=== PATIENT | male | born 1970 | race Caucasian/White ===

== ENCOUNTER 2016-02-20 07:39 | Day surgery (SDC) | payer MEDICAID ==
[2016-02-20] VITALS (12 sets, daily range): BP systolic 102–148; BP diastolic 61–98
[~2016-02-20] VITALS: Ht 170.2 cm; Wt 123.4 kg
[~2016-02-20 07:39] MED LIST: ALPR0.5T PO; ALPR0.5T7 PO; ALPR1TAB7 PO; ATOR20TA66 PO; DILT240C PO; DILT240C86 PO; DOXA8TAB73 PO; DOXY100C42 PO; EPIN0.3A3 IJ; FURO40TA4 PO; GABA600T2 PO; HYDR-3816 PO; HYDR-757 PO; HYDR25TA4 PO; MECL-124 PO; METO200T32 PO; OXYC-471 PO; SULF-222 PO; TIMO5DRO5 OS; TOPI100T11 PO; TOPI50TA13 PO; TRAM50TA2 PO; TRAV5DRO OU; ZOLP10TA5 PO
--- OUTSIDE RECORDS SUMMARY | 2016-02-20 07:43 | XMS REPORT | Continuity of Care Document ---
Author Author [facility] Organization [facility] Address Unknown Phone Unavailable Care Team Providers Care Certified Fraud Examiner Name Role Phone KIMBERLY KNIGHT DO PCP Insurance Providers Payer Name Policy Number [facility]scriber [facility] [id number] Gama Velásquez 18 Self / Same As Patient Advance Directives Directive Response Recorded Date/Time Advance Directives No 10/02/15 10:30am Health Care Power of Supervisor Wet Room No 10/02/15 10:30am Organ Donor Yes 10/02/15 10:30am Resuscitation Status Full Code 10/02/15 10:30am Problems Active Problems Medical Problem Onset Date Status Cellulitis of left thigh Unknown Acute Cellulitis of left thigh Unknown Acute Drug-seeking behavior Unknown Acute Drug-seeking behavior Unknown Acute Postoperative pain Unknown Acute Postoperative pain Unknown Acute Right wrist sprain Unknown Acute Medications Current Home Medications Medication Dose Units Route Directions Days/Qty Instructions Start Date Meclizine Hcl 25 Mg 25 Mg Oral Three Times A Day as needed for Dizziness 12/09/14 Gabapentin 600 Mg 600 Mg Oral Twice A Day 03/12/15 Diltiazem Hcl 240 Mg 240 Mg Oral Daily 03/12/15 Furosemide 40 Mg 40 Mg Oral Daily 03/12/15 Zolpidem Tartrate 10 Mg 5-10 Mg Oral Bedtime as needed for Insomnia TAKES ONE-HALF TO ONE OF A (10 MG) TABLET 03/12/15 Metoprolol Succinate 200 Mg 200 Mg Oral Daily 03/12/15 Atorvastatin Calcium 20 Mg 20 Mg Oral Daily 03/12/15 Doxazosin Mesylate 8 Mg 8 Mg Oral Daily 03/12/15 Timolol Maleate 5 Ml 1 Drop Left Eye Daily 03/12/15 Travoprost 5 Ml 1 Drop Each Eye Bedtime 03/12/15 Epinephrine 0.3 Mg/0.3 Ml 0.3 Mg Injection As Directed as needed for Anaphylactic Reactions 03/12/15 Oxycodone Hcl/Acetaminophen 1 Each 1-2 Each Oral 4-6 Hrs for Pain 40 MAY TAKE 1 OR 2 TABLETS BY MOUTH EVERY 4 TO 6 HRS NEEDED FOR PAIN. DO NOT EXCEED 3000 MG TYLENOL(ACETAMINOPHEN)IN A 24 HR PERIOD(NO MORE THAN 9 TABS IN 24 HRS). LAST PAIN MEDICATION, ONE TABLET, GIVEN AT 1:25 PM 05/22/15. 05/22/15 Alprazolam 1 Mg 1 Mg Oral Bedtime 09/26/15 Topiramate 100 Mg 100 Mg Oral Twice A Day 09/26/15 Alprazolam 1 Mg 0.5 Mg Oral Daily take 1/2 of 1 mg tab 09/26/15 Hydrocodone/Acetaminophen 1 Each 1 Each Oral Every 6 Hours for Pain 40 10/02/15 Past Home Medications Medication Directions Ordered Status Trimethoprim/Sulfamethoxazole 1 Ea Tablet, 1 Tab Oral Twice A Day 08/18/14 Discontinued Doxycycline Monohydrate 100 Mg Capsule, 100 Mg Oral Twice A Day 08/18/14 Discontinued Tramadol Hcl 50 Mg Tablet, 50 Mg Oral Every 4HRS as needed for Pain 08/18/14 Discontinued Hydrocodone Bit/Acetaminophen 1 Each Tablet, 1 Ea Oral Every 6 Hours as needed for Severe Pain 08/24/14 Discontinued Alprazolam 0.5 Mg Tablet, 0.5 Mg Oral Twice A Day 12/09/14 Discontinued Hydrocodone/Acetaminophen 1 Each Tablet, 1 Tab Oral Every 6 Hours as needed for Pain 12/09/14 Discontinued Diltiazem Hcl 240 Mg Cap.er.24h, 240 Mg Oral Daily 02/14/15 Discontinued Hydrochlorothiazide 25 Mg Tablet, 25 Mg Oral Daily 03/12/15 Discontinued Alprazolam 0.5 Mg Tablet, 0.5 Mg Oral Twice A Day as needed for Anxiety 03/12 Discontinued Topiramate 50 Mg Tablet, 50 Mg Oral Twice A Day 03/12/15 Discontinued Social History Social History Problem Response Recorded Date/Time Alcohol Use Denies Use 05/22/2015 8:37am Recreational Drug Use No 05/22/2015 8:37am Recent Foreign Travel No 10/02/2015 10:30am Recent Infectious Disease Exposure No 10/02/2015 10:30am HIV/AIDS No 10/02/2015 10:30am Smoking Status Former Smoker 10/02/2015 10:35am Query Response Start Date Stop Date Smoking Status Former Smoker 03/12/2002 Hospital Discharge Instructions No hospital discharge instructions. Plan of Care Discharge Date 10/02/15 2:55pm Instructions/Education Provided ANESTHESIA INSTRUCTIONS POSTOP DR. TRINIDAD-SHOULDER SURGERY Prescriptions See Medication Section Functional Status No functional status results. Allergies, Adverse Reactions, Alerts Allergen Type Severity Reaction Status Last Updated Penicillins ([id number]) Allergy Intermediate N/V Active 05/17/15 Aspirin Allergy Intermediate STOMACH ACHE Active 05/17/15 Immunizations No immunization records. Vital Signs Acute Vital Signs Vital Response Date/Time Temperature (Fahrenheit) 96.4 degrees F (97.6 - 99.5) 10/02/2015 2:30pm Temperature (Calculated Celsius) 35.05992 degrees C (36.4 - 37.5) 10/02/2015 2:30pm Temperature Source Temporal 10/02/2015 2:30pm Pulse Rate (adult) 55 bpm (60 - 90) 10/02/2015 2:30pm Respiratory Rate 18 bpm (12 - 24) 10/02/2015 2:30pm O2 Sat by Pulse Oximetry 97 % (88 - 100) 10/02/2015 2:30pm Blood Pressure 125/64 mm Hg 10/02/2015 2:30pm Blood Pressure Mean 93 mm Hg 10/02/2015 10:30am Pain Numeric Pain Scale 4 10/02/2015 1:46pm Pain Intensity 6 10/02/2015 2:30pm Height (Feet) 5 feet 10/02/2015 10:30am Height (Inches) 7.00 inches 10/02/2015 10:30am Height (Calculated Centimeters) 170.222652 cm 10/02/2015 10:30am Weight (Pounds) 277 pounds 10/02/2015 10:30am Weight (Ounces) 3.0 oz 10/02/2015 10:30am Weight (Calculated Grams) 995981.136 gm 10/02/2015 10:30am Weight (Calculated Kilograms) 125.394784 kilograms 10/02/2015 10:30am Calculated BMI 46.09 10/02/2015 10:30am Capillary Refill Capillary Refill Less Than 3 Seconds 10/02/2015 10:30am Results Pending Laboratory Results Test Name Collection Date/Time Pending Microbiology Results Procedure Source Collection Date/Time Procedures Procedure Status Date Provider(s) Arthroscopy of right shoulder Completed 10/02/15 FRANCISCO TRINIDAD MD Encounters Encounter Location Arrival/Admit Date Discharge/Depart Date Attending Provider Departed [facility] 10/02/15 10:15am 10/02/15 2:55pm FRANCISCO TRINIDAD MD Departed Clinic [facility] 09/26/15 10:59am 09/26/15 11: 26am FRANCISCO TRINIDAD MD
--- OUTSIDE RECORDS SUMMARY | 2016-02-20 07:43 | XMS REPORT | Continuity of Care Document ---
Author Author [facility] Organization [facility] Address Unknown Phone Unavailable Care Team Providers Care Ladle Repairer Name Role Phone KIMBERLY KNIGHT DO PCP Insurance Providers Payer Name Policy Number [facility] [id number] Gama Velásquez 18 Self / Same As Patient Advance Directives Directive Response Recorded Date/Time Advance Directives No 10/02/15 10:30am Health Care Power of Medical Instructor No 10/02/15 10:30am Organ Donor Yes 10/02/15 [...] Type Severity Reaction Status Last Updated Penicillins ([id number]) Allergy Intermediate N/V Active 05/17/15 Aspirin Allergy Intermediate STOMACH ACHE Active 05/17/15 Immunizations No immunization records. Vital Signs Acute Vital Signs Vital Response Date/Time Temperature (Fahrenheit) 96.4 degrees F (97.6 - 99.5) 10/02/2015 2:30pm Temperature (Calculated Celsius) 35.28215 degrees C (36.4 - 37.5) 10/02/2015 2:30pm [...] 7.00 inches 10/02/2015 10:30am Height (Calculated Centimeters) 170.589696 cm 10/02/2015 10:30am Weight (Pounds) 277 pounds 10/02/2015 10:30am Weight (Ounces) 3.0 oz 10/02/2015 10:30am Weight (Calculated Grams) 493626.136 gm 10/02/2015 10:30am Weight (Calculated Kilograms) 125.955306 kilograms 10/02/2015 10:30am Calculated BMI 46.09 10/02/2015 10:30am Capillary Refill Capillary Refill Less Than 3 Seconds 10/02/2015 10:30am Results Pending Laboratory Results Test Name Collection Date/Time Pending Microbiology Results Procedure Source Collection Date/Time Procedures Procedure Status Date Provider(s) Arthroscopy of right shoulder Completed 10/02/15 FRANCISCO TRINIDAD MD Encounters Encounter Location Arrival/Admit Date Discharge/Depart Date Attending Provider Departed [facility] Day [facility] 10/02/15 10:15am 10/02/15 2:55pm FRANCISCO TRINIDAD MD Departed Clinic [facility] 09/26/15 10:59am 09/26/15 11: 26am FRANCISCO TRINIDAD MD
[2016-02-20] MEDS ORDERED: ceFAZolin 1,000 MG (ANCEF) VIAL ONE (07:49)
[2016-02-20] MEDS ORDERED: LIDOCAINE 1% INJ 20 ML (XYLOCAINE) VIAL ONE (07:49)
[2016-02-20] MEDS ORDERED: NS IV 1000 ML 1,000 ML ONE (07:50)
[2016-02-20] MEDS ORDERED: VANCOMYCIN 1000 MG/VIAL ONE (07:50)
[2016-02-20] MEDS ORDERED: HEParin (CATH LAB) 1,000 ML IV ONE (07:50)
[2016-02-20] MEDS ORDERED: NS (IVPB) 250 ML ONE (07:51)
[2016-02-20] MEDS ORDERED: BACITRACIN INJECTION 50,000 UNIT, SODIUM CHLORIDE 0.9% IRRIGATIO 500 ML IR ONE ×2 (08:15)
[2016-02-20 08:30] LABS: MEAN PLATELET VOLUME 12.5 FL (7.4-10.4); RED BLOOD COUNT 4.89 10^6/uL (4.35-5.85); RED CELL DISTRIBUTION WIDTH 12.8 % (10.0-14.5); WHITE BLOOD COUNT 5.6 10^3/uL (4.3-11.0)
--- NOTE | 2016-02-20 08:34 | Diagnostic Imaging Report ---
Portable upright radiograph of the chest. INDICATION: Bradycardia. FINDINGS: The lungs are clear. The heart size is normal. No effusion or pneumothorax. The mediastinum and karan appear unremarkable. IMPRESSION: Unremarkable exam. Dictated by: Dictated on workstation # [id number]
[2016-02-20 08:39] LABS: INR 1.1 (0.8-1.4); PROTHROMBIN TIME PATIENT 13.5 SEC (12.2-14.7)
[2016-02-20] MEDS: NS IV 1000 ML 1,000 ML IV SCH ×2 (08:45→16:30)
[2016-02-20 08:48] LABS: ALANINE AMINOTRANSFERASE 16 U/L (0-55); ALBUMIN 4.1 G/DL (3.2-4.5); ANION GAP 11 MMOL/L (5-14); ASPARTATE AMINO TRANSFERASE 18 U/L (5-34); BILIRUBIN,TOTAL 0.9 MG/DL (0.1-1.0); BLOOD UREA NITROGEN 14 MG/DL (7-18); BUN/CREATININE RATIO 15; CALCIUM 9.1 MG/DL (8.5-10.1); CARBON DIOXIDE 20 MMOL/L (21-32); CHLORIDE 109 MMOL/L (98-107); CREATININE SERUM 0.95 MG/DL (0.60-1.30); GFR ESTIMATED > 60; GLUCOSE 97 MG/DL (70-105); POTASSIUM 3.3 MMOL/L (3.6-5.0); SODIUM 140 MMOL/L (135-145); TOTAL PROTEIN 7.2 G/DL (6.4-8.2)
[2016-02-20] MEDS ORDERED: MIDAZOLAM 5 MG/5 ML (VERSED) VIAL ONE ×2 (10:32→11:19)
[2016-02-20] MEDS ORDERED: fentaNYL INJECTION 100 MCG/2 ML AMP ONE ×2 (10:32→11:45)
[2016-02-20] MEDS ORDERED: diphenhydrAMINE 50 MG/ML INJ (BENADRYL) ONE (11:19)
[2016-02-20] MEDS ORDERED: POTASSIUM CL 10MEQ/50ML IVPB 200 ML IV ONE (11:34)
[2016-02-20] MEDS ORDERED: NEO/POLY/BAC (NEOSPORIN) OINT 15 GM TUBE ONE (13:23)
--- NOTE | 2016-02-20 13:34 | Cardiac Procedure Note-CS/ASA ---
Pre-Procedure Note Pre-Op Procedure Note H&P Reviewed The H&P was reviewed, patient examined and no changes noted. Date H&P Reviewed: Feb 20, 2016 Time H&P Reviewed: 10:00 Conscious Sedation Pre-Proced Time Reviewed: 10:00 ASA Class: 3 Airway Mallampati Classification: (chicken ranch appropriate class) I. II. III, IV Lungs Heart ASA score ASA 1: a normal healthy patient ASA 2: a patient with a mild systemic disease (mid diabetes, controlled hypertension, obesity ASA 3: a patient with a severe systemic disease that limits activity (angina , COPD, prior Myocardial infarction) ASA 4: a patient with an incapacitating disease that is a constant threat to life (CHF, renal failure) ASA 5: a moribund patient not expected to survive 24 hrs. (ruptured aneurysm) ASA 6: a declared brain patient whose organs are being harvested. For emergent operations, add the letter E after the classification Grade 1 Sedation Plan: Analgesia, Amnesia, Plan communicated to team members, Discussed options with patient/fam, Discussed risks with patient/fam Note The patient is an appropriate candidate to undergo the planned procedure, sedation, and anesthesia. The patient immediately re-assessed prior to indication. Laurence PANG MD Feb 20, 2016 1:34 pm
[2016-02-20] MEDS ORDERED: NS IV 1000 ML 1,000 ML IV SCH (13:36)
--- NOTE | 2016-02-20 13:36 | Progress Note-Post Operative ---
Post-Operative Progess Note Pre-Operative Diagnosis severe symptomatic sick sinus syndrome and bradycardia Post-Operative Diagnosis SSS, s/p dual chamber permanent pacemaker Post-Op Procedure Note Date of Procedure: Feb 20, 2016 Name of Procedure: Permanent pacemaker implantation, LINQ removal Procedure Note/Findings dual chamber permanent pacemaker implantation, LINQ removal. Anesthesia Type Local Anesthesia, Conscious sedation Estimated blood loss (mL): 20 ml Packing: none Specimen(s) collected none Laurence PANG MD Feb 20, 2016 1:36 pm
[2016-02-20] MEDS ORDERED: PATIENT MAY USE OWN MEDS, ALL PO SCH (13:45)
--- NOTE | 2016-02-20 17:14 | Diagnostic Imaging Report ---
INDICATION: Chest pain. Portable chest at 2:17 PM FINDINGS: There is left subclavian dual-chamber pacemaker. Heart size and pulmonary vascularity are normal. Lungs are clear. There are no effusions or pneumothoraces. IMPRESSION: No acute abnormalities in the chest. Dictated by: Dictated on workstation # [id number]
[2016-02-21] VITALS: BP 117/73
[2016-02-21 04:00] VITALS: BP 116/70
[2016-02-21 04:38] LABS: MEAN PLATELET VOLUME 13.4 FL (7.4-10.4); RED BLOOD COUNT 4.12 10^6/uL (4.35-5.85); RED CELL DISTRIBUTION WIDTH 12.8 % (10.0-14.5); WHITE BLOOD COUNT 5.7 10^3/uL (4.3-11.0)
[2016-02-21 05:05] LABS: ALANINE AMINOTRANSFERASE 14 U/L (0-55); ALBUMIN 3.1 G/DL (3.2-4.5); ANION GAP 7 MMOL/L (5-14); ASPARTATE AMINO TRANSFERASE 14 U/L (5-34); BILIRUBIN,TOTAL 0.4 MG/DL (0.1-1.0); BLOOD UREA NITROGEN 14 MG/DL (7-18); BUN/CREATININE RATIO 17; CALCIUM 7.9 MG/DL (8.5-10.1); CARBON DIOXIDE 19 MMOL/L (21-32); CHLORIDE 114 MMOL/L (98-107); CREATININE SERUM 0.84 MG/DL (0.60-1.30); GFR ESTIMATED > 60; GLUCOSE 113 MG/DL (70-105); POTASSIUM 3.7 MMOL/L (3.6-5.0); SODIUM 140 MMOL/L (135-145); TOTAL PROTEIN 5.5 G/DL (6.4-8.2)
[2016-02-21] MEDS: NS IV 1000 ML 1,000 ML IV SCH (08:28)
[2016-02-21] MEDS ORDERED: VANCOMYCIN IV ADD-VANTAGE 1,000 MG in SODIUM CHLORIDE (ADD-VANTAGE) 250 ML IV SCH (09:00)
[2016-02-21 09:02] VITALS: BP 122/79
--- NOTE | 2016-02-21 09:08 | PROCEDURE REPORT ---
PROCEDURE PHYSICIAN: JOSEPHINE VALDEZ DUAL CHAMBER PERMANENT PACEMAKER IMPLANTATION: DATE OF PROCEDURE: 02/20/2016 PRIMARY PIN GAME MACHINE INSPECTOR: Dr. Alton Bourgeois INDICATION: Symptomatic severe sick sinus syndrome and bradycardia. PREOPERATIVE DIAGNOSIS: Symptomatic severe sick sinus syndrome and bradycardia. POSTOPERATIVE DIAGNOSIS: 1. Severe symptomatic sick sinus syndrome and bradycardia. 2. Atrial fibrillation/SVT during the procedure. 3. Status post dual-chamber permanent pacemaker implantation. 4. Implantable loop recorder explantation. HISTORY: Mr. Velásquez is a 45-year-old gentleman who follows with Dr. Alton Bourgeois. He was referred for evaluation of symptomatic severe sick sinus syndrome. The patient had episodes of syncope and numerous episodes of near syncope. A previous implantable loop recorder was placed. Device interrogation showed significant bradycardia, with lowest heart rate of 38 bpm. Significant bradycardia was also noted during daytime as well which correlated with significant symptoms which included syncope, near syncope, dizziness, and fatigue. The patient was therefore recommended a dual-chamber permanent pacemaker. PERFORMING PHYSICIAN: Dr. Woody Valdez MD PROCEDURE PERFORMED: 1. Dual-chamber permanent pacemaker implantation. 2. Fluoroscopy. 3. Central venous access. 4. Implantable loop recorder explantation. ANESTHESIA: Local anesthesia, conscious sedation. PROCEDURE DETAILS: After all of the patient's questions were answered, the patient was brought to the [facility]. The patient's left upper chest was prepped and draped in the usual sterile fashion. A 2 inch horizontal incision was made 1 cm below the clavicle and dissection carried down to the pectoralis fascia. Using the modified Seldinger technique and under fluoroscopy guidance, the anterior aspect of the left axillary vein was accessed 2 times. The J-wire was secured to the drapes with a mosquito clamp. A 7-Swiss sheath was introduced over one of the J- wires. The RV lead was inserted. The RV lead was directed across tricuspid valve to an apical septal portion of the right ventricle. The position was checked on fluoroscopy. The screw was deployed and the lead connected to the flaker tender. Close sensing and the pacing thresholds were obtained. Diaphragmatic pacing was ruled out. The lead was secured with a 2-0 silk tie to the underlying muscle and fascia. Next, a 7-Swiss sheath was introduced through the remaining J-wire. An atrial lead was then introduced and guided to the level of the right appendage. The screw was deployed and the lead was connected to the interrogator. Good sensing and pacing thresholds were obtained. Diaphragmatic pacing was ruled out. The leads were secured with 2-0 silk ties to the underlying muscle and fascia. The leads were connected to the device in a hermetic fashion. The device and leads were placed in the pocket. Aggressive irrigation with saline solution was done. The device was secured to the underlying muscle and fascia with a 2-0 silk tie. Interrogation of the device revealed good integrity of the leads and good connections. The wound was closed using 3 layers. The first layer was interrupted 2-0 absorbable suture followed by an uninterrupted 2-0 suture. The last layer was a single subcuticular layer with a 4-0 suture. Half-inch Steri-Strips and a small dressing were then applied to the wound. We then prepped the sternal area in the 4th intercostal space. A small incision was made and the LINQ implantable loop recorder was explanted. The site was closed with Steri-Strips. The patient tolerated the procedure well and was returned to the recovery room in stable condition with stable vital signs. DEVICE INTERROGATION: The device is [employer] MRI safe DR; model number A2DR01, serial number [id number] [employer]. Right atrial lead: Model number 386395, length 52 cm, serial number: [id number], [employer]. Right ventricular lead: Model 5076-58, length 58 cm, serial number [id number], [employer] DEVICE INTERROGATION: Right atrium capture threshold 0.9 volts at 0.5 ms. Impedance 437 ohms. P-wave was 2.1 mV. Right ventricle capture threshold was 0.4 volts at 0.5 ms. Impedance 1013. R-wave was 9.7 mV COMPLICATIONS: None. ESTIMATED BLOOD LOSS: Less than 10 mL. FLUOROSCOPY TIME: 10.8 minutes. FLUOROSCOPY DOSE: Was 145 mGy. PLAN: The patient will be transferred to the ICU. We will continue IV antibiotics. Chest x-ray will be checked to rule out pneumothorax. Device interrogation in the morning. The patient will continue on oral antibiotics for 5 days. Job ID: [id number] Dictated Date: 02/20/2016 16:36:56 Finishing Frame Runner Date: 02/21/2016 08:42:07 / claudia SIMENTAL
[2016-02-21] MEDS ORDERED: CLIN300C11 PO (12:04)
--- NOTE | 2016-02-21 12:05 | Discharge Inst-Post Device ---
Discharge Inst-Post Device Follow up/Plan Follow-up with Dr. Bourgeois. Follow-up with Dr. Valdez for wound check in one week. Heart Healthy Diet Do not lift arm on side of device placement above head for 4 weeks. Do not push and pull heavy objects for 4 weeks. Activity as tolerated. Leave dressing on until follow up at the office. Laurence VALDEZ MD Feb 21, 2016 12:05 pm
--- NOTE | 2016-02-21 12:10 | Cardiology Discharge Summary ---
Diagnosis/Chief Complaint Date of Admission 02/20/2016 Date of Discharge 02/21/2016 Admission Diagnosis Symptomatic severe sinus node dysfunction and bradycardia Final/Discharge Diagnosis Symptomatic severe sinus node dysfunction and bradycardia, status post dual- chamber permanent pacemaker, status post linq removal Chief Complaint/HPI Chief Complaint/HPI Symptomatic severe sinus node dysfunction and bradycardia Discharge Summary Procedures Dual-chamber permanent pacemaker implantation, implantable loop recorder explantation Discharge Physical Examination Mild swelling of left upper extremity. Normal left upper chest site. Normal lung and heart examination. Hospital Course Chest x-ray: No pneumothorax, Normal device interrogation Normal telemetry Radiology Reviewed Chest x-ray: No pneumothorax Discussion & Recommendations Discussion Discharge took over 30 minutes to complete. Mild left upper extremity swelling: Most likely secondary to leads placement in the axillary vein. Should improve in 2-3 days. Will follow-up in a week. Normal device function with no complication noted. Stable for discharge. Follow up appt.: Dr. Bourgeois and Dr. Valdez (wound check) Dicharge Diet: Cardiac Diet Activity as Tolerated: Yes Home Medications Reviewed patient Home Medication Reconciliation Form Discharge Home Medications: Reviewed and agree with Discharge Medication list on patient's Discharge Instruction sheet Condition at discharge Stable Instructions to patient/family Follow-up with Dr. Bourgeois. Follow-up with Dr. Valdez for wound check in one week. Diagnosis/Problems Diagnosis/Problems (1) Sinus node dysfunction Status: Chronic Laurence VALDEZ MD Feb 21, 2016 12:10 pm
[2016-02-21 12:30] VITALS: BP 132/74
[2016-02-21 13:30] VITALS: BP 132/74
== END 2016-02-21 13:30 | disposition home or self-care (01) ==
LOC: CATH 07:39 → ICU 14:30 → CATH 02-21 13:30
PROVIDERS: ATTEND Internal Medicine Interventional Cardiology
DX: I49.5 Sick sinus syndrome (principal); I48.91 Unspecified atrial fibrillation; I10 Essential (primary) hypertension; E78.5 Hyperlipidemia, unspecified; F17.210 Nicotine dependence, cigarettes, uncomplicated; Z79.899 Other long term (current) drug therapy
CPT/HCPCS: 33208; 33284; 36415; 71010; 80053; 85027; 85610; 85730; 87081; 93005

== ENCOUNTER 2016-03-18 09:16 | Outpatient (CLI) | payer MEDICAID ==
[~2016-03-18] VITALS: Ht 170.2 cm; Wt 126.1 kg
[~2016-03-18 09:16] MED LIST changes: +CLIN300C11 PO
--- OUTSIDE RECORDS SUMMARY | 2016-03-18 09:20 | XMS REPORT | Continuity of Care Document ---
Author Author [facility] Organization [facility] Address Unknown Phone Unavailable Care Team Providers Care Graphic Design Assistant Name Role Phone KIMBERLY NKIGHT DO PCP Insurance Providers Payer Name Policy Number [facility]scriber [facility] [id number] Gama Velásquez 18 Self / Same As Patient Advance Directives Directive Response Recorded Date/Time Advance Directives No 10/02/15 10:30am Health Care Power of Knitting Machine Fixer Head No 10/02/15 10:30am Organ Donor Yes 10/02/15 [...] Type Severity Reaction Status Last Updated Penicillins ([id number]) Allergy Intermediate N/V Active 05/17/15 Aspirin Allergy Intermediate STOMACH ACHE Active 05/17/15 Immunizations No immunization records. Vital Signs Acute Vital Signs Vital Response Date/Time Temperature (Fahrenheit) 96.4 degrees F (97.6 - 99.5) 10/02/2015 2:30pm Temperature (Calculated Celsius) 35.99785 degrees C (36.4 - 37.5) 10/02/2015 2:30pm [...] 7.00 inches 10/02/2015 10:30am Height (Calculated Centimeters) 170.673915 cm 10/02/2015 10:30am Weight (Pounds) 277 pounds 10/02/2015 10:30am Weight (Ounces) 3.0 oz 10/02/2015 10:30am Weight (Calculated Grams) 874551.136 gm 10/02/2015 10:30am Weight (Calculated Kilograms) 125.176093 kilograms 10/02/2015 10:30am Calculated BMI 46.09 10/02/2015 10:30am Capillary Refill Capillary Refill Less Than 3 Seconds 10/02/2015 10:30am Results Pending Laboratory Results Test Name Collection Date/Time Pending Microbiology Results Procedure Source Collection Date/Time Procedures Procedure Status Date Provider(s) Arthroscopy of right shoulder Completed 10/02/15 FRANCISCO TRINIDAD MD Encounters Encounter Location Arrival/Admit Date Discharge/Depart Date Attending Provider Departed [facility] Day [facility] 10/02/15 10:15am 10/02/15 2:55pm FRANCISCO TRINIDAD MD Departed Clinic [facility] 09/26/15 10:59am 09/26/15 11: 26am FRANCISCO TRINIDAD MD
[2016-03-18 09:37] VITALS: BP 131/81
[2016-03-18 09:58] LABS: BASOPHILS % (AUTO) 0 % (0-10); EOSINOPHILS # (AUTO) 0.1 10^3/uL (0.0-0.3); EOSINOPHILS % (AUTO) 2 % (0-10); LYMPHOCYTES # (AUTO) 1.5 X 10^3 (1.0-4.0); LYMPHOCYTES % (AUTO) 26 % (12-44); MEAN CORPUSCULAR HEMOGLOBIN 30 PG (25-34); MEAN CORPUSCULAR HGB CONC 34 G/DL (32-36); MEAN CORPUSCULAR VOLUME 88 FL (80-99); MEAN PLATELET VOLUME 12.5 FL (7.4-10.4); MONOCYTES # (AUTO) 0.6 X 10^3 (0.0-1.0); MONOCYTES % (AUTO) 10 % (0-12); NEUTROPHILS # (AUTO) 3.4 X 10^3 (1.8-7.8); NEUTROPHILS % (AUTO) 61 % (42-75); PLATELET COUNT 143 10^3/uL (130-400); RED CELL DISTRIBUTION WIDTH 12.8 % (10.0-14.5); WHITE BLOOD COUNT 5.6 10^3/uL (4.3-11.0)
[2016-03-18 10:15] LABS: ANION GAP 8 MMOL/L (5-14); BLOOD UREA NITROGEN 17 MG/DL (7-18); BUN/CREATININE RATIO 17; CALCIUM 8.6 MG/DL (8.5-10.1); CARBON DIOXIDE 21 MMOL/L (21-32); CHLORIDE 112 MMOL/L (98-107); CREATININE SERUM 0.99 MG/DL (0.60-1.30); GFR ESTIMATED > 60; GLUCOSE 92 MG/DL (70-105); SODIUM 141 MMOL/L (135-145)
== END 2016-03-18 11:00 | disposition home or self-care (01) ==
LOC: PREOP 09:16
PROVIDERS: ATTEND Orthopaedic Surgery
DX: Z01.812 Encounter for preprocedural laboratory examination (principal); Z11.2 Encounter for screening for other bacterial diseases; M19.011 Primary osteoarthritis, right shoulder
CPT/HCPCS: 36415; 80048; 85025; 87081

== ENCOUNTER 2016-03-25 06:15 | Day surgery (SDC) | payer MEDICAID ==
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
[~2016-03-25] VITALS: Ht 170.2 cm; Wt 126.1 kg
--- OUTSIDE RECORDS SUMMARY | 2016-03-25 06:23 | XMS REPORT | Continuity of Care Document ---
Author Author [facility] Organization [facility] Address Unknown Phone Unavailable Care Team Providers Care Acute Care Nursing Assistant Name Role Phone KIMBERLY KNIGHT DO PCP Insurance Providers Payer Name Policy Number Subscriber Name Relationship [facility] [id number] Gama Velásquez 18 Self / Same As Patient Advance Directives Directive Response Recorded Date/Time Advance Directives No 10/02/15 10:30am Health Care Power of Security Lead No 10/02/15 10:30am Organ Donor Yes 10/02/15 [...] Type Severity Reaction Status Last Updated Penicillins ([id number]) Allergy Intermediate N/V Active 05/17/15 Aspirin Allergy Intermediate STOMACH ACHE Active 05/17/15 Immunizations No immunization records. Vital Signs Acute Vital Signs Vital Response Date/Time Temperature (Fahrenheit) 96.4 degrees F (97.6 - 99.5) 10/02/2015 2:30pm Temperature (Calculated Celsius) 35.23075 degrees C (36.4 - 37.5) 10/02/2015 2:30pm [...] 7.00 inches 10/02/2015 10:30am Height (Calculated Centimeters) 170.692227 cm 10/02/2015 10:30am Weight (Pounds) 277 pounds 10/02/2015 10:30am Weight (Ounces) 3.0 oz 10/02/2015 10:30am Weight (Calculated Grams) 405998.136 gm 10/02/2015 10:30am Weight (Calculated Kilograms) 125.511933 kilograms 10/02/2015 10:30am Calculated BMI 46.09 10/02/2015 10:30am Capillary Refill Capillary Refill Less Than 3 Seconds 10/02/2015 10:30am Results Pending Laboratory Results Test Name Collection Date/Time Pending Microbiology Results Procedure Source Collection Date/Time Procedures Procedure Status Date Provider(s) Arthroscopy of right shoulder Completed 10/02/15 FRANCISCO TRINIDAD MD Encounters Encounter Location Arrival/Admit Date Discharge/Depart Date Attending Provider Departed [facility] 10/02/15 10:15am 10/02/15 2:55pm FRANCISCO TRINIDAD MD Departed Clinic [facility] 09/26/15 10:59am 09/26/15 11: 26am FRANCISCO TRINIDAD MD
--- OUTSIDE RECORDS SUMMARY | 2016-03-25 06:24 | XMS REPORT | Continuity of Care Document ---
Author Author [facility] Organization [facility] Address Unknown Phone Unavailable Care Team Providers [facility] Assistant Director Name Role Phone KIMBERLY KNIGHT DO PCP Insurance Providers Payer Name Policy Number [facility]scriber [facility] [id number] Gama Velásquez 18 Self / Same As Patient Advance Directives Directive Response Recorded Date/Time Advance Directives No 10/02/15 10:30am Health Care Power of Transit Manager No 10/02/15 10:30am Organ Donor Yes 10/02/15 [...] Type Severity Reaction Status Last Updated Penicillins ([id number]) Allergy Intermediate N/V Active 05/17/15 Aspirin Allergy Intermediate STOMACH ACHE Active 05/17/15 Immunizations No immunization records. Vital Signs Acute Vital Signs Vital Response Date/Time Temperature (Fahrenheit) 96.4 degrees F (97.6 - 99.5) 10/02/2015 2:30pm Temperature (Calculated Celsius) 35.21054 degrees C (36.4 - 37.5) 10/02/2015 2:30pm [...] 7.00 inches 10/02/2015 10:30am Height (Calculated Centimeters) 170.476946 cm 10/02/2015 10:30am Weight (Pounds) 277 pounds 10/02/2015 10:30am Weight (Ounces) 3.0 oz 10/02/2015 10:30am Weight (Calculated Grams) 355744.136 gm 10/02/2015 10:30am Weight (Calculated Kilograms) 125.434577 kilograms 10/02/2015 10:30am Calculated BMI 46.09 10/02/2015 10:30am Capillary Refill Capillary Refill Less Than 3 Seconds 10/02/2015 10:30am Results Pending Laboratory Results Test Name Collection Date/Time Pending Microbiology Results Procedure Source Collection Date/Time Procedures Procedure Status Date Provider(s) Arthroscopy of right shoulder Completed 10/02/15 FRANCISCO TRINIDAD MD Encounters Encounter Location Arrival/Admit Date Discharge/Depart Date Attending Provider Departed Surgical Day Care [facility] 10/02/15 10:15am 10/02/15 2:55pm FRANCISCO TRINIDAD MD Departed Clinic [facility] 09/26/15 10:59am 09/26/15 11: 26am FRANCISCO TRINIDAD MD
[2016-03-25] MEDS: LACTATED RINGERS 1,000 ML IV PRN ×2 (06:30→08:40)
[2016-03-25 06:35] VITALS: BP 116/82
[2016-03-25] MEDS ORDERED: LACTATED RINGERS 1,000 ML IV ONE ×2 (06:56→08:49)
[2016-03-25] MEDS ORDERED: fentaNYL INJECTION 100 MCG/2 ML AMP ONE (06:56)
[2016-03-25] MEDS ORDERED: DEXAMETHASONE PF 10 MG/ML (DECADRON) VIAL ONE (06:56)
[2016-03-25] MEDS ORDERED: ONDANSETRON 4 MG/2 ML (SDV) Z0FRAN ONE (06:56)
[2016-03-25] MEDS ORDERED: proPOfol 200 MG/20 ML (DIPRIVAN) VIAL IV ONE (06:56)
[2016-03-25] MEDS ORDERED: ROCURONIUM 50 MG/5 ML (ZEMURON) VIAL IV ONE (06:56)
[2016-03-25] MEDS ORDERED: MIDAZOLAM 2 MG/2 ML (VERSED) VIAL ONE (06:57)
[2016-03-25] MEDS ORDERED: CLINDAMYCIN 600 MG/50 ML IVPB 50 ML IV ONE ×2 (07:00→07:15)
[2016-03-25] MEDS ORDERED: morphine PF (DURAMORPH) 10 MG/10 ML AMP ONE (07:22)
[2016-03-25] MEDS ORDERED: BUPIVACAINE 0.25% 30 ML (SENSORCAINE) VIAL ONE (07:22)
--- NOTE | 2016-03-25 07:28 | Progress Note-Pre Operative ---
Pre-Operative Progress Note H&P Reviewed The H&P was reviewed, patient examined and no changes noted. 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
[2016-03-25] MEDS ORDERED: oxyCODONE/APAP 5/325MG (PERCOCET 5) TABLET PO PRN (07:30)
--- NOTE | 2016-03-25 07:30 | Progress Note-Post Operative ---
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
--- NOTE | 2016-03-25 08:05 | Anesthesia-Peripheral Nerve Bl ---
Procedure Start/Stop Time Date of Procedure: Mar 25, 2016 Start Time: 07:20 Stop Time: 07:30 Peripheral Nerve Block Peripheral Nerve Blockade Risk/Benefits/Alternatives discussed, including IV injection leading to complications or seizures, nerve irritation or damage, pneumothorax, total spinal anesthesia, injection, and/or bleeding. Approach: right ISB Side Confirmed: RIGHT Indication: Req Pain Mgmt by Surgeon Specifically requested for management of pain by: Dr. Bourgeois Patient Condition Vital Signs Vital Signs Date Time Temp Pulse Resp B/P Pulse Ox O2 Delivery O2 Flow Rate FiO2 03/25/16 06:35 98.4 73 18 116/82 96 Room Air Patient Condition: Sedate/contact maintained Procedure Prepartation: Chlorhexidine Position: Supine Napier: Short-bevel Needle (s) Size: 22g 2" Technique: Nerve Stimulation Motor response or parethesia o: Bicepts twitch mA: 0.5 Sedation Given: Midazolam Injectate: ropivacaine Concentration %: 0.5 Volume (ml): 30 Epinephrine used: No Narrative Injection was made incrementally with constant monitoring. Blood Aspirated: No Pain on injection noted: No Normal Resistance on injection: Yes Events Events: None:easy well tolerated Sucess: Full evaluation-pending Patient Conditon Post Peripheral Nerve Block Post Peripheral Nerve Block Vital Signs: Blood Pressure: Systolic Diastolic Heart Rate Blood Pressure Systolic: 116 Blood Pressure Diastolic: 82 Pulse Rate (adult): 73 PARKER VALLES CRNA Mar 25, 2016 08:05
[2016-03-25] MEDS ORDERED: NEOSTIGMINE (BLOXIVERZ ) 1 MG/1ML 10 ML VIAL ONE (08:49)
[2016-03-25] MEDS ORDERED: GLYCOPYRROLATE 0.2 MG/ML (ROBINUL) 2 ML VIAL ONE (08:49)
[2016-03-25] MEDS ORDERED: SEVOFLURANE (ULTANE) 15 ML INHAL SOLN ONE (08:49)
[2016-03-25] MEDS ORDERED: ONDANSETRON 4 MG/2 ML (SDV) Z0FRAN IV PRN (09:00)
[2016-03-25] MEDS ORDERED: morphine INJ 10 MG/ML 1ML (SYR OR VIAL) IV PRN (09:00)
[2016-03-25] MEDS ORDERED: morphine INJ 10 MG/ML 1ML (SYR OR VIAL) ONE (09:34)
[2016-03-25 10:10] VITALS: BP 115/81
[2016-03-25] MEDS ORDERED: OXYC-471 PO (10:27)
[2016-03-25 10:40] VITALS: BP 118/77
[2016-03-25 11:10] VITALS: BP 107/77
--- NOTE | 2016-03-26 12:45 | OPERATIVE REPORT ---
PROCEDURE PHYSICIAN: FRANCISCO TRINIDAD DATE OF PROCEDURE: 03/25/2016 PREOPERATIVE DIAGNOSIS: 1. Right primary osteoarthritis of the acromioclavicular joint. 2. Right shoulder impingement. POSTOPERATIVE DIAGNOSIS: 1. Right primary osteoarthritis of the acromioclavicular joint. 2. Right shoulder impingement. PROCEDURE: 1. Right shoulder arthroscopic distal clavicle excision. 2. Right shoulder arthroscopic acromioplasty. SURGEON: Bk CHERRY DIPPER: Jeremy Andrade who assisted throughout the procedure and closed the incisions. ANESTHESIA: General endotracheal plus interscalene nerve block as per my request for postoperative pain management by Sidra Sotelo CRNA. ESTIMATED BLOOD LOSS: Minimal. DRAINS: None. COMPLICATIONS: None. POSTOPERATIVE PLAN: Progressive range of motion as symptoms allow and sling wear for comfort. STATEMENT OF MEDICAL NECESSITY: The patient is a 45-year-old, aebis-rucv-qyegeswc gentleman with complaints of right anterior/superior shoulder pain. There is positive Neer and positive Lin sign. He is tender over his acromioclavicular joint and has pain with crossed body adduction. He failed to respond to extensive conservative measures and due to functional impairment, the patient elected to proceed with surgical intervention. Examination under anesthesia revealed forward elevation 170 degrees, external rotation 85 degrees and internal rotation 70 degrees. Arthroscopic findings demonstrated no labral pathology. Biceps anchor was absent. There was no significant glenoid or humeral head articular wear. The rotator cuff was intact throughout. The subacromial space demonstrated dense bursitis with sloping of anterolateral acromion and hypermobile acromioclavicular joint. PROCEDURE: After risks and benefits of procedure were discussed and questions were answered an informed consent was signed and placed on the chart. The operative site was confirmed in the preoperative holding area and initialed by the surgeon. The patient was then transported to the operating room and after adequate levels of general endotracheal anesthetic were obtained, a timeout was called confirming the operative site. Examination under anesthesia was performed and the right shoulder and aperture were prepped and draped in the usual sterile fashion. The shoulder joint was injected with 20 mL of fluid as was the subacromial space. A standard posterior portal was placed and diagnostic arthroscopy was carried out with the above findings noted. The scope was redirected into the subacromial space and a lateral portal was created. A bursectomy was performed and acromion was planed a flat type I acromion. The scope was then redirected in the lateral portal and through the anterior portal a bur was inserted and the distal 8 mm of clavicle was resected from posterior to anterior and from medial to lateral. The scope was then placed anteriorly to assure adequate resection. The subacromial space was copiously irrigated. Port sites closed with 3-0 nylon in subcuticular fashion. The portal sites were infiltrated with plain Marcaine and the shoulder joint was injected with Duramorph. A soft dressing and sling were applied and the patient was transported to the recovery room, awake, in stable condition Job ID: [id number] Dictated Date: 03/25/2016 08:37:38 Core Checker Date: 03/26/2016 12:37:45 / claudia
== END 2016-03-25 11:23 | disposition home or self-care (01) ==
LOC: SDC 06:15
PROVIDERS: ATTEND Orthopaedic Surgery
DX: M19.011 Primary osteoarthritis, right shoulder (principal); M75.41 Impingement syndrome of right shoulder

== ENCOUNTER → 2016-05-01 | Outpatient (CLI) | payer MEDICAID ==
[~2016-05-01] MED LIST changes: +SULF1TAB35 PO
[2016-05-01 10:03] LABS: ALANINE AMINOTRANSFERASE 15 U/L (0-55); ALBUMIN 3.8 G/DL (3.2-4.5); ANION GAP 11 MMOL/L (5-14); ASPARTATE AMINO TRANSFERASE 18 U/L (5-34); BILIRUBIN,TOTAL 0.5 MG/DL (0.1-1.0); BLOOD UREA NITROGEN 13 MG/DL (7-18); BUN/CREATININE RATIO 13; CALCIUM 9.5 MG/DL (8.5-10.1); CARBON DIOXIDE 22 MMOL/L (21-32); CHLORIDE 110 MMOL/L (98-107); CREATININE SERUM 1.02 MG/DL (0.60-1.30); GFR ESTIMATED > 60; GLUCOSE 96 MG/DL (70-105); POTASSIUM 4.1 MMOL/L (3.6-5.0); SODIUM 143 MMOL/L (135-145); TOTAL PROTEIN 6.8 G/DL (6.4-8.2)
[2016-05-01 10:23] LABS: THYROID STIMULATING HORMONE 1.26 UIU/ML (0.35-4.94)
== END ==
LOC: LAB 09:19
PROVIDERS: ATTEND Internal Medicine Cardiovascular Disease
DX: I10 Essential (primary) hypertension (principal); R00.2 Palpitations; I49.5 Sick sinus syndrome; G47.33 Obstructive sleep apnea (adult) (pediatric); Z95.0 Presence of cardiac pacemaker; I47.1 Supraventricular tachycardia; Z72.0 Tobacco use
CPT/HCPCS: 36415; 80053; 83735; 84443; 85652

== ENCOUNTER 2016-06-05 17:16 | Emergency (ER) | payer MEDICAID ==
[~2016-06-05] VITALS: Ht 170.2 cm; Wt 124.3 kg
[~2016-06-05 17:16] MED LIST changes: -SULF1TAB35 PO
[2016-06-05] MEDS ORDERED: SULF1TAB35 PO (17:34)
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
[2016-06-05 18:14] VITALS: BP 136/82
== END 2016-06-05 18:14 | disposition home or self-care (01) ==
LOC: EDUNIT# 17:16 → ER 17:18
DX: T81.31XA Disruption of external operation (surgical) wound, not elsewhere classified, initial encounter (principal); L76.31 Postprocedural hematoma of skin and subcutaneous tissue following a dermatologic procedure; I10 Essential (primary) hypertension; F17.210 Nicotine dependence, cigarettes, uncomplicated; Z95.0 Presence of cardiac pacemaker
CPT/HCPCS: 87070; 87205; 99282

== ENCOUNTER 2016-06-19 20:17 | Emergency (ER) | payer MEDICAID ==
[~2016-06-19] VITALS: Ht 170.2 cm; Wt 124.3 kg
[~2016-06-19 20:17] MED LIST changes: +SULF1TAB35 PO
[2016-06-19] MEDS ORDERED: LIDOCAINE/EPI 1%-1:100,000 (XYLOCAINE) 20ML INJ STA (21:51)
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
[2016-06-19] MEDS ORDERED: SULF1TAB35 PO (22:11)
[2016-06-19] MEDS ORDERED: RX-TRIMETH/SULFA. 160-800 MG (BACTRIM DS) TAB PPK#2 PO STA (23:04)
[2016-06-19 23:17] VITALS: BP 125/76
== END 2016-06-19 23:17 | disposition home or self-care (01) ==
LOC: EDUNIT# 20:17 → ER 20:19
DX: L76.34 Postprocedural seroma of skin and subcutaneous tissue following other procedure (principal); I10 Essential (primary) hypertension; F17.210 Nicotine dependence, cigarettes, uncomplicated; Z79.899 Other long term (current) drug therapy; Z95.0 Presence of cardiac pacemaker
CPT/HCPCS: 87070; 87205; 99283

== ENCOUNTER → 2016-11-13 | Outpatient (CLI) | payer MEDICAID ==
[~2016-11-13] MED LIST changes: +CATHETER FLUSH 10 ML SYR IV PRN; +IOHEXOL 350 MG/ML 100 ML (OMNIPAQUE 350) VIAL IV ONE; +NS 100 ML (IVPB) BAG IV ONE
--- NOTE | 2016-11-13 14:17 | Diagnostic Imaging Report ---
PROCEDURE: CT left lower extremity with and without contrast. TECHNIQUE: Multiple axial images were obtained through the left lower extremity with and without intravenous contrast. 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 Comparison with 04/16/2015 exam. Images are obtained of the left thigh. Images are pre-and postcontrast. The previously described subcutaneous tissue just anterior to the deep fascial planes in the anterior thigh is unchanged in appearance. There has been development of some fluid along the incision site anterior to this in the subcutaneous location with mean Hounsfield unit of 17. There are no enhancing masses. The deep fascial plane is normal. The muscles bundles appear normal with good preservation of tissue planes. Bone windows again show well-circumscribed 6 mm sclerotic lesion in the lateral femoral condyle. IMPRESSION: 1. There has been development of subcutaneous fluid along the incision site in the anterior thigh. Deep tissue scarring again noted unchanged. No masses or enhancing lesions have developed. The small bone island measuring 6 mm is unchanged in the lateral femoral condyle. Dictated by: Dictated on workstation # [id number]
== END ==
LOC: RAD 10:56
PROVIDERS: ATTEND Orthopaedic Surgery
DX: D49.2 Neoplasm of unspecified behavior of bone, soft tissue, and skin (principal); Z98.890 Other specified postprocedural states
CPT/HCPCS: 73702

== ENCOUNTER → 2017-02-04 | Outpatient (CLI) | payer MEDICAID ==
[~2017-02-04] VITALS: Ht 170.2 cm; Wt 127.5 kg
[~2017-02-04] MED LIST changes: -IOHEXOL 350 MG/ML 100 ML (OMNIPAQUE 350) VIAL IV ONE; -METO200T32 PO; +METO200T4 PO; -NS 100 ML (IVPB) BAG IV ONE; +REGADENOSON 0.4 MG/5 ML SYR (LEXISCAN) IV ONE
[2017-02-04 09:10] VITALS: BP 168/104
--- NOTE | 2017-02-04 19:06 | STRESS TEST ---
DATE OF SERVICE: 02/04/2017 RESTING AND POST REGADENOSON TECHNETIUM-99M TETROFOSMIN SPECT CT IMAGING ORDERING PHYSICIAN: Dr. Alton Bourgeois. PRIMARY CARE PHYSICIAN: Dr. Kenyatta Swan. OTHER PHYSICIAN: DARYN Harmon. CLINICAL DIAGNOSIS: Nonsustained ventricular tachycardia. Baseline images were carried out after injection of 10.16 mCi of technetium-99m tetrofosmin. This was followed by 0.4 mg regadenoson and 32.1 mCi of technetium-99m tetrofosmin for stress imaging. The electrocardiogram showed sinus rhythm at baseline and did not change significantly with the regadenoson infusion. Overall, he tolerated the procedure well. Review of images at rest and following stress does not indicate any significant perfusion defects consistent with significant myocardial ischemia or infarction. Gated images show normal global left ventricular systolic function with normal regional wall motion. Left ventricular ejection fraction is calculated to be 60%. Left ventricular end diastolic volume is 76 mL. TID is absent (1). CONCLUSIONS: 1. No evidence of significant myocardial ischemia or infarction on this study. 2. Normal regional wall motion. 3. Normal global left ventricular systolic function with a calculated ejection fraction of 60%. Job ID: [id number] DocumentID: [id number] Dictated Date: 02/04/2017 14:24:08 Felt Hat Inspector And Packer Date: 02/04/2017 16:41:15 Dictated By: ALTON BOURGEOIS MD, MA, FACP, FACC,
== END ==
LOC: CARD 07:26
PROVIDERS: ATTEND Internal Medicine Cardiovascular Disease
DX: I47.2 Ventricular tachycardia (principal); I47.1 Supraventricular tachycardia; G47.33 Obstructive sleep apnea (adult) (pediatric); I10 Essential (primary) hypertension; E66.8 Other obesity; Z95.0 Presence of cardiac pacemaker; Z72.0 Tobacco use
CPT/HCPCS: 78452; 93017

== ENCOUNTER → 2017-02-19 | Outpatient (CLI) | payer MEDICAID ==
[~2017-02-19] MED LIST changes: -CATHETER FLUSH 10 ML SYR IV PRN; -METO200T4 PO; +METO200T48 PO; -REGADENOSON 0.4 MG/5 ML SYR (LEXISCAN) IV ONE
[2017-02-19 12:38] LABS: BUN/CREATININE RATIO 12; CALCIUM 9.2 MG/DL (8.5-10.1); CARBON DIOXIDE 25 MMOL/L (21-32); CHLORIDE 108 MMOL/L (98-107); CREATININE SERUM 1.21 MG/DL (0.60-1.30); GFR ESTIMATED > 60; GLUCOSE 107 MG/DL (70-105); SODIUM 143 MMOL/L (135-145)
== END ==
LOC: LAB 12:01
PROVIDERS: ATTEND Nurse Practitioner Family
DX: I10 Essential (primary) hypertension (principal); I49.5 Sick sinus syndrome; R00.2 Palpitations; I47.1 Supraventricular tachycardia; I47.2 Ventricular tachycardia; E66.01 Morbid (severe) obesity due to excess calories
CPT/HCPCS: 36415; 80048; 83735

== ENCOUNTER → 2017-02-19 | Outpatient (CLI) | payer MEDICAID | LOC: CARD 10:08 | PROVIDERS: ATTEND Internal Medicine Cardiovascular Disease | DX: I47.2 Ventricular tachycardia (principal); I47.1 Supraventricular tachycardia; Z95.0 Presence of cardiac pacemaker; Z72.0 Tobacco use; G47.33 Obstructive sleep apnea (adult) (pediatric); E66.8 Other obesity; I10 Essential (primary) hypertension | CPT/HCPCS: 93306 ==

== ENCOUNTER → 2017-03-09 | Outpatient (CLI) | payer MEDICAID ==
[2017-03-09 10:45] LABS: MEAN PLATELET VOLUME 12.3 FL (7.4-10.4); RED BLOOD COUNT 5.8 10^6/uL (4.35-5.85); RED CELL DISTRIBUTION WIDTH 12.9 % (10.0-14.5); WHITE BLOOD COUNT 7.1 10^3/uL (4.3-11.0)
[2017-03-09 10:53] LABS: BILIRUBIN,URINE NEGATIVE (NEGATIVE); CLARITY,URINE CLEAR; COLOR,URINE YELLOW; GLUCOSE, URINE (UA) NEGATIVE (NEGATIVE); KETONES,URINE NEGATIVE (NEGATIVE); LEUKOCYTE ESTERASE ,URINE 1+ (NEGATIVE); NITRITE,URINE NEGATIVE (NEGATIVE); PH,URINE 6.5 (5-9); PROTEIN,URINE 2+ (NEGATIVE); UROBILINOGEN,URINE 1 MG/DL (NORMAL)
[2017-03-09 11:02] LABS: BACTERIA,URINE TRACE /HPF; SQUAMOUS EPITHELIAL CELL,UR 0-2 /HPF; WBC,URINE 0-2 /HPF
[2017-03-09 11:09] LABS: ALANINE AMINOTRANSFERASE 24 U/L (0-55); ALBUMIN 4.3 GM/DL (3.2-4.5); ALKALINE PHOSPHATASE 96 U/L (40-136); BILIRUBIN,TOTAL 0.9 MG/DL (0.1-1.0); BUN/CREATININE RATIO 12; CALCIUM 9.9 MG/DL (8.5-10.1); CARBON DIOXIDE 26 MMOL/L (21-32); CHLORIDE 105 MMOL/L (98-107); CREATINE KINASE 100 U/L (30-200); CREATININE SERUM 1.01 MG/DL (0.60-1.30); GFR ESTIMATED > 60; GLUCOSE 96 MG/DL (70-105); POTASSIUM 4.1 MMOL/L (3.6-5.0); SODIUM 138 MMOL/L (135-145); TOTAL PROTEIN 8.1 GM/DL (6.4-8.2)
[2017-03-10 08:34] LABS: HEPATITIS C ANTIBODY C Non-Reactive (Non-Reactive)
== END ==
LOC: LAB 09:15
PROVIDERS: ATTEND Nurse Practitioner
DX: I51.4 Myocarditis, unspecified (principal); I47.2 Ventricular tachycardia
CPT/HCPCS: 36415; 80053; 81000; 82085; 82550; 82652; 82784; 83516; 83520; 84155; 84165; 84443; 85027; 85549; 85652; 86038; 86141; 86160; 86200; 86225; 86235; 86430; 86644; 86645; 86695; 86696; 86703; 86704; 86706; 86709; 86787; 86803; 87799; 87804

== ENCOUNTER → 2017-05-14 | Outpatient (CLI) | payer MEDICAID ==
[~2017-05-14] MED LIST changes: +CATHETER FLUSH 10 ML SYR IV PRN; +HYDR-34 PO; -HYDR-3816 PO; +IOHEXOL 350 MG/ML 100 ML (OMNIPAQUE 350) VIAL IV ONE; +NS 250 ML (IVPB) BAG IV ONE
--- NOTE | 2017-05-14 14:56 | Diagnostic Imaging Report ---
PROCEDURE: CT chest with contrast only. TECHNIQUE: Multiple contiguous axial images were obtained through the chest after administration of intravenous contrast. INDICATION: Cough and lymphadenopathy The lungs are clear and well expanded, bilaterally. There is no significant pleural or pericardial fluid. There is no evidence of pathologically enlarged adenopathy within the mediastinum or pulmonary karan. Axillary and supraclavicular regions are also unremarkable in appearance. There is no evidence of thyroid lesion. Left anterior chest wall dual-chamber cardiac pacemaker is in place. Note is made of low-density in the liver indicating steatosis. IMPRESSION: No acute abnormality in the chest is identified. There is no evidence of pathologically enlarged adenopathy. Dictated by: Dictated on workstation # [id number]
== END ==
LOC: RAD 13:48
PROVIDERS: ATTEND Internal Medicine
DX: R05 Cough (principal); R59.1 Generalized enlarged lymph nodes
CPT/HCPCS: 71260

== ENCOUNTER 2017-07-08 20:26 | Emergency (ER) | payer MEDICAID ==
[~2017-07-08] VITALS: Ht 170.2 cm; Wt 120.2 kg
[~2017-07-08 20:26] MED LIST changes: -CATHETER FLUSH 10 ML SYR IV PRN; -IOHEXOL 350 MG/ML 100 ML (OMNIPAQUE 350) VIAL IV ONE; -NS 250 ML (IVPB) BAG IV ONE
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
[2017-07-08] MEDS ORDERED: METH2.5T (20:51)
[2017-07-08 20:54] LABS: BASOPHILS % (AUTO) 0 % (0-10); EOSINOPHILS # (AUTO) 0.1 10^3/uL (0.0-0.3); EOSINOPHILS % (AUTO) 1 % (0-10); HEMATOCRIT 43 % (40-54); HEMOGLOBIN 14.9 G/DL (13.3-17.7); LYMPHOCYTES # (AUTO) 1.1 X 10^3 (1.0-4.0); LYMPHOCYTES % (AUTO) 11 % (12-44); MEAN CORPUSCULAR HEMOGLOBIN 30 PG (25-34); MEAN CORPUSCULAR HGB CONC 35 G/DL (32-36); MEAN CORPUSCULAR VOLUME 86 FL (80-99); MEAN PLATELET VOLUME 12.1 FL (7.4-10.4); MONOCYTES # (AUTO) 0.9 X 10^3 (0.0-1.0); MONOCYTES % (AUTO) 9 % (0-12); NEUTROPHILS # (AUTO) 7.3 X 10^3 (1.8-7.8); NEUTROPHILS % (AUTO) 78 % (42-75); PLATELET COUNT 167 10^3/uL (130-400); RED BLOOD COUNT 4.95 10^6/uL (4.35-5.85); RED CELL DISTRIBUTION WIDTH 14.3 % (10.0-14.5); WHITE BLOOD COUNT 9.3 10^3/uL (4.3-11.0)
[2017-07-08] MEDS ORDERED: CEFD300C3 PO (20:54)
--- NOTE | 2017-07-08 21:12 | Diagnostic Imaging Report ---
INDICATION: Short of air. Soft tissue carcinoma Two views of the chest show normal heart size and vascularity. The lungs are clear. There is no effusion or pneumothorax. A pacemaker is present. IMPRESSION: No acute abnormality is seen with no change from 12/17/2016. Dictated by: Dictated on workstation # [id number]
[2017-07-08] MEDS ORDERED: BENZ-13 PO (21:22)
[2017-07-08] MEDS ORDERED: LIDOCAINE 1% INJ 20 ML 20 ML VIAL ONE (21:24)
[2017-07-08] MEDS ORDERED: LIDOCAINE 1% INJ 50 ML (XYLOCAINE) VIAL IJ ONE (21:30)
[2017-07-08] MEDS ORDERED: cefTRIAXone 1 GM (ROCEPHIN) VIAL IM ONE (21:30)
[2017-07-08] MEDS ORDERED: diphenhydrAMINE 25 MG TAB (BENADRYL) PO ONE (21:30)
[2017-07-08 21:32] VITALS: BP 157/99
== END 2017-07-08 21:33 | disposition home or self-care (01) ==
LOC: EDUNIT# 20:26 → ER 20:28
DX: J06.9 Acute upper respiratory infection, unspecified (principal); G47.30 Sleep apnea, unspecified; E78.00 Pure hypercholesterolemia, unspecified; I10 Essential (primary) hypertension; F41.9 Anxiety disorder, unspecified; F43.10 Post-traumatic stress disorder, unspecified; F91.3 Oppositional defiant disorder; G43.909 Migraine, unspecified, not intractable, without status migrainosus; M19.011 Primary osteoarthritis, right shoulder; Z88.0 Allergy status to penicillin; Z88.6 Allergy status to analgesic agent; Z87.891 Personal history of nicotine dependence; Z95.0 Presence of cardiac pacemaker
CPT/HCPCS: 36415; 71046; 85025; 96372

== ENCOUNTER 2018-02-04 13:36 | Emergency (ER) | payer MEDICAID ==
[~2018-02-04] VITALS: Ht 170.2 cm; Wt 122.5 kg
[~2018-02-04 13:36] MED LIST changes: +BENZ100C18 PO; +CEFD300C3 PO; -EPIN0.3A3 IJ; +EPIN0.3P18 IJ; +MTX2.5T
--- OUTSIDE RECORDS SUMMARY | 2018-02-04 13:42 | XMS REPORT | Clinical Summary ---
Author Author [facility] Organization [facility] Address Unknown Phone Unavailable Care Team Providers Care Clay Modeler Name Role Phone Yana Chadwick MD 21 Shreyas Puentes MD 3 Eden Hennessy MD PCP Source Comments Some departments are not documenting in the electronic medical record. If you do not see the information that you expected, contact Release of Information in the Health Information Management department at [phone] for further assistance in locating additional records.[facility] Allergies Comments Active Allergy Reactions Severity Noted Date Adhesive Tape (Rosins) BLISTERS High 11/23/2017 Aspirin RASH Medium 09/30/2016 Penicillins RASH Medium 09/30/2016 Venom-Wasp ANAPHYLAXIS High 09/30/2016 Medications End Date Status Medication Sig Dispensed Refills Start Date Active ALPRAZolam (XANAX) 1 mg TAKE ONE 0 tablet TABLET BY 7 MOUTH TWICE DAILY FOR ANXIETY Active atorvastatin (LIPITOR) 20 TAKE ONE 0 05/17/201 mg tablet TABLET BY 7 MOUTH ONCE DAILY Active HYDROcodone/acetaminophen TAKE 1 TABLET 0 (NORCO) 7.5/325 mg tablet BY MOUTH FOUR 7 TIMES DAILY Active metoprolol XL (TOPROL XL) TAKE ONE 0 200 mg extended release TABLET BY 7 tablet MOUTH TWICE DAILY Active ondansetron (ZOFRAN ODT) DISSOLVE ONE 0 4 mg rapid dissolve TABLET BY 7 tablet MOUTH EVERY 8 HOURS NEEDED Active topiramate (TOPAMAX) 100 TAKE ONE 1 08/07/201 mg tablet TABLET BY 7 MOUTH TWICE DAILY Active EPINEPHrine(+) (EPIPEN) 1 Inject 0.3 mg 0 mg/mL injection pen into the (2-Pack) muscle once as needed. Inject 0.3 mg (1 Pen) into thigh if needed for anaphylactic reaction. May repeat in 5-15 minutes if needed. Active diltiazem CD (CARDIZEM Take 300 mg 0 CD) 300 mg capsule by mouth every morning. Active pregabalin (LYRICA) 150 Take 1 60 capsule 3 08/25/201 mg capsule capsule by 8 mouth twice daily. Active losartan(+) (COZAAR) 100 Take 1 tablet 90 tablet 3 09/03/201 mg tablet by mouth 8 daily. Active folic acid (FOLVITE) 1 mg Take 1 mg 130 tablet 3 tablet daily, except 8 for the day Methotrexate is taken, hold 12 hours and increase to 5 mg once per week Active nitroglycerin (NITROSTAT) Place 0.4 mg 0 0.4 mg tablet under tongue every 5 minutes as needed for Chest Pain. Max of 3 tablets, call 911. Active methotrexate sodium Take six 24 tablet 0 (RHEUMATREX) 2.5 mg tablets by 8 tablet mouth every 7 days. 02/04/2018 Discontinued methotrexate sodium Take six 24 tablet 0 (RHEUMATREX) 2.5 mg tablets by 8 tabletIndications: mouth every 7 Sarcoidosis days. Active Problems Problem Noted Date Class 3 obesity in adult 08/06/2017 Coxsackie viruses 04/28/2017 Sarcoma 04/28/2017 Tobacco abuse 04/28/2017 Myocarditis 02/26/2017 NSVT (nonsustained ventricular tachycardia) 02/26/2017 Cardiac device in situ 01/14/2017 Sinus node dysfunction 11/02/2016 Overview: Dr. Valdez S/p PPM implant- Advisa 02/20/16 PSVT (paroxysmal supraventricular tachycardia) 11/02/2016 Hypertension 11/02/2016 MELI (obstructive sleep apnea) 11/02/2016 History of lipoma 09/30/2016 Pain of left thigh 09/30/2016 Pain of left lower leg 09/30/2016 Encounters Care Team Description Date Type Specialty Leander Tovar MD 02/04/2018 Refill Pulmonology Cindy Swan RN 02/03/2018 Telephone Cardiology [facility] Labs Only (Historical labs reviewed by PCP) 01/26/2018 Documentation Cardiology Leander Tovar MD General Question 01/07/2018 Telephone Pulmonology Leander Tovar MD Other 01/07/2018 Telephone Pulmonology Leander Tovar MD 12/29/2017 Refill Pulmonology Chapin Soto MD 12/28/2017 Hospital Radiology Encounter Chapin Soto MD Complex regional pain syndrome type 1 of left lower extremity (Primary Dx) 12/28/2017 Procedure visit Anesthesia Pain Leander Tovar MD Medication Follow-up 12/01/2017 Telephone Pulmonology Chapin Soto MD 11/23/2017 Hospital Radiology Encounter Chapin Soto MD Complex regional pain syndrome type 1 of left lower extremity 11/23/2017 Procedure visit Anesthesia Pain Chapin Soto MD Complex regional pain syndrome type 1 of left lower extremity (Primary Dx) 11/23/2017 Orders Only Anesthesia Pain Leander Tovar MD Medication Refill 11/23/2017 Telephone Pulmonology Eden Hennessy MD Essential hypertension (Primary Dx) 11/22/2017 Orders Only Pulmonology [facility] Labs Only (CMP and CBC with Diff. reviewed by PCP) 11/19/2017 Documentation Cardiology from Last 3 Months Family History Medical History Relation Name Comments Diabetes Brother Hypertension Brother Blood Clots Father Coronary Artery Disease Father Diabetes Father Heart Attack Father Heart Disease Father High Cholesterol Father Hypertension Father Kidney Disease Father Heart Disease Maternal Aunt Heart Disease Maternal Aunt Heart Attack Maternal Grandfather Alzheimer's Maternal Grandmother Heart Attack Maternal Uncle Heart Disease Maternal Uncle Anxiety Mother Arthritis-rheumatoid Mother Blood Clots Mother Cancer Mother Coronary Artery Disease Mother Diabetes Mother Heart Attack Mother Heart Disease Mother High Cholesterol Mother Hypertension Mother Sleep disorder Mother sleep apnea Thyroid Disease Mother Diabetes Paternal Grandfather Dialysis Paternal Grandfather Kidney Failure Paternal Grandfather Unknown to Patient Paternal Grandmother Cancer Paternal bone Uncle Diabetes Paternal Uncle Kidney Failure Paternal Uncle Diabetes Paternal Uncle Heart problem Paternal Uncle Heart Disease Sister Relation Name Status Comments Brother Alive Father (Age 61) Maternal Aunt Alive Maternal Aunt (Age mid 70s) Maternal Grandfather Maternal Grandmother (Age late 60) Maternal Uncle (Age 40) Mother Alive Paternal Grandfather lost both kidneys Paternal Grandmother Paternal Uncle (Age 60) Paternal Uncle (Age 60s) Sister Alive Social History Date Tobacco Use Types Packs/Day Years Used Quit: 10/18/2016 Current Every Day Smoker Cigarettes 0.25 Smokeless Tobacco: Never Used Alcohol Use Drinks/Week oz/Week Comments No Sex Assigned at Date Recorded Not on file Industry Job Start Date Occupation Not on file Not on file Not on file Travel End Travel History Travel Start No recent travel history available. Last Filed Vital Signs Time Taken Vital Sign Reading 12/28/2017 10:30 AM PAPER PATTERN FOLDER Blood Pressure 118/62 12/28/2017 10:30 AM PAPER PATTERN FOLDER Pulse 75 12/28/2017 10:26 AM PAPER PATTERN FOLDER Temperature 36.8 C (98.2 F) 12/28/2017 9:51 AM PAPER PATTERN FOLDER Respiratory Rate 16 12/28/2017 10:30 AM PAPER PATTERN FOLDER Oxygen Saturation 100% - Inhaled Oxygen - Concentration 12/28/2017 9:51 AM PAPER PATTERN FOLDER Weight 123.8 kg (273 lb) 12/28/2017 9:51 AM PAPER PATTERN FOLDER Height 170.2 cm (5' 7") 12/28/2017 9:51 AM PAPER PATTERN FOLDER Body Mass Index 42.76 Plan of Treatment Health Maintenance Due Date Last Done Comments PHYSICAL (COMPREHENSIVE) 1977 EXAM HIV SCREENING 1985 DTAP/TDAP VACCINES ( - 1988 Tdap) INFLUENZA VACCINE 09/08/2017 Implants Device Identifier Shelf Expiration Date Model / Serial / Lot Implanted Type Area Manufactur er Pacemaker Pacemaker [id number] / [id number] / Medtronic-02/20/2016 Implanted: Qty: 1 on 02/20/2016 by Yumiko Pierre MD Procedures Comments Procedure Name Priority Date/Time Associated Diagnosis CBC Routine 01/21/2018 COMPREHENSIVE METABOLIC Routine 01/21/2018 PANEL [place] INJECTION ANES Routine 12/28/2017 Complex regional pain LMBR/THRC PARAVERTBRL 10:30 AM PAPER PATTERN FOLDER syndrome type 1 of left SYMPATHETIC lower extremity FLUORO GUIDANCE FOR SPINE Routine 12/28/2017 Pain INJ RAD 10:21 AM PAPER PATTERN FOLDER FLUORO GUIDANCE FOR SPINE Routine 11/23/2017 Pain INJ RAD 9:51 AM CDT [place] INJECTION ANES Routine 11/23/2017 Complex regional pain LMBR/THRC PARAVERTBRL 9:45 AM CDT syndrome type 1 of left SYMPATHETIC lower extremity CBC AND DIFF Routine 11/18/2017 COMPREHENSIVE METABOLIC Routine 11/18/2017 PANEL CBC AND DIFF Routine 11/17/2017 COMPREHENSIVE METABOLIC Routine 11/17/2017 PANEL from Last 3 Months Results * CBC (01/21/2018) White Blood Cells 7.5 OTHER OUTSIDE LAB RBC 5.34 OTHER OUTSIDE LAB Hemoglobin 16.6 OTHER OUTSIDE LAB Hematocrit 48.8 OTHER OUTSIDE LAB MCV OTHER OUTSIDE LAB MCH OTHER OUTSIDE LAB MCHC OTHER OUTSIDE LAB Platelet Count 167 OTHER OUTSIDE LAB MPV OTHER OUTSIDE LAB RDW OTHER OUTSIDE LAB Specimen Blood - Blood Narrative Performed At Performing Organization Address City/State/Zipcode Phone Number OTHER OUTSIDE LAB * COMPREHENSIVE METABOLIC PANEL (01/21/2018) Only the most recent of 3 results within the time period is included. Sodium 140 OTHER OUTSIDE LAB Potassium 4.2 OTHER OUTSIDE LAB Chloride 102 OTHER OUTSIDE LAB CO2 29 OTHER OUTSIDE LAB Blood Urea Nitrogen 14 OTHER OUTSIDE LAB Creatinine 1.10 OTHER OUTSIDE LAB Glucose 124 (H) 65 - 99 OTHER OUTSIDE LAB Calcium 10.0 OTHER OUTSIDE LAB Total Protein 7.3 OTHER OUTSIDE LAB Total Bilirubin 1.0 OTHER OUTSIDE LAB Albumin 4.3 OTHER OUTSIDE LAB Alk Phosphatase 95 OTHER OUTSIDE LAB AST (SGOT) 31 OTHER OUTSIDE LAB ALT (SGPT) 31 OTHER OUTSIDE LAB eGFR Non 80 OTHER OUTSIDE LAB eGFR 92 OTHER OUTSIDE LAB Anion Gap OTHER OUTSIDE LAB Specimen Blood - Blood Narrative Performed At Performing Organization Address City/State/Zipcode Phone Number OTHER OUTSIDE LAB * [facility] (12/28/2017 10:30 AM PAPER PATTERN FOLDER) Narrative Performed At Chapin Soto MD 01/06/20186:00 PM OTHER OUTSIDE LAB Nerve Block Nerve: lumbar sympathetic Laterality: left Consent: Consent obtained: verbal and written Consent given by: patient Alternatives discussed: alternative treatment [place] Protocol: Relevant documents: relevant documents present and verified Test results: test results available and properly labeled Imaging studies: imaging studies available Required items: required blood products, implants, devices, and special equipment available Site marked: the operative site was marked Time out: Immediately prior to procedure a "time out" was called to verify the correct patient, procedure, equipment, manager sales support and site/side marked as required Procedures Details: Indications: Pain Relief Prep: 2% chlorhexidine Patient position: prone Needle size: 25 G Guidance: fluoroscopy Medications administered: 8 mL bupivacaine PF 0.25 % Outcome: Pain improved Performing Organization Address City/[facility] Phone Number OTHER OUT[facility]IDE LAB * FLUORO GUIDANCE FOR SPINE INJ RAD (12/28/2017 10:21 AM PAPER PATTERN FOLDER) Only the most recent of 2 results within the time period is included. Narrative Performed At This order has been auto finalized and does not contain a result. [facility] Performing Organization Address [facility] Phone Number [facility] * [facility]ERVE [facility] (11/23/2017 9:45 AM CDT) Narrative Performed At Chapin Soto MD 11/24/20178:28 AM OTHER OUTSIDE LAB Nerve Block Nerve: lumbar sympathetic Laterality: left Consent: Consent obtained: verbal and written Consent given by: patient Alternatives discussed: alternative treatment [place] Protocol: Relevant documents: relevant documents present and verified Test results: test results available and properly labeled Imaging studies: imaging studies available Required items: required blood products, implants, devices, and special equipment available Site marked: the operative site was marked Patient identity confirmed: Patient identify confirmed verbally with patient. Time out: Immediately prior to procedure a "time out" was called to verify the correct patient, procedure, equipment, manager sales support and site/side marked as required Procedures Details: Prep: 2% chlorhexidine Patient position: prone Guidance: fluoroscopy Medications administered: 8 mL bupivacaine PF 0.25 % Outcome: Pain improved Performing Organization Address City/[facility] Phone Number OTHER OUTSIDE LAB * CBC AND DIFF (11/18/2017) Only the most recent of 2 results within the time period is included. White Blood Cells 9.1 OTHER OUTSIDE LAB RBC 4.91 OTHER OUTSIDE LAB Hemoglobin 14.9 OTHER OUTSIDE LAB Hematocrit 42.8 OTHER OUTSIDE LAB MCV 87.2 OTHER OUTSIDE LAB MCH 30.3 OTHER OUTSIDE LAB MCHC 34.8 OTHER OUTSIDE LAB Platelet Count 221 OTHER OUTSIDE LAB MPV 12.1 OTHER OUTSIDE LAB RDW 14.4 OTHER OUTSIDE LAB Neutrophils 74.5 OTHER OUTSIDE LAB Absolute Neutrophil Count 6,780 OTHER OUTSIDE LAB Lymphocytes 17.3 OTHER OUTSIDE LAB Absolute Lymph Count 1,574 OTHER OUTSIDE LAB Monocytes 5.5 OTHER OUTSIDE LAB Absolute Monocyte Count 501 OTHER OUTSIDE LAB Eosinophil 0.9 OTHER OUTSIDE LAB Absolute Eosinophil Count 82 OTHER OUTSIDE LAB Basophils 0.9 OTHER OUTSIDE LAB Absolute Basophil Count 82 OTHER OUTSIDE LAB Atypical Lym OTHER OUTSIDE LAB Metamyelocyte OTHER OUTSIDE LAB Myelocyte OTHER OUTSIDE LAB Promyelocyte OTHER OUTSIDE LAB Blast OTHER OUTSIDE LAB RBC Morph OTHER OUTSIDE LAB WBC Morphology OTHER OUTSIDE LAB Specimen Blood - Blood Narrative Performed At Performing Organization Address City/State/Zipcode Phone Number OTHER OUTSIDE LAB from Last 3 Months Insurance Payer Benefit Subscriber ID Type Phone Address Plan / Group [employer] [place] [employer] xxxxxxxxxxx Medicaid [place] (Home) [place] [address] Advance Directives Patient has advance care planning documents on file. For more information, please contact: [facility] [address] [place] [address]
--- OUTSIDE RECORDS SUMMARY | 2018-02-04 13:43 | XMS REPORT | Encounter Summary ---
Author Author [facility] Organization [facility] Address Unknown Phone Unavailable Care Team Providers Care Scada Technician Name Role Phone Yana Chadwick MD 21 Shreyas Puentes MD 3 Eden Hennessy MD PCP Encounter Details Care Team Description Date Type Department Chapin Soto MD [address] [place], [place] [id number] 11/23/2017 Hospital [facility] Encounter [place] [facility] [address] [place] [address] Social History Date Tobacco Use Types Packs/Day Years Used Quit: 10/18/2016 Current Every Day Smoker Cigarettes 0.25 Smokeless Tobacco: Never Used Alcohol Use Drinks/Week oz/Week Comments No Sex Assigned at Date Recorded Not on file Industry Job Start Date Occupation Not on file Not on file Not on file Travel End Travel History Travel Start No recent travel history available. as of this encounter Functional Status Date of Assessment Functional Status Response 11/03/2017 Does the patient have a hearing impairment: No 11/03/2017 Does the patient have a visual impairment: No 11/03/2017 Does the patient have impaired ambulation: No 11/03/2017 Does the patient have an activity of daily living No (ADL) impairment: 11/03/2017 Does the patient have an instrumental activity of No daily living (IADL) impairment: Date of Assessment Cognitive Status Response 11/03/2017 Does the patient have a cognitive impairment: No as of this encounter Medications at Time of Discharge Start Date End Date Medication Sig Dispensed Refills 09/11/2016 ALPRAZolam (XANAX) 1 mg TAKE ONE 0 tablet TABLET BY MOUTH TWICE DAILY FOR ANXIETY 06/24/2016 atorvastatin (LIPITOR) 20 TAKE ONE 0 mg tablet TABLET BY MOUTH ONCE DAILY diltiazem CD (CARDIZEM Take 300 mg 0 CD) 300 mg capsule by mouth every morning. EPINEPHrine(+) (EPIPEN) 1 Inject 0.3 mg 0 mg/mL injection pen into the (2-Pack) muscle once as needed. Inject 0.3 mg (1 Pen) into thigh if needed for anaphylactic reaction. May repeat in 5-15 minutes if needed. 10/01/2017 folic acid (FOLVITE) 1 mg Take 1 mg 130 tablet 3 tablet daily, except for the day Methotrexate is taken, hold 12 hours and increase to 5 mg once per week 09/11/2016 HYDROcodone/acetaminophen TAKE 1 TABLET 0 (NORCO) 7.5/325 mg tablet BY MOUTH FOUR TIMES DAILY 09/03/2017 losartan(+) (COZAAR) 100 Take 1 tablet 90 tablet 3 mg tablet by mouth daily. 09/10/2016 metoprolol XL (TOPROL XL) TAKE ONE 0 200 mg extended release TABLET BY tablet MOUTH TWICE DAILY nitroglycerin (NITROSTAT) Place 0.4 mg 0 0.4 mg tablet under tongue every 5 minutes as needed for Chest Pain. Max of 3 tablets, call 911. 09/21/2016 ondansetron (ZOFRAN ODT) DISSOLVE ONE 0 4 mg rapid dissolve TABLET BY tablet MOUTH EVERY 8 HOURS NEEDED 08/25/2017 pregabalin (LYRICA) 150 Take 1 60 capsule 3 mg capsule capsule by mouth twice daily. 08/07/2016 topiramate (TOPAMAX) 100 TAKE ONE 1 mg tablet TABLET BY MOUTH TWICE DAILY 11/23/2017 12/29/2017 methotrexate sodium Take six 24 tablet 0 (RHEUMATREX) 2.5 mg tablets by tabletIndications: mouth every 7 Sarcoidosis days. as of this encounter Plan of Treatment Not on fileas of this encounter Procedures Comments Procedure Name Priority Date/Time Associated Diagnosis FLUORO GUIDANCE FOR SPINE Routine 11/23/2017 Pain INJ RAD 9:51 AM CDT in this encounter Results * FLUORO GUIDANCE FOR SPINE INJ RAD (11/23/2017 9:51 AM CDT) Narrative Performed At This order has been auto finalized and does not contain a result. CYRUS MCWILLIAMS Performing Organization Address City/State/Zipcode Phone Number CYRUS MCWILLIAMS in this encounter Visit Diagnoses Diagnosis Pain Generalized pain in this encounter
--- OUTSIDE RECORDS SUMMARY | 2018-02-04 13:43 | XMS REPORT | Encounter Summary ---
Author Author [facility] Organization [facility] Address Unknown Phone Unavailable Care Team Providers Care Table Filler Name Role Phone Yana Chadwick MD 21 Shreyas Puentes MD 3 Eden Hennessy MD PCP Encounter Details Care Team Description Date Type Department Cindy Swan RN 02/03/2018 Telephone Cardiovascular Medicine [facility] [place] [address] Social History Date Tobacco Use Types Packs/Day [...] Status Date of Assessment Functional Status Response 12/28/2017 Does the patient have a hearing impairment: No 12/28/2017 Does the patient have a visual impairment: Yes 12/28/2017 Does the patient have impaired ambulation: No 11/03/2017 Does the patient have an activity of daily living No (ADL) impairment: 11/03/2017 Does the patient have an instrumental activity of No daily living (IADL) impairment: Date of Assessment Cognitive Status Response 12/28/2017 Does the patient have a cognitive impairment: No as of this encounter Miscellaneous Notes * Telephone Encounter - Cindy Swan RN - 02/03/2018 9:38 AM GEAR TECHNICIAN received call from MIKI yesterday, unsure who called. appears it was CVM, sent flag to our schedulers to c/b TECHNICIAN * Telephone Encounter - Cindy Swan RN - 02/03/2018 9:37 AM GEAR TECHNICIAN ----- Message from Cherry Fabian LPN sent at 02/03/2018 9:04 AM GEAR TECHNICIAN ----- Regarding: MPE- call VM from patient on triage line. He would like a call back. TECHNICIAN in this encounter Plan of Treatment Not on fileas of this encounter Visit Diagnoses Not on filein this encounter
--- OUTSIDE RECORDS SUMMARY | 2018-02-04 13:43 | XMS REPORT | Encounter Summary ---
Author Author [facility] Organization [facility] Address Unknown Phone Unavailable Care Team Providers Care Security Screener Name Role Phone Yana Chadwick MD 21 Shreyas Puentes MD 3 Eden Hennessy MD PCP Reason for Visit * Reason Comments Other Encounter Details Care Team Description Date Type Department Leander Tovar MD [address] [facility] [address] [place] [address] Other 01/07/2018 Telephone [facility] Physicians - Internal Medicine [facility] Level 5[address] [place] [address] Social History Date Tobacco Use Types Packs/Day [...] encounter Miscellaneous Notes * Telephone Encounter - Liane West RN - 01/07/2018 9:40 AM SHEEP OR CALF GRADER Received two voicemails from Mr. Velásquez who requested call back. [facility] for patient. Liane West RN P OR CALF GRADER in this encounter Plan of Treatment Not on fileas of this encounter Visit Diagnoses Not on filein this encounter
--- OUTSIDE RECORDS SUMMARY | 2018-02-04 13:43 | XMS REPORT | Encounter Summary ---
Author Author [facility] Organization [facility] Address Unknown Phone Unavailable Care Team Providers Care Document Analyst Name Role Phone Yana Chadwick MD 21 Shreyas Puentes MD 3 Eden Hennessy MD PCP Reason for Visit * Reason Comments General Question Encounter Details Care Team Description Date Type Department Leander Tovar MD [address] [facility] [address] [place] [address] General Question 01/07/2018 Telephone [facility] Physicians - Internal Medicine [facility] [address] [place] [address] Social History Date Tobacco Use [...] encounter Miscellaneous Notes * Telephone Encounter - Shama Gallardo LPN - 01/07/2018 9:40 AM LIGHT FIXTURE SERVICER RVM from patient asking about Methotrexate refill. Attempted to call patient back to get more information. No answer left message to call back. Shama Gallardo LPN T FIXTURE SERVICER in this encounter Plan of Treatment Not on fileas of this encounter Visit Diagnoses Not on filein this encounter
--- OUTSIDE RECORDS SUMMARY | 2018-02-04 13:43 | XMS REPORT | Encounter Summary ---
Author Author [facility] Organization [facility] Address Unknown Phone Unavailable Care Team Providers Care Computer Programmer Analyst Name Role Phone Yana Chadwick MD 21 Shreyas Puentes MD 3 Eden Hennessy MD PCP Reason for Visit * Reason Comments Medication Refill Encounter Details Care Team Description Date Type Department Leander Tovar MD [address] [facility] [address] [place] [address] Medication Refill 11/23/2017 Telephone [facility] Physicians - Internal Medicine [facility] Level [address] [place] [address] Social History Date Tobacco Use [...] encounter Miscellaneous Notes * Telephone Encounter - Beto Reynaga RN - 11/23/2017 2:32 PM CDT 11/22/17 Pt lvm stating he had labs drawn and wanting to make sure we received them. Also , needing MTX refilled and would like to discuss a couple things with the nurse 11/23/17 Pt left another message requesting MTX refill. Called and spoke to pt. Informed him that labs look fine and we will get refill sent in for him. Pt states that he is having issues with his mouth. States it is really sore and hurts on his tongue and roof of mouth. No visible open sores or white coating. He did mention he has been having sore throat. He is due to take his next dose of MTX this Wednesday. Instructed to hold that dose. RN will discuss with Dr. Tovar. Recommended seeing PCP or going to walk in clinic at [facility] to be evaluated or get a swab of his mouth. Pt verbalized understanding. RN will call him back once dicussed with Dr. Tovar. Discussed with Dr. Tovar. Orders to hold MTX and get mouth evaluated. And then notify our office with findings. Pt verbalized he will do that. 11/24/17 Pt lvm stating he did have mouth evaluated. Negative for strept. Reported the throat and tongue is red and he was prescribed nystatin - taking 4 x's a day. Returned pt call. Appreciative of the update. Plans are to still hold MTX and follow up next Wednesday on symptoms. Otherwise, if mouth is not improving or worsening by Wednesday encouraged to notify the office. Pt verbalized understanding. in this encounter Plan of Treatment Not on fileas of this encounter Visit Diagnoses Not on filein this encounter
--- OUTSIDE RECORDS SUMMARY | 2018-02-04 13:43 | XMS REPORT | Encounter Summary ---
Author Author [facility] Organization [facility] Address Unknown Phone Unavailable Care Team Providers Care Kapok And Cotton Machine Operator Name Role Phone Yana Chadwick MD 21 Shreyas Puentes MD 3 Eden Hennessy MD PCP Reason for Visit * Reason Comments Labs Only Historical labs reviewed by PCP Encounter Details Care Team Description Date Type Department [facility] Labs Only (Historical labs reviewed by PCP) 01/26/2018 Documentation Cardiovascular Medicine [facility] [place] [address] Social History Date Tobacco Use [...] cognitive impairment: No as of this encounter Plan of Treatment Not on fileas of this encounter Procedures Comments Procedure Name Priority Date/Time Associated Diagnosis CBC Routine 01/21/2018 COMPREHENSIVE METABOLIC Routine 01/21/2018 PANEL in this encounter Results * CBC (01/21/2018) White Blood Cells [...] OUTSIDE LAB * COMPREHENSIVE METABOLIC PANEL (01/21/2018) Sodium 140 OTHER OUTSIDE LAB Potassium 4.2 [...] Address City/State/Zipcode Phone Number OTHER OUTSIDE LAB in this encounter Visit Diagnoses Not on filein this encounter
--- OUTSIDE RECORDS SUMMARY | 2018-02-04 13:43 | XMS REPORT | Encounter Summary ---
Author Author [facility] Organization [facility] Address Unknown Phone Unavailable Care Team Providers Care Racing Mechanic Name Role Phone Yana Chadwick MD 21 Shreyas Puenets MD 3 Eden Hennessy MD PCP Reason for Visit * Reason Comments Medication Follow-up Encounter Details Care Team Description Date Type Department Leander Tovar MD [address] [facility] [address] [place] [address] Medication Follow-up 12/01/2017 Telephone [facility] Physicians - Internal Medicine [facility] [address] [place] [address] Social History Date Tobacco Use [...] Telephone Encounter - Beto Reynaga RN - 12/01/2017 3:38 PM CDT Pt lvm wanting to know if he should restart MTX. Called and spoke to pt. He states the nystatin really helped and his mouth has much improved. He did mention that he had to have a tooth pulled a couple weeks ago and had to be seen by an civil division deputy sheriff. Notified dr. Tovar. Informed pt that as long as he feels his mouth is back to baseline and has no signs of infection he can resume MTX this Wednesday. Pt did mention that he has been experiencing heart palpations the past few days as well as elevated blood pressure. Mentioned Dr. Altamirano had adjusted his blood pressure medication, but it is not under control now. Encouraged pt to reach out to Dr. Altamirano's office just to let them know. Also mentioned, that since he has been off MTX for over a week he could be having a little flare and will lessen with restarting MTX. However, encouraged pt to notify our office if persist. Pt verbalized understanding and appreciative of the return call. in this encounter Plan of Treatment Not on fileas of this encounter Visit Diagnoses Not on filein this encounter
--- OUTSIDE RECORDS SUMMARY | 2018-02-04 13:43 | XMS REPORT | Encounter Summary ---
Author Author [facility] Organization [facility] Address Unknown Phone Unavailable Care Team Providers Care Counselor Dormitory Name Role Phone Yana Chadwick MD 21 Shreyas Puentes MD 3 Eden Hennessy MD PCP Reason for Visit * Reason Comments Medication Refill Encounter Details Care Team Description Date Type Department Leander Tovar MD [address] [facility] [address] [place] [address] 02/04/2018 Refill [facility] Physicians - Internal Medicine [facility] [address] [place] [address] Social History Date Tobacco Use [...] Telephone Encounter - Liane West RN - 02/04/2018 10:24 AM METAL TRADES INSTRUCTOR Received refill request for methotrexate from pharmacy. Pt had recent office visit with Dr. Tovar on 10/26/17 and has noted f/u appt on 02/23/18. Per documentation pt to continue methotrexate 15 mg weekly, recent lab testing noted. Okay to refill per protocol. Liane West, RN L TRADES INSTRUCTOR in this encounter Plan of Treatment Not on fileas of this encounter Visit Diagnoses Not on filein this encounter
--- OUTSIDE RECORDS SUMMARY | 2018-02-04 13:43 | XMS REPORT | Encounter Summary ---
Author Author [facility] Organization [facility] Address Unknown Phone Unavailable Care Team Providers Care Tobacco Wrapping Machine Tender Name Role Phone Yana Chadwick MD 21 Shreyas Puentes MD 3 Eden Hennessy MD PCP Reason for Referral * Pain Authorization (Routine) Referred By Contact Referred To Contact Status Reason Specialty Diagnoses / Procedures Chapin Soto MD [address] [place] [address] Bhg Spn Anes Pain Cl Josep Wynne MD [facility] [address] [place] [address] Closed Anesthesia Pain Diagnoses Complex regional pain syndrome type 1 of left lower extremity P rocedures KU AMB NERVE BLOCK PROC Encounter Details Care Team Description Date Type Department Chapin Soto MD [address] [place] [address] [phone] Complex regional pain syndrome type 1 of left lower extremity (Primary Dx) 11/23/2017 Orders Only [facility] [address] [place] [address] Social History Date Tobacco Use Types Packs/Day [...] as of this encounter Plan of Treatment Order Schedule Name Priority Associated Diagnoses Ordered: 11/24/2017 KU AMB NERVE BLOCK PROC Routine Complex regional pain syndrome type 1 of left lower extremity as of this encounter Visit Diagnoses Diagnosis Complex regional pain syndrome type 1 of left lower extremity - Primary in this encounter
--- OUTSIDE RECORDS SUMMARY | 2018-02-04 13:43 | XMS REPORT | Encounter Summary ---
Author Author [facility] Organization [facility] Address Unknown Phone Unavailable Care Team Providers Care Cone Marker Name Role Phone Yana Chadwick MD 21 Shreyas Puentes MD 3 Eden Hennessy MD PCP Reason for Visit * Reason Comments Medication Refill Encounter Details Care Team Description Date Type Department Leander Tovar MD [address] [facility] [address] [place] [address] 12/29/2017 Refill [facility] Physicians - Internal Medicine [facility] [address] [place] [address] Social History Date Tobacco Use [...] Telephone Encounter - Liane West RN - 12/29/2017 4:18 PM WINDOW FRAMER Received refill request from Mr. Velásquez requesting refill of his methotrexate. Per Dr. Tovar, ok to refill for one month until lab work is reviewed. Refill sent as requested. Liane West RN OW FRAMER in this encounter Plan of Treatment Not on fileas of this encounter Visit Diagnoses Not on filein this encounter
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
--- OUTSIDE RECORDS SUMMARY | 2018-02-04 13:43 | XMS REPORT | Encounter Summary ---
Author Author [facility] Organization [facility] Address Unknown Phone Unavailable Care Team Providers Care Knot Picker Cloth Name Role Phone Yana Chadwick MD 21 Shreyas Puentes MD 3 Eden Hennessy MD PCP Encounter Details Care Team Description Date Type Department Chapin Soto MD [address] [place], [place] [id number] 12/28/2017 [facility] Encounter [facility] [address] [place] [address] Social History Date Tobacco Use Types Packs/Day [...] Associated Diagnosis FLUORO GUIDANCE FOR SPINE Routine 12/28/2017 Pain INJ RAD 10:21 AM FILLER SHREDDER MACHINE in this encounter Results * [facility]O GUIDANCE FOR SPINE INJ RAD (12/28/2017 10:21 AM FILLER SHREDDER MACHINE) Narrative Performed At This order has been auto finalized and does not contain a result. CYRUS MCWILLIAMS Performing Organization Address City/State/Zipcode Phone Number CYRUS MCWILLIAMS in this encounter Visit Diagnoses Diagnosis Pain Generalized pain in this encounter
--- OUTSIDE RECORDS SUMMARY | 2018-02-04 13:44 | XMS REPORT | Encounter Summary ---
Author Author [facility] Organization [facility] Address Unknown Phone Unavailable Care Team Providers Care Strategy Lead Name Role Phone Yana Chadwick MD 21 Shreyas Puentes MD 3 Eden Hennessy MD PCP Reason for Visit * Reason Comments Labs Only CMP and CBC with Diff. reviewed by PCP Encounter Details Care Team Description Date Type Department [facility] Labs Only (CMP and CBC with Diff. reviewed by PCP) 11/19/2017 Documentation Cardiovascular Medicine [facility] [place] [address] Social History Date Tobacco Use Types Packs/Day Years Used Quit: 10/18/2016 Former Smoker 0.25 Smokeless Tobacco: Never Used Alcohol Use [...] Procedure Name Priority Date/Time Associated Diagnosis CBC AND DIFF Routine 11/18/2017 COMPREHENSIVE METABOLIC Routine 11/18/2017 PANEL in this encounter Results * CBC AND DIFF (11/18/2017) White Blood Cells 9.1 OTHER OUTSIDE LAB [...] OTHER OUTSIDE LAB * COMPREHENSIVE METABOLIC PANEL (11/18/2017) Sodium 139 OTHER OUTSIDE LAB Potassium 4.0 OTHER OUTSIDE LAB Chloride 109 OTHER OUTSIDE LAB CO2 24 OTHER OUTSIDE LAB Blood Urea Nitrogen 16 OTHER OUTSIDE LAB Creatinine 1.11 OTHER OUTSIDE LAB Glucose 97 OTHER OUTSIDE LAB Calcium 9.1 OTHER OUTSIDE LAB Total Protein 6.8 OTHER OUTSIDE LAB Total Bilirubin 0.6 OTHER OUTSIDE LAB Albumin 3.8 OTHER OUTSIDE LAB Alk Phosphatase 84 OTHER OUTSIDE LAB AST (SGOT) 28 OTHER OUTSIDE LAB ALT (SGPT) 33 OTHER OUTSIDE LAB eGFR Non 79 OTHER OUTSIDE LAB eGFR 91 OTHER OUTSIDE LAB Anion Gap OTHER OUTSIDE LAB Specimen Blood - Blood Narrative Performed At Performing Organization Address City/State/Zipcode Phone Number OTHER OUTSIDE LAB in this encounter Visit Diagnoses Not on filein this encounter
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
--- OUTSIDE RECORDS SUMMARY | 2018-02-04 13:44 | XMS REPORT | Encounter Summary ---
Author Author [facility] Organization [facility] Address Unknown Phone Unavailable Care Team Providers Care Hydramatic Specialist Name Role Phone Yana Chadwick MD 21 Shreyas Puentes MD 3 Eden Hennessy MD PCP Encounter Details Care Team Description Date Type Department Eden Hennessy MD [address] [place] [address] Essential hypertension (Primary Dx) 11/22/2017 Orders Only [facility] Physicians - Internal Medicine [facility] Level [address]A [address] [place] [address] Social History Date Tobacco Use [...] Date/Time Associated Diagnosis CBC AND DIFF Routine 11/17/2017 COMPREHENSIVE METABOLIC Routine 11/17/2017 PANEL in this encounter Results * CBC AND DIFF (11/17/2017) White Blood Cells 9.1 OTHER OUTSIDE LAB RBC 4.91 OTHER OUTSIDE LAB Hemoglobin 14.9 OTHER OUTSIDE LAB Hematocrit 42.8 OTHER OUTSIDE LAB MCV 87.2 OTHER OUTSIDE LAB MCH 30.3 OTHER OUTSIDE LAB MCHC 34.8 OTHER OUTSIDE LAB Platelet Count 221 OTHER OUTSIDE LAB MPV 12.1 OTHER OUTSIDE LAB RDW OTHER OUTSIDE LAB Neutrophils OTHER OUTSIDE LAB Absolute Neutrophil Count 6,780 OTHER OUTSIDE LAB Lymphocytes OTHER OUTSIDE LAB Absolute Lymph Count 1,574 OTHER OUTSIDE LAB Monocytes OTHER OUTSIDE LAB Absolute Monocyte Count 501 OTHER OUTSIDE LAB Eosinophil OTHER OUTSIDE LAB Absolute Eosinophil Count 82 OTHER OUTSIDE LAB Basophils OTHER OUTSIDE LAB Absolute Basophil Count OTHER OUTSIDE LAB Atypical Lym OTHER OUTSIDE LAB Metamyelocyte OTHER OUTSIDE LAB Myelocyte OTHER OUTSIDE LAB Promyelocyte OTHER OUTSIDE LAB Blast OTHER OUTSIDE LAB RBC Morph OTHER OUTSIDE LAB WBC Morphology OTHER OUTSIDE LAB Specimen Blood - Blood Narrative Performed At Performing Organization Address City/State/Zipcode Phone Number OTHER OUTSIDE LAB * COMPREHENSIVE METABOLIC PANEL (11/17/2017) Sodium 139 OTHER OUTSIDE LAB Potassium 4.0 [...] LAB in this encounter Visit Diagnoses Diagnosis Essential hypertension - Primary Unspecified essential hypertension in this encounter
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
--- OUTSIDE RECORDS SUMMARY | 2018-02-04 13:45 | XMS REPORT ---
Author Author EDUIN Ramos Organization [facility] Address [address] [place] [address] Care Team Providers Care Technical Sales Representatives Name Role Phone EDUIN Ramos Unavailable PROBLEMS Type Condition ICD9-CM Code [id number] Code Onset Dates Condition Status SNOMED Code Problem Environmental allergies Z91.09 Active 469068876 Problem Primary insomnia F51.01 Active 7534415 Problem Arrhythmia as indication for cardiac pacemaker replacement I49.9 Active 85982752 Problem Chronic pain syndrome G89.4 Active 140812596 Problem Sleep apnea, obstructive G47.33 Active 62169768 Problem Migraine without aura and without status migrainosus, not intractable G43.009 Active 431012718 Problem Hyperlipidemia E78.5 Active 28365755 Problem Myocarditis, unspecified chronicity, 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 Active 91942813 Problem Other male erectile dysfunction N52.8 Active 996149250 Problem Morbid (severe) obesity due to excess calories E66.01 Active 909411167 Problem 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 Active 551168431 Problem Body mass index (BMI) of 40.0-44.9 in adult Z68.41 Active 053824612 Problem 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 Active 616032552 Problem Chronic tension headaches G44.229 Active 532351273 Problem Chronic pain G89.29 Active 06385469 Problem HTN (hypertension) I10 Active 18109619 Problem 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 Active 54749834 Problem Mitral valve prolapse I34.1 Active 850079021 Problem Anxiety F41.9 Active 30760501 Problem CAD (coronary artery disease) I25.10 Active 94221735 Problem Major depressive disorder, recurrent, moderate F33.1 Active 01883566 Problem Post-traumatic stress disorder, chronic F43.12 Active 731785128 ALLERGIES No Information ENCOUNTERS Encounter Location Date Diagnosis [facility] [address] [facility] [id number] [place] [address] 55428- 6009 May, [facility] [id number] [place] [address] 52827- 3607 May, [facility] [id number] [place] [address] 67813- 7594 Apr, [facility] [address] 08095- 5499 Apr, [facility] [address] 29279- 3993 Apr, [facility] [address] 81950- 6939 Apr, Left leg pain M79.605 [place] [address] 88272- 8263 13 Apr, 2017 Post-traumatic stress disorder, unspecified F43.10 ; Major depressive disorder, recurrent, moderate F33.1 and Problems related to release from residential Z65.2 [facility] [id number] [place] [address] 82056- 2876 12 Apr, 2017 [facility] [id number] [place] [address] 15173- 8226 12 Apr, 2017 Chronic pain G89.29 ; 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 ; Morbid (severe) obesity due to excess calories E66.01 ; Anxiety F41.9 and BMI 40.0-44.9, adult Z68.41 [facility] [id number] [place] [address] 29986 -4042 10 Apr, 2017 Sore throat J02.9 and BMI 40.0-44.9, adult Z68.41 [facility] [id number] [place] [address] 96245- 0170 02 Apr, 2017 Left leg pain M79.605 [facility] [id number] [place] [address] [id number] Mar, Dental examination Z01.20 [facility] [id number] [place] [address] 08956- 6783 Mar, [facility] [address] 26771 -7474 Mar, Cough R05 ; Viral gastroenteritis A08.4 and BMI 40.0-44.9, adult Z68.41 [place] [address] 45840- 7554 Mar, Left leg pain M79.605 [place] [address] 40418- 7986 Mar, Post-traumatic stress disorder, unspecified F43.10 ; Major depressive disorder, recurrent, moderate F33.1 and Problems related to release from residential Z65.2 [place] [address] 07996- 8399 Feb, Left leg pain M79.605 [place] [address] 00567- 0424 Feb, [place] [address] 97569- 0464 Feb, BMI 40.0-44.9, adult Z68.41 ; Chronic pain syndrome G89.4 ; Migraine without aura and without status migrainosus, not intractable G43.009 ; Mitral valve prolapse I34.1 and 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 [place] [address] 59619- 9973 Feb, Post-traumatic stress disorder, chronic F43.12 ; Anxiety F41.9 ; Problems related to release from residential Z65.2 and BMI 40.0-44.9, adult Z68.41 [place] [address] 24582- 0105 Feb, Post-traumatic stress disorder, unspecified F43.10 ; Major depressive disorder, recurrent, moderate F33.1 and Problems related to release from residential Z65.2 [place] [id number] [place] [address] 15341- 7481 Feb, Left leg pain M79.605 [facility] [id number] [place] [address] 93911- 5386 Jan, Post-traumatic stress disorder, unspecified F43.10 ; Major depressive disorder, recurrent, moderate F33.1 and Problems related to release from residential Z65.2 [facility] [id number] [place] [address] 51044- 4720 Jan, [facility] [id number] [place] [address] 78579- 0944 Jan, [facility] [id number] [place] [address] 41615- 7645 Jan, Anxiety F41.9 [facility] [id number] [place] [address] 89245- 6222 Jan, Left leg pain M79.605 [facility] [id number] [place] [address] 59473- 2658 Dec, Left leg pain M79.605 [facility] [id number] [place] [address] 98043- 0083 Dec, [facility] [id number] [place] [address] 69694- 1508 Dec, Post-traumatic stress disorder, unspecified F43.10 ; Major depressive disorder, recurrent, moderate F33.1 and Problems related to release from residential Z65.2 [facility] [id number] [place] [address] 14829- 6787 Nov, Chronic pain G89.29 and Anxiety F41.9 [facility] [id number] [place] [address] 25726- 0520 24 Nov, 2016 Chronic pain G89.29 and Anxiety F41.9 [facility] [id number] [place] [address] 33215- 4320 16 Nov, 2016 Post-traumatic stress disorder, unspecified F43.10 ; Major depressive disorder, recurrent, moderate F33.1 and Problems related to release from residential Z65.2 [facility] [id number] [place] [address] 07931- 5070 09 Nov, 2016 Other abnormal findings in specimens from other organs, systems and tissues R89.8 ; Other male erectile dysfunction N52.8 ; Body mass index (BMI) of 40.0-44.9 in adult Z68.41 and Morbid (severe) obesity due to excess calories E66.01 [place] [id number] [place] [address] 76917- 3843 02 Nov, 2016 Post-traumatic stress disorder, unspecified F43.10 ; Major depressive disorder, recurrent, moderate F33.1 and Problems related to release from residential Z65.2 [facility] [id number] [place] [address] [id number] 29 Oct, 2016 Dental examination Z01.20 [place] [id number] [place] [address] 46066- 8953 Oct, [place] [id number] [place] [address] 17648- 6027 Oct, Encounter for immunization Z23 [place] [id number] [place] [address] 92064- 7352 Oct, Chronic pain G89.29 ; Anxiety F41.9 ; Arrhythmia as indication for cardiac pacemaker replacement I49.9 and Glaucoma H40.9 [facility] [id number] [place] [address] 36883- 9713 Oct, Anxiety F41.9 ; Post-traumatic stress disorder, chronic F43.12 and Problems related to release from residential Z65.2 [facility] [id number] [place] [address] 50698- 2862 07 Oct, 2016 Post-traumatic stress disorder, unspecified F43.10 ; Major depressive disorder, recurrent, moderate F33.1 and Problems related to release from residential Z65.2 [place] [id number] [address]- 7930 Sep, Chronic pain G89.29 and Anxiety F41.9 [place] [id number] [place] [address] 19385- 4495 Sep, Post-traumatic stress disorder, unspecified F43.10 ; Major depressive disorder, recurrent, moderate F33.1 and Problems related to release from residential Z65.2 [place] [id number] [place] [address] 00147- 7676 Sep, Post-traumatic stress disorder, unspecified F43.10 ; Major depressive disorder, recurrent, moderate F33.1 and Problems related to release from residential Z65.2 [place] [id number] [place] [address] 19319- 9584 Sep, Chronic pain G89.29 [place] [id number] [place] [address] 17906- 7318 Aug, Dental caries, unspecified K02.[id number] [place] [address] 01656- 7449 Aug, Sleep apnea, obstructive G47.33 ; Obesity E66.9 ; Chronic pain G89.29 ; HTN (hypertension) I10 ; Major depressive disorder, recurrent, moderate F33.1 ; Anxiety F41.9 ; Chronic tension headaches G44.229 ; Mitral valve prolapse I34.1 ; Arrhythmia as indication for cardiac pacemaker replacement I49.9 ; Dental caries, unspecified K02.9 ; Primary insomnia F51.01 and Hyperlipidemia E78.[id number] [place] [address] 70895- 9833 Aug, Post-traumatic stress disorder, unspecified F43.10 ; Major depressive disorder, recurrent, moderate F33.1 and Problems related to release from residential Z65.2 [address] [address]- 6344 Aug, Dental examination Z01.20 [facility] [id number] [place] [address] [id number] Aug, Dental examination Z01.20 [place] [id number] [place] [address] 79878- 5629 06 Aug, 2016 Post-traumatic stress disorder, unspecified F43.10 ; Major depressive disorder, recurrent, moderate F33.1 and Problems related to release from residential Z65.2 [place] [id number] [place] [address] 28491- 0923 Aug, Chronic pain G89.29 and Primary insomnia F51.01 [place] [id number] [place] [address] 45004- 7856 Jul, [place] [id number] [place] [address] 52248- 0086 Jul, [place] [id number] [place] [address] 39461- 1984 Jul, Nausea R11.0 [place] [id number] [place] [address] 24650- 3801 Jul, Arrhythmia as indication for cardiac pacemaker replacement I49.9 [place] [id number] [place] [address] 41529- 4111 Jul, Post-traumatic stress disorder, unspecified F43.10 ; Major depressive disorder, recurrent, moderate F33.1 and Problems related to release from residential Z65.2 [place] [id number] [place] [address] 32519- 8888 09 Jul, 2016 Anxiety F41.9 [place] [id number] [place] [address] 45119- 0000 08 Jul, 2016 Chronic pain G89.29 [place] [id number] [place] [address] 88323- 1542 Jul, Sleep apnea, obstructive G47.33 ; Hyperlipidemia E78.5 ; Chronic pain G89.29 ; 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 ; Major depressive disorder, recurrent, moderate F33.1 ; Anxiety F41.9 ; Mitral valve prolapse I34.1 ; Arrhythmia as indication for cardiac pacemaker replacement I49.9 ; Primary insomnia F51.01 ; Bilateral headaches R51 and Environmental allergies Z91.09 [place] [address] 17541- 5651 Jul, Post-traumatic stress disorder, unspecified F43.10 ; Major depressive disorder, recurrent, moderate F33.1 and Problems related to release from residential Z65.2 [place] [address] 81284- 8035 June, Post-traumatic stress disorder, chronic F43.12 ; Anxiety F41.9 ; Problems related to release from residential Z65.2 ; Sleep apnea, obstructive G47.33 and Primary insomnia F51.01 [place] [id number] [place] [address] 02226- 6407 June, [place] [address] 48535- 0153 June, [place] [address] 31708- 4091 June, [place] [address] 56260- 3719 June, Chronic pain G89.29 [place] [id number] [place] [address] 19935- 3756 June, Chronic pain G89.29 [place] [id number] [place] [address] 71789- 8996 June, Lipoma of left lower extremity D17.24 ; Open wound T14.8 and Swelling of left lower extremity M79.[address] 45803- 6366 June, Post-traumatic stress disorder, unspecified F43.10 ; Major depressive disorder, recurrent, moderate F33.1 and Problems related to release from residential Z65.2 [place] [address] 19283- 1784 May, Lipoma of left lower extremity D17.24 ; Major depressive disorder, recurrent, moderate F33.1 ; Sleep apnea, obstructive G47.33 ; Hyperlipidemia E78.5 ; Obesity E66.9 ; HTN (hypertension) I10 ; Glaucoma H40.9 ; CAD (coronary artery disease) I25.10 ; Chronic tension headaches G44.229 ; Chronic pain G89.29 ; Anxiety F41.9 ; Nausea R11.0 and Primary insomnia F51.[address] 31485- 7314 May, [address] 58595- 0927 May, Chronic pain G89.[address] 60256- 9826 May, [address] 40662- 3334 31 Apr, 2016 Post-traumatic stress disorder, unspecified F43.10 ; Major depressive disorder, recurrent, moderate F33.1 and Problems related to release from residential Z65.[address] 97229- 2060 28 Apr, 2016 Primary insomnia F51.01 ; Post-traumatic stress disorder, chronic F43.12 and Problems related to release from residential Z65.2 [place] [id number] [place] [address] 01413- 0254 17 Apr, 2016 Post-traumatic stress disorder, unspecified F43.10 ; Major depressive disorder, recurrent, moderate F33.1 and Problems related to release from residential Z65.[address] 54107- 8730 Apr, [address] 66385- 1107 Apr, Sleep apnea, obstructive G47.33 ; Chronic pain G89.29 ; HTN (hypertension) I10 ; Mitral valve prolapse I34.1 ; Shoulder pain, left M25.512 ; Arrhythmia as indication for cardiac pacemaker replacement I49.9 ; Glaucoma H40.9 ; Bilateral headaches R51 ; Environmental allergies Z91.09 ; Primary insomnia F51.01 and Nausea R11.0 [place] [id number] [address]- 1396 Apr, [place] [id number] [place] [address] 22318- 0741 Apr, [place] [id number] [place] [address] 57544- 1451 Apr, Post-traumatic stress disorder, unspecified F43.10 ; Major depressive disorder, recurrent, moderate F33.1 and Problems related to release from residential Z65.2 [place] [id number] [place] [address] 00490- 9118 Apr, HTN (hypertension) I10 [place] [id number] [place] [address] 47244- 0214 Apr, HTN (hypertension) I10 [place] [id number] [place] [address] 43129- 0114 14 Mar, 2016 Chronic pain G89.29 ; Primary insomnia F51.01 and Problems related to release from residential Z65.2 [place] [id number] [place] [address] 99502- 6388 07 Mar, 2016 Post-traumatic stress disorder, unspecified F43.10 ; Major depressive disorder, recurrent, moderate F33.1 and Problems related to release from residential Z65.2 [place] [id number] [place] [address] 39047- 4566 Feb, Post-traumatic stress disorder, unspecified F43.10 ; Major depressive disorder, recurrent, moderate F33.1 and Problems related to release from residential Z65.2 [place] [id number] [place] [address] 93825- 2300 Feb, Chronic tension headaches G44.229 [place] [id number] [place] [address] 74280- 2286 17 Feb, 2016 Sleep apnea, obstructive G47.33 ; Obesity E66.9 ; Hyperlipidemia E78.5 ; Glaucoma H40.9 ; Chronic pain G89.29 ; HTN (hypertension ) I10 ; 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 ; 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 ; Chronic tension headaches G44.229 ; Cough R05 ; CAD (coronary artery disease) I25.10 ; Problems related to release from residential Z65.2 ; Arrhythmia as indication for cardiac pacemaker replacement I49.9 and Primary insomnia F51.01 [place] [address] 59310- 9614 17 Feb, 2016 Post-traumatic stress disorder, unspecified F43.10 and Chronic pain G89.[address] 30060- 1152 13 Feb, 2016 [facility] [address] [id number] Feb, Dental caries K02.[address] 12300- 6277 06 Feb, 2016 [place] [address] 32735- 5407 Feb, Post-traumatic stress disorder, unspecified F43.10 ; Major depressive disorder, recurrent, moderate F33.1 and Problems related to release from residential Z65.2 [place] [address] 71746- 7547 Jan, Sleep apnea, obstructive G47.33 and Chronic pain G89.[address] 01139- 8472 Jan, [address] 69639- 9797 14 Jan, 2016 Dental examination Z01.[address] 60256- 6578 Jan, [place] [address], [place] [address]- 9863 Jan, [place] [id number] [place] [address] 23350- 7036 Dec, Post-traumatic stress disorder, unspecified F43.10 ; Major depressive disorder, recurrent, moderate F33.1 and Problems related to release from residential Z65.2 [place] [id number] [place] [address] 49831- 3688 Dec, Encounter for immunization Z23 ; Problems related to release from residential Z65.2 ; Sleep apnea, obstructive G47.33 and Post-traumatic stress disorder, chronic F43.12 [place] [id number] [place] [address] 82357- 5056 Dec, Sleep apnea, obstructive G47.33 ; Hyperlipidemia E78.5 ; Chronic pain G89.29 ; Glaucoma H40.9 ; HTN (hypertension) I10 ; Post-traumatic stress disorder, unspecified F43.10 ; Anxiety F41.9 ; Chronic tension headaches G44.229 ; Mitral valve prolapse I34.1 and CAD (coronary artery disease) I25.[address] [place] [address] 23185- 4768 Dec, Post-traumatic stress disorder, unspecified F43.10 ; Major depressive disorder, recurrent, moderate F33.1 and Problems related to release from residential Z65.2 [place] [address] [place] [address] 28467- 7035 Nov, Chronic pain G89.29 [address] [place] [address] 79599- 7739 Nov, Post-traumatic stress disorder, unspecified F43.10 ; Major depressive disorder, recurrent, moderate F33.1 and Problems related to release from residential Z65.2 [place] [address], [place] [address]- 5728 Oct, [address] [place] [address]- 6975 23 Oct, 2015 [facility] [id number] [place] [address] 38238- 3469 16 Oct, 2015 Post-traumatic stress disorder, unspecified F43.10 ; Major depressive disorder, recurrent, moderate F33.1 and Problems related to release from residential Z65.2 [facility] [id number] [place] [address] 03959- 6410 08 Oct, 2015 [facility] [id number] [place] [address] 75243- 9155 07 Oct, 2015 Environmental allergies Z91.09 ; Cough R05 and 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 [facility] [id number] [place] [address] 70184- 0707 Sep, [facility] [id number] [place] [address] 97950- 4292 Sep, Post-traumatic stress disorder, unspecified F43.10 ; Major depressive disorder, recurrent, moderate F33.1 and Problems related to release from residential Z65.2 [facility] [id number] [place] [address] 96791- 1521 Sep, Chronic pain G89.29 [facility] [id number] [place] [address] 46798- 9307 Sep, Pain in left shoulder M25.512 ; Pain in right shoulder M25.511 and Other chronic pain G89.29 [facility] [id number] [place] [address] 80790- 3400 Sep, [facility] [id number] [place] [address] 48861- 1081 Sep, [facility] [id number] [place] [address] 81616- 1085 Sep, [facility] [id number] [place] [address] [id number] Aug, Dental examination Z01.20 [facility] [address], [place] [address]- 8307 Aug, Post-traumatic stress disorder, unspecified F43.10 ; Open- angle glaucoma of both 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 and Problems related to release from residential Z65.2 [facility] [address], [place] [address]- 0950 Aug, [facility] [id number] [place] [address] 45611- 9437 Aug, Sleep apnea, obstructive G47.33 ; Obesity E66.9 ; Hyperlipidemia E78.5 ; Bilateral headaches R51 ; HTN (hypertension) I10 ; Post- traumatic stress disorder, unspecified F43.10 ; Anxiety F41.9 ; Neuropathy G62.9 ; Glaucoma H40.9 and Chronic pain G89.29 [facility] [address] [place] [address] [id number] Aug, Encounter for dental examination Z01.20 [facility] [id number] [place] [address] 17204- 5965 Aug, Post-traumatic stress disorder, unspecified F43.10 ; Major depressive disorder, recurrent, moderate F33.1 and Problems related to release from residential Z65.2 [facility] [address], [place] [address]- 0909 Aug, [facility] [id number] [place] [address] 36118- 0945 Jul, [facility] [id number] [place] [address] 16355- 6582 Jul, Post-traumatic stress disorder, unspecified F43.10 and Major depressive disorder, recurrent, moderate F33.1 [facility] [id number] [place] [address] 87004- 6026 Jul, [facility] [address], [place] [address]- 4188 Jul, [facility] [id number] [place] [address] 18388- 3305 Jul, Chronic pain G89.29 [facility] [id number] [place] [address] 89951- 8302 June, Post-traumatic stress disorder, unspecified F43.10 and Major depressive disorder, recurrent, moderate F33.1 [facility] [id number] [place] [address] 17837- 5618 June, [facility] [id number] [place] [address] 79190- 5892 June, Chronic pain G89.29 [place] [id number] [place] [address] 51342- 3748 June, Post-traumatic stress disorder, unspecified F43.10 and Major depressive disorder, recurrent, moderate F33.1 [place] [id number] [place] [address] 92572- 4009 May, Post-traumatic stress disorder, unspecified F43.10 and Major depressive disorder, recurrent, moderate F33.1 [place] [id number] [place] [address] 28624- 6038 May, [facility] [id number] [place] [address] 82518- 0058 May, [place] [id number] [place] [address] 21481- 0492 May, [facility] [id number] [place] [address] 77769- 6057 Apr, [facility] [id number] [place] [address] 07274- 4337 Apr, Post-traumatic stress disorder, unspecified F43.10 and Sleep apnea, obstructive G47.33 [facility] [id number] [place] [address] 83235- 3142 Apr, [facility] [id number] [place] [address] 50831- 0041 Apr, Shoulder pain, left M25.512 [facility] [id number] [place] [address] 74427- 3347 Apr, Post-traumatic stress disorder, unspecified F43.10 and Major depressive disorder, recurrent, moderate F33.1 [facility] [id number] [place] [address] 30322- 5702 17 Apr, 2015 [facility] [id number] [place] [address] 84916- 1912 Apr, [facility] [id number] [place] [address] 84320- 2247 Apr, [facility] [id number] [place] [address] 95615- 3055 Apr, Left shoulder pain M25.512 [facility] [id number] [place] [address] 45460- 7302 Mar, [facility] [id number] [place] [address] 09278- 9916 Mar, [facility] [id number] [place] [address] 87619- 4516 Mar, [facility] [id number] [place] [address] 49300- 3163 12 Mar, 2015 Sleep apnea, obstructive G47.33 ; Obesity E66.9 ; Chronic pain G89.29 ; Hyperlipidemia E78.5 ; HTN (hypertension) I10 ; 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 ; Major depressive disorder, recurrent, moderate F33.1 and Anxiety F41.9 [facility] [id number] [place] [address] 84307- 1639 Mar, [facility] [id number] [place] [address] 08217- 4266 Mar, Post-traumatic stress disorder, unspecified F43.10 and Major depressive disorder, recurrent, moderate F33.1 [facility] [id number] [place] [address] 45240- 3355 Mar, [place] [address] 802954- 3247 Mar, HTN (hypertension) I10 ; 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 ; Obesity E66.9 ; Hyperlipidemia E78.5 ; Glaucoma H40.9 ; Chronic pain G89.29 and CAD (coronary artery disease) I25.10 [place] [address] 84299- 6939 Feb, [place] [address] 92752- 1848 Feb, Post-traumatic stress disorder, unspecified F43.10 ; Obesity E66.9 ; Sleep apnea, obstructive G47.33 and 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 [address] 46415- 5194 Feb, Post-traumatic stress disorder, unspecified F43.10 and Major depressive disorder, recurrent, moderate F33.[address] 06144- 4731 Feb, [place] [address] 68451- 3814 Feb, [address] 15127- 3168 Feb, HTN (hypertension) I10 ; Post-traumatic stress disorder, unspecified F43.10 ; 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 ; Obesity E66.9 ; Hyperlipidemia E78.5 ; Chronic pain G89.29 ; Glaucoma H40.9 ; Mitral valve prolapse I34.1 and Bilateral headaches R51 [place] [address] 27935- 0366 Feb, [address] 23573- 2477 Feb, Post-traumatic stress disorder, unspecified F43.10 and Major depressive disorder, recurrent, moderate F33.1 [place] [id number] [place] [address] 79200- 7292 Feb, [facility] [id number] [place] [address] 17538- 3219 Feb, [facility] [id number] [place] [address] 14854- 9780 Jan, [facility] [id number] [place] [address] 57736- 6386 Jan, [facility] [id number] [place] [address] 97244- 8382 Jan, Obesity E66.9 ; HTN (hypertension) I10 ; 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 ; Major depressive disorder, recurrent, moderate F33.1 ; Glaucoma H40.9 ; Hyperlipidemia E78.5 ; Sleep apnea, obstructive G47.33 ; Chronic pain G89.29 ; Anxiety F41.9 ; Chronic tension headaches G44.229 and Cough R05 [place] [facility] [id number] [place] [address] 73354- 1047 Jan, [facility] [id number] [place] [address] 67122- 8314 Jan, [facility] [id number] [place] [address] 14159- 7093 Jan, Post-traumatic stress disorder, unspecified F43.10 ; Obesity E66.9 ; Sleep apnea, obstructive G47.33 and 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 [place] [id number] [place] [address] 84270- 9663 Jan, [place] [facility] [id number] [place], [place] [address]- 15[address] Jan, Post-traumatic stress disorder, unspecified F43.10 and Major depressive disorder, recurrent, moderate F33.1 [facility] [id number] [place] [address] 95502- 0197 Dec, [facility] [id number] [place] [address] 73281- 2319 Dec, Sleep apnea, obstructive G47.33 ; Obesity E66.9 ; Hyperlipidemia E78.5 ; Glaucoma H40.9 ; Chronic pain G89.29 ; HTN (hypertension ) I10 ; 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 ; Anxiety F41.9 and CAD (coronary artery disease) I25.10 [facility] [address] 75340- 3499 Nov, [facility] [address] 12951- 4153 Nov, [facility] [id number] [place] [address] 05845- 1660 Nov, [facility] [address] [place] [address] 88154- 0373 Nov, [facility] [id number] [place] [address] 37554- 3599 Nov, [facility] [address] [place] [id number] [place] [address] 22908- 4400 Nov, Encounter for immunization Z23 ; Sleep apnea, obstructive G47.33 ; Obesity E66.9 ; Hyperlipidemia E78.5 ; Glaucoma H40.9 ; Chronic pain G89.29 ; Anxiety F41.9 ; Chronic tension headaches G44.229 and HTN (hypertension ) I10 [facility] [id number] [place] [address] 58830- 2284 Nov, [facility] [address] 49900- 5835 Nov, [facility] [address] 31147- 7198 Nov, Dizziness R42 [facility] [id number] [place] [address] 20540- 2481 Nov, [place] [address] [address]- 4966 Oct, [facility] [id number] [place] [address] 49875- 2000 Oct, [facility] [id number] [place] [address] 28105- 5119 Oct, [facility] [id number] [place] [address] 31364- 4266 Oct, [facility] [id number] [place] [address] 30429- 9979 Oct, Dizziness 780.4 ; Essential hypertension 401.9 ; Obesity 278.00 ; Hyperlipidemia 272.4 ; Chronic pain 338.29 ; Glaucoma 365.9 and Anxiety 300.00 [facility] [id number] [place] [address] 26091- 9132 Oct, Essential hypertension 401.9 ; Hyperlipidemia 272.4 ; Glaucoma 365.9 ; Obesity 278.00 ; Chronic pain 338.29 and Allergy to insects V15.06 [facility] [id number] [place] [address] 33852- 4975 Sep, [facility] [id number] [place] [address] 58376- 1471 Sep, [facility] [address] [address]- 9804 Sep, [facility] [id number] [place] [address] 45295- 1136 Sep, [facility] [id number] [place] [address] 29491- 7984 Aug, Essential hypertension 401.9 ; Obesity 278.00 ; Hyperlipidemia 272.4 ; Glaucoma 365.9 ; Lipoma 214.9 ; Mitral valve prolapse 424.0 ; Angina at rest 413.9 ; Lymphedema 457.1 and Chronic pain 338.29 IMMUNIZATIONS No Known Immunizations SOCIAL HISTORY Never Assessed REASON FOR VISIT Medication refill request PLAN OF CARE VITAL SIGNS MEDICATIONS Medication Instructions Dosage Frequency Start Date End Date Duration Status Metoprolol Succinate ER 200 mg Orally Once a day 1 tablet 24h 90 days Active Viagra 100 mg Orally Once a day prn 1 tablet as needed Jul, Aug, 10 days Active RESULTS No Results PROCEDURES No Known procedures INSTRUCTIONS MEDICATIONS ADMINISTERED No Known Medications MEDICAL (GENERAL) HISTORY Type Description Date Medical History hypertension Medical History hyperlipidemia Medical History mitral valve prolapse Medical History glaucoma Medical History loop recorder Medical History Post-traumatic [...]
--- OUTSIDE RECORDS SUMMARY | 2018-02-04 13:47 | XMS REPORT ---
Author Author TRENT Arreguin [facility] Address Unknown Care Team Providers [facility] Manager Name Role Phone TRENT Arreguin Unavailable PROBLEMS Type Condition ICD9-CM Code WIV11-FT Code Onset Dates Condition Status SNOMED Code Problem CAD (coronary artery disease) I25.10 Active 59371828 Problem Encounter for dental examination Z01.20 Active 957254899 Problem Shoulder pain, left M25.512 Active 37452316 Problem Post-traumatic stress disorder, unspecified F43.10 Active 38679747 Problem Hyperlipidemia E78.5 Active 29645300 Problem Primary insomnia F51.01 Active 4652205 Problem Obesity E66.9 Active 129726848 Problem Chronic pain G89.29 Active 57325277 Problem Post-traumatic stress disorder, chronic F43.12 Active 686667321 Problem Bilateral headaches R51 Active 115332532 Problem Arrhythmia as indication for cardiac pacemaker replacement I49.9 Active 78481078 Problem Environmental allergies Z91.09 Active 281277492 Problem 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 Active 592336824 Problem HTN (hypertension) I10 Active 44848192 Problem Glaucoma H40.9 Active 50982662 Problem Problems related to release from halfway Z65.2 Active 96141469 Problem Anxiety F41.9 Active 14721292 Problem Major depressive disorder, recurrent, moderate F33.1 Active 29703500 Problem Chronic tension headaches G44.229 Active 684333010 Problem 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 Active 33007785 Problem Sleep apnea, obstructive G47.33 Active 59478499 Problem Cough R05 Active 01082514 Problem Mitral valve prolapse I34.1 Active 941403012 ALLERGIES Substance Reaction Event Type Date Status Penicillin G Potassium rash Drug Allergy Feb, Active Aspirin nausea and vomiting Drug Allergy Feb, Active Wasp venom anaphylaxis Non Drug Allergy Feb, Active SOCIAL HISTORY No smoking Hx information available PLAN OF CARE Activity Details Follow Up prn Reason:fillings VITAL SIGNS Height 67 in 2016-02-19 Blood pressure systolic 137 mmHg 2016-02-19 Blood pressure diastolic 88 mmHg 2016-02-19 MEDICATIONS Medication Instructions Dosage Frequency Start Date End Date Duration Status EPINEPHrine HCl 0.3 mg as directed Oct, Active Ambien 10 mg Orally Once a day 1 tablet at bedtime as needed 24h Dec, Active Xanax 1 MG Orally for anxiety 1/2 tab in AM and 1 tab at bedtime Feb, 28 days Active Nitrostat 0.4 MG Sublingual PRN Instill Active Zolpidem Tartrate 10 MG TAKE ONE-HALF TO ONE TABLET BY MOUTH AT BEDTIME FOR SLEEP 30 Active Furosemide 40 MG TAKE ONE TABLET BY MOUTH ONCE DAILY 90 Active Meclizine HCl 25 MG Orally PRN 1 tablet as needed Oct, Active Timolol 0.5 % Ophthalmic Once a day 1 drop into affected eye 24h 20 Dec, 2014 Active Hydrocodone-Acetaminophen 7.5-325 MG Orally every 6 hrs 1 tablet as needed 6h 18 Dec, 2015 28 days Active Gabapentin 300 MG Orally 2 times a day 1 tablet 12h Active Ambien 10 mg Orally Once at bedtime for sleep 1/2 to 1 tablet Jan, 28 days Active Topamax 100 MG Orally Twice a day 1 tablet 12h Aug, Active Xalatan 0.005 % Ophthalmic Once a day 1 drop into each eye in the evening 24h 08 Oct, 2015 Active RESULTS No Results PROCEDURES Procedure Date Ordered Related Diagnosis Body Site EXTRAC ERUPTED TOOTH/EXPOSED ROOT Feb 19, 2016 IMMUNIZATIONS No Known Immunizations
--- OUTSIDE RECORDS SUMMARY | 2018-02-04 13:47 | XMS REPORT ---
Author Author CJ EDGE Organization [facility] Address [address] [place] [address] Care Team Providers Care Automatic Nailing Machine Feeder Name Role Phone CJ EDGE Unavailable PROBLEMS Type Condition ICD9-CM Code UMH16-WK Code Onset Dates Condition Status SNOMED Code Problem Environmental allergies Z91.09 Active 117103206 Problem Primary insomnia F51.01 Active 6656826 Problem Arrhythmia as indication for cardiac pacemaker replacement I49.9 Active 05977061 Problem Chronic pain syndrome G89.4 Active 355861583 Problem Sleep apnea, obstructive G47.33 Active 84930345 Problem Migraine without aura and without status migrainosus, not intractable G43.009 Active 964256961 Problem Hyperlipidemia E78.5 Active 33808426 Problem Myocarditis, unspecified chronicity, 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 Active 69963349 Problem Other male erectile dysfunction N52.8 Active 076348645 Problem Morbid (severe) obesity due to excess calories E66.01 Active 413421899 Problem 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 Active 543048556 Problem Body mass index (BMI) of 40.0-44.9 in adult Z68.41 Active 969229395 Problem 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 Active 621876167 Problem Chronic tension headaches G44.229 Active 032242794 Problem Chronic pain G89.29 Active 44779808 Problem HTN (hypertension) I10 Active 46900450 Problem 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 Active 40345410 Problem Mitral valve prolapse I34.1 Active 818837860 Problem Anxiety F41.9 Active 58287154 Problem CAD (coronary artery disease) I25.10 Active 31932855 Problem Major depressive disorder, recurrent, moderate F33.1 Active 62352112 Problem Post-traumatic stress disorder, chronic F43.12 Active 393747069 ALLERGIES No Information ENCOUNTERS Encounter Location Date Diagnosis [facility] [address] [facility] [id number] [place] [address] 35984- 4064 Jul, [facility] [address], [place] [address] 14[address] May, [facility] [id number] [place] [address] 68142- 6256 May, [facility] [address] [place] [address] 31007- 3002 Apr, [facility] [id number] [place] [address] 17120- 0705 29 Apr, 2017 Left leg pain M79.605 [facility] [id number] [place] [address] 52318- 9079 27 Apr, 2017 Post-traumatic stress disorder, unspecified F43.10 ; Problems related to release from custodial Z65.2 ; Anxiety F41.9 and BMI 40.0-44.9 , adult Z68.41 [facility] [id number] [place] [address] 74577- 9850 22 Apr, 2017 [facility] [id number] [place] [address] 20762- 5956 Apr, Left leg pain M79.605 [facility] [id number] [place] [address] 80922- 6482 13 Apr, 2017 Post-traumatic stress disorder, unspecified F43.10 ; Major depressive disorder, recurrent, moderate F33.1 and Problems related to release from custodial Z65.2 [facility] [address] [place] [address] 28761- 5012 12 Apr, 2017 [facility] [address] [place] [address] 67781- 7115 Apr, Chronic pain G89.29 ; 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 ; Morbid (severe) obesity due to excess calories E66.01 ; Anxiety F41.9 and BMI 40.0-44.9, adult Z68.41 [facility] [address] [place] [address] 27578 -2444 Apr, Sore throat J02.9 and BMI 40.0-44.9, adult Z68.41 [facility] [id number] [place] [address] 54372- 6528 02 Apr, 2017 Left leg pain M79.605 [facility] [address] [place] [address] [id number] Mar, Dental examination Z01.20 [place] [address] 23644- 7305 Mar, [facility] [address] 70261 -5025 Mar, Cough R05 ; Viral gastroenteritis A08.4 and BMI 40.0-44.9, adult Z68.41 [facility] [id number] [place] [address] 10133- 9283 Mar, Left leg pain M79.605 [facility] [id number] [place] [address] 54497- 2148 06 Mar, 2017 Post-traumatic stress disorder, unspecified F43.10 ; Major depressive disorder, recurrent, moderate F33.1 and Problems related to release from custodial Z65.2 [facility] [id number] [place] [address] 78488- 2441 Feb, Left leg pain M79.605 [facility] [id number] [place] [address] 49121- 0126 Feb, [facility] [id number] [place] [address] 15212- 5866 Feb, BMI 40.0-44.9, adult Z68.41 ; Chronic pain syndrome G89.4 ; Migraine without aura and without status migrainosus, not intractable G43.009 ; Mitral valve prolapse I34.1 and 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 [facility] [id number] [place] [address] 32377- 8337 25 Diego, 2018 Post-traumatic stress disorder, chronic F43.12 ; Anxiety F41.9 ; Problems related to release from custodial Z65.2 and BMI 40.0-44.9, adult Z68.41 [facility] [id number] [place] [id number] Feb, Post-traumatic stress disorder, unspecified F43.10 ; Major depressive disorder, recurrent, moderate F33.1 and Problems related to release from custodial Z65.2 [facility] [id number] [place] [address] 26463- 4515 Feb, Left leg pain M79.605 [facility] [id number] [place] [address] 70723- 5707 Jan, Post-traumatic stress disorder, unspecified F43.10 ; Major depressive disorder, recurrent, moderate F33.1 and Problems related to release from custodial Z65.2 [facility] [id number] [place] [address] 23807- 3431 Jan, [facility] [id number] [place] [address] 44851- 5065 Jan, [facility] [id number] [place] [address] 33418- 0583 Jan, Anxiety F41.9 [facility] [id number] [place] [address] 15343- 6228 Jan, Left leg pain M79.605 [facility] [id number] [place] [address] 90115- 3536 Dec, Left leg pain M79.605 [facility] [id number] [place] [address] 30763- 8536 Dec, [facility] [id number] [place] [address] 56334- 8616 Dec, Post-traumatic stress disorder, unspecified F43.10 ; Major depressive disorder, recurrent, moderate F33.1 and Problems related to release from custodial Z65.2 [facility] [id number] [place] [address] 24563- 5084 31 Nov, 2016 Chronic pain G89.29 and Anxiety F41.9 [place] [id number] [place] [address] 21279- 2036 24 Nov, 2016 Chronic pain G89.29 and Anxiety F41.[address] 05719- 7994 16 Nov, 2016 Post-traumatic stress disorder, unspecified F43.10 ; Major depressive disorder, recurrent, moderate F33.1 and Problems related to release from custodial Z65.[address] 08638- 9040 09 Nov, 2016 Other abnormal findings in specimens from other organs, systems and tissues R89.8 ; Other male erectile dysfunction N52.8 ; Body mass index (BMI) of 40.0-44.9 in adult Z68.41 and Morbid (severe) obesity due to excess calories E66.01 [place] [id number] [place] [address] 93935- 7032 02 Nov, 2016 Post-traumatic stress disorder, unspecified F43.10 ; Major depressive disorder, recurrent, moderate F33.1 and Problems related to release from custodial Z65.2 [facility] [address] [place] [address] [id number] Oct, Dental examination Z01.20 [place] [id number] [place] [address] 13268- 3331 Oct, [place] [id number] [place] [address] 59188- 9128 Oct, Encounter for immunization Z23 [address] 98063- 0878 Oct, Chronic pain G89.29 ; Anxiety F41.9 ; Arrhythmia as indication for cardiac pacemaker replacement I49.9 and Glaucoma H40.[address] 50705- 8902 Oct, Anxiety F41.9 ; Post-traumatic stress disorder, chronic F43.12 and Problems related to release from custodial Z65.2 [facility] [id number] [place] [address] 47859- 2765 07 Oct, 2016 Post-traumatic stress disorder, unspecified F43.10 ; Major depressive disorder, recurrent, moderate F33.1 and Problems related to release from custodial Z65.2 [facility] [id number] [place] [address] 83328- 0589 30 Sep, 2016 Chronic pain G89.29 and Anxiety F41.[address] 45912- 4748 Sep, Post-traumatic stress disorder, unspecified F43.10 ; Major depressive disorder, recurrent, moderate F33.1 and Problems related to release from custodial Z65.2 [facility] [address] 25367- 6835 Sep, Post-traumatic stress disorder, unspecified F43.10 ; Major depressive disorder, recurrent, moderate F33.1 and Problems related to release from custodial Z65.2 [place] [id number] [place] [address] 39123- 3944 Sep, Chronic pain G89.29 [place] [id number] [place] [address] 47751- 7730 Aug, Dental caries, unspecified K02.9 [facility] [id number] [place] [address] 04952- 3671 Aug, Sleep apnea, obstructive G47.33 ; Obesity E66.9 ; Chronic pain G89.29 ; HTN (hypertension) I10 ; Major depressive disorder, recurrent, moderate F33.1 ; Anxiety F41.9 ; Chronic tension headaches G44.229 ; Mitral valve prolapse I34.1 ; Arrhythmia as indication for cardiac pacemaker replacement I49.9 ; Dental caries, unspecified K02.9 ; Primary insomnia F51.01 and Hyperlipidemia E78.5 [place] [address] [address]- 6876 Aug, Post-traumatic stress disorder, unspecified F43.10 ; Major depressive disorder, recurrent, moderate F33.1 and Problems related to release from custodial Z65.2 [facility] [address], [place] [address]- 9819 Aug, Dental examination Z01.20 [facility] [address] [place] [address] [id number] Aug, Dental examination Z01.20 [facility] [id number] [place] [address] 55878- 2969 06 Aug, 2016 Post-traumatic stress disorder, unspecified F43.10 ; Major depressive disorder, recurrent, moderate F33.1 and Problems related to release from custodial Z65.2 [facility] [id number] [place] [address] 17140- 5124 Aug, Chronic pain G89.29 and Primary insomnia F51.01 [facility] [id number] [place] [address] 99379- 1707 Jul, [facility] [id number] [place] [address] 86435- 4393 Jul, [facility] [address] [place] [address] 55206- 1373 Jul, Nausea R11.0 [facility] [id number] [place] [address] 21694- 6369 Jul, Arrhythmia as indication for cardiac pacemaker replacement I49.9 [facility] [address] [place] [address] 97697- 7085 Jul, Post-traumatic stress disorder, unspecified F43.10 ; Major depressive disorder, recurrent, moderate F33.1 and Problems related to release from custodial Z65.2 [facility] [address], [place] [address]- 5899 Jul, Anxiety F41.9 [facility] [address] [place] [address]- 3163 08 Jul, 2016 Chronic pain G89.29 [place] [address] 52608- 1917 Jul, Sleep apnea, obstructive G47.33 ; Hyperlipidemia E78.5 ; Chronic pain G89.29 ; 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 ; Major depressive disorder, recurrent, moderate F33.1 ; Anxiety F41.9 ; Mitral valve prolapse I34.1 ; Arrhythmia as indication for cardiac pacemaker replacement I49.9 ; Primary insomnia F51.01 ; Bilateral headaches R51 and Environmental allergies Z91.09 [place] [address] 59386- 9549 Jul, Post-traumatic stress disorder, unspecified F43.10 ; Major depressive disorder, recurrent, moderate F33.1 and Problems related to release from custodial Z65.2 [facility] [address] 65561- 0586 June, Post-traumatic stress disorder, chronic F43.12 ; Anxiety F41.9 ; Problems related to release from custodial Z65.2 ; Sleep apnea, obstructive G47.33 and Primary insomnia F51.01 [facility] [id number] [place] [address] 28764- 7822 June, [facility] [id number] [place] [address] 40378- 5416 June, [facility] [address] 48900- 2639 June, [facility] [id number] [place] [address] 81037- 0211 June, Chronic pain G89.29 [facility] [address] 65654- 8904 June, Chronic pain G89.29 [facility] [id number] [place] [address] 12851- 7128 June, Lipoma of left lower extremity D17.24 ; Open wound T14.8 and Swelling of left lower extremity M79.89 [facility] [id number] [place] [address] 90802- 9371 June, Post-traumatic stress disorder, unspecified F43.10 ; Major depressive disorder, recurrent, moderate F33.1 and Problems related to release from custodial Z65.2 [facility] [address] 29128- 1868 May, Lipoma of left lower extremity D17.24 ; Major depressive disorder, recurrent, moderate F33.1 ; Sleep apnea, obstructive G47.33 ; Hyperlipidemia E78.5 ; Obesity E66.9 ; HTN (hypertension) I10 ; Glaucoma H40.9 ; CAD (coronary artery disease) I25.10 ; Chronic tension headaches G44.229 ; Chronic pain G89.29 ; Anxiety F41.9 ; Nausea R11.0 and Primary insomnia F51.01 [place] [address] 84659- 9359 May, [facility] [address] 27924- 5437 May, Chronic pain G89.29 [place] [address] 16260- 3196 May, [facility] [id number] [place] [address] 53420- 3869 Apr, Post-traumatic stress disorder, unspecified F43.10 ; Major depressive disorder, recurrent, moderate F33.1 and Problems related to release from custodial Z65.2 [facility] [id number] [place] [address] 48474- 4419 Apr, Primary insomnia F51.01 ; Post-traumatic stress disorder, chronic F43.12 and Problems related to release from custodial Z65.2 [facility] [id number] [place] [address] 78515- 3534 Apr, Post-traumatic stress disorder, unspecified F43.10 ; Major depressive disorder, recurrent, moderate F33.1 and Problems related to release from custodial Z65.2 [facility] [id number] [place] [address] 54021- 8552 16 Apr, 2016 [place] [address] 89941- 5289 16 Apr, 2016 Sleep apnea, obstructive G47.33 ; Chronic pain G89.29 ; HTN (hypertension) I10 ; Mitral valve prolapse I34.1 ; Shoulder pain, left M25.512 ; Arrhythmia as indication for cardiac pacemaker replacement I49.9 ; Glaucoma H40.9 ; Bilateral headaches R51 ; Environmental allergies Z91.09 ; Primary insomnia F51.01 and Nausea R11.0 [place] [address] 88934- 1333 15 Apr, 2016 [place] [address] 48228- 7111 Apr, [place] [address] 00390- 3123 Apr, Post-traumatic stress disorder, unspecified F43.10 ; Major depressive disorder, recurrent, moderate F33.1 and Problems related to release from custodial Z65.2 [facility] [id number] [place] [address] 14207- 4144 07 Apr, 2016 HTN (hypertension) I10 [place] [id number] [place] [address] 05909- 1855 Apr, HTN (hypertension) I10 [place] [id number] [place] [address] 88561- 0094 14 Mar, 2016 Chronic pain G89.29 ; Primary insomnia F51.01 and Problems related to release from custodial Z65.2 [facility] [id number] [place] [address] 72857- 7804 07 Mar, 2016 Post-traumatic stress disorder, unspecified F43.10 ; Major depressive disorder, recurrent, moderate F33.1 and Problems related to release from custodial Z65.2 [facility] [place] [id number] [place] [address] 57771- 6518 Feb, Post-traumatic stress disorder, unspecified F43.10 ; Major depressive disorder, recurrent, moderate F33.1 and Problems related to release from custodial Z65.2 [place] [address] [place] [address] 09615- 9811 Feb, Chronic tension headaches G44.[address] 52054- 1262 Feb, Sleep apnea, obstructive G47.33 ; Obesity E66.9 ; Hyperlipidemia E78.5 ; Glaucoma H40.9 ; Chronic pain G89.29 ; HTN (hypertension ) I10 ; 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 ; 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 ; Chronic tension headaches G44.229 ; Cough R05 ; CAD (coronary artery disease) I25.10 ; Problems related to release from custodial Z65.2 ; Arrhythmia as indication for cardiac pacemaker replacement I49.9 and Primary insomnia F51.01 [place] [address] [place] [address] 73680- 3306 Feb, Post-traumatic stress disorder, unspecified F43.10 and Chronic pain G89.29 [place] [address] [place] [address] 69816- 5769 Feb, [facility] [address] [place] [address] [id number] Feb, Dental caries K02.9 [place] [address] [place] [address] 51404- 7884 Feb, [address] 28857- 1632 Feb, Post-traumatic stress disorder, unspecified F43.10 ; Major depressive disorder, recurrent, moderate F33.1 and Problems related to release from custodial Z65.2 [place] [address] [place] [address] 41599- 8281 Jan, Sleep apnea, obstructive G47.33 and Chronic pain G89.29 [place] [address], [place] [address]- 0630 Jan, [place] [address] [place] [address] 92828- 9613 14 Jan, 2016 Dental examination Z01.20 [place] [address], [place] [address]- 3931 09 Jan, 2016 [place] [id number] [place] [address] 58882- 0958 Jan, [place] [id number] [place] [address] 70011- 5036 Dec, Post-traumatic stress disorder, unspecified F43.10 ; Major depressive disorder, recurrent, moderate F33.1 and Problems related to release from custodial Z65.2 [place] [id number] [place] [address] 62525- 5404 29 Dec, 2015 Encounter for immunization Z23 ; Problems related to release from custodial Z65.2 ; Sleep apnea, obstructive G47.33 and Post-traumatic stress disorder, chronic F43.[address] [place] [address] 96089- 1562 18 Dec, 2015 Sleep apnea, obstructive G47.33 ; Hyperlipidemia E78.5 ; Chronic pain G89.29 ; Glaucoma H40.9 ; HTN (hypertension) I10 ; Post-traumatic stress disorder, unspecified F43.10 ; Anxiety F41.9 ; Chronic tension headaches G44.229 ; Mitral valve prolapse I34.1 and CAD (coronary artery disease) I25.10 [place] [address] [address]- 1916 15 Dec, 2015 Post-traumatic stress disorder, unspecified F43.10 ; Major depressive disorder, recurrent, moderate F33.1 and Problems related to release from custodial Z65.2 [address] [address]- 1754 Nov, Chronic pain G89.29 [place] [address] [address]- 1138 Nov, Post-traumatic stress disorder, unspecified F43.10 ; Major depressive disorder, recurrent, moderate F33.1 and Problems related to release from custodial Z65.2 [place] [address], [place] [address]- 2834 Oct, [place] [id number] [place] [address] 22081- 2649 Oct, [place] [id number] [place] [address] 49587- 9164 16 Oct, 2015 Post-traumatic stress disorder, unspecified F43.10 ; Major depressive disorder, recurrent, moderate F33.1 and Problems related to release from custodial Z65.2 [place] [id number] [place] [address] 46375- 6782 08 Oct, 2015 [place] [id number] [place] [address] 21787- 8403 07 Oct, 2015 Environmental allergies Z91.09 ; Cough R05 and 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 [place] [id number] [place] [address] 52265- 6088 Sep, [place] [address] [place] [address] 95142- 5565 Sep, Post-traumatic stress disorder, unspecified F43.10 ; Major depressive disorder, recurrent, moderate F33.1 and Problems related to release from custodial Z65.2 [place] [address], [place] [address]- 6551 Sep, Chronic pain G89.29 [place] [id number] [place] [address] 16856- 3564 Sep, Other chronic pain G89.29 ; Pain in right shoulder M25.511 and Pain in left shoulder M25.512 [place] [id number] [place] [address] 50347- 0076 Sep, [facility] [id number] [place] [address] 84494- 2697 Sep, [facility] [id number] [place] [address] 841690- 9815 Sep, [facility] [address] [place] [address] [id number] Aug, Dental examination Z01.20 [facility] [address] 64549- 9706 Aug, Post-traumatic stress disorder, unspecified F43.10 ; Open- angle glaucoma of both 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 and Problems related to release from custodial Z65.2 [facility] [id number] [place] [address] 25850- 3825 Aug, [facility] [address] 35550- 1489 Aug, Sleep apnea, obstructive G47.33 ; Obesity E66.9 ; Hyperlipidemia E78.5 ; Bilateral headaches R51 ; HTN (hypertension) I10 ; Post- traumatic stress disorder, unspecified F43.10 ; Anxiety F41.9 ; Neuropathy G62.9 ; Glaucoma H40.9 and Chronic pain G89.29 [facility] [id number] [place] [address] [id number] Aug, Encounter for dental examination Z01.20 [facility] [address] [place] [address] 13272- 4508 Aug, Post-traumatic stress disorder, unspecified F43.10 ; Major depressive disorder, recurrent, moderate F33.1 and Problems related to release from custodial Z65.2 [facility] [id number] [place] [address] 64079- 5906 Aug, [facility] [id number] [place] [address] 21254- 9693 Jul, [facility] [id number] [place] [address] 63223- 8910 Jul, Post-traumatic stress disorder, unspecified F43.10 and Major depressive disorder, recurrent, moderate F33.1 [facility] [address], [place] [address]- 1243 Jul, [facility] [address], [place] [address]- 7608 Jul, [facility] [id number] [place] [address] 45900- 2229 Jul, Chronic pain G89.29 [facility] [id number] [place] [address]155- [address]01 June, Post-traumatic stress disorder, unspecified F43.10 and Major depressive disorder, recurrent, moderate F33.1 [facility] [id number] [address] June, [facility] [id number] [place] [address] 90338- 7971 June, Chronic pain G89.29 [facility] [id number] [address] June, Post-traumatic stress disorder, unspecified F43.10 and Major depressive disorder, recurrent, moderate F33.1 [facility] [address] [address] May, Post-traumatic stress disorder, unspecified F43.10 and Major depressive disorder, recurrent, moderate F33.1 [facility] [address], [place] [address] May, [facility] [address] [address] May, [facility] [id number] [address] May, [facility] [address] [address] Apr, [facility] [address], [place] [address] 31 Apr, 2015 Post-traumatic stress disorder, unspecified F43.10 and Sleep apnea, obstructive G47.33 [facility] [address], [place] [address] 31 Apr, 2015 [facility] [id number] [place] [address] 97371- 1550 Apr, Shoulder pain, left M25.512 [facility] [id number] [place] [address] 30550- 9351 18 Apr, 2015 Post-traumatic stress disorder, unspecified F43.10 and Major depressive disorder, recurrent, moderate F33.1 [facility] [id number] [place] [address] 34906- 2867 17 Apr, 2015 [facility] [id number] [place] [address] 25914- 6230 Apr, [facility] [id number] [place] [address] 02341- 9078 08 Apr, 2015 [facility] [id number] [place] [address] 67383- 8105 07 Apr, 2015 Left shoulder pain M25.512 [facility] [id number] [place] [address] 38980- 0296 Mar, [facility] [id number] [place] [address] 36804- 4063 Mar, [facility] [id number] [place] [address] 81241- 9019 Mar, [facility] [id number] [place] [address] 43347- 1943 12 Mar, 2015 Sleep apnea, obstructive G47.33 ; Obesity E66.9 ; Chronic pain G89.29 ; Hyperlipidemia E78.5 ; HTN (hypertension) I10 ; 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 ; Major depressive disorder, recurrent, moderate F33.1 and Anxiety F41.9 [facility] [id number] [place] [address] 89880- 1959 Mar, [facility] [id number] [place] [address] 892624- 4462 Mar, Post-traumatic stress disorder, unspecified F43.10 and Major depressive disorder, recurrent, moderate F33.1 [facility] [id number] [place] [address] 54808- 9174 08 Mar, 2015 [facility] [id number] [place] [address] 68720- 7255 04 Mar, 2015 HTN (hypertension) I10 ; 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 ; Obesity E66.9 ; Hyperlipidemia E78.5 ; Glaucoma H40.9 ; Chronic pain G89.29 and CAD (coronary artery disease) I25.10 [facility] [id number] [place] [address] 46547- 6198 Feb, [facility] [id number] [place] [address] 85618- 4961 Feb, Post-traumatic stress disorder, unspecified F43.10 ; Obesity E66.9 ; Sleep apnea, obstructive G47.33 and 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 [facility] [id number] [place] [address] 09063- 7325 Feb, Post-traumatic stress disorder, unspecified F43.10 and Major depressive disorder, recurrent, moderate F33.1 [facility] [id number] [place] [address] 51871- 0733 Feb, [facility] [id number] [place] [address] 94569- 9118 Feb, [facility] [id number] [place] [address] 13167- 1593 Feb, HTN (hypertension) I10 ; Post-traumatic stress disorder, unspecified F43.10 ; 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 ; Obesity E66.9 ; Hyperlipidemia E78.5 ; Chronic pain G89.29 ; Glaucoma H40.9 ; Mitral valve prolapse I34.1 and Bilateral headaches R51 [facility] [id number] [place] [address] 97549- 4049 Feb, [facility] [id number] [place] [address] 92454- 5268 Feb, Post-traumatic stress disorder, unspecified F43.10 and Major depressive disorder, recurrent, moderate F33.1 [facility] [id number] [place] [address] 07551- 3719 Feb, [facility] [address] [address]- 0632 Feb, [facility] [address] 89044- 8690 Jan, [facility] [id number] [place] [address] 19247- 7605 Jan, [facility] [id number] [place] [address] 89068- 6695 Jan, Obesity E66.9 ; HTN (hypertension) I10 ; 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 ; Major depressive disorder, recurrent, moderate F33.1 ; Glaucoma H40.9 ; Hyperlipidemia E78.5 ; Sleep apnea, obstructive G47.33 ; Chronic pain G89.29 ; Anxiety F41.9 ; Chronic tension headaches G44.229 and Cough R05 [facility] [id number] [place] [address] 21786- 5793 Jan, [place] [id number] [place] [address] 81574- 3288 Jan, [place] [id number] [place] [address] 36993- 3188 Jan, Post-traumatic stress disorder, unspecified F43.10 ; Obesity E66.9 ; Sleep apnea, obstructive G47.33 and 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 [facility] [id number] [place] [address] 10778- 6508 Jan, [place] [address]- 9114 Jan, Post-traumatic stress disorder, unspecified F43.10 and Major depressive disorder, recurrent, moderate F33.[address] [address]- 7906 Dec, [facility] [address] [address]13- 2547 Dec, Sleep apnea, obstructive G47.33 ; Obesity E66.9 ; Hyperlipidemia E78.5 ; Glaucoma H40.9 ; Chronic pain G89.29 ; HTN (hypertension ) I10 ; 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 ; Anxiety F41.9 and CAD (coronary artery disease) I25.[address] 6[address]85- 4046 Nov, [place] [place] [address] [address]32- 5879 Nov, [address] [address]- 0523 Nov, [address] [address]75- [address]31 Nov, [address] 53040- 1389 Nov, [place] [id number] [place] [address] 69636- 0108 Nov, Encounter for immunization Z23 ; Sleep apnea, obstructive G47.33 ; Obesity E66.9 ; Hyperlipidemia E78.5 ; Glaucoma H40.9 ; Chronic pain G89.29 ; Anxiety F41.9 ; Chronic tension headaches G44.229 and HTN (hypertension ) I10 [address] 7[address]33- 5600 Nov, [facility] [address], [place] [address]- 3091 14 Nov, 2014 [facility] [id number] [place] [address] 30308- 0320 06 Nov, 2014 Dizziness R42 [facility] [id number] [place] [address] 88885- 0267 Nov, [facility] [id number] [place] [address] 30219- 0196 29 Oct, 2014 [facility] [id number] [place] [address] 04230- 3386 28 Oct, 2014 [facility] [id number] [place] [address] 24519- 3924 Oct, [facility] [id number] [place] [address] 14762- 3377 Oct, [facility] [id number] [place] [address] 05861- 6471 17 Oct, 2014 Dizziness 780.4 ; Essential hypertension 401.9 ; Obesity 278.00 ; Hyperlipidemia 272.4 ; Chronic pain 338.29 ; Glaucoma 365.9 and Anxiety 300.00 [facility] [address], [place] [address]- 8118 02 Oct, 2014 Essential hypertension 401.9 ; Hyperlipidemia 272.4 ; Glaucoma 365.9 ; Obesity 278.00 ; Chronic pain 338.29 and Allergy to insects V15.06 [facility] [address], [place] [address]- 9788 Sep, [facility] [id number] [place] [address] 13964- 5095 Sep, [facility] [id number] [place] [address] 00330- 5889 Sep, [facility] [id number] [place] [address] 16045- 4173 Sep, [facility] [address] [facility] [id number] [address]- 9486 Aug, Essential hypertension 401.9 ; Obesity 278.00 ; Hyperlipidemia 272.4 ; Glaucoma 365.9 ; Lipoma 214.9 ; Mitral valve prolapse 424.0 ; Angina at rest 413.9 ; Lymphedema 457.1 and Chronic pain 338.29 IMMUNIZATIONS No Known Immunizations SOCIAL HISTORY Never Assessed REASON FOR VISIT f/u PLAN OF CARE Activity Details Follow Up 2 Weeks Reason: VITAL SIGNS MEDICATIONS Unknown Medications RESULTS No Results PROCEDURES Procedure Date Ordered Result Body Site Psychotherapy, patient &/family, 45 minutes, established patient August 27, 2016 INSTRUCTIONS MEDICATIONS ADMINISTERED No Known Medications MEDICAL [...]
--- OUTSIDE RECORDS SUMMARY | 2018-02-04 13:48 | XMS REPORT ---
Author Author CJ EDGE Organization [facility] Address [address] [place] [address] Care Team Providers Care Per Diem Registered Nurse Name Role Phone CJ EDGE Unavailable PROBLEMS Type Condition ICD9-CM Code [id number] Code Onset Dates Condition Status SNOMED Code Problem Environmental allergies Z91.09 Active 187643353 Problem Primary insomnia F51.01 Active 8573815 Problem Arrhythmia as indication for cardiac pacemaker replacement I49.9 Active 98888281 Problem Chronic pain syndrome G89.4 Active 286075625 Problem Sleep apnea, obstructive G47.33 Active 48216555 Problem Migraine without aura and without status migrainosus, not intractable G43.009 Active 119191445 Problem Hyperlipidemia E78.5 Active 10649607 Problem Myocarditis, unspecified chronicity, 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 Active 59551488 Problem Other male erectile dysfunction N52.8 Active 592881057 Problem Morbid (severe) obesity due to excess calories E66.01 Active 861092980 Problem 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 Active 116182900 Problem Body mass index (BMI) of 40.0-44.9 in adult Z68.41 Active 445276282 Problem 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 Active 989547968 Problem Chronic tension headaches G44.229 Active 794790746 Problem Chronic pain G89.29 Active 52355242 Problem HTN (hypertension) I10 Active 64146517 Problem 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 Active 22432607 Problem Mitral valve prolapse I34.1 Active 261928566 Problem Anxiety F41.9 Active 09227044 Problem CAD (coronary artery disease) I25.10 Active 99040524 Problem Major depressive disorder, recurrent, moderate F33.1 Active 67620937 Problem Post-traumatic stress disorder, chronic F43.12 Active 743834435 ALLERGIES No Information ENCOUNTERS Encounter Location Date Diagnosis [facility] [address] [facility] [id number] [place] [address] 93137- 7368 Jul, [facility] [id number] [place] [address] 40366- 0744 May, [facility] [id number] [place] [address] 57742- 5258 May, [facility] [id number] [place] [address] 18480- 2830 Apr, Post-traumatic stress disorder, unspecified F43.10 ; Problems related to release from care home Z65.2 ; Anxiety F41.9 and BMI 40.0-44.9 , adult Z68.41 [facility] [id number] [place] [address] 54989- 3942 Apr, [facility] [id number] [place] [address] 76774- 0612 Apr, Left leg pain M79.605 [facility] [address] 19852- 6402 13 Apr, 2017 Post-traumatic stress disorder, unspecified F43.10 ; Major depressive disorder, recurrent, moderate F33.1 and Problems related to release from care home Z65.2 [facility] [id number] [place] [address] 08501- 7014 Apr, [facility] [id number] [place] [address] 33868- 2019 Apr, Chronic pain G89.29 ; 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 ; Morbid (severe) obesity due to excess calories E66.01 ; Anxiety F41.9 and BMI 40.0-44.9, adult Z68.41 [facility] [id number] [place] [address] 16980 -7803 10 Apr, 2017 Sore throat J02.9 and BMI 40.0-44.9, adult Z68.41 [facility] [id number] [place] [address] 20121- 4687 02 Apr, 2017 Left leg pain M79.605 [facility] [address] [place] [address] [id number] 28 Mar, 2017 Dental examination Z01.20 [facility] [address] 83630- 9717 Mar, [facility] [id number] [place] [address] 19932 -6576 Mar, Cough R05 ; Viral gastroenteritis A08.4 and BMI 40.0-44.9, adult Z68.41 [facility] [id number] [place] [address] 09400- 5338 Mar, Left leg pain M79.605 [facility] [address] 75394- 4780 Mar, Post-traumatic stress disorder, unspecified F43.10 ; Major depressive disorder, recurrent, moderate F33.1 and Problems related to release from care home Z65.2 [facility] [id number] [place] [address] 08445- 1838 Feb, Left leg pain M79.605 [facility] [address] 86538- 4187 Feb, [facility] [id number] [place] [address] 07225- 8717 Feb, BMI 40.0-44.9, adult Z68.41 ; Chronic pain syndrome G89.4 ; Migraine without aura and without status migrainosus, not intractable G43.009 ; Mitral valve prolapse I34.1 and 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 [facility] [id number] [place] [address] 25033- 3854 Feb, Post-traumatic stress disorder, chronic F43.12 ; Anxiety F41.9 ; Problems related to release from care home Z65.2 and BMI 40.0-44.9, adult Z68.41 [facility] [id number] [place] [address] 03654- 3096 Feb, Post-traumatic stress disorder, unspecified F43.10 ; Major depressive disorder, recurrent, moderate F33.1 and Problems related to release from care home Z65.2 [facility] [id number] [place] [address] 35779- 3816 Feb, Left leg pain M79.605 [facility] [id number] [place] [address] 07913- 6036 Jan, Post-traumatic stress disorder, unspecified F43.10 ; Major depressive disorder, recurrent, moderate F33.1 and Problems related to release from care home Z65.2 [facility] [id number] [place] [address] 53280- 3716 Jan, [facility] [id number] [place] [address] 41862- 9162 Jan, [facility] [id number] [place] [address] 53542- 2198 Jan, Anxiety F41.9 [facility] [id number] [place] [address] 10910- 2493 Jan, Left leg pain M79.605 [facility] [id number] [place] [address] 864467- 7706 Dec, Left leg pain M79.605 [facility] [id number] [place] [address] 54325- 4306 Dec, [facility] [id number] [place] [address] 527557- 1813 Dec, Post-traumatic stress disorder, unspecified F43.10 ; Major depressive disorder, recurrent, moderate F33.1 and Problems related to release from care home Z65.2 [facility] [id number] [place] [address] 95216- 2611 Nov, Chronic pain G89.29 and Anxiety F41.9 [facility] [id number] [place] [address] 78106- 6011 Nov, Chronic pain G89.29 and Anxiety F41.9 [facility] [id number] [place] [address] 45806- 5516 16 Nov, 2016 Post-traumatic stress disorder, unspecified F43.10 ; Major depressive disorder, recurrent, moderate F33.1 and Problems related to release from care home Z65.2 [facility] [address] 55428- 9725 09 Nov, 2016 Other abnormal findings in specimens from other organs, systems and tissues R89.8 ; Other male erectile dysfunction N52.8 ; Body mass index (BMI) of 40.0-44.9 in adult Z68.41 and Morbid (severe) obesity due to excess calories E66.01 [facility] [id number] [place] [address] 72484- 7058 02 Nov, 2016 Post-traumatic stress disorder, unspecified F43.10 ; Major depressive disorder, recurrent, moderate F33.1 and Problems related to release from care home Z65.2 [facility] [address] [id number] Oct, Dental examination Z01.[address] 11214- 9993 Oct, [facility] [address] 39613- 1135 Oct, Encounter for immunization Z23 [facility] [id number] [place] [address] 12409- 7133 Oct, Chronic pain G89.29 ; Anxiety F41.9 ; Arrhythmia as indication for cardiac pacemaker replacement I49.9 and Glaucoma H40.9 [facility] [id number] [place] [address] 60641- 5869 Oct, Anxiety F41.9 ; Post-traumatic stress disorder, chronic F43.12 and Problems related to release from care home Z65.2 [facility] [id number] [place] [address] 77594- 7495 07 Oct, 2016 Post-traumatic stress disorder, unspecified F43.10 ; Major depressive disorder, recurrent, moderate F33.1 and Problems related to release from care home Z65.2 [facility] [id number] [place] [address] 40285- 3530 Sep, Chronic pain G89.29 and Anxiety F41.9 [facility] [id number] [place] [address] 64896- 1132 Sep, Post-traumatic stress disorder, unspecified F43.10 ; Major depressive disorder, recurrent, moderate F33.1 and Problems related to release from care home Z65.2 [facility] [id number] [place] [address] 98835- 6389 Sep, Post-traumatic stress disorder, unspecified F43.10 ; Major depressive disorder, recurrent, moderate F33.1 and Problems related to release from care home Z65.2 [facility] [id number] [place] [address] 50761- 9335 Sep, Chronic pain G89.29 [facility] [id number] [place] [address] 79377- 1795 Aug, Dental caries, unspecified K02.9 [facility] [id number] [place] [address] 53256- 5912 Aug, Sleep apnea, obstructive G47.33 ; Obesity E66.9 ; Chronic pain G89.29 ; HTN (hypertension) I10 ; Major depressive disorder, recurrent, moderate F33.1 ; Anxiety F41.9 ; Chronic tension headaches G44.229 ; Mitral valve prolapse I34.1 ; Arrhythmia as indication for cardiac pacemaker replacement I49.9 ; Dental caries, unspecified K02.9 ; Primary insomnia F51.01 and Hyperlipidemia E78.5 [place] [id number] [place] [address] 96333- 3440 Aug, Post-traumatic stress disorder, unspecified F43.10 ; Major depressive disorder, recurrent, moderate F33.1 and Problems related to release from care home Z65.2 [facility] [id number] [place] [address] 16990- 3311 Aug, Dental examination Z01.20 [facility] [id number] [id number] 13 Aug, 2016 Dental examination Z01.20 [facility] [id number] [place] [address] 02788- 7209 06 Aug, 2016 Post-traumatic stress disorder, unspecified F43.10 ; Major depressive disorder, recurrent, moderate F33.1 and Problems related to release from care home Z65.2 [facility] [id number] [place] [address] 22593- 6348 05 Aug, 2016 Chronic pain G89.29 and Primary insomnia F51.01 [facility] [id number] [place] [address] 13016- 1281 Jul, [facility] [id number] [place] [address] 80043- 9494 Jul, [facility] [id number] [place] [address] 59482- 1046 Jul, Nausea R11.0 [facility] [id number] [place] [address] 57189- 6083 Jul, Arrhythmia as indication for cardiac pacemaker replacement I49.9 [facility] [id number] [place] [address] 90797- 5473 Jul, Post-traumatic stress disorder, unspecified F43.10 ; Major depressive disorder, recurrent, moderate F33.1 and Problems related to release from care home Z65.2 [facility] [id number] [place] [address] 48226- 2236 09 Jul, 2016 Anxiety F41.9 [facility] [id number] [place] [address] 99279- 0848 08 Jul, 2016 Chronic pain G89.29 [facility] [id number] [place] [address] 30202- 1560 Jul, Sleep apnea, obstructive G47.33 ; Hyperlipidemia E78.5 ; Chronic pain G89.29 ; 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 ; Major depressive disorder, recurrent, moderate F33.1 ; Anxiety F41.9 ; Mitral valve prolapse I34.1 ; Arrhythmia as indication for cardiac pacemaker replacement I49.9 ; Primary insomnia F51.01 ; Bilateral headaches R51 and Environmental allergies Z91.09 [facility] [id number] [place] [address] 49091- 5550 Jul, Post-traumatic stress disorder, unspecified F43.10 ; Major depressive disorder, recurrent, moderate F33.1 and Problems related to release from care home Z65.2 [facility] [address] 87810- 2572 June, Post-traumatic stress disorder, chronic F43.12 ; Anxiety F41.9 ; Problems related to release from care home Z65.2 ; Sleep apnea, obstructive G47.33 and Primary insomnia F51.01 [facility] [id number] [place] [address] 02195- 7114 June, [facility] [id number] [place] [address] 91395- 3958 June, [facility] [address] 80842- 7532 June, [facility] [id number] [place] [address] 96845- 0105 June, Chronic pain G89.29 [facility] [id number] [place] [address] 89888- 7013 June, Chronic pain G89.29 [facility] [id number] [place] [address] 19503- 8157 June, Lipoma of left lower extremity D17.24 ; Open wound T14.8 and Swelling of left lower extremity M79.89 [facility] [id number] [place] [address] 33115- 2722 June, Post-traumatic stress disorder, unspecified F43.10 ; Major depressive disorder, recurrent, moderate F33.1 and Problems related to release from care home Z65.2 [facility] [id number] [place] [address] 93782- 2641 May, Lipoma of left lower extremity D17.24 ; Major depressive disorder, recurrent, moderate F33.1 ; Sleep apnea, obstructive G47.33 ; Hyperlipidemia E78.5 ; Obesity E66.9 ; HTN (hypertension) I10 ; Glaucoma H40.9 ; CAD (coronary artery disease) I25.10 ; Chronic tension headaches G44.229 ; Chronic pain G89.29 ; Anxiety F41.9 ; Nausea R11.0 and Primary insomnia F51.01 [facility] [id number] [place] [address] 45647- 5661 May, [facility] [id number] [place] [address] 26166- 2626 May, Chronic pain G89.29 [facility] [id number] [place] [address] 99265- 8089 May, [facility] [id number] [place] [address] 37792- 8936 Apr, Post-traumatic stress disorder, unspecified F43.10 ; Major depressive disorder, recurrent, moderate F33.1 and Problems related to release from care home Z65.2 [facility] [id number] [place] [address] 72958- 8885 Apr, Primary insomnia F51.01 ; Post-traumatic stress disorder, chronic F43.12 and Problems related to release from care home Z65.2 [facility] [id number] [place] [address] 50048- 7395 Apr, Post-traumatic stress disorder, unspecified F43.10 ; Major depressive disorder, recurrent, moderate F33.1 and Problems related to release from care home Z65.2 [facility] [facility] [id number] [place] [address] 59556- 5003 Apr, [facility] [id number] [place] [address] 88819- 1877 16 Apr, 2016 Sleep apnea, obstructive G47.33 ; Chronic pain G89.29 ; HTN (hypertension) I10 ; Mitral valve prolapse I34.1 ; Shoulder pain, left M25.512 ; Arrhythmia as indication for cardiac pacemaker replacement I49.9 ; Glaucoma H40.9 ; Bilateral headaches R51 ; Environmental allergies Z91.09 ; Primary insomnia F51.01 and Nausea R11.0 [facility] [id number] [place] [address] 34780- 2707 Apr, [facility] [id number] [place] [address] 50504- 7852 Apr, [facility] [id number] [place] [address] 73887- 4694 Apr, Post-traumatic stress disorder, unspecified F43.10 ; Major depressive disorder, recurrent, moderate F33.1 and Problems related to release from care home Z65.2 [facility] [id number] [place] [address] 45528- 9557 Apr, HTN (hypertension) I10 [facility] [id number] [place] [address] 44844- 5102 Apr, HTN (hypertension) I10 [facility] [id number] [place] [address] 54828- 4276 14 Mar, 2016 Chronic pain G89.29 ; Primary insomnia F51.01 and Problems related to release from care home Z65.2 [facility] [id number] [place] [address] 06057- 2741 07 Mar, 2016 Post-traumatic stress disorder, unspecified F43.10 ; Major depressive disorder, recurrent, moderate F33.1 and Problems related to release from care home Z65.2 [facility] [id number] [place] [address]- 4563 Feb, Post-traumatic stress disorder, unspecified F43.10 ; Major depressive disorder, recurrent, moderate F33.1 and Problems related to release from care home Z65.2 [facility] [id number] [place] [address] 29722- 3505 Feb, Chronic tension headaches G44.[address] 82485- 9372 Feb, Sleep apnea, obstructive G47.33 ; Obesity E66.9 ; Hyperlipidemia E78.5 ; Glaucoma H40.9 ; Chronic pain G89.29 ; HTN (hypertension ) I10 ; 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 ; 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 ; Chronic tension headaches G44.229 ; Cough R05 ; CAD (coronary artery disease) I25.10 ; Problems related to release from care home Z65.2 ; Arrhythmia as indication for cardiac pacemaker replacement I49.9 and Primary insomnia F51.[address] 19365- 5511 Feb, Post-traumatic stress disorder, unspecified F43.10 and Chronic pain G89.[address] 63795- 4658 Feb, [facility] [address] [id number] Feb, Dental caries K02.[address] 76626- 7648 Feb, [address] 73248- 7792 Feb, Post-traumatic stress disorder, unspecified F43.10 ; Major depressive disorder, recurrent, moderate F33.1 and Problems related to release from care home Z65.[address] 58746- 4471 Jan, Sleep apnea, obstructive G47.33 and Chronic pain G89.[address] 62746- 4706 Jan, [address] 27776- 0589 Jan, Dental examination Z01.20 [facility] [address] [address]- 2701 Jan, [facility] [id number] [place] [address] 063447- 9563 Jan, [facility] [id number] [place] [address] 87764- 9450 Dec, Post-traumatic stress disorder, unspecified F43.10 ; Major depressive disorder, recurrent, moderate F33.1 and Problems related to release from care home Z65.2 [place] [id number] [place] [address] 02429- 0920 Dec, Encounter for immunization Z23 ; Problems related to release from care home Z65.2 ; Sleep apnea, obstructive G47.33 and Post-traumatic stress disorder, chronic F43.12 [place] [id number] [place] [address] 68853- 5461 Dec, Sleep apnea, obstructive G47.33 ; Hyperlipidemia E78.5 ; Chronic pain G89.29 ; Glaucoma H40.9 ; HTN (hypertension) I10 ; Post-traumatic stress disorder, unspecified F43.10 ; Anxiety F41.9 ; Chronic tension headaches G44.229 ; Mitral valve prolapse I34.1 and CAD (coronary artery disease) I25.10 [address] [address]- 0175 Dec, Post-traumatic stress disorder, unspecified F43.10 ; Major depressive disorder, recurrent, moderate F33.1 and Problems related to release from care home Z65.2 [facility] [address] [address]- 2002 Nov, Chronic pain G89.29 [place] [id number] [place] [address] 21400- 2708 Nov, Post-traumatic stress disorder, unspecified F43.10 ; Major depressive disorder, recurrent, moderate F33.1 and Problems related to release from care home Z65.[address] [id number] [address]- 7168 Oct, [facility] [id number] [place] [address] 88146- 2664 Oct, [facility] [id number] [place] [address] 42963- 5106 Oct, Post-traumatic stress disorder, unspecified F43.10 ; Major depressive disorder, recurrent, moderate F33.1 and Problems related to release from care home Z65.2 [facility] [id number] [place] [address] 18667- 4797 08 Oct, 2015 [facility] [id number] [place] [address] 23005- 8830 07 Oct, 2015 Environmental allergies Z91.09 ; Cough R05 and 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 [place] [id number] [place] [address] 45359- 5272 Sep, [facility] [id number] [place] [address] 70163- 3135 Sep, Post-traumatic stress disorder, unspecified F43.10 ; Major depressive disorder, recurrent, moderate F33.1 and Problems related to release from care home Z65.2 [facility] [address] [place] [address] 42954- 8140 Sep, Chronic pain G89.29 [facility] [id number] [place] [address] 73528- 1798 Sep, Pain in left shoulder M25.512 ; Pain in right shoulder M25.511 and Other chronic pain G89.29 [facility] [id number] [place] [address] 59593- 7182 Sep, [facility] [id number] [place] [address] 89388- 7212 Sep, [facility] [id number] [place] [address] 08705- 1763 Sep, [facility] [id number] [address] Aug, Dental examination Z01.20 [facility] [id number] [place] [address] 52332- 6332 Aug, Post-traumatic stress disorder, unspecified F43.10 ; Open- angle glaucoma of both 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 and Problems related to release from care home Z65.2 [facility] [id number] [place] [address] 83192- 1782 Aug, [facility] [id number] [place] [address] 81950- 1467 Aug, Sleep apnea, obstructive G47.33 ; Obesity E66.9 ; Hyperlipidemia E78.5 ; Bilateral headaches R51 ; HTN (hypertension) I10 ; Post- traumatic stress disorder, unspecified F43.10 ; Anxiety F41.9 ; Neuropathy G62.9 ; Glaucoma H40.9 and Chronic pain G89.29 [facility] [address] [place] [address] [id number] Aug, Encounter for dental examination Z01.20 [place] [id number] [place] [address] 67758- 2555 Aug, Post-traumatic stress disorder, unspecified F43.10 ; Major depressive disorder, recurrent, moderate F33.1 and Problems related to release from care home Z65.2 [place] [address] [address]- 6067 Aug, [facility] [id number] [place] [address] 20897- 2694 Jul, [place] [id number] [place] [address] 00562- 4548 Jul, Post-traumatic stress disorder, unspecified F43.10 and Major depressive disorder, recurrent, moderate F33.1 [place] [id number] [place] [address] 36351- 8282 Jul, [place] [address] [address]- 3970 Jul, [facility] [id number] [place] [address] 77888- 9164 Jul, Chronic pain G89.29 [facility] [address], [place] [address]- 7296 June, Post-traumatic stress disorder, unspecified F43.10 and Major depressive disorder, recurrent, moderate F33.1 [facility] [address] [address]- 9458 June, [facility] [id number] [place] [address] 48328- 6531 June, Chronic pain G89.29 [facility] [id number] [address] June, Post-traumatic stress disorder, unspecified F43.10 and Major depressive disorder, recurrent, moderate F33.1 [facility] [address], [place] [address] May, Post-traumatic stress disorder, unspecified F43.10 and Major depressive disorder, recurrent, moderate F33.1 [facility] [id number], [place] [address] May, [facility] [id number], [place] [address] May, [facility] [address], [place] [address] May, [facility] [id number] [place] [address] 24439- 8569 Apr, [facility] [address], [place] [address] Apr, Post-traumatic stress disorder, unspecified F43.10 and Sleep apnea, obstructive G47.33 [facility] [id number], [place] [address] 31 Apr, 2015 [facility] [id number] [place] [address] 02187- 3278 21 Apr, 2015 Shoulder pain, left M25.512 [facility] [id number] [place] [address] 86733- 6880 18 Apr, 2015 Post-traumatic stress disorder, unspecified F43.10 and Major depressive disorder, recurrent, moderate F33.1 [facility] [id number] [place] [address] 27335- 2106 17 Apr, 2015 [facility] [id number] [place] [address] 48608- 0498 11 Apr, 2015 [facility] [id number] [place] [address] 85223- 4457 08 Apr, 2015 [facility] [id number] [place] [address] 10208- 3638 07 Apr, 2015 Left shoulder pain M25.512 [facility] [id number] [place] [address] 44511- 1282 Mar, [facility] [id number] [place] [address] 73467- 9492 Mar, [facility] [id number] [place] [address] 46120- 3881 18 Mar, 2015 [facility] [id number] [place] [address] 11025- 0004 12 Mar, 2015 Sleep apnea, obstructive G47.33 ; Obesity E66.9 ; Chronic pain G89.29 ; Hyperlipidemia E78.5 ; HTN (hypertension) I10 ; 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 ; Major depressive disorder, recurrent, moderate F33.1 and Anxiety F41.9 [facility] [id number] [place] [address] 31804- 9135 11 Mar, 2015 [facility] [id number] [place] [address] 97910- 7004 Mar, Post-traumatic stress disorder, unspecified F43.10 and Major depressive disorder, recurrent, moderate F33.1 [facility] [id number] [place] [address] 04978- 2594 08 Mar, 2015 [facility] [id number] [place] [address] 95236- 0980 04 Mar, 2015 HTN (hypertension) I10 ; 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 ; Obesity E66.9 ; Hyperlipidemia E78.5 ; Glaucoma H40.9 ; Chronic pain G89.29 and CAD (coronary artery disease) I25.10 [facility] [id number] [place] [address] 90776- 3312 Feb, [facility] [id number] [place] [address] 38109- 4026 Feb, Post-traumatic stress disorder, unspecified F43.10 ; Obesity E66.9 ; Sleep apnea, obstructive G47.33 and 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 [facility] [id number] [place] [address] 71709- 2877 Feb, Post-traumatic stress disorder, unspecified F43.10 and Major depressive disorder, recurrent, moderate F33.1 [facility] [id number] [place] [address] 03033- 4962 Feb, [facility] [id number] [place] [address] 82224- 4212 Feb, [facility] [id number] [place] [address] 70119- 7904 Feb, HTN (hypertension) I10 ; Post-traumatic stress disorder, unspecified F43.10 ; 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 ; Obesity E66.9 ; Hyperlipidemia E78.5 ; Chronic pain G89.29 ; Glaucoma H40.9 ; Mitral valve prolapse I34.1 and Bilateral headaches R51 [id number] [place] [address] 40444- 1555 Feb, [facility] [id number], [place] [address] Feb, Post-traumatic stress disorder, unspecified F43.10 and Major depressive disorder, recurrent, moderate F33.1 [facility] [id number], [place] [address] 9[address] Feb, [facility] [id number] [place] [address] 99813- 7015 Feb, [facility] [id number] [place] [address] 62772- 1748 Jan, [facility] [id number] [place] [address] 99747- 9005 Jan, [facility] [id number] [place] [address] 31966- 7786 Jan, Obesity E66.9 ; HTN (hypertension) I10 ; 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 ; Major depressive disorder, recurrent, moderate F33.1 ; Glaucoma H40.9 ; Hyperlipidemia E78.5 ; Sleep apnea, obstructive G47.33 ; Chronic pain G89.29 ; Anxiety F41.9 ; Chronic tension headaches G44.229 and Cough R05 [facility] [address], [place] [address] 4[address] Jan, [facility] [id number] [place] [address] 47929- 8138 Jan, [facility] [id number] [place] [address] 39472- 9979 Jan, Post-traumatic stress disorder, unspecified F43.10 ; Obesity E66.9 ; Sleep apnea, obstructive G47.33 and 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 [facility] [address], [place] [address]- 7670 Jan, [facility] [id number] [place] [address] 85003- 9544 Jan, Post-traumatic stress disorder, unspecified F43.10 and Major depressive disorder, recurrent, moderate F33.1 [facility] [address] [address]- [address] Dec, [facility] [address] [address]- [address]99 Dec, Sleep apnea, obstructive G47.33 ; Obesity E66.9 ; Hyperlipidemia E78.5 ; Glaucoma H40.9 ; Chronic pain G89.29 ; HTN (hypertension ) I10 ; 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 ; Anxiety F41.9 and CAD (coronary artery disease) I25.10 [facility] [address] [address]155- 2788 Nov, [facility] [address] 75240- 9151 Nov, [facility] [address] [place] [address] 25740- 6837 Nov, [facility] [address] 46476- 9848 Nov, [facility] [address] [place] [address] 95170- 2530 Nov, [facility] [address] [place] [address] 61883- 2016 Nov, Encounter for immunization Z23 ; Sleep apnea, obstructive G47.33 ; Obesity E66.9 ; Hyperlipidemia E78.5 ; Glaucoma H40.9 ; Chronic pain G89.29 ; Anxiety F41.9 ; Chronic tension headaches G44.229 and HTN (hypertension ) I10 [facility] [address] [place] [address] 34563- 1210 Nov, [facility] [address] [place] [address] 13290- 3236 Nov, [facility] [address] [place] [address] 78184- 1758 Nov, Dizziness R42 [facility] [address], [place] [address]- 2457 Nov, [facility] [id number] [place] [address] 12184- 2057 Oct, [facility] [id number] [place] [address] 25042- 7582 Oct, [facility] [id number] [place] [address] 66297- 2976 Oct, [facility] [id number] [place] [address] 69611- 6666 Oct, [facility] [id number] [place] [address] 18236- 8350 Oct, Dizziness 780.4 ; Essential hypertension 401.9 ; Obesity 278.00 ; Hyperlipidemia 272.4 ; Chronic pain 338.29 ; Glaucoma 365.9 and Anxiety 300.00 [facility] [id number] [place] [address] 16295- 0994 Oct, Essential hypertension 401.9 ; Hyperlipidemia 272.4 ; Glaucoma 365.9 ; Obesity 278.00 ; Chronic pain 338.29 and Allergy to insects V15.06 [facility] [address], [place] [address]- 7227 Sep, [facility] [id number] [place] [address] 07955- 3962 Sep, [facility] [id number] [place] [address] 37577- 8982 Sep, [facility] [id number] [place] [address] 10679- 4978 Sep, [facility] [id number] [place] [address] 84514- 8364 Aug, Essential hypertension 401.9 ; Obesity 278.00 ; Hyperlipidemia 272.4 ; Glaucoma 365.9 ; Lipoma 214.9 ; Mitral valve prolapse 424.0 ; Angina at rest 413.9 ; Lymphedema 457.1 and Chronic pain 338.29 IMMUNIZATIONS No Known Immunizations SOCIAL HISTORY Never Assessed REASON FOR VISIT f/u PLAN OF CARE Activity Details Follow Up Every 2 weeks, 1/2 to 1 hour, as available. Reason: VITAL SIGNS MEDICATIONS Unknown Medications RESULTS No Results PROCEDURES Procedure Date Ordered Result Body Site Psychotherapy, patient &/family, 45 minutes, established patient August 13, 2016 INSTRUCTIONS MEDICATIONS ADMINISTERED No Known Medications [...]
--- OUTSIDE RECORDS SUMMARY | 2018-02-04 13:48 | XMS REPORT ---
Author Author TRENT Arreguin [facility] Address Unknown Care Team Providers Care Aquatic Facility Manager Name Role Phone TRENT Arreguin Unavailable PROBLEMS Type Condition ICD9-CM Code SIV15-UU Code Onset Dates Condition Status SNOMED Code Problem CAD (coronary artery disease) I25.10 Active 02348400 Problem Encounter for dental examination Z01.20 Active 053804907 Problem Shoulder pain, left M25.512 Active 84046407 Problem Post-traumatic stress disorder, unspecified F43.10 Active 32972911 Problem Hyperlipidemia E78.5 Active 72088182 Problem Primary insomnia F51.01 Active 0770532 Problem Obesity E66.9 Active 057919514 Problem Chronic pain G89.29 Active 64957974 Problem Post-traumatic stress disorder, chronic F43.12 Active 930220366 Problem Bilateral headaches R51 Active 590770642 Problem Arrhythmia as indication for cardiac pacemaker replacement I49.9 Active 28691883 Problem Environmental allergies Z91.09 Active 426635832 Problem 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 Active 939298682 Problem HTN (hypertension) I10 Active 70688642 Problem Glaucoma H40.9 Active 09577562 Problem Problems related to release from nursing home Z65.2 Active 83741842 Problem Anxiety F41.9 Active 62135254 Problem Major depressive disorder, recurrent, moderate F33.1 Active 11909892 Problem Chronic tension headaches G44.229 Active 941941840 Problem 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 Active 83096341 Problem Sleep apnea, obstructive G47.33 Active 68522521 Problem Cough R05 Active 91607740 Problem Mitral valve prolapse I34.1 Active 279566496 ALLERGIES Substance Reaction Event Type Date Status Penicillin G Potassium rash Drug Allergy Jan, Active Aspirin nausea and vomiting Drug Allergy Jan, Active Wasp venom anaphylaxis Non Drug Allergy Jan, Active SOCIAL HISTORY No smoking Hx information available PLAN OF CARE Activity Details Follow Up prn Reason:te #4 VITAL SIGNS Height 67 in 2016-01-22 Blood pressure systolic 132 mmHg 2016-01-22 Blood pressure diastolic 83 mmHg 2016-01-22 MEDICATIONS Medication Instructions Dosage Frequency Start Date End Date Duration Status Topamax 100 MG Orally Twice a day 1 tablet 12h Aug, Active Xanax 1 MG Orally for anxiety 1/2 tab in AM and 1 tab at bedtime Feb, Active Gabapentin 300 MG Orally 2 times a day 1 tablet 12h Active Furosemide 40 MG TAKE ONE TABLET BY MOUTH ONCE DAILY 90 Active Ambien 10 mg Orally Once a day 1 tablet at bedtime as needed 24h Dec, Active Ambien 10 mg Orally Once at bedtime for sleep 1/2 to 1 tablet Jan, Active Hydrocodone-Acetaminophen 7.5-325 MG Orally every 6 hrs 1 tablet as needed 6h 18 Dec, 2015 Active Meclizine HCl 25 MG Orally PRN 1 tablet as needed Oct, Active EPINEPHrine HCl 0.3 mg as directed Oct, Active Nitrostat 0.4 MG Sublingual PRN Instill Active Xalatan 0.005 % Ophthalmic Once a day 1 drop into each eye in the evening 24h Oct, Active Zolpidem Tartrate 10 MG TAKE ONE-HALF TO ONE TABLET BY MOUTH AT BEDTIME FOR SLEEP 30 Active Clindamycin HCl 150 MG Orally 3 times a day 1 capsule 8h Jan, Jan, 7 days Active Timolol 0.5 % Ophthalmic Once a day 1 drop into affected eye 24h 20 Dec, 2014 Active RESULTS No Results PROCEDURES Procedure Date Ordered Related Diagnosis Body Site LTD ORAL EVALUATION - PROBLEM FOCUS Jan 22, 2016 INTRAORL-PERIAPICAL 1 FILM 54524 Jan 22, 2016 IMMUNIZATIONS No Known Immunizations
--- OUTSIDE RECORDS SUMMARY | 2018-02-04 13:49 | XMS REPORT ---
Author Author CJ EDGE Organization [facility] Address [address] [place] [address] Care Team Providers Care Cyber Operator Name Role Phone CJ EDGE Unavailable PROBLEMS Type Condition ICD9-CM Code [id number] Code Onset Dates Condition Status SNOMED Code Problem Environmental allergies Z91.09 Active 595771697 Problem Primary insomnia F51.01 Active 0219707 Problem Arrhythmia as indication for cardiac pacemaker replacement I49.9 Active 65622968 Problem Chronic pain syndrome G89.4 Active 316458268 Problem Sleep apnea, obstructive G47.33 Active 20280149 Problem Migraine without aura and without status migrainosus, not intractable G43.009 Active 067197855 Problem Hyperlipidemia E78.5 Active 36964814 Problem Myocarditis, unspecified chronicity, 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 Active 09202969 Problem Other male erectile dysfunction N52.8 Active 026741378 Problem Morbid (severe) obesity due to excess calories E66.01 Active 622542707 Problem 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 Active 741050014 Problem Body mass index (BMI) of 40.0-44.9 in adult Z68.41 Active 251173953 Problem 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 Active 516238536 Problem Chronic tension headaches G44.229 Active 888329636 Problem Chronic pain G89.29 Active 12000946 Problem HTN (hypertension) I10 Active 65543090 Problem 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 Active 92973065 Problem Mitral valve prolapse I34.1 Active 063346343 Problem Anxiety F41.9 Active 72451646 Problem CAD (coronary artery disease) I25.10 Active 06664472 Problem Major depressive disorder, recurrent, moderate F33.1 Active 20212640 Problem Post-traumatic stress disorder, chronic F43.12 Active 922750208 ALLERGIES No Information ENCOUNTERS Encounter Location Date Diagnosis [facility] [address] [facility] [id number] [place] [address] 95523- 8927 Jul, [facility] [address] [address] Jul, [facility] [id number] [place] [address] 33265- 2509 June, [facility] [id number] [place] [address] 00894- 0258 May, [facility] [address] [place] [id number] [place] [address] 58445- 2966 May, [facility] [id number] [place] [address] 93650- 1051 May, [facility] [address] [place] [id number] [place] [address] 26513- 0261 May, Left leg pain M79.605 [facility] [address] [place] [id number] [place] [address] 36345- 3478 May, Post-traumatic stress disorder, unspecified F43.10 ; Major depressive disorder, recurrent, moderate F33.1 and Problems related to release from correction Z65.2 [place] [address] [place] [id number] [place] [address] 46950- 8160 May, Chronic pain G89.29 ; Anxiety F41.9 and Chest pain, unspecified type R07.9 [facility] [id number] [place] [address] 31582- 1062 Apr, [facility] [address] [id number] [place] [address] 43433- 8891 Apr, Left leg pain M79.605 [facility] [address] [id number] [place] [address] 23191- 1531 Apr, Post-traumatic stress disorder, unspecified F43.10 ; Problems related to release from correction Z65.2 ; Anxiety F41.9 and BMI 40.0-44.9 , adult Z68.41 [facility] [address] [id number] [place] [address] 50447- 1153 Apr, [place] [address] 38307- 7972 Apr, Left leg pain M79.605 [place] [address] 79354- 7811 13 Apr, 2017 Post-traumatic stress disorder, unspecified F43.10 ; Major depressive disorder, recurrent, moderate F33.1 and Problems related to release from correction Z65.2 [place] [address] 55127- 6706 12 Apr, 2017 [place] [address] 01856- 5103 12 Apr, 2017 Chronic pain G89.29 ; 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 ; Morbid (severe) obesity due to excess calories E66.01 ; Anxiety F41.9 and BMI 40.0-44.9, adult Z68.41 [facility] [place] [address] [address] -4025 10 Apr, 2017 Sore throat J02.9 and BMI 40.0-44.9, adult Z68.41 [place] [address] 20369- 7217 02 Apr, 2017 Left leg pain M79.605 [facility] [address] [id number] Mar, Dental examination Z01.20 [place] [address] 80631- 5645 Mar, [facility] [address] 03549 -5329 20 Mar, 2017 Cough R05 ; Viral gastroenteritis A08.4 and BMI 40.0-44.9, adult Z68.41 [place] [address] 93801- 9853 19 Mar, 2017 Left leg pain M79.605 [place] [id number] [place] [address] 41998- 1372 Mar, Post-traumatic stress disorder, unspecified F43.10 ; Major depressive disorder, recurrent, moderate F33.1 and Problems related to release from correction Z65.2 [place] [address] [place] [id number] [place] [address] 41029- 4591 Feb, Left leg pain M79.605 [place] [address] [place] [id number] [place] [address] 77063- 2655 Feb, [place] [address] [place] [id number] [place] [address] 99751- 1849 Feb, BMI 40.0-44.9, adult Z68.41 ; Chronic pain syndrome G89.4 ; Migraine without aura and without status migrainosus, not intractable G43.009 ; Mitral valve prolapse I34.1 and 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 [place] [id number] [place] [address] 34926- 7472 Feb, Post-traumatic stress disorder, chronic F43.12 ; Anxiety F41.9 ; Problems related to release from correction Z65.2 and BMI 40.0-44.9, adult Z68.41 [place] [address] [place] [id number] [place] [address] 63580- 5616 Feb, Post-traumatic stress disorder, unspecified F43.10 ; Major depressive disorder, recurrent, moderate F33.1 and Problems related to release from correction Z65.2 [place] [address] [place] [address] 09629- 4385 Feb, Left leg pain M79.605 [place] [address] [place] [id number] [place] [address] 25180- 8669 Jan, Post-traumatic stress disorder, unspecified F43.10 ; Major depressive disorder, recurrent, moderate F33.1 and Problems related to release from correction Z65.2 [place] [address] [place] [id number] [place] [address] 17083- 6186 Jan, [facility] [address] [address] 0626 Jan, [facility] [id number] [place] [address] 06261- 0137 Jan, Anxiety F41.9 [facility] [id number] [place] [address] 70580- 4201 Jan, Left leg pain M79.605 [facility] [address] [id number] [place] [address] 39213- 4750 Dec, Left leg pain M79.605 [facility] [address] [place] [id number] [place] [address] 84704- 1663 Dec, [facility] [id number] [place] [address] 02933- 7528 15 Dec, 2016 Post-traumatic stress disorder, unspecified F43.10 ; Major depressive disorder, recurrent, moderate F33.1 and Problems related to release from correction Z65.2 [facility] [id number] [place] [address] 75360- 8127 31 Nov, 2016 Chronic pain G89.29 and Anxiety F41.9 [facility] [id number] [place] [address] 53079- 2878 24 Nov, 2016 Chronic pain G89.29 and Anxiety F41.9 [facility] [id number] [place] [address] 71116- 8377 16 Nov, 2016 Post-traumatic stress disorder, unspecified F43.10 ; Major depressive disorder, recurrent, moderate F33.1 and Problems related to release from correction Z65.2 [facility] [id number] [place] [address] 50224- 5768 09 Nov, 2016 Other abnormal findings in specimens from other organs, systems and tissues R89.8 ; Other male erectile dysfunction N52.8 ; Body mass index (BMI) of 40.0-44.9 in adult Z68.41 and Morbid (severe) obesity due to excess calories E66.01 [place] [address] [address]- 7071 02 Nov, 2016 Post-traumatic stress disorder, unspecified F43.10 ; Major depressive disorder, recurrent, moderate F33.1 and Problems related to release from correction Z65.2 [facility] [address] [place] [id number] [id number] 29 Oct, 2016 Dental examination Z01.20 [place] [address] [place] [id number] [place] [address] 04290- 7874 28 Oct, 2016 [place] [address] [place] [id number] [place] [address] 31497- 0303 Oct, Encounter for immunization Z23 [place] [address] [place] [id number] [place] [address] 56014- 6683 Oct, Chronic pain G89.29 ; Anxiety F41.9 ; Arrhythmia as indication for cardiac pacemaker replacement I49.9 and Glaucoma H40.9 [place] [id number] [place] [address] 66122- 4558 Oct, Anxiety F41.9 ; Post-traumatic stress disorder, chronic F43.12 and Problems related to release from correction Z65.2 [place] [address] [place] [address] 28862- 5621 07 Oct, 2016 Post-traumatic stress disorder, unspecified F43.10 ; Major depressive disorder, recurrent, moderate F33.1 and Problems related to release from correction Z65.2 [place] [id number] [place] [address] 41299- 4448 Sep, Chronic pain G89.29 and Anxiety F41.9 [place] [address] [place] [id number] [place] [address] 81099- 0988 Sep, Post-traumatic stress disorder, unspecified F43.10 ; Major depressive disorder, recurrent, moderate F33.1 and Problems related to release from correction Z65.2 [place] [address] [place] [id number] [place] [address] 61253- 4955 Sep, Post-traumatic stress disorder, unspecified F43.10 ; Major depressive disorder, recurrent, moderate F33.1 and Problems related to release from correction Z65.2 [place] [id number] [place] [address] 55991- 8284 Sep, Chronic pain G89.29 [place] [address] [address]- 6871 Aug, Dental caries, unspecified K02.9 [place] [address] [place] [id number] [place] [address] 47737- 6516 Aug, Sleep apnea, obstructive G47.33 ; Obesity E66.9 ; Chronic pain G89.29 ; HTN (hypertension) I10 ; Major depressive disorder, recurrent, moderate F33.1 ; Anxiety F41.9 ; Chronic tension headaches G44.229 ; Mitral valve prolapse I34.1 ; Arrhythmia as indication for cardiac pacemaker replacement I49.9 ; Dental caries, unspecified K02.9 ; Primary insomnia F51.01 and Hyperlipidemia E78.5 [place] [address] [place] [id number] [place] [address] 69877- 9546 Aug, Post-traumatic stress disorder, unspecified F43.10 ; Major depressive disorder, recurrent, moderate F33.1 and Problems related to release from correction Z65.2 [place] [address] [address]- 6968 Aug, Dental examination Z01.20 [facility] [id number] [place] [address] [id number] Aug, Dental examination Z01.20 [facility] [id number] [place] [address] 90293- 4632 Aug, Post-traumatic stress disorder, unspecified F43.10 ; Major depressive disorder, recurrent, moderate F33.1 and Problems related to release from correction Z65.2 [place] [address] [address]- 0535 Aug, Chronic pain G89.29 and Primary insomnia F51.01 [place] [id number] [place] [address] 14823- 6620 Jul, [place] [address] [place] [id number] [place] [address] 91890- 6669 Jul, [place] [address] [place] [id number] [place] [address] 49278- 0209 Jul, Nausea R11.0 [place] [address] [place] [id number] [place] [address] 59571- 4395 Jul, Arrhythmia as indication for cardiac pacemaker replacement I49.9 [place] [address] [place] [id number] [place] [address] 23816- 8430 Jul, Post-traumatic stress disorder, unspecified F43.10 ; Major depressive disorder, recurrent, moderate F33.1 and Problems related to release from correction Z65.2 [place] [address] [place] [id number] [place] [address] 00699- 2297 Jul, Anxiety F41.9 [place] [address] [place] [id number] [place] [address] 66139- 2799 08 Jul, 2016 Chronic pain G89.29 [place] [id number] [place] [address] 02724- 5163 Jul, Sleep apnea, obstructive G47.33 ; Hyperlipidemia E78.5 ; Chronic pain G89.29 ; 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 ; Major depressive disorder, recurrent, moderate F33.1 ; Anxiety F41.9 ; Mitral valve prolapse I34.1 ; Arrhythmia as indication for cardiac pacemaker replacement I49.9 ; Primary insomnia F51.01 ; Bilateral headaches R51 and Environmental allergies Z91.09 [place] [address] [place] [id number] [place] [address] 07314- 4066 Jul, Post-traumatic stress disorder, unspecified F43.10 ; Major depressive disorder, recurrent, moderate F33.1 and Problems related to release from correction Z65.2 [place] [address] [place] [id number] [place] [address] 04774- 6460 June, Post-traumatic stress disorder, chronic F43.12 ; Anxiety F41.9 ; Problems related to release from correction Z65.2 ; Sleep apnea, obstructive G47.33 and Primary insomnia F51.01 [place] [address] [place] [id number] [place] [address] 17675- 3265 June, [place] [address] [place] [id number] [place] [address] 04298- 9389 June, [place] [address] 51674- 5938 June, [place] [address] 27276- 7192 June, Chronic pain G89.29 [place] [address] [place] [id number] [place] [address] 05739- 8878 June, Chronic pain G89.29 [place] [address] 71822- 5296 June, Lipoma of left lower extremity D17.24 ; Open wound T14.8 and Swelling of left lower extremity M79.89 [place] [address] [place] [id number] [place] [address] 55771- 1944 June, Post-traumatic stress disorder, unspecified F43.10 ; Major depressive disorder, recurrent, moderate F33.1 and Problems related to release from correction Z65.2 [place] [address] [place] [id number] [place] [address] 86420- 0677 May, Lipoma of left lower extremity D17.24 ; Major depressive disorder, recurrent, moderate F33.1 ; Sleep apnea, obstructive G47.33 ; Hyperlipidemia E78.5 ; Obesity E66.9 ; HTN (hypertension) I10 ; Glaucoma H40.9 ; CAD (coronary artery disease) I25.10 ; Chronic tension headaches G44.229 ; Chronic pain G89.29 ; Anxiety F41.9 ; Nausea R11.0 and Primary insomnia F51.01 [place] [address] [place] [id number] [place] [address] 73042- 1981 May, [place] [id number] [place] [address] 61200- 3907 May, Chronic pain G89.29 [place] [address] [place] [id number] [place] [address] 07292- 2090 May, [place] [address] [place] [id number] [place] [address] 88751- 1485 31 Apr, 2016 Post-traumatic stress disorder, unspecified F43.10 ; Major depressive disorder, recurrent, moderate F33.1 and Problems related to release from correction Z65.2 [place] [id number] [place] [address] 59476- 8762 28 Apr, 2016 Primary insomnia F51.01 ; Post-traumatic stress disorder, chronic F43.12 and Problems related to release from correction Z65.2 [place] [id number] [place] [address] 41186- 5775 17 Apr, 2016 Post-traumatic stress disorder, unspecified F43.10 ; Major depressive disorder, recurrent, moderate F33.1 and Problems related to release from correction Z65.2 [place] [id number] [place] [address] 41950- 0430 16 Apr, 2016 [place] [id number] [place] [address] 59677- 9426 16 Apr, 2016 Sleep apnea, obstructive G47.33 ; Chronic pain G89.29 ; HTN (hypertension) I10 ; Mitral valve prolapse I34.1 ; Shoulder pain, left M25.512 ; Arrhythmia as indication for cardiac pacemaker replacement I49.9 ; Glaucoma H40.9 ; Bilateral headaches R51 ; Environmental allergies Z91.09 ; Primary insomnia F51.01 and Nausea R11.0 [place] [id number] [place] [address] 26767- 4201 Apr, [place] [id number] [place] [address] 44368- 1635 Apr, [place] [id number] [place] [address] 05142- 5276 Apr, Post-traumatic stress disorder, unspecified F43.10 ; Major depressive disorder, recurrent, moderate F33.1 and Problems related to release from correction Z65.2 [place] [address] [place] [id number] [place] [address] 78933- 1812 Apr, HTN (hypertension) I10 [place] [address] [place] [id number] [place] [address] 067413- 3557 Apr, HTN (hypertension) I10 [place] [address] [place] [id number] [place] [address] 48668- 4604 Mar, Chronic pain G89.29 ; Primary insomnia F51.01 and Problems related to release from correction Z65.2 [place] [address] [place] [id number] [place] [address] 49636- 1033 Mar, Post-traumatic stress disorder, unspecified F43.10 ; Major depressive disorder, recurrent, moderate F33.1 and Problems related to release from correction Z65.2 [place] [address] [place] [id number] [place] [address] 22704- 2073 Feb, Post-traumatic stress disorder, unspecified F43.10 ; Major depressive disorder, recurrent, moderate F33.1 and Problems related to release from correction Z65.2 [place] [address] [place] [id number] [place] [address] 53105- 0204 Feb, Chronic tension headaches G44.229 [place] [address] [place] [id number] [place] [address] 31864- 3296 Feb, Sleep apnea, obstructive G47.33 ; Obesity E66.9 ; Hyperlipidemia E78.5 ; Glaucoma H40.9 ; Chronic pain G89.29 ; HTN (hypertension ) I10 ; 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 ; 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 ; Chronic tension headaches G44.229 ; Cough R05 ; CAD (coronary artery disease) I25.10 ; Problems related to release from correction Z65.2 ; Arrhythmia as indication for cardiac pacemaker replacement I49.9 and Primary insomnia F51.01 [facility] [address] [place] [address] 82097- 0209 17 Feb, 2016 Post-traumatic stress disorder, unspecified F43.10 and Chronic pain G89.29 [facility] [address] [id number] [place] [address] 93272- 2525 Feb, [facility] [address] [id number] [place] [address] [id number] Feb, Dental caries K02.9 [place] [address] [place] [id number] [place] [address] 76476- 3875 Feb, [place] [address] [place] [id number] [place] [address] 86696- 2571 Feb, Post-traumatic stress disorder, unspecified F43.10 ; Major depressive disorder, recurrent, moderate F33.1 and Problems related to release from correction Z65.2 [place] [address] [place] [id number] [place] [address] 32973- 5671 Jan, Sleep apnea, obstructive G47.33 and Chronic pain G89.29 [place] [address] [place] [id number] [place] [address] 03111- 7767 Jan, [place] [address] [place] [id number] [place] [address] 81085- 0711 Jan, Dental examination Z01.20 [place] [address] [place] [id number] [place] [address] 51239- 4888 Jan, [place] [address] [place] [id number] [place] [address] 99483- 3163 Jan, [place] [address] [place] [id number] [place] [address] 03125- 6596 Dec, Post-traumatic stress disorder, unspecified F43.10 ; Major depressive disorder, recurrent, moderate F33.1 and Problems related to release from correction Z65.2 [place] [address] [place] [id number] [place] [address] 10822- 6522 Dec, Encounter for immunization Z23 ; Problems related to release from correction Z65.2 ; Sleep apnea, obstructive G47.33 and Post-traumatic stress disorder, chronic F43.12 [place] [address] [place] [id number] [place] [address] 81238- 0272 Dec, Sleep apnea, obstructive G47.33 ; Hyperlipidemia E78.5 ; Chronic pain G89.29 ; Glaucoma H40.9 ; HTN (hypertension) I10 ; Post-traumatic stress disorder, unspecified F43.10 ; Anxiety F41.9 ; Chronic tension headaches G44.229 ; Mitral valve prolapse I34.1 and CAD (coronary artery disease) I25.10 [place] [address] [place] [id number] [place] [address] 57337- 7998 Dec, Post-traumatic stress disorder, unspecified F43.10 ; Major depressive disorder, recurrent, moderate F33.1 and Problems related to release from correction Z65.2 [place] [address] [place] [id number] [place] [address] 43751- 9270 Nov, Chronic pain G89.29 [place] [address] [place] [id number] [place] [address] 20014- 1034 Nov, Post-traumatic stress disorder, unspecified F43.10 ; Major depressive disorder, recurrent, moderate F33.1 and Problems related to release from correction Z65.2 [place] [address] [place] [address] [address]- 9133 Oct, [place] [address] [place] [id number] [place] [address] 80248- 3887 Oct, [place] [address] [place] [id number] [place] [address] 91786- 2676 16 Oct, 2015 Post-traumatic stress disorder, unspecified F43.10 ; Major depressive disorder, recurrent, moderate F33.1 and Problems related to release from correction Z65.2 [place] [address] [place] [id number] [place] [address] 87993- 8860 Oct, [place] [address] [place] [address]- 5292 Oct, Environmental allergies Z91.09 ; Cough R05 and 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 [facility] [address] [id number] [place] [address] 76628- 5868 Sep, [facility] [address] [id number] [place] [address] 47980- 3642 Sep, Post-traumatic stress disorder, unspecified F43.10 ; Major depressive disorder, recurrent, moderate F33.1 and Problems related to release from correction Z65.2 [facility] [address] [id number] [place] [address] 05460- 2934 Sep, Chronic pain G89.29 [facility] [address] [place] [id number] [place] [address] 42269- 2009 Sep, Other chronic pain G89.29 ; Pain in right shoulder M25.511 and Pain in left shoulder M25.512 [facility] [address] [id number] [place] [address] 57360- 4434 Sep, [facility] [address] [place] [id number] [place] [address] 02302- 3253 Sep, [facility] [address] [id number] [place] [address] 11378- 9994 Sep, [facility] [address] [place] [address] [id number] Aug, Dental examination Z01.20 [facility] [address] [id number] [place] [address] 75382- 7273 Aug, Post-traumatic stress disorder, unspecified F43.10 ; Open- angle glaucoma of both 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 and Problems related to release from correction Z65.2 [facility] [address] [id number] [place] [address] 77002- 2446 Aug, [facility] [address] [id number] [place] [address] 63463- 6018 Aug, Sleep apnea, obstructive G47.33 ; Obesity E66.9 ; Hyperlipidemia E78.5 ; Bilateral headaches R51 ; HTN (hypertension) I10 ; Post- traumatic stress disorder, unspecified F43.10 ; Anxiety F41.9 ; Neuropathy G62.9 ; Glaucoma H40.9 and Chronic pain G89.29 [facility] [address] [id number] Aug, Encounter for dental examination Z01.20 [facility] [id number] [place] [address] 78245- 3444 Aug, Post-traumatic stress disorder, unspecified F43.10 ; Major depressive disorder, recurrent, moderate F33.1 and Problems related to release from correction Z65.2 [facility] [id number] [place] [address] 91276- 7767 Aug, [facility] [id number] [place] [address] 97255- 6879 Jul, [facility] [id number] [place] [address] 81799- 2646 Jul, Post-traumatic stress disorder, unspecified F43.10 and Major depressive disorder, recurrent, moderate F33.1 [facility] [id number] [place] [address] 33946- 9548 Jul, [facility] [id number] [place] [address] 53042- 0724 Jul, [facility] [id number] [place] [address] 42395- 6406 Jul, Chronic pain G89.29 [facility] [id number] [place] [address] 51951- 1344 June, Post-traumatic stress disorder, unspecified F43.10 and Major depressive disorder, recurrent, moderate F33.1 [facility] [id number] [place] [address] 70125- 3030 June, [facility] [address] [place] [address] 9[address] June, Chronic pain G89.29 [facility] [id number] [place] [address] 03699- 3641 June, Post-traumatic stress disorder, unspecified F43.10 and Major depressive disorder, recurrent, moderate F33.1 [facility] [id number] [place] [address] 30365- 7054 May, Post-traumatic stress disorder, unspecified F43.10 and Major depressive disorder, recurrent, moderate F33.1 [facility] [id number] [place] [address] 50598- 6817 May, [facility] [id number] [place] [address] 53714- 3448 May, [facility] [id number] [place] [address] 70458- 5919 May, [facility] [id number] [place] [address] 68046- 9717 Apr, [facility] [id number] [place] [address] 33018- 3317 Apr, Post-traumatic stress disorder, unspecified F43.10 and Sleep apnea, obstructive G47.33 [facility] [id number] [place] [address] 44533- 2659 Apr, [facility] [id number] [place] [address] 74774- 2995 Apr, Shoulder pain, left M25.512 [facility] [id number] [place] [address] 67825- 9743 18 Apr, 2015 Post-traumatic stress disorder, unspecified F43.10 and Major depressive disorder, recurrent, moderate F33.1 [facility] [id number] [place] [address] 32276- 5285 17 Apr, 2015 [facility] [id number] [place] [address] 08936- 3277 Apr, [facility] [id number] [place] [address] 98955- 0463 Apr, [facility] [id number] [place] [address] 11389- 0579 Apr, Left shoulder pain M25.512 [facility] [id number] [place] [address] 11763- 8224 Mar, [facility] [id number] [place] [address] 27750- 8838 Mar, [facility] [id number] [place] [address] 39096- 1591 Mar, [facility] [id number] [place] [address] 73445- 3582 Mar, Sleep apnea, obstructive G47.33 ; Obesity E66.9 ; Chronic pain G89.29 ; Hyperlipidemia E78.5 ; HTN (hypertension) I10 ; 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 ; Major depressive disorder, recurrent, moderate F33.1 and Anxiety F41.9 [facility] [id number] [place] [address] 52158- 6019 Mar, [facility] [id number] [place] [address] 16212- 8394 Mar, Post-traumatic stress disorder, unspecified F43.10 and Major depressive disorder, recurrent, moderate F33.1 [facility] [id number] [place] [address] 94514- 9357 Mar, [facility] [id number] [place] [address] 71380- 8969 04 Mar, 2015 HTN (hypertension) I10 ; 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 ; Obesity E66.9 ; Hyperlipidemia E78.5 ; Glaucoma H40.9 ; Chronic pain G89.29 and CAD (coronary artery disease) I25.10 [facility] [id number] [place] [address] 88502- 5621 Feb, [facility] [id number] [place] [address] 09510- 0476 Feb, Post-traumatic stress disorder, unspecified F43.10 ; Obesity E66.9 ; Sleep apnea, obstructive G47.33 and 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 [facility] [id number] [place] [address] 16269- 6903 Feb, Post-traumatic stress disorder, unspecified F43.10 and Major depressive disorder, recurrent, moderate F33.1 [facility] [id number] [place] [address] 28754- 1703 Feb, [facility] [id number] [place] [address] 19644- 1820 Feb, [facility] [id number] [place] [address] 87855- 2085 Feb, HTN (hypertension) I10 ; Post-traumatic stress disorder, unspecified F43.10 ; 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 ; Obesity E66.9 ; Hyperlipidemia E78.5 ; Chronic pain G89.29 ; Glaucoma H40.9 ; Mitral valve prolapse I34.1 and Bilateral headaches R51 [facility] [id number] [place] [address] 28289- 5434 Feb, [facility] [id number] [place] [address] 55687- 8180 Feb, Post-traumatic stress disorder, unspecified F43.10 and Major depressive disorder, recurrent, moderate F33.1 [facility] [id number] [place] [address] 40202- 5323 Feb, [facility] [address] 90072- 4618 Feb, [facility] [id number] [place] [address] 06528- 7630 Jan, [facility] [address] 68216- 7079 Jan, [facility] [address] 456272- 0284 Jan, Obesity E66.9 ; HTN (hypertension) I10 ; 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 ; Major depressive disorder, recurrent, moderate F33.1 ; Glaucoma H40.9 ; Hyperlipidemia E78.5 ; Sleep apnea, obstructive G47.33 ; Chronic pain G89.29 ; Anxiety F41.9 ; Chronic tension headaches G44.229 and Cough R05 [facility] [address] 55720- 6620 Jan, [facility] [address] 68464- 4539 Jan, [facility] [address] 66444- 0806 Jan, Post-traumatic stress disorder, unspecified F43.10 ; Obesity E66.9 ; Sleep apnea, obstructive G47.33 and 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 [address] 12262- 5161 Jan, [facility] [id number]- 3412 Jan, Post-traumatic stress disorder, unspecified F43.10 and Major depressive disorder, recurrent, moderate F33.1 [facility] [id number]- 5075 Dec, [facility] [address] 53663- 5581 Dec, Sleep apnea, obstructive G47.33 ; Obesity E66.9 ; Hyperlipidemia E78.5 ; Glaucoma H40.9 ; Chronic pain G89.29 ; HTN (hypertension ) I10 ; 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 ; Anxiety F41.9 and CAD (coronary artery disease) I25.10 [facility] [id number]- 2546 Nov, [facility] [id number] [place] [address] 94676- 6128 Nov, [facility] [id number] [place] [address] 51258- 4559 Nov, [facility] [id number] [place] [address] 66502- 4183 Nov, [facility] [id number] [place] [address] 75919- 8708 Nov, [facility] [id number] [place] [address] 85938- 9000 Nov, Encounter for immunization Z23 ; Sleep apnea, obstructive G47.33 ; Obesity E66.9 ; Hyperlipidemia E78.5 ; Glaucoma H40.9 ; Chronic pain G89.29 ; Anxiety F41.9 ; Chronic tension headaches G44.229 and HTN (hypertension ) I10 [facility] [id number] [place] [address] 50835- 6420 Nov, [facility] [id number] [place] [address] 80778- 8265 Nov, [facility] [id number] [place] [address] 23397- 5435 Nov, Dizziness R42 [facility] [id number] [place] [address] 42028- 7892 Nov, [facility] [id number] [place] [address] 42395- 4135 Oct, [facility] [id number] [place] [address] 04590- 0175 28 Oct, 2014 [facility] [id number] [place] [address] 84683- 8761 Oct, [facility] [id number] [place] [address] 48498- 3504 Oct, [facility] [address] [address]- 8147 17 Oct, 2014 Dizziness 780.4 ; Essential hypertension 401.9 ; Obesity 278.00 ; Hyperlipidemia 272.4 ; Chronic pain 338.29 ; Glaucoma 365.9 and Anxiety 300.00 [facility] [id number] [place] [address] 68088- 8122 Oct, Essential hypertension 401.9 ; Hyperlipidemia 272.4 ; Glaucoma 365.9 ; Obesity 278.00 ; Chronic pain 338.29 and Allergy to insects V15.06 [facility] [id number] [place] [address] 88883- 5574 Sep, [facility] [address] 28358- 0294 Sep, [facility] [id number] [place] [address] 62326- 9997 Sep, [facility] [id number] [place] [address] 45986- 2116 Sep, [facility] [id number] [place] [address] 16330- 4411 Aug, Essential hypertension 401.9 ; Obesity 278.00 [...] Psychotherapy, patient &/family, 45 minutes, established patient Oct 15, 2016 INSTRUCTIONS MEDICATIONS ADMINISTERED No Known Medications [...]
--- OUTSIDE RECORDS SUMMARY | 2018-02-04 13:49 | XMS REPORT ---
Author Author DEUIN CARDONA [facility] Address [address] [place] [address] Care Team Providers Care Fiber Analyst Name Role Phone EDUIN CARDONA Unavailable PROBLEMS Type Condition ICD9-CM Code IES41-YX Code Onset Dates Condition Status SNOMED Code Problem Glaucoma H40.9 Active 84379935 Problem Problems related to release from [facility] Z65.2 Active 67367704 Problem Sleep apnea, obstructive G47.33 Active 65912656 Problem Encounter for dental examination Z01.20 Active 080895052 Problem Chronic pain G89.29 Active 51599572 Problem Bilateral headaches R51 Active 740693493 Problem Obesity E66.9 Active 925336042 Problem Post-traumatic stress disorder, chronic F43.12 Active 958044600 Problem Arrhythmia as indication for cardiac pacemaker replacement I49.9 Active 12036108 Problem Environmental allergies Z91.09 Active 023033093 Problem Morbid (severe) obesity due to excess calories E66.01 Active 672868959 Problem Other male erectile dysfunction N52.8 Active 112881086 Problem 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 Active 268690506 Problem HTN (hypertension) I10 Active 19296990 Problem Hyperlipidemia E78.5 Active 15679156 Problem Post-traumatic stress disorder, unspecified F43.10 Active 19745244 Problem Primary insomnia F51.01 Active 0041694 Problem Other abnormal findings in specimens from other organs, systems and tissues R89.8 Active 165163465 Problem Body mass index (BMI) of 40.0-44.9 in adult Z68.41 Active 292549872 Problem Cough R05 Active 54295103 Problem Major depressive disorder, recurrent, moderate F33.1 Active 01655237 Problem Chronic tension headaches G44.229 Active 287429085 Problem Anxiety F41.9 Active 87635644 Problem CAD (coronary artery disease) I25.10 Active 05139118 Problem Shoulder pain, left M25.512 Active 28177749 Problem 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 Active 22042120 Problem Mitral valve prolapse I34.1 Active 468060187 ALLERGIES Substance Reaction Event Type Date Status Xalatan upper lid irritation Drug Allergy Jul, Active Penicillin G Potassium rash Drug Allergy Jul, Active Aspirin nausea and vomiting Drug Allergy Jul, Active bandaides blisters Non Drug Allergy Jul, Active Wasp venom anaphylaxis Non Drug Allergy Jul, Active SOCIAL HISTORY Never Assessed PLAN OF CARE Activity Details Follow Up 3 Months, prn Reason:htn, anxiety, mvp VITAL SIGNS Height 67 in 2016-07-10 Weight 269.5 lbs 2016-07-10 Temperature 98.8 degrees Fahrenheit 2016-07-10 Heart Rate 82 bpm 2016-07-10 Respiratory Rate 20 2016-07-10 BMI 42.21 kg/m2 2016-07-10 Blood pressure systolic 160 mmHg 2016-07-10 Blood pressure diastolic 100 mmHg 2016-07-10 MEDICATIONS Medication Instructions Dosage Frequency Start Date End Date Duration Status Hydrocodone-Acetaminophen 7.5-325 MG Orally 4 times a day 1 tablet as needed 6h June, Active Nitrostat 0.4 MG Sublingual every 5 minutes x 3 PRN 1 tablet Active Xanax 1 MG Orally Twice a day for anxiety 1 tablet Active Gabapentin 300 MG TAKE ONE CAPSULE BY MOUTH TWICE DAILY Active Furosemide 40 MG TAKE ONE TABLET BY MOUTH ONCE DAILY Active Metoprolol Succinate ER 200 mg Orally Once a day 1 tablet 24h Active Timolol 0.5 % Ophthalmic 2 times a day 1 drop into both eyes 12h Dec, Active Cartia XT 300 MG Orally Once a day 1 capsule 24h June, Active EPINEPHrine HCl 0.3 mg as directed Oct, Active Atorvastatin Calcium 40 mg Orally Once a day 1 tablet 24h Active Topamax 100 mg Orally Twice a day 1 tablet 12h Active Zolpidem Tartrate 10 mg Orally Once a day ONE-HALF TO ONE TABLET 24h Active Cardizem CD 300 MG Orally Once a day 1 capsule 24h Active Zofran ODT 4 MG Orally every 8 hrs 1 tablet on the tongue and allow to dissolve 8h Apr, Active RESULTS No Results PROCEDURES No Known [...]
--- OUTSIDE RECORDS SUMMARY | 2018-02-04 13:50 | XMS REPORT ---
Author Author EDUIN Ramos Organization [facility] Address [address] [place] [address] Care Team Providers Care Occup Ther Name Role Phone EDUIN Ramos Unavailable PROBLEMS Type Condition ICD9-CM Code [id number] Code Onset Dates Condition Status SNOMED Code Problem Environmental allergies Z91.09 Active 303996593 Problem Primary insomnia F51.01 Active 5963004 Problem Arrhythmia as indication for cardiac pacemaker replacement I49.9 Active 23615491 Problem Chronic pain syndrome G89.4 Active 999767426 Problem Sleep apnea, obstructive G47.33 Active 52699917 Problem Migraine without aura and without status migrainosus, not intractable G43.009 Active 098060080 Problem Hyperlipidemia E78.5 Active 46153407 Problem Myocarditis, unspecified chronicity, 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 Active 36055746 Problem Other male erectile dysfunction N52.8 Active 667068932 Problem Morbid (severe) obesity due to excess calories E66.01 Active 256561060 Problem 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 Active 090179222 Problem Body mass index (BMI) of 40.0-44.9 in adult Z68.41 Active 482525554 Problem 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 Active 337484521 Problem Chronic tension headaches G44.229 Active 597884480 Problem Chronic pain G89.29 Active 64026741 Problem HTN (hypertension) I10 Active 62385698 Problem 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 Active 67859001 Problem Mitral valve prolapse I34.1 Active 075708223 Problem Anxiety F41.9 Active 79474483 Problem CAD (coronary artery disease) I25.10 Active 04295789 Problem Major depressive disorder, recurrent, moderate F33.1 Active 09832230 Problem Post-traumatic stress disorder, chronic F43.12 Active [id number] ALLERGIES No Information ENCOUNTERS Encounter Location Date Diagnosis [facility] [address] [address] May, [facility] [address] [address] Apr, [place] [address] [address] Apr, [place] [address] [address]- [address] 13 Apr, 2017 Post-traumatic stress disorder, unspecified F43.10 ; Major depressive disorder, recurrent, moderate F33.1 and Problems related to release from long-term Z65.2 [place] [address] [address]- 6[address] 12 Apr, 2017 [place] [address] 00395- 8984 12 Apr, 2017 Chronic pain G89.29 ; 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 ; Morbid (severe) obesity due to excess calories E66.01 ; Anxiety F41.9 and BMI 40.0-44.9, adult Z68.41 [facility] [place] [address] [address] 10 Apr, 2017 Sore throat J02.9 and BMI 40.0-44.9, adult Z68.41 [place] [address] 02514- 1656 02 Apr, 2017 Left leg pain M79.605 [facility] [address] [id number] Mar, Dental examination Z01.20 [place] [address] [address]117- [address] Mar, [facility] [address] [address] Mar, Cough R05 ; Viral gastroenteritis A08.4 and BMI 40.0-44.9, adult Z68.41 [place] [address] 26[address]- 7794 Mar, Left leg pain M79.605 [place] [address] [place] [id number] [place] [address] 66004- 0919 Mar, Post-traumatic stress disorder, unspecified F43.10 ; Major depressive disorder, recurrent, moderate F33.1 and Problems related to release from long-term Z65.2 [facility] [address] [place] [id number] [place] [address] 22521- 8945 Feb, Left leg pain M79.605 [facility] [address] [place] [address] 81477- 8894 Feb, [place] [address] [place] [id number] [place] [address] 35750- 9749 Feb, BMI 40.0-44.9, adult Z68.41 ; Chronic pain syndrome G89.4 ; Migraine without aura and without status migrainosus, not intractable G43.009 ; Mitral valve prolapse I34.1 and 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 [place] [address] [place] [address] 24580- 1653 Feb, Post-traumatic stress disorder, chronic F43.12 ; Anxiety F41.9 ; Problems related to release from long-term Z65.2 and BMI 40.0-44.9, adult Z68.41 [place] [address] [place] [address] 96435- 5115 Feb, Post-traumatic stress disorder, unspecified F43.10 ; Major depressive disorder, recurrent, moderate F33.1 and Problems related to release from long-term Z65.2 [place] [address] [place] [address] 83006- 0176 Feb, Left leg pain M79.605 [facility] [address] [place] [id number] [place] [address] 52631- 9036 Jan, Post-traumatic stress disorder, unspecified F43.10 ; Major depressive disorder, recurrent, moderate F33.1 and Problems related to release from long-term Z65.2 [facility] [address] [address] 16[address] Jan, [facility] [address] [place] [address] 08221- 5853 Jan, [facility] [address] [address] Jan, Anxiety F41.9 [facility] [address] [place] [id number] [place] [address] 75354- 4289 Jan, Left leg pain M79.605 [place] [address] [place] [address] 09840- 4045 Dec, Left leg pain M79.605 [facility] [address] [place] [id number] [place] [address] 54865- 2622 Dec, [place] [address] [place] [id number] [place] [address] 16937- 1575 15 Dec, 2016 Post-traumatic stress disorder, unspecified F43.10 ; Major depressive disorder, recurrent, moderate F33.1 and Problems related to release from long-term Z65.2 [place] [address] [place] [address] 52994- 0508 31 Nov, 2016 Chronic pain G89.29 and Anxiety F41.9 [place] [address] [address] 0197 24 Nov, 2016 Chronic pain G89.29 and Anxiety F41.9 [place] [address] [address] 8[address] 16 Nov, 2016 Post-traumatic stress disorder, unspecified F43.10 ; Major depressive disorder, recurrent, moderate F33.1 and Problems related to release from long-term Z65.2 [place] [address] [address] 8889 09 Nov, 2016 Other abnormal findings in specimens from other organs, systems and tissues R89.8 ; Other male erectile dysfunction N52.8 ; Body mass index (BMI) of 40.0-44.9 in adult Z68.41 and Morbid (severe) obesity due to excess calories E66.01 [place] [address] [place] [id number] [place] [address] 78559- 2378 02 Nov, 2016 Post-traumatic stress disorder, unspecified F43.10 ; Major depressive disorder, recurrent, moderate F33.1 and Problems related to release from long-term Z65.2 [facility] [address] [place] [address] [id number] 29 Oct, 2016 Dental examination Z01.20 [facility] [address] [place] [id number] [place] [address] 73054- 8689 Oct, [place] [address] 56031- 2233 Oct, Encounter for immunization Z23 [place] [address] [place] [id number] [place] [address] 69709- 6425 Oct, Chronic pain G89.29 ; Anxiety F41.9 ; Arrhythmia as indication for cardiac pacemaker replacement I49.9 and Glaucoma H40.9 [facility] [address] [place] [id number] [place] [address] 34487- 4355 Oct, Anxiety F41.9 ; Post-traumatic stress disorder, chronic F43.12 and Problems related to release from long-term Z65.2 [place] [address] [place] [id number] [place] [address] 38225- 7218 Oct, Post-traumatic stress disorder, unspecified F43.10 ; Major depressive disorder, recurrent, moderate F33.1 and Problems related to release from long-term Z65.2 [facility] [address] [place] [address] 56877- 5966 Sep, Chronic pain G89.29 and Anxiety F41.9 [place] [address] [place] [id number] [place] [address] 29975- 7498 Sep, Post-traumatic stress disorder, unspecified F43.10 ; Major depressive disorder, recurrent, moderate F33.1 and Problems related to release from long-term Z65.2 [place] [address] [address] 0[address] 11 Sep, 2016 Post-traumatic stress disorder, unspecified F43.10 ; Major depressive disorder, recurrent, moderate F33.1 and Problems related to release from long-term Z65.2 [place] [address] [place] [id number] [place] [address] 10812- 4539 Sep, Chronic pain G89.29 [place] [address] [place] [id number] [place] [address] 98054- 5943 Aug, Dental caries, unspecified K02.9 [place] [address] [place] [id number] [place] [address] 64191- 8016 Aug, Sleep apnea, obstructive G47.33 ; Obesity E66.9 ; Chronic pain G89.29 ; HTN (hypertension) I10 ; Major depressive disorder, recurrent, moderate F33.1 ; Anxiety F41.9 ; Chronic tension headaches G44.229 ; Mitral valve prolapse I34.1 ; Arrhythmia as indication for cardiac pacemaker replacement I49.9 ; Dental caries, unspecified K02.9 ; Primary insomnia F51.01 and Hyperlipidemia E78.5 [place] [address] [place] [id number] [place] [address] 14898- 2967 Aug, Post-traumatic stress disorder, unspecified F43.10 ; Major depressive disorder, recurrent, moderate F33.1 and Problems related to release from long-term Z65.2 [place] [address] [address] 7[address] Aug, Dental examination Z01.20 [facility] [address] [place] [id number] [place] [address] [id number] Aug, Dental examination Z01.20 [place] [address] [place] [id number] [place] [address] 04779- 2452 Aug, Post-traumatic stress disorder, unspecified F43.10 ; Major depressive disorder, recurrent, moderate F33.1 and Problems related to release from long-term Z65.2 [place] [address] [place] [id number] [place] [address] 47309- 8249 Aug, Chronic pain G89.29 and Primary insomnia F51.01 [place] [address] [place] [address] 42869- 6712 Jul, [place] [address] [place] [id number] [place] [address] 52038- 0829 Jul, [place] [address] [place] [id number] [place] [address] 15587- 2693 Jul, Nausea R11.0 [place] [address] [place] [id number] [place] [address] 73707- 6247 Jul, Arrhythmia as indication for cardiac pacemaker replacement I49.9 [place] [address] [place] [id number] [place] [address] 07375- 2725 Jul, Post-traumatic stress disorder, unspecified F43.10 ; Major depressive disorder, recurrent, moderate F33.1 and Problems related to release from long-term Z65.2 [place] [address] [place] [id number] [place] [address] 73327- 0744 09 Jul, 2016 Anxiety F41.9 [place] [address] [place] [id number] [place] [address] 92240- 2957 08 Jul, 2016 Chronic pain G89.29 [place] [address] [place] [id number] [place] [address] 36624- 4911 02 Jul, 2016 Sleep apnea, obstructive G47.33 ; Hyperlipidemia E78.5 ; Chronic pain G89.29 ; 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 ; Major depressive disorder, recurrent, moderate F33.1 ; Anxiety F41.9 ; Mitral valve prolapse I34.1 ; Arrhythmia as indication for cardiac pacemaker replacement I49.9 ; Primary insomnia F51.01 ; Bilateral headaches R51 and Environmental allergies Z91.09 [place] [address] [place] [address] 24558- 9894 Jul, Post-traumatic stress disorder, unspecified F43.10 ; Major depressive disorder, recurrent, moderate F33.1 and Problems related to release from long-term Z65.2 [place] [address] [address]- 7094 June, Post-traumatic stress disorder, chronic F43.12 ; Anxiety F41.9 ; Problems related to release from long-term Z65.2 ; Sleep apnea, obstructive G47.33 and Primary insomnia F51.01 [place] [address] [address]- 6077 June, [place] [address] [place] [id number] [place] [address] 65678- 9886 June, [place] [address] [place] [id number] [place] [address] 53904- 8285 June, [place] [address] [place] [id number] [place] [address] 81848- 9385 June, Chronic pain G89.29 [place] [address] [place] [id number] [place] [address] 31960- 6400 June, Chronic pain G89.29 [place] [address] [place] [id number] [place] [address] 24497- 6231 June, Lipoma of left lower extremity D17.24 ; Open wound T14.8 and Swelling of left lower extremity M79.89 [place] [address] [address]- 3045 June, Post-traumatic stress disorder, unspecified F43.10 ; Major depressive disorder, recurrent, moderate F33.1 and Problems related to release from long-term Z65.2 [place] [address] [address]- 7154 May, Lipoma of left lower extremity D17.24 ; Major depressive disorder, recurrent, moderate F33.1 ; Sleep apnea, obstructive G47.33 ; Hyperlipidemia E78.5 ; Obesity E66.9 ; HTN (hypertension) I10 ; Glaucoma H40.9 ; CAD (coronary artery disease) I25.10 ; Chronic tension headaches G44.229 ; Chronic pain G89.29 ; Anxiety F41.9 ; Nausea R11.0 and Primary insomnia F51.01 [place] [id number] [place] [address] 49607- 9274 May, [place] [id number] [place] [address] 44294- 8920 11 May, 2016 Chronic pain G89.29 [place] [id number] [place] [address] 75681- 4734 May, [address] [address]- 9020 31 Apr, 2016 Post-traumatic stress disorder, unspecified F43.10 ; Major depressive disorder, recurrent, moderate F33.1 and Problems related to release from long-term Z65.2 [place] [id number] [place] [address] 71235- 8350 28 Apr, 2016 Primary insomnia F51.01 ; Post-traumatic stress disorder, chronic F43.12 and Problems related to release from long-term Z65.2 [place] [id number] [place] [address] 69749- 3764 17 Apr, 2016 Post-traumatic stress disorder, unspecified F43.10 ; Major depressive disorder, recurrent, moderate F33.1 and Problems related to release from long-term Z65.2 [place] [id number] [place] [address] 23256- 5341 16 Apr, 2016 [place] [id number] [place] [address] 94961- 0160 Apr, Sleep apnea, obstructive G47.33 ; Chronic pain G89.29 ; HTN (hypertension) I10 ; Mitral valve prolapse I34.1 ; Shoulder pain, left M25.512 ; Arrhythmia as indication for cardiac pacemaker replacement I49.9 ; Glaucoma H40.9 ; Bilateral headaches R51 ; Environmental allergies Z91.09 ; Primary insomnia F51.01 and Nausea R11.0 [place] [id number] [place] [address] 77830- 1218 15 Apr, 2016 [place] [id number] [place] [address] 39157- 2382 Apr, [place] [address] [place] [address]45 Apr, Post-traumatic stress disorder, unspecified F43.10 ; Major depressive disorder, recurrent, moderate F33.1 and Problems related to release from long-term Z65.2 [place] [address] [place] [id number] [place] [address] 26551- 1516 Apr, HTN (hypertension) I10 [place] [address] [place] [id number] [place] [address] 3622 Apr, HTN (hypertension) I10 [place] [address] [place] [id number] [place] [address]- 2882 14 Mar, 2016 Chronic pain G89.29 ; Primary insomnia F51.01 and Problems related to release from long-term Z65.2 [place] [address] [place] [id number] [place] [address] 97160- 3500 07 Mar, 2016 Post-traumatic stress disorder, unspecified F43.10 ; Major depressive disorder, recurrent, moderate F33.1 and Problems related to release from long-term Z65.2 [place] [address] [place] [id number] [place] [address] 38081- 8332 Feb, Post-traumatic stress disorder, unspecified F43.10 ; Major depressive disorder, recurrent, moderate F33.1 and Problems related to release from long-term Z65.2 [place] [address] [place] [address] 21612- 0071 Feb, Chronic tension headaches G44.229 [place] [address] [place] [address] 74643- 1357 Feb, Sleep apnea, obstructive G47.33 ; Obesity E66.9 ; Hyperlipidemia E78.5 ; Glaucoma H40.9 ; Chronic pain G89.29 ; HTN (hypertension ) I10 ; 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 ; 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 ; Chronic tension headaches G44.229 ; Cough R05 ; CAD (coronary artery disease) I25.10 ; Problems related to release from long-term Z65.2 ; Arrhythmia as indication for cardiac pacemaker replacement I49.9 and Primary insomnia F51.01 [facility] [address] [place] [id number] [place] [address] 65310- 5631 17 Feb, 2016 Post-traumatic stress disorder, unspecified F43.10 and Chronic pain G89.29 [facility] [address] [place] [id number] [place] [address] 87032- 0005 Feb, [facility] [address] [place] [id number] [place] [address] [id number] Feb, Dental caries K02.9 [facility] [address] 41714- 9726 Feb, [facility] [address] [place] [id number] [place] [address] 96288- 7098 Feb, Post-traumatic stress disorder, unspecified F43.10 ; Major depressive disorder, recurrent, moderate F33.1 and Problems related to release from long-term Z65.2 [facility] [address] [place] [id number] [place] [address] 81584- 0978 Jan, Sleep apnea, obstructive G47.33 and Chronic pain G89.29 [facility] [address] [place] [id number] [place] [address] 90389- 7121 Jan, [facility] [address] [place] [id number] [place] [address] 92344- 1586 Jan, Dental examination Z01.20 [facility] [address] [place] [address] 89105- 9645 Jan, [facility] [address] [place] [id number] [place] [address] 25780- 0722 Jan, [facility] [address] [place] [id number] [place] [address] 19529- 0214 Dec, Post-traumatic stress disorder, unspecified F43.10 ; Major depressive disorder, recurrent, moderate F33.1 and Problems related to release from long-term Z65.2 [place] [address] [address]- 7252 Dec, Encounter for immunization Z23 ; Problems related to release from long-term Z65.2 ; Sleep apnea, obstructive G47.33 and Post-traumatic stress disorder, chronic F43.12 [place] [address] [place] [id number] [place] [address] 98356- 7202 18 Dec, 2015 Sleep apnea, obstructive G47.33 ; Hyperlipidemia E78.5 ; Chronic pain G89.29 ; Glaucoma H40.9 ; HTN (hypertension) I10 ; Post-traumatic stress disorder, unspecified F43.10 ; Anxiety F41.9 ; Chronic tension headaches G44.229 ; Mitral valve prolapse I34.1 and CAD (coronary artery disease) I25.10 [place] [address] [place] [id number] [place] [address] 22701- 8438 15 Dec, 2015 Post-traumatic stress disorder, unspecified F43.10 ; Major depressive disorder, recurrent, moderate F33.1 and Problems related to release from long-term Z65.2 [place] [address] [place] [id number] [place] [address] 38244- 4098 Nov, Chronic pain G89.29 [place] [address] [place] [id number] [place] [address] 19035- 1559 Nov, Post-traumatic stress disorder, unspecified F43.10 ; Major depressive disorder, recurrent, moderate F33.1 and Problems related to release from long-term Z65.2 [place] [address] [place] [address] 43649- 4975 Oct, [place] [address] [place] [id number] [place] [address] 11166- 3811 Oct, [place] [address] [place] [id number] [place] [address] 71089- 4118 16 Oct, 2015 Post-traumatic stress disorder, unspecified F43.10 ; Major depressive disorder, recurrent, moderate F33.1 and Problems related to release from long-term Z65.2 [place] [address] [place] [id number] [place] [address] 88649- 8816 Oct, [facility] [address] [place] [id number] [place] [address] 99346- 2510 Oct, Environmental allergies Z91.09 ; Cough R05 and 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 [facility] [address] [place] [id number] [place] [address] 87035- 2997 Sep, [facility] [address] 42752- 7185 Sep, Post-traumatic stress disorder, unspecified F43.10 ; Major depressive disorder, recurrent, moderate F33.1 and Problems related to release from long-term Z65.2 [place] [address] [place] [id number] [place] [address] 85686- 0804 Sep, Chronic pain G89.29 [place] [address] [place] [id number] [place] [address] 31913- 0160 Sep, Pain in left shoulder M25.512 ; Pain in right shoulder M25.511 and Other chronic pain G89.29 [place] [address] [place] [id number] [place] [address] 00529- 2957 Sep, [place] [address] [place] [id number] [place] [address] 15759- 2513 Sep, [facility] [address] [place] [address] 56920- 3757 Sep, [facility] [address] [place] [id number] [place] [address] [id number] Aug, Dental examination Z01.20 [facility] [address] [place] [id number] [place] [address] 45441- 6985 Aug, Post-traumatic stress disorder, unspecified F43.10 ; Open- angle glaucoma of both 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 and Problems related to release from long-term Z65.2 [facility] [address] [place] [address] 42234- 4157 Aug, [place] [address] [place] [address] 82579- 5359 Aug, Sleep apnea, obstructive G47.33 ; Obesity E66.9 ; Hyperlipidemia E78.5 ; Bilateral headaches R51 ; HTN (hypertension) I10 ; Post- traumatic stress disorder, unspecified F43.10 ; Anxiety F41.9 ; Neuropathy G62.9 ; Glaucoma H40.9 and Chronic pain G89.29 [facility] [address] [place] [address] [id number] Aug, Encounter for dental examination Z01.20 [facility] [address] [place] [id number] [place] [address] 98821- 2921 Aug, Post-traumatic stress disorder, unspecified F43.10 ; Major depressive disorder, recurrent, moderate F33.1 and Problems related to release from long-term Z65.2 [place] [address] [place] [id number] [place] [address] 61616- 5318 Aug, [facility] [address] [place] [id number] [place] [address] 49863- 3969 Jul, [facility] [address] [place] [id number] [place] [address] 37935- 0016 Jul, Post-traumatic stress disorder, unspecified F43.10 and Major depressive disorder, recurrent, moderate F33.1 [facility] [address] [place] [id number] [place] [address] 18133- 4802 Jul, [facility] [address] [place] [id number] [place] [address] 25927- 3603 Jul, [facility] [address] [place] [address] 25927- 8672 Jul, Chronic pain G89.29 [facility] [address] [place] [id number] [place] [address] 57552- 2244 June, Post-traumatic stress disorder, unspecified F43.10 and Major depressive disorder, recurrent, moderate F33.1 [place] [address] [place] [id number] [place] [address] 61259- 3910 June, [facility] [address] [place] [address] 56137- 8623 June, Chronic pain G89.29 [facility] [address] [place] [id number] [place] [address] 807388- 9753 June, Post-traumatic stress disorder, unspecified F43.10 and Major depressive disorder, recurrent, moderate F33.1 [facility] [address] [place] [id number] [place] [address] 60303- 4135 May, Post-traumatic stress disorder, unspecified F43.10 and Major depressive disorder, recurrent, moderate F33.1 [facility] [id number] [place] [address] 23491- 3785 May, [place] [id number] [place] [address] 35248- 9091 May, [facility] [id number] [place] [address] 41838- 1693 May, [facility] [id number] [place] [address] 79887- 9493 Apr, [facility] [id number] [place] [address] 99425- 7934 Apr, Post-traumatic stress disorder, unspecified F43.10 and Sleep apnea, obstructive G47.33 [facility] [id number] [place] [address] 87985- 7448 Apr, [facility] [id number] [place] [address] 67201- 2170 Apr, Shoulder pain, left M25.512 [facility] [id number] [place] [address] 05023- 2160 Apr, Post-traumatic stress disorder, unspecified F43.10 and Major depressive disorder, recurrent, moderate F33.1 [facility] [id number] [place] [address] 82145- 6590 Apr, [facility] [address] [address] 3399 Apr, [facility] [id number] [place] [address] 01989- 5110 Apr, [facility] [address] [address] 7871 Apr, Left shoulder pain M25.512 [facility] [id number] [place] [address] 31449- 8182 Mar, [facility] [id number] [place] [address] 04298- 8832 Mar, [facility] [id number] [place] [address] 60729- 7409 Mar, [facility] [id number] [place] [address] 54372- 2803 Mar, Sleep apnea, obstructive G47.33 ; Obesity E66.9 ; Chronic pain G89.29 ; Hyperlipidemia E78.5 ; HTN (hypertension) I10 ; 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 ; Major depressive disorder, recurrent, moderate F33.1 and Anxiety F41.9 [facility] [address] [address] 5979 Mar, [facility] [id number] [place] [address] 63632- 7296 Mar, Post-traumatic stress disorder, unspecified F43.10 and Major depressive disorder, recurrent, moderate F33.1 [facility] [address] [address] 1603 Mar, [facility] [id number] [place] [address] 34136- 7259 04 Mar, 2015 HTN (hypertension) I10 ; 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 ; Obesity E66.9 ; Hyperlipidemia E78.5 ; Glaucoma H40.9 ; Chronic pain G89.29 and CAD (coronary artery disease) I25.10 [address] [id number] [place] [address] 45039- 0617 Feb, [id number]- 6208 Feb, Post-traumatic stress disorder, unspecified F43.10 ; Obesity E66.9 ; Sleep apnea, obstructive G47.33 and 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 [address] [address]108- 7344 Feb, Post-traumatic stress disorder, unspecified F43.10 and Major depressive disorder, recurrent, moderate F33.[address] 56258- 8657 Feb, [address] 09113- 3717 Feb, [address] 48209- 3682 Feb, HTN (hypertension) I10 ; Post-traumatic stress disorder, unspecified F43.10 ; 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 ; Obesity E66.9 ; Hyperlipidemia E78.5 ; Chronic pain G89.29 ; Glaucoma H40.9 ; Mitral valve prolapse I34.1 and Bilateral headaches R51 [address] 83312- 0097 Feb, [address] 21985- 4679 Feb, Post-traumatic stress disorder, unspecified F43.10 and Major depressive disorder, recurrent, moderate F33.[address] 72091- 7082 Feb, [address] 72905- 1884 Feb, [place] [address]- [address] Jan, [place] [id number] [place] [address] Jan, [place] [id number] [place] [address]- 1465 Jan, Obesity E66.9 ; HTN (hypertension) I10 ; 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 ; Major depressive disorder, recurrent, moderate F33.1 ; Glaucoma H40.9 ; Hyperlipidemia E78.5 ; Sleep apnea, obstructive G47.33 ; Chronic pain G89.29 ; Anxiety F41.9 ; Chronic tension headaches G44.229 and Cough R05 [place] [id number] [place] [address]- 2749 Jan, [place] [id number] [place] [address] 321660- 1063 Jan, [place] [id number] [place] [address] Jan, Post-traumatic stress disorder, unspecified F43.10 ; Obesity E66.9 ; Sleep apnea, obstructive G47.33 and 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 [place] [id number] [place] [address] 66800- 1871 Jan, [place] [id number] [place] [address]- 8321 Jan, Post-traumatic stress disorder, unspecified F43.10 and Major depressive disorder, recurrent, moderate F33.1 [place] [id number] [place] [address] 55135- 3168 Dec, [place] [id number] [place] [address]- [address]90 Dec, Sleep apnea, obstructive G47.33 ; Obesity E66.9 ; Hyperlipidemia E78.5 ; Glaucoma H40.9 ; Chronic pain G89.29 ; HTN (hypertension ) I10 ; 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 ; Anxiety F41.9 and CAD (coronary artery disease) I25.10 [facility] [address] [address]- 1142 Nov, [facility] [id number] [place] [address] 64835- 0953 Nov, [facility] [id number] [place] [address] 60041- 0073 Nov, [facility] [address] 62135- 5950 Nov, [facility] [id number] [place] [address] 01254- 9050 Nov, [facility] [id number] [place] [address] 44264- 7115 Nov, Encounter for immunization Z23 ; Sleep apnea, obstructive G47.33 ; Obesity E66.9 ; Hyperlipidemia E78.5 ; Glaucoma H40.9 ; Chronic pain G89.29 ; Anxiety F41.9 ; Chronic tension headaches G44.229 and HTN (hypertension ) I10 [facility] [id number] [place] [address] 38985- 9699 Nov, [facility] [id number] [place] [address] 51208- 1767 Nov, [facility] [id number] [place] [address] 82733- 4160 Nov, Dizziness R42 [facility] [id number] [place] [address] 38029- 1896 Nov, [facility] [id number] [place] [address] 80584- 6484 Oct, [facility] [id number] [place] [address] 39302- 8522 Oct, [facility] [id number] [place] [address] 64151- 0876 Oct, [facility] [address] [place] [address]- 9407 Oct, [facility] [id number] [place] [address] 44810- 7008 Oct, Dizziness 780.4 ; Essential hypertension 401.9 ; Obesity 278.00 ; Hyperlipidemia 272.4 ; Chronic pain 338.29 ; Glaucoma 365.9 and Anxiety 300.00 [place] [address] 27003- 2065 Oct, Essential hypertension 401.9 ; Hyperlipidemia 272.4 ; Glaucoma 365.9 ; Obesity 278.00 ; Chronic pain 338.29 and Allergy to insects V15.06 [place] [address] 67414- 1357 Sep, [facility] [address] 16769- 7914 Sep, [place] [address] 75195- 6888 Sep, [place] [address] 84495- 1413 Sep, [place] [address] 44529- 4134 Aug, Essential hypertension 401.9 ; Obesity 278.00 ; Hyperlipidemia 272.4 ; Glaucoma 365.9 ; Lipoma 214.9 ; Mitral valve prolapse 424.0 ; Angina at rest 413.9 ; Lymphedema 457.1 and Chronic pain 338.29 IMMUNIZATIONS No Known Immunizations SOCIAL HISTORY Never Assessed REASON FOR VISIT Hydrocodone 07/16 PLAN OF CARE VITAL SIGNS MEDICATIONS Medication Instructions Dosage Frequency Start Date End Date Duration Status Hydrocodone-Acetaminophen 7.5-325 MG Orally 4 times a day 1 tablet 6h Jul, 28 days Active RESULTS No Results PROCEDURES No [...]
--- OUTSIDE RECORDS SUMMARY | 2018-02-04 13:50 | XMS REPORT ---
Author Author CJ EDGE [facility] Address [address] [place] [address] Care Team Providers Care Telephone Assembler Name Role Phone CJ EDGE Unavailable PROBLEMS Type Condition ICD9-CM Code [id number] Code Onset Dates Condition Status SNOMED Code Problem CAD (coronary artery disease) I25.10 Active 35001318 Problem Encounter for dental examination Z01.20 Active 672285349 Problem Shoulder pain, left M25.512 Active 72976232 Problem Post-traumatic stress disorder, unspecified F43.10 Active 82397906 Problem Hyperlipidemia E78.5 Active 11742697 Problem Primary insomnia F51.01 Active 8945656 Problem Obesity E66.9 Active 555453445 Problem Chronic pain G89.29 Active 30399712 Problem Post-traumatic stress disorder, chronic F43.12 Active 409622901 Problem Bilateral headaches R51 Active 200282532 Problem Arrhythmia as indication for cardiac pacemaker replacement I49.9 Active 32980782 Problem Environmental allergies Z91.09 Active 597252872 Problem 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 Active 351359258 Problem HTN (hypertension) I10 Active 51926001 Problem Glaucoma H40.9 Active 29043975 Problem Problems related to release from fdc Z65.2 Active 06271850 Problem Anxiety F41.9 Active 86872345 Problem Major depressive disorder, recurrent, moderate F33.1 Active 53800535 Problem Chronic tension headaches G44.229 Active 708295912 Problem 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 Active 54773679 Problem Sleep apnea, obstructive G47.33 Active 73547053 Problem Cough R05 Active 85304143 Problem Mitral valve prolapse I34.1 Active 648838198 ALLERGIES No Information SOCIAL HISTORY Never Assessed PLAN OF CARE Activity Details Follow Up 2 Weeks Reason: VITAL SIGNS MEDICATIONS Unknown Medications RESULTS No Results PROCEDURES Procedure Date Ordered Result Body Site Psychotherapy, patient &/family, 30 minutes, established patient April 14, 2016 IMMUNIZATIONS No Known Immunizations MEDICAL (GENERAL) HISTORY [...]
--- OUTSIDE RECORDS SUMMARY | 2018-02-04 13:51 | XMS REPORT ---
Author Author EDUIN Ramos Organization [facility] Address [address] [place] [address] Care Team Providers Care Electronic Warfare Linguist Name Role Phone EDUIN Ramos Unavailable PROBLEMS Type Condition ICD9-CM Code AJY71-NH Code Onset Dates Condition Status SNOMED Code Problem Environmental allergies Z91.09 Active 334090849 Problem Primary insomnia F51.01 Active 8526820 Problem Arrhythmia as indication for cardiac pacemaker replacement I49.9 Active 17644830 Problem Chronic pain syndrome G89.4 Active 064485272 Problem Sleep apnea, obstructive G47.33 Active 68217435 Problem Migraine without aura and without status migrainosus, not intractable G43.009 Active 569611851 Problem Hyperlipidemia E78.5 Active 84037454 Problem Myocarditis, unspecified chronicity, 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 Active 48466326 Problem Other male erectile dysfunction N52.8 Active 129910620 Problem Morbid (severe) obesity due to excess calories E66.01 Active 475073716 Problem 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 Active 687844598 Problem Body mass index (BMI) of 40.0-44.9 in adult Z68.41 Active 494453111 Problem 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 Active 252694064 Problem Chronic tension headaches G44.229 Active 370176480 Problem Chronic pain G89.29 Active 86110515 Problem HTN (hypertension) I10 Active 32835626 Problem 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 Active 57432193 Problem Mitral valve prolapse I34.1 Active 347910469 Problem Anxiety F41.9 Active 13912410 Problem CAD (coronary artery disease) I25.10 Active 19869087 Problem Major depressive disorder, recurrent, moderate F33.1 Active 68935262 Problem Post-traumatic stress disorder, chronic F43.12 Active [id number] ALLERGIES No Information ENCOUNTERS Encounter Location Date Diagnosis [facility] [address] [facility] [id number] [place] [address] 52393- 9814 May, [facility] [id number] [place] [address] 43580- 3024 May, [facility] [id number] [place] [address] 78541- 0375 Apr, [facility] [address] 69144- 9223 Apr, [facility] [address] 11821- 7668 Apr, [facility] [address] 05034- 8329 Apr, Left leg pain M79.605 [place] [address] 85650- 2413 13 Apr, 2017 Post-traumatic stress disorder, unspecified F43.10 ; Major depressive disorder, recurrent, moderate F33.1 and Problems related to release from long-term Z65.2 [facility] [id number] [place] [address] 26877- 4882 12 Apr, 2017 [facility] [id number] [place] [address] 39689- 3608 12 Apr, 2017 Chronic pain G89.29 ; 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 ; Morbid (severe) obesity due to excess calories E66.01 ; Anxiety F41.9 and BMI 40.0-44.9, adult Z68.41 [facility] [id number] [place] [address] 48038 -2765 10 Apr, 2017 Sore throat J02.9 and BMI 40.0-44.9, adult Z68.41 [facility] [id number] [place] [address] 25000- 8891 02 Apr, 2017 Left leg pain M79.605 [facility] [id number] [place] [address] [id number] Mar, Dental examination Z01.20 [facility] [id number] [place] [address] 14664- 9265 Mar, [facility] [address] 70524 -7963 Mar, Cough R05 ; Viral gastroenteritis A08.4 and BMI 40.0-44.9, adult Z68.41 [place] [address] 82094- 4119 Mar, Left leg pain M79.605 [place] [address] 24742- 7898 Mar, Post-traumatic stress disorder, unspecified F43.10 ; Major depressive disorder, recurrent, moderate F33.1 and Problems related to release from long-term Z65.2 [place] [address] 41385- 5552 Feb, Left leg pain M79.605 [place] [address] 28395- 4958 Feb, [place] [address] 58267- 3493 Feb, BMI 40.0-44.9, adult Z68.41 ; Chronic pain syndrome G89.4 ; Migraine without aura and without status migrainosus, not intractable G43.009 ; Mitral valve prolapse I34.1 and 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 [place] [address] 38454- 4829 Feb, Post-traumatic stress disorder, chronic F43.12 ; Anxiety F41.9 ; Problems related to release from long-term Z65.2 and BMI 40.0-44.9, adult Z68.41 [place] [address] 38357- 7181 Feb, Post-traumatic stress disorder, unspecified F43.10 ; Major depressive disorder, recurrent, moderate F33.1 and Problems related to release from long-term Z65.2 [place] [id number] [place] [address] 16829- 2814 Feb, Left leg pain M79.605 [facility] [id number] [place] [address] 02826- 8926 Jan, Post-traumatic stress disorder, unspecified F43.10 ; Major depressive disorder, recurrent, moderate F33.1 and Problems related to release from long-term Z65.2 [facility] [id number] [place] [address] 16006- 5834 Jan, [facility] [id number] [place] [address] 36785- 2669 Jan, [facility] [id number] [place] [address] 00936- 5351 Jan, Anxiety F41.9 [facility] [id number] [place] [address] 60945- 5610 Jan, Left leg pain M79.605 [facility] [id number] [place] [address] 16619- 4430 Dec, Left leg pain M79.605 [facility] [id number] [place] [address] 80115- 2698 Dec, [facility] [id number] [place] [address] 20603- 0360 Dec, Post-traumatic stress disorder, unspecified F43.10 ; Major depressive disorder, recurrent, moderate F33.1 and Problems related to release from long-term Z65.2 [facility] [id number] [place] [address] 01276- 6551 Nov, Chronic pain G89.29 and Anxiety F41.9 [facility] [id number] [place] [address] 72908- 3821 24 Nov, 2016 Chronic pain G89.29 and Anxiety F41.9 [facility] [id number] [place] [address] 37498- 4414 16 Nov, 2016 Post-traumatic stress disorder, unspecified F43.10 ; Major depressive disorder, recurrent, moderate F33.1 and Problems related to release from long-term Z65.2 [facility] [id number] [place] [address] 88181- 7130 09 Nov, 2016 Other abnormal findings in specimens from other organs, systems and tissues R89.8 ; Other male erectile dysfunction N52.8 ; Body mass index (BMI) of 40.0-44.9 in adult Z68.41 and Morbid (severe) obesity due to excess calories E66.01 [place] [id number] [place] [address] 07847- 1108 02 Nov, 2016 Post-traumatic stress disorder, unspecified F43.10 ; Major depressive disorder, recurrent, moderate F33.1 and Problems related to release from long-term Z65.2 [facility] [id number] [place] [address] [id number] 29 Oct, 2016 Dental examination Z01.20 [place] [address] [id number] [place] [address] 53592- 1255 Oct, [place] [address] [id number] [place] [address] 30425- 8751 Oct, Encounter for immunization Z23 [place] [id number] [place] [address] 48587- 3111 Oct, Chronic pain G89.29 ; Anxiety F41.9 ; Arrhythmia as indication for cardiac pacemaker replacement I49.9 and Glaucoma H40.9 [facility] [id number] [place] [address] 26212- 9153 Oct, Anxiety F41.9 ; Post-traumatic stress disorder, chronic F43.12 and Problems related to release from long-term Z65.2 [facility] [id number] [place] [address] 86088- 6160 07 Oct, 2016 Post-traumatic stress disorder, unspecified F43.10 ; Major depressive disorder, recurrent, moderate F33.1 and Problems related to release from long-term Z65.2 [place] [id number] [address]- 3808 Sep, Chronic pain G89.29 and Anxiety F41.9 [place] [id number] [place] [address] 97760- 1193 Sep, Post-traumatic stress disorder, unspecified F43.10 ; Major depressive disorder, recurrent, moderate F33.1 and Problems related to release from long-term Z65.2 [place] [id number] [place] [address] 16150- 9865 Sep, Post-traumatic stress disorder, unspecified F43.10 ; Major depressive disorder, recurrent, moderate F33.1 and Problems related to release from long-term Z65.2 [place] [id number] [place] [address] 41650- 4826 Sep, Chronic pain G89.29 [place] [id number] [place] [address] 07811- 2372 Aug, Dental caries, unspecified K02.9 [id number] [place] [address] 87500- 8106 Aug, Sleep apnea, obstructive G47.33 ; Obesity E66.9 ; Chronic pain G89.29 ; HTN (hypertension) I10 ; Major depressive disorder, recurrent, moderate F33.1 ; Anxiety F41.9 ; Chronic tension headaches G44.229 ; Mitral valve prolapse I34.1 ; Arrhythmia as indication for cardiac pacemaker replacement I49.9 ; Dental caries, unspecified K02.9 ; Primary insomnia F51.01 and Hyperlipidemia E78.5 [id number] [place] [address] 40488- 9381 Aug, Post-traumatic stress disorder, unspecified F43.10 ; Major depressive disorder, recurrent, moderate F33.1 and Problems related to release from long-term Z65.2 [address] [address]- 5553 Aug, Dental examination Z01.20 [facility] [id number] [place] [address] [id number] Aug, Dental examination Z01.20 [place] [address] [id number] [place] [address] 98996- 0049 06 Aug, 2016 Post-traumatic stress disorder, unspecified F43.10 ; Major depressive disorder, recurrent, moderate F33.1 and Problems related to release from long-term Z65.2 [place] [address] [id number] [place] [address] 13527- 1253 Aug, Chronic pain G89.29 and Primary insomnia F51.01 [place] [id number] [place] [address] 85602- 3980 Jul, [place] [id number] [place] [address] 27800- 2355 Jul, [place] [id number] [place] [address] 25470- 6784 Jul, Nausea R11.0 [place] [address] [place] [id number] [place] [address] 17599- 3083 Jul, Arrhythmia as indication for cardiac pacemaker replacement I49.9 [place] [id number] [place] [address] 89178- 0074 Jul, Post-traumatic stress disorder, unspecified F43.10 ; Major depressive disorder, recurrent, moderate F33.1 and Problems related to release from long-term Z65.2 [place] [id number] [place] [address] 02762- 0821 09 Jul, 2016 Anxiety F41.9 [place] [id number] [place] [address] 03729- 4326 08 Jul, 2016 Chronic pain G89.29 [place] [id number] [place] [address] 31822- 0750 Jul, Sleep apnea, obstructive G47.33 ; Hyperlipidemia E78.5 ; Chronic pain G89.29 ; 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 ; Major depressive disorder, recurrent, moderate F33.1 ; Anxiety F41.9 ; Mitral valve prolapse I34.1 ; Arrhythmia as indication for cardiac pacemaker replacement I49.9 ; Primary insomnia F51.01 ; Bilateral headaches R51 and Environmental allergies Z91.09 [place] [address] 47897- 3418 Jul, Post-traumatic stress disorder, unspecified F43.10 ; Major depressive disorder, recurrent, moderate F33.1 and Problems related to release from long-term Z65.2 [place] [address] 74470- 0310 June, Post-traumatic stress disorder, chronic F43.12 ; Anxiety F41.9 ; Problems related to release from long-term Z65.2 ; Sleep apnea, obstructive G47.33 and Primary insomnia F51.01 [place] [id number] [place] [address] 13636- 3578 June, [place] [address] 54446- 6416 June, [place] [address] 79378- 0260 June, [place] [address] 10595- 1513 June, Chronic pain G89.29 [place] [id number] [place] [address] 74615- 2728 June, Chronic pain G89.29 [place] [id number] [place] [address] 30527- 8917 June, Lipoma of left lower extremity D17.24 ; Open wound T14.8 and Swelling of left lower extremity M79.[address] 71211- 4344 June, Post-traumatic stress disorder, unspecified F43.10 ; Major depressive disorder, recurrent, moderate F33.1 and Problems related to release from long-term Z65.2 [place] [address] 63393- 8048 May, Lipoma of left lower extremity D17.24 ; Major depressive disorder, recurrent, moderate F33.1 ; Sleep apnea, obstructive G47.33 ; Hyperlipidemia E78.5 ; Obesity E66.9 ; HTN (hypertension) I10 ; Glaucoma H40.9 ; CAD (coronary artery disease) I25.10 ; Chronic tension headaches G44.229 ; Chronic pain G89.29 ; Anxiety F41.9 ; Nausea R11.0 and Primary insomnia F51.[address] 83382- 9844 May, [address] 91257- 2757 May, Chronic pain G89.[address] 80494- 7282 May, [address] 34028- 0349 31 Apr, 2016 Post-traumatic stress disorder, unspecified F43.10 ; Major depressive disorder, recurrent, moderate F33.1 and Problems related to release from long-term Z65.[address] 14159- 8671 28 Apr, 2016 Primary insomnia F51.01 ; Post-traumatic stress disorder, chronic F43.12 and Problems related to release from long-term Z65.2 [place] [id number] [place] [address] 98835- 7726 17 Apr, 2016 Post-traumatic stress disorder, unspecified F43.10 ; Major depressive disorder, recurrent, moderate F33.1 and Problems related to release from long-term Z65.[address] 96411- 5489 Apr, [address] 47473- 6675 Apr, Sleep apnea, obstructive G47.33 ; Chronic pain G89.29 ; HTN (hypertension) I10 ; Mitral valve prolapse I34.1 ; Shoulder pain, left M25.512 ; Arrhythmia as indication for cardiac pacemaker replacement I49.9 ; Glaucoma H40.9 ; Bilateral headaches R51 ; Environmental allergies Z91.09 ; Primary insomnia F51.01 and Nausea R11.0 [place] [id number] [address]- 6042 Apr, [place] [id number] [place] [address] 36565- 5648 Apr, [place] [id number] [place] [address] 93155- 3444 Apr, Post-traumatic stress disorder, unspecified F43.10 ; Major depressive disorder, recurrent, moderate F33.1 and Problems related to release from long-term Z65.2 [place] [id number] [place] [address] 79213- 5360 Apr, HTN (hypertension) I10 [place] [id number] [place] [address] 52784- 4823 Apr, HTN (hypertension) I10 [place] [id number] [place] [address] 25433- 6461 14 Mar, 2016 Chronic pain G89.29 ; Primary insomnia F51.01 and Problems related to release from long-term Z65.2 [place] [id number] [place] [address] 40732- 5056 07 Mar, 2016 Post-traumatic stress disorder, unspecified F43.10 ; Major depressive disorder, recurrent, moderate F33.1 and Problems related to release from long-term Z65.2 [place] [id number] [place] [address] 60793- 7233 Feb, Post-traumatic stress disorder, unspecified F43.10 ; Major depressive disorder, recurrent, moderate F33.1 and Problems related to release from long-term Z65.2 [place] [id number] [place] [address] 89899- 3725 Feb, Chronic tension headaches G44.229 [place] [id number] [place] [address] 42558- 4256 17 Feb, 2016 Sleep apnea, obstructive G47.33 [...] pacemaker replacement I49.9 and Primary insomnia F51.01 [place] [address] 95474- 1969 17 Feb, 2016 Post-traumatic stress disorder, unspecified F43.10 and Chronic pain G89.[address] 04180- 7991 13 Feb, 2016 [facility] [address] [id number] Feb, Dental caries K02.[address] 70484- 6128 06 Feb, 2016 [place] [address] 79879- 5975 Feb, Post-traumatic stress disorder, unspecified F43.10 ; Major depressive disorder, recurrent, moderate F33.1 and Problems related to release from long-term Z65.2 [place] [address] 35277- 3178 Jan, Sleep apnea, obstructive G47.33 and Chronic pain G89.[address] 72418- 4313 Jan, [address] 94322- 3269 14 Jan, 2016 Dental examination Z01.[address] 92176- 2611 Jan, [place] [address] [address]- 1200 Jan, [place] [id number] [place] [address] 43864- 5932 Dec, Post-traumatic stress disorder, unspecified F43.10 ; Major depressive disorder, recurrent, moderate F33.1 and Problems related to release from long-term Z65.2 [place] [id number] [place] [address] 39933- 0622 Dec, Encounter for immunization Z23 ; Problems related to release from long-term Z65.2 ; Sleep apnea, obstructive G47.33 and Post-traumatic stress disorder, chronic F43.12 [place] [id number] [place] [address] 70979- 1163 Dec, Sleep apnea, obstructive G47.33 ; Hyperlipidemia E78.5 ; Chronic pain G89.29 ; Glaucoma H40.9 ; HTN (hypertension) I10 ; Post-traumatic stress disorder, unspecified F43.10 ; Anxiety F41.9 ; Chronic tension headaches G44.229 ; Mitral valve prolapse I34.1 and CAD (coronary artery disease) I25.10 [address] [place] [address] 79556- 5589 Dec, Post-traumatic stress disorder, unspecified F43.10 ; Major depressive disorder, recurrent, moderate F33.1 and Problems related to release from long-term Z65.2 [place] [address] [place] [address] 16345- 3373 Nov, Chronic pain G89.29 [address] [place] [address] 72558- 8073 Nov, Post-traumatic stress disorder, unspecified F43.10 ; Major depressive disorder, recurrent, moderate F33.1 and Problems related to release from long-term Z65.2 [place] [address] [address]- 5541 Oct, [address] [place] [address]- 2047 23 Oct, 2015 [facility] [id number] [place] [address] 77565- 5764 16 Oct, 2015 Post-traumatic stress disorder, unspecified F43.10 ; Major depressive disorder, recurrent, moderate F33.1 and Problems related to release from long-term Z65.2 [facility] [id number] [place] [address] 72181- 1583 08 Oct, 2015 [facility] [id number] [place] [address] 70205- 7617 07 Oct, 2015 Environmental allergies Z91.09 ; Cough R05 and 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 [facility] [id number] [place] [address] 55204- 5691 Sep, [facility] [id number] [place] [address] 84234- 8437 Sep, Post-traumatic stress disorder, unspecified F43.10 ; Major depressive disorder, recurrent, moderate F33.1 and Problems related to release from long-term Z65.2 [facility] [id number] [place] [address] 08884- 8016 Sep, Chronic pain G89.29 [facility] [id number] [place] [address] 79182- 1348 Sep, Pain in left shoulder M25.512 ; Pain in right shoulder M25.511 and Other chronic pain G89.29 [facility] [id number] [place] [address] 76342- 6507 Sep, [facility] [id number] [place] [address] 08417- 0341 Sep, [facility] [id number] [place] [address] 71929- 1748 Sep, [facility] [id number] [place] [address] [id number] Aug, Dental examination Z01.20 [facility] [address] [address]- 7735 Aug, Post-traumatic stress disorder, unspecified F43.10 ; Open- angle glaucoma of both 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 and Problems related to release from long-term Z65.2 [facility] [address] [place] [address]- 3047 Aug, [facility] [id number] [place] [address] 78650- 8532 Aug, Sleep apnea, obstructive G47.33 ; Obesity E66.9 ; Hyperlipidemia E78.5 ; Bilateral headaches R51 ; HTN (hypertension) I10 ; Post- traumatic stress disorder, unspecified F43.10 ; Anxiety F41.9 ; Neuropathy G62.9 ; Glaucoma H40.9 and Chronic pain G89.29 [facility] [address] [place] [address] [id number] Aug, Encounter for dental examination Z01.20 [facility] [id number] [place] [address] 32422- 4310 Aug, Post-traumatic stress disorder, unspecified F43.10 ; Major depressive disorder, recurrent, moderate F33.1 and Problems related to release from long-term Z65.2 [facility] [address] [address]- 0514 Aug, [facility] [id number] [place] [address] 81141- 0530 Jul, [facility] [id number] [place] [address] 95842- 2007 Jul, Post-traumatic stress disorder, unspecified F43.10 and Major depressive disorder, recurrent, moderate F33.1 [facility] [id number] [place] [address] 29627- 3761 Jul, [facility] [address], [place] [address]- 4257 Jul, [facility] [id number] [place] [address] 67490- 0832 Jul, Chronic pain G89.29 [facility] [id number] [place] [address] 44755- 1301 June, Post-traumatic stress disorder, unspecified F43.10 and Major depressive disorder, recurrent, moderate F33.1 [facility] [id number] [place] [address] 06003- 3038 June, [facility] [id number] [place] [address] 19396- 8490 June, Chronic pain G89.29 [place] [id number] [place] [address] 33714- 4781 June, Post-traumatic stress disorder, unspecified F43.10 and Major depressive disorder, recurrent, moderate F33.1 [place] [id number] [place] [address] 20484- 8960 May, Post-traumatic stress disorder, unspecified F43.10 and Major depressive disorder, recurrent, moderate F33.1 [place] [id number] [place] [address] 49860- 3284 May, [facility] [id number] [place] [address] 86106- 0911 May, [place] [id number] [place] [address] 86229- 1374 May, [facility] [id number] [place] [address] 29522- 3896 Apr, [facility] [id number] [place] [address] 72183- 2212 Apr, Post-traumatic stress disorder, unspecified F43.10 and Sleep apnea, obstructive G47.33 [facility] [id number] [place] [address] 65230- 3736 Apr, [facility] [id number] [place] [address] 58239- 2014 Apr, Shoulder pain, left M25.512 [facility] [id number] [place] [address] 56495- 9871 Apr, Post-traumatic stress disorder, unspecified F43.10 and Major depressive disorder, recurrent, moderate F33.1 [facility] [id number] [place] [address] 87276- 2286 17 Apr, 2015 [facility] [id number] [place] [address] 35504- 3261 Apr, [facility] [id number] [place] [address] 15774- 9229 Apr, [facility] [id number] [place] [address] 96207- 2196 Apr, Left shoulder pain M25.512 [facility] [id number] [place] [address] 20729- 2747 Mar, [facility] [id number] [place] [address] 68209- 5942 Mar, [facility] [id number] [place] [address] 97873- 9631 Mar, [facility] [id number] [place] [address] 28160- 1813 12 Mar, 2015 Sleep apnea, obstructive G47.33 ; Obesity E66.9 ; Chronic pain G89.29 ; Hyperlipidemia E78.5 ; HTN (hypertension) I10 ; 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 ; Major depressive disorder, recurrent, moderate F33.1 and Anxiety F41.9 [facility] [id number] [place] [address] 25595- 5104 Mar, [facility] [id number] [place] [address] 13829- 3039 Mar, Post-traumatic stress disorder, unspecified F43.10 and Major depressive disorder, recurrent, moderate F33.1 [facility] [id number] [place] [address] 72494- 2614 Mar, [place] [address] 391125- 3995 Mar, HTN (hypertension) I10 ; 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 ; Obesity E66.9 ; Hyperlipidemia E78.5 ; Glaucoma H40.9 ; Chronic pain G89.29 and CAD (coronary artery disease) I25.10 [place] [address] 42016- 2354 Feb, [place] [address] 09056- 7488 Feb, Post-traumatic stress disorder, unspecified F43.10 ; Obesity E66.9 ; Sleep apnea, obstructive G47.33 and 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 [address] 61340- 2720 Feb, Post-traumatic stress disorder, unspecified F43.10 and Major depressive disorder, recurrent, moderate F33.[address] 02768- 1189 Feb, [place] [address] 93532- 6670 Feb, [address] 91861- 8431 Feb, HTN (hypertension) I10 ; Post-traumatic stress disorder, unspecified F43.10 ; 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 ; Obesity E66.9 ; Hyperlipidemia E78.5 ; Chronic pain G89.29 ; Glaucoma H40.9 ; Mitral valve prolapse I34.1 and Bilateral headaches R51 [place] [address] 37948- 0264 Feb, [address] 82345- 5252 Feb, Post-traumatic stress disorder, unspecified F43.10 and Major depressive disorder, recurrent, moderate F33.1 [place] [id number] [place] [address] 84251- 7893 Feb, [place] [id number] [place] [address] 53326- 3440 Feb, [place] [id number] [place] [address] 28058- 7392 Jan, [place] [id number] [place] [address] 79595- 8249 Jan, [place] [id number] [place] [address] 45521- 8714 Jan, Obesity E66.9 ; HTN (hypertension) I10 ; 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 ; Major depressive disorder, recurrent, moderate F33.1 ; Glaucoma H40.9 ; Hyperlipidemia E78.5 ; Sleep apnea, obstructive G47.33 ; Chronic pain G89.29 ; Anxiety F41.9 ; Chronic tension headaches G44.229 and Cough R05 [place] [id number] [place] [address] 69537- 6663 Jan, [place] [id number] [place] [address] 05799- 1665 Jan, [place] [id number] [place] [address] 31113- 9334 Jan, Post-traumatic stress disorder, unspecified F43.10 ; Obesity E66.9 ; Sleep apnea, obstructive G47.33 and 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 [place] [id number] [place] [address] 99307- 9201 Jan, [place] [id number] [place] [address]- [address]69 Jan, Post-traumatic stress disorder, unspecified F43.10 and Major depressive disorder, recurrent, moderate F33.1 [place] [id number] [place] [address] 13586- 6859 Dec, [facility] [id number] [place] [address] 94149- 6600 Dec, Sleep apnea, obstructive G47.33 ; Obesity E66.9 ; Hyperlipidemia E78.5 ; Glaucoma H40.9 ; Chronic pain G89.29 ; HTN (hypertension ) I10 ; 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 ; Anxiety F41.9 and CAD (coronary artery disease) I25.10 [facility] [address] 03440- 4468 Nov, [facility] [address] 81250- 6713 Nov, [facility] [id number] [place] [address] 53952- 0543 Nov, [facility] [address] [address] 51033- 1482 Nov, [facility] [id number] [place] [address] 47988- 9375 Nov, [facility] [address] [place] [id number] [place] [address] 22399- 5728 Nov, Encounter for immunization Z23 ; Sleep apnea, obstructive G47.33 ; Obesity E66.9 ; Hyperlipidemia E78.5 ; Glaucoma H40.9 ; Chronic pain G89.29 ; Anxiety F41.9 ; Chronic tension headaches G44.229 and HTN (hypertension ) I10 [facility] [id number] [place] [address] 97304- 8166 Nov, [facility] [address] 80682- 1132 Nov, [facility] [address] 72556- 4813 Nov, Dizziness R42 [facility] [id number] [place] [address] 73653- 6259 Nov, [place] [address] [address]- 3230 Oct, [facility] [id number] [place] [address] 59575- 4884 Oct, [facility] [id number] [place] [address] 55097- 7323 Oct, [facility] [id number] [place] [address] 88205- 5531 Oct, [facility] [id number] [place] [address] 68422- 6166 Oct, Dizziness 780.4 ; Essential hypertension 401.9 ; Obesity 278.00 ; Hyperlipidemia 272.4 ; Chronic pain 338.29 ; Glaucoma 365.9 and Anxiety 300.00 [place] [id number] [place] [address] 98305- 5643 Oct, Essential hypertension 401.9 ; Hyperlipidemia 272.4 ; Glaucoma 365.9 ; Obesity 278.00 ; Chronic pain 338.29 and Allergy to insects V15.06 [facility] [id number] [place] [address] 95695- 1351 Sep, [facility] [id number] [place] [address] 51397- 1409 Sep, [facility] [address] [address]- 4096 Sep, [place] [id number] [place] [address] 67521- 1523 Sep, [facility] [id number] [place] [address] 48658- 7938 Aug, Essential hypertension 401.9 ; Obesity 278.00 ; Hyperlipidemia 272.4 ; Glaucoma 365.9 ; Lipoma 214.9 ; Mitral valve prolapse 424.0 ; Angina at rest 413.9 ; Lymphedema 457.1 and Chronic pain 338.29 IMMUNIZATIONS No Known Immunizations SOCIAL HISTORY Never Assessed REASON FOR VISIT PLAN OF CARE VITAL SIGNS MEDICATIONS Medication Instructions Dosage Frequency Start Date End Date Duration Status Topamax 100 mg Orally Twice a day 1 tablet 12h 90 Active RESULTS No Results PROCEDURES No Known [...]
--- OUTSIDE RECORDS SUMMARY | 2018-02-04 13:51 | XMS REPORT ---
Author Author [facility] Address [address] [place] [address] Care Team Providers Care Information Consultant Name Role Phone [facility] Unavailable PROBLEMS Type Condition ICD9-CM Code OKD54-FS Code Onset Dates Condition Status SNOMED Code Problem CAD (coronary artery disease) I25.10 Active 27794806 Problem Encounter for dental examination Z01.20 Active 806495398 Problem Shoulder pain, left M25.512 Active 09851266 Problem Post-traumatic stress disorder, unspecified F43.10 Active 38700776 Problem Hyperlipidemia E78.5 Active 61242830 Problem Primary insomnia F51.01 Active 5762674 Problem Obesity E66.9 Active 408452935 Problem Chronic pain G89.29 Active 84301916 Problem Post-traumatic stress disorder, chronic F43.12 Active 273519562 Problem Bilateral headaches R51 Active 504351574 Problem Arrhythmia as indication for cardiac pacemaker replacement I49.9 Active 07755266 Problem Environmental allergies Z91.09 Active 744620167 Problem 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 Active 609422505 Problem HTN (hypertension) I10 Active 29850902 Problem Glaucoma H40.9 Active 00847809 Problem Problems related to release from [facility] Z65.2 Active 12129577 Problem Anxiety F41.9 Active 13078889 Problem Major depressive disorder, recurrent, moderate F33.1 Active 78273552 Problem Chronic tension headaches G44.229 Active 075220404 Problem 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 Active 88911515 Problem Sleep apnea, obstructive G47.33 Active 11865591 Problem Cough R05 Active 57580852 Problem Mitral valve prolapse I34.1 Active 444867045 ALLERGIES Unknown Allergies SOCIAL HISTORY No smoking Hx information available PLAN OF CARE Activity Details Follow Up 2 Weeks Reason: VITAL SIGNS MEDICATIONS Unknown Medications RESULTS No Results PROCEDURES Procedure Date Ordered Related Diagnosis Body Site Psychotherapy, patient &/family, 45 minutes, established patient Feb 11, 2016 IMMUNIZATIONS No Known Immunizations
--- OUTSIDE RECORDS SUMMARY | 2018-02-04 13:51 | XMS REPORT ---
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 Name Role Phone EDUIN Ramos Unavailable PROBLEMS Type Condition ICD9-CM Code [id number] Code Onset Dates Condition Status SNOMED Code Problem Environmental allergies Z91.09 Active 923195074 Problem Primary insomnia F51.01 Active 3939307 Problem Arrhythmia as indication for cardiac pacemaker replacement I49.9 Active 54842736 Problem Chronic pain syndrome G89.4 Active 376608958 Problem Sleep apnea, obstructive G47.33 Active 13235105 Problem Migraine without aura and without status migrainosus, not intractable G43.009 Active 653870490 Problem Hyperlipidemia E78.5 Active 98288111 Problem Myocarditis, unspecified chronicity, 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 Active 89377526 Problem Other male erectile dysfunction N52.8 Active 388660784 Problem Morbid (severe) obesity due to excess calories E66.01 Active 624804050 Problem 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 Active 459678587 Problem Body mass index (BMI) of 40.0-44.9 in adult Z68.41 Active 804898260 Problem 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 Active 513489600 Problem Chronic tension headaches G44.229 Active 628122912 Problem Chronic pain G89.29 Active 06470560 Problem HTN (hypertension) I10 Active 64204768 Problem 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 Active 39098689 Problem Mitral valve prolapse I34.1 Active 533902067 Problem Anxiety F41.9 Active 68082381 Problem CAD (coronary artery disease) I25.10 Active 09120291 Problem Major depressive disorder, recurrent, moderate F33.1 Active 35942730 Problem Post-traumatic stress disorder, chronic F43.12 Active [id number] ALLERGIES No Information ENCOUNTERS Encounter Location Date Diagnosis [facility] [address] [facility] [id number] [place] [address] 35451- 6310 May, [facility] [id number] [place] [address] 30705- 5253 May, [facility] [id number] [place] [address] 76738- 1757 Apr, [facility] [address] 56045- 0850 Apr, [facility] [address] 82430- 0416 Apr, [facility] [address] 62096- 1792 Apr, Left leg pain M79.605 [place] [address] 00751- 3453 13 Apr, 2017 Post-traumatic stress disorder, unspecified F43.10 ; Major depressive disorder, recurrent, moderate F33.1 and Problems related to release from chcf Z65.2 [facility] [id number] [place] [address] 59177- 6866 12 Apr, 2017 [facility] [id number] [place] [address] 14188- 4473 12 Apr, 2017 Chronic pain G89.29 ; 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 ; Morbid (severe) obesity due to excess calories E66.01 ; Anxiety F41.9 and BMI 40.0-44.9, adult Z68.41 [facility] [id number] [place] [address] 32228 -0715 10 Apr, 2017 Sore throat J02.9 and BMI 40.0-44.9, adult Z68.41 [facility] [id number] [place] [address] 55736- 6727 02 Apr, 2017 Left leg pain M79.605 [facility] [id number] [place] [address] [id number] Mar, Dental examination Z01.20 [facility] [id number] [place] [address] 04224- 3562 Mar, [facility] [address] 27606 -0196 Mar, Cough R05 ; Viral gastroenteritis A08.4 and BMI 40.0-44.9, adult Z68.41 [place] [address] 60956- 3928 Mar, Left leg pain M79.605 [place] [address] 43497- 3908 Mar, Post-traumatic stress disorder, unspecified F43.10 ; Major depressive disorder, recurrent, moderate F33.1 and Problems related to release from chcf Z65.2 [place] [address] 83568- 5802 Feb, Left leg pain M79.605 [place] [address] 96673- 5053 Feb, [place] [address] 12864- 0667 Feb, BMI 40.0-44.9, adult Z68.41 ; Chronic pain syndrome G89.4 ; Migraine without aura and without status migrainosus, not intractable G43.009 ; Mitral valve prolapse I34.1 and 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 [place] [address] 48334- 6865 Feb, Post-traumatic stress disorder, chronic F43.12 ; Anxiety F41.9 ; Problems related to release from chcf Z65.2 and BMI 40.0-44.9, adult Z68.41 [place] [address] 10965- 7644 Feb, Post-traumatic stress disorder, unspecified F43.10 ; Major depressive disorder, recurrent, moderate F33.1 and Problems related to release from chcf Z65.2 [place] [address] [place] [address] 85687- 6670 Feb, Left leg pain M79.605 [facility] [id number] [place] [address] 15849- 4326 Jan, Post-traumatic stress disorder, unspecified F43.10 ; Major depressive disorder, recurrent, moderate F33.1 and Problems related to release from chcf Z65.2 [facility] [id number] [place] [address] 64422- 1577 Jan, [facility] [id number] [place] [address] 37141- 1495 Jan, [facility] [id number] [place] [address] 27358- 7288 Jan, Anxiety F41.9 [facility] [id number] [place] [address] 38226- 6189 Jan, Left leg pain M79.605 [facility] [id number] [place] [address] 24342- 7666 Dec, Left leg pain M79.605 [facility] [id number] [place] [address] 70219- 9193 Dec, [facility] [id number] [place] [address] 58798- 4288 Dec, Post-traumatic stress disorder, unspecified F43.10 ; Major depressive disorder, recurrent, moderate F33.1 and Problems related to release from chcf Z65.2 [facility] [id number] [place] [address] 28858- 9007 Nov, Chronic pain G89.29 and Anxiety F41.9 [facility] [id number] [place] [address] 06920- 5025 24 Nov, 2016 Chronic pain G89.29 and Anxiety F41.9 [facility] [id number] [place] [address] 88764- 6316 16 Nov, 2016 Post-traumatic stress disorder, unspecified F43.10 ; Major depressive disorder, recurrent, moderate F33.1 and Problems related to release from chcf Z65.2 [facility] [id number] [place] [address] 06762- 2641 09 Nov, 2016 Other abnormal findings in specimens from other organs, systems and tissues R89.8 ; Other male erectile dysfunction N52.8 ; Body mass index (BMI) of 40.0-44.9 in adult Z68.41 and Morbid (severe) obesity due to excess calories E66.01 [place] [id number] [place] [address] 42122- 6860 02 Nov, 2016 Post-traumatic stress disorder, unspecified F43.10 ; Major depressive disorder, recurrent, moderate F33.1 and Problems related to release from chcf Z65.2 [facility] [id number] [place] [address] [id number] 29 Oct, 2016 Dental examination Z01.20 [place] [id number] [place] [address] 71279- 5615 Oct, [place] [id number] [place] [address] 40989- 6836 Oct, Encounter for immunization Z23 [place] [id number] [place] [address] 45498- 2797 Oct, Chronic pain G89.29 ; Anxiety F41.9 ; Arrhythmia as indication for cardiac pacemaker replacement I49.9 and Glaucoma H40.9 [facility] [id number] [place] [address] 00788- 5761 Oct, Anxiety F41.9 ; Post-traumatic stress disorder, chronic F43.12 and Problems related to release from chcf Z65.2 [facility] [id number] [place] [address] 15635- 6146 07 Oct, 2016 Post-traumatic stress disorder, unspecified F43.10 ; Major depressive disorder, recurrent, moderate F33.1 and Problems related to release from chcf Z65.2 [place] [id number] [address]- 4297 Sep, Chronic pain G89.29 and Anxiety F41.9 [place] [id number] [place] [address] 50142- 2790 Sep, Post-traumatic stress disorder, unspecified F43.10 ; Major depressive disorder, recurrent, moderate F33.1 and Problems related to release from chcf Z65.2 [place] [id number] [place] [address] 34872- 3270 Sep, Post-traumatic stress disorder, unspecified F43.10 ; Major depressive disorder, recurrent, moderate F33.1 and Problems related to release from chcf Z65.2 [place] [id number] [place] [address] 22816- 6594 Sep, Chronic pain G89.29 [place] [id number] [place] [address] 04087- 6755 Aug, Dental caries, unspecified K02.[address] [place] [address] 21840- 9492 Aug, Sleep apnea, obstructive G47.33 ; Obesity E66.9 ; Chronic pain G89.29 ; HTN (hypertension) I10 ; Major depressive disorder, recurrent, moderate F33.1 ; Anxiety F41.9 ; Chronic tension headaches G44.229 ; Mitral valve prolapse I34.1 ; Arrhythmia as indication for cardiac pacemaker replacement I49.9 ; Dental caries, unspecified K02.9 ; Primary insomnia F51.01 and Hyperlipidemia E78.5 [address] [place] [address] 58664- 4853 Aug, Post-traumatic stress disorder, unspecified F43.10 ; Major depressive disorder, recurrent, moderate F33.1 and Problems related to release from chcf Z65.2 [address] [address]- 2779 Aug, Dental examination Z01.20 [facility] [id number] [place] [address] [id number] Aug, Dental examination Z01.20 [place] [id number] [place] [address] 08689- 2792 06 Aug, 2016 Post-traumatic stress disorder, unspecified F43.10 ; Major depressive disorder, recurrent, moderate F33.1 and Problems related to release from chcf Z65.2 [place] [id number] [place] [address] 12530- 0733 Aug, Chronic pain G89.29 and Primary insomnia F51.01 [place] [id number] [place] [address] 56991- 9244 Jul, [place] [id number] [place] [address] 06774- 7171 Jul, [place] [id number] [place] [address] 06654- 4145 Jul, Nausea R11.0 [place] [id number] [place] [address] 90321- 4254 Jul, Arrhythmia as indication for cardiac pacemaker replacement I49.9 [place] [id number] [place] [address] 56617- 8846 Jul, Post-traumatic stress disorder, unspecified F43.10 ; Major depressive disorder, recurrent, moderate F33.1 and Problems related to release from chcf Z65.2 [place] [id number] [place] [address] 33384- 9060 09 Jul, 2016 Anxiety F41.9 [place] [id number] [place] [address] 77857- 1640 08 Jul, 2016 Chronic pain G89.29 [place] [id number] [place] [address] 89152- 0348 Jul, Sleep apnea, obstructive G47.33 ; Hyperlipidemia E78.5 ; Chronic pain G89.29 ; 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 ; Major depressive disorder, recurrent, moderate F33.1 ; Anxiety F41.9 ; Mitral valve prolapse I34.1 ; Arrhythmia as indication for cardiac pacemaker replacement I49.9 ; Primary insomnia F51.01 ; Bilateral headaches R51 and Environmental allergies Z91.09 [place] [address] 76236- 5368 Jul, Post-traumatic stress disorder, unspecified F43.10 ; Major depressive disorder, recurrent, moderate F33.1 and Problems related to release from chcf Z65.2 [place] [address] 18563- 8722 June, Post-traumatic stress disorder, chronic F43.12 ; Anxiety F41.9 ; Problems related to release from chcf Z65.2 ; Sleep apnea, obstructive G47.33 and Primary insomnia F51.01 [place] [id number] [place] [address] 25389- 9451 June, [place] [address] 65775- 4702 June, [place] [address] 84848- 8665 June, [place] [address] 50591- 3622 June, Chronic pain G89.29 [place] [id number] [place] [address] 58225- 2935 June, Chronic pain G89.29 [place] [id number] [place] [address] 82309- 5362 June, Lipoma of left lower extremity D17.24 ; Open wound T14.8 and Swelling of left lower extremity M79.[address] 96926- 3824 June, Post-traumatic stress disorder, unspecified F43.10 ; Major depressive disorder, recurrent, moderate F33.1 and Problems related to release from chcf Z65.2 [place] [address] 18866- 2726 May, Lipoma of left lower extremity D17.24 ; Major depressive disorder, recurrent, moderate F33.1 ; Sleep apnea, obstructive G47.33 ; Hyperlipidemia E78.5 ; Obesity E66.9 ; HTN (hypertension) I10 ; Glaucoma H40.9 ; CAD (coronary artery disease) I25.10 ; Chronic tension headaches G44.229 ; Chronic pain G89.29 ; Anxiety F41.9 ; Nausea R11.0 and Primary insomnia F51.[address] 28252- 9625 May, [address] 48959- 9544 May, Chronic pain G89.[address] 67062- 7218 May, [address] 73493- 7589 31 Apr, 2016 Post-traumatic stress disorder, unspecified F43.10 ; Major depressive disorder, recurrent, moderate F33.1 and Problems related to release from chcf Z65.[address] 70290- 1350 28 Apr, 2016 Primary insomnia F51.01 ; Post-traumatic stress disorder, chronic F43.12 and Problems related to release from chcf Z65.2 [place] [id number] [place] [address] 86965- 5375 17 Apr, 2016 Post-traumatic stress disorder, unspecified F43.10 ; Major depressive disorder, recurrent, moderate F33.1 and Problems related to release from chcf Z65.[address] 22635- 3788 Apr, [address] 75918- 8642 Apr, Sleep apnea, obstructive G47.33 ; Chronic pain G89.29 ; HTN (hypertension) I10 ; Mitral valve prolapse I34.1 ; Shoulder pain, left M25.512 ; Arrhythmia as indication for cardiac pacemaker replacement I49.9 ; Glaucoma H40.9 ; Bilateral headaches R51 ; Environmental allergies Z91.09 ; Primary insomnia F51.01 and Nausea R11.0 [place] [id number] [address]- 2486 Apr, [place] [id number] [place] [address] 67598- 7510 Apr, [place] [id number] [place] [address] 02654- 3846 Apr, Post-traumatic stress disorder, unspecified F43.10 ; Major depressive disorder, recurrent, moderate F33.1 and Problems related to release from chcf Z65.2 [place] [id number] [place] [address] 25911- 9136 Apr, HTN (hypertension) I10 [place] [id number] [place] [address] 95201- 0649 Apr, HTN (hypertension) I10 [place] [id number] [place] [address] 20765- 4975 14 Mar, 2016 Chronic pain G89.29 ; Primary insomnia F51.01 and Problems related to release from chcf Z65.2 [place] [address] [place] [address] 73300- 8963 07 Mar, 2016 Post-traumatic stress disorder, unspecified F43.10 ; Major depressive disorder, recurrent, moderate F33.1 and Problems related to release from chcf Z65.2 [place] [address] [place] [address] 46137- 2000 Feb, Post-traumatic stress disorder, unspecified F43.10 ; Major depressive disorder, recurrent, moderate F33.1 and Problems related to release from chcf Z65.2 [place] [address] [place] [address] 17255- 5406 Feb, Chronic tension headaches G44.229 [place] [id number] [place] [address] 91807- 2182 17 Feb, 2016 Sleep apnea, obstructive G47.33 ; Obesity E66.9 ; Hyperlipidemia E78.5 ; Glaucoma H40.9 ; Chronic pain G89.29 ; HTN (hypertension ) I10 ; 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 ; 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 ; Chronic tension headaches G44.229 ; Cough R05 ; CAD (coronary artery disease) I25.10 ; Problems related to release from chcf Z65.2 ; Arrhythmia as indication for cardiac pacemaker replacement I49.9 and Primary insomnia F51.01 [place] [address] 24212- 6496 17 Feb, 2016 Post-traumatic stress disorder, unspecified F43.10 and Chronic pain G89.[address] 46887- 9993 13 Feb, 2016 [facility] [address] [id number] Feb, Dental caries K02.[address] 39896- 2706 06 Feb, 2016 [place] [address] 52829- 3851 Feb, Post-traumatic stress disorder, unspecified F43.10 ; Major depressive disorder, recurrent, moderate F33.1 and Problems related to release from chcf Z65.2 [place] [address] 60077- 7583 Jan, Sleep apnea, obstructive G47.33 and Chronic pain G89.[address] 10636- 4391 Jan, [address] 87938- 6516 14 Jan, 2016 Dental examination Z01.[address] 08061- 8180 Jan, [place] [address], [place] [address]- 9950 Jan, [place] [id number] [place] [address] 79511- 0060 Dec, Post-traumatic stress disorder, unspecified F43.10 ; Major depressive disorder, recurrent, moderate F33.1 and Problems related to release from chcf Z65.2 [place] [id number] [place] [address] 79408- 0650 Dec, Encounter for immunization Z23 ; Problems related to release from chcf Z65.2 ; Sleep apnea, obstructive G47.33 and Post-traumatic stress disorder, chronic F43.12 [place] [id number] [place] [address] 52689- 3612 Dec, Sleep apnea, obstructive G47.33 ; Hyperlipidemia E78.5 ; Chronic pain G89.29 ; Glaucoma H40.9 ; HTN (hypertension) I10 ; Post-traumatic stress disorder, unspecified F43.10 ; Anxiety F41.9 ; Chronic tension headaches G44.229 ; Mitral valve prolapse I34.1 and CAD (coronary artery disease) I25.[address] [place] [address] 46484- 4813 Dec, Post-traumatic stress disorder, unspecified F43.10 ; Major depressive disorder, recurrent, moderate F33.1 and Problems related to release from chcf Z65.2 [place] [address] [place] [address] 08856- 8444 Nov, Chronic pain G89.29 [address] [place] [address] 76501- 2233 Nov, Post-traumatic stress disorder, unspecified F43.10 ; Major depressive disorder, recurrent, moderate F33.1 and Problems related to release from chcf Z65.2 [place] [address], [place] [address]- 0051 Oct, [address] [place] [address]- 1917 23 Oct, 2015 [facility] [id number] [place] [address] 61596- 5620 16 Oct, 2015 Post-traumatic stress disorder, unspecified F43.10 ; Major depressive disorder, recurrent, moderate F33.1 and Problems related to release from chcf Z65.2 [facility] [id number] [place] [address] 31441- 4015 08 Oct, 2015 [facility] [id number] [place] [address] 30484- 9822 07 Oct, 2015 Environmental allergies Z91.09 ; Cough R05 and 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 [facility] [id number] [place] [address] 97214- 9779 Sep, [facility] [id number] [place] [address] 71002- 5335 Sep, Post-traumatic stress disorder, unspecified F43.10 ; Major depressive disorder, recurrent, moderate F33.1 and Problems related to release from chcf Z65.2 [facility] [id number] [place] [address] 08882- 4844 Sep, Chronic pain G89.29 [facility] [id number] [place] [address] 22162- 5482 Sep, Pain in left shoulder M25.512 ; Pain in right shoulder M25.511 and Other chronic pain G89.29 [facility] [address] [place] [address] 06185- 8709 Sep, [facility] [id number] [place] [address] 37133- 7964 Sep, [facility] [id number] [place] [address] 61495- 5725 Sep, [facility] [address] [place] [address] [id number] Aug, Dental examination Z01.20 [facility] [address], [place] [address]- 3584 Aug, Post-traumatic stress disorder, unspecified F43.10 ; Open- angle glaucoma of both 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 and Problems related to release from chcf Z65.2 [facility] [address], [place] [address]- 0142 Aug, [facility] [id number] [place] [address] 30737- 8760 Aug, Sleep apnea, obstructive G47.33 ; Obesity E66.9 ; Hyperlipidemia E78.5 ; Bilateral headaches R51 ; HTN (hypertension) I10 ; Post- traumatic stress disorder, unspecified F43.10 ; Anxiety F41.9 ; Neuropathy G62.9 ; Glaucoma H40.9 and Chronic pain G89.29 [facility] [address] [place] [address] [id number] Aug, Encounter for dental examination Z01.20 [facility] [id number] [place] [address] 17953- 2351 Aug, Post-traumatic stress disorder, unspecified F43.10 ; Major depressive disorder, recurrent, moderate F33.1 and Problems related to release from chcf Z65.2 [facility] [address], [place] [address]- 5478 Aug, [facility] [address] [place] [address] 32874- 5511 Jul, [facility] [id number] [place] [address] 82930- 5550 Jul, Post-traumatic stress disorder, unspecified F43.10 and Major depressive disorder, recurrent, moderate F33.1 [facility] [address] [place] [address] 43502- 3139 Jul, [facility] [address], [place] [address]- 8517 Jul, [facility] [id number] [place] [address] 61129- 9370 Jul, Chronic pain G89.29 [facility] [id number] [place] [address] 80630- 9729 June, Post-traumatic stress disorder, unspecified F43.10 and Major depressive disorder, recurrent, moderate F33.1 [facility] [id number] [place] [address] 63595- 5406 June, [facility] [id number] [place] [address] 82340- 0724 June, Chronic pain G89.29 [place] [id number] [place] [address] 58109- 7739 June, Post-traumatic stress disorder, unspecified F43.10 and Major depressive disorder, recurrent, moderate F33.1 [place] [id number] [place] [address] 52831- 4267 May, Post-traumatic stress disorder, unspecified F43.10 and Major depressive disorder, recurrent, moderate F33.1 [place] [id number] [place] [address] 62274- [id number] May, [facility] [id number] [place] [id number] [id number] May, [facility] [id number] [place] [address] [phone] May, [facility] [id number] [place] [address] [id number] [phone] Apr, [facility] [id number] [place] [address] 61654- 3204 Apr, Post-traumatic stress disorder, unspecified F43.10 and Sleep apnea, obstructive G47.33 [facility] [id number] [place] [address] 06855- 2502 Apr, [facility] [id number] [place] [address] 97264- 8341 Apr, Shoulder pain, left M25.512 [facility] [id number] [place] [address] 59848- 7236 Apr, Post-traumatic stress disorder, unspecified F43.10 and Major depressive disorder, recurrent, moderate F33.1 [facility] [id number] [place] [address] 65580- 8078 17 Apr, 2015 [facility] [id number] [place] [address] 60245- 5129 Apr, [facility] [id number] [place] [address] 92330- 2344 Apr, [facility] [id number] [place] [address] 32795- 8779 Apr, Left shoulder pain M25.512 [facility] [id number] [place] [address] 19140- 1279 Mar, [facility] [id number] [place] [address] 66849- 5860 Mar, [facility] [id number] [place] [address] 58109- 5666 Mar, [facility] [address] [place] [address] 42289- 5039 12 Mar, 2015 Sleep apnea, obstructive G47.33 ; Obesity E66.9 ; Chronic pain G89.29 ; Hyperlipidemia E78.5 ; HTN (hypertension) I10 ; 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 ; Major depressive disorder, recurrent, moderate F33.1 and Anxiety F41.9 [facility] [address] [place] [address] 15821- 4132 Mar, [facility] [id number] [place] [address] 49847- 8871 Mar, Post-traumatic stress disorder, unspecified F43.10 and Major depressive disorder, recurrent, moderate F33.1 [facility] [id number] [place] [address] 31538- 5312 Mar, [place] [address] 484673- 2010 Mar, HTN (hypertension) I10 ; 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 ; Obesity E66.9 ; Hyperlipidemia E78.5 ; Glaucoma H40.9 ; Chronic pain G89.29 and CAD (coronary artery disease) I25.10 [place] [address] 11052- 1729 Feb, [place] [address] 26388- 4930 Feb, Post-traumatic stress disorder, unspecified F43.10 ; Obesity E66.9 ; Sleep apnea, obstructive G47.33 and 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 [address] 9[address]36- 1933 Feb, Post-traumatic stress disorder, unspecified F43.10 and Major depressive disorder, recurrent, moderate F33.[address] 78644- 4363 Feb, [place] [address] 45199- 7422 Feb, [address] 91515- 4609 Feb, HTN (hypertension) I10 ; Post-traumatic stress disorder, unspecified F43.10 ; 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 ; Obesity E66.9 ; Hyperlipidemia E78.5 ; Chronic pain G89.29 ; Glaucoma H40.9 ; Mitral valve prolapse I34.1 and Bilateral headaches R51 [place] [address] 89639- 1767 Feb, [address] 39411- 0839 Feb, Post-traumatic stress disorder, unspecified F43.10 and Major depressive disorder, recurrent, moderate F33.1 [place] [address] [place] [address] 34629- 8685 Feb, [place] [id number] [place] [address] 34003- 8241 Feb, [place] [id number] [place] [address] 15514- 1494 Jan, [place] [id number] [place] [address] 54223- 0305 Jan, [place] [id number] [place] [address] 21940- 5723 Jan, Obesity E66.9 ; HTN (hypertension) I10 ; 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 ; Major depressive disorder, recurrent, moderate F33.1 ; Glaucoma H40.9 ; Hyperlipidemia E78.5 ; Sleep apnea, obstructive G47.33 ; Chronic pain G89.29 ; Anxiety F41.9 ; Chronic tension headaches G44.229 and Cough R05 [place] [id number] [place] [address] 81232- 4563 Jan, [place] [id number] [place] [address] 04033- 9702 Jan, [place] [id number] [place] [address] 74935- 1466 Jan, Post-traumatic stress disorder, unspecified F43.10 ; Obesity E66.9 ; Sleep apnea, obstructive G47.33 and 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 [place] [address] [place] [address] 96553- 7850 Jan, [place] [id number] [place], [place] [address] 286[address] Jan, Post-traumatic stress disorder, unspecified F43.10 and Major depressive disorder, recurrent, moderate F33.1 [place] [id number] [place] [address] 46961- 0378 Dec, [facility] [id number] [place] [address] 28763- 7805 Dec, Sleep apnea, obstructive G47.33 ; Obesity E66.9 ; Hyperlipidemia E78.5 ; Glaucoma H40.9 ; Chronic pain G89.29 ; HTN (hypertension ) I10 ; 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 ; Anxiety F41.9 and CAD (coronary artery disease) I25.10 [facility] [address] 85714- 6316 Nov, [facility] [address] 64157- 4936 Nov, [facility] [id number] [place] [address] 82353- 1579 Nov, [facility] [address] [place] [address] 59313- 8825 Nov, [facility] [id number] [place] [address] 01436- 0693 Nov, [facility] [address] [place] [id number] [place] [address] 35472- 6577 Nov, Encounter for immunization Z23 ; Sleep apnea, obstructive G47.33 ; Obesity E66.9 ; Hyperlipidemia E78.5 ; Glaucoma H40.9 ; Chronic pain G89.29 ; Anxiety F41.9 ; Chronic tension headaches G44.229 and HTN (hypertension ) I10 [facility] [id number] [place] [address] 88523- 5861 Nov, [facility] [address] 52788- 4119 Nov, [facility] [address] 26308- 2098 Nov, Dizziness R42 [facility] [id number] [place] [address] 06152- 3167 Nov, [place] [address] [address]- 1035 Oct, [facility] [id number] [place] [address] 45319- 9483 Oct, [facility] [id number] [place] [address] 72821- 7750 Oct, [facility] [id number] [place] [address] 98382- 5958 Oct, [facility] [id number] [place] [address] 39231- 4459 Oct, Dizziness 780.4 ; Essential hypertension 401.9 ; Obesity 278.00 ; Hyperlipidemia 272.4 ; Chronic pain 338.29 ; Glaucoma 365.9 and Anxiety 300.00 [facility] [id number] [place] [address] 90760- 4502 Oct, Essential hypertension 401.9 ; Hyperlipidemia 272.4 ; Glaucoma 365.9 ; Obesity 278.00 ; Chronic pain 338.29 and Allergy to insects V15.06 [facility] [address] [place] [address] 49958- 6440 Sep, [facility] [id number] [place] [address] 85961- 5105 Sep, [facility] [address] [address]- 8186 Sep, [facility] [id number] [place] [address] 07168- 2755 Sep, [facility] [address] [place] [address] 17148- 8835 Aug, Essential hypertension 401.9 ; Obesity 278.00 [...]
--- OUTSIDE RECORDS SUMMARY | 2018-02-04 13:52 | XMS REPORT ---
Author Author EDUIN CARDONA Organization [facility] Address [address] [place] [address] Care Team Providers Care Button Facing Machine Operator Name Role Phone EDUIN CARDONA Unavailable PROBLEMS Type Condition ICD9-CM Code [id number] Code Onset Dates Condition Status SNOMED Code Problem CAD (coronary artery disease) I25.10 Active 83021897 Problem Encounter for dental examination Z01.20 Active 077678839 Problem Shoulder pain, left M25.512 Active 48353521 Problem Post-traumatic stress disorder, unspecified F43.10 Active 46033903 Problem Hyperlipidemia E78.5 Active 75330379 Problem Primary insomnia F51.01 Active 8399093 Problem Obesity E66.9 Active 766932555 Problem Chronic pain G89.29 Active 94460617 Problem Post-traumatic stress disorder, chronic F43.12 Active 765720336 Problem Bilateral headaches R51 Active 805518413 Problem Arrhythmia as indication for cardiac pacemaker replacement I49.9 Active 01356902 Problem Environmental allergies Z91.09 Active 263911988 Problem 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 Active 971478094 Problem HTN (hypertension) I10 Active 67102318 Problem Glaucoma H40.9 Active 06886659 Problem Problems related to release from fpc Z65.2 Active 09596682 Problem Anxiety F41.9 Active 98284027 Problem Major depressive disorder, recurrent, moderate F33.1 Active 63262439 Problem Chronic tension headaches G44.229 Active 555530032 Problem 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 Active 46768878 Problem Sleep apnea, obstructive G47.33 Active 22081229 Problem Cough R05 Active 12145351 Problem Mitral valve prolapse I34.1 Active 971461625 ALLERGIES Unknown Allergies SOCIAL HISTORY No smoking Hx information available PLAN OF CARE VITAL SIGNS MEDICATIONS Unknown Medications RESULTS No Results PROCEDURES No Known procedures IMMUNIZATIONS No Known Immunizations
--- OUTSIDE RECORDS SUMMARY | 2018-02-04 13:52 | XMS REPORT ---
Author Author CJ EDGE [facility] Address [address] [place] [address] Care Team Providers Care Entry Level Buyer Name Role Phone CJ EDGE Unavailable PROBLEMS Type Condition ICD9-CM Code NCG75-HE Code Onset Dates Condition Status SNOMED Code Problem Glaucoma H40.9 Active 46312270 Problem Problems related to release from senior living Z65.2 Active 93503174 Problem Sleep apnea, obstructive G47.33 Active 29644586 Problem Encounter for dental examination Z01.20 Active 212539553 Problem Chronic pain G89.29 Active 15667287 Problem Bilateral headaches R51 Active 943886714 Problem Obesity E66.9 Active 011622226 Problem Post-traumatic stress disorder, chronic F43.12 Active 265016652 Problem Arrhythmia as indication for cardiac pacemaker replacement I49.9 Active 69031741 Problem Environmental allergies Z91.09 Active 337355495 Problem Morbid (severe) obesity due to excess calories E66.01 Active 705718410 Problem Other male erectile dysfunction N52.8 Active 383836640 Problem 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 Active 912213404 Problem HTN (hypertension) I10 Active 62861919 Problem Hyperlipidemia E78.5 Active 31962247 Problem Post-traumatic stress disorder, unspecified F43.10 Active 94725102 Problem Primary insomnia F51.01 Active 4481521 Problem Other abnormal findings in specimens from other organs, systems and tissues R89.8 Active 113828710 Problem Body mass index (BMI) of 40.0-44.9 in adult Z68.41 Active 613805404 Problem Cough R05 Active 56216346 Problem Major depressive disorder, recurrent, moderate F33.1 Active 78453743 Problem Chronic tension headaches G44.229 Active 172196433 Problem Anxiety F41.9 Active 50644022 Problem CAD (coronary artery disease) I25.10 Active 59397830 Problem Shoulder pain, left M25.512 Active 39450847 Problem 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 Active 94475022 Problem Mitral valve prolapse I34.1 Active 292712594 ALLERGIES No Information SOCIAL HISTORY Never Assessed PLAN OF CARE Activity Details Follow Up Every 2 weeks, 1/2 to 1 hour, as available. Reason: VITAL SIGNS MEDICATIONS Unknown Medications RESULTS No Results PROCEDURES Procedure Date Ordered Result Body Site Psychotherapy, patient &/family, 45 minutes, established patient July 09, 2016 IMMUNIZATIONS No Known Immunizations MEDICAL (GENERAL) [...]
--- OUTSIDE RECORDS SUMMARY | 2018-02-04 13:52 | XMS REPORT ---
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 Name Role Phone CJ EDGE Unavailable PROBLEMS Type Condition ICD9-CM Code TRO08-EK Code Onset Dates Condition Status SNOMED Code Problem Environmental allergies Z91.09 Active 133915784 Problem Primary insomnia F51.01 Active 5658048 Problem Arrhythmia as indication for cardiac pacemaker replacement I49.9 Active 76503155 Problem Chronic pain syndrome G89.4 Active 490529412 Problem Sleep apnea, obstructive G47.33 Active 67260644 Problem Migraine without aura and without status migrainosus, not intractable G43.009 Active 863446677 Problem Hyperlipidemia E78.5 Active 74915614 Problem Myocarditis, unspecified chronicity, 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 Active 25575094 Problem Other male erectile dysfunction N52.8 Active 479583943 Problem Morbid (severe) obesity due to excess calories E66.01 Active 638999211 Problem 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 Active 779551027 Problem Body mass index (BMI) of 40.0-44.9 in adult Z68.41 Active 919208598 Problem 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 Active 550632699 Problem Chronic tension headaches G44.229 Active 985507000 Problem Chronic pain G89.29 Active 27331315 Problem HTN (hypertension) I10 Active 44899464 Problem 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 Active 22265542 Problem Mitral valve prolapse I34.1 Active 545232593 Problem Anxiety F41.9 Active 82093446 Problem CAD (coronary artery disease) I25.10 Active 29896442 Problem Major depressive disorder, recurrent, moderate F33.1 Active 76493482 Problem Post-traumatic stress disorder, chronic F43.12 Active 535381401 ALLERGIES No Information ENCOUNTERS Encounter Location Date Diagnosis [facility] [address] [facility] [id number] [place] [address] 36158- 3581 Jul, [facility] [address] [address] 3038 Jul, [facility] [address] [place] [address] 25685- 7363 June, [facility] [address] [place] [address] 79614- 4316 June, [facility] [address] [id number] [place] [address] 621960- 5224 June, Left leg pain M79.605 [facility] [id number] [place] [address] 94272- 3062 May, [facility] [id number] [place] [address] 72454- 0021 May, [facility] [id number] [place] [address] 88782- 4532 May, [facility] [address] [place] [address] 38393- 9279 May, Left leg pain M79.605 [facility] [id number] [place] [address] 78918- 6500 May, Post-traumatic stress disorder, unspecified F43.10 ; Major depressive disorder, recurrent, moderate F33.1 and Problems related to release from residential Z65.2 [facility] [address] [place] [address] 35755- 5644 May, Chronic pain G89.29 ; Anxiety F41.9 and Chest pain, unspecified type R07.9 [facility] [address] [place] [address] 45795- 1429 Apr, [facility] [id number] [place] [address] 73046- 9612 Apr, Left leg pain M79.605 [facility] [address] [place] [address] 33820- 0418 27 Apr, 2017 Post-traumatic stress disorder, unspecified F43.10 ; Problems related to release from residential Z65.2 ; Anxiety F41.9 and BMI 40.0-44.9 , adult Z68.41 [place] [id number] [place] [address] 82464- 9671 22 Apr, 2017 [place] [address] 19632- 3659 Apr, Left leg pain M79.605 [place] [address] 02845- 0495 13 Apr, 2017 Post-traumatic stress disorder, unspecified F43.10 ; Major depressive disorder, recurrent, moderate F33.1 and Problems related to release from residential Z65.2 [place] [address] 57306- 6185 12 Apr, 2017 [place] [address] 82593- 6942 Apr, Chronic pain G89.29 ; 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 [id number] [place] [address] 04021 -9039 10 Apr, 2017 Sore throat J02.9 and BMI 40.0-44.9, adult Z68.41 [place] [address] [place] [address] 14916- 3284 02 Apr, 2017 Left leg pain M79.605 [facility] [address] [id number] Mar, Dental examination Z01.20 [place] [id number] [place] [address] 60209- 6371 Mar, [facility] [address] 24776 -4016 Mar, Cough R05 ; Viral gastroenteritis A08.4 and BMI 40.0-44.9, adult Z68.41 [place] [address] [place] [address] 13733- 5779 Mar, Left leg pain M79.605 [place] [address] [place] [address] 66058- 7453 Mar, Post-traumatic stress disorder, unspecified F43.10 ; Major depressive disorder, recurrent, moderate F33.1 and Problems related to release from residential Z65.2 [place] [address] 02425- 7812 Feb, Left leg pain M79.605 [place] [id number] [place] [address] 90241- 4099 Feb, [place] [address] 17796- 4743 Feb, BMI 40.0-44.9, adult Z68.41 ; Chronic pain syndrome G89.4 ; Migraine without aura and without status migrainosus, not intractable G43.009 ; Mitral valve prolapse I34.1 and 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 [place] [address] [place] [address] 60512- 6845 Feb, Post-traumatic stress disorder, chronic F43.12 ; Anxiety F41.9 ; Problems related to release from residential Z65.2 and BMI 40.0-44.9, adult Z68.41 [place] [address] [place] [address] 47979- 9133 Feb, Post-traumatic stress disorder, unspecified F43.10 ; Major depressive disorder, recurrent, moderate F33.1 and Problems related to release from residential Z65.2 [place] [address] [place] [address] 59141- 5969 Feb, Left leg pain M79.605 [place] [address] 54917- 7957 Jan, Post-traumatic stress disorder, unspecified F43.10 ; Major depressive disorder, recurrent, moderate F33.1 and Problems related to release from residential Z65.2 [facility] [address] [place] [address] 88230- 7361 Jan, [facility] [address] [address]- 9781 Jan, [facility] [id number] [place] [address] 40181- 7906 Jan, Anxiety F41.9 [place] [address] [place] [address] 35005- 6095 Jan, Left leg pain M79.605 [place] [address] [place] [address] 70000- 3029 Dec, Left leg pain M79.605 [facility] [id number] [place] [address] 80583- 8233 Dec, [facility] [address] [place] [address] 55360- 1616 15 Dec, 2016 Post-traumatic stress disorder, unspecified F43.10 ; Major depressive disorder, recurrent, moderate F33.1 and Problems related to release from residential Z65.2 [facility] [address] [address]- 2457 Nov, Chronic pain G89.29 and Anxiety F41.9 [facility] [address] [address]- 8610 24 Nov, 2016 Chronic pain G89.29 and Anxiety F41.9 [facility] [address] [place] [address] 65827- 9845 16 Nov, 2016 Post-traumatic stress disorder, unspecified F43.10 ; Major depressive disorder, recurrent, moderate F33.1 and Problems related to release from residential Z65.2 [facility] [address] [place] [address] 39116- 2840 09 Nov, 2016 Other abnormal findings in specimens from other organs, systems and tissues R89.8 ; Other male erectile dysfunction N52.8 ; Body mass index (BMI) of 40.0-44.9 in adult Z68.41 and Morbid (severe) obesity due to excess calories E66.01 [place] [address] [place] [address] 97376- 0218 02 Nov, 2016 Post-traumatic stress disorder, unspecified F43.10 ; Major depressive disorder, recurrent, moderate F33.1 and Problems related to release from residential Z65.2 [facility] [id number] [place] [address] [id number] 29 Oct, 2016 Dental examination Z01.20 [place] [address] 29556- 9150 Oct, [place] [address] 03771- 0477 Oct, Encounter for immunization Z23 [place] [address] [place] [address] 24969- 5721 Oct, Chronic pain G89.29 ; Anxiety F41.9 ; Arrhythmia as indication for cardiac pacemaker replacement I49.9 and Glaucoma H40.9 [place] [address] [place] [address] 48102- 0626 Oct, Anxiety F41.9 ; Post-traumatic stress disorder, chronic F43.12 and Problems related to release from residential Z65.2 [place] [address] [place] [address] 58775- 5078 Oct, Post-traumatic stress disorder, unspecified F43.10 ; Major depressive disorder, recurrent, moderate F33.1 and Problems related to release from residential Z65.2 [place] [address] [place] [address] 52867- 6449 Sep, Chronic pain G89.29 and Anxiety F41.9 [place] [address] 01855- 8867 Sep, Post-traumatic stress disorder, unspecified F43.10 ; Major depressive disorder, recurrent, moderate F33.1 and Problems related to release from residential Z65.2 [place] [address] [place] [address] 44181- 3038 Sep, Post-traumatic stress disorder, unspecified F43.10 ; Major depressive disorder, recurrent, moderate F33.1 and Problems related to release from residential Z65.2 [place] [address] [place] [address] 24461- 2068 Sep, Chronic pain G89.29 [place] [id number] [place] [address] 33267- 0126 Aug, Dental caries, unspecified K02.9 [place] [address] [place] [address] 24028- 1325 Aug, Sleep apnea, obstructive G47.33 ; Obesity E66.9 ; Chronic pain G89.29 ; HTN (hypertension) I10 ; Major depressive disorder, recurrent, moderate F33.1 ; Anxiety F41.9 ; Chronic tension headaches G44.229 ; Mitral valve prolapse I34.1 ; Arrhythmia as indication for cardiac pacemaker replacement I49.9 ; Dental caries, unspecified K02.9 ; Primary insomnia F51.01 and Hyperlipidemia E78.5 [place] [address] [address]- 3354 Aug, Post-traumatic stress disorder, unspecified F43.10 ; Major depressive disorder, recurrent, moderate F33.1 and Problems related to release from residential Z65.2 [place] [address] [address]- 7107 Aug, Dental examination Z01.20 [facility] [address] [place] [address] [id number] Aug, Dental examination Z01.20 [facility] [address] [address]- 5992 Aug, Post-traumatic stress disorder, unspecified F43.10 ; Major depressive disorder, recurrent, moderate F33.1 and Problems related to release from residential Z65.2 [place] [address] 62033- 4901 Aug, Chronic pain G89.29 and Primary insomnia F51.01 [place] [address] 93850- 6229 Jul, [place] [address] 50859- 6840 Jul, [place] [address] 86678- 7322 Jul, Nausea R11.0 [place] [address] 32627- 7027 Jul, Arrhythmia as indication for cardiac pacemaker replacement I49.9 [place] [address] 15677- 7085 Jul, Post-traumatic stress disorder, unspecified F43.10 ; Major depressive disorder, recurrent, moderate F33.1 and Problems related to release from residential Z65.2 [place] [address] [place] [address] 05481- 1321 Jul, Anxiety F41.9 [place] [address] [place] [address] 05254- 9956 Jul, Chronic pain G89.29 [place] [address] [place] [address] 86127- 9491 Jul, Sleep apnea, obstructive G47.33 ; Hyperlipidemia E78.5 ; Chronic pain G89.29 ; 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 ; Major depressive disorder, recurrent, moderate F33.1 ; Anxiety F41.9 ; Mitral valve prolapse I34.1 ; Arrhythmia as indication for cardiac pacemaker replacement I49.9 ; Primary insomnia F51.01 ; Bilateral headaches R51 and Environmental allergies Z91.09 [place] [address] 17517- 0294 Jul, Post-traumatic stress disorder, unspecified F43.10 ; Major depressive disorder, recurrent, moderate F33.1 and Problems related to release from residential Z65.2 [place] [address] [place] [address] 93568- 8547 June, Post-traumatic stress disorder, chronic F43.12 ; Anxiety F41.9 ; Problems related to release from residential Z65.2 ; Sleep apnea, obstructive G47.33 and Primary insomnia F51.01 [place] [address] [place] [address] 60534- 2498 June, [place] [address] [place] [address] 86929- 0082 June, [place] [address] [place] [address] 27783- 7448 June, [place] [address] [place] [address] 32358- 8109 June, Chronic pain G89.29 [place] [address] [place] [address] 41951- 4582 June, Chronic pain G89.29 [place] [address] [place] [address] 95554- 1251 June, Lipoma of left lower extremity D17.24 ; Open wound T14.8 and Swelling of left lower extremity M79.89 [place] [address] [place] [address] 14640- 6648 June, Post-traumatic stress disorder, unspecified F43.10 ; Major depressive disorder, recurrent, moderate F33.1 and Problems related to release from residential Z65.2 [place] [address] [place] [address] 38227- 7666 May, Lipoma of left lower extremity D17.24 ; Major depressive disorder, recurrent, moderate F33.1 ; Sleep apnea, obstructive G47.33 ; Hyperlipidemia E78.5 ; Obesity E66.9 ; HTN (hypertension) I10 ; Glaucoma H40.9 ; CAD (coronary artery disease) I25.10 ; Chronic tension headaches G44.229 ; Chronic pain G89.29 ; Anxiety F41.9 ; Nausea R11.0 and Primary insomnia F51.01 [place] [address] [place] [address] 38388- 7819 May, [address] 40622- 2152 11 May, 2016 Chronic pain G89.[address] 73706- 4512 May, [address] 559218- 0131 31 Apr, 2016 Post-traumatic stress disorder, unspecified F43.10 ; Major depressive disorder, recurrent, moderate F33.1 and Problems related to release from residential Z65.2 [place] [id number] [place] [address] 82822- 6065 28 Apr, 2016 Primary insomnia F51.01 ; Post-traumatic stress disorder, chronic F43.12 and Problems related to release from residential Z65.2 [place] [id number] [place] [address] 97368- 8157 17 Apr, 2016 Post-traumatic stress disorder, unspecified F43.10 ; Major depressive disorder, recurrent, moderate F33.1 and Problems related to release from residential Z65.2 [place] [id number] [place] [address] 54988- 6027 16 Apr, 2016 [place] [id number] [place] [address] 49034- 0328 Apr, Sleep apnea, obstructive G47.33 ; Chronic pain G89.29 ; HTN (hypertension) I10 ; Mitral valve prolapse I34.1 ; Shoulder pain, left M25.512 ; Arrhythmia as indication for cardiac pacemaker replacement I49.9 ; Glaucoma H40.9 ; Bilateral headaches R51 ; Environmental allergies Z91.09 ; Primary insomnia F51.01 and Nausea R11.0 [place] [id number] [address]- 8552 Apr, [place] [address] [place] [address] 24420- 7956 Apr, [place] [address] [place] [address] 32664- 3050 Apr, Post-traumatic stress disorder, unspecified F43.10 ; Major depressive disorder, recurrent, moderate F33.1 and Problems related to release from residential Z65.2 [place] [address] [place] [address] 62660- 6713 Apr, HTN (hypertension) I10 [place] [id number] [place] [address] 16831- 0920 Apr, HTN (hypertension) I10 [place] [address] [place] [address] 96784- 0745 Mar, Chronic pain G89.29 ; Primary insomnia F51.01 and Problems related to release from residential Z65.2 [place] [address] [place] [address] 46302- 7961 07 Mar, 2016 Post-traumatic stress disorder, unspecified F43.10 ; Major depressive disorder, recurrent, moderate F33.1 and Problems related to release from residential Z65.2 [place] [address] [place] [address] 17130- 8665 Feb, Post-traumatic stress disorder, unspecified F43.10 ; Major depressive disorder, recurrent, moderate F33.1 and Problems related to release from residential Z65.2 [place] [address] [address]- 3834 Feb, Chronic tension headaches G44.229 [place] [address] [place] [address] 90139- 2557 Feb, Sleep apnea, obstructive G47.33 ; Obesity [...] pacemaker replacement I49.9 and Primary insomnia F51.01 [facility] [address] 56257- 6793 17 Feb, 2016 Post-traumatic stress disorder, unspecified F43.10 and Chronic pain G89.29 [place] [address] 05513- 6026 Feb, [facility] [address] [id number] Feb, Dental caries K02.9 [place] [address] 26278- 7452 Feb, [place] [address] 86145- 3183 Feb, Post-traumatic stress disorder, unspecified F43.10 ; Major depressive disorder, recurrent, moderate F33.1 and Problems related to release from residential Z65.2 [place] [address] 59895- 2606 Jan, Sleep apnea, obstructive G47.33 and Chronic pain G89.29 [place] [address] 08788- 9588 Jan, [place] [address] [place] [address] 77082- 4598 14 Jan, 2016 Dental examination Z01.20 [place] [address] 70897- 9937 Jan, [place] [address] 01634- 3001 Jan, [place] [address] 02531- 7723 Dec, Post-traumatic stress disorder, unspecified F43.10 ; Major depressive disorder, recurrent, moderate F33.1 and Problems related to release from residential Z65.2 [place] [address] [place] [address]- 0317 Dec, Encounter for immunization Z23 ; Problems related to release from residential Z65.2 ; Sleep apnea, obstructive G47.33 and Post-traumatic stress disorder, chronic F43.12 [place] [address] [place] [address] 32602- 4669 Dec, Sleep apnea, obstructive G47.33 ; Hyperlipidemia E78.5 ; Chronic pain G89.29 ; Glaucoma H40.9 ; HTN (hypertension) I10 ; Post-traumatic stress disorder, unspecified F43.10 ; Anxiety F41.9 ; Chronic tension headaches G44.229 ; Mitral valve prolapse I34.1 and CAD (coronary artery disease) I25.10 [place] [address] [place] [address] 78474- 2111 Dec, Post-traumatic stress disorder, unspecified F43.10 ; Major depressive disorder, recurrent, moderate F33.1 and Problems related to release from residential Z65.2 [place] [address] [place] [address] 07023- 1555 Nov, Chronic pain G89.29 [place] [address] [place] [address] 32412- 3072 Nov, Post-traumatic stress disorder, unspecified F43.10 ; Major depressive disorder, recurrent, moderate F33.1 and Problems related to release from residential Z65.2 [place] [address] [place] [address] 91663- 8409 Oct, [place] [address] [place] [address] 85227- 8635 Oct, [place] [address] [place] [address] 50492- 7046 Oct, Post-traumatic stress disorder, unspecified F43.10 ; Major depressive disorder, recurrent, moderate F33.1 and Problems related to release from residential Z65.2 [facility] [address] [place] [address] 79201- 5091 08 Oct, 2015 [facility] [address] [place] [address] 44029- 7996 07 Oct, 2015 Environmental allergies Z91.09 ; Cough R05 and 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 [facility] [address] [place] [address] 11800- 8461 Sep, [facility] [address] [place] [address] 95924- 6885 Sep, Post-traumatic stress disorder, unspecified F43.10 ; Major depressive disorder, recurrent, moderate F33.1 and Problems related to release from residential Z65.2 [place] [address] [place] [address] 81214- 1906 16 Sep, 2015 Chronic pain G89.29 [facility] [address] [place] [address] 57803- 0857 Sep, Pain in left shoulder M25.512 ; Pain in right shoulder M25.511 and Other chronic pain G89.29 [facility] [address] [place] [address] 23795- 3813 Sep, [facility] [id number] [place] [address] 64138- 3145 Sep, [facility] [address] [place] [address] 00861- 7243 Sep, [facility] [id number] [place] [address] [id number] Aug, Dental examination Z01.20 [facility] [address] [place] [address] 30472- 9074 Aug, Post-traumatic stress disorder, unspecified F43.10 ; Open- angle glaucoma of both 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 and Problems related to release from residential Z65.2 [facility] [address] [place] [address] 88691- 0537 Aug, [facility] [id number] [place] [address] 17917- 6028 Aug, Sleep apnea, obstructive G47.33 ; Obesity E66.9 ; Hyperlipidemia E78.5 ; Bilateral headaches R51 ; HTN (hypertension) I10 ; Post- traumatic stress disorder, unspecified F43.10 ; Anxiety F41.9 ; Neuropathy G62.9 ; Glaucoma H40.9 and Chronic pain G89.29 [facility] [address] [place] [address] [id number] Aug, Encounter for dental examination Z01.20 [facility] [address] [place] [address] 49588- 8560 Aug, Post-traumatic stress disorder, unspecified F43.10 ; Major depressive disorder, recurrent, moderate F33.1 and Problems related to release from residential Z65.2 [facility] [address] [id number] [place] [address] 31611- 5557 Aug, [facility] [id number] [place] [address] 13505- 3786 Jul, [facility] [id number] [place] [address] 51756- 1164 Jul, Post-traumatic stress disorder, unspecified F43.10 and Major depressive disorder, recurrent, moderate F33.1 [facility] [id number] [place] [address] 75872- 7005 Jul, [facility] [id number] [place] [address] 64021- 9692 Jul, [facility] [id number] [place] [address] 72557- 8065 Jul, Chronic pain G89.29 [facility] [id number] [place] [address] 78108- 8778 June, Post-traumatic stress disorder, unspecified F43.10 and Major depressive disorder, recurrent, moderate F33.1 [facility] [id number] [place] [address] 33660- 6044 June, [facility] [id number] [place] [address] 88579- 0421 June, Chronic pain G89.29 [facility] [id number] [place] [address] 25942- 0650 June, Post-traumatic stress disorder, unspecified F43.10 and Major depressive disorder, recurrent, moderate F33.1 [facility] [id number] [place] [address] 15478- 9601 May, Post-traumatic stress disorder, unspecified F43.10 and Major depressive disorder, recurrent, moderate F33.1 [facility] [id number] [place] [address] 23230- 6370 May, [facility] [id number] [place] [address] 03617- 2518 May, [facility] [id number] [place] [address] 25289- 6323 May, [facility] [id number] [place] [address] 83539- 1123 Apr, [facility] [id number] [place] [address] 09210- 1710 Apr, Post-traumatic stress disorder, unspecified F43.10 and Sleep apnea, obstructive G47.33 [facility] [id number] [place] [address] 22248- 7557 Apr, [facility] [id number] [place] [address] 14854- 5693 Apr, Shoulder pain, left M25.512 [facility] [id number] [place] [address] 74249- 1431 Apr, Post-traumatic stress disorder, unspecified F43.10 and Major depressive disorder, recurrent, moderate F33.1 [facility] [id number] [place] [address] 77677- 7293 Apr, [facility] [id number] [place] [address] 50820- 6667 Apr, [facility] [id number] [place] [address] 64677- 2552 Apr, [facility] [id number] [place] [address] 44289- 7549 Apr, Left shoulder pain M25.512 [facility] [id number] [place] [address] 26022- 7089 Mar, [facility] [id number] [place] [address] 19255- 4190 Mar, [facility] [id number] [place] [address] 24163- 2797 Mar, [facility] [id number] [place] [address] 58792- 5571 Mar, Sleep apnea, obstructive G47.33 ; Obesity E66.9 ; Chronic pain G89.29 ; Hyperlipidemia E78.5 ; HTN (hypertension) I10 ; 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 ; Major depressive disorder, recurrent, moderate F33.1 and Anxiety F41.9 [facility] [id number] [place] [address] 69386- 7542 Mar, [facility] [id number] [place] [address] 91119- 0804 Mar, Post-traumatic stress disorder, unspecified F43.10 and Major depressive disorder, recurrent, moderate F33.1 [facility] [id number] [place] [address] 17638- 4835 Mar, [facility] [id number] [place] [address] 29515- 0501 04 Mar, 2015 HTN (hypertension) I10 ; 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 ; Obesity E66.9 ; Hyperlipidemia E78.5 ; Glaucoma H40.9 ; Chronic pain G89.29 and CAD (coronary artery disease) I25.10 [place] [id number] [place] [address] 60082- 8779 Feb, [address] 38001- 0657 Feb, Post-traumatic stress disorder, unspecified F43.10 ; Obesity E66.9 ; Sleep apnea, obstructive G47.33 and 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 [address] 63340- 0972 Feb, Post-traumatic stress disorder, unspecified F43.10 and Major depressive disorder, recurrent, moderate F33.[address] 81912- 4675 Feb, [address] 67429- 1046 Feb, [address] 11667- 5959 Feb, HTN (hypertension) I10 ; Post-traumatic stress disorder, unspecified F43.10 ; 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 ; Obesity E66.9 ; Hyperlipidemia E78.5 ; Chronic pain G89.29 ; Glaucoma H40.9 ; Mitral valve prolapse I34.1 and Bilateral headaches R51 [place] [id number] [place] [address] 09643- 5426 Feb, [address] 02292- 7872 Feb, Post-traumatic stress disorder, unspecified F43.10 and Major depressive disorder, recurrent, moderate F33.[address] 44230- 6368 Feb, [id number] [place] [address] 78953- 7072 Feb, [place] [id number] [place] [address] 44990- 0606 Jan, [place] [id number] [place] [address] 51773- 1608 Jan, [place] [id number] [place] [address] 43352- 0122 Jan, Obesity E66.9 ; HTN (hypertension) I10 ; 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 ; Major depressive disorder, recurrent, moderate F33.1 ; Glaucoma H40.9 ; Hyperlipidemia E78.5 ; Sleep apnea, obstructive G47.33 ; Chronic pain G89.29 ; Anxiety F41.9 ; Chronic tension headaches G44.229 and Cough R05 [place] [id number] [place] [address] 23335- 6486 Jan, [place] [id number] [place] [address] 62839- 4543 Jan, [place] [id number] [place] [address] 98566- 3209 Jan, Post-traumatic stress disorder, unspecified F43.10 ; Obesity E66.9 ; Sleep apnea, obstructive G47.33 and 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 [id number] [place] [address] 43961- 7906 Jan, [place] [id number] [place] [address] 80345- 2315 Jan, Post-traumatic stress disorder, unspecified F43.10 and Major depressive disorder, recurrent, moderate F33.1 [place] [id number] [place] [address] 93263- 8062 Dec, [place] [id number] [place] [address] 99920- 3468 Dec, Sleep apnea, obstructive G47.33 ; Obesity E66.9 ; Hyperlipidemia E78.5 ; Glaucoma H40.9 ; Chronic pain G89.29 ; HTN (hypertension ) I10 ; 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 ; Anxiety F41.9 and CAD (coronary artery disease) I25.10 [facility] [id number] [place] [address] 85660- 4683 Nov, [facility] [address] [place] [address] 13685- 8836 Nov, [facility] [address] [place] [address] 54020- 9064 Nov, [address] 11775- 3259 Nov, [address] 04127- 3597 Nov, [address] 61782- 5148 Nov, Encounter for immunization Z23 ; Sleep apnea, obstructive G47.33 ; Obesity E66.9 ; Hyperlipidemia E78.5 ; Glaucoma H40.9 ; Chronic pain G89.29 ; Anxiety F41.9 ; Chronic tension headaches G44.229 and HTN (hypertension ) I10 [address] [id number] [place] [address] 81715- 8155 Nov, [address] 94329- 3549 Nov, [address] 89798- 3137 Nov, Dizziness R42 [address] 22421- 7844 Nov, [facility] [address] [place] [address] 94815- 6160 Oct, [address] 90041- 6621 Oct, [facility] [id number] [place] [address] 11267- 2403 Oct, [facility] [address] 29173- 4752 Oct, [facility] [id number] [place] [address] 33013- 2526 Oct, Dizziness 780.4 ; Essential hypertension 401.9 ; Obesity 278.00 ; Hyperlipidemia 272.4 ; Chronic pain 338.29 ; Glaucoma 365.9 and Anxiety 300.00 [place] [address] 18435- 4226 Oct, Essential hypertension 401.9 ; Hyperlipidemia 272.4 ; Glaucoma 365.9 ; Obesity 278.00 ; Chronic pain 338.29 and Allergy to insects V15.06 [place] [id number] [place] [address] 94072- 9235 Sep, [place] [id number] [place] [address] 69831- 7680 Sep, [place] [id number] [place] [address] 79177- 8322 Sep, [place] [id number] [place] [address] 81115- 0397 Sep, [place] [id number] [place] [address] 08777- 8697 Aug, Essential hypertension 401.9 ; Obesity 278.00 [...] Psychotherapy, patient &/family, 45 minutes, established patient Nov 09, 2016 INSTRUCTIONS MEDICATIONS ADMINISTERED No Known Medications [...]
--- OUTSIDE RECORDS SUMMARY | 2018-02-04 13:53 | XMS REPORT ---
Author Author ALENA ÁLVAREZ [facility] Address [address] [place] [address] Care Team Providers Care Roll Table Operator Name Role Phone ALENA ÁLVAREZ Unavailable PROBLEMS Type Condition ICD9-CM Code CVB16-MC Code Onset Dates Condition Status SNOMED Code Problem Hyperlipidemia E78.5 Active 60666268 Problem Sleep apnea, obstructive G47.33 Active 72020201 Problem Primary insomnia F51.01 Active 8182779 Problem Chronic pain G89.29 Active 10436954 Problem Morbid (severe) obesity due to excess calories E66.01 Active 721442408 Problem Myocarditis, unspecified chronicity, 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 Active 95462662 Problem Other male erectile dysfunction N52.8 Active 176736248 Problem 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 Active 786830997 Problem Body mass index (BMI) of 40.0-44.9 in adult Z68.41 Active 495024136 Problem Supraventricular tachycardia I47.1 Active 1407218 Problem Insomnia disorder with non-sleep disorder mental comorbidity G47.00 Active 15945126 Problem Chronic tension headaches G44.229 Active 253805123 Problem HTN (hypertension) I10 Active 62621977 Problem 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 Active 500656562 Problem Chronic pain syndrome G89.4 Active 463436331 Problem Migraine without aura and without status migrainosus, not intractable G43.009 Active 711986412 Problem Sarcoidosis D86.9 Active 48554775 Problem Problems related to release from senior care Z65.2 Active 809168789247110 Problem 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 Active 09079173 Problem Mitral valve prolapse I34.1 Active 459140793 Problem Anxiety F41.9 Active 80198442 Problem Major depressive disorder, recurrent, moderate F33.1 Active 45504723 Problem Environmental allergies Z91.09 Active 551085891 Problem Arrhythmia as indication for cardiac pacemaker replacement I49.9 Active 02106356 Problem CAD (coronary artery disease) I25.10 Active 21593721 Problem Post-traumatic stress disorder, chronic F43.12 Active 877262761 ALLERGIES No Information ENCOUNTERS Encounter Location Date Diagnosis [facility] [address] [address] Jan, [facility] [address] 00[address]- [address]34 Jan, [facility] [address] 86[address]- 1054 Jan, Encounter for long-term (current) use of other medications Z79.899 [place] [address] [address] Jan, [facility] [address] 45[address]- 4908 Dec, Left leg pain M79.605 [place] [address] 47075- 3615 Dec, Encounter for long-term (current) use of other medications Z79.899 [facility] [address] 00209- 5849 Dec, [facility] [id number] [place] [address] 76436 -5142 Dec, Tooth pain K08.89 ; Active dental caries K02.9 and BMI 40.0 -44.9, adult Z68.41 [facility] [id number] [place] [address] 21676 -5713 15 Dec, 2017 Acute bronchitis J20.9 and BMI 40.0-44.9, adult Z68.41 [facility] [address] 8[address]71- 3812 Dec, [facility] [address] 76843- 3891 Dec, [facility] [address] 26540- 9596 Dec, [facility] [address] [place] [address] 03131- 0003 Dec, [facility] [id number] [place] [address] 31588- 1737 Nov, [facility] [id number] [place] [address] 87596- 9080 Nov, Left leg pain M79.605 [place] [address] [facility] [id number] [id number] Nov, [facility] [id number] [place] [address] 03511- 1839 Nov, Encounter for long-term (current) use of other medications Z79.899 [place] [address] [address] [id number] [place] [address] 73687- 1098 Nov, [facility] [id number] [place] [address] 62920- 3124 Nov, Left leg pain M79.605 [facility] [address] [place] [address] [id number] Oct, Dental examination Z01.20 [place] [address] [id number] [place] [address] 98557- 1534 Oct, Insomnia disorder with non-sleep disorder mental comorbidity G47.00 [facility] [id number] [place] [address] 14572- 2789 Oct, Post-traumatic stress disorder, chronic F43.12 ; Insomnia disorder with non-sleep disorder mental comorbidity G47.00 and BMI 40.0-44.9, adult Z68.41 [facility] [id number] [place] [address] 06642- 5371 Oct, [facility] [address] [place] [address] 28721 -9846 Oct, Insect bite (nonvenomous), left lower leg, initial encounter S80.862A ; Bitten or stung by nonvenomous insect and other nonvenomous arthropods, initial encounter W57.XXXA and BMI 40.0-44.9, adult Z68.41 [place] [address] 52914- 9998 06 Oct, 2017 Left leg pain M79.605 [place] [address] 38333- 4781 04 Oct, 2017 Post-traumatic stress disorder, unspecified F43.10 ; Major depressive disorder, recurrent, moderate F33.1 and Problems related to release from senior care Z65.2 [place] [address] 01681- 2210 2017 Arrhythmia as indication for cardiac pacemaker replacement I49.9 [place] [address] 07074- 5219 Sep, [place] [address] 14394- 2904 Sep, HTN (hypertension) I10 [place] [address] 20655- 5658 17 Sep, 2017 [place] [address] 99398- 0184 Sep, 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 ; Chronic pain G89.29 ; Supraventricular tachycardia I47.1 and Body mass index (BMI) of 40.0-44.9 in adult Z68.41 [place] [address] [place] [id number] [place] [address] 03747- 6984 Sep, [place] [address] 47934- 6287 Sep, Sarcoidosis D86.9 [place] [address] 04546- 1237 Sep, Sarcoidosis D86.9 [place] [address] 25337- 5558 Sep, [facility] [address] [address] 0[address] Sep, [facility] [address] [place] [address] 42256- 3299 Sep, [facility] [address] [place] [address] 21338- 1753 Sep, [facility] [id number] [place] [address] 72181- 7565 Sep, Left leg pain M79.605 [facility] [id number] [place] [address] 80605- 3898 Sep, HTN (hypertension) I10 [facility] [address] [place] [address] 58124- 7895 Sep, [facility] [id number] [place] [address] 77131- 5680 Sep, Post-traumatic stress disorder, unspecified F43.10 ; Major depressive disorder, recurrent, moderate F33.1 and Problems related to release from senior care Z65.2 [facility] [address] [place] [address] 64752- 5760 Sep, [facility] [id number] [address]- 8077 Aug, [facility] [address] [place] [address] 80776- 2425 Aug, Sarcoidosis D86.9 [facility] [address] [address]- 6468 Aug, Sarcoidosis D86.9 [facility] [address] [place] [address] 47028- 6024 Aug, HTN (hypertension) I10 [facility] [id number] [address]- 68[address] Aug, Post-traumatic stress disorder, unspecified F43.10 ; Major depressive disorder, recurrent, moderate F33.1 and Problems related to release from senior care Z65.2 [place] [id number] [place] [address] 85037- 3415 11 Aug, 2017 [place] [address] [id number] [place] [address] 12003- 4542 09 Aug, 2017 Left leg pain M79.605 [place] [address] 71069- 4020 26 Jul, 2017 Post-traumatic stress disorder, chronic F43.12 ; Anxiety F41.9 ; Problems related to release from senior care Z65.2 and BMI 40.0-44.9, adult Z68.41 [place] [address] [place] [id number] [place] [address] 39177- 5086 20 Jul, 2017 HTN (hypertension) I10 ; Body mass index (BMI) of 40.0-44.9 in adult Z68.41 ; Acute swimmer''s ear of both sides H60.333 and Chronic pain G89.29 [place] [address] [place] [id number] [place] [address] 87101- 9570 19 Jul, 2017 Glaucoma H40.9 [place] [address] [id number] [place] [address] 02671- 1142 14 Jul, 2017 [place] [address] [place] [id number] [place] [address] 57736- 3087 13 Jul, 2017 Sarcoidosis D86.9 [place] [address] [place] [id number] [place] [address] 93757- 2402 12 Jul, 2017 Left leg pain M79.605 [place] [address] [place] [id number] [place] [address] 16869- 1296 12 Jul, 2017 Sarcoidosis D86.9 [place] [address] [place] [id number] [place] [address] 80007- 6977 Jul, Post-traumatic stress disorder, unspecified F43.10 ; Major depressive disorder, recurrent, moderate F33.1 and Problems related to release from senior care Z65.2 [facility] [address] [address]- [address] June, [facility] [id number] [place] [address] 20723 -5980 June, Sore throat J02.9 and BMI 40.0-44.9, adult Z68.41 [facility] [id number] [place] [address] 80715- 5838 June, [facility] [id number] [place] [address] 81964- 1185 June, [facility] [id number] [place] [address] 04042- 5809 June, [facility] [id number] [place] [address] 52299- 9242 June, Left leg pain M79.605 [facility] [id number] [place] [address] 31735- 5737 June, Sarcoidosis D86.9 [facility] [id number] [place] [address] 76861- 4138 June, [facility] [id number] [address]- 3248 June, [facility] [address] [address]- 9599 June, Left leg pain M79.605 [facility] [address] [address]- 0794 May, [facility] [id number] [address]- 1170 May, [facility] [id number] [address]- 3774 May, [facility] [address] [address]- 0311 May, Left leg pain M79.605 [facility] [address] [place] [address] 38780- 6349 May, Post-traumatic stress disorder, unspecified F43.10 ; Major depressive disorder, recurrent, moderate F33.1 and Problems related to release from senior care Z65.2 [place] [address] [place] [id number] [place] [address] 82517- 7925 May, Chronic pain G89.29 ; Anxiety F41.9 ; Chest pain, unspecified type R07.9 and BMI 40.0-44.9, adult Z68.41 [place] [address] [place] [id number] [place] [address] 96323- 7210 30 Apr, 2017 [place] [address] [place] [id number] [place] [address] 52295- 0174 Apr, Left leg pain M79.605 [place] [address] 62485- 6894 27 Apr, 2017 Post-traumatic stress disorder, unspecified F43.10 ; Problems related to release from senior care Z65.2 ; Anxiety F41.9 and BMI 40.0-44.9 , adult Z68.41 [place] [address] [place] [id number] [place] [address] 42521- 8248 Apr, [place] [address] [place] [address] [id number] [place] [address] 62390- 7503 Apr, Left leg pain M79.605 [place] [address] [place] [id number] [place] [address] 09203- 2989 13 Apr, 2017 Post-traumatic stress disorder, unspecified F43.10 ; Major depressive disorder, recurrent, moderate F33.1 and Problems related to release from senior care Z65.2 [place] [id number] [place] [address] 59902- 7503 Apr, [place] [address] [address] [id number] [place] [address] 38133- 5489 Apr, Chronic pain G89.29 ; 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 ; Morbid (severe) obesity due to excess calories E66.01 ; Anxiety F41.9 and BMI 40.0-44.9, adult Z68.41 [facility] [id number] [place] [address] 43247 -2680 Apr, Sore throat J02.9 and BMI 40.0-44.9, adult Z68.41 [facility] [address] 99478- 1531 02 Apr, 2017 Left leg pain M79.605 [facility] [address] [id number] 28 Mar, 2017 Dental examination Z01.20 [place] [address] 89403- 4921 23 Mar, 2017 [facility] [address] 62216 -0062 Mar, Cough R05 ; Viral gastroenteritis A08.4 and BMI 40.0-44.9, adult Z68.41 [place] [address] 51267- 7625 Mar, Left leg pain M79.605 [facility] [id number] [place] [address] 68451- 5677 06 Mar, 2017 Post-traumatic stress disorder, unspecified F43.10 ; Major depressive disorder, recurrent, moderate F33.1 and Problems related to release from senior care Z65.2 [place] [address] [id number] [place] [address] 62298- 1437 Feb, Left leg pain M79.605 [place] [address] 60726- 3190 Feb, [place] [address] 49757- 0886 Feb, BMI 40.0-44.9, adult Z68.41 ; Chronic pain syndrome G89.4 ; Migraine without aura and without status migrainosus, not intractable G43.009 ; Mitral valve prolapse I34.1 and 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 [place] [address] 56698- 8907 Feb, Post-traumatic stress disorder, chronic F43.12 ; Anxiety F41.9 ; Problems related to release from senior care Z65.2 and BMI 40.0-44.9, adult Z68.41 [place] [address] 54684- 3207 Feb, Post-traumatic stress disorder, unspecified F43.10 ; Major depressive disorder, recurrent, moderate F33.1 and Problems related to release from senior care Z65.2 [place] [address] 91253- 3039 Feb, Left leg pain M79.605 [place] [address] 66680- 9883 Jan, Post-traumatic stress disorder, unspecified F43.10 ; Major depressive disorder, recurrent, moderate F33.1 and Problems related to release from senior care Z65.2 [place] [address] 58914- 3825 Jan, [place] [address] 27527- 9836 Jan, [place] [address] 63802- 2779 Jan, Anxiety F41.9 [place] [address] 75738- 5648 Jan, Left leg pain M79.605 [place] [address] 56429- 2927 Dec, Left leg pain M79.605 [place] [address] 91916- 1725 Dec, [place] [address] [address]- 9216 15 Dec, 2016 Post-traumatic stress disorder, unspecified F43.10 ; Major depressive disorder, recurrent, moderate F33.1 and Problems related to release from senior care Z65.2 [facility] [address] [place] [address] 84328- 8460 31 Nov, 2016 Chronic pain G89.29 and Anxiety F41.9 [place] [id number] [place] [address] 80252- 7562 24 Nov, 2016 Chronic pain G89.29 and Anxiety F41.9 [place] [address] [address] [id number] [place] [address] 45661- 1486 16 Nov, 2016 Post-traumatic stress disorder, unspecified F43.10 ; Major depressive disorder, recurrent, moderate F33.1 and Problems related to release from senior care Z65.2 [place] [address] [address] [id number] [place] [address] 26742- 9275 09 Nov, 2016 Other abnormal findings in specimens from other organs, systems and tissues R89.8 ; Other male erectile dysfunction N52.8 ; Body mass index (BMI) of 40.0-44.9 in adult Z68.41 and Morbid (severe) obesity due to excess calories E66.[address] [place] [address] 28112- 0411 02 Nov, 2016 Post-traumatic stress disorder, unspecified F43.10 ; Major depressive disorder, recurrent, moderate F33.1 and Problems related to release from senior care Z65.2 [facility] [address] [id number] [place] [address] [id number] Oct, Dental examination Z01.20 [place] [id number] [place] [address] 95796- 8474 Oct, [place] [address] [address] [id number] [place] [address] 29939- 2038 Oct, Encounter for immunization Z23 [place] [id number] [place] [address] 57691- 7913 Oct, Chronic pain G89.29 ; Anxiety F41.9 ; Arrhythmia as indication for cardiac pacemaker replacement I49.9 and Glaucoma H40.9 [place] [address] [place] [address] 16468- 0589 Oct, Anxiety F41.9 ; Post-traumatic stress disorder, chronic F43.12 and Problems related to release from senior care Z65.2 [place] [address] [id number] [place] [address] 61922- 8517 Oct, Post-traumatic stress disorder, unspecified F43.10 ; Major depressive disorder, recurrent, moderate F33.1 and Problems related to release from senior care Z65.2 [place] [address] [id number] [place] [address] 12952- 7698 Sep, Chronic pain G89.29 and Anxiety F41.9 [place] [address] [id number] [place] [address] 61087- 4157 Sep, Post-traumatic stress disorder, unspecified F43.10 ; Major depressive disorder, recurrent, moderate F33.1 and Problems related to release from senior care Z65.2 [place] [address] [id number] [place] [address] 94259- 9160 Sep, Post-traumatic stress disorder, unspecified F43.10 ; Major depressive disorder, recurrent, moderate F33.1 and Problems related to release from senior care Z65.2 [place] [address] [place] [address] 76025- 4045 Sep, Chronic pain G89.29 [place] [id number] [place] [address] 67516- 0001 Aug, Dental caries, unspecified K02.9 [place] [id number] [place] [address] 49530- 5241 Aug, Sleep apnea, obstructive G47.33 ; Obesity E66.9 ; Chronic pain G89.29 ; HTN (hypertension) I10 ; Major depressive disorder, recurrent, moderate F33.1 ; Anxiety F41.9 ; Chronic tension headaches G44.229 ; Mitral valve prolapse I34.1 ; Arrhythmia as indication for cardiac pacemaker replacement I49.9 ; Dental caries, unspecified K02.9 ; Primary insomnia F51.01 and Hyperlipidemia E78.5 [facility] [address] [address]- 6450 Aug, Post-traumatic stress disorder, unspecified F43.10 ; Major depressive disorder, recurrent, moderate F33.1 and Problems related to release from senior care Z65.2 [facility] [id number] [place] [address] 84254- 4721 Aug, Dental examination Z01.20 [facility] [id number] [place] [address] [id number] Aug, Dental examination Z01.20 [facility] [id number] [place] [address] 82627- 5735 Aug, Post-traumatic stress disorder, unspecified F43.10 ; Major depressive disorder, recurrent, moderate F33.1 and Problems related to release from senior care Z65.2 [facility] [id number] [place] [address] 20428- 0719 Aug, Chronic pain G89.29 and Primary insomnia F51.01 [facility] [id number] [place] [address] 05649- 3285 Jul, [facility] [id number] [place] [address] 07481- 6936 Jul, [facility] [id number] [place] [address] 75909- 8858 Jul, Nausea R11.0 [facility] [id number] [place] [address] 90241- 0382 Jul, Arrhythmia as indication for cardiac pacemaker replacement I49.9 [facility] [id number] [place] [address] 83124- 7496 Jul, Post-traumatic stress disorder, unspecified F43.10 ; Major depressive disorder, recurrent, moderate F33.1 and Problems related to release from senior care Z65.2 [place] [address], [place] [address]- 7469 09 Jul, 2016 Anxiety F41.9 [place] [address] [place] [address] 01108- 5683 08 Jul, 2016 Chronic pain G89.29 [place] [id number] [place] [address] 39507- 3687 Jul, Sleep apnea, obstructive G47.33 ; Hyperlipidemia E78.5 ; Chronic pain G89.29 ; 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 ; Major depressive disorder, recurrent, moderate F33.1 ; Anxiety F41.9 ; Mitral valve prolapse I34.1 ; Arrhythmia as indication for cardiac pacemaker replacement I49.9 ; Primary insomnia F51.01 ; Bilateral headaches R51 and Environmental allergies Z91.[address] [place] [address] 72233- 5040 Jul, Post-traumatic stress disorder, unspecified F43.10 ; Major depressive disorder, recurrent, moderate F33.1 and Problems related to release from senior care Z65.2 [address] [place] [address] 30752- 1933 June, Post-traumatic stress disorder, chronic F43.12 ; Anxiety F41.9 ; Problems related to release from senior care Z65.2 ; Sleep apnea, obstructive G47.33 and Primary insomnia F51.01 [place] [address] [address]- 7218 June, [place] [address], [place] [address]- 3850 June, [place] [id number] [place] [address] 31727- 1638 June, [place] [address] [place] [address] 19499- 7632 June, Chronic pain G89.29 [place] [id number] [place] [address] 29284- 1451 June, Chronic pain G89.29 [place] [address] 91667- 4887 June, Lipoma of left lower extremity D17.24 ; Open wound T14.8 and Swelling of left lower extremity M79.[address] 29085- 7969 June, Post-traumatic stress disorder, unspecified F43.10 ; Major depressive disorder, recurrent, moderate F33.1 and Problems related to release from senior care Z65.[address] [address] May, Lipoma of left lower extremity D17.24 ; Major depressive disorder, recurrent, moderate F33.1 ; Sleep apnea, obstructive G47.33 ; Hyperlipidemia E78.5 ; Obesity E66.9 ; HTN (hypertension) I10 ; Glaucoma H40.9 ; CAD (coronary artery disease) I25.10 ; Chronic tension headaches G44.229 ; Chronic pain G89.29 ; Anxiety F41.9 ; Nausea R11.0 and Primary insomnia F51.01 [place] [id number] [place] [phone] May, [place] [id number] [place] [address] May, Chronic pain G89.29 [place] [address] [address] [place] [id number] [place] [phone] May, [place] [address] [address] [place] [id number] [place] [address] Apr, Post-traumatic stress disorder, unspecified F43.10 ; Major depressive disorder, recurrent, moderate F33.1 and Problems related to release from senior care Z65.2 [place] [address] [address] [place] [id number] [place] [id number] Apr, Primary insomnia F51.01 ; Post-traumatic stress disorder, chronic F43.12 and Problems related to release from senior care Z65.2 [place] [address] [address] [place] [id number] [place] [address] 83218- 3808 17 Apr, 2016 Post-traumatic stress disorder, unspecified F43.10 ; Major depressive disorder, recurrent, moderate F33.1 and Problems related to release from senior care Z65.2 [facility] [facility] [id number] [place] [address] 61615- 9041 16 Apr, 2016 [place] [id number] [place] [address] 83878- 9358 16 Apr, 2016 Sleep apnea, obstructive G47.33 ; Chronic pain G89.29 ; HTN (hypertension) I10 ; Mitral valve prolapse I34.1 ; Shoulder pain, left M25.512 ; Arrhythmia as indication for cardiac pacemaker replacement I49.9 ; Glaucoma H40.9 ; Bilateral headaches R51 ; Environmental allergies Z91.09 ; Primary insomnia F51.01 and Nausea R11.0 [facility] [facility] [id number] [place] [address] 14885- 7523 15 Apr, 2016 [place] [id number] [place] [address] 72447- 5562 Apr, [facility] [facility] [id number] [place] [address] 18329- 6073 Apr, Post-traumatic stress disorder, unspecified F43.10 ; Major depressive disorder, recurrent, moderate F33.1 and Problems related to release from senior care Z65.2 [facility] [facility] [id number] [place] [address] 17588- 8207 Apr, HTN (hypertension) I10 [facility] [facility] [id number] [place] [address] 57167- 0151 Apr, HTN (hypertension) I10 [facility] [facility] [id number] [place] [address] 03211- 2176 14 Mar, 2016 Chronic pain G89.29 ; Primary insomnia F51.01 and Problems related to release from senior care Z65.2 [facility] [facility] [address] [address] 5[address] 07 Mar, 2016 Post-traumatic stress disorder, unspecified F43.10 ; Major depressive disorder, recurrent, moderate F33.1 and Problems related to release from senior care Z65.2 [facility] [facility] [address] [place] [address] 06633- 5486 Feb, Post-traumatic stress disorder, unspecified F43.10 ; Major depressive disorder, recurrent, moderate F33.1 and Problems related to release from senior care Z65.2 [facility] [facility] [id number] [place] [address] 04128- 3349 Feb, Chronic tension headaches G44.229 [place] [id number] [place] [address] 65614- 8771 Feb, Sleep apnea, obstructive G47.33 ; Obesity E66.9 ; Hyperlipidemia E78.5 ; Glaucoma H40.9 ; Chronic pain G89.29 ; HTN (hypertension ) I10 ; 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 ; 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 ; Chronic tension headaches G44.229 ; Cough R05 ; CAD (coronary artery disease) I25.10 ; Problems related to release from senior care Z65.2 ; Arrhythmia as indication for cardiac pacemaker replacement I49.9 and Primary insomnia F51.01 [facility] [id number] [address] 85[address] Feb, Post-traumatic stress disorder, unspecified F43.10 and Chronic pain G89.29 [facility] [id number] [address] 8[address] Feb, [facility] [id number] [place] [address] [id number] Feb, Dental caries K02.9 [place] [id number] [address] 2105 Feb, [facility] [address] [place] [address] 53478- 1321 Feb, Post-traumatic stress disorder, unspecified F43.10 ; Major depressive disorder, recurrent, moderate F33.1 and Problems related to release from senior care Z65.[address] [address]- 1996 Jan, Sleep apnea, obstructive G47.33 and Chronic pain G89.[address] 17217- 0449 Jan, [address] 17051- 5547 Jan, Dental examination Z01.[address] 94387- 9012 Jan, [address] 40312- 2349 Jan, [address] 55277- 0040 Dec, Post-traumatic stress disorder, unspecified F43.10 ; Major depressive disorder, recurrent, moderate F33.1 and Problems related to release from senior care Z65.[address] 34863- 5360 Dec, Encounter for immunization Z23 ; Problems related to release from senior care Z65.2 ; Sleep apnea, obstructive G47.33 and Post-traumatic stress disorder, chronic F43.12 [place] [id number] [place] [address] 68834- 9155 Dec, Sleep apnea, obstructive G47.33 ; Hyperlipidemia E78.5 ; Chronic pain G89.29 ; Glaucoma H40.9 ; HTN (hypertension) I10 ; Post-traumatic stress disorder, unspecified F43.10 ; Anxiety F41.9 ; Chronic tension headaches G44.229 ; Mitral valve prolapse I34.1 and CAD (coronary artery disease) I25.10 [place] [id number] [place] [address] 27378- 6488 15 Dec, 2015 Post-traumatic stress disorder, unspecified F43.10 ; Major depressive disorder, recurrent, moderate F33.1 and Problems related to release from senior care Z65.2 [facility] [id number] [place] [address] 47763- 9939 Nov, Chronic pain G89.29 [facility] [id number] [address]- 5975 Nov, Post-traumatic stress disorder, unspecified F43.10 ; Major depressive disorder, recurrent, moderate F33.1 and Problems related to release from senior care Z65.2 [facility] [id number] [address]- 9463 Oct, [facility] [id number] [place] [address] 362277- 9155 Oct, [facility] [id number] [place] [address] 94255- 4556 Oct, Post-traumatic stress disorder, unspecified F43.10 ; Major depressive disorder, recurrent, moderate F33.1 and Problems related to release from senior care Z65.2 [facility] [id number] [place] [address] 22286- 6839 08 Oct, 2015 [facility] [id number] [place] [address] 95040- 4939 07 Oct, 2015 Environmental allergies Z91.09 ; Cough R05 and 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 [facility] [address] [place] [address] 47861- 1710 Sep, [facility] [address] [place] [address] 24955- 7033 Sep, Post-traumatic stress disorder, unspecified F43.10 ; Major depressive disorder, recurrent, moderate F33.1 and Problems related to release from senior care Z65.2 [facility] [address], [place] [address]- 9950 Sep, Chronic pain G89.29 [facility] [id number] [place] [address] 83735- 8859 Sep, Pain in left shoulder M25.512 ; Pain in right shoulder M25.511 and Other chronic pain G89.29 [facility] [id number] [place] [address] 87773- 5404 Sep, [facility] [id number] [place] [address] 74036- 9769 Sep, [place] [id number] [place] [address] 67553- 1670 Sep, [facility] [id number] [place] [address] [id number] Aug, Dental examination Z01.20 [facility] [facility] [id number] [place] [address] 26294- 7449 Aug, Post-traumatic stress disorder, unspecified F43.10 ; Open- angle glaucoma of both 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 and Problems related to release from senior care Z65.2 [facility] [id number] [place] [address] 52196- 3054 Aug, [facility] [id number] [place] [address] 23584- 9414 Aug, Sleep apnea, obstructive G47.33 ; Obesity E66.9 ; Hyperlipidemia E78.5 ; Bilateral headaches R51 ; HTN (hypertension) I10 ; Post- traumatic stress disorder, unspecified F43.10 ; Anxiety F41.9 ; Neuropathy G62.9 ; Glaucoma H40.9 and Chronic pain G89.29 [facility] [id number] [place] [address] [id number] Aug, Encounter for dental examination Z01.20 [facility] [id number] [place] [address] 05965- 4134 Aug, Post-traumatic stress disorder, unspecified F43.10 ; Major depressive disorder, recurrent, moderate F33.1 and Problems related to release from senior care Z65.2 [place] [address] [place] [address]- 8122 Aug, [facility] [id number], [place] [address]- 2645 Jul, [facility] [id number] [place] [address] 16472- 5307 Jul, Post-traumatic stress disorder, unspecified F43.10 and Major depressive disorder, recurrent, moderate F33.1 [facility] [id number] [place] [address] 64025- 8509 Jul, [facility] [id number] [place] [address] 68336- 6873 Jul, [facility] [id number] [place] [address] 39529- 1082 Jul, Chronic pain G89.29 [facility] [id number] [place] [address] 12226- 3983 June, Post-traumatic stress disorder, unspecified F43.10 and Major depressive disorder, recurrent, moderate F33.1 [facility] [id number] [place] [address] 51399- 2710 June, [facility] [id number] [place] [address] 63527- 2461 June, Chronic pain G89.29 [facility] [id number] [place] [address] 11745- 8022 June, Post-traumatic stress disorder, unspecified F43.10 and Major depressive disorder, recurrent, moderate F33.1 [facility] [address], [place] [address]- 3328 May, Post-traumatic stress disorder, unspecified F43.10 and Major depressive disorder, recurrent, moderate F33.1 [facility] [id number], [place] [address]- 6503 May, [facility] [id number] [place] [address] 37204- 5560 May, [facility] [id number], [place] [address]- 5383 May, [facility] [id number] [place] [address] 919485- 8576 Apr, [facility] [id number] [place] [address] 09491- 4555 Apr, Post-traumatic stress disorder, unspecified F43.10 and Sleep apnea, obstructive G47.33 [facility] [id number] [place] [address] 18467- 8737 Apr, [facility] [id number] [place] [address] 31164- 5677 Apr, Shoulder pain, left M25.512 [facility] [id number] [place] [address] 97179- 4699 Apr, Post-traumatic stress disorder, unspecified F43.10 and Major depressive disorder, recurrent, moderate F33.1 [facility] [id number] [place] [address] 85282- 1195 Apr, [facility] [id number] [place] [address] 82650- 0229 Apr, [facility] [id number] [place] [address] 84316- 9849 Apr, [facility] [id number] [place] [address] 99007- 6925 Apr, Left shoulder pain M25.512 [facility] [id number] [address]- 0380 Mar, [facility] [id number] [place] [address] 169671- 0907 Mar, [facility] [address], [place] [address]- 5170 Mar, [facility] [address] [place] [address]- 9159 Mar, Sleep apnea, obstructive G47.33 ; Obesity E66.9 ; Chronic pain G89.29 ; Hyperlipidemia E78.5 ; HTN (hypertension) I10 ; 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 ; Major depressive disorder, recurrent, moderate F33.1 and Anxiety F41.9 [facility] [id number] [place] [address] 89461- 2600 Mar, [facility] [address] 77011- 5053 Mar, Post-traumatic stress disorder, unspecified F43.10 and Major depressive disorder, recurrent, moderate F33.1 [place] [address] 75001- 7333 Mar, [facility] [facility] [address] 74953- 5171 Mar, HTN (hypertension) I10 ; 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 ; Obesity E66.9 ; Hyperlipidemia E78.5 ; Glaucoma H40.9 ; Chronic pain G89.29 and CAD (coronary artery disease) I25.10 [facility] [id number] [place] [address] 54554- 5027 Feb, [facility] [facility] [id number] [place] [address] 95520- 9080 Feb, Post-traumatic stress disorder, unspecified F43.10 ; Obesity E66.9 ; Sleep apnea, obstructive G47.33 and 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 [facility] [id number] [place] [address] 40366- 0225 Feb, Post-traumatic stress disorder, unspecified F43.10 and Major depressive disorder, recurrent, moderate F33.1 [facility] [id number] [place] [address] 56558- 1334 Feb, [place] [id number] [place]- 2546 Feb, [facility] [id number] [place] [address] 92131- 2382 Feb, HTN (hypertension) I10 ; Post-traumatic stress disorder, unspecified F43.10 ; 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 ; Obesity E66.9 ; Hyperlipidemia E78.5 ; Chronic pain G89.29 ; Glaucoma H40.9 ; Mitral valve prolapse I34.1 and Bilateral headaches R51 [facility] [address] 38793- 5111 Feb, [place] [address] 09065- 6052 Feb, Post-traumatic stress disorder, unspecified F43.10 and Major depressive disorder, recurrent, moderate F33.1 [place] [id number] [place] [address] 76907- 7769 Feb, [place] [address] 46465- 1036 Feb, [place] [id number] [place] [address] 48516- 8965 Jan, [place] [address] 71000- 3406 Jan, [place] [id number] [place] [address] 92489- 4776 Jan, Obesity E66.9 ; HTN (hypertension) I10 ; 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 ; Major depressive disorder, recurrent, moderate F33.1 ; Glaucoma H40.9 ; Hyperlipidemia E78.5 ; Sleep apnea, obstructive G47.33 ; Chronic pain G89.29 ; Anxiety F41.9 ; Chronic tension headaches G44.229 and Cough R05 [place] [id number] [place] [address] 20617- 2554 16 Jan, 2015 [place] [address] 82139- 8709 Jan, [place] [id number] [place] [address] 36147- 2514 Jan, Post-traumatic stress disorder, unspecified F43.10 ; Obesity E66.9 ; Sleep apnea, obstructive G47.33 and 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 [place] [id number] [place] [address] 42254- 2659 Jan, [place] [address] [place] [address] 440171- 2249 Jan, Post-traumatic stress disorder, unspecified F43.10 and Major depressive disorder, recurrent, moderate F33.[address] 13476- 0271 Dec, [address] 11129- 0088 Dec, Sleep apnea, obstructive G47.33 ; Obesity E66.9 ; Hyperlipidemia E78.5 ; Glaucoma H40.9 ; Chronic pain G89.29 ; HTN (hypertension ) I10 ; 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 ; Anxiety F41.9 and CAD (coronary artery disease) I25.10 [place] [id number] [place] [address] 86510- 9617 Nov, [place] [id number] [place] [address] 30647- 2414 Nov, [place] [address] 02405- 3560 Nov, [place] [address] 77666- 3999 Nov, [place] [address] 52600- 5295 Nov, [place] [id number] [place] [address] 09117- 4853 Nov, Encounter for immunization Z23 ; Sleep apnea, obstructive G47.33 ; Obesity E66.9 ; Hyperlipidemia E78.5 ; Glaucoma H40.9 ; Chronic pain G89.29 ; Anxiety F41.9 ; Chronic tension headaches G44.229 and HTN (hypertension ) I10 [facility] [id number] [place] [address] 90165- 1892 Nov, [facility] [address] 97284- 1274 Nov, [facility] [address] 82006- 2816 Nov, Dizziness R42 [facility] [address] 54652- 7273 Nov, [facility] [address] 05072- 0433 Oct, [facility] [address] 18480- 5793 Oct, [facility] [address] 31062- 0814 Oct, [facility] [address] 14166- 1814 Oct, [facility] [id number] [place] [address] 88648- 2395 Oct, Dizziness 780.4 ; Essential hypertension 401.9 ; Obesity 278.00 ; Hyperlipidemia 272.4 ; Chronic pain 338.29 ; Glaucoma 365.9 and Anxiety 300.00 [facility] [address] 67724- 2167 Oct, Essential hypertension 401.9 ; Hyperlipidemia 272.4 ; Glaucoma 365.9 ; Obesity 278.00 ; Chronic pain 338.29 and Allergy to insects V15.06 [facility] [id number] [place] [address] 81080- 7133 Sep, [facility] [address] 25926- 4830 Sep, [facility] [address] [facility] [id number] [address]- 5010 Sep, [facility] [address] [facility] [id number] [address]- 0506 Sep, [facility] [address] [facility] [id number] [place] [address]- 7796 Aug, Essential hypertension 401.9 ; Obesity 278.00 ; Hyperlipidemia 272.4 ; Glaucoma 365.9 ; Lipoma 214.9 ; Mitral valve prolapse 424.0 ; Angina at rest 413.9 ; Lymphedema 457.1 and Chronic pain 338.29 IMMUNIZATIONS No Known Immunizations SOCIAL HISTORY Never Assessed REASON FOR VISIT Lab (walk-in) PLAN OF CARE Activity Details Pending Test DIFFERENTIAL, MANUAL Pending Test CMP Pending Test CBC w/MANUAL DIFF VITAL SIGNS MEDICATIONS Unknown Medications RESULTS No Results PROCEDURES Procedure Date Ordered Result Body Site LAB NOT BILLED BY [facility] Jan 21, 2018 VENIPUNCT, ROUTINE* Jan 21, 2018 INSTRUCTIONS MEDICATIONS ADMINISTERED No Known Medications MEDICAL [...]
--- OUTSIDE RECORDS SUMMARY | 2018-02-04 13:54 | XMS REPORT ---
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 Name Role Phone ALENA ÁLVAREZ Unavailable PROBLEMS Type Condition ICD9-CM Code CER42-IJ Code Onset Dates Condition Status SNOMED Code Problem Hyperlipidemia E78.5 Active 23335766 Problem Sleep apnea, obstructive G47.33 Active 17054869 Problem Primary insomnia F51.01 Active 2342312 Problem Chronic pain G89.29 Active 07493459 Problem Morbid (severe) obesity due to excess calories E66.01 Active 500828211 Problem Myocarditis, unspecified chronicity, 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 Active 12330095 Problem Other male erectile dysfunction N52.8 Active 863659250 Problem 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 Active 688266466 Problem Body mass index (BMI) of 40.0-44.9 in adult Z68.41 Active 653963271 Problem Supraventricular tachycardia I47.1 Active 9537696 Problem Insomnia disorder with non-sleep disorder mental comorbidity G47.00 Active 82286974 Problem Chronic tension headaches G44.229 Active 674608202 Problem HTN (hypertension) I10 Active 08190059 Problem 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 Active 983692749 Problem Chronic pain syndrome G89.4 Active 299345171 Problem Migraine without aura and without status migrainosus, not intractable G43.009 Active 195282163 Problem Sarcoidosis D86.9 Active 13239973 Problem Problems related to release from nursing home Z65.2 Active 553601798398096 Problem 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 Active 47733611 Problem Mitral valve prolapse I34.1 Active 602060231 Problem Anxiety F41.9 Active 91866559 Problem Major depressive disorder, recurrent, moderate F33.1 Active 70191350 Problem Environmental allergies Z91.09 Active 194616870 Problem Arrhythmia as indication for cardiac pacemaker replacement I49.9 Active 36774610 Problem CAD (coronary artery disease) I25.10 Active 76108406 Problem Post-traumatic stress disorder, chronic F43.12 Active 340046219 ALLERGIES No Information ENCOUNTERS Encounter Location Date Diagnosis [facility] [address] [address] Jan, [facility] [address] [address]- [address] Jan, [facility] [address] [address]- 3[address] Jan, [facility] [address] 36306- 8879 Dec, Left leg pain M79.605 [facility] [address] 31000- 9252 Dec, Encounter for long-term (current) use of other medications Z79.899 [facility] [address] 48241- 4463 Dec, [facility] [id number] [place] [address] 21382 -0751 Dec, Tooth pain K08.89 ; Active dental caries K02.9 and BMI 40.0 -44.9, adult Z68.41 [facility] [id number] [place] [address] 22353 -5865 Dec, Acute bronchitis J20.9 and BMI 40.0-44.9, adult Z68.41 [facility] [id number] [place] [address] 76247- 6773 Dec, [facility] [address] 79491- 3722 Dec, [facility] [id number] [place] [address] 80466- 0718 Dec, [facility] [id number] [place] [address] 51270- 2875 Dec, [facility] [address], [place] [address]- [address] Nov, [facility] [id number] [place] [address] 18496- 9858 Nov, Left leg pain M79.605 [place] [address] [facility] [id number] [id number] Nov, [facility] [id number] [place] [address] 06875- 6768 Nov, Encounter for long-term (current) use of other medications Z79.899 [facility] [id number] [place] [address] 95694- 0488 Nov, [facility] [id number] [place] [address] 29495- 6997 Nov, Left leg pain M79.605 [facility] [id number] [place] [address] [id number] Oct, Dental examination Z01.20 [facility] [id number] [place] [address] 81886- 3768 Oct, Insomnia disorder with non-sleep disorder mental comorbidity G47.00 [facility] [id number] [place] [address] 12833- 7861 Oct, Post-traumatic stress disorder, chronic F43.12 ; Insomnia disorder with non-sleep disorder mental comorbidity G47.00 and BMI 40.0-44.9, adult Z68.41 [facility] [id number] [place] [address] 56675- 2358 Oct, [facility] [id number] [place] [address] 35149 -4957 Oct, Insect bite (nonvenomous), left lower leg, initial encounter S80.862A ; Bitten or stung by nonvenomous insect and other nonvenomous arthropods, initial encounter W57.XXXA and BMI 40.0-44.9, adult Z68.41 [facility] [id number] [place] [address] 67717- 9472 06 Oct, 2017 Left leg pain M79.605 [facility] [facility] [address] 41648- 9240 04 Oct, 2017 Post-traumatic stress disorder, unspecified F43.10 ; Major depressive disorder, recurrent, moderate F33.1 and Problems related to release from nursing home Z65.2 [facility] [address] 57900- 6049 2017 Arrhythmia as indication for cardiac pacemaker replacement I49.9 [facility] [address] 19576- 0652 Sep, [facility] [facility] [address] 29775- 0203 Sep, HTN (hypertension) I10 [facility] [facility] [address] 23058- 2505 17 Sep, 2017 [place] [address] 32106- 7742 16 Sep, 2017 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 ; Chronic pain G89.29 ; Supraventricular tachycardia I47.1 and Body mass index (BMI) of 40.0-44.9 in adult Z68.41 [facility] [id number] [place] [address] 50736- 0976 15 Sep, 2017 [facility] [id number] [place] [address] 10758- 8141 Sep, Sarcoidosis D86.9 [facility] [id number] [place] [address] 44504- 4447 Sep, Sarcoidosis D86.9 [facility] [address] 29711- 4750 Sep, [facility] [address] 10550- 5832 Sep, [facility] [address], [place] [address]- 0712 Sep, [facility] [address], [place] [address]- 9734 Sep, [facility] [address], [place] [address]- 0166 Sep, Left leg pain M79.605 [facility] [id number] [place] [address] 83481- 1154 Sep, HTN (hypertension) I10 [facility] [address], [place] [address]- 2067 Sep, [facility] [address], [place] [address]- 1248 Sep, Post-traumatic stress disorder, unspecified F43.10 ; Major depressive disorder, recurrent, moderate F33.1 and Problems related to release from nursing home Z65.2 [facility] [address], [place] [address]- 7470 Sep, [facility] [address], [place] [address]- 0613 Aug, [facility] [address], [place] [address]- 4930 Aug, Sarcoidosis D86.9 [facility] [address], [place] [address]- 4958 Aug, Sarcoidosis D86.9 [facility] [id number] [address]- 6579 Aug, HTN (hypertension) I10 [facility] [address], [place] [address]- 8780 Aug, Post-traumatic stress disorder, unspecified F43.10 ; Major depressive disorder, recurrent, moderate F33.1 and Problems related to release from nursing home Z65.2 [facility] [id number] [place] [address] 79170- 8887 Aug, [facility] [id number] [place] [address] 75503- 1198 Aug, Left leg pain M79.605 [facility] [id number] [place] [address] 38435- 3913 Jul, Post-traumatic stress disorder, chronic F43.12 ; Anxiety F41.9 ; Problems related to release from nursing home Z65.2 and BMI 40.0-44.9, adult Z68.41 [facility] [id number] [place] [address] 42557- 3661 20 Jul, 2017 HTN (hypertension) I10 ; Body mass index (BMI) of 40.0-44.9 in adult Z68.41 ; Acute swimmer''s ear of both sides H60.333 and Chronic pain G89.29 [facility] [id number] [place] [address] 19694- 7969 19 Jul, 2017 Glaucoma H40.9 [facility] [id number] [place] [address] 01829- 7332 14 Jul, 2017 [facility] [id number] [place] [address] 12394- 1651 13 Jul, 2017 Sarcoidosis D86.9 [facility] [id number] [place] [address] 45611- 8668 Jul, Left leg pain M79.605 [facility] [id number] [place] [address] 79532- 2426 Jul, Sarcoidosis D86.9 [facility] [id number] [place] [address] 70860- 9475 Jul, Post-traumatic stress disorder, unspecified F43.10 ; Major depressive disorder, recurrent, moderate F33.1 and Problems related to release from nursing home Z65.2 [facility] [place] [id number] [place] [address] 51491- 0374 June, [facility] [id number] [address] June, Sore throat J02.9 and BMI 40.0-44.9, adult Z68.41 [facility] [address], [place] [address]- 2596 June, [facility] [id number] [place] [address]- 0066 June, [facility] [id number] [place] [address] 85958- 8168 June, [facility] [id number] [place] [address], [place] [address]- 8722 June, Left leg pain M79.605 [facility] [id number] [address]- 6622 June, Sarcoidosis D86.9 [facility] [id number] [place] [address] 98894- 0891 June, [facility] [id number] [address]- 3109 June, [facility] [id number] [address]- 1046 June, Left leg pain M79.605 [facility] [address], [place] [address]- 4596 May, [facility] [address], [place] [address]- 4565 May, [facility] [address], [place] [address]- 4114 May, [facility] [id number] [address]- 4569 May, Left leg pain M79.605 [facility] [address], [place] [address]- 3011 May, Post-traumatic stress disorder, unspecified F43.10 ; Major depressive disorder, recurrent, moderate F33.1 and Problems related to release from nursing home Z65.2 [facility] [id number] [place] [address] 21608- 4857 04 May, 2017 Chronic pain G89.29 ; Anxiety F41.9 ; Chest pain, unspecified type R07.9 and BMI 40.0-44.9, adult Z68.41 [place] [address] 63487- 2187 30 Apr, 2017 [place] [id number] [place] [address] 02315- 4639 29 Apr, 2017 Left leg pain M79.605 [place] [address] 30379- 4567 27 Apr, 2017 Post-traumatic stress disorder, unspecified F43.10 ; Problems related to release from nursing home Z65.2 ; Anxiety F41.9 and BMI 40.0-44.9 , adult Z68.41 [facility] [id number] [place] [address] 65601- 1535 Apr, [facility] [id number] [place] [address] 47688- 7549 Apr, Left leg pain M79.605 [facility] [id number] [place] [address] 14215- 2181 Apr, Post-traumatic stress disorder, unspecified F43.10 ; Major depressive disorder, recurrent, moderate F33.1 and Problems related to release from nursing home Z65.2 [facility] [id number] [place] [address] 70788- 5811 Apr, [place] [facility] [address] 73622- 8961 12 Apr, 2017 Chronic pain G89.29 ; 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 [address] 7[address] -8364 20 Mar, 2017 Cough R05 ; Viral gastroenteritis A08.4 and BMI 40.0-44.9, adult Z68.41 [place] [address] 07328- 0484 Mar, Left leg pain M79.605 [place] [address] 04515- 9220 06 Mar, 2017 Post-traumatic stress disorder, unspecified F43.10 ; Major depressive disorder, recurrent, moderate F33.1 and Problems related to release from nursing home Z65.2 [place] [address] 41751- 4708 Feb, Left leg pain M79.605 [place] [address] 40811- 8042 Feb, [place] [address] 87539- 1551 Feb, BMI 40.0-44.9, adult Z68.41 ; Chronic pain syndrome G89.4 ; Migraine without aura and without status migrainosus, not intractable G43.009 ; Mitral valve prolapse I34.1 and 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 [place] [address] 44701- 3215 Feb, Post-traumatic stress disorder, chronic F43.12 ; Anxiety F41.9 ; Problems related to release from nursing home Z65.2 and BMI 40.0-44.9, adult Z68.41 [facility] [id number] [place] [address] 90179- 9235 Feb, Post-traumatic stress disorder, unspecified F43.10 ; Major depressive disorder, recurrent, moderate F33.1 and Problems related to release from nursing home Z65.2 [facility] [id number] [place] [address] 47726- 4963 Feb, Left leg pain M79.605 [place] [id number] [place] [address] 47890- 1692 Jan, Post-traumatic stress disorder, unspecified F43.10 ; Major depressive disorder, recurrent, moderate F33.1 and Problems related to release from nursing home Z65.2 [facility] [id number] [place] [address] 59047- 8792 Jan, [facility] [id number] [place] [address] 41377- 8726 Jan, [facility] [id number] [place] [address] 69655- 2818 Jan, Anxiety F41.9 [facility] [id number] [place] [address] 06043- 8588 Jan, Left leg pain M79.605 [facility] [id number] [place] [address] 25626- 6494 Dec, Left leg pain M79.605 [facility] [id number] [place] [address] 05098- 0996 Dec, [facility] [id number] [place] [address] 51693- 8589 15 Dec, 2016 Post-traumatic stress disorder, unspecified F43.10 ; Major depressive disorder, recurrent, moderate F33.1 and Problems related to release from nursing home Z65.2 [place] [id number] [place] [address] 71398- 2802 31 Nov, 2016 Chronic pain G89.29 and Anxiety F41.9 [place] [id number] [place] [address] 44470- 9143 24 Nov, 2016 Chronic pain G89.29 and Anxiety F41.[address] 93600- 5125 16 Nov, 2016 Post-traumatic stress disorder, unspecified F43.10 ; Major depressive disorder, recurrent, moderate F33.1 and Problems related to release from nursing home Z65.[address] 39309- 3506 09 Nov, 2016 Other abnormal findings in specimens from other organs, systems and tissues R89.8 ; Other male erectile dysfunction N52.8 ; Body mass index (BMI) of 40.0-44.9 in adult Z68.41 and Morbid (severe) obesity due to excess calories E66.[address] 11471- 8885 02 Nov, 2016 Post-traumatic stress disorder, unspecified F43.10 ; Major depressive disorder, recurrent, moderate F33.1 and Problems related to release from nursing home Z65.2 [facility] [id number] [place] [address] [id number] Oct, Dental examination Z01.20 [facility] [id number] [place] [address] 49366- 1749 28 Oct, [address] 49177- 8405 Oct, Encounter for immunization Z23 [address] 83455- 3719 26 Oct, 2016 Chronic pain G89.29 ; Anxiety F41.9 ; Arrhythmia as indication for cardiac pacemaker replacement I49.9 and Glaucoma H40.[address] [id number] [address]- 6563 Oct, Anxiety F41.9 ; Post-traumatic stress disorder, chronic F43.12 and Problems related to release from nursing home Z65.2 [facility] [id number] [place] [address] 21778- 5946 07 Oct, 2016 Post-traumatic stress disorder, unspecified F43.10 ; Major depressive disorder, recurrent, moderate F33.1 and Problems related to release from nursing home Z65.2 [place] [id number] [place] [address] 17483- 3825 Sep, Chronic pain G89.29 and Anxiety F41.9 [place] [id number] [place] [address] 02003- 7711 Sep, Post-traumatic stress disorder, unspecified F43.10 ; Major depressive disorder, recurrent, moderate F33.1 and Problems related to release from nursing home Z65.2 [place] [id number] [place] [address] 94472- 9750 Sep, Post-traumatic stress disorder, unspecified F43.10 ; Major depressive disorder, recurrent, moderate F33.1 and Problems related to release from nursing home Z65.2 [place] [id number] [place] [address] 59931- 4313 Sep, Chronic pain G89.29 [facility] [place] [id number] [place] [address] 78735- 0379 Aug, Dental caries, unspecified K02.9 [facility] [place] [id number] [place] [address] 58856- 2283 Aug, Sleep apnea, obstructive G47.33 ; Obesity E66.9 ; Chronic pain G89.29 ; HTN (hypertension) I10 ; Major depressive disorder, recurrent, moderate F33.1 ; Anxiety F41.9 ; Chronic tension headaches G44.229 ; Mitral valve prolapse I34.1 ; Arrhythmia as indication for cardiac pacemaker replacement I49.9 ; Dental caries, unspecified K02.9 ; Primary insomnia F51.01 and Hyperlipidemia E78.5 [facility] [address] [place] [address] 89088- 9049 Aug, Post-traumatic stress disorder, unspecified F43.10 ; Major depressive disorder, recurrent, moderate F33.1 and Problems related to release from nursing home Z65.2 [facility] [id number] [place] [address] 79682- 3090 Aug, Dental examination Z01.20 [facility] [id number] [place] [address] [id number] Aug, Dental examination Z01.20 [facility] [address] 40784- 0312 06 Aug, 2016 Post-traumatic stress disorder, unspecified F43.10 ; Major depressive disorder, recurrent, moderate F33.1 and Problems related to release from nursing home Z65.2 [place] [address] 87712- 1871 Aug, Chronic pain G89.29 and Primary insomnia F51.01 [facility] [id number] [place] [address] 37342- 1662 Jul, [facility] [id number] [place] [address] 96567- 6963 Jul, [facility] [id number] [place] [address] 05713- 8495 Jul, Nausea R11.0 [facility] [facility] [id number] [place] [address] 68341- 2865 Jul, Arrhythmia as indication for cardiac pacemaker replacement I49.9 [facility] [address] 20298- 4559 Jul, Post-traumatic stress disorder, unspecified F43.10 ; Major depressive disorder, recurrent, moderate F33.1 and Problems related to release from nursing home Z65.2 [facility] [id number] [place] [address] 50921- 2671 Jul, Anxiety F41.9 [facility] [place] [id number] [place] [address] 79174- 7135 Jul, Chronic pain G89.29 [facility] [id number] [place] [address] 21663- 4938 Jul, Sleep apnea, obstructive G47.33 ; Hyperlipidemia E78.5 ; Chronic pain G89.29 ; 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 ; Major depressive disorder, recurrent, moderate F33.1 ; Anxiety F41.9 ; Mitral valve prolapse I34.1 ; Arrhythmia as indication for cardiac pacemaker replacement I49.9 ; Primary insomnia F51.01 ; Bilateral headaches R51 and Environmental allergies Z91.09 [place] [id number] [place] [address] 12576- 6566 Jul, Post-traumatic stress disorder, unspecified F43.10 ; Major depressive disorder, recurrent, moderate F33.1 and Problems related to release from nursing home Z65.2 [place] [id number] [place] [address] 03903- 9103 June, Post-traumatic stress disorder, chronic F43.12 ; Anxiety F41.9 ; Problems related to release from nursing home Z65.2 ; Sleep apnea, obstructive G47.33 and Primary insomnia F51.01 [facility] [id number] [place] [address] 30013- 5361 June, [place] [id number] [place] [address] 17926- 9761 June, [facility] [id number] [place] [address] 42824- 2148 June, [place] [id number] [place] [address] 39277- 4175 June, Chronic pain G89.29 [facility] [id number] [place] [address] 43276- 3340 June, Chronic pain G89.29 [facility] [address] 89949- 5549 June, Lipoma of left lower extremity D17.24 ; Open wound T14.8 and Swelling of left lower extremity M79.89 [facility] [id number] [place] [address] 05569- 5188 June, Post-traumatic stress disorder, unspecified F43.10 ; Major depressive disorder, recurrent, moderate F33.1 and Problems related to release from nursing home Z65.2 [facility] [id number] [place] [address] 42311- 3192 May, Lipoma of left lower extremity D17.24 ; Major depressive disorder, recurrent, moderate F33.1 ; Sleep apnea, obstructive G47.33 ; Hyperlipidemia E78.5 ; Obesity E66.9 ; HTN (hypertension) I10 ; Glaucoma H40.9 ; CAD (coronary artery disease) I25.10 ; Chronic tension headaches G44.229 ; Chronic pain G89.29 ; Anxiety F41.9 ; Nausea R11.0 and Primary insomnia F51.01 [facility] [id number] [place] [address] 82679- 3320 May, [facility] [address] 49090- 1244 May, Chronic pain G89.29 [place] [id number] [place] [address] 55277- 3149 May, [facility] [address] [place] [id number] [place] [phone] Apr, Post-traumatic stress disorder, unspecified F43.10 ; Major depressive disorder, recurrent, moderate F33.1 and Problems related to release from nursing home Z65.2 [place] [address] [place] [id number] [place] [address] [id number] 4053 Apr, Primary insomnia F51.01 ; Post-traumatic stress disorder, chronic F43.12 and Problems related to release from nursing home Z65.2 [place] [id number] [place] [address] 96948- 7221 Apr, Post-traumatic stress disorder, unspecified F43.10 ; Major depressive disorder, recurrent, moderate F33.1 and Problems related to release from nursing home Z65.2 [place] [address] [place] [id number] [place] [address] 56400- 2428 16 Apr, 2016 [place] [address] [place] [id number] [place] [address] 13829- 2936 16 Apr, 2016 Sleep apnea, obstructive G47.33 ; Chronic pain G89.29 ; HTN (hypertension) I10 ; Mitral valve prolapse I34.1 ; Shoulder pain, left M25.512 ; Arrhythmia as indication for cardiac pacemaker replacement I49.9 ; Glaucoma H40.9 ; Bilateral headaches R51 ; Environmental allergies Z91.09 ; Primary insomnia F51.01 and Nausea R11.0 [place] [address] [place] [id number] [place] [address] 02352- 6343 15 Apr, 2016 [place] [address] 16021- 2668 Apr, [place] [address] [place] [id number] [place] [address] 35503- 1503 Apr, Post-traumatic stress disorder, unspecified F43.10 ; Major depressive disorder, recurrent, moderate F33.1 and Problems related to release from nursing home Z65.2 [place] [address] [place] [id number] [place] [address] 92776- 8333 07 Apr, 2016 HTN (hypertension) I10 [place] [address] [place] [id number] [place] [address] 67106- 5504 Apr, HTN (hypertension) I10 [place] [address] [place] [id number] [place] [address] 26353- 0295 14 Mar, 2016 Chronic pain G89.29 ; Primary insomnia F51.01 and Problems related to release from nursing home Z65.2 [place] [id number] [place] [address] 42710- 8017 07 Mar, 2016 Post-traumatic stress disorder, unspecified F43.10 ; Major depressive disorder, recurrent, moderate F33.1 and Problems related to release from nursing home Z65.2 [place] [id number] [place] [address] 51838- 5558 Feb, Post-traumatic stress disorder, unspecified F43.10 ; Major depressive disorder, recurrent, moderate F33.1 and Problems related to release from nursing home Z65.2 [place] [address] [place] [id number] [place] [address] 53151- 3644 Feb, Chronic tension headaches G44.229 [place] [address] [place] [id number] [place] [address] 72653- 6808 17 Feb, 2016 Sleep apnea, obstructive G47.33 ; Obesity E66.9 ; Hyperlipidemia E78.5 ; Glaucoma H40.9 ; Chronic pain G89.29 ; HTN (hypertension ) I10 ; 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 ; 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 ; Chronic tension headaches G44.229 ; Cough R05 ; CAD (coronary artery disease) I25.10 ; Problems related to release from nursing home Z65.2 ; Arrhythmia as indication for cardiac pacemaker replacement I49.9 and Primary insomnia F51.01 [place] [address] [place] [id number] [place] [address] 52953- 1692 Feb, Post-traumatic stress disorder, unspecified F43.10 and Chronic pain G89.29 [place] [id number] [place] [address] 43053- 0079 Feb, [facility] [id number] [place] [address] [id number] Feb, Dental caries K02.9 [place] [id number] [place] [address] 91507- 3165 Feb, [place] [address] [place] [id number] [place] [address] 92117- 6940 Feb, Post-traumatic stress disorder, unspecified F43.10 ; Major depressive disorder, recurrent, moderate F33.1 and Problems related to release from nursing home Z65.2 [place] [address] [place] [id number] [place] [address] 41029- 3971 Jan, Sleep apnea, obstructive G47.33 and Chronic pain G89.29 [place] [address] [place] [id number] [place] [address] 62788- 0088 Jan, [place] [address] [place] [id number] [place] [address] 66994- 6911 14 Jan, 2016 Dental examination Z01.20 [place] [address] 85020- 4489 09 Jan, 2016 [place] [address] 73253- 0877 Jan, [place] [id number] [place] [address] 19150- 0749 29 Dec, 2015 Post-traumatic stress disorder, unspecified F43.10 ; Major depressive disorder, recurrent, moderate F33.1 and Problems related to release from nursing home Z65.2 [place] [id number] [place] [address] 04249- 3800 29 Dec, 2015 Encounter for immunization Z23 ; Problems related to release from nursing home Z65.2 ; Sleep apnea, obstructive G47.33 and Post-traumatic stress disorder, chronic F43.12 [place] [id number] [place] [address] 35054- 6687 18 Dec, 2015 Sleep apnea, obstructive G47.33 ; Hyperlipidemia E78.5 ; Chronic pain G89.29 ; Glaucoma H40.9 ; HTN (hypertension) I10 ; Post-traumatic stress disorder, unspecified F43.10 ; Anxiety F41.9 ; Chronic tension headaches G44.229 ; Mitral valve prolapse I34.1 and CAD (coronary artery disease) I25.10 [place] [id number] [place] [address] 03224- 7996 15 Dec, 2015 Post-traumatic stress disorder, unspecified F43.10 ; Major depressive disorder, recurrent, moderate F33.1 and Problems related to release from nursing home Z65.[address] [place] [id number] [place] [id number]- 2546 Nov, Chronic pain G89.29 [place] [id number] [place] [address] 28397- 3476 Nov, Post-traumatic stress disorder, unspecified F43.10 ; Major depressive disorder, recurrent, moderate F33.1 and Problems related to release from nursing home Z65.2 [place] [address] [place] [id number] [place] [address] 02656- 0147 Oct, [place] [address] [place] [id number] [place] [address] 48809- 5357 Oct, [place] [address] [place] [id number] [place] [address] 04721- 8245 Oct, Post-traumatic stress disorder, unspecified F43.10 ; Major depressive disorder, recurrent, moderate F33.1 and Problems related to release from nursing home Z65.2 [place] [address] [place] [id number] [place] [address] 30293- 2527 08 Oct, 2015 [place] [address] [place] [id number] [place] [address] 82526- 3267 07 Oct, 2015 Environmental allergies Z91.09 ; Cough R05 and 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 [place] [id number] [place] [address] 08367- 6597 Sep, [place] [address] [place] [id number] [place] [address] 55126- 7217 Sep, Post-traumatic stress disorder, unspecified F43.10 ; Major depressive disorder, recurrent, moderate F33.1 and Problems related to release from nursing home Z65.2 [place] [id number] [place] [address] 69993- 3011 Sep, Chronic pain G89.29 [place] [id number] [place] [address] 07945- 6648 Sep, Pain in left shoulder M25.512 ; Pain in right shoulder M25.511 and Other chronic pain G89.29 [place] [address] [address]26 Sep, [facility] [id number] [place] [address] 271740- 7132 Sep, [facility] [address] 5706 Sep, [facility] [address] [place] [id number] [place] [address] [id number] Aug, Dental examination Z01.20 [facility] [id number] [place] [address] 12915- 9305 Aug, Post-traumatic stress disorder, unspecified F43.10 ; Open- angle glaucoma of both 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 and Problems related to release from nursing home Z65.2 [place] [address] [place] [id number] [place] [address] 17215- 6313 Aug, [place] [address] [place] [id number] [place] [address] 16813- 4417 Aug, Sleep apnea, obstructive G47.33 ; Obesity E66.9 ; Hyperlipidemia E78.5 ; Bilateral headaches R51 ; HTN (hypertension) I10 ; Post- traumatic stress disorder, unspecified F43.10 ; Anxiety F41.9 ; Neuropathy G62.9 ; Glaucoma H40.9 and Chronic pain G89.29 [facility] [address] [place] [id number] [id number] Aug, Encounter for dental examination Z01.20 [facility] [address] [address]- 7597 Aug, Post-traumatic stress disorder, unspecified F43.10 ; Major depressive disorder, recurrent, moderate F33.1 and Problems related to release from nursing home Z65.2 [facility] [address] [address]- 5195 Aug, [place] [id number] [place] [address] 31230- 7032 Jul, [facility] [address], [place] [address]- 2067 Jul, Post-traumatic stress disorder, unspecified F43.10 and Major depressive disorder, recurrent, moderate F33.1 [facility] [address], [place] [address]- 3992 Jul, [facility] [address], [place] [address]- 9949 Jul, [facility] [address], [place] [address]- 0971 Jul, Chronic pain G89.29 [facility] [id number] [place] [address] 29059- 3826 June, Post-traumatic stress disorder, unspecified F43.10 and Major depressive disorder, recurrent, moderate F33.1 [facility] [address], [place] [address]- 6794 June, [facility] [address], [place] [address]- 5458 June, Chronic pain G89.29 [facility] [address], [place] [address]- 0171 June, Post-traumatic stress disorder, unspecified F43.10 and Major depressive disorder, recurrent, moderate F33.1 [facility] [address], [place] [address]- 1441 May, Post-traumatic stress disorder, unspecified F43.10 and Major depressive disorder, recurrent, moderate F33.1 [facility] [address], [place] [address]- 9449 May, [facility] [address], [place] [address]- 1551 May, [facility] [address], [place] [address]- 0364 May, [facility] [address] [place] [id number] [place] [address] 38429- 2485 Apr, [facility] [address] 36363- 9697 Apr, Post-traumatic stress disorder, unspecified F43.10 and Sleep apnea, obstructive G47.33 [facility] [address] [place] [id number] [place] [address] 36861- 0424 Apr, [facility] [address] 07728- 3508 Apr, Shoulder pain, left M25.512 [place] [address] 68419- 3500 Apr, Post-traumatic stress disorder, unspecified F43.10 and Major depressive disorder, recurrent, moderate F33.1 [place] [address] 17474- 9855 Apr, [facility] [address] [place] [id number] [place] [address] 75340- 6227 Apr, [place] [address] [place] [id number] [place] [address] 10686- 8075 Apr, [facility] [address] [place] [id number] [place] [address] 31483- 5699 Apr, Left shoulder pain M25.512 [facility] [address] [place] [id number] [place] [address] 69684- 5041 Mar, [facility] [address] [place] [id number] [place] [address] 99956- 7400 Mar, [facility] [address] [place] [id number] [place] [address] 54741- 1901 18 Mar, 2015 [facility] [address] [place] [id number] [place] [address] 56887- 9849 12 Mar, 2015 Sleep apnea, obstructive G47.33 ; Obesity E66.9 ; Chronic pain G89.29 ; Hyperlipidemia E78.5 ; HTN (hypertension) I10 ; 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 ; Major depressive disorder, recurrent, moderate F33.1 and Anxiety F41.9 [place] [address] [place] [id number] [place] [address] 16456- 1366 Mar, [place] [address] [place] [id number] [place] [address] 47269- 5162 Mar, Post-traumatic stress disorder, unspecified F43.10 and Major depressive disorder, recurrent, moderate F33.1 [place] [address] [place] [id number] [place] [address] 93818- 3475 08 Mar, 2015 [place] [address] 81627- 9794 04 Mar, 2015 HTN (hypertension) I10 ; 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 ; Obesity E66.9 ; Hyperlipidemia E78.5 ; Glaucoma H40.9 ; Chronic pain G89.29 and CAD (coronary artery disease) I25.10 [place] [address] [place] [id number] [place] [address] 48089- 2824 Feb, [place] [address] [place] [id number] [place] [address] 79338- 8522 Feb, Post-traumatic stress disorder, unspecified F43.10 ; Obesity E66.9 ; Sleep apnea, obstructive G47.33 and 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 [place] [address] [place] [id number] [place] [address] 11993- 8172 Feb, Post-traumatic stress disorder, unspecified F43.10 and Major depressive disorder, recurrent, moderate F33.1 [place] [address] [place] [id number] [place] [address] 95259- 5326 Feb, [place] [address] [place] [id number] [place] [address] 92285- 6958 Feb, [place] [address] [place] [id number] [place] [address] 17354- 9026 Feb, HTN (hypertension) I10 ; Post-traumatic stress disorder, unspecified F43.10 ; 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 ; Obesity E66.9 ; Hyperlipidemia E78.5 ; Chronic pain G89.29 ; Glaucoma H40.9 ; Mitral valve prolapse I34.1 and Bilateral headaches R51 [place] [address] [place] [id number] [place] [address] 95571- 2226 Feb, [place] [address] 431029- 5956 Feb, Post-traumatic stress disorder, unspecified F43.10 and Major depressive disorder, recurrent, moderate F33.[address] 744705- 7933 Feb, [place] [address] 95040- 1310 Feb, [address] 94927- 6519 Jan, [place] [address] [place] [id number] [place] [address] 69487- 5540 Jan, [address] 51669- 1413 Jan, Obesity E66.9 ; HTN (hypertension) I10 ; 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 ; Major depressive disorder, recurrent, moderate F33.1 ; Glaucoma H40.9 ; Hyperlipidemia E78.5 ; Sleep apnea, obstructive G47.33 ; Chronic pain G89.29 ; Anxiety F41.9 ; Chronic tension headaches G44.229 and Cough R05 [place] [address] [place] [id number] [place] [address] 17478- 6504 Jan, [address] 83846- 9796 Jan, [place] [id number] [place] [address] 50556- 6884 Jan, Post-traumatic stress disorder, unspecified F43.10 ; Obesity E66.9 ; Sleep apnea, obstructive G47.33 and 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 [place] [id number]- 8976 Jan, [place] [id number]- 2502 Jan, Post-traumatic stress disorder, unspecified F43.10 and Major depressive disorder, recurrent, moderate F33.[address] 30087- 8208 Dec, [place] 155107- 1058 Dec, Sleep apnea, obstructive G47.33 ; Obesity E66.9 ; Hyperlipidemia E78.5 ; Glaucoma H40.9 ; Chronic pain G89.29 ; HTN (hypertension ) I10 ; 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 ; Anxiety F41.9 and CAD (coronary artery disease) I25.[address] 82542- 6749 Nov, [address] 98641- 9268 Nov, [address] 27265- 1983 Nov, [address] 56440- 0670 Nov, [address] 72088- 2395 Nov, [place] [id number]- 9185 Nov, Encounter for immunization Z23 ; Sleep apnea, obstructive G47.33 ; Obesity E66.9 ; Hyperlipidemia E78.5 ; Glaucoma H40.9 ; Chronic pain G89.29 ; Anxiety F41.9 ; Chronic tension headaches G44.229 and HTN (hypertension ) I10 [place] [address], [place] [address]- 8996 19 Nov, 2014 [facility] [id number] [place] [address] 99015- 9541 14 Nov, 2014 [facility] [address], [place] [address]- 2532 06 Nov, 2014 Dizziness R42 [facility] [address] [id number] [place] [address] 55229- 0276 Nov, [facility] [address] [place] [address] [id number] [place] [address] 96955- 0034 29 Oct, 2014 [facility] [address] [place] [address] [id number] [place] [address] 52695- 1660 28 Oct, 2014 [facility] [address] [place] [address] [id number] [place] [address] 12821- 0730 Oct, [facility] [address] [place] [address] [id number] [place] [address] 04909- 7817 Oct, [facility] [address], [place] [address]- 9767 17 Oct, 2014 Dizziness 780.4 ; Essential hypertension 401.9 ; Obesity 278.00 ; Hyperlipidemia 272.4 ; Chronic pain 338.29 ; Glaucoma 365.9 and Anxiety 300.00 [facility] [address], [place] [address]- 3882 Oct, Essential hypertension 401.9 ; Hyperlipidemia 272.4 ; Glaucoma 365.9 ; Obesity 278.00 ; Chronic pain 338.29 and Allergy to insects V15.06 [facility] [address], [place] [address]- 6955 Sep, [facility] [address] [id number] [place] [address] 06685- 2298 Sep, [facility] [address], [place] [address]- 1959 Sep, [facility] [address] [id number] [place] [address] [place] [address]- 9916 Sep, [facility] [address] [facility] [id number] [address]- 5218 Aug, Essential hypertension 401.9 ; Obesity 278.00 ; Hyperlipidemia 272.4 ; Glaucoma 365.9 ; Lipoma 214.9 ; Mitral valve prolapse 424.0 ; Angina at rest 413.9 ; Lymphedema 457.1 and Chronic pain 338.29 IMMUNIZATIONS No Known Immunizations SOCIAL HISTORY Never Assessed REASON FOR VISIT Narcotic concern PLAN OF CARE VITAL SIGNS MEDICATIONS Unknown [...]
--- OUTSIDE RECORDS SUMMARY | 2018-02-04 13:55 | XMS REPORT ---
Author Author ALENA ÁLVAREZ [facility] Address [address] [place] [address] Care Team Providers Care General Practice Name Role Phone ALENA ÁLVAREZ Unavailable PROBLEMS Type Condition ICD9-CM Code [id number] Code Onset Dates Condition Status SNOMED Code Problem Hyperlipidemia E78.5 Active 56877257 Problem Sleep apnea, obstructive G47.33 Active 85373759 Problem Primary insomnia F51.01 Active 2260345 Problem Chronic pain G89.29 Active 23469288 Problem Morbid (severe) obesity due to excess calories E66.01 Active 819583517 Problem Myocarditis, unspecified chronicity, 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 Active 11468961 Problem Other male erectile dysfunction N52.8 Active 428005908 Problem 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 Active 183083320 Problem Body mass index (BMI) of 40.0-44.9 in adult Z68.41 Active 658438297 Problem Supraventricular tachycardia I47.1 Active 2604289 Problem Insomnia disorder with non-sleep disorder mental comorbidity G47.00 Active 69907757 Problem Chronic tension headaches G44.229 Active 221070784 Problem HTN (hypertension) I10 Active 44920340 Problem 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 Active 818904783 Problem Chronic pain syndrome G89.4 Active 272825640 Problem Migraine without aura and without status migrainosus, not intractable G43.009 Active 433709489 Problem Sarcoidosis D86.9 Active 94323686 Problem Problems related to release from jail Z65.2 Active 359548971438036 Problem 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 Active 23614345 Problem Mitral valve prolapse I34.1 Active 423285392 Problem Anxiety F41.9 Active 50700734 Problem Major depressive disorder, recurrent, moderate F33.1 Active 31953340 Problem Environmental allergies Z91.09 Active 746661697 Problem Arrhythmia as indication for cardiac pacemaker replacement I49.9 Active 57746315 Problem CAD (coronary artery disease) I25.10 Active 10470842 Problem Post-traumatic stress disorder, chronic F43.12 Active 242611596 ALLERGIES Substance Reaction Event Type Date Status Elavil Unknown Drug Allergy Sep, Active Xalatan upper lid irritation Drug Allergy Sep, Active Penicillin G Potassium rash Drug Allergy Sep, Active Lisinopril cough Drug Allergy Sep, Active Cymbalta effects like aspirin Drug Allergy Sep, Active Aspirin nausea and vomiting Drug Allergy Sep, Active bandaides blisters Non Drug Allergy Sep, Active Wasp venom anaphylaxis Non Drug Allergy Sep, Active ENCOUNTERS Encounter Location Date Diagnosis [place] [address] [address] Jan, [place] [address] 8[address]84- 6376 Jan, [place] [address] 79244- 3069 Dec, Left leg pain M79.605 [place] [address] 48979- 0375 Dec, Encounter for long-term (current) use of other medications Z79.899 [place] [address] 94780- 7211 Dec, [facility] [address] [address] Dec, Tooth pain K08.89 ; Active dental caries K02.9 and BMI 40.0 -44.9, adult Z68.41 [facility] [address] [address] 15 Dec, 2017 Acute bronchitis J20.9 and BMI 40.0-44.9, adult Z68.41 [facility] [address] 81842- 9336 15 Dec, 2017 [place] [address] 04[address]- [address] Dec, [place] [address], [place] [address] Dec, [facility] [address] [place] [id number] [place] [address] 85021- 7624 Dec, [facility] [address] [place] [id number] [place] [address] 47050- 2746 Nov, [facility] [address] [address]- 9783 Nov, Left leg pain M79.605 [place] [id number] [id number] Nov, [place] [address] [place] [id number] [place] [address] 34255- 8392 Nov, Encounter for long-term (current) use of other medications Z79.899 [place] [id number] [place] [address] 46627- 1945 Nov, [facility] [address] [place] [id number] [place] [address] 71139- 1233 Nov, Left leg pain M79.605 [facility] [address] [place] [id number] [place] [address] [id number] Oct, Dental examination Z01.20 [place] [address] [place] [id number] [place] [address] 91068- 4782 Oct, Insomnia disorder with non-sleep disorder mental comorbidity G47.00 [facility] [address] [place] [id number] [place] [address] 20302- 7115 Oct, Post-traumatic stress disorder, chronic F43.12 ; Insomnia disorder with non-sleep disorder mental comorbidity G47.00 and BMI 40.0-44.9, adult Z68.41 [facility] [address] [place] [address] 92052- 1720 Oct, [facility] [address] [place] [id number] [place] [address] 37984 -0048 Oct, Insect bite (nonvenomous), left lower leg, initial encounter S80.862A ; Bitten or stung by nonvenomous insect and other nonvenomous arthropods, initial encounter W57.XXXA and BMI 40.0-44.9, adult Z68.41 [place] [address] 45369- 3475 06 Oct, 2017 Left leg pain M79.605 [place] [address] 24890- 1630 04 Oct, 2017 Post-traumatic stress disorder, unspecified F43.10 ; Major depressive disorder, recurrent, moderate F33.1 and Problems related to release from jail Z65.2 [place] [address] 97063- 5772 2017 Arrhythmia as indication for cardiac pacemaker replacement I49.9 [place] [address] 38410- 4851 Sep, [place] [address] 62058- 9128 Sep, HTN (hypertension) I10 [place] [address] 62257- 9502 17 Sep, 2017 [place] [address] 25734- 7160 16 Sep, 2017 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 ; Chronic pain G89.29 ; Supraventricular tachycardia I47.1 and Body mass index (BMI) of 40.0-44.9 in adult Z68.41 [place] [address] 83674- 5271 Sep, [place] [address] 38588- 0704 Sep, Sarcoidosis D86.9 [place] [address] 92250- 5986 Sep, Sarcoidosis D86.9 [facility] [address], [place] [address] 1049 Sep, [facility] [address] [place] [id number] [place] [address] 40307- 0543 Sep, [facility] [address] [place] [id number] [place] [address] 06753- 5411 Sep, [facility] [address] [place] [id number] [place] [address] 94188- 8323 Sep, [facility] [address] [place] [id number] [place] [address] 62583- 9688 Sep, Left leg pain M79.605 [facility] [address] [place] [id number] [place] [address] 19766- 6674 Sep, HTN (hypertension) I10 [facility] [address] [place] [id number] [place] [address] 52016- 4044 Sep, [facility] [address] [place] [id number] [place] [address] 94967- 3512 Sep, Post-traumatic stress disorder, unspecified F43.10 ; Major depressive disorder, recurrent, moderate F33.1 and Problems related to release from jail Z65.2 [facility] [address] [place] [address] 98944- 9227 Sep, [facility] [address] [place] [id number] [place] [address] 05028- 3707 Aug, [facility] [address] [place] [id number] [place] [address] 09077- 4323 Aug, Sarcoidosis D86.9 [facility] [address] [place] [id number] [place] [address] 97191- 1159 Aug, Sarcoidosis D86.9 [facility] [address], [place] [address] 9551 Aug, HTN (hypertension) I10 [facility] [address] [place] [id number] [place] [address] 44375- 4317 18 Aug, 2017 Post-traumatic stress disorder, unspecified F43.10 ; Major depressive disorder, recurrent, moderate F33.1 and Problems related to release from jail Z65.2 [place] [address] [place] [id number] [place] [address] 04960- 9846 11 Aug, 2017 [place] [address] [place] [id number] [place] [address] 79243- 7352 Aug, Left leg pain M79.605 [place] [address] [place] [id number] [place] [address] 38047- 8922 Jul, Post-traumatic stress disorder, chronic F43.12 ; Anxiety F41.9 ; Problems related to release from jail Z65.2 and BMI 40.0-44.9, adult Z68.41 [place] [address] [place] [id number] [place] [address] 75260- 2873 20 Jul, 2017 HTN (hypertension) I10 ; Body mass index (BMI) of 40.0-44.9 in adult Z68.41 ; Acute swimmer''s ear of both sides H60.333 and Chronic pain G89.29 [place] [address] [place] [id number] [place] [address] 44558- 4600 19 Jul, 2017 Glaucoma H40.9 [place] [address] [place] [id number] [place] [address] 26486- 7695 14 Jul, 2017 [place] [address] [place] [id number] [place] [address] 22508- 0314 13 Jul, 2017 Sarcoidosis D86.9 [place] [address] [place] [id number] [place] [address] 10151- 7044 Jul, Left leg pain M79.605 [place] [address] [place] [id number] [place] [address] 00355- 5586 Jul, Sarcoidosis D86.9 [place] [address] [place] [id number] [place] [address] 66464- 1043 Jul, Post-traumatic stress disorder, unspecified F43.10 ; Major depressive disorder, recurrent, moderate F33.1 and Problems related to release from jail Z65.2 [facility] [address] [place] [id number] [place] [address] 20936- 6966 June, [facility] [address] [place] [id number] [address] June, Sore throat J02.9 and BMI 40.0-44.9, adult Z68.41 [facility] [address] [place] [id number] [place] [address] 98290- 6426 June, [facility] [address] [place] [id number] [place] [address] 32789- 8685 June, [facility] [address] [place] [id number] [place] [address] 79895- 3602 June, [facility] [address] [place] [id number] [place] [address] 65302- 4554 June, Left leg pain M79.605 [facility] [address] [place] [id number] [place] [address] 93471- 9745 June, Sarcoidosis D86.9 [facility] [address] [place] [id number] [place] [address] 66809- 5926 June, [facility] [address] [place] [id number] [place] [address] 99697- 7846 June, [facility] [address] [place] [id number] [place] [address] 76717- 6044 June, Left leg pain M79.605 [facility] [address] [place] [id number] [address]- 5989 May, [facility] [address] [place] [id number] [place] [address] 06024- 2456 May, [facility] [address] [place] [id number] [place] [address] 57376- 7951 May, [facility] [address] [place] [id number] [place] [address] 85249- 1155 16 May, 2017 Left leg pain M79.605 [facility] [address] [place] [id number] [place] [address] 68270- 2530 May, Post-traumatic stress disorder, unspecified F43.10 ; Major depressive disorder, recurrent, moderate F33.1 and Problems related to release from jail Z65.2 [place] [address] 46582- 7202 04 May, 2017 Chronic pain G89.29 ; Anxiety F41.9 ; Chest pain, unspecified type R07.9 and BMI 40.0-44.9, adult Z68.41 [place] [address] 80035- 4094 30 Apr, 2017 [place] [address] [place] [id number] [place] [address] 05516- 0965 29 Apr, 2017 Left leg pain M79.605 [place] [address] 40060- 6336 27 Apr, 2017 Post-traumatic stress disorder, unspecified F43.10 ; Problems related to release from jail Z65.2 ; Anxiety F41.9 and BMI 40.0-44.9 , adult Z68.41 [place] [address] [place] [id number] [place] [address] 26703- 1227 Apr, [place] [address] [place] [id number] [place] [address] 02449- 0651 Apr, Left leg pain M79.605 [place] [address] [place] [id number] [place] [address] 89071- 7097 13 Apr, 2017 Post-traumatic stress disorder, unspecified F43.10 ; Major depressive disorder, recurrent, moderate F33.1 and Problems related to release from jail Z65.2 [place] [address] [place] [id number] [place] [address] 30058- 4377 Apr, [place] [address] [place] [id number] [place] [address] 44112- 7039 Apr, Chronic pain G89.29 ; 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 [address] [address] -4138 Mar, Cough R05 ; Viral gastroenteritis A08.4 and BMI 40.0-44.9, adult Z68.41 [place] [address] 53502- 0694 Mar, Left leg pain M79.605 [place] [address] [place] [id number] [place] [address] 19101- 1869 Mar, Post-traumatic stress disorder, unspecified F43.10 ; Major depressive disorder, recurrent, moderate F33.1 and Problems related to release from jail Z65.2 [place] [address] [place] [id number] [place] [address] 30904- 0544 Feb, Left leg pain M79.605 [facility] [address] 43378- 0423 Feb, [place] [address] [place] [id number] [place] [address] 71552- 0909 25 Diego, 2018 BMI 40.0-44.9, adult Z68.41 ; Chronic pain syndrome G89.4 ; Migraine without aura and without status migrainosus, not intractable G43.009 ; Mitral valve prolapse I34.1 and 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 [facility] [address] [place] [id number] [place] [address] 29704- 8941 Feb, Post-traumatic stress disorder, chronic F43.12 ; Anxiety F41.9 ; Problems related to release from jail Z65.2 and BMI 40.0-44.9, adult Z68.41 [place] [address] 54149- 0127 Feb, Post-traumatic stress disorder, unspecified F43.10 ; Major depressive disorder, recurrent, moderate F33.1 and Problems related to release from jail Z65.2 [place] [address] [place] [id number] [place] [address] 32773- 5659 Feb, Left leg pain M79.605 [place] [address] 01537- 5900 Jan, Post-traumatic stress disorder, unspecified F43.10 ; Major depressive disorder, recurrent, moderate F33.1 and Problems related to release from jail Z65.2 [place] [address] [place] [id number] [place] [address] 18703- 1425 Jan, [place] [address] [place] [id number] [place] [address] 90580- 6115 Jan, [place] [address] [place] [id number] [place] [address] 66264- 0895 Jan, Anxiety F41.9 [place] [address] 98265- 1102 Jan, Left leg pain M79.605 [place] [address] [place] [id number] [place] [address] 48277- 9934 Dec, Left leg pain M79.605 [place] [address] 48296- 0279 Dec, [facility] [address] [place] [address] 68517- 5137 Dec, Post-traumatic stress disorder, unspecified F43.10 ; Major depressive disorder, recurrent, moderate F33.1 and Problems related to release from jail Z65.2 [facility] [address] [place] [id number] [place] [address] 53822- 6864 31 Nov, 2016 Chronic pain G89.29 and Anxiety F41.9 [place] [address] [place] [id number] [place] [address] 87930- 6859 24 Nov, 2016 Chronic pain G89.29 and Anxiety F41.9 [place] [address] [place] [id number] [place] [address] 12868- 1185 16 Nov, 2016 Post-traumatic stress disorder, unspecified F43.10 ; Major depressive disorder, recurrent, moderate F33.1 and Problems related to release from jail Z65.2 [facility] [address] [place] [id number] [place] [address] 77028- 3850 09 Nov, 2016 Other abnormal findings in specimens from other organs, systems and tissues R89.8 ; Other male erectile dysfunction N52.8 ; Body mass index (BMI) of 40.0-44.9 in adult Z68.41 and Morbid (severe) obesity due to excess calories E66.01 [facility] [address] [place] [address] 82463- 5393 02 Nov, 2016 Post-traumatic stress disorder, unspecified F43.10 ; Major depressive disorder, recurrent, moderate F33.1 and Problems related to release from jail Z65.2 [facility] [address] [place] [id number] [place] [address] [id number] Oct, Dental examination Z01.20 [facility] [address] [place] [address] 55337- 8416 Oct, [facility] [address] [place] [address] 36273- 8647 Oct, Encounter for immunization Z23 [place] [address] [place] [id number] [place] [address] 21920- 3299 Oct, Chronic pain G89.29 ; Anxiety F41.9 ; Arrhythmia as indication for cardiac pacemaker replacement I49.9 and Glaucoma H40.9 [place] [address], [place] [address]- 7882 Oct, Anxiety F41.9 ; Post-traumatic stress disorder, chronic F43.12 and Problems related to release from jail Z65.2 [place] [address] [place] [id number] [place] [address] 26570- 9324 Oct, Post-traumatic stress disorder, unspecified F43.10 ; Major depressive disorder, recurrent, moderate F33.1 and Problems related to release from jail Z65.2 [place] [address] [place] [id number] [place] [address] 92925- 5093 Sep, Chronic pain G89.29 and Anxiety F41.9 [place] [address] [place] [id number] [place] [address] 42083- 5863 Sep, Post-traumatic stress disorder, unspecified F43.10 ; Major depressive disorder, recurrent, moderate F33.1 and Problems related to release from jail Z65.2 [place] [address] [place] [address] 42726- 0946 Sep, Post-traumatic stress disorder, unspecified F43.10 ; Major depressive disorder, recurrent, moderate F33.1 and Problems related to release from jail Z65.2 [place] [address] [place] [address] 83529- 7319 Sep, Chronic pain G89.29 [place] [address] [place] [id number] [place] [address] 17074- 6810 Aug, Dental caries, unspecified K02.9 [place] [address] [place] [id number] [place] [address] 77963- 7186 Aug, Sleep apnea, obstructive G47.33 ; Obesity E66.9 ; Chronic pain G89.29 ; HTN (hypertension) I10 ; Major depressive disorder, recurrent, moderate F33.1 ; Anxiety F41.9 ; Chronic tension headaches G44.229 ; Mitral valve prolapse I34.1 ; Arrhythmia as indication for cardiac pacemaker replacement I49.9 ; Dental caries, unspecified K02.9 ; Primary insomnia F51.01 and Hyperlipidemia E78.5 [facility] [address] [place] [address] 40057- 1027 Aug, Post-traumatic stress disorder, unspecified F43.10 ; Major depressive disorder, recurrent, moderate F33.1 and Problems related to release from jail Z65.2 [facility] [address] [place] [id number] [place] [address] 45073- 9744 Aug, Dental examination Z01.20 [facility] [address] [place] [id number] [place] [address] [id number] Aug, Dental examination Z01.20 [facility] [address] [place] [id number] [place] [address] 16612- 3967 Aug, Post-traumatic stress disorder, unspecified F43.10 ; Major depressive disorder, recurrent, moderate F33.1 and Problems related to release from jail Z65.2 [place] [address] [place] [id number] [place] [address] 63018- 2253 Aug, Chronic pain G89.29 and Primary insomnia F51.01 [facility] [address] [place] [id number] [place] [address] 98262- 4071 Jul, [facility] [address] [place] [id number] [place] [address] 06776- 0492 Jul, [facility] [address] [place] [id number] [place] [address] 78314- 2167 Jul, Nausea R11.0 [facility] [address] [place] [id number] [place] [address] 85159- 0021 Jul, Arrhythmia as indication for cardiac pacemaker replacement I49.9 [facility] [address] [place] [id number] [place] [address] 82274- 9415 Jul, Post-traumatic stress disorder, unspecified F43.10 ; Major depressive disorder, recurrent, moderate F33.1 and Problems related to release from jail Z65.2 [place] [address] [place] [id number] [place] [address] 85293- 8879 09 Jul, 2016 Anxiety F41.9 [place] [address] [place] [id number] [place] [address] 95778- 9613 08 Jul, 2016 Chronic pain G89.29 [place] [address] [place] [id number] [place] [address] 35054- 9106 02 Jul, 2016 Sleep apnea, obstructive G47.33 ; Hyperlipidemia E78.5 ; Chronic pain G89.29 ; 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 ; Major depressive disorder, recurrent, moderate F33.1 ; Anxiety F41.9 ; Mitral valve prolapse I34.1 ; Arrhythmia as indication for cardiac pacemaker replacement I49.9 ; Primary insomnia F51.01 ; Bilateral headaches R51 and Environmental allergies Z91.09 [place] [address] [place] [id number] Jul, Post-traumatic stress disorder, unspecified F43.10 ; Major depressive disorder, recurrent, moderate F33.1 and Problems related to release from jail Z65.2 [id number] [place] [address] June, Post-traumatic stress disorder, chronic F43.12 ; Anxiety F41.9 ; Problems related to release from jail Z65.2 ; Sleep apnea, obstructive G47.33 and Primary insomnia F51.01 [place] [id number] [address] June, [place] [id number] [place] [address]- [address]2 June, [place] [id number] [place] [address]162- [address]80 June, [place] [id number] [place] [address] 12063- 0067 June, Chronic pain G89.29 [place] [address] [place] [id number] [place] [address]14- 4865 June, Chronic pain G89.29 [place] [address] [place] [id number] [place] [address] 37194- [address] June, Lipoma of left lower extremity D17.24 ; Open wound T14.8 and Swelling of left lower extremity M79.89 [place] [address] [place] [id number] [place] [address] 49614- [address]79 June, Post-traumatic stress disorder, unspecified F43.10 ; Major depressive disorder, recurrent, moderate F33.1 and Problems related to release from jail Z65.2 [place] [address] [place] [id number] [place] [address] 22856- 8436 May, Lipoma of left lower extremity D17.24 ; Major depressive disorder, recurrent, moderate F33.1 ; Sleep apnea, obstructive G47.33 ; Hyperlipidemia E78.5 ; Obesity E66.9 ; HTN (hypertension) I10 ; Glaucoma H40.9 ; CAD (coronary artery disease) I25.10 ; Chronic tension headaches G44.229 ; Chronic pain G89.29 ; Anxiety F41.9 ; Nausea R11.0 and Primary insomnia F51.01 [place] [id number] [place] [address] 38628- 9398 May, [place] [address] [place] [id number] [place] [address] 03316- 9959 May, Chronic pain G89.29 [place] [address] [place] [id number] [place] [address] 51607- 7773 May, [place] [id number] [place] [address] 43735- 1511 Apr, Post-traumatic stress disorder, unspecified F43.10 ; Major depressive disorder, recurrent, moderate F33.1 and Problems related to release from jail Z65.2 [facility] [address] [place] [id number] [place] [address] 21813- 6833 Apr, Primary insomnia F51.01 ; Post-traumatic stress disorder, chronic F43.12 and Problems related to release from jail Z65.2 [facility] [address] [place] [id number] [place] [address] 05768- 0408 17 Apr, 2016 Post-traumatic stress disorder, unspecified F43.10 ; Major depressive disorder, recurrent, moderate F33.1 and Problems related to release from jail Z65.2 [place] [address] [place] [id number] [place] [address] 17087- 6097 16 Apr, 2016 [place] [address] [place] [id number] [place] [address] 95208- 0178 Apr, Sleep apnea, obstructive G47.33 ; Chronic pain G89.29 ; HTN (hypertension) I10 ; Mitral valve prolapse I34.1 ; Shoulder pain, left M25.512 ; Arrhythmia as indication for cardiac pacemaker replacement I49.9 ; Glaucoma H40.9 ; Bilateral headaches R51 ; Environmental allergies Z91.09 ; Primary insomnia F51.01 and Nausea R11.0 [place] [address] [place] [id number] [place] [address] 23793- 8482 Apr, [place] [address] [place] [address] [id number] [place] [address] 06851- 3667 Apr, [place] [address] [place] [address] [id number] [place] [address] 62853- 8902 Apr, Post-traumatic stress disorder, unspecified F43.10 ; Major depressive disorder, recurrent, moderate F33.1 and Problems related to release from jail Z65.2 [place] [id number] [place] [address] 09429- 5603 Apr, HTN (hypertension) I10 [place] [address] [place] [id number] [place] [address] 39691- 7580 Apr, HTN (hypertension) I10 [place] [address] [place] [id number] [place] [address] 07493- 3190 14 Mar, 2016 Chronic pain G89.29 ; Primary insomnia F51.01 and Problems related to release from jail Z65.2 [facility] [address] [address] 1295 07 Mar, 2016 Post-traumatic stress disorder, unspecified F43.10 ; Major depressive disorder, recurrent, moderate F33.1 and Problems related to release from jail Z65.2 [facility] [id number] [place] [address] 74665- 1751 Feb, Post-traumatic stress disorder, unspecified F43.10 ; Major depressive disorder, recurrent, moderate F33.1 and Problems related to release from jail Z65.2 [place] [address] [place] [id number] [place] [address] 22410- 3093 Feb, Chronic tension headaches G44.229 [place] [address] [place] [id number] [place] [address] 73205- 0587 Feb, Sleep apnea, obstructive G47.33 ; Obesity E66.9 ; Hyperlipidemia E78.5 ; Glaucoma H40.9 ; Chronic pain G89.29 ; HTN (hypertension ) I10 ; 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 ; 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 ; Chronic tension headaches G44.229 ; Cough R05 ; CAD (coronary artery disease) I25.10 ; Problems related to release from jail Z65.2 ; Arrhythmia as indication for cardiac pacemaker replacement I49.9 and Primary insomnia F51.01 [facility] [id number] [place] [address] 30747- 9241 Feb, Post-traumatic stress disorder, unspecified F43.10 and Chronic pain G89.29 [facility] [address] [address]- 6488 Feb, [facility] [id number] [place] [address] [id number] Feb, Dental caries K02.9 [facility] [id number] [place] [address] 73672- 6675 Feb, [facility] [address] [place] [address]- 7335 Feb, Post-traumatic stress disorder, unspecified F43.10 ; Major depressive disorder, recurrent, moderate F33.1 and Problems related to release from jail Z65.2 [place] [address] [place] [id number] [place] [address] 71343- 1439 Jan, Sleep apnea, obstructive G47.33 and Chronic pain G89.29 [place] [id number] [place] [address] 68566- 3855 Jan, [place] [id number] [place] [address] 07843- 2829 Jan, Dental examination Z01.20 [place] [id number] [place] [address] 94494- 7647 Jan, [place] [id number] [place] [address] 71592- 3574 Jan, [place] [address] [place] [id number] [place] [address] 36657- 7503 Dec, Post-traumatic stress disorder, unspecified F43.10 ; Major depressive disorder, recurrent, moderate F33.1 and Problems related to release from jail Z65.2 [place] [id number] [place] [address] 01255- 3274 Dec, Encounter for immunization Z23 ; Problems related to release from jail Z65.2 ; Sleep apnea, obstructive G47.33 and Post-traumatic stress disorder, chronic F43.12 [place] [id number] [place] [address] 37703- 0404 Dec, Sleep apnea, obstructive G47.33 ; Hyperlipidemia E78.5 ; Chronic pain G89.29 ; Glaucoma H40.9 ; HTN (hypertension) I10 ; Post-traumatic stress disorder, unspecified F43.10 ; Anxiety F41.9 ; Chronic tension headaches G44.229 ; Mitral valve prolapse I34.1 and CAD (coronary artery disease) I25.10 [place] [id number] [place] [address] 40165- 4015 Dec, Post-traumatic stress disorder, unspecified F43.10 ; Major depressive disorder, recurrent, moderate F33.1 and Problems related to release from jail Z65.2 [place] [address] [place] [id number] [place] [address] 61569- 0127 Nov, Chronic pain G89.29 [place] [address] [place] [id number] [place] [address] 248865- 4188 Nov, Post-traumatic stress disorder, unspecified F43.10 ; Major depressive disorder, recurrent, moderate F33.1 and Problems related to release from jail Z65.2 [place] [address] [place] [id number] [place] [address] 401496- 5795 Oct, [place] [address] [place] [id number] [place] [address] 66198- 6671 Oct, [place] [address] [place] [id number] [place] [address] 40254- 2991 Oct, Post-traumatic stress disorder, unspecified F43.10 ; Major depressive disorder, recurrent, moderate F33.1 and Problems related to release from jail Z65.2 [place] [address] [place] [id number] [place] [address] 09119- 6818 08 Oct, 2015 [place] [address] [place] [id number] [place] [address] 90934- 8723 Oct, Environmental allergies Z91.09 ; Cough R05 and 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 [place] [address] [place] [id number] [place] [address] 06474- 0956 Sep, [place] [address] [place] [id number] [place] [address] 35740- 5408 Sep, Post-traumatic stress disorder, unspecified F43.10 ; Major depressive disorder, recurrent, moderate F33.1 and Problems related to release from jail Z65.2 [place] [address] [place] [id number] [place] [address] 86953- 9901 Sep, Chronic pain G89.29 [facility] [address], [place] [address]- 5056 Sep, Pain in left shoulder M25.512 ; Pain in right shoulder M25.511 and Other chronic pain G89.29 [facility] [address], [place] [address]- 1283 Sep, [facility] [address] [place] [id number] [place] [address] 31588- 9763 Sep, [facility] [id number] [place] [address] 23561- 7621 Sep, [facility] [address] [place] [id number] [place] [address] [id number] Aug, Dental examination Z01.20 [facility] [address] [place] [id number] [place] [address] 18850- 9851 Aug, Post-traumatic stress disorder, unspecified F43.10 ; Open- angle glaucoma of both 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 and Problems related to release from jail Z65.2 [facility] [id number] [place] [address] 09435- 8411 Aug, [facility] [id number] [place] [address] 57175- 5659 Aug, Sleep apnea, obstructive G47.33 ; Obesity E66.9 ; Hyperlipidemia E78.5 ; Bilateral headaches R51 ; HTN (hypertension) I10 ; Post- traumatic stress disorder, unspecified F43.10 ; Anxiety F41.9 ; Neuropathy G62.9 ; Glaucoma H40.9 and Chronic pain G89.29 [facility] [address] [id number] [id number] Aug, Encounter for dental examination Z01.20 [facility] [id number] [place] [address] 93042- 2357 Aug, Post-traumatic stress disorder, unspecified F43.10 ; Major depressive disorder, recurrent, moderate F33.1 and Problems related to release from jail Z65.2 [facility] [address], [place] [address]- 3388 Aug, [facility] [address], [place] [address]- 6387 Jul, [facility] [address], [place] [address]- 7634 Jul, Post-traumatic stress disorder, unspecified F43.10 and Major depressive disorder, recurrent, moderate F33.1 [facility] [address], [place] [address]- 0639 Jul, [facility] [address] [place] [id number] [place] [address] 93256- 5512 Jul, [facility] [address] [place] [id number] [place] [address] 39770- 4095 Jul, Chronic pain G89.29 [facility] [address] [place] [id number] [place] [address] 18778- 9034 June, Post-traumatic stress disorder, unspecified F43.10 and Major depressive disorder, recurrent, moderate F33.1 [facility] [address], [place] [address]- 0511 June, [facility] [address], [place] [address]- 1471 June, Chronic pain G89.29 [facility] [id number] [place] [address] 47798- 7895 June, Post-traumatic stress disorder, unspecified F43.10 and Major depressive disorder, recurrent, moderate F33.1 [facility] [id number] [place] [address] 53900- 5574 May, Post-traumatic stress disorder, unspecified F43.10 and Major depressive disorder, recurrent, moderate F33.1 [facility] [address], [place] [address]- 1324 May, [facility] [address], [place] [address]- 0476 May, [facility] [address] 9263 May, [facility] [address] [place] [id number] [place] [address] 983597- 5748 Apr, [facility] [address] [place] [id number] [place] [address] 268983- 2885 Apr, Post-traumatic stress disorder, unspecified F43.10 and Sleep apnea, obstructive G47.33 [facility] [address] [place] [id number] [place] [address] 10835- 3223 Apr, [facility] [address] [place] [id number] [place] [address] 46179- 9113 Apr, Shoulder pain, left M25.512 [facility] [address] [place] [id number] [place] [address] 60537- 2873 Apr, Post-traumatic stress disorder, unspecified F43.10 and Major depressive disorder, recurrent, moderate F33.1 [facility] [address], [place] [address]- 9829 Apr, [facility] [address], [place] [address]- 8200 Apr, [facility] [address] [place] [id number] [address]- 2703 Apr, [facility] [id number] [place] [address] 71619- 0617 Apr, Left shoulder pain M25.512 [facility] [address] [place] [id number] 0299 Mar, [facility] [address] 3640 Mar, [facility] [address] [place] [id number] [place] [address] 31711- 1224 Mar, [place] [id number] [place] [address] 79831- 4125 Mar, Sleep apnea, obstructive G47.33 ; Obesity E66.9 ; Chronic pain G89.29 ; Hyperlipidemia E78.5 ; HTN (hypertension) I10 ; 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 ; Major depressive disorder, recurrent, moderate F33.1 and Anxiety F41.[address] 90716- 2206 Mar, [address] 49044- 6261 Mar, Post-traumatic stress disorder, unspecified F43.10 and Major depressive disorder, recurrent, moderate F33.[address] 65125- 9333 Mar, [address] 43245- 4787 Mar, HTN (hypertension) I10 ; 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 ; Obesity E66.9 ; Hyperlipidemia E78.5 ; Glaucoma H40.9 ; Chronic pain G89.29 and CAD (coronary artery disease) I25.10 [place] [id number] [place] [address] 70162- 5583 Feb, [place] [id number] [place] [address] 36624- 5188 Feb, Post-traumatic stress disorder, unspecified F43.10 ; Obesity E66.9 ; Sleep apnea, obstructive G47.33 and 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 [address] 58162- 4651 Feb, Post-traumatic stress disorder, unspecified F43.10 and Major depressive disorder, recurrent, moderate F33.[address] 40306- 3507 Feb, [facility] [address] [place] [id number] [place] [address] 30248- 7947 Feb, [place] [address] 06410- 0606 Feb, HTN (hypertension) I10 ; Post-traumatic stress disorder, unspecified F43.10 ; 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 ; Obesity E66.9 ; Hyperlipidemia E78.5 ; Chronic pain G89.29 ; Glaucoma H40.9 ; Mitral valve prolapse I34.1 and Bilateral headaches R51 [place] [address] [place] [id number] [place] [address] 63111- 5726 Feb, [place] [address] 26828- 7011 Feb, Post-traumatic stress disorder, unspecified F43.10 and Major depressive disorder, recurrent, moderate F33.1 [place] [id number] [place] [address] 34052- 7470 Feb, [place] [address] [place] [id number] [place] [address] 86481- 6708 Feb, [place] [id number] [place] [address] 06051- 8812 Jan, [place] [address] [place] [id number] [place] [address] 61781- 9322 Jan, [place] [address] [place] [id number] [place] [address] 70587- 6556 Jan, Obesity E66.9 ; HTN (hypertension) I10 ; 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 ; Major depressive disorder, recurrent, moderate F33.1 ; Glaucoma H40.9 ; Hyperlipidemia E78.5 ; Sleep apnea, obstructive G47.33 ; Chronic pain G89.29 ; Anxiety F41.9 ; Chronic tension headaches G44.229 and Cough R05 [place] [id number] [place] [address] 15376- 4612 Jan, [place] [address] [place] [id number] [place] [address] 12848- 3391 Jan, [place] [address] [place] [id number] [place] [address] 43966- 6539 Jan, Post-traumatic stress disorder, unspecified F43.10 ; Obesity E66.9 ; Sleep apnea, obstructive G47.33 and 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 [address] 834116- 5838 Jan, [address] 69411- 6726 Jan, Post-traumatic stress disorder, unspecified F43.10 and Major depressive disorder, recurrent, moderate F33.[address] 32881- 3715 Dec, [address] 979339- 7538 Dec, Sleep apnea, obstructive G47.33 ; Obesity E66.9 ; Hyperlipidemia E78.5 ; Glaucoma H40.9 ; Chronic pain G89.29 ; HTN (hypertension ) I10 ; 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 ; Anxiety F41.9 and CAD (coronary artery disease) I25.10 [place] [address] [place] [id number] [place] [address] 39855- 0406 Nov, [place] [id number] [place] [address] 68266- 4697 Nov, [place] [id number] [place] [address] 76870- 4393 Nov, [address] 33993- 4759 Nov, [place] [id number] [place] [address] 57772- 7851 Nov, [address] 12402- 8304 Nov, Encounter for immunization Z23 ; Sleep apnea, obstructive G47.33 ; Obesity E66.9 ; Hyperlipidemia E78.5 ; Glaucoma H40.9 ; Chronic pain G89.29 ; Anxiety F41.9 ; Chronic tension headaches G44.229 and HTN (hypertension ) I10 [facility] [address] [place] [id number] [place] [address] 17210- 1199 Nov, [facility] [address] 88336- 2921 Nov, [facility] [address] 62783- 5719 Nov, Dizziness R42 [facility] [address] 25570- 2318 Nov, [facility] [address] 93332- 6883 Oct, [facility] [address] 60434- 1148 Oct, [facility] [address] 56889- 4653 Oct, [facility] [address] [place] [address] 52013- 2216 Oct, [facility] [address] 63210- 3456 Oct, Dizziness 780.4 ; Essential hypertension 401.9 ; Obesity 278.00 ; Hyperlipidemia 272.4 ; Chronic pain 338.29 ; Glaucoma 365.9 and Anxiety 300.00 [facility] [address] 98205- 6199 Oct, Essential hypertension 401.9 ; Hyperlipidemia 272.4 ; Glaucoma 365.9 ; Obesity 278.00 ; Chronic pain 338.29 and Allergy to insects V15.06 [facility] [address] 40256- 9008 Sep, [facility] [address] [place] [id number] [address]- 5110 Sep, [facility] [address] [facility] [id number] [address]- 2092 Sep, [facility] [address] [facility] [id number], [place] [address]- 5405 Sep, [facility] [address] [facility] [id number], [place] [address]- 7686 Aug, Essential hypertension 401.9 ; Obesity 278.00 ; Hyperlipidemia 272.4 ; Glaucoma 365.9 ; Lipoma 214.9 ; Mitral valve prolapse 424.0 ; Angina at rest 413.9 ; Lymphedema 457.1 and Chronic pain 338.29 IMMUNIZATIONS No Known Immunizations SOCIAL HISTORY Never Assessed REASON FOR VISIT Medication Eval -- duran zaidi PLAN OF CARE Activity Details Follow Up 2 Months with [facility] records Reason: VITAL SIGNS Height 67 in 2017 Weight 270 lbs 2017 Temperature 97.6 degrees Fahrenheit 2017 Heart Rate 78 bpm 2017 Respiratory Rate 22 2017 BMI 42.28 kg/m2 2017 Blood pressure systolic 130 mmHg 2017 Blood pressure diastolic 86 mmHg 2017 MEDICATIONS Medication Instructions Dosage Frequency Start Date End Date Duration Status Methotrexate 2.5 MG 3 tablets once for one week then 4 tablets once for 2 weeks then 6 tablets q7days there after Active Losartan Potassium 100 MG Orally Once a day 1 tablet 24h Active EPINEPHrine 0.3 MG/0.3ML as directed Jul, Active Folic Acid 1 MG Orally Once a day 1 tablet 24h Active Topamax 100 MG TAKE ONE TABLET BY MOUTH TWICE DAILY 90 Active Cartia XT 300 MG Orally Once a day 1 capsule 24h 90 days Active Oxycodone HCl 5 mg Orally Once a day 1 tablet 24h June, Not- Taking Zofran ODT 4 MG Orally every 8 hrs prn 1 tablet on the tongue and allow to dissolve 10 Not-Taking Hydrocodone-Acetaminophen 7.5-325 MG Orally 4 times a day 1 tablet 6h 07 Sep, 2017 Active Timolol Hemihydrate 0.5 % Ophthalmic 2 times a day 1 drop into both eyes 12h 20 Dec, 2014 Not-Taking Cymbalta 30 MG Orally Once a day 1 capsule 24h Not-Taking Metoprolol Succinate ER 200 mg Orally Once a day 1 tablet 24h 90 days Active Benzonatate 100 MG Orally Three times a day 1 capsule as needed 8h Not-Taking Atorvastatin Calcium 20 MG TAKE ONE TABLET BY MOUTH ONCE DAILY 90 Active Xanax 1 MG Orally Twice a day for anxiety 1 tablet 30 days Active Gabapentin 300 MG TAKE ONE CAPSULE BY MOUTH TWICE DAILY 90 Not- Taking Nitrostat 0.4 MG Sublingual every 5 minutes x 3 PRN 1 tablet 30 days Active Triamterene-HCTZ 37.5-25 MG Orally Once a day 1 tablet in the morning 24h Not-Taking RESULTS No Results PROCEDURES Procedure Date Ordered Result Body Site LAB [facility] 2017 SUZETTE, ROUTINE* 2017 INSTRUCTIONS MEDICATIONS ADMINISTERED No Known Medications MEDICAL [...]
--- OUTSIDE RECORDS SUMMARY | 2018-02-04 13:56 | XMS REPORT ---
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 Name Role Phone ALENA ÁLVAREZ Unavailable PROBLEMS Type Condition ICD9-CM Code KIA35-NZ Code Onset Dates Condition Status SNOMED Code Problem Hyperlipidemia E78.5 Active 49511450 Problem Sleep apnea, obstructive G47.33 Active 13257629 Problem Primary insomnia F51.01 Active 0406622 Problem Chronic pain G89.29 Active 90123668 Problem Morbid (severe) obesity due to excess calories E66.01 Active 065801200 Problem Myocarditis, unspecified chronicity, 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 Active 54636576 Problem Other male erectile dysfunction N52.8 Active 182098761 Problem 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 Active 856572948 Problem Body mass index (BMI) of 40.0-44.9 in adult Z68.41 Active 928334733 Problem Supraventricular tachycardia I47.1 Active 6751885 Problem Insomnia disorder with non-sleep disorder mental comorbidity G47.00 Active 20290965 Problem Chronic tension headaches G44.229 Active 047083096 Problem HTN (hypertension) I10 Active 69794877 Problem 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 Active 225785538 Problem Chronic pain syndrome G89.4 Active 648673098 Problem Migraine without aura and without status migrainosus, not intractable G43.009 Active 145742981 Problem Sarcoidosis D86.9 Active 42801375 Problem Problems related to release from group home Z65.2 Active [id number] Problem 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 Active 62574782 Problem Mitral valve prolapse I34.1 Active 841955704 Problem Anxiety F41.9 Active 04306923 Problem Major depressive disorder, recurrent, moderate F33.1 Active 45833318 Problem Environmental allergies Z91.09 Active 151809313 Problem Arrhythmia as indication for cardiac pacemaker replacement I49.9 Active 55259827 Problem CAD (coronary artery disease) I25.10 Active 65733765 Problem Post-traumatic stress disorder, chronic F43.12 Active 511141174 ALLERGIES No Information ENCOUNTERS Encounter Location Date Diagnosis [facility] [address] [address] Jan, [facility] [id number] [place] [address] 16861- 5628 Jan, [facility] [address] [address]- [address] Dec, Left leg pain M79.605 [facility] [address] [address]- 2910 Dec, Encounter for long-term (current) use of other medications Z79.899 [facility] [address] [address]- [address] Dec, [facility] [address] [address] Dec, Tooth pain K08.89 ; Active dental caries K02.9 and BMI 40.0 -44.9, adult Z68.41 [facility] [address] [address] Dec, Acute bronchitis J20.9 and BMI 40.0-44.9, adult Z68.41 [facility] [id number] [place] [address] 19447- 4233 Dec, [facility] [id number] [place] [address] 98228- 8063 Dec, [facility] [address] 30006- 8734 Dec, [facility] [id number] [place] [address] 40916- 6429 Dec, [facility] [id number] [place] [address] 90105- 8437 Nov, [facility] [address] [address] Nov, Left leg pain M79.[address] [facility] [id number] [id number] Nov, [facility] [address] [place] [address] 08240- 3034 Nov, Encounter for long-term (current) use of other medications Z79.899 [facility] [address] [place] [address] 72414- 1351 Nov, [facility] [id number] [place] [address] 57177- 5690 Nov, Left leg pain M79.605 [facility] [id number] [place] [address] [id number] Oct, Dental examination Z01.20 [facility] [id number] [place] [address] 80393- 4806 Oct, Insomnia disorder with non-sleep disorder mental comorbidity G47.00 [facility] [id number] [place] [address] 91256- 5151 Oct, Post-traumatic stress disorder, chronic F43.12 ; Insomnia disorder with non-sleep disorder mental comorbidity G47.00 and BMI 40.0-44.9, adult Z68.41 [facility] [id number] [place] [address] 57859- 8680 Oct, [facility] [address] [place] [address] 64480 -4541 18 Oct, 2017 Insect bite (nonvenomous), left lower leg, initial encounter S80.862A ; Bitten or stung by nonvenomous insect and other nonvenomous arthropods, initial encounter W57.XXXA and BMI 40.0-44.9, adult Z68.41 [facility] [address] [place] [address] 39164- 7131 06 Oct, 2017 Left leg pain M79.605 [facility] [id number] [place] [address] 42188- 5407 04 Oct, 2017 Post-traumatic stress disorder, unspecified F43.10 ; Major depressive disorder, recurrent, moderate F33.1 and Problems related to release from group home Z65.2 [facility] [address] 84409- 5788 2017 Arrhythmia as indication for cardiac pacemaker replacement I49.9 [facility] [address] 64731- 1690 Sep, [facility] [address] 85175- 2975 Sep, HTN (hypertension) I10 [facility] [address] 95044- 4780 17 Sep, 2017 [facility] [address] 14823- 4979 16 Sep, 2017 Body mass index (BMI) of 40.0-44.9 in adult Z68.41 ; Chronic pain G89.29 and Supraventricular tachycardia I47.1 [facility] [address] 84062- 8260 Sep, [facility] [id number] [place] [address] 45880- 6047 Sep, Sarcoidosis D86.9 [facility] [address] 26668- 8301 Sep, Sarcoidosis D86.9 [facility] [address] 82125- 6753 Sep, [facility] [address] 48360- 3646 Sep, [facility] [address] [address]- 2792 Sep, [facility] [address] [place] [address]- 7[address] Sep, [facility] [address] [address] 0256 Sep, Left leg pain M79.605 [facility] [address] [address] 2546 Sep, HTN (hypertension) I10 [facility] [id number] [place] [address] 39470 2546 Sep, [facility] [address] [address] 2007 Sep, Post-traumatic stress disorder, unspecified F43.10 ; Major depressive disorder, recurrent, moderate F33.1 and Problems related to release from group home Z65.2 [facility] [address] [address] 5[address] Sep, [facility] [id number] [place] [address] 31416- 8287 Aug, [facility] [address] [place] [address] 60475- 7106 Aug, Sarcoidosis D86.9 [facility] [address] [address] 2546 Aug, Sarcoidosis D86.9 [facility] [address] [address] 2546 Aug, HTN (hypertension) I10 [facility] [address] [address]- 2544 Aug, Post-traumatic stress disorder, unspecified F43.10 ; Major depressive disorder, recurrent, moderate F33.1 and Problems related to release from group home Z65.2 [facility] [address] [address] 29[address] Aug, [facility] [address] [address]- 0946 Aug, Left leg pain M79.605 [facility] [id number] [place] [address] 13567- 7701 Jul, Post-traumatic stress disorder, chronic F43.12 ; Anxiety F41.9 ; Problems related to release from group home Z65.2 and BMI 40.0-44.9, adult Z68.41 [facility] [address] 844[address]- 9622 20 Jul, 2017 HTN (hypertension) I10 ; Body mass index (BMI) of 40.0-44.9 in adult Z68.41 ; Acute swimmer''s ear of both sides H60.333 and Chronic pain G89.29 [place] [address] 118[address]- 3164 19 Jul, 2017 Glaucoma H40.9 [facility] [address] 23694- 7082 14 Jul, 2017 [facility] [address] 79176- 5797 13 Jul, 2017 Sarcoidosis D86.9 [facility] [address] 14523- 4251 12 Jul, 2017 Left leg pain M79.605 [facility] [address] 11034- 6831 12 Jul, 2017 Sarcoidosis D86.9 [facility] [address] 81218- 4956 Jul, Post-traumatic stress disorder, unspecified F43.10 ; Major depressive disorder, recurrent, moderate F33.1 and Problems related to release from group home Z65.2 [facility] [address] 98324- 0502 June, [facility] [id number] [place] [address] 92292 -6817 June, Sore throat J02.9 and BMI 40.0-44.9, adult Z68.41 [facility] [address] [address]- 5170 June, [facility] [address] [address]- 1276 June, [facility] [address] [address]- 8766 June, [facility] [id number] [place] [address] 07786- 4230 June, Left leg pain M79.605 [facility] [id number] [place] [address] 26415- 4046 June, Sarcoidosis D86.9 [facility] [id number] [place] [address] 53457- 6236 June, [facility] [address] [place] [address] 98234- 1417 June, [facility] [address] [address]- 1041 June, Left leg pain M79.605 [facility] [address] [address]- 6954 May, [facility] [address] [address]- 3088 May, [facility] [address] [address]- 5943 May, [facility] [address] [address]- 4400 May, Left leg pain M79.605 [facility] [address], [place] [address]- 9080 May, Post-traumatic stress disorder, unspecified F43.10 ; Major depressive disorder, recurrent, moderate F33.1 and Problems related to release from group home Z65.2 [facility] [address] [place] [address] 71540- 5952 04 May, 2017 Chronic pain G89.29 ; Anxiety F41.9 ; Chest pain, unspecified type R07.9 and BMI 40.0-44.9, adult Z68.41 [facility] [address] [place] [address] 94882- 8364 30 Apr, 2017 [place] [address] 39783- 9753 29 Apr, 2017 Left leg pain M79.605 [place] [address] 21454- 1888 27 Apr, 2017 Post-traumatic stress disorder, unspecified F43.10 ; Problems related to release from group home Z65.2 ; Anxiety F41.9 and BMI 40.0-44.9 , adult Z68.41 [facility] [address] [place] [address] 62825- 4639 22 Apr, 2017 [place] [address] 01900- 5842 19 Apr, 2017 Left leg pain M79.605 [place] [address] 82857- 6617 13 Apr, 2017 Post-traumatic stress disorder, unspecified F43.10 ; Major depressive disorder, recurrent, moderate F33.1 and Problems related to release from group home Z65.2 [facility] [address] [place] [address] 59931- 3935 12 Apr, 2017 [facility] [address] [place] [address] 00041- 9582 12 Apr, 2017 Chronic pain G89.29 ; 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 [id number] [place] [address] 47524 -8192 10 Apr, 2017 Sore throat J02.9 and BMI 40.0-44.9, adult Z68.41 [facility] [address] [place] [address] 12506- 8153 Apr, Left leg pain M79.605 [facility] [id number] [place] [address] [id number] Mar, Dental examination Z01.20 [place] [address] 14824- 2473 23 Mar, [address] [facility] [address] [address] -5833 Mar, Cough R05 ; Viral gastroenteritis A08.4 and BMI 40.0-44.9, adult Z68.41 [facility] [address] [place] [address] 77851- 5893 Mar, Left leg pain M79.605 [place] [facility] [address] 88636- 5227 Mar, Post-traumatic stress disorder, unspecified F43.10 ; Major depressive disorder, recurrent, moderate F33.1 and Problems related to release from group home Z65.2 [place] [address] 41630- 8257 Feb, Left leg pain M79.605 [facility] [id number] [place] [address] 50582- 3493 Feb, [place] [address] 07446- 7835 Feb, BMI 40.0-44.9, adult Z68.41 ; Chronic pain syndrome G89.4 ; Migraine without aura and without status migrainosus, not intractable G43.009 ; Mitral valve prolapse I34.1 and 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 [facility] [address] [place] [address] 15491- 0383 Feb, Post-traumatic stress disorder, chronic F43.12 ; Anxiety F41.9 ; Problems related to release from group home Z65.2 and BMI 40.0-44.9, adult Z68.41 [facility] [address] [place] [address] 22602- 9952 Feb, Post-traumatic stress disorder, unspecified F43.10 ; Major depressive disorder, recurrent, moderate F33.1 and Problems related to release from group home Z65.2 [facility] [address] [place] [address] 32183- 1048 Feb, Left leg pain M79.605 [facility] [address] [place] [address] 13145- 4253 Jan, Post-traumatic stress disorder, unspecified F43.10 ; Major depressive disorder, recurrent, moderate F33.1 and Problems related to release from group home Z65.2 [facility] [address] [place] [address] 30012- 1685 Jan, [facility] [address] [place] [address] 71750- 1073 Jan, [facility] [address] [place] [address] 31595- 1071 Jan, Anxiety F41.9 [facility] [address] [place] [address] 73190- 7123 Jan, Left leg pain M79.605 [facility] [address] [place] [address] 77350- 2046 Dec, Left leg pain M79.605 [facility] [address] [place] [address] 86581- 5056 Dec, [facility] [address] [place] [address] 45115- 9259 Dec, Post-traumatic stress disorder, unspecified F43.10 ; Major depressive disorder, recurrent, moderate F33.1 and Problems related to release from group home Z65.2 [facility] [address] [place] [address] 58013- 5286 Nov, Chronic pain G89.29 and Anxiety F41.9 [facility] [address] [place] [address] 79181- 0017 24 Nov, 2016 Chronic pain G89.29 and Anxiety F41.9 [facility] [facility] [address] [place] [address]- 6924 16 Nov, 2016 Post-traumatic stress disorder, unspecified F43.10 ; Major depressive disorder, recurrent, moderate F33.1 and Problems related to release from group home Z65.2 [facility] [address] 19034- 0782 09 Nov, 2016 Other abnormal findings in specimens from other organs, systems and tissues R89.8 ; Other male erectile dysfunction N52.8 ; Body mass index (BMI) of 40.0-44.9 in adult Z68.41 and Morbid (severe) obesity due to excess calories E66.[address] 03500- 3547 02 Nov, 2016 Post-traumatic stress disorder, unspecified F43.10 ; Major depressive disorder, recurrent, moderate F33.1 and Problems related to release from group home Z65.2 [facility] [address] [id number] Oct, Dental examination Z01.20 [facility] [place] [address] [place] [address] 43923- 7442 Oct, [facility] [address] 29116- 8045 Oct, Encounter for immunization Z23 [place] [id number] [place] [address] 79548- 8552 Oct, Chronic pain G89.29 ; Anxiety F41.9 ; Arrhythmia as indication for cardiac pacemaker replacement I49.9 and Glaucoma H40.9 [place] [address] [place] [address] 40136- 7318 Oct, Anxiety F41.9 ; Post-traumatic stress disorder, chronic F43.12 and Problems related to release from group home Z65.2 [facility] [address] [address]- 1138 07 Oct, 2016 Post-traumatic stress disorder, unspecified F43.10 ; Major depressive disorder, recurrent, moderate F33.1 and Problems related to release from group home Z65.2 [facility] [address] [place] [address] 00212- 2400 Sep, Chronic pain G89.29 and Anxiety F41.9 [facility] [address] [place] [address] 99453- 9186 Sep, Post-traumatic stress disorder, unspecified F43.10 ; Major depressive disorder, recurrent, moderate F33.1 and Problems related to release from group home Z65.2 [facility] [address] [place] [address] 61325- 3223 Sep, Post-traumatic stress disorder, unspecified F43.10 ; Major depressive disorder, recurrent, moderate F33.1 and Problems related to release from group home Z65.2 [facility] [place] [address] [place] [address] 75213- 0263 Sep, Chronic pain G89.29 [facility] [address] [place] [address] 67035- 9084 Aug, Dental caries, unspecified K02.9 [facility] [address] [place] [address] 47632- 2500 Aug, Sleep apnea, obstructive G47.33 ; Obesity E66.9 ; Chronic pain G89.29 ; HTN (hypertension) I10 ; Major depressive disorder, recurrent, moderate F33.1 ; Anxiety F41.9 ; Chronic tension headaches G44.229 ; Mitral valve prolapse I34.1 ; Arrhythmia as indication for cardiac pacemaker replacement I49.9 ; Dental caries, unspecified K02.9 ; Primary insomnia F51.01 and Hyperlipidemia E78.5 [place] [address] [place] [address] 35055- 9335 Aug, Post-traumatic stress disorder, unspecified F43.10 ; Major depressive disorder, recurrent, moderate F33.1 and Problems related to release from group home Z65.2 [facility] [address] [place] [address] 21917- 0693 20 Aug, 2016 Dental examination Z01.20 [facility] [address] [address] 13 Aug, 2016 Dental examination Z01.20 [facility] [address] [place] [address] 81916- 5505 06 Aug, 2016 Post-traumatic stress disorder, unspecified F43.10 ; Major depressive disorder, recurrent, moderate F33.1 and Problems related to release from group home Z65.2 [facility] [address] [place] [address] 95817- 8051 05 Aug, 2016 Chronic pain G89.29 and Primary insomnia F51.01 [facility] [place] [address] [place] [address] 29842- 4446 Jul, [facility] [address] [place] [address] 75957- 6267 Jul, [facility] [address] [place] [address] 11813- 1757 Jul, Nausea R11.0 [facility] [address] [place] [address] 65730- 4115 Jul, Arrhythmia as indication for cardiac pacemaker replacement I49.9 [facility] [address] [place] [address] 78886- 8813 13 Jul, 2016 Post-traumatic stress disorder, unspecified F43.10 ; Major depressive disorder, recurrent, moderate F33.1 and Problems related to release from group home Z65.2 [facility] [address] [place] [address] 71845- 0499 09 Jul, 2016 Anxiety F41.9 [facility] [address] [place] [address] 12303- 0129 08 Jul, 2016 Chronic pain G89.29 [facility] [address] [place] [address] 25732- 5782 Jul, Sleep apnea, obstructive G47.33 ; Hyperlipidemia E78.5 ; Chronic pain G89.29 ; 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 ; Major depressive disorder, recurrent, moderate F33.1 ; Anxiety F41.9 ; Mitral valve prolapse I34.1 ; Arrhythmia as indication for cardiac pacemaker replacement I49.9 ; Primary insomnia F51.01 ; Bilateral headaches R51 and Environmental allergies Z91.09 [facility] [address] [place] [address] 03999- 2375 Jul, Post-traumatic stress disorder, unspecified F43.10 ; Major depressive disorder, recurrent, moderate F33.1 and Problems related to release from group home Z65.2 [facility] [address] [place] [address] 84461- 3323 June, Post-traumatic stress disorder, chronic F43.12 ; Anxiety F41.9 ; Problems related to release from group home Z65.2 ; Sleep apnea, obstructive G47.33 and Primary insomnia F51.01 [facility] [address] [place] [address] 68066- 8669 June, [facility] [address] [place] [address] 26531- 7752 June, [facility] [address] [place] [address] 39805- 6075 June, [facility] [address] [place] [address] 23458- 5465 June, Chronic pain G89.29 [facility] [place] [address] [place] [address] 15631- 2648 June, Chronic pain G89.29 [facility] [place] [id number] [place] [address] [id number]- [address]149 June, Lipoma of left lower extremity D17.24 ; Open wound T14.8 and Swelling of left lower extremity M79.89 [place] [id number] [place] [address] [id number] June, Post-traumatic stress disorder, unspecified F43.10 ; Major depressive disorder, recurrent, moderate F33.1 and Problems related to release from group home Z65.2 [place] [address] [place] [id number] [place] [address] [id number] May, Lipoma of left lower extremity D17.24 ; Major depressive disorder, recurrent, moderate F33.1 ; Sleep apnea, obstructive G47.33 ; Hyperlipidemia E78.5 ; Obesity E66.9 ; HTN (hypertension) I10 ; Glaucoma H40.9 ; CAD (coronary artery disease) I25.10 ; Chronic tension headaches G44.229 ; Chronic pain G89.29 ; Anxiety F41.9 ; Nausea R11.0 and Primary insomnia F51.01 [place] [address] [place] [id number] [place] [address] 84561- 0958 May, [place] [address] [place] [id number] [place] [address] 62183- 6864 May, Chronic pain G89.29 [place] [address] 76598- 5752 May, [place] [address] [id number] [place] [address] 70667- 4619 Apr, Post-traumatic stress disorder, unspecified F43.10 ; Major depressive disorder, recurrent, moderate F33.1 and Problems related to release from group home Z65.2 [place] [id number] [place] [address] 75443- 3109 Apr, Primary insomnia F51.01 ; Post-traumatic stress disorder, chronic F43.12 and Problems related to release from group home Z65.2 [place] [id number] [place] [address] 67559- 7121 Apr, Post-traumatic stress disorder, unspecified F43.10 ; Major depressive disorder, recurrent, moderate F33.1 and Problems related to release from group home Z65.2 [place] [id number] [place] [address] 60889- 6610 16 Apr, 2016 [place] [address] 27935- 1883 16 Apr, 2016 Sleep apnea, obstructive G47.33 ; Chronic pain G89.29 ; HTN (hypertension) I10 ; Mitral valve prolapse I34.1 ; Shoulder pain, left M25.512 ; Arrhythmia as indication for cardiac pacemaker replacement I49.9 ; Glaucoma H40.9 ; Bilateral headaches R51 ; Environmental allergies Z91.09 ; Primary insomnia F51.01 and Nausea R11.0 [place] [address] [place] [id number] [place] [address] 65335- 1595 15 Apr, 2016 [place] [address] 83132- 5361 15 Apr, 2016 [place] [address] 96239- 3250 Apr, Post-traumatic stress disorder, unspecified F43.10 ; Major depressive disorder, recurrent, moderate F33.1 and Problems related to release from group home Z65.2 [place] [address] [place] [id number] [place] [address] 92442- 2280 07 Apr, 2016 HTN (hypertension) I10 [place] [id number] [place] [address] 12154- 1718 07 Apr, 2016 HTN (hypertension) I10 [place] [address] [place] [id number] [place] [address] 78824- 5661 14 Mar, 2016 Chronic pain G89.29 ; Primary insomnia F51.01 and Problems related to release from group home Z65.2 [place] [address] [id number] [place] [address] 71801- 7427 07 Mar, 2016 Post-traumatic stress disorder, unspecified F43.10 ; Major depressive disorder, recurrent, moderate F33.1 and Problems related to release from group home Z65.2 [place] [address] [place] [id number] [place] [address] 71831- 7427 Feb, Post-traumatic stress disorder, unspecified F43.10 ; Major depressive disorder, recurrent, moderate F33.1 and Problems related to release from group home Z65.2 [facility] [id number] [place] [address] 16626- 9775 Feb, Chronic tension headaches G44.229 [facility] [id number] [place] [address] 25251- 8923 Feb, Sleep apnea, obstructive G47.33 ; Obesity E66.9 ; Hyperlipidemia E78.5 ; Glaucoma H40.9 ; Chronic pain G89.29 ; HTN (hypertension ) I10 ; 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 ; 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 ; Chronic tension headaches G44.229 ; Cough R05 ; CAD (coronary artery disease) I25.10 ; Problems related to release from group home Z65.2 ; Arrhythmia as indication for cardiac pacemaker replacement I49.9 and Primary insomnia F51.[address] 57878- 7790 Feb, Post-traumatic stress disorder, unspecified F43.10 and Chronic pain G89.[address] 84451- 3302 Feb, [facility] [id number] [place] [address] [id number] Feb, Dental caries K02.[address] 24720- 8412 Feb, [place] [id number] [place] [address] 86438- 7515 Feb, Post-traumatic stress disorder, unspecified F43.10 ; Major depressive disorder, recurrent, moderate F33.1 and Problems related to release from group home Z65.2 [place] [address] [id number] [place] [address] 96575- 8868 Jan, Sleep apnea, obstructive G47.33 and Chronic pain G89.29 [address] [address]- 6299 Jan, [place] [id number] [place] [address] 63318- 3179 14 Jan, 2016 Dental examination Z01.20 [place] [id number] [place] [address] 16875- 4424 09 Jan, 2016 [place] [id number] [place] [address] 19825- 5497 Jan, [place] [address] [id number] [place] [address] 78170- 6720 29 Dec, 2015 Post-traumatic stress disorder, unspecified F43.10 ; Major depressive disorder, recurrent, moderate F33.1 and Problems related to release from group home Z65.2 [place] [id number] [place] [address] 09054- 2588 Dec, Encounter for immunization Z23 ; Problems related to release from group home Z65.2 ; Sleep apnea, obstructive G47.33 and Post-traumatic stress disorder, chronic F43.12 [place] [address] [place] [id number] [place] [address] 72471- 8621 18 Dec, 2015 Sleep apnea, obstructive G47.33 ; Hyperlipidemia E78.5 ; Chronic pain G89.29 ; Glaucoma H40.9 ; HTN (hypertension) I10 ; Post-traumatic stress disorder, unspecified F43.10 ; Anxiety F41.9 ; Chronic tension headaches G44.229 ; Mitral valve prolapse I34.1 and CAD (coronary artery disease) I25.10 [place] [address] [address]- 4172 15 Dec, 2015 Post-traumatic stress disorder, unspecified F43.10 ; Major depressive disorder, recurrent, moderate F33.1 and Problems related to release from group home Z65.2 [place] [address] [address]- 2250 Nov, Chronic pain G89.29 [place] [address] [place] [id number] [place] [address] 94097- 3112 Nov, Post-traumatic stress disorder, unspecified F43.10 ; Major depressive disorder, recurrent, moderate F33.1 and Problems related to release from group home Z65.2 [facility] [id number] [place] [address] 80819- 5862 Oct, [facility] [address] [address]- 3459 Oct, [facility] [id number] [place] [address] 42251- 7421 16 Oct, 2015 Post-traumatic stress disorder, unspecified F43.10 ; Major depressive disorder, recurrent, moderate F33.1 and Problems related to release from group home Z65.2 [place] [id number] [place] [address] 41635- 6472 08 Oct, 2015 [place] [id number] [place] [address] 40883- 4809 07 Oct, 2015 Environmental allergies Z91.09 ; Cough R05 and 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 [place] [address] [place] [id number] [place] [address] 40563- 0795 Sep, [place] [address] [place] [address] [id number] [place] [address] 56174- 5340 Sep, Post-traumatic stress disorder, unspecified F43.10 ; Major depressive disorder, recurrent, moderate F33.1 and Problems related to release from group home Z65.2 [place] [id number] [place] [address] 40626- 2646 Sep, Chronic pain G89.29 [place] [address] [place] [id number] [place] [address] 57381- 9312 Sep, Pain in left shoulder M25.512 ; Pain in right shoulder M25.511 and Other chronic pain G89.29 [facility] [address] [address]- 5536 Sep, [place] [address] [address]- 8566 Sep, [facility] [address] [address]- 1603 Sep, [facility] [id number] [place] [address] [id number] Aug, Dental examination Z01.20 [facility] [id number] [place] [address] 44567- 6253 Aug, Post-traumatic stress disorder, unspecified F43.10 ; Open- angle glaucoma of both 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 and Problems related to release from group home Z65.2 [facility] [id number] [place] [address] 77969- 1740 Aug, [facility] [id number] [place] [address] 86186- 0589 Aug, Sleep apnea, obstructive G47.33 ; Obesity E66.9 ; Hyperlipidemia E78.5 ; Bilateral headaches R51 ; HTN (hypertension) I10 ; Post- traumatic stress disorder, unspecified F43.10 ; Anxiety F41.9 ; Neuropathy G62.9 ; Glaucoma H40.9 and Chronic pain G89.29 [facility] [id number] [place] [address] [id number] Aug, Encounter for dental examination Z01.20 [facility] [address], [place] [address]- 0905 Aug, Post-traumatic stress disorder, unspecified F43.10 ; Major depressive disorder, recurrent, moderate F33.1 and Problems related to release from group home Z65.2 [facility] [address] [address]- 4821 Aug, [facility] [id number] [place] [address] 42582- 8112 Jul, [facility] [address] [address]- 5328 Jul, Post-traumatic stress disorder, unspecified F43.10 and Major depressive disorder, recurrent, moderate F33.1 [facility] [id number] [address]- 3070 Jul, [facility] [id number] [address]- 8692 Jul, [facility] [address], [place] [address]- 9346 Jul, Chronic pain G89.29 [facility] [id number] [place] [address] 77528- 6779 June, Post-traumatic stress disorder, unspecified F43.10 and Major depressive disorder, recurrent, moderate F33.1 [facility] [address] [address]- 1614 June, [facility] [id number] [place] [address] 38630- 6914 June, Chronic pain G89.29 [facility] [id number] [place] [address] 92684- 7054 June, Post-traumatic stress disorder, unspecified F43.10 and Major depressive disorder, recurrent, moderate F33.1 [facility] [address] [address]- 1026 May, Post-traumatic stress disorder, unspecified F43.10 and Major depressive disorder, recurrent, moderate F33.1 [facility] [address] [address]- 0463 May, [facility] [id number] [address]- 7948 May, [facility] [address] [address]- 1829 May, [facility] [id number] [address]- 6096 Apr, [facility] [id number] [place] [address] 06624- 9732 Apr, Post-traumatic stress disorder, unspecified F43.10 and Sleep apnea, obstructive G47.33 [place] [address] [id number] [place] [address] 79391- 1714 Apr, [place] [address] [place] [id number] [place] [address] 96195- 8868 Apr, Shoulder pain, left M25.512 [place] [address] [place] [id number] [place] [address] 15082- 3674 18 Apr, 2015 Post-traumatic stress disorder, unspecified F43.10 and Major depressive disorder, recurrent, moderate F33.1 [place] [address] [place] [id number] [place] [address] 92481- 8058 17 Apr, 2015 [place] [address] [id number] [place] [address] 31840- 1133 Apr, [place] [address] [place] [address] [place] [address] 17295- 9046 08 Apr, 2015 [facility] [id number] [place] [address] 84354- 0644 07 Apr, 2015 Left shoulder pain M25.512 [place] [id number] [place] [address] 59761- 8250 Mar, [place] [address] [place] [address] [address] [place] [address] 26515- 8337 Mar, [facility] [id number] [place] [address] 92581- 0245 Mar, [place] [address] [place] [address] 97067- 1641 12 Mar, 2015 Sleep apnea, obstructive G47.33 ; Obesity E66.9 ; Chronic pain G89.29 ; Hyperlipidemia E78.5 ; HTN (hypertension) I10 ; 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 ; Major depressive disorder, recurrent, moderate F33.1 and Anxiety F41.9 [place] [id number] [place] [address] 30455- 9127 Mar, [place] [address] 594091- 3500 Mar, Post-traumatic stress disorder, unspecified F43.10 and Major depressive disorder, recurrent, moderate F33.1 [place] [id number] [place] [address] 07272- 6550 08 Mar, 2015 [place] [id number] [place] [address] 06090- 7530 04 Mar, 2015 HTN (hypertension) I10 ; 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 ; Obesity E66.9 ; Hyperlipidemia E78.5 ; Glaucoma H40.9 ; Chronic pain G89.29 and CAD (coronary artery disease) I25.10 [place] [id number] [place] [address] 36094- 3595 Feb, [place] [address] [place] [address] 79382- 6575 Feb, Post-traumatic stress disorder, unspecified F43.10 ; Obesity E66.9 ; Sleep apnea, obstructive G47.33 and 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 [place] [id number] [place] [address] 34362- 1935 Feb, Post-traumatic stress disorder, unspecified F43.10 and Major depressive disorder, recurrent, moderate F33.1 [place] [id number] [place] [address] 10075- 5274 Feb, [place] [id number] [place] [address] 33683- 1833 Feb, [place] [id number] [place] [address] 00253- 5977 Feb, HTN (hypertension) I10 ; Post-traumatic stress disorder, unspecified F43.10 ; 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 ; Obesity E66.9 ; Hyperlipidemia E78.5 ; Chronic pain G89.29 ; Glaucoma H40.9 ; Mitral valve prolapse I34.1 and Bilateral headaches R51 [place] [id number] [place] [address] 59916- 4351 Feb, [place] [id number] [place] [address] 84547- 4395 Feb, Post-traumatic stress disorder, unspecified F43.10 and Major depressive disorder, recurrent, moderate F33.1 [place] [address] 27035- 1478 Feb, [place] [address] 90635- 6302 Feb, [place] [address] 72913- 3770 Jan, [address] 38885- 7790 Jan, [place] [id number] [place] [address] 78899- 7963 Jan, Obesity E66.9 ; HTN (hypertension) I10 ; 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 ; Major depressive disorder, recurrent, moderate F33.1 ; Glaucoma H40.9 ; Hyperlipidemia E78.5 ; Sleep apnea, obstructive G47.33 ; Chronic pain G89.29 ; Anxiety F41.9 ; Chronic tension headaches G44.229 and Cough R05 [place] [id number] [place] [address] 70005- 4522 Jan, [place] [id number] [place] [address] 05501- 7337 Jan, [address] 65811- 2860 Jan, Post-traumatic stress disorder, unspecified F43.10 ; Obesity E66.9 ; Sleep apnea, obstructive G47.33 and 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 [address] [place] [address]- 9305 Jan, [place] [address] 90674- 9874 Jan, Post-traumatic stress disorder, unspecified F43.10 and Major depressive disorder, recurrent, moderate F33.1 [place] [address] 59097- 6933 Dec, [place] [address] 375700- 6752 Dec, Sleep apnea, obstructive G47.33 ; Obesity E66.9 ; Hyperlipidemia E78.5 ; Glaucoma H40.9 ; Chronic pain G89.29 ; HTN (hypertension ) I10 ; 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 ; Anxiety F41.9 and CAD (coronary artery disease) I25.[address] 69792- 6513 Nov, [place] [address] 90300- 1055 Nov, [address] 57190- 7162 Nov, [place] [address] 17193- 9738 Nov, [place] [id number] [place] [address] 40739- 6732 Nov, [address] 38484- 2554 Nov, Encounter for immunization Z23 ; Sleep apnea, obstructive G47.33 ; Obesity E66.9 ; Hyperlipidemia E78.5 ; Glaucoma H40.9 ; Chronic pain G89.29 ; Anxiety F41.9 ; Chronic tension headaches G44.229 and HTN (hypertension ) I10 [place] [address] 21359- 3363 Nov, [address] [place] [address]- 2193 14 Nov, 2014 [facility] [id number] [place] [address] 07540- 9333 06 Nov, 2014 Dizziness R42 [facility] [id number] [place] [address] 61503- 9724 Nov, [facility] [address] [place] [address] 77553- 5502 29 Oct, 2014 [facility] [id number] [place] [address] 37503- 9972 Oct, [facility] [id number] [place] [address] 73326- 7117 Oct, [facility] [id number] [place] [address] 95958- 3469 Oct, [facility] [address] [place] [address] 62122- 5414 Oct, Dizziness 780.4 ; Essential hypertension 401.9 ; Obesity 278.00 ; Hyperlipidemia 272.4 ; Chronic pain 338.29 ; Glaucoma 365.9 and Anxiety 300.00 [facility] [address] [place] [address] 53326- 5016 02 Oct, 2014 Essential hypertension 401.9 ; Hyperlipidemia 272.4 ; Glaucoma 365.9 ; Obesity 278.00 ; Chronic pain 338.29 and Allergy to insects V15.06 [facility] [address] [address]- 5833 Sep, [facility] [id number] [place] [address] 28803- 6883 Sep, [facility] [id number] [place] [address] 21907- 2153 Sep, [facility] [id number] [place] [address] 32961- 5596 Sep, [facility] [id number] [place] [address] 09525- 5030 Aug, Essential hypertension 401.9 ; Obesity 278.00 ; Hyperlipidemia 272.4 ; Glaucoma 365.9 ; Lipoma 214.9 ; Mitral valve prolapse 424.0 ; Angina at rest 413.9 ; Lymphedema 457.1 and Chronic pain 338.29 IMMUNIZATIONS No Known Immunizations SOCIAL HISTORY Never Assessed REASON FOR VISIT Controlled Med Refill PLAN OF CARE VITAL SIGNS MEDICATIONS Medication Instructions Dosage Frequency Start Date End Date Duration Status Hydrocodone-Acetaminophen 7.5-325 MG Orally 4 times a day 1 tablet 6h Dec, Active RESULTS No Results PROCEDURES No Known [...]
--- OUTSIDE RECORDS SUMMARY | 2018-02-04 13:56 | XMS REPORT ---
Author Author KODAK GAVIN [facility] Address [address] [place] [address] Care Team Providers [facility] Assistant Name Role Phone KODAK GAVIN Unavailable PROBLEMS Type Condition ICD9-CM Code [id number] Code Onset Dates Condition Status SNOMED Code Problem Hyperlipidemia E78.5 Active 42171273 Problem Sleep apnea, obstructive G47.33 Active 24870692 Problem Primary insomnia F51.01 Active 3461453 Problem Chronic pain G89.29 Active 21472504 Problem Morbid (severe) obesity due to excess calories E66.01 Active 361435641 Problem Myocarditis, unspecified chronicity, 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 Active 63561925 Problem Other male erectile dysfunction N52.8 Active 656980031 Problem 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 Active 963463403 Problem Body mass index (BMI) of 40.0-44.9 in adult Z68.41 Active 197210217 Problem Supraventricular tachycardia I47.1 Active 9010483 Problem Insomnia disorder with non-sleep disorder mental comorbidity G47.00 Active 80595691 Problem Chronic tension headaches G44.229 Active 165484783 Problem HTN (hypertension) I10 Active 55342485 Problem 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 Active 710661321 Problem Chronic pain syndrome G89.4 Active 804916309 Problem Migraine without aura and without status migrainosus, not intractable G43.009 Active 429279627 Problem Sarcoidosis D86.9 Active 42606080 Problem Problems related to release from penitentiary Z65.2 Active 756827449929862 Problem 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 Active 47703769 Problem Mitral valve prolapse I34.1 Active 220625838 Problem Anxiety F41.9 Active 58781242 Problem Major depressive disorder, recurrent, moderate F33.1 Active 18198448 Problem Environmental allergies Z91.09 Active 582633495 Problem Arrhythmia as indication for cardiac pacemaker replacement I49.9 Active 15731268 Problem CAD (coronary artery disease) I25.10 Active 83706154 Problem Post-traumatic stress disorder, chronic F43.12 Active 968087128 ALLERGIES Substance Reaction Event Type Date Status Elavil Unknown Drug Allergy Dec, Active Xalatan upper lid irritation Drug Allergy Dec, Active Penicillin G Potassium rash Drug Allergy Dec, Active Lisinopril cough Drug Allergy Dec, Active Cymbalta effects like aspirin Drug Allergy Dec, Active Aspirin nausea and vomiting Drug Allergy Dec, Active bandaides blisters Non Drug Allergy Dec, Active Wasp venom anaphylaxis Non Drug Allergy Dec, Active ENCOUNTERS Encounter Location Date Diagnosis [facility] [address] [address] Jan, [place] [address] [address]66 Jan, [place] [address] 39[address]- 1204 Dec, Encounter for long-term (current) use of other medications Z79.899 [facility] [address] [address]- [address] Dec, [facility] [address] [address] Dec, Tooth pain K08.89 ; Active dental caries K02.9 and BMI 40.0 -44.9, adult Z68.41 [facility] [address] [place] [id number] [place] [address] 61022 -5394 15 Dec, 2017 Acute bronchitis J20.9 and BMI 40.0-44.9, adult Z68.41 [facility] [address] [place] [id number] [place] [address] 06865- 0940 Dec, [facility] [address] 95240- 1052 Dec, [facility] [address] [place] [id number] [place] [address] 60246- 9551 Dec, [facility] [address] [address] Dec, [facility] [address] [place] [id number] [place] [address] 16738- 8716 Nov, [facility] [address] [place] [id number] [place] [address] 94704- 9073 Nov, Left leg pain M79.[address] [id number] [id number] Nov, [facility] [address] [place] [id number] [place] [address] 66099- 1999 Nov, Encounter for long-term (current) use of other medications Z79.899 [place] [address] [place] [id number] [place] [address] 45477- 3211 Nov, [place] [address] [place] [id number] [place] [address] 45287- 4432 Nov, Left leg pain M79.605 [facility] [address] [id number] [place] [address] [id number] Oct, Dental examination Z01.20 [place] [address] [place] [id number] [place] [address] 73193- 7318 Oct, Insomnia disorder with non-sleep disorder mental comorbidity G47.00 [place] [address] [place] [id number] [place] [address] 00766- 4242 Oct, Post-traumatic stress disorder, chronic F43.12 ; Insomnia disorder with non-sleep disorder mental comorbidity G47.00 and BMI 40.0-44.9, adult Z68.41 [facility] [address] [place] [id number] [place] [address] 42053- 9800 Oct, [facility] [id number] [place] [address] 94423 -5120 Oct, Insect bite (nonvenomous), left lower leg, initial encounter S80.862A ; Bitten or stung by nonvenomous insect and other nonvenomous arthropods, initial encounter W57.XXXA and BMI 40.0-44.9, adult Z68.41 [place] [address] 18997- 6900 06 Oct, 2017 Left leg pain M79.605 [place] [address] 60899- 4910 04 Oct, 2017 Post-traumatic stress disorder, unspecified F43.10 ; Major depressive disorder, recurrent, moderate F33.1 and Problems related to release from penitentiary Z65.2 [place] [address] 61914- 2082 2017 Arrhythmia as indication for cardiac pacemaker replacement I49.9 [place] [address] 27601- 7825 22 Sep, 2017 [place] [address] 29559- 2281 20 Sep, 2017 HTN (hypertension) I10 [place] [address] 98654- 8321 17 Sep, 2017 [place] [address] 19526- 4310 16 Sep, 2017 Body mass index (BMI) of 40.0-44.9 in adult Z68.41 ; Chronic pain G89.29 and Supraventricular tachycardia I47.1 [place] [address] 65392- 7763 15 Sep, 2017 [place] [address] 52531- 2793 Sep, Sarcoidosis D86.9 [place] [address] 67984- 3240 Sep, Sarcoidosis D86.9 [place] [address] 27819- 6166 Sep, [place] [address] [place] [address]- 0787 Sep, [facility] [address] [address] 8274 Sep, [facility] [address] [address] 1393 Sep, [facility] [id number] [place] [address] 99213- 3047 Sep, Left leg pain M79.605 [facility] [address] [address]- 3409 Sep, HTN (hypertension) I10 [facility] [address] [place] [id number] [place] [address] 90577- 7123 Sep, [facility] [id number] [place] [address] 68096- 9427 Sep, Post-traumatic stress disorder, unspecified F43.10 ; Major depressive disorder, recurrent, moderate F33.1 and Problems related to release from penitentiary Z65.2 [facility] [address] [address]- 4707 Sep, [facility] [id number] [place] [address] 46435- 2757 Aug, [facility] [address] [address] 2633 Aug, Sarcoidosis D86.9 [facility] [id number] [place] [address] 25478- 6410 Aug, Sarcoidosis D86.9 [facility] [address] [address]- 3794 Aug, HTN (hypertension) I10 [facility] [address], [place] [address] 5[address] Aug, Post-traumatic stress disorder, unspecified F43.10 ; Major depressive disorder, recurrent, moderate F33.1 and Problems related to release from penitentiary Z65.2 [facility] [id number] [place] [address] 84265- 2988 11 Aug, 2017 [facility] [address] [place] [id number] [place] [address] 19660- 2926 09 Aug, 2017 Left leg pain M79.605 [place] [address] [place] [id number] [place] [address] 62626- 5996 Jul, Post-traumatic stress disorder, chronic F43.12 ; Anxiety F41.9 ; Problems related to release from penitentiary Z65.2 and BMI 40.0-44.9, adult Z68.41 [place] [address] 43122- 0660 20 Jul, 2017 HTN (hypertension) I10 ; Body mass index (BMI) of 40.0-44.9 in adult Z68.41 ; Acute swimmer''s ear of both sides H60.333 and Chronic pain G89.29 [place] [address] [place] [id number] [place] [address] 43436- 1839 19 Jul, 2017 Glaucoma H40.9 [place] [address] [place] [id number] [place] [address] 81068- 5684 14 Jul, 2017 [place] [address] [place] [id number] [place] [address] 98105- 3984 13 Jul, 2017 Sarcoidosis D86.9 [place] [address] [place] [id number] [place] [address] 60699- 2075 12 Jul, 2017 Left leg pain M79.605 [place] [id number] [place] [address] 92138- 1525 12 Jul, 2017 Sarcoidosis D86.9 [place] [address] [place] [id number] [place] [address] 64592- 4909 Jul, Post-traumatic stress disorder, unspecified F43.10 ; Major depressive disorder, recurrent, moderate F33.1 and Problems related to release from penitentiary Z65.2 [place] [address] [place] [id number] [place] [address] 56809- 2207 June, [facility] [address] [address] June, Sore throat J02.9 and BMI 40.0-44.9, adult Z68.41 [facility] [address] [address]- 3174 June, [facility] [address] [place] [id number] [place] [address] 41361- 5700 June, [facility] [address] [place] [id number] [place] [address] 32089- 6606 June, [facility] [address] [place] [id number] [place] [address] 07524- 3424 June, Left leg pain M79.605 [facility] [address] [place] [id number] [place] [address] 43077- 9041 June, Sarcoidosis D86.9 [facility] [address] [place] [id number] [place] [address] 71971- 8806 June, [facility] [address] [place] [id number] [place] [address] 45344- 7136 June, [facility] [address] [place] [address] [address]- 4344 June, Left leg pain M79.605 [facility] [address] [place] [id number] [place] [address] 87845- 2011 May, [facility] [address], [place] [address]- 1196 May, [facility] [address] [place] [id number] [place] [address] 66285- 7029 May, [facility] [address], [place] [address]- 4023 May, Left leg pain M79.605 [facility] [address] [place] [id number] [place] [address] 72541- 3630 May, Post-traumatic stress disorder, unspecified F43.10 ; Major depressive disorder, recurrent, moderate F33.1 and Problems related to release from penitentiary Z65.2 [place] [address] [place] [id number] [place] [address] 97611- 4978 May, Chronic pain G89.29 ; Anxiety F41.9 ; Chest pain, unspecified type R07.9 and BMI 40.0-44.9, adult Z68.41 [place] [address] [place] [id number] [place] [address] 27255- 5044 30 Apr, 2017 [place] [address] [place] [id number] [place] [address] 07038- 7042 29 Apr, 2017 Left leg pain M79.605 [place] [address] [place] [id number] [place] [address] 49815- 0165 Apr, Post-traumatic stress disorder, unspecified F43.10 ; Problems related to release from penitentiary Z65.2 ; Anxiety F41.9 and BMI 40.0-44.9 , adult Z68.41 [place] [address] [place] [id number] [place] [address] 21000- 5942 Apr, [place] [address] [place] [id number] [place] [address] 27967- 1434 Apr, Left leg pain M79.605 [place] [address] [place] [id number] [place] [address] 55179- 3504 Apr, Post-traumatic stress disorder, unspecified F43.10 ; Major depressive disorder, recurrent, moderate F33.1 and Problems related to release from penitentiary Z65.2 [place] [address] [place] [id number] [place] [address] 23535- 1357 Apr, [place] [address] [place] [id number] [place] [address] 96110- 7324 Apr, Chronic pain G89.29 ; 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 ; Morbid (severe) obesity due to excess calories E66.01 ; Anxiety F41.9 and BMI 40.0-44.9, adult Z68.41 [facility] [address] [place] [id number] [place] [address] 39860 -7887 Apr, Sore throat J02.9 and BMI 40.0-44.9, adult Z68.41 [place] [address] 46639- 9919 02 Apr, 2017 Left leg pain M79.605 [facility] [address] [id number] Mar, Dental examination Z01.20 [place] [address] 17265- 2385 Mar, [facility] [address] 53611 -0512 Mar, Cough R05 ; Viral gastroenteritis A08.4 and BMI 40.0-44.9, adult Z68.41 [place] [address] 79647- 7230 Mar, Left leg pain M79.605 [place] [address] 57683- 5371 06 Mar, 2017 Post-traumatic stress disorder, unspecified F43.10 ; Major depressive disorder, recurrent, moderate F33.1 and Problems related to release from penitentiary Z65.2 [place] [address] [place] [id number] [place] [address] 36506- 7663 Feb, Left leg pain M79.605 [place] [address] 55289- 6579 Feb, [place] [address] 09101- 2238 Feb, BMI 40.0-44.9, adult Z68.41 ; Chronic pain syndrome G89.4 ; Migraine without aura and without status migrainosus, not intractable G43.009 ; Mitral valve prolapse I34.1 and 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 [facility] [address] [place] [id number] [place] [address] 94944- 4149 Feb, Post-traumatic stress disorder, chronic F43.12 ; Anxiety F41.9 ; Problems related to release from penitentiary Z65.2 and BMI 40.0-44.9, adult Z68.41 [facility] [address] [place] [id number] [place] [address] 91054- 7826 Feb, Post-traumatic stress disorder, unspecified F43.10 ; Major depressive disorder, recurrent, moderate F33.1 and Problems related to release from penitentiary Z65.2 [facility] [address] [place] [id number] [place] [address] 86711- 6426 Feb, Left leg pain M79.605 [facility] [address] [place] [id number] [place] [address] 63710- 4029 Jan, Post-traumatic stress disorder, unspecified F43.10 ; Major depressive disorder, recurrent, moderate F33.1 and Problems related to release from penitentiary Z65.2 [facility] [address] [place] [id number] [place] [address] 70214- 3285 Jan, [facility] [address] [place] [id number] [place] [address] 94257- 3409 Jan, [facility] [address] [place] [id number] [place] [address] 60424- 3638 Jan, Anxiety F41.9 [facility] [address] [place] [id number] [place] [address] 97170- 5963 Jan, Left leg pain M79.605 [facility] [address] [place] [id number] [place] [address] 53167- 4096 Dec, Left leg pain M79.605 [facility] [address] [place] [id number] [place] [address] 05135- 1156 Dec, [facility] [address] [place] [id number] [place] [address] 60866- 3169 Dec, Post-traumatic stress disorder, unspecified F43.10 ; Major depressive disorder, recurrent, moderate F33.1 and Problems related to release from penitentiary Z65.2 [place] [address] [place] [id number] [place] [address] 02864- 8590 31 Nov, 2016 Chronic pain G89.29 and Anxiety F41.9 [place] [address] [place] [id number] [place] [address] 33231- 5103 Nov, Chronic pain G89.29 and Anxiety F41.9 [place] [address] [place] [id number] [place] [address] 52276- 8807 16 Nov, 2016 Post-traumatic stress disorder, unspecified F43.10 ; Major depressive disorder, recurrent, moderate F33.1 and Problems related to release from penitentiary Z65.2 [place] [address] [place] [id number] [place] [address] 51012- 7226 09 Nov, 2016 Other abnormal findings in specimens from other organs, systems and tissues R89.8 ; Other male erectile dysfunction N52.8 ; Body mass index (BMI) of 40.0-44.9 in adult Z68.41 and Morbid (severe) obesity due to excess calories E66.01 [place] [address] [place] [id number] [place] [address] 15073- 4101 02 Nov, 2016 Post-traumatic stress disorder, unspecified F43.10 ; Major depressive disorder, recurrent, moderate F33.1 and Problems related to release from penitentiary Z65.2 [facility] [id number] [place] [address] [id number] Oct, Dental examination Z01.20 [facility] [id number] [place] [address] 23733- 5713 Oct, [place] [address] [place] [id number] [place] [address] 10042- 6715 Oct, Encounter for immunization Z23 [facility] [address] [id number] [place] [address] 48984- 2594 Oct, Chronic pain G89.29 ; Anxiety F41.9 ; Arrhythmia as indication for cardiac pacemaker replacement I49.9 and Glaucoma H40.9 [place] [id number] [place] [address] 68473- 5557 Oct, Anxiety F41.9 ; Post-traumatic stress disorder, chronic F43.12 and Problems related to release from penitentiary Z65.2 [place] [address] [place] [id number] [place] [address] 67447- 1174 Oct, Post-traumatic stress disorder, unspecified F43.10 ; Major depressive disorder, recurrent, moderate F33.1 and Problems related to release from penitentiary Z65.2 [place] [address] [place] [id number] [place] [address] 36419- 2327 Sep, Chronic pain G89.29 and Anxiety F41.9 [place] [address] [place] [id number] [place] [address] 47371- 0848 Sep, Post-traumatic stress disorder, unspecified F43.10 ; Major depressive disorder, recurrent, moderate F33.1 and Problems related to release from penitentiary Z65.2 [place] [address] [place] [id number] [place] [address] 04060- 3376 Sep, Post-traumatic stress disorder, unspecified F43.10 ; Major depressive disorder, recurrent, moderate F33.1 and Problems related to release from penitentiary Z65.2 [place] [address] [place] [id number] [place] [address] 05280- 7198 Sep, Chronic pain G89.29 [place] [address] [place] [id number] [place] [address] 30390- 7668 Aug, Dental caries, unspecified K02.9 [place] [address] [place] [address] [id number] [place] [address] 34192- 3903 Aug, Sleep apnea, obstructive G47.33 ; Obesity E66.9 ; Chronic pain G89.29 ; HTN (hypertension) I10 ; Major depressive disorder, recurrent, moderate F33.1 ; Anxiety F41.9 ; Chronic tension headaches G44.229 ; Mitral valve prolapse I34.1 ; Arrhythmia as indication for cardiac pacemaker replacement I49.9 ; Dental caries, unspecified K02.9 ; Primary insomnia F51.01 and Hyperlipidemia E78.5 [facility] [address] [address] [id number] [place] [address] 83707- 4628 Aug, Post-traumatic stress disorder, unspecified F43.10 ; Major depressive disorder, recurrent, moderate F33.1 and Problems related to release from penitentiary Z65.2 [facility] [id number] [place] [address] 82586- 6888 Aug, Dental examination Z01.20 [facility] [id number] [place] [address] [id number] Aug, Dental examination Z01.20 [facility] [address] [id number] [place] [address] 68853- 2646 Aug, Post-traumatic stress disorder, unspecified F43.10 ; Major depressive disorder, recurrent, moderate F33.1 and Problems related to release from penitentiary Z65.2 [place] [address] [address] [id number] [place] [address] 86296- 3789 Aug, Chronic pain G89.29 and Primary insomnia F51.01 [place] [address] [id number] [place] [address] 69928- 5455 Jul, [place] [id number] [place] [address] 22867- 0737 Jul, [place] [id number] [place] [address] 40063- 4634 Jul, Nausea R11.0 [place] [id number] [place] [address] 73620- 4435 Jul, Arrhythmia as indication for cardiac pacemaker replacement I49.9 [facility] [id number] [place] [address] 01719- 4540 Jul, Post-traumatic stress disorder, unspecified F43.10 ; Major depressive disorder, recurrent, moderate F33.1 and Problems related to release from penitentiary Z65.2 [facility] [id number] [place] [address] 01553- 9223 09 Jul, 2016 Anxiety F41.9 [place] [id number] [place] [address] 01305- 6506 08 Jul, 2016 Chronic pain G89.29 [place] [id number] [place] [address] 01879- 6688 Jul, Sleep apnea, obstructive G47.33 ; Hyperlipidemia E78.5 ; Chronic pain G89.29 ; 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 ; Major depressive disorder, recurrent, moderate F33.1 ; Anxiety F41.9 ; Mitral valve prolapse I34.1 ; Arrhythmia as indication for cardiac pacemaker replacement I49.9 ; Primary insomnia F51.01 ; Bilateral headaches R51 and Environmental allergies Z91.09 [place] [id number] [place] [address] 28875- 9397 Jul, Post-traumatic stress disorder, unspecified F43.10 ; Major depressive disorder, recurrent, moderate F33.1 and Problems related to release from penitentiary Z65.2 [place] [id number] [place] [address] 39326- 8842 June, Post-traumatic stress disorder, chronic F43.12 ; Anxiety F41.9 ; Problems related to release from penitentiary Z65.2 ; Sleep apnea, obstructive G47.33 and Primary insomnia F51.01 [place] [id number] [place] [address] 12246- 8356 June, [place] [id number] [place] [address] 04154- 3464 June, [place] [id number] [place] [address] 29058- 1882 June, [place] [id number] [place] [address] 66464- 5891 June, Chronic pain G89.29 [place] [id number] [place] [address] 12674- 1912 June, Chronic pain G89.29 [place] [id number] [place] [address] 63915- 4242 June, Lipoma of left lower extremity D17.24 ; Open wound T14.8 and Swelling of left lower extremity M79.89 [place] [id number] [place] [phone] June, Post-traumatic stress disorder, unspecified F43.10 ; Major depressive disorder, recurrent, moderate F33.1 and Problems related to release from penitentiary Z65.2 [place] [address] [address] [place] [id number] [place] [phone] May, Lipoma of left lower extremity D17.24 ; Major depressive disorder, recurrent, moderate F33.1 ; Sleep apnea, obstructive G47.33 ; Hyperlipidemia E78.5 ; Obesity E66.9 ; HTN (hypertension) I10 ; Glaucoma H40.9 ; CAD (coronary artery disease) I25.10 ; Chronic tension headaches G44.229 ; Chronic pain G89.29 ; Anxiety F41.9 ; Nausea R11.0 and Primary insomnia F51.01 [place] [address] [address] [place] [id number] [place] [id number] 5968 May, [place] [id number] [place] [address] 50263- 3306 May, Chronic pain G89.29 [place] [id number] [place] [address] 82832- 1341 May, [place] [id number] [place] [address] 47344- 3597 Apr, Post-traumatic stress disorder, unspecified F43.10 ; Major depressive disorder, recurrent, moderate F33.1 and Problems related to release from penitentiary Z65.2 [place] [id number] [place] [address] 63114- 3939 Apr, Primary insomnia F51.01 ; Post-traumatic stress disorder, chronic F43.12 and Problems related to release from penitentiary Z65.2 [place] [id number] [place] [address] 52662- 7202 17 Apr, 2016 Post-traumatic stress disorder, unspecified F43.10 ; Major depressive disorder, recurrent, moderate F33.1 and Problems related to release from penitentiary Z65.2 [place] [id number] [place] [address] 04305- 2727 16 Apr, 2016 [place] [id number] [place] [address] 05345- 1693 16 Apr, 2016 Sleep apnea, obstructive G47.33 ; Chronic pain G89.29 ; HTN (hypertension) I10 ; Mitral valve prolapse I34.1 ; Shoulder pain, left M25.512 ; Arrhythmia as indication for cardiac pacemaker replacement I49.9 ; Glaucoma H40.9 ; Bilateral headaches R51 ; Environmental allergies Z91.09 ; Primary insomnia F51.01 and Nausea R11.0 [place] [id number] [place] [address] 78189- 2279 15 Apr, 2016 [place] [id number] [place] [address] 65416- 1581 15 Apr, [address] [place] [id number] [place] [address] 81438- 3493 Apr, Post-traumatic stress disorder, unspecified F43.10 ; Major depressive disorder, recurrent, moderate F33.1 and Problems related to release from penitentiary Z65.2 [place] [id number] [place] [address] 95557- 3580 07 Apr, 2016 HTN (hypertension) I10 [place] [id number] [place] [address] 37142- 2659 07 Apr, 2016 HTN (hypertension) I10 [place] [id number] [place] [address] 00077- 5262 14 Mar, 2016 Chronic pain G89.29 ; Primary insomnia F51.01 and Problems related to release from penitentiary Z65.2 [place] [id number] [place] [address] 39299- 2991 07 Mar, 2016 Post-traumatic stress disorder, unspecified F43.10 ; Major depressive disorder, recurrent, moderate F33.1 and Problems related to release from penitentiary Z65.2 [place] [id number] [place] [address] 69374- 1645 Feb, Post-traumatic stress disorder, unspecified F43.10 ; Major depressive disorder, recurrent, moderate F33.1 and Problems related to release from penitentiary Z65.2 [place] [id number] [place] [address] 73673- 9618 Feb, Chronic tension headaches G44.229 [place] [id number] [place] [address] 05981- 2199 Feb, Sleep apnea, obstructive G47.33 ; Obesity E66.9 ; Hyperlipidemia E78.5 ; Glaucoma H40.9 ; Chronic pain G89.29 ; HTN (hypertension ) I10 ; 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 ; 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 ; Chronic tension headaches G44.229 ; Cough R05 ; CAD (coronary artery disease) I25.10 ; Problems related to release from penitentiary Z65.2 ; Arrhythmia as indication for cardiac pacemaker replacement I49.9 and Primary insomnia F51.01 [place] [id number] [place] [address] 83637- 9791 Feb, Post-traumatic stress disorder, unspecified F43.10 and Chronic pain G89.29 [place] [id number] [place] [address] 83684- 6672 Feb, [facility] [id number] [place] [address] [id number] Feb, Dental caries K02.9 [place] [id number] [place] [address] 11184- 6465 Feb, [place] [id number] [place] [address] 43274- 6982 Feb, Post-traumatic stress disorder, unspecified F43.10 ; Major depressive disorder, recurrent, moderate F33.1 and Problems related to release from penitentiary Z65.2 [place] [address] [address]- 0975 Jan, Sleep apnea, obstructive G47.33 and Chronic pain G89.29 [place] [address] [address]- 9436 Jan, [place] [id number] [place] [address] 29050- 2276 14 Jan, 2016 Dental examination Z01.20 [place] [id number] [place] [address] 00116- 8606 09 Jan, 2016 [place] [id number] [place] [address] 01338- 4768 Jan, [place] [id number] [place] [address] 20498- 5643 Dec, Post-traumatic stress disorder, unspecified F43.10 ; Major depressive disorder, recurrent, moderate F33.1 and Problems related to release from penitentiary Z65.2 [place] [id number] [address]- 2566 Dec, Encounter for immunization Z23 ; Problems related to release from penitentiary Z65.2 ; Sleep apnea, obstructive G47.33 and Post-traumatic stress disorder, chronic F43.12 [place] [address] [address]- 5198 18 Dec, 2015 Sleep apnea, obstructive G47.33 ; Hyperlipidemia E78.5 ; Chronic pain G89.29 ; Glaucoma H40.9 ; HTN (hypertension) I10 ; Post-traumatic stress disorder, unspecified F43.10 ; Anxiety F41.9 ; Chronic tension headaches G44.229 ; Mitral valve prolapse I34.1 and CAD (coronary artery disease) I25.10 [place] [address] [address]- 8924 15 Dec, 2015 Post-traumatic stress disorder, unspecified F43.10 ; Major depressive disorder, recurrent, moderate F33.1 and Problems related to release from penitentiary Z65.2 [facility] [address] [address]- 4992 Nov, Chronic pain G89.29 [facility] [id number] [place] [address] 47617- 0436 Nov, Post-traumatic stress disorder, unspecified F43.10 ; Major depressive disorder, recurrent, moderate F33.1 and Problems related to release from penitentiary Z65.2 [facility] [id number] [place] [address] 46979- 7167 Oct, [facility] [id number] [place] [address] 17355- 9179 Oct, [facility] [id number] [place] [address] 72791- 9115 Oct, Post-traumatic stress disorder, unspecified F43.10 ; Major depressive disorder, recurrent, moderate F33.1 and Problems related to release from penitentiary Z65.2 [facility] [id number] [place] [address] 73088- 3866 08 Oct, 2015 [place] [id number] [place] [address] 60163- 3530 07 Oct, 2015 Environmental allergies Z91.09 ; Cough R05 and 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 [place] [address] [address]- 6678 Sep, [facility] [id number] [place] [address] 32845- 1984 Sep, Post-traumatic stress disorder, unspecified F43.10 ; Major depressive disorder, recurrent, moderate F33.1 and Problems related to release from penitentiary Z65.2 [facility] [id number] [place] [address] 99586- 5894 Sep, Chronic pain G89.29 [facility] [address] [address]- 2044 Sep, Pain in left shoulder M25.512 ; Pain in right shoulder M25.511 and Other chronic pain G89.29 [facility] [address] [address]- 6582 Sep, [facility] [id number] [place] [address] [phone]- 1108 Sep, [facility] [id number] [place] [address] 03040- 6031 Sep, [facility] [id number] [place] [address] [id number] Aug, Dental examination Z01.20 [place] [id number] [place] [address] 07895- 1000 Aug, Post-traumatic stress disorder, unspecified F43.10 ; Open- angle glaucoma of both 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 and Problems related to release from penitentiary Z65.2 [facility] [id number] [place] [address] 11425- 0306 Aug, [facility] [id number] [place] [address] 79968- 2620 Aug, Sleep apnea, obstructive G47.33 ; Obesity E66.9 ; Hyperlipidemia E78.5 ; Bilateral headaches R51 ; HTN (hypertension) I10 ; Post- traumatic stress disorder, unspecified F43.10 ; Anxiety F41.9 ; Neuropathy G62.9 ; Glaucoma H40.9 and Chronic pain G89.29 [facility] [id number] [place] [address] [id number] Aug, Encounter for dental examination Z01.20 [facility] [address] [address]- 5504 Aug, Post-traumatic stress disorder, unspecified F43.10 ; Major depressive disorder, recurrent, moderate F33.1 and Problems related to release from penitentiary Z65.2 [facility] [address] [address]- 3040 Aug, [facility] [id number] [address]- 4260 Jul, [facility] [id number] [place] [address] 02126- 5986 Jul, Post-traumatic stress disorder, unspecified F43.10 and Major depressive disorder, recurrent, moderate F33.1 [facility] [address] [address]- 2521 Jul, [facility] [id number] [place] [address] 06115- 0386 Jul, [facility] [id number] [place] [address] 67576- 6614 Jul, Chronic pain G89.29 [facility] [id number] [place] [address] 14914- 1426 June, Post-traumatic stress disorder, unspecified F43.10 and Major depressive disorder, recurrent, moderate F33.1 [facility] [address] [address]- 9547 June, [facility] [id number] [place] [address] 59968- 3207 June, Chronic pain G89.29 [facility] [id number] [place] [address] 65847- 0326 June, Post-traumatic stress disorder, unspecified F43.10 and Major depressive disorder, recurrent, moderate F33.1 [facility] [address] [address]- 1269 May, Post-traumatic stress disorder, unspecified F43.10 and Major depressive disorder, recurrent, moderate F33.1 [facility] [address] [address]- 8367 May, [facility] [address] [address]- 7891 May, [facility] [id number] [place] [address] 41319- 0912 05 May, 2015 [facility] [id number] [place] [address] 18157- 1983 Apr, [facility] [id number] [place] [address] 202371- 1137 Apr, Post-traumatic stress disorder, unspecified F43.10 and Sleep apnea, obstructive G47.33 [facility] [id number] [place] [address] 43763- 7264 Apr, [facility] [id number] [place] [address] 77750- 5843 Apr, Shoulder pain, left M25.512 [facility] [id number] [place] [address] 59034- 9486 Apr, Post-traumatic stress disorder, unspecified F43.10 and Major depressive disorder, recurrent, moderate F33.1 [facility] [id number] [place] [address] 55211- 3286 Apr, [facility] [id number] [place] [address] 00336- 3427 Apr, [facility] [id number] [place] [address] 51976- 8561 Apr, [facility] [id number] [place] [address] 62474- 4570 Apr, Left shoulder pain M25.512 [facility] [id number] [place] [address] 79330- 5872 Mar, [facility] [id number] [place] [address] 66722- 0572 Mar, [facility] [id number] [place] [address] 23066- 1810 Mar, [facility] [id number] [place] [address] 86397- 0195 Mar, Sleep apnea, obstructive G47.33 ; Obesity E66.9 ; Chronic pain G89.29 ; Hyperlipidemia E78.5 ; HTN (hypertension) I10 ; 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 ; Major depressive disorder, recurrent, moderate F33.1 and Anxiety F41.9 [place] [id number] [place] [address] 29757- 6137 Mar, [place] [address] 108807- 9342 Mar, Post-traumatic stress disorder, unspecified F43.10 and Major depressive disorder, recurrent, moderate F33.1 [place] [address] 254775- 3539 Mar, [place] [address] 89519- 3663 04 Mar, 2015 HTN (hypertension) I10 ; 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 ; Obesity E66.9 ; Hyperlipidemia E78.5 ; Glaucoma H40.9 ; Chronic pain G89.29 and CAD (coronary artery disease) I25.10 [place] [address] 25595- 0340 Feb, [place] [address] 35659- 3284 Feb, Post-traumatic stress disorder, unspecified F43.10 ; Obesity E66.9 ; Sleep apnea, obstructive G47.33 and 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 [place] [id number] [place] [address] 91068- 5516 Feb, Post-traumatic stress disorder, unspecified F43.10 and Major depressive disorder, recurrent, moderate F33.1 [place] [id number] [place] [address] 80005- 2879 Feb, [place] [id number] [place] [address] 39454- 3375 Feb, [place] [address] [place] [address]- 5103 Feb, HTN (hypertension) I10 ; Post-traumatic stress disorder, unspecified F43.10 ; 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 ; Obesity E66.9 ; Hyperlipidemia E78.5 ; Chronic pain G89.29 ; Glaucoma H40.9 ; Mitral valve prolapse I34.1 and Bilateral headaches R51 [place] [address] 74831- 9340 Feb, [place] [address] 19153- 6925 Feb, Post-traumatic stress disorder, unspecified F43.10 and Major depressive disorder, recurrent, moderate F33.1 [place] [address] 51751- 5807 Feb, [place] [address] 51810- 3589 Feb, [place] [address] 02521- 3003 Jan, [place] [address] 65768- 9869 Jan, [place] [id number] [place] [address] 23537- 5862 Jan, Obesity E66.9 ; HTN (hypertension) I10 ; 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 ; Major depressive disorder, recurrent, moderate F33.1 ; Glaucoma H40.9 ; Hyperlipidemia E78.5 ; Sleep apnea, obstructive G47.33 ; Chronic pain G89.29 ; Anxiety F41.9 ; Chronic tension headaches G44.229 and Cough R05 [place] [address] 93541- 9001 Jan, [place] [address] 70405- 9299 Jan, [place] [address] 43508- 4645 Jan, Post-traumatic stress disorder, unspecified F43.10 ; Obesity E66.9 ; Sleep apnea, obstructive G47.33 and 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 [place] [id number] [place]- 7393 Jan, [place] [address]966- 3781 Jan, Post-traumatic stress disorder, unspecified F43.10 and Major depressive disorder, recurrent, moderate F33.1 [place] [address] 730473- 9242 Dec, [place] 277966- 1463 Dec, Sleep apnea, obstructive G47.33 ; Obesity E66.9 ; Hyperlipidemia E78.5 ; Glaucoma H40.9 ; Chronic pain G89.29 ; HTN (hypertension ) I10 ; 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 ; Anxiety F41.9 and CAD (coronary artery disease) I25.10 [place] [id number] [place] [address] 89545- 1306 Nov, [address] 15186- 1639 Nov, [place] [id number] [place] [address] 73977- 2897 Nov, [place] [address] [place] [id number]- 3965 Nov, [place] [id number] [place] [address] 79403- 4978 Nov, [place] 277964- 5495 Nov, Encounter for immunization Z23 ; Sleep apnea, obstructive G47.33 ; Obesity E66.9 ; Hyperlipidemia E78.5 ; Glaucoma H40.9 ; Chronic pain G89.29 ; Anxiety F41.9 ; Chronic tension headaches G44.229 and HTN (hypertension ) I10 [facility] [id number] [place] [address] 94791- 1439 Nov, [facility] [id number] [place] [address] 53855- 1640 Nov, [facility] [id number] [place] [address] 26526- 9294 Nov, Dizziness R42 [facility] [address] 05154- 0727 Nov, [facility] [address] 87747- 9909 Oct, [facility] [address] 00453- 1633 Oct, [facility] [address] 08468- 3865 Oct, [facility] [id number] [place] [address] 60561- 0933 Oct, [facility] [address] 34432- 4138 Oct, Dizziness 780.4 ; Essential hypertension 401.9 ; Obesity 278.00 ; Hyperlipidemia 272.4 ; Chronic pain 338.29 ; Glaucoma 365.9 and Anxiety 300.00 [facility] [id number] [place] [address] 76588- 6682 Oct, Essential hypertension 401.9 ; Hyperlipidemia 272.4 ; Glaucoma 365.9 ; Obesity 278.00 ; Chronic pain 338.29 and Allergy to insects V15.06 [facility] [id number] [place] [address] 41442- 1753 Sep, [facility] [id number] [place] [address] 13014- 4587 Sep, [facility] [address] 00059- 9968 Sep, [facility] [address] [facility] [id number] [address]- 2546 Sep, [facility] [address] [facility] [id number] [address]- 2546 Aug, Essential hypertension 401.9 ; Obesity 278.00 ; Hyperlipidemia 272.4 ; Glaucoma 365.9 ; Lipoma 214.9 ; Mitral valve prolapse 424.0 ; Angina at rest 413.9 ; Lymphedema 457.1 and Chronic pain 338.29 IMMUNIZATIONS No Known Immunizations SOCIAL HISTORY Never Assessed REASON FOR VISIT tooth pain; top right side; will have tooth pulled on 01/07/18, but has an infection; the pain makes his head and ear hurt - CHRISTIE Wood, Has been on abx for this issue, but finished the course PLAN OF CARE Activity Details Follow Up See oral surgeon as scheduled. Reason: VITAL SIGNS Height 67 in 2017-12-27 Weight 272.4 lbs 2017-12-27 Temperature 97.6 degrees Fahrenheit 2017-12-27 Heart Rate 92 bpm 2017-12-27 Respiratory Rate 19 2017-12-27 BMI 42.66 kg/m2 2017-12-27 Blood pressure systolic 120 mmHg 2017-12-27 Blood pressure diastolic 100 mmHg 2017-12-27 MEDICATIONS Medication Instructions Dosage Frequency Start Date End Date Duration Status Methotrexate 2.5 MG 3 tablets once for one week then 4 tablets once for 2 weeks then 6 tablets q7days there after Active Zofran ODT 4 MG Orally every 8 hrs prn 1 tablet on the tongue and allow to dissolve 10 Active Losartan Potassium 100 MG Orally Once a day 1 tablet 24h Active Folic Acid 1 MG Orally Once a day 1 tablet 24h Active Cartia XT 300 MG Orally Once a day 1 capsule 24h 90 days Active Tessalon Perles 100 MG Orally Three times a day 1 capsule as needed 8h Dec, 10 days Active Xanax 1 MG Orally Twice a day for anxiety 1 tablet 30 days Active Belsomra 10 mg Orally Once a day 1/2 to 1 whole tablet at bedtime as needed for insomnia 24h Oct, Active Nitrostat 0.4 MG Sublingual every 5 minutes x 3 PRN 1 tablet 30 days Active Hydrocodone-Acetaminophen 7.5-325 MG Orally 4 times a day 1 tablet 6h Nov, Active Metoprolol Succinate ER 200 mg Orally Once a day 1 tablet 24h 90 days Active Gabapentin 300 MG Orally Once a day x 3 days then twice daily x 3 days then increase to three times daily 1 capsule Dec, 30 day(s) Active Atorvastatin Calcium 40 MG TAKE ONE TABLET BY MOUTH ONCE DAILY Active EPINEPHrine 0.3 MG/0.3ML as directed Jul, Active Albuterol Sulfate HFA 108 (90 Base) MCG/ACT Inhalation every 4-6 hours 2 puffs as needed Dec, 30 days Active Cefdinir 300 MG Orally every 12 hours take 1 capsule 12h Dec, 10 days Active Topamax 100 MG TAKE ONE TABLET BY MOUTH TWICE DAILY 90 Active RESULTS No Results PROCEDURES No [...]
--- OUTSIDE RECORDS SUMMARY | 2018-02-04 13:57 | XMS REPORT ---
Author Author ALENA ÁLVAREZ [facility] Address [address] [place] [address] Care Team Providers Care Mud [employer] Tender Name Role Phone ALENA ÁLVAREZ Unavailable PROBLEMS Type Condition ICD9-CM Code NHC58-LE Code Onset Dates Condition Status SNOMED Code Problem Hyperlipidemia E78.5 Active 45272335 Problem Sleep apnea, obstructive G47.33 Active 73708365 Problem Primary insomnia F51.01 Active 0668507 Problem Chronic pain G89.29 Active 11216387 Problem Morbid (severe) obesity due to excess calories E66.01 Active 926805197 Problem Myocarditis, unspecified chronicity, 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 Active 73960259 Problem Other male erectile dysfunction N52.8 Active 076448529 Problem 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 Active 118855522 Problem Body mass index (BMI) of 40.0-44.9 in adult Z68.41 Active 718617959 Problem Supraventricular tachycardia I47.1 Active 1344735 Problem Insomnia disorder with non-sleep disorder mental comorbidity G47.00 Active 04845255 Problem Chronic tension headaches G44.229 Active 938341482 Problem HTN (hypertension) I10 Active 59488923 Problem 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 Active 683147268 Problem Chronic pain syndrome G89.4 Active 618654199 Problem Migraine without aura and without status migrainosus, not intractable G43.009 Active 740245622 Problem Sarcoidosis D86.9 Active 67442829 Problem Problems related to release from fci Z65.2 Active [id number] Problem 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 Active 11863083 Problem Mitral valve prolapse I34.1 Active 535935514 Problem Anxiety F41.9 Active 76593646 Problem Major depressive disorder, recurrent, moderate F33.1 Active 64733534 Problem Environmental allergies Z91.09 Active 479095620 Problem Arrhythmia as indication for cardiac pacemaker replacement I49.9 Active 99662715 Problem CAD (coronary artery disease) I25.10 Active 85626016 Problem Post-traumatic stress disorder, chronic F43.12 Active 995584798 ALLERGIES No Information ENCOUNTERS Encounter Location Date Diagnosis [facility] [id number] [place] [address] 03217- 0418 Jan, [facility] [id number] [place] [address] 98464- 7136 Jan, [facility] [address] 09968- 1918 Dec, Encounter for long-term (current) use of other medications Z79.899 [facility] [address] 76130- 6823 Dec, [facility] [id number] [place] [address] 99593 -0925 Dec, Tooth pain K08.89 ; Active dental caries K02.9 and BMI 40.0 -44.9, adult Z68.41 [facility] [id number] [place] [address] 48503 -0048 Dec, Acute bronchitis J20.9 and BMI 40.0-44.9, adult Z68.41 [facility] [id number] [place] [address] 77497- 5952 15 Dec, 2017 [facility] [id number] [place] [address] 58756- 0476 Dec, [facility] [id number] [place] [address] 93826- 1482 Dec, [facility] [id number] [place] [address] 44745- 0932 Dec, [facility] [id number] [place] [address] 41880- 1977 Nov, [facility] [id number] [place] [address] 67178- 7960 Nov, Left leg pain M79.605 [facility] [address] [address] [address] [id number] [id number] Nov, [place] [address] [place] [address] 73595- 9881 Nov, Encounter for long-term (current) use of other medications Z79.899 [facility] [address] [place] [address] 52612- 0858 Nov, [place] [id number] [place] [address] 03826- 3795 Nov, Left leg pain M79.605 [facility] [address] [place] [address] [id number] Oct, Dental examination Z01.20 [place] [id number] [place] [address] 18933- 1372 Oct, Insomnia disorder with non-sleep disorder mental comorbidity G47.00 [place] [id number] [place] [address] 78716- 7509 Oct, Post-traumatic stress disorder, chronic F43.12 ; Insomnia disorder with non-sleep disorder mental comorbidity G47.00 and BMI 40.0-44.9, adult Z68.41 [place] [address] [place] [address] 62087- 9979 Oct, [facility] [address] [place] [address] 24733 -5576 Oct, Insect bite (nonvenomous), left lower leg, initial encounter S80.862A ; Bitten or stung by nonvenomous insect and other nonvenomous arthropods, initial encounter W57.XXXA and BMI 40.0-44.9, adult Z68.41 [place] [address] [place] [address] 11223- 4514 Oct, Left leg pain M79.605 [place] [id number] [place] [address] 64177- 3652 04 Oct, 2017 Post-traumatic stress disorder, unspecified F43.10 ; Major depressive disorder, recurrent, moderate F33.1 and Problems related to release from fci Z65.2 [facility] [address] 00546- 5850 2017 Arrhythmia as indication for cardiac pacemaker replacement I49.9 [facility] [address] 61269- 4672 Sep, [facility] [address] 24910- 5550 20 Sep, 2017 HTN (hypertension) I10 [facility] [address] 74087- 6903 17 Sep, 2017 [facility] [address] 98731- 7573 16 Sep, 2017 Body mass index (BMI) of 40.0-44.9 in adult Z68.41 ; Chronic pain G89.29 and Supraventricular tachycardia I47.1 [facility] [address] 28704- 4857 15 Sep, 2017 [facility] [address] 90521- 7045 Sep, Sarcoidosis D86.9 [facility] [id number] [place] [address] 28964- 5313 Sep, Sarcoidosis D86.9 [facility] [id number] [place] [address] 80760- 1342 Sep, [facility] [id number] [place] [address] 30217- 9569 Sep, [facility] [address] 68563- 0301 Sep, [facility] [id number] [place] [address] 15625- 4398 Sep, [facility] [address] 10632- 6684 Sep, Left leg pain M79.605 [facility] [address] [place] [address] 51953- 9574 Sep, HTN (hypertension) I10 [facility] [id number] [place] [address] 99492- 8286 Sep, [facility] [id number] [place] [address] 84034- 2470 Sep, Post-traumatic stress disorder, unspecified F43.10 ; Major depressive disorder, recurrent, moderate F33.1 and Problems related to release from fci Z65.2 [facility] [id number] [place] [address] 39379- 8339 Sep, [facility] [id number] [place] [address] 23127- 4984 Aug, [facility] [id number] [place] [address] 11057- 0058 Aug, Sarcoidosis D86.9 [facility] [id number] [place] [address] 76375- 5822 Aug, Sarcoidosis D86.9 [facility] [id number] [place] [address] 10148- 1545 Aug, HTN (hypertension) I10 [facility] [address] [place] [address] 57650- 8400 Aug, Post-traumatic stress disorder, unspecified F43.10 ; Major depressive disorder, recurrent, moderate F33.1 and Problems related to release from fci Z65.2 [facility] [address] [place] [address] 51951- 0853 Aug, [facility] [id number] [place] [address] 10958- 1326 Aug, Left leg pain M79.605 [facility] [id number] [place] [address] 11230- 9901 Jul, Post-traumatic stress disorder, chronic F43.12 ; Anxiety F41.9 ; Problems related to release from fci Z65.2 and BMI 40.0-44.9, adult Z68.41 [place] [address] 57892- 9135 20 Jul, 2017 HTN (hypertension) I10 ; Body mass index (BMI) of 40.0-44.9 in adult Z68.41 ; Acute swimmer''s ear of both sides H60.333 and Chronic pain G89.29 [place] [address] 69423- 0459 19 Jul, 2017 Glaucoma H40.9 [place] [address] 10750- 3254 14 Jul, 2017 [place] [address] 29241- 5824 13 Jul, 2017 Sarcoidosis D86.9 [place] [address] 56002- 4579 12 Jul, 2017 Left leg pain M79.605 [place] [address] 30195- 8420 12 Jul, 2017 Sarcoidosis D86.9 [place] [address] 69231- 8379 Jul, Post-traumatic stress disorder, unspecified F43.10 ; Major depressive disorder, recurrent, moderate F33.1 and Problems related to release from fci Z65.2 [facility] [id number] [place] [address] 11692- 4033 June, [facility] [address] 74677 -0637 30 Jun, 2017 Sore throat J02.9 and BMI 40.0-44.9, adult Z68.41 [place] [address] 12199- 0175 June, [place] [address] [address]- 3582 June, [facility] [address] [address]- 5358 June, [facility] [address] [address]- 8364 June, Left leg pain M79.605 [facility] [id number] [address]- 1696 June, Sarcoidosis D86.9 [facility] [address] [address]- 1234 June, [facility] [address] [address]- 4953 June, [facility] [address] [address]- 8936 June, Left leg pain M79.605 [facility] [address] [address]- 8843 May, [facility] [address] [address]- 0387 May, [facility] [address] [address]- 0725 May, [facility] [id number] [address]- 4771 May, Left leg pain M79.605 [facility] [id number] [address]- 5042 May, Post-traumatic stress disorder, unspecified F43.10 ; Major depressive disorder, recurrent, moderate F33.1 and Problems related to release from fci Z65.2 [facility] [id number] [address]- 2221 May, Chronic pain G89.29 ; Anxiety F41.9 ; Chest pain, unspecified type R07.9 and BMI 40.0-44.9, adult Z68.41 [place] [id number] [place] [address] 47665- 3026 30 Apr, 2017 [place] [address] 05447505- 4964 Apr, Left leg pain M79.605 [place] [address] 62210- 3362 Apr, Post-traumatic stress disorder, unspecified F43.10 ; Problems related to release from fci Z65.2 ; Anxiety F41.9 and BMI 40.0-44.9 , adult Z68.41 [place] [address] 46626- 9319 Apr, [place] [address] 30911- 3585 Apr, Left leg pain M79.605 [place] [address] 53959- 3515 Apr, Post-traumatic stress disorder, unspecified F43.10 ; Major depressive disorder, recurrent, moderate F33.1 and Problems related to release from fci Z65.2 [place] [id number] [place] [address] 68574- 4227 Apr, [place] [id number] [place] [address] 40555- 9052 Apr, Chronic pain G89.29 ; 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 [address] 84843 -2949 Apr, Sore throat J02.9 and BMI 40.0-44.9, adult Z68.41 [facility] [id number] [place] [address] 61112- 0677 Apr, Left leg pain M79.605 [facility] [address] [place] [address] [id number] Mar, Dental examination Z01.20 [facility] [id number] [place] [address] 27296- 5076 Mar, [facility] [id number] [place] [address] 77264 -5402 Mar, Cough R05 ; Viral gastroenteritis A08.4 and BMI 40.0-44.9, adult Z68.41 [facility] [id number] [place] [address] 31081- 0215 Mar, Left leg pain M79.605 [facility] [id number] [place] [address] 21680- 4946 Mar, Post-traumatic stress disorder, unspecified F43.10 ; Major depressive disorder, recurrent, moderate F33.1 and Problems related to release from fci Z65.2 [place] [id number] [place] [address] 04285- 2185 Feb, Left leg pain M79.605 [facility] [address] 42503- 8095 Feb, [place] [id number] [place] [address] 14283- 3964 Feb, BMI 40.0-44.9, adult Z68.41 ; Chronic pain syndrome G89.4 ; Migraine without aura and without status migrainosus, not intractable G43.009 ; Mitral valve prolapse I34.1 and 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 [place] [id number] [place] [address] 56798- 6179 Feb, Post-traumatic stress disorder, chronic F43.12 ; Anxiety F41.9 ; Problems related to release from fci Z65.2 and BMI 40.0-44.9, adult Z68.41 [place] [address] 95565- 9815 Feb, Post-traumatic stress disorder, unspecified F43.10 ; Major depressive disorder, recurrent, moderate F33.1 and Problems related to release from fci Z65.2 [facility] [address] [place] [address] 46069- 2937 Feb, Left leg pain M79.605 [facility] [id number] [place] [address] 033771- 6237 Jan, Post-traumatic stress disorder, unspecified F43.10 ; Major depressive disorder, recurrent, moderate F33.1 and Problems related to release from fci Z65.2 [place] [id number] [place] [address] 493549- 2963 Jan, [facility] [id number] [place] [address] 03913- 2395 Jan, [facility] [id number] [place] [address] 45979- 2845 Jan, Anxiety F41.9 [place] [id number] [place] [address] 24532- 4061 Jan, Left leg pain M79.605 [place] [id number] [place]- 1617 Dec, Left leg pain M79.605 [facility] [id number] [place] [address] 31818- 4213 Dec, [facility] [id number] [place] [address] 93359- 9490 15 Dec, 2016 Post-traumatic stress disorder, unspecified F43.10 ; Major depressive disorder, recurrent, moderate F33.1 and Problems related to release from fci Z65.2 [facility] [id number] [place] [address] 33792- 9990 Nov, Chronic pain G89.29 and Anxiety F41.9 [facility] [id number] [place] [address]- [address]24 Nov, Chronic pain G89.29 and Anxiety F41.9 [place] [id number] [place] [address]- 6011 16 Nov, 2016 Post-traumatic stress disorder, unspecified F43.10 ; Major depressive disorder, recurrent, moderate F33.1 and Problems related to release from fci Z65.[address] 55007- 3610 09 Nov, 2016 Other abnormal findings in specimens from other organs, systems and tissues R89.8 ; Other male erectile dysfunction N52.8 ; Body mass index (BMI) of 40.0-44.9 in adult Z68.41 and Morbid (severe) obesity due to excess calories E66.01 [place] [address] 27579- 0210 02 Nov, 2016 Post-traumatic stress disorder, unspecified F43.10 ; Major depressive disorder, recurrent, moderate F33.1 and Problems related to release from fci Z65.2 [facility] [address] [id number] 29 Oct, 2016 Dental examination Z01.[address] 83007- 3028 Oct, [place] [address] 36082- 4551 Oct, Encounter for immunization Z23 [address] 95383- 0094 Oct, Chronic pain G89.29 ; Anxiety F41.9 ; Arrhythmia as indication for cardiac pacemaker replacement I49.9 and Glaucoma H40.[address] 30110- 4076 Oct, Anxiety F41.9 ; Post-traumatic stress disorder, chronic F43.12 and Problems related to release from fci Z65.[address] 85221- 7282 Oct, Post-traumatic stress disorder, unspecified F43.10 ; Major depressive disorder, recurrent, moderate F33.1 and Problems related to release from fci Z65.2 [place] [id number] [place] [address] 15659- 6365 Sep, Chronic pain G89.29 and Anxiety F41.[address] 13069- 9605 Sep, Post-traumatic stress disorder, unspecified F43.10 ; Major depressive disorder, recurrent, moderate F33.1 and Problems related to release from fci Z65.2 [place] [address] 88952- 2766 Sep, Post-traumatic stress disorder, unspecified F43.10 ; Major depressive disorder, recurrent, moderate F33.1 and Problems related to release from fci Z65.2 [place] [address] 74833- 7734 Sep, Chronic pain G89.29 [place] [id number] [place] [address] 23843- 9806 Aug, Dental caries, unspecified K02.9 [place] [id number] [place] [address] 87426- 3579 Aug, Sleep apnea, obstructive G47.33 ; Obesity E66.9 ; Chronic pain G89.29 ; HTN (hypertension) I10 ; Major depressive disorder, recurrent, moderate F33.1 ; Anxiety F41.9 ; Chronic tension headaches G44.229 ; Mitral valve prolapse I34.1 ; Arrhythmia as indication for cardiac pacemaker replacement I49.9 ; Dental caries, unspecified K02.9 ; Primary insomnia F51.01 and Hyperlipidemia E78.[address] [place] [address] 39110- 4336 Aug, Post-traumatic stress disorder, unspecified F43.10 ; Major depressive disorder, recurrent, moderate F33.1 and Problems related to release from fci Z65.[address] [id number] [address]- 6545 20 Aug, 2016 Dental examination Z01.20 [facility] [address] [place] [address] [id number] 13 Aug, 2016 Dental examination Z01.20 [facility] [id number] [place] [address] 67385- 0350 06 Aug, 2016 Post-traumatic stress disorder, unspecified F43.10 ; Major depressive disorder, recurrent, moderate F33.1 and Problems related to release from fci Z65.2 [facility] [id number] [place] [address] 24782- 6084 05 Aug, 2016 Chronic pain G89.29 and Primary insomnia F51.01 [facility] [id number] [place] [address] 40440- 6368 30 Jul, 2016 [facility] [id number] [place] [address] 27249- 7550 Jul, [facility] [id number] [place] [address] 56425- 4831 30 Jul, 2016 Nausea R11.0 [facility] [id number] [place] [address] 20448- 6628 Jul, Arrhythmia as indication for cardiac pacemaker replacement I49.9 [facility] [id number] [place] [address] 83146- 2072 Jul, Post-traumatic stress disorder, unspecified F43.10 ; Major depressive disorder, recurrent, moderate F33.1 and Problems related to release from fci Z65.2 [facility] [address] [place] [address] 07086- 2552 09 Jul, 2016 Anxiety F41.9 [facility] [id number] [place] [address] 60507- 3595 08 Jul, 2016 Chronic pain G89.29 [facility] [id number] [place] [address] 59802- 3038 Jul, Sleep apnea, obstructive G47.33 ; Hyperlipidemia E78.5 ; Chronic pain G89.29 ; 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 ; Major depressive disorder, recurrent, moderate F33.1 ; Anxiety F41.9 ; Mitral valve prolapse I34.1 ; Arrhythmia as indication for cardiac pacemaker replacement I49.9 ; Primary insomnia F51.01 ; Bilateral headaches R51 and Environmental allergies Z91.09 [place] [address] 38564- 1956 Jul, Post-traumatic stress disorder, unspecified F43.10 ; Major depressive disorder, recurrent, moderate F33.1 and Problems related to release from fci Z65.2 [place] [address] 086788- 0222 June, Post-traumatic stress disorder, chronic F43.12 ; Anxiety F41.9 ; Problems related to release from fci Z65.2 ; Sleep apnea, obstructive G47.33 and Primary insomnia F51.01 [place] [address] 41791- [address] June, [place] [address] [address] June, [place] [address] [address] June, [place] [address] [address] [place] [id number] [place] [address] June, Chronic pain G89.29 [place] [address] [address] June, Chronic pain G89.29 [place] [address] [address] June, Lipoma of left lower extremity D17.24 ; Open wound T14.8 and Swelling of left lower extremity M79.89 [place] [address] [address] [place] [id number] [place] [address] June, Post-traumatic stress disorder, unspecified F43.10 ; Major depressive disorder, recurrent, moderate F33.1 and Problems related to release from [facility]ci Z65.2 [place] [address] [address] May, Lipoma of left lower extremity D17.24 ; Major depressive disorder, recurrent, moderate F33.1 ; Sleep apnea, obstructive G47.33 ; Hyperlipidemia E78.5 ; Obesity E66.9 ; HTN (hypertension) I10 ; Glaucoma H40.9 ; CAD (coronary artery disease) I25.10 ; Chronic tension headaches G44.229 ; Chronic pain G89.29 ; Anxiety F41.9 ; Nausea R11.0 and Primary insomnia F51.01 [place] [address] [address] May, [place] [address] [address] May, Chronic pain G89.29 [place] [address] [address] May, [place] [address] [address] Apr, Post-traumatic stress disorder, unspecified F43.10 ; Major depressive disorder, recurrent, moderate F33.1 and Problems related to release from [facility] Z65.2 [place] [address] [address] [place] [id number] [place] [address] Apr, Primary insomnia F51.01 ; Post-traumatic stress disorder, chronic F43.12 and Problems related to release from [facility]ci Z65.[address] [place] [id number] [place] [address] 15067- 1235 Apr, Post-traumatic stress disorder, unspecified F43.10 ; Major depressive disorder, recurrent, moderate F33.1 and Problems related to release from fci Z65.[address] [place] [id number] [place] [address] 74008- 8787 Apr, [place] [address] [place] [address] 85[address] 16 Apr, 2016 Sleep apnea, obstructive G47.33 ; Chronic pain G89.29 ; HTN (hypertension) I10 ; Mitral valve prolapse I34.1 ; Shoulder pain, left M25.512 ; Arrhythmia as indication for cardiac pacemaker replacement I49.9 ; Glaucoma H40.9 ; Bilateral headaches R51 ; Environmental allergies Z91.09 ; Primary insomnia F51.01 and Nausea R11.0 [place] [address] 04650- 4431 Apr, [place] [address] 50811- 7253 Apr, [place] [address] 23157- 7678 Apr, Post-traumatic stress disorder, unspecified F43.10 ; Major depressive disorder, recurrent, moderate F33.1 and Problems related to release from fci Z65.2 [place] [id number] [place] [address] 45246- 5448 Apr, HTN (hypertension) I10 [place] [address] 83924- 1600 Apr, HTN (hypertension) I10 [place] [id number] [place] [address] 95484- 7772 14 Mar, 2016 Chronic pain G89.29 ; Primary insomnia F51.01 and Problems related to release from fci Z65.2 [place] [id number] [place] [address] 28197- 5937 07 Mar, 2016 Post-traumatic stress disorder, unspecified F43.10 ; Major depressive disorder, recurrent, moderate F33.1 and Problems related to release from fci Z65.2 [place] [id number] [place] [address] 15813- 8894 Feb, Post-traumatic stress disorder, unspecified F43.10 ; Major depressive disorder, recurrent, moderate F33.1 and Problems related to release from fci Z65.2 [place] [id number] [place] [address] 16456- 4157 Feb, Chronic tension headaches G44.[address] 04420- 2735 Feb, Sleep apnea, obstructive G47.33 ; Obesity E66.9 ; Hyperlipidemia E78.5 ; Glaucoma H40.9 ; Chronic pain G89.29 ; HTN (hypertension ) I10 ; 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 ; 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 ; Chronic tension headaches G44.229 ; Cough R05 ; CAD (coronary artery disease) I25.10 ; Problems related to release from fci Z65.2 ; Arrhythmia as indication for cardiac pacemaker replacement I49.9 and Primary insomnia F51.01 [place] [id number] [place] [address] 41184- 1069 17 Feb, 2016 Post-traumatic stress disorder, unspecified F43.10 and Chronic pain G89.[address] 13658- 5577 Feb, [facility] [address] [id number] Feb, Dental caries K02.9 [place] [id number] [place] [address] 27467- 6625 Feb, [address] 15562- 3239 Feb, Post-traumatic stress disorder, unspecified F43.10 ; Major depressive disorder, recurrent, moderate F33.1 and Problems related to release from fci Z65.[address] 38175- 0985 Jan, Sleep apnea, obstructive G47.33 and Chronic pain G89.29 [place] [id number] [place] [address] 08671- 0000 Jan, [address] 19232- 4926 14 Jan, 2016 Dental examination Z01.20 [place] [address] [address] 7433 Jan, [place] [id number] [place] [address] [id number]- 9773 Jan, [place] [id number] [place] [address] 81088- 3203 Dec, Post-traumatic stress disorder, unspecified F43.10 ; Major depressive disorder, recurrent, moderate F33.1 and Problems related to release from fci Z65.2 [place] [id number] [place] [address] 64429- 1396 Dec, Encounter for immunization Z23 ; Problems related to release from fci Z65.2 ; Sleep apnea, obstructive G47.33 and Post-traumatic stress disorder, chronic F43.12 [place] [id number] [place] [address] 20496- 4808 Dec, Sleep apnea, obstructive G47.33 ; Hyperlipidemia E78.5 ; Chronic pain G89.29 ; Glaucoma H40.9 ; HTN (hypertension) I10 ; Post-traumatic stress disorder, unspecified F43.10 ; Anxiety F41.9 ; Chronic tension headaches G44.229 ; Mitral valve prolapse I34.1 and CAD (coronary artery disease) I25.[id number] [place] [address] 74744- 4986 Dec, Post-traumatic stress disorder, unspecified F43.10 ; Major depressive disorder, recurrent, moderate F33.1 and Problems related to release from fci Z65.2 [address] [address] 8438 Nov, Chronic pain G89.29 [id number] [place] [address] 93410- 0431 Nov, Post-traumatic stress disorder, unspecified F43.10 ; Major depressive disorder, recurrent, moderate F33.1 and Problems related to release from fci Z65.2 [facility] [address] [address] 7446 Oct, [facility] [id number] [place] [address] 45764- 0607 Oct, [facility] [id number] [place] [address] 98004- 8229 Oct, Post-traumatic stress disorder, unspecified F43.10 ; Major depressive disorder, recurrent, moderate F33.1 and Problems related to release from fci Z65.2 [facility] [address] [address]- 0082 08 Oct, 2015 [facility] [id number] [place] [address] 84575- 5053 07 Oct, 2015 Environmental allergies Z91.09 ; Cough R05 and 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 [facility] [id number] [place] [address] 70300- 8879 Sep, [facility] [id number] [place] [address] 91534- 1956 Sep, Post-traumatic stress disorder, unspecified F43.10 ; Major depressive disorder, recurrent, moderate F33.1 and Problems related to release from fci Z65.2 [facility] [address] [address]- 4098 Sep, Chronic pain G89.29 [facility] [id number] [place] [address] 56968- 8065 Sep, Pain in left shoulder M25.512 ; Pain in right shoulder M25.511 and Other chronic pain G89.29 [facility] [address] [address]- 9934 Sep, [facility] [address] [address]- 1292 Sep, [facility] [id number] [place] [address] 31349450- 7166 Sep, [facility] [id number] [id number] Aug, Dental examination Z01.20 [facility] [id number] [place] [address] 24371- 1639 Aug, Post-traumatic stress disorder, unspecified F43.10 ; Open- angle glaucoma of both 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 and Problems related to release from fci Z65.2 [facility] [id number] [place] [address] 15855- 3110 Aug, [facility] [id number] [place] [address] 67596- 8837 Aug, Sleep apnea, obstructive G47.33 ; Obesity E66.9 ; Hyperlipidemia E78.5 ; Bilateral headaches R51 ; HTN (hypertension) I10 ; Post- traumatic stress disorder, unspecified F43.10 ; Anxiety F41.9 ; Neuropathy G62.9 ; Glaucoma H40.9 and Chronic pain G89.29 [facility] [address] [facility] [id number] [id number] Aug, Encounter for dental examination Z01.20 [facility] [id number] [place] [address] 78114- 5357 Aug, Post-traumatic stress disorder, unspecified F43.10 ; Major depressive disorder, recurrent, moderate F33.1 and Problems related to release from fci Z65.2 [facility] [address] [address]- 4101 Aug, [facility] [address] [address]- 2574 Jul, [facility] [id number] [place] [address] 87936- 5566 Jul, Post-traumatic stress disorder, unspecified F43.10 and Major depressive disorder, recurrent, moderate F33.1 [facility] [id number] [place] [address] 72410- 7067 Jul, [facility] [address] [address]- 8207 Jul, [facility] [id number] [place] [address] 34539- 4198 Jul, Chronic pain G89.29 [facility] [id number] [place] [address] 57003- 9410 June, Post-traumatic stress disorder, unspecified F43.10 and Major depressive disorder, recurrent, moderate F33.1 [facility] [id number] [place] [address] 53963- 9364 June, [facility] [id number] [place] [address] 44956- 0308 June, Chronic pain G89.29 [facility] [id number] [place] [address] 49101- 1509 June, Post-traumatic stress disorder, unspecified F43.10 and Major depressive disorder, recurrent, moderate F33.1 [facility] [id number] [place] [address] 14448- 1145 May, Post-traumatic stress disorder, unspecified F43.10 and Major depressive disorder, recurrent, moderate F33.1 [facility] [id number] [place] [address] 40913- 2238 May, [facility] [id number] [place] [address] 50201- 9147 May, [facility] [address] [address]- 0914 May, [facility] [id number] [place] [address] 02870- 3165 Apr, [facility] [id number] [place] [address] 19453- 0694 Apr, Post-traumatic stress disorder, unspecified F43.10 and Sleep apnea, obstructive G47.33 [facility] [id number] [place] [address] 77552- 7220 31 Apr, 2015 [facility] [id number] [place] [address] 62951- 9078 21 Apr, 2015 Shoulder pain, left M25.512 [facility] [id number] [place] [address] 07346- 0627 18 Apr, 2015 Post-traumatic stress disorder, unspecified F43.10 and Major depressive disorder, recurrent, moderate F33.1 [facility] [id number] [place] [address] 95878- 9177 17 Apr, 2015 [facility] [address] 54342- 9091 11 Apr, 2015 [facility] [id number] [place] [address] 12312- 3375 08 Apr, 2015 [facility] [address] 33885- 9016 07 Apr, 2015 Left shoulder pain M25.512 [facility] [id number] [place] [address] 43111- 8274 Mar, [facility] [id number] [place] [address] 80420- 7025 Mar, [facility] [id number] [place] [address] 87477- 8490 18 Mar, 2015 [facility] [id number] [place] [address] 81088- 1728 Mar, Sleep apnea, obstructive G47.33 ; Obesity E66.9 ; Chronic pain G89.29 ; Hyperlipidemia E78.5 ; HTN (hypertension) I10 ; 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 ; Major depressive disorder, recurrent, moderate F33.1 and Anxiety F41.9 [facility] [id number] [place] [address] 38922- 5959 Mar, [facility] [address] [place] [address]- 8521 Mar, Post-traumatic stress disorder, unspecified F43.10 and Major depressive disorder, recurrent, moderate F33.1 [place] [id number] [place] [address]- 7567 08 Mar, 2015 [place] [id number] [place] [address]- 2706 04 Mar, 2015 HTN (hypertension) I10 ; 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 ; Obesity E66.9 ; Hyperlipidemia E78.5 ; Glaucoma H40.9 ; Chronic pain G89.29 and CAD (coronary artery disease) I25.10 [place] [id number] [place] [address] 3981 Feb, [place] [id number] [place] [address] 27520- 4758 Feb, Post-traumatic stress disorder, unspecified F43.10 ; Obesity E66.9 ; Sleep apnea, obstructive G47.33 and 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 [place] [id number] [place] [address] 31193- 0789 Feb, Post-traumatic stress disorder, unspecified F43.10 and Major depressive disorder, recurrent, moderate F33.1 [place] [id number] [place] [address] 50141- 4248 Feb, [place] [id number] [place] [address] 54296- 0768 Feb, [place] [id number] [place] [address] 49283- 9390 Feb, HTN (hypertension) I10 ; Post-traumatic stress disorder, unspecified F43.10 ; 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 ; Obesity E66.9 ; Hyperlipidemia E78.5 ; Chronic pain G89.29 ; Glaucoma H40.9 ; Mitral valve prolapse I34.1 and Bilateral headaches R51 [place] [id number] [place] [id number]- 2546 Feb, [facility] [id number] [place] [address] 96978- 1966 Feb, Post-traumatic stress disorder, unspecified F43.10 and Major depressive disorder, recurrent, moderate F33.1 [place] [id number] [place] [address] 93405- 9241 Feb, [facility] [id number] [place] [address] 90984- 9202 Feb, [facility] [id number] [place] [address] 55823- 6489 Jan, [place] [id number] [place] [address] 55894- 0074 Jan, [place] [id number] [place] [address] 63595- 9010 Jan, Obesity E66.9 ; HTN (hypertension) I10 ; 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 ; Major depressive disorder, recurrent, moderate F33.1 ; Glaucoma H40.9 ; Hyperlipidemia E78.5 ; Sleep apnea, obstructive G47.33 ; Chronic pain G89.29 ; Anxiety F41.9 ; Chronic tension headaches G44.229 and Cough R05 [place] [id number] [place] [address] 27657- 0503 Jan, [place] [id number] [place] [address] 81870- 5936 Jan, [place] [address] [place] [address] 68535- 5809 Jan, Post-traumatic stress disorder, unspecified F43.10 ; Obesity E66.9 ; Sleep apnea, obstructive G47.33 and 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 [place] [address] [place] [address] 75187- 2850 Jan, [facility] [id number] [place] [address] 16905- 0081 Jan, Post-traumatic stress disorder, unspecified F43.10 and Major depressive disorder, recurrent, moderate F33.1 [facility] [address] 53190- 3810 Dec, [facility] [address] 96708- 6010 Dec, Sleep apnea, obstructive G47.33 ; Obesity E66.9 ; Hyperlipidemia E78.5 ; Glaucoma H40.9 ; Chronic pain G89.29 ; HTN (hypertension ) I10 ; 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 ; Anxiety F41.9 and CAD (coronary artery disease) I25.10 [place] [address] 92890- 6793 Nov, [place] [address] 55518- 7499 Nov, [place] [address] 94972- 7883 Nov, [place] [address] 52265- 0057 Nov, [place] [address] 89581- 3034 Nov, [place] [address] 76456- 6141 Nov, Encounter for immunization Z23 ; Sleep apnea, obstructive G47.33 ; Obesity E66.9 ; Hyperlipidemia E78.5 ; Glaucoma H40.9 ; Chronic pain G89.29 ; Anxiety F41.9 ; Chronic tension headaches G44.229 and HTN (hypertension ) I10 [address] 85672- 7643 Nov, [place] [address] 13813- 7826 Nov, [facility] [address] [place] [address] 22379- 8804 Nov, Dizziness R42 [facility] [id number] [place] [address] 94973- 9737 Nov, [facility] [id number] [place] [address] 33468- 5675 Oct, [facility] [id number] [place] [address] 08133- 8634 Oct, [facility] [id number] [place] [address] 43324- 3223 Oct, [facility] [id number] [place] [address] 06909- 8016 Oct, [facility] [id number] [place] [address] 28310- 4980 Oct, Dizziness 780.4 ; Essential hypertension 401.9 ; Obesity 278.00 ; Hyperlipidemia 272.4 ; Chronic pain 338.29 ; Glaucoma 365.9 and Anxiety 300.00 [facility] [id number] [place] [address] 25707- 6436 Oct, Essential hypertension 401.9 ; Hyperlipidemia 272.4 ; Glaucoma 365.9 ; Obesity 278.00 ; Chronic pain 338.29 and Allergy to insects V15.06 [facility] [address] [place] [address] 75962- 8790 Sep, [facility] [id number] [place] [address] 15014- 7230 Sep, [facility] [id number] [place] [address] 66740- 6121 Sep, [facility] [id number] [place] [address] 72729- 1239 Sep, [facility] [id number] [place] [address] 87842- 9021 Aug, Essential hypertension 401.9 ; Obesity 278.00 ; Hyperlipidemia 272.4 ; Glaucoma 365.9 ; Lipoma 214.9 ; Mitral valve prolapse 424.0 ; Angina at rest 413.9 ; Lymphedema 457.1 and Chronic pain 338.29 IMMUNIZATIONS No Known Immunizations SOCIAL HISTORY Never Assessed REASON FOR VISIT Lab (walk-in) PLAN OF CARE Activity Details Pending Test CMP Pending Test CBC w/MANUAL DIFF Pending Test UA W/ MICROSCOPY VITAL SIGNS MEDICATIONS Unknown Medications RESULTS No Results PROCEDURES Procedure Date Ordered Result Body Site LAB NOT BILLED BY [email or web address] Dec 29, 2017 [email or web address], ROUTINE* Dec 29, 2017 INSTRUCTIONS MEDICATIONS ADMINISTERED No Known Medications [...]
--- OUTSIDE RECORDS SUMMARY | 2018-02-04 13:58 | XMS REPORT ---
Author Author MARYANA VARGAS [facility] Address [address] [place] [address] Care Team Providers Care Adolescent Counselor Name Role Phone MARYANA VARGAS Unavailable PROBLEMS Type Condition ICD9-CM Code VOJ43-DR Code Onset Dates Condition Status SNOMED Code Problem Hyperlipidemia E78.5 Active 26801582 Problem Sleep apnea, obstructive G47.33 Active 71559370 Problem Primary insomnia F51.01 Active 9157695 Problem Chronic pain G89.29 Active 17291202 Problem Morbid (severe) obesity due to excess calories E66.01 Active 987993194 Problem Myocarditis, unspecified chronicity, 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 Active 85163765 Problem Other male erectile dysfunction N52.8 Active 699608900 Problem 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 Active 080271165 Problem Body mass index (BMI) of 40.0-44.9 in adult Z68.41 Active 084026372 Problem Supraventricular tachycardia I47.1 Active 4554131 Problem Insomnia disorder with non-sleep disorder mental comorbidity G47.00 Active 37333283 Problem Chronic tension headaches G44.229 Active 590733990 Problem HTN (hypertension) I10 Active 54591194 Problem 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 Active 121550460 Problem Chronic pain syndrome G89.4 Active 542583430 Problem Migraine without aura and without status migrainosus, not intractable G43.009 Active 620848744 Problem Sarcoidosis D86.9 Active 76449647 Problem Problems related to release from fdc Z65.2 Active 343124220666012 Problem 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 Active 50055599 Problem Mitral valve prolapse I34.1 Active 622833425 Problem Anxiety F41.9 Active 04250512 Problem Major depressive disorder, recurrent, moderate F33.1 Active 52796903 Problem Environmental allergies Z91.09 Active 981295517 Problem Arrhythmia as indication for cardiac pacemaker replacement I49.9 Active 33866096 Problem CAD (coronary artery disease) I25.10 Active 89944785 Problem Post-traumatic stress disorder, chronic F43.12 Active 033673127 ALLERGIES Substance Reaction Event Type Date Status [...] Dec, Active ENCOUNTERS Encounter Location Date Diagnosis [facility] [address] [address] Jan, [place] [address] [address] Jan, [place] [address] [address] Dec, Encounter for long-term (current) use of other medications Z79.899 [facility] [address] [address] Dec, [facility] [address] [address] Dec, Tooth pain K08.89 ; Active dental caries K02.9 and BMI 40.0 -44.9, adult Z68.41 [facility] [address] [address] Dec, Acute bronchitis J20.9 and BMI 40.0-44.9, adult Z68.41 [facility] [address] [address]- [address] Dec, [facility] [address] [address] Dec, [facility] [address] [address]- [address] Dec, [place] [address] [address] Dec, [facility] [address] [place] [id number] [place] [address] 01132- 5983 Nov, [facility] [id number] [place] [address] 38478- 1296 Nov, Left leg pain M79.[address] [place] [address] [facility] [address] [id number] [id number] Nov, [facility] [address] [place] [id number] [place] [address] 41073- 6105 Nov, Encounter for long-term (current) use of other medications Z79.899 [facility] [address] [place] [id number] [place] [address] 20307- 6732 Nov, [facility] [address] [place] [id number] [place] [address] 56197- 5028 Nov, Left leg pain M79.605 [facility] [address] [place] [id number] [place] [id number] Oct, Dental examination Z01.20 [place] [address] [place] [id number] [place] [address] 45159- 6353 Oct, Insomnia disorder with non-sleep disorder mental comorbidity G47.00 [place] [address] [place] [id number] [place] [address] 09462- 3226 Oct, Post-traumatic stress disorder, chronic F43.12 ; Insomnia disorder with non-sleep disorder mental comorbidity G47.00 and BMI 40.0-44.9, adult Z68.41 [facility] [address] [place] [id number] [place] [address] 23417- 3544 Oct, [facility] [id number] [place] [address]458 [address]5760 Oct, Insect bite (nonvenomous), left lower leg, initial encounter S80.862A ; Bitten or stung by nonvenomous insect and other nonvenomous arthropods, initial encounter W57.XXXA and BMI 40.0-44.9, adult Z68.41 [place] [address] 09150- 0379 06 Oct, 2017 Left leg pain M79.605 [place] [address] 83088- 6319 04 Oct, 2017 Post-traumatic stress disorder, unspecified F43.10 ; Major depressive disorder, recurrent, moderate F33.1 and Problems related to release from fdc Z65.2 [place] [address] 70435- 7763 2017 Arrhythmia as indication for cardiac pacemaker replacement I49.9 [place] [address] 48838- 4889 22 Sep, 2017 [place] [address] 0[address]67- 0524 20 Sep, 2017 HTN (hypertension) I10 [place] [address] 30401- 7232 17 Sep, 2017 [place] [address] 11368- 3415 16 Sep, 2017 Body mass index (BMI) of 40.0-44.9 in adult Z68.41 ; Chronic pain G89.29 and Supraventricular tachycardia I47.1 [place] [address] 45971- 8187 15 Sep, 2017 [place] [address] 7[address]63- 4011 Sep, Sarcoidosis D86.9 [place] [address] 92163- 1392 Sep, Sarcoidosis D86.9 [place] [address] [place] [id number] [place] [address] 68799- 3959 Sep, [place] [address], [place] [address] Sep, [facility] [address] [address] 2[address] Sep, [facility] [address], [place] [address]- 5[address] Sep, [facility] [address] [place] [id number] [place] [address] 38613- 2163 Sep, Left leg pain M79.605 [facility] [address], [place] [address] 83[address] Sep, HTN (hypertension) I10 [facility] [address] [place] [id number] [place] [address] 66744- 9719 Sep, [facility] [address], [place] [address] 2[address] Sep, Post-traumatic stress disorder, unspecified F43.10 ; Major depressive disorder, recurrent, moderate F33.1 and Problems related to release from fdc Z65.2 [facility] [address], [place] [address] 18[address] Sep, [facility] [address] [address] 7[address] Aug, [facility] [address] [address] 9872 Aug, Sarcoidosis D86.9 [facility] [address] [address]- 5562 Aug, Sarcoidosis D86.9 [facility] [address], [place] [address]- 2857 Aug, HTN (hypertension) I10 [facility] [address], [place] [address]- 7[address] Aug, Post-traumatic stress disorder, unspecified F43.10 ; Major depressive disorder, recurrent, moderate F33.1 and Problems related to release from fdc Z65.2 [facility] [id number] [place] [address] 81062- 8649 11 Aug, 2017 [facility] [address] [place] [id number] [place] [address] 84666- 6876 09 Aug, 2017 Left leg pain M79.605 [place] [address] [place] [id number] [place] [address] 52473- 3613 26 Jul, 2017 Post-traumatic stress disorder, chronic F43.12 ; Anxiety F41.9 ; Problems related to release from fdc Z65.2 and BMI 40.0-44.9, adult Z68.41 [place] [address] [place] [id number] [place] [address] 28637- 6591 20 Jul, 2017 HTN (hypertension) I10 ; Body mass index (BMI) of 40.0-44.9 in adult Z68.41 ; Acute swimmer''s ear of both sides H60.333 and Chronic pain G89.29 [place] [address] [place] [id number] [place] [address] 61028- 0978 19 Jul, 2017 Glaucoma H40.9 [place] [address] [place] [id number] [place] [address] 15308- 3900 14 Jul, 2017 [place] [address] [place] [id number] [place] [address] 76915- 2479 13 Jul, 2017 Sarcoidosis D86.9 [place] [address] [place] [id number] [place] [address] 00109- 0279 12 Jul, 2017 Left leg pain M79.605 [place] [address] [place] [id number] [place] [address] 85199- 9346 12 Jul, 2017 Sarcoidosis D86.9 [place] [address] [place] [id number] [place] [address] 63079- 6834 Jul, Post-traumatic stress disorder, unspecified F43.10 ; Major depressive disorder, recurrent, moderate F33.1 and Problems related to release from fdc Z65.2 [place] [address] [place] [address]- 8204 June, [facility] [address] [place] [id number] [address] June, Sore throat J02.9 and BMI 40.0-44.9, adult Z68.41 [facility] [address] [place] [id number] [address] June, [facility] [address] [place] [id number] [place] [address] 08218- 9724 June, [facility] [address] [place] [id number] [place] [address] 34869- 8300 June, [facility] [address] [place] [id number] [place] [address] 07085- 7516 June, Left leg pain M79.605 [facility] [address] [place] [id number] [place] [address] 18545- 0212 June, Sarcoidosis D86.9 [facility] [address] [place] [id number] [place] [address] 22258- 7113 June, [facility] [address] [place] [id number] [place] [address] 42783- 5221 June, [facility] [address] [place] [id number] [place] [address] 34690- 0126 June, Left leg pain M79.605 [facility] [address] [place] [id number] [place] [address] 62550- 8783 May, [facility] [address] [place] [id number] [address]- 5444 May, [facility] [address] [place] [id number] [place] [address] 87541- 3198 May, [facility] [address], [place] [address]- 2158 May, Left leg pain M79.605 [facility] [address] [place] [id number] [place] [address] 34004- 2815 May, Post-traumatic stress disorder, unspecified F43.10 ; Major depressive disorder, recurrent, moderate F33.1 and Problems related to release from fdc Z65.2 [facility] [address] [place] [id number] [place] [address] 01508- 1382 04 May, 2017 Chronic pain G89.29 ; Anxiety F41.9 ; Chest pain, unspecified type R07.9 and BMI 40.0-44.9, adult Z68.41 [place] [address] [place] [id number] [place] [address] 56388- 9801 30 Apr, 2017 [place] [address] [place] [id number] [place] [address] 25065- 5731 29 Apr, 2017 Left leg pain M79.605 [place] [address] [place] [id number] [place] [address] 10182- 7604 27 Apr, 2017 Post-traumatic stress disorder, unspecified F43.10 ; Problems related to release from fdc Z65.2 ; Anxiety F41.9 and BMI 40.0-44.9 , adult Z68.41 [place] [address] [place] [id number] [place] [address] 51107- 6860 Apr, [place] [address] [place] [id number] [place] [address] 48553- 0893 Apr, Left leg pain M79.605 [place] [address] [place] [id number] [place] [address] 16924- 7748 Apr, Post-traumatic stress disorder, unspecified F43.10 ; Major depressive disorder, recurrent, moderate F33.1 and Problems related to release from fdc Z65.2 [place] [address] [place] [id number] [place] [address] 02923- 1724 Apr, [place] [address] [place] [id number] [place] [address] 13047- 5396 Apr, Chronic pain G89.29 ; 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 ; Morbid (severe) obesity due to excess calories E66.01 ; Anxiety F41.9 and BMI 40.0-44.9, adult Z68.41 [facility] [address] [place] [id number] [place] [address] 94052 -7294 10 Apr, 2017 Sore throat J02.9 and BMI 40.0-44.9, adult Z68.41 [facility] [address] 03454- 3595 02 Apr, 2017 Left leg pain M79.605 [facility] [address] [id number] Mar, Dental examination Z01.20 [place] [address] 73816- 8234 Mar, [facility] [address] 8[address]370 Mar, Cough R05 ; Viral gastroenteritis A08.4 and BMI 40.0-44.9, adult Z68.41 [place] [address] 20510- 3242 Mar, Left leg pain M79.605 [place] [address] 38872- 2102 06 Mar, 2017 Post-traumatic stress disorder, unspecified F43.10 ; Major depressive disorder, recurrent, moderate F33.1 and Problems related to release from fdc Z65.2 [place] [address] 53330- 1504 Feb, Left leg pain M79.605 [place] [address] 23131- 5312 Feb, [place] [address] 65011- 5771 Feb, BMI 40.0-44.9, adult Z68.41 ; Chronic pain syndrome G89.4 ; Migraine without aura and without status migrainosus, not intractable G43.009 ; Mitral valve prolapse I34.1 and 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 [facility] [address] [place] [id number] [place] [address] 33212- 9465 Feb, Post-traumatic stress disorder, chronic F43.12 ; Anxiety F41.9 ; Problems related to release from fdc Z65.2 and BMI 40.0-44.9, adult Z68.41 [facility] [address] 98769- 5989 Feb, Post-traumatic stress disorder, unspecified F43.10 ; Major depressive disorder, recurrent, moderate F33.1 and Problems related to release from fdc Z65.2 [place] [address] 46852- 3699 Feb, Left leg pain M79.605 [place] [address] 32464- 1427 Jan, Post-traumatic stress disorder, unspecified F43.10 ; Major depressive disorder, recurrent, moderate F33.1 and Problems related to release from fdc Z65.2 [place] [address] [place] [id number] [place] [address] 57441- 6935 Jan, [place] [address] 19834- 0487 Jan, [place] [address] [place] [id number] [place] [address] 58669- 3486 Jan, Anxiety F41.9 [facility] [address] [place] [id number] [place] [address] 57323- 7108 Jan, Left leg pain M79.605 [place] [address] [place] [id number] [place] [address] 35314- 8614 Dec, Left leg pain M79.605 [facility] [address] [place] [id number] [place] [address] 37635- 5312 Dec, [place] [address] 52382- 5566 Dec, Post-traumatic stress disorder, unspecified F43.10 ; Major depressive disorder, recurrent, moderate F33.1 and Problems related to release from fdc Z65.2 [place] [address] [place] [id number] [place] [address] 28477- 0710 31 Nov, 2016 Chronic pain G89.29 and Anxiety F41.9 [place] [address] [place] [id number] [place] [address] 82400- 5354 Nov, Chronic pain G89.29 and Anxiety F41.9 [place] [address] 67848- 6114 16 Nov, 2016 Post-traumatic stress disorder, unspecified F43.10 ; Major depressive disorder, recurrent, moderate F33.1 and Problems related to release from fdc Z65.2 [place] [address] [place] [id number] [place] [address] 51793- 5674 09 Nov, 2016 Other abnormal findings in specimens from other organs, systems and tissues R89.8 ; Other male erectile dysfunction N52.8 ; Body mass index (BMI) of 40.0-44.9 in adult Z68.41 and Morbid (severe) obesity due to excess calories E66.01 [place] [address] [place] [id number] [place] [address] 26609- 1035 02 Nov, 2016 Post-traumatic stress disorder, unspecified F43.10 ; Major depressive disorder, recurrent, moderate F33.1 and Problems related to release from fdc Z65.2 [facility] [address] [place] [id number] [place] [address] [id number] Oct, Dental examination Z01.20 [place] [address] [place] [id number] [place] [address] 22644- 3554 Oct, [place] [address] 94646- 5384 Oct, Encounter for immunization Z23 [place] [address] [place] [id number] [place] [address] 39470- 8679 Oct, Chronic pain G89.29 ; Anxiety F41.9 ; Arrhythmia as indication for cardiac pacemaker replacement I49.9 and Glaucoma H40.9 [place] [address] [place] [id number] [place] [address] 79579- 1682 Oct, Anxiety F41.9 ; Post-traumatic stress disorder, chronic F43.12 and Problems related to release from fdc Z65.2 [place] [address] [place] [id number] [place] [address] 07034- 0435 Oct, Post-traumatic stress disorder, unspecified F43.10 ; Major depressive disorder, recurrent, moderate F33.1 and Problems related to release from fdc Z65.2 [place] [address] 00294- 7900 Sep, Chronic pain G89.29 and Anxiety F41.9 [place] [address] [place] [id number] [place] [address] 98634- 7051 Sep, Post-traumatic stress disorder, unspecified F43.10 ; Major depressive disorder, recurrent, moderate F33.1 and Problems related to release from fdc Z65.2 [place] [address] [place] [id number] [place] [address] 84430- 7707 Sep, Post-traumatic stress disorder, unspecified F43.10 ; Major depressive disorder, recurrent, moderate F33.1 and Problems related to release from fdc Z65.2 [place] [address] [place] [id number] [place] [address] 81879- 8203 Sep, Chronic pain G89.29 [place] [address] [place] [id number] [place] [address] 74712- 9188 Aug, Dental caries, unspecified K02.9 [place] [address] 95680- 3550 Aug, Sleep apnea, obstructive G47.33 ; Obesity E66.9 ; Chronic pain G89.29 ; HTN (hypertension) I10 ; Major depressive disorder, recurrent, moderate F33.1 ; Anxiety F41.9 ; Chronic tension headaches G44.229 ; Mitral valve prolapse I34.1 ; Arrhythmia as indication for cardiac pacemaker replacement I49.9 ; Dental caries, unspecified K02.9 ; Primary insomnia F51.01 and Hyperlipidemia E78.5 [facility] [address] [place] [id number] [place] [address] 96744- 3641 Aug, Post-traumatic stress disorder, unspecified F43.10 ; Major depressive disorder, recurrent, moderate F33.1 and Problems related to release from fdc Z65.2 [facility] [address] [place] [id number] [place] [address] 45922- 6405 Aug, Dental examination Z01.20 [facility] [address] [place] [id number] [place] [address] [id number] Aug, Dental examination Z01.20 [facility] [address] [place] [id number] [place] [address] 98616- 4921 Aug, Post-traumatic stress disorder, unspecified F43.10 ; Major depressive disorder, recurrent, moderate F33.1 and Problems related to release from fdc Z65.2 [facility] [address] [place] [id number] [place] [address] 73165- 0010 Aug, Chronic pain G89.29 and Primary insomnia F51.01 [facility] [address] [place] [id number] [place] [address] 87844- 9417 Jul, [facility] [address] [id number] [place] [address] 38736- 7599 Jul, [facility] [address] [place] [id number] [place] [address] 61711- 4993 Jul, Nausea R11.0 [facility] [address] [id number] [place] [address] 03890- 7241 Jul, Arrhythmia as indication for cardiac pacemaker replacement I49.9 [facility] [address] [place] [id number] [place] [address] 11387- 4662 Jul, Post-traumatic stress disorder, unspecified F43.10 ; Major depressive disorder, recurrent, moderate F33.1 and Problems related to release from fdc Z65.2 [place] [id number] [place] [address] 88737- 1310 09 Jul, 2016 Anxiety F41.9 [place] [address] [place] [id number] [place] [address] 82008- 1594 08 Jul, 2016 Chronic pain G89.29 [place] [address] [place] [id number] [place] [address] 35887- 5936 02 Jul, 2016 Sleep apnea, obstructive G47.33 ; Hyperlipidemia E78.5 ; Chronic pain G89.29 ; 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 ; Major depressive disorder, recurrent, moderate F33.1 ; Anxiety F41.9 ; Mitral valve prolapse I34.1 ; Arrhythmia as indication for cardiac pacemaker replacement I49.9 ; Primary insomnia F51.01 ; Bilateral headaches R51 and Environmental allergies Z91.09 [place] [address] [place] [id number] [place] [address] 02646- 8805 Jul, Post-traumatic stress disorder, unspecified F43.10 ; Major depressive disorder, recurrent, moderate F33.1 and Problems related to release from fdc Z65.2 [place] [address] [place] [id number] [place] [address] 29393- 7284 June, Post-traumatic stress disorder, chronic F43.12 ; Anxiety F41.9 ; Problems related to release from fdc Z65.2 ; Sleep apnea, obstructive G47.33 and Primary insomnia F51.01 [place] [address] [place] [id number] [place] [address] 77351- 4945 June, [place] [address] [place] [id number] [place] [address] 80061- 6098 June, [place] [address] [id number] [place] [address] 42791- 6088 June, [place] [address] [place] [id number] [place] [address] 75710- 5166 June, Chronic pain G89.29 [place] [address] [place] [id number] [place] [address] 98416- 3318 June, Chronic pain G89.29 [place] [id number] [place] [address] 85270- 4793 June, Lipoma of left lower extremity D17.24 ; Open wound T14.8 and Swelling of left lower extremity M79.89 [place] [address] [place] [id number] [place] [address] 61590- 4900 June, Post-traumatic stress disorder, unspecified F43.10 ; Major depressive disorder, recurrent, moderate F33.1 and Problems related to release from fdc Z65.2 [place] [address] [place] [id number] [place] [address] 85769- 4232 May, Lipoma of left lower extremity D17.24 ; Major depressive disorder, recurrent, moderate F33.1 ; Sleep apnea, obstructive G47.33 ; Hyperlipidemia E78.5 ; Obesity E66.9 ; HTN (hypertension) I10 ; Glaucoma H40.9 ; CAD (coronary artery disease) I25.10 ; Chronic tension headaches G44.229 ; Chronic pain G89.29 ; Anxiety F41.9 ; Nausea R11.0 and Primary insomnia F51.01 [place] [address] [place] [id number] [place] [address] 50373- 0591 May, [place] [address] [place] [id number] [place] [address] 61119- 4650 May, Chronic pain G89.29 [place] [address] [place] [id number] [place] [address] 23214- 1269 May, [place] [address] [place] [id number] [place] [address] 20984- 5798 Apr, Post-traumatic stress disorder, unspecified F43.10 ; Major depressive disorder, recurrent, moderate F33.1 and Problems related to release from fdc Z65.2 [place] [id number] [place] [address] 87973- 8913 Apr, Primary insomnia F51.01 ; Post-traumatic stress disorder, chronic F43.12 and Problems related to release from fdc Z65.2 [place] [id number] [address] 17 Apr, 2016 Post-traumatic stress disorder, unspecified F43.10 ; Major depressive disorder, recurrent, moderate F33.1 and Problems related to release from fdc Z65.2 [place] [id number] [place] [address] 95047- 9511 16 Apr, 2016 [place] [id number] [place] [address] 79003- 3304 16 Apr, 2016 Sleep apnea, obstructive G47.33 ; Chronic pain G89.29 ; HTN (hypertension) I10 ; Mitral valve prolapse I34.1 ; Shoulder pain, left M25.512 ; Arrhythmia as indication for cardiac pacemaker replacement I49.9 ; Glaucoma H40.9 ; Bilateral headaches R51 ; Environmental allergies Z91.09 ; Primary insomnia F51.01 and Nausea R11.0 [id number] [place] [address] 59207- 3392 15 Apr, 2016 [place] [id number] [place] [address] 46624- 4334 15 Apr, 2016 [id number] [place] [address] 24099- 7928 Apr, Post-traumatic stress disorder, unspecified F43.10 ; Major depressive disorder, recurrent, moderate F33.1 and Problems related to release from fdc Z65.2 [facility] [facility] [id number] [place] [address] 44566- 6990 07 Apr, 2016 HTN (hypertension) I10 [facility] [facility] [id number] [place] [address] 40424- 5106 Apr, HTN (hypertension) I10 [id number] [place] [address] 48965- 5370 14 Mar, 2016 Chronic pain G89.29 ; Primary insomnia F51.01 and Problems related to release from fdc Z65.2 [facility] [facility] [id number] [place] [address] 49964- 3846 Mar, Post-traumatic stress disorder, unspecified F43.10 ; Major depressive disorder, recurrent, moderate F33.1 and Problems related to release from fdc Z65.2 [facility] [id number] [place] [address] 83260- 6694 Feb, Post-traumatic stress disorder, unspecified F43.10 ; Major depressive disorder, recurrent, moderate F33.1 and Problems related to release from fdc Z65.2 [place] [address] 60518- 2054 Feb, Chronic tension headaches G44.[address] 15755- 8829 Feb, Sleep apnea, obstructive G47.33 ; Obesity E66.9 ; Hyperlipidemia E78.5 ; Glaucoma H40.9 ; Chronic pain G89.29 ; HTN (hypertension ) I10 ; 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 ; 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 ; Chronic tension headaches G44.229 ; Cough R05 ; CAD (coronary artery disease) I25.10 ; Problems related to release from fdc Z65.2 ; Arrhythmia as indication for cardiac pacemaker replacement I49.9 and Primary insomnia F51.01 [place] [facility] [id number] [place] [address] 59842- 4341 Feb, Post-traumatic stress disorder, unspecified F43.10 and Chronic pain G89.29 [facility] [facility] [id number] [place] [address] 27455- 1356 Feb, [facility] [id number] [place] [address] [id number] Feb, Dental caries K02.9 [place] [address] 97685- 5475 Feb, [place] [address] 93625- 1766 Feb, Post-traumatic stress disorder, unspecified F43.10 ; Major depressive disorder, recurrent, moderate F33.1 and Problems related to release from fdc Z65.2 [place] [address] [address] [address] 9227 Jan, Sleep apnea, obstructive G47.33 and Chronic pain G89.29 [place] [address] [address]- 9562 Jan, [facility] [facility] [id number] [place] [address] 30149- 9481 14 Jan, 2016 Dental examination Z01.20 [facility] [facility] [id number] [place] [address] 25166- 4872 09 Jan, 2016 [place] [id number] [place] [address] 74324- 2894 Jan, [place] [id number] [place] [address] 60673- 8087 Dec, Post-traumatic stress disorder, unspecified F43.10 ; Major depressive disorder, recurrent, moderate F33.1 and Problems related to release from fdc Z65.2 [place] [address], [place] [address]- 8893 29 Dec, 2015 Encounter for immunization Z23 ; Problems related to release from fdc Z65.2 ; Sleep apnea, obstructive G47.33 and Post-traumatic stress disorder, chronic F43.12 [place] [address], [place] [address] 9220 18 Dec, 2015 Sleep apnea, obstructive G47.33 ; Hyperlipidemia E78.5 ; Chronic pain G89.29 ; Glaucoma H40.9 ; HTN (hypertension) I10 ; Post-traumatic stress disorder, unspecified F43.10 ; Anxiety F41.9 ; Chronic tension headaches G44.229 ; Mitral valve prolapse I34.1 and CAD (coronary artery disease) I25.10 [place] [address], [place] [address]- 8527 15 Dec, 2015 Post-traumatic stress disorder, unspecified F43.10 ; Major depressive disorder, recurrent, moderate F33.1 and Problems related to release from fdc Z65.2 [facility] [address], [place] [address]- 4254 Nov, Chronic pain G89.29 [facility] [id number] [place] [address] 12941- 2398 Nov, Post-traumatic stress disorder, unspecified F43.10 ; Major depressive disorder, recurrent, moderate F33.1 and Problems related to release from fdc Z65.2 [facility] [address], [place] [address]- 9198 Oct, [facility] [id number] [place] [address] 72550- 8214 Oct, [facility] [id number] [place] [address] 78102- 4184 Oct, Post-traumatic stress disorder, unspecified F43.10 ; Major depressive disorder, recurrent, moderate F33.1 and Problems related to release from fdc Z65.2 [place] [id number] [place] [address] 29441- 5763 08 Oct, 2015 [place] [id number] [place] [address] 59668- 9441 07 Oct, 2015 Environmental allergies Z91.09 ; Cough R05 and 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 [place] [address], [place] [address]- 0221 Sep, [facility] [facility] [id number] [place] [address] 51130- 7622 Sep, Post-traumatic stress disorder, unspecified F43.10 ; Major depressive disorder, recurrent, moderate F33.1 and Problems related to release from fdc Z65.2 [facility] [id number] [place] [address] 12974- 1723 Sep, Chronic pain G89.29 [facility] [id number] [place] [address] 93033- 6031 Sep, Pain in left shoulder M25.512 ; Pain in right shoulder M25.511 and Other chronic pain G89.29 [facility] [id number] [place] [address] 29715- 3246 Sep, [facility] [id number] [place] [address] 23705- 2939 Sep, [facility] [id number] [place] [address] 24415- 2684 Sep, [facility] [id number] [place] [address] [id number] Aug, Dental examination Z01.20 [place] [address] 84625- 7532 Aug, Post-traumatic stress disorder, unspecified F43.10 ; Open- angle glaucoma of both 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 and Problems related to release from fdc Z65.2 [place] [address] 51562- 1102 Aug, [facility] [id number] [place] [address] 48994- 7480 Aug, Sleep apnea, obstructive G47.33 ; Obesity E66.9 ; Hyperlipidemia E78.5 ; Bilateral headaches R51 ; HTN (hypertension) I10 ; Post- traumatic stress disorder, unspecified F43.10 ; Anxiety F41.9 ; Neuropathy G62.9 ; Glaucoma H40.9 and Chronic pain G89.29 [facility] [id number] [place] [address] [id number] Aug, Encounter for dental examination Z01.20 [facility] [id number] [place] [address] 41074- 1170 Aug, Post-traumatic stress disorder, unspecified F43.10 ; Major depressive disorder, recurrent, moderate F33.1 and Problems related to release from fdc Z65.2 [facility] [facility] [id number] [place] [address] 21364- 5361 Aug, [place] [facility] [id number], [place] [address]- 6630 Jul, [facility] [id number], [place] [address]- 0518 Jul, Post-traumatic stress disorder, unspecified F43.10 and Major depressive disorder, recurrent, moderate F33.1 [facility] [address], [place] [address]- 4533 Jul, [facility] [id number], [place] [address]- 9578 Jul, [facility] [id number] [place] [address] 74897- 4297 Jul, Chronic pain G89.29 [facility] [address], [place] [address]- 6238 June, Post-traumatic stress disorder, unspecified F43.10 and Major depressive disorder, recurrent, moderate F33.1 [facility] [address], [place] [address]- 4052 June, [facility] [address], [place] [address]- 1463 June, Chronic pain G89.29 [facility] [id number], [place] [address]- 2617 June, Post-traumatic stress disorder, unspecified F43.10 and Major depressive disorder, recurrent, moderate F33.1 [facility] [id number], [place] [address]- 5049 May, Post-traumatic stress disorder, unspecified F43.10 and Major depressive disorder, recurrent, moderate F33.1 [facility] [id number], [place] [address]- 1316 May, [facility] [id number], [place] [address]- 9119 May, [facility] [id number] [address]- 0813 05 May, 2015 [facility] [id number] [place] [address] 58211- 5061 Apr, [facility] [id number] [place] [address] 11621- 8562 Apr, Post-traumatic stress disorder, unspecified F43.10 and Sleep apnea, obstructive G47.33 [facility] [id number] [place] [address] 80079- 5995 Apr, [facility] [id number] [place] [address] 68968- 8059 Apr, Shoulder pain, left M25.512 [facility] [id number] [place] [address] 42265- 4996 Apr, Post-traumatic stress disorder, unspecified F43.10 and Major depressive disorder, recurrent, moderate F33.1 [facility] [address], [place] [address]- 8759 17 Apr, 2015 [facility] [id number] [place] [address] 46828- 7183 Apr, [facility] [id number] [address]- 3914 08 Apr, 2015 [facility] [id number] [place] [address] 07506- 9549 Apr, Left shoulder pain M25.512 [facility] [address], [place] [address]- 7027 Mar, [facility] [id number] [place] [address] 49121- 5234 Mar, [facility] [address], [place] [address]- 1532 Mar, [facility] [id number] [place] [address] 71880- 4456 Mar, Sleep apnea, obstructive G47.33 ; Obesity E66.9 ; Chronic pain G89.29 ; Hyperlipidemia E78.5 ; HTN (hypertension) I10 ; 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 ; Major depressive disorder, recurrent, moderate F33.1 and Anxiety F41.9 [address] [address] [id number] [place] [address] 73214- 3441 Mar, [place] [address] 03215- 2372 Mar, Post-traumatic stress disorder, unspecified F43.10 and Major depressive disorder, recurrent, moderate F33.1 [place] [address] 031432- 9915 Mar, [facility] [id number] [place] [address] 35898- 8977 04 Mar, 2015 HTN (hypertension) I10 ; 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 ; Obesity E66.9 ; Hyperlipidemia E78.5 ; Glaucoma H40.9 ; Chronic pain G89.29 and CAD (coronary artery disease) I25.10 [facility] [facility] [id number] [place] [address] 24268- 7101 Feb, [facility] [id number] [place] [address] 19030- 7082 Feb, Post-traumatic stress disorder, unspecified F43.10 ; Obesity E66.9 ; Sleep apnea, obstructive G47.33 and 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 [facility] [id number] [place] [address] 96085- 2688 Feb, Post-traumatic stress disorder, unspecified F43.10 and Major depressive disorder, recurrent, moderate F33.1 [place] [id number] [place] [address] 41690- 1796 Feb, [facility] [id number] [place] [address] 42753- 8652 Feb, [facility] [facility] [id number] [place] [address] 55139- 8132 Feb, HTN (hypertension) I10 ; Post-traumatic stress disorder, unspecified F43.10 ; 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 ; Obesity E66.9 ; Hyperlipidemia E78.5 ; Chronic pain G89.29 ; Glaucoma H40.9 ; Mitral valve prolapse I34.1 and Bilateral headaches R51 [id number] [place] [address] 96418- 4211 Feb, [id number] [place] [address] 30391- 3158 Feb, Post-traumatic stress disorder, unspecified F43.10 and Major depressive disorder, recurrent, moderate F33.1 [id number] [place] [address] 03955- 0519 Feb, [address] 37246- 5829 Feb, [id number] [place] [address] 91640- 4335 Jan, [id number] [place] [address] 29136- 9066 Jan, [id number] [place] [address] 07709- 4261 Jan, Obesity E66.9 ; HTN (hypertension) I10 ; 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 ; Major depressive disorder, recurrent, moderate F33.1 ; Glaucoma H40.9 ; Hyperlipidemia E78.5 ; Sleep apnea, obstructive G47.33 ; Chronic pain G89.29 ; Anxiety F41.9 ; Chronic tension headaches G44.229 and Cough R05 [id number] [place] [address] 97250- 3207 Jan, [id number] [place] [address] 91221- 0050 Jan, [id number] [place] [address] 51949- 3705 Jan, Post-traumatic stress disorder, unspecified F43.10 ; Obesity E66.9 ; Sleep apnea, obstructive G47.33 and 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 [facility] [facility] [id number] [place] [id number]- 5281 Jan, [place] [address]3944- 8181 Jan, Post-traumatic stress disorder, unspecified F43.10 and Major depressive disorder, recurrent, moderate F33.1 [place] [address] 207145- 6211 Dec, [place] [address] 754344- 4234 Dec, Sleep apnea, obstructive G47.33 ; Obesity E66.9 ; Hyperlipidemia E78.5 ; Glaucoma H40.9 ; Chronic pain G89.29 ; HTN (hypertension ) I10 ; 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 ; Anxiety F41.9 and CAD (coronary artery disease) I25.10 [place] [address] 35147- 0577 Nov, [place] [address] 58313- 6865 Nov, [place] [address] 71480- 1523 Nov, [place] [address] 77703- 2338 Nov, [address] 78684- 1261 Nov, [address] 55849- 2638 Nov, Encounter for immunization Z23 ; Sleep apnea, obstructive G47.33 ; Obesity E66.9 ; Hyperlipidemia E78.5 ; Glaucoma H40.9 ; Chronic pain G89.29 ; Anxiety F41.9 ; Chronic tension headaches G44.229 and HTN (hypertension ) I10 [facility] [id number] [place] [address] 37794- 7110 Nov, [facility] [id number] [place] [address] 88542- 8688 Nov, [facility] [address] 79575- 8029 Nov, Dizziness R42 [facility] [address] 46711- 7610 Nov, [facility] [address] 42426- 6733 Oct, [facility] [address] 39377- 9402 Oct, [facility] [address] 95136- 6906 Oct, [facility] [id number] [place] [address] 07364- 9314 Oct, [facility] [id number] [place] [address] 89132- 6439 Oct, Dizziness 780.4 ; Essential hypertension 401.9 ; Obesity 278.00 ; Hyperlipidemia 272.4 ; Chronic pain 338.29 ; Glaucoma 365.9 and Anxiety 300.00 [facility] [id number] [place] [address] 59328- 5605 Oct, Essential hypertension 401.9 ; Hyperlipidemia 272.4 ; Glaucoma 365.9 ; Obesity 278.00 ; Chronic pain 338.29 and Allergy to insects V15.06 [facility] [id number] [place] [address] 68684- 1560 Sep, [facility] [address] 20579- 4608 Sep, [facility] [address] 04326- 4626 Sep, [facility] [address] [facility] [id number] [address]- 2546 Sep, [facility] [address] [facility] [id number] [address]- 2546 Aug, Essential hypertension 401.9 ; Obesity 278.00 ; Hyperlipidemia 272.4 ; Glaucoma 365.9 ; Lipoma 214.9 ; Mitral valve prolapse 424.0 ; Angina at rest 413.9 ; Lymphedema 457.1 and Chronic pain 338.29 IMMUNIZATIONS No Known Immunizations SOCIAL HISTORY Never Assessed REASON FOR VISIT dry cough for the past 2 weeks. reports it is worse at noc time. malini pt requesting codeine cough syrup. PLAN OF CARE Activity Details Follow Up if not improving with PCP or reg follow up Reason: VITAL SIGNS Height 67 in 2017-12-23 Weight 272.8 lbs 2017-12-23 Temperature 98.5 degrees Fahrenheit 2017-12-23 Heart Rate 82 bpm 2017-12-23 Respiratory Rate 20 2017-12-23 BMI 42.72 kg/m2 2017-12-23 Blood pressure systolic 142 mmHg 2017-12-23 Blood pressure diastolic 90 mmHg 2017-12-23 MEDICATIONS Medication Instructions Dosage Frequency Start Date End Date Duration Status Methotrexate 2.5 MG 3 tablets once for one week then 4 tablets once for 2 weeks then 6 tablets q7days there after Active Tessalon Perles 100 MG Orally Three times a day 1 capsule as needed 8h Dec, 10 days Active Albuterol Sulfate HFA 108 (90 Base) MCG/ACT Inhalation every 4-6 hours 2 puffs as needed Dec, 30 days Active Nitrostat 0.4 MG Sublingual every 5 minutes x 3 PRN 1 tablet 30 days Active Atorvastatin Calcium 40 MG TAKE ONE TABLET BY MOUTH ONCE DAILY Active Belsomra 10 mg Orally Once a day 1/2 to 1 whole tablet at bedtime as needed for insomnia 24h Oct, Active Topamax 100 MG TAKE ONE TABLET BY MOUTH TWICE DAILY 90 Active Losartan Potassium 100 MG Orally Once a day 1 tablet 24h Active Hydrocodone-Acetaminophen 7.5-325 MG Orally 4 times a day 1 tablet 6h Nov, Active Cartia XT 300 MG Orally Once a day 1 capsule 24h 90 days Active Xanax 1 MG Orally Twice a day for anxiety 1 tablet 30 days Active Folic Acid 1 MG Orally Once a day 1 tablet 24h Active EPINEPHrine 0.3 MG/0.3ML as directed Jul, Active Zofran ODT 4 MG Orally every 8 hrs prn 1 tablet on the tongue and allow to dissolve 10 Active Metoprolol Succinate ER 200 mg Orally Once a day 1 tablet 24h 90 days Active Gabapentin 300 MG Orally Once a day x 3 days then twice daily x 3 days then increase to three times daily 1 capsule Dec, 30 day(s) Active RESULTS No Results PROCEDURES No Known [...]
--- OUTSIDE RECORDS SUMMARY | 2018-02-04 13:59 | XMS REPORT ---
Author Author DALJIT DAMON Organization [facility] Address [address] [place] [address] Care Team Providers Care Buckle Wire Inserter Name Role Phone MARISOLLILIA Unavailable PROBLEMS Type Condition ICD9-CM Code [id number] Code Onset Dates Condition Status SNOMED Code Problem Hyperlipidemia E78.5 Active 14662959 Problem Sleep apnea, obstructive G47.33 Active 88243812 Problem Primary insomnia F51.01 Active 1284674 Problem Chronic pain G89.29 Active 67800460 Problem Morbid (severe) obesity due to excess calories E66.01 Active 334307930 Problem Myocarditis, unspecified chronicity, 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 Active 97947681 Problem Other male erectile dysfunction N52.8 Active 811417245 Problem 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 Active 861010095 Problem Body mass index (BMI) of 40.0-44.9 in adult Z68.41 Active 315812287 Problem Supraventricular tachycardia I47.1 Active 7306965 Problem Insomnia disorder with non-sleep disorder mental comorbidity G47.00 Active 60804357 Problem Chronic tension headaches G44.229 Active 851984589 Problem HTN (hypertension) I10 Active 03554770 Problem 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 Active 657886905 Problem Chronic pain syndrome G89.4 Active 459567667 Problem Migraine without aura and without status migrainosus, not intractable G43.009 Active 623964314 Problem Sarcoidosis D86.9 Active 02152739 Problem Problems related to release from mcc Z65.2 Active 177054127579240 Problem 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 Active 55142960 Problem Mitral valve prolapse I34.1 Active 331725800 Problem Anxiety F41.9 Active 29939385 Problem Major depressive disorder, recurrent, moderate F33.1 Active 97706914 Problem Environmental allergies Z91.09 Active 238029620 Problem Arrhythmia as indication for cardiac pacemaker replacement I49.9 Active 86889268 Problem CAD (coronary artery disease) I25.10 Active 53752982 Problem Post-traumatic stress disorder, chronic F43.12 Active [id number] ALLERGIES No Information ENCOUNTERS Encounter Location Date Diagnosis [facility] [id number] [place] [address] 65035- 9410 Jan, [facility] [id number] [place] [address] 46744- 3736 Jan, [facility] [id number] [place] [address] 57179- 5001 Dec, [facility] [id number] [place] [address] 87778 -7270 Dec, Tooth pain K08.89 ; Active dental caries K02.9 and BMI 40.0 -44.9, adult Z68.41 [facility] [id number] [place] [address] 92706 -8993 15 Dec, 2017 Acute bronchitis J20.9 and BMI 40.0-44.9, adult Z68.41 [facility] [id number] [place] [address] 30577- 9844 15 Dec, 2017 [facility] [id number] [place] [address] 98096- 0000 06 Dec, 2017 [facility] [id number] [place] [address] 44901- 2423 05 Dec, 2017 [facility] [id number] [place] [address] 24397- 6244 Dec, [facility] [id number] [place] [address] 25640- 9648 Nov, [facility] [id number] [place] [address] 28420- 9183 Nov, Left leg pain M79.605 [facility] [address] [id number] [id number] Nov, [facility] [id number] [place] [address] 37670- 4225 Nov, Encounter for long-term (current) use of other medications Z79.899 [facility] [id number] [place] [address] 01018- 4062 Nov, [facility] [id number] [place] [address] 34951- 4883 Nov, Left leg pain M79.605 [facility] [address] [id number] 28 Oct, 2017 Dental examination Z01.20 [facility] [id number] [place] [address] 95810- 0980 Oct, Insomnia disorder with non-sleep disorder mental comorbidity G47.00 [facility] [id number] [place] [address] 81645- 0536 Oct, Post-traumatic stress disorder, chronic F43.12 ; Insomnia disorder with non-sleep disorder mental comorbidity G47.00 and BMI 40.0-44.9, adult Z68.41 [facility] [id number] [place] [address] 45782- 8950 Oct, [facility] [id number] [place] [address] 59030 -3112 Oct, Insect bite (nonvenomous), left lower leg, initial encounter S80.862A ; Bitten or stung by nonvenomous insect and other nonvenomous arthropods, initial encounter W57.XXXA and BMI 40.0-44.9, adult Z68.41 [facility] [id number] [place] [address] 12689- 0867 06 Oct, 2017 Left leg pain M79.605 [facility] [id number] [place] [address] 46185- 8004 04 Oct, 2017 Post-traumatic stress disorder, unspecified F43.10 ; Major depressive disorder, recurrent, moderate F33.1 and Problems related to release from mcc Z65.2 [place] [address] [place] [address]- 3725 Sep, Arrhythmia as indication for cardiac pacemaker replacement I49.9 [facility] [address] 70868- 3109 Sep, [facility] [id number] [place] [address] 02344- 5207 Sep, HTN (hypertension) I10 [facility] [address] 58286- 0004 Sep, [facility] [address] 95074- 0488 16 Sep, 2017 Body mass index (BMI) of 40.0-44.9 in adult Z68.41 ; Chronic pain G89.29 and Supraventricular tachycardia I47.1 [facility] [address] 55338- 0064 Sep, [facility] [address] 28193- 5959 Sep, Sarcoidosis D86.9 [facility] [address] 31983- 8969 Sep, Sarcoidosis D86.9 [facility] [id number] [place] [address] 42169- 9477 Sep, [facility] [id number] [place] [address] 83564- 7670 Sep, [facility] [id number] [place] [address] 98966- 6726 Sep, [facility] [id number] [place] [address] 38327- 1793 Sep, [facility] [id number] [place] [address] 59796- 5047 Sep, Left leg pain M79.605 [facility] [id number] [place] [address] 29921- 4593 Sep, HTN (hypertension) I10 [facility] [address] [address] 9455 Sep, [facility] [id number] [place] [address] 67078- 5788 Sep, Post-traumatic stress disorder, unspecified F43.10 ; Major depressive disorder, recurrent, moderate F33.1 and Problems related to release from mcc Z65.2 [facility] [id number] [place] [address] 83841- 7220 Sep, [facility] [id number] [place] [address] 31651- 0089 Aug, [facility] [id number] [place] [address] 17188- 6377 Aug, Sarcoidosis D86.9 [facility] [id number] [place] [address] 87687- 5932 Aug, Sarcoidosis D86.9 [facility] [id number] [place] [address] 30807- 6178 Aug, HTN (hypertension) I10 [facility] [id number] [place] [address] 46532- 3134 Aug, Post-traumatic stress disorder, unspecified F43.10 ; Major depressive disorder, recurrent, moderate F33.1 and Problems related to release from mcc Z65.2 [facility] [id number] [place] [address] 95177- 9775 Aug, [facility] [id number] [place] [address] 90900- 4377 Aug, Left leg pain M79.605 [facility] [id number] [place] [address] 81744- 5655 Jul, Post-traumatic stress disorder, chronic F43.12 ; Anxiety F41.9 ; Problems related to release from mcc Z65.2 and BMI 40.0-44.9, adult Z68.41 [facility] [id number] [place] [address] 42822- 3407 Jul, HTN (hypertension) I10 ; Body mass index (BMI) of 40.0-44.9 in adult Z68.41 ; Acute swimmer''s ear of both sides H60.333 and Chronic pain G89.29 [facility] [id number] [place] [address] 17874- 4325 Jul, Glaucoma H40.9 [facility] [address] 73112- 8555 Jul, [facility] [address] 22559- 3128 Jul, Sarcoidosis D86.9 [facility] [id number] [place] [address] 38359- 9112 12 Jul, 2017 Left leg pain M79.605 [facility] [address] 06775- 0297 Jul, Sarcoidosis D86.9 [facility] [id number] [place] [address] 35016- 8374 Jul, Post-traumatic stress disorder, unspecified F43.10 ; Major depressive disorder, recurrent, moderate F33.1 and Problems related to release from mcc Z65.2 [facility] [id number] [place] [address] 37066- 6173 June, [facility] [id number] [place] [address] 87950 -0413 June, Sore throat J02.9 and BMI 40.0-44.9, adult Z68.41 [facility] [address] 73197- 9014 June, [facility] [id number] [place] [address] 91565- 1320 June, [facility] [address] 36348- 7831 June, [facility] [address] [address]- 7827 June, Left leg pain M79.605 [facility] [id number] [place] [address] 40890- 5427 June, Sarcoidosis D86.9 [facility] [id number] [place] [address] 90477- 3319 June, [facility] [id number] [place] [address] 02047- 1531 June, [facility] [id number] [place] [address] 39301- 9504 June, Left leg pain M79.605 [facility] [id number] [place] [address] 39272- 7421 May, [facility] [id number] [place] [address] 46107- 7136 May, [facility] [id number] [place] [address] 57143- 2491 May, [facility] [id number] [place] [address] 98929- 2040 May, Left leg pain M79.605 [facility] [id number] [place] [address] 14501- 8019 May, Post-traumatic stress disorder, unspecified F43.10 ; Major depressive disorder, recurrent, moderate F33.1 and Problems related to release from mcc Z65.2 [facility] [id number] [place] [address] 89378- 6454 May, Chronic pain G89.29 ; Anxiety F41.9 ; Chest pain, unspecified type R07.9 and BMI 40.0-44.9, adult Z68.41 [facility] [address] [address]- 4661 Apr, [facility] [id number] [place] [address] 48596- 8475 Apr, Left leg pain M79.605 [facility] [address] 49547- 1985 27 Apr, 2017 Post-traumatic stress disorder, unspecified F43.10 ; Problems related to release from mcc Z65.2 ; Anxiety F41.9 and BMI 40.0-44.9 , adult Z68.41 [facility] [address] 97324- 4035 Apr, [facility] [address] 24673- 1329 Apr, Left leg pain M79.605 [facility] [address] 90879- 2736 13 Apr, 2017 Post-traumatic stress disorder, unspecified F43.10 ; Major depressive disorder, recurrent, moderate F33.1 and Problems related to release from mcc Z65.2 [facility] [id number] [place] [address] 95644- 0647 Apr, [facility] [address] 72136- 2424 12 Apr, 2017 Chronic pain G89.29 ; 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 ; Morbid (severe) obesity due to excess calories E66.01 ; Anxiety F41.9 and BMI 40.0-44.9, adult Z68.41 [facility] [id number] [place] [address] 45093 -2183 10 Apr, 2017 Sore throat J02.9 and BMI 40.0-44.9, adult Z68.41 [facility] [id number] [place] [address] 70326- 5807 02 Apr, 2017 Left leg pain M79.605 [facility] [id number] [place] [address] [id number] Mar, Dental examination Z01.20 [facility] [id number] [place] [address] 22537- 6172 Mar, [facility] [address] 39686 -8988 Mar, Cough R05 ; Viral gastroenteritis A08.4 and BMI 40.0-44.9, adult Z68.41 [facility] [facility] [address] 63071- 7225 Mar, Left leg pain M79.605 [facility] [address] 33072- 1708 Mar, Post-traumatic stress disorder, unspecified F43.10 ; Major depressive disorder, recurrent, moderate F33.1 and Problems related to release from mcc Z65.2 [facility] [address] 64092- 3208 Feb, Left leg pain M79.605 [facility] [address] 73955- 4860 Feb, [facility] [address] 64249- 8870 Feb, BMI 40.0-44.9, adult Z68.41 ; Chronic pain syndrome G89.4 ; Migraine without aura and without status migrainosus, not intractable G43.009 ; Mitral valve prolapse I34.1 and 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 [facility] [id number] [place] [address] 47803- 9783 Feb, Post-traumatic stress disorder, chronic F43.12 ; Anxiety F41.9 ; Problems related to release from mcc Z65.2 and BMI 40.0-44.9, adult Z68.41 [facility] [address] 62837- 0078 Feb, Post-traumatic stress disorder, unspecified F43.10 ; Major depressive disorder, recurrent, moderate F33.1 and Problems related to release from mcc Z65.2 [facility] [address] [address]- 4496 Feb, Left leg pain M79.605 [facility] [id number] [place] [address] 68753- 1656 27 Jan, 2017 Post-traumatic stress disorder, unspecified F43.10 ; Major depressive disorder, recurrent, moderate F33.1 and Problems related to release from mcc Z65.2 [facility] [id number] [place] [address] 82773- 4342 Jan, [facility] [id number] [place] [address] 38911- 5370 Jan, [facility] [id number] [place] [address] 73240- 5036 Jan, Anxiety F41.9 [facility] [id number] [place] [address] 61128- 8591 Jan, Left leg pain M79.605 [facility] [id number] [place] [address] 59012- 3487 Dec, Left leg pain M79.605 [facility] [id number] [place] [address] 31391- 5596 Dec, [facility] [id number] [place] [address] 17265- 0560 15 Dec, 2016 Post-traumatic stress disorder, unspecified F43.10 ; Major depressive disorder, recurrent, moderate F33.1 and Problems related to release from mcc Z65.2 [facility] [address] [place] [address] 99427- 0202 Nov, Chronic pain G89.29 and Anxiety F41.9 [facility] [id number] [place] [address] 02451- 8429 24 Nov, 2016 Chronic pain G89.29 and Anxiety F41.9 [facility] [id number] [place] [address] 20664- 6157 16 Nov, 2016 Post-traumatic stress disorder, unspecified F43.10 ; Major depressive disorder, recurrent, moderate F33.1 and Problems related to release from mcc Z65.2 [facility] [id number] [place] [address] 07259- 0724 09 Nov, 2016 Other abnormal findings in specimens from other organs, systems and tissues R89.8 ; Other male erectile dysfunction N52.8 ; Body mass index (BMI) of 40.0-44.9 in adult Z68.41 and Morbid (severe) obesity due to excess calories E66.01 [facility] [id number] [place] [address] 65595- 9783 02 Nov, 2016 Post-traumatic stress disorder, unspecified F43.10 ; Major depressive disorder, recurrent, moderate F33.1 and Problems related to release from mcc Z65.2 [facility] [id number] [place] [address] [id number] 29 Oct, 2016 Dental examination Z01.20 [facility] [id number] [place] [address] 63611- 0860 Oct, [facility] [id number] [place] [address] 25861- 2490 Oct, Encounter for immunization Z23 [facility] [id number] [place] [address] 94922- 4479 Oct, Chronic pain G89.29 ; Anxiety F41.9 ; Arrhythmia as indication for cardiac pacemaker replacement I49.9 and Glaucoma H40.9 [facility] [id number] [place] [address] 56556- 8012 Oct, Anxiety F41.9 ; Post-traumatic stress disorder, chronic F43.12 and Problems related to release from mcc Z65.2 [facility] [id number] [place] [address] 79841- 9923 07 Oct, 2016 Post-traumatic stress disorder, unspecified F43.10 ; Major depressive disorder, recurrent, moderate F33.1 and Problems related to release from mcc Z65.2 [facility] [address] [address]- 5202 Sep, Chronic pain G89.29 and Anxiety F41.9 [id number] [place] [address] 46532- 5704 Sep, Post-traumatic stress disorder, unspecified F43.10 ; Major depressive disorder, recurrent, moderate F33.1 and Problems related to release from mcc Z65.2 [id number] [place] [address] 74681- 7611 Sep, Post-traumatic stress disorder, unspecified F43.10 ; Major depressive disorder, recurrent, moderate F33.1 and Problems related to release from mcc Z65.2 [place] [id number] [place] [address] 87653- 5475 Sep, Chronic pain G89.29 [place] [id number] [place] [address] 31902- 3904 Aug, Dental caries, unspecified K02.[address] [place] [address] 70901- 6678 Aug, Sleep apnea, obstructive G47.33 ; Obesity E66.9 ; Chronic pain G89.29 ; HTN (hypertension) I10 ; Major depressive disorder, recurrent, moderate F33.1 ; Anxiety F41.9 ; Chronic tension headaches G44.229 ; Mitral valve prolapse I34.1 ; Arrhythmia as indication for cardiac pacemaker replacement I49.9 ; Dental caries, unspecified K02.9 ; Primary insomnia F51.01 and Hyperlipidemia E78.[address] [place] [address] 67015- 0677 Aug, Post-traumatic stress disorder, unspecified F43.10 ; Major depressive disorder, recurrent, moderate F33.1 and Problems related to release from mcc Z65.2 [address] [place] [address] 15126- 9571 Aug, Dental examination Z01.20 [facility] [id number] [place] [address] [id number] Aug, Dental examination Z01.20 [facility] [id number] [place] [address] 66296- 7884 06 Aug, 2016 Post-traumatic stress disorder, unspecified F43.10 ; Major depressive disorder, recurrent, moderate F33.1 and Problems related to release from mcc Z65.2 [facility] [id number] [place] [address] 10572- 2229 Aug, Chronic pain G89.29 and Primary insomnia F51.01 [facility] [id number] [place] [address] 35114- 2806 Jul, [facility] [id number] [place] [address] 63877- 2726 Jul, [facility] [id number] [place] [address] 66342- 3191 Jul, Nausea R11.0 [facility] [id number] [place] [address] 28444- 5762 Jul, Arrhythmia as indication for cardiac pacemaker replacement I49.9 [facility] [id number] [place] [address] 53398- 1949 Jul, Post-traumatic stress disorder, unspecified F43.10 ; Major depressive disorder, recurrent, moderate F33.1 and Problems related to release from mcc Z65.2 [facility] [id number] [place] [address] 52721- 6474 09 Jul, 2016 Anxiety F41.9 [facility] [id number] [place] [address] 10842- 5558 08 Jul, 2016 Chronic pain G89.29 [place] [id number] [place] [address] 08808- 3924 Jul, Sleep apnea, obstructive G47.33 ; Hyperlipidemia E78.5 ; Chronic pain G89.29 ; 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 ; Major depressive disorder, recurrent, moderate F33.1 ; Anxiety F41.9 ; Mitral valve prolapse I34.1 ; Arrhythmia as indication for cardiac pacemaker replacement I49.9 ; Primary insomnia F51.01 ; Bilateral headaches R51 and Environmental allergies Z91.09 [facility] [id number] [place] [address] 17965- 2695 Jul, Post-traumatic stress disorder, unspecified F43.10 ; Major depressive disorder, recurrent, moderate F33.1 and Problems related to release from mcc Z65.2 [place] [address] 12289- 9946 June, Post-traumatic stress disorder, chronic F43.12 ; Anxiety F41.9 ; Problems related to release from mcc Z65.2 ; Sleep apnea, obstructive G47.33 and Primary insomnia F51.01 [facility] [id number] [place] [address] 29373- 4468 June, [facility] [facility] [address] 96209- 6552 June, [facility] [facility] [address] 35972- 6714 June, [place] [facility] [address] 25231- 4278 June, Chronic pain G89.29 [facility] [id number] [place] [address] 93209- 8270 June, Chronic pain G89.29 [facility] [id number] [place] [address] 16666- 3419 June, Lipoma of left lower extremity D17.24 ; Open wound T14.8 and Swelling of left lower extremity M79.[address] 19172- 2979 June, Post-traumatic stress disorder, unspecified F43.10 ; Major depressive disorder, recurrent, moderate F33.1 and Problems related to release from mcc Z65.2 [place] [address] 60642- 5260 May, Lipoma of left lower extremity D17.24 ; Major depressive disorder, recurrent, moderate F33.1 ; Sleep apnea, obstructive G47.33 ; Hyperlipidemia E78.5 ; Obesity E66.9 ; HTN (hypertension) I10 ; Glaucoma H40.9 ; CAD (coronary artery disease) I25.10 ; Chronic tension headaches G44.229 ; Chronic pain G89.29 ; Anxiety F41.9 ; Nausea R11.0 and Primary insomnia F51.[address] [address] May, [address] [address] May, Chronic pain G89.[address] [address] May, [address] [address] 31 Apr, 2016 Post-traumatic stress disorder, unspecified F43.10 ; Major depressive disorder, recurrent, moderate F33.1 and Problems related to release from [facility] Z65.[address] [address] 28 Apr, 2016 Primary insomnia F51.01 ; Post-traumatic stress disorder, chronic F43.12 and Problems related to release from [facility] Z65.[address] [address] 17 Apr, 2016 Post-traumatic stress disorder, unspecified F43.10 ; Major depressive disorder, recurrent, moderate F33.1 and Problems related to release from [facility] Z65.[address] [address] Apr, [address] [address] Apr, Sleep apnea, obstructive G47.33 ; Chronic pain G89.29 ; HTN (hypertension) I10 ; Mitral valve prolapse I34.1 ; Shoulder pain, left M25.512 ; Arrhythmia as indication for cardiac pacemaker replacement I49.9 ; Glaucoma H40.9 ; Bilateral headaches R51 ; Environmental allergies Z91.09 ; Primary insomnia F51.01 and Nausea R11.0 [place] [address] [address] Apr, [place] [address] [place] [id number] [place] [address] 64215- 6767 Apr, [place] [address] [place] [address] [id number] [place] [address] 75318- 2145 Apr, Post-traumatic stress disorder, unspecified F43.10 ; Major depressive disorder, recurrent, moderate F33.1 and Problems related to release from mcc Z65.2 [place] [id number] [place] [address] 34421- 6678 Apr, HTN (hypertension) I10 [place] [address] [place] [id number] [place] [address] 05786- 0614 Apr, HTN (hypertension) I10 [place] [address] [place] [id number] [place] [address] 51250- 3884 14 Mar, 2016 Chronic pain G89.29 ; Primary insomnia F51.01 and Problems related to release from mcc Z65.2 [place] [address] [address] 07 Mar, 2016 Post-traumatic stress disorder, unspecified F43.10 ; Major depressive disorder, recurrent, moderate F33.1 and Problems related to release from mcc Z65.2 [place] [address] [address] Feb, Post-traumatic stress disorder, unspecified F43.10 ; Major depressive disorder, recurrent, moderate F33.1 and Problems related to release from mcc Z65.2 [place] [address], [place] [address] 1581 Feb, Chronic tension headaches G44.229 [place] [address] [place] [id number] [place] [address] 20923- 7584 17 Feb, 2016 Sleep apnea, obstructive G47.33 ; Obesity E66.9 ; Hyperlipidemia E78.5 ; Glaucoma H40.9 ; Chronic pain G89.29 ; HTN (hypertension ) I10 ; 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 ; 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 ; Chronic tension headaches G44.229 ; Cough R05 ; CAD (coronary artery disease) I25.10 ; Problems related to release from mcc Z65.2 ; Arrhythmia as indication for cardiac pacemaker replacement I49.9 and Primary insomnia F51.01 [place] [address] 0[address]72- 8174 17 Feb, 2016 Post-traumatic stress disorder, unspecified F43.10 and Chronic pain G89.[address] 69645- 7093 Feb, [facility] [address] [id number] Feb, Dental caries K02.[address] 25018- 8510 06 Feb, [address] 14679- 6085 Feb, Post-traumatic stress disorder, unspecified F43.10 ; Major depressive disorder, recurrent, moderate F33.1 and Problems related to release from mcc Z65.2 [place] [address] [place] [id number] [place] [address] 24759- 9631 Jan, Sleep apnea, obstructive G47.33 and Chronic pain G89.[address] 75583- 2520 Jan, [address] 60824- 9699 14 Jan, 2016 Dental examination Z01.[address] 29417- 7639 Jan, [place] [address] [address] 2028 Jan, [place] [address] [place] [id number] [place] [address] 16448- 6019 Dec, Post-traumatic stress disorder, unspecified F43.10 ; Major depressive disorder, recurrent, moderate F33.1 and Problems related to release from mcc Z65.2 [place] [id number] [place] [address] 73830- 2400 Dec, Encounter for immunization Z23 ; Problems related to release from mcc Z65.2 ; Sleep apnea, obstructive G47.33 and Post-traumatic stress disorder, chronic F43.12 [place] [id number] [place] [address] 60948- 7742 Dec, Sleep apnea, obstructive G47.33 ; Hyperlipidemia E78.5 ; Chronic pain G89.29 ; Glaucoma H40.9 ; HTN (hypertension) I10 ; Post-traumatic stress disorder, unspecified F43.10 ; Anxiety F41.9 ; Chronic tension headaches G44.229 ; Mitral valve prolapse I34.1 and CAD (coronary artery disease) I25.10 [address] [place] [address] 85725- 3738 Dec, Post-traumatic stress disorder, unspecified F43.10 ; Major depressive disorder, recurrent, moderate F33.1 and Problems related to release from mcc Z65.2 [place] [id number] [place] [address] 64857- 2190 Nov, Chronic pain G89.29 [address] [place] [address] 65408- 0676 Nov, Post-traumatic stress disorder, unspecified F43.10 ; Major depressive disorder, recurrent, moderate F33.1 and Problems related to release from mcc Z65.2 [address] [address] 4687 Oct, [place] [address] [address] 1652 Oct, [facility] [id number] [place] [address] 63923- 0904 Oct, Post-traumatic stress disorder, unspecified F43.10 ; Major depressive disorder, recurrent, moderate F33.1 and Problems related to release from mcc Z65.2 [facility] [address] [place] [id number] [place] [address] 26500- 3124 08 Oct, 2015 [facility] [address] [place] [address] [id number] [place] [address] 49694- 7401 07 Oct, 2015 Environmental allergies Z91.09 ; Cough R05 and 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 [facility] [address] [place] [id number] [place] [address] 94530- 1140 Sep, [facility] [address] [place] [id number] [place] [address] 44352- 1546 Sep, Post-traumatic stress disorder, unspecified F43.10 ; Major depressive disorder, recurrent, moderate F33.1 and Problems related to release from mcc Z65.2 [facility] [address] [place] [address] [id number] [place] [address] 86311- 0203 Sep, Chronic pain G89.29 [facility] [address] [place] [address] [id number] [place] [address] 17588- 4206 Sep, Pain in left shoulder M25.512 ; Pain in right shoulder M25.511 and Other chronic pain G89.29 [facility] [id number] [place] [address] 09452- 8214 Sep, [facility] [address] [place] [id number] [place] [address] 79915- 8169 Sep, [facility] [address] [place] [address] [id number] [place] [address] 16512- 8461 Sep, [facility] [id number] [place] [address] [id number] Aug, Dental examination Z01.20 [facility] [address], [place] [address]- 8263 Aug, Post-traumatic stress disorder, unspecified F43.10 ; Open- angle glaucoma of both 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 and Problems related to release from mcc Z65.2 [facility] [id number] [place] [address] 46476- 0286 Aug, [facility] [address] [place] [address] [id number] [place] [address] 75187- 4805 Aug, Sleep apnea, obstructive G47.33 ; Obesity E66.9 ; Hyperlipidemia E78.5 ; Bilateral headaches R51 ; HTN (hypertension) I10 ; Post- traumatic stress disorder, unspecified F43.10 ; Anxiety F41.9 ; Neuropathy G62.9 ; Glaucoma H40.9 and Chronic pain G89.29 [facility] [id number]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
[2018-02-04] MEDS ORDERED: D-ME118S33 PO (14:00)
[2018-02-04] MEDS ORDERED: AZIT250T12 PO (14:00)
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
--- OUTSIDE RECORDS SUMMARY | 2018-02-04 14:00 | XMS REPORT ---
Author Author ALENA ÁLVAREZ [facility] Address [address] [place] [address] Care Team Providers Care Motor Operator Name Role Phone ALENA ÁLVAREZ Unavailable PROBLEMS Type Condition ICD9-CM Code QGQ59-EQ Code Onset Dates Condition Status SNOMED Code Problem Hyperlipidemia E78.5 Active 37032673 Problem Sleep apnea, obstructive G47.33 Active 88099104 Problem Primary insomnia F51.01 Active 5930187 Problem Chronic pain G89.29 Active 68380395 Problem Morbid (severe) obesity due to excess calories E66.01 Active 185179938 Problem Myocarditis, unspecified chronicity, 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 Active 76338133 Problem Other male erectile dysfunction N52.8 Active 776645576 Problem 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 Active 376632984 Problem Body mass index (BMI) of 40.0-44.9 in adult Z68.41 Active 467930819 Problem Supraventricular tachycardia I47.1 Active 5151688 Problem Insomnia disorder with non-sleep disorder mental comorbidity G47.00 Active 33040644 Problem Chronic tension headaches G44.229 Active 510158240 Problem HTN (hypertension) I10 Active 84733379 Problem 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 Active 576502070 Problem Chronic pain syndrome G89.4 Active 020277717 Problem Migraine without aura and without status migrainosus, not intractable G43.009 Active 844548036 Problem Sarcoidosis D86.9 Active 49143567 Problem Problems related to release from residential Z65.2 Active 561434234411520 Problem 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 Active 42368530 Problem Mitral valve prolapse I34.1 Active 053132758 Problem Anxiety F41.9 Active 87379078 Problem Major depressive disorder, recurrent, moderate F33.1 Active 85821953 Problem Environmental allergies Z91.09 Active 068819202 Problem Arrhythmia as indication for cardiac pacemaker replacement I49.9 Active 35925053 Problem CAD (coronary artery disease) I25.10 Active 02788073 Problem Post-traumatic stress disorder, chronic F43.12 Active 400358652 ALLERGIES No Information ENCOUNTERS Encounter Location Date Diagnosis [facility] [id number] [place] [address] 56021- 1122 Jan, [facility] [id number] [place] [address] 15585- 1675 Dec, [facility] [address] [address]385 Dec, Acute bronchitis J20.9 and BMI 40.0-44.9, adult Z68.41 [facility] [address] 68203- 0681 Dec, [facility] [id number] [place] [address] 31407- 4539 Dec, [facility] [address] 72240- 1739 Dec, [facility] [id number] [place] [address] 25685- 7149 Dec, [facility] [id number] [place] [address] 78936- 7027 Nov, [facility] [id number] [place] [address] 15663- 1006 Nov, Left leg pain [address] [id number] [id number] Nov, [facility] [id number] [place] [address] 22070- 9812 Nov, Encounter for long-term (current) use of other medications Z79.899 [facility] [id number] [place] [address] 25180- 4032 Nov, [facility] [id number] [place] [address] 51119- 4672 Nov, Left leg pain M79.605 [facility] [id number] [place] [address] [id number] 28 Oct, 2017 Dental examination Z01.20 [facility] [id number] [place] [address] 12828- 1491 Oct, Insomnia disorder with non-sleep disorder mental comorbidity G47.00 [facility] [id number] [place] [address] 19988- 8205 Oct, Post-traumatic stress disorder, chronic F43.12 ; Insomnia disorder with non-sleep disorder mental comorbidity G47.00 and BMI 40.0-44.9, adult Z68.41 [facility] [address] 32561- 7550 Oct, [facility] [id number] [place] [address] 20998 -5535 18 Oct, 2017 Insect bite (nonvenomous), left lower leg, initial encounter S80.862A ; Bitten or stung by nonvenomous insect and other nonvenomous arthropods, initial encounter W57.XXXA and BMI 40.0-44.9, adult Z68.41 [facility] [id number] [place] [address] 63427- 0148 06 Oct, 2017 Left leg pain M79.605 [facility] [id number] [place] [address] 12986- 8422 04 Oct, 2017 Post-traumatic stress disorder, unspecified F43.10 ; Major depressive disorder, recurrent, moderate F33.1 and Problems related to release from residential Z65.2 [facility] [id number] [place] [address] 54445- 6500 Sep, Arrhythmia as indication for cardiac pacemaker replacement I49.9 [facility] [id number] [place] [address] 27803- 2608 Sep, [facility] [id number] [place] [address] 43454- 3513 Sep, HTN (hypertension) I10 [facility] [id number] [place] [address] 86387- 5760 17 Sep, 2017 [facility] [id number] [place] [address] 06647- 7909 16 Sep, 2017 Body mass index (BMI) of 40.0-44.9 in adult Z68.41 ; Chronic pain G89.29 and Supraventricular tachycardia I47.1 [facility] [address] 41717- 6149 15 Sep, 2017 [facility] [id number] [place] [address] 65618- 3591 Sep, Sarcoidosis D86.9 [facility] [id number] [place] [address] 08444- 6493 Sep, Sarcoidosis D86.9 [facility] [id number] [place] [address] 30006- 8672 Sep, [facility] [id number] [place] [address] 34505- 4605 Sep, [facility] [id number] [place] [address] 32743- 6213 Sep, [facility] [id number] [place] [address] 36381- 8776 Sep, [facility] [id number] [place] [address] 60444- 8782 Sep, Left leg pain M79.605 [facility] [id number] [place] [address] 99748- 6060 Sep, HTN (hypertension) I10 [facility] [id number] [place] [address] 98707- 3724 Sep, [facility] [id number] [place] [address] 31664- 2053 Sep, Post-traumatic stress disorder, unspecified F43.10 ; Major depressive disorder, recurrent, moderate F33.1 and Problems related to release from residential Z65.2 [facility] [address] [address]- 8872 Sep, [facility] [id number] [place] [address] 61203- 9185 Aug, [facility] [id number] [place] [address] 63407- 9730 Aug, Sarcoidosis D86.9 [facility] [id number] [place] [address] 46823- 3405 Aug, Sarcoidosis D86.9 [facility] [address] 88184- 2134 Aug, HTN (hypertension) I10 [facility] [id number] [place] [address] 51947- 2198 Aug, Post-traumatic stress disorder, unspecified F43.10 ; Major depressive disorder, recurrent, moderate F33.1 and Problems related to release from residential Z65.2 [facility] [id number] [place] [address] 61919- 2723 Aug, [facility] [id number] [place] [address] 83312- 1258 Aug, Left leg pain M79.605 [facility] [id number] [place] [address] 23860- 0923 Jul, Post-traumatic stress disorder, chronic F43.12 ; Anxiety F41.9 ; Problems related to release from residential Z65.2 and BMI 40.0-44.9, adult Z68.41 [facility] [id number] [place] [address] 71029- 2338 Jul, HTN (hypertension) I10 ; Body mass index (BMI) of 40.0-44.9 in adult Z68.41 ; Acute swimmer''s ear of both sides H60.333 and Chronic pain G89.29 [facility] [id number] [place] [address] 92924- 5057 19 Jul, 2017 Glaucoma H40.9 [facility] [id number] [place] [address] 50502- 7469 14 Jul, 2017 [facility] [id number] [place] [address] 25644- 3898 13 Jul, 2017 Sarcoidosis D86.9 [facility] [id number] [place] [address] 14950- 7184 Jul, Left leg pain M79.605 [facility] [id number] [place] [address] 03049- 7744 Jul, Sarcoidosis D86.9 [facility] [id number] [place] [address] 55011- 5602 Jul, Post-traumatic stress disorder, unspecified F43.10 ; Major depressive disorder, recurrent, moderate F33.1 and Problems related to release from residential Z65.2 [facility] [id number] [place] [address] 70683- 4989 June, [facility] [id number] [place] [address] 21883 -9256 June, Sore throat J02.9 and BMI 40.0-44.9, adult Z68.41 [facility] [id number] [place] [address] 26826- 7508 June, [facility] [id number] [place] [address] 98428- 6838 June, [facility] [id number] [place] [address] 32336- 1847 June, [facility] [id number] [place] [address] 51077- 5618 June, Left leg pain M79.605 [facility] [id number] [place] [address] 01186- 0550 June, Sarcoidosis D86.9 [facility] [address] [address]- 4160 June, [facility] [id number] [address]- 5197 June, [facility] [address] [address]- 4733 June, Left leg pain M79.605 [facility] [id number] [place] [address] 10891- 8141 May, [facility] [address] [address]- 6890 May, [facility] [id number] [place] [address] 41785- 9021 May, [facility] [id number] [place] [address] 64172- 5133 May, Left leg pain M79.605 [facility] [id number] [place] [address] 04253- 7688 May, Post-traumatic stress disorder, unspecified F43.10 ; Major depressive disorder, recurrent, moderate F33.1 and Problems related to release from residential Z65.2 [facility] [address] [address]- 9227 May, Chronic pain G89.29 ; Anxiety F41.9 ; Chest pain, unspecified type R07.9 and BMI 40.0-44.9, adult Z68.41 [facility] [address] [address]- 8877 Apr, [facility] [id number] [place] [address] 30028- 1772 Apr, Left leg pain M79.605 [facility] [address] [address]- 3321 Apr, Post-traumatic stress disorder, unspecified F43.10 ; Problems related to release from residential Z65.2 ; Anxiety F41.9 and BMI 40.0-44.9 , adult Z68.41 [facility] [facility] [address] 40711- 2861 22 Apr, 2017 [facility] [address] 76816- 1011 19 Apr, 2017 Left leg pain M79.605 [facility] [address] 81815- 3280 13 Apr, 2017 Post-traumatic stress disorder, unspecified F43.10 ; Major depressive disorder, recurrent, moderate F33.1 and Problems related to release from residential Z65.2 [facility] [facility] [address] 64683- 4411 12 Apr, 2017 [facility] [address] 99816- 3818 12 Apr, 2017 Chronic pain G89.29 ; 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 ; Morbid (severe) obesity due to excess calories E66.01 ; Anxiety F41.9 and BMI 40.0-44.9, adult Z68.41 [facility] [address] [place] [address] 12145 -6673 10 Apr, 2017 Sore throat J02.9 and BMI 40.0-44.9, adult Z68.[address] 76524- 9837 02 Apr, 2017 Left leg pain M79.605 [facility] [address] [id number] 28 Mar, 2017 Dental examination Z01.20 [facility] [facility] [address] 67477- 5192 Mar, [facility] [address] [place] [address] 97413 -9802 20 Mar, 2017 Cough R05 ; Viral gastroenteritis A08.4 and BMI 40.0-44.9, adult Z68.41 [facility] [address] [place] [address] 72670- 2730 Mar, Left leg pain M79.605 [facility] [facility] [address] 61987- 8996 Mar, Post-traumatic stress disorder, unspecified F43.10 ; Major depressive disorder, recurrent, moderate F33.1 and Problems related to release from residential Z65.2 [facility] [address] 19732- 8800 Feb, Left leg pain M79.605 [facility] [id number] [place] [address] 40174- 9325 Feb, [facility] [id number] [place] [address] 75798- 0422 Feb, BMI 40.0-44.9, adult Z68.41 ; Chronic pain syndrome G89.4 ; Migraine without aura and without status migrainosus, not intractable G43.009 ; Mitral valve prolapse I34.1 and 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 [facility] [id number] [place] [address] 60240- 1996 Feb, Post-traumatic stress disorder, chronic F43.12 ; Anxiety F41.9 ; Problems related to release from residential Z65.2 and BMI 40.0-44.9, adult Z68.41 [facility] [id number] [place] [address] 15694- 7324 Feb, Post-traumatic stress disorder, unspecified F43.10 ; Major depressive disorder, recurrent, moderate F33.1 and Problems related to release from residential Z65.2 [facility] [id number] [place] [address] 48064- 9117 Feb, Left leg pain M79.605 [facility] [id number] [place] [address] 96407- 6477 Jan, Post-traumatic stress disorder, unspecified F43.10 ; Major depressive disorder, recurrent, moderate F33.1 and Problems related to release from residential Z65.2 [facility] [address] [address]- 7307 Jan, [facility] [id number] [place] [address] 17452- 2006 Jan, [facility] [id number] [place] [address] 13131- 8878 Jan, Anxiety F41.9 [facility] [id number] [place] [address] 14179- 4822 Jan, Left leg pain M79.605 [facility] [id number] [place] [address] 096023- 5496 Dec, Left leg pain M79.605 [facility] [id number] [place] [address] 65420- 8431 Dec, [facility] [id number] [place] [address] 55602- 2147 Dec, Post-traumatic stress disorder, unspecified F43.10 ; Major depressive disorder, recurrent, moderate F33.1 and Problems related to release from residential Z65.2 [facility] [address] [place] [address] 68157- 5117 31 Nov, 2016 Chronic pain G89.29 and Anxiety F41.9 [facility] [id number] [place] [address] 04663- 1083 Nov, Chronic pain G89.29 and Anxiety F41.9 [facility] [address] [place] [address] 35338- 3758 16 Nov, 2016 Post-traumatic stress disorder, unspecified F43.10 ; Major depressive disorder, recurrent, moderate F33.1 and Problems related to release from residential Z65.2 [facility] [address] [place] [address] 61877- 6641 09 Nov, 2016 Other abnormal findings in specimens from other organs, systems and tissues R89.8 ; Other male erectile dysfunction N52.8 ; Body mass index (BMI) of 40.0-44.9 in adult Z68.41 and Morbid (severe) obesity due to excess calories E66.01 [facility] [id number] [place] [address] 64282- 0580 02 Nov, 2016 Post-traumatic stress disorder, unspecified F43.10 ; Major depressive disorder, recurrent, moderate F33.1 and Problems related to release from residential Z65.2 [facility] [id number] [place] [address] [id number] Oct, Dental examination Z01.20 [facility] [id number] [place] [address] 55321- 5791 Oct, [facility] [id number] [place] [address] 02706- 5351 Oct, Encounter for immunization Z23 [facility] [id number] [place] [address] 85510- 2787 Oct, Chronic pain G89.29 ; Anxiety F41.9 ; Arrhythmia as indication for cardiac pacemaker replacement I49.9 and Glaucoma H40.9 [facility] [id number] [place] [address] 20192- 1142 Oct, Anxiety F41.9 ; Post-traumatic stress disorder, chronic F43.12 and Problems related to release from residential Z65.2 [facility] [id number] [place] [address] 30713- 6494 Oct, Post-traumatic stress disorder, unspecified F43.10 ; Major depressive disorder, recurrent, moderate F33.1 and Problems related to release from residential Z65.2 [facility] [id number] [place] [address] 11539- 3368 Sep, Chronic pain G89.29 and Anxiety F41.9 [facility] [id number] [place] [address] 43444- 8540 Sep, Post-traumatic stress disorder, unspecified F43.10 ; Major depressive disorder, recurrent, moderate F33.1 and Problems related to release from residential Z65.2 [place] [address] [address]- 3328 Sep, Post-traumatic stress disorder, unspecified F43.10 ; Major depressive disorder, recurrent, moderate F33.1 and Problems related to release from residential Z65.2 [facility] [address] [address]- 0947 Sep, Chronic pain G89.29 [facility] [id number] [place] [address] 14465- 5903 Aug, Dental caries, unspecified K02.9 [facility] [id number] [place] [address] 99707- 6026 Aug, Sleep apnea, obstructive G47.33 ; Obesity E66.9 ; Chronic pain G89.29 ; HTN (hypertension) I10 ; Major depressive disorder, recurrent, moderate F33.1 ; Anxiety F41.9 ; Chronic tension headaches G44.229 ; Mitral valve prolapse I34.1 ; Arrhythmia as indication for cardiac pacemaker replacement I49.9 ; Dental caries, unspecified K02.9 ; Primary insomnia F51.01 and Hyperlipidemia E78.5 [facility] [id number] [place] [address] 64783- 7483 Aug, Post-traumatic stress disorder, unspecified F43.10 ; Major depressive disorder, recurrent, moderate F33.1 and Problems related to release from residential Z65.2 [facility] [address] [address]- 2443 Aug, Dental examination Z01.20 [facility] [id number] [id number] Aug, Dental examination Z01.20 [facility] [id number] [place] [address] 92971- 2871 Aug, Post-traumatic stress disorder, unspecified F43.10 ; Major depressive disorder, recurrent, moderate F33.1 and Problems related to release from residential Z65.2 [facility] [address] [address]- 1803 Aug, Chronic pain G89.29 and Primary insomnia F51.01 [facility] [address] [address]- 2101 Jul, [facility] [address] [address]- 2917 Jul, [facility] [id number] [place] [address] 72305- 9701 Jul, Nausea R11.0 [facility] [id number] [place] [address] 55191- 0508 Jul, Arrhythmia as indication for cardiac pacemaker replacement I49.9 [facility] [id number] [place] [address] 15152- 6316 13 Jul, 2016 Post-traumatic stress disorder, unspecified F43.10 ; Major depressive disorder, recurrent, moderate F33.1 and Problems related to release from residential Z65.2 [facility] [address], [place] [address]- 7051 09 Jul, 2016 Anxiety F41.9 [facility] [id number] [place] [address] 21352- 3272 08 Jul, 2016 Chronic pain G89.29 [facility] [address] [address]- 4413 02 Jul, 2016 Sleep apnea, obstructive G47.33 ; Hyperlipidemia E78.5 ; Chronic pain G89.29 ; 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 ; Major depressive disorder, recurrent, moderate F33.1 ; Anxiety F41.9 ; Mitral valve prolapse I34.1 ; Arrhythmia as indication for cardiac pacemaker replacement I49.9 ; Primary insomnia F51.01 ; Bilateral headaches R51 and Environmental allergies Z91.09 [facility] [address] [address]- 3021 Jul, Post-traumatic stress disorder, unspecified F43.10 ; Major depressive disorder, recurrent, moderate F33.1 and Problems related to release from residential Z65.2 [facility] [address] [address]- 4521 June, Post-traumatic stress disorder, chronic F43.12 ; Anxiety F41.9 ; Problems related to release from residential Z65.2 ; Sleep apnea, obstructive G47.33 and Primary insomnia F51.01 [facility] [id number] [place] [address] 47820- 8375 June, [facility] [id number] [place] [address] 26713- 1348 June, [facility] [id number] [place] [address] 01152- 6367 June, [facility] [id number] [place] [address] 97697- 9850 June, Chronic pain G89.29 [facility] [id number] [place] [address] 52608- 5415 June, Chronic pain G89.29 [facility] [id number] [place] [address] 42815- 1105 June, Lipoma of left lower extremity D17.24 ; Open wound T14.8 and Swelling of left lower extremity M79.89 [facility] [id number] [place] [address] 98059- 7910 June, Post-traumatic stress disorder, unspecified F43.10 ; Major depressive disorder, recurrent, moderate F33.1 and Problems related to release from residential Z65.2 [facility] [address] [address]- 7243 May, Lipoma of left lower extremity D17.24 ; Major depressive disorder, recurrent, moderate F33.1 ; Sleep apnea, obstructive G47.33 ; Hyperlipidemia E78.5 ; Obesity E66.9 ; HTN (hypertension) I10 ; Glaucoma H40.9 ; CAD (coronary artery disease) I25.10 ; Chronic tension headaches G44.229 ; Chronic pain G89.29 ; Anxiety F41.9 ; Nausea R11.0 and Primary insomnia F51.01 [place] [id number] [place] [id number] May, [place] [id number] [place] [address] 76571- 4729 11 May, 2016 Chronic pain G89.29 [place] [id number] [place] [address] 10215- 8168 07 May, 2016 [place] [id number] [place] [address] 13832- 4590 31 Apr, 2016 Post-traumatic stress disorder, unspecified F43.10 ; Major depressive disorder, recurrent, moderate F33.1 and Problems related to release from residential Z65.2 [place] [id number] [place] [address] 18396- 7384 28 Apr, 2016 Primary insomnia F51.01 ; Post-traumatic stress disorder, chronic F43.12 and Problems related to release from residential Z65.2 [place] [id number] [place] [address] 58987- 6145 17 Apr, 2016 Post-traumatic stress disorder, unspecified F43.10 ; Major depressive disorder, recurrent, moderate F33.1 and Problems related to release from residential Z65.2 [place] [id number] [place] [address] 97987- 8129 16 Apr, 2016 [place] [id number] [place] [address] 55880- 4881 16 Apr, 2016 Sleep apnea, obstructive G47.33 ; Chronic pain G89.29 ; HTN (hypertension) I10 ; Mitral valve prolapse I34.1 ; Shoulder pain, left M25.512 ; Arrhythmia as indication for cardiac pacemaker replacement I49.9 ; Glaucoma H40.9 ; Bilateral headaches R51 ; Environmental allergies Z91.09 ; Primary insomnia F51.01 and Nausea R11.0 [place] [id number] [place] [address] 76680- 4590 15 Apr, 2016 [place] [id number] [place] [address] 75123- 2340 Apr, [place] [id number] [place] [id number] Apr, Post-traumatic stress disorder, unspecified F43.10 ; Major depressive disorder, recurrent, moderate F33.1 and Problems related to release from residential Z65.2 [place] [id number] [place] [address] 83805- 5218 Apr, HTN (hypertension) I10 [place] [id number] [place] [address] 72443- 5269 Apr, HTN (hypertension) I10 [place] [id number] [place] [address] 74441- 3391 14 Mar, 2016 Chronic pain G89.29 ; Primary insomnia F51.01 and Problems related to release from residential Z65.2 [place] [id number] [place] [address] 74982- 4402 07 Mar, 2016 Post-traumatic stress disorder, unspecified F43.10 ; Major depressive disorder, recurrent, moderate F33.1 and Problems related to release from residential Z65.2 [place] [id number] [place] [address] 38650- 5437 Feb, Post-traumatic stress disorder, unspecified F43.10 ; Major depressive disorder, recurrent, moderate F33.1 and Problems related to release from residential Z65.2 [place] [id number] [place] [address] 95806- 5301 Feb, Chronic tension headaches G44.229 [place] [id number] [place] [address] 48013- 6383 Feb, Sleep apnea, obstructive G47.33 ; Obesity [...] pacemaker replacement I49.9 and Primary insomnia F51.01 [facility] [id number] [place] [address] 34298- 3632 17 Feb, 2016 Post-traumatic stress disorder, unspecified F43.10 and Chronic pain G89.29 [facility] [address] 00321- 4449 Feb, [facility] [id number] [place] [address] [id number] Feb, Dental caries K02.9 [place] [id number] [place] [address] 20494- 5358 06 Feb, 2016 [place] [id number] [place] [address] 18826- 4935 Feb, Post-traumatic stress disorder, unspecified F43.10 ; Major depressive disorder, recurrent, moderate F33.1 and Problems related to release from residential Z65.2 [place] [id number] [place] [address] 25316- 1647 20 Jan, 2016 Sleep apnea, obstructive G47.33 and Chronic pain G89.29 [facility] [id number] [place] [address] 73719- 4773 Jan, [facility] [id number] [place] [address] 27920- 3993 Jan, Dental examination Z01.20 [facility] [id number] [place] [address] 11888- 3820 Jan, [facility] [id number] [place] [address] 08759- 8633 Jan, [facility] [id number] [place] [address] 55337- 7829 Dec, Post-traumatic stress disorder, unspecified F43.10 ; Major depressive disorder, recurrent, moderate F33.1 and Problems related to release from residential Z65.2 [place] [address] [address] Dec, Encounter for immunization Z23 ; Problems related to release from residential Z65.2 ; Sleep apnea, obstructive G47.33 and Post-traumatic stress disorder, chronic F43.12 [place] [address] [address]- 1521 Dec, Sleep apnea, obstructive G47.33 ; Hyperlipidemia E78.5 ; Chronic pain G89.29 ; Glaucoma H40.9 ; HTN (hypertension) I10 ; Post-traumatic stress disorder, unspecified F43.10 ; Anxiety F41.9 ; Chronic tension headaches G44.229 ; Mitral valve prolapse I34.1 and CAD (coronary artery disease) I25.10 [place] [address] [address]- 04[address] Dec, Post-traumatic stress disorder, unspecified F43.10 ; Major depressive disorder, recurrent, moderate F33.1 and Problems related to release from residential Z65.2 [place] [address] [address] 9913 Nov, Chronic pain G89.29 [place] [id number] [place] [address] 64394- 3471 Nov, Post-traumatic stress disorder, unspecified F43.10 ; Major depressive disorder, recurrent, moderate F33.1 and Problems related to release from residential Z65.2 [place] [address] [address]- 6472 Oct, [place] [id number] [place] [address] 37823- 0763 Oct, [place] [id number] [place] [address] 23454- 9646 Oct, Post-traumatic stress disorder, unspecified F43.10 ; Major depressive disorder, recurrent, moderate F33.1 and Problems related to release from residential Z65.2 [place] [id number] [place] [address] 32509- 8237 08 Oct, 2015 [place] [address] 39531- 4413 07 Oct, 2015 Environmental allergies Z91.09 ; Cough R05 and 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 [facility] [id number] [place] [address] 97381- 5895 Sep, [place] [id number] [place] [address] 75196- 2454 Sep, Post-traumatic stress disorder, unspecified F43.10 ; Major depressive disorder, recurrent, moderate F33.1 and Problems related to release from residential Z65.2 [place] [id number] [place] [address] 65831- 2327 16 Sep, 2015 Chronic pain G89.29 [place] [id number] [place] [address] 10552- 6765 Sep, Pain in left shoulder M25.512 ; Pain in right shoulder M25.511 and Other chronic pain G89.29 [place] [id number] [place] [address] 40066- 6628 Sep, [place] [id number] [place] [address] 09896- 5267 Sep, [facility] [id number] [place] [address] 12588- 3114 Sep, [facility] [id number] [place] [address] [id number] Aug, Dental examination Z01.20 [place] [id number] [place] [address] 86370- 0607 Aug, Post-traumatic stress disorder, unspecified F43.10 ; Open- angle glaucoma of both 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 and Problems related to release from residential Z65.2 [place] [id number] [place] [address] 74084- 8753 Aug, [facility] [id number] [place] [address] 59291- 5121 Aug, Sleep apnea, obstructive G47.33 ; Obesity E66.9 ; Hyperlipidemia E78.5 ; Bilateral headaches R51 ; HTN (hypertension) I10 ; Post- traumatic stress disorder, unspecified F43.10 ; Anxiety F41.9 ; Neuropathy G62.9 ; Glaucoma H40.9 and Chronic pain G89.29 [facility] [id number] [place] [address] [id number] Aug, Encounter for dental examination Z01.20 [facility] [id number] [place] [address] 35401- 5007 Aug, Post-traumatic stress disorder, unspecified F43.10 ; Major depressive disorder, recurrent, moderate F33.1 and Problems related to release from residential Z65.2 [facility] [id number] [place] [address] 49399- 6156 Aug, [facility] [id number] [place] [address] 30562- 8650 Jul, [facility] [id number] [place] [address] 69802- 5327 Jul, Post-traumatic stress disorder, unspecified F43.10 and Major depressive disorder, recurrent, moderate F33.1 [facility] [id number] [place] [address] 63426- 9563 Jul, [facility] [id number] [place] [address] 16118- 9626 Jul, [facility] [id number] [place] [address] 42084- 5993 Jul, Chronic pain G89.29 [facility] [id number] [place] [address] 02586- 5105 June, Post-traumatic stress disorder, unspecified F43.10 and Major depressive disorder, recurrent, moderate F33.1 [facility] [id number] [place] [address] 62335- 9714 June, [facility] [id number] [place] [address] 56232- 9777 June, Chronic pain G89.29 [facility] [id number] [place] [address] 65160- 0490 June, Post-traumatic stress disorder, unspecified F43.10 and Major depressive disorder, recurrent, moderate F33.1 [facility] [id number] [place] [address] 50952- 1003 May, Post-traumatic stress disorder, unspecified F43.10 and Major depressive disorder, recurrent, moderate F33.1 [facility] [id number] [place] [address] 61571- 4473 May, [facility] [id number] [place] [address] 41263- 5877 May, [facility] [id number] [place] [address] 08230- 6952 May, [facility] [id number] [place] [address] 27421- 4709 Apr, [facility] [id number] [place] [address] 71589- 1037 Apr, Post-traumatic stress disorder, unspecified F43.10 and Sleep apnea, obstructive G47.33 [facility] [id number] [place] [address] 47421- 4401 Apr, [facility] [id number] [place] [address] 58488- 3227 Apr, Shoulder pain, left M25.512 [facility] [id number] [place] [address] 74005- 8784 Apr, Post-traumatic stress disorder, unspecified F43.10 and Major depressive disorder, recurrent, moderate F33.1 [facility] [id number] [place] [address] 56304- 1101 Apr, [facility] [address] [address]- 5904 Apr, [facility] [id number] [place] [address] 88834- 6762 Apr, [facility] [id number] [place] [address] 40557- 7943 Apr, Left shoulder pain M25.512 [facility] [id number] [place] [address] 57369- 5540 Mar, [facility] [id number] [place] [address] 10954- 3507 Mar, [facility] [id number] [place] [address] 59313- 3875 Mar, [facility] [id number] [place] [address] 06812- 3809 Mar, Sleep apnea, obstructive G47.33 ; Obesity E66.9 ; Chronic pain G89.29 ; Hyperlipidemia E78.5 ; HTN (hypertension) I10 ; 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 ; Major depressive disorder, recurrent, moderate F33.1 and Anxiety F41.9 [place] [id number] [address]- 7733 Mar, [facility] [id number] [place] [address] 92145- 5737 Mar, Post-traumatic stress disorder, unspecified F43.10 and Major depressive disorder, recurrent, moderate F33.1 [place] [id number] [place] [address] 22985- 0135 Mar, [facility] [id number] [place] [address] 98366- 5966 04 Mar, 2015 HTN (hypertension) I10 ; 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 ; Obesity E66.9 ; Hyperlipidemia E78.5 ; Glaucoma H40.9 ; Chronic pain G89.29 and CAD (coronary artery disease) I25.10 [place] [id number] [place] [address] 46284- 0865 Feb, [place] [id number] [place] [address] 98472- 7779 Feb, Post-traumatic stress disorder, unspecified F43.10 ; Obesity E66.9 ; Sleep apnea, obstructive G47.33 and 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 [place] [id number] [place] [address] 05338- 1337 Feb, Post-traumatic stress disorder, unspecified F43.10 and Major depressive disorder, recurrent, moderate F33.1 [place] [id number] [place] [address] 91967- 1685 Feb, [place] [id number] [place] [address] 97401- 4547 Feb, [place] [id number] [place] [address] 20919- 9117 Feb, HTN (hypertension) I10 ; Post-traumatic stress disorder, unspecified F43.10 ; 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 ; Obesity E66.9 ; Hyperlipidemia E78.5 ; Chronic pain G89.29 ; Glaucoma H40.9 ; Mitral valve prolapse I34.1 and Bilateral headaches R51 [id number] [place] [address] 58959- 9116 Feb, [place] [id number] [place] [address] 17262- 3277 Feb, Post-traumatic stress disorder, unspecified F43.10 and Major depressive disorder, recurrent, moderate F33.1 [place] [id number] [place] [address] 93064- 1738 Feb, [place] [id number] [place] [address] 52853- 8730 Feb, [id number] [place] [address] 31915- 2692 Jan, [place] [address]- 6393 Jan, [place] [id number] [place] [address] 81316- 7399 Jan, Obesity E66.9 ; HTN (hypertension) I10 ; 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 ; Major depressive disorder, recurrent, moderate F33.1 ; Glaucoma H40.9 ; Hyperlipidemia E78.5 ; Sleep apnea, obstructive G47.33 ; Chronic pain G89.29 ; Anxiety F41.9 ; Chronic tension headaches G44.229 and Cough R05 [place] [id number] [place] [address] 37904- 4786 Jan, [address] 51566- 9203 Jan, [place] [address] 326929- 7586 Jan, Post-traumatic stress disorder, unspecified F43.10 ; Obesity E66.9 ; Sleep apnea, obstructive G47.33 and 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 [place] [id number] [place] [address] 63756- 5360 Jan, [place] [id number] [place] [address]- 2449 Jan, Post-traumatic stress disorder, unspecified F43.10 and Major depressive disorder, recurrent, moderate F33.1 [place] [id number] [place] [address] 02046- 2306 Dec, [place] [address]86[address]- 2313 Dec, Sleep apnea, obstructive G47.33 ; Obesity E66.9 ; Hyperlipidemia E78.5 ; Glaucoma H40.9 ; Chronic pain G89.29 ; HTN (hypertension ) I10 ; 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 ; Anxiety F41.9 and CAD (coronary artery disease) I25.10 [facility] [id number] [place] [address] 60713- 1889 Nov, [facility] [id number] [place] [address] 39385- 7824 Nov, [facility] [address] 00859- 6751 Nov, [facility] [id number] [place] [address] 65861- 8232 Nov, [facility] [address] 73090- 6506 Nov, [facility] [address] 32057- 7197 Nov, Encounter for immunization Z23 ; Sleep apnea, obstructive G47.33 ; Obesity E66.9 ; Hyperlipidemia E78.5 ; Glaucoma H40.9 ; Chronic pain G89.29 ; Anxiety F41.9 ; Chronic tension headaches G44.229 and HTN (hypertension ) I10 [facility] [id number] [place] [address] 67954- 6700 Nov, [facility] [id number] [place] [address] 51390- 9800 Nov, [facility] [id number] [place] [address] 91201- 8999 Nov, Dizziness R42 [facility] [id number] [place] [address] 64189- 1446 Nov, [facility] [id number] [place] [address] 76013- 8904 Oct, [facility] [id number] [place] [address] 71228- 1561 Oct, [facility] [id number] [place] [address] 75024- 7105 Oct, [place] [id number] [place] [address] 66150- 1677 Oct, [place] [address]809- 7263 Oct, Dizziness 780.4 ; Essential hypertension 401.9 ; Obesity 278.00 ; Hyperlipidemia 272.4 ; Chronic pain 338.29 ; Glaucoma 365.9 and Anxiety [address] 78526- 2185 Oct, Essential hypertension 401.9 ; Hyperlipidemia 272.4 ; Glaucoma 365.9 ; Obesity 278.00 ; Chronic pain 338.29 and Allergy to insects V15.[address] 06791- 8509 Sep, [address] 08615- 4774 Sep, [address] 88938- 3482 Sep, [address] 55395- 7315 Sep, [address] 91203- 1395 Aug, Essential hypertension 401.9 ; Obesity 278.00 ; Hyperlipidemia 272.4 ; Glaucoma 365.9 ; Lipoma 214.9 ; Mitral valve prolapse 424.0 ; Angina at rest 413.9 ; Lymphedema 457.1 and Chronic pain 338.29 IMMUNIZATIONS No Known Immunizations SOCIAL HISTORY Never Assessed REASON FOR VISIT Refill Request PLAN OF CARE VITAL SIGNS MEDICATIONS Medication Instructions Dosage Frequency Start Date End Date Duration Status Atorvastatin Calcium 20 MG Orally Once a day 1 tablet 24h 90 days Active RESULTS No Results PROCEDURES No [...]
--- OUTSIDE RECORDS SUMMARY | 2018-02-04 14:01 | XMS REPORT ---
Author Author ALENA ÁLVAREZ [facility] Address [address] [place] [address] Care Team Providers Care Sap Director Name Role Phone ALENA ÁLVAREZ Unavailable PROBLEMS Type Condition ICD9-CM Code VMA34-YG Code Onset Dates Condition Status SNOMED Code Problem Hyperlipidemia E78.5 Active 81682577 Problem Sleep apnea, obstructive G47.33 Active 49344387 Problem Primary insomnia F51.01 Active 7012382 Problem Chronic pain G89.29 Active 94902869 Problem Morbid (severe) obesity due to excess calories E66.01 Active 287616681 Problem Myocarditis, unspecified chronicity, 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 Active 94535511 Problem Other male erectile dysfunction N52.8 Active 389015671 Problem 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 Active 990770454 Problem Body mass index (BMI) of 40.0-44.9 in adult Z68.41 Active 586979251 Problem Supraventricular tachycardia I47.1 Active 7001509 Problem Insomnia disorder with non-sleep disorder mental comorbidity G47.00 Active 09879558 Problem Chronic tension headaches G44.229 Active 322150199 Problem HTN (hypertension) I10 Active 86501322 Problem 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 Active 657656791 Problem Chronic pain syndrome G89.4 Active 532033229 Problem Migraine without aura and without status migrainosus, not intractable G43.009 Active 224766369 Problem Sarcoidosis D86.9 Active 17028885 Problem Problems related to release from jail Z65.2 Active 043312111133930 Problem 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 Active 02858594 Problem Mitral valve prolapse I34.1 Active 346302790 Problem Anxiety F41.9 Active 99460486 Problem Major depressive disorder, recurrent, moderate F33.1 Active 04911750 Problem Environmental allergies Z91.09 Active 758133272 Problem Arrhythmia as indication for cardiac pacemaker replacement I49.9 Active 42009152 Problem CAD (coronary artery disease) I25.10 Active 08214324 Problem Post-traumatic stress disorder, chronic F43.12 Active 271708878 ALLERGIES No Information ENCOUNTERS Encounter Location Date Diagnosis [facility] [id number] [place] [address] 77010- 4191 Jan, [facility] [id number] [address] 8712 Dec, [facility] [id number] [place] [address] 30819- 7000 Dec, [facility] [id number] [place] [address] 02509- 5202 Dec, [facility] [id number] [place] [address] 54419- 6333 Dec, [facility] [id number] [place] [address] 81692- 4888 Nov, [facility] [id number] [place] [address] 74642- 6947 Nov, Left leg pain [address]79.[address] [place] [id number] [facility] [address] [id number] [id number] Nov, [facility] [id number] [place] [address] 48123- 5059 Nov, Encounter for long-term (current) use of other medications Z79.899 [facility] [id number] [place] [address] 67111- 8649 Nov, [facility] [id number] [place] [address] 84193- 8147 Nov, Left leg pain M79.605 [facility] [address] [place] [address] [id number] Oct, Dental examination Z01.20 [facility] [address] [place] [address] 70316- 8879 Oct, Insomnia disorder with non-sleep disorder mental comorbidity G47.00 [place] [id number] [place] [address] 32922- 9877 25 Oct, 2017 Post-traumatic stress disorder, chronic F43.12 ; Insomnia disorder with non-sleep disorder mental comorbidity G47.00 and BMI 40.0-44.9, adult Z68.41 [place] [id number] [place] [address] 27761- 8638 19 Oct, 2017 [facility] [address] 26037 -5972 18 Oct, 2017 Insect bite (nonvenomous), left lower leg, initial encounter S80.862A ; Bitten or stung by nonvenomous insect and other nonvenomous arthropods, initial encounter W57.XXXA and BMI 40.0-44.9, adult Z68.41 [place] [address] 53211- 5184 06 Oct, 2017 Left leg pain M79.605 [place] [address] 05540- 0675 04 Oct, 2017 Post-traumatic stress disorder, unspecified F43.10 ; Major depressive disorder, recurrent, moderate F33.1 and Problems related to release from jail Z65.2 [facility] [id number] [place] [address] 47276- 1252 Sep, Arrhythmia as indication for cardiac pacemaker replacement I49.9 [place] [address] 37637- 7302 Sep, [place] [address] 95694- 4834 Sep, HTN (hypertension) I10 [place] [address] 73378- 1874 Sep, [facility] [id number] [place] [address] 37763- 5140 Sep, Body mass index (BMI) of 40.0-44.9 in adult Z68.41 ; Chronic pain G89.29 and Supraventricular tachycardia I47.1 [facility] [id number] [place] [address] 91633- 8462 Sep, [facility] [id number] [place] [address] 03277- 2003 Sep, Sarcoidosis D86.9 [facility] [id number] [place] [address] 14339- 3379 Sep, Sarcoidosis D86.9 [facility] [id number] [place] [address] 57504- 1785 Sep, [facility] [address] 07835- 7743 Sep, [facility] [id number] [place] [address] 12799- 8419 Sep, [facility] [id number] [place] [address] 67741- 5146 Sep, [facility] [id number] [place] [address] 02830- 1524 Sep, Left leg pain M79.605 [facility] [id number] [place] [address] 46400- 9298 Sep, HTN (hypertension) I10 [facility] [id number] [place] [address] 51560- 1343 Sep, [facility] [id number] [place] [address] 27538- 6625 Sep, Post-traumatic stress disorder, unspecified F43.10 ; Major depressive disorder, recurrent, moderate F33.1 and Problems related to release from jail Z65.2 [facility] [id number] [place] [address] 73818- 6769 Sep, [facility] [id number] [place] [address] 15697- 0807 Aug, [facility] [id number] [place] [address] 37839- 0892 31 Aug, 2017 Sarcoidosis D86.9 [place] [address] 05699- 8769 Aug, Sarcoidosis D86.9 [place] [id number] [place] [address] 89054- 3499 Aug, HTN (hypertension) I10 [place] [address] 30075- 5124 18 Aug, 2017 Post-traumatic stress disorder, unspecified F43.10 ; Major depressive disorder, recurrent, moderate F33.1 and Problems related to release from jail Z65.2 [place] [address] 14250- 7522 11 Aug, 2017 [place] [address] 32268- 2056 Aug, Left leg pain M79.605 [place] [id number] [place] [address] 82426- 6986 26 Jul, 2017 Post-traumatic stress disorder, chronic F43.12 ; Anxiety F41.9 ; Problems related to release from jail Z65.2 and BMI 40.0-44.9, adult Z68.41 [place] [id number] [place] [address] 63968- 0376 20 Jul, 2017 HTN (hypertension) I10 ; Body mass index (BMI) of 40.0-44.9 in adult Z68.41 ; Acute swimmer''s ear of both sides H60.333 and Chronic pain G89.29 [place] [id number] [place] [address] 65238- 9646 Jul, Glaucoma H40.9 [place] [id number] [place] [address] 81859- 1760 14 Jul, 2017 [place] [id number] [place] [address] 67377- 4163 13 Jul, 2017 Sarcoidosis D86.9 [facility] [address] [address] 8658 Jul, Left leg pain M79.605 [facility] [id number] [place] [address] 14339- 0727 Jul, Sarcoidosis D86.9 [facility] [id number] [place] [address] 74888- 0419 Jul, Post-traumatic stress disorder, unspecified F43.10 ; Major depressive disorder, recurrent, moderate F33.1 and Problems related to release from jail Z65.2 [facility] [id number] [place] [address] 03638- 3185 June, [facility] [id number] [place] [address] 62772 -1420 June, Sore throat J02.9 and BMI 40.0-44.9, adult Z68.41 [facility] [id number] [place] [address] 57516- 8585 June, [facility] [id number] [place] [address] 83408- 7049 June, [facility] [id number] [place] [address] 69317- 2624 June, [facility] [id number] [place] [address] 12284- 6074 June, Left leg pain M79.605 [facility] [id number] [place] [address] 87775- 0501 June, Sarcoidosis D86.9 [facility] [id number] [place] [address] 11442- 0206 June, [facility] [id number] [place] [address] 37349- 0459 June, [facility] [id number] [place] [address] 70854- 6729 June, Left leg pain M79.605 [facility] [address] [address]- 7156 May, [facility] [id number] [place] [address] 49216- 6782 May, [facility] [id number] [place] [address] 07007- 4537 May, [facility] [id number] [place] [address] 45983- 7721 May, Left leg pain M79.605 [facility] [id number] [place] [address] 08467- 0624 May, Post-traumatic stress disorder, unspecified F43.10 ; Major depressive disorder, recurrent, moderate F33.1 and Problems related to release from jail Z65.2 [place] [id number] [place] [address] 13288- 9572 May, Chronic pain G89.29 ; Anxiety F41.9 ; Chest pain, unspecified type R07.9 and BMI 40.0-44.9, adult Z68.41 [place] [id number] [place] [address] 44663- 4176 Apr, [facility] [address] [place] [address] 81933- 7813 Apr, Left leg pain M79.605 [facility] [id number] [place] [address] 57205- 0958 Apr, Post-traumatic stress disorder, unspecified F43.10 ; Problems related to release from jail Z65.2 ; Anxiety F41.9 and BMI 40.0-44.9 , adult Z68.41 [facility] [id number] [place] [address] 47352- 5220 Apr, [facility] [id number] [place] [address] 62801- 4579 Apr, Left leg pain M79.605 [facility] [id number] [place] [address] 59978- 7592 13 Apr, 2017 Post-traumatic stress disorder, unspecified F43.10 ; Major depressive disorder, recurrent, moderate F33.1 and Problems related to release from jail Z65.2 [place] [address] 87160- 4070 12 Apr, 2017 [place] [address] 30970- 6513 12 Apr, 2017 Chronic pain G89.29 ; 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 ; Morbid (severe) obesity due to excess calories E66.01 ; Anxiety F41.9 and BMI 40.0-44.9, adult Z68.41 [facility] [address] 75722 -8298 10 Apr, 2017 Sore throat J02.9 and BMI 40.0-44.9, adult Z68.41 [place] [address] 02956- 5816 02 Apr, 2017 Left leg pain M79.605 [facility] [address] [id number] 28 Mar, 2017 Dental examination Z01.[address] 86881- 0454 Mar, [facility] [address] [place] [address] 99439 -8736 20 Mar, 2017 Cough R05 ; Viral gastroenteritis A08.4 and BMI 40.0-44.9, adult Z68.41 [place] [address] 23254- 3200 19 Mar, 2017 Left leg pain M79.605 [place] [address] 00787- 5184 06 Mar, 2017 Post-traumatic stress disorder, unspecified F43.10 ; Major depressive disorder, recurrent, moderate F33.1 and Problems related to release from jail Z65.2 [facility] [id number] [place] [address] 20234- 5796 Feb, Left leg pain M79.605 [facility] [id number] [place] [address] 79129- 3936 Feb, [place] [id number] [place] [address] 87665- 2527 Feb, BMI 40.0-44.9, adult Z68.41 ; Chronic pain syndrome G89.4 ; Migraine without aura and without status migrainosus, not intractable G43.009 ; Mitral valve prolapse I34.1 and 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 [place] [id number] [place] [address] 60445- 8943 Feb, Post-traumatic stress disorder, chronic F43.12 ; Anxiety F41.9 ; Problems related to release from jail Z65.2 and BMI 40.0-44.9, adult Z68.41 [place] [id number] [place] [address] 85782- 7254 Feb, Post-traumatic stress disorder, unspecified F43.10 ; Major depressive disorder, recurrent, moderate F33.1 and Problems related to release from jail Z65.2 [place] [address] [address]- 5655 Feb, Left leg pain M79.605 [place] [id number] [place] [address] 03831- 1559 Jan, Post-traumatic stress disorder, unspecified F43.10 ; Major depressive disorder, recurrent, moderate F33.1 and Problems related to release from jail Z65.2 [place] [id number] [place] [address] 19784- 7802 Jan, [place] [id number] [address]- 8281 Jan, [place] [address] [place] [address]- 5960 Jan, Anxiety F41.9 [place] [id number] [place] [address] 30911- 4027 13 Jan, 2017 Left leg pain M79.605 [place] [id number] [place] [address] 28913- 9636 Dec, Left leg pain M79.605 [place] [id number] [place] [address] 96939- 0509 Dec, [place] [id number] [place] [address] 92077- 0577 15 Dec, 2016 Post-traumatic stress disorder, unspecified F43.10 ; Major depressive disorder, recurrent, moderate F33.1 and Problems related to release from jail Z65.2 [place] [id number] [place] [address] 29360- 6844 31 Nov, 2016 Chronic pain G89.29 and Anxiety F41.9 [place] [id number] [place] [address] 76558- 2618 24 Nov, 2016 Chronic pain G89.29 and Anxiety F41.9 [place] [id number] [place] [address] 09902- 6226 16 Nov, 2016 Post-traumatic stress disorder, unspecified F43.10 ; Major depressive disorder, recurrent, moderate F33.1 and Problems related to release from jail Z65.2 [place] [address] [place] [address] 84457- 0871 09 Nov, 2016 Other abnormal findings in specimens from other organs, systems and tissues R89.8 ; Other male erectile dysfunction N52.8 ; Body mass index (BMI) of 40.0-44.9 in adult Z68.41 and Morbid (severe) obesity due to excess calories E66.01 [place] [address] [place] [address] 57208- 1077 02 Nov, 2016 Post-traumatic stress disorder, unspecified F43.10 ; Major depressive disorder, recurrent, moderate F33.1 and Problems related to release from jail Z65.2 [facility] [id number] [address] 29 Oct, 2016 Dental examination Z01.20 [facility] [address], [place] [address]- 8202 28 Oct, 2016 [facility] [address] [place] [address] 54135- 8115 28 Oct, 2016 Encounter for immunization Z23 [facility] [id number] [place] [address] 53101- 5551 Oct, Chronic pain G89.29 ; Anxiety F41.9 ; Arrhythmia as indication for cardiac pacemaker replacement I49.9 and Glaucoma H40.9 [place] [address] [address]- 4369 Oct, Anxiety F41.9 ; Post-traumatic stress disorder, chronic F43.12 and Problems related to release from jail Z65.2 [place] [address] [place] [address] 91380- 5919 Oct, Post-traumatic stress disorder, unspecified F43.10 ; Major depressive disorder, recurrent, moderate F33.1 and Problems related to release from jail Z65.2 [place] [address] [address]- 4449 Sep, Chronic pain G89.29 and Anxiety F41.9 [place] [address] [place] [address] 42307- 1375 Sep, Post-traumatic stress disorder, unspecified F43.10 ; Major depressive disorder, recurrent, moderate F33.1 and Problems related to release from jail Z65.2 [place] [address] [place] [address] 87290- 5339 Sep, Post-traumatic stress disorder, unspecified F43.10 ; Major depressive disorder, recurrent, moderate F33.1 and Problems related to release from jail Z65.2 [place] [id number] [address]- 5025 Sep, Chronic pain G89.29 [facility] [id number] [place] [address] 59978- 9187 Aug, Dental caries, unspecified K02.9 [facility] [address] [place] [address] 38071- 7301 Aug, Sleep apnea, obstructive G47.33 ; Obesity E66.9 ; Chronic pain G89.29 ; HTN (hypertension) I10 ; Major depressive disorder, recurrent, moderate F33.1 ; Anxiety F41.9 ; Chronic tension headaches G44.229 ; Mitral valve prolapse I34.1 ; Arrhythmia as indication for cardiac pacemaker replacement I49.9 ; Dental caries, unspecified K02.9 ; Primary insomnia F51.01 and Hyperlipidemia E78.5 [place] [id number] [place] [address] 33340- 0104 Aug, Post-traumatic stress disorder, unspecified F43.10 ; Major depressive disorder, recurrent, moderate F33.1 and Problems related to release from jail Z65.2 [place] [id number] [place] [address] 91313- 2030 Aug, Dental examination Z01.20 [facility] [address] [place] [address] [id number] 13 Aug, 2016 Dental examination Z01.20 [facility] [address] [place] [address] 69722- 5839 06 Aug, 2016 Post-traumatic stress disorder, unspecified F43.10 ; Major depressive disorder, recurrent, moderate F33.1 and Problems related to release from jail Z65.2 [place] [id number] [place] [address] 59533- 3185 05 Aug, 2016 Chronic pain G89.29 and Primary insomnia F51.01 [facility] [address] [place] [address] 32846- 8668 Jul, [place] [id number] [place] [address] 73547- 9225 Jul, [place] [id number] [place] [address] 96107- 6274 Jul, Nausea R11.0 [place] [id number] [place] [address] 14303- 2265 Jul, Arrhythmia as indication for cardiac pacemaker replacement I49.9 [place] [id number] [place] [address] 45877- 7217 13 Jul, 2016 Post-traumatic stress disorder, unspecified F43.10 ; Major depressive disorder, recurrent, moderate F33.1 and Problems related to release from jail Z65.2 [place] [id number] [place] [address] 06171- 1601 09 Jul, 2016 Anxiety F41.9 [place] [id number] [place] [address] 05868- 7225 08 Jul, 2016 Chronic pain G89.29 [place] [id number] [place] [address] 86284- 4523 02 Jul, 2016 Sleep apnea, obstructive G47.33 ; Hyperlipidemia E78.5 ; Chronic pain G89.29 ; 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 ; Major depressive disorder, recurrent, moderate F33.1 ; Anxiety F41.9 ; Mitral valve prolapse I34.1 ; Arrhythmia as indication for cardiac pacemaker replacement I49.9 ; Primary insomnia F51.01 ; Bilateral headaches R51 and Environmental allergies Z91.[address] [place] [address] 27633- 2927 Jul, Post-traumatic stress disorder, unspecified F43.10 ; Major depressive disorder, recurrent, moderate F33.1 and Problems related to release from jail Z65.2 [address] [place] [address] 21408- 7615 June, Post-traumatic stress disorder, chronic F43.12 ; Anxiety F41.9 ; Problems related to release from jail Z65.2 ; Sleep apnea, obstructive G47.33 and Primary insomnia F51.01 [place] [address] [address]- 9440 June, [place] [id number] [place] [address] 87755- 3812 June, [place] [id number] [place] [address] 62121- 1069 June, [place] [id number] [place] [address] 24909- 3425 June, Chronic pain G89.29 [place] [id number] [place] [address] 60416- 5468 June, Chronic pain G89.29 [place] [id number] [place] [address] 54928- 4031 June, Lipoma of left lower extremity D17.24 ; Open wound T14.8 and Swelling of left lower extremity M79.89 [place] [id number] [place] [address] 39412- 0313 June, Post-traumatic stress disorder, unspecified F43.10 ; Major depressive disorder, recurrent, moderate F33.1 and Problems related to release from jail Z65.2 [address] [place] [address] 81373- 3258 May, Lipoma of left lower extremity D17.24 ; Major depressive disorder, recurrent, moderate F33.1 ; Sleep apnea, obstructive G47.33 ; Hyperlipidemia E78.5 ; Obesity E66.9 ; HTN (hypertension) I10 ; Glaucoma H40.9 ; CAD (coronary artery disease) I25.10 ; Chronic tension headaches G44.229 ; Chronic pain G89.29 ; Anxiety F41.9 ; Nausea R11.0 and Primary insomnia F51.01 [place] [id number] [place] [id number] May, [place] [id number] [place] [phone] May, Chronic pain G89.29 [place] [id number] [address] May, [place] [address] [address] [place] [id number] [place] [id number] 31 Apr, 2016 Post-traumatic stress disorder, unspecified F43.10 ; Major depressive disorder, recurrent, moderate F33.1 and Problems related to release from jail Z65.2 [place] [address] [address] [place] [id number] [place] [phone] Apr, Primary insomnia F51.01 ; Post-traumatic stress disorder, chronic F43.12 and Problems related to release from jail Z65.2 [place] [id number] [place] [phone] 17 Apr, 2016 Post-traumatic stress disorder, unspecified F43.10 ; Major depressive disorder, recurrent, moderate F33.1 and Problems related to release from jail Z65.2 [place] [address] [id number] [place] [address] 69678- 1060 16 Apr, 2016 [place] [id number] [place] [address] 03660- 4104 Apr, Sleep apnea, obstructive G47.33 ; Chronic pain G89.29 ; HTN (hypertension) I10 ; Mitral valve prolapse I34.1 ; Shoulder pain, left M25.512 ; Arrhythmia as indication for cardiac pacemaker replacement I49.9 ; Glaucoma H40.9 ; Bilateral headaches R51 ; Environmental allergies Z91.09 ; Primary insomnia F51.01 and Nausea R11.0 [place] [address], [place] [address] 4049 Apr, [place] [id number] [place] [address] 35833- 1490 Apr, [place] [id number] [place] [address] 39520- 3437 Apr, Post-traumatic stress disorder, unspecified F43.10 ; Major depressive disorder, recurrent, moderate F33.1 and Problems related to release from jail Z65.2 [place] [id number], [place] [address] 0070 Apr, HTN (hypertension) I10 [place] [id number] [place] [address] 70206- 3649 Apr, HTN (hypertension) I10 [place] [id number] [address] 9807 Mar, Chronic pain G89.29 ; Primary insomnia F51.01 and Problems related to release from jail Z65.2 [place] [id number] [place] [address] 56983- 3299 07 Mar, 2016 Post-traumatic stress disorder, unspecified F43.10 ; Major depressive disorder, recurrent, moderate F33.1 and Problems related to release from jail Z65.2 [place] [id number] [place] [address] 70074- 1782 Feb, Post-traumatic stress disorder, unspecified F43.10 ; Major depressive disorder, recurrent, moderate F33.1 and Problems related to release from jail Z65.2 [place] [id number] [place] [address] 39512- 6045 Feb, Chronic tension headaches G44.229 [place] [id number] [place] [address] 94142- 2374 Feb, Sleep apnea, obstructive G47.33 ; Obesity [...] pacemaker replacement I49.9 and Primary insomnia F51.01 [place] [address], [place] [address] 1063 Feb, Post-traumatic stress disorder, unspecified F43.10 and Chronic pain G89.29 [facility] [address], [place] [address] 5284 Feb, [facility] [address] [id number] Feb, Dental caries K02.9 [facility] [address], [place] [address]- 6529 Feb, [place] [id number] [place] [address] 61196- 3582 Feb, Post-traumatic stress disorder, unspecified F43.10 ; Major depressive disorder, recurrent, moderate F33.1 and Problems related to release from jail Z65.2 [place] [id number] [place] [address] 38659- 0565 Jan, Sleep apnea, obstructive G47.33 and Chronic pain G89.29 [place] [id number] [place] [address] 28451- 4474 Jan, [place] [id number] [place] [address] 07019- 7864 Jan, Dental examination Z01.20 [place] [id number] [place] [address] 48613- 9569 Jan, [facility] [address], [place] [address] Jan, [place] [id number] [place] [address] 34559- 3167 Dec, Post-traumatic stress disorder, unspecified F43.10 ; Major depressive disorder, recurrent, moderate F33.1 and Problems related to release from jail Z65.2 [place] [id number] [place] [address] 79440- 6962 Dec, Encounter for immunization Z23 ; Problems related to release from jail Z65.2 ; Sleep apnea, obstructive G47.33 and Post-traumatic stress disorder, chronic F43.[address] [facility] [address] [address]- 4489 Dec, Sleep apnea, obstructive G47.33 ; Hyperlipidemia E78.5 ; Chronic pain G89.29 ; Glaucoma H40.9 ; HTN (hypertension) I10 ; Post-traumatic stress disorder, unspecified F43.10 ; Anxiety F41.9 ; Chronic tension headaches G44.229 ; Mitral valve prolapse I34.1 and CAD (coronary artery disease) I25.[address] 78571- 0892 Dec, Post-traumatic stress disorder, unspecified F43.10 ; Major depressive disorder, recurrent, moderate F33.1 and Problems related to release from jail Z65.[address] 79772- 1212 Nov, Chronic pain G89.[address] 90536- 5871 Nov, Post-traumatic stress disorder, unspecified F43.10 ; Major depressive disorder, recurrent, moderate F33.1 and Problems related to release from jail Z65.[address] 68016- 4108 Oct, [address] 25661- 9034 23 Oct, [address] 12780- 2348 16 Oct, 2015 Post-traumatic stress disorder, unspecified F43.10 ; Major depressive disorder, recurrent, moderate F33.1 and Problems related to release from jail Z65.[address] 16788- 0089 08 Oct, [address] 31286- 3596 07 Oct, 2015 Environmental allergies Z91.09 ; Cough R05 and 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 [address] [id number] [address] 7[address] Sep, [facility] [id number] [place] [address] 60916- 7390 Sep, Post-traumatic stress disorder, unspecified F43.10 ; Major depressive disorder, recurrent, moderate F33.1 and Problems related to release from jail Z65.2 [facility] [id number] [place] [address] 01265- 3658 Sep, Chronic pain G89.29 [facility] [id number] [place] [address] 56910- 2680 Sep, Pain in left shoulder M25.512 ; Pain in right shoulder M25.511 and Other chronic pain G89.29 [facility] [id number] [place] [address] 09194- 5121 Sep, [facility] [id number] [place] [address] 58333- 7383 Sep, [facility] [id number] [place] [address] 24504- 4061 Sep, [facility] [id number] [place] [address] [id number] Aug, Dental examination Z01.20 [facility] [id number] [place] [address] 74806- 2673 Aug, Post-traumatic stress disorder, unspecified F43.10 ; Open- angle glaucoma of both 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 and Problems related to release from jail Z65.2 [facility] [address], [place] [address]- 7018 Aug, [place] [id number] [place] [address] 99385- 9322 Aug, Sleep apnea, obstructive G47.33 ; Obesity E66.9 ; Hyperlipidemia E78.5 ; Bilateral headaches R51 ; HTN (hypertension) I10 ; Post- traumatic stress disorder, unspecified F43.10 ; Anxiety F41.9 ; Neuropathy G62.9 ; Glaucoma H40.9 and Chronic pain G89.29 [facility] [id number] [id number] Aug, Encounter for dental examination Z01.20 [facility] [id number] [place] [address] 72062- 4422 08 Aug, 2015 Post-traumatic stress disorder, unspecified F43.10 ; Major depressive disorder, recurrent, moderate F33.1 and Problems related to release from jail Z65.2 [facility] [id number] [place] [address] 81016- 9044 Aug, [facility] [id number] [place] [address] 27759- 1902 Jul, [facility] [id number] [place] [address] 91231- 4635 Jul, Post-traumatic stress disorder, unspecified F43.10 and Major depressive disorder, recurrent, moderate F33.1 [facility] [address], [place] [address]- 4510 Jul, [facility] [id number] [place] [address] 34614- 9433 Jul, [facility] [id number] [place] [address] 30879- 1813 Jul, Chronic pain G89.29 [facility] [id number] [place] [address] 54944- 1437 June, Post-traumatic stress disorder, unspecified F43.10 and Major depressive disorder, recurrent, moderate F33.1 [facility] [id number] [place] [address] 26691- 4395 June, [facility] [id number] [place] [address] 90062- 5165 June, Chronic pain G89.29 [facility] [id number] [place] [address] 81952- 3598 June, Post-traumatic stress disorder, unspecified F43.10 and Major depressive disorder, recurrent, moderate F33.1 [facility] [id number] [place] [address] 29075- 4765 May, Post-traumatic stress disorder, unspecified F43.10 and Major depressive disorder, recurrent, moderate F33.1 [facility] [id number] [place] [address] 24437- 1460 May, [facility] [id number] [place] [address] 90611- 1528 May, [facility] [id number] [place] [address] 93227- 8713 May, [facility] [id number] [place] [address] 62059- 6066 Apr, [facility] [id number] [place] [address] 82071- 9339 Apr, Post-traumatic stress disorder, unspecified F43.10 and Sleep apnea, obstructive G47.33 [facility] [id number] [place] [address] 96409- 8965 Apr, [facility] [id number] [place] [address] 74674- 8682 Apr, Shoulder pain, left M25.512 [facility] [id number] [place] [address] 19171- 2013 Apr, Post-traumatic stress disorder, unspecified F43.10 and Major depressive disorder, recurrent, moderate F33.1 [facility] [id number] [place] [address] 86121- 3265 17 Apr, 2015 [facility] [id number] [place] [address] 12533- 5384 Apr, [facility] [id number] [place] [address] 38890- 0387 Apr, [facility] [id number] [place] [address] 47896- 2334 Apr, Left shoulder pain M25.512 [place] [id number] [place] [address] 35012- 0905 Mar, [place] [id number] [place] [address] 68645- 9977 Mar, [place] [address] 40285- 1396 Mar, [place] [id number] [place] [address] 29801- 0944 Mar, Sleep apnea, obstructive G47.33 ; Obesity E66.9 ; Chronic pain G89.29 ; Hyperlipidemia E78.5 ; HTN (hypertension) I10 ; 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 ; Major depressive disorder, recurrent, moderate F33.1 and Anxiety F41.9 [place] [id number] [place] [address] 35199- 9495 Mar, [place] [id number] [place] [address] 00227- 3790 Mar, Post-traumatic stress disorder, unspecified F43.10 and Major depressive disorder, recurrent, moderate F33.1 [place] [id number] [place] [address] 29883- 4815 Mar, [place] [id number] [place] [address] 53779- 1616 Mar, HTN (hypertension) I10 ; 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 ; Obesity E66.9 ; Hyperlipidemia E78.5 ; Glaucoma H40.9 ; Chronic pain G89.29 and CAD (coronary artery disease) I25.10 [place] [id number] [place] [address] 80776- 7170 Feb, [place] [id number] [place] [address] 46370- 4572 Feb, Post-traumatic stress disorder, unspecified F43.10 ; Obesity E66.9 ; Sleep apnea, obstructive G47.33 and 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 [place] [address] 37106- 6540 Feb, Post-traumatic stress disorder, unspecified F43.10 and Major depressive disorder, recurrent, moderate F33.1 [place] [address] 43778- 5537 Feb, [place] [address] 34287- 5231 Feb, [place] [address] 03793- 2176 Feb, HTN (hypertension) I10 ; Post-traumatic stress disorder, unspecified F43.10 ; 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 ; Obesity E66.9 ; Hyperlipidemia E78.5 ; Chronic pain G89.29 ; Glaucoma H40.9 ; Mitral valve prolapse I34.1 and Bilateral headaches R51 [place] [address] 15414- 4519 Feb, [place] [address] 44380- 6216 Feb, Post-traumatic stress disorder, unspecified F43.10 and Major depressive disorder, recurrent, moderate F33.1 [place] [id number] [place] [address] 62769- 5737 Feb, [place] [id number] [place] [address] 03036- 5658 Feb, [place] [address] 08726- 6588 Jan, [place] [address] 14246- 2080 Jan, [place] [address] 24679- 0622 Jan, Obesity E66.9 ; HTN (hypertension) I10 ; 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 ; Major depressive disorder, recurrent, moderate F33.1 ; Glaucoma H40.9 ; Hyperlipidemia E78.5 ; Sleep apnea, obstructive G47.33 ; Chronic pain G89.29 ; Anxiety F41.9 ; Chronic tension headaches G44.229 and [address]ough [address] [place] [address]- 602 Jan, [place] [address] [place] [address]94694- 4313 Jan, [place] [address] 0314 Jan, Post-traumatic stress disorder, unspecified F43.10 ; Obesity E66.9 ; Sleep apnea, obstructive G47.33 and 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 [place] [address]- 8411 Jan, [place] [address]- 3822 Jan, Post-traumatic stress disorder, unspecified F43.10 and Major depressive disorder, recurrent, moderate F33.1 [place] [id number] [place] [address]- [address]101 Dec, [place] [address]- 3974 Dec, Sleep apnea, obstructive G47.33 ; Obesity E66.9 ; Hyperlipidemia E78.5 ; Glaucoma H40.9 ; Chronic pain G89.29 ; HTN (hypertension ) I10 ; 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 ; Anxiety F41.9 and CAD (coronary artery disease) I25.10 [place] [id number] [place] [address]- 2993 Nov, [place] [address]40[address]- 9326 Nov, [facility] [id number] [place] [address] 09013- 0179 Nov, [facility] [id number] [place] [address] 74953- 9095 Nov, [facility] [id number] [place] [address] 88482- 2671 Nov, [facility] [address] 87972- 9311 Nov, Encounter for immunization Z23 ; Sleep apnea, obstructive G47.33 ; Obesity E66.9 ; Hyperlipidemia E78.5 ; Glaucoma H40.9 ; Chronic pain G89.29 ; Anxiety F41.9 ; Chronic tension headaches G44.229 and HTN (hypertension ) I10 [facility] [id number] [place] [address] 90402- 6003 Nov, [facility] [address] 14623- 6068 Nov, [facility] [id number] [place] [address] 09230- 8785 Nov, Dizziness R42 [facility] [id number] [place] [address] 90682- 9303 Nov, [facility] [id number] [place] [address] 90473- 8241 29 Oct, 2014 [facility] [id number] [place] [address] 66176- 2635 28 Oct, 2014 [facility] [id number] [place] [address] 53971- 6426 Oct, [facility] [address] 53259- 6286 Oct, [facility] [id number] [place] [address] 69111- 9464 17 Oct, 2014 Dizziness 780.4 ; Essential hypertension 401.9 ; Obesity 278.00 ; Hyperlipidemia 272.4 ; Chronic pain 338.29 ; Glaucoma 365.9 and Anxiety 300.00 [facility] [address] [address]- 8989 Oct, Essential hypertension 401.9 ; Hyperlipidemia 272.4 ; Glaucoma 365.9 ; Obesity 278.00 ; Chronic pain 338.29 and Allergy to insects V15.06 [facility] [address] [address]- 1234 Sep, [facility] [id number] [place] [address] 16152- 6301 Sep, [facility] [id number] [place] [address] 97472- 3248 Sep, [facility] [id number] [place] [address] 57966- 9154 Sep, [facility] [id number] [place] [address] 08305- 4069 Aug, Essential hypertension 401.9 ; Obesity 278.00 ; Hyperlipidemia 272.4 ; Glaucoma 365.9 ; Lipoma 214.9 ; Mitral valve prolapse 424.0 ; Angina at rest 413.9 ; Lymphedema 457.1 and Chronic pain 338.29 IMMUNIZATIONS No Known Immunizations SOCIAL HISTORY Never Assessed REASON FOR VISIT medication issues- Pt states [facility] could not fill the cough syrup because they are out of the medication, wants to know if he can fill script here, told pt we can not fill outside scripts here at [facility] if we did not refer- Fransisca Gonzales RN PLAN OF CARE VITAL SIGNS MEDICATIONS Unknown [...]
--- OUTSIDE RECORDS SUMMARY | 2018-02-04 14:02 | XMS REPORT ---
Author Author ALENA ÁLVAREZ [facility] Address [address] [place] [address] Care Team Providers Care Wire Brusher Name Role Phone ALENA ÁLVAREZ Unavailable PROBLEMS Type Condition ICD9-CM Code AEP67-ZC Code Onset Dates Condition Status SNOMED Code Problem Hyperlipidemia E78.5 Active 87753589 Problem Sleep apnea, obstructive G47.33 Active 43153667 Problem Primary insomnia F51.01 Active 0107027 Problem Chronic pain G89.29 Active 22017113 Problem Morbid (severe) obesity due to excess calories E66.01 Active 977495545 Problem Myocarditis, unspecified chronicity, 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 Active 36349078 Problem Other male erectile dysfunction N52.8 Active 966308578 Problem 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 Active 714926643 Problem Body mass index (BMI) of 40.0-44.9 in adult Z68.41 Active 745358011 Problem Supraventricular tachycardia I47.1 Active 7983585 Problem Insomnia disorder with non-sleep disorder mental comorbidity G47.00 Active 66756202 Problem Chronic tension headaches G44.229 Active 774166138 Problem HTN (hypertension) I10 Active 22742209 Problem 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 Active 916016391 Problem Chronic pain syndrome G89.4 Active 246847081 Problem Migraine without aura and without status migrainosus, not intractable G43.009 Active 817832255 Problem Sarcoidosis D86.9 Active 77295894 Problem Problems related to release from care home Z65.2 Active [id number] Problem 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 Active 56891548 Problem Mitral valve prolapse I34.1 Active 774446120 Problem Anxiety F41.9 Active 15400341 Problem Major depressive disorder, recurrent, moderate F33.1 Active 35497451 Problem Environmental allergies Z91.09 Active 913154165 Problem Arrhythmia as indication for cardiac pacemaker replacement I49.9 Active 18810331 Problem CAD (coronary artery disease) I25.10 Active 34166282 Problem Post-traumatic stress disorder, chronic F43.12 Active 920371715 ALLERGIES No Information ENCOUNTERS Encounter Location Date Diagnosis [facility] [address] [place] [address] 65807- 7320 Jan, [facility] [id number] [address]367 Dec, [facility] [id number] [place] [address] 84552- 0522 Dec, [facility] [id number] [place] [address] 44839- 1230 Dec, [facility] [id number] [place] [address] 89196- 8028 Nov, [facility] [id number] [place] [address] 11809- 4313 Nov, Left leg pain [address]79.[address] [id number] [id number] Nov, [facility] [id number] [place] [address] 66614- 5290 Nov, Encounter for long-term (current) use of other medications Z79.899 [facility] [address] [place] [address] 69432- 4875 Nov, [facility] [id number] [place] [address] 65971- 7565 Nov, Left leg pain M79.605 [facility] [address] [place] [address] [id number] Oct, Dental examination Z01.20 [facility] [address] [place] [address] 01627- 0904 Oct, Insomnia disorder with non-sleep disorder mental comorbidity G47.00 [facility] [address] [address] 20[address] Oct, Post-traumatic stress disorder, chronic F43.12 ; Insomnia disorder with non-sleep disorder mental comorbidity G47.00 and BMI 40.0-44.9, adult Z68.41 [facility] [address] 93445- 9999 19 Oct, 2017 [facility] [address] [address] -2196 18 Oct, 2017 Insect bite (nonvenomous), left lower leg, initial encounter S80.862A ; Bitten or stung by nonvenomous insect and other nonvenomous arthropods, initial encounter W57.XXXA and BMI 40.0-44.9, adult Z68.41 [place] [address] 69803- 6893 06 Oct, 2017 Left leg pain M79.605 [place] [address] 48330- 6923 04 Oct, 2017 Post-traumatic stress disorder, unspecified F43.10 ; Major depressive disorder, recurrent, moderate F33.1 and Problems related to release from care home Z65.2 [place] [address] 66904- 4855 Sep, Arrhythmia as indication for cardiac pacemaker replacement I49.9 [place] [address] 34131- 4270 Sep, [place] [address] 07735- 7069 Sep, HTN (hypertension) I10 [place] [address] 85630- 7276 Sep, [place] [address] 27447- 7498 Sep, Body mass index (BMI) of 40.0-44.9 in adult Z68.41 ; Chronic pain G89.29 and Supraventricular tachycardia I47.1 [place] [address] [place] [address]- 7108 Sep, [facility] [id number] [place] [address] 70739- 5506 Sep, Sarcoidosis D86.9 [facility] [id number] [place] [address] 47181- 4946 Sep, Sarcoidosis D86.9 [facility] [id number] [place] [address] 47868- 1033 Sep, [facility] [id number] [place] [address] 72928- 6607 Sep, [facility] [id number] [place] [address] 14191- 4083 Sep, [facility] [id number] [place] [address] 64146- 0464 Sep, [facility] [id number] [place] [address] 10116- 9651 Sep, Left leg pain M79.605 [facility] [id number] [place] [address] 56822- 6078 Sep, HTN (hypertension) I10 [facility] [id number] [place] [address] 88156- 0854 Sep, [facility] [id number] [place] [address] 20136- 2309 Sep, Post-traumatic stress disorder, unspecified F43.10 ; Major depressive disorder, recurrent, moderate F33.1 and Problems related to release from care home Z65.2 [facility] [address] [place] [address] 96602- 9072 Sep, [facility] [id number] [place] [address] 31772- 9640 Aug, [facility] [id number] [place] [address] 23917- 7981 Aug, Sarcoidosis D86.9 [place] [address] [place] [address] 38200- 2392 30 Aug, 2017 Sarcoidosis D86.9 [place] [id number] [place] [address] 28005- 1367 Aug, HTN (hypertension) I10 [place] [id number] [place] [address] 62771- 1170 18 Aug, 2017 Post-traumatic stress disorder, unspecified F43.10 ; Major depressive disorder, recurrent, moderate F33.1 and Problems related to release from care home Z65.2 [place] [id number] [place] [address] 55659- 0135 11 Aug, 2017 [place] [id number] [place] [address] 04181- 6680 Aug, Left leg pain M79.605 [place] [address] 11522- 5201 26 Jul, 2017 Post-traumatic stress disorder, chronic F43.12 ; Anxiety F41.9 ; Problems related to release from care home Z65.2 and BMI 40.0-44.9, adult Z68.41 [place] [id number] [place] [address] 87514- 6601 20 Jul, 2017 HTN (hypertension) I10 ; Body mass index (BMI) of 40.0-44.9 in adult Z68.41 ; Acute swimmer''s ear of both sides H60.333 and Chronic pain G89.29 [place] [address] [place] [address] 44671- 2413 19 Jul, 2017 Glaucoma H40.9 [place] [id number] [place] [address] 28746- 7053 14 Jul, 2017 [place] [id number] [place] [address] 88247- 4025 13 Jul, 2017 Sarcoidosis D86.9 [place] [id number] [place] [address] 12877- 6498 Jul, Left leg pain M79.605 [facility] [id number] [place] [address] 43083- 9051 Jul, Sarcoidosis D86.9 [facility] [id number] [place] [address] 07012- 9238 Jul, Post-traumatic stress disorder, unspecified F43.10 ; Major depressive disorder, recurrent, moderate F33.1 and Problems related to release from care home Z65.2 [facility] [id number] [place] [address] 15848- 7245 June, [facility] [address] 71667 -9613 June, Sore throat J02.9 and BMI 40.0-44.9, adult Z68.41 [facility] [id number] [place] [address] 79575- 9867 June, [facility] [id number] [place] [address] 08986- 4405 June, [facility] [id number] [place] [address] 31116- 6610 June, [facility] [id number] [place] [address] 73998- 5944 June, Left leg pain M79.605 [facility] [id number] [place] [address] 79073- 1684 June, Sarcoidosis D86.9 [facility] [id number] [place] [address] 85210- 6875 June, [facility] [id number] [place] [address] 70156- 9302 June, [facility] [id number] [place] [address] 52876- 9367 June, Left leg pain M79.605 [facility] [id number] [place] [address] 04643- 4735 May, [facility] [address] [address]- 5978 May, [facility] [address] [place] [address] 20333- 4217 May, [facility] [address] [place] [address] 92299- 7224 May, Left leg pain M79.605 [facility] [address] [place] [address] 67173- 0553 May, Post-traumatic stress disorder, unspecified F43.10 ; Major depressive disorder, recurrent, moderate F33.1 and Problems related to release from care home Z65.2 [facility] [address] [place] [address] 80066- 2682 May, Chronic pain G89.29 ; Anxiety F41.9 ; Chest pain, unspecified type R07.9 and BMI 40.0-44.9, adult Z68.41 [facility] [address] [place] [address] 36400- 3610 30 Apr, 2017 [facility] [id number] [place] [address] 93764- 8201 29 Apr, 2017 Left leg pain M79.605 [facility] [address] [place] [address] 89036- 2891 27 Apr, 2017 Post-traumatic stress disorder, unspecified F43.10 ; Problems related to release from care home Z65.2 ; Anxiety F41.9 and BMI 40.0-44.9 , adult Z68.41 [facility] [address] [place] [address] 35110- 6345 Apr, [facility] [id number] [place] [address] 85606- 8752 Apr, Left leg pain M79.605 [facility] [id number] [place] [address] 79814- 6585 Apr, Post-traumatic stress disorder, unspecified F43.10 ; Major depressive disorder, recurrent, moderate F33.1 and Problems related to release from care home Z65.2 [place] [address] 73762- 3979 12 Apr, 2017 [place] [address] 84396- 9088 12 Apr, 2017 Chronic pain G89.29 ; 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 ; Morbid (severe) obesity due to excess calories E66.01 ; Anxiety F41.9 and BMI 40.0-44.9, adult Z68.41 [facility] [place] [address] 24573 -7495 10 Apr, 2017 Sore throat J02.9 and BMI 40.0-44.9, adult Z68.41 [place] [address] 57128- 5822 02 Apr, 2017 Left leg pain M79.605 [facility] [address] [id number] 28 Mar, 2017 Dental examination Z01.20 [place] [address] 95641- 4351 23 Mar, 2017 [facility] [place] [address] 46714 -9382 20 Mar, 2017 Cough R05 ; Viral gastroenteritis A08.4 and BMI 40.0-44.9, adult Z68.41 [place] [address] 44969- 4840 19 Mar, 2017 Left leg pain M79.605 [place] [address] 04693- 4859 06 Mar, 2017 Post-traumatic stress disorder, unspecified F43.10 ; Major depressive disorder, recurrent, moderate F33.1 and Problems related to release from care home Z65.2 [place] [address] [place] [address]- 9882 Feb, Left leg pain M79.605 [place] [id number] [place] [address] 60775- 3663 Feb, [place] [id number] [place] [address] 59961- 3317 Feb, BMI 40.0-44.9, adult Z68.41 ; Chronic pain syndrome G89.4 ; Migraine without aura and without status migrainosus, not intractable G43.009 ; Mitral valve prolapse I34.1 and 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 [place] [id number] [place] [address] 73968- 5210 Feb, Post-traumatic stress disorder, chronic F43.12 ; Anxiety F41.9 ; Problems related to release from care home Z65.2 and BMI 40.0-44.9, adult Z68.41 [place] [address] 57215- 8497 Feb, Post-traumatic stress disorder, unspecified F43.10 ; Major depressive disorder, recurrent, moderate F33.1 and Problems related to release from care home Z65.2 [place] [id number] [place] [address] 21110- 3917 Feb, Left leg pain M79.605 [place] [id number] [place] [address] 28801- 9780 Jan, Post-traumatic stress disorder, unspecified F43.10 ; Major depressive disorder, recurrent, moderate F33.1 and Problems related to release from care home Z65.2 [place] [id number] [place] [address] 16527- 5515 Jan, [place] [address] 25230- 4732 Jan, [place] [id number] [place] [address] 78589- 2452 Jan, Anxiety F41.9 [place] [address] [place] [address] 93331- 6122 Jan, Left leg pain M79.605 [facility] [id number] [place] [address] 57807- 2270 Dec, Left leg pain M79.605 [facility] [id number] [place] [address] 50879- 5039 Dec, [facility] [id number] [place] [address] 88036- 6194 Dec, Post-traumatic stress disorder, unspecified F43.10 ; Major depressive disorder, recurrent, moderate F33.1 and Problems related to release from care home Z65.2 [place] [id number] [place] [address] 17307- 6363 31 Nov, 2016 Chronic pain G89.29 and Anxiety F41.9 [place] [id number] [place] [address] 73629- 1771 24 Nov, 2016 Chronic pain G89.29 and Anxiety F41.9 [place] [id number] [place] [address] 45785- 0091 16 Nov, 2016 Post-traumatic stress disorder, unspecified F43.10 ; Major depressive disorder, recurrent, moderate F33.1 and Problems related to release from care home Z65.2 [place] [address] [place] [address] 24713- 1299 09 Nov, 2016 Other abnormal findings in specimens from other organs, systems and tissues R89.8 ; Other male erectile dysfunction N52.8 ; Body mass index (BMI) of 40.0-44.9 in adult Z68.41 and Morbid (severe) obesity due to excess calories E66.01 [place] [address] [place] [address] 31790- 6792 02 Nov, 2016 Post-traumatic stress disorder, unspecified F43.10 ; Major depressive disorder, recurrent, moderate F33.1 and Problems related to release from care home Z65.2 [facility] [id number] [id number] Oct, Dental examination Z01.20 [place] [address], [place] [address]- 7683 Oct, [place] [address] [place] [address] 09381- 9201 Oct, Encounter for immunization Z23 [place] [id number] [place] [address] 73498- 5482 Oct, Chronic pain G89.29 ; Anxiety F41.9 ; Arrhythmia as indication for cardiac pacemaker replacement I49.9 and Glaucoma H40.9 [place] [id number] [place] [address] 17907- 3408 Oct, Anxiety F41.9 ; Post-traumatic stress disorder, chronic F43.12 and Problems related to release from care home Z65.2 [place] [id number] [place] [address] 82985- 3721 07 Oct, 2016 Post-traumatic stress disorder, unspecified F43.10 ; Major depressive disorder, recurrent, moderate F33.1 and Problems related to release from care home Z65.2 [place] [address] [place] [address] 95515- 9115 30 Sep, 2016 Chronic pain G89.29 and Anxiety F41.9 [place] [address] [address]- 9292 Sep, Post-traumatic stress disorder, unspecified F43.10 ; Major depressive disorder, recurrent, moderate F33.1 and Problems related to release from care home Z65.2 [place] [address] [address]- 2693 11 Sep, 2016 Post-traumatic stress disorder, unspecified F43.10 ; Major depressive disorder, recurrent, moderate F33.1 and Problems related to release from care home Z65.2 [place] [address], [place] [address]- 1121 Sep, Chronic pain G89.29 [place] [id number] [place] [address] 52477- 3341 Aug, Dental caries, unspecified K02.9 [facility] [id number] [place] [address] 20646- 6519 Aug, Sleep apnea, obstructive G47.33 ; Obesity E66.9 ; Chronic pain G89.29 ; HTN (hypertension) I10 ; Major depressive disorder, recurrent, moderate F33.1 ; Anxiety F41.9 ; Chronic tension headaches G44.229 ; Mitral valve prolapse I34.1 ; Arrhythmia as indication for cardiac pacemaker replacement I49.9 ; Dental caries, unspecified K02.9 ; Primary insomnia F51.01 and Hyperlipidemia E78.5 [place] [id number] [place] [address] 41175- 2346 Aug, Post-traumatic stress disorder, unspecified F43.10 ; Major depressive disorder, recurrent, moderate F33.1 and Problems related to release from care home Z65.2 [place] [id number] [place] [address] 32642- 9059 Aug, Dental examination Z01.20 [facility] [id number] [place] [address] [id number] Aug, Dental examination Z01.20 [facility] [id number] [place] [address] 75855- 8443 Aug, Post-traumatic stress disorder, unspecified F43.10 ; Major depressive disorder, recurrent, moderate F33.1 and Problems related to release from care home Z65.2 [place] [address] [place] [address] 39324- 6328 Aug, Chronic pain G89.29 and Primary insomnia F51.01 [place] [id number] [place] [address] 25081- 1273 Jul, [place] [id number] [place] [address] 65032- 4614 Jul, [place] [id number] [place] [address] 69782- 1114 30 Jul, 2016 Nausea R11.0 [place] [address] [place] [address] 67123- 0967 29 Jul, 2016 Arrhythmia as indication for cardiac pacemaker replacement I49.9 [place] [address] [place] [address] 71429- 9661 13 Jul, 2016 Post-traumatic stress disorder, unspecified F43.10 ; Major depressive disorder, recurrent, moderate F33.1 and Problems related to release from care home Z65.2 [place] [id number] [place] [address] 94183- 2602 09 Jul, 2016 Anxiety F41.9 [place] [address] [place] [address] 16531- 0702 08 Jul, 2016 Chronic pain G89.29 [place] [address] [place] [address] 95402- 8391 Jul, Sleep apnea, obstructive G47.33 ; Hyperlipidemia E78.5 ; Chronic pain G89.29 ; 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 ; Major depressive disorder, recurrent, moderate F33.1 ; Anxiety F41.9 ; Mitral valve prolapse I34.1 ; Arrhythmia as indication for cardiac pacemaker replacement I49.9 ; Primary insomnia F51.01 ; Bilateral headaches R51 and Environmental allergies Z91.09 [place] [address] [address]- 4121 Jul, Post-traumatic stress disorder, unspecified F43.10 ; Major depressive disorder, recurrent, moderate F33.1 and Problems related to release from care home Z65.2 [place] [address] [address]- 0793 June, Post-traumatic stress disorder, chronic F43.12 ; Anxiety F41.9 ; Problems related to release from care home Z65.2 ; Sleep apnea, obstructive G47.33 and Primary insomnia F51.01 [place] [address] [place] [address] 51981- 9678 June, [place] [address] [address]- 7950 June, [facility] [id number] [place] [address] 13476- 6094 June, [facility] [address] [address]- 4595 June, Chronic pain G89.29 [place] [id number] [place] [address] 33272- 6667 June, Chronic pain G89.29 [place] [address] [place] [address] 62393- 1529 June, Lipoma of left lower extremity D17.24 ; Open wound T14.8 and Swelling of left lower extremity M79.89 [place] [id number] [place] [address] 21931- 9681 June, Post-traumatic stress disorder, unspecified F43.10 ; Major depressive disorder, recurrent, moderate F33.1 and Problems related to release from care home Z65.2 [place] [address] [place] [address] 35190- 0025 May, Lipoma of left lower extremity D17.24 ; Major depressive disorder, recurrent, moderate F33.1 ; Sleep apnea, obstructive G47.33 ; Hyperlipidemia E78.5 ; Obesity E66.9 ; HTN (hypertension) I10 ; Glaucoma H40.9 ; CAD (coronary artery disease) I25.10 ; Chronic tension headaches G44.229 ; Chronic pain G89.29 ; Anxiety F41.9 ; Nausea R11.0 and Primary insomnia F51.01 [place] [address] [address]- 7061 May, [place] [address] [id number] [place] [address] 99344- 6777 May, Chronic pain G89.29 [place] [address] [place] [address] 94919- 3700 May, [place] [address], [place] [address]- 5813 Apr, Post-traumatic stress disorder, unspecified F43.10 ; Major depressive disorder, recurrent, moderate F33.1 and Problems related to release from care home Z65.2 [place] [address] [address]- 0516 Apr, Primary insomnia F51.01 ; Post-traumatic stress disorder, chronic F43.12 and Problems related to release from care home Z65.2 [place] [address] [place] [id number] [place] [id number] Apr, Post-traumatic stress disorder, unspecified F43.10 ; Major depressive disorder, recurrent, moderate F33.1 and Problems related to release from care home Z65.[address] [place] [address] [place] [id number] [place] [address] Apr, [place] [address] [place] [id number] [place] [address] Apr, Sleep apnea, obstructive G47.33 ; Chronic pain G89.29 ; HTN (hypertension) I10 ; Mitral valve prolapse I34.1 ; Shoulder pain, left M25.512 ; Arrhythmia as indication for cardiac pacemaker replacement I49.9 ; Glaucoma H40.9 ; Bilateral headaches R51 ; Environmental allergies Z91.09 ; Primary insomnia F51.01 and Nausea R11.0 [place] [id number] [address] Apr, [place] [address] [place] [id number] [place] [address] Apr, [place] [address] [place] [id number] [place] [address] Apr, Post-traumatic stress disorder, unspecified F43.10 ; Major depressive disorder, recurrent, moderate F33.1 and Problems related to release from care home Z65.2 [place] [address] [place] [id number] [place] [phone] Apr, HTN (hypertension) I10 [place] [id number] [place] [address] 13855- 5492 Apr, HTN (hypertension) I10 [facility] [facility] [id number] [place] [address] 87464- 2101 14 Mar, 2016 Chronic pain G89.29 ; Primary insomnia F51.01 and Problems related to release from care home Z65.2 [place] [id number] [place] [address] 07 Mar, 2016 Post-traumatic stress disorder, unspecified F43.10 ; Major depressive disorder, recurrent, moderate F33.1 and Problems related to release from care home Z65.2 [place] [id number] [place] [address] 96161- 9438 Feb, Post-traumatic stress disorder, unspecified F43.10 ; Major depressive disorder, recurrent, moderate F33.1 and Problems related to release from care home Z65.2 [place] [id number] [place] [address] 03322- 5614 Feb, Chronic tension headaches G44.229 [place] [id number] [place] [address] 10014- 8175 Feb, Sleep apnea, obstructive G47.33 ; Obesity [...] pacemaker replacement I49.9 and Primary insomnia F51.01 [place] [id number] [place] [address] 23973- 6789 Feb, Post-traumatic stress disorder, unspecified F43.10 and Chronic pain G89.29 [place] [id number] [place] [id number] Feb, [facility] [id number] [id number] Feb, Dental caries K02.9 [facility] [address] [place] [address] 54137- 6838 Feb, [facility] [address] [place] [address] 43188- 2074 Feb, Post-traumatic stress disorder, unspecified F43.10 ; Major depressive disorder, recurrent, moderate F33.1 and Problems related to release from care home Z65.2 [facility] [id number] [place] [address] 86499- 8947 Jan, Sleep apnea, obstructive G47.33 and Chronic pain G89.29 [facility] [id number] [place] [address] 39736- 5491 Jan, [facility] [id number] [place] [address] 16675- 0720 Jan, Dental examination Z01.20 [facility] [address] [place] [address] 02962- 0945 Jan, [facility] [id number] [place] [address] 92819- 2314 Jan, [facility] [address] [address] 7055 Dec, Post-traumatic stress disorder, unspecified F43.10 ; Major depressive disorder, recurrent, moderate F33.1 and Problems related to release from care home Z65.2 [facility] [address], [place] [address] 7[address] Dec, Encounter for immunization Z23 ; Problems related to release from care home Z65.2 ; Sleep apnea, obstructive G47.33 and Post-traumatic stress disorder, chronic F43.12 [facility] [address] [address] 2327 18 Dec, 2015 Sleep apnea, obstructive G47.33 ; Hyperlipidemia E78.5 ; Chronic pain G89.29 ; Glaucoma H40.9 ; HTN (hypertension) I10 ; Post-traumatic stress disorder, unspecified F43.10 ; Anxiety F41.9 ; Chronic tension headaches G44.229 ; Mitral valve prolapse I34.1 and CAD (coronary artery disease) I25.10 [facility] [id number] [place] [address] 58170- 9205 Dec, Post-traumatic stress disorder, unspecified F43.10 ; Major depressive disorder, recurrent, moderate F33.1 and Problems related to release from care home Z65.2 [facility] [facility] [id number] [place] [address] 20033- 4603 Nov, Chronic pain G89.29 [facility] [id number] [place] [address] 95519- 1083 Nov, Post-traumatic stress disorder, unspecified F43.10 ; Major depressive disorder, recurrent, moderate F33.1 and Problems related to release from care home Z65.2 [facility] [facility] [id number] [place] [address] 03049- 2659 Oct, [facility] [address] 38628- 5516 Oct, [facility] [id number] [place] [address] 64236- 1295 Oct, Post-traumatic stress disorder, unspecified F43.10 ; Major depressive disorder, recurrent, moderate F33.1 and Problems related to release from care home Z65.2 [facility] [facility] [id number] [place] [address] 43614- 5198 08 Oct, 2015 [facility] [facility] [address] 10191- 7591 07 Oct, 2015 Environmental allergies Z91.09 ; Cough R05 and 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 [facility] [facility] [id number] [place] [address] 67589- 5723 Sep, [facility] [address] [address]- 5265 Sep, Post-traumatic stress disorder, unspecified F43.10 ; Major depressive disorder, recurrent, moderate F33.1 and Problems related to release from care home Z65.2 [facility] [facility] [address] [place] [address] 79688- 7860 Sep, Chronic pain G89.29 [facility] [facility] [id number] [place] [address] 49953- 8632 Sep, Pain in left shoulder M25.512 ; Pain in right shoulder M25.511 and Other chronic pain G89.29 [facility] [facility] [id number] [place] [address] 09445- 5777 Sep, [facility] [facility] [id number] [place] [address] 58757- 0666 Sep, [facility] [id number] [place] [address] 77931- 4622 Sep, [facility] [address] [place] [address] [id number] Aug, Dental examination Z01.20 [facility] [facility] [id number] [place] [address] 41704- 8091 Aug, Post-traumatic stress disorder, unspecified F43.10 ; Open- angle glaucoma of both 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 and Problems related to release from care home Z65.2 [facility] [id number] [place] [address] 05879- 0413 Aug, [facility] [id number] [place] [address] 95821- 9619 Aug, Sleep apnea, obstructive G47.33 ; Obesity E66.9 ; Hyperlipidemia E78.5 ; Bilateral headaches R51 ; HTN (hypertension) I10 ; Post- traumatic stress disorder, unspecified F43.10 ; Anxiety F41.9 ; Neuropathy G62.9 ; Glaucoma H40.9 and Chronic pain G89.29 [facility] [id number] [id number] Aug, Encounter for dental examination Z01.20 [facility] [address], [place] [address]- 7580 Aug, Post-traumatic stress disorder, unspecified F43.10 ; Major depressive disorder, recurrent, moderate F33.1 and Problems related to release from care home Z65.2 [facility] [address], [place] [address]- 8598 Aug, [facility] [address], [place] [address]- 0268 Jul, [facility] [address], [place] [address]- 6404 Jul, Post-traumatic stress disorder, unspecified F43.10 and Major depressive disorder, recurrent, moderate F33.1 [facility] [address], [place] [address]- 4930 Jul, [facility] [address], [place] [address]- 1909 Jul, [facility] [address], [place] [address]- 4270 Jul, Chronic pain G89.29 [facility] [address], [place] [address]- 0291 June, Post-traumatic stress disorder, unspecified F43.10 and Major depressive disorder, recurrent, moderate F33.1 [facility] [id number] [address]- 5849 June, [facility] [address], [place] [address]- 7782 June, Chronic pain G89.29 [facility] [id number], [place] [address]- 5124 June, Post-traumatic stress disorder, unspecified F43.10 and Major depressive disorder, recurrent, moderate F33.1 [facility] [id number], [place] [address]- 6765 29 May, 2015 Post-traumatic stress disorder, unspecified F43.10 and Major depressive disorder, recurrent, moderate F33.1 [facility] [address], [place] [address]- 6665 15 May, 2015 [facility] [id number] [place] [address] 53116- 4490 08 May, 2015 [facility] [id number] [place] [address] 76792- 0508 May, [facility] [id number] [place] [address] 50035- 1858 Apr, [facility] [id number] [place] [address] 50212- 5006 Apr, Post-traumatic stress disorder, unspecified F43.10 and Sleep apnea, obstructive G47.33 [facility] [id number] [place] [address] 01914- 8509 Apr, [facility] [id number] [place] [address] 22754- 1645 Apr, Shoulder pain, left M25.512 [facility] [address] [place] [address] 79265- 9124 18 Apr, 2015 Post-traumatic stress disorder, unspecified F43.10 and Major depressive disorder, recurrent, moderate F33.1 [facility] [address], [place] [address]- 5379 17 Apr, 2015 [facility] [id number] [place] [address] 45201- 8404 11 Apr, 2015 [facility] [address] [place] [address] 25857- 0080 08 Apr, 2015 [facility] [address], [place] [address]- 0415 07 Apr, 2015 Left shoulder pain M25.512 [facility] [address] [place] [address] 08555- 4431 Mar, [facility] [id number] [place] [address] 309740- 7391 Mar, [facility] [id number] [place] [address] 67578- 4616 Mar, [facility] [facility] [id number] [place] [address] 21417- 9491 Mar, Sleep apnea, obstructive G47.33 ; Obesity E66.9 ; Chronic pain G89.29 ; Hyperlipidemia E78.5 ; HTN (hypertension) I10 ; 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 ; Major depressive disorder, recurrent, moderate F33.1 and Anxiety F41.9 [facility] [id number] [place] [address] 43949- 9748 Mar, [facility] [id number] [place] [address] 81864- 3429 Mar, Post-traumatic stress disorder, unspecified F43.10 and Major depressive disorder, recurrent, moderate F33.1 [facility] [id number] [place] [address] 78001- 9445 08 Mar, 2015 [place] [id number] [place] [address] 09155- 8998 04 Mar, 2015 HTN (hypertension) I10 ; 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 ; Obesity E66.9 ; Hyperlipidemia E78.5 ; Glaucoma H40.9 ; Chronic pain G89.29 and CAD (coronary artery disease) I25.10 [facility] [id number] [place] [address] 39005- 4391 Feb, [facility] [id number] [place] [address] 99339- 1643 Feb, Post-traumatic stress disorder, unspecified F43.10 ; Obesity E66.9 ; Sleep apnea, obstructive G47.33 and 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 [facility] [address], [place] [address]- 3456 Feb, Post-traumatic stress disorder, unspecified F43.10 and Major depressive disorder, recurrent, moderate F33.1 [facility] [address], [place] [address]- 3807 Feb, [place] [address] [place] [address] 05026- 2729 Feb, [place] [address] [place] [address] 87107- 7574 Feb, HTN (hypertension) I10 ; Post-traumatic stress disorder, unspecified F43.10 ; 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 ; Obesity E66.9 ; Hyperlipidemia E78.5 ; Chronic pain G89.29 ; Glaucoma H40.9 ; Mitral valve prolapse I34.1 and Bilateral headaches R51 [place] [id number] [place] [address] 11640- 4018 Feb, [facility] [id number] [place] [address] 60962- 6697 Feb, Post-traumatic stress disorder, unspecified F43.10 and Major depressive disorder, recurrent, moderate F33.1 [place] [address], [place] [address]- 1463 Feb, [place] [address], [place] [address]- 4811 Feb, [place] [address], [place] [address]- 6366 Jan, [facility] [id number] [place] [address] 11760- 0009 Jan, [facility] [address], [place] [address]- 4939 Jan, Obesity E66.9 ; HTN (hypertension) I10 ; 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 ; Major depressive disorder, recurrent, moderate F33.1 ; Glaucoma H40.9 ; Hyperlipidemia E78.5 ; Sleep apnea, obstructive G47.33 ; Chronic pain G89.29 ; Anxiety F41.9 ; Chronic tension headaches G44.229 and Cough R05 [place] [id number] [place] [address]- 2872 Jan, [place] [address] 858886- 3237 Jan, [address] 5966 Jan, Post-traumatic stress disorder, unspecified F43.10 ; Obesity E66.9 ; Sleep apnea, obstructive G47.33 and 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 [place] [id number] [place] [address] 99068- 9485 Jan, [place] [address]- 9527 Jan, Post-traumatic stress disorder, unspecified F43.10 and Major depressive disorder, recurrent, moderate F33.1 [place] [address]3567- 3340 Dec, [address] 50736- 2044 Dec, Sleep apnea, obstructive G47.33 ; Obesity E66.9 ; Hyperlipidemia E78.5 ; Glaucoma H40.9 ; Chronic pain G89.29 ; HTN (hypertension ) I10 ; 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 ; Anxiety F41.9 and CAD (coronary artery disease) I25.[address] 17932- 2867 Nov, [place] [address]69- 3084 Nov, [place] 59533757- 5835 Nov, [facility] [id number] [place] [address] 30251- 8263 Nov, [facility] [address] 41925- 3644 Nov, [facility] [id number] [place] [address] 97536- 2679 Nov, Encounter for immunization Z23 ; Sleep apnea, obstructive G47.33 ; Obesity E66.9 ; Hyperlipidemia E78.5 ; Glaucoma H40.9 ; Chronic pain G89.29 ; Anxiety F41.9 ; Chronic tension headaches G44.229 and HTN (hypertension ) I10 [facility] [address] 32860- 8023 Nov, [facility] [address] 19338- 9054 Nov, [facility] [address] 46372- 3379 Nov, Dizziness R42 [facility] [id number] [place] [address] 42806- 8424 Nov, [facility] [id number] [place] [address] 86881- 4230 29 Oct, 2014 [facility] [id number] [place] [address] 96955- 2284 Oct, [facility] [id number] [place] [address] 57825- 7618 Oct, [facility] [id number] [place] [address] 03036- 4094 Oct, [facility] [address] 68137- 4546 17 Oct, 2014 Dizziness 780.4 ; Essential hypertension 401.9 ; Obesity 278.00 ; Hyperlipidemia 272.4 ; Chronic pain 338.29 ; Glaucoma 365.9 and Anxiety 300.00 [facility] [id number] [place] [address] 65794- 8086 Oct, Essential hypertension 401.9 ; Hyperlipidemia 272.4 ; Glaucoma 365.9 ; Obesity 278.00 ; Chronic pain 338.29 and Allergy to insects V15.06 [facility] [id number], [place] [address]- 6747 Sep, [facility] [address], [place] [address]- 3448 Sep, [facility] [id number] [place] [address] 260766- 9869 Sep, [facility] [address] [place] [address] 274043- 5924 Sep, [facility] [id number] [place] [address] 65184- 5395 Aug, Essential hypertension 401.9 ; Obesity 278.00 ; Hyperlipidemia 272.4 ; Glaucoma 365.9 ; Lipoma 214.9 ; Mitral valve prolapse 424.0 ; Angina at rest 413.9 ; Lymphedema 457.1 and Chronic pain 338.29 IMMUNIZATIONS No Known Immunizations SOCIAL HISTORY Never Assessed REASON FOR VISIT Pt came in to clinic, stated he was seen in [facility] this morning for URI symptoms was given Phenegran with Codiene cough syrup, was concerned he would be in trouble because of his other controlled meds, SPoke with Dr Álvarez in regards to this, she is ok and said to tell pt thank you for letting her know, notified pt and Kim LEVY-- Fransisca Gonzales RN PLAN OF CARE VITAL [...]
--- OUTSIDE RECORDS SUMMARY | 2018-02-04 14:02 | XMS REPORT ---
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 Name Role Phone MARISOLLILIA Unavailable PROBLEMS Type Condition ICD9-CM Code WFP59-OD Code Onset Dates Condition Status SNOMED Code Problem Hyperlipidemia E78.5 Active 31516836 Problem Sleep apnea, obstructive G47.33 Active 26800010 Problem Primary insomnia F51.01 Active 7231182 Problem Chronic pain G89.29 Active 80672282 Problem Morbid (severe) obesity due to excess calories E66.01 Active 658890727 Problem Myocarditis, unspecified chronicity, 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 Active 89224752 Problem Other male erectile dysfunction N52.8 Active 961446652 Problem 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 Active 244062952 Problem Body mass index (BMI) of 40.0-44.9 in adult Z68.41 Active 859223521 Problem Supraventricular tachycardia I47.1 Active 0383803 Problem Insomnia disorder with non-sleep disorder mental comorbidity G47.00 Active 16830024 Problem Chronic tension headaches G44.229 Active 113044553 Problem HTN (hypertension) I10 Active 35532400 Problem 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 Active 415154606 Problem Chronic pain syndrome G89.4 Active 100650929 Problem Migraine without aura and without status migrainosus, not intractable G43.009 Active 922128248 Problem Sarcoidosis D86.9 Active 29512234 Problem Problems related to release from intermediate Z65.2 Active 304600841690442 Problem 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 Active 17978049 Problem Mitral valve prolapse I34.1 Active 558947693 Problem Anxiety F41.9 Active 80737766 Problem Major depressive disorder, recurrent, moderate F33.1 Active 15203853 Problem Environmental allergies Z91.09 Active 514092776 Problem Arrhythmia as indication for cardiac pacemaker replacement I49.9 Active 08363878 Problem CAD (coronary artery disease) I25.10 Active 69234045 Problem Post-traumatic stress disorder, chronic F43.12 Active 399646241 ALLERGIES No Information ENCOUNTERS Encounter Location Date Diagnosis [facility] [id number] [place] [address] 32958- 9368 Dec, [facility] [id number] [place] [address] 80665- 6938 Dec, [facility] [id number] [place] [address] 13460- 7480 Nov, [facility] [id number] [place] [address] 92731- 0725 Nov, Left leg pain M79.[address] [id number] [id number] Nov, [facility] [id number] [place] [address] 31013- 4442 Nov, Encounter for long-term (current) use of other medications Z79.899 [facility] [id number] [place] [address] 85415- 4561 Nov, [facility] [id number] [place] [address] 43550- 8345 Nov, Left leg pain M79.605 [facility] [id number] [place] [address] [id number] Oct, Dental examination Z01.20 [facility] [id number] [place] [address] 77137- 6857 Oct, Insomnia disorder with non-sleep disorder mental comorbidity G47.00 [facility] [id number] [place] [address] 41547- 1541 Oct, Post-traumatic stress disorder, chronic F43.12 ; Insomnia disorder with non-sleep disorder mental comorbidity G47.00 and BMI 40.0-44.9, adult Z68.41 [facility] [id number] [place] [address] 21489- 2664 Oct, [facility] [id number] [place] [address] 29093 -0532 18 Oct, 2017 Insect bite (nonvenomous), left lower leg, initial encounter S80.862A ; Bitten or stung by nonvenomous insect and other nonvenomous arthropods, initial encounter W57.XXXA and BMI 40.0-44.9, adult Z68.41 [facility] [address] 12352- 1398 06 Oct, 2017 Left leg pain M79.605 [place] [address] 86013- 2022 04 Oct, 2017 Post-traumatic stress disorder, unspecified F43.10 ; Major depressive disorder, recurrent, moderate F33.1 and Problems related to release from intermediate Z65.2 [facility] [address] 70379- 4398 Sep, Arrhythmia as indication for cardiac pacemaker replacement I49.9 [place] [address] 12870- 1863 Sep, [facility] [id number] [place] [address] 84090- 2836 Sep, HTN (hypertension) I10 [facility] [id number] [place] [address] 38459- 1999 17 Sep, 2017 [place] [address] 46972- 2671 16 Sep, 2017 Body mass index (BMI) of 40.0-44.9 in adult Z68.41 ; Chronic pain G89.29 and Supraventricular tachycardia I47.1 [facility] [address] 94206- 2722 15 Sep, 2017 [facility] [id number] [place] [address] 12652- 1208 13 Sep, 2017 Sarcoidosis D86.9 [place] [address] [id number] [address]- 3141 Sep, Sarcoidosis D86.9 [facility] [id number] [place] [address] 57551- 4146 Sep, [facility] [address] [address]- 3976 Sep, [facility] [id number] [place] [address] 27515- 3754 Sep, [facility] [id number] [place] [address] 19364- 6837 Sep, [facility] [id number] [place] [address] 09735- 3828 Sep, Left leg pain M79.605 [facility] [id number] [place] [address] 31366- 4086 Sep, HTN (hypertension) I10 [facility] [id number] [place] [address] 82257- 8593 Sep, [facility] [id number] [place] [address] 23287- 7884 Sep, Post-traumatic stress disorder, unspecified F43.10 ; Major depressive disorder, recurrent, moderate F33.1 and Problems related to release from intermediate Z65.2 [facility] [address] [address]- 0688 Sep, [facility] [id number] [place] [address] 19744- 0138 Aug, [facility] [id number] [place] [address] 20676- 8743 Aug, Sarcoidosis D86.9 [facility] [address] [address]- 0699 Aug, Sarcoidosis D86.9 [facility] [address] [address]- 7151 Aug, HTN (hypertension) I10 [place] [id number] [place] [address] 20133- 2487 18 Aug, 2017 Post-traumatic stress disorder, unspecified F43.10 ; Major depressive disorder, recurrent, moderate F33.1 and Problems related to release from intermediate Z65.2 [place] [id number] [place] [address] 15243- 5228 11 Aug, 2017 [place] [address] 34583- 5688 09 Aug, 2017 Left leg pain M79.605 [place] [address] 24292- 5331 26 Jul, 2017 Post-traumatic stress disorder, chronic F43.12 ; Anxiety F41.9 ; Problems related to release from intermediate Z65.2 and BMI 40.0-44.9, adult Z68.41 [place] [address] 64701- 0523 20 Jul, 2017 HTN (hypertension) I10 ; Body mass index (BMI) of 40.0-44.9 in adult Z68.41 ; Acute swimmer''s ear of both sides H60.333 and Chronic pain G89.29 [place] [id number] [place] [address] 22227- 5595 19 Jul, 2017 Glaucoma H40.9 [place] [id number] [place] [address] 06787- 4663 14 Jul, 2017 [place] [id number] [place] [address] 09945- 8975 13 Jul, 2017 Sarcoidosis D86.9 [place] [address] 56335- 3341 12 Jul, 2017 Left leg pain M79.605 [place] [id number] [place] [address] 36718- 9771 12 Jul, 2017 Sarcoidosis D86.9 [place] [address] [place] [address]- 6115 Jul, Post-traumatic stress disorder, unspecified F43.10 ; Major depressive disorder, recurrent, moderate F33.1 and Problems related to release from intermediate Z65.2 [facility] [id number] [place] [address] 78444- 1945 June, [facility] [id number] [place] [address] 98131 -2886 June, Sore throat J02.9 and BMI 40.0-44.9, adult Z68.41 [facility] [id number] [place] [address] 37621- 2313 June, [facility] [id number] [place] [address] 28859- 7371 June, [facility] [id number] [place] [address] 10765- 5115 June, [facility] [id number] [place] [address] 78418- 6387 June, Left leg pain M79.605 [facility] [id number] [place] [address] 09977- 4534 June, Sarcoidosis D86.9 [facility] [id number] [place] [address] 89335- 1603 June, [facility] [id number] [place] [address] 55006- 7152 June, [facility] [id number] [place] [address] 12019- 0795 June, Left leg pain M79.605 [facility] [id number] [place] [address] 18177- 4042 May, [facility] [id number] [place] [address] 65611- 9480 May, [facility] [id number] [place] [address] 89431- 8202 May, [facility] [id number] [place] [address] 44255- 1570 May, Left leg pain M79.605 [facility] [id number] [place] [address] 77798- 3463 11 May, 2017 Post-traumatic stress disorder, unspecified F43.10 ; Major depressive disorder, recurrent, moderate F33.1 and Problems related to release from intermediate Z65.2 [place] [id number] [place] [address] 59224- 9922 04 May, 2017 Chronic pain G89.29 ; Anxiety F41.9 ; Chest pain, unspecified type R07.9 and BMI 40.0-44.9, adult Z68.41 [place] [id number] [place] [address] 69634- 8558 30 Apr, 2017 [place] [id number] [place] [address] 29071- 6385 Apr, Left leg pain M79.605 [place] [id number] [place] [address] 81022- 8095 27 Apr, 2017 Post-traumatic stress disorder, unspecified F43.10 ; Problems related to release from intermediate Z65.2 ; Anxiety F41.9 and BMI 40.0-44.9 , adult Z68.41 [place] [id number] [place] [address] 41447- 6541 Apr, [place] [id number] [place] [address] 19014- 1629 Apr, Left leg pain M79.605 [place] [id number] [place] [address] 66963- 5198 13 Apr, 2017 Post-traumatic stress disorder, unspecified F43.10 ; Major depressive disorder, recurrent, moderate F33.1 and Problems related to release from intermediate Z65.2 [place] [id number] [place] [address] 89407- 7373 Apr, [facility] [address] 64847- 0091 Apr, Chronic pain G89.29 ; 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 ; Morbid (severe) obesity due to excess calories E66.01 ; Anxiety F41.9 and BMI 40.0-44.9, adult Z68.41 [facility] [address] 80741 -3368 Apr, Sore throat J02.9 and BMI 40.0-44.9, adult Z68.41 [place] [address] 55822- 1254 02 Apr, 2017 Left leg pain M79.605 [facility] [address] [id number] Mar, Dental examination Z01.[address] 99435- 8603 Mar, [facility] [address] 81305 -8802 Mar, Cough R05 ; Viral gastroenteritis A08.4 and BMI 40.0-44.9, adult Z68.41 [place] [address] 59393- 4746 Mar, Left leg pain M79.605 [place] [address] 62877- 6439 Mar, Post-traumatic stress disorder, unspecified F43.10 ; Major depressive disorder, recurrent, moderate F33.1 and Problems related to release from intermediate Z65.[address] 08371- 2541 Feb, Left leg pain M79.605 [place] [address] 83328- 3748 Feb, [place] [id number] [place] [address] 64443- 7940 Feb, BMI 40.0-44.9, adult Z68.41 ; Chronic pain syndrome G89.4 ; Migraine without aura and without status migrainosus, not intractable G43.009 ; Mitral valve prolapse I34.1 and 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 [place] [id number] [place] [address] 43787- 1400 Feb, Post-traumatic stress disorder, chronic F43.12 ; Anxiety F41.9 ; Problems related to release from intermediate Z65.2 and BMI 40.0-44.9, adult Z68.41 [place] [address] 42248- 9022 Feb, Post-traumatic stress disorder, unspecified F43.10 ; Major depressive disorder, recurrent, moderate F33.1 and Problems related to release from intermediate Z65.2 [place] [id number] [place] [address] 16127- 3570 Feb, Left leg pain M79.605 [place] [id number] [place] [address] 68132- 0594 Jan, Post-traumatic stress disorder, unspecified F43.10 ; Major depressive disorder, recurrent, moderate F33.1 and Problems related to release from intermediate Z65.2 [place] [id number] [place] [address] 60484- 7520 Jan, [place] [id number] [place] [address] 27999- 5112 Jan, [place] [id number] [place] [address] 81832- 2572 Jan, Anxiety F41.9 [place] [id number] [place] [address] 49868- 2909 Jan, Left leg pain M79.605 [place] [id number] [place] [address] 81883- 4435 Dec, Left leg pain M79.605 [facility] [address] [address]- 2835 Dec, [facility] [id number] [place] [address] 87385- 8741 Dec, Post-traumatic stress disorder, unspecified F43.10 ; Major depressive disorder, recurrent, moderate F33.1 and Problems related to release from intermediate Z65.2 [facility] [id number] [place] [address] 34585- 0270 Nov, Chronic pain G89.29 and Anxiety F41.9 [place] [id number] [place] [address] 892402- 5183 24 Nov, 2016 Chronic pain G89.29 and Anxiety F41.9 [place] [address] [place] [address] 29815- 7800 16 Nov, 2016 Post-traumatic stress disorder, unspecified F43.10 ; Major depressive disorder, recurrent, moderate F33.1 and Problems related to release from intermediate Z65.2 [facility] [id number] [place] [address] 60449- 9801 09 Nov, 2016 Other abnormal findings in specimens from other organs, systems and tissues R89.8 ; Other male erectile dysfunction N52.8 ; Body mass index (BMI) of 40.0-44.9 in adult Z68.41 and Morbid (severe) obesity due to excess calories E66.01 [facility] [address] [place] [address] 94908- 0767 Nov, Post-traumatic stress disorder, unspecified F43.10 ; Major depressive disorder, recurrent, moderate F33.1 and Problems related to release from intermediate Z65.2 [facility] [id number] [place] [address] [id number] Oct, Dental examination Z01.20 [facility] [address] [address]- 3816 Oct, [facility] [id number] [place] [address] 42033- 3764 Oct, Encounter for immunization Z23 [place] [id number] [place] [address] 67099- 3452 Oct, Chronic pain G89.29 ; Anxiety F41.9 ; Arrhythmia as indication for cardiac pacemaker replacement I49.9 and Glaucoma H40.9 [place] [id number] [place] [address] 43010- 2651 Oct, Anxiety F41.9 ; Post-traumatic stress disorder, chronic F43.12 and Problems related to release from intermediate Z65.2 [place] [id number] [place] [address] 63063- 8286 Oct, Post-traumatic stress disorder, unspecified F43.10 ; Major depressive disorder, recurrent, moderate F33.1 and Problems related to release from intermediate Z65.2 [place] [id number] [place] [address] 64803- 4187 Sep, Chronic pain G89.29 and Anxiety F41.9 [place] [id number] [place] [address] 04502- 5728 Sep, Post-traumatic stress disorder, unspecified F43.10 ; Major depressive disorder, recurrent, moderate F33.1 and Problems related to release from intermediate Z65.2 [place] [id number] [place] [address] 65575- 4890 Sep, Post-traumatic stress disorder, unspecified F43.10 ; Major depressive disorder, recurrent, moderate F33.1 and Problems related to release from intermediate Z65.2 [place] [id number] [place] [address] 07427- 6062 Sep, Chronic pain G89.29 [place] [id number] [place] [address] 99280- 8203 Aug, Dental caries, unspecified K02.9 [place] [id number] [place] [address] 59992- 2099 Aug, Sleep apnea, obstructive G47.33 ; Obesity E66.9 ; Chronic pain G89.29 ; HTN (hypertension) I10 ; Major depressive disorder, recurrent, moderate F33.1 ; Anxiety F41.9 ; Chronic tension headaches G44.229 ; Mitral valve prolapse I34.1 ; Arrhythmia as indication for cardiac pacemaker replacement I49.9 ; Dental caries, unspecified K02.9 ; Primary insomnia F51.01 and Hyperlipidemia E78.5 [facility] [address] 62298- 0435 Aug, Post-traumatic stress disorder, unspecified F43.10 ; Major depressive disorder, recurrent, moderate F33.1 and Problems related to release from intermediate Z65.2 [facility] [address] 61677- 2990 Aug, Dental examination Z01.20 [facility] [id number] [place] [address] [id number] Aug, Dental examination Z01.20 [facility] [address] 66468- 3086 Aug, Post-traumatic stress disorder, unspecified F43.10 ; Major depressive disorder, recurrent, moderate F33.1 and Problems related to release from intermediate Z65.2 [facility] [id number] [place] [address] 31042- 3869 Aug, Chronic pain G89.29 and Primary insomnia F51.01 [facility] [id number] [place] [address] 46919- 7152 Jul, [facility] [id number] [place] [address] 01881- 4617 Jul, [facility] [address] 65595- 8763 Jul, Nausea R11.0 [facility] [id number] [place] [address] 63928- 8236 Jul, Arrhythmia as indication for cardiac pacemaker replacement I49.9 [place] [address] [address]- 5372 13 Jul, 2016 Post-traumatic stress disorder, unspecified F43.10 ; Major depressive disorder, recurrent, moderate F33.1 and Problems related to release from intermediate Z65.2 [place] [id number] [place] [address] 64727- 1847 09 Jul, 2016 Anxiety F41.9 [place] [id number] [place] [address] 34547- 7624 08 Jul, 2016 Chronic pain G89.29 [place] [id number] [place] [address] 90479- 6407 02 Jul, 2016 Sleep apnea, obstructive G47.33 ; Hyperlipidemia E78.5 ; Chronic pain G89.29 ; 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 ; Major depressive disorder, recurrent, moderate F33.1 ; Anxiety F41.9 ; Mitral valve prolapse I34.1 ; Arrhythmia as indication for cardiac pacemaker replacement I49.9 ; Primary insomnia F51.01 ; Bilateral headaches R51 and Environmental allergies Z91.09 [place] [id number] [place] [address] 49901- 6698 Jul, Post-traumatic stress disorder, unspecified F43.10 ; Major depressive disorder, recurrent, moderate F33.1 and Problems related to release from intermediate Z65.2 [place] [address] [place] [address] 24411- 3756 June, Post-traumatic stress disorder, chronic F43.12 ; Anxiety F41.9 ; Problems related to release from intermediate Z65.2 ; Sleep apnea, obstructive G47.33 and Primary insomnia F51.01 [place] [id number] [place] [address] 16566- 0483 June, [place] [id number] [place] [address] 83453- 0300 June, [place] [id number] [place] [address] 62153- 0656 June, [place] [address] [address]- 4937 June, Chronic pain G89.29 [place] [id number] [place] [address] 98967- 9383 June, Chronic pain G89.29 [place] [address] [address]- 3603 June, Lipoma of left lower extremity D17.24 ; Open wound T14.8 and Swelling of left lower extremity M79.89 [place] [id number] [place] [address] 49125- 6269 June, Post-traumatic stress disorder, unspecified F43.10 ; Major depressive disorder, recurrent, moderate F33.1 and Problems related to release from intermediate Z65.2 [place] [id number] [place] [address] 21752- 1594 May, Lipoma of left lower extremity D17.24 ; Major depressive disorder, recurrent, moderate F33.1 ; Sleep apnea, obstructive G47.33 ; Hyperlipidemia E78.5 ; Obesity E66.9 ; HTN (hypertension) I10 ; Glaucoma H40.9 ; CAD (coronary artery disease) I25.10 ; Chronic tension headaches G44.229 ; Chronic pain G89.29 ; Anxiety F41.9 ; Nausea R11.0 and Primary insomnia F51.01 [place] [address] [address]- 3107 May, [place] [address] [address]- 5328 May, Chronic pain G89.29 [place] [id number] [address] May, [place] [id number] [place] [phone] Apr, Post-traumatic stress disorder, unspecified F43.10 ; Major depressive disorder, recurrent, moderate F33.1 and Problems related to release from intermediate Z65.2 [place] [id number] [place] [address] Apr, Primary insomnia F51.01 ; Post-traumatic stress disorder, chronic F43.12 and Problems related to release from intermediate Z65.2 [place] [address] [place] [id number] [place] [address] 17 Apr, 2016 Post-traumatic stress disorder, unspecified F43.10 ; Major depressive disorder, recurrent, moderate F33.1 and Problems related to release from intermediate Z65.2 [place] [address] [place] [id number] [place] [address] Apr, [place] [address] [place] [id number] [place] [address] 2008 Apr, Sleep apnea, obstructive G47.33 ; Chronic pain G89.29 ; HTN (hypertension) I10 ; Mitral valve prolapse I34.1 ; Shoulder pain, left M25.512 ; Arrhythmia as indication for cardiac pacemaker replacement I49.9 ; Glaucoma H40.9 ; Bilateral headaches R51 ; Environmental allergies Z91.09 ; Primary insomnia F51.01 and Nausea R11.0 [place] [address] [id number] [place] [address] 46790- 7777 Apr, [place] [id number] [place] [address] 38076- 1640 Apr, [place] [address] [id number] [place] [address] 51339- 1897 Apr, Post-traumatic stress disorder, unspecified F43.10 ; Major depressive disorder, recurrent, moderate F33.1 and Problems related to release from intermediate Z65.2 [place] [address] [id number] [place] [address] 87438- 8402 Apr, HTN (hypertension) I10 [place] [address] [id number] [place] [address] 21774- 8926 Apr, HTN (hypertension) I10 [place] [address] [place] [id number] [place] [address] 85148- 6764 14 Mar, 2016 Chronic pain G89.29 ; Primary insomnia F51.01 and Problems related to release from intermediate Z65.2 [place] [address] [place] [id number] [place] [address] 41614- 6742 07 Mar, 2016 Post-traumatic stress disorder, unspecified F43.10 ; Major depressive disorder, recurrent, moderate F33.1 and Problems related to release from intermediate Z65.2 [place] [address] 86861- 6081 Feb, Post-traumatic stress disorder, unspecified F43.10 ; Major depressive disorder, recurrent, moderate F33.1 and Problems related to release from intermediate Z65.2 [place] [address] [place] [id number] [place] [address] 70761- 2112 Feb, Chronic tension headaches G44.229 [place] [id number] [place] [address] 38622- 2765 Feb, Sleep apnea, obstructive G47.33 ; Obesity E66.9 ; Hyperlipidemia E78.5 ; Glaucoma H40.9 ; Chronic pain G89.29 ; HTN (hypertension ) I10 ; 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 ; 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 ; Chronic tension headaches G44.229 ; Cough R05 ; CAD (coronary artery disease) I25.10 ; Problems related to release from intermediate Z65.2 ; Arrhythmia as indication for cardiac pacemaker replacement I49.9 and Primary insomnia F51.[id number] [place] [address] 11347- 2174 17 Feb, 2016 Post-traumatic stress disorder, unspecified F43.10 and Chronic pain G89.29 [place] [id number] [place] [address] 97006- 2611 Feb, [facility] [id number] [place] [address] [id number] Feb, Dental caries K02.[address] 28397- 5267 Feb, [facility] [id number] [place] [address] 86824- 7703 Feb, Post-traumatic stress disorder, unspecified F43.10 ; Major depressive disorder, recurrent, moderate F33.1 and Problems related to release from intermediate Z65.2 [place] [address] [id number] [place] [address] 43114- 0388 Jan, Sleep apnea, obstructive G47.33 and Chronic pain G89.29 [place] [address] [id number] [place] [address] 99342- 0206 Jan, [place] [address] [id number] [place] [address] 58668- 2390 Jan, Dental examination Z01.20 [place] [address] [id number] [place] [address] 55449- 9559 Jan, [place] [address] [id number] [place] [address] 88529- 7893 Jan, [place] [address] [id number] [place] [address] 74224- 6898 Dec, Post-traumatic stress disorder, unspecified F43.10 ; Major depressive disorder, recurrent, moderate F33.1 and Problems related to release from intermediate Z65.2 [place] [address] [id number] [place] [address] 20703- 3923 Dec, Encounter for immunization Z23 ; Problems related to release from intermediate Z65.2 ; Sleep apnea, obstructive G47.33 and Post-traumatic stress disorder, chronic F43.12 [place] [address] [id number] [place] [address] 08464- 7100 Dec, Sleep apnea, obstructive G47.33 ; Hyperlipidemia E78.5 ; Chronic pain G89.29 ; Glaucoma H40.9 ; HTN (hypertension) I10 ; Post-traumatic stress disorder, unspecified F43.10 ; Anxiety F41.9 ; Chronic tension headaches G44.229 ; Mitral valve prolapse I34.1 and CAD (coronary artery disease) I25.10 [place] [id number] [place] [address] 76907- 8777 Dec, Post-traumatic stress disorder, unspecified F43.10 ; Major depressive disorder, recurrent, moderate F33.1 and Problems related to release from intermediate Z65.2 [place] [address] [id number] [place] [address] 09557- 5235 Nov, Chronic pain G89.29 [place] [address] [id number] [place] [address] 674716- 0802 Nov, Post-traumatic stress disorder, unspecified F43.10 ; Major depressive disorder, recurrent, moderate F33.1 and Problems related to release from intermediate Z65.2 [place] [address] [id number] [place] [address] 15784- 3911 Oct, [place] [address] [id number] [place] [address] 01966- 3489 Oct, [place] [address] [id number] [place] [address] 48523- 7805 16 Oct, 2015 Post-traumatic stress disorder, unspecified F43.10 ; Major depressive disorder, recurrent, moderate F33.1 and Problems related to release from intermediate Z65.2 [place] [address] [id number] [place] [address] 54339- 8487 08 Oct, 2015 [place] [address] [id number] [place] [address] 71258- 8021 07 Oct, 2015 Environmental allergies Z91.09 ; Cough R05 and 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 [place] [address] [id number] [place] [address] 25593- 8195 Sep, [place] [address] [id number] [place] [address] 84907- 3498 Sep, Post-traumatic stress disorder, unspecified F43.10 ; Major depressive disorder, recurrent, moderate F33.1 and Problems related to release from intermediate Z65.2 [place] [address] [address]- 0280 16 Sep, 2015 Chronic pain G89.29 [place] [address] [id number] [place] [address] 23109- 2659 Sep, Pain in left shoulder M25.512 ; Pain in right shoulder M25.511 and Other chronic pain G89.29 [place] [address] [place] [id number] [place] [address] 43449- 5912 Sep, [place] [address] [place] [id number] [place] [address] 96426- 9578 Sep, [place] [address] 06676- 8816 Sep, [facility] [id number] [place] [address] [id number] Aug, Dental examination Z01.20 [place] [id number] [place] [address] 01049- 4948 Aug, Post-traumatic stress disorder, unspecified F43.10 ; Open- angle glaucoma of both 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 and Problems related to release from intermediate Z65.2 [place] [address] [id number] [place] [address] 75432- 7582 Aug, [place] [address] [id number] [place] [address] 29642- 2629 Aug, Sleep apnea, obstructive G47.33 ; Obesity E66.9 ; Hyperlipidemia E78.5 ; Bilateral headaches R51 ; HTN (hypertension) I10 ; Post- traumatic stress disorder, unspecified F43.10 ; Anxiety F41.9 ; Neuropathy G62.9 ; Glaucoma H40.9 and Chronic pain G89.29 [facility] [id number] [place] [address] [id number] Aug, Encounter for dental examination Z01.20 [place] [address] [id number] [place] [address] 55267- 8956 Aug, Post-traumatic stress disorder, unspecified F43.10 ; Major depressive disorder, recurrent, moderate F33.1 and Problems related to release from intermediate Z65.2 [facility] [id number] [address]- 4268 Aug, [facility] [id number] [address]- 4730 Jul, [facility] [id number] [place] [address] 27095- 7546 Jul, Post-traumatic stress disorder, unspecified F43.10 and Major depressive disorder, recurrent, moderate F33.1 [facility] [id number] [place] [address] 31752- 6793 Jul, [facility] [id number] [place] [address] 48009- 7081 Jul, [facility] [id number] [place] [address] 55676- 8496 Jul, Chronic pain G89.29 [facility] [id number] [place] [address] 57857- 1141 June, Post-traumatic stress disorder, unspecified F43.10 and Major depressive disorder, recurrent, moderate F33.1 [facility] [id number] [place] [address] 14411- 0005 June, [facility] [id number] [address]- 1508 June, Chronic pain G89.29 [facility] [id number] [place] [address] 47934- 6975 June, Post-traumatic stress disorder, unspecified F43.10 and Major depressive disorder, recurrent, moderate F33.1 [facility] [id number] [address]- 9175 May, Post-traumatic stress disorder, unspecified F43.10 and Major depressive disorder, recurrent, moderate F33.1 [facility] [id number] [address]- 7123 May, [facility] [id number] [place] [address] 47826- 6366 08 May, 2015 [facility] [id number] [address]- 5614 May, [facility] [id number] [place] [address] 078357- 6252 Apr, [facility] [id number] [place] [address] 59251- 1474 Apr, Post-traumatic stress disorder, unspecified F43.10 and Sleep apnea, obstructive G47.33 [facility] [id number] [place] [address] 33442- 0330 Apr, [facility] [id number] [place] [address] 30367- 5495 Apr, Shoulder pain, left M25.512 [facility] [id number] [address]- 4463 Apr, Post-traumatic stress disorder, unspecified F43.10 and Major depressive disorder, recurrent, moderate F33.1 [facility] [id number] [address]- 4624 17 Apr, 2015 [facility] [id number] [address]- 7960 Apr, [facility] [id number] [address]- 7567 Apr, [facility] [address] [address]- 7884 Apr, Left shoulder pain M25.512 [facility] [id number] [address]- 9379 Mar, [facility] [id number] [place] [address] 70213- 5026 Mar, [place] [address] [place] [id number] [place] [address] 35136- 0256 Mar, [address] 45338- 2063 Mar, Sleep apnea, obstructive G47.33 ; Obesity E66.9 ; Chronic pain G89.29 ; Hyperlipidemia E78.5 ; HTN (hypertension) I10 ; 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 ; Major depressive disorder, recurrent, moderate F33.1 and Anxiety F41.[address] 38948- 7925 Mar, [address] 81772- 2088 Mar, Post-traumatic stress disorder, unspecified F43.10 and Major depressive disorder, recurrent, moderate F33.[address] 24454- 6581 Mar, [place] [address] 21694- 4578 Mar, HTN (hypertension) I10 ; 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 ; Obesity E66.9 ; Hyperlipidemia E78.5 ; Glaucoma H40.9 ; Chronic pain G89.29 and CAD (coronary artery disease) I25.10 [place] [id number] [place] [address] 36938- 1513 Feb, [place] [id number] [place] [address] 46241- 6157 Feb, Post-traumatic stress disorder, unspecified F43.10 ; Obesity E66.9 ; Sleep apnea, obstructive G47.33 and 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 [place] [id number] [place] [address] 01023- 3498 Feb, Post-traumatic stress disorder, unspecified F43.10 and Major depressive disorder, recurrent, moderate F33.[address] [place] [id number] [place] [address] 41224- 2949 Feb, [place] [address] 08766- 6845 Feb, [place] [address] [id number] [place] [address] 56926- 0763 Feb, HTN (hypertension) I10 ; Post-traumatic stress disorder, unspecified F43.10 ; 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 ; Obesity E66.9 ; Hyperlipidemia E78.5 ; Chronic pain G89.29 ; Glaucoma H40.9 ; Mitral valve prolapse I34.1 and Bilateral headaches R51 [address] 43439- 1735 Feb, [place] [address] 57841- 3065 Feb, Post-traumatic stress disorder, unspecified F43.10 and Major depressive disorder, recurrent, moderate F33.1 [place] [id number] [place] [address] 76913- 1878 Feb, [address] 11650- 1385 Feb, [place] [id number] [place] [address] 18101- 5270 Jan, [place] [id number] [place] [address] 31662- 6956 Jan, [place] [id number] [place] [address] 57445- 2855 Jan, Obesity E66.9 ; HTN (hypertension) I10 ; 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 ; Major depressive disorder, recurrent, moderate F33.1 ; Glaucoma H40.9 ; Hyperlipidemia E78.5 ; Sleep apnea, obstructive G47.33 ; Chronic pain G89.29 ; Anxiety F41.9 ; Chronic tension headaches G44.229 and Cough R05 [place] [address] [id number] [place] [address] 00870- 2194 Jan, [facility] [id number] [place] [address] 33785- 0828 Jan, [facility] [id number] [place] [address] 1516 Jan, Post-traumatic stress disorder, unspecified F43.10 ; Obesity E66.9 ; Sleep apnea, obstructive G47.33 and 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 [facility] [id number] [place] [address] 85811- 9825 Jan, [place] [address] [place] 393874- 0657 Jan, Post-traumatic stress disorder, unspecified F43.10 and Major depressive disorder, recurrent, moderate F33.[address] 35824- 5351 Dec, [facility] [id number] [place] [address] 01175- 5380 Dec, Sleep apnea, obstructive G47.33 ; Obesity E66.9 ; Hyperlipidemia E78.5 ; Glaucoma H40.9 ; Chronic pain G89.29 ; HTN (hypertension ) I10 ; 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 ; Anxiety F41.9 and CAD (coronary artery disease) I25.10 [place] [address] [place] [id number] [place] [address] 97721- 0241 Nov, [facility] [id number] [place] [address] 44422- 0748 Nov, [facility] [id number] [place] [address] 67167- 4542 Nov, [facility] [id number] [place] [address] 39679- 4883 Nov, [facility] [id number] [place] [address] 29142- 8612 Nov, [facility] [id number] [place] [address] 68193- 5887 Nov, Encounter for immunization Z23 ; Sleep apnea, obstructive G47.33 ; Obesity E66.9 ; Hyperlipidemia E78.5 ; Glaucoma H40.9 ; Chronic pain G89.29 ; Anxiety F41.9 ; Chronic tension headaches G44.229 and HTN (hypertension ) I10 [facility] [address] 74106- 9180 Nov, [facility] [address] 29179- 2589 Nov, [facility] [address] 86859- 8098 Nov, Dizziness R42 [facility] [address] 03610- 5195 Nov, [facility] [address] 21504- 3588 Oct, [facility] [address] 53662- 1639 Oct, [facility] [address] 68579- 6587 Oct, [facility] [address] 73600- 4891 Oct, [facility] [address] [place] [address] 48426- 2931 Oct, Dizziness 780.4 ; Essential hypertension 401.9 ; Obesity 278.00 ; Hyperlipidemia 272.4 ; Chronic pain 338.29 ; Glaucoma 365.9 and Anxiety 300.00 [facility] [address] [place] [address] 99869- 7713 02 Oct, 2014 Essential hypertension 401.9 ; Hyperlipidemia 272.4 ; Glaucoma 365.9 ; Obesity 278.00 ; Chronic pain 338.29 and Allergy to insects V15.06 [facility] [address] [place] [address] 48949- 8051 Sep, [facility] [address] [facility] [id number] [place] [address]- 8485 Sep, [facility] [address] [facility] [id number] [address]- 3789 Sep, [facility] [address] [facility] [id number] [address]- 0969 Sep, [facility] [address] [facility] [id number] [address]- 3216 Aug, Essential hypertension 401.9 ; Obesity 278.00 ; Hyperlipidemia 272.4 ; Glaucoma 365.9 ; Lipoma 214.9 ; Mitral valve prolapse 424.0 ; Angina at rest 413.9 ; Lymphedema 457.1 and Chronic pain 338.29 IMMUNIZATIONS No Known Immunizations SOCIAL HISTORY Never Assessed REASON FOR VISIT xanax refill PLAN OF CARE VITAL SIGNS MEDICATIONS Medication Instructions Dosage Frequency Start Date End Date Duration Status Xanax 1 MG Orally Twice a day for anxiety 1 tablet 30 days Active RESULTS No Results PROCEDURES No [...]
--- OUTSIDE RECORDS SUMMARY | 2018-02-04 14:03 | XMS REPORT ---
Author Author ALENA ÁLVAREZ [facility] Address [address] [place] [address] Care Team Providers Care [employer] Name Role Phone ALENA ÁLVAREZ Unavailable PROBLEMS Type Condition ICD9-CM Code DPP27-UR Code Onset Dates Condition Status SNOMED Code Problem Hyperlipidemia E78.5 Active 22930406 Problem Sleep apnea, obstructive G47.33 Active 86602869 Problem Primary insomnia F51.01 Active 6173817 Problem Chronic pain G89.29 Active 90161177 Problem Morbid (severe) obesity due to excess calories E66.01 Active 127070360 Problem Myocarditis, unspecified chronicity, 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 Active 74868423 Problem Other male erectile dysfunction N52.8 Active 557279083 Problem 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 Active 275966750 Problem Body mass index (BMI) of 40.0-44.9 in adult Z68.41 Active 273267228 Problem Supraventricular tachycardia I47.1 Active 9074959 Problem Insomnia disorder with non-sleep disorder mental comorbidity G47.00 Active 40196206 Problem Chronic tension headaches G44.229 Active 298472920 Problem HTN (hypertension) I10 Active 13683616 Problem 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 Active 989666162 Problem Chronic pain syndrome G89.4 Active 396930359 Problem Migraine without aura and without status migrainosus, not intractable G43.009 Active 342671802 Problem Sarcoidosis D86.9 Active 47567547 Problem Problems related to release from longterm Z65.2 Active 917461020166317 Problem 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 Active 35768256 Problem Mitral valve prolapse I34.1 Active 217866379 Problem Anxiety F41.9 Active 58620626 Problem Major depressive disorder, recurrent, moderate F33.1 Active 14238430 Problem Environmental allergies Z91.09 Active 539183869 Problem Arrhythmia as indication for cardiac pacemaker replacement I49.9 Active 70177335 Problem CAD (coronary artery disease) I25.10 Active 06210877 Problem Post-traumatic stress disorder, chronic F43.12 Active [id number] ALLERGIES No Information ENCOUNTERS Encounter Location Date Diagnosis [facility] [address] [place] [address] 30297- 4115 Dec, [facility] [id number] [place] [address] 60776- 6904 Dec, [facility] [id number] [place] [address] 53467- 8116 Nov, [facility] [id number] [place] [address] 80255- 8283 Nov, Left leg pain M79.[address] [id number] [id number] Nov, [facility] [id number] [place] [address] 09079- 3356 Nov, Encounter for long-term (current) use of other medications Z79.899 [facility] [address] [place] [address] 27794- 6847 Nov, [facility] [id number] [place] [address] 26465- 1078 Nov, Left leg pain M79.605 [facility] [address] [place] [address] [id number] Oct, Dental examination Z01.20 [facility] [id number] [place] [address] 44462- 5606 Oct, Insomnia disorder with non-sleep disorder mental comorbidity G47.00 [facility] [address] [place] [address] 91101- 0171 Oct, Post-traumatic stress disorder, chronic F43.12 ; Insomnia disorder with non-sleep disorder mental comorbidity G47.00 and BMI 40.0-44.9, adult Z68.41 [facility] [address] [place] [address] 12586- 7876 Oct, [facility] [address] [place] [address] 95213 -9303 18 Oct, 2017 Insect bite (nonvenomous), left lower leg, initial encounter S80.862A ; Bitten or stung by nonvenomous insect and other nonvenomous arthropods, initial encounter W57.XXXA and BMI 40.0-44.9, adult Z68.41 [facility] [address] 50485- 1022 06 Oct, 2017 Left leg pain M79.605 [place] [address] 38876- 3331 04 Oct, 2017 Post-traumatic stress disorder, unspecified F43.10 ; Major depressive disorder, recurrent, moderate F33.1 and Problems related to release from longterm Z65.2 [facility] [address] 69039- 3922 Sep, Arrhythmia as indication for cardiac pacemaker replacement I49.9 [place] [address] 43547- 8744 Sep, [facility] [id number] [place] [address] 18461- 9735 Sep, HTN (hypertension) I10 [facility] [id number] [place] [address] 24271- 3563 17 Sep, 2017 [place] [address] 90359- 9219 16 Sep, 2017 Body mass index (BMI) of 40.0-44.9 in adult Z68.41 ; Chronic pain G89.29 and Supraventricular tachycardia I47.1 [facility] [address] 42005- 9424 15 Sep, 2017 [facility] [id number] [place] [address] 88322- 6844 13 Sep, 2017 Sarcoidosis D86.9 [place] [address] [place] [address]- 6435 Sep, Sarcoidosis D86.9 [facility] [id number] [place] [address] 56530- 8446 Sep, [facility] [address] [address]- 4826 Sep, [facility] [id number] [place] [address] 51421- 7929 Sep, [facility] [id number] [place] [address] 07394- 9364 Sep, [facility] [id number] [place] [address] 74785- 8478 Sep, Left leg pain M79.605 [facility] [id number] [place] [address] 44439- 7118 Sep, HTN (hypertension) I10 [facility] [id number] [place] [address] 30958- 6655 Sep, [facility] [address] [place] [address] 79829- 6115 Sep, Post-traumatic stress disorder, unspecified F43.10 ; Major depressive disorder, recurrent, moderate F33.1 and Problems related to release from longterm Z65.2 [facility] [address] [address]- 1160 Sep, [facility] [id number] [place] [address] 04338- 5721 Aug, [facility] [address] [place] [address] 31449- 1985 Aug, Sarcoidosis D86.9 [facility] [address] [address]- 0069 Aug, Sarcoidosis D86.9 [facility] [address] [address]- 7603 Aug, HTN (hypertension) I10 [place] [id number] [place] [address] 07772- 6860 18 Aug, 2017 Post-traumatic stress disorder, unspecified F43.10 ; Major depressive disorder, recurrent, moderate F33.1 and Problems related to release from longterm Z65.2 [place] [id number] [place] [address] 85018- 4235 11 Aug, 2017 [place] [address] 78360- 7544 09 Aug, 2017 Left leg pain M79.605 [place] [address] 43671- 1672 26 Jul, 2017 Post-traumatic stress disorder, chronic F43.12 ; Anxiety F41.9 ; Problems related to release from longterm Z65.2 and BMI 40.0-44.9, adult Z68.41 [place] [address] 50468- 8764 20 Jul, 2017 HTN (hypertension) I10 ; Body mass index (BMI) of 40.0-44.9 in adult Z68.41 ; Acute swimmer''s ear of both sides H60.333 and Chronic pain G89.29 [place] [id number] [place] [address] 12273- 9181 19 Jul, 2017 Glaucoma H40.9 [place] [id number] [place] [address] 22756- 1667 14 Jul, 2017 [place] [id number] [place] [address] 60797- 6800 13 Jul, 2017 Sarcoidosis D86.9 [place] [address] 25214- 8536 12 Jul, 2017 Left leg pain M79.605 [place] [id number] [place] [address] 33814- 1213 12 Jul, 2017 Sarcoidosis D86.9 [place] [address] [place] [address]- 6595 Jul, Post-traumatic stress disorder, unspecified F43.10 ; Major depressive disorder, recurrent, moderate F33.1 and Problems related to release from longterm Z65.2 [facility] [id number] [place] [address] 09919- 4748 June, [facility] [id number] [place] [address] 24855 -3345 June, Sore throat J02.9 and BMI 40.0-44.9, adult Z68.41 [facility] [id number] [place] [address] 38826- 8151 June, [facility] [id number] [place] [address] 68804- 3425 June, [facility] [id number] [place] [address] 85925- 8851 June, [facility] [id number] [place] [address] 22119- 1799 June, Left leg pain M79.605 [facility] [id number] [place] [address] 14788- 6714 June, Sarcoidosis D86.9 [facility] [id number] [place] [address] 06293- 0265 June, [facility] [id number] [place] [address] 49084- 8159 June, [facility] [id number] [place] [address] 50034- 8199 June, Left leg pain M79.605 [facility] [id number] [place] [address] 97700- 4131 May, [facility] [id number] [place] [address] 16493- 5242 May, [facility] [id number] [place] [address] 34910- 5795 May, [facility] [address] [place] [address] 37808- 4762 May, Left leg pain M79.605 [facility] [address] [place] [address] 49322- 2355 11 May, 2017 Post-traumatic stress disorder, unspecified F43.10 ; Major depressive disorder, recurrent, moderate F33.1 and Problems related to release from longterm Z65.2 [place] [id number] [place] [address] 65110- 6623 04 May, 2017 Chronic pain G89.29 ; Anxiety F41.9 ; Chest pain, unspecified type R07.9 and BMI 40.0-44.9, adult Z68.41 [place] [id number] [place] [address] 78249- 2068 30 Apr, 2017 [place] [id number] [place] [address] 32991- 3922 Apr, Left leg pain M79.605 [place] [id number] [place] [address] 12654- 9951 27 Apr, 2017 Post-traumatic stress disorder, unspecified F43.10 ; Problems related to release from longterm Z65.2 ; Anxiety F41.9 and BMI 40.0-44.9 , adult Z68.41 [place] [id number] [place] [address] 89127- 3565 Apr, [place] [id number] [place] [address] 82427- 3188 Apr, Left leg pain M79.605 [place] [id number] [place] [address] 12959- 5025 13 Apr, 2017 Post-traumatic stress disorder, unspecified F43.10 ; Major depressive disorder, recurrent, moderate F33.1 and Problems related to release from longterm Z65.2 [place] [address] [place] [address] 07290- 0678 Apr, [facility] [address] 28170- 4313 Apr, Chronic pain G89.29 ; 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 ; Morbid (severe) obesity due to excess calories E66.01 ; Anxiety F41.9 and BMI 40.0-44.9, adult Z68.41 [facility] [address] 44168 -5393 Apr, Sore throat J02.9 and BMI 40.0-44.9, adult Z68.41 [place] [address] 36632- 0585 02 Apr, 2017 Left leg pain M79.605 [facility] [address] [id number] Mar, Dental examination Z01.[address] 06854- 6027 Mar, [facility] [address] 20603 -7379 Mar, Cough R05 ; Viral gastroenteritis A08.4 and BMI 40.0-44.9, adult Z68.41 [place] [address] 51602- 3387 Mar, Left leg pain M79.605 [place] [address] 45783- 4606 Mar, Post-traumatic stress disorder, unspecified F43.10 ; Major depressive disorder, recurrent, moderate F33.1 and Problems related to release from longterm Z65.[address] 46731- 1306 Feb, Left leg pain M79.605 [place] [address] 99002- 1215 Feb, [place] [id number] [place] [address] 86299- 6521 Feb, BMI 40.0-44.9, adult Z68.41 ; Chronic pain syndrome G89.4 ; Migraine without aura and without status migrainosus, not intractable G43.009 ; Mitral valve prolapse I34.1 and 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 [place] [id number] [place] [address] 74191- 8712 Feb, Post-traumatic stress disorder, chronic F43.12 ; Anxiety F41.9 ; Problems related to release from longterm Z65.2 and BMI 40.0-44.9, adult Z68.41 [place] [address] 62482- 6035 Feb, Post-traumatic stress disorder, unspecified F43.10 ; Major depressive disorder, recurrent, moderate F33.1 and Problems related to release from longterm Z65.2 [place] [id number] [place] [address] 53481- 7523 Feb, Left leg pain M79.605 [place] [id number] [place] [address] 22217- 3829 Jan, Post-traumatic stress disorder, unspecified F43.10 ; Major depressive disorder, recurrent, moderate F33.1 and Problems related to release from longterm Z65.2 [place] [id number] [place] [address] 26225- 7431 Jan, [place] [id number] [place] [address] 21634- 6253 Jan, [place] [id number] [place] [address] 75823- 8777 Jan, Anxiety F41.9 [place] [id number] [place] [address] 23570- 6904 Jan, Left leg pain M79.605 [place] [id number] [place] [address] 54505- 4066 Dec, Left leg pain M79.605 [facility] [address] [address]- 6530 Dec, [facility] [id number] [place] [address] 39669- 6588 Dec, Post-traumatic stress disorder, unspecified F43.10 ; Major depressive disorder, recurrent, moderate F33.1 and Problems related to release from longterm Z65.2 [facility] [id number] [place] [address] 20670- 0589 Nov, Chronic pain G89.29 and Anxiety F41.9 [place] [id number] [place] [address] 355562- 6845 24 Nov, 2016 Chronic pain G89.29 and Anxiety F41.9 [place] [address] [place] [address] 25558- 6658 16 Nov, 2016 Post-traumatic stress disorder, unspecified F43.10 ; Major depressive disorder, recurrent, moderate F33.1 and Problems related to release from longterm Z65.2 [facility] [address] [place] [address] 71389- 5080 09 Nov, 2016 Other abnormal findings in specimens from other organs, systems and tissues R89.8 ; Other male erectile dysfunction N52.8 ; Body mass index (BMI) of 40.0-44.9 in adult Z68.41 and Morbid (severe) obesity due to excess calories E66.01 [facility] [address] [place] [address] 52522- 9668 Nov, Post-traumatic stress disorder, unspecified F43.10 ; Major depressive disorder, recurrent, moderate F33.1 and Problems related to release from longterm Z65.2 [facility] [address] [place] [address] [id number] Oct, Dental examination Z01.20 [facility] [address] [address]- 7519 Oct, [facility] [id number] [place] [address] 87622- 0883 Oct, Encounter for immunization Z23 [place] [id number] [place] [address] 23529- 7173 Oct, Chronic pain G89.29 ; Anxiety F41.9 ; Arrhythmia as indication for cardiac pacemaker replacement I49.9 and Glaucoma H40.9 [place] [id number] [place] [address] 86880- 0766 Oct, Anxiety F41.9 ; Post-traumatic stress disorder, chronic F43.12 and Problems related to release from longterm Z65.2 [place] [id number] [place] [address] 70818- 8470 Oct, Post-traumatic stress disorder, unspecified F43.10 ; Major depressive disorder, recurrent, moderate F33.1 and Problems related to release from longterm Z65.2 [place] [id number] [place] [address] 01154- 8011 Sep, Chronic pain G89.29 and Anxiety F41.9 [place] [id number] [place] [address] 71129- 4803 Sep, Post-traumatic stress disorder, unspecified F43.10 ; Major depressive disorder, recurrent, moderate F33.1 and Problems related to release from longterm Z65.2 [place] [id number] [place] [address] 38427- 4564 Sep, Post-traumatic stress disorder, unspecified F43.10 ; Major depressive disorder, recurrent, moderate F33.1 and Problems related to release from longterm Z65.2 [place] [address] [place] [address] 56424- 4198 Sep, Chronic pain G89.29 [place] [id number] [place] [address] 06087- 9069 Aug, Dental caries, unspecified K02.9 [place] [id number] [place] [address] 98180- 5357 Aug, Sleep apnea, obstructive G47.33 ; Obesity E66.9 ; Chronic pain G89.29 ; HTN (hypertension) I10 ; Major depressive disorder, recurrent, moderate F33.1 ; Anxiety F41.9 ; Chronic tension headaches G44.229 ; Mitral valve prolapse I34.1 ; Arrhythmia as indication for cardiac pacemaker replacement I49.9 ; Dental caries, unspecified K02.9 ; Primary insomnia F51.01 and Hyperlipidemia E78.5 [facility] [address] 25328- 0235 Aug, Post-traumatic stress disorder, unspecified F43.10 ; Major depressive disorder, recurrent, moderate F33.1 and Problems related to release from longterm Z65.2 [facility] [address] 49924- 2502 Aug, Dental examination Z01.20 [facility] [id number] [place] [address] [id number] Aug, Dental examination Z01.20 [facility] [address] 07051- 7440 Aug, Post-traumatic stress disorder, unspecified F43.10 ; Major depressive disorder, recurrent, moderate F33.1 and Problems related to release from longterm Z65.2 [facility] [id number] [place] [address] 84483- 7665 Aug, Chronic pain G89.29 and Primary insomnia F51.01 [facility] [id number] [place] [address] 53148- 9321 Jul, [facility] [id number] [place] [address] 07404- 5208 Jul, [facility] [address] 30638- 9158 Jul, Nausea R11.0 [facility] [id number] [place] [address] 62592- 5080 Jul, Arrhythmia as indication for cardiac pacemaker replacement I49.9 [place] [address] [address]- 0338 13 Jul, 2016 Post-traumatic stress disorder, unspecified F43.10 ; Major depressive disorder, recurrent, moderate F33.1 and Problems related to release from longterm Z65.2 [place] [id number] [place] [address] 29966- 7511 09 Jul, 2016 Anxiety F41.9 [place] [id number] [place] [address] 47839- 9351 08 Jul, 2016 Chronic pain G89.29 [place] [id number] [place] [address] 85326- 7513 02 Jul, 2016 Sleep apnea, obstructive G47.33 ; Hyperlipidemia E78.5 ; Chronic pain G89.29 ; 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 ; Major depressive disorder, recurrent, moderate F33.1 ; Anxiety F41.9 ; Mitral valve prolapse I34.1 ; Arrhythmia as indication for cardiac pacemaker replacement I49.9 ; Primary insomnia F51.01 ; Bilateral headaches R51 and Environmental allergies Z91.09 [place] [id number] [place] [address] 82717- 1927 Jul, Post-traumatic stress disorder, unspecified F43.10 ; Major depressive disorder, recurrent, moderate F33.1 and Problems related to release from longterm Z65.2 [facility] [id number] [place] [phone] June, Post-traumatic stress disorder, chronic F43.12 ; Anxiety F41.9 ; Problems related to release from longterm Z65.2 ; Sleep apnea, obstructive G47.33 and Primary insomnia F51.01 [facility] [id number] [place] [phone] June, [facility] [id number] [place] [phone] June, [facility] [id number] [place] [phone] June, [facility] [id number] [address] June, Chronic pain G89.29 [facility] [id number] [place] [address] 14858- 9312 June, Chronic pain G89.29 [facility] [address] [address] 6[address] June, Lipoma of left lower extremity D17.24 ; Open wound T14.8 and Swelling of left lower extremity M79.89 [facility] [id number] [place] [address] 79415- 6813 June, Post-traumatic stress disorder, unspecified F43.10 ; Major depressive disorder, recurrent, moderate F33.1 and Problems related to release from longterm Z65.2 [facility] [address] [place] [address] 75256- 4648 May, Lipoma of left lower extremity D17.24 ; Major depressive disorder, recurrent, moderate F33.1 ; Sleep apnea, obstructive G47.33 ; Hyperlipidemia E78.5 ; Obesity E66.9 ; HTN (hypertension) I10 ; Glaucoma H40.9 ; CAD (coronary artery disease) I25.10 ; Chronic tension headaches G44.229 ; Chronic pain G89.29 ; Anxiety F41.9 ; Nausea R11.0 and Primary insomnia F51.01 [facility] [address], [place] [address] 2[address] May, [facility] [address], [place] [address] 8211 May, Chronic pain G89.29 [facility] [address], [place] [address]- 2104 May, [facility] [address] [place] [address] 31584- 4774 Apr, Post-traumatic stress disorder, unspecified F43.10 ; Major depressive disorder, recurrent, moderate F33.1 and Problems related to release from longterm Z65.2 [place] [address] [place] [address] 73755- 9678 Apr, Primary insomnia F51.01 ; Post-traumatic stress disorder, chronic F43.12 and Problems related to release from longterm Z65.2 [facility] [address] [place] [id number] [place] [address] 27930- 4197 17 Apr, 2016 Post-traumatic stress disorder, unspecified F43.10 ; Major depressive disorder, recurrent, moderate F33.1 and Problems related to release from longterm Z65.2 [facility] [address] [place] [id number] [place] [address] 32761- 6032 Apr, [facility] [address] [place] [id number] [place] [address] 40088- 9231 Apr, Sleep apnea, obstructive G47.33 ; Chronic pain G89.29 ; HTN (hypertension) I10 ; Mitral valve prolapse I34.1 ; Shoulder pain, left M25.512 ; Arrhythmia as indication for cardiac pacemaker replacement I49.9 ; Glaucoma H40.9 ; Bilateral headaches R51 ; Environmental allergies Z91.09 ; Primary insomnia F51.01 and Nausea R11.0 [facility] [address] [place] [id number] [place] [address] 19922- 9569 Apr, [facility] [place] [id number] [place] [address] 44010- 5467 Apr, [facility] [address] [place] [id number] [place] [address] 13226- 3393 Apr, Post-traumatic stress disorder, unspecified F43.10 ; Major depressive disorder, recurrent, moderate F33.1 and Problems related to release from longterm Z65.2 [facility] [address] [place] [id number] [place] [address] 64671- 0731 Apr, HTN (hypertension) I10 [facility] [address] [place] [id number] [place] [address] 71361- 4029 Apr, HTN (hypertension) I10 [facility] [address] [place] [id number] [place] [address] 78052- 9830 14 Mar, 2016 Chronic pain G89.29 ; Primary insomnia F51.01 and Problems related to release from longterm Z65.2 [facility] [address] [place] [id number] [place] [address] 97210- 8576 07 Mar, 2016 Post-traumatic stress disorder, unspecified F43.10 ; Major depressive disorder, recurrent, moderate F33.1 and Problems related to release from longterm Z65.2 [facility] [address] 33718- 3202 Feb, Post-traumatic stress disorder, unspecified F43.10 ; Major depressive disorder, recurrent, moderate F33.1 and Problems related to release from longterm Z65.2 [facility] [address] [place] [id number] [place] [address] 23334- 7978 Feb, Chronic tension headaches G44.229 [place] [id number] [place] [address] 58119- 7565 Feb, Sleep apnea, obstructive G47.33 ; Obesity E66.9 ; Hyperlipidemia E78.5 ; Glaucoma H40.9 ; Chronic pain G89.29 ; HTN (hypertension ) I10 ; 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 ; 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 ; Chronic tension headaches G44.229 ; Cough R05 ; CAD (coronary artery disease) I25.10 ; Problems related to release from longterm Z65.2 ; Arrhythmia as indication for cardiac pacemaker replacement I49.9 and Primary insomnia F51.[address] [place] [address] 37288- 4145 17 Feb, 2016 Post-traumatic stress disorder, unspecified F43.10 and Chronic pain G89.29 [place] [id number] [place] [address] 20265- 2636 Feb, [facility] [address] [place] [address] [id number] Feb, Dental caries K02.[address] 38682- 2709 Feb, [facility] [id number] [place] [address] 39642- 5485 Feb, Post-traumatic stress disorder, unspecified F43.10 ; Major depressive disorder, recurrent, moderate F33.1 and Problems related to release from longterm Z65.2 [facility] [place] [address] [place] [id number] [place] [address] 70033- 2089 Jan, Sleep apnea, obstructive G47.33 and Chronic pain G89.29 [facility] [address] [place] [id number] [place] [address] 63404- 3855 Jan, [facility] [place] [address] [place] [id number] [place] [address] 65058- 6669 Jan, Dental examination Z01.20 [facility] [address] [place] [id number] [place] [address] 67128- 8455 Jan, [facility] [address] [place] [id number] [place] [address] 82606- 7805 Jan, [facility] [address] [place] [id number] [place] [address] 80182- 8333 Dec, Post-traumatic stress disorder, unspecified F43.10 ; Major depressive disorder, recurrent, moderate F33.1 and Problems related to release from longterm Z65.2 [facility] [address] [place] [id number] [place] [address] 76870- 3847 Dec, Encounter for immunization Z23 ; Problems related to release from longterm Z65.2 ; Sleep apnea, obstructive G47.33 and Post-traumatic stress disorder, chronic F43.12 [facility] [address] [place] [id number] [place] [address] 89413- 0788 Dec, Sleep apnea, obstructive G47.33 ; Hyperlipidemia E78.5 ; Chronic pain G89.29 ; Glaucoma H40.9 ; HTN (hypertension) I10 ; Post-traumatic stress disorder, unspecified F43.10 ; Anxiety F41.9 ; Chronic tension headaches G44.229 ; Mitral valve prolapse I34.1 and CAD (coronary artery disease) I25.10 [facility] [place] [address] [place] [address] 65799- 2187 Dec, Post-traumatic stress disorder, unspecified F43.10 ; Major depressive disorder, recurrent, moderate F33.1 and Problems related to release from longterm Z65.2 [facility] [place] [address] [place] [id number] [place] [address] 41399- 9795 Nov, Chronic pain G89.29 [facility] [address] [place] [id number] [place] [address] 726911- 7314 Nov, Post-traumatic stress disorder, unspecified F43.10 ; Major depressive disorder, recurrent, moderate F33.1 and Problems related to release from longterm Z65.2 [facility] [place] [address] [place] [id number] [place] [address] 71768- 5347 Oct, [facility] [address] [place] [id number] [place] [address] 24315- 0555 Oct, [facility] [address] [place] [id number] [place] [address] 78668- 5885 16 Oct, 2015 Post-traumatic stress disorder, unspecified F43.10 ; Major depressive disorder, recurrent, moderate F33.1 and Problems related to release from longterm Z65.2 [facility] [address] [place] [id number] [place] [address] 18889- 7502 08 Oct, 2015 [facility] [address] [place] [id number] [place] [address] 17501- 6288 07 Oct, 2015 Environmental allergies Z91.09 ; Cough R05 and 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 [facility] [place] [address] [place] [id number] [place] [address] 10913- 8682 Sep, [facility] [address] [place] [id number] [place] [address] 28359- 3778 Sep, Post-traumatic stress disorder, unspecified F43.10 ; Major depressive disorder, recurrent, moderate F33.1 and Problems related to release from longterm Z65.2 [facility] [address], [place] [address]- 8691 16 Sep, 2015 Chronic pain G89.29 [facility] [place] [address] [place] [id number] [place] [address] 39290- 5023 Sep, Pain in left shoulder M25.512 ; Pain in right shoulder M25.511 and Other chronic pain G89.29 [facility] [place] [address] [place] [id number] [place] [address] 75988- 5617 Sep, [facility] [place] [address] [place] [id number] [place] [address] 81853- 9477 Sep, [facility] [address] 88830- 5393 Sep, [facility] [address] [place] [id number] [place] [address] [id number] Aug, Dental examination Z01.20 [place] [id number] [place] [address] 85381- 8785 Aug, Post-traumatic stress disorder, unspecified F43.10 ; Open- angle glaucoma of both 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 and Problems related to release from longterm Z65.2 [facility] [address] [place] [id number] [place] [address] 09986- 7132 Aug, [facility] [address] [place] [id number] [place] [address] 34192- 5805 Aug, Sleep apnea, obstructive G47.33 ; Obesity E66.9 ; Hyperlipidemia E78.5 ; Bilateral headaches R51 ; HTN (hypertension) I10 ; Post- traumatic stress disorder, unspecified F43.10 ; Anxiety F41.9 ; Neuropathy G62.9 ; Glaucoma H40.9 and Chronic pain G89.29 [facility] [address] [place] [id number] [place] [address] [id number] Aug, Encounter for dental examination Z01.20 [facility] [place] [address] [place] [id number] [place] [address] 72388- 1406 Aug, Post-traumatic stress disorder, unspecified F43.10 ; Major depressive disorder, recurrent, moderate F33.1 and Problems related to release from longterm Z65.2 [facility] [address], [place] [address]- 9038 Aug, [facility] [address] [place] [id number], [place] [address]- 7223 Jul, [facility] [address] [place] [id number] [place] [address] 09139- 5436 Jul, Post-traumatic stress disorder, unspecified F43.10 and Major depressive disorder, recurrent, moderate F33.1 [facility] [address] [place] [id number] [place] [address] 15009- 3914 Jul, [facility] [address] [place] [address] 67022- 2896 Jul, [facility] [address] [place] [id number] [place] [address] 56229- 4094 Jul, Chronic pain G89.29 [facility] [address] [place] [id number] [place] [address] 30158- 3521 June, Post-traumatic stress disorder, unspecified F43.10 and Major depressive disorder, recurrent, moderate F33.1 [facility] [address] [place] [address] 18361- 1329 June, [facility] [address], [place] [address]- 6729 June, Chronic pain G89.29 [facility] [address] [place] [id number] [place] [address] 50656- 2860 June, Post-traumatic stress disorder, unspecified F43.10 and Major depressive disorder, recurrent, moderate F33.1 [facility] [address] [place] [id number], [place] [address]- 9471 May, Post-traumatic stress disorder, unspecified F43.10 and Major depressive disorder, recurrent, moderate F33.1 [facility] [address], [place] [address]- 1257 May, [facility] [id number] [place] [address] 02892- 1065 08 May, 2015 [facility] [address], [place] [address]- 9186 May, [facility] [address] [place] [id number] [place] [address] 517997- 7294 Apr, [facility] [address] [place] [id number] [place] [address] 58048- 0015 Apr, Post-traumatic stress disorder, unspecified F43.10 and Sleep apnea, obstructive G47.33 [facility] [address] [place] [id number] [place] [address] 08252- 3797 Apr, [facility] [address] [place] [id number] [place] [address] 68641- 2163 Apr, Shoulder pain, left M25.512 [facility] [address] [place] [address] [id number] [address]- 9683 Apr, Post-traumatic stress disorder, unspecified F43.10 and Major depressive disorder, recurrent, moderate F33.1 [facility] [address], [place] [address]- 5789 17 Apr, 2015 [facility] [address], [place] [address]- 9166 Apr, [facility] [address] [place] [address] [id number] [address]- 3475 Apr, [facility] [address], [place] [address]- 3242 Apr, Left shoulder pain M25.512 [facility] [address], [place] [address]- 5360 Mar, [facility] [id number] [place] [address] 51380- 0477 Mar, [facility] [address] [place] [id number] [place] [address] 52868- 8671 Mar, [address] 89148- 1124 Mar, Sleep apnea, obstructive G47.33 ; Obesity E66.9 ; Chronic pain G89.29 ; Hyperlipidemia E78.5 ; HTN (hypertension) I10 ; 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 ; Major depressive disorder, recurrent, moderate F33.1 and Anxiety F41.[address] 93398- 2046 Mar, [address] 15895- 3085 Mar, Post-traumatic stress disorder, unspecified F43.10 and Major depressive disorder, recurrent, moderate F33.[address] 86261- 8925 Mar, [place] [address] 26824- 6132 Mar, HTN (hypertension) I10 ; 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 ; Obesity E66.9 ; Hyperlipidemia E78.5 ; Glaucoma H40.9 ; Chronic pain G89.29 and CAD (coronary artery disease) I25.10 [place] [id number] [place] [address] 07163- 5337 Feb, [place] [id number] [place] [address] 40252- 0194 Feb, Post-traumatic stress disorder, unspecified F43.10 ; Obesity E66.9 ; Sleep apnea, obstructive G47.33 and 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 [place] [id number] [place] [address] 81874- 0980 Feb, Post-traumatic stress disorder, unspecified F43.10 and Major depressive disorder, recurrent, moderate F33.[address] [place] [id number] [place] [address] 90414- 9542 Feb, [place] [address] 72812- 9398 Feb, [place] [address] [place] [id number] [place] [address] 91352- 6659 Feb, HTN (hypertension) I10 ; Post-traumatic stress disorder, unspecified F43.10 ; 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 ; Obesity E66.9 ; Hyperlipidemia E78.5 ; Chronic pain G89.29 ; Glaucoma H40.9 ; Mitral valve prolapse I34.1 and Bilateral headaches R51 [address] 27501- 8566 Feb, [place] [address] 36704- 1004 Feb, Post-traumatic stress disorder, unspecified F43.10 and Major depressive disorder, recurrent, moderate F33.1 [place] [id number] [place] [address] 49800- 5297 Feb, [address] 57776- 5726 Feb, [place] [id number] [place] [address] 75020- 8848 Jan, [place] [id number] [place] [address] 49663- 1753 Jan, [place] [id number] [place] [address] 61131- 2047 Jan, Obesity E66.9 ; HTN (hypertension) I10 ; 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 ; Major depressive disorder, recurrent, moderate F33.1 ; Glaucoma H40.9 ; Hyperlipidemia E78.5 ; Sleep apnea, obstructive G47.33 ; Chronic pain G89.29 ; Anxiety F41.9 ; Chronic tension headaches G44.229 and Cough R05 [place] [address] [place] [id number] [place] [address] 13219- 1639 Jan, [facility] [address] [place] [id number] [place] [address] 67874- 9357 Jan, [facility] [address] [place] [id number] [place] 0783 Jan, Post-traumatic stress disorder, unspecified F43.10 ; Obesity E66.9 ; Sleep apnea, obstructive G47.33 and 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 [facility] [address] [place] [id number] [place] [address] 26482- 2485 Jan, [place] [address] [place] [address]86212- 9733 Jan, Post-traumatic stress disorder, unspecified F43.10 and Major depressive disorder, recurrent, moderate F33.[address] 98716- 7738 Dec, [facility] [address] [place] [id number] [place] [address] 51424- 8994 Dec, Sleep apnea, obstructive G47.33 ; Obesity E66.9 ; Hyperlipidemia E78.5 ; Glaucoma H40.9 ; Chronic pain G89.29 ; HTN (hypertension ) I10 ; 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 ; Anxiety F41.9 and CAD (coronary artery disease) I25.10 [place] [address] [place] [id number] [place] [address] 97433- 2877 Nov, [facility] [address] [place] [id number] [place] [address] 12543- 0472 Nov, [facility] [address] [place] [id number] [place] [address] 51900- 4164 Nov, [facility] [address] [place] [id number] [place] [address] 62811- 7314 Nov, [facility] [address] [place] [id number] [place] [address] 90579- 3858 Nov, [facility] [address] [place] [id number] [place] [address] 30171- 4735 Nov, Encounter for immunization Z23 ; Sleep apnea, obstructive G47.33 ; Obesity E66.9 ; Hyperlipidemia E78.5 ; Glaucoma H40.9 ; Chronic pain G89.29 ; Anxiety F41.9 ; Chronic tension headaches G44.229 and HTN (hypertension ) I10 [facility] [address] 28491- 8120 Nov, [facility] [address] 34704- 6114 Nov, [facility] [address] 52720- 3374 Nov, Dizziness R42 [facility] [address] 61666- 0804 Nov, [facility] [address] 49884- 7350 Oct, [facility] [address] 65709- 8352 Oct, [facility] [address] 44201- 9815 Oct, [facility] [address] 94659- 6941 Oct, [facility] [address] [place] [address] 71845- 6483 Oct, Dizziness 780.4 ; Essential hypertension 401.9 ; Obesity 278.00 ; Hyperlipidemia 272.4 ; Chronic pain 338.29 ; Glaucoma 365.9 and Anxiety 300.00 [facility] [address] [place] [address] 75469- 4663 02 Oct, 2014 Essential hypertension 401.9 ; Hyperlipidemia 272.4 ; Glaucoma 365.9 ; Obesity 278.00 ; Chronic pain 338.29 and Allergy to insects V15.06 [facility] [address] [place] [address] 16887- 0244 Sep, [facility] [address] [facility] [id number] [place] [address]- 7663 Sep, [facility] [address] [facility] [id number] [address]- 2976 Sep, [facility] [address] [facility] [id number] [address]- 7030 Sep, [facility] [address] [facility] [id number] [address]- 9646 Aug, Essential hypertension 401.9 ; Obesity 278.00 ; Hyperlipidemia 272.4 ; Glaucoma 365.9 ; Lipoma 214.9 ; Mitral valve prolapse 424.0 ; Angina at rest 413.9 ; Lymphedema 457.1 and Chronic pain 338.29 IMMUNIZATIONS No Known Immunizations SOCIAL HISTORY Never Assessed REASON FOR VISIT Refill Request PLAN OF CARE VITAL SIGNS MEDICATIONS Medication Instructions Dosage Frequency Start Date End Date Duration Status Gabapentin 300 MG Orally Once a day [...]
--- OUTSIDE RECORDS SUMMARY | 2018-02-04 14:04 | XMS REPORT ---
Author Author ALENA ÁLVAREZ [facility] Address [address] [place] [address] Care Team Providers Care Marketing Systems Analyst Name Role Phone ALENA ÁLVAREZ Unavailable PROBLEMS Type Condition ICD9-CM Code VBJ48-OL Code Onset Dates Condition Status SNOMED Code Problem Hyperlipidemia E78.5 Active 53715587 Problem Sleep apnea, obstructive G47.33 Active 73260150 Problem Primary insomnia F51.01 Active 6900845 Problem Chronic pain G89.29 Active 97420308 Problem Morbid (severe) obesity due to excess calories E66.01 Active 406549931 Problem Myocarditis, unspecified chronicity, 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 Active 18022756 Problem Other male erectile dysfunction N52.8 Active 888547938 Problem 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 Active 522514391 Problem Body mass index (BMI) of 40.0-44.9 in adult Z68.41 Active 408881894 Problem Supraventricular tachycardia I47.1 Active 3248922 Problem Insomnia disorder with non-sleep disorder mental comorbidity G47.00 Active 15295751 Problem Chronic tension headaches G44.229 Active 244575775 Problem HTN (hypertension) I10 Active 54571152 Problem 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 Active 121411768 Problem Chronic pain syndrome G89.4 Active 752599323 Problem Migraine without aura and without status migrainosus, not intractable G43.009 Active 269951557 Problem Sarcoidosis D86.9 Active 23302732 Problem Problems related to release from skilled nursing Z65.2 Active 553023153104147 Problem 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 Active 67018448 Problem Mitral valve prolapse I34.1 Active 061360915 Problem Anxiety F41.9 Active 64447644 Problem Major depressive disorder, recurrent, moderate F33.1 Active 01222222 Problem Environmental allergies Z91.09 Active 210497393 Problem Arrhythmia as indication for cardiac pacemaker replacement I49.9 Active 17972522 Problem CAD (coronary artery disease) I25.10 Active 73063640 Problem Post-traumatic stress disorder, chronic F43.12 Active 470201818 ALLERGIES No Information ENCOUNTERS Encounter Location Date Diagnosis [facility] [id number] [place] [address] 79512- 8789 Dec, [facility] [id number] [place] [address] 26762- 0419 Nov, Left leg pain M79.[address] [id number] [id number] Nov, [facility] [id number] [place] [address] 00673- 1287 Nov, Encounter for long-term (current) use of other medications Z79.899 [facility] [id number] [place] [address] 88129- 0173 Nov, [facility] [id number] [place] [address] 54507- 4433 Nov, Left leg pain M79.605 [facility] [id number] [place] [address] [id number] 28 Oct, 2017 Dental examination Z01.20 [facility] [id number] [place] [address] 54452- 1355 Oct, Insomnia disorder with non-sleep disorder mental comorbidity G47.00 [facility] [id number] [place] [address] 01004- 8242 Oct, Post-traumatic stress disorder, chronic F43.12 ; Insomnia disorder with non-sleep disorder mental comorbidity G47.00 and BMI 40.0-44.9, adult Z68.41 [facility] [id number] [place] [address] 46827- 6751 Oct, [facility] [address] [place] [address] 33421 -5378 Oct, Insect bite (nonvenomous), left lower leg, initial encounter S80.862A ; Bitten or stung by nonvenomous insect and other nonvenomous arthropods, initial encounter W57.XXXA and BMI 40.0-44.9, adult Z68.41 [facility] [address] 36293- 1924 06 Oct, 2017 Left leg pain M79.605 [address] [address] 19277- 6344 04 Oct, 2017 Post-traumatic stress disorder, unspecified F43.10 ; Major depressive disorder, recurrent, moderate F33.1 and Problems related to release from skilled nursing Z65.2 [facility] [address] 58185- 4902 2017 Arrhythmia as indication for cardiac pacemaker replacement I49.9 [facility] [address] 85964- 3277 Sep, [facility] [address] 22069- 9543 20 Sep, 2017 HTN (hypertension) I10 [facility] [address] 40224- 8296 17 Sep, 2017 [facility] [address] 77430- 6617 16 Sep, 2017 Body mass index (BMI) of 40.0-44.9 in adult Z68.41 ; Chronic pain G89.29 and Supraventricular tachycardia I47.1 [facility] [address] 14011- 9762 15 Sep, 2017 [facility] [address] 55855- 9154 Sep, Sarcoidosis D86.9 [facility] [address] 78689- 1597 Sep, Sarcoidosis D86.9 [facility] [address] 29557- 0040 Sep, [facility] [address] [address] 2894 Sep, [facility] [address] [address]- 4494 Sep, [facility] [address] [address]- 3917 Sep, [facility] [address] [place] [address] 69639- 3943 Sep, Left leg pain M79.605 [facility] [address] [address]- 9391 Sep, HTN (hypertension) I10 [facility] [address] [place] [address] 10280- 2019 Sep, [facility] [address] [address]- 7973 Sep, Post-traumatic stress disorder, unspecified F43.10 ; Major depressive disorder, recurrent, moderate F33.1 and Problems related to release from skilled nursing Z65.2 [facility] [address] [address]- 8618 Sep, [facility] [address] [place] [address]- 0343 Aug, [facility] [address] [address]- 7272 Aug, Sarcoidosis D86.9 [facility] [address] [address]- 9530 Aug, Sarcoidosis D86.9 [facility] [address] [address]- 3084 Aug, HTN (hypertension) I10 [facility] [address] [address]- 0023 Aug, Post-traumatic stress disorder, unspecified F43.10 ; Major depressive disorder, recurrent, moderate F33.1 and Problems related to release from skilled nursing Z65.2 [facility] [address] [address]- 2770 11 Aug, 2017 [facility] [id number] [place] [address] 40023 2546 09 Aug, 2017 Left leg pain M79.605 [facility] [id number] [place] [address] 21084- 2836 26 Jul, 2017 Post-traumatic stress disorder, chronic F43.12 ; Anxiety F41.9 ; Problems related to release from skilled nursing Z65.2 and BMI 40.0-44.9, adult Z68.41 [facility] [id number] [place] [address] 31726- 5307 20 Jul, 2017 HTN (hypertension) I10 ; Body mass index (BMI) of 40.0-44.9 in adult Z68.41 ; Acute swimmer''s ear of both sides H60.333 and Chronic pain G89.29 [facility] [id number] [place] [address] 26524- 9510 19 Jul, 2017 Glaucoma H40.9 [facility] [id number] [place] [address] 19420 254 14 Jul, 2017 [facility] [id number] [place] [address] 53808 2546 13 Jul, 2017 Sarcoidosis D86.9 [facility] [id number] [place] [address] 41252- 3703 12 Jul, 2017 Left leg pain M79.605 [facility] [address] [place] [address] 09270- 4596 12 Jul, 2017 Sarcoidosis D86.9 [facility] [id number] [place] [address] 30478 2548 Jul, Post-traumatic stress disorder, unspecified F43.10 ; Major depressive disorder, recurrent, moderate F33.1 and Problems related to release from skilled nursing Z65.2 [facility] [address] [place] [address] 9014 June, [facility] [address], [place] [address] June, Sore throat J02.9 and BMI 40.0-44.9, adult Z68.41 [facility] [address] [address]- 9588 June, [facility] [id number] [place] [address] 04880- 0368 June, [facility] [id number] [place] [address] 67975- 5948 June, [facility] [id number] [place] [address] 57754- 1742 June, Left leg pain M79.605 [facility] [id number] [place] [address] 99520- 6783 June, Sarcoidosis D86.9 [facility] [id number] [place] [address] 48100- 1023 June, [facility] [id number] [place] [address] 60568- 3850 June, [facility] [address] [address]- 9965 June, Left leg pain M79.605 [facility] [address], [place] [address]- 9943 May, [facility] [address], [place] [address]- 7845 May, [facility] [id number] [place] [address] 07477- 4938 May, [facility] [address], [place] [address] 1994 May, Left leg pain M79.605 [facility] [id number] [place] [address] 49554- 8604 May, Post-traumatic stress disorder, unspecified F43.10 ; Major depressive disorder, recurrent, moderate F33.1 and Problems related to release from skilled nursing Z65.2 [facility] [id number] [place] [address] 25857- 4513 May, Chronic pain G89.29 ; Anxiety F41.9 ; Chest pain, unspecified type R07.9 and BMI 40.0-44.9, adult Z68.41 [facility] [id number] [place] [address] 83082- 3894 30 Apr, 2017 [facility] [id number] [place] [address] 19457- 9884 Apr, Left leg pain M79.605 [facility] [id number] [place] [address] 88028- 3967 Apr, Post-traumatic stress disorder, unspecified F43.10 ; Problems related to release from skilled nursing Z65.2 ; Anxiety F41.9 and BMI 40.0-44.9 , adult Z68.41 [facility] [id number] [place] [address] 38695- 2762 Apr, [facility] [id number] [place] [address] 96420- 9521 Apr, Left leg pain M79.605 [facility] [id number] [place] [address] 61250- 5652 Apr, Post-traumatic stress disorder, unspecified F43.10 ; Major depressive disorder, recurrent, moderate F33.1 and Problems related to release from skilled nursing Z65.2 [facility] [id number] [place] [address] 18120- 1411 Apr, [facility] [id number] [place] [address] 00868- 7057 Apr, Chronic pain G89.29 ; 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 ; Morbid (severe) obesity due to excess calories E66.01 ; Anxiety F41.9 and BMI 40.0-44.9, adult Z68.41 [facility] [address] 59619 -6967 Apr, Sore throat J02.9 and BMI 40.0-44.9, adult Z68.41 [facility] [address] 32470- 1819 02 Apr, 2017 Left leg pain M79.605 [facility] [address] [id number] Mar, Dental examination Z01.20 [facility] [address] 70741- 2905 23 Mar, 2017 [facility] [address] 56675 -6022 Mar, Cough R05 ; Viral gastroenteritis A08.4 and BMI 40.0-44.9, adult Z68.41 [facility] [address] 78643- 3612 Mar, Left leg pain M79.605 [facility] [facility] [address] 67014- 0238 06 Mar, 2017 Post-traumatic stress disorder, unspecified F43.10 ; Major depressive disorder, recurrent, moderate F33.1 and Problems related to release from skilled nursing Z65.2 [facility] [address] 33367- 0265 Feb, Left leg pain M79.605 [address] [address] 07835- 1442 Feb, [facility] [address] 58649- 2297 Feb, BMI 40.0-44.9, adult Z68.41 ; Chronic pain syndrome G89.4 ; Migraine without aura and without status migrainosus, not intractable G43.009 ; Mitral valve prolapse I34.1 and 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 [facility] [id number] [place] [address] 38240- 4095 Feb, Post-traumatic stress disorder, chronic F43.12 ; Anxiety F41.9 ; Problems related to release from skilled nursing Z65.2 and BMI 40.0-44.9, adult Z68.41 [address] [facility] [address] 55335- 0652 Feb, Post-traumatic stress disorder, unspecified F43.10 ; Major depressive disorder, recurrent, moderate F33.1 and Problems related to release from skilled nursing Z65.2 [facility] [address] 42641- 4155 Feb, Left leg pain M79.605 [facility] [address] 78182- 6011 Jan, Post-traumatic stress disorder, unspecified F43.10 ; Major depressive disorder, recurrent, moderate F33.1 and Problems related to release from skilled nursing Z65.2 [facility] [address] 97670- 8383 Jan, [facility] [address] 21277- 5598 Jan, [facility] [id number] [place] [address] 01101- 8822 Jan, Anxiety F41.9 [facility] [id number] [place] [address] 59990- 9333 Jan, Left leg pain M79.605 [facility] [address] 56686- 0386 Dec, Left leg pain M79.605 [facility] [id number] [place] [address] 88484- 2519 Dec, [facility] [address] 27883- 9687 15 Dec, 2016 Post-traumatic stress disorder, unspecified F43.10 ; Major depressive disorder, recurrent, moderate F33.1 and Problems related to release from skilled nursing Z65.2 [facility] [address] [place] [address] 34855- 3885 31 Nov, 2016 Chronic pain G89.29 and Anxiety F41.9 [facility] [id number] [place] [address] 85358- 7986 Nov, Chronic pain G89.29 and Anxiety F41.9 [facility] [id number] [place] [address] 56750- 7393 16 Nov, 2016 Post-traumatic stress disorder, unspecified F43.10 ; Major depressive disorder, recurrent, moderate F33.1 and Problems related to release from skilled nursing Z65.2 [facility] [id number] [place] [address] 20235- 0257 09 Nov, 2016 Other abnormal findings in specimens from other organs, systems and tissues R89.8 ; Other male erectile dysfunction N52.8 ; Body mass index (BMI) of 40.0-44.9 in adult Z68.41 and Morbid (severe) obesity due to excess calories E66.01 [facility] [id number] [place] [address] 87421- 4290 02 Nov, 2016 Post-traumatic stress disorder, unspecified F43.10 ; Major depressive disorder, recurrent, moderate F33.1 and Problems related to release from skilled nursing Z65.2 [facility] [address] [place] [address] [id number] Oct, Dental examination Z01.20 [facility] [address] [place] [address] 99759- 2003 Oct, [facility] [id number] [place] [address] 23037- 4140 Oct, Encounter for immunization Z23 [facility] [id number] [place] [address] 22824- 3741 Oct, Chronic pain G89.29 ; Anxiety F41.9 ; Arrhythmia as indication for cardiac pacemaker replacement I49.9 and Glaucoma H40.9 [facility] [id number] [place] [address] 03663- 0701 Oct, Anxiety F41.9 ; Post-traumatic stress disorder, chronic F43.12 and Problems related to release from skilled nursing Z65.2 [facility] [address] 82573- 4987 Oct, Post-traumatic stress disorder, unspecified F43.10 ; Major depressive disorder, recurrent, moderate F33.1 and Problems related to release from skilled nursing Z65.2 [facility] [address] 16158- 0945 Sep, Chronic pain G89.29 and Anxiety F41.9 [facility] [address] 60125- 6194 Sep, Post-traumatic stress disorder, unspecified F43.10 ; Major depressive disorder, recurrent, moderate F33.1 and Problems related to release from skilled nursing Z65.2 [facility] [id number] [place] [address] 89794- 6379 Sep, Post-traumatic stress disorder, unspecified F43.10 ; Major depressive disorder, recurrent, moderate F33.1 and Problems related to release from skilled nursing Z65.2 [facility] [id number] [place] [address] 00624- 2535 Sep, Chronic pain G89.29 [facility] [id number] [place] [address] 55693- 6227 Aug, Dental caries, unspecified K02.9 [facility] [address] 93199- 3006 Aug, Sleep apnea, obstructive G47.33 ; Obesity E66.9 ; Chronic pain G89.29 ; HTN (hypertension) I10 ; Major depressive disorder, recurrent, moderate F33.1 ; Anxiety F41.9 ; Chronic tension headaches G44.229 ; Mitral valve prolapse I34.1 ; Arrhythmia as indication for cardiac pacemaker replacement I49.9 ; Dental caries, unspecified K02.9 ; Primary insomnia F51.01 and Hyperlipidemia E78.5 [facility] [address] [place] [address] 13752- 0648 Aug, Post-traumatic stress disorder, unspecified F43.10 ; Major depressive disorder, recurrent, moderate F33.1 and Problems related to release from skilled nursing Z65.2 [facility] [id number] [place] [address] 97223- 9418 Aug, Dental examination Z01.20 [facility] [id number] [place] [address] [id number] Aug, Dental examination Z01.20 [facility] [id number] [place] [address] 52670- 0226 Aug, Post-traumatic stress disorder, unspecified F43.10 ; Major depressive disorder, recurrent, moderate F33.1 and Problems related to release from skilled nursing Z65.2 [facility] [id number] [place] [address] 22793- 9281 Aug, Chronic pain G89.29 and Primary insomnia F51.01 [facility] [id number] [place] [address] 63440- 4685 Jul, [facility] [id number] [place] [address] 90359- 5221 Jul, [facility] [id number] [place] [address] 13830- 6263 Jul, Nausea R11.0 [facility] [id number] [place] [address] 03495- 3802 Jul, Arrhythmia as indication for cardiac pacemaker replacement I49.9 [facility] [id number] [place] [address] 71972- 6152 Jul, Post-traumatic stress disorder, unspecified F43.10 ; Major depressive disorder, recurrent, moderate F33.1 and Problems related to release from skilled nursing Z65.2 [facility] [address], [place] [address]- 2304 09 Jul, 2016 Anxiety F41.9 [facility] [id number] [place] [address] 44379- 0370 08 Jul, 2016 Chronic pain G89.29 [facility] [id number] [place] [address] 13322- 7766 02 Jul, 2016 Sleep apnea, obstructive G47.33 ; Hyperlipidemia E78.5 ; Chronic pain G89.29 ; 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 ; Major depressive disorder, recurrent, moderate F33.1 ; Anxiety F41.9 ; Mitral valve prolapse I34.1 ; Arrhythmia as indication for cardiac pacemaker replacement I49.9 ; Primary insomnia F51.01 ; Bilateral headaches R51 and Environmental allergies Z91.09 [facility] [id number] [place] [address] 22236- 9724 Jul, Post-traumatic stress disorder, unspecified F43.10 ; Major depressive disorder, recurrent, moderate F33.1 and Problems related to release from skilled nursing Z65.2 [facility] [id number] [place] [address] 30517- 6774 June, Post-traumatic stress disorder, chronic F43.12 ; Anxiety F41.9 ; Problems related to release from skilled nursing Z65.2 ; Sleep apnea, obstructive G47.33 and Primary insomnia F51.01 [facility] [address], [place] [address]- 5402 June, [facility] [address], [place] [address]- 3313 June, [facility] [id number] [place] [address] 38142- 4227 June, [facility] [id number] [place] [address] 43842- 9800 June, Chronic pain G89.29 [facility] [id number] [place] [address] 76130- 1635 June, Chronic pain G89.29 [facility] [id number] [place] [address] 69235- 4781 June, Lipoma of left lower extremity D17.24 ; Open wound T14.8 and Swelling of left lower extremity M79.89 [facility] [id number] [place] [address] 82527- 3364 June, Post-traumatic stress disorder, unspecified F43.10 ; Major depressive disorder, recurrent, moderate F33.1 and Problems related to release from skilled nursing Z65.2 [facility] [id number] [place] [address] 80643- 1064 May, Lipoma of left lower extremity D17.24 ; Major depressive disorder, recurrent, moderate F33.1 ; Sleep apnea, obstructive G47.33 ; Hyperlipidemia E78.5 ; Obesity E66.9 ; HTN (hypertension) I10 ; Glaucoma H40.9 ; CAD (coronary artery disease) I25.10 ; Chronic tension headaches G44.229 ; Chronic pain G89.29 ; Anxiety F41.9 ; Nausea R11.0 and Primary insomnia F51.01 [facility] [id number] [place] [address] 60729- 6159 May, [facility] [id number] [place] [address] 70261- 5821 May, Chronic pain G89.29 [facility] [id number] [place] [address] 02394- 6727 May, [facility] [id number] [place] [address] 73105- 0674 Apr, Post-traumatic stress disorder, unspecified F43.10 ; Major depressive disorder, recurrent, moderate F33.1 and Problems related to release from skilled nursing Z65.2 [facility] [address] [place] [address] 68157- 6008 Apr, Primary insomnia F51.01 ; Post-traumatic stress disorder, chronic F43.12 and Problems related to release from skilled nursing Z65.2 [facility] [address] [place] [address] 31866- 5380 17 Apr, 2016 Post-traumatic stress disorder, unspecified F43.10 ; Major depressive disorder, recurrent, moderate F33.1 and Problems related to release from skilled nursing Z65.2 [facility] [id number] [place] [address] 03881- 3833 16 Apr, 2016 [facility] [id number] [place] [address] 83701- 0514 16 Apr, 2016 Sleep apnea, obstructive G47.33 ; Chronic pain G89.29 ; HTN (hypertension) I10 ; Mitral valve prolapse I34.1 ; Shoulder pain, left M25.512 ; Arrhythmia as indication for cardiac pacemaker replacement I49.9 ; Glaucoma H40.9 ; Bilateral headaches R51 ; Environmental allergies Z91.09 ; Primary insomnia F51.01 and Nausea R11.0 [facility] [id number] [place] [address] 17610- 5655 15 Apr, 2016 [facility] [id number] [place] [address] 67894- 7780 15 Apr, 2016 [facility] [id number] [place] [address] 53998- 4097 07 Apr, 2016 Post-traumatic stress disorder, unspecified F43.10 ; Major depressive disorder, recurrent, moderate F33.1 and Problems related to release from skilled nursing Z65.2 [facility] [id number] [place] [address] 57930- 3495 07 Apr, 2016 HTN (hypertension) I10 [facility] [id number] [place] [address] 37943- 8087 07 Apr, 2016 HTN (hypertension) I10 [facility] [id number] [place] [address] 98945- 8232 14 Mar, 2016 Chronic pain G89.29 ; Primary insomnia F51.01 and Problems related to release from skilled nursing Z65.2 [facility] [id number] [place] [address] 22254- 0468 Mar, Post-traumatic stress disorder, unspecified F43.10 ; Major depressive disorder, recurrent, moderate F33.1 and Problems related to release from skilled nursing Z65.2 [facility] [id number] [place] [address] 00440- 2116 Feb, Post-traumatic stress disorder, unspecified F43.10 ; Major depressive disorder, recurrent, moderate F33.1 and Problems related to release from skilled nursing Z65.2 [facility] [id number] [place] [address] 66745- 4604 Feb, Chronic tension headaches G44.229 [facility] [address] 27451- 3723 Feb, Sleep apnea, obstructive G47.33 ; Obesity E66.9 ; Hyperlipidemia E78.5 ; Glaucoma H40.9 ; Chronic pain G89.29 ; HTN (hypertension ) I10 ; 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 ; 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 ; Chronic tension headaches G44.229 ; Cough R05 ; CAD (coronary artery disease) I25.10 ; Problems related to release from skilled nursing Z65.2 ; Arrhythmia as indication for cardiac pacemaker replacement I49.9 and Primary insomnia F51.01 [facility] [id number] [place] [address] 36602- 8407 Feb, Post-traumatic stress disorder, unspecified F43.10 and Chronic pain G89.29 [facility] [id number] [place] [address] 02971- 2929 Feb, [facility] [id number] [place] [address] [id number] Feb, Dental caries K02.9 [facility] [id number] [place] [address] 00322- 9237 Feb, [facility] [id number] [place] [address] 87237- 7067 Feb, Post-traumatic stress disorder, unspecified F43.10 ; Major depressive disorder, recurrent, moderate F33.1 and Problems related to release from skilled nursing Z65.2 [facility] [id number] [place] [address] 40709- 3478 Jan, Sleep apnea, obstructive G47.33 and Chronic pain G89.29 [facility] [id number] [place] [address] 97145- 7050 Jan, [facility] [address] 31872- 8917 Jan, Dental examination Z01.20 [facility] [id number] [place] [address] 49095- 0091 Jan, [facility] [id number] [place] [address] 57705- 3225 Jan, [facility] [id number] [place] [address] 37108- 1927 Dec, Post-traumatic stress disorder, unspecified F43.10 ; Major depressive disorder, recurrent, moderate F33.1 and Problems related to release from skilled nursing Z65.2 [facility] [id number] [place] [address] 98456- 8405 Dec, Encounter for immunization Z23 ; Problems related to release from skilled nursing Z65.2 ; Sleep apnea, obstructive G47.33 and Post-traumatic stress disorder, chronic F43.12 [facility] [id number] [place] [address] 06355- 3847 Dec, Sleep apnea, obstructive G47.33 ; Hyperlipidemia E78.5 ; Chronic pain G89.29 ; Glaucoma H40.9 ; HTN (hypertension) I10 ; Post-traumatic stress disorder, unspecified F43.10 ; Anxiety F41.9 ; Chronic tension headaches G44.229 ; Mitral valve prolapse I34.1 and CAD (coronary artery disease) I25.10 [facility] [id number] [place] [address] 68971- 4162 15 Dec, 2015 Post-traumatic stress disorder, unspecified F43.10 ; Major depressive disorder, recurrent, moderate F33.1 and Problems related to release from skilled nursing Z65.2 [facility] [address] [address] 7657 Nov, Chronic pain G89.29 [facility] [address] [address] 5420 Nov, Post-traumatic stress disorder, unspecified F43.10 ; Major depressive disorder, recurrent, moderate F33.1 and Problems related to release from skilled nursing Z65.2 [facility] [address] [address]- 4408 Oct, [facility] [id number] [place] [address] 55781- 6088 Oct, [facility] [address] [place] [address] 72739- 9624 Oct, Post-traumatic stress disorder, unspecified F43.10 ; Major depressive disorder, recurrent, moderate F33.1 and Problems related to release from skilled nursing Z65.2 [facility] [address], [place] [address]- 8452 08 Oct, 2015 [facility] [id number] [place] [address] 24812- 2916 07 Oct, 2015 Environmental allergies Z91.09 ; Cough R05 and 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 [facility] [address] [address] 1897 Sep, [facility] [address] [address]- 4529 Sep, Post-traumatic stress disorder, unspecified F43.10 ; Major depressive disorder, recurrent, moderate F33.1 and Problems related to release from skilled nursing Z65.2 [facility] [address], [place] [address]- 9288 Sep, Chronic pain G89.29 [facility] [address], [place] [address]- 0766 Sep, Pain in left shoulder M25.512 ; Pain in right shoulder M25.511 and Other chronic pain G89.29 [facility] [id number] [place] [address] 30926- 5170 Sep, [facility] [id number] [place] [address] 57634- 0130 Sep, [facility] [id number] [place] [address] 28824- 1701 Sep, [facility] [id number] [place] [address] [id number] Aug, Dental examination Z01.20 [facility] [id number] [place] [address] 42669- 5592 Aug, Post-traumatic stress disorder, unspecified F43.10 ; Open- angle glaucoma of both 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 and Problems related to release from skilled nursing Z65.2 [facility] [id number] [place] [address] 90580- 9226 Aug, [facility] [id number] [place] [address] 02091- 0602 Aug, Sleep apnea, obstructive G47.33 ; Obesity E66.9 ; Hyperlipidemia E78.5 ; Bilateral headaches R51 ; HTN (hypertension) I10 ; Post- traumatic stress disorder, unspecified F43.10 ; Anxiety F41.9 ; Neuropathy G62.9 ; Glaucoma H40.9 and Chronic pain G89.29 [facility] [id number] [place] [address] [id number] Aug, Encounter for dental examination Z01.20 [facility] [id number] [place] [address] 76970- 7849 Aug, Post-traumatic stress disorder, unspecified F43.10 ; Major depressive disorder, recurrent, moderate F33.1 and Problems related to release from skilled nursing Z65.2 [facility] [id number] [place] [address] 31722- 3937 Aug, [facility] [address] [facility] [id number] [address]- 1489 Jul, [facility] [id number] [place] [address] 10071364- 8834 Jul, Post-traumatic stress disorder, unspecified F43.10 and Major depressive disorder, recurrent, moderate F33.1 [facility] [address] [place] [address] 62520- 5775 Jul, [facility] [id number] [address]- 2533 Jul, [facility] [id number] [place] [address] 92995- 2872 Jul, Chronic pain G89.29 [facility] [address], [place] [address]- 2820 June, Post-traumatic stress disorder, unspecified F43.10 and Major depressive disorder, recurrent, moderate F33.1 [facility] [id number] [address]- 7032 June, [facility] [id number] [place] [address] 46313- 0272 June, Chronic pain G89.29 [facility] [id number] [address]- 2371 June, Post-traumatic stress disorder, unspecified F43.10 and Major depressive disorder, recurrent, moderate F33.1 [facility] [id number] [address]- 1833 May, Post-traumatic stress disorder, unspecified F43.10 and Major depressive disorder, recurrent, moderate F33.1 [facility] [id number] [address] 8841 May, [facility] [id number] [address]- 1810 May, [facility] [id number] [address]- 0301 05 May, 2015 [facility] [id number] [place] [address] 42172- 6849 Apr, [facility] [id number] [place] [address] 99563- 8545 Apr, Post-traumatic stress disorder, unspecified F43.10 and Sleep apnea, obstructive G47.33 [facility] [id number] [place] [address] 35656- 1586 31 Apr, 2015 [facility] [id number] [place] [address] 84894- 7430 Apr, Shoulder pain, left M25.512 [facility] [id number] [place] [address] 27547- 8930 Apr, Post-traumatic stress disorder, unspecified F43.10 and Major depressive disorder, recurrent, moderate F33.1 [facility] [id number] [place] [address] 29083- 8764 17 Apr, 2015 [facility] [id number] [place] [address] 22933- 3242 11 Apr, 2015 [facility] [id number] [place] [address] 60258- 2306 08 Apr, 2015 [facility] [id number] [place] [address] 69466- 5093 07 Apr, 2015 Left shoulder pain M25.512 [facility] [id number] [address]- 5933 Mar, [facility] [id number] [place] [address] 59677- 9134 Mar, [facility] [id number] [place] [address] 46004- 7999 18 Mar, 2015 [facility] [id number] [place] [address] 49294- 4145 Mar, Sleep apnea, obstructive G47.33 ; Obesity E66.9 ; Chronic pain G89.29 ; Hyperlipidemia E78.5 ; HTN (hypertension) I10 ; 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 ; Major depressive disorder, recurrent, moderate F33.1 and Anxiety F41.9 [facility] [id number] [place] [address] 51047- 8861 Mar, [facility] [address] 34620- 9167 Mar, Post-traumatic stress disorder, unspecified F43.10 and Major depressive disorder, recurrent, moderate F33.1 [facility] [address] 01957- 5399 Mar, [facility] [id number] [place] [address] 14205- 4974 04 Mar, 2015 HTN (hypertension) I10 ; 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 ; Obesity E66.9 ; Hyperlipidemia E78.5 ; Glaucoma H40.9 ; Chronic pain G89.29 and CAD (coronary artery disease) I25.10 [facility] [id number] [place] [address] 40254- 4153 Feb, [facility] [id number] [place] [address] 00315- 9105 Feb, Post-traumatic stress disorder, unspecified F43.10 ; Obesity E66.9 ; Sleep apnea, obstructive G47.33 and 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 [facility] [id number] [place] [address] 37650- 7331 Feb, Post-traumatic stress disorder, unspecified F43.10 and Major depressive disorder, recurrent, moderate F33.1 [facility] [id number] [place] [address] 82712- 7597 Feb, [facility] [id number] [place] [address] 96800- 0909 Feb, [facility] [id number] [place] [address] 65509- 0251 Feb, HTN (hypertension) I10 ; Post-traumatic stress disorder, unspecified F43.10 ; 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 ; Obesity E66.9 ; Hyperlipidemia E78.5 ; Chronic pain G89.29 ; Glaucoma H40.9 ; Mitral valve prolapse I34.1 and Bilateral headaches R51 [address] 24014- 6788 Feb, [address] 51147- 7852 Feb, Post-traumatic stress disorder, unspecified F43.10 and Major depressive disorder, recurrent, moderate F33.1 [facility] [id number] [place] [address] 75977- 6113 Feb, [address] 64738- 5317 Feb, [facility] [id number] [place] [address] 59438- 0108 Jan, [address] 61679- 3778 Jan, [facility] [id number] [place] [address] 85271- 3030 Jan, Obesity E66.9 ; HTN (hypertension) I10 ; 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 ; Major depressive disorder, recurrent, moderate F33.1 ; Glaucoma H40.9 ; Hyperlipidemia E78.5 ; Sleep apnea, obstructive G47.33 ; Chronic pain G89.29 ; Anxiety F41.9 ; Chronic tension headaches G44.229 and Cough R05 [place] [id number] [place] [address] 86368- 2324 Jan, [facility] [id number] [place] [address] 60777- 0449 Jan, [address] [place] [address]- 3703 Jan, Post-traumatic stress disorder, unspecified F43.10 ; Obesity E66.9 ; Sleep apnea, obstructive G47.33 and 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 [facility] [address] 59296- 2478 Jan, [place] [address]2556- 6073 Jan, Post-traumatic stress disorder, unspecified F43.10 and Major depressive disorder, recurrent, moderate F33.[address] 745531- 8902 Dec, [address] 75855- 1041 Dec, Sleep apnea, obstructive G47.33 ; Obesity E66.9 ; Hyperlipidemia E78.5 ; Glaucoma H40.9 ; Chronic pain G89.29 ; HTN (hypertension ) I10 ; 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 ; Anxiety F41.9 and CAD (coronary artery disease) I25.[address] 54881- 7384 Nov, [place] [id number] [place] [address] 87353- 7314 Nov, [address] 31218- 3297 Nov, [address] 67895- 6978 Nov, [address] 33006- 3345 Nov, [address] 45262- 2211 Nov, Encounter for immunization Z23 ; Sleep apnea, obstructive G47.33 ; Obesity E66.9 ; Hyperlipidemia E78.5 ; Glaucoma H40.9 ; Chronic pain G89.29 ; Anxiety F41.9 ; Chronic tension headaches G44.229 and HTN (hypertension ) I10 [facility] [address] 82671- 8580 Nov, [facility] [address] 84657- 5918 Nov, [facility] [address] 02920- 1130 Nov, Dizziness R42 [facility] [address] 44961- 0401 Nov, [facility] [address] 97027- 4102 Oct, [facility] [address] 33810- 6286 Oct, [facility] [address] 55314- 1294 Oct, [facility] [address] 77501- 2863 Oct, [facility] [address] 50456- 9470 Oct, Dizziness 780.4 ; Essential hypertension 401.9 ; Obesity 278.00 ; Hyperlipidemia 272.4 ; Chronic pain 338.29 ; Glaucoma 365.9 and Anxiety 300.00 [facility] [address] 98916- 6023 Oct, Essential hypertension 401.9 ; Hyperlipidemia 272.4 ; Glaucoma 365.9 ; Obesity 278.00 ; Chronic pain 338.29 and Allergy to insects V15.06 [facility] [id number] [place] [address] 92101- 2984 Sep, [facility] [address] 36104- 7309 Sep, [facility] [address] 56152- 7846 Sep, [facility] [address] [facility] [id number] [place] [address]- 4816 Sep, [facility] [address] [facility] [id number] [address]- 2916 Aug, Essential hypertension 401.9 ; Obesity 278.00 ; Hyperlipidemia 272.4 ; Glaucoma 365.9 ; Lipoma 214.9 ; Mitral valve prolapse 424.0 ; Angina at rest 413.9 ; Lymphedema 457.1 and Chronic pain 338.29 IMMUNIZATIONS No Known Immunizations SOCIAL HISTORY Never Assessed REASON FOR VISIT Controlled medication Refill- Due 12/08 PLAN OF CARE VITAL SIGNS MEDICATIONS Medication Instructions Dosage Frequency Start Date End Date Duration Status Hydrocodone-Acetaminophen 7.5-325 MG Orally 4 times a day 1 tablet 6h Nov, Active RESULTS No Results PROCEDURES No Known [...]
--- OUTSIDE RECORDS SUMMARY | 2018-02-04 14:05 | XMS REPORT ---
Author Author ALENA ÁLVAREZ [facility] Address [address] [place] [address] Care Team Providers Care Negative Spotter Name Role Phone ALENA ÁLVAREZ Unavailable PROBLEMS Type Condition ICD9-CM Code YHV30-GF Code Onset Dates Condition Status SNOMED Code Problem Hyperlipidemia E78.5 Active 05033862 Problem Sleep apnea, obstructive G47.33 Active 77032904 Problem Primary insomnia F51.01 Active 5098968 Problem Chronic pain G89.29 Active 30263584 Problem Morbid (severe) obesity due to excess calories E66.01 Active 812567215 Problem Myocarditis, unspecified chronicity, 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 Active 98730353 Problem Other male erectile dysfunction N52.8 Active 669041597 Problem 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 Active 212542993 Problem Body mass index (BMI) of 40.0-44.9 in adult Z68.41 Active 054634113 Problem Supraventricular tachycardia I47.1 Active 9256298 Problem Insomnia disorder with non-sleep disorder mental comorbidity G47.00 Active 16859962 Problem Chronic tension headaches G44.229 Active 443163377 Problem HTN (hypertension) I10 Active 07735958 Problem 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 Active 389445398 Problem Chronic pain syndrome G89.4 Active 976322588 Problem Migraine without aura and without status migrainosus, not intractable G43.009 Active 102050728 Problem Sarcoidosis D86.9 Active 45083153 Problem Problems related to release from half-way Z65.2 Active 593646242228874 Problem 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 Active 04082734 Problem Mitral valve prolapse I34.1 Active 216897384 Problem Anxiety F41.9 Active 22060431 Problem Major depressive disorder, recurrent, moderate F33.1 Active 41454386 Problem Environmental allergies Z91.09 Active 891516746 Problem Arrhythmia as indication for cardiac pacemaker replacement I49.9 Active 28618985 Problem CAD (coronary artery disease) I25.10 Active 24999769 Problem Post-traumatic stress disorder, chronic F43.12 Active 295425429 ALLERGIES No Information ENCOUNTERS Encounter Location Date Diagnosis [place] [address] [address] Dec, [facility] [address] [id number] [id number] Nov, [place] [address] 28714- [address] Nov, Encounter for long-term (current) use of other medications Z79.899 [place] [address] 63035- 4769 02 Nov, 2017 [place] [address] [place] [id number] [place] [address] 34543- 1786 Nov, Left leg pain M79.605 [facility] [address] [id number] 28 Oct, 2017 Dental examination Z01.20 [place] [address] [place] [id number] [place] [address] 74538- 4933 Oct, Insomnia disorder with non-sleep disorder mental comorbidity G47.00 [place] [address] [place] [id number] [place] [address] 29679- 1623 Oct, Post-traumatic stress disorder, chronic F43.12 ; Insomnia disorder with non-sleep disorder mental comorbidity G47.00 and BMI 40.0-44.9, adult Z68.41 [facility] [address] [place] [address] 63041- 7808 Oct, [facility] [address] [place] [id number] [place] [address] 85362 -2211 18 Oct, 2017 Insect bite (nonvenomous), left lower leg, initial encounter S80.862A ; Bitten or stung by nonvenomous insect and other nonvenomous arthropods, initial encounter W57.XXXA and BMI 40.0-44.9, adult Z68.41 [place] [address] [place] [id number] [place] [address] 47213- 2286 06 Oct, 2017 Left leg pain M79.605 [facility] [address] [place] [id number] [place] [address] 38428- 6844 04 Oct, 2017 Post-traumatic stress disorder, unspecified F43.10 ; Major depressive disorder, recurrent, moderate F33.1 and Problems related to release from half-way Z65.2 [facility] [address] 90497- 7452 2017 Arrhythmia as indication for cardiac pacemaker replacement I49.9 [place] [address] 79056- 6902 Sep, [place] [address] [place] [id number] [place] [address] 10317- 2770 20 Sep, 2017 HTN (hypertension) I10 [place] [address] 41915- 9117 17 Sep, 2017 [facility] [address] [place] [id number] [place] [address] 23300- 5186 16 Sep, 2017 Body mass index (BMI) of 40.0-44.9 in adult Z68.41 ; Chronic pain G89.29 and Supraventricular tachycardia I47.1 [place] [address] [place] [id number] [place] [address] 71640- 2408 15 Sep, 2017 [facility] [address] [place] [id number] [place] [address] 10765- 8488 Sep, Sarcoidosis D86.9 [facility] [address] [place] [id number] [place] [address] 88964- 2000 Sep, Sarcoidosis D86.9 [facility] [address] 62875- 8330 Sep, [facility] [address] [place] [id number] [place] [address] 78663- 0928 Sep, [facility] [address] [place] [address] Sep, [facility] [address] [address] 70[address] Sep, [facility] [address] [place] [address] 68175- 0806 Sep, Left leg pain M79.605 [facility] [address] [place] [address] 78343- 5104 Sep, HTN (hypertension) I10 [facility] [address] [place] [id number] [place] [address] 30903- 4821 Sep, [facility] [address] [place] [id number] [place] [address] 38769- 4694 Sep, Post-traumatic stress disorder, unspecified F43.10 ; Major depressive disorder, recurrent, moderate F33.1 and Problems related to release from half-way Z65.2 [facility] [address] [place] [address] 14814- 8716 Sep, [facility] [address] [place] [address] 25429- 8957 Aug, [facility] [address] [place] [address] 83513- 4871 Aug, Sarcoidosis D86.9 [facility] [address] [place] [address] 42696- 6403 Aug, Sarcoidosis D86.9 [facility] [address] [address] 97[address] Aug, HTN (hypertension) I10 [facility] [address] [place] [address] 00429- 5004 Aug, Post-traumatic stress disorder, unspecified F43.10 ; Major depressive disorder, recurrent, moderate F33.1 and Problems related to release from half-way Z65.2 [facility] [address] [place] [address] 25596- 7179 Aug, [facility] [address] [place] [id number] [place] [address] 24526- 7212 09 Aug, 2017 Left leg pain M79.605 [place] [address] 07428- 2095 Jul, Post-traumatic stress disorder, chronic F43.12 ; Anxiety F41.9 ; Problems related to release from half-way Z65.2 and BMI 40.0-44.9, adult Z68.41 [facility] [address] 49439- 8934 20 Jul, 2017 HTN (hypertension) I10 ; Body mass index (BMI) of 40.0-44.9 in adult Z68.41 ; Acute swimmer''s ear of both sides H60.333 and Chronic pain G89.29 [place] [address] 18584- 5122 19 Jul, 2017 Glaucoma H40.9 [place] [address] 58398- 6354 14 Jul, 2017 [place] [address] 85067- 4385 13 Jul, 2017 Sarcoidosis D86.9 [facility] [address] 39982- 8247 12 Jul, 2017 Left leg pain M79.605 [place] [address] 04905- 4309 12 Jul, 2017 Sarcoidosis D86.9 [place] [address] [place] [id number] [place] [address] 55020- 4983 Jul, Post-traumatic stress disorder, unspecified F43.10 ; Major depressive disorder, recurrent, moderate F33.1 and Problems related to release from half-way Z65.2 [facility] [address] [place] [id number] [place] [address] 08408- 6501 June, [facility] [address] 89743 -6850 June, Sore throat J02.9 and BMI 40.0-44.9, adult Z68.41 [facility] [address] [place] [id number] [place] [address] 50043- 2126 June, [facility] [address] [place] [id number] [place] [address] 44524- 9906 June, [facility] [address] [place] [id number] [place] [address] 54546- 5822 June, [facility] [address] [place] [id number] [place] [address] 14440- 8297 June, Left leg pain M79.605 [facility] [address] [place] [id number] [place] [address] 04278- 2882 June, Sarcoidosis D86.9 [facility] [address] [place] [id number] [place] [address] 55444- 6760 June, [facility] [address] [place] [id number] [place] [address] 73504- 6902 June, [facility] [address] [place] [id number] [place] [address] 77560- 3461 June, Left leg pain M79.605 [facility] [address] [place] [address] [address]- 1291 May, [facility] [address] [place] [id number] [place] [address] 39642- 3940 May, [facility] [address] [place] [address] 26080- 0074 May, [facility] [address] [place] [id number] [place] [address] 48052- 6838 May, Left leg pain M79.605 [facility] [address] [address]- 7626 May, Post-traumatic stress disorder, unspecified F43.10 ; Major depressive disorder, recurrent, moderate F33.1 and Problems related to release from half-way Z65.2 [facility] [address] [place] [id number] [place] [address] 12155- 0652 May, Chronic pain G89.29 ; Anxiety F41.9 ; Chest pain, unspecified type R07.9 and BMI 40.0-44.9, adult Z68.41 [place] [address] 81445- 5980 30 Apr, 2017 [place] [address] 78581- 6221 29 Apr, 2017 Left leg pain M79.605 [place] [address] 00688- 2409 27 Apr, 2017 Post-traumatic stress disorder, unspecified F43.10 ; Problems related to release from half-way Z65.2 ; Anxiety F41.9 and BMI 40.0-44.9 , adult Z68.41 [place] [address] [place] [id number] [place] [address] 95481- 8760 Apr, [facility] [address] 96059- 7155 Apr, Left leg pain M79.605 [place] [address] [place] [id number] [place] [address] 54986- 7129 Apr, Post-traumatic stress disorder, unspecified F43.10 ; Major depressive disorder, recurrent, moderate F33.1 and Problems related to release from half-way Z65.2 [place] [address] [place] [id number] [place] [address] 17131- 5421 Apr, [place] [address] 27767- 9527 Apr, Chronic pain G89.29 ; 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 ; Morbid (severe) obesity due to excess calories E66.01 ; Anxiety F41.9 and BMI 40.0-44.9, adult Z68.41 [facility] [address] [place] [id number] [place] [address] 81253 -5061 Apr, Sore throat J02.9 and BMI 40.0-44.9, adult Z68.41 [place] [address] 51900- 2631 Apr, Left leg pain M79.605 [facility] [address] [id number] Mar, Dental examination Z01.20 [facility] [address] 36536- 1502 Mar, [facility] [address] 52550 -3072 Mar, Cough R05 ; Viral gastroenteritis A08.4 and BMI 40.0-44.9, adult Z68.41 [place] [address] 77066- 6315 Mar, Left leg pain M79.605 [place] [address] 14993- 6928 06 Mar, 2017 Post-traumatic stress disorder, unspecified F43.10 ; Major depressive disorder, recurrent, moderate F33.1 and Problems related to release from half-way Z65.2 [place] [address] [place] [id number] [place] [address] 92957- 1945 Feb, Left leg pain M79.605 [facility] [address] [place] [id number] [place] [address] 88278- 7518 Feb, [place] [address] 87688- 7919 Feb, BMI 40.0-44.9, adult Z68.41 ; Chronic pain syndrome G89.4 ; Migraine without aura and without status migrainosus, not intractable G43.009 ; Mitral valve prolapse I34.1 and 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 [place] [address] 56401- 0406 Feb, Post-traumatic stress disorder, chronic F43.12 ; Anxiety F41.9 ; Problems related to release from half-way Z65.2 and BMI 40.0-44.9, adult Z68.41 [facility] [address] [place] [address] 01039- 8491 Feb, Post-traumatic stress disorder, unspecified F43.10 ; Major depressive disorder, recurrent, moderate F33.1 and Problems related to release from half-way Z65.2 [facility] [address] [place] [address] 18538- 1226 Feb, Left leg pain M79.605 [place] [address] [place] [id number] [place] [address] 11090- 2052 Jan, Post-traumatic stress disorder, unspecified F43.10 ; Major depressive disorder, recurrent, moderate F33.1 and Problems related to release from half-way Z65.2 [place] [address] [place] [id number] [place] [address] 06669- 0744 Jan, [place] [address] [place] [id number] [place] [address] 11259- 2385 Jan, [place] [address] [place] [id number] [place] [address] 57329- 4185 Jan, Anxiety F41.9 [facility] [address] [place] [id number] [place] [address] 57914- 5548 Jan, Left leg pain M79.605 [facility] [address] [place] [id number] [place] [address] 02022- 3729 Dec, Left leg pain M79.605 [place] [address] [place] [id number] [place] [address] 53297- 3839 Dec, [place] [address] [place] [id number] [place] [address] 55096- 6660 Dec, Post-traumatic stress disorder, unspecified F43.10 ; Major depressive disorder, recurrent, moderate F33.1 and Problems related to release from half-way Z65.2 [facility] [address] [place] [id number] [place] [address] 34685- 5089 31 Nov, 2016 Chronic pain G89.29 and Anxiety F41.9 [place] [address] [place] 578514- 3353 24 Nov, 2016 Chronic pain G89.29 and Anxiety F41.9 [place] [address] 00518- 0971 16 Nov, 2016 Post-traumatic stress disorder, unspecified F43.10 ; Major depressive disorder, recurrent, moderate F33.1 and Problems related to release from half-way Z65.2 [place] [address] 96914- 0818 09 Nov, 2016 Other abnormal findings in specimens from other organs, systems and tissues R89.8 ; Other male erectile dysfunction N52.8 ; Body mass index (BMI) of 40.0-44.9 in adult Z68.41 and Morbid (severe) obesity due to excess calories E66.01 [place] [address] [place] [id number] [place] [address] 44309- 8534 02 Nov, 2016 Post-traumatic stress disorder, unspecified F43.10 ; Major depressive disorder, recurrent, moderate F33.1 and Problems related to release from half-way Z65.2 [facility] [address] [id number] 29 Oct, 2016 Dental examination Z01.20 [place] [address] [place] [id number] [place] [address] 03242- 0550 28 Oct, 2016 [place] [address] [place] [id number] [place] [address] 97170- 7806 Oct, Encounter for immunization Z23 [address] 49276- 3748 26 Oct, 2016 Chronic pain G89.29 ; Anxiety F41.9 ; Arrhythmia as indication for cardiac pacemaker replacement I49.9 and Glaucoma H40.[address] [place] [address]- 8562 Oct, Anxiety F41.9 ; Post-traumatic stress disorder, chronic F43.12 and Problems related to release from half-way Z65.2 [place] [address] [place] [address] [place] [address]68 07 Oct, 2016 Post-traumatic stress disorder, unspecified F43.10 ; Major depressive disorder, recurrent, moderate F33.1 and Problems related to release from half-way Z65.2 [place] [address] [place] [id number] [place] [address] 99117- 9848 Sep, Chronic pain G89.29 and Anxiety F41.9 [place] [address] 84945- 7522 Sep, Post-traumatic stress disorder, unspecified F43.10 ; Major depressive disorder, recurrent, moderate F33.1 and Problems related to release from half-way Z65.2 [place] [address] [place] [id number] [place] [address] 33365- 7364 Sep, Post-traumatic stress disorder, unspecified F43.10 ; Major depressive disorder, recurrent, moderate F33.1 and Problems related to release from half-way Z65.2 [place] [address] [place] [id number] [place] [address] 10219- 1552 Sep, Chronic pain G89.29 [place] [address] [place] [id number] [place] [address] 18434- 0011 Aug, Dental caries, unspecified K02.9 [place] [address] [place] [id number] [place] [address] 92124- 9738 Aug, Sleep apnea, obstructive G47.33 ; Obesity E66.9 ; Chronic pain G89.29 ; HTN (hypertension) I10 ; Major depressive disorder, recurrent, moderate F33.1 ; Anxiety F41.9 ; Chronic tension headaches G44.229 ; Mitral valve prolapse I34.1 ; Arrhythmia as indication for cardiac pacemaker replacement I49.9 ; Dental caries, unspecified K02.9 ; Primary insomnia F51.01 and Hyperlipidemia E78.5 [place] [address] [address]- 6355 Aug, Post-traumatic stress disorder, unspecified F43.10 ; Major depressive disorder, recurrent, moderate F33.1 and Problems related to release from half-way Z65.2 [facility] [address] [address]- 6585 Aug, Dental examination Z01.20 [facility] [address] [place] [address] [id number] Aug, Dental examination Z01.20 [facility] [address] [place] [id number] [place] [address] 08348- 9891 06 Aug, 2016 Post-traumatic stress disorder, unspecified F43.10 ; Major depressive disorder, recurrent, moderate F33.1 and Problems related to release from half-way Z65.2 [facility] [address] [place] [id number] [place] [address] 86981- 8617 Aug, Chronic pain G89.29 and Primary insomnia F51.01 [facility] [address] [place] [id number] [place] [address] 37546- 3564 Jul, [facility] [address] [place] [id number] [place] [address] 32489- 8826 Jul, [facility] [address] [place] [id number] [place] [address] 72781- 2835 Jul, Nausea R11.0 [facility] [address] [place] [id number] [place] [address] 85519- 6261 Jul, Arrhythmia as indication for cardiac pacemaker replacement I49.9 [facility] [address] [place] [id number] [place] [address] 46852- 0969 Jul, Post-traumatic stress disorder, unspecified F43.10 ; Major depressive disorder, recurrent, moderate F33.1 and Problems related to release from half-way Z65.2 [facility] [address] [place] [id number] [place] [address] 32106- 4815 Jul, Anxiety F41.9 [place] [address] [place] [id number] [place] [address] 14793- 6861 08 Jul, 2016 Chronic pain G89.29 [place] [address] [place] [id number] [place] [address] 20194- 1842 Jul, Sleep apnea, obstructive G47.33 ; Hyperlipidemia E78.5 ; Chronic pain G89.29 ; 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 ; Major depressive disorder, recurrent, moderate F33.1 ; Anxiety F41.9 ; Mitral valve prolapse I34.1 ; Arrhythmia as indication for cardiac pacemaker replacement I49.9 ; Primary insomnia F51.01 ; Bilateral headaches R51 and Environmental allergies Z91.[address] 34341- 7040 Jul, Post-traumatic stress disorder, unspecified F43.10 ; Major depressive disorder, recurrent, moderate F33.1 and Problems related to release from half-way Z65.[address] 13701- 2170 June, Post-traumatic stress disorder, chronic F43.12 ; Anxiety F41.9 ; Problems related to release from half-way Z65.2 ; Sleep apnea, obstructive G47.33 and Primary insomnia F51.01 [place] [address] [place] [id number] [place] [address] 02864- 5116 June, [place] [id number] [place] [address] 80621- 3414 June, [place] [address] [place] [id number] [place] [address] 57068- 8268 June, [place] [address] [place] [id number] [place] [address] 62062- 6936 June, Chronic pain G89.29 [place] [address] [place] [id number] [place] [address] 62573- 0492 June, Chronic pain G89.29 [place] [address] [place] [id number] [place] [address] 62935- 5552 June, Lipoma of left lower extremity D17.24 ; Open wound T14.8 and Swelling of left lower extremity M79.89 [place] [address] [place] [id number] [place] [address] 54435- 4853 June, Post-traumatic stress disorder, unspecified F43.10 ; Major depressive disorder, recurrent, moderate F33.1 and Problems related to release from half-way Z65.2 [place] [address] 48054- 7816 May, Lipoma of left lower extremity D17.24 ; Major depressive disorder, recurrent, moderate F33.1 ; Sleep apnea, obstructive G47.33 ; Hyperlipidemia E78.5 ; Obesity E66.9 ; HTN (hypertension) I10 ; Glaucoma H40.9 ; CAD (coronary artery disease) I25.10 ; Chronic tension headaches G44.229 ; Chronic pain G89.29 ; Anxiety F41.9 ; Nausea R11.0 and Primary insomnia F51.01 [place] [address] 15713- 9913 May, [place] [address] 97603- 8279 May, Chronic pain G89.29 [place] [id number] [place] [address] 79127- 7560 May, [place] [address] [address] [place] [id number] [place] [id number] Apr, Post-traumatic stress disorder, unspecified F43.10 ; Major depressive disorder, recurrent, moderate F33.1 and Problems related to release from half-way Z65.2 [place] [address] [address] [place] [id number] [place] [id number] Apr, Primary insomnia F51.01 ; Post-traumatic stress disorder, chronic F43.12 and Problems related to release from half-way Z65.2 [place] [address] [place] [id number] [place] [address] Apr, Post-traumatic stress disorder, unspecified F43.10 ; Major depressive disorder, recurrent, moderate F33.1 and Problems related to release from half-way Z65.2 [place] [address] [place] [id number] [place] [id number] 16 Apr, 2016 [place] [address] [place] [id number] [place] [address] [id number]- [address] 16 Apr, 2016 Sleep apnea, obstructive G47.33 ; Chronic pain G89.29 ; HTN (hypertension) I10 ; Mitral valve prolapse I34.1 ; Shoulder pain, left M25.512 ; Arrhythmia as indication for cardiac pacemaker replacement I49.9 ; Glaucoma H40.9 ; Bilateral headaches R51 ; Environmental allergies Z91.09 ; Primary insomnia F51.01 and Nausea R11.0 [place] [id number] [place] [address] 90922- 5437 Apr, [place] [id number] [place] [address] 27114- 3377 Apr, [place] [id number] [place] [address] 10690- 9923 Apr, Post-traumatic stress disorder, unspecified F43.10 ; Major depressive disorder, recurrent, moderate F33.1 and Problems related to release from half-way Z65.2 [place] [facility] [id number] [place] [address] 44279- 5391 Apr, HTN (hypertension) I10 [place] [id number] [place] [address] 47121- 4708 Apr, HTN (hypertension) I10 [place] [id number] [place] [address] 59187- 3564 14 Mar, 2016 Chronic pain G89.29 ; Primary insomnia F51.01 and Problems related to release from half-way Z65.2 [place] [id number] [place] [address] 13014- 8264 07 Mar, 2016 Post-traumatic stress disorder, unspecified F43.10 ; Major depressive disorder, recurrent, moderate F33.1 and Problems related to release from half-way Z65.2 [place] [id number] [place] [address] 40550- 1424 Feb, Post-traumatic stress disorder, unspecified F43.10 ; Major depressive disorder, recurrent, moderate F33.1 and Problems related to release from half-way Z65.2 [place] [id number] [place] [address] 14082- 7064 Feb, Chronic tension headaches G44.229 [facility] [facility] [id number] [place] [address] 14170- 1383 Feb, Sleep apnea, obstructive G47.33 ; Obesity E66.9 ; Hyperlipidemia E78.5 ; Glaucoma H40.9 ; Chronic pain G89.29 ; HTN (hypertension ) I10 ; 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 ; 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 ; Chronic tension headaches G44.229 ; Cough R05 ; CAD (coronary artery disease) I25.10 ; Problems related to release from half-way Z65.2 ; Arrhythmia as indication for cardiac pacemaker replacement I49.9 and Primary insomnia F51.01 [place] [id number] [place] [address] 05382- 7719 Feb, Post-traumatic stress disorder, unspecified F43.10 and Chronic pain G89.29 [address] [place] [address] 77308- 3604 Feb, [facility] [id number] [place] [address] [id number] Feb, Dental caries K02.9 [place] [id number] [place] [address] 21716- 4199 Feb, [place] [id number] [place] [address] 49418- 4154 Feb, Post-traumatic stress disorder, unspecified F43.10 ; Major depressive disorder, recurrent, moderate F33.1 and Problems related to release from half-way Z65.2 [place] [id number] [place] [address] 26220- 1756 Jan, Sleep apnea, obstructive G47.33 and Chronic pain G89.29 [place] [id number] [place] [address] 41571- 7328 Jan, [place] [id number] [place] [address] 71476- 2944 14 Jan, 2016 Dental examination Z01.20 [place] [id number] [place] [address] 63094- 7941 Jan, [place] [id number] [place] [address] 87717- 9821 Jan, [place] [id number] [place] [address] 99875- 3269 Dec, Post-traumatic stress disorder, unspecified F43.10 ; Major depressive disorder, recurrent, moderate F33.1 and Problems related to release from half-way Z65.2 [place] [id number] [place] [address] 86391- 0272 Dec, Encounter for immunization Z23 ; Problems related to release from half-way Z65.2 ; Sleep apnea, obstructive G47.33 and Post-traumatic stress disorder, chronic F43.12 [place] [id number] [place] [address] 70275- 6305 18 Dec, 2015 Sleep apnea, obstructive G47.33 ; Hyperlipidemia E78.5 ; Chronic pain G89.29 ; Glaucoma H40.9 ; HTN (hypertension) I10 ; Post-traumatic stress disorder, unspecified F43.10 ; Anxiety F41.9 ; Chronic tension headaches G44.229 ; Mitral valve prolapse I34.1 and CAD (coronary artery disease) I25.10 [place] [id number] [place] [address] 89223- 8411 15 Dec, 2015 Post-traumatic stress disorder, unspecified F43.10 ; Major depressive disorder, recurrent, moderate F33.1 and Problems related to release from half-way Z65.2 [place] [id number] [place] [address] 91690- 4138 Nov, Chronic pain G89.29 [place] [address] [address]- 2100 Nov, Post-traumatic stress disorder, unspecified F43.10 ; Major depressive disorder, recurrent, moderate F33.1 and Problems related to release from half-way Z65.2 [place] [address] [address]- 5332 Oct, [place] [id number] [place] [address] 85051- 8172 Oct, [place] [id number] [place] [address] 18620- 7459 Oct, Post-traumatic stress disorder, unspecified F43.10 ; Major depressive disorder, recurrent, moderate F33.1 and Problems related to release from half-way Z65.2 [place] [id number] [place] [address] 19742- 4764 08 Oct, 2015 [place] [id number] [place] [address] 20768- 0716 07 Oct, 2015 Environmental allergies Z91.09 ; Cough R05 and 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 [place] [address] [address]- 3139 Sep, [place] [address] [address]- 0288 Sep, Post-traumatic stress disorder, unspecified F43.10 ; Major depressive disorder, recurrent, moderate F33.1 and Problems related to release from half-way Z65.2 [place] [address] [address]- 4699 Sep, Chronic pain G89.29 [place] [id number] [place] [address] 36044- 7703 Sep, Pain in left shoulder M25.512 ; Pain in right shoulder M25.511 and Other chronic pain G89.29 [place] [id number] [address] 3006 Sep, [facility] [address] 1613 Sep, [facility] [address] 9897 Sep, [facility] [id number] [id number] Aug, Dental examination Z01.20 [facility] [id number] [place] [address] 09950- 0161 Aug, Post-traumatic stress disorder, unspecified F43.10 ; Open- angle glaucoma of both 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 and Problems related to release from half-way Z65.2 [place] [id number] [place] [address] 38347- 8552 Aug, [facility] [id number] [place] [address] 05967- 9585 Aug, Sleep apnea, obstructive G47.33 ; Obesity E66.9 ; Hyperlipidemia E78.5 ; Bilateral headaches R51 ; HTN (hypertension) I10 ; Post- traumatic stress disorder, unspecified F43.10 ; Anxiety F41.9 ; Neuropathy G62.9 ; Glaucoma H40.9 and Chronic pain G89.29 [facility] [id number] [id number] Aug, Encounter for dental examination Z01.20 [facility] [id number] [place] [address] 66790- 9824 Aug, Post-traumatic stress disorder, unspecified F43.10 ; Major depressive disorder, recurrent, moderate F33.1 and Problems related to release from half-way Z65.2 [facility] [address] [address] 0826 Aug, [facility] [address], [place] [address]- 5950 Jul, [place] [address], [place] [address]- 7512 Jul, Post-traumatic stress disorder, unspecified F43.10 and Major depressive disorder, recurrent, moderate F33.1 [facility] [address] [address]- 3343 Jul, [facility] [address], [place] [address]- 0825 Jul, [facility] [id number] [place] [address] 30171- 6091 Jul, Chronic pain G89.29 [facility] [id number] [place] [address] 85571- 3684 June, Post-traumatic stress disorder, unspecified F43.10 and Major depressive disorder, recurrent, moderate F33.1 [facility] [id number] [place] [address] 76153- 6997 June, [facility] [id number] [place] [address] 20831- 6903 June, Chronic pain G89.29 [facility] [id number] [place] [address] 73604- 1416 June, Post-traumatic stress disorder, unspecified F43.10 and Major depressive disorder, recurrent, moderate F33.1 [facility] [address] [address]- 4714 May, Post-traumatic stress disorder, unspecified F43.10 and Major depressive disorder, recurrent, moderate F33.1 [facility] [address], [place] [address]- 1640 May, [facility] [id number] [place] [address] 86825- 0053 May, [facility] [address] [address]- 3400 May, [facility] [id number] [place] [address] 79113- 4900 Apr, [facility] [id number] [place] [address] 20675- 4253 Apr, Post-traumatic stress disorder, unspecified F43.10 and Sleep apnea, obstructive G47.33 [facility] [id number] [place] [address] 51802- 8819 Apr, [facility] [id number] [place] [address] 58415- 6333 Apr, Shoulder pain, left M25.512 [facility] [id number] [place] [address] 26263- 8933 Apr, Post-traumatic stress disorder, unspecified F43.10 and Major depressive disorder, recurrent, moderate F33.1 [place] [id number] [place] [address] 54149- 2438 Apr, [place] [id number] [place] [address] 88902- 6248 Apr, [facility] [id number] [place] [address] 64769- 4680 08 Apr, 2015 [place] [id number] [place] [address] 97024- 6810 Apr, Left shoulder pain M25.512 [facility] [id number] [place] [address] 08947- 5422 Mar, [facility] [id number] [place] [address] 66452- 0897 Mar, [facility] [id number] [place] [address] 75850- 4077 Mar, [facility] [id number] [place] [address] 39908- 5850 12 Mar, 2015 Sleep apnea, obstructive G47.33 ; Obesity E66.9 ; Chronic pain G89.29 ; Hyperlipidemia E78.5 ; HTN (hypertension) I10 ; 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 ; Major depressive disorder, recurrent, moderate F33.1 and Anxiety F41.9 [place] [id number] [place] [address] 48641- 1229 Mar, [place] [id number] [place] [address] 90291- 1722 Mar, Post-traumatic stress disorder, unspecified F43.10 and Major depressive disorder, recurrent, moderate F33.1 [place] [id number] [place] [address] 16721- 6322 08 Mar, [address] 87817- 9241 04 Mar, 2015 HTN (hypertension) I10 ; 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 ; Obesity E66.9 ; Hyperlipidemia E78.5 ; Glaucoma H40.9 ; Chronic pain G89.29 and CAD (coronary artery disease) I25.10 [place] [id number] [place] [address] 99937- 0703 Feb, [place] [id number] [place] [address] 51362- 3697 Feb, Post-traumatic stress disorder, unspecified F43.10 ; Obesity E66.9 ; Sleep apnea, obstructive G47.33 and 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 [place] [id number] [place] [address] 47523- 7012 Feb, Post-traumatic stress disorder, unspecified F43.10 and Major depressive disorder, recurrent, moderate F33.1 [place] [id number] [place] [address] 90132- 9177 Feb, [address] 55572- 9402 Feb, [place] [id number] [place] [address] 18963- 5935 Feb, HTN (hypertension) I10 ; Post-traumatic stress disorder, unspecified F43.10 ; 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 ; Obesity E66.9 ; Hyperlipidemia E78.5 ; Chronic pain G89.29 ; Glaucoma H40.9 ; Mitral valve prolapse I34.1 and Bilateral headaches R51 [place] [id number] [place] [address] 42782- 9197 Feb, [place] [address] 138621- 6957 Feb, Post-traumatic stress disorder, unspecified F43.10 and Major depressive disorder, recurrent, moderate F33.1 [place] [address] 043042- 1666 Feb, [place] [address] 62741- 0505 Feb, [place] [address] 23603- 7953 Jan, [place] [address] 52663- 8821 Jan, [place] [address] 97309- 1811 Jan, Obesity E66.9 ; HTN (hypertension) I10 ; 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 ; Major depressive disorder, recurrent, moderate F33.1 ; Glaucoma H40.9 ; Hyperlipidemia E78.5 ; Sleep apnea, obstructive G47.33 ; Chronic pain G89.29 ; Anxiety F41.9 ; Chronic tension headaches G44.229 and Cough R05 [place] [id number] [place] [address] 13395- 3749 Jan, [address] 92367- 6485 Jan, [place] [id number] [place] [address] 31078- 0773 Jan, Post-traumatic stress disorder, unspecified F43.10 ; Obesity E66.9 ; Sleep apnea, obstructive G47.33 and 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 [place] [id number] [place] [address]- 4964 Jan, [place] [address] [place] [address]- 0472 Jan, Post-traumatic stress disorder, unspecified F43.10 and Major depressive disorder, recurrent, moderate F33.1 [place] 890246- 2696 Dec, [place] [address] [place] [id number]- 0160 Dec, Sleep apnea, obstructive G47.33 ; Obesity E66.9 ; Hyperlipidemia E78.5 ; Glaucoma H40.9 ; Chronic pain G89.29 ; HTN (hypertension ) I10 ; 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 ; Anxiety F41.9 and CAD (coronary artery disease) I25.10 [place] [address] 36775- 7213 Nov, [address] 099510- 3004 Nov, [place] [address] 12445- 1096 Nov, [address] 59509- 3481 Nov, [place] [address] 86233- 7624 Nov, [address] 58021- 9361 Nov, Encounter for immunization Z23 ; Sleep apnea, obstructive G47.33 ; Obesity E66.9 ; Hyperlipidemia E78.5 ; Glaucoma H40.9 ; Chronic pain G89.29 ; Anxiety F41.9 ; Chronic tension headaches G44.229 and HTN (hypertension ) I10 [address] [place] [address]- 6917 19 Nov, 2014 [facility] [id number] [place] [address] 60029- 3052 14 Nov, 2014 [facility] [id number] [place] [address] 99383- 4016 06 Nov, 2014 Dizziness R42 [facility] [id number] [place] [address] 52454- 3155 Nov, [facility] [id number] [place] [address] 46172- 7279 29 Oct, 2014 [facility] [id number] [place] [address] 40438- 4313 28 Oct, 2014 [facility] [id number] [place] [address] 29749- 0470 Oct, [facility] [id number] [place] [address] 34880- 1062 Oct, [facility] [id number] [place] [address] 37972- 2924 17 Oct, 2014 Dizziness 780.4 ; Essential hypertension 401.9 ; Obesity 278.00 ; Hyperlipidemia 272.4 ; Chronic pain 338.29 ; Glaucoma 365.9 and Anxiety 300.00 [facility] [id number] [place] [address] 50373- 2961 Oct, Essential hypertension 401.9 ; Hyperlipidemia 272.4 ; Glaucoma 365.9 ; Obesity 278.00 ; Chronic pain 338.29 and Allergy to insects V15.06 [facility] [address], [place] [address]- 8542 Sep, [facility] [id number] [place] [address] 25433- 5217 Sep, [facility] [id number] [place] [address] 32550- 2657 Sep, [facility] [id number] [place] [address] 32274- 9162 Sep, [facility] [address] [facility] [id number] [place] [address]- 5914 Aug, Essential hypertension 401.9 ; Obesity 278.00 ; Hyperlipidemia 272.4 ; Glaucoma 365.9 ; Lipoma 214.9 ; Mitral valve prolapse 424.0 ; Angina at rest 413.9 ; Lymphedema 457.1 and Chronic pain 338.29 IMMUNIZATIONS No Known Immunizations SOCIAL HISTORY Never Assessed REASON FOR VISIT med refill PLAN OF CARE VITAL SIGNS MEDICATIONS Medication Instructions Dosage Frequency Start Date End Date Duration Status Cartia XT 300 MG Orally Once a day 1 capsule 24h 90 days Active RESULTS No Results [...]
--- OUTSIDE RECORDS SUMMARY | 2018-02-04 14:06 | XMS REPORT ---
Author Author ALENA ÁLVAREZ [facility] Address [address] [place] [address] Care Team Providers Care Cause Analyst Name Role Phone ALENA ÁLVAREZ Unavailable PROBLEMS Type Condition ICD9-CM Code OYN32-CF Code Onset Dates Condition Status SNOMED Code Problem Hyperlipidemia E78.5 Active 55866399 Problem Sleep apnea, obstructive G47.33 Active 83991239 Problem Primary insomnia F51.01 Active 7737715 Problem Chronic pain G89.29 Active 62024658 Problem Morbid (severe) obesity due to excess calories E66.01 Active 762655152 Problem Myocarditis, unspecified chronicity, 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 Active 77629504 Problem Other male erectile dysfunction N52.8 Active 286131964 Problem 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 Active 757264173 Problem Body mass index (BMI) of 40.0-44.9 in adult Z68.41 Active 642608586 Problem Supraventricular tachycardia I47.1 Active 4309579 Problem Insomnia disorder with non-sleep disorder mental comorbidity G47.00 Active 38448883 Problem Chronic tension headaches G44.229 Active 256930033 Problem HTN (hypertension) I10 Active 92619744 Problem 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 Active 584170354 Problem Chronic pain syndrome G89.4 Active 038904174 Problem Migraine without aura and without status migrainosus, not intractable G43.009 Active 356412933 Problem Sarcoidosis D86.9 Active 50714829 Problem Problems related to [facility] Z65.2 Active 843265838648040 Problem 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 Active 84081024 Problem Mitral valve prolapse I34.1 Active 752281018 Problem Anxiety F41.9 Active 92925451 Problem Major depressive disorder, recurrent, moderate F33.1 Active 62566053 Problem Environmental allergies Z91.09 Active 562985320 Problem Arrhythmia as indication for cardiac pacemaker replacement I49.9 Active 45719099 Problem CAD (coronary artery disease) I25.10 Active 18050300 Problem Post-traumatic stress disorder, chronic F43.12 Active 606980756 ALLERGIES No Information ENCOUNTERS Encounter Location Date Diagnosis [facility] [address] [address] Dec, [facility] [id number] [place] [address] 09766- 7205 16 Nov, 2017 [facility] [address] 39598- 3766 10 Nov, 2017 Encounter for long-term (current) use of other medications Z79.899 [place] [address] 6[address]34- 9494 02 Nov, 2017 [facility] [address] 78941- 3557 01 Nov, 2017 Left leg pain M79.605 [facility] [address] [id number] 28 Oct, 2017 Dental examination Z01.20 [facility] [id number] [place] [address] 84506- 6968 25 Oct, 2017 Insomnia disorder with non-sleep disorder mental comorbidity G47.00 [facility] [id number] [place] [address] 93152- 2217 25 Oct, 2017 Post-traumatic stress disorder, chronic F43.12 ; Insomnia disorder with non-sleep disorder mental comorbidity G47.00 and BMI 40.0-44.9, adult Z68.41 [facility] [id number] [place] [address] 68739- 7369 19 Oct, 2017 [facility] [address] [address] 18 Oct, 2017 Insect bite (nonvenomous), left lower leg, initial encounter S80.862A ; Bitten or stung by nonvenomous insect and other nonvenomous arthropods, initial encounter W57.XXXA and BMI 40.0-44.9, adult Z68.41 [facility] [id number] [place] [address] 47540- 8327 06 Oct, 2017 Left leg pain M79.605 [facility] [id number] [place] [address] 30290- 7735 04 Oct, 2017 Post-traumatic stress disorder, unspecified F43.10 ; Major depressive disorder, recurrent, moderate F33.1 and Problems related to [facility] Z65.2 [facility] [address] 86[address]- 8515 2017 Arrhythmia as indication for cardiac pacemaker replacement I49.9 [place] [address] 10284- 7567 Sep, [place] [id number] [place] [address] 89673- 6221 20 Sep, 2017 HTN (hypertension) I10 [place] [address] 24421- 2179 17 Sep, 2017 [facility] [id number] [place] [address] 46973- 5407 16 Sep, 2017 Body mass index (BMI) of 40.0-44.9 in adult Z68.41 ; Chronic pain G89.29 and Supraventricular tachycardia I47.1 [place] [id number] [place] [address] 15029- 5260 15 Sep, 2017 [facility] [id number] [place] [address] 78048- 6103 Sep, Sarcoidosis D86.9 [facility] [id number] [place] [address] 35890- 6844 Sep, Sarcoidosis D86.9 [facility] [address] 31313- 3181 Sep, [facility] [id number] [place] [address] 48072- 8193 Sep, [facility] [address] [place] [address] 3090 Sep, [facility] [address] [address] Sep, [facility] [address] [place] [address] 90798- 8180 Sep, Left leg pain M79.605 [facility] [address] [place] [address] 00591- 8611 Sep, HTN (hypertension) I10 [facility] [address] [place] [address] 32996- 6359 Sep, [facility] [address] [place] [address] 28968- 8028 Sep, Post-traumatic stress disorder, unspecified F43.10 ; Major depressive disorder, recurrent, moderate F33.1 and Problems related to [facility] Z65.2 [facility] [address] [place] [address] 73821- 9246 Sep, [facility] [address] [place] [address] 63572- 7140 Aug, [facility] [address] [place] [address] 91861- 9395 Aug, Sarcoidosis D86.9 [facility] [address] [address] 1480 Aug, Sarcoidosis D86.9 [facility] [address] [address] 04[address] Aug, HTN (hypertension) I10 [facility] [address] [place] [address] 83002- 8881 Aug, Post-traumatic stress disorder, unspecified F43.10 ; Major depressive disorder, recurrent, moderate F33.1 and Problems related to [facility] Z65.2 [facility] [address] [place] [address] 02350- 8195 Aug, [facility] [id number] [place] [address] 12437- 9763 09 Aug, 2017 Left leg pain M79.605 [place] [id number] [place] [address] 26115- 9293 Jul, Post-traumatic stress disorder, chronic F43.12 ; Anxiety F41.9 ; Problems related to [facility] Z65.2 and BMI 40.0-44.9, adult Z68.41 [place] [address] 37183- 7441 20 Jul, 2017 HTN (hypertension) I10 ; Body mass index (BMI) of 40.0-44.9 in adult Z68.41 ; Acute swimmer''s ear of both sides H60.333 and Chronic pain G89.29 [place] [address] 38948- 4869 19 Jul, 2017 Glaucoma H40.9 [place] [address] 26252- 5056 14 Jul, 2017 [place] [address] 66453- 3969 13 Jul, 2017 Sarcoidosis D86.9 [place] [address] 22517- 0160 12 Jul, 2017 Left leg pain M79.605 [place] [address] 87378- 8213 12 Jul, 2017 Sarcoidosis D86.9 [place] [id number] [place] [address] 41444- 6680 Jul, Post-traumatic stress disorder, unspecified F43.10 ; Major depressive disorder, recurrent, moderate F33.1 and Problems related to [facility] Z65.2 [place] [id number] [place] [address] 84453- 3237 June, [facility] [address] [address] -8822 June, Sore throat J02.9 and BMI 40.0-44.9, adult Z68.41 [facility] [id number] [place] [address] 00572- 9536 June, [facility] [id number] [place] [address] 22691- 8349 June, [facility] [id number] [place] [address] 08902- 8470 June, [facility] [id number] [place] [address] 58649- 0790 June, Left leg pain M79.605 [facility] [id number] [place] [address] 64076- 4504 June, Sarcoidosis D86.9 [facility] [id number] [place] [address] 54001- 9929 June, [facility] [id number] [place] [address] 62477- 9173 June, [facility] [id number] [place] [address] 17638- 0434 June, Left leg pain M79.605 [facility] [address] [address]- 3149 May, [facility] [id number] [place] [address] 69052- 4060 May, [facility] [address] [place] [address] 90762- 0403 May, [facility] [id number] [place] [address] 51856- 0164 May, Left leg pain M79.605 [facility] [address] [address]- 1421 May, Post-traumatic stress disorder, unspecified F43.10 ; Major depressive disorder, recurrent, moderate F33.1 and Problems related to [facility] Z65.2 [facility] [id number] [place] [address] 47199- 6115 May, Chronic pain G89.29 ; Anxiety F41.9 ; Chest pain, unspecified type R07.9 and BMI 40.0-44.9, adult Z68.41 [place] [address] 94245- 8171 30 Apr, 2017 [facility] [address] 71858- 4050 29 Apr, 2017 Left leg pain M79.605 [place] [address] 69576- 6978 27 Apr, 2017 Post-traumatic stress disorder, unspecified F43.10 ; Problems related to [facility] Z65.2 ; Anxiety F41.9 and BMI 40.0-44.9 , adult Z68.41 [place] [id number] [place] [address] 24448- 0539 Apr, [facility] [id number] [place] [address] 58621- 2580 Apr, Left leg pain M79.605 [place] [id number] [place] [address] 44141- 9735 Apr, Post-traumatic stress disorder, unspecified F43.10 ; Major depressive disorder, recurrent, moderate F33.1 and Problems related to [facility] Z65.2 [place] [id number] [place] [address] 50333- 1653 Apr, [place] [address] 28435- 8532 Apr, Chronic pain G89.29 ; 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 ; Morbid (severe) obesity due to excess calories E66.01 ; Anxiety F41.9 and BMI 40.0-44.9, adult Z68.41 [facility] [address] 22344 -5419 Apr, Sore throat J02.9 and BMI 40.0-44.9, adult Z68.41 [place] [address] 18241- 9260 Apr, Left leg pain M79.605 [facility] [address] [id number] Mar, Dental examination Z01.20 [facility] [address] 66088- 6507 Mar, [facility] [address] 34705 -7467 Mar, Cough R05 ; Viral gastroenteritis A08.4 and BMI 40.0-44.9, adult Z68.41 [place] [address] 06002- 9028 Mar, Left leg pain M79.605 [place] [address] 41914- 2211 Mar, Post-traumatic stress disorder, unspecified F43.10 ; Major depressive disorder, recurrent, moderate F33.1 and Problems related to [facility] Z65.2 [place] [address] 58017- 6883 Feb, Left leg pain M79.605 [facility] [address] 22694- 4440 Feb, [place] [address] 75320- 2972 Feb, BMI 40.0-44.9, adult Z68.41 ; Chronic pain syndrome G89.4 ; Migraine without aura and without status migrainosus, not intractable G43.009 ; Mitral valve prolapse I34.1 and 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 [facility] [address] 86694- 3098 Feb, Post-traumatic stress disorder, chronic F43.12 ; Anxiety F41.9 ; Problems related to release from [facility] Z65.2 and BMI 40.0-44.9, adult Z68.41 [facility] [address] [place] [address] 72981- 3174 Feb, Post-traumatic stress disorder, unspecified F43.10 ; Major depressive disorder, recurrent, moderate F33.1 and Problems related to release from [facility] Z65.2 [facility] [id number] [place] [address] 78515- 0386 Feb, Left leg pain M79.605 [place] [id number] [place] [address] 55115- 4569 Jan, Post-traumatic stress disorder, unspecified F43.10 ; Major depressive disorder, recurrent, moderate F33.1 and Problems related to release [facility] Z65.2 [place] [id number] [place] [address] 80691- 7573 Jan, [place] [id number] [place] [address] 13705- 2297 Jan, [place] [id number] [place] [address] 30175- 7330 Jan, Anxiety F41.9 [place] [id number] [place] [address] 16668- 3529 Jan, Left leg pain M79.605 [facility] [id number] [place] [address] 93026- 7078 Dec, Left leg pain M79.605 [place] [id number] [place] [address] 39918- 4643 Dec, [place] [id number] [place] [address] 56977- 1775 Dec, Post-traumatic stress disorder, unspecified F43.10 ; Major depressive disorder, recurrent, moderate F33.1 and Problems related to release [facility] Z65.2 [facility] [id number] [place] [address] 36723- 9758 31 Nov, 2016 Chronic pain G89.29 and Anxiety F41.9 [place] [address] [place] [address]1068- 7203 24 Nov, 2016 Chronic pain G89.29 and Anxiety F41.9 [place] [address] [place] [address] 561066- 9033 16 Nov, 2016 Post-traumatic stress disorder, unspecified F43.10 ; Major depressive disorder, recurrent, moderate F33.1 and Problems related to [facility] Z65.2 [place] [address] 06351- 9507 09 Nov, 2016 Other abnormal findings in specimens from other organs, systems and tissues R89.8 ; Other male erectile dysfunction N52.8 ; Body mass index (BMI) of 40.0-44.9 in adult Z68.41 and Morbid (severe) obesity due to excess calories E66.01 [place] [address] 10934- 5068 02 Nov, 2016 Post-traumatic stress disorder, unspecified F43.10 ; Major depressive disorder, recurrent, moderate F33.1 and Problems related to release [facility] Z65.2 [facility] [address] [id number] Oct, Dental examination Z01.20 [place] [id number] [place] [address] 43579- 6431 Oct, [place] [address] 27571- 9544 Oct, Encounter for immunization Z23 [place] [address] 18988- 3559 26 Oct, 2016 Chronic pain G89.29 ; Anxiety F41.9 ; Arrhythmia as indication for cardiac pacemaker replacement I49.9 and Glaucoma H40.[address] [place] [address]- 9654 Oct, Anxiety F41.9 ; Post-traumatic stress disorder, chronic F43.12 and Problems related to release [facility] Z65.2 [place] [id number] [place] [address]857 07 Oct, 2016 Post-traumatic stress disorder, unspecified F43.10 ; Major depressive disorder, recurrent, moderate F33.1 and Problems related to release [facility] Z65.2 [place] [address] 02597- 4965 Sep, Chronic pain G89.29 and Anxiety F41.9 [place] [address] 56327- 6644 Sep, Post-traumatic stress disorder, unspecified F43.10 ; Major depressive disorder, recurrent, moderate F33.1 and Problems related to release [facility] Z65.2 [place] [id number] [place] [address] 31175- 3385 Sep, Post-traumatic stress disorder, unspecified F43.10 ; Major depressive disorder, recurrent, moderate F33.1 and Problems related to release [facility] Z65.2 [place] [id number] [place] [address] 08937- 3946 Sep, Chronic pain G89.29 [place] [id number] [place] [address] 82240- 9479 Aug, Dental caries, unspecified K02.9 [place] [id number] [place] [address] 84445- 0505 Aug, Sleep apnea, obstructive G47.33 ; Obesity E66.9 ; Chronic pain G89.29 ; HTN (hypertension) I10 ; Major depressive disorder, recurrent, moderate F33.1 ; Anxiety F41.9 ; Chronic tension headaches G44.229 ; Mitral valve prolapse I34.1 ; Arrhythmia as indication for cardiac pacemaker replacement I49.9 ; Dental caries, unspecified K02.9 ; Primary insomnia F51.01 and Hyperlipidemia E78.5 [facility] [address] [place] [address] 05604- 2561 Aug, Post-traumatic stress disorder, unspecified F43.10 ; Major depressive disorder, recurrent, moderate F33.1 and Problems related to release [facility] Z65.2 [facility] [id number] [place] [address] 73998- 3845 Aug, Dental examination Z01.20 [facility] [id number] [place] [address] [id number] 13 Aug, 2016 Dental examination Z01.20 [facility] [id number] [place] [address] 77731- 8697 06 Aug, 2016 Post-traumatic stress disorder, unspecified F43.10 ; Major depressive disorder, recurrent, moderate F33.1 and Problems related to release [facility] Z65.2 [facility] [id number] [place] [address] 63317- 4951 Aug, Chronic pain G89.29 and Primary insomnia F51.01 [facility] [id number] [place] [address] 26277- 1044 Jul, [facility] [id number] [place] [address] 54249- 2994 Jul, [facility] [id number] [place] [address] 44894- 4407 Jul, Nausea R11.0 [facility] [id number] [place] [address] 97524- 3720 Jul, Arrhythmia as indication for cardiac pacemaker replacement I49.9 [facility] [id number] [place] [address] 61892- 0541 Jul, Post-traumatic stress disorder, unspecified F43.10 ; Major depressive disorder, recurrent, moderate F33.1 and Problems related to release [facility] Z65.2 [facility] [id number] [place] [address] 08597- 7385 Jul, Anxiety F41.9 [place] [id number] [place] [address] 03086- 9731 08 Jul, 2016 Chronic pain G89.29 [place] [id number] [place] [address] 12277- 2428 Jul, Sleep apnea, obstructive G47.33 ; Hyperlipidemia E78.5 ; Chronic pain G89.29 ; 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 ; Major depressive disorder, recurrent, moderate F33.1 ; Anxiety F41.9 ; Mitral valve prolapse I34.1 ; Arrhythmia as indication for cardiac pacemaker replacement I49.9 ; Primary insomnia F51.01 ; Bilateral headaches R51 and Environmental allergies Z91.[address] 86752- 8213 Jul, Post-traumatic stress disorder, unspecified F43.10 ; Major depressive disorder, recurrent, moderate F33.1 and Problems related to [facility] Z65.2 [place] [id number] [place] [address] 98363- 9632 June, Post-traumatic stress disorder, chronic F43.12 ; Anxiety F41.9 ; Problems related to [facility] Z65.2 ; Sleep apnea, obstructive G47.33 and Primary insomnia F51.01 [place] [id number] [place] [address] 73402- 8141 June, [place] [id number] [place] [address] 69889- 3175 June, [place] [id number] [place] [address] 89917- 2511 June, [place] [id number] [place] [address] 67489- 9299 June, Chronic pain G89.29 [place] [id number] [place] [address] 11643- 2290 June, Chronic pain G89.29 [place] [id number] [place] [address] 26199- 4540 June, Lipoma of left lower extremity D17.24 ; Open wound T14.8 and Swelling of left lower extremity M79.89 [place] [id number] [place] [address] 55337- 9747 June, Post-traumatic stress disorder, unspecified F43.10 ; Major depressive disorder, recurrent, moderate F33.1 and Problems related to [facility] Z65.2 [place] [address] 88388- 5015 May, Lipoma of left lower extremity D17.24 ; Major depressive disorder, recurrent, moderate F33.1 ; Sleep apnea, obstructive G47.33 ; Hyperlipidemia E78.5 ; Obesity E66.9 ; HTN (hypertension) I10 ; Glaucoma H40.9 ; CAD (coronary artery disease) I25.10 ; Chronic tension headaches G44.229 ; Chronic pain G89.29 ; Anxiety F41.9 ; Nausea R11.0 and Primary insomnia F51.01 [place] [id number] [place] [address] 66032- 2683 May, [place] [address] 24035- 3633 May, Chronic pain G89.29 [place] [id number] [place] [address] 17401- 9916 May, [place] [id number] [place] [address] 62705- 4559 Apr, Post-traumatic stress disorder, unspecified F43.10 ; Major depressive disorder, recurrent, moderate F33.1 and Problems related to [facility] Z65.2 [place] [id number] [place] [address] 13877- 5008 Apr, Primary insomnia F51.01 ; Post-traumatic stress disorder, chronic F43.12 and Problems related to [facility] Z65.2 [place] [id number] [place] [address] 74155- 3460 Apr, Post-traumatic stress disorder, unspecified F43.10 ; Major depressive disorder, recurrent, moderate F33.1 and Problems related to [facility] Z65.2 [place] [id number] [place] [address] 67885- 1407 16 Apr, 2016 [place] [id number] [place] [address] 30799- 2506 16 Apr, 2016 Sleep apnea, obstructive G47.33 ; Chronic pain G89.29 ; HTN (hypertension) I10 ; Mitral valve prolapse I34.1 ; Shoulder pain, left M25.512 ; Arrhythmia as indication for cardiac pacemaker replacement I49.9 ; Glaucoma H40.9 ; Bilateral headaches R51 ; Environmental allergies Z91.09 ; Primary insomnia F51.01 and Nausea R11.0 [place] [id number] [place] [address] 49762- 6303 15 Apr, 2016 [place] [id number] [place] [place] [address] 29614- 0756 Apr, [place] [address] [place] [id number] [place] [address] 38277- 9432 Apr, Post-traumatic stress disorder, unspecified F43.10 ; Major depressive disorder, recurrent, moderate F33.1 and Problems related to [facility] Z65.2 [place] [id number] [place] [address] 47779- 3189 Apr, HTN (hypertension) I10 [place] [facility] [id number] [place] [address] 06899- 4753 Apr, HTN (hypertension) I10 [place] [facility] [id number] [place] [address] 52506- 9159 14 Mar, 2016 Chronic pain G89.29 ; Primary insomnia F51.01 and Problems related to release [facility] Z65.2 [place] [facility] [address] [place] [address] 84092- 3667 07 Mar, 2016 Post-traumatic stress disorder, unspecified F43.10 ; Major depressive disorder, recurrent, moderate F33.1 and Problems related to [facility] Z65.2 [place] [address] [place] [address] 23371- 7191 Feb, Post-traumatic stress disorder, unspecified F43.10 ; Major depressive disorder, recurrent, moderate F33.1 and Problems related to [facility] Z65.2 [place] [id number] [place] [address] 38905- 7552 Feb, Chronic tension headaches G44.229 [place] [facility] [id number] [place] [address] 87584- 3310 Feb, Sleep apnea, obstructive G47.33 ; Obesity E66.9 ; Hyperlipidemia E78.5 ; Glaucoma H40.9 ; Chronic pain G89.29 ; HTN (hypertension ) I10 ; 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 ; 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 ; Chronic tension headaches G44.229 ; Cough R05 ; CAD (coronary artery disease) I25.10 ; Problems related to [facility] Z65.2 ; Arrhythmia as indication for cardiac pacemaker replacement I49.9 and Primary insomnia F51.01 [place] [facility] [id number] [place] [address] 61356- 0131 Feb, Post-traumatic stress disorder, unspecified F43.10 and Chronic pain G89.[address] [place] [address] 36806- 2354 Feb, [facility] [address] [place] [address] [id number] Feb, Dental caries K02.9 [place] [address] [place] [address] 11932- 5437 Feb, [place] [id number] [place] [address] 76791- 2616 Feb, Post-traumatic stress disorder, unspecified F43.10 ; Major depressive disorder, recurrent, moderate F33.1 and Problems related to [facility] Z65.2 [place] [id number] [place] [address] 05338- 0568 Jan, Sleep apnea, obstructive G47.33 and Chronic pain G89.29 [place] [id number] [place] [address] 85318- 0385 Jan, [place] [id number] [place] [address] 10740- 2593 Jan, Dental examination Z01.20 [place] [address] 83324- 8405 Jan, [place] [id number] [place] [address] 24039- 9045 Jan, [place] [address] 03835- 2704 Dec, Post-traumatic stress disorder, unspecified F43.10 ; Major depressive disorder, recurrent, moderate F33.1 and Problems related to [facility] Z65.2 [place] [id number] [place] [address] 76789- 0168 Dec, Encounter for immunization Z23 ; Problems related to [facility] Z65.2 ; Sleep apnea, obstructive G47.33 and Post-traumatic stress disorder, chronic F43.12 [place] [id number] [place] [address] 27248- 0170 18 Dec, 2015 Sleep apnea, obstructive G47.33 ; Hyperlipidemia E78.5 ; Chronic pain G89.29 ; Glaucoma H40.9 ; HTN (hypertension) I10 ; Post-traumatic stress disorder, unspecified F43.10 ; Anxiety F41.9 ; Chronic tension headaches G44.229 ; Mitral valve prolapse I34.1 and CAD (coronary artery disease) I25.10 [place] [id number] [place] [address] 99965- 0211 15 Dec, 2015 Post-traumatic stress disorder, unspecified F43.10 ; Major depressive disorder, recurrent, moderate F33.1 and Problems related to [facility] Z65.2 [place] [id number] [place] [address] 55640- 6171 Nov, Chronic pain G89.29 [place] [address] [address] 0441 Nov, Post-traumatic stress disorder, unspecified F43.10 ; Major depressive disorder, recurrent, moderate F33.1 and Problems related to [facility] Z65.2 [place] [address] [address]- 0584 Oct, [place] [id number] [place] [address] 60364- 6207 Oct, [place] [id number] [place] [address] 19373- 8750 Oct, Post-traumatic stress disorder, unspecified F43.10 ; Major depressive disorder, recurrent, moderate F33.1 and Problems related to [facility] Z65.2 [place] [id number] [place] [address] 79010- 4550 08 Oct, 2015 [place] [address] [id number] [place] [address] 85128- 4892 07 Oct, 2015 Environmental allergies Z91.09 ; Cough R05 and 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 [place] [address] [address]- 8886 Sep, [place] [address] [place] [address] 09659- 9237 Sep, Post-traumatic stress disorder, unspecified F43.10 ; Major depressive disorder, recurrent, moderate F33.1 and Problems related to [facility] Z65.2 [place] [address] [place] [address] 52541- 9608 Sep, Chronic pain G89.29 [place] [id number] [place] [address] 68461- 5477 Sep, Pain in left shoulder M25.512 ; Pain in right shoulder M25.511 and Other chronic pain G89.29 [place] [id number] [address] 1546 Sep, [facility] [address] [address]- 9568 Sep, [facility] [address] [id number] 1009 Sep, [facility] [address] [place] [address] [id number] Aug, Dental examination Z01.20 [facility] [id number] [place] [address] 23889- 1590 Aug, Post-traumatic stress disorder, unspecified F43.10 ; Open- angle glaucoma of both 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 and Problems related to [facility] Z65.2 [place] [id number] [place] [address] 02668- 4677 Aug, [place] [address] [address] [id number] [place] [address] 35859- 4659 Aug, Sleep apnea, obstructive G47.33 ; Obesity E66.9 ; Hyperlipidemia E78.5 ; Bilateral headaches R51 ; HTN (hypertension) I10 ; Post- traumatic stress disorder, unspecified F43.10 ; Anxiety F41.9 ; Neuropathy G62.9 ; Glaucoma H40.9 and Chronic pain G89.29 [facility] [address] [id number] Aug, Encounter for dental examination Z01.20 [facility] [id number] [place] [address] 52728- 0945 Aug, Post-traumatic stress disorder, unspecified F43.10 ; Major depressive disorder, recurrent, moderate F33.1 and Problems related [facility] Z65.2 [facility] [address] [address]- 8964 Aug, [facility] [address] [address]- 9595 Jul, [place] [address] [address]- 7864 Jul, Post-traumatic stress disorder, unspecified F43.10 and Major depressive disorder, recurrent, moderate F33.1 [facility] [address] [address]- 7411 Jul, [facility] [address] [address]- 7769 Jul, [facility] [id number] [place] [address] 16085- 5180 Jul, Chronic pain G89.29 [facility] [id number] [place] [address] 29680- 8125 June, Post-traumatic stress disorder, unspecified F43.10 and Major depressive disorder, recurrent, moderate F33.1 [facility] [address], [place] [address]- 5151 June, [facility] [address] [address]- 4619 June, Chronic pain G89.29 [facility] [address] [place] [address] 81635- 7022 June, Post-traumatic stress disorder, unspecified F43.10 and Major depressive disorder, recurrent, moderate F33.1 [facility] [address] [address]- 7668 May, Post-traumatic stress disorder, unspecified F43.10 and Major depressive disorder, recurrent, moderate F33.1 [facility] [address] [address]- 4123 May, [facility] [address] [place] [address] 79076- 0191 May, [facility] [address] [address]- 7974 May, [facility] [id number] [place] [address] 30062- 2426 Apr, [facility] [id number] [place] [address] 52665- 7529 Apr, Post-traumatic stress disorder, unspecified F43.10 and Sleep apnea, obstructive G47.33 [facility] [id number] [place] [address] 26754- 1325 Apr, [facility] [address] 18759- 4847 Apr, Shoulder pain, left M25.512 [facility] [address] [id number] [place] [address] 21199- 6489 Apr, Post-traumatic stress disorder, unspecified F43.10 and Major depressive disorder, recurrent, moderate F33.1 [place] [address] 69963- 2964 Apr, [facility] [address] 51834- 9043 Apr, [facility] [id number] [place] [address] 51271- 0969 08 Apr, 2015 [place] [id number] [place] [address] 95832- 0603 07 Apr, 2015 Left shoulder pain M25.512 [facility] [id number] [place] [address] 28704- 1410 Mar, [facility] [address] [id number] [place] [address] 62153- 3259 Mar, [facility] [id number] [place] [address] 82319- 8260 18 Mar, 2015 [facility] [id number] [place] [address] 84452- 3735 12 Mar, 2015 Sleep apnea, obstructive G47.33 ; Obesity E66.9 ; Chronic pain G89.29 ; Hyperlipidemia E78.5 ; HTN (hypertension) I10 ; 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 ; Major depressive disorder, recurrent, moderate F33.1 and Anxiety F41.9 [place] [id number] [place] [address] 35672- 3247 Mar, [place] [id number] [place] [address] 26427- 9359 Mar, Post-traumatic stress disorder, unspecified F43.10 and Major depressive disorder, recurrent, moderate F33.1 [place] [id number] [place] [address] 23106- 6381 08 Mar, 2015 [place] [address] 79864- 6776 04 Mar, 2015 HTN (hypertension) I10 ; 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 ; Obesity E66.9 ; Hyperlipidemia E78.5 ; Glaucoma H40.9 ; Chronic pain G89.29 and CAD (coronary artery disease) I25.10 [place] [id number] [place] [address] 62534- 0231 Feb, [place] [address] [id number] [place] [address] 91569- 9584 Feb, Post-traumatic stress disorder, unspecified F43.10 ; Obesity E66.9 ; Sleep apnea, obstructive G47.33 and 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 [place] [id number] [place] [address] 55548- 2658 Feb, Post-traumatic stress disorder, unspecified F43.10 and Major depressive disorder, recurrent, moderate F33.1 [place] [address] [place] [address] 25646- 2354 Feb, [place] [id number] [place] [address] 67651- 6759 Feb, [place] [id number] [place] [address] 00158- 7434 Feb, HTN (hypertension) I10 ; Post-traumatic stress disorder, unspecified F43.10 ; 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 ; Obesity E66.9 ; Hyperlipidemia E78.5 ; Chronic pain G89.29 ; Glaucoma H40.9 ; Mitral valve prolapse I34.1 and Bilateral headaches R51 [place] [id number] [place] [address] 35007- 5886 Feb, [place] [address] 124409- 1900 Feb, Post-traumatic stress disorder, unspecified F43.10 and Major depressive disorder, recurrent, moderate F33.[address] 286868- 2105 Feb, [place] [address] 65524- 4999 Feb, [place] [address] 44588- 2495 Jan, [place] [address] 40781- 0829 Jan, [address] 14879- 0608 Jan, Obesity E66.9 ; HTN (hypertension) I10 ; 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 ; Major depressive disorder, recurrent, moderate F33.1 ; Glaucoma H40.9 ; Hyperlipidemia E78.5 ; Sleep apnea, obstructive G47.33 ; Chronic pain G89.29 ; Anxiety F41.9 ; Chronic tension headaches G44.229 and Cough R05 [place] [address] [id number] [place] [address] 05574- 7043 Jan, [address] 36166- 1309 Jan, [address] 07480- 3642 Jan, Post-traumatic stress disorder, unspecified F43.10 ; Obesity E66.9 ; Sleep apnea, obstructive G47.33 and 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 [place] [id number] [place] [address]- 8206 Jan, [place] [address] [place] [address]- 6093 Jan, Post-traumatic stress disorder, unspecified F43.10 and Major depressive disorder, recurrent, moderate F33.1 [place] [address]- 3700 Dec, [place] [address] [place] [id number]- 5203 Dec, Sleep apnea, obstructive G47.33 ; Obesity E66.9 ; Hyperlipidemia E78.5 ; Glaucoma H40.9 ; Chronic pain G89.29 ; HTN (hypertension ) I10 ; 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 ; Anxiety F41.9 and CAD (coronary artery disease) I25.10 [place] [address] 25152- 1106 Nov, [address] 69192- 1070 Nov, [address] 49824- 9957 Nov, [place] [id number] [place] [address] 30018- 1136 Nov, [place] [address] 54774- 6938 Nov, [address] 20567- 8837 Nov, Encounter for immunization Z23 ; Sleep apnea, obstructive G47.33 ; Obesity E66.9 ; Hyperlipidemia E78.5 ; Glaucoma H40.9 ; Chronic pain G89.29 ; Anxiety F41.9 ; Chronic tension headaches G44.229 and HTN (hypertension ) I10 [address] [place] [address]- 6497 19 Nov, 2014 [facility] [id number] [place] [address] 27984- 7022 14 Nov, 2014 [facility] [address] [place] [address] 60618- 4087 06 Nov, 2014 Dizziness R42 [facility] [id number] [place] [address] 10482- 0140 Nov, [facility] [id number] [place] [address] 36998- 0542 29 Oct, 2014 [facility] [id number] [place] [address] 28270- 4885 28 Oct, 2014 [facility] [id number] [place] [address] 64416- 5949 Oct, [facility] [id number] [place] [address] 87972- 9319 Oct, [facility] [id number] [place] [address] 55747- 0874 17 Oct, 2014 Dizziness 780.4 ; Essential hypertension 401.9 ; Obesity 278.00 ; Hyperlipidemia 272.4 ; Chronic pain 338.29 ; Glaucoma 365.9 and Anxiety 300.00 [facility] [address] [place] [address] 19407- 0556 02 Oct, 2014 Essential hypertension 401.9 ; Hyperlipidemia 272.4 ; Glaucoma 365.9 ; Obesity 278.00 ; Chronic pain 338.29 and Allergy to insects V15.06 [facility] [address] [address]- 7758 Sep, [facility] [id number] [place] [address] 76048- 3956 Sep, [facility] [address] [place] [address] 12280- 4517 Sep, [facility] [id number] [place] [address] 05999- 6816 Sep, [facility] [address] [facility] [id number] [address]- 1226 Aug, Essential hypertension 401.9 ; Obesity 278.00 ; Hyperlipidemia 272.4 ; Glaucoma 365.9 ; Lipoma 214.9 ; Mitral valve prolapse 424.0 ; Angina at rest 413.9 ; Lymphedema 457.1 and Chronic pain 338.29 IMMUNIZATIONS No Known Immunizations SOCIAL HISTORY Never Assessed REASON FOR VISIT Lab (walk-in) PLAN OF CARE Activity Details Pending Test CMP Pending Test CBC w/MANUAL DIFF Pending Test DIFFERENTIAL, MANUAL VITAL SIGNS MEDICATIONS Unknown Medications RESULTS No Results PROCEDURES Procedure Date Ordered Result Body Site LAB NOT BILLED BY [facility] Nov 17, 2017 VENIPUNCT, ROUTINE* Nov 17, 2017 INSTRUCTIONS MEDICATIONS ADMINISTERED No Known Medications [...]
--- OUTSIDE RECORDS SUMMARY | 2018-02-04 14:07 | XMS REPORT ---
Author Author ALENA ÁLVAREZ [facility] Address [address] [place] [address] Care Team Providers Care Hand Booked Folder And Stitcher Name Role Phone ALENA ÁLVAREZ Unavailable PROBLEMS Type Condition ICD9-CM Code TQD16-BG Code Onset Dates Condition Status SNOMED Code Problem Hyperlipidemia E78.5 Active 37362353 Problem Sleep apnea, obstructive G47.33 Active 34734373 Problem Primary insomnia F51.01 Active 5693047 Problem Chronic pain G89.29 Active 74647295 Problem Morbid (severe) obesity due to excess calories E66.01 Active 077081147 Problem Myocarditis, unspecified chronicity, 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 Active 05856615 Problem Other male erectile dysfunction N52.8 Active 835349512 Problem 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 Active 156837403 Problem Body mass index (BMI) of 40.0-44.9 in adult Z68.41 Active 338382352 Problem Supraventricular tachycardia I47.1 Active 4388394 Problem Insomnia disorder with non-sleep disorder mental comorbidity G47.00 Active 47215247 Problem Chronic tension headaches G44.229 Active 525726873 Problem HTN (hypertension) I10 Active 08546705 Problem 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 Active 177139673 Problem Chronic pain syndrome G89.4 Active 545980796 Problem Migraine without aura and without status migrainosus, not intractable G43.009 Active 172377429 Problem Sarcoidosis D86.9 Active 49389859 Problem Problems related to release from shelter Z65.2 Active 222917127394514 Problem 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 Active 17644855 Problem Mitral valve prolapse I34.1 Active 184744319 Problem Anxiety F41.9 Active 76038837 Problem Major depressive disorder, recurrent, moderate F33.1 Active 63679233 Problem Environmental allergies Z91.09 Active 370968276 Problem Arrhythmia as indication for cardiac pacemaker replacement I49.9 Active 62202504 Problem CAD (coronary artery disease) I25.10 Active 26348738 Problem Post-traumatic stress disorder, chronic F43.12 Active 654874258 ALLERGIES No Information ENCOUNTERS Encounter Location Date Diagnosis [facility] [address] [address]- [address] Dec, [facility] [id number] [place] [address] 58249- 0343 16 Nov, 2017 [facility] [address] 67275- 6411 10 Nov, 2017 Encounter for long-term (current) use of other medications Z79.899 [facility] [address] 98902- 3162 02 Nov, 2017 [facility] [address] 54825- 9757 01 Nov, 2017 Left leg pain M79.605 [facility] [address] [id number] 28 Oct, 2017 Dental examination Z01.20 [facility] [id number] [place] [address] 21689- 4719 25 Oct, 2017 Insomnia disorder with non-sleep disorder mental comorbidity G47.00 [facility] [id number] [place] [address] 17697- 0162 25 Oct, 2017 Post-traumatic stress disorder, chronic F43.12 ; Insomnia disorder with non-sleep disorder mental comorbidity G47.00 and BMI 40.0-44.9, adult Z68.41 [facility] [id number] [place] [address] 86085- 1482 19 Oct, 2017 [facility] [address] 66[address] -1327 18 Oct, 2017 Insect bite (nonvenomous), left lower leg, initial encounter S80.862A ; Bitten or stung by nonvenomous insect and other nonvenomous arthropods, initial encounter W57.XXXA and BMI 40.0-44.9, adult Z68.41 [facility] [id number] [place] [address] 36643- 9516 06 Oct, 2017 Left leg pain M79.605 [facility] [id number] [place] [address] 47254- 0958 04 Oct, 2017 Post-traumatic stress disorder, unspecified F43.10 ; Major depressive disorder, recurrent, moderate F33.1 and Problems related to release from shelter Z65.2 [facility] [address] [address]- 7904 2017 Arrhythmia as indication for cardiac pacemaker replacement I49.9 [facility] [address] 42361- 0888 Sep, [facility] [id number] [place] [address] 58599- 1597 20 Sep, 2017 HTN (hypertension) I10 [facility] [facility] [address] 91454- 6444 17 Sep, 2017 [facility] [id number] [place] [address] 11014- 7426 16 Sep, 2017 Body mass index (BMI) of 40.0-44.9 in adult Z68.41 ; Chronic pain G89.29 and Supraventricular tachycardia I47.1 [facility] [id number] [place] [address] 72947- 6637 15 Sep, 2017 [facility] [id number] [place] [address] 18341- 3314 Sep, Sarcoidosis D86.9 [facility] [id number] [place] [address] 80013- 8809 Sep, Sarcoidosis D86.9 [facility] [address] 88603- 1802 Sep, [facility] [id number] [place] [address] 69056- 4919 Sep, [facility] [address] [place] [address]- 1213 Sep, [facility] [address] [address] 9985 Sep, [facility] [address] [place] [address] 10238- 3657 Sep, Left leg pain M79.605 [facility] [address] [place] [address] 65112- 5222 Sep, HTN (hypertension) I10 [facility] [address] [place] [address] 77347- 1500 Sep, [facility] [address] [place] [address] 07298- 0955 Sep, Post-traumatic stress disorder, unspecified F43.10 ; Major depressive disorder, recurrent, moderate F33.1 and Problems related to release from shelter Z65.2 [facility] [address] [place] [address] 60313- 3484 Sep, [facility] [address] [place] [address] 78789- 5781 Aug, [facility] [address] [place] [address] 17531- 4761 Aug, Sarcoidosis D86.9 [facility] [address] [address] 5029 Aug, Sarcoidosis D86.9 [facility] [address] [address]- 6795 Aug, HTN (hypertension) I10 [facility] [address] [place] [address] 96927- 1766 Aug, Post-traumatic stress disorder, unspecified F43.10 ; Major depressive disorder, recurrent, moderate F33.1 and Problems related to release from shelter Z65.2 [facility] [address] [place] [address] 36537- 6033 Aug, [facility] [id number] [place] [address] 80670- 2122 09 Aug, 2017 Left leg pain M79.605 [facility] [id number] [place] [address] 09794- 8170 Jul, Post-traumatic stress disorder, chronic F43.12 ; Anxiety F41.9 ; Problems related to release from shelter Z65.2 and BMI 40.0-44.9, adult Z68.41 [facility] [address] 51637- 8903 20 Jul, 2017 HTN (hypertension) I10 ; Body mass index (BMI) of 40.0-44.9 in adult Z68.41 ; Acute swimmer''s ear of both sides H60.333 and Chronic pain G89.29 [facility] [address] 92133- 4921 19 Jul, 2017 Glaucoma H40.9 [facility] [address] 18175- 4342 14 Jul, 2017 [facility] [address] 27556- 0126 13 Jul, 2017 Sarcoidosis D86.9 [facility] [address] 22537- 9800 12 Jul, 2017 Left leg pain M79.605 [facility] [address] 04978- 3493 12 Jul, 2017 Sarcoidosis D86.9 [facility] [id number] [place] [address] 73617- 5210 Jul, Post-traumatic stress disorder, unspecified F43.10 ; Major depressive disorder, recurrent, moderate F33.1 and Problems related to release from shelter Z65.2 [facility] [id number] [place] [address] 12202- 5404 June, [facility] [address] 17029 -7100 June, Sore throat J02.9 and BMI 40.0-44.9, adult Z68.41 [facility] [id number] [place] [address] 02690- 4266 June, [facility] [id number] [place] [address] 52433- 5647 June, [facility] [id number] [place] [address] 42938- 4468 June, [facility] [id number] [place] [address] 25329- 7705 June, Left leg pain M79.605 [facility] [id number] [place] [address] 66942- 2277 June, Sarcoidosis D86.9 [facility] [id number] [place] [address] 51003- 7892 June, [facility] [id number] [place] [address] 83622- 8691 June, [facility] [id number] [place] [address] 48205- 0175 June, Left leg pain M79.605 [facility] [id number] [address]- 6030 May, [facility] [id number] [place] [address] 02676- 7607 May, [facility] [address] [place] [address] 14893- 7073 May, [facility] [id number] [place] [address] 99107- 1861 May, Left leg pain M79.605 [facility] [address] [address]- 1875 May, Post-traumatic stress disorder, unspecified F43.10 ; Major depressive disorder, recurrent, moderate F33.1 and Problems related to release from shelter Z65.2 [facility] [id number] [place] [address] 82620- 7010 May, Chronic pain G89.29 ; Anxiety F41.9 ; Chest pain, unspecified type R07.9 and BMI 40.0-44.9, adult Z68.41 [facility] [address] 42664- 4700 30 Apr, 2017 [facility] [address] 80022- 5738 29 Apr, 2017 Left leg pain M79.605 [facility] [address] 76443- 4170 27 Apr, 2017 Post-traumatic stress disorder, unspecified F43.10 ; Problems related to release from shelter Z65.2 ; Anxiety F41.9 and BMI 40.0-44.9 , adult Z68.41 [facility] [id number] [place] [address] 02698- 0820 Apr, [facility] [id number] [place] [address] 71746- 6004 Apr, Left leg pain M79.605 [facility] [id number] [place] [address] 13812- 9840 Apr, Post-traumatic stress disorder, unspecified F43.10 ; Major depressive disorder, recurrent, moderate F33.1 and Problems related to release from shelter Z65.2 [facility] [id number] [place] [address] 73079- 5070 Apr, [facility] [facility] [address] 88896- 2488 Apr, Chronic pain G89.29 ; 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 ; Morbid (severe) obesity due to excess calories E66.01 ; Anxiety F41.9 and BMI 40.0-44.9, adult Z68.41 [facility] [address] 33130 -9841 Apr, Sore throat J02.9 and BMI 40.0-44.9, adult Z68.41 [facility] [facility] [address] 57897- 9972 Apr, Left leg pain M79.605 [facility] [address] [id number] Mar, Dental examination Z01.20 [facility] [address] 44359- 5773 Mar, [facility] [address] 17625 -7926 Mar, Cough R05 ; Viral gastroenteritis A08.4 and BMI 40.0-44.9, adult Z68.41 [facility] [address] 08497- 7750 Mar, Left leg pain M79.605 [facility] [address] 98671- 5038 Mar, Post-traumatic stress disorder, unspecified F43.10 ; Major depressive disorder, recurrent, moderate F33.1 and Problems related to release from shelter Z65.2 [facility] [address] 33949- 2838 Feb, Left leg pain M79.605 [facility] [address] 02229- 7066 Feb, [facility] [address] 22815- 9531 Feb, BMI 40.0-44.9, adult Z68.41 ; Chronic pain syndrome G89.4 ; Migraine without aura and without status migrainosus, not intractable G43.009 ; Mitral valve prolapse I34.1 and 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 [facility] [address] 72905- 3151 Feb, Post-traumatic stress disorder, chronic F43.12 ; Anxiety F41.9 ; Problems related to release from shelter Z65.2 and BMI 40.0-44.9, adult Z68.41 [facility] [address] [place] [address] 92708- 8901 Feb, Post-traumatic stress disorder, unspecified F43.10 ; Major depressive disorder, recurrent, moderate F33.1 and Problems related to release from shelter Z65.2 [facility] [id number] [place] [address] 55254- 0761 Feb, Left leg pain M79.605 [facility] [id number] [place] [address] 13918- 5216 Jan, Post-traumatic stress disorder, unspecified F43.10 ; Major depressive disorder, recurrent, moderate F33.1 and Problems related to release from shelter Z65.2 [facility] [id number] [place] [address] 91418- 1198 Jan, [facility] [id number] [place] [address] 23301- 2375 Jan, [facility] [id number] [place] [address] 31045- 8965 Jan, Anxiety F41.9 [facility] [id number] [place] [address] 12269- 1148 Jan, Left leg pain M79.605 [facility] [id number] [place] [address] 70855- 4811 Dec, Left leg pain M79.605 [facility] [id number] [place] [address] 20950- 5610 Dec, [facility] [id number] [place] [address] 75328- 9110 Dec, Post-traumatic stress disorder, unspecified F43.10 ; Major depressive disorder, recurrent, moderate F33.1 and Problems related to release from shelter Z65.2 [facility] [id number] [place] [address] 12203- 9966 31 Nov, 2016 Chronic pain G89.29 and Anxiety F41.9 [facility] [address] [place] [address] 523413- 3565 24 Nov, 2016 Chronic pain G89.29 and Anxiety F41.9 [facility] [address] [place] 523419- 2291 16 Nov, 2016 Post-traumatic stress disorder, unspecified F43.10 ; Major depressive disorder, recurrent, moderate F33.1 and Problems related to release from shelter Z65.2 [facility] [facility] [address] 86231- 2498 09 Nov, 2016 Other abnormal findings in specimens from other organs, systems and tissues R89.8 ; Other male erectile dysfunction N52.8 ; Body mass index (BMI) of 40.0-44.9 in adult Z68.41 and Morbid (severe) obesity due to excess calories E66.01 [facility] [facility] [address] 26186- 3450 02 Nov, 2016 Post-traumatic stress disorder, unspecified F43.10 ; Major depressive disorder, recurrent, moderate F33.1 and Problems related to release from shelter Z65.2 [facility] [address] [id number] Oct, Dental examination Z01.20 [facility] [id number] [place] [address] 88126- 8349 Oct, [facility] [facility] [address] 40505- 6606 Oct, Encounter for immunization Z23 [facility] [facility] [address] 70217- 1141 26 Oct, 2016 Chronic pain G89.29 ; Anxiety F41.9 ; Arrhythmia as indication for cardiac pacemaker replacement I49.9 and Glaucoma H40.[address] [place] [address]- 9577 Oct, Anxiety F41.9 ; Post-traumatic stress disorder, chronic F43.12 and Problems related to release from shelter Z65.2 [facility] [address] [facility] [address]- 5520 07 Oct, 2016 Post-traumatic stress disorder, unspecified F43.10 ; Major depressive disorder, recurrent, moderate F33.1 and Problems related to release from shelter Z65.2 [facility] [facility] [address] 60729- 9443 Sep, Chronic pain G89.29 and Anxiety F41.9 [facility] [facility] [address] 70284- 1192 Sep, Post-traumatic stress disorder, unspecified F43.10 ; Major depressive disorder, recurrent, moderate F33.1 and Problems related to release from shelter Z65.2 [facility] [id number] [place] [address] 69693- 9855 Sep, Post-traumatic stress disorder, unspecified F43.10 ; Major depressive disorder, recurrent, moderate F33.1 and Problems related to release from shelter Z65.2 [facility] [address] [place] [address] 43729- 0531 Sep, Chronic pain G89.29 [facility] [address] [place] [address] 69078- 1611 Aug, Dental caries, unspecified K02.9 [facility] [address] [place] [address] 28734- 9010 Aug, Sleep apnea, obstructive G47.33 ; Obesity E66.9 ; Chronic pain G89.29 ; HTN (hypertension) I10 ; Major depressive disorder, recurrent, moderate F33.1 ; Anxiety F41.9 ; Chronic tension headaches G44.229 ; Mitral valve prolapse I34.1 ; Arrhythmia as indication for cardiac pacemaker replacement I49.9 ; Dental caries, unspecified K02.9 ; Primary insomnia F51.01 and Hyperlipidemia E78.5 [facility] [address] [place] [address] 80503- 5261 Aug, Post-traumatic stress disorder, unspecified F43.10 ; Major depressive disorder, recurrent, moderate F33.1 and Problems related to release from shelter Z65.2 [facility] [id number] [place] [address] 47983- 1602 Aug, Dental examination Z01.20 [facility] [id number] [place] [address] [id number] 13 Aug, 2016 Dental examination Z01.20 [facility] [id number] [place] [address] 95994- 1773 06 Aug, 2016 Post-traumatic stress disorder, unspecified F43.10 ; Major depressive disorder, recurrent, moderate F33.1 and Problems related to release from shelter Z65.2 [facility] [id number] [place] [address] 85939- 8733 Aug, Chronic pain G89.29 and Primary insomnia F51.01 [facility] [id number] [place] [address] 49816- 7369 Jul, [facility] [id number] [place] [address] 10183- 3998 Jul, [facility] [id number] [place] [address] 82285- 2734 Jul, Nausea R11.0 [facility] [id number] [place] [address] 40266- 0974 Jul, Arrhythmia as indication for cardiac pacemaker replacement I49.9 [facility] [id number] [place] [address] 66072- 6356 Jul, Post-traumatic stress disorder, unspecified F43.10 ; Major depressive disorder, recurrent, moderate F33.1 and Problems related to release from shelter Z65.2 [facility] [id number] [place] [address] 26217- 8593 Jul, Anxiety F41.9 [facility] [address] [place] [address] 18503- 2897 08 Jul, 2016 Chronic pain G89.29 [facility] [address] [place] [address] 76230- 9819 Jul, Sleep apnea, obstructive G47.33 ; Hyperlipidemia E78.5 ; Chronic pain G89.29 ; 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 ; Major depressive disorder, recurrent, moderate F33.1 ; Anxiety F41.9 ; Mitral valve prolapse I34.1 ; Arrhythmia as indication for cardiac pacemaker replacement I49.9 ; Primary insomnia F51.01 ; Bilateral headaches R51 and Environmental allergies Z91.[address] 21716- 0329 Jul, Post-traumatic stress disorder, unspecified F43.10 ; Major depressive disorder, recurrent, moderate F33.1 and Problems related to release from shelter Z65.2 [place] [id number] [place] [address] 25371- 1950 June, Post-traumatic stress disorder, chronic F43.12 ; Anxiety F41.9 ; Problems related to release from shelter Z65.2 ; Sleep apnea, obstructive G47.33 and Primary insomnia F51.01 [facility] [id number] [place] [address] 97954- 3068 June, [place] [id number] [place] [address] 38771- 5364 June, [facility] [id number] [place] [address] 57116- 0586 June, [facility] [id number] [place] [address] 81877- 4970 June, Chronic pain G89.29 [facility] [id number] [place] [address] 76111- 7427 June, Chronic pain G89.29 [facility] [id number] [place] [address] 11833- 5103 June, Lipoma of left lower extremity D17.24 ; Open wound T14.8 and Swelling of left lower extremity M79.89 [facility] [id number] [place] [address] 50163- 3209 June, Post-traumatic stress disorder, unspecified F43.10 ; Major depressive disorder, recurrent, moderate F33.1 and Problems related to release from shelter Z65.2 [facility] [address] 03891- 4462 May, Lipoma of left lower extremity D17.24 ; Major depressive disorder, recurrent, moderate F33.1 ; Sleep apnea, obstructive G47.33 ; Hyperlipidemia E78.5 ; Obesity E66.9 ; HTN (hypertension) I10 ; Glaucoma H40.9 ; CAD (coronary artery disease) I25.10 ; Chronic tension headaches G44.229 ; Chronic pain G89.29 ; Anxiety F41.9 ; Nausea R11.0 and Primary insomnia F51.01 [facility] [facility] [id number] [place] [address] 04649- 6366 May, [facility] [facility] [address] 42618- 2417 May, Chronic pain G89.29 [facility] [facility] [id number] [place] [address] 95750- 5454 May, [facility] [id number] [place] [address] 93444- 7603 Apr, Post-traumatic stress disorder, unspecified F43.10 ; Major depressive disorder, recurrent, moderate F33.1 and Problems related to release from shelter Z65.2 [facility] [id number] [place] [address] 96227- 5781 Apr, Primary insomnia F51.01 ; Post-traumatic stress disorder, chronic F43.12 and Problems related to release from shelter Z65.2 [place] [id number] [place] [address] 64013- 3373 Apr, Post-traumatic stress disorder, unspecified F43.10 ; Major depressive disorder, recurrent, moderate F33.1 and Problems related to release from shelter Z65.2 [facility] [id number] [place] [address] 66402- 3908 16 Apr, 2016 [facility] [id number] [place] [address] 58781- 4300 16 Apr, 2016 Sleep apnea, obstructive G47.33 ; Chronic pain G89.29 ; HTN (hypertension) I10 ; Mitral valve prolapse I34.1 ; Shoulder pain, left M25.512 ; Arrhythmia as indication for cardiac pacemaker replacement I49.9 ; Glaucoma H40.9 ; Bilateral headaches R51 ; Environmental allergies Z91.09 ; Primary insomnia F51.01 and Nausea R11.0 [facility] [id number] [place] [address] [phone]- [phone] 15 Apr, 2016 [facility] [id number] [place] [address] [phone]- [phone] Apr, [facility] [id number] [place] [address] [phone]- [phone] Apr, Post-traumatic stress disorder, unspecified F43.10 ; Major depressive disorder, recurrent, moderate F33.1 and Problems related to release from shelter Z65.2 [place] [id number] [place] [address] [phone] Apr, HTN (hypertension) I10 [facility] [id number] [place] [address] [phone]- [phone] Apr, HTN (hypertension) I10 [facility] [place] [address] [address] [id number] [place] [address] 16279- 7614 14 Mar, 2016 Chronic pain G89.29 ; Primary insomnia F51.01 and Problems related to release from shelter Z65.2 [place] [id number] [place] [address] 15709- 0110 07 Mar, 2016 Post-traumatic stress disorder, unspecified F43.10 ; Major depressive disorder, recurrent, moderate F33.1 and Problems related to release from shelter Z65.2 [place] [id number] [place] [address] 67238- 4506 Feb, Post-traumatic stress disorder, unspecified F43.10 ; Major depressive disorder, recurrent, moderate F33.1 and Problems related to release from shelter Z65.2 [facility] [id number] [place] [address] 29088- 1369 Feb, Chronic tension headaches G44.229 [facility] [place] [address] [id number] [place] [address] 69575- 5723 Feb, Sleep apnea, obstructive G47.33 ; Obesity E66.9 ; Hyperlipidemia E78.5 ; Glaucoma H40.9 ; Chronic pain G89.29 ; HTN (hypertension ) I10 ; 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 ; 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 ; Chronic tension headaches G44.229 ; Cough R05 ; CAD (coronary artery disease) I25.10 ; Problems related to release from shelter Z65.2 ; Arrhythmia as indication for cardiac pacemaker replacement I49.9 and Primary insomnia F51.01 [facility] [id number] [place] [address] 95047- 5114 Feb, Post-traumatic stress disorder, unspecified F43.10 and Chronic pain G89.29 [address] [place] [address] 72629- 3355 Feb, [facility] [id number] [place] [address] [id number] Feb, Dental caries K02.9 [place] [id number] [place] [address] 46518- 7911 Feb, [place] [id number] [place] [address] 07865- 2217 Feb, Post-traumatic stress disorder, unspecified F43.10 ; Major depressive disorder, recurrent, moderate F33.1 and Problems related to release from shelter Z65.2 [facility] [id number] [place] [address] 08997- 1992 Jan, Sleep apnea, obstructive G47.33 and Chronic pain G89.29 [facility] [address] [id number] [place] [address] 70200- 7836 Jan, [facility] [place] [address] [id number] [place] [address] 09980- 5526 Jan, Dental examination Z01.20 [place] [address] 76781- 9269 Jan, [facility] [address] [id number] [place] [address] 80885- 7516 Jan, [place] [address] 91829- 5087 Dec, Post-traumatic stress disorder, unspecified F43.10 ; Major depressive disorder, recurrent, moderate F33.1 and Problems related to release from shelter Z65.2 [place] [id number] [place] [address] 88172- 1367 Dec, Encounter for immunization Z23 ; Problems related to release from shelter Z65.2 ; Sleep apnea, obstructive G47.33 and Post-traumatic stress disorder, chronic F43.12 [place] [id number] [place] [address] 19204- 4897 18 Dec, 2015 Sleep apnea, obstructive G47.33 ; Hyperlipidemia E78.5 ; Chronic pain G89.29 ; Glaucoma H40.9 ; HTN (hypertension) I10 ; Post-traumatic stress disorder, unspecified F43.10 ; Anxiety F41.9 ; Chronic tension headaches G44.229 ; Mitral valve prolapse I34.1 and CAD (coronary artery disease) I25.10 [place] [id number] [place] [address] 90744- 3662 15 Dec, 2015 Post-traumatic stress disorder, unspecified F43.10 ; Major depressive disorder, recurrent, moderate F33.1 and Problems related to release from shelter Z65.2 [place] [id number] [place] [address] 09299- 8734 Nov, Chronic pain G89.29 [place] [address] [address] 1511 Nov, Post-traumatic stress disorder, unspecified F43.10 ; Major depressive disorder, recurrent, moderate F33.1 and Problems related to release from shelter Z65.2 [place] [address] [address]- 4533 Oct, [facility] [id number] [place] [address] 42278- 7861 Oct, [facility] [id number] [place] [address] 61309- 0834 Oct, Post-traumatic stress disorder, unspecified F43.10 ; Major depressive disorder, recurrent, moderate F33.1 and Problems related to release from shelter Z65.2 [place] [id number] [place] [address] 52699- 9661 08 Oct, 2015 [place] [id number] [place] [address] 09665- 1174 07 Oct, 2015 Environmental allergies Z91.09 ; Cough R05 and 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 [facility] [address] [address]- 6336 Sep, [place] [address] [place] [address] 37128- 7045 Sep, Post-traumatic stress disorder, unspecified F43.10 ; Major depressive disorder, recurrent, moderate F33.1 and Problems related to release from shelter Z65.2 [place] [address] [place] [address] 35372- 6438 Sep, Chronic pain G89.29 [facility] [id number] [place] [address] 51767- 5363 Sep, Pain in left shoulder M25.512 ; Pain in right shoulder M25.511 and Other chronic pain G89.29 [place] [id number] [address] 1606 Sep, [facility] [address] [address]- 5834 Sep, [facility] [address] [address] 5460 Sep, [facility] [address] [place] [address] [id number] Aug, Dental examination Z01.20 [facility] [id number] [place] [address] 52844- 5649 Aug, Post-traumatic stress disorder, unspecified F43.10 ; Open- angle glaucoma of both 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 and Problems related to release from shelter Z65.2 [place] [id number] [place] [address] 68686- 8910 Aug, [facility] [id number] [place] [address] 98371- 8577 Aug, Sleep apnea, obstructive G47.33 ; Obesity E66.9 ; Hyperlipidemia E78.5 ; Bilateral headaches R51 ; HTN (hypertension) I10 ; Post- traumatic stress disorder, unspecified F43.10 ; Anxiety F41.9 ; Neuropathy G62.9 ; Glaucoma H40.9 and Chronic pain G89.29 [facility] [address] [id number] Aug, Encounter for dental examination Z01.20 [facility] [id number] [place] [address] 48314- 7089 Aug, Post-traumatic stress disorder, unspecified F43.10 ; Major depressive disorder, recurrent, moderate F33.1 and Problems related to release from shelter Z65.2 [facility] [address] [address] 0144 Aug, [facility] [address] [address]- 0041 Jul, [place] [address] [address]- 6704 Jul, Post-traumatic stress disorder, unspecified F43.10 and Major depressive disorder, recurrent, moderate F33.1 [facility] [address] [address]- 5856 Jul, [facility] [address] [address]- 2495 Jul, [facility] [id number] [place] [address] 87428- 1927 Jul, Chronic pain G89.29 [facility] [id number] [place] [address] 84309- 5166 June, Post-traumatic stress disorder, unspecified F43.10 and Major depressive disorder, recurrent, moderate F33.1 [facility] [address] [address]- 7630 June, [facility] [address] [address]- 2135 June, Chronic pain G89.29 [facility] [id number] [place] [address] 37628- 0783 June, Post-traumatic stress disorder, unspecified F43.10 and Major depressive disorder, recurrent, moderate F33.1 [facility] [address] [address]- 5701 May, Post-traumatic stress disorder, unspecified F43.10 and Major depressive disorder, recurrent, moderate F33.1 [facility] [address] [address]- 7850 May, [facility] [address] [place] [address] 44400- 4426 May, [facility] [address] [address]- 7405 May, [facility] [id number] [place] [address] 22020- 5022 Apr, [facility] [id number] [place] [address] 43476- 8541 Apr, Post-traumatic stress disorder, unspecified F43.10 and Sleep apnea, obstructive G47.33 [facility] [id number] [place] [address] 20536- 6335 Apr, [facility] [address] 56456- 8555 Apr, Shoulder pain, left M25.512 [facility] [id number] [place] [address] 80015- 6978 Apr, Post-traumatic stress disorder, unspecified F43.10 and Major depressive disorder, recurrent, moderate F33.1 [place] [address] 51172- 2245 Apr, [facility] [address] 44927- 2863 Apr, [facility] [id number] [place] [address] 13024- 2400 08 Apr, 2015 [facility] [id number] [place] [address] 21581- 7985 07 Apr, 2015 Left shoulder pain M25.512 [facility] [id number] [place] [address] 75077- 1512 Mar, [facility] [id number] [place] [address] 73230- 1567 Mar, [facility] [id number] [place] [address] 63417- 0456 18 Mar, 2015 [facility] [id number] [place] [address] 88691- 7139 12 Mar, 2015 Sleep apnea, obstructive G47.33 ; Obesity E66.9 ; Chronic pain G89.29 ; Hyperlipidemia E78.5 ; HTN (hypertension) I10 ; 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 ; Major depressive disorder, recurrent, moderate F33.1 and Anxiety F41.9 [facility] [id number] [place] [address] 68398- 8800 Mar, [facility] [id number] [place] [address] 89601- 7693 Mar, Post-traumatic stress disorder, unspecified F43.10 and Major depressive disorder, recurrent, moderate F33.1 [facility] [id number] [place] [address] 25011- 4387 08 Mar, 2015 [place] [address] 21310- 4679 04 Mar, 2015 HTN (hypertension) I10 ; 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 ; Obesity E66.9 ; Hyperlipidemia E78.5 ; Glaucoma H40.9 ; Chronic pain G89.29 and CAD (coronary artery disease) I25.10 [facility] [id number] [place] [address] 66689- 6709 Feb, [facility] [place] [id number] [place] [address] 56937- 9365 Feb, Post-traumatic stress disorder, unspecified F43.10 ; Obesity E66.9 ; Sleep apnea, obstructive G47.33 and 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 [facility] [id number] [place] [address] 97976- 8029 Feb, Post-traumatic stress disorder, unspecified F43.10 and Major depressive disorder, recurrent, moderate F33.1 [place] [address] [place] [address] 84651- 5521 Feb, [place] [id number] [place] [address] 11025- 5971 Feb, [facility] [id number] [place] [address] 97095- 7956 Feb, HTN (hypertension) I10 ; Post-traumatic stress disorder, unspecified F43.10 ; Blindness and low vision H54.10 ; Obesity E66.9 ; Hyperlipidemia E78.5 ; Chronic pain G89.29 ; Glaucoma H40.9 ; Mitral valve prolapse I34.1 and Bilateral headaches R51 [facility] [id number] [place] [address] 89701- 6079 Feb, [facility] [address] 200186- 9458 Feb, Post-traumatic stress disorder, unspecified F43.10 and Major depressive disorder, recurrent, moderate F33.[address] 578697- 2492 Feb, [facility] [address] 07886- 4595 Feb, [facility] [address] 29162- 4734 Jan, [facility] [address] 95742- 8316 Jan, [address] 15939- 7244 Jan, Obesity E66.9 ; HTN (hypertension) I10 ; Blindness and low vision H54.10 ; Major depressive disorder, recurrent, moderate F33.1 ; Glaucoma H40.9 ; Hyperlipidemia E78.5 ; Sleep apnea, obstructive G47.33 ; Chronic pain G89.29 ; Anxiety F41.9 ; Chronic tension headaches G44.229 and Cough R05 [facility] [id number] [place] [address] 04572- 4520 Jan, [address] 74239- 5388 Jan, [address] 63480- 3014 Jan, Post-traumatic stress disorder, unspecified F43.10 ; Obesity E66.9 ; Sleep apnea, obstructive G47.33 and 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 [place] [id number] [facility] [address] 4045 Jan, [place] [address] [place] [address]- 9549 Jan, Post-traumatic stress disorder, unspecified F43.10 and Major depressive disorder, recurrent, moderate F33.1 [place] [address]59820- 7119 Dec, [place] [address] [place] [id number]- 0777 Dec, Sleep apnea, obstructive G47.33 ; Obesity E66.9 ; Hyperlipidemia E78.5 ; Glaucoma H40.9 ; Chronic pain G89.29 ; HTN (hypertension ) I10 ; Blindness and low vision H54.10 ; Anxiety F41.9 and CAD (coronary artery disease) I25.10 [place] [address] 28738- 3953 Nov, [address] 44828- 1667 Nov, [address] 66468- 1130 Nov, [place] [id number] [place] [address] 98421- 1710 Nov, [place] [address] 87690- 5345 Nov, [address] 96902- 2201 Nov, Encounter for immunization Z23 ; Sleep apnea, obstructive G47.33 ; Obesity E66.9 ; Hyperlipidemia E78.5 ; Glaucoma H40.9 ; Chronic pain G89.29 ; Anxiety F41.9 ; Chronic tension headaches G44.229 and HTN (hypertension ) I10 [address] [place] [address]- 0397 19 Nov, 2014 [facility] [id number] [place] [address] 10581- 7797 14 Nov, 2014 [facility] [id number] [place] [address] 28898- 1015 06 Nov, 2014 Dizziness R42 [facility] [id number] [place] [address] 93038- 0770 Nov, [facility] [id number] [place] [address] 62760- 6586 29 Oct, 2014 [facility] [id number] [place] [address] 11512- 8242 28 Oct, 2014 [facility] [id number] [place] [address] 70183- 8752 Oct, [facility] [id number] [place] [address] 92273- 2690 Oct, [facility] [id number] [place] [address] 38043- 4091 17 Oct, 2014 Dizziness 780.4 ; Essential hypertension 401.9 ; Obesity 278.00 ; Hyperlipidemia 272.4 ; Chronic pain 338.29 ; Glaucoma 365.9 and Anxiety 300.00 [facility] [address] [place] [address] 88662- 5425 02 Oct, 2014 Essential hypertension 401.9 ; Hyperlipidemia 272.4 ; Glaucoma 365.9 ; Obesity 278.00 ; Chronic pain 338.29 and Allergy to insects V15.06 [facility] [address] [address]- 0918 Sep, [facility] [id number] [place] [address] 04897- 1421 Sep, [facility] [id number] [place] [address] 91507- 7490 Sep, [facility] [id number] [place] [address] 39703- 3090 Sep, [facility] [address] [facility] [id number] [place] [address]- 5842 Aug, Essential hypertension 401.9 ; Obesity 278.00 ; Hyperlipidemia 272.4 ; Glaucoma 365.9 ; Lipoma 214.9 ; Mitral valve prolapse 424.0 ; Angina at rest 413.9 ; Lymphedema 457.1 and Chronic pain 338.29 IMMUNIZATIONS No Known Immunizations SOCIAL HISTORY Never Assessed REASON FOR VISIT Requesting letter PLAN OF CARE VITAL SIGNS MEDICATIONS Unknown [...]
--- OUTSIDE RECORDS SUMMARY | 2018-02-04 14:07 | XMS REPORT ---
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 Name Role Phone ALENA ÁLVAREZ Unavailable PROBLEMS Type Condition ICD9-CM Code YYM17-HJ Code Onset Dates Condition Status SNOMED Code Problem Hyperlipidemia E78.5 Active 22716205 Problem Sleep apnea, obstructive G47.33 Active 44977950 Problem Primary insomnia F51.01 Active 0584103 Problem Chronic pain G89.29 Active 56616304 Problem Morbid (severe) obesity due to excess calories E66.01 Active 814005265 Problem Myocarditis, unspecified chronicity, 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 Active 62297521 Problem Other male erectile dysfunction N52.8 Active 631374329 Problem 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 Active 996260611 Problem Body mass index (BMI) of 40.0-44.9 in adult Z68.41 Active 768769707 Problem Supraventricular tachycardia I47.1 Active 9922674 Problem Insomnia disorder with non-sleep disorder mental comorbidity G47.00 Active 01021243 Problem Chronic tension headaches G44.229 Active 277514034 Problem HTN (hypertension) I10 Active 07177133 Problem Blindness and low vision H54.10 Active 114252026 Problem Chronic pain syndrome G89.4 Active 880585942 Problem Migraine without aura and without status migrainosus, not intractable G43.009 Active 006747813 Problem Sarcoidosis D86.9 Active 60019222 Problem Problems related to release from snf Z65.2 Active 150238575585024 Problem 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 Active 96276326 Problem Mitral valve prolapse I34.1 Active 523696562 Problem Anxiety F41.9 Active 01942883 Problem Major depressive disorder, recurrent, moderate F33.1 Active 52677523 Problem Environmental allergies Z91.09 Active 217961753 Problem Arrhythmia as indication for cardiac pacemaker replacement I49.9 Active 54473528 Problem CAD (coronary artery disease) I25.10 Active 31612539 Problem Post-traumatic stress disorder, chronic F43.12 Active [id number] ALLERGIES No Information ENCOUNTERS Encounter Location Date Diagnosis [facility] [id number] [place] [address] 53355- 3677 Dec, [facility] [id number] [place] [address] 17540- 2178 16 Nov, 2017 [facility] [address] 75868- 6433 Nov, [facility] [id number] [place] [address] 75865- 3090 Nov, Left leg pain M79.605 [facility] [id number] [place] [address] [id number] 28 Oct, 2017 Dental examination Z01.20 [facility] [id number] [place] [address] 51695- 3015 Oct, Insomnia disorder with non-sleep disorder mental comorbidity G47.00 [facility] [id number] [place] [address] 79129- 1642 25 Oct, 2017 Post-traumatic stress disorder, chronic F43.12 ; Insomnia disorder with non-sleep disorder mental comorbidity G47.00 and BMI 40.0-44.9, adult Z68.41 [facility] [id number] [place] [address] 80372- 3849 Oct, [facility] [id number] [place] [address] 36242 -7594 18 Oct, 2017 Insect bite (nonvenomous), left lower leg, initial encounter S80.862A ; Bitten or stung by nonvenomous insect and other nonvenomous arthropods, initial encounter W57.XXXA and BMI 40.0-44.9, adult Z68.41 [facility] [address] [place] [address] 94074- 6278 06 Oct, 2017 Left leg pain M79.605 [facility] [id number] [place] [address] 33858- 9520 04 Oct, 2017 Post-traumatic stress disorder, unspecified F43.10 ; Major depressive disorder, recurrent, moderate F33.1 and Problems related to release from snf Z65.2 [facility] [id number] [place] [address] 95116- 2784 2017 Arrhythmia as indication for cardiac pacemaker replacement I49.9 [facility] [address] 81041- 7428 Sep, [facility] [address] 87548- 9064 Sep, HTN (hypertension) I10 [facility] [id number] [place] [address] 40582- 2316 Sep, [facility] [id number] [place] [address] 23793- 1670 16 Sep, 2017 Body mass index (BMI) of 40.0-44.9 in adult Z68.41 ; Chronic pain G89.29 and Supraventricular tachycardia I47.1 [facility] [id number] [place] [address] 41101- 8298 Sep, [facility] [id number] [place] [address] 48591- 7866 Sep, Sarcoidosis D86.9 [facility] [id number] [place] [address] 93674- 1700 Sep, Sarcoidosis D86.9 [facility] [id number] [place] [address] 64727- 1872 Sep, [facility] [address] 36062- 8765 Sep, [facility] [id number] [place] [address] 47484- 2624 Sep, [facility] [address] 54365- 9759 Sep, [facility] [address] [address]- 6164 Sep, Left leg pain M79.605 [facility] [address] [address]- 5776 Sep, HTN (hypertension) I10 [facility] [id number] [address]- 8256 Sep, [facility] [id number] [place] [address] 36176- 4959 Sep, Post-traumatic stress disorder, unspecified F43.10 ; Major depressive disorder, recurrent, moderate F33.1 and Problems related to release from snf Z65.2 [facility] [address] [address]- 9456 Sep, [facility] [id number] [place] [address] 18520- 2396 Aug, [facility] [address] [place] [address] 34384- 8596 Aug, Sarcoidosis D86.9 [facility] [id number] [place] [address] 82782- 7636 Aug, Sarcoidosis D86.9 [facility] [address] [address]- 8327 Aug, HTN (hypertension) I10 [facility] [id number] [place] [address] 01123- 0306 Aug, Post-traumatic stress disorder, unspecified F43.10 ; Major depressive disorder, recurrent, moderate F33.1 and Problems related to release from snf Z65.2 [facility] [address] [place] [address] 85490- 6196 Aug, [facility] [address] [address]- 7486 Aug, Left leg pain M79.605 [facility] [id number] [place] [address] 41010- 0205 26 Jul, 2017 Post-traumatic stress disorder, chronic F43.12 ; Anxiety F41.9 ; Problems related to release from snf Z65.2 and BMI 40.0-44.9, adult Z68.41 [facility] [address] 11932- 8293 20 Jul, 2017 HTN (hypertension) I10 ; Body mass index (BMI) of 40.0-44.9 in adult Z68.41 ; Acute swimmer''s ear of both sides H60.333 and Chronic pain G89.29 [facility] [address] 39966- 5544 19 Jul, 2017 Glaucoma H40.9 [facility] [address] 13685- 2492 14 Jul, 2017 [facility] [address] 39496- 8302 13 Jul, 2017 Sarcoidosis D86.9 [facility] [address] 76527- 2214 12 Jul, 2017 Left leg pain M79.605 [facility] [address] 90927- 2916 12 Jul, 2017 Sarcoidosis D86.9 [facility] [address] 67937- 2667 Jul, Post-traumatic stress disorder, unspecified F43.10 ; Major depressive disorder, recurrent, moderate F33.1 and Problems related to release from snf Z65.2 [facility] [address] 48640- 8129 June, [facility] [address] 86287 -4573 June, Sore throat J02.9 and BMI 40.0-44.9, adult Z68.41 [facility] [address] [place] [address]- 2405 June, [facility] [address] [address]- 6619 June, [facility] [address] 9056 June, [facility] [address] [place] [address] 238501- 6401 June, Left leg pain M79.605 [facility] [id number] [place] [address] 99252- 9478 June, Sarcoidosis D86.9 [facility] [id number] [place] [address] 96173- 6914 June, [facility] [id number] [place] [address] 56907- 0344 June, [facility] [id number] [place] [address] 94967- 5949 June, Left leg pain M79.605 [facility] [address] [address]- 9007 May, [facility] [id number] [address]- 4897 May, [facility] [address] [address]- 8954 May, [facility] [address] [place] [address] 09702- 5890 May, Left leg pain M79.605 [facility] [address] [address]- 8951 May, Post-traumatic stress disorder, unspecified F43.10 ; Major depressive disorder, recurrent, moderate F33.1 and Problems related to release from snf Z65.2 [facility] [address] [address]- 2151 May, Chronic pain G89.29 ; Anxiety F41.9 ; Chest pain, unspecified type R07.9 and BMI 40.0-44.9, adult Z68.41 [facility] [id number] [place] [address] 03168- 2772 30 Apr, 2017 [facility] [id number] [place] [address] 37987- 3153 Apr, Left leg pain M79.605 [facility] [address] 66624- 4016 27 Apr, 2017 Post-traumatic stress disorder, unspecified F43.10 ; Problems related to release from snf Z65.2 ; Anxiety F41.9 and BMI 40.0-44.9 , adult Z68.41 [facility] [id number] [place] [address] 67400- 2182 Apr, [facility] [id number] [place] [address] 36413- 5495 19 Apr, 2017 Left leg pain M79.605 [facility] [id number] [place] [address] 30441- 8160 13 Apr, 2017 Post-traumatic stress disorder, unspecified F43.10 ; Major depressive disorder, recurrent, moderate F33.1 and Problems related to release from snf Z65.2 [facility] [address] [place] [address] 71262- 9173 Apr, [facility] [id number] [place] [address] 56550- 2809 Apr, Chronic pain G89.29 ; 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 ; Morbid (severe) obesity due to excess calories E66.01 ; Anxiety F41.9 and BMI 40.0-44.9, adult Z68.41 [facility] [address] [place] [address] 00646 -2835 Apr, Sore throat J02.9 and BMI 40.0-44.9, adult Z68.41 [facility] [id number] [place] [address] 76772- 0822 Apr, Left leg pain M79.605 [facility] [id number] [place] [address] [id number] 28 Mar, 2017 Dental examination Z01.20 [facility] [id number] [place] [address] 82292- 5206 Mar, [facility] [address] 61865 -0804 Mar, Cough R05 ; Viral gastroenteritis A08.4 and BMI 40.0-44.9, adult Z68.41 [facility] [address] 41689- 7578 Mar, Left leg pain M79.605 [facility] [address] 28936- 6070 Mar, Post-traumatic stress disorder, unspecified F43.10 ; Major depressive disorder, recurrent, moderate F33.1 and Problems related to release from snf Z65.2 [facility] [address] 91857- 8687 Feb, Left leg pain M79.605 [facility] [id number] [place] [address] 24992- 9077 Feb, [facility] [address] 05994- 2621 Feb, BMI 40.0-44.9, adult Z68.41 ; Chronic pain syndrome G89.4 ; Migraine without aura and without status migrainosus, not intractable G43.009 ; Mitral valve prolapse I34.1 and 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 [facility] [id number] [place] [address] 44877- 3767 Feb, Post-traumatic stress disorder, chronic F43.12 ; Anxiety F41.9 ; Problems related to release from snf Z65.2 and BMI 40.0-44.9, adult Z68.41 [facility] [address] [place] [address] 82782- 9396 Feb, Post-traumatic stress disorder, unspecified F43.10 ; Major depressive disorder, recurrent, moderate F33.1 and Problems related to release from snf Z65.2 [facility] [address] [place] [address] 28203- 1533 Feb, Left leg pain M79.605 [facility] [id number] [place] [address] 07503- 5836 Jan, Post-traumatic stress disorder, unspecified F43.10 ; Major depressive disorder, recurrent, moderate F33.1 and Problems related to release from snf Z65.2 [facility] [id number] [place] [address] 74465- 3576 Jan, [facility] [id number] [place] [address] 23463- 4263 Jan, [facility] [id number] [place] [address] 25148- 6726 Jan, Anxiety F41.9 [facility] [id number] [place] [address] 83086- 5241 Jan, Left leg pain M79.605 [facility] [address] [place] [address] 92140- 4266 Dec, Left leg pain M79.605 [facility] [id number] [place] [address] 98511- 2536 Dec, [facility] [id number] [place] [address] 23425- 8543 15 Dec, 2016 Post-traumatic stress disorder, unspecified F43.10 ; Major depressive disorder, recurrent, moderate F33.1 and Problems related to release from snf Z65.2 [facility] [address] [place] [address] 08540- 5424 Nov, Chronic pain G89.29 and Anxiety F41.9 [facility] [address] [place] [address] 25553- 3210 24 Nov, 2016 Chronic pain G89.29 and Anxiety F41.9 [facility] [address] [address]- 3473 16 Nov, 2016 Post-traumatic stress disorder, unspecified F43.10 ; Major depressive disorder, recurrent, moderate F33.1 and Problems related to release from snf Z65.2 [facility] [address] 46803- 8600 09 Nov, 2016 Other abnormal findings in specimens from other organs, systems and tissues R89.8 ; Other male erectile dysfunction N52.8 ; Body mass index (BMI) of 40.0-44.9 in adult Z68.41 and Morbid (severe) obesity due to excess calories E66.[address] 63204- 9285 02 Nov, 2016 Post-traumatic stress disorder, unspecified F43.10 ; Major depressive disorder, recurrent, moderate F33.1 and Problems related to release from snf Z65.2 [facility] [id number] Oct, Dental examination Z01.20 [facility] [id number] [place] [address] 66886- 2491 Oct, [facility] [address] 06103- 3313 28 Oct, 2016 Encounter for immunization Z23 [facility] [id number] [place] [address] 26365- 4950 Oct, Chronic pain G89.29 ; Anxiety F41.9 ; Arrhythmia as indication for cardiac pacemaker replacement I49.9 and Glaucoma H40.9 [facility] [id number] [place] [address] 25123- 4984 Oct, Anxiety F41.9 ; Post-traumatic stress disorder, chronic F43.12 and Problems related to release from snf Z65.2 [facility] [address] [address]- 7020 07 Oct, 2016 Post-traumatic stress disorder, unspecified F43.10 ; Major depressive disorder, recurrent, moderate F33.1 and Problems related to release from snf Z65.2 [facility] [address] [address]- 7656 Sep, Chronic pain G89.29 and Anxiety F41.9 [id number] [place] [address] 48543- 3107 Sep, Post-traumatic stress disorder, unspecified F43.10 ; Major depressive disorder, recurrent, moderate F33.1 and Problems related to release from snf Z65.2 [facility] [id number] [place] [address] 76658- 5331 Sep, Post-traumatic stress disorder, unspecified F43.10 ; Major depressive disorder, recurrent, moderate F33.1 and Problems related to release from snf Z65.2 [facility] [id number] [place] [address] 91575- 2292 Sep, Chronic pain G89.29 [id number] [place] [address] 14119- 5563 Aug, Dental caries, unspecified K02.[address] [place] [address] 11820- 9095 Aug, Sleep apnea, obstructive G47.33 ; Obesity E66.9 ; Chronic pain G89.29 ; HTN (hypertension) I10 ; Major depressive disorder, recurrent, moderate F33.1 ; Anxiety F41.9 ; Chronic tension headaches G44.229 ; Mitral valve prolapse I34.1 ; Arrhythmia as indication for cardiac pacemaker replacement I49.9 ; Dental caries, unspecified K02.9 ; Primary insomnia F51.01 and Hyperlipidemia E78.5 [address] [address]- 3787 Aug, Post-traumatic stress disorder, unspecified F43.10 ; Major depressive disorder, recurrent, moderate F33.1 and Problems related to release from snf Z65.2 [facility] [address], [place] [address]- 2822 20 Aug, 2016 Dental examination Z01.20 [facility] [address] [address] 13 Aug, 2016 Dental examination Z01.20 [facility] [id number] [place] [address] 47151- 5317 06 Aug, 2016 Post-traumatic stress disorder, unspecified F43.10 ; Major depressive disorder, recurrent, moderate F33.1 and Problems related to release from snf Z65.2 [facility] [id number] [place] [address] 97514- 3872 05 Aug, 2016 Chronic pain G89.29 and Primary insomnia F51.01 [facility] [id number] [place] [address] 62802- 9157 30 Jul, 2016 [facility] [id number] [place] [address] 31241- 8996 30 Jul, 2016 [facility] [id number] [place] [address] 27463- 4723 Jul, Nausea R11.0 [facility] [id number] [place] [address] 40264- 1038 Jul, Arrhythmia as indication for cardiac pacemaker replacement I49.9 [facility] [id number] [place] [address] 93294- 1782 Jul, Post-traumatic stress disorder, unspecified F43.10 ; Major depressive disorder, recurrent, moderate F33.1 and Problems related to release from snf Z65.2 [facility] [id number] [place] [address] 70837- 2528 09 Jul, 2016 Anxiety F41.9 [facility] [id number] [place] [address] 89102- 0592 08 Jul, 2016 Chronic pain G89.29 [facility] [address] [place] [address]- 3105 Jul, Sleep apnea, obstructive G47.33 ; Hyperlipidemia E78.5 ; Chronic pain G89.29 ; Blindness and low vision H54.10 ; Major depressive disorder, recurrent, moderate F33.1 ; Anxiety F41.9 ; Mitral valve prolapse I34.1 ; Arrhythmia as indication for cardiac pacemaker replacement I49.9 ; Primary insomnia F51.01 ; Bilateral headaches R51 and Environmental allergies Z91.09 [facility] [address] 66517- 6091 Jul, Post-traumatic stress disorder, unspecified F43.10 ; Major depressive disorder, recurrent, moderate F33.1 and Problems related to release from snf Z65.2 [facility] [address] 00066- 9582 June, Post-traumatic stress disorder, chronic F43.12 ; Anxiety F41.9 ; Problems related to release from snf Z65.2 ; Sleep apnea, obstructive G47.33 and Primary insomnia F51.01 [facility] [id number] [place] [address] 93112- 4732 June, [facility] [address] 54123- 9847 June, [facility] [id number] [place] [address] 59170- 9437 June, [facility] [id number] [place] [address] 45809- 6167 June, Chronic pain G89.29 [facility] [id number] [place] [address] 82898- 4656 June, Chronic pain G89.29 [facility] [address] 93128- 9859 June, Lipoma of left lower extremity D17.24 ; Open wound T14.8 and Swelling of left lower extremity M79.89 [facility] [address] 28866- 2609 June, Post-traumatic stress disorder, unspecified F43.10 ; Major depressive disorder, recurrent, moderate F33.1 and Problems related to release from snf Z65.2 [facility] [id number] [place] [address] 34022- 5534 May, Lipoma of left lower extremity D17.24 ; Major depressive disorder, recurrent, moderate F33.1 ; Sleep apnea, obstructive G47.33 ; Hyperlipidemia E78.5 ; Obesity E66.9 ; HTN (hypertension) I10 ; Glaucoma H40.9 ; CAD (coronary artery disease) I25.10 ; Chronic tension headaches G44.229 ; Chronic pain G89.29 ; Anxiety F41.9 ; Nausea R11.0 and Primary insomnia F51.01 [facility] [id number] [place] [address] 69253- 2562 May, [facility] [address] 03833- 8491 May, Chronic pain G89.29 [facility] [address] 45516- 4107 May, [facility] [id number] [place] [address] 20581- 8822 Apr, Post-traumatic stress disorder, unspecified F43.10 ; Major depressive disorder, recurrent, moderate F33.1 and Problems related to release from snf Z65.2 [facility] [id number] [place] [address] 75533- 1986 Apr, Primary insomnia F51.01 ; Post-traumatic stress disorder, chronic F43.12 and Problems related to release from snf Z65.2 [id number] [place] [address] 41144- 5694 Apr, Post-traumatic stress disorder, unspecified F43.10 ; Major depressive disorder, recurrent, moderate F33.1 and Problems related to release from snf Z65.2 [id number] [place] [address] 89908- 7621 16 Apr, 2016 [place] [facility] [id number] [place] [address] 54607- 1315 16 Apr, 2016 Sleep apnea, obstructive G47.33 ; Chronic pain G89.29 ; HTN (hypertension) I10 ; Mitral valve prolapse I34.1 ; Shoulder pain, left M25.512 ; Arrhythmia as indication for cardiac pacemaker replacement I49.9 ; Glaucoma H40.9 ; Bilateral headaches R51 ; Environmental allergies Z91.09 ; Primary insomnia F51.01 and Nausea R11.0 [facility] [id number] [place] [address] 23518- 7883 Apr, [facility] [address] 63034- 9400 Apr, [facility] [id number] [place] [address] 97769- 5346 Apr, Post-traumatic stress disorder, unspecified F43.10 ; Major depressive disorder, recurrent, moderate F33.1 and Problems related to release from snf Z65.2 [facility] [address] [id number] [place] [address] [phone]- [phone] 07 Apr, 2016 HTN (hypertension) I10 [place] [address] [place] [id number] [place] [address] [phone] 07 Apr, 2016 HTN (hypertension) I10 [place] [address] [place] [id number] [place] [address] 23020- 0561 14 Mar, 2016 Chronic pain G89.29 ; Primary insomnia F51.01 and Problems related to release from snf Z65.2 [place] [id number] [place] [address] [phone] 07 Mar, 2016 Post-traumatic stress disorder, unspecified F43.10 ; Major depressive disorder, recurrent, moderate F33.1 and Problems related to release from snf Z65.2 [place] [id number] [place] [address] [phone]- [phone] Feb, Post-traumatic stress disorder, unspecified F43.10 ; Major depressive disorder, recurrent, moderate F33.1 and Problems related to release from snf Z65.2 [facility] [address] [place] [id number] [place] [address] [phone]- [phone] Feb, Chronic tension headaches G44.229 [facility] [id number] [place] [address] 06508- 9452 Feb, Sleep apnea, obstructive G47.33 ; Obesity E66.9 ; Hyperlipidemia E78.5 ; Glaucoma H40.9 ; Chronic pain G89.29 ; HTN (hypertension ) I10 ; Blindness and low vision H54.10 ; 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 ; Chronic tension headaches G44.229 ; Cough R05 ; CAD (coronary artery disease) I25.10 ; Problems related to release from snf Z65.2 ; Arrhythmia as indication for cardiac pacemaker replacement I49.9 and Primary insomnia F51.01 [place] [address] 00658- 2422 Feb, Post-traumatic stress disorder, unspecified F43.10 and Chronic pain G89.29 [place] [address] 06673- 6992 Feb, [facility] [address] [id number] Feb, Dental caries K02.9 [place] [address] 99370- 8643 Feb, [place] [address] 18059- 8984 Feb, Post-traumatic stress disorder, unspecified F43.10 ; Major depressive disorder, recurrent, moderate F33.1 and Problems related to release from snf Z65.2 [place] [id number] [place] [address] 18228- 8972 Jan, Sleep apnea, obstructive G47.33 and Chronic pain G89.29 [facility] [address] 38950- 9127 Jan, [place] [address] [address] 14 Jan, 2016 Dental examination Z01.20 [place] [id number] [place] [address] 74057- 4855 Jan, [place] [id number] [place] [address] 95238- 4600 Jan, [place] [id number] [place] [address] 18383- 8045 Dec, Post-traumatic stress disorder, unspecified F43.10 ; Major depressive disorder, recurrent, moderate F33.1 and Problems related to release from snf Z65.2 [place] [id number] [place] [address] 06800- 3841 Dec, Encounter for immunization Z23 ; Problems related to release from snf Z65.2 ; Sleep apnea, obstructive G47.33 and Post-traumatic stress disorder, chronic F43.12 [place] [id number] [place] [address] 65089- 4092 18 Dec, 2015 Sleep apnea, obstructive G47.33 ; Hyperlipidemia E78.5 ; Chronic pain G89.29 ; Glaucoma H40.9 ; HTN (hypertension) I10 ; Post-traumatic stress disorder, unspecified F43.10 ; Anxiety F41.9 ; Chronic tension headaches G44.229 ; Mitral valve prolapse I34.1 and CAD (coronary artery disease) I25.10 [place] [address] [address] 15 Dec, 2015 Post-traumatic stress disorder, unspecified F43.10 ; Major depressive disorder, recurrent, moderate F33.1 and Problems related to release from snf Z65.2 [address] [place] [address] 72157- 0679 Nov, Chronic pain G89.29 [address] [place] [address] 31030- 8917 Nov, Post-traumatic stress disorder, unspecified F43.10 ; Major depressive disorder, recurrent, moderate F33.1 and Problems related to release from snf Z65.2 [facility] [id number] [place] [address] 82795- 0182 Oct, [facility] [id number] [place] [address] 90944- 1114 Oct, [facility] [id number] [place] [address] 19094- 3552 Oct, Post-traumatic stress disorder, unspecified F43.10 ; Major depressive disorder, recurrent, moderate F33.1 and Problems related to release from snf Z65.2 [place] [id number] [place] [address] 79118- 0458 08 Oct, 2015 [facility] [id number] [place] [address] 85049- 3195 07 Oct, 2015 Environmental allergies Z91.09 ; Cough R05 and 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 [place] [id number] [place] [address] 83345- 3181 Sep, [place] [id number] [place] [address] 19969- 4777 Sep, Post-traumatic stress disorder, unspecified F43.10 ; Major depressive disorder, recurrent, moderate F33.1 and Problems related to release from snf Z65.2 [place] [id number] [place] [address] 55349- 3761 Sep, Chronic pain G89.29 [place] [id number] [place] [address] 94087- 2303 Sep, Pain in left shoulder M25.512 ; Pain in right shoulder M25.511 and Other chronic pain G89.29 [place] [id number] [place] [address] 50597- 9016 Sep, [place] [id number] [place] [address] 02462- 5765 Sep, [facility] [address] [address] 0615 Sep, [facility] [id number] [place] [address] [id number] Aug, Dental examination Z01.20 [facility] [id number] [place] [address] 38412- 9851 Aug, Post-traumatic stress disorder, unspecified F43.10 ; Open- angle glaucoma of both 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 and Problems related to release from snf Z65.2 [facility] [id number] [place] [address] 92038- 6542 Aug, [facility] [id number] [place] [address] 14504- 8328 Aug, Sleep apnea, obstructive G47.33 ; Obesity E66.9 ; Hyperlipidemia E78.5 ; Bilateral headaches R51 ; HTN (hypertension) I10 ; Post- traumatic stress disorder, unspecified F43.10 ; Anxiety F41.9 ; Neuropathy G62.9 ; Glaucoma H40.9 and Chronic pain G89.29 [facility] [id number] [place] [address] [id number] Aug, Encounter for dental examination Z01.20 [facility] [address] [address] 6108 Aug, Post-traumatic stress disorder, unspecified F43.10 ; Major depressive disorder, recurrent, moderate F33.1 and Problems related to release from snf Z65.2 [facility] [address] [address] 6768 Aug, [facility] [id number] [place] [address] 87326- 0472 Jul, [facility] [address] [address]- 3592 Jul, Post-traumatic stress disorder, unspecified F43.10 and Major depressive disorder, recurrent, moderate F33.1 [facility] [address] [address]- 5244 Jul, [facility] [id number] [place] [address] 65240- 0470 Jul, [facility] [address] [address]- 5595 Jul, Chronic pain G89.29 [facility] [id number] [place] [address] 47912- 3143 June, Post-traumatic stress disorder, unspecified F43.10 and Major depressive disorder, recurrent, moderate F33.1 [facility] [id number] [place] [address] 56172- 2196 June, [facility] [id number] [place] [address] 61775- 1770 June, Chronic pain G89.29 [facility] [id number] [place] [address] 99087- 3842 June, Post-traumatic stress disorder, unspecified F43.10 and Major depressive disorder, recurrent, moderate F33.1 [facility] [id number] [place] [address] 19599- 0659 May, Post-traumatic stress disorder, unspecified F43.10 and Major depressive disorder, recurrent, moderate F33.1 [facility] [address] [address]- 4298 May, [facility] [address] [address]- 8569 May, [facility] [id number] [place] [address] 15049- 4622 May, [facility] [address] [address]253 Apr, [facility] [id number] [place] [address] 01507- 1457 Apr, Post-traumatic stress disorder, unspecified F43.10 and Sleep apnea, obstructive G47.33 [facility] [id number] [place] [address] 28902- 1214 Apr, [facility] [id number] [place] [address] 01568- 7813 Apr, Shoulder pain, left M25.512 [facility] [address] 00040- 7082 Apr, Post-traumatic stress disorder, unspecified F43.10 and Major depressive disorder, recurrent, moderate F33.1 [facility] [address] 61[address]- 1949 17 Apr, 2015 [facility] [id number] [place] [address] 38417- 2127 Apr, [facility] [address] 13700- 3078 Apr, [facility] [id number] [place] [address] 31913- 6192 Apr, Left shoulder pain M25.512 [facility] [id number] [place] [address] 38240- 5305 Mar, [facility] [id number] [place] [address] 04181- 5797 Mar, [facility] [id number] [place] [address] 31507- 3552 Mar, [facility] [id number] [place] [address] 88933- 7831 12 Mar, 2015 Sleep apnea, obstructive G47.33 ; Obesity E66.9 ; Chronic pain G89.29 ; Hyperlipidemia E78.5 ; HTN (hypertension) I10 ; Blindness and low vision H54.10 ; Major depressive disorder, recurrent, moderate F33.1 and Anxiety F41.9 [facility] [id number] [place] [address] 06393- 2505 Mar, [place] [id number] [place] [address] Mar, Post-traumatic stress disorder, unspecified F43.10 and Major depressive disorder, recurrent, moderate F33.1 [place] [id number] [place] [address] 95017- 9502 Mar, [place] [address]- 6528 Mar, HTN (hypertension) I10 ; Blindness and low vision H54.10 ; Obesity E66.9 ; Hyperlipidemia E78.5 ; Glaucoma H40.9 ; Chronic pain G89.29 and CAD (coronary artery disease) I25.10 [address] [id number] [place] [address] 72042- 6281 Feb, [place] [address]- 4277 Feb, Post-traumatic stress disorder, unspecified F43.10 ; Obesity E66.9 ; Sleep apnea, obstructive G47.33 and 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 [place] [id number] [place] [address] 64193- 1624 Feb, Post-traumatic stress disorder, unspecified F43.10 and Major depressive disorder, recurrent, moderate F33.1 [place] [id number] [place] [address] 37728- 1536 Feb, [address] [id number] [place] [address] 65835- 5670 Feb, [place] [address]- 1432 Feb, HTN (hypertension) I10 ; Post-traumatic stress disorder, unspecified F43.10 ; Blindness and low vision H54.10 ; Obesity E66.9 ; Hyperlipidemia E78.5 ; Chronic pain G89.29 ; Glaucoma H40.9 ; Mitral valve prolapse I34.1 and Bilateral headaches R51 [place] [id number] [place] [address] 98019- 7047 Feb, [place] [id number] [place] [address] 53421- 4080 Feb, Post-traumatic stress disorder, unspecified F43.10 and Major depressive disorder, recurrent, moderate F33.1 [place] [address] 44364- 2037 Feb, [place] [id number] [place] [address] 78286- 0801 Feb, [place] [address] 29880- 8984 Jan, [place] [address] 89994- 9681 Jan, [place] [address] 12575- 8543 Jan, Obesity E66.9 ; HTN (hypertension) I10 ; Blindness and low vision H54.10 ; Major depressive disorder, recurrent, moderate F33.1 ; Glaucoma H40.9 ; Hyperlipidemia E78.5 ; Sleep apnea, obstructive G47.33 ; Chronic pain G89.29 ; Anxiety F41.9 ; Chronic tension headaches G44.229 and Cough R05 [place] [id number] [place] [address] 63024- 8673 Jan, [place] [id number] [place] [address] 51799- 1236 Jan, [place] [id number] [place] [address] 63445- 9761 Jan, Post-traumatic stress disorder, unspecified F43.10 ; Obesity E66.9 ; Sleep apnea, obstructive G47.33 and 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 [place] [id number] [place] [address] 33565- 2590 Jan, [place] [id number] [place] [address] 85258- 2926 Jan, Post-traumatic stress disorder, unspecified F43.10 and Major depressive disorder, recurrent, moderate F33.1 [place] [address] 75657- 4605 Dec, [address] 689352- 1128 Dec, Sleep apnea, obstructive G47.33 ; Obesity E66.9 ; Hyperlipidemia E78.5 ; Glaucoma H40.9 ; Chronic pain G89.29 ; HTN (hypertension ) I10 ; Blindness and low vision H54.10 ; Anxiety F41.9 and CAD (coronary artery disease) I25.[address] 96759- 4285 Nov, [address] 36054- 6409 Nov, [place] [address] 12556- 5235 Nov, [address] 75349- 0553 Nov, [place] [address] 79495- 2791 Nov, [address] 12692- 1234 Nov, Encounter for immunization Z23 ; Sleep apnea, obstructive G47.33 ; Obesity E66.9 ; Hyperlipidemia E78.5 ; Glaucoma H40.9 ; Chronic pain G89.29 ; Anxiety F41.9 ; Chronic tension headaches G44.229 and HTN (hypertension ) I10 [address] 60564- 7525 Nov, [address] 04439- 0289 Nov, [facility] [address] [address]- 9793 06 Nov, 2014 Dizziness R42 [facility] [id number] [place] [address] 01014- 9467 Nov, [facility] [id number] [place] [address] 36593- 5218 Oct, [facility] [id number] [place] [address] 60643- 2157 Oct, [facility] [id number] [place] [address] 18318- 7437 Oct, [facility] [id number] [place] [address] 24501- 7948 Oct, [facility] [id number] [place] [address] 41953- 2183 Oct, Dizziness 780.4 ; Essential hypertension 401.9 ; Obesity 278.00 ; Hyperlipidemia 272.4 ; Chronic pain 338.29 ; Glaucoma 365.9 and Anxiety 300.00 [facility] [id number] [place] [address] 08981- 6961 Oct, Essential hypertension 401.9 ; Hyperlipidemia 272.4 ; Glaucoma 365.9 ; Obesity 278.00 ; Chronic pain 338.29 and Allergy to insects V15.06 [facility] [address], [place] [address]- 4252 Sep, [facility] [id number] [place] [address] 38094- 6853 Sep, [facility] [id number] [place] [address] 70985- 6315 Sep, [facility] [id number] [place] [address] 82689- 1048 Sep, [facility] [address] [address]- 3996 Aug, Essential hypertension 401.9 ; Obesity 278.00 ; Hyperlipidemia 272.4 ; Glaucoma 365.9 ; Lipoma 214.9 ; Mitral valve prolapse 424.0 ; Angina at rest 413.9 ; Lymphedema 457.1 and Chronic pain 338.29 IMMUNIZATIONS No Known Immunizations SOCIAL HISTORY Never Assessed REASON FOR VISIT Controlled Medication Refill- Due 11/10 PLAN OF CARE VITAL SIGNS MEDICATIONS Medication [...]
--- OUTSIDE RECORDS SUMMARY | 2018-02-04 14:08 | XMS REPORT ---
Author Author DALJIT DAMON Organization [facility] Address [address] [place] [address] Care Team Providers Care Correspondence [employer] Instructor Name Role Phone MARISOLLILIA Unavailable PROBLEMS Type Condition ICD9-CM Code QCR28-HF Code Onset Dates Condition Status SNOMED Code Problem Hyperlipidemia E78.5 Active 34793248 Problem Sleep apnea, obstructive G47.33 Active 78254607 Problem Primary insomnia F51.01 Active 4655569 Problem Chronic pain G89.29 Active 21224111 Problem Morbid (severe) obesity due to excess calories E66.01 Active 108749303 Problem Myocarditis, unspecified chronicity, 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 Active 39316007 Problem Other male erectile dysfunction N52.8 Active 214357277 Problem 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 Active 379009654 Problem Body mass index (BMI) of 40.0-44.9 in adult Z68.41 Active 895635379 Problem Supraventricular tachycardia I47.1 Active 5074191 Problem Insomnia disorder with non-sleep disorder mental comorbidity G47.00 Active 56678796 Problem Chronic tension headaches G44.229 Active 071337671 Problem HTN (hypertension) I10 Active 24567954 Problem Blindness and low vision H54.10 Active 360105147 Problem Chronic pain syndrome G89.4 Active 081848425 Problem Migraine without aura and without status migrainosus, not intractable G43.009 Active 755695448 Problem Sarcoidosis D86.9 Active 24817480 Problem Problems related to release from correction Z65.2 Active 851073718209961 Problem 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 Active 38788708 Problem Mitral valve prolapse I34.1 Active 574187967 Problem Anxiety F41.9 Active 58140956 Problem Major depressive disorder, recurrent, moderate F33.1 Active 83320190 Problem Environmental allergies Z91.09 Active 630753679 Problem Arrhythmia as indication for cardiac pacemaker replacement I49.9 Active 73248218 Problem CAD (coronary artery disease) I25.10 Active 42101152 Problem Post-traumatic stress disorder, chronic F43.12 Active 028670796 ALLERGIES No Information ENCOUNTERS Encounter Location Date Diagnosis [facility] [id number] [place] [address] 95609- 8779 Dec, [facility] [id number] [place] [address] 46961- 0286 16 Nov, 2017 [facility] [address] 61495- 4511 Nov, [facility] [id number] [place] [address] 31706- 4913 Nov, Left leg pain M79.605 [facility] [id number] [place] [address] [id number] 28 Oct, 2017 Dental examination Z01.20 [facility] [facility] [id number] [place] [address] 88439- 1634 Oct, Insomnia disorder with non-sleep disorder mental comorbidity G47.00 [facility] [facility] [id number] [place] [address] 71926- 2705 25 Oct, 2017 Post-traumatic stress disorder, chronic F43.12 ; Insomnia disorder with non-sleep disorder mental comorbidity G47.00 and BMI 40.0-44.9, adult Z68.41 [facility] [id number] [place] [address] 77446- 4694 Oct, [facility] [id number] [place] [address] 06203 -0966 18 Oct, 2017 Insect bite (nonvenomous), left lower leg, initial encounter S80.862A ; Bitten or stung by nonvenomous insect and other nonvenomous arthropods, initial encounter W57.XXXA and BMI 40.0-44.9, adult Z68.41 [facility] [address] [place] [address] 05961- 4625 06 Oct, 2017 Left leg pain M79.605 [facility] [facility] [id number] [place] [address] 56348- 9654 04 Oct, 2017 Post-traumatic stress disorder, unspecified F43.10 ; Major depressive disorder, recurrent, moderate F33.1 and Problems related to release from correction Z65.2 [facility] [id number] [place] [address] 94269- 1620 2017 Arrhythmia as indication for cardiac pacemaker replacement I49.9 [facility] [address] 31647- 5318 Sep, [facility] [address] 81552- 7107 Sep, HTN (hypertension) I10 [facility] [id number] [place] [address] 31963- 3810 Sep, [facility] [id number] [place] [address] 30369- 9154 16 Sep, 2017 Body mass index (BMI) of 40.0-44.9 in adult Z68.41 ; Chronic pain G89.29 and Supraventricular tachycardia I47.1 [facility] [id number] [place] [address] 92247- 7278 Sep, [facility] [id number] [place] [address] 33332- 9472 Sep, Sarcoidosis D86.9 [facility] [id number] [place] [address] 09718- 7657 Sep, Sarcoidosis D86.9 [facility] [id number] [place] [address] 94262- 9273 Sep, [facility] [address] 18228- 4219 Sep, [facility] [id number] [place] [address] 56564- 2969 Sep, [facility] [address] 03394- 2117 Sep, [facility] [address] [address]- 7479 Sep, Left leg pain M79.605 [facility] [address] [place] [address]- 1146 Sep, HTN (hypertension) I10 [facility] [id number] [address]- 4136 Sep, [facility] [id number] [place] [address] 36227- 2265 Sep, Post-traumatic stress disorder, unspecified F43.10 ; Major depressive disorder, recurrent, moderate F33.1 and Problems related to release from correction Z65.2 [facility] [address], [place] [address]- 8386 Sep, [facility] [id number] [place] [address] 39668- 6526 Aug, [facility] [id number] [place] [address] 56237- 0261 Aug, Sarcoidosis D86.9 [facility] [id number] [place] [address] 76833- 7596 Aug, Sarcoidosis D86.9 [facility] [address] [address]- 6585 Aug, HTN (hypertension) I10 [facility] [id number] [place] [address] 20213- 0416 Aug, Post-traumatic stress disorder, unspecified F43.10 ; Major depressive disorder, recurrent, moderate F33.1 and Problems related to release from correction Z65.2 [facility] [address] [place] [address] 59544- 2786 Aug, [facility] [address] [address]- 2496 Aug, Left leg pain M79.605 [facility] [id number] [place] [address] 58713- 2148 26 Jul, 2017 Post-traumatic stress disorder, chronic F43.12 ; Anxiety F41.9 ; Problems related to release from correction Z65.2 and BMI 40.0-44.9, adult Z68.41 [facility] [facility] [address] 07312- 6512 20 Jul, 2017 HTN (hypertension) I10 ; Body mass index (BMI) of 40.0-44.9 in adult Z68.41 ; Acute swimmer''s ear of both sides H60.333 and Chronic pain G89.29 [place] [address] 50547- 7518 19 Jul, 2017 Glaucoma H40.9 [place] [address] 05718- 9266 14 Jul, 2017 [place] [address] 81434- 2933 13 Jul, 2017 Sarcoidosis D86.9 [place] [address] 62355- 9843 12 Jul, 2017 Left leg pain M79.605 [place] [address] 18049- 4969 12 Jul, 2017 Sarcoidosis D86.9 [place] [address] 35359- 2890 Jul, Post-traumatic stress disorder, unspecified F43.10 ; Major depressive disorder, recurrent, moderate F33.1 and Problems related to release from correction Z65.2 [place] [address] 32235- 1436 June, [facility] [address] 29653 -0495 June, Sore throat J02.9 and BMI 40.0-44.9, adult Z68.41 [place] [address] [place] [address]- 3324 June, [facility] [address], [place] [address]- 1792 June, [facility] [address] 8552 June, [facility] [address] [place] [address] 116787- 4419 June, Left leg pain M79.605 [facility] [id number] [place] [address] 74414- 5162 June, Sarcoidosis D86.9 [facility] [id number] [place] [address] 94676- 0963 June, [facility] [id number] [place] [address] 41733- 6157 June, [facility] [id number] [place] [address] 50922- 7567 June, Left leg pain M79.605 [facility] [address], [place] [address]- 9576 May, [facility] [id number] [address]- 3569 May, [facility] [address] [place] [address]- 1242 May, [facility] [address] [place] [address] 65751- 7381 May, Left leg pain M79.605 [facility] [address], [place] [address]- 2655 May, Post-traumatic stress disorder, unspecified F43.10 ; Major depressive disorder, recurrent, moderate F33.1 and Problems related to release from correction Z65.2 [facility] [address], [place] [address]- 5784 May, Chronic pain G89.29 ; Anxiety F41.9 ; Chest pain, unspecified type R07.9 and BMI 40.0-44.9, adult Z68.41 [facility] [id number] [place] [address] 42451- 8030 30 Apr, 2017 [place] [id number] [place] [address] 62179- 5810 Apr, Left leg pain M79.605 [facility] [facility] [address] 09320- 1584 27 Apr, 2017 Post-traumatic stress disorder, unspecified F43.10 ; Problems related to release from correction Z65.2 ; Anxiety F41.9 and BMI 40.0-44.9 , adult Z68.41 [facility] [id number] [place] [address] 46223- 8986 Apr, [facility] [facility] [id number] [place] [address] 13260- 1139 19 Apr, 2017 Left leg pain M79.605 [facility] [facility] [id number] [place] [address] 31053- 0701 13 Apr, 2017 Post-traumatic stress disorder, unspecified F43.10 ; Major depressive disorder, recurrent, moderate F33.1 and Problems related to release from correction Z65.2 [facility] [address] [place] [address] 34518- 9540 Apr, [facility] [facility] [id number] [place] [address] 75169- 3778 Apr, Chronic pain G89.29 ; 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 ; Morbid (severe) obesity due to excess calories E66.01 ; Anxiety F41.9 and BMI 40.0-44.9, adult Z68.41 [facility] [address] [place] [address] 76361 -5832 Apr, Sore throat J02.9 and BMI 40.0-44.9, adult Z68.41 [facility] [id number] [place] [address] 30485- 8353 Apr, Left leg pain M79.605 [facility] [id number] [place] [address] [id number] 28 Mar, 2017 Dental examination Z01.20 [facility] [id number] [place] [address] 95826- 0066 Mar, [facility] [address] 67137 -1507 Mar, Cough R05 ; Viral gastroenteritis A08.4 and BMI 40.0-44.9, adult Z68.41 [place] [address] 57616- 1092 Mar, Left leg pain M79.605 [place] [address] 69944- 3522 Mar, Post-traumatic stress disorder, unspecified F43.10 ; Major depressive disorder, recurrent, moderate F33.1 and Problems related to release from correction Z65.2 [place] [address] 23830- 1448 Feb, Left leg pain M79.605 [facility] [id number] [place] [address] 71649- 9589 Feb, [place] [address] 79708- 3471 Feb, BMI 40.0-44.9, adult Z68.41 ; Chronic pain syndrome G89.4 ; Migraine without aura and without status migrainosus, not intractable G43.009 ; Mitral valve prolapse I34.1 and 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 [place] [id number] [place] [address] 07918- 6525 Feb, Post-traumatic stress disorder, chronic F43.12 ; Anxiety F41.9 ; Problems related to release from correction Z65.2 and BMI 40.0-44.9, adult Z68.41 [facility] [address] [place] [address] 38133- 3720 Feb, Post-traumatic stress disorder, unspecified F43.10 ; Major depressive disorder, recurrent, moderate F33.1 and Problems related to release from correction Z65.2 [facility] [address] [place] [address] 26494- 2225 Feb, Left leg pain M79.605 [facility] [id number] [place] [address] 85291- 1096 Jan, Post-traumatic stress disorder, unspecified F43.10 ; Major depressive disorder, recurrent, moderate F33.1 and Problems related to release from correction Z65.2 [facility] [id number] [place] [address] 07418- 7826 Jan, [facility] [id number] [place] [address] 07352- 2722 Jan, [facility] [id number] [place] [address] 41019- 2456 Jan, Anxiety F41.9 [facility] [id number] [place] [address] 15893- 9483 Jan, Left leg pain M79.605 [facility] [address] [place] [address] 08917- 9666 Dec, Left leg pain M79.605 [facility] [id number] [place] [address] 26671- 6966 Dec, [facility] [id number] [place] [address] 08225- 2030 15 Dec, 2016 Post-traumatic stress disorder, unspecified F43.10 ; Major depressive disorder, recurrent, moderate F33.1 and Problems related to release from correction Z65.2 [facility] [address] [place] [address] 35647- 2980 Nov, Chronic pain G89.29 and Anxiety F41.9 [facility] [address] [place] [address] 02391- 9542 24 Nov, 2016 Chronic pain G89.29 and Anxiety F41.9 [place] [address] 04578705- 3004 16 Nov, 2016 Post-traumatic stress disorder, unspecified F43.10 ; Major depressive disorder, recurrent, moderate F33.1 and Problems related to release from correction Z65.2 [place] [address] 94913- 6764 09 Nov, 2016 Other abnormal findings in specimens from other organs, systems and tissues R89.8 ; Other male erectile dysfunction N52.8 ; Body mass index (BMI) of 40.0-44.9 in adult Z68.41 and Morbid (severe) obesity due to excess calories E66.[address] 37569- 3125 02 Nov, 2016 Post-traumatic stress disorder, unspecified F43.10 ; Major depressive disorder, recurrent, moderate F33.1 and Problems related to release from correction Z65.2 [facility] [address] [id number] Oct, Dental examination Z01.20 [place] [id number] [place] [address] 36779- 6303 Oct, [facility] [facility] [address] 35583- 1294 28 Oct, 2016 Encounter for immunization Z23 [facility] [id number] [place] [address] 69933- 9840 Oct, Chronic pain G89.29 ; Anxiety F41.9 ; Arrhythmia as indication for cardiac pacemaker replacement I49.9 and Glaucoma H40.9 [facility] [id number] [place] [address] 42782- 2076 Oct, Anxiety F41.9 ; Post-traumatic stress disorder, chronic F43.12 and Problems related to release from correction Z65.2 [facility] [address], [place] [address]- 3810 07 Oct, 2016 Post-traumatic stress disorder, unspecified F43.10 ; Major depressive disorder, recurrent, moderate F33.1 and Problems related to release from correction Z65.2 [facility] [address], [place] [address]- 8456 Sep, Chronic pain G89.29 and Anxiety F41.9 [address] [id number] [place] [address] 47456- 2039 Sep, Post-traumatic stress disorder, unspecified F43.10 ; Major depressive disorder, recurrent, moderate F33.1 and Problems related to release from correction Z65.2 [facility] [id number] [place] [address] 47547- 4378 Sep, Post-traumatic stress disorder, unspecified F43.10 ; Major depressive disorder, recurrent, moderate F33.1 and Problems related to release from correction Z65.2 [facility] [id number] [place] [address] 75005- 2648 Sep, Chronic pain G89.29 [id number] [place] [address] 72588- 3265 Aug, Dental caries, unspecified K02.9 [address] [place] [address] 11008- 1163 Aug, Sleep apnea, obstructive G47.33 ; Obesity E66.9 ; Chronic pain G89.29 ; HTN (hypertension) I10 ; Major depressive disorder, recurrent, moderate F33.1 ; Anxiety F41.9 ; Chronic tension headaches G44.229 ; Mitral valve prolapse I34.1 ; Arrhythmia as indication for cardiac pacemaker replacement I49.9 ; Dental caries, unspecified K02.9 ; Primary insomnia F51.01 and Hyperlipidemia E78.5 [address], [place] [address]- 3535 Aug, Post-traumatic stress disorder, unspecified F43.10 ; Major depressive disorder, recurrent, moderate F33.1 and Problems related to release from correction Z65.2 [facility] [address], [place] [address]- 6684 20 Aug, 2016 Dental examination Z01.20 [facility] [id number] [address] 13 Aug, 2016 Dental examination Z01.20 [facility] [id number] [place] [address] 62482- 7118 06 Aug, 2016 Post-traumatic stress disorder, unspecified F43.10 ; Major depressive disorder, recurrent, moderate F33.1 and Problems related to release from correction Z65.2 [facility] [id number] [place] [address] 18161- 5438 05 Aug, 2016 Chronic pain G89.29 and Primary insomnia F51.01 [facility] [id number] [place] [address] 84653- 0711 30 Jul, 2016 [facility] [id number] [place] [address] 54305- 8949 30 Jul, 2016 [facility] [id number] [place] [address] 27520- 0281 Jul, Nausea R11.0 [facility] [id number] [place] [address] 97788- 8670 Jul, Arrhythmia as indication for cardiac pacemaker replacement I49.9 [facility] [id number] [place] [address] 56281- 7036 Jul, Post-traumatic stress disorder, unspecified F43.10 ; Major depressive disorder, recurrent, moderate F33.1 and Problems related to release from correction Z65.2 [facility] [id number] [place] [address] 43161- 5728 09 Jul, 2016 Anxiety F41.9 [facility] [id number] [place] [address] 04271- 7072 08 Jul, 2016 Chronic pain G89.29 [facility] [address] [place] [address]- 4525 Jul, Sleep apnea, obstructive G47.33 ; Hyperlipidemia E78.5 ; Chronic pain G89.29 ; Blindness and low vision H54.10 ; Major depressive disorder, recurrent, moderate F33.1 ; Anxiety F41.9 ; Mitral valve prolapse I34.1 ; Arrhythmia as indication for cardiac pacemaker replacement I49.9 ; Primary insomnia F51.01 ; Bilateral headaches R51 and Environmental allergies Z91.09 [place] [address] 98242- 9453 Jul, Post-traumatic stress disorder, unspecified F43.10 ; Major depressive disorder, recurrent, moderate F33.1 and Problems related to release from correction Z65.2 [place] [address] 50871- 5556 June, Post-traumatic stress disorder, chronic F43.12 ; Anxiety F41.9 ; Problems related to release from correction Z65.2 ; Sleep apnea, obstructive G47.33 and Primary insomnia F51.01 [place] [id number] [place] [address] 90364- 4115 June, [place] [address] 18312- 4769 June, [facility] [facility] [id number] [place] [address] 44304- 5193 June, [place] [id number] [place] [address] 48544- 6749 June, Chronic pain G89.29 [place] [id number] [place] [address] 42242- 3430 June, Chronic pain G89.29 [place] [address] 35242- 1854 June, Lipoma of left lower extremity D17.24 ; Open wound T14.8 and Swelling of left lower extremity M79.89 [place] [address] 90199- 7860 June, Post-traumatic stress disorder, unspecified F43.10 ; Major depressive disorder, recurrent, moderate F33.1 and Problems related to release from correction Z65.2 [facility] [id number] [place] [address] 96295- 9191 May, Lipoma of left lower extremity D17.24 ; Major depressive disorder, recurrent, moderate F33.1 ; Sleep apnea, obstructive G47.33 ; Hyperlipidemia E78.5 ; Obesity E66.9 ; HTN (hypertension) I10 ; Glaucoma H40.9 ; CAD (coronary artery disease) I25.10 ; Chronic tension headaches G44.229 ; Chronic pain G89.29 ; Anxiety F41.9 ; Nausea R11.0 and Primary insomnia F51.01 [place] [id number] [place] [address] 00408- 6369 May, [facility] [address] 31086- 4685 May, Chronic pain G89.29 [place] [address] 41676- 3127 May, [facility] [facility] [id number] [place] [address] 47883- 1233 Apr, Post-traumatic stress disorder, unspecified F43.10 ; Major depressive disorder, recurrent, moderate F33.1 and Problems related to release from correction Z65.2 [place] [id number] [place] [address] 27209- 4800 Apr, Primary insomnia F51.01 ; Post-traumatic stress disorder, chronic F43.12 and Problems related to release from correction Z65.2 [id number] [place] [address] 87340- 4762 Apr, Post-traumatic stress disorder, unspecified F43.10 ; Major depressive disorder, recurrent, moderate F33.1 and Problems related to release from correction Z65.2 [id number] [place] [address] 55648- 7024 16 Apr, 2016 [place] [id number] [place] [address] 88155- 4014 16 Apr, 2016 Sleep apnea, obstructive G47.33 ; Chronic pain G89.29 ; HTN (hypertension) I10 ; Mitral valve prolapse I34.1 ; Shoulder pain, left M25.512 ; Arrhythmia as indication for cardiac pacemaker replacement I49.9 ; Glaucoma H40.9 ; Bilateral headaches R51 ; Environmental allergies Z91.09 ; Primary insomnia F51.01 and Nausea R11.0 [place] [id number] [place] [address] 53877- 2060 Apr, [place] [address] 88565- 4121 Apr, [place] [id number] [place] [address] 14494- 7494 Apr, Post-traumatic stress disorder, unspecified F43.10 ; Major depressive disorder, recurrent, moderate F33.1 and Problems related to release from correction Z65.2 [place] [id number] [place] [address] 21166- 4235 07 Apr, 2016 HTN (hypertension) I10 [place] [address] [place] [id number] [place] [address] 09225- 9135 07 Apr, 2016 HTN (hypertension) I10 [place] [address] [place] [id number] [place] [address] 67020- 5254 14 Mar, 2016 Chronic pain G89.29 ; Primary insomnia F51.01 and Problems related to release from correction Z65.2 [place] [id number] [place] [address] [phone] 07 Mar, 2016 Post-traumatic stress disorder, unspecified F43.10 ; Major depressive disorder, recurrent, moderate F33.1 and Problems related to release from correction Z65.2 [place] [id number] [place] [address] 22807- 2746 Feb, Post-traumatic stress disorder, unspecified F43.10 ; Major depressive disorder, recurrent, moderate F33.1 and Problems related to release from correction Z65.2 [facility] [id number] [place] [address] 00603- 7315 Feb, Chronic tension headaches G44.229 [facility] [id number] [place] [address] 57946- 2774 Feb, Sleep apnea, obstructive G47.33 ; Obesity [...] pacemaker replacement I49.9 and Primary insomnia F51.01 [place] [address] 69585- 5238 Feb, Post-traumatic stress disorder, unspecified F43.10 and Chronic pain G89.29 [place] [address] 04468- 1452 Feb, [facility] [address] [id number] Feb, Dental caries K02.9 [place] [address] 73153- 7003 Feb, [place] [address] 47280- 2239 Feb, Post-traumatic stress disorder, unspecified F43.10 ; Major depressive disorder, recurrent, moderate F33.1 and Problems related to release from correction Z65.2 [place] [id number] [place] [address] 41263- 5704 Jan, Sleep apnea, obstructive G47.33 and Chronic pain G89.29 [facility] [address] 73589- 1042 Jan, [place] [address] [address] 9[address] 14 Jan, 2016 Dental examination Z01.20 [place] [id number] [place] [address] 47811- 1218 Jan, [place] [id number] [place] [address] 58962- 9131 Jan, [place] [id number] [place] [address] 48824- 9004 Dec, Post-traumatic stress disorder, unspecified F43.10 ; Major depressive disorder, recurrent, moderate F33.1 and Problems related to release from correction Z65.2 [place] [id number] [place] [address] 96296- 3679 Dec, Encounter for immunization Z23 ; Problems related to release from correction Z65.2 ; Sleep apnea, obstructive G47.33 and Post-traumatic stress disorder, chronic F43.12 [place] [id number] [place] [address] 21529- 9768 18 Dec, 2015 Sleep apnea, obstructive G47.33 ; Hyperlipidemia E78.5 ; Chronic pain G89.29 ; Glaucoma H40.9 ; HTN (hypertension) I10 ; Post-traumatic stress disorder, unspecified F43.10 ; Anxiety F41.9 ; Chronic tension headaches G44.229 ; Mitral valve prolapse I34.1 and CAD (coronary artery disease) I25.10 [place] [address] [address] 2752 15 Dec, 2015 Post-traumatic stress disorder, unspecified F43.10 ; Major depressive disorder, recurrent, moderate F33.1 and Problems related to release from correction Z65.2 [address] [place] [address] 40695- 2414 Nov, Chronic pain G89.29 [address] [place] [address] 86708- 9527 Nov, Post-traumatic stress disorder, unspecified F43.10 ; Major depressive disorder, recurrent, moderate F33.1 and Problems related to release from correction Z65.2 [facility] [id number] [place] [address] 93014- 6183 Oct, [facility] [id number] [place] [address] 29114- 8526 Oct, [facility] [id number] [place] [address] 52178- 8020 Oct, Post-traumatic stress disorder, unspecified F43.10 ; Major depressive disorder, recurrent, moderate F33.1 and Problems related to release from correction Z65.2 [place] [id number] [place] [address] 19279- 5900 08 Oct, 2015 [facility] [id number] [place] [address] 77921- 9932 07 Oct, 2015 Environmental allergies Z91.09 ; Cough R05 and 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 [place] [id number] [place] [address] 45161- 6484 Sep, [place] [id number] [place] [address] 55233- 4557 Sep, Post-traumatic stress disorder, unspecified F43.10 ; Major depressive disorder, recurrent, moderate F33.1 and Problems related to release from correction Z65.2 [place] [id number] [place] [address] 29122- 2519 Sep, Chronic pain G89.29 [place] [id number] [place] [address] 15209- 3935 Sep, Pain in left shoulder M25.512 ; Pain in right shoulder M25.511 and Other chronic pain G89.29 [place] [id number] [place] [address] 72731- 8219 Sep, [place] [id number] [place] [address] 11036- 8423 Sep, [facility] [address], [place] [address] 0323 Sep, [facility] [id number] [place] [address] [id number] Aug, Dental examination Z01.20 [facility] [id number] [place] [address] 81828- 4571 Aug, Post-traumatic stress disorder, unspecified F43.10 ; Open- angle glaucoma of both 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 and Problems related to release from correction Z65.2 [facility] [id number] [place] [address] 64828- 8769 Aug, [facility] [id number] [place] [address] 03570- 9593 Aug, Sleep apnea, obstructive G47.33 ; Obesity E66.9 ; Hyperlipidemia E78.5 ; Bilateral headaches R51 ; HTN (hypertension) I10 ; Post- traumatic stress disorder, unspecified F43.10 ; Anxiety F41.9 ; Neuropathy G62.9 ; Glaucoma H40.9 and Chronic pain G89.29 [facility] [id number] [place] [address] [id number] Aug, Encounter for dental examination Z01.20 [facility] [address], [place] [address]- 9774 Aug, Post-traumatic stress disorder, unspecified F43.10 ; Major depressive disorder, recurrent, moderate F33.1 and Problems related to release from correction Z65.2 [facility] [address], [place] [address]- 2987 Aug, [facility] [id number] [place] [address] 59381- 6086 Jul, [facility] [address], [place] [address]- 0341 Jul, Post-traumatic stress disorder, unspecified F43.10 and Major depressive disorder, recurrent, moderate F33.1 [facility] [address], [place] [address]- 6525 Jul, [facility] [id number] [place] [address] 27695- 6759 Jul, [facility] [address], [place] [address]- 9203 Jul, Chronic pain G89.29 [facility] [id number] [place] [address] 60270- 5490 June, Post-traumatic stress disorder, unspecified F43.10 and Major depressive disorder, recurrent, moderate F33.1 [facility] [id number] [place] [address] 73412- 5907 June, [facility] [id number] [place] [address] 77200- 8866 June, Chronic pain G89.29 [facility] [id number] [place] [address] 73846- 6816 June, Post-traumatic stress disorder, unspecified F43.10 and Major depressive disorder, recurrent, moderate F33.1 [facility] [id number] [place] [address] 19230- 3249 May, Post-traumatic stress disorder, unspecified F43.10 and Major depressive disorder, recurrent, moderate F33.1 [facility] [address], [place] [address]- 3345 May, [facility] [address], [place] [address]- 6730 May, [facility] [id number] [place] [address] 85647- 0197 May, [facility] [id number] 0329 Apr, [facility] [id number] [place] [address] 03879- 3346 Apr, Post-traumatic stress disorder, unspecified F43.10 and Sleep apnea, obstructive G47.33 [facility] [id number] [place] [address] 21565- 1037 Apr, [facility] [id number] [place] [address] 99709- 4705 Apr, Shoulder pain, left M25.512 [facility] [address] 51332- 9719 Apr, Post-traumatic stress disorder, unspecified F43.10 and Major depressive disorder, recurrent, moderate F33.1 [facility] [address] 98730- 6659 17 Apr, 2015 [facility] [id number] [place] [address] 56395- 1226 Apr, [facility] [address] 82895- 1208 Apr, [facility] [id number] [place] [address] 57981- 8389 Apr, Left shoulder pain M25.512 [facility] [id number] [place] [address] 17532- 3235 Mar, [facility] [id number] [place] [address] 57466- 7937 Mar, [facility] [id number] [place] [address] 92592- 9927 Mar, [facility] [id number] [place] [address] 08993- 8378 12 Mar, 2015 Sleep apnea, obstructive G47.33 ; Obesity E66.9 ; Chronic pain G89.29 ; Hyperlipidemia E78.5 ; HTN (hypertension) I10 ; Blindness and low vision H54.10 ; Major depressive disorder, recurrent, moderate F33.1 and Anxiety F41.9 [facility] [id number] [place] [address] 07923- 3687 Mar, [place] [id number] [place] [address]- 5165 Mar, Post-traumatic stress disorder, unspecified F43.10 and Major depressive disorder, recurrent, moderate F33.1 [place] [id number] [place] [address] 66139- 2638 Mar, [place] [address]643- 5421 Mar, HTN (hypertension) I10 ; Blindness and low vision H54.10 ; Obesity E66.9 ; Hyperlipidemia E78.5 ; Glaucoma H40.9 ; Chronic pain G89.29 and CAD (coronary artery disease) I25.10 [place] [id number] [place] [address] 66910- 9922 Feb, [place] [address]- 2746 Feb, Post-traumatic stress disorder, unspecified F43.10 ; Obesity E66.9 ; Sleep apnea, obstructive G47.33 and 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 [place] [id number] [place] [address] 60935- 7535 Feb, Post-traumatic stress disorder, unspecified F43.10 and Major depressive disorder, recurrent, moderate F33.1 [place] [id number] [place] [address] 11031- 9772 Feb, [place] [id number] [place] [address] 20279- 2311 Feb, [place] [address]- 3482 Feb, HTN (hypertension) I10 ; Post-traumatic stress disorder, unspecified F43.10 ; Blindness and low vision H54.10 ; Obesity E66.9 ; Hyperlipidemia E78.5 ; Chronic pain G89.29 ; Glaucoma H40.9 ; Mitral valve prolapse I34.1 and Bilateral headaches R51 [place] [id number] [place] [address] 56067- 3633 Feb, [place] [id number] [place] [address] 69627- 9729 Feb, Post-traumatic stress disorder, unspecified F43.10 and Major depressive disorder, recurrent, moderate F33.1 [place] [address] 90190- 5244 Feb, [place] [id number] [place] [address] 57323- 8433 Feb, [place] [address] 61351- 2163 Jan, [place] [address] 60437- 7427 Jan, [place] [address] 87035- 4525 Jan, Obesity E66.9 ; HTN (hypertension) I10 ; Blindness and low vision H54.10 ; Major depressive disorder, recurrent, moderate F33.1 ; Glaucoma H40.9 ; Hyperlipidemia E78.5 ; Sleep apnea, obstructive G47.33 ; Chronic pain G89.29 ; Anxiety F41.9 ; Chronic tension headaches G44.229 and Cough R05 [place] [id number] [place] [address] 28694- 8177 Jan, [place] [id number] [place] [address] 67487- 6166 Jan, [place] [id number] [place] [address] 43954- 3210 Jan, Post-traumatic stress disorder, unspecified F43.10 ; Obesity E66.9 ; Sleep apnea, obstructive G47.33 and 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 [place] [id number] [place] [address] 22307- 9103 Jan, [place] [id number] [place] [address] 54491- 4244 Jan, Post-traumatic stress disorder, unspecified F43.10 and Major depressive disorder, recurrent, moderate F33.1 [place] [address] 42871- 6362 Dec, [address] 079340- 3682 Dec, Sleep apnea, obstructive G47.33 ; Obesity E66.9 ; Hyperlipidemia E78.5 ; Glaucoma H40.9 ; Chronic pain G89.29 ; HTN (hypertension ) I10 ; Blindness and low vision H54.10 ; Anxiety F41.9 and CAD (coronary artery disease) I25.[address] 93874- 0537 Nov, [address] 58067- 3792 Nov, [place] [address] 36267- 4953 Nov, [address] 21033- 3095 Nov, [place] [address] 91174- 8124 Nov, [address] 09763- 1398 Nov, Encounter for immunization Z23 ; Sleep apnea, obstructive G47.33 ; Obesity E66.9 ; Hyperlipidemia E78.5 ; Glaucoma H40.9 ; Chronic pain G89.29 ; Anxiety F41.9 ; Chronic tension headaches G44.229 and HTN (hypertension ) I10 [address] 65674- 9362 Nov, [address] 30680- 1323 Nov, [facility] [address], [place] [address]- 1619 06 Nov, 2014 Dizziness R42 [facility] [id number] [place] [address] 61888- 4635 Nov, [facility] [id number] [place] [address] 34964- 3288 Oct, [facility] [id number] [place] [address] 57073- 0075 Oct, [facility] [id number] [place] [address] 40027- 8765 Oct, [facility] [id number] [place] [address] 47863- 8596 Oct, [facility] [id number] [place] [address] 47644- 5073 Oct, Dizziness 780.4 ; Essential hypertension 401.9 ; Obesity 278.00 ; Hyperlipidemia 272.4 ; Chronic pain 338.29 ; Glaucoma 365.9 and Anxiety 300.00 [facility] [id number] [place] [address] 79186- 5472 Oct, Essential hypertension 401.9 ; Hyperlipidemia 272.4 ; Glaucoma 365.9 ; Obesity 278.00 ; Chronic pain 338.29 and Allergy to insects V15.06 [facility] [address], [place] [address]- 1788 Sep, [facility] [id number] [place] [address] 15034- 5825 Sep, [facility] [id number] [place] [address] 91982- 5171 Sep, [facility] [id number] [place] [address] 91645- 7727 Sep, [facility] [address], [place] [address]- 3920 Aug, Essential hypertension 401.9 ; Obesity 278.00 ; Hyperlipidemia 272.4 ; Glaucoma 365.9 ; Lipoma 214.9 ; Mitral valve prolapse 424.0 ; Angina at rest 413.9 ; Lymphedema 457.1 and Chronic pain 338.29 IMMUNIZATIONS No Known Immunizations SOCIAL HISTORY Never Assessed REASON FOR VISIT f/nafisa Roche RN PLAN OF CARE Activity Details Follow Up 3 Months Reason: VITAL SIGNS Height 67 in 2017-11-02 Weight 268 lbs 2017-11-02 Heart Rate 80 bpm 2017-11-02 Respiratory Rate 20 2017-11-02 BMI 41.97 kg/m2 2017-11-02 Blood pressure systolic 132 mmHg 2017-11-02 Blood pressure diastolic 80 mmHg 2017-11-02 MEDICATIONS Medication Instructions Dosage Frequency Start Date End Date Duration Status Nitrostat 0.4 MG Sublingual every 5 minutes x 3 PRN 1 tablet 30 days Active Topamax 100 MG TAKE ONE TABLET BY MOUTH TWICE DAILY 90 Active Belsomra 10 mg Orally Once a day 1/2 to 1 whole tablet at bedtime as needed for insomnia 24h Oct, Active Hydrocodone-Acetaminophen 7.5-325 MG Orally 4 times a day 1 tablet 6h Oct, Active Methotrexate 2.5 MG 3 tablets once for one week then 4 tablets once for 2 weeks then 6 tablets q7days there after Active EPINEPHrine 0.3 MG/0.3ML as directed Jul, Active Xanax 1 MG Orally Twice a day for anxiety 1 tablet Active Atorvastatin Calcium 40 MG TAKE ONE TABLET BY MOUTH ONCE DAILY Active Zofran ODT 4 MG Orally every 8 hrs prn 1 tablet on the tongue and allow to dissolve 10 Active Cartia XT 300 MG Orally Once a day 1 capsule 24h 90 days Active Losartan Potassium 100 MG Orally Once a day 1 tablet 24h Active Folic Acid 1 MG Orally Once a day 1 tablet 24h Active Metoprolol Succinate ER 200 mg Orally [...]
--- OUTSIDE RECORDS SUMMARY | 2018-02-04 14:09 | XMS REPORT ---
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 Name Role Phone MARISOLLILIA Unavailable PROBLEMS Type Condition ICD9-CM Code UXT18-QQ Code Onset Dates Condition Status SNOMED Code Problem Hyperlipidemia E78.5 Active 16515055 Problem Sleep apnea, obstructive G47.33 Active 25702571 Problem Primary insomnia F51.01 Active 0926783 Problem Chronic pain G89.29 Active 26925755 Problem Morbid (severe) obesity due to excess calories E66.01 Active 954916341 Problem Myocarditis, unspecified chronicity, 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 Active 93263969 Problem Other male erectile dysfunction N52.8 Active 398598693 Problem 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 Active 863337354 Problem Body mass index (BMI) of 40.0-44.9 in adult Z68.41 Active 006372365 Problem Supraventricular tachycardia I47.1 Active 5050854 Problem Insomnia disorder with non-sleep disorder mental comorbidity G47.00 Active 43017621 Problem Chronic tension headaches G44.229 Active 557580414 Problem HTN (hypertension) I10 Active 47271311 Problem Blindness and low vision H54.10 Active 749225244 Problem Chronic pain syndrome G89.4 Active 374899719 Problem Migraine without aura and without status migrainosus, not intractable G43.009 Active 026662129 Problem Sarcoidosis D86.9 Active 06715604 Problem Problems related to release from nursing home Z65.2 Active 653976342987888 Problem 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 Active 10400446 Problem Mitral valve prolapse I34.1 Active 483728489 Problem Anxiety F41.9 Active 35643643 Problem Major depressive disorder, recurrent, moderate F33.1 Active 70997307 Problem Environmental allergies Z91.09 Active 928447251 Problem Arrhythmia as indication for cardiac pacemaker replacement I49.9 Active 12485880 Problem CAD (coronary artery disease) I25.10 Active 49824014 Problem Post-traumatic stress disorder, chronic F43.12 Active 774606447 ALLERGIES No Information ENCOUNTERS Encounter Location Date Diagnosis [facility] [id number] [place] [address] 02981- 8945 Dec, [facility] [id number] [place] [address] 89245- 3037 16 Nov, 2017 [facility] [address] 65119- 6025 Nov, [facility] [id number] [place] [address] 85716- 5832 Nov, Left leg pain M79.605 [facility] [id number] [place] [address] [id number] 28 Oct, 2017 Dental examination Z01.20 [facility] [id number] [place] [address] 11889- 8802 Oct, Insomnia disorder with non-sleep disorder mental comorbidity G47.00 [facility] [id number] [place] [address] 89468- 5724 25 Oct, 2017 Post-traumatic stress disorder, chronic F43.12 ; Insomnia disorder with non-sleep disorder mental comorbidity G47.00 and BMI 40.0-44.9, adult Z68.41 [facility] [id number] [place] [address] 73921- 4744 Oct, [facility] [id number] [place] [address] 15644 -0630 18 Oct, 2017 Insect bite (nonvenomous), left lower leg, initial encounter S80.862A ; Bitten or stung by nonvenomous insect and other nonvenomous arthropods, initial encounter W57.XXXA and BMI 40.0-44.9, adult Z68.41 [facility] [address] [place] [address] 94355- 4401 06 Oct, 2017 Left leg pain M79.605 [facility] [facility] [id number] [place] [address] 10036- 8452 04 Oct, 2017 Post-traumatic stress disorder, unspecified F43.10 ; Major depressive disorder, recurrent, moderate F33.1 and Problems related to release from nursing home Z65.2 [facility] [id number] [place] [address] 91798- 1865 2017 Arrhythmia as indication for cardiac pacemaker replacement I49.9 [facility] [address] 93662- 0885 Sep, [facility] [address] 09751- 5877 Sep, HTN (hypertension) I10 [facility] [id number] [place] [address] 54685- 6210 Sep, [facility] [id number] [place] [address] 62721- 8881 16 Sep, 2017 Body mass index (BMI) of 40.0-44.9 in adult Z68.41 ; Chronic pain G89.29 and Supraventricular tachycardia I47.1 [facility] [id number] [place] [address] 38532- 5193 Sep, [facility] [id number] [place] [address] 88808- 2411 Sep, Sarcoidosis D86.9 [facility] [id number] [place] [address] 73422- 4691 Sep, Sarcoidosis D86.9 [facility] [id number] [place] [address] 65740- 9775 Sep, [facility] [address] 39344- 0909 Sep, [facility] [id number] [place] [address] 74775- 4668 Sep, [facility] [address] 10778- 8293 Sep, [facility] [address] [address]- 0402 Sep, Left leg pain M79.605 [facility] [address] [place] [address]- 1576 Sep, HTN (hypertension) I10 [facility] [id number] [address]- 6546 Sep, [facility] [id number] [place] [address] 69227- 0568 Sep, Post-traumatic stress disorder, unspecified F43.10 ; Major depressive disorder, recurrent, moderate F33.1 and Problems related to release from nursing home Z65.2 [facility] [address] [place] [address]- 5756 Sep, [facility] [id number] [place] [address] 00381- 0456 Aug, [facility] [address] [place] [address] 41375- 6177 Aug, Sarcoidosis D86.9 [facility] [id number] [place] [address] 65112- 4516 Aug, Sarcoidosis D86.9 [facility] [address] [place] [address]- 3906 Aug, HTN (hypertension) I10 [facility] [id number] [place] [address] 07010- 5968 Aug, Post-traumatic stress disorder, unspecified F43.10 ; Major depressive disorder, recurrent, moderate F33.1 and Problems related to release from nursing home Z65.2 [facility] [address] [place] [address] 92035- 7216 Aug, [facility] [address] [place] [address]- 9866 Aug, Left leg pain M79.605 [facility] [id number] [place] [address] 57218- 5301 26 Jul, 2017 Post-traumatic stress disorder, chronic F43.12 ; Anxiety F41.9 ; Problems related to release from nursing home Z65.2 and BMI 40.0-44.9, adult Z68.41 [facility] [address] 00323- 3359 20 Jul, 2017 HTN (hypertension) I10 ; Body mass index (BMI) of 40.0-44.9 in adult Z68.41 ; Acute swimmer''s ear of both sides H60.333 and Chronic pain G89.29 [facility] [address] 27972- 2199 19 Jul, 2017 Glaucoma H40.9 [facility] [address] 28054- 8850 14 Jul, 2017 [facility] [address] 23725- 9433 13 Jul, 2017 Sarcoidosis D86.9 [facility] [facility] [address] 86682- 0664 12 Jul, 2017 Left leg pain M79.605 [facility] [address] 01265- 0355 12 Jul, 2017 Sarcoidosis D86.9 [facility] [address] 97653- 2878 Jul, Post-traumatic stress disorder, unspecified F43.10 ; Major depressive disorder, recurrent, moderate F33.1 and Problems related to release from nursing home Z65.2 [facility] [address] 93461- 9539 June, [facility] [address] 91170 -6245 June, Sore throat J02.9 and BMI 40.0-44.9, adult Z68.41 [facility] [address] [place] [address]- 3994 June, [facility] [address] [address]- 6440 June, [facility] [address] [address] June, [facility] [address] [place] [address] 612837- 0730 June, Left leg pain M79.605 [facility] [id number] [place] [address] 93284- 9457 June, Sarcoidosis D86.9 [facility] [id number] [place] [address] 25889- 2570 June, [facility] [id number] [place] [address] 47053- 1091 June, [facility] [id number] [place] [address] 21947- 7927 June, Left leg pain M79.605 [facility] [address], [place] [address]- 4163 May, [facility] [address] [address]- 0989 May, [facility] [address], [place] [address]- 2158 May, [facility] [address] [place] [address] 71258- 1578 May, Left leg pain M79.605 [facility] [address] [place] [address]- 3979 May, Post-traumatic stress disorder, unspecified F43.10 ; Major depressive disorder, recurrent, moderate F33.1 and Problems related to release from nursing home Z65.2 [facility] [address], [place] [address]- 4701 May, Chronic pain G89.29 ; Anxiety F41.9 ; Chest pain, unspecified type R07.9 and BMI 40.0-44.9, adult Z68.41 [facility] [id number] [place] [address] 17174- 8673 30 Apr, 2017 [facility] [id number] [place] [address] 73549- 5948 Apr, Left leg pain M79.605 [facility] [facility] [address] 73302- 5364 27 Apr, 2017 Post-traumatic stress disorder, unspecified F43.10 ; Problems related to release from nursing home Z65.2 ; Anxiety F41.9 and BMI 40.0-44.9 , adult Z68.41 [facility] [id number] [place] [address] 62499- 6795 Apr, [facility] [id number] [place] [address] 59262- 2767 19 Apr, 2017 Left leg pain M79.605 [facility] [id number] [place] [address] 17495- 0487 13 Apr, 2017 Post-traumatic stress disorder, unspecified F43.10 ; Major depressive disorder, recurrent, moderate F33.1 and Problems related to release from nursing home Z65.2 [facility] [address] [place] [address] 17286- 5287 Apr, [facility] [id number] [place] [address] 93626- 8914 Apr, Chronic pain G89.29 ; 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 ; Morbid (severe) obesity due to excess calories E66.01 ; Anxiety F41.9 and BMI 40.0-44.9, adult Z68.41 [facility] [address] [place] [address] 79904 -2157 Apr, Sore throat J02.9 and BMI 40.0-44.9, adult Z68.41 [facility] [id number] [place] [address] 75282- 7378 Apr, Left leg pain M79.605 [facility] [id number] [place] [address] [id number] 28 Mar, 2017 Dental examination Z01.20 [facility] [id number] [place] [address] 99858- 0685 Mar, [facility] [address] 02631 -5232 Mar, Cough R05 ; Viral gastroenteritis A08.4 and BMI 40.0-44.9, adult Z68.41 [facility] [address] 30889- 5001 Mar, Left leg pain M79.605 [facility] [address] 26955- 0747 Mar, Post-traumatic stress disorder, unspecified F43.10 ; Major depressive disorder, recurrent, moderate F33.1 and Problems related to release from nursing home Z65.2 [facility] [facility] [address] 10016- 6103 Feb, Left leg pain M79.605 [facility] [id number] [place] [address] 00156- 8446 Feb, [facility] [facility] [address] 83836- 0302 Feb, BMI 40.0-44.9, adult Z68.41 ; Chronic pain syndrome G89.4 ; Migraine without aura and without status migrainosus, not intractable G43.009 ; Mitral valve prolapse I34.1 and 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 [facility] [id number] [place] [address] 34457- 8993 Feb, Post-traumatic stress disorder, chronic F43.12 ; Anxiety F41.9 ; Problems related to release from nursing home Z65.2 and BMI 40.0-44.9, adult Z68.41 [facility] [address] [place] [address] 02480- 3454 Feb, Post-traumatic stress disorder, unspecified F43.10 ; Major depressive disorder, recurrent, moderate F33.1 and Problems related to release from nursing home Z65.2 [facility] [address] [place] [address] 01142- 4807 Feb, Left leg pain M79.605 [facility] [id number] [place] [address] 37594- 1376 Jan, Post-traumatic stress disorder, unspecified F43.10 ; Major depressive disorder, recurrent, moderate F33.1 and Problems related to release from nursing home Z65.2 [facility] [id number] [place] [address] 55928- 9026 Jan, [facility] [id number] [place] [address] 34003- 7842 Jan, [facility] [id number] [place] [address] 31145- 2906 Jan, Anxiety F41.9 [facility] [id number] [place] [address] 28111- 9452 Jan, Left leg pain M79.605 [facility] [address] [place] [address] 18653- 0446 Dec, Left leg pain M79.605 [facility] [id number] [place] [address] 02669- 8526 Dec, [facility] [id number] [place] [address] 46911- 3023 15 Dec, 2016 Post-traumatic stress disorder, unspecified F43.10 ; Major depressive disorder, recurrent, moderate F33.1 and Problems related to release from nursing home Z65.2 [facility] [address] [place] [address] 96960- 1355 Nov, Chronic pain G89.29 and Anxiety F41.9 [facility] [address] [place] [address] 01210- 3606 24 Nov, 2016 Chronic pain G89.29 and Anxiety F41.9 [facility] [address] 5[address]1769- 8988 16 Nov, 2016 Post-traumatic stress disorder, unspecified F43.10 ; Major depressive disorder, recurrent, moderate F33.1 and Problems related to release from nursing home Z65.2 [facility] [address] 50104- 8799 09 Nov, 2016 Other abnormal findings in specimens from other organs, systems and tissues R89.8 ; Other male erectile dysfunction N52.8 ; Body mass index (BMI) of 40.0-44.9 in adult Z68.41 and Morbid (severe) obesity due to excess calories E66.[address] 82830- 7043 02 Nov, 2016 Post-traumatic stress disorder, unspecified F43.10 ; Major depressive disorder, recurrent, moderate F33.1 and Problems related to release from nursing home Z65.2 [facility] [address] [id number] Oct, Dental examination Z01.20 [facility] [id number] [place] [address] 17392- 5097 Oct, [facility] [address] 16072- 6095 28 Oct, 2016 Encounter for immunization Z23 [facility] [id number] [place] [address] 47929- 2053 Oct, Chronic pain G89.29 ; Anxiety F41.9 ; Arrhythmia as indication for cardiac pacemaker replacement I49.9 and Glaucoma H40.9 [facility] [id number] [place] [address] 30365- 8300 Oct, Anxiety F41.9 ; Post-traumatic stress disorder, chronic F43.12 and Problems related to release from nursing home Z65.2 [facility] [address], [place] [address]- 6020 07 Oct, 2016 Post-traumatic stress disorder, unspecified F43.10 ; Major depressive disorder, recurrent, moderate F33.1 and Problems related to release from nursing home Z65.2 [facility] [address], [place] [address]- 6045 Sep, Chronic pain G89.29 and Anxiety F41.9 [place] [address] [place] [address] 88813- 9187 Sep, Post-traumatic stress disorder, unspecified F43.10 ; Major depressive disorder, recurrent, moderate F33.1 and Problems related to release from nursing home Z65.2 [facility] [id number] [place] [address] 83577- 2821 Sep, Post-traumatic stress disorder, unspecified F43.10 ; Major depressive disorder, recurrent, moderate F33.1 and Problems related to release from nursing home Z65.2 [facility] [place] [id number] [place] [address] 56370- 7957 Sep, Chronic pain G89.29 [place] [id number] [place] [address] 76257- 1071 Aug, Dental caries, unspecified K02.[address] [place] [address] 99297- 0740 Aug, Sleep apnea, obstructive G47.33 ; Obesity E66.9 ; Chronic pain G89.29 ; HTN (hypertension) I10 ; Major depressive disorder, recurrent, moderate F33.1 ; Anxiety F41.9 ; Chronic tension headaches G44.229 ; Mitral valve prolapse I34.1 ; Arrhythmia as indication for cardiac pacemaker replacement I49.9 ; Dental caries, unspecified K02.9 ; Primary insomnia F51.01 and Hyperlipidemia E78.5 [address] [place] [address]- 6442 Aug, Post-traumatic stress disorder, unspecified F43.10 ; Major depressive disorder, recurrent, moderate F33.1 and Problems related to release from nursing home Z65.2 [facility] [address], [place] [address]- 3201 20 Aug, 2016 Dental examination Z01.20 [facility] [address] [address] 13 Aug, 2016 Dental examination Z01.20 [facility] [id number] [place] [address] 42354- 5050 06 Aug, 2016 Post-traumatic stress disorder, unspecified F43.10 ; Major depressive disorder, recurrent, moderate F33.1 and Problems related to release from nursing home Z65.2 [facility] [id number] [place] [address] 63602- 7774 05 Aug, 2016 Chronic pain G89.29 and Primary insomnia F51.01 [facility] [id number] [place] [address] 88701- 3701 30 Jul, 2016 [facility] [id number] [place] [address] 93048- 9736 30 Jul, 2016 [facility] [id number] [place] [address] 78826- 0060 Jul, Nausea R11.0 [facility] [id number] [place] [address] 56978- 6761 Jul, Arrhythmia as indication for cardiac pacemaker replacement I49.9 [facility] [id number] [place] [address] 92722- 9030 Jul, Post-traumatic stress disorder, unspecified F43.10 ; Major depressive disorder, recurrent, moderate F33.1 and Problems related to release from nursing home Z65.2 [facility] [id number] [place] [address] 69361- 8919 09 Jul, 2016 Anxiety F41.9 [facility] [id number] [place] [address] 93603- 8901 08 Jul, 2016 Chronic pain G89.29 [facility] [address] [place] [address]- 6434 Jul, Sleep apnea, obstructive G47.33 ; Hyperlipidemia E78.5 ; Chronic pain G89.29 ; Blindness and low vision H54.10 ; Major depressive disorder, recurrent, moderate F33.1 ; Anxiety F41.9 ; Mitral valve prolapse I34.1 ; Arrhythmia as indication for cardiac pacemaker replacement I49.9 ; Primary insomnia F51.01 ; Bilateral headaches R51 and Environmental allergies Z91.09 [place] [address] 41498- 7269 Jul, Post-traumatic stress disorder, unspecified F43.10 ; Major depressive disorder, recurrent, moderate F33.1 and Problems related to release from nursing home Z65.2 [facility] [facility] [address] 86960- 9471 June, Post-traumatic stress disorder, chronic F43.12 ; Anxiety F41.9 ; Problems related to release from nursing home Z65.2 ; Sleep apnea, obstructive G47.33 and Primary insomnia F51.01 [facility] [id number] [place] [address] 43934- 2639 June, [facility] [facility] [address] 56369- 4499 June, [facility] [id number] [place] [address] 73571- 5456 June, [facility] [id number] [place] [address] 73898- 1411 June, Chronic pain G89.29 [facility] [id number] [place] [address] 23442- 9252 June, Chronic pain G89.29 [facility] [address] 80620- 1382 June, Lipoma of left lower extremity D17.24 ; Open wound T14.8 and Swelling of left lower extremity M79.89 [facility] [address] 27055- 6827 June, Post-traumatic stress disorder, unspecified F43.10 ; Major depressive disorder, recurrent, moderate F33.1 and Problems related to release from nursing home Z65.2 [facility] [id number] [place] [address] 87984- 9899 May, Lipoma of left lower extremity D17.24 ; Major depressive disorder, recurrent, moderate F33.1 ; Sleep apnea, obstructive G47.33 ; Hyperlipidemia E78.5 ; Obesity E66.9 ; HTN (hypertension) I10 ; Glaucoma H40.9 ; CAD (coronary artery disease) I25.10 ; Chronic tension headaches G44.229 ; Chronic pain G89.29 ; Anxiety F41.9 ; Nausea R11.0 and Primary insomnia F51.01 [facility] [facility] [id number] [place] [address] 93663- 0155 May, [facility] [facility] [address] 11525- 4889 May, Chronic pain G89.29 [place] [address] 30191- 3916 May, [place] [address] [place] [id number] [place] [address] [phone]- [address] Apr, Post-traumatic stress disorder, unspecified F43.10 ; Major depressive disorder, recurrent, moderate F33.1 and Problems related to release from nursing home Z65.2 [place] [address] [place] [id number] [place] [phone]- [address] Apr, Primary insomnia F51.01 ; Post-traumatic stress disorder, chronic F43.12 and Problems related to release from nursing home Z65.2 [place] [id number] [place] [address] 17010- [address] Apr, Post-traumatic stress disorder, unspecified F43.10 ; Major depressive disorder, recurrent, moderate F33.1 and Problems related to release from nursing home Z65.2 [place] [id number] [place] [address] [phone]- [address]898 16 Apr, 2016 [place] [id number] [place] [id number] [place] [address] 29704- [address]136 16 Apr, 2016 Sleep apnea, obstructive G47.33 ; Chronic pain G89.29 ; HTN (hypertension) I10 ; Mitral valve prolapse I34.1 ; Shoulder pain, left M25.512 ; Arrhythmia as indication for cardiac pacemaker replacement I49.9 ; Glaucoma H40.9 ; Bilateral headaches R51 ; Environmental allergies Z91.09 ; Primary insomnia F51.01 and Nausea R11.0 [place] [id number] [place] [address] 68708- 4875 Apr, [place] [address] 90319- 6907 Apr, [place] [id number] [place] [address] 88028- 9266 Apr, Post-traumatic stress disorder, unspecified F43.10 ; Major depressive disorder, recurrent, moderate F33.1 and Problems related to release from nursing home Z65.2 [place] [id number] [place] [address] 81692- 0207 07 Apr, 2016 HTN (hypertension) I10 [place] [id number] [place] [address] 45411- 9583 07 Apr, 2016 HTN (hypertension) I10 [place] [id number] [place] [address] 13212- 7140 14 Mar, 2016 Chronic pain G89.29 ; Primary insomnia F51.01 and Problems related to release from nursing home Z65.2 [place] [address] [place] [address] 89029- 3784 07 Mar, 2016 Post-traumatic stress disorder, unspecified F43.10 ; Major depressive disorder, recurrent, moderate F33.1 and Problems related to release from nursing home Z65.2 [place] [address] [place] [address] 06534- 7858 Feb, Post-traumatic stress disorder, unspecified F43.10 ; Major depressive disorder, recurrent, moderate F33.1 and Problems related to release from nursing home Z65.2 [facility] [id number] [place] [address] 76471- 6737 Feb, Chronic tension headaches G44.229 [facility] [id number] [place] [address] 17529- 1091 Feb, Sleep apnea, obstructive G47.33 ; Obesity [...] pacemaker replacement I49.9 and Primary insomnia F51.01 [place] [address] 39813- 1254 Feb, Post-traumatic stress disorder, unspecified F43.10 and Chronic pain G89.29 [place] [address] 44920- 9422 Feb, [facility] [address] [id number] Feb, Dental caries K02.9 [place] [address] 85236- 1502 Feb, [place] [address] 49615- 3766 Feb, Post-traumatic stress disorder, unspecified F43.10 ; Major depressive disorder, recurrent, moderate F33.1 and Problems related to release from nursing home Z65.2 [place] [id number] [place] [address] 77677- 2987 Jan, Sleep apnea, obstructive G47.33 and Chronic pain G89.29 [facility] [address] 94212- 0449 Jan, [place] [address] [address] 7146 14 Jan, 2016 Dental examination Z01.20 [place] [id number] [place] [address] 51703- 9823 Jan, [place] [id number] [place] [address] 05100- 7428 Jan, [place] [id number] [place] [address] 88429- 1615 Dec, Post-traumatic stress disorder, unspecified F43.10 ; Major depressive disorder, recurrent, moderate F33.1 and Problems related to release from nursing home Z65.2 [place] [id number] [place] [address] 71833- 3743 Dec, Encounter for immunization Z23 ; Problems related to release from nursing home Z65.2 ; Sleep apnea, obstructive G47.33 and Post-traumatic stress disorder, chronic F43.12 [place] [id number] [place] [address] 60739- 4282 18 Dec, 2015 Sleep apnea, obstructive G47.33 ; Hyperlipidemia E78.5 ; Chronic pain G89.29 ; Glaucoma H40.9 ; HTN (hypertension) I10 ; Post-traumatic stress disorder, unspecified F43.10 ; Anxiety F41.9 ; Chronic tension headaches G44.229 ; Mitral valve prolapse I34.1 and CAD (coronary artery disease) I25.10 [place] [address] [address] 7185 15 Dec, 2015 Post-traumatic stress disorder, unspecified F43.10 ; Major depressive disorder, recurrent, moderate F33.1 and Problems related to release from nursing home Z65.2 [address] [place] [address] 73874- 2269 Nov, Chronic pain G89.29 [address] [place] [address] 76808- 8277 Nov, Post-traumatic stress disorder, unspecified F43.10 ; Major depressive disorder, recurrent, moderate F33.1 and Problems related to release from nursing home Z65.2 [facility] [id number] [place] [address] 55551- 9872 Oct, [facility] [id number] [place] [address] 31081- 6332 Oct, [facility] [id number] [place] [address] 38624- 0028 Oct, Post-traumatic stress disorder, unspecified F43.10 ; Major depressive disorder, recurrent, moderate F33.1 and Problems related to release from nursing home Z65.2 [place] [id number] [place] [address] 41591- 8749 08 Oct, 2015 [facility] [id number] [place] [address] 61680- 3672 07 Oct, 2015 Environmental allergies Z91.09 ; Cough R05 and 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 [place] [id number] [place] [address] 40855- 9950 Sep, [place] [id number] [place] [address] 60868- 4847 Sep, Post-traumatic stress disorder, unspecified F43.10 ; Major depressive disorder, recurrent, moderate F33.1 and Problems related to release from nursing home Z65.2 [place] [id number] [place] [address] 74797- 3403 Sep, Chronic pain G89.29 [place] [id number] [place] [address] 73074- 8199 Sep, Pain in left shoulder M25.512 ; Pain in right shoulder M25.511 and Other chronic pain G89.29 [place] [address] [place] [address] 58009- 9522 Sep, [place] [id number] [place] [address] 62006- 4209 Sep, [facility] [address] [address]- 5729 Sep, [facility] [id number] [place] [address] [id number] Aug, Dental examination Z01.20 [facility] [id number] [place] [address] 29022- 0453 Aug, Post-traumatic stress disorder, unspecified F43.10 ; Open- angle glaucoma of both 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 and Problems related to release from nursing home Z65.2 [facility] [id number] [place] [address] 57849- 6052 Aug, [facility] [id number] [place] [address] 62937- 5663 Aug, Sleep apnea, obstructive G47.33 ; Obesity E66.9 ; Hyperlipidemia E78.5 ; Bilateral headaches R51 ; HTN (hypertension) I10 ; Post- traumatic stress disorder, unspecified F43.10 ; Anxiety F41.9 ; Neuropathy G62.9 ; Glaucoma H40.9 and Chronic pain G89.29 [facility] [id number] [place] [address] [id number] Aug, Encounter for dental examination Z01.20 [facility] [address], [place] [address]- 0098 Aug, Post-traumatic stress disorder, unspecified F43.10 ; Major depressive disorder, recurrent, moderate F33.1 and Problems related to release from nursing home Z65.2 [facility] [address], [place] [address]- 5369 Aug, [facility] [id number] [place] [address] 56939- 2504 Jul, [facility] [address], [place] [address]- 6989 Jul, Post-traumatic stress disorder, unspecified F43.10 and Major depressive disorder, recurrent, moderate F33.1 [facility] [address], [place] [address]- 3402 Jul, [facility] [id number] [place] [address] 26948- 5764 Jul, [facility] [address], [place] [address]- 0788 Jul, Chronic pain G89.29 [facility] [id number] [place] [address] 72052- 1413 June, Post-traumatic stress disorder, unspecified F43.10 and Major depressive disorder, recurrent, moderate F33.1 [facility] [id number] [place] [address] 61814- 8323 June, [facility] [id number] [place] [address] 15032- 3967 June, Chronic pain G89.29 [facility] [id number] [place] [address] 48346- 3462 June, Post-traumatic stress disorder, unspecified F43.10 and Major depressive disorder, recurrent, moderate F33.1 [facility] [id number] [place] [address] 42468- 5019 May, Post-traumatic stress disorder, unspecified F43.10 and Major depressive disorder, recurrent, moderate F33.1 [facility] [address], [place] [address]- 5792 May, [facility] [address], [place] [address]- 4595 May, [facility] [id number] [place] [address] 68474- 1316 May, [facility] [address] 7833 Apr, [facility] [id number] [place] [address] 57609- 6430 Apr, Post-traumatic stress disorder, unspecified F43.10 and Sleep apnea, obstructive G47.33 [facility] [id number] [place] [address] 44460- 3335 Apr, [facility] [id number] [place] [address] 50722- 3318 Apr, Shoulder pain, left M25.512 [facility] [address] 79187- 7563 Apr, Post-traumatic stress disorder, unspecified F43.10 and Major depressive disorder, recurrent, moderate F33.1 [facility] [address] 98242- 8085 17 Apr, 2015 [facility] [id number] [place] [address] 85451- 1697 Apr, [facility] [address] 10750- 1712 Apr, [facility] [id number] [place] [address] 74518- 2925 Apr, Left shoulder pain M25.512 [facility] [id number] [place] [address] 40199- 1221 Mar, [facility] [id number] [place] [address] 20396- 7150 Mar, [facility] [id number] [place] [address] 03536- 9846 Mar, [facility] [id number] [place] [address] 09240- 5329 12 Mar, 2015 Sleep apnea, obstructive G47.33 ; Obesity E66.9 ; Chronic pain G89.29 ; Hyperlipidemia E78.5 ; HTN (hypertension) I10 ; Blindness and low vision H54.10 ; Major depressive disorder, recurrent, moderate F33.1 and Anxiety F41.9 [facility] [id number] [place] [address] 22222- 6891 Mar, [place] [id number] [place]- 8363 Mar, Post-traumatic stress disorder, unspecified F43.10 and Major depressive disorder, recurrent, moderate F33.1 [place] [id number] [place] [address] 96133- 3170 Mar, [place] [address]- 7773 Mar, HTN (hypertension) I10 ; Blindness and low vision H54.10 ; Obesity E66.9 ; Hyperlipidemia E78.5 ; Glaucoma H40.9 ; Chronic pain G89.29 and CAD (coronary artery disease) I25.10 [place] [id number] [place] [address] 76019- 3215 Feb, [place] [address]- 2687 Feb, Post-traumatic stress disorder, unspecified F43.10 ; Obesity E66.9 ; Sleep apnea, obstructive G47.33 and 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 [place] [id number] [place] [address] 93663- 0768 Feb, Post-traumatic stress disorder, unspecified F43.10 and Major depressive disorder, recurrent, moderate F33.1 [place] [id number] [place] [address] 56595- 9867 Feb, [place] [id number] [place] [address] 07801- 1955 Feb, [place] [address]- 9274 Feb, HTN (hypertension) I10 ; Post-traumatic stress disorder, unspecified F43.10 ; Blindness and low vision H54.10 ; Obesity E66.9 ; Hyperlipidemia E78.5 ; Chronic pain G89.29 ; Glaucoma H40.9 ; Mitral valve prolapse I34.1 and Bilateral headaches R51 [place] [id number] [place] [address] 16785- 4889 Feb, [place] [id number] [place] [address] 30888- 2274 Feb, Post-traumatic stress disorder, unspecified F43.10 and Major depressive disorder, recurrent, moderate F33.1 [place] [address] 99487- 5296 Feb, [place] [id number] [place] [address] 02502- 4128 Feb, [place] [address] 67608- 1993 Jan, [place] [address] 03384- 1105 Jan, [place] [address] 93137- 8425 Jan, Obesity E66.9 ; HTN (hypertension) I10 ; Blindness and low vision H54.10 ; Major depressive disorder, recurrent, moderate F33.1 ; Glaucoma H40.9 ; Hyperlipidemia E78.5 ; Sleep apnea, obstructive G47.33 ; Chronic pain G89.29 ; Anxiety F41.9 ; Chronic tension headaches G44.229 and Cough R05 [place] [id number] [place] [address] 40018- 7642 Jan, [place] [id number] [place] [address] 08843- 4783 Jan, [place] [id number] [place] [address] 82055- 2975 Jan, Post-traumatic stress disorder, unspecified F43.10 ; Obesity E66.9 ; Sleep apnea, obstructive G47.33 and 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 [place] [id number] [place] [address] 97494- 9841 Jan, [place] [id number] [place] [address] 40894- 3626 Jan, Post-traumatic stress disorder, unspecified F43.10 and Major depressive disorder, recurrent, moderate F33.1 [place] [address] 53991- 1525 Dec, [address] 394630- 2210 Dec, Sleep apnea, obstructive G47.33 ; Obesity E66.9 ; Hyperlipidemia E78.5 ; Glaucoma H40.9 ; Chronic pain G89.29 ; HTN (hypertension ) I10 ; Blindness and low vision H54.10 ; Anxiety F41.9 and CAD (coronary artery disease) I25.[address] 23381- 2435 Nov, [address] 60194- 8898 Nov, [place] [address] 29062- 1934 Nov, [address] 58247- 9245 Nov, [place] [address] 45751- 8173 Nov, [address] 55901- 1931 Nov, Encounter for immunization Z23 ; Sleep apnea, obstructive G47.33 ; Obesity E66.9 ; Hyperlipidemia E78.5 ; Glaucoma H40.9 ; Chronic pain G89.29 ; Anxiety F41.9 ; Chronic tension headaches G44.229 and HTN (hypertension ) I10 [address] 25997- 6958 Nov, [address] 38505- 7218 Nov, [facility] [address], [place] [address]- 8879 06 Nov, 2014 Dizziness R42 [facility] [id number] [place] [address] 31125- 4855 Nov, [facility] [id number] [place] [address] 34427- 9530 Oct, [facility] [id number] [place] [address] 01389- 4245 Oct, [facility] [id number] [place] [address] 31681- 7257 Oct, [facility] [id number] [place] [address] 85847- 5423 Oct, [facility] [id number] [place] [address] 72524- 7539 Oct, Dizziness 780.4 ; Essential hypertension 401.9 ; Obesity 278.00 ; Hyperlipidemia 272.4 ; Chronic pain 338.29 ; Glaucoma 365.9 and Anxiety 300.00 [facility] [id number] [place] [address] 74071- 0098 Oct, Essential hypertension 401.9 ; Hyperlipidemia 272.4 ; Glaucoma 365.9 ; Obesity 278.00 ; Chronic pain 338.29 and Allergy to insects V15.06 [facility] [address], [place] [address]- 0711 Sep, [facility] [id number] [place] [address] 21229- 8252 Sep, [facility] [id number] [place] [address] 92193- 7197 Sep, [facility] [id number] [place] [address] 58119- 4218 Sep, [facility] [address], [place] [address]- 3306 Aug, Essential hypertension 401.9 ; Obesity 278.00 ; Hyperlipidemia 272.4 ; Glaucoma 365.9 ; Lipoma 214.9 ; Mitral valve prolapse 424.0 ; Angina at rest 413.9 ; Lymphedema 457.1 and Chronic pain 338.29 IMMUNIZATIONS No Known Immunizations SOCIAL HISTORY Never Assessed REASON FOR VISIT Prior Authorization Request PLAN OF CARE VITAL SIGNS MEDICATIONS Medication Instructions Dosage Frequency Start Date End Date Duration Status Rozerem 8 MG Orally Once a day for sleep 1 tablet at bedtime as needed Nov, Active RESULTS No Results PROCEDURES No [...]
--- OUTSIDE RECORDS SUMMARY | 2018-02-04 14:10 | XMS REPORT ---
Author Author BRIGETTE BOSCH Organization [facility] Address [address] [place] [address] Care Team Providers Care Systems Manager Name Role Phone BRIGETTE BOSCH Unavailable PROBLEMS Type Condition ICD9-CM Code [id number] Code Onset Dates Condition Status SNOMED Code Problem Hyperlipidemia E78.5 Active 96239615 Problem Sleep apnea, obstructive G47.33 Active 11420443 Problem Primary insomnia F51.01 Active 8953954 Problem Chronic pain G89.29 Active 84032932 Problem Morbid (severe) obesity due to excess calories E66.01 Active 500456041 Problem Myocarditis, unspecified chronicity, 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 Active 31851235 Problem Other male erectile dysfunction N52.8 Active 738957714 Problem 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 Active 505867271 Problem Body mass index (BMI) of 40.0-44.9 in adult Z68.41 Active 686298576 Problem Supraventricular tachycardia I47.1 Active 8151870 Problem Insomnia disorder with non-sleep disorder mental comorbidity G47.00 Active 20957704 Problem Chronic tension headaches G44.229 Active 009289920 Problem HTN (hypertension) I10 Active 02865493 Problem Blindness and low vision H54.10 Active 717571949 Problem Chronic pain syndrome G89.4 Active 808612306 Problem Migraine without aura and without status migrainosus, not intractable G43.009 Active 633368376 Problem Sarcoidosis D86.9 Active 72860315 Problem Problems related to release from residential Z65.2 Active 455967181592663 Problem 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 Active 35676756 Problem Mitral valve prolapse I34.1 Active 673892121 Problem Anxiety F41.9 Active 43170136 Problem Major depressive disorder, recurrent, moderate F33.1 Active 27070098 Problem Environmental allergies Z91.09 Active 092773375 Problem Arrhythmia as indication for cardiac pacemaker replacement I49.9 Active 18696908 Problem CAD (coronary artery disease) I25.10 Active 77323715 Problem Post-traumatic stress disorder, chronic F43.12 Active 375236639 ALLERGIES Substance Reaction Event Type Date Status Elavil Unknown Drug Allergy Oct, Active Xalatan upper lid irritation Drug Allergy Oct, Active Penicillin G Potassium rash Drug Allergy Oct, Active Lisinopril cough Drug Allergy Oct, Active Cymbalta effects like aspirin Drug Allergy Oct, Active Aspirin nausea and vomiting Drug Allergy Oct, Active bandaides blisters Non Drug Allergy Oct, Active Wasp venom anaphylaxis Non Drug Allergy Oct, Active ENCOUNTERS Encounter Location Date Diagnosis [facility] [address] [address] Dec, [facility] [address] [address] Nov, [facility] [address] [address] Nov, [facility] [address] [address]- [address] Nov, Left leg pain M79.605 [facility] [address] [address] Oct, [facility] [id number] [place] [id number] Oct, Dental examination Z01.20 [facility] [id number] [place] [address] 00246- 4239 Oct, Insomnia disorder with non-sleep disorder mental comorbidity G47.00 [facility] [id number] [place] [address] 84319- 7241 Oct, Post-traumatic stress disorder, chronic F43.12 ; Insomnia disorder with non-sleep disorder mental comorbidity G47.00 and BMI 40.0-44.9, adult Z68.41 [facility] [id number] [place] [address] 59938- 2885 Oct, [facility] [address] [place] [address] 18 Oct, 2017 Insect bite (nonvenomous), left lower leg, initial encounter S80.862A ; Bitten or stung by nonvenomous insect and other nonvenomous arthropods, initial encounter W57.XXXA and BMI 40.0-44.9, adult Z68.41 [facility] [address] [address] 06 Oct, 2017 Left leg pain M79.605 [facility] [address] [address]- [address] 04 Oct, 2017 Post-traumatic stress disorder, unspecified F43.10 ; Major depressive disorder, recurrent, moderate F33.1 and Problems related to release from residential Z65.2 [facility] [address] [address] 2017 Arrhythmia as indication for cardiac pacemaker replacement I49.9 [facility] [address] [address]- [address] Sep, [facility] [address] [address]- [address] Sep, HTN (hypertension) I10 [facility] [address] 24385- 7473 17 Sep, 2017 [facility] [address] [address]- 20[address] 16 Sep, 2017 Body mass index (BMI) of 40.0-44.9 in adult Z68.41 ; Chronic pain G89.29 and Supraventricular tachycardia I47.1 [facility] [address] 24839- 288[address] Sep, [facility] [address] 8[address]- 5[address] Sep, Sarcoidosis D86.9 [facility] [address] [address]- 8508 Sep, Sarcoidosis D86.9 [facility] [address] [address] Sep, [facility] [id number] [place] [address] 86456- 0541 Sep, [facility] [id number] [place] [address] 37456- 5036 Sep, [facility] [id number] [place] [address] 64403- 5623 Sep, [facility] [id number] [place] [address] 52529- 1286 Sep, Left leg pain M79.605 [facility] [id number] [place] [address] 55338- 6652 Sep, HTN (hypertension) I10 [facility] [id number] [place] [address] 06521- 6494 Sep, [facility] [id number] [place] [address] 85305- 1526 Sep, Post-traumatic stress disorder, unspecified F43.10 ; Major depressive disorder, recurrent, moderate F33.1 and Problems related to release from residential Z65.2 [facility] [address] [address] Sep, [facility] [address] [place] [address] 96621- 4278 Aug, [facility] [address] [place] [address] 11325- 2902 Aug, Sarcoidosis D86.9 [facility] [id number] [place] [address] 43728- 7171 Aug, Sarcoidosis D86.9 [facility] [address] [address] Aug, HTN (hypertension) I10 [facility] [id number] [place] [address] 55564- 7233 18 Aug, 2017 Post-traumatic stress disorder, unspecified F43.10 ; Major depressive disorder, recurrent, moderate F33.1 and Problems related to release from residential Z65.2 [facility] [id number] [place] [address] 60199- 7835 11 Aug, 2017 [facility] [address] 8[address]67- 4354 09 Aug, 2017 Left leg pain M79.605 [facility] [address] 55071- 2769 Jul, Post-traumatic stress disorder, chronic F43.12 ; Anxiety F41.9 ; Problems related to release from residential Z65.2 and BMI 40.0-44.9, adult Z68.[address] [address]- [address] 20 Jul, 2017 HTN (hypertension) I10 ; Body mass index (BMI) of 40.0-44.9 in adult Z68.41 ; Acute swimmer''s ear of both sides H60.333 and Chronic pain G89.29 [facility] [id number] [place] [address] 10270- 7854 19 Jul, 2017 Glaucoma H40.9 [facility] [id number] [place] [address] 93096- 1565 14 Jul, 2017 [facility] [address] 9[address]- 6860 13 Jul, 2017 Sarcoidosis D86.9 [facility] [id number] [place] [address] 75095- 8814 12 Jul, 2017 Left leg pain M79.605 [facility] [id number] [place] [address] 17393- 1072 Jul, Sarcoidosis D86.9 [facility] [id number] [place] [address] 72883- 9062 Jul, Post-traumatic stress disorder, unspecified F43.10 ; Major depressive disorder, recurrent, moderate F33.1 and Problems related to release from residential Z65.2 [facility] [id number] [place] [address] 04826- 7414 June, [facility] [id number] [place] [address] 46709 -[address]77 June, Sore throat J02.9 and BMI 40.0-44.9, adult Z68.41 [facility] [id number] [place] [address] 14185- 6208 June, [facility] [id number] [place] [address] 26911- 3259 June, [facility] [id number] [place] [address] 99221- 7340 June, [facility] [id number] [place] [address] 30107- 0148 June, Left leg pain M79.605 [facility] [id number] [place] [address] 65816- 5707 June, Sarcoidosis D86.9 [facility] [id number] [place] [address] 89066- 1229 June, [facility] [id number] [place] [address] 98834- 7911 June, [facility] [id number] [place] [address] 77994- 8894 June, Left leg pain M79.605 [facility] [id number] [place] [address] 01617- 6624 May, [facility] [id number] [place] [address] 15972- 3760 May, [facility] [id number] [place] [address] 82360- 2016 May, [facility] [id number] [address] 16 May, 2017 Left leg pain M79.605 [facility] [id number] [place] [address] 42332- 5325 May, Post-traumatic stress disorder, unspecified F43.10 ; Major depressive disorder, recurrent, moderate F33.1 and Problems related to release from residential Z65.2 [facility] [id number] [place] [address] 72290- 7717 04 May, 2017 Chronic pain G89.29 ; Anxiety F41.9 ; Chest pain, unspecified type R07.9 and BMI 40.0-44.9, adult Z68.41 [facility] [id number] [place] [address] 27371- 9791 30 Apr, 2017 [facility] [id number] [place] [address] 64355- 6008 Apr, Left leg pain M79.605 [facility] [id number] [place] [address] 67509- 3865 27 Apr, 2017 Post-traumatic stress disorder, unspecified F43.10 ; Problems related to release from residential Z65.2 ; Anxiety F41.9 and BMI 40.0-44.9 , adult Z68.41 [facility] [address], [place] [address] Apr, [facility] [id number] [place] [address] 94894- 9053 Apr, Left leg pain M79.605 [facility] [address] [place] [address] 79505- 2030 13 Apr, 2017 Post-traumatic stress disorder, unspecified F43.10 ; Major depressive disorder, recurrent, moderate F33.1 and Problems related to release from residential Z65.2 [facility] [address], [place] [address] Apr, [facility] [id number] [place] [address] 82103- 1119 12 Apr, 2017 Chronic pain G89.29 ; 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 ; Morbid (severe) obesity due to excess calories E66.01 ; Anxiety F41.9 and BMI 40.0-44.9, adult Z68.41 [facility] [address] [address] Apr, Sore throat J02.9 and BMI 40.0-44.9, adult Z68.41 [facility] [address] 12159- 1576 02 Apr, 2017 Left leg pain M79.605 [facility] [address] [id number] Mar, Dental examination Z01.[address] [address]- 5679 Mar, [facility] [address] [address] Mar, Cough R05 ; Viral gastroenteritis A08.4 and BMI 40.0-44.9, adult Z68.41 [facility] [address] 19343- 4430 Mar, Left leg pain M79.605 [facility] [address] 33499- 5352 Mar, Post-traumatic stress disorder, unspecified F43.10 ; Major depressive disorder, recurrent, moderate F33.1 and Problems related to release from residential Z65.[address] 68756- 8575 Feb, Left leg pain M79.605 [facility] [address] [address]- 0313 Feb, [facility] [address] 40677- 8204 Feb, BMI 40.0-44.9, adult Z68.41 ; Chronic pain syndrome G89.4 ; Migraine without aura and without status migrainosus, not intractable G43.009 ; Mitral valve prolapse I34.1 and 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 [facility] [address] [place] [address] 39068- 4752 Feb, Post-traumatic stress disorder, chronic F43.12 ; Anxiety F41.9 ; Problems related to release from residential Z65.2 and BMI 40.0-44.9, adult Z68.41 [facility] [id number] [place] [address] 74554- 1913 Feb, Post-traumatic stress disorder, unspecified F43.10 ; Major depressive disorder, recurrent, moderate F33.1 and Problems related to release from residential Z65.2 [facility] [id number] [place] [address] 81210- 8985 Feb, Left leg pain M79.605 [facility] [id number] [place] [address] 64650- 3746 Jan, Post-traumatic stress disorder, unspecified F43.10 ; Major depressive disorder, recurrent, moderate F33.1 and Problems related to release from residential Z65.2 [facility] [address] [place] [address] 73838- 6467 Jan, [facility] [id number] [place] [address] 61974- 3100 Jan, [facility] [id number] [place] [address] 53159- 8650 Jan, Anxiety F41.9 [facility] [id number] [place] [address] 50019- 7411 Jan, Left leg pain M79.605 [facility] [address] [place] [address] 56471- 2694 Dec, Left leg pain M79.605 [facility] [id number] [place] [address] 88732- 2235 Dec, [facility] [id number] [place] [address] 92885- 1420 Dec, Post-traumatic stress disorder, unspecified F43.10 ; Major depressive disorder, recurrent, moderate F33.1 and Problems related to release from residential Z65.2 [facility] [id number] [place] [address] 96977- 8703 31 Nov, 2016 Chronic pain G89.29 and Anxiety F41.9 [facility] [id number] [place] [address] 29318- 4452 24 Nov, 2016 Chronic pain G89.29 and Anxiety F41.9 [facility] [id number] [place] [address] 45262- 9840 16 Nov, 2016 Post-traumatic stress disorder, unspecified F43.10 ; Major depressive disorder, recurrent, moderate F33.1 and Problems related to release from residential Z65.2 [facility] [id number] [place] [address] 50534- 8653 09 Nov, 2016 Other abnormal findings in specimens from other organs, systems and tissues R89.8 ; Other male erectile dysfunction N52.8 ; Body mass index (BMI) of 40.0-44.9 in adult Z68.41 and Morbid (severe) obesity due to excess calories E66.01 [facility] [id number] [place] [address] 02632- 9888 02 Nov, 2016 Post-traumatic stress disorder, unspecified F43.10 ; Major depressive disorder, recurrent, moderate F33.1 and Problems related to release from residential Z65.2 [facility] [address] [place] [address] [id number] Oct, Dental examination Z01.20 [facility] [address] [place] [address] 21988- 1252 Oct, [facility] [id number] [place] [address] 95562- 7207 Oct, Encounter for immunization Z23 [facility] [id number] [place] [address] 22906- 9771 Oct, Chronic pain G89.29 ; Anxiety F41.9 ; Arrhythmia as indication for cardiac pacemaker replacement I49.9 and Glaucoma H40.9 [facility] [address] [place] [address] 67353- 3136 Oct, Anxiety F41.9 ; Post-traumatic stress disorder, chronic F43.12 and Problems related to release from residential Z65.2 [facility] [id number] [place] [address] 18477- 5670 Oct, Post-traumatic stress disorder, unspecified F43.10 ; Major depressive disorder, recurrent, moderate F33.1 and Problems related to release from residential Z65.2 [facility] [id number] [place] [address] 95278- 2664 Sep, Chronic pain G89.29 and Anxiety F41.9 [facility] [id number] [place] [address] 41358- 3638 Sep, Post-traumatic stress disorder, unspecified F43.10 ; Major depressive disorder, recurrent, moderate F33.1 and Problems related to release from residential Z65.2 [facility] [address] [place] [address] 97755- 0534 Sep, Post-traumatic stress disorder, unspecified F43.10 ; Major depressive disorder, recurrent, moderate F33.1 and Problems related to release from residential Z65.2 [facility] [address], [place] [address]- 8505 Sep, Chronic pain G89.29 [facility] [id number] [place] [address] 15140- 8563 Aug, Dental caries, unspecified K02.9 [facility] [id number] [place] [address] 49537- 3443 Aug, Sleep apnea, obstructive G47.33 ; Obesity E66.9 ; Chronic pain G89.29 ; HTN (hypertension) I10 ; Major depressive disorder, recurrent, moderate F33.1 ; Anxiety F41.9 ; Chronic tension headaches G44.229 ; Mitral valve prolapse I34.1 ; Arrhythmia as indication for cardiac pacemaker replacement I49.9 ; Dental caries, unspecified K02.9 ; Primary insomnia F51.01 and Hyperlipidemia E78.5 [facility] [id number] [place] [address] 49515- 3605 Aug, Post-traumatic stress disorder, unspecified F43.10 ; Major depressive disorder, recurrent, moderate F33.1 and Problems related to release from residential Z65.2 [facility] [address] 82821- 0924 Aug, Dental examination Z01.20 [facility] [id number] [place] [address] [id number] Aug, Dental examination Z01.20 [facility] [address] 81309- 7444 Aug, Post-traumatic stress disorder, unspecified F43.10 ; Major depressive disorder, recurrent, moderate F33.1 and Problems related to release from residential Z65.2 [facility] [id number] [place] [address] 57956- 1141 Aug, Chronic pain G89.29 and Primary insomnia F51.01 [facility] [id number] [place] [address] 25183- 2008 Jul, [facility] [id number] [place] [address] 32469- 4914 Jul, [facility] [id number] [place] [address] 52448- 9872 Jul, Nausea R11.0 [facility] [id number] [place] [address] 21272- 6599 Jul, Arrhythmia as indication for cardiac pacemaker replacement I49.9 [facility] [address] 41638- 7463 13 Jul, 2016 Post-traumatic stress disorder, unspecified F43.10 ; Major depressive disorder, recurrent, moderate F33.1 and Problems related to release from residential Z65.2 [facility] [id number] [place] [address] 67580- 8285 09 Jul, 2016 Anxiety F41.9 [facility] [id number] [place] [address] 99390- 6360 08 Jul, 2016 Chronic pain G89.29 [facility] [id number] [place] [address] 38174- 7558 02 Jul, 2016 Sleep apnea, obstructive G47.33 ; Hyperlipidemia E78.5 ; Chronic pain G89.29 ; Blindness and low vision H54.10 ; Major depressive disorder, recurrent, moderate F33.1 ; Anxiety F41.9 ; Mitral valve prolapse I34.1 ; Arrhythmia as indication for cardiac pacemaker replacement I49.9 ; Primary insomnia F51.01 ; Bilateral headaches R51 and Environmental allergies Z91.09 [facility] [address] [place] [address] 42240- 9090 Jul, Post-traumatic stress disorder, unspecified F43.10 ; Major depressive disorder, recurrent, moderate F33.1 and Problems related to release from residential Z65.2 [facility] [address] [place] [address] 68601- 4140 June, Post-traumatic stress disorder, chronic F43.12 ; Anxiety F41.9 ; Problems related to release from residential Z65.2 ; Sleep apnea, obstructive G47.33 and Primary insomnia F51.01 [facility] [address] [address]- 6285 June, [facility] [id number] [place] [address] 91182- 9710 June, [facility] [id number] [place] [address] 55337- 8564 June, [facility] [id number] [place] [address] 82760- 6397 June, Chronic pain G89.29 [facility] [id number] [place] [address] 90578- 3186 June, Chronic pain G89.29 [facility] [id number] [place] [address] 09198- 8483 June, Lipoma of left lower extremity D17.24 ; Open wound T14.8 and Swelling of left lower extremity M79.89 [facility] [id number] [place] [address] 49203- 7021 June, Post-traumatic stress disorder, unspecified F43.10 ; Major depressive disorder, recurrent, moderate F33.1 and Problems related to release from residential Z65.2 [facility] [id number] [place] [address] 66815- 6194 May, Lipoma of left lower extremity D17.24 ; Major depressive disorder, recurrent, moderate F33.1 ; Sleep apnea, obstructive G47.33 ; Hyperlipidemia E78.5 ; Obesity E66.9 ; HTN (hypertension) I10 ; Glaucoma H40.9 ; CAD (coronary artery disease) I25.10 ; Chronic tension headaches G44.229 ; Chronic pain G89.29 ; Anxiety F41.9 ; Nausea R11.0 and Primary insomnia F51.01 [facility] [address] [place] [address] 62950- 9952 May, [facility] [id number] [place] [address] 87435- 6213 May, Chronic pain G89.29 [facility] [address] [place] [address] 56368- 2590 May, [facility] [id number] [place] [address] 66396- 1228 Apr, Post-traumatic stress disorder, unspecified F43.10 ; Major depressive disorder, recurrent, moderate F33.1 and Problems related to release from residential Z65.2 [facility] [id number] [place] [address] 08279- 8961 Apr, Primary insomnia F51.01 ; Post-traumatic stress disorder, chronic F43.12 and Problems related to release from residential Z65.2 [facility] [id number] [place] [address] [id number]- 9126 Apr, Post-traumatic stress disorder, unspecified F43.10 ; Major depressive disorder, recurrent, moderate F33.1 and Problems related to release from residential Z65.2 [place] [id number] [place] [address] [id number]- [id number] Apr, [place] [id number] [place] [address] [id number]- 1441 Apr, Sleep apnea, obstructive G47.33 ; Chronic pain G89.29 ; HTN (hypertension) I10 ; Mitral valve prolapse I34.1 ; Shoulder pain, left M25.512 ; Arrhythmia as indication for cardiac pacemaker replacement I49.9 ; Glaucoma H40.9 ; Bilateral headaches R51 ; Environmental allergies Z91.09 ; Primary insomnia F51.01 and Nausea R11.0 [place] [id number] [place] [address] [id number]- 8934 Apr, [place] [id number] [place] [address] 55711- 4909 Apr, [place] [id number] [place] [address] 94212- 9232 Apr, Post-traumatic stress disorder, unspecified F43.10 ; Major depressive disorder, recurrent, moderate F33.1 and Problems related to release from residential Z65.2 [place] [address] [address] Apr, HTN (hypertension) I10 [place] [address] [place] [id number] [place] [address] 04555- 3370 Apr, HTN (hypertension) I10 [place] [address] [place] [id number] [place] [address] 86847- 4394 14 Mar, 2016 Chronic pain G89.29 ; Primary insomnia F51.01 and Problems related to release from residential Z65.2 [facility] [id number] [place] [address] 52409- 9868 Mar, Post-traumatic stress disorder, unspecified F43.10 ; Major depressive disorder, recurrent, moderate F33.1 and Problems related to release from residential Z65.2 [place] [address] [place] [id number] [place] [address] 62465- 0118 Feb, Post-traumatic stress disorder, unspecified F43.10 ; Major depressive disorder, recurrent, moderate F33.1 and Problems related to release from residential Z65.2 [place] [address] 19234- 9673 Feb, Chronic tension headaches G44.[address] 12087- 6760 Feb, Sleep apnea, obstructive G47.33 ; Obesity [...] pacemaker replacement I49.9 and Primary insomnia F51.01 [place] [address] [place] [id number] [place] [address] 73060- 7109 Feb, Post-traumatic stress disorder, unspecified F43.10 and Chronic pain G89.29 [facility] [id number] [place] [address] 67447- 1851 Feb, [facility] [address] [place] [address] [id number] Feb, Dental caries K02.9 [place] [id number] [place] [address] 79294- 6713 Feb, [place] [address], [place] [address] 110[address] Feb, Post-traumatic stress disorder, unspecified F43.10 ; Major depressive disorder, recurrent, moderate F33.1 and Problems related to release from residential Z65.2 [place] [address], [place] [address] Jan, Sleep apnea, obstructive G47.33 and Chronic pain G89.29 [place] [address] [place] [id number] [place] [address] 76914- 9576 Jan, [place] [id number] [place] [address] 49293- 8702 Jan, Dental examination Z01.20 [place] [id number] [place] [address] 55224- 9160 Jan, [place] [id number] [place] [address] 89933- 9270 Jan, [place] [address] [place] [id number] [place] [address] 14493- 4061 Dec, Post-traumatic stress disorder, unspecified F43.10 ; Major depressive disorder, recurrent, moderate F33.1 and Problems related to release from residential Z65.2 [address] [place] [address] 57583- 4264 Dec, Encounter for immunization Z23 ; Problems related to release from residential Z65.2 ; Sleep apnea, obstructive G47.33 and Post-traumatic stress disorder, chronic F43.[address] [place] [address] 52307- 9837 Dec, Sleep apnea, obstructive G47.33 ; Hyperlipidemia E78.5 ; Chronic pain G89.29 ; Glaucoma H40.9 ; HTN (hypertension) I10 ; Post-traumatic stress disorder, unspecified F43.10 ; Anxiety F41.9 ; Chronic tension headaches G44.229 ; Mitral valve prolapse I34.1 and CAD (coronary artery disease) I25.10 [place] [id number] [address] Dec, Post-traumatic stress disorder, unspecified F43.10 ; Major depressive disorder, recurrent, moderate F33.1 and Problems related to release from residential Z65.2 [place] [address] [place] [id number] [place] [address] 54888- 8912 Nov, Chronic pain G89.29 [place] [address] [place] [id number] [place] [address] 697843- 7895 Nov, Post-traumatic stress disorder, unspecified F43.10 ; Major depressive disorder, recurrent, moderate F33.1 and Problems related to release from residential Z65.2 [place] [address] [place] [id number] [place] [address] 47895- 0801 Oct, [place] [address] [place] [id number] [place] [address] 60981- 1831 Oct, [place] [address] [place] [id number] [place] [address] 93412- 5160 16 Oct, 2015 Post-traumatic stress disorder, unspecified F43.10 ; Major depressive disorder, recurrent, moderate F33.1 and Problems related to release from residential Z65.2 [place] [address] [place] [id number] [place] [address] 69524- 4057 08 Oct, 2015 [place] [address] [place] [address] 97350- 6935 07 Oct, 2015 Environmental allergies Z91.09 ; Cough R05 and 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 [place] [address] [place] [id number] [place] [address] 64221- 4639 Sep, [place] [address] [place] [id number] [place] [address] 44512- 0587 Sep, Post-traumatic stress disorder, unspecified F43.10 ; Major depressive disorder, recurrent, moderate F33.1 and Problems related to release from residential Z65.2 [place] [address] [place] [id number] [place] [address] 82740- 2153 Sep, Chronic pain G89.29 [facility] [address] [place] [address] 22958- 0250 Sep, Pain in left shoulder M25.512 ; Pain in right shoulder M25.511 and Other chronic pain G89.29 [facility] [address] [place] [id number] [place] [address] 18483- 8167 Sep, [facility] [address] [place] [id number] [place] [address] 76393- 1085 Sep, [facility] [address] [place] [id number] [place] [address] 41915- 0429 Sep, [facility] [address] [place] [address] [id number] [place] [address] [id number] Aug, Dental examination Z01.20 [place] [address] [place] [id number] [place] [address] 50403- 2180 Aug, Post-traumatic stress disorder, unspecified F43.10 ; Open- angle glaucoma of both 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 and Problems related to release from residential Z65.2 [place] [address] [place] [id number] [place] [address] 23258- 1763 Aug, [facility] [address] [place] [address] [id number] [place] [address] 84644- 8922 Aug, Sleep apnea, obstructive G47.33 ; Obesity E66.9 ; Hyperlipidemia E78.5 ; Bilateral headaches R51 ; HTN (hypertension) I10 ; Post- traumatic stress disorder, unspecified F43.10 ; Anxiety F41.9 ; Neuropathy G62.9 ; Glaucoma H40.9 and Chronic pain G89.29 [facility] [address] [id number] [place] [address] [id number] Aug, Encounter for dental examination Z01.20 [facility] [address] [place] [address] [id number] [place] [address] 62537- 3059 Aug, Post-traumatic stress disorder, unspecified F43.10 ; Major depressive disorder, recurrent, moderate F33.1 and Problems related to release from residential Z65.2 [facility] [address], [place] [address]- 8470 Aug, [facility] [address] [place] [address] 77224- 9372 Jul, [facility] [address] [place] [id number] [place] [address] 71003- 2019 Jul, Post-traumatic stress disorder, unspecified F43.10 and Major depressive disorder, recurrent, moderate F33.1 [facility] [address], [place] [address]- 0428 Jul, [facility] [address] [place] [id number] [place] [address] 88233- 2648 Jul, [place] [address] [place] [id number] [place] [address] 84966- 7429 Jul, Chronic pain G89.29 [place] [address] [place] [id number] [place] [address] 99697- 5321 June, Post-traumatic stress disorder, unspecified F43.10 and Major depressive disorder, recurrent, moderate F33.1 [place] [address] [place] [address] 38808- 3492 June, [place] [address], [place] [address]- 6312 June, Chronic pain G89.29 [facility] [address] [place] [address] 42569- 1831 June, Post-traumatic stress disorder, unspecified F43.10 and Major depressive disorder, recurrent, moderate F33.1 [facility] [address] [address]- 5329 May, Post-traumatic stress disorder, unspecified F43.10 and Major depressive disorder, recurrent, moderate F33.1 [place] [address] [address]- 8101 May, [facility] [address] [address]- 2253 May, [facility] [address] [place] [address] [id number] [place] [address] 77073- 8284 May, [facility] [address] [place] [address] [id number] [place] [address] 78295- 9815 Apr, [facility] [address] [place] [address] [id number] [place] [address] 04523- 6485 Apr, Post-traumatic stress disorder, unspecified F43.10 and Sleep apnea, obstructive G47.33 [facility] [address] [place] [address] [id number] [place] [address] 75273- 6705 Apr, [facility] [address] [place] [address] [id number] [place] [address] 53395- 8048 Apr, Shoulder pain, left M25.512 [facility] [address] [place] [id number] [place] [address] 35327- 5128 Apr, Post-traumatic stress disorder, unspecified F43.10 and Major depressive disorder, recurrent, moderate F33.1 [facility] [address] [place] [id number] [place] [address] 96407- 2455 17 Apr, 2015 [facility] [address] [place] [address] [id number] [place] [address] 49147- 5674 Apr, [facility] [address] [place] [address] [id number] [place] [address] 62719- 2097 Apr, [facility] [address] [place] [address] [id number] [place] [address] 23895- 3124 Apr, Left shoulder pain M25.512 [facility] [address] [place] [id number] [place] [address] 39951- 0341 Mar, [facility] [address] [place] [address] [id number] [place] [address] 54552- 2118 Mar, [facility] [address] [place] [address] [id number] [place] [address] 67434- 6621 18 Mar, 2015 [place] [address] 27491- 7470 Mar, Sleep apnea, obstructive G47.33 ; Obesity E66.9 ; Chronic pain G89.29 ; Hyperlipidemia E78.5 ; HTN (hypertension) I10 ; Blindness and low vision H54.10 ; Major depressive disorder, recurrent, moderate F33.1 and Anxiety F41.9 [place] [address] 40236- 6696 Mar, [address] 117732- 6496 Mar, Post-traumatic stress disorder, unspecified F43.10 and Major depressive disorder, recurrent, moderate F33.[address] 84481- 8692 Mar, [place] [id number]- 8172 Mar, HTN (hypertension) I10 ; Blindness and low vision H54.10 ; Obesity E66.9 ; Hyperlipidemia E78.5 ; Glaucoma H40.9 ; Chronic pain G89.29 and CAD (coronary artery disease) I25.10 [place] [id number] [place] [address] 59313- 6946 Feb, [place] [id number] [place] [address] 91433- 7671 Feb, Post-traumatic stress disorder, unspecified F43.10 ; Obesity E66.9 ; Sleep apnea, obstructive G47.33 and 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 [place] [id number] [place] [address] 31130- 9752 Feb, Post-traumatic stress disorder, unspecified F43.10 and Major depressive disorder, recurrent, moderate F33.[address] 08359- 1450 Feb, [place] [address] [place] [id number] [place] [address] 77117- 4292 Feb, [place] [address] [place] 459406- 0082 Feb, HTN (hypertension) I10 ; Post-traumatic stress disorder, unspecified F43.10 ; Blindness and low vision H54.10 ; Obesity E66.9 ; Hyperlipidemia E78.5 ; Chronic pain G89.29 ; Glaucoma H40.9 ; Mitral valve prolapse I34.1 and Bilateral headaches R51 [place] [address] [place] [id number] [place] [address] 07279- 0649 Feb, [place] [address] 79103- 8712 Feb, Post-traumatic stress disorder, unspecified F43.10 and Major depressive disorder, recurrent, moderate F33.1 [place] [address] 72105- 2920 Feb, [place] [address] [place] [id number] [place] [address] 04358- 9548 Feb, [place] [address] 50244- 4933 Jan, [place] [address] [place] [id number] [place] [address] 79389- 0787 Jan, [place] [address] [place] 459400- 4557 Jan, Obesity E66.9 ; HTN (hypertension) I10 ; Blindness and low vision H54.10 ; Major depressive disorder, recurrent, moderate F33.1 ; Glaucoma H40.9 ; Hyperlipidemia E78.5 ; Sleep apnea, obstructive G47.33 ; Chronic pain G89.29 ; Anxiety F41.9 ; Chronic tension headaches G44.229 and Cough R05 [place] [address] [place] [id number] [place] [address] 85226- 1528 Jan, [facility] [address] [place] [address] [id number] [place] [address] 78534- 2595 Jan, [facility] [address] [place] 459402- 6226 Jan, Post-traumatic stress disorder, unspecified F43.10 ; Obesity E66.9 ; Sleep apnea, obstructive G47.33 and 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 [facility] [address] 212950- 0640 Jan, [place] [address] 66662- 1995 Jan, Post-traumatic stress disorder, unspecified F43.10 and Major depressive disorder, recurrent, moderate F33.1 [place] [address] 09319- 6523 Dec, [place] [address] 66759- 5654 Dec, Sleep apnea, obstructive G47.33 ; Obesity E66.9 ; Hyperlipidemia E78.5 ; Glaucoma H40.9 ; Chronic pain G89.29 ; HTN (hypertension ) I10 ; Blindness and low vision H54.10 ; Anxiety F41.9 and CAD (coronary artery disease) I25.10 [place] [address] [place] [id number] [place] [address] 27304- 9914 Nov, [place] [address] [place] [id number] [place] [address] 97937- 2451 Nov, [facility] [address] [place] [id number] [place] [address] 17474- 7387 Nov, [facility] [address] 70227- 2476 Nov, [facility] [address] [place] [id number] [place] [address] 06300- 7718 Nov, [facility] [address] [place] 459402- 2546 Nov, Encounter for immunization Z23 ; Sleep apnea, obstructive G47.33 ; Obesity E66.9 ; Hyperlipidemia E78.5 ; Glaucoma H40.9 ; Chronic pain G89.29 ; Anxiety F41.9 ; Chronic tension headaches G44.229 and HTN (hypertension ) I10 [facility] [address] [place] [address] [id number] [place] [address] 56151- 8281 Nov, [facility] [address] 22151- 4991 Nov, [facility] [address] 72219- 2307 Nov, Dizziness R42 [facility] [address] 52045- 4144 Nov, [facility] [address] 60062- 0985 Oct, [facility] [address] 56019- 7078 Oct, [facility] [address] 84397- 2732 Oct, [facility] [address] 64035- 0297 Oct, [facility] [address] 49994- 0535 Oct, Dizziness 780.4 ; Essential hypertension 401.9 ; Obesity 278.00 ; Hyperlipidemia 272.4 ; Chronic pain 338.29 ; Glaucoma 365.9 and Anxiety 300.00 [facility] [address] 16017- 4214 Oct, Essential hypertension 401.9 ; Hyperlipidemia 272.4 ; Glaucoma 365.9 ; Obesity 278.00 ; Chronic pain 338.29 and Allergy to insects V15.06 [facility] [address] [place] [id number] [place] [address] 28935- 4535 Sep, [facility] [address] [facility] [id number] [address]- 9266 Sep, [facility] [address] [facility] [id number] [address]- 7000 Sep, [facility] [address] [facility] [id number] [address]- 0901 Sep, [facility] [address] [facility] [id number], [place] [address]- 1024 Aug, Essential hypertension 401.9 ; Obesity 278.00 ; Hyperlipidemia 272.4 ; Glaucoma 365.9 ; Lipoma 214.9 ; Mitral valve prolapse 424.0 ; Angina at rest 413.9 ; Lymphedema 457.1 and Chronic pain 338.29 IMMUNIZATIONS No Known Immunizations SOCIAL HISTORY Never Assessed REASON FOR VISIT spider bite left leg started a couple days ago JStrasserRN PLAN OF CARE Activity Details Follow Up w/ PCP, prn Reason:if symptoms worsen VITAL SIGNS Height 67 in 2017-10-26 Weight 271.0 lbs 2017-10-26 Temperature 98.0 degrees Fahrenheit 2017-10-26 Heart Rate 76 bpm 2017-10-26 Respiratory Rate 20 2017-10-26 BMI 42.44 kg/m2 2017-10-26 Blood pressure systolic 156 mmHg 2017-10-26 Blood pressure diastolic 110 mmHg 2017-10-26 MEDICATIONS Medication Instructions Dosage Frequency Start Date End Date Duration Status Losartan Potassium 100 MG Orally Once a day 1 tablet 24h Active Metoprolol Succinate ER 200 mg Orally Once a day 1 tablet 24h 90 days Active Cartia XT 300 MG Orally Once a day 1 capsule 24h 90 days Active Topamax 100 MG TAKE ONE TABLET BY MOUTH TWICE DAILY 90 Active Nitrostat 0.4 MG Sublingual every 5 minutes x 3 PRN 1 tablet 30 days Active Hydrocodone-Acetaminophen 7.5-325 MG Orally 4 times a day 1 tablet 6h Oct, Active Methotrexate 2.5 MG 3 tablets once for one week then 4 tablets once for 2 weeks then 6 tablets q7days there after Active Folic Acid 1 MG Orally Once a day 1 tablet 24h Active Atorvastatin Calcium 20 MG TAKE ONE TABLET BY MOUTH ONCE DAILY 90 Active Sulfamethoxazole-Trimethoprim 800-160 MG Orally Twice a day 1 tablet 12h Oct, Oct, 5 days Active EPINEPHrine 0.3 MG/0.3ML as directed Jul, Active Xanax 1 MG Orally Twice a day for anxiety 1 tablet 30 days Active Zofran ODT 4 MG Orally every 8 hrs prn 1 tablet on the tongue and allow to dissolve 10 Active RESULTS No Results PROCEDURES No Known [...]
[2018-02-04] MEDS ORDERED: RT-ALBUINH IH (14:11)
--- OUTSIDE RECORDS SUMMARY | 2018-02-04 14:11 | XMS REPORT ---
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 Name Role Phone ALENA ÁLVAREZ Unavailable PROBLEMS Type Condition ICD9-CM Code GII39-NO Code Onset Dates Condition Status SNOMED Code Problem Hyperlipidemia E78.5 Active 73491729 Problem Sleep apnea, obstructive G47.33 Active 57550838 Problem Primary insomnia F51.01 Active 8239036 Problem Chronic pain G89.29 Active 99525812 Problem Morbid (severe) obesity due to excess calories E66.01 Active 945546332 Problem Myocarditis, unspecified chronicity, 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 Active 75076489 Problem Other male erectile dysfunction N52.8 Active 203944863 Problem 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 Active 997594256 Problem Body mass index (BMI) of 40.0-44.9 in adult Z68.41 Active 824171145 Problem Supraventricular tachycardia I47.1 Active 2312403 Problem Insomnia disorder with non-sleep disorder mental comorbidity G47.00 Active 62726787 Problem Chronic tension headaches G44.229 Active 920098585 Problem HTN (hypertension) I10 Active 41862050 Problem Blindness and low vision H54.10 Active 595526871 Problem Chronic pain syndrome G89.4 Active 065101840 Problem Migraine without aura and without status migrainosus, not intractable G43.009 Active 110683148 Problem Sarcoidosis D86.9 Active 54099561 Problem Problems related to release from half-way Z65.2 Active 564244029539538 Problem 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 Active 75168876 Problem Mitral valve prolapse I34.1 Active 443253302 Problem Anxiety F41.9 Active 99480481 Problem Major depressive disorder, recurrent, moderate F33.1 Active 21577194 Problem Environmental allergies Z91.09 Active 866563468 Problem Arrhythmia as indication for cardiac pacemaker replacement I49.9 Active 54987573 Problem CAD (coronary artery disease) I25.10 Active 17811410 Problem Post-traumatic stress disorder, chronic F43.12 Active 299017161 ALLERGIES No Information ENCOUNTERS Encounter Location Date Diagnosis [place] [address] [address]83 Dec, [facility] [address] [place] [id number] [place] [address] 06341- 6914 16 Nov, 2017 [place] [address] 09354- 1250 Nov, [place] [address] 35804- 5707 Nov, Left leg pain M79.605 [place] [address] [place] [id number] [place] [address] 45348- 9532 28 Oct, 2017 [facility] [address] [id number] 28 Oct, 2017 Dental examination Z01.20 [place] [address] [place] [id number] [place] [address] 27582- 4899 Oct, Insomnia disorder with non-sleep disorder mental comorbidity G47.00 [place] [address] [place] [id number] [place] [address] 95933- 1996 Oct, Post-traumatic stress disorder, chronic F43.12 ; Insomnia disorder with non-sleep disorder mental comorbidity G47.00 and BMI 40.0-44.9, adult Z68.41 [facility] [address] [id number] [place] [address] 21135- 1232 19 Oct, 2017 [facility] [id number] [place] [address] 82844 -1023 18 Oct, 2017 Insect bite (nonvenomous), left lower leg, initial encounter S80.862A ; Bitten or stung by nonvenomous insect and other nonvenomous arthropods, initial encounter W57.XXXA and BMI 40.0-44.9, adult Z68.41 [place] [address] [place] [id number] [place] [address] 50147- 4866 06 Oct, 2017 Left leg pain M79.605 [facility] [address] [id number] [place] [address] 17875- 9847 04 Oct, 2017 Post-traumatic stress disorder, unspecified F43.10 ; Major depressive disorder, recurrent, moderate F33.1 and Problems related to release from half-way Z65.2 [facility] [address] 56342- 8125 2017 Arrhythmia as indication for cardiac pacemaker replacement I49.9 [facility] [address] 28117- 3102 Sep, [place] [address] 12621- 1389 Sep, HTN (hypertension) I10 [place] [address] 84216- 8772 Sep, [place] [address] 85295- 7696 16 Sep, 2017 Body mass index (BMI) of 40.0-44.9 in adult Z68.41 ; Chronic pain G89.29 and Supraventricular tachycardia I47.1 [place] [address] [place] [id number] [place] [address] 45485- 5472 Sep, [place] [address] [place] [id number] [place] [address] 23649- 9593 Sep, Sarcoidosis D86.9 [facility] [address] [place] [id number] [place] [address] 26874- 6295 Sep, Sarcoidosis D86.9 [facility] [address] 31019- 2808 Sep, [facility] [address] [place] [id number] [place] [address] 57310- 4841 Sep, [facility] [address] 80542- 0153 Sep, [facility] [address] [address] 0856 Sep, [facility] [id number] [place] [address] 36025- 0956 Sep, Left leg pain M79.605 [facility] [address] [address] 2546 Sep, HTN (hypertension) I10 [facility] [address] [id number] [place] [address] 19262 2546 Sep, [facility] [address] [place] [address] 26139- 2416 Sep, Post-traumatic stress disorder, unspecified F43.10 ; Major depressive disorder, recurrent, moderate F33.1 and Problems related to release from half-way Z65.2 [facility] [address] [place] [address] 51269- 7886 Sep, [facility] [address] [place] [address] 10882 2546 Aug, [facility] [address] [place] [address] 48147 2546 Aug, Sarcoidosis D86.9 [facility] [address] [address] 2546 Aug, Sarcoidosis D86.9 [facility] [address] [address] 2546 Aug, HTN (hypertension) I10 [facility] [address] [address] 2546 Aug, Post-traumatic stress disorder, unspecified F43.10 ; Major depressive disorder, recurrent, moderate F33.1 and Problems related to release from half-way Z65.2 [facility] [address] [address] 2546 Aug, [facility] [address] 48889- 8582 Aug, Left leg pain M79.605 [place] [address] 79580- 9576 Jul, Post-traumatic stress disorder, chronic F43.12 ; Anxiety F41.9 ; Problems related to release from half-way Z65.2 and BMI 40.0-44.9, adult Z68.41 [place] [address] 17527- 6289 20 Jul, 2017 HTN (hypertension) I10 ; Body mass index (BMI) of 40.0-44.9 in adult Z68.41 ; Acute swimmer''s ear of both sides H60.333 and Chronic pain G89.29 [place] [address] 23315- 6137 19 Jul, 2017 Glaucoma H40.9 [place] [address] 47666- 1136 14 Jul, 2017 [place] [address] 17470- 9738 13 Jul, 2017 Sarcoidosis D86.9 [place] [address] 23512- 1145 Jul, Left leg pain M79.605 [place] [address] 79506- 7428 Jul, Sarcoidosis D86.9 [place] [address] 39685- 1139 Jul, Post-traumatic stress disorder, unspecified F43.10 ; Major depressive disorder, recurrent, moderate F33.1 and Problems related to release from half-way Z65.2 [place] [address] 35280- 3138 June, [facility] [address] 40636 -4472 30 May, 2018 Sore throat J02.9 and BMI 40.0-44.9, adult Z68.41 [facility] [address] [address]- 1346 June, [facility] [address] [place] [id number] [place] [address] 39644- 0186 June, [facility] [address] [place] [id number] [place] [address] 14283- 6933 June, [facility] [address] [place] [id number] [place] [address] 96034- 7826 June, Left leg pain M79.605 [facility] [address] [place] [id number] [place] [address] 95072- 1582 June, Sarcoidosis D86.9 [facility] [address] [place] [id number] [place] [address] 94701- 9971 June, [facility] [address] [place] [id number] [place] [address] 92486- 0211 June, [facility] [id number] [address]- 5600 June, Left leg pain M79.605 [facility] [address] [id number] [address]- 5232 May, [facility] [address], [place] [address]- 6980 May, [facility] [address] [address] 2542 May, [facility] [address] [address]- 7746 May, Left leg pain M79.605 [facility] [address] [id number] [address]- 8307 May, Post-traumatic stress disorder, unspecified F43.10 ; Major depressive disorder, recurrent, moderate F33.1 and Problems related to release from half-way Z65.2 [place] [address] [place] [address] 21189- 9706 04 May, 2017 Chronic pain G89.29 ; Anxiety F41.9 ; Chest pain, unspecified type R07.9 and BMI 40.0-44.9, adult Z68.41 [place] [address] [place] [id number] [place] [address] 37891- 0849 30 Apr, 2017 [place] [address] 35782- 0335 29 Apr, 2017 Left leg pain M79.605 [place] [address] 71887- 7415 27 Apr, 2017 Post-traumatic stress disorder, unspecified F43.10 ; Problems related to release from half-way Z65.2 ; Anxiety F41.9 and BMI 40.0-44.9 , adult Z68.41 [place] [address] 80231- 0289 22 Apr, 2017 [facility] [address] [place] [id number] [place] [address] 91989- 6799 Apr, Left leg pain M79.605 [place] [address] [place] [id number] [place] [address] 38637- 5862 13 Apr, 2017 Post-traumatic stress disorder, unspecified F43.10 ; Major depressive disorder, recurrent, moderate F33.1 and Problems related to release from half-way Z65.2 [place] [address] [place] [id number] [place] [address] 88251- 7542 12 Apr, 2017 [place] [address] [place] [id number] [place] [address] 82946- 2299 Apr, Chronic pain G89.29 ; 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 ; Morbid (severe) obesity due to excess calories E66.01 ; Anxiety F41.9 and BMI 40.0-44.9, adult Z68.41 [facility] [address] [place] [id number] [place] [address] 63028 -2413 Apr, Sore throat J02.9 and BMI 40.0-44.9, adult Z68.41 [place] [address] [place] [id number] [place] [address] 67011- 4863 02 Apr, 2017 Left leg pain M79.605 [facility] [address] [place] [address] [id number] 28 Mar, 2017 Dental examination Z01.20 [place] [address] 08860- 3307 23 Mar, 2017 [facility] [address] 04979 -3269 Mar, Cough R05 ; Viral gastroenteritis A08.4 and BMI 40.0-44.9, adult Z68.41 [place] [address] [place] [id number] [place] [address] 88325- 0714 Mar, Left leg pain M79.605 [place] [address] 19825- 2114 06 Mar, 2017 Post-traumatic stress disorder, unspecified F43.10 ; Major depressive disorder, recurrent, moderate F33.1 and Problems related to release from half-way Z65.2 [place] [address] [place] [id number] [place] [address] 27701- 2786 Feb, Left leg pain M79.605 [facility] [address] [place] [id number] [place] [address] 33404- 4482 Feb, [place] [address] [place] [id number] [place] [address] 90667- 2263 Feb, BMI 40.0-44.9, adult Z68.41 ; Chronic pain syndrome G89.4 ; Migraine without aura and without status migrainosus, not intractable G43.009 ; Mitral valve prolapse I34.1 and 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 [facility] [address] [place] [id number] [place] [address] 00594- 3707 Feb, Post-traumatic stress disorder, chronic F43.12 ; Anxiety F41.9 ; Problems related to release from half-way Z65.2 and BMI 40.0-44.9, adult Z68.41 [facility] [address] [place] [id number] [place] [address] 23585- 1621 Feb, Post-traumatic stress disorder, unspecified F43.10 ; Major depressive disorder, recurrent, moderate F33.1 and Problems related to release from half-way Z65.2 [place] [address] [place] [id number] [place] [address] 80911- 1406 Feb, Left leg pain M79.605 [place] [address] [place] [id number] [place] [address] 48566- 3776 Jan, Post-traumatic stress disorder, unspecified F43.10 ; Major depressive disorder, recurrent, moderate F33.1 and Problems related to release from half-way Z65.2 [place] [address] [place] [id number] [place] [address] 94537- 6486 27 Jan, 2017 [place] [address] [place] [id number] [place] [address] 64405- 1774 Jan, [place] [address] [place] [id number] [place] [address] 90025- 3066 Jan, Anxiety F41.9 [facility] [address] [place] [id number] [place] [address] 00111- 7479 Jan, Left leg pain M79.605 [place] [address] [place] [id number] [place] [address] 05007- 6043 Dec, Left leg pain M79.605 [place] [address] [place] [id number] [place] [address] 53076- 8236 Dec, [place] [address] [place] [id number] [place] [address] 59555- 4969 Dec, Post-traumatic stress disorder, unspecified F43.10 ; Major depressive disorder, recurrent, moderate F33.1 and Problems related to release from half-way Z65.2 [place] [address] [place] [address]- 8467 31 Nov, 2016 Chronic pain G89.29 and Anxiety F41.9 [place] [address] 79871- 7830 24 Nov, 2016 Chronic pain G89.29 and Anxiety F41.9 [place] [address] 07916- 5718 16 Nov, 2016 Post-traumatic stress disorder, unspecified F43.10 ; Major depressive disorder, recurrent, moderate F33.1 and Problems related to release from half-way Z65.2 [place] [address] 13882- 1138 09 Nov, 2016 Other abnormal findings in specimens from other organs, systems and tissues R89.8 ; Other male erectile dysfunction N52.8 ; Body mass index (BMI) of 40.0-44.9 in adult Z68.41 and Morbid (severe) obesity due to excess calories E66.01 [place] [address] 50320- 3443 02 Nov, 2016 Post-traumatic stress disorder, unspecified F43.10 ; Major depressive disorder, recurrent, moderate F33.1 and Problems related to release from half-way Z65.2 [facility] [address] [id number] Oct, Dental examination Z01.20 [place] [address] 10129- 5412 Oct, [place] [address] 01578- 7691 Oct, Encounter for immunization Z23 [place] [address] 60442- 9195 Oct, Chronic pain G89.29 ; Anxiety F41.9 ; Arrhythmia as indication for cardiac pacemaker replacement I49.9 and Glaucoma H40.9 [place] [address] 49463- 4065 Oct, Anxiety F41.9 ; Post-traumatic stress disorder, chronic F43.12 and Problems related to release from half-way Z65.2 [place] [address] [place] [id number] [place] [address]- 3831 07 Oct, 2016 Post-traumatic stress disorder, unspecified F43.10 ; Major depressive disorder, recurrent, moderate F33.1 and Problems related to release from half-way Z65.2 [place] [address] 06665- 7992 30 Sep, 2016 Chronic pain G89.29 and Anxiety F41.9 [place] [address] [place] [id number] [place] [address] 98454- 1946 Sep, Post-traumatic stress disorder, unspecified F43.10 ; Major depressive disorder, recurrent, moderate F33.1 and Problems related to release from half-way Z65.2 [place] [address] 05872- 5737 11 Sep, 2016 Post-traumatic stress disorder, unspecified F43.10 ; Major depressive disorder, recurrent, moderate F33.1 and Problems related to release from half-way Z65.2 [place] [address] [place] [id number] [place] [address] 60702- 0959 Sep, Chronic pain G89.29 [place] [address] [place] [id number] [place] [address] 85491- 8664 Aug, Dental caries, unspecified K02.9 [place] [address] [place] [id number] [place] [address] 77429- 4208 Aug, Sleep apnea, obstructive G47.33 ; Obesity E66.9 ; Chronic pain G89.29 ; HTN (hypertension) I10 ; Major depressive disorder, recurrent, moderate F33.1 ; Anxiety F41.9 ; Chronic tension headaches G44.229 ; Mitral valve prolapse I34.1 ; Arrhythmia as indication for cardiac pacemaker replacement I49.9 ; Dental caries, unspecified K02.9 ; Primary insomnia F51.01 and Hyperlipidemia E78.5 [place] [id number] [place] [address]- [address]46 Aug, Post-traumatic stress disorder, unspecified F43.10 ; Major depressive disorder, recurrent, moderate F33.1 and Problems related to release from half-way Z65.2 [facility] [address] [place] [address] 32959- 0054 Aug, Dental examination Z01.20 [facility] [address] [place] [address] [id number] Aug, Dental examination Z01.20 [facility] [id number] [place] [address] 01289- 0989 Aug, Post-traumatic stress disorder, unspecified F43.10 ; Major depressive disorder, recurrent, moderate F33.1 and Problems related to release from half-way Z65.2 [facility] [address] [id number] [place] [address] 24220- 1821 Aug, Chronic pain G89.29 and Primary insomnia F51.01 [facility] [address] [place] [id number] [place] [address] 84129- 7818 Jul, [facility] [id number] [place] [address] 03522- 1404 Jul, [facility] [address] [id number] [place] [address] 60325- 8938 Jul, Nausea R11.0 [facility] [id number] [place] [address] 43559- 3228 Jul, Arrhythmia as indication for cardiac pacemaker replacement I49.9 [facility] [address] [place] [id number] [place] [address] 49287- 2430 Jul, Post-traumatic stress disorder, unspecified F43.10 ; Major depressive disorder, recurrent, moderate F33.1 and Problems related to release from half-way Z65.2 [facility] [address] [place] [address] 31263- 7510 Jul, Anxiety F41.9 [facility] [id number] [place] [address] 14909- 1761 Jul, Chronic pain G89.29 [place] [address] [place] [id number] [place] [address] 97696- 4328 Jul, Sleep apnea, obstructive G47.33 ; Hyperlipidemia E78.5 ; Chronic pain G89.29 ; Blindness and low vision H54.10 ; Major depressive disorder, recurrent, moderate F33.1 ; Anxiety F41.9 ; Mitral valve prolapse I34.1 ; Arrhythmia as indication for cardiac pacemaker replacement I49.9 ; Primary insomnia F51.01 ; Bilateral headaches R51 and Environmental allergies Z91.09 [place] [address] [place] [address] [id number] [place] [address] 74340- 1256 Jul, Post-traumatic stress disorder, unspecified F43.10 ; Major depressive disorder, recurrent, moderate F33.1 and Problems related to release from half-way Z65.2 [place] [address] [place] [id number] [place] [address] 62868- 9445 June, Post-traumatic stress disorder, chronic F43.12 ; Anxiety F41.9 ; Problems related to release from half-way Z65.2 ; Sleep apnea, obstructive G47.33 and Primary insomnia F51.01 [place] [address] [id number] [place] [address] 88851- 5230 June, [place] [address] [place] [id number] [place] [address] 63067- 6876 June, [place] [address] [place] [id number] [place] [address] 21855- 9936 June, [place] [address] [place] [id number] [place] [address] 29710- 4869 June, Chronic pain G89.29 [place] [address] [place] [id number] [place] [address] 50644- 0444 June, Chronic pain G89.29 [place] [address] [place] [id number] [place] [address] 78440- 9977 June, Lipoma of left lower extremity D17.24 ; Open wound T14.8 and Swelling of left lower extremity M79.89 [place] [address] [place] [address] [id number] [place] [address] 84992- 8531 June, Post-traumatic stress disorder, unspecified F43.10 ; Major depressive disorder, recurrent, moderate F33.1 and Problems related to release from half-way Z65.2 [place] [address] [place] [id number] [place] [address] 11610- 4862 May, Lipoma of left lower extremity D17.24 ; Major depressive disorder, recurrent, moderate F33.1 ; Sleep apnea, obstructive G47.33 ; Hyperlipidemia E78.5 ; Obesity E66.9 ; HTN (hypertension) I10 ; Glaucoma H40.9 ; CAD (coronary artery disease) I25.10 ; Chronic tension headaches G44.229 ; Chronic pain G89.29 ; Anxiety F41.9 ; Nausea R11.0 and Primary insomnia F51.01 [place] [id number] [place] [address] 52911- 1453 May, [place] [address] [place] [id number] [place] [address] 87084- 1613 May, Chronic pain G89.29 [place] [id number] [place] [address] 55508- 8649 May, [place] [id number] [place] [address] 73416- 5368 Apr, Post-traumatic stress disorder, unspecified F43.10 ; Major depressive disorder, recurrent, moderate F33.1 and Problems related to release from half-way Z65.2 [place] [address] [place] [id number] [place] [address] 37891- 6116 Apr, Primary insomnia F51.01 ; Post-traumatic stress disorder, chronic F43.12 and Problems related to release from half-way Z65.2 [place] [address] [place] [address] 32959- 1923 Apr, Post-traumatic stress disorder, unspecified F43.10 ; Major depressive disorder, recurrent, moderate F33.1 and Problems related to release from half-way Z65.2 [place] [address] [place] [id number] [place] [address] 92708- 7764 16 Apr, 2016 [place] [address] [place] [id number] [place], [place] [address]- 626 16 Apr, 2016 Sleep apnea, obstructive G47.33 ; Chronic pain G89.29 ; HTN (hypertension) I10 ; Mitral valve prolapse I34.1 ; Shoulder pain, left M25.512 ; Arrhythmia as indication for cardiac pacemaker replacement I49.9 ; Glaucoma H40.9 ; Bilateral headaches R51 ; Environmental allergies Z91.09 ; Primary insomnia F51.01 and Nausea R11.0 [place] [address] [address] 15 Apr, 2016 [place] [address] [place] [id number] [place] [address] Apr, [place] [address] [address] Apr, Post-traumatic stress disorder, unspecified F43.10 ; Major depressive disorder, recurrent, moderate F33.1 and Problems related to release from half-way Z65.2 [place] [address] [place] [id number] [place] [address] 07 Apr, 2016 HTN (hypertension) I10 [place] [address] [place] [id number] [place] [address]- [address] Apr, HTN (hypertension) I10 [place] [address] [place] [id number] [place] [address]- 0199 14 Mar, 2016 Chronic pain G89.29 ; Primary insomnia F51.01 and Problems related to release from half-way Z65.2 [facility] [id number] [place] [address] 11958- 5133 07 Mar, 2016 Post-traumatic stress disorder, unspecified F43.10 ; Major depressive disorder, recurrent, moderate F33.1 and Problems related to release from half-way Z65.2 [place] [address] [place] [address] Feb, Post-traumatic stress disorder, unspecified F43.10 ; Major depressive disorder, recurrent, moderate F33.1 and Problems related to release from half-way Z65.2 [facility] [facility] [id number] [place] [address] 02743- 9791 Feb, Chronic tension headaches G44.[address] 12463- 9411 Feb, Sleep apnea, obstructive G47.33 ; Obesity [...] pacemaker replacement I49.9 and Primary insomnia F51.01 [place] [id number] [place] [address] 61698- 8925 Feb, Post-traumatic stress disorder, unspecified F43.10 and Chronic pain G89.29 [place] [id number] [place] [address] 93559- 6436 Feb, [facility] [id number] [place] [address] [id number] Feb, Dental caries K02.9 [place] [id number] [place] [address] 62792- 4623 Feb, [place] [id number] [place] [address] 88580- 8611 Feb, Post-traumatic stress disorder, unspecified F43.10 ; Major depressive disorder, recurrent, moderate F33.1 and Problems related to release from half-way Z65.2 [place] [id number] [place] [address] 07225- 1732 Jan, Sleep apnea, obstructive G47.33 and Chronic pain G89.29 [facility] [address] [address] 5[address] Jan, [facility] [id number] [place] [address] 86674- 2508 14 Jan, 2016 Dental examination Z01.20 [facility] [address] [address] 3[address] Jan, [facility] [id number] [place] [address] 06340- 8091 Jan, [place] [id number] [place] [address] 93020- 0102 Dec, Post-traumatic stress disorder, unspecified F43.10 ; Major depressive disorder, recurrent, moderate F33.1 and Problems related to release from half-way Z65.2 [place] [id number] [place] [address] 80792- 7435 Dec, Encounter for immunization Z23 ; Problems related to release from half-way Z65.2 ; Sleep apnea, obstructive G47.33 and Post-traumatic stress disorder, chronic F43.12 [place] [id number] [place] [address] 82955- 3386 18 Dec, 2015 Sleep apnea, obstructive G47.33 ; Hyperlipidemia E78.5 ; Chronic pain G89.29 ; Glaucoma H40.9 ; HTN (hypertension) I10 ; Post-traumatic stress disorder, unspecified F43.10 ; Anxiety F41.9 ; Chronic tension headaches G44.229 ; Mitral valve prolapse I34.1 and CAD (coronary artery disease) I25.10 [facility] [address] [address] 1504 15 Dec, 2015 Post-traumatic stress disorder, unspecified F43.10 ; Major depressive disorder, recurrent, moderate F33.1 and Problems related to release from half-way Z65.2 [address] [address] 5082 Nov, Chronic pain G89.[address] [id number] [address] Nov, Post-traumatic stress disorder, unspecified F43.10 ; Major depressive disorder, recurrent, moderate F33.1 and Problems related to release from half-way Z65.2 [facility] [address] [place] [address] 50799- 0351 Oct, [facility] [id number] [place] [address] 480435- 6066 Oct, [facility] [id number] [place] [address] 88387- 2645 16 Oct, 2015 Post-traumatic stress disorder, unspecified F43.10 ; Major depressive disorder, recurrent, moderate F33.1 and Problems related to release from half-way Z65.2 [facility] [id number] [place] [address] 48697- 7514 08 Oct, 2015 [facility] [id number] [place] [address] 33723- 7023 07 Oct, 2015 Environmental allergies Z91.09 ; Cough R05 and 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 [facility] [id number] [place] [address] 83988- 7711 Sep, [facility] [id number] [place] [address] 85925- 1328 Sep, Post-traumatic stress disorder, unspecified F43.10 ; Major depressive disorder, recurrent, moderate F33.1 and Problems related to release from half-way Z65.2 [facility] [address] [place] [address] 49432- 7124 Sep, Chronic pain G89.29 [facility] [id number] [place] [address] 19121- 4602 Sep, Pain in left shoulder M25.512 ; Pain in right shoulder M25.511 and Other chronic pain G89.29 [facility] [id number] [place] [address] 08606- 1441 Sep, [facility] [address] [address]- 0984 Sep, [facility] [id number] [place] [address] 97845- 6139 Sep, [facility] [id number] [place] [address] [id number] Aug, Dental examination Z01.20 [facility] [id number] [place] [address] 36053- 7334 Aug, Post-traumatic stress disorder, unspecified F43.10 ; Open- angle glaucoma of both 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 and Problems related to release from half-way Z65.2 [facility] [id number] [place] [address] 40771- 6886 Aug, [facility] [id number] [place] [address] 08103- 4045 Aug, Sleep apnea, obstructive G47.33 ; Obesity E66.9 ; Hyperlipidemia E78.5 ; Bilateral headaches R51 ; HTN (hypertension) I10 ; Post- traumatic stress disorder, unspecified F43.10 ; Anxiety F41.9 ; Neuropathy G62.9 ; Glaucoma H40.9 and Chronic pain G89.29 [facility] [id number] [place] [address] [id number] Aug, Encounter for dental examination Z01.20 [facility] [id number] [place] [address] 77450- 2256 Aug, Post-traumatic stress disorder, unspecified F43.10 ; Major depressive disorder, recurrent, moderate F33.1 and Problems related to release from half-way Z65.2 [facility] [id number] [place] [address] 89311- 6822 Aug, [facility] [id number] [place] [address] 61538- 4015 Jul, [facility] [id number] [place] [address] 08323- 3530 Jul, Post-traumatic stress disorder, unspecified F43.10 and Major depressive disorder, recurrent, moderate F33.1 [facility] [id number] [place] [address] 28805- 2260 Jul, [facility] [id number] [address]- 0590 Jul, [facility] [id number] [place] [address] 59835- 6089 Jul, Chronic pain G89.29 [facility] [id number] [place] [address] 99280- 8950 June, Post-traumatic stress disorder, unspecified F43.10 and Major depressive disorder, recurrent, moderate F33.1 [facility] [address] [address]- 9851 June, [facility] [id number] [place] [address] 04893- 9897 June, Chronic pain G89.29 [facility] [id number] [place] [address] 94306- 7473 June, Post-traumatic stress disorder, unspecified F43.10 and Major depressive disorder, recurrent, moderate F33.1 [facility] [address] [address]- 6257 May, Post-traumatic stress disorder, unspecified F43.10 and Major depressive disorder, recurrent, moderate F33.1 [facility] [address] [address]- 7943 May, [facility] [id number] [place] [address] 43087- 0614 May, [facility] [id number] [address]- 5662 May, [facility] [address], [place] [address]- 2585 Apr, [facility] [id number] [place] [address] 08532- 4197 Apr, Post-traumatic stress disorder, unspecified F43.10 and Sleep apnea, obstructive G47.33 [facility] [id number] [place] [address] 31127- 1818 31 Apr, 2015 [facility] [id number] [place] [address] 18047- 4426 Apr, Shoulder pain, left M25.512 [facility] [id number] [place] [address] 94575- 6370 18 Apr, 2015 Post-traumatic stress disorder, unspecified F43.10 and Major depressive disorder, recurrent, moderate F33.1 [facility] [id number] [place] [address] 80472- 0866 17 Apr, 2015 [facility] [id number] [place] [address] 46101- 4133 Apr, [facility] [id number] [place] [address] 56709- 9099 08 Apr, 2015 [facility] [id number] [place] [address] 23186- 6075 07 Apr, 2015 Left shoulder pain M25.512 [facility] [id number] [place] [address] 93292- 5577 Mar, [facility] [id number] [place] [address] 97319- 3130 Mar, [facility] [id number] [place] [address] 15697- 2493 18 Mar, 2015 [facility] [id number] [place] [address] 43942- 1201 12 Mar, 2015 Sleep apnea, obstructive G47.33 ; Obesity E66.9 ; Chronic pain G89.29 ; Hyperlipidemia E78.5 ; HTN (hypertension) I10 ; Blindness and low vision H54.10 ; Major depressive disorder, recurrent, moderate F33.1 and Anxiety F41.9 [facility] [id number] [place] [address] 80132- 1350 Mar, [facility] [id number] [place] [address] 35275- 2527 Mar, Post-traumatic stress disorder, unspecified F43.10 and Major depressive disorder, recurrent, moderate F33.1 [facility] [id number] [place] [address] 11457- 3226 08 Mar, 2015 [facility] [id number] [place] [address] 65579- 8617 04 Mar, 2015 HTN (hypertension) I10 ; Blindness and low vision H54.10 ; Obesity E66.9 ; Hyperlipidemia E78.5 ; Glaucoma H40.9 ; Chronic pain G89.29 and CAD (coronary artery disease) I25.10 [place] [id number] [place] [address] 69749- 6074 Feb, [place] [id number] [place] [address] 55560- 6277 Feb, Post-traumatic stress disorder, unspecified F43.10 ; Obesity E66.9 ; Sleep apnea, obstructive G47.33 and 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 [place] [id number] [place] [address] 05187- 9094 Feb, Post-traumatic stress disorder, unspecified F43.10 and Major depressive disorder, recurrent, moderate F33.1 [facility] [id number] [place] [address] 02612- 2064 Feb, [place] [id number] [place] [address] 35968- 6071 Feb, [place] [id number] [place] [address] 52288- 6398 Feb, HTN (hypertension) I10 ; Post-traumatic stress disorder, unspecified F43.10 ; Blindness and low vision H54.10 ; Obesity E66.9 ; Hyperlipidemia E78.5 ; Chronic pain G89.29 ; Glaucoma H40.9 ; Mitral valve prolapse I34.1 and Bilateral headaches R51 [facility] [id number] [place] [address] 76236- 2652 Feb, [facility] [address] 54120- 7222 Feb, Post-traumatic stress disorder, unspecified F43.10 and Major depressive disorder, recurrent, moderate F33.1 [place] [address] 84603- 4179 Feb, [place] [facility] [address] 56169- 2946 Feb, [facility] [address] 42334- 9657 Jan, [facility] [address] 64662- 2510 Jan, [facility] [id number] [place] [address] 29972- 6381 Jan, Obesity E66.9 ; HTN (hypertension) I10 ; Blindness and low vision H54.10 ; Major depressive disorder, recurrent, moderate F33.1 ; Glaucoma H40.9 ; Hyperlipidemia E78.5 ; Sleep apnea, obstructive G47.33 ; Chronic pain G89.29 ; Anxiety F41.9 ; Chronic tension headaches G44.229 and Cough R05 [facility] [id number] [place] [address] 39153- 4632 Jan, [place] [address] 25851- 3402 Jan, [place] [id number] [place] [address] 54346- 0324 Jan, Post-traumatic stress disorder, unspecified F43.10 ; Obesity E66.9 ; Sleep apnea, obstructive G47.33 and 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 [facility] [id number] [place] [address] 62652- 0855 Jan, [place] [address]- 0918 Jan, Post-traumatic stress disorder, unspecified F43.10 and Major depressive disorder, recurrent, moderate F33.[address] 16743- 1041 Dec, [facility] [address] 72731- 1315 Dec, Sleep apnea, obstructive G47.33 ; Obesity E66.9 ; Hyperlipidemia E78.5 ; Glaucoma H40.9 ; Chronic pain G89.29 ; HTN (hypertension ) I10 ; Blindness and low vision H54.10 ; Anxiety F41.9 and CAD (coronary artery disease) I25.[address] 77093- 3843 Nov, [address] 52128- 6350 Nov, [address] 98583- 1286 Nov, [address] 10556- 8409 Nov, [address] 07897- 2029 Nov, [address] 61119- 6960 Nov, Encounter for immunization Z23 ; Sleep apnea, obstructive G47.33 ; Obesity E66.9 ; Hyperlipidemia E78.5 ; Glaucoma H40.9 ; Chronic pain G89.29 ; Anxiety F41.9 ; Chronic tension headaches G44.229 and HTN (hypertension ) I10 [address] 02652- 7068 Nov, [facility] [address] [address]- 9571 14 Nov, 2014 [facility] [id number] [place] [address] 51580- 3492 06 Nov, 2014 Dizziness R42 [facility] [id number] [place] [address] 05943- 3632 Nov, [facility] [id number] [place] [address] 07244- 5127 29 Oct, 2014 [facility] [id number] [place] [address] 48759- 4306 28 Oct, 2014 [facility] [id number] [place] [address] 02069- 1902 Oct, [facility] [id number] [place] [address] 06566- 6667 Oct, [facility] [id number] [place] [address] 68153- 7446 Oct, Dizziness 780.4 ; Essential hypertension 401.9 ; Obesity 278.00 ; Hyperlipidemia 272.4 ; Chronic pain 338.29 ; Glaucoma 365.9 and Anxiety 300.00 [facility] [id number] [place] [address] 12897- 8658 Oct, Essential hypertension 401.9 ; Hyperlipidemia 272.4 ; Glaucoma 365.9 ; Obesity 278.00 ; Chronic pain 338.29 and Allergy to insects V15.06 [facility] [address], [place] [address]- 3681 Sep, [facility] [id number] [place] [address] 63864- 7385 Sep, [facility] [id number] [place] [address] 08778- 1964 Sep, [facility] [address], [place] [address]- 8021 Sep, [facility] [address] [address] 4823 Aug, Essential hypertension 401.9 ; Obesity 278.00 ; Hyperlipidemia 272.4 ; Glaucoma 365.9 ; Lipoma 214.9 ; Mitral valve prolapse 424.0 ; Angina at rest 413.9 ; Lymphedema 457.1 and Chronic pain 338.29 IMMUNIZATIONS No Known Immunizations SOCIAL HISTORY Never Assessed REASON FOR VISIT Blood pressure check-[facility] PLAN OF CARE VITAL SIGNS Height 67 in 2017-10-27 Blood pressure systolic 138 mmHg 2017-10-27 Blood pressure diastolic 88 mmHg 2017-10-27 MEDICATIONS Unknown Medications RESULTS No Results PROCEDURES [...]
--- OUTSIDE RECORDS SUMMARY | 2018-02-04 14:15 | XMS REPORT ---
Author Author CJ EDGE [facility] Address [address] [place] [address] Care Team Providers Care Crib Attendant Name Role Phone CJ EDGE Unavailable PROBLEMS Type Condition ICD9-CM Code GZX07-YA Code Onset Dates Condition Status SNOMED Code Problem Hyperlipidemia E78.5 Active 70290437 Problem Sleep apnea, obstructive G47.33 Active 00471819 Problem Primary insomnia F51.01 Active 0704087 Problem Chronic pain G89.29 Active 49711599 Problem Morbid (severe) obesity due to excess calories E66.01 Active 389035229 Problem Myocarditis, unspecified chronicity, 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 Active 16508198 Problem Other male erectile dysfunction N52.8 Active 552752678 Problem 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 Active 435205895 Problem Body mass index (BMI) of 40.0-44.9 in adult Z68.41 Active 289357362 Problem Supraventricular tachycardia I47.1 Active 6594221 Problem Insomnia disorder with non-sleep disorder mental comorbidity G47.00 Active 56268127 Problem Chronic tension headaches G44.229 Active 598819280 Problem HTN (hypertension) I10 Active 99855415 Problem Blindness and low vision H54.10 Active 371574131 Problem Chronic pain syndrome G89.4 Active 851561514 Problem Migraine without aura and without status migrainosus, not intractable G43.009 Active 875438135 Problem Sarcoidosis D86.9 Active 44601022 Problem Problems related to release from group home Z65.2 Active 129674627983812 Problem 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 Active 20365572 Problem Mitral valve prolapse I34.1 Active 277632572 Problem Anxiety F41.9 Active 98131739 Problem Major depressive disorder, recurrent, moderate F33.1 Active 64831702 Problem Environmental allergies Z91.09 Active 750906544 Problem Arrhythmia as indication for cardiac pacemaker replacement I49.9 Active 07896102 Problem CAD (coronary artery disease) I25.10 Active 55923137 Problem Post-traumatic stress disorder, chronic F43.12 Active 261106539 ALLERGIES No Information ENCOUNTERS Encounter Location Date Diagnosis [facility] [id number] [place] [address] 92414- 2618 Dec, [facility] [id number] [place] [address] 39683- 5441 16 Nov, 2017 [facility] [address] 81419- 9401 28 Oct, 2017 [facility] [id number] [place] [address] [id number] Oct, Dental examination Z01.20 [place] [address] 85480- 3861 Oct, [facility] [id number] [place] [address] 51117- 7391 Oct, Post-traumatic stress disorder, chronic F43.12 ; Insomnia disorder with non-sleep disorder mental comorbidity G47.00 and BMI 40.0-44.9, adult Z68.41 [facility] [id number] [place] [address] 97523- 5595 19 Oct, 2017 [facility] [id number] [place] [address] 77123 -9548 18 Oct, 2017 Insect bite (nonvenomous), left lower leg, initial encounter S80.862A ; Bitten or stung by nonvenomous insect and other nonvenomous arthropods, initial encounter W57.XXXA and BMI 40.0-44.9, adult Z68.41 [facility] [id number] [place] [address] 67399- 5849 06 Oct, 2017 Left leg pain M79.605 [place] [facility] [id number] [place] [address] 19907- 0938 04 Oct, 2017 Post-traumatic stress disorder, unspecified F43.10 ; Major depressive disorder, recurrent, moderate F33.1 and Problems related to release from group home Z65.2 [facility] [address] [address] Sep, Arrhythmia as indication for cardiac pacemaker replacement I49.9 [facility] [id number] [place] [address] 70263- 6747 Sep, [facility] [id number] [place] [address] 20661- 9341 Sep, HTN (hypertension) I10 [facility] [id number] [place] [address] 34061- 9079 17 Sep, 2017 [facility] [address] 83698- 7542 16 Sep, 2017 Body mass index (BMI) of 40.0-44.9 in adult Z68.41 ; Chronic pain G89.29 and Supraventricular tachycardia I47.1 [facility] [id number] [place] [address] 00596- 4447 Sep, [facility] [id number] [place] [address] 81768- 7775 Sep, Sarcoidosis D86.9 [facility] [id number] [place] [address] 55329- 8374 Sep, Sarcoidosis D86.9 [facility] [id number] [place] [address] 27061- 1721 Sep, [facility] [id number] [place] [address] 60521- 0771 Sep, [facility] [id number] [place] [address] 03359- 3170 Sep, [facility] [id number] [place] [address] 61572- 7908 Sep, [facility] [id number] [place] [address] 49613- 9092 Sep, Left leg pain M79.605 [facility] [address] [address] 7516 Sep, HTN (hypertension) I10 [facility] [address] [place] [address] 35929- 8386 Sep, [facility] [address] [address]- 7056 Sep, Post-traumatic stress disorder, unspecified F43.10 ; Major depressive disorder, recurrent, moderate F33.1 and Problems related to release from group home Z65.2 [facility] [address] [address]- 5976 Sep, [facility] [id number] [place] [address] 26580- 8886 Aug, [facility] [id number] [place] [address] 68934- 4476 Aug, Sarcoidosis D86.9 [facility] [address] [place] [address] 14823- 8326 Aug, Sarcoidosis D86.9 [facility] [id number] [place] [address] 39900- 8796 Aug, HTN (hypertension) I10 [facility] [address] [address]- 0976 Aug, Post-traumatic stress disorder, unspecified F43.10 ; Major depressive disorder, recurrent, moderate F33.1 and Problems related to release from group home Z65.2 [facility] [address] [address]- 7586 Aug, [facility] [address] [place] [address] 56260- 2326 Aug, Left leg pain M79.605 [facility] [address] [address]- 6089 Jul, Post-traumatic stress disorder, chronic F43.12 ; Anxiety F41.9 ; Problems related to release from group home Z65.2 and BMI 40.0-44.9, adult Z68.41 [facility] [id number] [place] [address] 40176- 6786 20 Jul, 2017 HTN (hypertension) I10 ; Body mass index (BMI) of 40.0-44.9 in adult Z68.41 ; Acute swimmer''s ear of both sides H60.333 and Chronic pain G89.29 [place] [facility] [address] 30475- 7547 19 Jul, 2017 Glaucoma H40.9 [facility] [facility] [address] 39606- 6473 14 Jul, 2017 [facility] [facility] [address] 02839- 9087 13 Jul, 2017 Sarcoidosis D86.9 [facility] [facility] [address] 95598- 5409 12 Jul, 2017 Left leg pain M79.605 [place] [facility] [address] 32674- 4025 12 Jul, 2017 Sarcoidosis D86.9 [facility] [address] 33784- 7637 Jul, Post-traumatic stress disorder, unspecified F43.10 ; Major depressive disorder, recurrent, moderate F33.1 and Problems related to release from group home Z65.2 [facility] [id number] [place] [address] 26111- 3855 June, [facility] [id number] [place] [address] 56777 -0658 June, Sore throat J02.9 and BMI 40.0-44.9, adult Z68.41 [place] [id number] [place] [address] 20456- 0762 June, [facility] [address] 11838- 8677 June, [facility] [address] [address]- 8638 June, [facility] [address] [place] [address] 70236- 0215 June, Left leg pain M79.605 [facility] [id number] [place] [address] 43668- 7153 June, Sarcoidosis D86.9 [facility] [id number] [place] [address] 80297- 8246 June, [facility] [id number] [place] [address] 88343- 1573 June, [facility] [id number] [place] [address] 96193- 2721 June, Left leg pain M79.605 [facility] [id number] [place] [address] 22638- 5869 May, [facility] [id number] [place] [address] 63921- 6135 May, [facility] [id number] [place] [address] 36469- 0446 May, [facility] [address], [place] [address]- 8785 May, Left leg pain M79.605 [facility] [address] [place] [address] 93209- 5451 May, Post-traumatic stress disorder, unspecified F43.10 ; Major depressive disorder, recurrent, moderate F33.1 and Problems related to release from group home Z65.2 [facility] [address] [address]- 9342 May, Chronic pain G89.29 ; Anxiety F41.9 ; Chest pain, unspecified type R07.9 and BMI 40.0-44.9, adult Z68.41 [facility] [id number] [place] [address] 63922- 9468 30 Apr, 2017 [facility] [id number] [place] [address] 88848- 8563 29 Apr, 2017 Left leg pain M79.605 [facility] [id number] [place] [address] 27473- 7662 27 Apr, 2017 Post-traumatic stress disorder, unspecified F43.10 ; Problems related to release from group home Z65.2 ; Anxiety F41.9 and BMI 40.0-44.9 , adult Z68.41 [facility] [id number] [place] [address] 19156- 5993 Apr, [facility] [address] 87744- 2041 Apr, Left leg pain M79.605 [facility] [address] 40170- 4803 13 Apr, 2017 Post-traumatic stress disorder, unspecified F43.10 ; Major depressive disorder, recurrent, moderate F33.1 and Problems related to release from group home Z65.2 [facility] [id number] [place] [address] 48063- 6827 Apr, [facility] [id number] [place] [address] 73078- 0425 12 Apr, 2017 Chronic pain G89.29 ; 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 ; Morbid (severe) obesity due to excess calories E66.01 ; Anxiety F41.9 and BMI 40.0-44.9, adult Z68.41 [facility] [id number] [place] [address] 06946 -2552 10 Apr, 2017 Sore throat J02.9 and BMI 40.0-44.9, adult Z68.41 [facility] [id number] [place] [address] 13124- 3838 02 Apr, 2017 Left leg pain M79.605 [facility] [id number] [place] [address] [id number] Mar, Dental examination Z01.20 [facility] [id number] [place] [address] 72485- 5568 Mar, [facility] [id number] [place] [address] 77960 -0992 Mar, Cough R05 ; Viral gastroenteritis A08.4 and BMI 40.0-44.9, adult Z68.41 [place] [address] 16879- 7406 Mar, Left leg pain M79.605 [place] [address] 15393- 0586 Mar, Post-traumatic stress disorder, unspecified F43.10 ; Major depressive disorder, recurrent, moderate F33.1 and Problems related to release from group home Z65.2 [place] [address] 65671- 2995 Feb, Left leg pain M79.605 [facility] [id number] [place] [address] 52441- 1836 Feb, [place] [id number] [place] [address] 85609- 6846 Feb, BMI 40.0-44.9, adult Z68.41 ; Chronic pain syndrome G89.4 ; Migraine without aura and without status migrainosus, not intractable G43.009 ; Mitral valve prolapse I34.1 and 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 [facility] [id number] [place] [address] 56804- 3718 Feb, Post-traumatic stress disorder, chronic F43.12 ; Anxiety F41.9 ; Problems related to release from group home Z65.2 and BMI 40.0-44.9, adult Z68.41 [facility] [facility] [id number] [place] [address] 83062- 1915 Feb, Post-traumatic stress disorder, unspecified F43.10 ; Major depressive disorder, recurrent, moderate F33.1 and Problems related to release from group home Z65.2 [facility] [address] [place] [address] 62184- 8996 Feb, Left leg pain M79.605 [facility] [id number] [place] [address] 19797- 5026 Jan, Post-traumatic stress disorder, unspecified F43.10 ; Major depressive disorder, recurrent, moderate F33.1 and Problems related to release from group home Z65.2 [facility] [id number] [place] [address] 06909- 5010 Jan, [facility] [id number] [place] [address] 15904- 6436 Jan, [facility] [id number] [place] [address] 19325- 0536 Jan, Anxiety F41.9 [facility] [id number] [place] [address] 77327- 2019 Jan, Left leg pain M79.605 [facility] [id number] [place] [address] 869746- 6136 Dec, Left leg pain M79.605 [facility] [id number] [place] [address] 70069- 8526 Dec, [facility] [id number] [place] [address] 005234- 2613 15 Dec, 2016 Post-traumatic stress disorder, unspecified F43.10 ; Major depressive disorder, recurrent, moderate F33.1 and Problems related to release from group home Z65.2 [facility] [id number] [place] [address] 444892- 3286 31 Nov, 2016 Chronic pain G89.29 and Anxiety F41.9 [facility] [id number] [place] [address] 26870- 1756 24 Nov, 2016 Chronic pain G89.29 and Anxiety F41.9 [facility] [address] [place] [address] 73028- 6769 16 Nov, 2016 Post-traumatic stress disorder, unspecified F43.10 ; Major depressive disorder, recurrent, moderate F33.1 and Problems related to release from group home Z65.2 [facility] [id number] [place] [address] 72892- 0594 09 Nov, 2016 Other abnormal findings in specimens from other organs, systems and tissues R89.8 ; Other male erectile dysfunction N52.8 ; Body mass index (BMI) of 40.0-44.9 in adult Z68.41 and Morbid (severe) obesity due to excess calories E66.01 [place] [facility] [address] 684100- 3540 02 Nov, 2016 Post-traumatic stress disorder, unspecified F43.10 ; Major depressive disorder, recurrent, moderate F33.1 and Problems related to release from group home Z65.2 [facility] [address] [id number] Oct, Dental examination Z01.20 [facility] [id number] [place] [address] 15353- 4430 Oct, [facility] [facility] [address] 11187- 0770 Oct, Encounter for immunization Z23 [id number] [place] [address] 01919- 5548 Oct, Chronic pain G89.29 ; Anxiety F41.9 ; Arrhythmia as indication for cardiac pacemaker replacement I49.9 and Glaucoma H40.9 [facility] [id number] [place] [address] 57190- 4090 Oct, Anxiety F41.9 ; Post-traumatic stress disorder, chronic F43.12 and Problems related to release from group home Z65.2 [facility] [id number] [place] [address] 93911- 0929 07 Oct, 2016 Post-traumatic stress disorder, unspecified F43.10 ; Major depressive disorder, recurrent, moderate F33.1 and Problems related to release from group home Z65.2 [place] [address] [address]- 7674 Sep, Chronic pain G89.29 and Anxiety F41.9 [facility] [facility] [address] [place] [address] 39705- 5852 Sep, Post-traumatic stress disorder, unspecified F43.10 ; Major depressive disorder, recurrent, moderate F33.1 and Problems related to release from group home Z65.2 [facility] [id number] [place] [address] 76598- 4207 Sep, Post-traumatic stress disorder, unspecified F43.10 ; Major depressive disorder, recurrent, moderate F33.1 and Problems related to release from group home Z65.2 [facility] [facility] [id number] [place] [address] 26335- 5693 Sep, Chronic pain G89.29 [facility] [id number] [place] [address] 16848- 8193 Aug, Dental caries, unspecified K02.9 [facility] [id number] [place] [address] 29543- 6169 Aug, Sleep apnea, obstructive G47.33 ; Obesity E66.9 ; Chronic pain G89.29 ; HTN (hypertension) I10 ; Major depressive disorder, recurrent, moderate F33.1 ; Anxiety F41.9 ; Chronic tension headaches G44.229 ; Mitral valve prolapse I34.1 ; Arrhythmia as indication for cardiac pacemaker replacement I49.9 ; Dental caries, unspecified K02.9 ; Primary insomnia F51.01 and Hyperlipidemia E78.5 [place] [address] [place] [address] 34721- 1652 Aug, Post-traumatic stress disorder, unspecified F43.10 ; Major depressive disorder, recurrent, moderate F33.1 and Problems related to release from group home Z65.2 [place] [facility] [address] [place] [address] 53260- 9511 Aug, Dental examination Z01.20 [facility] [id number] [id number] Aug, Dental examination Z01.20 [facility] [id number] [place] [address] 07678- 1009 06 Aug, 2016 Post-traumatic stress disorder, unspecified F43.10 ; Major depressive disorder, recurrent, moderate F33.1 and Problems related to release from group home Z65.2 [facility] [id number] [place] [address] 93872- 3899 05 Aug, 2016 Chronic pain G89.29 and Primary insomnia F51.01 [place] [facility] [id number] [place] [address] 29784- 1454 Jul, [facility] [id number] [place] [address] 92057- 2477 Jul, [facility] [id number] [place] [address] 71124- 5142 Jul, Nausea R11.0 [facility] [id number] [place] [address] 27126- 3489 Jul, Arrhythmia as indication for cardiac pacemaker replacement I49.9 [facility] [address] [place] [address] 11241- 6894 Jul, Post-traumatic stress disorder, unspecified F43.10 ; Major depressive disorder, recurrent, moderate F33.1 and Problems related to release from group home Z65.2 [facility] [address] [address]- 7385 09 Jul, 2016 Anxiety F41.9 [facility] [id number] [place] [address] 18223- 8579 08 Jul, 2016 Chronic pain G89.29 [facility] [address] [place] [address] 84383- 6855 02 Jul, 2016 Sleep apnea, obstructive G47.33 ; Hyperlipidemia E78.5 ; Chronic pain G89.29 ; Blindness and low vision H54.10 ; Major depressive disorder, recurrent, moderate F33.1 ; Anxiety F41.9 ; Mitral valve prolapse I34.1 ; Arrhythmia as indication for cardiac pacemaker replacement I49.9 ; Primary insomnia F51.01 ; Bilateral headaches R51 and Environmental allergies Z91.09 [facility] [id number] [place] [address] 60314- 9751 Jul, Post-traumatic stress disorder, unspecified F43.10 ; Major depressive disorder, recurrent, moderate F33.1 and Problems related to release from group home Z65.2 [facility] [facility] [id number] [place] [address] 60978- 9884 June, Post-traumatic stress disorder, chronic F43.12 ; Anxiety F41.9 ; Problems related to release from group home Z65.2 ; Sleep apnea, obstructive G47.33 and Primary insomnia F51.01 [place] [facility] [id number] [place] [address] 48410- 9663 June, [facility] [id number] [place] [address] 51950- 9666 June, [facility] [facility] [id number] [place] [address] 96954- 8015 June, [facility] [id number] [place] [address] 31617- 9107 June, Chronic pain G89.29 [facility] [id number] [place] [address] 48018- 3974 June, Chronic pain G89.29 [facility] [id number] [place] [address] 90359- 0319 June, Lipoma of left lower extremity D17.24 ; Open wound T14.8 and Swelling of left lower extremity M79.89 [facility] [id number] [place] [address] 13983- 7056 June, Post-traumatic stress disorder, unspecified F43.10 ; Major depressive disorder, recurrent, moderate F33.1 and Problems related to release from group home Z65.2 [facility] [facility] [id number] [place] [address] 21817- 2508 May, Lipoma of left lower extremity D17.24 ; Major depressive disorder, recurrent, moderate F33.1 ; Sleep apnea, obstructive G47.33 ; Hyperlipidemia E78.5 ; Obesity E66.9 ; HTN (hypertension) I10 ; Glaucoma H40.9 ; CAD (coronary artery disease) I25.10 ; Chronic tension headaches G44.229 ; Chronic pain G89.29 ; Anxiety F41.9 ; Nausea R11.0 and Primary insomnia F51.01 [facility] [facility] [id number] [place] [address] 70289- 2917 May, [place] [address] 40489- 6664 May, Chronic pain G89.29 [place] [address] 40423- 9180 May, [facility] [id number] [place] [address] 84744- 8328 Apr, Post-traumatic stress disorder, unspecified F43.10 ; Major depressive disorder, recurrent, moderate F33.1 and Problems related to release from group home Z65.2 [facility] [facility] [id number] [place] [address] 13071- 8102 Apr, Primary insomnia F51.01 ; Post-traumatic stress disorder, chronic F43.12 and Problems related to release from group home Z65.2 [facility] [id number] [place] [address] 02604- 8616 Apr, Post-traumatic stress disorder, unspecified F43.10 ; Major depressive disorder, recurrent, moderate F33.1 and Problems related to release from group home Z65.2 [place] [facility] [id number] [place] [address] 29065- 9159 Apr, [facility] [id number] [place] [phone] Apr, Sleep apnea, obstructive G47.33 ; Chronic pain G89.29 ; HTN (hypertension) I10 ; Mitral valve prolapse I34.1 ; Shoulder pain, left M25.512 ; Arrhythmia as indication for cardiac pacemaker replacement I49.9 ; Glaucoma H40.9 ; Bilateral headaches R51 ; Environmental allergies Z91.09 ; Primary insomnia F51.01 and Nausea R11.0 [place] [id number] [id number] [place] [phone] Apr, 2016 [place] [id number] [place] [address] [phone] Apr, [facility] [place] [id number] [place] [address] 77860- 6977 Apr, Post-traumatic stress disorder, unspecified F43.10 ; Major depressive disorder, recurrent, moderate F33.1 and Problems related to release from group home Z65.2 [place] [id number] [place] [address] 37759- 3061 07 Apr, 2016 HTN (hypertension) I10 [facility] [id number] [place] [address] 19583- 2170 07 Apr, 2016 HTN (hypertension) I10 [facility] [id number] [place] [address] 01448- 4917 14 Mar, 2016 Chronic pain G89.29 ; Primary insomnia F51.01 and Problems related to release from group home Z65.2 [place] [id number] [place] [address] 17219- 8180 07 Mar, 2016 Post-traumatic stress disorder, unspecified F43.10 ; Major depressive disorder, recurrent, moderate F33.1 and Problems related to release from group home Z65.2 [place] [id number] [place] [address] 21309- 2927 Feb, Post-traumatic stress disorder, unspecified F43.10 ; Major depressive disorder, recurrent, moderate F33.1 and Problems related to release from group home Z65.2 [facility] [id number] [place] [address] 65366- 9912 Feb, Chronic tension headaches G44.229 [place] [address] 97465- 0134 Feb, Sleep apnea, obstructive G47.33 ; Obesity [...] pacemaker replacement I49.9 and Primary insomnia F51.01 [place] [address] 05000- 6717 17 Feb, 2016 Post-traumatic stress disorder, unspecified F43.10 and Chronic pain G89.[address] 46984- 2701 Feb, [facility] [address] [id number] Feb, Dental caries K02.[address] 43822- 8321 06 Feb, 2016 [place] [address] 42959- 1748 Feb, Post-traumatic stress disorder, unspecified F43.10 ; Major depressive disorder, recurrent, moderate F33.1 and Problems related to release from group home Z65.2 [place] [address] 00682- 8427 Jan, Sleep apnea, obstructive G47.33 and Chronic pain G89.[address] 18073- 3999 Jan, [address] 69602- 6665 14 Jan, 2016 Dental examination Z01.20 [place] [address] [address] 78[address] Jan, [facility] [address] [address] 978[address] Jan, [facility] [address] [address] 0849 Dec, Post-traumatic stress disorder, unspecified F43.10 ; Major depressive disorder, recurrent, moderate F33.1 and Problems related to release from group home Z65.2 [place] [address] [address] Dec, Encounter for immunization Z23 ; Problems related to release from group home Z65.2 ; Sleep apnea, obstructive G47.33 and Post-traumatic stress disorder, chronic F43.12 [place] [id number] [place] [address] 51209- 0665 Dec, Sleep apnea, obstructive G47.33 ; Hyperlipidemia E78.5 ; Chronic pain G89.29 ; Glaucoma H40.9 ; HTN (hypertension) I10 ; Post-traumatic stress disorder, unspecified F43.10 ; Anxiety F41.9 ; Chronic tension headaches G44.229 ; Mitral valve prolapse I34.1 and CAD (coronary artery disease) I25.10 [place] [address] [address] 72[address] Dec, Post-traumatic stress disorder, unspecified F43.10 ; Major depressive disorder, recurrent, moderate F33.1 and Problems related to release from group home Z65.2 [place] [id number] [address] 3616 Nov, Chronic pain G89.29 [place] [id number] [place] [address] 68243- 5460 Nov, Post-traumatic stress disorder, unspecified F43.10 ; Major depressive disorder, recurrent, moderate F33.1 and Problems related to release from group home Z65.2 [place] [id number] [place] [address] 59740- 8001 Oct, [facility] [address] [address]- 7383 Oct, [facility] [id number] [place] [address] 25762- 8828 Oct, Post-traumatic stress disorder, unspecified F43.10 ; Major depressive disorder, recurrent, moderate F33.1 and Problems related to release from group home Z65.2 [facility] [id number] [place] [address] 33784- 5660 08 Oct, 2015 [facility] [id number] [place] [address] 33738- 0036 07 Oct, 2015 Environmental allergies Z91.09 ; Cough R05 and 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 [facility] [id number] [address]- 1760 Sep, [facility] [id number] [place] [address] 37986- 4044 Sep, Post-traumatic stress disorder, unspecified F43.10 ; Major depressive disorder, recurrent, moderate F33.1 and Problems related to release from group home Z65.2 [facility] [address] [address]- 4681 Sep, Chronic pain G89.29 [facility] [id number] [place] [address] 97835- 2035 Sep, Pain in left shoulder M25.512 ; Pain in right shoulder M25.511 and Other chronic pain G89.29 [facility] [address] [address]- 9787 Sep, [facility] [id number] [place] [address] 16516- 9277 Sep, [facility] [address] [address]- 4288 Sep, [facility] [id number] [id number] Aug, Dental examination Z01.20 [facility] [id number] [place] [address] 70847- 8332 Aug, Post-traumatic stress disorder, unspecified F43.10 ; Open- angle glaucoma of both 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 and Problems related to release from group home Z65.2 [facility] [id number] [place] [address] 65953- 8524 Aug, [facility] [id number] [place] [address] 62403- 5949 Aug, Sleep apnea, obstructive G47.33 ; Obesity E66.9 ; Hyperlipidemia E78.5 ; Bilateral headaches R51 ; HTN (hypertension) I10 ; Post- traumatic stress disorder, unspecified F43.10 ; Anxiety F41.9 ; Neuropathy G62.9 ; Glaucoma H40.9 and Chronic pain G89.29 [facility] [id number] [place] [address] [id number] Aug, Encounter for dental examination Z01.20 [facility] [id number] [place] [address] 10344- 9919 Aug, Post-traumatic stress disorder, unspecified F43.10 ; Major depressive disorder, recurrent, moderate F33.1 and Problems related to release from group home Z65.2 [place] [id number] [place] [address] 24001- 8641 Aug, [facility] [id number] [place] [address] 87436- 2204 Jul, [facility] [id number] [place] [address] 09657- 8188 Jul, Post-traumatic stress disorder, unspecified F43.10 and Major depressive disorder, recurrent, moderate F33.1 [facility] [id number] [place] [address] 75505- 1489 Jul, [facility] [id number] [place] [address] 38137- 0184 Jul, [facility] [id number] [place] [address] 88216- 5895 Jul, Chronic pain G89.29 [facility] [id number] [place] [address] 32454- 6365 June, Post-traumatic stress disorder, unspecified F43.10 and Major depressive disorder, recurrent, moderate F33.1 [place] [id number] [place] [address] 40609- 0173 June, [facility] [id number] [place] [address] 63407- 8284 June, Chronic pain G89.29 [facility] [id number] [place] [address] 24299- 7321 June, Post-traumatic stress disorder, unspecified F43.10 and Major depressive disorder, recurrent, moderate F33.1 [place] [id number] [place] [address] 04805- 4520 May, Post-traumatic stress disorder, unspecified F43.10 and Major depressive disorder, recurrent, moderate F33.1 [place] [id number] [place] [address] 80248- 3824 May, [facility] [place] [address] [address]- 6454 May, [facility] [id number] [place] [address] 05808- 3700 May, [facility] [id number] [place] [address] 49467- 7977 Apr, [facility] [id number] [place] [address] 76392- 7914 Apr, Post-traumatic stress disorder, unspecified F43.10 and Sleep apnea, obstructive G47.33 [facility] [place] [id number] [place] [address] 90152- 5121 Apr, [facility] [address] [address]- 2239 Apr, Shoulder pain, left M25.512 [facility] [id number] [place] [address] 07051- 4609 Apr, Post-traumatic stress disorder, unspecified F43.10 and Major depressive disorder, recurrent, moderate F33.1 [facility] [id number] [place] [address] 84746- 5210 17 Apr, 2015 [facility] [id number] [place] [address] 07124- 1923 Apr, [facility] [id number] [place] [address] 91787- 2555 Apr, [facility] [id number] [place] [address] 54566- 1907 Apr, Left shoulder pain M25.512 [facility] [id number] [place] [address] 43007- 3264 Mar, [facility] [id number] [place] [address] 23269- 4439 Mar, [facility] [id number] [place] [address] 47429- 4176 Mar, [facility] [id number] [place] [address] 95002- 3169 Mar, Sleep apnea, obstructive G47.33 ; Obesity E66.9 ; Chronic pain G89.29 ; Hyperlipidemia E78.5 ; HTN (hypertension) I10 ; Blindness and low vision H54.10 ; Major depressive disorder, recurrent, moderate F33.1 and Anxiety F41.9 [facility] [id number] [place] [address] 55398- 7039 Mar, [facility] [id number] [place] [address] 96113- 9852 Mar, Post-traumatic stress disorder, unspecified F43.10 and Major depressive disorder, recurrent, moderate F33.1 [place] [id number] [place] [address] 08477- 1980 Mar, [facility] [place] [address]67496- 8833 Mar, HTN (hypertension) I10 ; Blindness and low vision H54.10 ; Obesity E66.9 ; Hyperlipidemia E78.5 ; Glaucoma H40.9 ; Chronic pain G89.29 and CAD (coronary artery disease) I25.10 [place] [id number] [place] [address] 40266- 2040 Feb, [facility] [address] 71584- 0474 Feb, Post-traumatic stress disorder, unspecified F43.10 ; Obesity E66.9 ; Sleep apnea, obstructive G47.33 and 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 [facility] [place] [id number] [place] [address] 72418- 2058 Feb, Post-traumatic stress disorder, unspecified F43.10 and Major depressive disorder, recurrent, moderate F33.1 [place] [id number] [place] [address] 61249- 1544 Feb, [facility] [place] [id number] [place] [address] 02500- 7507 Feb, [facility] [place] [id number] [place] [address] 93581- 7705 Feb, HTN (hypertension) I10 ; Post-traumatic stress disorder, unspecified F43.10 ; Blindness and low vision H54.10 ; Obesity E66.9 ; Hyperlipidemia E78.5 ; Chronic pain G89.29 ; Glaucoma H40.9 ; Mitral valve prolapse I34.1 and Bilateral headaches R51 [place] [id number] [place] [address] 78502- 9154 Feb, [facility] [place] [address] [place] [place] [address]- 6878 Feb, Post-traumatic stress disorder, unspecified F43.10 and Major depressive disorder, recurrent, moderate F33.1 [place] [id number] [place] [address] 30839- 5178 Feb, [facility] [place] [id number] [place] [address] 90413- 2309 Feb, [facility] [id number] [place] [address] 80628- 2025 Jan, [facility] [place] [id number] [place] [address] 49679- 1521 Jan, [facility] [id number] [place] [address] 62536- 4426 Jan, Obesity E66.9 ; HTN (hypertension) I10 ; Blindness and low vision H54.10 ; Major depressive disorder, recurrent, moderate F33.1 ; Glaucoma H40.9 ; Hyperlipidemia E78.5 ; Sleep apnea, obstructive G47.33 ; Chronic pain G89.29 ; Anxiety F41.9 ; Chronic tension headaches G44.229 and Cough R05 [place] [id number] [place] [address] 44643- 5129 Jan, [facility] [id number] [place] [address] 92092- 6383 Jan, [facility] [id number] [place] [address] 43984- 4070 Jan, Post-traumatic stress disorder, unspecified F43.10 ; Obesity E66.9 ; Sleep apnea, obstructive G47.33 and 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 [place] [id number] [place] [address] 99253- 9777 Jan, [facility] [id number] [place] [address] 88798- 0085 Jan, Post-traumatic stress disorder, unspecified F43.10 and Major depressive disorder, recurrent, moderate F33.1 [facility] [id number] [place] [address] 43118- 7910 Dec, [facility] [address] 20223- 9399 Dec, Sleep apnea, obstructive G47.33 ; Obesity E66.9 ; Hyperlipidemia E78.5 ; Glaucoma H40.9 ; Chronic pain G89.29 ; HTN (hypertension ) I10 ; Blindness and low vision H54.10 ; Anxiety F41.9 and CAD (coronary artery disease) I25.10 [facility] [id number] [place] [address] 77119- 5665 Nov, [facility] [address] 54880- 1890 Nov, [facility] [id number] [place] [address] 33365- 8047 Nov, [facility] [address] 71171- 4060 Nov, [facility] [id number] [place] [address] 40263- 8281 Nov, [facility] [id number] [place] [address] 53359- 7806 Nov, Encounter for immunization Z23 ; Sleep apnea, obstructive G47.33 ; Obesity E66.9 ; Hyperlipidemia E78.5 ; Glaucoma H40.9 ; Chronic pain G89.29 ; Anxiety F41.9 ; Chronic tension headaches G44.229 and HTN (hypertension ) I10 [facility] [id number] [place] [address] 18420- 7877 Nov, [facility] [address] 21406- 2419 Nov, [facility] [id number] [place] [address] 03791- 4578 Nov, Dizziness R42 [facility] [address] [address]- 8927 Nov, [facility] [id number] [place] [address] 39197- 5259 Oct, [facility] [id number] [place] [address] 14792- 9223 Oct, [facility] [id number] [place] [address] 26495- 3039 Oct, [facility] [id number] [place] [address] 00085- 0067 Oct, [facility] [id number] [place] [address] 58738- 2181 Oct, Dizziness 780.4 ; Essential hypertension 401.9 ; Obesity 278.00 ; Hyperlipidemia 272.4 ; Chronic pain 338.29 ; Glaucoma 365.9 and Anxiety 300.00 [facility] [id number] [place] [address] 46500- 2120 Oct, Essential hypertension 401.9 ; Hyperlipidemia 272.4 ; Glaucoma 365.9 ; Obesity 278.00 ; Chronic pain 338.29 and Allergy to insects V15.06 [facility] [id number] [place] [address] 00082- 3546 Sep, [facility] [id number] [place] [address] 68679- 2425 Sep, [facility] [id number] [place] [address] 08969- 2903 Sep, [facility] [id number] [place] [address] 02229- 5751 Sep, [facility] [id number] [place] [address] 03284- 5824 Aug, Essential hypertension 401.9 ; Obesity 278.00 [...] patient &/family, 45 minutes, established patient Oct 12, 2017 INSTRUCTIONS MEDICATIONS ADMINISTERED No Known Medications [...]
--- OUTSIDE RECORDS SUMMARY | 2018-02-04 14:16 | XMS REPORT ---
Author Author ALENA ÁLVAREZ [facility] Address [address] [place] [address] Care Team Providers Care Plastic Top Assembler Name Role Phone ALENA ÁLVAREZ Unavailable PROBLEMS Type Condition ICD9-CM Code VAL42-ML Code Onset Dates Condition Status SNOMED Code Problem Hyperlipidemia E78.5 Active 36081070 Problem Sleep apnea, obstructive G47.33 Active 62107227 Problem Primary insomnia F51.01 Active 6633884 Problem Chronic pain G89.29 Active 65691882 Problem Morbid (severe) obesity due to excess calories E66.01 Active 790968809 Problem Myocarditis, unspecified chronicity, 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 Active 37112506 Problem Other male erectile dysfunction N52.8 Active 753998973 Problem 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 Active 627166884 Problem Body mass index (BMI) of 40.0-44.9 in adult Z68.41 Active 127980779 Problem Supraventricular tachycardia I47.1 Active 6270082 Problem Insomnia disorder with non-sleep disorder mental comorbidity G47.00 Active 58632532 Problem Chronic tension headaches G44.229 Active 646712814 Problem HTN (hypertension) I10 Active 08249433 Problem Blindness and low vision H54.10 Active 649463236 Problem Chronic pain syndrome G89.4 Active 958504125 Problem Migraine without aura and without status migrainosus, not intractable G43.009 Active 502936349 Problem Sarcoidosis D86.9 Active 35079068 Problem Problems related to release from usp Z65.2 Active 707614737779391 Problem 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 Active 69705792 Problem Mitral valve prolapse I34.1 Active 860703284 Problem Anxiety F41.9 Active 46831730 Problem Major depressive disorder, recurrent, moderate F33.1 Active 81081786 Problem Environmental allergies Z91.09 Active 768527049 Problem Arrhythmia as indication for cardiac pacemaker replacement I49.9 Active 65667686 Problem CAD (coronary artery disease) I25.10 Active 16675977 Problem Post-traumatic stress disorder, chronic F43.12 Active 664881284 ALLERGIES No Information ENCOUNTERS Encounter Location Date Diagnosis [facility] [place] [address] [address] Dec, [facility] [place] [id number] [place] [address] 97614- 8562 16 Nov, 2017 [facility] [place] [address] [address]- [address] 28 Oct, 2017 [facility] [address] [id number] 28 Oct, 2017 Dental examination Z01.20 [place] [address] [address]- 7561 Oct, [facility] [place] [address] [address]- [address] Oct, Post-traumatic stress disorder, chronic F43.12 ; Insomnia disorder with non-sleep disorder mental comorbidity G47.00 and BMI 40.0-44.9, adult Z68.41 [place] [address] 79403- 04[address] 19 Oct, 2017 [facility] [id number] [place] [address] 91197 -8920 18 Oct, 2017 Insect bite (nonvenomous), left lower leg, initial encounter S80.862A ; Bitten or stung by nonvenomous insect and other nonvenomous arthropods, initial encounter W57.XXXA and BMI 40.0-44.9, adult Z68.41 [facility] [place] [id number] [place] [address] 47161- 3635 06 Oct, 2017 Left leg pain M79.605 [facility] [place] [id number] [place] [address] 39428- 3105 04 Oct, 2017 Post-traumatic stress disorder, unspecified F43.10 ; Major depressive disorder, recurrent, moderate F33.1 and Problems related to release from usp Z65.2 [facility] [place] [id number] [address] Sep, Arrhythmia as indication for cardiac pacemaker replacement I49.9 [facility] [place] [id number] [place] [address] 40968- 4315 Sep, [facility] [place] [id number] [place] [address] 04256- 3888 Sep, HTN (hypertension) I10 [facility] [place] [id number] [place] [address] 29852- 7945 17 Sep, 2017 [facility] [place] [id number] [place] [address] 96365- 3697 16 Sep, 2017 Body mass index (BMI) of 40.0-44.9 in adult Z68.41 ; Chronic pain G89.29 and Supraventricular tachycardia I47.1 [facility] [place] [id number] [place] [address] 56570- 2341 15 Sep, 2017 [facility] [place] [id number] [place] [address] 37199- 8394 Sep, Sarcoidosis D86.9 [facility] [place] [id number] [place] [address] 00205- 0510 Sep, Sarcoidosis D86.9 [facility] [place] [id number] [place] [address] 52371- 9991 Sep, [facility] [place] [id number] [place] [address] 91971- 5104 Sep, [facility] [place] [id number] [place] [address] 39025- 2568 Sep, [facility] [place] [id number] [place] [address] 93282- 1642 Sep, [facility] [place] [address] [address]- 9874 Sep, Left leg pain M79.605 [facility] [place] [id number] [address] 7598 Sep, HTN (hypertension) I10 [facility] [place] [id number] [place] [address] 43049- 4346 Sep, [facility] [address] [address] 8[address] Sep, Post-traumatic stress disorder, unspecified F43.10 ; Major depressive disorder, recurrent, moderate F33.1 and Problems related to release from usp Z65.2 [facility] [place] [id number] [place] [address] 69497- 2275 Sep, [facility] [place] [id number] [place] [address] 63358- 2676 Aug, [facility] [place] [id number] [place] [address] 18881- 1626 Aug, Sarcoidosis D86.9 [facility] [place] [id number] [place] [address] 55112- 4626 Aug, Sarcoidosis D86.9 [facility] [place] [id number] [place] [address] 02564- 7071 Aug, HTN (hypertension) I10 [facility] [place] [address] [address]- 2635 Aug, Post-traumatic stress disorder, unspecified F43.10 ; Major depressive disorder, recurrent, moderate F33.1 and Problems related to release from usp Z65.2 [facility] [place] [address] [address]- 8962 Aug, [facility] [place] [id number] [place] [address] 10069- 1943 Aug, Left leg pain M79.605 [facility] [place] [address] [address]- 7358 Jul, Post-traumatic stress disorder, chronic F43.12 ; Anxiety F41.9 ; Problems related to release from usp Z65.2 and BMI 40.0-44.9, adult Z68.41 [facility] [place] [id number] [place] [address] 33876- 9962 20 Jul, 2017 HTN (hypertension) I10 ; Body mass index (BMI) of 40.0-44.9 in adult Z68.41 ; Acute swimmer''s ear of both sides H60.333 and Chronic pain G89.29 [facility] [place] [address] 07856- 6009 19 Jul, 2017 Glaucoma H40.9 [place] [address] 14296- 8164 14 Jul, 2017 [place] [address] 40382- 9996 13 Jul, 2017 Sarcoidosis D86.9 [facility] [place] [address] 58521- 6382 12 Jul, 2017 Left leg pain M79.605 [place] [address] 67967- 6805 12 Jul, 2017 Sarcoidosis D86.9 [place] [address] 33212- 7665 Jul, Post-traumatic stress disorder, unspecified F43.10 ; Major depressive disorder, recurrent, moderate F33.1 and Problems related to release from usp Z65.2 [facility] [place] [id number] [place] [address] 74221- 6637 31 Jun, [address] [facility] [id number] [place] [address] 20969 -6537 30 Jun, 2017 Sore throat J02.9 and BMI 40.0-44.9, adult Z68.41 [facility] [place] [id number] [place] [address] 87901- 2406 June, [facility] [place] [address] 38085- 4815 June, [facility] [place] [address] [address]- 5260 June, [facility] [place] [id number] [place] [address] 07229- 5882 June, Left leg pain M79.605 [facility] [place] [id number] [place] [address] 28443- 6715 June, Sarcoidosis D86.9 [facility] [place] [id number] [place] [address] 83705- 2147 June, [facility] [place] [id number] [place] [address] 40589- 0826 June, [facility] [place] [id number] [place] [address] 03529- 0281 June, Left leg pain M79.605 [facility] [place] [id number] [place] [address] 37943- 9596 May, [facility] [place] [id number] [place] [address] 19873- 5931 May, [facility] [place] [id number] [place] [address] 42456- 0479 May, [facility] [place] [address], [place] [address]- 4632 May, Left leg pain M79.605 [facility] [place] [id number] [place] [address] 13074- 6183 May, Post-traumatic stress disorder, unspecified F43.10 ; Major depressive disorder, recurrent, moderate F33.1 and Problems related to release from usp Z65.2 [facility] [place] [id number] [place] [address] 48070- 6445 May, Chronic pain G89.29 ; Anxiety F41.9 ; Chest pain, unspecified type R07.9 and BMI 40.0-44.9, adult Z68.41 [facility] [place] [id number] [place] [address] 43819- 5202 30 Apr, 2017 [facility] [place] [address] 18953- 5045 Apr, Left leg pain M79.605 [facility] [place] [address] 91843- 2617 Apr, Post-traumatic stress disorder, unspecified F43.10 ; Problems related to release from usp Z65.2 ; Anxiety F41.9 and BMI 40.0-44.9 , adult Z68.41 [facility] [place] [address] 57286- 4864 Apr, [facility] [place] [address] 84367- 0206 Apr, Left leg pain M79.605 [facility] [place] [address] 53917- 8954 13 Apr, 2017 Post-traumatic stress disorder, unspecified F43.10 ; Major depressive disorder, recurrent, moderate F33.1 and Problems related to release from usp Z65.2 [facility] [place] [address] 33439- 0062 Apr, [facility] [place] [address] 06524- 9274 Apr, Chronic pain G89.29 ; 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 ; Morbid (severe) obesity due to excess calories E66.01 ; Anxiety F41.9 and BMI 40.0-44.9, adult Z68.41 [facility] [id number] [place] [address] 78639 -5049 Apr, Sore throat J02.9 and BMI 40.0-44.9, adult Z68.41 [facility] [place] [id number] [place] [address] 45511- 5022 02 Apr, 2017 Left leg pain M79.605 [facility] [address] [id number] Mar, Dental examination Z01.20 [facility] [place] [id number] [place] [address] 47101- 8186 Mar, [facility] [id number] [place] [address] 99389 -4155 Mar, Cough R05 ; Viral gastroenteritis A08.4 and BMI 40.0-44.9, adult Z68.41 [place] [id number] [place] [address] 02508- 3198 Mar, Left leg pain M79.605 [place] [address] 74060- 9943 Mar, Post-traumatic stress disorder, unspecified F43.10 ; Major depressive disorder, recurrent, moderate F33.1 and Problems related to release from usp Z65.2 [place] [id number] [place] [address] 13898- 7828 Feb, Left leg pain M79.605 [facility] [place] [id number] [place] [address] 22020- 3280 Feb, [place] [id number] [place] [address] 21516- 3816 Feb, BMI 40.0-44.9, adult Z68.41 ; Chronic pain syndrome G89.4 ; Migraine without aura and without status migrainosus, not intractable G43.009 ; Mitral valve prolapse I34.1 and 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 [place] [id number] [place] [address] 76559- 8265 Feb, Post-traumatic stress disorder, chronic F43.12 ; Anxiety F41.9 ; Problems related to release from usp Z65.2 and BMI 40.0-44.9, adult Z68.41 [place] [id number] [place] [address] 42811- 5135 Feb, Post-traumatic stress disorder, unspecified F43.10 ; Major depressive disorder, recurrent, moderate F33.1 and Problems related to release from usp Z65.2 [facility] [place] [id number] [place] [address] 70517- 7141 Feb, Left leg pain M79.605 [facility] [place] [id number] [place] [address] 96528- 8166 27 Jan, 2017 Post-traumatic stress disorder, unspecified F43.10 ; Major depressive disorder, recurrent, moderate F33.1 and Problems related to release from usp Z65.2 [facility] [place] [id number] [place] [address] 95909- 2380 Jan, [facility] [place] [id number] [place] [address] 56643- 5462 Jan, [facility] [place] [id number] [place] [address] 09467- 1330 Jan, Anxiety F41.9 [facility] [place] [id number] [place] [address] 80116- 8480 Jan, Left leg pain M79.605 [facility] [place] [id number] [place] [address] 780963- 8016 Dec, Left leg pain M79.605 [facility] [id number] [place] [address] 26984- 2046 Dec, [facility] [place] [id number] [place] [address] 51168- 5292 Dec, Post-traumatic stress disorder, unspecified F43.10 ; Major depressive disorder, recurrent, moderate F33.1 and Problems related to release from usp Z65.2 [facility] [place] [id number] [place] [address] 92903- 9090 Nov, Chronic pain G89.29 and Anxiety F41.9 [facility] [place] [id number] [place] [address] 89684- 5524 24 Nov, 2016 Chronic pain G89.29 and Anxiety F41.9 [facility] [id number] [place] [address] 49567- 4655 16 Nov, 2016 Post-traumatic stress disorder, unspecified F43.10 ; Major depressive disorder, recurrent, moderate F33.1 and Problems related to release from usp Z65.2 [place] [id number] [place] [address] 46259- 2668 09 Nov, 2016 Other abnormal findings in specimens from other organs, systems and tissues R89.8 ; Other male erectile dysfunction N52.8 ; Body mass index (BMI) of 40.0-44.9 in adult Z68.41 and Morbid (severe) obesity due to excess calories E66.[address] 70866- 0520 02 Nov, 2016 Post-traumatic stress disorder, unspecified F43.10 ; Major depressive disorder, recurrent, moderate F33.1 and Problems related to release from usp Z65.2 [facility] [address] [id number] Oct, Dental examination Z01.20 [place] [id number] [place] [address] 42769- 6050 Oct, [address] 32656- 9336 Oct, Encounter for immunization Z23 [place] [id number] [place] [address] 16632- 1028 Oct, Chronic pain G89.29 ; Anxiety F41.9 ; Arrhythmia as indication for cardiac pacemaker replacement I49.9 and Glaucoma H40.9 [place] [id number] [place] [address] 13261- 9436 Oct, Anxiety F41.9 ; Post-traumatic stress disorder, chronic F43.12 and Problems related to release from usp Z65.2 [place] [address] [place] [address] 40107- 3850 07 Oct, 2016 Post-traumatic stress disorder, unspecified F43.10 ; Major depressive disorder, recurrent, moderate F33.1 and Problems related to release from usp Z65.2 [place] [address], [place] [address]- 9617 Sep, Chronic pain G89.29 and Anxiety F41.9 [place] [id number] [place] [address] 24568- 8062 Sep, Post-traumatic stress disorder, unspecified F43.10 ; Major depressive disorder, recurrent, moderate F33.1 and Problems related to release from usp Z65.2 [place] [id number] [place] [address] 26377- 5938 Sep, Post-traumatic stress disorder, unspecified F43.10 ; Major depressive disorder, recurrent, moderate F33.1 and Problems related to release from usp Z65.2 [place] [id number] [place] [address] 58886- 1645 Sep, Chronic pain G89.29 [place] [id number] [place] [address] 80784- 2115 Aug, Dental caries, unspecified K02.9 [place] [id number] [place] [address] 36841- 2849 Aug, Sleep apnea, obstructive G47.33 ; Obesity E66.9 ; Chronic pain G89.29 ; HTN (hypertension) I10 ; Major depressive disorder, recurrent, moderate F33.1 ; Anxiety F41.9 ; Chronic tension headaches G44.229 ; Mitral valve prolapse I34.1 ; Arrhythmia as indication for cardiac pacemaker replacement I49.9 ; Dental caries, unspecified K02.9 ; Primary insomnia F51.01 and Hyperlipidemia E78.5 [place] [id number] [place] [address] 74602- 4319 Aug, Post-traumatic stress disorder, unspecified F43.10 ; Major depressive disorder, recurrent, moderate F33.1 and Problems related to release from usp Z65.2 [place] [id number] [place] [address] 63401- 2182 Aug, Dental examination Z01.20 [facility] [id number] [id number] 13 Aug, 2016 Dental examination Z01.20 [facility] [id number] [place] [address] 06613- 4395 06 Aug, 2016 Post-traumatic stress disorder, unspecified F43.10 ; Major depressive disorder, recurrent, moderate F33.1 and Problems related to release from usp Z65.2 [facility] [id number] [place] [address] 56569- 6736 05 Aug, 2016 Chronic pain G89.29 and Primary insomnia F51.01 [place] [id number] [place] [address] 46173- 7234 Jul, [place] [id number] [place] [address] 64405- 3422 Jul, [place] [id number] [place] [address] 61257- 0083 Jul, Nausea R11.0 [place] [id number] [place] [address] 45607- 2219 Jul, Arrhythmia as indication for cardiac pacemaker replacement I49.9 [facility] [id number] [place] [address] 18942- 0892 Jul, Post-traumatic stress disorder, unspecified F43.10 ; Major depressive disorder, recurrent, moderate F33.1 and Problems related to release from usp Z65.2 [facility] [id number] [place] [address] 10965- 1424 09 Jul, 2016 Anxiety F41.9 [place] [id number] [place] [address] 26914- [phone] 08 Jul, 2016 Chronic pain G89.29 [facility] [place] [id number] [place] [address] 59407- 1740 Jul, Sleep apnea, obstructive G47.33 ; Hyperlipidemia E78.5 ; Chronic pain G89.29 ; Blindness and low vision H54.10 ; Major depressive disorder, recurrent, moderate F33.1 ; Anxiety F41.9 ; Mitral valve prolapse I34.1 ; Arrhythmia as indication for cardiac pacemaker replacement I49.9 ; Primary insomnia F51.01 ; Bilateral headaches R51 and Environmental allergies Z91.09 [place] [id number] [place] [address] 45821- 5431 Jul, Post-traumatic stress disorder, unspecified F43.10 ; Major depressive disorder, recurrent, moderate F33.1 and Problems related to release from usp Z65.2 [place] [id number] [place] [address] 52561- 0396 June, Post-traumatic stress disorder, chronic F43.12 ; Anxiety F41.9 ; Problems related to release from usp Z65.2 ; Sleep apnea, obstructive G47.33 and Primary insomnia F51.01 [place] [id number] [place] [address] 34044- 7075 June, [place] [id number] [place] [address] 39243- 0448 June, [place] [address] [id number] [place] [address] 86562- 5247 June, [place] [address] [id number] [place] [address] 10380- 3632 June, Chronic pain G89.29 [place] [id number] [place] [address] 52531- 9050 June, Chronic pain G89.29 [place] [address] [id number] [place] [address] 32409- 0609 June, Lipoma of left lower extremity D17.24 ; Open wound T14.8 and Swelling of left lower extremity M79.89 [place] [address] [id number] [place] [address] 09906- 4774 June, Post-traumatic stress disorder, unspecified F43.10 ; Major depressive disorder, recurrent, moderate F33.1 and Problems related to release from usp Z65.2 [place] [id number] [address] May, Lipoma of left lower extremity D17.24 ; Major depressive disorder, recurrent, moderate F33.1 ; Sleep apnea, obstructive G47.33 ; Hyperlipidemia E78.5 ; Obesity E66.9 ; HTN (hypertension) I10 ; Glaucoma H40.9 ; CAD (coronary artery disease) I25.10 ; Chronic tension headaches G44.229 ; Chronic pain G89.29 ; Anxiety F41.9 ; Nausea R11.0 and Primary insomnia F51.01 [place] [id number] [place] [address] 80749- 1509 May, [place] [id number] [place] [address] 67856- 5832 May, Chronic pain G89.29 [place] [id number] [place] [address] 02846- 3697 May, [place] [id number] [place] [address] 46938- 0093 Apr, Post-traumatic stress disorder, unspecified F43.10 ; Major depressive disorder, recurrent, moderate F33.1 and Problems related to release from usp Z65.2 [place] [id number] [place] [address] 89429- 3492 Apr, Primary insomnia F51.01 ; Post-traumatic stress disorder, chronic F43.12 and Problems related to release from usp Z65.2 [place] [id number] [place] [address] 30124- 4791 Apr, Post-traumatic stress disorder, unspecified F43.10 ; Major depressive disorder, recurrent, moderate F33.1 and Problems related to release from usp Z65.2 [place] [id number] [place] [address] 22458- 7167 Apr, [place] [id number] [place] [address] 31574- 4284 Apr, Sleep apnea, obstructive G47.33 ; Chronic pain G89.29 ; HTN (hypertension) I10 ; Mitral valve prolapse I34.1 ; Shoulder pain, left M25.512 ; Arrhythmia as indication for cardiac pacemaker replacement I49.9 ; Glaucoma H40.9 ; Bilateral headaches R51 ; Environmental allergies Z91.09 ; Primary insomnia F51.01 and Nausea R11.0 [place] [id number] [place] [address] 88627- 0707 15 Apr, 2016 [place] [address] 80186- 8870 15 Apr, 2016 [place] [id number] [place] [address] 39164- 0428 Apr, Post-traumatic stress disorder, unspecified F43.10 ; Major depressive disorder, recurrent, moderate F33.1 and Problems related to release from usp Z65.2 [place] [id number] [place] [address] 35112- 6624 07 Apr, 2016 HTN (hypertension) I10 [place] [id number] [place] [address] 75731- 7346 07 Apr, 2016 HTN (hypertension) I10 [place] [id number] [place] [address] 80488- 3834 14 Mar, 2016 Chronic pain G89.29 ; Primary insomnia F51.01 and Problems related to release from usp Z65.2 [place] [id number] [place] [address] 21848- 7846 07 Mar, 2016 Post-traumatic stress disorder, unspecified F43.10 ; Major depressive disorder, recurrent, moderate F33.1 and Problems related to release from usp Z65.2 [place] [id number] [place] [address] 02462- 8132 Feb, Post-traumatic stress disorder, unspecified F43.10 ; Major depressive disorder, recurrent, moderate F33.1 and Problems related to release from usp Z65.2 [place] [id number] [place] [address] 69028- 9291 Feb, Chronic tension headaches G44.229 [facility] [id number] [place] [address] 28319- 9180 17 Feb, 2016 Sleep apnea, obstructive G47.33 ; Obesity E66.9 ; Hyperlipidemia E78.5 ; Glaucoma H40.9 ; Chronic pain G89.29 ; HTN (hypertension ) I10 ; Blindness and low vision H54.10 ; 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 ; Chronic tension headaches G44.229 ; Cough R05 ; CAD (coronary artery disease) I25.10 ; Problems related to release from usp Z65.2 ; Arrhythmia as indication for cardiac pacemaker replacement I49.9 and Primary insomnia F51.01 [place] [address] 50266- 1047 17 Feb, 2016 Post-traumatic stress disorder, unspecified F43.10 and Chronic pain G89.[address] 88201- 3231 Feb, [facility] [address] [id number] Feb, Dental caries K02.[address] 55861- 0978 06 Feb, 2016 [place] [id number] [place] [address] 20240- 1724 Feb, Post-traumatic stress disorder, unspecified F43.10 ; Major depressive disorder, recurrent, moderate F33.1 and Problems related to release from usp Z65.2 [place] [id number] [place] [address] 92278- 9990 Jan, Sleep apnea, obstructive G47.33 and Chronic pain G89.[address] 97643- 0693 Jan, [place] [address] 75815- 7980 14 Jan, 2016 Dental examination Z01.20 [place] [address] [address]- 5753 Jan, [place] [id number] [place] [address] 36297- 9919 Jan, [place] [id number] [place] [address] 72250- 6950 Dec, Post-traumatic stress disorder, unspecified F43.10 ; Major depressive disorder, recurrent, moderate F33.1 and Problems related to release from usp Z65.2 [place] [id number] [place] [address] 63742- 9501 Dec, Encounter for immunization Z23 ; Problems related to release from usp Z65.2 ; Sleep apnea, obstructive G47.33 and Post-traumatic stress disorder, chronic F43.12 [place] [id number] [place] [address] 84576- 7437 Dec, Sleep apnea, obstructive G47.33 ; Hyperlipidemia E78.5 ; Chronic pain G89.29 ; Glaucoma H40.9 ; HTN (hypertension) I10 ; Post-traumatic stress disorder, unspecified F43.10 ; Anxiety F41.9 ; Chronic tension headaches G44.229 ; Mitral valve prolapse I34.1 and CAD (coronary artery disease) I25.10 [place] [id number] [place] [address] 10332- 4193 Dec, Post-traumatic stress disorder, unspecified F43.10 ; Major depressive disorder, recurrent, moderate F33.1 and Problems related to release from usp Z65.2 [place] [address] [address]- 4982 Nov, Chronic pain G89.29 [place] [id number] [place] [address] 64668- 5240 Nov, Post-traumatic stress disorder, unspecified F43.10 ; Major depressive disorder, recurrent, moderate F33.1 and Problems related to release from usp Z65.2 [place] [id number] [place] [address] 82013- 8374 Oct, [facility] [place] [address] [address]- 1783 Oct, [facility] [id number] [place] [address] 41867- 5055 Oct, Post-traumatic stress disorder, unspecified F43.10 ; Major depressive disorder, recurrent, moderate F33.1 and Problems related to release from usp Z65.2 [facility] [id number] [place] [address] 76739- 3991 08 Oct, 2015 [facility] [id number] [place] [address] 00782- 7996 07 Oct, 2015 Environmental allergies Z91.09 ; Cough R05 and 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 [facility] [id number] [place] [address] 57180- 6701 Sep, [facility] [id number] [place] [address] 63472- 8727 Sep, Post-traumatic stress disorder, unspecified F43.10 ; Major depressive disorder, recurrent, moderate F33.1 and Problems related to release from usp Z65.2 [facility] [id number] [place] [address] 83250- 4505 Sep, Chronic pain G89.29 [facility] [address], [place] [address]- 5242 Sep, Pain in left shoulder M25.512 ; Pain in right shoulder M25.511 and Other chronic pain G89.29 [facility] [address], [place] [address]- 0432 Sep, [facility] [id number] [place] [address] 08007- 3974 Sep, [facility] [address], [place] [address]- 7951 Sep, [facility] [id number] [place] [address] [id number] Aug, Dental examination Z01.20 [facility] [id number] [place] [address] 01599- 5535 Aug, Post-traumatic stress disorder, unspecified F43.10 ; Open- angle glaucoma of both 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 and Problems related to release from usp Z65.2 [facility] [id number] [place] [address] 09099- 2824 Aug, [facility] [id number] [place] [address] 42090- 9766 Aug, Sleep apnea, obstructive G47.33 ; Obesity E66.9 ; Hyperlipidemia E78.5 ; Bilateral headaches R51 ; HTN (hypertension) I10 ; Post- traumatic stress disorder, unspecified F43.10 ; Anxiety F41.9 ; Neuropathy G62.9 ; Glaucoma H40.9 and Chronic pain G89.29 [facility] [id number] [place] [address] [id number] Aug, Encounter for dental examination Z01.20 [facility] [id number] [place] [address] 62762- 7824 Aug, Post-traumatic stress disorder, unspecified F43.10 ; Major depressive disorder, recurrent, moderate F33.1 and Problems related to release from usp Z65.2 [facility] [address], [place] [address]- 7319 Aug, [facility] [id number] [place] [address] 41107- 1302 Jul, [facility] [id number] [place] [address] 27965- 1845 Jul, Post-traumatic stress disorder, unspecified F43.10 and Major depressive disorder, recurrent, moderate F33.1 [facility] [id number] [place] [address] 73660- 7343 Jul, [facility] [id number] [place] [address] 81243- 6371 Jul, [facility] [id number] [place] [address] 47360- 6426 Jul, Chronic pain G89.29 [facility] [id number] [place] [address] 069792- 3602 June, Post-traumatic stress disorder, unspecified F43.10 and Major depressive disorder, recurrent, moderate F33.1 [facility] [id number] [place] [address] 21151- 9769 June, [facility] [id number] [place] [address] 29215- 7977 June, Chronic pain G89.29 [facility] [id number] [place] [address] 39377- 2102 June, Post-traumatic stress disorder, unspecified F43.10 and Major depressive disorder, recurrent, moderate F33.1 [facility] [id number] [place] [address] 11351- 0726 May, Post-traumatic stress disorder, unspecified F43.10 and Major depressive disorder, recurrent, moderate F33.1 [facility] [id number] [place] [address] 46923- 3057 May, [facility] [id number] [place] [address] 79555- 0558 May, [facility] [id number] [place] [address] 93871- 2067 May, [facility] [id number] [place] [address] 55106- 8187 Apr, [facility] [id number] [place] [address] 54691- 2105 Apr, Post-traumatic stress disorder, unspecified F43.10 and Sleep apnea, obstructive G47.33 [facility] [id number] [place] [address] 77311- 4277 Apr, [facility] [id number] [place] [address] 67941- 7178 Apr, Shoulder pain, left M25.512 [facility] [id number] [place] [address] 73021- 6938 Apr, Post-traumatic stress disorder, unspecified F43.10 and Major depressive disorder, recurrent, moderate F33.1 [facility] [id number] [place] [address] 89301- 2089 17 Apr, 2015 [facility] [id number] [place] [address] 10275- 3544 Apr, [facility] [id number] [place] [address] 70254- 1458 Apr, [facility] [id number] [place] [address] 29824- 8221 Apr, Left shoulder pain M25.512 [facility] [id number] [place] [address] 01450- 9749 Mar, [facility] [id number] [place] [address] 50892- 5286 Mar, [facility] [id number] [place] [address] 05132- 5796 Mar, [facility] [id number] [place] [address] 70942- 7909 Mar, Sleep apnea, obstructive G47.33 ; Obesity E66.9 ; Chronic pain G89.29 ; Hyperlipidemia E78.5 ; HTN (hypertension) I10 ; Blindness and low vision H54.10 ; Major depressive disorder, recurrent, moderate F33.1 and Anxiety F41.9 [facility] [id number] [place] [address] 58002- 1451 Mar, [facility] [id number] [place] [address] 66291- 8691 Mar, Post-traumatic stress disorder, unspecified F43.10 and Major depressive disorder, recurrent, moderate F33.1 [place] [id number] [place] [address] 06032- 0576 Mar, [place] [id number] [place] [address] 5276 Mar, HTN (hypertension) I10 ; Blindness and low vision H54.10 ; Obesity E66.9 ; Hyperlipidemia E78.5 ; Glaucoma H40.9 ; Chronic pain G89.29 and CAD (coronary artery disease) I25.10 [place] [id number] [place] [address] 16045- 2782 Feb, [place] [address] 91598- 6680 Feb, Post-traumatic stress disorder, unspecified F43.10 ; Obesity E66.9 ; Sleep apnea, obstructive G47.33 and 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 [place] [id number] [place] [address] 31719- 2732 Feb, Post-traumatic stress disorder, unspecified F43.10 and Major depressive disorder, recurrent, moderate F33.1 [place] [id number] [place] [address] 77570- 3883 Feb, [place] [id number] [place] [address] 81932- 4498 Feb, [place] [id number] [place] [address] 484819- 9058 Feb, HTN (hypertension) I10 ; Post-traumatic stress disorder, unspecified F43.10 ; Blindness and low vision H54.10 ; Obesity E66.9 ; Hyperlipidemia E78.5 ; Chronic pain G89.29 ; Glaucoma H40.9 ; Mitral valve prolapse I34.1 and Bilateral headaches R51 [place] [id number] [place] [address] 36045- 5364 Feb, [place] [address] [place] [address]- 2822 Feb, Post-traumatic stress disorder, unspecified F43.10 and Major depressive disorder, recurrent, moderate F33.1 [place] [address] 40923- 3993 Feb, [facility] [address] 83458- 6779 Feb, [facility] [address] 614079- 3255 Jan, [place] [address] 51050- 4758 Jan, [place] [address] 87040- 9810 Jan, Obesity E66.9 ; HTN (hypertension) I10 ; Blindness and low vision H54.10 ; Major depressive disorder, recurrent, moderate F33.1 ; Glaucoma H40.9 ; Hyperlipidemia E78.5 ; Sleep apnea, obstructive G47.33 ; Chronic pain G89.29 ; Anxiety F41.9 ; Chronic tension headaches G44.229 and Cough R05 [place] [address] 30135- 8831 Jan, [place] [address] 86581- 3184 Jan, [place] [address] 98159- 2343 Jan, Post-traumatic stress disorder, unspecified F43.10 ; Obesity E66.9 ; Sleep apnea, obstructive G47.33 and 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 [place] [address] 29623- 0189 Jan, [place] [address] 52168- 8597 Jan, Post-traumatic stress disorder, unspecified F43.10 and Major depressive disorder, recurrent, moderate F33.1 [facility] [id number] [place] [address] 18744- 7318 Dec, [facility] [address] 59660- 3963 Dec, Sleep apnea, obstructive G47.33 ; Obesity E66.9 ; Hyperlipidemia E78.5 ; Glaucoma H40.9 ; Chronic pain G89.29 ; HTN (hypertension ) I10 ; Blindness and low vision H54.10 ; Anxiety F41.9 and CAD (coronary artery disease) I25.10 [facility] [address] 07366- 8977 Nov, [facility] [address] 62383- 6468 Nov, [facility] [address] 02116- 2600 Nov, [facility] [address] 98661- 3852 Nov, [facility] [address] 81125- 3397 Nov, [facility] [address] 26720- 2981 Nov, Encounter for immunization Z23 ; Sleep apnea, obstructive G47.33 ; Obesity E66.9 ; Hyperlipidemia E78.5 ; Glaucoma H40.9 ; Chronic pain G89.29 ; Anxiety F41.9 ; Chronic tension headaches G44.229 and HTN (hypertension ) I10 [facility] [id number] [place] [address] 90467- 2272 Nov, [facility] [address] [place] [address] 21567- 1278 Nov, [facility] [address] 96197- 6064 06 Nov, 2014 Dizziness R42 [facility] [address] [place] [address]- 3966 Nov, [facility] [id number] [place] [address] 12042- 8374 Oct, [facility] [id number] [place] [address] 55529- 7510 Oct, [facility] [address] 95611- 4488 Oct, [facility] [address] 82536- 5033 Oct, [facility] [address] 94067- 5265 Oct, Dizziness 780.4 ; Essential hypertension 401.9 ; Obesity 278.00 ; Hyperlipidemia 272.4 ; Chronic pain 338.29 ; Glaucoma 365.9 and Anxiety 300.00 [facility] [address] 01187- 6591 Oct, Essential hypertension 401.9 ; Hyperlipidemia 272.4 ; Glaucoma 365.9 ; Obesity 278.00 ; Chronic pain 338.29 and Allergy to insects V15.06 [facility] [id number] [place] [address] 91777- 7229 Sep, [facility] [id number] [place] [address] 27818- 9019 Sep, [facility] [id number] [place] [address] 67626- 8983 Sep, [facility] [id number] [place] [address] 31903- 0202 Sep, [facility] [address] 49599- 5132 Aug, Essential hypertension 401.9 ; Obesity 278.00 ; Hyperlipidemia 272.4 ; Glaucoma 365.9 ; Lipoma 214.9 ; Mitral valve prolapse 424.0 ; Angina at rest 413.9 ; Lymphedema 457.1 and Chronic pain 338.29 IMMUNIZATIONS No Known Immunizations SOCIAL HISTORY Never Assessed REASON FOR VISIT Controlled Med Refill PLAN OF CARE VITAL SIGNS MEDICATIONS Medication Instructions Dosage Frequency Start Date End Date Duration Status Zofran ODT 4 MG Orally every 8 hrs prn 1 tablet on the tongue and allow to dissolve 10 Active Hydrocodone-Acetaminophen 7.5-325 MG Orally 4 times a day 1 tablet 6h Oct, Active RESULTS No Results PROCEDURES No Known [...]
--- OUTSIDE RECORDS SUMMARY | 2018-02-04 14:17 | XMS REPORT ---
Author Author ALENA ÁLVAREZ [facility] Address [address] [place] [address] Care Team Providers Care Operations Management Professionals Name Role Phone ALENA ÁLVAREZ Unavailable PROBLEMS Type Condition ICD9-CM Code OAY30-FL Code Onset Dates Condition Status SNOMED Code Problem Hyperlipidemia E78.5 Active 37494249 Problem Sleep apnea, obstructive G47.33 Active 00217910 Problem Primary insomnia F51.01 Active 8945334 Problem Chronic pain G89.29 Active 04400653 Problem Morbid (severe) obesity due to excess calories E66.01 Active 597626168 Problem Myocarditis, unspecified chronicity, 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 Active 76770001 Problem Other male erectile dysfunction N52.8 Active 715233072 Problem 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 Active 174660062 Problem Body mass index (BMI) of 40.0-44.9 in adult Z68.41 Active 798108899 Problem Supraventricular tachycardia I47.1 Active 3369026 Problem Insomnia disorder with non-sleep disorder mental comorbidity G47.00 Active 80978290 Problem Chronic tension headaches G44.229 Active 255461703 Problem HTN (hypertension) I10 Active 14594492 Problem Blindness and low vision H54.10 Active 223728665 Problem Chronic pain syndrome G89.4 Active 640275675 Problem Migraine without aura and without status migrainosus, not intractable G43.009 Active 217553427 Problem Sarcoidosis D86.9 Active 48610901 Problem Problems related to release from fci Z65.2 Active 808945881890962 Problem 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 Active 63598895 Problem Mitral valve prolapse I34.1 Active 630168416 Problem Anxiety F41.9 Active 67578561 Problem Major depressive disorder, recurrent, moderate F33.1 Active 30148497 Problem Environmental allergies Z91.09 Active 719997144 Problem Arrhythmia as indication for cardiac pacemaker replacement I49.9 Active 36712197 Problem CAD (coronary artery disease) I25.10 Active 48215872 Problem Post-traumatic stress disorder, chronic F43.12 Active 871736980 ALLERGIES Substance Reaction Event Type Date Status Xalatan upper lid irritation Drug Allergy Jul, Active Penicillin G Potassium rash Drug Allergy Jul, Active Aspirin nausea and vomiting Drug Allergy Jul, Active bandaides blisters Non Drug Allergy Jul, Active Wasp venom anaphylaxis Non Drug Allergy Jul, Active ENCOUNTERS Encounter Location Date Diagnosis [facility] [address] [address] Dec, [facility] [address] [address] Nov, [facility] [address] [address] Oct, [facility] [address] 29886- [address] Oct, Post-traumatic stress disorder, chronic F43.12 ; Insomnia disorder with non-sleep disorder mental comorbidity G47.00 and BMI 40.0-44.9, adult Z68.41 [facility] [id number] [place] [address] 75259- 7194 19 Oct, 2017 [facility] [id number] [place] [address] 26527 -4078 18 Oct, 2017 Insect bite (nonvenomous), left lower leg, initial encounter S80.862A ; Bitten or stung by nonvenomous insect and other nonvenomous arthropods, initial encounter W57.XXXA and BMI 40.0-44.9, adult Z68.41 [facility] [id number] [place] [address] 46711- 8039 06 Oct, 2017 Left leg pain M79.605 [place] [address] 10[address]- 4062 04 Oct, 2017 Post-traumatic stress disorder, unspecified F43.10 ; Major depressive disorder, recurrent, moderate F33.1 and Problems related to release from fci Z65.2 [facility] [id number] [place] [address] 14010- 7822 Sep, Arrhythmia as indication for cardiac pacemaker replacement I49.9 [facility] [address] 97469- 9779 Sep, [facility] [address] 29718- 1418 Sep, HTN (hypertension) I10 [facility] [address] 40893- 0575 17 Sep, 2017 [facility] [address] 99793- 7028 16 Sep, 2017 Body mass index (BMI) of 40.0-44.9 in adult Z68.41 ; Chronic pain G89.29 and Supraventricular tachycardia I47.1 [facility] [address] 11386- 2407 15 Sep, 2017 [facility] [id number] [place] [address] 21949- 4679 Sep, Sarcoidosis D86.9 [facility] [address] 64330- 2435 Sep, Sarcoidosis D86.9 [facility] [id number] [place] [address] 71848- 5257 Sep, [facility] [id number] [place] [address] 74109- 4130 Sep, [facility] [id number] [place] [address] 45038- 4794 Sep, [facility] [address] 55807- 4830 Sep, [facility] [id number] [place] [address] 87417- 4492 Sep, Left leg pain M79.605 [facility] [address] [place] [address]- 0875 Sep, HTN (hypertension) I10 [facility] [id number] [address] Sep, [facility] [id number] [address] 2[address] Sep, Post-traumatic stress disorder, unspecified F43.10 ; Major depressive disorder, recurrent, moderate F33.1 and Problems related to release from fci Z65.2 [facility] [address] [address] 76[address] Sep, [facility] [id number] [place] [address] 04349- 2106 Aug, [facility] [address] [place] [address] 61574- 7246 Aug, Sarcoidosis D86.9 [facility] [id number] [place] [address] 35282- 6749 Aug, Sarcoidosis D86.9 [facility] [address] [address]- 99[address] Aug, HTN (hypertension) I10 [facility] [address] [address]- 2[address] Aug, Post-traumatic stress disorder, unspecified F43.10 ; Major depressive disorder, recurrent, moderate F33.1 and Problems related to release from fci Z65.2 [facility] [address] [address] 97[address] Aug, [facility] [address] [address]- 6[address] Aug, Left leg pain M79.605 [facility] [address] [address]- 8183 Jul, Post-traumatic stress disorder, chronic F43.12 ; Anxiety F41.9 ; Problems related to release from fci Z65.2 and BMI 40.0-44.9, adult Z68.41 [facility] [id number] [place] [address] 95689- 0849 20 Jul, 2017 HTN (hypertension) I10 ; Body mass index (BMI) of 40.0-44.9 in adult Z68.41 ; Acute swimmer''s ear of both sides H60.333 and Chronic pain G89.29 [facility] [address] 33539- 9357 19 Jul, 2017 Glaucoma H40.9 [facility] [address] 68513- 4227 14 Jul, 2017 [facility] [address] 88546- 6884 13 Jul, 2017 Sarcoidosis D86.9 [facility] [address] 03970- 6212 Jul, Left leg pain M79.605 [facility] [id number] [place] [address] 90525- 5137 12 Jul, 2017 Sarcoidosis D86.9 [facility] [id number] [place] [address] 43830- 8455 Jul, Post-traumatic stress disorder, unspecified F43.10 ; Major depressive disorder, recurrent, moderate F33.1 and Problems related to release from fci Z65.2 [facility] [id number] [place] [address] 08737- 3945 June, [facility] [id number] [place] [address] 70155 -4098 June, Sore throat J02.9 and BMI 40.0-44.9, adult Z68.41 [facility] [id number] [place] [address] 50572- 1100 June, [facility] [id number] [place] [address] 48733- 8306 June, [facility] [id number] [address]- 57[address] June, [facility] [id number] [place] [address] 93815- 2956 June, Left leg pain M79.605 [facility] [id number] [place] [address] 47868- 1096 June, Sarcoidosis D86.9 [facility] [id number] [place] [address] 15958- 8984 June, [facility] [id number] [place] [address] 93516- 9923 June, [facility] [id number] [place] [address] 63185- 6087 June, Left leg pain M79.605 [facility] [id number] [place] [address] 69553- 4579 May, [facility] [id number] [place] [address] 77343- 0665 May, [facility] [id number] [place] [address] 06953- 1517 May, [facility] [id number] [place] [address] 71222- 0534 May, Left leg pain M79.605 [facility] [id number] [place] [address] 59164- 6514 May, Post-traumatic stress disorder, unspecified F43.10 ; Major depressive disorder, recurrent, moderate F33.1 and Problems related to release from fci Z65.2 [facility] [id number] [place] [address] 14370- 9621 May, Chronic pain G89.29 ; Anxiety F41.9 ; Chest pain, unspecified type R07.9 and BMI 40.0-44.9, adult Z68.41 [facility] [id number] [place] [address] 75657- 6417 30 Apr, 2017 [facility] [id number] [place] [address] 77471- 1279 Apr, Left leg pain M79.605 [facility] [id number] [place] [address] 44205- 0379 Apr, Post-traumatic stress disorder, unspecified F43.10 ; Problems related to release from fci Z65.2 ; Anxiety F41.9 and BMI 40.0-44.9 , adult Z68.41 [facility] [id number] [place] [address] 87310- 8433 Apr, [facility] [address] 08329- 0557 Apr, Left leg pain M79.605 [facility] [address] 23825- 4397 13 Apr, 2017 Post-traumatic stress disorder, unspecified F43.10 ; Major depressive disorder, recurrent, moderate F33.1 and Problems related to release from fci Z65.2 [facility] [id number] [place] [address] 38966- 7667 Apr, [facility] [id number] [place] [address] 36955- 8998 Apr, Chronic pain G89.29 ; 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 ; Morbid (severe) obesity due to excess calories E66.01 ; Anxiety F41.9 and BMI 40.0-44.9, adult Z68.41 [facility] [address] [place] [address] 56517 -8063 Apr, Sore throat J02.9 and BMI 40.0-44.9, adult Z68.41 [facility] [id number] [place] [address] 85184- 6203 02 Apr, 2017 Left leg pain M79.605 [facility] [address] [id number] Mar, Dental examination Z01.20 [facility] [address] 57975- 1691 Mar, [facility] [address] 35366 -1336 Mar, Cough R05 ; Viral gastroenteritis A08.4 and BMI 40.0-44.9, adult Z68.41 [facility] [facility] [address] 91957- 9160 Mar, Left leg pain M79.605 [place] [address] 30233- 7293 Mar, Post-traumatic stress disorder, unspecified F43.10 ; Major depressive disorder, recurrent, moderate F33.1 and Problems related to release from fci Z65.2 [place] [address] 82374- 7929 Feb, Left leg pain M79.605 [facility] [address] 12957- 3112 Feb, [place] [address] 51210- 1060 Feb, BMI 40.0-44.9, adult Z68.41 ; Chronic pain syndrome G89.4 ; Migraine without aura and without status migrainosus, not intractable G43.009 ; Mitral valve prolapse I34.1 and 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 [facility] [id number] [place] [address] 73767- 6753 Feb, Post-traumatic stress disorder, chronic F43.12 ; Anxiety F41.9 ; Problems related to release from fci Z65.2 and BMI 40.0-44.9, adult Z68.41 [facility] [id number] [place] [address] 27088- 8681 Feb, Post-traumatic stress disorder, unspecified F43.10 ; Major depressive disorder, recurrent, moderate F33.1 and Problems related to release from fci Z65.2 [facility] [address] [place] [address] 48172- 8094 Feb, Left leg pain M79.605 [facility] [id number] [place] [address] 27 Jan, 2017 Post-traumatic stress disorder, unspecified F43.10 ; Major depressive disorder, recurrent, moderate F33.1 and Problems related to release from fci Z65.2 [facility] [id number] [place] [address] 61858- 8711 Jan, [facility] [id number] [place] [address] 583392- 0646 Jan, [facility] [id number] [place] [address] 85139- 3106 Jan, Anxiety F41.9 [facility] [id number] [place] [address] 96813- 8637 Jan, Left leg pain M79.605 [facility] [id number] [place] [address] 45512- 4426 Dec, Left leg pain M79.605 [facility] [id number] [place] [address] 00958- 9446 Dec, [facility] [id number] [place] [address] 40543- 0000 15 Dec, 2016 Post-traumatic stress disorder, unspecified F43.10 ; Major depressive disorder, recurrent, moderate F33.1 and Problems related to release from fci Z65.2 [facility] [address] [place] [address] 03073- 6762 31 Nov, 2016 Chronic pain G89.29 and Anxiety F41.9 [facility] [id number] [place] [address] 67230- 8225 24 Nov, 2016 Chronic pain G89.29 and Anxiety F41.9 [facility] [address] [place] [address]- 0221 16 Nov, 2016 Post-traumatic stress disorder, unspecified F43.10 ; Major depressive disorder, recurrent, moderate F33.1 and Problems related to release from fci Z65.2 [facility] [id number] [place] [address] 16843- 6862 09 Nov, 2016 Other abnormal findings in specimens from other organs, systems and tissues R89.8 ; Other male erectile dysfunction N52.8 ; Body mass index (BMI) of 40.0-44.9 in adult Z68.41 and Morbid (severe) obesity due to excess calories E66.01 [facility] [address] 66411- 7129 02 Nov, 2016 Post-traumatic stress disorder, unspecified F43.10 ; Major depressive disorder, recurrent, moderate F33.1 and Problems related to release from fci Z65.2 [facility] [address] [id number] Oct, Dental examination Z01.20 [place] [address] 94235- 5423 Oct, [facility] [address] 84581- 7182 Oct, Encounter for immunization Z23 [facility] [facility] [address] 92012- 7475 Oct, Chronic pain G89.29 ; Anxiety F41.9 ; Arrhythmia as indication for cardiac pacemaker replacement I49.9 and Glaucoma H40.9 [facility] [id number] [place] [address] 50131- 7928 Oct, Anxiety F41.9 ; Post-traumatic stress disorder, chronic F43.12 and Problems related to release from fci Z65.2 [facility] [id number] [place] [address] 86698- 1078 07 Oct, 2016 Post-traumatic stress disorder, unspecified F43.10 ; Major depressive disorder, recurrent, moderate F33.1 and Problems related to release from fci Z65.2 [facility] [address] [address]- 8667 Sep, Chronic pain G89.29 and Anxiety F41.9 [facility] [id number] [address]- 5193 Sep, Post-traumatic stress disorder, unspecified F43.10 ; Major depressive disorder, recurrent, moderate F33.1 and Problems related to release from fci Z65.2 [facility] [id number] [place] [address] 51966- 1739 Sep, Post-traumatic stress disorder, unspecified F43.10 ; Major depressive disorder, recurrent, moderate F33.1 and Problems related to release from fci Z65.2 [facility] [id number] [place] [address] 02558- 5981 Sep, Chronic pain G89.29 [facility] [id number] [place] [address] 40856- 8947 Aug, Dental caries, unspecified K02.9 [facility] [id number] [place] [address] 75027- 3687 Aug, Sleep apnea, obstructive G47.33 ; Obesity E66.9 ; Chronic pain G89.29 ; HTN (hypertension) I10 ; Major depressive disorder, recurrent, moderate F33.1 ; Anxiety F41.9 ; Chronic tension headaches G44.229 ; Mitral valve prolapse I34.1 ; Arrhythmia as indication for cardiac pacemaker replacement I49.9 ; Dental caries, unspecified K02.9 ; Primary insomnia F51.01 and Hyperlipidemia E78.5 [facility] [address] [address]- 7944 Aug, Post-traumatic stress disorder, unspecified F43.10 ; Major depressive disorder, recurrent, moderate F33.1 and Problems related to release from fci Z65.2 [facility] [place] [address] [address]- 7551 Aug, Dental examination Z01.20 [facility] [id number] [address] 13 Aug, 2016 Dental examination Z01.20 [facility] [id number] [place] [address] 49535- 6122 06 Aug, 2016 Post-traumatic stress disorder, unspecified F43.10 ; Major depressive disorder, recurrent, moderate F33.1 and Problems related to release from fci Z65.2 [facility] [id number] [place] [address] 17071- 7442 05 Aug, 2016 Chronic pain G89.29 and Primary insomnia F51.01 [place] [id number] [place] [address] 01302- 4944 Jul, [facility] [id number] [place] [address] 49541- 6587 Jul, [place] [id number] [place] [address] 17372- 8973 Jul, Nausea R11.0 [facility] [id number] [place] [address] 51527- 5602 Jul, Arrhythmia as indication for cardiac pacemaker replacement I49.9 [facility] [id number] [place] [address] 94526- 0492 Jul, Post-traumatic stress disorder, unspecified F43.10 ; Major depressive disorder, recurrent, moderate F33.1 and Problems related to release from fci Z65.2 [facility] [address] [place] [address] 71474- 8541 09 Jul, 2016 Anxiety F41.9 [place] [id number] [place] [address] 87607- 5526 08 Jul, 2016 Chronic pain G89.29 [place] [id number] [place] [address] 29376- 6400 Jul, Sleep apnea, obstructive G47.33 ; Hyperlipidemia E78.5 ; Chronic pain G89.29 ; Blindness and low vision H54.10 ; Major depressive disorder, recurrent, moderate F33.1 ; Anxiety F41.9 ; Mitral valve prolapse I34.1 ; Arrhythmia as indication for cardiac pacemaker replacement I49.9 ; Primary insomnia F51.01 ; Bilateral headaches R51 and Environmental allergies Z91.09 [facility] [id number] [place] [address] 54866- 1951 Jul, Post-traumatic stress disorder, unspecified F43.10 ; Major depressive disorder, recurrent, moderate F33.1 and Problems related to release from fci Z65.2 [facility] [id number] [place] [address] 83269- 6592 June, Post-traumatic stress disorder, chronic F43.12 ; Anxiety F41.9 ; Problems related to release from fci Z65.2 ; Sleep apnea, obstructive G47.33 and Primary insomnia F51.01 [facility] [id number] [place] [address] 98881- 0360 June, [facility] [id number] [place] [address] 28986- 2396 June, [facility] [id number] [place] [address] 86574- 5253 June, [facility] [id number] [place] [address] 97263- 8265 June, Chronic pain G89.29 [facility] [id number] [place] [address] 41619- 3370 June, Chronic pain G89.29 [facility] [id number] [place] [address] 59460- 1478 June, Lipoma of left lower extremity D17.24 ; Open wound T14.8 and Swelling of left lower extremity M79.89 [facility] [id number] [place] [address] 86045- 2959 June, Post-traumatic stress disorder, unspecified F43.10 ; Major depressive disorder, recurrent, moderate F33.1 and Problems related to release from fci Z65.2 [facility] [place] [id number] [place] [address] 32913- 4738 May, Lipoma of left lower extremity D17.24 ; Major depressive disorder, recurrent, moderate F33.1 ; Sleep apnea, obstructive G47.33 ; Hyperlipidemia E78.5 ; Obesity E66.9 ; HTN (hypertension) I10 ; Glaucoma H40.9 ; CAD (coronary artery disease) I25.10 ; Chronic tension headaches G44.229 ; Chronic pain G89.29 ; Anxiety F41.9 ; Nausea R11.0 and Primary insomnia F51.01 [facility] [id number] [place] [address] 29691- 2190 May, [address] 73859- 5178 May, Chronic pain G89.[address] 49835- 9580 May, [place] [id number] [place] [address] 74624- 4032 Apr, Post-traumatic stress disorder, unspecified F43.10 ; Major depressive disorder, recurrent, moderate F33.1 and Problems related to release from fci Z65.2 [place] [id number] [place] [address] 98796- 7101 Apr, Primary insomnia F51.01 ; Post-traumatic stress disorder, chronic F43.12 and Problems related to release from fci Z65.2 [place] [id number] [place] [address] 95012- 7509 Apr, Post-traumatic stress disorder, unspecified F43.10 ; Major depressive disorder, recurrent, moderate F33.1 and Problems related to release from fci Z65.2 [place] [id number] [place] [address] 97880- 9007 Apr, [place] [id number] [place] [address] 51506- 7323 Apr, Sleep apnea, obstructive G47.33 ; Chronic pain G89.29 ; HTN (hypertension) I10 ; Mitral valve prolapse I34.1 ; Shoulder pain, left M25.512 ; Arrhythmia as indication for cardiac pacemaker replacement I49.9 ; Glaucoma H40.9 ; Bilateral headaches R51 ; Environmental allergies Z91.09 ; Primary insomnia F51.01 and Nausea R11.0 [facility] [id number] [place] [address] [phone] 15 Apr, 2016 [facility] [id number] [place] [address] [phone] Apr, [facility] [id number] [place] [address] [phone] Apr, Post-traumatic stress disorder, unspecified F43.10 ; Major depressive disorder, recurrent, moderate F33.1 and Problems related to release from fci Z65.2 [place] [id number] [id number] [place] [address] [phone] 07 Apr, 2016 HTN (hypertension) I10 [facility] [id number] [place] [address] [id number]- [phone] 07 Apr, 2016 HTN (hypertension) I10 [place] [id number] [place] [address] 13056- [phone] 14 Mar, 2016 Chronic pain G89.29 ; Primary insomnia F51.01 and Problems related to release from fci Z65.2 [place] [id number] [place] [address] [phone] 07 Mar, 2016 Post-traumatic stress disorder, unspecified F43.10 ; Major depressive disorder, recurrent, moderate F33.1 and Problems related to release from [facility]ci Z65.2 [facility] [id number] [place] [address] 81316- 7011 Feb, Post-traumatic stress disorder, unspecified F43.10 ; Major depressive disorder, recurrent, moderate F33.1 and Problems related to release from fci Z65.2 [place] [address] [place] [address] 54571- 1853 Feb, Chronic tension headaches G44.229 [facility] [address] 50383- 6951 17 Feb, 2016 Sleep apnea, obstructive G47.33 [...] pacemaker replacement I49.9 and Primary insomnia F51.01 [place] [facility] [address] 34217- 6005 17 Feb, 2016 Post-traumatic stress disorder, unspecified F43.10 and Chronic pain G89.29 [facility] [address] 02225- 7809 13 Feb, 2016 [facility] [address] [id number] 11 Feb, 2016 Dental caries K02.9 [place] [address] 59863- 4525 06 Feb, 2016 [place] [facility] [address] 52162- 8607 03 Feb, 2016 Post-traumatic stress disorder, unspecified F43.10 ; Major depressive disorder, recurrent, moderate F33.1 and Problems related to release from fci Z65.2 [place] [address] 22417- 4596 Jan, Sleep apnea, obstructive G47.33 and Chronic pain G89.29 [facility] [address] 93279- 7615 Jan, [facility] [address] 44775- 0859 14 Jan, 2016 Dental examination Z01.20 [facility] [address] [place] [address] Jan, [facility] [id number] [place] [address] 70947- 9443 Jan, [facility] [id number] [place] [address] 95123- 8051 Dec, Post-traumatic stress disorder, unspecified F43.10 ; Major depressive disorder, recurrent, moderate F33.1 and Problems related to release from fci Z65.2 [facility] [id number] [place] [address] 80200- 5800 Dec, Encounter for immunization Z23 ; Problems related to release from fci Z65.2 ; Sleep apnea, obstructive G47.33 and Post-traumatic stress disorder, chronic F43.12 [facility] [id number] [place] [address] 26182- 8355 Dec, Sleep apnea, obstructive G47.33 ; Hyperlipidemia E78.5 ; Chronic pain G89.29 ; Glaucoma H40.9 ; HTN (hypertension) I10 ; Post-traumatic stress disorder, unspecified F43.10 ; Anxiety F41.9 ; Chronic tension headaches G44.229 ; Mitral valve prolapse I34.1 and CAD (coronary artery disease) I25.10 [facility] [address] [place] [address] 82806- 2381 Dec, Post-traumatic stress disorder, unspecified F43.10 ; Major depressive disorder, recurrent, moderate F33.1 and Problems related to release from fci Z65.2 [facility] [address] [place] [address] 55070- 2506 Nov, Chronic pain G89.29 [facility] [id number] [place] [address] 71487- 4412 Nov, Post-traumatic stress disorder, unspecified F43.10 ; Major depressive disorder, recurrent, moderate F33.1 and Problems related to release from fci Z65.2 [facility] [id number] [place] [address] 51080- 8578 Oct, [facility] [id number] [address] 49[address] Oct, [facility] [id number] [place] [address] 51723- 5305 Oct, Post-traumatic stress disorder, unspecified F43.10 ; Major depressive disorder, recurrent, moderate F33.1 and Problems related to release from fci Z65.2 [facility] [id number] [place] [address] 39866- 5650 08 Oct, 2015 [facility] [id number] [place] [address] 58189- 5164 07 Oct, 2015 Environmental allergies Z91.09 ; Cough R05 and 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 [facility] [id number] [place] [address] 28767- 5065 Sep, [facility] [address] 30458- 3531 Sep, Post-traumatic stress disorder, unspecified F43.10 ; Major depressive disorder, recurrent, moderate F33.1 and Problems related to release from fci Z65.2 [facility] [id number] [place] [address] 77180- 3463 Sep, Chronic pain G89.29 [facility] [address] [place] [address] 82935- 5107 Sep, Pain in left shoulder M25.512 ; Pain in right shoulder M25.511 and Other chronic pain G89.29 [facility] [address] [place] [address] 57522- 1822 Sep, [facility] [id number] [place] [address] 58344- 9963 Sep, [facility] [address] [place] [address] 84159- 0937 Sep, [facility] [id number] [place] [address] [id number] Aug, Dental examination Z01.20 [facility] [address] [address] 9309 Aug, Post-traumatic stress disorder, unspecified F43.10 ; Open- angle glaucoma of both 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 and Problems related to release from fci Z65.2 [facility] [address] [address] 7213 Aug, [facility] [id number] [place] [address] 50123- 6013 Aug, Sleep apnea, obstructive G47.33 ; Obesity E66.9 ; Hyperlipidemia E78.5 ; Bilateral headaches R51 ; HTN (hypertension) I10 ; Post- traumatic stress disorder, unspecified F43.10 ; Anxiety F41.9 ; Neuropathy G62.9 ; Glaucoma H40.9 and Chronic pain G89.29 [facility] [address] [place] [address] [id number] Aug, Encounter for dental examination Z01.20 [facility] [id number] [place] [address] 92290- 9754 Aug, Post-traumatic stress disorder, unspecified F43.10 ; Major depressive disorder, recurrent, moderate F33.1 and Problems related to release from fci Z65.2 [facility] [address] [address]- 0070 Aug, [facility] [address] [place] [address] 02589- 3859 Jul, [facility] [id number] [address]- 2832 Jul, Post-traumatic stress disorder, unspecified F43.10 and Major depressive disorder, recurrent, moderate F33.1 [facility] [id number] [address]- 2951 Jul, [facility] [address] [place] [address] 60845- 0388 Jul, [facility] [address] [place] [address] 40446- 1391 Jul, Chronic pain G89.29 [facility] [id number] [place] [address] 84303- 7590 June, Post-traumatic stress disorder, unspecified F43.10 and Major depressive disorder, recurrent, moderate F33.1 [facility] [id number] [place] [address] 29106- 4225 June, [facility] [id number] [place] [address] 51571- 1240 June, Chronic pain G89.29 [facility] [id number] [place] [address] 79982- 3764 June, Post-traumatic stress disorder, unspecified F43.10 and Major depressive disorder, recurrent, moderate F33.1 [facility] [id number] [place] [address] 78232- 9460 May, Post-traumatic stress disorder, unspecified F43.10 and Major depressive disorder, recurrent, moderate F33.1 [facility] [id number] [place] [address] 63167- 5781 May, [facility] [id number] [place] [address] 19468- 0066 May, [facility] [id number] [place] [address] 80704- 1521 May, [facility] [id number] [place] [address] 92640- 4800 Apr, [facility] [id number] [place] [address] 70780- 3469 Apr, Post-traumatic stress disorder, unspecified F43.10 and Sleep apnea, obstructive G47.33 [facility] [id number] [place] [address] 01414- 1241 Apr, [facility] [id number] [address]- 9612 Apr, Shoulder pain, left M25.512 [facility] [id number] [place] [address] 59022- 6449 Apr, Post-traumatic stress disorder, unspecified F43.10 and Major depressive disorder, recurrent, moderate F33.1 [facility] [id number] [place] [address] 35931- 1120 17 Apr, 2015 [facility] [id number] [place] [address] 55735- 0151 Apr, [facility] [id number] [place] [address] 98395- 6386 08 Apr, 2015 [facility] [id number] [place] [address] 12358- 4681 Apr, Left shoulder pain M25.512 [facility] [id number] [place] [address] 69696- 8386 Mar, [facility] [id number] [place] [address] 02145- 1732 Mar, [facility] [id number] [place] [address] 65257- 9150 Mar, [facility] [address] [place] [address] 32214- 5659 12 Mar, 2015 Sleep apnea, obstructive G47.33 ; Obesity E66.9 ; Chronic pain G89.29 ; Hyperlipidemia E78.5 ; HTN (hypertension) I10 ; Blindness and low vision H54.10 ; Major depressive disorder, recurrent, moderate F33.1 and Anxiety F41.9 [facility] [address] [place] [address] 49499- 6647 11 Mar, 2015 [facility] [address] [place] [address] 24488- 0001 Mar, Post-traumatic stress disorder, unspecified F43.10 and Major depressive disorder, recurrent, moderate F33.1 [facility] [place] [id number] [place] [address] 10116- 5501 Mar, [place] [address]1375- 5758 Mar, HTN (hypertension) I10 ; Blindness and low vision H54.10 ; Obesity E66.9 ; Hyperlipidemia E78.5 ; Glaucoma H40.9 ; Chronic pain G89.29 and CAD (coronary artery disease) I25.10 [place] [id number] [place] [address] 24023- 3141 Feb, [address] 06972- 1297 Feb, Post-traumatic stress disorder, unspecified F43.10 ; Obesity E66.9 ; Sleep apnea, obstructive G47.33 and 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 [address] 98300- 9279 Feb, Post-traumatic stress disorder, unspecified F43.10 and Major depressive disorder, recurrent, moderate F33.[address] 77648- 8014 Feb, [place] [id number] [place] [address] 72378- 9550 Feb, [address] 26507- 4284 Feb, HTN (hypertension) I10 ; Post-traumatic stress disorder, unspecified F43.10 ; Blindness and low vision H54.10 ; Obesity E66.9 ; Hyperlipidemia E78.5 ; Chronic pain G89.29 ; Glaucoma H40.9 ; Mitral valve prolapse I34.1 and Bilateral headaches R51 [address] 72028- 9864 Feb, [address] 60568- 0226 Feb, Post-traumatic stress disorder, unspecified F43.10 and Major depressive disorder, recurrent, moderate F33.1 [facility] [id number] [place] [address] 07590- 0632 Feb, [facility] [id number] [place] [address] 70803- 1480 Feb, [facility] [id number] [place] [address] 75262- 2789 Jan, [facility] [id number] [place] [address] 79066- 4761 Jan, [facility] [id number] [place] [address] 93760- 2855 Jan, Obesity E66.9 ; HTN (hypertension) I10 ; Blindness and low vision H54.10 ; Major depressive disorder, recurrent, moderate F33.1 ; Glaucoma H40.9 ; Hyperlipidemia E78.5 ; Sleep apnea, obstructive G47.33 ; Chronic pain G89.29 ; Anxiety F41.9 ; Chronic tension headaches G44.229 and Cough R05 [facility] [id number] [place] [address] 46226- 0982 Jan, [facility] [id number] [place] [address] 79208- 3491 Jan, [facility] [id number] [place] [address] 28005- 2286 Jan, Post-traumatic stress disorder, unspecified F43.10 ; Obesity E66.9 ; Sleep apnea, obstructive G47.33 and 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 [facility] [id number] [place] [address] 70587- 0291 Jan, [facility] [id number] [place] [address] 11026- 3228 Jan, Post-traumatic stress disorder, unspecified F43.10 and Major depressive disorder, recurrent, moderate F33.1 [facility] [id number] [place] [address] 74386- 7229 Dec, [facility] [address] 10537- 3957 Dec, Sleep apnea, obstructive G47.33 ; Obesity E66.9 ; Hyperlipidemia E78.5 ; Glaucoma H40.9 ; Chronic pain G89.29 ; HTN (hypertension ) I10 ; Blindness and low vision H54.10 ; Anxiety F41.9 and CAD (coronary artery disease) I25.10 [facility] [id number] [place] [address] 52729- 1141 Nov, [facility] [address] 75107- 8718 Nov, [facility] [address] 74384- 5568 Nov, [facility] [address] 06533- 5320 Nov, [facility] [id number] [place] [address] 94954- 4319 Nov, [facility] [address] [place], [place] [id number] [place] [address] 63271- 7190 Nov, Encounter for immunization Z23 ; Sleep apnea, obstructive G47.33 ; Obesity E66.9 ; Hyperlipidemia E78.5 ; Glaucoma H40.9 ; Chronic pain G89.29 ; Anxiety F41.9 ; Chronic tension headaches G44.229 and HTN (hypertension ) I10 [facility] [id number] [place] [address] 11815- 2989 Nov, [facility] [address] 83077- 2823 Nov, [facility] [id number] [place] [address] 08558- 5932 06 Nov, 2014 Dizziness R42 [facility] [address] 64972- 1486 Nov, [facility] [address] [address]- 2289 Oct, [facility] [address] [place] [address] 94946- 5855 Oct, [facility] [id number] [place] [address] 40139- 6818 Oct, [facility] [id number] [place] [address] 45737- 8819 Oct, [facility] [address] [place] [address] 74436- 5916 Oct, Dizziness 780.4 ; Essential hypertension 401.9 ; Obesity 278.00 ; Hyperlipidemia 272.4 ; Chronic pain 338.29 ; Glaucoma 365.9 and Anxiety 300.00 [facility] [id number] [place] [address] 03733- 2540 Oct, Essential hypertension 401.9 ; Hyperlipidemia 272.4 ; Glaucoma 365.9 ; Obesity 278.00 ; Chronic pain 338.29 and Allergy to insects V15.06 [facility] [id number] [place] [address] 34036- 1790 Sep, [facility] [id number] [place] [address] 91417- 1698 Sep, [facility] [id number] [place] [address] 64706- 6184 Sep, [facility] [id number] [place] [address] 27508- 6128 Sep, [facility] [id number] [place] [address] 03750- 8573 Aug, Essential hypertension 401.9 ; Obesity 278.00 ; Hyperlipidemia 272.4 ; Glaucoma 365.9 ; Lipoma 214.9 ; Mitral valve prolapse 424.0 ; Angina at rest 413.9 ; Lymphedema 457.1 and Chronic pain 338.29 IMMUNIZATIONS No Known Immunizations SOCIAL HISTORY Never Assessed REASON FOR VISIT controlled medications, respiratory infection, cough and hard to hear out of left ear-duran chung PLAN OF CARE Activity Details Follow Up 3 Months with Gerhard HAYES Reason: VITAL SIGNS Height 67 in 2017-07-28 Weight 269.7 lbs 2017-07-28 Temperature 98.2 degrees Fahrenheit 2017-07-28 Heart Rate 76 bpm 2017-07-28 Respiratory Rate 20 2017-07-28 BMI 42.24 kg/m2 2017-07-28 Blood pressure systolic 160 mmHg 2017-07-28 Blood pressure diastolic 110 mmHg 2017-07-28 MEDICATIONS Medication Instructions Dosage Frequency Start Date End Date Duration Status Hydrocodone-Acetaminophen 7.5-325 MG Orally 4 times a day 1 tablet 6h Jul, Active Zofran ODT 4 MG Orally every 8 hrs prn 1 tablet on the tongue and allow to dissolve 10 Not-Taking Xanax 1 MG Orally Twice a day for anxiety 1 tablet 30 days Active Oxycodone HCl 5 mg Orally Once a day 1 tablet 24h June, Not- Taking Gabapentin 300 MG TAKE ONE CAPSULE BY MOUTH TWICE DAILY 90 Not- Taking Atorvastatin Calcium 20 MG TAKE ONE TABLET BY MOUTH ONCE DAILY 90 Active Nitrostat 0.4 MG Sublingual every 5 minutes x 3 PRN 1 tablet 30 days Active Methotrexate 2.5 MG 3 tablets once for one week then 4 tablets once for 2 weeks then 6 tablets q7days there after Active Ciprofloxacin HCl 0.3 % Intratympanic 3 times a day 2 drops into ears bilaterally 8h Jul, Aug, 14 days Active Timolol Hemihydrate 0.5 % Ophthalmic 2 times a day 1 drop into both eyes 12h Dec, Active Topamax 100 MG TAKE ONE TABLET BY MOUTH TWICE DAILY 90 Active EPINEPHrine 0.3 MG/0.3ML as directed Jul, Active Cartia XT 300 MG Orally Once a day 1 capsule 24h 90 days Active Metoprolol Succinate ER 200 mg Orally [...]
--- OUTSIDE RECORDS SUMMARY | 2018-02-04 14:18 | XMS REPORT ---
Author Author ALENA ÁLVAREZ [facility] Address [address] [place] [address] Care Team Providers Care Chip Tester Name Role Phone ALENA ÁLVAREZ Unavailable PROBLEMS Type Condition ICD9-CM Code CEL17-VQ Code Onset Dates Condition Status SNOMED Code Problem Hyperlipidemia E78.5 Active 33086368 Problem Arrhythmia as indication for cardiac pacemaker replacement I49.9 Active 05898409 Problem Sleep apnea, obstructive G47.33 Active 55162812 Problem Primary insomnia F51.01 Active 1883526 Problem Chronic pain G89.29 Active 05108371 Problem Morbid (severe) obesity due to excess calories E66.01 Active 326222806 Problem Body mass index (BMI) of 40.0-44.9 in adult Z68.41 Active 849149828 Problem Other male erectile dysfunction N52.8 Active 816156204 Problem Supraventricular tachycardia I47.1 Active 5762659 Problem Sarcoidosis D86.9 Active 61833631 Problem HTN (hypertension) I10 Active 55912226 Problem Blindness and low vision H54.10 Active 139857897 Problem Myocarditis, unspecified chronicity, 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 Active 40905053 Problem Migraine without aura and without status migrainosus, not intractable G43.009 Active 243700279 Problem 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 Active 558068361 Problem Problems related to release from fci Z65.2 Active 115560423167203 Problem Chronic pain syndrome G89.4 Active 737664712 Problem Major depressive disorder, recurrent, moderate F33.1 Active 31572392 Problem 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 Active 16412102 Problem Chronic tension headaches G44.229 Active 079346940 Problem Anxiety F41.9 Active 24520049 Problem Post-traumatic stress disorder, chronic F43.12 Active 289986471 Problem Environmental allergies Z91.09 Active 713872009 Problem Mitral valve prolapse I34.1 Active 849487230 Problem CAD (coronary artery disease) I25.10 Active 69261276 ALLERGIES No Information ENCOUNTERS Encounter Location Date Diagnosis [facility] [id number] [place] [address] 90509- 7274 Nov, [place] [address] 83581- 9764 Oct, [facility] [address] 88596- 3022 Oct, [facility] [address] 49003 [address]95 18 Oct, 2017 Insect bite (nonvenomous), left lower leg, initial encounter S80.862A ; Bitten or stung by nonvenomous insect and other nonvenomous arthropods, initial encounter W57.XXXA and BMI 40.0-44.9, adult Z68.41 [place] [address] 55883- 8240 06 Oct, 2017 Left leg pain M79.605 [place] [address] 93601- 6587 04 Oct, 2017 Post-traumatic stress disorder, unspecified F43.10 ; Major depressive disorder, recurrent, moderate F33.1 and Problems related to release from fci Z65.2 [place] [address] 70311- 1433 Sep, Arrhythmia as indication for cardiac pacemaker replacement I49.9 [place] [address] 94013- 5744 Sep, [place] [address] 62523- 5847 Sep, HTN (hypertension) I10 [place] [address] 51389- 5427 Sep, [place] [id number] [place] [address] 50082- 7123 Sep, Body mass index (BMI) of 40.0-44.9 in adult Z68.41 ; Chronic pain G89.29 and Supraventricular tachycardia I47.1 [facility] [id number] [place] [address] 59315- 3099 Sep, [facility] [id number] [place] [address] 54252- 7337 Sep, Sarcoidosis D86.9 [facility] [address] 72622- 6286 Sep, Sarcoidosis D86.9 [facility] [id number] [place] [address] 32253- 3493 Sep, [facility] [id number] [place] [address] 35469- 7044 Sep, [facility] [id number] [place] [address] 18286- 8342 Sep, [facility] [id number] [place] [address] 90504- 8650 Sep, [facility] [id number] [place] [address] 72062- 5340 Sep, Left leg pain M79.605 [facility] [id number] [place] [address] 02651- 2277 Sep, HTN (hypertension) I10 [facility] [id number] [place] [address] 65231- 5661 Sep, [facility] [id number] [place] [address] 01648- 1740 Sep, Post-traumatic stress disorder, unspecified F43.10 ; Major depressive disorder, recurrent, moderate F33.1 and Problems related to release from fci Z65.2 [facility] [id number] [place] [address] 92103- 1033 Sep, [facility] [id number] [place] [address] 15911- 6685 Aug, [place] [id number] [place] [address] 97443- 9968 Aug, Sarcoidosis D86.9 [place] [address] 34093- 8395 Aug, Sarcoidosis D86.9 [place] [id number] [place] [address] 29373- 0473 Aug, HTN (hypertension) I10 [place] [address] 19615- 3038 Aug, Post-traumatic stress disorder, unspecified F43.10 ; Major depressive disorder, recurrent, moderate F33.1 and Problems related to release from fci Z65.2 [place] [address] 07082- 5346 11 Aug, 2017 [place] [address] 55909- 4103 Aug, Left leg pain M79.605 [place] [id number] [place] [address] 68887- 4613 26 Jul, 2017 Post-traumatic stress disorder, chronic F43.12 ; Anxiety F41.9 ; Problems related to release from fci Z65.2 and BMI 40.0-44.9, adult Z68.41 [place] [id number] [place] [address] 86338- 7130 20 Jul, 2017 HTN (hypertension) I10 ; Body mass index (BMI) of 40.0-44.9 in adult Z68.41 ; Acute swimmer''s ear of both sides H60.333 and Chronic pain G89.29 [place] [address] 35956- 9226 19 Jul, 2017 Glaucoma H40.9 [place] [id number] [place] [address] 37471- 2535 14 Jul, 2017 [place] [address] 19472- 4473 13 Jul, 2017 Sarcoidosis D86.9 [facility] [id number] [place] [address] 70876- 5707 Jul, Left leg pain M79.605 [facility] [id number] [place] [address] 20997- 1809 Jul, Sarcoidosis D86.9 [facility] [id number] [place] [address] 94924- 7141 Jul, Post-traumatic stress disorder, unspecified F43.10 ; Major depressive disorder, recurrent, moderate F33.1 and Problems related to release from fci Z65.2 [facility] [address] 99722- 1079 June, [facility] [id number] [place] [address] 03214 -4402 June, Sore throat J02.9 and BMI 40.0-44.9, adult Z68.41 [facility] [id number] [place] [address] 35613- 7881 June, [facility] [address] 58067- 2916 June, [facility] [id number] [place] [address] 87552- 7530 June, [facility] [id number] [place] [address] 71259- 2833 June, Left leg pain M79.605 [facility] [id number] [place] [address] 55126- 2080 June, Sarcoidosis D86.9 [facility] [id number] [place] [address] 96597- 4668 June, [facility] [id number] [place] [address] 95742- 0579 June, [facility] [id number] [place] [address] 10862- 1309 June, Left leg pain M79.605 [facility] [address] [place] [address] 07561- 5204 May, [facility] [id number] [place] [address] 19238- 2626 May, [facility] [id number] [place] [address] 47721- 3487 May, [facility] [id number] [place] [address] 90823- 7034 May, Left leg pain M79.605 [place] [id number] [place] [address] 20299- 0891 May, Post-traumatic stress disorder, unspecified F43.10 ; Major depressive disorder, recurrent, moderate F33.1 and Problems related to release from fci Z65.2 [place] [id number] [place] [address] 64732- 4179 May, Chronic pain G89.29 ; Anxiety F41.9 ; Chest pain, unspecified type R07.9 and BMI 40.0-44.9, adult Z68.41 [place] [id number] [place] [address] 48338- 0576 Apr, [place] [address] [place] [address] 38238- 8853 Apr, Left leg pain M79.605 [facility] [address] [place] [address] 66160- 6044 Apr, Post-traumatic stress disorder, unspecified F43.10 ; Problems related to release from fci Z65.2 ; Anxiety F41.9 and BMI 40.0-44.9 , adult Z68.41 [place] [address] [address]- 0062 Apr, [facility] [id number] [place] [address] 37182- 5991 Apr, Left leg pain M79.605 [place] [id number] [place] [address] 34337- 3845 13 Apr, 2017 Post-traumatic stress disorder, unspecified F43.10 ; Major depressive disorder, recurrent, moderate F33.1 and Problems related to release from fci Z65.2 [place] [address] 16510- 3207 12 Apr, 2017 [place] [address] 47542- 9119 12 Apr, 2017 Chronic pain G89.29 ; 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 ; Morbid (severe) obesity due to excess calories E66.01 ; Anxiety F41.9 and BMI 40.0-44.9, adult Z68.41 [facility] [place] [id number] [place] [address] 73296 -8743 10 Apr, 2017 Sore throat J02.9 and BMI 40.0-44.9, adult Z68.[address] 11745- 6666 02 Apr, 2017 Left leg pain M79.605 [facility] [address] [id number] 28 Mar, 2017 Dental examination Z01.20 [place] [id number] [place] [address] 07119- 4651 Mar, [facility] [address] 34684 -9271 Mar, Cough R05 ; Viral gastroenteritis A08.4 and BMI 40.0-44.9, adult Z68.[address] 00504- 3926 19 Mar, 2017 Left leg pain M79.605 [place] [address] 78571- 3999 06 Mar, 2017 Post-traumatic stress disorder, unspecified F43.10 ; Major depressive disorder, recurrent, moderate F33.1 and Problems related to release from fci Z65.2 [place] [id number] [place] [address] 52683- 9650 Feb, Left leg pain M79.605 [facility] [id number] [place] [address] 19570- 0313 Feb, [place] [id number] [place] [address] 56937- 6054 Feb, BMI 40.0-44.9, adult Z68.41 ; Chronic pain syndrome G89.4 ; Migraine without aura and without status migrainosus, not intractable G43.009 ; Mitral valve prolapse I34.1 and 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 [place] [id number] [place] [address] 14984- 7476 Feb, Post-traumatic stress disorder, chronic F43.12 ; Anxiety F41.9 ; Problems related to release from fci Z65.2 and BMI 40.0-44.9, adult Z68.41 [place] [id number] [place] [address] 50262- 2650 Feb, Post-traumatic stress disorder, unspecified F43.10 ; Major depressive disorder, recurrent, moderate F33.1 and Problems related to release from fci Z65.2 [place] [address] [place] [address] 62259- 1811 Feb, Left leg pain M79.605 [place] [id number] [place] [address] 47430- 9819 Jan, Post-traumatic stress disorder, unspecified F43.10 ; Major depressive disorder, recurrent, moderate F33.1 and Problems related to release from fci Z65.2 [place] [id number] [place] [address] 18971- 2246 Jan, [place] [id number] [place] [address] 05672- 5193 Jan, [place] [address] [address]- 8907 Jan, Anxiety F41.9 [place] [id number] [place] [address] 40478- 9058 13 Jan, 2017 Left leg pain M79.605 [place] [address] [address]- 5618 Dec, Left leg pain M79.605 [place] [id number] [place] [address] 46952- 9786 Dec, [place] [address] [place] [address] 60317- 6738 Dec, Post-traumatic stress disorder, unspecified F43.10 ; Major depressive disorder, recurrent, moderate F33.1 and Problems related to release from fci Z65.2 [place] [id number] [place] [address] 73148- 8422 31 Nov, 2016 Chronic pain G89.29 and Anxiety F41.9 [place] [address] [place] [address] 28130- 1385 24 Nov, 2016 Chronic pain G89.29 and Anxiety F41.9 [place] [address] [place] [address] 86363- 6102 16 Nov, 2016 Post-traumatic stress disorder, unspecified F43.10 ; Major depressive disorder, recurrent, moderate F33.1 and Problems related to release from fci Z65.2 [place] [address] [address]- 8447 09 Nov, 2016 Other abnormal findings in specimens from other organs, systems and tissues R89.8 ; Other male erectile dysfunction N52.8 ; Body mass index (BMI) of 40.0-44.9 in adult Z68.41 and Morbid (severe) obesity due to excess calories E66.01 [place] [address] [address]- 8866 02 Nov, 2016 Post-traumatic stress disorder, unspecified F43.10 ; Major depressive disorder, recurrent, moderate F33.1 and Problems related to release from fci Z65.2 [facility] [address] [id number] 29 Oct, 2016 Dental examination Z01.20 [facility] [address] [place] [address] 14257- 4536 28 Oct, 2016 [facility] [id number] [place] [address] 36159- 2856 Oct, Encounter for immunization Z23 [place] [id number] [place] [address] 82457- 1235 Oct, Chronic pain G89.29 ; Anxiety F41.9 ; Arrhythmia as indication for cardiac pacemaker replacement I49.9 and Glaucoma H40.9 [place] [address] [place] [address] 57093- 6424 Oct, Anxiety F41.9 ; Post-traumatic stress disorder, chronic F43.12 and Problems related to release from fci Z65.2 [facility] [address] [place] [address] 23326- 8797 Oct, Post-traumatic stress disorder, unspecified F43.10 ; Major depressive disorder, recurrent, moderate F33.1 and Problems related to release from fci Z65.2 [facility] [address] [place] [address] 36623- 0124 Sep, Chronic pain G89.29 and Anxiety F41.9 [facility] [address] [place] [address] 48819- 2176 Sep, Post-traumatic stress disorder, unspecified F43.10 ; Major depressive disorder, recurrent, moderate F33.1 and Problems related to release from fci Z65.2 [facility] [address] [place] [address] 82651- 8033 Sep, Post-traumatic stress disorder, unspecified F43.10 ; Major depressive disorder, recurrent, moderate F33.1 and Problems related to release from fci Z65.2 [place] [address] [place] [address] 71400- 9196 Sep, Chronic pain G89.29 [place] [id number] [place] [address] 07684- 6051 Aug, Dental caries, unspecified K02.9 [place] [id number] [place] [address] 37920- 5325 Aug, Sleep apnea, obstructive G47.33 ; Obesity E66.9 ; Chronic pain G89.29 ; HTN (hypertension) I10 ; Major depressive disorder, recurrent, moderate F33.1 ; Anxiety F41.9 ; Chronic tension headaches G44.229 ; Mitral valve prolapse I34.1 ; Arrhythmia as indication for cardiac pacemaker replacement I49.9 ; Dental caries, unspecified K02.9 ; Primary insomnia F51.01 and Hyperlipidemia E78.5 [place] [id number] [place] [address] 00823- 8379 Aug, Post-traumatic stress disorder, unspecified F43.10 ; Major depressive disorder, recurrent, moderate F33.1 and Problems related to release from fci Z65.2 [place] [id number] [place] [address] 51662- 1227 Aug, Dental examination Z01.20 [facility] [address] [place] [address] [id number] 13 Aug, 2016 Dental examination Z01.20 [place] [id number] [place] [address] 99821- 5591 06 Aug, 2016 Post-traumatic stress disorder, unspecified F43.10 ; Major depressive disorder, recurrent, moderate F33.1 and Problems related to release from fci Z65.2 [place] [id number] [place] [address] 29843- 3960 05 Aug, 2016 Chronic pain G89.29 and Primary insomnia F51.01 [place] [address] [place] [address] 25036- 1458 Jul, [place] [address] [address]- 1580 Jul, [place] [id number] [place] [address] 64638- 1554 Jul, Nausea R11.0 [place] [id number] [place] [address] 17834- 4650 Jul, Arrhythmia as indication for cardiac pacemaker replacement I49.9 [place] [id number] [place] [address] 71427- 0924 13 Jul, 2016 Post-traumatic stress disorder, unspecified F43.10 ; Major depressive disorder, recurrent, moderate F33.1 and Problems related to release from fci Z65.2 [place] [id number] [place] [address] 60373- 4334 09 Jul, 2016 Anxiety F41.9 [place] [id number] [place] [address] 01452- 9333 08 Jul, 2016 Chronic pain G89.29 [place] [id number] [place] [address] 20062- 0117 02 Jul, 2016 Sleep apnea, obstructive G47.33 ; Hyperlipidemia E78.5 ; Chronic pain G89.29 ; Blindness and low vision H54.10 ; Major depressive disorder, recurrent, moderate F33.1 ; Anxiety F41.9 ; Mitral valve prolapse I34.1 ; Arrhythmia as indication for cardiac pacemaker replacement I49.9 ; Primary insomnia F51.01 ; Bilateral headaches R51 and Environmental allergies Z91.[address] [place] [address] 98657- 2291 Jul, Post-traumatic stress disorder, unspecified F43.10 ; Major depressive disorder, recurrent, moderate F33.1 and Problems related to release from fci Z65.2 [address] [place] [address] 13615- 2979 June, Post-traumatic stress disorder, chronic F43.12 ; Anxiety F41.9 ; Problems related to release from fci Z65.2 ; Sleep apnea, obstructive G47.33 and Primary insomnia F51.01 [place] [address] [place] [address] 23007- 4715 June, [place] [id number] [place] [address] 38491- 7923 June, [place] [id number] [place] [address] 42188- 9640 June, [place] [id number] [place] [address] 38197- 5302 June, Chronic pain G89.29 [place] [id number] [place] [address] 55346- 8455 June, Chronic pain G89.29 [place] [id number] [place] [address] 29932- 2953 June, Lipoma of left lower extremity D17.24 ; Open wound T14.8 and Swelling of left lower extremity M79.89 [place] [id number] [place] [address] 70625- 7412 June, Post-traumatic stress disorder, unspecified F43.10 ; Major depressive disorder, recurrent, moderate F33.1 and Problems related to release from fci Z65.2 [address] [place] [address] 52635- 1339 May, Lipoma of left lower extremity D17.24 ; Major depressive disorder, recurrent, moderate F33.1 ; Sleep apnea, obstructive G47.33 ; Hyperlipidemia E78.5 ; Obesity E66.9 ; HTN (hypertension) I10 ; Glaucoma H40.9 ; CAD (coronary artery disease) I25.10 ; Chronic tension headaches G44.229 ; Chronic pain G89.29 ; Anxiety F41.9 ; Nausea R11.0 and Primary insomnia F51.01 [place] [address] [place] [address] 80268- 1861 May, [place] [id number] [place] [address] 13951- 9673 May, Chronic pain G89.29 [place] [address] [address]- 4622 May, [place] [id number] [place] [address] 18360- 1396 Apr, Post-traumatic stress disorder, unspecified F43.10 ; Major depressive disorder, recurrent, moderate F33.1 and Problems related to release from fci Z65.2 [place] [id number] [place] [address] 90395- 4118 Apr, Primary insomnia F51.01 ; Post-traumatic stress disorder, chronic F43.12 and Problems related to release from fci Z65.2 [place] [id number] [place] [address] 19911- 8143 17 Apr, 2016 Post-traumatic stress disorder, unspecified F43.10 ; Major depressive disorder, recurrent, moderate F33.1 and Problems related to release from fci Z65.2 [place] [address] [place] [address] 28747- 0432 Apr, [place] [id number] [place] [address] 92756- 0764 Apr, Sleep apnea, obstructive G47.33 ; Chronic pain G89.29 ; HTN (hypertension) I10 ; Mitral valve prolapse I34.1 ; Shoulder pain, left M25.512 ; Arrhythmia as indication for cardiac pacemaker replacement I49.9 ; Glaucoma H40.9 ; Bilateral headaches R51 ; Environmental allergies Z91.09 ; Primary insomnia F51.01 and Nausea R11.0 [place] [address] [address]- 8009 Apr, [place] [id number] [place] [address] 33130- 7578 Apr, [place] [address] [address]- 3948 Apr, Post-traumatic stress disorder, unspecified F43.10 ; Major depressive disorder, recurrent, moderate F33.1 and Problems related to release from fci Z65.2 [facility] [address] [address]- 1876 Apr, HTN (hypertension) I10 [facility] [address] [place] [address]- 0020 Apr, HTN (hypertension) I10 [facility] [id number] [place] [address] 90360- 0919 14 Mar, 2016 Chronic pain G89.29 ; Primary insomnia F51.01 and Problems related to release from fci Z65.2 [place] [id number] [place] [address] 85369- 6714 07 Mar, 2016 Post-traumatic stress disorder, unspecified F43.10 ; Major depressive disorder, recurrent, moderate F33.1 and Problems related to release from fci Z65.2 [place] [id number] [place] [address] 28821- 3798 Feb, Post-traumatic stress disorder, unspecified F43.10 ; Major depressive disorder, recurrent, moderate F33.1 and Problems related to release from fci Z65.2 [place] [id number] [place] [phone] Feb, Chronic tension headaches G44.229 [place] [id number] [place] [phone] Feb, Sleep apnea, obstructive G47.33 ; Obesity [...] pacemaker replacement I49.9 and Primary insomnia F51.01 [place] [id number] [place] [address] Feb, Post-traumatic stress disorder, unspecified F43.10 and Chronic pain G89.29 [facility] [id number] [address] Feb, [facility] [id number] [id number] Feb, Dental caries K02.9 [facility] [id number] [place] [address] 00114- 4030 Feb, [facility] [id number] [place] [address] 43596- 7355 Feb, Post-traumatic stress disorder, unspecified F43.10 ; Major depressive disorder, recurrent, moderate F33.1 and Problems related to release from fci Z65.2 [facility] [id number] [place] [address] 19222- 5811 Jan, Sleep apnea, obstructive G47.33 and Chronic pain G89.29 [facility] [id number] [place] [address] 65118- 8779 Jan, [facility] [id number] [place] [address] 64478- 9154 14 Jan, 2016 Dental examination Z01.20 [facility] [id number] [place] [address] 95324- 2268 Jan, [facility] [address] [address] Jan, [facility] [id number] [place] [address] 90433- 0048 Dec, Post-traumatic stress disorder, unspecified F43.10 ; Major depressive disorder, recurrent, moderate F33.1 and Problems related to release from fci Z65.2 [facility] [address] [address] 29 Dec, 2015 Encounter for immunization Z23 ; Problems related to release from fci Z65.2 ; Sleep apnea, obstructive G47.33 and Post-traumatic stress disorder, chronic F43.12 [place] [id number] [place] [address] 61407- 3518 18 Dec, 2015 Sleep apnea, obstructive G47.33 ; Hyperlipidemia E78.5 ; Chronic pain G89.29 ; Glaucoma H40.9 ; HTN (hypertension) I10 ; Post-traumatic stress disorder, unspecified F43.10 ; Anxiety F41.9 ; Chronic tension headaches G44.229 ; Mitral valve prolapse I34.1 and CAD (coronary artery disease) I25.10 [place] [address] 40030- 4712 Dec, Post-traumatic stress disorder, unspecified F43.10 ; Major depressive disorder, recurrent, moderate F33.1 and Problems related to release from fci Z65.2 [place] [address] 48921- 9832 Nov, Chronic pain G89.[address] 67281- 0078 Nov, Post-traumatic stress disorder, unspecified F43.10 ; Major depressive disorder, recurrent, moderate F33.1 and Problems related to release from fci Z65.2 [place] [address] 87762- 2707 Oct, [place] [address] 89958- 9067 Oct, [place] [address] 93442- 1490 16 Oct, 2015 Post-traumatic stress disorder, unspecified F43.10 ; Major depressive disorder, recurrent, moderate F33.1 and Problems related to release from fci Z65.2 [place] [address] 19890- 7072 08 Oct, 2015 [place] [address] 28165- 9107 07 Oct, 2015 Environmental allergies Z91.09 ; Cough R05 and 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 [facility] [address] [address] Sep, [facility] [id number] [place] [address] 98867- 7897 Sep, Post-traumatic stress disorder, unspecified F43.10 ; Major depressive disorder, recurrent, moderate F33.1 and Problems related to release from fci Z65.2 [facility] [id number] [place] [address] 25613- 2990 Sep, Chronic pain G89.29 [facility] [id number] [place] [address] 07474- 7602 Sep, Pain in left shoulder M25.512 ; Pain in right shoulder M25.511 and Other chronic pain G89.29 [facility] [id number] [place] [address] 15672- 6672 Sep, [facility] [id number] [place] [address] 59084- 0536 Sep, [facility] [id number] [place] [address] 17793- 6599 Sep, [facility] [id number] [place] [address] [id number] Aug, Dental examination Z01.20 [facility] [id number] [place] [address] 42180- 6198 Aug, Post-traumatic stress disorder, unspecified F43.10 ; Open- angle glaucoma of both 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 and Problems related to release from fci Z65.2 [facility] [id number] [place] [address] 76792- 8820 Aug, [facility] [id number] [place] [address] 99174- 8806 Aug, Sleep apnea, obstructive G47.33 ; Obesity E66.9 ; Hyperlipidemia E78.5 ; Bilateral headaches R51 ; HTN (hypertension) I10 ; Post- traumatic stress disorder, unspecified F43.10 ; Anxiety F41.9 ; Neuropathy G62.9 ; Glaucoma H40.9 and Chronic pain G89.29 [facility] [id number] [place] [address] [id number] Aug, Encounter for dental examination Z01.20 [facility] [id number] [place] [address] 92211- 5707 08 Aug, 2015 Post-traumatic stress disorder, unspecified F43.10 ; Major depressive disorder, recurrent, moderate F33.1 and Problems related to release from fci Z65.2 [facility] [id number] [place] [address] 64404- 4774 Aug, [facility] [id number] [place] [address] 71861- 6111 Jul, [facility] [id number] [place] [address] 63902- 9291 Jul, Post-traumatic stress disorder, unspecified F43.10 and Major depressive disorder, recurrent, moderate F33.1 [facility] [id number] [place] [address] 73257- 2007 Jul, [facility] [id number] [place] [address] 84804- 2616 Jul, [facility] [id number] [place] [address] 82588- 1318 Jul, Chronic pain G89.29 [facility] [id number] [place] [address] 34735- 4004 June, Post-traumatic stress disorder, unspecified F43.10 and Major depressive disorder, recurrent, moderate F33.1 [facility] [id number] [place] [address] 24665- 5918 June, [facility] [id number] [place] [address] 25561- 8168 June, Chronic pain G89.29 [facility] [id number] [place] [address] 39094- 0295 June, Post-traumatic stress disorder, unspecified F43.10 and Major depressive disorder, recurrent, moderate F33.1 [facility] [id number] [place] [address] 86334- 3690 May, Post-traumatic stress disorder, unspecified F43.10 and Major depressive disorder, recurrent, moderate F33.1 [facility] [id number] [place] [address] 22306- 4714 May, [facility] [id number] [place] [address] 48849- 8710 May, [facility] [id number] [place] [address] 44548- 6257 May, [facility] [id number] [place] [address] 64608- 1086 Apr, [facility] [id number] [place] [address] 41830- 8487 Apr, Post-traumatic stress disorder, unspecified F43.10 and Sleep apnea, obstructive G47.33 [facility] [id number] [place] [address] 16430- 8387 Apr, [facility] [id number] [place] [address] 07635- 8992 Apr, Shoulder pain, left M25.512 [facility] [id number] [place] [address] 26364- 6983 18 Apr, 2015 Post-traumatic stress disorder, unspecified F43.10 and Major depressive disorder, recurrent, moderate F33.1 [facility] [id number] [place] [address] 60276- 9748 17 Apr, 2015 [facility] [id number] [place] [address] 40023- 9052 11 Apr, 2015 [facility] [id number] [place] [address] 10866- 4210 08 Apr, 2015 [place] [id number] [place] [address] 49037- 0238 Apr, Left shoulder pain M25.512 [place] [id number] [place] [address] 84657- 5412 Mar, [place] [id number] [place] [address] 53578- 3963 Mar, [place] [id number] [place] [address] 55787- 0428 Mar, [place] [place] [id number] [place] [address] 47366- 2362 Mar, Sleep apnea, obstructive G47.33 ; Obesity E66.9 ; Chronic pain G89.29 ; Hyperlipidemia E78.5 ; HTN (hypertension) I10 ; Blindness and low vision H54.10 ; Major depressive disorder, recurrent, moderate F33.1 and Anxiety F41.9 [place] [id number] [place] [address] 96410- 1748 Mar, [place] [id number] [place] [address] 40852- 2501 Mar, Post-traumatic stress disorder, unspecified F43.10 and Major depressive disorder, recurrent, moderate F33.1 [place] [id number] [place] [address] 00875- 7904 Mar, [place] [id number] [place] [address] 87848- 9978 Mar, HTN (hypertension) I10 ; Blindness and low vision H54.10 ; Obesity E66.9 ; Hyperlipidemia E78.5 ; Glaucoma H40.9 ; Chronic pain G89.29 and CAD (coronary artery disease) I25.10 [place] [id number] [place] [address] 13738- 4876 Feb, [place] [id number] [place] [address] 80357- 4986 Feb, Post-traumatic stress disorder, unspecified F43.10 ; Obesity E66.9 ; Sleep apnea, obstructive G47.33 and 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 [place] [id number] [place] [address] 36787- 2292 Feb, Post-traumatic stress disorder, unspecified F43.10 and Major depressive disorder, recurrent, moderate F33.1 [place] [address] 78293- 3220 Feb, [place] [address] 47317- 6056 Feb, [place] [address] 44385- 2231 Feb, HTN (hypertension) I10 ; Post-traumatic stress disorder, unspecified F43.10 ; Blindness and low vision H54.10 ; Obesity E66.9 ; Hyperlipidemia E78.5 ; Chronic pain G89.29 ; Glaucoma H40.9 ; Mitral valve prolapse I34.1 and Bilateral headaches R51 [place] [address] 80865- 6325 Feb, [place] [address] 05265- 9635 Feb, Post-traumatic stress disorder, unspecified F43.10 and Major depressive disorder, recurrent, moderate F33.1 [place] [id number] [place] [address] 44817- 5760 Feb, [place] [place] [id number] [place] [address] 52310- 3021 Feb, [place] [address] 46434- 7026 Jan, [place] [address] 52661- 0568 Jan, [place] [address] 17988- 8726 Jan, Obesity E66.9 ; HTN (hypertension) I10 ; Blindness and low vision H54.10 ; Major depressive disorder, recurrent, moderate F33.1 ; Glaucoma H40.9 ; Hyperlipidemia E78.5 ; Sleep apnea, obstructive G47.33 ; Chronic pain G89.29 ; Anxiety F41.9 ; Chronic tension headaches G44.229 and Cough R05 [place] [address]- [address] Jan, [address] 879064- 1150 Jan, [place] [address]- 6995 Jan, Post-traumatic stress disorder, unspecified F43.10 ; Obesity E66.9 ; Sleep apnea, obstructive G47.33 and 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 [place]- 7901 Jan, [address] 70046- 1734 Jan, Post-traumatic stress disorder, unspecified F43.10 and Major depressive disorder, recurrent, moderate F33.1 [id number] [place] [address] 80135- 0204 Dec, [address] 39362- 8390 Dec, Sleep apnea, obstructive G47.33 ; Obesity E66.9 ; Hyperlipidemia E78.5 ; Glaucoma H40.9 ; Chronic pain G89.29 ; HTN (hypertension ) I10 ; Blindness and low vision H54.10 ; Anxiety F41.9 and CAD (coronary artery disease) I25.10 [place] [id number] [place] [address] 77168- 2955 Nov, [id number]- 1938 Nov, [facility] [id number] [place] [address] 11265- 3426 Nov, [facility] [address] 74331- 3953 Nov, [facility] [address] 09352- 5516 Nov, [facility] [address] 92352- 3420 Nov, Encounter for immunization Z23 ; Sleep apnea, obstructive G47.33 ; Obesity E66.9 ; Hyperlipidemia E78.5 ; Glaucoma H40.9 ; Chronic pain G89.29 ; Anxiety F41.9 ; Chronic tension headaches G44.229 and HTN (hypertension ) I10 [facility] [address] 47540- 9401 Nov, [facility] [address] 61255- 8437 Nov, [facility] [address] 98372- 9008 Nov, Dizziness R42 [facility] [address] 08860- 1731 Nov, [facility] [id number] [place] [address] 33131- 9501 29 Oct, 2014 [facility] [address] 53457- 4644 28 Oct, 2014 [facility] [address] 70351- 9266 Oct, [facility] [address] 82241- 2587 Oct, [facility] [id number] [place] [address] 15449- 0295 17 Oct, 2014 Dizziness 780.4 ; Essential hypertension 401.9 ; Obesity 278.00 ; Hyperlipidemia 272.4 ; Chronic pain 338.29 ; Glaucoma 365.9 and Anxiety 300.00 [facility] [id number] [place] [address] 64023- 4101 Oct, Essential hypertension 401.9 ; Hyperlipidemia 272.4 ; Glaucoma 365.9 ; Obesity 278.00 ; Chronic pain 338.29 and Allergy to insects V15.06 [facility] [id number] [place] [address] 90237- 1555 Sep, [facility] [id number] [place] [address] 62879- 7009 Sep, [facility] [id number] [place] [address] 88173- 3002 Sep, [facility] [id number] [place] [address] 56116- 6880 Sep, [facility] [id number] [place] [address] 84700- 0264 Aug, Essential hypertension 401.9 ; Obesity 278.00 ; Hyperlipidemia 272.4 ; Glaucoma 365.9 ; Lipoma 214.9 ; Mitral valve prolapse 424.0 ; Angina at rest 413.9 ; Lymphedema 457.1 and Chronic pain 338.29 IMMUNIZATIONS No Known Immunizations SOCIAL HISTORY Never Assessed REASON FOR VISIT bp check PLAN OF CARE VITAL SIGNS Height 67 in 2017-09-30 Blood pressure systolic 112 mmHg 2017-09-30 Blood pressure diastolic 74 mmHg 2017-09-30 MEDICATIONS Medication Instructions Dosage Frequency Start Date End Date Duration Status Nitrostat 0.4 MG Sublingual every 5 minutes x 3 PRN 1 tablet 30 days Active RESULTS No [...]
--- OUTSIDE RECORDS SUMMARY | 2018-02-04 14:19 | XMS REPORT ---
Author Author ALENA ÁLVAREZ [facility] Address [address] [place] [address] Care Team Providers Care Manager Diabetes Name Role Phone ALENA ÁLVAREZ Unavailable PROBLEMS Type Condition ICD9-CM Code XSU50-VS Code Onset Dates Condition Status SNOMED Code Problem Hyperlipidemia E78.5 Active 75257028 Problem Arrhythmia as indication for cardiac pacemaker replacement I49.9 Active 82520608 Problem Sleep apnea, obstructive G47.33 Active 27768815 Problem Primary insomnia F51.01 Active 6193181 Problem Chronic pain G89.29 Active 55592360 Problem Morbid (severe) obesity due to excess calories E66.01 Active 632827788 Problem Body mass index (BMI) of 40.0-44.9 in adult Z68.41 Active 910078513 Problem Other male erectile dysfunction N52.8 Active 360139452 Problem Supraventricular tachycardia I47.1 Active 2205661 Problem Sarcoidosis D86.9 Active 36232755 Problem HTN (hypertension) I10 Active 19717901 Problem Blindness and low vision H54.10 Active 353574677 Problem Myocarditis, unspecified chronicity, 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 Active 73615025 Problem Migraine without aura and without status migrainosus, not intractable G43.009 Active 386474974 Problem 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 Active 919462709 Problem Problems related to release from intermediate Z65.2 Active [id number] Problem Chronic pain syndrome G89.4 Active 428486598 Problem Major depressive disorder, recurrent, moderate F33.1 Active 65555862 Problem 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 Active 58669206 Problem Chronic tension headaches G44.229 Active 038052334 Problem Anxiety F41.9 Active 62758624 Problem Post-traumatic stress disorder, chronic F43.12 Active 896234802 Problem Environmental allergies Z91.09 Active 887624859 Problem Mitral valve prolapse I34.1 Active 726967978 Problem CAD (coronary artery disease) I25.10 Active 46448435 ALLERGIES No Information ENCOUNTERS Encounter Location Date Diagnosis [facility] [id number] [place] [address] 05485- 3616 Nov, [facility] [address] 39906- 7629 Oct, [facility] [address] 26790- 8918 Oct, [facility] [address] 04994- 1749 Oct, [facility] [address] 0[address] -[address] 18 Oct, 2017 Insect bite (nonvenomous), left lower leg, initial encounter S80.862A ; Bitten or stung by nonvenomous insect and other nonvenomous arthropods, initial encounter W57.XXXA and BMI 40.0-44.9, adult Z68.41 [facility] [address] 69334- 4661 06 Oct, 2017 Left leg pain M79.605 [facility] [address] 98310- 4005 04 Oct, 2017 Post-traumatic stress disorder, unspecified F43.10 ; Major depressive disorder, recurrent, moderate F33.1 and Problems related to release from intermediate Z65.2 [facility] [id number] [place] [address] 76042- 9706 Sep, Arrhythmia as indication for cardiac pacemaker replacement I49.9 [facility] [id number] [place] [address] 95775- 2082 Sep, [facility] [address] 19805- 0767 Sep, HTN (hypertension) I10 [facility] [id number] [place] [address] 71744- 1230 Sep, [facility] [id number] [place] [address] 40060- 1983 16 Sep, 2017 Body mass index (BMI) of 40.0-44.9 in adult Z68.41 ; Chronic pain G89.29 and Supraventricular tachycardia I47.1 [facility] [id number] [place] [address] 66223- 4882 15 Sep, 2017 [facility] [address] 50042- 5390 Sep, Sarcoidosis D86.9 [facility] [address] 94984- 1436 Sep, Sarcoidosis D86.9 [facility] [id number] [place] [address] 75886- 3876 Sep, [facility] [id number] [place] [address] 60996- 2890 Sep, [facility] [id number] [place] [address] 80639- 4023 Sep, [facility] [id number] [place] [address] 45270- 8654 Sep, [facility] [id number] [place] [address] 98047- 4550 Sep, Left leg pain M79.605 [facility] [id number] [place] [address] 48180- 2764 Sep, HTN (hypertension) I10 [facility] [id number] [place] [address] 34332- 2599 Sep, [facility] [id number] [place] [address] 17767- 0945 Sep, Post-traumatic stress disorder, unspecified F43.10 ; Major depressive disorder, recurrent, moderate F33.1 and Problems related to release from intermediate Z65.2 [facility] [id number] [place] [address] 54593- 5122 Sep, [facility] [id number] [place] [address] 61525- 0183 Aug, [facility] [address] 18030- 2239 Aug, Sarcoidosis D86.9 [facility] [id number] [place] [address] 86075- 2803 Aug, Sarcoidosis D86.9 [facility] [address] 55574- 1707 Aug, HTN (hypertension) I10 [facility] [address] 38796- 0163 Aug, Post-traumatic stress disorder, unspecified F43.10 ; Major depressive disorder, recurrent, moderate F33.1 and Problems related to release from intermediate Z65.2 [facility] [address] 72989- 2111 Aug, [facility] [address] 62180- 2625 Aug, Left leg pain M79.605 [facility] [id number] [place] [address] 27022- 6388 Jul, Post-traumatic stress disorder, chronic F43.12 ; Anxiety F41.9 ; Problems related to release from intermediate Z65.2 and BMI 40.0-44.9, adult Z68.41 [facility] [id number] [place] [address] 94649- 2232 20 Jul, 2018 HTN (hypertension) I10 ; Body mass index (BMI) of 40.0-44.9 in adult Z68.41 ; Acute swimmer''s ear of both sides H60.333 and Chronic pain G89.29 [facility] [id number] [place] [address] 81204- 1263 19 Jul, 2017 Glaucoma H40.9 [facility] [id number] [place] [address] 75715- 1948 Jul, [facility] [id number] [place] [address] 71615- 3278 Jul, Sarcoidosis D86.9 [facility] [id number] [place] [address] 85357- 1393 Jul, Left leg pain M79.605 [facility] [id number] [place] [address] 35463- 9449 Jul, Sarcoidosis D86.9 [facility] [id number] [place] [address] 69936- 3135 Jul, Post-traumatic stress disorder, unspecified F43.10 ; Major depressive disorder, recurrent, moderate F33.1 and Problems related to release from intermediate Z65.2 [facility] [id number] [place] [address] 74003- 5505 June, [facility] [id number] [place] [address] 64169 -8089 June, Sore throat J02.9 and BMI 40.0-44.9, adult Z68.41 [facility] [id number] [place] [address] 22554- 3898 June, [facility] [id number] [place] [address] 54532- 8364 June, [facility] [id number] [place] [address] 35262- 9373 June, [facility] [id number] [place] [address] 33945- 2419 June, Left leg pain M79.605 [facility] [id number] [place] [address] 68759- 3979 June, Sarcoidosis D86.9 [facility] [id number] [place] [address] 35409- 2274 June, [facility] [id number] [place] [address] 37620- 0312 June, [facility] [address] [address]- 6222 June, Left leg pain M79.605 [facility] [id number] [address]- 4039 May, [facility] [id number] [place] [address] 02791- 3567 May, [facility] [id number] [place] [address] 89927- 5700 May, [facility] [id number] [place] [address] 99468- 5341 May, Left leg pain M79.605 [facility] [id number] [place] [address] 83439- 7199 May, Post-traumatic stress disorder, unspecified F43.10 ; Major depressive disorder, recurrent, moderate F33.1 and Problems related to release from intermediate Z65.2 [facility] [id number] [place] [address] 59849- 9878 May, Chronic pain G89.29 ; Anxiety F41.9 ; Chest pain, unspecified type R07.9 and BMI 40.0-44.9, adult Z68.41 [facility] [address] [address]- 5941 Apr, [facility] [id number] [place] [address] 88323- 4122 Apr, Left leg pain M79.605 [facility] [id number] [place] [address] 63919- 7963 Apr, Post-traumatic stress disorder, unspecified F43.10 ; Problems related to release from intermediate Z65.2 ; Anxiety F41.9 and BMI 40.0-44.9 , adult Z68.41 [facility] [id number] [place] [address] 72174- 9750 Apr, [facility] [id number] [place] [address] 04597- 3336 Apr, Left leg pain M79.605 [facility] [address] 69976- 1607 13 Apr, 2017 Post-traumatic stress disorder, unspecified F43.10 ; Major depressive disorder, recurrent, moderate F33.1 and Problems related to release from intermediate Z65.2 [facility] [address] 79026- 2586 12 Apr, [address] 62291- 4259 12 Apr, 2017 Chronic pain G89.29 ; 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 ; Morbid (severe) obesity due to excess calories E66.01 ; Anxiety F41.9 and BMI 40.0-44.9, adult Z68.41 [facility] [address] 36369 -8853 10 Apr, 2017 Sore throat J02.9 and BMI 40.0-44.9, adult Z68.[address] 95934- 6541 02 Apr, 2017 Left leg pain M79.605 [facility] [address] [id number] Mar, Dental examination Z01.[address] 57799- 1165 Mar, [facility] [address] [place] [address] 48935 -7162 20 Mar, 2017 Cough R05 ; Viral gastroenteritis A08.4 and BMI 40.0-44.9, adult Z68.41 [facility] [id number] [place] [address] 51582- 1592 Mar, Left leg pain M79.605 [place] [id number] [place] [address] 28405- 9491 Mar, Post-traumatic stress disorder, unspecified F43.10 ; Major depressive disorder, recurrent, moderate F33.1 and Problems related to release from intermediate Z65.2 [facility] [id number] [place] [address] 57173- 7784 Feb, Left leg pain M79.605 [facility] [address] 02221- 4639 Feb, [facility] [id number] [place] [address] 55408- 8800 Feb, BMI 40.0-44.9, adult Z68.41 ; Chronic pain syndrome G89.4 ; Migraine without aura and without status migrainosus, not intractable G43.009 ; Mitral valve prolapse I34.1 and 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 98302- 3382 Feb, Post-traumatic stress disorder, chronic F43.12 ; Anxiety F41.9 ; Problems related to release from intermediate Z65.2 and BMI 40.0-44.9, adult Z68.41 [facility] [id number] [place] [address] 89804- 1806 Feb, Post-traumatic stress disorder, unspecified F43.10 ; Major depressive disorder, recurrent, moderate F33.1 and Problems related to release from intermediate Z65.2 [facility] [id number] [place] [address] 13199- 2977 Feb, Left leg pain M79.605 [facility] [id number] [place] [address] 81782- 6964 Jan, Post-traumatic stress disorder, unspecified F43.10 ; Major depressive disorder, recurrent, moderate F33.1 and Problems related to release from intermediate Z65.2 [facility] [id number] [place] [address] 74469- 2180 Jan, [facility] [address] [address]- 6175 Jan, [facility] [id number] [place] [address] 25830- 1139 Jan, Anxiety F41.9 [facility] [address] [address]- 3673 13 Jan, 2017 Left leg pain M79.605 [facility] [id number] [place] [address] 84556- 5594 Dec, Left leg pain M79.605 [facility] [id number] [place] [address] 08768- 9749 Dec, [facility] [id number] [place] [address] 86082- 3366 15 Dec, 2016 Post-traumatic stress disorder, unspecified F43.10 ; Major depressive disorder, recurrent, moderate F33.1 and Problems related to release from intermediate Z65.2 [facility] [id number] [place] [address] 85930- 7552 31 Nov, 2016 Chronic pain G89.29 and Anxiety F41.9 [facility] [id number] [place] [address] 49549- 3587 24 Nov, 2016 Chronic pain G89.29 and Anxiety F41.9 [facility] [id number] [place] [address] 33333- 7029 16 Nov, 2016 Post-traumatic stress disorder, unspecified F43.10 ; Major depressive disorder, recurrent, moderate F33.1 and Problems related to release from intermediate Z65.2 [facility] [address] [address]- 6939 09 Nov, 2016 Other abnormal findings in specimens from other organs, systems and tissues R89.8 ; Other male erectile dysfunction N52.8 ; Body mass index (BMI) of 40.0-44.9 in adult Z68.41 and Morbid (severe) obesity due to excess calories E66.01 [facility] [address] [address]- 5365 02 Nov, 2016 Post-traumatic stress disorder, unspecified F43.10 ; Major depressive disorder, recurrent, moderate F33.1 and Problems related to release from intermediate Z65.2 [facility] [id number] [id number] 29 Oct, 2016 Dental examination Z01.20 [facility] [id number] [place] [address] 06855- 0058 Oct, [facility] [id number] [place] [address] 45340- 6245 Oct, Encounter for immunization Z23 [facility] [id number] [place] [address] 04880- 2385 Oct, Chronic pain G89.29 ; Anxiety F41.9 ; Arrhythmia as indication for cardiac pacemaker replacement I49.9 and Glaucoma H40.9 [facility] [id number] [place] [address] 72230- 2529 Oct, Anxiety F41.9 ; Post-traumatic stress disorder, chronic F43.12 and Problems related to release from intermediate Z65.2 [facility] [id number] [place] [address] 45242- 3280 07 Oct, 2016 Post-traumatic stress disorder, unspecified F43.10 ; Major depressive disorder, recurrent, moderate F33.1 and Problems related to release from intermediate Z65.2 [facility] [id number] [place] [address] 74438- 7994 Sep, Chronic pain G89.29 and Anxiety F41.9 [facility] [id number] [place] [address] 87253- 4606 Sep, Post-traumatic stress disorder, unspecified F43.10 ; Major depressive disorder, recurrent, moderate F33.1 and Problems related to release from intermediate Z65.2 [facility] [address] [place] [address] 94261- 5179 Sep, Post-traumatic stress disorder, unspecified F43.10 ; Major depressive disorder, recurrent, moderate F33.1 and Problems related to release from intermediate Z65.2 [facility] [id number] [place] [address] 25133- 2938 Sep, Chronic pain G89.29 [facility] [id number] [place] [address] 45045- 8454 Aug, Dental caries, unspecified K02.9 [facility] [id number] [place] [address] 96212- 1141 Aug, Sleep apnea, obstructive G47.33 ; Obesity E66.9 ; Chronic pain G89.29 ; HTN (hypertension) I10 ; Major depressive disorder, recurrent, moderate F33.1 ; Anxiety F41.9 ; Chronic tension headaches G44.229 ; Mitral valve prolapse I34.1 ; Arrhythmia as indication for cardiac pacemaker replacement I49.9 ; Dental caries, unspecified K02.9 ; Primary insomnia F51.01 and Hyperlipidemia E78.5 [facility] [id number] [place] [address] 78904- 2421 Aug, Post-traumatic stress disorder, unspecified F43.10 ; Major depressive disorder, recurrent, moderate F33.1 and Problems related to release from intermediate Z65.2 [facility] [id number] [place] [address] 87211- 8601 Aug, Dental examination Z01.20 [facility] [id number] [place] [address] [id number] Aug, Dental examination Z01.20 [facility] [address] [place] [address] 34494- 2273 Aug, Post-traumatic stress disorder, unspecified F43.10 ; Major depressive disorder, recurrent, moderate F33.1 and Problems related to release from intermediate Z65.2 [facility] [id number] [place] [address] 77372- 9344 Aug, Chronic pain G89.29 and Primary insomnia F51.01 [facility] [address] [address]- 2308 Jul, [facility] [id number] [place] [address] 85406- 4551 Jul, [facility] [id number] [place] [address] 28125- 0390 Jul, Nausea R11.0 [facility] [id number] [place] [address] 48761- 9476 Jul, Arrhythmia as indication for cardiac pacemaker replacement I49.9 [facility] [id number] [place] [address] 20792- 2458 Jul, Post-traumatic stress disorder, unspecified F43.10 ; Major depressive disorder, recurrent, moderate F33.1 and Problems related to release from intermediate Z65.2 [facility] [id number] [place] [address] 06195- 9533 Jul, Anxiety F41.9 [facility] [id number] [place] [address] 25905- 3395 08 Jul, 2016 Chronic pain G89.29 [place] [id number] [place] [address] 55123- 8175 02 Jul, 2016 Sleep apnea, obstructive G47.33 ; Hyperlipidemia E78.5 ; Chronic pain G89.29 ; Blindness and low vision H54.10 ; Major depressive disorder, recurrent, moderate F33.1 ; Anxiety F41.9 ; Mitral valve prolapse I34.1 ; Arrhythmia as indication for cardiac pacemaker replacement I49.9 ; Primary insomnia F51.01 ; Bilateral headaches R51 and Environmental allergies Z91.09 [facility] [id number] [place] [address] 05197- 5565 Jul, Post-traumatic stress disorder, unspecified F43.10 ; Major depressive disorder, recurrent, moderate F33.1 and Problems related to release from intermediate Z65.2 [facility] [id number] [place] [address] 77036- 0356 June, Post-traumatic stress disorder, chronic F43.12 ; Anxiety F41.9 ; Problems related to release from intermediate Z65.2 ; Sleep apnea, obstructive G47.33 and Primary insomnia F51.01 [place] [id number] [place] [address] 40097- 2254 June, [facility] [id number] [place] [address] 43309- 5958 June, [facility] [address] 89169- 9766 June, [facility] [address] 23440- 8715 June, Chronic pain G89.29 [place] [address] 10473- 2527 June, Chronic pain G89.29 [place] [facility] [address] 03969- 2012 June, Lipoma of left lower extremity D17.24 ; Open wound T14.8 and Swelling of left lower extremity M79.89 [facility] [address] 10834- 7423 June, Post-traumatic stress disorder, unspecified F43.10 ; Major depressive disorder, recurrent, moderate F33.1 and Problems related to release from intermediate Z65.2 [facility] [id number] [place] [address] 60357- 3403 May, Lipoma of left lower extremity D17.24 ; Major depressive disorder, recurrent, moderate F33.1 ; Sleep apnea, obstructive G47.33 ; Hyperlipidemia E78.5 ; Obesity E66.9 ; HTN (hypertension) I10 ; Glaucoma H40.9 ; CAD (coronary artery disease) I25.10 ; Chronic tension headaches G44.229 ; Chronic pain G89.29 ; Anxiety F41.9 ; Nausea R11.0 and Primary insomnia F51.01 [place] [id number] [place] [address] 46858- 9660 May, [facility] [id number] [place] [address] 89225- 3278 May, Chronic pain G89.29 [facility] [id number] [place] [address] 07313- 5111 May, [place] [id number] [place] [address] 64788- 5174 31 Apr, 2016 Post-traumatic stress disorder, unspecified F43.10 ; Major depressive disorder, recurrent, moderate F33.1 and Problems related to release from intermediate Z65.2 [facility] [id number] [place] [address] 75215- 7664 28 Apr, 2016 Primary insomnia F51.01 ; Post-traumatic stress disorder, chronic F43.12 and Problems related to release from intermediate Z65.2 [place] [id number] [place] [address] 52822- 4685 17 Apr, 2016 Post-traumatic stress disorder, unspecified F43.10 ; Major depressive disorder, recurrent, moderate F33.1 and Problems related to release from intermediate Z65.2 [place] [id number] [place] [address] 17664- 1408 Apr, [place] [id number] [place] [address] 44902- 8174 Apr, Sleep apnea, obstructive G47.33 ; Chronic pain G89.29 ; HTN (hypertension) I10 ; Mitral valve prolapse I34.1 ; Shoulder pain, left M25.512 ; Arrhythmia as indication for cardiac pacemaker replacement I49.9 ; Glaucoma H40.9 ; Bilateral headaches R51 ; Environmental allergies Z91.09 ; Primary insomnia F51.01 and Nausea R11.0 [place] [id number] [place] [address] 56213- 8360 Apr, [place] [facility] [id number] [place] [address] 02981- 8156 Apr, [address] 24694- 5893 Apr, Post-traumatic stress disorder, unspecified F43.10 ; Major depressive disorder, recurrent, moderate F33.1 and Problems related to release from intermediate Z65.2 [place] [id number] [place], [place] [id number] Apr, HTN (hypertension) I10 [place] [address] [place] [id number] [place] [phone] Apr, HTN (hypertension) I10 [place] [address] [place] [id number] [place] [address]- [address]990 Mar, Chronic pain G89.29 ; Primary insomnia F51.01 and Problems related to release from intermediate Z65.2 [facility] [id number] [place] [address] 85214- 3636 Mar, Post-traumatic stress disorder, unspecified F43.10 ; Major depressive disorder, recurrent, moderate F33.1 and Problems related to release from intermediate Z65.2 [facility] [id number] [place] [address] 48090- 6210 Feb, Post-traumatic stress disorder, unspecified F43.10 ; Major depressive disorder, recurrent, moderate F33.1 and Problems related to release from intermediate Z65.2 [facility] [id number] [place] [address] 21965- 2257 Feb, Chronic tension headaches G44.229 [facility] [id number] [place] [address] Feb, Sleep apnea, obstructive G47.33 ; Obesity [...] pacemaker replacement I49.9 and Primary insomnia F51.01 [facility] [address] [address] 0[address] 17 Feb, 2016 Post-traumatic stress disorder, unspecified F43.10 and Chronic pain G89.29 [facility] [id number] [address] Feb, [facility] [id number] [id number] Feb, Dental caries K02.9 [facility] [id number] [place] [address] 86054- 0213 Feb, [facility] [id number] [place] [address] 82463- 3372 Feb, Post-traumatic stress disorder, unspecified F43.10 ; Major depressive disorder, recurrent, moderate F33.1 and Problems related to release from intermediate Z65.2 [facility] [id number] [place] [address] 02674- 3078 Jan, Sleep apnea, obstructive G47.33 and Chronic pain G89.29 [facility] [id number] [place] [address] 26915- 8103 Jan, [facility] [id number] [place] [address] 29061- 8685 Jan, Dental examination Z01.20 [facility] [id number] [place] [address] 57638- 5594 Jan, [facility] [id number] [place] [address] 80188- 1478 Jan, [facility] [id number] [place] [address] 54381- 1789 Dec, Post-traumatic stress disorder, unspecified F43.10 ; Major depressive disorder, recurrent, moderate F33.1 and Problems related to release from intermediate Z65.2 [facility] [id number] [place] [address] 99010- 8718 29 Nov, 2016 Encounter for immunization Z23 ; Problems related to release from intermediate Z65.2 ; Sleep apnea, obstructive G47.33 and Post-traumatic stress disorder, chronic F43.12 [facility] [id number] [place] [address] 20720- 8502 Dec, Sleep apnea, obstructive G47.33 ; Hyperlipidemia E78.5 ; Chronic pain G89.29 ; Glaucoma H40.9 ; HTN (hypertension) I10 ; Post-traumatic stress disorder, unspecified F43.10 ; Anxiety F41.9 ; Chronic tension headaches G44.229 ; Mitral valve prolapse I34.1 and CAD (coronary artery disease) I25.10 [facility] [id number] [place] [address] 18519- 7486 Dec, Post-traumatic stress disorder, unspecified F43.10 ; Major depressive disorder, recurrent, moderate F33.1 and Problems related to release from intermediate Z65.2 [facility] [address] 85639- 9022 Nov, Chronic pain G89.29 [facility] [id number] [place] [address] 78216- 7773 Nov, Post-traumatic stress disorder, unspecified F43.10 ; Major depressive disorder, recurrent, moderate F33.1 and Problems related to release from intermediate Z65.2 [facility] [id number] [place] [address] 09319- 3905 Oct, [facility] [id number] [place] [address] 87415- 6732 Oct, [facility] [id number] [place] [address] 47156- 0193 16 Oct, 2015 Post-traumatic stress disorder, unspecified F43.10 ; Major depressive disorder, recurrent, moderate F33.1 and Problems related to release from intermediate Z65.2 [facility] [id number] [place] [address] 58307- 2567 Oct, [facility] [id number] [place] [id number] 2546 Oct, Environmental allergies Z91.09 ; Cough R05 and 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 [facility] [id number] [place] [address] 31698- 6386 Sep, [facility] [id number] [place] [address] 75932- 2189 Sep, Post-traumatic stress disorder, unspecified F43.10 ; Major depressive disorder, recurrent, moderate F33.1 and Problems related to release from intermediate Z65.2 [facility] [id number] [place] [address] 49598- 2516 Sep, Chronic pain G89.29 [facility] [id number] [place] [address] 81695- 9902 Sep, Pain in left shoulder M25.512 ; Pain in right shoulder M25.511 and Other chronic pain G89.29 [facility] [id number] [place] [address] 26048- 3368 Sep, [facility] [id number] [place] [address] 21944- 0816 Sep, [facility] [id number] [place] [address] 71214- 3616 Sep, [facility] [id number] [place] [address] [id number] Aug, Dental examination Z01.20 [facility] [id number] [place] [address] 49370- 1206 Aug, Post-traumatic stress disorder, unspecified F43.10 ; Open- angle glaucoma of both eyes H40.10X0 and Problems related to release from intermediate Z65.2 [facility] [id number] [place] [address] 74514- 4399 Aug, [facility] [id number] [place] [address] 64968- 4518 Aug, Sleep apnea, obstructive G47.33 ; Obesity E66.9 ; Hyperlipidemia E78.5 ; Bilateral headaches R51 ; HTN (hypertension) I10 ; Post- traumatic stress disorder, unspecified F43.10 ; Anxiety F41.9 ; Neuropathy G62.9 ; Glaucoma H40.9 and Chronic pain G89.29 [facility] [id number] [id number] Aug, Encounter for dental examination Z01.20 [facility] [id number] [place] [address] 92402- 6331 08 Aug, 2015 Post-traumatic stress disorder, unspecified F43.10 ; Major depressive disorder, recurrent, moderate F33.1 and Problems related to release from intermediate Z65.2 [facility] [id number] [place] [address] 93014- 0021 Aug, [facility] [id number] [place] [address] 29331- 5048 Jul, [facility] [id number] [place] [address] 32463- 5052 Jul, Post-traumatic stress disorder, unspecified F43.10 and Major depressive disorder, recurrent, moderate F33.1 [facility] [id number] [place] [address] 14290- 8980 Jul, [facility] [id number] [place] [address] 04336- 8067 Jul, [facility] [id number] [place] [address] 22152- 8999 Jul, Chronic pain G89.29 [facility] [id number] [place] [address] 93590- 2161 June, Post-traumatic stress disorder, unspecified F43.10 and Major depressive disorder, recurrent, moderate F33.1 [facility] [id number] [place] [address] 08107- 6362 June, [facility] [id number] [place] [address] 19792- 4289 June, Chronic pain G89.29 [facility] [id number] [place] [address] 89043- 6681 June, Post-traumatic stress disorder, unspecified F43.10 and Major depressive disorder, recurrent, moderate F33.1 [facility] [address] [address]- 3992 May, Post-traumatic stress disorder, unspecified F43.10 and Major depressive disorder, recurrent, moderate F33.1 [facility] [id number] [place] [address] 02535- 6408 May, [facility] [id number] [place] [address] 34326- 8838 May, [facility] [id number] [place] [address] 56292- 6493 May, [facility] [id number] [place] [address] 81700- 2576 Apr, [facility] [id number] [place] [address] 47725- 9842 Apr, Post-traumatic stress disorder, unspecified F43.10 and Sleep apnea, obstructive G47.33 [facility] [id number] [place] [address] 89834- 2475 31 Apr, 2015 [facility] [id number] [place] [address] 26586- 6095 Apr, Shoulder pain, left M25.512 [facility] [id number] [address]- 7847 18 Apr, 2015 Post-traumatic stress disorder, unspecified F43.10 and Major depressive disorder, recurrent, moderate F33.1 [facility] [id number] [address]- 0326 17 Apr, 2015 [facility] [id number] [place] [address] 90069- 3082 Apr, [facility] [id number] [place] [address] 21629- 9520 Apr, [facility] [id number] [place] [address] 32409- 7283 Apr, Left shoulder pain M25.512 [facility] [id number] [place] [address] 83994- 9426 Mar, [facility] [id number] [place] [address] 66438- 2597 Mar, [facility] [id number] [place] [address] 92100- 2489 Mar, [facility] [id number] [place] [address] 14941- 3414 Mar, Sleep apnea, obstructive G47.33 ; Obesity E66.9 ; Chronic pain G89.29 ; Hyperlipidemia E78.5 ; HTN (hypertension) I10 ; Blindness and low vision H54.10 ; Major depressive disorder, recurrent, moderate F33.1 and Anxiety F41.9 [facility] [id number] [place] [address] 51722- 9138 Mar, [facility] [id number] [place] [address] 87397- 6286 Mar, Post-traumatic stress disorder, unspecified F43.10 and Major depressive disorder, recurrent, moderate F33.1 [facility] [id number] [place] [address] 49301- 6681 Mar, [facility] [id number] [place] [address] 77832- 1452 Mar, HTN (hypertension) I10 ; Blindness and low vision H54.10 ; Obesity E66.9 ; Hyperlipidemia E78.5 ; Glaucoma H40.9 ; Chronic pain G89.29 and CAD (coronary artery disease) I25.10 [facility] [id number] [place] [address] 20629- 5681 Feb, [facility] [id number] [place] [address] 00661- 1796 Feb, Post-traumatic stress disorder, unspecified F43.10 ; Obesity E66.9 ; Sleep apnea, obstructive G47.33 and 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 [facility] [id number] [place] [address] 26369- 1559 Feb, Post-traumatic stress disorder, unspecified F43.10 and Major depressive disorder, recurrent, moderate F33.1 [facility] [address] 30051- 6811 Feb, [facility] [address] 08588- 8347 Feb, [facility] [address] 18242- 4308 Feb, HTN (hypertension) I10 ; Post-traumatic stress disorder, unspecified F43.10 ; Blindness and low vision H54.10 ; Obesity E66.9 ; Hyperlipidemia E78.5 ; Chronic pain G89.29 ; Glaucoma H40.9 ; Mitral valve prolapse I34.1 and Bilateral headaches R51 [facility] [id number] [place] [address] 41768- 7146 Feb, [facility] [id number] [place] [address] 97459- 9844 Feb, Post-traumatic stress disorder, unspecified F43.10 and Major depressive disorder, recurrent, moderate F33.1 [facility] [id number] [place] [address] 48670- 3741 Feb, [facility] [address] 71114- 9820 Feb, [facility] [id number] [place] [address] 81106- 7645 Jan, [facility] [address] 25647- 4243 Jan, [facility] [id number] [place] [address] 08201- 4298 Jan, Obesity E66.9 ; HTN (hypertension) I10 ; Blindness and low vision H54.10 ; Major depressive disorder, recurrent, moderate F33.1 ; Glaucoma H40.9 ; Hyperlipidemia E78.5 ; Sleep apnea, obstructive G47.33 ; Chronic pain G89.29 ; Anxiety F41.9 ; Chronic tension headaches G44.229 and Cough R05 [facility] [id number] [place] [address] 97675- 8502 Jan, [address] 529648- 0233 Jan, [address] 318758- 8437 Jan, Post-traumatic stress disorder, unspecified F43.10 ; Obesity E66.9 ; Sleep apnea, obstructive G47.33 and 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 [place] [id number] [place] [address] 59680- 5944 Jan, [facility] [id number] [place] [address]- 1631 Jan, Post-traumatic stress disorder, unspecified F43.10 and Major depressive disorder, recurrent, moderate F33.1 [facility] [id number] [place] [address] 53598- 0573 Dec, [facility] [id number] [place] [address] 19147- 5346 Dec, Sleep apnea, obstructive G47.33 ; Obesity E66.9 ; Hyperlipidemia E78.5 ; Glaucoma H40.9 ; Chronic pain G89.29 ; HTN (hypertension ) I10 ; Blindness and low vision H54.10 ; Anxiety F41.9 and CAD (coronary artery disease) I25.10 [place] [id number] [place] [address]- 9801 Nov, [facility] [id number] [place] [address] 17617- 0961 Nov, [facility] [id number] [place] [address] 66571- 8664 Nov, [facility] [id number] [place] [address] 26319- 6166 Nov, [facility] [address] 96063- 6482 Nov, [facility] [id number] [place] [address] 48432- 3469 Nov, Encounter for immunization Z23 ; Sleep apnea, obstructive G47.33 ; Obesity E66.9 ; Hyperlipidemia E78.5 ; Glaucoma H40.9 ; Chronic pain G89.29 ; Anxiety F41.9 ; Chronic tension headaches G44.229 and HTN (hypertension ) I10 [facility] [id number] [place] [address] 51909- 4874 Nov, [facility] [id number] [place] [address] 38632- 3083 Nov, [facility] [id number] [place] [address] 21825- 1795 Nov, Dizziness R42 [facility] [id number] [place] [address] 46088- 0578 Nov, [facility] [id number] [place] [address] 30110- 5516 Oct, [facility] [id number] [place] [address] 70370- 0722 28 Oct, 2014 [facility] [id number] [place] [address] 36037- 1297 Oct, [facility] [id number] [place] [address] 41355- 9586 Oct, [facility] [address] [place] [address]- 6454 17 Oct, 2014 Dizziness 780.4 ; Essential hypertension 401.9 ; Obesity 278.00 ; Hyperlipidemia 272.4 ; Chronic pain 338.29 ; Glaucoma 365.9 and Anxiety 300.00 [facility] [id number] [place] [address] 70978- 8355 Oct, Essential hypertension 401.9 ; Hyperlipidemia 272.4 ; Glaucoma 365.9 ; Obesity 278.00 ; Chronic pain 338.29 and Allergy to insects V15.06 [facility] [id number] [place] [address] 64280- 1565 Sep, [facility] [address] 552837- 0132 Sep, [facility] [id number] [place] [address] 94642- 3301 Sep, [facility] [id number] [place] [address] 89789- 2849 Sep, [facility] [id number] [place] [address] 99254- 7552 Aug, Essential hypertension 401.9 ; Obesity 278.00 ; Hyperlipidemia 272.4 ; Glaucoma 365.9 ; Lipoma 214.9 ; Mitral valve prolapse 424.0 ; Angina at rest 413.9 ; Lymphedema 457.1 and Chronic pain 338.29 IMMUNIZATIONS No Known Immunizations SOCIAL HISTORY Never Assessed REASON FOR VISIT Refill Request PLAN OF CARE VITAL SIGNS MEDICATIONS Unknown [...]
--- OUTSIDE RECORDS SUMMARY | 2018-02-04 14:19 | XMS REPORT ---
Author Author ALENA ÁLVAREZ [facility] [address] Address [address] [place] [address] Care Team Providers Care Community Director Name Role Phone ALENA ÁLVAREZ Unavailable PROBLEMS Type Condition ICD9-CM Code CFE46-PF Code Onset Dates Condition Status SNOMED Code Problem Hyperlipidemia E78.5 Active 29100143 Problem Arrhythmia as indication for cardiac pacemaker replacement I49.9 Active 84972990 Problem Sleep apnea, obstructive G47.33 Active 58932780 Problem Primary insomnia F51.01 Active 9014459 Problem Chronic pain G89.29 Active 12396315 Problem Morbid (severe) obesity due to excess calories E66.01 Active 323646987 Problem Body mass index (BMI) of 40.0-44.9 in adult Z68.41 Active 757083925 Problem Other male erectile dysfunction N52.8 Active 603025791 Problem Supraventricular tachycardia I47.1 Active 1376456 Problem Sarcoidosis D86.9 Active 61329021 Problem HTN (hypertension) I10 Active 82606786 Problem 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 Active 050400112 Problem Myocarditis, unspecified chronicity, 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 Active 01089673 Problem Migraine without aura and without status migrainosus, not intractable G43.009 Active 549106138 Problem 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 Active 605659521 Problem Problems related to release from custodial Z65.2 Active 132648238346141 Problem Chronic pain syndrome G89.4 Active 964179246 Problem Major depressive disorder, recurrent, moderate F33.1 Active 29227036 Problem 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 Active 86310276 Problem Chronic tension headaches G44.229 Active 395466467 Problem Anxiety F41.9 Active 30565610 Problem Post-traumatic stress disorder, chronic F43.12 Active 656618546 Problem Environmental allergies Z91.09 Active 399980501 Problem Mitral valve prolapse I34.1 Active 931130166 Problem CAD (coronary artery disease) I25.10 Active 02619254 ALLERGIES No Information ENCOUNTERS Encounter Location Date Diagnosis [facility] [id number] [place] [address] 72766- 6348 Nov, [place] [address] 38277- 5458 Oct, [facility] [address] 91858- 6250 Oct, [facility] [address] 64047 -6265 18 Oct, 2017 Insect bite (nonvenomous), left lower leg, initial encounter S80.862A ; Bitten or stung by nonvenomous insect and other nonvenomous arthropods, initial encounter W57.XXXA and BMI 40.0-44.9, adult Z68.41 [place] [address] 32526- 7057 06 Oct, 2017 Left leg pain M79.605 [place] [address] 47688- 3864 04 Oct, 2017 Post-traumatic stress disorder, unspecified F43.10 ; Major depressive disorder, recurrent, moderate F33.1 and Problems related to release from custodial Z65.2 [place] [address] 26419- 1527 Sep, Arrhythmia as indication for cardiac pacemaker replacement I49.9 [place] [address] 14271- 2014 Sep, [place] [address] 13386- 5326 Sep, HTN (hypertension) I10 [place] [address] 55095- 4176 Sep, [place] [id number] [place] [address] 89472- 8993 Sep, Body mass index (BMI) of 40.0-44.9 in adult Z68.41 ; Chronic pain G89.29 and Supraventricular tachycardia I47.1 [facility] [id number] [place] [address] 91407- 8245 Sep, [facility] [id number] [place] [address] 66330- 6232 Sep, Sarcoidosis D86.9 [facility] [address] 49133- 7316 Sep, Sarcoidosis D86.9 [facility] [id number] [place] [address] 69074- 8336 Sep, [facility] [id number] [place] [address] 25961- 1920 Sep, [facility] [id number] [place] [address] 75375- 5587 Sep, [facility] [id number] [place] [address] 08592- 3174 Sep, [facility] [id number] [place] [address] 06271- 3761 Sep, Left leg pain M79.605 [facility] [id number] [place] [address] 39532- 5698 Sep, HTN (hypertension) I10 [facility] [id number] [place] [address] 17943- 9662 Sep, [facility] [id number] [place] [address] 85458- 7235 Sep, Post-traumatic stress disorder, unspecified F43.10 ; Major depressive disorder, recurrent, moderate F33.1 and Problems related to release from custodial Z65.2 [facility] [id number] [place] [address] 98982- 6336 Sep, [facility] [id number] [place] [address] 05034- 7259 Aug, [place] [id number] [place] [address] 57244- 6148 Aug, Sarcoidosis D86.9 [place] [address] 41906- 2937 Aug, Sarcoidosis D86.9 [place] [id number] [place] [address] 52456- 0592 Aug, HTN (hypertension) I10 [place] [address] 49698- 4135 Aug, Post-traumatic stress disorder, unspecified F43.10 ; Major depressive disorder, recurrent, moderate F33.1 and Problems related to release from custodial Z65.2 [place] [address] 34411- 1735 11 Aug, 2017 [place] [address] 14848- 7948 Aug, Left leg pain M79.605 [place] [id number] [place] [address] 40491- 6154 26 Jul, 2017 Post-traumatic stress disorder, chronic F43.12 ; Anxiety F41.9 ; Problems related to release from custodial Z65.2 and BMI 40.0-44.9, adult Z68.41 [place] [id number] [place] [address] 35498- 7824 20 Jul, 2017 HTN (hypertension) I10 ; Body mass index (BMI) of 40.0-44.9 in adult Z68.41 ; Acute swimmer''s ear of both sides H60.333 and Chronic pain G89.29 [place] [address] 43398- 6062 19 Jul, 2017 Glaucoma H40.9 [place] [id number] [place] [address] 93600- 7152 14 Jul, 2017 [place] [address] 09003- 7186 13 Jul, 2017 Sarcoidosis D86.9 [facility] [id number] [place] [address] 77108- 1458 Jul, Left leg pain M79.605 [facility] [id number] [place] [address] 76126- 8688 Jul, Sarcoidosis D86.9 [facility] [id number] [place] [address] 52580- 0359 Jul, Post-traumatic stress disorder, unspecified F43.10 ; Major depressive disorder, recurrent, moderate F33.1 and Problems related to release from custodial Z65.2 [facility] [address] 18607- 7965 June, [facility] [id number] [place] [address] 54429 -8189 June, Sore throat J02.9 and BMI 40.0-44.9, adult Z68.41 [facility] [id number] [place] [address] 43564- 8761 June, [facility] [address] 29246- 2104 June, [facility] [id number] [place] [address] 90325- 9346 June, [facility] [id number] [place] [address] 18645- 4665 June, Left leg pain M79.605 [facility] [id number] [place] [address] 12381- 9935 June, Sarcoidosis D86.9 [facility] [id number] [place] [address] 46233- 4686 June, [facility] [id number] [place] [address] 90266- 1946 June, [facility] [id number] [place] [address] 02972- 9740 June, Left leg pain M79.605 [facility] [id number] [place] [address] 94512- 3873 May, [facility] [id number] [place] [address] 90891- 4745 May, [facility] [id number] [place] [address] 87214- 3082 May, [facility] [id number] [place] [address] 30342- 7562 May, Left leg pain M79.605 [place] [id number] [place] [address] 54824- 2236 May, Post-traumatic stress disorder, unspecified F43.10 ; Major depressive disorder, recurrent, moderate F33.1 and Problems related to release from custodial Z65.2 [place] [id number] [place] [address] 07360- 7079 May, Chronic pain G89.29 ; Anxiety F41.9 ; Chest pain, unspecified type R07.9 and BMI 40.0-44.9, adult Z68.41 [place] [id number] [place] [address] 29037- 3521 Apr, [place] [id number] [place] [address] 98566- 6569 Apr, Left leg pain M79.605 [facility] [address] [place] [address] 68421- 1050 Apr, Post-traumatic stress disorder, unspecified F43.10 ; Problems related to release from custodial Z65.2 ; Anxiety F41.9 and BMI 40.0-44.9 , adult Z68.41 [place] [address] [address]- 5646 Apr, [facility] [id number] [place] [address] 90360- 2591 Apr, Left leg pain M79.605 [place] [id number] [place] [address] 14747- 8178 13 Apr, 2017 Post-traumatic stress disorder, unspecified F43.10 ; Major depressive disorder, recurrent, moderate F33.1 and Problems related to release from custodial Z65.2 [place] [address] 86517- 0034 12 Apr, 2017 [place] [address] 00162- 7176 12 Apr, 2017 Chronic pain G89.29 ; 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 ; Morbid (severe) obesity due to excess calories E66.01 ; Anxiety F41.9 and BMI 40.0-44.9, adult Z68.41 [facility] [place] [id number] [place] [address] 89546 -9249 10 Apr, 2017 Sore throat J02.9 and BMI 40.0-44.9, adult Z68.[address] 38839- 0579 02 Apr, 2017 Left leg pain M79.605 [facility] [address] [id number] 28 Mar, 2017 Dental examination Z01.20 [place] [id number] [place] [address] 25026- 8877 Mar, [facility] [address] 77479 -1852 Mar, Cough R05 ; Viral gastroenteritis A08.4 and BMI 40.0-44.9, adult Z68.[address] 34722- 2337 19 Mar, 2017 Left leg pain M79.605 [place] [address] 79290- 3276 06 Mar, 2017 Post-traumatic stress disorder, unspecified F43.10 ; Major depressive disorder, recurrent, moderate F33.1 and Problems related to release from custodial Z65.2 [place] [id number] [place] [address] 21416- 4503 Feb, Left leg pain M79.605 [facility] [id number] [place] [address] 92721- 7351 Feb, [place] [id number] [place] [address] 12022- 2148 Feb, BMI 40.0-44.9, adult Z68.41 ; Chronic pain syndrome G89.4 ; Migraine without aura and without status migrainosus, not intractable G43.009 ; Mitral valve prolapse I34.1 and 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 [place] [id number] [place] [address] 84074- 2422 Feb, Post-traumatic stress disorder, chronic F43.12 ; Anxiety F41.9 ; Problems related to release from custodial Z65.2 and BMI 40.0-44.9, adult Z68.41 [place] [id number] [place] [address] 04242- 0103 Feb, Post-traumatic stress disorder, unspecified F43.10 ; Major depressive disorder, recurrent, moderate F33.1 and Problems related to release from custodial Z65.2 [place] [address] [place] [address] 91445- 7848 Feb, Left leg pain M79.605 [place] [id number] [place] [address] 93854- 6705 Jan, Post-traumatic stress disorder, unspecified F43.10 ; Major depressive disorder, recurrent, moderate F33.1 and Problems related to release from custodial Z65.2 [place] [id number] [place] [address] 07662- 6773 Jan, [place] [id number] [place] [address] 80566- 4546 Jan, [place] [address] [address]- 1041 Jan, Anxiety F41.9 [place] [id number] [place] [address] 20729- 8835 13 Jan, 2017 Left leg pain M79.605 [place] [address] [address]- 2449 Dec, Left leg pain M79.605 [place] [id number] [place] [address] 22595- 7118 Dec, [place] [address] [place] [address] 30448- 5120 Dec, Post-traumatic stress disorder, unspecified F43.10 ; Major depressive disorder, recurrent, moderate F33.1 and Problems related to release from custodial Z65.2 [place] [id number] [place] [address] 63258- 0757 31 Nov, 2016 Chronic pain G89.29 and Anxiety F41.9 [place] [address] [place] [address] 17812- 3000 24 Nov, 2016 Chronic pain G89.29 and Anxiety F41.9 [place] [address] [place] [address] 09738- 0046 16 Nov, 2016 Post-traumatic stress disorder, unspecified F43.10 ; Major depressive disorder, recurrent, moderate F33.1 and Problems related to release from custodial Z65.2 [place] [address] [address]- 0394 09 Nov, 2016 Other abnormal findings in specimens from other organs, systems and tissues R89.8 ; Other male erectile dysfunction N52.8 ; Body mass index (BMI) of 40.0-44.9 in adult Z68.41 and Morbid (severe) obesity due to excess calories E66.01 [place] [address] [address]- 1047 02 Nov, 2016 Post-traumatic stress disorder, unspecified F43.10 ; Major depressive disorder, recurrent, moderate F33.1 and Problems related to release from custodial Z65.2 [facility] [address] [address] 29 Oct, 2016 Dental examination Z01.20 [facility] [id number] [place] [address] 98422- 4454 28 Oct, 2016 [facility] [id number] [place] [address] 79394- 1545 Oct, Encounter for immunization Z23 [place] [id number] [place] [address] 41340- 3001 Oct, Chronic pain G89.29 ; Anxiety F41.9 ; Arrhythmia as indication for cardiac pacemaker replacement I49.9 and Glaucoma H40.9 [place] [address] [place] [address] 65596- 6578 Oct, Anxiety F41.9 ; Post-traumatic stress disorder, chronic F43.12 and Problems related to release from custodial Z65.2 [facility] [address] [place] [address] 67279- 4971 Oct, Post-traumatic stress disorder, unspecified F43.10 ; Major depressive disorder, recurrent, moderate F33.1 and Problems related to release from custodial Z65.2 [facility] [address] [place] [address] 18330- 8651 Sep, Chronic pain G89.29 and Anxiety F41.9 [facility] [address] [place] [address] 00118- 0029 Sep, Post-traumatic stress disorder, unspecified F43.10 ; Major depressive disorder, recurrent, moderate F33.1 and Problems related to release from custodial Z65.2 [facility] [address] [place] [address] 53912- 9606 Sep, Post-traumatic stress disorder, unspecified F43.10 ; Major depressive disorder, recurrent, moderate F33.1 and Problems related to release from custodial Z65.2 [place] [address] [place] [address] 05733- 0269 Sep, Chronic pain G89.29 [place] [id number] [place] [address] 98433- 4381 Aug, Dental caries, unspecified K02.9 [place] [id number] [place] [address] 64431- 2564 Aug, Sleep apnea, obstructive G47.33 ; Obesity E66.9 ; Chronic pain G89.29 ; HTN (hypertension) I10 ; Major depressive disorder, recurrent, moderate F33.1 ; Anxiety F41.9 ; Chronic tension headaches G44.229 ; Mitral valve prolapse I34.1 ; Arrhythmia as indication for cardiac pacemaker replacement I49.9 ; Dental caries, unspecified K02.9 ; Primary insomnia F51.01 and Hyperlipidemia E78.5 [place] [id number] [place] [address] 96997- 5507 Aug, Post-traumatic stress disorder, unspecified F43.10 ; Major depressive disorder, recurrent, moderate F33.1 and Problems related to release from custodial Z65.2 [place] [id number] [place] [address] 14001- 8482 Aug, Dental examination Z01.20 [facility] [address] [place] [address] [id number] 13 Aug, 2016 Dental examination Z01.20 [place] [id number] [place] [address] 93516- 6139 06 Aug, 2016 Post-traumatic stress disorder, unspecified F43.10 ; Major depressive disorder, recurrent, moderate F33.1 and Problems related to release from custodial Z65.2 [place] [id number] [place] [address] 26104- 9442 05 Aug, 2016 Chronic pain G89.29 and Primary insomnia F51.01 [place] [address] [place] [address] 41379- 4894 Jul, [place] [address], [place] [address]- 0309 Jul, [place] [id number] [place] [address] 32960- 3909 Jul, Nausea R11.0 [place] [id number] [place] [address] 82359- 8753 Jul, Arrhythmia as indication for cardiac pacemaker replacement I49.9 [place] [id number] [place] [address] 45137- 0893 13 Jul, 2016 Post-traumatic stress disorder, unspecified F43.10 ; Major depressive disorder, recurrent, moderate F33.1 and Problems related to release from custodial Z65.2 [place] [id number] [place] [address] 10480- 8004 09 Jul, 2016 Anxiety F41.9 [place] [id number] [place] [address] 17090- 8974 08 Jul, 2016 Chronic pain G89.29 [place] [id number] [place] [address] 53673- 9904 02 Jul, 2016 Sleep apnea, obstructive G47.33 ; Hyperlipidemia E78.5 ; Chronic pain G89.29 ; Blindness and low vision H54.10 ; Major depressive disorder, recurrent, moderate F33.1 ; Anxiety F41.9 ; Mitral valve prolapse I34.1 ; Arrhythmia as indication for cardiac pacemaker replacement I49.9 ; Primary insomnia F51.01 ; Bilateral headaches R51 and Environmental allergies Z91.[address] [place] [address] 91050- 8681 Jul, Post-traumatic stress disorder, unspecified F43.10 ; Major depressive disorder, recurrent, moderate F33.1 and Problems related to release from custodial Z65.2 [address] [place] [address] 37516- 3994 June, Post-traumatic stress disorder, chronic F43.12 ; Anxiety F41.9 ; Problems related to release from custodial Z65.2 ; Sleep apnea, obstructive G47.33 and Primary insomnia F51.01 [place] [address] [place] [address] 19143- 5173 June, [place] [id number] [place] [address] 11514- 6836 June, [place] [id number] [place] [address] 60352- 4028 June, [place] [id number] [place] [address] 95868- 5046 June, Chronic pain G89.29 [place] [id number] [place] [address] 98586- 8125 June, Chronic pain G89.29 [place] [id number] [place] [address] 57866- 0644 June, Lipoma of left lower extremity D17.24 ; Open wound T14.8 and Swelling of left lower extremity M79.89 [place] [id number] [place] [address] 63627- 6196 June, Post-traumatic stress disorder, unspecified F43.10 ; Major depressive disorder, recurrent, moderate F33.1 and Problems related to release from custodial Z65.[address] [place] [address] 37303- 8516 May, Lipoma of left lower extremity D17.24 ; Major depressive disorder, recurrent, moderate F33.1 ; Sleep apnea, obstructive G47.33 ; Hyperlipidemia E78.5 ; Obesity E66.9 ; HTN (hypertension) I10 ; Glaucoma H40.9 ; CAD (coronary artery disease) I25.10 ; Chronic tension headaches G44.229 ; Chronic pain G89.29 ; Anxiety F41.9 ; Nausea R11.0 and Primary insomnia F51.01 [place] [address] [place] [address] 74003- 5715 May, [place] [id number] [place] [address] 55172- 1614 May, Chronic pain G89.29 [place] [address], [place] [address]- 0767 May, [place] [id number] [place] [address] 03824- 4451 Apr, Post-traumatic stress disorder, unspecified F43.10 ; Major depressive disorder, recurrent, moderate F33.1 and Problems related to release from custodial Z65.2 [place] [id number] [place] [address] 05197- 3255 Apr, Primary insomnia F51.01 ; Post-traumatic stress disorder, chronic F43.12 and Problems related to release from custodial Z65.2 [place] [id number] [place] [address] 41857- 4844 17 Apr, 2016 Post-traumatic stress disorder, unspecified F43.10 ; Major depressive disorder, recurrent, moderate F33.1 and Problems related to release from custodial Z65.2 [place] [address] [place] [address] 76998- 8530 Apr, [place] [id number] [place] [address] 18455- 5602 Apr, Sleep apnea, obstructive G47.33 ; Chronic pain G89.29 ; HTN (hypertension) I10 ; Mitral valve prolapse I34.1 ; Shoulder pain, left M25.512 ; Arrhythmia as indication for cardiac pacemaker replacement I49.9 ; Glaucoma H40.9 ; Bilateral headaches R51 ; Environmental allergies Z91.09 ; Primary insomnia F51.01 and Nausea R11.0 [place] [address] [address]- 1117 Apr, [place] [address] [place] [id number] [place] [address] 36107- 8228 Apr, [place] [address] [address]- 2256 Apr, Post-traumatic stress disorder, unspecified F43.10 ; Major depressive disorder, recurrent, moderate F33.1 and Problems related to release from custodial Z65.2 [facility] [address] [place] [address]- 6344 Apr, HTN (hypertension) I10 [facility] [address] [place] [address]- 7403 Apr, HTN (hypertension) I10 [facility] [id number] [place] [address] 07367- 3725 14 Mar, 2016 Chronic pain G89.29 ; Primary insomnia F51.01 and Problems related to release from custodial Z65.2 [place] [id number] [place] [address] 17982- 5146 07 Mar, 2016 Post-traumatic stress disorder, unspecified F43.10 ; Major depressive disorder, recurrent, moderate F33.1 and Problems related to release from custodial Z65.2 [place] [id number] [place] [address] 45508- 4604 Feb, Post-traumatic stress disorder, unspecified F43.10 ; Major depressive disorder, recurrent, moderate F33.1 and Problems related to release from custodial Z65.2 [place] [id number] [place] [address] 99164- 6877 Feb, Chronic tension headaches G44.229 [place] [id number] [place] [address] 06142- 9669 Feb, Sleep apnea, obstructive G47.33 ; Obesity [...] pacemaker replacement I49.9 and Primary insomnia F51.01 [place] [id number] [place] [address] 82336- 1956 Feb, Post-traumatic stress disorder, unspecified F43.10 and Chronic pain G89.29 [facility] [address] [address] Feb, [facility] [address] [id number] Feb, Dental caries K02.9 [facility] [id number] [place] [address] 48122- 9017 Feb, [facility] [id number] [place] [address] 23876- 5113 Feb, Post-traumatic stress disorder, unspecified F43.10 ; Major depressive disorder, recurrent, moderate F33.1 and Problems related to release from custodial Z65.2 [facility] [id number] [place] [address] 45213- 9847 Jan, Sleep apnea, obstructive G47.33 and Chronic pain G89.29 [facility] [id number] [place] [address] 46183- 2101 Jan, [facility] [id number] [place] [address] 38045- 5423 14 Jan, 2016 Dental examination Z01.20 [facility] [id number] [place] [address] 84195- 0504 Jan, [facility] [address] [address] 3[address] Jan, [facility] [id number] [place] [address] 30094- 2299 Dec, Post-traumatic stress disorder, unspecified F43.10 ; Major depressive disorder, recurrent, moderate F33.1 and Problems related to release from custodial Z65.2 [facility] [address] [address] 7[address] 29 Dec, 2015 Encounter for immunization Z23 ; Problems related to release from custodial Z65.2 ; Sleep apnea, obstructive G47.33 and Post-traumatic stress disorder, chronic F43.12 [place] [id number] [place] [address] 90979- 7385 18 Dec, 2015 Sleep apnea, obstructive G47.33 ; Hyperlipidemia E78.5 ; Chronic pain G89.29 ; Glaucoma H40.9 ; HTN (hypertension) I10 ; Post-traumatic stress disorder, unspecified F43.10 ; Anxiety F41.9 ; Chronic tension headaches G44.229 ; Mitral valve prolapse I34.1 and CAD (coronary artery disease) I25.10 [place] [address] 02478- 8549 Dec, Post-traumatic stress disorder, unspecified F43.10 ; Major depressive disorder, recurrent, moderate F33.1 and Problems related to release from custodial Z65.2 [place] [address] 50352- 0380 Nov, Chronic pain G89.[address] 56458- 4326 Nov, Post-traumatic stress disorder, unspecified F43.10 ; Major depressive disorder, recurrent, moderate F33.1 and Problems related to release from custodial Z65.2 [place] [address] 53335- 5922 Oct, [place] [address] 09749- 5094 Oct, [place] [address] 71156- 1346 16 Oct, 2015 Post-traumatic stress disorder, unspecified F43.10 ; Major depressive disorder, recurrent, moderate F33.1 and Problems related to release from custodial Z65.2 [place] [address] 90820- 9974 08 Oct, 2015 [place] [address] 83620- 1788 07 Oct, 2015 Environmental allergies Z91.09 ; Cough R05 and 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 [facility] [address], [place] [address] 7512 Sep, [facility] [id number] [place] [address] 27861- 4895 Sep, Post-traumatic stress disorder, unspecified F43.10 ; Major depressive disorder, recurrent, moderate F33.1 and Problems related to release from custodial Z65.2 [facility] [id number] [place] [address] 59336- 8621 Sep, Chronic pain G89.29 [facility] [id number] [place] [address] 16884- 5972 Sep, Pain in left shoulder M25.512 ; Pain in right shoulder M25.511 and Other chronic pain G89.29 [facility] [id number] [place] [address] 96537- 3484 Sep, [facility] [id number] [place] [address] 67180- 6921 Sep, [facility] [id number] [place] [address] 03274- 8211 Sep, [facility] [id number] [place] [address] [id number] Aug, Dental examination Z01.20 [facility] [id number] [place] [address] 53107- 6014 Aug, Post-traumatic stress disorder, unspecified F43.10 ; Open- angle glaucoma of both eyes H40.10X0 and Problems related to release from custodial Z65.2 [facility] [id number] [place] [address] 69645- 9604 Aug, [facility] [id number] [place] [address] 76237- 8068 Aug, Sleep apnea, obstructive G47.33 ; Obesity E66.9 ; Hyperlipidemia E78.5 ; Bilateral headaches R51 ; HTN (hypertension) I10 ; Post- traumatic stress disorder, unspecified F43.10 ; Anxiety F41.9 ; Neuropathy G62.9 ; Glaucoma H40.9 and Chronic pain G89.29 [facility] [id number] [place] [address] [id number] Aug, Encounter for dental examination Z01.20 [facility] [id number] [place] [address] 34729- 7505 08 Aug, 2015 Post-traumatic stress disorder, unspecified F43.10 ; Major depressive disorder, recurrent, moderate F33.1 and Problems related to release from custodial Z65.2 [facility] [id number] [place] [address] 40996- 1316 Aug, [facility] [id number] [place] [address] 32448- 7848 Jul, [facility] [id number] [place] [address] 66512- 3219 Jul, Post-traumatic stress disorder, unspecified F43.10 and Major depressive disorder, recurrent, moderate F33.1 [facility] [id number] [place] [address] 76267- 7235 Jul, [facility] [id number] [place] [address] 32483- 3471 Jul, [facility] [id number] [place] [address] 83604- 9520 Jul, Chronic pain G89.29 [facility] [id number] [place] [address] 50506- 1272 June, Post-traumatic stress disorder, unspecified F43.10 and Major depressive disorder, recurrent, moderate F33.1 [facility] [id number] [place] [address] 40036- 6678 June, [facility] [id number] [place] [address] 68229- 5625 June, Chronic pain G89.29 [facility] [id number] [place] [address] 96953- 2049 June, Post-traumatic stress disorder, unspecified F43.10 and Major depressive disorder, recurrent, moderate F33.1 [facility] [id number] [place] [address] 39104- 4056 May, Post-traumatic stress disorder, unspecified F43.10 and Major depressive disorder, recurrent, moderate F33.1 [facility] [id number] [place] [address] 59091- 1896 May, [facility] [id number] [place] [address] 36285- 0726 May, [facility] [id number] [place] [address] 94527- 9236 May, [facility] [id number] [place] [address] 78017- 5426 Apr, [facility] [id number] [place] [address] 16086- 2728 Apr, Post-traumatic stress disorder, unspecified F43.10 and Sleep apnea, obstructive G47.33 [facility] [id number] [place] [address] 34700- 5426 Apr, [facility] [id number] [place] [address] 70205- 2599 Apr, Shoulder pain, left M25.512 [facility] [id number] [place] [address] 53778- 8254 18 Apr, 2015 Post-traumatic stress disorder, unspecified F43.10 and Major depressive disorder, recurrent, moderate F33.1 [facility] [id number] [place] [address] 27479- 9126 17 Apr, 2015 [facility] [id number] [place] [address] 92529- 5816 11 Apr, 2015 [facility] [id number] [place] [address] 53580- 6729 08 Apr, 2015 [place] [id number] [place] [address] 05351- 2906 Apr, Left shoulder pain M25.512 [place] [id number] [place] [address] 18177- 3414 Mar, [facility] [facility] [id number] [place] [address] 24641- 0993 Mar, [place] [id number] [place] [address] 68567- 0973 Mar, [facility] [facility] [id number] [place] [address] 99851- 2045 Mar, Sleep apnea, obstructive G47.33 ; Obesity E66.9 ; Chronic pain G89.29 ; Hyperlipidemia E78.5 ; HTN (hypertension) I10 ; Blindness and low vision H54.10 ; Major depressive disorder, recurrent, moderate F33.1 and Anxiety F41.9 [place] [id number] [place] [address] 59706- 2692 Mar, [facility] [id number] [place] [address] 57956- 0693 Mar, Post-traumatic stress disorder, unspecified F43.10 and Major depressive disorder, recurrent, moderate F33.1 [place] [id number] [place] [address] 00407- 2682 Mar, [place] [id number] [place] [address] 19505- 4716 Mar, HTN (hypertension) I10 ; Blindness and low vision H54.10 ; Obesity E66.9 ; Hyperlipidemia E78.5 ; Glaucoma H40.9 ; Chronic pain G89.29 and CAD (coronary artery disease) I25.10 [place] [id number] [place] [address] 11875- 4665 Feb, [facility] [id number] [place] [address] 47669- 4716 Feb, Post-traumatic stress disorder, unspecified F43.10 ; Obesity E66.9 ; Sleep apnea, obstructive G47.33 and 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 [facility] [id number] [place] [address] 53885- 2034 Feb, Post-traumatic stress disorder, unspecified F43.10 and Major depressive disorder, recurrent, moderate F33.1 [place] [address] 72425- 1226 Feb, [place] [address] 41253- 0583 Feb, [place] [address] 81052- 8019 Feb, HTN (hypertension) I10 ; Post-traumatic stress disorder, unspecified F43.10 ; Blindness and low vision H54.10 ; Obesity E66.9 ; Hyperlipidemia E78.5 ; Chronic pain G89.29 ; Glaucoma H40.9 ; Mitral valve prolapse I34.1 and Bilateral headaches R51 [place] [address] 73985- 6888 Feb, [place] [address] 40690- 0976 Feb, Post-traumatic stress disorder, unspecified F43.10 and Major depressive disorder, recurrent, moderate F33.1 [place] [id number] [place] [address] 46563- 0914 Feb, [place] [id number] [place] [address] 29682- 0022 Feb, [facility] [address] 51398- 5496 Jan, [place] [address] 76476- 0038 Jan, [place] [address] 34155- 2086 Jan, Obesity E66.9 ; HTN (hypertension) I10 ; Blindness and low vision H54.10 ; Major depressive disorder, recurrent, moderate F33.1 ; Glaucoma H40.9 ; Hyperlipidemia E78.5 ; Sleep apnea, obstructive G47.33 ; Chronic pain G89.29 ; Anxiety F41.9 ; Chronic tension headaches G44.229 and Cough R05 [place] [address]- [address]12 Jan, [address] 820747- 7953 Jan, [place] [address]- 0955 Jan, Post-traumatic stress disorder, unspecified F43.10 ; Obesity E66.9 ; Sleep apnea, obstructive G47.33 and 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 [place] [address]- 4640 Jan, [address] 95484- 2267 Jan, Post-traumatic stress disorder, unspecified F43.10 and Major depressive disorder, recurrent, moderate F33.1 [place] [id number] [place] [address] 10166- 4444 Dec, [address] 13659- 3095 Dec, Sleep apnea, obstructive G47.33 ; Obesity E66.9 ; Hyperlipidemia E78.5 ; Glaucoma H40.9 ; Chronic pain G89.29 ; HTN (hypertension ) I10 ; Blindness and low vision H54.10 ; Anxiety F41.9 and CAD (coronary artery disease) I25.10 [place] [id number] [place] [address] 06037- 3493 Nov, [place] [id number]- 8508 Nov, [facility] [id number] [place] [address] 83942- 5833 Nov, [facility] [address] 93267- 3927 Nov, [facility] [address] 36851- 1522 Nov, [facility] [address] 76560- 1765 Nov, Encounter for immunization Z23 ; Sleep apnea, obstructive G47.33 ; Obesity E66.9 ; Hyperlipidemia E78.5 ; Glaucoma H40.9 ; Chronic pain G89.29 ; Anxiety F41.9 ; Chronic tension headaches G44.229 and HTN (hypertension ) I10 [facility] [address] 04567- 9196 Nov, [facility] [address] 66113- 8151 Nov, [facility] [address] 05136- 4556 Nov, Dizziness R42 [facility] [address] 17282- 6091 Nov, [facility] [id number] [place] [address] 29428- 8722 29 Oct, 2014 [facility] [address] 85357- 4711 28 Oct, 2014 [facility] [address] 54004- 6366 Oct, [facility] [address] 95444- 5907 Oct, [facility] [id number] [place] [address] 92583- 9952 17 Oct, 2014 Dizziness 780.4 ; Essential hypertension 401.9 ; Obesity 278.00 ; Hyperlipidemia 272.4 ; Chronic pain 338.29 ; Glaucoma 365.9 and Anxiety 300.00 [facility] [id number] [place] [address] 39968- 7757 Oct, Essential hypertension 401.9 ; Hyperlipidemia 272.4 ; Glaucoma 365.9 ; Obesity 278.00 ; Chronic pain 338.29 and Allergy to insects V15.06 [facility] [id number] [place] [address] 76568- 2781 Sep, [facility] [id number] [place] [address] 20165- 6166 Sep, [facility] [id number] [place] [address] 25708- 6236 Sep, [facility] [id number] [place] [address] 86416- 5685 Sep, [facility] [id number] [place] [address] 25561- 2267 Aug, Essential hypertension 401.9 ; Obesity 278.00 ; Hyperlipidemia 272.4 ; Glaucoma 365.9 ; Lipoma 214.9 ; Mitral valve prolapse 424.0 ; Angina at rest 413.9 ; Lymphedema 457.1 and Chronic pain 338.29 IMMUNIZATIONS No Known Immunizations SOCIAL HISTORY Never Assessed REASON FOR VISIT BP Check -- duran zaidi PLAN OF CARE VITAL SIGNS Height 67 in 2017-09-27 Blood pressure systolic 138 mmHg 2017-09-27 Blood pressure diastolic 86 mmHg 2017-09-27 MEDICATIONS Unknown Medications RESULTS No Results PROCEDURES [...]
--- OUTSIDE RECORDS SUMMARY | 2018-02-04 14:20 | XMS REPORT ---
Author Author ALENA ÁLVAREZ [facility] Address [address] [place] [address] Care Team Providers Care Financial Reporting Accountant Name Role Phone ALENA ÁLVAREZ Unavailable PROBLEMS Type Condition ICD9-CM Code XOY45-ND Code Onset Dates Condition Status SNOMED Code Problem Hyperlipidemia E78.5 Active 90758433 Problem Arrhythmia as indication for cardiac pacemaker replacement I49.9 Active 68872488 Problem Sleep apnea, obstructive G47.33 Active 95549373 Problem Primary insomnia F51.01 Active 1339420 Problem Chronic pain G89.29 Active 30422605 Problem Morbid (severe) obesity due to excess calories E66.01 Active 537562911 Problem Body mass index (BMI) of 40.0-44.9 in adult Z68.41 Active 195779539 Problem Other male erectile dysfunction N52.8 Active 794644373 Problem Supraventricular tachycardia I47.1 Active 6670582 Problem Sarcoidosis D86.9 Active 28858021 Problem HTN (hypertension) I10 Active 13708460 Problem Blindness and low vision H54.10 Active 461972535 Problem Myocarditis, unspecified chronicity, 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 Active 34958718 Problem Migraine without aura and without status migrainosus, not intractable G43.009 Active 246557825 Problem 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 Active 210133019 Problem Problems related to release from alf Z65.2 Active 876603246441486 Problem Chronic pain syndrome G89.4 Active 576517031 Problem Major depressive disorder, recurrent, moderate F33.1 Active 98597784 Problem 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 Active 93569101 Problem Chronic tension headaches G44.229 Active 634338089 Problem Anxiety F41.9 Active 54078651 Problem Post-traumatic stress disorder, chronic F43.12 Active 018854465 Problem Environmental allergies Z91.09 Active 251667106 Problem Mitral valve prolapse I34.1 Active 309566341 Problem CAD (coronary artery disease) I25.10 Active 77782735 ALLERGIES No Information ENCOUNTERS Encounter Location Date Diagnosis [facility] [id number] [place] [address] 23359- 9710 Nov, [place] [address] 22961- 0612 Oct, [facility] [address] 43429- 1438 Oct, [facility] [address] 86232 -2065 18 Oct, 2017 Insect bite (nonvenomous), left lower leg, initial encounter S80.862A ; Bitten or stung by nonvenomous insect and other nonvenomous arthropods, initial encounter W57.XXXA and BMI 40.0-44.9, adult Z68.41 [place] [address] 66221- 2571 06 Oct, 2017 Left leg pain M79.605 [place] [address] 48309- 0584 04 Oct, 2017 Post-traumatic stress disorder, unspecified F43.10 ; Major depressive disorder, recurrent, moderate F33.1 and Problems related to release from alf Z65.2 [place] [address] 75223- 0991 Sep, Arrhythmia as indication for cardiac pacemaker replacement I49.9 [place] [address] 30180- 2047 Sep, [place] [address] 81177- 2808 Sep, HTN (hypertension) I10 [place] [address] 32320- 1875 Sep, [place] [id number] [place] [address] 88931- 5938 Sep, Body mass index (BMI) of 40.0-44.9 in adult Z68.41 ; Chronic pain G89.29 and Supraventricular tachycardia I47.1 [facility] [id number] [place] [address] 58187- 8166 Sep, [facility] [id number] [place] [address] 42101- 7572 Sep, Sarcoidosis D86.9 [facility] [address] 66443- 7796 Sep, Sarcoidosis D86.9 [facility] [id number] [place] [address] 62801- 0119 Sep, [facility] [id number] [place] [address] 73079- 5247 Sep, [facility] [id number] [place] [address] 13071- 6291 Sep, [facility] [id number] [place] [address] 78346- 8554 Sep, [facility] [id number] [place] [address] 76031- 6026 Sep, Left leg pain M79.605 [facility] [id number] [place] [address] 98272- 1945 Sep, HTN (hypertension) I10 [facility] [id number] [place] [address] 09686- 7790 Sep, [facility] [id number] [place] [address] 68463- 9910 Sep, Post-traumatic stress disorder, unspecified F43.10 ; Major depressive disorder, recurrent, moderate F33.1 and Problems related to release from alf Z65.2 [facility] [id number] [place] [address] 65062- 6442 Sep, [facility] [id number] [place] [address] 05010- 9757 Aug, [place] [id number] [place] [address] 06198- 1699 Aug, Sarcoidosis D86.9 [place] [address] 70021- 7653 Aug, Sarcoidosis D86.9 [place] [id number] [place] [address] 49872- 8471 Aug, HTN (hypertension) I10 [place] [address] 14731- 1109 Aug, Post-traumatic stress disorder, unspecified F43.10 ; Major depressive disorder, recurrent, moderate F33.1 and Problems related to release from alf Z65.2 [place] [address] 20188- 7970 11 Aug, 2017 [place] [address] 24882- 1253 Aug, Left leg pain M79.605 [place] [id number] [place] [address] 26665- 7390 26 Jul, 2017 Post-traumatic stress disorder, chronic F43.12 ; Anxiety F41.9 ; Problems related to release from alf Z65.2 and BMI 40.0-44.9, adult Z68.41 [place] [id number] [place] [address] 53440- 4789 20 Jul, 2017 HTN (hypertension) I10 ; Body mass index (BMI) of 40.0-44.9 in adult Z68.41 ; Acute swimmer''s ear of both sides H60.333 and Chronic pain G89.29 [place] [address] 36906- 1668 19 Jul, 2017 Glaucoma H40.9 [place] [id number] [place] [address] 96293- 0962 14 Jul, 2017 [place] [address] 97224- 7345 13 Jul, 2017 Sarcoidosis D86.9 [facility] [id number] [place] [address] 83751- 9304 Jul, Left leg pain M79.605 [facility] [id number] [place] [address] 93399- 8636 Jul, Sarcoidosis D86.9 [facility] [id number] [place] [address] 75504- 4111 Jul, Post-traumatic stress disorder, unspecified F43.10 ; Major depressive disorder, recurrent, moderate F33.1 and Problems related to release from alf Z65.2 [facility] [address] 54900- 3314 June, [facility] [id number] [place] [address] 75196 -4812 June, Sore throat J02.9 and BMI 40.0-44.9, adult Z68.41 [facility] [id number] [place] [address] 12263- 7320 June, [facility] [address] 66892- 6641 June, [facility] [id number] [place] [address] 50756- 0842 June, [facility] [id number] [place] [address] 81250- 4164 June, Left leg pain M79.605 [facility] [id number] [place] [address] 61310- 6454 June, Sarcoidosis D86.9 [facility] [id number] [place] [address] 97176- 1870 June, [facility] [id number] [place] [address] 47991- 4610 June, [facility] [id number] [place] [address] 26583- 7223 June, Left leg pain M79.605 [facility] [id number] [place] [address] 12297- 3156 May, [facility] [id number] [place] [address] 26453- 5106 May, [facility] [id number] [place] [address] 83499- 0191 May, [facility] [id number] [place] [address] 36142- 6400 May, Left leg pain M79.605 [place] [id number] [place] [address] 59101- 7582 May, Post-traumatic stress disorder, unspecified F43.10 ; Major depressive disorder, recurrent, moderate F33.1 and Problems related to release from alf Z65.2 [place] [id number] [place] [address] 58701- 3863 May, Chronic pain G89.29 ; Anxiety F41.9 ; Chest pain, unspecified type R07.9 and BMI 40.0-44.9, adult Z68.41 [place] [id number] [place] [address] 17346- 9819 Apr, [place] [id number] [place] [address] 12120- 2500 Apr, Left leg pain M79.605 [facility] [id number] [place] [address] 61105- 0253 Apr, Post-traumatic stress disorder, unspecified F43.10 ; Problems related to release from alf Z65.2 ; Anxiety F41.9 and BMI 40.0-44.9 , adult Z68.41 [place] [address] [address]- 6192 Apr, [facility] [id number] [place] [address] 29631- 8906 Apr, Left leg pain M79.605 [place] [id number] [place] [address] 53807- 8964 13 Apr, 2017 Post-traumatic stress disorder, unspecified F43.10 ; Major depressive disorder, recurrent, moderate F33.1 and Problems related to release from alf Z65.2 [place] [address] 26182- 0631 12 Apr, 2017 [place] [address] 94375- 1571 12 Apr, 2017 Chronic pain G89.29 ; 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 ; Morbid (severe) obesity due to excess calories E66.01 ; Anxiety F41.9 and BMI 40.0-44.9, adult Z68.41 [facility] [place] [id number] [place] [address] 76293 -5056 10 Apr, 2017 Sore throat J02.9 and BMI 40.0-44.9, adult Z68.[address] 21700- 1299 02 Apr, 2017 Left leg pain M79.605 [facility] [address] [id number] 28 Mar, 2017 Dental examination Z01.20 [place] [id number] [place] [address] 85576- 8605 Mar, [facility] [address] 23332 -0257 Mar, Cough R05 ; Viral gastroenteritis A08.4 and BMI 40.0-44.9, adult Z68.[address] 81341- 3863 19 Mar, 2017 Left leg pain M79.605 [place] [address] 14305- 5987 06 Mar, 2017 Post-traumatic stress disorder, unspecified F43.10 ; Major depressive disorder, recurrent, moderate F33.1 and Problems related to release from alf Z65.2 [place] [id number] [place] [address] 16078- 4589 Feb, Left leg pain M79.605 [facility] [id number] [place] [address] 76750- 9646 Feb, [place] [id number] [place] [address] 97405- 5130 Feb, BMI 40.0-44.9, adult Z68.41 ; Chronic pain syndrome G89.4 ; Migraine without aura and without status migrainosus, not intractable G43.009 ; Mitral valve prolapse I34.1 and 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 [place] [id number] [place] [address] 77824- 0698 Feb, Post-traumatic stress disorder, chronic F43.12 ; Anxiety F41.9 ; Problems related to release from alf Z65.2 and BMI 40.0-44.9, adult Z68.41 [place] [id number] [place] [address] 85902- 5494 Feb, Post-traumatic stress disorder, unspecified F43.10 ; Major depressive disorder, recurrent, moderate F33.1 and Problems related to release from alf Z65.2 [place] [address] [place] [address] 26700- 4652 Feb, Left leg pain M79.605 [place] [id number] [place] [address] 48804- 6888 Jan, Post-traumatic stress disorder, unspecified F43.10 ; Major depressive disorder, recurrent, moderate F33.1 and Problems related to release from alf Z65.2 [place] [id number] [place] [address] 13187- 6193 Jan, [place] [id number] [place] [address] 82925- 5052 Jan, [place] [address] [address]- 6537 Jan, Anxiety F41.9 [place] [id number] [place] [address] 69228- 4278 13 Jan, 2017 Left leg pain M79.605 [place] [address] [address]- 3533 Dec, Left leg pain M79.605 [place] [id number] [place] [address] 62666- 6582 Dec, [place] [id number] [place] [address] 64592- 4728 Dec, Post-traumatic stress disorder, unspecified F43.10 ; Major depressive disorder, recurrent, moderate F33.1 and Problems related to release from alf Z65.2 [place] [id number] [place] [address] 13686- 2881 31 Nov, 2016 Chronic pain G89.29 and Anxiety F41.9 [place] [id number] [place] [address] 88709- 7669 24 Nov, 2016 Chronic pain G89.29 and Anxiety F41.9 [place] [address] [place] [address] 43191- 3979 16 Nov, 2016 Post-traumatic stress disorder, unspecified F43.10 ; Major depressive disorder, recurrent, moderate F33.1 and Problems related to release from alf Z65.2 [place] [address] [address]- 2234 09 Nov, 2016 Other abnormal findings in specimens from other organs, systems and tissues R89.8 ; Other male erectile dysfunction N52.8 ; Body mass index (BMI) of 40.0-44.9 in adult Z68.41 and Morbid (severe) obesity due to excess calories E66.01 [place] [address] [address]- 7818 02 Nov, 2016 Post-traumatic stress disorder, unspecified F43.10 ; Major depressive disorder, recurrent, moderate F33.1 and Problems related to release from alf Z65.2 [facility] [address] [id number] 29 Oct, 2016 Dental examination Z01.20 [facility] [address] [place] [address] 60849- 2426 28 Oct, 2016 [facility] [id number] [place] [address] 53099- 4833 Oct, Encounter for immunization Z23 [place] [id number] [place] [address] 76006- 7553 Oct, Chronic pain G89.29 ; Anxiety F41.9 ; Arrhythmia as indication for cardiac pacemaker replacement I49.9 and Glaucoma H40.9 [place] [address] [place] [address] 07531- 2585 Oct, Anxiety F41.9 ; Post-traumatic stress disorder, chronic F43.12 and Problems related to release from alf Z65.2 [facility] [address] [place] [address] 17446- 5844 Oct, Post-traumatic stress disorder, unspecified F43.10 ; Major depressive disorder, recurrent, moderate F33.1 and Problems related to release from alf Z65.2 [facility] [address] [place] [address] 06592- 4698 Sep, Chronic pain G89.29 and Anxiety F41.9 [facility] [address] [place] [address] 38701- 3135 Sep, Post-traumatic stress disorder, unspecified F43.10 ; Major depressive disorder, recurrent, moderate F33.1 and Problems related to release from alf Z65.2 [facility] [address] [place] [address] 17398- 8196 Sep, Post-traumatic stress disorder, unspecified F43.10 ; Major depressive disorder, recurrent, moderate F33.1 and Problems related to release from alf Z65.2 [place] [address] [place] [address] 23414- 7806 Sep, Chronic pain G89.29 [place] [id number] [place] [address] 51594- 0392 Aug, Dental caries, unspecified K02.9 [place] [id number] [place] [address] 67765- 4692 Aug, Sleep apnea, obstructive G47.33 ; Obesity E66.9 ; Chronic pain G89.29 ; HTN (hypertension) I10 ; Major depressive disorder, recurrent, moderate F33.1 ; Anxiety F41.9 ; Chronic tension headaches G44.229 ; Mitral valve prolapse I34.1 ; Arrhythmia as indication for cardiac pacemaker replacement I49.9 ; Dental caries, unspecified K02.9 ; Primary insomnia F51.01 and Hyperlipidemia E78.5 [place] [id number] [place] [address] 77150- 8795 Aug, Post-traumatic stress disorder, unspecified F43.10 ; Major depressive disorder, recurrent, moderate F33.1 and Problems related to release from alf Z65.2 [place] [id number] [place] [address] 08090- 7507 Aug, Dental examination Z01.20 [facility] [address] [place] [address] [id number] 13 Aug, 2016 Dental examination Z01.20 [place] [id number] [place] [address] 52924- 5711 06 Aug, 2016 Post-traumatic stress disorder, unspecified F43.10 ; Major depressive disorder, recurrent, moderate F33.1 and Problems related to release from alf Z65.2 [place] [id number] [place] [address] 43828- 3268 05 Aug, 2016 Chronic pain G89.29 and Primary insomnia F51.01 [place] [address] [place] [address] 14734- 5563 Jul, [place] [address] [address]- 6307 Jul, [place] [id number] [place] [address] 28885- 7511 Jul, Nausea R11.0 [place] [id number] [place] [address] 48055- 8978 Jul, Arrhythmia as indication for cardiac pacemaker replacement I49.9 [place] [id number] [place] [address] 36411- 1346 13 Jul, 2016 Post-traumatic stress disorder, unspecified F43.10 ; Major depressive disorder, recurrent, moderate F33.1 and Problems related to release from alf Z65.2 [place] [id number] [place] [address] 31404- 7486 09 Jul, 2016 Anxiety F41.9 [place] [id number] [place] [address] 95804- 7845 08 Jul, 2016 Chronic pain G89.29 [place] [id number] [place] [address] 02550- 9786 02 Jul, 2016 Sleep apnea, obstructive G47.33 ; Hyperlipidemia E78.5 ; Chronic pain G89.29 ; Blindness and low vision H54.10 ; Major depressive disorder, recurrent, moderate F33.1 ; Anxiety F41.9 ; Mitral valve prolapse I34.1 ; Arrhythmia as indication for cardiac pacemaker replacement I49.9 ; Primary insomnia F51.01 ; Bilateral headaches R51 and Environmental allergies Z91.09 [address] [place] [address] 74876- 8000 Jul, Post-traumatic stress disorder, unspecified F43.10 ; Major depressive disorder, recurrent, moderate F33.1 and Problems related to release from alf Z65.[address] [place] [address] 56807- 1874 June, Post-traumatic stress disorder, chronic F43.12 ; Anxiety F41.9 ; Problems related to release from alf Z65.2 ; Sleep apnea, obstructive G47.33 and Primary insomnia F51.01 [place] [address] [place] [address] 41450- 7256 June, [place] [id number] [place] [address] 31242- 4753 June, [place] [id number] [place] [address] 16202- 9391 June, [place] [id number] [place] [address] 88313- 6053 June, Chronic pain G89.29 [place] [id number] [place] [address] 17065- 0170 June, Chronic pain G89.29 [place] [id number] [place] [address] 39304- 5748 June, Lipoma of left lower extremity D17.24 ; Open wound T14.8 and Swelling of left lower extremity M79.89 [place] [id number] [place] [address] 43161- 5444 June, Post-traumatic stress disorder, unspecified F43.10 ; Major depressive disorder, recurrent, moderate F33.1 and Problems related to release from alf Z65.[address] [place] [address] 97955- 8016 May, Lipoma of left lower extremity D17.24 ; Major depressive disorder, recurrent, moderate F33.1 ; Sleep apnea, obstructive G47.33 ; Hyperlipidemia E78.5 ; Obesity E66.9 ; HTN (hypertension) I10 ; Glaucoma H40.9 ; CAD (coronary artery disease) I25.10 ; Chronic tension headaches G44.229 ; Chronic pain G89.29 ; Anxiety F41.9 ; Nausea R11.0 and Primary insomnia F51.01 [place] [address] [place] [address] 78199- 3930 May, [place] [id number] [place] [address] 36666- 8013 May, Chronic pain G89.29 [place] [address], [place] [address]- 1672 May, [place] [id number] [place] [address] 55023- 7993 Apr, Post-traumatic stress disorder, unspecified F43.10 ; Major depressive disorder, recurrent, moderate F33.1 and Problems related to release from alf Z65.2 [place] [address] [id number] [place] [address] 87962- 6148 Apr, Primary insomnia F51.01 ; Post-traumatic stress disorder, chronic F43.12 and Problems related to release from alf Z65.2 [place] [id number] [place] [address] 87170- 1446 17 Apr, 2016 Post-traumatic stress disorder, unspecified F43.10 ; Major depressive disorder, recurrent, moderate F33.1 and Problems related to release from alf Z65.2 [place] [address] [place] [address] 86452- 7584 Apr, [place] [id number] [place] [address] 54540- 1610 Apr, Sleep apnea, obstructive G47.33 ; Chronic pain G89.29 ; HTN (hypertension) I10 ; Mitral valve prolapse I34.1 ; Shoulder pain, left M25.512 ; Arrhythmia as indication for cardiac pacemaker replacement I49.9 ; Glaucoma H40.9 ; Bilateral headaches R51 ; Environmental allergies Z91.09 ; Primary insomnia F51.01 and Nausea R11.0 [place] [id number] [address] Apr, [place] [address] [place] [id number] [place] [phone]- [phone] Apr, [place] [id number] [address] Apr, Post-traumatic stress disorder, unspecified F43.10 ; Major depressive disorder, recurrent, moderate F33.1 and Problems related to release from alf Z65.2 [facility] [id number] [address] Apr, HTN (hypertension) I10 [facility] [id number] [place] [id number] Apr, HTN (hypertension) I10 [facility] [address] [place] [id number] [place] [address]- [address] 14 Mar, 2016 Chronic pain G89.29 ; Primary insomnia F51.01 and Problems related to release from alf Z65.2 [place] [address] [place] [id number] [place] [phone]- [phone] 07 Mar, 2016 Post-traumatic stress disorder, unspecified F43.10 ; Major depressive disorder, recurrent, moderate F33.1 and Problems related to release from alf Z65.2 [place] [id number] [place] [address] 72614- 1877 Feb, Post-traumatic stress disorder, unspecified F43.10 ; Major depressive disorder, recurrent, moderate F33.1 and Problems related to release from alf Z65.2 [place] [id number] [place] [address] 71415- 3402 Feb, Chronic tension headaches G44.229 [place] [id number] [place] [address] 41333- 1186 Feb, Sleep apnea, obstructive G47.33 ; Obesity E66.9 ; Hyperlipidemia E78.5 ; Glaucoma H40.9 ; Chronic pain G89.29 ; HTN (hypertension ) I10 ; Blindness and low vision H54.10 ; 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 ; Chronic tension headaches G44.229 ; Cough R05 ; CAD (coronary artery disease) I25.10 ; Problems related to release from alf Z65.2 ; Arrhythmia as indication for cardiac pacemaker replacement I49.9 and Primary insomnia F51.01 [place] [id number] [place] [address] 36523- 7377 Feb, Post-traumatic stress disorder, unspecified F43.10 and Chronic pain G89.29 [facility] [address] [address] Feb, [facility] [id number] [id number] Feb, Dental caries K02.9 [facility] [id number] [place] [address] 14695- 8689 Feb, [facility] [id number] [place] [address] 73824- 4626 Feb, Post-traumatic stress disorder, unspecified F43.10 ; Major depressive disorder, recurrent, moderate F33.1 and Problems related to release from alf Z65.2 [facility] [id number] [place] [address] 12867- 5104 Jan, Sleep apnea, obstructive G47.33 and Chronic pain G89.29 [facility] [id number] [place] [address] 95076- 5990 Jan, [facility] [id number] [place] [address] 34810- 3482 14 Jan, 2016 Dental examination Z01.20 [facility] [id number] [place] [address] 01612- 2327 Jan, [facility] [address], [place] [address] 5097 Jan, [facility] [id number] [place] [address] 15943- 6335 Dec, Post-traumatic stress disorder, unspecified F43.10 ; Major depressive disorder, recurrent, moderate F33.1 and Problems related to release from alf Z65.2 [facility] [address], [place] [address] 56[address] 29 Dec, 2015 Encounter for immunization Z23 ; Problems related to release from alf Z65.2 ; Sleep apnea, obstructive G47.33 and Post-traumatic stress disorder, chronic F43.12 [place] [id number] [place] [address] 27407- 7285 18 Dec, 2015 Sleep apnea, obstructive G47.33 ; Hyperlipidemia E78.5 ; Chronic pain G89.29 ; Glaucoma H40.9 ; HTN (hypertension) I10 ; Post-traumatic stress disorder, unspecified F43.10 ; Anxiety F41.9 ; Chronic tension headaches G44.229 ; Mitral valve prolapse I34.1 and CAD (coronary artery disease) I25.10 [place] [address] 89548- 5224 Dec, Post-traumatic stress disorder, unspecified F43.10 ; Major depressive disorder, recurrent, moderate F33.1 and Problems related to release from alf Z65.2 [place] [address] 03985- 0501 Nov, Chronic pain G89.[address] 53486- 0206 Nov, Post-traumatic stress disorder, unspecified F43.10 ; Major depressive disorder, recurrent, moderate F33.1 and Problems related to release from alf Z65.2 [place] [address] 22721- 3326 Oct, [facility] [address] 93593- 5002 Oct, [place] [address] 46201- 6234 16 Oct, 2015 Post-traumatic stress disorder, unspecified F43.10 ; Major depressive disorder, recurrent, moderate F33.1 and Problems related to release from alf Z65.2 [place] [address] 72369- 2036 08 Oct, 2015 [place] [address] 83461- 6488 07 Oct, 2015 Environmental allergies Z91.09 ; Cough R05 and 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 [facility] [address], [place] [address] 8133 Sep, [facility] [id number] [place] [address] 85539- 1650 Sep, Post-traumatic stress disorder, unspecified F43.10 ; Major depressive disorder, recurrent, moderate F33.1 and Problems related to release from alf Z65.2 [facility] [id number] [place] [address] 85615- 4539 Sep, Chronic pain G89.29 [facility] [id number] [place] [address] 08023- 2965 Sep, Pain in left shoulder M25.512 ; Pain in right shoulder M25.511 and Other chronic pain G89.29 [facility] [id number] [place] [address] 68932- 3565 Sep, [facility] [id number] [place] [address] 29414- 0264 Sep, [facility] [id number] [place] [address] 93158- 1490 Sep, [facility] [id number] [place] [address] [id number] Aug, Dental examination Z01.20 [facility] [id number] [place] [address] 24189- 5942 Aug, Post-traumatic stress disorder, unspecified F43.10 ; Open- angle glaucoma of both eyes H40.10X0 and Problems related to release from alf Z65.2 [facility] [id number] [place] [address] 76706- 5842 Aug, [facility] [id number] [place] [address] 80559- 0054 Aug, Sleep apnea, obstructive G47.33 ; Obesity E66.9 ; Hyperlipidemia E78.5 ; Bilateral headaches R51 ; HTN (hypertension) I10 ; Post- traumatic stress disorder, unspecified F43.10 ; Anxiety F41.9 ; Neuropathy G62.9 ; Glaucoma H40.9 and Chronic pain G89.29 [facility] [id number] [place] [address] [id number] Aug, Encounter for dental examination Z01.20 [facility] [id number] [place] [address] 81583- 9319 08 Aug, 2015 Post-traumatic stress disorder, unspecified F43.10 ; Major depressive disorder, recurrent, moderate F33.1 and Problems related to release from alf Z65.2 [facility] [id number] [place] [address] 15425- 4506 Aug, [facility] [id number] [place] [address] 11956- 1215 Jul, [facility] [id number] [place] [address] 47683- 9097 Jul, Post-traumatic stress disorder, unspecified F43.10 and Major depressive disorder, recurrent, moderate F33.1 [facility] [id number] [place] [address] 59789- 9433 Jul, [facility] [id number] [place] [address] 65927- 4783 Jul, [facility] [id number] [place] [address] 82786- 5742 Jul, Chronic pain G89.29 [facility] [id number] [place] [address] 44195- 0361 June, Post-traumatic stress disorder, unspecified F43.10 and Major depressive disorder, recurrent, moderate F33.1 [facility] [id number] [place] [address] 51932- 1774 June, [facility] [id number] [place] [address] 21864- 1028 June, Chronic pain G89.29 [facility] [id number] [place] [address] 89110- 2619 June, Post-traumatic stress disorder, unspecified F43.10 and Major depressive disorder, recurrent, moderate F33.1 [facility] [id number] [place] [address] 86793- 8905 May, Post-traumatic stress disorder, unspecified F43.10 and Major depressive disorder, recurrent, moderate F33.1 [facility] [id number] [place] [address] 63957- 6408 May, [facility] [id number] [place] [address] 34369- 0604 May, [facility] [id number] [place] [address] 41853- 3041 May, [facility] [id number] [place] [address] 35662- 0145 Apr, [facility] [id number] [place] [address] 67845- 1361 Apr, Post-traumatic stress disorder, unspecified F43.10 and Sleep apnea, obstructive G47.33 [facility] [id number] [place] [address] 06679- 5662 Apr, [facility] [id number] [place] [address] 85253- 7782 Apr, Shoulder pain, left M25.512 [facility] [id number] [place] [address] 70610- 0143 18 Apr, 2015 Post-traumatic stress disorder, unspecified F43.10 and Major depressive disorder, recurrent, moderate F33.1 [facility] [id number] [place] [address] 54610- 1557 17 Apr, 2015 [facility] [id number] [place] [address] 88006- 3491 11 Apr, 2015 [facility] [id number] [place] [address] 72614- 7376 08 Apr, 2015 [place] [id number] [place] [address] 70937- 6159 Apr, Left shoulder pain M25.512 [place] [id number] [place] [address] 58268- 9914 Mar, [facility] [id number] [place] [address] 03787- 1137 Mar, [facility] [id number] [place] [address] 81282- 2418 Mar, [facility] [id number] [place] [address] 22822- 8105 Mar, Sleep apnea, obstructive G47.33 ; Obesity E66.9 ; Chronic pain G89.29 ; Hyperlipidemia E78.5 ; HTN (hypertension) I10 ; Blindness and low vision H54.10 ; Major depressive disorder, recurrent, moderate F33.1 and Anxiety F41.9 [place] [id number] [place] [address] 84841- 8181 Mar, [place] [id number] [place] [address] 48365- 0439 Mar, Post-traumatic stress disorder, unspecified F43.10 and Major depressive disorder, recurrent, moderate F33.1 [place] [id number] [place] [address] 93307- 8679 Mar, [facility] [id number] [place] [address] 67798- 8487 Mar, HTN (hypertension) I10 ; Blindness and low vision H54.10 ; Obesity E66.9 ; Hyperlipidemia E78.5 ; Glaucoma H40.9 ; Chronic pain G89.29 and CAD (coronary artery disease) I25.10 [place] [id number] [place] [address] 56264- 1010 Feb, [facility] [place] [id number] [place] [address] 67846- 2672 Feb, Post-traumatic stress disorder, unspecified F43.10 ; Obesity E66.9 ; Sleep apnea, obstructive G47.33 and 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 [place] [id number] [place] [address] 22483- 6898 Feb, Post-traumatic stress disorder, unspecified F43.10 and Major depressive disorder, recurrent, moderate F33.1 [place] [address] 27586- 7609 Feb, [place] [address] 64777- 8893 Feb, [place] [address] 32683- 5638 Feb, HTN (hypertension) I10 ; Post-traumatic stress disorder, unspecified F43.10 ; Blindness and low vision H54.10 ; Obesity E66.9 ; Hyperlipidemia E78.5 ; Chronic pain G89.29 ; Glaucoma H40.9 ; Mitral valve prolapse I34.1 and Bilateral headaches R51 [place] [address] 27917- 1478 Feb, [place] [address] 32715- 1939 Feb, Post-traumatic stress disorder, unspecified F43.10 and Major depressive disorder, recurrent, moderate F33.1 [place] [id number] [place] [address] 35735- 7634 Feb, [facility] [id number] [place] [address] 88018- 5842 Feb, [facility] [place] [address] 71264- 5326 Jan, [place] [address] 02229- 9939 Jan, [place] [address] 19357- 7236 Jan, Obesity E66.9 ; HTN (hypertension) I10 ; Blindness and low vision H54.10 ; Major depressive disorder, recurrent, moderate F33.1 ; Glaucoma H40.9 ; Hyperlipidemia E78.5 ; Sleep apnea, obstructive G47.33 ; Chronic pain G89.29 ; Anxiety F41.9 ; Chronic tension headaches G44.229 and Cough R05 [place] [address]996- 9983 Jan, [address] 133183- 0512 Jan, [place] [address]991- 4371 Jan, Post-traumatic stress disorder, unspecified F43.10 ; Obesity E66.9 ; Sleep apnea, obstructive G47.33 and 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 [place] 340996- 8694 Jan, [address] 31720- 7198 Jan, Post-traumatic stress disorder, unspecified F43.10 and Major depressive disorder, recurrent, moderate F33.1 [place] [id number] [place] [address] 28323- 1348 Dec, [address] 11342- 1010 Dec, Sleep apnea, obstructive G47.33 ; Obesity E66.9 ; Hyperlipidemia E78.5 ; Glaucoma H40.9 ; Chronic pain G89.29 ; HTN (hypertension ) I10 ; Blindness and low vision H54.10 ; Anxiety F41.9 and CAD (coronary artery disease) I25.10 [place] [id number] [place] [address] 69350- 9111 Nov, [place] [id number]- 2708 Nov, [facility] [id number] [place] [address] 80396- 8264 Nov, [facility] [address] 88084- 1573 Nov, [facility] [address] 39388- 6650 Nov, [facility] [address] 60887- 6939 Nov, Encounter for immunization Z23 ; Sleep apnea, obstructive G47.33 ; Obesity E66.9 ; Hyperlipidemia E78.5 ; Glaucoma H40.9 ; Chronic pain G89.29 ; Anxiety F41.9 ; Chronic tension headaches G44.229 and HTN (hypertension ) I10 [facility] [address] 35644- 6224 Nov, [facility] [address] 06546- 1931 Nov, [facility] [address] 90875- 1079 Nov, Dizziness R42 [facility] [address] 27501- 5039 Nov, [facility] [id number] [place] [address] 68194- 9416 29 Oct, 2014 [facility] [address] 21725- 7347 28 Oct, 2014 [facility] [address] 72722- 3999 Oct, [facility] [address] 01425- 9837 Oct, [facility] [id number] [place] [address] 10667- 9675 17 Oct, 2014 Dizziness 780.4 ; Essential hypertension 401.9 ; Obesity 278.00 ; Hyperlipidemia 272.4 ; Chronic pain 338.29 ; Glaucoma 365.9 and Anxiety 300.00 [facility] [id number] [place] [address] 79383- 6500 Oct, Essential hypertension 401.9 ; Hyperlipidemia 272.4 ; Glaucoma 365.9 ; Obesity 278.00 ; Chronic pain 338.29 and Allergy to insects V15.06 [facility] [id number] [place] [address] 15028- 1449 Sep, [facility] [id number] [place] [address] 75608- 8582 Sep, [facility] [id number] [place] [address] 47204- 9801 Sep, [facility] [id number] [place] [address] 24149- 5286 Sep, [facility] [id number] [place] [address] 13890- 1371 Aug, Essential hypertension 401.9 ; Obesity 278.00 ; Hyperlipidemia 272.4 ; Glaucoma 365.9 ; Lipoma 214.9 ; Mitral valve prolapse 424.0 ; Angina at rest 413.9 ; Lymphedema 457.1 and Chronic pain 338.29 IMMUNIZATIONS No Known Immunizations SOCIAL HISTORY Never Assessed REASON FOR VISIT bp check-[facility] PLAN OF CARE VITAL SIGNS Height 67 in 2017-09-29 Blood pressure systolic 118 mmHg 2017-09-29 Blood pressure diastolic 85 mmHg 2017-09-29 MEDICATIONS Unknown Medications RESULTS No Results PROCEDURES [...]
--- OUTSIDE RECORDS SUMMARY | 2018-02-04 14:21 | XMS REPORT ---
Author Author ALENA ÁLVAREZ [facility] Address [address] [place] [address] Care Team Providers Care Health Screener Name Role Phone ALENA ÁLVAREZ Unavailable PROBLEMS Type Condition ICD9-CM Code VRN64-ZV Code Onset Dates Condition Status SNOMED Code Problem Hyperlipidemia E78.5 Active 50771549 Problem Arrhythmia as indication for cardiac pacemaker replacement I49.9 Active 81879622 Problem Sleep apnea, obstructive G47.33 Active 41750740 Problem Primary insomnia F51.01 Active 0193399 Problem Chronic pain G89.29 Active 62773873 Problem Morbid (severe) obesity due to excess calories E66.01 Active 849272669 Problem Body mass index (BMI) of 40.0-44.9 in adult Z68.41 Active 086329338 Problem Other male erectile dysfunction N52.8 Active 412204740 Problem Supraventricular tachycardia I47.1 Active 7267328 Problem Sarcoidosis D86.9 Active 69659117 Problem HTN (hypertension) I10 Active 31207604 Problem Blindness and low vision H54.10 Active 843568237 Problem Myocarditis, unspecified chronicity, 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 Active 54064563 Problem Migraine without aura and without status migrainosus, not intractable G43.009 Active 018464043 Problem 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 Active 566801101 Problem Problems related to release from chcf Z65.2 Active [id number] Problem Chronic pain syndrome G89.4 Active 789626252 Problem Major depressive disorder, recurrent, moderate F33.1 Active 62460387 Problem 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 Active 67005188 Problem Chronic tension headaches G44.229 Active 415787879 Problem Anxiety F41.9 Active 65850857 Problem Post-traumatic stress disorder, chronic F43.12 Active 860517671 Problem Environmental allergies Z91.09 Active 471135593 Problem Mitral valve prolapse I34.1 Active 248605759 Problem CAD (coronary artery disease) I25.10 Active 61121191 ALLERGIES No Information ENCOUNTERS Encounter Location Date Diagnosis [facility] [id number] [place] [address] 38611- 9903 Nov, [place] [address] 57257- 4855 Oct, [facility] [address] 65268- 6011 Oct, [facility] [address] 74055 [address]9 18 Oct, 2017 Insect bite (nonvenomous), left lower leg, initial encounter S80.862A ; Bitten or stung by nonvenomous insect and other nonvenomous arthropods, initial encounter W57.XXXA and BMI 40.0-44.9, adult Z68.41 [place] [address] 65898- 5469 06 Oct, 2017 Left leg pain M79.605 [place] [address] 89073- 0305 04 Oct, 2017 Post-traumatic stress disorder, unspecified F43.10 ; Major depressive disorder, recurrent, moderate F33.1 and Problems related to release from chcf Z65.2 [place] [address] 45700- 7245 Sep, Arrhythmia as indication for cardiac pacemaker replacement I49.9 [place] [address] 72658- 5361 Sep, [place] [address] 45385- 4275 Sep, HTN (hypertension) I10 [place] [address] 82805- 5613 Sep, [place] [id number] [place] [address] 59678- 7407 Sep, Body mass index (BMI) of 40.0-44.9 in adult Z68.41 ; Chronic pain G89.29 and Supraventricular tachycardia I47.1 [facility] [id number] [place] [address] 58340- 0043 Sep, [facility] [id number] [place] [address] 28798- 5462 Sep, Sarcoidosis D86.9 [facility] [address] 11804- 6766 Sep, Sarcoidosis D86.9 [facility] [id number] [place] [address] 31499- 9730 Sep, [facility] [id number] [place] [address] 05171- 6695 Sep, [facility] [id number] [place] [address] 10384- 0853 Sep, [facility] [id number] [place] [address] 19807- 7705 Sep, [facility] [id number] [place] [address] 87438- 4056 Sep, Left leg pain M79.605 [facility] [id number] [place] [address] 63766- 2878 Sep, HTN (hypertension) I10 [facility] [id number] [place] [address] 82277- 1643 Sep, [facility] [id number] [place] [address] 55660- 9383 Sep, Post-traumatic stress disorder, unspecified F43.10 ; Major depressive disorder, recurrent, moderate F33.1 and Problems related to release from chcf Z65.2 [facility] [id number] [place] [address] 08653- 7699 Sep, [facility] [id number] [place] [address] 07570- 3550 Aug, [place] [id number] [place] [address] 64713- 3723 Aug, Sarcoidosis D86.9 [place] [address] 19564- 5998 Aug, Sarcoidosis D86.9 [place] [id number] [place] [address] 14451- 5006 Aug, HTN (hypertension) I10 [place] [address] 95354- 8030 Aug, Post-traumatic stress disorder, unspecified F43.10 ; Major depressive disorder, recurrent, moderate F33.1 and Problems related to release from chcf Z65.2 [place] [address] 30319- 4073 11 Aug, 2017 [place] [address] 58705- 0547 Aug, Left leg pain M79.605 [place] [id number] [place] [address] 33868- 5640 26 Jul, 2017 Post-traumatic stress disorder, chronic F43.12 ; Anxiety F41.9 ; Problems related to release from chcf Z65.2 and BMI 40.0-44.9, adult Z68.41 [place] [id number] [place] [address] 44569- 5262 20 Jul, 2017 HTN (hypertension) I10 ; Body mass index (BMI) of 40.0-44.9 in adult Z68.41 ; Acute swimmer''s ear of both sides H60.333 and Chronic pain G89.29 [place] [address] 50335- 0469 19 Jul, 2017 Glaucoma H40.9 [place] [id number] [place] [address] 27620- 4319 14 Jul, 2017 [place] [address] 60268- 2706 13 Jul, 2017 Sarcoidosis D86.9 [facility] [id number] [place] [address] 12923- 4201 Jul, Left leg pain M79.605 [facility] [id number] [place] [address] 39676- 7112 Jul, Sarcoidosis D86.9 [facility] [id number] [place] [address] 64075- 7992 Jul, Post-traumatic stress disorder, unspecified F43.10 ; Major depressive disorder, recurrent, moderate F33.1 and Problems related to release from chcf Z65.2 [facility] [address] 16837- 8611 June, [facility] [id number] [place] [address] 17494 -1574 June, Sore throat J02.9 and BMI 40.0-44.9, adult Z68.41 [facility] [id number] [place] [address] 05582- 3240 June, [facility] [address] 60206- 2803 June, [facility] [id number] [place] [address] 41579- 2436 June, [facility] [id number] [place] [address] 70104- 1351 June, Left leg pain M79.605 [facility] [id number] [place] [address] 69902- 7634 June, Sarcoidosis D86.9 [facility] [id number] [place] [address] 21452- 4056 June, [facility] [id number] [place] [address] 14314- 9888 June, [facility] [id number] [place] [address] 66179- 5967 June, Left leg pain M79.605 [facility] [address] [place] [address] 37419- 8539 May, [facility] [id number] [place] [address] 36583- 2392 May, [facility] [id number] [place] [address] 17494- 0937 May, [facility] [id number] [place] [address] 77752- 5074 May, Left leg pain M79.605 [place] [id number] [place] [address] 07219- 7911 May, Post-traumatic stress disorder, unspecified F43.10 ; Major depressive disorder, recurrent, moderate F33.1 and Problems related to release from chcf Z65.2 [place] [id number] [place] [address] 94734- 6666 May, Chronic pain G89.29 ; Anxiety F41.9 ; Chest pain, unspecified type R07.9 and BMI 40.0-44.9, adult Z68.41 [place] [id number] [place] [address] 79277- 6397 Apr, [place] [address] [place] [address] 58940- 2770 Apr, Left leg pain M79.605 [facility] [address] [place] [address] 88423- 4108 Apr, Post-traumatic stress disorder, unspecified F43.10 ; Problems related to release from chcf Z65.2 ; Anxiety F41.9 and BMI 40.0-44.9 , adult Z68.41 [place] [address] [address]- 8784 Apr, [facility] [id number] [place] [address] 89908- 0574 Apr, Left leg pain M79.605 [place] [id number] [place] [address] 80587- 9356 13 Apr, 2017 Post-traumatic stress disorder, unspecified F43.10 ; Major depressive disorder, recurrent, moderate F33.1 and Problems related to release from chcf Z65.2 [place] [address] 77793- 8252 12 Apr, 2017 [place] [address] 66506- 5920 12 Apr, 2017 Chronic pain G89.29 ; 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 [address] 39686 -2782 Mar, Cough R05 ; Viral gastroenteritis A08.4 and BMI 40.0-44.9, adult Z68.[address] 79303- 8191 19 Mar, 2017 Left leg pain M79.605 [place] [address] 46825- 8115 06 Mar, 2017 Post-traumatic stress disorder, unspecified F43.10 ; Major depressive disorder, recurrent, moderate F33.1 and Problems related to release from chcf Z65.2 [place] [id number] [place] [address] 95282- 6784 Feb, Left leg pain M79.605 [facility] [id number] [place] [address] 34509- 4598 Feb, [place] [id number] [place] [address] 72378- 9403 Feb, BMI 40.0-44.9, adult Z68.41 ; Chronic pain syndrome G89.4 ; Migraine without aura and without status migrainosus, not intractable G43.009 ; Mitral valve prolapse I34.1 and 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 [place] [id number] [place] [address] 80181- 0768 Feb, Post-traumatic stress disorder, chronic F43.12 ; Anxiety F41.9 ; Problems related to release from chcf Z65.2 and BMI 40.0-44.9, adult Z68.41 [place] [id number] [place] [address] 61145- 2242 Feb, Post-traumatic stress disorder, unspecified F43.10 ; Major depressive disorder, recurrent, moderate F33.1 and Problems related to release from chcf Z65.2 [place] [address] [place] [address] 44496- 4896 Feb, Left leg pain M79.605 [place] [id number] [place] [address] 28269- 6331 Jan, Post-traumatic stress disorder, unspecified F43.10 ; Major depressive disorder, recurrent, moderate F33.1 and Problems related to release from chcf Z65.2 [place] [id number] [place] [address] 64860- 1318 Jan, [place] [id number] [place] [address] 28679- 7138 Jan, [place] [address] [address]- 4313 Jan, Anxiety F41.9 [place] [id number] [place] [address] 18189- 2299 13 Jan, 2017 Left leg pain M79.605 [place] [address] [address]- 1889 Dec, Left leg pain M79.605 [place] [id number] [place] [address] 12072- 7910 Dec, [place] [address] [place] [address] 95309- 3673 Dec, Post-traumatic stress disorder, unspecified F43.10 ; Major depressive disorder, recurrent, moderate F33.1 and Problems related to release from chcf Z65.2 [place] [id number] [place] [address] 17383- 4641 31 Nov, 2016 Chronic pain G89.29 and Anxiety F41.9 [place] [address] [place] [address] 33066- 7098 24 Nov, 2016 Chronic pain G89.29 and Anxiety F41.9 [place] [address] [place] [address] 83567- 4609 16 Nov, 2016 Post-traumatic stress disorder, unspecified F43.10 ; Major depressive disorder, recurrent, moderate F33.1 and Problems related to release from chcf Z65.2 [place] [address] [address]- 8338 09 Nov, 2016 Other abnormal findings in specimens from other organs, systems and tissues R89.8 ; Other male erectile dysfunction N52.8 ; Body mass index (BMI) of 40.0-44.9 in adult Z68.41 and Morbid (severe) obesity due to excess calories E66.01 [place] [address] [address]- 3575 02 Nov, 2016 Post-traumatic stress disorder, unspecified F43.10 ; Major depressive disorder, recurrent, moderate F33.1 and Problems related to release from chcf Z65.2 [facility] [address] [id number] 29 Oct, 2016 Dental examination Z01.20 [facility] [address] [place] [address] 95192- 8593 28 Oct, 2016 [facility] [id number] [place] [address] 47809- 4741 Oct, Encounter for immunization Z23 [place] [id number] [place] [address] 61141- 6151 Oct, Chronic pain G89.29 ; Anxiety F41.9 ; Arrhythmia as indication for cardiac pacemaker replacement I49.9 and Glaucoma H40.9 [place] [address] [place] [address] 61026- 4121 Oct, Anxiety F41.9 ; Post-traumatic stress disorder, chronic F43.12 and Problems related to release from chcf Z65.2 [facility] [address] [place] [address] 28591- 3147 Oct, Post-traumatic stress disorder, unspecified F43.10 ; Major depressive disorder, recurrent, moderate F33.1 and Problems related to release from chcf Z65.2 [facility] [address] [place] [address] 47435- 7911 Sep, Chronic pain G89.29 and Anxiety F41.9 [facility] [address] [place] [address] 70854- 9214 Sep, Post-traumatic stress disorder, unspecified F43.10 ; Major depressive disorder, recurrent, moderate F33.1 and Problems related to release from chcf Z65.2 [facility] [address] [place] [address] 47205- 0140 Sep, Post-traumatic stress disorder, unspecified F43.10 ; Major depressive disorder, recurrent, moderate F33.1 and Problems related to release from chcf Z65.2 [place] [address] [place] [address] 02854- 7149 Sep, Chronic pain G89.29 [place] [id number] [place] [address] 62537- 6689 Aug, Dental caries, unspecified K02.9 [place] [id number] [place] [address] 97448- 6148 Aug, Sleep apnea, obstructive G47.33 ; Obesity E66.9 ; Chronic pain G89.29 ; HTN (hypertension) I10 ; Major depressive disorder, recurrent, moderate F33.1 ; Anxiety F41.9 ; Chronic tension headaches G44.229 ; Mitral valve prolapse I34.1 ; Arrhythmia as indication for cardiac pacemaker replacement I49.9 ; Dental caries, unspecified K02.9 ; Primary insomnia F51.01 and Hyperlipidemia E78.5 [place] [id number] [place] [address] 90172- 6979 Aug, Post-traumatic stress disorder, unspecified F43.10 ; Major depressive disorder, recurrent, moderate F33.1 and Problems related to release from chcf Z65.2 [place] [id number] [place] [address] 15928- 5289 Aug, Dental examination Z01.20 [facility] [address] [place] [address] [id number] 13 Aug, 2016 Dental examination Z01.20 [place] [id number] [place] [address] 54990- 4920 06 Aug, 2016 Post-traumatic stress disorder, unspecified F43.10 ; Major depressive disorder, recurrent, moderate F33.1 and Problems related to release from chcf Z65.2 [place] [id number] [place] [address] 10356- 1577 05 Aug, 2016 Chronic pain G89.29 and Primary insomnia F51.01 [place] [address] [place] [address] 00342- 2226 Jul, [place] [address], [place] [address]- 3527 Jul, [place] [id number] [place] [address] 72162- 3557 Jul, Nausea R11.0 [place] [id number] [place] [address] 77046- 1076 Jul, Arrhythmia as indication for cardiac pacemaker replacement I49.9 [place] [id number] [place] [address] 72058- 0640 13 Jul, 2016 Post-traumatic stress disorder, unspecified F43.10 ; Major depressive disorder, recurrent, moderate F33.1 and Problems related to release from chcf Z65.2 [place] [id number] [place] [address] 31103- 7020 09 Jul, 2016 Anxiety F41.9 [place] [address] [place] [address] 09502- 2089 08 Jul, 2016 Chronic pain G89.29 [place] [address] [place] [address] 30128- 1199 02 Jul, 2016 Sleep apnea, obstructive G47.33 ; Hyperlipidemia E78.5 ; Chronic pain G89.29 ; Blindness and low vision H54.10 ; Major depressive disorder, recurrent, moderate F33.1 ; Anxiety F41.9 ; Mitral valve prolapse I34.1 ; Arrhythmia as indication for cardiac pacemaker replacement I49.9 ; Primary insomnia F51.01 ; Bilateral headaches R51 and Environmental allergies Z91.[address] [place] [address] 25823- 1957 Jul, Post-traumatic stress disorder, unspecified F43.10 ; Major depressive disorder, recurrent, moderate F33.1 and Problems related to release from chcf Z65.2 [address] [place] [address] 51020- 2081 June, Post-traumatic stress disorder, chronic F43.12 ; Anxiety F41.9 ; Problems related to release from chcf Z65.2 ; Sleep apnea, obstructive G47.33 and Primary insomnia F51.01 [place] [address] [place] [address] 58253- 0750 June, [place] [id number] [place] [address] 69275- 7183 June, [place] [id number] [place] [address] 85933- 1959 June, [place] [id number] [place] [address] 29881- 4407 June, Chronic pain G89.29 [place] [id number] [place] [address] 14762- 6969 June, Chronic pain G89.29 [place] [id number] [place] [address] 88895- 5927 June, Lipoma of left lower extremity D17.24 ; Open wound T14.8 and Swelling of left lower extremity M79.89 [place] [address] [place] [address] 50417- 6038 June, Post-traumatic stress disorder, unspecified F43.10 ; Major depressive disorder, recurrent, moderate F33.1 and Problems related to release from chcf Z65.2 [address] [place] [address] 80142- 8282 May, Lipoma of left lower extremity D17.24 ; Major depressive disorder, recurrent, moderate F33.1 ; Sleep apnea, obstructive G47.33 ; Hyperlipidemia E78.5 ; Obesity E66.9 ; HTN (hypertension) I10 ; Glaucoma H40.9 ; CAD (coronary artery disease) I25.10 ; Chronic tension headaches G44.229 ; Chronic pain G89.29 ; Anxiety F41.9 ; Nausea R11.0 and Primary insomnia F51.01 [place] [address] [place] [address] 77407- 8742 May, [place] [id number] [place] [address] 27040- 2907 May, Chronic pain G89.29 [place] [address], [place] [address]- 3431 May, [place] [id number] [place] [address] 17439- 9904 Apr, Post-traumatic stress disorder, unspecified F43.10 ; Major depressive disorder, recurrent, moderate F33.1 and Problems related to release from chcf Z65.2 [place] [id number] [place] [address] 92241- 3417 Apr, Primary insomnia F51.01 ; Post-traumatic stress disorder, chronic F43.12 and Problems related to release from chcf Z65.2 [place] [id number] [place] [address] 52096- 1025 17 Apr, 2016 Post-traumatic stress disorder, unspecified F43.10 ; Major depressive disorder, recurrent, moderate F33.1 and Problems related to release from chcf Z65.2 [place] [address] [place] [address] 62510- 9684 Apr, [place] [id number] [place] [address] 63955- 9644 Apr, Sleep apnea, obstructive G47.33 ; Chronic pain G89.29 ; HTN (hypertension) I10 ; Mitral valve prolapse I34.1 ; Shoulder pain, left M25.512 ; Arrhythmia as indication for cardiac pacemaker replacement I49.9 ; Glaucoma H40.9 ; Bilateral headaches R51 ; Environmental allergies Z91.09 ; Primary insomnia F51.01 and Nausea R11.0 [place] [address], [place] [address]- 2130 Apr, [place] [id number] [place] [address] 19404- 9081 Apr, [place] [address] [address]- 4186 Apr, Post-traumatic stress disorder, unspecified F43.10 ; Major depressive disorder, recurrent, moderate F33.1 and Problems related to release from chcf Z65.2 [facility] [address], [place] [address]- 4227 Apr, HTN (hypertension) I10 [facility] [address] [place] [address]- 9403 Apr, HTN (hypertension) I10 [facility] [id number] [place] [address] 34359- 5489 14 Mar, 2016 Chronic pain G89.29 ; Primary insomnia F51.01 and Problems related to release from chcf Z65.2 [place] [id number] [place] [address] 38849- 1168 07 Mar, 2016 Post-traumatic stress disorder, unspecified F43.10 ; Major depressive disorder, recurrent, moderate F33.1 and Problems related to release from chcf Z65.2 [place] [address] [place] [id number] [place] [address] [id number] [id number] Feb, Post-traumatic stress disorder, unspecified F43.10 ; Major depressive disorder, recurrent, moderate F33.1 and Problems related to release from [facility] Z65.2 [place] [address] [place] [id number] [place] [address] [phone] Feb, Chronic tension headaches G44.229 [place] [id number] [place] [address] 47532- 4572 Feb, Sleep apnea, obstructive G47.33 ; Obesity [...] pacemaker replacement I49.9 and Primary insomnia F51.01 [place] [id number] [place] [address] 74341- 5613 Feb, Post-traumatic stress disorder, unspecified F43.10 and Chronic pain G89.29 [facility] [address], [place] [address] Feb, [facility] [id number] [id number] Feb, Dental caries K02.9 [facility] [address] [place] [id number] [place] [address] 54123- 8639 Feb, [facility] [id number] [place] [address] 45255- 1736 Feb, Post-traumatic stress disorder, unspecified F43.10 ; Major depressive disorder, recurrent, moderate F33.1 and Problems related to release from chcf Z65.2 [facility] [id number] [place] [address] 17016- 8866 Jan, Sleep apnea, obstructive G47.33 and Chronic pain G89.29 [facility] [id number] [place] [address] 52951- 3885 Jan, [facility] [id number] [place] [address] 14982- 8434 14 Jan, 2016 Dental examination Z01.20 [facility] [id number] [place] [address] 04398- 2574 Jan, [facility] [address], [place] [address] 6[address] Jan, [facility] [id number] [place] [address] 08320- 0166 Dec, Post-traumatic stress disorder, unspecified F43.10 ; Major depressive disorder, recurrent, moderate F33.1 and Problems related to release from chcf Z65.2 [facility] [address], [place] [address] 8[address] 29 Dec, 2015 Encounter for immunization Z23 ; Problems related to release from chcf Z65.2 ; Sleep apnea, obstructive G47.33 and Post-traumatic stress disorder, chronic F43.12 [facility] [id number] [place] [address] 41504- 9135 18 Dec, 2015 Sleep apnea, obstructive G47.33 ; Hyperlipidemia E78.5 ; Chronic pain G89.29 ; Glaucoma H40.9 ; HTN (hypertension) I10 ; Post-traumatic stress disorder, unspecified F43.10 ; Anxiety F41.9 ; Chronic tension headaches G44.229 ; Mitral valve prolapse I34.1 and CAD (coronary artery disease) I25.10 [place] [address] 04665- 6732 Dec, Post-traumatic stress disorder, unspecified F43.10 ; Major depressive disorder, recurrent, moderate F33.1 and Problems related to release from chcf Z65.2 [place] [address] 00887- 4141 Nov, Chronic pain G89.[address] 49591- 3256 Nov, Post-traumatic stress disorder, unspecified F43.10 ; Major depressive disorder, recurrent, moderate F33.1 and Problems related to release from chcf Z65.2 [place] [address] 89103- 2952 Oct, [place] [address] 30788- 1273 Oct, [place] [facility] [address] 29485- 1484 16 Oct, 2015 Post-traumatic stress disorder, unspecified F43.10 ; Major depressive disorder, recurrent, moderate F33.1 and Problems related to release from chcf Z65.2 [place] [address] 05979- 2126 08 Oct, 2015 [place] [facility] [address] 85847- 2641 07 Oct, 2015 Environmental allergies Z91.09 ; Cough R05 and 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 [facility] [address], [place] [address] 03[address] Sep, [facility] [id number] [place] [address] 08841- 5279 Sep, Post-traumatic stress disorder, unspecified F43.10 ; Major depressive disorder, recurrent, moderate F33.1 and Problems related to release from chcf Z65.2 [facility] [id number] [place] [address] 14672- 2607 Sep, Chronic pain G89.29 [facility] [id number] [place] [address] 26447- 9109 Sep, Pain in left shoulder M25.512 ; Pain in right shoulder M25.511 and Other chronic pain G89.29 [facility] [id number] [place] [address] 35732- 7579 Sep, [facility] [id number] [place] [address] 20031- 0972 Sep, [facility] [id number] [place] [address] 10710- 0889 Sep, [facility] [id number] [place] [address] [id number] Aug, Dental examination Z01.20 [facility] [address] [place] [address] 46353- 4053 Aug, Post-traumatic stress disorder, unspecified F43.10 ; Open- angle glaucoma of both eyes H40.10X0 and Problems related to release from chcf Z65.2 [facility] [address] [place] [address] 09344- 6091 Aug, [facility] [id number] [place] [address] 35834- 8199 Aug, Sleep apnea, obstructive G47.33 ; Obesity E66.9 ; Hyperlipidemia E78.5 ; Bilateral headaches R51 ; HTN (hypertension) I10 ; Post- traumatic stress disorder, unspecified F43.10 ; Anxiety F41.9 ; Neuropathy G62.9 ; Glaucoma H40.9 and Chronic pain G89.29 [facility] [address] [place] [address] [id number] Aug, Encounter for dental examination Z01.20 [facility] [id number] [place] [address] 46570- 3164 08 Aug, 2015 Post-traumatic stress disorder, unspecified F43.10 ; Major depressive disorder, recurrent, moderate F33.1 and Problems related to release from chcf Z65.2 [facility] [id number] [place] [address] 44581- 6229 Aug, [facility] [id number] [place] [address] 67602- 7452 Jul, [facility] [id number] [place] [address] 93334- 7327 Jul, Post-traumatic stress disorder, unspecified F43.10 and Major depressive disorder, recurrent, moderate F33.1 [facility] [address] [place] [address] 93377- 7276 Jul, [facility] [id number] [place] [address] 51216- 4998 Jul, [facility] [id number] [place] [address] 90543- 9673 Jul, Chronic pain G89.29 [facility] [id number] [place] [address] 48465- 9537 June, Post-traumatic stress disorder, unspecified F43.10 and Major depressive disorder, recurrent, moderate F33.1 [facility] [id number] [place] [address] 19948- 1374 June, [facility] [id number] [place] [address] 04776- 3078 June, Chronic pain G89.29 [facility] [id number] [place] [address] 43525- 1860 June, Post-traumatic stress disorder, unspecified F43.10 and Major depressive disorder, recurrent, moderate F33.1 [facility] [id number] [place] [address] 60145- 5306 May, Post-traumatic stress disorder, unspecified F43.10 and Major depressive disorder, recurrent, moderate F33.1 [facility] [id number] [place] [address] 58205- 7786 May, [facility] [id number] [place] [address] 03487- 6770 May, [facility] [id number] [place] [address] 15636- 8101 May, [facility] [id number] [place] [address] 77398- 9217 Apr, [facility] [id number] [place] [address] 28812- 0574 Apr, Post-traumatic stress disorder, unspecified F43.10 and Sleep apnea, obstructive G47.33 [facility] [id number] [place] [address] 15137- 9871 Apr, [facility] [id number] [place] [address] 81983- 8223 Apr, Shoulder pain, left M25.512 [facility] [id number] [place] [address] 04667- 4978 18 Apr, 2015 Post-traumatic stress disorder, unspecified F43.10 and Major depressive disorder, recurrent, moderate F33.1 [facility] [id number] [place] [address] 43826- 2389 17 Apr, 2015 [facility] [id number] [place] [address] 93070- 3926 11 Apr, 2015 [facility] [id number] [place] [address] 72432- 2418 08 Apr, 2015 [place] [id number] [place] [address] 93135- 0979 Apr, Left shoulder pain M25.512 [place] [id number] [place] [address] 12750- 4798 Mar, [facility] [id number] [place] [address] 43755- 2666 Mar, [place] [id number] [place] [address] 28298- 3350 Mar, [facility] [id number] [place] [address] 10202- 3291 Mar, Sleep apnea, obstructive G47.33 ; Obesity E66.9 ; Chronic pain G89.29 ; Hyperlipidemia E78.5 ; HTN (hypertension) I10 ; Blindness and low vision H54.10 ; Major depressive disorder, recurrent, moderate F33.1 and Anxiety F41.9 [place] [id number] [place] [address] 46195- 1038 Mar, [facility] [id number] [place] [address] 67741- 5891 Mar, Post-traumatic stress disorder, unspecified F43.10 and Major depressive disorder, recurrent, moderate F33.1 [place] [id number] [place] [address] 24113- 0965 Mar, [place] [id number] [place] [address] 16705- 8539 Mar, HTN (hypertension) I10 ; Blindness and low vision H54.10 ; Obesity E66.9 ; Hyperlipidemia E78.5 ; Glaucoma H40.9 ; Chronic pain G89.29 and CAD (coronary artery disease) I25.10 [place] [id number] [place] [address] 78968- 1026 Feb, [facility] [id number] [place] [address] 71997- 8619 Feb, Post-traumatic stress disorder, unspecified F43.10 ; Obesity E66.9 ; Sleep apnea, obstructive G47.33 and 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 [place] [id number] [place] [address] 11798- 8330 Feb, Post-traumatic stress disorder, unspecified F43.10 and Major depressive disorder, recurrent, moderate F33.1 [place] [address] 02922- 9329 Feb, [place] [address] 16426- 3124 Feb, [place] [address] 55511- 2773 Feb, HTN (hypertension) I10 ; Post-traumatic stress disorder, unspecified F43.10 ; Blindness and low vision H54.10 ; Obesity E66.9 ; Hyperlipidemia E78.5 ; Chronic pain G89.29 ; Glaucoma H40.9 ; Mitral valve prolapse I34.1 and Bilateral headaches R51 [place] [address] 99931- 3387 Feb, [place] [address] 83565- 6272 Feb, Post-traumatic stress disorder, unspecified F43.10 and Major depressive disorder, recurrent, moderate F33.1 [place] [id number] [place] [address] 86988- 1870 Feb, [place] [id number] [place] [address] 01291- 7974 Feb, [place] [address] 31070- 6612 Jan, [place] [address] 37286- 0820 Jan, [place] [address] 19177- 8246 Jan, Obesity E66.9 ; HTN (hypertension) I10 ; Blindness and low vision H54.10 ; Major depressive disorder, recurrent, moderate F33.1 ; Glaucoma H40.9 ; Hyperlipidemia E78.5 ; Sleep apnea, obstructive G47.33 ; Chronic pain G89.29 ; Anxiety F41.9 ; Chronic tension headaches G44.229 and Cough R05 [place] [address]- 2003 Jan, [address] 751465- 4903 Jan, [place] [address]1145- 7475 Jan, Post-traumatic stress disorder, unspecified F43.10 ; Obesity E66.9 ; Sleep apnea, obstructive G47.33 and 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 [place] [address]1147- 4929 Jan, [address] 59780- 4438 Jan, Post-traumatic stress disorder, unspecified F43.10 and Major depressive disorder, recurrent, moderate F33.1 [place] [id number] [place] [address] 01193- 3952 Dec, [address] 91877- 4824 Dec, Sleep apnea, obstructive G47.33 ; Obesity E66.9 ; Hyperlipidemia E78.5 ; Glaucoma H40.9 ; Chronic pain G89.29 ; HTN (hypertension ) I10 ; Blindness and low vision H54.10 ; Anxiety F41.9 and CAD (coronary artery disease) I25.10 [place] [id number] [place] [address] 73131- 9843 Nov, [place] [address]84- 9118 Nov, [facility] [id number] [place] [address] 54833- 4649 Nov, [facility] [address] 66150- 6261 Nov, [facility] [address] 88021- 8234 Nov, [facility] [address] 25559- 8040 Nov, Encounter for immunization Z23 ; Sleep apnea, obstructive G47.33 ; Obesity E66.9 ; Hyperlipidemia E78.5 ; Glaucoma H40.9 ; Chronic pain G89.29 ; Anxiety F41.9 ; Chronic tension headaches G44.229 and HTN (hypertension ) I10 [facility] [address] 19187- 7005 Nov, [facility] [address] 97353- 7936 Nov, [facility] [address] 85504- 7569 Nov, Dizziness R42 [facility] [address] 84484- 0301 Nov, [facility] [id number] [place] [address] 52122- 8137 29 Oct, 2014 [facility] [address] 06491- 2240 28 Oct, 2014 [facility] [address] 12772- 0525 Oct, [facility] [address] 08218- 5656 Oct, [facility] [id number] [place] [address] 12566- 3059 17 Oct, 2014 Dizziness 780.4 ; Essential hypertension 401.9 ; Obesity 278.00 ; Hyperlipidemia 272.4 ; Chronic pain 338.29 ; Glaucoma 365.9 and Anxiety 300.00 [facility] [address] [place] [address] 49652- 4219 Oct, Essential hypertension 401.9 ; Hyperlipidemia 272.4 ; Glaucoma 365.9 ; Obesity 278.00 ; Chronic pain 338.29 and Allergy to insects V15.06 [facility] [address] [place] [address] 35850- 2329 Sep, [facility] [id number] [place] [address] 82485- 2274 Sep, [facility] [id number] [place] [address] 03190- 5151 Sep, [facility] [id number] [place] [address] 10030- 4003 Sep, [facility] [id number] [place] [address] 23792- 3462 Aug, Essential hypertension 401.9 ; Obesity 278.00 ; Hyperlipidemia 272.4 ; Glaucoma 365.9 ; Lipoma 214.9 ; Mitral valve prolapse 424.0 ; Angina at rest 413.9 ; Lymphedema 457.1 and Chronic pain 338.29 IMMUNIZATIONS No Known Immunizations SOCIAL HISTORY Never Assessed REASON FOR VISIT BP CHECK-[facility] PLAN OF CARE VITAL SIGNS Height 67 in 2017-09-22 Blood pressure systolic 124 mmHg 2017-09-22 Blood pressure diastolic 78 mmHg 2017-09-22 MEDICATIONS Unknown Medications RESULTS No Results PROCEDURES [...]
--- OUTSIDE RECORDS SUMMARY | 2018-02-04 14:22 | XMS REPORT ---
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 Hairspring I Inspector Name Role Phone ALENA ÁLVAREZ Unavailable PROBLEMS Type Condition ICD9-CM Code TIF77-MJ Code Onset Dates Condition Status SNOMED Code Problem Hyperlipidemia E78.5 Active 58541476 Problem Arrhythmia as indication for cardiac pacemaker replacement I49.9 Active 36186154 Problem Sleep apnea, obstructive G47.33 Active 87411374 Problem Primary insomnia F51.01 Active 3507091 Problem Chronic pain G89.29 Active 37385121 Problem Morbid (severe) obesity due to excess calories E66.01 Active 951957418 Problem Body mass index (BMI) of 40.0-44.9 in adult Z68.41 Active 288944537 Problem Other male erectile dysfunction N52.8 Active 077365384 Problem Supraventricular tachycardia I47.1 Active 5772150 Problem Sarcoidosis D86.9 Active 72670835 Problem HTN (hypertension) I10 Active 68613436 Problem Blindness and low vision H54.10 Active 420334780 Problem Myocarditis, unspecified chronicity, 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 Active 62331919 Problem Migraine without aura and without status migrainosus, not intractable G43.009 Active 306023585 Problem 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 Active 107659018 Problem Problems related to release from senior living Z65.2 Active [id number] Problem Chronic pain syndrome G89.4 Active 983396753 Problem Major depressive disorder, recurrent, moderate F33.1 Active 28345371 Problem 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 Active 81430534 Problem Chronic tension headaches G44.229 Active 602774915 Problem Anxiety F41.9 Active 57142122 Problem Post-traumatic stress disorder, chronic F43.12 Active 801392654 Problem Environmental allergies Z91.09 Active 278203840 Problem Mitral valve prolapse I34.1 Active 360151639 Problem CAD (coronary artery disease) I25.10 Active 88202242 ALLERGIES No Information ENCOUNTERS Encounter Location Date Diagnosis [facility] [id number] [place] [address] 34461- 4910 Nov, [facility] [address] 89016- 8954 Oct, [facility] [address] 98522- 2869 Oct, [place] [address] 94399- 4187 Oct, Left leg pain M79.605 [place] [address] 32879- 8159 04 Oct, 2017 Post-traumatic stress disorder, unspecified F43.10 ; Major depressive disorder, recurrent, moderate F33.1 and Problems related to release from senior living Z65.2 [place] [address] 75431- 5766 Sep, Arrhythmia as indication for cardiac pacemaker replacement I49.9 [place] [address] 64171- 6429 Sep, [place] [address] 82975- 6558 Sep, HTN (hypertension) I10 [facility] [id number] [place] [address] 96084- 1181 Sep, [place] [address] 02966- 2280 Sep, Body mass index (BMI) of 40.0-44.9 in adult Z68.41 ; Chronic pain G89.29 and Supraventricular tachycardia I47.1 [facility] [id number] [place] [address] 90903- 9969 Sep, [facility] [address] 81605- 7947 13 Sep, 2017 Sarcoidosis D86.9 [facility] [address] [address]- 1465 Sep, Sarcoidosis D86.9 [facility] [id number] [place] [address] 85576- 1476 Sep, [facility] [id number] [place] [address] 57140- 8576 Sep, [facility] [id number] [place] [address] 73919- 3085 Sep, [facility] [id number] [place] [address] 73021- 3079 Sep, [facility] [id number] [place] [address] 66818- 4683 Sep, Left leg pain M79.605 [facility] [id number] [place] [address] 89843- 2204 Sep, HTN (hypertension) I10 [facility] [id number] [place] [address] 37601- 4662 Sep, [facility] [id number] [place] [address] 32276- 8352 Sep, Post-traumatic stress disorder, unspecified F43.10 ; Major depressive disorder, recurrent, moderate F33.1 and Problems related to release from senior living Z65.2 [facility] [id number] [place] [address] 49418- 8936 Sep, [facility] [address] [address] 2544 Aug, [facility] [id number] [place] [address] 94980- 7326 Aug, Sarcoidosis D86.9 [facility] [address] [address] 2546 Aug, Sarcoidosis D86.9 [facility] [id number] [place] [address] 30447- 8353 30 Aug, 2017 HTN (hypertension) I10 [facility] [place] [id number] [place] [address] 35933- 1844 18 Aug, 2017 Post-traumatic stress disorder, unspecified F43.10 ; Major depressive disorder, recurrent, moderate F33.1 and Problems related to release from senior living Z65.2 [place] [address] 00100- 9540 11 Aug, 2017 [place] [address] 80134- 3574 Aug, Left leg pain M79.605 [place] [address] 03320- 4212 26 Jul, 2017 Post-traumatic stress disorder, chronic F43.12 ; Anxiety F41.9 ; Problems related to release from senior living Z65.2 and BMI 40.0-44.9, adult Z68.41 [place] [address] 10428- 8521 20 Jul, 2017 HTN (hypertension) I10 ; Body mass index (BMI) of 40.0-44.9 in adult Z68.41 ; Acute swimmer''s ear of both sides H60.333 and Chronic pain G89.29 [facility] [place] [id number] [place] [address] 36652- 9910 19 Jul, 2017 Glaucoma H40.9 [facility] [place] [id number] [place] [address] 09601- 5497 14 Jul, 2017 [facility] [id number] [place] [address] 36057- 9748 13 Jul, 2017 Sarcoidosis D86.9 [facility] [address] 07619- 8116 Jul, Left leg pain M79.605 [place] [address] 46443- 6655 12 Jul, 2017 Sarcoidosis D86.9 [facility] [id number] [address]- 9689 Jul, Post-traumatic stress disorder, unspecified F43.10 ; Major depressive disorder, recurrent, moderate F33.1 and Problems related to release from senior living Z65.2 [facility] [id number] [address] 7009 June, [facility] [id number] [place] [address] 17251 -3948 June, Sore throat J02.9 and BMI 40.0-44.9, adult Z68.41 [facility] [id number] [place] [address] 31061- 3282 June, [facility] [id number] [place] [address] 36293- 5317 June, [facility] [id number] [place] [address] 58886- 0190 June, [facility] [id number] [place] [address] 99980- 4393 June, Left leg pain M79.605 [facility] [id number] [place] [address] 11627- 9279 June, Sarcoidosis D86.9 [facility] [id number] [address]- 1388 June, [facility] [id number] [place] [address] 22589- 0523 June, [facility] [address] [address]- 8430 June, Left leg pain M79.605 [facility] [id number] [address]- 2303 May, [facility] [address] [address]- 0104 May, [facility] [id number] [address]- 1098 May, [facility] [id number] [place] [address] 09103- 1197 May, Left leg pain M79.605 [facility] [id number] [place] [address] 18936- 1523 May, Post-traumatic stress disorder, unspecified F43.10 ; Major depressive disorder, recurrent, moderate F33.1 and Problems related to release from senior living Z65.2 [facility] [place] [id number] [place] [address] 55023- 2962 May, Chronic pain G89.29 ; Anxiety F41.9 ; Chest pain, unspecified type R07.9 and BMI 40.0-44.9, adult Z68.41 [facility] [id number] [place] [address] 86859- 9977 30 Apr, 2017 [facility] [id number] [place] [address] 73451- 8460 Apr, Left leg pain M79.605 [facility] [id number] [place] [address] 35230- 1171 27 Apr, 2017 Post-traumatic stress disorder, unspecified F43.10 ; Problems related to release from senior living Z65.2 ; Anxiety F41.9 and BMI 40.0-44.9 , adult Z68.41 [facility] [place] [id number] [place] [address] 16391- 8961 Apr, [facility] [place] [id number] [place] [address] 03202- 6110 Apr, Left leg pain M79.605 [facility] [id number] [place] [address] 13990- 5162 Apr, Post-traumatic stress disorder, unspecified F43.10 ; Major depressive disorder, recurrent, moderate F33.1 and Problems related to release from senior living Z65.2 [place] [address] 80856- 4234 Apr, [facility] [address] 19477- 1151 12 Apr, 2017 Chronic pain G89.29 ; 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 [address] [place] [address] 12011 -1560 Mar, Cough R05 ; Viral gastroenteritis A08.4 and BMI 40.0-44.9, adult Z68.41 [place] [address] 55916- 0661 Mar, Left leg pain M79.605 [place] [address] 02321- 8075 06 Mar, 2017 Post-traumatic stress disorder, unspecified F43.10 ; Major depressive disorder, recurrent, moderate F33.1 and Problems related to release from senior living Z65.2 [place] [address] 37645- 4038 Feb, Left leg pain M79.605 [place] [address] 33897- 7948 Feb, [facility] [id number] [place] [address] 28714- 7015 Feb, BMI 40.0-44.9, adult Z68.41 ; Chronic pain syndrome G89.4 ; Migraine without aura and without status migrainosus, not intractable G43.009 ; Mitral valve prolapse I34.1 and 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 [place] [address] 49846- 2591 Feb, Post-traumatic stress disorder, chronic F43.12 ; Anxiety F41.9 ; Problems related to release from senior living Z65.2 and BMI 40.0-44.9, adult Z68.41 [place] [address] 51542- 5424 Feb, Post-traumatic stress disorder, unspecified F43.10 ; Major depressive disorder, recurrent, moderate F33.1 and Problems related to release from senior living Z65.2 [facility] [place] [id number] [place] [address] 71109- 0618 Feb, Left leg pain M79.605 [place] [address] 92117- 0670 Jan, Post-traumatic stress disorder, unspecified F43.10 ; Major depressive disorder, recurrent, moderate F33.1 and Problems related to release from senior living Z65.2 [facility] [id number] [place] [address] 26023- 6194 Jan, [facility] [place] [id number] [place] [address] 17359- 7007 Jan, [facility] [place] [id number] [place] [address] 32645- 1614 Jan, Anxiety F41.9 [facility] [id number] [place] [address] 47299- 9921 Jan, Left leg pain M79.605 [place] [address] 56173- 1255 Dec, Left leg pain M79.605 [facility] [id number] [place] [address] 09851- 2226 Dec, [facility] [id number] [place] [address] 19025- 3622 Dec, Post-traumatic stress disorder, unspecified F43.10 ; Major depressive disorder, recurrent, moderate F33.1 and Problems related to release from senior living Z65.2 [facility] [id number] [place] [address] 98497- 3114 Nov, Chronic pain G89.29 and Anxiety F41.9 [facility] [id number] [place] [address] 60380- 3211 Nov, Chronic pain G89.29 and Anxiety F41.9 [facility] [id number] [place] [address] 43457- 1674 16 Nov, 2016 Post-traumatic stress disorder, unspecified F43.10 ; Major depressive disorder, recurrent, moderate F33.1 and Problems related to release from senior living Z65.2 [facility] [id number] [place] [address] 05026- 9733 09 Nov, 2016 Other abnormal findings in specimens from other organs, systems and tissues R89.8 ; Other male erectile dysfunction N52.8 ; Body mass index (BMI) of 40.0-44.9 in adult Z68.41 and Morbid (severe) obesity due to excess calories E66.01 [facility] [id number] [place] [address] 11291- 5583 02 Nov, 2016 Post-traumatic stress disorder, unspecified F43.10 ; Major depressive disorder, recurrent, moderate F33.1 and Problems related to release from senior living Z65.2 [facility] [address] [place] [address] [id number] Oct, Dental examination Z01.20 [facility] [id number] [place] [address] 79140- 2413 Oct, [place] [id number] [place] [address] 47731- 5658 28 Oct, 2016 Encounter for immunization Z23 [place] [address] 02018- 1898 Oct, Chronic pain G89.29 ; Anxiety F41.9 ; Arrhythmia as indication for cardiac pacemaker replacement I49.9 and Glaucoma H40.9 [facility] [id number] [place] [address] 84295- 5533 Oct, Anxiety F41.9 ; Post-traumatic stress disorder, chronic F43.12 and Problems related to release from senior living Z65.2 [facility] [place] [id number] [place] [address] 78296- 0086 07 Oct, 2016 Post-traumatic stress disorder, unspecified F43.10 ; Major depressive disorder, recurrent, moderate F33.1 and Problems related to release from senior living Z65.2 [facility] [id number] [place] [address] 90124- 8018 Sep, Chronic pain G89.29 and Anxiety F41.9 [facility] [place] [id number] [place] [address] 69901- 9424 Sep, Post-traumatic stress disorder, unspecified F43.10 ; Major depressive disorder, recurrent, moderate F33.1 and Problems related to release from senior living Z65.2 [facility] [place] [id number] [place] [address] 15371- 6072 Sep, Post-traumatic stress disorder, unspecified F43.10 ; Major depressive disorder, recurrent, moderate F33.1 and Problems related to release from senior living Z65.2 [facility] [place] [id number] [place] [address] 94558- 0056 Sep, Chronic pain G89.29 [facility] [id number] [place] [address] 78355- 7162 Aug, Dental caries, unspecified K02.9 [facility] [id number] [place] [address] 28736- 6118 Aug, Sleep apnea, obstructive G47.33 ; Obesity E66.9 ; Chronic pain G89.29 ; HTN (hypertension) I10 ; Major depressive disorder, recurrent, moderate F33.1 ; Anxiety F41.9 ; Chronic tension headaches G44.229 ; Mitral valve prolapse I34.1 ; Arrhythmia as indication for cardiac pacemaker replacement I49.9 ; Dental caries, unspecified K02.9 ; Primary insomnia F51.01 and Hyperlipidemia E78.5 [facility] [id number] [place] [address] 57730- 9068 Aug, Post-traumatic stress disorder, unspecified F43.10 ; Major depressive disorder, recurrent, moderate F33.1 and Problems related to release from senior living Z65.2 [facility] [place] [id number] [place] [address] 88913- 5969 Aug, Dental examination Z01.20 [facility] [address] [id number] Aug, Dental examination Z01.20 [facility] [id number] [place] [address] 55935- 9579 Aug, Post-traumatic stress disorder, unspecified F43.10 ; Major depressive disorder, recurrent, moderate F33.1 and Problems related to release from senior living Z65.2 [facility] [id number] [place] [address] 95233- 1783 Aug, Chronic pain G89.29 and Primary insomnia F51.01 [facility] [id number] [place] [address] 39555- 2699 Jul, [facility] [id number] [place] [address] 13807- 8259 Jul, [place] [id number] [place] [address] 83516- 5927 Jul, Nausea R11.0 [facility] [id number] [place] [address] 30364- 4557 29 Abraham, 2017 Arrhythmia as indication for cardiac pacemaker replacement I49.9 [place] [address] [place] [address] 57368- 1987 13 Jul, 2016 Post-traumatic stress disorder, unspecified F43.10 ; Major depressive disorder, recurrent, moderate F33.1 and Problems related to release from senior living Z65.2 [facility] [id number] [place] [address] 23967- 5168 09 Jul, 2016 Anxiety F41.9 [place] [address] 72219- 4474 08 Jul, 2016 Chronic pain G89.[address] 34622- 2323 Jul, Sleep apnea, obstructive G47.33 ; Hyperlipidemia E78.5 ; Chronic pain G89.29 ; Blindness and low vision H54.10 ; Major depressive disorder, recurrent, moderate F33.1 ; Anxiety F41.9 ; Mitral valve prolapse I34.1 ; Arrhythmia as indication for cardiac pacemaker replacement I49.9 ; Primary insomnia F51.01 ; Bilateral headaches R51 and Environmental allergies Z91.09 [place] [id number] [place] [address] 14273- 7649 Jul, Post-traumatic stress disorder, unspecified F43.10 ; Major depressive disorder, recurrent, moderate F33.1 and Problems related to release from senior living Z65.2 [place] [id number] [place] [address] 76230- 7963 June, Post-traumatic stress disorder, chronic F43.12 ; Anxiety F41.9 ; Problems related to release from senior living Z65.2 ; Sleep apnea, obstructive G47.33 and Primary insomnia F51.01 [place] [id number] [place] [address] 60768- 8966 June, [place] [id number] [place] [address] 83065- 0216 June, [place] [id number] [place] [address] 50451- 7755 June, [place] [id number] [place] [address] 83119- 6250 June, Chronic pain G89.29 [facility] [place] [id number] [place] [address] 21933- 8188 June, Chronic pain G89.29 [facility] [id number] [place] [address] 42762- 9421 June, Lipoma of left lower extremity D17.24 ; Open wound T14.8 and Swelling of left lower extremity M79.89 [facility] [id number] [place] [address] 32151- 9169 June, Post-traumatic stress disorder, unspecified F43.10 ; Major depressive disorder, recurrent, moderate F33.1 and Problems related to release from senior living Z65.2 [facility] [place] [id number] [place] [address] 42278- 2396 May, Lipoma of left lower extremity D17.24 ; Major depressive disorder, recurrent, moderate F33.1 ; Sleep apnea, obstructive G47.33 ; Hyperlipidemia E78.5 ; Obesity E66.9 ; HTN (hypertension) I10 ; Glaucoma H40.9 ; CAD (coronary artery disease) I25.10 ; Chronic tension headaches G44.229 ; Chronic pain G89.29 ; Anxiety F41.9 ; Nausea R11.0 and Primary insomnia F51.01 [place] [address] [place] [address] 26103- 2187 May, [facility] [address] [place] [address] 63657- 3933 May, Chronic pain G89.29 [facility] [place] [id number] [place] [address] 17632- 1206 May, [facility] [id number] [place] [address] 39619- 4209 Apr, Post-traumatic stress disorder, unspecified F43.10 ; Major depressive disorder, recurrent, moderate F33.1 and Problems related to release from senior living Z65.2 [place] [address] [address]- 3713 Apr, Primary insomnia F51.01 ; Post-traumatic stress disorder, chronic F43.12 and Problems related to release from senior living Z65.2 [facility] [id number] [place] [address] 67068- 3476 17 Apr, 2016 Post-traumatic stress disorder, unspecified F43.10 ; Major depressive disorder, recurrent, moderate F33.1 and Problems related to release from senior living Z65.2 [facility] [id number] [place] [address] 61430- 0732 16 Apr, 2016 [facility] [id number] [place] [address] 25128- 5136 Apr, Sleep apnea, obstructive G47.33 ; Chronic pain G89.29 ; HTN (hypertension) I10 ; Mitral valve prolapse I34.1 ; Shoulder pain, left M25.512 ; Arrhythmia as indication for cardiac pacemaker replacement I49.9 ; Glaucoma H40.9 ; Bilateral headaches R51 ; Environmental allergies Z91.09 ; Primary insomnia F51.01 and Nausea R11.0 [facility] [address] [place] [address] 96074- 1855 Apr, [facility] [id number] [place] [address] 10405- 6795 Apr, [facility] [id number] [place] [address] 23210- 9956 Apr, Post-traumatic stress disorder, unspecified F43.10 ; Major depressive disorder, recurrent, moderate F33.1 and Problems related to release from senior living Z65.2 [facility] [id number] [place] [address] 74059- 4411 Apr, HTN (hypertension) I10 [facility] [id number] [place] [address] 46880- 2547 Apr, HTN (hypertension) I10 [facility] [place] [id number] [place] [address] 83678- 3001 14 Mar, 2016 Chronic pain G89.29 ; Primary insomnia F51.01 and Problems related to release from senior living Z65.2 [facility] [id number] [place] [address] 67441- 0058 07 Mar, 2016 Post-traumatic stress disorder, unspecified F43.10 ; Major depressive disorder, recurrent, moderate F33.1 and Problems related to release from senior living Z65.2 [facility] [id number] [place] [address] 85339- 7138 Feb, Post-traumatic stress disorder, unspecified F43.10 ; Major depressive disorder, recurrent, moderate F33.1 and Problems related to release from senior living Z65.2 [facility] [id number] [place] [address] 73213- 1052 Feb, Chronic tension headaches G44.229 [place] [id number] [place] [address] 33520- 7505 Feb, Sleep apnea, obstructive G47.33 ; Obesity E66.9 ; Hyperlipidemia E78.5 ; Glaucoma H40.9 ; Chronic pain G89.29 ; HTN (hypertension ) I10 ; Blindness and low vision H54.10 ; 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 ; Chronic tension headaches G44.229 ; Cough R05 ; CAD (coronary artery disease) I25.10 ; Problems related to release from senior living Z65.2 ; Arrhythmia as indication for cardiac pacemaker replacement I49.9 and Primary insomnia F51.01 [place] [id number] [place] [phone] 17 Feb, 2016 Post-traumatic stress disorder, unspecified F43.10 and Chronic pain G89.29 [place] [address] [place] [id number] [place] [phone] Feb, [facility] [id number] [place] [id number] Feb, Dental caries K02.9 [place] [address] [place] [id number] [place] [address] [phone] Feb, [address] [address] Feb, Post-traumatic stress disorder, unspecified F43.10 ; Major depressive disorder, recurrent, moderate F33.1 and Problems related to release from senior living Z65.[address] [address]- 47[address] Jan, Sleep apnea, obstructive G47.33 and Chronic pain G89.[address] [address]- 5557 Jan, [address] [address]- 1210 Jan, Dental examination Z01.[address] 16044- 6353 Jan, [place] [address] [address]- 8617 Jan, [address] 20298- 0811 Dec, Post-traumatic stress disorder, unspecified F43.10 ; Major depressive disorder, recurrent, moderate F33.1 and Problems related to release from senior living Z65.[address] 14466- 6175 Dec, Encounter for immunization Z23 ; Problems related to release from senior living Z65.2 ; Sleep apnea, obstructive G47.33 and Post-traumatic stress disorder, chronic F43.[address] 98602- 5668 Dec, Sleep apnea, obstructive G47.33 ; Hyperlipidemia E78.5 ; Chronic pain G89.29 ; Glaucoma H40.9 ; HTN (hypertension) I10 ; Post-traumatic stress disorder, unspecified F43.10 ; Anxiety F41.9 ; Chronic tension headaches G44.229 ; Mitral valve prolapse I34.1 and CAD (coronary artery disease) I25.10 [place] [address] [place] [id number] [place] [address] 59363- 5078 Dec, Post-traumatic stress disorder, unspecified F43.10 ; Major depressive disorder, recurrent, moderate F33.1 and Problems related to release from senior living Z65.2 [place] [address] [place] [id number] [place] [address] 55739- 6628 Nov, Chronic pain G89.29 [place] [address] 22396- 5868 Nov, Post-traumatic stress disorder, unspecified F43.10 ; Major depressive disorder, recurrent, moderate F33.1 and Problems related to release from senior living Z65.2 [place] [address] [place] [id number] [place] [address] 39690- 1629 Oct, [place] [address] 84806- 8561 Oct, [place] [address] [address] [id number] [place] [address] 39310- 1663 16 Oct, 2015 Post-traumatic stress disorder, unspecified F43.10 ; Major depressive disorder, recurrent, moderate F33.1 and Problems related to release from senior living Z65.2 [place] [id number] [place] [address] 77729- 7689 08 Oct, 2015 [place] [address] [address] [id number] [place] [address] 44222- 0026 07 Oct, 2015 Environmental allergies Z91.09 ; Cough R05 and 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 [place] [address] 50385- 6580 Sep, [place] [address] [place] [address] [id number] [place] [address] 83986- 0635 Sep, Post-traumatic stress disorder, unspecified F43.10 ; Major depressive disorder, recurrent, moderate F33.1 and Problems related to release from senior living Z65.2 [place] [id number] [place] [address] 51445- 5873 Sep, Chronic pain G89.29 [place] [address] [place] [address] [id number] [place] [address] 39111- 2767 Sep, Pain in left shoulder M25.512 ; Pain in right shoulder M25.511 and Other chronic pain G89.29 [place] [address] [id number] [place] [address] 54268- 2445 Sep, [place] [address] [id number] [place] [address] 68421- 9882 Sep, [place] [address] [address] [id number] [place] [address] 43968- 0019 Sep, [facility] [id number] [place] [address] [id number] Aug, Dental examination Z01.20 [place] [address] [address] [id number] [place] [address] 92786- 6201 Aug, Post-traumatic stress disorder, unspecified F43.10 ; Open- angle glaucoma of both eyes H40.10X0 and Problems related to release from senior living Z65.2 [place] [id number] [place] [address] 42777- 8981 Aug, [place] [address] [address] [id number] [place] [address] 69366- 5626 Aug, Sleep apnea, obstructive G47.33 ; Obesity E66.9 ; Hyperlipidemia E78.5 ; Bilateral headaches R51 ; HTN (hypertension) I10 ; Post- traumatic stress disorder, unspecified F43.10 ; Anxiety F41.9 ; Neuropathy G62.9 ; Glaucoma H40.9 and Chronic pain G89.29 [facility] [id number] [place] [address] [id number] Aug, Encounter for dental examination Z01.20 [place] [address] [id number] [place] [address] 73029- 0672 Aug, Post-traumatic stress disorder, unspecified F43.10 ; Major depressive disorder, recurrent, moderate F33.1 and Problems related to release from senior living Z65.2 [facility] [id number] [address] 26[address] Aug, [facility] [id number] [address]- 8091 Jul, [facility] [id number] [place] [address] 87060- 3233 Jul, Post-traumatic stress disorder, unspecified F43.10 and Major depressive disorder, recurrent, moderate F33.1 [facility] [address] [id number] [place] [address] 58193- 1146 Jul, [facility] [address] [id number] [place] [address] 28213- 7382 Jul, [facility] [address] [id number] [place] [address] 41038- 0784 Jul, Chronic pain G89.29 [facility] [address] [id number] [place] [address] 18411- 0916 June, Post-traumatic stress disorder, unspecified F43.10 and Major depressive disorder, recurrent, moderate F33.1 [facility] [id number] [address]- 5575 June, [facility] [id number] [place] [address] 21207- 9809 June, Chronic pain G89.29 [facility] [id number] [place] [address] 12283- 4434 June, Post-traumatic stress disorder, unspecified F43.10 and Major depressive disorder, recurrent, moderate F33.1 [facility] [id number] [address]- 4116 May, Post-traumatic stress disorder, unspecified F43.10 and Major depressive disorder, recurrent, moderate F33.1 [facility] [id number] [address]- 3499 15 May, 2015 [facility] [address] [place] [id number] [place] [address] 58022- 6355 08 May, 2015 [facility] [id number] [address]- 3627 May, [facility] [id number] [place] [address] 91090- 3838 Apr, [facility] [id number] [place] [address] 56435- 2706 Apr, Post-traumatic stress disorder, unspecified F43.10 and Sleep apnea, obstructive G47.33 [facility] [id number] [place] [address] 54046- 0074 Apr, [facility] [id number] [place] [address] 96513- 7117 Apr, Shoulder pain, left M25.512 [facility] [id number] [place] [address] 73671- 6487 Apr, Post-traumatic stress disorder, unspecified F43.10 and Major depressive disorder, recurrent, moderate F33.1 [facility] [id number] [address]- 1273 17 Apr, 2015 [facility] [id number] [place] [address] 69053- 4111 Apr, [facility] [address] [address]- 3896 Apr, [facility] [id number] [place] [address] 91085- 1880 07 Apr, 2015 Left shoulder pain M25.512 [facility] [id number] [address]- 3815 Mar, [facility] [address] [place] [id number] [place] [address] 31040- 5546 Mar, [place] [address] [place] [address] [id number] [place] [address] 00434- 7166 Mar, [place] [address] [place] [id number] [place], [place] [address]- 5635 Mar, Sleep apnea, obstructive G47.33 ; Obesity E66.9 ; Chronic pain G89.29 ; Hyperlipidemia E78.5 ; HTN (hypertension) I10 ; Blindness and low vision H54.10 ; Major depressive disorder, recurrent, moderate F33.1 and Anxiety F41.9 [place] [address] [place] [id number] [place] [address] 75976- 9754 Mar, [place] [address] [place] [id number] [place] [address] 26628- 6941 Mar, Post-traumatic stress disorder, unspecified F43.10 and Major depressive disorder, recurrent, moderate F33.1 [place] [address] [place] [id number] [place] [address] 96028- 9835 Mar, [place] [address] [place] [id number] [place] [address] 83499- 5973 Mar, HTN (hypertension) I10 ; Blindness and low vision H54.10 ; Obesity E66.9 ; Hyperlipidemia E78.5 ; Glaucoma H40.9 ; Chronic pain G89.29 and CAD (coronary artery disease) I25.10 [place] [address] [place] [id number] [place] [address] 57020- 4847 Feb, [place] [address] [place] [id number] [place] [address] 67486- 5700 Feb, Post-traumatic stress disorder, unspecified F43.10 ; Obesity E66.9 ; Sleep apnea, obstructive G47.33 and 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 [place] [address] [place] [id number] [place] [address] 22162- 0628 Feb, Post-traumatic stress disorder, unspecified F43.10 and Major depressive disorder, recurrent, moderate F33.1 [place] [address] [place] [id number] [place] [address] 96964- 2624 Feb, [place] [address] 13470- 7483 Feb, [place] [address] [place] [id number] [place] [address] 20766- 0290 Feb, HTN (hypertension) I10 ; Post-traumatic stress disorder, unspecified F43.10 ; Blindness and low vision H54.10 ; Obesity E66.9 ; Hyperlipidemia E78.5 ; Chronic pain G89.29 ; Glaucoma H40.9 ; Mitral valve prolapse I34.1 and Bilateral headaches R51 [place] [address] 38094- 9667 Feb, [place] [address] [place] [id number] [place] [address] 69525- 7333 Feb, Post-traumatic stress disorder, unspecified F43.10 and Major depressive disorder, recurrent, moderate F33.1 [place] [address] [place] [id number] [place] [address] 76834- 1418 Feb, [place] [address] 61450- 0960 Feb, [place] [address] [place] [id number] [place] [address] 51243- 7578 Jan, [place] [address] [place] [id number] [place] [address] 16673- 7660 Jan, [place] [address] [place] [id number] [place] [address] 65187- 5192 Jan, Obesity E66.9 ; HTN (hypertension) I10 ; Blindness and low vision H54.10 ; Major depressive disorder, recurrent, moderate F33.1 ; Glaucoma H40.9 ; Hyperlipidemia E78.5 ; Sleep apnea, obstructive G47.33 ; Chronic pain G89.29 ; Anxiety F41.9 ; Chronic tension headaches G44.229 and Cough R05 [place] [address] [place] [id number] [place] [address] 09078- 6963 Jan, [facility] [address] [place] [id number] [place] [address] 14791- 4590 Jan, [facility] [address] [place] [id number] [place] [address] 83824- 5681 Jan, Post-traumatic stress disorder, unspecified F43.10 ; Obesity E66.9 ; Sleep apnea, obstructive G47.33 and 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 [facility] [address] [place] [id number] [place] [address] 54535- 5602 Jan, [place] [address] [place] [id number] [place] [address] 02134- 4443 Jan, Post-traumatic stress disorder, unspecified F43.10 and Major depressive disorder, recurrent, moderate F33.1 [place] [address] [place] [id number] [place] [address] 15310- 3189 Dec, [place] [address] [place] [id number] [place] [address] 02331- 6732 Dec, Sleep apnea, obstructive G47.33 ; Obesity E66.9 ; Hyperlipidemia E78.5 ; Glaucoma H40.9 ; Chronic pain G89.29 ; HTN (hypertension ) I10 ; Blindness and low vision H54.10 ; Anxiety F41.9 and CAD (coronary artery disease) I25.10 [place] [address] [place] [id number] [place] [address] 26465- 6821 Nov, [place] [address] [place] [id number] [place] [address] 81947- 5169 Nov, [facility] [address] [id number] [place] [address] 81665- 4415 Nov, [facility] [id number] [place] [address] 82225- 7185 Nov, [place] [address] [place] [id number] [place] [address] 85803- 2716 Nov, [facility] [address] [id number] [place] [address] 60598- 7575 Nov, Encounter for immunization Z23 ; Sleep apnea, obstructive G47.33 ; Obesity E66.9 ; Hyperlipidemia E78.5 ; Glaucoma H40.9 ; Chronic pain G89.29 ; Anxiety F41.9 ; Chronic tension headaches G44.229 and HTN (hypertension ) I10 [facility] [address] 18555- 4647 Nov, [facility] [address] 63130- 8311 Nov, [facility] [address] 74837- 5953 Nov, Dizziness R42 [facility] [address] 85181- 3531 Nov, [facility] [address] 09639- 9573 Oct, [facility] [address] 34261- 8957 Oct, [facility] [address] 32738- 1442 Oct, [facility] [id number] [place] [address] 57934- 4677 Oct, [facility] [address] 35921- 3564 Oct, Dizziness 780.4 ; Essential hypertension 401.9 ; Obesity 278.00 ; Hyperlipidemia 272.4 ; Chronic pain 338.29 ; Glaucoma 365.9 and Anxiety 300.00 [facility] [id number] [place] [address] 65509- 7064 Oct, Essential hypertension 401.9 ; Hyperlipidemia 272.4 ; Glaucoma 365.9 ; Obesity 278.00 ; Chronic pain 338.29 and Allergy to insects V15.06 [facility] [id number] [address]- 4065 Sep, [facility] [address] [facility] [id number] [place] [address]- 3094 Sep, [facility] [address] [facility] [id number] [place] [address]- 2962 Sep, [facility] [address] [facility] [id number] [address]- 5661 Sep, [facility] [address] [facility] [id number] [address]- 2996 Aug, Essential hypertension 401.9 ; Obesity 278.00 ; Hyperlipidemia 272.4 ; Glaucoma 365.9 ; Lipoma 214.9 ; Mitral valve prolapse 424.0 ; Angina at rest 413.9 ; Lymphedema 457.1 and Chronic pain 338.29 IMMUNIZATIONS No Known Immunizations SOCIAL HISTORY Never Assessed REASON FOR VISIT PLAN OF CARE VITAL SIGNS MEDICATIONS Unknown [...]
--- OUTSIDE RECORDS SUMMARY | 2018-02-04 14:22 | XMS REPORT ---
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 Name Role Phone ALENA ÁLVAREZ Unavailable PROBLEMS Type Condition ICD9-CM Code [id number] Code Onset Dates Condition Status SNOMED Code Problem Hyperlipidemia E78.5 Active 27769526 Problem Arrhythmia as indication for cardiac pacemaker replacement I49.9 Active 31270776 Problem Sleep apnea, obstructive G47.33 Active 76705947 Problem Primary insomnia F51.01 Active 3317160 Problem Chronic pain G89.29 Active 95147842 Problem Morbid (severe) obesity due to excess calories E66.01 Active 079719879 Problem Body mass index (BMI) of 40.0-44.9 in adult Z68.41 Active 055605240 Problem Other male erectile dysfunction N52.8 Active 426229026 Problem Supraventricular tachycardia I47.1 Active 7654775 Problem Sarcoidosis D86.9 Active 21396465 Problem HTN (hypertension) I10 Active 67710348 Problem Blindness and low vision H54.10 Active 618296344 Problem Myocarditis, unspecified chronicity, 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 Active 99800457 Problem Migraine without aura and without status migrainosus, not intractable G43.009 Active 835863370 Problem 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 Active 621508836 Problem Problems related to release from mcfp Z65.2 Active [id number] Problem Chronic pain syndrome G89.4 Active 988072630 Problem Major depressive disorder, recurrent, moderate F33.1 Active 02040095 Problem 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 Active 98113243 Problem Chronic tension headaches G44.229 Active 291964897 Problem Anxiety F41.9 Active 20659386 Problem Post-traumatic stress disorder, chronic F43.12 Active 667931797 Problem Environmental allergies Z91.09 Active 626189946 Problem Mitral valve prolapse I34.1 Active 937585584 Problem CAD (coronary artery disease) I25.10 Active 36353250 ALLERGIES No Information ENCOUNTERS Encounter Location Date Diagnosis [facility] [id number] [place] [address] 92583- 4718 Nov, [facility] [address] 62931- 9570 Oct, [facility] [address] 41253- 4196 Oct, [place] [address] 52311- 1887 Oct, Left leg pain M79.605 [place] [address] 89340- 0714 04 Oct, 2017 Post-traumatic stress disorder, unspecified F43.10 ; Major depressive disorder, recurrent, moderate F33.1 and Problems related to release from mcfp Z65.2 [place] [address] 66126- 4317 Sep, Arrhythmia as indication for cardiac pacemaker replacement I49.9 [place] [address] 64793- 7522 Sep, [place] [address] 89054- 5482 Sep, HTN (hypertension) I10 [place] [id number] [place] [address] 26739- 9520 Sep, [place] [address] 72618- 2330 Sep, Body mass index (BMI) of 40.0-44.9 in adult Z68.41 ; Chronic pain G89.29 and Supraventricular tachycardia I47.1 [facility] [id number] [place] [address] 20543- 2417 Sep, [facility] [address] 44963- 3546 13 Sep, 2017 Sarcoidosis D86.9 [facility] [address] [address] 5296 Sep, Sarcoidosis D86.9 [facility] [id number] [place] [address] 22126- 6266 Sep, [facility] [id number] [place] [address] 98218- 9446 Sep, [facility] [id number] [place] [address] 76144- 0932 Sep, [facility] [id number] [place] [address] 60324- 7531 Sep, [facility] [id number] [place] [address] 64701- 3257 Sep, Left leg pain M79.605 [facility] [id number] [place] [address] 56469- 0558 Sep, HTN (hypertension) I10 [facility] [address] [place] [address] 50947- 1826 Sep, [facility] [id number] [place] [address] 84498- 5278 Sep, Post-traumatic stress disorder, unspecified F43.10 ; Major depressive disorder, recurrent, moderate F33.1 and Problems related to release from mcfp Z65.2 [facility] [address] [place] [address] 29513- 0916 Sep, [facility] [address], [place] [address] 2544 Aug, [facility] [id number] [place] [address] 94435- 3358 Aug, Sarcoidosis D86.9 [facility] [address], [place] [address] 2546 Aug, Sarcoidosis D86.9 [facility] [id number] [place] [address] 52773- 8902 30 Aug, 2017 HTN (hypertension) I10 [place] [id number] [place] [address] 00418- 9621 18 Aug, 2017 Post-traumatic stress disorder, unspecified F43.10 ; Major depressive disorder, recurrent, moderate F33.1 and Problems related to release from mcfp Z65.2 [place] [address] 50689- 0769 11 Aug, 2017 [place] [address] 36890- 4970 Aug, Left leg pain M79.605 [place] [address] 95593- 9125 26 Jul, 2017 Post-traumatic stress disorder, chronic F43.12 ; Anxiety F41.9 ; Problems related to release from mcfp Z65.2 and BMI 40.0-44.9, adult Z68.41 [place] [address] 81874- 6391 20 Jul, 2017 HTN (hypertension) I10 ; Body mass index (BMI) of 40.0-44.9 in adult Z68.41 ; Acute swimmer''s ear of both sides H60.333 and Chronic pain G89.29 [place] [id number] [place] [address] 60061- 7789 19 Jul, 2017 Glaucoma H40.9 [place] [id number] [place] [address] 88538- 2127 14 Jul, 2017 [place] [id number] [place] [address] 85999- 3833 13 Jul, 2017 Sarcoidosis D86.9 [place] [address] 56546- 3131 Jul, Left leg pain M79.605 [place] [address] 55318- 8387 12 Jul, 2017 Sarcoidosis D86.9 [place] [address] [address]- 0315 Jul, Post-traumatic stress disorder, unspecified F43.10 ; Major depressive disorder, recurrent, moderate F33.1 and Problems related to release from mcfp Z65.2 [facility] [address] [address] 12[address] June, [facility] [id number] [place] [address] 53875 -5938 June, Sore throat J02.9 and BMI 40.0-44.9, adult Z68.41 [facility] [id number] [place] [address] 77676- 4748 June, [facility] [id number] [place] [address] 42888- 2567 June, [facility] [id number] [place] [address] 01038- 7416 June, [facility] [id number] [place] [address] 00632- 1127 June, Left leg pain M79.605 [facility] [id number] [place] [address] 87300- 1174 June, Sarcoidosis D86.9 [facility] [id number] [address]- 7951 June, [facility] [id number] [place] [address] 28929- 5830 June, [facility] [address], [place] [address]- 4727 June, Left leg pain M79.605 [facility] [address] [address]- 0611 May, [facility] [address] [address]- 7918 May, [facility] [address] [address]- 7131 May, [facility] [id number] [place] [address] 43501- 9932 May, Left leg pain M79.605 [facility] [address] [place] [address] 80559- 7053 May, Post-traumatic stress disorder, unspecified F43.10 ; Major depressive disorder, recurrent, moderate F33.1 and Problems related to release from mcfp Z65.2 [place] [id number] [place] [address] 82921- 5961 May, Chronic pain G89.29 ; Anxiety F41.9 ; Chest pain, unspecified type R07.9 and BMI 40.0-44.9, adult Z68.41 [place] [id number] [place] [address] 65233- 0512 30 Apr, 2017 [place] [id number] [place] [address] 13167- 6783 Apr, Left leg pain M79.605 [place] [id number] [place] [address] 85628- 0975 27 Apr, 2017 Post-traumatic stress disorder, unspecified F43.10 ; Problems related to release from mcfp Z65.2 ; Anxiety F41.9 and BMI 40.0-44.9 , adult Z68.41 [place] [id number] [place] [address] 60299- 3695 Apr, [place] [id number] [place] [address] 87861- 5084 Apr, Left leg pain M79.605 [place] [id number] [place] [address] 28955- 2965 Apr, Post-traumatic stress disorder, unspecified F43.10 ; Major depressive disorder, recurrent, moderate F33.1 and Problems related to release from mcfp Z65.2 [place] [address] 79515- 1808 Apr, [facility] [address] 75624- 7617 12 Apr, 2017 Chronic pain G89.29 ; 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 [address] 72158 -7646 Apr, Sore throat J02.9 and BMI 40.0-44.9, adult Z68.[address] 78217- 6642 02 Apr, 2017 Left leg pain M79.605 [facility] [address] [id number] Mar, Dental examination Z01.20 [place] [address] 52286- 8382 Mar, [facility] [address] [place] [address] 44173 -4738 Mar, Cough R05 ; Viral gastroenteritis A08.4 and BMI 40.0-44.9, adult Z68.41 [place] [address] 60415- 4378 Mar, Left leg pain M79.605 [place] [address] 37892- 5772 06 Mar, 2017 Post-traumatic stress disorder, unspecified F43.10 ; Major depressive disorder, recurrent, moderate F33.1 and Problems related to release from mcfp Z65.2 [place] [address] 54756- 5884 Feb, Left leg pain M79.605 [place] [address] 01623- 4569 Feb, [facility] [id number] [place] [address] 41556- 0640 Feb, BMI 40.0-44.9, adult Z68.41 ; Chronic pain syndrome G89.4 ; Migraine without aura and without status migrainosus, not intractable G43.009 ; Mitral valve prolapse I34.1 and 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 [place] [address] 47003- 2141 Feb, Post-traumatic stress disorder, chronic F43.12 ; Anxiety F41.9 ; Problems related to release from mcfp Z65.2 and BMI 40.0-44.9, adult Z68.41 [place] [address] 62348- 1368 Feb, Post-traumatic stress disorder, unspecified F43.10 ; Major depressive disorder, recurrent, moderate F33.1 and Problems related to release from mcfp Z65.2 [place] [id number] [place] [address] 35762- 3996 Feb, Left leg pain M79.605 [place] [address] 96325- 6828 Jan, Post-traumatic stress disorder, unspecified F43.10 ; Major depressive disorder, recurrent, moderate F33.1 and Problems related to release from mcfp Z65.2 [place] [id number] [place] [address] 08587- 1033 Jan, [place] [id number] [place] [address] 13369- 8292 Jan, [place] [id number] [place] [address] 41839- 9265 Jan, Anxiety F41.9 [facility] [id number] [place] [address] 11544- 8160 Jan, Left leg pain M79.605 [place] [address] 30097- 1878 Dec, Left leg pain M79.605 [facility] [address] [place] [address] 09201- 1155 Dec, [facility] [id number] [place] [address] 52637- 0458 Dec, Post-traumatic stress disorder, unspecified F43.10 ; Major depressive disorder, recurrent, moderate F33.1 and Problems related to release from mcfp Z65.2 [facility] [id number] [place] [address] 45625- 4596 Nov, Chronic pain G89.29 and Anxiety F41.9 [place] [id number] [place] [address] 68604- 1155 Nov, Chronic pain G89.29 and Anxiety F41.9 [facility] [id number] [place] [address] 32354- 2529 16 Nov, 2016 Post-traumatic stress disorder, unspecified F43.10 ; Major depressive disorder, recurrent, moderate F33.1 and Problems related to release from mcfp Z65.2 [facility] [id number] [place] [address] 84674- 9369 09 Nov, 2016 Other abnormal findings in specimens from other organs, systems and tissues R89.8 ; Other male erectile dysfunction N52.8 ; Body mass index (BMI) of 40.0-44.9 in adult Z68.41 and Morbid (severe) obesity due to excess calories E66.01 [facility] [id number] [place] [address] 01297- 7049 02 Nov, 2016 Post-traumatic stress disorder, unspecified F43.10 ; Major depressive disorder, recurrent, moderate F33.1 and Problems related to release from mcfp Z65.2 [facility] [address] [place] [address] [id number] Oct, Dental examination Z01.20 [facility] [address] [place] [address] 64765- 0800 Oct, [place] [address] [place] [address] 04452- 4802 28 Oct, 2016 Encounter for immunization Z23 [place] [address] 59726- 8898 Oct, Chronic pain G89.29 ; Anxiety F41.9 ; Arrhythmia as indication for cardiac pacemaker replacement I49.9 and Glaucoma H40.9 [place] [id number] [place] [address] 67968- 0019 Oct, Anxiety F41.9 ; Post-traumatic stress disorder, chronic F43.12 and Problems related to release from mcfp Z65.2 [place] [id number] [place] [address] 67137- 5462 07 Oct, 2016 Post-traumatic stress disorder, unspecified F43.10 ; Major depressive disorder, recurrent, moderate F33.1 and Problems related to release from mcfp Z65.2 [place] [id number] [place] [address] 81519- 1577 Sep, Chronic pain G89.29 and Anxiety F41.9 [place] [id number] [place] [address] 29262- 0363 Sep, Post-traumatic stress disorder, unspecified F43.10 ; Major depressive disorder, recurrent, moderate F33.1 and Problems related to release from mcfp Z65.2 [place] [id number] [place] [address] 49424- 0485 Sep, Post-traumatic stress disorder, unspecified F43.10 ; Major depressive disorder, recurrent, moderate F33.1 and Problems related to release from mcfp Z65.2 [place] [id number] [place] [address] 51890- 4852 Sep, Chronic pain G89.29 [facility] [id number] [place] [address] 32554- 5617 Aug, Dental caries, unspecified K02.9 [place] [id number] [place] [address] 42205- 3781 Aug, Sleep apnea, obstructive G47.33 ; Obesity E66.9 ; Chronic pain G89.29 ; HTN (hypertension) I10 ; Major depressive disorder, recurrent, moderate F33.1 ; Anxiety F41.9 ; Chronic tension headaches G44.229 ; Mitral valve prolapse I34.1 ; Arrhythmia as indication for cardiac pacemaker replacement I49.9 ; Dental caries, unspecified K02.9 ; Primary insomnia F51.01 and Hyperlipidemia E78.5 [place] [id number] [place] [address] 01800- 4460 Aug, Post-traumatic stress disorder, unspecified F43.10 ; Major depressive disorder, recurrent, moderate F33.1 and Problems related to release from mcfp Z65.2 [place] [id number] [place] [address] 11236- 4171 Aug, Dental examination Z01.20 [facility] [address] [id number] Aug, Dental examination Z01.20 [facility] [id number] [place] [address] 84943- 6959 Aug, Post-traumatic stress disorder, unspecified F43.10 ; Major depressive disorder, recurrent, moderate F33.1 and Problems related to release from mcfp Z65.2 [place] [id number] [place] [address] 17181- 9336 Aug, Chronic pain G89.29 and Primary insomnia F51.01 [facility] [id number] [place] [address] 25764- 5486 Jul, [facility] [id number] [place] [address] 52383- 6408 Jul, [place] [id number] [place] [address] 73056- 6804 Jul, Nausea R11.0 [facility] [id number] [place] [address] 03172- 7969 29 Abraham, 2017 Arrhythmia as indication for cardiac pacemaker replacement I49.9 [place] [address] [place] [address] 80921- 2578 13 Jul, 2016 Post-traumatic stress disorder, unspecified F43.10 ; Major depressive disorder, recurrent, moderate F33.1 and Problems related to release from mcfp Z65.2 [place] [id number] [place] [address] 22910- 4981 09 Jul, 2016 Anxiety F41.9 [place] [address] 59123- 3033 08 Jul, 2016 Chronic pain G89.[address] 35479- 8610 Jul, Sleep apnea, obstructive G47.33 ; Hyperlipidemia E78.5 ; Chronic pain G89.29 ; Blindness and low vision H54.10 ; Major depressive disorder, recurrent, moderate F33.1 ; Anxiety F41.9 ; Mitral valve prolapse I34.1 ; Arrhythmia as indication for cardiac pacemaker replacement I49.9 ; Primary insomnia F51.01 ; Bilateral headaches R51 and Environmental allergies Z91.09 [place] [id number] [place] [address] 67298- 7002 Jul, Post-traumatic stress disorder, unspecified F43.10 ; Major depressive disorder, recurrent, moderate F33.1 and Problems related to release from mcfp Z65.2 [place] [id number] [place] [address] 94260- 1349 June, Post-traumatic stress disorder, chronic F43.12 ; Anxiety F41.9 ; Problems related to release from mcfp Z65.2 ; Sleep apnea, obstructive G47.33 and Primary insomnia F51.01 [place] [id number] [place] [address] 08630- 8653 June, [place] [id number] [place] [address] 55240- 7200 June, [place] [id number] [place] [address] 54257- 2161 June, [place] [address] [place] [address] 48998- 3326 June, Chronic pain G89.29 [place] [id number] [place] [address] 53014- 6291 June, Chronic pain G89.29 [place] [address] [place] [address] 19172- 9978 June, Lipoma of left lower extremity D17.24 ; Open wound T14.8 and Swelling of left lower extremity M79.89 [place] [id number] [place] [address] 74346- 7322 June, Post-traumatic stress disorder, unspecified F43.10 ; Major depressive disorder, recurrent, moderate F33.1 and Problems related to release from mcfp Z65.2 [place] [id number] [place] [address] 84362- 9649 May, Lipoma of left lower extremity D17.24 ; Major depressive disorder, recurrent, moderate F33.1 ; Sleep apnea, obstructive G47.33 ; Hyperlipidemia E78.5 ; Obesity E66.9 ; HTN (hypertension) I10 ; Glaucoma H40.9 ; CAD (coronary artery disease) I25.10 ; Chronic tension headaches G44.229 ; Chronic pain G89.29 ; Anxiety F41.9 ; Nausea R11.0 and Primary insomnia F51.01 [place] [address] [place] [address] 42073- 8816 May, [place] [address] [place] [address] 67267- 1045 May, Chronic pain G89.29 [place] [id number] [place] [address] 02216- 5292 May, [place] [id number] [place] [address] 18413- 3079 Apr, Post-traumatic stress disorder, unspecified F43.10 ; Major depressive disorder, recurrent, moderate F33.1 and Problems related to release from mcfp Z65.2 [place] [address] [address]- 5440 Apr, Primary insomnia F51.01 ; Post-traumatic stress disorder, chronic F43.12 and Problems related to release from mcfp Z65.2 [place] [id number] [place] [address] 08769- 9771 17 Apr, 2016 Post-traumatic stress disorder, unspecified F43.10 ; Major depressive disorder, recurrent, moderate F33.1 and Problems related to release from mcfp Z65.2 [place] [id number] [place] [address] 38030- 7553 16 Apr, 2016 [place] [id number] [place] [address] 41326- 4866 Apr, Sleep apnea, obstructive G47.33 ; Chronic pain G89.29 ; HTN (hypertension) I10 ; Mitral valve prolapse I34.1 ; Shoulder pain, left M25.512 ; Arrhythmia as indication for cardiac pacemaker replacement I49.9 ; Glaucoma H40.9 ; Bilateral headaches R51 ; Environmental allergies Z91.09 ; Primary insomnia F51.01 and Nausea R11.0 [place] [address] [place] [address] 80200- 9247 Apr, [place] [address] [place] [address] 46208- 1994 Apr, [place] [id number] [place] [address] 21846- 1987 Apr, Post-traumatic stress disorder, unspecified F43.10 ; Major depressive disorder, recurrent, moderate F33.1 and Problems related to release from mcfp Z65.2 [place] [address] [place] [address] 21704- 5531 Apr, HTN (hypertension) I10 [place] [id number] [place] [address] 51065- 3757 Apr, HTN (hypertension) I10 [place] [address] [place] [address] 52020- 6336 14 Mar, 2016 Chronic pain G89.29 ; Primary insomnia F51.01 and Problems related to release from mcfp Z65.2 [place] [id number] [place] [address] 71017- 1524 07 Mar, 2016 Post-traumatic stress disorder, unspecified F43.10 ; Major depressive disorder, recurrent, moderate F33.1 and Problems related to release from [facility] Z65.2 [place] [address] [place] [id number] [place] [address] [phone] Feb, Post-traumatic stress disorder, unspecified F43.10 ; Major depressive disorder, recurrent, moderate F33.1 and Problems related to release from [facility] Z65.2 [place] [address] [place] [id number] [place] [address] [phone] Feb, Chronic tension headaches G44.229 [place] [id number] [place] [address] 99586- 4356 Feb, Sleep apnea, obstructive G47.33 ; Obesity E66.9 ; Hyperlipidemia E78.5 ; Glaucoma H40.9 ; Chronic pain G89.29 ; HTN (hypertension ) I10 ; Blindness and low vision H54.10 ; 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 ; Chronic tension headaches G44.229 ; Cough R05 ; CAD (coronary artery disease) I25.10 ; Problems related to release from [facility] Z65.2 ; Arrhythmia as indication for cardiac pacemaker replacement I49.9 and Primary insomnia F51.01 [facility] [facility] [address] [place] [address] 47500- 5412 17 Feb, 2016 Post-traumatic stress disorder, unspecified F43.10 and Chronic pain G89.29 [facility] [facility] [address] [place] [id number] [place] [address] 20158- 8627 Feb, [facility] [address] [place] [address] [id number] Feb, Dental caries K02.9 [place] [address] [place] [id number] [place] [address] 83580- 1250 Feb, [address] 30285- 9929 Feb, Post-traumatic stress disorder, unspecified F43.10 ; Major depressive disorder, recurrent, moderate F33.1 and Problems related to release from [facility] Z65.[address] 89302- 5953 Jan, Sleep apnea, obstructive G47.33 and Chronic pain G89.[address] 08124- 8317 Jan, [address] 61213- 4695 Jan, Dental examination Z01.[address] 82828- 5954 Jan, [place] [facility] [address] 22562- 0128 Jan, [address] 94015- 6493 Dec, Post-traumatic stress disorder, unspecified F43.10 ; Major depressive disorder, recurrent, moderate F33.1 and Problems related to release from [facility] Z65.[address] 98903- 3168 Dec, Encounter for immunization Z23 ; Problems related to release from [facility] Z65.2 ; Sleep apnea, obstructive G47.33 and Post-traumatic stress disorder, chronic F43.[address] 86102- 5888 Dec, Sleep apnea, obstructive G47.33 ; Hyperlipidemia E78.5 ; Chronic pain G89.29 ; Glaucoma H40.9 ; HTN (hypertension) I10 ; Post-traumatic stress disorder, unspecified F43.10 ; Anxiety F41.9 ; Chronic tension headaches G44.229 ; Mitral valve prolapse I34.1 and CAD (coronary artery disease) I25.10 [facility] [facility] [address] [id number] [place] [address] 84941- 7832 Dec, Post-traumatic stress disorder, unspecified F43.10 ; Major depressive disorder, recurrent, moderate F33.1 and Problems related to release from [facility] Z65.2 [facility] [address] [id number] [place] [address] 11783- 0618 Nov, Chronic pain G89.29 [place] [address] 60359- 6648 Nov, Post-traumatic stress disorder, unspecified F43.10 ; Major depressive disorder, recurrent, moderate F33.1 and Problems related to release from [facility] Z65.2 [facility] [id number] [place] [address] 22191- 9092 Oct, [facility] [facility] [address] 50442- 5020 Oct, [facility] [facility] [id number] [place] [address] 10667- 3536 16 Oct, 2015 Post-traumatic stress disorder, unspecified F43.10 ; Major depressive disorder, recurrent, moderate F33.1 and Problems related to release from [facility] Z65.2 [facility] [id number] [place] [address] 25474- 8461 08 Oct, 2015 [facility] [id number] [place] [address] 44946- 9802 07 Oct, 2015 Environmental allergies Z91.09 ; Cough R05 and 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 [facility] [facility] [address] 18572- 8733 Sep, [facility] [facility] [address] [id number] [place] [address] 26900- 5171 Sep, Post-traumatic stress disorder, unspecified F43.10 ; Major depressive disorder, recurrent, moderate F33.1 and Problems related to release from [facility] Z65.2 [place] [address] [place] [address] 02397- 1273 Sep, Chronic pain G89.29 [facility] [address] [id number] [place] [address] 51466- 8919 Sep, Pain in left shoulder M25.512 ; Pain in right shoulder M25.511 and Other chronic pain G89.29 [facility] [facility] [id number] [place] [address] 62168- 0468 Sep, [facility] [id number] [place] [address] 47370- 5918 Sep, [facility] [id number] [place] [address] 95144- 5661 Sep, [facility] [id number] [place] [address] [id number] Aug, Dental examination Z01.20 [place] [id number] [place] [address] 94617- 0608 Aug, Post-traumatic stress disorder, unspecified F43.10 ; Open- angle glaucoma of both eyes H40.10X0 and Problems related to release from [facility] Z65.2 [place] [address] [place] [address] 44872- 4140 Aug, [facility] [id number] [place] [address] 43851- 2569 Aug, Sleep apnea, obstructive G47.33 ; Obesity E66.9 ; Hyperlipidemia E78.5 ; Bilateral headaches R51 ; HTN (hypertension) I10 ; Post- traumatic stress disorder, unspecified F43.10 ; Anxiety F41.9 ; Neuropathy G62.9 ; Glaucoma H40.9 and Chronic pain G89.29 [facility] [id number] [place] [address] [id number] Aug, Encounter for dental examination Z01.20 [facility] [id number] [place] [address] 49782- 8042 Aug, Post-traumatic stress disorder, unspecified F43.10 ; Major depressive disorder, recurrent, moderate F33.1 and Problems related to release from [facility] Z65.2 [facility] [address] [address] 0077 Aug, [facility] [address] [address]- 8488 Jul, [facility] [id number] [place] [address] 42612- 9053 Jul, Post-traumatic stress disorder, unspecified F43.10 and Major depressive disorder, recurrent, moderate F33.1 [facility] [id number] [place] [address] 80173- 2498 Jul, [facility] [id number] [place] [address] 73534- 7105 Jul, [facility] [id number] [place] [address] 28516- 5250 Jul, Chronic pain G89.29 [facility] [id number] [place] [address] 80226- 4230 June, Post-traumatic stress disorder, unspecified F43.10 and Major depressive disorder, recurrent, moderate F33.1 [facility] [address] [address]- 6384 June, [facility] [address] [place] [address] 11075- 1148 June, Chronic pain G89.29 [facility] [address] [place] [address] 08632- 5771 June, Post-traumatic stress disorder, unspecified F43.10 and Major depressive disorder, recurrent, moderate F33.1 [facility] [address] [address]- 9868 May, Post-traumatic stress disorder, unspecified F43.10 and Major depressive disorder, recurrent, moderate F33.1 [facility] [address] [address]- 1620 15 May, 2015 [facility] [id number] [place] [address] 51199- 8889 08 May, 2015 [facility] [address], [place] [address]- 0359 May, [facility] [id number] [place] [address] 29473- 3705 Apr, [facility] [id number] [place] [address] 32916- 9621 Apr, Post-traumatic stress disorder, unspecified F43.10 and Sleep apnea, obstructive G47.33 [facility] [address] [place] [address] 57786- 9881 Apr, [facility] [id number] [place] [address] 03964- 9268 Apr, Shoulder pain, left M25.512 [facility] [id number] [place] [address] 42845- 9995 Apr, Post-traumatic stress disorder, unspecified F43.10 and Major depressive disorder, recurrent, moderate F33.1 [facility] [address] [address]- 5205 17 Apr, 2015 [facility] [address] [place] [address] 34417- 9629 Apr, [facility] [address] [address]- 9017 Apr, [facility] [id number] [place] [address] 49181- 1558 07 Apr, 2015 Left shoulder pain M25.512 [facility] [address] [address]- 0110 Mar, [facility] [id number] [place] [address] 34038- 5177 Mar, [facility] [id number] [place] [address] 20095- 9475 Mar, [place] [id number] [place] [address] Mar, Sleep apnea, obstructive G47.33 ; Obesity E66.9 ; Chronic pain G89.29 ; Hyperlipidemia E78.5 ; HTN (hypertension) I10 ; Blindness and low vision H54.10 ; Major depressive disorder, recurrent, moderate F33.1 and Anxiety F41.9 [place] [address] [id number] [place] [address] 29882- 2167 Mar, [facility] [facility] [id number] [place] [address] 23914- 4292 Mar, Post-traumatic stress disorder, unspecified F43.10 and Major depressive disorder, recurrent, moderate F33.1 [place] [id number] [place] [address] 55749- 6171 Mar, [facility] [id number] [place] [address] 66019- 7849 Mar, HTN (hypertension) I10 ; Blindness and low vision H54.10 ; Obesity E66.9 ; Hyperlipidemia E78.5 ; Glaucoma H40.9 ; Chronic pain G89.29 and CAD (coronary artery disease) I25.10 [place] [id number] [place] [address] 19329- 5136 Feb, [facility] [id number] [place] [address] 49571- 0824 Feb, Post-traumatic stress disorder, unspecified F43.10 ; Obesity E66.9 ; Sleep apnea, obstructive G47.33 and 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 [place] [address] [id number] [place] [address] 61198- 6226 Feb, Post-traumatic stress disorder, unspecified F43.10 and Major depressive disorder, recurrent, moderate F33.1 [place] [id number] [place] [address] 24305- 8912 Feb, [place] [address] 98600- 5075 Feb, [place] [address] [address] [id number] [place] [address] 82048- 2132 Feb, HTN (hypertension) I10 ; Post-traumatic stress disorder, unspecified F43.10 ; Blindness and low vision H54.10 ; Obesity E66.9 ; Hyperlipidemia E78.5 ; Chronic pain G89.29 ; Glaucoma H40.9 ; Mitral valve prolapse I34.1 and Bilateral headaches R51 [place] [address] 92592- 2736 Feb, [facility] [address] [id number] [place] [address] 71754- 5636 Feb, Post-traumatic stress disorder, unspecified F43.10 and Major depressive disorder, recurrent, moderate F33.1 [place] [address] [address] [id number] [place] [address] 73599- 7100 Feb, [place] [address] 18010- 5588 Feb, [facility] [address] [id number] [place] [address] 75105- 2781 Jan, [facility] [address] [address] [id number] [place] [address] 01937- 1509 Jan, [place] [address] [address] [id number] [place] [address] 75722- 2208 Jan, Obesity E66.9 ; HTN (hypertension) I10 ; Blindness and low vision H54.10 ; Major depressive disorder, recurrent, moderate F33.1 ; Glaucoma H40.9 ; Hyperlipidemia E78.5 ; Sleep apnea, obstructive G47.33 ; Chronic pain G89.29 ; Anxiety F41.9 ; Chronic tension headaches G44.229 and Cough R05 [place] [address] [id number] [place] [address] 63462- 1680 Jan, [facility] [id number] [place] [address] 79454- 5431 Jan, [facility] [id number] [place] [address] 24637- 9689 Jan, Post-traumatic stress disorder, unspecified F43.10 ; Obesity E66.9 ; Sleep apnea, obstructive G47.33 and 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 [facility] [id number] [place] [address] 80871- 8266 Jan, [facility] [id number] [place] [address] 64737- 5120 Jan, Post-traumatic stress disorder, unspecified F43.10 and Major depressive disorder, recurrent, moderate F33.1 [place] [address] [id number] [place] [address] 94956- 2700 Dec, [facility] [facility] [address] [id number] [place] [address] 21923- 5467 Dec, Sleep apnea, obstructive G47.33 ; Obesity E66.9 ; Hyperlipidemia E78.5 ; Glaucoma H40.9 ; Chronic pain G89.29 ; HTN (hypertension ) I10 ; Blindness and low vision H54.10 ; Anxiety F41.9 and CAD (coronary artery disease) I25.10 [place] [id number] [place] [address] 34960- 9653 Nov, [facility] [facility] [id number] [place] [address] 45095- 1383 Nov, [facility] [id number] [place] [address] 36862- 2322 Nov, [facility] [address] [place] [address] 76830- 1972 Nov, [facility] [id number] [place] [address] 88280- 3994 Nov, [facility] [id number] [place] [address] 12284- 7939 Nov, Encounter for immunization Z23 ; Sleep apnea, obstructive G47.33 ; Obesity E66.9 ; Hyperlipidemia E78.5 ; Glaucoma H40.9 ; Chronic pain G89.29 ; Anxiety F41.9 ; Chronic tension headaches G44.229 and HTN (hypertension ) I10 [facility] [address] 41137- 3837 Nov, [facility] [address] 94929- 2225 Nov, [facility] [address] 31346- 6029 Nov, Dizziness R42 [facility] [address] 45753- 6428 Nov, [facility] [address] 08877- 0975 Oct, [facility] [address] 81956- 5868 Oct, [facility] [address] 12918- 7582 Oct, [facility] [id number] [place] [address] 26331- 1102 Oct, [facility] [address] 23089- 4910 Oct, Dizziness 780.4 ; Essential hypertension 401.9 ; Obesity 278.00 ; Hyperlipidemia 272.4 ; Chronic pain 338.29 ; Glaucoma 365.9 and Anxiety 300.00 [facility] [id number] [place] [address] 06593- 0174 Oct, Essential hypertension 401.9 ; Hyperlipidemia 272.4 ; Glaucoma 365.9 ; Obesity 278.00 ; Chronic pain 338.29 and Allergy to insects V15.06 [facility] [address] [id number] [address]- 6194 Sep, [facility] [address] [facility] [id number] [address]- 8796 Sep, [facility] [address] [facility] [id number] [place] [address]- 3072 Sep, [facility] [address] [facility] [id number] [address]- 1982 Sep, [facility] [address] [facility] [id number] [address]- 4381 Aug, Essential hypertension 401.9 ; Obesity 278.00 ; Hyperlipidemia 272.4 ; Glaucoma 365.9 ; Lipoma 214.9 ; Mitral valve prolapse 424.0 ; Angina at rest 413.9 ; Lymphedema 457.1 and Chronic pain 338.29 IMMUNIZATIONS No Known Immunizations SOCIAL HISTORY Never Assessed REASON FOR VISIT Lab (walk-in) PLAN OF CARE VITAL SIGNS MEDICATIONS Unknown Medications RESULTS No Results PROCEDURES Procedure Date Ordered Result Body Site LAB NOT BILLED BY [facility] Sep 20, 2017 VENIPUNCT, ROUTINE* Sep 20, 2017 INSTRUCTIONS MEDICATIONS ADMINISTERED No Known Medications [...]
--- OUTSIDE RECORDS SUMMARY | 2018-02-04 14:23 | XMS REPORT ---
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 Name Role Phone ALENA ÁLVAREZ Unavailable PROBLEMS Type Condition ICD9-CM Code PQA03-VW Code Onset Dates Condition Status SNOMED Code Problem Hyperlipidemia E78.5 Active 24759101 Problem Arrhythmia as indication for cardiac pacemaker replacement I49.9 Active 77884612 Problem Sleep apnea, obstructive G47.33 Active 97982156 Problem Primary insomnia F51.01 Active 9260207 Problem Chronic pain G89.29 Active 16851764 Problem Morbid (severe) obesity due to excess calories E66.01 Active 833419450 Problem Body mass index (BMI) of 40.0-44.9 in adult Z68.41 Active 042802762 Problem Other male erectile dysfunction N52.8 Active 778338953 Problem Supraventricular tachycardia I47.1 Active 5659879 Problem Sarcoidosis D86.9 Active 08393928 Problem HTN (hypertension) I10 Active 54283656 Problem Blindness and low vision H54.10 Active 119204392 Problem Myocarditis, unspecified chronicity, 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 Active 77398773 Problem Migraine without aura and without status migrainosus, not intractable G43.009 Active 130490530 Problem 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 Active 969263477 Problem Problems related to [facility] Z65.2 Active [id number] Problem Chronic pain syndrome G89.4 Active 958426273 Problem Major depressive disorder, recurrent, moderate F33.1 Active 39291490 Problem 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 Active 46350934 Problem Chronic tension headaches G44.229 Active 353536032 Problem Anxiety F41.9 Active 87438115 Problem Post-traumatic stress disorder, chronic F43.12 Active 352268849 Problem Environmental allergies Z91.09 Active 299116865 Problem Mitral valve prolapse I34.1 Active 123114897 Problem CAD (coronary artery disease) I25.10 Active 32424660 ALLERGIES No Information ENCOUNTERS Encounter Location Date Diagnosis [facility] [id number] [place] [address] 45718- 4432 Nov, [facility] [address] 19839- 2740 Oct, [facility] [address] 92817- 6378 Oct, [place] [address] 04918- 5053 Oct, Left leg pain M79.605 [place] [address] 71641- 9186 04 Oct, 2017 Post-traumatic stress disorder, unspecified F43.10 ; Major depressive disorder, recurrent, moderate F33.1 and Problems related to [facility] Z65.2 [place] [address] 48264- 9066 Sep, Arrhythmia as indication for cardiac pacemaker replacement I49.9 [place] [address] 96219- 4065 Sep, [place] [address] 51433- 8084 Sep, HTN (hypertension) I10 [place] [id number] [place] [address] 64890- 6794 Sep, [place] [address] 98483- 5708 Sep, Body mass index (BMI) of 40.0-44.9 in adult Z68.41 ; Chronic pain G89.29 and Supraventricular tachycardia I47.1 [facility] [id number] [place] [address] 59017- 8852 Sep, [facility] [address] 21221- 7556 13 Sep, 2017 Sarcoidosis D86.9 [facility] [address] [address] 99[address] Sep, Sarcoidosis D86.9 [facility] [id number] [place] [address] 82201- 9686 Sep, [facility] [id number] [place] [address] 34492- 8606 Sep, [facility] [id number] [place] [address] 04426- 6050 Sep, [facility] [id number] [place] [address] 71982- 3891 Sep, [facility] [id number] [place] [address] 55425- 6494 Sep, Left leg pain M79.605 [facility] [id number] [place] [address] 56859- 8642 Sep, HTN (hypertension) I10 [facility] [id number] [place] [address] 17847- 1743 Sep, [facility] [id number] [place] [address] 50336- 0252 Sep, Post-traumatic stress disorder, unspecified F43.10 ; Major depressive disorder, recurrent, moderate F33.1 and Problems related to [facility] Z65.2 [facility] [id number] [place] [address] 68477- 9946 Sep, [facility] [id number] [address] 2543 Aug, [facility] [id number] [place] [address] 08040- 4510 Aug, Sarcoidosis D86.9 [facility] [address] [address] 2546 Aug, Sarcoidosis D86.9 [facility] [id number] [place] [address] 83832- 6261 30 Aug, 2017 HTN (hypertension) I10 [place] [id number] [place] [address] 51129- 5130 18 Aug, 2017 Post-traumatic stress disorder, unspecified F43.10 ; Major depressive disorder, recurrent, moderate F33.1 and Problems related to [facility] Z65.2 [place] [address] 32797- 0235 11 Aug, 2017 [place] [address] 14403- 5274 Aug, Left leg pain M79.605 [place] [address] 13769- 2961 26 Jul, 2017 Post-traumatic stress disorder, chronic F43.12 ; Anxiety F41.9 ; Problems related to [facility] Z65.2 and BMI 40.0-44.9, adult Z68.41 [place] [address] 92389- 0020 20 Jul, 2017 HTN (hypertension) I10 ; Body mass index (BMI) of 40.0-44.9 in adult Z68.41 ; Acute swimmer''s ear of both sides H60.333 and Chronic pain G89.29 [place] [id number] [place] [address] 86612- 1573 19 Jul, 2017 Glaucoma H40.9 [place] [id number] [place] [address] 03594- 7414 14 Jul, 2017 [place] [id number] [place] [address] 97026- 6116 13 Jul, 2017 Sarcoidosis D86.9 [place] [address] 55870- 6525 Jul, Left leg pain M79.605 [place] [address] 92451- 7819 12 Jul, 2017 Sarcoidosis D86.9 [place] [id number] [address] 6153 Jul, Post-traumatic stress disorder, unspecified F43.10 ; Major depressive disorder, recurrent, moderate F33.1 and Problems related to [facility] Z65.2 [facility] [id number] [address] 9647 June, [facility] [id number] [place] [address] 38506 -2579 June, Sore throat J02.9 and BMI 40.0-44.9, adult Z68.41 [facility] [id number] [place] [address] 03772- 3715 June, [facility] [id number] [place] [address] 88206- 8807 June, [facility] [id number] [place] [address] 15051- 0642 June, [facility] [id number] [place] [address] 26598- 4196 June, Left leg pain M79.605 [facility] [id number] [place] [address] 46947- 5910 June, Sarcoidosis D86.9 [facility] [id number] [address]- 5907 June, [facility] [id number] [place] [address] 62218- 7833 June, [facility] [address] [address]- 8539 June, Left leg pain M79.605 [facility] [id number] [address]- 8453 May, [facility] [address] [address]- 6165 May, [facility] [id number] [address]- 2422 May, [facility] [id number] [place] [address] 76446- 3817 May, Left leg pain M79.605 [facility] [address] [place] [address] 85311- 4611 May, Post-traumatic stress disorder, unspecified F43.10 ; Major depressive disorder, recurrent, moderate F33.1 and Problems related to [facility] Z65.2 [place] [id number] [place] [address] 63963- 2307 May, Chronic pain G89.29 ; Anxiety F41.9 ; Chest pain, unspecified type R07.9 and BMI 40.0-44.9, adult Z68.41 [place] [id number] [place] [address] 95285- 0209 30 Apr, 2017 [place] [id number] [place] [address] 27510- 1852 Apr, Left leg pain M79.605 [place] [id number] [place] [address] 25886- 2974 27 Apr, 2017 Post-traumatic stress disorder, unspecified F43.10 ; Problems related to [facility] Z65.2 ; Anxiety F41.9 and BMI 40.0-44.9 , adult Z68.41 [place] [id number] [place] [address] 44097- 8100 Apr, [place] [id number] [place] [address] 14151- 9983 Apr, Left leg pain M79.605 [place] [id number] [place] [address] 99925- 0659 Apr, Post-traumatic stress disorder, unspecified F43.10 ; Major depressive disorder, recurrent, moderate F33.1 and Problems related to release [facility] Z65.2 [place] [address] 28660- 0123 Apr, [facility] [address] 96984- 0864 12 Apr, 2017 Chronic pain G89.29 ; 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 ; Morbid (severe) obesity due to excess calories E66.01 ; Anxiety F41.9 and BMI 40.0-44.9, adult Z68.41 [facility] [address] 57760 -8206 Apr, Sore throat J02.9 and BMI 40.0-44.9, adult Z68.[address] 32208- 2495 02 Apr, 2017 Left leg pain M79.605 [facility] [address] [id number] Mar, Dental examination Z01.20 [place] [address] 40825- 1444 Mar, [facility] [address] [place] [address] 36380 -7941 Mar, Cough R05 ; Viral gastroenteritis A08.4 and BMI 40.0-44.9, adult Z68.41 [place] [address] 97557- 6138 Mar, Left leg pain M79.605 [place] [address] 16630- 2217 06 Mar, 2017 Post-traumatic stress disorder, unspecified F43.10 ; Major depressive disorder, recurrent, moderate F33.1 and Problems related to release [facility] Z65.2 [place] [address] 08662- 1403 Feb, Left leg pain M79.605 [place] [address] 18641- 7864 Feb, [facility] [id number] [place] [address] 09853- 8595 Feb, BMI 40.0-44.9, adult Z68.41 ; Chronic pain syndrome G89.4 ; Migraine without aura and without status migrainosus, not intractable G43.009 ; Mitral valve prolapse I34.1 and 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 [place] [address] 12072- 6092 Feb, Post-traumatic stress disorder, chronic F43.12 ; Anxiety F41.9 ; Problems related to release [facility] Z65.2 and BMI 40.0-44.9, adult Z68.41 [place] [address] 18374- 2924 Feb, Post-traumatic stress disorder, unspecified F43.10 ; Major depressive disorder, recurrent, moderate F33.1 and Problems related to release [facility] Z65.2 [place] [id number] [place] [address] 67532- 6186 Feb, Left leg pain M79.605 [place] [address] 89667- 8925 Jan, Post-traumatic stress disorder, unspecified F43.10 ; Major depressive disorder, recurrent, moderate F33.1 and Problems related to release [facility] Z65.2 [place] [id number] [place] [address] 00359- 4787 Jan, [place] [id number] [place] [address] 55799- 0874 Jan, [place] [id number] [place] [address] 96515- 5310 Jan, Anxiety F41.9 [facility] [id number] [place] [address] 22404- 3918 Jan, Left leg pain M79.605 [place] [address] 24500- 0579 Dec, Left leg pain M79.605 [facility] [id number] [place] [address] 22840- 9048 Dec, [facility] [id number] [place] [address] 81745- 9658 Dec, Post-traumatic stress disorder, unspecified F43.10 ; Major depressive disorder, recurrent, moderate F33.1 and Problems related to release [facility] Z65.2 [facility] [id number] [place] [address] 45986- 9557 Nov, Chronic pain G89.29 and Anxiety F41.9 [place] [id number] [place] [address] 68459- 5192 Nov, Chronic pain G89.29 and Anxiety F41.9 [facility] [id number] [place] [address] 49157- 7040 16 Nov, 2016 Post-traumatic stress disorder, unspecified F43.10 ; Major depressive disorder, recurrent, moderate F33.1 and Problems related to release [facility] Z65.2 [facility] [id number] [place] [address] 55583- 8006 09 Nov, 2016 Other abnormal findings in specimens from other organs, systems and tissues R89.8 ; Other male erectile dysfunction N52.8 ; Body mass index (BMI) of 40.0-44.9 in adult Z68.41 and Morbid (severe) obesity due to excess calories E66.01 [facility] [id number] [place] [address] 98592- 8596 02 Nov, 2016 Post-traumatic stress disorder, unspecified F43.10 ; Major depressive disorder, recurrent, moderate F33.1 and Problems related to release [facility] Z65.2 [facility] [address] [place] [address] [id number] Oct, Dental examination Z01.20 [facility] [address] [place] [address] 74759- 8323 Oct, [place] [address] [place] [address] 15800- 1888 28 Oct, 2016 Encounter for immunization Z23 [place] [address] 77131- 9881 Oct, Chronic pain G89.29 ; Anxiety F41.9 ; Arrhythmia as indication for cardiac pacemaker replacement I49.9 and Glaucoma H40.9 [place] [id number] [place] [address] 34830- 7455 Oct, Anxiety F41.9 ; Post-traumatic stress disorder, chronic F43.12 and Problems related to release [facility] Z65.2 [place] [id number] [place] [address] 38665- 6163 07 Oct, 2016 Post-traumatic stress disorder, unspecified F43.10 ; Major depressive disorder, recurrent, moderate F33.1 and Problems related to release [facility] Z65.2 [place] [id number] [place] [address] 28495- 7108 Sep, Chronic pain G89.29 and Anxiety F41.9 [place] [id number] [place] [address] 82355- 2904 Sep, Post-traumatic stress disorder, unspecified F43.10 ; Major depressive disorder, recurrent, moderate F33.1 and Problems related to release [facility] Z65.2 [place] [id number] [place] [address] 71854- 4812 Sep, Post-traumatic stress disorder, unspecified F43.10 ; Major depressive disorder, recurrent, moderate F33.1 and Problems related to release [facility] Z65.2 [place] [id number] [place] [address] 16034- 2054 Sep, Chronic pain G89.29 [place] [id number] [place] [address] 22998- 9908 Aug, Dental caries, unspecified K02.9 [place] [id number] [place] [address] 91207- 2627 Aug, Sleep apnea, obstructive G47.33 ; Obesity E66.9 ; Chronic pain G89.29 ; HTN (hypertension) I10 ; Major depressive disorder, recurrent, moderate F33.1 ; Anxiety F41.9 ; Chronic tension headaches G44.229 ; Mitral valve prolapse I34.1 ; Arrhythmia as indication for cardiac pacemaker replacement I49.9 ; Dental caries, unspecified K02.9 ; Primary insomnia F51.01 and Hyperlipidemia E78.5 [place] [id number] [place] [address] 29435- 7226 Aug, Post-traumatic stress disorder, unspecified F43.10 ; Major depressive disorder, recurrent, moderate F33.1 and Problems related to release [facility] Z65.2 [place] [id number] [place] [address] 13621- 6149 Aug, Dental examination Z01.20 [facility] [address] [id number] Aug, Dental examination Z01.20 [facility] [id number] [place] [address] 89482- 9381 Aug, Post-traumatic stress disorder, unspecified F43.10 ; Major depressive disorder, recurrent, moderate F33.1 and Problems related to release [facility] Z65.2 [place] [id number] [place] [address] 30365- 1391 Aug, Chronic pain G89.29 and Primary insomnia F51.01 [facility] [id number] [place] [address] 92517- 1609 Jul, [facility] [id number] [place] [address] 86039- 6246 Jul, [place] [id number] [place] [address] 97816- 5020 Jul, Nausea R11.0 [facility] [id number] [place] [address] 62939- 9124 29 Abraham, 2017 Arrhythmia as indication for cardiac pacemaker replacement I49.9 [place] [address] [place] [address] 99469- 4184 13 Jul, 2016 Post-traumatic stress disorder, unspecified F43.10 ; Major depressive disorder, recurrent, moderate F33.1 and Problems related to release [facility] Z65.2 [place] [id number] [place] [address] 61767- 5474 09 Jul, 2016 Anxiety F41.9 [place] [address] 35066- 6543 08 Jul, 2016 Chronic pain G89.[address] 09543- 1653 Jul, Sleep apnea, obstructive G47.33 ; Hyperlipidemia E78.5 ; Chronic pain G89.29 ; Blindness and low vision H54.10 ; Major depressive disorder, recurrent, moderate F33.1 ; Anxiety F41.9 ; Mitral valve prolapse I34.1 ; Arrhythmia as indication for cardiac pacemaker replacement I49.9 ; Primary insomnia F51.01 ; Bilateral headaches R51 and Environmental allergies Z91.09 [place] [id number] [place] [address] 03350- 2145 Jul, Post-traumatic stress disorder, unspecified F43.10 ; Major depressive disorder, recurrent, moderate F33.1 and Problems related to release [facility] Z65.2 [place] [id number] [place] [address] 31895- 0259 June, Post-traumatic stress disorder, chronic F43.12 ; Anxiety F41.9 ; Problems related to release [facility] Z65.2 ; Sleep apnea, obstructive G47.33 and Primary insomnia F51.01 [place] [id number] [place] [address] 39208- 5754 June, [place] [id number] [place] [address] 76428- 2608 June, [place] [id number] [place] [address] 22810- 9154 June, [place] [address] [place] [address] 37531- 4744 June, Chronic pain G89.29 [place] [id number] [place] [address] 81654- 8520 June, Chronic pain G89.29 [place] [address] [place] [address] 09143- 2962 June, Lipoma of left lower extremity D17.24 ; Open wound T14.8 and Swelling of left lower extremity M79.89 [place] [id number] [place] [address] 43158- 5356 June, Post-traumatic stress disorder, unspecified F43.10 ; Major depressive disorder, recurrent, moderate F33.1 and Problems related to [facility] Z65.2 [place] [id number] [place] [address] 77252- 8766 May, Lipoma of left lower extremity D17.24 ; Major depressive disorder, recurrent, moderate F33.1 ; Sleep apnea, obstructive G47.33 ; Hyperlipidemia E78.5 ; Obesity E66.9 ; HTN (hypertension) I10 ; Glaucoma H40.9 ; CAD (coronary artery disease) I25.10 ; Chronic tension headaches G44.229 ; Chronic pain G89.29 ; Anxiety F41.9 ; Nausea R11.0 and Primary insomnia F51.01 [place] [address] [place] [address] 21253- 9393 May, [place] [address] [place] [address] 17899- 6066 May, Chronic pain G89.29 [place] [id number] [place] [address] 20149- 7912 May, [place] [id number] [place] [address] 92448- 1744 Apr, Post-traumatic stress disorder, unspecified F43.10 ; Major depressive disorder, recurrent, moderate F33.1 and Problems related to [facility] Z65.2 [place] [address] [address]- 9187 Apr, Primary insomnia F51.01 ; Post-traumatic stress disorder, chronic F43.12 and Problems related to release [facility] Z65.2 [place] [id number] [place] [address] 66248- 1520 17 Apr, 2016 Post-traumatic stress disorder, unspecified F43.10 ; Major depressive disorder, recurrent, moderate F33.1 and Problems related to [facility] Z65.2 [place] [id number] [place] [address] 25883- 1611 16 Apr, 2016 [place] [id number] [place] [address] 73789- 3746 Apr, Sleep apnea, obstructive G47.33 ; Chronic pain G89.29 ; HTN (hypertension) I10 ; Mitral valve prolapse I34.1 ; Shoulder pain, left M25.512 ; Arrhythmia as indication for cardiac pacemaker replacement I49.9 ; Glaucoma H40.9 ; Bilateral headaches R51 ; Environmental allergies Z91.09 ; Primary insomnia F51.01 and Nausea R11.0 [facility] [id number] [place] [address] [phone] Apr, [facility] [id number] [place] [address] [phone] Apr, [facility] [id number] [place] [phone] 1242 Apr, Post-traumatic stress disorder, unspecified F43.10 ; Major depressive disorder, recurrent, moderate F33.1 and Problems related to release [facility] Z65.2 [place] [id number] [place] [address] 97723- 4310 Apr, HTN (hypertension) I10 [place] [address] [place] [id number] [place] [address] 37080- 7302 Apr, HTN (hypertension) I10 [place] [id number] [place] [address] 09578- 9324 14 Mar, 2016 Chronic pain G89.29 ; Primary insomnia F51.01 and Problems related to release from [facility] Z65.2 [place] [address] [place] [id number] [place] [address] 80807- 4480 07 Mar, 2016 Post-traumatic stress disorder, unspecified F43.10 ; Major depressive disorder, recurrent, moderate F33.1 and Problems related to release [facility] Z65.2 [place] [address] [place] [id number] [place] [address] 45728- 5671 Feb, Post-traumatic stress disorder, unspecified F43.10 ; Major depressive disorder, recurrent, moderate F33.1 and Problems related to release [facility] Z65.2 [place] [address] [place] [id number] [place] [address] 68419- 4817 Feb, Chronic tension headaches G44.229 [place] [id number] [place] [address] 21553- 3464 Feb, Sleep apnea, obstructive G47.33 ; Obesity [...] pacemaker replacement I49.9 and Primary insomnia F51.01 [place] [id number] [place] [address] 29178- 1876 17 Feb, 2016 Post-traumatic stress disorder, unspecified F43.10 and Chronic pain G89.29 [place] [address] [place] [id number] [place] [address] 54827- 3475 Feb, [facility] [address] [place] [address] [id number] Feb, Dental caries K02.9 [place] [address] [place] [id number] [place] [address] 08309- 3978 Feb, [address] 31930- 8983 Feb, Post-traumatic stress disorder, unspecified F43.10 ; Major depressive disorder, recurrent, moderate F33.1 and Problems related to release [facility] Z65.[address] 54999- 2093 Jan, Sleep apnea, obstructive G47.33 and Chronic pain G89.[address] 17477- 2113 Jan, [address] 70358- 6686 Jan, Dental examination Z01.[address] 99485- 6268 Jan, [place] [address] 99429- 6556 Jan, [address] 64899- 0233 Dec, Post-traumatic stress disorder, unspecified F43.10 ; Major depressive disorder, recurrent, moderate F33.1 and Problems related to release from [facility] Z65.[address] 53317- 9312 Dec, Encounter for immunization Z23 ; Problems related to release from [facility] Z65.2 ; Sleep apnea, obstructive G47.33 and Post-traumatic stress disorder, chronic F43.[address] 94283- 3922 Dec, Sleep apnea, obstructive G47.33 ; Hyperlipidemia E78.5 ; Chronic pain G89.29 ; Glaucoma H40.9 ; HTN (hypertension) I10 ; Post-traumatic stress disorder, unspecified F43.10 ; Anxiety F41.9 ; Chronic tension headaches G44.229 ; Mitral valve prolapse I34.1 and CAD (coronary artery disease) I25.10 [place] [address] [place] [id number] [place] [address] 31841- 2267 Dec, Post-traumatic stress disorder, unspecified F43.10 ; Major depressive disorder, recurrent, moderate F33.1 and Problems related to [facility] Z65.2 [place] [address] [place] [id number] [place] [address] 31909- 6856 Nov, Chronic pain G89.29 [place] [address] 97658- 8723 Nov, Post-traumatic stress disorder, unspecified F43.10 ; Major depressive disorder, recurrent, moderate F33.1 and Problems related to [facility] Z65.2 [place] [address] [place] [id number] [place] [address] 73716- 1800 Oct, [place] [address] 30139- 7765 Oct, [place] [address] [place] [id number] [place] [address] 05270- 6387 16 Oct, 2015 Post-traumatic stress disorder, unspecified F43.10 ; Major depressive disorder, recurrent, moderate F33.1 and Problems related to [facility] Z65.2 [place] [address] [place] [id number] [place] [address] 96173- 4036 08 Oct, 2015 [place] [address] [place] [id number] [place] [address] 45920- 1779 07 Oct, 2015 Environmental allergies Z91.09 ; Cough R05 and 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 [place] [address] 45626- 0383 Sep, [place] [address] [place] [id number] [place] [address] 80336- 7878 Sep, Post-traumatic stress disorder, unspecified F43.10 ; Major depressive disorder, recurrent, moderate F33.1 and Problems related to [facility] Z65.2 [place] [id number] [place] [address] 51060- 3870 Sep, Chronic pain G89.29 [place] [address] [place] [id number] [place] [address] 78695- 2277 Sep, Pain in left shoulder M25.512 ; Pain in right shoulder M25.511 and Other chronic pain G89.29 [place] [address] [place] [id number] [place] [address] 44967- 7022 Sep, [place] [address] [place] [id number] [place] [address] 60073- 7099 Sep, [place] [address] [place] [id number] [place] [address] 54051- 8791 Sep, [facility] [address] [place] [id number] [place] [address] [id number] Aug, Dental examination Z01.20 [place] [address] [place] [id number] [place] [address] 53929- 9132 Aug, Post-traumatic stress disorder, unspecified F43.10 ; Open- angle glaucoma of both eyes H40.10X0 and Problems related to release [facility] Z65.2 [place] [id number] [place] [address] 57892- 9028 Aug, [place] [address] [place] [id number] [place] [address] 90151- 7226 Aug, Sleep apnea, obstructive G47.33 ; Obesity E66.9 ; Hyperlipidemia E78.5 ; Bilateral headaches R51 ; HTN (hypertension) I10 ; Post- traumatic stress disorder, unspecified F43.10 ; Anxiety F41.9 ; Neuropathy G62.9 ; Glaucoma H40.9 and Chronic pain G89.29 [facility] [address] [place] [id number] [place] [address] [id number] Aug, Encounter for dental examination Z01.20 [place] [address] [place] [id number] [place] [address] 18304- 4150 Aug, Post-traumatic stress disorder, unspecified F43.10 ; Major depressive disorder, recurrent, moderate F33.1 and Problems related to [facility] Z65.2 [facility] [address] [address]- 8942 Aug, [facility] [id number] [address]- 9122 Jul, [facility] [address] [place] [id number] [place] [address] 34380- 6913 Jul, Post-traumatic stress disorder, unspecified F43.10 and Major depressive disorder, recurrent, moderate F33.1 [facility] [address] [place] [id number] [place] [address] 10786- 3097 Jul, [facility] [address] [place] [id number] [place] [address] 03401- 5084 Jul, [facility] [address] [place] [id number] [place] [address] 45947- 8209 Jul, Chronic pain G89.29 [facility] [address] [place] [id number] [place] [address] 24141- 1666 June, Post-traumatic stress disorder, unspecified F43.10 and Major depressive disorder, recurrent, moderate F33.1 [facility] [address] [address]- 1471 June, [facility] [id number] [place] [address] 49159- 0016 June, Chronic pain G89.29 [facility] [id number] [place] [address] 68959- 9888 June, Post-traumatic stress disorder, unspecified F43.10 and Major depressive disorder, recurrent, moderate F33.1 [facility] [address] [address]- 5375 May, Post-traumatic stress disorder, unspecified F43.10 and Major depressive disorder, recurrent, moderate F33.1 [facility] [address] [address]- 3884 15 May, 2015 [facility] [address] [place] [id number] [place] [address] 77659- 3226 08 May, 2015 [facility] [address] [address]- 2595 May, [facility] [address] [place] [id number] [place] [address] 42921- 4458 Apr, [facility] [address] [place] [id number] [place] [address] 90326- 4075 Apr, Post-traumatic stress disorder, unspecified F43.10 and Sleep apnea, obstructive G47.33 [facility] [id number] [place] [address] 04587- 4754 Apr, [facility] [address] [place] [id number] [place] [address] 70225- 8520 Apr, Shoulder pain, left M25.512 [facility] [address] [place] [id number] [place] [address] 89769- 9678 Apr, Post-traumatic stress disorder, unspecified F43.10 and Major depressive disorder, recurrent, moderate F33.1 [facility] [address] [address]- 4541 17 Apr, 2015 [facility] [id number] [place] [address] 95985- 4696 Apr, [facility] [address] [address]- 9372 Apr, [facility] [address] [place] [id number] [place] [address] 41325- 2873 07 Apr, 2015 Left shoulder pain M25.512 [facility] [address] [address]- 6475 Mar, [facility] [address] [place] [id number] [place] [address] 53269- 9832 Mar, [place] [address] [place] [id number] [place] [address] 94299- 4294 Mar, [place] [address] [place] [id number] [place] [id number] 2582 Mar, Sleep apnea, obstructive G47.33 ; Obesity E66.9 ; Chronic pain G89.29 ; Hyperlipidemia E78.5 ; HTN (hypertension) I10 ; Blindness and low vision H54.10 ; Major depressive disorder, recurrent, moderate F33.1 and Anxiety F41.9 [place] [address] [place] [id number] [place] [address] 68170- 0595 Mar, [place] [address] [place] [id number] [place] [address] 04066- 2962 Mar, Post-traumatic stress disorder, unspecified F43.10 and Major depressive disorder, recurrent, moderate F33.1 [place] [address] [place] [id number] [place] [address] 59470- 7749 Mar, [place] [address] [place] [id number] [place] [address] 86798- 9582 Mar, HTN (hypertension) I10 ; Blindness and low vision H54.10 ; Obesity E66.9 ; Hyperlipidemia E78.5 ; Glaucoma H40.9 ; Chronic pain G89.29 and CAD (coronary artery disease) I25.10 [place] [address] [place] [id number] [place] [address] 95300- 7923 Feb, [place] [address] [place] [id number] [place] [address] 43104- 4202 Feb, Post-traumatic stress disorder, unspecified F43.10 ; Obesity E66.9 ; Sleep apnea, obstructive G47.33 and 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 [place] [address] [place] [id number] [place] [address] 94089- 0324 Feb, Post-traumatic stress disorder, unspecified F43.10 and Major depressive disorder, recurrent, moderate F33.1 [place] [address] [place] [id number] [place] [address] 73103- 2849 Feb, [place] [address] 09082- 5128 Feb, [place] [address] [place] [id number] [place] [address] 03030- 9607 Feb, HTN (hypertension) I10 ; Post-traumatic stress disorder, unspecified F43.10 ; Blindness and low vision H54.10 ; Obesity E66.9 ; Hyperlipidemia E78.5 ; Chronic pain G89.29 ; Glaucoma H40.9 ; Mitral valve prolapse I34.1 and Bilateral headaches R51 [place] [address] 42020- 7936 Feb, [place] [address] [place] [id number] [place] [address] 95629- 9404 Feb, Post-traumatic stress disorder, unspecified F43.10 and Major depressive disorder, recurrent, moderate F33.1 [place] [address] [place] [id number] [place] [address] 13422- 4967 Feb, [place] [address] 15082- 4801 Feb, [place] [address] [place] [id number] [place] [address] 47384- 3020 Jan, [place] [address] [place] [id number] [place] [address] 84765- 7416 Jan, [place] [address] [place] [id number] [place] [address] 04017- 0021 Jan, Obesity E66.9 ; HTN (hypertension) I10 ; Blindness and low vision H54.10 ; Major depressive disorder, recurrent, moderate F33.1 ; Glaucoma H40.9 ; Hyperlipidemia E78.5 ; Sleep apnea, obstructive G47.33 ; Chronic pain G89.29 ; Anxiety F41.9 ; Chronic tension headaches G44.229 and Cough R05 [place] [address] [place] [id number] [place] [address] 81594- 8844 Jan, [facility] [address] [place] [id number] [place] [address] 60592- 1169 Jan, [facility] [address] [place] [id number] [place] [address] 12967- 1548 Jan, Post-traumatic stress disorder, unspecified F43.10 ; Obesity E66.9 ; Sleep apnea, obstructive G47.33 and 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 [facility] [address] [place] [id number] [place] [address] 77053- 8420 Jan, [place] [address] [place] [id number] [place] [address] 74625- 9271 Jan, Post-traumatic stress disorder, unspecified F43.10 and Major depressive disorder, recurrent, moderate F33.1 [place] [address] [place] [id number] [place] [address] 11736- 7095 Dec, [place] [address] [place] [id number] [place] [address] 05945- 8468 Dec, Sleep apnea, obstructive G47.33 ; Obesity E66.9 ; Hyperlipidemia E78.5 ; Glaucoma H40.9 ; Chronic pain G89.29 ; HTN (hypertension ) I10 ; Blindness and low vision H54.10 ; Anxiety F41.9 and CAD (coronary artery disease) I25.10 [place] [address] [place] [id number] [place] [address] 05340- 0678 Nov, [place] [address] [place] [id number] [place] [address] 29052- 2078 Nov, [facility] [address] [place] [id number] [place] [address] 10916- 9057 Nov, [facility] [id number] [place] [address] 31310- 2716 Nov, [place] [address] [place] [id number] [place] [address] 86572- 2973 Nov, [facility] [address] [place] [id number] [place] [address] 88270- 3463 Nov, Encounter for immunization Z23 ; Sleep apnea, obstructive G47.33 ; Obesity E66.9 ; Hyperlipidemia E78.5 ; Glaucoma H40.9 ; Chronic pain G89.29 ; Anxiety F41.9 ; Chronic tension headaches G44.229 and HTN (hypertension ) I10 [facility] [address] 72638- 9029 Nov, [facility] [address] 13687- 3963 Nov, [facility] [address] 28081- 8259 Nov, Dizziness R42 [facility] [address] 39698- 6970 Nov, [facility] [address] 35449- 6561 Oct, [facility] [address] 94466- 2117 Oct, [facility] [address] 64833- 5915 Oct, [facility] [address] [place] [id number] [place] [address] 83722- 3990 Oct, [facility] [address] 95586- 5239 Oct, Dizziness 780.4 ; Essential hypertension 401.9 ; Obesity 278.00 ; Hyperlipidemia 272.4 ; Chronic pain 338.29 ; Glaucoma 365.9 and Anxiety 300.00 [facility] [address] [place] [id number] [place] [address] 92195- 0423 Oct, Essential hypertension 401.9 ; Hyperlipidemia 272.4 ; Glaucoma 365.9 ; Obesity 278.00 ; Chronic pain 338.29 and Allergy to insects V15.06 [facility] [address] [place] [id number] [address]- 3667 Sep, [facility] [address] [facility] [id number] [place] [address]- 8909 Sep, [facility] [address] [facility] [id number] [place] [address]- 7634 Sep, [facility] [address] [facility] [id number] [address]- 6628 Sep, [facility] [address] [facility] [id number] [address]- 4668 Aug, Essential hypertension 401.9 ; Obesity 278.00 ; Hyperlipidemia 272.4 ; Glaucoma 365.9 ; Lipoma 214.9 ; Mitral valve prolapse 424.0 ; Angina at rest 413.9 ; Lymphedema 457.1 and Chronic pain 338.29 IMMUNIZATIONS No Known Immunizations SOCIAL HISTORY Never Assessed REASON FOR VISIT Blood pressure check, Per panda Asher to order bmp to have rechecked for [employer] PLAN OF CARE VITAL SIGNS Height 67 in 2017-09-20 Blood pressure systolic 132 mmHg 2017-09-20 Blood pressure diastolic 78 mmHg 2017-09-20 MEDICATIONS Unknown Medications RESULTS No Results PROCEDURES [...]
--- OUTSIDE RECORDS SUMMARY | 2018-02-04 14:24 | XMS REPORT ---
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 Name Role Phone ALENA ÁLVAREZ Unavailable PROBLEMS Type Condition ICD9-CM Code QYE00-DX Code Onset Dates Condition Status SNOMED Code Problem Hyperlipidemia E78.5 Active 74495900 Problem Arrhythmia as indication for cardiac pacemaker replacement I49.9 Active 82553318 Problem Sleep apnea, obstructive G47.33 Active 48042013 Problem Primary insomnia F51.01 Active 2621137 Problem Chronic pain G89.29 Active 79431614 Problem Morbid (severe) obesity due to excess calories E66.01 Active 387312702 Problem Body mass index (BMI) of 40.0-44.9 in adult Z68.41 Active 013918783 Problem Other male erectile dysfunction N52.8 Active 806315570 Problem Supraventricular tachycardia I47.1 Active 5903218 Problem Sarcoidosis D86.9 Active 89684239 Problem HTN (hypertension) I10 Active 60599336 Problem Blindness and low vision H54.10 Active 634406699 Problem Myocarditis, unspecified chronicity, 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 Active 17187014 Problem Migraine without aura and without status migrainosus, not intractable G43.009 Active 236596988 Problem 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 Active 041268801 Problem Problems related to release from detention Z65.2 Active 170541285430323 Problem Chronic pain syndrome G89.4 Active 885010746 Problem Major depressive disorder, recurrent, moderate F33.1 Active 39874082 Problem 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 Active 46777707 Problem Chronic tension headaches G44.229 Active 318011475 Problem Anxiety F41.9 Active 17180521 Problem Post-traumatic stress disorder, chronic F43.12 Active 768677604 Problem Environmental allergies Z91.09 Active 319075341 Problem Mitral valve prolapse I34.1 Active 792128241 Problem CAD (coronary artery disease) I25.10 Active 08663598 ALLERGIES No Information ENCOUNTERS Encounter Location Date Diagnosis [facility] [id number] [place] [address] 61490- 7019 Nov, [facility] [address] 02063- 3827 Oct, [facility] [address] 43121- 1962 Oct, [place] [address] 80497- 5383 Oct, Left leg pain M79.605 [place] [address] 87053- 5113 04 Oct, 2017 Post-traumatic stress disorder, unspecified F43.10 ; Major depressive disorder, recurrent, moderate F33.1 and Problems related to release from detention Z65.2 [place] [address] 70360- 1654 Sep, Arrhythmia as indication for cardiac pacemaker replacement I49.9 [place] [address] 77041- 9992 Sep, [place] [address] 41186- 8944 Sep, HTN (hypertension) I10 [place] [id number] [place] [address] 83865- 2760 Sep, [place] [address] 13260- 6332 Sep, Body mass index (BMI) of 40.0-44.9 in adult Z68.41 ; Chronic pain G89.29 and Supraventricular tachycardia I47.1 [facility] [id number] [place] [address] 43740- 2369 Sep, [facility] [address] 59618- 4859 13 Sep, 2017 Sarcoidosis D86.9 [facility] [address] [place] [address] 3[address] Sep, Sarcoidosis D86.9 [facility] [id number] [place] [address] 87068- 3656 Sep, [facility] [id number] [place] [address] 42538- 6746 Sep, [facility] [id number] [place] [address] 99643- 9686 Sep, [facility] [id number] [place] [address] 35981- 2875 Sep, [facility] [id number] [place] [address] 30072- 8930 Sep, Left leg pain M79.605 [facility] [id number] [place] [address] 50959- 4841 Sep, HTN (hypertension) I10 [facility] [address] [place] [address] 06632- 0597 Sep, [facility] [id number] [place] [address] 24865- 5744 Sep, Post-traumatic stress disorder, unspecified F43.10 ; Major depressive disorder, recurrent, moderate F33.1 and Problems related to release from detention Z65.2 [facility] [address] [place] [address] 32881- 0166 Sep, [facility] [address], [place] [address] 2548 Aug, [facility] [id number] [place] [address] 54528- 7220 Aug, Sarcoidosis D86.9 [facility] [address] [address] 2546 Aug, Sarcoidosis D86.9 [facility] [id number] [place] [address] 70005- 3778 30 Aug, 2017 HTN (hypertension) I10 [place] [id number] [place] [address] 11000- 1329 18 Aug, 2017 Post-traumatic stress disorder, unspecified F43.10 ; Major depressive disorder, recurrent, moderate F33.1 and Problems related to release from detention Z65.2 [place] [address] 97897- 3664 11 Aug, 2017 [place] [address] 28367- 0737 Aug, Left leg pain M79.605 [place] [address] 74697- 2801 26 Jul, 2017 Post-traumatic stress disorder, chronic F43.12 ; Anxiety F41.9 ; Problems related to release from detention Z65.2 and BMI 40.0-44.9, adult Z68.41 [place] [address] 03689- 3106 20 Jul, 2017 HTN (hypertension) I10 ; Body mass index (BMI) of 40.0-44.9 in adult Z68.41 ; Acute swimmer''s ear of both sides H60.333 and Chronic pain G89.29 [place] [id number] [place] [address] 56992- 6086 19 Jul, 2017 Glaucoma H40.9 [place] [id number] [place] [address] 04490- 8491 14 Jul, 2017 [place] [id number] [place] [address] 83162- 5718 13 Jul, 2017 Sarcoidosis D86.9 [place] [address] 05785- 9507 Jul, Left leg pain M79.605 [place] [address] 85134- 5066 12 Jul, 2017 Sarcoidosis D86.9 [place] [id number] [address]- 5896 Jul, Post-traumatic stress disorder, unspecified F43.10 ; Major depressive disorder, recurrent, moderate F33.1 and Problems related to release from detention Z65.2 [facility] [address] [address] 237[address] June, [facility] [id number] [place] [address] 73986 -3080 June, Sore throat J02.9 and BMI 40.0-44.9, adult Z68.41 [facility] [id number] [place] [address] 36574- 4244 June, [facility] [id number] [place] [address] 84023- 5188 June, [facility] [id number] [place] [address] 67342- 0601 June, [facility] [id number] [place] [address] 10654- 6332 June, Left leg pain M79.605 [facility] [id number] [place] [address] 17464- 1370 June, Sarcoidosis D86.9 [facility] [id number] [address]- 5446 June, [facility] [id number] [place] [address] 34649- 8518 June, [facility] [address], [place] [address]- 4808 June, Left leg pain M79.605 [facility] [id number] [address]- 6770 May, [facility] [address] [place] [address]- 1927 May, [facility] [address] [address]- 7517 May, [facility] [id number] [place] [address] 77863- 3390 May, Left leg pain M79.605 [facility] [address] [place] [address] 79070- 6861 May, Post-traumatic stress disorder, unspecified F43.10 ; Major depressive disorder, recurrent, moderate F33.1 and Problems related to release from detention Z65.2 [place] [id number] [place] [address] 05796- 8325 May, Chronic pain G89.29 ; Anxiety F41.9 ; Chest pain, unspecified type R07.9 and BMI 40.0-44.9, adult Z68.41 [place] [id number] [place] [address] 30776- 8266 30 Apr, 2017 [place] [id number] [place] [address] 81662- 4056 Apr, Left leg pain M79.605 [place] [id number] [place] [address] 79496- 5633 27 Apr, 2017 Post-traumatic stress disorder, unspecified F43.10 ; Problems related to release from detention Z65.2 ; Anxiety F41.9 and BMI 40.0-44.9 , adult Z68.41 [place] [id number] [place] [address] 42852- 0975 Apr, [place] [id number] [place] [address] 92639- 3418 Apr, Left leg pain M79.605 [place] [id number] [place] [address] 93891- 3016 Apr, Post-traumatic stress disorder, unspecified F43.10 ; Major depressive disorder, recurrent, moderate F33.1 and Problems related to release from detention Z65.2 [place] [address] 55413- 1400 Apr, [facility] [address] 53004- 0314 12 Apr, 2017 Chronic pain G89.29 ; 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 ; Morbid (severe) obesity due to excess calories E66.01 ; Anxiety F41.9 and BMI 40.0-44.9, adult Z68.41 [facility] [address] 21156 -7287 Apr, Sore throat J02.9 and BMI 40.0-44.9, adult Z68.[address] 93364- 6078 02 Apr, 2017 Left leg pain M79.605 [facility] [address] [id number] Mar, Dental examination Z01.20 [place] [address] 74270- 8433 Mar, [facility] [address] [place] [address] 10491 -1025 Mar, Cough R05 ; Viral gastroenteritis A08.4 and BMI 40.0-44.9, adult Z68.41 [place] [address] 70733- 6141 Mar, Left leg pain M79.605 [place] [address] 48779- 4637 06 Mar, 2017 Post-traumatic stress disorder, unspecified F43.10 ; Major depressive disorder, recurrent, moderate F33.1 and Problems related to release from detention Z65.2 [place] [address] 86043- 1915 Feb, Left leg pain M79.605 [place] [address] 60221- 1351 Feb, [facility] [id number] [place] [address] 44159- 7916 Feb, BMI 40.0-44.9, adult Z68.41 ; Chronic pain syndrome G89.4 ; Migraine without aura and without status migrainosus, not intractable G43.009 ; Mitral valve prolapse I34.1 and 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 [place] [address] 98228- 2724 Feb, Post-traumatic stress disorder, chronic F43.12 ; Anxiety F41.9 ; Problems related to release from detention Z65.2 and BMI 40.0-44.9, adult Z68.41 [place] [address] 09576- 7439 Feb, Post-traumatic stress disorder, unspecified F43.10 ; Major depressive disorder, recurrent, moderate F33.1 and Problems related to release from detention Z65.2 [place] [id number] [place] [address] 28789- 6955 Feb, Left leg pain M79.605 [place] [address] 78992- 3063 Jan, Post-traumatic stress disorder, unspecified F43.10 ; Major depressive disorder, recurrent, moderate F33.1 and Problems related to release from detention Z65.2 [place] [id number] [place] [address] 65146- 2873 Jan, [place] [id number] [place] [address] 49454- 9525 Jan, [place] [id number] [place] [address] 93880- 1816 Jan, Anxiety F41.9 [facility] [id number] [place] [address] 00741- 5843 Jan, Left leg pain M79.605 [place] [address] 21721- 0313 Dec, Left leg pain M79.605 [facility] [address] [place] [address] 06087- 6741 Dec, [facility] [id number] [place] [address] 86257- 3251 Dec, Post-traumatic stress disorder, unspecified F43.10 ; Major depressive disorder, recurrent, moderate F33.1 and Problems related to release from detention Z65.2 [facility] [id number] [place] [address] 93626- 5224 Nov, Chronic pain G89.29 and Anxiety F41.9 [place] [id number] [place] [address] 52097- 2116 Nov, Chronic pain G89.29 and Anxiety F41.9 [facility] [id number] [place] [address] 62688- 7594 16 Nov, 2016 Post-traumatic stress disorder, unspecified F43.10 ; Major depressive disorder, recurrent, moderate F33.1 and Problems related to release from detention Z65.2 [facility] [id number] [place] [address] 22856- 9756 09 Nov, 2016 Other abnormal findings in specimens from other organs, systems and tissues R89.8 ; Other male erectile dysfunction N52.8 ; Body mass index (BMI) of 40.0-44.9 in adult Z68.41 and Morbid (severe) obesity due to excess calories E66.01 [facility] [id number] [place] [address] 39288- 4022 02 Nov, 2016 Post-traumatic stress disorder, unspecified F43.10 ; Major depressive disorder, recurrent, moderate F33.1 and Problems related to release from detention Z65.2 [facility] [address] [place] [address] [id number] Oct, Dental examination Z01.20 [facility] [address] [place] [address] 02840- 4632 Oct, [place] [address] [place] [address] 71693- 1352 28 Oct, 2016 Encounter for immunization Z23 [place] [address] 38308- 9564 Oct, Chronic pain G89.29 ; Anxiety F41.9 ; Arrhythmia as indication for cardiac pacemaker replacement I49.9 and Glaucoma H40.9 [place] [id number] [place] [address] 10255- 8909 Oct, Anxiety F41.9 ; Post-traumatic stress disorder, chronic F43.12 and Problems related to release from detention Z65.2 [place] [id number] [place] [address] 70206- 1440 07 Oct, 2016 Post-traumatic stress disorder, unspecified F43.10 ; Major depressive disorder, recurrent, moderate F33.1 and Problems related to release from detention Z65.2 [place] [id number] [place] [address] 31540- 8944 Sep, Chronic pain G89.29 and Anxiety F41.9 [place] [id number] [place] [address] 39504- 4329 Sep, Post-traumatic stress disorder, unspecified F43.10 ; Major depressive disorder, recurrent, moderate F33.1 and Problems related to release from detention Z65.2 [place] [id number] [place] [address] 20148- 8675 Sep, Post-traumatic stress disorder, unspecified F43.10 ; Major depressive disorder, recurrent, moderate F33.1 and Problems related to release from detention Z65.2 [place] [id number] [place] [address] 63292- 2833 Sep, Chronic pain G89.29 [place] [id number] [place] [address] 49698- 9208 Aug, Dental caries, unspecified K02.9 [place] [id number] [place] [address] 59903- 4505 Aug, Sleep apnea, obstructive G47.33 ; Obesity E66.9 ; Chronic pain G89.29 ; HTN (hypertension) I10 ; Major depressive disorder, recurrent, moderate F33.1 ; Anxiety F41.9 ; Chronic tension headaches G44.229 ; Mitral valve prolapse I34.1 ; Arrhythmia as indication for cardiac pacemaker replacement I49.9 ; Dental caries, unspecified K02.9 ; Primary insomnia F51.01 and Hyperlipidemia E78.5 [place] [id number] [place] [address] 00836- 2921 Aug, Post-traumatic stress disorder, unspecified F43.10 ; Major depressive disorder, recurrent, moderate F33.1 and Problems related to release from detention Z65.2 [place] [id number] [place] [address] 94982- 9459 Aug, Dental examination Z01.20 [facility] [address] [id number] Aug, Dental examination Z01.20 [facility] [id number] [place] [address] 52296- 0752 Aug, Post-traumatic stress disorder, unspecified F43.10 ; Major depressive disorder, recurrent, moderate F33.1 and Problems related to release from detention Z65.2 [place] [id number] [place] [address] 01092- 5069 Aug, Chronic pain G89.29 and Primary insomnia F51.01 [facility] [id number] [place] [address] 52170- 6537 Jul, [facility] [id number] [place] [address] 18640- 2727 Jul, [place] [id number] [place] [address] 01072- 2623 Jul, Nausea R11.0 [facility] [id number] [place] [address] 61441- 9920 29 Abraham, 2017 Arrhythmia as indication for cardiac pacemaker replacement I49.9 [place] [address] [place] [address] 58402- 2077 13 Jul, 2016 Post-traumatic stress disorder, unspecified F43.10 ; Major depressive disorder, recurrent, moderate F33.1 and Problems related to release from detention Z65.2 [place] [id number] [place] [address] 51727- 3262 09 Jul, 2016 Anxiety F41.9 [place] [address] 17873- 4762 08 Jul, 2016 Chronic pain G89.[address] 78136- 9025 Jul, Sleep apnea, obstructive G47.33 ; Hyperlipidemia E78.5 ; Chronic pain G89.29 ; Blindness and low vision H54.10 ; Major depressive disorder, recurrent, moderate F33.1 ; Anxiety F41.9 ; Mitral valve prolapse I34.1 ; Arrhythmia as indication for cardiac pacemaker replacement I49.9 ; Primary insomnia F51.01 ; Bilateral headaches R51 and Environmental allergies Z91.09 [place] [id number] [place] [address] 45966- 7465 Jul, Post-traumatic stress disorder, unspecified F43.10 ; Major depressive disorder, recurrent, moderate F33.1 and Problems related to release from detention Z65.2 [place] [id number] [place] [address] 42935- 5454 June, Post-traumatic stress disorder, chronic F43.12 ; Anxiety F41.9 ; Problems related to release from detention Z65.2 ; Sleep apnea, obstructive G47.33 and Primary insomnia F51.01 [place] [id number] [place] [address] 95132- 4625 June, [place] [id number] [place] [address] 22154- 6094 June, [place] [id number] [place] [address] 27734- 0596 June, [place] [address] [place] [address] 69691- 8801 June, Chronic pain G89.29 [place] [id number] [place] [address] 66142- 2722 June, Chronic pain G89.29 [place] [address] [place] [address] 11467- 2052 June, Lipoma of left lower extremity D17.24 ; Open wound T14.8 and Swelling of left lower extremity M79.89 [place] [id number] [place] [address] 18059- 2215 June, Post-traumatic stress disorder, unspecified F43.10 ; Major depressive disorder, recurrent, moderate F33.1 and Problems related to release from detention Z65.2 [place] [id number] [place] [address] 67185- 3741 May, Lipoma of left lower extremity D17.24 ; Major depressive disorder, recurrent, moderate F33.1 ; Sleep apnea, obstructive G47.33 ; Hyperlipidemia E78.5 ; Obesity E66.9 ; HTN (hypertension) I10 ; Glaucoma H40.9 ; CAD (coronary artery disease) I25.10 ; Chronic tension headaches G44.229 ; Chronic pain G89.29 ; Anxiety F41.9 ; Nausea R11.0 and Primary insomnia F51.01 [place] [address] [place] [address] 68773- 5434 May, [place] [address] [place] [address] 80745- 5744 May, Chronic pain G89.29 [place] [id number] [place] [address] 07877- 2687 May, [place] [id number] [place] [address] 03290- 6115 Apr, Post-traumatic stress disorder, unspecified F43.10 ; Major depressive disorder, recurrent, moderate F33.1 and Problems related to release from detention Z65.2 [place] [address] [place] [address]- 9893 Apr, Primary insomnia F51.01 ; Post-traumatic stress disorder, chronic F43.12 and Problems related to release from detention Z65.2 [place] [id number] [place] [address] 86430- 1791 17 Apr, 2016 Post-traumatic stress disorder, unspecified F43.10 ; Major depressive disorder, recurrent, moderate F33.1 and Problems related to release from detention Z65.2 [place] [id number] [place] [address] 48602- 5494 16 Apr, 2016 [place] [id number] [place] [address] 08150- 4082 Apr, Sleep apnea, obstructive G47.33 ; Chronic pain G89.29 ; HTN (hypertension) I10 ; Mitral valve prolapse I34.1 ; Shoulder pain, left M25.512 ; Arrhythmia as indication for cardiac pacemaker replacement I49.9 ; Glaucoma H40.9 ; Bilateral headaches R51 ; Environmental allergies Z91.09 ; Primary insomnia F51.01 and Nausea R11.0 [place] [address] [place] [address] 23355- 3604 Apr, [place] [address] [place] [address] 52422- 3841 Apr, [place] [id number] [place] [address] 38303- 0271 Apr, Post-traumatic stress disorder, unspecified F43.10 ; Major depressive disorder, recurrent, moderate F33.1 and Problems related to release from detention Z65.2 [place] [address] [place] [address] 40899- 9693 Apr, HTN (hypertension) I10 [place] [id number] [place] [address] 82325- 1484 Apr, HTN (hypertension) I10 [place] [address] [place] [address] 06425- 4314 14 Mar, 2016 Chronic pain G89.29 ; Primary insomnia F51.01 and Problems related to release from detention Z65.2 [place] [id number] [place] [address] 24162- 0104 07 Mar, 2016 Post-traumatic stress disorder, unspecified F43.10 ; Major depressive disorder, recurrent, moderate F33.1 and Problems related to release from detention Z65.2 [place] [id number] [place] [address] 52503- 1732 Feb, Post-traumatic stress disorder, unspecified F43.10 ; Major depressive disorder, recurrent, moderate F33.1 and Problems related to release from detention Z65.2 [place] [id number] [place] [address] 50376- 0487 Feb, Chronic tension headaches G44.229 [place] [id number] [place] [id number] Feb, Sleep apnea, obstructive G47.33 ; Obesity E66.9 ; Hyperlipidemia E78.5 ; Glaucoma H40.9 ; Chronic pain G89.29 ; HTN (hypertension ) I10 ; Blindness and low vision H54.10 ; 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 ; Chronic tension headaches G44.229 ; Cough R05 ; CAD (coronary artery disease) I25.10 ; Problems related to release from detention Z65.2 ; Arrhythmia as indication for cardiac pacemaker replacement I49.9 and Primary insomnia F51.01 [place] [id number] [place] [address] 05748- 6762 17 Feb, 2016 Post-traumatic stress disorder, unspecified F43.10 and Chronic pain G89.29 [place] [address] [place] [id number] [place] [address] 77023- 1650 Feb, [facility] [id number] [place] [address] [id number] Feb, Dental caries K02.9 [place] [address] [place] [id number] [place] [address] 04188- 5443 Feb, [address] 32893- 5203 Feb, Post-traumatic stress disorder, unspecified F43.10 ; Major depressive disorder, recurrent, moderate F33.1 and Problems related to release from detention Z65.[address] 37546- 6409 Jan, Sleep apnea, obstructive G47.33 and Chronic pain G89.[address] 69139- 6768 Jan, [address] 31447- 3523 Jan, Dental examination Z01.[address] 14171- 3585 Jan, [place] [address] 70954- 8726 Jan, [address] 70712- 0066 Dec, Post-traumatic stress disorder, unspecified F43.10 ; Major depressive disorder, recurrent, moderate F33.1 and Problems related to release from detention Z65.[address] 69583- 4863 Dec, Encounter for immunization Z23 ; Problems related to release from detention Z65.2 ; Sleep apnea, obstructive G47.33 and Post-traumatic stress disorder, chronic F43.[address] 84152- 1029 Dec, Sleep apnea, obstructive G47.33 ; Hyperlipidemia E78.5 ; Chronic pain G89.29 ; Glaucoma H40.9 ; HTN (hypertension) I10 ; Post-traumatic stress disorder, unspecified F43.10 ; Anxiety F41.9 ; Chronic tension headaches G44.229 ; Mitral valve prolapse I34.1 and CAD (coronary artery disease) I25.10 [place] [address] [place] [id number] [place] [address] 26239- 6498 Dec, Post-traumatic stress disorder, unspecified F43.10 ; Major depressive disorder, recurrent, moderate F33.1 and Problems related to release from detention Z65.2 [place] [address] [place] [id number] [place] [address] 60183- 4589 Nov, Chronic pain G89.29 [place] [address] 93662- 7715 Nov, Post-traumatic stress disorder, unspecified F43.10 ; Major depressive disorder, recurrent, moderate F33.1 and Problems related to release from detention Z65.2 [place] [address] [place] [id number] [place] [address] 19791- 3645 Oct, [place] [address] 72609- 5273 Oct, [place] [address] [place] [id number] [place] [address] 65761- 0092 16 Oct, 2015 Post-traumatic stress disorder, unspecified F43.10 ; Major depressive disorder, recurrent, moderate F33.1 and Problems related to release from detention Z65.2 [place] [address] [place] [id number] [place] [address] 08169- 0052 08 Oct, 2015 [place] [address] [place] [id number] [place] [address] 87118- 0119 07 Oct, 2015 Environmental allergies Z91.09 ; Cough R05 and 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 [place] [address] 94780- 6373 Sep, [place] [address] [place] [id number] [place] [address] 43153- 7818 Sep, Post-traumatic stress disorder, unspecified F43.10 ; Major depressive disorder, recurrent, moderate F33.1 and Problems related to release from detention Z65.2 [place] [id number] [place] [address] 70592- 6328 Sep, Chronic pain G89.29 [place] [address] [place] [id number] [place] [address] 68359- 3426 Sep, Pain in left shoulder M25.512 ; Pain in right shoulder M25.511 and Other chronic pain G89.29 [place] [address] [place] [id number] [place] [address] 93989- 7299 Sep, [place] [address] [place] [id number] [place] [address] 31091- 5867 Sep, [place] [address] [place] [id number] [place] [address] 27689- 9908 Sep, [facility] [id number] [place] [address] [id number] Aug, Dental examination Z01.20 [place] [address] [place] [id number] [place] [address] 02403- 8184 Aug, Post-traumatic stress disorder, unspecified F43.10 ; Open- angle glaucoma of both eyes H40.10X0 and Problems related to release from detention Z65.2 [place] [id number] [place] [address] 98984- 2396 Aug, [place] [address] [place] [id number] [place] [address] 10590- 7058 Aug, Sleep apnea, obstructive G47.33 ; Obesity E66.9 ; Hyperlipidemia E78.5 ; Bilateral headaches R51 ; HTN (hypertension) I10 ; Post- traumatic stress disorder, unspecified F43.10 ; Anxiety F41.9 ; Neuropathy G62.9 ; Glaucoma H40.9 and Chronic pain G89.29 [facility] [id number] [place] [address] [id number] Aug, Encounter for dental examination Z01.20 [place] [address] [place] [id number] [place] [address] 24592- 7141 Aug, Post-traumatic stress disorder, unspecified F43.10 ; Major depressive disorder, recurrent, moderate F33.1 and Problems related to release from detention Z65.2 [facility] [address] [address] Aug, [facility] [address] [address] 7050 Jul, [facility] [address] [place] [id number] [place] [address] 81480- 9051 Jul, Post-traumatic stress disorder, unspecified F43.10 and Major depressive disorder, recurrent, moderate F33.1 [facility] [address] [place] [id number] [place] [address] 27070- 5783 Jul, [facility] [address] [place] [id number] [place] [address] 71344- 9037 Jul, [facility] [address] [place] [id number] [place] [address] 68481- 1402 Jul, Chronic pain G89.29 [facility] [address] [place] [id number] [place] [address] 22066- 5973 June, Post-traumatic stress disorder, unspecified F43.10 and Major depressive disorder, recurrent, moderate F33.1 [facility] [address] [address]- 3171 June, [facility] [id number] [place] [address] 32404- 4478 June, Chronic pain G89.29 [facility] [address] [place] [address] 72529- 3370 June, Post-traumatic stress disorder, unspecified F43.10 and Major depressive disorder, recurrent, moderate F33.1 [facility] [address], [place] [address]- 4636 May, Post-traumatic stress disorder, unspecified F43.10 and Major depressive disorder, recurrent, moderate F33.1 [facility] [address] [address]- 4359 15 May, 2015 [facility] [address] [place] [id number] [place] [address] 53229- 7416 08 May, 2015 [facility] [address], [place] [address]- 0587 May, [facility] [address] [place] [id number] [place] [address] 68268- 2916 Apr, [facility] [address] [place] [id number] [place] [address] 38301- 7794 Apr, Post-traumatic stress disorder, unspecified F43.10 and Sleep apnea, obstructive G47.33 [facility] [address] [place] [address] 08654- 2458 Apr, [facility] [address] [place] [id number] [place] [address] 38799- 8482 Apr, Shoulder pain, left M25.512 [facility] [address] [place] [id number] [place] [address] 45118- 2096 Apr, Post-traumatic stress disorder, unspecified F43.10 and Major depressive disorder, recurrent, moderate F33.1 [facility] [address] [address]- 8755 17 Apr, 2015 [facility] [id number] [place] [address] 00314- 8522 Apr, [facility] [address], [place] [address]- 2372 Apr, [facility] [address] [place] [id number] [place] [address] 00837- 6402 07 Apr, 2015 Left shoulder pain M25.512 [facility] [address], [place] [address]- 4868 Mar, [facility] [address] [place] [id number] [place] [address] 84683- 2149 Mar, [place] [address] [place] [id number] [place] [address] 60918- 1499 Mar, [place] [address] [place] [id number] [place] [address] Mar, Sleep apnea, obstructive G47.33 ; Obesity E66.9 ; Chronic pain G89.29 ; Hyperlipidemia E78.5 ; HTN (hypertension) I10 ; Blindness and low vision H54.10 ; Major depressive disorder, recurrent, moderate F33.1 and Anxiety F41.9 [place] [address] [place] [id number] [place] [address] 95272- 6638 Mar, [place] [address] [place] [id number] [place] [address] 58107- 7055 Mar, Post-traumatic stress disorder, unspecified F43.10 and Major depressive disorder, recurrent, moderate F33.1 [place] [address] [place] [id number] [place] [address] 92091- 8785 Mar, [place] [address] [place] [id number] [place] [address] 90338- 1853 Mar, HTN (hypertension) I10 ; Blindness and low vision H54.10 ; Obesity E66.9 ; Hyperlipidemia E78.5 ; Glaucoma H40.9 ; Chronic pain G89.29 and CAD (coronary artery disease) I25.10 [place] [address] [place] [id number] [place] [address] 44352- 8588 Feb, [place] [address] [place] [id number] [place] [address] 63121- 0319 Feb, Post-traumatic stress disorder, unspecified F43.10 ; Obesity E66.9 ; Sleep apnea, obstructive G47.33 and Open-angle glaucoma of both eyes H40.10X0 [place] [address] [place] [id number] [place] [address] 85859- 4980 Feb, Post-traumatic stress disorder, unspecified F43.10 and Major depressive disorder, recurrent, moderate F33.1 [place] [address] [place] [id number] [place] [address] 83762- 5729 Feb, [place] [address] 43058- 1033 Feb, [place] [address] [place] [id number] [place] [address] 68620- 2426 Feb, HTN (hypertension) I10 ; Post-traumatic stress disorder, unspecified F43.10 ; Blindness and low vision H54.10 ; Obesity E66.9 ; Hyperlipidemia E78.5 ; Chronic pain G89.29 ; Glaucoma H40.9 ; Mitral valve prolapse I34.1 and Bilateral headaches R51 [place] [address] 78026- 2021 Feb, [place] [address] [place] [id number] [place] [address] 10033- 3423 Feb, Post-traumatic stress disorder, unspecified F43.10 and Major depressive disorder, recurrent, moderate F33.1 [place] [address] [place] [id number] [place] [address] 50190- 7341 Feb, [place] [address] 37368- 6814 Feb, [place] [address] [place] [id number] [place] [address] 33136- 8005 Jan, [place] [address] [place] [id number] [place] [address] 43908- 7583 Jan, [place] [address] [place] [id number] [place] [address] 95248- 1711 Jan, Obesity E66.9 ; HTN (hypertension) I10 ; Blindness and low vision H54.10 ; Major depressive disorder, recurrent, moderate F33.1 ; Glaucoma H40.9 ; Hyperlipidemia E78.5 ; Sleep apnea, obstructive G47.33 ; Chronic pain G89.29 ; Anxiety F41.9 ; Chronic tension headaches G44.229 and Cough R05 [place] [address] [place] [id number] [place] [address] 99446- 8553 Jan, [facility] [address] [place] [id number] [place] [address] 28676- 2649 Jan, [facility] [address] [place] [id number] [place] [address] 44870- 4320 Jan, Post-traumatic stress disorder, unspecified F43.10 ; Obesity E66.9 ; Sleep apnea, obstructive G47.33 and Open-angle glaucoma of both eyes H40.10X0 [facility] [address] [place] [id number] [place] [address] 80422- 8489 Jan, [place] [address] [place] [id number] [place] [address] 84921- 5891 Jan, Post-traumatic stress disorder, unspecified F43.10 and Major depressive disorder, recurrent, moderate F33.1 [place] [address] [place] [id number] [place] [address] 67450- 1961 Dec, [place] [address] [place] [id number] [place] [address] 16287- 4794 Dec, Sleep apnea, obstructive G47.33 ; Obesity E66.9 ; Hyperlipidemia E78.5 ; Glaucoma H40.9 ; Chronic pain G89.29 ; HTN (hypertension ) I10 ; Blindness and low vision H54.10 ; Anxiety F41.9 and CAD (coronary artery disease) I25.10 [place] [address] [place] [id number] [place] [address] 96976- 6555 Nov, [place] [address] [place] [id number] [place] [address] 76868- 5911 Nov, [facility] [address] [place] [id number] [place] [address] 65165- 6164 Nov, [facility] [id number] [place] [address] 30196- 8964 Nov, [place] [address] [place] [id number] [place] [address] 76491- 4572 Nov, [facility] [address] [place] [id number] [place] [address] 51522- 9343 Nov, Encounter for immunization Z23 ; Sleep apnea, obstructive G47.33 ; Obesity E66.9 ; Hyperlipidemia E78.5 ; Glaucoma H40.9 ; Chronic pain G89.29 ; Anxiety F41.9 ; Chronic tension headaches G44.229 and HTN (hypertension ) I10 [facility] [address] 40190- 3303 Nov, [facility] [address] 84556- 5632 Nov, [facility] [address] 36832- 5653 Nov, Dizziness R42 [facility] [address] 36447- 6872 Nov, [facility] [address] 45646- 4236 Oct, [facility] [address] 36880- 2183 Oct, [facility] [address] 65924- 1212 Oct, [facility] [address] [place] [id number] [place] [address] 38089- 6573 Oct, [facility] [address] 25660- 6718 Oct, Dizziness 780.4 ; Essential hypertension 401.9 ; Obesity 278.00 ; Hyperlipidemia 272.4 ; Chronic pain 338.29 ; Glaucoma 365.9 and Anxiety 300.00 [facility] [address] [place] [id number] [place] [address] 62578- 2108 Oct, Essential hypertension 401.9 ; Hyperlipidemia 272.4 ; Glaucoma 365.9 ; Obesity 278.00 ; Chronic pain 338.29 and Allergy to insects V15.06 [facility] [address] [id number] [place] [address]- 4965 Sep, [facility] [address] [facility] [id number] [place] [address]- 0319 Sep, [facility] [address] [facility] [id number] [place] [address]- 7206 Sep, [facility] [address] [facility] [id number] [address]- 9692 Sep, [facility] [address] [facility] [id number] [address]- 3064 Aug, Essential hypertension 401.9 ; Obesity 278.00 ; Hyperlipidemia 272.4 ; Glaucoma 365.9 ; Lipoma 214.9 ; Mitral valve prolapse 424.0 ; Angina at rest 413.9 ; Lymphedema 457.1 and Chronic pain 338.29 IMMUNIZATIONS No Known Immunizations SOCIAL HISTORY Never Assessed REASON FOR VISIT Blood pressure check PLAN OF CARE VITAL SIGNS Height 67 in 2017-09-17 Blood pressure systolic 100 mmHg 2017-09-17 Blood pressure diastolic 82 mmHg 2017-09-17 MEDICATIONS Unknown Medications RESULTS No Results PROCEDURES [...]
--- OUTSIDE RECORDS SUMMARY | 2018-02-04 14:25 | XMS REPORT ---
Author Author ALENA ÁLVAREZ [facility] Address [address] [place] [address] Care Team Providers Care Crop Pest Control Specialist Name Role Phone ALENA ÁLVAREZ Unavailable PROBLEMS Type Condition ICD9-CM Code ZMX41-UR Code Onset Dates Condition Status SNOMED Code Problem Hyperlipidemia E78.5 Active 64048710 Problem Arrhythmia as indication for cardiac pacemaker replacement I49.9 Active 87460503 Problem Sleep apnea, obstructive G47.33 Active 10733522 Problem Primary insomnia F51.01 Active 1050461 Problem Chronic pain G89.29 Active 65816367 Problem Morbid (severe) obesity due to excess calories E66.01 Active 209219237 Problem Body mass index (BMI) of 40.0-44.9 in adult Z68.41 Active 943222750 Problem Other male erectile dysfunction N52.8 Active 473779163 Problem Supraventricular tachycardia I47.1 Active 3268067 Problem Sarcoidosis D86.9 Active 10779386 Problem HTN (hypertension) I10 Active 19910131 Problem Blindness and low vision H54.10 Active 174540572 Problem Myocarditis, unspecified chronicity, 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 Active 25398431 Problem Migraine without aura and without status migrainosus, not intractable G43.009 Active 623826484 Problem 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 Active 106531344 Problem Problems related to release from alf Z65.2 Active 139168853291903 Problem Chronic pain syndrome G89.4 Active 060764991 Problem Major depressive disorder, recurrent, moderate F33.1 Active 42722134 Problem Open-angle glaucoma of both eyes H40.10X0 Active 30083873 Problem Chronic tension headaches G44.229 Active 265794407 Problem Anxiety F41.9 Active 67140910 Problem Post-traumatic stress disorder, chronic F43.12 Active 377988473 Problem Environmental allergies Z91.09 Active 099507522 Problem Mitral valve prolapse I34.1 Active 336876952 Problem CAD (coronary artery disease) I25.10 Active 89030463 ALLERGIES No Information ENCOUNTERS Encounter Location Date Diagnosis [facility] [id number] [place] [address] 58050- 1452 Nov, [facility] [address] 91716- 5637 Oct, [facility] [address] 46245- 2537 Oct, [place] [address] 39480- 8147 Oct, Left leg pain M79.605 [place] [address] 99153- 8215 04 Oct, 2017 Post-traumatic stress disorder, unspecified F43.10 ; Major depressive disorder, recurrent, moderate F33.1 and Problems related to release from alf Z65.2 [place] [address] 87340- 6570 Sep, Arrhythmia as indication for cardiac pacemaker replacement I49.9 [place] [address] 56849- 4329 Sep, [place] [address] 10989- 7485 Sep, HTN (hypertension) I10 [place] [id number] [place] [address] 54284- 6192 Sep, [place] [address] 84076- 1065 Sep, Body mass index (BMI) of 40.0-44.9 in adult Z68.41 ; Chronic pain G89.29 and Supraventricular tachycardia I47.1 [facility] [id number] [place] [address] 35263- 7253 Sep, [facility] [address] 22585- 2766 13 Sep, 2017 Sarcoidosis D86.9 [facility] [address] [address] Sep, Sarcoidosis D86.9 [facility] [id number] [place] [address] 58286- 9866 Sep, [facility] [id number] [place] [address] 43797- 5596 Sep, [facility] [id number] [place] [address] 83987- 7536 Sep, [facility] [id number] [place] [address] 01636- 4619 Sep, [facility] [id number] [place] [address] 91321- 0012 Sep, Left leg pain M79.605 [facility] [id number] [place] [address] 48573- 4732 Sep, HTN (hypertension) I10 [facility] [address] [place] [address] 27032- 8201 Sep, [facility] [id number] [place] [address] 44571- 8392 Sep, Post-traumatic stress disorder, unspecified F43.10 ; Major depressive disorder, recurrent, moderate F33.1 and Problems related to release from alf Z65.2 [facility] [address] [place] [address] 45628- 1376 Sep, [facility] [address] [address] 2541 Aug, [facility] [id number] [place] [address] 27814- 5079 Aug, Sarcoidosis D86.9 [facility] [address] [address] 2546 Aug, Sarcoidosis D86.9 [facility] [id number] [place] [address] 82600- 8883 30 Aug, 2017 HTN (hypertension) I10 [place] [id number] [place] [address] 31826- 9801 18 Aug, 2017 Post-traumatic stress disorder, unspecified F43.10 ; Major depressive disorder, recurrent, moderate F33.1 and Problems related to release from alf Z65.2 [place] [address] 77327- 6757 11 Aug, 2017 [place] [address] 14341- 3551 Aug, Left leg pain M79.605 [place] [address] 58379- 1955 26 Jul, 2017 Post-traumatic stress disorder, chronic F43.12 ; Anxiety F41.9 ; Problems related to release from alf Z65.2 and BMI 40.0-44.9, adult Z68.41 [place] [address] 69936- 3760 20 Jul, 2017 HTN (hypertension) I10 ; Body mass index (BMI) of 40.0-44.9 in adult Z68.41 ; Acute swimmer''s ear of both sides H60.333 and Chronic pain G89.29 [place] [id number] [place] [address] 06883- 8281 19 Jul, 2017 Glaucoma H40.9 [place] [id number] [place] [address] 89646- 9360 14 Jul, 2017 [place] [id number] [place] [address] 53383- 5285 13 Jul, 2017 Sarcoidosis D86.9 [place] [address] 03530- 5640 Jul, Left leg pain M79.605 [place] [address] 69942- 3729 12 Jul, 2017 Sarcoidosis D86.9 [place] [id number] [address]- 6259 Jul, Post-traumatic stress disorder, unspecified F43.10 ; Major depressive disorder, recurrent, moderate F33.1 and Problems related to release from alf Z65.2 [facility] [id number] [address]- 2305 June, [facility] [id number] [place] [address] 41622 -2307 June, Sore throat J02.9 and BMI 40.0-44.9, adult Z68.41 [facility] [id number] [place] [address] 51234- 2150 June, [facility] [id number] [place] [address] 44031- 9572 June, [facility] [id number] [place] [address] 96296- 3778 June, [facility] [id number] [place] [address] 70695- 1434 June, Left leg pain M79.605 [facility] [id number] [place] [address] 57534- 3279 June, Sarcoidosis D86.9 [facility] [id number] [address]- 9582 June, [facility] [id number] [place] [address] 09526- 3465 June, [facility] [address] [address]- 2038 June, Left leg pain M79.605 [facility] [id number] [address]- 9563 May, [facility] [address] [address]- 9000 May, [facility] [id number] [address]- 0214 May, [facility] [id number] [place] [address] 52205- 1477 May, Left leg pain M79.605 [facility] [address] [place] [address] 12697- 8597 May, Post-traumatic stress disorder, unspecified F43.10 ; Major depressive disorder, recurrent, moderate F33.1 and Problems related to release from alf Z65.2 [place] [id number] [place] [address] 88221- 0533 May, Chronic pain G89.29 ; Anxiety F41.9 ; Chest pain, unspecified type R07.9 and BMI 40.0-44.9, adult Z68.41 [place] [id number] [place] [address] 59754- 2740 30 Apr, 2017 [place] [id number] [place] [address] 02782- 1098 Apr, Left leg pain M79.605 [place] [id number] [place] [address] 54373- 9488 27 Apr, 2017 Post-traumatic stress disorder, unspecified F43.10 ; Problems related to release from alf Z65.2 ; Anxiety F41.9 and BMI 40.0-44.9 , adult Z68.41 [place] [id number] [place] [address] 33227- 2413 Apr, [place] [id number] [place] [address] 43593- 0991 Apr, Left leg pain M79.605 [place] [id number] [place] [address] 66412- 7900 Apr, Post-traumatic stress disorder, unspecified F43.10 ; Major depressive disorder, recurrent, moderate F33.1 and Problems related to release from alf Z65.2 [place] [address] 03146- 7019 Apr, [facility] [address] 99936- 0615 12 Apr, 2017 Chronic pain G89.29 ; 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 [address] [id number] Mar, Dental examination Z01.20 [place] [address] 95124- 5516 Mar, [facility] [address] [place] [address] 24393 -7685 Mar, Cough R05 ; Viral gastroenteritis A08.4 and BMI 40.0-44.9, adult Z68.41 [place] [address] 37348- 1757 Mar, Left leg pain M79.605 [place] [address] 32215- 9369 06 Mar, 2017 Post-traumatic stress disorder, unspecified F43.10 ; Major depressive disorder, recurrent, moderate F33.1 and Problems related to release from alf Z65.2 [place] [address] 15331- 2852 Feb, Left leg pain M79.605 [place] [address] 64735- 6680 Feb, [facility] [id number] [place] [address] 60345- 4630 Feb, BMI 40.0-44.9, adult Z68.41 ; Chronic pain syndrome G89.4 ; Migraine without aura and without status migrainosus, not intractable G43.009 ; Mitral valve prolapse I34.1 and 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 [place] [address] 93279- 7929 Feb, Post-traumatic stress disorder, chronic F43.12 ; Anxiety F41.9 ; Problems related to release from alf Z65.2 and BMI 40.0-44.9, adult Z68.41 [place] [address] 77200- 6568 Feb, Post-traumatic stress disorder, unspecified F43.10 ; Major depressive disorder, recurrent, moderate F33.1 and Problems related to release from alf Z65.2 [place] [id number] [place] [address] 86717- 2981 Feb, Left leg pain M79.605 [place] [address] 23848- 9538 Jan, Post-traumatic stress disorder, unspecified F43.10 ; Major depressive disorder, recurrent, moderate F33.1 and Problems related to release from alf Z65.2 [place] [id number] [place] [address] 11167- 3959 Jan, [place] [id number] [place] [address] 45253- 8219 Jan, [place] [id number] [place] [address] 91586- 3924 Jan, Anxiety F41.9 [facility] [id number] [place] [address] 14786- 1185 Jan, Left leg pain M79.605 [place] [address] 50482- 6177 Dec, Left leg pain M79.605 [facility] [address] [place] [address] 06197- 6323 Dec, [facility] [id number] [place] [address] 12467- 2188 Dec, Post-traumatic stress disorder, unspecified F43.10 ; Major depressive disorder, recurrent, moderate F33.1 and Problems related to release from alf Z65.2 [facility] [id number] [place] [address] 88060- 6249 Nov, Chronic pain G89.29 and Anxiety F41.9 [place] [id number] [place] [address] 05413- 7273 Nov, Chronic pain G89.29 and Anxiety F41.9 [facility] [id number] [place] [address] 40220- 4588 16 Nov, 2016 Post-traumatic stress disorder, unspecified F43.10 ; Major depressive disorder, recurrent, moderate F33.1 and Problems related to release from alf Z65.2 [facility] [id number] [place] [address] 62489- 2244 09 Nov, 2016 Other abnormal findings in specimens from other organs, systems and tissues R89.8 ; Other male erectile dysfunction N52.8 ; Body mass index (BMI) of 40.0-44.9 in adult Z68.41 and Morbid (severe) obesity due to excess calories E66.01 [facility] [id number] [place] [address] 02039- 5783 02 Nov, 2016 Post-traumatic stress disorder, unspecified F43.10 ; Major depressive disorder, recurrent, moderate F33.1 and Problems related to release from alf Z65.2 [facility] [address] [place] [address] [id number] Oct, Dental examination Z01.20 [facility] [address] [place] [address] 53643- 6203 Oct, [place] [address] [place] [address] 30907- 0518 28 Oct, 2016 Encounter for immunization Z23 [place] [address] 32371- 7649 Oct, Chronic pain G89.29 ; Anxiety F41.9 ; Arrhythmia as indication for cardiac pacemaker replacement I49.9 and Glaucoma H40.9 [place] [id number] [place] [address] 28781- 9250 Oct, Anxiety F41.9 ; Post-traumatic stress disorder, chronic F43.12 and Problems related to release from alf Z65.2 [place] [id number] [place] [address] 26707- 0053 07 Oct, 2016 Post-traumatic stress disorder, unspecified F43.10 ; Major depressive disorder, recurrent, moderate F33.1 and Problems related to release from alf Z65.2 [place] [id number] [place] [address] 37491- 4564 Sep, Chronic pain G89.29 and Anxiety F41.9 [place] [id number] [place] [address] 93342- 7592 Sep, Post-traumatic stress disorder, unspecified F43.10 ; Major depressive disorder, recurrent, moderate F33.1 and Problems related to release from alf Z65.2 [place] [id number] [place] [address] 80815- 7578 Sep, Post-traumatic stress disorder, unspecified F43.10 ; Major depressive disorder, recurrent, moderate F33.1 and Problems related to release from alf Z65.2 [place] [id number] [place] [address] 74365- 7391 Sep, Chronic pain G89.29 [place] [id number] [place] [address] 32577- 7073 Aug, Dental caries, unspecified K02.9 [place] [id number] [place] [address] 90205- 5010 Aug, Sleep apnea, obstructive G47.33 ; Obesity E66.9 ; Chronic pain G89.29 ; HTN (hypertension) I10 ; Major depressive disorder, recurrent, moderate F33.1 ; Anxiety F41.9 ; Chronic tension headaches G44.229 ; Mitral valve prolapse I34.1 ; Arrhythmia as indication for cardiac pacemaker replacement I49.9 ; Dental caries, unspecified K02.9 ; Primary insomnia F51.01 and Hyperlipidemia E78.5 [place] [id number] [place] [address] 90945- 5974 Aug, Post-traumatic stress disorder, unspecified F43.10 ; Major depressive disorder, recurrent, moderate F33.1 and Problems related to release from alf Z65.2 [place] [id number] [place] [address] 98980- 8315 Aug, Dental examination Z01.20 [facility] [address] [id number] Aug, Dental examination Z01.20 [facility] [id number] [place] [address] 85290- 4125 Aug, Post-traumatic stress disorder, unspecified F43.10 ; Major depressive disorder, recurrent, moderate F33.1 and Problems related to release from alf Z65.2 [place] [id number] [place] [address] 10996- 5856 Aug, Chronic pain G89.29 and Primary insomnia F51.01 [facility] [id number] [place] [address] 77583- 8772 Jul, [facility] [id number] [place] [address] 33880- 2696 Jul, [place] [id number] [place] [address] 91830- 9825 Jul, Nausea R11.0 [facility] [id number] [place] [address] 05413- 1571 29 Abraham, 2017 Arrhythmia as indication for cardiac pacemaker replacement I49.9 [place] [address] [place] [address] 02552- 3939 13 Jul, 2016 Post-traumatic stress disorder, unspecified F43.10 ; Major depressive disorder, recurrent, moderate F33.1 and Problems related to release from alf Z65.2 [place] [id number] [place] [address] 04706- 2268 09 Jul, 2016 Anxiety F41.9 [place] [address] 01559- 7511 08 Jul, 2016 Chronic pain G89.[address] 75616- 3399 Jul, Sleep apnea, obstructive G47.33 ; Hyperlipidemia E78.5 ; Chronic pain G89.29 ; Blindness and low vision H54.10 ; Major depressive disorder, recurrent, moderate F33.1 ; Anxiety F41.9 ; Mitral valve prolapse I34.1 ; Arrhythmia as indication for cardiac pacemaker replacement I49.9 ; Primary insomnia F51.01 ; Bilateral headaches R51 and Environmental allergies Z91.09 [place] [id number] [place] [address] 10264- 0596 Jul, Post-traumatic stress disorder, unspecified F43.10 ; Major depressive disorder, recurrent, moderate F33.1 and Problems related to release from alf Z65.2 [place] [id number] [place] [address] 74711- 3156 June, Post-traumatic stress disorder, chronic F43.12 ; Anxiety F41.9 ; Problems related to release from alf Z65.2 ; Sleep apnea, obstructive G47.33 and Primary insomnia F51.01 [place] [id number] [place] [address] 83181- 3752 June, [place] [id number] [place] [address] 11096- 5594 June, [place] [id number] [place] [address] 19640- 6006 June, [place] [address] [place] [address] 93490- 1618 June, Chronic pain G89.29 [place] [id number] [place] [address] 82532- 6953 June, Chronic pain G89.29 [place] [address] [place] [address] 22605- 3556 June, Lipoma of left lower extremity D17.24 ; Open wound T14.8 and Swelling of left lower extremity M79.89 [place] [id number] [place] [address] 67824- 8531 June, Post-traumatic stress disorder, unspecified F43.10 ; Major depressive disorder, recurrent, moderate F33.1 and Problems related to release from alf Z65.2 [place] [id number] [place] [address] 49688- 1699 May, Lipoma of left lower extremity D17.24 ; Major depressive disorder, recurrent, moderate F33.1 ; Sleep apnea, obstructive G47.33 ; Hyperlipidemia E78.5 ; Obesity E66.9 ; HTN (hypertension) I10 ; Glaucoma H40.9 ; CAD (coronary artery disease) I25.10 ; Chronic tension headaches G44.229 ; Chronic pain G89.29 ; Anxiety F41.9 ; Nausea R11.0 and Primary insomnia F51.01 [place] [address] [place] [address] 84324- 5043 May, [place] [address] [place] [address] 43048- 8859 May, Chronic pain G89.29 [place] [id number] [place] [address] 80819- 1659 May, [place] [id number] [place] [address] 96591- 9657 Apr, Post-traumatic stress disorder, unspecified F43.10 ; Major depressive disorder, recurrent, moderate F33.1 and Problems related to release from alf Z65.2 [place] [id number] [address]- 1132 Apr, Primary insomnia F51.01 ; Post-traumatic stress disorder, chronic F43.12 and Problems related to release from alf Z65.2 [place] [id number] [place] [address] 11960- 4077 17 Apr, 2016 Post-traumatic stress disorder, unspecified F43.10 ; Major depressive disorder, recurrent, moderate F33.1 and Problems related to release from alf Z65.2 [place] [id number] [place] [address] 26787- 0712 16 Apr, 2016 [place] [id number] [place] [address] 97574- 9071 Apr, Sleep apnea, obstructive G47.33 ; Chronic pain G89.29 ; HTN (hypertension) I10 ; Mitral valve prolapse I34.1 ; Shoulder pain, left M25.512 ; Arrhythmia as indication for cardiac pacemaker replacement I49.9 ; Glaucoma H40.9 ; Bilateral headaches R51 ; Environmental allergies Z91.09 ; Primary insomnia F51.01 and Nausea R11.0 [place] [address] [place] [address] 40045- 8988 Apr, [place] [address] [place] [address] 15225- 8614 Apr, [place] [id number] [place] [address] 57636- 2786 Apr, Post-traumatic stress disorder, unspecified F43.10 ; Major depressive disorder, recurrent, moderate F33.1 and Problems related to release from alf Z65.2 [place] [address] [place] [address] [phone] Apr, HTN (hypertension) I10 [place] [address] [place] [id number] [place] [address] [phone] Apr, HTN (hypertension) I10 [place] [id number] [place] [address] [phone] 4882 14 Mar, 2016 Chronic pain G89.29 ; Primary insomnia F51.01 and Problems related to release from alf Z65.2 [place] [address] [place] [id number] [place] [address] [phone] 07 Mar, 2016 Post-traumatic stress disorder, unspecified F43.10 ; Major depressive disorder, recurrent, moderate F33.1 and Problems related to release from alf Z65.2 [place] [address] [place] [id number] [place] [address] [phone] Feb, Post-traumatic stress disorder, unspecified F43.10 ; Major depressive disorder, recurrent, moderate F33.1 and Problems related to release from alf Z65.2 [facility] [facility] [address] [id number] [place] [address] 18456- 2465 Feb, Chronic tension headaches G44.229 [place] [id number] [place] [address] 15007- 2337 Feb, Sleep apnea, obstructive G47.33 ; Obesity [...] pacemaker replacement I49.9 and Primary insomnia F51.01 [facility] [id number] [place] [address] 09650- 8502 17 Feb, 2016 Post-traumatic stress disorder, unspecified F43.10 and Chronic pain G89.29 [facility] [address] [id number] [place] [address] 20433- 3808 Feb, [facility] [id number] [place] [address] [id number] Feb, Dental caries K02.9 [place] [address] [place] [id number] [place] [address] 84193- 2531 Feb, [address] 87525- 3802 Feb, Post-traumatic stress disorder, unspecified F43.10 ; Major depressive disorder, recurrent, moderate F33.1 and Problems related to release from alf Z65.[address] 62308- 0817 Jan, Sleep apnea, obstructive G47.33 and Chronic pain G89.[address] 45147- 4132 Jan, [address] 22342- 1981 Jan, Dental examination Z01.[address] 86521- 4438 Jan, [facility] [address] 29429- 6107 Jan, [address] 14487- 9494 Dec, Post-traumatic stress disorder, unspecified F43.10 ; Major depressive disorder, recurrent, moderate F33.1 and Problems related to release from alf Z65.[address] 20963- 4849 Dec, Encounter for immunization Z23 ; Problems related to release from alf Z65.2 ; Sleep apnea, obstructive G47.33 and Post-traumatic stress disorder, chronic F43.[address] 91699- 2150 Dec, Sleep apnea, obstructive G47.33 ; Hyperlipidemia E78.5 ; Chronic pain G89.29 ; Glaucoma H40.9 ; HTN (hypertension) I10 ; Post-traumatic stress disorder, unspecified F43.10 ; Anxiety F41.9 ; Chronic tension headaches G44.229 ; Mitral valve prolapse I34.1 and CAD (coronary artery disease) I25.10 [facility] [address] [id number] [place] [address] 98169- 6415 Dec, Post-traumatic stress disorder, unspecified F43.10 ; Major depressive disorder, recurrent, moderate F33.1 and Problems related to release from alf Z65.2 [facility] [address] [id number] [place] [address] 09461- 3796 Nov, Chronic pain G89.29 [facility] [facility] [address] 22610- 7878 Nov, Post-traumatic stress disorder, unspecified F43.10 ; Major depressive disorder, recurrent, moderate F33.1 and Problems related to release from alf Z65.2 [facility] [facility] [id number] [place] [address] 18444- 5346 Oct, [facility] [facility] [address] 09679- 2287 Oct, [facility] [facility] [address] [id number] [place] [address] 37283- 5346 16 Oct, 2015 Post-traumatic stress disorder, unspecified F43.10 ; Major depressive disorder, recurrent, moderate F33.1 and Problems related to release from alf Z65.2 [facility] [id number] [place] [address] 03773- 3448 08 Oct, 2015 [facility] [address] [id number] [place] [address] 79832- 8037 07 Oct, 2015 Environmental allergies Z91.09 ; Cough R05 and Open-angle glaucoma of both eyes H40.10X0 [facility] [facility] [address] 75550- 6255 Sep, [facility] [facility] [address] [id number] [place] [address] 99092- 7453 Sep, Post-traumatic stress disorder, unspecified F43.10 ; Major depressive disorder, recurrent, moderate F33.1 and Problems related to release from alf Z65.2 [facility] [address] [place] [address] 95912- 6559 Sep, Chronic pain G89.29 [facility] [facility] [address] [id number] [place] [address] 71645- 0996 Sep, Pain in left shoulder M25.512 ; Pain in right shoulder M25.511 and Other chronic pain G89.29 [facility] [address] [id number] [place] [address] 23046- 3362 Sep, [facility] [address] [id number] [place] [address] 16510- 6191 Sep, [facility] [address] [id number] [place] [address] 73567- 5178 Sep, [facility] [id number] [place] [address] [id number] Aug, Dental examination Z01.20 [facility] [id number] [place] [address] 58914- 3665 Aug, Post-traumatic stress disorder, unspecified F43.10 ; Open- angle glaucoma of both eyes H40.10X0 and Problems related to release from alf Z65.2 [facility] [address] [place] [address] 34450- 0667 Aug, [facility] [address] [id number] [place] [address] 87217- 3121 Aug, Sleep apnea, obstructive G47.33 ; Obesity E66.9 ; Hyperlipidemia E78.5 ; Bilateral headaches R51 ; HTN (hypertension) I10 ; Post- traumatic stress disorder, unspecified F43.10 ; Anxiety F41.9 ; Neuropathy G62.9 ; Glaucoma H40.9 and Chronic pain G89.29 [facility] [id number] [place] [address] [id number] Aug, Encounter for dental examination Z01.20 [facility] [address] [id number] [place] [address] 57021- 2774 Aug, Post-traumatic stress disorder, unspecified F43.10 ; Major depressive disorder, recurrent, moderate F33.1 and Problems related to release from alf Z65.2 [facility] [address] [address] 9479 Aug, [facility] [address] [address]- 2313 Jul, [facility] [id number] [place] [address] 39010- 7698 Jul, Post-traumatic stress disorder, unspecified F43.10 and Major depressive disorder, recurrent, moderate F33.1 [facility] [id number] [place] [address] 78634- 0064 Jul, [facility] [id number] [place] [address] 68937- 9581 Jul, [facility] [id number] [place] [address] 50691- 6854 Jul, Chronic pain G89.29 [facility] [id number] [place] [address] 43398- 1874 June, Post-traumatic stress disorder, unspecified F43.10 and Major depressive disorder, recurrent, moderate F33.1 [facility] [address] [address]- 2734 June, [facility] [id number] [place] [address] 93626- 8416 June, Chronic pain G89.29 [facility] [address] [place] [address] 79410- 7272 June, Post-traumatic stress disorder, unspecified F43.10 and Major depressive disorder, recurrent, moderate F33.1 [facility] [address] [address]- 8436 May, Post-traumatic stress disorder, unspecified F43.10 and Major depressive disorder, recurrent, moderate F33.1 [facility] [address] [address]- 3249 15 May, 2015 [facility] [id number] [place] [address] 33586- 7806 08 May, 2015 [facility] [address] [address]- 2735 May, [facility] [id number] [place] [address] 67280- 4484 Apr, [facility] [id number] [place] [address] 69412- 3525 Apr, Post-traumatic stress disorder, unspecified F43.10 and Sleep apnea, obstructive G47.33 [facility] [address] [place] [address] 06322- 7396 Apr, [facility] [address] [id number] [place] [address] 50569- 9560 Apr, Shoulder pain, left M25.512 [facility] [id number] [place] [address] 70864- 8519 Apr, Post-traumatic stress disorder, unspecified F43.10 and Major depressive disorder, recurrent, moderate F33.1 [facility] [address] [address]- 1413 17 Apr, 2015 [facility] [id number] [place] [address] 82259- 7917 Apr, [facility] [address] [address]- 4975 Apr, [facility] [id number] [place] [address] 08084- 7451 07 Apr, 2015 Left shoulder pain M25.512 [facility] [address] [address]- 6279 Mar, [facility] [id number] [place] [address] 30357- 4228 Mar, [facility] [id number] [place] [address] 49062- 7038 Mar, [facility] [facility] [id number] [place] [address] 5015 Mar, Sleep apnea, obstructive G47.33 ; Obesity E66.9 ; Chronic pain G89.29 ; Hyperlipidemia E78.5 ; HTN (hypertension) I10 ; Blindness and low vision H54.10 ; Major depressive disorder, recurrent, moderate F33.1 and Anxiety F41.9 [facility] [id number] [place] [address] 85522- 8614 Mar, [facility] [id number] [place] [address] 27231- 9465 Mar, Post-traumatic stress disorder, unspecified F43.10 and Major depressive disorder, recurrent, moderate F33.1 [facility] [id number] [place] [address] 51243- 5208 Mar, [facility] [facility] [id number] [place] [address] 25640- 1859 Mar, HTN (hypertension) I10 ; Blindness and low vision H54.10 ; Obesity E66.9 ; Hyperlipidemia E78.5 ; Glaucoma H40.9 ; Chronic pain G89.29 and CAD (coronary artery disease) I25.10 [facility] [address] [id number] [place] [address] 07160- 8073 Feb, [facility] [facility] [address] [address] [id number] [place] [address] 75027- 3305 Feb, Post-traumatic stress disorder, unspecified F43.10 ; Obesity E66.9 ; Sleep apnea, obstructive G47.33 and Open-angle glaucoma of both eyes H40.10X0 [facility] [facility] [address] [id number] [place] [address] 24001- 9254 Feb, Post-traumatic stress disorder, unspecified F43.10 and Major depressive disorder, recurrent, moderate F33.1 [facility] [address] [id number] [place] [address] 99158- 3881 Feb, [facility] [facility] [address] 43284- 7012 Feb, [place] [address] [address] [id number] [place] [address] 19003- 5550 Feb, HTN (hypertension) I10 ; Post-traumatic stress disorder, unspecified F43.10 ; Blindness and low vision H54.10 ; Obesity E66.9 ; Hyperlipidemia E78.5 ; Chronic pain G89.29 ; Glaucoma H40.9 ; Mitral valve prolapse I34.1 and Bilateral headaches R51 [place] [address] 18585- 6812 Feb, [facility] [facility] [address] [address] [id number] [place] [address] 98859- 1328 Feb, Post-traumatic stress disorder, unspecified F43.10 and Major depressive disorder, recurrent, moderate F33.1 [facility] [address] [id number] [place] [address] 96687- 2929 Feb, [facility] [facility] [address] 82732- 0008 Feb, [place] [address] [address] [id number] [place] [address] 79882- 2885 Jan, [facility] [address] [address] [id number] [place] [address] 54791- 2965 Jan, [facility] [address] [address] [id number] [place] [address] 73049- 9874 Jan, Obesity E66.9 ; HTN (hypertension) I10 ; Blindness and low vision H54.10 ; Major depressive disorder, recurrent, moderate F33.1 ; Glaucoma H40.9 ; Hyperlipidemia E78.5 ; Sleep apnea, obstructive G47.33 ; Chronic pain G89.29 ; Anxiety F41.9 ; Chronic tension headaches G44.229 and Cough R05 [facility] [address] [address] [id number] [place] [address] 85248- 9287 Jan, [facility] [address] [address] [id number] [place] [address] 99827- 9412 Jan, [facility] [address] [address] [id number] [place] [address] 78241- 1733 Jan, Post-traumatic stress disorder, unspecified F43.10 ; Obesity E66.9 ; Sleep apnea, obstructive G47.33 and Open-angle glaucoma of both eyes H40.10X0 [facility] [address] [place] [address] [id number] [place] [address] 35360- 8342 Jan, [facility] [address] [address] [id number] [place] [address] 91668- 3578 Jan, Post-traumatic stress disorder, unspecified F43.10 and Major depressive disorder, recurrent, moderate F33.1 [facility] [address] [id number] [place] [address] 11007- 8262 Dec, [facility] [address] [address] [id number] [place] [address] 17907- 2463 Dec, Sleep apnea, obstructive G47.33 ; Obesity E66.9 ; Hyperlipidemia E78.5 ; Glaucoma H40.9 ; Chronic pain G89.29 ; HTN (hypertension ) I10 ; Blindness and low vision H54.10 ; Anxiety F41.9 and CAD (coronary artery disease) I25.10 [facility] [address] [id number] [place] [address] 70461- 4522 Nov, [facility] [address] [address] [id number] [place] [address] 74931- 1561 Nov, [facility] [id number] [place] [address] 46398- 6865 Nov, [facility] [id number] [place] [address] 76518- 0042 Nov, [facility] [id number] [place] [address] 99340- 9663 Nov, [facility] [id number] [place] [address] 02358- 1404 Nov, Encounter for immunization Z23 ; Sleep apnea, obstructive G47.33 ; Obesity E66.9 ; Hyperlipidemia E78.5 ; Glaucoma H40.9 ; Chronic pain G89.29 ; Anxiety F41.9 ; Chronic tension headaches G44.229 and HTN (hypertension ) I10 [facility] [address] 40897- 9291 Nov, [facility] [address] 77378- 9408 Nov, [facility] [address] 32183- 2024 Nov, Dizziness R42 [facility] [address] 23910- 6323 Nov, [facility] [address] 48950- 7279 Oct, [facility] [address] 72946- 3136 Oct, [facility] [address] 34741- 7949 Oct, [facility] [address] [id number] [place] [address] 42720- 5511 Oct, [facility] [address] 44857- 7623 Oct, Dizziness 780.4 ; Essential hypertension 401.9 ; Obesity 278.00 ; Hyperlipidemia 272.4 ; Chronic pain 338.29 ; Glaucoma 365.9 and Anxiety 300.00 [facility] [id number] [place] [address] 79388- 9525 Oct, Essential hypertension 401.9 ; Hyperlipidemia 272.4 ; Glaucoma 365.9 ; Obesity 278.00 ; Chronic pain 338.29 and Allergy to insects V15.06 [facility] [id number] [address]- 6984 Sep, [facility] [address] [facility] [id number] [place] [address]- 5751 Sep, [facility] [address] [facility] [id number] [place] [address]- 0123 Sep, [facility] [address] [facility] [id number] [address]- 1361 Sep, [facility] [address] [facility] [id number] [address]- 8350 Aug, Essential hypertension 401.9 ; Obesity 278.00 ; Hyperlipidemia 272.4 ; Glaucoma 365.9 ; Lipoma 214.9 ; Mitral valve prolapse 424.0 ; Angina at rest 413.9 ; Lymphedema 457.1 and Chronic pain 338.29 IMMUNIZATIONS No Known Immunizations SOCIAL HISTORY Never Assessed REASON FOR VISIT Blood pressure check-awoods PLAN OF CARE VITAL SIGNS Height 67 in 2017-09-15 Blood pressure systolic 122 mmHg 2017-09-15 Blood pressure diastolic 78 mmHg 2017-09-15 MEDICATIONS Unknown Medications RESULTS No Results PROCEDURES [...]
--- OUTSIDE RECORDS SUMMARY | 2018-02-04 14:25 | XMS REPORT ---
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 Phone ALENA ÁLVAREZ Unavailable PROBLEMS Type Condition ICD9-CM Code SSV15-UQ Code Onset Dates Condition Status SNOMED Code Problem Hyperlipidemia E78.5 Active 34170414 Problem Arrhythmia as indication for cardiac pacemaker replacement I49.9 Active 73514547 Problem Sleep apnea, obstructive G47.33 Active 92308400 Problem Primary insomnia F51.01 Active 1958829 Problem Chronic pain G89.29 Active 03610388 Problem Morbid (severe) obesity due to excess calories E66.01 Active 156090358 Problem Body mass index (BMI) of 40.0-44.9 in adult Z68.41 Active 096702615 Problem Other male erectile dysfunction N52.8 Active 842607534 Problem Supraventricular tachycardia I47.1 Active 4491422 Problem Sarcoidosis D86.9 Active 44946525 Problem HTN (hypertension) I10 Active 75998409 Problem Blindness and low vision H54.10 Active 253289696 Problem Myocarditis, unspecified chronicity, 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 Active 56129955 Problem Migraine without aura and without status migrainosus, not intractable G43.009 Active 593371439 Problem 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 Active 906663297 Problem Problems related to release from half-way Z65.2 Active 816128798966078 Problem Chronic pain syndrome G89.4 Active 901911862 Problem Major depressive disorder, recurrent, moderate F33.1 Active 04473450 Problem Open-angle glaucoma of both eyes H40.10X0 Active 93191378 Problem Chronic tension headaches G44.229 Active 135726566 Problem Anxiety F41.9 Active 43668239 Problem Post-traumatic stress disorder, chronic F43.12 Active 910886519 Problem Environmental allergies Z91.09 Active 120965408 Problem Mitral valve prolapse I34.1 Active 551807786 Problem CAD (coronary artery disease) I25.10 Active 99444608 ALLERGIES No Information ENCOUNTERS Encounter Location Date Diagnosis [facility] [id number] [place] [address] 99052- 3230 Nov, [facility] [address] 27934- 0780 Oct, [facility] [address] 58761- 7804 Oct, [place] [address] 53628- 1726 Oct, Left leg pain M79.605 [place] [address] 40000- 9815 04 Oct, 2017 Post-traumatic stress disorder, unspecified F43.10 ; Major depressive disorder, recurrent, moderate F33.1 and Problems related to release from half-way Z65.2 [place] [address] 82026- 5809 Sep, Arrhythmia as indication for cardiac pacemaker replacement I49.9 [place] [address] 11768- 9488 Sep, [place] [address] 75928- 7528 Sep, HTN (hypertension) I10 [place] [id number] [place] [address] 44953- 8902 Sep, [place] [address] 58121- 4551 Sep, Body mass index (BMI) of 40.0-44.9 in adult Z68.41 ; Chronic pain G89.29 and Supraventricular tachycardia I47.1 [facility] [id number] [place] [address] 94285- 3094 Sep, [facility] [address] 21932- 1380 13 Sep, 2017 Sarcoidosis D86.9 [facility] [address], [place] [address] 8826 Sep, Sarcoidosis D86.9 [facility] [id number] [place] [address] 71101- 3976 Sep, [facility] [id number] [place] [address] 44460- 3136 Sep, [facility] [id number] [place] [address] 42972- 9238 Sep, [facility] [id number] [place] [address] 80506- 6140 Sep, [facility] [id number] [place] [address] 58929- 7103 Sep, Left leg pain M79.605 [facility] [id number] [place] [address] 68344- 9476 Sep, HTN (hypertension) I10 [facility] [address] [place] [address] 32072- 0572 Sep, [facility] [id number] [place] [address] 55214- 6200 Sep, Post-traumatic stress disorder, unspecified F43.10 ; Major depressive disorder, recurrent, moderate F33.1 and Problems related to release from half-way Z65.2 [facility] [address] [place] [address] 78010- 6556 Sep, [facility] [address] [place] [address] 2545 Aug, [facility] [id number] [place] [address] 31021- 7196 Aug, Sarcoidosis D86.9 [facility] [address], [place] [address] 2546 Aug, Sarcoidosis D86.9 [facility] [id number] [place] [address] 27980- 5757 30 Aug, 2017 HTN (hypertension) I10 [place] [id number] [place] [address] 93761- 5155 18 Aug, 2017 Post-traumatic stress disorder, unspecified F43.10 ; Major depressive disorder, recurrent, moderate F33.1 and Problems related to release from half-way Z65.2 [place] [address] 45965- 8101 11 Aug, 2017 [place] [address] 64514- 4047 Aug, Left leg pain M79.605 [place] [address] 02326- 9966 26 Jul, 2017 Post-traumatic stress disorder, chronic F43.12 ; Anxiety F41.9 ; Problems related to release from half-way Z65.2 and BMI 40.0-44.9, adult Z68.41 [place] [address] 86181- 3099 20 Jul, 2017 HTN (hypertension) I10 ; Body mass index (BMI) of 40.0-44.9 in adult Z68.41 ; Acute swimmer''s ear of both sides H60.333 and Chronic pain G89.29 [place] [id number] [place] [address] 57786- 2944 19 Jul, 2017 Glaucoma H40.9 [place] [id number] [place] [address] 58970- 8439 14 Jul, 2017 [place] [id number] [place] [address] 44690- 3572 13 Jul, 2017 Sarcoidosis D86.9 [place] [address] 77973- 7255 Jul, Left leg pain M79.605 [place] [address] 64705- 4714 12 Jul, 2017 Sarcoidosis D86.9 [place] [id number] [address]- 1408 Jul, Post-traumatic stress disorder, unspecified F43.10 ; Major depressive disorder, recurrent, moderate F33.1 and Problems related to release from half-way Z65.2 [facility] [address] [address]99 June, [facility] [id number] [place] [address] 33989 -4634 June, Sore throat J02.9 and BMI 40.0-44.9, adult Z68.41 [facility] [id number] [place] [address] 45294- 7914 June, [facility] [id number] [place] [address] 93139- 4725 June, [facility] [id number] [place] [address] 39096- 4533 June, [facility] [id number] [place] [address] 59797- 1950 June, Left leg pain M79.605 [facility] [id number] [place] [address] 80725- 4231 June, Sarcoidosis D86.9 [facility] [id number] [address]- 2801 June, [facility] [id number] [place] [address] 55407- 1831 June, [facility] [address], [place] [address]- 6878 June, Left leg pain M79.605 [facility] [id number] [address]- 1530 May, [facility] [address], [place] [address]- 0415 May, [facility] [id number] [place] [address]- 4930 May, [facility] [id number] [place] [address] 44860- 4902 May, Left leg pain M79.605 [facility] [address] [place] [address] 91540- 4387 May, Post-traumatic stress disorder, unspecified F43.10 ; Major depressive disorder, recurrent, moderate F33.1 and Problems related to release from half-way Z65.2 [place] [id number] [place] [address] 23751- 4955 May, Chronic pain G89.29 ; Anxiety F41.9 ; Chest pain, unspecified type R07.9 and BMI 40.0-44.9, adult Z68.41 [place] [id number] [place] [address] 71202- 1194 30 Apr, 2017 [place] [id number] [place] [address] 60649- 4125 Apr, Left leg pain M79.605 [place] [id number] [place] [address] 78766- 1300 27 Apr, 2017 Post-traumatic stress disorder, unspecified F43.10 ; Problems related to release from half-way Z65.2 ; Anxiety F41.9 and BMI 40.0-44.9 , adult Z68.41 [place] [id number] [place] [address] 37594- 4536 Apr, [place] [id number] [place] [address] 80898- 2824 Apr, Left leg pain M79.605 [place] [id number] [place] [address] 35611- 5594 Apr, Post-traumatic stress disorder, unspecified F43.10 ; Major depressive disorder, recurrent, moderate F33.1 and Problems related to release from half-way Z65.2 [place] [address] 18486- 2958 Apr, [facility] [address] 09222- 9561 12 Apr, 2017 Chronic pain G89.29 ; 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 ; Morbid (severe) obesity due to excess calories E66.01 ; Anxiety F41.9 and BMI 40.0-44.9, adult Z68.41 [facility] [address] 09024 -0527 Apr, Sore throat J02.9 and BMI 40.0-44.9, adult Z68.[address] 64398- 7857 02 Apr, 2017 Left leg pain M79.605 [facility] [address] [id number] Mar, Dental examination Z01.20 [place] [address] 51711- 8356 Mar, [facility] [address] [place] [address] 45826 -9790 Mar, Cough R05 ; Viral gastroenteritis A08.4 and BMI 40.0-44.9, adult Z68.41 [place] [address] 45138- 9729 Mar, Left leg pain M79.605 [place] [address] 02678- 6253 06 Mar, 2017 Post-traumatic stress disorder, unspecified F43.10 ; Major depressive disorder, recurrent, moderate F33.1 and Problems related to release from half-way Z65.2 [place] [address] 36596- 7937 Feb, Left leg pain M79.605 [place] [address] 74943- 4570 Feb, [facility] [id number] [place] [address] 94454- 2422 Feb, BMI 40.0-44.9, adult Z68.41 ; Chronic pain syndrome G89.4 ; Migraine without aura and without status migrainosus, not intractable G43.009 ; Mitral valve prolapse I34.1 and 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 [place] [address] 88640- 0665 Feb, Post-traumatic stress disorder, chronic F43.12 ; Anxiety F41.9 ; Problems related to release from half-way Z65.2 and BMI 40.0-44.9, adult Z68.41 [place] [address] 07574- 6349 Feb, Post-traumatic stress disorder, unspecified F43.10 ; Major depressive disorder, recurrent, moderate F33.1 and Problems related to release from half-way Z65.2 [place] [id number] [place] [address] 05781- 5735 Feb, Left leg pain M79.605 [place] [address] 77546- 6161 Jan, Post-traumatic stress disorder, unspecified F43.10 ; Major depressive disorder, recurrent, moderate F33.1 and Problems related to release from half-way Z65.2 [place] [id number] [place] [address] 84821- 4610 Jan, [place] [id number] [place] [address] 27540- 3054 Jan, [place] [id number] [place] [address] 38517- 8694 Jan, Anxiety F41.9 [facility] [id number] [place] [address] 71214- 1505 Jan, Left leg pain M79.605 [place] [address] 00726- 7728 Dec, Left leg pain M79.605 [facility] [address] [place] [address] 08882- 4431 Dec, [facility] [id number] [place] [address] 46769- 5302 Dec, Post-traumatic stress disorder, unspecified F43.10 ; Major depressive disorder, recurrent, moderate F33.1 and Problems related to release from half-way Z65.2 [facility] [id number] [place] [address] 17021- 8579 Nov, Chronic pain G89.29 and Anxiety F41.9 [place] [id number] [place] [address] 77533- 3185 Nov, Chronic pain G89.29 and Anxiety F41.9 [facility] [id number] [place] [address] 18658- 3283 16 Nov, 2016 Post-traumatic stress disorder, unspecified F43.10 ; Major depressive disorder, recurrent, moderate F33.1 and Problems related to release from half-way Z65.2 [facility] [id number] [place] [address] 73078- 3565 09 Nov, 2016 Other abnormal findings in specimens from other organs, systems and tissues R89.8 ; Other male erectile dysfunction N52.8 ; Body mass index (BMI) of 40.0-44.9 in adult Z68.41 and Morbid (severe) obesity due to excess calories E66.01 [facility] [id number] [place] [address] 85278- 2381 02 Nov, 2016 Post-traumatic stress disorder, unspecified F43.10 ; Major depressive disorder, recurrent, moderate F33.1 and Problems related to release from half-way Z65.2 [facility] [address] [place] [address] [id number] Oct, Dental examination Z01.20 [facility] [address] [place] [address] 08590- 4163 Oct, [place] [address] [place] [address] 11209- 6416 28 Oct, 2016 Encounter for immunization Z23 [place] [address] 69065- 0186 Oct, Chronic pain G89.29 ; Anxiety F41.9 ; Arrhythmia as indication for cardiac pacemaker replacement I49.9 and Glaucoma H40.9 [place] [id number] [place] [address] 66387- 6817 Oct, Anxiety F41.9 ; Post-traumatic stress disorder, chronic F43.12 and Problems related to release from half-way Z65.2 [place] [id number] [place] [address] 91527- 2984 07 Oct, 2016 Post-traumatic stress disorder, unspecified F43.10 ; Major depressive disorder, recurrent, moderate F33.1 and Problems related to release from half-way Z65.2 [place] [id number] [place] [address] 38792- 8281 Sep, Chronic pain G89.29 and Anxiety F41.9 [place] [id number] [place] [address] 81886- 9405 Sep, Post-traumatic stress disorder, unspecified F43.10 ; Major depressive disorder, recurrent, moderate F33.1 and Problems related to release from half-way Z65.2 [place] [id number] [place] [address] 32953- 8677 Sep, Post-traumatic stress disorder, unspecified F43.10 ; Major depressive disorder, recurrent, moderate F33.1 and Problems related to release from half-way Z65.2 [place] [id number] [place] [address] 80616- 6861 Sep, Chronic pain G89.29 [place] [id number] [place] [address] 44072- 6420 Aug, Dental caries, unspecified K02.9 [place] [id number] [place] [address] 59630- 7621 Aug, Sleep apnea, obstructive G47.33 ; Obesity E66.9 ; Chronic pain G89.29 ; HTN (hypertension) I10 ; Major depressive disorder, recurrent, moderate F33.1 ; Anxiety F41.9 ; Chronic tension headaches G44.229 ; Mitral valve prolapse I34.1 ; Arrhythmia as indication for cardiac pacemaker replacement I49.9 ; Dental caries, unspecified K02.9 ; Primary insomnia F51.01 and Hyperlipidemia E78.5 [place] [id number] [place] [address] 17869- 6371 Aug, Post-traumatic stress disorder, unspecified F43.10 ; Major depressive disorder, recurrent, moderate F33.1 and Problems related to release from half-way Z65.2 [place] [id number] [place] [address] 20633- 7426 Aug, Dental examination Z01.20 [facility] [address] [id number] Aug, Dental examination Z01.20 [facility] [id number] [place] [address] 92779- 0041 Aug, Post-traumatic stress disorder, unspecified F43.10 ; Major depressive disorder, recurrent, moderate F33.1 and Problems related to release from half-way Z65.2 [place] [id number] [place] [address] 37530- 9771 Aug, Chronic pain G89.29 and Primary insomnia F51.01 [facility] [id number] [place] [address] 76138- 2116 Jul, [facility] [id number] [place] [address] 85685- 7960 Jul, [place] [id number] [place] [address] 97897- 3220 Jul, Nausea R11.0 [facility] [id number] [place] [address] 87640- 4902 29 Abraham, 2017 Arrhythmia as indication for cardiac pacemaker replacement I49.9 [place] [address] [place] [address] 71689- 2420 13 Jul, 2016 Post-traumatic stress disorder, unspecified F43.10 ; Major depressive disorder, recurrent, moderate F33.1 and Problems related to release from half-way Z65.2 [place] [id number] [place] [address] 08141- 9640 09 Jul, 2016 Anxiety F41.9 [place] [address] 50497- 5835 08 Jul, 2016 Chronic pain G89.[address] 42708- 6630 Jul, Sleep apnea, obstructive G47.33 ; Hyperlipidemia E78.5 ; Chronic pain G89.29 ; Blindness and low vision H54.10 ; Major depressive disorder, recurrent, moderate F33.1 ; Anxiety F41.9 ; Mitral valve prolapse I34.1 ; Arrhythmia as indication for cardiac pacemaker replacement I49.9 ; Primary insomnia F51.01 ; Bilateral headaches R51 and Environmental allergies Z91.09 [place] [id number] [place] [address] 28932- 7660 Jul, Post-traumatic stress disorder, unspecified F43.10 ; Major depressive disorder, recurrent, moderate F33.1 and Problems related to release from half-way Z65.2 [place] [id number] [place] [address] 60631- 1151 June, Post-traumatic stress disorder, chronic F43.12 ; Anxiety F41.9 ; Problems related to release from half-way Z65.2 ; Sleep apnea, obstructive G47.33 and Primary insomnia F51.01 [place] [id number] [place] [address] 61023- 5787 June, [place] [id number] [place] [address] 89558- 4976 June, [place] [id number] [place] [address] 74605- 5721 June, [place] [address] [place] [address] 02066- 0076 June, Chronic pain G89.29 [place] [id number] [place] [address] 13598- 2384 June, Chronic pain G89.29 [place] [address] [place] [address] 04837- 8375 June, Lipoma of left lower extremity D17.24 ; Open wound T14.8 and Swelling of left lower extremity M79.89 [place] [id number] [place] [address] 58882- 7570 June, Post-traumatic stress disorder, unspecified F43.10 ; Major depressive disorder, recurrent, moderate F33.1 and Problems related to release from half-way Z65.2 [place] [id number] [place] [address] 49111- 2360 May, Lipoma of left lower extremity D17.24 ; Major depressive disorder, recurrent, moderate F33.1 ; Sleep apnea, obstructive G47.33 ; Hyperlipidemia E78.5 ; Obesity E66.9 ; HTN (hypertension) I10 ; Glaucoma H40.9 ; CAD (coronary artery disease) I25.10 ; Chronic tension headaches G44.229 ; Chronic pain G89.29 ; Anxiety F41.9 ; Nausea R11.0 and Primary insomnia F51.01 [place] [address] [place] [address] 87505- 5254 May, [place] [address] [place] [address] 31314- 0134 May, Chronic pain G89.29 [place] [id number] [place] [address] 75942- 5098 May, [place] [id number] [place] [address] 03556- 8895 Apr, Post-traumatic stress disorder, unspecified F43.10 ; Major depressive disorder, recurrent, moderate F33.1 and Problems related to release from half-way Z65.2 [place] [address] [address]- 6791 Apr, Primary insomnia F51.01 ; Post-traumatic stress disorder, chronic F43.12 and Problems related to release from half-way Z65.2 [place] [id number] [place] [address] 54298- 3591 17 Apr, 2016 Post-traumatic stress disorder, unspecified F43.10 ; Major depressive disorder, recurrent, moderate F33.1 and Problems related to release from half-way Z65.2 [place] [id number] [place] [address] 08870- 3727 16 Apr, 2016 [place] [id number] [place] [address] 20195- 6306 Apr, Sleep apnea, obstructive G47.33 ; Chronic pain G89.29 ; HTN (hypertension) I10 ; Mitral valve prolapse I34.1 ; Shoulder pain, left M25.512 ; Arrhythmia as indication for cardiac pacemaker replacement I49.9 ; Glaucoma H40.9 ; Bilateral headaches R51 ; Environmental allergies Z91.09 ; Primary insomnia F51.01 and Nausea R11.0 [place] [address] [place] [address] 15061- 2674 Apr, [place] [address] [place] [address] 26055- 2012 Apr, [place] [id number] [place] [address] 97966- 1617 Apr, Post-traumatic stress disorder, unspecified F43.10 ; Major depressive disorder, recurrent, moderate F33.1 and Problems related to release from half-way Z65.2 [place] [address] [place] [address] 50662- 6107 Apr, HTN (hypertension) I10 [place] [id number] [place] [address] 00126- 5004 Apr, HTN (hypertension) I10 [place] [address] [place] [address] 12802- 4926 14 Mar, 2016 Chronic pain G89.29 ; Primary insomnia F51.01 and Problems related to release from half-way Z65.2 [place] [address] [place] [id number] [place] [address] 71027- 1528 07 Mar, 2016 Post-traumatic stress disorder, unspecified F43.10 ; Major depressive disorder, recurrent, moderate F33.1 and Problems related to release from half-way Z65.2 [place] [address] [place] [id number] [place] [address] 20970- 0965 Feb, Post-traumatic stress disorder, unspecified F43.10 ; Major depressive disorder, recurrent, moderate F33.1 and Problems related to release from half-way Z65.2 [place] [address] [place] [id number] [place] [address] 48495- 3449 Feb, Chronic tension headaches G44.229 [place] [id number] [place] [address] 94927- 4531 Feb, Sleep apnea, obstructive G47.33 ; Obesity [...] pacemaker replacement I49.9 and Primary insomnia F51.01 [place] [id number] [place] [address] 44333- 4962 17 Feb, 2016 Post-traumatic stress disorder, unspecified F43.10 and Chronic pain G89.29 [place] [address] [place] [id number] [place] [address] 70855- 2310 Feb, [facility] [id number] [place] [address] [id number] Feb, Dental caries K02.9 [place] [address] [place] [address] [id number] [place] [address] 48150- 9361 Feb, [address] 67343- 6717 Feb, Post-traumatic stress disorder, unspecified F43.10 ; Major depressive disorder, recurrent, moderate F33.1 and Problems related to release from half-way Z65.[address] 46532- 4258 Jan, Sleep apnea, obstructive G47.33 and Chronic pain G89.[address] 66728- 7613 Jan, [address] 48623- 5772 Jan, Dental examination Z01.[address] 67518- 3100 Jan, [place] [address] 73625- 4348 Jan, [address] 54772- 1405 Dec, Post-traumatic stress disorder, unspecified F43.10 ; Major depressive disorder, recurrent, moderate F33.1 and Problems related to release from half-way Z65.[address] 88101- 2200 Dec, Encounter for immunization Z23 ; Problems related to release from half-way Z65.2 ; Sleep apnea, obstructive G47.33 and Post-traumatic stress disorder, chronic F43.[address] 73895- 7518 Dec, Sleep apnea, obstructive G47.33 ; Hyperlipidemia E78.5 ; Chronic pain G89.29 ; Glaucoma H40.9 ; HTN (hypertension) I10 ; Post-traumatic stress disorder, unspecified F43.10 ; Anxiety F41.9 ; Chronic tension headaches G44.229 ; Mitral valve prolapse I34.1 and CAD (coronary artery disease) I25.10 [place] [id number] [place] [address] 19577- 0735 Dec, Post-traumatic stress disorder, unspecified F43.10 ; Major depressive disorder, recurrent, moderate F33.1 and Problems related to release from half-way Z65.2 [place] [id number] [place] [address] 85682- 0460 Nov, Chronic pain G89.29 [place] [address] 65341- 2925 Nov, Post-traumatic stress disorder, unspecified F43.10 ; Major depressive disorder, recurrent, moderate F33.1 and Problems related to release from half-way Z65.2 [place] [address] [id number] [place] [address] 71837- 2080 Oct, [place] [address] 69623- 2180 Oct, [place] [address] [address] [id number] [place] [address] 37993- 6882 16 Oct, 2015 Post-traumatic stress disorder, unspecified F43.10 ; Major depressive disorder, recurrent, moderate F33.1 and Problems related to release from half-way Z65.2 [place] [id number] [place] [address] 07692- 0899 08 Oct, 2015 [place] [address] [address] [id number] [place] [address] 21713- 5403 07 Oct, 2015 Environmental allergies Z91.09 ; Cough R05 and Open-angle glaucoma of both eyes H40.10X0 [place] [address] 93587- 9881 Sep, [place] [address] [address] [id number] [place] [address] 93416- 1558 Sep, Post-traumatic stress disorder, unspecified F43.10 ; Major depressive disorder, recurrent, moderate F33.1 and Problems related to release from half-way Z65.2 [place] [id number] [place] [address] 46311- 1622 Sep, Chronic pain G89.29 [place] [id number] [place] [address] 97089- 9067 Sep, Pain in left shoulder M25.512 ; Pain in right shoulder M25.511 and Other chronic pain G89.29 [place] [address] [address] [id number] [place] [address] 90298- 9302 Sep, [place] [address] [id number] [place] [address] 49799- 5585 Sep, [place] [id number] [place] [address] 60284- 3265 Sep, [facility] [id number] [place] [address] [id number] Aug, Dental examination Z01.20 [place] [id number] [place] [address] 98574- 0087 Aug, Post-traumatic stress disorder, unspecified F43.10 ; Open- angle glaucoma of both eyes H40.10X0 and Problems related to release from half-way Z65.2 [place] [id number] [place] [address] 84019- 7444 Aug, [place] [address] [address] [id number] [place] [address] 13865- 1315 Aug, Sleep apnea, obstructive G47.33 ; Obesity E66.9 ; Hyperlipidemia E78.5 ; Bilateral headaches R51 ; HTN (hypertension) I10 ; Post- traumatic stress disorder, unspecified F43.10 ; Anxiety F41.9 ; Neuropathy G62.9 ; Glaucoma H40.9 and Chronic pain G89.29 [facility] [id number] [place] [address] [id number] Aug, Encounter for dental examination Z01.20 [place] [id number] [place] [address] 31245- 4355 Aug, Post-traumatic stress disorder, unspecified F43.10 ; Major depressive disorder, recurrent, moderate F33.1 and Problems related to release from half-way Z65.2 [facility] [address] [address]- 9484 Aug, [facility] [address], [place] [address]- 9297 Jul, [facility] [address] [id number] [place] [address] 12815- 3296 Jul, Post-traumatic stress disorder, unspecified F43.10 and Major depressive disorder, recurrent, moderate F33.1 [facility] [address] [id number] [place] [address] 99271- 1543 Jul, [facility] [address] [id number] [place] [address] 83318- 3200 Jul, [facility] [address] [id number] [place] [address] 05343- 2978 Jul, Chronic pain G89.29 [facility] [id number] [place] [address] 61481- 1243 June, Post-traumatic stress disorder, unspecified F43.10 and Major depressive disorder, recurrent, moderate F33.1 [facility] [address], [place] [address]- 5914 June, [facility] [id number] [place] [address] 48576- 4811 June, Chronic pain G89.29 [facility] [address] [place] [address] 37033- 6705 June, Post-traumatic stress disorder, unspecified F43.10 and Major depressive disorder, recurrent, moderate F33.1 [facility] [address], [place] [address]- 3762 May, Post-traumatic stress disorder, unspecified F43.10 and Major depressive disorder, recurrent, moderate F33.1 [facility] [address], [place] [address]- 6989 15 May, 2015 [facility] [id number] [place] [address] 73622- 2331 08 May, 2015 [facility] [address], [place] [address]- 0633 May, [facility] [id number] [place] [address] 42924- 5185 Apr, [facility] [id number] [place] [address] 33765- 5019 Apr, Post-traumatic stress disorder, unspecified F43.10 and Sleep apnea, obstructive G47.33 [facility] [address] [place] [address] 11362- 0029 Apr, [facility] [address] [id number] [place] [address] 94458- 9618 Apr, Shoulder pain, left M25.512 [facility] [id number] [place] [address] 09843- 0397 Apr, Post-traumatic stress disorder, unspecified F43.10 and Major depressive disorder, recurrent, moderate F33.1 [facility] [address], [place] [address]- 8103 17 Apr, 2015 [facility] [id number] [place] [address] 23767- 5045 Apr, [facility] [address], [place] [address]- 7666 Apr, [facility] [address] [id number] [place] [address] 11447- 7682 07 Apr, 2015 Left shoulder pain M25.512 [facility] [address], [place] [address]- 7351 Mar, [facility] [address] [id number] [place] [address] 40789- 6832 Mar, [place] [address] [id number] [place] [address] 91137- 4293 Mar, [place] [address] [id number] [place] [address]- 2340 Mar, Sleep apnea, obstructive G47.33 ; Obesity E66.9 ; Chronic pain G89.29 ; Hyperlipidemia E78.5 ; HTN (hypertension) I10 ; Blindness and low vision H54.10 ; Major depressive disorder, recurrent, moderate F33.1 and Anxiety F41.9 [place] [address] [id number] [place] [address] 46105- 3808 Mar, [place] [address] [id number] [place] [address] 37176- 9235 Mar, Post-traumatic stress disorder, unspecified F43.10 and Major depressive disorder, recurrent, moderate F33.1 [place] [address] [id number] [place] [address] 37866- 3997 Mar, [place] [address] [id number] [place] [address] 54617- 5147 Mar, HTN (hypertension) I10 ; Blindness and low vision H54.10 ; Obesity E66.9 ; Hyperlipidemia E78.5 ; Glaucoma H40.9 ; Chronic pain G89.29 and CAD (coronary artery disease) I25.10 [place] [address] [address] [id number] [place] [address] 09752- 0870 Feb, [place] [address] [id number] [place] [address] 04427- 1454 Feb, Post-traumatic stress disorder, unspecified F43.10 ; Obesity E66.9 ; Sleep apnea, obstructive G47.33 and Open-angle glaucoma of both eyes H40.10X0 [place] [address] [id number] [place] [address] 34940- 8302 Feb, Post-traumatic stress disorder, unspecified F43.10 and Major depressive disorder, recurrent, moderate F33.1 [place] [address] [place] [address] [id number] [place] [address] 38282- 7210 Feb, [place] [address] 86411- 5772 Feb, [place] [address] [address] [id number] [place] [address] 36623- 8666 Feb, HTN (hypertension) I10 ; Post-traumatic stress disorder, unspecified F43.10 ; Blindness and low vision H54.10 ; Obesity E66.9 ; Hyperlipidemia E78.5 ; Chronic pain G89.29 ; Glaucoma H40.9 ; Mitral valve prolapse I34.1 and Bilateral headaches R51 [place] [address] 61246- 4104 Feb, [place] [address] [address] [id number] [place] [address] 85409- 6595 Feb, Post-traumatic stress disorder, unspecified F43.10 and Major depressive disorder, recurrent, moderate F33.1 [place] [address] [address] [id number] [place] [address] 75714- 5366 Feb, [place] [address] 11989- 4833 Feb, [place] [address] [address] [id number] [place] [address] 26500- 3897 Jan, [place] [address] [address] [id number] [place] [address] 94294- 0466 Jan, [place] [address] [place] [address] [id number] [place] [address] 51459- 5107 Jan, Obesity E66.9 ; HTN (hypertension) I10 ; Blindness and low vision H54.10 ; Major depressive disorder, recurrent, moderate F33.1 ; Glaucoma H40.9 ; Hyperlipidemia E78.5 ; Sleep apnea, obstructive G47.33 ; Chronic pain G89.29 ; Anxiety F41.9 ; Chronic tension headaches G44.229 and Cough R05 [place] [address] [id number] [place] [address] 13781- 8829 Jan, [facility] [address] [id number] [place] [address] 99122- 2907 Jan, [facility] [address] [address] [id number] [place] [address] 28420- 2129 Jan, Post-traumatic stress disorder, unspecified F43.10 ; Obesity E66.9 ; Sleep apnea, obstructive G47.33 and Open-angle glaucoma of both eyes H40.10X0 [facility] [address] [place] [address] [id number] [place] [address] 01603- 5018 Jan, [place] [address] [place] [id number] [place] [address] 22102- 3864 Jan, Post-traumatic stress disorder, unspecified F43.10 and Major depressive disorder, recurrent, moderate F33.1 [place] [address] [place] [address] [id number] [place] [address] 06482- 7019 Dec, [place] [address] [address] [id number] [place] [address] 18862- 8848 Dec, Sleep apnea, obstructive G47.33 ; Obesity E66.9 ; Hyperlipidemia E78.5 ; Glaucoma H40.9 ; Chronic pain G89.29 ; HTN (hypertension ) I10 ; Blindness and low vision H54.10 ; Anxiety F41.9 and CAD (coronary artery disease) I25.10 [place] [address] [place] [id number] [place] [address] 21318- 5227 Nov, [place] [address] [place] [address] [id number] [place] [address] 38904- 3929 Nov, [facility] [address] [id number] [place] [address] 70759- 8507 Nov, [facility] [id number] [place] [address] 73239- 3182 Nov, [place] [address] [place] [address] [id number] [place] [address] 12789- 2482 Nov, [facility] [id number] [place] [address] 97507- 2888 Nov, Encounter for immunization Z23 ; Sleep apnea, obstructive G47.33 ; Obesity E66.9 ; Hyperlipidemia E78.5 ; Glaucoma H40.9 ; Chronic pain G89.29 ; Anxiety F41.9 ; Chronic tension headaches G44.229 and HTN (hypertension ) I10 [facility] [address] 32170- 2006 Nov, [facility] [address] 35175- 5563 Nov, [facility] [address] 45658- 9197 Nov, Dizziness R42 [facility] [address] 15343- 0202 Nov, [facility] [address] 31837- 1593 Oct, [facility] [address] 04610- 9373 Oct, [facility] [address] 94198- 8820 Oct, [facility] [address] [id number] [place] [address] 52484- 3223 Oct, [facility] [address] 30088- 3928 Oct, Dizziness 780.4 ; Essential hypertension 401.9 ; Obesity 278.00 ; Hyperlipidemia 272.4 ; Chronic pain 338.29 ; Glaucoma 365.9 and Anxiety 300.00 [facility] [address] [id number] [place] [address] 54616- 9854 Oct, Essential hypertension 401.9 ; Hyperlipidemia 272.4 ; Glaucoma 365.9 ; Obesity 278.00 ; Chronic pain 338.29 and Allergy to insects V15.06 [facility] [address] [place] [id number] [address]- 4774 Sep, [facility] [address] [facility] [id number] [place] [address]- 2688 Sep, [facility] [address] [facility] [id number] [place] [address]- 8078 Sep, [facility] [address] [facility] [id number] [address]- 0347 Sep, [facility] [address] [facility] [id number] [address]- 0247 Aug, Essential hypertension 401.9 ; Obesity 278.00 ; Hyperlipidemia 272.4 ; Glaucoma 365.9 ; Lipoma 214.9 ; Mitral valve prolapse 424.0 ; Angina at rest 413.9 ; Lymphedema 457.1 and Chronic pain 338.29 IMMUNIZATIONS No Known Immunizations SOCIAL HISTORY Never Assessed REASON FOR VISIT Blood Pressure--[facility] PLAN OF CARE VITAL SIGNS Height 67 in 2017-09-16 Blood pressure systolic 114 mmHg 2017-09-16 Blood pressure diastolic 82 mmHg 2017-09-16 MEDICATIONS Unknown Medications RESULTS No Results PROCEDURES [...]
[2018-02-04 14:26] VITALS: BP 150/100
--- OUTSIDE RECORDS SUMMARY | 2018-02-04 14:26 | XMS REPORT ---
Author Author ALENA ÁLVAREZ [facility] Address [address] [place] [address] Care Team Providers Care Auditor Name Role Phone ALENA ÁLVAREZ Unavailable PROBLEMS Type Condition ICD9-CM Code NIR71-CA Code Onset Dates Condition Status SNOMED Code Problem Hyperlipidemia E78.5 Active 67623654 Problem Arrhythmia as indication for cardiac pacemaker replacement I49.9 Active 24782611 Problem Sleep apnea, obstructive G47.33 Active 34190958 Problem Primary insomnia F51.01 Active 2466955 Problem Chronic pain G89.29 Active 60349670 Problem Morbid (severe) obesity due to excess calories E66.01 Active 584861975 Problem Body mass index (BMI) of 40.0-44.9 in adult Z68.41 Active 961940185 Problem Other male erectile dysfunction N52.8 Active 501753586 Problem Supraventricular tachycardia I47.1 Active 4053191 Problem Sarcoidosis D86.9 Active 88077402 Problem HTN (hypertension) I10 Active 70459146 Problem Blindness and low vision H54.10 Active 236975750 Problem Myocarditis, unspecified chronicity, 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 Active 57178557 Problem Migraine without aura and without status migrainosus, not intractable G43.009 Active 414828977 Problem 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 Active 856101344 Problem Problems related to release from shelter Z65.2 Active 869423937763203 Problem Chronic pain syndrome G89.4 Active 709277288 Problem Major depressive disorder, recurrent, moderate F33.1 Active 86836662 Problem Open-angle glaucoma of both eyes H40.10X0 Active 45195024 Problem Chronic tension headaches G44.229 Active 060431285 Problem Anxiety F41.9 Active 40817251 Problem Post-traumatic stress disorder, chronic F43.12 Active 176849566 Problem Environmental allergies Z91.09 Active 265554382 Problem Mitral valve prolapse I34.1 Active 962642660 Problem CAD (coronary artery disease) I25.10 Active 36723098 ALLERGIES No Information ENCOUNTERS Encounter Location Date Diagnosis [facility] [id number] [place] [address] 66801- 2780 Nov, [facility] [address] 73777- 5162 Oct, [facility] [address] 59021- 8526 Oct, [place] [facility] [address] 67443- 1738 Oct, Left leg pain M79.605 [place] [facility] [address] 05288- 7751 04 Oct, 2017 Post-traumatic stress disorder, unspecified F43.10 ; Major depressive disorder, recurrent, moderate F33.1 and Problems related to release from shelter Z65.2 [facility] [address] 35751- 9142 Sep, Arrhythmia as indication for cardiac pacemaker replacement I49.9 [facility] [address] 72698- 5829 Sep, [facility] [address] 59720- 9516 Sep, HTN (hypertension) I10 [facility] [id number] [place] [address] 78045- 6474 Sep, [facility] [address] 42223- 2123 Sep, Body mass index (BMI) of 40.0-44.9 in adult Z68.41 ; Chronic pain G89.29 and Supraventricular tachycardia I47.1 [facility] [id number] [place] [address] 52809- 8687 Sep, [facility] [address] 42829- 2365 13 Sep, 2017 Sarcoidosis D86.9 [facility] [address] [address] Sep, Sarcoidosis D86.9 [facility] [id number] [place] [address] 30905- 7846 Sep, [facility] [id number] [place] [address] 94926- 3826 Sep, [facility] [id number] [place] [address] 79208- 4820 Sep, [facility] [id number] [place] [address] 15008- 4893 Sep, [facility] [id number] [place] [address] 04828- 6275 Sep, Left leg pain M79.605 [facility] [id number] [place] [address] 52021- 5901 Sep, HTN (hypertension) I10 [facility] [id number] [place] [address] 40911- 8775 Sep, [facility] [id number] [place] [address] 21750- 2486 Sep, Post-traumatic stress disorder, unspecified F43.10 ; Major depressive disorder, recurrent, moderate F33.1 and Problems related to release from shelter Z65.2 [facility] [id number] [place] [address] 68365- 2736 Sep, [facility] [address] [address] 2548 Aug, [facility] [id number] [place] [address] 71027- 0957 Aug, Sarcoidosis D86.9 [facility] [address] [address] 2546 Aug, Sarcoidosis D86.9 [facility] [id number] [place] [address] 88958- 4123 30 Aug, 2017 HTN (hypertension) I10 [facility] [id number] [place] [address] 52663- 3514 18 Aug, 2017 Post-traumatic stress disorder, unspecified F43.10 ; Major depressive disorder, recurrent, moderate F33.1 and Problems related to release from shelter Z65.2 [facility] [address] 43524- 8586 11 Aug, 2017 [facility] [address] 07593- 9647 Aug, Left leg pain M79.605 [facility] [address] 99760- 5654 26 Jul, 2017 Post-traumatic stress disorder, chronic F43.12 ; Anxiety F41.9 ; Problems related to release from shelter Z65.2 and BMI 40.0-44.9, adult Z68.41 [facility] [address] 36904- 4243 20 Jul, 2017 HTN (hypertension) I10 ; Body mass index (BMI) of 40.0-44.9 in adult Z68.41 ; Acute swimmer''s ear of both sides H60.333 and Chronic pain G89.29 [facility] [id number] [place] [address] 72593- 9266 19 Jul, 2017 Glaucoma H40.9 [facility] [id number] [place] [address] 62743- 4145 14 Jul, 2017 [facility] [id number] [place] [address] 27432- 5276 13 Jul, 2017 Sarcoidosis D86.9 [facility] [address] 10704- 3727 Jul, Left leg pain M79.605 [facility] [address] 78226- 7118 12 Jul, 2017 Sarcoidosis D86.9 [facility] [id number] [address]- 6170 Jul, Post-traumatic stress disorder, unspecified F43.10 ; Major depressive disorder, recurrent, moderate F33.1 and Problems related to release from shelter Z65.2 [facility] [id number] [address] 3504 June, [facility] [id number] [place] [address] 12748 -3895 June, Sore throat J02.9 and BMI 40.0-44.9, adult Z68.41 [facility] [id number] [place] [address] 85703- 2738 June, [facility] [id number] [place] [address] 04145- 0144 June, [facility] [id number] [place] [address] 44768- 3897 June, [facility] [id number] [place] [address] 17454- 6357 June, Left leg pain M79.605 [facility] [id number] [place] [address] 88396- 5270 June, Sarcoidosis D86.9 [facility] [id number] [address]- 3935 June, [facility] [id number] [place] [address] 43362- 5918 June, [facility] [address] [address]- 4580 June, Left leg pain M79.605 [facility] [id number] [address]- 5005 May, [facility] [address] [address]- 7366 May, [facility] [id number] [address]- 6194 May, [facility] [id number] [place] [address] 03866- 9735 May, Left leg pain M79.605 [facility] [address] [place] [address] 17889- 2864 May, Post-traumatic stress disorder, unspecified F43.10 ; Major depressive disorder, recurrent, moderate F33.1 and Problems related to release from shelter Z65.2 [facility] [id number] [place] [address] 32289- 0721 May, Chronic pain G89.29 ; Anxiety F41.9 ; Chest pain, unspecified type R07.9 and BMI 40.0-44.9, adult Z68.41 [facility] [id number] [place] [address] 45662- 9859 30 Apr, 2017 [facility] [id number] [place] [address] 00074- 7667 Apr, Left leg pain M79.605 [facility] [id number] [place] [address] 02896- 8505 27 Apr, 2017 Post-traumatic stress disorder, unspecified F43.10 ; Problems related to release from shelter Z65.2 ; Anxiety F41.9 and BMI 40.0-44.9 , adult Z68.41 [facility] [id number] [place] [address] 10864- 4554 Apr, [facility] [id number] [place] [address] 06364- 5122 Apr, Left leg pain M79.605 [facility] [id number] [place] [address] 27197- 0538 Apr, Post-traumatic stress disorder, unspecified F43.10 ; Major depressive disorder, recurrent, moderate F33.1 and Problems related to release from shelter Z65.2 [place] [address] 29804- 7267 Apr, [facility] [address] 57772- 7412 12 Apr, 2017 Chronic pain G89.29 ; 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 ; Morbid (severe) obesity due to excess calories E66.01 ; Anxiety F41.9 and BMI 40.0-44.9, adult Z68.41 [facility] [address] 76513 -8269 Apr, Sore throat J02.9 and BMI 40.0-44.9, adult Z68.[address] 31935- 1824 02 Apr, 2017 Left leg pain M79.605 [facility] [address] [id number] Mar, Dental examination Z01.20 [place] [address] 72773- 2707 Mar, [facility] [address] [place] [address] 73502 -3729 Mar, Cough R05 ; Viral gastroenteritis A08.4 and BMI 40.0-44.9, adult Z68.41 [place] [facility] [address] 40349- 7213 Mar, Left leg pain M79.605 [place] [address] 85068- 7834 06 Mar, 2017 Post-traumatic stress disorder, unspecified F43.10 ; Major depressive disorder, recurrent, moderate F33.1 and Problems related to release from shelter Z65.2 [facility] [facility] [address] 55918- 9957 Feb, Left leg pain M79.605 [place] [facility] [address] 08787- 8094 Feb, [facility] [id number] [place] [address] 54419- 9610 Feb, BMI 40.0-44.9, adult Z68.41 ; Chronic pain syndrome G89.4 ; Migraine without aura and without status migrainosus, not intractable G43.009 ; Mitral valve prolapse I34.1 and 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 [facility] [facility] [address] 61725- 9448 Feb, Post-traumatic stress disorder, chronic F43.12 ; Anxiety F41.9 ; Problems related to release from shelter Z65.2 and BMI 40.0-44.9, adult Z68.41 [place] [address] 57362- 8457 Feb, Post-traumatic stress disorder, unspecified F43.10 ; Major depressive disorder, recurrent, moderate F33.1 and Problems related to release from shelter Z65.2 [facility] [id number] [place] [address] 39662- 9422 Feb, Left leg pain M79.605 [facility] [facility] [address] 34154- 6409 Jan, Post-traumatic stress disorder, unspecified F43.10 ; Major depressive disorder, recurrent, moderate F33.1 and Problems related to release from shelter Z65.2 [facility] [id number] [place] [address] 99527- 5617 Jan, [facility] [id number] [place] [address] 04444- 4818 Jan, [facility] [id number] [place] [address] 71282- 1550 Jan, Anxiety F41.9 [facility] [id number] [place] [address] 50619- 6601 Jan, Left leg pain M79.605 [place] [address] 99543- 1489 Dec, Left leg pain M79.605 [facility] [address] [place] [address] 45128- 0390 Dec, [facility] [id number] [place] [address] 12894- 7359 Dec, Post-traumatic stress disorder, unspecified F43.10 ; Major depressive disorder, recurrent, moderate F33.1 and Problems related to release from shelter Z65.2 [facility] [id number] [place] [address] 56655- 3849 Nov, Chronic pain G89.29 and Anxiety F41.9 [facility] [id number] [place] [address] 81844- 5820 Nov, Chronic pain G89.29 and Anxiety F41.9 [facility] [id number] [place] [address] 82224- 0125 16 Nov, 2016 Post-traumatic stress disorder, unspecified F43.10 ; Major depressive disorder, recurrent, moderate F33.1 and Problems related to release from shelter Z65.2 [facility] [id number] [place] [address] 69877- 4452 09 Nov, 2016 Other abnormal findings in specimens from other organs, systems and tissues R89.8 ; Other male erectile dysfunction N52.8 ; Body mass index (BMI) of 40.0-44.9 in adult Z68.41 and Morbid (severe) obesity due to excess calories E66.01 [facility] [id number] [place] [address] 72077- 4086 02 Nov, 2016 Post-traumatic stress disorder, unspecified F43.10 ; Major depressive disorder, recurrent, moderate F33.1 and Problems related to release from shelter Z65.2 [facility] [address] [place] [address] [id number] Oct, Dental examination Z01.20 [facility] [address] [place] [address] 10578- 5885 Oct, [facility] [address] [place] [address] 60931- 9199 28 Oct, 2016 Encounter for immunization Z23 [facility] [facility] [address] 03216- 9397 Oct, Chronic pain G89.29 ; Anxiety F41.9 ; Arrhythmia as indication for cardiac pacemaker replacement I49.9 and Glaucoma H40.9 [facility] [id number] [place] [address] 69780- 8694 Oct, Anxiety F41.9 ; Post-traumatic stress disorder, chronic F43.12 and Problems related to release from shelter Z65.2 [facility] [id number] [place] [address] 89875- 3837 07 Oct, 2016 Post-traumatic stress disorder, unspecified F43.10 ; Major depressive disorder, recurrent, moderate F33.1 and Problems related to release from shelter Z65.2 [facility] [id number] [place] [address] 32310- 2642 Sep, Chronic pain G89.29 and Anxiety F41.9 [facility] [id number] [place] [address] 98153- 9939 Sep, Post-traumatic stress disorder, unspecified F43.10 ; Major depressive disorder, recurrent, moderate F33.1 and Problems related to release from shelter Z65.2 [facility] [id number] [place] [address] 85311- 7920 Sep, Post-traumatic stress disorder, unspecified F43.10 ; Major depressive disorder, recurrent, moderate F33.1 and Problems related to release from shelter Z65.2 [facility] [id number] [place] [address] 10254- 6020 Sep, Chronic pain G89.29 [facility] [id number] [place] [address] 68088- 0374 Aug, Dental caries, unspecified K02.9 [facility] [id number] [place] [address] 48668- 5543 Aug, Sleep apnea, obstructive G47.33 ; Obesity E66.9 ; Chronic pain G89.29 ; HTN (hypertension) I10 ; Major depressive disorder, recurrent, moderate F33.1 ; Anxiety F41.9 ; Chronic tension headaches G44.229 ; Mitral valve prolapse I34.1 ; Arrhythmia as indication for cardiac pacemaker replacement I49.9 ; Dental caries, unspecified K02.9 ; Primary insomnia F51.01 and Hyperlipidemia E78.5 [facility] [id number] [place] [address] 69687- 5690 Aug, Post-traumatic stress disorder, unspecified F43.10 ; Major depressive disorder, recurrent, moderate F33.1 and Problems related to release from shelter Z65.2 [facility] [id number] [place] [address] 41895- 1871 Aug, Dental examination Z01.20 [facility] [address] [id number] Aug, Dental examination Z01.20 [facility] [id number] [place] [address] 06839- 9879 Aug, Post-traumatic stress disorder, unspecified F43.10 ; Major depressive disorder, recurrent, moderate F33.1 and Problems related to release from shelter Z65.2 [facility] [id number] [place] [address] 33810- 3177 Aug, Chronic pain G89.29 and Primary insomnia F51.01 [facility] [id number] [place] [address] 03463- 5681 Jul, [facility] [id number] [place] [address] 21614- 7934 Jul, [facility] [id number] [place] [address] 34844- 5493 Jul, Nausea R11.0 [facility] [id number] [place] [address] 54466- 5627 29 Abraham, 2017 Arrhythmia as indication for cardiac pacemaker replacement I49.9 [facility] [address] [place] [address] 10557- 6049 13 Jul, 2016 Post-traumatic stress disorder, unspecified F43.10 ; Major depressive disorder, recurrent, moderate F33.1 and Problems related to release from shelter Z65.2 [facility] [id number] [place] [address] 83447- 3874 09 Jul, 2016 Anxiety F41.9 [place] [address] 78031- 6454 08 Jul, 2016 Chronic pain G89.[address] 67768- 9747 Jul, Sleep apnea, obstructive G47.33 ; Hyperlipidemia E78.5 ; Chronic pain G89.29 ; Blindness and low vision H54.10 ; Major depressive disorder, recurrent, moderate F33.1 ; Anxiety F41.9 ; Mitral valve prolapse I34.1 ; Arrhythmia as indication for cardiac pacemaker replacement I49.9 ; Primary insomnia F51.01 ; Bilateral headaches R51 and Environmental allergies Z91.09 [id number] [place] [address] 88092- 4918 Jul, Post-traumatic stress disorder, unspecified F43.10 ; Major depressive disorder, recurrent, moderate F33.1 and Problems related to release from shelter Z65.2 [place] [id number] [place] [address] 08054- 5037 June, Post-traumatic stress disorder, chronic F43.12 ; Anxiety F41.9 ; Problems related to release from shelter Z65.2 ; Sleep apnea, obstructive G47.33 and Primary insomnia F51.01 [id number] [place] [address] 47009- 5494 June, [place] [id number] [place] [address] 73386- 1248 June, [id number] [place] [address] 21680- 8627 June, [facility] [address] [place] [address] 08655- 6777 June, Chronic pain G89.29 [facility] [id number] [place] [address] 75879- 0381 June, Chronic pain G89.29 [facility] [address] [place] [address] 37424- 7893 June, Lipoma of left lower extremity D17.24 ; Open wound T14.8 and Swelling of left lower extremity M79.89 [facility] [id number] [place] [address] 26799- 8642 June, Post-traumatic stress disorder, unspecified F43.10 ; Major depressive disorder, recurrent, moderate F33.1 and Problems related to release from shelter Z65.2 [facility] [id number] [place] [address] 77732- 8974 May, Lipoma of left lower extremity D17.24 ; Major depressive disorder, recurrent, moderate F33.1 ; Sleep apnea, obstructive G47.33 ; Hyperlipidemia E78.5 ; Obesity E66.9 ; HTN (hypertension) I10 ; Glaucoma H40.9 ; CAD (coronary artery disease) I25.10 ; Chronic tension headaches G44.229 ; Chronic pain G89.29 ; Anxiety F41.9 ; Nausea R11.0 and Primary insomnia F51.01 [facility] [address] [place] [address] 59510- 4234 May, [facility] [address] [place] [address] 36566- 4838 May, Chronic pain G89.29 [facility] [id number] [place] [address] 56935- 5752 May, [facility] [id number] [place] [address] 67309- 6236 Apr, Post-traumatic stress disorder, unspecified F43.10 ; Major depressive disorder, recurrent, moderate F33.1 and Problems related to release from shelter Z65.2 [place] [address] [address]- 9322 Apr, Primary insomnia F51.01 ; Post-traumatic stress disorder, chronic F43.12 and Problems related to release from shelter Z65.2 [facility] [id number] [place] [address] 54898- 9757 17 Apr, 2016 Post-traumatic stress disorder, unspecified F43.10 ; Major depressive disorder, recurrent, moderate F33.1 and Problems related to release from shelter Z65.2 [facility] [id number] [place] [address] 59022- 8870 16 Apr, 2016 [facility] [id number] [place] [address] 24686- 3159 Apr, Sleep apnea, obstructive G47.33 ; Chronic pain G89.29 ; HTN (hypertension) I10 ; Mitral valve prolapse I34.1 ; Shoulder pain, left M25.512 ; Arrhythmia as indication for cardiac pacemaker replacement I49.9 ; Glaucoma H40.9 ; Bilateral headaches R51 ; Environmental allergies Z91.09 ; Primary insomnia F51.01 and Nausea R11.0 [facility] [address] [place] [address] 73517- 7781 Apr, [facility] [facility] [address] [place] [address] 35223- 7210 Apr, [facility] [id number] [place] [address] 41392- 2830 Apr, Post-traumatic stress disorder, unspecified F43.10 ; Major depressive disorder, recurrent, moderate F33.1 and Problems related to release from shelter Z65.2 [facility] [facility] [address] [place] [address] 98591- 4868 Apr, HTN (hypertension) I10 [facility] [id number] [place] [address] 22601- 8144 Apr, HTN (hypertension) I10 [place] [id number] [place] [address] [phone]- 0910 14 Mar, 2016 Chronic pain G89.29 ; Primary insomnia F51.01 and Problems related to release from shelter Z65.2 [place] [address] [place] [id number] [place] [address] [phone]- 1510 07 Mar, 2016 Post-traumatic stress disorder, unspecified F43.10 ; Major depressive disorder, recurrent, moderate F33.1 and Problems related to release from shelter Z65.2 [place] [address] [place] [id number] [place] [address] [phone] Feb, Post-traumatic stress disorder, unspecified F43.10 ; Major depressive disorder, recurrent, moderate F33.1 and Problems related to release from shelter Z65.2 [place] [address] [place] [id number] [place] [address] 12298- 1604 Feb, Chronic tension headaches G44.229 [place] [id number] [place] [address] [phone] 4259 Feb, Sleep apnea, obstructive G47.33 ; Obesity [...] pacemaker replacement I49.9 and Primary insomnia F51.01 [place] [id number] [place] [address] [phone]- 0098 17 Feb, 2016 Post-traumatic stress disorder, unspecified F43.10 and Chronic pain G89.29 [facility] [id number] [place] [address] 82353- 9493 Feb, [facility] [id number] [place] [address] [id number] Feb, Dental caries K02.9 [facility] [id number] [place] [address] 39949- 6363 Feb, [address] 38482- 4863 Feb, Post-traumatic stress disorder, unspecified F43.10 ; Major depressive disorder, recurrent, moderate F33.1 and Problems related to release from shelter Z65.[address] 95321- 6643 Jan, Sleep apnea, obstructive G47.33 and Chronic pain G89.[address] 32773- 8750 Jan, [address] 17048- 2402 Jan, Dental examination Z01.[address] 55700- 4620 Jan, [facility] [address] 30444- 9596 Jan, [address] 75335- 0366 Dec, Post-traumatic stress disorder, unspecified F43.10 ; Major depressive disorder, recurrent, moderate F33.1 and Problems related to release from shelter Z65.[address] 96927- 5229 Dec, Encounter for immunization Z23 ; Problems related to release from shelter Z65.2 ; Sleep apnea, obstructive G47.33 and Post-traumatic stress disorder, chronic F43.[address] 88842- 2785 Dec, Sleep apnea, obstructive G47.33 ; Hyperlipidemia E78.5 ; Chronic pain G89.29 ; Glaucoma H40.9 ; HTN (hypertension) I10 ; Post-traumatic stress disorder, unspecified F43.10 ; Anxiety F41.9 ; Chronic tension headaches G44.229 ; Mitral valve prolapse I34.1 and CAD (coronary artery disease) I25.10 [facility] [id number] [place] [address] 72015- 0026 Dec, Post-traumatic stress disorder, unspecified F43.10 ; Major depressive disorder, recurrent, moderate F33.1 and Problems related to release from shelter Z65.2 [facility] [id number] [place] [address] 47247- 0770 Nov, Chronic pain G89.29 [facility] [address] 69694- 6806 Nov, Post-traumatic stress disorder, unspecified F43.10 ; Major depressive disorder, recurrent, moderate F33.1 and Problems related to release from shelter Z65.2 [facility] [id number] [place] [address] 41439- 9832 Oct, [facility] [address] 10810- 8230 Oct, [facility] [id number] [place] [address] 25377- 1763 16 Oct, 2015 Post-traumatic stress disorder, unspecified F43.10 ; Major depressive disorder, recurrent, moderate F33.1 and Problems related to release from shelter Z65.2 [facility] [id number] [place] [address] 73313- 6272 08 Oct, 2015 [facility] [id number] [place] [address] 84791- 0661 07 Oct, 2015 Environmental allergies Z91.09 ; Cough R05 and Open-angle glaucoma of both eyes H40.10X0 [facility] [address] 54620- 2270 Sep, [facility] [id number] [place] [address] 91551- 5904 Sep, Post-traumatic stress disorder, unspecified F43.10 ; Major depressive disorder, recurrent, moderate F33.1 and Problems related to release from shelter Z65.2 [facility] [id number] [place] [address] 11760- 5271 Sep, Chronic pain G89.29 [facility] [id number] [place] [address] 51346- 3079 Sep, Pain in left shoulder M25.512 ; Pain in right shoulder M25.511 and Other chronic pain G89.29 [facility] [id number] [place] [address] 84711- 7051 Sep, [facility] [id number] [place] [address] 07686- 9531 Sep, [facility] [id number] [place] [address] 22105- 1415 Sep, [facility] [id number] [place] [address] [id number] Aug, Dental examination Z01.20 [facility] [id number] [place] [address] 97800- 3702 Aug, Post-traumatic stress disorder, unspecified F43.10 ; Open- angle glaucoma of both eyes H40.10X0 and Problems related to release from shelter Z65.2 [facility] [id number] [place] [address] 60790- 2295 Aug, [facility] [id number] [place] [address] 60504- 8116 Aug, Sleep apnea, obstructive G47.33 ; Obesity E66.9 ; Hyperlipidemia E78.5 ; Bilateral headaches R51 ; HTN (hypertension) I10 ; Post- traumatic stress disorder, unspecified F43.10 ; Anxiety F41.9 ; Neuropathy G62.9 ; Glaucoma H40.9 and Chronic pain G89.29 [facility] [id number] [place] [address] [id number] Aug, Encounter for dental examination Z01.20 [facility] [id number] [place] [address] 49656- 3532 Aug, Post-traumatic stress disorder, unspecified F43.10 ; Major depressive disorder, recurrent, moderate F33.1 and Problems related to release from shelter Z65.2 [facility] [address] [address] 6187 Aug, [facility] [id number] [address]- 5078 Jul, [facility] [id number] [place] [address] 21676- 6809 Jul, Post-traumatic stress disorder, unspecified F43.10 and Major depressive disorder, recurrent, moderate F33.1 [facility] [id number] [place] [address] 20923- 1719 Jul, [facility] [id number] [place] [address] 77390- 4915 Jul, [facility] [id number] [place] [address] 57296- 9168 Jul, Chronic pain G89.29 [facility] [id number] [place] [address] 82739- 6626 June, Post-traumatic stress disorder, unspecified F43.10 and Major depressive disorder, recurrent, moderate F33.1 [facility] [id number] [address]- 0751 June, [facility] [id number] [place] [address] 21250- 2039 June, Chronic pain G89.29 [facility] [id number] [place] [address] 27544- 2827 June, Post-traumatic stress disorder, unspecified F43.10 and Major depressive disorder, recurrent, moderate F33.1 [facility] [id number] [address]- 8694 May, Post-traumatic stress disorder, unspecified F43.10 and Major depressive disorder, recurrent, moderate F33.1 [facility] [id number] [address]- 6552 15 May, 2015 [facility] [id number] [place] [address] 07365- 4187 08 May, 2015 [facility] [id number] [address]- 2447 May, [facility] [id number] [place] [address] 94982- 7405 Apr, [facility] [id number] [place] [address] 05324- 2325 Apr, Post-traumatic stress disorder, unspecified F43.10 and Sleep apnea, obstructive G47.33 [facility] [id number] [place] [address] 36185- 3203 Apr, [facility] [id number] [place] [address] 18317- 1523 Apr, Shoulder pain, left M25.512 [facility] [id number] [place] [address] 33327- 8168 Apr, Post-traumatic stress disorder, unspecified F43.10 and Major depressive disorder, recurrent, moderate F33.1 [facility] [id number] [address]- 4251 17 Apr, 2015 [facility] [id number] [place] [address] 06609- 1228 Apr, [facility] [id number] [address]- 6252 Apr, [facility] [id number] [place] [address] 63562- 0019 07 Apr, 2015 Left shoulder pain M25.512 [facility] [address] [address]- 6238 Mar, [facility] [id number] [place] [address] 88634- 5948 Mar, [facility] [id number] [place] [address] 57986- 7683 Mar, [facility] [id number] [place] [id number] Mar, Sleep apnea, obstructive G47.33 ; Obesity E66.9 ; Chronic pain G89.29 ; Hyperlipidemia E78.5 ; HTN (hypertension) I10 ; Blindness and low vision H54.10 ; Major depressive disorder, recurrent, moderate F33.1 and Anxiety F41.9 [facility] [id number] [place] [address] 53210- 3434 Mar, [facility] [id number] [place] [address] 23055- 0903 Mar, Post-traumatic stress disorder, unspecified F43.10 and Major depressive disorder, recurrent, moderate F33.1 [facility] [id number] [place] [address] 58242- 0354 Mar, [facility] [id number] [place] [address] 78488- 4227 Mar, HTN (hypertension) I10 ; Blindness and low vision H54.10 ; Obesity E66.9 ; Hyperlipidemia E78.5 ; Glaucoma H40.9 ; Chronic pain G89.29 and CAD (coronary artery disease) I25.10 [facility] [id number] [place] [address] 54834- 0552 Feb, [facility] [id number] [place] [address] 25076- 5257 Feb, Post-traumatic stress disorder, unspecified F43.10 ; Obesity E66.9 ; Sleep apnea, obstructive G47.33 and Open-angle glaucoma of both eyes H40.10X0 [facility] [id number] [place] [address] 61804- 2983 Feb, Post-traumatic stress disorder, unspecified F43.10 and Major depressive disorder, recurrent, moderate F33.1 [facility] [id number] [place] [address] 18358- 2347 Feb, [facility] [address] 25362- 6388 Feb, [facility] [id number] [place] [address] 70793- 9992 Feb, HTN (hypertension) I10 ; Post-traumatic stress disorder, unspecified F43.10 ; Blindness and low vision H54.10 ; Obesity E66.9 ; Hyperlipidemia E78.5 ; Chronic pain G89.29 ; Glaucoma H40.9 ; Mitral valve prolapse I34.1 and Bilateral headaches R51 [facility] [address] 41595- 5036 Feb, [facility] [id number] [place] [address] 70537- 5611 Feb, Post-traumatic stress disorder, unspecified F43.10 and Major depressive disorder, recurrent, moderate F33.1 [facility] [id number] [place] [address] 63103- 9884 Feb, [facility] [address] 34396- 4040 Feb, [facility] [id number] [place] [address] 28861- 6452 Jan, [facility] [id number] [place] [address] 23291- 8987 Jan, [facility] [id number] [place] [address] 95214- 4542 Jan, Obesity E66.9 ; HTN (hypertension) I10 ; Blindness and low vision H54.10 ; Major depressive disorder, recurrent, moderate F33.1 ; Glaucoma H40.9 ; Hyperlipidemia E78.5 ; Sleep apnea, obstructive G47.33 ; Chronic pain G89.29 ; Anxiety F41.9 ; Chronic tension headaches G44.229 and Cough R05 [facility] [id number] [place] [address] 24449- 0105 Jan, [facility] [id number] [place] [address] 42449- 1518 Jan, [facility] [id number] [place] [address] 61551- 1751 Jan, Post-traumatic stress disorder, unspecified F43.10 ; Obesity E66.9 ; Sleep apnea, obstructive G47.33 and Open-angle glaucoma of both eyes H40.10X0 [facility] [id number] [place] [address] 42810- 0640 Jan, [facility] [id number] [place] [address] 18368- 3554 Jan, Post-traumatic stress disorder, unspecified F43.10 and Major depressive disorder, recurrent, moderate F33.1 [facility] [id number] [place] [address] 33384- 2713 Dec, [facility] [id number] [place] [address] 73843- 7037 Dec, Sleep apnea, obstructive G47.33 ; Obesity E66.9 ; Hyperlipidemia E78.5 ; Glaucoma H40.9 ; Chronic pain G89.29 ; HTN (hypertension ) I10 ; Blindness and low vision H54.10 ; Anxiety F41.9 and CAD (coronary artery disease) I25.10 [facility] [id number] [place] [address] 08621- 9973 Nov, [facility] [id number] [place] [address] 32260- 1682 Nov, [facility] [id number] [place] [address] 56322- 7694 Nov, [facility] [id number] [place] [address] 13457- 5571 Nov, [facility] [id number] [place] [address] 13206- 0293 Nov, [facility] [id number] [place] [address] 29453- 4787 Nov, Encounter for immunization Z23 ; Sleep apnea, obstructive G47.33 ; Obesity E66.9 ; Hyperlipidemia E78.5 ; Glaucoma H40.9 ; Chronic pain G89.29 ; Anxiety F41.9 ; Chronic tension headaches G44.229 and HTN (hypertension ) I10 [facility] [address] 24938- 0197 Nov, [facility] [address] 37541- 7773 Nov, [facility] [address] 62438- 4030 Nov, Dizziness R42 [facility] [address] 51969- 0789 Nov, [facility] [address] 62078- 0633 Oct, [facility] [address] 09829- 9034 Oct, [facility] [address] 39597- 7981 Oct, [facility] [id number] [place] [address] 39684- 9830 Oct, [facility] [address] 80820- 2420 Oct, Dizziness 780.4 ; Essential hypertension 401.9 ; Obesity 278.00 ; Hyperlipidemia 272.4 ; Chronic pain 338.29 ; Glaucoma 365.9 and Anxiety 300.00 [facility] [id number] [place] [address] 99939- 9509 Oct, Essential hypertension 401.9 ; Hyperlipidemia 272.4 ; Glaucoma 365.9 ; Obesity 278.00 ; Chronic pain 338.29 and Allergy to insects V15.06 [facility] [id number] [address]- 2886 Sep, [facility] [address] [facility] [id number] [place] [address]- 2902 Sep, [facility] [address] [facility] [id number] [place] [address]- 4190 Sep, [facility] [address] [facility] [id number] [address]- 8190 Sep, [facility] [address] [facility] [id number] [place] [address]- 4256 Aug, Essential hypertension 401.9 ; Obesity 278.00 ; Hyperlipidemia 272.4 ; Glaucoma 365.9 ; Lipoma 214.9 ; Mitral valve prolapse 424.0 ; Angina at rest 413.9 ; Lymphedema 457.1 and Chronic pain 338.29 IMMUNIZATIONS No Known Immunizations SOCIAL HISTORY Never Assessed REASON FOR VISIT Controlled Medication Refill-Due 09/15/17 PLAN OF CARE VITAL SIGNS MEDICATIONS Medication Instructions Dosage Frequency Start Date End Date Duration Status Hydrocodone-Acetaminophen 7.5-325 MG Orally 4 times a day 1 tablet 6h Sep, Active RESULTS No Results PROCEDURES No Known [...]
--- OUTSIDE RECORDS SUMMARY | 2018-02-04 14:27 | XMS REPORT ---
Author Author ALENA ÁLVAREZ [facility] Address [address] [place] [address] Care Team Providers Care Coffee Maker Servicer Name Role Phone ALENA ÁLVAREZ Unavailable PROBLEMS Type Condition ICD9-CM Code ZRX18-MV Code Onset Dates Condition Status SNOMED Code Problem Hyperlipidemia E78.5 Active 13941690 Problem Arrhythmia as indication for cardiac pacemaker replacement I49.9 Active 54519791 Problem Sleep apnea, obstructive G47.33 Active 76398298 Problem Primary insomnia F51.01 Active 2694593 Problem Chronic pain G89.29 Active 35673123 Problem Morbid (severe) obesity due to excess calories E66.01 Active 539738311 Problem Body mass index (BMI) of 40.0-44.9 in adult Z68.41 Active 633267988 Problem Other male erectile dysfunction N52.8 Active 759851551 Problem Supraventricular tachycardia I47.1 Active 8044808 Problem Sarcoidosis D86.9 Active 73332846 Problem HTN (hypertension) I10 Active 23376654 Problem Blindness and low vision H54.10 Active 609027494 Problem Myocarditis, unspecified chronicity, 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 Active 03922160 Problem Migraine without aura and without status migrainosus, not intractable G43.009 Active 165945323 Problem 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 Active 080701099 Problem Problems related to release from assisted Z65.2 Active 425513016005035 Problem Chronic pain syndrome G89.4 Active 169461675 Problem Major depressive disorder, recurrent, moderate F33.1 Active 58858291 Problem Open-angle glaucoma of both eyes H40.10X0 Active 02321335 Problem Chronic tension headaches G44.229 Active 888275841 Problem Anxiety F41.9 Active 40521205 Problem Post-traumatic stress disorder, chronic F43.12 Active 068329139 Problem Environmental allergies Z91.09 Active 122045132 Problem Mitral valve prolapse I34.1 Active 110325856 Problem CAD (coronary artery disease) I25.10 Active 67478932 ALLERGIES No Information ENCOUNTERS Encounter Location Date Diagnosis [facility] [id number] [place] [address] 45856- 5403 Nov, [facility] [address] 83719- 8599 Oct, [facility] [address] 63713- 4619 Oct, [place] [address] 92790- 5072 Oct, Left leg pain M79.605 [place] [address] 74788- 5017 04 Oct, 2017 Post-traumatic stress disorder, unspecified F43.10 ; Major depressive disorder, recurrent, moderate F33.1 and Problems related to release from assisted Z65.2 [place] [address] 99628- 8288 Sep, Arrhythmia as indication for cardiac pacemaker replacement I49.9 [place] [address] 56261- 7719 Sep, [place] [address] 95856- 7698 Sep, HTN (hypertension) I10 [place] [id number] [place] [address] 83432- 2734 Sep, [place] [address] 82321- 0020 Sep, Body mass index (BMI) of 40.0-44.9 in adult Z68.41 ; Chronic pain G89.29 and Supraventricular tachycardia I47.1 [facility] [id number] [place] [address] 76652- 9374 Sep, [facility] [address] 37127- 6680 13 Sep, 2017 Sarcoidosis D86.9 [facility] [address], [place] [address] 9257 Sep, Sarcoidosis D86.9 [facility] [id number] [place] [address] 76216- 6626 Sep, [facility] [id number] [place] [address] 61512- 5596 Sep, [facility] [id number] [place] [address] 64329- 0179 Sep, [facility] [id number] [place] [address] 04789- 1011 Sep, [facility] [id number] [place] [address] 08258- 3789 Sep, Left leg pain M79.605 [facility] [id number] [place] [address] 46844- 3732 Sep, HTN (hypertension) I10 [facility] [address] [place] [address] 25239- 2574 Sep, [facility] [id number] [place] [address] 04850- 5035 Sep, Post-traumatic stress disorder, unspecified F43.10 ; Major depressive disorder, recurrent, moderate F33.1 and Problems related to release from assisted Z65.2 [facility] [address] [place] [address] 58332- 0076 Sep, [facility] [address], [place] [address] 2544 Aug, [facility] [id number] [place] [address] 29946- 5869 Aug, Sarcoidosis D86.9 [facility] [address], [place] [address] 2546 Aug, Sarcoidosis D86.9 [facility] [id number] [place] [address] 73553- 9620 30 Aug, 2017 HTN (hypertension) I10 [place] [id number] [place] [address] 10677- 4082 18 Aug, 2017 Post-traumatic stress disorder, unspecified F43.10 ; Major depressive disorder, recurrent, moderate F33.1 and Problems related to release from assisted Z65.2 [place] [address] 86404- 5895 11 Aug, 2017 [place] [address] 93510- 9664 Aug, Left leg pain M79.605 [place] [address] 41515- 4073 26 Jul, 2017 Post-traumatic stress disorder, chronic F43.12 ; Anxiety F41.9 ; Problems related to release from assisted Z65.2 and BMI 40.0-44.9, adult Z68.41 [place] [address] 65408- 5483 20 Jul, 2017 HTN (hypertension) I10 ; Body mass index (BMI) of 40.0-44.9 in adult Z68.41 ; Acute swimmer''s ear of both sides H60.333 and Chronic pain G89.29 [place] [id number] [place] [address] 80639- 6417 19 Jul, 2017 Glaucoma H40.9 [place] [id number] [place] [address] 54681- 9286 14 Jul, 2017 [place] [id number] [place] [address] 60429- 8344 13 Jul, 2017 Sarcoidosis D86.9 [place] [address] 21363- 4147 Jul, Left leg pain M79.605 [place] [address] 17129- 4364 12 Jul, 2017 Sarcoidosis D86.9 [place] [address] [address]- 8969 Jul, Post-traumatic stress disorder, unspecified F43.10 ; Major depressive disorder, recurrent, moderate F33.1 and Problems related to release from assisted Z65.2 [facility] [address] [address]- 1710 June, [facility] [id number] [place] [address] 29751 -9604 June, Sore throat J02.9 and BMI 40.0-44.9, adult Z68.41 [facility] [id number] [place] [address] 52284- 9741 June, [facility] [id number] [place] [address] 78919- 3180 June, [facility] [id number] [place] [address] 62517- 1360 June, [facility] [id number] [place] [address] 47549- 6907 June, Left leg pain M79.605 [facility] [id number] [place] [address] 28191- 8968 June, Sarcoidosis D86.9 [facility] [address] [address]- 9909 June, [facility] [id number] [place] [address] 56874- 6268 June, [facility] [address], [place] [address]- 2665 June, Left leg pain M79.605 [facility] [address] [address]- 1749 May, [facility] [address], [place] [address]- 3171 May, [facility] [address] [address]- 6795 May, [facility] [id number] [place] [address] 28163- 6987 May, Left leg pain M79.605 [facility] [address] [place] [address] 05367- 4759 May, Post-traumatic stress disorder, unspecified F43.10 ; Major depressive disorder, recurrent, moderate F33.1 and Problems related to release from assisted Z65.2 [place] [id number] [place] [address] 48781- 2732 May, Chronic pain G89.29 ; Anxiety F41.9 ; Chest pain, unspecified type R07.9 and BMI 40.0-44.9, adult Z68.41 [place] [id number] [place] [address] 42975- 0899 30 Apr, 2017 [place] [id number] [place] [address] 97603- 3147 Apr, Left leg pain M79.605 [place] [id number] [place] [address] 37957- 4455 27 Apr, 2017 Post-traumatic stress disorder, unspecified F43.10 ; Problems related to release from assisted Z65.2 ; Anxiety F41.9 and BMI 40.0-44.9 , adult Z68.41 [place] [id number] [place] [address] 71868- 6344 Apr, [place] [id number] [place] [address] 42683- 1443 Apr, Left leg pain M79.605 [place] [id number] [place] [address] 70465- 3556 Apr, Post-traumatic stress disorder, unspecified F43.10 ; Major depressive disorder, recurrent, moderate F33.1 and Problems related to release from assisted Z65.2 [place] [address] 51564- 8581 Apr, [facility] [address] 14717- 4339 12 Apr, 2017 Chronic pain G89.29 ; 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 ; Morbid (severe) obesity due to excess calories E66.01 ; Anxiety F41.9 and BMI 40.0-44.9, adult Z68.41 [facility] [address] 93034 -6681 Apr, Sore throat J02.9 and BMI 40.0-44.9, adult Z68.[address] 17723- 6016 02 Apr, 2017 Left leg pain M79.605 [facility] [address] [id number] Mar, Dental examination Z01.20 [place] [address] 25903- 3037 Mar, [facility] [address] [place] [address] 22887 -6887 Mar, Cough R05 ; Viral gastroenteritis A08.4 and BMI 40.0-44.9, adult Z68.41 [place] [address] 44829- 1788 Mar, Left leg pain M79.605 [place] [address] 36920- 3328 06 Mar, 2017 Post-traumatic stress disorder, unspecified F43.10 ; Major depressive disorder, recurrent, moderate F33.1 and Problems related to release from assisted Z65.2 [place] [address] 46550- 3046 Feb, Left leg pain M79.605 [place] [address] 84611- 1942 Feb, [facility] [id number] [place] [address] 37338- 4229 Feb, BMI 40.0-44.9, adult Z68.41 ; Chronic pain syndrome G89.4 ; Migraine without aura and without status migrainosus, not intractable G43.009 ; Mitral valve prolapse I34.1 and 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 [place] [address] 15178- 6277 Feb, Post-traumatic stress disorder, chronic F43.12 ; Anxiety F41.9 ; Problems related to release from assisted Z65.2 and BMI 40.0-44.9, adult Z68.41 [place] [address] 00616- 3392 Feb, Post-traumatic stress disorder, unspecified F43.10 ; Major depressive disorder, recurrent, moderate F33.1 and Problems related to release from assisted Z65.2 [place] [id number] [place] [address] 42655- 3089 Feb, Left leg pain M79.605 [place] [address] 62779- 8871 Jan, Post-traumatic stress disorder, unspecified F43.10 ; Major depressive disorder, recurrent, moderate F33.1 and Problems related to release from assisted Z65.2 [place] [id number] [place] [address] 20902- 0360 Jan, [place] [id number] [place] [address] 06646- 6431 Jan, [place] [id number] [place] [address] 61015- 2946 Jan, Anxiety F41.9 [facility] [id number] [place] [address] 79169- 9272 Jan, Left leg pain M79.605 [place] [address] 40213- 3606 Dec, Left leg pain M79.605 [facility] [address] [place] [address] 58115- 6005 Dec, [facility] [id number] [place] [address] 07464- 0936 Dec, Post-traumatic stress disorder, unspecified F43.10 ; Major depressive disorder, recurrent, moderate F33.1 and Problems related to release from assisted Z65.2 [facility] [id number] [place] [address] 00584- 9835 Nov, Chronic pain G89.29 and Anxiety F41.9 [place] [id number] [place] [address] 65289- 2238 Nov, Chronic pain G89.29 and Anxiety F41.9 [facility] [id number] [place] [address] 53289- 1795 16 Nov, 2016 Post-traumatic stress disorder, unspecified F43.10 ; Major depressive disorder, recurrent, moderate F33.1 and Problems related to release from assisted Z65.2 [facility] [id number] [place] [address] 54953- 7452 09 Nov, 2016 Other abnormal findings in specimens from other organs, systems and tissues R89.8 ; Other male erectile dysfunction N52.8 ; Body mass index (BMI) of 40.0-44.9 in adult Z68.41 and Morbid (severe) obesity due to excess calories E66.01 [facility] [id number] [place] [address] 15122- 2846 02 Nov, 2016 Post-traumatic stress disorder, unspecified F43.10 ; Major depressive disorder, recurrent, moderate F33.1 and Problems related to release from assisted Z65.2 [facility] [address] [place] [address] [id number] Oct, Dental examination Z01.20 [facility] [address] [place] [address] 77033- 4986 Oct, [place] [address] [place] [address] 95940- 8517 28 Oct, 2016 Encounter for immunization Z23 [place] [address] 28868- 8090 Oct, Chronic pain G89.29 ; Anxiety F41.9 ; Arrhythmia as indication for cardiac pacemaker replacement I49.9 and Glaucoma H40.9 [place] [id number] [place] [address] 34002- 7444 Oct, Anxiety F41.9 ; Post-traumatic stress disorder, chronic F43.12 and Problems related to release from assisted Z65.2 [place] [id number] [place] [address] 36359- 4801 07 Oct, 2016 Post-traumatic stress disorder, unspecified F43.10 ; Major depressive disorder, recurrent, moderate F33.1 and Problems related to release from assisted Z65.2 [place] [id number] [place] [address] 64097- 4219 Sep, Chronic pain G89.29 and Anxiety F41.9 [place] [id number] [place] [address] 28817- 7234 Sep, Post-traumatic stress disorder, unspecified F43.10 ; Major depressive disorder, recurrent, moderate F33.1 and Problems related to release from assisted Z65.2 [place] [id number] [place] [address] 37993- 8285 Sep, Post-traumatic stress disorder, unspecified F43.10 ; Major depressive disorder, recurrent, moderate F33.1 and Problems related to release from assisted Z65.2 [place] [address] [place] [address] 20989- 9628 Sep, Chronic pain G89.29 [place] [id number] [place] [address] 28076- 5084 Aug, Dental caries, unspecified K02.9 [place] [id number] [place] [address] 32791- 2360 Aug, Sleep apnea, obstructive G47.33 ; Obesity E66.9 ; Chronic pain G89.29 ; HTN (hypertension) I10 ; Major depressive disorder, recurrent, moderate F33.1 ; Anxiety F41.9 ; Chronic tension headaches G44.229 ; Mitral valve prolapse I34.1 ; Arrhythmia as indication for cardiac pacemaker replacement I49.9 ; Dental caries, unspecified K02.9 ; Primary insomnia F51.01 and Hyperlipidemia E78.5 [place] [id number] [place] [address] 42205- 8094 Aug, Post-traumatic stress disorder, unspecified F43.10 ; Major depressive disorder, recurrent, moderate F33.1 and Problems related to release from assisted Z65.2 [place] [address] [place] [address] 97103- 2678 Aug, Dental examination Z01.20 [facility] [address] [id number] Aug, Dental examination Z01.20 [facility] [id number] [place] [address] 65876- 8007 Aug, Post-traumatic stress disorder, unspecified F43.10 ; Major depressive disorder, recurrent, moderate F33.1 and Problems related to release from assisted Z65.2 [place] [address] [place] [address] 60611- 0446 Aug, Chronic pain G89.29 and Primary insomnia F51.01 [facility] [id number] [place] [address] 21236- 5034 Jul, [facility] [id number] [place] [address] 73755- 1186 Jul, [place] [id number] [place] [address] 01967- 7227 Jul, Nausea R11.0 [facility] [address] [place] [address] 92965- 8903 29 Abraham, 2017 Arrhythmia as indication for cardiac pacemaker replacement I49.9 [place] [address] [place] [address] 10681- 6758 13 Jul, 2016 Post-traumatic stress disorder, unspecified F43.10 ; Major depressive disorder, recurrent, moderate F33.1 and Problems related to release from assisted Z65.2 [place] [address] [place] [address] 25236- 6868 09 Jul, 2016 Anxiety F41.9 [place] [address] 81009- 7906 08 Jul, 2016 Chronic pain G89.[address] 76953- 8714 Jul, Sleep apnea, obstructive G47.33 ; Hyperlipidemia E78.5 ; Chronic pain G89.29 ; Blindness and low vision H54.10 ; Major depressive disorder, recurrent, moderate F33.1 ; Anxiety F41.9 ; Mitral valve prolapse I34.1 ; Arrhythmia as indication for cardiac pacemaker replacement I49.9 ; Primary insomnia F51.01 ; Bilateral headaches R51 and Environmental allergies Z91.09 [place] [id number] [place] [address] 68086- 1512 Jul, Post-traumatic stress disorder, unspecified F43.10 ; Major depressive disorder, recurrent, moderate F33.1 and Problems related to release from assisted Z65.2 [place] [id number] [place] [address] 23693- 0016 June, Post-traumatic stress disorder, chronic F43.12 ; Anxiety F41.9 ; Problems related to release from assisted Z65.2 ; Sleep apnea, obstructive G47.33 and Primary insomnia F51.01 [place] [id number] [place] [address] 82874- 5029 June, [place] [id number] [place] [address] 24125- 2690 June, [place] [id number] [place] [address] 09340- 8857 June, [place] [address] [place] [address] 63532- 3721 June, Chronic pain G89.29 [place] [id number] [place] [address] 89803- 0793 June, Chronic pain G89.29 [place] [address] [place] [address] 18935- 7168 June, Lipoma of left lower extremity D17.24 ; Open wound T14.8 and Swelling of left lower extremity M79.89 [place] [address] [place] [address] 11181- 6334 June, Post-traumatic stress disorder, unspecified F43.10 ; Major depressive disorder, recurrent, moderate F33.1 and Problems related to release from assisted Z65.2 [place] [address] [place] [address] 82384- 3148 May, Lipoma of left lower extremity D17.24 ; Major depressive disorder, recurrent, moderate F33.1 ; Sleep apnea, obstructive G47.33 ; Hyperlipidemia E78.5 ; Obesity E66.9 ; HTN (hypertension) I10 ; Glaucoma H40.9 ; CAD (coronary artery disease) I25.10 ; Chronic tension headaches G44.229 ; Chronic pain G89.29 ; Anxiety F41.9 ; Nausea R11.0 and Primary insomnia F51.01 [place] [address] [place] [address] 40972- 4551 May, [place] [address] [place] [address] 00053- 8614 May, Chronic pain G89.29 [place] [id number] [place] [address] 59923- 0383 May, [place] [id number] [place] [address] 29010- 1977 Apr, Post-traumatic stress disorder, unspecified F43.10 ; Major depressive disorder, recurrent, moderate F33.1 and Problems related to release from assisted Z65.2 [place] [address], [place] [address]- 7431 Apr, Primary insomnia F51.01 ; Post-traumatic stress disorder, chronic F43.12 and Problems related to release from assisted Z65.2 [place] [address] [place] [address] 95014- 8647 17 Apr, 2016 Post-traumatic stress disorder, unspecified F43.10 ; Major depressive disorder, recurrent, moderate F33.1 and Problems related to release from assisted Z65.2 [place] [address] [place] [address] 57631- 8368 16 Apr, 2016 [place] [id number] [place] [address] 35381- 1839 Apr, Sleep apnea, obstructive G47.33 ; Chronic pain G89.29 ; HTN (hypertension) I10 ; Mitral valve prolapse I34.1 ; Shoulder pain, left M25.512 ; Arrhythmia as indication for cardiac pacemaker replacement I49.9 ; Glaucoma H40.9 ; Bilateral headaches R51 ; Environmental allergies Z91.09 ; Primary insomnia F51.01 and Nausea R11.0 [place] [address] [place] [address] 45447- 7663 Apr, [place] [address] [place] [address] 40911- 9788 Apr, [place] [id number] [place] [address] 75706- 5739 Apr, Post-traumatic stress disorder, unspecified F43.10 ; Major depressive disorder, recurrent, moderate F33.1 and Problems related to release from assisted Z65.2 [place] [address] [place] [address] 32814- 1840 Apr, HTN (hypertension) I10 [place] [id number] [place] [address] 72179- 3419 Apr, HTN (hypertension) I10 [place] [address] [place] [address] 08993- 6425 14 Mar, 2016 Chronic pain G89.29 ; Primary insomnia F51.01 and Problems related to release from assisted Z65.2 [place] [address] [place] [address] 79265- 9618 07 Mar, 2016 Post-traumatic stress disorder, unspecified F43.10 ; Major depressive disorder, recurrent, moderate F33.1 and Problems related to release from assisted Z65.2 [place] [id number] [place] [address] 63794- 9772 Feb, Post-traumatic stress disorder, unspecified F43.10 ; Major depressive disorder, recurrent, moderate F33.1 and Problems related to release from assisted Z65.2 [place] [id number] [place] [address] 03300- 2685 Feb, Chronic tension headaches G44.229 [place] [id number] [place] [address] 29985- 7737 Feb, Sleep apnea, obstructive G47.33 ; Obesity E66.9 ; Hyperlipidemia E78.5 ; Glaucoma H40.9 ; Chronic pain G89.29 ; HTN (hypertension ) I10 ; Blindness and low vision H54.10 ; Open-angle glaucoma of both eyes H40.10X0 ; Chronic tension headaches G44.229 ; Cough R05 ; CAD (coronary artery disease) I25.10 ; Problems related to release from assisted Z65.2 ; Arrhythmia as indication for cardiac pacemaker replacement I49.9 and Primary insomnia F51.01 [place] [id number] [place] [address] 07517- 8860 17 Feb, 2016 Post-traumatic stress disorder, unspecified F43.10 and Chronic pain G89.29 [place] [address] [place] [id number] [place] [address] 53987- 3626 Feb, [facility] [id number] [place] [address] [id number] Feb, Dental caries K02.9 [place] [address] [place] [id number] [place] [address] 28558- 5065 Feb, [address] 97207- 4667 Feb, Post-traumatic stress disorder, unspecified F43.10 ; Major depressive disorder, recurrent, moderate F33.1 and Problems related to release from assisted Z65.[address] 66744- 5477 Jan, Sleep apnea, obstructive G47.33 and Chronic pain G89.[address] 90789- 5011 Jan, [address] 63321- 2830 Jan, Dental examination Z01.[address] 71279- 1408 Jan, [place] [address] 05932- 3976 Jan, [address] 17162- 5236 Dec, Post-traumatic stress disorder, unspecified F43.10 ; Major depressive disorder, recurrent, moderate F33.1 and Problems related to release from assisted Z65.[address] 47453- 1180 Dec, Encounter for immunization Z23 ; Problems related to release from assisted Z65.2 ; Sleep apnea, obstructive G47.33 and Post-traumatic stress disorder, chronic F43.[address] 30891- 2771 Dec, Sleep apnea, obstructive G47.33 ; Hyperlipidemia E78.5 ; Chronic pain G89.29 ; Glaucoma H40.9 ; HTN (hypertension) I10 ; Post-traumatic stress disorder, unspecified F43.10 ; Anxiety F41.9 ; Chronic tension headaches G44.229 ; Mitral valve prolapse I34.1 and CAD (coronary artery disease) I25.10 [place] [address] [place] [id number] [place] [address] 03741- 5179 Dec, Post-traumatic stress disorder, unspecified F43.10 ; Major depressive disorder, recurrent, moderate F33.1 and Problems related to release from assisted Z65.2 [place] [address] [place] [id number] [place] [address] 50767- 8509 Nov, Chronic pain G89.29 [place] [address] 21508- 7308 Nov, Post-traumatic stress disorder, unspecified F43.10 ; Major depressive disorder, recurrent, moderate F33.1 and Problems related to release from assisted Z65.2 [place] [address] [place] [id number] [place] [address] 86136- 4666 Oct, [place] [address] 33539- 4352 Oct, [place] [address] [place] [id number] [place] [address] 08234- 6744 16 Oct, 2015 Post-traumatic stress disorder, unspecified F43.10 ; Major depressive disorder, recurrent, moderate F33.1 and Problems related to release from assisted Z65.2 [place] [address] [place] [id number] [place] [address] 24729- 0161 08 Oct, 2015 [place] [address] [place] [id number] [place] [address] 19957- 8765 07 Oct, 2015 Environmental allergies Z91.09 ; Cough R05 and Open-angle glaucoma of both eyes H40.10X0 [place] [address] 98432- 8734 Sep, [place] [address] [place] [id number] [place] [address] 01386- 3003 Sep, Post-traumatic stress disorder, unspecified F43.10 ; Major depressive disorder, recurrent, moderate F33.1 and Problems related to release from assisted Z65.2 [place] [id number] [place] [address] 01060- 3987 Sep, Chronic pain G89.29 [place] [address] [place] [id number] [place] [address] 06340- 6979 Sep, Pain in left shoulder M25.512 ; Pain in right shoulder M25.511 and Other chronic pain G89.29 [place] [address] [place] [id number] [place] [address] 27164- 2670 Sep, [place] [address] [address] [id number] [place] [address] 75984- 4450 Sep, [place] [address] [place] [id number] [place] [address] 44553- 6422 Sep, [facility] [id number] [place] [address] [id number] Aug, Dental examination Z01.20 [place] [address] [place] [id number] [place] [address] 76302- 8116 Aug, Post-traumatic stress disorder, unspecified F43.10 ; Open- angle glaucoma of both eyes H40.10X0 and Problems related to release from assisted Z65.2 [place] [id number] [place] [address] 36133- 8644 Aug, [place] [address] [place] [id number] [place] [address] 39277- 9173 Aug, Sleep apnea, obstructive G47.33 ; Obesity E66.9 ; Hyperlipidemia E78.5 ; Bilateral headaches R51 ; HTN (hypertension) I10 ; Post- traumatic stress disorder, unspecified F43.10 ; Anxiety F41.9 ; Neuropathy G62.9 ; Glaucoma H40.9 and Chronic pain G89.29 [facility] [address] [id number] [place] [address] [id number] Aug, Encounter for dental examination Z01.20 [place] [address] [place] [id number] [place] [address] 37373- 8036 Aug, Post-traumatic stress disorder, unspecified F43.10 ; Major depressive disorder, recurrent, moderate F33.1 and Problems related to release from assisted Z65.2 [facility] [address] [address]- 9403 Aug, [facility] [address], [place] [address]- 9965 Jul, [facility] [address] [place] [id number] [place] [address] 78742- 5584 Jul, Post-traumatic stress disorder, unspecified F43.10 and Major depressive disorder, recurrent, moderate F33.1 [facility] [address] [place] [id number] [place] [address] 72086- 4986 Jul, [facility] [address] [id number] [place] [address] 29555- 8020 Jul, [facility] [address] [address] [id number] [place] [address] 02568- 0995 Jul, Chronic pain G89.29 [facility] [address] [place] [address] [id number] [place] [address] 10437- 7168 June, Post-traumatic stress disorder, unspecified F43.10 and Major depressive disorder, recurrent, moderate F33.1 [facility] [address], [place] [address]- 0727 June, [facility] [id number] [place] [address] 24667- 9642 June, Chronic pain G89.29 [facility] [id number] [place] [address] 24993- 1998 June, Post-traumatic stress disorder, unspecified F43.10 and Major depressive disorder, recurrent, moderate F33.1 [facility] [address], [place] [address]- 5801 May, Post-traumatic stress disorder, unspecified F43.10 and Major depressive disorder, recurrent, moderate F33.1 [facility] [address], [place] [address]- 4473 15 May, 2015 [facility] [address] [place] [address] [id number] [place] [address] 04880- 7607 08 May, 2015 [facility] [address], [place] [address]- 9705 May, [facility] [address] [place] [id number] [place] [address] 64703- 1745 Apr, [facility] [address] [address] [id number] [place] [address] 86279- 8343 Apr, Post-traumatic stress disorder, unspecified F43.10 and Sleep apnea, obstructive G47.33 [facility] [id number] [place] [address] 43501- 1731 Apr, [facility] [address] [address] [id number] [place] [address] 25642- 6449 Apr, Shoulder pain, left M25.512 [facility] [address] [address] [id number] [place] [address] 62280- 8361 Apr, Post-traumatic stress disorder, unspecified F43.10 and Major depressive disorder, recurrent, moderate F33.1 [facility] [address], [place] [address]- 0553 17 Apr, 2015 [facility] [id number] [place] [address] 12554- 0483 Apr, [facility] [address], [place] [address]- 0238 Apr, [facility] [address] [place] [id number] [place] [address] 38438- 8060 07 Apr, 2015 Left shoulder pain M25.512 [facility] [address], [place] [address]- 2114 Mar, [facility] [address] [id number] [place] [address] 40168- 0700 Mar, [place] [address] [place] [id number] [place] [address] 58864- 8069 Mar, [place] [address] [place] [id number] [place] [address]- 2473 Mar, Sleep apnea, obstructive G47.33 ; Obesity E66.9 ; Chronic pain G89.29 ; Hyperlipidemia E78.5 ; HTN (hypertension) I10 ; Blindness and low vision H54.10 ; Major depressive disorder, recurrent, moderate F33.1 and Anxiety F41.9 [place] [address] [place] [id number] [place] [address] 66448- 5795 Mar, [place] [address] [place] [id number] [place] [address] 41628- 9399 Mar, Post-traumatic stress disorder, unspecified F43.10 and Major depressive disorder, recurrent, moderate F33.1 [place] [address] [place] [id number] [place] [address] 96893- 2681 Mar, [place] [address] [place] [id number] [place] [address] 98034- 4497 Mar, HTN (hypertension) I10 ; Blindness and low vision H54.10 ; Obesity E66.9 ; Hyperlipidemia E78.5 ; Glaucoma H40.9 ; Chronic pain G89.29 and CAD (coronary artery disease) I25.10 [place] [address] [place] [id number] [place] [address] 45901- 6352 Feb, [place] [address] [place] [id number] [place] [address] 88600- 7998 Feb, Post-traumatic stress disorder, unspecified F43.10 ; Obesity E66.9 ; Sleep apnea, obstructive G47.33 and Open-angle glaucoma of both eyes H40.10X0 [place] [address] [place] [id number] [place] [address] 53062- 7299 Feb, Post-traumatic stress disorder, unspecified F43.10 and Major depressive disorder, recurrent, moderate F33.1 [place] [address] [place] [id number] [place] [address] 25707- 7252 Feb, [place] [address] 37378- 0350 Feb, [place] [address] [place] [id number] [place] [address] 35159- 1132 Feb, HTN (hypertension) I10 ; Post-traumatic stress disorder, unspecified F43.10 ; Blindness and low vision H54.10 ; Obesity E66.9 ; Hyperlipidemia E78.5 ; Chronic pain G89.29 ; Glaucoma H40.9 ; Mitral valve prolapse I34.1 and Bilateral headaches R51 [place] [address] 62756- 4838 Feb, [place] [address] [place] [id number] [place] [address] 79154- 0962 Feb, Post-traumatic stress disorder, unspecified F43.10 and Major depressive disorder, recurrent, moderate F33.1 [place] [address] [place] [id number] [place] [address] 71022- 5083 Feb, [place] [address] 44887- 5230 Feb, [place] [address] [place] [id number] [place] [address] 02414- 0505 Jan, [place] [address] [place] [id number] [place] [address] 21922- 8790 Jan, [place] [address] [place] [id number] [place] [address] 36867- 4435 Jan, Obesity E66.9 ; HTN (hypertension) I10 ; Blindness and low vision H54.10 ; Major depressive disorder, recurrent, moderate F33.1 ; Glaucoma H40.9 ; Hyperlipidemia E78.5 ; Sleep apnea, obstructive G47.33 ; Chronic pain G89.29 ; Anxiety F41.9 ; Chronic tension headaches G44.229 and Cough R05 [place] [address] [place] [id number] [place] [address] 44910- 5301 Jan, [facility] [address] [place] [id number] [place] [address] 44016- 9984 Jan, [facility] [address] [place] [id number] [place] [address] 11544- 1622 Jan, Post-traumatic stress disorder, unspecified F43.10 ; Obesity E66.9 ; Sleep apnea, obstructive G47.33 and Open-angle glaucoma of both eyes H40.10X0 [facility] [address] [place] [id number] [place] [address] 71775- 2420 Jan, [place] [address] [place] [id number] [place] [address] 08846- 5093 Jan, Post-traumatic stress disorder, unspecified F43.10 and Major depressive disorder, recurrent, moderate F33.1 [place] [address] [place] [id number] [place] [address] 26701- 5493 Dec, [place] [address] [place] [id number] [place] [address] 50292- 6402 Dec, Sleep apnea, obstructive G47.33 ; Obesity E66.9 ; Hyperlipidemia E78.5 ; Glaucoma H40.9 ; Chronic pain G89.29 ; HTN (hypertension ) I10 ; Blindness and low vision H54.10 ; Anxiety F41.9 and CAD (coronary artery disease) I25.10 [place] [address] [place] [id number] [place] [address] 09280- 9660 Nov, [place] [address] [place] [id number] [place] [address] 21540- 6159 Nov, [facility] [address] [address] [id number] [place] [address] 59970- 8469 Nov, [facility] [id number] [place] [address] 32714- 1385 Nov, [place] [address] [place] [id number] [place] [address] 37827- 8955 Nov, [facility] [address] [place] [id number] [place] [address] 55356- 0791 Nov, Encounter for immunization Z23 ; Sleep apnea, obstructive G47.33 ; Obesity E66.9 ; Hyperlipidemia E78.5 ; Glaucoma H40.9 ; Chronic pain G89.29 ; Anxiety F41.9 ; Chronic tension headaches G44.229 and HTN (hypertension ) I10 [facility] [address] 17539- 8898 Nov, [facility] [address] 74696- 0285 Nov, [facility] [address] 24774- 6763 Nov, Dizziness R42 [facility] [address] 56237- 0762 Nov, [facility] [address] 37085- 2644 Oct, [facility] [address] 33310- 3073 Oct, [facility] [address] 97815- 7177 Oct, [facility] [address] [id number] [place] [address] 15626- 8805 Oct, [facility] [address] 07543- 0389 Oct, Dizziness 780.4 ; Essential hypertension 401.9 ; Obesity 278.00 ; Hyperlipidemia 272.4 ; Chronic pain 338.29 ; Glaucoma 365.9 and Anxiety 300.00 [facility] [address] [place] [id number] [place] [address] 46194- 7979 Oct, Essential hypertension 401.9 ; Hyperlipidemia 272.4 ; Glaucoma 365.9 ; Obesity 278.00 ; Chronic pain 338.29 and Allergy to insects V15.06 [facility] [address] [place] [id number] [address]- 5990 Sep, [facility] [address] [facility] [id number] [place] [address]- 8725 Sep, [facility] [address] [facility] [id number] [place] [address]- 0636 Sep, [facility] [address] [facility] [id number] [address]- 9530 Sep, [facility] [address] [facility] [id number] [address]- 9747 Aug, Essential hypertension 401.9 ; Obesity 278.00 [...] Result Body Site LAB NOT BILLED BY [facility] Sep 14, 2017 INSTRUCTIONS MEDICATIONS ADMINISTERED No Known Medications [...]
--- OUTSIDE RECORDS SUMMARY | 2018-02-04 14:28 | XMS REPORT ---
Author Author ALENA ÁLVAREZ [facility] Address [address] [place] [address] Care Team Providers Care Regional Property Manager Name Role Phone ALENA ÁLVAREZ Unavailable PROBLEMS Type Condition ICD9-CM Code NXJ74-CO Code Onset Dates Condition Status SNOMED Code Problem Hyperlipidemia E78.5 Active 84617977 Problem Arrhythmia as indication for cardiac pacemaker replacement I49.9 Active 53661942 Problem Sleep apnea, obstructive G47.33 Active 95692454 Problem Primary insomnia F51.01 Active 3684458 Problem Chronic pain G89.29 Active 33714038 Problem Morbid (severe) obesity due to excess calories E66.01 Active 525402506 Problem Body mass index (BMI) of 40.0-44.9 in adult Z68.41 Active 769436741 Problem Other male erectile dysfunction N52.8 Active 527388928 Problem Supraventricular tachycardia I47.1 Active 1759395 Problem Sarcoidosis D86.9 Active 09473478 Problem HTN (hypertension) I10 Active 81217185 Problem Blindness and low vision H54.10 Active 618387568 Problem Myocarditis, unspecified chronicity, 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 Active 73206008 Problem Migraine without aura and without status migrainosus, not intractable G43.009 Active 969672831 Problem 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 Active 179730010 Problem Problems related to release from usp Z65.2 Active 765302964469417 Problem Chronic pain syndrome G89.4 Active 067264679 Problem Major depressive disorder, recurrent, moderate F33.1 Active 00264616 Problem Open-angle glaucoma of both eyes H40.10X0 Active 39453740 Problem Chronic tension headaches G44.229 Active 410191337 Problem Anxiety F41.9 Active 61120245 Problem Post-traumatic stress disorder, chronic F43.12 Active 584367180 Problem Environmental allergies Z91.09 Active 779128198 Problem Mitral valve prolapse I34.1 Active 145285678 Problem CAD (coronary artery disease) I25.10 Active 27941355 ALLERGIES No Information ENCOUNTERS Encounter Location Date Diagnosis [facility] [id number] [place] [address] 88412- 8236 Nov, [facility] [address] 10148- 1937 Oct, [facility] [address] 92875- 7414 Oct, [place] [address] 39499- 9347 Oct, Left leg pain M79.605 [place] [address] 73937- 4499 04 Oct, 2017 Post-traumatic stress disorder, unspecified F43.10 ; Major depressive disorder, recurrent, moderate F33.1 and Problems related to release from usp Z65.2 [facility] [address] 45614- 5212 Sep, Arrhythmia as indication for cardiac pacemaker replacement I49.9 [facility] [address] 30712- 4102 Sep, [facility] [address] 63546- 8831 Sep, HTN (hypertension) I10 [facility] [id number] [place] [address] 84239- 5328 Sep, [place] [address] 15906- 1129 Sep, Body mass index (BMI) of 40.0-44.9 in adult Z68.41 ; Chronic pain G89.29 and Supraventricular tachycardia I47.1 [facility] [id number] [place] [address] 39156- 3067 Sep, [facility] [address] 40902- 8244 13 Sep, 2017 Sarcoidosis D86.9 [facility] [address] [address] 3890 Sep, Sarcoidosis D86.9 [facility] [id number] [place] [address] 58996- 7686 Sep, [facility] [id number] [place] [address] 03645- 6776 Sep, [facility] [id number] [place] [address] 71880- 4835 Sep, [facility] [id number] [place] [address] 38287- 0057 Sep, [facility] [id number] [place] [address] 90976- 2862 Sep, Left leg pain M79.605 [facility] [id number] [place] [address] 31189- 7380 Sep, HTN (hypertension) I10 [facility] [address] [place] [address] 53462- 8184 Sep, [facility] [id number] [place] [address] 27973- 2558 Sep, Post-traumatic stress disorder, unspecified F43.10 ; Major depressive disorder, recurrent, moderate F33.1 and Problems related to release from usp Z65.2 [facility] [address] [place] [address] 60408- 6756 Sep, [facility] [address] [address] 2543 Aug, [facility] [id number] [place] [address] 39600- 0008 Aug, Sarcoidosis D86.9 [facility] [address] [address] 2546 Aug, Sarcoidosis D86.9 [facility] [id number] [place] [address] 45239- 7543 30 Aug, 2017 HTN (hypertension) I10 [facility] [id number] [place] [address] 67223- 5987 18 Aug, 2017 Post-traumatic stress disorder, unspecified F43.10 ; Major depressive disorder, recurrent, moderate F33.1 and Problems related to release from usp Z65.2 [facility] [address] 47045- 9293 11 Aug, 2017 [place] [address] 99785- 9297 Aug, Left leg pain M79.605 [place] [address] 95278- 8292 26 Jul, 2017 Post-traumatic stress disorder, chronic F43.12 ; Anxiety F41.9 ; Problems related to release from usp Z65.2 and BMI 40.0-44.9, adult Z68.41 [place] [address] 47151- 4329 20 Jul, 2017 HTN (hypertension) I10 ; Body mass index (BMI) of 40.0-44.9 in adult Z68.41 ; Acute swimmer''s ear of both sides H60.333 and Chronic pain G89.29 [facility] [id number] [place] [address] 91693- 6287 19 Jul, 2017 Glaucoma H40.9 [facility] [id number] [place] [address] 23896- 7937 14 Jul, 2017 [facility] [id number] [place] [address] 13983- 9197 13 Jul, 2017 Sarcoidosis D86.9 [facility] [address] 37148- 2412 Jul, Left leg pain M79.605 [place] [address] 32464- 3785 12 Jul, 2017 Sarcoidosis D86.9 [facility] [id number] [address]- 1262 Jul, Post-traumatic stress disorder, unspecified F43.10 ; Major depressive disorder, recurrent, moderate F33.1 and Problems related to release from usp Z65.2 [facility] [id number] [address]- 2848 June, [facility] [id number] [place] [address] 02389 -2866 June, Sore throat J02.9 and BMI 40.0-44.9, adult Z68.41 [facility] [id number] [place] [address] 72350- 4291 June, [facility] [id number] [place] [address] 54825- 3620 June, [facility] [id number] [place] [address] 65312- 7383 June, [facility] [id number] [place] [address] 30477- 2196 June, Left leg pain M79.605 [facility] [id number] [place] [address] 51472- 7310 June, Sarcoidosis D86.9 [facility] [id number] [address]- 9481 June, [facility] [id number] [place] [address] 08088- 9875 June, [facility] [address], [place] [address]- 1469 June, Left leg pain M79.605 [facility] [id number] [address]- 8863 May, [facility] [address] [address]- 1577 May, [facility] [id number] [address]- 8649 May, [facility] [id number] [place] [address] 00887- 6188 May, Left leg pain M79.605 [facility] [address] [place] [address] 79413- 6586 May, Post-traumatic stress disorder, unspecified F43.10 ; Major depressive disorder, recurrent, moderate F33.1 and Problems related to release from usp Z65.2 [facility] [id number] [place] [address] 42132- 4660 May, Chronic pain G89.29 ; Anxiety F41.9 ; Chest pain, unspecified type R07.9 and BMI 40.0-44.9, adult Z68.41 [facility] [id number] [place] [address] 45261- 2004 30 Apr, 2017 [facility] [id number] [place] [address] 26740- 8565 Apr, Left leg pain M79.605 [facility] [facility] [id number] [place] [address] 70038- 7484 27 Apr, 2017 Post-traumatic stress disorder, unspecified F43.10 ; Problems related to release from usp Z65.2 ; Anxiety F41.9 and BMI 40.0-44.9 , adult Z68.41 [facility] [facility] [id number] [place] [address] 76854- 1524 Apr, [facility] [id number] [place] [address] 36230- 5940 Apr, Left leg pain M79.605 [facility] [facility] [id number] [place] [address] 11036- 1025 Apr, Post-traumatic stress disorder, unspecified F43.10 ; Major depressive disorder, recurrent, moderate F33.1 and Problems related to release from usp Z65.2 [place] [address] 16334- 3152 Apr, [facility] [address] 68804- 7562 12 Apr, 2017 Chronic pain G89.29 ; 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 ; Morbid (severe) obesity due to excess calories E66.01 ; Anxiety F41.9 and BMI 40.0-44.9, adult Z68.41 [facility] [address] 60606 -1781 Apr, Sore throat J02.9 and BMI 40.0-44.9, adult Z68.[address] 23606- 3259 02 Apr, 2017 Left leg pain M79.605 [facility] [address] [id number] Mar, Dental examination Z01.20 [place] [address] 97814- 4988 Mar, [facility] [address] [place] [address] 10068 -9459 Mar, Cough R05 ; Viral gastroenteritis A08.4 and BMI 40.0-44.9, adult Z68.41 [place] [address] 96056- 5095 Mar, Left leg pain M79.605 [place] [address] 40419- 3718 06 Mar, 2017 Post-traumatic stress disorder, unspecified F43.10 ; Major depressive disorder, recurrent, moderate F33.1 and Problems related to release from usp Z65.2 [place] [address] 01961- 2110 Feb, Left leg pain M79.605 [place] [address] 97866- 7781 Feb, [facility] [id number] [place] [address] 91602- 0241 Feb, BMI 40.0-44.9, adult Z68.41 ; Chronic pain syndrome G89.4 ; Migraine without aura and without status migrainosus, not intractable G43.009 ; Mitral valve prolapse I34.1 and 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 [place] [address] 24875- 4176 Feb, Post-traumatic stress disorder, chronic F43.12 ; Anxiety F41.9 ; Problems related to release from usp Z65.2 and BMI 40.0-44.9, adult Z68.41 [place] [address] 89923- 8427 Feb, Post-traumatic stress disorder, unspecified F43.10 ; Major depressive disorder, recurrent, moderate F33.1 and Problems related to release from usp Z65.2 [facility] [facility] [id number] [place] [address] 29561- 2271 Feb, Left leg pain M79.605 [place] [address] 15359- 0500 Jan, Post-traumatic stress disorder, unspecified F43.10 ; Major depressive disorder, recurrent, moderate F33.1 and Problems related to release from usp Z65.2 [facility] [facility] [id number] [place] [address] 10611- 0903 Jan, [facility] [id number] [place] [address] 21402- 1835 Jan, [facility] [id number] [place] [address] 80763- 7675 Jan, Anxiety F41.9 [facility] [id number] [place] [address] 31932- 4338 Jan, Left leg pain M79.605 [place] [address] 03778- 8206 Dec, Left leg pain M79.605 [facility] [address] [place] [address] 11345- 6990 Dec, [facility] [id number] [place] [address] 58869- 9245 Dec, Post-traumatic stress disorder, unspecified F43.10 ; Major depressive disorder, recurrent, moderate F33.1 and Problems related to release from usp Z65.2 [facility] [id number] [place] [address] 07109- 8321 Nov, Chronic pain G89.29 and Anxiety F41.9 [facility] [id number] [place] [address] 33076- 1317 Nov, Chronic pain G89.29 and Anxiety F41.9 [facility] [id number] [place] [address] 57341- 6694 16 Nov, 2016 Post-traumatic stress disorder, unspecified F43.10 ; Major depressive disorder, recurrent, moderate F33.1 and Problems related to release from usp Z65.2 [facility] [id number] [place] [address] 66626- 9582 09 Nov, 2016 Other abnormal findings in specimens from other organs, systems and tissues R89.8 ; Other male erectile dysfunction N52.8 ; Body mass index (BMI) of 40.0-44.9 in adult Z68.41 and Morbid (severe) obesity due to excess calories E66.01 [facility] [id number] [place] [address] 27195- 9963 02 Nov, 2016 Post-traumatic stress disorder, unspecified F43.10 ; Major depressive disorder, recurrent, moderate F33.1 and Problems related to release from usp Z65.2 [facility] [address] [place] [address] [id number] Oct, Dental examination Z01.20 [facility] [address] [place] [address] 87368- 7443 Oct, [place] [address] [place] [address] 63861- 7389 28 Oct, 2016 Encounter for immunization Z23 [place] [address] 47029- 8907 Oct, Chronic pain G89.29 ; Anxiety F41.9 ; Arrhythmia as indication for cardiac pacemaker replacement I49.9 and Glaucoma H40.9 [facility] [facility] [id number] [place] [address] 36869- 6220 Oct, Anxiety F41.9 ; Post-traumatic stress disorder, chronic F43.12 and Problems related to release from usp Z65.2 [facility] [facility] [id number] [place] [address] 84095- 7136 07 Oct, 2016 Post-traumatic stress disorder, unspecified F43.10 ; Major depressive disorder, recurrent, moderate F33.1 and Problems related to release from usp Z65.2 [facility] [facility] [id number] [place] [address] 42460- 0476 Sep, Chronic pain G89.29 and Anxiety F41.9 [facility] [facility] [id number] [place] [address] 36158- 0996 Sep, Post-traumatic stress disorder, unspecified F43.10 ; Major depressive disorder, recurrent, moderate F33.1 and Problems related to release from usp Z65.2 [facility] [facility] [id number] [place] [address] 66262- 6508 Sep, Post-traumatic stress disorder, unspecified F43.10 ; Major depressive disorder, recurrent, moderate F33.1 and Problems related to release from usp Z65.2 [facility] [facility] [id number] [place] [address] 14063- 1967 Sep, Chronic pain G89.29 [facility] [id number] [place] [address] 34721- 5404 Aug, Dental caries, unspecified K02.9 [facility] [id number] [place] [address] 55924- 0371 Aug, Sleep apnea, obstructive G47.33 ; Obesity E66.9 ; Chronic pain G89.29 ; HTN (hypertension) I10 ; Major depressive disorder, recurrent, moderate F33.1 ; Anxiety F41.9 ; Chronic tension headaches G44.229 ; Mitral valve prolapse I34.1 ; Arrhythmia as indication for cardiac pacemaker replacement I49.9 ; Dental caries, unspecified K02.9 ; Primary insomnia F51.01 and Hyperlipidemia E78.5 [facility] [id number] [place] [address] 83336- 7056 Aug, Post-traumatic stress disorder, unspecified F43.10 ; Major depressive disorder, recurrent, moderate F33.1 and Problems related to release from usp Z65.2 [facility] [facility] [id number] [place] [address] 65595- 8610 Aug, Dental examination Z01.20 [facility] [address] [id number] Aug, Dental examination Z01.20 [facility] [id number] [place] [address] 47755- 6466 Aug, Post-traumatic stress disorder, unspecified F43.10 ; Major depressive disorder, recurrent, moderate F33.1 and Problems related to release from usp Z65.2 [facility] [facility] [id number] [place] [address] 12527- 5646 Aug, Chronic pain G89.29 and Primary insomnia F51.01 [facility] [id number] [place] [address] 71695- 3243 Jul, [facility] [id number] [place] [address] 94060- 5333 Jul, [facility] [id number] [place] [address] 07140- 7200 Jul, Nausea R11.0 [facility] [id number] [place] [address] 04862- 0064 29 Abraham, 2017 Arrhythmia as indication for cardiac pacemaker replacement I49.9 [place] [address] [place] [address] 57710- 0071 13 Jul, 2016 Post-traumatic stress disorder, unspecified F43.10 ; Major depressive disorder, recurrent, moderate F33.1 and Problems related to release from usp Z65.2 [facility] [facility] [id number] [place] [address] 52902- 3905 09 Jul, 2016 Anxiety F41.9 [place] [address] 59463- 6690 08 Jul, 2016 Chronic pain G89.[address] 25481- 2600 Jul, Sleep apnea, obstructive G47.33 ; Hyperlipidemia E78.5 ; Chronic pain G89.29 ; Blindness and low vision H54.10 ; Major depressive disorder, recurrent, moderate F33.1 ; Anxiety F41.9 ; Mitral valve prolapse I34.1 ; Arrhythmia as indication for cardiac pacemaker replacement I49.9 ; Primary insomnia F51.01 ; Bilateral headaches R51 and Environmental allergies Z91.09 [id number] [place] [address] 28756- 7000 Jul, Post-traumatic stress disorder, unspecified F43.10 ; Major depressive disorder, recurrent, moderate F33.1 and Problems related to release from usp Z65.2 [place] [id number] [place] [address] 30783- 1941 June, Post-traumatic stress disorder, chronic F43.12 ; Anxiety F41.9 ; Problems related to release from usp Z65.2 ; Sleep apnea, obstructive G47.33 and Primary insomnia F51.01 [place] [id number] [place] [address] 88929- 4897 June, [place] [id number] [place] [address] 70079- 2993 June, [place] [id number] [place] [address] 83438- 2775 June, [facility] [address] [place] [address] 37408- 9970 June, Chronic pain G89.29 [facility] [id number] [place] [address] 49643- 4746 June, Chronic pain G89.29 [facility] [facility] [address] [place] [address] 21759- 6161 June, Lipoma of left lower extremity D17.24 ; Open wound T14.8 and Swelling of left lower extremity M79.89 [facility] [id number] [place] [address] 11575- 2536 June, Post-traumatic stress disorder, unspecified F43.10 ; Major depressive disorder, recurrent, moderate F33.1 and Problems related to release from usp Z65.2 [facility] [id number] [place] [address] 45438- 1098 May, Lipoma of left lower extremity D17.24 ; Major depressive disorder, recurrent, moderate F33.1 ; Sleep apnea, obstructive G47.33 ; Hyperlipidemia E78.5 ; Obesity E66.9 ; HTN (hypertension) I10 ; Glaucoma H40.9 ; CAD (coronary artery disease) I25.10 ; Chronic tension headaches G44.229 ; Chronic pain G89.29 ; Anxiety F41.9 ; Nausea R11.0 and Primary insomnia F51.01 [place] [address] [place] [address] 61567- 7612 May, [facility] [facility] [address] [place] [address] 89198- 4701 May, Chronic pain G89.29 [facility] [id number] [place] [address] 86145- 8011 May, [facility] [id number] [place] [address] 97637- 1881 Apr, Post-traumatic stress disorder, unspecified F43.10 ; Major depressive disorder, recurrent, moderate F33.1 and Problems related to release from usp Z65.2 [place] [address] [address]- 0468 Apr, Primary insomnia F51.01 ; Post-traumatic stress disorder, chronic F43.12 and Problems related to release from usp Z65.2 [facility] [id number] [place] [address] 42100- 7339 17 Apr, 2016 Post-traumatic stress disorder, unspecified F43.10 ; Major depressive disorder, recurrent, moderate F33.1 and Problems related to release from usp Z65.2 [facility] [id number] [place] [address] 65549- 7578 16 Apr, 2016 [facility] [id number] [place] [address] 74649- 2862 Apr, Sleep apnea, obstructive G47.33 ; Chronic pain G89.29 ; HTN (hypertension) I10 ; Mitral valve prolapse I34.1 ; Shoulder pain, left M25.512 ; Arrhythmia as indication for cardiac pacemaker replacement I49.9 ; Glaucoma H40.9 ; Bilateral headaches R51 ; Environmental allergies Z91.09 ; Primary insomnia F51.01 and Nausea R11.0 [place] [address] [place] [address] 27802- 3262 Apr, [place] [address] [place] [address] 70825- 0957 Apr, [facility] [id number] [place] [address] 59209- 2277 Apr, Post-traumatic stress disorder, unspecified F43.10 ; Major depressive disorder, recurrent, moderate F33.1 and Problems related to release from usp Z65.2 [place] [address] [place] [address] 12989- 2718 Apr, HTN (hypertension) I10 [facility] [id number] [place] [address] 13874- 0439 Apr, HTN (hypertension) I10 [facility] [facility] [address] [place] [address] 62508- 2730 14 Mar, 2016 Chronic pain G89.29 ; Primary insomnia F51.01 and Problems related to release from usp Z65.2 [facility] [id number] [place] [address] 22758- 8474 07 Mar, 2016 Post-traumatic stress disorder, unspecified F43.10 ; Major depressive disorder, recurrent, moderate F33.1 and Problems related to release from usp Z65.2 [place] [address] [place] [id number] [place] [address] 47368- 5425 Feb, Post-traumatic stress disorder, unspecified F43.10 ; Major depressive disorder, recurrent, moderate F33.1 and Problems related to release from usp Z65.2 [place] [address] [place] [id number] [place] [address] 73328- 8689 Feb, Chronic tension headaches G44.229 [place] [id number] [place] [address] 30053- 8015 Feb, Sleep apnea, obstructive G47.33 ; Obesity [...] pacemaker replacement I49.9 and Primary insomnia F51.01 [place] [id number] [place] [address] 77428- 1695 17 Feb, 2016 Post-traumatic stress disorder, unspecified F43.10 and Chronic pain G89.29 [place] [address] [place] [id number] [place] [address] 14818- 5417 Feb, [facility] [id number] [place] [address] [id number] Feb, Dental caries K02.9 [place] [address] [address] [place] [id number] [place] [address] 99611- 7176 Feb, [address] 26[address]- 9282 Feb, Post-traumatic stress disorder, unspecified F43.10 ; Major depressive disorder, recurrent, moderate F33.1 and Problems related to release from usp Z65.[address] 38498- 4890 Jan, Sleep apnea, obstructive G47.33 and Chronic pain G89.[address] 09481- 4863 Jan, [address] 094[address]- 9133 Jan, Dental examination Z01.[address] 36062- 9329 Jan, [place] [address] [address]- [address] Jan, [address] [address]- [address] Dec, Post-traumatic stress disorder, unspecified F43.10 ; Major depressive disorder, recurrent, moderate F33.1 and Problems related to release from usp Z65.[address] 27092- 7174 Dec, Encounter for immunization Z23 ; Problems related to release from usp Z65.2 ; Sleep apnea, obstructive G47.33 and Post-traumatic stress disorder, chronic F43.[address] 22708- 4861 Dec, Sleep apnea, obstructive G47.33 ; Hyperlipidemia E78.5 ; Chronic pain G89.29 ; Glaucoma H40.9 ; HTN (hypertension) I10 ; Post-traumatic stress disorder, unspecified F43.10 ; Anxiety F41.9 ; Chronic tension headaches G44.229 ; Mitral valve prolapse I34.1 and CAD (coronary artery disease) I25.10 [place] [address] [place] [id number] [place] [address] 48885- 2555 Dec, Post-traumatic stress disorder, unspecified F43.10 ; Major depressive disorder, recurrent, moderate F33.1 and Problems related to release from usp Z65.2 [place] [address] [place] [id number] [place] [address] 59245- 9637 Nov, Chronic pain G89.29 [place] [address] 13424- 3978 Nov, Post-traumatic stress disorder, unspecified F43.10 ; Major depressive disorder, recurrent, moderate F33.1 and Problems related to release from usp Z65.2 [place] [address] [place] [id number] [place] [address] 08207- 3661 Oct, [place] [address] 86884- 9673 Oct, [place] [address] [place] [id number] [place] [address] 46671- 8954 16 Oct, 2015 Post-traumatic stress disorder, unspecified F43.10 ; Major depressive disorder, recurrent, moderate F33.1 and Problems related to release from usp Z65.2 [place] [address] [place] [id number] [place] [address] 41180- 0574 08 Oct, 2015 [place] [address] [place] [id number] [place] [address] 34218- 6303 07 Oct, 2015 Environmental allergies Z91.09 ; Cough R05 and Open-angle glaucoma of both eyes H40.10X0 [place] [address] 42430- 9416 Sep, [place] [address] [place] [id number] [place] [address] 47844- 5352 Sep, Post-traumatic stress disorder, unspecified F43.10 ; Major depressive disorder, recurrent, moderate F33.1 and Problems related to release from usp Z65.2 [place] [id number] [place] [address] 21521- 9945 Sep, Chronic pain G89.29 [place] [address] [place] [id number] [place] [address] 54517- 6539 Sep, Pain in left shoulder M25.512 ; Pain in right shoulder M25.511 and Other chronic pain G89.29 [place] [address] [place] [id number] [place] [address] 09330- 3530 Sep, [place] [address] [place] [id number] [place] [address] 09559- 5237 Sep, [place] [address] [place] [id number] [place] [address] 91828- 3271 Sep, [facility] [address] [place] [id number] [place] [address] [id number] Aug, Dental examination Z01.20 [place] [address] [place] [id number] [place] [address] 78450- 7364 Aug, Post-traumatic stress disorder, unspecified F43.10 ; Open- angle glaucoma of both eyes H40.10X0 and Problems related to release from usp Z65.2 [place] [id number] [place] [address] 10516- 5043 Aug, [place] [address] [place] [id number] [place] [address] 07780- 0190 Aug, Sleep apnea, obstructive G47.33 ; Obesity E66.9 ; Hyperlipidemia E78.5 ; Bilateral headaches R51 ; HTN (hypertension) I10 ; Post- traumatic stress disorder, unspecified F43.10 ; Anxiety F41.9 ; Neuropathy G62.9 ; Glaucoma H40.9 and Chronic pain G89.29 [facility] [address] [place] [id number] [place] [address] [id number] Aug, Encounter for dental examination Z01.20 [place] [address] [place] [id number] [place] [address] 65906- 3204 Aug, Post-traumatic stress disorder, unspecified F43.10 ; Major depressive disorder, recurrent, moderate F33.1 and Problems related to release from usp Z65.2 [facility] [id number] [address] Aug, [facility] [id number] [address] 8785 Jul, [facility] [address] [place] [id number] [place] [address] 38773- 7250 Jul, Post-traumatic stress disorder, unspecified F43.10 and Major depressive disorder, recurrent, moderate F33.1 [facility] [address] [place] [id number] [place] [address] 20927- 8108 Jul, [facility] [address] [place] [id number] [place] [address] 00582- 8776 Jul, [facility] [address] [place] [id number] [place] [address] 74425- 3808 Jul, Chronic pain G89.29 [facility] [address] [place] [id number] [place] [address] 25282- 6909 June, Post-traumatic stress disorder, unspecified F43.10 and Major depressive disorder, recurrent, moderate F33.1 [facility] [id number] [address]- 1182 June, [facility] [id number] [place] [address] 41597- 7983 June, Chronic pain G89.29 [facility] [id number] [place] [address] 22422- 6833 June, Post-traumatic stress disorder, unspecified F43.10 and Major depressive disorder, recurrent, moderate F33.1 [facility] [id number] [address]- 5971 May, Post-traumatic stress disorder, unspecified F43.10 and Major depressive disorder, recurrent, moderate F33.1 [facility] [id number] [address]- 2756 15 May, 2015 [facility] [address] [place] [id number] [place] [address] 04203- 2646 08 May, 2015 [facility] [id number] [address]- 0359 May, [facility] [address] [place] [id number] [place] [address] 82308- 9041 Apr, [facility] [address] [place] [id number] [place] [address] 91553- 1750 Apr, Post-traumatic stress disorder, unspecified F43.10 and Sleep apnea, obstructive G47.33 [facility] [id number] [place] [address] 35680- 0731 Apr, [facility] [address] [place] [id number] [place] [address] 30551- 7167 Apr, Shoulder pain, left M25.512 [facility] [address] [place] [id number] [place] [address] 15177- 3718 Apr, Post-traumatic stress disorder, unspecified F43.10 and Major depressive disorder, recurrent, moderate F33.1 [facility] [id number] [address]- 0012 17 Apr, 2015 [facility] [id number] [place] [address] 37553- 1754 Apr, [facility] [address] [address]- 2423 Apr, [facility] [address] [place] [id number] [place] [address] 59459- 7277 07 Apr, 2015 Left shoulder pain M25.512 [facility] [address] [address]- 0308 Mar, [facility] [address] [place] [id number] [place] [address] 76673- 7575 Mar, [place] [address] [place] [id number] [place] [address] 73742- 6755 Mar, [place] [address] [place] [id number] [place] [address] Mar, Sleep apnea, obstructive G47.33 ; Obesity E66.9 ; Chronic pain G89.29 ; Hyperlipidemia E78.5 ; HTN (hypertension) I10 ; Blindness and low vision H54.10 ; Major depressive disorder, recurrent, moderate F33.1 and Anxiety F41.9 [place] [address] [place] [id number] [place] [address] 58275- 9387 Mar, [place] [address] [place] [id number] [place] [address] 08331- 7450 Mar, Post-traumatic stress disorder, unspecified F43.10 and Major depressive disorder, recurrent, moderate F33.1 [place] [address] [place] [id number] [place] [address] 63562- 5360 Mar, [place] [address] [place] [id number] [place] [address] 08422- 9852 Mar, HTN (hypertension) I10 ; Blindness and low vision H54.10 ; Obesity E66.9 ; Hyperlipidemia E78.5 ; Glaucoma H40.9 ; Chronic pain G89.29 and CAD (coronary artery disease) I25.10 [place] [address] [place] [id number] [place] [address] 48575- 5895 Feb, [place] [address] [place] [id number] [place] [address] 41954- 8970 Feb, Post-traumatic stress disorder, unspecified F43.10 ; Obesity E66.9 ; Sleep apnea, obstructive G47.33 and Open-angle glaucoma of both eyes H40.10X0 [place] [address] [place] [id number] [place] [address] 87537- 4199 Feb, Post-traumatic stress disorder, unspecified F43.10 and Major depressive disorder, recurrent, moderate F33.1 [place] [address] [place] [id number] [place] [address] 54176- 3101 Feb, [place] [address] 81311- 2020 Feb, [place] [address] [place] [id number] [place] [address] 78172- 7324 Feb, HTN (hypertension) I10 ; Post-traumatic stress disorder, unspecified F43.10 ; Blindness and low vision H54.10 ; Obesity E66.9 ; Hyperlipidemia E78.5 ; Chronic pain G89.29 ; Glaucoma H40.9 ; Mitral valve prolapse I34.1 and Bilateral headaches R51 [place] [address] 42368- 4881 Feb, [place] [address] [place] [id number] [place] [address] 57030- 2108 Feb, Post-traumatic stress disorder, unspecified F43.10 and Major depressive disorder, recurrent, moderate F33.1 [place] [address] [place] [id number] [place] [address] 25575- 7856 Feb, [place] [address] 56780- 7566 Feb, [place] [address] [place] [id number] [place] [address] 74467- 1324 Jan, [place] [address] [place] [id number] [place] [address] 35087- 2869 Jan, [place] [address] [place] [id number] [place] [address] 60349- 5334 Jan, Obesity E66.9 ; HTN (hypertension) I10 ; Blindness and low vision H54.10 ; Major depressive disorder, recurrent, moderate F33.1 ; Glaucoma H40.9 ; Hyperlipidemia E78.5 ; Sleep apnea, obstructive G47.33 ; Chronic pain G89.29 ; Anxiety F41.9 ; Chronic tension headaches G44.229 and Cough R05 [place] [address] [place] [id number] [place] [address] 56509- 2400 Jan, [facility] [address] [place] [id number] [place] [address] 93755- 5935 Jan, [facility] [address] [place] [id number] [place] [address] 23518- 6158 Jan, Post-traumatic stress disorder, unspecified F43.10 ; Obesity E66.9 ; Sleep apnea, obstructive G47.33 and Open-angle glaucoma of both eyes H40.10X0 [facility] [address] [place] [id number] [place] [address] 58256- 4340 Jan, [place] [address] [place] [id number] [place] [address] 10772- 7212 Jan, Post-traumatic stress disorder, unspecified F43.10 and Major depressive disorder, recurrent, moderate F33.1 [place] [address] [place] [id number] [place] [address] 66209- 1677 Dec, [place] [address] [place] [id number] [place] [address] 58803- 5230 Dec, Sleep apnea, obstructive G47.33 ; Obesity E66.9 ; Hyperlipidemia E78.5 ; Glaucoma H40.9 ; Chronic pain G89.29 ; HTN (hypertension ) I10 ; Blindness and low vision H54.10 ; Anxiety F41.9 and CAD (coronary artery disease) I25.10 [place] [address] [place] [id number] [place] [address] 98219- 9967 Nov, [place] [address] [place] [id number] [place] [address] 10624- 8686 Nov, [facility] [address] [place] [id number] [place] [address] 91675- 3253 Nov, [facility] [id number] [place] [address] 16950- 5876 Nov, [place] [address] [place] [id number] [place] [address] 68142- 3443 Nov, [facility] [address] [place] [id number] [place] [address] 07334- 2735 Nov, Encounter for immunization Z23 ; Sleep apnea, obstructive G47.33 ; Obesity E66.9 ; Hyperlipidemia E78.5 ; Glaucoma H40.9 ; Chronic pain G89.29 ; Anxiety F41.9 ; Chronic tension headaches G44.229 and HTN (hypertension ) I10 [facility] [address] 94789- 6908 Nov, [facility] [address] 50097- 6548 Nov, [facility] [address] 10890- 7109 Nov, Dizziness R42 [facility] [address] 50214- 9990 Nov, [facility] [address] 47573- 5414 Oct, [facility] [address] 03957- 9972 Oct, [facility] [address] 41701- 7484 Oct, [facility] [address] [place] [id number] [place] [address] 27907- 6393 Oct, [facility] [address] 89388- 3389 Oct, Dizziness 780.4 ; Essential hypertension 401.9 ; Obesity 278.00 ; Hyperlipidemia 272.4 ; Chronic pain 338.29 ; Glaucoma 365.9 and Anxiety 300.00 [facility] [address] [place] [id number] [place] [address] 71033- 4619 Oct, Essential hypertension 401.9 ; Hyperlipidemia 272.4 ; Glaucoma 365.9 ; Obesity 278.00 ; Chronic pain 338.29 and Allergy to insects V15.06 [facility] [address] [place] [id number] [address]- 6074 Sep, [facility] [address] [facility] [id number] [place] [address]- 7500 Sep, [facility] [address] [facility] [id number] [place] [address]- 6590 Sep, [facility] [address] [facility] [id number] [address]- 6380 Sep, [facility] [address] [facility] [id number] [place] [address]- 5436 Aug, Essential hypertension 401.9 ; Obesity 278.00 ; Hyperlipidemia 272.4 ; Glaucoma 365.9 ; Lipoma 214.9 ; Mitral valve prolapse 424.0 ; Angina at rest 413.9 ; Lymphedema 457.1 and Chronic pain 338.29 IMMUNIZATIONS No Known Immunizations SOCIAL HISTORY Never Assessed REASON FOR VISIT Blood pressure check- Andrea Ge RN PLAN OF CARE VITAL SIGNS Height 67 in 2017-09-14 Blood pressure systolic 116 mmHg 2017-09-14 Blood pressure diastolic 78 mmHg 2017-09-14 MEDICATIONS Unknown Medications RESULTS No Results PROCEDURES [...]
--- OUTSIDE RECORDS SUMMARY | 2018-02-04 14:29 | XMS REPORT ---
Author Author ALENA ÁLVAREZ [facility] Address [address] [place] [address] Care Team Providers Care Implementation Specialist Name Role Phone ALENA ÁLVAREZ Unavailable PROBLEMS Type Condition ICD9-CM Code UEW65-FU Code Onset Dates Condition Status SNOMED Code Problem Hyperlipidemia E78.5 Active 84057998 Problem Arrhythmia as indication for cardiac pacemaker replacement I49.9 Active 42587830 Problem Sleep apnea, obstructive G47.33 Active 24014912 Problem Primary insomnia F51.01 Active 1292701 Problem Chronic pain G89.29 Active 32493370 Problem Morbid (severe) obesity due to excess calories E66.01 Active 135235662 Problem Body mass index (BMI) of 40.0-44.9 in adult Z68.41 Active 079618296 Problem Other male erectile dysfunction N52.8 Active 404368008 Problem Supraventricular tachycardia I47.1 Active 0910333 Problem Sarcoidosis D86.9 Active 76994165 Problem HTN (hypertension) I10 Active 79787581 Problem Blindness and low vision H54.10 Active 994809004 Problem Myocarditis, unspecified chronicity, 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 Active 81320318 Problem Migraine without aura and without status migrainosus, not intractable G43.009 Active 386856420 Problem 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 Active 950961223 Problem Problems related to release from residential Z65.2 Active 693768749571993 Problem Chronic pain syndrome G89.4 Active 128743001 Problem Major depressive disorder, recurrent, moderate F33.1 Active 55079902 Problem Open-angle glaucoma of both eyes H40.10X0 Active 60468590 Problem Chronic tension headaches G44.229 Active 002262778 Problem Anxiety F41.9 Active 38880034 Problem Post-traumatic stress disorder, chronic F43.12 Active 195107225 Problem Environmental allergies Z91.09 Active 433079483 Problem Mitral valve prolapse I34.1 Active 297566646 Problem CAD (coronary artery disease) I25.10 Active 61841829 ALLERGIES No Information ENCOUNTERS Encounter Location Date Diagnosis [facility] [id number] [place] [address] 63651- 6727 Nov, [facility] [address] 07468- 3617 Oct, [facility] [address] 98907- 5860 Oct, [place] [address] 70575- 4362 Oct, Left leg pain M79.605 [place] [address] 87659- 6643 04 Oct, 2017 Post-traumatic stress disorder, unspecified F43.10 ; Major depressive disorder, recurrent, moderate F33.1 and Problems related to release from residential Z65.2 [place] [address] 71887- 1290 Sep, Arrhythmia as indication for cardiac pacemaker replacement I49.9 [place] [address] 42089- 6762 Sep, [place] [address] 76736- 6823 Sep, HTN (hypertension) I10 [place] [id number] [place] [address] 06751- 8614 Sep, [place] [address] 17933- 7590 Sep, Body mass index (BMI) of 40.0-44.9 in adult Z68.41 ; Chronic pain G89.29 and Supraventricular tachycardia I47.1 [facility] [id number] [place] [address] 85452- 0432 Sep, [facility] [address] 53412- 8442 13 Sep, 2017 Sarcoidosis D86.9 [facility] [address] [address] 4275 Sep, Sarcoidosis D86.9 [facility] [id number] [place] [address] 68746- 2006 Sep, [facility] [id number] [place] [address] 43935- 5696 Sep, [facility] [id number] [place] [address] 31903- 8023 Sep, [facility] [id number] [place] [address] 30163- 8471 Sep, [facility] [id number] [place] [address] 95911- 3491 Sep, Left leg pain M79.605 [facility] [id number] [place] [address] 26936- 2811 Sep, HTN (hypertension) I10 [facility] [id number] [place] [address] 50976- 0450 Sep, [facility] [id number] [place] [address] 31113- 7403 Sep, Post-traumatic stress disorder, unspecified F43.10 ; Major depressive disorder, recurrent, moderate F33.1 and Problems related to release from residential Z65.2 [facility] [id number] [place] [address] 66213- 9976 Sep, [facility] [address] [address] 2545 Aug, [facility] [id number] [place] [address] 33170- 4833 Aug, Sarcoidosis D86.9 [facility] [address] [address] 2546 Aug, Sarcoidosis D86.9 [facility] [id number] [place] [address] 04939- 7787 30 Aug, 2017 HTN (hypertension) I10 [place] [id number] [place] [address] 53978- 1268 18 Aug, 2017 Post-traumatic stress disorder, unspecified F43.10 ; Major depressive disorder, recurrent, moderate F33.1 and Problems related to release from residential Z65.2 [place] [address] 24982- 7680 11 Aug, 2017 [place] [address] 09820- 5839 Aug, Left leg pain M79.605 [place] [address] 46542- 0070 26 Jul, 2017 Post-traumatic stress disorder, chronic F43.12 ; Anxiety F41.9 ; Problems related to release from residential Z65.2 and BMI 40.0-44.9, adult Z68.41 [place] [address] 35461- 6939 20 Jul, 2017 HTN (hypertension) I10 ; Body mass index (BMI) of 40.0-44.9 in adult Z68.41 ; Acute swimmer''s ear of both sides H60.333 and Chronic pain G89.29 [place] [id number] [place] [address] 67747- 3105 19 Jul, 2017 Glaucoma H40.9 [place] [id number] [place] [address] 13855- 1316 14 Jul, 2017 [place] [id number] [place] [address] 83305- 9601 13 Jul, 2017 Sarcoidosis D86.9 [place] [address] 33420- 4955 Jul, Left leg pain M79.605 [place] [address] 29233- 4104 12 Jul, 2017 Sarcoidosis D86.9 [place] [id number] [address]- 3635 Jul, Post-traumatic stress disorder, unspecified F43.10 ; Major depressive disorder, recurrent, moderate F33.1 and Problems related to release from residential Z65.2 [facility] [id number] [address]- 0484 June, [facility] [id number] [place] [address] 08094 -1728 June, Sore throat J02.9 and BMI 40.0-44.9, adult Z68.41 [facility] [id number] [place] [address] 30072- 9600 June, [facility] [id number] [place] [address] 02007- 1008 June, [facility] [id number] [place] [address] 52088- 6075 June, [facility] [id number] [place] [address] 45635- 9849 June, Left leg pain M79.605 [facility] [id number] [place] [address] 39562- 6769 June, Sarcoidosis D86.9 [facility] [id number] [address]- 9795 June, [facility] [id number] [place] [address] 90876- 7639 June, [facility] [address] [address]- 0626 June, Left leg pain M79.605 [facility] [id number] [address]- 6077 May, [facility] [address] [address]- 3854 May, [facility] [id number] [address]- 9878 May, [facility] [id number] [place] [address] 41881- 3318 May, Left leg pain M79.605 [facility] [address] [place] [address] 56215- 7325 May, Post-traumatic stress disorder, unspecified F43.10 ; Major depressive disorder, recurrent, moderate F33.1 and Problems related to release from residential Z65.2 [place] [id number] [place] [address] 66779- 0944 May, Chronic pain G89.29 ; Anxiety F41.9 ; Chest pain, unspecified type R07.9 and BMI 40.0-44.9, adult Z68.41 [place] [id number] [place] [address] 08656- 9904 30 Apr, 2017 [place] [id number] [place] [address] 97556- 6267 Apr, Left leg pain M79.605 [place] [id number] [place] [address] 25211- 5277 27 Apr, 2017 Post-traumatic stress disorder, unspecified F43.10 ; Problems related to release from residential Z65.2 ; Anxiety F41.9 and BMI 40.0-44.9 , adult Z68.41 [place] [id number] [place] [address] 72883- 0633 Apr, [place] [id number] [place] [address] 54848- 9334 Apr, Left leg pain M79.605 [place] [id number] [place] [address] 09259- 1859 Apr, Post-traumatic stress disorder, unspecified F43.10 ; Major depressive disorder, recurrent, moderate F33.1 and Problems related to release from residential Z65.2 [place] [address] 33421- 8580 Apr, [facility] [address] 34641- 8687 12 Apr, 2017 Chronic pain G89.29 ; 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 ; Morbid (severe) obesity due to excess calories E66.01 ; Anxiety F41.9 and BMI 40.0-44.9, adult Z68.41 [facility] [address] 74980 -5825 Apr, Sore throat J02.9 and BMI 40.0-44.9, adult Z68.[address] 94102- 7800 02 Apr, 2017 Left leg pain M79.605 [facility] [address] [id number] Mar, Dental examination Z01.20 [place] [address] 10370- 8824 Mar, [facility] [address] [place] [address] 36548 -4478 Mar, Cough R05 ; Viral gastroenteritis A08.4 and BMI 40.0-44.9, adult Z68.41 [place] [address] 53529- 3390 Mar, Left leg pain M79.605 [place] [address] 40890- 1122 06 Mar, 2017 Post-traumatic stress disorder, unspecified F43.10 ; Major depressive disorder, recurrent, moderate F33.1 and Problems related to release from residential Z65.2 [place] [address] 22634- 3913 Feb, Left leg pain M79.605 [place] [address] 17366- 8742 Feb, [facility] [id number] [place] [address] 78078- 3590 Feb, BMI 40.0-44.9, adult Z68.41 ; Chronic pain syndrome G89.4 ; Migraine without aura and without status migrainosus, not intractable G43.009 ; Mitral valve prolapse I34.1 and 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 [place] [address] 82843- 2449 Feb, Post-traumatic stress disorder, chronic F43.12 ; Anxiety F41.9 ; Problems related to release from residential Z65.2 and BMI 40.0-44.9, adult Z68.41 [place] [address] 32239- 2263 Feb, Post-traumatic stress disorder, unspecified F43.10 ; Major depressive disorder, recurrent, moderate F33.1 and Problems related to release from residential Z65.2 [place] [id number] [place] [address] 01679- 5235 Feb, Left leg pain M79.605 [place] [address] 56611- 2105 Jan, Post-traumatic stress disorder, unspecified F43.10 ; Major depressive disorder, recurrent, moderate F33.1 and Problems related to release from residential Z65.2 [place] [id number] [place] [address] 12103- 0030 Jan, [place] [id number] [place] [address] 07513- 1424 Jan, [place] [id number] [place] [address] 44825- 3793 Jan, Anxiety F41.9 [facility] [id number] [place] [address] 35238- 6206 Jan, Left leg pain M79.605 [place] [address] 31865- 2530 Dec, Left leg pain M79.605 [facility] [id number] [place] [address] 79242- 1478 Dec, [facility] [id number] [place] [address] 77100- 5766 Dec, Post-traumatic stress disorder, unspecified F43.10 ; Major depressive disorder, recurrent, moderate F33.1 and Problems related to release from residential Z65.2 [facility] [id number] [place] [address] 34245- 7252 Nov, Chronic pain G89.29 and Anxiety F41.9 [place] [id number] [place] [address] 95033- 0223 Nov, Chronic pain G89.29 and Anxiety F41.9 [facility] [id number] [place] [address] 14858- 2777 16 Nov, 2016 Post-traumatic stress disorder, unspecified F43.10 ; Major depressive disorder, recurrent, moderate F33.1 and Problems related to release from residential Z65.2 [facility] [id number] [place] [address] 23288- 1360 09 Nov, 2016 Other abnormal findings in specimens from other organs, systems and tissues R89.8 ; Other male erectile dysfunction N52.8 ; Body mass index (BMI) of 40.0-44.9 in adult Z68.41 and Morbid (severe) obesity due to excess calories E66.01 [facility] [id number] [place] [address] 61555- 3165 02 Nov, 2016 Post-traumatic stress disorder, unspecified F43.10 ; Major depressive disorder, recurrent, moderate F33.1 and Problems related to release from residential Z65.2 [facility] [address] [place] [address] [id number] Oct, Dental examination Z01.20 [facility] [id number] [place] [address] 10446- 1500 Oct, [place] [id number] [place] [address] 09932- 1532 28 Oct, 2016 Encounter for immunization Z23 [place] [address] 73485- 4072 Oct, Chronic pain G89.29 ; Anxiety F41.9 ; Arrhythmia as indication for cardiac pacemaker replacement I49.9 and Glaucoma H40.9 [place] [id number] [place] [address] 61008- 9764 Oct, Anxiety F41.9 ; Post-traumatic stress disorder, chronic F43.12 and Problems related to release from residential Z65.2 [place] [id number] [place] [address] 20244- 7048 07 Oct, 2016 Post-traumatic stress disorder, unspecified F43.10 ; Major depressive disorder, recurrent, moderate F33.1 and Problems related to release from residential Z65.2 [place] [id number] [place] [address] 94449- 7450 Sep, Chronic pain G89.29 and Anxiety F41.9 [place] [id number] [place] [address] 90691- 7561 Sep, Post-traumatic stress disorder, unspecified F43.10 ; Major depressive disorder, recurrent, moderate F33.1 and Problems related to release from residential Z65.2 [place] [id number] [place] [address] 37588- 9691 Sep, Post-traumatic stress disorder, unspecified F43.10 ; Major depressive disorder, recurrent, moderate F33.1 and Problems related to release from residential Z65.2 [place] [id number] [place] [address] 31771- 7867 Sep, Chronic pain G89.29 [place] [id number] [place] [address] 21522- 9035 Aug, Dental caries, unspecified K02.9 [place] [id number] [place] [address] 00737- 8848 Aug, Sleep apnea, obstructive G47.33 ; Obesity E66.9 ; Chronic pain G89.29 ; HTN (hypertension) I10 ; Major depressive disorder, recurrent, moderate F33.1 ; Anxiety F41.9 ; Chronic tension headaches G44.229 ; Mitral valve prolapse I34.1 ; Arrhythmia as indication for cardiac pacemaker replacement I49.9 ; Dental caries, unspecified K02.9 ; Primary insomnia F51.01 and Hyperlipidemia E78.5 [place] [id number] [place] [address] 08316- 2101 Aug, Post-traumatic stress disorder, unspecified F43.10 ; Major depressive disorder, recurrent, moderate F33.1 and Problems related to release from residential Z65.2 [place] [id number] [place] [address] 68704- 2144 Aug, Dental examination Z01.20 [facility] [address] [id number] Aug, Dental examination Z01.20 [facility] [id number] [place] [address] 68189- 3108 Aug, Post-traumatic stress disorder, unspecified F43.10 ; Major depressive disorder, recurrent, moderate F33.1 and Problems related to release from residential Z65.2 [place] [id number] [place] [address] 60027- 2456 Aug, Chronic pain G89.29 and Primary insomnia F51.01 [facility] [id number] [place] [address] 10118- 2258 Jul, [facility] [id number] [place] [address] 12445- 6918 Jul, [place] [id number] [place] [address] 85230- 9760 Jul, Nausea R11.0 [facility] [id number] [place] [address] 16850- 7129 29 Abraham, 2017 Arrhythmia as indication for cardiac pacemaker replacement I49.9 [place] [address] [place] [address] 86873- 7189 13 Jul, 2016 Post-traumatic stress disorder, unspecified F43.10 ; Major depressive disorder, recurrent, moderate F33.1 and Problems related to release from residential Z65.2 [place] [id number] [place] [address] 85807- 2410 09 Jul, 2016 Anxiety F41.9 [place] [address] 25405- 6952 08 Jul, 2016 Chronic pain G89.[address] 50778- 1083 Jul, Sleep apnea, obstructive G47.33 ; Hyperlipidemia E78.5 ; Chronic pain G89.29 ; Blindness and low vision H54.10 ; Major depressive disorder, recurrent, moderate F33.1 ; Anxiety F41.9 ; Mitral valve prolapse I34.1 ; Arrhythmia as indication for cardiac pacemaker replacement I49.9 ; Primary insomnia F51.01 ; Bilateral headaches R51 and Environmental allergies Z91.09 [place] [id number] [place] [address] 10460- 0447 Jul, Post-traumatic stress disorder, unspecified F43.10 ; Major depressive disorder, recurrent, moderate F33.1 and Problems related to release from residential Z65.2 [id number] [place] [address] 69901- 9526 June, Post-traumatic stress disorder, chronic F43.12 ; Anxiety F41.9 ; Problems related to release from residential Z65.2 ; Sleep apnea, obstructive G47.33 and Primary insomnia F51.01 [address] [id number] [place] [address] 47588- 4277 June, [place] [id number] [place] [address] 52099- 2381 June, [place] [id number] [place] [address] 00651- 4897 June, [place] [address] [place] [address] 80989- 7706 June, Chronic pain G89.29 [place] [id number] [place] [address] 57110- 6490 June, Chronic pain G89.29 [place] [address] [place] [address] 91482- 8276 June, Lipoma of left lower extremity D17.24 ; Open wound T14.8 and Swelling of left lower extremity M79.89 [place] [id number] [place] [address] 70848- 7859 June, Post-traumatic stress disorder, unspecified F43.10 ; Major depressive disorder, recurrent, moderate F33.1 and Problems related to release from residential Z65.2 [place] [id number] [place] [address] 36367- 9388 May, Lipoma of left lower extremity D17.24 ; Major depressive disorder, recurrent, moderate F33.1 ; Sleep apnea, obstructive G47.33 ; Hyperlipidemia E78.5 ; Obesity E66.9 ; HTN (hypertension) I10 ; Glaucoma H40.9 ; CAD (coronary artery disease) I25.10 ; Chronic tension headaches G44.229 ; Chronic pain G89.29 ; Anxiety F41.9 ; Nausea R11.0 and Primary insomnia F51.01 [place] [id number] [place] [address] 71369- 2936 May, [place] [id number] [place] [address] 25071- 4677 May, Chronic pain G89.29 [place] [id number] [place] [address] 88477- 2161 May, [place] [id number] [place] [address] 25152- 8480 Apr, Post-traumatic stress disorder, unspecified F43.10 ; Major depressive disorder, recurrent, moderate F33.1 and Problems related to release from residential Z65.2 [place] [address] [address]- 9772 Apr, Primary insomnia F51.01 ; Post-traumatic stress disorder, chronic F43.12 and Problems related to release from residential Z65.2 [place] [id number] [place] [address] 56950- 2990 17 Apr, 2016 Post-traumatic stress disorder, unspecified F43.10 ; Major depressive disorder, recurrent, moderate F33.1 and Problems related to release from residential Z65.2 [place] [id number] [place] [address] 11731- 3364 16 Apr, 2016 [place] [id number] [place] [address] 44112- 7958 Apr, Sleep apnea, obstructive G47.33 ; Chronic pain G89.29 ; HTN (hypertension) I10 ; Mitral valve prolapse I34.1 ; Shoulder pain, left M25.512 ; Arrhythmia as indication for cardiac pacemaker replacement I49.9 ; Glaucoma H40.9 ; Bilateral headaches R51 ; Environmental allergies Z91.09 ; Primary insomnia F51.01 and Nausea R11.0 [place] [address] [place] [address] 38512- 9160 Apr, [place] [address] [place] [address] 79961- 9515 Apr, [place] [id number] [place] [address] 01953- 8641 Apr, Post-traumatic stress disorder, unspecified F43.10 ; Major depressive disorder, recurrent, moderate F33.1 and Problems related to release from residential Z65.2 [place] [id number] [place] [address] 67656- 2266 Apr, HTN (hypertension) I10 [place] [id number] [place] [address] 20527- 2084 Apr, HTN (hypertension) I10 [place] [address] [place] [address] 22995- 1310 14 Mar, 2016 Chronic pain G89.29 ; Primary insomnia F51.01 and Problems related to release from residential Z65.2 [place] [id number] [place] [address] 46346- 6373 07 Mar, 2016 Post-traumatic stress disorder, unspecified F43.10 ; Major depressive disorder, recurrent, moderate F33.1 and Problems related to release from residential Z65.2 [place] [id number] [place] [address] 70963- 1529 Feb, Post-traumatic stress disorder, unspecified F43.10 ; Major depressive disorder, recurrent, moderate F33.1 and Problems related to release from residential Z65.2 [place] [id number] [place] [address] 14505- 1812 Feb, Chronic tension headaches G44.229 [id number] [place] [address] 38337- 0690 Feb, Sleep apnea, obstructive G47.33 ; Obesity [...] pacemaker replacement I49.9 and Primary insomnia F51.01 [place] [id number] [place] [address] [id number]- [id number] 17 Feb, 2016 Post-traumatic stress disorder, unspecified F43.10 and Chronic pain G89.29 [place] [address] [place] [id number] [place] [address] 94910- 5173 Feb, [facility] [id number] [place] [address] [id number] Feb, Dental caries K02.9 [place] [id number] [place] [address] 27374- 3300 Feb, [address] 02359- 4362 Feb, Post-traumatic stress disorder, unspecified F43.10 ; Major depressive disorder, recurrent, moderate F33.1 and Problems related to release from residential Z65.[address] 10224- 0141 Jan, Sleep apnea, obstructive G47.33 and Chronic pain G89.[address] 29693- 3741 Jan, [address] 43198- 9718 Jan, Dental examination Z01.[address] 12281- 4447 Jan, [place] [address] 6[address]- 3333 Jan, [address] 89088- 2409 Dec, Post-traumatic stress disorder, unspecified F43.10 ; Major depressive disorder, recurrent, moderate F33.1 and Problems related to release from residential Z65.[address] 87704- 2562 Dec, Encounter for immunization Z23 ; Problems related to release from residential Z65.2 ; Sleep apnea, obstructive G47.33 and Post-traumatic stress disorder, chronic F43.[address] 26924- 6987 Dec, Sleep apnea, obstructive G47.33 ; Hyperlipidemia E78.5 ; Chronic pain G89.29 ; Glaucoma H40.9 ; HTN (hypertension) I10 ; Post-traumatic stress disorder, unspecified F43.10 ; Anxiety F41.9 ; Chronic tension headaches G44.229 ; Mitral valve prolapse I34.1 and CAD (coronary artery disease) I25.10 [place] [id number] [place] [address] 82219- 7741 Dec, Post-traumatic stress disorder, unspecified F43.10 ; Major depressive disorder, recurrent, moderate F33.1 and Problems related to release from residential Z65.2 [place] [id number] [place] [address] 20827- 4628 Nov, Chronic pain G89.29 [place] [address] 60877- 4839 Nov, Post-traumatic stress disorder, unspecified F43.10 ; Major depressive disorder, recurrent, moderate F33.1 and Problems related to release from residential Z65.2 [place] [id number] [place] [address] 99505- 3413 Oct, [place] [address] 46187- 4045 Oct, [place] [address] [id number] [place] [address] 96999- 5283 16 Oct, 2015 Post-traumatic stress disorder, unspecified F43.10 ; Major depressive disorder, recurrent, moderate F33.1 and Problems related to release from residential Z65.2 [place] [id number] [place] [address] 63084- 6863 08 Oct, 2015 [place] [address] [id number] [place] [address] 84418- 6539 07 Oct, 2015 Environmental allergies Z91.09 ; Cough R05 and Open-angle glaucoma of both eyes H40.10X0 [place] [address] 91041- 0183 Sep, [place] [address] [id number] [place] [address] 31091- 3353 Sep, Post-traumatic stress disorder, unspecified F43.10 ; Major depressive disorder, recurrent, moderate F33.1 and Problems related to release from residential Z65.2 [place] [id number] [place] [address] 61290- 0432 Sep, Chronic pain G89.29 [place] [id number] [place] [address] 02366- 0955 Sep, Pain in left shoulder M25.512 ; Pain in right shoulder M25.511 and Other chronic pain G89.29 [place] [id number] [place] [address] 87481- 5517 Sep, [place] [id number] [place] [address] 55319- 2900 Sep, [place] [id number] [place] [address] 91581- 5988 Sep, [facility] [id number] [place] [address] [id number] Aug, Dental examination Z01.20 [place] [id number] [place] [address] 97540- 4302 Aug, Post-traumatic stress disorder, unspecified F43.10 ; Open- angle glaucoma of both eyes H40.10X0 and Problems related to release from residential Z65.2 [place] [id number] [place] [address] 56944- 7176 Aug, [place] [id number] [place] [address] 29293- 5756 Aug, Sleep apnea, obstructive G47.33 ; Obesity E66.9 ; Hyperlipidemia E78.5 ; Bilateral headaches R51 ; HTN (hypertension) I10 ; Post- traumatic stress disorder, unspecified F43.10 ; Anxiety F41.9 ; Neuropathy G62.9 ; Glaucoma H40.9 and Chronic pain G89.29 [facility] [id number] [place] [address] [id number] Aug, Encounter for dental examination Z01.20 [place] [id number] [place] [address] 15535- 8424 Aug, Post-traumatic stress disorder, unspecified F43.10 ; Major depressive disorder, recurrent, moderate F33.1 and Problems related to release from residential Z65.2 [facility] [id number] [address]- 5320 Aug, [facility] [id number] [address]- 5638 Jul, [facility] [id number] [place] [address] 26490- 2809 Jul, Post-traumatic stress disorder, unspecified F43.10 and Major depressive disorder, recurrent, moderate F33.1 [facility] [address] [id number] [place] [address] 40597- 7729 Jul, [facility] [id number] [place] [address] 32982- 2165 Jul, [facility] [id number] [place] [address] 65024- 3264 Jul, Chronic pain G89.29 [facility] [address] [id number] [place] [address] 28725- 5070 June, Post-traumatic stress disorder, unspecified F43.10 and Major depressive disorder, recurrent, moderate F33.1 [facility] [address] [address]- 4280 June, [facility] [id number] [place] [address] 30057- 0241 June, Chronic pain G89.29 [facility] [id number] [place] [address] 03178- 0692 June, Post-traumatic stress disorder, unspecified F43.10 and Major depressive disorder, recurrent, moderate F33.1 [facility] [address] [address]- 9327 May, Post-traumatic stress disorder, unspecified F43.10 and Major depressive disorder, recurrent, moderate F33.1 [facility] [address] [address]- 6139 15 May, 2015 [facility] [id number] [place] [address] 24890- 5230 08 May, 2015 [facility] [address] [address]- 0548 May, [facility] [id number] [place] [address] 44824- 1853 Apr, [facility] [id number] [place] [address] 74330- 4740 Apr, Post-traumatic stress disorder, unspecified F43.10 and Sleep apnea, obstructive G47.33 [facility] [id number] [place] [address] 65202- 6649 Apr, [facility] [id number] [place] [address] 46333- 5406 Apr, Shoulder pain, left M25.512 [facility] [id number] [place] [address] 56975- 1931 Apr, Post-traumatic stress disorder, unspecified F43.10 and Major depressive disorder, recurrent, moderate F33.1 [facility] [address] [address]- 6435 17 Apr, 2015 [facility] [id number] [place] [address] 51512- 3842 Apr, [facility] [address] [address]- 9023 Apr, [facility] [id number] [place] [address] 90457- 0373 07 Apr, 2015 Left shoulder pain M25.512 [facility] [address] [address]- 2668 Mar, [facility] [id number] [place] [address] 17540- 6790 Mar, [place] [address] [id number] [place] [address] 86430- 9291 Mar, [place] [address] [place] [id number] [place] [address]- 4350 Mar, Sleep apnea, obstructive G47.33 ; Obesity E66.9 ; Chronic pain G89.29 ; Hyperlipidemia E78.5 ; HTN (hypertension) I10 ; Blindness and low vision H54.10 ; Major depressive disorder, recurrent, moderate F33.1 and Anxiety F41.9 [place] [address] [id number] [place] [address] 12690- 8243 Mar, [place] [address] [id number] [place] [address] 41788- 3892 Mar, Post-traumatic stress disorder, unspecified F43.10 and Major depressive disorder, recurrent, moderate F33.1 [place] [address] [id number] [place] [address] 47299- 5608 Mar, [place] [id number] [place] [address] 49700- 7742 Mar, HTN (hypertension) I10 ; Blindness and low vision H54.10 ; Obesity E66.9 ; Hyperlipidemia E78.5 ; Glaucoma H40.9 ; Chronic pain G89.29 and CAD (coronary artery disease) I25.10 [place] [id number] [place] [address] 45096- 1194 Feb, [place] [id number] [place] [address] 18782- 9330 Feb, Post-traumatic stress disorder, unspecified F43.10 ; Obesity E66.9 ; Sleep apnea, obstructive G47.33 and Open-angle glaucoma of both eyes H40.10X0 [place] [id number] [place] [address] 08134- 1237 Feb, Post-traumatic stress disorder, unspecified F43.10 and Major depressive disorder, recurrent, moderate F33.1 [place] [address] [id number] [place] [address] 80391- 8790 Feb, [place] [address] 13091- 7182 Feb, [place] [address] [id number] [place] [address] 79361- 0886 Feb, HTN (hypertension) I10 ; Post-traumatic stress disorder, unspecified F43.10 ; Blindness and low vision H54.10 ; Obesity E66.9 ; Hyperlipidemia E78.5 ; Chronic pain G89.29 ; Glaucoma H40.9 ; Mitral valve prolapse I34.1 and Bilateral headaches R51 [place] [address] 69962- 6718 Feb, [place] [address] [id number] [place] [address] 96458- 9780 Feb, Post-traumatic stress disorder, unspecified F43.10 and Major depressive disorder, recurrent, moderate F33.1 [place] [address] [id number] [place] [address] 98990- 2944 Feb, [place] [address] 77108- 9235 Feb, [place] [address] [place] [id number] [place] [address] 86145- 2821 Jan, [place] [address] [id number] [place] [address] 15489- 6682 Jan, [place] [address] [place] [id number] [place] [address] 37329- 2221 Jan, Obesity E66.9 ; HTN (hypertension) I10 ; Blindness and low vision H54.10 ; Major depressive disorder, recurrent, moderate F33.1 ; Glaucoma H40.9 ; Hyperlipidemia E78.5 ; Sleep apnea, obstructive G47.33 ; Chronic pain G89.29 ; Anxiety F41.9 ; Chronic tension headaches G44.229 and Cough R05 [place] [id number] [place] [address] 55788- 1294 Jan, [facility] [address] [id number] [place] [address] 63470- 8481 Jan, [facility] [address] [id number] [place] [address] 42910- 9055 Jan, Post-traumatic stress disorder, unspecified F43.10 ; Obesity E66.9 ; Sleep apnea, obstructive G47.33 and Open-angle glaucoma of both eyes H40.10X0 [facility] [address] [id number] [place] [address] 23358- 8757 Jan, [place] [address] [id number] [place] [address] 16755- 0700 Jan, Post-traumatic stress disorder, unspecified F43.10 and Major depressive disorder, recurrent, moderate F33.1 [place] [address] [place] [id number] [place] [address] 69441- 6285 Dec, [place] [address] [id number] [place] [address] 27444- 7458 Dec, Sleep apnea, obstructive G47.33 ; Obesity E66.9 ; Hyperlipidemia E78.5 ; Glaucoma H40.9 ; Chronic pain G89.29 ; HTN (hypertension ) I10 ; Blindness and low vision H54.10 ; Anxiety F41.9 and CAD (coronary artery disease) I25.10 [place] [id number] [place] [address] 16353- 6331 Nov, [place] [address] [place] [id number] [place] [address] 39836- 2588 Nov, [facility] [id number] [place] [address] 04816- 4490 Nov, [facility] [id number] [place] [address] 17083- 2387 Nov, [place] [id number] [place] [address] 43560- 7504 Nov, [facility] [id number] [place] [address] 40819- 2759 Nov, Encounter for immunization Z23 ; Sleep apnea, obstructive G47.33 ; Obesity E66.9 ; Hyperlipidemia E78.5 ; Glaucoma H40.9 ; Chronic pain G89.29 ; Anxiety F41.9 ; Chronic tension headaches G44.229 and HTN (hypertension ) I10 [facility] [address] 08411- 0959 Nov, [facility] [address] 54169- 3147 Nov, [facility] [address] 73441- 8861 Nov, Dizziness R42 [facility] [address] 02330- 7417 Nov, [facility] [address] 02750- 5887 Oct, [facility] [address] 55414- 9853 Oct, [facility] [address] 25777- 9887 Oct, [facility] [id number] [place] [address] 08105- 4443 Oct, [facility] [address] 85564- 4032 Oct, Dizziness 780.4 ; Essential hypertension 401.9 ; Obesity 278.00 ; Hyperlipidemia 272.4 ; Chronic pain 338.29 ; Glaucoma 365.9 and Anxiety 300.00 [facility] [id number] [place] [address] 34313- 3636 Oct, Essential hypertension 401.9 ; Hyperlipidemia 272.4 ; Glaucoma 365.9 ; Obesity 278.00 ; Chronic pain 338.29 and Allergy to insects V15.06 [facility] [id number] [address]- 5723 Sep, [facility] [address] [facility] [id number] [place] [address]- 7312 Sep, [facility] [address] [facility] [id number] [place] [address]- 4817 Sep, [facility] [address] [facility] [id number] [address]- 1702 Sep, [facility] [address] [facility] [id number] [address]- 6734 Aug, Essential hypertension 401.9 ; Obesity 278.00 ; Hyperlipidemia 272.4 ; Glaucoma 365.9 ; Lipoma 214.9 ; Mitral valve prolapse 424.0 ; Angina at rest 413.9 ; Lymphedema 457.1 and Chronic pain 338.29 IMMUNIZATIONS No Known Immunizations SOCIAL HISTORY Never Assessed REASON FOR VISIT bp check-[facility] PLAN OF CARE VITAL SIGNS Height 67 in 2017-09-07 Blood pressure systolic 128 mmHg 2017-09-07 Blood pressure diastolic 80 mmHg 2017-09-07 MEDICATIONS Unknown Medications RESULTS No Results PROCEDURES [...]
--- OUTSIDE RECORDS SUMMARY | 2018-02-04 14:29 | XMS REPORT ---
Author Author ALENA ÁLVAREZ [facility] Address [address] [place] [address] Care Team Providers Care Anchor Operator Name Role Phone ALENA ÁLVAREZ Unavailable PROBLEMS Type Condition ICD9-CM Code [id number] Code Onset Dates Condition Status SNOMED Code Problem Hyperlipidemia E78.5 Active 07037353 Problem Arrhythmia as indication for cardiac pacemaker replacement I49.9 Active 40700416 Problem Sleep apnea, obstructive G47.33 Active 01959911 Problem Primary insomnia F51.01 Active 0173999 Problem Chronic pain G89.29 Active 06598144 Problem Morbid (severe) obesity due to excess calories E66.01 Active 603945455 Problem Body mass index (BMI) of 40.0-44.9 in adult Z68.41 Active 447742284 Problem Other male erectile dysfunction N52.8 Active 094916068 Problem Supraventricular tachycardia I47.1 Active 0981841 Problem Sarcoidosis D86.9 Active 85574427 Problem HTN (hypertension) I10 Active 49494674 Problem Blindness and low vision H54.10 Active 549639871 Problem Myocarditis, unspecified chronicity, 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 Active 35961589 Problem Migraine without aura and without status migrainosus, not intractable G43.009 Active 434364137 Problem 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 Active 883416152 Problem Problems related to release from half-way Z65.2 Active [id number] Problem Chronic pain syndrome G89.4 Active 084813735 Problem Major depressive disorder, recurrent, moderate F33.1 Active 23417940 Problem Open-angle glaucoma of both eyes H40.10X0 Active 06838125 Problem Chronic tension headaches G44.229 Active 875427731 Problem Anxiety F41.9 Active 53352011 Problem Post-traumatic stress disorder, chronic F43.12 Active 526010614 Problem Environmental allergies Z91.09 Active 906565900 Problem Mitral valve prolapse I34.1 Active 357643363 Problem CAD (coronary artery disease) I25.10 Active 31492371 ALLERGIES No Information ENCOUNTERS Encounter Location Date Diagnosis [facility] [id number] [place] [address] 48066- 0259 Nov, [facility] [address] 01648- 1674 Oct, [facility] [address] 63814- 2263 Oct, [place] [address] 40772- 9997 Oct, Left leg pain M79.605 [place] [address] 77337- 0606 04 Oct, 2017 Post-traumatic stress disorder, unspecified F43.10 ; Major depressive disorder, recurrent, moderate F33.1 and Problems related to release from half-way Z65.2 [place] [address] 23006- 5469 Sep, Arrhythmia as indication for cardiac pacemaker replacement I49.9 [place] [address] 48817- 6517 Sep, [place] [address] 12522- 3847 Sep, HTN (hypertension) I10 [place] [id number] [place] [address] 28163- 3024 Sep, [place] [address] 81097- 2053 Sep, Body mass index (BMI) of 40.0-44.9 in adult Z68.41 ; Chronic pain G89.29 and Supraventricular tachycardia I47.1 [facility] [id number] [place] [address] 72932- 3457 Sep, [facility] [address] 02219- 2308 13 Sep, 2017 Sarcoidosis D86.9 [facility] [address], [place] [address] 8262 Sep, Sarcoidosis D86.9 [facility] [id number] [place] [address] 61108- 8416 Sep, [facility] [id number] [place] [address] 21443- 3886 Sep, [facility] [id number] [place] [address] 26745- 6505 Sep, [facility] [id number] [place] [address] 37724- 2201 Sep, [facility] [id number] [place] [address] 05255- 8941 Sep, Left leg pain M79.605 [facility] [id number] [place] [address] 34950- 0214 Sep, HTN (hypertension) I10 [facility] [id number] [place] [address] 89238- 4811 Sep, [facility] [id number] [place] [address] 64533- 9534 Sep, Post-traumatic stress disorder, unspecified F43.10 ; Major depressive disorder, recurrent, moderate F33.1 and Problems related to release from half-way Z65.2 [facility] [address] [place] [address] 26603- 1936 Sep, [facility] [address], [place] [address] 2544 Aug, [facility] [id number] [place] [address] 64727- 0485 Aug, Sarcoidosis D86.9 [facility] [address], [place] [address] 2546 Aug, Sarcoidosis D86.9 [facility] [id number] [place] [address] 51441- 0883 30 Aug, 2017 HTN (hypertension) I10 [place] [id number] [place] [address] 82841- 5237 18 Aug, 2017 Post-traumatic stress disorder, unspecified F43.10 ; Major depressive disorder, recurrent, moderate F33.1 and Problems related to release from half-way Z65.2 [place] [address] 26381- 4630 11 Aug, 2017 [place] [address] 17661- 7043 Aug, Left leg pain M79.605 [place] [address] 60673- 9454 26 Jul, 2017 Post-traumatic stress disorder, chronic F43.12 ; Anxiety F41.9 ; Problems related to release from half-way Z65.2 and BMI 40.0-44.9, adult Z68.41 [place] [address] 69511- 6531 20 Jul, 2017 HTN (hypertension) I10 ; Body mass index (BMI) of 40.0-44.9 in adult Z68.41 ; Acute swimmer''s ear of both sides H60.333 and Chronic pain G89.29 [place] [id number] [place] [address] 77969- 8497 19 Jul, 2017 Glaucoma H40.9 [place] [id number] [place] [address] 88776- 2556 14 Jul, 2017 [place] [id number] [place] [address] 58760- 9543 13 Jul, 2017 Sarcoidosis D86.9 [place] [address] 34799- 9241 Jul, Left leg pain M79.605 [place] [address] 96898- 7738 12 Jul, 2017 Sarcoidosis D86.9 [place] [address] [address]- 0625 Jul, Post-traumatic stress disorder, unspecified F43.10 ; Major depressive disorder, recurrent, moderate F33.1 and Problems related to release from half-way Z65.2 [facility] [address] [address] 8236 June, [facility] [id number] [place] [address] 28737 -6221 June, Sore throat J02.9 and BMI 40.0-44.9, adult Z68.41 [facility] [id number] [place] [address] 07068- 0243 June, [facility] [id number] [place] [address] 75698- 9827 June, [facility] [id number] [place] [address] 14092- 7398 June, [facility] [id number] [place] [address] 64569- 8972 June, Left leg pain M79.605 [facility] [id number] [place] [address] 04480- 3481 June, Sarcoidosis D86.9 [facility] [id number] [address]- 3328 June, [facility] [id number] [place] [address] 50643- 1201 June, [facility] [address], [place] [address]- 3251 June, Left leg pain M79.605 [facility] [id number] [address]- 4579 May, [facility] [address], [place] [address]- 1085 May, [facility] [address] [place] [address]- 0210 May, [facility] [id number] [place] [address] 31687- 8942 May, Left leg pain M79.605 [facility] [address] [place] [address] 51516- 7832 May, Post-traumatic stress disorder, unspecified F43.10 ; Major depressive disorder, recurrent, moderate F33.1 and Problems related to release from half-way Z65.2 [place] [id number] [place] [address] 39071- 2216 May, Chronic pain G89.29 ; Anxiety F41.9 ; Chest pain, unspecified type R07.9 and BMI 40.0-44.9, adult Z68.41 [place] [id number] [place] [address] 10101- 7636 30 Apr, 2017 [place] [id number] [place] [address] 24383- 6220 Apr, Left leg pain M79.605 [place] [id number] [place] [address] 58809- 1904 27 Apr, 2017 Post-traumatic stress disorder, unspecified F43.10 ; Problems related to release from half-way Z65.2 ; Anxiety F41.9 and BMI 40.0-44.9 , adult Z68.41 [place] [id number] [place] [address] 70017- 5523 Apr, [place] [id number] [place] [address] 33055- 7360 Apr, Left leg pain M79.605 [place] [id number] [place] [address] 77122- 2327 Apr, Post-traumatic stress disorder, unspecified F43.10 ; Major depressive disorder, recurrent, moderate F33.1 and Problems related to release from half-way Z65.2 [place] [address] 46012- 8891 Apr, [facility] [address] 11651- 2192 12 Apr, 2017 Chronic pain G89.29 ; 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 ; Morbid (severe) obesity due to excess calories E66.01 ; Anxiety F41.9 and BMI 40.0-44.9, adult Z68.41 [facility] [address] 33822 -8427 Apr, Sore throat J02.9 and BMI 40.0-44.9, adult Z68.[address] 44806- 9051 02 Apr, 2017 Left leg pain M79.605 [facility] [address] [id number] Mar, Dental examination Z01.20 [place] [address] 36919- 4469 Mar, [facility] [address] [place] [address] 19964 -6482 Mar, Cough R05 ; Viral gastroenteritis A08.4 and BMI 40.0-44.9, adult Z68.41 [place] [address] 95770- 6659 Mar, Left leg pain M79.605 [place] [address] 15757- 1121 06 Mar, 2017 Post-traumatic stress disorder, unspecified F43.10 ; Major depressive disorder, recurrent, moderate F33.1 and Problems related to release from half-way Z65.2 [place] [address] 23746- 5949 Feb, Left leg pain M79.605 [place] [address] 18461- 5887 Feb, [facility] [id number] [place] [address] 21973- 6417 Feb, BMI 40.0-44.9, adult Z68.41 ; Chronic pain syndrome G89.4 ; Migraine without aura and without status migrainosus, not intractable G43.009 ; Mitral valve prolapse I34.1 and 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 [place] [address] 34763- 3060 Feb, Post-traumatic stress disorder, chronic F43.12 ; Anxiety F41.9 ; Problems related to release from half-way Z65.2 and BMI 40.0-44.9, adult Z68.41 [place] [address] 57814- 6442 Feb, Post-traumatic stress disorder, unspecified F43.10 ; Major depressive disorder, recurrent, moderate F33.1 and Problems related to release from half-way Z65.2 [place] [id number] [place] [address] 23946- 3870 Feb, Left leg pain M79.605 [place] [address] 27860- 1144 Jan, Post-traumatic stress disorder, unspecified F43.10 ; Major depressive disorder, recurrent, moderate F33.1 and Problems related to release from half-way Z65.2 [place] [id number] [place] [address] 01548- 8859 Jan, [place] [id number] [place] [address] 35395- 4204 Jan, [place] [id number] [place] [address] 72994- 3279 Jan, Anxiety F41.9 [facility] [id number] [place] [address] 43463- 1296 Jan, Left leg pain M79.605 [place] [address] 65188- 8852 Dec, Left leg pain M79.605 [facility] [id number] [place] [address] 93539- 0423 Dec, [facility] [id number] [place] [address] 96313- 4541 Dec, Post-traumatic stress disorder, unspecified F43.10 ; Major depressive disorder, recurrent, moderate F33.1 and Problems related to release from half-way Z65.2 [facility] [id number] [place] [address] 24981- 9782 Nov, Chronic pain G89.29 and Anxiety F41.9 [place] [id number] [place] [address] 98537- 2649 Nov, Chronic pain G89.29 and Anxiety F41.9 [facility] [id number] [place] [address] 08661- 2129 16 Nov, 2016 Post-traumatic stress disorder, unspecified F43.10 ; Major depressive disorder, recurrent, moderate F33.1 and Problems related to release from half-way Z65.2 [facility] [id number] [place] [address] 03066- 6622 09 Nov, 2016 Other abnormal findings in specimens from other organs, systems and tissues R89.8 ; Other male erectile dysfunction N52.8 ; Body mass index (BMI) of 40.0-44.9 in adult Z68.41 and Morbid (severe) obesity due to excess calories E66.01 [facility] [id number] [place] [address] 11535- 4387 02 Nov, 2016 Post-traumatic stress disorder, unspecified F43.10 ; Major depressive disorder, recurrent, moderate F33.1 and Problems related to release from half-way Z65.2 [facility] [address] [place] [address] [id number] Oct, Dental examination Z01.20 [facility] [id number] [place] [address] 91611- 4222 Oct, [place] [address] [place] [address] 95342- 2421 28 Oct, 2016 Encounter for immunization Z23 [place] [address] 83705- 0566 Oct, Chronic pain G89.29 ; Anxiety F41.9 ; Arrhythmia as indication for cardiac pacemaker replacement I49.9 and Glaucoma H40.9 [place] [id number] [place] [address] 49933- 4522 Oct, Anxiety F41.9 ; Post-traumatic stress disorder, chronic F43.12 and Problems related to release from half-way Z65.2 [place] [id number] [place] [address] 77130- 5305 07 Oct, 2016 Post-traumatic stress disorder, unspecified F43.10 ; Major depressive disorder, recurrent, moderate F33.1 and Problems related to release from half-way Z65.2 [place] [id number] [place] [address] 12761- 2085 Sep, Chronic pain G89.29 and Anxiety F41.9 [place] [id number] [place] [address] 90051- 9736 Sep, Post-traumatic stress disorder, unspecified F43.10 ; Major depressive disorder, recurrent, moderate F33.1 and Problems related to release from half-way Z65.2 [place] [id number] [place] [address] 73553- 1409 Sep, Post-traumatic stress disorder, unspecified F43.10 ; Major depressive disorder, recurrent, moderate F33.1 and Problems related to release from half-way Z65.2 [place] [id number] [place] [address] 58080- 0545 Sep, Chronic pain G89.29 [place] [id number] [place] [address] 09025- 6097 Aug, Dental caries, unspecified K02.9 [place] [address] [place] [address] 35728- 7390 Aug, Sleep apnea, obstructive G47.33 ; Obesity E66.9 ; Chronic pain G89.29 ; HTN (hypertension) I10 ; Major depressive disorder, recurrent, moderate F33.1 ; Anxiety F41.9 ; Chronic tension headaches G44.229 ; Mitral valve prolapse I34.1 ; Arrhythmia as indication for cardiac pacemaker replacement I49.9 ; Dental caries, unspecified K02.9 ; Primary insomnia F51.01 and Hyperlipidemia E78.5 [place] [id number] [place] [address] 05562- 4997 Aug, Post-traumatic stress disorder, unspecified F43.10 ; Major depressive disorder, recurrent, moderate F33.1 and Problems related to release from half-way Z65.2 [place] [id number] [place] [address] 16473- 1633 Aug, Dental examination Z01.20 [facility] [address] [id number] Aug, Dental examination Z01.20 [facility] [id number] [place] [address] 57999- 7282 Aug, Post-traumatic stress disorder, unspecified F43.10 ; Major depressive disorder, recurrent, moderate F33.1 and Problems related to release from half-way Z65.2 [place] [id number] [place] [address] 28824- 5695 Aug, Chronic pain G89.29 and Primary insomnia F51.01 [facility] [id number] [place] [address] 26044- 0572 Jul, [facility] [id number] [place] [address] 18452- 8543 Jul, [place] [id number] [place] [address] 73197- 6310 Jul, Nausea R11.0 [facility] [id number] [place] [address] 36529- 2635 29 Abraham, 2017 Arrhythmia as indication for cardiac pacemaker replacement I49.9 [place] [address] [place] [address] 26846- 7804 13 Jul, 2016 Post-traumatic stress disorder, unspecified F43.10 ; Major depressive disorder, recurrent, moderate F33.1 and Problems related to release from half-way Z65.2 [place] [address] [place] [address] 96529- 5888 09 Jul, 2016 Anxiety F41.9 [place] [address] 56051- 6776 08 Jul, 2016 Chronic pain G89.[address] 56986- 1616 Jul, Sleep apnea, obstructive G47.33 ; Hyperlipidemia E78.5 ; Chronic pain G89.29 ; Blindness and low vision H54.10 ; Major depressive disorder, recurrent, moderate F33.1 ; Anxiety F41.9 ; Mitral valve prolapse I34.1 ; Arrhythmia as indication for cardiac pacemaker replacement I49.9 ; Primary insomnia F51.01 ; Bilateral headaches R51 and Environmental allergies Z91.09 [place] [id number] [place] [address] 05695- 3844 Jul, Post-traumatic stress disorder, unspecified F43.10 ; Major depressive disorder, recurrent, moderate F33.1 and Problems related to release from half-way Z65.2 [place] [id number] [place] [address] 44882- 4895 June, Post-traumatic stress disorder, chronic F43.12 ; Anxiety F41.9 ; Problems related to release from half-way Z65.2 ; Sleep apnea, obstructive G47.33 and Primary insomnia F51.01 [place] [id number] [place] [address] 37063- 6403 June, [place] [id number] [place] [address] 92614- 4904 June, [place] [id number] [place] [address] 85835- 9475 June, [place] [id number] [place] [address] 87191- 9692 June, Chronic pain G89.29 [place] [id number] [place] [address] 51073- 2645 June, Chronic pain G89.29 [place] [address] [place] [address] 63186- 2246 June, Lipoma of left lower extremity D17.24 ; Open wound T14.8 and Swelling of left lower extremity M79.89 [place] [id number] [place] [address] 90573- 9154 June, Post-traumatic stress disorder, unspecified F43.10 ; Major depressive disorder, recurrent, moderate F33.1 and Problems related to release from half-way Z65.2 [place] [id number] [place] [address] 15300- 4418 May, Lipoma of left lower extremity D17.24 ; Major depressive disorder, recurrent, moderate F33.1 ; Sleep apnea, obstructive G47.33 ; Hyperlipidemia E78.5 ; Obesity E66.9 ; HTN (hypertension) I10 ; Glaucoma H40.9 ; CAD (coronary artery disease) I25.10 ; Chronic tension headaches G44.229 ; Chronic pain G89.29 ; Anxiety F41.9 ; Nausea R11.0 and Primary insomnia F51.01 [place] [address] [place] [address] 74983- 7043 May, [place] [address] [place] [address] 71153- 3914 May, Chronic pain G89.29 [place] [id number] [place] [address] 37614- 2100 May, [place] [id number] [place] [address] 93246- 2694 Apr, Post-traumatic stress disorder, unspecified F43.10 ; Major depressive disorder, recurrent, moderate F33.1 and Problems related to release from half-way Z65.2 [place] [address] [address]- 5400 Apr, Primary insomnia F51.01 ; Post-traumatic stress disorder, chronic F43.12 and Problems related to release from half-way Z65.2 [place] [id number] [place] [address] 99331- 8982 17 Apr, 2016 Post-traumatic stress disorder, unspecified F43.10 ; Major depressive disorder, recurrent, moderate F33.1 and Problems related to release from half-way Z65.2 [place] [id number] [place] [address] 93457- 2583 16 Apr, 2016 [place] [id number] [place] [address] 69263- 9702 Apr, Sleep apnea, obstructive G47.33 ; Chronic pain G89.29 ; HTN (hypertension) I10 ; Mitral valve prolapse I34.1 ; Shoulder pain, left M25.512 ; Arrhythmia as indication for cardiac pacemaker replacement I49.9 ; Glaucoma H40.9 ; Bilateral headaches R51 ; Environmental allergies Z91.09 ; Primary insomnia F51.01 and Nausea R11.0 [place] [address] [place] [address] 21533- 7309 Apr, [place] [address] [place] [address] 94287- 0405 Apr, [place] [id number] [place] [address] 96684- 9389 Apr, Post-traumatic stress disorder, unspecified F43.10 ; Major depressive disorder, recurrent, moderate F33.1 and Problems related to release from half-way Z65.2 [place] [address] [place] [address] 14732- 5743 Apr, HTN (hypertension) I10 [place] [id number] [place] [address] 06248- 5763 Apr, HTN (hypertension) I10 [place] [address] [place] [address] 65420- 0800 14 Mar, 2016 Chronic pain G89.29 ; Primary insomnia F51.01 and Problems related to release from half-way Z65.2 [place] [id number] [place] [address] 98422- 8354 07 Mar, 2016 Post-traumatic stress disorder, unspecified F43.10 ; Major depressive disorder, recurrent, moderate F33.1 and Problems related to release from half-way Z65.2 [place] [id number] [place] [address] 00569- 6053 Feb, Post-traumatic stress disorder, unspecified F43.10 ; Major depressive disorder, recurrent, moderate F33.1 and Problems related to release from half-way Z65.2 [place] [address] [id number] [place] [address] [id number] [id number] Feb, Chronic tension headaches G44.229 [place] [id number] [place] [address] [phone]- [id number] Feb, Sleep apnea, obstructive G47.33 ; Obesity [...] pacemaker replacement I49.9 and Primary insomnia F51.01 [place] [id number] [place] [address] [id number] 17 Feb, 2016 Post-traumatic stress disorder, unspecified F43.10 and Chronic pain G89.29 [place] [address] [place] [address] [id number] [place] [address] [phone] Feb, [facility] [id number] [place] [address] [id number] Feb, Dental caries K02.9 [place] [address] [place] [id number] [place] [address] [id number] Feb, [address] [address] Feb, Post-traumatic stress disorder, unspecified F43.10 ; Major depressive disorder, recurrent, moderate F33.1 and Problems related to release from half-way Z65.[address] [address]- [address] Jan, Sleep apnea, obstructive G47.33 and Chronic pain G89.[address] [address]- 7579 Jan, [address] [address]- 5388 Jan, Dental examination Z01.[address] [address]- 3703 Jan, [place] [address] [address] 9911 Jan, [address] [address]83- 3234 Dec, Post-traumatic stress disorder, unspecified F43.10 ; Major depressive disorder, recurrent, moderate F33.1 and Problems related to release from half-way Z65.[address] [address]- 6188 Dec, Encounter for immunization Z23 ; Problems related to release from half-way Z65.2 ; Sleep apnea, obstructive G47.33 and Post-traumatic stress disorder, chronic F43.[address] 35946- 2291 Dec, Sleep apnea, obstructive G47.33 ; Hyperlipidemia E78.5 ; Chronic pain G89.29 ; Glaucoma H40.9 ; HTN (hypertension) I10 ; Post-traumatic stress disorder, unspecified F43.10 ; Anxiety F41.9 ; Chronic tension headaches G44.229 ; Mitral valve prolapse I34.1 and CAD (coronary artery disease) I25.10 [place] [address] [place] [id number] [place] [address] 44068- 1033 Dec, Post-traumatic stress disorder, unspecified F43.10 ; Major depressive disorder, recurrent, moderate F33.1 and Problems related to release from half-way Z65.2 [place] [address] [place] [id number] [place] [address] 80884- 0316 Nov, Chronic pain G89.29 [place] [address] 05273- 5599 Nov, Post-traumatic stress disorder, unspecified F43.10 ; Major depressive disorder, recurrent, moderate F33.1 and Problems related to release from half-way Z65.2 [place] [address] [place] [id number] [place] [address] 45516- 6707 Oct, [place] [address] 68000- 1542 Oct, [place] [address] [place] [id number] [place] [address] 49771- 9523 16 Oct, 2015 Post-traumatic stress disorder, unspecified F43.10 ; Major depressive disorder, recurrent, moderate F33.1 and Problems related to release from half-way Z65.2 [place] [address] [place] [id number] [place] [address] 10975- 0600 08 Oct, 2015 [place] [address] [place] [id number] [place] [address] 79288- 0108 07 Oct, 2015 Environmental allergies Z91.09 ; Cough R05 and Open-angle glaucoma of both eyes H40.10X0 [place] [address] 25894- 1661 Sep, [place] [address] [place] [id number] [place] [address] 69739- 8688 Sep, Post-traumatic stress disorder, unspecified F43.10 ; Major depressive disorder, recurrent, moderate F33.1 and Problems related to release from half-way Z65.2 [place] [id number] [place] [address] 45980- 2012 Sep, Chronic pain G89.29 [place] [address] [place] [id number] [place] [address] 03667- 3521 Sep, Pain in left shoulder M25.512 ; Pain in right shoulder M25.511 and Other chronic pain G89.29 [place] [address] [place] [id number] [place] [address] 23728- 2379 Sep, [place] [address] [place] [id number] [place] [address] 68732- 4249 Sep, [place] [address] [place] [id number] [place] [address] 09727- 3958 Sep, [facility] [id number] [place] [address] [id number] Aug, Dental examination Z01.20 [place] [address] [place] [id number] [place] [address] 74383- 4233 Aug, Post-traumatic stress disorder, unspecified F43.10 ; Open- angle glaucoma of both eyes H40.10X0 and Problems related to release from half-way Z65.2 [place] [id number] [place] [address] 22979- 5095 Aug, [place] [address] [place] [id number] [place] [address] 52127- 7166 Aug, Sleep apnea, obstructive G47.33 ; Obesity E66.9 ; Hyperlipidemia E78.5 ; Bilateral headaches R51 ; HTN (hypertension) I10 ; Post- traumatic stress disorder, unspecified F43.10 ; Anxiety F41.9 ; Neuropathy G62.9 ; Glaucoma H40.9 and Chronic pain G89.29 [facility] [id number] [place] [address] [id number] Aug, Encounter for dental examination Z01.20 [place] [address] [place] [id number] [place] [address] 10894- 5662 Aug, Post-traumatic stress disorder, unspecified F43.10 ; Major depressive disorder, recurrent, moderate F33.1 and Problems related to release from half-way Z65.2 [facility] [address] [address] Aug, [facility] [address] [address] 9120 Jul, [facility] [address] [place] [id number] [place] [address] 84084- 7728 Jul, Post-traumatic stress disorder, unspecified F43.10 and Major depressive disorder, recurrent, moderate F33.1 [facility] [address] [place] [id number] [place] [address] 51728- 0436 Jul, [facility] [address] [place] [id number] [place] [address] 31758- 2931 Jul, [facility] [address] [place] [id number] [place] [address] 27587- 8156 Jul, Chronic pain G89.29 [facility] [address] [place] [id number] [place] [address] 56426- 4517 June, Post-traumatic stress disorder, unspecified F43.10 and Major depressive disorder, recurrent, moderate F33.1 [facility] [address], [place] [address] 7[address] June, [facility] [id number] [place] [address] 37233- 7996 June, Chronic pain G89.29 [facility] [id number] [place] [address] 35584- 5376 June, Post-traumatic stress disorder, unspecified F43.10 and Major depressive disorder, recurrent, moderate F33.1 [facility] [address], [place] [address]- 6416 May, Post-traumatic stress disorder, unspecified F43.10 and Major depressive disorder, recurrent, moderate F33.1 [facility] [address], [place] [address]- 1485 15 May, 2015 [facility] [address] [place] [id number] [place] [address] 01602- 8281 08 May, 2015 [facility] [address], [place] [address]- 3862 May, [facility] [address] [place] [id number] [place] [address] 97839- 9373 Apr, [facility] [address] [place] [id number] [place] [address] 70934- 3836 Apr, Post-traumatic stress disorder, unspecified F43.10 and Sleep apnea, obstructive G47.33 [facility] [id number] [place] [address] 91426- 6493 Apr, [facility] [address] [place] [id number] [place] [address] 33751- 3835 Apr, Shoulder pain, left M25.512 [facility] [address] [place] [id number] [place] [address] 01154- 6260 Apr, Post-traumatic stress disorder, unspecified F43.10 and Major depressive disorder, recurrent, moderate F33.1 [facility] [address], [place] [address]- 9973 17 Apr, 2015 [facility] [id number] [place] [address] 02197- 4238 Apr, [facility] [address], [place] [address]- 9208 Apr, [facility] [address] [place] [id number] [place] [address] 52590- 1821 07 Apr, 2015 Left shoulder pain M25.512 [facility] [address], [place] [address]- 3812 Mar, [facility] [address] [place] [id number] [place] [address] 60007- 7612 Mar, [place] [address] [place] [id number] [place] [address] 16847- 0897 Mar, [place] [address] [place] [id number] [place] [address] Mar, Sleep apnea, obstructive G47.33 ; Obesity E66.9 ; Chronic pain G89.29 ; Hyperlipidemia E78.5 ; HTN (hypertension) I10 ; Blindness and low vision H54.10 ; Major depressive disorder, recurrent, moderate F33.1 and Anxiety F41.9 [place] [address] [place] [id number] [place] [address] 77670- 0783 Mar, [place] [address] [place] [id number] [place] [address] 08263- 9647 Mar, Post-traumatic stress disorder, unspecified F43.10 and Major depressive disorder, recurrent, moderate F33.1 [place] [address] [place] [id number] [place] [address] 45256- 8061 Mar, [place] [address] [place] [id number] [place] [address] 43186- 5161 Mar, HTN (hypertension) I10 ; Blindness and low vision H54.10 ; Obesity E66.9 ; Hyperlipidemia E78.5 ; Glaucoma H40.9 ; Chronic pain G89.29 and CAD (coronary artery disease) I25.10 [place] [address] [place] [id number] [place] [address] 27243- 8978 Feb, [place] [address] [place] [id number] [place] [address] 66743- 0800 Feb, Post-traumatic stress disorder, unspecified F43.10 ; Obesity E66.9 ; Sleep apnea, obstructive G47.33 and Open-angle glaucoma of both eyes H40.10X0 [place] [address] [place] [id number] [place] [address] 99317- 5617 Feb, Post-traumatic stress disorder, unspecified F43.10 and Major depressive disorder, recurrent, moderate F33.1 [place] [address] [place] [id number] [place] [address] 64807- 4234 Feb, [place] [address] 11806- 0763 Feb, [place] [address] [place] [id number] [place] [address] 39440- 4031 Feb, HTN (hypertension) I10 ; Post-traumatic stress disorder, unspecified F43.10 ; Blindness and low vision H54.10 ; Obesity E66.9 ; Hyperlipidemia E78.5 ; Chronic pain G89.29 ; Glaucoma H40.9 ; Mitral valve prolapse I34.1 and Bilateral headaches R51 [place] [address] 98486- 9546 Feb, [place] [address] [place] [id number] [place] [address] 40921- 6965 Feb, Post-traumatic stress disorder, unspecified F43.10 and Major depressive disorder, recurrent, moderate F33.1 [place] [address] [place] [id number] [place] [address] 22783- 3135 Feb, [place] [address] 38238- 9775 Feb, [place] [address] [place] [id number] [place] [address] 04079- 2380 Jan, [place] [address] [place] [id number] [place] [address] 81471- 6127 Jan, [place] [address] [place] [id number] [place] [address] 60550- 2761 Jan, Obesity E66.9 ; HTN (hypertension) I10 ; Blindness and low vision H54.10 ; Major depressive disorder, recurrent, moderate F33.1 ; Glaucoma H40.9 ; Hyperlipidemia E78.5 ; Sleep apnea, obstructive G47.33 ; Chronic pain G89.29 ; Anxiety F41.9 ; Chronic tension headaches G44.229 and Cough R05 [place] [address] [place] [id number] [place] [address] 02777- 1409 Jan, [facility] [address] [place] [id number] [place] [address] 49800- 5632 Jan, [facility] [address] [place] [id number] [place] [address] 54236- 0429 Jan, Post-traumatic stress disorder, unspecified F43.10 ; Obesity E66.9 ; Sleep apnea, obstructive G47.33 and Open-angle glaucoma of both eyes H40.10X0 [facility] [address] [place] [id number] [place] [address] 94445- 4340 Jan, [place] [address] [place] [id number] [place] [address] 39564- 5211 Jan, Post-traumatic stress disorder, unspecified F43.10 and Major depressive disorder, recurrent, moderate F33.1 [place] [address] [place] [id number] [place] [address] 20038- 1502 Dec, [place] [address] [place] [id number] [place] [address] 27230- 4750 Dec, Sleep apnea, obstructive G47.33 ; Obesity E66.9 ; Hyperlipidemia E78.5 ; Glaucoma H40.9 ; Chronic pain G89.29 ; HTN (hypertension ) I10 ; Blindness and low vision H54.10 ; Anxiety F41.9 and CAD (coronary artery disease) I25.10 [place] [address] [place] [id number] [place] [address] 61022- 1229 Nov, [place] [address] [place] [id number] [place] [address] 14469- 0201 Nov, [facility] [address] [place] [id number] [place] [address] 28658- 5906 Nov, [facility] [id number] [place] [address] 76003- 0696 Nov, [place] [address] [place] [id number] [place] [address] 34913- 8999 Nov, [facility] [address] [place] [id number] [place] [address] 78725- 0201 Nov, Encounter for immunization Z23 ; Sleep apnea, obstructive G47.33 ; Obesity E66.9 ; Hyperlipidemia E78.5 ; Glaucoma H40.9 ; Chronic pain G89.29 ; Anxiety F41.9 ; Chronic tension headaches G44.229 and HTN (hypertension ) I10 [facility] [address] 95136- 7837 Nov, [facility] [address] 89443- 7097 Nov, [facility] [address] 31752- 0512 Nov, Dizziness R42 [facility] [address] 80254- 5849 Nov, [facility] [address] 73751- 4901 Oct, [facility] [address] 62952- 1493 Oct, [facility] [address] 09036- 1347 Oct, [facility] [address] [id number] [place] [address] 87438- 4255 Oct, [facility] [address] 50349- 2989 Oct, Dizziness 780.4 ; Essential hypertension 401.9 ; Obesity 278.00 ; Hyperlipidemia 272.4 ; Chronic pain 338.29 ; Glaucoma 365.9 and Anxiety 300.00 [facility] [address] [place] [id number] [place] [address] 40252- 2138 Oct, Essential hypertension 401.9 ; Hyperlipidemia 272.4 ; Glaucoma 365.9 ; Obesity 278.00 ; Chronic pain 338.29 and Allergy to insects V15.06 [facility] [id number] [address]- 4022 Sep, [facility] [address] [facility] [id number] [place] [address]- 9922 Sep, [facility] [address] [facility] [id number] [place] [address]- 8679 Sep, [facility] [address] [facility] [id number] [address]- 2751 Sep, [facility] [address] [facility] [id number], [place] [address]- 5104 Aug, Essential hypertension 401.9 ; Obesity 278.00 [...] Result Body Site LAB NOT BILLED BY [facility] September 07, 2017 INSTRUCTIONS MEDICATIONS ADMINISTERED No Known Medications [...]
--- OUTSIDE RECORDS SUMMARY | 2018-02-04 14:30 | XMS REPORT ---
Author Author ALENA ÁLVAREZ [facility] Address [address] [place] [address] Care Team Providers Care Administrative Services Manager Name Role Phone ALENA ÁLVAREZ Unavailable PROBLEMS Type Condition ICD9-CM Code DZA95-EO Code Onset Dates Condition Status SNOMED Code Problem Hyperlipidemia E78.5 Active 51754454 Problem Arrhythmia as indication for cardiac pacemaker replacement I49.9 Active 08384393 Problem Sleep apnea, obstructive G47.33 Active 82149649 Problem Primary insomnia F51.01 Active 4911226 Problem Chronic pain G89.29 Active 84705609 Problem Morbid (severe) obesity due to excess calories E66.01 Active 830327918 Problem Body mass index (BMI) of 40.0-44.9 in adult Z68.41 Active 161279220 Problem Other male erectile dysfunction N52.8 Active 097046685 Problem Supraventricular tachycardia I47.1 Active 0251621 Problem Sarcoidosis D86.9 Active 04365940 Problem HTN (hypertension) I10 Active 14330418 Problem Blindness and low vision H54.10 Active 382513791 Problem Myocarditis, unspecified chronicity, 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 Active 95917957 Problem Migraine without aura and without status migrainosus, not intractable G43.009 Active 236620617 Problem 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 Active 551693478 Problem Problems related to release from detention Z65.2 Active 625566459746646 Problem Chronic pain syndrome G89.4 Active 321863431 Problem Major depressive disorder, recurrent, moderate F33.1 Active 23282613 Problem Open-angle glaucoma of both eyes H40.10X0 Active 73085326 Problem Chronic tension headaches G44.229 Active 282602644 Problem Anxiety F41.9 Active 84019658 Problem Post-traumatic stress disorder, chronic F43.12 Active 118443388 Problem Environmental allergies Z91.09 Active 693381074 Problem Mitral valve prolapse I34.1 Active 731052018 Problem CAD (coronary artery disease) I25.10 Active 21503853 ALLERGIES Substance Reaction Event Type Date Status Xalatan upper lid irritation Drug Allergy Aug, Active Penicillin G Potassium rash Drug Allergy Aug, Active Lisinopril cough Drug Allergy Aug, Active Aspirin nausea and vomiting Drug Allergy Aug, Active bandaides blisters Non Drug Allergy Aug, Active Wasp venom anaphylaxis Non Drug Allergy Aug, Active ENCOUNTERS Encounter Location Date Diagnosis [place] [address] [address] Nov, [place] [address] 49166- 9795 Oct, [place] [address] 20142- 8567 Oct, [place] [address] 95529- 2870 Oct, Left leg pain M79.605 [place] [address] 00649- 8468 04 Oct, 2017 Post-traumatic stress disorder, unspecified F43.10 ; Major depressive disorder, recurrent, moderate F33.1 and Problems related to release from detention Z65.2 [place] [address] [place] [id number] [place] [address] 16181- 2872 Sep, Arrhythmia as indication for cardiac pacemaker replacement I49.9 [place] [id number] [place] [address] 86974- 8415 Sep, [place] [address] [place] [id number] [place] [address] 85437- 5305 Sep, HTN (hypertension) I10 [place] [address] 81573- 6380 Sep, [place] [address] [place] [id number] [place] [address] 28498- 0164 Sep, Body mass index (BMI) of 40.0-44.9 in adult Z68.41 ; Chronic pain G89.29 and Supraventricular tachycardia I47.1 [facility] [address] [place] [id number] [place] [address] 33865- 1408 Sep, [facility] [address] 87018- 3846 Sep, Sarcoidosis D86.9 [facility] [address] 60683- 2804 Sep, Sarcoidosis D86.9 [facility] [address] 61037- 2199 Sep, [facility] [address] 02638- 1417 Sep, [facility] [address] 63634- 8037 Sep, [facility] [address] 75567- 6668 Sep, [facility] [address] 27515- 0911 Sep, Left leg pain M79.605 [facility] [address] 73512- 8398 Sep, HTN (hypertension) I10 [facility] [address] [place] [id number] [place] [address] 72103- 2932 Sep, [facility] [address] [place] [id number] [place] [address] 57728- 0072 Sep, Post-traumatic stress disorder, unspecified F43.10 ; Major depressive disorder, recurrent, moderate F33.1 and Problems related to release from detention Z65.2 [facility] [address] [place] [id number] [place] [address] 36155- 7449 Sep, [facility] [address] [place] [id number] [place] [address] 40528- 8474 Aug, [facility] [address] 96768- 4333 Aug, Sarcoidosis D86.9 [place] [address] [place] [id number] [place] [address] 11521- 9546 Aug, Sarcoidosis D86.9 [place] [address] [place] [id number] [place] [address] 47541- 9655 Aug, HTN (hypertension) I10 [place] [address] 60147- 3744 Aug, Post-traumatic stress disorder, unspecified F43.10 ; Major depressive disorder, recurrent, moderate F33.1 and Problems related to release from detention Z65.2 [place] [address] 54207- 7060 11 Aug, 2017 [place] [address] [place] [id number] [place] [address] 52095- 8418 Aug, Left leg pain M79.605 [place] [address] [place] [id number] [place] [address] 50035- 2994 Jul, Post-traumatic stress disorder, chronic F43.12 ; Anxiety F41.9 ; Problems related to release from detention Z65.2 and BMI 40.0-44.9, adult Z68.41 [place] [address] [place] [id number] [place] [address] 48319- 9622 20 Jul, 2017 HTN (hypertension) I10 ; Body mass index (BMI) of 40.0-44.9 in adult Z68.41 ; Acute swimmer''s ear of both sides H60.333 and Chronic pain G89.29 [place] [address] [place] [id number] [place] [address] 79867- 7696 Jul, Glaucoma H40.9 [place] [address] [place] [id number] [place] [address] 06791- 1311 14 Jul, 2017 [place] [address] [place] [id number] [place] [address] 97793- 9281 13 Jul, 2017 Sarcoidosis D86.9 [place] [address] [place] [id number] [place] [address] 34670- 1646 Jul, Left leg pain M79.605 [facility] [address] [place] [id number] [place] [address] 71887- 7966 Jul, Sarcoidosis D86.9 [facility] [address] [place] [id number] [place] [address] 60601- 4797 Jul, Post-traumatic stress disorder, unspecified F43.10 ; Major depressive disorder, recurrent, moderate F33.1 and Problems related to release from detention Z65.2 [facility] [address] [place] [id number] [place] [address] 29169- 7588 June, [facility] [address] [place] [id number] [place] [address] 13673 -0376 June, Sore throat J02.9 and BMI 40.0-44.9, adult Z68.41 [facility] [address] [place] [id number] [place] [address] 45384- 6107 June, [facility] [address] [place] [id number] [place] [address] 90888- 5054 June, [facility] [address] [place] [id number] [place] [address] 65281- 2690 June, [facility] [address] [place] [id number] [place] [address] 16530- 4714 June, Left leg pain M79.605 [facility] [address] [place] [id number] [place] [address] 09621- 7825 June, Sarcoidosis D86.9 [facility] [address] [place] [id number] [place] [address] 88277- 6222 June, [facility] [address] [place] [id number] [place] [address] 01394- 3783 June, [facility] [address] [place] [id number] [place] [address] 06315- 8840 June, Left leg pain M79.605 [facility] [address] [place] [address] 19533- 4615 May, [facility] [address] [place] [id number] [place] [address] 57112- 6789 May, [facility] [address] [place] [id number] [place] [address] 64004- 0873 May, [facility] [address] [place] [id number] [place] [address] 29818- 8022 May, Left leg pain M79.605 [facility] [address] [place] [id number] [place] [address] 90107- 2931 May, Post-traumatic stress disorder, unspecified F43.10 ; Major depressive disorder, recurrent, moderate F33.1 and Problems related to release from detention Z65.2 [place] [address] [place] [id number] [place] [address] 46934- 9153 May, Chronic pain G89.29 ; Anxiety F41.9 ; Chest pain, unspecified type R07.9 and BMI 40.0-44.9, adult Z68.41 [facility] [address] [place] [id number] [place] [address] 42167- 0194 Apr, [facility] [address] [place] [address] 79966- 9293 Apr, Left leg pain M79.605 [facility] [address] [place] [id number] [place] [address] 59760- 1863 Apr, Post-traumatic stress disorder, unspecified F43.10 ; Problems related to release from detention Z65.2 ; Anxiety F41.9 and BMI 40.0-44.9 , adult Z68.41 [facility] [address] [place] [id number] [place] [address] 74726- 1350 Apr, [facility] [address] [place] [id number] [place] [address] 69241- 0820 Apr, Left leg pain M79.605 [facility] [address] 59420- 5373 13 Apr, 2017 Post-traumatic stress disorder, unspecified F43.10 ; Major depressive disorder, recurrent, moderate F33.1 and Problems related to release from detention Z65.2 [place] [address] 16743- 7369 12 Apr, 2017 [place] [address] 64721- 4514 12 Apr, 2017 Chronic pain G89.29 ; 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 ; Morbid (severe) obesity due to excess calories E66.01 ; Anxiety F41.9 and BMI 40.0-44.9, adult Z68.41 [facility] [place] [address] 72214 -2576 10 Apr, 2017 Sore throat J02.9 and BMI 40.0-44.9, adult Z68.[address] 48078- 9056 02 Apr, 2017 Left leg pain M79.605 [facility] [address] [id number] 28 Mar, 2017 Dental examination Z01.20 [place] [address] 14829- 1554 23 Mar, 2017 [facility] [address] 56034 -3977 20 Mar, 2017 Cough R05 ; Viral gastroenteritis A08.4 and BMI 40.0-44.9, adult Z68.[address] 41707- 1916 19 Mar, 2017 Left leg pain M79.605 [place] [address] 70730- 1897 06 Mar, 2017 Post-traumatic stress disorder, unspecified F43.10 ; Major depressive disorder, recurrent, moderate F33.1 and Problems related to release from detention Z65.2 [facility] [address] [address]- 5730 Feb, Left leg pain M79.605 [facility] [address] [place] [address] 04798- 7885 Feb, [facility] [address] [place] [id number] [place] [address] 35149- 7819 Feb, BMI 40.0-44.9, adult Z68.41 ; Chronic pain syndrome G89.4 ; Migraine without aura and without status migrainosus, not intractable G43.009 ; Mitral valve prolapse I34.1 and 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 [place] [address] [place] [id number] [place] [address] 51156- 6841 Feb, Post-traumatic stress disorder, chronic F43.12 ; Anxiety F41.9 ; Problems related to release from detention Z65.2 and BMI 40.0-44.9, adult Z68.41 [place] [address] [place] [address] 63535- 5744 Feb, Post-traumatic stress disorder, unspecified F43.10 ; Major depressive disorder, recurrent, moderate F33.1 and Problems related to release from detention Z65.2 [place] [address] [address]- 4490 Feb, Left leg pain M79.605 [place] [address] [place] [address] 76652- 5207 Jan, Post-traumatic stress disorder, unspecified F43.10 ; Major depressive disorder, recurrent, moderate F33.1 and Problems related to release from detention Z65.2 [place] [address] [address]- 7786 Jan, [place] [address] [address]- 5875 Jan, [place] [address] [place] [id number] [place] [address] 47060- 4553 Jan, Anxiety F41.9 [place] [address] [address]- 7490 Jan, Left leg pain M79.605 [facility] [address] [address]- 8778 Dec, Left leg pain M79.605 [place] [address] [place] [address] 06918- 5895 Dec, [place] [address] [place] [address] 46556- 7291 Dec, Post-traumatic stress disorder, unspecified F43.10 ; Major depressive disorder, recurrent, moderate F33.1 and Problems related to release from detention Z65.2 [place] [address] [place] [address] 92239- 3849 31 Nov, 2016 Chronic pain G89.29 and Anxiety F41.9 [place] [address] [place] [address] 87697- 0985 24 Nov, 2016 Chronic pain G89.29 and Anxiety F41.9 [place] [address] [place] [id number] [place] [address] 08629- 9169 16 Nov, 2016 Post-traumatic stress disorder, unspecified F43.10 ; Major depressive disorder, recurrent, moderate F33.1 and Problems related to release from detention Z65.2 [place] [address] [address]- 4299 09 Nov, 2016 Other abnormal findings in specimens from other organs, systems and tissues R89.8 ; Other male erectile dysfunction N52.8 ; Body mass index (BMI) of 40.0-44.9 in adult Z68.41 and Morbid (severe) obesity due to excess calories E66.01 [place] [address] [address]- 6538 02 Nov, 2016 Post-traumatic stress disorder, unspecified F43.10 ; Major depressive disorder, recurrent, moderate F33.1 and Problems related to release from detention Z65.2 [facility] [address] [place] [address] [address] 29 Oct, 2016 Dental examination Z01.20 [place] [address] [place] [id number] [place] [address] 95624- 8043 28 Oct, 2016 [place] [address] [place] [address] 27426- 2068 Oct, Encounter for immunization Z23 [place] [address] [place] [id number] [place] [address] 99095- 7948 Oct, Chronic pain G89.29 ; Anxiety F41.9 ; Arrhythmia as indication for cardiac pacemaker replacement I49.9 and Glaucoma H40.9 [place] [address] [place] [address] 93785- 8251 Oct, Anxiety F41.9 ; Post-traumatic stress disorder, chronic F43.12 and Problems related to release from detention Z65.2 [place] [address] [place] [address] 54481- 7859 07 Oct, 2016 Post-traumatic stress disorder, unspecified F43.10 ; Major depressive disorder, recurrent, moderate F33.1 and Problems related to release from detention Z65.2 [place] [address] [place] [address] 66346- 3282 Sep, Chronic pain G89.29 and Anxiety F41.9 [place] [address] [place] [address] 15817- 0095 Sep, Post-traumatic stress disorder, unspecified F43.10 ; Major depressive disorder, recurrent, moderate F33.1 and Problems related to release from detention Z65.2 [place] [address] [place] [address] 48854- 9794 Sep, Post-traumatic stress disorder, unspecified F43.10 ; Major depressive disorder, recurrent, moderate F33.1 and Problems related to release from detention Z65.2 [place] [address] [place] [address] 97109- 8190 Sep, Chronic pain G89.29 [facility] [address] [place] [id number] [place] [address] 04275- 7533 Aug, Dental caries, unspecified K02.9 [facility] [address] [place] [id number] [place] [address] 40141- 2133 Aug, Sleep apnea, obstructive G47.33 ; Obesity E66.9 ; Chronic pain G89.29 ; HTN (hypertension) I10 ; Major depressive disorder, recurrent, moderate F33.1 ; Anxiety F41.9 ; Chronic tension headaches G44.229 ; Mitral valve prolapse I34.1 ; Arrhythmia as indication for cardiac pacemaker replacement I49.9 ; Dental caries, unspecified K02.9 ; Primary insomnia F51.01 and Hyperlipidemia E78.5 [place] [address] [place] [id number] [place] [address] 38744- 0756 Aug, Post-traumatic stress disorder, unspecified F43.10 ; Major depressive disorder, recurrent, moderate F33.1 and Problems related to release from detention Z65.2 [facility] [address] [place] [id number] [place] [address] 72465- 8839 Aug, Dental examination Z01.20 [facility] [address] [place] [address] [id number] Aug, Dental examination Z01.20 [facility] [address] [place] [id number] [place] [address] 39403- 1600 Aug, Post-traumatic stress disorder, unspecified F43.10 ; Major depressive disorder, recurrent, moderate F33.1 and Problems related to release from detention Z65.2 [facility] [address] [place] [address] 67376- 7023 Aug, Chronic pain G89.29 and Primary insomnia F51.01 [facility] [address] [place] [id number] [place] [address] 02834- 1119 Jul, [facility] [address] [place] [id number] [place] [address] 02523- 9973 Jul, [place] [address] [place] [address] 70620- 5329 Jul, Nausea R11.0 [place] [address] [place] [id number] [place] [address] 41109- 5274 Jul, Arrhythmia as indication for cardiac pacemaker replacement I49.9 [place] [address] [place] [id number] [place] [address] 40339- 1257 Jul, Post-traumatic stress disorder, unspecified F43.10 ; Major depressive disorder, recurrent, moderate F33.1 and Problems related to release from detention Z65.[address] 33745- 1547 Jul, Anxiety F41.9 [place] [id number] [place] [address] 80099- 2617 08 Jul, 2016 Chronic pain G89.29 [place] [id number] [place] [address] 44866- 7799 Jul, Sleep apnea, obstructive G47.33 ; Hyperlipidemia E78.5 ; Chronic pain G89.29 ; Blindness and low vision H54.10 ; Major depressive disorder, recurrent, moderate F33.1 ; Anxiety F41.9 ; Mitral valve prolapse I34.1 ; Arrhythmia as indication for cardiac pacemaker replacement I49.9 ; Primary insomnia F51.01 ; Bilateral headaches R51 and Environmental allergies Z91.09 [place] [id number] [place] [address] 36901- 0448 Jul, Post-traumatic stress disorder, unspecified F43.10 ; Major depressive disorder, recurrent, moderate F33.1 and Problems related to release from detention Z65.2 [place] [id number] [place] [address] 63316- 0149 June, Post-traumatic stress disorder, chronic F43.12 ; Anxiety F41.9 ; Problems related to release from detention Z65.2 ; Sleep apnea, obstructive G47.33 and Primary insomnia F51.[address] [place] [address]- 6440 June, [place] [address] [address]- 5536 June, [place] [address] [place] [id number] [place] [address] 74732- 1251 June, [place] [address] [place] [id number] [place] [address] 78481- 0659 June, Chronic pain G89.29 [place] [address] [place] [id number] [place] [address] 81198- 1995 June, Chronic pain G89.29 [place] [address] [place] [id number] [place] [address] 97176- 2961 June, Lipoma of left lower extremity D17.24 ; Open wound T14.8 and Swelling of left lower extremity M79.89 [place] [id number] [place] [address] 83822- 6779 June, Post-traumatic stress disorder, unspecified F43.10 ; Major depressive disorder, recurrent, moderate F33.1 and Problems related to release from detention Z65.2 [place] [address] [place] [address] 18592- 1981 May, Lipoma of left lower extremity D17.24 ; Major depressive disorder, recurrent, moderate F33.1 ; Sleep apnea, obstructive G47.33 ; Hyperlipidemia E78.5 ; Obesity E66.9 ; HTN (hypertension) I10 ; Glaucoma H40.9 ; CAD (coronary artery disease) I25.10 ; Chronic tension headaches G44.229 ; Chronic pain G89.29 ; Anxiety F41.9 ; Nausea R11.0 and Primary insomnia F51.01 [place] [address] [address]- 1358 May, [place] [address] [place] [address] 53394- 3213 May, Chronic pain G89.29 [place] [address] [place] [address] [address]- 4974 May, [place] [address] [place] [id number] [place] [address] 11835- 2202 Apr, Post-traumatic stress disorder, unspecified F43.10 ; Major depressive disorder, recurrent, moderate F33.1 and Problems related to release from detention Z65.2 [place] [address] [place] [id number] [place] [address] 19161- 3363 Apr, Primary insomnia F51.01 ; Post-traumatic stress disorder, chronic F43.12 and Problems related to release from detention Z65.2 [place] [address] [place] [id number] [place] [address] 25065- 2867 Apr, Post-traumatic stress disorder, unspecified F43.10 ; Major depressive disorder, recurrent, moderate F33.1 and Problems related to release from detention Z65.2 [place] [address] [place] [id number] [place] [address] 01385- 8674 Apr, [place] [address] [place] [id number] [place] [address] 81078- 4248 Apr, Sleep apnea, obstructive G47.33 ; Chronic pain G89.29 ; HTN (hypertension) I10 ; Mitral valve prolapse I34.1 ; Shoulder pain, left M25.512 ; Arrhythmia as indication for cardiac pacemaker replacement I49.9 ; Glaucoma H40.9 ; Bilateral headaches R51 ; Environmental allergies Z91.09 ; Primary insomnia F51.01 and Nausea R11.0 [place] [address] [place] [address] 07363- 8040 Apr, [place] [address] [place] [id number] [place] [address] 22751- 8748 Apr, [place] [address] [place] [id number] [place] [address] 33103- 4633 Apr, Post-traumatic stress disorder, unspecified F43.10 ; Major depressive disorder, recurrent, moderate F33.1 and Problems related to release from detention Z65.2 [place] [address], [place] [address]- 7457 Apr, HTN (hypertension) I10 [place] [address] [place] [id number] [place] [address] 84720- 8288 Apr, HTN (hypertension) I10 [place] [address] [place] [address] 01853- 9548 14 Mar, 2016 Chronic pain G89.29 ; Primary insomnia F51.01 and Problems related to release from detention Z65.2 [place] [address] [place] [id number] [place] [address] 98055- 9833 07 Mar, 2016 Post-traumatic stress disorder, unspecified F43.10 ; Major depressive disorder, recurrent, moderate F33.1 and Problems related to release from detention Z65.2 [place] [id number] [place] [address] 01343- 6613 Feb, Post-traumatic stress disorder, unspecified F43.10 ; Major depressive disorder, recurrent, moderate F33.1 and Problems related to release from detention Z65.2 [place] [address] [place] [address] 65318- 8358 Feb, Chronic tension headaches G44.229 [place] [address] [place] [address] 84393- 0460 Feb, Sleep apnea, obstructive G47.33 ; Obesity [...] pacemaker replacement I49.9 and Primary insomnia F51.01 [place] [address] [place] [address] 25579- 1085 Feb, Post-traumatic stress disorder, unspecified F43.10 and Chronic pain G89.29 [place] [address] [address] 1384 13 Feb, 2016 [facility] [address] [place] [address] [id number] Feb, Dental caries K02.9 [facility] [id number] [place] [address] 42090- 0025 Feb, [place] [id number] [place] [address] 80204- 6955 Feb, Post-traumatic stress disorder, unspecified F43.10 ; Major depressive disorder, recurrent, moderate F33.1 and Problems related to release from detention Z65.2 [place] [id number] [place] [address] 52376- 3985 Jan, Sleep apnea, obstructive G47.33 and Chronic pain G89.29 [place] [id number] [place] [address] 33287- 2722 Jan, [place] [id number] [place] [address] 02231- 1288 14 Jan, 2016 Dental examination Z01.20 [place] [id number] [place] [address] 10276- 8627 Jan, [place] [id number] [place] [address] 98198- 4822 Jan, [place] [id number] [place] [address] 73702- 7511 Dec, Post-traumatic stress disorder, unspecified F43.10 ; Major depressive disorder, recurrent, moderate F33.1 and Problems related to release from detention Z65.2 [place] [address] [place] [address] 46385- 4530 Dec, Encounter for immunization Z23 ; Problems related to release from detention Z65.2 ; Sleep apnea, obstructive G47.33 and Post-traumatic stress disorder, chronic F43.12 [place] [id number] [place] [address] 43233- 0129 Dec, Sleep apnea, obstructive G47.33 ; Hyperlipidemia E78.5 ; Chronic pain G89.29 ; Glaucoma H40.9 ; HTN (hypertension) I10 ; Post-traumatic stress disorder, unspecified F43.10 ; Anxiety F41.9 ; Chronic tension headaches G44.229 ; Mitral valve prolapse I34.1 and CAD (coronary artery disease) I25.10 [place] [address] [place] [id number]- 5383 Dec, Post-traumatic stress disorder, unspecified F43.10 ; Major depressive disorder, recurrent, moderate F33.1 and Problems related to release from detention Z65.2 [place] [address] [place] [id number]- 4722 Nov, Chronic pain G89.[address] 09204- 1519 Nov, Post-traumatic stress disorder, unspecified F43.10 ; Major depressive disorder, recurrent, moderate F33.1 and Problems related to release from detention Z65.2 [place] [address] 35275- 9621 Oct, [place] [address] [place] [id number]- 0767 23 Oct, 2015 [place] [id number] [place] [address] 97035- 0908 16 Oct, 2015 Post-traumatic stress disorder, unspecified F43.10 ; Major depressive disorder, recurrent, moderate F33.1 and Problems related to release from detention Z65.2 [place] [address] 90454- 9191 08 Oct, 2015 [place] [id number]- 6254 07 Oct, 2015 Environmental allergies Z91.09 ; Cough R05 and Open-angle glaucoma of both eyes H40.10X0 [place] [id number]- 2546 Sep, [facility] [address] [place] [address] 17687- 2938 Sep, Post-traumatic stress disorder, unspecified F43.10 ; Major depressive disorder, recurrent, moderate F33.1 and Problems related to release from detention Z65.2 [place] [address] [address] 0044 Sep, Chronic pain G89.29 [facility] [id number] [place] [address] 38173- 6733 Sep, Pain in left shoulder M25.512 ; Pain in right shoulder M25.511 and Other chronic pain G89.29 [place] [address] [place] [address] 23474- 8079 Sep, [place] [id number] [place] [address] 29918- 2094 Sep, [facility] [address] [place] [address] 92159- 6951 Sep, [facility] [address] [place] [address] [id number] Aug, Dental examination Z01.20 [facility] [address] [place] [address] 58616- 0302 Aug, Post-traumatic stress disorder, unspecified F43.10 ; Open- angle glaucoma of both eyes H40.10X0 and Problems related to release from detention Z65.2 [facility] [address], [place] [address]- 3802 Aug, [place] [id number] [place] [address] 10530- 2518 Aug, Sleep apnea, obstructive G47.33 ; Obesity E66.9 ; Hyperlipidemia E78.5 ; Bilateral headaches R51 ; HTN (hypertension) I10 ; Post- traumatic stress disorder, unspecified F43.10 ; Anxiety F41.9 ; Neuropathy G62.9 ; Glaucoma H40.9 and Chronic pain G89.29 [facility] [id number] [id number] Aug, Encounter for dental examination Z01.20 [facility] [address], [place] [address]- 0731 Aug, Post-traumatic stress disorder, unspecified F43.10 ; Major depressive disorder, recurrent, moderate F33.1 and Problems related to release from detention Z65.2 [facility] [address] [address]- 1077 Aug, [facility] [address] [place] [address] 11292- 9233 Jul, [facility] [id number] [place] [address] 16316- 9786 Jul, Post-traumatic stress disorder, unspecified F43.10 and Major depressive disorder, recurrent, moderate F33.1 [facility] [address] [address]- 7288 Jul, [facility] [address] [address]- 3004 Jul, [facility] [address], [place] [address]- 4061 Jul, Chronic pain G89.29 [facility] [address] [address]- 0690 June, Post-traumatic stress disorder, unspecified F43.10 and Major depressive disorder, recurrent, moderate F33.1 [facility] [address] [address]- 8786 June, [facility] [address] [place] [address] 75387- 4576 June, Chronic pain G89.29 [facility] [address] [address]- 2140 June, Post-traumatic stress disorder, unspecified F43.10 and Major depressive disorder, recurrent, moderate F33.1 [facility] [id number] [place] [address] 39380- 5684 May, Post-traumatic stress disorder, unspecified F43.10 and Major depressive disorder, recurrent, moderate F33.1 [facility] [address] [place] [address] 39066- 5668 May, [facility] [id number] [place] [address] 31243- 1613 May, [facility] [id number] [place] [address] 02084- 7254 May, [facility] [id number] [place] [address] 47060- 0496 Apr, [facility] [id number] [place] [address] 91175- 8700 Apr, Post-traumatic stress disorder, unspecified F43.10 and Sleep apnea, obstructive G47.33 [facility] [id number] [place] [address] 96122- 0438 Apr, [facility] [id number] [place] [address] 90556- 3652 Apr, Shoulder pain, left M25.512 [facility] [address] [place] [address] 82341- 9666 18 Apr, 2015 Post-traumatic stress disorder, unspecified F43.10 and Major depressive disorder, recurrent, moderate F33.1 [facility] [address], [place] [address]- 0964 17 Apr, 2015 [facility] [id number] [place] [address] 29537- 8547 11 Apr, 2015 [facility] [id number] [place] [address] 45921- 2416 08 Apr, 2015 [facility] [id number] [place] [address]- 2546 Apr, Left shoulder pain M25.512 [place] [id number] [place] [address] 37471- 9274 Mar, [place] [id number] [place] [address] 10348- 0186 Mar, [place] [id number] [place] [address] 468321- 1049 Mar, [place] [id number] [place] [address] 28547- 2617 Mar, Sleep apnea, obstructive G47.33 ; Obesity E66.9 ; Chronic pain G89.29 ; Hyperlipidemia E78.5 ; HTN (hypertension) I10 ; Blindness and low vision H54.10 ; Major depressive disorder, recurrent, moderate F33.1 and Anxiety F41.9 [place] [id number] [place] [address] 66161- 0253 Mar, [place] [id number] [place] [address] 90473- 9341 Mar, Post-traumatic stress disorder, unspecified F43.10 and Major depressive disorder, recurrent, moderate F33.1 [place] [id number] [place] [address] 55596- 8256 08 Mar, 2015 [place] [id number] [place] [address] 23931- 6310 04 Mar, 2015 HTN (hypertension) I10 ; Blindness and low vision H54.10 ; Obesity E66.9 ; Hyperlipidemia E78.5 ; Glaucoma H40.9 ; Chronic pain G89.29 and CAD (coronary artery disease) I25.10 [place] [id number] [place] [address] 90455- 6024 Feb, [place] [id number] [place] [address] 41066- 3256 Feb, Post-traumatic stress disorder, unspecified F43.10 ; Obesity E66.9 ; Sleep apnea, obstructive G47.33 and Open-angle glaucoma of both eyes H40.10X0 [place] [id number] [place] [address] 35475- 7796 Feb, Post-traumatic stress disorder, unspecified F43.10 and Major depressive disorder, recurrent, moderate F33.1 [place] [address] 17177- 7455 Feb, [place] [address] 156344- 5222 Feb, [place] [address] 49997- 2464 Feb, HTN (hypertension) I10 ; Post-traumatic stress disorder, unspecified F43.10 ; Blindness and low vision H54.10 ; Obesity E66.9 ; Hyperlipidemia E78.5 ; Chronic pain G89.29 ; Glaucoma H40.9 ; Mitral valve prolapse I34.1 and Bilateral headaches R51 [place] [id number] [place] [address] 11847- 3282 Feb, [place] [address] 29351- 1981 Feb, Post-traumatic stress disorder, unspecified F43.10 and Major depressive disorder, recurrent, moderate F33.1 [place] [id number] [place] [address] 80962- 6798 Feb, [place] [id number] [place] [address] 97264- 7629 Feb, [place] [id number] [place] [address] 29094- 8400 Jan, [place] [id number] [place] [address] 70824- 6928 Jan, [place] [id number] [place] [address] 14511- 2553 Jan, Obesity E66.9 ; HTN (hypertension) I10 ; Blindness and low vision H54.10 ; Major depressive disorder, recurrent, moderate F33.1 ; Glaucoma H40.9 ; Hyperlipidemia E78.5 ; Sleep apnea, obstructive G47.33 ; Chronic pain G89.29 ; Anxiety F41.9 ; Chronic tension headaches G44.229 and Cough R05 [address] 19238- 4277 Jan, [address] 64809- 0701 Jan, [address] 791128- 6366 Jan, Post-traumatic stress disorder, unspecified F43.10 ; Obesity E66.9 ; Sleep apnea, obstructive G47.33 and Open-angle glaucoma of both eyes H40.10X0 [address] 708430- 5888 Jan, [address] 23038- 7053 Jan, Post-traumatic stress disorder, unspecified F43.10 and Major depressive disorder, recurrent, moderate F33.1 [place] [id number]- 3382 Dec, [place] [id number] [place] [address] 01855- 1279 Dec, Sleep apnea, obstructive G47.33 ; Obesity E66.9 ; Hyperlipidemia E78.5 ; Glaucoma H40.9 ; Chronic pain G89.29 ; HTN (hypertension ) I10 ; Blindness and low vision H54.10 ; Anxiety F41.9 and CAD (coronary artery disease) I25.10 [place] [id number]- 1374 Nov, [address] 27520- 2103 Nov, [address] [place] [address]- 2982 Nov, [facility] [id number] [place] [address] 29933- 2878 Nov, [facility] [id number] [place] [address] 05417- 5285 Nov, [facility] [address] 62993- 5549 Nov, Encounter for immunization Z23 ; Sleep apnea, obstructive G47.33 ; Obesity E66.9 ; Hyperlipidemia E78.5 ; Glaucoma H40.9 ; Chronic pain G89.29 ; Anxiety F41.9 ; Chronic tension headaches G44.229 and HTN (hypertension ) I10 [facility] [id number] [place] [address] 05603- 4459 Nov, [facility] [address] 12809- 9634 Nov, [facility] [address] 37285- 0804 06 Nov, 2014 Dizziness R42 [facility] [address] 17029- 9998 Nov, [facility] [id number] [place] [address] 88478- 4152 29 Oct, 2014 [facility] [id number] [place] [address] 19892- 4192 28 Oct, 2014 [facility] [id number] [place] [address] 50719- 3081 Oct, [facility] [id number] [place] [address] 75657- 2510 Oct, [facility] [id number] [place] [address] 94143- 8368 17 Oct, 2014 Dizziness 780.4 ; Essential hypertension 401.9 ; Obesity 278.00 ; Hyperlipidemia 272.4 ; Chronic pain 338.29 ; Glaucoma 365.9 and Anxiety 300.00 [facility] [id number] [address]- 3924 Oct, Essential hypertension 401.9 ; Hyperlipidemia 272.4 ; Glaucoma 365.9 ; Obesity 278.00 ; Chronic pain 338.29 and Allergy to insects V15.06 [facility] [address], [place] [address]- 9826 Sep, [facility] [id number] [place] [address] 26077- 6154 Sep, [facility] [id number] [place] [address] 59788- 3573 Sep, [facility] [address] [place] [address] 64482- 2757 Sep, [facility] [address] [place] [address] 57470- 2241 Aug, Essential hypertension 401.9 ; Obesity 278.00 ; Hyperlipidemia 272.4 ; Glaucoma 365.9 ; Lipoma 214.9 ; Mitral valve prolapse 424.0 ; Angina at rest 413.9 ; Lymphedema 457.1 and Chronic pain 338.29 IMMUNIZATIONS No Known Immunizations SOCIAL HISTORY Never Assessed REASON FOR VISIT Patient Questions PLAN OF CARE VITAL SIGNS MEDICATIONS Medication Instructions Dosage Frequency Start Date End Date Duration Status Topamax 100 MG TAKE ONE TABLET BY MOUTH TWICE DAILY 90 Active Benzonatate 100 MG Orally Three times a day 1 capsule as needed 8h Active Methotrexate 2.5 MG 3 tablets once for one week then 4 tablets once for 2 weeks then 6 tablets q7days there after Active Atorvastatin Calcium 20 MG TAKE ONE TABLET BY MOUTH ONCE DAILY 90 Active Hydrocodone-Acetaminophen 7.5-325 MG Orally 4 times a day 1 tablet 6h Aug, Active Nitrostat 0.4 MG Sublingual every 5 minutes x 3 PRN 1 tablet 30 days Active Triamterene-HCTZ 37.5-25 MG Orally Once a day 1 tablet in the morning 24h Active Losartan Potassium 100 MG Orally Once a day 1 tablet 24h Active Xanax 1 MG Orally Twice a day for anxiety 1 tablet 30 days Active Cymbalta 30 MG Orally Once a day 1 capsule 24h Active Folic Acid 1 MG Orally Once a day 1 tablet 24h Active Timolol Hemihydrate 0.5 % Ophthalmic 2 times a day 1 drop into both eyes 12h 20 Dec, 2014 Active Oxycodone HCl 5 mg Orally Once a day 1 tablet 24h June, Not- Taking EPINEPHrine 0.3 MG/0.3ML as directed Jul, Active Cartia XT 300 MG Orally Once a day 1 capsule 24h 90 days Active Gabapentin 300 MG TAKE ONE CAPSULE BY MOUTH TWICE DAILY 90 Not- Taking Metoprolol Succinate ER 200 mg Orally Once a day 1 tablet 24h 90 days Active Zofran ODT 4 MG Orally every 8 hrs prn 1 tablet on the tongue and allow to dissolve 10 Not-Taking RESULTS No Results PROCEDURES No Known procedures [...]
--- OUTSIDE RECORDS SUMMARY | 2018-02-04 14:31 | XMS REPORT ---
Author Author ALENA ÁLVAREZ [facility] Address [address] [place] [address] Care Team Providers [facility] Pricing Consultant Name Role Phone ALENA ÁLVAREZ Unavailable PROBLEMS Type Condition ICD9-CM Code SJN02-UN Code Onset Dates Condition Status SNOMED Code Problem Hyperlipidemia E78.5 Active 89917744 Problem Arrhythmia as indication for cardiac pacemaker replacement I49.9 Active 49487026 Problem Sleep apnea, obstructive G47.33 Active 50303562 Problem Primary insomnia F51.01 Active 2251589 Problem Chronic pain G89.29 Active 27349973 Problem Morbid (severe) obesity due to excess calories E66.01 Active 102635465 Problem Body mass index (BMI) of 40.0-44.9 in adult Z68.41 Active 982279253 Problem Other male erectile dysfunction N52.8 Active 247849959 Problem Supraventricular tachycardia I47.1 Active 3188754 Problem Sarcoidosis D86.9 Active 65785845 Problem HTN (hypertension) I10 Active 56783071 Problem Blindness and low vision H54.10 Active 807445668 Problem Myocarditis, unspecified chronicity, 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 Active 69193416 Problem Migraine without aura and without status migrainosus, not intractable G43.009 Active 136736495 Problem 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 Active 783170358 Problem Problems related to release from group home Z65.2 Active 074984578565834 Problem Chronic pain syndrome G89.4 Active 406100164 Problem Major depressive disorder, recurrent, moderate F33.1 Active 11806638 Problem Open-angle glaucoma of both eyes H40.10X0 Active 71310611 Problem Chronic tension headaches G44.229 Active 936365121 Problem Anxiety F41.9 Active 61953156 Problem Post-traumatic stress disorder, chronic F43.12 Active 053830017 Problem Environmental allergies Z91.09 Active 014275330 Problem Mitral valve prolapse I34.1 Active 307493594 Problem CAD (coronary artery disease) I25.10 Active 22983710 ALLERGIES No Information ENCOUNTERS Encounter Location Date Diagnosis [facility] [id number] [place] [place] [address] 15634- 9277 Nov, [facility] [address] 64770- 5900 Oct, [facility] [address] 62453- 4620 Oct, [place] [address] 56907- 6032 Oct, Left leg pain M79.605 [place] [address] 29024- 6069 04 Oct, 2017 Post-traumatic stress disorder, unspecified F43.10 ; Major depressive disorder, recurrent, moderate F33.1 and Problems related to release from group home Z65.2 [place] [address] 24098- 6653 Sep, Arrhythmia as indication for cardiac pacemaker replacement I49.9 [place] [address] 08508- 4775 Sep, [place] [address] 19779- 9189 Sep, HTN (hypertension) I10 [place] [id number] [place] [address] 07944- 2118 Sep, [place] [address] 74752- 3555 Sep, Body mass index (BMI) of 40.0-44.9 in adult Z68.41 ; Chronic pain G89.29 and Supraventricular tachycardia I47.1 [facility] [id number] [place] [address] 39911- 7529 Sep, [facility] [address] 11536- 2653 13 Sep, 2017 Sarcoidosis D86.9 [facility] [address] [address] 36[address] Sep, Sarcoidosis D86.9 [facility] [id number] [place] [address] 21764- 9096 Sep, [facility] [id number] [place] [address] 03704- 3076 Sep, [facility] [id number] [place] [address] 60015- 5897 Sep, [facility] [id number] [place] [address] 12454- 2810 Sep, [facility] [id number] [place] [address] 49651- 3687 Sep, Left leg pain M79.605 [facility] [id number] [place] [address] 59405- 1260 Sep, HTN (hypertension) I10 [facility] [id number] [place] [place] [address] 70990- 2297 Sep, [facility] [id number] [place] [address] 70998- 4307 Sep, Post-traumatic stress disorder, unspecified F43.10 ; Major depressive disorder, recurrent, moderate F33.1 and Problems related to release from group home Z65.2 [facility] [id number] [place] [address] 31563- 9976 Sep, [facility] [address] [address] 2547 Aug, [facility] [id number] [place] [address] 90976- 0190 Aug, Sarcoidosis D86.9 [facility] [address] [address] 2546 Aug, Sarcoidosis D86.9 [facility] [id number] [place] [address] 17466- 5954 30 Aug, 2017 HTN (hypertension) I10 [place] [id number] [place] [address] 10416- 7590 18 Aug, 2017 Post-traumatic stress disorder, unspecified F43.10 ; Major depressive disorder, recurrent, moderate F33.1 and Problems related to release from group home Z65.2 [place] [address] 94086- 0828 11 Aug, 2017 [place] [address] 94472- 7958 Aug, Left leg pain M79.605 [place] [address] 69955- 5970 26 Jul, 2017 Post-traumatic stress disorder, chronic F43.12 ; Anxiety F41.9 ; Problems related to release from group home Z65.2 and BMI 40.0-44.9, adult Z68.41 [place] [address] 93707- 8935 20 Jul, 2017 HTN (hypertension) I10 ; Body mass index (BMI) of 40.0-44.9 in adult Z68.41 ; Acute swimmer''s ear of both sides H60.333 and Chronic pain G89.29 [place] [id number] [place] [address] 86027- 5433 19 Jul, 2017 Glaucoma H40.9 [place] [id number] [place] [address] 66806- 4220 14 Jul, 2017 [place] [id number] [place] [address] 70462- 0776 13 Jul, 2017 Sarcoidosis D86.9 [place] [address] 23516- 0009 Jul, Left leg pain M79.605 [place] [address] 63879- 4741 12 Jul, 2017 Sarcoidosis D86.9 [place] [id number] [address]- 4993 Jul, Post-traumatic stress disorder, unspecified F43.10 ; Major depressive disorder, recurrent, moderate F33.1 and Problems related to release from group home Z65.2 [facility] [id number] [address] 2027 June, [facility] [id number] [place] [address] 50462 -6309 June, Sore throat J02.9 and BMI 40.0-44.9, adult Z68.41 [facility] [id number] [place] [address] 69209- 2699 June, [facility] [id number] [place] [address] 40379- 4881 June, [facility] [id number] [place] [address] 16125- 6994 June, [facility] [id number] [place] [address] 33549- 5152 June, Left leg pain M79.605 [facility] [id number] [place] [address] 88866- 2166 June, Sarcoidosis D86.9 [facility] [id number] [address]- 3696 June, [facility] [id number] [place] [address] 72168- 1752 June, [facility] [address] [address]- 8424 June, Left leg pain M79.605 [facility] [id number] [address]- 2269 May, [facility] [address] [address]- 7798 May, [facility] [id number] [address]- 6549 May, [facility] [id number] [place] [address] 19309- 2685 May, Left leg pain M79.605 [facility] [address] [place] [address] 14949- 7071 May, Post-traumatic stress disorder, unspecified F43.10 ; Major depressive disorder, recurrent, moderate F33.1 and Problems related to release from group home Z65.2 [place] [id number] [place] [address] 49289- 0981 May, Chronic pain G89.29 ; Anxiety F41.9 ; Chest pain, unspecified type R07.9 and BMI 40.0-44.9, adult Z68.41 [place] [id number] [address] 41679- 2287 30 Apr, 2017 [place] [id number] [place] [address] 22014- 2450 Apr, Left leg pain M79.605 [place] [id number] [place] [address] 32223- 5405 27 Apr, 2017 Post-traumatic stress disorder, unspecified F43.10 ; Problems related to release from group home Z65.2 ; Anxiety F41.9 and BMI 40.0-44.9 , adult Z68.41 [place] [id number] [place] [address] 35036- 1555 Apr, [place] [id number] [place] [address] 64265- 6795 Apr, Left leg pain M79.605 [place] [id number] [place] [address] 80726- 2398 Apr, Post-traumatic stress disorder, unspecified F43.10 ; Major depressive disorder, recurrent, moderate F33.1 and Problems related to release from group home Z65.2 [place] [address] 82813- 2867 Apr, [facility] [address] 96448- 9727 12 Apr, 2017 Chronic pain G89.29 ; 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 ; Morbid (severe) obesity due to excess calories E66.01 ; Anxiety F41.9 and BMI 40.0-44.9, adult Z68.41 [facility] [address] 15392 -1015 Apr, Sore throat J02.9 and BMI 40.0-44.9, adult Z68.[address] 08782- 6095 02 Apr, 2017 Left leg pain M79.605 [facility] [address] [id number] Mar, Dental examination Z01.20 [place] [address] 12133- 2151 Mar, [facility] [address] [place] [address] 10750 -4851 Mar, Cough R05 ; Viral gastroenteritis A08.4 and BMI 40.0-44.9, adult Z68.41 [place] [address] 06870- 2334 Mar, Left leg pain M79.605 [place] [address] 64748- 6876 06 Mar, 2017 Post-traumatic stress disorder, unspecified F43.10 ; Major depressive disorder, recurrent, moderate F33.1 and Problems related to release from group home Z65.2 [place] [address] 38151- 3619 Feb, Left leg pain M79.605 [place] [address] 93424- 3286 Feb, [facility] [id number] [place] [address] 67151- 6671 Feb, BMI 40.0-44.9, adult Z68.41 ; Chronic pain syndrome G89.4 ; Migraine without aura and without status migrainosus, not intractable G43.009 ; Mitral valve prolapse I34.1 and 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 [place] [address] 77857- 2002 Feb, Post-traumatic stress disorder, chronic F43.12 ; Anxiety F41.9 ; Problems related to release from group home Z65.2 and BMI 40.0-44.9, adult Z68.41 [place] [address] 23517- 4324 Feb, Post-traumatic stress disorder, unspecified F43.10 ; Major depressive disorder, recurrent, moderate F33.1 and Problems related to release from group home Z65.2 [place] [id number] [place] [address] 75637- 7627 Feb, Left leg pain M79.605 [place] [address] 56712- 0968 Jan, Post-traumatic stress disorder, unspecified F43.10 ; Major depressive disorder, recurrent, moderate F33.1 and Problems related to release from group home Z65.2 [place] [id number] [place] [address] 59174- 9424 Jan, [place] [id number] [place] [address] 98189- 1988 Jan, [place] [id number] [place] [address] 80943- 4677 Jan, Anxiety F41.9 [facility] [id number] [place] [address] 78112- 7897 Jan, Left leg pain M79.605 [place] [address] 84573- 3778 Dec, Left leg pain M79.605 [facility] [address] [place] [place] [address] 92462- 7590 Dec, [facility] [id number] [place] [address] 44981- 6506 Dec, Post-traumatic stress disorder, unspecified F43.10 ; Major depressive disorder, recurrent, moderate F33.1 and Problems related to release from group home Z65.2 [facility] [id number] [place] [address] 51859- 6157 Nov, Chronic pain G89.29 and Anxiety F41.9 [place] [id number] [place] [address] 27005- 6376 Nov, Chronic pain G89.29 and Anxiety F41.9 [facility] [id number] [place] [address] 38961- 6652 16 Nov, 2016 Post-traumatic stress disorder, unspecified F43.10 ; Major depressive disorder, recurrent, moderate F33.1 and Problems related to release from group home Z65.2 [facility] [id number] [place] [address] 03855- 9774 09 Nov, 2016 Other abnormal findings in specimens from other organs, systems and tissues R89.8 ; Other male erectile dysfunction N52.8 ; Body mass index (BMI) of 40.0-44.9 in adult Z68.41 and Morbid (severe) obesity due to excess calories E66.01 [facility] [id number] [place] [address] 40226- 1136 02 Nov, 2016 Post-traumatic stress disorder, unspecified F43.10 ; Major depressive disorder, recurrent, moderate F33.1 and Problems related to release from group home Z65.2 [facility] [address] [place] [address] [id number] Oct, Dental examination Z01.20 [facility] [address] [place] [place] [address] 00668- 1380 Oct, [place] [id number] [place] [place] [address] 45310- 0731 28 Oct, 2016 Encounter for immunization Z23 [place] [address] 43205- 1856 Oct, Chronic pain G89.29 ; Anxiety F41.9 ; Arrhythmia as indication for cardiac pacemaker replacement I49.9 and Glaucoma H40.9 [place] [id number] [place] [address] 35385- 9226 Oct, Anxiety F41.9 ; Post-traumatic stress disorder, chronic F43.12 and Problems related to release from group home Z65.2 [place] [id number] [place] [address] 36082- 4464 07 Oct, 2016 Post-traumatic stress disorder, unspecified F43.10 ; Major depressive disorder, recurrent, moderate F33.1 and Problems related to release from group home Z65.2 [place] [id number] [place] [address] 38490- 0707 Sep, Chronic pain G89.29 and Anxiety F41.9 [place] [id number] [place] [address] 72634- 2790 Sep, Post-traumatic stress disorder, unspecified F43.10 ; Major depressive disorder, recurrent, moderate F33.1 and Problems related to release from group home Z65.2 [place] [id number] [place] [address] 98037- 3908 Sep, Post-traumatic stress disorder, unspecified F43.10 ; Major depressive disorder, recurrent, moderate F33.1 and Problems related to release from group home Z65.2 [place] [id number] [place] [address] 84306- 7188 Sep, Chronic pain G89.29 [place] [id number] [place] [address] 13270- 4384 Aug, Dental caries, unspecified K02.9 [place] [id number] [place] [address] 99026- 9739 Aug, Sleep apnea, obstructive G47.33 ; Obesity E66.9 ; Chronic pain G89.29 ; HTN (hypertension) I10 ; Major depressive disorder, recurrent, moderate F33.1 ; Anxiety F41.9 ; Chronic tension headaches G44.229 ; Mitral valve prolapse I34.1 ; Arrhythmia as indication for cardiac pacemaker replacement I49.9 ; Dental caries, unspecified K02.9 ; Primary insomnia F51.01 and Hyperlipidemia E78.5 [place] [id number] [place] [address] 54010- 7462 Aug, Post-traumatic stress disorder, unspecified F43.10 ; Major depressive disorder, recurrent, moderate F33.1 and Problems related to release from group home Z65.2 [place] [id number] [place] [address] 63697- 2343 Aug, Dental examination Z01.20 [facility] [address] [id number] Aug, Dental examination Z01.20 [facility] [id number] [place] [address] 11872- 9645 Aug, Post-traumatic stress disorder, unspecified F43.10 ; Major depressive disorder, recurrent, moderate F33.1 and Problems related to release from group home Z65.2 [place] [id number] [place] [address] 69682- 3409 Aug, Chronic pain G89.29 and Primary insomnia F51.01 [facility] [id number] [place] [address] 96364- 5959 Jul, [facility] [id number] [place] [address] 40314- 8325 Jul, [place] [id number] [place] [address] 57801- 5490 Jul, Nausea R11.0 [facility] [id number] [place] [address] 46868- 2046 29 Abraham, 2017 Arrhythmia as indication for cardiac pacemaker replacement I49.9 [place] [address] [place] [address] 38479- 7235 13 Jul, 2016 Post-traumatic stress disorder, unspecified F43.10 ; Major depressive disorder, recurrent, moderate F33.1 and Problems related to release from group home Z65.2 [place] [id number] [place] [address] 20728- 3668 09 Jul, 2016 Anxiety F41.9 [place] [address] 18696- 7001 08 Jul, 2016 Chronic pain G89.[address] 46381- 8176 Jul, Sleep apnea, obstructive G47.33 ; Hyperlipidemia E78.5 ; Chronic pain G89.29 ; Blindness and low vision H54.10 ; Major depressive disorder, recurrent, moderate F33.1 ; Anxiety F41.9 ; Mitral valve prolapse I34.1 ; Arrhythmia as indication for cardiac pacemaker replacement I49.9 ; Primary insomnia F51.01 ; Bilateral headaches R51 and Environmental allergies Z91.09 [place] [id number] [place] [address] 39445- 5035 Jul, Post-traumatic stress disorder, unspecified F43.10 ; Major depressive disorder, recurrent, moderate F33.1 and Problems related to release from group home Z65.2 [place] [id number] [place] [address] 73766- 6367 June, Post-traumatic stress disorder, chronic F43.12 ; Anxiety F41.9 ; Problems related to release from group home Z65.2 ; Sleep apnea, obstructive G47.33 and Primary insomnia F51.01 [place] [id number] [place] [address] 94518- 8150 June, [place] [id number] [place] [address] 64337- 4202 June, [place] [id number] [place] [address] 63815- 9710 June, [place] [address] [place] [place] [address] 77597- 9230 June, Chronic pain G89.29 [place] [id number] [place] [address] 95384- 4392 June, Chronic pain G89.29 [place] [address] [place] [address] 87852- 7374 June, Lipoma of left lower extremity D17.24 ; Open wound T14.8 and Swelling of left lower extremity M79.89 [place] [id number] [place] [address] 07247- 1643 June, Post-traumatic stress disorder, unspecified F43.10 ; Major depressive disorder, recurrent, moderate F33.1 and Problems related to release from group home Z65.2 [place] [id number] [place] [address] 18498- 9369 May, Lipoma of left lower extremity D17.24 ; Major depressive disorder, recurrent, moderate F33.1 ; Sleep apnea, obstructive G47.33 ; Hyperlipidemia E78.5 ; Obesity E66.9 ; HTN (hypertension) I10 ; Glaucoma H40.9 ; CAD (coronary artery disease) I25.10 ; Chronic tension headaches G44.229 ; Chronic pain G89.29 ; Anxiety F41.9 ; Nausea R11.0 and Primary insomnia F51.01 [place] [address] [place] [address] 81291- 1234 May, [place] [id number] [place] [place] [address] 95342- 7635 May, Chronic pain G89.29 [place] [id number] [place] [address] 21260- 7564 May, [place] [id number] [place] [address] 34333- 6846 Apr, Post-traumatic stress disorder, unspecified F43.10 ; Major depressive disorder, recurrent, moderate F33.1 and Problems related to release from group home Z65.2 [place] [address] [address]- 9249 Apr, Primary insomnia F51.01 ; Post-traumatic stress disorder, chronic F43.12 and Problems related to release from group home Z65.2 [place] [id number] [place] [address] 92978- 5039 17 Apr, 2016 Post-traumatic stress disorder, unspecified F43.10 ; Major depressive disorder, recurrent, moderate F33.1 and Problems related to release from group home Z65.2 [place] [id number] [place] [address] 79948- 6077 16 Apr, 2016 [place] [id number] [place] [address] 92472- 9158 Apr, Sleep apnea, obstructive G47.33 ; Chronic pain G89.29 ; HTN (hypertension) I10 ; Mitral valve prolapse I34.1 ; Shoulder pain, left M25.512 ; Arrhythmia as indication for cardiac pacemaker replacement I49.9 ; Glaucoma H40.9 ; Bilateral headaches R51 ; Environmental allergies Z91.09 ; Primary insomnia F51.01 and Nausea R11.0 [place] [id number] [place] [address] 68908- 9501 Apr, [place] [id number] [place] [address] 98621- 5320 Apr, [place] [id number] [place] [address] 02056- 2509 Apr, Post-traumatic stress disorder, unspecified F43.10 ; Major depressive disorder, recurrent, moderate F33.1 and Problems related to release from group home Z65.2 [place] [id number] [place] [place] [address] 99411- 4417 Apr, HTN (hypertension) I10 [place] [id number] [place] [address] 78890- 6066 Apr, HTN (hypertension) I10 [place] [id number] [place] [address] 98505- 0708 14 Mar, 2016 Chronic pain G89.29 ; Primary insomnia F51.01 and Problems related to release from group home Z65.2 [place] [id number] [place] [address] 55267- 5006 07 Mar, 2016 Post-traumatic stress disorder, unspecified F43.10 ; Major depressive disorder, recurrent, moderate F33.1 and Problems related to release from group home Z65.2 [place] [address] [id number] [place] [place] [address] 98052- 6689 Feb, Post-traumatic stress disorder, unspecified F43.10 ; Major depressive disorder, recurrent, moderate F33.1 and Problems related to release from group home Z65.2 [place] [address] [id number] [place] [address] 04509- 7252 Feb, Chronic tension headaches G44.229 [place] [id number] [place] [place] [address] 91185- 1393 Feb, Sleep apnea, obstructive G47.33 ; Obesity [...] pacemaker replacement I49.9 and Primary insomnia F51.01 [place] [id number] [place] [address] 57032- 8390 17 Feb, 2016 Post-traumatic stress disorder, unspecified F43.10 and Chronic pain G89.29 [place] [address] [address] [id number] [place] [address] 30021- 7040 Feb, [facility] [id number] [place] [address] [id number] Feb, Dental caries K02.9 [place] [address] [place] [id number] [place] [address] 58756- 5816 Feb, [address] 74232- 6564 Feb, Post-traumatic stress disorder, unspecified F43.10 ; Major depressive disorder, recurrent, moderate F33.1 and Problems related to release from group home Z65.[address] 63304- 6587 Jan, Sleep apnea, obstructive G47.33 and Chronic pain G89.[address] 01783- 1220 Jan, [address] 33969- 7272 Jan, Dental examination Z01.[address] 29508- 4631 Jan, [place] [address] 59962- 7578 Jan, [address] 28599- 9017 Dec, Post-traumatic stress disorder, unspecified F43.10 ; Major depressive disorder, recurrent, moderate F33.1 and Problems related to release from group home Z65.[address] 08985- 2684 Dec, Encounter for immunization Z23 ; Problems related to release from group home Z65.2 ; Sleep apnea, obstructive G47.33 and Post-traumatic stress disorder, chronic F43.[address] 19772- 7535 Dec, Sleep apnea, obstructive G47.33 ; Hyperlipidemia E78.5 ; Chronic pain G89.29 ; Glaucoma H40.9 ; HTN (hypertension) I10 ; Post-traumatic stress disorder, unspecified F43.10 ; Anxiety F41.9 ; Chronic tension headaches G44.229 ; Mitral valve prolapse I34.1 and CAD (coronary artery disease) I25.10 [place] [address] [id number] [address] 85376- 0557 Dec, Post-traumatic stress disorder, unspecified F43.10 ; Major depressive disorder, recurrent, moderate F33.1 and Problems related to release from group home Z65.2 [place] [id number] [address] 29636- 1830 Nov, Chronic pain G89.29 [place] [address] 63228- 7363 Nov, Post-traumatic stress disorder, unspecified F43.10 ; Major depressive disorder, recurrent, moderate F33.1 and Problems related to release from group home Z65.2 [place] [address] [id number] [place] [address] 81945- 0469 Oct, [place] [address] 11611- 6302 Oct, [place] [address] [id number] [place] [address] 34482- 1574 16 Oct, 2015 Post-traumatic stress disorder, unspecified F43.10 ; Major depressive disorder, recurrent, moderate F33.1 and Problems related to release from group home Z65.2 [place] [id number] [place] [address] 74234- 0602 08 Oct, 2015 [place] [address] [id number] [place] [address] 13199- 5375 07 Oct, 2015 Environmental allergies Z91.09 ; Cough R05 and Open-angle glaucoma of both eyes H40.10X0 [place] [address] 04631- 4435 Sep, [place] [address] [address] [id number] [place] [address] 03868- 8397 Sep, Post-traumatic stress disorder, unspecified F43.10 ; Major depressive disorder, recurrent, moderate F33.1 and Problems related to release from group home Z65.2 [place] [id number] [place] [address] 53277- 6716 Sep, Chronic pain G89.29 [place] [address] [id number] [place] [address] 14869- 7149 Sep, Pain in left shoulder M25.512 ; Pain in right shoulder M25.511 and Other chronic pain G89.29 [place] [id number] [place] [address] 10436- 5821 Sep, [place] [id number] [place] [address] 71719- 7991 Sep, [place] [id number] [place] [address] 45348- 9829 Sep, [facility] [id number] [place] [address] [id number] Aug, Dental examination Z01.20 [place] [id number] [address] 79222- 1446 Aug, Post-traumatic stress disorder, unspecified F43.10 ; Open- angle glaucoma of both eyes H40.10X0 and Problems related to release from group home Z65.2 [place] [id number] [place] [address] 37822- 7919 Aug, [place] [address] [id number] [place] [address] 04084- 9655 Aug, Sleep apnea, obstructive G47.33 ; Obesity E66.9 ; Hyperlipidemia E78.5 ; Bilateral headaches R51 ; HTN (hypertension) I10 ; Post- traumatic stress disorder, unspecified F43.10 ; Anxiety F41.9 ; Neuropathy G62.9 ; Glaucoma H40.9 and Chronic pain G89.29 [facility] [id number] [place] [address] [id number] Aug, Encounter for dental examination Z01.20 [place] [id number] [address] 86250- 1869 Aug, Post-traumatic stress disorder, unspecified F43.10 ; Major depressive disorder, recurrent, moderate F33.1 and Problems related to release from group home Z65.2 [facility] [address] [address]- 2305 Aug, [facility] [address] [address]- 7809 Jul, [facility] [id number] [place] [address] 67207- 6254 Jul, Post-traumatic stress disorder, unspecified F43.10 and Major depressive disorder, recurrent, moderate F33.1 [facility] [id number] [place] [address] 55343- 8512 Jul, [facility] [id number] [place] [address] 93544- 7695 Jul, [facility] [id number] [place] [address] 19436- 9397 Jul, Chronic pain G89.29 [facility] [id number] [place] [address] 19567- 8302 June, Post-traumatic stress disorder, unspecified F43.10 and Major depressive disorder, recurrent, moderate F33.1 [facility] [address] [address]- 3240 June, [facility] [id number] [place] [address] 22232- 1127 June, Chronic pain G89.29 [facility] [id number] [place] [place] [address] 81205- 6249 June, Post-traumatic stress disorder, unspecified F43.10 and Major depressive disorder, recurrent, moderate F33.1 [facility] [address] [address]- 3280 May, Post-traumatic stress disorder, unspecified F43.10 and Major depressive disorder, recurrent, moderate F33.1 [facility] [address] [address]- 5625 15 May, 2015 [facility] [id number] [place] [address] 54355- 0881 08 May, 2015 [facility] [address] [address]- 6834 May, [facility] [id number] [place] [address] 90456- 1004 Apr, [facility] [id number] [place] [address] 23729- 8176 Apr, Post-traumatic stress disorder, unspecified F43.10 and Sleep apnea, obstructive G47.33 [facility] [id number] [place] [address] 07626- 0564 Apr, [facility] [id number] [place] [address] 94471- 7377 Apr, Shoulder pain, left M25.512 [facility] [id number] [place] [address] 62248- 7630 Apr, Post-traumatic stress disorder, unspecified F43.10 and Major depressive disorder, recurrent, moderate F33.1 [facility] [address] [address]- 4852 17 Apr, 2015 [facility] [id number] [place] [address] 77405- 2771 Apr, [facility] [address] [address]- 0883 Apr, [facility] [id number] [address] 76457- 7279 07 Apr, 2015 Left shoulder pain M25.512 [facility] [address] [address]- 9903 Mar, [facility] [id number] [place] [address] 88309- 0786 Mar, [place] [id number] [place] [address] 50650- 4418 Mar, [place] [address] [place] [id number] [place] [address]- [address]35 Mar, Sleep apnea, obstructive G47.33 ; Obesity E66.9 ; Chronic pain G89.29 ; Hyperlipidemia E78.5 ; HTN (hypertension) I10 ; Blindness and low vision H54.10 ; Major depressive disorder, recurrent, moderate F33.1 and Anxiety F41.9 [place] [address] [address] [id number] [place] [address] 53276- 1932 Mar, [place] [address] [id number] [place] [address] 69743- 6322 Mar, Post-traumatic stress disorder, unspecified F43.10 and Major depressive disorder, recurrent, moderate F33.1 [place] [address] [id number] [place] [address] 70984- 1023 Mar, [place] [address] [address] [id number] [address] 24953- 5207 Mar, HTN (hypertension) I10 ; Blindness and low vision H54.10 ; Obesity E66.9 ; Hyperlipidemia E78.5 ; Glaucoma H40.9 ; Chronic pain G89.29 and CAD (coronary artery disease) I25.10 [place] [address] [address] [id number] [place] [address] 04182- 9331 Feb, [place] [address] [address] [id number] [place] [address] 95070- 6490 Feb, Post-traumatic stress disorder, unspecified F43.10 ; Obesity E66.9 ; Sleep apnea, obstructive G47.33 and Open-angle glaucoma of both eyes H40.10X0 [place] [address] [address] [id number] [place] [address] 38437- 3369 Feb, Post-traumatic stress disorder, unspecified F43.10 and Major depressive disorder, recurrent, moderate F33.1 [place] [address] [address] [id number] [address] 57824- 1598 Feb, [place] [address] 23371- 0539 Feb, [place] [address] [address] [id number] [place] [address] 00816- 5977 Feb, HTN (hypertension) I10 ; Post-traumatic stress disorder, unspecified F43.10 ; Blindness and low vision H54.10 ; Obesity E66.9 ; Hyperlipidemia E78.5 ; Chronic pain G89.29 ; Glaucoma H40.9 ; Mitral valve prolapse I34.1 and Bilateral headaches R51 [place] [address] 34971- 5631 Feb, [place] [address] [address] [id number] [place] [address] 84283- 0216 Feb, Post-traumatic stress disorder, unspecified F43.10 and Major depressive disorder, recurrent, moderate F33.1 [place] [address] [place] [id number] [address] 09614- 8352 Feb, [place] [address] 61993- 2468 Feb, [place] [address] [id number] [place] [address] 33196- 4509 Jan, [place] [address] [address] [id number] [place] [address] 24088- 2714 Jan, [place] [address] [address] [id number] [place] [address] 06425- 6143 Jan, Obesity E66.9 ; HTN (hypertension) I10 ; Blindness and low vision H54.10 ; Major depressive disorder, recurrent, moderate F33.1 ; Glaucoma H40.9 ; Hyperlipidemia E78.5 ; Sleep apnea, obstructive G47.33 ; Chronic pain G89.29 ; Anxiety F41.9 ; Chronic tension headaches G44.229 and Cough R05 [place] [address] [place] [id number] [place] [address] 54208- 7259 Jan, [facility] [id number] [place] [address] 54345- 9583 Jan, [facility] [id number] [address] 93727- 8978 Jan, Post-traumatic stress disorder, unspecified F43.10 ; Obesity E66.9 ; Sleep apnea, obstructive G47.33 and Open-angle glaucoma of both eyes H40.10X0 [facility] [address] [id number] [address] 73160- 0419 Jan, [place] [id number] [address] 64940- 5687 Jan, Post-traumatic stress disorder, unspecified F43.10 and Major depressive disorder, recurrent, moderate F33.1 [place] [address] [address] [id number] [address] 20731- 4035 Dec, [place] [address] [address] [id number] [address] 48487- 2002 Dec, Sleep apnea, obstructive G47.33 ; Obesity E66.9 ; Hyperlipidemia E78.5 ; Glaucoma H40.9 ; Chronic pain G89.29 ; HTN (hypertension ) I10 ; Blindness and low vision H54.10 ; Anxiety F41.9 and CAD (coronary artery disease) I25.10 [place] [address] [address] [id number] [address] 91419- 7330 Nov, [place] [address] [address] [id number] [place] [address] 40732- 2020 Nov, [facility] [id number] [place] [address] 60731- 6545 Nov, [facility] [id number] [place] [address] 66892- 8597 Nov, [place] [id number] [place] [address] 63530- 5457 Nov, [facility] [id number] [place] [address] 03890- 7598 Nov, Encounter for immunization Z23 ; Sleep apnea, obstructive G47.33 ; Obesity E66.9 ; Hyperlipidemia E78.5 ; Glaucoma H40.9 ; Chronic pain G89.29 ; Anxiety F41.9 ; Chronic tension headaches G44.229 and HTN (hypertension ) I10 [facility] [address] 14758- 5478 Nov, [facility] [address] 30107- 0212 Nov, [facility] [address] 53776- 0317 Nov, Dizziness R42 [facility] [address] 57703- 9402 Nov, [facility] [address] 91241- 5959 Oct, [facility] [address] 12892- 1618 Oct, [facility] [address] 45539- 9963 Oct, [facility] [id number] [address] 37275- 3561 Oct, [facility] [address] 28166- 4797 Oct, Dizziness 780.4 ; Essential hypertension 401.9 ; Obesity 278.00 ; Hyperlipidemia 272.4 ; Chronic pain 338.29 ; Glaucoma 365.9 and Anxiety 300.00 [facility] [id number] [place] [address] 62605- 0404 Oct, Essential hypertension 401.9 ; Hyperlipidemia 272.4 ; Glaucoma 365.9 ; Obesity 278.00 ; Chronic pain 338.29 and Allergy to insects V15.06 [facility] [id number] [place] [address]- 1472 Sep, [facility] [address] [facility] [id number] [place] [address]- 8592 Sep, [facility] [address] [facility] [id number] [place] [address]- 7824 Sep, [facility] [address] [facility] [id number] [address]- 7360 Sep, [facility] [address] [facility] [id number] [address]- 3400 Aug, Essential hypertension 401.9 ; Obesity 278.00 ; Hyperlipidemia 272.4 ; Glaucoma 365.9 ; Lipoma 214.9 ; Mitral valve prolapse 424.0 ; Angina at rest 413.9 ; Lymphedema 457.1 and Chronic pain 338.29 IMMUNIZATIONS No Known Immunizations SOCIAL HISTORY Never Assessed REASON FOR VISIT Labs for Rx at PLAN OF CARE VITAL SIGNS MEDICATIONS Unknown [...]
--- OUTSIDE RECORDS SUMMARY | 2018-02-04 14:32 | XMS REPORT ---
Author Author CJ EDGE [facility] Address [address] [place] [address] Care Team Providers Care Nc Manager Name Role Phone CJ EDGE Unavailable PROBLEMS Type Condition ICD9-CM Code BGY84-[id number] Code Onset Dates Condition Status SNOMED Code Problem Hyperlipidemia E78.5 Active 40906582 Problem Arrhythmia as indication for cardiac pacemaker replacement I49.9 Active 07704838 Problem Sleep apnea, obstructive G47.33 Active 06091369 Problem Primary insomnia F51.01 Active 7402708 Problem Chronic pain G89.29 Active 55018584 Problem Morbid (severe) obesity due to excess calories E66.01 Active 977615374 Problem Body mass index (BMI) of 40.0-44.9 in adult Z68.41 Active 845688887 Problem Other male erectile dysfunction N52.8 Active 455243414 Problem Supraventricular tachycardia I47.1 Active 3100220 Problem Sarcoidosis D86.9 Active 40303436 Problem HTN (hypertension) I10 Active 07501733 Problem Blindness and low vision H54.10 Active 951729317 Problem Myocarditis, unspecified chronicity, 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 Active 34491860 Problem Migraine without aura and without status migrainosus, not intractable G43.009 Active 946416202 Problem 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 Active 285670305 Problem Problems related to release from intermediate Z65.2 Active 746107381264175 Problem Chronic pain syndrome G89.4 Active 484352833 Problem Major depressive disorder, recurrent, moderate F33.1 Active 71827203 Problem Open-angle glaucoma of both eyes H40.10X0 Active 74032947 Problem Chronic tension headaches G44.229 Active 661049929 Problem Anxiety F41.9 Active 26018372 Problem Post-traumatic stress disorder, chronic F43.12 Active 585672865 Problem Environmental allergies Z91.09 Active 702611402 Problem Mitral valve prolapse I34.1 Active 483537964 Problem CAD (coronary artery disease) I25.10 Active 68927678 ALLERGIES Substance Reaction Event Type Date Status [...] Sep, Active ENCOUNTERS Encounter Location Date Diagnosis [place] [address] [address]27[address]41 Nov, [place] [address] 04491- 4891 Oct, [place] [address] 57938- 1375 Oct, [place] [address] 44852- 5192 Oct, Left leg pain M79.605 [place] [address] 43787- 9559 04 Oct, 2017 Post-traumatic stress disorder, unspecified F43.10 ; Major depressive disorder, recurrent, moderate F33.1 and Problems related to release from intermediate Z65.2 [place] [address] 91882- 2354 Sep, Arrhythmia as indication for cardiac pacemaker replacement I49.9 [place] [address] [place] [id number] [place] [address] 36207- 8643 Sep, [place] [address] 72492- 7893 Sep, HTN (hypertension) I10 [place] [address] [place] [id number] [place] [address] 50027- 5611 Sep, [place] [address] 56404- 2399 Sep, Body mass index (BMI) of 40.0-44.9 in adult Z68.41 ; Chronic pain G89.29 and Supraventricular tachycardia I47.1 [facility] [place] [address] 18319- 8359 15 Sep, 2017 [facility] [place] [address] [place] [id number] [place] [address] 06900- 0047 Sep, Sarcoidosis D86.9 [facility] [place] [address] 94705- 1245 Sep, Sarcoidosis D86.9 [facility] [place] [address] [place] [id number] [place] [address] 17662- 8791 Sep, [facility] [place] [address] [place] [id number] [place] [address] 58611- 1572 Sep, [facility] [place] [address] [place] [id number] [place] [address] 20061- 9233 Sep, [facility] [place] [address] [place] [id number] [place] [address] 31661- 7689 Sep, [facility] [place] [address] [place] [id number] [place] [address] 52157- 6021 Sep, Left leg pain M79.605 [facility] [place] [address] [place] [id number] [place] [address] 84786- 9244 Sep, HTN (hypertension) I10 [facility] [place] [address] [place] [id number] [place] [address] 81949- 1704 Sep, [facility] [place] [address] [place] [id number] [place] [address] 61567- 5990 Sep, Post-traumatic stress disorder, unspecified F43.10 ; Major depressive disorder, recurrent, moderate F33.1 and Problems related to release from intermediate Z65.2 [facility] [place] [address] [place] [id number] [place] [address] 83708- 8891 Sep, [facility] [place] [address] [place] [id number] [place] [address] 00060- 8995 Aug, [facility] [place] [address] [place] [address] 53311- 1632 Aug, Sarcoidosis D86.9 [facility] [place] [address] [place] [id number] [place] [address] 71427- 2171 Aug, Sarcoidosis D86.9 [facility] [place] [address] [place] [id number] [place] [address] 57652- 6171 Aug, HTN (hypertension) I10 [place] [address] 86533- 5129 Aug, Post-traumatic stress disorder, unspecified F43.10 ; Major depressive disorder, recurrent, moderate F33.1 and Problems related to release from intermediate Z65.2 [place] [address] 24295- 5147 Aug, [place] [address] 35343- 7737 Aug, Left leg pain M79.605 [place] [address] [place] [id number] [place] [address] 15537- 3067 Jul, Post-traumatic stress disorder, chronic F43.12 ; Anxiety F41.9 ; Problems related to release from intermediate Z65.2 and BMI 40.0-44.9, adult Z68.41 [place] [address] [place] [id number] [place] [address] 96261- 5098 20 Jul, 2017 HTN (hypertension) I10 ; Body mass index (BMI) of 40.0-44.9 in adult Z68.41 ; Acute swimmer''s ear of both sides H60.333 and Chronic pain G89.29 [place] [address] [place] [id number] [place] [address] 22638- 4718 19 Jul, 2017 Glaucoma H40.9 [place] [address] [place] [id number] [place] [address] 27215- 6205 14 Jul, 2017 [place] [address] [place] [address]- 1672 13 Jul, 2017 Sarcoidosis D86.9 [facility] [place] [address] [place] [id number] [place] [address] 90963- 2563 Jul, Left leg pain M79.605 [facility] [place] [address] [place] [id number] [place] [address] 28137- 9392 Jul, Sarcoidosis D86.9 [facility] [place] [address] [place] [id number] [place] [address] 78650- 0075 Jul, Post-traumatic stress disorder, unspecified F43.10 ; Major depressive disorder, recurrent, moderate F33.1 and Problems related to release from intermediate Z65.2 [facility] [place] [address] [place] [id number] [place] [address] 92973- 6497 June, [facility] [address] [place] [id number] [place] [address] 46147 -0683 June, Sore throat J02.9 and BMI 40.0-44.9, adult Z68.41 [facility] [place] [address] [place] [id number] [place] [address] 58368- 2608 June, [facility] [place] [address] [place] [id number] [place] [address] 11700- 4976 June, [facility] [place] [address] [place] [address] 96219- 0817 June, [facility] [place] [address] [place] [id number] [place] [address] 44064- 5654 June, Left leg pain M79.605 [facility] [place] [address] [place] [id number] [place] [address] 65230- 4802 June, Sarcoidosis D86.9 [facility] [place] [address] [place] [id number] [place] [address] 39247- 8222 June, [facility] [place] [address] [place] [id number] [place] [address] 08764- 2125 June, [facility] [place] [address] [place] [address] [address]- 8066 June, Left leg pain M79.605 [facility] [place] [address] [place] [id number] [place] [address] 45412- 4520 May, [facility] [place] [address] [place] [id number] [place] [address] 97400- 8156 May, [facility] [place] [address] [place] [id number] [place] [address] 27566- 2967 May, [facility] [place] [address] [place] [id number] [place] [address] 61852- 3684 May, Left leg pain M79.605 [place] [address] [place] [id number] [place] [address] 30478- 8451 May, Post-traumatic stress disorder, unspecified F43.10 ; Major depressive disorder, recurrent, moderate F33.1 and Problems related to release from intermediate Z65.2 [facility] [place] [address] [place] [id number] [place] [address] 51353- 0619 May, Chronic pain G89.29 ; Anxiety F41.9 ; Chest pain, unspecified type R07.9 and BMI 40.0-44.9, adult Z68.41 [facility] [place] [address] [place] [address] 44563- 5837 Apr, [place] [address] [place] [id number] [place] [address] 25870- 8968 Apr, Left leg pain M79.605 [facility] [place] [address] [place] [address] 59751- 8220 Apr, Post-traumatic stress disorder, unspecified F43.10 ; Problems related to release from intermediate Z65.2 ; Anxiety F41.9 and BMI 40.0-44.9 , adult Z68.41 [facility] [place] [address] [place] [address] 29184- 6771 Apr, [facility] [place] [address] [place] [id number] [place] [address] 59476- 5122 Apr, Left leg pain M79.605 [place] [address] 76373- 4633 13 Apr, 2017 Post-traumatic stress disorder, unspecified F43.10 ; Major depressive disorder, recurrent, moderate F33.1 and Problems related to release from intermediate Z65.2 [place] [address] 69390- 5417 Apr, [place] [address] 65923- 3352 12 Apr, 2017 Chronic pain G89.29 ; 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 ; Morbid (severe) obesity due to excess calories E66.01 ; Anxiety F41.9 and BMI 40.0-44.9, adult Z68.41 [facility] [address] 7[address]60 -6093 10 Apr, 2017 Sore throat J02.9 and BMI 40.0-44.9, adult Z68.[address] 54260- 3546 02 Apr, 2017 Left leg pain M79.605 [facility] [address] [id number] 28 Mar, 2017 Dental examination Z01.[address] 86690- 3906 Mar, [facility] [address] [place] [address] 22534 -1838 Mar, Cough R05 ; Viral gastroenteritis A08.4 and BMI 40.0-44.9, adult Z68.[address] 17582- 1670 Mar, Left leg pain M79.605 [place] [address] 80122- 4190 06 Mar, 2017 Post-traumatic stress disorder, unspecified F43.10 ; Major depressive disorder, recurrent, moderate F33.1 and Problems related to release from intermediate Z65.2 [place] [address] [place] [id number] [place] [address] 74025- 5105 Feb, Left leg pain M79.605 [facility] [place] [address] [place] [id number] [place] [address] 40987- 7140 Feb, [place] [address] 36626- 0596 Feb, BMI 40.0-44.9, adult Z68.41 ; Chronic pain syndrome G89.4 ; Migraine without aura and without status migrainosus, not intractable G43.009 ; Mitral valve prolapse I34.1 and 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 [place] [address] [place] [id number] [place] [address] 37035- 6009 Feb, Post-traumatic stress disorder, chronic F43.12 ; Anxiety F41.9 ; Problems related to release from intermediate Z65.2 and BMI 40.0-44.9, adult Z68.41 [place] [address] [place] [id number] [place] [address] 81272- 0875 Feb, Post-traumatic stress disorder, unspecified F43.10 ; Major depressive disorder, recurrent, moderate F33.1 and Problems related to release from intermediate Z65.2 [place] [address] [place] [id number] [place] [address] 11317- 6864 Feb, Left leg pain M79.605 [place] [address] [place] [id number] [place] [address] 85783- 5093 Jan, Post-traumatic stress disorder, unspecified F43.10 ; Major depressive disorder, recurrent, moderate F33.1 and Problems related to release from intermediate Z65.2 [place] [address] [place] [id number] [place] [address] 03171- 7803 Jan, [place] [address] [place] [id number] [place] [address] 66444- 4765 Jan, [facility] [place] [address] [address]- 7188 Jan, Anxiety F41.9 [place] [address] [place] [address] 51553- 3871 Jan, Left leg pain M79.605 [facility] [place] [address] [address]- 6223 Dec, Left leg pain M79.605 [facility] [place] [address] [place] [address] 66616- 0826 Dec, [place] [address] [place] [id number] [place] [address] 58827- 5537 Dec, Post-traumatic stress disorder, unspecified F43.10 ; Major depressive disorder, recurrent, moderate F33.1 and Problems related to release from intermediate Z65.2 [place] [address] [place] [id number] [place] [address] 17375- 6704 31 Nov, 2016 Chronic pain G89.29 and Anxiety F41.9 [place] [address] [place] [id number] [place] [address] 52846- 0835 24 Nov, 2016 Chronic pain G89.29 and Anxiety F41.9 [place] [address] [place] [address] 99824- 9320 16 Nov, 2016 Post-traumatic stress disorder, unspecified F43.10 ; Major depressive disorder, recurrent, moderate F33.1 and Problems related to release from intermediate Z65.2 [place] [address] [place] [address]- 7275 09 Nov, 2016 Other abnormal findings in specimens from other organs, systems and tissues R89.8 ; Other male erectile dysfunction N52.8 ; Body mass index (BMI) of 40.0-44.9 in adult Z68.41 and Morbid (severe) obesity due to excess calories E66.01 [place] [address] [place] [address] 53232- 0975 02 Nov, 2016 Post-traumatic stress disorder, unspecified F43.10 ; Major depressive disorder, recurrent, moderate F33.1 and Problems related to release from intermediate Z65.2 [facility] [address] [address] 29 Oct, 2016 Dental examination Z01.20 [facility] [place] [address] [place] [address]- 7282 Oct, [facility] [place] [address] [place] [id number] [place] [address] 27698- 8707 Oct, Encounter for immunization Z23 [place] [address] [place] [id number] [place] [address] 93192- 1886 Oct, Chronic pain G89.29 ; Anxiety F41.9 ; Arrhythmia as indication for cardiac pacemaker replacement I49.9 and Glaucoma H40.9 [facility] [place] [address] [place] [address] 32418- 9467 Oct, Anxiety F41.9 ; Post-traumatic stress disorder, chronic F43.12 and Problems related to release from intermediate Z65.2 [facility] [place] [address] [place] [address]- 6929 Oct, Post-traumatic stress disorder, unspecified F43.10 ; Major depressive disorder, recurrent, moderate F33.1 and Problems related to release from intermediate Z65.2 [facility] [place] [address] [place] [address]- 3561 Sep, Chronic pain G89.29 and Anxiety F41.9 [facility] [place] [address] [place] [address]- 9065 Sep, Post-traumatic stress disorder, unspecified F43.10 ; Major depressive disorder, recurrent, moderate F33.1 and Problems related to release from intermediate Z65.2 [facility] [place] [address] [place] [address]- 9401 Sep, Post-traumatic stress disorder, unspecified F43.10 ; Major depressive disorder, recurrent, moderate F33.1 and Problems related to release from intermediate Z65.2 [facility] [place] [address] [place] [address] 04926- 5091 Sep, Chronic pain G89.29 [place] [address] [place] [id number] [place] [address] 05687- 8480 Aug, Dental caries, unspecified K02.9 [place] [address] [place] [id number] [place] [address] 45485- 6891 Aug, Sleep apnea, obstructive G47.33 ; Obesity E66.9 ; Chronic pain G89.29 ; HTN (hypertension) I10 ; Major depressive disorder, recurrent, moderate F33.1 ; Anxiety F41.9 ; Chronic tension headaches G44.229 ; Mitral valve prolapse I34.1 ; Arrhythmia as indication for cardiac pacemaker replacement I49.9 ; Dental caries, unspecified K02.9 ; Primary insomnia F51.01 and Hyperlipidemia E78.5 [place] [address] [place] [id number] [place] [address] 15784- 5256 Aug, Post-traumatic stress disorder, unspecified F43.10 ; Major depressive disorder, recurrent, moderate F33.1 and Problems related to release from intermediate Z65.2 [place] [address] [place] [id number] [place] [address] 11379- 4182 Aug, Dental examination Z01.20 [facility] [address] [place] [address] [id number] Aug, Dental examination Z01.20 [facility] [place] [address] [place] [id number] [place] [address] 50503- 6127 Aug, Post-traumatic stress disorder, unspecified F43.10 ; Major depressive disorder, recurrent, moderate F33.1 and Problems related to release from intermediate Z65.2 [place] [address] [place] [id number] [place] [address] 15216- 4777 Aug, Chronic pain G89.29 and Primary insomnia F51.01 [place] [address] [place] [id number] [place] [address] 19549- 0855 Jul, [place] [address], [place] [address]- 7008 Jul, [place] [address] [place] [id number] [place] [address] 23235- 9988 Jul, Nausea R11.0 [place] [address] [place] [id number] [place] [address] 88435- 5702 Jul, Arrhythmia as indication for cardiac pacemaker replacement I49.9 [place] [address] [place] [id number] [place] [address] 09106- 2814 13 Jul, 2016 Post-traumatic stress disorder, unspecified F43.10 ; Major depressive disorder, recurrent, moderate F33.1 and Problems related to release from intermediate Z65.2 [place] [id number] [place] [address] 64090- 3993 09 Jul, 2016 Anxiety F41.9 [place] [id number] [place] [address] 23583- 8337 08 Jul, 2016 Chronic pain G89.29 [place] [address] [place] [address] 98758- 1828 02 Jul, 2016 Sleep apnea, obstructive G47.33 ; Hyperlipidemia E78.5 ; Chronic pain G89.29 ; Blindness and low vision H54.10 ; Major depressive disorder, recurrent, moderate F33.1 ; Anxiety F41.9 ; Mitral valve prolapse I34.1 ; Arrhythmia as indication for cardiac pacemaker replacement I49.9 ; Primary insomnia F51.01 ; Bilateral headaches R51 and Environmental allergies Z91.09 [address] [place] [address] 49029- 9592 Jul, Post-traumatic stress disorder, unspecified F43.10 ; Major depressive disorder, recurrent, moderate F33.1 and Problems related to release from intermediate Z65.2 [place] [address], [place] [address]- 7699 June, Post-traumatic stress disorder, chronic F43.12 ; Anxiety F41.9 ; Problems related to release from intermediate Z65.2 ; Sleep apnea, obstructive G47.33 and Primary insomnia F51.01 [place] [address] [place] [id number] [place] [address] 38893- 8283 June, [place] [address] [place] [id number] [place] [address] 66414- 3868 June, [place] [address] [place] [id number] [place] [address] 05601- 8400 June, [place] [address] 56065- 9168 June, Chronic pain G89.[address] 74016- 6416 June, Chronic pain G89.29 [place] [address] [place] [id number] [place] [address] 62427- 8659 June, Lipoma of left lower extremity D17.24 ; Open wound T14.8 and Swelling of left lower extremity M79.89 [place] [address] [place] [address] 28220- 9399 June, Post-traumatic stress disorder, unspecified F43.10 ; Major depressive disorder, recurrent, moderate F33.1 and Problems related to release from intermediate Z65.2 [place] [address] [place] [id number] [place] [address] 91145- 0427 May, Lipoma of left lower extremity D17.24 ; Major depressive disorder, recurrent, moderate F33.1 ; Sleep apnea, obstructive G47.33 ; Hyperlipidemia E78.5 ; Obesity E66.9 ; HTN (hypertension) I10 ; Glaucoma H40.9 ; CAD (coronary artery disease) I25.10 ; Chronic tension headaches G44.229 ; Chronic pain G89.29 ; Anxiety F41.9 ; Nausea R11.0 and Primary insomnia F51.01 [place] [address] [place] [id number] [place] [address] 06681- 1188 May, [place] [address] 26002- 8927 May, Chronic pain G89.29 [place] [address], [place] [address]- 5252 May, [place] [address] [place] [id number] [place] [address] 311120- 5362 31 Apr, 2016 Post-traumatic stress disorder, unspecified F43.10 ; Major depressive disorder, recurrent, moderate F33.1 and Problems related to release from intermediate Z65.2 [place] [address] [place] [id number] [place] [address] 18027- 1703 28 Apr, 2016 Primary insomnia F51.01 ; Post-traumatic stress disorder, chronic F43.12 and Problems related to release from intermediate Z65.2 [place] [address] [place] [id number] [place] [address] 51246- 7682 17 Apr, 2016 Post-traumatic stress disorder, unspecified F43.10 ; Major depressive disorder, recurrent, moderate F33.1 and Problems related to release from intermediate Z65.2 [place] [address] [place] [address] 76147- 0634 16 Apr, 2016 [place] [address] [place] [id number] [place] [address] 38216- 8537 Apr, Sleep apnea, obstructive G47.33 ; Chronic pain G89.29 ; HTN (hypertension) I10 ; Mitral valve prolapse I34.1 ; Shoulder pain, left M25.512 ; Arrhythmia as indication for cardiac pacemaker replacement I49.9 ; Glaucoma H40.9 ; Bilateral headaches R51 ; Environmental allergies Z91.09 ; Primary insomnia F51.01 and Nausea R11.0 [place] [id number] [address] Apr, [place] [address] [place] [id number] [place] [address] 65210- 5381 Apr, [place] [address] [place] [id number] [place] [address] 82765- 6939 Apr, Post-traumatic stress disorder, unspecified F43.10 ; Major depressive disorder, recurrent, moderate F33.1 and Problems related to release from intermediate Z65.2 [place] [id number] [place] [address] 14796- 4207 Apr, HTN (hypertension) I10 [place] [id number] [place] [address] 13447- 2476 Apr, HTN (hypertension) I10 [place] [address] [place] [id number] [place] [address] 01571- 1945 14 Mar, 2016 Chronic pain G89.29 ; Primary insomnia F51.01 and Problems related to release from intermediate Z65.2 [place] [id number] [place], [place] [address] 07 Mar, 2016 Post-traumatic stress disorder, unspecified F43.10 ; Major depressive disorder, recurrent, moderate F33.1 and Problems related to release from intermediate Z65.2 [place] [id number] [place] [address] 14768- 3284 Feb, Post-traumatic stress disorder, unspecified F43.10 ; Major depressive disorder, recurrent, moderate F33.1 and Problems related to release from intermediate Z65.2 [address] [id number] [place] [address] 52828- 9180 Feb, Chronic tension headaches G44.229 [address] [id number] [place] [address] 48286- 3000 Feb, Sleep apnea, obstructive G47.33 ; Obesity [...] pacemaker replacement I49.9 and Primary insomnia F51.01 [address] [id number] [place] [address] 71760- 9732 Feb, Post-traumatic stress disorder, unspecified F43.10 and Chronic pain G89.29 [facility], [place] [address], [place] [address] Feb, [facility] [id number] [id number] Feb, Dental caries K02.9 [facility], [place] [address] [place] [address] 96666- 3969 Feb, [facility] [place] [address] [place] [address] 38823- 5149 Feb, Post-traumatic stress disorder, unspecified F43.10 ; Major depressive disorder, recurrent, moderate F33.1 and Problems related to release from intermediate Z65.2 [facility], [place] [address], [place] [address] 0[address] Jan, Sleep apnea, obstructive G47.33 and Chronic pain G89.29 [facility], [place] [address], [place] [address] 47[address] Jan, [facility], [place] [id number] [place] [address] 42800- 7866 Jan, Dental examination Z01.20 [facility] [place] [address], [place] [address] 8175 Jan, [facility] [place] [address], [place] [address]- 2175 Jan, [facility] [place] [address], [place] [address] 6799 Dec, Post-traumatic stress disorder, unspecified F43.10 ; Major depressive disorder, recurrent, moderate F33.1 and Problems related to release from intermediate Z65.2 [facility] [place] [id number], [place] [address] 56[address] Dec, Encounter for immunization Z23 ; Problems related to release from intermediate Z65.2 ; Sleep apnea, obstructive G47.33 and Post-traumatic stress disorder, chronic F43.12 [id number] [place] [address] 03031- 2082 Dec, Sleep apnea, obstructive G47.33 ; Hyperlipidemia E78.5 ; Chronic pain G89.29 ; Glaucoma H40.9 ; HTN (hypertension) I10 ; Post-traumatic stress disorder, unspecified F43.10 ; Anxiety F41.9 ; Chronic tension headaches G44.229 ; Mitral valve prolapse I34.1 and CAD (coronary artery disease) I25.[address] 19045- 5637 Dec, Post-traumatic stress disorder, unspecified F43.10 ; Major depressive disorder, recurrent, moderate F33.1 and Problems related to release from intermediate Z65.[address] 43541- 5391 Nov, Chronic pain G89.[address] 87147- 7485 Nov, Post-traumatic stress disorder, unspecified F43.10 ; Major depressive disorder, recurrent, moderate F33.1 and Problems related to release from intermediate Z65.2 [place] [address] 36970- 7076 Oct, [place] [id number] [place] [address] 64133- 4687 Oct, [address] 47622- 3747 16 Oct, 2015 Post-traumatic stress disorder, unspecified F43.10 ; Major depressive disorder, recurrent, moderate F33.1 and Problems related to release from intermediate Z65.[address] 53102- 0450 08 Oct, [address] 00720- 9608 07 Oct, 2015 Environmental allergies Z91.09 ; Cough R05 and Open-angle glaucoma of both eyes H40.10X0 [facility], [place] [id number] [place] [address] 99584- 6156 Sep, [facility] [place] [id number] [place] [address] 50167- 3553 Sep, Post-traumatic stress disorder, unspecified F43.10 ; Major depressive disorder, recurrent, moderate F33.1 and Problems related to release from intermediate Z65.2 [facility] [place] [id number] [place] [address] 24157- 2962 Sep, Chronic pain G89.29 [facility], [place] [id number] [place] [address] 02589- 4106 Sep, Pain in left shoulder M25.512 ; Pain in right shoulder M25.511 and Other chronic pain G89.29 [place] [id number] [place] [address] 65084- 0790 Sep, [facility] [place] [id number] [place] [address] 13262- 0291 Sep, [facility] [place] [id number] [place] [address] 08268- 0042 Sep, [facility] [address] [place] [address] [id number] Aug, Dental examination Z01.20 [facility], [place] [id number] [place] [address] 32288- 0498 Aug, Post-traumatic stress disorder, unspecified F43.10 ; Open- angle glaucoma of both eyes H40.10X0 and Problems related to release from intermediate Z65.2 [facility], [place] [id number] [place] [address] 04712- 6698 Aug, [facility] [place] [id number] [place] [address] 46052- 9363 Aug, Sleep apnea, obstructive G47.33 ; Obesity E66.9 ; Hyperlipidemia E78.5 ; Bilateral headaches R51 ; HTN (hypertension) I10 ; Post- traumatic stress disorder, unspecified F43.10 ; Anxiety F41.9 ; Neuropathy G62.9 ; Glaucoma H40.9 and Chronic pain G89.29 [facility] [address] [id number] Aug, Encounter for dental examination Z01.20 [facility], [place] [id number] [place] [address] 57955- 4946 08 Aug, 2015 Post-traumatic stress disorder, unspecified F43.10 ; Major depressive disorder, recurrent, moderate F33.1 and Problems related to release from intermediate Z65.2 [facility], [place] [id number] [place] [address] 72797- 2511 Aug, [facility] [place] [id number] [place] [address] 57589- 9926 Jul, [facility], [place] [id number] [place] [address] 98530- 3303 Jul, Post-traumatic stress disorder, unspecified F43.10 and Major depressive disorder, recurrent, moderate F33.1 [facility], [place] [address] [place] [address] 55100- 0889 Jul, [facility], [place] [id number] [place] [address] 74792- 1437 Jul, [facility], [place] [address] [place] [address] 44401- 2287 Jul, Chronic pain G89.29 [facility], [place] [address] [place] [address] 24142- 7539 June, Post-traumatic stress disorder, unspecified F43.10 and Major depressive disorder, recurrent, moderate F33.1 [facility], [place] [id number] [place] [address] 04239- 9352 June, [facility], [place] [id number] [place] [address] 41556- 2155 June, Chronic pain G89.29 [facility], [place] [id number] [place] [address] 63306- 3146 June, Post-traumatic stress disorder, unspecified F43.10 and Major depressive disorder, recurrent, moderate F33.1 [facility], [place] [id number] [place] [address] 27971- 5541 May, Post-traumatic stress disorder, unspecified F43.10 and Major depressive disorder, recurrent, moderate F33.1 [facility], [place] [id number] [place] [address] 32206- 4603 May, [facility], [place] [id number] [place] [address] 05061- 8592 May, [facility], [place] [id number] [place] [address] 06088- 4392 May, [facility], [place] [id number] [place] [address] 35434- 9989 Apr, [facility], [place] [id number] [place] [address] 27118- 5418 Apr, Post-traumatic stress disorder, unspecified F43.10 and Sleep apnea, obstructive G47.33 [facility], [place] [id number] [place] [address] 68447- 3828 Apr, [facility], [place] [id number] [place] [address] 64855- 8740 Apr, Shoulder pain, left M25.512 [facility], [place] [id number] [place] [address] 63394- 1687 18 Apr, 2015 Post-traumatic stress disorder, unspecified F43.10 and Major depressive disorder, recurrent, moderate F33.1 [facility], [place] [id number] [place] [address] 52919- 9616 17 Apr, 2015 [facility] [place] [id number] [place] [address] 74673- 9284 11 Apr, 2015 [facility], [place] [id number] [place] [address] 47515- 8435 Apr, [place] [address] [place] [address] 81024- 6114 Apr, Left shoulder pain M25.512 [place] [id number] [place] [address] 82276- 2445 Mar, [place] [id number] [place] [address] 65198- 8860 Mar, [place] [id number] [place] [address] 82726- 3543 Mar, [place] [id number] [place] [address] 71853- 2402 Mar, Sleep apnea, obstructive G47.33 ; Obesity E66.9 ; Chronic pain G89.29 ; Hyperlipidemia E78.5 ; HTN (hypertension) I10 ; Blindness and low vision H54.10 ; Major depressive disorder, recurrent, moderate F33.1 and Anxiety F41.9 [place] [id number] [place] [address] 75104- 4159 Mar, [place] [id number] [place] [address] 35224- 8902 Mar, Post-traumatic stress disorder, unspecified F43.10 and Major depressive disorder, recurrent, moderate F33.1 [place] [address] [place] [address] 56309- 3764 Mar, [place] [id number] [place] [address] 46577- 2415 04 Mar, 2015 HTN (hypertension) I10 ; Blindness and low vision H54.10 ; Obesity E66.9 ; Hyperlipidemia E78.5 ; Glaucoma H40.9 ; Chronic pain G89.29 and CAD (coronary artery disease) I25.10 [place] [id number] [place] [address] 76466- 8151 Feb, [place] [id number] [place] [address] 2546 Feb, Post-traumatic stress disorder, unspecified F43.10 ; Obesity E66.9 ; Sleep apnea, obstructive G47.33 and Open-angle glaucoma of both eyes H40.10X0 [facility], [place] [id number] [place] [address] 18655- 7053 Feb, Post-traumatic stress disorder, unspecified F43.10 and Major depressive disorder, recurrent, moderate F33.1 [place] [id number] [place] [address] 35601- 4307 Feb, [place] [id number] [place] [address] 97113- 5092 Feb, [place] [id number] [place] [address] 06610- 1508 Feb, HTN (hypertension) I10 ; Post-traumatic stress disorder, unspecified F43.10 ; Blindness and low vision H54.10 ; Obesity E66.9 ; Hyperlipidemia E78.5 ; Chronic pain G89.29 ; Glaucoma H40.9 ; Mitral valve prolapse I34.1 and Bilateral headaches R51 [place] [id number] [place] [address] 45836- 1269 Feb, [place] [id number] [place] [address] 36817- 4515 Feb, Post-traumatic stress disorder, unspecified F43.10 and Major depressive disorder, recurrent, moderate F33.1 [place] [id number] [place] [address] 25268- 3855 Feb, [place] [id number] [place] [address] 86553- 4915 Feb, [place] [address] 91680- 9366 Jan, [place] [id number] [place] [address] 29403- 0488 Jan, [place] [address] 76956- 0812 Jan, Obesity E66.9 ; HTN (hypertension) I10 ; Blindness and low vision H54.10 ; Major depressive disorder, recurrent, moderate F33.1 ; Glaucoma H40.9 ; Hyperlipidemia E78.5 ; Sleep apnea, obstructive G47.33 ; Chronic pain G89.29 ; Anxiety F41.9 ; Chronic tension headaches G44.229 and Cough R05 [place] [address] 390289- 0346 Jan, [place] [address] 215339- 9575 Jan, [place] [address] [id number]- 2505 Jan, Post-traumatic stress disorder, unspecified F43.10 ; Obesity E66.9 ; Sleep apnea, obstructive G47.33 and Open-angle glaucoma of both eyes H40.10X0 [place] [address] 20935- 4285 Jan, [place] [address] 41524144- 6960 Jan, Post-traumatic stress disorder, unspecified F43.10 and Major depressive disorder, recurrent, moderate F33.1 [place] [address] 59533- 1028 Dec, [place] [address] 390287- 4161 Dec, Sleep apnea, obstructive G47.33 ; Obesity E66.9 ; Hyperlipidemia E78.5 ; Glaucoma H40.9 ; Chronic pain G89.29 ; HTN (hypertension ) I10 ; Blindness and low vision H54.10 ; Anxiety F41.9 and CAD (coronary artery disease) I25.10 [place] [address] 85583- 6656 Nov, [place] [address] 53696- 5440 Nov, [facility], [place] [address] 43011- 6289 Nov, [facility], [place] [address] 77427- 8789 Nov, [facility], [place] [address] 93012- 6219 Nov, [facility], [place] [address] 19602- 0937 Nov, Encounter for immunization Z23 ; Sleep apnea, obstructive G47.33 ; Obesity E66.9 ; Hyperlipidemia E78.5 ; Glaucoma H40.9 ; Chronic pain G89.29 ; Anxiety F41.9 ; Chronic tension headaches G44.229 and HTN (hypertension ) I10 [facility], [place] [address] 13814- 5322 Nov, [facility], [place] [address] 17806- 2374 Nov, [facility], [place] [address] 30285- 6191 06 Nov, 2014 Dizziness R42 [facility], [place] [address] 76458- 0663 Nov, [facility], [place] [id number] [place] [address] 94542- 7755 29 Oct, 2014 [facility] [place] [address] 33304- 6227 28 Oct, 2014 [facility] [place] [address] 90669- 7911 21 Oct, 2014 [facility] [place] [address] 31436- 6573 21 Oct, 2014 [facility] [place] [id number] [place] [address] 90774- 3271 17 Oct, 2014 Dizziness 780.4 ; Essential hypertension 401.9 ; Obesity 278.00 ; Hyperlipidemia 272.4 ; Chronic pain 338.29 ; Glaucoma 365.9 and Anxiety 300.00 [facility], [place] [address] [place] [address] [id number]- 2550 Oct, Essential hypertension 401.9 ; Hyperlipidemia 272.4 ; Glaucoma 365.9 ; Obesity 278.00 ; Chronic pain 338.29 and Allergy to insects V15.06 [facility] [place] [id number] [place] [address] 19247- 6659 Sep, [facility] [place] [id number] [place] [address] 52315- 2545 Sep, [facility] [place] [id number] [place] [address] 89104- 1047 Sep, [facility] [place] [id number] [place] [address] 67384- 3968 Sep, [facility] [place] [id number] [place] [address] 76724- 3229 Aug, Essential hypertension 401.9 ; Obesity 278.00 [...] Psychotherapy, patient &/family, 30 minutes, established patient Sep 10, 2017 INSTRUCTIONS MEDICATIONS ADMINISTERED No Known Medications [...]
--- OUTSIDE RECORDS SUMMARY | 2018-02-04 14:33 | XMS REPORT ---
Author Author DALJIT DAMON Organization [facility] Address [address] [place] [address] Care Team Providers Care Transplant Surgeon Name Role Phone LILI DAMONA Unavailable PROBLEMS Type Condition ICD9-CM Code WRE57-KC Code Onset Dates Condition Status SNOMED Code Problem Hyperlipidemia E78.5 Active 25628541 Problem Arrhythmia as indication for cardiac pacemaker replacement I49.9 Active 42043218 Problem Sleep apnea, obstructive G47.33 Active 13056576 Problem Primary insomnia F51.01 Active 4527292 Problem Chronic pain G89.29 Active 92732481 Problem Morbid (severe) obesity due to excess calories E66.01 Active 849996575 Problem Body mass index (BMI) of 40.0-44.9 in adult Z68.41 Active 770213913 Problem Other male erectile dysfunction N52.8 Active 686889498 Problem Supraventricular tachycardia I47.1 Active 9547089 Problem Sarcoidosis D86.9 Active 40533819 Problem HTN (hypertension) I10 Active 96483277 Problem Blindness and low vision H54.10 Active 974666215 Problem Myocarditis, unspecified chronicity, 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 Active 31765970 Problem Migraine without aura and without status migrainosus, not intractable G43.009 Active 033543817 Problem 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 Active 054180327 Problem Problems related to release from penitentiary Z65.2 Active [id number] Problem Chronic pain syndrome G89.4 Active 665098948 Problem Major depressive disorder, recurrent, moderate F33.1 Active 53973593 Problem Open-angle glaucoma of both eyes H40.10X0 Active 74905995 Problem Chronic tension headaches G44.229 Active 383372858 Problem Anxiety F41.9 Active 31746013 Problem Post-traumatic stress disorder, chronic F43.12 Active 890982584 Problem Environmental allergies Z91.09 Active 399525911 Problem Mitral valve prolapse I34.1 Active 856056497 Problem CAD (coronary artery disease) I25.10 Active 65415752 ALLERGIES No Information ENCOUNTERS Encounter Location Date Diagnosis [facility] [id number] [place] [address] 05485- 9626 Nov, [facility] [id number] [place] [address] 22088- 2167 Oct, [facility] [id number] [place] [address] 35422- 0494 Oct, [facility] [id number] [place] [address] 25112- 0464 Oct, [facility] [id number] [place] [address] 08893- 3891 Sep, Arrhythmia as indication for cardiac pacemaker replacement I49.9 [facility] [id number] [place] [address] 82586- 6828 Sep, [facility] [id number] [place] [address] 37558- 4556 Sep, HTN (hypertension) I10 [facility] [id number] [place] [address] 99490- 8442 Sep, [facility] [id number] [place] [address] 06809- 2098 Sep, Body mass index (BMI) of 40.0-44.9 in adult Z68.41 ; Chronic pain G89.29 and Supraventricular tachycardia I47.1 [facility] [id number] [place] [address] 87605- 2448 15 Sep, 2017 [facility] [id number] [place] [address] 97940- 2925 Sep, Sarcoidosis D86.9 [facility] [id number] [place] [address] 37198- 9860 Sep, Sarcoidosis D86.9 [facility] [id number] [place] [address] 83283- 2810 Sep, [facility] [address] [place] [address] 5259 Sep, [facility] [address] [place] [address] 5460 Sep, [facility] [address] [place] [address] 2403 Sep, [facility] [id number] [place] [address] 98725- 2274 Sep, Left leg pain M79.605 [facility] [address] [place] [address] 2850 Sep, HTN (hypertension) I10 [facility] [id number] [place] [address] 37297- 1729 Sep, [facility] [address], [place] [address]- 7946 Sep, Post-traumatic stress disorder, unspecified F43.10 ; Major depressive disorder, recurrent, moderate F33.1 and Problems related to release from penitentiary Z65.2 [facility] [address] [place] [address]- 8666 Sep, [facility] [address] [place] [address] Aug, [facility] [address] [place] [address]- 7935 Aug, Sarcoidosis D86.9 [facility] [address] [place] [address]- 0098 Aug, Sarcoidosis D86.9 [facility] [address] [place] [address]- 1801 Aug, HTN (hypertension) I10 [facility] [id number] [address] 7305 Aug, Post-traumatic stress disorder, unspecified F43.10 ; Major depressive disorder, recurrent, moderate F33.1 and Problems related to release from penitentiary Z65.2 [facility] [id number] [place] [address] 11925- 8012 Aug, [facility] [id number] [place] [address] 09313- 7936 09 Aug, 2017 Left leg pain M79.605 [facility] [id number] [place] [address] 87140- 6266 Jul, Post-traumatic stress disorder, chronic F43.12 ; Anxiety F41.9 ; Problems related to release from penitentiary Z65.2 and BMI 40.0-44.9, adult Z68.41 [facility] [id number] [place] [address] 87688- 3333 20 Jul, 2017 HTN (hypertension) I10 ; Body mass index (BMI) of 40.0-44.9 in adult Z68.41 ; Acute swimmer''s ear of both sides H60.333 and Chronic pain G89.29 [facility] [id number] [place] [address] 27541- 7235 19 Jul, 2017 Glaucoma H40.9 [facility] [id number] [place] [address] 38307- 4334 14 Jul, 2017 [facility] [id number] [place] [address] 07606- 6608 13 Jul, 2017 Sarcoidosis D86.9 [facility] [id number] [place] [address] 77744- 9509 12 Jul, 2017 Left leg pain M79.605 [facility] [id number] [place] [address] 50639- 1250 12 Jul, 2017 Sarcoidosis D86.9 [facility] [id number] [place] [address] 89640- 5494 Jul, Post-traumatic stress disorder, unspecified F43.10 ; Major depressive disorder, recurrent, moderate F33.1 and Problems related to release from penitentiary Z65.2 [facility] [address] [place] [address] 4162 June, [facility] [id number] [address] June, Sore throat J02.9 and BMI 40.0-44.9, adult Z68.41 [facility] [id number] [address]- 4303 June, [facility] [id number] [place] [address] 44109- 8885 June, [facility] [id number] [place] [address] 33009- 4190 June, [facility] [id number] [place] [address] 32913- 4880 June, Left leg pain M79.605 [facility] [id number] [place] [address] 26521- 5435 June, Sarcoidosis D86.9 [facility] [id number] [place] [address] 38551- 8433 June, [facility] [id number] [place] [address] 39891- 5658 June, [facility] [id number] [place] [address] 47037- 4458 June, Left leg pain M79.605 [facility] [id number] [place] [address] 80305- 8875 May, [facility] [id number] [address] 3043 May, [facility] [id number] [place] [address] 43663- 9784 May, [facility] [id number] [address]- 2564 May, Left leg pain M79.605 [facility] [id number] [place] [address] 32709- 2682 May, Post-traumatic stress disorder, unspecified F43.10 ; Major depressive disorder, recurrent, moderate F33.1 and Problems related to release from penitentiary Z65.2 [facility] [id number] [place] [address] 28725- 2821 04 May, 2017 Chronic pain G89.29 ; Anxiety F41.9 ; Chest pain, unspecified type R07.9 and BMI 40.0-44.9, adult Z68.41 [facility] [id number] [place] [address] 05600- 9196 30 Apr, 2017 [facility] [id number] [place] [address] 89388- 3179 29 Apr, 2017 Left leg pain M79.605 [facility] [id number] [place] [address] 58319- 3971 27 Apr, 2017 Post-traumatic stress disorder, unspecified F43.10 ; Problems related to release from penitentiary Z65.2 ; Anxiety F41.9 and BMI 40.0-44.9 , adult Z68.41 [facility] [id number] [place] [address] 93340- 2869 Apr, [facility] [id number] [place] [address] 42674- 9155 Apr, Left leg pain M79.605 [facility] [id number] [place] [address] 84903- 5680 Apr, Post-traumatic stress disorder, unspecified F43.10 ; Major depressive disorder, recurrent, moderate F33.1 and Problems related to release from penitentiary Z65.2 [facility] [id number] [place] [address] 55064- 6627 Apr, [facility] [id number] [place] [address] 48681- 3768 Apr, Chronic pain G89.29 ; 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 ; Morbid (severe) obesity due to excess calories E66.01 ; Anxiety F41.9 and BMI 40.0-44.9, adult Z68.41 [facility] [id number] [place] [address] 25996 -6075 10 Apr, 2017 Sore throat J02.9 and BMI 40.0-44.9, adult Z68.41 [facility] [address] 47679- 4685 02 Apr, 2017 Left leg pain M79.605 [facility] [address] [id number] Mar, Dental examination Z01.20 [facility] [address] 64816- 6509 Mar, [facility] [address] 84063 -0714 Mar, Cough R05 ; Viral gastroenteritis A08.4 and BMI 40.0-44.9, adult Z68.41 [facility] [address] 33146- 0266 Mar, Left leg pain M79.605 [facility] [address] 24185- 2282 06 Mar, 2017 Post-traumatic stress disorder, unspecified F43.10 ; Major depressive disorder, recurrent, moderate F33.1 and Problems related to release from penitentiary Z65.2 [facility] [address] 79819- 7282 Feb, Left leg pain M79.605 [facility] [address] 65043- 0242 Feb, [facility] [address] 65775- 4466 Feb, BMI 40.0-44.9, adult Z68.41 ; Chronic pain syndrome G89.4 ; Migraine without aura and without status migrainosus, not intractable G43.009 ; Mitral valve prolapse I34.1 and 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 [facility] [id number] [place] [address] 14373- 3667 Feb, Post-traumatic stress disorder, chronic F43.12 ; Anxiety F41.9 ; Problems related to release from penitentiary Z65.2 and BMI 40.0-44.9, adult Z68.41 [facility] [address] 00663- 8057 Feb, Post-traumatic stress disorder, unspecified F43.10 ; Major depressive disorder, recurrent, moderate F33.1 and Problems related to release from penitentiary Z65.2 [facility] [address] 74409- 4837 Feb, Left leg pain M79.605 [facility] [address] 29087- 8052 Jan, Post-traumatic stress disorder, unspecified F43.10 ; Major depressive disorder, recurrent, moderate F33.1 and Problems related to release from penitentiary Z65.2 [facility] [address] 67334- 0225 Jan, [facility] [address] 05983- 4556 Jan, [facility] [id number] [place] [address] 30281- 8847 Jan, Anxiety F41.9 [facility] [address] 55863- 4420 Jan, Left leg pain M79.605 [facility] [address] 80520- 2786 Dec, Left leg pain M79.605 [facility] [id number] [place] [address] 31475- 5602 Dec, [facility] [address] 35724- 0681 15 Dec, 2016 Post-traumatic stress disorder, unspecified F43.10 ; Major depressive disorder, recurrent, moderate F33.1 and Problems related to release from penitentiary Z65.2 [facility] [id number] [place] [address] 47094- 8181 Nov, Chronic pain G89.29 and Anxiety F41.9 [facility] [id number] [place] [address] 39964- 3408 Nov, Chronic pain G89.29 and Anxiety F41.9 [facility] [address] 45854- 7975 Nov, Post-traumatic stress disorder, unspecified F43.10 ; Major depressive disorder, recurrent, moderate F33.1 and Problems related to release from penitentiary Z65.2 [facility] [id number] [place] [address] 97973- 3020 09 Nov, 2016 Other abnormal findings in specimens from other organs, systems and tissues R89.8 ; Other male erectile dysfunction N52.8 ; Body mass index (BMI) of 40.0-44.9 in adult Z68.41 and Morbid (severe) obesity due to excess calories E66.01 [facility] [id number] [place] [address] 74847- 9775 02 Nov, 2016 Post-traumatic stress disorder, unspecified F43.10 ; Major depressive disorder, recurrent, moderate F33.1 and Problems related to release from penitentiary Z65.2 [facility] [id number] [place] [address] [id number] Oct, Dental examination Z01.20 [facility] [id number] [place] [address] 84343- 7712 Oct, [facility] [address] 89962- 7811 Oct, Encounter for immunization Z23 [facility] [id number] [place] [address] 36340- 1818 Oct, Chronic pain G89.29 ; Anxiety F41.9 ; Arrhythmia as indication for cardiac pacemaker replacement I49.9 and Glaucoma H40.9 [facility] [id number] [place] [address] 79982- 1708 Oct, Anxiety F41.9 ; Post-traumatic stress disorder, chronic F43.12 and Problems related to release from penitentiary Z65.2 [facility] [id number] [place] [address] 49894- 4726 Oct, Post-traumatic stress disorder, unspecified F43.10 ; Major depressive disorder, recurrent, moderate F33.1 and Problems related to release from penitentiary Z65.2 [facility] [address] 31942- 7120 Sep, Chronic pain G89.29 and Anxiety F41.9 [facility] [id number] [place] [address] 75649- 3710 Sep, Post-traumatic stress disorder, unspecified F43.10 ; Major depressive disorder, recurrent, moderate F33.1 and Problems related to release from penitentiary Z65.2 [facility] [id number] [place] [address] 38101- 2796 Sep, Post-traumatic stress disorder, unspecified F43.10 ; Major depressive disorder, recurrent, moderate F33.1 and Problems related to release from penitentiary Z65.2 [facility] [id number] [place] [address] 62044- 1393 Sep, Chronic pain G89.29 [facility] [id number] [place] [address] 69431- 2690 Aug, Dental caries, unspecified K02.9 [facility] [address] 28978- 8913 Aug, Sleep apnea, obstructive G47.33 ; Obesity E66.9 ; Chronic pain G89.29 ; HTN (hypertension) I10 ; Major depressive disorder, recurrent, moderate F33.1 ; Anxiety F41.9 ; Chronic tension headaches G44.229 ; Mitral valve prolapse I34.1 ; Arrhythmia as indication for cardiac pacemaker replacement I49.9 ; Dental caries, unspecified K02.9 ; Primary insomnia F51.01 and Hyperlipidemia E78.5 [facility] [id number] [place] [address] 62935- 6433 Aug, Post-traumatic stress disorder, unspecified F43.10 ; Major depressive disorder, recurrent, moderate F33.1 and Problems related to release from penitentiary Z65.2 [facility] [id number] [place] [address] 46492- 0811 Aug, Dental examination Z01.20 [facility] [id number] [place] [address] [id number] Aug, Dental examination Z01.20 [facility] [id number] [place] [address] 07982- 1182 Aug, Post-traumatic stress disorder, unspecified F43.10 ; Major depressive disorder, recurrent, moderate F33.1 and Problems related to release from penitentiary Z65.2 [facility] [id number] [place] [address] 97161- 1903 Aug, Chronic pain G89.29 and Primary insomnia F51.01 [facility] [id number] [place] [address] 40839- 9726 Jul, [facility] [id number] [place] [address] 38853- 9393 Jul, [facility] [id number] [place] [address] 16385- 9236 Jul, Nausea R11.0 [facility] [id number] [place] [address] 51724- 8851 Jul, Arrhythmia as indication for cardiac pacemaker replacement I49.9 [facility] [id number] [place] [address] 01930- 3763 Jul, Post-traumatic stress disorder, unspecified F43.10 ; Major depressive disorder, recurrent, moderate F33.1 and Problems related to release from penitentiary Z65.2 [facility] [id number] [place] [address] 64989- 9823 09 Jul, 2016 Anxiety F41.9 [facility] [id number] [place] [address] 65658- 0036 08 Jul, 2016 Chronic pain G89.29 [facility] [id number] [place] [address] 30339- 5124 02 Jul, 2016 Sleep apnea, obstructive G47.33 ; Hyperlipidemia E78.5 ; Chronic pain G89.29 ; Blindness and low vision H54.10 ; Major depressive disorder, recurrent, moderate F33.1 ; Anxiety F41.9 ; Mitral valve prolapse I34.1 ; Arrhythmia as indication for cardiac pacemaker replacement I49.9 ; Primary insomnia F51.01 ; Bilateral headaches R51 and Environmental allergies Z91.09 [facility] [id number] [place] [address] 62489- 2715 Jul, Post-traumatic stress disorder, unspecified F43.10 ; Major depressive disorder, recurrent, moderate F33.1 and Problems related to release from penitentiary Z65.2 [facility] [id number] [place] [address] 70369- 5887 June, Post-traumatic stress disorder, chronic F43.12 ; Anxiety F41.9 ; Problems related to release from penitentiary Z65.2 ; Sleep apnea, obstructive G47.33 and Primary insomnia F51.01 [facility] [id number] [place] [address] 22360- 6339 June, [facility] [id number] [place] [address] 63310- 7834 June, [facility] [id number] [place] [address] 74072- 3691 June, [facility] [id number] [place] [address] 89785- 4434 June, Chronic pain G89.29 [facility] [id number] [place] [address] 65423- 7554 June, Chronic pain G89.29 [facility] [id number] [place] [address] 08147- 4322 June, Lipoma of left lower extremity D17.24 ; Open wound T14.8 and Swelling of left lower extremity M79.89 [facility] [id number] [place] [address] 71559- 1614 June, Post-traumatic stress disorder, unspecified F43.10 ; Major depressive disorder, recurrent, moderate F33.1 and Problems related to release from penitentiary Z65.2 [facility] [id number] [place] [address] 28130- 9586 May, Lipoma of left lower extremity D17.24 ; Major depressive disorder, recurrent, moderate F33.1 ; Sleep apnea, obstructive G47.33 ; Hyperlipidemia E78.5 ; Obesity E66.9 ; HTN (hypertension) I10 ; Glaucoma H40.9 ; CAD (coronary artery disease) I25.10 ; Chronic tension headaches G44.229 ; Chronic pain G89.29 ; Anxiety F41.9 ; Nausea R11.0 and Primary insomnia F51.01 [facility] [id number] [place] [address] 66830- 6686 May, [facility] [id number] [place] [address] 37056- 5380 May, Chronic pain G89.29 [facility] [id number] [place] [address] 68716- 3586 May, [facility] [id number] [place] [address] 60795- 4366 Apr, Post-traumatic stress disorder, unspecified F43.10 ; Major depressive disorder, recurrent, moderate F33.1 and Problems related to release from penitentiary Z65.2 [facility] [id number] [place] [address] 11067- 7935 Apr, Primary insomnia F51.01 ; Post-traumatic stress disorder, chronic F43.12 and Problems related to release from penitentiary Z65.2 [facility] [id number] [place] [address] 49139- 0941 17 Apr, 2016 Post-traumatic stress disorder, unspecified F43.10 ; Major depressive disorder, recurrent, moderate F33.1 and Problems related to release from penitentiary Z65.2 [facility] [id number] [place] [address] 41874- 2153 16 Apr, 2016 [facility] [id number] [place] [address] 17349- 2827 16 Apr, 2016 Sleep apnea, obstructive G47.33 ; Chronic pain G89.29 ; HTN (hypertension) I10 ; Mitral valve prolapse I34.1 ; Shoulder pain, left M25.512 ; Arrhythmia as indication for cardiac pacemaker replacement I49.9 ; Glaucoma H40.9 ; Bilateral headaches R51 ; Environmental allergies Z91.09 ; Primary insomnia F51.01 and Nausea R11.0 [facility] [id number] [place] [address] 21877- 1867 15 Apr, 2016 [facility] [id number] [place] [address] 87199- 3408 15 Apr, 2016 [facility] [id number] [place] [address] 94025- 2000 07 Apr, 2016 Post-traumatic stress disorder, unspecified F43.10 ; Major depressive disorder, recurrent, moderate F33.1 and Problems related to release from penitentiary Z65.2 [facility] [id number] [place] [address] 38693- 0698 07 Apr, 2016 HTN (hypertension) I10 [facility] [id number] [place] [address] [id number] [id number] 07 Apr, 2016 HTN (hypertension) I10 [id number] [place] [address] [phone] 14 Mar, 2016 Chronic pain G89.29 ; Primary insomnia F51.01 and Problems related to release from penitentiary Z65.2 [id number] [place] [address] [address]- [address] Mar, Post-traumatic stress disorder, unspecified F43.10 ; Major depressive disorder, recurrent, moderate F33.1 and Problems related to release from penitentiary Z65.2 [facility] [id number] [place] [address] 83767- 8334 Feb, Post-traumatic stress disorder, unspecified F43.10 ; Major depressive disorder, recurrent, moderate F33.1 and Problems related to release from penitentiary Z65.2 [place] [address] 68604- 2381 Feb, Chronic tension headaches G44.229 [facility] [facility] [address] 98259- 0022 Feb, Sleep apnea, obstructive G47.33 ; Obesity [...] I49.9 and Primary insomnia F51.01 [facility] [id number] [place] [address] 69846- 6717 Feb, Post-traumatic stress disorder, unspecified F43.10 and Chronic pain G89.29 [facility] [id number] [place] [address] 06492- 3422 Feb, [facility] [id number] [place] [address] [id number] Feb, Dental caries K02.9 [place] [address] 14352- 1089 Feb, [place] [facility] [address] 27813- 7929 Feb, Post-traumatic stress disorder, unspecified F43.10 ; Major depressive disorder, recurrent, moderate F33.1 and Problems related to release from penitentiary Z65.2 [place] [address], [place] [address] Jan, Sleep apnea, obstructive G47.33 and Chronic pain G89.29 [facility] [id number] [address] 8264 Jan, [facility] [id number] [place] [address] 02781- 8473 14 Jan, 2016 Dental examination Z01.20 [facility] [id number] [place] [address] 42669- 5125 Jan, [facility] [id number] [place] [address] 22847- 2589 Jan, [facility] [id number] [place] [address] 66914- 0489 Dec, Post-traumatic stress disorder, unspecified F43.10 ; Major depressive disorder, recurrent, moderate F33.1 and Problems related to release from penitentiary Z65.2 [facility] [id number] [place] [address] 88640- 7620 Dec, Encounter for immunization Z23 ; Problems related to release from penitentiary Z65.2 ; Sleep apnea, obstructive G47.33 and Post-traumatic stress disorder, chronic F43.12 [facility] [facility] [address], [place] [address] 18 Dec, 2015 Sleep apnea, obstructive G47.33 ; Hyperlipidemia E78.5 ; Chronic pain G89.29 ; Glaucoma H40.9 ; HTN (hypertension) I10 ; Post-traumatic stress disorder, unspecified F43.10 ; Anxiety F41.9 ; Chronic tension headaches G44.229 ; Mitral valve prolapse I34.1 and CAD (coronary artery disease) I25.10 [facility] [facility] [address], [place] [address] 8179 15 Dec, 2015 Post-traumatic stress disorder, unspecified F43.10 ; Major depressive disorder, recurrent, moderate F33.1 and Problems related to release from penitentiary Z65.2 [facility] [address], [place] [address] 8947 Nov, Chronic pain G89.29 [facility] [id number] [place] [address] 80796- 3300 Nov, Post-traumatic stress disorder, unspecified F43.10 ; Major depressive disorder, recurrent, moderate F33.1 and Problems related to release from penitentiary Z65.2 [facility] [id number] [address] 9290 Oct, [facility] [id number] [place] [address] 56808- 4734 Oct, [facility] [id number] [place] [address] 33960- 6005 Oct, Post-traumatic stress disorder, unspecified F43.10 ; Major depressive disorder, recurrent, moderate F33.1 and Problems related to release from penitentiary Z65.2 [facility] [id number] [place] [address] 13225- 2990 08 Oct, 2015 [facility] [id number] [place] [address] 49972- 2260 07 Oct, 2015 Environmental allergies Z91.09 ; Cough R05 and Open-angle glaucoma of both eyes H40.10X0 [facility] [address], [place] [address]- 7132 Sep, [facility] [id number] [place] [address] 91142- 0365 Sep, Post-traumatic stress disorder, unspecified F43.10 ; Major depressive disorder, recurrent, moderate F33.1 and Problems related to release from penitentiary Z65.2 [facility] [address], [place] [address]- 3961 Sep, Chronic pain G89.29 [facility] [id number] [place] [address] 24187- 6818 Sep, Pain in left shoulder M25.512 ; Pain in right shoulder M25.511 and Other chronic pain G89.29 [facility] [id number] [place] [address] 78811- 6422 Sep, [facility] [id number] [place] [address] 86993- 6792 Sep, [facility] [id number] [place] [address] 80959- 3758 Sep, [facility] [id number] [place] [address] [id number] Aug, Dental examination Z01.20 [facility] [address] 46301- 9840 Aug, Post-traumatic stress disorder, unspecified F43.10 ; Open- angle glaucoma of both eyes H40.10X0 and Problems related to release from penitentiary Z65.2 [facility] [id number] [place] [address] 44004- 5969 Aug, [facility] [id number] [place] [address] 58126- 6895 Aug, Sleep apnea, obstructive G47.33 ; Obesity E66.9 ; Hyperlipidemia E78.5 ; Bilateral headaches R51 ; HTN (hypertension) I10 ; Post- traumatic stress disorder, unspecified F43.10 ; Anxiety F41.9 ; Neuropathy G62.9 ; Glaucoma H40.9 and Chronic pain G89.29 [facility] [id number] [place] [address] [id number] Aug, Encounter for dental examination Z01.20 [facility] [id number] [place] [address] 06514- 6735 Aug, Post-traumatic stress disorder, unspecified F43.10 ; Major depressive disorder, recurrent, moderate F33.1 and Problems related to release from penitentiary Z65.2 [facility] [id number] [place] [address] 09765- 5251 Aug, [place] [address], [place] [address]- 4313 Jul, [facility] [id number] [place] [address] [id number]- 9096 Jul, Post-traumatic stress disorder, unspecified F43.10 and Major depressive disorder, recurrent, moderate F33.1 [facility] [address], [place] [address]- 5099 Jul, [facility] [id number] [place] [address] 71390- 2193 Jul, [facility] [id number] [place] [address] 37838- 9362 Jul, Chronic pain G89.29 [facility] [address], [place] [address]- 6717 June, Post-traumatic stress disorder, unspecified F43.10 and Major depressive disorder, recurrent, moderate F33.1 [facility] [address], [place] [address]- 9117 June, [facility] [id number] [place] [address] 80137- 5611 June, Chronic pain G89.29 [facility] [address], [place] [address]- 0782 June, Post-traumatic stress disorder, unspecified F43.10 and Major depressive disorder, recurrent, moderate F33.1 [facility] [address], [place] [address]- 6599 May, Post-traumatic stress disorder, unspecified F43.10 and Major depressive disorder, recurrent, moderate F33.1 [facility] [id number], [place] [address]- 3053 May, [facility] [id number], [place] [address]- 2499 May, [facility] [id number] [address]- 4365 05 May, 2015 [facility] [id number] [place] [address] 04287- 2490 Apr, [facility] [id number] [place] [address] 52629- 1831 Apr, Post-traumatic stress disorder, unspecified F43.10 and Sleep apnea, obstructive G47.33 [facility] [id number] [place] [address] 89802- 1251 Apr, [facility] [id number] [place] [address] 07724- 0019 Apr, Shoulder pain, left M25.512 [facility] [id number] [place] [address] 77922- 1103 Apr, Post-traumatic stress disorder, unspecified F43.10 and Major depressive disorder, recurrent, moderate F33.1 [facility] [address], [place] [address]- 0403 17 Apr, 2015 [facility] [id number] [place] [address] 36900- 0894 Apr, [facility] [id number] [place] [address]- 2975 08 Apr, 2015 [facility] [id number] [place] [address] 23566- 2084 07 Apr, 2015 Left shoulder pain M25.512 [facility] [address], [place] [address]- 8134 Mar, [facility] [id number] [place] [address] 82773- 5449 Mar, [facility] [address], [place] [address]- 0421 Mar, [facility] [id number] [place] [address] 56675- 9990 Mar, Sleep apnea, obstructive G47.33 ; Obesity E66.9 ; Chronic pain G89.29 ; Hyperlipidemia E78.5 ; HTN (hypertension) I10 ; Blindness and low vision H54.10 ; Major depressive disorder, recurrent, moderate F33.1 and Anxiety F41.9 [facility] [id number] [place] [address] 05055- 3070 Mar, [facility] [address] 75914- 1392 Mar, Post-traumatic stress disorder, unspecified F43.10 and Major depressive disorder, recurrent, moderate F33.1 [facility] [address] 481665- 8951 Mar, [facility] [id number] [place] [address] 79924- 9710 04 Mar, 2015 HTN (hypertension) I10 ; Blindness and low vision H54.10 ; Obesity E66.9 ; Hyperlipidemia E78.5 ; Glaucoma H40.9 ; Chronic pain G89.29 and CAD (coronary artery disease) I25.10 [facility] [id number] [place] [address] 657715- 0314 Feb, [facility] [id number] [place] [address] 91806- 1463 Feb, Post-traumatic stress disorder, unspecified F43.10 ; Obesity E66.9 ; Sleep apnea, obstructive G47.33 and Open-angle glaucoma of both eyes H40.10X0 [facility] [id number] [place] [address] 72478- 4702 Feb, Post-traumatic stress disorder, unspecified F43.10 and Major depressive disorder, recurrent, moderate F33.1 [facility] [id number] [place] [address] 8297 Feb, [facility] [id number] [place] [address] 06372- 4067 Feb, [facility] [id number] [place] [address] 84901- 5410 Feb, HTN (hypertension) I10 ; Post-traumatic stress disorder, unspecified F43.10 ; Blindness and low vision H54.10 ; Obesity E66.9 ; Hyperlipidemia E78.5 ; Chronic pain G89.29 ; Glaucoma H40.9 ; Mitral valve prolapse I34.1 and Bilateral headaches R51 [address] 55844- 4261 Feb, [place] [id number] [place] [address] 27210- 7559 Feb, Post-traumatic stress disorder, unspecified F43.10 and Major depressive disorder, recurrent, moderate F33.1 [place] [id number] [place] [address] 30466- 9331 Feb, [address] 32421- 7904 Feb, [place] [id number] [place] [address] 93484- 8003 Jan, [address] 57901- 8194 Jan, [place] [id number] [place] [address] 06013- 2492 Jan, Obesity E66.9 ; HTN (hypertension) I10 ; Blindness and low vision H54.10 ; Major depressive disorder, recurrent, moderate F33.1 ; Glaucoma H40.9 ; Hyperlipidemia E78.5 ; Sleep apnea, obstructive G47.33 ; Chronic pain G89.29 ; Anxiety F41.9 ; Chronic tension headaches G44.229 and Cough R05 [place] [id number] [place] [address] 49392- 1782 Jan, [place] [id number] [place] [address] 19665- 0449 Jan, [place] [id number]- 9076 Jan, Post-traumatic stress disorder, unspecified F43.10 ; Obesity E66.9 ; Sleep apnea, obstructive G47.33 and Open-angle glaucoma of both eyes H40.10X0 [facility] [id number] [place] [id number]- 7860 Jan, [place] [address]- 1729 Jan, Post-traumatic stress disorder, unspecified F43.10 and Major depressive disorder, recurrent, moderate F33.1 [place] [address]151- 6677 Dec, [place] [address]- 2282 Dec, Sleep apnea, obstructive G47.33 ; Obesity E66.9 ; Hyperlipidemia E78.5 ; Glaucoma H40.9 ; Chronic pain G89.29 ; HTN (hypertension ) I10 ; Blindness and low vision H54.10 ; Anxiety F41.9 and CAD (coronary artery disease) I25.[address] 179496- 6361 Nov, [place] [id number] [place] [address] 54778- 2218 Nov, [address] 94044- 6609 Nov, [address] 54099- 4275 Nov, [address] 00581- 8031 Nov, [address] 34464- 0166 Nov, Encounter for immunization Z23 ; Sleep apnea, obstructive G47.33 ; Obesity E66.9 ; Hyperlipidemia E78.5 ; Glaucoma H40.9 ; Chronic pain G89.29 ; Anxiety F41.9 ; Chronic tension headaches G44.229 and HTN (hypertension ) I10 [facility] [id number] [place] [address] 72443- 2371 Nov, [facility] [id number] [place] [address] 86221- 8150 Nov, [facility] [address] 76154- 7227 Nov, Dizziness R42 [facility] [address] 02709- 9648 Nov, [facility] [address] 51214- 3515 Oct, [facility] [address] 19919- 7126 Oct, [facility] [address] 55883- 8870 Oct, [facility] [address] 21634- 2493 Oct, [facility] [address] 00485- 6971 Oct, Dizziness 780.4 ; Essential hypertension 401.9 ; Obesity 278.00 ; Hyperlipidemia 272.4 ; Chronic pain 338.29 ; Glaucoma 365.9 and Anxiety 300.00 [facility] [id number] [place] [address] 04439- 0008 Oct, Essential hypertension 401.9 ; Hyperlipidemia 272.4 ; Glaucoma 365.9 ; Obesity 278.00 ; Chronic pain 338.29 and Allergy to insects V15.06 [facility] [id number] [place] [address] 46763- 2643 Sep, [facility] [address] 45412- 8879 Sep, [facility] [address] 37531- 8136 Sep, [facility] [address] [facility] [id number] [address]- 1216 Sep, [facility] [address] [facility] [id number] [address]- 0256 Aug, Essential hypertension 401.9 ; Obesity 278.00 [...]
--- OUTSIDE RECORDS SUMMARY | 2018-02-04 14:33 | XMS REPORT ---
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 Name Role Phone ALENA ÁLVAREZ Unavailable PROBLEMS Type Condition ICD9-CM Code OHL05-EY Code Onset Dates Condition Status SNOMED Code Problem Hyperlipidemia E78.5 Active 91599548 Problem Arrhythmia as indication for cardiac pacemaker replacement I49.9 Active 88503164 Problem Sleep apnea, obstructive G47.33 Active 31222715 Problem Primary insomnia F51.01 Active 1010216 Problem Chronic pain G89.29 Active 17213261 Problem Morbid (severe) obesity due to excess calories E66.01 Active 951966194 Problem Body mass index (BMI) of 40.0-44.9 in adult Z68.41 Active 979215540 Problem Other male erectile dysfunction N52.8 Active 245599247 Problem Supraventricular tachycardia I47.1 Active 5391168 Problem Sarcoidosis D86.9 Active 42366052 Problem HTN (hypertension) I10 Active 34168836 Problem Blindness and low vision H54.10 Active 125576020 Problem Myocarditis, unspecified chronicity, 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 Active 39797597 Problem Migraine without aura and without status migrainosus, not intractable G43.009 Active 245207299 Problem 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 Active 059737159 Problem Problems related to release from skilled nursing Z65.2 Active 957432150709361 Problem Chronic pain syndrome G89.4 Active 215459307 Problem Major depressive disorder, recurrent, moderate F33.1 Active 28319327 Problem Open-angle glaucoma of both eyes H40.10X0 Active 31125921 Problem Chronic tension headaches G44.229 Active 062834006 Problem Anxiety F41.9 Active 93430760 Problem Post-traumatic stress disorder, chronic F43.12 Active 453432042 Problem Environmental allergies Z91.09 Active 132026785 Problem Mitral valve prolapse I34.1 Active 944710084 Problem CAD (coronary artery disease) I25.10 Active 45065846 ALLERGIES No Information ENCOUNTERS Encounter Location Date Diagnosis [facility] [id number] [place] [address] 91901- 1088 Nov, [facility] [address] 43972- 3838 Oct, [facility] [address] 31408- 2213 Oct, [place] [address] 61975- 3459 Oct, Left leg pain M79.605 [place] [address] 68235- 5151 04 Oct, 2017 Post-traumatic stress disorder, unspecified F43.10 ; Major depressive disorder, recurrent, moderate F33.1 and Problems related to release from skilled nursing Z65.2 [place] [address] 41659- 5243 Sep, Arrhythmia as indication for cardiac pacemaker replacement I49.9 [place] [address] 85432- 7216 Sep, [place] [address] 05969- 2761 Sep, HTN (hypertension) I10 [place] [id number] [place] [address] 08949- 8547 Sep, [place] [address] 83096- 4447 Sep, Body mass index (BMI) of 40.0-44.9 in adult Z68.41 ; Chronic pain G89.29 and Supraventricular tachycardia I47.1 [facility] [id number] [place] [address] 51556- 3067 Sep, [facility] [address] 02208- 5962 13 Sep, 2017 Sarcoidosis D86.9 [facility] [address] [address] 0478 Sep, Sarcoidosis D86.9 [facility] [id number] [place] [address] 24584- 3836 Sep, [facility] [id number] [place] [address] 67147- 7296 Sep, [facility] [id number] [place] [address] 44928- 8019 Sep, [facility] [id number] [place] [address] 59004- 3901 Sep, [facility] [id number] [place] [address] 11633- 5995 Sep, Left leg pain M79.605 [facility] [id number] [place] [address] 77811- 0226 Sep, HTN (hypertension) I10 [facility] [address] [place] [address] 60217- 5672 Sep, [facility] [id number] [place] [address] 74413- 5968 Sep, Post-traumatic stress disorder, unspecified F43.10 ; Major depressive disorder, recurrent, moderate F33.1 and Problems related to release from skilled nursing Z65.2 [facility] [address] [place] [address] 69297- 7946 Sep, [facility] [address] [address] 2542 Aug, [facility] [id number] [place] [address] 75128- 2558 Aug, Sarcoidosis D86.9 [facility] [address] [address] 2546 Aug, Sarcoidosis D86.9 [facility] [id number] [place] [address] 67196- 5529 30 Aug, 2017 HTN (hypertension) I10 [place] [id number] [place] [address] 56105- 8360 18 Aug, 2017 Post-traumatic stress disorder, unspecified F43.10 ; Major depressive disorder, recurrent, moderate F33.1 and Problems related to release from skilled nursing Z65.2 [place] [address] 36240- 6265 11 Aug, 2017 [place] [address] 74001- 1681 Aug, Left leg pain M79.605 [place] [address] 12808- 9518 26 Jul, 2017 Post-traumatic stress disorder, chronic F43.12 ; Anxiety F41.9 ; Problems related to release from skilled nursing Z65.2 and BMI 40.0-44.9, adult Z68.41 [place] [address] 50962- 4220 20 Jul, 2017 HTN (hypertension) I10 ; Body mass index (BMI) of 40.0-44.9 in adult Z68.41 ; Acute swimmer''s ear of both sides H60.333 and Chronic pain G89.29 [place] [id number] [place] [address] 78967- 2812 19 Jul, 2017 Glaucoma H40.9 [place] [id number] [place] [address] 25034- 8666 14 Jul, 2017 [place] [id number] [place] [address] 73888- 8380 13 Jul, 2017 Sarcoidosis D86.9 [place] [address] 08434- 1894 Jul, Left leg pain M79.605 [place] [address] 54089- 2831 12 Jul, 2017 Sarcoidosis D86.9 [place] [address] [address]- 0406 Jul, Post-traumatic stress disorder, unspecified F43.10 ; Major depressive disorder, recurrent, moderate F33.1 and Problems related to release from skilled nursing Z65.2 [facility] [address] [address]- 8359 June, [facility] [id number] [place] [address] 88151 -6975 June, Sore throat J02.9 and BMI 40.0-44.9, adult Z68.41 [facility] [id number] [place] [address] 96503- 0058 June, [facility] [id number] [place] [address] 79408- 5911 June, [facility] [id number] [place] [address] 01940- 4627 June, [facility] [id number] [place] [address] 15363- 5422 June, Left leg pain M79.605 [facility] [id number] [place] [address] 65018- 0005 June, Sarcoidosis D86.9 [facility] [address] [address]- 5168 June, [facility] [id number] [place] [address] 73944- 6417 June, [facility] [address], [place] [address]- 5025 June, Left leg pain M79.605 [facility] [address] [address]- 2322 May, [facility] [address] [address]- 6418 May, [facility] [address] [address]- 4176 May, [facility] [id number] [place] [address] 73407- 8469 May, Left leg pain M79.605 [facility] [address] [place] [address] 60317- 1757 May, Post-traumatic stress disorder, unspecified F43.10 ; Major depressive disorder, recurrent, moderate F33.1 and Problems related to release from skilled nursing Z65.2 [place] [id number] [place] [address] 56303- 8142 May, Chronic pain G89.29 ; Anxiety F41.9 ; Chest pain, unspecified type R07.9 and BMI 40.0-44.9, adult Z68.41 [place] [id number] [place] [address] 51568- 9112 30 Apr, 2017 [place] [id number] [place] [address] 09465- 8203 Apr, Left leg pain M79.605 [place] [id number] [place] [address] 56305- 3525 27 Apr, 2017 Post-traumatic stress disorder, unspecified F43.10 ; Problems related to release from skilled nursing Z65.2 ; Anxiety F41.9 and BMI 40.0-44.9 , adult Z68.41 [place] [id number] [place] [address] 71066- 1507 Apr, [place] [id number] [place] [address] 86254- 8263 Apr, Left leg pain M79.605 [place] [id number] [place] [address] 03852- 6852 Apr, Post-traumatic stress disorder, unspecified F43.10 ; Major depressive disorder, recurrent, moderate F33.1 and Problems related to release from skilled nursing Z65.2 [place] [address] 26427- 0240 Apr, [facility] [address] 37766- 9782 12 Apr, 2017 Chronic pain G89.29 ; 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 ; Morbid (severe) obesity due to excess calories E66.01 ; Anxiety F41.9 and BMI 40.0-44.9, adult Z68.41 [facility] [address] 92066 -2743 Apr, Sore throat J02.9 and BMI 40.0-44.9, adult Z68.[address] 58689- 4026 02 Apr, 2017 Left leg pain M79.605 [facility] [address] [id number] Mar, Dental examination Z01.20 [place] [address] 64855- 1831 Mar, [facility] [address] [place] [address] 58860 -2707 Mar, Cough R05 ; Viral gastroenteritis A08.4 and BMI 40.0-44.9, adult Z68.41 [place] [address] 31756- 9158 Mar, Left leg pain M79.605 [place] [address] 39617- 9252 06 Mar, 2017 Post-traumatic stress disorder, unspecified F43.10 ; Major depressive disorder, recurrent, moderate F33.1 and Problems related to release from skilled nursing Z65.2 [place] [address] 01534- 2682 Feb, Left leg pain M79.605 [place] [address] 76222- 7424 Feb, [facility] [id number] [place] [address] 89994- 7966 Feb, BMI 40.0-44.9, adult Z68.41 ; Chronic pain syndrome G89.4 ; Migraine without aura and without status migrainosus, not intractable G43.009 ; Mitral valve prolapse I34.1 and 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 [place] [address] 46882- 4464 Feb, Post-traumatic stress disorder, chronic F43.12 ; Anxiety F41.9 ; Problems related to release from skilled nursing Z65.2 and BMI 40.0-44.9, adult Z68.41 [place] [address] 91508- 7114 Feb, Post-traumatic stress disorder, unspecified F43.10 ; Major depressive disorder, recurrent, moderate F33.1 and Problems related to release from skilled nursing Z65.2 [place] [id number] [place] [address] 31915- 9477 Feb, Left leg pain M79.605 [place] [address] 73319- 2621 Jan, Post-traumatic stress disorder, unspecified F43.10 ; Major depressive disorder, recurrent, moderate F33.1 and Problems related to release from skilled nursing Z65.2 [place] [id number] [place] [address] 62637- 6071 Jan, [place] [id number] [place] [address] 92400- 3118 Jan, [place] [id number] [place] [address] 48410- 7466 Jan, Anxiety F41.9 [facility] [id number] [place] [address] 82949- 0828 Jan, Left leg pain M79.605 [place] [address] 69474- 0907 Dec, Left leg pain M79.605 [facility] [address] [place] [address] 02116- 3536 Dec, [facility] [id number] [place] [address] 18849- 9646 Dec, Post-traumatic stress disorder, unspecified F43.10 ; Major depressive disorder, recurrent, moderate F33.1 and Problems related to release from skilled nursing Z65.2 [facility] [id number] [place] [address] 76859- 7391 Nov, Chronic pain G89.29 and Anxiety F41.9 [place] [id number] [place] [address] 77564- 2691 Nov, Chronic pain G89.29 and Anxiety F41.9 [facility] [id number] [place] [address] 23645- 0264 16 Nov, 2016 Post-traumatic stress disorder, unspecified F43.10 ; Major depressive disorder, recurrent, moderate F33.1 and Problems related to release from skilled nursing Z65.2 [facility] [id number] [place] [address] 25726- 2267 09 Nov, 2016 Other abnormal findings in specimens from other organs, systems and tissues R89.8 ; Other male erectile dysfunction N52.8 ; Body mass index (BMI) of 40.0-44.9 in adult Z68.41 and Morbid (severe) obesity due to excess calories E66.01 [facility] [id number] [place] [address] 81255- 6246 02 Nov, 2016 Post-traumatic stress disorder, unspecified F43.10 ; Major depressive disorder, recurrent, moderate F33.1 and Problems related to release from skilled nursing Z65.2 [facility] [address] [place] [address] [id number] Oct, Dental examination Z01.20 [facility] [address] [place] [address] 96643- 3353 Oct, [place] [address] [place] [address] 05555- 6589 28 Oct, 2016 Encounter for immunization Z23 [place] [address] 43484- 5003 Oct, Chronic pain G89.29 ; Anxiety F41.9 ; Arrhythmia as indication for cardiac pacemaker replacement I49.9 and Glaucoma H40.9 [place] [id number] [place] [address] 59802- 7726 Oct, Anxiety F41.9 ; Post-traumatic stress disorder, chronic F43.12 and Problems related to release from skilled nursing Z65.2 [place] [id number] [place] [address] 10610- 0978 07 Oct, 2016 Post-traumatic stress disorder, unspecified F43.10 ; Major depressive disorder, recurrent, moderate F33.1 and Problems related to release from skilled nursing Z65.2 [place] [id number] [place] [address] 65734- 8160 Sep, Chronic pain G89.29 and Anxiety F41.9 [place] [id number] [place] [address] 04632- 9093 Sep, Post-traumatic stress disorder, unspecified F43.10 ; Major depressive disorder, recurrent, moderate F33.1 and Problems related to release from skilled nursing Z65.2 [place] [id number] [place] [address] 63148- 0223 Sep, Post-traumatic stress disorder, unspecified F43.10 ; Major depressive disorder, recurrent, moderate F33.1 and Problems related to release from skilled nursing Z65.2 [place] [id number] [place] [address] 74244- 9944 Sep, Chronic pain G89.29 [place] [id number] [place] [address] 85105- 3628 Aug, Dental caries, unspecified K02.9 [place] [place] [id number] [place] [address] 35107- 6318 Aug, Sleep apnea, obstructive G47.33 ; Obesity E66.9 ; Chronic pain G89.29 ; HTN (hypertension) I10 ; Major depressive disorder, recurrent, moderate F33.1 ; Anxiety F41.9 ; Chronic tension headaches G44.229 ; Mitral valve prolapse I34.1 ; Arrhythmia as indication for cardiac pacemaker replacement I49.9 ; Dental caries, unspecified K02.9 ; Primary insomnia F51.01 and Hyperlipidemia E78.5 [place] [id number] [place] [address] 87842- 8478 Aug, Post-traumatic stress disorder, unspecified F43.10 ; Major depressive disorder, recurrent, moderate F33.1 and Problems related to release from skilled nursing Z65.2 [place] [id number] [place] [address] 36225- 2091 Aug, Dental examination Z01.20 [facility] [address] [id number] Aug, Dental examination Z01.20 [facility] [id number] [place] [address] 82063- 1551 Aug, Post-traumatic stress disorder, unspecified F43.10 ; Major depressive disorder, recurrent, moderate F33.1 and Problems related to release from skilled nursing Z65.2 [place] [id number] [place] [address] 01261- 8955 Aug, Chronic pain G89.29 and Primary insomnia F51.01 [facility] [id number] [place] [address] 00519- 3872 Jul, [facility] [id number] [place] [address] 05580- 5516 Jul, [place] [id number] [place] [address] 60410- 1109 Jul, Nausea R11.0 [facility] [id number] [place] [address] 98531- 8383 29 Abraham, 2017 Arrhythmia as indication for cardiac pacemaker replacement I49.9 [place] [address] [place] [address] 35008- 1170 13 Jul, 2016 Post-traumatic stress disorder, unspecified F43.10 ; Major depressive disorder, recurrent, moderate F33.1 and Problems related to release from skilled nursing Z65.2 [place] [id number] [place] [address] 94430- 1322 09 Jul, 2016 Anxiety F41.9 [place] [address] 90198- 5017 08 Jul, 2016 Chronic pain G89.[address] 11696- 8440 Jul, Sleep apnea, obstructive G47.33 ; Hyperlipidemia E78.5 ; Chronic pain G89.29 ; Blindness and low vision H54.10 ; Major depressive disorder, recurrent, moderate F33.1 ; Anxiety F41.9 ; Mitral valve prolapse I34.1 ; Arrhythmia as indication for cardiac pacemaker replacement I49.9 ; Primary insomnia F51.01 ; Bilateral headaches R51 and Environmental allergies Z91.09 [place] [id number] [place] [address] 68478- 3313 Jul, Post-traumatic stress disorder, unspecified F43.10 ; Major depressive disorder, recurrent, moderate F33.1 and Problems related to release from skilled nursing Z65.2 [place] [id number] [place] [address] 58909- 3073 June, Post-traumatic stress disorder, chronic F43.12 ; Anxiety F41.9 ; Problems related to release from skilled nursing Z65.2 ; Sleep apnea, obstructive G47.33 and Primary insomnia F51.01 [place] [id number] [place] [address] 24239- 3893 June, [place] [id number] [place] [address] 55911- 0018 June, [place] [id number] [place] [address] 19684- 2946 June, [place] [address] [place] [address] 80208- 1059 June, Chronic pain G89.29 [place] [id number] [place] [address] 52903- 7959 June, Chronic pain G89.29 [place] [address] [place] [address] 23328- 7300 June, Lipoma of left lower extremity D17.24 ; Open wound T14.8 and Swelling of left lower extremity M79.89 [place] [id number] [place] [address] 40165- 7305 June, Post-traumatic stress disorder, unspecified F43.10 ; Major depressive disorder, recurrent, moderate F33.1 and Problems related to release from skilled nursing Z65.2 [place] [id number] [place] [address] 19031- 1548 May, Lipoma of left lower extremity D17.24 ; Major depressive disorder, recurrent, moderate F33.1 ; Sleep apnea, obstructive G47.33 ; Hyperlipidemia E78.5 ; Obesity E66.9 ; HTN (hypertension) I10 ; Glaucoma H40.9 ; CAD (coronary artery disease) I25.10 ; Chronic tension headaches G44.229 ; Chronic pain G89.29 ; Anxiety F41.9 ; Nausea R11.0 and Primary insomnia F51.01 [place] [address] [place] [address] 04947- 9216 May, [place] [address] [place] [address] 68862- 5992 May, Chronic pain G89.29 [place] [id number] [place] [address] 43686- 0129 May, [place] [id number] [place] [address] 26554- 1560 Apr, Post-traumatic stress disorder, unspecified F43.10 ; Major depressive disorder, recurrent, moderate F33.1 and Problems related to release from skilled nursing Z65.2 [place] [address] [address]- 1324 Apr, Primary insomnia F51.01 ; Post-traumatic stress disorder, chronic F43.12 and Problems related to release from skilled nursing Z65.2 [place] [id number] [place] [address] 25842- 8336 17 Apr, 2016 Post-traumatic stress disorder, unspecified F43.10 ; Major depressive disorder, recurrent, moderate F33.1 and Problems related to release from skilled nursing Z65.2 [place] [id number] [place] [address] 00441- 7166 16 Apr, 2016 [place] [id number] [place] [address] 39355- 9662 Apr, Sleep apnea, obstructive G47.33 ; Chronic pain G89.29 ; HTN (hypertension) I10 ; Mitral valve prolapse I34.1 ; Shoulder pain, left M25.512 ; Arrhythmia as indication for cardiac pacemaker replacement I49.9 ; Glaucoma H40.9 ; Bilateral headaches R51 ; Environmental allergies Z91.09 ; Primary insomnia F51.01 and Nausea R11.0 [place] [address] [place] [address] 50067- 9358 Apr, [place] [address] [place] [address] 44801- 1182 Apr, [place] [id number] [place] [address] 79610- 3874 Apr, Post-traumatic stress disorder, unspecified F43.10 ; Major depressive disorder, recurrent, moderate F33.1 and Problems related to release from skilled nursing Z65.2 [place] [address] [place] [address] 89350- 5629 Apr, HTN (hypertension) I10 [place] [id number] [place] [address] 03525- 2359 Apr, HTN (hypertension) I10 [place] [address] [place] [address] 86596- 6083 14 Mar, 2016 Chronic pain G89.29 ; Primary insomnia F51.01 and Problems related to release from skilled nursing Z65.2 [facility] [id number] [place] [address] 56718- 5167 07 Mar, 2016 Post-traumatic stress disorder, unspecified F43.10 ; Major depressive disorder, recurrent, moderate F33.1 and Problems related to release from skilled nursing Z65.2 [facility] [id number] [place] [address] 61667- 2039 Feb, Post-traumatic stress disorder, unspecified F43.10 ; Major depressive disorder, recurrent, moderate F33.1 and Problems related to release from skilled nursing Z65.2 [place] [id number] [place] [address] 23617- 5369 Feb, Chronic tension headaches G44.229 [place] [id number] [place] [address] 26662- 1046 Feb, Sleep apnea, obstructive G47.33 ; Obesity [...] I49.9 and Primary insomnia F51.01 [place] [address] [id number] [place] [address] 07008- 1034 17 Feb, 2016 Post-traumatic stress disorder, unspecified F43.10 and Chronic pain G89.29 [place] [id number] [place] [address] 76466- 9859 Feb, [facility] [id number] [place] [address] [id number] Feb, Dental caries K02.9 [place] [id number] [place] [address] 03902- 4667 Feb, [address] 50543- 8805 Feb, Post-traumatic stress disorder, unspecified F43.10 ; Major depressive disorder, recurrent, moderate F33.1 and Problems related to release from skilled nursing Z65.[address] 14141- 1411 Jan, Sleep apnea, obstructive G47.33 and Chronic pain G89.[address] 83295- 0221 Jan, [address] 17120- 9983 Jan, Dental examination Z01.[address] 10582- 1842 Jan, [facility] [address] 31836- 0367 Jan, [address] 54116- 2706 Dec, Post-traumatic stress disorder, unspecified F43.10 ; Major depressive disorder, recurrent, moderate F33.1 and Problems related to release from skilled nursing Z65.[address] 13587- 9627 Dec, Encounter for immunization Z23 ; Problems related to release from skilled nursing Z65.2 ; Sleep apnea, obstructive G47.33 and Post-traumatic stress disorder, chronic F43.[address] 76608- 7985 Dec, Sleep apnea, obstructive G47.33 ; Hyperlipidemia E78.5 ; Chronic pain G89.29 ; Glaucoma H40.9 ; HTN (hypertension) I10 ; Post-traumatic stress disorder, unspecified F43.10 ; Anxiety F41.9 ; Chronic tension headaches G44.229 ; Mitral valve prolapse I34.1 and CAD (coronary artery disease) I25.10 [facility] [id number] [place] [address] 10786- 5376 Dec, Post-traumatic stress disorder, unspecified F43.10 ; Major depressive disorder, recurrent, moderate F33.1 and Problems related to release from skilled nursing Z65.2 [place] [id number] [place] [address] 65737- 4195 Nov, Chronic pain G89.29 [facility] [address] 97125- 0271 Nov, Post-traumatic stress disorder, unspecified F43.10 ; Major depressive disorder, recurrent, moderate F33.1 and Problems related to release from skilled nursing Z65.2 [place] [id number] [place] [address] 35735- 7101 Oct, [facility] [address] 23212- 1738 Oct, [facility] [id number] [place] [address] 36151- 9623 16 Oct, 2015 Post-traumatic stress disorder, unspecified F43.10 ; Major depressive disorder, recurrent, moderate F33.1 and Problems related to release from skilled nursing Z65.2 [facility] [id number] [place] [address] 51368- 3709 08 Oct, 2015 [facility] [id number] [place] [address] 86004- 6018 07 Oct, 2015 Environmental allergies Z91.09 ; Cough R05 and Open-angle glaucoma of both eyes H40.10X0 [facility] [address] 00061- 7938 Sep, [facility] [id number] [place] [address] 49493- 4323 Sep, Post-traumatic stress disorder, unspecified F43.10 ; Major depressive disorder, recurrent, moderate F33.1 and Problems related to release from skilled nursing Z65.2 [facility] [place] [address] [place] [address] 84019- 7810 Sep, Chronic pain G89.29 [facility] [place] [id number] [place] [address] 03395- 9318 Sep, Pain in left shoulder M25.512 ; Pain in right shoulder M25.511 and Other chronic pain G89.29 [facility] [id number] [place] [address] 45094- 5764 Sep, [facility] [id number] [place] [address] 71174- 3759 Sep, [facility] [id number] [place] [address] 20739- 0901 Sep, [facility] [id number] [place] [address] [id number] Aug, Dental examination Z01.20 [place] [id number] [place] [address] 60463- 0355 Aug, Post-traumatic stress disorder, unspecified F43.10 ; Open- angle glaucoma of both eyes H40.10X0 and Problems related to release from skilled nursing Z65.2 [facility] [address] [place] [address] 48725- 0335 Aug, [facility] [id number] [place] [address] 71163- 6210 Aug, Sleep apnea, obstructive G47.33 ; Obesity E66.9 ; Hyperlipidemia E78.5 ; Bilateral headaches R51 ; HTN (hypertension) I10 ; Post- traumatic stress disorder, unspecified F43.10 ; Anxiety F41.9 ; Neuropathy G62.9 ; Glaucoma H40.9 and Chronic pain G89.29 [facility] [id number] [place] [address] [id number] Aug, Encounter for dental examination Z01.20 [facility] [id number] [place] [address] 73784- 5392 Aug, Post-traumatic stress disorder, unspecified F43.10 ; Major depressive disorder, recurrent, moderate F33.1 and Problems related to release from skilled nursing Z65.2 [facility] [address] [address] 5126 Aug, [facility] [address] [address]- 0482 Jul, [facility] [id number] [place] [address] 04487- 0286 Jul, Post-traumatic stress disorder, unspecified F43.10 and Major depressive disorder, recurrent, moderate F33.1 [facility] [id number] [place] [address] 72871- 2755 Jul, [facility] [id number] [place] [address] 26980- 2846 Jul, [facility] [id number] [place] [address] 95487- 2126 Jul, Chronic pain G89.29 [facility] [id number] [place] [address] 76537- 5360 June, Post-traumatic stress disorder, unspecified F43.10 and Major depressive disorder, recurrent, moderate F33.1 [facility] [address] [address]- 3705 June, [facility] [address] [place] [address] 83533- 1455 June, Chronic pain G89.29 [facility] [address] [place] [address] 05868- 6985 June, Post-traumatic stress disorder, unspecified F43.10 and Major depressive disorder, recurrent, moderate F33.1 [facility] [address] [address]- 8263 May, Post-traumatic stress disorder, unspecified F43.10 and Major depressive disorder, recurrent, moderate F33.1 [facility] [address] [address]- 2466 15 May, 2015 [facility] [id number] [place] [address] 93240- 8951 08 May, 2015 [facility] [address] [address]- 7176 May, [facility] [id number] [place] [address] 60016- 6018 Apr, [facility] [id number] [place] [address] 61311- 5531 Apr, Post-traumatic stress disorder, unspecified F43.10 and Sleep apnea, obstructive G47.33 [facility] [address] [place] [address] 81883- 2773 Apr, [facility] [id number] [place] [address] 36789- 8860 Apr, Shoulder pain, left M25.512 [facility] [id number] [place] [address] 87152- 5446 Apr, Post-traumatic stress disorder, unspecified F43.10 and Major depressive disorder, recurrent, moderate F33.1 [facility] [address], [place] [address]- 1078 17 Apr, 2015 [facility] [address] [place] [address] 09056- 4750 Apr, [facility] [address] [address]- 8716 Apr, [facility] [id number] [place] [address] 41776- 5353 07 Apr, 2015 Left shoulder pain M25.512 [facility] [address] [address]- 7236 Mar, [facility] [id number] [place] [address] 15664- 1843 Mar, [facility] [place] [id number] [place] [address] 23804- 9568 Mar, [facility] [place] [id number] [place] [address] 8745 Mar, Sleep apnea, obstructive G47.33 ; Obesity E66.9 ; Chronic pain G89.29 ; Hyperlipidemia E78.5 ; HTN (hypertension) I10 ; Blindness and low vision H54.10 ; Major depressive disorder, recurrent, moderate F33.1 and Anxiety F41.9 [place] [id number] [place] [address] 58892- 5546 Mar, [facility] [place] [id number] [place] [address] 80368- 1826 Mar, Post-traumatic stress disorder, unspecified F43.10 and Major depressive disorder, recurrent, moderate F33.1 [facility] [id number] [place] [address] 39208- 6687 Mar, [facility] [id number] [place] [address] 78702- 2779 Mar, HTN (hypertension) I10 ; Blindness and low vision H54.10 ; Obesity E66.9 ; Hyperlipidemia E78.5 ; Glaucoma H40.9 ; Chronic pain G89.29 and CAD (coronary artery disease) I25.10 [place] [place] [id number] [place] [address] 38717- 8672 Feb, [facility] [id number] [place] [address] 13193- 8696 Feb, Post-traumatic stress disorder, unspecified F43.10 ; Obesity E66.9 ; Sleep apnea, obstructive G47.33 and Open-angle glaucoma of both eyes H40.10X0 [facility] [id number] [place] [address] 44639- 1740 Feb, Post-traumatic stress disorder, unspecified F43.10 and Major depressive disorder, recurrent, moderate F33.1 [facility] [place] [id number] [place] [address] 38086- 5233 Feb, [facility] [address] 52716- 7358 Feb, [facility] [id number] [place] [address] 57741- 0190 Feb, HTN (hypertension) I10 ; Post-traumatic stress disorder, unspecified F43.10 ; Blindness and low vision H54.10 ; Obesity E66.9 ; Hyperlipidemia E78.5 ; Chronic pain G89.29 ; Glaucoma H40.9 ; Mitral valve prolapse I34.1 and Bilateral headaches R51 [facility] [address] 31430- 8946 Feb, [facility] [id number] [place] [address] 24469- 2536 Feb, Post-traumatic stress disorder, unspecified F43.10 and Major depressive disorder, recurrent, moderate F33.1 [facility] [place] [id number] [place] [address] 29588- 3138 Feb, [facility] [address] 94292- 6325 Feb, [facility] [place] [id number] [place] [address] 97038- 9857 Jan, [facility] [place] [id number] [place] [address] 58315- 9101 Jan, [facility] [place] [id number] [place] [address] 07515- 9105 Jan, Obesity E66.9 ; HTN (hypertension) I10 ; Blindness and low vision H54.10 ; Major depressive disorder, recurrent, moderate F33.1 ; Glaucoma H40.9 ; Hyperlipidemia E78.5 ; Sleep apnea, obstructive G47.33 ; Chronic pain G89.29 ; Anxiety F41.9 ; Chronic tension headaches G44.229 and Cough R05 [facility] [place] [id number] [place] [address] 41072- 6526 Jan, [facility] [id number] [place] [address] 42272- 1275 Jan, [facility] [id number] [place] [address] 87880- 0682 Jan, Post-traumatic stress disorder, unspecified F43.10 ; Obesity E66.9 ; Sleep apnea, obstructive G47.33 and Open-angle glaucoma of both eyes H40.10X0 [facility] [id number] [place] [address] 36008- 1950 Jan, [facility] [place] [id number] [place] [address] 60611- 7548 Jan, Post-traumatic stress disorder, unspecified F43.10 and Major depressive disorder, recurrent, moderate F33.1 [facility] [place] [id number] [place] [address] 80097- 0376 Dec, [facility] [id number] [place] [address] 42019- 1529 Dec, Sleep apnea, obstructive G47.33 ; Obesity E66.9 ; Hyperlipidemia E78.5 ; Glaucoma H40.9 ; Chronic pain G89.29 ; HTN (hypertension ) I10 ; Blindness and low vision H54.10 ; Anxiety F41.9 and CAD (coronary artery disease) I25.10 [facility] [place] [id number] [place] [address] 33667- 8560 Nov, [facility] [id number] [place] [address] 87038- 0792 Nov, [facility] [id number] [place] [address] 09848- 6615 Nov, [facility] [address] [place] [address] 85570- 5442 Nov, [facility] [place] [id number] [place] [address] 28386- 6055 Nov, [facility] [id number] [place] [address] 71307- 1613 Nov, Encounter for immunization Z23 ; Sleep apnea, obstructive G47.33 ; Obesity E66.9 ; Hyperlipidemia E78.5 ; Glaucoma H40.9 ; Chronic pain G89.29 ; Anxiety F41.9 ; Chronic tension headaches G44.229 and HTN (hypertension ) I10 [facility] [address] 38951- 4233 Nov, [facility] [address] 18240- 0362 Nov, [facility] [address] 95824- 2354 Nov, Dizziness R42 [facility] [address] 17239- 8316 Nov, [facility] [address] 31514- 8318 Oct, [facility] [address] 05984- 4534 Oct, [facility] [address] 85558- 6921 Oct, [facility] [id number] [place] [address] 17558- 3445 Oct, [facility] [address] 34630- 3686 Oct, Dizziness 780.4 ; Essential hypertension 401.9 ; Obesity 278.00 ; Hyperlipidemia 272.4 ; Chronic pain 338.29 ; Glaucoma 365.9 and Anxiety 300.00 [facility] [id number] [place] [address] 46018- 3629 Oct, Essential hypertension 401.9 ; Hyperlipidemia 272.4 ; Glaucoma 365.9 ; Obesity 278.00 ; Chronic pain 338.29 and Allergy to insects V15.06 [facility] [id number] [place] [address]- 6165 Sep, [facility] [address] [facility] [id number] [place] [address]- 2098 Sep, [facility] [address] [facility] [id number] [place] [address]- 6130 Sep, [facility] [address] [facility] [id number] [address]- 4928 Sep, [facility] [address] [facility] [id number] [place] [address]- 1173 Aug, Essential hypertension 401.9 ; Obesity 278.00 ; Hyperlipidemia 272.4 ; Glaucoma 365.9 ; Lipoma 214.9 ; Mitral valve prolapse 424.0 ; Angina at rest 413.9 ; Lymphedema 457.1 and Chronic pain 338.29 IMMUNIZATIONS No Known Immunizations SOCIAL HISTORY Never Assessed REASON FOR VISIT bp check per [facility] PLAN OF CARE VITAL SIGNS Height 67 in 2017-09-10 Blood pressure systolic 122 mmHg 2017-09-10 Blood pressure diastolic 82 mmHg 2017-09-10 MEDICATIONS Unknown Medications RESULTS No Results PROCEDURES [...]
--- OUTSIDE RECORDS SUMMARY | 2018-02-04 14:34 | XMS REPORT ---
Author Author ALENA ÁLVAREZ [facility] Address [address] [place] [address] Care Team Providers Care Pbx Technician Name Role Phone ALENA ÁLVAREZ Unavailable PROBLEMS Type Condition ICD9-CM Code QQQ48-TM Code Onset Dates Condition Status SNOMED Code Problem Hyperlipidemia E78.5 Active 51701841 Problem Arrhythmia as indication for cardiac pacemaker replacement I49.9 Active 92323252 Problem Sleep apnea, obstructive G47.33 Active 48924675 Problem Primary insomnia F51.01 Active 1833977 Problem Chronic pain G89.29 Active 92855531 Problem Morbid (severe) obesity due to excess calories E66.01 Active 976233619 Problem Body mass index (BMI) of 40.0-44.9 in adult Z68.41 Active 748654380 Problem Other male erectile dysfunction N52.8 Active 782281479 Problem Supraventricular tachycardia I47.1 Active 0185071 Problem Sarcoidosis D86.9 Active 09907364 Problem HTN (hypertension) I10 Active 20691746 Problem Blindness and low vision H54.10 Active 334650103 Problem Myocarditis, unspecified chronicity, 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 Active 00649747 Problem Migraine without aura and without status migrainosus, not intractable G43.009 Active 483354272 Problem 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 Active 890843780 Problem Problems related to release from long term Z65.2 Active [id number] Problem Chronic pain syndrome G89.4 Active 989863690 Problem Major depressive disorder, recurrent, moderate F33.1 Active 39337946 Problem Open-angle glaucoma of both eyes H40.10X0 Active 71382764 Problem Chronic tension headaches G44.229 Active 528197802 Problem Anxiety F41.9 Active 91743656 Problem Post-traumatic stress disorder, chronic F43.12 Active 327266290 Problem Environmental allergies Z91.09 Active 328726784 Problem Mitral valve prolapse I34.1 Active 434136179 Problem CAD (coronary artery disease) I25.10 Active 13013774 ALLERGIES No Information ENCOUNTERS Encounter Location Date Diagnosis [facility] [id number] [place] [address] 02399- 2449 Nov, [facility] [id number] [place] [address] 33595- 8673 Oct, [facility] [id number] [place] [address] 64870- 2629 Oct, [facility] [id number] [place] [address] 18276- 5215 Oct, [facility] [id number] [place] [address] 10637- 0090 Sep, Arrhythmia as indication for cardiac pacemaker replacement I49.9 [facility] [id number] [place] [address] 08975- 3160 Sep, [facility] [id number] [place] [address] 97955- 9376 Sep, HTN (hypertension) I10 [facility] [id number] [place] [address] 72198- 8133 Sep, [facility] [id number] [place] [address] 20935- 5029 Sep, Body mass index (BMI) of 40.0-44.9 in adult Z68.41 ; Chronic pain G89.29 and Supraventricular tachycardia I47.1 [facility] [id number] [place] [address] 22733- 5480 15 Sep, 2017 [facility] [id number] [place] [address] 92759- 5258 Sep, Sarcoidosis D86.9 [facility] [id number] [place] [address] 17832- 7868 Sep, Sarcoidosis D86.9 [facility] [id number] [place] [address] 12481- 4075 Sep, [facility] [address] [place] [address] 5104 Sep, [facility] [address] [place] [address] 4009 Sep, [facility] [address] [place] [address]- 1275 Sep, [facility] [address] [place] [address] 33817- 1720 Sep, Left leg pain M79.605 [facility] [address] [place] [address] 1700 Sep, HTN (hypertension) I10 [facility] [id number] [place] [address] 22648- 6421 Sep, [facility] [address] [address]- 1199 Sep, Post-traumatic stress disorder, unspecified F43.10 ; Major depressive disorder, recurrent, moderate F33.1 and Problems related to release from long term Z65.2 [facility] [address], [place] [address]- 3495 Sep, [facility] [address] [address]- 8126 Aug, [facility] [address], [place] [address]- 1884 Aug, Sarcoidosis D86.9 [facility] [address] [address]- 3618 Aug, Sarcoidosis D86.9 [facility] [address] [place] [address]- 5371 Aug, HTN (hypertension) I10 [facility] [id number] [address]- 2092 Aug, Post-traumatic stress disorder, unspecified F43.10 ; Major depressive disorder, recurrent, moderate F33.1 and Problems related to release from long term Z65.2 [facility] [id number] [place] [address] 77657- 5436 Aug, [facility] [id number] [place] [address] 60065- 7436 09 Aug, 2017 Left leg pain M79.605 [facility] [id number] [place] [address] 55745- 9536 Jul, Post-traumatic stress disorder, chronic F43.12 ; Anxiety F41.9 ; Problems related to release from long term Z65.2 and BMI 40.0-44.9, adult Z68.41 [facility] [id number] [place] [address] 63207- 8144 20 Jul, 2017 HTN (hypertension) I10 ; Body mass index (BMI) of 40.0-44.9 in adult Z68.41 ; Acute swimmer''s ear of both sides H60.333 and Chronic pain G89.29 [facility] [id number] [place] [address] 43160- 9524 19 Jul, 2017 Glaucoma H40.9 [facility] [id number] [place] [address] 80729- 6623 14 Jul, 2017 [facility] [id number] [place] [address] 08587- 6616 13 Jul, 2017 Sarcoidosis D86.9 [facility] [id number] [place] [address] 05615- 9222 12 Jul, 2017 Left leg pain M79.605 [facility] [id number] [place] [address] 80979- 1278 12 Jul, 2017 Sarcoidosis D86.9 [facility] [id number] [place] [address] 69380- 9038 Jul, Post-traumatic stress disorder, unspecified F43.10 ; Major depressive disorder, recurrent, moderate F33.1 and Problems related to release from long term Z65.2 [facility] [facility] [address] [place] [address]- 0136 June, [facility] [id number] [address] June, Sore throat J02.9 and BMI 40.0-44.9, adult Z68.41 [facility] [address] [address]- 0615 June, [facility] [id number] [place] [address] 87499- 0120 June, [facility] [id number] [place] [address] 15986- 4693 June, [facility] [id number] [place] [address] 04522- 1704 June, Left leg pain M79.605 [facility] [id number] [place] [address] 70495- 5747 June, Sarcoidosis D86.9 [facility] [id number] [place] [address] 25829- 7231 June, [facility] [id number] [place] [address] 89452- 3443 June, [facility] [id number] [place] [address] 28512- 0009 June, Left leg pain M79.605 [facility] [id number] [place] [address] 55308- 9281 May, [facility] [id number] [address]- 3468 May, [facility] [id number] [place] [address] 56676- 6627 May, [facility] [address] [address]- 2063 May, Left leg pain M79.605 [facility] [id number] [place] [address] 79632- 2723 May, Post-traumatic stress disorder, unspecified F43.10 ; Major depressive disorder, recurrent, moderate F33.1 and Problems related to release from long term Z65.2 [facility] [id number] [place] [address] 12055- 2630 04 May, 2017 Chronic pain G89.29 ; Anxiety F41.9 ; Chest pain, unspecified type R07.9 and BMI 40.0-44.9, adult Z68.41 [facility] [id number] [place] [address] 01045- 2139 30 Apr, 2017 [facility] [id number] [place] [address] 84112- 2115 29 Apr, 2017 Left leg pain M79.605 [facility] [id number] [place] [address] 59803- 1927 27 Apr, 2017 Post-traumatic stress disorder, unspecified F43.10 ; Problems related to release from long term Z65.2 ; Anxiety F41.9 and BMI 40.0-44.9 , adult Z68.41 [facility] [id number] [place] [address] 43388- 8614 Apr, [facility] [id number] [place] [address] 12801- 2958 Apr, Left leg pain M79.605 [facility] [id number] [place] [address] 52681- 2443 Apr, Post-traumatic stress disorder, unspecified F43.10 ; Major depressive disorder, recurrent, moderate F33.1 and Problems related to release from long term Z65.2 [facility] [id number] [place] [address] 37570- 6597 Apr, [facility] [id number] [place] [address] 34543- 4667 Apr, Chronic pain G89.29 ; 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 ; Morbid (severe) obesity due to excess calories E66.01 ; Anxiety F41.9 and BMI 40.0-44.9, adult Z68.41 [facility] [id number] [place] [address] 37815 -8449 10 Apr, 2017 Sore throat J02.9 and BMI 40.0-44.9, adult Z68.41 [facility] [address] 14143- 1258 02 Apr, 2017 Left leg pain M79.605 [facility] [address] [id number] Mar, Dental examination Z01.20 [place] [facility] [address] 22439- 5350 Mar, [facility] [address] 91456 -0114 Mar, Cough R05 ; Viral gastroenteritis A08.4 and BMI 40.0-44.9, adult Z68.41 [facility] [address] 60873- 7981 Mar, Left leg pain M79.605 [facility] [address] 14831- 8759 06 Mar, 2017 Post-traumatic stress disorder, unspecified F43.10 ; Major depressive disorder, recurrent, moderate F33.1 and Problems related to release from long term Z65.2 [facility] [address] 88916- 7061 Feb, Left leg pain M79.605 [facility] [address] 37766- 2412 Feb, [facility] [address] 45692- 8180 Feb, BMI 40.0-44.9, adult Z68.41 ; Chronic pain syndrome G89.4 ; Migraine without aura and without status migrainosus, not intractable G43.009 ; Mitral valve prolapse I34.1 and 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 [facility] [id number] [place] [address] 89243- 3084 Feb, Post-traumatic stress disorder, chronic F43.12 ; Anxiety F41.9 ; Problems related to release from long term Z65.2 and BMI 40.0-44.9, adult Z68.41 [facility] [address] 58234- 4154 Feb, Post-traumatic stress disorder, unspecified F43.10 ; Major depressive disorder, recurrent, moderate F33.1 and Problems related to release from long term Z65.2 [facility] [address] 97628- 9615 Feb, Left leg pain M79.605 [facility] [address] 59295- 8478 Jan, Post-traumatic stress disorder, unspecified F43.10 ; Major depressive disorder, recurrent, moderate F33.1 and Problems related to release from long term Z65.2 [address] [facility] [address] 40373- 0777 Jan, [facility] [address] 64075- 1707 Jan, [facility] [id number] [place] [address] 37235- 4029 Jan, Anxiety F41.9 [facility] [address] 03737- 2777 Jan, Left leg pain M79.605 [facility] [address] 47562- 8033 Dec, Left leg pain M79.605 [facility] [id number] [place] [address] 34727- 7409 Dec, [facility] [address] 98500- 4315 15 Dec, 2016 Post-traumatic stress disorder, unspecified F43.10 ; Major depressive disorder, recurrent, moderate F33.1 and Problems related to release from long term Z65.2 [facility] [id number] [place] [address] 81242- 5842 Nov, Chronic pain G89.29 and Anxiety F41.9 [facility] [id number] [place] [address] 74417- 5541 Nov, Chronic pain G89.29 and Anxiety F41.9 [facility] [address] 62437- 6921 Nov, Post-traumatic stress disorder, unspecified F43.10 ; Major depressive disorder, recurrent, moderate F33.1 and Problems related to release from long term Z65.2 [facility] [id number] [place] [address] 23827- 1366 09 Nov, 2016 Other abnormal findings in specimens from other organs, systems and tissues R89.8 ; Other male erectile dysfunction N52.8 ; Body mass index (BMI) of 40.0-44.9 in adult Z68.41 and Morbid (severe) obesity due to excess calories E66.01 [facility] [id number] [place] [address] 61358- 4084 02 Nov, 2016 Post-traumatic stress disorder, unspecified F43.10 ; Major depressive disorder, recurrent, moderate F33.1 and Problems related to release from long term Z65.2 [facility] [id number] [place] [address] [id number] Oct, Dental examination Z01.20 [facility] [id number] [place] [address] 35747- 0191 Oct, [facility] [address] 87291- 2442 Oct, Encounter for immunization Z23 [facility] [id number] [place] [address] 96524- 4910 Oct, Chronic pain G89.29 ; Anxiety F41.9 ; Arrhythmia as indication for cardiac pacemaker replacement I49.9 and Glaucoma H40.9 [facility] [id number] [place] [address] 64928- 5143 Oct, Anxiety F41.9 ; Post-traumatic stress disorder, chronic F43.12 and Problems related to release from long term Z65.2 [facility] [id number] [place] [address] 55877- 4397 Oct, Post-traumatic stress disorder, unspecified F43.10 ; Major depressive disorder, recurrent, moderate F33.1 and Problems related to release from long term Z65.2 [facility] [address] 79733- 0857 Sep, Chronic pain G89.29 and Anxiety F41.9 [facility] [id number] [place] [address] 57384- 9003 Sep, Post-traumatic stress disorder, unspecified F43.10 ; Major depressive disorder, recurrent, moderate F33.1 and Problems related to release from long term Z65.2 [facility] [id number] [place] [address] 74164- 8257 Sep, Post-traumatic stress disorder, unspecified F43.10 ; Major depressive disorder, recurrent, moderate F33.1 and Problems related to release from long term Z65.2 [facility] [id number] [place] [address] 10745- 5415 Sep, Chronic pain G89.29 [facility] [id number] [place] [address] 29977- 9855 Aug, Dental caries, unspecified K02.9 [facility] [address] 24653- 6292 Aug, Sleep apnea, obstructive G47.33 ; Obesity E66.9 ; Chronic pain G89.29 ; HTN (hypertension) I10 ; Major depressive disorder, recurrent, moderate F33.1 ; Anxiety F41.9 ; Chronic tension headaches G44.229 ; Mitral valve prolapse I34.1 ; Arrhythmia as indication for cardiac pacemaker replacement I49.9 ; Dental caries, unspecified K02.9 ; Primary insomnia F51.01 and Hyperlipidemia E78.5 [facility] [id number] [place] [address] 00050- 7007 Aug, Post-traumatic stress disorder, unspecified F43.10 ; Major depressive disorder, recurrent, moderate F33.1 and Problems related to release from long term Z65.2 [facility] [id number] [place] [address] 74973- 8892 Aug, Dental examination Z01.20 [facility] [id number] [place] [address] [id number] Aug, Dental examination Z01.20 [facility] [id number] [place] [address] 33067- 5184 Aug, Post-traumatic stress disorder, unspecified F43.10 ; Major depressive disorder, recurrent, moderate F33.1 and Problems related to release from long term Z65.2 [facility] [id number] [place] [address] 58082- 1438 Aug, Chronic pain G89.29 and Primary insomnia F51.01 [facility] [id number] [place] [address] 88837- 5541 Jul, [facility] [id number] [place] [address] 32629- 1593 Jul, [facility] [id number] [place] [address] 63187- 4141 Jul, Nausea R11.0 [facility] [id number] [place] [address] 10108- 8151 Jul, Arrhythmia as indication for cardiac pacemaker replacement I49.9 [facility] [id number] [place] [address] 96708- 2808 Jul, Post-traumatic stress disorder, unspecified F43.10 ; Major depressive disorder, recurrent, moderate F33.1 and Problems related to release from long term Z65.2 [facility] [address] [place] [address] 70789- 4686 09 Jul, 2016 Anxiety F41.9 [facility] [id number] [place] [address] 08426- 6131 08 Jul, 2016 Chronic pain G89.29 [facility] [address] [place] [address] 96482- 5677 02 Jul, 2016 Sleep apnea, obstructive G47.33 ; Hyperlipidemia E78.5 ; Chronic pain G89.29 ; Blindness and low vision H54.10 ; Major depressive disorder, recurrent, moderate F33.1 ; Anxiety F41.9 ; Mitral valve prolapse I34.1 ; Arrhythmia as indication for cardiac pacemaker replacement I49.9 ; Primary insomnia F51.01 ; Bilateral headaches R51 and Environmental allergies Z91.09 [facility] [id number] [place] [address] 46163- 8322 Jul, Post-traumatic stress disorder, unspecified F43.10 ; Major depressive disorder, recurrent, moderate F33.1 and Problems related to release from long term Z65.2 [facility] [id number] [place] [address] 70006- 9636 June, Post-traumatic stress disorder, chronic F43.12 ; Anxiety F41.9 ; Problems related to release from long term Z65.2 ; Sleep apnea, obstructive G47.33 and Primary insomnia F51.01 [facility] [id number] [place] [address] 68684- 0196 June, [facility] [id number] [place] [address] 44505- 1146 June, [facility] [id number] [place] [address] 91319- 0318 June, [facility] [id number] [place] [address] 91096- 6698 June, Chronic pain G89.29 [facility] [id number] [place] [address] 50186- 0024 June, Chronic pain G89.29 [facility] [address] [place] [address] 30885- 6455 June, Lipoma of left lower extremity D17.24 ; Open wound T14.8 and Swelling of left lower extremity M79.89 [facility] [id number] [place] [address] 28271- 7913 June, Post-traumatic stress disorder, unspecified F43.10 ; Major depressive disorder, recurrent, moderate F33.1 and Problems related to release from long term Z65.2 [facility] [id number] [place] [address] 72964- 2215 May, Lipoma of left lower extremity D17.24 ; Major depressive disorder, recurrent, moderate F33.1 ; Sleep apnea, obstructive G47.33 ; Hyperlipidemia E78.5 ; Obesity E66.9 ; HTN (hypertension) I10 ; Glaucoma H40.9 ; CAD (coronary artery disease) I25.10 ; Chronic tension headaches G44.229 ; Chronic pain G89.29 ; Anxiety F41.9 ; Nausea R11.0 and Primary insomnia F51.01 [facility] [id number] [place] [address] 25028- 6037 May, [facility] [id number] [place] [address] 95352- 3966 May, Chronic pain G89.29 [facility] [id number] [place] [address] 32017- 0583 May, [facility] [id number] [place] [address] 94615- 4680 Apr, Post-traumatic stress disorder, unspecified F43.10 ; Major depressive disorder, recurrent, moderate F33.1 and Problems related to release from long term Z65.2 [facility] [address] [place] [address] 39252- 5499 Apr, Primary insomnia F51.01 ; Post-traumatic stress disorder, chronic F43.12 and Problems related to release from long term Z65.2 [facility] [address] [place] [address] 95681- 7419 17 Apr, 2016 Post-traumatic stress disorder, unspecified F43.10 ; Major depressive disorder, recurrent, moderate F33.1 and Problems related to release from long term Z65.2 [facility] [id number] [place] [address] 68611- 8853 16 Apr, 2016 [facility] [id number] [place] [address] 28660- 4856 16 Apr, 2016 Sleep apnea, obstructive G47.33 ; Chronic pain G89.29 ; HTN (hypertension) I10 ; Mitral valve prolapse I34.1 ; Shoulder pain, left M25.512 ; Arrhythmia as indication for cardiac pacemaker replacement I49.9 ; Glaucoma H40.9 ; Bilateral headaches R51 ; Environmental allergies Z91.09 ; Primary insomnia F51.01 and Nausea R11.0 [facility] [id number] [place] [address] 09406- 9959 15 Apr, 2016 [facility] [id number] [place] [address] 97518- 4781 15 Apr, 2016 [facility] [id number] [place] [address] 05320- 7744 07 Apr, 2016 Post-traumatic stress disorder, unspecified F43.10 ; Major depressive disorder, recurrent, moderate F33.1 and Problems related to release from long term Z65.2 [facility] [id number] [place] [address] [phone] 07 Apr, 2016 HTN (hypertension) I10 [place] [address] [place] [id number] [place] [address] [phone] 07 Apr, 2016 HTN (hypertension) I10 [place] [address] [place] [id number] [place] [address] [phone] 14 Mar, 2016 Chronic pain G89.29 ; Primary insomnia F51.01 and Problems related to release from long term Z65.2 [place] [address] [place] [id number] [place] [address] [phone] Mar, Post-traumatic stress disorder, unspecified F43.10 ; Major depressive disorder, recurrent, moderate F33.1 and Problems related to release from long term Z65.2 [place] [address] [place] [id number] [place] [address] [phone] Feb, Post-traumatic stress disorder, unspecified F43.10 ; Major depressive disorder, recurrent, moderate F33.1 and Problems related to release from long term Z65.2 [place] [address] [phone]- [phone] Feb, Chronic tension headaches G44.229 [place] [address] [phone] Feb, Sleep apnea, obstructive G47.33 ; Obesity E66.9 ; Hyperlipidemia E78.5 ; Glaucoma H40.9 ; Chronic pain G89.29 ; HTN (hypertension ) I10 ; Blindness and low vision H54.10 ; Open-angle glaucoma of both eyes H40.10X0 ; Chronic tension headaches G44.229 ; Cough R05 ; CAD (coronary artery disease) I25.10 ; Problems related to release from long term Z65.2 ; Arrhythmia as indication for cardiac pacemaker replacement I49.9 and Primary insomnia F51.01 [place] [facility] [id number] [place] [address] 76288- 6433 Feb, Post-traumatic stress disorder, unspecified F43.10 and Chronic pain G89.29 [place] [id number] [place] [address] 81031- 1339 Feb, [facility] [id number] [place] [address] [id number] Feb, Dental caries K02.9 [place] [address] 0[address]25- 0353 Feb, [place] [address] 93925- 8547 Feb, Post-traumatic stress disorder, unspecified F43.10 ; Major depressive disorder, recurrent, moderate F33.1 and Problems related to release from long term Z65.2 [place] [address], [place] [address] Jan, Sleep apnea, obstructive G47.33 and Chronic pain G89.29 [facility] [facility] [id number] [address] 1733 Jan, [facility] [id number] [place] [address] 95631- 2899 14 Jan, 2016 Dental examination Z01.20 [facility] [id number] [place] [address] 35380- 2787 Jan, [facility] [id number] [place] [address] 40139- 8473 Jan, [facility] [id number] [place] [address] 05091- 2195 Dec, Post-traumatic stress disorder, unspecified F43.10 ; Major depressive disorder, recurrent, moderate F33.1 and Problems related to release from long term Z65.2 [facility] [facility] [id number] [place] [address] 09814- 4642 Dec, Encounter for immunization Z23 ; Problems related to release from long term Z65.2 ; Sleep apnea, obstructive G47.33 and Post-traumatic stress disorder, chronic F43.12 [place] [address], [place] [address] 4969 18 Dec, 2015 Sleep apnea, obstructive G47.33 ; Hyperlipidemia E78.5 ; Chronic pain G89.29 ; Glaucoma H40.9 ; HTN (hypertension) I10 ; Post-traumatic stress disorder, unspecified F43.10 ; Anxiety F41.9 ; Chronic tension headaches G44.229 ; Mitral valve prolapse I34.1 and CAD (coronary artery disease) I25.10 [place] [address] [address] 3701 15 Dec, 2015 Post-traumatic stress disorder, unspecified F43.10 ; Major depressive disorder, recurrent, moderate F33.1 and Problems related to release from long term Z65.2 [facility] [address], [place] [address] 8081 Nov, Chronic pain G89.29 [facility] [id number] [place] [address] 80215- 6055 Nov, Post-traumatic stress disorder, unspecified F43.10 ; Major depressive disorder, recurrent, moderate F33.1 and Problems related to release from long term Z65.2 [facility] [id number] [address] 9143 Oct, [facility] [id number] [place] [address] 83807- 7969 Oct, [facility] [id number] [place] [address] 18117- 1323 Oct, Post-traumatic stress disorder, unspecified F43.10 ; Major depressive disorder, recurrent, moderate F33.1 and Problems related to release from long term Z65.2 [facility] [address] [place] [address] 20734- 4312 08 Oct, 2015 [facility] [id number] [place] [address] 25769- 5055 07 Oct, 2015 Environmental allergies Z91.09 ; Cough R05 and Open-angle glaucoma of both eyes H40.10X0 [facility] [facility] [address], [place] [address]- 6336 Sep, [facility] [id number] [place] [address] 51567- 9673 Sep, Post-traumatic stress disorder, unspecified F43.10 ; Major depressive disorder, recurrent, moderate F33.1 and Problems related to release from long term Z65.2 [facility] [address], [place] [address]- 6842 Sep, Chronic pain G89.29 [facility] [id number] [place] [address] 59041- 3600 Sep, Pain in left shoulder M25.512 ; Pain in right shoulder M25.511 and Other chronic pain G89.29 [facility] [id number] [place] [address] 34987- 3532 Sep, [facility] [id number] [place] [address] 91910- 5745 Sep, [facility] [id number] [place] [address] 04644- 0400 Sep, [facility] [id number] [place] [address] [id number] Aug, Dental examination Z01.20 [place] [address] 99088- 7286 Aug, Post-traumatic stress disorder, unspecified F43.10 ; Open- angle glaucoma of both eyes H40.10X0 and Problems related to release from long term Z65.2 [facility] [id number] [place] [address] 92478- 3474 Aug, [facility] [id number] [place] [address] 29561- 7538 Aug, Sleep apnea, obstructive G47.33 ; Obesity E66.9 ; Hyperlipidemia E78.5 ; Bilateral headaches R51 ; HTN (hypertension) I10 ; Post- traumatic stress disorder, unspecified F43.10 ; Anxiety F41.9 ; Neuropathy G62.9 ; Glaucoma H40.9 and Chronic pain G89.29 [facility] [address] [place] [address] [id number] Aug, Encounter for dental examination Z01.20 [facility] [id number] [place] [address] 46366- 9935 Aug, Post-traumatic stress disorder, unspecified F43.10 ; Major depressive disorder, recurrent, moderate F33.1 and Problems related to release from long term Z65.2 [facility] [facility] [id number] [place] [address] 68250- 9284 Aug, [place] [address], [place] [address]- 9776 Jul, [facility] [address] [place] [address] [id number]- 2837 Jul, Post-traumatic stress disorder, unspecified F43.10 and Major depressive disorder, recurrent, moderate F33.1 [facility] [address], [place] [address]- 8920 Jul, [facility] [id number] [place] [address] 24570- 4648 Jul, [facility] [address] [place] [address] 08903- 6304 Jul, Chronic pain G89.29 [facility] [address], [place] [address]- 4284 June, Post-traumatic stress disorder, unspecified F43.10 and Major depressive disorder, recurrent, moderate F33.1 [facility] [address], [place] [address]- 7221 June, [facility] [address] [place] [address] 52920- 0919 June, Chronic pain G89.29 [facility] [address], [place] [address]- 0197 June, Post-traumatic stress disorder, unspecified F43.10 and Major depressive disorder, recurrent, moderate F33.1 [facility] [address], [place] [address]- 0671 May, Post-traumatic stress disorder, unspecified F43.10 and Major depressive disorder, recurrent, moderate F33.1 [facility] [id number], [place] [address]- 8430 May, [facility] [id number], [place] [address]- 0235 May, [facility] [id number] [address]- 7785 05 May, 2015 [facility] [id number] [place] [address] 55798- 8626 Apr, [facility] [address] [place] [address] 34538- 7276 Apr, Post-traumatic stress disorder, unspecified F43.10 and Sleep apnea, obstructive G47.33 [facility] [id number] [place] [address] 71334- 8960 Apr, [facility] [id number] [place] [address] 35986- 2071 Apr, Shoulder pain, left M25.512 [facility] [id number] [place] [address] 72950- 7215 Apr, Post-traumatic stress disorder, unspecified F43.10 and Major depressive disorder, recurrent, moderate F33.1 [facility] [address], [place] [address]- 9588 17 Apr, 2015 [facility] [id number] [place] [address] 64312- 7185 Apr, [facility] [id number] [address]- 6090 08 Apr, 2015 [facility] [id number] [place] [address] 65506- 9872 07 Apr, 2015 Left shoulder pain M25.512 [facility] [address], [place] [address]- 5332 Mar, [facility] [id number] [place] [address] 94834- 0493 Mar, [facility] [address], [place] [address]- 4039 Mar, [facility] [address] [place] [address] 09201- 4206 Mar, Sleep apnea, obstructive G47.33 ; Obesity E66.9 ; Chronic pain G89.29 ; Hyperlipidemia E78.5 ; HTN (hypertension) I10 ; Blindness and low vision H54.10 ; Major depressive disorder, recurrent, moderate F33.1 and Anxiety F41.9 [facility] [id number] [place] [address] 78143- 6978 Mar, [facility] [address] 08377- 3276 Mar, Post-traumatic stress disorder, unspecified F43.10 and Major depressive disorder, recurrent, moderate F33.1 [facility] [facility] [address] 874803- 4952 Mar, [facility] [id number] [place] [address] 18137- 9736 04 Mar, 2015 HTN (hypertension) I10 ; Blindness and low vision H54.10 ; Obesity E66.9 ; Hyperlipidemia E78.5 ; Glaucoma H40.9 ; Chronic pain G89.29 and CAD (coronary artery disease) I25.10 [facility] [id number] [place] [address] 544968- 5812 Feb, [facility] [id number] [place] [address] 28329- 2201 Feb, Post-traumatic stress disorder, unspecified F43.10 ; Obesity E66.9 ; Sleep apnea, obstructive G47.33 and Open-angle glaucoma of both eyes H40.10X0 [facility] [id number] [place] [address] 52094- 7532 Feb, Post-traumatic stress disorder, unspecified F43.10 and Major depressive disorder, recurrent, moderate F33.1 [facility] [id number] [place] [id number]- 1368 Feb, [facility] [id number] [place] [address] 52153- 0812 Feb, [facility] [id number] [place] [address] 99099- 8661 Feb, HTN (hypertension) I10 ; Post-traumatic stress disorder, unspecified F43.10 ; Blindness and low vision H54.10 ; Obesity E66.9 ; Hyperlipidemia E78.5 ; Chronic pain G89.29 ; Glaucoma H40.9 ; Mitral valve prolapse I34.1 and Bilateral headaches R51 [address] 59748- 3866 Feb, [place] [id number] [place] [address] 98466- 1826 Feb, Post-traumatic stress disorder, unspecified F43.10 and Major depressive disorder, recurrent, moderate F33.1 [place] [id number] [place] [address] 54508- 1287 Feb, [address] 30728- 3814 Feb, [place] [id number] [place] [address] 11888- 7951 Jan, [address] 44261- 6491 Jan, [place] [id number] [place] [address] 98609- 3977 Jan, Obesity E66.9 ; HTN (hypertension) I10 ; Blindness and low vision H54.10 ; Major depressive disorder, recurrent, moderate F33.1 ; Glaucoma H40.9 ; Hyperlipidemia E78.5 ; Sleep apnea, obstructive G47.33 ; Chronic pain G89.29 ; Anxiety F41.9 ; Chronic tension headaches G44.229 and Cough R05 [place] [id number] [place] [address] 82838- 2295 Jan, [place] [id number] [place] [address] 38710- 2810 Jan, [place] [id number]- 5251 Jan, Post-traumatic stress disorder, unspecified F43.10 ; Obesity E66.9 ; Sleep apnea, obstructive G47.33 and Open-angle glaucoma of both eyes H40.10X0 [place] [id number] [place] [address]- 6453 Jan, [place] [address]- 6875 Jan, Post-traumatic stress disorder, unspecified F43.10 and Major depressive disorder, recurrent, moderate F33.1 [place] [address]68807- 3692 Dec, [place] 068808- 5343 Dec, Sleep apnea, obstructive G47.33 ; Obesity E66.9 ; Hyperlipidemia E78.5 ; Glaucoma H40.9 ; Chronic pain G89.29 ; HTN (hypertension ) I10 ; Blindness and low vision H54.10 ; Anxiety F41.9 and CAD (coronary artery disease) I25.[address] 039885- 0561 Nov, [place] [id number] [place] [address] 37257- 3618 Nov, [address] 09979- 8456 Nov, [address] 31963- 7529 Nov, [address] 74299- 1950 Nov, [address] 26172- 1757 Nov, Encounter for immunization Z23 ; Sleep apnea, obstructive G47.33 ; Obesity E66.9 ; Hyperlipidemia E78.5 ; Glaucoma H40.9 ; Chronic pain G89.29 ; Anxiety F41.9 ; Chronic tension headaches G44.229 and HTN (hypertension ) I10 [facility] [id number] [place] [address] 26748- 3989 Nov, [facility] [id number] [place] [address] 07412- 4895 Nov, [facility] [address] 16669- 9407 Nov, Dizziness R42 [facility] [address] 92637- 7274 Nov, [facility] [address] 61881- 9666 Oct, [facility] [address] 22884- 7112 Oct, [facility] [address] 26601- 4650 Oct, [facility] [address] 55954- 2005 Oct, [facility] [address] 36268- 0519 Oct, Dizziness 780.4 ; Essential hypertension 401.9 ; Obesity 278.00 ; Hyperlipidemia 272.4 ; Chronic pain 338.29 ; Glaucoma 365.9 and Anxiety 300.00 [facility] [id number] [place] [address] 65618- 5821 Oct, Essential hypertension 401.9 ; Hyperlipidemia 272.4 ; Glaucoma 365.9 ; Obesity 278.00 ; Chronic pain 338.29 and Allergy to insects V15.06 [facility] [id number] [place] [address] 59451- 8719 Sep, [facility] [address] 69186- 2830 Sep, [facility] [address] 69455- 5196 Sep, [facility] [address] [facility] [id number] [place] [address]- 1096 Sep, [facility] [address] [facility] [id number] [place] [address]- 8646 Aug, Essential hypertension 401.9 ; Obesity 278.00 [...] a day 1 tablet 6h Aug, Active RESULTS No Results PROCEDURES No Known [...]
--- OUTSIDE RECORDS SUMMARY | 2018-02-04 14:35 | XMS REPORT ---
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 Name Role Phone LILI DAMONA Unavailable PROBLEMS Type Condition ICD9-CM Code WBY96-LM Code Onset Dates Condition Status SNOMED Code Problem Hyperlipidemia E78.5 Active 30573308 Problem Arrhythmia as indication for cardiac pacemaker replacement I49.9 Active 19671350 Problem Sleep apnea, obstructive G47.33 Active 23562887 Problem Primary insomnia F51.01 Active 5217412 Problem Chronic pain G89.29 Active 37047378 Problem Morbid (severe) obesity due to excess calories E66.01 Active 905271567 Problem Body mass index (BMI) of 40.0-44.9 in adult Z68.41 Active 477101360 Problem Other male erectile dysfunction N52.8 Active 841532854 Problem Supraventricular tachycardia I47.1 Active 9024120 Problem Sarcoidosis D86.9 Active 90892241 Problem HTN (hypertension) I10 Active 62852109 Problem Blindness and low vision H54.10 Active 132274626 Problem Myocarditis, unspecified chronicity, 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 Active 33862782 Problem Migraine without aura and without status migrainosus, not intractable G43.009 Active 863621087 Problem 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 Active 590102378 Problem Problems related to release from correction Z65.2 Active 151924253098083 Problem Chronic pain syndrome G89.4 Active 810638454 Problem Major depressive disorder, recurrent, moderate F33.1 Active 68150794 Problem Open-angle glaucoma of both eyes H40.10X0 Active 37549347 Problem Chronic tension headaches G44.229 Active 283116068 Problem Anxiety F41.9 Active 41047176 Problem Post-traumatic stress disorder, chronic F43.12 Active 047254464 Problem Environmental allergies Z91.09 Active 858705570 Problem Mitral valve prolapse I34.1 Active 251159792 Problem CAD (coronary artery disease) I25.10 Active 40867928 ALLERGIES No Information ENCOUNTERS Encounter Location Date Diagnosis [facility] [id number] [place] [address] 43650- 2428 Oct, [facility] [id number] [place] [address] 92133- 0411 Oct, [facility] [id number] [place] [address] 89036- 8594 Oct, [facility] [address] 78235- 8086 Sep, Arrhythmia as indication for cardiac pacemaker replacement I49.9 [facility] [address] 83983- 4112 Sep, [facility] [id number] [place] [address] 08904- 7276 Sep, HTN (hypertension) I10 [facility] [id number] [place] [address] 68644- 1826 Sep, [facility] [id number] [place] [address] 19887- 6630 16 Sep, 2017 Body mass index (BMI) of 40.0-44.9 in adult Z68.41 ; Chronic pain G89.29 and Supraventricular tachycardia I47.1 [facility] [id number] [place] [address] 33516- 8868 Sep, [facility] [id number] [place] [address] 13138- 1021 Sep, Sarcoidosis D86.9 [facility] [id number] [place] [address] 63390- 8480 Sep, Sarcoidosis D86.9 [facility] [id number] [place] [address] 33232- 4968 Sep, [facility] [id number] [place] [address] 20526- 0439 Sep, [facility] [address] [address] 0126 Sep, [facility] [id number] [place] [address] 07919- 3526 Sep, [facility] [id number] [place] [address] 33364- 3894 Sep, Left leg pain M79.605 [facility] [id number] [place] [address] 53544- 0003 Sep, HTN (hypertension) I10 [facility] [id number] [place] [address] 25391- 6307 Sep, [facility] [id number] [place] [address] 43973- 1929 Sep, Post-traumatic stress disorder, unspecified F43.10 ; Major depressive disorder, recurrent, moderate F33.1 and Problems related to release from correction Z65.2 [facility] [address] [address]- 3800 Sep, [facility] [id number] [place] [address] 66311- 4690 Aug, [facility] [id number] [place] [address] 71385- 1439 Aug, Sarcoidosis D86.9 [facility] [address] [place] [address]- 7652 Aug, Sarcoidosis D86.9 [facility] [address] [address]- 1279 Aug, HTN (hypertension) I10 [facility] [address] [address]- 3114 Aug, Post-traumatic stress disorder, unspecified F43.10 ; Major depressive disorder, recurrent, moderate F33.1 and Problems related to release from correction Z65.2 [facility] [id number] [place] [address] 94897- 1847 Aug, [facility] [id number] [place] [address] 53980- 9402 Aug, Left leg pain M79.605 [facility] [id number] [place] [address] 82987- 9825 Jul, Post-traumatic stress disorder, chronic F43.12 ; Anxiety F41.9 ; Problems related to release from correction Z65.2 and BMI 40.0-44.9, adult Z68.41 [facility] [address] 06941- 1061 20 Jul, 2017 HTN (hypertension) I10 ; Body mass index (BMI) of 40.0-44.9 in adult Z68.41 ; Acute swimmer''s ear of both sides H60.333 and Chronic pain G89.29 [facility] [address] 45365- 8403 Jul, Glaucoma H40.9 [place] [address] 39083- 0983 14 Jul, 2017 [place] [facility] [address] 80839- 1958 Jul, Sarcoidosis D86.9 [facility] [address] 66244- 1299 Jul, Left leg pain M79.605 [facility] [address] 89471- 3127 Jul, Sarcoidosis D86.9 [facility] [facility] [address] 63979- 9314 Jul, Post-traumatic stress disorder, unspecified F43.10 ; Major depressive disorder, recurrent, moderate F33.1 and Problems related to release from correction Z65.2 [facility] [id number] [place] [address] 57656- 9852 June, [facility] [address] [place] [address] June, Sore throat J02.9 and BMI 40.0-44.9, adult Z68.41 [facility] [id number] [place] [address] 46621- 4132 June, [facility] [id number] [place] [address] 73198- 1636 June, [facility] [id number] [place] [address] 41051- 1792 June, [facility] [id number] [place] [address] 14584- 2975 June, Left leg pain M79.605 [facility] [id number] [place] [address] 25253- 0285 June, Sarcoidosis D86.9 [facility] [id number] [place] [address] 61142- 9821 June, [facility] [id number] [place] [address] 19780- 9335 June, [facility] [id number] [place] [address] 71860- 2725 June, Left leg pain M79.605 [facility] [address] [address]- 0305 May, [facility] [id number] [place] [address] 03217- 1729 May, [facility] [id number] [address]- 1385 May, [facility] [id number] [place] [address] 53464- 8880 May, Left leg pain M79.605 [facility] [address] [address]- 5835 May, Post-traumatic stress disorder, unspecified F43.10 ; Major depressive disorder, recurrent, moderate F33.1 and Problems related to release from correction Z65.2 [facility] [address] [place] [address] 82048- 8026 04 May, 2017 Chronic pain G89.29 ; Anxiety F41.9 ; Chest pain, unspecified type R07.9 and BMI 40.0-44.9, adult Z68.41 [facility] [id number] [place] [address] 36678- 3397 30 Apr, 2017 [facility] [id number] [place] [address] 32263- 8991 29 Apr, 2017 Left leg pain M79.605 [facility] [id number] [place] [address] 69712- 2539 27 Apr, 2017 Post-traumatic stress disorder, unspecified F43.10 ; Problems related to release from correction Z65.2 ; Anxiety F41.9 and BMI 40.0-44.9 , adult Z68.41 [facility] [id number] [place] [address] 74846- 7972 Apr, [facility] [id number] [place] [address] 04503- 1154 19 Apr, 2017 Left leg pain M79.605 [facility] [id number] [place] [address] 43053- 5421 13 Apr, 2017 Post-traumatic stress disorder, unspecified F43.10 ; Major depressive disorder, recurrent, moderate F33.1 and Problems related to release from correction Z65.2 [facility] [address] [place] [address] 32891- 1924 Apr, [facility] [id number] [place] [address] 89913- 0530 12 Apr, 2017 Chronic pain G89.29 ; 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 [id number] [place] [address] [id number] Mar, Dental examination Z01.20 [place] [address] 84295- 3272 Mar, [facility] [address] 26025 -1279 Mar, Cough R05 ; Viral gastroenteritis A08.4 and BMI 40.0-44.9, adult Z68.41 [place] [address] 49725- 8787 Mar, Left leg pain M79.605 [place] [address] 07403- 4560 06 Mar, 2017 Post-traumatic stress disorder, unspecified F43.10 ; Major depressive disorder, recurrent, moderate F33.1 and Problems related to release from correction Z65.2 [facility] [id number] [place] [address] 43415- 2745 Feb, Left leg pain M79.605 [place] [address] 43391- 0745 Feb, [facility] [facility] [address] 08650- 7044 Feb, BMI 40.0-44.9, adult Z68.41 ; Chronic pain syndrome G89.4 ; Migraine without aura and without status migrainosus, not intractable G43.009 ; Mitral valve prolapse I34.1 and 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 [place] [address] 21646- 2282 Feb, Post-traumatic stress disorder, chronic F43.12 ; Anxiety F41.9 ; Problems related to release from correction Z65.2 and BMI 40.0-44.9, adult Z68.41 [facility] [address] [place] [address] 62515- 9186 Feb, Post-traumatic stress disorder, unspecified F43.10 ; Major depressive disorder, recurrent, moderate F33.1 and Problems related to release from correction Z65.2 [facility] [address] [place] [address] 85974- 4571 Feb, Left leg pain M79.605 [facility] [id number] [place] [address] 91078- 4948 Jan, Post-traumatic stress disorder, unspecified F43.10 ; Major depressive disorder, recurrent, moderate F33.1 and Problems related to release from correction Z65.2 [facility] [id number] [place] [address] 96269- 0264 27 Jan, 2017 [facility] [id number] [place] [address] 69673- 4046 Jan, [facility] [id number] [place] [address] 27674- 1176 Jan, Anxiety F41.9 [facility] [id number] [place] [address] 48283- 7379 Jan, Left leg pain M79.605 [facility] [id number] [place] [address] 34985- 4251 Dec, Left leg pain M79.605 [facility] [id number] [place] [address] 17905- 6766 Dec, [facility] [id number] [place] [address] 65162- 6645 Dec, Post-traumatic stress disorder, unspecified F43.10 ; Major depressive disorder, recurrent, moderate F33.1 and Problems related to release from correction Z65.2 [facility] [place] [id number] [place] [address] 09023- 9621 31 Nov, 2016 Chronic pain G89.29 and Anxiety F41.9 [facility] [address] [place] [address]- 9307 24 Nov, 2016 Chronic pain G89.29 and Anxiety F41.9 [address] [id number] [place] [address] 97512- 6196 16 Nov, 2016 Post-traumatic stress disorder, unspecified F43.10 ; Major depressive disorder, recurrent, moderate F33.1 and Problems related to release from correction Z65.2 [id number] [place] [address] 95540- 2511 09 Nov, 2016 Other abnormal findings in specimens from other organs, systems and tissues R89.8 ; Other male erectile dysfunction N52.8 ; Body mass index (BMI) of 40.0-44.9 in adult Z68.41 and Morbid (severe) obesity due to excess calories E66.[address] [place] [address] 04289- 3483 02 Nov, 2016 Post-traumatic stress disorder, unspecified F43.10 ; Major depressive disorder, recurrent, moderate F33.1 and Problems related to release from correction Z65.[address] [facility] [address] [place] [address] [id number] 29 Oct, 2016 Dental examination Z01.20 [facility] [place] [address] [place] [address] 09177- 3181 Oct, [place] [id number] [place] [address] 63129- 0163 Oct, Encounter for immunization Z23 [address] [place] [address] 86264- 1412 26 Oct, 2016 Chronic pain G89.29 ; Anxiety F41.9 ; Arrhythmia as indication for cardiac pacemaker replacement I49.9 and Glaucoma H40.9 [address] [address]- 9823 Oct, Anxiety F41.9 ; Post-traumatic stress disorder, chronic F43.12 and Problems related to release from correction Z65.2 [facility] [id number] [place] [address] 83902- 5408 07 Oct, 2016 Post-traumatic stress disorder, unspecified F43.10 ; Major depressive disorder, recurrent, moderate F33.1 and Problems related to release from correction Z65.2 [facility] [place] [id number] [place] [address] 40579- 7521 Sep, Chronic pain G89.29 and Anxiety F41.9 [id number] [place] [address] 78173- 1550 Sep, Post-traumatic stress disorder, unspecified F43.10 ; Major depressive disorder, recurrent, moderate F33.1 and Problems related to release from correction Z65.2 [facility] [id number] [place] [address] 90301- 4233 Sep, Post-traumatic stress disorder, unspecified F43.10 ; Major depressive disorder, recurrent, moderate F33.1 and Problems related to release from correction Z65.2 [facility] [id number] [place] [address] 71058- 3836 Sep, Chronic pain G89.29 [address] [id number] [place] [address] 71397- 1062 Aug, Dental caries, unspecified K02.[address] [place] [address] 95609- 2847 Aug, Sleep apnea, obstructive G47.33 ; Obesity E66.9 ; Chronic pain G89.29 ; HTN (hypertension) I10 ; Major depressive disorder, recurrent, moderate F33.1 ; Anxiety F41.9 ; Chronic tension headaches G44.229 ; Mitral valve prolapse I34.1 ; Arrhythmia as indication for cardiac pacemaker replacement I49.9 ; Dental caries, unspecified K02.9 ; Primary insomnia F51.01 and Hyperlipidemia E78.5 [facility] [address] [place] [address] 80619- 7067 Aug, Post-traumatic stress disorder, unspecified F43.10 ; Major depressive disorder, recurrent, moderate F33.1 and Problems related to release from correction Z65.2 [facility] [address] [place] [address] 02267- 2654 Aug, Dental examination Z01.[address] [facility] [id number] [place] [address] [id number] Aug, Dental examination Z01.20 [facility] [id number] [place] [address] 731370- 9043 Aug, Post-traumatic stress disorder, unspecified F43.10 ; Major depressive disorder, recurrent, moderate F33.1 and Problems related to release from correction Z65.2 [facility] [id number] [place] [address] 25329- 6763 Aug, Chronic pain G89.29 and Primary insomnia F51.01 [facility] [id number] [place] [address] 12257- 2162 Jul, [facility] [id number] [place] [address] 19197- 9231 Jul, [facility] [id number] [place] [address] 16164- 8331 Jul, Nausea R11.0 [facility] [id number] [place] [address] 68972- 0038 Jul, Arrhythmia as indication for cardiac pacemaker replacement I49.9 [facility] [id number] [place] [address] 64230- 5769 Jul, Post-traumatic stress disorder, unspecified F43.10 ; Major depressive disorder, recurrent, moderate F33.1 and Problems related to release from correction Z65.2 [facility] [id number] [place] [address] 55330- 4536 Jul, Anxiety F41.9 [facility] [id number] [place] [address] 85153- 1761 08 Jul, 2016 Chronic pain G89.29 [facility] [id number] [place] [address] 19277- 3452 Jul, Sleep apnea, obstructive G47.33 ; Hyperlipidemia E78.5 ; Chronic pain G89.29 ; Blindness and low vision H54.10 ; Major depressive disorder, recurrent, moderate F33.1 ; Anxiety F41.9 ; Mitral valve prolapse I34.1 ; Arrhythmia as indication for cardiac pacemaker replacement I49.9 ; Primary insomnia F51.01 ; Bilateral headaches R51 and Environmental allergies Z91.09 [place] [address] 38475- 9137 Jul, Post-traumatic stress disorder, unspecified F43.10 ; Major depressive disorder, recurrent, moderate F33.1 and Problems related to release from correction Z65.2 [place] [address] 66584- 9924 June, Post-traumatic stress disorder, chronic F43.12 ; Anxiety F41.9 ; Problems related to release from correction Z65.2 ; Sleep apnea, obstructive G47.33 and Primary insomnia F51.01 [facility] [id number] [place] [address] 76360- 8532 June, [facility] [id number] [place] [address] 83696- 3020 June, [facility] [place] [id number] [place] [address] 82172- 1220 June, [facility] [id number] [place] [address] 84778- 0473 June, Chronic pain G89.29 [facility] [id number] [place] [address] 38272- 5134 June, Chronic pain G89.29 [place] [address] 40639- 7647 June, Lipoma of left lower extremity D17.24 ; Open wound T14.8 and Swelling of left lower extremity M79.89 [place] [place] [id number] [place] [address] 37344- 4402 June, Post-traumatic stress disorder, unspecified F43.10 ; Major depressive disorder, recurrent, moderate F33.1 and Problems related to release from correction Z65.2 [place] [address] 79656- 2427 May, Lipoma of left lower extremity D17.24 ; Major depressive disorder, recurrent, moderate F33.1 ; Sleep apnea, obstructive G47.33 ; Hyperlipidemia E78.5 ; Obesity E66.9 ; HTN (hypertension) I10 ; Glaucoma H40.9 ; CAD (coronary artery disease) I25.10 ; Chronic tension headaches G44.229 ; Chronic pain G89.29 ; Anxiety F41.9 ; Nausea R11.0 and Primary insomnia F51.01 [place] [id number] [place] [address] 82918- 5785 May, [place] [address] 61674- 3267 May, Chronic pain G89.29 [place] [address] 66445- 5549 May, [place] [id number] [place] [address] 64574- 6827 Apr, Post-traumatic stress disorder, unspecified F43.10 ; Major depressive disorder, recurrent, moderate F33.1 and Problems related to release from correction Z65.2 [place] [id number] [place] [address] 88071- 7126 Apr, Primary insomnia F51.01 ; Post-traumatic stress disorder, chronic F43.12 and Problems related to release from correction Z65.2 [place] [id number] [place] [address] 42240- 4784 Apr, Post-traumatic stress disorder, unspecified F43.10 ; Major depressive disorder, recurrent, moderate F33.1 and Problems related to release from correction Z65.2 [place] [id number] [place] [address] 03225- 9478 16 Apr, 2016 [place] [id number] [place] [address] 30730- 9488 16 Apr, 2016 Sleep apnea, obstructive G47.33 ; Chronic pain G89.29 ; HTN (hypertension) I10 ; Mitral valve prolapse I34.1 ; Shoulder pain, left M25.512 ; Arrhythmia as indication for cardiac pacemaker replacement I49.9 ; Glaucoma H40.9 ; Bilateral headaches R51 ; Environmental allergies Z91.09 ; Primary insomnia F51.01 and Nausea R11.0 [place] [address] [place] [address] [id number] [place] [address] [phone]- [phone] 15 Apr, 2016 [place] [address] [phone]- [phone] Apr, [place] [address] [place] [address] [id number] [place] [address] [phone]- [id number] Apr, Post-traumatic stress disorder, unspecified F43.10 ; Major depressive disorder, recurrent, moderate F33.1 and Problems related to release from correction Z65.2 [place] [id number] [place] [address] [id number]- [phone] 07 Apr, 2016 HTN (hypertension) I10 [place] [address] [place] [id number] [place] [address] [id number]- 1402 Apr, HTN (hypertension) I10 [place] [address] [place] [address] [id number] [place] [address] 69118- 6714 14 Mar, 2016 Chronic pain G89.29 ; Primary insomnia F51.01 and Problems related to release from correction Z65.2 [place] [id number] [place] [address] [id number] [phone] 07 Mar, 2016 Post-traumatic stress disorder, unspecified F43.10 ; Major depressive disorder, recurrent, moderate F33.1 and Problems related to release from correction Z65.2 [facility] [id number] [place] [address] 47696- 7576 Feb, Post-traumatic stress disorder, unspecified F43.10 ; Major depressive disorder, recurrent, moderate F33.1 and Problems related to release from correction Z65.2 [facility] [id number] [place] [address] 71551- 5981 Feb, Chronic tension headaches G44.229 [place] [id number] [place] [address] 46904- 6706 Feb, Sleep apnea, obstructive G47.33 ; Obesity [...] I49.9 and Primary insomnia F51.01 [place] [facility] [id number] [place] [address] 90735- 5814 Feb, Post-traumatic stress disorder, unspecified F43.10 and Chronic pain G89.29 [place] [id number] [place] [address] 74273- 9216 Feb, [facility] [id number] [place] [address] [id number] Feb, Dental caries K02.9 [place] [id number] [place] [address] 07123- 0744 Feb, [place] [id number] [place] [address] 20139- 4331 Feb, Post-traumatic stress disorder, unspecified F43.10 ; Major depressive disorder, recurrent, moderate F33.1 and Problems related to release from correction Z65.2 [place] [facility] [id number] [place] [address] 25921- 7602 Jan, Sleep apnea, obstructive G47.33 and Chronic pain G89.29 [place] [address] [address] 9078 Jan, [facility] [facility] [id number] [place] [address] 63732- 1014 14 Jan, 2016 Dental examination Z01.20 [facility] [facility] [id number] [place] [address] 89959- 2638 09 Jan, 2016 [place] [id number] [place] [address] 75680- 5696 Jan, [place] [id number] [place] [address] 08694- 3370 29 Dec, 2015 Post-traumatic stress disorder, unspecified F43.10 ; Major depressive disorder, recurrent, moderate F33.1 and Problems related to release from correction Z65.2 [place] [id number] [place] [address] 25129- 8646 29 Dec, 2015 Encounter for immunization Z23 ; Problems related to release from correction Z65.2 ; Sleep apnea, obstructive G47.33 and Post-traumatic stress disorder, chronic F43.[address] [place] [address] 01380- 5966 18 Dec, 2015 Sleep apnea, obstructive G47.33 ; Hyperlipidemia E78.5 ; Chronic pain G89.29 ; Glaucoma H40.9 ; HTN (hypertension) I10 ; Post-traumatic stress disorder, unspecified F43.10 ; Anxiety F41.9 ; Chronic tension headaches G44.229 ; Mitral valve prolapse I34.1 and CAD (coronary artery disease) I25.[address] [place] [address] 57131- 2177 15 Dec, 2015 Post-traumatic stress disorder, unspecified F43.10 ; Major depressive disorder, recurrent, moderate F33.1 and Problems related to release from correction Z65.2 [place] [id number] [place] [address] 75778- 4191 Nov, Chronic pain G89.29 [place] [address] [address] 2715 Nov, Post-traumatic stress disorder, unspecified F43.10 ; Major depressive disorder, recurrent, moderate F33.1 and Problems related to release from correction Z65.2 [place] [id number] [place] [address] 79399- 8046 Oct, [facility] [facility] [id number] [place] [address] 86858- 1023 Oct, [place] [facility] [id number] [place] [address] 33822- 7308 Oct, Post-traumatic stress disorder, unspecified F43.10 ; Major depressive disorder, recurrent, moderate F33.1 and Problems related to release from correction Z65.2 [facility] [facility] [id number] [place] [address] 90697- 1929 08 Oct, 2015 [place] [facility] [id number] [place] [address] 09448- 1395 07 Oct, 2015 Environmental allergies Z91.09 ; Cough R05 and Open-angle glaucoma of both eyes H40.10X0 [place] [address] [address] 1973 Sep, [place] [id number] [place] [address] 95113- 6473 Sep, Post-traumatic stress disorder, unspecified F43.10 ; Major depressive disorder, recurrent, moderate F33.1 and Problems related to release from correction Z65.2 [place] [id number] [place] [address] 71213- 1765 Sep, Chronic pain G89.29 [place] [address] [place] [address] 51826- 7547 Sep, Pain in left shoulder M25.512 ; Pain in right shoulder M25.511 and Other chronic pain G89.29 [place] [address] [address]16 Sep, [facility] [id number] [place] [address] 87764- 8653 Sep, [facility] [address] [address] 6[address] Sep, [facility] [id number] [place] [address] [id number] Aug, Dental examination Z01.20 [facility] [id number] [place] [address] 95194- 3800 Aug, Post-traumatic stress disorder, unspecified F43.10 ; Open- angle glaucoma of both eyes H40.10X0 and Problems related to release from correction Z65.2 [place] [id number] [place] [address] 21836- 8489 Aug, [facility] [facility] [id number] [place] [address] 17647- 8920 Aug, Sleep apnea, obstructive G47.33 ; Obesity E66.9 ; Hyperlipidemia E78.5 ; Bilateral headaches R51 ; HTN (hypertension) I10 ; Post- traumatic stress disorder, unspecified F43.10 ; Anxiety F41.9 ; Neuropathy G62.9 ; Glaucoma H40.9 and Chronic pain G89.[address] [facility] [id number] [id number] Aug, Encounter for dental examination Z01.20 [facility] [address] [address] 1992 Aug, Post-traumatic stress disorder, unspecified F43.10 ; Major depressive disorder, recurrent, moderate F33.1 and Problems related to release from correction Z65.2 [facility] [address] [address] 2373 Aug, [facility] [address], [place] [address]- 6108 Jul, [place] [address] [address] 0444 Jul, Post-traumatic stress disorder, unspecified F43.10 and Major depressive disorder, recurrent, moderate F33.1 [facility] [address], [place] [address]- 5227 Jul, [facility] [address], [place] [address]- 3654 Jul, [facility] [id number] [place] [address] 31873- 9899 Jul, Chronic pain G89.29 [facility] [address] [place] [address] 60637- 7760 June, Post-traumatic stress disorder, unspecified F43.10 and Major depressive disorder, recurrent, moderate F33.1 [facility] [address], [place] [address]- 3769 June, [facility] [address], [place] [address]- 8515 June, Chronic pain G89.29 [facility] [address], [place] [address]- 4481 June, Post-traumatic stress disorder, unspecified F43.10 and Major depressive disorder, recurrent, moderate F33.1 [facility] [address], [place] [address]- 4128 May, Post-traumatic stress disorder, unspecified F43.10 and Major depressive disorder, recurrent, moderate F33.1 [facility] [address], [place] [address]- 0200 May, [facility] [address], [place] [address]- 4710 May, [facility] [address], [place] [address]- 5565 May, [facility] [id number] [place] [address] 98079- 1733 Apr, [facility] [id number] [place] [address] 59395- 0424 Apr, Post-traumatic stress disorder, unspecified F43.10 and Sleep apnea, obstructive G47.33 [facility] [id number] [place] [address] 43268- 8893 Apr, [facility] [id number] [place] [address] 37499- 0310 Apr, Shoulder pain, left M25.512 [facility] [id number] [place] [address] 14243- 1755 Apr, Post-traumatic stress disorder, unspecified F43.10 and Major depressive disorder, recurrent, moderate F33.1 [place] [id number] [place] [address] 43697- 8085 Apr, [facility] [id number] [place] [address] 28269- 8927 Apr, [facility] [id number] [place] [address] 61302- 0199 08 Apr, 2015 [facility] [id number] [place] [address] 40798- 7614 Apr, Left shoulder pain M25.512 [facility] [id number] [place] [address] 72369- 3417 Mar, [facility] [id number] [place] [address] 40852- 7567 Mar, [facility] [id number] [place] [address] 31666- 7938 Mar, [facility] [id number] [place] [address] 70207- 4605 Mar, Sleep apnea, obstructive G47.33 ; Obesity E66.9 ; Chronic pain G89.29 ; Hyperlipidemia E78.5 ; HTN (hypertension) I10 ; Blindness and low vision H54.10 ; Major depressive disorder, recurrent, moderate F33.1 and Anxiety F41.9 [place] [id number] [place] [address] 96229- 0398 Mar, [facility] [id number] [place] [address] 83635- 4757 Mar, Post-traumatic stress disorder, unspecified F43.10 and Major depressive disorder, recurrent, moderate F33.1 [place] [id number] [place] [address] 53345- 2923 08 Mar, 2015 [place] [address] 390992- 6146 04 Mar, 2015 HTN (hypertension) I10 ; Blindness and low vision H54.10 ; Obesity E66.9 ; Hyperlipidemia E78.5 ; Glaucoma H40.9 ; Chronic pain G89.29 and CAD (coronary artery disease) I25.10 [place] [id number] [place] [address] 55180- 7849 Feb, [place] [id number] [place] [address] 88714- 4505 Feb, Post-traumatic stress disorder, unspecified F43.10 ; Obesity E66.9 ; Sleep apnea, obstructive G47.33 and Open-angle glaucoma of both eyes H40.10X0 [place] [id number] [place] [address] 90505- 9458 Feb, Post-traumatic stress disorder, unspecified F43.10 and Major depressive disorder, recurrent, moderate F33.1 [place] [id number] [place] [address] 82807- 4845 Feb, [place] [id number] [place] [address] 94292- 2003 Feb, [place] [id number] [place] [address] 76759- 9049 Feb, HTN (hypertension) I10 ; Post-traumatic stress disorder, unspecified F43.10 ; Blindness and low vision H54.10 ; Obesity E66.9 ; Hyperlipidemia E78.5 ; Chronic pain G89.29 ; Glaucoma H40.9 ; Mitral valve prolapse I34.1 and Bilateral headaches R51 [place] [id number] [place] [address] 73416- 0606 Feb, [place] [address] 074153- 1291 Feb, Post-traumatic stress disorder, unspecified F43.10 and Major depressive disorder, recurrent, moderate F33.[address] 297994- 1069 Feb, [place] [id number] [place] [address] 23797- 9605 Feb, [place] [address] 32493- 5175 Jan, [place] [id number] [place] [address] 66539- 8079 Jan, [place] [id number] [place] [address] 94115- 7548 Jan, Obesity E66.9 ; HTN (hypertension) I10 ; Blindness and low vision H54.10 ; Major depressive disorder, recurrent, moderate F33.1 ; Glaucoma H40.9 ; Hyperlipidemia E78.5 ; Sleep apnea, obstructive G47.33 ; Chronic pain G89.29 ; Anxiety F41.9 ; Chronic tension headaches G44.229 and Cough R05 [place] [id number] [place] [address] 55442- 7219 Jan, [place] [id number] [place] [address] 70468- 0045 Jan, [place] [id number] [place] [address] 11321- 8801 Jan, Post-traumatic stress disorder, unspecified F43.10 ; Obesity E66.9 ; Sleep apnea, obstructive G47.33 and Open-angle glaucoma of both eyes H40.10X0 [address] [id number] [place] [address]- 1443 Jan, [place] [id number]- 5894 Jan, Post-traumatic stress disorder, unspecified F43.10 and Major depressive disorder, recurrent, moderate F33.[address] 92611- 6168 Dec, [address] 70012- 2433 Dec, Sleep apnea, obstructive G47.33 ; Obesity E66.9 ; Hyperlipidemia E78.5 ; Glaucoma H40.9 ; Chronic pain G89.29 ; HTN (hypertension ) I10 ; Blindness and low vision H54.10 ; Anxiety F41.9 and CAD (coronary artery disease) I25.10 [place] [id number] [place] [address] 70461- 4254 Nov, [address] 11936- 5213 Nov, [address] 47119- 3197 Nov, [address] 22006- 0787 Nov, [place] [id number] [place] [address] 52754- 5099 Nov, [address] 29360- 1556 Nov, Encounter for immunization Z23 ; Sleep apnea, obstructive G47.33 ; Obesity E66.9 ; Hyperlipidemia E78.5 ; Glaucoma H40.9 ; Chronic pain G89.29 ; Anxiety F41.9 ; Chronic tension headaches G44.229 and HTN (hypertension ) I10 [place] [id number], [place] [address]- 9091 19 Nov, 2014 [facility] [id number] [place] [address] 26285- 4532 14 Nov, 2014 [facility] [id number] [place] [address] 26348- 8081 06 Nov, 2014 Dizziness R42 [facility] [id number] [place] [address] 43409- 0402 Nov, [facility] [id number] [place] [address] 71834- 0393 29 Oct, 2014 [facility] [id number] [place] [address] 06874- 9176 28 Oct, 2014 [facility] [id number] [place] [address] 40799- 7887 Oct, [facility] [id number] [place] [address] 46514- 8160 Oct, [facility] [address] [place] [address] 37308- 0344 17 Oct, 2014 Dizziness 780.4 ; Essential hypertension 401.9 ; Obesity 278.00 ; Hyperlipidemia 272.4 ; Chronic pain 338.29 ; Glaucoma 365.9 and Anxiety 300.00 [facility] [address] [place] [address] 19034- 7682 Oct, Essential hypertension 401.9 ; Hyperlipidemia 272.4 ; Glaucoma 365.9 ; Obesity 278.00 ; Chronic pain 338.29 and Allergy to insects V15.06 [facility] [address] [place] [address]- 0156 Sep, [facility] [id number] [place] [address] 49358- 4911 Sep, [facility] [address] [place] [address]- 0337 Sep, [facility] [id number] [place] [address] 71462- 2576 Sep, [facility] [address] [facility] [id number] [place] [address]- 9136 Aug, Essential hypertension 401.9 ; Obesity 278.00 ; Hyperlipidemia 272.4 ; Glaucoma 365.9 ; Lipoma 214.9 ; Mitral valve prolapse 424.0 ; Angina at rest 413.9 ; Lymphedema 457.1 and Chronic pain 338.29 IMMUNIZATIONS No Known Immunizations SOCIAL HISTORY Never Assessed REASON FOR VISIT f/u WB-MA PLAN OF CARE Activity Details Follow Up 3m Reason: VITAL SIGNS Height 67 in 2017-08-03 Weight 264.7 lbs 2017-08-03 Heart Rate 88 bpm 2017-08-03 Respiratory Rate 20 2017-08-03 BMI 41.45 kg/m2 2017-08-03 Blood pressure systolic 138 mmHg 2017-08-03 Blood pressure diastolic 94 mmHg 2017-08-03 MEDICATIONS Medication Instructions Dosage Frequency Start Date End Date Duration Status Atorvastatin Calcium 20 MG TAKE ONE TABLET BY MOUTH ONCE DAILY 90 Active Ciprofloxacin HCl 0.3 % Intratympanic 3 times a day 2 drops into ears bilaterally 8h Jul, Aug, 14 days Active Metoprolol Succinate ER 200 mg Orally Once a day 1 tablet 24h 90 days Active Topamax 100 MG TAKE ONE TABLET BY MOUTH TWICE DAILY 90 Active Methotrexate 2.5 MG 3 tablets once for one week then 4 tablets once for 2 weeks then 6 tablets q7days there after Active Gabapentin 300 MG TAKE ONE CAPSULE BY MOUTH TWICE DAILY 90 Not- Taking Oxycodone HCl 5 mg Orally Once a day 1 tablet 24h June, Not- Taking EPINEPHrine 0.3 MG/0.3ML as directed Jul, Active Cymbalta 30 MG Orally Once a day 1 capsule 24h Active Hydrocodone-Acetaminophen 7.5-325 MG Orally 4 times a day 1 tablet 6h 13 Jul, 2017 Active Timolol Hemihydrate 0.5 % Ophthalmic 2 times a day 1 drop into both eyes 12h Dec, Active Benzonatate 100 MG Orally Three times a day 1 capsule as needed 8h Active Cartia XT 300 MG Orally Once a day 1 capsule 24h 90 days Active Xanax 1 MG Orally Twice a day for anxiety 1 tablet Active Zofran ODT 4 MG Orally every 8 hrs prn 1 tablet on the tongue and allow to dissolve 10 Not-Taking Nitrostat 0.4 MG Sublingual every 5 minutes x 3 PRN 1 tablet 30 days Active Folic Acid 1 MG Orally Once a day 1 tablet 24h Active RESULTS No Results PROCEDURES No Known [...]
--- OUTSIDE RECORDS SUMMARY | 2018-02-04 14:36 | XMS REPORT ---
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 Role Phone ALENA ÁLVAREZ Unavailable PROBLEMS Type Condition ICD9-CM Code ZVY66-NP Code Onset Dates Condition Status SNOMED Code Problem Hyperlipidemia E78.5 Active 59988353 Problem Arrhythmia as indication for cardiac pacemaker replacement I49.9 Active 75874104 Problem Sleep apnea, obstructive G47.33 Active 71353835 Problem Primary insomnia F51.01 Active 1904219 Problem Chronic pain G89.29 Active 18542278 Problem Morbid (severe) obesity due to excess calories E66.01 Active 148732873 Problem Body mass index (BMI) of 40.0-44.9 in adult Z68.41 Active 318542614 Problem Other male erectile dysfunction N52.8 Active 763881932 Problem Supraventricular tachycardia I47.1 Active 2326124 Problem Sarcoidosis D86.9 Active 41356069 Problem HTN (hypertension) I10 Active 86032891 Problem Blindness and low vision H54.10 Active 132545539 Problem Myocarditis, unspecified chronicity, 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 Active 68747785 Problem Migraine without aura and without status migrainosus, not intractable G43.009 Active 387684733 Problem 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 Active 009238154 Problem Problems related to release from group home Z65.2 Active 271960688286143 Problem Chronic pain syndrome G89.4 Active 952912782 Problem Major depressive disorder, recurrent, moderate F33.1 Active 53065879 Problem Open-angle glaucoma of both eyes H40.10X0 Active 52322856 Problem Chronic tension headaches G44.229 Active 938875057 Problem Anxiety F41.9 Active 47356429 Problem Post-traumatic stress disorder, chronic F43.12 Active 069327646 Problem Environmental allergies Z91.09 Active 882699267 Problem Mitral valve prolapse I34.1 Active 265109966 Problem CAD (coronary artery disease) I25.10 Active 28661848 ALLERGIES No Information ENCOUNTERS Encounter Location Date Diagnosis [facility] [id number] [place] [address] 28538- 0280 Oct, [facility] [id number] [place] [address] 96914- 0591 Oct, [facility] [id number] [place] [address] 84847- 2031 Oct, [facility] [address] 54769- 5092 Sep, Arrhythmia as indication for cardiac pacemaker replacement I49.9 [facility] [address] 00767- 4623 Sep, [facility] [id number] [place] [address] 84678- 3904 Sep, HTN (hypertension) I10 [facility] [id number] [place] [address] 78645- 4606 Sep, [facility] [id number] [place] [address] 06347- 8948 16 Sep, 2017 Body mass index (BMI) of 40.0-44.9 in adult Z68.41 ; Chronic pain G89.29 and Supraventricular tachycardia I47.1 [facility] [id number] [place] [address] 26118- 1827 Sep, [facility] [id number] [place] [address] 06698- 5107 Sep, Sarcoidosis D86.9 [facility] [id number] [place] [address] 90624- 9615 Sep, Sarcoidosis D86.9 [facility] [id number] [place] [address] 42556- 3422 Sep, [facility] [id number] [place] [address] 82086- 2492 Sep, [facility] [id number] [address] 2763 Sep, [facility] [id number] [place] [address] 15425- 8256 Sep, [facility] [id number] [place] [address] 15035- 6386 Sep, Left leg pain M79.605 [facility] [id number] [place] [address] 15987- 0519 Sep, HTN (hypertension) I10 [facility] [id number] [place] [address] 17854- 3877 Sep, [facility] [id number] [place] [address] 39528- 6480 Sep, Post-traumatic stress disorder, unspecified F43.10 ; Major depressive disorder, recurrent, moderate F33.1 and Problems related to release from group home Z65.2 [facility] [id number] [address]- 1199 Sep, [facility] [id number] [place] [address] 12401- 6123 Aug, [facility] [id number] [place] [address] 69675- 5261 Aug, Sarcoidosis D86.9 [facility] [id number] [address]- 2455 Aug, Sarcoidosis D86.9 [facility] [id number] [address]- 2339 Aug, HTN (hypertension) I10 [facility] [id number] [address]- 2250 Aug, Post-traumatic stress disorder, unspecified F43.10 ; Major depressive disorder, recurrent, moderate F33.1 and Problems related to release from group home Z65.2 [facility] [id number] [place] [address] 38270- 5794 Aug, [facility] [id number] [place] [address] 64677- 1274 Aug, Left leg pain M79.605 [facility] [address] 48196- 5087 Jul, Post-traumatic stress disorder, chronic F43.12 ; Anxiety F41.9 ; Problems related to release from group home Z65.2 and BMI 40.0-44.9, adult Z68.41 [facility] [address] 21006- 5680 20 Jul, 2017 HTN (hypertension) I10 ; Body mass index (BMI) of 40.0-44.9 in adult Z68.41 and Acute swimmer''s ear of both sides H60.333 [place] [facility] [address] 04586- 9153 19 Jul, 2017 Glaucoma H40.9 [facility] [address] 34259- 4281 14 Jul, 2017 [facility] [address] 98550- 3858 13 Jul, 2017 Sarcoidosis D86.9 [facility] [address] 37772- 7520 Jul, Left leg pain M79.605 [place] [facility] [address] 90648- 1675 Jul, Sarcoidosis D86.9 [facility] [address] 62105- 7754 Jul, Post-traumatic stress disorder, unspecified F43.10 ; Major depressive disorder, recurrent, moderate F33.1 and Problems related to release from group home Z65.2 [facility] [address] 48611- 3980 June, [facility] [address] 26722 -3435 June, Sore throat J02.9 and BMI 40.0-44.9, adult Z68.41 [facility] [id number] [place] [address] 79487- 1114 June, [facility] [id number] [place] [address] 88886- 6858 June, [facility] [id number] [place] [address] 45152- 0410 June, [facility] [id number] [place] [address] 50722- 7516 June, Left leg pain M79.605 [facility] [id number] [place] [address] 54877- 5146 June, Sarcoidosis D86.9 [facility] [id number] [place] [address] 69835- 6887 June, [facility] [id number] [place] [address] 43096- 6242 June, [facility] [id number] [place] [address] 11648- 6728 June, Left leg pain M79.605 [facility] [id number] [place] [address] 34140- 8661 May, [facility] [id number] [place] [address] 47279- 8765 May, [facility] [id number] [place] [address] 08053- 9138 May, [facility] [id number] [place] [address] 75375- 6148 May, Left leg pain M79.605 [facility] [id number] [place] [address] 32945- 0084 May, Post-traumatic stress disorder, unspecified F43.10 ; Major depressive disorder, recurrent, moderate F33.1 and Problems related to release from group home Z65.2 [facility] [id number] [place] [address] 76470- 5073 May, Chronic pain G89.29 ; Anxiety F41.9 ; Chest pain, unspecified type R07.9 and BMI 40.0-44.9, adult Z68.41 [place] [facility] [address] 05032- 9897 30 Apr, 2017 [facility] [id number] [place] [address] 05773- 8806 29 Apr, 2017 Left leg pain M79.605 [place] [address] 54551- 6117 27 Apr, 2017 Post-traumatic stress disorder, unspecified F43.10 ; Problems related to release from group home Z65.2 ; Anxiety F41.9 and BMI 40.0-44.9 , adult Z68.41 [facility] [id number] [place] [address] 39155- 9920 Apr, [facility] [id number] [place] [address] 32449- 8213 Apr, Left leg pain M79.605 [facility] [id number] [place] [address] 10033- 3071 13 Apr, 2017 Post-traumatic stress disorder, unspecified F43.10 ; Major depressive disorder, recurrent, moderate F33.1 and Problems related to release from group home Z65.2 [facility] [id number] [place] [address] 68096- 4873 Apr, [facility] [id number] [place] [address] 97895- 3926 Apr, Chronic pain G89.29 ; 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 ; Morbid (severe) obesity due to excess calories E66.01 ; Anxiety F41.9 and BMI 40.0-44.9, adult Z68.41 [facility] [id number] [place] [address] 29643 -4026 Apr, Sore throat J02.9 and BMI 40.0-44.9, adult Z68.41 [place] [address] 32379- 8526 Apr, Left leg pain M79.605 [facility] [id number] [place] [address] [id number] Mar, Dental examination Z01.20 [facility] [address] 31257- 4328 Mar, [facility] [address] 68238 -3663 Mar, Cough R05 ; Viral gastroenteritis A08.4 and BMI 40.0-44.9, adult Z68.41 [place] [address] 18562- 8153 Mar, Left leg pain M79.605 [place] [facility] [id number] [place] [address] 24768- 7857 06 Mar, 2017 Post-traumatic stress disorder, unspecified F43.10 ; Major depressive disorder, recurrent, moderate F33.1 and Problems related to release from group home Z65.2 [place] [id number] [place] [address] 49569- 7764 Feb, Left leg pain M79.605 [facility] [id number] [place] [address] 43290- 0926 Feb, [place] [address] 38503- 4868 Feb, BMI 40.0-44.9, adult Z68.41 ; Chronic pain syndrome G89.4 ; Migraine without aura and without status migrainosus, not intractable G43.009 ; Mitral valve prolapse I34.1 and 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 [facility] [id number] [place] [address] 76372- 1705 Feb, Post-traumatic stress disorder, chronic F43.12 ; Anxiety F41.9 ; Problems related to release from group home Z65.2 and BMI 40.0-44.9, adult Z68.41 [facility] [id number] [place] [address] 18926- 1214 Feb, Post-traumatic stress disorder, unspecified F43.10 ; Major depressive disorder, recurrent, moderate F33.1 and Problems related to release from group home Z65.2 [facility] [id number] [place] [address] 93190- 9295 Feb, Left leg pain M79.605 [facility] [facility] [id number] [place] [address] 23873- 5475 Jan, Post-traumatic stress disorder, unspecified F43.10 ; Major depressive disorder, recurrent, moderate F33.1 and Problems related to release from group home Z65.2 [facility] [id number] [place] [address] 52099- 5210 Jan, [facility] [id number] [place] [address] 28586- 1144 Jan, [facility] [id number] [place] [address] 87990- 0128 Jan, Anxiety F41.9 [facility] [id number] [place] [address] 21696- 9082 Jan, Left leg pain M79.605 [facility] [id number] [place] [address] 46444- 9734 Dec, Left leg pain M79.605 [place] [facility] [id number] [place] [address] 58460- 1273 Dec, [facility] [facility] [id number] [place] [address] 20868- 1686 Dec, Post-traumatic stress disorder, unspecified F43.10 ; Major depressive disorder, recurrent, moderate F33.1 and Problems related to release from group home Z65.2 [facility] [id number] [place] [address] 47702- 6365 31 Nov, 2016 Chronic pain G89.29 and Anxiety F41.9 [place] [facility] [id number] [place] [address] 24 Nov, 2016 Chronic pain G89.29 and Anxiety F41.9 [place] [address] 77802- 7820 16 Nov, 2016 Post-traumatic stress disorder, unspecified F43.10 ; Major depressive disorder, recurrent, moderate F33.1 and Problems related to release from group home Z65.2 [place] [address] 63326- 9177 09 Nov, 2016 Other abnormal findings in specimens from other organs, systems and tissues R89.8 ; Other male erectile dysfunction N52.8 ; Body mass index (BMI) of 40.0-44.9 in adult Z68.41 and Morbid (severe) obesity due to excess calories E66.01 [facility] [facility] [id number] [place] [address] 43401- 6567 02 Nov, 2016 Post-traumatic stress disorder, unspecified F43.10 ; Major depressive disorder, recurrent, moderate F33.1 and Problems related to release from group home Z65.2 [facility] [id number] [place] [address] [id number] Oct, Dental examination Z01.20 [place] [id number] [place] [address] 50454- 3913 Oct, [facility] [id number] [place] [address] 69131- 2685 Oct, Encounter for immunization Z23 [place] [address] 85249- 1171 26 Oct, 2016 Chronic pain G89.29 ; Anxiety F41.9 ; Arrhythmia as indication for cardiac pacemaker replacement I49.9 and Glaucoma H40.[address] 81544- 9099 Oct, Anxiety F41.9 ; Post-traumatic stress disorder, chronic F43.12 and Problems related to release from group home Z65.2 [place] [id number] [place] [address]- 7579 07 Oct, 2016 Post-traumatic stress disorder, unspecified F43.10 ; Major depressive disorder, recurrent, moderate F33.1 and Problems related to release from group home Z65.2 [facility] [id number] [place] [address] 12598- 4267 Sep, Chronic pain G89.29 and Anxiety F41.9 [facility] [id number] [place] [address] 05690- 4137 Sep, Post-traumatic stress disorder, unspecified F43.10 ; Major depressive disorder, recurrent, moderate F33.1 and Problems related to release from group home Z65.2 [facility] [facility] [id number] [place] [address] 81863- 1585 Sep, Post-traumatic stress disorder, unspecified F43.10 ; Major depressive disorder, recurrent, moderate F33.1 and Problems related to release from group home Z65.2 [facility] [id number] [place] [address] 81669- 0763 Sep, Chronic pain G89.29 [facility] [facility] [id number] [place] [address] 21570- 8448 Aug, Dental caries, unspecified K02.9 [facility] [facility] [id number] [place] [address] 12124- 3843 Aug, Sleep apnea, obstructive G47.33 ; Obesity E66.9 ; Chronic pain G89.29 ; HTN (hypertension) I10 ; Major depressive disorder, recurrent, moderate F33.1 ; Anxiety F41.9 ; Chronic tension headaches G44.229 ; Mitral valve prolapse I34.1 ; Arrhythmia as indication for cardiac pacemaker replacement I49.9 ; Dental caries, unspecified K02.9 ; Primary insomnia F51.01 and Hyperlipidemia E78.5 [place] [address] [address]- 3354 Aug, Post-traumatic stress disorder, unspecified F43.10 ; Major depressive disorder, recurrent, moderate F33.1 and Problems related to release from group home Z65.2 [facility] [address] [address]- 5724 Aug, Dental examination Z01.20 [facility] [id number] [place] [address] [id number] Aug, Dental examination Z01.20 [facility] [id number] [place] [address] 04661- 9469 06 Aug, 2016 Post-traumatic stress disorder, unspecified F43.10 ; Major depressive disorder, recurrent, moderate F33.1 and Problems related to release from group home Z65.2 [facility] [id number] [place] [address] 21739- 0635 Aug, Chronic pain G89.29 and Primary insomnia F51.01 [facility] [id number] [place] [address] 71172- 2324 Jul, [facility] [id number] [place] [address] 38088- 0245 Jul, [facility] [id number] [place] [address] 56925- 8292 Jul, Nausea R11.0 [facility] [id number] [place] [address] 20632- 7651 Jul, Arrhythmia as indication for cardiac pacemaker replacement I49.9 [facility] [id number] [place] [address] 19961- 9582 Jul, Post-traumatic stress disorder, unspecified F43.10 ; Major depressive disorder, recurrent, moderate F33.1 and Problems related to release from group home Z65.2 [facility] [id number] [place] [address] 82990- 5191 Jul, Anxiety F41.9 [facility] [id number] [place] [address] 87392- 0180 08 Jul, 2016 Chronic pain G89.29 [facility] [facility] [id number] [place] [address] 45912- 4462 Jul, Sleep apnea, obstructive G47.33 ; Hyperlipidemia E78.5 ; Chronic pain G89.29 ; Blindness and low vision H54.10 ; Major depressive disorder, recurrent, moderate F33.1 ; Anxiety F41.9 ; Mitral valve prolapse I34.1 ; Arrhythmia as indication for cardiac pacemaker replacement I49.9 ; Primary insomnia F51.01 ; Bilateral headaches R51 and Environmental allergies Z91.[address] 56248- 3897 Jul, Post-traumatic stress disorder, unspecified F43.10 ; Major depressive disorder, recurrent, moderate F33.1 and Problems related to release from group home Z65.[address] 43465- 9908 June, Post-traumatic stress disorder, chronic F43.12 ; Anxiety F41.9 ; Problems related to release from group home Z65.2 ; Sleep apnea, obstructive G47.33 and Primary insomnia F51.01 [place] [facility] [id number] [place] [address] 14150- 8944 June, [facility] [id number] [place] [address] 35419- 1676 June, [place] [address] 50993- 2479 June, [facility] [facility] [id number] [place] [address] 41324- 7149 June, Chronic pain G89.29 [facility] [facility] [id number] [place] [address] 95024- 3897 June, Chronic pain G89.29 [facility] [id number] [place] [address] 17049- 8269 June, Lipoma of left lower extremity D17.24 ; Open wound T14.8 and Swelling of left lower extremity M79.89 [facility] [facility] [id number] [place] [address] 52423- 3858 June, Post-traumatic stress disorder, unspecified F43.10 ; Major depressive disorder, recurrent, moderate F33.1 and Problems related to release from group home Z65.2 [place] [address] 13130- 7859 May, Lipoma of left lower extremity D17.24 ; Major depressive disorder, recurrent, moderate F33.1 ; Sleep apnea, obstructive G47.33 ; Hyperlipidemia E78.5 ; Obesity E66.9 ; HTN (hypertension) I10 ; Glaucoma H40.9 ; CAD (coronary artery disease) I25.10 ; Chronic tension headaches G44.229 ; Chronic pain G89.29 ; Anxiety F41.9 ; Nausea R11.0 and Primary insomnia F51.01 [place] [address] 63062- 1106 May, [place] [address] 57204- 2884 May, Chronic pain G89.29 [place] [address] 79474- 0652 May, [facility] [id number] [place] [address] 14727- 5485 Apr, Post-traumatic stress disorder, unspecified F43.10 ; Major depressive disorder, recurrent, moderate F33.1 and Problems related to release from group home Z65.2 [facility] [id number] [place] [address] 23982- 2845 Apr, Primary insomnia F51.01 ; Post-traumatic stress disorder, chronic F43.12 and Problems related to release from group home Z65.2 [facility] [id number] [place] [address] 20967- 2190 Apr, Post-traumatic stress disorder, unspecified F43.10 ; Major depressive disorder, recurrent, moderate F33.1 and Problems related to release from group home Z65.2 [facility] [id number] [place] [address] 77878- 7103 16 Apr, 2016 [place] [id number] [place] [address] 16712- 6105 16 Apr, 2016 Sleep apnea, obstructive G47.33 ; Chronic pain G89.29 ; HTN (hypertension) I10 ; Mitral valve prolapse I34.1 ; Shoulder pain, left M25.512 ; Arrhythmia as indication for cardiac pacemaker replacement I49.9 ; Glaucoma H40.9 ; Bilateral headaches R51 ; Environmental allergies Z91.09 ; Primary insomnia F51.01 and Nausea R11.0 [place] [id number] [place] [address] 54989- 2202 Apr, [facility] [id number] [place] [address] 75943- 8657 Apr, [facility] [facility] [id number] [place] [address] 95549- 1668 Apr, Post-traumatic stress disorder, unspecified F43.10 ; Major depressive disorder, recurrent, moderate F33.1 and Problems related to release from group home Z65.2 [place] [id number] [place] [address] 83794- 8159 Apr, HTN (hypertension) I10 [place] [id number] [place] [address] 26832- 8455 Apr, HTN (hypertension) I10 [facility] [id number] [place] [address] [phone]- [phone] 14 Mar, 2016 Chronic pain G89.29 ; Primary insomnia F51.01 and Problems related to release from group home Z65.[address] [place] [id number] [place] [address] [id number] [phone] 07 Mar, 2016 Post-traumatic stress disorder, unspecified F43.10 ; Major depressive disorder, recurrent, moderate F33.1 and Problems related to release from group home Z65.[address] [place] [id number] [place] [address] [id number] Feb, Post-traumatic stress disorder, unspecified F43.10 ; Major depressive disorder, recurrent, moderate F33.1 and Problems related to release from group home Z65.[address] [place] [id number] [place] [address] [phone] Feb, Chronic tension headaches G44.229 [place] [id number] [place] [address] [phone]- [phone] Feb, Sleep apnea, obstructive G47.33 ; Obesity [...] pacemaker replacement I49.9 and Primary insomnia F51.01 [place] [id number] [place] [address] 37687- 3628 Feb, Post-traumatic stress disorder, unspecified F43.10 and Chronic pain G89.29 [id number] [place] [address] 95457- 1564 Feb, [facility] [id number] [place] [address] [id number] Feb, Dental caries K02.[id number] [place] [address] 10443- 4205 Feb, [address] 54221- 9596 Feb, Post-traumatic stress disorder, unspecified F43.10 ; Major depressive disorder, recurrent, moderate F33.1 and Problems related to release from group home Z65.2 [place] [id number] [place] [address] 43055- 4188 Jan, Sleep apnea, obstructive G47.33 and Chronic pain G89.29 [place] [id number] [address] 7898 Jan, [facility] [facility] [id number] [place] [address] 56068- 0068 14 Jan, 2016 Dental examination Z01.20 [place] [id number] [place] [address] 55385- 7935 Jan, [facility] [facility] [id number] [place] [address] 69503- 5946 Jan, [place] [facility] [id number] [place] [address] 39388- 0731 Dec, Post-traumatic stress disorder, unspecified F43.10 ; Major depressive disorder, recurrent, moderate F33.1 and Problems related to release from group home Z65.2 [place] [id number] [place] [address] 02865- 6335 Dec, Encounter for immunization Z23 ; Problems related to release from group home Z65.2 ; Sleep apnea, obstructive G47.33 and Post-traumatic stress disorder, chronic F43.12 [place] [id number] [place] [address] 57940- 2496 18 Dec, 2015 Sleep apnea, obstructive G47.33 ; Hyperlipidemia E78.5 ; Chronic pain G89.29 ; Glaucoma H40.9 ; HTN (hypertension) I10 ; Post-traumatic stress disorder, unspecified F43.10 ; Anxiety F41.9 ; Chronic tension headaches G44.229 ; Mitral valve prolapse I34.1 and CAD (coronary artery disease) I25.10 [place] [id number] [place] [address] 40210- 4223 15 Dec, 2015 Post-traumatic stress disorder, unspecified F43.10 ; Major depressive disorder, recurrent, moderate F33.1 and Problems related to release from group home Z65.2 [place] [id number] [place] [address] 49658- 9550 Nov, Chronic pain G89.29 [place] [id number] [address] 9034 Nov, Post-traumatic stress disorder, unspecified F43.10 ; Major depressive disorder, recurrent, moderate F33.1 and Problems related to release from group home Z65.2 [place] [id number] [address] 0416 Oct, [facility] [facility] [id number] [place] [address] 19313- 4278 Oct, [facility] [facility] [id number] [place] [address] 72712- 0502 Oct, Post-traumatic stress disorder, unspecified F43.10 ; Major depressive disorder, recurrent, moderate F33.1 and Problems related to release from group home Z65.2 [place] [id number] [place] [address] 50513- 6914 08 Oct, 2015 [facility] [facility] [id number] [place] [address] 68252- 2178 07 Oct, 2015 Environmental allergies Z91.09 ; Cough R05 and Open-angle glaucoma of both eyes H40.10X0 [facility] [id number] [address]- 4924 Sep, [facility] [facility] [id number] [address]- 7266 Sep, Post-traumatic stress disorder, unspecified F43.10 ; Major depressive disorder, recurrent, moderate F33.1 and Problems related to release from group home Z65.2 [place] [id number] [address]- 9490 Sep, Chronic pain G89.29 [place] [id number] [place] [address] 17924- 9504 Sep, Other chronic pain G89.29 ; Pain in right shoulder M25.511 and Pain in left shoulder M25.512 [place] [id number] [id number] 7845 Sep, [facility] [id number], [place] [address]- 5707 Sep, [facility] [id number] 5043 Sep, [facility] [id number] [id number] Aug, Dental examination Z01.20 [facility] [id number] [place] [address] 79571- 9459 Aug, Post-traumatic stress disorder, unspecified F43.10 ; Open- angle glaucoma of both eyes H40.10X0 and Problems related to release from group home Z65.2 [facility] [id number] [place] [address] 13019- 7151 Aug, [facility] [id number] [place] [address] 80867- 7262 Aug, Sleep apnea, obstructive G47.33 ; Obesity E66.9 ; Hyperlipidemia E78.5 ; Bilateral headaches R51 ; HTN (hypertension) I10 ; Post- traumatic stress disorder, unspecified F43.10 ; Anxiety F41.9 ; Neuropathy G62.9 ; Glaucoma H40.9 and Chronic pain G89.29 [facility] [address] [id number] [id number] Aug, Encounter for dental examination Z01.20 [facility] [id number] [place] [address] 17638- 6121 Aug, Post-traumatic stress disorder, unspecified F43.10 ; Major depressive disorder, recurrent, moderate F33.1 and Problems related to release from group home Z65.2 [facility] [id number] [address]- 7555 Aug, [facility] [id number] [address]- 8106 Jul, [facility] [id number] [address]- 9654 Jul, Post-traumatic stress disorder, unspecified F43.10 and Major depressive disorder, recurrent, moderate F33.1 [facility] [id number] [address]- 0159 Jul, [facility] [id number], [place] [address]- 5608 Jul, [facility] [id number] [place] [address] 63453- 5538 Jul, Chronic pain G89.29 [facility] [id number] [place] [address] 07078- 6953 June, Post-traumatic stress disorder, unspecified F43.10 and Major depressive disorder, recurrent, moderate F33.1 [facility] [id number], [place] [address]- 4281 June, [facility] [id number] [place] [address] 89645- 0462 June, Chronic pain G89.29 [facility] [id number] [place] [address] 16783- 7995 June, Post-traumatic stress disorder, unspecified F43.10 and Major depressive disorder, recurrent, moderate F33.1 [facility] [id number] [address]- 1253 May, Post-traumatic stress disorder, unspecified F43.10 and Major depressive disorder, recurrent, moderate F33.1 [facility] [id number] [address]- 1000 May, [facility] [id number] [place] [address] 64835- 2653 May, [facility] [id number], [place] [address]- 2861 May, [facility] [id number] [place] [address] 76659- 4070 Apr, [facility] [id number] [place] [address] 35444- 6855 Apr, Post-traumatic stress disorder, unspecified F43.10 and Sleep apnea, obstructive G47.33 [facility] [id number] [place] [address] 27530- 8931 Apr, [facility] [id number] [place] [address] 20015- 4353 Apr, Shoulder pain, left M25.512 [facility] [id number] [place] [address] 23146- 7740 Apr, Post-traumatic stress disorder, unspecified F43.10 and Major depressive disorder, recurrent, moderate F33.1 [place] [id number] [place] [address] 06373- 9287 17 Apr, 2015 [facility] [id number] [place] [address] 40039- 4450 Apr, [facility] [id number] [place] [address] 68838- 7202 08 Apr, 2015 [facility] [id number] [place] [address] 77117- 3657 Apr, Left shoulder pain M25.512 [facility] [id number] [place] [address] 03404- 0428 Mar, [facility] [id number] [place] [address] 10139- 7413 Mar, [facility] [id number] [place] [address] 40545- 7015 Mar, [facility] [id number] [place] [address] 08210- 8854 12 Mar, 2015 Sleep apnea, obstructive G47.33 ; Obesity E66.9 ; Chronic pain G89.29 ; Hyperlipidemia E78.5 ; HTN (hypertension) I10 ; Blindness and low vision H54.10 ; Major depressive disorder, recurrent, moderate F33.1 and Anxiety F41.9 [place] [id number] [place] [address] 77270- 5817 Mar, [place] [id number] [place] [address] 00674- 0942 Mar, Post-traumatic stress disorder, unspecified F43.10 and Major depressive disorder, recurrent, moderate F33.1 [place] [id number] [place] [address] 40881- 9628 Mar, [place] [id number] [place] [address] 24117- 5858 04 Mar, 2015 HTN (hypertension) I10 ; Blindness and low vision H54.10 ; Obesity E66.9 ; Hyperlipidemia E78.5 ; Glaucoma H40.9 ; Chronic pain G89.29 and CAD (coronary artery disease) I25.10 [place] [id number] [place] [address] 12956- 2486 Feb, [place] [id number] [place] [address] 89663- 0022 Feb, Post-traumatic stress disorder, unspecified F43.10 ; Obesity E66.9 ; Sleep apnea, obstructive G47.33 and Open-angle glaucoma of both eyes H40.10X0 [place] [id number] [place] [address] 73211- 6939 Feb, Post-traumatic stress disorder, unspecified F43.10 and Major depressive disorder, recurrent, moderate F33.1 [place] [id number] [place] [address] 90292- 2632 Feb, [address] 86082- 3870 Feb, [place] [id number] [place] [address] 09207- 9655 Feb, HTN (hypertension) I10 ; Post-traumatic stress disorder, unspecified F43.10 ; Blindness and low vision H54.10 ; Obesity E66.9 ; Hyperlipidemia E78.5 ; Chronic pain G89.29 ; Glaucoma H40.9 ; Mitral valve prolapse I34.1 and Bilateral headaches R51 [place] [id number] [place] [address] 43979- 6732 Feb, [place] [address] 90625- 7903 Feb, Post-traumatic stress disorder, unspecified F43.10 and Major depressive disorder, recurrent, moderate F33.1 [place] [address] 15200- 6454 Feb, [place] [address] 56277- 1698 Feb, [place] [address] 04249- 7760 Jan, [place] [address] 48863- 5830 Jan, [place] [address] 84204- 1824 Jan, Obesity E66.9 ; HTN (hypertension) I10 ; Blindness and low vision H54.10 ; Major depressive disorder, recurrent, moderate F33.1 ; Glaucoma H40.9 ; Hyperlipidemia E78.5 ; Sleep apnea, obstructive G47.33 ; Chronic pain G89.29 ; Anxiety F41.9 ; Chronic tension headaches G44.229 and Cough R05 [place] [id number] [place] [address] 61350- 4073 Jan, [address] 64902- 3612 Jan, [place] [id number] [place] [address] 38212- 3105 Jan, Post-traumatic stress disorder, unspecified F43.10 ; Obesity E66.9 ; Sleep apnea, obstructive G47.33 and Open-angle glaucoma of both eyes H40.10X0 [place] [id number] [place] [address]- [address]992 Jan, [address] 7280 Jan, Post-traumatic stress disorder, unspecified F43.10 and Major depressive disorder, recurrent, moderate F33.1 [place] 382804- 0943 Dec, [place] [address] [place] 056038- 8360 Dec, Sleep apnea, obstructive G47.33 ; Obesity E66.9 ; Hyperlipidemia E78.5 ; Glaucoma H40.9 ; Chronic pain G89.29 ; HTN (hypertension ) I10 ; Blindness and low vision H54.10 ; Anxiety F41.9 and CAD (coronary artery disease) I25.10 [place] [address] 38703- 4428 Nov, [address] 372911- 0327 Nov, [place] [address] 35020- 1541 Nov, [address] 17053- 4326 Nov, [place] [address] [place] [id number]- 4806 Nov, [address] 07458- 4351 Nov, Encounter for immunization Z23 ; Sleep apnea, obstructive G47.33 ; Obesity E66.9 ; Hyperlipidemia E78.5 ; Glaucoma H40.9 ; Chronic pain G89.29 ; Anxiety F41.9 ; Chronic tension headaches G44.229 and HTN (hypertension ) I10 [address] [place] [address]- 3968 19 Nov, 2014 [facility] [id number] [place] [address] 50428- 5419 14 Nov, 2014 [facility] [id number] [place] [address] 35470- 8964 06 Nov, 2014 Dizziness R42 [facility] [id number] [place] [address] 32189- 4472 Nov, [facility] [id number] [place] [address] 62475- 9263 29 Oct, 2014 [facility] [id number] [place] [address] 13146- 3615 28 Oct, 2014 [facility] [id number] [place] [address] 22253- 7141 Oct, [facility] [id number] [place] [address] 25182- 7962 Oct, [facility] [id number] [place] [address] 06863- 7283 17 Oct, 2014 Dizziness 780.4 ; Essential hypertension 401.9 ; Obesity 278.00 ; Hyperlipidemia 272.4 ; Chronic pain 338.29 ; Glaucoma 365.9 and Anxiety 300.00 [facility] [id number] [place] [address] 98460- 4439 Oct, Essential hypertension 401.9 ; Hyperlipidemia 272.4 ; Glaucoma 365.9 ; Obesity 278.00 ; Chronic pain 338.29 and Allergy to insects V15.06 [facility] [id number] [place] [address] 43356- 7367 Sep, [facility] [id number] [place] [address] 20746- 3167 Sep, [facility] [id number] [place] [address] 76753- 2773 Sep, [facility] [id number] [place] [address] 90305- 3672 Sep, [facility] [address] [facility] [id number] [place] [address]- 6098 Aug, Essential hypertension 401.9 ; Obesity 278.00 ; Hyperlipidemia 272.4 ; Glaucoma 365.9 ; Lipoma 214.9 ; Mitral valve prolapse 424.0 ; Angina at rest 413.9 ; Lymphedema 457.1 and Chronic pain 338.29 IMMUNIZATIONS No Known Immunizations SOCIAL HISTORY Never Assessed REASON FOR VISIT refill PLAN OF CARE VITAL SIGNS MEDICATIONS Medication Instructions Dosage Frequency Start Date End Date Duration Status EPINEPHrine 0.3 MG/0.3ML as directed Jul, Active EPINEPHrine HCl 0.3 mg as directed Oct, Active RESULTS No Results PROCEDURES No [...]
--- OUTSIDE RECORDS SUMMARY | 2018-02-04 14:37 | XMS REPORT ---
Author Author DALJIT DAMON Organization [facility] Address [address] [place] [address] Care Team Providers Care Licensed Club Manager Name Role Phone MARISOLLILIA Unavailable PROBLEMS Type Condition ICD9-CM Code MBD98-TI Code Onset Dates Condition Status SNOMED Code Problem Hyperlipidemia E78.5 Active 98577515 Problem Arrhythmia as indication for cardiac pacemaker replacement I49.9 Active 87465761 Problem Sleep apnea, obstructive G47.33 Active 46384184 Problem Primary insomnia F51.01 Active 1081306 Problem Chronic pain G89.29 Active 11642491 Problem Morbid (severe) obesity due to excess calories E66.01 Active 951978245 Problem Body mass index (BMI) of 40.0-44.9 in adult Z68.41 Active 222838258 Problem Other male erectile dysfunction N52.8 Active 651737606 Problem Supraventricular tachycardia I47.1 Active 6954493 Problem Sarcoidosis D86.9 Active 33457510 Problem HTN (hypertension) I10 Active 01189909 Problem Blindness and low vision H54.10 Active 294894125 Problem Myocarditis, unspecified chronicity, 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 Active 75518682 Problem Migraine without aura and without status migrainosus, not intractable G43.009 Active 971885664 Problem 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 Active 493589051 Problem Problems related to release from custodial Z65.2 Active [id number] Problem Chronic pain syndrome G89.4 Active 364298799 Problem Major depressive disorder, recurrent, moderate F33.1 Active 02406253 Problem Open-angle glaucoma of both eyes H40.10X0 Active 56708438 Problem Chronic tension headaches G44.229 Active 224559935 Problem Anxiety F41.9 Active 63581065 Problem Post-traumatic stress disorder, chronic F43.12 Active 708361606 Problem Environmental allergies Z91.09 Active 564887308 Problem Mitral valve prolapse I34.1 Active 609823494 Problem CAD (coronary artery disease) I25.10 Active 31775766 ALLERGIES No Information ENCOUNTERS Encounter Location Date Diagnosis [facility] [id number] [place] [address] 93551- 3335 Oct, [facility] [id number] [place] [address] 25576- 7672 Oct, [facility] [id number] [place] [address] 42472- 2657 Oct, [facility] [address] 51970- 1167 Sep, Arrhythmia as indication for cardiac pacemaker replacement I49.9 [facility] [address] 06884- 6707 Sep, [facility] [id number] [place] [address] 31779- 4312 Sep, HTN (hypertension) I10 [facility] [id number] [place] [address] 17685- 1510 Sep, [facility] [id number] [place] [address] 52824- 8908 16 Sep, 2017 Body mass index (BMI) of 40.0-44.9 in adult Z68.41 ; Chronic pain G89.29 and Supraventricular tachycardia I47.1 [facility] [id number] [place] [address] 83824- 0068 Sep, [facility] [id number] [place] [address] 30640- 0942 Sep, Sarcoidosis D86.9 [facility] [id number] [place] [address] 43898- 4318 Sep, Sarcoidosis D86.9 [facility] [id number] [place] [address] 07816- 5818 Sep, [facility] [id number] [place] [address] 87521- 7239 Sep, [facility] [address] [address] 6585 Sep, [facility] [id number] [place] [address] 85438- 7487 Sep, [facility] [id number] [place] [address] 37321- 0706 Sep, Left leg pain M79.605 [facility] [id number] [place] [address] 51197- 4775 Sep, HTN (hypertension) I10 [facility] [id number] [place] [address] 61673- 7999 Sep, [facility] [address] [place] [address] 13285- 8624 Sep, Post-traumatic stress disorder, unspecified F43.10 ; Major depressive disorder, recurrent, moderate F33.1 and Problems related to release from custodial Z65.2 [facility] [address] [address]- 5776 Sep, [facility] [address] [place] [address] 30756- 6262 Aug, [facility] [id number] [place] [address] 18845- 7303 Aug, Sarcoidosis D86.9 [facility] [address] [address]- 5863 Aug, Sarcoidosis D86.9 [facility] [address] [address]- 9480 Aug, HTN (hypertension) I10 [facility] [address] [address]- 8147 Aug, Post-traumatic stress disorder, unspecified F43.10 ; Major depressive disorder, recurrent, moderate F33.1 and Problems related to release from custodial Z65.2 [facility] [id number] [place] [address] 27737- 0520 Aug, [facility] [id number] [place] [address] 32142- 3339 Aug, Left leg pain M79.605 [facility] [address] 07598- 4840 Jul, Post-traumatic stress disorder, chronic F43.12 ; Anxiety F41.9 ; Problems related to release from custodial Z65.2 and BMI 40.0-44.9, adult Z68.41 [facility] [address] 32330- 9348 20 Jul, 2017 HTN (hypertension) I10 ; Body mass index (BMI) of 40.0-44.9 in adult Z68.41 and Acute swimmer''s ear of both sides H60.333 [place] [address] 70326- 1264 19 Jul, 2017 Glaucoma H40.9 [facility] [address] 31059- 3923 14 Jul, 2017 [facility] [address] 69396- 2816 13 Jul, 2017 Sarcoidosis D86.9 [facility] [address] 73252- 3301 Jul, Left leg pain M79.605 [place] [address] 65512- 2478 Jul, Sarcoidosis D86.9 [facility] [address] 22225- 9734 Jul, Post-traumatic stress disorder, unspecified F43.10 ; Major depressive disorder, recurrent, moderate F33.1 and Problems related to release from custodial Z65.2 [facility] [address] 10348- 3771 June, [facility] [address] 38178 -5092 June, Sore throat J02.9 and BMI 40.0-44.9, adult Z68.41 [facility] [id number] [place] [address] 83156- 2071 June, [facility] [id number] [place] [address] 56018- 9642 June, [facility] [id number] [place] [address] 64303- 8740 June, [facility] [id number] [place] [address] 51910- 2598 June, Left leg pain M79.605 [facility] [id number] [place] [address] 40354- 9508 June, Sarcoidosis D86.9 [facility] [id number] [place] [address] 90045- 5343 June, [facility] [id number] [place] [address] 58032- 5683 June, [facility] [id number] [place] [address] 14445- 2525 June, Left leg pain M79.605 [facility] [id number] [place] [address] 58254- 9241 May, [facility] [id number] [place] [address] 37518- 8127 May, [facility] [id number] [place] [address] 12320- 9469 May, [facility] [id number] [place] [address] 01954- 9171 May, Left leg pain M79.605 [facility] [address] [place] [address] 73613- 1635 May, Post-traumatic stress disorder, unspecified F43.10 ; Major depressive disorder, recurrent, moderate F33.1 and Problems related to release from custodial Z65.2 [facility] [id number] [place] [address] 51003- 8931 May, Chronic pain G89.29 ; Anxiety F41.9 ; Chest pain, unspecified type R07.9 and BMI 40.0-44.9, adult Z68.41 [place] [address] 35421- 6536 30 Apr, 2017 [place] [id number] [place] [address] 07042- 4871 29 Apr, 2017 Left leg pain M79.605 [place] [address] 43032- 9671 27 Apr, 2017 Post-traumatic stress disorder, unspecified F43.10 ; Problems related to release from custodial Z65.2 ; Anxiety F41.9 and BMI 40.0-44.9 , adult Z68.41 [place] [id number] [place] [address] 11324- 0605 Apr, [facility] [id number] [place] [address] 25275- 8646 Apr, Left leg pain M79.605 [place] [id number] [place] [address] 82704- 0979 13 Apr, 2017 Post-traumatic stress disorder, unspecified F43.10 ; Major depressive disorder, recurrent, moderate F33.1 and Problems related to release from custodial Z65.2 [place] [id number] [place] [address] 21994- 5189 Apr, [place] [id number] [place] [address] 65414- 8941 Apr, Chronic pain G89.29 ; 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 ; Morbid (severe) obesity due to excess calories E66.01 ; Anxiety F41.9 and BMI 40.0-44.9, adult Z68.41 [facility] [id number] [place] [address] 66980 -7619 Apr, Sore throat J02.9 and BMI 40.0-44.9, adult Z68.41 [place] [address] 62919- 5018 Apr, Left leg pain M79.605 [facility] [address] [place] [address] [id number] Mar, Dental examination Z01.20 [facility] [address] 43977- 1183 Mar, [facility] [address] 85744 -0703 Mar, Cough R05 ; Viral gastroenteritis A08.4 and BMI 40.0-44.9, adult Z68.41 [place] [address] 63679- 9117 Mar, Left leg pain M79.605 [place] [id number] [place] [address] 41019- 1489 06 Mar, 2017 Post-traumatic stress disorder, unspecified F43.10 ; Major depressive disorder, recurrent, moderate F33.1 and Problems related to release from custodial Z65.2 [place] [id number] [place] [address] 55716- 3363 Feb, Left leg pain M79.605 [facility] [id number] [place] [address] 07539- 0869 Feb, [place] [address] 41420- 4754 Feb, BMI 40.0-44.9, adult Z68.41 ; Chronic pain syndrome G89.4 ; Migraine without aura and without status migrainosus, not intractable G43.009 ; Mitral valve prolapse I34.1 and 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 [facility] [id number] [place] [address] 92138- 9386 Feb, Post-traumatic stress disorder, chronic F43.12 ; Anxiety F41.9 ; Problems related to release from custodial Z65.2 and BMI 40.0-44.9, adult Z68.41 [facility] [id number] [place] [address] 99917- 8168 Feb, Post-traumatic stress disorder, unspecified F43.10 ; Major depressive disorder, recurrent, moderate F33.1 and Problems related to release from custodial Z65.2 [facility] [id number] [place] [address] 68883- 5758 Feb, Left leg pain M79.605 [place] [id number] [place] [address] 09827- 3435 Jan, Post-traumatic stress disorder, unspecified F43.10 ; Major depressive disorder, recurrent, moderate F33.1 and Problems related to release from custodial Z65.2 [place] [id number] [place] [address] 85239- 0119 Jan, [place] [id number] [place] [address] 48132- 9028 Jan, [place] [id number] [place] [address] 92387- 6235 Jan, Anxiety F41.9 [place] [id number] [place] [address] 03835- 1756 Jan, Left leg pain M79.605 [facility] [id number] [place] [address] 30219- 1753 Dec, Left leg pain M79.605 [place] [id number] [place] [address] 02708- 7056 Dec, [place] [id number] [place] [address] 45845- 8239 Dec, Post-traumatic stress disorder, unspecified F43.10 ; Major depressive disorder, recurrent, moderate F33.1 and Problems related to release from custodial Z65.2 [facility] [id number] [place] [address] 23467- 6932 31 Nov, 2016 Chronic pain G89.29 and Anxiety F41.9 [place] [id number] [place] [address]- 3188 24 Nov, 2016 Chronic pain G89.29 and Anxiety F41.9 [place] [address] 54163- 6514 16 Nov, 2016 Post-traumatic stress disorder, unspecified F43.10 ; Major depressive disorder, recurrent, moderate F33.1 and Problems related to release from custodial Z65.2 [place] [address] 97177- 9080 09 Nov, 2016 Other abnormal findings in specimens from other organs, systems and tissues R89.8 ; Other male erectile dysfunction N52.8 ; Body mass index (BMI) of 40.0-44.9 in adult Z68.41 and Morbid (severe) obesity due to excess calories E66.01 [place] [id number] [place] [address] 14127- 3562 02 Nov, 2016 Post-traumatic stress disorder, unspecified F43.10 ; Major depressive disorder, recurrent, moderate F33.1 and Problems related to release from custodial Z65.2 [facility] [id number] [place] [address] [id number] Oct, Dental examination Z01.20 [place] [id number] [place] [address] 41076- 8455 Oct, [place] [id number] [place] [address] 29004- 6973 Oct, Encounter for immunization Z23 [place] [address] 56268- 8312 26 Oct, 2016 Chronic pain G89.29 ; Anxiety F41.9 ; Arrhythmia as indication for cardiac pacemaker replacement I49.9 and Glaucoma H40.[address] 96313- 1696 Oct, Anxiety F41.9 ; Post-traumatic stress disorder, chronic F43.12 and Problems related to release from custodial Z65.2 [place] [id number] [place] [address]- 8318 07 Oct, 2016 Post-traumatic stress disorder, unspecified F43.10 ; Major depressive disorder, recurrent, moderate F33.1 and Problems related to release from custodial Z65.2 [place] [id number] [place] [address] 48026- 6298 Sep, Chronic pain G89.29 and Anxiety F41.9 [place] [id number] [place] [address] 16109- 8671 Sep, Post-traumatic stress disorder, unspecified F43.10 ; Major depressive disorder, recurrent, moderate F33.1 and Problems related to release from custodial Z65.2 [place] [id number] [place] [address] 16624- 6259 Sep, Post-traumatic stress disorder, unspecified F43.10 ; Major depressive disorder, recurrent, moderate F33.1 and Problems related to release from custodial Z65.2 [place] [id number] [place] [address] 22897- 4431 Sep, Chronic pain G89.29 [place] [id number] [place] [address] 42950- 0878 Aug, Dental caries, unspecified K02.9 [place] [id number] [place] [address] 02120- 9005 Aug, Sleep apnea, obstructive G47.33 ; Obesity E66.9 ; Chronic pain G89.29 ; HTN (hypertension) I10 ; Major depressive disorder, recurrent, moderate F33.1 ; Anxiety F41.9 ; Chronic tension headaches G44.229 ; Mitral valve prolapse I34.1 ; Arrhythmia as indication for cardiac pacemaker replacement I49.9 ; Dental caries, unspecified K02.9 ; Primary insomnia F51.01 and Hyperlipidemia E78.5 [place] [address], [place] [address]- 4139 Aug, Post-traumatic stress disorder, unspecified F43.10 ; Major depressive disorder, recurrent, moderate F33.1 and Problems related to release from custodial Z65.2 [facility] [address], [place] [address]- 2764 Aug, Dental examination Z01.20 [facility] [address] [place] [address] [id number] Aug, Dental examination Z01.20 [facility] [id number] [place] [address] 56415- 9225 06 Aug, 2016 Post-traumatic stress disorder, unspecified F43.10 ; Major depressive disorder, recurrent, moderate F33.1 and Problems related to release from custodial Z65.2 [facility] [id number] [place] [address] 28028- 1666 Aug, Chronic pain G89.29 and Primary insomnia F51.01 [facility] [id number] [place] [address] 76703- 7282 Jul, [facility] [id number] [place] [address] 51365- 9124 Jul, [facility] [id number] [place] [address] 62098- 4265 Jul, Nausea R11.0 [facility] [id number] [place] [address] 63145- 2695 Jul, Arrhythmia as indication for cardiac pacemaker replacement I49.9 [facility] [id number] [place] [address] 26098- 4683 Jul, Post-traumatic stress disorder, unspecified F43.10 ; Major depressive disorder, recurrent, moderate F33.1 and Problems related to release from custodial Z65.2 [facility] [address] [place] [address] 59956- 8218 Jul, Anxiety F41.9 [place] [id number] [place] [address] 17986- 9616 08 Jul, 2016 Chronic pain G89.29 [place] [id number] [place] [address] 15160- 8687 Jul, Sleep apnea, obstructive G47.33 ; Hyperlipidemia E78.5 ; Chronic pain G89.29 ; Blindness and low 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2 ; Sleep apnea, obstructive G47.33 and Primary insomnia F51.01 [place] [id number] [place] [address] 63711- 9093 June, [place] [id number] [place] [address] 55744- 0146 June, [place] [address] 04334- 9571 June, [place] [id number] [place] [address] 21738- 9952 June, Chronic pain G89.29 [place] [id number] [place] [address] 96128- 1536 June, Chronic pain G89.29 [place] [id number] [place] [address] 18237- 0201 June, Lipoma of left lower extremity D17.24 ; Open wound T14.8 and Swelling of left lower extremity M79.89 [place] [id number] [place] [address] 68648- 0571 June, Post-traumatic stress disorder, unspecified F43.10 ; Major depressive disorder, recurrent, moderate F33.1 and Problems related to release from custodial Z65.2 [place] [address] 93584- 3314 May, Lipoma of left lower extremity D17.24 ; Major depressive disorder, recurrent, moderate F33.1 ; Sleep apnea, obstructive G47.33 ; Hyperlipidemia E78.5 ; Obesity E66.9 ; HTN (hypertension) I10 ; Glaucoma H40.9 ; CAD (coronary artery disease) I25.10 ; Chronic tension headaches G44.229 ; Chronic pain G89.29 ; Anxiety F41.9 ; Nausea R11.0 and Primary insomnia F51.01 [place] [address] 44642- 4302 May, [place] [address] 14325- 4055 May, Chronic pain G89.29 [place] [address] 97249- 1406 May, [place] [id number] [place] [address] 22151- 3000 Apr, Post-traumatic stress disorder, unspecified F43.10 ; Major depressive disorder, recurrent, moderate F33.1 and Problems related to release from custodial Z65.2 [place] [id number] [place] [address] 43432- 6664 Apr, Primary insomnia F51.01 ; Post-traumatic stress disorder, chronic F43.12 and Problems related to release from custodial Z65.2 [place] [id number] [place] [address] 26755- 6264 Apr, Post-traumatic stress disorder, unspecified F43.10 ; Major depressive disorder, recurrent, moderate F33.1 and Problems related to release from custodial Z65.2 [place] [id number] [place] [address] 41524- 4678 16 Apr, 2016 [place] [id number] [place] [address] 84473- 3921 16 Apr, 2016 Sleep apnea, obstructive G47.33 ; Chronic pain G89.29 ; HTN (hypertension) I10 ; Mitral valve prolapse I34.1 ; Shoulder pain, left M25.512 ; Arrhythmia as indication for cardiac pacemaker replacement I49.9 ; Glaucoma H40.9 ; Bilateral headaches R51 ; Environmental allergies Z91.09 ; Primary insomnia F51.01 and Nausea R11.0 [place] [id number] [place] [address] 33858- 2338 Apr, [place] [id number] [place] [address] 10512- 5998 Apr, [place] [id number] [place] [address] 46456- 7452 Apr, Post-traumatic stress disorder, unspecified F43.10 ; Major depressive disorder, recurrent, moderate F33.1 and Problems related to release from custodial Z65.2 [place] [id number] [place] [address] 38721- 0170 Apr, HTN (hypertension) I10 [place] [id number] [place] [address] 65582- 8757 Apr, HTN (hypertension) I10 [place] [id number] [place] [address] 55491- 3718 14 Mar, 2016 Chronic pain G89.29 ; Primary insomnia F51.01 and Problems related to release from custodial Z65.2 [place] [id number] [place] [address] 96845- 7697 07 Mar, 2016 Post-traumatic stress disorder, unspecified F43.10 ; Major depressive disorder, recurrent, moderate F33.1 and Problems related to release from custodial Z65.2 [place] [id number] [place] [address] [phone] Feb, Post-traumatic stress disorder, unspecified F43.10 ; Major depressive disorder, recurrent, moderate F33.1 and Problems related to release from custodial Z65.2 [place] [address] [place] [id number] [place] [address] [id number] Feb, Chronic tension headaches G44.229 [place] [id number] [place] [address] [phone] Feb, Sleep apnea, obstructive G47.33 ; Obesity [...] pacemaker replacement I49.9 and Primary insomnia F51.01 [place] [id number] [place] [address] 61373- 9593 Feb, Post-traumatic stress disorder, unspecified F43.10 and Chronic pain G89.29 [id number] [place] [address] 26438- 3267 Feb, [facility] [id number] [place] [address] [id number] Feb, Dental caries K02.[address] [place] [address] 75271- 1992 Feb, [address] [address]229- 0008 Feb, Post-traumatic stress disorder, unspecified F43.10 ; Major depressive disorder, recurrent, moderate F33.1 and Problems related to release from custodial Z65.2 [place] [id number] [place] [address] 26880- 6528 Jan, Sleep apnea, obstructive G47.33 and Chronic pain G89.29 [place] [address] [address] Jan, [place] [id number] [place] [address] 58484- 0684 14 Jan, 2016 Dental examination Z01.20 [place] [id number] [place] [address] 06585- 3121 Jan, [place] [id number] [place] [address] 74876- 0206 Jan, [place] [id number] [place] [address] 74502- 1592 Dec, Post-traumatic stress disorder, unspecified F43.10 ; Major depressive disorder, recurrent, moderate F33.1 and Problems related to release from custodial Z65.2 [place] [id number] [place] [address] 84743- 2457 Dec, Encounter for immunization Z23 ; Problems related to release from custodial Z65.2 ; Sleep apnea, obstructive G47.33 and Post-traumatic stress disorder, chronic F43.12 [place] [id number] [place] [address] 95185- 1418 18 Dec, 2015 Sleep apnea, obstructive G47.33 ; Hyperlipidemia E78.5 ; Chronic pain G89.29 ; Glaucoma H40.9 ; HTN (hypertension) I10 ; Post-traumatic stress disorder, unspecified F43.10 ; Anxiety F41.9 ; Chronic tension headaches G44.229 ; Mitral valve prolapse I34.1 and CAD (coronary artery disease) I25.10 [place] [address] [place] [address] 56259- 0515 15 Dec, 2015 Post-traumatic stress disorder, unspecified F43.10 ; Major depressive disorder, recurrent, moderate F33.1 and Problems related to release from custodial Z65.2 [place] [id number] [place] [address] 20377- 5302 Nov, Chronic pain G89.29 [place] [address] [address] 7003 Nov, Post-traumatic stress disorder, unspecified F43.10 ; Major depressive disorder, recurrent, moderate F33.1 and Problems related to release from custodial Z65.2 [place] [address] [address] 1776 Oct, [place] [id number] [place] [address] 22380- 5633 Oct, [place] [id number] [place] [address] 22451- 4611 Oct, Post-traumatic stress disorder, unspecified F43.10 ; Major depressive disorder, recurrent, moderate F33.1 and Problems related to release from custodial Z65.2 [place] [id number] [place] [address] 97210- 4229 08 Oct, 2015 [place] [id number] [place] [address] 89586- 5364 07 Oct, 2015 Environmental allergies Z91.09 ; Cough R05 and Open-angle glaucoma of both eyes H40.10X0 [place] [address] [address] 3894 Sep, [place] [address] [address] 8752 Sep, Post-traumatic stress disorder, unspecified F43.10 ; Major depressive disorder, recurrent, moderate F33.1 and Problems related to release from custodial Z65.2 [place] [address] [address] 9667 Sep, Chronic pain G89.29 [place] [id number] [place] [address] 97052- 9294 Sep, Other chronic pain G89.29 ; Pain in right shoulder M25.511 and Pain in left shoulder M25.512 [place] [id number] [address] [address]130 Sep, [facility] [address], [place] [address] 0550 Sep, [facility] [address] 8470 Sep, [facility] [address] [id number] Aug, Dental examination Z01.20 [facility] [id number] [place] [address] 39828- 2903 Aug, Post-traumatic stress disorder, unspecified F43.10 ; Open- angle glaucoma of both eyes H40.10X0 and Problems related to release from custodial Z65.2 [facility] [id number] [place] [address] 79596- 1429 Aug, [facility] [id number] [place] [address] 20787- 2010 Aug, Sleep apnea, obstructive G47.33 ; Obesity E66.9 ; Hyperlipidemia E78.5 ; Bilateral headaches R51 ; HTN (hypertension) I10 ; Post- traumatic stress disorder, unspecified F43.10 ; Anxiety F41.9 ; Neuropathy G62.9 ; Glaucoma H40.9 and Chronic pain G89.29 [facility] [id number] [id number] Aug, Encounter for dental examination Z01.20 [facility] [id number] [place] [address] 06345- 2868 Aug, Post-traumatic stress disorder, unspecified F43.10 ; Major depressive disorder, recurrent, moderate F33.1 and Problems related to release from custodial Z65.2 [facility] [address], [place] [address]- 8823 Aug, [facility] [address], [place] [address]- 3340 Jul, [facility] [id number] [address]- 7540 Jul, Post-traumatic stress disorder, unspecified F43.10 and Major depressive disorder, recurrent, moderate F33.1 [facility] [address], [place] [address]- 9638 Jul, [facility] [address], [place] [address]- 0278 Jul, [facility] [id number] [place] [address] 31855- 0726 Jul, Chronic pain G89.29 [facility] [id number] [place] [address] 19433- 5599 June, Post-traumatic stress disorder, unspecified F43.10 and Major depressive disorder, recurrent, moderate F33.1 [facility] [address], [place] [address]- 2315 June, [facility] [id number] [place] [address] 87343- 6650 June, Chronic pain G89.29 [facility] [address] [place] [address] 34732- 9734 June, Post-traumatic stress disorder, unspecified F43.10 and Major depressive disorder, recurrent, moderate F33.1 [facility] [address], [place] [address]- 3079 May, Post-traumatic stress disorder, unspecified F43.10 and Major depressive disorder, recurrent, moderate F33.1 [facility] [address], [place] [address]- 3811 May, [facility] [id number] [place] [address] 67344- 6091 May, [facility] [address], [place] [address]- 4251 May, [facility] [id number] [place] [address] 69669- 9750 Apr, [facility] [id number] [place] [address] 96091- 5129 Apr, Post-traumatic stress disorder, unspecified F43.10 and Sleep apnea, obstructive G47.33 [facility] [id number] [place] [address] 44655- 7382 Apr, [facility] [id number] [place] [address] 96661- 7999 Apr, Shoulder pain, left M25.512 [facility] [id number] [place] [address] 73802- 3520 Apr, Post-traumatic stress disorder, unspecified F43.10 and Major depressive disorder, recurrent, moderate F33.1 [place] [id number] [place] [address] 66663- 9113 17 Apr, 2015 [facility] [id number] [place] [address] 84067- 0733 Apr, [facility] [id number] [place] [address] 99953- 0060 08 Apr, 2015 [facility] [id number] [place] [address] 36050- 4145 Apr, Left shoulder pain M25.512 [facility] [id number] [place] [address] 35744- 3689 Mar, [facility] [id number] [place] [address] 32069- 2503 Mar, [facility] [id number] [place] [address] 28809- 9928 Mar, [facility] [id number] [place] [address] 30525- 9850 12 Mar, 2015 Sleep apnea, obstructive G47.33 ; Obesity E66.9 ; Chronic pain G89.29 ; Hyperlipidemia E78.5 ; HTN (hypertension) I10 ; Blindness and low vision H54.10 ; Major depressive disorder, recurrent, moderate F33.1 and Anxiety F41.9 [place] [id number] [place] [address] 85837- 3580 Mar, [place] [id number] [place] [address] 75545- 3797 Mar, Post-traumatic stress disorder, unspecified F43.10 and Major depressive disorder, recurrent, moderate F33.1 [place] [id number] [place] [address] 44328- 0191 Mar, [place] [id number] [place] [address] 26704- 3712 04 Mar, 2015 HTN (hypertension) I10 ; Blindness and low vision H54.10 ; Obesity E66.9 ; Hyperlipidemia E78.5 ; Glaucoma H40.9 ; Chronic pain G89.29 and CAD (coronary artery disease) I25.10 [place] [id number] [place] [address] 64338- 3850 Feb, [place] [address] [id number] [place] [address] 50086- 1235 Feb, Post-traumatic stress disorder, unspecified F43.10 ; Obesity E66.9 ; Sleep apnea, obstructive G47.33 and Open-angle glaucoma of both eyes H40.10X0 [place] [id number] [place] [address] 93750- 9019 Feb, Post-traumatic stress disorder, unspecified F43.10 and Major depressive disorder, recurrent, moderate F33.1 [place] [id number] [place] [address] 28529- 7083 Feb, [address] 08412- 9253 Feb, [place] [id number] [place] [address] 87631- 5433 Feb, HTN (hypertension) I10 ; Post-traumatic stress disorder, unspecified F43.10 ; Blindness and low vision H54.10 ; Obesity E66.9 ; Hyperlipidemia E78.5 ; Chronic pain G89.29 ; Glaucoma H40.9 ; Mitral valve prolapse I34.1 and Bilateral headaches R51 [place] [id number] [place] [address] 33339- 4810 Feb, [place] [address] 99624- 5034 Feb, Post-traumatic stress disorder, unspecified F43.10 and Major depressive disorder, recurrent, moderate F33.1 [place] [address] 05901- 7788 Feb, [place] [address] 94099- 6106 Feb, [place] [address] 92867- 8141 Jan, [place] [address] 18908- 2889 Jan, [place] [address] 44440- 9340 Jan, Obesity E66.9 ; HTN (hypertension) I10 ; Blindness and low vision H54.10 ; Major depressive disorder, recurrent, moderate F33.1 ; Glaucoma H40.9 ; Hyperlipidemia E78.5 ; Sleep apnea, obstructive G47.33 ; Chronic pain G89.29 ; Anxiety F41.9 ; Chronic tension headaches G44.229 and Cough R05 [place] [id number] [place] [address] 37500- 6400 Jan, [address] 85872- 5378 Jan, [place] [id number] [place] [address] 14676- 3296 Jan, Post-traumatic stress disorder, unspecified F43.10 ; Obesity E66.9 ; Sleep apnea, obstructive G47.33 and Open-angle glaucoma of both eyes H40.10X0 [place] [id number] [place] [address] 5123 Jan, [address] 8537 Jan, Post-traumatic stress disorder, unspecified F43.10 and Major depressive disorder, recurrent, moderate F33.1 [place] 164369- 0207 Dec, [place] [address] [place] 454399- 6941 Dec, Sleep apnea, obstructive G47.33 ; Obesity E66.9 ; Hyperlipidemia E78.5 ; Glaucoma H40.9 ; Chronic pain G89.29 ; HTN (hypertension ) I10 ; Blindness and low vision H54.10 ; Anxiety F41.9 and CAD (coronary artery disease) I25.10 [place] [address] 95202- 5782 Nov, [address] 173334- 2616 Nov, [place] [address] 03258- 3945 Nov, [address] 08872- 7717 Nov, [place] [address] [place] [id number]- 2521 Nov, [address] 28562- 1997 Nov, Encounter for immunization Z23 ; Sleep apnea, obstructive G47.33 ; Obesity E66.9 ; Hyperlipidemia E78.5 ; Glaucoma H40.9 ; Chronic pain G89.29 ; Anxiety F41.9 ; Chronic tension headaches G44.229 and HTN (hypertension ) I10 [address] [place] [address]- 9593 19 Nov, 2014 [facility] [id number] [place] [address] 74333- 8941 14 Nov, 2014 [facility] [id number] [place] [address] 21890- 7994 06 Nov, 2014 Dizziness R42 [facility] [id number] [place] [address] 96322- 2870 Nov, [facility] [id number] [place] [address] 98877- 0324 29 Oct, 2014 [facility] [id number] [place] [address] 44598- 0612 28 Oct, 2014 [facility] [id number] [place] [address] 17814- 0555 Oct, [facility] [id number] [place] [address] 53431- 5967 Oct, [facility] [id number] [place] [address] 44558- 4724 17 Oct, 2014 Dizziness 780.4 ; Essential hypertension 401.9 ; Obesity 278.00 ; Hyperlipidemia 272.4 ; Chronic pain 338.29 ; Glaucoma 365.9 and Anxiety 300.00 [facility] [id number] [place] [address] 59658- 6176 Oct, Essential hypertension 401.9 ; Hyperlipidemia 272.4 ; Glaucoma 365.9 ; Obesity 278.00 ; Chronic pain 338.29 and Allergy to insects V15.06 [facility] [id number] [place] [address] 24060- 4554 Sep, [facility] [id number] [place] [address] 37185- 5928 Sep, [facility] [id number] [place] [address] 86161- 3475 Sep, [facility] [id number] [place] [address] 05375- 9496 Sep, [facility] [address] [facility] [id number] [address]- 3155 Aug, Essential hypertension 401.9 ; Obesity 278.00 [...]
--- OUTSIDE RECORDS SUMMARY | 2018-02-04 14:38 | XMS REPORT ---
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 Name Role Phone ALENA ÁLVAREZ Unavailable PROBLEMS Type Condition ICD9-CM Code EGM10-KC Code Onset Dates Condition Status SNOMED Code Problem Hyperlipidemia E78.5 Active 73869184 Problem Arrhythmia as indication for cardiac pacemaker replacement I49.9 Active 04307143 Problem Sleep apnea, obstructive G47.33 Active 50465344 Problem Primary insomnia F51.01 Active 0980761 Problem Chronic pain G89.29 Active 62274934 Problem Morbid (severe) obesity due to excess calories E66.01 Active 028732674 Problem Body mass index (BMI) of 40.0-44.9 in adult Z68.41 Active 142585337 Problem Other male erectile dysfunction N52.8 Active 671371052 Problem Supraventricular tachycardia I47.1 Active 6586958 Problem Sarcoidosis D86.9 Active 51581796 Problem HTN (hypertension) I10 Active 12339365 Problem Blindness and low vision H54.10 Active 923241105 Problem Myocarditis, unspecified chronicity, 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 Active 76254458 Problem Migraine without aura and without status migrainosus, not intractable G43.009 Active 172966502 Problem 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 Active 682143569 Problem Problems related to release from halfway Z65.2 Active 926488455127104 Problem Chronic pain syndrome G89.4 Active 220265798 Problem Major depressive disorder, recurrent, moderate F33.1 Active 66241065 Problem Open-angle glaucoma of both eyes H40.10X0 Active 29874314 Problem Chronic tension headaches G44.229 Active 485495892 Problem Anxiety F41.9 Active 30595463 Problem Post-traumatic stress disorder, chronic F43.12 Active 642974440 Problem Environmental allergies Z91.09 Active 982194726 Problem Mitral valve prolapse I34.1 Active 493998865 Problem CAD (coronary artery disease) I25.10 Active 33767237 ALLERGIES No Information ENCOUNTERS Encounter Location Date Diagnosis [facility] [id number] [place] [address] 88038- 9623 Oct, [facility] [id number] [place] [address] 56453- 1400 Oct, [facility] [id number] [place] [address] 48089- 2194 Oct, [facility] [address] 70335- 8098 Sep, Arrhythmia as indication for cardiac pacemaker replacement I49.9 [facility] [address] 46333- 7434 Sep, [facility] [id number] [place] [address] 93577- 0558 Sep, HTN (hypertension) I10 [facility] [id number] [place] [address] 29989- 1281 Sep, [facility] [id number] [place] [address] 56969- 1399 16 Sep, 2017 Body mass index (BMI) of 40.0-44.9 in adult Z68.41 ; Chronic pain G89.29 and Supraventricular tachycardia I47.1 [facility] [id number] [place] [address] 05997- 7735 Sep, [facility] [id number] [place] [address] 74410- 8325 Sep, Sarcoidosis D86.9 [facility] [id number] [place] [address] 60064- 5499 Sep, Sarcoidosis D86.9 [facility] [id number] [place] [address] 98260- 6867 Sep, [facility] [id number] [place] [address] 04989- 3405 Sep, [facility] [address] [address]- 5238 Sep, [facility] [id number] [place] [address] 68759- 5389 Sep, [facility] [id number] [place] [address] 33527- 3248 Sep, Left leg pain M79.605 [facility] [id number] [place] [address] 46864- 3714 Sep, HTN (hypertension) I10 [facility] [id number] [place] [address] 42402- 0492 Sep, [facility] [id number] [place] [address] 67469- 4296 Sep, Post-traumatic stress disorder, unspecified F43.10 ; Major depressive disorder, recurrent, moderate F33.1 and Problems related to release from halfway Z65.2 [facility] [address] [address]- 8783 Sep, [facility] [id number] [place] [address] 70821- 4436 Aug, [facility] [id number] [place] [address] 46002- 1376 Aug, Sarcoidosis D86.9 [facility] [address] [address]- 5221 Aug, Sarcoidosis D86.9 [facility] [address] [address]- 6300 Aug, HTN (hypertension) I10 [facility] [address] [address]- 8280 Aug, Post-traumatic stress disorder, unspecified F43.10 ; Major depressive disorder, recurrent, moderate F33.1 and Problems related to release from halfway Z65.2 [facility] [id number] [place] [address] 38730- 4759 Aug, [facility] [id number] [place] [address] 71030- 8181 Aug, Left leg pain M79.605 [facility] [address] 78842- 0047 Jul, Post-traumatic stress disorder, chronic F43.12 ; Anxiety F41.9 ; Problems related to release from halfway Z65.2 and BMI 40.0-44.9, adult Z68.41 [facility] [address] 67944- 1329 20 Jul, 2017 HTN (hypertension) I10 ; Body mass index (BMI) of 40.0-44.9 in adult Z68.41 and Acute swimmer''s ear of both sides H60.333 [place] [address] 09755- 2530 19 Jul, 2017 Glaucoma H40.9 [facility] [address] 01392- 2256 14 Jul, 2017 [facility] [address] 95450- 2526 13 Jul, 2017 Sarcoidosis D86.9 [facility] [address] 36200- 9641 Jul, Left leg pain M79.605 [facility] [address] 18717- 6539 Jul, Sarcoidosis D86.9 [facility] [address] 72894- 6925 Jul, Post-traumatic stress disorder, unspecified F43.10 ; Major depressive disorder, recurrent, moderate F33.1 and Problems related to release from halfway Z65.2 [facility] [address] 01126- 1796 June, [facility] [address] 65043 -2956 June, Sore throat J02.9 and BMI 40.0-44.9, adult Z68.41 [facility] [id number] [place] [address] 15462- 2492 June, [facility] [id number] [place] [address] 86593- 7369 June, [facility] [id number] [place] [address] 33465- 5737 June, [facility] [id number] [place] [address] 11633- 7980 June, Left leg pain M79.605 [facility] [id number] [place] [address] 21729- 8336 June, Sarcoidosis D86.9 [facility] [id number] [place] [address] 08424- 2171 June, [facility] [id number] [place] [address] 82292- 8413 June, [facility] [id number] [place] [address] 57925- 9544 June, Left leg pain M79.605 [facility] [id number] [place] [address] 81979- 0281 May, [facility] [id number] [place] [address] 37287- 3285 May, [facility] [id number] [place] [address] 12674- 3225 May, [facility] [id number] [place] [address] 37084- 4185 May, Left leg pain M79.605 [facility] [id number] [place] [address] 17367- 9120 May, Post-traumatic stress disorder, unspecified F43.10 ; Major depressive disorder, recurrent, moderate F33.1 and Problems related to release from halfway Z65.2 [facility] [id number] [place] [address] 51092- 7363 May, Chronic pain G89.29 ; Anxiety F41.9 ; Chest pain, unspecified type R07.9 and BMI 40.0-44.9, adult Z68.41 [facility] [address] 55565- 9832 30 Apr, 2017 [facility] [id number] [place] [address] 58161- 8324 29 Apr, 2017 Left leg pain M79.605 [facility] [address] 21026- 2136 27 Apr, 2017 Post-traumatic stress disorder, unspecified F43.10 ; Problems related to release from halfway Z65.2 ; Anxiety F41.9 and BMI 40.0-44.9 , adult Z68.41 [facility] [facility] [id number] [place] [address] 26320- 4029 Apr, [facility] [id number] [place] [address] 15405- 0680 Apr, Left leg pain M79.605 [facility] [facility] [id number] [place] [address] 44984- 4667 13 Apr, 2017 Post-traumatic stress disorder, unspecified F43.10 ; Major depressive disorder, recurrent, moderate F33.1 and Problems related to release from halfway Z65.2 [facility] [id number] [place] [address] 76025- 3711 Apr, [facility] [id number] [place] [address] 91822- 3502 Apr, Chronic pain G89.29 ; 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 ; Morbid (severe) obesity due to excess calories E66.01 ; Anxiety F41.9 and BMI 40.0-44.9, adult Z68.41 [facility] [id number] [place] [address] 96690 -2284 Apr, Sore throat J02.9 and BMI 40.0-44.9, adult Z68.41 [place] [address] 80318- 2153 Apr, Left leg pain M79.605 [facility] [id number] [place] [address] [id number] Mar, Dental examination Z01.20 [facility] [address] 01595- 7613 Mar, [facility] [address] 23739 -3027 Mar, Cough R05 ; Viral gastroenteritis A08.4 and BMI 40.0-44.9, adult Z68.41 [place] [address] 09676- 5332 Mar, Left leg pain M79.605 [facility] [facility] [id number] [place] [address] 82842- 5062 06 Mar, 2017 Post-traumatic stress disorder, unspecified F43.10 ; Major depressive disorder, recurrent, moderate F33.1 and Problems related to release from halfway Z65.2 [facility] [facility] [id number] [place] [address] 00886- 6675 Feb, Left leg pain M79.605 [facility] [id number] [place] [address] 64089- 4247 Feb, [place] [address] 03011- 0244 Feb, BMI 40.0-44.9, adult Z68.41 ; Chronic pain syndrome G89.4 ; Migraine without aura and without status migrainosus, not intractable G43.009 ; Mitral valve prolapse I34.1 and 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 [facility] [id number] [place] [address] 76109- 8024 Feb, Post-traumatic stress disorder, chronic F43.12 ; Anxiety F41.9 ; Problems related to release from halfway Z65.2 and BMI 40.0-44.9, adult Z68.41 [facility] [id number] [place] [address] 74214- 2173 Feb, Post-traumatic stress disorder, unspecified F43.10 ; Major depressive disorder, recurrent, moderate F33.1 and Problems related to release from halfway Z65.2 [facility] [id number] [place] [address] 30145- 7619 Feb, Left leg pain M79.605 [facility] [id number] [place] [address] 15304- 2810 Jan, Post-traumatic stress disorder, unspecified F43.10 ; Major depressive disorder, recurrent, moderate F33.1 and Problems related to release from halfway Z65.2 [facility] [facility] [id number] [place] [address] 86726- 4318 Jan, [facility] [id number] [place] [address] 85771- 9933 Jan, [facility] [id number] [place] [address] 41918- 2555 Jan, Anxiety F41.9 [facility] [id number] [place] [address] 74629- 0930 Jan, Left leg pain M79.605 [facility] [id number] [place] [address] 28105- 8649 Dec, Left leg pain M79.605 [facility] [facility] [id number] [place] [address] 98293- 7615 Dec, [facility] [id number] [place] [address] 55265- 6390 Dec, Post-traumatic stress disorder, unspecified F43.10 ; Major depressive disorder, recurrent, moderate F33.1 and Problems related to release from halfway Z65.2 [facility] [id number] [place] [address] 96951- 4799 31 Nov, 2016 Chronic pain G89.29 and Anxiety F41.9 [facility] [facility] [id number] [place] [address]- 4215 24 Nov, 2016 Chronic pain G89.29 and Anxiety F41.9 [facility] [address] 43873- 0415 16 Nov, 2016 Post-traumatic stress disorder, unspecified F43.10 ; Major depressive disorder, recurrent, moderate F33.1 and Problems related to release from halfway Z65.2 [place] [address] 87359- 9730 09 Nov, 2016 Other abnormal findings in specimens from other organs, systems and tissues R89.8 ; Other male erectile dysfunction N52.8 ; Body mass index (BMI) of 40.0-44.9 in adult Z68.41 and Morbid (severe) obesity due to excess calories E66.01 [facility] [id number] [place] [address] 29587- 3911 02 Nov, 2016 Post-traumatic stress disorder, unspecified F43.10 ; Major depressive disorder, recurrent, moderate F33.1 and Problems related to release from halfway Z65.2 [facility] [id number] [place] [address] [id number] Oct, Dental examination Z01.20 [facility] [id number] [place] [address] 51854- 4264 Oct, [facility] [id number] [place] [address] 44368- 8808 Oct, Encounter for immunization Z23 [facility] [address] 04790- 8014 26 Oct, 2016 Chronic pain G89.29 ; Anxiety F41.9 ; Arrhythmia as indication for cardiac pacemaker replacement I49.9 and Glaucoma H40.[address] 68168- 3721 Oct, Anxiety F41.9 ; Post-traumatic stress disorder, chronic F43.12 and Problems related to release from halfway Z65.2 [facility] [facility] [id number] [place] [address]- 5072 07 Oct, 2016 Post-traumatic stress disorder, unspecified F43.10 ; Major depressive disorder, recurrent, moderate F33.1 and Problems related to release from halfway Z65.2 [facility] [id number] [place] [address] 70271- 1186 Sep, Chronic pain G89.29 and Anxiety F41.9 [facility] [facility] [id number] [place] [address] 83757- 7467 Sep, Post-traumatic stress disorder, unspecified F43.10 ; Major depressive disorder, recurrent, moderate F33.1 and Problems related to release from halfway Z65.2 [facility] [facility] [id number] [place] [address] 58641- 7840 Sep, Post-traumatic stress disorder, unspecified F43.10 ; Major depressive disorder, recurrent, moderate F33.1 and Problems related to release from halfway Z65.2 [facility] [facility] [id number] [place] [address] 11923- 4821 Sep, Chronic pain G89.29 [facility] [facility] [id number] [place] [address] 66821- 8436 Aug, Dental caries, unspecified K02.9 [facility] [id number] [place] [address] 49913- 1634 Aug, Sleep apnea, obstructive G47.33 ; Obesity E66.9 ; Chronic pain G89.29 ; HTN (hypertension) I10 ; Major depressive disorder, recurrent, moderate F33.1 ; Anxiety F41.9 ; Chronic tension headaches G44.229 ; Mitral valve prolapse I34.1 ; Arrhythmia as indication for cardiac pacemaker replacement I49.9 ; Dental caries, unspecified K02.9 ; Primary insomnia F51.01 and Hyperlipidemia E78.5 [facility] [address] [address]- 6072 Aug, Post-traumatic stress disorder, unspecified F43.10 ; Major depressive disorder, recurrent, moderate F33.1 and Problems related to release from halfway Z65.2 [facility] [address] [address]- 0530 Aug, Dental examination Z01.20 [facility] [address] [place] [address] [id number] Aug, Dental examination Z01.20 [facility] [id number] [place] [address] 92110- 6175 06 Aug, 2016 Post-traumatic stress disorder, unspecified F43.10 ; Major depressive disorder, recurrent, moderate F33.1 and Problems related to release from halfway Z65.2 [facility] [id number] [place] [address] 38656- 7602 Aug, Chronic pain G89.29 and Primary insomnia F51.01 [facility] [id number] [place] [address] 11685- 4242 Jul, [facility] [id number] [place] [address] 44254- 1536 Jul, [facility] [id number] [place] [address] 91351- 5124 Jul, Nausea R11.0 [facility] [id number] [place] [address] 44401- 0538 Jul, Arrhythmia as indication for cardiac pacemaker replacement I49.9 [facility] [id number] [place] [address] 75144- 6184 Jul, Post-traumatic stress disorder, unspecified F43.10 ; Major depressive disorder, recurrent, moderate F33.1 and Problems related to release from halfway Z65.2 [facility] [id number] [place] [address] 56611- 9250 Jul, Anxiety F41.9 [facility] [facility] [id number] [place] [address] 81858- 9462 08 Jul, 2016 Chronic pain G89.29 [facility] [facility] [id number] [place] [address] 79495- 0114 Jul, Sleep apnea, obstructive G47.33 ; Hyperlipidemia E78.5 ; Chronic pain G89.29 ; Blindness and low vision H54.10 ; Major depressive disorder, recurrent, moderate F33.1 ; Anxiety F41.9 ; Mitral valve prolapse I34.1 ; Arrhythmia as indication for cardiac pacemaker replacement I49.9 ; Primary insomnia F51.01 ; Bilateral headaches R51 and Environmental allergies Z91.[address] 90289- 1830 Jul, Post-traumatic stress disorder, unspecified F43.10 ; Major depressive disorder, recurrent, moderate F33.1 and Problems related to release from halfway Z65.[address] 30092- 8945 June, Post-traumatic stress disorder, chronic F43.12 ; Anxiety F41.9 ; Problems related to release from halfway Z65.2 ; Sleep apnea, obstructive G47.33 and Primary insomnia F51.01 [facility] [facility] [id number] [place] [address] 79567- 1738 June, [facility] [facility] [id number] [place] [address] 56954- 8257 June, [place] [address] 40353- 8209 June, [facility] [facility] [id number] [place] [address] 58094- 7775 June, Chronic pain G89.29 [facility] [id number] [place] [address] 15471- 5048 June, Chronic pain G89.29 [facility] [facility] [id number] [place] [address] 46244- 0630 June, Lipoma of left lower extremity D17.24 ; Open wound T14.8 and Swelling of left lower extremity M79.89 [place] [id number] [place] [address] 91123- 8267 June, Post-traumatic stress disorder, unspecified F43.10 ; Major depressive disorder, recurrent, moderate F33.1 and Problems related to release from halfway Z65.2 [place] [address] 34839- 9242 May, Lipoma of left lower extremity D17.24 ; Major depressive disorder, recurrent, moderate F33.1 ; Sleep apnea, obstructive G47.33 ; Hyperlipidemia E78.5 ; Obesity E66.9 ; HTN (hypertension) I10 ; Glaucoma H40.9 ; CAD (coronary artery disease) I25.10 ; Chronic tension headaches G44.229 ; Chronic pain G89.29 ; Anxiety F41.9 ; Nausea R11.0 and Primary insomnia F51.01 [place] [address] 61381- 9636 May, [place] [address] 63728- 9168 May, Chronic pain G89.29 [place] [address] 19219- 1017 May, [facility] [facility] [id number] [place] [address] 99366- 2515 Apr, Post-traumatic stress disorder, unspecified F43.10 ; Major depressive disorder, recurrent, moderate F33.1 and Problems related to release from halfway Z65.2 [facility] [id number] [place] [address] 92732- 6812 Apr, Primary insomnia F51.01 ; Post-traumatic stress disorder, chronic F43.12 and Problems related to release from halfway Z65.2 [facility] [id number] [place] [address] 02796- 5468 Apr, Post-traumatic stress disorder, unspecified F43.10 ; Major depressive disorder, recurrent, moderate F33.1 and Problems related to release from halfway Z65.2 [facility] [id number] [place] [address] 87590- 3935 16 Apr, 2016 [place] [id number] [place] [address] 04408- 0212 16 Apr, 2016 Sleep apnea, obstructive G47.33 ; Chronic pain G89.29 ; HTN (hypertension) I10 ; Mitral valve prolapse I34.1 ; Shoulder pain, left M25.512 ; Arrhythmia as indication for cardiac pacemaker replacement I49.9 ; Glaucoma H40.9 ; Bilateral headaches R51 ; Environmental allergies Z91.09 ; Primary insomnia F51.01 and Nausea R11.0 [place] [id number] [place] [address] [phone] Apr, [place] [address] [place] [id number] [place] [address] [phone] Apr, [place] [address] [address] [id number] [place] [address] [phone] Apr, Post-traumatic stress disorder, unspecified F43.10 ; Major depressive disorder, recurrent, moderate F33.1 and Problems related to release from halfway Z65.2 [place] [address] [id number] [place] [address] [phone] Apr, HTN (hypertension) I10 [place] [address] [id number] [place] [address] [phone] Apr, HTN (hypertension) I10 [facility] [address] [address] [id number] [place] [address] [phone] 14 Mar, 2016 Chronic pain G89.29 ; Primary insomnia F51.01 and Problems related to release from halfway Z65.2 [place] [address] [place] [id number] [place] [address] 72381- 3824 07 Mar, 2016 Post-traumatic stress disorder, unspecified F43.10 ; Major depressive disorder, recurrent, moderate F33.1 and Problems related to release from halfway Z65.2 [place] [id number] [place] [address] 63369- 5813 Feb, Post-traumatic stress disorder, unspecified F43.10 ; Major depressive disorder, recurrent, moderate F33.1 and Problems related to release from halfway Z65.2 [place] [address] [place] [id number] [place] [address] 74101- 6886 Feb, Chronic tension headaches G44.229 [place] [id number] [place] [address] 80241- 5250 Feb, Sleep apnea, obstructive G47.33 ; Obesity E66.9 ; Hyperlipidemia E78.5 ; Glaucoma H40.9 ; Chronic pain G89.29 ; HTN (hypertension ) I10 ; Blindness and low vision H54.10 ; Open-angle glaucoma of both eyes H40.10X0 ; Chronic tension headaches G44.229 ; Cough R05 ; CAD (coronary artery disease) I25.10 ; Problems related to release from halfway Z65.2 ; Arrhythmia as indication for cardiac pacemaker replacement I49.9 and Primary insomnia F51.01 [place] [id number] [place] [address] 94256- 1559 Feb, Post-traumatic stress disorder, unspecified F43.10 and Chronic pain G89.29 [id number] [place] [address] 58674- 5402 Feb, [facility] [id number] [place] [address] [id number] Feb, Dental caries K02.[id number] [place] [address] 09855- 5239 Feb, [address] 66950- 1680 Feb, Post-traumatic stress disorder, unspecified F43.10 ; Major depressive disorder, recurrent, moderate F33.1 and Problems related to release from halfway Z65.2 [place] [address] [place] [id number] [place] [address] 97930- 1543 Jan, Sleep apnea, obstructive G47.33 and Chronic pain G89.29 [place] [address] [address] 7806 Jan, [place] [address] [place] [id number] [place] [address] 07213- 6296 14 Jan, 2016 Dental examination Z01.20 [place] [address] [place] [id number] [place] [address] 13145- 0572 Jan, [place] [address] [place] [id number] [place] [address] 39708- 0187 Jan, [place] [address] [place] [id number] [place] [address] 95280- 6584 Dec, Post-traumatic stress disorder, unspecified F43.10 ; Major depressive disorder, recurrent, moderate F33.1 and Problems related to release from halfway Z65.2 [place] [id number] [place] [address] 83777- 5871 Dec, Encounter for immunization Z23 ; Problems related to release from halfway Z65.2 ; Sleep apnea, obstructive G47.33 and Post-traumatic stress disorder, chronic F43.12 [place] [id number] [place] [address] 85851- 5700 18 Dec, 2015 Sleep apnea, obstructive G47.33 ; Hyperlipidemia E78.5 ; Chronic pain G89.29 ; Glaucoma H40.9 ; HTN (hypertension) I10 ; Post-traumatic stress disorder, unspecified F43.10 ; Anxiety F41.9 ; Chronic tension headaches G44.229 ; Mitral valve prolapse I34.1 and CAD (coronary artery disease) I25.10 [place] [id number] [place] [address] 68725- 3055 15 Dec, 2015 Post-traumatic stress disorder, unspecified F43.10 ; Major depressive disorder, recurrent, moderate F33.1 and Problems related to release from halfway Z65.2 [place] [id number] [place] [address] 78973- 5192 Nov, Chronic pain G89.29 [place] [address] [address] 5008 Nov, Post-traumatic stress disorder, unspecified F43.10 ; Major depressive disorder, recurrent, moderate F33.1 and Problems related to release from halfway Z65.2 [place] [address] [address]- 8086 Oct, [place] [address] [place] [id number] [place] [address] 84794- 0118 Oct, [place] [address] [place] [id number] [place] [address] 29272- 1092 Oct, Post-traumatic stress disorder, unspecified F43.10 ; Major depressive disorder, recurrent, moderate F33.1 and Problems related to release from halfway Z65.2 [place] [address] [place] [id number] [place] [address] 91044- 1198 08 Oct, 2015 [place] [address] [place] [id number] [place] [address] 90084- 6764 07 Oct, 2015 Environmental allergies Z91.09 ; Cough R05 and Open-angle glaucoma of both eyes H40.10X0 [place] [address] [address]- 6021 Sep, [place] [address] [address]- 0544 Sep, Post-traumatic stress disorder, unspecified F43.10 ; Major depressive disorder, recurrent, moderate F33.1 and Problems related to release from halfway Z65.2 [place] [address] [address]- 4530 Sep, Chronic pain G89.29 [place] [address] [place] [id number] [place] [address] 91115- 8576 Sep, Pain in left shoulder M25.512 ; Pain in right shoulder M25.511 and Other chronic pain G89.29 [place] [address] [place] [id number] [address] 7413 Sep, [facility] [address] [address]- 6265 Sep, [facility] [address] 4870 Sep, [facility] [address] [id number] Aug, Dental examination Z01.20 [facility] [address] [place] [id number] [place] [address] 87084- 0232 Aug, Post-traumatic stress disorder, unspecified F43.10 ; Open- angle glaucoma of both eyes H40.10X0 and Problems related to release from halfway Z65.2 [facility] [id number] [place] [address] 59721- 0764 Aug, [facility] [address] [place] [id number] [place] [address] 45833- 1258 Aug, Sleep apnea, obstructive G47.33 ; Obesity E66.9 ; Hyperlipidemia E78.5 ; Bilateral headaches R51 ; HTN (hypertension) I10 ; Post- traumatic stress disorder, unspecified F43.10 ; Anxiety F41.9 ; Neuropathy G62.9 ; Glaucoma H40.9 and Chronic pain G89.29 [facility] [address] [place] [id number] [id number] Aug, Encounter for dental examination Z01.20 [facility] [id number] [place] [address] 37638- 6879 Aug, Post-traumatic stress disorder, unspecified F43.10 ; Major depressive disorder, recurrent, moderate F33.1 and Problems related to release from halfway Z65.2 [facility] [address] [address]- 7168 Aug, [facility] [address] [address]- 2211 Jul, [facility] [address] [place] [id number] [address]- 2465 Jul, Post-traumatic stress disorder, unspecified F43.10 and Major depressive disorder, recurrent, moderate F33.1 [facility] [address] [address]- 6190 Jul, [facility] [address], [place] [address]- 4062 Jul, [facility] [address] [place] [id number] [place] [address] 52199- 2980 Jul, Chronic pain G89.29 [facility] [address] [place] [id number] [place] [address] 25800- 7748 June, Post-traumatic stress disorder, unspecified F43.10 and Major depressive disorder, recurrent, moderate F33.1 [facility] [address], [place] [address]- 1911 June, [facility] [id number] [place] [address] 13311- 2108 June, Chronic pain G89.29 [facility] [id number] [place] [address] 27327- 8996 June, Post-traumatic stress disorder, unspecified F43.10 and Major depressive disorder, recurrent, moderate F33.1 [facility] [address] [address]- 1781 May, Post-traumatic stress disorder, unspecified F43.10 and Major depressive disorder, recurrent, moderate F33.1 [facility] [address] [address]- 2529 May, [facility] [id number] [place] [address] 38897- 8697 May, [facility] [address], [place] [address]- 7894 May, [facility] [address] [place] [id number] [place] [address] 41206- 3448 Apr, [facility] [address] [place] [id number] [place] [address] 28745- 6487 Apr, Post-traumatic stress disorder, unspecified F43.10 and Sleep apnea, obstructive G47.33 [facility] [address] [place] [id number] [place] [address] 61799- 8194 Apr, [facility] [address] [place] [id number] [place] [address] 33251- 3465 Apr, Shoulder pain, left M25.512 [facility] [address] [place] [id number] [place] [address] 18242- 6331 Apr, Post-traumatic stress disorder, unspecified F43.10 and Major depressive disorder, recurrent, moderate F33.1 [place] [address] [place] [id number] [place] [address] 11260- 5115 17 Apr, 2015 [facility] [address] [place] [id number] [place] [address] 13286- 6306 Apr, [facility] [address] [place] [id number] [place] [address] 72023- 5133 08 Apr, 2015 [facility] [address] [place] [id number] [place] [address] 80265- 2818 Apr, Left shoulder pain M25.512 [facility] [address] [place] [id number] [place] [address] 47578- 4920 Mar, [facility] [address] [place] [id number] [place] [address] 76886- 1551 Mar, [facility] [address] [place] [id number] [place] [address] 05065- 3414 Mar, [facility] [address] [place] [id number] [place] [address] 83509- 0183 12 Mar, 2015 Sleep apnea, obstructive G47.33 ; Obesity E66.9 ; Chronic pain G89.29 ; Hyperlipidemia E78.5 ; HTN (hypertension) I10 ; Blindness and low vision H54.10 ; Major depressive disorder, recurrent, moderate F33.1 and Anxiety F41.9 [place] [address] [place] [id number] [place] [address] 06199- 9773 Mar, [place] [address] [place] [id number] [place] [address] 73076- 4115 Mar, Post-traumatic stress disorder, unspecified F43.10 and Major depressive disorder, recurrent, moderate F33.1 [place] [address] [place] [id number] [place] [address] 84536- 2827 Mar, [place] [id number] [place] [address] 01978- 2303 04 Mar, 2015 HTN (hypertension) I10 ; Blindness and low vision H54.10 ; Obesity E66.9 ; Hyperlipidemia E78.5 ; Glaucoma H40.9 ; Chronic pain G89.29 and CAD (coronary artery disease) I25.10 [place] [address] [place] [id number] [place] [address] 56096- 0847 Feb, [place] [address] [place] [id number] [place] [address] 32753- 9311 Feb, Post-traumatic stress disorder, unspecified F43.10 ; Obesity E66.9 ; Sleep apnea, obstructive G47.33 and Open-angle glaucoma of both eyes H40.10X0 [place] [id number] [place] [address] 90342- 4702 Feb, Post-traumatic stress disorder, unspecified F43.10 and Major depressive disorder, recurrent, moderate F33.1 [place] [id number] [place] [address] 93091- 3690 Feb, [address] 44678- 5888 Feb, [place] [address] [place] [id number] [place] [address] 51636- 9028 Feb, HTN (hypertension) I10 ; Post-traumatic stress disorder, unspecified F43.10 ; Blindness and low vision H54.10 ; Obesity E66.9 ; Hyperlipidemia E78.5 ; Chronic pain G89.29 ; Glaucoma H40.9 ; Mitral valve prolapse I34.1 and Bilateral headaches R51 [place] [address] [place] [id number] [place] [address] 06662- 4611 Feb, [place] [address] 43836- 9332 Feb, Post-traumatic stress disorder, unspecified F43.10 and Major depressive disorder, recurrent, moderate F33.1 [place] [address] 59647- 7873 Feb, [place] [address] 68008- 7518 Feb, [place] [address] 93021- 2542 Jan, [place] [address] 61310- 3119 Jan, [place] [address] 03517- 8070 Jan, Obesity E66.9 ; HTN (hypertension) I10 ; Blindness and low vision H54.10 ; Major depressive disorder, recurrent, moderate F33.1 ; Glaucoma H40.9 ; Hyperlipidemia E78.5 ; Sleep apnea, obstructive G47.33 ; Chronic pain G89.29 ; Anxiety F41.9 ; Chronic tension headaches G44.229 and Cough R05 [place] [address] [place] [id number] [place] [address] 55018- 4482 Jan, [address] 26350- 7692 Jan, [place] [id number] [place] [address] 72486- 7355 Jan, Post-traumatic stress disorder, unspecified F43.10 ; Obesity E66.9 ; Sleep apnea, obstructive G47.33 and Open-angle glaucoma of both eyes H40.10X0 [place] [address] [place] [id number] [place] [address]- 7126 Jan, [address] 8103 Jan, Post-traumatic stress disorder, unspecified F43.10 and Major depressive disorder, recurrent, moderate F33.1 [place] [address]4320- 1807 Dec, [place] [address] [place] 709854- 3557 Dec, Sleep apnea, obstructive G47.33 ; Obesity E66.9 ; Hyperlipidemia E78.5 ; Glaucoma H40.9 ; Chronic pain G89.29 ; HTN (hypertension ) I10 ; Blindness and low vision H54.10 ; Anxiety F41.9 and CAD (coronary artery disease) I25.10 [place] [address] 24831- 6665 Nov, [address] 072143- 6391 Nov, [place] [address] 75626- 5390 Nov, [address] 57050- 7573 Nov, [place] [address] [place] [id number]- 9294 Nov, [address] 77192- 7437 Nov, Encounter for immunization Z23 ; Sleep apnea, obstructive G47.33 ; Obesity E66.9 ; Hyperlipidemia E78.5 ; Glaucoma H40.9 ; Chronic pain G89.29 ; Anxiety F41.9 ; Chronic tension headaches G44.229 and HTN (hypertension ) I10 [address] [place] [address]- 3351 19 Nov, 2014 [facility] [address] [place] [id number] [place] [address] 58084- 7609 14 Nov, 2014 [facility] [address] [place] [id number] [place] [address] 93645- 1841 06 Nov, 2014 Dizziness R42 [facility] [address] [place] [id number] [place] [address] 10371- 5514 Nov, [facility] [address] [place] [id number] [place] [address] 79697- 3165 29 Oct, 2014 [facility] [address] [place] [id number] [place] [address] 56484- 1635 28 Oct, 2014 [facility] [address] [place] [id number] [place] [address] 62934- 9122 Oct, [facility] [address] [place] [id number] [place] [address] 59054- 4918 Oct, [facility] [address] [place] [id number] [place] [address] 77057- 2260 17 Oct, 2014 Dizziness 780.4 ; Essential hypertension 401.9 ; Obesity 278.00 ; Hyperlipidemia 272.4 ; Chronic pain 338.29 ; Glaucoma 365.9 and Anxiety 300.00 [facility] [address] [place] [id number] [place] [address] 67212- 6411 Oct, Essential hypertension 401.9 ; Hyperlipidemia 272.4 ; Glaucoma 365.9 ; Obesity 278.00 ; Chronic pain 338.29 and Allergy to insects V15.06 [facility] [address] [place] [id number] [place] [address] 21273- 9867 Sep, [facility] [address] [place] [id number] [place] [address] 85946- 8561 Sep, [facility] [address] [place] [id number] [place] [address] 45043- 3754 Sep, [facility] [address] [place] [id number] [place] [address] 63371- 4059 Sep, [facility] [address] [facility] [id number] [place] [address]- 1312 Aug, Essential hypertension 401.9 ; Obesity 278.00 ; Hyperlipidemia 272.4 ; Glaucoma 365.9 ; Lipoma 214.9 ; Mitral valve prolapse 424.0 ; Angina at rest 413.9 ; Lymphedema 457.1 and Chronic pain 338.29 IMMUNIZATIONS No Known Immunizations SOCIAL HISTORY Never Assessed REASON FOR VISIT Controlled Medication Refill PLAN OF CARE VITAL SIGNS MEDICATIONS Medication Instructions Dosage Frequency Start Date End Date Duration Status Hydrocodone-Acetaminophen 7.5-325 MG Orally 4 times a day 1 tablet 6h Jul, Active RESULTS No Results PROCEDURES No Known [...]
--- OUTSIDE RECORDS SUMMARY | 2018-02-04 14:38 | XMS REPORT ---
Author Author ALENA ÁLVAREZ [facility] Address [address] [place] [address] Care Team Providers Care House Painter Helper Name Role Phone ALENA ÁLVAREZ Unavailable PROBLEMS Type Condition ICD9-CM Code SPL28-EO Code Onset Dates Condition Status SNOMED Code Problem Hyperlipidemia E78.5 Active 73391470 Problem Arrhythmia as indication for cardiac pacemaker replacement I49.9 Active 16647405 Problem Sleep apnea, obstructive G47.33 Active 95467772 Problem Primary insomnia F51.01 Active 9560649 Problem Chronic pain G89.29 Active 69686294 Problem Morbid (severe) obesity due to excess calories E66.01 Active 305206551 Problem Body mass index (BMI) of 40.0-44.9 in adult Z68.41 Active 101229108 Problem Other male erectile dysfunction N52.8 Active 208708468 Problem Supraventricular tachycardia I47.1 Active 8485420 Problem Sarcoidosis D86.9 Active 37926578 Problem HTN (hypertension) I10 Active 33583390 Problem Blindness and low vision H54.10 Active 154418863 Problem Myocarditis, unspecified chronicity, 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 Active 65191966 Problem Migraine without aura and without status migrainosus, not intractable G43.009 Active 559328568 Problem 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 Active 612716214 Problem Problems related to release from snf Z65.2 Active [id number] Problem Chronic pain syndrome G89.4 Active 151217698 Problem Major depressive disorder, recurrent, moderate F33.1 Active 18402390 Problem Open-angle glaucoma of both eyes H40.10X0 Active 41680603 Problem Chronic tension headaches G44.229 Active 059349145 Problem Anxiety F41.9 Active 64412202 Problem Post-traumatic stress disorder, chronic F43.12 Active 161976583 Problem Environmental allergies Z91.09 Active 196034354 Problem Mitral valve prolapse I34.1 Active 292212114 Problem CAD (coronary artery disease) I25.10 Active 86485023 ALLERGIES No Information ENCOUNTERS Encounter Location Date Diagnosis [facility] [id number] [place] [address] 79196- 4661 Oct, [facility] [id number] [place] [address] 79529- 1128 Oct, [facility] [id number] [place] [address] 91416- 8819 Oct, [facility] [address] 16766- 9431 Sep, Arrhythmia as indication for cardiac pacemaker replacement I49.9 [facility] [address] 56287- 5985 Sep, [facility] [id number] [place] [address] 78496- 9366 Sep, HTN (hypertension) I10 [facility] [id number] [place] [address] 46958- 5275 Sep, [facility] [id number] [place] [address] 71551- 3586 16 Sep, 2017 Body mass index (BMI) of 40.0-44.9 in adult Z68.41 ; Chronic pain G89.29 and Supraventricular tachycardia I47.1 [facility] [id number] [place] [address] 08669- 0358 Sep, [facility] [id number] [place] [address] 82367- 3944 Sep, Sarcoidosis D86.9 [facility] [id number] [place] [address] 18224- 3300 Sep, Sarcoidosis D86.9 [facility] [id number] [place] [address] 55627- 5626 Sep, [facility] [id number] [place] [address] 25849- 4301 Sep, [facility] [address] [address] 8982 Sep, [facility] [id number] [place] [address] 37132- 5362 Sep, [facility] [id number] [place] [address] 06943- 0709 Sep, Left leg pain M79.605 [facility] [id number] [place] [address] 00916- 9807 Sep, HTN (hypertension) I10 [facility] [id number] [place] [address] 42421- 9993 Sep, [facility] [address] [place] [address] 90062- 5371 Sep, Post-traumatic stress disorder, unspecified F43.10 ; Major depressive disorder, recurrent, moderate F33.1 and Problems related to release from snf Z65.2 [facility] [address] [address] 1227 Sep, [facility] [id number] [place] [address] 07220- 1912 Aug, [facility] [id number] [place] [address] 24373- 6010 Aug, Sarcoidosis D86.9 [facility] [address] [address] 5723 Aug, Sarcoidosis D86.9 [facility] [address] [place] [address] 6462 Aug, HTN (hypertension) I10 [facility] [address] [place] [address]- 5932 Aug, Post-traumatic stress disorder, unspecified F43.10 ; Major depressive disorder, recurrent, moderate F33.1 and Problems related to release from snf Z65.2 [facility] [address] [place] [address] 59223- 6218 Aug, [facility] [id number] [place] [address] 89512- 5414 Aug, Left leg pain M79.605 [facility] [address] 06134- 2221 Jul, Post-traumatic stress disorder, chronic F43.12 ; Anxiety F41.9 ; Problems related to release from snf Z65.2 and BMI 40.0-44.9, adult Z68.41 [facility] [address] 34406- 8919 20 Jul, 2017 HTN (hypertension) I10 ; Body mass index (BMI) of 40.0-44.9 in adult Z68.41 and Acute swimmer''s ear of both sides H60.333 [facility] [address] 72364- 9390 19 Jul, 2017 Glaucoma H40.9 [facility] [address] 70799- 1529 14 Jul, 2017 [facility] [address] 35790- 6016 13 Jul, 2017 Sarcoidosis D86.9 [facility] [address] 01860- 3960 Jul, Left leg pain M79.605 [facility] [address] 56185- 2617 Jul, Sarcoidosis D86.9 [facility] [address] 08886- 7841 Jul, Post-traumatic stress disorder, unspecified F43.10 ; Major depressive disorder, recurrent, moderate F33.1 and Problems related to release from snf Z65.2 [facility] [address] 08772- 6197 June, [facility] [address] 89805 -1830 June, Sore throat J02.9 and BMI 40.0-44.9, adult Z68.41 [facility] [id number] [place] [address] 82857- 1145 June, [facility] [id number] [place] [address] 14899- 6587 June, [facility] [id number] [place] [address] 83934- 3998 June, [facility] [id number] [place] [address] 35153- 4746 June, Left leg pain M79.605 [facility] [id number] [place] [address] 29902- 7430 June, Sarcoidosis D86.9 [facility] [id number] [place] [address] 32090- 1867 June, [facility] [id number] [place] [address] 24514- 3990 June, [facility] [id number] [place] [address] 43164- 6439 June, Left leg pain M79.605 [facility] [id number] [place] [address] 44423- 8159 May, [facility] [id number] [place] [address] 49842- 0080 May, [facility] [id number] [place] [address] 33427- 9149 May, [facility] [id number] [place] [address] 47982- 0347 May, Left leg pain M79.605 [facility] [address] [place] [address] 78187- 1916 May, Post-traumatic stress disorder, unspecified F43.10 ; Major depressive disorder, recurrent, moderate F33.1 and Problems related to release from snf Z65.2 [facility] [id number] [place] [address] 73823- 4926 May, Chronic pain G89.29 ; Anxiety F41.9 ; Chest pain, unspecified type R07.9 and BMI 40.0-44.9, adult Z68.41 [facility] [address] 49493- 1430 30 Apr, 2017 [facility] [id number] [place] [address] 22959- 5297 29 Apr, 2017 Left leg pain M79.605 [facility] [address] 59737- 7386 27 Apr, 2017 Post-traumatic stress disorder, unspecified F43.10 ; Problems related to release from snf Z65.2 ; Anxiety F41.9 and BMI 40.0-44.9 , adult Z68.41 [facility] [id number] [place] [address] 05866- 2885 Apr, [facility] [id number] [place] [address] 11725- 3597 Apr, Left leg pain M79.605 [facility] [id number] [place] [address] 63963- 4346 13 Apr, 2017 Post-traumatic stress disorder, unspecified F43.10 ; Major depressive disorder, recurrent, moderate F33.1 and Problems related to release from snf Z65.2 [facility] [id number] [place] [address] 41567- 2875 Apr, [facility] [id number] [place] [address] 40228- 5897 Apr, Chronic pain G89.29 ; 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 [id number] [place] [address] 63998 -1830 Apr, Sore throat J02.9 and BMI 40.0-44.9, adult Z68.41 [facility] [address] 51836- 4347 Apr, Left leg pain M79.605 [facility] [address] [place] [address] [id number] Mar, Dental examination Z01.20 [facility] [address] 03488- 7789 Mar, [facility] [address] 88752 -6218 Mar, Cough R05 ; Viral gastroenteritis A08.4 and BMI 40.0-44.9, adult Z68.41 [facility] [address] 36054- 1241 Mar, Left leg pain M79.605 [facility] [id number] [place] [address] 06923- 5264 06 Mar, 2017 Post-traumatic stress disorder, unspecified F43.10 ; Major depressive disorder, recurrent, moderate F33.1 and Problems related to release from snf Z65.2 [facility] [id number] [place] [address] 15731- 5735 Feb, Left leg pain M79.605 [facility] [id number] [place] [address] 85619- 5401 Feb, [facility] [address] 79800- 8696 Feb, BMI 40.0-44.9, adult Z68.41 ; Chronic pain syndrome G89.4 ; Migraine without aura and without status migrainosus, not intractable G43.009 ; Mitral valve prolapse I34.1 and 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 [facility] [id number] [place] [address] 46932- 6685 Feb, Post-traumatic stress disorder, chronic F43.12 ; Anxiety F41.9 ; Problems related to release from snf Z65.2 and BMI 40.0-44.9, adult Z68.41 [facility] [id number] [place] [address] 91425- 9440 Feb, Post-traumatic stress disorder, unspecified F43.10 ; Major depressive disorder, recurrent, moderate F33.1 and Problems related to release from snf Z65.2 [facility] [id number] [place] [address] 48183- 0240 Feb, Left leg pain M79.605 [facility] [id number] [place] [address] 40352- 4278 Jan, Post-traumatic stress disorder, unspecified F43.10 ; Major depressive disorder, recurrent, moderate F33.1 and Problems related to release from snf Z65.2 [facility] [id number] [place] [address] 69379- 2364 Jan, [facility] [id number] [place] [address] 27221- 8178 Jan, [facility] [id number] [place] [address] 71504- 1220 Jan, Anxiety F41.9 [facility] [id number] [place] [address] 41458- 2491 Jan, Left leg pain M79.605 [facility] [id number] [place] [address] 20726- 5382 Dec, Left leg pain M79.605 [facility] [id number] [place] [address] 65388- 1700 Dec, [facility] [id number] [place] [address] 38667- 6992 Dec, Post-traumatic stress disorder, unspecified F43.10 ; Major depressive disorder, recurrent, moderate F33.1 and Problems related to release from snf Z65.2 [facility] [id number] [place] [address] 43288- 3930 31 Nov, 2016 Chronic pain G89.29 and Anxiety F41.9 [facility] [id number] [place] [address]- 5959 24 Nov, 2016 Chronic pain G89.29 and Anxiety F41.9 [facility] [address] 06400- 5259 16 Nov, 2016 Post-traumatic stress disorder, unspecified F43.10 ; Major depressive disorder, recurrent, moderate F33.1 and Problems related to release from snf Z65.2 [facility] [address] 96128- 8999 09 Nov, 2016 Other abnormal findings in specimens from other organs, systems and tissues R89.8 ; Other male erectile dysfunction N52.8 ; Body mass index (BMI) of 40.0-44.9 in adult Z68.41 and Morbid (severe) obesity due to excess calories E66.01 [facility] [id number] [place] [address] 56284- 8677 02 Nov, 2016 Post-traumatic stress disorder, unspecified F43.10 ; Major depressive disorder, recurrent, moderate F33.1 and Problems related to release from snf Z65.2 [facility] [id number] [place] [address] [id number] Oct, Dental examination Z01.20 [facility] [id number] [place] [address] 59918- 0903 Oct, [facility] [id number] [place] [address] 05173- 6774 Oct, Encounter for immunization Z23 [facility] [address] 45295- 6879 26 Oct, 2016 Chronic pain G89.29 ; Anxiety F41.9 ; Arrhythmia as indication for cardiac pacemaker replacement I49.9 and Glaucoma H40.[address] 28991- 6943 Oct, Anxiety F41.9 ; Post-traumatic stress disorder, chronic F43.12 and Problems related to release from snf Z65.2 [facility] [id number] [place] [address]- 0378 07 Oct, 2016 Post-traumatic stress disorder, unspecified F43.10 ; Major depressive disorder, recurrent, moderate F33.1 and Problems related to release from snf Z65.2 [facility] [address] [place] [address] 90117- 4454 Sep, Chronic pain G89.29 and Anxiety F41.9 [facility] [id number] [place] [address] 87774- 6969 Sep, Post-traumatic stress disorder, unspecified F43.10 ; Major depressive disorder, recurrent, moderate F33.1 and Problems related to release from snf Z65.2 [facility] [id number] [place] [address] 10224- 8694 Sep, Post-traumatic stress disorder, unspecified F43.10 ; Major depressive disorder, recurrent, moderate F33.1 and Problems related to release from snf Z65.2 [facility] [address] [place] [address] 17505- 0680 Sep, Chronic pain G89.29 [facility] [id number] [place] [address] 97937- 1552 Aug, Dental caries, unspecified K02.9 [facility] [id number] [place] [address] 22970- 2007 Aug, Sleep apnea, obstructive G47.33 ; Obesity E66.9 ; Chronic pain G89.29 ; HTN (hypertension) I10 ; Major depressive disorder, recurrent, moderate F33.1 ; Anxiety F41.9 ; Chronic tension headaches G44.229 ; Mitral valve prolapse I34.1 ; Arrhythmia as indication for cardiac pacemaker replacement I49.9 ; Dental caries, unspecified K02.9 ; Primary insomnia F51.01 and Hyperlipidemia E78.5 [facility] [address] [place] [address]- 5530 Aug, Post-traumatic stress disorder, unspecified F43.10 ; Major depressive disorder, recurrent, moderate F33.1 and Problems related to release from snf Z65.2 [facility] [address] [place] [address]- 7522 Aug, Dental examination Z01.20 [facility] [address] [place] [address] [id number] Aug, Dental examination Z01.20 [facility] [id number] [place] [address] 99733- 5862 06 Aug, 2016 Post-traumatic stress disorder, unspecified F43.10 ; Major depressive disorder, recurrent, moderate F33.1 and Problems related to release from snf Z65.2 [facility] [id number] [place] [address] 79960- 7572 Aug, Chronic pain G89.29 and Primary insomnia F51.01 [facility] [id number] [place] [address] 55527- 8006 Jul, [facility] [id number] [place] [address] 08118- 3420 Jul, [facility] [id number] [place] [address] 65080- 1356 Jul, Nausea R11.0 [facility] [id number] [place] [address] 14172- 5951 Jul, Arrhythmia as indication for cardiac pacemaker replacement I49.9 [facility] [id number] [place] [address] 95394- 1734 Jul, Post-traumatic stress disorder, unspecified F43.10 ; Major depressive disorder, recurrent, moderate F33.1 and Problems related to release from snf Z65.2 [facility] [address] [place] [address] 45125- 5863 Jul, Anxiety F41.9 [facility] [id number] [place] [address] 91906- 5642 08 Jul, 2016 Chronic pain G89.29 [facility] [id number] [place] [address] 89553- 0317 Jul, Sleep apnea, obstructive G47.33 ; Hyperlipidemia E78.5 ; Chronic pain G89.29 ; Blindness and low vision H54.10 ; Major depressive disorder, recurrent, moderate F33.1 ; Anxiety F41.9 ; Mitral valve prolapse I34.1 ; Arrhythmia as indication for cardiac pacemaker replacement I49.9 ; Primary insomnia F51.01 ; Bilateral headaches R51 and Environmental allergies Z91.[address] 24133- 8548 Jul, Post-traumatic stress disorder, unspecified F43.10 ; Major depressive disorder, recurrent, moderate F33.1 and Problems related to release from snf Z65.[address] 72487- 4800 June, Post-traumatic stress disorder, chronic F43.12 ; Anxiety F41.9 ; Problems related to release from snf Z65.2 ; Sleep apnea, obstructive G47.33 and Primary insomnia F51.01 [facility] [id number] [place] [address] 26939- 5639 June, [facility] [id number] [place] [address] 83445- 9418 June, [facility] [address] 42912- 9349 June, [facility] [id number] [place] [address] 82374- 7235 June, Chronic pain G89.29 [facility] [id number] [place] [address] 70633- 9220 June, Chronic pain G89.29 [facility] [id number] [place] [address] 29153- 6934 June, Lipoma of left lower extremity D17.24 ; Open wound T14.8 and Swelling of left lower extremity M79.89 [facility] [address] [place] [address] 55354- 8684 June, Post-traumatic stress disorder, unspecified F43.10 ; Major depressive disorder, recurrent, moderate F33.1 and Problems related to release from snf Z65.2 [facility] [address] 56558- 3071 May, Lipoma of left lower extremity D17.24 ; Major depressive disorder, recurrent, moderate F33.1 ; Sleep apnea, obstructive G47.33 ; Hyperlipidemia E78.5 ; Obesity E66.9 ; HTN (hypertension) I10 ; Glaucoma H40.9 ; CAD (coronary artery disease) I25.10 ; Chronic tension headaches G44.229 ; Chronic pain G89.29 ; Anxiety F41.9 ; Nausea R11.0 and Primary insomnia F51.01 [facility] [address] 02109- 5872 May, [facility] [address] 65005- 2518 May, Chronic pain G89.29 [facility] [address] 07077- 2620 May, [facility] [id number] [place] [address] 75729- 8318 Apr, Post-traumatic stress disorder, unspecified F43.10 ; Major depressive disorder, recurrent, moderate F33.1 and Problems related to release from snf Z65.2 [facility] [address] [place] [address] 68617- 4516 Apr, Primary insomnia F51.01 ; Post-traumatic stress disorder, chronic F43.12 and Problems related to release from snf Z65.2 [facility] [id number] [place] [address] 61737- 0900 Apr, Post-traumatic stress disorder, unspecified F43.10 ; Major depressive disorder, recurrent, moderate F33.1 and Problems related to release from snf Z65.2 [facility] [id number] [place] [address] 95145- 1196 16 Apr, 2016 [facility] [id number] [place] [address] 35520- 4026 16 Apr, 2016 Sleep apnea, obstructive G47.33 ; Chronic pain G89.29 ; HTN (hypertension) I10 ; Mitral valve prolapse I34.1 ; Shoulder pain, left M25.512 ; Arrhythmia as indication for cardiac pacemaker replacement I49.9 ; Glaucoma H40.9 ; Bilateral headaches R51 ; Environmental allergies Z91.09 ; Primary insomnia F51.01 and Nausea R11.0 [facility] [id number] [place] [address] 69687- 6167 Apr, [facility] [id number] [place] [address] 26696- 7110 Apr, [facility] [id number] [place] [address] 21670- 9904 Apr, Post-traumatic stress disorder, unspecified F43.10 ; Major depressive disorder, recurrent, moderate F33.1 and Problems related to release from snf Z65.2 [facility] [id number] [place] [address] 39859- 6920 Apr, HTN (hypertension) I10 [facility] [id number] [place] [address] 97450- 0972 Apr, HTN (hypertension) I10 [facility] [id number] [place] [address] 54836- 1893 14 Mar, 2016 Chronic pain G89.29 ; Primary insomnia F51.01 and Problems related to release from snf Z65.2 [facility] [id number] [place] [address] 48095- 3289 07 Mar, 2016 Post-traumatic stress disorder, unspecified F43.10 ; Major depressive disorder, recurrent, moderate F33.1 and Problems related to release from snf Z65.2 [place] [id number] [place] [address] [phone] Feb, Post-traumatic stress disorder, unspecified F43.10 ; Major depressive disorder, recurrent, moderate F33.1 and Problems related to release from snf Z65.2 [place] [address] [place] [id number] [place] [address] [id number]- [phone] Feb, Chronic tension headaches G44.229 [place] [id number] [place] [address] 45230- [phone] Feb, Sleep apnea, obstructive G47.33 ; Obesity [...] pacemaker replacement I49.9 and Primary insomnia F51.01 [place] [id number] [place] [address] [phone] Feb, Post-traumatic stress disorder, unspecified F43.10 and Chronic pain G89.29 [id number] [place] [address] 84493- 1252 Feb, [facility] [id number] [place] [address] [id number] Feb, Dental caries K02.[id number] [place] [address] 08905- 0632 Feb, [address] 87331- 2859 Feb, Post-traumatic stress disorder, unspecified F43.10 ; Major depressive disorder, recurrent, moderate F33.1 and Problems related to release from snf Z65.2 [place] [id number] [place] [address] 41092- 3254 Jan, Sleep apnea, obstructive G47.33 and Chronic pain G89.29 [place] [facility] [address] [address] 2[address] Jan, [facility] [id number] [place] [address] 10914- 3371 14 Jan, 2016 Dental examination Z01.20 [facility] [id number] [place] [address] 80543- 9990 Jan, [facility] [id number] [place] [address] 96807- 5153 Jan, [facility] [id number] [place] [address] 22458- 0126 Dec, Post-traumatic stress disorder, unspecified F43.10 ; Major depressive disorder, recurrent, moderate F33.1 and Problems related to release from snf Z65.2 [place] [id number] [place] [address] 95243- 3737 Dec, Encounter for immunization Z23 ; Problems related to release from snf Z65.2 ; Sleep apnea, obstructive G47.33 and Post-traumatic stress disorder, chronic F43.12 [place] [id number] [place] [address] 52398- 8055 18 Dec, 2015 Sleep apnea, obstructive G47.33 ; Hyperlipidemia E78.5 ; Chronic pain G89.29 ; Glaucoma H40.9 ; HTN (hypertension) I10 ; Post-traumatic stress disorder, unspecified F43.10 ; Anxiety F41.9 ; Chronic tension headaches G44.229 ; Mitral valve prolapse I34.1 and CAD (coronary artery disease) I25.10 [facility] [id number] [place] [address] 00106- 5942 15 Dec, 2015 Post-traumatic stress disorder, unspecified F43.10 ; Major depressive disorder, recurrent, moderate F33.1 and Problems related to release from snf Z65.2 [place] [id number] [place] [address] 83997- 1193 Nov, Chronic pain G89.29 [place] [address] [address] 5337 Nov, Post-traumatic stress disorder, unspecified F43.10 ; Major depressive disorder, recurrent, moderate F33.1 and Problems related to release from snf Z65.2 [place] [facility] [address], [place] [address] 1877 Oct, [facility] [id number] [place] [address] 77375- 5139 Oct, [facility] [id number] [place] [address] 56712- 6474 Oct, Post-traumatic stress disorder, unspecified F43.10 ; Major depressive disorder, recurrent, moderate F33.1 and Problems related to release from snf Z65.2 [facility] [id number] [place] [address] 12902- 9570 08 Oct, 2015 [facility] [id number] [place] [address] 95004- 8026 07 Oct, 2015 Environmental allergies Z91.09 ; Cough R05 and Open-angle glaucoma of both eyes H40.10X0 [facility] [address] [address] 4787 Sep, [facility] [facility] [address], [place] [address] 9671 Sep, Post-traumatic stress disorder, unspecified F43.10 ; Major depressive disorder, recurrent, moderate F33.1 and Problems related to release from snf Z65.2 [place] [address], [place] [address] 3219 Sep, Chronic pain G89.29 [facility] [id number] [place] [address] 06886- 4297 Sep, Pain in left shoulder M25.512 ; Pain in right shoulder M25.511 and Other chronic pain G89.29 [place] [id number] [address] [address]27 Sep, [facility] [address], [place] [address] 2621 Sep, [facility] [address] 5[address] Sep, [facility] [id number] [id number] Aug, Dental examination Z01.20 [facility] [id number] [place] [address] 22376- 0114 Aug, Post-traumatic stress disorder, unspecified F43.10 ; Open- angle glaucoma of both eyes H40.10X0 and Problems related to release from snf Z65.2 [facility] [id number] [place] [address] 64555- 9712 Aug, [facility] [id number] [place] [address] 04106- 3917 Aug, Sleep apnea, obstructive G47.33 ; Obesity E66.9 ; Hyperlipidemia E78.5 ; Bilateral headaches R51 ; HTN (hypertension) I10 ; Post- traumatic stress disorder, unspecified F43.10 ; Anxiety F41.9 ; Neuropathy G62.9 ; Glaucoma H40.9 and Chronic pain G89.29 [facility] [id number] [id number] Aug, Encounter for dental examination Z01.20 [facility] [id number] [place] [address] 41550- 3438 Aug, Post-traumatic stress disorder, unspecified F43.10 ; Major depressive disorder, recurrent, moderate F33.1 and Problems related to release from snf Z65.2 [facility] [address], [place] [address]- 3796 Aug, [facility] [address], [place] [address]- 7844 Jul, [facility] [id number] [address] 2391 Jul, Post-traumatic stress disorder, unspecified F43.10 and Major depressive disorder, recurrent, moderate F33.1 [facility] [address], [place] [address]- 7906 Jul, [facility] [address], [place] [address]- 8144 Jul, [facility] [id number] [place] [address] 97913- 9212 Jul, Chronic pain G89.29 [facility] [id number] [place] [address] 89239- 0207 June, Post-traumatic stress disorder, unspecified F43.10 and Major depressive disorder, recurrent, moderate F33.1 [facility] [address], [place] [address]- 3941 June, [facility] [id number] [place] [address] 00895- 1793 June, Chronic pain G89.29 [facility] [id number] [place] [address] 81189- 0946 June, Post-traumatic stress disorder, unspecified F43.10 and Major depressive disorder, recurrent, moderate F33.1 [facility] [address], [place] [address]- 4934 May, Post-traumatic stress disorder, unspecified F43.10 and Major depressive disorder, recurrent, moderate F33.1 [facility] [address], [place] [address]- 7730 May, [facility] [id number] [place] [address] 07480- 7363 May, [facility] [address], [place] [address]- 0610 May, [facility] [id number] [place] [address] 23926- 1152 Apr, [facility] [id number] [place] [address] 28168- 8357 Apr, Post-traumatic stress disorder, unspecified F43.10 and Sleep apnea, obstructive G47.33 [facility] [id number] [place] [address] 52578- 7593 Apr, [facility] [id number] [place] [address] 56529- 7841 Apr, Shoulder pain, left M25.512 [facility] [id number] [place] [address] 60998- 4168 Apr, Post-traumatic stress disorder, unspecified F43.10 and Major depressive disorder, recurrent, moderate F33.1 [facility] [id number] [place] [address] 74683- 5359 17 Apr, 2015 [facility] [id number] [place] [address] 09385- 5529 Apr, [facility] [id number] [place] [address] 12209- 9186 08 Apr, 2015 [facility] [id number] [place] [address] 15721- 7051 Apr, Left shoulder pain M25.512 [facility] [id number] [place] [address] 35305- 4912 Mar, [facility] [id number] [place] [address] 39812- 3681 Mar, [facility] [id number] [place] [address] 11622- 2789 Mar, [facility] [id number] [place] [address] 26069- 1742 12 Mar, 2015 Sleep apnea, obstructive G47.33 ; Obesity E66.9 ; Chronic pain G89.29 ; Hyperlipidemia E78.5 ; HTN (hypertension) I10 ; Blindness and low vision H54.10 ; Major depressive disorder, recurrent, moderate F33.1 and Anxiety F41.9 [facility] [id number] [place] [address] 16354- 1589 Mar, [facility] [id number] [place] [address] 07730- 7772 Mar, Post-traumatic stress disorder, unspecified F43.10 and Major depressive disorder, recurrent, moderate F33.1 [facility] [id number] [place] [address] 46868- 7985 Mar, [place] [id number] [place] [address] 22359- 1446 04 Mar, 2015 HTN (hypertension) I10 ; Blindness and low vision H54.10 ; Obesity E66.9 ; Hyperlipidemia E78.5 ; Glaucoma H40.9 ; Chronic pain G89.29 and CAD (coronary artery disease) I25.10 [place] [id number] [place] [address] 12066- 9469 Feb, [facility] [id number] [place] [address] 38368- 9138 Feb, Post-traumatic stress disorder, unspecified F43.10 ; Obesity E66.9 ; Sleep apnea, obstructive G47.33 and Open-angle glaucoma of both eyes H40.10X0 [place] [id number] [place] [address] 15660- 3732 Feb, Post-traumatic stress disorder, unspecified F43.10 and Major depressive disorder, recurrent, moderate F33.1 [place] [facility] [id number] [place] [address] 80419- 6758 Feb, [address] 07166- 8531 Feb, [facility] [id number] [place] [address] 35195- 8366 Feb, HTN (hypertension) I10 ; Post-traumatic stress disorder, unspecified F43.10 ; Blindness and low vision H54.10 ; Obesity E66.9 ; Hyperlipidemia E78.5 ; Chronic pain G89.29 ; Glaucoma H40.9 ; Mitral valve prolapse I34.1 and Bilateral headaches R51 [facility] [id number] [place] [address] 76247- 2591 Feb, [facility] [facility] [address] 79617- 5637 Feb, Post-traumatic stress disorder, unspecified F43.10 and Major depressive disorder, recurrent, moderate F33.1 [place] [address] 56109- 2449 Feb, [place] [facility] [address] 04329- 0462 Feb, [place] [facility] [address] 55031- 4055 Jan, [place] [address] 02759- 0224 Jan, [place] [address] 22223- 0320 Jan, Obesity E66.9 ; HTN (hypertension) I10 ; Blindness and low vision H54.10 ; Major depressive disorder, recurrent, moderate F33.1 ; Glaucoma H40.9 ; Hyperlipidemia E78.5 ; Sleep apnea, obstructive G47.33 ; Chronic pain G89.29 ; Anxiety F41.9 ; Chronic tension headaches G44.229 and Cough R05 [facility] [id number] [place] [address] 93258- 0756 Jan, [address] 47483- 8844 Jan, [place] [id number] [place] [address] 47448- 9376 Jan, Post-traumatic stress disorder, unspecified F43.10 ; Obesity E66.9 ; Sleep apnea, obstructive G47.33 and Open-angle glaucoma of both eyes H40.10X0 [place] [id number] [place] [address]- 4364 Jan, [address] 9830 Jan, Post-traumatic stress disorder, unspecified F43.10 and Major depressive disorder, recurrent, moderate F33.1 [place] [address]0147- 7168 Dec, [place] [address] [place] [address] 447289- 9100 Dec, Sleep apnea, obstructive G47.33 ; Obesity E66.9 ; Hyperlipidemia E78.5 ; Glaucoma H40.9 ; Chronic pain G89.29 ; HTN (hypertension ) I10 ; Blindness and low vision H54.10 ; Anxiety F41.9 and CAD (coronary artery disease) I25.10 [place] [address] 40604- 0099 Nov, [address] 023941- 2184 Nov, [place] [address] 97781- 4319 Nov, [address] 79832- 6930 Nov, [place] [address] [place] [id number]- 8468 Nov, [address] 64607- 4757 Nov, Encounter for immunization Z23 ; Sleep apnea, obstructive G47.33 ; Obesity E66.9 ; Hyperlipidemia E78.5 ; Glaucoma H40.9 ; Chronic pain G89.29 ; Anxiety F41.9 ; Chronic tension headaches G44.229 and HTN (hypertension ) I10 [address] [place] [address]- 6391 19 Nov, 2014 [facility] [id number] [place] [address] 96827- 5590 14 Nov, 2014 [facility] [id number] [place] [address] 47194- 4771 06 Nov, 2014 Dizziness R42 [facility] [id number] [place] [address] 74208- 8267 Nov, [facility] [id number] [place] [address] 64932- 2316 29 Oct, 2014 [facility] [id number] [place] [address] 30677- 7412 28 Oct, 2014 [facility] [id number] [place] [address] 96620- 8017 Oct, [facility] [id number] [place] [address] 19898- 1601 Oct, [facility] [id number] [place] [address] 11398- 7318 17 Oct, 2014 Dizziness 780.4 ; Essential hypertension 401.9 ; Obesity 278.00 ; Hyperlipidemia 272.4 ; Chronic pain 338.29 ; Glaucoma 365.9 and Anxiety 300.00 [facility] [id number] [place] [address] 18921- 2670 Oct, Essential hypertension 401.9 ; Hyperlipidemia 272.4 ; Glaucoma 365.9 ; Obesity 278.00 ; Chronic pain 338.29 and Allergy to insects V15.06 [facility] [id number] [place] [address] 71680- 8645 Sep, [facility] [id number] [place] [address] 00402- 7126 Sep, [facility] [id number] [place] [address] 66832- 3205 Sep, [facility] [id number] [place] [address] 03097- 1463 Sep, [facility] [address] [facility] [id number] [place] [address]- 4379 Aug, Essential hypertension 401.9 ; Obesity 278.00 [...] Body Site LAB NOT BILLED BY [facility] July 21, 2017 VENIPUNCT, ROUTINE* July 21, 2017 INSTRUCTIONS MEDICATIONS ADMINISTERED No Known Medications [...]
--- OUTSIDE RECORDS SUMMARY | 2018-02-04 14:39 | XMS REPORT ---
Author Author ALENA ÁLVAREZ [facility] Address [address] [place] [address] Care Team Providers Care Retirement Actuary Name Role Phone ALENA ÁLVAREZ Unavailable PROBLEMS Type Condition ICD9-CM Code [id number] Code Onset Dates Condition Status SNOMED Code Problem Hyperlipidemia E78.5 Active 52635786 Problem Arrhythmia as indication for cardiac pacemaker replacement I49.9 Active 20386255 Problem Sleep apnea, obstructive G47.33 Active 77346325 Problem Primary insomnia F51.01 Active 2206510 Problem Chronic pain G89.29 Active 48492265 Problem Morbid (severe) obesity due to excess calories E66.01 Active 916949726 Problem Body mass index (BMI) of 40.0-44.9 in adult Z68.41 Active 823844011 Problem Other male erectile dysfunction N52.8 Active 865867264 Problem Supraventricular tachycardia I47.1 Active 6836217 Problem Sarcoidosis D86.9 Active 47298771 Problem HTN (hypertension) I10 Active 29919997 Problem Blindness and low vision H54.10 Active 763887065 Problem Myocarditis, unspecified chronicity, 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 Active 67832839 Problem Migraine without aura and without status migrainosus, not intractable G43.009 Active 532855754 Problem 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 Active 339244181 Problem Problems related to release from penitentiary Z65.2 Active [id number] Problem Chronic pain syndrome G89.4 Active 901236901 Problem Major depressive disorder, recurrent, moderate F33.1 Active 31044702 Problem Open-angle glaucoma of both eyes H40.10X0 Active 37308728 Problem Chronic tension headaches G44.229 Active 029217501 Problem Anxiety F41.9 Active 31455975 Problem Post-traumatic stress disorder, chronic F43.12 Active 880176565 Problem Environmental allergies Z91.09 Active 162219990 Problem Mitral valve prolapse I34.1 Active 677038873 Problem CAD (coronary artery disease) I25.10 Active 97181994 ALLERGIES No Information ENCOUNTERS Encounter Location Date Diagnosis [facility] [place] [id number] [place] [address] 09276- 7180 Oct, [facility] [place] [id number] [place] [address] 87872- 0452 Oct, [facility] [place] [id number] [place] [address] 34802- 9366 Oct, [facility] [place] [address] 73321- 2840 Sep, Arrhythmia as indication for cardiac pacemaker replacement I49.9 [facility] [place] [address] 35342- 3432 Sep, [facility] [place] [id number] [place] [address] 75140- 9317 Sep, HTN (hypertension) I10 [facility] [place] [id number] [place] [address] 55930- 8445 Sep, [facility] [place] [id number] [place] [address] 29832- 6308 16 Sep, 2017 Body mass index (BMI) of 40.0-44.9 in adult Z68.41 ; Chronic pain G89.29 and Supraventricular tachycardia I47.1 [facility] [place] [id number] [place] [address] 06208- 3118 Sep, [facility] [place] [id number] [place] [address] 85990- 1226 Sep, Sarcoidosis D86.9 [facility] [place] [id number] [place] [address] 69749- 7223 Sep, Sarcoidosis D86.9 [facility] [place] [id number] [place] [address] 94706- 5042 Sep, [facility] [place] [id number] [place] [address] 31023- 8560 Sep, [facility] [place] [address] [address]- 7472 Sep, [facility] [place] [id number] [place] [address] 54845- 5917 Sep, [facility] [place] [address] [place] [address] 61675- 2189 Sep, Left leg pain M79.605 [facility] [place] [id number] [place] [address] 02573- 0208 Sep, HTN (hypertension) I10 [facility] [place] [address] [place] [address] 87518- 6930 Sep, [facility] [place] [address] [place] [address] 43476- 3348 Sep, Post-traumatic stress disorder, unspecified F43.10 ; Major depressive disorder, recurrent, moderate F33.1 and Problems related to release from penitentiary Z65.2 [facility] [place] [address] [address]- 0455 Sep, [facility] [place] [id number] [place] [address] 27126- 2436 Aug, [facility] [place] [id number] [place] [address] 40263- 4451 Aug, Sarcoidosis D86.9 [facility] [place] [address] [address]- 7325 Aug, Sarcoidosis D86.9 [facility] [place] [address] [address]- 0815 Aug, HTN (hypertension) I10 [facility] [place] [address] [address]- 5497 Aug, Post-traumatic stress disorder, unspecified F43.10 ; Major depressive disorder, recurrent, moderate F33.1 and Problems related to release from penitentiary Z65.2 [facility] [place] [id number] [place] [address] 31927- 3080 Aug, [facility] [place] [id number] [place] [address] 40702- 4618 Aug, Left leg pain M79.605 [facility] [place] [address] 03647- 6154 Jul, Post-traumatic stress disorder, chronic F43.12 ; Anxiety F41.9 ; Problems related to release from penitentiary Z65.2 and BMI 40.0-44.9, adult Z68.41 [facility] [place] [address] 03425- 4121 20 Jul, 2017 HTN (hypertension) I10 ; Body mass index (BMI) of 40.0-44.9 in adult Z68.41 and Acute swimmer''s ear of both sides H60.333 [place] [address] 19310- 6326 19 Jul, 2017 Glaucoma H40.9 [facility] [place] [address] 87485- 2486 14 Jul, 2017 [facility] [place] [address] 39706- 5403 13 Jul, 2017 Sarcoidosis D86.9 [facility] [place] [address] 11228- 9184 Jul, Left leg pain M79.605 [place] [address] 21146- 7720 Jul, Sarcoidosis D86.9 [facility] [place] [address] 85546- 7203 Jul, Post-traumatic stress disorder, unspecified F43.10 ; Major depressive disorder, recurrent, moderate F33.1 and Problems related to release from penitentiary Z65.2 [facility] [place] [address] 22891- 4474 June, [facility] [address] 71578 -9571 June, Sore throat J02.9 and BMI 40.0-44.9, adult Z68.41 [facility] [place] [id number] [place] [address] 45472- 8057 June, [facility] [place] [id number] [place] [address] 43557- 4735 June, [facility] [place] [id number] [place] [address] 19938- 3527 June, [facility] [place] [id number] [place] [address] 70611- 1503 June, Left leg pain M79.605 [facility] [place] [id number] [place] [address] 75876- 0654 June, Sarcoidosis D86.9 [facility] [place] [id number] [place] [address] 74174- 5978 June, [facility] [place] [id number] [place] [address] 35216- 8615 June, [facility] [place] [id number] [place] [address] 62052- 5488 June, Left leg pain M79.605 [facility] [place] [id number] [place] [address] 56533- 1758 May, [facility] [place] [id number] [place] [address] 29599- 9905 May, [facility] [place] [id number] [place] [address] 40357- 3022 May, [facility] [place] [id number] [place] [address] 77862- 7349 May, Left leg pain M79.605 [facility] [place] [address] [place] [address] 33641- 4246 May, Post-traumatic stress disorder, unspecified F43.10 ; Major depressive disorder, recurrent, moderate F33.1 and Problems related to release from penitentiary Z65.2 [facility] [place] [id number] [place] [address] 08640- 9839 May, Chronic pain G89.29 ; Anxiety F41.9 ; Chest pain, unspecified type R07.9 and BMI 40.0-44.9, adult Z68.41 [place] [address] 20797- 3333 30 Apr, 2017 [place] [id number] [place] [address] 33849- 7552 29 Apr, 2017 Left leg pain M79.605 [place] [address] 42383- 9619 27 Apr, 2017 Post-traumatic stress disorder, unspecified F43.10 ; Problems related to release from penitentiary Z65.2 ; Anxiety F41.9 and BMI 40.0-44.9 , adult Z68.41 [place] [id number] [place] [address] 04245- 7176 Apr, [facility] [place] [id number] [place] [address] 51355- 9423 Apr, Left leg pain M79.605 [place] [id number] [place] [address] 67364- 3238 13 Apr, 2017 Post-traumatic stress disorder, unspecified F43.10 ; Major depressive disorder, recurrent, moderate F33.1 and Problems related to release from penitentiary Z65.2 [place] [id number] [place] [address] 82741- 9210 Apr, [place] [id number] [place] [address] 42800- 2941 Apr, Chronic pain G89.29 ; 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 ; Morbid (severe) obesity due to excess calories E66.01 ; Anxiety F41.9 and BMI 40.0-44.9, adult Z68.41 [facility] [id number] [place] [address] 71490 -5099 Apr, Sore throat J02.9 and BMI 40.0-44.9, adult Z68.41 [place] [address] 01548- 2411 Apr, Left leg pain M79.605 [facility] [address] [place] [address] [id number] Mar, Dental examination Z01.20 [facility] [place] [address] 31736- 2582 Mar, [facility] [address] 32703 -7459 Mar, Cough R05 ; Viral gastroenteritis A08.4 and BMI 40.0-44.9, adult Z68.41 [place] [address] 01913- 8143 Mar, Left leg pain M79.605 [place] [id number] [place] [address] 89934- 4822 06 Mar, 2017 Post-traumatic stress disorder, unspecified F43.10 ; Major depressive disorder, recurrent, moderate F33.1 and Problems related to release from penitentiary Z65.2 [place] [id number] [place] [address] 50497- 3652 Feb, Left leg pain M79.605 [facility] [place] [id number] [place] [address] 35374- 5729 Feb, [place] [address] 73230- 3902 Feb, BMI 40.0-44.9, adult Z68.41 ; Chronic pain syndrome G89.4 ; Migraine without aura and without status migrainosus, not intractable G43.009 ; Mitral valve prolapse I34.1 and 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 [facility] [place] [id number] [place] [address] 20177- 1414 Feb, Post-traumatic stress disorder, chronic F43.12 ; Anxiety F41.9 ; Problems related to release from penitentiary Z65.2 and BMI 40.0-44.9, adult Z68.41 [facility] [place] [id number] [place] [address] 15492- 8100 Feb, Post-traumatic stress disorder, unspecified F43.10 ; Major depressive disorder, recurrent, moderate F33.1 and Problems related to release from penitentiary Z65.2 [facility] [place] [id number] [place] [address] 04782- 1259 Feb, Left leg pain M79.605 [place] [id number] [place] [address] 70848- 2659 Jan, Post-traumatic stress disorder, unspecified F43.10 ; Major depressive disorder, recurrent, moderate F33.1 and Problems related to release from penitentiary Z65.2 [place] [id number] [place] [address] 55724- 2889 Jan, [place] [id number] [place] [address] 96204- 4544 Jan, [place] [id number] [place] [address] 52864- 2591 Jan, Anxiety F41.9 [place] [id number] [place] [address] 55320- 3162 Jan, Left leg pain M79.605 [facility] [place] [id number] [place] [address] 74153- 4718 Dec, Left leg pain M79.605 [place] [id number] [place] [address] 63789- 2436 Dec, [place] [id number] [place] [address] 10297- 9116 Dec, Post-traumatic stress disorder, unspecified F43.10 ; Major depressive disorder, recurrent, moderate F33.1 and Problems related to release from penitentiary Z65.2 [facility] [place] [id number] [place] [address] 27175- 1077 31 Nov, 2016 Chronic pain G89.29 and Anxiety F41.9 [place] [id number] [place] [address]- 4815 24 Nov, 2016 Chronic pain G89.29 and Anxiety F41.9 [place] [address] 56735- 9116 16 Nov, 2016 Post-traumatic stress disorder, unspecified F43.10 ; Major depressive disorder, recurrent, moderate F33.1 and Problems related to release from penitentiary Z65.2 [place] [address] 10093- 8818 09 Nov, 2016 Other abnormal findings in specimens from other organs, systems and tissues R89.8 ; Other male erectile dysfunction N52.8 ; Body mass index (BMI) of 40.0-44.9 in adult Z68.41 and Morbid (severe) obesity due to excess calories E66.01 [place] [id number] [place] [address] 24733- 7730 02 Nov, 2016 Post-traumatic stress disorder, unspecified F43.10 ; Major depressive disorder, recurrent, moderate F33.1 and Problems related to release from penitentiary Z65.2 [facility] [id number] [place] [address] [id number] Oct, Dental examination Z01.20 [place] [id number] [place] [address] 30034- 4375 Oct, [place] [id number] [place] [address] 76554- 7411 Oct, Encounter for immunization Z23 [place] [address] 71621- 4972 26 Oct, 2016 Chronic pain G89.29 ; Anxiety F41.9 ; Arrhythmia as indication for cardiac pacemaker replacement I49.9 and Glaucoma H40.[address] 77109- 7415 Oct, Anxiety F41.9 ; Post-traumatic stress disorder, chronic F43.12 and Problems related to release from penitentiary Z65.2 [place] [id number] [place] [address]- 6503 07 Oct, 2016 Post-traumatic stress disorder, unspecified F43.10 ; Major depressive disorder, recurrent, moderate F33.1 and Problems related to release from penitentiary Z65.2 [place] [id number] [place] [address] 26288- 6074 Sep, Chronic pain G89.29 and Anxiety F41.9 [place] [id number] [place] [address] 78005- 8591 Sep, Post-traumatic stress disorder, unspecified F43.10 ; Major depressive disorder, recurrent, moderate F33.1 and Problems related to release from penitentiary Z65.2 [place] [id number] [place] [address] 30985- 6028 Sep, Post-traumatic stress disorder, unspecified F43.10 ; Major depressive disorder, recurrent, moderate F33.1 and Problems related to release from penitentiary Z65.2 [place] [id number] [place] [address] 19591- 3998 Sep, Chronic pain G89.29 [place] [id number] [place] [address] 74838- 2035 Aug, Dental caries, unspecified K02.9 [place] [id number] [place] [address] 48806- 4228 Aug, Sleep apnea, obstructive G47.33 ; Obesity E66.9 ; Chronic pain G89.29 ; HTN (hypertension) I10 ; Major depressive disorder, recurrent, moderate F33.1 ; Anxiety F41.9 ; Chronic tension headaches G44.229 ; Mitral valve prolapse I34.1 ; Arrhythmia as indication for cardiac pacemaker replacement I49.9 ; Dental caries, unspecified K02.9 ; Primary insomnia F51.01 and Hyperlipidemia E78.5 [place] [address] [address]- 2569 Aug, Post-traumatic stress disorder, unspecified F43.10 ; Major depressive disorder, recurrent, moderate F33.1 and Problems related to release from penitentiary Z65.2 [facility] [place] [address] [address]- 3158 Aug, Dental examination Z01.20 [facility] [address] [place] [address] [id number] Aug, Dental examination Z01.20 [facility] [place] [id number] [place] [address] 86577- 3264 06 Aug, 2016 Post-traumatic stress disorder, unspecified F43.10 ; Major depressive disorder, recurrent, moderate F33.1 and Problems related to release from penitentiary Z65.2 [facility] [place] [id number] [place] [address] 95204- 0920 Aug, Chronic pain G89.29 and Primary insomnia F51.01 [facility] [place] [id number] [place] [address] 91083- 9630 Jul, [facility] [place] [id number] [place] [address] 38864- 8140 Jul, [facility] [place] [id number] [place] [address] 70558- 1240 Jul, Nausea R11.0 [facility] [place] [id number] [place] [address] 27451- 7269 Jul, Arrhythmia as indication for cardiac pacemaker replacement I49.9 [facility] [place] [id number] [place] [address] 65156- 3910 Jul, Post-traumatic stress disorder, unspecified F43.10 ; Major depressive disorder, recurrent, moderate F33.1 and Problems related to release from penitentiary Z65.2 [facility] [place] [address] [place] [address] 50722- 3455 Jul, Anxiety F41.9 [place] [id number] [place] [address] 25861- 6958 08 Jul, 2016 Chronic pain G89.29 [place] [id number] [place] [address] 28572- 4092 Jul, Sleep apnea, obstructive G47.33 ; Hyperlipidemia E78.5 ; Chronic pain G89.29 ; Blindness and low vision H54.10 ; Major depressive disorder, recurrent, moderate F33.1 ; Anxiety F41.9 ; Mitral valve prolapse I34.1 ; Arrhythmia as indication for cardiac pacemaker replacement I49.9 ; Primary insomnia F51.01 ; Bilateral headaches R51 and Environmental allergies Z91.[address] 36257- 4649 Jul, Post-traumatic stress disorder, unspecified F43.10 ; Major depressive disorder, recurrent, moderate F33.1 and Problems related to release from penitentiary Z65.[address] 36245- 3290 June, Post-traumatic stress disorder, chronic F43.12 ; Anxiety F41.9 ; Problems related to release from penitentiary Z65.2 ; Sleep apnea, obstructive G47.33 and Primary insomnia F51.01 [place] [id number] [place] [address] 61392- 4115 June, [place] [id number] [place] [address] 01579- 6302 June, [place] [address] 41299- 4267 June, [place] [id number] [place] [address] [phone]- 4460 June, Chronic pain G89.29 [place] [address] [id number] [place] [address] 08023- 6972 June, Chronic pain G89.29 [place] [address] [address] [id number] [place] [address] 62693- 7760 June, Lipoma of left lower extremity D17.24 ; Open wound T14.8 and Swelling of left lower extremity M79.89 [place] [address] [address] [id number] [place] [address] [phone]- 3246 June, Post-traumatic stress disorder, unspecified F43.10 ; Major depressive disorder, recurrent, moderate F33.1 and Problems related to release from penitentiary Z65.2 [place] [address] [address]- [address] May, Lipoma of left lower extremity D17.24 ; Major depressive disorder, recurrent, moderate F33.1 ; Sleep apnea, obstructive G47.33 ; Hyperlipidemia E78.5 ; Obesity E66.9 ; HTN (hypertension) I10 ; Glaucoma H40.9 ; CAD (coronary artery disease) I25.10 ; Chronic tension headaches G44.229 ; Chronic pain G89.29 ; Anxiety F41.9 ; Nausea R11.0 and Primary insomnia F51.01 [place] [address] [address]- [address]1 May, [place] [address] 01327- 1407 May, Chronic pain G89.29 [place] [address] 58961- 4476 May, [place] [address] [id number] [place] [address] [phone]- 7898 Apr, Post-traumatic stress disorder, unspecified F43.10 ; Major depressive disorder, recurrent, moderate F33.1 and Problems related to release from penitentiary Z65.2 [place] [address] [id number] [place] [address] 82474- 8288 Apr, Primary insomnia F51.01 ; Post-traumatic stress disorder, chronic F43.12 and Problems related to release from penitentiary Z65.2 [place] [address] [id number] [place] [address] [phone]- [phone] Apr, Post-traumatic stress disorder, unspecified F43.10 ; Major depressive disorder, recurrent, moderate F33.1 and Problems related to release from penitentiary Z65.2 [place] [id number] [place] [address] 13002- 5983 16 Apr, 2016 [place] [id number] [place] [address] 92618- 9685 16 Apr, 2016 Sleep apnea, obstructive G47.33 ; Chronic pain G89.29 ; HTN (hypertension) I10 ; Mitral valve prolapse I34.1 ; Shoulder pain, left M25.512 ; Arrhythmia as indication for cardiac pacemaker replacement I49.9 ; Glaucoma H40.9 ; Bilateral headaches R51 ; Environmental allergies Z91.09 ; Primary insomnia F51.01 and Nausea R11.0 [place] [id number] [place] [address] 45670- 3270 Apr, [place] [id number] [place] [address] 55416- 4631 Apr, [place] [id number] [place] [address] 08176- 4943 Apr, Post-traumatic stress disorder, unspecified F43.10 ; Major depressive disorder, recurrent, moderate F33.1 and Problems related to release from penitentiary Z65.2 [place] [id number] [place] [address] 48983- 6928 Apr, HTN (hypertension) I10 [place] [id number] [place] [address] 71596- 1328 Apr, HTN (hypertension) I10 [place] [id number] [place] [address] 67661- 1903 14 Mar, 2016 Chronic pain G89.29 ; Primary insomnia F51.01 and Problems related to release from penitentiary Z65.2 [place] [id number] [place] [address] 62487- 0451 07 Mar, 2016 Post-traumatic stress disorder, unspecified F43.10 ; Major depressive disorder, recurrent, moderate F33.1 and Problems related to release from penitentiary Z65.2 [place] [id number] [place] [address] 30829- 0303 Feb, Post-traumatic stress disorder, unspecified F43.10 ; Major depressive disorder, recurrent, moderate F33.1 and Problems related to release from penitentiary Z65.2 [place] [id number] [place] [address] 30048- 8326 Feb, Chronic tension headaches G44.229 [place] [id number] [place] [address] 26200- 9882 Feb, Sleep apnea, obstructive G47.33 ; Obesity [...] pacemaker replacement I49.9 and Primary insomnia F51.01 [place] [id number] [place] [address] 27818- 3938 Feb, Post-traumatic stress disorder, unspecified F43.10 and Chronic pain G89.[id number] [place] [address] 27529- 4149 Feb, [facility] [id number] [place] [address] [id number] Feb, Dental caries K02.[address] [place] [address] 41945- 0479 Feb, [address] 51760- 1064 Feb, Post-traumatic stress disorder, unspecified F43.10 ; Major depressive disorder, recurrent, moderate F33.1 and Problems related to release from penitentiary Z65.2 [place] [id number] [place] [address] 28579- 8282 Jan, Sleep apnea, obstructive G47.33 and Chronic pain G89.29 [place] [address] [address]- 7132 Jan, [place] [id number] [place] [address] 28089- 3015 14 Jan, 2016 Dental examination Z01.20 [place] [id number] [place] [address] 26524- 2456 Jan, [place] [id number] [place] [address] 42722- 4798 Jan, [place] [id number] [place] [address] 74473- 6809 Dec, Post-traumatic stress disorder, unspecified F43.10 ; Major depressive disorder, recurrent, moderate F33.1 and Problems related to release from penitentiary Z65.2 [place] [id number] [place] [address] 72983- 2034 Dec, Encounter for immunization Z23 ; Problems related to release from penitentiary Z65.2 ; Sleep apnea, obstructive G47.33 and Post-traumatic stress disorder, chronic F43.12 [place] [id number] [place] [address] 69091- 8649 18 Dec, 2015 Sleep apnea, obstructive G47.33 ; Hyperlipidemia E78.5 ; Chronic pain G89.29 ; Glaucoma H40.9 ; HTN (hypertension) I10 ; Post-traumatic stress disorder, unspecified F43.10 ; Anxiety F41.9 ; Chronic tension headaches G44.229 ; Mitral valve prolapse I34.1 and CAD (coronary artery disease) I25.10 [place] [address] [place] [address] 98592- 1985 15 Dec, 2015 Post-traumatic stress disorder, unspecified F43.10 ; Major depressive disorder, recurrent, moderate F33.1 and Problems related to release from penitentiary Z65.2 [place] [id number] [place] [address] 60390- 4320 Nov, Chronic pain G89.29 [place] [address] [address]- 7015 Nov, Post-traumatic stress disorder, unspecified F43.10 ; Major depressive disorder, recurrent, moderate F33.1 and Problems related to release from penitentiary Z65.2 [place] [address] [address]- 5866 Oct, [place] [id number] [place] [address] 69788- 7714 Oct, [place] [id number] [place] [address] 42185- 3793 Oct, Post-traumatic stress disorder, unspecified F43.10 ; Major depressive disorder, recurrent, moderate F33.1 and Problems related to release from penitentiary Z65.2 [place] [id number] [place] [address] 81536- 6538 08 Oct, 2015 [place] [id number] [place] [address] 08264- 1426 07 Oct, 2015 Environmental allergies Z91.09 ; Cough R05 and Open-angle glaucoma of both eyes H40.10X0 [place] [address] [address]- 8050 Sep, [place] [address] [address]- 0062 Sep, Post-traumatic stress disorder, unspecified F43.10 ; Major depressive disorder, recurrent, moderate F33.1 and Problems related to release from penitentiary Z65.2 [place] [address] [address]- 7783 Sep, Chronic pain G89.29 [place] [id number] [place] [address] 86504- 1447 Sep, Pain in left shoulder M25.512 ; Pain in right shoulder M25.511 and Other chronic pain G89.29 [place] [id number] [address] 2145 Sep, [facility] [place] [address] [address]- 4106 Sep, [facility] [place] [address] 4196 Sep, [facility] [address] [id number] Aug, Dental examination Z01.20 [facility] [place] [id number] [place] [address] 18917- 7956 Aug, Post-traumatic stress disorder, unspecified F43.10 ; Open- angle glaucoma of both eyes H40.10X0 and Problems related to release from penitentiary Z65.2 [facility] [place] [id number] [place] [address] 50629- 6322 Aug, [facility] [place] [id number] [place] [address] 68341- 0884 Aug, Sleep apnea, obstructive G47.33 ; Obesity E66.9 ; Hyperlipidemia E78.5 ; Bilateral headaches R51 ; HTN (hypertension) I10 ; Post- traumatic stress disorder, unspecified F43.10 ; Anxiety F41.9 ; Neuropathy G62.9 ; Glaucoma H40.9 and Chronic pain G89.29 [facility] [address] [id number] [id number] Aug, Encounter for dental examination Z01.20 [facility] [place] [address] [place] [address] 19419- 5608 Aug, Post-traumatic stress disorder, unspecified F43.10 ; Major depressive disorder, recurrent, moderate F33.1 and Problems related to release from penitentiary Z65.2 [facility] [place] [address] [address]- 8555 Aug, [facility] [place] [address] [address]- 8018 Jul, [facility] [place] [id number] [address]- 6132 Jul, Post-traumatic stress disorder, unspecified F43.10 and Major depressive disorder, recurrent, moderate F33.1 [facility] [place] [address] [address]- 7563 Jul, [facility] [place] [address] [address]- 8985 Jul, [facility] [place] [id number] [place] [address] 49747- 7503 Jul, Chronic pain G89.29 [facility] [place] [id number] [place] [address] 90735- 0230 June, Post-traumatic stress disorder, unspecified F43.10 and Major depressive disorder, recurrent, moderate F33.1 [facility] [place] [address] [address]- 3364 June, [facility] [place] [id number] [place] [address] 86939- 9995 June, Chronic pain G89.29 [facility] [place] [id number] [place] [address] 30789- 3826 June, Post-traumatic stress disorder, unspecified F43.10 and Major depressive disorder, recurrent, moderate F33.1 [facility] [place] [address] [address]- 3814 May, Post-traumatic stress disorder, unspecified F43.10 and Major depressive disorder, recurrent, moderate F33.1 [facility] [place] [address] [address]- 2004 May, [facility] [place] [id number] [place] [address] 47221- 1729 May, [facility] [place] [address] [address]- 5164 May, [facility] [place] [id number] [place] [address] 84286- 8399 Apr, [facility] [place] [id number] [place] [address] 69253- 3044 Apr, Post-traumatic stress disorder, unspecified F43.10 and Sleep apnea, obstructive G47.33 [facility] [place] [id number] [place] [address] 20576- 6920 Apr, [facility] [place] [id number] [place] [address] 52457- 2680 Apr, Shoulder pain, left M25.512 [facility] [place] [id number] [place] [address] 70895- 9360 Apr, Post-traumatic stress disorder, unspecified F43.10 and Major depressive disorder, recurrent, moderate F33.1 [place] [id number] [place] [address] 93124- 6933 17 Apr, 2015 [facility] [place] [id number] [place] [address] 88377- 7122 Apr, [facility] [place] [id number] [place] [address] 35078- 6397 08 Apr, 2015 [facility] [place] [id number] [place] [address] 96097- 7228 Apr, Left shoulder pain M25.512 [facility] [place] [id number] [place] [address] 89987- 0296 Mar, [facility] [place] [id number] [place] [address] 12636- 3002 Mar, [facility] [place] [id number] [place] [address] 37715- 1783 Mar, [facility] [place] [id number] [place] [address] 80868- 6782 12 Mar, 2015 Sleep apnea, obstructive G47.33 ; Obesity E66.9 ; Chronic pain G89.29 ; Hyperlipidemia E78.5 ; HTN (hypertension) I10 ; Blindness and low vision H54.10 ; Major depressive disorder, recurrent, moderate F33.1 and Anxiety F41.9 [place] [id number] [place] [address] 09361- 7871 Mar, [place] [id number] [place] [address] 62031- 2994 Mar, Post-traumatic stress disorder, unspecified F43.10 and Major depressive disorder, recurrent, moderate F33.1 [place] [id number] [place] [address] 41049- 2665 Mar, [place] [id number] [place] [address] 06562- 4330 04 Mar, 2015 HTN (hypertension) I10 ; Blindness and low vision H54.10 ; Obesity E66.9 ; Hyperlipidemia E78.5 ; Glaucoma H40.9 ; Chronic pain G89.29 and CAD (coronary artery disease) I25.10 [place] [id number] [place] [address] 82774- 1469 Feb, [place] [id number] [place] [address] 24399- 2231 Feb, Post-traumatic stress disorder, unspecified F43.10 ; Obesity E66.9 ; Sleep apnea, obstructive G47.33 and Open-angle glaucoma of both eyes H40.10X0 [place] [id number] [place] [address] 22945- 1334 Feb, Post-traumatic stress disorder, unspecified F43.10 and Major depressive disorder, recurrent, moderate F33.1 [place] [id number] [place] [address] 42348- 6908 Feb, [address] 53214- 3130 Feb, [place] [id number] [place] [address] 95549- 0398 Feb, HTN (hypertension) I10 ; Post-traumatic stress disorder, unspecified F43.10 ; Blindness and low vision H54.10 ; Obesity E66.9 ; Hyperlipidemia E78.5 ; Chronic pain G89.29 ; Glaucoma H40.9 ; Mitral valve prolapse I34.1 and Bilateral headaches R51 [place] [id number] [place] [address] 26178- 8845 Feb, [place] [address] 11686- 2929 Feb, Post-traumatic stress disorder, unspecified F43.10 and Major depressive disorder, recurrent, moderate F33.1 [place] [address] 61984- 2000 Feb, [place] [address] 81437- 1486 Feb, [place] [address] 98464- 7938 Jan, [place] [address] 86449- 9587 Jan, [place] [address] 14706- 3175 Jan, Obesity E66.9 ; HTN (hypertension) I10 ; Blindness and low vision H54.10 ; Major depressive disorder, recurrent, moderate F33.1 ; Glaucoma H40.9 ; Hyperlipidemia E78.5 ; Sleep apnea, obstructive G47.33 ; Chronic pain G89.29 ; Anxiety F41.9 ; Chronic tension headaches G44.229 and Cough R05 [place] [id number] [place] [address] 28863- 2530 Jan, [address] 40862- 4858 Jan, [place] [id number] [place] [address] 59691- 2585 Jan, Post-traumatic stress disorder, unspecified F43.10 ; Obesity E66.9 ; Sleep apnea, obstructive G47.33 and Open-angle glaucoma of both eyes H40.10X0 [place] [id number] [place] [address]- 3286 Jan, [address] 6316 Jan, Post-traumatic stress disorder, unspecified F43.10 and Major depressive disorder, recurrent, moderate F33.1 [place] [address]1468- 7123 Dec, [place] [address] [place] 412431- 5551 Dec, Sleep apnea, obstructive G47.33 ; Obesity E66.9 ; Hyperlipidemia E78.5 ; Glaucoma H40.9 ; Chronic pain G89.29 ; HTN (hypertension ) I10 ; Blindness and low vision H54.10 ; Anxiety F41.9 and CAD (coronary artery disease) I25.10 [place] [address] 23889- 3599 Nov, [address] 275807- 3089 Nov, [place] [address] 14354- 1461 Nov, [address] 13102- 2621 Nov, [place] [address] [place] [address] [id number]- 3531 Nov, [address] 19895- 6236 Nov, Encounter for immunization Z23 ; Sleep apnea, obstructive G47.33 ; Obesity E66.9 ; Hyperlipidemia E78.5 ; Glaucoma H40.9 ; Chronic pain G89.29 ; Anxiety F41.9 ; Chronic tension headaches G44.229 and HTN (hypertension ) I10 [address] [place] [address]- 8426 19 Nov, 2014 [facility] [place] [id number] [place] [address] 43830- 1753 14 Nov, 2014 [facility] [place] [id number] [place] [address] 66021- 0776 06 Nov, 2014 Dizziness R42 [facility] [place] [id number] [place] [address] 54788- 4602 Nov, [facility] [place] [id number] [place] [address] 91047- 8786 29 Oct, 2014 [facility] [place] [id number] [place] [address] 16002- 2594 28 Oct, 2014 [facility] [place] [id number] [place] [address] 91826- 3291 Oct, [facility] [place] [id number] [place] [address] 67734- 2359 Oct, [facility] [place] [id number] [place] [address] 43729- 2012 17 Oct, 2014 Dizziness 780.4 ; Essential hypertension 401.9 ; Obesity 278.00 ; Hyperlipidemia 272.4 ; Chronic pain 338.29 ; Glaucoma 365.9 and Anxiety 300.00 [facility] [place] [id number] [place] [address] 60310- 4441 Oct, Essential hypertension 401.9 ; Hyperlipidemia 272.4 ; Glaucoma 365.9 ; Obesity 278.00 ; Chronic pain 338.29 and Allergy to insects V15.06 [facility] [place] [id number] [place] [address] 27673- 5913 Sep, [facility] [place] [id number] [place] [address] 92277- 2020 Sep, [facility] [place] [id number] [place] [address] 38347- 3849 Sep, [facility] [place] [id number] [place] [address] 38132- 9775 Sep, [facility] [place] [address] [facility] [id number] [place] [address]- 2752 Aug, Essential hypertension 401.9 ; Obesity 278.00 ; Hyperlipidemia 272.4 ; Glaucoma 365.9 ; Lipoma 214.9 ; Mitral valve prolapse 424.0 ; Angina at rest 413.9 ; Lymphedema 457.1 and Chronic pain 338.29 IMMUNIZATIONS No Known Immunizations SOCIAL HISTORY Never Assessed REASON FOR VISIT Future lab orders PLAN OF CARE VITAL SIGNS MEDICATIONS Unknown [...]
--- OUTSIDE RECORDS SUMMARY | 2018-02-04 14:40 | XMS REPORT ---
Author Author CJ EDGE [facility] Address [address] [place] [address] Care Team Providers Care Marketing Strategy Analyst Name Role Phone CJ EDGE Unavailable PROBLEMS Type Condition ICD9-CM Code DHV36-VS Code Onset Dates Condition Status SNOMED Code Problem Hyperlipidemia E78.5 Active 89161702 Problem Arrhythmia as indication for cardiac pacemaker replacement I49.9 Active 03303757 Problem Sleep apnea, obstructive G47.33 Active 91452541 Problem Primary insomnia F51.01 Active 0044530 Problem Chronic pain G89.29 Active 40882232 Problem Morbid (severe) obesity due to excess calories E66.01 Active 839296456 Problem Body mass index (BMI) of 40.0-44.9 in adult Z68.41 Active 721779963 Problem Other male erectile dysfunction N52.8 Active 187376773 Problem Supraventricular tachycardia I47.1 Active 4769119 Problem Sarcoidosis D86.9 Active 35722985 Problem HTN (hypertension) I10 Active 29862909 Problem Blindness and low vision H54.10 Active 901050058 Problem Myocarditis, unspecified chronicity, 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 Active 08956223 Problem Migraine without aura and without status migrainosus, not intractable G43.009 Active 890353365 Problem 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 Active 591589955 Problem Problems related to release from senior care Z65.2 Active [id number] Problem Chronic pain syndrome G89.4 Active 979776599 Problem Major depressive disorder, recurrent, moderate F33.1 Active 16007257 Problem Open-angle glaucoma of both eyes H40.10X0 Active 88402986 Problem Chronic tension headaches G44.229 Active 232505787 Problem Anxiety F41.9 Active 54522594 Problem Post-traumatic stress disorder, chronic F43.12 Active 424011638 Problem Environmental allergies Z91.09 Active 273562431 Problem Mitral valve prolapse I34.1 Active 051322670 Problem CAD (coronary artery disease) I25.10 Active 59935703 ALLERGIES No Information ENCOUNTERS Encounter Location Date Diagnosis [facility] [id number] [place] [address] 14058- 8650 Oct, [facility] [place] [id number] [place] [address] 34727- 1241 Oct, [facility] [place] [id number] [place] [address] 56630- 3120 Oct, [facility] [place] [address] 19124- 5012 Sep, Arrhythmia as indication for cardiac pacemaker replacement I49.9 [facility] [place] [address] 20619- 1085 Sep, [facility] [place] [address] 22652- 8460 Sep, HTN (hypertension) I10 [facility] [place] [address] 33034- 4811 17 Sep, 2017 [facility] [place] [id number] [place] [address] 08545- 0934 16 Sep, 2017 Body mass index (BMI) of 40.0-44.9 in adult Z68.41 ; Chronic pain G89.29 and Supraventricular tachycardia I47.1 [facility] [id number] [place] [address] 60871- 5039 Sep, [facility] [place] [id number] [place] [address] 15801- 6746 Sep, Sarcoidosis D86.9 [facility] [place] [id number] [place] [address] 11890- 1968 Sep, Sarcoidosis D86.9 [facility] [place] [address] 50163- 2019 Sep, [facility] [place] [id number] [place] [address] 62499- 3787 Sep, [facility] [address] [place] [address] 9871 Sep, [facility] [place] [address] [place] [address]- 0156 Sep, [facility] [place] [address] [address] 0267 Sep, Left leg pain M79.605 [facility] [place] [id number] [place] [address] 97489- 7363 Sep, HTN (hypertension) I10 [facility] [place] [address] [place] [address]- 7149 Sep, [facility] [place] [id number] [place] [address] 26295- 2216 Sep, Post-traumatic stress disorder, unspecified F43.10 ; Major depressive disorder, recurrent, moderate F33.1 and Problems related to release from senior care Z65.2 [facility] [place] [address] [place] [address]- 2464 Sep, [facility] [place] [id number] [place] [address] 07594- 7194 Aug, [facility] [place] [address] [place] [address]- 0253 Aug, Sarcoidosis D86.9 [facility] [place] [address] [place] [address]- 7088 Aug, Sarcoidosis D86.9 [facility] [place] [address] [place] [address]- 7803 Aug, HTN (hypertension) I10 [facility] [place] [address] [place] [address]- 4034 Aug, Post-traumatic stress disorder, unspecified F43.10 ; Major depressive disorder, recurrent, moderate F33.1 and Problems related to release from senior care Z65.2 [facility] [place] [id number] [place] [address] 60119- 8763 Aug, [facility] [place] [id number] [place] [address] 42667- 5232 Aug, Left leg pain M79.605 [facility] [place] [id number] [place] [address] 09584- 2352 Jul, Post-traumatic stress disorder, chronic F43.12 ; Anxiety F41.9 ; Problems related to release from senior care Z65.2 and BMI 40.0-44.9, adult Z68.41 [facility] [place] [id number] [place] [address] 94735- 4571 20 Jul, 2017 HTN (hypertension) I10 ; Body mass index (BMI) of 40.0-44.9 in adult Z68.41 and Acute swimmer''s ear of both sides H60.333 [facility] [id number] [place] [address] 17652- 3107 19 Jul, 2017 Glaucoma H40.9 [facility] [place] [id number] [place] [address] 85780- 8374 14 Jul, 2017 [facility] [id number] [place] [address] 25941- 3305 13 Jul, 2017 Sarcoidosis D86.9 [facility] [place] [id number] [place] [address] 77536- 2026 Jul, Left leg pain M79.605 [facility] [place] [id number] [place] [address] 41539- 3644 Jul, Sarcoidosis D86.9 [facility] [place] [id number] [place] [address] 78158- 5424 Jul, Post-traumatic stress disorder, unspecified F43.10 ; Major depressive disorder, recurrent, moderate F33.1 and Problems related to release from senior care Z65.2 [facility] [place] [id number] [place] [address] 10739- 9083 June, [facility] [id number] [place] [address] 08619 -2277 June, Sore throat J02.9 and BMI 40.0-44.9, adult Z68.41 [facility] [place] [id number] [place] [address] 71691- 6592 June, [facility] [place] [id number] [place] [address] 48850- 6597 June, [facility] [place] [id number] [place] [address] 45037- 9665 June, [facility] [place] [id number] [place] [address] 82034- 8786 June, Left leg pain M79.605 [facility] [place] [id number] [place] [address] 28912- 8138 June, Sarcoidosis D86.9 [facility] [place] [id number] [place] [address] 33345- 0952 June, [facility] [place] [id number] [place] [address] 12825- 7095 June, [facility] [place] [id number] [place] [address] 45457- 7079 June, Left leg pain M79.605 [facility] [place] [id number] [place] [address] 45248- 3113 May, [facility] [place] [id number] [place] [address] 60778- 1675 May, [facility] [place] [id number] [place] [address] 65246- 2675 May, [facility] [place] [id number] [place] [address] 55682- 9958 May, Left leg pain M79.605 [facility] [place] [id number] [place] [address] 60274- 2162 May, Post-traumatic stress disorder, unspecified F43.10 ; Major depressive disorder, recurrent, moderate F33.1 and Problems related to release from senior care Z65.2 [facility] [place] [id number] [place] [address] 58280- 1656 May, Chronic pain G89.29 ; Anxiety F41.9 ; Chest pain, unspecified type R07.9 and BMI 40.0-44.9, adult Z68.41 [facility] [id number] [place] [address] 55104- 5912 30 Apr, 2017 [facility] [place] [id number] [place] [address] 19259- 6227 Apr, Left leg pain M79.605 [facility] [id number] [place] [address] 87358- 9223 27 Apr, 2017 Post-traumatic stress disorder, unspecified F43.10 ; Problems related to release from senior care Z65.2 ; Anxiety F41.9 and BMI 40.0-44.9 , adult Z68.41 [facility] [id number] [place] [address] 64756- 3733 Apr, [facility] [place] [id number] [place] [address] 54100- 8359 Apr, Left leg pain M79.605 [facility] [id number] [place] [address] 29987- 4356 Apr, Post-traumatic stress disorder, unspecified F43.10 ; Major depressive disorder, recurrent, moderate F33.1 and Problems related to release from senior care Z65.2 [facility] [id number] [place] [address] 52898- 4134 Apr, [facility] [id number] [place] [address] 85224- 6052 12 Apr, 2017 Chronic pain G89.29 ; 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 ; Morbid (severe) obesity due to excess calories E66.01 ; Anxiety F41.9 and BMI 40.0-44.9, adult Z68.41 [facility] [id number] [place] [address] 71618 -4264 Apr, Sore throat J02.9 and BMI 40.0-44.9, adult Z68.41 [address] [facility] [address] 07434- 5696 02 Apr, 2017 Left leg pain M79.605 [facility] [address] [id number] Mar, Dental examination Z01.20 [facility] [place] [address] 02600- 1439 Mar, [facility] [address] 08256 -2277 Mar, Cough R05 ; Viral gastroenteritis A08.4 and BMI 40.0-44.9, adult Z68.41 [address] [facility] [address] 02971- 1284 Mar, Left leg pain M79.605 [facility] [place] [address] 83486- 2985 06 Mar, 2017 Post-traumatic stress disorder, unspecified F43.10 ; Major depressive disorder, recurrent, moderate F33.1 and Problems related to release from senior care Z65.2 [facility] [address] 41244- 4439 Feb, Left leg pain M79.605 [facility] [place] [address] 30684- 4180 Feb, [facility] [place] [address] 94665- 9624 Feb, BMI 40.0-44.9, adult Z68.41 ; Chronic pain syndrome G89.4 ; Migraine without aura and without status migrainosus, not intractable G43.009 ; Mitral valve prolapse I34.1 and 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 [facility] [place] [address] 69630- 8736 Feb, Post-traumatic stress disorder, chronic F43.12 ; Anxiety F41.9 ; Problems related to release from senior care Z65.2 and BMI 40.0-44.9, adult Z68.41 [facility] [place] [id number] [place] [address] 90346- 2455 Feb, Post-traumatic stress disorder, unspecified F43.10 ; Major depressive disorder, recurrent, moderate F33.1 and Problems related to release from senior care Z65.2 [facility] [place] [id number] [place] [address] 26576- 8633 Feb, Left leg pain M79.605 [facility] [id number] [place] [address] 49365- 9418 Jan, Post-traumatic stress disorder, unspecified F43.10 ; Major depressive disorder, recurrent, moderate F33.1 and Problems related to release from senior care Z65.2 [facility] [id number] [place] [address] 95469- 0562 Jan, [facility] [place] [id number] [place] [address] 48703- 9212 Jan, [facility] [id number] [place] [address] 81999- 4976 Jan, Anxiety F41.9 [facility] [id number] [place] [address] 10268- 0161 Jan, Left leg pain M79.605 [facility] [place] [id number] [place] [address] 62174- 7695 Dec, Left leg pain M79.605 [facility] [id number] [place] [address] 341249- 3396 Dec, [facility] [id number] [place] [address] 14442- 2683 Dec, Post-traumatic stress disorder, unspecified F43.10 ; Major depressive disorder, recurrent, moderate F33.1 and Problems related to release from senior care Z65.2 [facility] [id number] [place] [address] 45232- 9012 31 Nov, 2016 Chronic pain G89.29 and Anxiety F41.9 [facility] [place] [id number] [place] [address]- 4749 24 Nov, 2016 Chronic pain G89.29 and Anxiety F41.9 [facility] [address] 20235- 7092 16 Nov, 2016 Post-traumatic stress disorder, unspecified F43.10 ; Major depressive disorder, recurrent, moderate F33.1 and Problems related to release from senior care Z65.2 [facility] [id number] [place] [address] 47979- 9909 09 Nov, 2016 Other abnormal findings in specimens from other organs, systems and tissues R89.8 ; Other male erectile dysfunction N52.8 ; Body mass index (BMI) of 40.0-44.9 in adult Z68.41 and Morbid (severe) obesity due to excess calories E66.01 [facility] [id number] [place] [address] 98069- 6090 02 Nov, 2016 Post-traumatic stress disorder, unspecified F43.10 ; Major depressive disorder, recurrent, moderate F33.1 and Problems related to release from senior care Z65.2 [facility] [id number] [place] [address] [id number] 29 Oct, 2016 Dental examination Z01.20 [facility] [id number] [place] [address] 35993- 2881 Oct, [facility] [id number] [place] [address] 87643- 1320 Oct, Encounter for immunization Z23 [id number] [place] [address] 13091- 7711 26 Oct, 2016 Chronic pain G89.29 ; Anxiety F41.9 ; Arrhythmia as indication for cardiac pacemaker replacement I49.9 and Glaucoma H40.9 [address] [place] [address] [place] [address]- 2942 Oct, Anxiety F41.9 ; Post-traumatic stress disorder, chronic F43.12 and Problems related to release from senior care Z65.2 [facility] [id number] [place] [address] 00099- 3007 07 Oct, 2016 Post-traumatic stress disorder, unspecified F43.10 ; Major depressive disorder, recurrent, moderate F33.1 and Problems related to release from senior care Z65.2 [facility] [id number] [place] [address] 28775- 5334 Sep, Chronic pain G89.29 and Anxiety F41.9 [facility] [address] 59107- 0253 Sep, Post-traumatic stress disorder, unspecified F43.10 ; Major depressive disorder, recurrent, moderate F33.1 and Problems related to release from senior care Z65.2 [facility] [id number] [place] [address] 21291- 0813 Sep, Post-traumatic stress disorder, unspecified F43.10 ; Major depressive disorder, recurrent, moderate F33.1 and Problems related to release from senior care Z65.2 [facility] [id number] [place] [address] 76530- 6919 Sep, Chronic pain G89.29 [facility] [id number] [place] [address] 87769- 0031 Aug, Dental caries, unspecified K02.9 [facility] [id number] [place] [address] 22439- 0658 Aug, Sleep apnea, obstructive G47.33 ; Obesity E66.9 ; Chronic pain G89.29 ; HTN (hypertension) I10 ; Major depressive disorder, recurrent, moderate F33.1 ; Anxiety F41.9 ; Chronic tension headaches G44.229 ; Mitral valve prolapse I34.1 ; Arrhythmia as indication for cardiac pacemaker replacement I49.9 ; Dental caries, unspecified K02.9 ; Primary insomnia F51.01 and Hyperlipidemia E78.5 [facility] [id number] [place] [address] 33280- 0106 Aug, Post-traumatic stress disorder, unspecified F43.10 ; Major depressive disorder, recurrent, moderate F33.1 and Problems related to release from senior care Z65.2 [facility] [id number] [place] [address] 02240- 2609 Aug, Dental examination Z01.20 [facility] [address] [place] [address] [id number] Aug, Dental examination Z01.20 [facility] [id number] [place] [address] 38824- 6524 06 Aug, 2016 Post-traumatic stress disorder, unspecified F43.10 ; Major depressive disorder, recurrent, moderate F33.1 and Problems related to release from senior care Z65.2 [facility] [id number] [place] [address] 44894- 5987 Aug, Chronic pain G89.29 and Primary insomnia F51.01 [facility] [id number] [place] [address] 53932- 3986 Jul, [facility] [id number] [place] [address] 50630- 1157 Jul, [facility] [id number] [place] [address] 52414- 3974 Jul, Nausea R11.0 [facility] [id number] [place] [address] 47810- 0551 Jul, Arrhythmia as indication for cardiac pacemaker replacement I49.9 [facility] [id number] [place] [address] 58213- 3143 Jul, Post-traumatic stress disorder, unspecified F43.10 ; Major depressive disorder, recurrent, moderate F33.1 and Problems related to release from senior care Z65.2 [facility] [id number] [place] [address] 26201- 5902 Jul, Anxiety F41.9 [facility] [id number] [place] [address] 87730- 1864 Jul, Chronic pain G89.29 [facility] [id number] [place] [address] 00148- 1524 Jul, Sleep apnea, obstructive G47.33 ; Hyperlipidemia E78.5 ; Chronic pain G89.29 ; Blindness and low vision H54.10 ; Major depressive disorder, recurrent, moderate F33.1 ; Anxiety F41.9 ; Mitral valve prolapse I34.1 ; Arrhythmia as indication for cardiac pacemaker replacement I49.9 ; Primary insomnia F51.01 ; Bilateral headaches R51 and Environmental allergies Z91.09 [address] [id number] [place] [address] 77420- 1923 Jul, Post-traumatic stress disorder, unspecified F43.10 ; Major depressive disorder, recurrent, moderate F33.1 and Problems related to release from senior care Z65.2 [id number] [place] [address] 98296- 9027 June, Post-traumatic stress disorder, chronic F43.12 ; Anxiety F41.9 ; Problems related to release from senior care Z65.2 ; Sleep apnea, obstructive G47.33 and Primary insomnia F51.01 [facility] [id number] [place] [address] 10098- 5571 June, [id number] [place] [address] 06365- 4850 June, [facility] [id number] [place] [address] [id number]- 38[address] June, [facility] [id number] [place] [address] 6[address]99- 4575 June, Chronic pain G89.29 [facility] [id number] [place] [address] 91169- 8217 June, Chronic pain G89.29 [facility] [id number] [place] [address] 30[address]- 2933 June, Lipoma of left lower extremity D17.24 ; Open wound T14.8 and Swelling of left lower extremity M79.89 [facility] [address] [address]- [address] June, Post-traumatic stress disorder, unspecified F43.10 ; Major depressive disorder, recurrent, moderate F33.1 and Problems related to release from senior care Z65.2 [place] [address] [address]- [address] May, Lipoma of left lower extremity D17.24 ; Major depressive disorder, recurrent, moderate F33.1 ; Sleep apnea, obstructive G47.33 ; Hyperlipidemia E78.5 ; Obesity E66.9 ; HTN (hypertension) I10 ; Glaucoma H40.9 ; CAD (coronary artery disease) I25.10 ; Chronic tension headaches G44.229 ; Chronic pain G89.29 ; Anxiety F41.9 ; Nausea R11.0 and Primary insomnia F51.01 [place] [address] [address]- [address] May, [place] [address] [address]- [address] May, Chronic pain G89.29 [place] [address] 25[address]- [address] May, [facility] [id number] [place] [address] 84845- 2767 Apr, Post-traumatic stress disorder, unspecified F43.10 ; Major depressive disorder, recurrent, moderate F33.1 and Problems related to release from senior care Z65.2 [facility] [id number] [place] [address] 118[address]- 6459 Apr, Primary insomnia F51.01 ; Post-traumatic stress disorder, chronic F43.12 and Problems related to release from senior care Z65.[address] [address]- [address] Apr, Post-traumatic stress disorder, unspecified F43.10 ; Major depressive disorder, recurrent, moderate F33.1 and Problems related to release from senior care Z65.2 [facility] [id number] [place] [address] 34510- 2655 16 Apr, 2016 [facility] [id number] [place] [address] 31142- 9721 16 Apr, 2016 Sleep apnea, obstructive G47.33 ; Chronic pain G89.29 ; HTN (hypertension) I10 ; Mitral valve prolapse I34.1 ; Shoulder pain, left M25.512 ; Arrhythmia as indication for cardiac pacemaker replacement I49.9 ; Glaucoma H40.9 ; Bilateral headaches R51 ; Environmental allergies Z91.09 ; Primary insomnia F51.01 and Nausea R11.0 [facility] [facility] [id number] [place] [address] 77367- 8004 15 Apr, 2016 [facility] [id number] [place] [address] 48122- 1259 Apr, [facility] [id number] [place] [address] 10896- 5087 Apr, Post-traumatic stress disorder, unspecified F43.10 ; Major depressive disorder, recurrent, moderate F33.1 and Problems related to release from senior care Z65.2 [facility] [id number] [place] [address] 14904- 1777 07 Apr, 2016 HTN (hypertension) I10 [facility] [id number] [place] [address] 56176- 5822 07 Apr, 2016 HTN (hypertension) I10 [facility] [id number] [place] [address] 67286- 0239 14 Mar, 2016 Chronic pain G89.29 ; Primary insomnia F51.01 and Problems related to release from senior care Z65.2 [facility] [id number] [place] [address] 49297- 2345 07 Mar, 2016 Post-traumatic stress disorder, unspecified F43.10 ; Major depressive disorder, recurrent, moderate F33.1 and Problems related to release from senior care Z65.2 [facility] [id number] [place] [address] 68792- 4164 Feb, Post-traumatic stress disorder, unspecified F43.10 ; Major depressive disorder, recurrent, moderate F33.1 and Problems related to release from senior care Z65.2 [facility] [id number] [place] [address] 37857- 1786 Feb, Chronic tension headaches G44.229 [facility] [id number] [place] [address] 32786- 2502 Feb, Sleep apnea, obstructive G47.33 ; Obesity [...] I49.9 and Primary insomnia F51.01 [facility] [id number] [place] [address] 91377- 5915 Feb, Post-traumatic stress disorder, unspecified F43.10 and Chronic pain G89.29 [place] [id number] [place] [address] 80162- 4548 Feb, [facility] [id number] [place] [address] [id number] Feb, Dental caries K02.9 [facility] [id number] [place] [address] 82122- 7467 Feb, [facility] [address] 99604- 6052 Feb, Post-traumatic stress disorder, unspecified F43.10 ; Major depressive disorder, recurrent, moderate F33.1 and Problems related to release from senior care Z65.2 [facility] [address] 18746- 6888 Jan, Sleep apnea, obstructive G47.33 and Chronic pain G89.29 [facility] [id number] [place] [address] 80524- 9497 Jan, [facility] [id number] [place] [address] 88278- 7427 Jan, Dental examination Z01.20 [facility] [address] 10991- 1700 Jan, [place] [id number] [place] [address] 43537- 2295 Jan, [address] 20952- 7429 Dec, Post-traumatic stress disorder, unspecified F43.10 ; Major depressive disorder, recurrent, moderate F33.1 and Problems related to release from senior care Z65.[address] 80530- 4724 Dec, Encounter for immunization Z23 ; Problems related to release from senior care Z65.2 ; Sleep apnea, obstructive G47.33 and Post-traumatic stress disorder, chronic F43.12 [place] [id number] [place] [address] 65647- 8236 18 Dec, 2015 Sleep apnea, obstructive G47.33 ; Hyperlipidemia E78.5 ; Chronic pain G89.29 ; Glaucoma H40.9 ; HTN (hypertension) I10 ; Post-traumatic stress disorder, unspecified F43.10 ; Anxiety F41.9 ; Chronic tension headaches G44.229 ; Mitral valve prolapse I34.1 and CAD (coronary artery disease) I25.10 [place] [id number] [place] [address] 35683- 8125 15 Dec, 2015 Post-traumatic stress disorder, unspecified F43.10 ; Major depressive disorder, recurrent, moderate F33.1 and Problems related to release from senior care Z65.2 [place] [id number] [place] [address] 41042- 6729 Nov, Chronic pain G89.29 [facility] [address] [address]- 3214 Nov, Post-traumatic stress disorder, unspecified F43.10 ; Major depressive disorder, recurrent, moderate F33.1 and Problems related to release from senior care Z65.2 [facility] [id number] [address]- 9091 Oct, [facility] [id number] [place] [address] 831939- 5020 Oct, [facility] [id number] [place] [address] 98904- 8328 Oct, Post-traumatic stress disorder, unspecified F43.10 ; Major depressive disorder, recurrent, moderate F33.1 and Problems related to release from senior care Z65.2 [facility] [id number] [place] [address] 19754- 2388 08 Oct, 2015 [facility] [id number] [place] [address] 03653- 1412 07 Oct, 2015 Environmental allergies Z91.09 ; Cough R05 and Open-angle glaucoma of both eyes H40.10X0 [facility] [address] [address]- 8512 Sep, [facility] [id number] [place] [address] 40551- 3486 Sep, Post-traumatic stress disorder, unspecified F43.10 ; Major depressive disorder, recurrent, moderate F33.1 and Problems related to release from senior care Z65.2 [facility] [id number] [place] [address] 23620- 5853 Sep, Chronic pain G89.29 [facility] [id number] [place] [address] 44292- 5698 Sep, Other chronic pain G89.29 ; Pain in right shoulder M25.511 and Pain in left shoulder M25.512 [facility] [address] [address] 8700 Sep, [facility] [id number] [place] [address] 95865- 0561 Sep, [facility] [id number] [place] [address] 80111209- 8540 Sep, [facility] [id number] [place] [address] [id number] Aug, Dental examination Z01.20 [facility] [id number] [place] [address] 05859- 8213 Aug, Post-traumatic stress disorder, unspecified F43.10 ; Open- angle glaucoma of both eyes H40.10X0 and Problems related to release from senior care Z65.2 [facility] [id number] [place] [address] 87290- 5895 Aug, [facility] [id number] [place] [address] 87373- 8749 Aug, Sleep apnea, obstructive G47.33 ; Obesity E66.9 ; Hyperlipidemia E78.5 ; Bilateral headaches R51 ; HTN (hypertension) I10 ; Post- traumatic stress disorder, unspecified F43.10 ; Anxiety F41.9 ; Neuropathy G62.9 ; Glaucoma H40.9 and Chronic pain G89.29 [facility] [id number] [place] [address] [id number] Aug, Encounter for dental examination Z01.20 [facility] [id number] [place] [address] 19308- 1789 Aug, Post-traumatic stress disorder, unspecified F43.10 ; Major depressive disorder, recurrent, moderate F33.1 and Problems related to release from senior care Z65.2 [facility] [id number] [place] [address] 92235- 0728 Aug, [facility] [id number] [place] [address] 18607- 1076 Jul, [facility] [address] [address]- 2116 Jul, Post-traumatic stress disorder, unspecified F43.10 and Major depressive disorder, recurrent, moderate F33.1 [facility] [address] [address]- 8417 Jul, [facility] [address] [address]- 2283 Jul, [facility] [id number] [place] [address] 11889- 6835 Jul, Chronic pain G89.29 [facility] [id number] [place] [address] 01734- 3048 June, Post-traumatic stress disorder, unspecified F43.10 and Major depressive disorder, recurrent, moderate F33.1 [facility] [id number] [place] [address] 86416- 7510 June, [facility] [address] [address]- 3286 June, Chronic pain G89.29 [facility] [id number] [place] [address] 60258- 8901 June, Post-traumatic stress disorder, unspecified F43.10 and Major depressive disorder, recurrent, moderate F33.1 [facility] [address] [address]- 6706 May, Post-traumatic stress disorder, unspecified F43.10 and Major depressive disorder, recurrent, moderate F33.1 [facility] [address] [address]- 4629 May, [facility] [id number] [place] [address] 57136- 7233 May, [facility] [address] [address]- 2606 May, [facility] [id number] [place] [address] 79090- 5728 31 Apr, 2015 [facility] [id number] [place] [address] 85666- 6150 Apr, Post-traumatic stress disorder, unspecified F43.10 and Sleep apnea, obstructive G47.33 [facility] [id number] [place] [address] 48197- 3923 Apr, [facility] [id number] [place] [address] 59806- 5142 Apr, Shoulder pain, left M25.512 [facility] [id number] [place] [address] 66041- 9843 Apr, Post-traumatic stress disorder, unspecified F43.10 and Major depressive disorder, recurrent, moderate F33.1 [facility] [id number] [place] [address] 46071- 0309 Apr, [facility] [id number] [place] [address] 36651- 6243 Apr, [facility] [id number] [place] [address] 64953- 1415 08 Apr, 2015 [facility] [id number] [place] [address] 14799- 2589 Apr, Left shoulder pain M25.512 [facility] [id number] [place] [address] 13025- 9832 Mar, [facility] [id number] [place] [address] 78833- 3282 Mar, [facility] [id number] [place] [address] 44392- 1694 Mar, [facility] [id number] [place] [address] 56870- 4686 12 Mar, 2015 Sleep apnea, obstructive G47.33 ; Obesity E66.9 ; Chronic pain G89.29 ; Hyperlipidemia E78.5 ; HTN (hypertension) I10 ; Blindness and low vision H54.10 ; Major depressive disorder, recurrent, moderate F33.1 and Anxiety F41.9 [facility] [id number] [place] [address] 65932- 7268 Mar, [facility] [id number] [place] [address] 04672- 7114 Mar, Post-traumatic stress disorder, unspecified F43.10 and Major depressive disorder, recurrent, moderate F33.1 [facility] [id number] [place] [address] 85194- 2459 08 Mar, 2015 [facility] [address] 570564- 4433 04 Mar, 2015 HTN (hypertension) I10 ; Blindness and low vision H54.10 ; Obesity E66.9 ; Hyperlipidemia E78.5 ; Glaucoma H40.9 ; Chronic pain G89.29 and CAD (coronary artery disease) I25.10 [facility] [id number] [place] [address] 62739- 1632 Feb, [facility] [id number] [place] [address] 09269- 3480 Feb, Post-traumatic stress disorder, unspecified F43.10 ; Obesity E66.9 ; Sleep apnea, obstructive G47.33 and Open-angle glaucoma of both eyes H40.10X0 [facility] [id number] [place] [address] 36664- 4304 Feb, Post-traumatic stress disorder, unspecified F43.10 and Major depressive disorder, recurrent, moderate F33.1 [facility] [id number] [place] [address] 61987- 3437 Feb, [place] [id number] [place] [address] 35177- 9267 Feb, [facility] [id number] [place] [address] 22231- 8343 Feb, HTN (hypertension) I10 ; Post-traumatic stress disorder, unspecified F43.10 ; Blindness and low vision H54.10 ; Obesity E66.9 ; Hyperlipidemia E78.5 ; Chronic pain G89.29 ; Glaucoma H40.9 ; Mitral valve prolapse I34.1 and Bilateral headaches R51 [facility] [id number] [place] [address] 27155- 3067 Feb, [facility] [address] 225291- 9515 Feb, Post-traumatic stress disorder, unspecified F43.10 and Major depressive disorder, recurrent, moderate F33.[address] 889725- 6053 Feb, [facility] [address] 71899- 7083 Feb, [address] 02522- 0704 Jan, [facility] [id number] [place] [address] 19889- 5086 Jan, [address] 50775- 8776 Jan, Obesity E66.9 ; HTN (hypertension) I10 ; Blindness and low vision H54.10 ; Major depressive disorder, recurrent, moderate F33.1 ; Glaucoma H40.9 ; Hyperlipidemia E78.5 ; Sleep apnea, obstructive G47.33 ; Chronic pain G89.29 ; Anxiety F41.9 ; Chronic tension headaches G44.229 and Cough R05 [facility] [id number] [place] [address] 09825- 3434 Jan, [address] 95639- 3704 Jan, [place] [id number] [place] [address] 96177- 9436 Jan, Post-traumatic stress disorder, unspecified F43.10 ; Obesity E66.9 ; Sleep apnea, obstructive G47.33 and Open-angle glaucoma of both eyes H40.10X0 [place] [id number] [place] [address]- 8360 Jan, [place] [address]- 0938 Jan, Post-traumatic stress disorder, unspecified F43.10 and Major depressive disorder, recurrent, moderate F33.1 [place] [id number]- 8044 Dec, [place] [id number] [place] [address]- 5857 Dec, Sleep apnea, obstructive G47.33 ; Obesity E66.9 ; Hyperlipidemia E78.5 ; Glaucoma H40.9 ; Chronic pain G89.29 ; HTN (hypertension ) I10 ; Blindness and low vision H54.10 ; Anxiety F41.9 and CAD (coronary artery disease) I25.10 [facility] [id number] [place] [address] 91860- 1515 Nov, [address] 766031- 6720 Nov, [place] [id number] [place] [address] 87175- 6872 Nov, [place] [id number] [place] [address] 34786- 1357 Nov, [place] [id number] [place] [address] 47450- 8001 Nov, [address] 38559- 9992 Nov, Encounter for immunization Z23 ; Sleep apnea, obstructive G47.33 ; Obesity E66.9 ; Hyperlipidemia E78.5 ; Glaucoma H40.9 ; Chronic pain G89.29 ; Anxiety F41.9 ; Chronic tension headaches G44.229 and HTN (hypertension ) I10 [place] [id number] [address]- 7822 19 Nov, 2014 [facility] [id number] [place] [address] 35696- 8897 14 Nov, 2014 [facility] [id number] [place] [address] 49338- 0468 06 Nov, 2014 Dizziness R42 [facility] [id number] [place] [address] 11477- 5946 Nov, [facility] [id number] [place] [address] 22935- 6377 29 Oct, 2014 [facility] [id number] [place] [address] 96778- 6363 28 Oct, 2014 [facility] [id number] [place] [address] 18366- 9467 Oct, [facility] [id number] [place] [address] 18511- 2345 Oct, [facility] [id number] [place] [address] 32424- 2374 17 Oct, 2014 Dizziness 780.4 ; Essential hypertension 401.9 ; Obesity 278.00 ; Hyperlipidemia 272.4 ; Chronic pain 338.29 ; Glaucoma 365.9 and Anxiety 300.00 [facility] [id number] [place] [address] 27348- 0198 Oct, Essential hypertension 401.9 ; Hyperlipidemia 272.4 ; Glaucoma 365.9 ; Obesity 278.00 ; Chronic pain 338.29 and Allergy to insects V15.06 [facility] [address] [place] [address]- 8586 Sep, [facility] [id number] [place] [address] 20923- 7205 Sep, [facility] [id number] [place] [address] 00305- 1370 Sep, [facility] [id number] [place] [address] 01237- 8726 Sep, [facility] [address] [facility] [id number] [place] [address]- 9112 Aug, Essential hypertension 401.9 ; Obesity 278.00 ; Hyperlipidemia 272.4 ; Glaucoma 365.9 ; Lipoma 214.9 ; Mitral valve prolapse 424.0 ; Angina at rest 413.9 ; Lymphedema 457.1 and Chronic pain 338.29 IMMUNIZATIONS No Known Immunizations SOCIAL HISTORY Never Assessed REASON FOR VISIT f/u PLAN OF CARE Activity Details Follow Up 2 Weeks, 1 hour Reason: VITAL SIGNS MEDICATIONS Unknown Medications RESULTS No Results PROCEDURES Procedure Date Ordered Result Body Site Psychotherapy, patient &/family, 30 minutes, established patient July 09, 2017 INSTRUCTIONS MEDICATIONS ADMINISTERED No Known Medications [...]
--- OUTSIDE RECORDS SUMMARY | 2018-02-04 14:41 | XMS REPORT ---
Author Author ALENA ÁLVAREZ [facility] Address [address] [place] [address] Care Team Providers Care Software Development Specialist Name Role Phone ALENA ÁLVAREZ Unavailable PROBLEMS Type Condition ICD9-CM Code VIJ18-PM Code Onset Dates Condition Status SNOMED Code Problem Hyperlipidemia E78.5 Active 17398280 Problem Arrhythmia as indication for cardiac pacemaker replacement I49.9 Active 64417872 Problem Sleep apnea, obstructive G47.33 Active 79472997 Problem Primary insomnia F51.01 Active 5990582 Problem Chronic pain G89.29 Active 39099975 Problem Morbid (severe) obesity due to excess calories E66.01 Active 821551634 Problem Body mass index (BMI) of 40.0-44.9 in adult Z68.41 Active 467899465 Problem Other male erectile dysfunction N52.8 Active 489949810 Problem Supraventricular tachycardia I47.1 Active 9322717 Problem Sarcoidosis D86.9 Active 70162640 Problem HTN (hypertension) I10 Active 10060426 Problem Blindness and low vision H54.10 Active 537261267 Problem Myocarditis, unspecified chronicity, 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 Active 85055913 Problem Migraine without aura and without status migrainosus, not intractable G43.009 Active 663614118 Problem 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 Active 893362997 Problem Problems related to release from mcc Z65.2 Active 150302197810479 Problem Chronic pain syndrome G89.4 Active 932651305 Problem Major depressive disorder, recurrent, moderate F33.1 Active 04952349 Problem Open-angle glaucoma of both eyes H40.10X0 Active 54863503 Problem Chronic tension headaches G44.229 Active 784707333 Problem Anxiety F41.9 Active 28627153 Problem Post-traumatic stress disorder, chronic F43.12 Active 297108400 Problem Environmental allergies Z91.09 Active 395511737 Problem Mitral valve prolapse I34.1 Active 502141981 Problem CAD (coronary artery disease) I25.10 Active 09119465 ALLERGIES No Information ENCOUNTERS Encounter Location Date Diagnosis [facility] [id number] [address] Oct, [facility] [id number] [place] [address] 24061- 9598 Oct, [facility] [id number] [place] [address] 30334- 9291 Oct, [facility] [id number] [place] [address] 98028- 5008 Sep, HTN (hypertension) I10 [facility] [id number] [place] [address] 85476- 2646 Sep, [facility] [id number] [place] [address] 13874- 6140 16 Sep, 2017 Body mass index (BMI) of 40.0-44.9 in adult Z68.41 ; Chronic pain G89.29 and Supraventricular tachycardia I47.1 [facility] [id number] [place] [address] 21993- 9193 Sep, [facility] [id number] [place] [address] 37338- 8986 Sep, Sarcoidosis D86.9 [facility] [id number] [place] [address] 96292- 3574 Sep, Sarcoidosis D86.9 [facility] [id number] [place] [address] 16525- 0551 Sep, [facility] [id number] [place] [address] 22198- 8813 Sep, [facility] [id number] [place] [address] 58484- 0160 Sep, [facility] [id number] [place] [address] 68568- 3879 Sep, [facility] [id number] [place] [address] 58601- 7615 Sep, Left leg pain M79.605 [facility] [address] [address] 3[address] Sep, HTN (hypertension) I10 [facility] [address] [place] [address] 38760- 0856 Sep, [facility] [address] [place] [address] 46529- 1376 Sep, Post-traumatic stress disorder, unspecified F43.10 ; Major depressive disorder, recurrent, moderate F33.1 and Problems related to release from mcc Z65.2 [facility] [id number] [place] [address] 06158- 2856 Sep, [facility] [id number] [place] [address] 06050- 5798 Aug, [facility] [id number] [place] [address] 41926- 8387 Aug, Sarcoidosis D86.9 [facility] [address] [place] [address] 19752- 0446 Aug, Sarcoidosis D86.9 [facility] [id number] [place] [address] 26811- 7410 Aug, HTN (hypertension) I10 [facility] [address] [place] [address] 04917- 6258 Aug, Post-traumatic stress disorder, unspecified F43.10 ; Major depressive disorder, recurrent, moderate F33.1 and Problems related to release from mcc Z65.2 [facility] [address] [address] 1539 Aug, [facility] [address] [place] [address] 31606- 0328 Aug, Left leg pain M79.605 [facility] [address] [place] [address] 83293- 5636 Jul, Post-traumatic stress disorder, chronic F43.12 ; Anxiety F41.9 ; Problems related to release from mcc Z65.2 and BMI 40.0-44.9, adult Z68.41 [facility] [id number] [place] [address] 25102- 6491 20 Jul, 2017 HTN (hypertension) I10 ; Body mass index (BMI) of 40.0-44.9 in adult Z68.41 and Acute swimmer''s ear of both sides H60.333 [facility] [address] 08801- 2500 19 Jul, 2017 Glaucoma H40.9 [facility] [address] 56132- 8596 14 Jul, 2017 [facility] [address] 14310- 4060 13 Jul, 2017 Sarcoidosis D86.9 [facility] [address] 85612- 9532 12 Jul, 2017 Left leg pain M79.605 [facility] [address] 85258- 9214 12 Jul, 2017 Sarcoidosis D86.9 [facility] [id number] [place] [address] 96565- 3412 Jul, Post-traumatic stress disorder, unspecified F43.10 ; Major depressive disorder, recurrent, moderate F33.1 and Problems related to release from mcc Z65.2 [facility] [id number] [place] [address] 58640- 0503 June, [facility] [address] 36520 -9574 June, Sore throat J02.9 and BMI 40.0-44.9, adult Z68.41 [facility] [id number] [place] [address] 84682- 1064 June, [facility] [address], [place] [address] 7031 June, [facility] [address], [place] [address] 7982 June, [facility] [address], [place] [address] 1854 June, Left leg pain M79.605 [facility] [id number] [place] [address] 45997- 3266 June, Sarcoidosis D86.9 [facility] [address], [place] [address] 9738 June, [facility] [id number] [place] [address] 75754- 5536 June, [facility] [address], [place] [address]- 6236 June, Left leg pain M79.605 [facility] [address], [place] [address] 3708 May, [facility] [id number] [place] [address] 00837- 0627 May, [facility] [address], [place] [address] 6911 May, [facility] [address], [place] [address]- 8158 May, Left leg pain M79.605 [facility] [address], [place] [address] 2430 May, Post-traumatic stress disorder, unspecified F43.10 ; Major depressive disorder, recurrent, moderate F33.1 and Problems related to release from mcc Z65.2 [facility] [address] [address]- 2891 May, Chronic pain G89.29 ; Anxiety F41.9 ; Chest pain, unspecified type R07.9 and BMI 40.0-44.9, adult Z68.41 [facility] [id number] [place] [address] 20997- 5691 30 Apr, 2017 [facility] [address] 54163- 3373 Apr, Left leg pain M79.605 [facility] [address] 15636- 6784 Apr, Post-traumatic stress disorder, unspecified F43.10 ; Problems related to release from mcc Z65.2 ; Anxiety F41.9 and BMI 40.0-44.9 , adult Z68.41 [facility] [facility] [address] 67257- 6345 Apr, [facility] [address] 38439- 1676 Apr, Left leg pain M79.605 [facility] [facility] [address] 29204- 8836 Apr, Post-traumatic stress disorder, unspecified F43.10 ; Major depressive disorder, recurrent, moderate F33.1 and Problems related to release from mcc Z65.2 [facility] [id number] [place] [address] 20663- 8080 Apr, [facility] [id number] [place] [address] 38994- 6206 Apr, Chronic pain G89.29 ; 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 ; Morbid (severe) obesity due to excess calories E66.01 ; Anxiety F41.9 and BMI 40.0-44.9, adult Z68.41 [facility] [address] 59345 -4381 10 Apr, 2017 Sore throat J02.9 and BMI 40.0-44.9, adult Z68.41 [facility] [id number] [place] [address] 36123- 4188 02 Apr, 2017 Left leg pain M79.605 [facility] [address] [place] [address] [id number] Mar, Dental examination Z01.20 [facility] [address] 74991- 8352 Mar, [facility] [address] 16699 -3478 Mar, Cough R05 ; Viral gastroenteritis A08.4 and BMI 40.0-44.9, adult Z68.41 [facility] [id number] [place] [address] 12112- 7887 Mar, Left leg pain M79.605 [facility] [address] 25856- 7581 Mar, Post-traumatic stress disorder, unspecified F43.10 ; Major depressive disorder, recurrent, moderate F33.1 and Problems related to release from mcc Z65.2 [facility] [id number] [place] [address] 48766- 2219 Feb, Left leg pain M79.605 [facility] [address] 65440- 3548 Feb, [place] [address] 15659- 3006 Feb, BMI 40.0-44.9, adult Z68.41 ; Chronic pain syndrome G89.4 ; Migraine without aura and without status migrainosus, not intractable G43.009 ; Mitral valve prolapse I34.1 and 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 [facility] [address] 75555- 4071 Feb, Post-traumatic stress disorder, chronic F43.12 ; Anxiety F41.9 ; Problems related to release from mcc Z65.2 and BMI 40.0-44.9, adult Z68.41 [facility] [address] 79891- 0236 Feb, Post-traumatic stress disorder, unspecified F43.10 ; Major depressive disorder, recurrent, moderate F33.1 and Problems related to release from mcc Z65.2 [facility] [id number] [place] [address] 39225- 8696 Feb, Left leg pain M79.605 [facility] [id number] [place] [address] 38473- 5346 Jan, Post-traumatic stress disorder, unspecified F43.10 ; Major depressive disorder, recurrent, moderate F33.1 and Problems related to release from mcc Z65.2 [facility] [id number] [place] [address] 39414- 6526 Jan, [facility] [id number] [place] [address] 34373- 9376 Jan, [facility] [id number] [place] [address] 18744- 8635 Jan, Anxiety F41.9 [facility] [id number] [place] [address] 85698- 8953 Jan, Left leg pain M79.605 [facility] [id number] [place] [address] 02372- 4860 Dec, Left leg pain M79.605 [facility] [id number] [place] [address] 04880- 3566 Dec, [facility] [id number] [place] [address] 69048- 3632 Dec, Post-traumatic stress disorder, unspecified F43.10 ; Major depressive disorder, recurrent, moderate F33.1 and Problems related to release from mcc Z65.2 [facility] [id number] [place] [address] 17098- 4245 Nov, Chronic pain G89.29 and Anxiety F41.9 [facility] [id number] [place] [address] 70787- 8804 Nov, Chronic pain G89.29 and Anxiety F41.9 [facility] [id number] [place] [address] 74834- 7561 16 Nov, 2016 Post-traumatic stress disorder, unspecified F43.10 ; Major depressive disorder, recurrent, moderate F33.1 and Problems related to release from mcc Z65.2 [facility] [address] 36746- 9273 09 Nov, 2016 Other abnormal findings in specimens from other organs, systems and tissues R89.8 ; Other male erectile dysfunction N52.8 ; Body mass index (BMI) of 40.0-44.9 in adult Z68.41 and Morbid (severe) obesity due to excess calories E66.01 [facility] [address] 67233- 3837 02 Nov, 2016 Post-traumatic stress disorder, unspecified F43.10 ; Major depressive disorder, recurrent, moderate F33.1 and Problems related to release from mcc Z65.2 [facility] [address] [id number] 29 Oct, 2016 Dental examination Z01.[address] 14152- 7517 Oct, [place] [address] 31321- 3836 28 Oct, 2016 Encounter for immunization Z23 [address] 14451- 4649 Oct, Chronic pain G89.29 ; Anxiety F41.9 ; Arrhythmia as indication for cardiac pacemaker replacement I49.9 and Glaucoma H40.[address] 35619- 8397 Oct, Anxiety F41.9 ; Post-traumatic stress disorder, chronic F43.12 and Problems related to release from mcc Z65.2 [facility] [address] 53334- 5723 Oct, Post-traumatic stress disorder, unspecified F43.10 ; Major depressive disorder, recurrent, moderate F33.1 and Problems related to release from mcc Z65.2 [facility] [id number] [place] [address] 67051- 9545 Sep, Chronic pain G89.29 and Anxiety F41.9 [address] [id number] [place] [address] 56403- 0499 Sep, Post-traumatic stress disorder, unspecified F43.10 ; Major depressive disorder, recurrent, moderate F33.1 and Problems related to release from mcc Z65.2 [facility] [id number] [place] [address] 51456- 6289 Sep, Post-traumatic stress disorder, unspecified F43.10 ; Major depressive disorder, recurrent, moderate F33.1 and Problems related to release from mcc Z65.2 [id number] [place] [address] 11009- 8834 Sep, Chronic pain G89.29 [facility] [id number] [place] [address] 86621- 7288 Aug, Dental caries, unspecified K02.9 [facility] [id number] [place] [address] 17335- 9151 Aug, Sleep apnea, obstructive G47.33 ; Obesity E66.9 ; Chronic pain G89.29 ; HTN (hypertension) I10 ; Major depressive disorder, recurrent, moderate F33.1 ; Anxiety F41.9 ; Chronic tension headaches G44.229 ; Mitral valve prolapse I34.1 ; Arrhythmia as indication for cardiac pacemaker replacement I49.9 ; Dental caries, unspecified K02.9 ; Primary insomnia F51.01 and Hyperlipidemia E78.5 [id number] [place] [address] 47791- 3766 Aug, Post-traumatic stress disorder, unspecified F43.10 ; Major depressive disorder, recurrent, moderate F33.1 and Problems related to release from mcc Z65.2 [address] [address]- 2292 20 Aug, 2016 Dental examination Z01.20 [facility] [address] [place] [address] [id number] 13 Aug, 2016 Dental examination Z01.20 [facility] [id number] [place] [address] 63112- 5174 06 Aug, 2016 Post-traumatic stress disorder, unspecified F43.10 ; Major depressive disorder, recurrent, moderate F33.1 and Problems related to release from mcc Z65.2 [facility] [id number] [place] [address] 16997- 1026 05 Aug, 2016 Chronic pain G89.29 and Primary insomnia F51.01 [facility] [id number] [place] [address] 65856- 4393 Jul, [facility] [id number] [place] [address] 76964- 8598 Jul, [facility] [id number] [place] [address] 44006- 0512 30 Jul, 2016 Nausea R11.0 [facility] [id number] [place] [address] 73910- 3972 Jul, Arrhythmia as indication for cardiac pacemaker replacement I49.9 [facility] [id number] [place] [address] 40444- 0975 Jul, Post-traumatic stress disorder, unspecified F43.10 ; Major depressive disorder, recurrent, moderate F33.1 and Problems related to release from mcc Z65.2 [facility] [address] [place] [address] 08333- 2289 09 Jul, 2016 Anxiety F41.9 [facility] [id number] [place] [address] 54776- 4511 08 Jul, 2016 Chronic pain G89.29 [facility] [id number] [place] [address] 24757- 5662 Jul, Sleep apnea, obstructive G47.33 ; Hyperlipidemia E78.5 ; Chronic pain G89.29 ; Blindness and low vision H54.10 ; Major depressive disorder, recurrent, moderate F33.1 ; Anxiety F41.9 ; Mitral valve prolapse I34.1 ; Arrhythmia as indication for cardiac pacemaker replacement I49.9 ; Primary insomnia F51.01 ; Bilateral headaches R51 and Environmental allergies Z91.09 [facility] [facility] [id number] [place] [address] 04739- 3906 Jul, Post-traumatic stress disorder, unspecified F43.10 ; Major depressive disorder, recurrent, moderate F33.1 and Problems related to release from mcc Z65.2 [place] [address] 36750- 1914 June, Post-traumatic stress disorder, chronic F43.12 ; Anxiety F41.9 ; Problems related to release from mcc Z65.2 ; Sleep apnea, obstructive G47.33 and Primary insomnia F51.01 [place] [address] 44528- 5919 June, [place] [address] 21977- 0477 June, [place] [address] 36206- 2063 June, [place] [id number] [place] [address] 33849- 8644 June, Chronic pain G89.29 [place] [facility] [address] 07372- 3882 June, Chronic pain G89.29 [facility] [id number] [place] [address] 52663- 3832 June, Lipoma of left lower extremity D17.24 ; Open wound T14.8 and Swelling of left lower extremity M79.89 [place] [facility] [id number] [place] [address] 27428- 5956 June, Post-traumatic stress disorder, unspecified F43.10 ; Major depressive disorder, recurrent, moderate F33.1 and Problems related to release from mcc Z65.2 [facility] [id number] [place] [address] 25036- 2497 May, Lipoma of left lower extremity D17.24 ; Major depressive disorder, recurrent, moderate F33.1 ; Sleep apnea, obstructive G47.33 ; Hyperlipidemia E78.5 ; Obesity E66.9 ; HTN (hypertension) I10 ; Glaucoma H40.9 ; CAD (coronary artery disease) I25.10 ; Chronic tension headaches G44.229 ; Chronic pain G89.29 ; Anxiety F41.9 ; Nausea R11.0 and Primary insomnia F51.01 [place] [id number] [place] [address] 67533- 8688 May, [place] [facility] [id number] [place] [address] 37064- 9457 May, Chronic pain G89.29 [place] [id number] [place] [address] 39515- 3046 May, [place] [id number] [place] [address] 92800- 2523 31 Apr, 2016 Post-traumatic stress disorder, unspecified F43.10 ; Major depressive disorder, recurrent, moderate F33.1 and Problems related to release from mcc Z65.2 [place] [id number] [place] [address] 80516- 2652 Apr, Primary insomnia F51.01 ; Post-traumatic stress disorder, chronic F43.12 and Problems related to release from mcc Z65.2 [place] [id number] [place] [address] 95763- 5417 17 Apr, 2016 Post-traumatic stress disorder, unspecified F43.10 ; Major depressive disorder, recurrent, moderate F33.1 and Problems related to release from mcc Z65.2 [place] [id number] [place] [address] 19540- 6666 16 Apr, 2016 [place] [id number] [place] [address] 72033- 8933 16 Apr, 2016 Sleep apnea, obstructive G47.33 ; Chronic pain G89.29 ; HTN (hypertension) I10 ; Mitral valve prolapse I34.1 ; Shoulder pain, left M25.512 ; Arrhythmia as indication for cardiac pacemaker replacement I49.9 ; Glaucoma H40.9 ; Bilateral headaches R51 ; Environmental allergies Z91.09 ; Primary insomnia F51.01 and Nausea R11.0 [place] [address] 61425- 1588 Apr, [place] [address] 31845- 0213 Apr, [place] [address] 43231- 6761 Apr, Post-traumatic stress disorder, unspecified F43.10 ; Major depressive disorder, recurrent, moderate F33.1 and Problems related to release from mcc Z65.2 [place] [id number] [place] [address] 83187- 6110 Apr, HTN (hypertension) I10 [place] [id number] [place] [address] 05352- 1831 Apr, HTN (hypertension) I10 [place] [address] [place] [id number] [place] [address] 52128- 3140 14 Mar, 2016 Chronic pain G89.29 ; Primary insomnia F51.01 and Problems related to release from [facility] Z65.2 [place] [id number] [place] [address] 26224- 5886 07 Mar, 2016 Post-traumatic stress disorder, unspecified F43.10 ; Major depressive disorder, recurrent, moderate F33.1 and Problems related to release from [facility] Z65.2 [place] [address] [place] [address] [id number] [place], [place] [id number]- [address] Feb, Post-traumatic stress disorder, unspecified F43.10 ; Major depressive disorder, recurrent, moderate F33.1 and Problems related to release from [facility] Z65.2 [place] [address] [place] [address] [id number] [place] [address] 21975- 3922 Feb, Chronic tension headaches G44.[address] [address]- [address] Feb, Sleep apnea, obstructive G47.33 ; Obesity [...] pacemaker replacement I49.9 and Primary insomnia F51.[address] 22942- [address]77 Feb, Post-traumatic stress disorder, unspecified F43.10 and Chronic pain G89.[address] 13846- [address]64 Feb, [facility] [address] [id number] Feb, Dental caries K02.9 [place] [id number] [place] [address] 28711- 9250 Feb, [place] [id number] [place] [address] 07359- 5865 Feb, Post-traumatic stress disorder, unspecified F43.10 ; Major depressive disorder, recurrent, moderate F33.1 and Problems related to release from [facility] Z65.[address] 56612- 5399 Jan, Sleep apnea, obstructive G47.33 and Chronic pain G89.[address] 63220- 5931 Jan, [address] 46277- 7749 14 Jan, 2016 Dental examination Z01.20 [place] [address] [address] [id number] [address] Jan, [place] [id number] [place] [address] Jan, [place] [id number] [place] [address] 87353- 2319 Dec, Post-traumatic stress disorder, unspecified F43.10 ; Major depressive disorder, recurrent, moderate F33.1 and Problems related to release from mcc Z65.2 [place] [id number] [place] [address] 51478- 1407 Dec, Encounter for immunization Z23 ; Problems related to release from mcc Z65.2 ; Sleep apnea, obstructive G47.33 and Post-traumatic stress disorder, chronic F43.12 [place] [id number] [place] [address] 50093- 3210 Dec, Sleep apnea, obstructive G47.33 ; Hyperlipidemia E78.5 ; Chronic pain G89.29 ; Glaucoma H40.9 ; HTN (hypertension) I10 ; Post-traumatic stress disorder, unspecified F43.10 ; Anxiety F41.9 ; Chronic tension headaches G44.229 ; Mitral valve prolapse I34.1 and CAD (coronary artery disease) I25.[address] [place] [address] 87226- 4099 Dec, Post-traumatic stress disorder, unspecified F43.10 ; Major depressive disorder, recurrent, moderate F33.1 and Problems related to release from mcc Z65.2 [place] [address] [place] [address] 47157- 8203 Nov, Chronic pain G89.29 [place] [id number] [place] [address] 96270- 7031 Nov, Post-traumatic stress disorder, unspecified F43.10 ; Major depressive disorder, recurrent, moderate F33.1 and Problems related to release from mcc Z65.2 [facility] [address], [place] [address] Oct, [facility] [id number] [place] [address] 31078- 9679 Oct, [facility] [id number] [place] [address] 64293- 0132 Oct, Post-traumatic stress disorder, unspecified F43.10 ; Major depressive disorder, recurrent, moderate F33.1 and Problems related to release from mcc Z65.2 [facility] [address] [place] [address] 00882- 3589 08 Oct, 2015 [facility] [id number] [place] [address] 05110- 9850 07 Oct, 2015 Environmental allergies Z91.09 ; Cough R05 and Open-angle glaucoma of both eyes H40.10X0 [facility] [id number] [place] [address] 48364- 6685 Sep, [facility] [id number] [place] [address] 69404- 7029 Sep, Post-traumatic stress disorder, unspecified F43.10 ; Major depressive disorder, recurrent, moderate F33.1 and Problems related to release from mcc Z65.2 [facility] [address], [place] [address] 6[address] Sep, Chronic pain G89.29 [facility] [id number] [place] [address] 03974- 5785 Sep, Pain in left shoulder M25.512 ; Pain in right shoulder M25.511 and Other chronic pain G89.29 [facility] [id number] [place] [address] 64696- 7176 Sep, [facility] [id number] [place] [address] 06543- 0378 Sep, [facility] [id number] [place] [address] 13866- 7358 Sep, [facility] [id number] [id number] Aug, Dental examination Z01.20 [facility] [id number] [place] [address] 44635495- 8469 Aug, Post-traumatic stress disorder, unspecified F43.10 ; Open- angle glaucoma of both eyes H40.10X0 and Problems related to release from mcc Z65.2 [facility] [id number] [place] [address] 44414- 0587 Aug, [facility] [id number] [place] [address] 59636- 9823 Aug, Sleep apnea, obstructive G47.33 ; Obesity E66.9 ; Hyperlipidemia E78.5 ; Bilateral headaches R51 ; HTN (hypertension) I10 ; Post- traumatic stress disorder, unspecified F43.10 ; Anxiety F41.9 ; Neuropathy G62.9 ; Glaucoma H40.9 and Chronic pain G89.29 [facility] [id number] [id number] Aug, Encounter for dental examination Z01.20 [facility] [id number] [place] [address] 57966- 7738 Aug, Post-traumatic stress disorder, unspecified F43.10 ; Major depressive disorder, recurrent, moderate F33.1 and Problems related to release from mcc Z65.2 [facility] [address] [place] [address] 92631- 5411 Aug, [facility] [id number] [place] [address] 46503- 3472 Jul, [facility] [id number] [place] [address] 21421- 8616 Jul, Post-traumatic stress disorder, unspecified F43.10 and Major depressive disorder, recurrent, moderate F33.1 [place] [id number] [place] [address] 55257- 4188 Jul, [facility] [address], [place] [address] Jul, [facility] [id number] [place] [address] 52458- 1404 Jul, Chronic pain G89.29 [facility] [address], [place] [address] June, Post-traumatic stress disorder, unspecified F43.10 and Major depressive disorder, recurrent, moderate F33.1 [facility] [address], [place] [address] 0679 June, [facility] [id number] [place] [address] 46143- 6134 June, Chronic pain G89.29 [facility] [address], [place] [address] 455[address] June, Post-traumatic stress disorder, unspecified F43.10 and Major depressive disorder, recurrent, moderate F33.1 [facility] [address], [place] [address] 27[address] May, Post-traumatic stress disorder, unspecified F43.10 and Major depressive disorder, recurrent, moderate F33.1 [facility] [address], [place] [address] 4290 May, [facility] [address], [place] [address] 8753 May, [facility] [address], [place] [address] 2053 May, [facility] [id number] [place] [address] 80135- 0243 Apr, [facility] [address], [place] [address] 1586 Apr, Post-traumatic stress disorder, unspecified F43.10 and Sleep apnea, obstructive G47.33 [facility] [id number] [place] [address] 04325- 7001 31 Apr, 2015 [facility] [id number] [place] [address] 73188- 7228 21 Apr, 2015 Shoulder pain, left M25.512 [facility] [id number] [place] [address] 11162- 9585 18 Apr, 2015 Post-traumatic stress disorder, unspecified F43.10 and Major depressive disorder, recurrent, moderate F33.1 [facility] [id number] [place] [address] 15070- 8580 17 Apr, 2015 [facility] [id number] [place] [address] 60606- 1462 11 Apr, 2015 [facility] [id number] [place] [address] 51064- 4857 08 Apr, 2015 [facility] [id number] [place] [address] 23756- 7220 07 Apr, 2015 Left shoulder pain M25.512 [facility] [id number] [place] [address] 09838- 7348 Mar, [facility] [id number] [place] [address] 11755- 9584 Mar, [facility] [id number] [place] [address] 42288- 7204 18 Mar, 2015 [facility] [id number] [place] [address] 15738- 6023 12 Mar, 2015 Sleep apnea, obstructive G47.33 ; Obesity E66.9 ; Chronic pain G89.29 ; Hyperlipidemia E78.5 ; HTN (hypertension) I10 ; Blindness and low vision H54.10 ; Major depressive disorder, recurrent, moderate F33.1 and Anxiety F41.9 [facility] [id number] [place] [address] 25942- 7056 Mar, [facility] [id number] [place] [address] 63653- 9415 Mar, Post-traumatic stress disorder, unspecified F43.10 and Major depressive disorder, recurrent, moderate F33.1 [place] [id number] [place] [address] 25374- 4396 08 Mar, 2015 [place] [id number] [place] [address] 776199- 7914 04 Mar, 2015 HTN (hypertension) I10 ; Blindness and low vision H54.10 ; Obesity E66.9 ; Hyperlipidemia E78.5 ; Glaucoma H40.9 ; Chronic pain G89.29 and CAD (coronary artery disease) I25.10 [place] [id number] [place] [address] Feb, [place] [id number] [place] [address] 92751- 9442 Feb, Post-traumatic stress disorder, unspecified F43.10 ; Obesity E66.9 ; Sleep apnea, obstructive G47.33 and Open-angle glaucoma of both eyes H40.10X0 [place] [id number] [place] [address] 37511- 9280 Feb, Post-traumatic stress disorder, unspecified F43.10 and Major depressive disorder, recurrent, moderate F33.1 [place] [id number] [place] [address] 83986- 7984 Feb, [place] [id number] [place] [address] 97521- 7954 Feb, [place] [id number] [place] [address] 24208- 7806 Feb, HTN (hypertension) I10 ; Post-traumatic stress disorder, unspecified F43.10 ; Blindness and low vision H54.10 ; Obesity E66.9 ; Hyperlipidemia E78.5 ; Chronic pain G89.29 ; Glaucoma H40.9 ; Mitral valve prolapse I34.1 and Bilateral headaches R51 [place] [id number] [place] [address] 35081- 8445 Feb, [facility] [id number] [place] [address] 49966- 1748 Feb, Post-traumatic stress disorder, unspecified F43.10 and Major depressive disorder, recurrent, moderate F33.1 [facility] [address], [place] [address]- 0705 Feb, [facility] [id number] [place] [address] 27741- 9905 Feb, [facility] [id number] [place] [address] 05339- 8199 Jan, [place] [id number] [place] [address] 07775- 7915 Jan, [place] [id number] [place] [address] 03919- 3900 Jan, Obesity E66.9 ; HTN (hypertension) I10 ; Blindness and low vision H54.10 ; Major depressive disorder, recurrent, moderate F33.1 ; Glaucoma H40.9 ; Hyperlipidemia E78.5 ; Sleep apnea, obstructive G47.33 ; Chronic pain G89.29 ; Anxiety F41.9 ; Chronic tension headaches G44.229 and Cough R05 [place] [address], [place] [address] 9654 Jan, [place] [id number] [place] [address] 00570- 7048 Jan, [place] [id number] [place] [address] 94146- 0357 Jan, Post-traumatic stress disorder, unspecified F43.10 ; Obesity E66.9 ; Sleep apnea, obstructive G47.33 and Open-angle glaucoma of both eyes H40.10X0 [place] [address], [place] [address]- 9301 Jan, [place] [id number] [place] [address] 58258- 6971 Jan, Post-traumatic stress disorder, unspecified F43.10 and Major depressive disorder, recurrent, moderate F33.1 [facility] [address] 07733- 5873 Dec, [facility] [address] 66767- 0690 Dec, Sleep apnea, obstructive G47.33 ; Obesity E66.9 ; Hyperlipidemia E78.5 ; Glaucoma H40.9 ; Chronic pain G89.29 ; HTN (hypertension ) I10 ; Blindness and low vision H54.10 ; Anxiety F41.9 and CAD (coronary artery disease) I25.[address] 82714- 9366 Nov, [facility] [address] 16062- 8059 Nov, [facility] [address] [place] [address] 81167- 8008 Nov, [facility] [address] 33390- 5063 Nov, [address] 95403- 0750 Nov, [facility] [address] [place] [address] 18106- 5735 Nov, Encounter for immunization Z23 ; Sleep apnea, obstructive G47.33 ; Obesity E66.9 ; Hyperlipidemia E78.5 ; Glaucoma H40.9 ; Chronic pain G89.29 ; Anxiety F41.9 ; Chronic tension headaches G44.229 and HTN (hypertension ) I10 [facility] [address] [place] [address] 88958- 9446 Nov, [facility] [address] [place] [address] 91411- 1565 Nov, [facility] [address] [place] [address] 56761- 0498 Nov, Dizziness R42 [facility] [address], [place] [address]- 2640 Nov, [facility] [id number] [place] [address] 95885- 1065 Oct, [facility] [id number] [place] [address] 57933- 4654 Oct, [facility] [id number] [place] [address] 83586- 8101 Oct, [facility] [id number] [place] [address] 65386- 4699 Oct, [facility] [id number] [place] [address] 92929- 8684 Oct, Dizziness 780.4 ; Essential hypertension 401.9 ; Obesity 278.00 ; Hyperlipidemia 272.4 ; Chronic pain 338.29 ; Glaucoma 365.9 and Anxiety 300.00 [facility] [id number] [place] [address] 46033- 4439 Oct, Essential hypertension 401.9 ; Hyperlipidemia 272.4 ; Glaucoma 365.9 ; Obesity 278.00 ; Chronic pain 338.29 and Allergy to insects V15.06 [facility] [id number] [place] [address] 10784- 3235 Sep, [facility] [id number] [place] [address] 41774- 3418 Sep, [facility] [id number] [place] [address] 41599- 3161 Sep, [facility] [id number] [place] [address] 50571- 2001 Sep, [facility] [id number] [place] [address] 69775- 6492 Aug, Essential hypertension 401.9 ; Obesity 278.00 [...]
--- OUTSIDE RECORDS SUMMARY | 2018-02-04 14:41 | XMS REPORT ---
Author Author RODRIGO RODRIGUEZ [facility] Address [address] [place] [address] Phone Unavailable Care Team Providers Care Track Greaser Name Role Phone RODRIGO RODRIGUEZ Unavailable Unavailable PROBLEMS Type Condition ICD9-CM Code HZB24-XY Code Onset Dates Condition Status SNOMED Code Problem Hyperlipidemia E78.5 Active 40209100 Problem Arrhythmia as indication for cardiac pacemaker replacement I49.9 Active 42215514 Problem Sleep apnea, obstructive G47.33 Active 56373929 Problem Primary insomnia F51.01 Active 9646022 Problem Chronic pain G89.29 Active 26396646 Problem Morbid (severe) obesity due to excess calories E66.01 Active 634966345 Problem Body mass index (BMI) of 40.0-44.9 in adult Z68.41 Active 502653157 Problem Other male erectile dysfunction N52.8 Active 882245908 Problem Supraventricular tachycardia I47.1 Active 2772322 Problem Sarcoidosis D86.9 Active 86088009 Problem HTN (hypertension) I10 Active 15946521 Problem Blindness and low vision H54.10 Active 551421493 Problem Myocarditis, unspecified chronicity, 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 Active 03190664 Problem Migraine without aura and without status migrainosus, not intractable G43.009 Active 850513508 Problem 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 Active 764092053 Problem Problems related to release from long-term Z65.2 Active 941399242324726 Problem Chronic pain syndrome G89.4 Active 251243793 Problem Major depressive disorder, recurrent, moderate F33.1 Active 97680291 Problem Open-angle glaucoma of both eyes H40.10X0 Active 66447863 Problem Chronic tension headaches G44.229 Active 372352117 Problem Anxiety F41.9 Active 80712226 Problem Post-traumatic stress disorder, chronic F43.12 Active 855793263 Problem Environmental allergies Z91.09 Active 684677597 Problem Mitral valve prolapse I34.1 Active 905602122 Problem CAD (coronary artery disease) I25.10 Active 23469357 ALLERGIES Substance Reaction Event Type Date Status Xalatan upper lid irritation Drug Allergy June, Active Penicillin G Potassium rash Drug Allergy June, Active Aspirin nausea and vomiting Drug Allergy June, Active bandaides blisters Non Drug Allergy June, Active Wasp venom anaphylaxis Non Drug Allergy June, Active ENCOUNTERS Encounter Location Date Diagnosis [facility] [id number] [place] [address] 43497- 9892 Oct, [facility] [address] 53128- 1194 Oct, [facility] [address] 05909- 8059 Oct, [place] [address] 00123- 5646 Sep, HTN (hypertension) I10 [place] [address] 21994- 7202 Sep, [place] [address] 45839- 2306 Sep, Body mass index (BMI) of 40.0-44.9 in adult Z68.41 ; Chronic pain G89.29 and Supraventricular tachycardia I47.1 [place] [id number] [place] [address] 81797- 2896 Sep, [place] [id number] [place] [address] 27874- 9272 Sep, Sarcoidosis D86.9 [place] [id number] [place] [address] 33190- 1877 Sep, Sarcoidosis D86.9 [place] [id number] [place] [address] 15420- 6652 Sep, [place] [id number] [place] [address] 16205- 8356 Sep, [facility] [address] 23580- 3830 Sep, [facility] [id number] [address] Sep, [facility] [id number] [place] [address] 86961- 1076 Sep, Left leg pain M79.605 [facility] [address], [place] [address] 8656 Sep, HTN (hypertension) I10 [facility] [id number] [place] [address] 07387- 5226 Sep, [facility] [id number] [place] [address] 20306- 8330 Sep, Post-traumatic stress disorder, unspecified F43.10 ; Major depressive disorder, recurrent, moderate F33.1 and Problems related to release from long-term Z65.2 [facility] [id number] [place] [address] 84910- 3006 Sep, [facility] [id number] [address] 00[address] Aug, [facility] [address], [place] [address] 7316 Aug, Sarcoidosis D86.9 [facility] [address], [place] [address]- 2377 Aug, Sarcoidosis D86.9 [facility] [address], [place] [address]- 2544 Aug, HTN (hypertension) I10 [facility] [address] [facility] [id number] [address] 3[address] Aug, Post-traumatic stress disorder, unspecified F43.10 ; Major depressive disorder, recurrent, moderate F33.1 and Problems related to release from long-term Z65.2 [facility] [id number] [address] 20[address] Aug, [facility] [id number] [place] [address] 71144- 7734 Aug, Left leg pain M79.605 [place] [address] 39146- 2803 Jul, Post-traumatic stress disorder, chronic F43.12 ; Anxiety F41.9 ; Problems related to release from long-term Z65.2 and BMI 40.0-44.9, adult Z68.41 [place] [address] 01991- 6157 20 Jul, 2017 HTN (hypertension) I10 ; Body mass index (BMI) of 40.0-44.9 in adult Z68.41 and Acute swimmer''s ear of both sides H60.333 [place] [id number] [place] [address] 00787- 4611 Jul, Glaucoma H40.9 [place] [address] 96361- 7766 Jul, [place] [address] 97087- 9180 Jul, Sarcoidosis D86.9 [place] [address] 26349- 7183 Jul, Left leg pain M79.605 [place] [address] 73889- 6560 Jul, Sarcoidosis D86.9 [place] [address] 26481- 7391 Jul, Post-traumatic stress disorder, unspecified F43.10 ; Major depressive disorder, recurrent, moderate F33.1 and Problems related to release from long-term Z65.2 [place] [id number] [place] [address] 01085- 5417 June, [facility] [id number] [place] [address] 89100 -5974 June, Sore throat J02.9 and BMI 40.0-44.9, adult Z68.41 [facility] [id number] [address] 5564 June, [facility] [id number] [place] [address] 48432- 6683 June, [facility] [id number] [place] [address] 23195- 8304 June, [facility] [id number] [place] [address] 07624- 2100 June, Left leg pain M79.605 [facility] [id number] [place] [address] 24682- 3242 June, Sarcoidosis D86.9 [facility] [id number] [place] [address] 73863- 5082 June, [facility] [id number] [place] [address] 34628- 8499 June, [facility] [id number] [place] [address] 73984- 8008 June, Left leg pain M79.605 [facility] [id number] [place] [address] 41988- 3987 May, [facility] [id number] [place] [address] 37477- 5370 May, [facility] [id number] [place] [address] 09616- 6848 May, [facility] [id number] [place] [address] 64981- 6272 May, Left leg pain M79.605 [facility] [id number] [place] [address] 56800- 9684 May, Post-traumatic stress disorder, unspecified F43.10 ; Major depressive disorder, recurrent, moderate F33.1 and Problems related to release from long-term Z65.2 [place] [id number] [place] [address] 41102- 7212 04 May, 2017 Chronic pain G89.29 ; Anxiety F41.9 ; Chest pain, unspecified type R07.9 and BMI 40.0-44.9, adult Z68.41 [place] [id number] [place] [address] 50584- 3618 30 Apr, 2017 [place] [address] 52106- 7065 29 Apr, 2017 Left leg pain M79.605 [place] [id number] [place] [address] 14466- 8565 27 Apr, 2017 Post-traumatic stress disorder, unspecified F43.10 ; Problems related to release from long-term Z65.2 ; Anxiety F41.9 and BMI 40.0-44.9 , adult Z68.41 [place] [id number] [place] [address] 13129- 5859 22 Apr, 2017 [place] [id number] [place] [address] 75638- 5547 19 Apr, 2017 Left leg pain M79.605 [place] [id number] [place] [address] 19634- 9320 13 Apr, 2017 Post-traumatic stress disorder, unspecified F43.10 ; Major depressive disorder, recurrent, moderate F33.1 and Problems related to release from long-term Z65.2 [place] [id number] [place] [address] 04044- 9202 12 Apr, 2017 [place] [id number] [place] [address] 88978- 6281 12 Apr, 2017 Chronic pain G89.29 ; 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 [id number] [place] [address] 31174- 3417 02 Apr, 2017 Left leg pain M79.605 [facility] [id number] [place] [address] [id number] 28 Mar, [address] [facility] [address] 39504- 1695 23 Mar, 2017 [facility] [id number] [place] [address] 81214 -8665 Mar, Cough R05 ; Viral gastroenteritis A08.4 and BMI 40.0-44.9, adult Z68.41 [place] [address] 28499- 8145 19 Mar, 2017 Left leg pain M79.605 [facility] [address] 62391- 4798 06 Mar, 2017 Post-traumatic stress disorder, unspecified F43.10 ; Major depressive disorder, recurrent, moderate F33.1 and Problems related to release from long-term Z65.2 [facility] [id number] [place] [address] 81339- 4309 Feb, Left leg pain M79.605 [facility] [id number] [place] [address] 09724- 5959 Feb, [place] [id number] [place] [address] 93792- 6180 Feb, BMI 40.0-44.9, adult Z68.41 ; Chronic pain syndrome G89.4 ; Migraine without aura and without status migrainosus, not intractable G43.009 ; Mitral valve prolapse I34.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 [facility] [id number] [place] [address] 35109- 8009 Feb, Post-traumatic stress disorder, chronic F43.12 ; Anxiety F41.9 ; Problems related to release from long-term Z65.2 and BMI 40.0-44.9, adult Z68.41 [place] [id number] [place] [address]- 9485 Feb, Post-traumatic stress disorder, unspecified F43.10 ; Major depressive disorder, recurrent, moderate F33.1 and Problems related to release from long-term Z65.2 [place] [id number] [place] [address] 14805- 8599 Feb, Left leg pain M79.605 [place] [id number] [place] [address] 37819- 7657 Jan, Post-traumatic stress disorder, unspecified F43.10 ; Major depressive disorder, recurrent, moderate F33.1 and Problems related to release from long-term Z65.2 [place] [id number] [place] [address] 61046- 1743 Jan, [place] [id number] [place] [address] 22959- 9712 Jan, [place] [id number] [place] [address] 80104- 9626 Jan, Anxiety F41.9 [place] [id number] [place] [address] 68164- 9528 Jan, Left leg pain M79.605 [place] [id number] [place] [address] 56560- 4830 Dec, Left leg pain M79.605 [place] [id number] [place] [address] 83476- 1400 Dec, [place] [id number] [place] [address] 61521- 3976 Dec, Post-traumatic stress disorder, unspecified F43.10 ; Major depressive disorder, recurrent, moderate F33.1 and Problems related to release from long-term Z65.2 [place] [address] [place] [address]- 3053 31 Nov, 2016 Chronic pain G89.29 and Anxiety F41.9 [place] [address] 21802- 4362 24 Nov, 2016 Chronic pain G89.29 and Anxiety F41.9 [place] [address] 81951- 0912 16 Nov, 2016 Post-traumatic stress disorder, unspecified F43.10 ; Major depressive disorder, recurrent, moderate F33.1 and Problems related to release from long-term Z65.2 [place] [address] 33259- 2389 09 Nov, 2016 Other abnormal findings in specimens from other organs, systems and tissues R89.8 ; Other male erectile dysfunction N52.8 ; Body mass index (BMI) of 40.0-44.9 in adult Z68.41 and Morbid (severe) obesity due to excess calories E66.01 [place] [id number] [place] [address] 64558- 3314 02 Nov, 2016 Post-traumatic stress disorder, unspecified F43.10 ; Major depressive disorder, recurrent, moderate F33.1 and Problems related to release from long-term Z65.2 [facility] [id number] [place] [address] [id number] Oct, Dental examination Z01.20 [place] [id number] [place] [address] 00994- 8867 Oct, [place] [id number] [place] [address] 32437- 3797 Oct, Encounter for immunization Z23 [address] 20870- 5129 Oct, Chronic pain G89.29 ; Anxiety F41.9 ; Arrhythmia as indication for cardiac pacemaker replacement I49.9 and Glaucoma H40.9 [place] [id number] [place] [address] 78835- 2142 Oct, Anxiety F41.9 ; Post-traumatic stress disorder, chronic F43.12 and Problems related to release from long-term Z65.2 [place] [address] 98407- 3830 07 Oct, 2016 Post-traumatic stress disorder, unspecified F43.10 ; Major depressive disorder, recurrent, moderate F33.1 and Problems related to release from long-term Z65.2 [place] [address] 74894- 7362 30 Sep, 2016 Chronic pain G89.29 and Anxiety F41.9 [place] [address] 67175- 9325 Sep, Post-traumatic stress disorder, unspecified F43.10 ; Major depressive disorder, recurrent, moderate F33.1 and Problems related to release from long-term Z65.2 [place] [address] 38643- 5361 Sep, Post-traumatic stress disorder, unspecified F43.10 ; Major depressive disorder, recurrent, moderate F33.1 and Problems related to release from long-term Z65.2 [place] [address] 39984- 3938 Sep, Chronic pain G89.29 [place] [id number] [place] [address] 81915- 8475 Aug, Dental caries, unspecified K02.9 [place] [id number] [place] [address] 63715- 9376 Aug, Sleep apnea, obstructive G47.33 ; Obesity E66.9 ; Chronic pain G89.29 ; HTN (hypertension) I10 ; Major depressive disorder, recurrent, moderate F33.1 ; Anxiety F41.9 ; Chronic tension headaches G44.229 ; Mitral valve prolapse I34.1 ; Arrhythmia as indication for cardiac pacemaker replacement I49.9 ; Dental caries, unspecified K02.9 ; Primary insomnia F51.01 and Hyperlipidemia E78.5 [place] [id number] [place] [address] 62264- 2174 Aug, Post-traumatic stress disorder, unspecified F43.10 ; Major depressive disorder, recurrent, moderate F33.1 and Problems related to release from long-term Z65.2 [facility] [id number] [place] [address] 62512- 8538 Aug, Dental examination Z01.20 [facility] [address] [place] [address] [id number] Aug, Dental examination Z01.20 [facility] [id number] [place] [address] 04234- 8574 Aug, Post-traumatic stress disorder, unspecified F43.10 ; Major depressive disorder, recurrent, moderate F33.1 and Problems related to release from long-term Z65.2 [facility] [id number] [place] [address] 35031- 3453 Aug, Chronic pain G89.29 and Primary insomnia F51.01 [facility] [id number] [place] [address] 13737- 4040 Jul, [facility] [id number] [place] [address] 71372- 5242 Jul, [facility] [id number] [place] [address] 58895- 9714 Jul, Nausea R11.0 [facility] [id number] [place] [address] 00389- 0805 Jul, Arrhythmia as indication for cardiac pacemaker replacement I49.9 [facility] [id number] [place] [address] 33436- 6416 Jul, Post-traumatic stress disorder, unspecified F43.10 ; Major depressive disorder, recurrent, moderate F33.1 and Problems related to release from long-term Z65.2 [facility] [address] [place] [address] 75014- 4593 Jul, Anxiety F41.9 [facility] [id number] [place] [address] 71056- 8878 Jul, Chronic pain G89.29 [facility] [id number] [place] [address] 68988- 6515 Jul, Sleep apnea, obstructive G47.33 ; Hyperlipidemia E78.5 ; Chronic pain G89.29 ; Blindness and low vision H54.10 ; Major depressive disorder, recurrent, moderate F33.1 ; Anxiety F41.9 ; Mitral valve prolapse I34.1 ; Arrhythmia as indication for cardiac pacemaker replacement I49.9 ; Primary insomnia F51.01 ; Bilateral headaches R51 and Environmental allergies Z91.09 [place] [id number] [place] [address] 54451- 1047 Jul, Post-traumatic stress disorder, unspecified F43.10 ; Major depressive disorder, recurrent, moderate F33.1 and Problems related to release from long-term Z65.2 [place] [id number] [place] [address] 84058- 2786 June, Post-traumatic stress disorder, chronic F43.12 ; Anxiety F41.9 ; Problems related to release from long-term Z65.2 ; Sleep apnea, obstructive G47.33 and Primary insomnia F51.01 [place] [id number] [place] [address] 72323- 7523 June, [place] [id number] [place] [address] 31369- 6014 June, [place] [id number] [place] [address] 16613- 9249 June, [place] [id number] [place] [address] 66425- 2949 June, Chronic pain G89.29 [place] [id number] [place] [address] 28811- 5216 June, Chronic pain G89.29 [place] [id number] [place] [address] 55055- 7713 June, Lipoma of left lower extremity D17.24 ; Open wound T14.8 and Swelling of left lower extremity M79.89 [place] [id number] [place] [address] 77315- 4705 June, Post-traumatic stress disorder, unspecified F43.10 ; Major depressive disorder, recurrent, moderate F33.1 and Problems related to release from long-term Z65.2 [place] [id number] [place] [address] 82456- 7888 May, Lipoma of left lower extremity D17.24 ; Major depressive disorder, recurrent, moderate F33.1 ; Sleep apnea, obstructive G47.33 ; Hyperlipidemia E78.5 ; Obesity E66.9 ; HTN (hypertension) I10 ; Glaucoma H40.9 ; CAD (coronary artery disease) I25.10 ; Chronic tension headaches G44.229 ; Chronic pain G89.29 ; Anxiety F41.9 ; Nausea R11.0 and Primary insomnia F51.01 [place] [id number] [place] [address] 53167- 9270 May, [place] [id number] [place] [address] 69551- 6254 May, Chronic pain G89.29 [place] [id number] [place] [address] 63451- 8049 May, [place] [id number] [place] [address] 14712- 8478 Apr, Post-traumatic stress disorder, unspecified F43.10 ; Major depressive disorder, recurrent, moderate F33.1 and Problems related to release from long-term Z65.2 [place] [id number] [place] [address] 25606- 3575 Apr, Primary insomnia F51.01 ; Post-traumatic stress disorder, chronic F43.12 and Problems related to release from long-term Z65.2 [place] [address] [place] [address] 27125- 8504 Apr, Post-traumatic stress disorder, unspecified F43.10 ; Major depressive disorder, recurrent, moderate F33.1 and Problems related to release from long-term Z65.2 [place] [id number] [place] [address] 06944- 7217 16 Apr, 2016 [place] [id number] [place] [address] 29277- 4745 16 Apr, 2016 Sleep apnea, obstructive G47.33 ; Chronic pain G89.29 ; HTN (hypertension) I10 ; Mitral valve prolapse I34.1 ; Shoulder pain, left M25.512 ; Arrhythmia as indication for cardiac pacemaker replacement I49.9 ; Glaucoma H40.9 ; Bilateral headaches R51 ; Environmental allergies Z91.09 ; Primary insomnia F51.01 and Nausea R11.0 [place] [address] 06005- 7775 Apr, [place] [id number] [place] [address] 08246- 7604 Apr, [place] [address] 59405- 8254 Apr, Post-traumatic stress disorder, unspecified F43.10 ; Major depressive disorder, recurrent, moderate F33.1 and Problems related to release from long-term Z65.2 [place] [id number] [place] [address] 20748- 9712 07 Apr, 2016 HTN (hypertension) I10 [place] [id number] [place] [address] 60983- 8113 Apr, HTN (hypertension) I10 [place] [id number] [place] [address] 78266- 0493 14 Mar, 2016 Chronic pain G89.29 ; Primary insomnia F51.01 and Problems related to release from long-term Z65.2 [place] [id number] [place] [address] 14244- 8850 07 Mar, 2016 Post-traumatic stress disorder, unspecified F43.10 ; Major depressive disorder, recurrent, moderate F33.1 and Problems related to release from long-term Z65.2 [place] [address] [place] [address]- 1252 Feb, Post-traumatic stress disorder, unspecified F43.10 ; Major depressive disorder, recurrent, moderate F33.1 and Problems related to release from long-term Z65.2 [place] [id number] [place] [address] Feb, Chronic tension headaches G44.229 [place] [address] [address] Feb, Sleep apnea, obstructive G47.33 ; Obesity [...] pacemaker replacement I49.9 and Primary insomnia F51.01 [place] [address] [place] [id number] [place] [address] Feb, Post-traumatic stress disorder, unspecified F43.10 and Chronic pain G89.29 [place] [address] [place] [id number] [place] [address] Feb, [facility] [address] [id number] [place] [id number] Feb, Dental caries K02.9 [place] [address] [place] [id number] [place] [phone] Feb, [place] [address] [place] [id number] [place] [address] Feb, Post-traumatic stress disorder, unspecified F43.10 ; Major depressive disorder, recurrent, moderate F33.1 and Problems related to release from long-term Z65.2 [place] [address] [place] [id number] [place] [phone] Jan, Sleep apnea, obstructive G47.33 and Chronic pain G89.29 [place] [address], [place] [address] Jan, [place] [address] [place] [id number] [place] [address] 11494- 9013 Jan, Dental examination Z01.20 [place] [address], [place] [address] Jan, [place] [address] [place] [id number] [place] [address] 68351- 9689 Jan, [place] [id number] [place] [address] 64218- 4549 Dec, Post-traumatic stress disorder, unspecified F43.10 ; Major depressive disorder, recurrent, moderate F33.1 and Problems related to release from long-term Z65.2 [place] [id number] [place] [address] 18439- 0395 Dec, Encounter for immunization Z23 ; Problems related to release from long-term Z65.2 ; Sleep apnea, obstructive G47.33 and Post-traumatic stress disorder, chronic F43.[id number] [place] [address] 46203- 7409 18 Dec, 2015 Sleep apnea, obstructive G47.33 ; Hyperlipidemia E78.5 ; Chronic pain G89.29 ; Glaucoma H40.9 ; HTN (hypertension) I10 ; Post-traumatic stress disorder, unspecified F43.10 ; Anxiety F41.9 ; Chronic tension headaches G44.229 ; Mitral valve prolapse I34.1 and CAD (coronary artery disease) I25.10 [place] [id number] [address] 0[address] 15 Dec, 2015 Post-traumatic stress disorder, unspecified F43.10 ; Major depressive disorder, recurrent, moderate F33.1 and Problems related to release from long-term Z65.2 [place] [id number], [place] [address] 3544 Nov, Chronic pain G89.29 [address], [place] [address] 9859 Nov, Post-traumatic stress disorder, unspecified F43.10 ; Major depressive disorder, recurrent, moderate F33.1 and Problems related to release from long-term Z65.2 [place] [address], [place] [address] 4959 Oct, [place] [address] [place] [id number] [place] [address] 67660- 9476 Oct, [place] [address] [place] [id number] [place] [address] 38233- 0802 Oct, Post-traumatic stress disorder, unspecified F43.10 ; Major depressive disorder, recurrent, moderate F33.1 and Problems related to release from long-term Z65.2 [place] [address] [place] [id number] [place] [address] 77786- 0372 08 Oct, 2015 [place] [address] [place] [id number] [place] [address] 86462- 4312 07 Oct, 2015 Environmental allergies Z91.09 ; Cough R05 and Open-angle glaucoma of both eyes H40.10X0 [place] [address] [place] [id number] [place] [address] 16811- 7902 Sep, [place] [id number] [place] [address] 03682- 0586 Sep, Post-traumatic stress disorder, unspecified F43.10 ; Major depressive disorder, recurrent, moderate F33.1 and Problems related to release from long-term Z65.2 [place] [id number] [place] [address] 97324- 4950 Sep, Chronic pain G89.29 [place] [address] [place] [id number] [place] [address] 87567- 0233 Sep, Pain in left shoulder M25.512 ; Pain in right shoulder M25.511 and Other chronic pain G89.29 [place] [address] [place] [id number] [place] [address] 31614- 9403 Sep, [facility] [address] [address] Sep, [facility] [id number] [place] [address] 95100- 9057 Sep, [facility] [id number] [place] [address] [id number] Aug, Dental examination Z01.20 [facility] [id number] [place] [address] 23400- 7935 Aug, Post-traumatic stress disorder, unspecified F43.10 ; Open- angle glaucoma of both eyes H40.10X0 and Problems related to release from long-term Z65.2 [facility] [id number] [place] [address] 32122- 3801 Aug, [place] [address] [place] [address] [id number] [place] [address] 44022- 9268 Aug, Sleep apnea, obstructive G47.33 ; Obesity E66.9 ; Hyperlipidemia E78.5 ; Bilateral headaches R51 ; HTN (hypertension) I10 ; Post- traumatic stress disorder, unspecified F43.10 ; Anxiety F41.9 ; Neuropathy G62.9 ; Glaucoma H40.9 and Chronic pain G89.29 [facility] [address] [id number] Aug, Encounter for dental examination Z01.20 [facility] [id number] [place] [address] 93730- 9214 Aug, Post-traumatic stress disorder, unspecified F43.10 ; Major depressive disorder, recurrent, moderate F33.1 and Problems related to release from long-term Z65.2 [facility] [id number] [place] [address] 98165- 1181 Aug, [facility] [id number] [place] [address] 25602- 1238 Jul, [facility] [address] [place] [id number] [place] [address] 72106- 4851 Jul, Post-traumatic stress disorder, unspecified F43.10 and Major depressive disorder, recurrent, moderate F33.1 [facility] [address], [place] [address] 5200 Jul, [facility] [id number], [place] [address]- 79[address] Jul, [facility] [id number] [place] [address] 80770- 0060 Jul, Chronic pain G89.29 [facility] [id number] [place] [address] 48563- 4687 June, Post-traumatic stress disorder, unspecified F43.10 and Major depressive disorder, recurrent, moderate F33.1 [facility] [address], [place] [address] 7[address] June, [facility] [id number] [place] [address] 09488- 7343 June, Chronic pain G89.29 [facility] [address], [place] [address]- 0161 June, Post-traumatic stress disorder, unspecified F43.10 and Major depressive disorder, recurrent, moderate F33.1 [facility] [address], [place] [address]- 6301 May, Post-traumatic stress disorder, unspecified F43.10 and Major depressive disorder, recurrent, moderate F33.1 [facility] [address], [place] [address]- 5896 May, [facility] [address] [address] May, [facility] [id number] [address] 6275 May, [facility] [address], [place] [address]- 4624 Apr, [place] [id number] [place] [address] 16181- 7951 31 Apr, 2015 Post-traumatic stress disorder, unspecified F43.10 and Sleep apnea, obstructive G47.33 [facility] [id number] [place] [address] 37724- 3048 [address], [address] [facility] [id number] [place] [address] 66735- 8349 Apr, Shoulder pain, left M25.512 [facility] [id number] [place] [address] 69907- 3722 18 Apr, 2015 Post-traumatic stress disorder, unspecified F43.10 and Major depressive disorder, recurrent, moderate F33.1 [facility] [id number] [place] [address] 24697- 2636 17 Apr, 2015 [place] [address] [place] [id number] [place] [address] 96437- 1101 Apr, [facility] [address] [place] [id number] [place] [address] 66369- 5620 [address], [address] [facility] [address] [place] [id number] [place] [address] 49784- 3608 07 Apr, 2015 Left shoulder pain M25.512 [facility] [id number] [place] [address] 13546- 7548 Mar, [facility] [address] [id number] [place] [address] 56548- 8589 Mar, [facility] [address] [place] [id number] [place] [address] 48006- 9460 [address], [address] [facility] [address] [place] [id number] [place] [address] 63809- 1975 12 Mar, 2015 Sleep apnea, obstructive G47.33 ; Obesity E66.9 ; Chronic pain G89.29 ; Hyperlipidemia E78.5 ; HTN (hypertension) I10 ; Blindness and low vision H54.10 ; Major depressive disorder, recurrent, moderate F33.1 and Anxiety F41.9 [place] [address] [place] [id number] [place] [address] 43327- 2364 Mar, [place] [address] [place] [id number] [place] [address] 97755- 0618 Mar, Post-traumatic stress disorder, unspecified F43.10 and Major depressive disorder, recurrent, moderate F33.1 [place] [address] [place] [id number] [place] [address] 56223- 3086 08 Mar, 2015 [place] [address] [place] [id number] [place] [address] 25782- 2679 04 Mar, 2015 HTN (hypertension) I10 ; Blindness and low vision H54.10 ; Obesity E66.9 ; Hyperlipidemia E78.5 ; Glaucoma H40.9 ; Chronic pain G89.29 and CAD (coronary artery disease) I25.10 [place] [id number] [place] [address] 81413- 2605 Feb, [place] [address] [place] [id number] [place] [address] 83371- 5791 Feb, Post-traumatic stress disorder, unspecified F43.10 ; Obesity E66.9 ; Sleep apnea, obstructive G47.33 and Open-angle glaucoma of both eyes H40.10X0 [place] [id number] [place] [address] 32416- 3225 Feb, Post-traumatic stress disorder, unspecified F43.10 and Major depressive disorder, recurrent, moderate F33.1 [place] [id number] [place] [address] 03244- 4648 Feb, [place] [id number] [place] [address] 65409- 9954 Feb, [place] [address] [place] [id number] [place] [address] 96495- 2293 Feb, HTN (hypertension) I10 ; Post-traumatic stress disorder, unspecified F43.10 ; Blindness and low vision H54.10 ; Obesity E66.9 ; Hyperlipidemia E78.5 ; Chronic pain G89.29 ; Glaucoma H40.9 ; Mitral valve prolapse I34.1 and Bilateral headaches R51 [place] [address] [place] [id number] [place] [address] 79785- 1034 Feb, [place] [address] [place] [id number] [place] [address] 23695- 3012 Feb, Post-traumatic stress disorder, unspecified F43.10 and Major depressive disorder, recurrent, moderate F33.1 [place] [address] [place] [id number] [place] [address] 06824- 0599 Feb, [place] [address] 04751- 6311 Feb, [place] [address] 30752- 8797 Jan, [place] [address] 62453- 8962 Jan, [place] [address] [place] [id number] [place] [address] 46572- 9041 Jan, Obesity E66.9 ; HTN (hypertension) I10 ; Blindness and low vision H54.10 ; Major depressive disorder, recurrent, moderate F33.1 ; Glaucoma H40.9 ; Hyperlipidemia E78.5 ; Sleep apnea, obstructive G47.33 ; Chronic pain G89.29 ; Anxiety F41.9 ; Chronic tension headaches G44.229 and Cough R05 [place] [address] [place] [id number] [place] [address] 93440- 7898 Jan, [place] [address] [place] [id number] [place] [address] 06947- 0710 Jan, [place] [id number] [place] [address] 55627- 1927 Jan, Post-traumatic stress disorder, unspecified F43.10 ; Obesity E66.9 ; Sleep apnea, obstructive G47.33 and Open-angle glaucoma of both eyes H40.10X0 [place] [address] [place] [id number] [place] [address] 45765- 6480 Jan, [place] [address]- 5793 Jan, Post-traumatic stress disorder, unspecified F43.10 and Major depressive disorder, recurrent, moderate F33.[address] 35869- 1095 Dec, [place] [address] 15438- 0004 Dec, Sleep apnea, obstructive G47.33 ; Obesity E66.9 ; Hyperlipidemia E78.5 ; Glaucoma H40.9 ; Chronic pain G89.29 ; HTN (hypertension ) I10 ; Blindness and low vision H54.10 ; Anxiety F41.9 and CAD (coronary artery disease) I25.[address] 44469- 0918 Nov, [address] 65328- 9284 Nov, [address] 50166- 5205 Nov, [place] [id number] [place] [address] 01820- 1776 Nov, [address] 14960- 6178 Nov, [place] [id number] [place] [address] 39758- 0015 Nov, Encounter for immunization Z23 ; Sleep apnea, obstructive G47.33 ; Obesity E66.9 ; Hyperlipidemia E78.5 ; Glaucoma H40.9 ; Chronic pain G89.29 ; Anxiety F41.9 ; Chronic tension headaches G44.229 and HTN (hypertension ) I10 [address] 58001- 2776 Nov, [facility] [address], [place] [address]- 8129 14 Nov, 2014 [facility] [id number] [place] [address] 92010- 0087 06 Nov, [address] [facility] [address], [place] [address]- 1420 Nov, [facility] [id number] [place] [address] 73730- 4004 [address], [address] [facility] [address] [place] [id number] [place] [address] 51687- 5832 [address], [address] [facility] [address] [place] [id number] [place] [address] 29779- 7733 Oct, [facility] [id number] [place] [address] 06727- 8364 Oct, [facility] [id number] [place] [address] 25969- 4686 Oct, Dizziness 780.4 ; Essential hypertension 401.9 ; Obesity 278.00 ; Hyperlipidemia 272.4 ; Chronic pain 338.29 ; Glaucoma 365.[address] [facility] [address], [place] [address]- 9642 Oct, Essential hypertension 401.9 ; Hyperlipidemia 272.4 ; Glaucoma 365.9 ; Obesity 278.00 ; Chronic pain 338.29 and Allergy to insects V15.06 [facility] [address] [address]- 9663 Sep, [facility] [id number] [place] [address] 37516- 6734 Sep, [facility] [id number] [place] [address] 22085- 7088 Sep, [facility] [address], [place] [address]- 4908 Sep, [facility] [address] [place] [id number] [address]- 3617 Aug, Essential hypertension 401.9 ; Obesity 278.00 ; Hyperlipidemia 272.4 ; Glaucoma 365.9 ; Lipoma 214.9 ; Mitral valve prolapse 424.0 ; Angina at rest 413.9 ; Lymphedema 457.1 and Chronic pain 338.29 IMMUNIZATIONS No Known Immunizations SOCIAL HISTORY Never Assessed REASON FOR VISIT Cold symptoms Pt is on chemo meds, c/o sore throat, cough, nasal drainage all for 2-3 days, was recently around someone with same symptoms for 2 weeks. CHRISTIE Luke PLAN OF CARE Activity Details Follow Up prn Reason: VITAL SIGNS Height 67 in 2017-07-07 Weight 267.8 lbs 2017-07-07 Temperature 98.1 degrees Fahrenheit 2017-07-07 Heart Rate 88 bpm 2017-07-07 Respiratory Rate 20 2017-07-07 BMI 41.94 kg/m2 2017-07-07 Blood pressure systolic 146 mmHg 2017-07-07 Blood pressure diastolic 100 mmHg 2017-07-07 MEDICATIONS Medication Instructions Dosage Frequency Start Date End Date Duration Status EPINEPHrine HCl 0.3 mg as directed Oct, 30 days Active Cartia XT 300 MG Orally Once a day 1 capsule 24h 90 days Active Metoprolol Succinate ER 200 mg Orally Once a day 1 tablet 24h 90 days Active Nitrostat 0.4 MG Sublingual every 5 minutes x 3 PRN 1 tablet 30 days Active Xanax 1 MG Orally Twice a day for anxiety 1 tablet 30 days Active Timolol Hemihydrate 0.5 % Ophthalmic 2 times a day 1 drop into both eyes 12h 20 Dec, 2014 Active Gabapentin 300 MG TAKE ONE CAPSULE BY MOUTH TWICE DAILY 90 Not- Taking Zofran ODT 4 MG Orally every 8 hrs prn 1 tablet on the tongue and allow to dissolve 10 Not-Taking Topamax 100 MG TAKE ONE TABLET BY MOUTH TWICE DAILY 90 Active Oxycodone HCl 5 mg Orally Once a day 1 tablet 24h June, Not- Taking Atorvastatin Calcium 20 MG TAKE ONE TABLET BY MOUTH ONCE DAILY 90 Active Hydrocodone-Acetaminophen 7.5-325 MG Orally 4 times a day 1 tablet 6h June, Active RESULTS Name Result Date Reference Range STREP A (IN HOUSE) 2017-07-07 STREP A negative Control + Lot # [id number] Exp date 2018-01-07 PROCEDURES Procedure Date Ordered Result Body Site STREP A ASSAY W/OPTIC July 07, 2017 INSTRUCTIONS MEDICATIONS ADMINISTERED No Known [...]
--- OUTSIDE RECORDS SUMMARY | 2018-02-04 14:42 | XMS REPORT ---
Author Author ALENA ÁLVAREZ [facility] Address [address] [place] [address] Care Team Providers Care Dirt Bike Racer Name Role Phone ALENA ÁLVAREZ Unavailable PROBLEMS Type Condition ICD9-CM Code SXY14-OM Code Onset Dates Condition Status SNOMED Code Problem Hyperlipidemia E78.5 Active 35378571 Problem Arrhythmia as indication for cardiac pacemaker replacement I49.9 Active 91088654 Problem Sleep apnea, obstructive G47.33 Active 00076096 Problem Primary insomnia F51.01 Active 0546979 Problem Chronic pain G89.29 Active 08521572 Problem Morbid (severe) obesity due to excess calories E66.01 Active 263482330 Problem Body mass index (BMI) of 40.0-44.9 in adult Z68.41 Active 289105178 Problem Other male erectile dysfunction N52.8 Active 161718027 Problem Supraventricular tachycardia I47.1 Active 7834307 Problem Sarcoidosis D86.9 Active 44828892 Problem HTN (hypertension) I10 Active 09071512 Problem 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 Active 241678786 Problem Myocarditis, unspecified chronicity, 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 Active 36881975 Problem Migraine without aura and without status migrainosus, not intractable G43.009 Active 438715044 Problem 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 Active 663705285 Problem Problems related to release from chcf Z65.2 Active [id number] Problem Chronic pain syndrome G89.4 Active 688666278 Problem Major depressive disorder, recurrent, moderate F33.1 Active 64152842 Problem Open-angle glaucoma of both eyes H40.10X0 Active 28635824 Problem Chronic tension headaches G44.229 Active 020433386 Problem Anxiety F41.9 Active 28399017 Problem Post-traumatic stress disorder, chronic F43.12 Active 963118847 Problem Environmental allergies Z91.09 Active 811981322 Problem Mitral valve prolapse I34.1 Active 914011198 Problem CAD (coronary artery disease) I25.10 Active 92941322 ALLERGIES Substance Reaction Event Type Date Status Xalatan upper lid irritation Drug Allergy May, Active Penicillin G Potassium rash Drug Allergy May, Active Aspirin nausea and vomiting Drug Allergy May, Active bandaides blisters Non Drug Allergy May, Active Wasp venom anaphylaxis Non Drug Allergy May, Active ENCOUNTERS Encounter Location Date Diagnosis [facility] [id number] [place] [address] 98030- 4092 Oct, [facility] [id number] [place] [address] 57349- 2503 Oct, [facility] [address] 66759- 2517 Oct, [place] [address] 81477- 8446 Sep, [place] [address] 67936- 9466 Sep, Body mass index (BMI) of 40.0-44.9 in adult Z68.41 ; Chronic pain G89.29 and Supraventricular tachycardia I47.1 [place] [id number] [place] [address] 41181- 0210 Sep, [facility] [id number] [place] [address] 65811- 6787 Sep, Sarcoidosis D86.9 [facility] [id number] [place] [address] 39972- 3369 Sep, Sarcoidosis D86.9 [facility] [id number] [place] [address] 32770- 1454 Sep, [facility] [id number] [place] [address] 95232- 0701 Sep, [facility] [id number] [place] [address] 17204- 0644 Sep, [facility] [id number] [place] [address] 71990- 3884 Sep, [facility] [address] [address] 0056 Sep, Left leg pain M79.605 [facility] [address] [address] 4886 Sep, HTN (hypertension) I10 [facility] [address] [address] 2546 Sep, [facility] [address] [address] 2546 Sep, Post-traumatic stress disorder, unspecified F43.10 ; Major depressive disorder, recurrent, moderate F33.1 and Problems related to release from chcf Z65.2 [facility] [address] [address] 3[address] Sep, [facility] [address] [address]- 6866 Aug, [facility] [address] [address]- 5416 Aug, Sarcoidosis D86.9 [facility] [address] [address] 2546 Aug, Sarcoidosis D86.9 [facility] [id number] [address]- 0836 Aug, HTN (hypertension) I10 [facility] [address] [address]- 8080 Aug, Post-traumatic stress disorder, unspecified F43.10 ; Major depressive disorder, recurrent, moderate F33.1 and Problems related to release from chcf Z65.2 [facility] [address] [address] 0646 Aug, [facility] [id number] [address]- 0016 Aug, Left leg pain M79.605 [place] [id number] [place] [address] 60449- 9751 26 Jul, 2017 Post-traumatic stress disorder, chronic F43.12 ; Anxiety F41.9 ; Problems related to release from chcf Z65.2 and BMI 40.0-44.9, adult Z68.41 [place] [address] 86604- 4647 20 Jul, 2017 HTN (hypertension) I10 ; Body mass index (BMI) of 40.0-44.9 in adult Z68.41 and Acute swimmer''s ear of both sides H60.333 [place] [address] 88616- 6371 19 Jul, 2017 Glaucoma H40.9 [place] [address] 21526- 6436 14 Jul, 2017 [place] [address] 44195- 5792 13 Jul, 2017 Sarcoidosis D86.9 [place] [address] 51521- 4691 12 Jul, 2017 Left leg pain M79.605 [place] [address] 29401- 7886 12 Jul, 2017 Sarcoidosis D86.9 [place] [address] 13346- 9592 Jul, Post-traumatic stress disorder, unspecified F43.10 ; Major depressive disorder, recurrent, moderate F33.1 and Problems related to release from chcf Z65.2 [place] [address] 77336- 1358 June, [facility] [address] 41427 -1628 June, Sore throat J02.9 and BMI 40.0-44.9, adult Z68.41 [place] [address] [place] [address]- 2708 June, [facility] [id number] [place] [address] 63286- 9102 June, [facility] [id number] [place] [address] 71990- 5000 June, [facility] [id number] [place] [address] 59921- 5860 June, Left leg pain M79.605 [facility] [id number] [place] [address] 49612- 6815 June, Sarcoidosis D86.9 [facility] [id number] [place] [address] 69900- 9269 June, [facility] [id number] [place] [address] 74264- 8693 June, [facility] [id number] [place] [address] 71714- 7770 June, Left leg pain M79.605 [facility] [id number] [place] [address] 12962- 5229 May, [facility] [id number] [place] [address] 44922- 7849 May, [facility] [id number] [place] [address] 99186- 1763 May, [facility] [id number] [place] [address] 98594- 9272 May, Left leg pain M79.605 [facility] [id number] [place] [address] 66015- 6705 May, Post-traumatic stress disorder, unspecified F43.10 ; Major depressive disorder, recurrent, moderate F33.1 and Problems related to release from chcf Z65.2 [facility] [address] [address]- 7221 04 Apr, 2018 Chronic pain G89.29 ; Anxiety F41.9 ; Chest pain, unspecified type R07.9 and BMI 40.0-44.9, adult Z68.41 [place] [id number] [place] [address] 07516- 3596 30 Apr, 2017 [place] [id number] [place] [address] 02041- 6514 Apr, Left leg pain M79.605 [facility] [address] 90573- 6709 27 Apr, 2017 Post-traumatic stress disorder, unspecified F43.10 ; Problems related to release from chcf Z65.2 ; Anxiety F41.9 and BMI 40.0-44.9 , adult Z68.41 [place] [id number] [place] [address] 56410- 1116 Apr, [place] [address] 47262- 5657 19 Apr, 2017 Left leg pain M79.605 [place] [id number] [place] [address] 87670- 3708 13 Apr, 2017 Post-traumatic stress disorder, unspecified F43.10 ; Major depressive disorder, recurrent, moderate F33.1 and Problems related to release from chcf Z65.2 [place] [id number] [place] [address] 24853- 3515 Apr, [place] [id number] [place] [address] 82473- 0634 12 Apr, 2017 Chronic pain G89.29 ; 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 [id number] [place] [address] 86836- 1401 Apr, Left leg pain M79.605 [facility] [id number] [place] [address] [id number] Mar, Dental examination Z01.20 [facility] [id number] [place] [address] 83208- 1480 Mar, [facility] [address] 12440 -2353 Mar, Cough R05 ; Viral gastroenteritis A08.4 and BMI 40.0-44.9, adult Z68.41 [facility] [address] 01881- 2405 Mar, Left leg pain M79.605 [facility] [address] 01544- 4979 Mar, Post-traumatic stress disorder, unspecified F43.10 ; Major depressive disorder, recurrent, moderate F33.1 and Problems related to release from chcf Z65.2 [facility] [address] 06609- 5213 Feb, Left leg pain M79.605 [facility] [id number] [place] [address] 23460- 8399 Feb, [facility] [address] 51653- 7202 Feb, BMI 40.0-44.9, adult Z68.41 ; Chronic pain syndrome G89.4 ; Migraine without aura and without status migrainosus, not intractable G43.009 ; Mitral valve prolapse I34.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 [facility] [address] 93738- 0747 Feb, Post-traumatic stress disorder, chronic F43.12 ; Anxiety F41.9 ; Problems related to release from chcf Z65.2 and BMI 40.0-44.9, adult Z68.41 [facility] [id number] [place] [address] 42786- 7453 Feb, Post-traumatic stress disorder, unspecified F43.10 ; Major depressive disorder, recurrent, moderate F33.1 and Problems related to release from chcf Z65.2 [facility] [id number] [place] [address] 65928- 5897 Feb, Left leg pain M79.605 [facility] [id number] [place] [address] 453217- 0226 Jan, Post-traumatic stress disorder, unspecified F43.10 ; Major depressive disorder, recurrent, moderate F33.1 and Problems related to release from chcf Z65.2 [place] [id number] [place] [address] 33841- 7999 Jan, [place] [id number] [place] [address] 81491- 3551 Jan, [facility] [id number] [place] [address] 56556- 3586 Jan, Anxiety F41.9 [place] [id number] [place] [address] 962185- 9304 Jan, Left leg pain M79.605 [facility] [id number] [place] [address] 32634- 8957 Dec, Left leg pain M79.605 [facility] [id number] [place] [address] 60702- 5276 Dec, [facility] [id number] [place] [address] 69775- 6806 Dec, Post-traumatic stress disorder, unspecified F43.10 ; Major depressive disorder, recurrent, moderate F33.1 and Problems related to release from chcf Z65.2 [facility] [id number] [place] [address] 82180- 6115 Nov, Chronic pain G89.29 and Anxiety F41.9 [place] [id number] [place] [address] 85932- 7284 24 Nov, 2016 Chronic pain G89.29 and Anxiety F41.[address] 96558- 644 16 Nov, 2016 Post-traumatic stress disorder, unspecified F43.10 ; Major depressive disorder, recurrent, moderate F33.1 and Problems related to release from chcf Z65.[address] 91133- 0651 09 Nov, 2016 Other abnormal findings in specimens from other organs, systems and tissues R89.8 ; Other male erectile dysfunction N52.8 ; Body mass index (BMI) of 40.0-44.9 in adult Z68.41 and Morbid (severe) obesity due to excess calories E66.[address] 67599- 8908 02 Nov, 2016 Post-traumatic stress disorder, unspecified F43.10 ; Major depressive disorder, recurrent, moderate F33.1 and Problems related to release from chcf Z65.2 [facility] [address] [id number] Oct, Dental examination Z01.20 [place] [id number] [place] [address] 19794- 0890 Oct, [address] 23155- 7063 Oct, Encounter for immunization Z23 [address] 79763- 5440 Oct, Chronic pain G89.29 ; Anxiety F41.9 ; Arrhythmia as indication for cardiac pacemaker replacement I49.9 and Glaucoma H40.9 [place] [id number] [place] [address] 41584- 4302 Oct, Anxiety F41.9 ; Post-traumatic stress disorder, chronic F43.12 and Problems related to release from chcf Z65.2 [place] [address] [address]- 7327 07 Oct, 2016 Post-traumatic stress disorder, unspecified F43.10 ; Major depressive disorder, recurrent, moderate F33.1 and Problems related to release from chcf Z65.2 [place] [id number] [place] [address] 32177- 8367 Sep, Chronic pain G89.29 and Anxiety F41.9 [place] [id number] [place] [address] 10401- 9846 Sep, Post-traumatic stress disorder, unspecified F43.10 ; Major depressive disorder, recurrent, moderate F33.1 and Problems related to release from chcf Z65.2 [place] [id number] [place] [address] 54855- 8301 Sep, Post-traumatic stress disorder, unspecified F43.10 ; Major depressive disorder, recurrent, moderate F33.1 and Problems related to release from chcf Z65.2 [place] [id number] [place] [address] 31478- 4863 Sep, Chronic pain G89.29 [place] [id number] [place] [address] 79023- 3855 Aug, Dental caries, unspecified K02.[address] [place] [address] 23960- 2677 Aug, Sleep apnea, obstructive G47.33 ; Obesity E66.9 ; Chronic pain G89.29 ; HTN (hypertension) I10 ; Major depressive disorder, recurrent, moderate F33.1 ; Anxiety F41.9 ; Chronic tension headaches G44.229 ; Mitral valve prolapse I34.1 ; Arrhythmia as indication for cardiac pacemaker replacement I49.9 ; Dental caries, unspecified K02.9 ; Primary insomnia F51.01 and Hyperlipidemia E78.[address] [place] [address] 36928- 5858 Aug, Post-traumatic stress disorder, unspecified F43.10 ; Major depressive disorder, recurrent, moderate F33.1 and Problems related to release from chcf Z65.2 [facility] [address] [address]- 8216 20 Aug, 2016 Dental examination Z01.20 [facility] [id number] [address] 13 Aug, [address] [facility] [id number] [place] [address] 33507- 8192 06 Aug, 2016 Post-traumatic stress disorder, unspecified F43.10 ; Major depressive disorder, recurrent, moderate F33.1 and Problems related to release from chcf Z65.2 [facility] [id number] [place] [address] 33775- 3763 05 Aug, 2016 Chronic pain G89.29 and Primary insomnia F51.01 [facility] [id number] [place] [address] 52652- 2851 Jul, [facility] [id number] [place] [address] 77748- 1795 Jul, [facility] [id number] [place] [address] 62163- 4260 Jul, Nausea R11.0 [facility] [id number] [place] [address] 98416- 3272 Jul, Arrhythmia as indication for cardiac pacemaker replacement I49.9 [facility] [id number] [place] [address] 47717- 2703 Jul, Post-traumatic stress disorder, unspecified F43.10 ; Major depressive disorder, recurrent, moderate F33.1 and Problems related to release from chcf Z65.2 [facility] [id number] [place] [address] 74245- 6797 09 Jul, [address] [facility] [id number] [place] [address] 57678- 0821 08 Jul, [address] 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 ; Major depressive disorder, recurrent, moderate F33.1 ; Anxiety F41.9 ; Mitral valve prolapse I34.1 ; Arrhythmia as indication for cardiac pacemaker replacement I49.9 ; Primary insomnia F51.01 ; Bilateral headaches R51 and Environmental allergies Z91.09 [place] [address] 29267- 5175 Jul, Post-traumatic stress disorder, unspecified F43.10 ; Major depressive disorder, recurrent, moderate F33.1 and Problems related to release from chcf Z65.2 [place] [address] 78117- 2660 June, Post-traumatic stress disorder, chronic F43.12 ; Anxiety F41.9 ; Problems related to release from chcf Z65.2 ; Sleep apnea, obstructive G47.33 and Primary insomnia F51.01 [place] [id number] [place] [address] 12724- 9296 June, [place] [address] 50974- 8510 June, [place] [address] 34721- 4488 June, [place] [address] 73101- 1956 June, Chronic pain G89.29 [place] [address] 00158- 1097 June, Chronic pain G89.29 [place] [address] 52007- 3566 June, Lipoma of left lower extremity D17.24 ; Open wound T14.8 and Swelling of left lower extremity M79.89 [place] [address] 94701- 6908 June, Post-traumatic stress disorder, unspecified F43.10 ; Major depressive disorder, recurrent, moderate F33.1 and Problems related to release from chcf Z65.2 [place] [id number] [place] [address] 16002- 6724 May, Lipoma of left lower extremity D17.24 ; Major depressive disorder, recurrent, moderate F33.1 ; Sleep apnea, obstructive G47.33 ; Hyperlipidemia E78.5 ; Obesity E66.9 ; HTN (hypertension) I10 ; Glaucoma H40.9 ; CAD (coronary artery disease) I25.10 ; Chronic tension headaches G44.229 ; Chronic pain G89.29 ; Anxiety F41.9 ; Nausea R11.0 and Primary insomnia F51.01 [place] [id number] [place] [address] 14191- 5627 May, [address] 41318- 2604 May, Chronic pain G89.29 [place] [address] 41561- 0381 May, [place] [address] 65233- 5614 Apr, Post-traumatic stress disorder, unspecified F43.10 ; Major depressive disorder, recurrent, moderate F33.1 and Problems related to release from chcf Z65.2 [place] [id number] [place] [address] 30382- 3262 Apr, Primary insomnia F51.01 ; Post-traumatic stress disorder, chronic F43.12 and Problems related to release from chcf Z65.2 [place] [id number] [place] [address] 64462- 8172 17 Apr, 2016 Post-traumatic stress disorder, unspecified F43.10 ; Major depressive disorder, recurrent, moderate F33.1 and Problems related to release from chcf Z65.2 [id number] [place] [address] 40731- 6122 Apr, [facility] [id number] [place] [address] 11469- 4228 16 Apr, 2016 Sleep apnea, obstructive G47.33 ; Chronic pain G89.29 ; HTN (hypertension) I10 ; Mitral valve prolapse I34.1 ; Shoulder pain, left M25.512 ; Arrhythmia as indication for cardiac pacemaker replacement I49.9 ; Glaucoma H40.9 ; Bilateral headaches R51 ; Environmental allergies Z91.09 ; Primary insomnia F51.01 and Nausea R11.0 [place] [id number] [place] [address] 59429- 2922 Apr, [place] [id number] [place] [address] 52103- 5105 Apr, [place] [id number] [place] [address] 57600- 6161 Apr, Post-traumatic stress disorder, unspecified F43.10 ; Major depressive disorder, recurrent, moderate F33.1 and Problems related to release from chcf Z65.2 [place] [id number] [place] [address] 76482- 0248 Apr, HTN (hypertension) I10 [place] [id number] [place] [address] 91178- 0418 Apr, HTN (hypertension) I10 [place] [id number] [place] [address] 63175- 7733 14 Mar, 2016 Chronic pain G89.29 ; Primary insomnia F51.01 and Problems related to release from chcf Z65.2 [place] [address] [place] [address] 77790- 2744 07 Mar, 2016 Post-traumatic stress disorder, unspecified F43.10 ; Major depressive disorder, recurrent, moderate F33.1 and Problems related to release from chcf Z65.2 [place] [id number] [place] [address] 44979- 5855 Feb, Post-traumatic stress disorder, unspecified F43.10 ; Major depressive disorder, recurrent, moderate F33.1 and Problems related to release from chcf Z65.2 [facility] [id number] [place] [address] 23395- 6751 Feb, Chronic tension headaches G44.229 [facility] [address] [place] [id number] [place] [address] 56283- 0764 Feb, Sleep apnea, obstructive G47.33 ; Obesity [...] pacemaker replacement I49.9 and Primary insomnia F51.01 [place] [address] [place] [id number] [place] [address] 61339- 7648 Feb, Post-traumatic stress disorder, unspecified F43.10 and Chronic pain G89.29 [place] [id number] [place] [id number] [place] [address] 92090- [phone] Feb, [facility] [address] [place] [id number] [place] [address] [id number] Feb, Dental caries K02.9 [facility] [address] [place], [place] [id number] [place] [address] 27168- [phone] Feb, [place] [address] [place] [id number] [place] [address] [phone]- [phone] Feb, Post-traumatic stress disorder, unspecified F43.10 ; Major depressive disorder, recurrent, moderate F33.1 and Problems related to release from [facility] Z65.2 [place] [id number] [place] [address] 60464- 7085 Jan, Sleep apnea, obstructive G47.33 and Chronic pain G89.29 [facility] [id number] [place] [address] 14722- 3210 Jan, [place] [address] [address] 3[address] 14 Jan, 2016 Dental examination Z01.20 [place] [id number] [place] [address] 77501- 7491 09 Jan, 2016 [place] [id number] [place] [address] 83101- 7633 Jan, [place] [id number] [place] [address] 29430- 1740 Dec, Post-traumatic stress disorder, unspecified F43.10 ; Major depressive disorder, recurrent, moderate F33.1 and Problems related to release from chcf Z65.2 [place] [id number] [place] [address] 56252- 7586 Dec, Encounter for immunization Z23 ; Problems related to release from chcf Z65.2 ; Sleep apnea, obstructive G47.33 and Post-traumatic stress disorder, chronic F43.[id number] [place] [address] 52751- 0470 Dec, Sleep apnea, obstructive G47.33 ; Hyperlipidemia E78.5 ; Chronic pain G89.29 ; Glaucoma H40.9 ; HTN (hypertension) I10 ; Post-traumatic stress disorder, unspecified F43.10 ; Anxiety F41.9 ; Chronic tension headaches G44.229 ; Mitral valve prolapse I34.1 and CAD (coronary artery disease) I25.10 [place] [id number] [place] [address] 50965- 6407 Dec, Post-traumatic stress disorder, unspecified F43.10 ; Major depressive disorder, recurrent, moderate F33.1 and Problems related to release from chcf Z65.2 [address] [place] [address] 30003- 8888 Nov, Chronic pain G89.29 [address] [address] 1365 Nov, Post-traumatic stress disorder, unspecified F43.10 ; Major depressive disorder, recurrent, moderate F33.1 and Problems related to release from chcf Z65.2 [place] [id number] [place] [address] 83646- 5967 Oct, [facility] [id number] [place] [address] 92063- 4627 Oct, [place] [id number] [place] [address] 22760- 8431 Oct, Post-traumatic stress disorder, unspecified F43.10 ; Major depressive disorder, recurrent, moderate F33.1 and Problems related to release from chcf Z65.2 [place] [id number] [place] [address] 18721- 2673 Oct, [place] [id number] [place] [address] 92271- 7464 Oct, Environmental allergies Z91.09 ; Cough R05 and Open-angle glaucoma of both eyes H40.10X0 [place] [id number] [place] [address] 93445- 6105 Sep, [place] [id number] [place] [address] 03978- 5713 Sep, Post-traumatic stress disorder, unspecified F43.10 ; Major depressive disorder, recurrent, moderate F33.1 and Problems related to release from chcf Z65.2 [place] [id number] [place] [address] 52904- 6274 Sep, Chronic pain G89.29 [place] [id number] [place] [address] 11430- 9715 Sep, Pain in left shoulder M25.512 ; Pain in right shoulder M25.511 and Other chronic pain G89.29 [place] [id number] [place] [address] 65311- 0451 Sep, [place] [id number] [place] [address] 77857- 9545 Sep, [facility] [address] [address] 8316 Sep, [facility] [id number] [place] [address] [id number] Aug, Dental examination Z01.20 [facility] [id number] [place] [address] 37860- 9754 Aug, Post-traumatic stress disorder, unspecified F43.10 ; Open- angle glaucoma of both eyes H40.10X0 and Problems related to release from chcf Z65.2 [facility] [address] [address] 7043 Aug, [facility] [id number] [place] [address] 55739- 0179 Aug, Sleep apnea, obstructive G47.33 ; Obesity E66.9 ; Hyperlipidemia E78.5 ; Bilateral headaches R51 ; HTN (hypertension) I10 ; Post- traumatic stress disorder, unspecified F43.10 ; Anxiety F41.9 ; Neuropathy G62.9 ; Glaucoma H40.9 and Chronic pain G89.29 [facility] [id number] [place] [address] [id number] Aug, Encounter for dental examination Z01.20 [facility] [id number] [place] [address] 05545- 5593 Aug, Post-traumatic stress disorder, unspecified F43.10 ; Major depressive disorder, recurrent, moderate F33.1 and Problems related to release from chcf Z65.2 [facility] [address] [address] 9750 Aug, [facility] [id number] [place] [address] 08509- 7417 Jul, [facility] [address] [address]- 7322 Jul, Post-traumatic stress disorder, unspecified F43.10 and Major depressive disorder, recurrent, moderate F33.1 [place] [address] [address] 9298 Jul, [facility] [address] [address]- 2704 Jul, [facility] [address] [address]- 0637 Jul, Chronic pain G89.29 [facility] [id number] [place] [address] 15663- 2719 June, Post-traumatic stress disorder, unspecified F43.10 and Major depressive disorder, recurrent, moderate F33.1 [facility] [address] [address]- 5894 June, [facility] [id number] [place] [address] 61799- 2514 June, Chronic pain G89.29 [facility] [id number] [place] [address] 12222- 7814 June, Post-traumatic stress disorder, unspecified F43.10 and Major depressive disorder, recurrent, moderate F33.1 [facility] [address] [address]- 9004 May, Post-traumatic stress disorder, unspecified F43.10 and Major depressive disorder, recurrent, moderate F33.1 [facility] [address] [address]- 1528 May, [facility] [address] [address] 4403 May, [facility] [address] [address] 8295 May, [facility] [address] 8587 Apr, [facility] [address] [address]- 1756 Apr, Post-traumatic stress disorder, unspecified F43.10 and Sleep apnea, obstructive G47.33 [facility] [id number] [place] [address] 89451- 7170 31 Apr, 2015 [facility] [id number] [place] [address] 6737 Apr, Shoulder pain, left M25.512 [facility] [address] 06123- 9970 18 Apr, 2015 Post-traumatic stress disorder, unspecified F43.10 and Major depressive disorder, recurrent, moderate F33.1 [facility] [id number] [place] [address] 83864- 8098 17 Apr, 2015 [facility] [id number] [place] [address] 41415- 4036 11 Apr, 2015 [facility] [address] 75656- 5994 08 Apr, 2015 [facility] [id number] [place] [address] 46218- 9987 07 Apr, 2015 Left shoulder pain M25.512 [facility] [id number] [place] [address] 28016- 7730 Mar, [facility] [id number] [place] [address] 69838- 7124 Mar, [facility] [id number] [place] [address] 06184- 3225 18 Mar, 2015 [facility] [id number] [place] [address] 99250- 4701 12 Mar, 2015 Sleep apnea, obstructive G47.33 ; Obesity E66.9 ; Chronic pain G89.29 ; Hyperlipidemia E78.5 ; HTN (hypertension) I10 ; Blindness and low vision H54.10 ; Major depressive disorder, recurrent, moderate F33.[address] [facility] [id number] [place] [address] 53276- 7814 Mar, [place] [id number] [place] [address] 38986- 6387 Mar, Post-traumatic stress disorder, unspecified F43.10 and Major depressive disorder, recurrent, moderate F33.1 [place] [id number] [place] [address] 32361- 2439 08 Mar, [address] 159175- 0610 Mar, HTN (hypertension) I10 ; Blindness and low vision H54.10 ; Obesity E66.9 ; Hyperlipidemia E78.5 ; Glaucoma H40.9 ; Chronic pain G89.29 and CAD (coronary artery disease) I25.10 [place] [id number] [place] [address] 73251- 9456 Feb, [address] 936019- 1971 Feb, Post-traumatic stress disorder, unspecified F43.10 ; Obesity E66.9 ; Sleep apnea, obstructive G47.33 and Open-angle glaucoma of both eyes H40.10X0 [place] [id number] [place] [address] 58424- 9441 Feb, Post-traumatic stress disorder, unspecified F43.10 and Major depressive disorder, recurrent, moderate F33.1 [place] [id number] [place] [address] 75579- 2942 Feb, [place] [id number] [place] [address] 54033- 3531 Feb, [address] 37042- 7161 Feb, HTN (hypertension) I10 ; Post-traumatic stress disorder, unspecified F43.10 ; Blindness and low vision H54.10 ; Obesity E66.9 ; Hyperlipidemia E78.5 ; Chronic pain G89.29 ; Glaucoma H40.9 ; Mitral valve prolapse I34.1 and Bilateral headaches R51 [place] [id number] [place] [address] 08039- 8434 Feb, [facility] [id number] [place] [address] 63872- 4189 Feb, Post-traumatic stress disorder, unspecified F43.10 and Major depressive disorder, recurrent, moderate F33.1 [place] [id number] [place] [address] 44073- 4075 Feb, [facility] [id number] [place] [address] 52017- 8807 Feb, [place] [id number] [place] [address] 58779- 0426 Jan, [place] [id number] [place] [address] 50819- 6223 Jan, [place] [id number] [place] [address] 96083- 8075 Jan, Obesity E66.9 ; HTN (hypertension) I10 ; Blindness and low vision H54.10 ; Major depressive disorder, recurrent, moderate F33.1 ; Glaucoma H40.9 ; Hyperlipidemia E78.5 ; Sleep apnea, obstructive G47.33 ; Chronic pain G89.29 ; Anxiety F41.9 ; Chronic tension headaches G44.229 and Cough R05 [place] [id number] [place] [address] 01545- 9382 Jan, [place] [id number] [place] [address] 48420- 5192 Jan, [place] [id number] [place] [address] 73123- 8455 Jan, Post-traumatic stress disorder, unspecified F43.10 ; Obesity E66.9 ; Sleep apnea, obstructive G47.33 and Open-angle glaucoma of both eyes H40.10X0 [place] [id number] [place] [address] 48275- 9676 Jan, [place] [id number] [place] [address] 74415- 6424 Jan, Post-traumatic stress disorder, unspecified F43.10 and Major depressive disorder, recurrent, moderate F33.1 [facility] [id number] [place] [address] 54136- 7593 Dec, [address] 988493- 6075 Dec, Sleep apnea, obstructive G47.33 ; Obesity E66.9 ; Hyperlipidemia E78.5 ; Glaucoma H40.9 ; Chronic pain G89.29 ; HTN (hypertension ) I10 ; Blindness and low vision H54.10 ; Anxiety F41.9 and CAD (coronary artery disease) I25.[address] 52961- 4111 Nov, [address] 48721- 9010 Nov, [place] [id number] [place] [address] 48980- 5120 Nov, [address] 18597- 9795 Nov, [place] [id number] [place] [address] 33258- 5616 Nov, [address] 32642- 4791 Nov, Encounter for immunization Z23 ; Sleep apnea, obstructive G47.33 ; Obesity E66.9 ; Hyperlipidemia E78.5 ; Glaucoma H40.9 ; Chronic pain G89.29 ; Anxiety F41.9 ; Chronic tension headaches G44.229 and HTN (hypertension ) I10 [facility] [address] [place] [id number] [place] [address] 76539- 9454 Nov, [facility] [address] [place] [address] 30452- 1564 Nov, [facility] [address] [address]- 5457 06 Nov, [address] [facility] [id number] [place] [address] 11268- 2920 Nov, [facility] [address] [address]- 4331 29 Oct, 2014 [facility] [id number] [place] [address] 64063- 6718 Oct, [facility] [id number] [place] [address] 45101- 1697 Oct, [facility] [id number] [place] [address] 59604- 5752 Oct, [facility] [id number] [place] [address] 55745- 9064 Oct, Dizziness 780.4 ; Essential hypertension 401.9 ; Obesity 278.00 ; Hyperlipidemia 272.4 ; Chronic pain 338.29 ; Glaucoma 365.[address] [facility] [id number] [place] [address] 67523- 0039 Oct, Essential hypertension 401.9 ; Hyperlipidemia 272.4 ; Glaucoma 365.9 ; Obesity 278.00 ; Chronic pain 338.29 and Allergy to insects V15.06 [facility] [address] [address]- 1614 Sep, [facility] [address] [address]- 4674 Sep, [facility] [address] [address]- 6354 Sep, [facility] [id number] [place] [address] 25912- 9229 Sep, [facility] [address] [address]- 4806 Aug, Essential hypertension 401.9 ; Obesity 278.00 ; Hyperlipidemia 272.4 ; Glaucoma 365.9 ; Lipoma 214.9 ; Mitral valve prolapse 424.0 ; Angina at rest 413.9 ; Lymphedema 457.1 and Chronic pain 338.29 IMMUNIZATIONS No Known Immunizations SOCIAL HISTORY Never Assessed REASON FOR VISIT Pain management (chronic) -- duran zaidi, patient states he went to ER in [place] last week because he was having chest pain PLAN OF CARE Activity Details Follow Up 3 Months with Gerhard for pain management Reason: VITAL SIGNS Height 67 in 2017-05-12 Weight 273.0 lbs 2017-05-12 Temperature 98.0 degrees Fahrenheit 2017-05-12 Heart Rate 78 bpm 2017-05-12 Respiratory Rate 22 2017-05-12 BMI 42.75 kg/m2 2017-05-12 Blood pressure systolic 142 mmHg 2017-05-12 Blood pressure diastolic 86 mmHg 2017-05-12 MEDICATIONS Medication Instructions Dosage Frequency Start Date End Date Duration Status Zofran ODT 4 MG Orally every 8 hrs prn 1 tablet on the tongue and allow to dissolve 10 Not-Taking Nitrostat 0.4 MG Sublingual every 5 minutes x 3 PRN 1 tablet 30 days Active Metoprolol Succinate ER 200 mg Orally Once a day 1 tablet 24h 90 days Active Xanax 1 MG Orally Twice a day for anxiety 1 tablet Active Gabapentin 300 MG TAKE ONE CAPSULE BY MOUTH TWICE DAILY 90 Active Oxycodone HCl 10 mg 1 tablet every am and 1/2 tablet in the pm Apr, Active Timolol Hemihydrate 0.5 % Ophthalmic 2 times a day 1 drop into both eyes 12h Dec, Active Cartia XT 300 MG Orally Once a day 1 capsule 24h 90 days Active Topamax 100 MG TAKE ONE TABLET BY MOUTH TWICE DAILY 90 Active EPINEPHrine HCl 0.3 mg as directed Oct, 30 days Active Hydrocodone-Acetaminophen 7.5-325 MG Orally 4 times a day 1 tablet 6h Apr, 28 days Active Atorvastatin Calcium 20 MG TAKE ONE TABLET BY MOUTH ONCE DAILY 90 Active RESULTS No Results PROCEDURES Procedure Date Ordered Result Body Site DRUG TEST PRSMV CHEM ANLYZR May 12, 2017 INSTRUCTIONS MEDICATIONS ADMINISTERED No Known [...]
--- OUTSIDE RECORDS SUMMARY | 2018-02-04 14:43 | XMS REPORT ---
Author Author ALENA ÁLVAREZ Organization [facility] Address [address] [place] [address] Care Team Providers Care Title Abstractor Name Role Phone ALENA ÁLVAREZ Unavailable PROBLEMS Type Condition ICD9-CM Code WOD42-RH Code Onset Dates Condition Status SNOMED Code Problem Primary insomnia F51.01 Active 7175255 Problem Other male erectile dysfunction N52.8 Active 519329266 Problem Morbid (severe) obesity due to excess calories E66.01 Active 435575693 Problem Sarcoidosis D86.9 Active 70446878 Problem Blindness and low vision H54.10 Active 767874881 Problem Problems related to release from residential Z65.2 Active 898579947436676 Problem Myocarditis, unspecified chronicity, 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 Active 36216031 Problem Chronic pain G89.29 Active 47321550 Problem 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 Active 071449793 Problem Body mass index (BMI) of 40.0-44.9 in adult Z68.41 Active 766535741 Problem Chronic pain syndrome G89.4 Active 817503998 Problem Migraine without aura and without status migrainosus, not intractable G43.009 Active 810840289 Problem Anxiety F41.9 Active 99118886 Problem Major depressive disorder, recurrent, moderate F33.1 Active 48345846 Problem HTN (hypertension) I10 Active 10423743 Problem Chronic tension headaches G44.229 Active 623423525 Problem CAD (coronary artery disease) I25.10 Active 49498829 Problem Post-traumatic stress disorder, chronic F43.12 Active 011331900 Problem Hyperlipidemia E78.5 Active 00749678 Problem Open-angle glaucoma of both eyes H40.10X0 Active 68086551 Problem Environmental allergies Z91.09 Active 393983846 Problem Sleep apnea, obstructive G47.33 Active 76602271 Problem Mitral valve prolapse I34.1 Active 443782610 Problem Arrhythmia as indication for cardiac pacemaker replacement I49.9 Active 35742184 ALLERGIES No Information ENCOUNTERS Encounter Location Date Diagnosis [facility] [address] [place] [place] [address] Oct, [facility] [id number] [place] [address], [place] [address] Oct, [facility] [address] [place] [place] [address] Oct, [facility] [id number] [place] [address], [place] [address]- [address] Sep, [facility] [id number] [place] [address], [place] [address]- 0675 Sep, [facility] [id number] [place] [address], [place] [address]- 4[address] Sep, Sarcoidosis D86.9 [facility] [id number] [place] [address] 44509- 1857 Sep, Sarcoidosis D86.9 [facility] [id number] [place] [address] 40284- 1037 Sep, [facility] [id number] [place] [address] 54673- 7030 Sep, [facility] [address], [place] [address] Sep, [facility] [address], [place] [address] Sep, [facility] [address] [address] 0[address] Sep, Left leg pain M79.605 [facility] [id number] [place] [address] 71804- 5221 Sep, HTN (hypertension) I10 [facility] [address], [place] [address] 6[address] Sep, [facility] [id number] [place] [address] 15240- 5955 Sep, Post-traumatic stress disorder, unspecified F43.10 ; Major depressive disorder, recurrent, moderate F33.1 and Problems related to release from residential Z65.2 [place] [id number] [place] [address] 54618- 9605 Sep, [place] [id number] [place] [address] 89038- 0107 Aug, [place] [id number] [place] [address] 875819- 7059 Aug, Sarcoidosis D86.9 [place] [address] 95646- 8771 Aug, Sarcoidosis D86.9 [place] [id number] [place] [address] 22690- 0476 Aug, HTN (hypertension) I10 [place] [address] 65296- 2590 Aug, Post-traumatic stress disorder, unspecified F43.10 ; Major depressive disorder, recurrent, moderate F33.1 and Problems related to release from residential Z65.2 [place] [id number] [place] [address] 02982- 4363 Aug, [place] [id number] [place] [address] 23845- 7524 Aug, Left leg pain M79.605 [place] [id number] [place] [address] 71998- 8550 Jul, Post-traumatic stress disorder, chronic F43.12 ; Anxiety F41.9 ; Problems related to release from residential Z65.2 and BMI 40.0-44.9, adult Z68.41 [place] [id number] [place] [address] 85664- 5934 Jul, HTN (hypertension) I10 ; Body mass index (BMI) of 40.0-44.9 in adult Z68.41 and Acute swimmer''s ear of both sides H60.333 [facility] [id number] [place] [address] 10063- 7699 19 Jul, 2017 Glaucoma H40.9 [facility] [id number] [place] [address] 92529- 1126 Jul, [facility] [id number] [place] [address] 78030- 8304 13 Jul, 2017 Sarcoidosis D86.9 [facility] [id number] [place] [address] 43327- 4241 Jul, Left leg pain M79.605 [facility] [address] 82451- 7946 Jul, Sarcoidosis D86.9 [facility] [id number] [place] [address] 67144- 2117 Jul, Post-traumatic stress disorder, unspecified F43.10 ; Major depressive disorder, recurrent, moderate F33.1 and Problems related to release from residential Z65.2 [facility] [id number] [place] [address] 05746- 7658 June, [facility] [id number] [place] [address] 26587 -4150 June, Sore throat J02.9 and BMI 40.0-44.9, adult Z68.41 [facility] [id number] [place] [address] 00287- 4370 June, [facility] [id number] [place] [address] 17223- 7595 June, [facility] [id number] [place] [address] 31312- 3845 June, [facility] [id number] [place] [address] 54022- 0245 June, Left leg pain M79.605 [facility] [id number] [place] [address] 37061- 4014 June, Sarcoidosis D86.9 [facility] [address], [place] [address]- 1462 June, [facility] [id number] [place] [address] 732869- 1252 June, [facility] [id number] [place] [address] 73949- 1719 June, Left leg pain M79.605 [facility] [id number] [place] [address] 67611- 2299 May, [facility] [id number] [place] [address] 49788- 0150 May, [facility] [id number] [place] [address] 34301- 6324 May, [facility] [id number] [place] [address] 68281- 1604 May, Left leg pain M79.605 [facility] [id number] [place] [address] 16811- 5022 May, Post-traumatic stress disorder, unspecified F43.10 ; Major depressive disorder, recurrent, moderate F33.1 and Problems related to release from residential Z65.2 [facility] [id number] [place] [address] 60783- 8351 May, Chronic pain G89.29 ; Anxiety F41.9 ; Chest pain, unspecified type R07.9 and BMI 40.0-44.9, adult Z68.41 [facility] [address], [place] [address] 5[address] Apr, [facility] [id number] [place] [address] 72843- 4521 Apr, Left leg pain M79.605 [facility] [id number] [place] [address] 35288- 7666 27 Mar, 2018 Post-traumatic stress disorder, unspecified F43.10 ; Problems related to release from residential Z65.2 ; Anxiety F41.9 and BMI 40.0-44.9 , adult Z68.41 [place] [address] 58547- 6318 22 Apr, 2017 [place] [address] 98257- 7420 19 Apr, 2017 Left leg pain M79.605 [place] [address] 16245- 3106 13 Apr, 2017 Post-traumatic stress disorder, unspecified F43.10 ; Major depressive disorder, recurrent, moderate F33.1 and Problems related to release from residential Z65.2 [place] [address] 85443- 4710 12 Apr, [address] 7[address]80- 5590 12 Apr, 2017 Chronic pain G89.29 ; 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 ; Morbid (severe) obesity due to excess calories E66.01 ; Anxiety F41.9 and BMI 40.0-44.9, adult Z68.41 [facility] [address] [address] -[address]65 10 Apr, 2017 Sore throat J02.9 and BMI 40.0-44.9, adult Z68.[address] 36982- 8646 02 Apr, 2017 Left leg pain M79.605 [facility] [address] [id number] Mar, Dental examination Z01.[address] 00515- 4477 Mar, [facility] [address] 91280 -1718 Mar, Cough R05 ; Viral gastroenteritis A08.4 and BMI 40.0-44.9, adult Z68.41 [place] [id number] [place] [address] 26963- 7530 Mar, Left leg pain M79.605 [place] [id number] [place] [address] 06374- 6762 Mar, Post-traumatic stress disorder, unspecified F43.10 ; Major depressive disorder, recurrent, moderate F33.1 and Problems related to release from residential Z65.2 [place] [id number] [place] [address] 40249- 0276 Feb, Left leg pain M79.605 [place] [id number] [place] [address] 45296- 3704 Feb, [place] [address] 20963- 5752 Feb, BMI 40.0-44.9, adult Z68.41 ; Chronic pain syndrome G89.4 ; Migraine without aura and without status migrainosus, not intractable G43.009 ; Mitral valve prolapse I34.1 and 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 [place] [id number] [place] [address] 41094- 8781 Feb, Post-traumatic stress disorder, chronic F43.12 ; Anxiety F41.9 ; Problems related to release from residential Z65.2 and BMI 40.0-44.9, adult Z68.41 [place] [id number] [place] [address] 06246- 4908 Feb, Post-traumatic stress disorder, unspecified F43.10 ; Major depressive disorder, recurrent, moderate F33.1 and Problems related to release from residential Z65.2 [place] [id number] [place] [address] 77438- 7646 Feb, Left leg pain M79.605 [place] [id number] [place] [address] 54817- 7242 Jan, Post-traumatic stress disorder, unspecified F43.10 ; Major depressive disorder, recurrent, moderate F33.1 and Problems related to release from residential Z65.2 [facility] [id number] [place] [address] 67213- 0580 Jan, [facility] [id number] [place] [address] 77677- 8964 Jan, [facility] [id number] [place] [address] 41280- 5050 Jan, Anxiety F41.9 [facility] [id number] [place] [address] 49579- 3114 Jan, Left leg pain M79.605 [place] [id number] [place] [address]- 2559 Dec, Left leg pain M79.605 [place] [id number] [place] [address] 14810- 3936 Dec, [facility] [id number] [place] [address] 51732- 8534 Dec, Post-traumatic stress disorder, unspecified F43.10 ; Major depressive disorder, recurrent, moderate F33.1 and Problems related to release from residential Z65.2 [facility] [id number] [place] [address] 25066- 4950 31 Nov, 2016 Chronic pain G89.29 and Anxiety F41.9 [facility] [id number] [place] [address] 03572- 7026 24 Nov, 2016 Chronic pain G89.29 and Anxiety F41.9 [facility] [address] [place] [address] 13029- 2524 16 Nov, 2016 Post-traumatic stress disorder, unspecified F43.10 ; Major depressive disorder, recurrent, moderate F33.1 and Problems related to release from residential Z65.2 [place] [id number] [place] [address] 93375- 8196 09 Oct, 2017 Other abnormal findings in specimens from other organs, systems and tissues R89.8 ; Other male erectile dysfunction N52.8 ; Body mass index (BMI) of 40.0-44.9 in adult Z68.41 and Morbid (severe) obesity due to excess calories E66.01 [facility] [address] [place] [address] 56995- 4420 02 Nov, 2016 Post-traumatic stress disorder, unspecified F43.10 ; Major depressive disorder, recurrent, moderate F33.1 and Problems related to release from residential Z65.2 [facility] [id number] [place] [address] [id number] 29 Oct, 2016 Dental examination Z01.20 [place] [address] 57338- 0171 28 Oct, 2016 [place] [address] 57508- 0839 Oct, Encounter for immunization Z23 [address] 02030- 9265 Oct, Chronic pain G89.29 ; Anxiety F41.9 ; Arrhythmia as indication for cardiac pacemaker replacement I49.9 and Glaucoma H40.9 [place] [id number] [place] [address] 63618- 5948 Oct, Anxiety F41.9 ; Post-traumatic stress disorder, chronic F43.12 and Problems related to release from residential Z65.2 [place] [id number] [place] [address] 02928- 9998 Oct, Post-traumatic stress disorder, unspecified F43.10 ; Major depressive disorder, recurrent, moderate F33.1 and Problems related to release from residential Z65.2 [place] [id number] [place] [address] 81485- 7328 Sep, Chronic pain G89.29 and Anxiety F41.9 [place] [id number] [place] [address] 76278- 4777 Sep, Post-traumatic stress disorder, unspecified F43.10 ; Major depressive disorder, recurrent, moderate F33.1 and Problems related to release from residential Z65.2 [place] [id number] [place] [address] 30437- 3259 Sep, Post-traumatic stress disorder, unspecified F43.10 ; Major depressive disorder, recurrent, moderate F33.1 and Problems related to release from residential Z65.2 [place] [id number] [place] [address] 48087- 3531 04 Sep, 2016 Chronic pain G89.29 [place] [id number] [place] [address] 18622- 8401 Aug, Dental caries, unspecified K02.9 [place] [id number] [place] [address] 00904- 7148 Aug, Sleep apnea, obstructive G47.33 ; Obesity E66.9 ; Chronic pain G89.29 ; HTN (hypertension) I10 ; Major depressive disorder, recurrent, moderate F33.1 ; Anxiety F41.9 ; Chronic tension headaches G44.229 ; Mitral valve prolapse I34.1 ; Arrhythmia as indication for cardiac pacemaker replacement I49.9 ; Dental caries, unspecified K02.9 ; Primary insomnia F51.01 and Hyperlipidemia E78.5 [place] [address] [place] [address] 73956- 8824 Aug, Post-traumatic stress disorder, unspecified F43.10 ; Major depressive disorder, recurrent, moderate F33.1 and Problems related to release from residential Z65.2 [facility] [address] [place] [address] 89955- 3034 Aug, Dental examination Z01.20 [facility] [id number] [place] [address] [id number] Aug, Dental examination Z01.20 [facility] [id number] [place] [address] 81707- 5104 Aug, Post-traumatic stress disorder, unspecified F43.10 ; Major depressive disorder, recurrent, moderate F33.1 and Problems related to release from residential Z65.2 [place] [id number] [place] [address] 02779- 6491 Aug, Chronic pain G89.29 and Primary insomnia F51.01 [place] [id number] [place] [address] 53874- 3730 Jul, [place] [id number] [place] [address] 44818- 8143 Jul, [place] [id number] [place] [address] 83809- 4815 Jul, Nausea R11.0 [place] [address] 56460- 3829 Jul, Arrhythmia as indication for cardiac pacemaker replacement I49.9 [place] [id number] [place] [address] 31162- 9373 Jul, Post-traumatic stress disorder, unspecified F43.10 ; Major depressive disorder, recurrent, moderate F33.1 and Problems related to release from residential Z65.2 [place] [id number] [place] [address] 31515- 7496 09 Jul, 2016 Anxiety F41.9 [place] [id number] [place] [address] 70806- 4831 08 Jul, 2016 Chronic pain G89.29 [place] [id number] [place] [address] 10577- 3454 02 Jul, 2016 Sleep apnea, obstructive G47.33 ; Hyperlipidemia E78.5 ; Chronic pain G89.29 ; Blindness and low vision H54.10 ; Major depressive disorder, recurrent, moderate F33.1 ; Anxiety F41.9 ; Mitral valve prolapse I34.1 ; Arrhythmia as indication for cardiac pacemaker replacement I49.9 ; Primary insomnia F51.01 ; Bilateral headaches R51 and Environmental allergies Z91.09 [place] [id number] [place] [address] 49021- 5058 Jul, Post-traumatic stress disorder, unspecified F43.10 ; Major depressive disorder, recurrent, moderate F33.1 and Problems related to release from residential Z65.2 [place] [id number] [place] [address] 18045- 8784 June, Post-traumatic stress disorder, chronic F43.12 ; Anxiety F41.9 ; Problems related to release from residential Z65.2 ; Sleep apnea, obstructive G47.33 and Primary insomnia F51.01 [place] [id number] [place] [address] 43043- 0389 June, [place] [id number] [place] [address] 72906- 0962 June, [place] [id number] [place] [address] 98197- 2240 June, [place] [id number] [place] [address] 16366- 6273 June, Chronic pain G89.29 [place] [id number] [place] [address] 76911- 6814 June, Chronic pain G89.29 [place] [id number] [place] [address] 68098- 3344 June, Lipoma of left lower extremity D17.24 ; Open wound T14.8 and Swelling of left lower extremity M79.89 [place] [id number] [place] [address] 73615- 4920 June, Post-traumatic stress disorder, unspecified F43.10 ; Major depressive disorder, recurrent, moderate F33.1 and Problems related to release from residential Z65.2 [place] [id number] [place] [address] 26177- 7352 May, Lipoma of left lower extremity D17.24 ; Major depressive disorder, recurrent, moderate F33.1 ; Sleep apnea, obstructive G47.33 ; Hyperlipidemia E78.5 ; Obesity E66.9 ; HTN (hypertension) I10 ; Glaucoma H40.9 ; CAD (coronary artery disease) I25.10 ; Chronic tension headaches G44.229 ; Chronic pain G89.29 ; Anxiety F41.9 ; Nausea R11.0 and Primary insomnia F51.01 [place] [id number] [place] [address] 98922- 6100 May, [place] [id number] [place] [address] 51472- 2586 May, Chronic pain G89.29 [place] [id number] [place] [address] 38763- 7644 May, [place] [id number] [place] [address] 74897- 2348 31 Apr, 2016 Post-traumatic stress disorder, unspecified F43.10 ; Major depressive disorder, recurrent, moderate F33.1 and Problems related to release from residential Z65.2 [place] [id number] [place] [address] 70524- 2011 Apr, Primary insomnia F51.01 ; Post-traumatic stress disorder, chronic F43.12 and Problems related to release from residential Z65.2 [place] [id number] [place] [address] 22609- 1721 17 Apr, 2016 Post-traumatic stress disorder, unspecified F43.10 ; Major depressive disorder, recurrent, moderate F33.1 and Problems related to release from residential Z65.2 [address] [place] [address] 26886- 9764 Apr, [place] [id number] [place] [address] 51445- 7600 16 Apr, 2016 Sleep apnea, obstructive G47.33 ; Chronic pain G89.29 ; HTN (hypertension) I10 ; Mitral valve prolapse I34.1 ; Shoulder pain, left M25.512 ; Arrhythmia as indication for cardiac pacemaker replacement I49.9 ; Glaucoma H40.9 ; Bilateral headaches R51 ; Environmental allergies Z91.09 ; Primary insomnia F51.01 and Nausea R11.0 [place] [id number] [place] [address] 62169- 8225 Apr, [place] [id number] [place] [address] 69730- 7952 Apr, [place] [id number] [place] [address]- 7693 Apr, Post-traumatic stress disorder, unspecified F43.10 ; Major depressive disorder, recurrent, moderate F33.1 and Problems related to release from residential Z65.2 [place] [id number] [place] [address] 69554- 3339 Apr, HTN (hypertension) I10 [place] [id number] [place] [address] 070016- 2017 Apr, HTN (hypertension) I10 [place] [id number] [place] [address] 17668- 2496 Mar, Chronic pain G89.29 ; Primary insomnia F51.01 and Problems related to release from residential Z65.2 [place] [address] [place] [id number] [place] [address] [phone] Mar, Post-traumatic stress disorder, unspecified F43.10 ; Major depressive disorder, recurrent, moderate F33.1 and Problems related to release from residential Z65.2 [place] [address] [place] [id number] [place] [address] [phone] Feb, Post-traumatic stress disorder, unspecified F43.10 ; Major depressive disorder, recurrent, moderate F33.1 and Problems related to release from residential Z65.2 [place] [id number] [place] [address] [phone]- [phone] Feb, Chronic tension headaches G44.229 [place] [id number] [place], [place] [id number]- [phone] Feb, Sleep apnea, obstructive G47.33 ; Obesity [...] pacemaker replacement I49.9 and Primary insomnia F51.01 [facility] [address] [place] [id number] [place] [address] 29473- 1267 17 Feb, 2016 Post-traumatic stress disorder, unspecified F43.10 and Chronic pain G89.29 [place] [address] 45115- 8167 Feb, [facility] [place] [facility] [address] [id number] Feb, Dental caries K02.9 [place] [address] 26912- 0498 Feb, [place] [address] 73490- 1584 Feb, Post-traumatic stress disorder, unspecified F43.10 ; Major depressive disorder, recurrent, moderate F33.1 and Problems related to release from residential Z65.2 [place] [address] 54230- 9560 Jan, Sleep apnea, obstructive G47.33 and Chronic pain G89.29 [place] [address] 99226- 9639 Jan, [place] [address] 25399- 1554 Jan, Dental examination Z01.20 [place] [address] 70881- 3748 Jan, [place] [address] 36629- 9352 Jan, [place] [address] 08836- 7452 Dec, Post-traumatic stress disorder, unspecified F43.10 ; Major depressive disorder, recurrent, moderate F33.1 and Problems related to release from residential Z65.2 [place] [address] [place] [id number] [place] [address]- [address] Dec, Encounter for immunization Z23 ; Problems related to release from residential Z65.2 ; Sleep apnea, obstructive G47.33 and Post-traumatic stress disorder, chronic F43.12 [place] [address] [place] [id number] [place] [address] 15657- 1656 Dec, Sleep apnea, obstructive G47.33 ; Hyperlipidemia E78.5 ; Chronic pain G89.29 ; Glaucoma H40.9 ; HTN (hypertension) I10 ; Post-traumatic stress disorder, unspecified F43.10 ; Anxiety F41.9 ; Chronic tension headaches G44.229 ; Mitral valve prolapse I34.1 and CAD (coronary artery disease) I25.10 [place] [address] 23204- 6907 Dec, Post-traumatic stress disorder, unspecified F43.10 ; Major depressive disorder, recurrent, moderate F33.1 and Problems related to release from residential Z65.2 [place] [address] [place] [id number] [place] [address] 75335- 8602 Nov, Chronic pain G89.29 [place] [address] [place] [id number] [place] [address] 33052- 9166 Nov, Post-traumatic stress disorder, unspecified F43.10 ; Major depressive disorder, recurrent, moderate F33.1 and Problems related to release from residential Z65.2 [place] [address] [place] [id number] [place] [address] 25803- 4918 Oct, [place] [address] [place] [id number] [place] [address] 67203- 6357 Oct, [place] [address] [place] [id number] [place] [address] 26974- 5943 Oct, Post-traumatic stress disorder, unspecified F43.10 ; Major depressive disorder, recurrent, moderate F33.1 and Problems related to release from residential Z65.2 [facility] [id number] [place] [address] 18974- 6043 08 Oct, 2015 [place] [address] [place] [id number] [place] [address] 07 Oct, 2015 Environmental allergies Z91.09 ; Cough R05 and Open-angle glaucoma of both eyes H40.10X0 [place] [address] [place] [id number] [place] [address] 47854- 7426 Sep, [place] [address] [place] [id number] [place] [address] 21307- 0686 Sep, Post-traumatic stress disorder, unspecified F43.10 ; Major depressive disorder, recurrent, moderate F33.1 and Problems related to release from residential Z65.2 [place] [address] [place] [id number] [place] [address] 71038- 1206 Sep, Chronic pain G89.29 [place] [address] [place] [id number] [place] [address] 11346- 8038 Sep, Pain in left shoulder M25.512 ; Pain in right shoulder M25.511 and Other chronic pain G89.29 [place] [address] [place] [id number] [place] [address] 41022- 1201 Sep, [place] [address] [place] [id number] [place] [address] 30531- 0385 Sep, [facility] [address] [place] [id number] [place] [address] 34654- 8426 Sep, [facility] [place] [facility] [id number] [id number] Aug, Dental examination Z01.20 [place] [id number] [place] [address] 62456- 7066 Aug, Post-traumatic stress disorder, unspecified F43.10 ; Open- angle glaucoma of both eyes H40.10X0 and Problems related to release from residential Z65.2 [place] [address] [address]- 9201 Aug, [facility] [address] [place] [id number] [place] [address] 43966- 5796 Aug, Sleep apnea, obstructive G47.33 ; Obesity E66.9 ; Hyperlipidemia E78.5 ; Bilateral headaches R51 ; HTN (hypertension) I10 ; Post- traumatic stress disorder, unspecified F43.10 ; Anxiety F41.9 ; Neuropathy G62.9 ; Glaucoma H40.9 and Chronic pain G89.29 [facility] [place] [facility] [address] [place] [id number] [id number] Aug, Encounter for dental examination Z01.20 [place] [address] [place] [id number] [place] [address] 42549- 3381 Aug, Post-traumatic stress disorder, unspecified F43.10 ; Major depressive disorder, recurrent, moderate F33.1 and Problems related to release from residential Z65.2 [facility] [id number] [place] [address] 15609- 4599 Aug, [facility] [address] [place] [id number] [place] [address] 13899- 2190 Jul, [facility] [address] [place] [id number] [place] [address] 23050- 4441 Jul, Post-traumatic stress disorder, unspecified F43.10 and Major depressive disorder, recurrent, moderate F33.1 [facility] [id number] [address]- 0574 Jul, [facility] [id number] [place] [address] 49395- 3097 Jul, [facility] [address] [place] [id number] [place] [address] 08978- 8661 Jul, Chronic pain G89.29 [facility] [id number] [place] [address] 26550- 8856 June, Post-traumatic stress disorder, unspecified F43.10 and Major depressive disorder, recurrent, moderate F33.1 [facility] [address] [address]- 9859 June, [facility] [address] [place] [id number] [place] [address] 86865- 3249 June, Chronic pain G89.29 [facility] [id number] [place] [address] 04901- 8271 June, Post-traumatic stress disorder, unspecified F43.10 and Major depressive disorder, recurrent, moderate F33.1 [facility] [id number] [place] [address] 15436- 7909 May, Post-traumatic stress disorder, unspecified F43.10 and Major depressive disorder, recurrent, moderate F33.1 [facility] [address] [place] [id number] [place] [address] 26616- 8946 May, [facility] [address] [place] [id number] [place] [address] 32597- 6270 May, [facility] [id number] [place] [address] 51875- 5965 May, [facility] [address] [place] [id number] [place] [address] 50718- 1909 Apr, [facility] [id number] [place] [address] 37311- 3158 Apr, Post-traumatic stress disorder, unspecified F43.10 and Sleep apnea, obstructive G47.33 [facility] [address], [place] [address]- 9592 Apr, [facility] [address] [place] [id number] [place] [address] 84492- 6419 21 Apr, 2015 Shoulder pain, left M25.512 [facility] [address] [place] [id number] [address]- 9699 18 Apr, 2015 Post-traumatic stress disorder, unspecified F43.10 and Major depressive disorder, recurrent, moderate F33.1 [facility] [address] [address]- 1978 Apr, [facility] [id number] [place] [address] 57316- 3251 Apr, [facility] [id number] [place] [address] 78469- 1846 Apr, [facility] [address] [place] [id number] [place] [address] 77001- 2284 Apr, Left shoulder pain M25.512 [facility] [address] [place] [id number] [place] [address] 72759- 8660 Mar, [facility] [address] [place] [id number] [place] [address] 60459- 9110 Mar, [facility] [address] [place] [id number] [place] [address] 56768- 4819 Mar, [facility] [address] [place] [id number] [place] [address] 28298- 7870 Mar, Sleep apnea, obstructive G47.33 ; Obesity E66.9 ; Chronic pain G89.29 ; Hyperlipidemia E78.5 ; HTN (hypertension) I10 ; Blindness and low vision H54.10 ; Major depressive disorder, recurrent, moderate F33.1 and Anxiety F41.9 [facility] [address], [place] [address]- 5039 Mar, [facility] [id number] [place] [address] 32063- 3973 Mar, Post-traumatic stress disorder, unspecified F43.10 and Major depressive disorder, recurrent, moderate F33.1 [facility] [id number] [place] [address] 77357- 4380 08 Mar, 2015 [facility] [id number] [place] [address] 87989- 8996 04 Mar, 2015 HTN (hypertension) I10 ; Blindness and low vision H54.10 ; Obesity E66.9 ; Hyperlipidemia E78.5 ; Glaucoma H40.9 ; Chronic pain G89.29 and CAD (coronary artery disease) I25.10 [place] [address] 24568- 2612 Feb, [place] [address] 72869- 2824 Feb, Post-traumatic stress disorder, unspecified F43.10 ; Obesity E66.9 ; Sleep apnea, obstructive G47.33 and Open-angle glaucoma of both eyes H40.10X0 [address] 528470- 944 Feb, Post-traumatic stress disorder, unspecified F43.10 and Major depressive disorder, recurrent, moderate F33.[address] 49613- 0308 Feb, [place] [address] 56712- 0200 Feb, [address] 00149- 4517 Feb, HTN (hypertension) I10 ; Post-traumatic stress disorder, unspecified F43.10 ; Blindness and low vision H54.10 ; Obesity E66.9 ; Hyperlipidemia E78.5 ; Chronic pain G89.29 ; Glaucoma H40.9 ; Mitral valve prolapse I34.1 and Bilateral headaches R51 [place] [address] [place] [id number] [place] [address] 09624- 1947 Feb, [place] [id number] [place] [address] 63705- 9214 Feb, Post-traumatic stress disorder, unspecified F43.10 and Major depressive disorder, recurrent, moderate F33.1 [place] [address] [place] [id number] [place] [address] 24869- 3009 Feb, [place] [address] [place] [address]- 2546 Feb, [facility] [id number] [place] [address] 27043- 0949 Jan, [place] [address] [place] [id number] [place]- 0135 Jan, [place] [address] [place] [id number] [place] [address] 16329- 9677 Jan, Obesity E66.9 ; HTN (hypertension) I10 ; Blindness and low vision H54.10 ; Major depressive disorder, recurrent, moderate F33.1 ; Glaucoma H40.9 ; Hyperlipidemia E78.5 ; Sleep apnea, obstructive G47.33 ; Chronic pain G89.29 ; Anxiety F41.9 ; Chronic tension headaches G44.229 and Cough R05 [place] [address] [place] [id number] [place] [address] 49568- 4322 Jan, [place] [address] [place] [id number] [place] [address] 31145- 7815 Jan, [place] [address] [place] [id number] [place] [address] 03443- 6684 Jan, Post-traumatic stress disorder, unspecified F43.10 ; Obesity E66.9 ; Sleep apnea, obstructive G47.33 and Open-angle glaucoma of both eyes H40.10X0 [place] [address] [place] [id number] [place] [address] 96749- 4446 Jan, [place] [address] [place] [id number] [place] [address] 399027- 8803 Jan, Post-traumatic stress disorder, unspecified F43.10 and Major depressive disorder, recurrent, moderate F33.1 [place] [address] [place] [id number] [place] [address] 19473- 1279 Dec, [place] [address] [place] [id number] [place] [address] 08092- 0532 Dec, Sleep apnea, obstructive G47.33 ; Obesity E66.9 ; Hyperlipidemia E78.5 ; Glaucoma H40.9 ; Chronic pain G89.29 ; HTN (hypertension ) I10 ; Blindness and low vision H54.10 ; Anxiety F41.9 and CAD (coronary artery disease) I25.10 [facility] [address] [place] [id number] [place] [address] 67359- 2618 Nov, [facility] [address] [place] [id number] [place] [address] 90596- 6006 Nov, [facility] [address] 95844- 7277 Nov, [facility] [address] [place] [id number] [place] [address] 47881- 4115 Nov, [facility] [address] 27658- 2699 Nov, [facility] [address] [place] [id number] [place] [address] 63346- 5320 Nov, Encounter for immunization Z23 ; Sleep apnea, obstructive G47.33 ; Obesity E66.9 ; Hyperlipidemia E78.5 ; Glaucoma H40.9 ; Chronic pain G89.29 ; Anxiety F41.9 ; Chronic tension headaches G44.229 and HTN (hypertension ) I10 [facility] [address] [place] [id number] [place] [address] 21324- 4859 Nov, [facility] [address] [place] [id number] [place] [address] 53645- 7920 Nov, [facility] [address] 51467- 1143 Nov, Dizziness R42 [facility] [address] [place] [id number] [place] [address] 87259- 6988 Nov, [facility] [address] 17425- 9377 Oct, [facility] [address] [place] [id number] [place] [address] 10145- 8567 Oct, [facility] [address] [place] [address] [place] [address]- 1702 Oct, [facility] [address] [place] [id number] [place] [address] 49505- 4225 Oct, [facility] [address] [place] [id number] [place] [address] 02990- 8542 Oct, Dizziness 780.4 ; Essential hypertension 401.9 ; Obesity 278.00 ; Hyperlipidemia 272.4 ; Chronic pain 338.29 ; Glaucoma 365.9 and Anxiety 300.00 [facility] [address] 49357- 4144 Oct, Essential hypertension 401.9 ; Hyperlipidemia 272.4 ; Glaucoma 365.9 ; Obesity 278.00 ; Chronic pain 338.29 and Allergy to insects V15.06 [place] [address] [place] [id number] [place] [address] 40932- 3616 Sep, [place] [address] 79108- 8872 Sep, [place] [address] [place] [id number] [place] [address] 93111- 5579 Sep, [place] [address] [place] [id number] [place] [address] 83469- 8683 Sep, [facility] [address] [place] [id number] [place] [address] 69421- 0360 Aug, Essential hypertension 401.9 ; Obesity 278.00 [...] TABLET BY MOUTH TWICE DAILY 90 Active Atorvastatin Calcium 20 MG TAKE ONE [...]
--- OUTSIDE RECORDS SUMMARY | 2018-02-04 14:44 | XMS REPORT ---
Author Author ALENA ÁLVAREZ Organization [facility] Address [address] [place] [address] Care Team Providers Care Sales And Operations Trainee Name Role Phone ALENA ÁLVAREZ Unavailable PROBLEMS Type Condition ICD9-CM Code NRG96-VN Code Onset Dates Condition Status SNOMED Code Problem Primary insomnia F51.01 Active 5850905 Problem Other male erectile dysfunction N52.8 Active 867262152 Problem Morbid (severe) obesity due to excess calories E66.01 Active 808238295 Problem Sarcoidosis D86.9 Active 54408450 Problem Blindness and low vision H54.10 Active 783762706 Problem Problems related to release from mcfp Z65.2 Active 632450557903521 Problem Myocarditis, unspecified chronicity, 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 Active 21830271 Problem Chronic pain G89.29 Active 54367669 Problem 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 Active 094005137 Problem Body mass index (BMI) of 40.0-44.9 in adult Z68.41 Active 872750683 Problem Chronic pain syndrome G89.4 Active 020771608 Problem Migraine without aura and without status migrainosus, not intractable G43.009 Active 251783734 Problem Anxiety F41.9 Active 00775765 Problem Major depressive disorder, recurrent, moderate F33.1 Active 81482488 Problem HTN (hypertension) I10 Active 26431858 Problem Chronic tension headaches G44.229 Active 274878742 Problem CAD (coronary artery disease) I25.10 Active 34042101 Problem Post-traumatic stress disorder, chronic F43.12 Active 101372759 Problem Hyperlipidemia E78.5 Active 16274978 Problem Open-angle glaucoma of both eyes H40.10X0 Active 62023017 Problem Environmental allergies Z91.09 Active 616215915 Problem Sleep apnea, obstructive G47.33 Active 61914008 Problem Mitral valve prolapse I34.1 Active 436751448 Problem Arrhythmia as indication for cardiac pacemaker replacement I49.9 Active 16030958 ALLERGIES No Information ENCOUNTERS Encounter Location Date Diagnosis [facility] [id number] [address] Oct, [facility] [id number] [place] [address], [place] [address] Oct, [facility] [id number] [address] Oct, [facility] [id number] [place] [address], [place] [address]- [address] Sep, [facility] [id number] [place] [address], [place] [address]- 77[address] Sep, [facility] [id number] [place] [address], [place] [address]- [address] Sep, Sarcoidosis D86.9 [facility] [id number] [place] [address] 38355- 7771 Sep, Sarcoidosis D86.9 [facility] [id number] [place] [address] 98113- 9188 Sep, [facility] [id number] [place] [address] 65291- 8501 Sep, [facility] [address], [place] [address] Sep, [facility] [address] [address] Sep, [facility] [address], [place] [address] Sep, Left leg pain M79.605 [facility] [address] [place] [address] 61388- 6719 Sep, HTN (hypertension) I10 [facility] [address] [address] Sep, [facility] [address] [place] [address] 11735- 2026 Sep, Post-traumatic stress disorder, unspecified F43.10 ; Major depressive disorder, recurrent, moderate F33.1 and Problems related to release from mcfp Z65.2 [place] [id number] [place] [address] 81461- 6350 Sep, [place] [facility] [id number] [place] [address] 04866- 3962 Aug, [facility] [facility] [id number] [place] [address] 945099- 2050 Aug, Sarcoidosis D86.9 [place] [address] [address]- 7686 Aug, Sarcoidosis D86.9 [place] [id number] [place] [address] 94992- 3946 Aug, HTN (hypertension) I10 [place] [address] 29463- 9255 Aug, Post-traumatic stress disorder, unspecified F43.10 ; Major depressive disorder, recurrent, moderate F33.1 and Problems related to release from mcfp Z65.2 [place] [id number] [place] [address] 00543- 4730 Aug, [place] [id number] [place] [address] 37569- 5034 Aug, Left leg pain M79.605 [place] [id number] [place] [address] 73400- 5055 Jul, Post-traumatic stress disorder, chronic F43.12 ; Anxiety F41.9 ; Problems related to release from mcfp Z65.2 and BMI 40.0-44.9, adult Z68.41 [place] [id number] [place] [address] 14818- 2061 Jul, HTN (hypertension) I10 ; Body mass index (BMI) of 40.0-44.9 in adult Z68.41 and Acute swimmer''s ear of both sides H60.333 [facility] [id number] [place] [address] 60261- 1917 19 Jul, 2017 Glaucoma H40.9 [facility] [id number] [place] [address] 76573- 7604 Jul, [facility] [id number] [place] [address] 11355- 0446 13 Jul, 2017 Sarcoidosis D86.9 [facility] [id number] [place] [address] 92086- 4971 Jul, Left leg pain M79.605 [facility] [address] 03989- 1792 Jul, Sarcoidosis D86.9 [facility] [id number] [place] [address] 16738- 3626 Jul, Post-traumatic stress disorder, unspecified F43.10 ; Major depressive disorder, recurrent, moderate F33.1 and Problems related to release from mcfp Z65.2 [facility] [id number] [place] [address] 66031- 1789 June, [facility] [id number] [place] [address] 51844 -1748 June, Sore throat J02.9 and BMI 40.0-44.9, adult Z68.41 [facility] [id number] [place] [address] 90045- 7141 June, [facility] [id number] [place] [address] 33762- 5897 June, [facility] [id number] [place] [address] 71112- 2471 June, [facility] [id number] [place] [address] 67086- 9643 June, Left leg pain M79.605 [facility] [id number] [place] [address] 40992- 6095 June, Sarcoidosis D86.9 [facility] [address], [place] [address]- 6380 June, [facility] [id number] [place] [address] 244751- 6917 June, [facility] [id number] [place] [address] 07145- 0552 June, Left leg pain M79.605 [facility] [id number] [place] [address] 24395- 9242 May, [facility] [id number] [place] [address] 37507- 3044 May, [facility] [id number] [place] [address] 83294- 3390 May, [facility] [id number] [place] [address] 65841- 1918 May, Left leg pain M79.605 [facility] [address] [place] [address] 70662- 3274 May, Post-traumatic stress disorder, unspecified F43.10 ; Major depressive disorder, recurrent, moderate F33.1 and Problems related to release from mcfp Z65.2 [facility] [address] [place] [address] 56685- 1588 May, Chronic pain G89.29 ; Anxiety F41.9 ; Chest pain, unspecified type R07.9 and BMI 40.0-44.9, adult Z68.41 [facility] [address], [place] [address]- 2110 Apr, [facility] [id number] [place] [address] 05574- 6309 Apr, Left leg pain M79.605 [facility] [id number] [place] [address] 15145- 6903 27 Mar, 2018 Post-traumatic stress disorder, unspecified F43.10 ; Problems related to release from mcfp Z65.2 ; Anxiety F41.9 and BMI 40.0-44.9 , adult Z68.41 [place] [address] [address]- 3430 22 Apr, 2017 [place] [address] 52213- 7431 19 Apr, 2017 Left leg pain M79.605 [place] [address] 73477- 2322 13 Apr, 2017 Post-traumatic stress disorder, unspecified F43.10 ; Major depressive disorder, recurrent, moderate F33.1 and Problems related to release from mcfp Z65.2 [place] [address] 10337- 9935 12 Apr, [address] 53195- 2433 12 Apr, 2017 Chronic pain G89.29 ; 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 ; Morbid (severe) obesity due to excess calories E66.01 ; Anxiety F41.9 and BMI 40.0-44.9, adult Z68.41 [facility] [address] [address] -[address] 10 Apr, 2017 Sore throat J02.9 and BMI 40.0-44.9, adult Z68.[address] 11037- 6317 02 Apr, 2017 Left leg pain M79.605 [facility] [address] [id number] Mar, Dental examination Z01.[address] 58372- 1808 Mar, [facility] [address] [address] -[address]321 Mar, Cough R05 ; Viral gastroenteritis A08.4 and BMI 40.0-44.9, adult Z68.41 [place] [address] [place] [address] 19901- 9780 Mar, Left leg pain M79.605 [place] [id number] [place] [address] 92400- 7156 Mar, Post-traumatic stress disorder, unspecified F43.10 ; Major depressive disorder, recurrent, moderate F33.1 and Problems related to release from mcfp Z65.2 [place] [id number] [place] [address] 98635- 9856 Feb, Left leg pain M79.605 [place] [id number] [place] [address] 28894- 9960 Feb, [place] [address] 58039- 2353 Feb, BMI 40.0-44.9, adult Z68.41 ; Chronic pain syndrome G89.4 ; Migraine without aura and without status migrainosus, not intractable G43.009 ; Mitral valve prolapse I34.1 and 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 [place] [id number] [place] [address] 74360- 1317 Feb, Post-traumatic stress disorder, chronic F43.12 ; Anxiety F41.9 ; Problems related to release from mcfp Z65.2 and BMI 40.0-44.9, adult Z68.41 [place] [id number] [place] [address] 91141- 6485 Feb, Post-traumatic stress disorder, unspecified F43.10 ; Major depressive disorder, recurrent, moderate F33.1 and Problems related to release from mcfp Z65.2 [place] [id number] [place] [address] 15956- 4047 Feb, Left leg pain M79.605 [place] [id number] [place] [address] 48844- 5867 Jan, Post-traumatic stress disorder, unspecified F43.10 ; Major depressive disorder, recurrent, moderate F33.1 and Problems related to release from mcfp Z65.2 [facility] [address] [place] [address] 50152- 3544 Jan, [facility] [id number] [place] [address] 05808- 6479 Jan, [facility] [id number] [place] [address] 62549- 4432 Jan, Anxiety F41.9 [facility] [id number] [place] [address] 17419- 6218 Jan, Left leg pain M79.605 [place] [id number] [place] [address]- 6766 Dec, Left leg pain M79.605 [place] [id number] [place] [address] 21070- 7855 Dec, [facility] [address] [place] [address] 56602- 5286 Dec, Post-traumatic stress disorder, unspecified F43.10 ; Major depressive disorder, recurrent, moderate F33.1 and Problems related to release from mcfp Z65.2 [facility] [address] [place] [address] 65237- 8596 31 Nov, 2016 Chronic pain G89.29 and Anxiety F41.9 [facility] [id number] [place] [address] 15654- 7444 24 Nov, 2016 Chronic pain G89.29 and Anxiety F41.9 [facility] [address] [place] [address] 38373- 5441 16 Nov, 2016 Post-traumatic stress disorder, unspecified F43.10 ; Major depressive disorder, recurrent, moderate F33.1 and Problems related to release from mcfp Z65.2 [place] [address] [place] [address] 58108- 9809 09 Oct, 2017 Other abnormal findings in specimens from other organs, systems and tissues R89.8 ; Other male erectile dysfunction N52.8 ; Body mass index (BMI) of 40.0-44.9 in adult Z68.41 and Morbid (severe) obesity due to excess calories E66.01 [facility] [address] [place] [address] 95571- 9586 02 Nov, 2016 Post-traumatic stress disorder, unspecified F43.10 ; Major depressive disorder, recurrent, moderate F33.1 and Problems related to release from mcfp Z65.2 [facility] [address] [place] [address] [id number] 29 Oct, 2016 Dental examination Z01.20 [place] [address] 79158- 4446 28 Oct, 2016 [place] [address] 45731- 5772 Oct, Encounter for immunization Z23 [address] 21385- 5544 Oct, Chronic pain G89.29 ; Anxiety F41.9 ; Arrhythmia as indication for cardiac pacemaker replacement I49.9 and Glaucoma H40.9 [place] [id number] [place] [address] 70845- 5403 Oct, Anxiety F41.9 ; Post-traumatic stress disorder, chronic F43.12 and Problems related to release from mcfp Z65.2 [place] [id number] [place] [address] 86042- 0870 Oct, Post-traumatic stress disorder, unspecified F43.10 ; Major depressive disorder, recurrent, moderate F33.1 and Problems related to release from mcfp Z65.2 [place] [id number] [place] [address] 48499- 0319 Sep, Chronic pain G89.29 and Anxiety F41.9 [place] [id number] [place] [address] 62531- 1849 Sep, Post-traumatic stress disorder, unspecified F43.10 ; Major depressive disorder, recurrent, moderate F33.1 and Problems related to release from mcfp Z65.2 [place] [id number] [place] [address] 47349- 6157 Sep, Post-traumatic stress disorder, unspecified F43.10 ; Major depressive disorder, recurrent, moderate F33.1 and Problems related to release from mcfp Z65.2 [place] [id number] [place] [address] 47495- 9109 04 Sep, 2016 Chronic pain G89.29 [place] [id number] [place] [address] 62323- 3108 Aug, Dental caries, unspecified K02.9 [place] [id number] [place] [address] 53777- 8392 Aug, Sleep apnea, obstructive G47.33 ; Obesity E66.9 ; Chronic pain G89.29 ; HTN (hypertension) I10 ; Major depressive disorder, recurrent, moderate F33.1 ; Anxiety F41.9 ; Chronic tension headaches G44.229 ; Mitral valve prolapse I34.1 ; Arrhythmia as indication for cardiac pacemaker replacement I49.9 ; Dental caries, unspecified K02.9 ; Primary insomnia F51.01 and Hyperlipidemia E78.5 [place] [address] [place] [address] 98353- 4717 Aug, Post-traumatic stress disorder, unspecified F43.10 ; Major depressive disorder, recurrent, moderate F33.1 and Problems related to release from mcfp Z65.2 [facility] [address] [place] [address] 37792- 0403 Aug, Dental examination Z01.20 [facility] [id number] [place] [address] [id number] Aug, Dental examination Z01.20 [facility] [id number] [place] [address] 54720- 0683 Aug, Post-traumatic stress disorder, unspecified F43.10 ; Major depressive disorder, recurrent, moderate F33.1 and Problems related to release from mcfp Z65.2 [place] [id number] [place] [address] 29261- 9461 Aug, Chronic pain G89.29 and Primary insomnia F51.01 [place] [id number] [place] [address] 22765- 6182 Jul, [place] [id number] [place] [address] 54234- 7193 Jul, [place] [id number] [place] [address] 32949- 5149 Jul, Nausea R11.0 [place] [address] 09298- 2639 Jul, Arrhythmia as indication for cardiac pacemaker replacement I49.9 [place] [id number] [place] [address] 87168- 4157 Jul, Post-traumatic stress disorder, unspecified F43.10 ; Major depressive disorder, recurrent, moderate F33.1 and Problems related to release from mcfp Z65.2 [place] [id number] [place] [address] 27006- 5217 09 Jul, 2016 Anxiety F41.9 [place] [address] [place] [address] 98621- 4290 08 Jul, 2016 Chronic pain G89.29 [place] [address] [place] [address] 84654- 5420 02 Jul, 2016 Sleep apnea, obstructive G47.33 ; Hyperlipidemia E78.5 ; Chronic pain G89.29 ; Blindness and low vision H54.10 ; Major depressive disorder, recurrent, moderate F33.1 ; Anxiety F41.9 ; Mitral valve prolapse I34.1 ; Arrhythmia as indication for cardiac pacemaker replacement I49.9 ; Primary insomnia F51.01 ; Bilateral headaches R51 and Environmental allergies Z91.09 [place] [id number] [place] [address] 09797- 4583 Jul, Post-traumatic stress disorder, unspecified F43.10 ; Major depressive disorder, recurrent, moderate F33.1 and Problems related to release from mcfp Z65.2 [place] [id number] [place] [address] 84655- 4363 June, Post-traumatic stress disorder, chronic F43.12 ; Anxiety F41.9 ; Problems related to release from mcfp Z65.2 ; Sleep apnea, obstructive G47.33 and Primary insomnia F51.01 [place] [id number] [place] [address] 29584- 5689 June, [place] [id number] [place] [address] 04542- 3623 June, [place] [id number] [place] [address] 47498- 8415 June, [place] [id number] [place] [address] 24198- 6794 June, Chronic pain G89.29 [place] [id number] [place] [address] 65467- 9723 June, Chronic pain G89.29 [place] [id number] [place] [address] 89268- 3496 June, Lipoma of left lower extremity D17.24 ; Open wound T14.8 and Swelling of left lower extremity M79.89 [place] [id number] [place] [address] 26554- 4203 June, Post-traumatic stress disorder, unspecified F43.10 ; Major depressive disorder, recurrent, moderate F33.1 and Problems related to release from mcfp Z65.2 [place] [id number] [place] [address] 55626- 9844 May, Lipoma of left lower extremity D17.24 ; Major depressive disorder, recurrent, moderate F33.1 ; Sleep apnea, obstructive G47.33 ; Hyperlipidemia E78.5 ; Obesity E66.9 ; HTN (hypertension) I10 ; Glaucoma H40.9 ; CAD (coronary artery disease) I25.10 ; Chronic tension headaches G44.229 ; Chronic pain G89.29 ; Anxiety F41.9 ; Nausea R11.0 and Primary insomnia F51.01 [place] [id number] [place] [address] 93412- 2114 May, [place] [id number] [place] [address] 57083- 2594 May, Chronic pain G89.29 [place] [id number] [place] [address] 02598- 2048 May, [place] [id number] [place] [address] 78053- 5869 31 Apr, 2016 Post-traumatic stress disorder, unspecified F43.10 ; Major depressive disorder, recurrent, moderate F33.1 and Problems related to release from mcfp Z65.2 [place] [id number] [place] [address] 84402- 7461 Apr, Primary insomnia F51.01 ; Post-traumatic stress disorder, chronic F43.12 and Problems related to release from mcfp Z65.2 [place] [id number] [place] [address] 59874- 8289 17 Apr, 2016 Post-traumatic stress disorder, unspecified F43.10 ; Major depressive disorder, recurrent, moderate F33.1 and Problems related to release from mcfp Z65.2 [address] [place] [address] 10275- 2677 Apr, [place] [id number] [place] [address] 53530- 3302 16 Apr, 2016 Sleep apnea, obstructive G47.33 ; Chronic pain G89.29 ; HTN (hypertension) I10 ; Mitral valve prolapse I34.1 ; Shoulder pain, left M25.512 ; Arrhythmia as indication for cardiac pacemaker replacement I49.9 ; Glaucoma H40.9 ; Bilateral headaches R51 ; Environmental allergies Z91.09 ; Primary insomnia F51.01 and Nausea R11.0 [place] [id number] [place] [address] 70806- 9011 Apr, [place] [id number] [place] [address] 51617- 1948 Apr, [place] [id number] [place] [address]- 5133 Apr, Post-traumatic stress disorder, unspecified F43.10 ; Major depressive disorder, recurrent, moderate F33.1 and Problems related to release from mcfp Z65.2 [place] [id number] [place] [address] 39417- 8744 Apr, HTN (hypertension) I10 [place] [id number] [place] [address] 392548- 7916 Apr, HTN (hypertension) I10 [place] [id number] [place] [address] 35543- 4974 Mar, Chronic pain G89.29 ; Primary insomnia F51.01 and Problems related to release from mcfp Z65.2 [place] [id number] [place] [address] 07001- 1238 Mar, Post-traumatic stress disorder, unspecified F43.10 ; Major depressive disorder, recurrent, moderate F33.1 and Problems related to release from mcfp Z65.2 [place] [id number] [place] [address] 30079- 4084 Feb, Post-traumatic stress disorder, unspecified F43.10 ; Major depressive disorder, recurrent, moderate F33.1 and Problems related to release from mcfp Z65.2 [place] [address] [place] [address] 74793- 9221 Feb, Chronic tension headaches G44.229 [place] [id number] [place] [address]- 9561 Feb, Sleep apnea, obstructive G47.33 ; Obesity [...] pacemaker replacement I49.9 and Primary insomnia F51.01 [facility] [id number] [place] [address] 33751- 8061 17 Feb, 2016 Post-traumatic stress disorder, unspecified F43.10 and Chronic pain G89.29 [place] [address] 23887- 6535 Feb, [facility] [address] [id number] Feb, Dental caries K02.9 [place] [address] 37500- 6989 Feb, [place] [address] 30578- 5346 Feb, Post-traumatic stress disorder, unspecified F43.10 ; Major depressive disorder, recurrent, moderate F33.1 and Problems related to release from mcfp Z65.2 [place] [address] 30998- 3382 Jan, Sleep apnea, obstructive G47.33 and Chronic pain G89.29 [place] [address] [address] Jan, [place] [address] [address] Jan, Dental examination Z01.20 [place] [address] [address] Jan, [place] [address] [address] Jan, [place] [address] [address] Dec, Post-traumatic stress disorder, unspecified F43.10 ; Major depressive disorder, recurrent, moderate F33.1 and Problems related to release from [facility] Z65.2 [place] [address] [place] [id number] [place], [place] [id number] Dec, Encounter for immunization Z23 ; Problems related to release from [facility] Z65.2 ; Sleep apnea, obstructive G47.33 and Post-traumatic stress disorder, chronic F43.12 [place] [address] [place] [id number] [place] [address] Dec, Sleep apnea, obstructive G47.33 ; Hyperlipidemia E78.5 ; Chronic pain G89.29 ; Glaucoma H40.9 ; HTN (hypertension) I10 ; Post-traumatic stress disorder, unspecified F43.10 ; Anxiety F41.9 ; Chronic tension headaches G44.229 ; Mitral valve prolapse I34.1 and CAD (coronary artery disease) I25.10 [place] [address] [address] Dec, Post-traumatic stress disorder, unspecified F43.10 ; Major depressive disorder, recurrent, moderate F33.1 and Problems related to release from [facility] Z65.2 [place] [id number] [place] [address] 42973- 5597 Nov, Chronic pain G89.29 [place] [id number] [place] [address] 76917- 2214 Nov, Post-traumatic stress disorder, unspecified F43.10 ; Major depressive disorder, recurrent, moderate F33.1 and Problems related to release from [facility] Z65.2 [place] [id number] [place] [address] 60072- 9263 Oct, [place] [id number] [place] [address] 22641- 5697 Oct, [place] [id number] [place] [address] 76066- 4041 Oct, Post-traumatic stress disorder, unspecified F43.10 ; Major depressive disorder, recurrent, moderate F33.1 and Problems related to release from [facility] Z65.2 [facility] [id number] [place] [address] 93987- 1318 08 Oct, 2015 [place] [id number] [place] [address]- [address] 07 Oct, 2015 Environmental allergies Z91.09 ; Cough R05 and Open-angle glaucoma of both eyes H40.10X0 [place] [id number] [place] [address] 98861- 7910 Sep, [place] [id number] [place] [address] 18012- 7175 Sep, Post-traumatic stress disorder, unspecified F43.10 ; Major depressive disorder, recurrent, moderate F33.1 and Problems related to release from [facility] Z65.2 [place] [id number] [place] [address] 87536- 4802 Sep, Chronic pain G89.29 [place] [id number] [place] [address] 76442- 9934 Sep, Pain in left shoulder M25.512 ; Pain in right shoulder M25.511 and Other chronic pain G89.29 [place] [id number] [place] [address] 46697- 3881 Sep, [place] [id number] [place] [address] 00717- 1244 Sep, [facility] [id number] [place] [address] 15225- 5824 Sep, [facility] [address] [id number] Aug, Dental examination Z01.20 [place] [id number] [place] [address] 81972- 1942 Aug, Post-traumatic stress disorder, unspecified F43.10 ; Open- angle glaucoma of both eyes H40.10X0 and Problems related to release from [facility] Z65.2 [place] [address] [address] 6258 Aug, [facility] [id number] [place] [address] 89395- 7109 Aug, Sleep apnea, obstructive G47.33 ; Obesity E66.9 ; Hyperlipidemia E78.5 ; Bilateral headaches R51 ; HTN (hypertension) I10 ; Post- traumatic stress disorder, unspecified F43.10 ; Anxiety F41.9 ; Neuropathy G62.9 ; Glaucoma H40.9 and Chronic pain G89.29 [facility] [id number] [id number] Aug, Encounter for dental examination Z01.20 [place] [id number] [place] [address] 57065- 6031 Aug, Post-traumatic stress disorder, unspecified F43.10 ; Major depressive disorder, recurrent, moderate F33.1 and Problems related to release from [facility] Z65.2 [facility] [id number] [place] [address] 34646- 3449 Aug, [facility] [id number] [place] [address] 43370- 8506 Jul, [facility] [id number] [place] [address] 09599- 4413 Jul, Post-traumatic stress disorder, unspecified F43.10 and Major depressive disorder, recurrent, moderate F33.1 [facility] [address] [address] 9422 Jul, [facility] [id number] [place] [address] 88089- 4604 Jul, [facility] [id number] [place] [address] 20755- 4288 Jul, Chronic pain G89.29 [facility] [id number] [place] [address] 94423- 1335 June, Post-traumatic stress disorder, unspecified F43.10 and Major depressive disorder, recurrent, moderate F33.1 [facility] [address] [address]- 7128 June, [facility] [id number] [place] [address] 03662- 8657 June, Chronic pain G89.29 [facility] [id number] [place] [address] 13433- 9026 June, Post-traumatic stress disorder, unspecified F43.10 and Major depressive disorder, recurrent, moderate F33.1 [facility] [id number] [place] [address] 54421- 4939 May, Post-traumatic stress disorder, unspecified F43.10 and Major depressive disorder, recurrent, moderate F33.1 [facility] [id number] [place] [address] 98025- 1361 May, [facility] [id number] [place] [address] 30542- 6609 May, [facility] [id number] [place] [address] 46960- 3091 May, [facility] [id number] [place] [address] 89299- 0477 Apr, [facility] [id number] [place] [address] 94455- 8172 Apr, Post-traumatic stress disorder, unspecified F43.10 and Sleep apnea, obstructive G47.33 [facility] [address] [address]- 9324 Apr, [facility] [id number] [place] [address] 10334- 3320 21 Apr, 2015 Shoulder pain, left M25.512 [facility] [id number] [address]- 2339 18 Apr, 2015 Post-traumatic stress disorder, unspecified F43.10 and Major depressive disorder, recurrent, moderate F33.1 [facility] [address], [place] [address]- 4842 Apr, [facility] [id number] [place] [address] 86090- 9084 Apr, [facility] [id number] [place] [address] 80663- 8453 Apr, [facility] [id number] [place] [address] 58241- 3102 Apr, Left shoulder pain M25.512 [facility] [id number] [place] [address] 61275- 8828 Mar, [facility] [id number] [place] [address] 05691- 2002 Mar, [facility] [id number] [place] [address] 89246- 1656 Mar, [facility] [id number] [place] [address] 89255- 4445 Mar, Sleep apnea, obstructive G47.33 ; Obesity E66.9 ; Chronic pain G89.29 ; Hyperlipidemia E78.5 ; HTN (hypertension) I10 ; Blindness and low vision H54.10 ; Major depressive disorder, recurrent, moderate F33.1 and Anxiety F41.9 [facility] [address] [address]- 8200 Mar, [facility] [id number] [place] [address] 72726- 5935 Mar, Post-traumatic stress disorder, unspecified F43.10 and Major depressive disorder, recurrent, moderate F33.1 [facility] [id number] [place] [address] 52690- 5936 08 Mar, 2015 [facility] [id number] [place] [address] 44471- 5441 04 Mar, 2015 HTN (hypertension) I10 ; Blindness and low vision H54.10 ; Obesity E66.9 ; Hyperlipidemia E78.5 ; Glaucoma H40.9 ; Chronic pain G89.29 and CAD (coronary artery disease) I25.10 [place] [address] 22525- 5836 Feb, [place] [address] 06146- 2030 Feb, Post-traumatic stress disorder, unspecified F43.10 ; Obesity E66.9 ; Sleep apnea, obstructive G47.33 and Open-angle glaucoma of both eyes H40.10X0 [address] 896287- 753 Feb, Post-traumatic stress disorder, unspecified F43.10 and Major depressive disorder, recurrent, moderate F33.[address] 73774- 1001 Feb, [place] [address] 31592- 5903 Feb, [address] 13650- 0750 Feb, HTN (hypertension) I10 ; Post-traumatic stress disorder, unspecified F43.10 ; Blindness and low vision H54.10 ; Obesity E66.9 ; Hyperlipidemia E78.5 ; Chronic pain G89.29 ; Glaucoma H40.9 ; Mitral valve prolapse I34.1 and Bilateral headaches R51 [place] [id number] [place] [address] 18552- 6445 Feb, [place] [id number] [place] [address] 16431- 6191 Feb, Post-traumatic stress disorder, unspecified F43.10 and Major depressive disorder, recurrent, moderate F33.1 [place] [id number] [place] [address] 60001- 4906 Feb, [place] [address] [place] [address]- 2546 Feb, [facility] [id number] [place] [address] 75983- 1614 Jan, [place] [id number] [place] [address] Jan, [place] [id number] [place] [address] 22804- 8457 Jan, Obesity E66.9 ; HTN (hypertension) I10 ; Blindness and low vision H54.10 ; Major depressive disorder, recurrent, moderate F33.1 ; Glaucoma H40.9 ; Hyperlipidemia E78.5 ; Sleep apnea, obstructive G47.33 ; Chronic pain G89.29 ; Anxiety F41.9 ; Chronic tension headaches G44.229 and Cough R05 [place] [id number] [place] [address] 43673- 0806 Jan, [place] [id number] [place] [address] 16006- 2146 Jan, [place] [id number] [place] [address] 29160- 6905 Jan, Post-traumatic stress disorder, unspecified F43.10 ; Obesity E66.9 ; Sleep apnea, obstructive G47.33 and Open-angle glaucoma of both eyes H40.10X0 [place] [id number] [place] [address] 02036- 8415 Jan, [place] [id number] [place] [address] 144224- 5374 Jan, Post-traumatic stress disorder, unspecified F43.10 and Major depressive disorder, recurrent, moderate F33.1 [place] [id number] [place] [address] 61417- 8089 Dec, [place] [id number] [place] [address] 87506- 5797 Dec, Sleep apnea, obstructive G47.33 ; Obesity E66.9 ; Hyperlipidemia E78.5 ; Glaucoma H40.9 ; Chronic pain G89.29 ; HTN (hypertension ) I10 ; Blindness and low vision H54.10 ; Anxiety F41.9 and CAD (coronary artery disease) I25.10 [facility] [id number] [place] [address] 48147- 1405 Nov, [facility] [id number] [place] [address] 59211- 6229 Nov, [facility] [address] 53207- 6228 Nov, [facility] [id number] [place] [address] 58489- 7633 Nov, [facility] [address] 46634- 5553 Nov, [facility] [id number] [place] [address] 80648- 8607 Nov, Encounter for immunization Z23 ; Sleep apnea, obstructive G47.33 ; Obesity E66.9 ; Hyperlipidemia E78.5 ; Glaucoma H40.9 ; Chronic pain G89.29 ; Anxiety F41.9 ; Chronic tension headaches G44.229 and HTN (hypertension ) I10 [facility] [id number] [place] [address] 83077- 4805 Nov, [facility] [id number] [place] [address] 99806- 4078 Nov, [facility] [address] 84468- 5933 Nov, Dizziness R42 [facility] [id number] [place] [address] 17551- 7709 Nov, [facility] [address] 93369- 2197 Oct, [facility] [id number] [place] [address] 79782- 3203 Oct, [facility] [address] [place] [address]- 1932 Oct, [facility] [id number] [place] [address] 05117- 0367 Oct, [facility] [id number] [place] [address] [id number]- 4269 Oct, Dizziness 780.4 ; Essential hypertension 401.9 ; Obesity 278.00 ; Hyperlipidemia 272.4 ; Chronic pain 338.29 ; Glaucoma 365.9 and Anxiety 300.00 [place] [address] 45724- 5795 Oct, Essential hypertension 401.9 ; Hyperlipidemia 272.4 ; Glaucoma 365.9 ; Obesity 278.00 ; Chronic pain 338.29 and Allergy to insects V15.06 [place] [id number] [place] [address] 11455- 8179 Sep, [place] [address] 84242- 8836 Sep, [place] [id number] [place] [address] 53163- 3103 Sep, [address] 77557- 4440 Sep, [place] [id number] [place] [address] 29805- 2224 Aug, Essential hypertension 401.9 ; Obesity 278.00 ; Hyperlipidemia 272.4 ; Glaucoma 365.9 ; Lipoma 214.9 ; Mitral valve prolapse 424.0 ; Angina at rest 413.9 ; Lymphedema 457.1 and Chronic pain 338.29 IMMUNIZATIONS No Known Immunizations SOCIAL HISTORY Never Assessed REASON FOR VISIT lab results, Pt here in clinic requesting labs results from . These results were faxed to for them to review as they ordered them. Pt will call them. PLAN OF CARE VITAL SIGNS MEDICATIONS Unknown [...]
--- OUTSIDE RECORDS SUMMARY | 2018-02-04 14:45 | XMS REPORT ---
Author Author ALENA ÁLVAREZ Organization [facility] Address [address] [place] [address] Care Team Providers Care Compass Operator Name Role Phone ALENA ÁLVAREZ Unavailable PROBLEMS Type Condition ICD9-CM Code RYY41-RH Code Onset Dates Condition Status SNOMED Code Problem Primary insomnia F51.01 Active 1108319 Problem Other male erectile dysfunction N52.8 Active 041345365 Problem Morbid (severe) obesity due to excess calories E66.01 Active 566517949 Problem Sarcoidosis D86.9 Active 03807916 Problem Blindness and low vision H54.10 Active 108688835 Problem Problems related to release from group home Z65.2 Active [id number] Problem Myocarditis, unspecified chronicity, 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 Active 40234511 Problem Chronic pain G89.29 Active 87262022 Problem 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 Active 531411019 Problem Body mass index (BMI) of 40.0-44.9 in adult Z68.41 Active 490650618 Problem Chronic pain syndrome G89.4 Active 564989975 Problem Migraine without aura and without status migrainosus, not intractable G43.009 Active 706420355 Problem Anxiety F41.9 Active 51908813 Problem Major depressive disorder, recurrent, moderate F33.1 Active 80342486 Problem HTN (hypertension) I10 Active 32743859 Problem Chronic tension headaches G44.229 Active 439651190 Problem CAD (coronary artery disease) I25.10 Active 56279829 Problem Post-traumatic stress disorder, chronic F43.12 Active 176351865 Problem Hyperlipidemia E78.5 Active 06158494 Problem Open-angle glaucoma of both eyes H40.10X0 Active 82525304 Problem Environmental allergies Z91.09 Active 357359353 Problem Sleep apnea, obstructive G47.33 Active 51867719 Problem Mitral valve prolapse I34.1 Active 600999810 Problem Arrhythmia as indication for cardiac pacemaker replacement I49.9 Active 08359707 ALLERGIES No Information ENCOUNTERS Encounter Location Date Diagnosis [facility] [address], [place] [address] Oct, [facility] [id number] [place] [address] 71399- 3466 Oct, [facility] [address], [place] [address] Oct, [facility] [id number] [place] [address] 70555- 3093 Sep, [facility] [address], [place] [address] Sep, [facility] [id number] [place] [address] 46829- 6069 Sep, [facility] [id number] [place] [address] 77022- 7295 Sep, [facility] [id number] [place] [address] 44259- 4035 Sep, [facility] [address], [place] [address] Sep, [facility] [id number] [place] [address] 28431- 2069 Sep, Left leg pain M79.605 [facility] [address], [place] [address] 39[address] Sep, HTN (hypertension) I10 [facility] [address], [place] [address] 77[address] Sep, [facility] [address], [place] [address] Sep, Post-traumatic stress disorder, unspecified F43.10 ; Major depressive disorder, recurrent, moderate F33.1 and Problems related to release from group home Z65.2 [facility] [address] [address] Sep, [place] [id number] [place] [address] 65806- 5712 Aug, [place] [address] 09514- 4124 Aug, Sarcoidosis D86.9 [place] [id number] [place] [address] 82400- 5771 Aug, Sarcoidosis D86.9 [place] [id number] [place] [address] 584229- 1537 Aug, HTN (hypertension) I10 [place] [address] 07914- 4703 Aug, Post-traumatic stress disorder, unspecified F43.10 ; Major depressive disorder, recurrent, moderate F33.1 and Problems related to release from group home Z65.2 [place] [address] 77580- 2993 Aug, [place] [id number] [place] [address] 89984- 4093 Aug, Left leg pain M79.605 [place] [id number] [place] [address] 34139- 8349 Jul, Post-traumatic stress disorder, chronic F43.12 ; Anxiety F41.9 ; Problems related to release from group home Z65.2 and BMI 40.0-44.9, adult Z68.41 [place] [id number] [place] [address] 53131- 0079 Jul, HTN (hypertension) I10 ; Body mass index (BMI) of 40.0-44.9 in adult Z68.41 and Acute swimmer''s ear of both sides H60.333 [place] [id number] [place] [address] 80216- 4803 Jul, Glaucoma H40.9 [place] [id number] [place] [address] 72956- 4162 14 Jul, 2017 [facility] [id number] [place] [address] 90460- 2062 Jul, Sarcoidosis D86.9 [facility] [id number] [place] [address] 75731- 5874 Jul, Left leg pain M79.605 [facility] [id number] [place] [address] 53486- 2111 Jul, Sarcoidosis D86.9 [facility] [id number] [place] [address] 68771- 7331 Jul, Post-traumatic stress disorder, unspecified F43.10 ; Major depressive disorder, recurrent, moderate F33.1 and Problems related to release from group home Z65.2 [facility] [id number] [place] [address] 37408- 2782 June, [facility] [id number] [place] [address] 58397 -5553 June, Sore throat J02.9 and BMI 40.0-44.9, adult Z68.41 [facility] [id number] [place] [address] 44080- 9444 June, [facility] [id number] [place] [address] 54889- 6143 June, [facility] [id number] [place] [address] 07124- 1309 June, [facility] [id number] [place] [address] 31756- 5461 June, Left leg pain M79.605 [facility] [id number] [place] [address] 74077- 4594 June, Sarcoidosis D86.9 [facility] [id number] [place] [address] 23346- 3520 June, [facility] [id number] [place] [address] 25878- 7719 June, [facility] [address], [place] [address]- 3051 June, Left leg pain M79.605 [facility] [address], [place] [address]- 6469 May, [facility] [id number] [address]- 6029 May, [facility] [id number] [place] [address] 78566- 2883 May, [facility] [id number] [place] [address] 10079- 9658 May, Left leg pain M79.605 [facility] [id number] [place] [address] 56588- 8074 May, Post-traumatic stress disorder, unspecified F43.10 ; Major depressive disorder, recurrent, moderate F33.1 and Problems related to release from group home Z65.2 [facility] [address], [place] [address] May, Chronic pain G89.29 ; Anxiety F41.9 ; Chest pain, unspecified type R07.9 and BMI 40.0-44.9, adult Z68.41 [facility] [address], [place] [address]- 5216 Apr, [facility] [id number] [place] [address] 56712- 9808 Apr, Left leg pain M79.605 [facility] [address], [place] [address]- 9251 Apr, Post-traumatic stress disorder, unspecified F43.10 ; Problems related to release from group home Z65.2 ; Anxiety F41.9 and BMI 40.0-44.9 , adult Z68.41 [facility] [address], [place] [address]- 3847 Apr, [place] [address] 13423- 7228 19 Apr, 2017 Left leg pain M79.[address] 59109- 9383 13 Apr, 2017 Post-traumatic stress disorder, unspecified F43.10 ; Major depressive disorder, recurrent, moderate F33.1 and Problems related to release from group home Z65.[address] 32254- 9926 12 Apr, [address] 92717- 5749 12 Apr, 2017 Chronic pain G89.29 ; 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 [address] 42056 -9588 10 Apr, 2017 Sore throat J02.9 and BMI 40.0-44.9, adult Z68.[address] 28484- 4265 02 Apr, 2017 Left leg pain M79.605 [facility] [address] [id number] Mar, Dental examination Z01.[address] 82050- 5405 Mar, [facility] [address] 57257 -0509 Mar, Cough R05 ; Viral gastroenteritis A08.4 and BMI 40.0-44.9, adult Z68.[address] 45654- 2719 Mar, Left leg pain M79.[address] 34106- 4812 Mar, Post-traumatic stress disorder, unspecified F43.10 ; Major depressive disorder, recurrent, moderate F33.1 and Problems related to release from group home Z65.2 [place] [id number] [place] [address] 61876- 7996 Feb, Left leg pain M79.605 [place] [id number] [place] [address] 73284- 9140 Feb, [place] [id number] [place] [address] 72115- 8501 Feb, BMI 40.0-44.9, adult Z68.41 ; Chronic pain syndrome G89.4 ; Migraine without aura and without status migrainosus, not intractable G43.009 ; Mitral valve prolapse I34.1 and 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 [place] [id number] [place] [address] 58501- 9222 Feb, Post-traumatic stress disorder, chronic F43.12 ; Anxiety F41.9 ; Problems related to release from group home Z65.2 and BMI 40.0-44.9, adult Z68.41 [place] [address] [place] [address] 35830- 4509 Feb, Post-traumatic stress disorder, unspecified F43.10 ; Major depressive disorder, recurrent, moderate F33.1 and Problems related to release from group home Z65.2 [place] [id number] [place] [address] 15085- 7959 Feb, Left leg pain M79.605 [place] [id number] [place] [address] 84784- 5707 Jan, Post-traumatic stress disorder, unspecified F43.10 ; Major depressive disorder, recurrent, moderate F33.1 and Problems related to release from group home Z65.2 [place] [id number] [place] [address] 03829- 6147 Jan, [place] [address] [place] [address]- 1149 Jan, [facility] [id number] [place] [address] 52886- 0523 Jan, Anxiety F41.9 [facility] [id number] [place] [address] 86582- 4131 13 Jan, 2017 Left leg pain M79.605 [facility] [id number] [place] [address] 40452- 0203 Dec, Left leg pain M79.605 [facility] [address] [place] [address] 48296- 7616 Dec, [place] [address] [place] [address] 18905- 5281 15 Dec, 2016 Post-traumatic stress disorder, unspecified F43.10 ; Major depressive disorder, recurrent, moderate F33.1 and Problems related to release from group home Z65.2 [place] [address] [place] [address] 37726- 9653 31 Nov, 2016 Chronic pain G89.29 and Anxiety F41.9 [place] [id number] [place] [address] 14467- 1275 24 Nov, 2016 Chronic pain G89.29 and Anxiety F41.9 [place] [address] [place] [address] 25221- 4794 16 Nov, 2016 Post-traumatic stress disorder, unspecified F43.10 ; Major depressive disorder, recurrent, moderate F33.1 and Problems related to release from group home Z65.2 [place] [address], [place] [address]- 2478 09 Nov, 2016 Other abnormal findings in specimens from other organs, systems and tissues R89.8 ; Other male erectile dysfunction N52.8 ; Body mass index (BMI) of 40.0-44.9 in adult Z68.41 and Morbid (severe) obesity due to excess calories E66.01 [place] [address] [place] [address] 86948- 9442 02 Nov, 2016 Post-traumatic stress disorder, unspecified F43.10 ; Major depressive disorder, recurrent, moderate F33.1 and Problems related to release from group home Z65.2 [facility] [id number] [address] 29 Oct, 2016 Dental examination Z01.20 [place] [id number] [place] [address] 51608- 3594 28 Oct, 2016 [facility] [id number] [place] [address] 02617- 2625 28 Oct, 2016 Encounter for immunization Z23 [place] [id number] [place] [address] 67562- 0131 Oct, Chronic pain G89.29 ; Anxiety F41.9 ; Arrhythmia as indication for cardiac pacemaker replacement I49.9 and Glaucoma H40.9 [place] [id number] [place] [address] 12184- 4204 Oct, Anxiety F41.9 ; Post-traumatic stress disorder, chronic F43.12 and Problems related to release from group home Z65.2 [place] [address] [place] [address] 85187- 1260 07 Oct, 2016 Post-traumatic stress disorder, unspecified F43.10 ; Major depressive disorder, recurrent, moderate F33.1 and Problems related to release from group home Z65.2 [facility] [id number] [place] [address] 45697- 1635 Sep, Chronic pain G89.29 and Anxiety F41.9 [place] [address] [place] [address] 14896- 4383 Sep, Post-traumatic stress disorder, unspecified F43.10 ; Major depressive disorder, recurrent, moderate F33.1 and Problems related to release from group home Z65.2 [place] [address] [place] [address] 37531- 2736 Sep, Post-traumatic stress disorder, unspecified F43.10 ; Major depressive disorder, recurrent, moderate F33.1 and Problems related to release from group home Z65.2 [place] [address] [place] [address] 51064- 0615 Sep, Chronic pain G89.29 [place] [address] [place] [address] 73249- 0933 Aug, Dental caries, unspecified K02.9 [place] [address] [place] [address] 94767- 8320 Aug, Sleep apnea, obstructive G47.33 ; Obesity E66.9 ; Chronic pain G89.29 ; HTN (hypertension) I10 ; Major depressive disorder, recurrent, moderate F33.1 ; Anxiety F41.9 ; Chronic tension headaches G44.229 ; Mitral valve prolapse I34.1 ; Arrhythmia as indication for cardiac pacemaker replacement I49.9 ; Dental caries, unspecified K02.9 ; Primary insomnia F51.01 and Hyperlipidemia E78.5 [place] [address] [place] [address] 08902- 4087 Aug, Post-traumatic stress disorder, unspecified F43.10 ; Major depressive disorder, recurrent, moderate F33.1 and Problems related to release from group home Z65.2 [place] [id number] [place] [address] 02901- 7768 Aug, Dental examination Z01.20 [facility] [id number] [place] [address] [id number] Aug, Dental examination Z01.20 [place] [address] [place] [address] 38469- 3925 Aug, Post-traumatic stress disorder, unspecified F43.10 ; Major depressive disorder, recurrent, moderate F33.1 and Problems related to release from group home Z65.2 [place] [address] [place] [address] 81725- 3600 Aug, Chronic pain G89.29 and Primary insomnia F51.01 [place] [id number] [place] [address] 64766- 9231 Jul, [place] [address], [place] [address]- 6236 Jul, [place] [address] [place] [address] 11059- 0305 Jul, Nausea R11.0 [place] [address] [place] [address] 94559- 0216 Jul, Arrhythmia as indication for cardiac pacemaker replacement I49.9 [place] [address] [place] [address] 56572- 1369 Jul, Post-traumatic stress disorder, unspecified F43.10 ; Major depressive disorder, recurrent, moderate F33.1 and Problems related to release from group home Z65.2 [place] [address] [place] [address] 29343- 4999 Jul, Anxiety F41.9 [place] [address] [place] [address] 60464- 6732 08 Jul, 2016 Chronic pain G89.29 [place] [id number] [place] [address] 01397- 0815 02 Jul, 2016 Sleep apnea, obstructive G47.33 ; Hyperlipidemia E78.5 ; Chronic pain G89.29 ; Blindness and low vision H54.10 ; Major depressive disorder, recurrent, moderate F33.1 ; Anxiety F41.9 ; Mitral valve prolapse I34.1 ; Arrhythmia as indication for cardiac pacemaker replacement I49.9 ; Primary insomnia F51.01 ; Bilateral headaches R51 and Environmental allergies Z91.09 [place] [address] [place] [address] 74268- 8567 Jul, Post-traumatic stress disorder, unspecified F43.10 ; Major depressive disorder, recurrent, moderate F33.1 and Problems related to release from group home Z65.2 [place] [address] [place] [address] 05448- 7921 June, Post-traumatic stress disorder, chronic F43.12 ; Anxiety F41.9 ; Problems related to release from group home Z65.2 ; Sleep apnea, obstructive G47.33 and Primary insomnia F51.01 [place] [id number] [place] [address] 81434- 2663 June, [place] [id number] [place] [address] 06772- 8679 June, [place] [address] 94612- 9221 June, [place] [address] 64831- 8955 June, Chronic pain G89.[address] 01482- 4689 June, Chronic pain G89.[address] 09461- 1877 June, Lipoma of left lower extremity D17.24 ; Open wound T14.8 and Swelling of left lower extremity M79.89 [place] [id number] [place] [address] 92846- 0506 June, Post-traumatic stress disorder, unspecified F43.10 ; Major depressive disorder, recurrent, moderate F33.1 and Problems related to release from group home Z65.2 [place] [id number] [place] [address] 43881- 6143 May, Lipoma of left lower extremity D17.24 ; Major depressive disorder, recurrent, moderate F33.1 ; Sleep apnea, obstructive G47.33 ; Hyperlipidemia E78.5 ; Obesity E66.9 ; HTN (hypertension) I10 ; Glaucoma H40.9 ; CAD (coronary artery disease) I25.10 ; Chronic tension headaches G44.229 ; Chronic pain G89.29 ; Anxiety F41.9 ; Nausea R11.0 and Primary insomnia F51.01 [place] [id number] [place] [address] 53936- 9654 May, [place] [address] [address]- 9848 May, Chronic pain G89.29 [place] [id number] [place] [address] 47439- 9912 May, [place] [id number] [place] [address] 25620- 7278 31 Apr, 2016 Post-traumatic stress disorder, unspecified F43.10 ; Major depressive disorder, recurrent, moderate F33.1 and Problems related to release from group home Z65.2 [place] [address] [place] [address] 22393- 7092 28 Apr, 2016 Primary insomnia F51.01 ; Post-traumatic stress disorder, chronic F43.12 and Problems related to release from group home Z65.2 [place] [id number] [place] [address] 46720- 0276 17 Apr, 2016 Post-traumatic stress disorder, unspecified F43.10 ; Major depressive disorder, recurrent, moderate F33.1 and Problems related to release from group home Z65.2 [place] [id number] [place] [address] 91959- 8797 Apr, [place] [id number] [place] [address] 93902- 7244 Apr, Sleep apnea, obstructive G47.33 ; Chronic pain G89.29 ; HTN (hypertension) I10 ; Mitral valve prolapse I34.1 ; Shoulder pain, left M25.512 ; Arrhythmia as indication for cardiac pacemaker replacement I49.9 ; Glaucoma H40.9 ; Bilateral headaches R51 ; Environmental allergies Z91.09 ; Primary insomnia F51.01 and Nausea R11.0 [place] [id number] [place] [address] 54141- 9456 Apr, [place] [address] [place] [address] 20416- 8236 Apr, [place] [address] [place] [address] 60075- 3338 Apr, Post-traumatic stress disorder, unspecified F43.10 ; Major depressive disorder, recurrent, moderate F33.1 and Problems related to release from group home Z65.2 [address] [place] [address] 68159- 7577 Apr, HTN (hypertension) I10 [place] [id number] [place] [address] 21401- 1296 Apr, HTN (hypertension) I10 [place] [id number] [place] [address] 21417- 6430 Mar, Chronic pain G89.29 ; Primary insomnia F51.01 and Problems related to release from group home Z65.2 [place] [id number] [place] [address] 86065- 5439 07 Mar, 2016 Post-traumatic stress disorder, unspecified F43.10 ; Major depressive disorder, recurrent, moderate F33.1 and Problems related to release from group home Z65.2 [place] [id number] [place] [address] 17155- 7345 Feb, Post-traumatic stress disorder, unspecified F43.10 ; Major depressive disorder, recurrent, moderate F33.1 and Problems related to release from group home Z65.[id number] [place] [address] 63884- 9438 Feb, Chronic tension headaches G44.229 [id number] [place] [address] 59815- 4049 Feb, Sleep apnea, obstructive G47.33 ; Obesity [...] I49.9 and Primary insomnia F51.01 [place] [id number] [address] Feb, Post-traumatic stress disorder, unspecified F43.10 and Chronic pain G89.29 [facility] [id number] [address] Feb, [facility] [id number] [id number] Feb, Dental caries K02.9 [facility] [id number] [place] [address] 81410- 8358 Feb, [facility] [id number] [place] [address] 48572- 0892 Feb, Post-traumatic stress disorder, unspecified F43.10 ; Major depressive disorder, recurrent, moderate F33.1 and Problems related to release from group home Z65.2 [facility] [id number] [place] [address] 13804- 0213 Jan, Sleep apnea, obstructive G47.33 and Chronic pain G89.29 [facility] [address] [address] 4418 Jan, [facility] [id number] [place] [address] 51513- 4551 Jan, Dental examination Z01.20 [facility] [address] [address] 0323 Jan, [facility] [address] [address] 4322 Jan, [facility] [address] [address] 1354 Dec, Post-traumatic stress disorder, unspecified F43.10 ; Major depressive disorder, recurrent, moderate F33.1 and Problems related to release from group home Z65.2 [facility] [address] [address] 3[address] Dec, Encounter for immunization Z23 ; Problems related to release from group home Z65.2 ; Sleep apnea, obstructive G47.33 and Post-traumatic stress disorder, chronic F43.12 [facility] [facility] [id number] [place] [address] 87320- 6460 Dec, Sleep apnea, obstructive G47.33 ; Hyperlipidemia E78.5 ; Chronic pain G89.29 ; Glaucoma H40.9 ; HTN (hypertension) I10 ; Post-traumatic stress disorder, unspecified F43.10 ; Anxiety F41.9 ; Chronic tension headaches G44.229 ; Mitral valve prolapse I34.1 and CAD (coronary artery disease) I25.10 [facility] [id number] [place] [address] 09186- 1928 Dec, Post-traumatic stress disorder, unspecified F43.10 ; Major depressive disorder, recurrent, moderate F33.1 and Problems related to release from group home Z65.2 [facility] [id number] [place] [address] 06553- 8041 Nov, Chronic pain G89.29 [facility] [id number] [place] [address] 76537- 0594 Nov, Post-traumatic stress disorder, unspecified F43.10 ; Major depressive disorder, recurrent, moderate F33.1 and Problems related to release from group home Z65.2 [facility] [id number] [place] [address] 37816- 9357 Oct, [facility] [id number] [place] [address] 82130- 0601 Oct, [facility] [id number] [place] [address] 94132- 6543 16 Oct, 2015 Post-traumatic stress disorder, unspecified F43.10 ; Major depressive disorder, recurrent, moderate F33.1 and Problems related to release from group home Z65.2 [facility] [id number] [place] [address] 88164- 1779 08 Oct, 2015 [facility] [id number] [place] [address] 63699- 3302 Oct, Environmental allergies Z91.09 ; Cough R05 and Open-angle glaucoma of both eyes H40.10X0 [place] [address] 29124- 1727 Sep, [facility] [id number] [place] [address] 64138- 0483 Sep, Post-traumatic stress disorder, unspecified F43.10 ; Major depressive disorder, recurrent, moderate F33.1 and Problems related to release from group home Z65.2 [facility] [facility] [address] 02275- 0138 Sep, Chronic pain G89.29 [facility] [facility] [address] 99098- 8551 Sep, Other chronic pain G89.29 ; Pain in right shoulder M25.511 and Pain in left shoulder M25.512 [facility] [address] 24911- 6362 Sep, [facility] [facility] [address] 13001- 8086 Sep, [facility] [address] 24528- 8233 Sep, [facility] [id number] [place] [address] [id number] Aug, Dental examination Z01.20 [facility] [id number] [place] [address] 05156- 5387 Aug, Post-traumatic stress disorder, unspecified F43.10 ; Open- angle glaucoma of both eyes H40.10X0 and Problems related to release from group home Z65.2 [facility] [id number] [place] [address] 95411- 0870 Aug, [facility] [id number] [place] [address] 10546- 6965 Aug, Sleep apnea, obstructive G47.33 ; Obesity E66.9 ; Hyperlipidemia E78.5 ; Bilateral headaches R51 ; HTN (hypertension) I10 ; Post- traumatic stress disorder, unspecified F43.10 ; Anxiety F41.9 ; Neuropathy G62.9 ; Glaucoma H40.9 and Chronic pain G89.29 [facility] [id number] [id number] Aug, Encounter for dental examination Z01.20 [facility] [id number] [place] [address] 22472- 8842 Aug, Post-traumatic stress disorder, unspecified F43.10 ; Major depressive disorder, recurrent, moderate F33.1 and Problems related to release from group home Z65.2 [facility] [id number] [place] [address] 59752- 6435 Aug, [facility] [id number] [place] [address] 24399- 6945 Jul, [facility] [id number] [place] [address] 20110- 6291 Jul, Post-traumatic stress disorder, unspecified F43.10 and Major depressive disorder, recurrent, moderate F33.1 [facility] [id number] [place] [address] 13786- 3833 Jul, [facility] [id number] [place] [address] 70070- 2119 Jul, [facility] [id number] [place] [address] 96457- 1905 Jul, Chronic pain G89.29 [facility] [id number] [place] [address] 98352- 2534 June, Post-traumatic stress disorder, unspecified F43.10 and Major depressive disorder, recurrent, moderate F33.1 [facility] [id number] [place] [address] 83760- 6349 June, [facility] [id number] [place] [address] 79456- 2632 June, Chronic pain G89.29 [facility] [address] [address]- 7646 June, Post-traumatic stress disorder, unspecified F43.10 and Major depressive disorder, recurrent, moderate F33.1 [facility] [address] [address]- 8652 May, Post-traumatic stress disorder, unspecified F43.10 and Major depressive disorder, recurrent, moderate F33.1 [facility] [id number] [address]- 9483 May, [facility] [id number] [place] [address] 60832- 8566 08 May, 2015 [facility] [id number] [place] [address] 36147- 4897 May, [facility] [id number] [place] [address] 88881- 5271 Apr, [facility] [id number] [place] [address] 41548- 4564 31 Apr, 2015 Post-traumatic stress disorder, unspecified F43.10 and Sleep apnea, obstructive G47.33 [facility] [address], [place] [address]- 6444 31 Apr, 2015 [facility] [id number] [place] [address] 33536- 0307 Apr, Shoulder pain, left M25.512 [facility] [address], [place] [address] 2546 18 Apr, 2015 Post-traumatic stress disorder, unspecified F43.10 and Major depressive disorder, recurrent, moderate F33.1 [facility] [address] [address] 2216 17 Apr, 2015 [facility] [address], [place] [address]- 0516 11 Apr, 2015 [facility] [id number] [place] [address] 25175- 2793 Apr, [facility] [id number] [place] [address] 05553- 1651 Apr, Left shoulder pain M25.512 [facility] [id number] [place] [address] 34544- 6246 Mar, [facility] [id number] [place] [address] 78506- 4257 Mar, [facility] [id number] [place] [address] 24496- 9373 Mar, [facility] [id number] [place] [address] 17663- 7029 Mar, Sleep apnea, obstructive G47.33 ; Obesity E66.9 ; Chronic pain G89.29 ; Hyperlipidemia E78.5 ; HTN (hypertension) I10 ; Blindness and low vision H54.10 ; Major depressive disorder, recurrent, moderate F33.1 and Anxiety F41.9 [facility] [id number] [place] [address] 01948- 8885 Mar, [facility] [id number] [place] [address] 40303- 1293 Mar, Post-traumatic stress disorder, unspecified F43.10 and Major depressive disorder, recurrent, moderate F33.1 [facility] [id number] [place] [address] 67491- 7698 Mar, [facility] [facility] [id number] [place] [address] 39907- 9567 Mar, HTN (hypertension) I10 ; Blindness and low vision H54.10 ; Obesity E66.9 ; Hyperlipidemia E78.5 ; Glaucoma H40.9 ; Chronic pain G89.29 and CAD (coronary artery disease) I25.10 [place] [id number] [place] [address] 49578- 1076 Feb, [facility] [id number] [place] [address] 91856- 1954 Feb, Post-traumatic stress disorder, unspecified F43.10 ; Obesity E66.9 ; Sleep apnea, obstructive G47.33 and Open-angle glaucoma of both eyes H40.10X0 [facility] [id number] [place] [address] 30117- 2652 Feb, Post-traumatic stress disorder, unspecified F43.10 and Major depressive disorder, recurrent, moderate F33.1 [place] [id number] [place] [address] 15188- 5744 Feb, [address] 72053- 5681 Feb, [place] [id number] [place] [address] 34002- 4894 Feb, HTN (hypertension) I10 ; Post-traumatic stress disorder, unspecified F43.10 ; Blindness and low vision H54.10 ; Obesity E66.9 ; Hyperlipidemia E78.5 ; Chronic pain G89.29 ; Glaucoma H40.9 ; Mitral valve prolapse I34.1 and Bilateral headaches R51 [place] [id number] [place] [address] 80492- 7462 Feb, [place] [id number] [place] [address] 79094- 3238 Feb, Post-traumatic stress disorder, unspecified F43.10 and Major depressive disorder, recurrent, moderate F33.1 [place] [id number] [place] [address] 44471- 2847 Feb, [address] 41385- 4403 Feb, [facility] [facility] [id number] [place] [address] 46393- 6647 Jan, [place] [address] 50296- 7963 Jan, [facility] [id number] [place] [address] 64085- 9490 Jan, Obesity E66.9 ; HTN (hypertension) I10 ; Blindness and low vision H54.10 ; Major depressive disorder, recurrent, moderate F33.1 ; Glaucoma H40.9 ; Hyperlipidemia E78.5 ; Sleep apnea, obstructive G47.33 ; Chronic pain G89.29 ; Anxiety F41.9 ; Chronic tension headaches G44.229 and Cough R05 [place] [address] 70030- 7949 Jan, [address] 35369- 1480 Jan, [place] [address] 51330- 2451 Jan, Post-traumatic stress disorder, unspecified F43.10 ; Obesity E66.9 ; Sleep apnea, obstructive G47.33 and Open-angle glaucoma of both eyes H40.10X0 [place] [id number] [place] [address] 67220- 9931 Jan, [address] 10116- 5542 Jan, Post-traumatic stress disorder, unspecified F43.10 and Major depressive disorder, recurrent, moderate F33.1 [place] [id number] [place] [address] 99943- 8835 Dec, [facility] [id number] [place] [address] 04156- 4628 Dec, Sleep apnea, obstructive G47.33 ; Obesity E66.9 ; Hyperlipidemia E78.5 ; Glaucoma H40.9 ; Chronic pain G89.29 ; HTN (hypertension ) I10 ; Blindness and low vision H54.10 ; Anxiety F41.9 and CAD (coronary artery disease) I25.10 [place] [id number] [place] [address] 92208- 7897 Nov, [facility] [id number] [place] [address] 19651- 1965 Nov, [facility] [address] 07431- 6726 Nov, [facility] [id number] [place] [address] 15839- 3858 Nov, [facility] [address] 95211- 4529 Nov, [facility] [address] 17885- 5056 Nov, Encounter for immunization Z23 ; Sleep apnea, obstructive G47.33 ; Obesity E66.9 ; Hyperlipidemia E78.5 ; Glaucoma H40.9 ; Chronic pain G89.29 ; Anxiety F41.9 ; Chronic tension headaches G44.229 and HTN (hypertension ) I10 [facility] [id number] [place] [address] 91643- 2240 Nov, [facility] [id number] [place] [address] 51767- 3752 Nov, [facility] [id number] [place] [address] 62901- 3147 Nov, Dizziness R42 [facility] [id number] [place] [address] 15766- 8084 Nov, [facility] [id number] [place] [address] 09954- 8422 Oct, [facility] [id number] [place] [address] 14001- 1044 Oct, [facility] [id number] [place] [address] 68245- 6549 Oct, [facility] [id number] [place] [address] 41060- 9010 Oct, [facility] [address] 22013- 7926 Oct, Dizziness 780.4 ; Essential hypertension 401.9 ; Obesity 278.00 ; Hyperlipidemia 272.4 ; Chronic pain 338.29 ; Glaucoma 365.9 and Anxiety 300.00 [facility] [address]- 9668 Oct, Essential hypertension 401.9 ; Hyperlipidemia 272.4 ; Glaucoma 365.9 ; Obesity 278.00 ; Chronic pain 338.29 and Allergy to insects V15.06 [facility] [address], [place] [address]- 3848 Sep, [facility] [id number] [place] [address] 94198- 6130 Sep, [facility] [id number] [place] [address] 42157- 1757 Sep, [place] [id number] [place] [address] 26109- 8205 Sep, [facility] [id number] [place] [address] 32938- 0388 Aug, Essential hypertension 401.9 ; Obesity 278.00 ; Hyperlipidemia 272.4 ; Glaucoma 365.9 ; Lipoma 214.9 ; Mitral valve prolapse 424.0 ; Angina at rest 413.9 ; Lymphedema 457.1 and Chronic pain 338.29 IMMUNIZATIONS No Known Immunizations SOCIAL HISTORY Never Assessed REASON FOR VISIT Controlled Med Refill-06/22/17 PLAN OF CARE VITAL SIGNS MEDICATIONS Medication Instructions Dosage Frequency Start Date End Date Duration Status Hydrocodone-Acetaminophen 7.5-325 MG Orally 4 times a day 1 tablet 6h June, Active RESULTS No Results PROCEDURES No Known [...]
--- OUTSIDE RECORDS SUMMARY | 2018-02-04 14:46 | XMS REPORT ---
Author Author DALJIT DAMON Organization [facility] Address [address] [place] [address] Care Team Providers Care Lime Puller Name Role Phone MARISOL DALJIT Unavailable PROBLEMS Type Condition ICD9-CM Code [id number] Code Onset Dates Condition Status SNOMED Code Problem Primary insomnia F51.01 Active 5670632 Problem Other male erectile dysfunction N52.8 Active 941033620 Problem Morbid (severe) obesity due to excess calories E66.01 Active 180040067 Problem Sarcoidosis D86.9 Active 59517710 Problem Blindness and low vision H54.10 Active 455669693 Problem Problems related to release from correction Z65.2 Active 996032218122392 Problem Myocarditis, unspecified chronicity, 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 Active 33447257 Problem Chronic pain G89.29 Active 50920023 Problem 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 Active 664876785 Problem Body mass index (BMI) of 40.0-44.9 in adult Z68.41 Active 938463287 Problem Chronic pain syndrome G89.4 Active 365635682 Problem Migraine without aura and without status migrainosus, not intractable G43.009 Active 481438479 Problem Anxiety F41.9 Active 86170133 Problem Major depressive disorder, recurrent, moderate F33.1 Active 06671757 Problem HTN (hypertension) I10 Active 35169391 Problem Chronic tension headaches G44.229 Active 285370113 Problem CAD (coronary artery disease) I25.10 Active 38395532 Problem Post-traumatic stress disorder, chronic F43.12 Active 359071428 Problem Hyperlipidemia E78.5 Active 31028041 Problem Open-angle glaucoma of both eyes H40.10X0 Active 47870201 Problem Environmental allergies Z91.09 Active 704504997 Problem Sleep apnea, obstructive G47.33 Active 91111236 Problem Mitral valve prolapse I34.1 Active 319177720 Problem Arrhythmia as indication for cardiac pacemaker replacement I49.9 Active 63611953 ALLERGIES No Information ENCOUNTERS Encounter Location Date Diagnosis [facility] [address] [address] Oct, [facility] [id number] [place] [address] 21299- 1875 Oct, [facility] [address] [address] Oct, [facility] [id number] [place] [address] 96830- 4573 Sep, [facility] [address] [address] 7[address] Sep, [facility] [id number] [place] [address] 09820- 7539 Sep, [facility] [id number] [place] [address] 74814- 3422 Sep, [facility] [id number] [place] [address] 46984- 2172 Sep, [facility] [address] [address] Sep, [facility] [address] [place] [address] 18099- 0472 Sep, Left leg pain M79.605 [facility] [address] [address] 9[address] Sep, HTN (hypertension) I10 [facility] [address] [address] 1548 Sep, [facility] [address] [address] Sep, Post-traumatic stress disorder, unspecified F43.10 ; Major depressive disorder, recurrent, moderate F33.1 and Problems related to release from correction Z65.2 [facility] [address] [address] Sep, [place] [address] [place] [address] 05909- 0868 Aug, [place] [address] 24254- 5408 Aug, Sarcoidosis D86.9 [facility] [id number] [place] [address] 47871- 7351 Aug, Sarcoidosis D86.9 [facility] [id number] [place] [address] 327218- 9422 Aug, HTN (hypertension) I10 [place] [address] 37254- 2801 Aug, Post-traumatic stress disorder, unspecified F43.10 ; Major depressive disorder, recurrent, moderate F33.1 and Problems related to release from correction Z65.2 [facility] [address] 77208- 8123 Aug, [facility] [id number] [place] [address] 37699- 8140 Aug, Left leg pain M79.605 [facility] [id number] [place] [address] 47519- 2806 Jul, Post-traumatic stress disorder, chronic F43.12 ; Anxiety F41.9 ; Problems related to release from correction Z65.2 and BMI 40.0-44.9, adult Z68.41 [facility] [id number] [place] [address] 58028- 6526 Jul, HTN (hypertension) I10 ; Body mass index (BMI) of 40.0-44.9 in adult Z68.41 and Acute swimmer''s ear of both sides H60.333 [facility] [id number] [place] [address] 45208- 8376 Jul, Glaucoma H40.9 [facility] [id number] [place] [address] 49138- 0694 14 Jul, 2017 [facility] [address] [place] [address] 16834- 7512 Jul, Sarcoidosis D86.9 [facility] [id number] [place] [address] 91760- 5619 Jul, Left leg pain M79.605 [facility] [id number] [place] [address] 41016- 9622 Jul, Sarcoidosis D86.9 [facility] [id number] [place] [address] 01501- 6636 Jul, Post-traumatic stress disorder, unspecified F43.10 ; Major depressive disorder, recurrent, moderate F33.1 and Problems related to release from correction Z65.2 [facility] [id number] [place] [address] 71500- 6948 June, [facility] [id number] [place] [address] 61508 -3382 June, Sore throat J02.9 and BMI 40.0-44.9, adult Z68.41 [facility] [id number] [place] [address] 26414- 5601 June, [facility] [id number] [place] [address] 09321- 7069 June, [facility] [id number] [place] [address] 49364- 9430 June, [facility] [id number] [place] [address] 10528- 6548 June, Left leg pain M79.605 [facility] [id number] [place] [address] 37267- 3478 June, Sarcoidosis D86.9 [facility] [id number] [place] [address] 39663- 9779 June, [facility] [id number] [place] [address] 30635- 2848 June, [facility] [address] [address]- 6849 June, Left leg pain M79.605 [facility] [address] [address]- 9588 May, [facility] [id number] [address]- 0337 May, [facility] [address] [place] [address] 33866- 9057 May, [facility] [id number] [place] [address] 60626- 4598 May, Left leg pain M79.605 [facility] [address] [place] [address] 44400- 3516 May, Post-traumatic stress disorder, unspecified F43.10 ; Major depressive disorder, recurrent, moderate F33.1 and Problems related to release from correction Z65.2 [facility] [address] [address]- 8811 May, Chronic pain G89.29 ; Anxiety F41.9 ; Chest pain, unspecified type R07.9 and BMI 40.0-44.9, adult Z68.41 [facility] [address] [address]- 7364 Apr, [facility] [address] [place] [address] 07079- 0487 Apr, Left leg pain M79.605 [facility] [address] [address]- 6548 Apr, Post-traumatic stress disorder, unspecified F43.10 ; Problems related to release from correction Z65.2 ; Anxiety F41.9 and BMI 40.0-44.9 , adult Z68.41 [facility] [address] [address]- 2048 Apr, [place] [address] 27163- 9173 19 Apr, 2017 Left leg pain M79.[address] 40532- 9906 13 Apr, 2017 Post-traumatic stress disorder, unspecified F43.10 ; Major depressive disorder, recurrent, moderate F33.1 and Problems related to release from correction Z65.[address] 34000- 2765 12 Apr, [address] 49475- 2448 12 Apr, 2017 Chronic pain G89.29 ; 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 [address] 8[address] -0012 10 Apr, 2017 Sore throat J02.9 and BMI 40.0-44.9, adult Z68.[address] 48993- 8297 02 Apr, 2017 Left leg pain M79.605 [facility] [address] [id number] Mar, Dental examination Z01.[address] 53777- 2694 Mar, [facility] [address] 13055 -0682 Mar, Cough R05 ; Viral gastroenteritis A08.4 and BMI 40.0-44.9, adult Z68.[address] 42473- 9551 Mar, Left leg pain M79.[address] 06031- 2813 Mar, Post-traumatic stress disorder, unspecified F43.10 ; Major depressive disorder, recurrent, moderate F33.1 and Problems related to release from correction Z65.2 [place] [address] [place] [address] 45855- 0268 Feb, Left leg pain M79.605 [facility] [id number] [place] [address] 86124- 1858 Feb, [place] [id number] [place] [address] 98580- 6767 Feb, BMI 40.0-44.9, adult Z68.41 ; Chronic pain syndrome G89.4 ; Migraine without aura and without status migrainosus, not intractable G43.009 ; Mitral valve prolapse I34.1 and 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 [facility] [id number] [place] [address] 72265- 7062 Feb, Post-traumatic stress disorder, chronic F43.12 ; Anxiety F41.9 ; Problems related to release from correction Z65.2 and BMI 40.0-44.9, adult Z68.41 [place] [address] [place] [address] 55101- 7465 Feb, Post-traumatic stress disorder, unspecified F43.10 ; Major depressive disorder, recurrent, moderate F33.1 and Problems related to release from correction Z65.2 [place] [address] [place] [address] 02879- 3473 Feb, Left leg pain M79.605 [facility] [id number] [place] [address] 21579- 7595 Jan, Post-traumatic stress disorder, unspecified F43.10 ; Major depressive disorder, recurrent, moderate F33.1 and Problems related to release from correction Z65.2 [place] [address] [place] [address] 18030- 4164 Jan, [place] [address] [address]- 2535 Jan, [facility] [address] [place] [address] 84238- 6118 Jan, Anxiety F41.9 [facility] [address] [place] [address] 46264- 3535 13 Jan, 2017 Left leg pain M79.605 [facility] [id number] [place] [address] 49513- 5035 Dec, Left leg pain M79.605 [facility] [address] [place] [address] 24139- 3847 Dec, [place] [address] [place] [address] 16881- 6200 15 Dec, 2016 Post-traumatic stress disorder, unspecified F43.10 ; Major depressive disorder, recurrent, moderate F33.1 and Problems related to release from correction Z65.2 [place] [address] [place] [address] 53438- 4127 31 Nov, 2016 Chronic pain G89.29 and Anxiety F41.9 [facility] [id number] [place] [address] 14004- 1688 24 Nov, 2016 Chronic pain G89.29 and Anxiety F41.9 [facility] [address] [place] [address] 49852- 2508 16 Nov, 2016 Post-traumatic stress disorder, unspecified F43.10 ; Major depressive disorder, recurrent, moderate F33.1 and Problems related to release from correction Z65.2 [facility] [address] [address]- 3177 09 Nov, 2016 Other abnormal findings in specimens from other organs, systems and tissues R89.8 ; Other male erectile dysfunction N52.8 ; Body mass index (BMI) of 40.0-44.9 in adult Z68.41 and Morbid (severe) obesity due to excess calories E66.01 [facility] [address] [place] [address] 81363- 1001 02 Nov, 2016 Post-traumatic stress disorder, unspecified F43.10 ; Major depressive disorder, recurrent, moderate F33.1 and Problems related to release from correction Z65.2 [facility] [id number] [address] 29 Oct, 2016 Dental examination Z01.20 [facility] [id number] [place] [address] 58835- 2287 28 Oct, 2016 [facility] [id number] [place] [address] 63055- 7846 28 Oct, 2016 Encounter for immunization Z23 [facility] [id number] [place] [address] 13307- 6434 Oct, Chronic pain G89.29 ; Anxiety F41.9 ; Arrhythmia as indication for cardiac pacemaker replacement I49.9 and Glaucoma H40.9 [facility] [id number] [place] [address] 79401- 4813 Oct, Anxiety F41.9 ; Post-traumatic stress disorder, chronic F43.12 and Problems related to release from correction Z65.2 [facility] [place] [id number] [place] [address] 04662- 7056 07 Oct, 2016 Post-traumatic stress disorder, unspecified F43.10 ; Major depressive disorder, recurrent, moderate F33.1 and Problems related to release from correction Z65.2 [facility] [address] [place] [address] 56682- 8427 Sep, Chronic pain G89.29 and Anxiety F41.9 [facility] [address] [place] [address] 46060- 3376 Sep, Post-traumatic stress disorder, unspecified F43.10 ; Major depressive disorder, recurrent, moderate F33.1 and Problems related to release from correction Z65.2 [facility] [address] [place] [address] 55789- 3266 Sep, Post-traumatic stress disorder, unspecified F43.10 ; Major depressive disorder, recurrent, moderate F33.1 and Problems related to release from correction Z65.2 [facility] [id number] [place] [address] 07387- 9350 Sep, Chronic pain G89.29 [facility] [place] [id number] [place] [address] 90996- 3188 Aug, Dental caries, unspecified K02.9 [facility] [id number] [place] [address] 48984- 4691 Aug, Sleep apnea, obstructive G47.33 ; Obesity E66.9 ; Chronic pain G89.29 ; HTN (hypertension) I10 ; Major depressive disorder, recurrent, moderate F33.1 ; Anxiety F41.9 ; Chronic tension headaches G44.229 ; Mitral valve prolapse I34.1 ; Arrhythmia as indication for cardiac pacemaker replacement I49.9 ; Dental caries, unspecified K02.9 ; Primary insomnia F51.01 and Hyperlipidemia E78.5 [facility] [place] [id number] [place] [address] 65335- 4290 Aug, Post-traumatic stress disorder, unspecified F43.10 ; Major depressive disorder, recurrent, moderate F33.1 and Problems related to release from correction Z65.2 [facility] [place] [id number] [place] [address] 22198- 7988 Aug, Dental examination Z01.20 [facility] [id number] [place] [address] [id number] Aug, Dental examination Z01.20 [place] [id number] [place] [address] 66755- 3589 Aug, Post-traumatic stress disorder, unspecified F43.10 ; Major depressive disorder, recurrent, moderate F33.1 and Problems related to release from correction Z65.2 [facility] [id number] [place] [address] 08855- 1130 Aug, Chronic pain G89.29 and Primary insomnia F51.01 [facility] [id number] [place] [address] 39626- 8337 Jul, [place] [address] [address]- 3294 Jul, [facility] [id number] [place] [address] 65807- 7206 Jul, Nausea R11.0 [facility] [place] [id number] [place] [address] 13591- 8342 Jul, Arrhythmia as indication for cardiac pacemaker replacement I49.9 [facility] [id number] [place] [address] 27993- 0479 Jul, Post-traumatic stress disorder, unspecified F43.10 ; Major depressive disorder, recurrent, moderate F33.1 and Problems related to release from correction Z65.2 [facility] [id number] [place] [address] 20554- 4770 Jul, Anxiety F41.9 [facility] [id number] [place] [address] 63809- 4336 08 Jul, 2016 Chronic pain G89.29 [place] [address] [place] [address] 64007- 9420 02 Jul, 2016 Sleep apnea, obstructive G47.33 ; Hyperlipidemia E78.5 ; Chronic pain G89.29 ; Blindness and low vision H54.10 ; Major depressive disorder, recurrent, moderate F33.1 ; Anxiety F41.9 ; Mitral valve prolapse I34.1 ; Arrhythmia as indication for cardiac pacemaker replacement I49.9 ; Primary insomnia F51.01 ; Bilateral headaches R51 and Environmental allergies Z91.09 [place] [address] [place] [address] 06698- 4514 Jul, Post-traumatic stress disorder, unspecified F43.10 ; Major depressive disorder, recurrent, moderate F33.1 and Problems related to release from correction Z65.2 [place] [address] [place] [address] 43117- 7099 June, Post-traumatic stress disorder, chronic F43.12 ; Anxiety F41.9 ; Problems related to release from correction Z65.2 ; Sleep apnea, obstructive G47.33 and Primary insomnia F51.01 [place] [id number] [place] [address] 39107- 6083 June, [place] [id number] [place] [address] 74853- 0945 June, [place] [address] 43046- 2136 June, [place] [address] 89690- 1272 June, Chronic pain G89.[address] 52705- 5575 June, Chronic pain G89.[address] 26912- 7739 June, Lipoma of left lower extremity D17.24 ; Open wound T14.8 and Swelling of left lower extremity M79.89 [place] [address] [place] [address] 90663- 5544 June, Post-traumatic stress disorder, unspecified F43.10 ; Major depressive disorder, recurrent, moderate F33.1 and Problems related to release from correction Z65.2 [facility] [id number] [place] [address] 90405- 0238 May, Lipoma of left lower extremity D17.24 ; Major depressive disorder, recurrent, moderate F33.1 ; Sleep apnea, obstructive G47.33 ; Hyperlipidemia E78.5 ; Obesity E66.9 ; HTN (hypertension) I10 ; Glaucoma H40.9 ; CAD (coronary artery disease) I25.10 ; Chronic tension headaches G44.229 ; Chronic pain G89.29 ; Anxiety F41.9 ; Nausea R11.0 and Primary insomnia F51.01 [place] [id number] [place] [address] 85552- 1054 May, [place] [address] [address]- 0459 May, Chronic pain G89.29 [facility] [id number] [place] [address] 42382- 2566 May, [place] [id number] [place] [address] 28365- 1208 31 Apr, 2016 Post-traumatic stress disorder, unspecified F43.10 ; Major depressive disorder, recurrent, moderate F33.1 and Problems related to release from correction Z65.2 [place] [id number] [place] [address] 62541- 3359 28 Apr, 2016 Primary insomnia F51.01 ; Post-traumatic stress disorder, chronic F43.12 and Problems related to release from correction Z65.2 [facility] [id number] [place] [address] 27353- 6210 17 Apr, 2016 Post-traumatic stress disorder, unspecified F43.10 ; Major depressive disorder, recurrent, moderate F33.1 and Problems related to release from correction Z65.2 [facility] [id number] [place] [address] 07488- 8812 Apr, [place] [address] [place] [address] 40885- 7970 Apr, Sleep apnea, obstructive G47.33 ; Chronic pain G89.29 ; HTN (hypertension) I10 ; Mitral valve prolapse I34.1 ; Shoulder pain, left M25.512 ; Arrhythmia as indication for cardiac pacemaker replacement I49.9 ; Glaucoma H40.9 ; Bilateral headaches R51 ; Environmental allergies Z91.09 ; Primary insomnia F51.01 and Nausea R11.0 [place] [id number] [place] [address] 23869- 8765 Apr, [place] [id number] [place] [address] 42773- 7258 Apr, [place] [id number] [place] [address] 09510- 3427 Apr, Post-traumatic stress disorder, unspecified F43.10 ; Major depressive disorder, recurrent, moderate F33.1 and Problems related to release from correction Z65.2 [address] [place] [address] 27832- 4913 Apr, HTN (hypertension) I10 [place] [address] [place] [address] 92802- 6848 Apr, HTN (hypertension) I10 [place] [id number] [place] [address] 71107- 6484 Mar, Chronic pain G89.29 ; Primary insomnia F51.01 and Problems related to release from correction Z65.2 [place] [address] [place] [address] 22198- 1597 07 Mar, 2016 Post-traumatic stress disorder, unspecified F43.10 ; Major depressive disorder, recurrent, moderate F33.1 and Problems related to release from correction Z65.2 [place] [address] [place] [address] 69098- 3997 Feb, Post-traumatic stress disorder, unspecified F43.10 ; Major depressive disorder, recurrent, moderate F33.1 and Problems related to release from correction Z65.2 [id number] [place] [address]- [address]33 Feb, Chronic tension headaches G44.229 [id number] [place] [address] 7[address]- 1190 Feb, Sleep apnea, obstructive G47.33 ; Obesity [...] pacemaker replacement I49.9 and Primary insomnia F51.01 [place] [id number] [address] Feb, Post-traumatic stress disorder, unspecified F43.10 and Chronic pain G89.29 [facility] [id number] [address] Feb, [facility] [id number] [id number] Feb, Dental caries K02.9 [facility] [id number] [place] [address] 84[address]- [address] Feb, [facility] [id number] [place] [address]- [address] Feb, Post-traumatic stress disorder, unspecified F43.10 ; Major depressive disorder, recurrent, moderate F33.1 and Problems related to release from correction Z65.2 [facility] [id number] [place] [address] 24[address]- 1736 Jan, Sleep apnea, obstructive G47.33 and Chronic pain G89.29 [facility] [id number] [address] Jan, [facility] [id number] [place] [address]- [address] Jan, Dental examination Z01.20 [facility] [address] [address] Jan, [facility] [address] [address] Jan, [facility] [address] [address] Dec, Post-traumatic stress disorder, unspecified F43.10 ; Major depressive disorder, recurrent, moderate F33.1 and Problems related to release from correction Z65.2 [facility] [address] [address] Dec, Encounter for immunization Z23 ; Problems related to release from correction Z65.2 ; Sleep apnea, obstructive G47.33 and Post-traumatic stress disorder, chronic F43.12 [facility] [id number] [place] [address] 86342- 9464 Dec, Sleep apnea, obstructive G47.33 ; Hyperlipidemia E78.5 ; Chronic pain G89.29 ; Glaucoma H40.9 ; HTN (hypertension) I10 ; Post-traumatic stress disorder, unspecified F43.10 ; Anxiety F41.9 ; Chronic tension headaches G44.229 ; Mitral valve prolapse I34.1 and CAD (coronary artery disease) I25.10 [facility] [id number] [place] [address] 69027- 7513 Dec, Post-traumatic stress disorder, unspecified F43.10 ; Major depressive disorder, recurrent, moderate F33.1 and Problems related to release from correction Z65.2 [facility] [id number] [place] [address] 00826- 9093 Nov, Chronic pain G89.29 [facility] [id number] [place] [address] 46155- 6764 Nov, Post-traumatic stress disorder, unspecified F43.10 ; Major depressive disorder, recurrent, moderate F33.1 and Problems related to release from correction Z65.2 [facility] [address] [place] [address] 27413- 1676 Oct, [facility] [id number] [place] [address] 63642- 6676 Oct, [facility] [id number] [place] [address] 31674- 9621 16 Oct, 2015 Post-traumatic stress disorder, unspecified F43.10 ; Major depressive disorder, recurrent, moderate F33.1 and Problems related to release from correction Z65.2 [facility] [id number] [place] [address] 73907- 1470 08 Oct, 2015 [facility] [id number] [place] [address] 45747- 0778 Oct, Environmental allergies Z91.09 ; Cough R05 and Open-angle glaucoma of both eyes H40.10X0 [place] [address] [address]- [address]756 Sep, [facility] [id number] [place] [address] 46570- 7494 Sep, Post-traumatic stress disorder, unspecified F43.10 ; Major depressive disorder, recurrent, moderate F33.1 and Problems related to release from correction Z65.2 [facility] [address] 88862- 3609 Sep, Chronic pain G89.29 [facility] [address] 67500- 7790 Sep, Other chronic pain G89.29 ; Pain in right shoulder M25.511 and Pain in left shoulder M25.512 [facility] [address] 59694- 8515 Sep, [facility] [address] 29887- 7254 Sep, [facility] [address] 64753- 3627 Sep, [facility] [id number] [place] [address] [id number] Aug, Dental examination Z01.20 [facility] [id number] [place] [address] 59210- 6213 Aug, Post-traumatic stress disorder, unspecified F43.10 ; Open- angle glaucoma of both eyes H40.10X0 and Problems related to release from correction Z65.2 [facility] [id number] [place] [address] 85466- 6903 Aug, [facility] [id number] [place] [address] 13018- 2532 Aug, Sleep apnea, obstructive G47.33 ; Obesity E66.9 ; Hyperlipidemia E78.5 ; Bilateral headaches R51 ; HTN (hypertension) I10 ; Post- traumatic stress disorder, unspecified F43.10 ; Anxiety F41.9 ; Neuropathy G62.9 ; Glaucoma H40.9 and Chronic pain G89.29 [facility] [address] [id number] Aug, Encounter for dental examination Z01.20 [facility] [id number] [place] [address] 42235- 5687 Aug, Post-traumatic stress disorder, unspecified F43.10 ; Major depressive disorder, recurrent, moderate F33.1 and Problems related to release from correction Z65.2 [facility] [id number] [place] [address] 52862- 1316 Aug, [facility] [id number] [place] [address] 17126- 3091 Jul, [facility] [id number] [place] [address] 58746- 4688 Jul, Post-traumatic stress disorder, unspecified F43.10 and Major depressive disorder, recurrent, moderate F33.1 [facility] [id number] [place] [address] 05071- 3489 Jul, [facility] [id number] [place] [address] 06106- 3877 Jul, [facility] [id number] [place] [address] 15941- 1478 Jul, Chronic pain G89.29 [facility] [id number] [place] [address] 62430- 3811 June, Post-traumatic stress disorder, unspecified F43.10 and Major depressive disorder, recurrent, moderate F33.1 [facility] [id number] [place] [address] 13857- 4302 June, [facility] [id number] [place] [address] 86380- 6403 June, Chronic pain G89.29 [facility] [address] [address] June, Post-traumatic stress disorder, unspecified F43.10 and Major depressive disorder, recurrent, moderate F33.1 [facility] [address] [address] May, Post-traumatic stress disorder, unspecified F43.10 and Major depressive disorder, recurrent, moderate F33.1 [facility] [id number] [address] 2114 May, [facility] [id number] [place] [address] 57173- 1776 08 May, 2015 [facility] [id number] [place] [address] 23501- 5709 May, [facility] [id number] [place] [address] 23160- 1628 Apr, [facility] [address] [place] [address] 32209- 8676 31 Apr, 2015 Post-traumatic stress disorder, unspecified F43.10 and Sleep apnea, obstructive G47.33 [facility] [address] [address]- 9780 31 Apr, 2015 [facility] [address] [place] [address] 82348- 8473 Apr, Shoulder pain, left M25.512 [facility] [address] [address] 2546 18 Apr, 2015 Post-traumatic stress disorder, unspecified F43.10 and Major depressive disorder, recurrent, moderate F33.1 [facility] [address] [address]76 17 Apr, 2015 [facility] [address] [address]- 5126 11 Apr, 2015 [facility] [id number] [place] [address] 87277- 3806 Apr, [facility] [id number] [place] [address] 24631- 6052 Apr, Left shoulder pain M25.512 [facility] [id number] [place] [address] 89143- 2013 Mar, [facility] [id number] [place] [address] 20033- 8218 Mar, [facility] [id number] [place] [address] 91802- 0083 Mar, [facility] [id number] [place] [address] 64974- 8628 Mar, Sleep apnea, obstructive G47.33 ; Obesity E66.9 ; Chronic pain G89.29 ; Hyperlipidemia E78.5 ; HTN (hypertension) I10 ; Blindness and low vision H54.10 ; Major depressive disorder, recurrent, moderate F33.1 and Anxiety F41.9 [facility] [id number] [place] [address] 12870- 2418 Mar, [facility] [id number] [place] [address] 39591- 7463 Mar, Post-traumatic stress disorder, unspecified F43.10 and Major depressive disorder, recurrent, moderate F33.1 [facility] [id number] [place] [address] 00504- 2111 Mar, [facility] [id number] [place] [address] 23660- 3706 Mar, HTN (hypertension) I10 ; Blindness and low vision H54.10 ; Obesity E66.9 ; Hyperlipidemia E78.5 ; Glaucoma H40.9 ; Chronic pain G89.29 and CAD (coronary artery disease) I25.10 [facility] [id number] [place] [address] 44559- 3598 Feb, [facility] [id number] [place] [address] 14379- 0690 Feb, Post-traumatic stress disorder, unspecified F43.10 ; Obesity E66.9 ; Sleep apnea, obstructive G47.33 and Open-angle glaucoma of both eyes H40.10X0 [facility] [id number] [place] [address] 73341- 0629 Feb, Post-traumatic stress disorder, unspecified F43.10 and Major depressive disorder, recurrent, moderate F33.1 [facility] [id number] [place] [address] 61044- 5577 Feb, [address] 98139- 7475 Feb, [place] [id number] [place] [address] 13057- 0635 Feb, HTN (hypertension) I10 ; Post-traumatic stress disorder, unspecified F43.10 ; Blindness and low vision H54.10 ; Obesity E66.9 ; Hyperlipidemia E78.5 ; Chronic pain G89.29 ; Glaucoma H40.9 ; Mitral valve prolapse I34.1 and Bilateral headaches R51 [place] [id number] [place] [address] 04326- 0532 Feb, [place] [id number] [place] [address] 73039- 8231 Feb, Post-traumatic stress disorder, unspecified F43.10 and Major depressive disorder, recurrent, moderate F33.1 [facility] [id number] [place] [address] 05486- 7790 Feb, [address] 45570- 2500 Feb, [facility] [id number] [place] [address] 09633- 7656 Jan, [facility] [address] 07781- 7983 Jan, [facility] [id number] [place] [address] 50737- 3531 Jan, Obesity E66.9 ; HTN (hypertension) I10 ; Blindness and low vision H54.10 ; Major depressive disorder, recurrent, moderate F33.1 ; Glaucoma H40.9 ; Hyperlipidemia E78.5 ; Sleep apnea, obstructive G47.33 ; Chronic pain G89.29 ; Anxiety F41.9 ; Chronic tension headaches G44.229 and Cough R05 [facility] [address] 34920- 7533 Jan, [address] 69668- 3121 Jan, [facility] [address] 14032- 0375 Jan, Post-traumatic stress disorder, unspecified F43.10 ; Obesity E66.9 ; Sleep apnea, obstructive G47.33 and Open-angle glaucoma of both eyes H40.10X0 [place] [id number] [place] [address] 54672- 0181 Jan, [address] 67553- 2046 Jan, Post-traumatic stress disorder, unspecified F43.10 and Major depressive disorder, recurrent, moderate F33.1 [place] [id number] [place] [address] 63785- 0371 Dec, [facility] [id number] [place] [address] 53433- 4803 Dec, Sleep apnea, obstructive G47.33 ; Obesity E66.9 ; Hyperlipidemia E78.5 ; Glaucoma H40.9 ; Chronic pain G89.29 ; HTN (hypertension ) I10 ; Blindness and low vision H54.10 ; Anxiety F41.9 and CAD (coronary artery disease) I25.10 [place] [id number] [place] [address] 13166- 7786 Nov, [facility] [id number] [place] [address] 23343- 9331 Nov, [facility] [address] 80868- 0665 Nov, [facility] [id number] [place] [address] 57346- 5053 Nov, [facility] [address] 57291- 3371 Nov, [facility] [address] 33174- 5385 Nov, Encounter for immunization Z23 ; Sleep apnea, obstructive G47.33 ; Obesity E66.9 ; Hyperlipidemia E78.5 ; Glaucoma H40.9 ; Chronic pain G89.29 ; Anxiety F41.9 ; Chronic tension headaches G44.229 and HTN (hypertension ) I10 [facility] [id number] [place] [address] 24022- 0481 Nov, [facility] [id number] [place] [address] 12894- 9213 Nov, [facility] [id number] [place] [address] 23351- 6298 Nov, Dizziness R42 [facility] [id number] [place] [address] 84112- 7022 Nov, [facility] [id number] [place] [address] 76557- 4027 Oct, [facility] [id number] [place] [address] 41720- 6007 Oct, [facility] [id number] [place] [address] 77202- 6427 Oct, [facility] [id number] [place] [address] 76801- 3719 Oct, [facility] [address] 80478- 1798 Oct, Dizziness 780.4 ; Essential hypertension 401.9 ; Obesity 278.00 ; Hyperlipidemia 272.4 ; Chronic pain 338.29 ; Glaucoma 365.9 and Anxiety 300.00 [facility] [address] [address]- 2093 Oct, Essential hypertension 401.9 ; Hyperlipidemia 272.4 ; Glaucoma 365.9 ; Obesity 278.00 ; Chronic pain 338.29 and Allergy to insects V15.06 [facility] [address] [address]- 7547 Sep, [facility] [id number] [place] [address] 49954- 9647 Sep, [facility] [id number] [place] [address] 93028- 4416 Sep, [facility] [address] [place] [address] 21806- 7625 Sep, [facility] [address] [place] [address] 52485- 8183 Aug, Essential hypertension 401.9 ; Obesity 278.00 [...]
--- OUTSIDE RECORDS SUMMARY | 2018-02-04 14:47 | XMS REPORT ---
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 Name Role Phone ALENA ÁLVAREZ Unavailable PROBLEMS Type Condition ICD9-CM Code [id number] Code Onset Dates Condition Status SNOMED Code Problem Primary insomnia F51.01 Active 3092650 Problem Other male erectile dysfunction N52.8 Active 697443338 Problem Morbid (severe) obesity due to excess calories E66.01 Active 378951480 Problem Sarcoidosis D86.9 Active 69558539 Problem Blindness and low vision H54.10 Active 824184291 Problem Problems related to release from long-term Z65.2 Active 322496655600515 Problem Myocarditis, unspecified chronicity, 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 Active 93177448 Problem Chronic pain G89.29 Active 93367072 Problem 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 Active 488811323 Problem Body mass index (BMI) of 40.0-44.9 in adult Z68.41 Active 751571349 Problem Chronic pain syndrome G89.4 Active 117566279 Problem Migraine without aura and without status migrainosus, not intractable G43.009 Active 447666674 Problem Anxiety F41.9 Active 44582418 Problem Major depressive disorder, recurrent, moderate F33.1 Active 69493524 Problem HTN (hypertension) I10 Active 27156072 Problem Chronic tension headaches G44.229 Active 052217023 Problem CAD (coronary artery disease) I25.10 Active 81996511 Problem Post-traumatic stress disorder, chronic F43.12 Active 714688739 Problem Hyperlipidemia E78.5 Active 68228484 Problem Open-angle glaucoma of both eyes H40.10X0 Active 19049048 Problem Environmental allergies Z91.09 Active 712101619 Problem Sleep apnea, obstructive G47.33 Active 83677858 Problem Mitral valve prolapse I34.1 Active 572841697 Problem Arrhythmia as indication for cardiac pacemaker replacement I49.9 Active 73891406 ALLERGIES No Information ENCOUNTERS Encounter Location Date Diagnosis [facility] [address] [address] Oct, [facility] [id number] [place] [address] 87044- 3751 Oct, [facility] [address] [address] 2487 Oct, [facility] [id number] [place] [address] 93001- 5904 Sep, [facility] [address] [address] Sep, [facility] [id number] [place] [address] 94181- 1408 Sep, [facility] [id number] [place] [address] 94902- 4297 Sep, [facility] [id number] [place] [address] 67617- 1214 Sep, [facility] [address] [address] 4670 Sep, [facility] [id number] [place] [address] 55933- 8290 Sep, Left leg pain M79.605 [facility] [address] [address] 0801 Sep, HTN (hypertension) I10 [facility] [address] [address] 6610 Sep, [facility] [address] [address] 8645 Sep, Post-traumatic stress disorder, unspecified F43.10 ; Major depressive disorder, recurrent, moderate F33.1 and Problems related to release from long-term Z65.2 [facility] [address] [address] Sep, [place] [id number] [place] [address] 48788- 8613 Aug, [place] [address] 21238- 2337 Aug, Sarcoidosis D86.9 [place] [id number] [place] [address] 57912- 6833 Aug, Sarcoidosis D86.9 [place] [id number] [place] [address] 515891- 1934 Aug, HTN (hypertension) I10 [place] [facility] [address] 53768- 0264 Aug, Post-traumatic stress disorder, unspecified F43.10 ; Major depressive disorder, recurrent, moderate F33.1 and Problems related to release from long-term Z65.2 [place] [address] 20705- 8041 Aug, [facility] [id number] [place] [address] 35019- 0382 Aug, Left leg pain M79.605 [facility] [id number] [place] [address] 79575- 9098 Jul, Post-traumatic stress disorder, chronic F43.12 ; Anxiety F41.9 ; Problems related to release from long-term Z65.2 and BMI 40.0-44.9, adult Z68.41 [place] [place] [id number] [place] [address] 14055- 6665 Jul, HTN (hypertension) I10 ; Body mass index (BMI) of 40.0-44.9 in adult Z68.41 and Acute swimmer''s ear of both sides H60.333 [place] [id number] [place] [address] 66158- 6850 Jul, Glaucoma H40.9 [place] [id number] [place] [address] 89432- 6671 14 Jul, 2017 [facility] [id number] [place] [address] 62527- 9954 Jul, Sarcoidosis D86.9 [facility] [id number] [place] [address] 85628- 6489 Jul, Left leg pain M79.605 [facility] [id number] [place] [address] 16128- 4749 Jul, Sarcoidosis D86.9 [facility] [id number] [place] [address] 94734- 2987 Jul, Post-traumatic stress disorder, unspecified F43.10 ; Major depressive disorder, recurrent, moderate F33.1 and Problems related to release from long-term Z65.2 [facility] [id number] [place] [address] 41781- 8161 June, [facility] [id number] [place] [address] 90162 -1919 June, Sore throat J02.9 and BMI 40.0-44.9, adult Z68.41 [facility] [id number] [place] [address] 68942- 5795 June, [facility] [id number] [place] [address] 36770- 5674 June, [facility] [id number] [place] [address] 84765- 4671 June, [facility] [id number] [place] [address] 97595- 3998 June, Left leg pain M79.605 [facility] [id number] [place] [address] 13539- 4853 June, Sarcoidosis D86.9 [facility] [id number] [place] [address] 76410- 8134 June, [facility] [id number] [place] [address] 00202- 7184 June, [facility] [address] [address] 2291 June, Left leg pain M79.605 [facility] [address] [address]- 3048 May, [facility] [id number] [address]- 5818 May, [facility] [id number] [place] [address] 83416- 5703 May, [facility] [id number] [place] [address] 98793- 7373 May, Left leg pain M79.605 [facility] [address] [place] [address] 51123- 5009 May, Post-traumatic stress disorder, unspecified F43.10 ; Major depressive disorder, recurrent, moderate F33.1 and Problems related to release from long-term Z65.2 [facility] [address] [address]- 1583 May, Chronic pain G89.29 ; Anxiety F41.9 ; Chest pain, unspecified type R07.9 and BMI 40.0-44.9, adult Z68.41 [facility] [address] [address]- 6537 Apr, [facility] [id number] [place] [address] 23734- 6701 Apr, Left leg pain M79.605 [facility] [address] [address]- 1517 Apr, Post-traumatic stress disorder, unspecified F43.10 ; Problems related to release from long-term Z65.2 ; Anxiety F41.9 and BMI 40.0-44.9 , adult Z68.41 [facility] [address] [address]- 9926 Apr, [place] [address] 13643- 0714 19 Apr, 2017 Left leg pain M79.[address] 59464- 5581 13 Apr, 2017 Post-traumatic stress disorder, unspecified F43.10 ; Major depressive disorder, recurrent, moderate F33.1 and Problems related to release from long-term Z65.[address] 70369- 1911 12 Apr, [address] 24215- 6737 12 Apr, 2017 Chronic pain G89.29 ; 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 ; Morbid (severe) obesity due to excess calories E66.01 ; Anxiety F41.9 and BMI 40.0-44.9, adult Z68.41 [facility] [address] [address] -[address]174 10 Apr, 2017 Sore throat J02.9 and BMI 40.0-44.9, adult Z68.[address] 41848- 3959 02 Apr, 2017 Left leg pain M79.605 [facility] [address] [id number] Mar, Dental examination Z01.[address] 03853- 9771 Mar, [facility] [address] 20[address] -0327 Mar, Cough R05 ; Viral gastroenteritis A08.4 and BMI 40.0-44.9, adult Z68.[address] 15212- 3698 Mar, Left leg pain M79.[address] 42684- 8484 Mar, Post-traumatic stress disorder, unspecified F43.10 ; Major depressive disorder, recurrent, moderate F33.1 and Problems related to release from long-term Z65.2 [place] [id number] [place] [address] 59002- 1403 Feb, Left leg pain M79.605 [place] [id number] [place] [address] 25043- 3457 Feb, [place] [id number] [place] [address] 66220- 0821 Feb, BMI 40.0-44.9, adult Z68.41 ; Chronic pain syndrome G89.4 ; Migraine without aura and without status migrainosus, not intractable G43.009 ; Mitral valve prolapse I34.1 and 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 [place] [id number] [place] [address] 26842- 6799 Feb, Post-traumatic stress disorder, chronic F43.12 ; Anxiety F41.9 ; Problems related to release from long-term Z65.2 and BMI 40.0-44.9, adult Z68.41 [place] [address] [place] [address] 78012- 2882 Feb, Post-traumatic stress disorder, unspecified F43.10 ; Major depressive disorder, recurrent, moderate F33.1 and Problems related to release from long-term Z65.2 [place] [place] [address] [place] [address] 42209- 2532 Feb, Left leg pain M79.605 [place] [id number] [place] [address] 14784- 2187 Jan, Post-traumatic stress disorder, unspecified F43.10 ; Major depressive disorder, recurrent, moderate F33.1 and Problems related to release from long-term Z65.2 [place] [address] [place] [address] 29487- 8752 Jan, [place] [address] [place] [address]- 0040 Jan, [facility] [id number] [place] [address] 05077- 9076 Jan, Anxiety F41.9 [facility] [id number] [place] [address] 13695- 1903 13 Jan, 2017 Left leg pain M79.605 [facility] [id number] [place] [address] 93477- 0607 Dec, Left leg pain M79.605 [facility] [address] [place] [address] 47713- 6506 Dec, [place] [id number] [place] [address] 67927- 0095 15 Dec, 2016 Post-traumatic stress disorder, unspecified F43.10 ; Major depressive disorder, recurrent, moderate F33.1 and Problems related to release from long-term Z65.2 [place] [address] [place] [address] 40555- 1801 31 Nov, 2016 Chronic pain G89.29 and Anxiety F41.9 [place] [id number] [place] [address] 17651- 1611 24 Nov, 2016 Chronic pain G89.29 and Anxiety F41.9 [place] [address] [place] [address] 96269- 6075 16 Nov, 2016 Post-traumatic stress disorder, unspecified F43.10 ; Major depressive disorder, recurrent, moderate F33.1 and Problems related to release from long-term Z65.2 [place] [address] [address]- 4381 09 Nov, 2016 Other abnormal findings in specimens from other organs, systems and tissues R89.8 ; Other male erectile dysfunction N52.8 ; Body mass index (BMI) of 40.0-44.9 in adult Z68.41 and Morbid (severe) obesity due to excess calories E66.01 [place] [address] [place] [address] 24338- 0652 02 Nov, 2016 Post-traumatic stress disorder, unspecified F43.10 ; Major depressive disorder, recurrent, moderate F33.1 and Problems related to release from long-term Z65.2 [facility] [id number] [address] 29 Oct, 2016 Dental examination Z01.20 [facility] [id number] [place] [address] 21925- 8351 28 Oct, 2016 [facility] [id number] [place] [address] 11205- 8915 28 Oct, 2016 Encounter for immunization Z23 [place] [id number] [place] [address] 74989- 8949 Oct, Chronic pain G89.29 ; Anxiety F41.9 ; Arrhythmia as indication for cardiac pacemaker replacement I49.9 and Glaucoma H40.9 [place] [id number] [place] [address] 06545- 6182 Oct, Anxiety F41.9 ; Post-traumatic stress disorder, chronic F43.12 and Problems related to release from long-term Z65.2 [facility] [id number] [place] [address] 60725- 9809 07 Oct, 2016 Post-traumatic stress disorder, unspecified F43.10 ; Major depressive disorder, recurrent, moderate F33.1 and Problems related to release from long-term Z65.2 [facility] [address] [place] [address] 01067- 1458 Sep, Chronic pain G89.29 and Anxiety F41.9 [place] [place] [address] [place] [address] 62815- 5873 Sep, Post-traumatic stress disorder, unspecified F43.10 ; Major depressive disorder, recurrent, moderate F33.1 and Problems related to release from long-term Z65.2 [place] [address] [place] [address] 96678- 4950 Sep, Post-traumatic stress disorder, unspecified F43.10 ; Major depressive disorder, recurrent, moderate F33.1 and Problems related to release from long-term Z65.2 [place] [id number] [place] [address] 50045- 9937 Sep, Chronic pain G89.29 [place] [id number] [place] [address] 74377- 8825 Aug, Dental caries, unspecified K02.9 [place] [id number] [place] [address] 66211- 9137 Aug, Sleep apnea, obstructive G47.33 ; Obesity E66.9 ; Chronic pain G89.29 ; HTN (hypertension) I10 ; Major depressive disorder, recurrent, moderate F33.1 ; Anxiety F41.9 ; Chronic tension headaches G44.229 ; Mitral valve prolapse I34.1 ; Arrhythmia as indication for cardiac pacemaker replacement I49.9 ; Dental caries, unspecified K02.9 ; Primary insomnia F51.01 and Hyperlipidemia E78.5 [place] [facility] [id number] [place] [address] 65549- 6957 Aug, Post-traumatic stress disorder, unspecified F43.10 ; Major depressive disorder, recurrent, moderate F33.1 and Problems related to release from long-term Z65.2 [place] [id number] [place] [address] 32123- 1465 Aug, Dental examination Z01.20 [facility] [id number] [place] [address] [id number] Aug, Dental examination Z01.20 [place] [id number] [place] [address] 45052- 9515 Aug, Post-traumatic stress disorder, unspecified F43.10 ; Major depressive disorder, recurrent, moderate F33.1 and Problems related to release from long-term Z65.2 [place] [id number] [place] [address] 91445- 4096 Aug, Chronic pain G89.29 and Primary insomnia F51.01 [place] [id number] [place] [address] 56410- 6733 Jul, [place] [address] [address]- 2345 Jul, [place] [id number] [place] [address] 95655- 6524 Jul, Nausea R11.0 [place] [facility] [id number] [place] [address] 87884- 2610 Jul, Arrhythmia as indication for cardiac pacemaker replacement I49.9 [place] [id number] [place] [address] 35095- 7495 Jul, Post-traumatic stress disorder, unspecified F43.10 ; Major depressive disorder, recurrent, moderate F33.1 and Problems related to release from long-term Z65.2 [place] [id number] [place] [address] 88527- 9135 Jul, Anxiety F41.9 [place] [facility] [id number] [place] [address] 19958- 0937 08 Jul, 2016 Chronic pain G89.29 [place] [id number] [place] [address] 56743- 1140 02 Jul, 2016 Sleep apnea, obstructive G47.33 ; Hyperlipidemia E78.5 ; Chronic pain G89.29 ; Blindness and low vision H54.10 ; Major depressive disorder, recurrent, moderate F33.1 ; Anxiety F41.9 ; Mitral valve prolapse I34.1 ; Arrhythmia as indication for cardiac pacemaker replacement I49.9 ; Primary insomnia F51.01 ; Bilateral headaches R51 and Environmental allergies Z91.09 [place] [address] [place] [address] 19615- 6520 Jul, Post-traumatic stress disorder, unspecified F43.10 ; Major depressive disorder, recurrent, moderate F33.1 and Problems related to release from long-term Z65.2 [place] [address] [place] [address] 35038- 8162 June, Post-traumatic stress disorder, chronic F43.12 ; Anxiety F41.9 ; Problems related to release from long-term Z65.2 ; Sleep apnea, obstructive G47.33 and Primary insomnia F51.01 [place] [id number] [place] [address] 07240- 0535 June, [place] [id number] [place] [address] 11873- 8592 June, [place] [address] 66613- 0500 June, [place] [address] 74651- 5990 June, Chronic pain G89.[address] 17472- 5961 June, Chronic pain G89.[address] 06798- 4665 June, Lipoma of left lower extremity D17.24 ; Open wound T14.8 and Swelling of left lower extremity M79.89 [place] [id number] [place] [address] 31583- 8807 June, Post-traumatic stress disorder, unspecified F43.10 ; Major depressive disorder, recurrent, moderate F33.1 and Problems related to release from long-term Z65.2 [place] [id number] [place] [address] 79711- 1677 May, Lipoma of left lower extremity D17.24 ; Major depressive disorder, recurrent, moderate F33.1 ; Sleep apnea, obstructive G47.33 ; Hyperlipidemia E78.5 ; Obesity E66.9 ; HTN (hypertension) I10 ; Glaucoma H40.9 ; CAD (coronary artery disease) I25.10 ; Chronic tension headaches G44.229 ; Chronic pain G89.29 ; Anxiety F41.9 ; Nausea R11.0 and Primary insomnia F51.01 [place] [id number] [place] [address] 55370- 9762 May, [place] [address] [address]- 4861 May, Chronic pain G89.29 [place] [id number] [place] [address] 77191- 5632 May, [place] [id number] [place] [address] 12345- 9808 31 Apr, 2016 Post-traumatic stress disorder, unspecified F43.10 ; Major depressive disorder, recurrent, moderate F33.1 and Problems related to release from long-term Z65.2 [place] [id number] [place] [address] 05288- 4713 28 Apr, 2016 Primary insomnia F51.01 ; Post-traumatic stress disorder, chronic F43.12 and Problems related to release from long-term Z65.2 [place] [id number] [place] [address] 67331- 8990 17 Apr, 2016 Post-traumatic stress disorder, unspecified F43.10 ; Major depressive disorder, recurrent, moderate F33.1 and Problems related to release from long-term Z65.2 [place] [id number] [place] [address] 17920- 2229 Apr, [place] [id number] [place] [address] 41485- 5032 Apr, Sleep apnea, obstructive G47.33 ; Chronic pain G89.29 ; HTN (hypertension) I10 ; Mitral valve prolapse I34.1 ; Shoulder pain, left M25.512 ; Arrhythmia as indication for cardiac pacemaker replacement I49.9 ; Glaucoma H40.9 ; Bilateral headaches R51 ; Environmental allergies Z91.09 ; Primary insomnia F51.01 and Nausea R11.0 [place] [id number] [place] [address] 36547- 0660 Apr, [place] [id number] [place] [address] 13521- 1308 Apr, [place] [id number] [place] [address] 52753- 2055 Apr, Post-traumatic stress disorder, unspecified F43.10 ; Major depressive disorder, recurrent, moderate F33.1 and Problems related to release from long-term Z65.2 [address] [place] [address] 38023- 0144 Apr, HTN (hypertension) I10 [place] [id number] [place] [address] 09734- 3855 Apr, HTN (hypertension) I10 [place] [id number] [place] [address] 02840- 2996 Mar, Chronic pain G89.29 ; Primary insomnia F51.01 and Problems related to release from long-term Z65.2 [place] [id number] [place] [address] 70107- 1115 07 Mar, 2016 Post-traumatic stress disorder, unspecified F43.10 ; Major depressive disorder, recurrent, moderate F33.1 and Problems related to release from long-term Z65.2 [place] [id number] [place] [address] 97301- 3626 Feb, Post-traumatic stress disorder, unspecified F43.10 ; Major depressive disorder, recurrent, moderate F33.1 and Problems related to release from long-term Z65.2 [address] [place] [address] 86377- 4191 Feb, Chronic tension headaches G44.229 [address] [place] [address] 38926- 3910 Feb, Sleep apnea, obstructive G47.33 ; Obesity [...] pacemaker replacement I49.9 and Primary insomnia F51.01 [place] [id number] [address]- 9641 Feb, Post-traumatic stress disorder, unspecified F43.10 and Chronic pain G89.29 [facility] [address] [address]- 1753 Feb, [facility] [address] [id number] Feb, Dental caries K02.9 [facility] [address] [place] [address] 56750- 2826 Feb, [facility] [address] [place] [address] 18629- 5338 Feb, Post-traumatic stress disorder, unspecified F43.10 ; Major depressive disorder, recurrent, moderate F33.1 and Problems related to release from long-term Z65.2 [facility] [id number] [place] [id number] Jan, Sleep apnea, obstructive G47.33 and Chronic pain G89.29 [facility] [id number] [address] Jan, [facility] [id number] [place] [address]- 4351 Jan, Dental examination Z01.20 [facility] [id number] [address] Jan, [facility] [id number] [address] Jan, [facility] [id number] [address] Dec, Post-traumatic stress disorder, unspecified F43.10 ; Major depressive disorder, recurrent, moderate F33.1 and Problems related to release from long-term Z65.2 [facility] [id number] [address] Dec, Encounter for immunization Z23 ; Problems related to release from long-term Z65.2 ; Sleep apnea, obstructive G47.33 and Post-traumatic stress disorder, chronic F43.12 [facility] [id number] [place] [id number]- 4114 Dec, Sleep apnea, obstructive G47.33 ; Hyperlipidemia E78.5 ; Chronic pain G89.29 ; Glaucoma H40.9 ; HTN (hypertension) I10 ; Post-traumatic stress disorder, unspecified F43.10 ; Anxiety F41.9 ; Chronic tension headaches G44.229 ; Mitral valve prolapse I34.1 and CAD (coronary artery disease) I25.10 [place] [id number] [place] [address] 82331- 8136 Dec, Post-traumatic stress disorder, unspecified F43.10 ; Major depressive disorder, recurrent, moderate F33.1 and Problems related to release from long-term Z65.2 [place] [id number] [place] [address] 91017- 0890 Nov, Chronic pain G89.29 [place] [id number] [place] [address] 55260- 5186 Nov, Post-traumatic stress disorder, unspecified F43.10 ; Major depressive disorder, recurrent, moderate F33.1 and Problems related to release from long-term Z65.2 [place] [id number] [place] [address] 91850- 1057 Oct, [place] [facility] [id number] [place] [address] 91687- 4268 Oct, [facility] [id number] [place] [address] 84161- 0632 16 Oct, 2015 Post-traumatic stress disorder, unspecified F43.10 ; Major depressive disorder, recurrent, moderate F33.1 and Problems related to release from long-term Z65.2 [place] [id number] [place] [address] 07750- 1150 08 Oct, 2015 [place] [id number] [place] [address] 18562- 5341 Oct, Environmental allergies Z91.09 ; Cough R05 and Open-angle glaucoma of both eyes H40.10X0 [place] [id number] 42836- 1027 Sep, [facility] [id number] [place] [address] 55479- 2065 Sep, Post-traumatic stress disorder, unspecified F43.10 ; Major depressive disorder, recurrent, moderate F33.1 and Problems related to release from long-term Z65.2 [place] [address] 82149- 5085 Sep, Chronic pain G89.29 [place] [address] 26591- 5393 Sep, Other chronic pain G89.29 ; Pain in right shoulder M25.511 and Pain in left shoulder M25.512 [place] [address] 73467- 0605 Sep, [place] [address] 82579- 9263 Sep, [facility] [address] 31077- 6175 Sep, [facility] [id number] [place] [address] [id number] Aug, Dental examination Z01.20 [facility] [id number] [place] [address] 83668- 5194 Aug, Post-traumatic stress disorder, unspecified F43.10 ; Open- angle glaucoma of both eyes H40.10X0 and Problems related to release from long-term Z65.2 [facility] [id number] [place] [address] 51221- 6499 Aug, [facility] [id number] [place] [address] 61572- 8385 Aug, Sleep apnea, obstructive G47.33 ; Obesity E66.9 ; Hyperlipidemia E78.5 ; Bilateral headaches R51 ; HTN (hypertension) I10 ; Post- traumatic stress disorder, unspecified F43.10 ; Anxiety F41.9 ; Neuropathy G62.9 ; Glaucoma H40.9 and Chronic pain G89.29 [facility] [address] [id number] Aug, Encounter for dental examination Z01.20 [facility] [id number] [place] [address] 45040- 6084 Aug, Post-traumatic stress disorder, unspecified F43.10 ; Major depressive disorder, recurrent, moderate F33.1 and Problems related to release from long-term Z65.2 [facility] [id number] [place] [address] 51924- 9728 Aug, [facility] [id number] [place] [address] 50785- 8487 Jul, [facility] [id number] [place] [address] 98126- 1081 Jul, Post-traumatic stress disorder, unspecified F43.10 and Major depressive disorder, recurrent, moderate F33.1 [facility] [id number] [place] [address] 58588- 8456 Jul, [facility] [id number] [place] [address] 83717- 9156 Jul, [facility] [id number] [place] [address] 23354- 1350 Jul, Chronic pain G89.29 [facility] [id number] [place] [address] 13651- 5200 June, Post-traumatic stress disorder, unspecified F43.10 and Major depressive disorder, recurrent, moderate F33.1 [facility] [id number] [place] [address] 85874- 8367 June, [facility] [id number] [place] [address] 38702- 1330 June, Chronic pain G89.29 [facility] [address] [address] 9136 June, Post-traumatic stress disorder, unspecified F43.10 and Major depressive disorder, recurrent, moderate F33.1 [facility] [address] [address]- 3084 May, Post-traumatic stress disorder, unspecified F43.10 and Major depressive disorder, recurrent, moderate F33.1 [facility] [id number] [address]- 6442 May, [facility] [id number] [place] [address] 90851- 4716 08 May, 2015 [facility] [id number] [place] [address] 91143- 2625 May, [facility] [id number] [place] [address] 25109- 3638 Apr, [facility] [id number] [place] [address] 13140- 1787 31 Apr, 2015 Post-traumatic stress disorder, unspecified F43.10 and Sleep apnea, obstructive G47.33 [facility] [address] [address]- 8901 31 Apr, 2015 [facility] [id number] [place] [address] 61729- 6925 Apr, Shoulder pain, left M25.512 [facility] [address] [address] 2546 18 Apr, 2015 Post-traumatic stress disorder, unspecified F43.10 and Major depressive disorder, recurrent, moderate F33.1 [facility] [address] [address] 4586 17 Apr, 2015 [facility] [address] [address]- 7346 11 Apr, 2015 [facility] [id number] [place] [address] 42694- 6252 Apr, [facility] [id number] [place] [address] 89324- 5409 Apr, Left shoulder pain M25.512 [place] [id number] [place] [address] 15641- 8752 Mar, [facility] [id number] [place] [address] 44396- 7685 Mar, [facility] [id number] [place] [address] 27968- 3733 Mar, [place] [id number] [place] [address] 44774- 1540 Mar, Sleep apnea, obstructive G47.33 ; Obesity E66.9 ; Chronic pain G89.29 ; Hyperlipidemia E78.5 ; HTN (hypertension) I10 ; Blindness and low vision H54.10 ; Major depressive disorder, recurrent, moderate F33.1 and Anxiety F41.9 [place] [id number] [place] [address] 54425- 4479 Mar, [place] [facility] [id number] [place] [address] 99138- 9990 Mar, Post-traumatic stress disorder, unspecified F43.10 and Major depressive disorder, recurrent, moderate F33.1 [place] [id number] [place] [address] 63731- 0285 Mar, [place] [place] [id number] [place] [address] 31149- 0216 Mar, HTN (hypertension) I10 ; Blindness and low vision H54.10 ; Obesity E66.9 ; Hyperlipidemia E78.5 ; Glaucoma H40.9 ; Chronic pain G89.29 and CAD (coronary artery disease) I25.10 [place] [id number] [place] [address] 74768- 7557 Feb, [facility] [id number] [place] [address] 62063- 2126 Feb, Post-traumatic stress disorder, unspecified F43.10 ; Obesity E66.9 ; Sleep apnea, obstructive G47.33 and Open-angle glaucoma of both eyes H40.10X0 [place] [id number] [place] [address] 93576- 7161 Feb, Post-traumatic stress disorder, unspecified F43.10 and Major depressive disorder, recurrent, moderate F33.1 [place] [id number] [place] [address] 77122- 4737 Feb, [address] 99942- 1937 Feb, [place] [id number] [place] [address] 79087- 4297 Feb, HTN (hypertension) I10 ; Post-traumatic stress disorder, unspecified F43.10 ; Blindness and low vision H54.10 ; Obesity E66.9 ; Hyperlipidemia E78.5 ; Chronic pain G89.29 ; Glaucoma H40.9 ; Mitral valve prolapse I34.1 and Bilateral headaches R51 [place] [id number] [place] [address] 26011- 0578 Feb, [place] [id number] [place] [address] 91645- 2864 Feb, Post-traumatic stress disorder, unspecified F43.10 and Major depressive disorder, recurrent, moderate F33.1 [place] [id number] [place] [address] 45714- 3810 Feb, [address] 89953- 7389 Feb, [place] [id number] [place] [address] 11058- 6752 Jan, [place] [address] 90980- 4515 Jan, [place] [id number] [place] [address] 76581- 4160 Jan, Obesity E66.9 ; HTN (hypertension) I10 ; Blindness and low vision H54.10 ; Major depressive disorder, recurrent, moderate F33.1 ; Glaucoma H40.9 ; Hyperlipidemia E78.5 ; Sleep apnea, obstructive G47.33 ; Chronic pain G89.29 ; Anxiety F41.9 ; Chronic tension headaches G44.229 and Cough R05 [place] [address] 77449- 3294 Jan, [address] 32053- 5126 Jan, [place] [address] 58704- 3673 Jan, Post-traumatic stress disorder, unspecified F43.10 ; Obesity E66.9 ; Sleep apnea, obstructive G47.33 and Open-angle glaucoma of both eyes H40.10X0 [place] [id number] [place] [address] 21708- 2174 Jan, [address] 73858- 4466 Jan, Post-traumatic stress disorder, unspecified F43.10 and Major depressive disorder, recurrent, moderate F33.1 [place] [id number] [place] [address] 13058- 8078 Dec, [place] [id number] [place] [address] 58015- 5028 Dec, Sleep apnea, obstructive G47.33 ; Obesity E66.9 ; Hyperlipidemia E78.5 ; Glaucoma H40.9 ; Chronic pain G89.29 ; HTN (hypertension ) I10 ; Blindness and low vision H54.10 ; Anxiety F41.9 and CAD (coronary artery disease) I25.10 [place] [id number] [place] [address] 51077- 2398 Nov, [facility] [id number] [place] [address] 42806- 7514 Nov, [facility] [address] 86947- 6136 Nov, [facility] [id number] [place] [address] 36697- 9959 Nov, [facility] [address] 79604- 5506 Nov, [facility] [address] 54925- 0434 Nov, Encounter for immunization Z23 ; Sleep apnea, obstructive G47.33 ; Obesity E66.9 ; Hyperlipidemia E78.5 ; Glaucoma H40.9 ; Chronic pain G89.29 ; Anxiety F41.9 ; Chronic tension headaches G44.229 and HTN (hypertension ) I10 [facility] [id number] [place] [address] 53302- 4302 Nov, [facility] [id number] [place] [address] 36184- 8127 Nov, [facility] [id number] [place] [address] 89236- 6264 Nov, Dizziness R42 [facility] [id number] [place] [address] 91986- 4974 Nov, [facility] [id number] [place] [address] 20366- 8808 Oct, [facility] [id number] [place] [address] 75359- 1423 Oct, [facility] [id number] [place] [address] 44973- 0089 Oct, [facility] [id number] [place] [address] 84647- 9845 Oct, [facility] [address] 33219- 5116 Oct, Dizziness 780.4 ; Essential hypertension 401.9 ; Obesity 278.00 ; Hyperlipidemia 272.4 ; Chronic pain 338.29 ; Glaucoma 365.9 and Anxiety 300.00 [facility] [address] [address]- 3152 Oct, Essential hypertension 401.9 ; Hyperlipidemia 272.4 ; Glaucoma 365.9 ; Obesity 278.00 ; Chronic pain 338.29 and Allergy to insects V15.06 [facility] [address] [address]- 5308 Sep, [facility] [id number] [place] [address] 64062- 2983 Sep, [facility] [id number] [place] [address] 25523- 5528 Sep, [facility] [id number] [place] [address] 17110- 6838 Sep, [facility] [id number] [place] [address] 78424- 8809 Aug, Essential hypertension 401.9 ; Obesity 278.00 ; Hyperlipidemia 272.4 ; Glaucoma 365.9 ; Lipoma 214.9 ; Mitral valve prolapse 424.0 ; Angina at rest 413.9 ; Lymphedema 457.1 and Chronic pain 338.29 IMMUNIZATIONS No Known Immunizations SOCIAL HISTORY Never Assessed REASON FOR VISIT Lab PLAN OF CARE VITAL SIGNS MEDICATIONS Unknown Medications RESULTS No Results PROCEDURES Procedure Date Ordered Result Body Site LAB NOT BILLED BY [facility] June 18, 2017 INSTRUCTIONS MEDICATIONS ADMINISTERED No Known Medications [...]
--- OUTSIDE RECORDS SUMMARY | 2018-02-04 14:48 | XMS REPORT ---
Author Author ALENA ÁLVAREZ Organization [facility] Address [address] [place] [address] Care Team Providers Care Production Line Manager Name Role Phone ALENA ÁLVAREZ Unavailable PROBLEMS Type Condition ICD9-CM Code [id number] Code Onset Dates Condition Status SNOMED Code Problem Primary insomnia F51.01 Active 0734530 Problem Other male erectile dysfunction N52.8 Active 620571368 Problem Morbid (severe) obesity due to excess calories E66.01 Active 763917178 Problem Sarcoidosis D86.9 Active 64926149 Problem Blindness and low vision H54.10 Active 507460170 Problem Problems related to release from usp Z65.2 Active [id number] Problem Myocarditis, unspecified chronicity, 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 Active 98505294 Problem Chronic pain G89.29 Active 96424883 Problem 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 Active 355591481 Problem Body mass index (BMI) of 40.0-44.9 in adult Z68.41 Active 401368474 Problem Chronic pain syndrome G89.4 Active 003744928 Problem Migraine without aura and without status migrainosus, not intractable G43.009 Active 621956088 Problem Anxiety F41.9 Active 86143101 Problem Major depressive disorder, recurrent, moderate F33.1 Active 38436226 Problem HTN (hypertension) I10 Active 62359047 Problem Chronic tension headaches G44.229 Active 054546493 Problem CAD (coronary artery disease) I25.10 Active 59336054 Problem Post-traumatic stress disorder, chronic F43.12 Active 652883717 Problem Hyperlipidemia E78.5 Active 75679228 Problem Open-angle glaucoma of both eyes H40.10X0 Active 40023798 Problem Environmental allergies Z91.09 Active 302973535 Problem Sleep apnea, obstructive G47.33 Active 11537813 Problem Mitral valve prolapse I34.1 Active 139387733 Problem Arrhythmia as indication for cardiac pacemaker replacement I49.9 Active 65786398 ALLERGIES No Information ENCOUNTERS Encounter Location Date Diagnosis [facility] [address] [address] Oct, [facility] [id number] [place] [address] 99873- 9125 Oct, [facility] [address], [place] [address] 1390 Oct, [facility] [id number] [place] [address] 44416- 8623 Sep, [facility] [address], [place] [address] 47[address] Sep, [facility] [id number] [place] [address] 61303- 4154 Sep, [facility] [id number] [place] [address] 50913- 9156 Sep, [facility] [id number] [place] [address] 23300- 8440 Sep, [facility] [address], [place] [address] 1186 Sep, [facility] [id number] [place] [address] 09373- 1762 Sep, Left leg pain M79.605 [facility] [address], [place] [address] 5760 Sep, HTN (hypertension) I10 [facility] [address] [address] 4862 Sep, [facility] [address], [place] [address] 5210 Sep, Post-traumatic stress disorder, unspecified F43.10 ; Major depressive disorder, recurrent, moderate F33.1 and Problems related to release from usp Z65.2 [facility] [address], [place] [address] Sep, [facility] [id number] [place] [address] 54396- 3251 Aug, [place] [address] 07059- 8501 Aug, Sarcoidosis D86.9 [facility] [id number] [place] [address] 12754- 9611 Aug, Sarcoidosis D86.9 [facility] [id number] [place] [address] 370106- 7351 Aug, HTN (hypertension) I10 [place] [facility] [address] 94752- 0526 Aug, Post-traumatic stress disorder, unspecified F43.10 ; Major depressive disorder, recurrent, moderate F33.1 and Problems related to release from usp Z65.2 [facility] [address] 89800- 7781 Aug, [facility] [id number] [place] [address] 46669- 2590 Aug, Left leg pain M79.605 [facility] [id number] [place] [address] 68722- 0651 Jul, Post-traumatic stress disorder, chronic F43.12 ; Anxiety F41.9 ; Problems related to release from usp Z65.2 and BMI 40.0-44.9, adult Z68.41 [facility] [id number] [place] [address] 24434- 6959 Jul, HTN (hypertension) I10 ; Body mass index (BMI) of 40.0-44.9 in adult Z68.41 and Acute swimmer''s ear of both sides H60.333 [place] [id number] [place] [address] 49165- 7060 Jul, Glaucoma H40.9 [facility] [id number] [place] [address] 08103- 1121 14 Jul, 2017 [facility] [id number] [place] [address] 54403- 1416 Jul, Sarcoidosis D86.9 [facility] [id number] [place] [address] 81391- 3175 Jul, Left leg pain M79.605 [facility] [id number] [place] [address] 18899- 3010 Jul, Sarcoidosis D86.9 [facility] [id number] [place] [address] 93565- 0542 Jul, Post-traumatic stress disorder, unspecified F43.10 ; Major depressive disorder, recurrent, moderate F33.1 and Problems related to release from usp Z65.2 [facility] [id number] [address] 09829- 3381 June, [facility] [id number] [place] [address] 16539 -7499 June, Sore throat J02.9 and BMI 40.0-44.9, adult Z68.41 [facility] [id number] [place] [address] 26060- 0869 June, [facility] [id number] [place] [address] 73318- 6548 June, [facility] [id number] [place] [address] 87929- 5189 June, [facility] [id number] [place] [address] 48854- 2439 June, Left leg pain M79.605 [facility] [id number] [place] [address] 37089- 6874 June, Sarcoidosis D86.9 [facility] [id number] [place] [address] 57910- 3260 June, [facility] [id number] [place] [address] 21121- 3747 June, [facility] [address], [place] [address] 8251 June, Left leg pain M79.605 [facility] [address], [place] [address] May, [facility] [id number] [address]- 0428 May, [facility] [id number] [place] [address] 87924- 9727 May, [facility] [id number] [place] [address] 59567- 2668 May, Left leg pain M79.605 [facility] [id number] [place] [address] 58362- 4511 May, Post-traumatic stress disorder, unspecified F43.10 ; Major depressive disorder, recurrent, moderate F33.1 and Problems related to release from usp Z65.2 [facility] [address], [place] [address]- 7747 May, Chronic pain G89.29 ; Anxiety F41.9 ; Chest pain, unspecified type R07.9 and BMI 40.0-44.9, adult Z68.41 [facility] [address], [place] [address]- 4282 Apr, [facility] [id number] [place] [address] 51397- 1892 Apr, Left leg pain M79.605 [facility] [address], [place] [address]- 4185 Apr, Post-traumatic stress disorder, unspecified F43.10 ; Problems related to release from usp Z65.2 ; Anxiety F41.9 and BMI 40.0-44.9 , adult Z68.41 [facility] [address], [place] [address]- 0838 Apr, [facility] [place] [address] 07283- 0306 19 Apr, 2017 Left leg pain M79.[address] 57472- 8208 13 Apr, 2017 Post-traumatic stress disorder, unspecified F43.10 ; Major depressive disorder, recurrent, moderate F33.1 and Problems related to release from usp Z65.[address] 89550- 3120 12 Apr, [address] 92267- 5791 12 Apr, 2017 Chronic pain G89.29 ; 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[address] 21817- 1434 Mar, Left leg pain M79.[address] 76362- 9330 Mar, Post-traumatic stress disorder, unspecified F43.10 ; Major depressive disorder, recurrent, moderate F33.1 and Problems related to release from usp Z65.2 [facility] [place] [id number] [place] [address] 91309- 9265 Feb, Left leg pain M79.605 [facility] [id number] [place] [address] 55143- 0721 Feb, [facility] [id number] [place] [address] 57330- 7122 Feb, BMI 40.0-44.9, adult Z68.41 ; Chronic pain syndrome G89.4 ; Migraine without aura and without status migrainosus, not intractable G43.009 ; Mitral valve prolapse I34.1 and 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 [facility] [id number] [place] [address] 53612- 7467 Feb, Post-traumatic stress disorder, chronic F43.12 ; Anxiety F41.9 ; Problems related to release from usp Z65.2 and BMI 40.0-44.9, adult Z68.41 [facility] [place] [id number] [place] [address] 15322- 4653 Feb, Post-traumatic stress disorder, unspecified F43.10 ; Major depressive disorder, recurrent, moderate F33.1 and Problems related to release from usp Z65.2 [facility] [id number] [place] [address] 99093- 8166 Feb, Left leg pain M79.605 [facility] [id number] [place] [address] 73584- 2587 Jan, Post-traumatic stress disorder, unspecified F43.10 ; Major depressive disorder, recurrent, moderate F33.1 and Problems related to release from usp Z65.2 [facility] [id number] [place] [address] 98574- 7360 Jan, [place] [address] [address]- 7133 Jan, [facility] [id number] [place] [address] 67558- 4306 Jan, Anxiety F41.9 [facility] [address] [place] [address] 32249- 6754 13 Jan, 2017 Left leg pain M79.605 [facility] [id number] [place] [address] 19355- 6508 Dec, Left leg pain M79.605 [facility] [address] [place] [address] 37319- 7944 Dec, [facility] [id number] [place] [address] 48773- 5852 15 Dec, 2016 Post-traumatic stress disorder, unspecified F43.10 ; Major depressive disorder, recurrent, moderate F33.1 and Problems related to release from usp Z65.2 [facility] [address] [place] [address] 87367- 5361 31 Nov, 2016 Chronic pain G89.29 and Anxiety F41.9 [facility] [id number] [place] [address] 97078- 7140 24 Nov, 2016 Chronic pain G89.29 and Anxiety F41.9 [facility] [address] [place] [address] 78581- 3685 16 Nov, 2016 Post-traumatic stress disorder, unspecified F43.10 ; Major depressive disorder, recurrent, moderate F33.1 and Problems related to release from usp Z65.2 [facility] [address], [place] [address]- 8735 09 Nov, 2016 Other abnormal findings in specimens from other organs, systems and tissues R89.8 ; Other male erectile dysfunction N52.8 ; Body mass index (BMI) of 40.0-44.9 in adult Z68.41 and Morbid (severe) obesity due to excess calories E66.01 [facility] [address] [place] [address] 91454- 6991 02 Nov, 2016 Post-traumatic stress disorder, unspecified F43.10 ; Major depressive disorder, recurrent, moderate F33.1 and Problems related to release from usp Z65.2 [facility] [id number] [address] 29 Oct, 2016 Dental examination Z01.20 [facility] [id number] [place] [address] 86704- 8059 28 Oct, 2016 [facility] [id number] [place] [address] 92325- 8003 28 Oct, 2016 Encounter for immunization Z23 [facility] [id number] [place] [address] 82184- 8820 Oct, Chronic pain G89.29 ; Anxiety F41.9 ; Arrhythmia as indication for cardiac pacemaker replacement I49.9 and Glaucoma H40.9 [facility] [id number] [place] [address] 17998- 8381 Oct, Anxiety F41.9 ; Post-traumatic stress disorder, chronic F43.12 and Problems related to release from usp Z65.2 [facility] [place] [id number] [place] [address] 94368- 3888 07 Oct, 2016 Post-traumatic stress disorder, unspecified F43.10 ; Major depressive disorder, recurrent, moderate F33.1 and Problems related to release from usp Z65.2 [facility] [address] [place] [address] 12605- 6375 Sep, Chronic pain G89.29 and Anxiety F41.9 [facility] [place] [address] [place] [address] 53886- 9202 Sep, Post-traumatic stress disorder, unspecified F43.10 ; Major depressive disorder, recurrent, moderate F33.1 and Problems related to release from usp Z65.2 [facility] [address] [place] [address] 45361- 4569 Sep, Post-traumatic stress disorder, unspecified F43.10 ; Major depressive disorder, recurrent, moderate F33.1 and Problems related to release from usp Z65.2 [facility] [place] [id number] [place] [address] 71852- 8027 Sep, Chronic pain G89.29 [facility] [id number] [place] [address] 86152- 4198 Aug, Dental caries, unspecified K02.9 [facility] [place] [id number] [place] [address] 59027- 5282 Aug, Sleep apnea, obstructive G47.33 ; Obesity E66.9 ; Chronic pain G89.29 ; HTN (hypertension) I10 ; Major depressive disorder, recurrent, moderate F33.1 ; Anxiety F41.9 ; Chronic tension headaches G44.229 ; Mitral valve prolapse I34.1 ; Arrhythmia as indication for cardiac pacemaker replacement I49.9 ; Dental caries, unspecified K02.9 ; Primary insomnia F51.01 and Hyperlipidemia E78.5 [facility] [id number] [place] [address] 45623- 7497 Aug, Post-traumatic stress disorder, unspecified F43.10 ; Major depressive disorder, recurrent, moderate F33.1 and Problems related to release from usp Z65.2 [facility] [place] [id number] [place] [address] 82174- 8277 Aug, Dental examination Z01.20 [facility] [id number] [place] [address] [id number] Aug, Dental examination Z01.20 [place] [id number] [place] [address] 56135- 6928 Aug, Post-traumatic stress disorder, unspecified F43.10 ; Major depressive disorder, recurrent, moderate F33.1 and Problems related to release from usp Z65.2 [facility] [place] [id number] [place] [address] 55337- 3834 Aug, Chronic pain G89.29 and Primary insomnia F51.01 [place] [place] [id number] [place] [address] 43194- 0998 Jul, [facility] [address], [place] [address]- 1002 Jul, [facility] [id number] [place] [address] 29735- 9292 Jul, Nausea R11.0 [facility] [id number] [place] [address] 04614- 9432 Jul, Arrhythmia as indication for cardiac pacemaker replacement I49.9 [facility] [id number] [place] [address] 69048- 1237 Jul, Post-traumatic stress disorder, unspecified F43.10 ; Major depressive disorder, recurrent, moderate F33.1 and Problems related to release from usp Z65.2 [facility] [place] [id number] [place] [address] 99632- 9168 Jul, Anxiety F41.9 [facility] [place] [id number] [place] [address] 11292- 7779 08 Jul, 2016 Chronic pain G89.29 [place] [id number] [place] [address] 85994- 6434 02 Jul, 2016 Sleep apnea, obstructive G47.33 ; Hyperlipidemia E78.5 ; Chronic pain G89.29 ; Blindness and low vision H54.10 ; Major depressive disorder, recurrent, moderate F33.1 ; Anxiety F41.9 ; Mitral valve prolapse I34.1 ; Arrhythmia as indication for cardiac pacemaker replacement I49.9 ; Primary insomnia F51.01 ; Bilateral headaches R51 and Environmental allergies Z91.09 [place] [id number] [place] [address] 12251- 1379 Jul, Post-traumatic stress disorder, unspecified F43.10 ; Major depressive disorder, recurrent, moderate F33.1 and Problems related to release from usp Z65.2 [place] [address] [place] [address] 70749- 6746 June, Post-traumatic stress disorder, chronic F43.12 ; Anxiety F41.9 ; Problems related to release from usp Z65.2 ; Sleep apnea, obstructive G47.33 and Primary insomnia F51.01 [place] [id number] [place] [address] 20894- 8148 June, [place] [id number] [place] [address] 61063- 4199 June, [place] [address] 51123- 4199 June, [place] [address] 60876- 7588 June, Chronic pain G89.[address] 79520- 5949 June, Chronic pain G89.[address] 58646- 8186 June, Lipoma of left lower extremity D17.24 ; Open wound T14.8 and Swelling of left lower extremity M79.89 [place] [id number] [place] [address] 60192- 0919 June, Post-traumatic stress disorder, unspecified F43.10 ; Major depressive disorder, recurrent, moderate F33.1 and Problems related to release from usp Z65.2 [place] [id number] [place] [address] 52105- 0978 May, Lipoma of left lower extremity D17.24 ; Major depressive disorder, recurrent, moderate F33.1 ; Sleep apnea, obstructive G47.33 ; Hyperlipidemia E78.5 ; Obesity E66.9 ; HTN (hypertension) I10 ; Glaucoma H40.9 ; CAD (coronary artery disease) I25.10 ; Chronic tension headaches G44.229 ; Chronic pain G89.29 ; Anxiety F41.9 ; Nausea R11.0 and Primary insomnia F51.01 [place] [id number] [place] [address] 28360- 8689 May, [place] [address], [place] [address]- 7377 May, Chronic pain G89.29 [facility] [place] [id number] [place] [address] 64966- 7775 May, [facility] [place] [id number] [place] [address] 58224- 9983 31 Apr, 2016 Post-traumatic stress disorder, unspecified F43.10 ; Major depressive disorder, recurrent, moderate F33.1 and Problems related to release from usp Z65.2 [facility] [id number] [place] [address] 07682- 4134 28 Apr, 2016 Primary insomnia F51.01 ; Post-traumatic stress disorder, chronic F43.12 and Problems related to release from usp Z65.2 [place] [id number] [place] [address] 00312- 1959 17 Apr, 2016 Post-traumatic stress disorder, unspecified F43.10 ; Major depressive disorder, recurrent, moderate F33.1 and Problems related to release from usp Z65.2 [place] [id number] [place] [address] 49228- 0128 Apr, [place] [id number] [place] [address] 48034- 4176 Apr, Sleep apnea, obstructive G47.33 ; Chronic pain G89.29 ; HTN (hypertension) I10 ; Mitral valve prolapse I34.1 ; Shoulder pain, left M25.512 ; Arrhythmia as indication for cardiac pacemaker replacement I49.9 ; Glaucoma H40.9 ; Bilateral headaches R51 ; Environmental allergies Z91.09 ; Primary insomnia F51.01 and Nausea R11.0 [place] [id number] [place] [address] 63243- 7450 Apr, [facility] [place] [id number] [place] [address] 99137- 4336 Apr, [place] [id number] [place] [address] 39464- 3602 Apr, Post-traumatic stress disorder, unspecified F43.10 ; Major depressive disorder, recurrent, moderate F33.1 and Problems related to release from usp Z65.2 [address] [place] [address] 44252- 3679 Apr, HTN (hypertension) I10 [place] [id number] [place] [address] 89129- 1585 Apr, HTN (hypertension) I10 [place] [id number] [place] [address] 32084- 8453 Mar, Chronic pain G89.29 ; Primary insomnia F51.01 and Problems related to release from usp Z65.2 [place] [id number] [place] [address] 16987- 3816 07 Mar, 2016 Post-traumatic stress disorder, unspecified F43.10 ; Major depressive disorder, recurrent, moderate F33.1 and Problems related to release from usp Z65.2 [place] [id number] [place] [address] 51394- 7457 Feb, Post-traumatic stress disorder, unspecified F43.10 ; Major depressive disorder, recurrent, moderate F33.1 and Problems related to release from usp Z65.[id number] [place] [address] 81122- 1735 Feb, Chronic tension headaches G44.229 [id number] [place] [address] 04384- 0246 Feb, Sleep apnea, obstructive G47.33 ; Obesity [...] pacemaker replacement I49.9 and Primary insomnia F51.01 [place] [id number] [address] Feb, Post-traumatic stress disorder, unspecified F43.10 and Chronic pain G89.29 [facility] [id number] [address] Feb, [facility] [id number] [id number] Feb, Dental caries K02.9 [facility] [id number] [place] [address] 09483- 9598 Feb, [facility] [id number] [place] [address] 18631- 2526 Feb, Post-traumatic stress disorder, unspecified F43.10 ; Major depressive disorder, recurrent, moderate F33.1 and Problems related to release from usp Z65.2 [facility] [id number] [address] 18657- 2695 Jan, Sleep apnea, obstructive G47.33 and Chronic pain G89.29 [facility] [address], [place] [address] Jan, [facility] [id number] [place] [address] 95552- 0423 Jan, Dental examination Z01.20 [facility] [address], [place] [address] 1500 Jan, [facility] [address], [place] [address] 6119 Jan, [facility] [address], [place] [address] 6222 Dec, Post-traumatic stress disorder, unspecified F43.10 ; Major depressive disorder, recurrent, moderate F33.1 and Problems related to release from usp Z65.2 [facility] [address], [place] [address] Dec, Encounter for immunization Z23 ; Problems related to release from usp Z65.2 ; Sleep apnea, obstructive G47.33 and Post-traumatic stress disorder, chronic F43.12 [facility] [id number] [place] [address] 70046- 5005 Dec, Sleep apnea, obstructive G47.33 ; Hyperlipidemia E78.5 ; Chronic pain G89.29 ; Glaucoma H40.9 ; HTN (hypertension) I10 ; Post-traumatic stress disorder, unspecified F43.10 ; Anxiety F41.9 ; Chronic tension headaches G44.229 ; Mitral valve prolapse I34.1 and CAD (coronary artery disease) I25.10 [facility] [id number] [place] [address] 08311- 3367 Dec, Post-traumatic stress disorder, unspecified F43.10 ; Major depressive disorder, recurrent, moderate F33.1 and Problems related to release from usp Z65.2 [facility] [id number] [place] [address] 74508- 6735 Nov, Chronic pain G89.29 [facility] [id number] [place] [address] 01226- 0868 Nov, Post-traumatic stress disorder, unspecified F43.10 ; Major depressive disorder, recurrent, moderate F33.1 and Problems related to release from usp Z65.2 [facility] [id number] [place] [address] 54987- 3974 Oct, [facility] [id number] [place] [address] 57919- 6784 Oct, [facility] [id number] [place] [address] 87945- 6490 16 Oct, 2015 Post-traumatic stress disorder, unspecified F43.10 ; Major depressive disorder, recurrent, moderate F33.1 and Problems related to release from usp Z65.2 [facility] [id number] [place] [address] 23395- 2359 08 Oct, 2015 [facility] [id number] [place] [address] 32196- 0592 Oct, Environmental allergies Z91.09 ; Cough R05 and Open-angle glaucoma of both eyes H40.10X0 [facility] [id number] [place] [address] 72990- 3527 Sep, [facility] [id number] [place] [address] 04912- 2979 Sep, Post-traumatic stress disorder, unspecified F43.10 ; Major depressive disorder, recurrent, moderate F33.1 and Problems related to release from usp Z65.2 [facility] [id number] [place] [address] 75320- 3820 Sep, Chronic pain G89.29 [facility] [address] 43370- 3871 Sep, Pain in left shoulder M25.512 ; Pain in right shoulder M25.511 and Other chronic pain G89.29 [facility] [address] 03950- 4865 Sep, [facility] [address] 66341- 2097 Sep, [facility] [id number] [place] [address] 68748- 4967 Sep, [facility] [id number] [place] [address] [id number] Aug, Dental examination Z01.20 [facility] [id number] [place] [address] 62736- 0045 Aug, Post-traumatic stress disorder, unspecified F43.10 ; Open- angle glaucoma of both eyes H40.10X0 and Problems related to release from usp Z65.2 [facility] [id number] [place] [address] 35146- 3780 Aug, [facility] [id number] [place] [address] 61732- 7927 Aug, Sleep apnea, obstructive G47.33 ; Obesity E66.9 ; Hyperlipidemia E78.5 ; Bilateral headaches R51 ; HTN (hypertension) I10 ; Post- traumatic stress disorder, unspecified F43.10 ; Anxiety F41.9 ; Neuropathy G62.9 ; Glaucoma H40.9 and Chronic pain G89.29 [facility] [address] [id number] Aug, Encounter for dental examination Z01.20 [facility] [id number] [place] [address] 45633- 3144 Aug, Post-traumatic stress disorder, unspecified F43.10 ; Major depressive disorder, recurrent, moderate F33.1 and Problems related to release from usp Z65.2 [facility] [id number] [place] [address] 09835- 9253 Aug, [facility] [id number] [place] [address] 56978- 1713 Jul, [facility] [id number] [place] [address] 07260- 4688 Jul, Post-traumatic stress disorder, unspecified F43.10 and Major depressive disorder, recurrent, moderate F33.1 [facility] [id number] [place] [address] 01512- 2921 Jul, [facility] [id number] [place] [address] 40589- 5264 Jul, [facility] [id number] [place] [address] 85399- 0567 Jul, Chronic pain G89.29 [facility] [id number] [place] [address] 52855- 5192 June, Post-traumatic stress disorder, unspecified F43.10 and Major depressive disorder, recurrent, moderate F33.1 [facility] [id number] [place] [address] 31856- 5227 June, [facility] [id number] [place] [address] 06290- 5754 June, Chronic pain G89.29 [facility] [address], [place] [address] 1746 June, Post-traumatic stress disorder, unspecified F43.10 and Major depressive disorder, recurrent, moderate F33.1 [facility] [address], [place] [address] 1663 May, Post-traumatic stress disorder, unspecified F43.10 and Major depressive disorder, recurrent, moderate F33.1 [facility] [id number], [place] [address] 2094 May, [facility] [id number] [place] [address] 72623- 4866 08 May, 2015 [facility] [id number] [place] [address] 84138- 0296 May, [facility] [id number] [place] [address] 96929- 1127 Apr, [facility] [id number] [place] [address] 39722- 2301 31 Apr, 2015 Post-traumatic stress disorder, unspecified F43.10 and Sleep apnea, obstructive G47.33 [facility] [address], [place] [address]- 4162 31 Apr, 2015 [facility] [id number] [place] [address] 99049- 2749 Apr, Shoulder pain, left M25.512 [facility] [address], [place] [address] 2546 18 Apr, 2015 Post-traumatic stress disorder, unspecified F43.10 and Major depressive disorder, recurrent, moderate F33.1 [facility] [address] [id number] 8916 17 Apr, 2015 [facility] [address], [place] [address]- 2476 11 Apr, 2015 [facility] [id number] [place] [address] 44924- 4733 Apr, [facility] [id number] [place] [address] 80535- 5105 Apr, Left shoulder pain M25.512 [facility] [id number] [place] [address] 00064- 7023 Mar, [facility] [id number] [place] [address] 00329- 8759 Mar, [facility] [id number] [place] [address] 93516- 2768 Mar, [facility] [id number] [place] [address] 60296- 3998 Mar, Sleep apnea, obstructive G47.33 ; Obesity E66.9 ; Chronic pain G89.29 ; Hyperlipidemia E78.5 ; HTN (hypertension) I10 ; Blindness and low vision H54.10 ; Major depressive disorder, recurrent, moderate F33.1 and Anxiety F41.9 [facility] [id number] [place] [address] 99888- 4948 Mar, [facility] [id number] [place] [address] 72706- 7742 Mar, Post-traumatic stress disorder, unspecified F43.10 and Major depressive disorder, recurrent, moderate F33.1 [facility] [id number] [place] [address] 90727- 1047 Mar, [facility] [id number] [place] [address] 52313- 9920 Mar, HTN (hypertension) I10 ; Blindness and low vision H54.10 ; Obesity E66.9 ; Hyperlipidemia E78.5 ; Glaucoma H40.9 ; Chronic pain G89.29 and CAD (coronary artery disease) I25.10 [facility] [id number] [place] [address] 46981- 2522 Feb, [facility] [id number] [place] [address] 05386- 4991 Feb, Post-traumatic stress disorder, unspecified F43.10 ; Obesity E66.9 ; Sleep apnea, obstructive G47.33 and Open-angle glaucoma of both eyes H40.10X0 [facility] [id number] [place] [address] 97548- 4169 Feb, Post-traumatic stress disorder, unspecified F43.10 and Major depressive disorder, recurrent, moderate F33.1 [facility] [id number] [place] [address] 60260- 3908 Feb, [address] 77379- 1636 Feb, [id number] [place] [address] 17014- 1195 Feb, HTN (hypertension) I10 ; Post-traumatic stress disorder, unspecified F43.10 ; Blindness and low vision H54.10 ; Obesity E66.9 ; Hyperlipidemia E78.5 ; Chronic pain G89.29 ; Glaucoma H40.9 ; Mitral valve prolapse I34.1 and Bilateral headaches R51 [id number] [place] [address] 39474- 0776 Feb, [facility] [id number] [place] [address] 23995- 1990 Feb, Post-traumatic stress disorder, unspecified F43.10 and Major depressive disorder, recurrent, moderate F33.1 [facility] [id number] [place] [address] 08748- 6649 Feb, [address] 48227- 6679 Feb, [facility] [id number] [place] [address] 49658- 4073 Jan, [facility] [address] 92766- 8548 Jan, [facility] [id number] [place] [address] 21445- 6907 Jan, Obesity E66.9 ; HTN (hypertension) I10 ; Blindness and low vision H54.10 ; Major depressive disorder, recurrent, moderate F33.1 ; Glaucoma H40.9 ; Hyperlipidemia E78.5 ; Sleep apnea, obstructive G47.33 ; Chronic pain G89.29 ; Anxiety F41.9 ; Chronic tension headaches G44.229 and Cough R05 [facility] [address] 11259- 8228 Jan, [address] 92028- 1463 Jan, [facility] [address] 38594- 3609 Jan, Post-traumatic stress disorder, unspecified F43.10 ; Obesity E66.9 ; Sleep apnea, obstructive G47.33 and Open-angle glaucoma of both eyes H40.10X0 [place] [id number] [place] [address] 78564- 8546 Jan, [address] 59497- 7308 Jan, Post-traumatic stress disorder, unspecified F43.10 and Major depressive disorder, recurrent, moderate F33.1 [address] [id number] [place] [address] 39799- 3459 Dec, [facility] [id number] [place] [address] 89816- 3290 Dec, Sleep apnea, obstructive G47.33 ; Obesity E66.9 ; Hyperlipidemia E78.5 ; Glaucoma H40.9 ; Chronic pain G89.29 ; HTN (hypertension ) I10 ; Blindness and low vision H54.10 ; Anxiety F41.9 and CAD (coronary artery disease) I25.10 [address] [id number] [place] [address] 66833- 4724 Nov, [facility] [id number] [place] [address] 87206- 1777 Nov, [facility] [address] 57826- 5473 Nov, [facility] [id number] [place] [address] 63511- 3545 Nov, [facility] [address] 34001- 9953 Nov, [facility] [address] 93316- 3112 Nov, Encounter for immunization Z23 ; Sleep apnea, obstructive G47.33 ; Obesity E66.9 ; Hyperlipidemia E78.5 ; Glaucoma H40.9 ; Chronic pain G89.29 ; Anxiety F41.9 ; Chronic tension headaches G44.229 and HTN (hypertension ) I10 [facility] [id number] [place] [address] 82968- 9987 Nov, [facility] [id number] [place] [address] 01295- 7161 Nov, [facility] [id number] [place] [address] 70521- 3296 Nov, Dizziness R42 [facility] [id number] [place] [address] 51507- 3951 Nov, [facility] [id number] [place] [address] 88400- 0610 Oct, [facility] [id number] [place] [address] 80975- 5789 Oct, [facility] [id number] [place] [address] 11206- 8738 Oct, [facility] [id number] [place] [address] 70773- 5554 Oct, [facility] [address] 02739- 3986 Oct, Dizziness 780.4 ; Essential hypertension 401.9 ; Obesity 278.00 ; Hyperlipidemia 272.4 ; Chronic pain 338.29 ; Glaucoma 365.9 and Anxiety 300.00 [facility] [address] [id number] 2193 Oct, Essential hypertension 401.9 ; Hyperlipidemia 272.4 ; Glaucoma 365.9 ; Obesity 278.00 ; Chronic pain 338.29 and Allergy to insects V15.06 [facility] [address], [place] [address]- 9687 Sep, [facility] [id number] [place] [address] 284585- 3284 Sep, [facility] [id number] [place] [address] 24814- 8209 Sep, [facility] [id number] [place] [address] 72991- 2389 Sep, [facility] [id number] [place] [address] 61983- 2799 Aug, Essential hypertension 401.9 ; Obesity 278.00 ; Hyperlipidemia 272.4 ; Glaucoma 365.9 ; Lipoma 214.9 ; Mitral valve prolapse 424.0 ; Angina at rest 413.9 ; Lymphedema 457.1 and Chronic pain 338.29 IMMUNIZATIONS No Known Immunizations SOCIAL HISTORY Never Assessed REASON FOR VISIT Labs PLAN OF CARE VITAL SIGNS MEDICATIONS Unknown [...]
--- OUTSIDE RECORDS SUMMARY | 2018-02-04 14:49 | XMS REPORT ---
Author Author ALENA ÁLVAREZ Organization [facility] Address [address] [place] [address] Care Team Providers Care Emt I/99 Name Role Phone ALENA ÁLVAREZ Unavailable PROBLEMS Type Condition ICD9-CM Code [id number] Code Onset Dates Condition Status SNOMED Code Problem Primary insomnia F51.01 Active 1747089 Problem Other male erectile dysfunction N52.8 Active 706996634 Problem Morbid (severe) obesity due to excess calories E66.01 Active 156982704 Problem Sarcoidosis D86.9 Active 54067496 Problem Blindness and low vision H54.10 Active 415470171 Problem Problems related to release from skilled nursing Z65.2 Active [id number] Problem Myocarditis, unspecified chronicity, 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 Active 77729052 Problem Chronic pain G89.29 Active 00118302 Problem 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 Active 109792340 Problem Body mass index (BMI) of 40.0-44.9 in adult Z68.41 Active 059987432 Problem Chronic pain syndrome G89.4 Active 445400529 Problem Migraine without aura and without status migrainosus, not intractable G43.009 Active 401672649 Problem Anxiety F41.9 Active 62475000 Problem Major depressive disorder, recurrent, moderate F33.1 Active 64308677 Problem HTN (hypertension) I10 Active 72936817 Problem Chronic tension headaches G44.229 Active 563014938 Problem CAD (coronary artery disease) I25.10 Active 25409678 Problem Post-traumatic stress disorder, chronic F43.12 Active 323098457 Problem Hyperlipidemia E78.5 Active 09920459 Problem Open-angle glaucoma of both eyes H40.10X0 Active 69685396 Problem Environmental allergies Z91.09 Active 396061998 Problem Sleep apnea, obstructive G47.33 Active 67268353 Problem Mitral valve prolapse I34.1 Active 386104975 Problem Arrhythmia as indication for cardiac pacemaker replacement I49.9 Active 35814135 ALLERGIES No Information ENCOUNTERS Encounter Location Date Diagnosis [facility] [address] [address] Oct, [facility] [address], [place] [address] Oct, [facility] [address] [place] [address] Oct, [facility] [address], [place] [address] Sep, [facility] [address], [place] [address] Sep, [facility] [address], [place] [address] Sep, Post-traumatic stress disorder, unspecified F43.10 ; Major depressive disorder, recurrent, moderate F33.1 and Problems related to release from skilled nursing Z65.2 [facility] [address], [place] [address] Sep, [facility] [address], [place] [address] Aug, [facility] [address] [place] [address] Aug, Sarcoidosis D86.9 [facility] [address], [place] [address] Aug, Sarcoidosis D86.9 [facility] [address], [place] [address] Aug, HTN (hypertension) I10 [facility] [address], [place] [address] Aug, Post-traumatic stress disorder, unspecified F43.10 ; Major depressive disorder, recurrent, moderate F33.1 and Problems related to release from skilled nursing Z65.2 [facility] [address], [place] [address] Aug, [facility] [id number] [place] [address] 11282- 2802 09 Aug, 2017 Left leg pain M79.605 [facility] [id number] [place] [address] 33023- 0426 Jul, Post-traumatic stress disorder, chronic F43.12 ; Anxiety F41.9 ; Problems related to release from skilled nursing Z65.2 and BMI 40.0-44.9, adult Z68.41 [facility] [id number] [place] [address] 71549- 1148 20 Jul, 2017 HTN (hypertension) I10 ; Body mass index (BMI) of 40.0-44.9 in adult Z68.41 and Acute swimmer''s ear of both sides H60.333 [facility] [id number] [place] [address] 58082- 1478 19 Jul, 2017 Glaucoma H40.9 [facility] [id number] [place] [address] 57464- 0115 14 Jul, 2017 [facility] [address] 45765- 2769 13 Jul, 2017 Sarcoidosis D86.9 [facility] [id number] [place] [address] 57073- 6736 12 Jul, 2017 Left leg pain M79.605 [facility] [id number] [place] [address] 97973- 5523 Jul, Sarcoidosis D86.9 [facility] [id number] [place] [address] 57221- 0132 Jul, Post-traumatic stress disorder, unspecified F43.10 ; Major depressive disorder, recurrent, moderate F33.1 and Problems related to release from skilled nursing Z65.2 [facility] [id number] [place] [address] 18977- 6467 June, [facility] [id number] [place] [address] 18632 -3187 June, Sore throat J02.9 and BMI 40.0-44.9, adult Z68.41 [facility] [id number] [place] [address] 13220- 6421 June, [facility] [id number] [place] [address] 64105- 0216 June, [facility] [address] 49555- 1007 June, [facility] [id number] [place] [address] 06690- 1163 June, Left leg pain M79.605 [facility] [id number] [place] [address] 21728- 6644 June, Sarcoidosis D86.9 [facility] [id number] [place] [address] 74414- 1729 June, [facility] [id number] [place] [address] 00211- 0777 June, [facility] [id number] [place] [address] 14393- 9184 June, Left leg pain M79.605 [facility] [id number] [place] [address] 07807- 3185 May, [facility] [id number] [place] [address] 73060- 3281 May, [facility] [id number] [place] [address] 19972- 8092 May, [facility] [id number] [place] [address] 57959- 5457 May, Left leg pain M79.605 [facility] [id number] [place] [address] 52373- 9417 May, Post-traumatic stress disorder, unspecified F43.10 ; Major depressive disorder, recurrent, moderate F33.1 and Problems related to release from skilled nursing Z65.2 [facility] [id number] [place] [address] 43624- 3879 May, Chronic pain G89.29 ; Anxiety F41.9 ; Chest pain, unspecified type R07.9 and BMI 40.0-44.9, adult Z68.41 [facility] [id number] [place] [address] 65225- 7865 30 Apr, 2017 [facility] [address] 16305- 6675 29 Apr, 2017 Left leg pain M79.605 [facility] [address] 74316- 9302 27 Apr, 2017 Post-traumatic stress disorder, unspecified F43.10 ; Problems related to release from skilled nursing Z65.2 ; Anxiety F41.9 and BMI 40.0-44.9 , adult Z68.41 [facility] [id number] [place] [address] 90349- 0656 Apr, [facility] [id number] [place] [address] 80082- 5004 Apr, Left leg pain M79.605 [facility] [id number] [place] [address] 52756- 1484 Apr, Post-traumatic stress disorder, unspecified F43.10 ; Major depressive disorder, recurrent, moderate F33.1 and Problems related to release from skilled nursing Z65.2 [facility] [id number] [place] [address] 09575- 1872 Apr, [facility] [id number] [place] [address] 17394- 8476 Apr, Chronic pain G89.29 ; 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 ; Morbid (severe) obesity due to excess calories E66.01 ; Anxiety F41.9 and BMI 40.0-44.9, adult Z68.41 [facility] [id number] [place] [address] 05356 -0381 Apr, Sore throat J02.9 and BMI 40.0-44.9, adult Z68.41 [facility] [address] 63051- 7971 Apr, Left leg pain M79.605 [facility] [address] [id number] Mar, Dental examination Z01.20 [facility] [address] 63931- 3796 Mar, [facility] [address] 13296 -[address]80 Mar, Cough R05 ; Viral gastroenteritis A08.4 and BMI 40.0-44.9, adult Z68.41 [facility] [address] 20187- 0619 Mar, Left leg pain M79.605 [facility] [address] 78005- 9531 Mar, Post-traumatic stress disorder, unspecified F43.10 ; Major depressive disorder, recurrent, moderate F33.1 and Problems related to release from skilled nursing Z65.2 [facility] [address] 90317- 8279 Feb, Left leg pain M79.605 [facility] [address] 35286- 0771 Feb, [facility] [address] 70927- 2266 Feb, BMI 40.0-44.9, adult Z68.41 ; Chronic pain syndrome G89.4 ; Migraine without aura and without status migrainosus, not intractable G43.009 ; Mitral valve prolapse I34.1 and 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 [facility] [address] 21965- 5390 Feb, Post-traumatic stress disorder, chronic F43.12 ; Anxiety F41.9 ; Problems related to release from skilled nursing Z65.2 and BMI 40.0-44.9, adult Z68.41 [facility] [id number] [place] [address] 96241- 7725 Feb, Post-traumatic stress disorder, unspecified F43.10 ; Major depressive disorder, recurrent, moderate F33.1 and Problems related to release from skilled nursing Z65.2 [facility] [address] 93802- 6133 Feb, Left leg pain M79.605 [facility] [address] 84757- 3112 Jan, Post-traumatic stress disorder, unspecified F43.10 ; Major depressive disorder, recurrent, moderate F33.1 and Problems related to release from skilled nursing Z65.2 [facility] [address] 35031- 5610 Jan, [facility] [id number] [place] [address] 45108- 7235 Jan, [facility] [id number] [place] [address] 64045- 4123 Jan, Anxiety F41.9 [facility] [id number] [place] [address] 10695- 9687 Jan, Left leg pain M79.605 [facility] [id number] [place] [address] 41253804- 4228 Dec, Left leg pain M79.605 [facility] [id number] [place] [address] 05241- 2046 Dec, [facility] [id number] [place] [address] 23015- 5644 Dec, Post-traumatic stress disorder, unspecified F43.10 ; Major depressive disorder, recurrent, moderate F33.1 and Problems related to release from skilled nursing Z65.2 [facility] [id number] [place] [address] 42161- 1894 31 Nov, 2016 Chronic pain G89.29 and Anxiety F41.9 [facility] [address] 81763- 9807 24 Nov, 2016 Chronic pain G89.29 and Anxiety F41.[address] 51945- 8340 16 Nov, 2016 Post-traumatic stress disorder, unspecified F43.10 ; Major depressive disorder, recurrent, moderate F33.1 and Problems related to release from skilled nursing Z65.[address] 42155- 4471 09 Nov, 2016 Other abnormal findings in specimens from other organs, systems and tissues R89.8 ; Other male erectile dysfunction N52.8 ; Body mass index (BMI) of 40.0-44.9 in adult Z68.41 and Morbid (severe) obesity due to excess calories E66.[address] 72899- 1625 02 Nov, 2016 Post-traumatic stress disorder, unspecified F43.10 ; Major depressive disorder, recurrent, moderate F33.1 and Problems related to release from skilled nursing Z65.2 [facility] [address] [id number] 29 Oct, 2016 Dental examination Z01.20 [place] [id number] [place] [address] 93719- 9491 Oct, [address] 76287- 0202 28 Oct, 2016 Encounter for immunization Z23 [address] 85596- 9005 26 Oct, 2016 Chronic pain G89.29 ; Anxiety F41.9 ; Arrhythmia as indication for cardiac pacemaker replacement I49.9 and Glaucoma H40.[address] 98483- 9419 Oct, Anxiety F41.9 ; Post-traumatic stress disorder, chronic F43.12 and Problems related to release from skilled nursing Z65.2 [facility] [id number] [place] [address] 54211- 7823 07 Oct, 2016 Post-traumatic stress disorder, unspecified F43.10 ; Major depressive disorder, recurrent, moderate F33.1 and Problems related to release from skilled nursing Z65.2 [facility] [id number] [place] [address] 52441- 9107 Sep, Chronic pain G89.29 and Anxiety F41.9 [place] [id number] [place] [address] 69796- 3337 Sep, Post-traumatic stress disorder, unspecified F43.10 ; Major depressive disorder, recurrent, moderate F33.1 and Problems related to release from skilled nursing Z65.2 [facility] [id number] [place] [address] 35760- 6832 Sep, Post-traumatic stress disorder, unspecified F43.10 ; Major depressive disorder, recurrent, moderate F33.1 and Problems related to release from skilled nursing Z65.2 [facility] [id number] [place] [address] 17882- 3458 Sep, Chronic pain G89.29 [facility] [id number] [place] [address] 12284- 7847 Aug, Dental caries, unspecified K02.9 [facility] [id number] [place] [address] 94185- 6647 Aug, Sleep apnea, obstructive G47.33 ; Obesity E66.9 ; Chronic pain G89.29 ; HTN (hypertension) I10 ; Major depressive disorder, recurrent, moderate F33.1 ; Anxiety F41.9 ; Chronic tension headaches G44.229 ; Mitral valve prolapse I34.1 ; Arrhythmia as indication for cardiac pacemaker replacement I49.9 ; Dental caries, unspecified K02.9 ; Primary insomnia F51.01 and Hyperlipidemia E78.5 [facility] [address], [place] [address]- 5240 Aug, Post-traumatic stress disorder, unspecified F43.10 ; Major depressive disorder, recurrent, moderate F33.1 and Problems related to release from skilled nursing Z65.2 [facility] [address], [place] [address]- 3171 Aug, Dental examination Z01.20 [facility] [address] [place] [address] [id number] Aug, Dental examination Z01.20 [facility] [address] [place] [address] 59650- 2107 06 Aug, 2016 Post-traumatic stress disorder, unspecified F43.10 ; Major depressive disorder, recurrent, moderate F33.1 and Problems related to release from skilled nursing Z65.2 [facility] [id number] [place] [address] 26838- 4038 Aug, Chronic pain G89.29 and Primary insomnia F51.01 [facility] [id number] [place] [address] 37410- 5386 Jul, [facility] [id number] [place] [address] 40329- 0490 Jul, [facility] [address] [place] [address] 47857- 0498 Jul, Nausea R11.0 [facility] [id number] [place] [address] 84368- 5920 Jul, Arrhythmia as indication for cardiac pacemaker replacement I49.9 [facility] [address] [place] [address] 19002- 4596 Jul, Post-traumatic stress disorder, unspecified F43.10 ; Major depressive disorder, recurrent, moderate F33.1 and Problems related to release from skilled nursing Z65.2 [facility] [address], [place] [address]- 0631 Jul, Anxiety F41.9 [facility] [id number] [place] [address] 31020- 9097 08 Jul, 2016 Chronic pain G89.29 [facility] [address] 09879- 5398 Jul, Sleep apnea, obstructive G47.33 ; Hyperlipidemia E78.5 ; Chronic pain G89.29 ; Blindness and low vision H54.10 ; Major depressive disorder, recurrent, moderate F33.1 ; Anxiety F41.9 ; Mitral valve prolapse I34.1 ; Arrhythmia as indication for cardiac pacemaker replacement I49.9 ; Primary insomnia F51.01 ; Bilateral headaches R51 and Environmental allergies Z91.09 [facility] [address] 32848- 1128 Jul, Post-traumatic stress disorder, unspecified F43.10 ; Major depressive disorder, recurrent, moderate F33.1 and Problems related to release from skilled nursing Z65.2 [facility] [address] 99179- 6366 June, Post-traumatic stress disorder, chronic F43.12 ; Anxiety F41.9 ; Problems related to release from skilled nursing Z65.2 ; Sleep apnea, obstructive G47.33 and Primary insomnia F51.01 [facility] [id number] [place] [address] 42045- 6393 June, [facility] [id number] [place] [address] 21717- 9110 June, [facility] [address] 66748- 5591 June, [facility] [id number] [place] [address] 80447- 5941 June, Chronic pain G89.29 [facility] [id number] [place] [address] 43715- 1453 June, Chronic pain G89.29 [facility] [id number] [place] [address] 17252- 8705 June, Lipoma of left lower extremity D17.24 ; Open wound T14.8 and Swelling of left lower extremity M79.89 [facility] [address] 97737- 0442 June, Post-traumatic stress disorder, unspecified F43.10 ; Major depressive disorder, recurrent, moderate F33.1 and Problems related to release from skilled nursing Z65.2 [facility] [address] 78548- 4685 May, Lipoma of left lower extremity D17.24 ; Major depressive disorder, recurrent, moderate F33.1 ; Sleep apnea, obstructive G47.33 ; Hyperlipidemia E78.5 ; Obesity E66.9 ; HTN (hypertension) I10 ; Glaucoma H40.9 ; CAD (coronary artery disease) I25.10 ; Chronic tension headaches G44.229 ; Chronic pain G89.29 ; Anxiety F41.9 ; Nausea R11.0 and Primary insomnia F51.01 [facility] [address] 68562- 1260 May, [facility] [address] 08785- 0795 May, Chronic pain G89.29 [facility] [address] 80642- 8964 May, [facility] [id number] [place] [address] 84221- 2821 Apr, Post-traumatic stress disorder, unspecified F43.10 ; Major depressive disorder, recurrent, moderate F33.1 and Problems related to release from skilled nursing Z65.2 [facility] [id number] [place] [address] 19444- 6167 Apr, Primary insomnia F51.01 ; Post-traumatic stress disorder, chronic F43.12 and Problems related to release from skilled nursing Z65.2 [facility] [address] 89911- 9639 Apr, Post-traumatic stress disorder, unspecified F43.10 ; Major depressive disorder, recurrent, moderate F33.1 and Problems related to release from skilled nursing Z65.2 [place] [address] [place] [address] 68046- 2636 16 Apr, 2016 [facility] [id number] [place] [address] 93600- 3038 16 Apr, 2016 Sleep apnea, obstructive G47.33 ; Chronic pain G89.29 ; HTN (hypertension) I10 ; Mitral valve prolapse I34.1 ; Shoulder pain, left M25.512 ; Arrhythmia as indication for cardiac pacemaker replacement I49.9 ; Glaucoma H40.9 ; Bilateral headaches R51 ; Environmental allergies Z91.09 ; Primary insomnia F51.01 and Nausea R11.0 [facility] [id number] [place] [address] 64905- 3778 15 Apr, 2016 [facility] [id number] [place] [address] 04188- 9202 Apr, [facility] [id number] [place] [address] 23665- 3459 Apr, Post-traumatic stress disorder, unspecified F43.10 ; Major depressive disorder, recurrent, moderate F33.1 and Problems related to release from skilled nursing Z65.2 [facility] [id number] [place] [address] 99817- 8724 07 Apr, 2016 HTN (hypertension) I10 [facility] [id number] [place] [address] 08482- 9651 Apr, HTN (hypertension) I10 [facility] [id number] [place] [address] 61709- 2179 14 Mar, 2016 Chronic pain G89.29 ; Primary insomnia F51.01 and Problems related to release from skilled nursing Z65.2 [facility] [id number] [place] [address] 38206- 4059 07 Mar, 2016 Post-traumatic stress disorder, unspecified F43.10 ; Major depressive disorder, recurrent, moderate F33.1 and Problems related to release from skilled nursing Z65.2 [facility] [id number] [place] [address] 20553- 3472 Feb, Post-traumatic stress disorder, unspecified F43.10 ; Major depressive disorder, recurrent, moderate F33.1 and Problems related to release from skilled nursing Z65.2 [facility] [id number] [place] [address] 53777- 1555 Feb, Chronic tension headaches G44.[address] 74668- 3152 Feb, Sleep apnea, obstructive G47.33 ; Obesity [...] pacemaker replacement I49.9 and Primary insomnia F51.01 [place] [id number] [place] [address] 32691- 8779 Feb, Post-traumatic stress disorder, unspecified F43.10 and Chronic pain G89.29 [place] [id number] [place] [address] 56726- 4705 Feb, [facility] [id number] [place] [address] [id number] Feb, Dental caries K02.9 [place] [facility] [id number] [place] [address] 03098- 1780 Feb, [address] 60787- 3162 Feb, Post-traumatic stress disorder, unspecified F43.10 ; Major depressive disorder, recurrent, moderate F33.1 and Problems related to release from skilled nursing Z65.[address] 45930- 0949 Jan, Sleep apnea, obstructive G47.33 and Chronic pain G89.29 [place] [address] [place] [id number] Jan, [place] [address] [place] [id number] [place] [phone]- [address] Jan, Dental examination Z01.20 [place] [address] [place] [id number] [place] [phone] Jan, [place] [address] [place] [id number] [place] [phone] Jan, [place] [address] [address] Dec, Post-traumatic stress disorder, unspecified F43.10 ; Major depressive disorder, recurrent, moderate F33.1 and Problems related to release from skilled nursing Z65.[address] [address] Dec, Encounter for immunization Z23 ; Problems related to release from skilled nursing Z65.2 ; Sleep apnea, obstructive G47.33 and Post-traumatic stress disorder, chronic F43.12 [place] [address] [place] [id number] [place] [address]- [address] 18 Dec, 2015 Sleep apnea, obstructive G47.33 ; Hyperlipidemia E78.5 ; Chronic pain G89.29 ; Glaucoma H40.9 ; HTN (hypertension) I10 ; Post-traumatic stress disorder, unspecified F43.10 ; Anxiety F41.9 ; Chronic tension headaches G44.229 ; Mitral valve prolapse I34.1 and CAD (coronary artery disease) I25.10 [place] [address] [place] [id number] [place] [id number]- [phone] 15 Dec, 2015 Post-traumatic stress disorder, unspecified F43.10 ; Major depressive disorder, recurrent, moderate F33.1 and Problems related to release from skilled nursing Z65.2 [place] [id number] [place] [address] 44140- 4043 Nov, Chronic pain G89.29 [place] [id number], [place] [address] 8100 18 Nov, 2015 Post-traumatic stress disorder, unspecified F43.10 ; Major depressive disorder, recurrent, moderate F33.1 and Problems related to release from skilled nursing Z65.2 [place] [address] [id number] [place] [address] 41562- 5999 Oct, [place] [address] [id number] [place] [address] 80255- 9108 Oct, [place] [id number] [place] [address] 89063- 2098 16 Oct, 2015 Post-traumatic stress disorder, unspecified F43.10 ; Major depressive disorder, recurrent, moderate F33.1 and Problems related to release from skilled nursing Z65.2 [place] [id number] [place] [address] 76666- 6733 08 Oct, 2015 [place] [address] [id number] [place] [address] 19945- 2819 07 Oct, 2015 Environmental allergies Z91.09 ; Cough R05 and Open-angle glaucoma of both eyes H40.10X0 [place] [address] [id number] [place] [address] 36629- 8019 Sep, [place] [id number] [place] [address] 88023- 8895 Sep, Post-traumatic stress disorder, unspecified F43.10 ; Major depressive disorder, recurrent, moderate F33.1 and Problems related to release from skilled nursing Z65.2 [place] [id number] [place] [address] 83262- 8256 Sep, Chronic pain G89.29 [place] [address] [id number] [place] [address] 65574- 8144 Sep, Other chronic pain G89.29 ; Pain in right shoulder M25.511 and Pain in left shoulder M25.512 [place] [address] [id number] [place] [address] [id number]- 4680 Sep, [facility] [id number] [place] [address] 82720- 4106 Sep, [facility] [id number] [place] [address] 567898- 2652 Sep, [facility] [id number] [place] [address] [id number] Aug, Dental examination Z01.20 [facility] [id number] [place] [address] 68200- 6928 Aug, Post-traumatic stress disorder, unspecified F43.10 ; Open- angle glaucoma of both eyes H40.10X0 and Problems related to release from skilled nursing Z65.2 [facility] [id number] [place] [address] 68644- 7813 Aug, [place] [id number] [place] [address] 93187- 3398 Aug, Sleep apnea, obstructive G47.33 ; Obesity E66.9 ; Hyperlipidemia E78.5 ; Bilateral headaches R51 ; HTN (hypertension) I10 ; Post- traumatic stress disorder, unspecified F43.10 ; Anxiety F41.9 ; Neuropathy G62.9 ; Glaucoma H40.9 and Chronic pain G89.29 [facility] [id number] [place] [address] [id number] Aug, Encounter for dental examination Z01.20 [facility] [id number] [place] [address] 90867- 3393 Aug, Post-traumatic stress disorder, unspecified F43.10 ; Major depressive disorder, recurrent, moderate F33.1 and Problems related to release from skilled nursing Z65.2 [facility] [id number] [place] [address] 41230- 0768 Aug, [facility] [id number] [place] [address] 82694- 4987 Jul, [facility] [address] [place] [address]- 7069 Jul, Post-traumatic stress disorder, unspecified F43.10 and Major depressive disorder, recurrent, moderate F33.1 [facility] [id number] [place] [address] 19912- 0698 Jul, [facility] [address], [place] [address] 4492 Jul, [facility] [id number] [place] [address] 48178- 1912 Jul, Chronic pain G89.29 [facility] [id number] [place] [address] 88265- 9603 June, Post-traumatic stress disorder, unspecified F43.10 and Major depressive disorder, recurrent, moderate F33.1 [facility] [id number] [place] [address] 10856- 7584 June, [facility] [id number] [place] [address] 90417- 0646 June, Chronic pain G89.29 [facility] [id number] [place] [address] 86137- 1718 June, Post-traumatic stress disorder, unspecified F43.10 and Major depressive disorder, recurrent, moderate F33.1 [facility] [address], [place] [address] 8666 May, Post-traumatic stress disorder, unspecified F43.10 and Major depressive disorder, recurrent, moderate F33.1 [facility] [address], [place] [address]- 0750 May, [facility] [id number] [place] [address] 41302- 8505 May, [facility] [address], [place] [address]- 2487 May, [facility] [id number] [place] [address] 61150- 2658 Apr, [facility] [id number] [place] [address] 16508- 8389 Apr, Post-traumatic stress disorder, unspecified F43.10 and Sleep apnea, obstructive G47.33 [facility] [id number] [place] [address] 84815- 0824 Apr, [facility] [id number] [place] [address] 03170- 7260 Apr, Shoulder pain, left M25.512 [facility] [id number] [place] [address] 66961- 3166 18 Apr, 2015 Post-traumatic stress disorder, unspecified F43.10 and Major depressive disorder, recurrent, moderate F33.1 [facility] [id number] [place] [address] 77170- 5304 17 Apr, 2015 [facility] [id number] [place] [address] 60163- 7865 Apr, [facility] [id number] [place] [address] 91096- 7131 08 Apr, 2015 [facility] [id number] [place] [address] 79490- 0413 07 Apr, 2015 Left shoulder pain M25.512 [facility] [id number] [place] [address] 03752- 7171 Mar, [facility] [id number] [place] [address] 19953- 3634 Mar, [facility] [id number] [place] [address] 00356- 4918 Mar, [facility] [id number] [place] [address] 98623- 9628 12 Mar, 2015 Sleep apnea, obstructive G47.33 ; Obesity E66.9 ; Chronic pain G89.29 ; Hyperlipidemia E78.5 ; HTN (hypertension) I10 ; Blindness and low vision H54.10 ; Major depressive disorder, recurrent, moderate F33.1 and Anxiety F41.9 [place] [id number] [place] [address] 51768- 4856 Mar, [place] [id number] [place] [address] 74509- 5234 Mar, Post-traumatic stress disorder, unspecified F43.10 and Major depressive disorder, recurrent, moderate F33.1 [place] [id number] [place] [address] 38930- 9655 08 Mar, 2015 [place] [id number] [place] [address] 02847- 3865 Mar, HTN (hypertension) I10 ; Blindness and low vision H54.10 ; Obesity E66.9 ; Hyperlipidemia E78.5 ; Glaucoma H40.9 ; Chronic pain G89.29 and CAD (coronary artery disease) I25.10 [place] [id number] [place] [address] 40436- 2050 Feb, [place] [id number] [place] [address] 84614- 2465 Feb, Post-traumatic stress disorder, unspecified F43.10 ; Obesity E66.9 ; Sleep apnea, obstructive G47.33 and Open-angle glaucoma of both eyes H40.10X0 [place] [id number] [place] [address] 84939- 1965 Feb, Post-traumatic stress disorder, unspecified F43.10 and Major depressive disorder, recurrent, moderate F33.1 [place] [address] [place] [address] 04651- 4315 Feb, [place] [id number] [place] [address] 96946- 8094 Feb, [place] [id number] [place] [address] 54958- 6030 Feb, HTN (hypertension) I10 ; Post-traumatic stress disorder, unspecified F43.10 ; Blindness and low vision H54.10 ; Obesity E66.9 ; Hyperlipidemia E78.5 ; Chronic pain G89.29 ; Glaucoma H40.9 ; Mitral valve prolapse I34.1 and Bilateral headaches R51 [place] [id number] [place] [address] 43642- 9244 Feb, [place] [id number] [place] [address] 037951- 8029 Feb, Post-traumatic stress disorder, unspecified F43.10 and Major depressive disorder, recurrent, moderate F33.1 [place] [id number] [place] [address] 42160- 4310 Feb, [place] [address] 360050- 0949 Feb, [place] [address] 50563- 3374 Jan, [place] [id number] [place] [address] 30642- 0805 Jan, [place] [id number] [place] [address] 77051- 8404 Jan, Obesity E66.9 ; HTN (hypertension) I10 ; Blindness and low vision H54.10 ; Major depressive disorder, recurrent, moderate F33.1 ; Glaucoma H40.9 ; Hyperlipidemia E78.5 ; Sleep apnea, obstructive G47.33 ; Chronic pain G89.29 ; Anxiety F41.9 ; Chronic tension headaches G44.229 and Cough R05 [place] [id number] [place] [address] 00668- 6732 Jan, [address] 943231- 0214 Jan, [place] [id number] [place] [address] 54308- 0114 Jan, Post-traumatic stress disorder, unspecified F43.10 ; Obesity E66.9 ; Sleep apnea, obstructive G47.33 and Open-angle glaucoma of both eyes H40.10X0 [place] [id number] [place] [address]- 4525 Jan, [address] 2320 Jan, Post-traumatic stress disorder, unspecified F43.10 and Major depressive disorder, recurrent, moderate F33.1 [place] [id number]- 5733 Dec, [place] [address] [place] [id number]- 0452 Dec, Sleep apnea, obstructive G47.33 ; Obesity E66.9 ; Hyperlipidemia E78.5 ; Glaucoma H40.9 ; Chronic pain G89.29 ; HTN (hypertension ) I10 ; Blindness and low vision H54.10 ; Anxiety F41.9 and CAD (coronary artery disease) I25.10 [place] [address]54- 4108 Nov, [address] 670402- 3626 Nov, [address] 64733- 9752 Nov, [place] [id number] [place] [address] 14381- 1316 Nov, [place] [address]50- 6985 Nov, [address] 15416- 5816 Nov, Encounter for immunization Z23 ; Sleep apnea, obstructive G47.33 ; Obesity E66.9 ; Hyperlipidemia E78.5 ; Glaucoma H40.9 ; Chronic pain G89.29 ; Anxiety F41.9 ; Chronic tension headaches G44.229 and HTN (hypertension ) I10 [place] [id number]- 2546 Nov, [facility] [address], [place] [address]- 8782 14 Nov, 2014 [facility] [id number] [place] [address] 05997- 0624 06 Nov, 2014 Dizziness R42 [facility] [address], [place] [address]- 4897 Nov, [facility] [id number] [place] [address] 77082- 2186 29 Oct, 2014 [facility] [id number] [place] [address] 58128- 0771 28 Oct, 2014 [facility] [id number] [place] [address] 62297- 1102 Oct, [facility] [id number] [place] [address] 92436- 6215 Oct, [facility] [id number] [place] [address] 10399- 9375 17 Oct, 2014 Dizziness 780.4 ; Essential hypertension 401.9 ; Obesity 278.00 ; Hyperlipidemia 272.4 ; Chronic pain 338.29 ; Glaucoma 365.9 and Anxiety 300.00 [facility] [address], [place] [address]- 7727 02 Oct, 2014 Essential hypertension 401.9 ; Hyperlipidemia 272.4 ; Glaucoma 365.9 ; Obesity 278.00 ; Chronic pain 338.29 and Allergy to insects V15.06 [facility] [address], [place] [address]- 6431 Sep, [facility] [id number] [place] [address] 78793- 3858 Sep, [facility] [address], [place] [address]- 0656 Sep, [facility] [id number] [place] [address] 40484- 4871 Sep, [facility] [address] [facility] [id number] [place] [address]- 8647 Aug, Essential hypertension 401.9 ; Obesity 278.00 ; Hyperlipidemia 272.4 ; Glaucoma 365.9 ; Lipoma 214.9 ; Mitral valve prolapse 424.0 ; Angina at rest 413.9 ; Lymphedema 457.1 and Chronic pain 338.29 IMMUNIZATIONS No Known Immunizations SOCIAL HISTORY Never Assessed REASON FOR VISIT Labs/Refill Request PLAN OF CARE VITAL SIGNS MEDICATIONS [...]
--- OUTSIDE RECORDS SUMMARY | 2018-02-04 14:50 | XMS REPORT ---
Author Author ALENA ÁLVAREZ Organization [facility] Address [address] [place] [address] Care Team Providers Care Bartacker Name Role Phone ALENA ÁLVAREZ Unavailable PROBLEMS Type Condition ICD9-CM Code HWJ95-DA Code Onset Dates Condition Status SNOMED Code Problem Primary insomnia F51.01 Active 1516005 Problem Other male erectile dysfunction N52.8 Active 539951688 Problem Morbid (severe) obesity due to excess calories E66.01 Active 035250597 Problem Sarcoidosis D86.9 Active 81351733 Problem Blindness and low vision H54.10 Active 818573207 Problem Problems related to release from snf Z65.2 Active 654962418234943 Problem Myocarditis, unspecified chronicity, 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 Active 54099736 Problem Chronic pain G89.29 Active 84087605 Problem 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 Active 267213093 Problem Body mass index (BMI) of 40.0-44.9 in adult Z68.41 Active 149866503 Problem Chronic pain syndrome G89.4 Active 675620935 Problem Migraine without aura and without status migrainosus, not intractable G43.009 Active 045450339 Problem Anxiety F41.9 Active 45005937 Problem Major depressive disorder, recurrent, moderate F33.1 Active 29232798 Problem HTN (hypertension) I10 Active 49873190 Problem Chronic tension headaches G44.229 Active 742375536 Problem CAD (coronary artery disease) I25.10 Active 68841410 Problem Post-traumatic stress disorder, chronic F43.12 Active 971811925 Problem Hyperlipidemia E78.5 Active 55531254 Problem Open-angle glaucoma of both eyes H40.10X0 Active 82033364 Problem Environmental allergies Z91.09 Active 289480030 Problem Sleep apnea, obstructive G47.33 Active 45087054 Problem Mitral valve prolapse I34.1 Active 419868982 Problem Arrhythmia as indication for cardiac pacemaker replacement I49.9 Active 09482149 ALLERGIES No Information ENCOUNTERS Encounter Location Date Diagnosis [facility] [address] [address] Oct, [facility] [address] [address] Oct, [facility] [address] [address] Sep, [facility] [id number] [place] [address] 58969- 5857 Sep, [facility] [address] [address] 0[address] Sep, [facility] [id number] [place] [address] 87375- 3974 Aug, [facility] [id number] [address] Aug, Sarcoidosis D86.9 [facility] [address], [place] [address] 8[address] Aug, Sarcoidosis D86.9 [facility] [id number] [place] [address] 73298- 7006 Aug, HTN (hypertension) I10 [facility] [address] [address] Aug, Post-traumatic stress disorder, unspecified F43.10 ; Major depressive disorder, recurrent, moderate F33.1 and Problems related to release from snf Z65.2 [facility] [address] [address] Aug, [facility] [address] [address] 8324 Aug, Left leg pain M79.605 [facility] [id number] [address] Jul, Post-traumatic stress disorder, chronic F43.12 ; Anxiety F41.9 ; Problems related to release from snf Z65.2 and BMI 40.0-44.9, adult Z68.41 [place] [id number] [place] [address] 11750- 8989 20 Jul, 2017 HTN (hypertension) I10 ; Body mass index (BMI) of 40.0-44.9 in adult Z68.41 and Acute swimmer''s ear of both sides H60.333 [place] [address] 17751- 4820 19 Jul, 2017 Glaucoma H40.9 [place] [address] 05362- 1906 Jul, [place] [address] 47477- 8022 Jul, Sarcoidosis D86.9 [place] [address] 21776- 8600 Jul, Left leg pain M79.605 [place] [facility] [id number] [place] [address] 45708- 9994 12 Jul, 2017 Sarcoidosis D86.9 [place] [address] 16080- 9889 Jul, Post-traumatic stress disorder, unspecified F43.10 ; Major depressive disorder, recurrent, moderate F33.1 and Problems related to release from snf Z65.2 [place] [id number] [place] [address] 79505- 1886 June, [facility] [id number] [place] [address] 80169 -9903 June, Sore throat J02.9 and BMI 40.0-44.9, adult Z68.41 [place] [id number] [place] [address] 02670- 7035 June, [place] [address] 67334- 8504 June, [place] [address], [place] [address] 7218 June, [facility] [address] [place] [address] 27679- 1709 June, Left leg pain M79.605 [facility] [id number] [place] [address] 01636- 0471 June, Sarcoidosis D86.9 [facility] [id number] [place] [address] 15806- 3160 June, [facility] [id number] [place] [address] 26062- 9396 June, [facility] [id number] [place] [address] 02242- 4138 June, Left leg pain M79.605 [facility] [id number] [place] [address] 58406- 9374 May, [facility] [id number] [place] [address] 20050- 7629 May, [facility] [id number] [place] [address] 52934- 4394 May, [facility] [address] [place] [address] 10707- 5490 May, Left leg pain M79.605 [facility] [id number] [place] [address] 39591- 4721 May, Post-traumatic stress disorder, unspecified F43.10 ; Major depressive disorder, recurrent, moderate F33.1 and Problems related to release from snf Z65.2 [facility] [address] [place] [address] 47933- 6225 May, Chronic pain G89.29 ; Anxiety F41.9 ; Chest pain, unspecified type R07.9 and BMI 40.0-44.9, adult Z68.41 [facility] [id number] [place] [address] 98363- 4633 30 Apr, 2017 [facility] [id number] [place] [address] 07821- 1983 Apr, Left leg pain M79.605 [facility] [id number] [place] [address] 15274- 5304 27 Apr, 2017 Post-traumatic stress disorder, unspecified F43.10 ; Problems related to release from snf Z65.2 ; Anxiety F41.9 and BMI 40.0-44.9 , adult Z68.41 [facility] [id number] [place] [address] 41383- 6159 Apr, [facility] [id number] [place] [address] 59813- 0909 Apr, Left leg pain M79.605 [facility] [id number] [place] [address] 77086- 6344 13 Apr, 2017 Post-traumatic stress disorder, unspecified F43.10 ; Major depressive disorder, recurrent, moderate F33.1 and Problems related to release from snf Z65.2 [facility] [id number] [place] [address] 11626- 6450 Apr, [facility] [id number] [place] [address] 46911- 6125 Apr, Chronic pain G89.29 ; 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 ; Morbid (severe) obesity due to excess calories E66.01 ; Anxiety F41.9 and BMI 40.0-44.9, adult Z68.41 [facility] [id number] [place] [address] 71287 -8690 Apr, Sore throat J02.9 and BMI 40.0-44.9, adult Z68.41 [facility] [id number] [place] [address] 09641- 1687 02 Apr, 2017 Left leg pain M79.605 [facility] [id number] [place] [address] [id number] Mar, Dental examination Z01.20 [facility] [id number] [place] [address] 13464- 7419 Mar, [facility] [id number] [place] [address] 09864 -5094 20 Mar, 2017 Cough R05 ; Viral gastroenteritis A08.4 and BMI 40.0-44.9, adult Z68.41 [place] [address] 48159- 2795 Mar, Left leg pain M79.605 [place] [address] 40585- 5751 Mar, Post-traumatic stress disorder, unspecified F43.10 ; Major depressive disorder, recurrent, moderate F33.1 and Problems related to release from snf Z65.2 [place] [address] 50445- 2251 Feb, Left leg pain M79.605 [facility] [address] 85091- 7342 Feb, [place] [address] 65042- 5175 Feb, BMI 40.0-44.9, adult Z68.41 ; Chronic pain syndrome G89.4 ; Migraine without aura and without status migrainosus, not intractable G43.009 ; Mitral valve prolapse I34.1 and 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 [facility] [id number] [place] [address] 45291- 8596 Feb, Post-traumatic stress disorder, chronic F43.12 ; Anxiety F41.9 ; Problems related to release from snf Z65.2 and BMI 40.0-44.9, adult Z68.41 [place] [id number] [place] [address] 23877- 5187 Feb, Post-traumatic stress disorder, unspecified F43.10 ; Major depressive disorder, recurrent, moderate F33.1 and Problems related to release from snf Z65.2 [facility] [address], [place] [address]- 5864 Feb, Left leg pain M79.605 [facility] [id number] [place] [address] 9036 27 Jan, 2017 Post-traumatic stress disorder, unspecified F43.10 ; Major depressive disorder, recurrent, moderate F33.1 and Problems related to release from snf Z65.2 [facility] [id number] [place] [address] 97502- 1581 Jan, [facility] [id number] [place] [address] 923794- 0036 Jan, [facility] [id number] [place] [address] 81174- 7406 Jan, Anxiety F41.9 [facility] [id number] [place] [address] 76809- 8490 Jan, Left leg pain M79.605 [facility] [id number] [place] [address] 56914- 1876 Dec, Left leg pain M79.605 [facility] [id number] [place] [address] 97309- 4616 Dec, [facility] [id number] [place] [address] 61470- 4552 Dec, Post-traumatic stress disorder, unspecified F43.10 ; Major depressive disorder, recurrent, moderate F33.1 and Problems related to release from snf Z65.2 [facility] [id number] [place] [address] 54369- 5045 Nov, Chronic pain G89.29 and Anxiety F41.9 [facility] [id number] [place] [address] 30717- 3106 24 Nov, 2016 Chronic pain G89.29 and Anxiety F41.9 [facility] [id number] [place] [address] 13774- 3039 16 Nov, 2016 Post-traumatic stress disorder, unspecified F43.10 ; Major depressive disorder, recurrent, moderate F33.1 and Problems related to release from snf Z65.2 [facility] [id number] [place] [address] 94604- 2276 09 Nov, 2016 Other abnormal findings in specimens from other organs, systems and tissues R89.8 ; Other male erectile dysfunction N52.8 ; Body mass index (BMI) of 40.0-44.9 in adult Z68.41 and Morbid (severe) obesity due to excess calories E66.01 [place] [address] 99007- 5051 02 Nov, 2016 Post-traumatic stress disorder, unspecified F43.10 ; Major depressive disorder, recurrent, moderate F33.1 and Problems related to release from snf Z65.2 [facility] [address] [id number] 29 Oct, 2016 Dental examination Z01.20 [facility] [address] 81482- 9970 Oct, [place] [address] 20012- 7958 Oct, Encounter for immunization Z23 [facility] [address] 29245- 6785 Oct, Chronic pain G89.29 ; Anxiety F41.9 ; Arrhythmia as indication for cardiac pacemaker replacement I49.9 and Glaucoma H40.9 [facility] [id number] [place] [address] 54882- 3067 Oct, Anxiety F41.9 ; Post-traumatic stress disorder, chronic F43.12 and Problems related to release from snf Z65.2 [facility] [id number] [place] [address] 11346- 7362 07 Oct, 2016 Post-traumatic stress disorder, unspecified F43.10 ; Major depressive disorder, recurrent, moderate F33.1 and Problems related to release from snf Z65.2 [place] [address], [place] [address]- 8015 Sep, Chronic pain G89.29 and Anxiety F41.9 [place] [id number] [place] [address] 89862- 2359 Sep, Post-traumatic stress disorder, unspecified F43.10 ; Major depressive disorder, recurrent, moderate F33.1 and Problems related to release from snf Z65.2 [place] [id number] [place] [address] 81065- 8572 Sep, Post-traumatic stress disorder, unspecified F43.10 ; Major depressive disorder, recurrent, moderate F33.1 and Problems related to release from snf Z65.2 [place] [id number] [place] [address] 89192- 9848 Sep, Chronic pain G89.29 [place] [id number] [place] [address] 47057- 2113 Aug, Dental caries, unspecified K02.9 [place] [address] [place] [address] 55528- 8489 Aug, Sleep apnea, obstructive G47.33 ; Obesity E66.9 ; Chronic pain G89.29 ; HTN (hypertension) I10 ; Major depressive disorder, recurrent, moderate F33.1 ; Anxiety F41.9 ; Chronic tension headaches G44.229 ; Mitral valve prolapse I34.1 ; Arrhythmia as indication for cardiac pacemaker replacement I49.9 ; Dental caries, unspecified K02.9 ; Primary insomnia F51.01 and Hyperlipidemia E78.5 [place] [address] [address]- 0482 Aug, Post-traumatic stress disorder, unspecified F43.10 ; Major depressive disorder, recurrent, moderate F33.1 and Problems related to release from snf Z65.2 [place] [address], [place] [address]- 1709 Aug, Dental examination Z01.20 [facility] [id number] [id number] 13 Aug, 2016 Dental examination Z01.20 [facility] [id number] [place] [address] 34296- 1901 06 Aug, 2016 Post-traumatic stress disorder, unspecified F43.10 ; Major depressive disorder, recurrent, moderate F33.1 and Problems related to release from snf Z65.2 [place] [id number] [place] [address] 26364- 8715 05 Aug, 2016 Chronic pain G89.29 and Primary insomnia F51.01 [place] [id number] [place] [address] 81241- 5718 Jul, [place] [id number] [place] [address] 34090- 4028 Jul, [place] [id number] [place] [address] 38214- 5101 Jul, Nausea R11.0 [place] [id number] [place] [address] 28339- 2741 Jul, Arrhythmia as indication for cardiac pacemaker replacement I49.9 [place] [id number] [place] [address] 46575- 1761 Jul, Post-traumatic stress disorder, unspecified F43.10 ; Major depressive disorder, recurrent, moderate F33.1 and Problems related to release from snf Z65.2 [place] [address] [place] [address] 90508- 4004 09 Jul, 2016 Anxiety F41.9 [place] [id number] [place] [address] 50202- 1034 08 Jul, 2016 Chronic pain G89.29 [place] [id number] [place] [address] 15785- 5740 02 Jul, 2016 Sleep apnea, obstructive G47.33 ; Hyperlipidemia E78.5 ; Chronic pain G89.29 ; Blindness and low vision H54.10 ; Major depressive disorder, recurrent, moderate F33.1 ; Anxiety F41.9 ; Mitral valve prolapse I34.1 ; Arrhythmia as indication for cardiac pacemaker replacement I49.9 ; Primary insomnia F51.01 ; Bilateral headaches R51 and Environmental allergies Z91.09 [place] [id number] [place] [address] 01551- 1341 Jul, Post-traumatic stress disorder, unspecified F43.10 ; Major depressive disorder, recurrent, moderate F33.1 and Problems related to release from snf Z65.2 [place] [id number] [place] [address] 76078- 3142 June, Post-traumatic stress disorder, chronic F43.12 ; Anxiety F41.9 ; Problems related to release from snf Z65.2 ; Sleep apnea, obstructive G47.33 and Primary insomnia F51.01 [place] [id number] [place] [address] 23058- 8992 June, [place] [id number] [place] [address] 32036- 0953 June, [place] [id number] [place] [address] 30026- 5458 June, [place] [id number] [place] [address] 29058- 5737 June, Chronic pain G89.29 [place] [id number] [place] [address] 41452- 9396 June, Chronic pain G89.29 [place] [id number] [place] [address] 74292- 2307 June, Lipoma of left lower extremity D17.24 ; Open wound T14.8 and Swelling of left lower extremity M79.89 [place] [id number] [place] [address] 40381- 2931 June, Post-traumatic stress disorder, unspecified F43.10 ; Major depressive disorder, recurrent, moderate F33.1 and Problems related to release from snf Z65.2 [place] [id number] [place] [address] 51288- 9627 May, Lipoma of left lower extremity D17.24 ; Major depressive disorder, recurrent, moderate F33.1 ; Sleep apnea, obstructive G47.33 ; Hyperlipidemia E78.5 ; Obesity E66.9 ; HTN (hypertension) I10 ; Glaucoma H40.9 ; CAD (coronary artery disease) I25.10 ; Chronic tension headaches G44.229 ; Chronic pain G89.29 ; Anxiety F41.9 ; Nausea R11.0 and Primary insomnia F51.01 [place] [address] 17575- 1630 May, [address] 35870- 7493 May, Chronic pain G89.[address] 59921- 4878 May, [address] 84428- 2933 Apr, Post-traumatic stress disorder, unspecified F43.10 ; Major depressive disorder, recurrent, moderate F33.1 and Problems related to release from snf Z65.2 [address] [id number] [place] [address] 78543- 1198 Apr, Primary insomnia F51.01 ; Post-traumatic stress disorder, chronic F43.12 and Problems related to release from snf Z65.2 [place] [id number] [place] [address] 37390- 5564 Apr, Post-traumatic stress disorder, unspecified F43.10 ; Major depressive disorder, recurrent, moderate F33.1 and Problems related to release from snf Z65.[address] 91387- 6048 Apr, [address] 92151- 6772 Apr, Sleep apnea, obstructive G47.33 ; Chronic pain G89.29 ; HTN (hypertension) I10 ; Mitral valve prolapse I34.1 ; Shoulder pain, left M25.512 ; Arrhythmia as indication for cardiac pacemaker replacement I49.9 ; Glaucoma H40.9 ; Bilateral headaches R51 ; Environmental allergies Z91.09 ; Primary insomnia F51.01 and Nausea R11.0 [facility] [id number] [place] [address] 09790- 6986 15 Apr, 2016 [facility] [address] 02377- 2944 15 Apr, 2016 [place] [id number] [place] [address] 15956- 6415 Apr, Post-traumatic stress disorder, unspecified F43.10 ; Major depressive disorder, recurrent, moderate F33.1 and Problems related to release from snf Z65.2 [place] [id number] [place] [address] 50755- 9593 07 Apr, 2016 HTN (hypertension) I10 [facility] [id number] [place] [address] 45255- 5120 07 Apr, 2016 HTN (hypertension) I10 [place] [id number] [place] [address] 26267- 5605 14 Mar, 2016 Chronic pain G89.29 ; Primary insomnia F51.01 and Problems related to release from snf Z65.2 [place] [address] [place] [address] 39517- 5107 07 Mar, 2016 Post-traumatic stress disorder, unspecified F43.10 ; Major depressive disorder, recurrent, moderate F33.1 and Problems related to release from snf Z65.2 [place] [id number] [place] [address] 26218- 0405 Feb, Post-traumatic stress disorder, unspecified F43.10 ; Major depressive disorder, recurrent, moderate F33.1 and Problems related to release from snf Z65.2 [place] [address] [place] [address] 01162- 5284 Feb, Chronic tension headaches G44.229 [facility] [id number] [place] [address] 39742- 5793 Feb, Sleep apnea, obstructive G47.33 ; Obesity [...] pacemaker replacement I49.9 and Primary insomnia F51.01 [place] [address] 43245- 1393 Feb, Post-traumatic stress disorder, unspecified F43.10 and Chronic pain G89.29 [place] [address] 68313- 2202 Feb, [facility] [address] [id number] Feb, Dental caries K02.[address] 56977- 3443 06 Feb, 2016 [place] [address] 62784- 4246 Feb, Post-traumatic stress disorder, unspecified F43.10 ; Major depressive disorder, recurrent, moderate F33.1 and Problems related to release from snf Z65.2 [place] [id number] [place] [address] 94910- 0675 Jan, Sleep apnea, obstructive G47.33 and Chronic pain G89.29 [place] [address] 63564- 9548 Jan, [place] [address] 00944- 4965 14 Jan, 2016 Dental examination Z01.20 [place] [address] [place] [address]- 5900 Jan, [facility] [id number] [address] Jan, [place] [id number] [place] [address] Dec, Post-traumatic stress disorder, unspecified F43.10 ; Major depressive disorder, recurrent, moderate F33.1 and Problems related to release from snf Z65.2 [place] [address] [place] [id number] [place] [address] Dec, Encounter for immunization Z23 ; Problems related to release from snf Z65.2 ; Sleep apnea, obstructive G47.33 and Post-traumatic stress disorder, chronic F43.12 [place] [address] [place] [id number] [place] [address] Dec, Sleep apnea, obstructive G47.33 ; Hyperlipidemia E78.5 ; Chronic pain G89.29 ; Glaucoma H40.9 ; HTN (hypertension) I10 ; Post-traumatic stress disorder, unspecified F43.10 ; Anxiety F41.9 ; Chronic tension headaches G44.229 ; Mitral valve prolapse I34.1 and CAD (coronary artery disease) I25.10 [place] [id number] [place] [address] 44395- 4264 Dec, Post-traumatic stress disorder, unspecified F43.10 ; Major depressive disorder, recurrent, moderate F33.1 and Problems related to release from snf Z65.2 [place] [address] [place] [address] [id number] [address] Nov, Chronic pain G89.29 [place] [address] [place] [id number] [place] [address] 02370- 3971 Nov, Post-traumatic stress disorder, unspecified F43.10 ; Major depressive disorder, recurrent, moderate F33.1 and Problems related to release from snf Z65.2 [place] [id number] [place] [address] 04625- 8749 Oct, [facility] [address] [address] Oct, [facility] [id number] [place] [address] 33210- 6501 Oct, Post-traumatic stress disorder, unspecified F43.10 ; Major depressive disorder, recurrent, moderate F33.1 and Problems related to release from snf Z65.2 [facility] [address] [place] [id number] [place] [address] 14990- 6554 08 Oct, 2015 [facility] [id number] [place] [address] 81438- 7787 07 Oct, 2015 Environmental allergies Z91.09 ; Cough R05 and Open-angle glaucoma of both eyes H40.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 [facility] [id number] [place] [address] 96153- 5370 Sep, [facility] [id number] [place] [address] 67057- 4710 Sep, Post-traumatic stress disorder, unspecified F43.10 ; Major depressive disorder, recurrent, moderate F33.1 and Problems related to release from snf Z65.2 [facility] [id number] [place] [address] 02065- 0548 Sep, Chronic pain G89.29 [facility] [id number] [place] [address] 78225- 4582 Sep, Pain in left shoulder M25.512 ; Pain in right shoulder M25.511 and Other chronic pain G89.29 [facility] [address] [address] 4176 Sep, [facility] [id number] [place] [address] 20451- 4466 Sep, [facility] [id number] [place] [address] 64106- 3113 Sep, [facility] [id number] [place] [address] [id number] Aug, Dental examination Z01.20 [facility] [address] [address] 3[address] Aug, Post-traumatic stress disorder, unspecified F43.10 ; Open- angle glaucoma of both eyes H40.10X0 and Problems related to release from snf Z65.2 [facility] [address] [address] 0389 Aug, [facility] [id number] [place] [address] 20597- 2231 Aug, Sleep apnea, obstructive G47.33 ; Obesity E66.9 ; Hyperlipidemia E78.5 ; Bilateral headaches R51 ; HTN (hypertension) I10 ; Post- traumatic stress disorder, unspecified F43.10 ; Anxiety F41.9 ; Neuropathy G62.9 ; Glaucoma H40.9 and Chronic pain G89.29 [facility] [id number] [place] [address] [id number] Aug, Encounter for dental examination Z01.20 [facility] [id number] [place] [address] 62728- 2618 Aug, Post-traumatic stress disorder, unspecified F43.10 ; Major depressive disorder, recurrent, moderate F33.1 and Problems related to release from snf Z65.2 [facility] [address], [place] [address] 1688 Aug, [facility] [address] [address] 6772 Jul, [facility] [address] [address] 2086 Jul, Post-traumatic stress disorder, unspecified F43.10 and Major depressive disorder, recurrent, moderate F33.1 [facility] [address] [address] 2904 Jul, [facility] [address], [place] [address] 0000 Jul, [facility] [id number] [place] [address] 45973- 1413 Jul, Chronic pain G89.29 [facility] [address] [address] [id number] [place] [address] 304196- 4292 June, Post-traumatic stress disorder, unspecified F43.10 and Major depressive disorder, recurrent, moderate F33.1 [facility] [address] [id number] [place] [address] 25788- 0334 June, [facility] [address] [address] [id number] [place] [address] 02985- 3912 June, Chronic pain G89.29 [facility] [address] [address] [id number] [place] [address] 31018- 1318 June, Post-traumatic stress disorder, unspecified F43.10 and Major depressive disorder, recurrent, moderate F33.1 [facility] [address] [address] [id number] [place] [address] 13091- 1350 May, Post-traumatic stress disorder, unspecified F43.10 and Major depressive disorder, recurrent, moderate F33.1 [facility] [address] [address] [id number] [place] [address] 66301- 8503 May, [facility] [address] [id number] [place] [address] 10875- 0521 May, [facility] [address] [id number] [place] [address] 58638- 5526 May, [facility] [address] [id number] [place] [address] 56948- 4066 Apr, [facility] [id number] [place] [address] 75375- 1095 Apr, Post-traumatic stress disorder, unspecified F43.10 and Sleep apnea, obstructive G47.33 [facility] [address] [id number] [place] [address] 55643- 0167 Apr, [place] [id number] [place] [address] 41695- 1915 Apr, Shoulder pain, left M25.512 [facility] [id number] [place] [address] 42212- 2199 Apr, Post-traumatic stress disorder, unspecified F43.10 and Major depressive disorder, recurrent, moderate F33.1 [facility] [address] [address] [id number] [place] [address] 77663- 4471 17 Apr, 2015 [facility] [address] [id number] [place] [address] 76265- 2883 Apr, [facility] [address] [address] [id number] [place] [address] 66111- 9069 Apr, [facility] [address] [id number] [place] [address] 73617- 8662 Apr, Left shoulder pain M25.512 [facility] [address] [address] [id number] [place] [address] 77311- 3047 Mar, [facility] [address] [id number] [place] [address] 73819- 9309 Mar, [facility] [address] [id number] [place] [address] 41857- 8393 Mar, [facility] [address] [address] [id number] [place] [address] 27051- 8952 Mar, Sleep apnea, obstructive G47.33 ; Obesity E66.9 ; Chronic pain G89.29 ; Hyperlipidemia E78.5 ; HTN (hypertension) I10 ; Blindness and low vision H54.10 ; Major depressive disorder, recurrent, moderate F33.1 and Anxiety F41.9 [facility] [address] [id number] [place] [address] 81554- 6389 Mar, [facility] [address] [id number] [place] [address] 91901- 9471 Mar, Post-traumatic stress disorder, unspecified F43.10 and Major depressive disorder, recurrent, moderate F33.1 [place] [address] [address] [id number] [place] [address] 77753- 7069 Mar, [place] [address]260[address]- 8394 Mar, HTN (hypertension) I10 ; Blindness and low vision H54.10 ; Obesity E66.9 ; Hyperlipidemia E78.5 ; Glaucoma H40.9 ; Chronic pain G89.29 and CAD (coronary artery disease) I25.10 [place] [id number] [place] [address] 66953- 0662 Feb, [address] 59445- 6187 Feb, Post-traumatic stress disorder, unspecified F43.10 ; Obesity E66.9 ; Sleep apnea, obstructive G47.33 and Open-angle glaucoma of both eyes H40.10X0 [place] [id number] [place] [address] 79313- 3335 Feb, Post-traumatic stress disorder, unspecified F43.10 and Major depressive disorder, recurrent, moderate F33.1 [place] [id number] [place] [address] 06691- 9846 Feb, [place] [id number] [place] [address] 18927- 0233 Feb, [address] 61345- 0227 Feb, HTN (hypertension) I10 ; Post-traumatic stress disorder, unspecified F43.10 ; Blindness and low vision H54.10 ; Obesity E66.9 ; Hyperlipidemia E78.5 ; Chronic pain G89.29 ; Glaucoma H40.9 ; Mitral valve prolapse I34.1 and Bilateral headaches R51 [place] [id number] [place] [address] 91632- 7006 Feb, [place] [id number]- 2546 Feb, Post-traumatic stress disorder, unspecified F43.10 and Major depressive disorder, recurrent, moderate F33.1 [place] [address] [id number] [place] [address] 49393- 5478 Feb, [place] [address] [id number] [place] [address] 51334- 3172 Feb, [place] [address] 06898- 4753 Jan, [place] [address] [id number] [place] [address] 66044- 5397 Jan, [place] [address] [id number] [place] [address] 404276- 4956 Jan, Obesity E66.9 ; HTN (hypertension) I10 ; Blindness and low vision H54.10 ; Major depressive disorder, recurrent, moderate F33.1 ; Glaucoma H40.9 ; Hyperlipidemia E78.5 ; Sleep apnea, obstructive G47.33 ; Chronic pain G89.29 ; Anxiety F41.9 ; Chronic tension headaches G44.229 and Cough R05 [place] [address] [id number] [place] [address] 92945- 5139 Jan, [place] [address] [id number] [place] [address] 31136- 1306 Jan, [place] [address] [address] [id number] [place] [address] 89893- 8832 Jan, Post-traumatic stress disorder, unspecified F43.10 ; Obesity E66.9 ; Sleep apnea, obstructive G47.33 and Open-angle glaucoma of both eyes H40.10X0 [place] [address] [place] [id number] [place] [address] 15477- 4737 Jan, [place] [address] [place] [id number] [place] [id number]- 0244 Jan, Post-traumatic stress disorder, unspecified F43.10 and Major depressive disorder, recurrent, moderate F33.1 [facility] [id number] [place] [address] 82529- 1100 Dec, [facility] [address] 59018- 4918 Dec, Sleep apnea, obstructive G47.33 ; Obesity E66.9 ; Hyperlipidemia E78.5 ; Glaucoma H40.9 ; Chronic pain G89.29 ; HTN (hypertension ) I10 ; Blindness and low vision H54.10 ; Anxiety F41.9 and CAD (coronary artery disease) I25.10 [facility] [id number] [place] [address] 08267- 0646 Nov, [facility] [address] 82222- 0988 Nov, [facility] [address] 84508- 6760 Nov, [facility] [address] 12155- 5019 Nov, [facility] [address] [id number] [place] [address] 62514- 4323 Nov, [facility] [address] 23578- 1040 Nov, Encounter for immunization Z23 ; Sleep apnea, obstructive G47.33 ; Obesity E66.9 ; Hyperlipidemia E78.5 ; Glaucoma H40.9 ; Chronic pain G89.29 ; Anxiety F41.9 ; Chronic tension headaches G44.229 and HTN (hypertension ) I10 [facility] [address] [id number] [place] [address] 53669- 9829 Nov, [facility] [address] 64463- 3667 Nov, [facility] [address] 39514- 9321 06 Nov, 2014 Dizziness R42 [facility] [address] 32562- 6575 Nov, [facility] [id number] [place] [address] 60995- 2283 Oct, [facility] [id number] [place] [address] 19165- 3982 Oct, [facility] [id number] [place] [address] 17053- 9783 Oct, [facility] [id number] [place] [address] 55790- 4143 Oct, [facility] [id number] [place] [address] 40261- 9992 Oct, Dizziness 780.4 ; Essential hypertension 401.9 ; Obesity 278.00 ; Hyperlipidemia 272.4 ; Chronic pain 338.29 ; Glaucoma 365.9 and Anxiety 300.00 [place] [address] [address] [id number] [place] [address] 15130- 2904 Oct, Essential hypertension 401.9 ; Hyperlipidemia 272.4 ; Glaucoma 365.9 ; Obesity 278.00 ; Chronic pain 338.29 and Allergy to insects V15.06 [facility] [id number] [place] [address] 34857- 8383 Sep, [facility] [id number] [place] [address] 13368- 3095 Sep, [facility] [id number] [place] [address] 83340- 4290 Sep, [facility] [id number] [place] [address] 33911- 0512 Sep, [facility] [id number] [place] [address] 17559- 2217 Aug, Essential hypertension 401.9 ; Obesity 278.00 ; Hyperlipidemia 272.4 ; Glaucoma 365.9 ; Lipoma 214.9 ; Mitral valve prolapse 424.0 ; Angina at rest 413.9 ; Lymphedema 457.1 and Chronic pain 338.29 IMMUNIZATIONS No Known Immunizations SOCIAL HISTORY Never Assessed REASON FOR VISIT Medication Concerns PLAN OF CARE VITAL SIGNS MEDICATIONS Unknown [...] leg Hospitalization History heart cath per Dr. oBurgeois Hospitalization History pacemaker
--- OUTSIDE RECORDS SUMMARY | 2018-02-04 14:50 | XMS REPORT ---
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 Apparel Patternmaker Name Role Phone ALENA ÁLVAREZ Unavailable PROBLEMS Type Condition ICD9-CM Code TBA31-KE Code Onset Dates Condition Status SNOMED Code Problem Primary insomnia F51.01 Active 1105807 Problem Other male erectile dysfunction N52.8 Active 960907610 Problem Morbid (severe) obesity due to excess calories E66.01 Active 396303708 Problem Sarcoidosis D86.9 Active 86712871 Problem Blindness and low vision H54.10 Active 527802436 Problem Problems related to release from alf Z65.2 Active 929049653076266 Problem Myocarditis, unspecified chronicity, 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 Active 60552270 Problem Chronic pain G89.29 Active 46353227 Problem 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 Active 643108514 Problem Body mass index (BMI) of 40.0-44.9 in adult Z68.41 Active 228362639 Problem Chronic pain syndrome G89.4 Active 760896332 Problem Migraine without aura and without status migrainosus, not intractable G43.009 Active 340393231 Problem Anxiety F41.9 Active 01808273 Problem Major depressive disorder, recurrent, moderate F33.1 Active 63638921 Problem HTN (hypertension) I10 Active 25037632 Problem Chronic tension headaches G44.229 Active 105420145 Problem CAD (coronary artery disease) I25.10 Active 37598454 Problem Post-traumatic stress disorder, chronic F43.12 Active 626610212 Problem Hyperlipidemia E78.5 Active 56517069 Problem Open-angle glaucoma of both eyes H40.10X0 Active 00708980 Problem Environmental allergies Z91.09 Active 730207832 Problem Sleep apnea, obstructive G47.33 Active 51766653 Problem Mitral valve prolapse I34.1 Active 891483050 Problem Arrhythmia as indication for cardiac pacemaker replacement I49.9 Active 88704944 ALLERGIES No Information ENCOUNTERS Encounter Location Date Diagnosis [facility] [address] [address] Oct, [facility] [address] [address] Oct, [facility] [address] [address] Oct, [facility] [address] [address] Sep, [facility] [address] [address] Sep, [facility] [address] [address] Sep, Post-traumatic stress disorder, unspecified F43.10 ; Major depressive disorder, recurrent, moderate F33.1 and Problems related to release from alf Z65.2 [facility] [address] [address] Sep, [facility] [address] [address] Aug, [facility] [address] [address] Aug, Sarcoidosis D86.9 [facility] [address] [address] Aug, Sarcoidosis D86.9 [facility] [address] [address] Aug, HTN (hypertension) I10 [facility] [address] [address] Aug, Post-traumatic stress disorder, unspecified F43.10 ; Major depressive disorder, recurrent, moderate F33.1 and Problems related to release from alf Z65.2 [facility] [address] [address] Aug, [facility] [id number] [place] [address] 70521- 1666 09 Aug, 2017 Left leg pain M79.605 [facility] [id number] [place] [address] 46954- 3110 Jul, Post-traumatic stress disorder, chronic F43.12 ; Anxiety F41.9 ; Problems related to release from alf Z65.2 and BMI 40.0-44.9, adult Z68.41 [facility] [id number] [place] [address] 86207- 7786 20 Jul, 2017 HTN (hypertension) I10 ; Body mass index (BMI) of 40.0-44.9 in adult Z68.41 and Acute swimmer''s ear of both sides H60.333 [facility] [id number] [place] [address] 21396- 1387 19 Jul, 2017 Glaucoma H40.9 [facility] [id number] [place] [address] 68753- 2023 14 Jul, 2017 [facility] [address] 22032- 0744 13 Jul, 2017 Sarcoidosis D86.9 [facility] [id number] [place] [address] 41402- 0231 12 Jul, 2017 Left leg pain M79.605 [facility] [id number] [place] [address] 28208- 8411 Jul, Sarcoidosis D86.9 [facility] [id number] [place] [address] 34863- 4275 Jul, Post-traumatic stress disorder, unspecified F43.10 ; Major depressive disorder, recurrent, moderate F33.1 and Problems related to release from alf Z65.2 [facility] [id number] [place] [address] 29679- 1037 June, [facility] [id number] [place] [address] 93622 -3894 June, Sore throat J02.9 and BMI 40.0-44.9, adult Z68.41 [facility] [id number] [place] [address] 25596- 2111 June, [facility] [id number] [place] [address] 25827- 0180 June, [facility] [address] 01548- 5681 June, [facility] [id number] [place] [address] 62144- 1611 June, Left leg pain M79.605 [facility] [id number] [place] [address] 47961- 8215 June, Sarcoidosis D86.9 [facility] [id number] [place] [address] 69605- 0576 June, [facility] [id number] [place] [address] 80422- 6484 June, [facility] [id number] [place] [address] 82435- 0451 June, Left leg pain M79.605 [facility] [id number] [place] [address] 54268- 0693 May, [facility] [id number] [place] [address] 83875- 9775 May, [facility] [id number] [place] [address] 20734- 8733 May, [facility] [id number] [place] [address] 29093- 4358 May, Left leg pain M79.605 [facility] [id number] [place] [address] 67514- 6850 May, Post-traumatic stress disorder, unspecified F43.10 ; Major depressive disorder, recurrent, moderate F33.1 and Problems related to release from alf Z65.2 [facility] [id number] [place] [address] 80781- 1741 May, Chronic pain G89.29 ; Anxiety F41.9 ; Chest pain, unspecified type R07.9 and BMI 40.0-44.9, adult Z68.41 [facility] [id number] [place] [address] 25088- 2198 30 Apr, 2017 [facility] [address] 13005- 6344 29 Apr, 2017 Left leg pain M79.605 [facility] [address] 37895- 0923 27 Apr, 2017 Post-traumatic stress disorder, unspecified F43.10 ; Problems related to release from alf Z65.2 ; Anxiety F41.9 and BMI 40.0-44.9 , adult Z68.41 [facility] [id number] [place] [address] 37153- 4006 Apr, [facility] [id number] [place] [address] 39625- 1813 Apr, Left leg pain M79.605 [facility] [id number] [place] [address] 49513- 5840 Apr, Post-traumatic stress disorder, unspecified F43.10 ; Major depressive disorder, recurrent, moderate F33.1 and Problems related to release from alf Z65.2 [facility] [id number] [place] [address] 99591- 9097 Apr, [facility] [id number] [place] [address] 79644- 7149 Apr, Chronic pain G89.29 ; 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 [id number] [place] [address] 88742 -0694 Apr, Sore throat J02.9 and BMI 40.0-44.9, adult Z68.41 [facility] [address] 95055- 3342 Apr, Left leg pain M79.605 [facility] [address] [id number] Mar, Dental examination Z01.20 [facility] [address] 99849- 9979 Mar, [facility] [address] 24769 -8828 Mar, Cough R05 ; Viral gastroenteritis A08.4 and BMI 40.0-44.9, adult Z68.41 [facility] [address] 73416- 7333 Mar, Left leg pain M79.605 [facility] [address] 04810- 1216 Mar, Post-traumatic stress disorder, unspecified F43.10 ; Major depressive disorder, recurrent, moderate F33.1 and Problems related to release from alf Z65.2 [facility] [address] 78928- 9131 Feb, Left leg pain M79.605 [facility] [address] 55026- 6824 Feb, [facility] [address] 54100- 9465 Feb, BMI 40.0-44.9, adult Z68.41 ; Chronic pain syndrome G89.4 ; Migraine without aura and without status migrainosus, not intractable G43.009 ; Mitral valve prolapse I34.1 and 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 [facility] [address] 79745- 4049 Feb, Post-traumatic stress disorder, chronic F43.12 ; Anxiety F41.9 ; Problems related to release from alf Z65.2 and BMI 40.0-44.9, adult Z68.41 [facility] [id number] [place] [address] 80216- 4695 Feb, Post-traumatic stress disorder, unspecified F43.10 ; Major depressive disorder, recurrent, moderate F33.1 and Problems related to release from alf Z65.2 [facility] [address] 15521- 3799 Feb, Left leg pain M79.605 [facility] [address] 26510- 6929 Jan, Post-traumatic stress disorder, unspecified F43.10 ; Major depressive disorder, recurrent, moderate F33.1 and Problems related to release from alf Z65.2 [facility] [address] 03295- 5902 Jan, [facility] [id number] [place] [address] 44783- 9727 Jan, [facility] [id number] [place] [address] 07283- 1061 Jan, Anxiety F41.9 [facility] [id number] [place] [address] 84067- 6186 Jan, Left leg pain M79.605 [facility] [id number] [place] [address] 70723099- 6600 Dec, Left leg pain M79.605 [facility] [id number] [place] [address] 74654- 1866 Dec, [facility] [id number] [place] [address] 36870- 1970 Dec, Post-traumatic stress disorder, unspecified F43.10 ; Major depressive disorder, recurrent, moderate F33.1 and Problems related to release from alf Z65.2 [facility] [id number] [place] [address] 59179- 0838 31 Nov, 2016 Chronic pain G89.29 and Anxiety F41.9 [facility] [address] 38568- 8518 24 Nov, 2016 Chronic pain G89.29 and Anxiety F41.[address] 86166- 3984 16 Nov, 2016 Post-traumatic stress disorder, unspecified F43.10 ; Major depressive disorder, recurrent, moderate F33.1 and Problems related to release from alf Z65.[address] 91401- 7463 09 Nov, 2016 Other abnormal findings in specimens from other organs, systems and tissues R89.8 ; Other male erectile dysfunction N52.8 ; Body mass index (BMI) of 40.0-44.9 in adult Z68.41 and Morbid (severe) obesity due to excess calories E66.[address] 66405- 0544 02 Nov, 2016 Post-traumatic stress disorder, unspecified F43.10 ; Major depressive disorder, recurrent, moderate F33.1 and Problems related to release from alf Z65.2 [facility] [address] [id number] 29 Oct, 2016 Dental examination Z01.20 [facility] [place] [id number] [place] [address] 77315- 6158 Oct, [address] 56722- 0346 28 Oct, 2016 Encounter for immunization Z23 [address] 54972- 9743 26 Oct, 2016 Chronic pain G89.29 ; Anxiety F41.9 ; Arrhythmia as indication for cardiac pacemaker replacement I49.9 and Glaucoma H40.[address] 61846- 0395 Oct, Anxiety F41.9 ; Post-traumatic stress disorder, chronic F43.12 and Problems related to release from alf Z65.2 [facility] [id number] [place] [address] 90946- 7891 07 Oct, 2016 Post-traumatic stress disorder, unspecified F43.10 ; Major depressive disorder, recurrent, moderate F33.1 and Problems related to release from alf Z65.2 [facility] [id number] [place] [address] 05824- 4862 Sep, Chronic pain G89.29 and Anxiety F41.9 [place] [id number] [place] [address] 15592- 9694 Sep, Post-traumatic stress disorder, unspecified F43.10 ; Major depressive disorder, recurrent, moderate F33.1 and Problems related to release from alf Z65.2 [facility] [id number] [place] [address] 62022- 4211 Sep, Post-traumatic stress disorder, unspecified F43.10 ; Major depressive disorder, recurrent, moderate F33.1 and Problems related to release from alf Z65.2 [facility] [id number] [place] [address] 11416- 5867 Sep, Chronic pain G89.29 [facility] [id number] [place] [address] 07231- 7789 Aug, Dental caries, unspecified K02.9 [facility] [id number] [place] [address] 87994- 7142 Aug, Sleep apnea, obstructive G47.33 ; Obesity E66.9 ; Chronic pain G89.29 ; HTN (hypertension) I10 ; Major depressive disorder, recurrent, moderate F33.1 ; Anxiety F41.9 ; Chronic tension headaches G44.229 ; Mitral valve prolapse I34.1 ; Arrhythmia as indication for cardiac pacemaker replacement I49.9 ; Dental caries, unspecified K02.9 ; Primary insomnia F51.01 and Hyperlipidemia E78.5 [facility] [address] [address]- 7067 Aug, Post-traumatic stress disorder, unspecified F43.10 ; Major depressive disorder, recurrent, moderate F33.1 and Problems related to release from alf Z65.2 [facility] [address] [address]- 8679 Aug, Dental examination Z01.20 [facility] [address] [place] [address] [id number] Aug, Dental examination Z01.20 [facility] [address] [place] [address] 47271- 7112 06 Aug, 2016 Post-traumatic stress disorder, unspecified F43.10 ; Major depressive disorder, recurrent, moderate F33.1 and Problems related to release from alf Z65.2 [facility] [id number] [place] [address] 12102- 8564 Aug, Chronic pain G89.29 and Primary insomnia F51.01 [facility] [id number] [place] [address] 44772- 2342 Jul, [facility] [id number] [place] [address] 07050- 9438 Jul, [facility] [address] [place] [address] 97340- 1069 Jul, Nausea R11.0 [facility] [id number] [place] [address] 66350- 2366 Jul, Arrhythmia as indication for cardiac pacemaker replacement I49.9 [facility] [address] [place] [address] 45673- 9618 Jul, Post-traumatic stress disorder, unspecified F43.10 ; Major depressive disorder, recurrent, moderate F33.1 and Problems related to release from alf Z65.2 [facility] [address] [address]- 7289 Jul, Anxiety F41.9 [facility] [id number] [place] [address] 78046- 0167 08 Jul, 2016 Chronic pain G89.29 [facility] [address] 94436- 3101 Jul, Sleep apnea, obstructive G47.33 ; Hyperlipidemia E78.5 ; Chronic pain G89.29 ; Blindness and low vision H54.10 ; Major depressive disorder, recurrent, moderate F33.1 ; Anxiety F41.9 ; Mitral valve prolapse I34.1 ; Arrhythmia as indication for cardiac pacemaker replacement I49.9 ; Primary insomnia F51.01 ; Bilateral headaches R51 and Environmental allergies Z91.09 [facility] [address] 29996- 5726 Jul, Post-traumatic stress disorder, unspecified F43.10 ; Major depressive disorder, recurrent, moderate F33.1 and Problems related to release from alf Z65.2 [facility] [address] 93914- 9754 June, Post-traumatic stress disorder, chronic F43.12 ; Anxiety F41.9 ; Problems related to release from alf Z65.2 ; Sleep apnea, obstructive G47.33 and Primary insomnia F51.01 [facility] [id number] [place] [address] 02549- 4797 June, [facility] [id number] [place] [address] 38373- 8338 June, [facility] [address] 88421- 6756 June, [facility] [id number] [place] [address] 13530- 7934 June, Chronic pain G89.29 [facility] [id number] [place] [address] 39111- 9841 June, Chronic pain G89.29 [facility] [id number] [place] [address] 35845- 4079 June, Lipoma of left lower extremity D17.24 ; Open wound T14.8 and Swelling of left lower extremity M79.89 [facility] [address] 84945- 9324 June, Post-traumatic stress disorder, unspecified F43.10 ; Major depressive disorder, recurrent, moderate F33.1 and Problems related to release from alf Z65.2 [facility] [address] 14525- 1564 May, Lipoma of left lower extremity D17.24 ; Major depressive disorder, recurrent, moderate F33.1 ; Sleep apnea, obstructive G47.33 ; Hyperlipidemia E78.5 ; Obesity E66.9 ; HTN (hypertension) I10 ; Glaucoma H40.9 ; CAD (coronary artery disease) I25.10 ; Chronic tension headaches G44.229 ; Chronic pain G89.29 ; Anxiety F41.9 ; Nausea R11.0 and Primary insomnia F51.01 [facility] [address] 09952- 8111 May, [facility] [address] 27091- 6506 May, Chronic pain G89.29 [facility] [address] 01308- 1292 May, [facility] [id number] [place] [address] 21025- 5059 Apr, Post-traumatic stress disorder, unspecified F43.10 ; Major depressive disorder, recurrent, moderate F33.1 and Problems related to release from alf Z65.2 [facility] [id number] [place] [address] 42209- 0599 Apr, Primary insomnia F51.01 ; Post-traumatic stress disorder, chronic F43.12 and Problems related to release from alf Z65.2 [facility] [address] 42167- 9267 Apr, Post-traumatic stress disorder, unspecified F43.10 ; Major depressive disorder, recurrent, moderate F33.1 and Problems related to release from alf Z65.2 [facility] [address] [place] [address] 54060- 2695 16 Apr, 2016 [facility] [id number] [place] [address] 64420- 5283 16 Apr, 2016 Sleep apnea, obstructive G47.33 ; Chronic pain G89.29 ; HTN (hypertension) I10 ; Mitral valve prolapse I34.1 ; Shoulder pain, left M25.512 ; Arrhythmia as indication for cardiac pacemaker replacement I49.9 ; Glaucoma H40.9 ; Bilateral headaches R51 ; Environmental allergies Z91.09 ; Primary insomnia F51.01 and Nausea R11.0 [facility] [id number] [place] [address] 50996- 3327 15 Apr, 2016 [facility] [id number] [place] [address] 34627- 7981 Apr, [facility] [id number] [place] [address] 00703- 6631 Apr, Post-traumatic stress disorder, unspecified F43.10 ; Major depressive disorder, recurrent, moderate F33.1 and Problems related to release from alf Z65.2 [facility] [id number] [place] [address] 81052- 2231 07 Apr, 2016 HTN (hypertension) I10 [facility] [id number] [place] [address] 58652- 7598 Apr, HTN (hypertension) I10 [facility] [id number] [place] [address] 76911- 8305 14 Mar, 2016 Chronic pain G89.29 ; Primary insomnia F51.01 and Problems related to release from alf Z65.2 [facility] [id number] [place] [address] 85688- 3812 07 Mar, 2016 Post-traumatic stress disorder, unspecified F43.10 ; Major depressive disorder, recurrent, moderate F33.1 and Problems related to release from alf Z65.2 [facility] [id number] [place] [address] 89335- 1040 Feb, Post-traumatic stress disorder, unspecified F43.10 ; Major depressive disorder, recurrent, moderate F33.1 and Problems related to release from alf Z65.2 [facility] [id number] [place] [address] 84206- 7750 Feb, Chronic tension headaches G44.[address] 23205- 9656 Feb, Sleep apnea, obstructive G47.33 ; Obesity [...] pacemaker replacement I49.9 and Primary insomnia F51.01 [place] [id number] [place] [address] 65587- 8206 Feb, Post-traumatic stress disorder, unspecified F43.10 and Chronic pain G89.29 [place] [id number] [place] [address] 01167- 8816 Feb, [facility] [id number] [place] [address] [id number] Feb, Dental caries K02.9 [facility] [id number] [place] [address] 59673- 1662 Feb, [address] 93046- 5794 Feb, Post-traumatic stress disorder, unspecified F43.10 ; Major depressive disorder, recurrent, moderate F33.1 and Problems related to release from alf Z65.[address] 49644- 5112 Jan, Sleep apnea, obstructive G47.33 and Chronic pain G89.29 [facility] [address] [place] [address] 56319- 0256 Jan, [facility] [id number] [place] [address] 59568- 7116 Jan, Dental examination Z01.20 [facility] [id number] [place] [address] 78652- 9223 Jan, [facility] [id number] [place] [address] 78018- 3219 Jan, [facility] [address] 02715- 6485 Dec, Post-traumatic stress disorder, unspecified F43.10 ; Major depressive disorder, recurrent, moderate F33.1 and Problems related to release from alf Z65.[address] 09531- 6461 Dec, Encounter for immunization Z23 ; Problems related to release from alf Z65.2 ; Sleep apnea, obstructive G47.33 and Post-traumatic stress disorder, chronic F43.12 [facility] [id number] [place] [address] 83260- 6966 18 Dec, 2015 Sleep apnea, obstructive G47.33 ; Hyperlipidemia E78.5 ; Chronic pain G89.29 ; Glaucoma H40.9 ; HTN (hypertension) I10 ; Post-traumatic stress disorder, unspecified F43.10 ; Anxiety F41.9 ; Chronic tension headaches G44.229 ; Mitral valve prolapse I34.1 and CAD (coronary artery disease) I25.10 [place] [address] [place] [id number] [place] [id number] 15 Dec, 2015 Post-traumatic stress disorder, unspecified F43.10 ; Major depressive disorder, recurrent, moderate F33.1 and Problems related to release from alf Z65.2 [place] [id number] [place] [phone] Nov, Chronic pain G89.29 [place] [id number] [phone] 18 Nov, 2015 Post-traumatic stress disorder, unspecified F43.10 ; Major depressive disorder, recurrent, moderate F33.1 and Problems related to release from alf Z65.2 [place] [address] [place] [id number] [place] [address] 16533- 7900 Oct, [place] [address] [place] [id number] [place] [address] 49827- 2683 Oct, [place] [address] [place] [id number] [place] [address] 83081- 6659 16 Oct, 2015 Post-traumatic stress disorder, unspecified F43.10 ; Major depressive disorder, recurrent, moderate F33.1 and Problems related to release from alf Z65.2 [facility] [address] [place] [id number] [place] [address] 97775- 2181 08 Oct, 2015 [place] [address] [place] [id number] [place] [address] 28437- 9381 07 Oct, 2015 Environmental allergies Z91.09 ; Cough R05 and Open-angle glaucoma of both eyes H40.10X0 [facility] [address] [place] [id number] [place] [address] 33874- 1266 Sep, [facility] [address] [place] [id number] [place] [address] 67738- 9321 Sep, Post-traumatic stress disorder, unspecified F43.10 ; Major depressive disorder, recurrent, moderate F33.1 and Problems related to release from alf Z65.2 [place] [id number] [place] [address] 76448- 5927 Sep, Chronic pain G89.29 [facility] [address] [place] [id number] [place] [address] 75326- 6534 Sep, Other chronic pain G89.29 ; Pain in right shoulder M25.511 and Pain in left shoulder M25.512 [place] [address] [place] [id number] [place] [address] [id number]- 3026 Sep, [facility] [id number] [place] [address] 27450- 4044 Sep, [facility] [address] [place] [id number] [place] [address] 003065- 7258 Sep, [facility] [address] [place] [id number] [place] [address] [id number] Aug, Dental examination Z01.20 [facility] [id number] [place] [address] 43489- 0514 Aug, Post-traumatic stress disorder, unspecified F43.10 ; Open- angle glaucoma of both eyes H40.10X0 and Problems related to release from alf Z65.2 [facility] [id number] [place] [address] 07763- 4633 Aug, [place] [address] [place] [id number] [place] [address] 47754- 2144 Aug, Sleep apnea, obstructive G47.33 ; Obesity E66.9 ; Hyperlipidemia E78.5 ; Bilateral headaches R51 ; HTN (hypertension) I10 ; Post- traumatic stress disorder, unspecified F43.10 ; Anxiety F41.9 ; Neuropathy G62.9 ; Glaucoma H40.9 and Chronic pain G89.29 [facility] [id number] [place] [address] [id number] Aug, Encounter for dental examination Z01.20 [facility] [id number] [place] [address] 84978- 6520 Aug, Post-traumatic stress disorder, unspecified F43.10 ; Major depressive disorder, recurrent, moderate F33.1 and Problems related to release from alf Z65.2 [facility] [id number] [place] [address] 53794- 4671 Aug, [facility] [address] [id number] [place] [address] 83484- 4492 Jul, [facility] [address] [place] [address]- 3035 Jul, Post-traumatic stress disorder, unspecified F43.10 and Major depressive disorder, recurrent, moderate F33.1 [facility] [id number] [place] [address] 12531- 0148 Jul, [facility] [address] [address]- 9231 Jul, [facility] [id number] [place] [address] 36770- 1672 Jul, Chronic pain G89.29 [facility] [id number] [place] [address] 61538- 3219 June, Post-traumatic stress disorder, unspecified F43.10 and Major depressive disorder, recurrent, moderate F33.1 [facility] [id number] [place] [address] 50294- 3427 June, [facility] [id number] [place] [address] 74557- 5521 June, Chronic pain G89.29 [facility] [id number] [place] [address] 54126- 6250 June, Post-traumatic stress disorder, unspecified F43.10 and Major depressive disorder, recurrent, moderate F33.1 [facility] [address] [address]- 8862 May, Post-traumatic stress disorder, unspecified F43.10 and Major depressive disorder, recurrent, moderate F33.1 [facility] [address] [address]- 5261 May, [facility] [id number] [place] [address] 37828- 7644 May, [facility] [address] [address]- 4379 May, [facility] [address] [id number] [place] [address] 49638- 4542 Apr, [facility] [id number] [place] [address] 04021- 6518 Apr, Post-traumatic stress disorder, unspecified F43.10 and Sleep apnea, obstructive G47.33 [facility] [id number] [place] [address] 43895- 4781 Apr, [facility] [id number] [place] [address] 70439- 6461 Apr, Shoulder pain, left M25.512 [facility] [id number] [place] [address] 17962- 7926 18 Apr, 2015 Post-traumatic stress disorder, unspecified F43.10 and Major depressive disorder, recurrent, moderate F33.1 [facility] [id number] [place] [address] 61259- 4417 17 Apr, 2015 [facility] [id number] [place] [address] 66679- 0756 Apr, [facility] [id number] [place] [address] 98248- 6442 08 Apr, 2015 [facility] [address] [place] [id number] [place] [address] 02332- 8603 07 Apr, 2015 Left shoulder pain M25.512 [facility] [id number] [place] [address] 47471- 8096 Mar, [facility] [id number] [place] [address] 71524- 8579 Mar, [facility] [id number] [place] [address] 32553- 8584 Mar, [facility] [id number] [place] [address] 85849- 6838 12 Mar, 2015 Sleep apnea, obstructive G47.33 ; Obesity E66.9 ; Chronic pain G89.29 ; Hyperlipidemia E78.5 ; HTN (hypertension) I10 ; Blindness and low vision H54.10 ; Major depressive disorder, recurrent, moderate F33.1 and Anxiety F41.9 [facility] [id number] [place] [address] 14654- 9886 Mar, [facility] [address] [place] [address] [id number] [place] [address] 07006- 2101 Mar, Post-traumatic stress disorder, unspecified F43.10 and Major depressive disorder, recurrent, moderate F33.1 [facility] [address] [place] [address] [id number] [place] [address] 65801- 0978 08 Mar, 2015 [place] [address] [place] [address] [id number] [place] [address] 68376- 4143 Mar, HTN (hypertension) I10 ; Blindness and low vision H54.10 ; Obesity E66.9 ; Hyperlipidemia E78.5 ; Glaucoma H40.9 ; Chronic pain G89.29 and CAD (coronary artery disease) I25.10 [facility] [address] [place] [address] [id number] [place] [address] 54674- 3951 Feb, [facility] [address] [place] [address] [id number] [place] [address] 47029- 5000 Feb, Post-traumatic stress disorder, unspecified F43.10 ; Obesity E66.9 ; Sleep apnea, obstructive G47.33 and Open-angle glaucoma of both eyes H40.10X0 [facility] [address] [place] [address] [id number] [place] [address] 84206- 2883 Feb, Post-traumatic stress disorder, unspecified F43.10 and Major depressive disorder, recurrent, moderate F33.1 [facility] [id number] [place] [address] 57298- 5876 Feb, [place] [id number] [place] [address] 78590- 9987 Feb, [place] [address] [place] [address] [id number] [place] [address] 53573- 8971 Feb, HTN (hypertension) I10 ; Post-traumatic stress disorder, unspecified F43.10 ; Blindness and low vision H54.10 ; Obesity E66.9 ; Hyperlipidemia E78.5 ; Chronic pain G89.29 ; Glaucoma H40.9 ; Mitral valve prolapse I34.1 and Bilateral headaches R51 [facility] [address] [place] [id number] [place] [address] 95718- 7378 Feb, [facility] [address] [place] [address] [id number] [place] [address] 569239- 4775 Feb, Post-traumatic stress disorder, unspecified F43.10 and Major depressive disorder, recurrent, moderate F33.1 [facility] [address] [place] [id number] [place] [address] 19064- 1124 Feb, [facility] [address] 094624- 8778 Feb, [facility] [address] 90813- 3758 Jan, [place] [address] [place] [id number] [place] [address] 53879- 7879 Jan, [facility] [address] [place] [address] [id number] [place] [address] 84191- 4707 Jan, Obesity E66.9 ; HTN (hypertension) I10 ; Blindness and low vision H54.10 ; Major depressive disorder, recurrent, moderate F33.1 ; Glaucoma H40.9 ; Hyperlipidemia E78.5 ; Sleep apnea, obstructive G47.33 ; Chronic pain G89.29 ; Anxiety F41.9 ; Chronic tension headaches G44.229 and Cough R05 [facility] [address] [place] [id number] [place] [address] 95482- 6267 Jan, [address] 665503- 4905 Jan, [place] [id number] [place] [address] 00765- 0197 Jan, Post-traumatic stress disorder, unspecified F43.10 ; Obesity E66.9 ; Sleep apnea, obstructive G47.33 and Open-angle glaucoma of both eyes H40.10X0 [facility] [address] [place] [address] [id number] [place] [id number]761 Jan, [address] 8214 Jan, Post-traumatic stress disorder, unspecified F43.10 and Major depressive disorder, recurrent, moderate F33.1 [place] [id number]- 9799 Dec, [place] [address] [place] [id number]- 7332 Dec, Sleep apnea, obstructive G47.33 ; Obesity E66.9 ; Hyperlipidemia E78.5 ; Glaucoma H40.9 ; Chronic pain G89.29 ; HTN (hypertension ) I10 ; Blindness and low vision H54.10 ; Anxiety F41.9 and CAD (coronary artery disease) I25.10 [place] [address]627- 3237 Nov, [address] 859346- 8876 Nov, [address] 31151- 0227 Nov, [place] [id number] [place] [address] 27451- 1712 Nov, [place] [address]627- 1380 Nov, [address] 50798- 0283 Nov, Encounter for immunization Z23 ; Sleep apnea, obstructive G47.33 ; Obesity E66.9 ; Hyperlipidemia E78.5 ; Glaucoma H40.9 ; Chronic pain G89.29 ; Anxiety F41.9 ; Chronic tension headaches G44.229 and HTN (hypertension ) I10 [place] [id number]- 2546 Nov, [facility] [address] [address]- 7498 14 Nov, 2014 [facility] [id number] [place] [address] 32686- 2437 06 Nov, 2014 Dizziness R42 [facility] [address] [address]- 0969 Nov, [facility] [id number] [place] [address] 71770- 8003 29 Oct, 2014 [facility] [address] [id number] [place] [address] 33561- 9726 28 Oct, 2014 [facility] [id number] [place] [address] 23600- 8885 Oct, [facility] [id number] [place] [address] 91204- 7277 Oct, [facility] [id number] [place] [address] 99639- 4833 17 Oct, 2014 Dizziness 780.4 ; Essential hypertension 401.9 ; Obesity 278.00 ; Hyperlipidemia 272.4 ; Chronic pain 338.29 ; Glaucoma 365.9 and Anxiety 300.00 [facility] [address] [address]- 5634 02 Oct, 2014 Essential hypertension 401.9 ; Hyperlipidemia 272.4 ; Glaucoma 365.9 ; Obesity 278.00 ; Chronic pain 338.29 and Allergy to insects V15.06 [facility] [address] [address]- 4876 Sep, [facility] [id number] [place] [address] 08470- 9926 Sep, [facility] [address] [address]- 9196 Sep, [facility] [id number] [place] [address] 53564- 4832 Sep, [facility] [address] [facility] [id number] [place] [address]- 1679 Aug, Essential hypertension 401.9 ; Obesity 278.00 ; Hyperlipidemia 272.4 ; Glaucoma 365.9 ; Lipoma 214.9 ; Mitral valve prolapse 424.0 ; Angina at rest 413.9 ; Lymphedema 457.1 and Chronic pain 338.29 IMMUNIZATIONS No Known Immunizations SOCIAL HISTORY Never Assessed REASON FOR VISIT Controlled Med Refill PLAN OF CARE VITAL SIGNS MEDICATIONS Medication Instructions Dosage Frequency Start Date End Date Duration Status Oxycodone HCl 5 mg Orally Once a day 1 tablet 24h June, Active RESULTS No Results PROCEDURES No [...]
--- OUTSIDE RECORDS SUMMARY | 2018-02-04 14:51 | XMS REPORT ---
Author Author ALENA ÁLVAREZ Organization [facility] Address [address] [place] [address] Care Team Providers Care Exercise Physiologist Name Role Phone ALENA ÁLVAREZ Unavailable PROBLEMS Type Condition ICD9-CM Code LDW67-[id number] Code Onset Dates Condition Status SNOMED Code Problem Primary insomnia F51.01 Active 6078875 Problem Other male erectile dysfunction N52.8 Active 751841365 Problem Morbid (severe) obesity due to excess calories E66.01 Active 326877008 Problem Sarcoidosis D86.9 Active 48703623 Problem Blindness and low vision H54.10 Active 625709596 Problem Problems related to release from chcf Z65.2 Active 621399793368391 Problem Myocarditis, unspecified chronicity, 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 Active 38144160 Problem Chronic pain G89.29 Active 27412315 Problem 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 Active 459756055 Problem Body mass index (BMI) of 40.0-44.9 in adult Z68.41 Active 698336007 Problem Chronic pain syndrome G89.4 Active 608080577 Problem Migraine without aura and without status migrainosus, not intractable G43.009 Active 009949052 Problem Anxiety F41.9 Active 72323389 Problem Major depressive disorder, recurrent, moderate F33.1 Active 49425541 Problem HTN (hypertension) I10 Active 43712864 Problem Chronic tension headaches G44.229 Active 658498810 Problem CAD (coronary artery disease) I25.10 Active 06099033 Problem Post-traumatic stress disorder, chronic F43.12 Active 362697526 Problem Hyperlipidemia E78.5 Active 63146044 Problem Open-angle glaucoma of both eyes H40.10X0 Active 46999207 Problem Environmental allergies Z91.09 Active 488621507 Problem Sleep apnea, obstructive G47.33 Active 66663237 Problem Mitral valve prolapse I34.1 Active 437750803 Problem Arrhythmia as indication for cardiac pacemaker replacement I49.9 Active 40263555 ALLERGIES No Information ENCOUNTERS Encounter Location Date Diagnosis [facility] [id number] [address] Oct, [facility] [id number] [address] Oct, [facility] [id number] [address] Sep, [facility] [id number] [place] [address] 92862- 4837 Sep, [facility] [address] [address] Sep, [facility] [id number] [place] [address] 53602- 9265 Aug, [facility] [id number] [address] Aug, [facility] [id number] [place] [address] 59586- 0960 Aug, Post-traumatic stress disorder, unspecified F43.10 ; Major depressive disorder, recurrent, moderate F33.1 and Problems related to release from chcf Z65.2 [facility] [address] [address] Aug, [facility] [address] [address] Aug, Left leg pain M79.605 [facility] [address] [address] Jul, Post-traumatic stress disorder, chronic F43.12 ; Anxiety F41.9 ; Problems related to release from chcf Z65.2 and BMI 40.0-44.9, adult Z68.41 [facility] [address] [address] Jul, 2018 HTN (hypertension) I10 ; Body mass index (BMI) of 40.0-44.9 in adult Z68.41 and Acute swimmer''s ear of both sides H60.333 [facility] [id number] [place] [address] 65912- 1864 19 Jul, 2017 Glaucoma H40.9 [facility] [id number] [place] [address] 07061- 7928 14 Jul, 2017 [facility] [id number] [place] [address] 06923- 3600 13 Jul, 2017 Sarcoidosis D86.9 [facility] [id number] [place] [address] 58089- 9514 12 Jul, 2017 Left leg pain M79.605 [facility] [address] 18751- 1517 Jul, Sarcoidosis D86.9 [facility] [id number] [place] [address] 07130- 3797 Jul, Post-traumatic stress disorder, unspecified F43.10 ; Major depressive disorder, recurrent, moderate F33.1 and Problems related to release from chcf Z65.2 [facility] [id number] [place] [address] 85685- 1346 June, [facility] [id number] [place] [address] 52642 -1294 June, Sore throat J02.9 and BMI 40.0-44.9, adult Z68.41 [facility] [id number] [place] [address] 85466- 8909 June, [facility] [id number] [place] [address] 94379- 5832 June, [facility] [id number] [place] [address] 19134- 8744 June, [facility] [id number] [place] [address] 21184- 3718 June, Left leg pain M79.605 [facility] [address] [place] [address]- 9581 June, Sarcoidosis D86.9 [facility] [id number] [place] [address] 42738- 6773 June, [facility] [id number] [place] [address] 27705- 9847 June, [facility] [id number] [place] [address] 29625- 7634 June, Left leg pain M79.605 [facility] [id number] [place] [address] 75736- 1223 May, [facility] [id number] [place] [address] 58137- 9323 May, [facility] [id number] [place] [address] 84010- 6755 May, [facility] [id number] [place] [address] 30779- 5938 May, Left leg pain M79.605 [facility] [address] [place] [address] 16160- 2868 May, Post-traumatic stress disorder, unspecified F43.10 ; Major depressive disorder, recurrent, moderate F33.1 and Problems related to release from chcf Z65.2 [facility] [address] [place] [address] 51191- 3272 May, Chronic pain G89.29 ; Anxiety F41.9 ; Chest pain, unspecified type R07.9 and BMI 40.0-44.9, adult Z68.41 [facility] [id number] [place] [address] 04362- 2855 Apr, [facility] [id number] [place] [address] 99560- 8008 Apr, Left leg pain M79.605 [facility] [id number] [place] [address] 22259- 4267 Apr, Post-traumatic stress disorder, unspecified F43.10 ; Problems related to release from chcf Z65.2 ; Anxiety F41.9 and BMI 40.0-44.9 , adult Z68.41 [place] [id number] [place] [address] 16392- 6195 Apr, [place] [address] 6[address]41- 1409 Apr, Left leg pain M79.[address] 30158- 8617 13 Apr, 2017 Post-traumatic stress disorder, unspecified F43.10 ; Major depressive disorder, recurrent, moderate F33.1 and Problems related to release from chcf Z65.2 [place] [address] 22904- 1247 12 Apr, [address] 46392- 3717 12 Apr, 2017 Chronic pain G89.29 ; 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 ; Morbid (severe) obesity due to excess calories E66.01 ; Anxiety F41.9 and BMI 40.0-44.9, adult Z68.41 [facility] [place] [id number] [place] [address] 29337 -9889 10 Apr, 2017 Sore throat J02.9 and BMI 40.0-44.9, adult Z68.[address] 32227- 1598 02 Apr, 2017 Left leg pain M79.605 [facility] [address] [id number] Mar, Dental examination Z01.20 [place] [address] 81586- 9366 Mar, [facility] [address] [address]993 Mar, Cough R05 ; Viral gastroenteritis A08.4 and BMI 40.0-44.9, adult Z68.41 [place] [id number] [place] [address] 04406- 5693 Mar, Left leg pain M79.605 [place] [id number] [place] [address] 13955- 9053 Mar, Post-traumatic stress disorder, unspecified F43.10 ; Major depressive disorder, recurrent, moderate F33.1 and Problems related to release from chcf Z65.2 [place] [address] 47532- 5251 Feb, Left leg pain M79.605 [place] [address] 03036- 0250 Feb, [place] [address] 05415- 9969 Feb, BMI 40.0-44.9, adult Z68.41 ; Chronic pain syndrome G89.4 ; Migraine without aura and without status migrainosus, not intractable G43.009 ; Mitral valve prolapse I34.1 and 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 [place] [id number] [place] [address] 08740- 0748 Feb, Post-traumatic stress disorder, chronic F43.12 ; Anxiety F41.9 ; Problems related to release from chcf Z65.2 and BMI 40.0-44.9, adult Z68.41 [place] [id number] [place] [address] 71675- 0411 Feb, Post-traumatic stress disorder, unspecified F43.10 ; Major depressive disorder, recurrent, moderate F33.1 and Problems related to release from chcf Z65.2 [place] [id number] [place] [address] 82730- 8724 Feb, Left leg pain M79.605 [place] [address] 00251- 3488 Jan, Post-traumatic stress disorder, unspecified F43.10 ; Major depressive disorder, recurrent, moderate F33.1 and Problems related to release from chcf Z65.2 [facility] [id number] [place] [address] 69569- 0832 Jan, [facility] [id number] [place] [address] 83897- 5508 Jan, [facility] [id number] [place] [address] 20597- 8300 Jan, Anxiety F41.9 [place] [id number] [place] [address] 19963- 6976 Jan, Left leg pain M79.605 [place] [id number] [place] [address] 06248- 4709 Dec, Left leg pain M79.605 [facility] [id number] [place] [address] 69077- 2323 Dec, [facility] [id number] [place] [address] 26252- 4091 Dec, Post-traumatic stress disorder, unspecified F43.10 ; Major depressive disorder, recurrent, moderate F33.1 and Problems related to release from chcf Z65.2 [place] [address] [place] [address] 94483- 6733 Nov, Chronic pain G89.29 and Anxiety F41.9 [facility] [id number] [place] [address] 88674- 1650 24 Nov, 2016 Chronic pain G89.29 and Anxiety F41.9 [facility] [id number] [place] [address] 28132- 7736 16 Nov, 2016 Post-traumatic stress disorder, unspecified F43.10 ; Major depressive disorder, recurrent, moderate F33.1 and Problems related to release from chcf Z65.2 [place] [id number] [place] [address] 34843- 3960 09 Nov, 2016 Other abnormal findings in specimens from other organs, systems and tissues R89.8 ; Other male erectile dysfunction N52.8 ; Body mass index (BMI) of 40.0-44.9 in adult Z68.41 and Morbid (severe) obesity due to excess calories E66.01 [place] [address] [place] [address] 05505- 6314 02 Nov, 2016 Post-traumatic stress disorder, unspecified F43.10 ; Major depressive disorder, recurrent, moderate F33.1 and Problems related to release from chcf Z65.2 [facility] [id number] [place] [address] [id number] Oct, Dental examination Z01.20 [place] [id number] [place] [address] 06992- 6354 Oct, [place] [address] 45479- 9808 Oct, Encounter for immunization Z23 [place] [id number] [place] [address] 03027- 2638 Oct, Chronic pain G89.29 ; Anxiety F41.9 ; Arrhythmia as indication for cardiac pacemaker replacement I49.9 and Glaucoma H40.9 [place] [id number] [place] [address] 06248- 1831 Oct, Anxiety F41.9 ; Post-traumatic stress disorder, chronic F43.12 and Problems related to release from chcf Z65.2 [place] [id number] [place] [address] 04236- 2625 Oct, Post-traumatic stress disorder, unspecified F43.10 ; Major depressive disorder, recurrent, moderate F33.1 and Problems related to release from chcf Z65.2 [place] [id number] [place] [address] 40031- 4132 Sep, Chronic pain G89.29 and Anxiety F41.9 [place] [id number] [place] [address] 12728- 5946 Sep, Post-traumatic stress disorder, unspecified F43.10 ; Major depressive disorder, recurrent, moderate F33.1 and Problems related to release from chcf Z65.2 [place] [address] [place] [address] 32823- 8098 Sep, Post-traumatic stress disorder, unspecified F43.10 ; Major depressive disorder, recurrent, moderate F33.1 and Problems related to release from chcf Z65.2 [place] [id number] [place] [address] 29432- 3730 Sep, Chronic pain G89.29 [place] [id number] [place] [address] 61333- 4979 Aug, Dental caries, unspecified K02.9 [place] [id number] [place] [address] 70772- 1988 Aug, Sleep apnea, obstructive G47.33 ; Obesity E66.9 ; Chronic pain G89.29 ; HTN (hypertension) I10 ; Major depressive disorder, recurrent, moderate F33.1 ; Anxiety F41.9 ; Chronic tension headaches G44.229 ; Mitral valve prolapse I34.1 ; Arrhythmia as indication for cardiac pacemaker replacement I49.9 ; Dental caries, unspecified K02.9 ; Primary insomnia F51.01 and Hyperlipidemia E78.5 [place] [address] [address]- 4269 Aug, Post-traumatic stress disorder, unspecified F43.10 ; Major depressive disorder, recurrent, moderate F33.1 and Problems related to release from chcf Z65.2 [facility] [address] [address]- 6235 Aug, Dental examination Z01.20 [facility] [address] [place] [address] [id number] Aug, Dental examination Z01.20 [facility] [address] [place] [address] 72366- 0378 Aug, Post-traumatic stress disorder, unspecified F43.10 ; Major depressive disorder, recurrent, moderate F33.1 and Problems related to release from chcf Z65.2 [place] [id number] [place] [address] 52442- 8273 Aug, Chronic pain G89.29 and Primary insomnia F51.01 [place] [id number] [place] [address] 42914- 0661 Jul, [place] [address] 77176- 6488 Jul, [place] [address] 87601- 8199 Jul, Nausea R11.0 [place] [address] 94335- 5601 Jul, Arrhythmia as indication for cardiac pacemaker replacement I49.[address] 40545- 0212 Jul, Post-traumatic stress disorder, unspecified F43.10 ; Major depressive disorder, recurrent, moderate F33.1 and Problems related to release from chcf Z65.2 [place] [address] 85469- 8675 09 Jul, 2016 Anxiety F41.9 [place] [id number] [place] [address] 04848- 9002 08 Jul, 2016 Chronic pain G89.29 [place] [id number] [place] [address] 72937- 4189 02 Jul, 2016 Sleep apnea, obstructive G47.33 ; Hyperlipidemia E78.5 ; Chronic pain G89.29 ; Blindness and low vision H54.10 ; Major depressive disorder, recurrent, moderate F33.1 ; Anxiety F41.9 ; Mitral valve prolapse I34.1 ; Arrhythmia as indication for cardiac pacemaker replacement I49.9 ; Primary insomnia F51.01 ; Bilateral headaches R51 and Environmental allergies Z91.[address] 42062- 4324 Jul, Post-traumatic stress disorder, unspecified F43.10 ; Major depressive disorder, recurrent, moderate F33.1 and Problems related to release from chcf Z65.2 [place] [address] [place] [address] 48624- 2962 June, Post-traumatic stress disorder, chronic F43.12 ; Anxiety F41.9 ; Problems related to release from chcf Z65.2 ; Sleep apnea, obstructive G47.33 and Primary insomnia F51.01 [place] [id number] [address]- 6307 June, [place] [id number] [place] [address] 63256- 8121 June, [place] [id number] [place] [address] 71862- 6449 June, [place] [id number] [place] [address] 77688- 7707 June, Chronic pain G89.29 [place] [id number] [place] [address] 81596- 3190 June, Chronic pain G89.29 [place] [id number] [place] [address] 52247- 6948 June, Lipoma of left lower extremity D17.24 ; Open wound T14.8 and Swelling of left lower extremity M79.89 [place] [id number] [place] [address] 35617- 5124 June, Post-traumatic stress disorder, unspecified F43.10 ; Major depressive disorder, recurrent, moderate F33.1 and Problems related to release from chcf Z65.2 [place] [address] [place] [address] 98275- 8309 May, Lipoma of left lower extremity D17.24 ; Major depressive disorder, recurrent, moderate F33.1 ; Sleep apnea, obstructive G47.33 ; Hyperlipidemia E78.5 ; Obesity E66.9 ; HTN (hypertension) I10 ; Glaucoma H40.9 ; CAD (coronary artery disease) I25.10 ; Chronic tension headaches G44.229 ; Chronic pain G89.29 ; Anxiety F41.9 ; Nausea R11.0 and Primary insomnia F51.[address] [place] [address] 72199- 4908 May, [place] [id number] [place] [address] 79240- 4096 May, Chronic pain G89.29 [place] [id number] [place] [address] 15650- 3044 May, [place] [id number] [place] [address] 00703- 6018 31 Apr, 2016 Post-traumatic stress disorder, unspecified F43.10 ; Major depressive disorder, recurrent, moderate F33.1 and Problems related to release from chcf Z65.2 [place] [id number] [place] [address] 55273- 2537 Apr, Primary insomnia F51.01 ; Post-traumatic stress disorder, chronic F43.12 and Problems related to release from chcf Z65.2 [place] [address] [place] [address] 31645- 2504 17 Apr, 2016 Post-traumatic stress disorder, unspecified F43.10 ; Major depressive disorder, recurrent, moderate F33.1 and Problems related to release from chcf Z65.2 [place] [id number] [place] [address] 78233- 7874 Apr, [place] [id number] [place] [address] 62763- 7740 Apr, Sleep apnea, obstructive G47.33 ; Chronic pain G89.29 ; HTN (hypertension) I10 ; Mitral valve prolapse I34.1 ; Shoulder pain, left M25.512 ; Arrhythmia as indication for cardiac pacemaker replacement I49.9 ; Glaucoma H40.9 ; Bilateral headaches R51 ; Environmental allergies Z91.09 ; Primary insomnia F51.01 and Nausea R11.0 [place] [address]- 3330 Apr, [place] [id number] [place] [address] 21420- 1134 Apr, [place] [id number] [place] [address] 89046- 7088 Apr, Post-traumatic stress disorder, unspecified F43.10 ; Major depressive disorder, recurrent, moderate F33.1 and Problems related to release from chcf Z65.2 [place] [id number] [place] [address] 21001- 0633 Apr, HTN (hypertension) I10 [place] [id number] [place] [address] 26376- 5513 Apr, HTN (hypertension) I10 [place] [id number] [place] [address] 19428- 0034 14 Mar, 2016 Chronic pain G89.29 ; Primary insomnia F51.01 and Problems related to release from chcf Z65.2 [place] [address] [place] [address] 04722- 4166 07 Mar, 2016 Post-traumatic stress disorder, unspecified F43.10 ; Major depressive disorder, recurrent, moderate F33.1 and Problems related to release from chcf Z65.2 [place] [address] [place] [address] 35066- 2991 Feb, Post-traumatic stress disorder, unspecified F43.10 ; Major depressive disorder, recurrent, moderate F33.1 and Problems related to release from chcf Z65.2 [place] [address] [place] [address] 57132- 8014 Feb, Chronic tension headaches G44.229 [place] [id number] [place] [address] 11147- 8506 Feb, Sleep apnea, obstructive G47.33 ; Obesity [...] pacemaker replacement I49.9 and Primary insomnia F51.01 [facility] [id number] [place] [address] 57088- 4831 17 Feb, 2016 Post-traumatic stress disorder, unspecified F43.10 and Chronic pain G89.29 [place] [address] 89167- 2155 Feb, [facility] [address] [id number] Feb, Dental caries K02.9 [place] [address] 32624- 2702 Feb, [address] 33656- 5842 Feb, Post-traumatic stress disorder, unspecified F43.10 ; Major depressive disorder, recurrent, moderate F33.1 and Problems related to release from chcf Z65.2 [place] [address] [address] [place] [id number] [place] [phone] Jan, Sleep apnea, obstructive G47.33 and Chronic pain G89.29 [place] [address] [address] [place] [id number] [place] [phone] Jan, [place] [address] [address] Jan, Dental examination Z01.20 [place] [address] [address] Jan, [facility] [address] [address] Jan, [place] [address] [address] Dec, Post-traumatic stress disorder, unspecified F43.10 ; Major depressive disorder, recurrent, moderate F33.1 and Problems related to release from [facility] Z65.2 [place] [address] [address] [place] [id number] [place] [address] 53674- 2073 Dec, Encounter for immunization Z23 ; Problems related to release from [facility] Z65.2 ; Sleep apnea, obstructive G47.33 and Post-traumatic stress disorder, chronic F43.12 [place] [address] [address]- [address]75 Dec, Sleep apnea, obstructive G47.33 ; Hyperlipidemia E78.5 ; Chronic pain G89.29 ; Glaucoma H40.9 ; HTN (hypertension) I10 ; Post-traumatic stress disorder, unspecified F43.10 ; Anxiety F41.9 ; Chronic tension headaches G44.229 ; Mitral valve prolapse I34.1 and CAD (coronary artery disease) I25.10 [place] [address] [address]25- 3726 Dec, Post-traumatic stress disorder, unspecified F43.10 ; Major depressive disorder, recurrent, moderate F33.1 and Problems related to release from [facility] Z65.2 [place] [address] [place] [id number] [place] [address] 54339- 0214 Nov, Chronic pain G89.29 [place] [address] [place] [id number] [place] [address] 88929- 8111 Nov, Post-traumatic stress disorder, unspecified F43.10 ; Major depressive disorder, recurrent, moderate F33.1 and Problems related to release from [facility] Z65.2 [place] [address] [place] [id number] [place] [address] 23044- 7721 Oct, [place] [address] [place] [id number] [place] [address] 76681- 1733 Oct, [place] [address] [place] [id number] [place] [address] 33192- 1685 Oct, Post-traumatic stress disorder, unspecified F43.10 ; Major depressive disorder, recurrent, moderate F33.1 and Problems related to release from [facility] Z65.2 [facility] [address] [id number] [place] [address] 59228- 7057 08 Oct, 2015 [facility] [address] [id number] [place] [address] 31202- 7005 07 Oct, 2015 Environmental allergies Z91.09 ; Cough R05 and Open-angle glaucoma of both eyes H40.10X0 [facility] [address] [id number] [place] [place] [address] 90782- 5185 Sep, [facility] [address] [place] [id number] [place] [address] 45116- 0561 Sep, Post-traumatic stress disorder, unspecified F43.10 ; Major depressive disorder, recurrent, moderate F33.1 and Problems related to release from [facility] Z65.2 [place] [address] [place] [id number] [place] [address] 27257- 8582 Sep, Chronic pain G89.29 [facility] [address] [place] [id number] [place] [address] 18122- 0679 Sep, Pain in left shoulder M25.512 ; Pain in right shoulder M25.511 and Other chronic pain G89.29 [facility] [address] [id number] [place] [address] 66218- 6081 Sep, [place] [address] [place] [id number] [place] [place] [address] 90416- 3160 Sep, [facility] [address] [id number] [place] [address] 06641- 6494 Sep, [facility] [id number] [place] [address] [id number] Aug, Dental examination Z01.20 [facility] [address] [place] [id number] [place] [address] 41462- 0071 Aug, Post-traumatic stress disorder, unspecified F43.10 ; Open- angle glaucoma of both eyes H40.10X0 and Problems related to release from [facility] Z65.2 [facility] [address] [address] 6089 Aug, [facility] [address] [place] [id number] [place] [address] 86943- 0121 Aug, Sleep apnea, obstructive G47.33 ; Obesity E66.9 ; Hyperlipidemia E78.5 ; Bilateral headaches R51 ; HTN (hypertension) I10 ; Post- traumatic stress disorder, unspecified F43.10 ; Anxiety F41.9 ; Neuropathy G62.9 ; Glaucoma H40.9 and Chronic pain G89.29 [facility] [address] [id number] Aug, Encounter for dental examination Z01.20 [facility] [address] [place] [id number] [place] [address] 52005- 3810 Aug, Post-traumatic stress disorder, unspecified F43.10 ; Major depressive disorder, recurrent, moderate F33.1 and Problems related to release from [facility] Z65.2 [facility] [address] [address] 0274 Aug, [facility] [address] [place] [id number] [place] [address] 57974- 7133 Jul, [facility] [id number] [address]- 7485 Jul, Post-traumatic stress disorder, unspecified F43.10 and Major depressive disorder, recurrent, moderate F33.1 [facility] [address] [address] 1752 Jul, [facility] [id number] [address]- 8936 Jul, [facility] [address] [address]- 5008 Jul, Chronic pain G89.29 [facility] [address] [address] 0231 June, Post-traumatic stress disorder, unspecified F43.10 and Major depressive disorder, recurrent, moderate F33.1 [facility] [id number] [place] [address] 71792- 9003 June, [facility] [address] [place] [id number] [place] [address] 34086- 5563 June, Chronic pain G89.29 [facility] [address] [place] [id number] [place] [address] 44865- 7636 June, Post-traumatic stress disorder, unspecified F43.10 and Major depressive disorder, recurrent, moderate F33.1 [facility] [address] [place] [id number] [place] [address] 99434- 8418 May, Post-traumatic stress disorder, unspecified F43.10 and Major depressive disorder, recurrent, moderate F33.1 [facility] [address] [id number] [place] [address] 95674- 4176 May, [facility] [address] [place] [id number] [place] [address] 81494- 1360 May, [facility] [address] [place] [id number] [place] [address] 45467- 9710 May, [facility] [address] [id number] [place] [address] 31881- 4793 Apr, [facility] [id number] [place] [address] 48493- 6745 Apr, Post-traumatic stress disorder, unspecified F43.10 and Sleep apnea, obstructive G47.33 [facility] [id number] [place] [address] 83460- 8095 Apr, [facility] [address] [place] [id number] [place] [address] 01424- 3706 Apr, Shoulder pain, left M25.512 [facility] [address] [place] [id number] [place] [address] 98300- 6404 Apr, Post-traumatic stress disorder, unspecified F43.10 and Major depressive disorder, recurrent, moderate F33.1 [facility] [address] [address]- 0756 Apr, [facility] [address] [place] [id number] [place] [address] 44831- 0915 Apr, [facility] [address] [place] [id number] [place] [address] 84097- 8614 Apr, [facility] [address] [place] [id number] [place] [address] 39953- 5980 Apr, Left shoulder pain M25.512 [facility] [address] [place] [id number] [place] [address] 42917- 5441 Mar, [facility] [address] [place] [id number] [place] [address] 06826- 6263 Mar, [facility] [address] [place] [id number] [place] [place] [address] 45577- 7267 Mar, [facility] [address] [place] [id number] [place] [address] 99633- 0619 Mar, Sleep apnea, obstructive G47.33 ; Obesity E66.9 ; Chronic pain G89.29 ; Hyperlipidemia E78.5 ; HTN (hypertension) I10 ; Blindness and low vision H54.10 ; Major depressive disorder, recurrent, moderate F33.1 and Anxiety F41.9 [facility] [address] [place] [id number] [place] [address] 76199- 0883 Mar, [facility] [id number] [place] [address] 56994- 0097 Mar, Post-traumatic stress disorder, unspecified F43.10 and Major depressive disorder, recurrent, moderate F33.1 [facility] [id number] [place] [address] 27369- 0503 Mar, [facility] [id number] [place] [address] 23950- 6642 Mar, HTN (hypertension) I10 ; Blindness and low vision H54.10 ; Obesity E66.9 ; Hyperlipidemia E78.5 ; Glaucoma H40.9 ; Chronic pain G89.29 and CAD (coronary artery disease) I25.10 [place] [address] [place] [id number] [place] [address] 27085- 1403 Feb, [place] [address] [place] [id number] [place] [address] 53004- 0333 Feb, Post-traumatic stress disorder, unspecified F43.10 ; Obesity E66.9 ; Sleep apnea, obstructive G47.33 and Open-angle glaucoma of both eyes H40.10X0 [address] 249273- 4201 Feb, Post-traumatic stress disorder, unspecified F43.10 and Major depressive disorder, recurrent, moderate F33.1 [place] [id number] [place] [address] 00845- 6312 Feb, [place] [address] [place] [id number] [place] [address] 70045- 3923 Feb, [address] 88844- 9418 Feb, HTN (hypertension) I10 ; Post-traumatic stress disorder, unspecified F43.10 ; Blindness and low vision H54.10 ; Obesity E66.9 ; Hyperlipidemia E78.5 ; Chronic pain G89.29 ; Glaucoma H40.9 ; Mitral valve prolapse I34.1 and Bilateral headaches R51 [place] [address] [place] [id number] [place] [address] 21227- 0865 Feb, [place] [id number] [place] [address] 43099- 1606 Feb, Post-traumatic stress disorder, unspecified F43.10 and Major depressive disorder, recurrent, moderate F33.1 [place] [address] [place] [id number] [place] [address] 23743- 7472 Feb, [place] [address] [place] [id number] [place] [address] 40752- 3032 Feb, [place] [address] [place] [id number] [place] [address] 23020- 2488 Jan, [place] [address] [place] [id number] [place] [address] 05936- 3070 Jan, [place] [address] [place] [id number] [place] [address] 20081- 2880 Jan, Obesity E66.9 ; HTN (hypertension) I10 ; Blindness and low vision H54.10 ; Major depressive disorder, recurrent, moderate F33.1 ; Glaucoma H40.9 ; Hyperlipidemia E78.5 ; Sleep apnea, obstructive G47.33 ; Chronic pain G89.29 ; Anxiety F41.9 ; Chronic tension headaches G44.229 and Cough R05 [place] [address] [place] [id number] [place] [address] 31728- 4558 Jan, [place] [address] 53183- 5353 Jan, [place] [address] [place] [id number] [place] [address] 25926- 3934 Jan, Post-traumatic stress disorder, unspecified F43.10 ; Obesity E66.9 ; Sleep apnea, obstructive G47.33 and Open-angle glaucoma of both eyes H40.10X0 [place] [id number] [place] [address] 77717- 3332 Jan, [place] [address] [place] [id number] [place] [address] 62382- 7395 Jan, Post-traumatic stress disorder, unspecified F43.10 and Major depressive disorder, recurrent, moderate F33.1 [place] [id number] [place] [address] 69529- 9675 Dec, [place] [address] [place] [id number] [place] [address] 48558- 2011 Dec, Sleep apnea, obstructive G47.33 ; Obesity E66.9 ; Hyperlipidemia E78.5 ; Glaucoma H40.9 ; Chronic pain G89.29 ; HTN (hypertension ) I10 ; Blindness and low vision H54.10 ; Anxiety F41.9 and CAD (coronary artery disease) I25.10 [facility] [address] [place] [id number] [place] [address] 01761- 3716 Nov, [facility] [address] 09364- 1489 Nov, [facility] [address] [place] [address] 84429- 6286 Nov, [facility] [address] [place] [address] 35756- 7687 Nov, [address] 68332- 7407 Nov, [address] 32293- 0687 Nov, Encounter for immunization Z23 ; Sleep apnea, obstructive G47.33 ; Obesity E66.9 ; Hyperlipidemia E78.5 ; Glaucoma H40.9 ; Chronic pain G89.29 ; Anxiety F41.9 ; Chronic tension headaches G44.229 and HTN (hypertension ) I10 [facility] [address] [place] [id number] [place] [address] 26958- 0378 Nov, [place] [id number] [place] [address] 26503- 8290 Nov, [facility] [address] [place] [address] 92475- 3753 Nov, Dizziness R42 [address] 03796- 1727 Nov, [facility] [address] [place] [address] 89363- 3804 Oct, [facility] [address] [place] [address] 65596- 4236 Oct, [place] [address] [place] [id number] [place] [address] 23027- 9974 Oct, [place] [address] 22421- 9028 Oct, [place] [address] [place] [id number] [place] [address] 99599- 4044 Oct, Dizziness 780.4 ; Essential hypertension 401.9 ; Obesity 278.00 ; Hyperlipidemia 272.4 ; Chronic pain 338.29 ; Glaucoma 365.9 and Anxiety 300.00 [place] [address] [place] [id number] [place] [address] 98399- 4932 Oct, Essential hypertension 401.9 ; Hyperlipidemia 272.4 ; Glaucoma 365.9 ; Obesity 278.00 ; Chronic pain 338.29 and Allergy to insects V15.06 [place] [address] [place] [id number] [place] [address] 39503- 6485 Sep, [place] [address] 78635- 5068 Sep, [place] [address] [place] [id number] [place] [address] 73283- 1233 Sep, [place] [id number] [place] [place] [address] 98621- 0564 Sep, [place] [address] [place] [id number] [place] [address] 72135- 0322 Aug, Essential hypertension 401.9 ; Obesity 278.00 [...] End Date Duration Status Oxycodone HCl 5 MG Orally 2 times a day 1 tablet 12h 30 Apr, 2017 Active Hydrocodone-Acetaminophen 7.5-325 MG Orally 4 times a day 1 tablet 6h Apr, 28 days Active RESULTS No Results PROCEDURES [...]
--- OUTSIDE RECORDS SUMMARY | 2018-02-04 14:52 | XMS REPORT ---
Author Author DALJIT DAMON Organization [facility] Address [address] [place] [address] Care Team Providers Care Pearl Diver Name Role Phone MARISOL DALJIT Unavailable PROBLEMS Type Condition ICD9-CM Code FRI34-BM Code Onset Dates Condition Status SNOMED Code Problem Primary insomnia F51.01 Active 2894226 Problem Other male erectile dysfunction N52.8 Active 438819379 Problem Morbid (severe) obesity due to excess calories E66.01 Active 113636855 Problem Sarcoidosis D86.9 Active 70621520 Problem Blindness and low vision H54.10 Active 305373811 Problem Problems related to release from skilled nursing Z65.2 Active 593005516268274 Problem Myocarditis, unspecified chronicity, 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 Active 34408296 Problem Chronic pain G89.29 Active 12087233 Problem 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 Active 649156092 Problem Body mass index (BMI) of 40.0-44.9 in adult Z68.41 Active 399805297 Problem Chronic pain syndrome G89.4 Active 101020063 Problem Migraine without aura and without status migrainosus, not intractable G43.009 Active 120241877 Problem Anxiety F41.9 Active 44272843 Problem Major depressive disorder, recurrent, moderate F33.1 Active 43788673 Problem HTN (hypertension) I10 Active 78272711 Problem Chronic tension headaches G44.229 Active 522362946 Problem CAD (coronary artery disease) I25.10 Active 82443906 Problem Post-traumatic stress disorder, chronic F43.12 Active 835166056 Problem Hyperlipidemia E78.5 Active 48986255 Problem Open-angle glaucoma of both eyes H40.10X0 Active 32713341 Problem Environmental allergies Z91.09 Active 988482352 Problem Sleep apnea, obstructive G47.33 Active 17947198 Problem Mitral valve prolapse I34.1 Active 272070758 Problem Arrhythmia as indication for cardiac pacemaker replacement I49.9 Active 28688868 ALLERGIES No Information ENCOUNTERS Encounter Location Date Diagnosis [facility] [address], [place] [address] Oct, [facility] [id number] [address] Oct, [facility] [address], [place] [address] Sep, [facility] [id number] [place] [address] 06583- 3702 Sep, [facility] [address], [place] [address] Sep, [facility] [id number] [place] [address] 58515- 9970 Aug, [facility] [id number], [place] [address] Aug, [facility] [address] [place] [address] 64929- 6267 Aug, Post-traumatic stress disorder, unspecified F43.10 ; Major depressive disorder, recurrent, moderate F33.1 and Problems related to release from skilled nursing Z65.2 [facility] [address], [place] [address] Aug, [facility] [address], [place] [address] Aug, Left leg pain M79.605 [facility] [address], [place] [address] Jul, Post-traumatic stress disorder, chronic F43.12 ; Anxiety F41.9 ; Problems related to release from skilled nursing Z65.2 and BMI 40.0-44.9, adult Z68.41 [facility] [address], [place] [address] Jul, 2018 HTN (hypertension) I10 ; Body mass index (BMI) of 40.0-44.9 in adult Z68.41 and Acute swimmer''s ear of both sides H60.333 [facility] [id number] [place] [address] 59636- 7802 19 Jul, 2017 Glaucoma H40.9 [facility] [id number] [place] [address] 22362- 6618 14 Jul, 2017 [facility] [id number] [place] [address] 29510- 1435 13 Jul, 2017 Sarcoidosis D86.9 [facility] [id number] [place] [address] 56580- 1287 12 Jul, 2017 Left leg pain M79.605 [facility] [address] [address]- 7946 Jul, Sarcoidosis D86.9 [facility] [id number] [place] [address] 87455- 9123 Jul, Post-traumatic stress disorder, unspecified F43.10 ; Major depressive disorder, recurrent, moderate F33.1 and Problems related to release from skilled nursing Z65.2 [facility] [id number] [place] [address] 08165- 1862 June, [facility] [id number] [place] [address] 62062 -8580 June, Sore throat J02.9 and BMI 40.0-44.9, adult Z68.41 [facility] [id number] [place] [address] 99898- 8756 June, [facility] [id number] [place] [address] 79960- 1818 June, [facility] [id number] [place] [address] 08064- 1197 June, [facility] [id number] [place] [address] 85229- 2438 June, Left leg pain M79.605 [facility] [address] [place] [address]- 3233 June, Sarcoidosis D86.9 [facility] [id number] [place] [address] 60364- 8492 June, [facility] [id number] [place] [address] 62511- 3508 June, [facility] [id number] [place] [address] 27603- 1333 June, Left leg pain M79.605 [facility] [id number] [place] [address] 52142- 8371 May, [facility] [id number] [place] [address] 15211- 4931 May, [facility] [id number] [place] [address] 87607- 4045 May, [facility] [id number] [place] [address] 09451- 4481 May, Left leg pain M79.605 [facility] [address] [place] [address] 33884- 9765 May, Post-traumatic stress disorder, unspecified F43.10 ; Major depressive disorder, recurrent, moderate F33.1 and Problems related to release from skilled nursing Z65.2 [facility] [address] [place] [address] 76124- 3639 May, Chronic pain G89.29 ; Anxiety F41.9 ; Chest pain, unspecified type R07.9 and BMI 40.0-44.9, adult Z68.41 [facility] [id number] [place] [address] 32741- 2318 Apr, [facility] [id number] [place] [address] 49169- 4938 Apr, Left leg pain M79.605 [facility] [id number] [place] [address] 86181- 1505 Apr, Post-traumatic stress disorder, unspecified F43.10 ; Problems related to release from skilled nursing Z65.2 ; Anxiety F41.9 and BMI 40.0-44.9 , adult Z68.41 [place] [id number] [place] [address] 95319- 6949 Apr, [place] [address] 77049- 3095 Apr, Left leg pain M79.[address] [address]47- 9415 13 Apr, 2017 Post-traumatic stress disorder, unspecified F43.10 ; Major depressive disorder, recurrent, moderate F33.1 and Problems related to release from skilled nursing Z65.2 [place] [address] 22902- 5935 12 Apr, [address] 79350- 5534 12 Apr, 2017 Chronic pain G89.29 ; 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 ; Morbid (severe) obesity due to excess calories E66.01 ; Anxiety F41.9 and BMI 40.0-44.9, adult Z68.41 [facility] [place] [id number] [place] [address] 94035 -1644 10 Apr, 2017 Sore throat J02.9 and BMI 40.0-44.9, adult Z68.[address] 93993- 4717 02 Apr, 2017 Left leg pain M79.605 [facility] [address] [id number] Mar, Dental examination Z01.20 [place] [address] 02139- 9173 Mar, [facility] [address] [address] -[address] Mar, Cough R05 ; Viral gastroenteritis A08.4 and BMI 40.0-44.9, adult Z68.41 [place] [id number] [place] [address] 99038- 3240 Mar, Left leg pain M79.605 [place] [id number] [place] [address] 26307- 0016 Mar, Post-traumatic stress disorder, unspecified F43.10 ; Major depressive disorder, recurrent, moderate F33.1 and Problems related to release from skilled nursing Z65.2 [place] [address] 32655- 2367 Feb, Left leg pain M79.605 [place] [address] 02014- 8314 Feb, [place] [address] 26992- 7989 Feb, BMI 40.0-44.9, adult Z68.41 ; Chronic pain syndrome G89.4 ; Migraine without aura and without status migrainosus, not intractable G43.009 ; Mitral valve prolapse I34.1 and 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 [place] [id number] [place] [address] 96458- 5846 Feb, Post-traumatic stress disorder, chronic F43.12 ; Anxiety F41.9 ; Problems related to release from skilled nursing Z65.2 and BMI 40.0-44.9, adult Z68.41 [place] [id number] [place] [address] 29094- 6277 Feb, Post-traumatic stress disorder, unspecified F43.10 ; Major depressive disorder, recurrent, moderate F33.1 and Problems related to release from skilled nursing Z65.2 [place] [id number] [place] [address] 99329- 0225 Feb, Left leg pain M79.605 [place] [address] 07217- 4021 Jan, Post-traumatic stress disorder, unspecified F43.10 ; Major depressive disorder, recurrent, moderate F33.1 and Problems related to release from skilled nursing Z65.2 [facility] [id number] [place] [address] 47974- 6707 Jan, [facility] [id number] [place] [address] 15626- 0388 Jan, [facility] [id number] [place] [address] 10273- 1946 Jan, Anxiety F41.9 [place] [id number] [place] [address] 72287- 9780 Jan, Left leg pain M79.605 [place] [id number] [place] [address] 13394- 7785 Dec, Left leg pain M79.605 [facility] [id number] [place] [address] 36228- 2806 Dec, [facility] [id number] [place] [address] 54162- 8523 Dec, Post-traumatic stress disorder, unspecified F43.10 ; Major depressive disorder, recurrent, moderate F33.1 and Problems related to release from skilled nursing Z65.2 [place] [address] [place] [address] 88292- 4781 Nov, Chronic pain G89.29 and Anxiety F41.9 [facility] [id number] [place] [address] 92732- 3205 24 Nov, 2016 Chronic pain G89.29 and Anxiety F41.9 [facility] [id number] [place] [address] 05679- 7989 16 Nov, 2016 Post-traumatic stress disorder, unspecified F43.10 ; Major depressive disorder, recurrent, moderate F33.1 and Problems related to release from skilled nursing Z65.2 [place] [id number] [place] [address] 92382- 3889 09 Nov, 2016 Other abnormal findings in specimens from other organs, systems and tissues R89.8 ; Other male erectile dysfunction N52.8 ; Body mass index (BMI) of 40.0-44.9 in adult Z68.41 and Morbid (severe) obesity due to excess calories E66.01 [place] [address] [place] [address] 64707- 2906 02 Nov, 2016 Post-traumatic stress disorder, unspecified F43.10 ; Major depressive disorder, recurrent, moderate F33.1 and Problems related to release from skilled nursing Z65.2 [facility] [id number] [place] [address] [id number] Oct, Dental examination Z01.20 [place] [id number] [place] [address] 95059- 3033 Oct, [place] [address] 05528- 1499 Oct, Encounter for immunization Z23 [place] [id number] [place] [address] 36310- 4143 Oct, Chronic pain G89.29 ; Anxiety F41.9 ; Arrhythmia as indication for cardiac pacemaker replacement I49.9 and Glaucoma H40.9 [place] [id number] [place] [address] 85220- 6710 Oct, Anxiety F41.9 ; Post-traumatic stress disorder, chronic F43.12 and Problems related to release from skilled nursing Z65.2 [place] [id number] [place] [address] 61087- 0025 Oct, Post-traumatic stress disorder, unspecified F43.10 ; Major depressive disorder, recurrent, moderate F33.1 and Problems related to release from skilled nursing Z65.2 [place] [id number] [place] [address] 50270- 6227 Sep, Chronic pain G89.29 and Anxiety F41.9 [place] [id number] [place] [address] 29889- 8451 Sep, Post-traumatic stress disorder, unspecified F43.10 ; Major depressive disorder, recurrent, moderate F33.1 and Problems related to release from skilled nursing Z65.2 [place] [address] [place] [address] 51123- 4522 Sep, Post-traumatic stress disorder, unspecified F43.10 ; Major depressive disorder, recurrent, moderate F33.1 and Problems related to release from skilled nursing Z65.2 [place] [id number] [place] [address] 63766- 8420 Sep, Chronic pain G89.29 [place] [id number] [place] [address] 24596- 8756 Aug, Dental caries, unspecified K02.9 [place] [id number] [place] [address] 96373- 1331 Aug, Sleep apnea, obstructive G47.33 ; Obesity E66.9 ; Chronic pain G89.29 ; HTN (hypertension) I10 ; Major depressive disorder, recurrent, moderate F33.1 ; Anxiety F41.9 ; Chronic tension headaches G44.229 ; Mitral valve prolapse I34.1 ; Arrhythmia as indication for cardiac pacemaker replacement I49.9 ; Dental caries, unspecified K02.9 ; Primary insomnia F51.01 and Hyperlipidemia E78.5 [place] [address], [place] [address]- 9340 Aug, Post-traumatic stress disorder, unspecified F43.10 ; Major depressive disorder, recurrent, moderate F33.1 and Problems related to release from skilled nursing Z65.2 [facility] [address], [place] [address]- 1948 Aug, Dental examination Z01.20 [facility] [address] [place] [address] [id number] Aug, Dental examination Z01.20 [facility] [address] [place] [address] 67236- 4695 Aug, Post-traumatic stress disorder, unspecified F43.10 ; Major depressive disorder, recurrent, moderate F33.1 and Problems related to release from skilled nursing Z65.2 [place] [id number] [place] [address] 59985- 4479 Aug, Chronic pain G89.29 and Primary insomnia F51.01 [place] [id number] [place] [address] 02650- 1311 Jul, [place] [address] 48788- 3168 Jul, [place] [address] 87496- 5780 Jul, Nausea R11.0 [place] [address] 59782- 2284 Jul, Arrhythmia as indication for cardiac pacemaker replacement I49.[address] 11566- 5345 Jul, Post-traumatic stress disorder, unspecified F43.10 ; Major depressive disorder, recurrent, moderate F33.1 and Problems related to release from skilled nursing Z65.2 [place] [address] 44709- 8680 09 Jul, 2016 Anxiety F41.9 [place] [id number] [place] [address] 79912- 0366 08 Jul, 2016 Chronic pain G89.29 [place] [id number] [place] [address] 44096- 0202 02 Jul, 2016 Sleep apnea, obstructive G47.33 ; Hyperlipidemia E78.5 ; Chronic pain G89.29 ; Blindness and low vision H54.10 ; Major depressive disorder, recurrent, moderate F33.1 ; Anxiety F41.9 ; Mitral valve prolapse I34.1 ; Arrhythmia as indication for cardiac pacemaker replacement I49.9 ; Primary insomnia F51.01 ; Bilateral headaches R51 and Environmental allergies Z91.[address] 91006- 0014 Jul, Post-traumatic stress disorder, unspecified F43.10 ; Major depressive disorder, recurrent, moderate F33.1 and Problems related to release from skilled nursing Z65.2 [place] [address] [place] [address] 86387- 2775 June, Post-traumatic stress disorder, chronic F43.12 ; Anxiety F41.9 ; Problems related to release from skilled nursing Z65.2 ; Sleep apnea, obstructive G47.33 and Primary insomnia F51.01 [place] [id number] [address]- 4348 June, [place] [id number] [place] [address] 16063- 7153 June, [place] [id number] [place] [address] 00231- 8634 June, [place] [id number] [place] [address] 36233- 4446 June, Chronic pain G89.29 [place] [id number] [place] [address] 63519- 0355 June, Chronic pain G89.29 [place] [id number] [place] [address] 31919- 5190 June, Lipoma of left lower extremity D17.24 ; Open wound T14.8 and Swelling of left lower extremity M79.89 [place] [id number] [place] [address] 51985- 7537 June, Post-traumatic stress disorder, unspecified F43.10 ; Major depressive disorder, recurrent, moderate F33.1 and Problems related to release from skilled nursing Z65.2 [place] [address] [place] [address] 31987- 4770 May, Lipoma of left lower extremity D17.24 ; Major depressive disorder, recurrent, moderate F33.1 ; Sleep apnea, obstructive G47.33 ; Hyperlipidemia E78.5 ; Obesity E66.9 ; HTN (hypertension) I10 ; Glaucoma H40.9 ; CAD (coronary artery disease) I25.10 ; Chronic tension headaches G44.229 ; Chronic pain G89.29 ; Anxiety F41.9 ; Nausea R11.0 and Primary insomnia F51.01 [address] [place] [address] 48499- 6147 May, [place] [id number] [place] [address] 12863- 7226 May, Chronic pain G89.29 [place] [id number] [place] [address] 63632- 0676 May, [place] [id number] [place] [address] 02934- 7717 31 Apr, 2016 Post-traumatic stress disorder, unspecified F43.10 ; Major depressive disorder, recurrent, moderate F33.1 and Problems related to release from skilled nursing Z65.2 [place] [id number] [place] [address] 00132- 4320 Apr, Primary insomnia F51.01 ; Post-traumatic stress disorder, chronic F43.12 and Problems related to release from skilled nursing Z65.2 [place] [id number] [place] [address] 28027- 3461 17 Apr, 2016 Post-traumatic stress disorder, unspecified F43.10 ; Major depressive disorder, recurrent, moderate F33.1 and Problems related to release from skilled nursing Z65.2 [place] [id number] [place] [address] 73192- 0002 Apr, [place] [id number] [place] [address] 32693- 8799 Apr, Sleep apnea, obstructive G47.33 ; Chronic pain G89.29 ; HTN (hypertension) I10 ; Mitral valve prolapse I34.1 ; Shoulder pain, left M25.512 ; Arrhythmia as indication for cardiac pacemaker replacement I49.9 ; Glaucoma H40.9 ; Bilateral headaches R51 ; Environmental allergies Z91.09 ; Primary insomnia F51.01 and Nausea R11.0 [place] [address] [address]- 9200 Apr, [place] [id number] [place] [address] 78311- 0254 Apr, [place] [id number] [place] [address] 80608- 3148 Apr, Post-traumatic stress disorder, unspecified F43.10 ; Major depressive disorder, recurrent, moderate F33.1 and Problems related to release from skilled nursing Z65.2 [place] [id number] [place] [address] 48122- 0249 Apr, HTN (hypertension) I10 [place] [id number] [place] [address] 56980- 3924 Apr, HTN (hypertension) I10 [place] [id number] [place] [address] 73944- 4877 14 Mar, 2016 Chronic pain G89.29 ; Primary insomnia F51.01 and Problems related to release from skilled nursing Z65.2 [place] [address] [place] [address] 45946- 4845 07 Mar, 2016 Post-traumatic stress disorder, unspecified F43.10 ; Major depressive disorder, recurrent, moderate F33.1 and Problems related to release from skilled nursing Z65.2 [place] [address] [place] [address] 21256- 3278 Feb, Post-traumatic stress disorder, unspecified F43.10 ; Major depressive disorder, recurrent, moderate F33.1 and Problems related to release from skilled nursing Z65.2 [place] [address] [place] [address] 03307- 3282 Feb, Chronic tension headaches G44.229 [place] [id number] [place] [address] 73987- 7455 Feb, Sleep apnea, obstructive G47.33 ; Obesity [...] insomnia F51.01 [facility] [id number] [place] [address] 04745- 3407 17 Feb, 2016 Post-traumatic stress disorder, unspecified F43.10 and Chronic pain G89.29 [place] [address] 91170- 5248 Feb, [facility] [address] [id number] Feb, Dental caries K02.9 [place] [address] 64054- 5911 Feb, [address] 49391- 0335 Feb, Post-traumatic stress disorder, unspecified F43.10 ; Major depressive disorder, recurrent, moderate F33.1 and Problems related to release from skilled nursing Z65.2 [place] [id number] [place] [address] 51558- 1476 Jan, Sleep apnea, obstructive G47.33 and Chronic pain G89.29 [place] [id number] [place] [address] 99460- 3452 Jan, [place] [address] 68451- 4705 Jan, Dental examination Z01.20 [place] [address] 09246- 9273 Jan, [facility] [address] 43515- 7230 Jan, [place] [address] 31640- 0275 Dec, Post-traumatic stress disorder, unspecified F43.10 ; Major depressive disorder, recurrent, moderate F33.1 and Problems related to release from skilled nursing Z65.2 [place] [id number] [place] [address] 67005- 7877 Dec, Encounter for immunization Z23 ; Problems related to release from skilled nursing Z65.2 ; Sleep apnea, obstructive G47.33 and Post-traumatic stress disorder, chronic F43.12 [place] [address] 54108- 9664 Dec, Sleep apnea, obstructive G47.33 ; Hyperlipidemia E78.5 ; Chronic pain G89.29 ; Glaucoma H40.9 ; HTN (hypertension) I10 ; Post-traumatic stress disorder, unspecified F43.10 ; Anxiety F41.9 ; Chronic tension headaches G44.229 ; Mitral valve prolapse I34.1 and CAD (coronary artery disease) I25.10 [place] [address] 92548- 5248 Dec, Post-traumatic stress disorder, unspecified F43.10 ; Major depressive disorder, recurrent, moderate F33.1 and Problems related to release from skilled nursing Z65.2 [place] [id number] [place] [id number] Nov, Chronic pain G89.29 [place] [address] [place] [id number] [place] [address] Nov, Post-traumatic stress disorder, unspecified F43.10 ; Major depressive disorder, recurrent, moderate F33.1 and Problems related to release from skilled nursing Z65.2 [place] [address] [place] [id number] [place] [id number] Oct, [place] [address] [place] [id number] [place] [id number] Oct, [place] [address] [place] [id number] [place] [id number] Oct, Post-traumatic stress disorder, unspecified F43.10 ; Major depressive disorder, recurrent, moderate F33.1 and Problems related to release from skilled nursing Z65.2 [facility] [id number] [place] [address] 20512- 8359 08 Oct, 2015 [facility] [id number] [place] [address] 82931- 7552 07 Oct, 2015 Environmental allergies Z91.09 ; Cough R05 and Open-angle glaucoma of both eyes H40.10X0 [facility] [id number] [place] [address] 15848- 5694 Sep, [facility] [id number] [place] [address] 08043- 3996 Sep, Post-traumatic stress disorder, unspecified F43.10 ; Major depressive disorder, recurrent, moderate F33.1 and Problems related to release from skilled nursing Z65.2 [facility] [id number] [place] [address] 47509- 7511 Sep, Chronic pain G89.29 [facility] [id number] [place] [address] 79136- 7278 Sep, Pain in left shoulder M25.512 ; Pain in right shoulder M25.511 and Other chronic pain G89.29 [facility] [id number] [place] [address] 59102- 1582 Sep, [facility] [id number] [place] [address] 61312- 7424 Sep, [facility] [id number] [place] [address] 08766- 5419 Sep, [facility] [id number] [place] [address] [id number] Aug, Dental examination Z01.20 [facility] [id number] [place] [address] 61257- 8687 Aug, Post-traumatic stress disorder, unspecified F43.10 ; Open- angle glaucoma of both eyes H40.10X0 and Problems related to release from skilled nursing Z65.2 [facility] [address] [address] Aug, [facility] [id number] [place] [address] 67157- 0806 Aug, Sleep apnea, obstructive G47.33 ; Obesity E66.9 ; Hyperlipidemia E78.5 ; Bilateral headaches R51 ; HTN (hypertension) I10 ; Post- traumatic stress disorder, unspecified F43.10 ; Anxiety F41.9 ; Neuropathy G62.9 ; Glaucoma H40.9 and Chronic pain G89.29 [facility] [address] [id number] Aug, Encounter for dental examination Z01.20 [facility] [id number] [place] [address] 94231- 7903 Aug, Post-traumatic stress disorder, unspecified F43.10 ; Major depressive disorder, recurrent, moderate F33.1 and Problems related to release from skilled nursing Z65.2 [facility] [address] [address] 7024 Aug, [facility] [id number] [place] [address] 53402- 1191 Jul, [facility] [address], [place] [address] 8629 Jul, Post-traumatic stress disorder, unspecified F43.10 and Major depressive disorder, recurrent, moderate F33.1 [facility] [address] [address] 8187 Jul, [facility] [address] [address] 6359 Jul, [facility] [address], [place] [address] 7810 Jul, Chronic pain G89.29 [facility] [address] [address] 5427 June, Post-traumatic stress disorder, unspecified F43.10 and Major depressive disorder, recurrent, moderate F33.1 [facility] [id number] [place] [address] 53191- 2264 June, [facility] [id number] [place] [address] 84470- 2100 June, Chronic pain G89.29 [facility] [id number] [place] [address] 50024- 9629 June, Post-traumatic stress disorder, unspecified F43.10 and Major depressive disorder, recurrent, moderate F33.1 [facility] [id number] [place] [address] 31411- 9196 May, Post-traumatic stress disorder, unspecified F43.10 and Major depressive disorder, recurrent, moderate F33.1 [facility] [id number] [place] [address] 83103- 3766 May, [facility] [id number] [place] [address] 93783- 3216 May, [facility] [id number] [place] [address] 81151- 7653 May, [facility] [id number] [place] [address] 00342- 6451 Apr, [facility] [id number] [place] [address] 47628- 8365 Apr, Post-traumatic stress disorder, unspecified F43.10 and Sleep apnea, obstructive G47.33 [facility] [id number] [place] [address] 08052- 6620 Apr, [facility] [id number] [place] [address] 26982- 6320 Apr, Shoulder pain, left M25.512 [facility] [id number] [place] [address] 02026- 1072 Apr, Post-traumatic stress disorder, unspecified F43.10 and Major depressive disorder, recurrent, moderate F33.1 [facility] [address], [place] [address] 8973 Apr, [facility] [id number] [place] [address] 43687- 5991 Apr, [facility] [id number] [place] [address] 25185- 6725 Apr, [facility] [id number] [place] [address] 61656- 0461 Apr, Left shoulder pain M25.512 [facility] [id number] [place] [address] 81651- 6335 Mar, [facility] [id number] [place] [address] 11233- 7551 Mar, [facility] [id number] [place] [address] 70226- 5685 Mar, [facility] [id number] [place] [address] 93646- 1368 Mar, Sleep apnea, obstructive G47.33 ; Obesity E66.9 ; Chronic pain G89.29 ; Hyperlipidemia E78.5 ; HTN (hypertension) I10 ; Blindness and low vision H54.10 ; Major depressive disorder, recurrent, moderate F33.1 and Anxiety F41.9 [facility] [id number] [place] [address] 70774- 8631 Mar, [facility] [id number] [place] [address] 89115- 1444 Mar, Post-traumatic stress disorder, unspecified F43.10 and Major depressive disorder, recurrent, moderate F33.1 [facility] [id number] [place] [address] 14013- 8838 Mar, [facility] [id number] [place] [address] 89955- 6332 Mar, HTN (hypertension) I10 ; Blindness and low vision H54.10 ; Obesity E66.9 ; Hyperlipidemia E78.5 ; Glaucoma H40.9 ; Chronic pain G89.29 and CAD (coronary artery disease) I25.10 [facility] [id number] [place] [address] 74945- 9499 Feb, [facility] [id number] [place] [address] 01324- 0166 Feb, Post-traumatic stress disorder, unspecified F43.10 ; Obesity E66.9 ; Sleep apnea, obstructive G47.33 and Open-angle glaucoma of both eyes H40.10X0 [address] 083844- 6142 Feb, Post-traumatic stress disorder, unspecified F43.10 and Major depressive disorder, recurrent, moderate F33.1 [id number] [place] [address] 61576- 5435 Feb, [facility] [id number] [place] [address] 12339- 4019 Feb, [address] 01610- 5139 Feb, HTN (hypertension) I10 ; Post-traumatic stress disorder, unspecified F43.10 ; Blindness and low vision H54.10 ; Obesity E66.9 ; Hyperlipidemia E78.5 ; Chronic pain G89.29 ; Glaucoma H40.9 ; Mitral valve prolapse I34.1 and Bilateral headaches R51 [facility] [id number] [place] [address] 59592- 1857 Feb, [address] [id number] [place] [address] 16211- 8963 Feb, Post-traumatic stress disorder, unspecified F43.10 and Major depressive disorder, recurrent, moderate F33.1 [facility] [id number] [place] [address] 59217- 5739 Feb, [facility] [id number] [place] [address] 36164- 3276 Feb, [facility] [id number] [place] [address] 38346- 5784 Jan, [facility] [id number] [place] [address] 15737- 9194 Jan, [facility] [id number] [place] [address] 34292- 2193 Jan, Obesity E66.9 ; HTN (hypertension) I10 ; Blindness and low vision H54.10 ; Major depressive disorder, recurrent, moderate F33.1 ; Glaucoma H40.9 ; Hyperlipidemia E78.5 ; Sleep apnea, obstructive G47.33 ; Chronic pain G89.29 ; Anxiety F41.9 ; Chronic tension headaches G44.229 and Cough R05 [facility] [id number] [place] [address] 80699- 1412 Jan, [facility] [address] 46493- 4713 Jan, [facility] [id number] [place] [address] 63442- 5065 Jan, Post-traumatic stress disorder, unspecified F43.10 ; Obesity E66.9 ; Sleep apnea, obstructive G47.33 and Open-angle glaucoma of both eyes H40.10X0 [id number] [place] [address] 90502- 2824 Jan, [facility] [id number] [place] [address] 20713- 6315 Jan, Post-traumatic stress disorder, unspecified F43.10 and Major depressive disorder, recurrent, moderate F33.1 [id number] [place] [address] 82291- 6519 Dec, [facility] [id number] [place] [address] 28159- 7670 Dec, Sleep apnea, obstructive G47.33 ; Obesity E66.9 ; Hyperlipidemia E78.5 ; Glaucoma H40.9 ; Chronic pain G89.29 ; HTN (hypertension ) I10 ; Blindness and low vision H54.10 ; Anxiety F41.9 and CAD (coronary artery disease) I25.10 [facility] [id number] [place] [address] 09875- 8065 Nov, [facility] [address] 37279- 8520 Nov, [facility] [address] [place] [address] 31206- 8007 Nov, [facility] [address] [place] [address] 30066- 8809 Nov, [address] 26997- 0349 Nov, [address] 25762- 0617 Nov, Encounter for immunization Z23 ; Sleep apnea, obstructive G47.33 ; Obesity E66.9 ; Hyperlipidemia E78.5 ; Glaucoma H40.9 ; Chronic pain G89.29 ; Anxiety F41.9 ; Chronic tension headaches G44.229 and HTN (hypertension ) I10 [facility] [address] [place] [id number] [place] [address] 43788- 6786 Nov, [address] [place] [id number] [place] [address] 57655- 2247 Nov, [facility] [address] [place] [address] 12254- 7739 Nov, Dizziness R42 [address] 15208- 7962 Nov, [facility] [address] [place] [address] 11596- 7028 Oct, [facility] [address] [place] [address] 77031- 8860 Oct, [facility] [id number] [place] [address] 57357- 8357 Oct, [facility] [id number] [place] [address] 61772- 5991 Oct, [facility] [id number] [place] [address] 24041- 7420 Oct, Dizziness 780.4 ; Essential hypertension 401.9 ; Obesity 278.00 ; Hyperlipidemia 272.4 ; Chronic pain 338.29 ; Glaucoma 365.9 and Anxiety 300.00 [facility] [id number] [place] [address] 75310- 0802 Oct, Essential hypertension 401.9 ; Hyperlipidemia 272.4 ; Glaucoma 365.9 ; Obesity 278.00 ; Chronic pain 338.29 and Allergy to insects V15.06 [address] [place] [id number] [place] [address] 26063- 1545 Sep, [facility] [address] 63663- 3688 Sep, [facility] [id number] [place] [address] 05899- 4911 Sep, [place] [id number] [place] [address] 85898- 2056 Sep, [place] [id number] [place] [address] 90017- 4576 Aug, Essential hypertension 401.9 ; Obesity 278.00 [...] Twice a day for anxiety 1 tablet 28 days Active RESULTS No Results PROCEDURES [...]
--- OUTSIDE RECORDS SUMMARY | 2018-02-04 14:53 | XMS REPORT ---
Author Author ALENA ÁLVAREZ Organization [facility] Address [address] [place] [address] Care Team Providers Care Frit Burner Name Role Phone ALENA ÁLVAREZ Unavailable PROBLEMS Type Condition ICD9-CM Code DNJ52-OD Code Onset Dates Condition Status SNOMED Code Problem Primary insomnia F51.01 Active 9066931 Problem Other male erectile dysfunction N52.8 Active 128560973 Problem Morbid (severe) obesity due to excess calories E66.01 Active 869518021 Problem Sarcoidosis D86.9 Active 62970837 Problem Blindness and low vision H54.10 Active 375415256 Problem Problems related to release from chcf Z65.2 Active [id number] Problem Myocarditis, unspecified chronicity, 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 Active 71446417 Problem Chronic pain G89.29 Active 38190475 Problem 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 Active 357107053 Problem Body mass index (BMI) of 40.0-44.9 in adult Z68.41 Active 890462182 Problem Chronic pain syndrome G89.4 Active 854849760 Problem Migraine without aura and without status migrainosus, not intractable G43.009 Active 117821430 Problem Anxiety F41.9 Active 81949827 Problem Major depressive disorder, recurrent, moderate F33.1 Active 99247579 Problem HTN (hypertension) I10 Active 18839039 Problem Chronic tension headaches G44.229 Active 623744595 Problem CAD (coronary artery disease) I25.10 Active 77686897 Problem Post-traumatic stress disorder, chronic F43.12 Active 204319141 Problem Hyperlipidemia E78.5 Active 29459390 Problem Open-angle glaucoma of both eyes H40.10X0 Active 45551694 Problem Environmental allergies Z91.09 Active 651288099 Problem Sleep apnea, obstructive G47.33 Active 70714065 Problem Mitral valve prolapse I34.1 Active 967134813 Problem Arrhythmia as indication for cardiac pacemaker replacement I49.9 Active 34879009 ALLERGIES No Information ENCOUNTERS Encounter Location Date Diagnosis [facility] [id number] [address] Oct, [facility] [address] [address] Oct, [facility] [address] [address] Sep, [facility] [id number] [place] [address] 43230- 5798 Sep, [facility] [address] [address] Sep, [facility] [id number] [place] [address] 45534- 2580 Aug, [facility] [id number] [address] Aug, Sarcoidosis D86.9 [facility] [address] [address] Aug, Sarcoidosis D86.9 [facility] [id number] [place] [address] 27460- 5539 Aug, HTN (hypertension) I10 [facility] [address] [address] Aug, Post-traumatic stress disorder, unspecified F43.10 ; Major depressive disorder, recurrent, moderate F33.1 and Problems related to release from chcf Z65.2 [facility] [address] [address] Aug, [facility] [address] [address] Aug, Left leg pain M79.605 [facility] [id number] [address] Jul, Post-traumatic stress disorder, chronic F43.12 ; Anxiety F41.9 ; Problems related to release from chcf Z65.2 and BMI 40.0-44.9, adult Z68.41 [facility] [id number] [place] [address] 29949- 3566 20 Jul, 2017 HTN (hypertension) I10 ; Body mass index (BMI) of 40.0-44.9 in adult Z68.41 and Acute swimmer''s ear of both sides H60.333 [place] [facility] [address] 40311- 7541 19 Jul, 2017 Glaucoma H40.9 [place] [address] 17784- 5803 Jul, [place] [address] 66206- 0588 Jul, Sarcoidosis D86.9 [facility] [facility] [address] 42637- 0638 Jul, Left leg pain M79.605 [facility] [id number] [place] [address] 47466- 5136 12 Jul, 2017 Sarcoidosis D86.9 [facility] [address] 98118- 9132 Jul, Post-traumatic stress disorder, unspecified F43.10 ; Major depressive disorder, recurrent, moderate F33.1 and Problems related to release from chcf Z65.2 [facility] [id number] [place] [address] 13522- 9093 June, [facility] [id number] [place] [address] 66498 -0865 June, Sore throat J02.9 and BMI 40.0-44.9, adult Z68.41 [facility] [id number] [place] [address] 70220- 7723 June, [facility] [facility] [address] 75776- 2236 June, [facility] [address] [address] 16[address] June, [facility] [id number] [place] [address] 08208- 8721 June, Left leg pain M79.605 [facility] [id number] [place] [address] 04315- 0781 June, Sarcoidosis D86.9 [facility] [id number] [place] [address] 21098- 5456 June, [facility] [id number] [place] [address] 49310- 3268 June, [facility] [id number] [place] [address] 73708- 6121 June, Left leg pain M79.605 [facility] [id number] [place] [address] 81305- 7346 May, [facility] [id number] [place] [address] 21460- 8468 May, [facility] [id number] [place] [address] 96045- 8284 May, [facility] [address] [place] [address] 91926- 5307 May, Left leg pain M79.605 [facility] [id number] [place] [address] 04200- 1187 May, Post-traumatic stress disorder, unspecified F43.10 ; Major depressive disorder, recurrent, moderate F33.1 and Problems related to release from chcf Z65.2 [facility] [address] [place] [address] 41030- 6816 May, Chronic pain G89.29 ; Anxiety F41.9 ; Chest pain, unspecified type R07.9 and BMI 40.0-44.9, adult Z68.41 [facility] [id number] [place] [address] 62373- 6367 30 Apr, 2017 [facility] [id number] [place] [address] 69372- 9992 Apr, Left leg pain M79.605 [facility] [id number] [place] [address] 70044- 9169 27 Apr, 2017 Post-traumatic stress disorder, unspecified F43.10 ; Problems related to release from chcf Z65.2 ; Anxiety F41.9 and BMI 40.0-44.9 , adult Z68.41 [facility] [id number] [place] [address] 19382- 1265 Apr, [facility] [id number] [place] [address] 87086- 5932 Apr, Left leg pain M79.605 [facility] [id number] [place] [address] 97652- 2610 13 Apr, 2017 Post-traumatic stress disorder, unspecified F43.10 ; Major depressive disorder, recurrent, moderate F33.1 and Problems related to release from chcf Z65.2 [facility] [id number] [place] [address] 30162- 1967 Apr, [facility] [id number] [place] [address] 35416- 6283 Apr, Chronic pain G89.29 ; 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 ; Morbid (severe) obesity due to excess calories E66.01 ; Anxiety F41.9 and BMI 40.0-44.9, adult Z68.41 [facility] [id number] [place] [address] 67513 -8665 Apr, Sore throat J02.9 and BMI 40.0-44.9, adult Z68.41 [facility] [id number] [place] [address] 69345- 4055 02 Apr, 2017 Left leg pain M79.605 [facility] [id number] [place] [address] [id number] Mar, Dental examination Z01.20 [facility] [id number] [place] [address] 82542- 9007 Mar, [facility] [id number] [place] [address] 90619 -1622 20 Mar, 2017 Cough R05 ; Viral gastroenteritis A08.4 and BMI 40.0-44.9, adult Z68.41 [place] [address] 04918- 3308 Mar, Left leg pain M79.605 [place] [address] 65805- 6553 Mar, Post-traumatic stress disorder, unspecified F43.10 ; Major depressive disorder, recurrent, moderate F33.1 and Problems related to release from chcf Z65.2 [place] [address] 99417- 5650 Feb, Left leg pain M79.605 [facility] [address] 48500- 0405 Feb, [place] [address] 04935- 7232 Feb, BMI 40.0-44.9, adult Z68.41 ; Chronic pain syndrome G89.4 ; Migraine without aura and without status migrainosus, not intractable G43.009 ; Mitral valve prolapse I34.1 and 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605 [facility] [id number] [place] [address] 27 Jan, 2017 Post-traumatic stress disorder, unspecified F43.10 ; Major depressive disorder, recurrent, moderate F33.1 and Problems related to release from chcf Z65.2 [facility] [id number] [place] [address] 89158- 6596 Jan, [facility] [id number] [place] [address] 652427- 5876 Jan, [facility] [id number] [place] [address] 14662- 2936 Jan, Anxiety F41.9 [facility] [id number] [place] [address] 87767- 2278 Jan, Left leg pain M79.605 [facility] [id number] [place] [address] 78577- 4476 Dec, Left leg pain M79.605 [facility] [id number] [place] [address] 33806- 5576 Dec, [facility] [id number] [place] [address] 32575- 6389 Dec, Post-traumatic stress disorder, unspecified F43.10 ; Major depressive disorder, recurrent, moderate F33.1 and Problems related to release from chcf Z65.2 [facility] [id number] [place] [address] 44877- 5407 Nov, Chronic pain G89.29 and Anxiety F41.9 [facility] [id number] [place] [address] 57993- 1886 24 Nov, 2016 Chronic pain G89.29 and Anxiety F41.9 [facility] [id number] [place] [address] 24756- 2357 16 Nov, 2016 Post-traumatic stress disorder, unspecified F43.10 ; Major depressive disorder, recurrent, moderate F33.1 and Problems related to release from chcf Z65.2 [facility] [id number] [place] [address] 11411- 8956 09 Nov, 2016 Other abnormal findings in specimens from other organs, systems and tissues R89.8 ; Other male erectile dysfunction N52.8 ; Body mass index (BMI) of 40.0-44.9 in adult Z68.41 and Morbid (severe) obesity due to excess calories E66.01 [place] [facility] [address] 04686- 1029 02 Nov, 2016 Post-traumatic stress disorder, unspecified F43.10 ; Major depressive disorder, recurrent, moderate F33.1 and Problems related to release from chcf Z65.2 [facility] [address] [id number] 29 Oct, 2016 Dental examination Z01.20 [facility] [address] 99067- 7341 Oct, [place] [address] 18263- 0200 Oct, Encounter for immunization Z23 [facility] [address] 34753- 5430 Oct, Chronic pain G89.29 ; Anxiety F41.9 ; Arrhythmia as indication for cardiac pacemaker replacement I49.9 and Glaucoma H40.9 [facility] [id number] [place] [address] 29980- 6387 Oct, Anxiety F41.9 ; Post-traumatic stress disorder, chronic F43.12 and Problems related to release from chcf Z65.2 [facility] [id number] [place] [address] 86777- 6136 07 Oct, 2016 Post-traumatic stress disorder, unspecified F43.10 ; Major depressive disorder, recurrent, moderate F33.1 and Problems related to release from chcf Z65.2 [facility] [address] [address]- 7045 Sep, Chronic pain G89.29 and Anxiety F41.9 [facility] [id number] [place] [address] 87696- 1286 Sep, Post-traumatic stress disorder, unspecified F43.10 ; Major depressive disorder, recurrent, moderate F33.1 and Problems related to release from chcf Z65.2 [facility] [id number] [place] [address] 07698- 1586 Sep, Post-traumatic stress disorder, unspecified F43.10 ; Major depressive disorder, recurrent, moderate F33.1 and Problems related to release from chcf Z65.2 [facility] [id number] [place] [address] 89144- 6380 Sep, Chronic pain G89.29 [facility] [id number] [place] [address] 25073- 8543 Aug, Dental caries, unspecified K02.9 [facility] [address] [place] [address] 87739- 5842 Aug, Sleep apnea, obstructive G47.33 ; Obesity E66.9 ; Chronic pain G89.29 ; HTN (hypertension) I10 ; Major depressive disorder, recurrent, moderate F33.1 ; Anxiety F41.9 ; Chronic tension headaches G44.229 ; Mitral valve prolapse I34.1 ; Arrhythmia as indication for cardiac pacemaker replacement I49.9 ; Dental caries, unspecified K02.9 ; Primary insomnia F51.01 and Hyperlipidemia E78.5 [facility] [facility] [address] [address]- 0110 Aug, Post-traumatic stress disorder, unspecified F43.10 ; Major depressive disorder, recurrent, moderate F33.1 and Problems related to release from chcf Z65.2 [facility] [facility] [address] [address]- 0801 Aug, Dental examination Z01.20 [facility] [id number] [address] 13 Aug, 2016 Dental examination Z01.20 [facility] [id number] [place] [address] 81271- 0295 06 Aug, 2016 Post-traumatic stress disorder, unspecified F43.10 ; Major depressive disorder, recurrent, moderate F33.1 and Problems related to release from chcf Z65.2 [facility] [id number] [place] [address] 02241- 3655 05 Aug, 2016 Chronic pain G89.29 and Primary insomnia F51.01 [facility] [id number] [place] [address] 62287- 4959 Jul, [facility] [id number] [place] [address] 80395- 3074 Jul, [place] [id number] [place] [address] 68158- 1519 Jul, Nausea R11.0 [facility] [id number] [place] [address] 64505- 5002 Jul, Arrhythmia as indication for cardiac pacemaker replacement I49.9 [facility] [id number] [place] [address] 31971- 2833 Jul, Post-traumatic stress disorder, unspecified F43.10 ; Major depressive disorder, recurrent, moderate F33.1 and Problems related to release from chcf Z65.2 [place] [address] [place] [address] 06050- 7707 09 Jul, 2016 Anxiety F41.9 [facility] [id number] [place] [address] 24746- 5858 08 Jul, 2016 Chronic pain G89.29 [facility] [facility] [id number] [place] [address] 08010- 8120 02 Jul, 2016 Sleep apnea, obstructive G47.33 ; Hyperlipidemia E78.5 ; Chronic pain G89.29 ; Blindness and low vision H54.10 ; Major depressive disorder, recurrent, moderate F33.1 ; Anxiety F41.9 ; Mitral valve prolapse I34.1 ; Arrhythmia as indication for cardiac pacemaker replacement I49.9 ; Primary insomnia F51.01 ; Bilateral headaches R51 and Environmental allergies Z91.09 [place] [id number] [place] [address] 84649- 7752 Jul, Post-traumatic stress disorder, unspecified F43.10 ; Major depressive disorder, recurrent, moderate F33.1 and Problems related to release from chcf Z65.2 [facility] [id number] [place] [address] 31565- 7532 June, Post-traumatic stress disorder, chronic F43.12 ; Anxiety F41.9 ; Problems related to release from chcf Z65.2 ; Sleep apnea, obstructive G47.33 and Primary insomnia F51.01 [place] [facility] [id number] [place] [address] 21491- 2255 June, [facility] [facility] [id number] [place] [address] 81724- 4437 June, [facility] [id number] [place] [address] 60114- 1174 June, [facility] [facility] [id number] [place] [address] 27356- 4122 June, Chronic pain G89.29 [facility] [id number] [place] [address] 90536- 3692 June, Chronic pain G89.29 [facility] [id number] [place] [address] 79586- 9693 June, Lipoma of left lower extremity D17.24 ; Open wound T14.8 and Swelling of left lower extremity M79.89 [facility] [facility] [id number] [place] [address] 58581- 4334 June, Post-traumatic stress disorder, unspecified F43.10 ; Major depressive disorder, recurrent, moderate F33.1 and Problems related to release from chcf Z65.2 [facility] [facility] [id number] [place] [address] 71918- 5488 May, Lipoma of left lower extremity D17.24 ; Major depressive disorder, recurrent, moderate F33.1 ; Sleep apnea, obstructive G47.33 ; Hyperlipidemia E78.5 ; Obesity E66.9 ; HTN (hypertension) I10 ; Glaucoma H40.9 ; CAD (coronary artery disease) I25.10 ; Chronic tension headaches G44.229 ; Chronic pain G89.29 ; Anxiety F41.9 ; Nausea R11.0 and Primary insomnia F51.01 [place] [address] 56674- 2562 May, [address] 53855- 3036 May, Chronic pain G89.[address] 64480- 7485 May, [address] 24804- 3368 Apr, Post-traumatic stress disorder, unspecified F43.10 ; Major depressive disorder, recurrent, moderate F33.1 and Problems related to release from chcf Z65.2 [place] [id number] [place] [address] 03701- 7690 Apr, Primary insomnia F51.01 ; Post-traumatic stress disorder, chronic F43.12 and Problems related to release from chcf Z65.2 [place] [id number] [place] [address] 42561- 4361 Apr, Post-traumatic stress disorder, unspecified F43.10 ; Major depressive disorder, recurrent, moderate F33.1 and Problems related to release from chcf Z65.[address] 71439- 3784 Apr, [address] 11200- 2552 Apr, Sleep apnea, obstructive G47.33 ; Chronic pain G89.29 ; HTN (hypertension) I10 ; Mitral valve prolapse I34.1 ; Shoulder pain, left M25.512 ; Arrhythmia as indication for cardiac pacemaker replacement I49.9 ; Glaucoma H40.9 ; Bilateral headaches R51 ; Environmental allergies Z91.09 ; Primary insomnia F51.01 and Nausea R11.0 [facility] [id number] [place] [address] 40917- 8451 15 Apr, 2016 [facility] [address] 91671- 6640 15 Apr, 2016 [place] [id number] [place] [address] 71514- 0167 Apr, Post-traumatic stress disorder, unspecified F43.10 ; Major depressive disorder, recurrent, moderate F33.1 and Problems related to release from chcf Z65.2 [place] [id number] [place] [address] 18974- 6420 07 Apr, 2016 HTN (hypertension) I10 [facility] [id number] [place] [address] 52138- 5046 07 Apr, 2016 HTN (hypertension) I10 [facility] [facility] [id number] [place] [address] 25230- 8579 14 Mar, 2016 Chronic pain G89.29 ; Primary insomnia F51.01 and Problems related to release from chcf Z65.2 [place] [address] [place] [address] 77440- 7512 07 Mar, 2016 Post-traumatic stress disorder, unspecified F43.10 ; Major depressive disorder, recurrent, moderate F33.1 and Problems related to release from chcf Z65.2 [place] [id number] [place] [address] 55385- 7605 Feb, Post-traumatic stress disorder, unspecified F43.10 ; Major depressive disorder, recurrent, moderate F33.1 and Problems related to release from chcf Z65.2 [place] [address] [place] [address] 23204- 5693 Feb, Chronic tension headaches G44.229 [facility] [id number] [place] [address] 29592- 1027 Feb, Sleep apnea, obstructive G47.33 ; Obesity [...] pacemaker replacement I49.9 and Primary insomnia F51.01 [place] [address] 60627- 8657 Feb, Post-traumatic stress disorder, unspecified F43.10 and Chronic pain G89.29 [place] [address] 16226- 4407 Feb, [facility] [address] [id number] Feb, Dental caries K02.[address] 23869- 5197 06 Feb, 2016 [place] [address] 15200- 6282 Feb, Post-traumatic stress disorder, unspecified F43.10 ; Major depressive disorder, recurrent, moderate F33.1 and Problems related to release from chcf Z65.2 [place] [id number] [place] [address] 32128- 4750 Jan, Sleep apnea, obstructive G47.33 and Chronic pain G89.29 [place] [address] 12307- 7311 Jan, [place] [address] 80151- 7558 14 Jan, 2016 Dental examination Z01.20 [place] [address] [place] [address]- 8630 Jan, [facility] [address] [address]- 0957 Jan, [place] [id number] [place] [address] 91354- 5775 Dec, Post-traumatic stress disorder, unspecified F43.10 ; Major depressive disorder, recurrent, moderate F33.1 and Problems related to release from chcf Z65.2 [place] [id number] [place] [address] 55169- 7498 Dec, Encounter for immunization Z23 ; Problems related to release from chcf Z65.2 ; Sleep apnea, obstructive G47.33 and Post-traumatic stress disorder, chronic F43.12 [place] [id number] [place] [address] 61722- 8628 Dec, Sleep apnea, obstructive G47.33 ; Hyperlipidemia E78.5 ; Chronic pain G89.29 ; Glaucoma H40.9 ; HTN (hypertension) I10 ; Post-traumatic stress disorder, unspecified F43.10 ; Anxiety F41.9 ; Chronic tension headaches G44.229 ; Mitral valve prolapse I34.1 and CAD (coronary artery disease) I25.10 [place] [id number] [place] [address] 14023- 8402 Dec, Post-traumatic stress disorder, unspecified F43.10 ; Major depressive disorder, recurrent, moderate F33.1 and Problems related to release from chcf Z65.2 [place] [id number] [address]- 0480 Nov, Chronic pain G89.29 [place] [facility] [id number] [place] [address] 78540- 4329 Nov, Post-traumatic stress disorder, unspecified F43.10 ; Major depressive disorder, recurrent, moderate F33.1 and Problems related to release from chcf Z65.2 [place] [id number] [place] [address] 33981- 8242 Oct, [facility] [address] [address]- 9488 Oct, [facility] [id number] [place] [address] 07646- 9392 Oct, Post-traumatic stress disorder, unspecified F43.10 ; Major depressive disorder, recurrent, moderate F33.1 and Problems related to release from chcf Z65.2 [facility] [id number] [place] [address] 21180- 9441 08 Oct, 2015 [facility] [id number] [place] [address] 37486- 2709 07 Oct, 2015 Environmental allergies Z91.09 ; Cough R05 and Open-angle glaucoma of both eyes H40.10X0 [facility] [id number] [place] [address] 28822- 8652 Sep, [facility] [id number] [place] [address] 54980- 6579 Sep, Post-traumatic stress disorder, unspecified F43.10 ; Major depressive disorder, recurrent, moderate F33.1 and Problems related to release from chcf Z65.2 [facility] [id number] [place] [address] 60399- 2468 Sep, Chronic pain G89.29 [facility] [id number] [place] [address] 33408- 8131 Sep, Pain in left shoulder M25.512 ; Pain in right shoulder M25.511 and Other chronic pain G89.29 [facility] [id number] [address] 4[address] Sep, [facility] [id number] [place] [address] 83245- 7122 Sep, [facility] [id number] [place] [address] 36181- 7188 Sep, [facility] [id number] [place] [address] [id number] Aug, Dental examination Z01.20 [facility] [id number] [address] Aug, Post-traumatic stress disorder, unspecified F43.10 ; Open- angle glaucoma of both eyes H40.10X0 and Problems related to release from chcf Z65.2 [facility] [id number] [address] Aug, [facility] [id number] [place] [address] 74195- 8854 Aug, Sleep apnea, obstructive G47.33 ; Obesity E66.9 ; Hyperlipidemia E78.5 ; Bilateral headaches R51 ; HTN (hypertension) I10 ; Post- traumatic stress disorder, unspecified F43.10 ; Anxiety F41.9 ; Neuropathy G62.9 ; Glaucoma H40.9 and Chronic pain G89.29 [facility] [id number] [place] [address] [id number] Aug, Encounter for dental examination Z01.20 [facility] [id number] [place] [address] 43373- 9661 Aug, Post-traumatic stress disorder, unspecified F43.10 ; Major depressive disorder, recurrent, moderate F33.1 and Problems related to release from chcf Z65.2 [facility] [id number] [address] 89[address] Aug, [facility] [id number] [address] 7[address] Jul, [facility] [id number] [address] Jul, Post-traumatic stress disorder, unspecified F43.10 and Major depressive disorder, recurrent, moderate F33.1 [facility] [id number] [address] 9025 Jul, [facility] [id number] [address]- 7083 Jul, [facility] [id number] [place] [address] 15621- 7981 Jul, Chronic pain G89.29 [facility] [id number] [place] [address] 957920- 9228 June, Post-traumatic stress disorder, unspecified F43.10 and Major depressive disorder, recurrent, moderate F33.1 [facility] [id number] [place] [address] 89634- 1102 June, [facility] [id number] [place] [address] 34594- 4878 June, Chronic pain G89.29 [facility] [id number] [place] [address] 74997- 4727 June, Post-traumatic stress disorder, unspecified F43.10 and Major depressive disorder, recurrent, moderate F33.1 [facility] [id number] [place] [address] 14253- 8310 May, Post-traumatic stress disorder, unspecified F43.10 and Major depressive disorder, recurrent, moderate F33.1 [facility] [id number] [place] [address] 18396- 5674 May, [facility] [id number] [place] [address] 35670- 1732 May, [facility] [id number] [place] [address] 35460- 6637 May, [facility] [id number] [place] [address] 25021- 2270 Apr, [facility] [id number] [place] [address] 70446- 3929 Apr, Post-traumatic stress disorder, unspecified F43.10 and Sleep apnea, obstructive G47.33 [facility] [id number] [place] [address] 23517- 5656 Apr, [facility] [facility] [id number] [place] [address] 65371- 3678 Apr, Shoulder pain, left M25.512 [facility] [id number] [place] [address] 45926- 1268 Apr, Post-traumatic stress disorder, unspecified F43.10 and Major depressive disorder, recurrent, moderate F33.1 [facility] [id number] [place] [address] 01789- 4350 17 Apr, 2015 [facility] [id number] [place] [address] 40641- 5734 Apr, [facility] [id number] [place] [address] 52799- 9740 Apr, [facility] [id number] [place] [address] 66194- 4885 Apr, Left shoulder pain M25.512 [facility] [id number] [place] [address] 38036- 6143 Mar, [facility] [id number] [place] [address] 87376- 2065 Mar, [facility] [id number] [place] [address] 64612- 9949 Mar, [facility] [id number] [place] [address] 55897- 2998 Mar, Sleep apnea, obstructive G47.33 ; Obesity E66.9 ; Chronic pain G89.29 ; Hyperlipidemia E78.5 ; HTN (hypertension) I10 ; Blindness and low vision H54.10 ; Major depressive disorder, recurrent, moderate F33.1 and Anxiety F41.9 [facility] [id number] [place] [address] 11772- 8928 Mar, [facility] [id number] [place] [address] 90508- 9493 Mar, Post-traumatic stress disorder, unspecified F43.10 and Major depressive disorder, recurrent, moderate F33.1 [facility] [id number] [place] [address] 91069- 6787 Mar, [address] [address] [address]- 8846 Mar, HTN (hypertension) I10 ; Blindness and low vision H54.10 ; Obesity E66.9 ; Hyperlipidemia E78.5 ; Glaucoma H40.9 ; Chronic pain G89.29 and CAD (coronary artery disease) I25.10 [id number] [place] [address] 24629- 3016 Feb, [address] 21322- 5644 Feb, Post-traumatic stress disorder, unspecified F43.10 ; Obesity E66.9 ; Sleep apnea, obstructive G47.33 and Open-angle glaucoma of both eyes H40.10X0 [id number] [place] [address] 68072- 0771 Feb, Post-traumatic stress disorder, unspecified F43.10 and Major depressive disorder, recurrent, moderate F33.1 [id number] [place] [address] 18826- 7548 Feb, [address] [place] [id number] [place] [address] 27838- 2966 Feb, [address] 23279- 2642 Feb, HTN (hypertension) I10 ; Post-traumatic stress disorder, unspecified F43.10 ; Blindness and low vision H54.10 ; Obesity E66.9 ; Hyperlipidemia E78.5 ; Chronic pain G89.29 ; Glaucoma H40.9 ; Mitral valve prolapse I34.1 and Bilateral headaches R51 [id number] [place] [address] 11606- 0877 Feb, [id number]- 2546 Feb, Post-traumatic stress disorder, unspecified F43.10 and Major depressive disorder, recurrent, moderate F33.1 [facility] [facility] [id number] [place] [address] 34156- 7449 Feb, [facility] [facility] [id number] [place] [address] 54401- 6841 Feb, [place] [address] 72616- 3328 Jan, [facility] [id number] [place] [address] 65517- 5556 Jan, [facility] [facility] [id number] [place] [address] 797301- 4350 Jan, Obesity E66.9 ; HTN (hypertension) I10 ; Blindness and low vision H54.10 ; Major depressive disorder, recurrent, moderate F33.1 ; Glaucoma H40.9 ; Hyperlipidemia E78.5 ; Sleep apnea, obstructive G47.33 ; Chronic pain G89.29 ; Anxiety F41.9 ; Chronic tension headaches G44.229 and Cough R05 [facility] [facility] [id number] [place] [address] 24127- 3415 Jan, [facility] [facility] [id number] [place] [address] 89017- 4715 Jan, [facility] [facility] [id number] [place] [address] 82626- 9884 Jan, Post-traumatic stress disorder, unspecified F43.10 ; Obesity E66.9 ; Sleep apnea, obstructive G47.33 and Open-angle glaucoma of both eyes H40.10X0 [place] [id number] [place] [address] 30414- 9666 Jan, [place] [id number] [place] [address]67 Jan, Post-traumatic stress disorder, unspecified F43.10 and Major depressive disorder, recurrent, moderate F33.1 [facility] [id number] [place] [address] 04150- 2601 Dec, [facility] [address] 41413- 3835 Dec, Sleep apnea, obstructive G47.33 ; Obesity E66.9 ; Hyperlipidemia E78.5 ; Glaucoma H40.9 ; Chronic pain G89.29 ; HTN (hypertension ) I10 ; Blindness and low vision H54.10 ; Anxiety F41.9 and CAD (coronary artery disease) I25.10 [facility] [id number] [place] [address] 72248- 4225 Nov, [facility] [address] 94157- 4407 Nov, [facility] [address] 13201- 1493 Nov, [facility] [address] 53571- 7017 Nov, [facility] [id number] [place] [address] 34321- 8231 Nov, [facility] [address] 08332- 6753 Nov, Encounter for immunization Z23 ; Sleep apnea, obstructive G47.33 ; Obesity E66.9 ; Hyperlipidemia E78.5 ; Glaucoma H40.9 ; Chronic pain G89.29 ; Anxiety F41.9 ; Chronic tension headaches G44.229 and HTN (hypertension ) I10 [facility] [id number] [place] [address] 00473- 1921 Nov, [facility] [address] 33362- 7573 Nov, [facility] [address] 53604- 3778 06 Nov, 2014 Dizziness R42 [facility] [address] 16190- 1622 Nov, [facility] [id number] [place] [address] 86019- 6786 Oct, [facility] [id number] [place] [address] 81964- 0313 Oct, [facility] [id number] [place] [address] 19903- 2106 Oct, [facility] [id number] [place] [address] 18274- 4656 Oct, [facility] [id number] [place] [address] 71569- 6290 Oct, Dizziness 780.4 ; Essential hypertension 401.9 ; Obesity 278.00 ; Hyperlipidemia 272.4 ; Chronic pain 338.29 ; Glaucoma 365.9 and Anxiety 300.00 [place] [id number] [place] [address] 78710- 3671 Oct, Essential hypertension 401.9 ; Hyperlipidemia 272.4 ; Glaucoma 365.9 ; Obesity 278.00 ; Chronic pain 338.29 and Allergy to insects V15.06 [facility] [id number] [place] [address] 77679- 5962 Sep, [facility] [id number] [place] [address] 13518- 3261 Sep, [facility] [id number] [place] [address] 45453- 8930 Sep, [facility] [id number] [place] [address] 12528- 8962 Sep, [facility] [id number] [place] [address] 77049- 6818 Aug, Essential hypertension 401.9 ; Obesity 278.00 ; Hyperlipidemia 272.4 ; Glaucoma 365.9 ; Lipoma 214.9 ; Mitral valve prolapse 424.0 ; Angina at rest 413.9 ; Lymphedema 457.1 and Chronic pain 338.29 IMMUNIZATIONS No Known Immunizations SOCIAL HISTORY Never Assessed REASON FOR VISIT medication--[email or web address], See telephone encounter PLAN OF CARE VITAL SIGNS MEDICATIONS Unknown [...]
--- OUTSIDE RECORDS SUMMARY | 2018-02-04 14:54 | XMS REPORT ---
Author Author [facility] Address [address] [place] [address] Care Team Providers Care Computer Networking Instructor Name Role Phone [facility] Unavailable PROBLEMS Type Condition ICD9-CM Code [id number] Code Onset Dates Condition Status SNOMED Code Problem Primary insomnia F51.01 Active 9629010 Problem Other male erectile dysfunction N52.8 Active 634080050 Problem Morbid (severe) obesity due to excess calories E66.01 Active 126032974 Problem Sarcoidosis D86.9 Active 02559174 Problem Blindness and low vision H54.10 Active 324036482 Problem Problems related to release from group home Z65.2 Active 590569341754233 Problem Myocarditis, unspecified chronicity, 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 Active 25698982 Problem Chronic pain G89.29 Active 27764601 Problem 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 Active 979329113 Problem Body mass index (BMI) of 40.0-44.9 in adult Z68.41 Active 835967573 Problem Chronic pain syndrome G89.4 Active 462701713 Problem Migraine without aura and without status migrainosus, not intractable G43.009 Active 756756968 Problem Anxiety F41.9 Active 75597424 Problem Major depressive disorder, recurrent, moderate F33.1 Active 91488418 Problem HTN (hypertension) I10 Active 16349177 Problem Chronic tension headaches G44.229 Active 335556613 Problem CAD (coronary artery disease) I25.10 Active 03569400 Problem Post-traumatic stress disorder, chronic F43.12 Active 916045008 Problem Hyperlipidemia E78.5 Active 76707630 Problem Open-angle glaucoma of both eyes H40.10X0 Active 33412910 Problem Environmental allergies Z91.09 Active 118852599 Problem Sleep apnea, obstructive G47.33 Active 58962345 Problem Mitral valve prolapse I34.1 Active 280556690 Problem Arrhythmia as indication for cardiac pacemaker replacement I49.9 Active 10402655 ALLERGIES No Information ENCOUNTERS Encounter Location Date Diagnosis [facility] [address] [address] Oct, [facility] [id number] [place] [address] 88159- 5043 Oct, [facility] [id number] [place] [address] 31885- 7351 Sep, [facility] [id number] [place] [address] 10404- 3201 Sep, [facility] [id number] [place] [address] 67817- 5467 Sep, [facility] [id number] [place] [address] 44957- 2318 Aug, Post-traumatic stress disorder, unspecified F43.10 ; Major depressive disorder, recurrent, moderate F33.1 and Problems related to release from group home Z65.2 [facility] [id number] [place] [address] 63953- 1128 11 Aug, 2017 [facility] [id number] [place] [address] 89309- 3499 Aug, Left leg pain M79.605 [facility] [address] [place] [address] 03759- 5313 Jul, Post-traumatic stress disorder, chronic F43.12 ; Anxiety F41.9 ; Problems related to release from group home Z65.2 and BMI 40.0-44.9, adult Z68.41 [facility] [address] [place] [address] 07356- 3697 Jul, HTN (hypertension) I10 ; Body mass index (BMI) of 40.0-44.9 in adult Z68.41 and Acute swimmer''s ear of both sides H60.333 [facility] [address] [place] [address] 36339- 6917 Jul, Glaucoma H40.9 [facility] [id number] [place] [address] 84516- 1405 14 Jul, 2017 [facility] [id number] [place] [address] 09746- 1737 13 Jul, 2017 Sarcoidosis D86.9 [facility] [id number] [place] [address] 01306- 5882 Jul, Left leg pain M79.605 [facility] [id number] [place] [address] 38043- 3891 12 Jul, 2017 Sarcoidosis D86.9 [facility] [id number] [place] [address] 56539- 8004 Jul, Post-traumatic stress disorder, unspecified F43.10 ; Major depressive disorder, recurrent, moderate F33.1 and Problems related to release from group home Z65.2 [facility] [id number] [place] [address] 36209- 4395 June, [facility] [id number] [place] [address] 23780 -7765 June, Sore throat J02.9 and BMI 40.0-44.9, adult Z68.41 [facility] [id number] [place] [address] 45493- 9137 June, [facility] [address], [place] [address] 1150 June, [facility] [id number] [place] [address] 87525- 8810 June, [facility] [id number] [place] [address] 69349- 1151 June, Left leg pain M79.605 [facility] [id number] [place] [address] 44299- 9845 June, Sarcoidosis D86.9 [facility] [id number] [address] 4663 June, [facility] [address] [address] 3324 June, [facility] [id number] [place] [address] 38560- 2146 June, Left leg pain M79.605 [facility] [address] [place] [address] 60458- 0319 May, [facility] [id number] [place] [address] 94134- 3152 May, [facility] [address] [place] [address] 40206- 0311 May, [facility] [id number] [place] [address] 85407- 7464 May, Left leg pain M79.605 [facility] [id number] [place] [address] 29689- 0473 May, Post-traumatic stress disorder, unspecified F43.10 ; Major depressive disorder, recurrent, moderate F33.1 and Problems related to release from group home Z65.2 [facility] [address] [place] [address] 42272- 9336 May, Chronic pain G89.29 ; Anxiety F41.9 ; Chest pain, unspecified type R07.9 and BMI 40.0-44.9, adult Z68.41 [facility] [address], [place] [address] Apr, [facility] [address] [place] [address] 95045- 9526 Apr, Left leg pain M79.605 [facility] [id number] [place] [address] 58534- 4267 Apr, Post-traumatic stress disorder, unspecified F43.10 ; Problems related to release from group home Z65.2 ; Anxiety F41.9 and BMI 40.0-44.9 , adult Z68.41 [facility] [id number] [place] [address] 00425- 2287 22 Apr, 2017 [place] [address] 98729- 1638 Apr, Left leg pain M79.605 [place] [address] 89244- 4515 13 Apr, 2017 Post-traumatic stress disorder, unspecified F43.10 ; Major depressive disorder, recurrent, moderate F33.1 and Problems related to release from group home Z65.2 [place] [address] 54027- 0060 12 Apr, 2017 [place] [address] 10452- 3706 12 Apr, 2017 Chronic pain G89.29 ; 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 ; Morbid (severe) obesity due to excess calories E66.01 ; Anxiety F41.9 and BMI 40.0-44.9, adult Z68.41 [facility] [place] [address] 60219 -1391 Apr, Sore throat J02.9 and BMI 40.0-44.9, adult Z68.41 [place] [address] 24773- 5416 02 Apr, 2017 Left leg pain M79.605 [facility] [address] [id number] Mar, Dental examination Z01.20 [place] [address] 87292- 2220 Mar, [facility] [address] 21897 -3903 20 Mar, 2017 Cough R05 ; Viral gastroenteritis A08.4 and BMI 40.0-44.9, adult Z68.41 [place] [address] 78084- 0220 Mar, Left leg pain M79.605 [place] [address] [place] [address] 28607- 5905 Mar, Post-traumatic stress disorder, unspecified F43.10 ; Major depressive disorder, recurrent, moderate F33.1 and Problems related to release from group home Z65.2 [place] [id number] [place] [address] 04810- 0136 Feb, Left leg pain M79.605 [place] [id number] [place] [address] 42272- 3261 Feb, [place] [id number] [place] [address] 51039- 8138 Feb, BMI 40.0-44.9, adult Z68.41 ; Chronic pain syndrome G89.4 ; Migraine without aura and without status migrainosus, not intractable G43.009 ; Mitral valve prolapse I34.1 and 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 [place] [id number] [place] [address] 52316- 3589 Feb, Post-traumatic stress disorder, chronic F43.12 ; Anxiety F41.9 ; Problems related to release from group home Z65.2 and BMI 40.0-44.9, adult Z68.41 [place] [address] [place] [address] 21332- 7833 Feb, Post-traumatic stress disorder, unspecified F43.10 ; Major depressive disorder, recurrent, moderate F33.1 and Problems related to release from group home Z65.2 [place] [address] [place] [address] 84605- 2459 Feb, Left leg pain M79.605 [place] [id number] [place] [address] 80129- 3552 Jan, Post-traumatic stress disorder, unspecified F43.10 ; Major depressive disorder, recurrent, moderate F33.1 and Problems related to release from group home Z65.2 [place] [id number] [place] [address] 93038- 1374 Jan, [facility] [address], [place] [address]- 0259 Jan, [facility] [address], [place] [address]- 3448 Jan, Anxiety F41.9 [facility] [address] [place] [address] 62412- 1363 Jan, Left leg pain M79.605 [facility] [address] [place] [address] 00133- 4519 Dec, Left leg pain M79.605 [facility] [address] [place] [address] 80101- 3876 Dec, [facility] [address] [place] [address] 41660- 1019 15 Dec, 2016 Post-traumatic stress disorder, unspecified F43.10 ; Major depressive disorder, recurrent, moderate F33.1 and Problems related to release from group home Z65.2 [facility] [address], [place] [address]- 0682 31 Nov, 2016 Chronic pain G89.29 and Anxiety F41.9 [facility] [address], [place] [address]- 8487 24 Nov, 2016 Chronic pain G89.29 and Anxiety F41.9 [facility] [address], [place] [address]- 8954 16 Nov, 2016 Post-traumatic stress disorder, unspecified F43.10 ; Major depressive disorder, recurrent, moderate F33.1 and Problems related to release from group home Z65.2 [facility] [address], [place] [address]- 8014 09 Nov, 2016 Other abnormal findings in specimens from other organs, systems and tissues R89.8 ; Other male erectile dysfunction N52.8 ; Body mass index (BMI) of 40.0-44.9 in adult Z68.41 and Morbid (severe) obesity due to excess calories E66.01 [place] [address], [place] [address]- 9158 02 Nov, 2016 Post-traumatic stress disorder, unspecified F43.10 ; Major depressive disorder, recurrent, moderate F33.1 and Problems related to release from group home Z65.2 [facility] [address] [id number] 29 Oct, 2016 Dental examination Z01.20 [place] [id number] [place] [address] 01541- 2808 Oct, [place] [id number] [place] [address] 36772- 1476 Oct, Encounter for immunization Z23 [place] [id number] [place] [address] 25261- 1059 Oct, Chronic pain G89.29 ; Anxiety F41.9 ; Arrhythmia as indication for cardiac pacemaker replacement I49.9 and Glaucoma H40.9 [place] [address], [place] [address]- 2804 Oct, Anxiety F41.9 ; Post-traumatic stress disorder, chronic F43.12 and Problems related to release from group home Z65.2 [place] [address] [place] [address] 81476- 1700 Oct, Post-traumatic stress disorder, unspecified F43.10 ; Major depressive disorder, recurrent, moderate F33.1 and Problems related to release from group home Z65.2 [facility] [address], [place] [address]- 5909 Sep, Chronic pain G89.29 and Anxiety F41.9 [place] [id number] [place] [address] 14309- 5191 Sep, Post-traumatic stress disorder, unspecified F43.10 ; Major depressive disorder, recurrent, moderate F33.1 and Problems related to release from group home Z65.2 [place] [id number] [place] [address] 29570- 1221 Sep, Post-traumatic stress disorder, unspecified F43.10 ; Major depressive disorder, recurrent, moderate F33.1 and Problems related to release from group home Z65.2 [place] [address] [place] [address] 76850- 8442 Sep, Chronic pain G89.29 [place] [address] [place] [address] 80790- 3681 Aug, Dental caries, unspecified K02.9 [place] [id number] [place] [address] 87244- 3658 Aug, Sleep apnea, obstructive G47.33 ; Obesity E66.9 ; Chronic pain G89.29 ; HTN (hypertension) I10 ; Major depressive disorder, recurrent, moderate F33.1 ; Anxiety F41.9 ; Chronic tension headaches G44.229 ; Mitral valve prolapse I34.1 ; Arrhythmia as indication for cardiac pacemaker replacement I49.9 ; Dental caries, unspecified K02.9 ; Primary insomnia F51.01 and Hyperlipidemia E78.5 [place] [id number] [place] [address] 18697- 0525 Aug, Post-traumatic stress disorder, unspecified F43.10 ; Major depressive disorder, recurrent, moderate F33.1 and Problems related to release from group home Z65.2 [place] [address], [place] [address]- 4083 Aug, Dental examination Z01.20 [facility] [address] [place] [address] [id number] Aug, Dental examination Z01.20 [facility] [address] [place] [address] 42712- 3688 Aug, Post-traumatic stress disorder, unspecified F43.10 ; Major depressive disorder, recurrent, moderate F33.1 and Problems related to release from group home Z65.2 [place] [address], [place] [address]- 0246 Aug, Chronic pain G89.29 and Primary insomnia F51.01 [place] [address] [place] [address] 09606- 9607 Jul, [place] [id number] [place] [address] 84731- 8977 Jul, [place] [id number] [place] [address] 25839- 8688 Jul, Nausea R11.0 [place] [id number] [place] [address] 19245- 9406 Jul, Arrhythmia as indication for cardiac pacemaker replacement I49.9 [place] [address] 719334- 7518 13 Jul, 2016 Post-traumatic stress disorder, unspecified F43.10 ; Major depressive disorder, recurrent, moderate F33.1 and Problems related to release from group home Z65.2 [place] [id number] [place] [address] 20110- 0354 09 Jul, 2016 Anxiety F41.9 [place] [id number] [place] [address] 17221- 6582 08 Jul, 2016 Chronic pain G89.29 [place] [id number] [place] [address] 62561- 0002 02 Jul, 2016 Sleep apnea, obstructive G47.33 ; Hyperlipidemia E78.5 ; Chronic pain G89.29 ; Blindness and low vision H54.10 ; Major depressive disorder, recurrent, moderate F33.1 ; Anxiety F41.9 ; Mitral valve prolapse I34.1 ; Arrhythmia as indication for cardiac pacemaker replacement I49.9 ; Primary insomnia F51.01 ; Bilateral headaches R51 and Environmental allergies Z91.09 [place] [id number] [place] [address] 11157- 3528 Jul, Post-traumatic stress disorder, unspecified F43.10 ; Major depressive disorder, recurrent, moderate F33.1 and Problems related to release from group home Z65.2 [place] [id number] [place] [address] 62664- 1462 June, Post-traumatic stress disorder, chronic F43.12 ; Anxiety F41.9 ; Problems related to release from group home Z65.2 ; Sleep apnea, obstructive G47.33 and Primary insomnia F51.01 [place] [id number] [place] [address] 50869- 5712 June, [place] [address] 11460- 5094 June, [facility] [address] 01482- 0975 June, [place] [address] 92070- 9944 June, Chronic pain G89.29 [place] [address] 26441- 9647 June, Chronic pain G89.29 [place] [address] 31478- 9312 June, Lipoma of left lower extremity D17.24 ; Open wound T14.8 and Swelling of left lower extremity M79.89 [place] [id number] [place] [address] 11101- 9410 June, Post-traumatic stress disorder, unspecified F43.10 ; Major depressive disorder, recurrent, moderate F33.1 and Problems related to release from group home Z65.2 [place] [id number] [place] [address] 54986- 5952 May, Lipoma of left lower extremity D17.24 ; Major depressive disorder, recurrent, moderate F33.1 ; Sleep apnea, obstructive G47.33 ; Hyperlipidemia E78.5 ; Obesity E66.9 ; HTN (hypertension) I10 ; Glaucoma H40.9 ; CAD (coronary artery disease) I25.10 ; Chronic tension headaches G44.229 ; Chronic pain G89.29 ; Anxiety F41.9 ; Nausea R11.0 and Primary insomnia F51.01 [place] [address] [place] [address]- 3115 May, [place] [id number] [place] [address] 40916- 1617 May, Chronic pain G89.29 [place] [id number] [place] [address] 47229- 0507 May, [place] [address] 92260- 6383 31 Apr, 2016 Post-traumatic stress disorder, unspecified F43.10 ; Major depressive disorder, recurrent, moderate F33.1 and Problems related to release from group home Z65.[address] 60317- 4727 28 Apr, 2016 Primary insomnia F51.01 ; Post-traumatic stress disorder, chronic F43.12 and Problems related to release from group home Z65.[address] 60305- 5689 17 Apr, 2016 Post-traumatic stress disorder, unspecified F43.10 ; Major depressive disorder, recurrent, moderate F33.1 and Problems related to release from group home Z65.2 [place] [id number] [place] [address] 02084- 2575 16 Apr, 2016 [place] [address] [place] [address] 38033- 9751 16 Apr, 2016 Sleep apnea, obstructive G47.33 ; Chronic pain G89.29 ; HTN (hypertension) I10 ; Mitral valve prolapse I34.1 ; Shoulder pain, left M25.512 ; Arrhythmia as indication for cardiac pacemaker replacement I49.9 ; Glaucoma H40.9 ; Bilateral headaches R51 ; Environmental allergies Z91.09 ; Primary insomnia F51.01 and Nausea R11.0 [place] [id number] [place] [address] 97800- 9689 Apr, [place] [id number] [place] [address] 91895- 1266 Apr, [place] [id number] [address]- 6767 Apr, Post-traumatic stress disorder, unspecified F43.10 ; Major depressive disorder, recurrent, moderate F33.1 and Problems related to release from group home Z65.2 [place] [address] [address]- 0565 Apr, HTN (hypertension) I10 [place] [id number] [place] [address] 80104- 7230 Apr, HTN (hypertension) I10 [place] [id number] [place] [address] 09245- 1084 Mar, Chronic pain G89.29 ; Primary insomnia F51.01 and Problems related to release from group home Z65.2 [place] [id number] [place] [address] 30941- 5588 07 Mar, 2016 Post-traumatic stress disorder, unspecified F43.10 ; Major depressive disorder, recurrent, moderate F33.1 and Problems related to release from group home Z65.2 [place] [id number] [place] [address] 36468- 8012 Feb, Post-traumatic stress disorder, unspecified F43.10 ; Major depressive disorder, recurrent, moderate F33.1 and Problems related to release from group home Z65.2 [place] [address] [place] [address] 48543- 2575 Feb, Chronic tension headaches G44.229 [place] [address] [place] [id number] [place] [address] 86621- 9409 Feb, Sleep apnea, obstructive G47.33 ; Obesity [...] pacemaker replacement I49.9 and Primary insomnia F51.01 [facility] [id number] [place] [address] 65463- 3532 17 Feb, 2016 Post-traumatic stress disorder, unspecified F43.10 and Chronic pain G89.29 [facility] [id number] [place] [address] 47689- 0784 Feb, [facility] [address] [place] [id number] [place] [address] [id number] Feb, Dental caries K02.9 [place] [address] [id number] [place] [address] 81453- 9509 Feb, [place] [address] [address] [id number] [place] [address] 28627- 5715 Feb, Post-traumatic stress disorder, unspecified F43.10 ; Major depressive disorder, recurrent, moderate F33.1 and Problems related to release from group home Z65.2 [place] [address] [id number] [place] [address] 18922- 3111 20 Jan, 2016 Sleep apnea, obstructive G47.33 and Chronic pain G89.29 [place] [address] [id number] [place] [address] 80038- 0128 Jan, [place] [address] [id number] [place] [address] 81288- 3262 14 Jan, 2016 Dental examination Z01.20 [place] [address] [id number] [place] [address] 45883- 6830 Jan, [place] [address] [place] [id number] [place] [address] 13881- 9098 Jan, [place] [address] [id number] [place] [address] 77559- 8766 Dec, Post-traumatic stress disorder, unspecified F43.10 ; Major depressive disorder, recurrent, moderate F33.1 and Problems related to release from group home Z65.2 [place] [address] [id number] [place] [address] 33387- 0852 Dec, Encounter for immunization Z23 ; Problems related to release from group home Z65.2 ; Sleep apnea, obstructive G47.33 and Post-traumatic stress disorder, chronic F43.12 [place] [id number] [place] [address] 32792- 3044 Dec, Sleep apnea, obstructive G47.33 ; Hyperlipidemia E78.5 ; Chronic pain G89.29 ; Glaucoma H40.9 ; HTN (hypertension) I10 ; Post-traumatic stress disorder, unspecified F43.10 ; Anxiety F41.9 ; Chronic tension headaches G44.229 ; Mitral valve prolapse I34.1 and CAD (coronary artery disease) I25.10 [facility] [id number] [place] [address] 65414- 9890 Dec, Post-traumatic stress disorder, unspecified F43.10 ; Major depressive disorder, recurrent, moderate F33.1 and Problems related to release from group home Z65.2 [facility] [address] 90715- 5052 Nov, Chronic pain G89.29 [facility] [id number] [place] [address] 21311- 7573 Nov, Post-traumatic stress disorder, unspecified F43.10 ; Major depressive disorder, recurrent, moderate F33.1 and Problems related to release from group home Z65.2 [facility] [id number] [place] [address] 93077- 6485 Oct, [facility] [id number] [place] [address] 31550- 8983 Oct, [facility] [id number] [place] [address] 57184- 8755 16 Oct, 2015 Post-traumatic stress disorder, unspecified F43.10 ; Major depressive disorder, recurrent, moderate F33.1 and Problems related to release from group home Z65.2 [facility] [id number] [place] [address] 99889- 0268 Oct, [facility] [address] [address] Oct, Environmental allergies Z91.09 ; Cough R05 and Open-angle glaucoma of both eyes H40.10X0 [facility] [address] [address] 37[address] Sep, [facility] [id number] [place] [address] 04253- 4469 Sep, Post-traumatic stress disorder, unspecified F43.10 ; Major depressive disorder, recurrent, moderate F33.1 and Problems related to release from group home Z65.2 [facility] [id number] [place] [address] 30202- 6011 Sep, Chronic pain G89.29 [facility] [id number] [place] [address] 48321- 2121 Sep, Pain in left shoulder M25.512 ; Pain in right shoulder M25.511 and Other chronic pain G89.29 [facility] [id number] [place] [address] 40913- 9619 Sep, [facility] [id number] [place] [address] 11072- 8818 Sep, [facility] [id number] [place] [address] 52928- 1004 Sep, [facility] [id number] [place] [address] [id number] Aug, Dental examination Z01.20 [facility] [id number] [place] [address] 71650- 1717 Aug, Post-traumatic stress disorder, unspecified F43.10 ; Open- angle glaucoma of both eyes H40.10X0 and Problems related to release from group home Z65.2 [facility] [id number] [place] [address] 58552- 6059 Aug, [facility] [id number] [place] [address] 78472- 6376 Aug, Sleep apnea, obstructive G47.33 ; Obesity E66.9 ; Hyperlipidemia E78.5 ; Bilateral headaches R51 ; HTN (hypertension) I10 ; Post- traumatic stress disorder, unspecified F43.10 ; Anxiety F41.9 ; Neuropathy G62.9 ; Glaucoma H40.9 and Chronic pain G89.29 [facility] [address] [id number] Aug, Encounter for dental examination Z01.20 [facility] [id number] [place] [address] 71053- 0735 Aug, Post-traumatic stress disorder, unspecified F43.10 ; Major depressive disorder, recurrent, moderate F33.1 and Problems related to release from group home Z65.2 [facility] [id number] [place] [address] 24221- 9314 Aug, [facility] [id number] [place] [address] 92273- 7339 Jul, [facility] [id number] [place] [address] 56546- 3432 Jul, Post-traumatic stress disorder, unspecified F43.10 and Major depressive disorder, recurrent, moderate F33.1 [facility] [id number] [place] [address] 48085- 5013 Jul, [facility] [id number] [place] [address] 86647- 9709 Jul, [facility] [id number] [place] [address] 15916- 3476 Jul, Chronic pain G89.29 [facility] [id number] [place] [address] 49170- 8991 June, Post-traumatic stress disorder, unspecified F43.10 and Major depressive disorder, recurrent, moderate F33.1 [facility] [id number] [place] [address] 16387- 6921 June, [facility] [id number] [place] [address] 67336- 9771 June, Chronic pain G89.29 [facility] [id number] [place] [address]12 June, Post-traumatic stress disorder, unspecified F43.10 and Major depressive disorder, recurrent, moderate F33.1 [facility] [id number] [place] [address] 24625- 3370 May, Post-traumatic stress disorder, unspecified F43.10 and Major depressive disorder, recurrent, moderate F33.1 [facility] [id number] [place] [address] 72462- 4976 May, [facility] [id number] [place] [address] 20414- 9029 May, [facility] [id number] [place] [address] 92161- 1299 May, [facility] [id number] [place] [address] 65149- 6205 Apr, [facility] [id number] [place] [address] 14642- 9577 Apr, Post-traumatic stress disorder, unspecified F43.10 and Sleep apnea, obstructive G47.33 [facility] [id number] [place] [address] 26920- 1293 Apr, [facility] [id number] [place] [address] 83559- 6098 Apr, Shoulder pain, left M25.512 [facility] [id number] [place] [address] 62515- 8653 Apr, Post-traumatic stress disorder, unspecified F43.10 and Major depressive disorder, recurrent, moderate F33.1 [facility] [id number] [place] [address] 35935- 6215 Apr, [facility] [id number] [place] [address] 12670- 0528 Apr, [facility] [id number] [place] [address] 58813- 0467 Apr, [facility] [id number] [place] [address] 0839 Apr, Left shoulder pain M25.512 [facility] [id number] [place] [address] 39761- 5764 Mar, [facility] [id number] [place] [address] 89815- 2957 Mar, [facility] [id number] [place] [address] 63637- 0447 Mar, [facility] [id number] [place] [address] 97499- 3958 Mar, Sleep apnea, obstructive G47.33 ; Obesity E66.9 ; Chronic pain G89.29 ; Hyperlipidemia E78.5 ; HTN (hypertension) I10 ; Blindness and low vision H54.10 ; Major depressive disorder, recurrent, moderate F33.1 and Anxiety F41.9 [facility] [id number] [place] [address] 46206- 1281 Mar, [facility] [id number] [place] [address] 78770- 5864 Mar, Post-traumatic stress disorder, unspecified F43.10 and Major depressive disorder, recurrent, moderate F33.1 [facility] [id number] [place] [address] 22043- 7879 Mar, [facility] [id number] [place] [address] 25182- 9312 04 Mar, 2015 HTN (hypertension) I10 ; Blindness and low vision H54.10 ; Obesity E66.9 ; Hyperlipidemia E78.5 ; Glaucoma H40.9 ; Chronic pain G89.29 and CAD (coronary artery disease) I25.10 [facility] [id number] [place] [address] 51927- 0694 Feb, [facility] [id number] [place] [address] 23002- 6063 Feb, Post-traumatic stress disorder, unspecified F43.10 ; Obesity E66.9 ; Sleep apnea, obstructive G47.33 and Open-angle glaucoma of both eyes H40.10X0 [facility] [address] 20496- 9701 Feb, Post-traumatic stress disorder, unspecified F43.10 and Major depressive disorder, recurrent, moderate F33.1 [facility] [address] 97438- 2397 Feb, [facility] [address] 98103- 6816 Feb, [facility] [address] 13902- 0449 Feb, HTN (hypertension) I10 ; Post-traumatic stress disorder, unspecified F43.10 ; Blindness and low vision H54.10 ; Obesity E66.9 ; Hyperlipidemia E78.5 ; Chronic pain G89.29 ; Glaucoma H40.9 ; Mitral valve prolapse I34.1 and Bilateral headaches R51 [facility] [id number] [place] [address] 50728- 8883 Feb, [facility] [id number] [place] [address] 83754- 4659 Feb, Post-traumatic stress disorder, unspecified F43.10 and Major depressive disorder, recurrent, moderate F33.1 [facility] [id number] [place] [address] 80475- 3119 Feb, [facility] [address] 34991- 6309 Feb, [facility] [id number] [place] [address] 31100- 7271 Jan, [facility] [id number] [place] [address] 62904- 2533 Jan, [facility] [address] 052996- 6653 Jan, Obesity E66.9 ; HTN (hypertension) I10 ; Blindness and low vision H54.10 ; Major depressive disorder, recurrent, moderate F33.1 ; Glaucoma H40.9 ; Hyperlipidemia E78.5 ; Sleep apnea, obstructive G47.33 ; Chronic pain G89.29 ; Anxiety F41.9 ; Chronic tension headaches G44.229 and Cough R05 [facility] [id number] [place] [address] 87886- 8871 Jan, [address] 58208- 0047 Jan, [place] [id number] [place] [address] 21388- 6588 Jan, Post-traumatic stress disorder, unspecified F43.10 ; Obesity E66.9 ; Sleep apnea, obstructive G47.33 and Open-angle glaucoma of both eyes H40.10X0 [place] [id number] [place] [address] 645854- 0745 Jan, [facility] [id number] [place] [address] 56084- 9144 Jan, Post-traumatic stress disorder, unspecified F43.10 and Major depressive disorder, recurrent, moderate F33.1 [facility] [id number] [place] [address] 88824- 7474 Dec, [place] [id number] [place] [address] 75686- 0854 Dec, Sleep apnea, obstructive G47.33 ; Obesity E66.9 ; Hyperlipidemia E78.5 ; Glaucoma H40.9 ; Chronic pain G89.29 ; HTN (hypertension ) I10 ; Blindness and low vision H54.10 ; Anxiety F41.9 and CAD (coronary artery disease) I25.10 [place] [id number] [place] [address] 79328- 3801 Nov, [facility] [id number] [place] [address] 04625- 8601 Nov, [facility] [id number] [place] [address] 12743- 0573 Nov, [facility] [address] 02819- 0971 Nov, [facility] [id number] [place] [address] 40931- 0251 Nov, [facility] [address] 52231- 8266 Nov, Encounter for immunization Z23 ; Sleep apnea, obstructive G47.33 ; Obesity E66.9 ; Hyperlipidemia E78.5 ; Glaucoma H40.9 ; Chronic pain G89.29 ; Anxiety F41.9 ; Chronic tension headaches G44.229 and HTN (hypertension ) I10 [facility] [id number] [place] [address] 38338- 6644 Nov, [facility] [id number] [place] [address] 73617- 3235 Nov, [facility] [id number] [place] [address] 53555- 7462 Nov, Dizziness R42 [facility] [id number] [place] [address] 65207- 6281 Nov, [facility] [id number] [place] [address] 59820- 1225 Oct, [facility] [id number] [place] [address] 89947- 1326 28 Oct, 2014 [facility] [id number] [place] [address] 95457- 4718 Oct, [facility] [id number] [place] [address] 28143- 9815 Oct, [facility] [id number] [place] [address] 79465- 9930 Oct, Dizziness 780.4 ; Essential hypertension 401.9 ; Obesity 278.00 ; Hyperlipidemia 272.4 ; Chronic pain 338.29 ; Glaucoma 365.9 and Anxiety 300.00 [facility] [id number] [place] [address] 53440- 6298 Oct, Essential hypertension 401.9 ; Hyperlipidemia 272.4 ; Glaucoma 365.9 ; Obesity 278.00 ; Chronic pain 338.29 and Allergy to insects V15.06 [facility] [id number] [place] [address] 40520- 6788 Sep, [facility] [address] 31488- 8654 Sep, [facility] [id number] [place] [address] 82073- 4136 Sep, [facility] [id number] [place] [address] 53154- 5364 Sep, [facility] [id number] [place] [address] 59045- 2340 Aug, Essential hypertension 401.9 ; Obesity 278.00 [...] Psychotherapy, patient &/family, 45 minutes, established patient May 19, 2017 INSTRUCTIONS MEDICATIONS ADMINISTERED No Known Medications [...]
--- OUTSIDE RECORDS SUMMARY | 2018-02-04 14:55 | XMS REPORT ---
Author Author DALJIT DAMON Organization [facility] Address [address] [place] [address] Care Team Providers Care Assistant Chief Train Dispatcher Name Role Phone MARISOL DALJIT Unavailable PROBLEMS Type Condition ICD9-CM Code ZFC54-OC Code Onset Dates Condition Status SNOMED Code Problem Primary insomnia F51.01 Active 3195037 Problem Other male erectile dysfunction N52.8 Active 588388912 Problem Morbid (severe) obesity due to excess calories E66.01 Active 280013383 Problem Sarcoidosis D86.9 Active 93244354 Problem Blindness and low vision H54.10 Active 210865127 Problem Problems related to release from shelter Z65.2 Active [id number] Problem Myocarditis, unspecified chronicity, 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 Active 56483755 Problem Chronic pain G89.29 Active 49049517 Problem 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 Active 421295662 Problem Body mass index (BMI) of 40.0-44.9 in adult Z68.41 Active 981393188 Problem Chronic pain syndrome G89.4 Active 702670865 Problem Migraine without aura and without status migrainosus, not intractable G43.009 Active 800057938 Problem Anxiety F41.9 Active 23532315 Problem Major depressive disorder, recurrent, moderate F33.1 Active 89025907 Problem HTN (hypertension) I10 Active 17061372 Problem Chronic tension headaches G44.229 Active 523693108 Problem CAD (coronary artery disease) I25.10 Active 65673392 Problem Post-traumatic stress disorder, chronic F43.12 Active 234716713 Problem Hyperlipidemia E78.5 Active 79151721 Problem Open-angle glaucoma of both eyes H40.10X0 Active 96105387 Problem Environmental allergies Z91.09 Active 697748041 Problem Sleep apnea, obstructive G47.33 Active 55976198 Problem Mitral valve prolapse I34.1 Active 242585645 Problem Arrhythmia as indication for cardiac pacemaker replacement I49.9 Active 90832361 ALLERGIES No Information ENCOUNTERS Encounter Location Date Diagnosis [facility] [address] [address] Oct, [facility] [id number] [place] [address] 09977- 2466 Oct, [facility] [address], [place] [address] 0065 Sep, [facility] [id number] [place] [address] 26778- 7970 Sep, [facility] [id number] [place] [address] 37626- 5499 Sep, [facility] [id number] [place] [address] 81609- 8905 Aug, Post-traumatic stress disorder, unspecified F43.10 ; Major depressive disorder, recurrent, moderate F33.1 and Problems related to release from shelter Z65.2 [place] [id number] [place] [address] 85179- 5634 11 Aug, 2017 [facility] [id number] [place] [address] 23411- 3711 Aug, Left leg pain M79.605 [place] [id number] [place] [address] 06453- 4758 26 Jul, 2017 Post-traumatic stress disorder, chronic F43.12 ; Anxiety F41.9 ; Problems related to release from shelter Z65.2 and BMI 40.0-44.9, adult Z68.41 [facility] [address] [address] 28[address] Jul, HTN (hypertension) I10 ; Body mass index (BMI) of 40.0-44.9 in adult Z68.41 and Acute swimmer''s ear of both sides H60.333 [place] [address] [address] 2792 Jul, Glaucoma H40.9 [place] [id number] [place] [address] 72581- 1234 Jul, [facility] [id number] [place] [address] 45913- 3054 Jul, Sarcoidosis D86.9 [facility] [id number] [place] [address] 79887- 3104 Jul, Left leg pain M79.605 [facility] [address] 81314- 3497 Jul, Sarcoidosis D86.9 [facility] [id number] [place] [address] 98088- 9540 Jul, Post-traumatic stress disorder, unspecified F43.10 ; Major depressive disorder, recurrent, moderate F33.1 and Problems related to release from shelter Z65.2 [facility] [id number] [place] [address] 21221- 1877 June, [facility] [id number] [place] [address] 59780 -1911 June, Sore throat J02.9 and BMI 40.0-44.9, adult Z68.41 [facility] [id number] [place] [address] 31176- 4166 June, [facility] [id number] [place] [address] 77278- 4191 June, [facility] [id number] [place] [address] 90825- 2426 June, [facility] [id number] [place] [address] 47090- 2766 June, Left leg pain M79.605 [facility] [id number] [place] [address] 82011- 5450 June, Sarcoidosis D86.9 [facility] [id number] [address] 6362 June, [facility] [address], [place] [address] 7341 June, [facility] [id number] [place] [address] 34380- 5040 June, Left leg pain M79.605 [facility] [id number] [place] [address] 23019- 5684 May, [facility] [id number] [place] [address] 15921- 7608 May, [facility] [id number] [place] [address] 57199- 0957 May, [facility] [id number] [place] [address] 54476- 1602 May, Left leg pain M79.605 [facility] [id number] [place] [address] 93912- 6081 May, Post-traumatic stress disorder, unspecified F43.10 ; Major depressive disorder, recurrent, moderate F33.1 and Problems related to release from shelter Z65.2 [place] [id number] [place] [address] 37244- 3839 May, Chronic pain G89.29 ; Anxiety F41.9 ; Chest pain, unspecified type R07.9 and BMI 40.0-44.9, adult Z68.41 [place] [address] [place] [address] 40612- 9036 Apr, [facility] [id number] [place] [address] 06039- 4435 Apr, Left leg pain M79.605 [facility] [id number] [place] [address] 81274- 1330 Apr, Post-traumatic stress disorder, unspecified F43.10 ; Problems related to release from shelter Z65.2 ; Anxiety F41.9 and BMI 40.0-44.9 , adult Z68.41 [facility] [address] 48479- 6687 22 Apr, 2017 [place] [address] 07175- 2599 19 Apr, 2017 Left leg pain M79.605 [place] [address] 98232- 2700 13 Apr, 2017 Post-traumatic stress disorder, unspecified F43.10 ; Major depressive disorder, recurrent, moderate F33.1 and Problems related to release from shelter Z65.2 [place] [address] 93322- 5667 12 Apr, 2017 [place] [address] 31037- 0417 12 Apr, 2017 Chronic pain G89.29 ; 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 ; Morbid (severe) obesity due to excess calories E66.01 ; Anxiety F41.9 and BMI 40.0-44.9, adult Z68.41 [facility] [place] [address] 00849 -9533 10 Apr, 2017 Sore throat J02.9 and BMI 40.0-44.9, adult Z68.41 [place] [address] 62639- 0425 02 Apr, 2017 Left leg pain M79.605 [facility] [address] [id number] Mar, Dental examination Z01.20 [place] [address] 16394- 5357 Mar, [facility] [address] 58083 -4260 20 Mar, 2017 Cough R05 ; Viral gastroenteritis A08.4 and BMI 40.0-44.9, adult Z68.41 [place] [address] 94503- 2567 19 Mar, 2017 Left leg pain M79.605 [place] [id number] [place] [address] 27889- 1546 Mar, Post-traumatic stress disorder, unspecified F43.10 ; Major depressive disorder, recurrent, moderate F33.1 and Problems related to release from shelter Z65.2 [place] [id number] [place] [address] 08335- 0172 Feb, Left leg pain M79.605 [place] [id number] [place] [address] 55729- 9262 Feb, [place] [id number] [place] [address] 36692- 1375 Feb, BMI 40.0-44.9, adult Z68.41 ; Chronic pain syndrome G89.4 ; Migraine without aura and without status migrainosus, not intractable G43.009 ; Mitral valve prolapse I34.1 and 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 [place] [id number] [place] [address] 56045- 6980 Feb, Post-traumatic stress disorder, chronic F43.12 ; Anxiety F41.9 ; Problems related to release from shelter Z65.2 and BMI 40.0-44.9, adult Z68.41 [place] [id number] [place] [address] 34182- 3825 Feb, Post-traumatic stress disorder, unspecified F43.10 ; Major depressive disorder, recurrent, moderate F33.1 and Problems related to release from shelter Z65.2 [place] [id number] [place] [address] 63326- 1731 Feb, Left leg pain M79.605 [place] [id number] [place] [address] 38689- 3311 Jan, Post-traumatic stress disorder, unspecified F43.10 ; Major depressive disorder, recurrent, moderate F33.1 and Problems related to release from shelter Z65.2 [place] [id number] [place] [address] 46335- 7697 Jan, [facility] [address], [place] [address]- 1489 Jan, [facility] [id number] [place] [address] 64491- 7176 Jan, Anxiety F41.9 [facility] [address], [place] [address]- 1778 Jan, Left leg pain M79.605 [facility] [id number] [place] [address] 64050- 5349 Dec, Left leg pain M79.605 [facility] [id number] [place] [address] 19086- 1509 Dec, [facility] [address] [place] [address] 41246- 3538 Dec, Post-traumatic stress disorder, unspecified F43.10 ; Major depressive disorder, recurrent, moderate F33.1 and Problems related to release from shelter Z65.2 [facility] [address], [place] [address]- 3971 31 Nov, 2016 Chronic pain G89.29 and Anxiety F41.9 [facility] [address], [place] [address]- 3344 24 Nov, 2016 Chronic pain G89.29 and Anxiety F41.9 [place] [address], [place] [address]- 8637 16 Nov, 2016 Post-traumatic stress disorder, unspecified F43.10 ; Major depressive disorder, recurrent, moderate F33.1 and Problems related to release from shelter Z65.2 [place] [address], [place] [address]- 5425 09 Nov, 2016 Other abnormal findings in specimens from other organs, systems and tissues R89.8 ; Other male erectile dysfunction N52.8 ; Body mass index (BMI) of 40.0-44.9 in adult Z68.41 and Morbid (severe) obesity due to excess calories E66.01 [place] [address] [address]- 8461 02 Nov, 2016 Post-traumatic stress disorder, unspecified F43.10 ; Major depressive disorder, recurrent, moderate F33.1 and Problems related to release from shelter Z65.2 [facility] [id number] [place] [address] [id number] 29 Oct, 2016 Dental examination Z01.20 [place] [id number] [place] [address] 11792- 7307 Oct, [place] [id number] [place] [address] 78496- 7095 Oct, Encounter for immunization Z23 [place] [id number] [place] [address] 56254- 8980 Oct, Chronic pain G89.29 ; Anxiety F41.9 ; Arrhythmia as indication for cardiac pacemaker replacement I49.9 and Glaucoma H40.9 [place] [id number] [place] [address] 77794- 8328 Oct, Anxiety F41.9 ; Post-traumatic stress disorder, chronic F43.12 and Problems related to release from shelter Z65.2 [place] [address] [place] [address] 56290- 5473 Oct, Post-traumatic stress disorder, unspecified F43.10 ; Major depressive disorder, recurrent, moderate F33.1 and Problems related to release from shelter Z65.2 [facility] [address] [place] [address] 15333- 8477 Sep, Chronic pain G89.29 and Anxiety F41.9 [place] [id number] [place] [address] 70303- 2587 Sep, Post-traumatic stress disorder, unspecified F43.10 ; Major depressive disorder, recurrent, moderate F33.1 and Problems related to release from shelter Z65.2 [place] [id number] [place] [address] 95865- 7671 Sep, Post-traumatic stress disorder, unspecified F43.10 ; Major depressive disorder, recurrent, moderate F33.1 and Problems related to release from shelter Z65.2 [place] [address], [place] [address]- 4360 Sep, Chronic pain G89.29 [place] [address], [place] [address]- 9411 Aug, Dental caries, unspecified K02.9 [facility] [id number], [place] [address]- 6710 Aug, Sleep apnea, obstructive G47.33 ; Obesity E66.9 ; Chronic pain G89.29 ; HTN (hypertension) I10 ; Major depressive disorder, recurrent, moderate F33.1 ; Anxiety F41.9 ; Chronic tension headaches G44.229 ; Mitral valve prolapse I34.1 ; Arrhythmia as indication for cardiac pacemaker replacement I49.9 ; Dental caries, unspecified K02.9 ; Primary insomnia F51.01 and Hyperlipidemia E78.5 [place] [address] [place] [address] 99657- 6990 Aug, Post-traumatic stress disorder, unspecified F43.10 ; Major depressive disorder, recurrent, moderate F33.1 and Problems related to release from shelter Z65.2 [place] [address], [place] [address]- 5013 Aug, Dental examination Z01.20 [facility] [id number] [place] [address] [id number] Aug, Dental examination Z01.20 [facility] [address], [place] [address]- 1893 Aug, Post-traumatic stress disorder, unspecified F43.10 ; Major depressive disorder, recurrent, moderate F33.1 and Problems related to release from shelter Z65.2 [place] [address], [place] [address]- 4996 Aug, Chronic pain G89.29 and Primary insomnia F51.01 [place] [address] [place] [address] 55889- 5534 Jul, [place] [id number] [place] [address] 00309- 2417 Jul, [place] [id number] [place] [address] 86008- 9049 Jul, Nausea R11.0 [place] [id number] [place] [address] 06427- 8179 Jul, Arrhythmia as indication for cardiac pacemaker replacement I49.9 [facility] [id number] [place] [address] 46917- 4605 Jul, Post-traumatic stress disorder, unspecified F43.10 ; Major depressive disorder, recurrent, moderate F33.1 and Problems related to release from shelter Z65.2 [place] [id number] [place] [address] 84508- 6464 Jul, Anxiety F41.9 [facility] [id number] [place] [address] 98319- 3787 08 Jul, 2016 Chronic pain G89.29 [place] [id number] [place] [address] 95204- 9639 02 Jul, 2016 Sleep apnea, obstructive G47.33 ; Hyperlipidemia E78.5 ; Chronic pain G89.29 ; Blindness and low vision H54.10 ; Major depressive disorder, recurrent, moderate F33.1 ; Anxiety F41.9 ; Mitral valve prolapse I34.1 ; Arrhythmia as indication for cardiac pacemaker replacement I49.9 ; Primary insomnia F51.01 ; Bilateral headaches R51 and Environmental allergies Z91.09 [place] [id number] [place] [address] 55307- 1566 Jul, Post-traumatic stress disorder, unspecified F43.10 ; Major depressive disorder, recurrent, moderate F33.1 and Problems related to release from shelter Z65.2 [place] [id number] [place] [address] 40217- 0774 June, Post-traumatic stress disorder, chronic F43.12 ; Anxiety F41.9 ; Problems related to release from shelter Z65.2 ; Sleep apnea, obstructive G47.33 and Primary insomnia F51.01 [place] [address] [address]- 2222 June, [facility] [id number] [place] [address] 46699- 0056 June, [facility] [id number] [place] [address] 67516- 0518 June, [place] [id number] [place] [address] 20864- 0265 June, Chronic pain G89.29 [place] [id number] [place] [address] 23044- 4550 June, Chronic pain G89.29 [place] [id number] [place] [address] 31762- 7257 June, Lipoma of left lower extremity D17.24 ; Open wound T14.8 and Swelling of left lower extremity M79.89 [place] [address] [place] [address] 34388- 8732 June, Post-traumatic stress disorder, unspecified F43.10 ; Major depressive disorder, recurrent, moderate F33.1 and Problems related to release from shelter Z65.2 [place] [address], [place] [address]- 0118 May, Lipoma of left lower extremity D17.24 ; Major depressive disorder, recurrent, moderate F33.1 ; Sleep apnea, obstructive G47.33 ; Hyperlipidemia E78.5 ; Obesity E66.9 ; HTN (hypertension) I10 ; Glaucoma H40.9 ; CAD (coronary artery disease) I25.10 ; Chronic tension headaches G44.229 ; Chronic pain G89.29 ; Anxiety F41.9 ; Nausea R11.0 and Primary insomnia F51.01 [place] [address] [place] [address] 90669- 0583 May, [place] [address] [place] [address] 50591- 1571 May, Chronic pain G89.29 [place] [id number] [place] [address] 19684- 9259 May, [place] [id number] [place] [address] 02860- 5501 31 Apr, 2016 Post-traumatic stress disorder, unspecified F43.10 ; Major depressive disorder, recurrent, moderate F33.1 and Problems related to release from shelter Z65.2 [place] [id number] [place] [address] 01270- 7511 28 Apr, 2016 Primary insomnia F51.01 ; Post-traumatic stress disorder, chronic F43.12 and Problems related to release from shelter Z65.2 [place] [id number] [place] [address] 69576- 9398 17 Apr, 2016 Post-traumatic stress disorder, unspecified F43.10 ; Major depressive disorder, recurrent, moderate F33.1 and Problems related to release from shelter Z65.2 [place] [id number] [place] [address] 79307- 5239 16 Apr, 2016 [place] [id number] [place] [address] 97580- 9315 16 Apr, 2016 Sleep apnea, obstructive G47.33 ; Chronic pain G89.29 ; HTN (hypertension) I10 ; Mitral valve prolapse I34.1 ; Shoulder pain, left M25.512 ; Arrhythmia as indication for cardiac pacemaker replacement I49.9 ; Glaucoma H40.9 ; Bilateral headaches R51 ; Environmental allergies Z91.09 ; Primary insomnia F51.01 and Nausea R11.0 [place] [id number] [place] [address] 96047- 3561 15 Apr, 2016 [place] [id number] [place] [address] 68733- 2339 Apr, [place] [address] [address]- 7604 Apr, Post-traumatic stress disorder, unspecified F43.10 ; Major depressive disorder, recurrent, moderate F33.1 and Problems related to release from shelter Z65.2 [place] [id number] [place] [address] 52593- 3128 Apr, HTN (hypertension) I10 [place] [id number] [place] [address] 74371- 7588 Apr, HTN (hypertension) I10 [place] [id number] [place] [address] 83670- 3037 Mar, Chronic pain G89.29 ; Primary insomnia F51.01 and Problems related to release from shelter Z65.2 [place] [id number] [place] [address] 09383- 2077 Mar, Post-traumatic stress disorder, unspecified F43.10 ; Major depressive disorder, recurrent, moderate F33.1 and Problems related to release from shelter Z65.2 [place] [id number] [place] [address] 18602- 2244 Feb, Post-traumatic stress disorder, unspecified F43.10 ; Major depressive disorder, recurrent, moderate F33.1 and Problems related to release from shelter Z65.2 [place] [address] [place] [address] 16656- 7925 Feb, Chronic tension headaches G44.229 [place] [id number] [place] [address] 71389- 8070 Feb, Sleep apnea, obstructive G47.33 ; Obesity [...] pacemaker replacement I49.9 and Primary insomnia F51.01 [facility] [id number] [place] [address] 88385- 8650 17 Feb, 2016 Post-traumatic stress disorder, unspecified F43.10 and Chronic pain G89.29 [facility] [id number] [place] [address] 35920- 3020 13 Feb, 2016 [facility] [id number] [place] [address] [id number] Feb, Dental caries K02.9 [facility] [id number] [place] [address] 15036- 2429 Feb, [place] [id number] [place] [address] 00547- 9598 Feb, Post-traumatic stress disorder, unspecified F43.10 ; Major depressive disorder, recurrent, moderate F33.1 and Problems related to release from shelter Z65.2 [place] [id number] [place] [address] 48415- 1301 20 Jan, 2016 Sleep apnea, obstructive G47.33 and Chronic pain G89.29 [place] [id number] [place] [address] 06819- 5666 Jan, [place] [id number] [place] [address] 46160- 6486 Jan, Dental examination Z01.20 [facility] [id number] [place] [address] [phone] Jan, [facility] [id number] [place] [address] [phone] Jan, [place] [id number] [place] [address] [phone] Dec, Post-traumatic stress disorder, unspecified F43.10 ; Major depressive disorder, recurrent, moderate F33.1 and Problems related to release from shelter Z65.2 [facility] [id number] [place] [address] [phone] Dec, Encounter for immunization Z23 ; Problems related to release from shelter Z65.2 ; Sleep apnea, obstructive G47.33 and Post-traumatic stress disorder, chronic F43.12 [place] [id number] [place] [address] [phone] [phone] Dec, Sleep apnea, obstructive G47.33 ; Hyperlipidemia E78.5 ; Chronic pain G89.29 ; Glaucoma H40.9 ; HTN (hypertension) I10 ; Post-traumatic stress disorder, unspecified F43.10 ; Anxiety F41.9 ; Chronic tension headaches G44.229 ; Mitral valve prolapse I34.1 and CAD (coronary artery disease) I25.10 [facility] [id number] [place] [address] 69732- 4331 Dec, Post-traumatic stress disorder, unspecified F43.10 ; Major depressive disorder, recurrent, moderate F33.1 and Problems related to release from shelter Z65.2 [facility] [id number] [place] [address] 08319- 6222 Nov, Chronic pain G89.29 [facility] [id number] [place] [address] 86878- 4864 Nov, Post-traumatic stress disorder, unspecified F43.10 ; Major depressive disorder, recurrent, moderate F33.1 and Problems related to release from shelter Z65.2 [facility] [id number] [place] [address] 96814- 1541 Oct, [facility] [id number] [place] [address] 28688- 9767 Oct, [facility] [id number] [place] [address] 43652- 4404 16 Oct, 2015 Post-traumatic stress disorder, unspecified F43.10 ; Major depressive disorder, recurrent, moderate F33.1 and Problems related to release from shelter Z65.2 [facility] [id number] [place] [address] 33538- 6745 Oct, [facility] [id number] [place] [address] 75754- 7706 Oct, Environmental allergies Z91.09 ; Cough R05 and Open-angle glaucoma of both eyes H40.10X0 [facility] [id number] [place] [address] 53942- 7154 Sep, [facility] [id number] [place] [address] 79569- 0349 Sep, Post-traumatic stress disorder, unspecified F43.10 ; Major depressive disorder, recurrent, moderate F33.1 and Problems related to release from shelter Z65.2 [facility] [id number] [place] [address] 88883- 5962 Sep, Chronic pain G89.29 [facility] [id number] [place] [address] 42677- 5409 Sep, Pain in left shoulder M25.512 ; Pain in right shoulder M25.511 and Other chronic pain G89.29 [facility] [id number] [place] [address] 53616- 2115 Sep, [facility] [id number] [place] [address] 26574- 5716 Sep, [facility] [id number] [place] [address] 68026- 5443 Sep, [facility] [id number] [place] [address] [id number] Aug, Dental examination Z01.20 [facility] [id number] [place] [address] 88760- 9294 Aug, Post-traumatic stress disorder, unspecified F43.10 ; Open- angle glaucoma of both eyes H40.10X0 and Problems related to release from shelter Z65.2 [facility] [address] [address] 387[address] Aug, [facility] [id number] [place] [address] 86158- 5292 Aug, Sleep apnea, obstructive G47.33 ; Obesity E66.9 ; Hyperlipidemia E78.5 ; Bilateral headaches R51 ; HTN (hypertension) I10 ; Post- traumatic stress disorder, unspecified F43.10 ; Anxiety F41.9 ; Neuropathy G62.9 ; Glaucoma H40.9 and Chronic pain G89.29 [facility] [id number] [id number] Aug, Encounter for dental examination Z01.20 [facility] [id number] [place] [address] 22479- 7054 Aug, Post-traumatic stress disorder, unspecified F43.10 ; Major depressive disorder, recurrent, moderate F33.1 and Problems related to release from shelter Z65.2 [facility] [id number] [place] [address] 28387- 1343 Aug, [facility] [id number] [place] [address] 35482- 5047 Jul, [facility] [id number] [place] [address] 36280- 2050 Jul, Post-traumatic stress disorder, unspecified F43.10 and Major depressive disorder, recurrent, moderate F33.1 [facility] [address] [address] 2[address] Jul, [facility] [id number] [address] Jul, [facility] [id number] [place] [address] 23754- 9001 Jul, Chronic pain G89.29 [facility] [id number] [place] [address] 61851- 3653 June, Post-traumatic stress disorder, unspecified F43.10 and Major depressive disorder, recurrent, moderate F33.1 [facility] [address] [address]- 1608 June, [facility] [id number] [place] [address] 89471- 5399 June, Chronic pain G89.29 [facility] [id number] [place] [address] 16883- 3714 June, Post-traumatic stress disorder, unspecified F43.10 and Major depressive disorder, recurrent, moderate F33.1 [facility] [id number] [place] [address] 76931- 9845 May, Post-traumatic stress disorder, unspecified F43.10 and Major depressive disorder, recurrent, moderate F33.1 [facility] [id number] [place] [address] 63459- 9431 May, [facility] [id number] [place] [address] 51138- 9097 May, [facility] [id number] [place] [address] 62328- 9640 May, [facility] [id number] [place] [address] 27147- 2732 Apr, [facility] [id number] [place] [address] 51391- 8268 Apr, Post-traumatic stress disorder, unspecified F43.10 and Sleep apnea, obstructive G47.33 [facility] [id number] [place] [address] 58081- 8344 Apr, [facility] [id number] [place] [address] 93801- 9018 Apr, Shoulder pain, left M25.512 [facility] [id number] [place] [address] 98790- 8375 Apr, Post-traumatic stress disorder, unspecified F43.10 and Major depressive disorder, recurrent, moderate F33.1 [facility] [id number] [place] [address] 49225- 2573 Apr, [facility] [id number] [place] [id number]- [address]46 Apr, [facility] [address] [address]- 1689 Apr, [facility] [id number] [place] [address] 42679- 8829 Apr, Left shoulder pain M25.512 [facility] [id number] [place] [address] 66049- 8951 Mar, [facility] [id number] [place] [address] 93795- 9450 Mar, [facility] [id number] [place] [address] 76039- 3169 Mar, [facility] [id number] [place] [address] 97411- 9859 Mar, Sleep apnea, obstructive G47.33 ; Obesity E66.9 ; Chronic pain G89.29 ; Hyperlipidemia E78.5 ; HTN (hypertension) I10 ; Blindness and low vision H54.10 ; Major depressive disorder, recurrent, moderate F33.1 and Anxiety F41.9 [facility] [id number] [place] [address] 34803- 3235 Mar, [facility] [id number] [place] [address] 72298- 2851 Mar, Post-traumatic stress disorder, unspecified F43.10 and Major depressive disorder, recurrent, moderate F33.1 [facility] [id number] [place] [address] 79453- 4602 Mar, [facility] [id number] [place] [address] 32278- 6637 04 Mar, 2015 HTN (hypertension) I10 ; Blindness and low vision H54.10 ; Obesity E66.9 ; Hyperlipidemia E78.5 ; Glaucoma H40.9 ; Chronic pain G89.29 and CAD (coronary artery disease) I25.10 [facility] [id number] [place] [address] 38070- 1063 Feb, [facility] [id number] [place] [address] 72381- 6782 Feb, Post-traumatic stress disorder, unspecified F43.10 ; Obesity E66.9 ; Sleep apnea, obstructive G47.33 and Open-angle glaucoma of both eyes H40.10X0 [facility] [id number] [place] [address] 37656- 2878 Feb, Post-traumatic stress disorder, unspecified F43.10 and Major depressive disorder, recurrent, moderate F33.1 [facility] [id number] [place] [address] 48450- 0765 Feb, [facility] [id number] [place] [address] 63214- 3536 Feb, [facility] [id number] [place] [address] 92736- 7737 Feb, HTN (hypertension) I10 ; Post-traumatic stress disorder, unspecified F43.10 ; Blindness and low vision H54.10 ; Obesity E66.9 ; Hyperlipidemia E78.5 ; Chronic pain G89.29 ; Glaucoma H40.9 ; Mitral valve prolapse I34.1 and Bilateral headaches R51 [facility] [id number] [place] [address] 59278- 6541 Feb, [facility] [id number] [place] [address] 80316- 0267 Feb, Post-traumatic stress disorder, unspecified F43.10 and Major depressive disorder, recurrent, moderate F33.1 [facility] [id number] [place] [address] 64949- 9095 Feb, [facility] [id number] [place] [address] 18993- 7065 Feb, [facility] [id number] [place] [address] 27766- 4602 Jan, [facility] [id number] [place] [address] 34020- 9367 Jan, [facility] [id number] [place] [address] 18574- 7867 Jan, Obesity E66.9 ; HTN (hypertension) I10 ; Blindness and low vision H54.10 ; Major depressive disorder, recurrent, moderate F33.1 ; Glaucoma H40.9 ; Hyperlipidemia E78.5 ; Sleep apnea, obstructive G47.33 ; Chronic pain G89.29 ; Anxiety F41.9 ; Chronic tension headaches G44.229 and Cough R05 [facility] [id number] [place] [address] 82613- 2707 Jan, [address] 8[address]08- 5089 Jan, [address] 10697- 3624 Jan, Post-traumatic stress disorder, unspecified F43.10 ; Obesity E66.9 ; Sleep apnea, obstructive G47.33 and Open-angle glaucoma of both eyes H40.10X0 [address] 11155- 2443 Jan, [facility] [id number] [place] [address] 08794- 1235 Jan, Post-traumatic stress disorder, unspecified F43.10 and Major depressive disorder, recurrent, moderate F33.1 [facility] [id number] [place] [address] 24514- 2290 Dec, [facility] [id number] [place] [address] 31567- 3492 Dec, Sleep apnea, obstructive G47.33 ; Obesity E66.9 ; Hyperlipidemia E78.5 ; Glaucoma H40.9 ; Chronic pain G89.29 ; HTN (hypertension ) I10 ; Blindness and low vision H54.10 ; Anxiety F41.9 and CAD (coronary artery disease) I25.10 [address] [place] [address]- 7798 Nov, [facility] [id number] [place] [address] 70394- 1476 Nov, [facility] [id number] [place] [address] 65680- 9412 Nov, [facility] [id number] [place] [address] 72388- 9503 Nov, [facility] [id number] [place] [address] 97454- 0448 Nov, [facility] [address] 40027- 0097 Nov, Encounter for immunization Z23 ; Sleep apnea, obstructive G47.33 ; Obesity E66.9 ; Hyperlipidemia E78.5 ; Glaucoma H40.9 ; Chronic pain G89.29 ; Anxiety F41.9 ; Chronic tension headaches G44.229 and HTN (hypertension ) I10 [facility] [id number] [place] [address] 80301- 9469 Nov, [facility] [id number] [place] [address] 26396- 8928 Nov, [facility] [id number] [place] [address] 65772- 8224 06 Nov, 2014 Dizziness R42 [facility] [id number] [place] [address] 98172- 4968 Nov, [facility] [id number] [place] [address] 37341- 6555 29 Oct, 2014 [facility] [id number] [place] [address] 73828- 5785 28 Oct, 2014 [facility] [id number] [place] [address] 05067- 0647 Oct, [facility] [id number] [place] [address] 48328- 5173 Oct, [facility] [address] [address]- 0726 Oct, Dizziness 780.4 ; Essential hypertension 401.9 ; Obesity 278.00 ; Hyperlipidemia 272.4 ; Chronic pain 338.29 ; Glaucoma 365.9 and Anxiety 300.00 [facility] [id number] [place] [address] 24625- 1447 Oct, Essential hypertension 401.9 ; Hyperlipidemia 272.4 ; Glaucoma 365.9 ; Obesity 278.00 ; Chronic pain 338.29 and Allergy to insects V15.06 [facility] [id number] [place] [address] 39095- 2196 Sep, [facility] [address] 12423- 8509 Sep, [facility] [address] 15867- 6235 Sep, [facility] [id number] [place] [address] 63951- 8584 Sep, [facility] [id number] [place] [address] 57211- 4501 Aug, Essential hypertension 401.9 ; Obesity 278.00 ; Hyperlipidemia 272.4 ; Glaucoma 365.9 ; Lipoma 214.9 ; Mitral valve prolapse 424.0 ; Angina at rest 413.9 ; Lymphedema 457.1 and Chronic pain 338.29 IMMUNIZATIONS No Known Immunizations SOCIAL HISTORY Never Assessed REASON FOR VISIT f/Lamar SORIANO PLAN OF CARE Activity Details Follow Up 3 Months Reason: VITAL SIGNS Height 67 in 2017-05-04 Weight 271.3 lbs 2017-05-04 Heart Rate 82 bpm 2017-05-04 Respiratory Rate 20 2017-05-04 BMI 42.49 kg/m2 2017-05-04 Blood pressure systolic 130 mmHg 2017-05-04 Blood pressure diastolic 82 mmHg 2017-05-04 MEDICATIONS Medication Instructions Dosage Frequency Start Date End Date Duration Status Gabapentin 300 MG TAKE ONE CAPSULE BY MOUTH TWICE DAILY 90 Active Cartia XT 300 MG Orally Once a day 1 capsule 24h 90 days Active Atorvastatin Calcium 20 MG TAKE ONE TABLET BY MOUTH ONCE DAILY 90 Active Nitrostat 0.4 MG Sublingual every 5 minutes x 3 PRN 1 tablet 30 days Active Xanax 1 MG Orally Twice a day for anxiety 1 tablet Active Timolol Hemihydrate 0.5 % Ophthalmic 2 times a day 1 drop into both eyes 12h 20 Dec, 2014 Active EPINEPHrine HCl 0.3 mg as directed Oct, 30 days Active Zofran ODT 4 MG Orally every 8 hrs prn 1 tablet on the tongue and allow to dissolve 10 Not-Taking Hydrocodone-Acetaminophen 7.5-325 MG Orally 4 times a day 1 tablet 6h Apr, 28 days Active Metoprolol Succinate ER 200 mg Orally Once a day 1 tablet 24h 90 days Active Oxycodone HCl 10 mg Orally 2 times a day 1 tablet as needed 12h Apr, May, 30 days Active Topamax 100 MG TAKE [...]
--- OUTSIDE RECORDS SUMMARY | 2018-02-04 14:56 | XMS REPORT ---
Author Author ALENA ÁLVAREZ Organization [facility] Address [address] [place] [address] Care Team Providers Care Closing Coordinator Name Role Phone ALENA ÁLVAREZ Unavailable PROBLEMS Type Condition ICD9-CM Code PYC28-BT Code Onset Dates Condition Status SNOMED Code Problem Primary insomnia F51.01 Active 7409712 Problem Other male erectile dysfunction N52.8 Active 981815812 Problem Morbid (severe) obesity due to excess calories E66.01 Active 354062872 Problem Sarcoidosis D86.9 Active 73479788 Problem Blindness and low vision H54.10 Active 838231087 Problem Problems related to release from fpc Z65.2 Active 291348068636221 Problem Myocarditis, unspecified chronicity, 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 Active 73353574 Problem Chronic pain G89.29 Active 51100138 Problem 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 Active 217388246 Problem Body mass index (BMI) of 40.0-44.9 in adult Z68.41 Active 321368135 Problem Chronic pain syndrome G89.4 Active 993563504 Problem Migraine without aura and without status migrainosus, not intractable G43.009 Active 190505214 Problem Anxiety F41.9 Active 83389732 Problem Major depressive disorder, recurrent, moderate F33.1 Active 68269399 Problem HTN (hypertension) I10 Active 60955101 Problem Chronic tension headaches G44.229 Active 568049718 Problem CAD (coronary artery disease) I25.10 Active 21224716 Problem Post-traumatic stress disorder, chronic F43.12 Active 261830877 Problem Hyperlipidemia E78.5 Active 20325581 Problem Open-angle glaucoma of both eyes H40.10X0 Active 48621436 Problem Environmental allergies Z91.09 Active 131997724 Problem Sleep apnea, obstructive G47.33 Active 69738027 Problem Mitral valve prolapse I34.1 Active 540940848 Problem Arrhythmia as indication for cardiac pacemaker replacement I49.9 Active 40479616 ALLERGIES No Information ENCOUNTERS Encounter Location Date Diagnosis [facility] [address] [address] Oct, [facility] [id number] [place] [address] 32577- 5782 Oct, [facility] [address] [address] Sep, [facility] [id number] [place] [address] 22400- 8074 Sep, [facility] [id number] [place] [address] 43216- 6718 Sep, [facility] [id number] [place] [address] 91374- 8510 Aug, Post-traumatic stress disorder, unspecified F43.10 ; Major depressive disorder, recurrent, moderate F33.1 and Problems related to release from fpc Z65.2 [place] [id number] [place] [address] 20577- 5846 11 Aug, 2017 [facility] [id number] [place] [address] 24949- 9531 Aug, Left leg pain M79.605 [place] [id number] [place] [address] 83382- 2934 26 Jul, 2017 Post-traumatic stress disorder, chronic F43.12 ; Anxiety F41.9 ; Problems related to release from fpc Z65.2 and BMI 40.0-44.9, adult Z68.41 [facility] [address] [address] Jul, HTN (hypertension) I10 ; Body mass index (BMI) of 40.0-44.9 in adult Z68.41 and Acute swimmer''s ear of both sides H60.333 [place] [address] [address] 24[address] Jul, Glaucoma H40.9 [place] [id number] [place] [address] 41485- 5086 Jul, [facility] [id number] [place] [address] 74793- 5158 Jul, Sarcoidosis D86.9 [facility] [id number] [place] [address] 51816- 4808 Jul, Left leg pain M79.605 [facility] [address] 17687- 8180 Jul, Sarcoidosis D86.9 [facility] [id number] [place] [address] 89870- 5345 Jul, Post-traumatic stress disorder, unspecified F43.10 ; Major depressive disorder, recurrent, moderate F33.1 and Problems related to release from fpc Z65.2 [facility] [id number] [place] [address] 91202- 2677 June, [facility] [id number] [place] [address] 56073 -4722 June, Sore throat J02.9 and BMI 40.0-44.9, adult Z68.41 [facility] [id number] [place] [address] 95005- 9039 June, [facility] [id number] [place] [address] 20614- 8791 June, [facility] [id number] [place] [address] 13774- 6533 June, [facility] [id number] [place] [address] 79277- 0212 June, Left leg pain M79.605 [facility] [id number] [place] [address] 96840- 8552 June, Sarcoidosis D86.9 [facility] [id number] [address] 0777 June, [facility] [address] [address] 6698 June, [facility] [id number] [place] [address] 35744- 5548 June, Left leg pain M79.605 [facility] [id number] [place] [address] 04112- 3910 May, [facility] [id number] [place] [address] 67539- 6171 May, [facility] [id number] [place] [address] 29913- 2878 May, [facility] [id number] [place] [address] 35102- 7841 May, Left leg pain M79.605 [facility] [id number] [place] [address] 08957- 2441 May, Post-traumatic stress disorder, unspecified F43.10 ; Major depressive disorder, recurrent, moderate F33.1 and Problems related to release from fpc Z65.2 [place] [id number] [place] [address] 50746- 6581 May, Chronic pain G89.29 ; Anxiety F41.9 ; Chest pain, unspecified type R07.9 and BMI 40.0-44.9, adult Z68.41 [place] [address] [place] [address] 44689- 3022 Apr, [facility] [address] [place] [address] 26103- 3702 Apr, Left leg pain M79.605 [facility] [id number] [place] [address] 85638- 4319 Apr, Post-traumatic stress disorder, unspecified F43.10 ; Problems related to release from fpc Z65.2 ; Anxiety F41.9 and BMI 40.0-44.9 , adult Z68.41 [facility] [address] 01409- 4357 22 Apr, 2017 [place] [address] 95607- 2003 19 Apr, 2017 Left leg pain M79.605 [place] [address] 01068- 4723 13 Apr, 2017 Post-traumatic stress disorder, unspecified F43.10 ; Major depressive disorder, recurrent, moderate F33.1 and Problems related to release from fpc Z65.2 [place] [address] 99137- 4930 12 Apr, 2017 [place] [address] 72587- 8079 12 Apr, 2017 Chronic pain G89.29 ; 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 ; Morbid (severe) obesity due to excess calories E66.01 ; Anxiety F41.9 and BMI 40.0-44.9, adult Z68.41 [facility] [place] [address] 60652 -3054 10 Apr, 2017 Sore throat J02.9 and BMI 40.0-44.9, adult Z68.41 [place] [address] 51620- 2165 02 Apr, 2017 Left leg pain M79.605 [facility] [address] [id number] Mar, Dental examination Z01.20 [place] [address] 17448- 8519 Mar, [facility] [address] 45415 -0028 20 Mar, 2017 Cough R05 ; Viral gastroenteritis A08.4 and BMI 40.0-44.9, adult Z68.41 [place] [address] 99939- 6989 19 Mar, 2017 Left leg pain M79.605 [place] [id number] [place] [address] 49584- 6477 Mar, Post-traumatic stress disorder, unspecified F43.10 ; Major depressive disorder, recurrent, moderate F33.1 and Problems related to release from fpc Z65.2 [place] [id number] [place] [address] 02717- 2746 Feb, Left leg pain M79.605 [facility] [id number] [place] [address] 78030- 1076 Feb, [place] [id number] [place] [address] 46112- 7795 Feb, BMI 40.0-44.9, adult Z68.41 ; Chronic pain syndrome G89.4 ; Migraine without aura and without status migrainosus, not intractable G43.009 ; Mitral valve prolapse I34.1 and 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 [place] [id number] [place] [address] 55870- 7283 Feb, Post-traumatic stress disorder, chronic F43.12 ; Anxiety F41.9 ; Problems related to release from fpc Z65.2 and BMI 40.0-44.9, adult Z68.41 [facility] [place] [id number] [place] [address] 77752- 1289 Feb, Post-traumatic stress disorder, unspecified F43.10 ; Major depressive disorder, recurrent, moderate F33.1 and Problems related to release from fpc Z65.2 [place] [id number] [place] [address] 88421- 2588 Feb, Left leg pain M79.605 [place] [id number] [place] [address] 36387- 3582 Jan, Post-traumatic stress disorder, unspecified F43.10 ; Major depressive disorder, recurrent, moderate F33.1 and Problems related to release from fpc Z65.2 [place] [id number] [place] [address] 62145- 1426 Jan, [facility] [address] [address]- 6951 Jan, [facility] [id number] [place] [address] 48809- 7226 Jan, Anxiety F41.9 [facility] [address] [address]- 6331 Jan, Left leg pain M79.605 [facility] [id number] [place] [address] 79448- 7110 Dec, Left leg pain M79.605 [facility] [id number] [place] [address] 17409- 9077 Dec, [facility] [id number] [place] [address] 81826- 0781 Dec, Post-traumatic stress disorder, unspecified F43.10 ; Major depressive disorder, recurrent, moderate F33.1 and Problems related to release from fpc Z65.2 [facility] [address] [address]- 2418 31 Nov, 2016 Chronic pain G89.29 and Anxiety F41.9 [facility] [address] [address]- 3396 24 Nov, 2016 Chronic pain G89.29 and Anxiety F41.9 [place] [address] [address]- 6560 16 Nov, 2016 Post-traumatic stress disorder, unspecified F43.10 ; Major depressive disorder, recurrent, moderate F33.1 and Problems related to release from fpc Z65.2 [place] [address] [address]- 5564 09 Nov, 2016 Other abnormal findings in specimens from other organs, systems and tissues R89.8 ; Other male erectile dysfunction N52.8 ; Body mass index (BMI) of 40.0-44.9 in adult Z68.41 and Morbid (severe) obesity due to excess calories E66.01 [place] [address] [address]- 3987 02 Nov, 2016 Post-traumatic stress disorder, unspecified F43.10 ; Major depressive disorder, recurrent, moderate F33.1 and Problems related to release from fpc Z65.2 [facility] [address] [place] [address] [id number] 29 Oct, 2016 Dental examination Z01.20 [place] [id number] [place] [address] 89214- 7087 Oct, [place] [place] [id number] [place] [address] 51085- 5866 Oct, Encounter for immunization Z23 [place] [id number] [place] [address] 68026- 3734 Oct, Chronic pain G89.29 ; Anxiety F41.9 ; Arrhythmia as indication for cardiac pacemaker replacement I49.9 and Glaucoma H40.9 [place] [id number] [place] [address] 94505- 3162 Oct, Anxiety F41.9 ; Post-traumatic stress disorder, chronic F43.12 and Problems related to release from fpc Z65.2 [place] [id number] [place] [address] 97871- 6709 Oct, Post-traumatic stress disorder, unspecified F43.10 ; Major depressive disorder, recurrent, moderate F33.1 and Problems related to release from fpc Z65.2 [facility] [id number] [place] [address] 24155- 3549 Sep, Chronic pain G89.29 and Anxiety F41.9 [place] [id number] [place] [address] 27341- 9439 Sep, Post-traumatic stress disorder, unspecified F43.10 ; Major depressive disorder, recurrent, moderate F33.1 and Problems related to release from fpc Z65.2 [place] [id number] [place] [address] 58035- 2110 Sep, Post-traumatic stress disorder, unspecified F43.10 ; Major depressive disorder, recurrent, moderate F33.1 and Problems related to release from fpc Z65.2 [place] [address] [address]- 4481 Sep, Chronic pain G89.29 [place] [address] [address]- 0119 Aug, Dental caries, unspecified K02.9 [place] [address] [address]- 4979 Aug, Sleep apnea, obstructive G47.33 ; Obesity E66.9 ; Chronic pain G89.29 ; HTN (hypertension) I10 ; Major depressive disorder, recurrent, moderate F33.1 ; Anxiety F41.9 ; Chronic tension headaches G44.229 ; Mitral valve prolapse I34.1 ; Arrhythmia as indication for cardiac pacemaker replacement I49.9 ; Dental caries, unspecified K02.9 ; Primary insomnia F51.01 and Hyperlipidemia E78.5 [place] [address] [place] [address] 18116- 2604 Aug, Post-traumatic stress disorder, unspecified F43.10 ; Major depressive disorder, recurrent, moderate F33.1 and Problems related to release from fpc Z65.2 [place] [address] [address]- 3651 Aug, Dental examination Z01.20 [facility] [id number] [place] [address] [id number] Aug, Dental examination Z01.20 [facility] [address] [address]- 2625 Aug, Post-traumatic stress disorder, unspecified F43.10 ; Major depressive disorder, recurrent, moderate F33.1 and Problems related to release from fpc Z65.2 [place] [address] [address]- 2612 Aug, Chronic pain G89.29 and Primary insomnia F51.01 [place] [address] [place] [address] 05688- 6149 Jul, [place] [place] [id number] [place] [address] 83315- 6021 Jul, [place] [id number] [place] [address] 15546- 3830 Jul, Nausea R11.0 [place] [id number] [place] [address] 91004- 1293 Jul, Arrhythmia as indication for cardiac pacemaker replacement I49.9 [place] [id number] [place] [address] 33576- 5701 Jul, Post-traumatic stress disorder, unspecified F43.10 ; Major depressive disorder, recurrent, moderate F33.1 and Problems related to release from fpc Z65.2 [place] [id number] [place] [address] 64655- 7695 Jul, Anxiety F41.9 [facility] [id number] [place] [address] 40735- 2878 08 Jul, 2016 Chronic pain G89.29 [place] [id number] [place] [address] 65626- 5536 02 Jul, 2016 Sleep apnea, obstructive G47.33 ; Hyperlipidemia E78.5 ; Chronic pain G89.29 ; Blindness and low vision H54.10 ; Major depressive disorder, recurrent, moderate F33.1 ; Anxiety F41.9 ; Mitral valve prolapse I34.1 ; Arrhythmia as indication for cardiac pacemaker replacement I49.9 ; Primary insomnia F51.01 ; Bilateral headaches R51 and Environmental allergies Z91.09 [place] [id number] [place] [address] 37640- 1324 Jul, Post-traumatic stress disorder, unspecified F43.10 ; Major depressive disorder, recurrent, moderate F33.1 and Problems related to release from fpc Z65.2 [place] [id number] [place] [address] 05921- 7669 June, Post-traumatic stress disorder, chronic F43.12 ; Anxiety F41.9 ; Problems related to release from fpc Z65.2 ; Sleep apnea, obstructive G47.33 and Primary insomnia F51.01 [place] [address] [address]- 8703 June, [facility] [id number] [place] [address] 34690- 1520 June, [facility] [id number] [place] [address] 16910- 9615 June, [place] [id number] [place] [address] 09634- 8754 June, Chronic pain G89.29 [place] [id number] [place] [address] 72844- 5647 June, Chronic pain G89.29 [place] [id number] [place] [address] 11669- 7550 June, Lipoma of left lower extremity D17.24 ; Open wound T14.8 and Swelling of left lower extremity M79.89 [place] [address] [place] [address] 25005- 2481 June, Post-traumatic stress disorder, unspecified F43.10 ; Major depressive disorder, recurrent, moderate F33.1 and Problems related to release from fpc Z65.2 [place] [address] [address]- 6174 May, Lipoma of left lower extremity D17.24 ; Major depressive disorder, recurrent, moderate F33.1 ; Sleep apnea, obstructive G47.33 ; Hyperlipidemia E78.5 ; Obesity E66.9 ; HTN (hypertension) I10 ; Glaucoma H40.9 ; CAD (coronary artery disease) I25.10 ; Chronic tension headaches G44.229 ; Chronic pain G89.29 ; Anxiety F41.9 ; Nausea R11.0 and Primary insomnia F51.01 [place] [address] [place] [address] 58310- 8625 May, [place] [address] [place] [address] 56794- 0884 May, Chronic pain G89.29 [place] [id number] [place] [address] 95232- 7562 May, [place] [id number] [place] [address] 04204- 4879 31 Apr, 2016 Post-traumatic stress disorder, unspecified F43.10 ; Major depressive disorder, recurrent, moderate F33.1 and Problems related to release from fpc Z65.2 [place] [id number] [place] [address] 47416- 1785 28 Apr, 2016 Primary insomnia F51.01 ; Post-traumatic stress disorder, chronic F43.12 and Problems related to release from fpc Z65.2 [place] [id number] [place] [address] 53796- 7919 17 Apr, 2016 Post-traumatic stress disorder, unspecified F43.10 ; Major depressive disorder, recurrent, moderate F33.1 and Problems related to release from fpc Z65.2 [place] [id number] [place] [address] 89833- 9678 16 Apr, 2016 [place] [id number] [place] [address] 31193- 7709 16 Apr, 2016 Sleep apnea, obstructive G47.33 ; Chronic pain G89.29 ; HTN (hypertension) I10 ; Mitral valve prolapse I34.1 ; Shoulder pain, left M25.512 ; Arrhythmia as indication for cardiac pacemaker replacement I49.9 ; Glaucoma H40.9 ; Bilateral headaches R51 ; Environmental allergies Z91.09 ; Primary insomnia F51.01 and Nausea R11.0 [place] [id number] [place] [address] 06291- 3771 15 Apr, 2016 [place] [id number] [place] [address] 17682- 4638 Apr, [place] [address] [address]- 5397 Apr, Post-traumatic stress disorder, unspecified F43.10 ; Major depressive disorder, recurrent, moderate F33.1 and Problems related to release from fpc Z65.2 [place] [id number] [place] [address] 17857- 4821 Apr, HTN (hypertension) I10 [place] [id number] [place] [address] 35021- 3747 Apr, HTN (hypertension) I10 [place] [id number] [place] [address] 05559- 6908 Mar, Chronic pain G89.29 ; Primary insomnia F51.01 and Problems related to release from fpc Z65.2 [place] [id number] [place] [address] 32402- 0006 Mar, Post-traumatic stress disorder, unspecified F43.10 ; Major depressive disorder, recurrent, moderate F33.1 and Problems related to release from fpc Z65.2 [place] [id number] [place] [address] 52610- 1839 Feb, Post-traumatic stress disorder, unspecified F43.10 ; Major depressive disorder, recurrent, moderate F33.1 and Problems related to release from fpc Z65.2 [place] [address] [place] [address] 73786- 0091 Feb, Chronic tension headaches G44.229 [place] [id number] [place] [address] 09303- 9456 Feb, Sleep apnea, obstructive G47.33 ; Obesity E66.9 ; Hyperlipidemia E78.5 ; Glaucoma H40.9 ; Chronic pain G89.29 ; HTN (hypertension ) I10 ; Blindness and low vision H54.10 ; Open-angle glaucoma of both eyes H40.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 ; Chronic tension headaches G44.229 ; Cough R05 ; CAD (coronary artery disease) I25.10 ; Problems related to release from fpc Z65.2 ; Arrhythmia as indication for cardiac pacemaker replacement I49.9 and Primary insomnia F51.01 [facility] [id number] [place] [address] 06218- 9400 17 Feb, 2016 Post-traumatic stress disorder, unspecified F43.10 and Chronic pain G89.29 [facility] [id number] [place] [address] 30354- 9765 13 Feb, 2016 [facility] [id number] [place] [address] [id number] Feb, Dental caries K02.9 [facility] [id number] [place] [address] 55033- 9468 Feb, [place] [id number] [place] [address] 81242- 6907 Feb, Post-traumatic stress disorder, unspecified F43.10 ; Major depressive disorder, recurrent, moderate F33.1 and Problems related to release from fpc Z65.2 [place] [id number] [place] [address] 22461- 7556 20 Jan, 2016 Sleep apnea, obstructive G47.33 and Chronic pain G89.29 [place] [id number] [place] [address] 97386- 2329 Jan, [place] [id number] [place] [address] 42628- 3884 Jan, Dental examination Z01.20 [facility] [id number] [place] [address] 15831- 3920 Jan, [facility] [id number] [place] [address] 86705- 3574 Jan, [place] [id number] [place] [address] 74484- 6223 Dec, Post-traumatic stress disorder, unspecified F43.10 ; Major depressive disorder, recurrent, moderate F33.1 and Problems related to release from fpc Z65.2 [place] [id number] [place] [address] 80199- 3108 Dec, Encounter for immunization Z23 ; Problems related to release from fpc Z65.2 ; Sleep apnea, obstructive G47.33 and Post-traumatic stress disorder, chronic F43.12 [place] [address] [place] [address] 11335- 4500 Dec, Sleep apnea, obstructive G47.33 ; Hyperlipidemia E78.5 ; Chronic pain G89.29 ; Glaucoma H40.9 ; HTN (hypertension) I10 ; Post-traumatic stress disorder, unspecified F43.10 ; Anxiety F41.9 ; Chronic tension headaches G44.229 ; Mitral valve prolapse I34.1 and CAD (coronary artery disease) I25.10 [place] [id number] [place] [address] 14306- 0308 Dec, Post-traumatic stress disorder, unspecified F43.10 ; Major depressive disorder, recurrent, moderate F33.1 and Problems related to release from fpc Z65.2 [place] [id number] [place] [address] 98634- 9822 Nov, Chronic pain G89.29 [facility] [id number] [place] [address] 78572- 6385 Nov, Post-traumatic stress disorder, unspecified F43.10 ; Major depressive disorder, recurrent, moderate F33.1 and Problems related to release from fpc Z65.2 [facility] [id number] [place] [address] 75795- 6532 Oct, [facility] [id number] [place] [address] 55359- 1867 Oct, [facility] [id number] [place] [address] 11971- 1533 16 Oct, 2015 Post-traumatic stress disorder, unspecified F43.10 ; Major depressive disorder, recurrent, moderate F33.1 and Problems related to release from fpc Z65.2 [facility] [id number] [place] [address] 35730- 5072 Oct, [facility] [id number] [place] [address] 65111- 1946 Oct, Environmental allergies Z91.09 ; Cough R05 and Open-angle glaucoma of both eyes H40.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 [facility] [id number] [place] [address] 85393- 0686 Sep, [facility] [id number] [place] [address] 11288- 0003 Sep, Post-traumatic stress disorder, unspecified F43.10 ; Major depressive disorder, recurrent, moderate F33.1 and Problems related to release from fpc Z65.2 [facility] [id number] [place] [address] 12236- 4739 Sep, Chronic pain G89.29 [facility] [id number] [place] [address] 08546- 3769 Sep, Other chronic pain G89.29 ; Pain in right shoulder M25.511 and Pain in left shoulder M25.512 [facility] [id number] [place] [address] 46739- 1214 Sep, [facility] [id number] [place] [address] 44950- 6570 Sep, [facility] [id number] [place] [address] 93354- 5339 Sep, [facility] [id number] [place] [address] [id number] Aug, Dental examination Z01.20 [facility] [id number] [place] [address] 15494- 0558 Aug, Post-traumatic stress disorder, unspecified F43.10 ; Open- angle glaucoma of both eyes H40.10X0 and Problems related to release from fpc Z65.2 [facility] [id number] [place] [address] 65328- 0092 Aug, [facility] [id number] [place] [address] 26438- 6322 Aug, Sleep apnea, obstructive G47.33 ; Obesity E66.9 ; Hyperlipidemia E78.5 ; Bilateral headaches R51 ; HTN (hypertension) I10 ; Post- traumatic stress disorder, unspecified F43.10 ; Anxiety F41.9 ; Neuropathy G62.9 ; Glaucoma H40.9 and Chronic pain G89.29 [facility] [address] [id number] Aug, Encounter for dental examination Z01.20 [facility] [id number] [place] [address] 36588- 5508 Aug, Post-traumatic stress disorder, unspecified F43.10 ; Major depressive disorder, recurrent, moderate F33.1 and Problems related to release from fpc Z65.2 [facility] [id number] [place] [address] 16554- 2223 Aug, [facility] [id number] [place] [address] 15140- 6168 Jul, [facility] [id number] [place] [address] 71335- 3577 Jul, Post-traumatic stress disorder, unspecified F43.10 and Major depressive disorder, recurrent, moderate F33.1 [facility] [address] [address]- 3625 Jul, [facility] [address] [address]- 4928 Jul, [facility] [id number] [place] [address] 85688- 0396 Jul, Chronic pain G89.29 [facility] [id number] [place] [address] 90284- 5352 June, Post-traumatic stress disorder, unspecified F43.10 and Major depressive disorder, recurrent, moderate F33.1 [facility] [address] [address]- 6282 June, [facility] [id number] [place] [address] 46340- 7906 June, Chronic pain G89.29 [facility] [id number] [place] [address] 39443- 2924 June, Post-traumatic stress disorder, unspecified F43.10 and Major depressive disorder, recurrent, moderate F33.1 [facility] [id number] [place] [address] 70148- 7733 May, Post-traumatic stress disorder, unspecified F43.10 and Major depressive disorder, recurrent, moderate F33.1 [facility] [id number] [place] [address] 05240- 9467 May, [facility] [id number] [place] [address] 17662- 5434 May, [facility] [id number] [place] [address] 64032- 2031 May, [facility] [id number] [place] [address] 43094- 7491 Apr, [facility] [id number] [place] [address] 77668- 0660 Apr, Post-traumatic stress disorder, unspecified F43.10 and Sleep apnea, obstructive G47.33 [facility] [id number] [place] [address] 41253- 4093 Apr, [facility] [id number] [place] [address] 61522- 7519 Apr, Shoulder pain, left M25.512 [facility] [id number] [place] [address] 16852- 1506 Apr, Post-traumatic stress disorder, unspecified F43.10 and Major depressive disorder, recurrent, moderate F33.1 [facility] [id number] [place] [address] 20286- 4555 Apr, [facility] [id number] [place] [address]- 2546 Apr, [facility] [address] [address]- 6773 Apr, [facility] [id number] [place] [address] 57843- 4261 Apr, Left shoulder pain M25.512 [facility] [id number] [place] [address] 64782- 1204 Mar, [facility] [id number] [place] [address] 19872- 7795 Mar, [facility] [id number] [place] [address] 40222- 6615 Mar, [facility] [id number] [place] [address] 76056- 2427 Mar, Sleep apnea, obstructive G47.33 ; Obesity E66.9 ; Chronic pain G89.29 ; Hyperlipidemia E78.5 ; HTN (hypertension) I10 ; Blindness and low vision H54.10 ; Major depressive disorder, recurrent, moderate F33.1 and Anxiety F41.9 [facility] [id number] [place] [address] 41851- 2486 Mar, [facility] [id number] [place] [address] 56328- 0054 Mar, Post-traumatic stress disorder, unspecified F43.10 and Major depressive disorder, recurrent, moderate F33.1 [facility] [id number] [place] [address] 02234- 2890 Mar, [facility] [id number] [place] [address] 45491- 5642 04 Mar, 2015 HTN (hypertension) I10 ; Blindness and low vision H54.10 ; Obesity E66.9 ; Hyperlipidemia E78.5 ; Glaucoma H40.9 ; Chronic pain G89.29 and CAD (coronary artery disease) I25.10 [facility] [id number] [place] [address] 88601- 2456 Feb, [facility] [id number] [place] [address] 55534- 4883 Feb, Post-traumatic stress disorder, unspecified F43.10 ; Obesity E66.9 ; Sleep apnea, obstructive G47.33 and Open-angle glaucoma of both eyes H40.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 [facility] [id number] [place] [address] 36790- 5537 Feb, Post-traumatic stress disorder, unspecified F43.10 and Major depressive disorder, recurrent, moderate F33.1 [facility] [id number] [place] [address] 42696- 7792 Feb, [facility] [id number] [place] [address] 59740- 5179 Feb, [facility] [id number] [place] [address] 02452- 5357 Feb, HTN (hypertension) I10 ; Post-traumatic stress disorder, unspecified F43.10 ; Blindness and low vision H54.10 ; Obesity E66.9 ; Hyperlipidemia E78.5 ; Chronic pain G89.29 ; Glaucoma H40.9 ; Mitral valve prolapse I34.1 and Bilateral headaches R51 [facility] [id number] [place] [address] 31569- 0488 Feb, [facility] [id number] [place] [address] 21847- 4749 Feb, Post-traumatic stress disorder, unspecified F43.10 and Major depressive disorder, recurrent, moderate F33.1 [facility] [id number] [place] [address] 37070- 4602 Feb, [facility] [id number] [place] [address] 29272- 5916 Feb, [facility] [id number] [place] [address] 21210- 1083 Jan, [facility] [id number] [place] [address] 41181- 2918 Jan, [facility] [id number] [place] [address] 35840- 7689 Jan, Obesity E66.9 ; HTN (hypertension) I10 ; Blindness and low vision H54.10 ; Major depressive disorder, recurrent, moderate F33.1 ; Glaucoma H40.9 ; Hyperlipidemia E78.5 ; Sleep apnea, obstructive G47.33 ; Chronic pain G89.29 ; Anxiety F41.9 ; Chronic tension headaches G44.229 and Cough R05 [facility] [id number] [place] [address] 40307- 6458 Jan, [address] 11279- 5480 Jan, [address] 41237- 5192 Jan, Post-traumatic stress disorder, unspecified F43.10 ; Obesity E66.9 ; Sleep apnea, obstructive G47.33 and Open-angle glaucoma of both eyes H40.10X0 [address] 85647- 7316 Jan, [facility] [id number] [place] [address] 67778- 8123 Jan, Post-traumatic stress disorder, unspecified F43.10 and Major depressive disorder, recurrent, moderate F33.1 [facility] [id number] [place] [address] 20765- 7950 Dec, [facility] [id number] [place] [address] 92961- 4157 Dec, Sleep apnea, obstructive G47.33 ; Obesity E66.9 ; Hyperlipidemia E78.5 ; Glaucoma H40.9 ; Chronic pain G89.29 ; HTN (hypertension ) I10 ; Blindness and low vision H54.10 ; Anxiety F41.9 and CAD (coronary artery disease) I25.[address] [place] [address]- 3086 Nov, [facility] [id number] [place] [address] 88424- 3316 Nov, [facility] [id number] [place] [address] 11931- 0311 Nov, [facility] [id number] [place] [address] 20728- 6741 Nov, [facility] [id number] [place] [address] 29905- 2226 Nov, [facility] [address] 03487- 2305 Nov, Encounter for immunization Z23 ; Sleep apnea, obstructive G47.33 ; Obesity E66.9 ; Hyperlipidemia E78.5 ; Glaucoma H40.9 ; Chronic pain G89.29 ; Anxiety F41.9 ; Chronic tension headaches G44.229 and HTN (hypertension ) I10 [facility] [id number] [place] [address] 37935- 0362 Nov, [facility] [id number] [place] [address] 57214- 8001 Nov, [facility] [id number] [place] [address] 25878- 8176 06 Nov, 2014 Dizziness R42 [facility] [id number] [place] [address] 57956- 4868 Nov, [facility] [id number] [place] [address] 86350- 1229 29 Oct, 2014 [facility] [id number] [place] [address] 85754- 8280 28 Oct, 2014 [facility] [id number] [place] [address] 04642- 7582 Oct, [facility] [id number] [place] [address] 48334- 8977 Oct, [facility] [address] [address]- 7040 Oct, Dizziness 780.4 ; Essential hypertension 401.9 ; Obesity 278.00 ; Hyperlipidemia 272.4 ; Chronic pain 338.29 ; Glaucoma 365.9 and Anxiety 300.00 [facility] [id number] [place] [address] 19796- 1899 Oct, Essential hypertension 401.9 ; Hyperlipidemia 272.4 ; Glaucoma 365.9 ; Obesity 278.00 ; Chronic pain 338.29 and Allergy to insects V15.06 [facility] [id number] [place] [address] 37893- 4035 Sep, [facility] [id number] [place] [address] 36664- 1258 Sep, [facility] [id number] [place] [address] 85499- 9843 Sep, [facility] [id number] [place] [address] 99989- 2735 Sep, [facility] [id number] [place] [address] 69628- 8006 Aug, Essential hypertension 401.9 ; Obesity 278.00 ; Hyperlipidemia 272.4 ; Glaucoma 365.9 ; Lipoma 214.9 ; Mitral valve prolapse 424.0 ; Angina at rest 413.9 ; Lymphedema 457.1 and Chronic pain 338.29 IMMUNIZATIONS No Known Immunizations SOCIAL HISTORY Never Assessed REASON FOR VISIT Medication question PLAN OF CARE VITAL SIGNS MEDICATIONS Unknown [...]
--- OUTSIDE RECORDS SUMMARY | 2018-02-04 14:57 | XMS REPORT ---
Author Author ALENA ÁLVAREZ Organization [facility] Address [address] [place] [address] Care Team Providers Care Production Department Supervisor Name Role Phone ALENA ÁLVAREZ Unavailable PROBLEMS Type Condition ICD9-CM Code LCR59-QR Code Onset Dates Condition Status SNOMED Code Problem Primary insomnia F51.01 Active 7633027 Problem Other male erectile dysfunction N52.8 Active 539539378 Problem Morbid (severe) obesity due to excess calories E66.01 Active 714459392 Problem Sarcoidosis D86.9 Active 18506713 Problem Blindness and low vision H54.10 Active 950872355 Problem Problems related to release from intermediate Z65.2 Active [id number] Problem Myocarditis, unspecified chronicity, 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 Active 12621887 Problem Chronic pain G89.29 Active 20752229 Problem 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 Active 662669625 Problem Body mass index (BMI) of 40.0-44.9 in adult Z68.41 Active 603172678 Problem Chronic pain syndrome G89.4 Active 044742274 Problem Migraine without aura and without status migrainosus, not intractable G43.009 Active 590379001 Problem Anxiety F41.9 Active 92830174 Problem Major depressive disorder, recurrent, moderate F33.1 Active 32479755 Problem HTN (hypertension) I10 Active 46871098 Problem Chronic tension headaches G44.229 Active 476177016 Problem CAD (coronary artery disease) I25.10 Active 25853727 Problem Post-traumatic stress disorder, chronic F43.12 Active 887624436 Problem Hyperlipidemia E78.5 Active 82112550 Problem Open-angle glaucoma of both eyes H40.10X0 Active 33430461 Problem Environmental allergies Z91.09 Active 256035292 Problem Sleep apnea, obstructive G47.33 Active 45224241 Problem Mitral valve prolapse I34.1 Active 247272072 Problem Arrhythmia as indication for cardiac pacemaker replacement I49.9 Active 55886889 ALLERGIES No Information ENCOUNTERS Encounter Location Date Diagnosis [facility] [address], [place] [address] Oct, [facility] [id number] [place] [address] 92323- 3928 Oct, [facility] [address], [place] [address] Sep, [facility] [id number] [place] [address] 63734- 2592 Sep, [facility] [address] [place] [address] 29687- 4756 Sep, [facility] [id number] [place] [address] 70850- 1358 Aug, Post-traumatic stress disorder, unspecified F43.10 ; Major depressive disorder, recurrent, moderate F33.1 and Problems related to release from intermediate Z65.2 [place] [id number] [place] [address] 45998- 3606 11 Aug, 2017 [facility] [id number] [place] [address] 24160- 6192 Aug, Left leg pain M79.605 [place] [address] [place] [address] 35986- 5936 26 Jul, 2017 Post-traumatic stress disorder, chronic F43.12 ; Anxiety F41.9 ; Problems related to release from intermediate Z65.2 and BMI 40.0-44.9, adult Z68.41 [facility] [address] [address] Jul, HTN (hypertension) I10 ; Body mass index (BMI) of 40.0-44.9 in adult Z68.41 and Acute swimmer''s ear of both sides H60.333 [place] [address] [address] 50[address] Jul, Glaucoma H40.9 [place] [id number] [place] [address] 87046- 0059 Jul, [facility] [id number] [place] [address] 13329- 1310 Jul, Sarcoidosis D86.9 [facility] [id number] [place] [address] 54142- 4401 Jul, Left leg pain M79.605 [facility] [address] 97007- 2799 Jul, Sarcoidosis D86.9 [facility] [id number] [place] [address] 56809- 3770 Jul, Post-traumatic stress disorder, unspecified F43.10 ; Major depressive disorder, recurrent, moderate F33.1 and Problems related to release from intermediate Z65.2 [facility] [id number] [place] [address] 29078- 3299 June, [facility] [id number] [place] [address] 14671 -6987 June, Sore throat J02.9 and BMI 40.0-44.9, adult Z68.41 [facility] [id number] [place] [address] 85681- 7990 June, [facility] [id number] [place] [address] 29624- 1894 June, [facility] [id number] [place] [address] 19540- 9590 June, [facility] [id number] [place] [address] 97455- 7132 June, Left leg pain M79.605 [facility] [id number] [place] [address] 03838- 4128 June, Sarcoidosis D86.9 [facility] [id number] [address] 1155 June, [facility] [address] [address] 9876 June, [facility] [id number] [place] [address] 20997- 3164 June, Left leg pain M79.605 [facility] [id number] [place] [address] 88795- 1387 May, [facility] [id number] [place] [address] 12582- 8095 May, [facility] [id number] [place] [address] 11603- 8632 May, [facility] [id number] [place] [address] 56413- 2895 May, Left leg pain M79.605 [facility] [address] [place] [address] 21220- 4266 May, Post-traumatic stress disorder, unspecified F43.10 ; Major depressive disorder, recurrent, moderate F33.1 and Problems related to release from intermediate Z65.2 [place] [address] [place] [address] 53868- 7983 May, Chronic pain G89.29 ; Anxiety F41.9 ; Chest pain, unspecified type R07.9 and BMI 40.0-44.9, adult Z68.41 [place] [address] [place] [address] 23870- 5123 Apr, [facility] [address] [place] [address] 13629- 6195 Apr, Left leg pain M79.605 [facility] [id number] [place] [address] 18163- 3195 Apr, Post-traumatic stress disorder, unspecified F43.10 ; Problems related to release from intermediate Z65.2 ; Anxiety F41.9 and BMI 40.0-44.9 , adult Z68.41 [facility] [address] 94270- 5245 22 Apr, 2017 [place] [address] 42703- 2526 19 Apr, 2017 Left leg pain M79.605 [place] [address] 66294- 4691 13 Apr, 2017 Post-traumatic stress disorder, unspecified F43.10 ; Major depressive disorder, recurrent, moderate F33.1 and Problems related to release from intermediate Z65.2 [place] [address] 50644- 5936 12 Apr, 2017 [place] [address] 87364- 0140 12 Apr, 2017 Chronic pain G89.29 ; 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 ; Morbid (severe) obesity due to excess calories E66.01 ; Anxiety F41.9 and BMI 40.0-44.9, adult Z68.41 [facility] [place] [address] 56018 -2436 10 Apr, 2017 Sore throat J02.9 and BMI 40.0-44.9, adult Z68.41 [place] [address] 29636- 1032 02 Apr, 2017 Left leg pain M79.605 [facility] [address] [id number] Mar, Dental examination Z01.20 [place] [address] 83307- 4481 Mar, [facility] [address] 56282 -9174 20 Mar, 2017 Cough R05 ; Viral gastroenteritis A08.4 and BMI 40.0-44.9, adult Z68.41 [place] [address] 80098- 4739 19 Mar, 2017 Left leg pain M79.605 [place] [address] [place] [address] 21523- 8130 Mar, Post-traumatic stress disorder, unspecified F43.10 ; Major depressive disorder, recurrent, moderate F33.1 and Problems related to release from intermediate Z65.2 [place] [id number] [place] [address] 11215- 9089 Feb, Left leg pain M79.605 [place] [id number] [place] [address] 89387- 2647 Feb, [place] [id number] [place] [address] 43136- 6483 Feb, BMI 40.0-44.9, adult Z68.41 ; Chronic pain syndrome G89.4 ; Migraine without aura and without status migrainosus, not intractable G43.009 ; Mitral valve prolapse I34.1 and 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 [place] [id number] [place] [address] 49973- 7438 Feb, Post-traumatic stress disorder, chronic F43.12 ; Anxiety F41.9 ; Problems related to release from intermediate Z65.2 and BMI 40.0-44.9, adult Z68.41 [place] [id number] [place] [address] 62659- 2663 Feb, Post-traumatic stress disorder, unspecified F43.10 ; Major depressive disorder, recurrent, moderate F33.1 and Problems related to release from intermediate Z65.2 [place] [address] [place] [address] 58716- 3114 Feb, Left leg pain M79.605 [place] [id number] [place] [address] 60343- 1114 Jan, Post-traumatic stress disorder, unspecified F43.10 ; Major depressive disorder, recurrent, moderate F33.1 and Problems related to release from intermediate Z65.2 [place] [id number] [place] [address] 69320- 8813 Jan, [facility] [address], [place] [address]- 2787 Jan, [facility] [address] [place] [address] 04855- 3056 Jan, Anxiety F41.9 [facility] [address], [place] [address]- 7935 Jan, Left leg pain M79.605 [facility] [address] [place] [address] 68288- 5613 Dec, Left leg pain M79.605 [facility] [address] [place] [address] 60528- 9406 Dec, [facility] [address] [place] [address] 03639- 4378 Dec, Post-traumatic stress disorder, unspecified F43.10 ; Major depressive disorder, recurrent, moderate F33.1 and Problems related to release from intermediate Z65.2 [facility] [address], [place] [address]- 0435 31 Nov, 2016 Chronic pain G89.29 and Anxiety F41.9 [facility] [address], [place] [address]- 5082 24 Nov, 2016 Chronic pain G89.29 and Anxiety F41.9 [place] [address], [place] [address]- 9035 16 Nov, 2016 Post-traumatic stress disorder, unspecified F43.10 ; Major depressive disorder, recurrent, moderate F33.1 and Problems related to release from intermediate Z65.2 [place] [address], [place] [address]- 2270 09 Nov, 2016 Other abnormal findings in specimens from other organs, systems and tissues R89.8 ; Other male erectile dysfunction N52.8 ; Body mass index (BMI) of 40.0-44.9 in adult Z68.41 and Morbid (severe) obesity due to excess calories E66.01 [place] [address], [place] [address]- 1882 02 Nov, 2016 Post-traumatic stress disorder, unspecified F43.10 ; Major depressive disorder, recurrent, moderate F33.1 and Problems related to release from intermediate Z65.2 [facility] [address] [place] [address] [id number] 29 Oct, 2016 Dental examination Z01.20 [place] [id number] [place] [address] 54736- 7346 Oct, [place] [id number] [place] [address] 78841- 6569 Oct, Encounter for immunization Z23 [place] [id number] [place] [address] 27603- 9804 Oct, Chronic pain G89.29 ; Anxiety F41.9 ; Arrhythmia as indication for cardiac pacemaker replacement I49.9 and Glaucoma H40.9 [place] [id number] [place] [address] 40365- 2190 Oct, Anxiety F41.9 ; Post-traumatic stress disorder, chronic F43.12 and Problems related to release from intermediate Z65.2 [place] [address] [place] [address] 03356- 7686 Oct, Post-traumatic stress disorder, unspecified F43.10 ; Major depressive disorder, recurrent, moderate F33.1 and Problems related to release from intermediate Z65.2 [facility] [address] [place] [address] 27886- 5876 Sep, Chronic pain G89.29 and Anxiety F41.9 [place] [id number] [place] [address] 42157- 6707 Sep, Post-traumatic stress disorder, unspecified F43.10 ; Major depressive disorder, recurrent, moderate F33.1 and Problems related to release from intermediate Z65.2 [place] [id number] [place] [address] 60944- 8137 Sep, Post-traumatic stress disorder, unspecified F43.10 ; Major depressive disorder, recurrent, moderate F33.1 and Problems related to release from intermediate Z65.2 [place] [address], [place] [address]- 9727 Sep, Chronic pain G89.29 [place] [address], [place] [address]- 2133 Aug, Dental caries, unspecified K02.9 [place] [address] [address]- 3975 Aug, Sleep apnea, obstructive G47.33 ; Obesity E66.9 ; Chronic pain G89.29 ; HTN (hypertension) I10 ; Major depressive disorder, recurrent, moderate F33.1 ; Anxiety F41.9 ; Chronic tension headaches G44.229 ; Mitral valve prolapse I34.1 ; Arrhythmia as indication for cardiac pacemaker replacement I49.9 ; Dental caries, unspecified K02.9 ; Primary insomnia F51.01 and Hyperlipidemia E78.5 [place] [address] [place] [address] 15941- 8873 Aug, Post-traumatic stress disorder, unspecified F43.10 ; Major depressive disorder, recurrent, moderate F33.1 and Problems related to release from intermediate Z65.2 [place] [address], [place] [address]- 9269 Aug, Dental examination Z01.20 [facility] [id number] [place] [address] [id number] Aug, Dental examination Z01.20 [facility] [address], [place] [address]- 1340 Aug, Post-traumatic stress disorder, unspecified F43.10 ; Major depressive disorder, recurrent, moderate F33.1 and Problems related to release from intermediate Z65.2 [place] [address], [place] [address]- 0918 Aug, Chronic pain G89.29 and Primary insomnia F51.01 [place] [address] [place] [address] 09893- 8476 Jul, [place] [id number] [place] [address] 35838- 9206 Jul, [place] [id number] [place] [address] 78319- 2325 Jul, Nausea R11.0 [place] [id number] [place] [address] 89176- 4674 Jul, Arrhythmia as indication for cardiac pacemaker replacement I49.9 [place] [id number] [place] [address] 23186- 7286 Jul, Post-traumatic stress disorder, unspecified F43.10 ; Major depressive disorder, recurrent, moderate F33.1 and Problems related to release from intermediate Z65.2 [place] [id number] [place] [address] 39949- 1647 Jul, Anxiety F41.9 [place] [id number] [place] [address] 15501- 0437 08 Jul, 2016 Chronic pain G89.29 [place] [id number] [place] [address] 80088- 2516 02 Jul, 2016 Sleep apnea, obstructive G47.33 ; Hyperlipidemia E78.5 ; Chronic pain G89.29 ; Blindness and low vision H54.10 ; Major depressive disorder, recurrent, moderate F33.1 ; Anxiety F41.9 ; Mitral valve prolapse I34.1 ; Arrhythmia as indication for cardiac pacemaker replacement I49.9 ; Primary insomnia F51.01 ; Bilateral headaches R51 and Environmental allergies Z91.09 [place] [id number] [place] [address] 29319- 1951 Jul, Post-traumatic stress disorder, unspecified F43.10 ; Major depressive disorder, recurrent, moderate F33.1 and Problems related to release from intermediate Z65.2 [place] [id number] [place] [address] 93237- 9079 June, Post-traumatic stress disorder, chronic F43.12 ; Anxiety F41.9 ; Problems related to release from intermediate Z65.2 ; Sleep apnea, obstructive G47.33 and Primary insomnia F51.01 [place] [address], [place] [address]- 3642 June, [facility] [id number] [place] [address] 10001- 1207 June, [facility] [id number] [place] [address] 58537- 0750 June, [place] [id number] [place] [address] 33776- 0626 June, Chronic pain G89.29 [place] [id number] [place] [address] 38130- 6571 June, Chronic pain G89.29 [place] [id number] [place] [address] 96153- 4903 June, Lipoma of left lower extremity D17.24 ; Open wound T14.8 and Swelling of left lower extremity M79.89 [place] [address] [place] [address] 62902- 2004 June, Post-traumatic stress disorder, unspecified F43.10 ; Major depressive disorder, recurrent, moderate F33.1 and Problems related to release from intermediate Z65.2 [place] [address], [place] [address]- 9891 May, Lipoma of left lower extremity D17.24 ; Major depressive disorder, recurrent, moderate F33.1 ; Sleep apnea, obstructive G47.33 ; Hyperlipidemia E78.5 ; Obesity E66.9 ; HTN (hypertension) I10 ; Glaucoma H40.9 ; CAD (coronary artery disease) I25.10 ; Chronic tension headaches G44.229 ; Chronic pain G89.29 ; Anxiety F41.9 ; Nausea R11.0 and Primary insomnia F51.01 [place] [address] [place] [address] 19635- 0908 May, [place] [address] [place] [address] 74088- 7256 May, Chronic pain G89.29 [place] [id number] [place] [address] 82255- 3688 May, [place] [id number] [place] [address] 79879- 8243 31 Apr, 2016 Post-traumatic stress disorder, unspecified F43.10 ; Major depressive disorder, recurrent, moderate F33.1 and Problems related to release from intermediate Z65.2 [place] [id number] [place] [address] 26611- 6940 28 Apr, 2016 Primary insomnia F51.01 ; Post-traumatic stress disorder, chronic F43.12 and Problems related to release from intermediate Z65.2 [place] [id number] [place] [address] 23882- 2286 17 Apr, 2016 Post-traumatic stress disorder, unspecified F43.10 ; Major depressive disorder, recurrent, moderate F33.1 and Problems related to release from intermediate Z65.2 [place] [id number] [place] [address] 09564- 3001 16 Apr, 2016 [place] [id number] [place] [address] 67982- 7816 16 Apr, 2016 Sleep apnea, obstructive G47.33 ; Chronic pain G89.29 ; HTN (hypertension) I10 ; Mitral valve prolapse I34.1 ; Shoulder pain, left M25.512 ; Arrhythmia as indication for cardiac pacemaker replacement I49.9 ; Glaucoma H40.9 ; Bilateral headaches R51 ; Environmental allergies Z91.09 ; Primary insomnia F51.01 and Nausea R11.0 [place] [id number] [place] [address] 52466- 7433 15 Apr, 2016 [place] [id number] [place] [address] 88042- 6682 Apr, [place] [address] [address]- 0843 Apr, Post-traumatic stress disorder, unspecified F43.10 ; Major depressive disorder, recurrent, moderate F33.1 and Problems related to release from intermediate Z65.2 [place] [id number] [place] [address] 70267- 8472 Apr, HTN (hypertension) I10 [place] [id number] [place] [address] 94310- 0174 Apr, HTN (hypertension) I10 [place] [id number] [place] [address] 02507- 9848 Mar, Chronic pain G89.29 ; Primary insomnia F51.01 and Problems related to release from intermediate Z65.2 [place] [id number] [place] [address] 12878- 0720 Mar, Post-traumatic stress disorder, unspecified F43.10 ; Major depressive disorder, recurrent, moderate F33.1 and Problems related to release from intermediate Z65.2 [place] [id number] [place] [address] 30047- 0774 Feb, Post-traumatic stress disorder, unspecified F43.10 ; Major depressive disorder, recurrent, moderate F33.1 and Problems related to release from intermediate Z65.2 [place] [address] [place] [address] 78696- 3700 Feb, Chronic tension headaches G44.229 [place] [id number] [place] [address] 86684- 7309 Feb, Sleep apnea, obstructive G47.33 ; Obesity [...] pacemaker replacement I49.9 and Primary insomnia F51.01 [facility] [id number] [place] [address] 07726- 7539 17 Feb, 2016 Post-traumatic stress disorder, unspecified F43.10 and Chronic pain G89.29 [facility] [id number] [place] [address] 06443- 2299 13 Feb, 2016 [facility] [id number] [place] [address] [id number] Feb, Dental caries K02.9 [facility] [id number] [place] [address] 52090- 8582 Feb, [place] [id number] [place] [address] 64558- 2429 Feb, Post-traumatic stress disorder, unspecified F43.10 ; Major depressive disorder, recurrent, moderate F33.1 and Problems related to release from intermediate Z65.2 [place] [id number] [place] [address] 73865- 1767 20 Jan, 2016 Sleep apnea, obstructive G47.33 and Chronic pain G89.29 [place] [id number] [place] [address] 85663- 3745 Jan, [place] [id number] [place] [address] 73740- 1988 Jan, Dental examination Z01.20 [facility] [id number] [place] [address] 27947- 7645 Jan, [facility] [id number] [place] [address] 79708- 0730 Jan, [place] [id number] [place] [address] 34627- 8319 Dec, Post-traumatic stress disorder, unspecified F43.10 ; Major depressive disorder, recurrent, moderate F33.1 and Problems related to release from intermediate Z65.2 [place] [id number] [place] [address] [id number] [phone] Dec, Encounter for immunization Z23 ; Problems related to release from intermediate Z65.2 ; Sleep apnea, obstructive G47.33 and Post-traumatic stress disorder, chronic F43.12 [place] [id number] [place] [address] [id number]- 1795 Dec, Sleep apnea, obstructive G47.33 ; Hyperlipidemia E78.5 ; Chronic pain G89.29 ; Glaucoma H40.9 ; HTN (hypertension) I10 ; Post-traumatic stress disorder, unspecified F43.10 ; Anxiety F41.9 ; Chronic tension headaches G44.229 ; Mitral valve prolapse I34.1 and CAD (coronary artery disease) I25.10 [facility] [id number] [place] [address] 26615- 3040 Dec, Post-traumatic stress disorder, unspecified F43.10 ; Major depressive disorder, recurrent, moderate F33.1 and Problems related to release from intermediate Z65.2 [facility] [id number] [place] [address] 58767- 3686 Nov, Chronic pain G89.29 [facility] [id number] [place] [address] 66613- 7861 Nov, Post-traumatic stress disorder, unspecified F43.10 ; Major depressive disorder, recurrent, moderate F33.1 and Problems related to release from intermediate Z65.2 [facility] [address] [place] [address] 81143- 7303 Oct, [facility] [id number] [place] [address] 66955- 0698 Oct, [facility] [id number] [place] [address] 04596- 3423 16 Oct, 2015 Post-traumatic stress disorder, unspecified F43.10 ; Major depressive disorder, recurrent, moderate F33.1 and Problems related to release from intermediate Z65.2 [facility] [address] [place] [address] 26615- 9869 Oct, [facility] [id number] [place] [address] 74088- 0111 Oct, Environmental allergies Z91.09 ; Cough R05 and Open-angle glaucoma of both eyes H40.10X0 [facility] [id number] [place] [address] 11550- 3417 Sep, [facility] [id number] [place] [address] 06478- 1757 Sep, Post-traumatic stress disorder, unspecified F43.10 ; Major depressive disorder, recurrent, moderate F33.1 and Problems related to release from intermediate Z65.2 [facility] [id number] [place] [address] 09591- 3898 Sep, Chronic pain G89.29 [facility] [id number] [place] [address] 76851- 4780 Sep, Other chronic pain G89.29 ; Pain in right shoulder M25.511 and Pain in left shoulder M25.512 [facility] [id number] [place] [address] 25446- 6688 Sep, [facility] [id number] [place] [address] 26527- 5253 Sep, [facility] [id number] [place] [address] 20285- 0991 Sep, [facility] [id number] [place] [address] [id number] Aug, Dental examination Z01.20 [facility] [id number] [place] [address] 25475- 6001 Aug, Post-traumatic stress disorder, unspecified F43.10 ; Open- angle glaucoma of both eyes H40.10X0 and Problems related to release from intermediate Z65.2 [facility] [id number] [place] [address] 06597- 7228 Aug, [facility] [id number] [place] [address] 26597- 2517 Aug, Sleep apnea, obstructive G47.33 ; Obesity E66.9 ; Hyperlipidemia E78.5 ; Bilateral headaches R51 ; HTN (hypertension) I10 ; Post- traumatic stress disorder, unspecified F43.10 ; Anxiety F41.9 ; Neuropathy G62.9 ; Glaucoma H40.9 and Chronic pain G89.29 [facility] [address] [id number] Aug, Encounter for dental examination Z01.20 [facility] [id number] [place] [address] 40982- 4741 Aug, Post-traumatic stress disorder, unspecified F43.10 ; Major depressive disorder, recurrent, moderate F33.1 and Problems related to release from intermediate Z65.2 [facility] [id number] [place] [address] 34704- 1012 Aug, [facility] [id number] [place] [address] 39995- 3772 Jul, [facility] [id number] [place] [address] 09864- 4183 Jul, Post-traumatic stress disorder, unspecified F43.10 and Major depressive disorder, recurrent, moderate F33.1 [facility] [address] [address] 4823 Jul, [facility] [address] [address] 0629 Jul, [facility] [id number] [place] [address] 16521- 3737 Jul, Chronic pain G89.29 [facility] [id number] [place] [address] 60409- 4541 June, Post-traumatic stress disorder, unspecified F43.10 and Major depressive disorder, recurrent, moderate F33.1 [facility] [address] [address] 8664 June, [facility] [id number] [place] [address] 75308- 6769 June, Chronic pain G89.29 [facility] [id number] [place] [address] 09262- 3412 June, Post-traumatic stress disorder, unspecified F43.10 and Major depressive disorder, recurrent, moderate F33.1 [facility] [id number] [place] [address] 27839- 8254 May, Post-traumatic stress disorder, unspecified F43.10 and Major depressive disorder, recurrent, moderate F33.1 [facility] [id number] [place] [address] 38633- 6347 May, [facility] [id number] [place] [address] 88795- 8889 May, [facility] [id number] [place] [address] 02329- 4700 May, [facility] [id number] [place] [address] 16094- 7564 Apr, [facility] [id number] [place] [address] 65677- 0383 Apr, Post-traumatic stress disorder, unspecified F43.10 and Sleep apnea, obstructive G47.33 [facility] [id number] [place] [address] 53658- 0477 Apr, [facility] [id number] [place] [address] 48887- 2950 Apr, Shoulder pain, left M25.512 [facility] [id number] [place] [address] 70259- 6483 Apr, Post-traumatic stress disorder, unspecified F43.10 and Major depressive disorder, recurrent, moderate F33.1 [facility] [id number] [place] [address] 29363- 5436 Apr, [facility] [id number] [place] [id number] 2546 Apr, [facility] [address] [address] 9423 Apr, [facility] [address] [place] [address] 55230- 0825 Apr, Left shoulder pain M25.512 [facility] [id number] [place] [address] 41039- 1481 Mar, [facility] [address] [place] [address] 13794- 0253 Mar, [facility] [id number] [place] [address] 59541- 9969 Mar, [facility] [id number] [place] [address] 59667- 5701 Mar, Sleep apnea, obstructive G47.33 ; Obesity E66.9 ; Chronic pain G89.29 ; Hyperlipidemia E78.5 ; HTN (hypertension) I10 ; Blindness and low vision H54.10 ; Major depressive disorder, recurrent, moderate F33.1 and Anxiety F41.9 [facility] [id number] [place] [address] 78891- 6944 Mar, [facility] [address] [place] [address] 68793- 2608 Mar, Post-traumatic stress disorder, unspecified F43.10 and Major depressive disorder, recurrent, moderate F33.1 [facility] [address] [place] [address] 53989- 8897 Mar, [facility] [id number] [place] [address] 69060- 1374 04 Mar, 2015 HTN (hypertension) I10 ; Blindness and low vision H54.10 ; Obesity E66.9 ; Hyperlipidemia E78.5 ; Glaucoma H40.9 ; Chronic pain G89.29 and CAD (coronary artery disease) I25.10 [facility] [id number] [place] [address] 99329- 7718 Feb, [facility] [id number] [place] [address] 75975- 4679 Feb, Post-traumatic stress disorder, unspecified F43.10 ; Obesity E66.9 ; Sleep apnea, obstructive G47.33 and Open-angle glaucoma of both eyes H40.10X0 [facility] [id number] [place] [address] 50399- 3193 Feb, Post-traumatic stress disorder, unspecified F43.10 and Major depressive disorder, recurrent, moderate F33.1 [facility] [id number] [place] [address] 64063- 9782 Feb, [facility] [id number] [place] [address] 35001- 0882 Feb, [facility] [id number] [place] [address] 49760- 0983 Feb, HTN (hypertension) I10 ; Post-traumatic stress disorder, unspecified F43.10 ; Blindness and low vision H54.10 ; Obesity E66.9 ; Hyperlipidemia E78.5 ; Chronic pain G89.29 ; Glaucoma H40.9 ; Mitral valve prolapse I34.1 and Bilateral headaches R51 [facility] [address] [place] [address] 42201- 0509 Feb, [facility] [id number] [place] [address] 53540- 6904 Feb, Post-traumatic stress disorder, unspecified F43.10 and Major depressive disorder, recurrent, moderate F33.1 [facility] [id number] [place] [address] 05261- 8828 Feb, [facility] [id number] [place] [address] 52389- 2553 Feb, [facility] [address] [place] [address] 73371- 3982 Jan, [facility] [id number] [place] [address] 78783- 9158 Jan, [facility] [id number] [place] [address] 28793- 0782 Jan, Obesity E66.9 ; HTN (hypertension) I10 ; Blindness and low vision H54.10 ; Major depressive disorder, recurrent, moderate F33.1 ; Glaucoma H40.9 ; Hyperlipidemia E78.5 ; Sleep apnea, obstructive G47.33 ; Chronic pain G89.29 ; Anxiety F41.9 ; Chronic tension headaches G44.229 and Cough R05 [facility] [id number] [place] [address] 32863- 8451 Jan, [address] 00193- 1006 Jan, [address] 73461- 1850 Jan, Post-traumatic stress disorder, unspecified F43.10 ; Obesity E66.9 ; Sleep apnea, obstructive G47.33 and Open-angle glaucoma of both eyes H40.10X0 [address] 20836- 0208 Jan, [facility] [id number] [place] [address] 42416- 6181 Jan, Post-traumatic stress disorder, unspecified F43.10 and Major depressive disorder, recurrent, moderate F33.1 [facility] [id number] [place] [address] 08321- 3227 Dec, [facility] [id number] [place] [address] 54674- 1152 Dec, Sleep apnea, obstructive G47.33 ; Obesity E66.9 ; Hyperlipidemia E78.5 ; Glaucoma H40.9 ; Chronic pain G89.29 ; HTN (hypertension ) I10 ; Blindness and low vision H54.10 ; Anxiety F41.9 and CAD (coronary artery disease) I25.[address] [place] [address]- 3738 Nov, [facility] [id number] [place] [address] 09891- 8174 Nov, [facility] [id number] [place] [address] 92289- 9042 Nov, [facility] [id number] [place] [address] 44781- 0900 Nov, [facility] [id number] [place] [address] 88804- 1072 Nov, [facility] [address] 16965- 4053 Nov, Encounter for immunization Z23 ; Sleep apnea, obstructive G47.33 ; Obesity E66.9 ; Hyperlipidemia E78.5 ; Glaucoma H40.9 ; Chronic pain G89.29 ; Anxiety F41.9 ; Chronic tension headaches G44.229 and HTN (hypertension ) I10 [facility] [id number] [place] [address] 54320- 4108 Nov, [facility] [id number] [place] [address] 45534- 2102 Nov, [facility] [id number] [place] [address] 86394- 9675 06 Nov, 2014 Dizziness R42 [facility] [id number] [place] [address] 91098- 2346 Nov, [facility] [id number] [place] [address] 48696- 9786 29 Oct, 2014 [facility] [id number] [place] [address] 54098- 0532 28 Oct, 2014 [facility] [id number] [place] [address] 60817- 3843 Oct, [facility] [id number] [place] [address] 10782- 0689 Oct, [facility] [address], [place] [address]- 2058 Oct, Dizziness 780.4 ; Essential hypertension 401.9 ; Obesity 278.00 ; Hyperlipidemia 272.4 ; Chronic pain 338.29 ; Glaucoma 365.9 and Anxiety 300.00 [facility] [id number] [place] [address] 11453- 6265 Oct, Essential hypertension 401.9 ; Hyperlipidemia 272.4 ; Glaucoma 365.9 ; Obesity 278.00 ; Chronic pain 338.29 and Allergy to insects V15.06 [facility] [id number] [place] [address] 11807- 9074 Sep, [facility] [id number] [place] [address] 88226- 3360 Sep, [facility] [address] 00980- 2853 Sep, [facility] [id number] [place] [address] 42903- 6085 Sep, [facility] [id number] [place] [address] 47408- 4723 Aug, Essential hypertension 401.9 ; Obesity 278.00 ; Hyperlipidemia 272.4 ; Glaucoma 365.9 ; Lipoma 214.9 ; Mitral valve prolapse 424.0 ; Angina at rest 413.9 ; Lymphedema 457.1 and Chronic pain 338.29 IMMUNIZATIONS No Known Immunizations SOCIAL HISTORY Never Assessed REASON FOR VISIT Controlled Med Refill-titrating oycodone PLAN OF CARE VITAL SIGNS MEDICATIONS Medication Instructions Dosage Frequency Start Date End Date Duration Status Oxycodone HCl 10 mg 1 tablet every am and 1/2 tablet in the pm Apr, Active RESULTS No Results PROCEDURES No [...]
--- OUTSIDE RECORDS SUMMARY | 2018-02-04 14:58 | XMS REPORT ---
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 Name Role Phone ALENA ÁLVAREZ Unavailable PROBLEMS Type Condition ICD9-CM Code WAL80-RC Code Onset Dates Condition Status SNOMED Code Problem Primary insomnia F51.01 Active 6140546 Problem Other male erectile dysfunction N52.8 Active 867860658 Problem Morbid (severe) obesity due to excess calories E66.01 Active 118378732 Problem Sarcoidosis D86.9 Active 68336983 Problem Blindness and low vision H54.10 Active 315554733 Problem Problems related to [facility] Z65.2 Active 101059709557032 Problem Myocarditis, unspecified chronicity, 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 Active 08516669 Problem Chronic pain G89.29 Active 02005995 Problem 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 Active 413392095 Problem Body mass index (BMI) of 40.0-44.9 in adult Z68.41 Active 496258756 Problem Chronic pain syndrome G89.4 Active 147353985 Problem Migraine without aura and without status migrainosus, not intractable G43.009 Active 351045793 Problem Anxiety F41.9 Active 99759228 Problem Major depressive disorder, recurrent, moderate F33.1 Active 75317914 Problem HTN (hypertension) I10 Active 44138485 Problem Chronic tension headaches G44.229 Active 020060072 Problem CAD (coronary artery disease) I25.10 Active 45869385 Problem Post-traumatic stress disorder, chronic F43.12 Active 980140026 Problem Hyperlipidemia E78.5 Active 87423937 Problem Open-angle glaucoma of both eyes H40.10X0 Active 78296896 Problem Environmental allergies Z91.09 Active 795224575 Problem Sleep apnea, obstructive G47.33 Active 04807352 Problem Mitral valve prolapse I34.1 Active 805027220 Problem Arrhythmia as indication for cardiac pacemaker replacement I49.9 Active 95570393 ALLERGIES No Information ENCOUNTERS Encounter Location Date Diagnosis [facility] [address], [place] [address] Oct, [facility] [id number] [place] [address] 87122- 9398 Oct, [facility] [address], [place] [address] Sep, [facility] [id number] [place] [address] 00666- 6431 Sep, [facility] [id number] [place] [address] 48408- 0027 Sep, [facility] [id number] [place] [address] 62595- 6800 Aug, Post-traumatic stress disorder, unspecified F43.10 ; Major depressive disorder, recurrent, moderate F33.1 and Problems related to [facility] Z65.2 [place] [id number] [place] [address] 26600- 3314 11 Aug, 2017 [facility] [id number] [place] [address] 59254- 4479 Aug, Left leg pain M79.605 [place] [address] [place] [address] 29273- 0547 26 Jul, 2017 Post-traumatic stress disorder, chronic F43.12 ; Anxiety F41.9 ; Problems related to [facility] Z65.2 and BMI 40.0-44.9, adult Z68.41 [facility] [address] [address] Jul, HTN (hypertension) I10 ; Body mass index (BMI) of 40.0-44.9 in adult Z68.41 and Acute swimmer''s ear of both sides H60.333 [place] [address], [place] [address] 9246 Jul, Glaucoma H40.9 [place] [id number] [place] [address] 20048- 7727 Jul, [facility] [id number] [place] [address] 28529- 8847 Jul, Sarcoidosis D86.9 [facility] [id number] [place] [address] 39953- 1153 Jul, Left leg pain M79.605 [facility] [address] 61819- 8012 Jul, Sarcoidosis D86.9 [facility] [id number] [place] [address] 74777- 5696 Jul, Post-traumatic stress disorder, unspecified F43.10 ; Major depressive disorder, recurrent, moderate F33.1 and Problems related to [facility] Z65.2 [facility] [id number] [place] [address] 58928- 8354 June, [facility] [id number] [place] [address] 19607 -3141 June, Sore throat J02.9 and BMI 40.0-44.9, adult Z68.41 [facility] [id number] [place] [address] 96560- 4526 June, [facility] [id number] [place] [address] 01003- 2037 June, [facility] [id number] [place] [address] 65406- 2623 June, [facility] [id number] [place] [address] 83538- 5068 June, Left leg pain M79.605 [facility] [id number] [place] [address] 60630- 3802 June, Sarcoidosis D86.9 [facility] [address] [address] 8947 June, [facility] [address], [place] [address]- 6622 June, [facility] [id number] [place] [address] 79351- 7993 June, Left leg pain M79.605 [facility] [id number] [place] [address] 82271- 0016 May, [facility] [id number] [place] [address] 84412- 3199 May, [facility] [id number] [place] [address] 06005- 0012 May, [facility] [id number] [place] [address] 58569- 2716 May, Left leg pain M79.605 [facility] [address] [place] [address] 21704- 2951 May, Post-traumatic stress disorder, unspecified F43.10 ; Major depressive disorder, recurrent, moderate F33.1 and Problems related to [facility] Z65.2 [place] [address] [place] [address] 69175- 0762 May, Chronic pain G89.29 ; Anxiety F41.9 ; Chest pain, unspecified type R07.9 and BMI 40.0-44.9, adult Z68.41 [place] [address] [place] [address] 47804- 9634 Apr, [facility] [address] [place] [address] 40190- 1267 Apr, Left leg pain M79.605 [facility] [id number] [place] [address] 38577- 6436 Apr, Post-traumatic stress disorder, unspecified F43.10 ; Problems related to [facility] Z65.2 ; Anxiety F41.9 and BMI 40.0-44.9 , adult Z68.41 [facility] [address] 59612- 1637 22 Apr, 2017 [place] [address] 08449- 8737 19 Apr, 2017 Left leg pain M79.605 [place] [address] 27537- 5755 13 Apr, 2017 Post-traumatic stress disorder, unspecified F43.10 ; Major depressive disorder, recurrent, moderate F33.1 and Problems related to [facility] Z65.2 [place] [address] 64791- 7456 12 Apr, 2017 [place] [address] 80746- 8191 12 Apr, 2017 Chronic pain G89.29 ; 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 ; Morbid (severe) obesity due to excess calories E66.01 ; Anxiety F41.9 and BMI 40.0-44.9, adult Z68.41 [facility] [place] [address] 36483 -3993 10 Apr, 2017 Sore throat J02.9 and BMI 40.0-44.9, adult Z68.41 [place] [address] 71552- 3172 02 Apr, 2017 Left leg pain M79.605 [facility] [address] [id number] Mar, Dental examination Z01.20 [place] [address] 94580- 5839 Mar, [facility] [address] 03559 -8135 20 Mar, 2017 Cough R05 ; Viral gastroenteritis A08.4 and BMI 40.0-44.9, adult Z68.41 [place] [address] 67117- 0866 19 Mar, 2017 Left leg pain M79.605 [place] [address] [place] [address] 05517- 5252 Mar, Post-traumatic stress disorder, unspecified F43.10 ; Major depressive disorder, recurrent, moderate F33.1 and Problems related to [facility] Z65.2 [place] [id number] [place] [address] 69145- 8521 Feb, Left leg pain M79.605 [place] [id number] [place] [address] 66361- 8671 Feb, [place] [id number] [place] [address] 50653- 1715 Feb, BMI 40.0-44.9, adult Z68.41 ; Chronic pain syndrome G89.4 ; Migraine without aura and without status migrainosus, not intractable G43.009 ; Mitral valve prolapse I34.1 and 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 [place] [id number] [place] [address] 36613- 3434 Feb, Post-traumatic stress disorder, chronic F43.12 ; Anxiety F41.9 ; Problems related to [facility] Z65.2 and BMI 40.0-44.9, adult Z68.41 [place] [id number] [place] [address] 46382- 3272 Feb, Post-traumatic stress disorder, unspecified F43.10 ; Major depressive disorder, recurrent, moderate F33.1 and Problems related to [facility] Z65.2 [place] [address] [place] [address] 98195- 7565 Feb, Left leg pain M79.605 [place] [id number] [place] [address] 35634- 8201 Jan, Post-traumatic stress disorder, unspecified F43.10 ; Major depressive disorder, recurrent, moderate F33.1 and Problems related to [facility] Z65.2 [place] [id number] [place] [address] 49214- 6351 Jan, [facility] [address], [place] [address]- 1199 Jan, [facility] [address] [place] [address] 90409- 6966 Jan, Anxiety F41.9 [facility] [address], [place] [address]- 9565 Jan, Left leg pain M79.605 [facility] [address] [place] [address] 91952- 5848 Dec, Left leg pain M79.605 [facility] [address] [place] [address] 00088- 1112 Dec, [facility] [address] [place] [address] 66907- 8305 Dec, Post-traumatic stress disorder, unspecified F43.10 ; Major depressive disorder, recurrent, moderate F33.1 and Problems related to release [facility] Z65.2 [facility] [address], [place] [address]- 6969 31 Nov, 2016 Chronic pain G89.29 and Anxiety F41.9 [facility] [address], [place] [address]- 5095 24 Nov, 2016 Chronic pain G89.29 and Anxiety F41.9 [place] [address], [place] [address]- 6588 16 Nov, 2016 Post-traumatic stress disorder, unspecified F43.10 ; Major depressive disorder, recurrent, moderate F33.1 and Problems related to [facility] Z65.2 [place] [address] [address]- 6374 09 Nov, 2016 Other abnormal findings in specimens from other organs, systems and tissues R89.8 ; Other male erectile dysfunction N52.8 ; Body mass index (BMI) of 40.0-44.9 in adult Z68.41 and Morbid (severe) obesity due to excess calories E66.01 [place] [address], [place] [address]- 4953 02 Nov, 2016 Post-traumatic stress disorder, unspecified F43.10 ; Major depressive disorder, recurrent, moderate F33.1 and Problems related to release [facility] Z65.2 [facility] [address] [place] [address] 800211983 29 Oct, 2016 Dental examination Z01.20 [place] [id number] [place] [address] 05718- 6443 Oct, [place] [id number] [place] [address] 39141- 5057 Oct, Encounter for immunization Z23 [place] [id number] [place] [address] 14425- 1610 Oct, Chronic pain G89.29 ; Anxiety F41.9 ; Arrhythmia as indication for cardiac pacemaker replacement I49.9 and Glaucoma H40.9 [place] [id number] [place] [address] 55712- 0664 Oct, Anxiety F41.9 ; Post-traumatic stress disorder, chronic F43.12 and Problems related to release [facility] Z65.2 [place] [address] [place] [address] 13862- 2592 Oct, Post-traumatic stress disorder, unspecified F43.10 ; Major depressive disorder, recurrent, moderate F33.1 and Problems related to release from [facility] Z65.2 [facility] [address] [place] [address] 47612- 3648 Sep, Chronic pain G89.29 and Anxiety F41.9 [place] [id number] [place] [address] 90439- 4511 Sep, Post-traumatic stress disorder, unspecified F43.10 ; Major depressive disorder, recurrent, moderate F33.1 and Problems related to release [facility] Z65.2 [place] [id number] [place] [address] 53112- 1533 Sep, Post-traumatic stress disorder, unspecified F43.10 ; Major depressive disorder, recurrent, moderate F33.1 and Problems related to release [facility] Z65.2 [place] [address] [address]- 0329 Sep, Chronic pain G89.29 [place] [address], [place] [address]- 1558 Aug, Dental caries, unspecified K02.9 [place] [address] [address]- 2107 Aug, Sleep apnea, obstructive G47.33 ; Obesity E66.9 ; Chronic pain G89.29 ; HTN (hypertension) I10 ; Major depressive disorder, recurrent, moderate F33.1 ; Anxiety F41.9 ; Chronic tension headaches G44.229 ; Mitral valve prolapse I34.1 ; Arrhythmia as indication for cardiac pacemaker replacement I49.9 ; Dental caries, unspecified K02.9 ; Primary insomnia F51.01 and Hyperlipidemia E78.5 [place] [address] [place] [address] 00621- 3358 Aug, Post-traumatic stress disorder, unspecified F43.10 ; Major depressive disorder, recurrent, moderate F33.1 and Problems related to release [facility] Z65.2 [place] [address] [address]- 6193 Aug, Dental examination Z01.20 [facility] [id number] [place] [address] [id number] Aug, Dental examination Z01.20 [facility] [address], [place] [address]- 0775 Aug, Post-traumatic stress disorder, unspecified F43.10 ; Major depressive disorder, recurrent, moderate F33.1 and Problems related to release [facility] Z65.2 [place] [address] [address]- 6188 Aug, Chronic pain G89.29 and Primary insomnia F51.01 [place] [address] [place] [address] 67924- 9680 Jul, [place] [id number] [place] [address] 82862- 2420 Jul, [place] [id number] [place] [address] 31881- 4469 Jul, Nausea R11.0 [place] [id number] [place] [address] 32711- 5553 Jul, Arrhythmia as indication for cardiac pacemaker replacement I49.9 [place] [id number] [place] [address] 10274- 2409 Jul, Post-traumatic stress disorder, unspecified F43.10 ; Major depressive disorder, recurrent, moderate F33.1 and Problems related to release [facility] Z65.2 [place] [id number] [place] [address] 37717- 8702 Jul, Anxiety F41.9 [place] [id number] [place] [address] 96393- 8837 08 Jul, 2016 Chronic pain G89.29 [place] [id number] [place] [address] 61279- 0223 02 Jul, 2016 Sleep apnea, obstructive G47.33 ; Hyperlipidemia E78.5 ; Chronic pain G89.29 ; Blindness and low vision H54.10 ; Major depressive disorder, recurrent, moderate F33.1 ; Anxiety F41.9 ; Mitral valve prolapse I34.1 ; Arrhythmia as indication for cardiac pacemaker replacement I49.9 ; Primary insomnia F51.01 ; Bilateral headaches R51 and Environmental allergies Z91.09 [place] [id number] [place] [address] 09055- 8039 Jul, Post-traumatic stress disorder, unspecified F43.10 ; Major depressive disorder, recurrent, moderate F33.1 and Problems related to release [facility] Z65.2 [place] [id number] [place] [address] 67157- 2900 June, Post-traumatic stress disorder, chronic F43.12 ; Anxiety F41.9 ; Problems related to [facility] Z65.2 ; Sleep apnea, obstructive G47.33 and Primary insomnia F51.01 [place] [address], [place] [address]- 1503 June, [facility] [id number] [place] [address] 66130- 0553 June, [facility] [id number] [place] [address] 39061- 5373 June, [place] [id number] [place] [address] 03772- 3506 June, Chronic pain G89.29 [place] [id number] [place] [address] 21973- 8577 June, Chronic pain G89.29 [place] [id number] [place] [address] 93362- 4039 June, Lipoma of left lower extremity D17.24 ; Open wound T14.8 and Swelling of left lower extremity M79.89 [place] [address] [place] [address] 81191- 5706 June, Post-traumatic stress disorder, unspecified F43.10 ; Major depressive disorder, recurrent, moderate F33.1 and Problems related to [facility] Z65.2 [place] [address], [place] [address]- 0103 May, Lipoma of left lower extremity D17.24 ; Major depressive disorder, recurrent, moderate F33.1 ; Sleep apnea, obstructive G47.33 ; Hyperlipidemia E78.5 ; Obesity E66.9 ; HTN (hypertension) I10 ; Glaucoma H40.9 ; CAD (coronary artery disease) I25.10 ; Chronic tension headaches G44.229 ; Chronic pain G89.29 ; Anxiety F41.9 ; Nausea R11.0 and Primary insomnia F51.01 [place] [address] [place] [address] 84363- 5049 May, [place] [address] [place] [address] 94532- 9490 May, Chronic pain G89.29 [place] [id number] [place] [address] 71946- 2548 May, [place] [id number] [place] [address] 47062- 8134 31 Apr, 2016 Post-traumatic stress disorder, unspecified F43.10 ; Major depressive disorder, recurrent, moderate F33.1 and Problems related to [facility] Z65.2 [place] [id number] [place] [address] 42848- 0448 28 Apr, 2016 Primary insomnia F51.01 ; Post-traumatic stress disorder, chronic F43.12 and Problems related to release [facility] Z65.2 [place] [id number] [place] [address] 44186- 7768 17 Apr, 2016 Post-traumatic stress disorder, unspecified F43.10 ; Major depressive disorder, recurrent, moderate F33.1 and Problems related to release [facility] Z65.2 [place] [id number] [place] [address] 87609- 3455 16 Apr, 2016 [place] [id number] [place] [address] 29616- 9189 16 Apr, 2016 Sleep apnea, obstructive G47.33 ; Chronic pain G89.29 ; HTN (hypertension) I10 ; Mitral valve prolapse I34.1 ; Shoulder pain, left M25.512 ; Arrhythmia as indication for cardiac pacemaker replacement I49.9 ; Glaucoma H40.9 ; Bilateral headaches R51 ; Environmental allergies Z91.09 ; Primary insomnia F51.01 and Nausea R11.0 [place] [id number] [place] [address] 27262- 9047 15 Apr, 2016 [place] [id number] [place] [address] 11321- 1573 Apr, [place] [address] [address]- 2046 Apr, Post-traumatic stress disorder, unspecified F43.10 ; Major depressive disorder, recurrent, moderate F33.1 and Problems related to [facility] Z65.2 [place] [id number] [place] [address] 52639- 1471 Apr, HTN (hypertension) I10 [place] [id number] [place] [address] 43593- 7059 Apr, HTN (hypertension) I10 [place] [id number] [place] [address] 86059- 1839 Mar, Chronic pain G89.29 ; Primary insomnia F51.01 and Problems related to [facility] Z65.2 [place] [id number] [place] [address] 63344- 2221 Mar, Post-traumatic stress disorder, unspecified F43.10 ; Major depressive disorder, recurrent, moderate F33.1 and Problems related to [facility] Z65.2 [place] [id number] [place] [address] 71007- 8238 Feb, Post-traumatic stress disorder, unspecified F43.10 ; Major depressive disorder, recurrent, moderate F33.1 and Problems related to [facility] Z65.2 [place] [address] [place] [address] 00846- 4456 Feb, Chronic tension headaches G44.229 [place] [id number] [place] [address] 67572- 5845 Feb, Sleep apnea, obstructive G47.33 ; Obesity [...] pacemaker replacement I49.9 and Primary insomnia F51.01 [facility] [id number] [place] [address] 84247- 1192 17 Feb, 2016 Post-traumatic stress disorder, unspecified F43.10 and Chronic pain G89.29 [facility] [id number] [place] [address] 15711- 1847 13 Feb, 2016 [facility] [id number] [place] [address] [id number] Feb, Dental caries K02.9 [facility] [id number] [place] [address] 50128- 0268 Feb, [place] [id number] [place] [address] 46211- 3208 Feb, Post-traumatic stress disorder, unspecified F43.10 ; Major depressive disorder, recurrent, moderate F33.1 and Problems related [facility] Z65.2 [place] [id number] [place] [address] 40060- 7214 20 Jan, 2016 Sleep apnea, obstructive G47.33 and Chronic pain G89.29 [place] [id number] [place] [address] 62916- 3690 Jan, [place] [id number] [place] [address] 49942- 2951 Jan, Dental examination Z01.20 [facility] [id number] [place] [address] 23007- 6577 Jan, [facility] [id number] [place] [address] 07779- 7499 Jan, [place] [id number] [place] [address] 18571- 8672 Dec, Post-traumatic stress disorder, unspecified F43.10 ; Major depressive disorder, recurrent, moderate F33.1 and Problems related to [facility] Z65.2 [facility] [id number] [place] [address] 67898- 8406 Dec, Encounter for immunization Z23 ; Problems related to release [facility] Z65.2 ; Sleep apnea, obstructive G47.33 and Post-traumatic stress disorder, chronic F43.12 [facility] [id number] [place] [address] 23039- 1020 Dec, Sleep apnea, obstructive G47.33 ; Hyperlipidemia E78.5 ; Chronic pain G89.29 ; Glaucoma H40.9 ; HTN (hypertension) I10 ; Post-traumatic stress disorder, unspecified F43.10 ; Anxiety F41.9 ; Chronic tension headaches G44.229 ; Mitral valve prolapse I34.1 and CAD (coronary artery disease) I25.10 [facility] [id number] [place] [address] 68541- 6742 Dec, Post-traumatic stress disorder, unspecified F43.10 ; Major depressive disorder, recurrent, moderate F33.1 and Problems related to [facility] Z65.2 [facility] [id number] [place] [address] 14440- 0853 Nov, Chronic pain G89.29 [facility] [id number] [place] [address] 24254- 3645 Nov, Post-traumatic stress disorder, unspecified F43.10 ; Major depressive disorder, recurrent, moderate F33.1 and Problems related to [facility] Z65.2 [facility] [id number] [place] [address] 35392- 7902 Oct, [facility] [id number] [place] [address] 43540- 6871 Oct, [facility] [id number] [place] [address] 34323- 3331 16 Oct, 2015 Post-traumatic stress disorder, unspecified F43.10 ; Major depressive disorder, recurrent, moderate F33.1 and Problems related to [facility] Z65.2 [facility] [id number] [place] [address] 66665- 0127 Oct, [facility] [id number] [place] [address] 03301- 1054 Oct, Environmental allergies Z91.09 ; Cough R05 and Open-angle glaucoma of both eyes H40.10X0 [facility] [id number] [place] [address] 99441- 1873 Sep, [facility] [id number] [place] [address] 97100- 6233 Sep, Post-traumatic stress disorder, unspecified F43.10 ; Major depressive disorder, recurrent, moderate F33.1 and Problems related to [facility] Z65.2 [facility] [id number] [place] [address] 56498- 3668 Sep, Chronic pain G89.29 [facility] [id number] [place] [address] 10490- 6242 Sep, Other chronic pain G89.29 ; Pain in right shoulder M25.511 and Pain in left shoulder M25.512 [facility] [id number] [place] [address] 84912- 3617 Sep, [facility] [id number] [place] [address] 06205- 1457 Sep, [facility] [id number] [place] [address] 53492- 6554 Sep, [facility] [id number] [place] [address] [id number] Aug, Dental examination Z01.20 [facility] [id number] [place] [address] 10648- 9496 Aug, Post-traumatic stress disorder, unspecified F43.10 ; Open- angle glaucoma of both eyes H40.10X0 and Problems related to [facility] Z65.2 [facility] [id number] [place] [address] 24283- 0694 Aug, [facility] [id number] [place] [address] 56014- 5945 Aug, Sleep apnea, obstructive G47.33 ; Obesity E66.9 ; Hyperlipidemia E78.5 ; Bilateral headaches R51 ; HTN (hypertension) I10 ; Post- traumatic stress disorder, unspecified F43.10 ; Anxiety F41.9 ; Neuropathy G62.9 ; Glaucoma H40.9 and Chronic pain G89.29 [facility] [address] [id number] Aug, Encounter for dental examination Z01.20 [facility] [id number] [place] [address] 20079- 4605 Aug, Post-traumatic stress disorder, unspecified F43.10 ; Major depressive disorder, recurrent, moderate F33.1 and Problems related to [facility] Z65.2 [facility] [id number] [place] [address] 32599- 6049 Aug, [facility] [id number] [place] [address] 57707- 1193 Jul, [facility] [id number] [place] [address] 63267- 8615 Jul, Post-traumatic stress disorder, unspecified F43.10 and Major depressive disorder, recurrent, moderate F33.1 [facility] [address] [address]- 7255 Jul, [facility] [address] [address]- 9252 Jul, [facility] [id number] [place] [address] 60121- 6580 Jul, Chronic pain G89.29 [facility] [id number] [place] [address] 12870- 1533 June, Post-traumatic stress disorder, unspecified F43.10 and Major depressive disorder, recurrent, moderate F33.1 [facility] [address] [address]- 2628 June, [facility] [id number] [place] [address] 96778- 4253 June, Chronic pain G89.29 [facility] [id number] [place] [address] 90858- 4897 June, Post-traumatic stress disorder, unspecified F43.10 and Major depressive disorder, recurrent, moderate F33.1 [facility] [id number] [place] [address] 31193- 6192 May, Post-traumatic stress disorder, unspecified F43.10 and Major depressive disorder, recurrent, moderate F33.1 [facility] [id number] [place] [address] 49946- 0078 May, [facility] [id number] [place] [address] 78283- 0152 May, [facility] [id number] [place] [address] 18347- 6469 May, [facility] [id number] [place] [address] 45008- 7033 Apr, [facility] [id number] [place] [address] 32979- 4475 Apr, Post-traumatic stress disorder, unspecified F43.10 and Sleep apnea, obstructive G47.33 [facility] [id number] [place] [address] 74143- 6505 Apr, [facility] [id number] [place] [address] 14352- 0850 Apr, Shoulder pain, left M25.512 [facility] [id number] [place] [address] 34239- 4437 Apr, Post-traumatic stress disorder, unspecified F43.10 and Major depressive disorder, recurrent, moderate F33.1 [facility] [id number] [place] [address] 01529- 4759 Apr, [facility] [id number] [place] [id number] 2546 Apr, [facility] [address], [place] [address]- 6015 Apr, [facility] [id number] [place] [address] 31817- 0131 Apr, Left shoulder pain M25.512 [facility] [id number] [place] [address] 22428- 8085 Mar, [facility] [id number] [place] [address] 08336- 5421 Mar, [facility] [id number] [place] [address] 17156- 4988 Mar, [facility] [id number] [place] [address] 20245- 3285 Mar, Sleep apnea, obstructive G47.33 ; Obesity E66.9 ; Chronic pain G89.29 ; Hyperlipidemia E78.5 ; HTN (hypertension) I10 ; Blindness and low vision H54.10 ; Major depressive disorder, recurrent, moderate F33.1 and Anxiety F41.9 [facility] [id number] [place] [address] 68975- 9663 Mar, [facility] [id number] [place] [address] 38831- 8490 Mar, Post-traumatic stress disorder, unspecified F43.10 and Major depressive disorder, recurrent, moderate F33.1 [facility] [id number] [place] [address] 75390- 9479 Mar, [facility] [id number] [place] [address] 67643- 8731 04 Mar, 2015 HTN (hypertension) I10 ; Blindness and low vision H54.10 ; Obesity E66.9 ; Hyperlipidemia E78.5 ; Glaucoma H40.9 ; Chronic pain G89.29 and CAD (coronary artery disease) I25.10 [facility] [id number] [place] [address] 33685- 1955 Feb, [facility] [id number] [place] [address] 51242- 3094 Feb, Post-traumatic stress disorder, unspecified F43.10 ; Obesity E66.9 ; Sleep apnea, obstructive G47.33 and Open-angle glaucoma of both eyes H40.10X0 [facility] [id number] [place] [address] 13224- 4433 Feb, Post-traumatic stress disorder, unspecified F43.10 and Major depressive disorder, recurrent, moderate F33.1 [facility] [id number] [place] [address] 78104- 9197 Feb, [facility] [id number] [place] [address] 81445- 5716 Feb, [facility] [id number] [place] [address] 15188- 9365 Feb, HTN (hypertension) I10 ; Post-traumatic stress disorder, unspecified F43.10 ; Blindness and low vision H54.10 ; Obesity E66.9 ; Hyperlipidemia E78.5 ; Chronic pain G89.29 ; Glaucoma H40.9 ; Mitral valve prolapse I34.1 and Bilateral headaches R51 [facility] [id number] [place] [address] 19086- 0885 Feb, [facility] [id number] [place] [address] 07840- 7039 Feb, Post-traumatic stress disorder, unspecified F43.10 and Major depressive disorder, recurrent, moderate F33.1 [facility] [id number] [place] [address] 49210- 8715 Feb, [facility] [id number] [place] [address] 75158- 0736 Feb, [facility] [id number] [place] [address] 83441- 4221 Jan, [facility] [id number] [place] [address] 97063- 8695 Jan, [facility] [id number] [place] [address] 31261- 1929 Jan, Obesity E66.9 ; HTN (hypertension) I10 ; Blindness and low vision H54.10 ; Major depressive disorder, recurrent, moderate F33.1 ; Glaucoma H40.9 ; Hyperlipidemia E78.5 ; Sleep apnea, obstructive G47.33 ; Chronic pain G89.29 ; Anxiety F41.9 ; Chronic tension headaches G44.229 and Cough R05 [facility] [id number] [place] [address] 86542- 0003 Jan, [address] 38846- 2209 Jan, [address] 37335- 1278 Jan, Post-traumatic stress disorder, unspecified F43.10 ; Obesity E66.9 ; Sleep apnea, obstructive G47.33 and Open-angle glaucoma of both eyes H40.10X0 [address] 51257- 0436 Jan, [facility] [id number] [place] [address] 83031- 6036 Jan, Post-traumatic stress disorder, unspecified F43.10 and Major depressive disorder, recurrent, moderate F33.1 [facility] [id number] [place] [address] 16470- 8298 Dec, [facility] [id number] [place] [address] 60755- 1047 Dec, Sleep apnea, obstructive G47.33 ; Obesity E66.9 ; Hyperlipidemia E78.5 ; Glaucoma H40.9 ; Chronic pain G89.29 ; HTN (hypertension ) I10 ; Blindness and low vision H54.10 ; Anxiety F41.9 and CAD (coronary artery disease) I25.[address] [place] [address]- 0519 Nov, [facility] [id number] [place] [address] 61924- 9920 Nov, [facility] [id number] [place] [address] 88175- 2009 Nov, [facility] [id number] [place] [address] 73669- 8235 Nov, [facility] [id number] [place] [address] 33111- 1995 Nov, [facility] [address] 09680- 9505 Nov, Encounter for immunization Z23 ; Sleep apnea, obstructive G47.33 ; Obesity E66.9 ; Hyperlipidemia E78.5 ; Glaucoma H40.9 ; Chronic pain G89.29 ; Anxiety F41.9 ; Chronic tension headaches G44.229 and HTN (hypertension ) I10 [facility] [id number] [place] [address] 79021- 9473 Nov, [facility] [id number] [place] [address] 87817- 8124 Nov, [facility] [id number] [place] [address] 14708- 6962 06 Nov, 2014 Dizziness R42 [facility] [id number] [place] [address] 91272- 2440 Nov, [facility] [id number] [place] [address] 51042- 9478 29 Oct, 2014 [facility] [id number] [place] [address] 93802- 2837 28 Oct, 2014 [facility] [id number] [place] [address] 24410- 3708 Oct, [facility] [id number] [place] [address] 54399- 5732 Oct, [facility] [address], [place] [address]- 9369 Oct, Dizziness 780.4 ; Essential hypertension 401.9 ; Obesity 278.00 ; Hyperlipidemia 272.4 ; Chronic pain 338.29 ; Glaucoma 365.9 and Anxiety 300.00 [facility] [id number] [place] [address] 41121- 8749 Oct, Essential hypertension 401.9 ; Hyperlipidemia 272.4 ; Glaucoma 365.9 ; Obesity 278.00 ; Chronic pain 338.29 and Allergy to insects V15.06 [facility] [id number] [place] [address] 02373- 0220 Sep, [facility] [id number] [place] [address] 81596- 8906 Sep, [facility] [id number] [place] [address] 88858- 6240 Sep, [facility] [id number] [place] [address] 85450- 1314 Sep, [facility] [id number] [place] [address] 19384- 9994 Aug, Essential hypertension 401.9 ; Obesity 278.00 ; Hyperlipidemia 272.4 ; Glaucoma 365.9 ; Lipoma 214.9 ; Mitral valve prolapse 424.0 ; Angina at rest 413.9 ; Lymphedema 457.1 and Chronic pain 338.29 IMMUNIZATIONS No Known Immunizations SOCIAL HISTORY Never Assessed REASON FOR VISIT Requests return call PLAN OF CARE VITAL SIGNS MEDICATIONS Unknown [...]
--- OUTSIDE RECORDS SUMMARY | 2018-02-04 14:59 | XMS REPORT ---
Author Author ALENA ÁLVAREZ Organization [facility] Address [address] [place] [address] Care Team Providers Care Refrigeration Mechanic Name Role Phone ALENA ÁLVAREZ Unavailable PROBLEMS Type Condition ICD9-CM Code NAH30-OZ Code Onset Dates Condition Status SNOMED Code Problem Primary insomnia F51.01 Active 0454620 Problem Other male erectile dysfunction N52.8 Active 776180641 Problem Morbid (severe) obesity due to excess calories E66.01 Active 523388221 Problem Sarcoidosis D86.9 Active 18253785 Problem Blindness and low vision H54.10 Active 987387409 Problem Problems related to release from fdc Z65.2 Active 521520585746071 Problem Myocarditis, unspecified chronicity, 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 Active 62674571 Problem Chronic pain G89.29 Active 03659969 Problem 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 Active 982359588 Problem Body mass index (BMI) of 40.0-44.9 in adult Z68.41 Active 544181813 Problem Chronic pain syndrome G89.4 Active 691886713 Problem Migraine without aura and without status migrainosus, not intractable G43.009 Active 006772028 Problem Anxiety F41.9 Active 83861664 Problem Major depressive disorder, recurrent, moderate F33.1 Active 75041002 Problem HTN (hypertension) I10 Active 25656679 Problem Chronic tension headaches G44.229 Active 323459811 Problem CAD (coronary artery disease) I25.10 Active 45319822 Problem Post-traumatic stress disorder, chronic F43.12 Active 651673025 Problem Hyperlipidemia E78.5 Active 38769930 Problem Open-angle glaucoma of both eyes H40.10X0 Active 03834553 Problem Environmental allergies Z91.09 Active 456919155 Problem Sleep apnea, obstructive G47.33 Active 79749018 Problem Mitral valve prolapse I34.1 Active 013109450 Problem Arrhythmia as indication for cardiac pacemaker replacement I49.9 Active 90777028 ALLERGIES No Information ENCOUNTERS Encounter Location Date Diagnosis [facility] [address] [address] Oct, [facility] [place] [id number] [place] [address] 87087- 3867 Sep, [facility] [place] [id number] [place] [address] 95816- 9196 Aug, [facility] [place] [id number] [place] [address] 49771- 8324 Aug, [facility] [place] [id number] [place] [address] 72711- 2246 Aug, Left leg pain M79.605 [facility] [id number] [place] [address] 20471- 8308 26 Jul, 2017 Post-traumatic stress disorder, chronic F43.12 ; Anxiety F41.9 ; Problems related to release from fdc Z65.2 and BMI 40.0-44.9, adult Z68.41 [facility] [id number] [place] [address] 66150- 5115 20 Jul, 2017 HTN (hypertension) I10 ; Body mass index (BMI) of 40.0-44.9 in adult Z68.41 and Acute swimmer''s ear of both sides H60.333 [facility] [id number] [place] [address] 28475- 5271 19 Jul, 2017 Glaucoma H40.9 [facility] [place] [id number] [place] [address] 25497- 4871 14 Jul, 2017 [facility] [place] [address] [place] [address] 39687- 4642 13 Jul, 2017 Sarcoidosis D86.9 [facility] [place] [id number] [place] [address] 03135- 7434 12 Jul, 2017 Left leg pain M79.605 [facility] [place] [id number] [place] [address] 01799- 5669 12 Jul, 2017 Sarcoidosis D86.9 [facility] [place] [id number] [address] Jul, Post-traumatic stress disorder, unspecified F43.10 ; Major depressive disorder, recurrent, moderate F33.1 and Problems related to release from fdc Z65.2 [facility] [place] [id number] [place] [address] 01646- 1225 June, [facility] [id number] [place] [address] 11002 -9410 June, Sore throat J02.9 and BMI 40.0-44.9, adult Z68.41 [facility] [place] [address] 37359- 1654 June, [facility] [place] [id number] [place] [address] 07722- 0172 June, [facility] [place] [id number] [place] [address] 99843- 7705 June, [facility] [id number] [place] [address] 77398- 7695 June, Left leg pain M79.605 [facility] [place] [id number] [place] [address] 96521- 7244 June, Sarcoidosis D86.9 [facility] [place] [id number] [place] [address] 29544- 2513 June, [facility] [id number] [place] [address] 36129- 8292 June, [facility] [place] [id number] [place] [address] 74028- 6155 June, Left leg pain M79.605 [facility] [place] [id number] [place] [address] 82101- 8426 May, [facility] [place] [id number] [place] [address] 17742- 7397 May, [facility] [place] [address] [address] May, [facility] [id number] [place] [address] 60137- 6986 May, Left leg pain M79.605 [facility] [address] [place] [address] 72134- 8073 May, Post-traumatic stress disorder, unspecified F43.10 ; Major depressive disorder, recurrent, moderate F33.1 and Problems related to release from fdc Z65.2 [facility] [address] [place] [address] 28676- 2615 May, Chronic pain G89.29 ; Anxiety F41.9 ; Chest pain, unspecified type R07.9 and BMI 40.0-44.9, adult Z68.41 [facility] [id number] [place] [address] 10059- 2570 30 Apr, 2017 [facility] [id number] [place] [address] 49419- 7447 Apr, Left leg pain M79.605 [facility] [id number] [place] [address] 06319- 3310 27 Apr, 2017 Post-traumatic stress disorder, unspecified F43.10 ; Problems related to release from fdc Z65.2 ; Anxiety F41.9 and BMI 40.0-44.9 , adult Z68.41 [facility] [address] [place] [address] 29244- 5404 Apr, [facility] [address] [place] [address] 96322- 2445 Apr, Left leg pain M79.605 [facility] [address] [place] [address] 53188- 0467 Apr, Post-traumatic stress disorder, unspecified F43.10 ; Major depressive disorder, recurrent, moderate F33.1 and Problems related to release from fdc Z65.2 [facility] [facility] [address] 45085- 4634 Apr, [facility] [address] 20040- 9011 12 Apr, 2017 Chronic pain G89.29 ; 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 ; Morbid (severe) obesity due to excess calories E66.01 ; Anxiety F41.9 and BMI 40.0-44.9, adult Z68.41 [facility] [address] [address] -[address]64 Apr, Sore throat J02.9 and BMI 40.0-44.9, adult Z68.[address] 93710- 9325 02 Apr, 2017 Left leg pain M79.605 [facility] [address] [id number] Mar, Dental examination Z01.20 [place] [address] 99343- 3091 Mar, [facility] [address] [address] 20 Mar, 2017 Cough R05 ; Viral gastroenteritis A08.4 and BMI 40.0-44.9, adult Z68.[address] 97470- 9409 Mar, Left leg pain M79.605 [facility] [address] 58272- 8476 06 Mar, 2017 Post-traumatic stress disorder, unspecified F43.10 ; Major depressive disorder, recurrent, moderate F33.1 and Problems related to release from fdc Z65.2 [facility] [address] 21771- 5316 Feb, Left leg pain M79.605 [facility] [facility] [address] 71309- 6922 Feb, [facility] [place] [id number] [place] [address] 26092- 0514 Feb, BMI 40.0-44.9, adult Z68.41 ; Chronic pain syndrome G89.4 ; Migraine without aura and without status migrainosus, not intractable G43.009 ; Mitral valve prolapse I34.1 and 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 [facility] [address] 57800- 7020 Feb, Post-traumatic stress disorder, chronic F43.12 ; Anxiety F41.9 ; Problems related to release from fdc Z65.2 and BMI 40.0-44.9, adult Z68.41 [facility] [id number] [place] [address] 70489- 8965 Feb, Post-traumatic stress disorder, unspecified F43.10 ; Major depressive disorder, recurrent, moderate F33.1 and Problems related to release from fdc Z65.2 [facility] [id number] [place] [address] 56064- 7852 Feb, Left leg pain M79.605 [facility] [facility] [address] 07266- 1229 Jan, Post-traumatic stress disorder, unspecified F43.10 ; Major depressive disorder, recurrent, moderate F33.1 and Problems related to release from fdc Z65.2 [facility] [id number] [place] [address] 94552- 5830 Jan, [facility] [id number] [place] [address] 26950- 1890 Jan, [facility] [id number] [place] [address] 21060- 8101 Jan, Anxiety F41.9 [facility] [id number] [place] [address] 03589- 1804 Jan, Left leg pain M79.605 [facility] [address] [place] [address]- 8147 Dec, Left leg pain M79.605 [facility] [place] [id number] [place] [address] 07991- 2958 Dec, [facility] [id number] [place] [address] 45182- 1314 Dec, Post-traumatic stress disorder, unspecified F43.10 ; Major depressive disorder, recurrent, moderate F33.1 and Problems related to release from fdc Z65.2 [facility] [id number] [place] [address] 72041- 0414 Nov, Chronic pain G89.29 and Anxiety F41.9 [facility] [id number] [place] [address] 89388- 3457 24 Nov, 2016 Chronic pain G89.29 and Anxiety F41.9 [facility] [address] 96074- 0705 16 Nov, 2016 Post-traumatic stress disorder, unspecified F43.10 ; Major depressive disorder, recurrent, moderate F33.1 and Problems related to release from fdc Z65.2 [facility] [place] [id number] [place] [address] 66919- 5574 09 Nov, 2016 Other abnormal findings in specimens from other organs, systems and tissues R89.8 ; Other male erectile dysfunction N52.8 ; Body mass index (BMI) of 40.0-44.9 in adult Z68.41 and Morbid (severe) obesity due to excess calories E66.01 [facility] [id number] [place] [address] 96628- 1819 02 Nov, 2016 Post-traumatic stress disorder, unspecified F43.10 ; Major depressive disorder, recurrent, moderate F33.1 and Problems related to release from fdc Z65.2 [facility] [address] [place] [address] [id number] Oct, Dental examination Z01.20 [facility] [place] [id number] [place] [address] 24675- 6792 Oct, [facility] [address] [place] [address] 40849- 5690 Oct, Encounter for immunization Z23 [facility] [id number] [place] [address] 06887- 8080 Oct, Chronic pain G89.29 ; Anxiety F41.9 ; Arrhythmia as indication for cardiac pacemaker replacement I49.9 and Glaucoma H40.9 [facility] [id number] [place] [address] 87271- 7297 Oct, Anxiety F41.9 ; Post-traumatic stress disorder, chronic F43.12 and Problems related to release from fdc Z65.2 [facility] [id number] [place] [address] 57097- 0485 Oct, Post-traumatic stress disorder, unspecified F43.10 ; Major depressive disorder, recurrent, moderate F33.1 and Problems related to release from fdc Z65.2 [facility] [id number] [place] [address] 02549- 8605 Sep, Chronic pain G89.29 and Anxiety F41.9 [facility] [id number] [place] [address] 55327- 6447 Sep, Post-traumatic stress disorder, unspecified F43.10 ; Major depressive disorder, recurrent, moderate F33.1 and Problems related to release from fdc Z65.2 [facility] [address] [place] [address] 78431- 8455 Sep, Post-traumatic stress disorder, unspecified F43.10 ; Major depressive disorder, recurrent, moderate F33.1 and Problems related to release from fdc Z65.2 [facility] [address] [place] [address] 73668- 6847 Sep, Chronic pain G89.29 [facility] [id number] [place] [address] 99404- 3581 Aug, Dental caries, unspecified K02.9 [place] [id number] [place] [address] 66353- 2904 Aug, Sleep apnea, obstructive G47.33 ; Obesity E66.9 ; Chronic pain G89.29 ; HTN (hypertension) I10 ; Major depressive disorder, recurrent, moderate F33.1 ; Anxiety F41.9 ; Chronic tension headaches G44.229 ; Mitral valve prolapse I34.1 ; Arrhythmia as indication for cardiac pacemaker replacement I49.9 ; Dental caries, unspecified K02.9 ; Primary insomnia F51.01 and Hyperlipidemia E78.5 [facility] [id number] [place] [address] 74114- 7271 Aug, Post-traumatic stress disorder, unspecified F43.10 ; Major depressive disorder, recurrent, moderate F33.1 and Problems related to release from fdc Z65.2 [place] [id number] [place] [address] 86130- 4851 Aug, Dental examination Z01.20 [facility] [id number] [place] [address] [id number] Aug, Dental examination Z01.20 [facility] [id number] [place] [address] 89519- 8697 Aug, Post-traumatic stress disorder, unspecified F43.10 ; Major depressive disorder, recurrent, moderate F33.1 and Problems related to release from fdc Z65.2 [facility] [id number] [place] [address] 98213- 8160 Aug, Chronic pain G89.29 and Primary insomnia F51.01 [facility] [id number] [place] [address] 48372- 4544 Jul, [facility] [facility] [address] 49697- 1969 Jul, [facility] [id number] [place] [address] 02011- 4087 Jul, Nausea R11.0 [place] [id number] [place] [address] 71406- 2937 Jul, Arrhythmia as indication for cardiac pacemaker replacement I49.9 [facility] [facility] [address] [place] [address] 87381- 7588 13 Jul, 2016 Post-traumatic stress disorder, unspecified F43.10 ; Major depressive disorder, recurrent, moderate F33.1 and Problems related to release from fdc Z65.2 [place] [id number] [place] [address] 36071- 1495 09 Jul, 2016 [address]xiety F41.[address] 00294- 8670 08 Jul, 2016 Chronic pain G89.[address] 86841- 4959 Jul, Sleep apnea, obstructive G47.33 ; Hyperlipidemia E78.5 ; Chronic pain G89.29 ; Blindness and low vision H54.10 ; Major depressive disorder, recurrent, moderate F33.1 ; Anxiety F41.9 ; Mitral valve prolapse I34.1 ; Arrhythmia as indication for cardiac pacemaker replacement I49.9 ; Primary insomnia F51.01 ; Bilateral headaches R51 and Environmental allergies Z91.09 [place] [id number] [place] [address] 98877- 3493 Jul, Post-traumatic stress disorder, unspecified F43.10 ; Major depressive disorder, recurrent, moderate F33.1 and Problems related to release from fdc Z65.2 [place] [id number] [place] [address] 61240- 5086 June, Post-traumatic stress disorder, chronic F43.12 ; Anxiety F41.9 ; Problems related to release from fdc Z65.2 ; Sleep apnea, obstructive G47.33 and Primary insomnia F51.01 [place] [id number] [place] [address] 04308- 0506 June, [place] [id number] [place] [address] 94168- 3276 June, [place] [id number] [place] [address] 59940- 9746 June, [facility] [facility] [id number] [place] [address] 05553- 0821 June, Chronic pain G89.29 [facility] [facility] [id number] [place] [address] 48121- 0757 June, Chronic pain G89.29 [facility] [id number] [place] [address] 07597- 2538 June, Lipoma of left lower extremity D17.24 ; Open wound T14.8 and Swelling of left lower extremity M79.[address] 33808- 9780 June, Post-traumatic stress disorder, unspecified F43.10 ; Major depressive disorder, recurrent, moderate F33.1 and Problems related to release from fdc Z65.2 [facility] [id number] [place] [address] 88430- 9073 May, Lipoma of left lower extremity D17.24 ; Major depressive disorder, recurrent, moderate F33.1 ; Sleep apnea, obstructive G47.33 ; Hyperlipidemia E78.5 ; Obesity E66.9 ; HTN (hypertension) I10 ; Glaucoma H40.9 ; CAD (coronary artery disease) I25.10 ; Chronic tension headaches G44.229 ; Chronic pain G89.29 ; Anxiety F41.9 ; Nausea R11.0 and Primary insomnia F51.01 [place] [address] [place] [address] 40867- 1510 May, [place] [address] [place] [address] 69145- 7869 May, Chronic pain G89.29 [place] [address] [place] [address] 62697- 8219 May, [place] [address] [place] [address] 47085- 2505 Apr, Post-traumatic stress disorder, unspecified F43.10 ; Major depressive disorder, recurrent, moderate F33.1 and Problems related to release from fdc Z65.2 [place] [id number] [place] [address] 77188- 1354 Apr, Primary insomnia F51.01 ; Post-traumatic stress disorder, chronic F43.12 and Problems related to release from fdc Z65.2 [facility] [id number] [place] [address] 76339- 2235 17 Apr, 2016 Post-traumatic stress disorder, unspecified F43.10 ; Major depressive disorder, recurrent, moderate F33.1 and Problems related to release from fdc Z65.2 [facility] [id number] [place] [address] 39905- 2506 16 Apr, 2016 [place] [id number] [place] [address] 83807- 0947 Apr, Sleep apnea, obstructive G47.33 ; Chronic pain G89.29 ; HTN (hypertension) I10 ; Mitral valve prolapse I34.1 ; Shoulder pain, left M25.512 ; Arrhythmia as indication for cardiac pacemaker replacement I49.9 ; Glaucoma H40.9 ; Bilateral headaches R51 ; Environmental allergies Z91.09 ; Primary insomnia F51.01 and Nausea R11.0 [place] [id number] [place] [address] 42573- 5484 Apr, [place] [id number] [place] [address] 20807- 7982 Apr, [place] [id number] [place] [address] 797865- 1680 Apr, Post-traumatic stress disorder, unspecified F43.10 ; Major depressive disorder, recurrent, moderate F33.1 and Problems related to release from fdc Z65.2 [facility] [id number] [place] [address] 50381- 0182 Apr, HTN (hypertension) I10 [place] [id number] [place] [address] 62163- 1198 Apr, HTN (hypertension) I10 [place] [address] [place] [address] 78943- 9932 14 Mar, 2016 Chronic pain G89.29 ; Primary insomnia F51.01 and Problems related to release from fdc Z65.2 [place] [id number] [place] [address] 89460- 8562 07 Mar, 2016 Post-traumatic stress disorder, unspecified F43.10 ; Major depressive disorder, recurrent, moderate F33.1 and Problems related to release from fdc Z65.2 [place] [id number] [place] [address] 67841- 4866 Feb, Post-traumatic stress disorder, unspecified F43.10 ; Major depressive disorder, recurrent, moderate F33.1 and Problems related to release from fdc Z65.2 [place] [id number] [place] [address] 32487- 3121 Feb, Chronic tension headaches G44.229 [place] [id number] [place] [address] 06265- 1417 Feb, Sleep apnea, obstructive G47.33 ; Obesity [...] pacemaker replacement I49.9 and Primary insomnia F51.01 [place] [address] [place] [address] 43422- 5207 17 Feb, 2016 Post-traumatic stress disorder, unspecified F43.10 and Chronic pain G89.29 [place] [id number] [place] [address] 27826- 5845 Feb, [facility] [address] [place] [address] [id number] Feb, Dental caries K02.9 [place] [address] [place] [id number] [place] [address] [phone]- [phone] Feb, [place] [id number] [place] [address] [phone]- 8691 Feb, Post-traumatic stress disorder, unspecified F43.10 ; Major depressive disorder, recurrent, moderate F33.1 and Problems related to release from fdc Z65.[address] [address] Jan, Sleep apnea, obstructive G47.33 and Chronic pain G89.[address] [address]- [address] Jan, [address] [address]- [address] Jan, Dental examination Z01.[address] [address]- [address] Jan, [place] [id number] [place] [phone] Jan, [address] [address]- [address] Dec, Post-traumatic stress disorder, unspecified F43.10 ; Major depressive disorder, recurrent, moderate F33.1 and Problems related to release from fdc Z65.2 [place] [id number] [place] [phone]- [phone] Dec, Encounter for immunization Z23 ; Problems related to release from fdc Z65.2 ; Sleep apnea, obstructive G47.33 and Post-traumatic stress disorder, chronic F43.12 [place] [id number] [place] [address] [phone]- 3503 Dec, Sleep apnea, obstructive G47.33 ; Hyperlipidemia E78.5 ; Chronic pain G89.29 ; Glaucoma H40.9 ; HTN (hypertension) I10 ; Post-traumatic stress disorder, unspecified F43.10 ; Anxiety F41.9 ; Chronic tension headaches G44.229 ; Mitral valve prolapse I34.1 and CAD (coronary artery disease) I25.10 [place] [address] [address]- [address] Dec, Post-traumatic stress disorder, unspecified F43.10 ; Major depressive disorder, recurrent, moderate F33.1 and Problems related to release from fdc Z65.2 [place] [address] [address]- [address] Nov, Chronic pain G89.29 [place] [address] 68[address]- [address] Nov, Post-traumatic stress disorder, unspecified F43.10 ; Major depressive disorder, recurrent, moderate F33.1 and Problems related to release from fdc Z65.2 [place] [address] [address]- 5699 Oct, [place] [address] 56037- 0910 23 Oct, 2015 [place] [address] 40936- 1524 16 Oct, 2015 Post-traumatic stress disorder, unspecified F43.10 ; Major depressive disorder, recurrent, moderate F33.1 and Problems related to release from fdc Z65.2 [place] [address] [place] [id number] [place] [address] 33995- 6942 08 Oct, 2015 [place] [address] 93859- 9023 07 Oct, 2015 Environmental allergies Z91.09 ; Cough R05 and Open-angle glaucoma of both eyes H40.10X0 [address] [address]- 4753 Sep, [place] [address] 43270- 3793 Sep, Post-traumatic stress disorder, unspecified F43.10 ; Major depressive disorder, recurrent, moderate F33.1 and Problems related to release from fdc Z65.2 [place] [address] [place] [id number] [place] [address] 96044- 3069 Sep, Chronic pain G89.29 [place] [address] [place] [id number] [place] [address] 60588- 2370 Sep, Pain in left shoulder M25.512 ; Pain in right shoulder M25.511 and Other chronic pain G89.29 [place] [address] 83829- 0199 Sep, [place] [address] 23272- 9409 Sep, [place] [address] 48413- 3653 Sep, [facility] [address] [id number] Aug, Dental examination Z01.20 [place] [address] [place] [id number] [place] [address] 68843- 2689 Aug, Post-traumatic stress disorder, unspecified F43.10 ; Open- angle glaucoma of both eyes H40.10X0 and Problems related to release from fdc Z65.2 [place] [address] [place] [id number] [place] [address] 77782- 1305 Aug, [place] [address] [place] [id number] [place] [address] 29121- 8757 Aug, Sleep apnea, obstructive G47.33 ; Obesity E66.9 ; Hyperlipidemia E78.5 ; Bilateral headaches R51 ; HTN (hypertension) I10 ; Post- traumatic stress disorder, unspecified F43.10 ; Anxiety F41.9 ; Neuropathy G62.9 ; Glaucoma H40.9 and Chronic pain G89.29 [facility] [address] [place] [id number] [place] [address] [id number] Aug, Encounter for dental examination Z01.20 [place] [address] [place] [id number] 2546 Aug, Post-traumatic stress disorder, unspecified F43.10 ; Major depressive disorder, recurrent, moderate F33.1 and Problems related to release from fdc Z65.2 [facility] [place] [id number] [address] Aug, [facility] [place] [id number] [address] 6492 Jul, [facility] [place] [address] [place] [id number] [place] [address] 83278- 4480 Jul, Post-traumatic stress disorder, unspecified F43.10 and Major depressive disorder, recurrent, moderate F33.1 [facility] [place] [id number] [place] [address] 11881- 5526 Jul, [facility] [place] [id number] [address] 0754 Jul, [facility] [place] [address] [place] [id number] [place] [address] 32385- 2760 Jul, Chronic pain G89.29 [facility] [place] [address] [place] [id number] [place] [address] 45297- 3847 June, Post-traumatic stress disorder, unspecified F43.10 and Major depressive disorder, recurrent, moderate F33.1 [facility] [place] [id number] [address] 9920 June, [facility] [place] [id number] [place] [address] 33259- 6619 June, Chronic pain G89.29 [facility] [place] [id number] [place] [address] 85057- 1208 June, Post-traumatic stress disorder, unspecified F43.10 and Major depressive disorder, recurrent, moderate F33.1 [facility] [place] [address] [id number] [address] 4078 May, Post-traumatic stress disorder, unspecified F43.10 and Major depressive disorder, recurrent, moderate F33.1 [facility] [place] [address] [address] 1510 May, [facility] [place] [address] [place] [id number] [place] [address] 65346- 3366 May, [facility] [place] [address] [place] [id number] [place] [address] 99344- 8746 May, [facility] [place] [address] [place] [id number] [place] [address] 16430- 6674 Apr, [facility] [place] [address] [place] [id number] [place] [address] 52495- 0080 Apr, Post-traumatic stress disorder, unspecified F43.10 and Sleep apnea, obstructive G47.33 [facility] [place] [address] [place] [id number] [place] [address] 00528- 0345 Apr, [facility] [place] [address] [place] [id number] [place] [address] 73371- 4240 Apr, Shoulder pain, left M25.512 [facility] [place] [address] [place] [id number] [place] [address] 28649- 5949 Apr, Post-traumatic stress disorder, unspecified F43.10 and Major depressive disorder, recurrent, moderate F33.1 [facility] [place] [address] [address]- 3886 Apr, [facility] [place] [address] [place] [id number] [place] [address] 79263- 3807 Apr, [facility] [place] [address] [place] [id number] [place] [address] 69042- 3200 Apr, [facility] [place] [address] [place] [id number] [place] [address] 24734- 7431 Apr, Left shoulder pain M25.512 [facility] [place] [id number] [place] [address] 73132- 8192 Mar, [facility] [place] [address] [place] [id number] [place] [address] 13526- 3567 Mar, [place] [address] [place] [id number] [place] [address] 00812- 2238 Mar, [place] [address] [place] [id number] [place] [address] 94290- 9576 Mar, Sleep apnea, obstructive G47.33 ; Obesity E66.9 ; Chronic pain G89.29 ; Hyperlipidemia E78.5 ; HTN (hypertension) I10 ; Blindness and low vision H54.10 ; Major depressive disorder, recurrent, moderate F33.1 and Anxiety F41.9 [place] [id number] [place] [address] 57608- 6858 Mar, [place] [address] [place] [id number] [place] [address] 68795- 2821 Mar, Post-traumatic stress disorder, unspecified F43.10 and Major depressive disorder, recurrent, moderate F33.1 [place] [address] [place] [id number] [place] [address] 97264- 1950 Mar, [place] [address] [place] [id number] [place] [address] 97823- 8934 Mar, HTN (hypertension) I10 ; Blindness and low vision H54.10 ; Obesity E66.9 ; Hyperlipidemia E78.5 ; Glaucoma H40.9 ; Chronic pain G89.29 and CAD (coronary artery disease) I25.10 [place] [address] [place] [id number] [place] [address] 98653- 8013 Feb, [place] [address] [place] [id number] [place] [address] 41404- 4660 Feb, Post-traumatic stress disorder, unspecified F43.10 ; Obesity E66.9 ; Sleep apnea, obstructive G47.33 and Open-angle glaucoma of both eyes H40.10X0 [place] [id number] [place] [address] 93306- 8281 Feb, Post-traumatic stress disorder, unspecified F43.10 and Major depressive disorder, recurrent, moderate F33.1 [place] [address] [place] [id number] [place] [address] 16491- 1116 Feb, [place] [address] [place] 861879- 1746 Feb, [place] [address] 93022- 1940 Feb, HTN (hypertension) I10 ; Post-traumatic stress disorder, unspecified F43.10 ; Blindness and low vision H54.10 ; Obesity E66.9 ; Hyperlipidemia E78.5 ; Chronic pain G89.29 ; Glaucoma H40.9 ; Mitral valve prolapse I34.1 and Bilateral headaches R51 [place] [address] 56519- 8030 Feb, [place] [address] 21385- 6119 Feb, Post-traumatic stress disorder, unspecified F43.10 and Major depressive disorder, recurrent, moderate F33.1 [place] [address] [place] [id number] [place] [address] 79772- 0243 Feb, [place] [address] 14977- 7545 Feb, [place] [address] [place] [id number] [place] [address] 14024- 0687 Jan, [place] [address] [place] [id number] [place] [address] 1508 Jan, [place] [address] [place] [id number] [place] [address] 45439- 7336 Jan, Obesity E66.9 ; HTN (hypertension) I10 ; Blindness and low vision H54.10 ; Major depressive disorder, recurrent, moderate F33.1 ; Glaucoma H40.9 ; Hyperlipidemia E78.5 ; Sleep apnea, obstructive G47.33 ; Chronic pain G89.29 ; Anxiety F41.9 ; Chronic tension headaches G44.229 and Cough R05 [facility] [place] [address] [place] [id number] [place] [address] 98366- 1776 Jan, [facility] [place] [address] 894073- 4504 Jan, [facility] [place] [address] [place] [id number] [place] [address] 73445- 6199 Jan, Post-traumatic stress disorder, unspecified F43.10 ; Obesity E66.9 ; Sleep apnea, obstructive G47.33 and Open-angle glaucoma of both eyes H40.10X0 [place] [address] [place] [id number] [place] [address] 263674- 3698 Jan, [place] [address] [place] [id number] [place], [place] [address]- 2329 Jan, Post-traumatic stress disorder, unspecified F43.10 and Major depressive disorder, recurrent, moderate F33.1 [place] [id number] [place] [address] 34228- 1944 Dec, [place] [address] [place] [id number] [place] [address] 25326- 2163 Dec, Sleep apnea, obstructive G47.33 ; Obesity E66.9 ; Hyperlipidemia E78.5 ; Glaucoma H40.9 ; Chronic pain G89.29 ; HTN (hypertension ) I10 ; Blindness and low vision H54.10 ; Anxiety F41.9 and CAD (coronary artery disease) I25.10 [place] [address] [place] [id number] [place] [address] 10991- 5277 Nov, [place] [address] [place] [id number] [place] [address] 43201- 5099 Nov, [place] [address] [place] [id number] [place] [address] 51622- 1435 Nov, [facility] [place] [address] [place] [id number] [place] [address] 92775- 9255 Nov, [place] [address] 12453- 8678 Nov, [facility] [place] [address] [place] [id number] [place] [address] 84410- 5190 Nov, Encounter for immunization Z23 ; Sleep apnea, obstructive G47.33 ; Obesity E66.9 ; Hyperlipidemia E78.5 ; Glaucoma H40.9 ; Chronic pain G89.29 ; Anxiety F41.9 ; Chronic tension headaches G44.229 and HTN (hypertension ) I10 [facility] [place] [address] [place] [id number] [place] [address] 23623- 3604 Nov, [facility] [place] [address] 29260- 8619 Nov, [facility] [place] [address] 78846- 6474 Nov, Dizziness R42 [facility] [place] [address] 48071- 2713 Nov, [facility] [place] [address] 10733- 9507 Oct, [facility] [place] [address] 09020- 4334 Oct, [facility] [place] [address] [place] [id number] [place] [address] 82011- 6485 Oct, [facility] [place] [address] [place] [id number] [place] [address] 60383- 6570 Oct, [facility] [place] [address] [place] [id number] [place] [address] 11919- 8434 Oct, Dizziness 780.4 ; Essential hypertension 401.9 ; Obesity 278.00 ; Hyperlipidemia 272.4 ; Chronic pain 338.29 ; Glaucoma 365.9 and Anxiety 300.00 [facility] [place] [address] [place] [id number] [place] [address] 10425- 1268 02 Oct, 2014 Essential hypertension 401.9 ; Hyperlipidemia 272.4 ; Glaucoma 365.9 ; Obesity 278.00 ; Chronic pain 338.29 and Allergy to insects V15.06 [facility] [place] [address] [facility] [facility] [id number] [place] [address]- 8369 Sep, [facility] [place] [address] [facility] [address] [facility] [id number] [address]- 3910 Sep, [facility] [place] [address] [facility] [address] [facility] [id number] [address]- 6663 Sep, [facility] [place] [address] [facility] [address] [facility] [id number] [address]- 4752 Sep, [facility] [place] [address] [facility] [address] [facility] [id number] [address]- 6173 Aug, Essential hypertension 401.9 ; Obesity 278.00 [...] a day for anxiety 1 tablet Active Hydrocodone-Acetaminophen 7.5-325 MG Orally 4 times [...]
--- OUTSIDE RECORDS SUMMARY | 2018-02-04 15:00 | XMS REPORT ---
Author Author CJ EDGE [facility] Address [address] [place] [address] Care Team Providers Care Program Administrator Name Role Phone CJ EDGE Unavailable PROBLEMS Type Condition ICD9-CM Code IYP19-SV Code Onset Dates Condition Status SNOMED Code Problem Primary insomnia F51.01 Active 5901226 Problem Other male erectile dysfunction N52.8 Active 524676108 Problem Morbid (severe) obesity due to excess calories E66.01 Active 855160638 Problem Sarcoidosis D86.9 Active 76838676 Problem Blindness and low vision H54.10 Active 263283967 Problem Problems related to release from half-way Z65.2 Active [id number] Problem Myocarditis, unspecified chronicity, 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 Active 92347253 Problem Chronic pain G89.29 Active 87777537 Problem 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 Active 634188039 Problem Body mass index (BMI) of 40.0-44.9 in adult Z68.41 Active 716098882 Problem Chronic pain syndrome G89.4 Active 866069137 Problem Migraine without aura and without status migrainosus, not intractable G43.009 Active 661556654 Problem Anxiety F41.9 Active 10183499 Problem Major depressive disorder, recurrent, moderate F33.1 Active 17905858 Problem HTN (hypertension) I10 Active 19005508 Problem Chronic tension headaches G44.229 Active 272220225 Problem CAD (coronary artery disease) I25.10 Active 62724628 Problem Post-traumatic stress disorder, chronic F43.12 Active 715596713 Problem Hyperlipidemia E78.5 Active 42505135 Problem Open-angle glaucoma of both eyes H40.10X0 Active 35680150 Problem Environmental allergies Z91.09 Active 833865558 Problem Sleep apnea, obstructive G47.33 Active 05833313 Problem Mitral valve prolapse I34.1 Active 388097576 Problem Arrhythmia as indication for cardiac pacemaker replacement I49.9 Active 58152557 ALLERGIES No Information ENCOUNTERS Encounter Location Date Diagnosis [facility] [address] [address] Oct, [facility] [id number] [place] [address] 35364- 1517 Sep, [facility] [id number] [place] [address] 36200- 4999 Aug, [facility] [id number] [place] [address] 37105- 4937 Aug, [facility] [id number] [place] [address] 32439- 3576 Aug, Left leg pain M79.605 [facility] [id number] [place] [address] 76818- 2416 26 Jul, 2017 Post-traumatic stress disorder, chronic F43.12 ; Anxiety F41.9 ; Problems related to release from half-way Z65.2 and BMI 40.0-44.9, adult Z68.41 [facility] [id number] [place] [address] 62106- 5404 20 Jul, 2017 HTN (hypertension) I10 ; Body mass index (BMI) of 40.0-44.9 in adult Z68.41 and Acute swimmer''s ear of both sides H60.333 [facility] [id number] [place] [address] 92791- 6493 19 Jul, 2017 Glaucoma H40.9 [facility] [id number] [place] [address] 15369- 2693 14 Jul, 2017 [facility] [id number] [place] [address] 52934- 4444 13 Jul, 2017 Sarcoidosis D86.9 [facility] [id number] [place] [address] 33502- 9704 12 Jul, 2017 Left leg pain M79.605 [facility] [id number] [place] [address] 98051- 8977 Jul, Sarcoidosis D86.9 [facility] [address] [address] 3510 Jul, Post-traumatic stress disorder, unspecified F43.10 ; Major depressive disorder, recurrent, moderate F33.1 and Problems related to release from half-way Z65.2 [facility] [address] [address] June, [facility] [id number] [place] [address] 18322 -6379 June, Sore throat J02.9 and BMI 40.0-44.9, adult Z68.41 [facility] [id number] [place] [address] 53434- 7131 June, [facility] [id number] [place] [address] 91484- 4937 June, [facility] [id number] [place] [address] 00041- 9876 June, [facility] [id number] [place] [address] 36059- 5570 June, Left leg pain M79.605 [facility] [id number] [place] [address] 81925- 8125 June, Sarcoidosis D86.9 [facility] [id number] [place] [address] 05312- 2367 June, [facility] [id number] [address] 8616 June, [facility] [id number] [place] [address] 77460- 4972 June, Left leg pain M79.605 [facility] [id number] [address] 4423 May, [facility] [id number] [place] [address] 42900- 5169 May, [place] [address] [address] 4781 May, [facility] [id number] [place] [address] 42842- 4817 May, Left leg pain M79.605 [facility] [address] [place] [address] 20534- 7674 May, Post-traumatic stress disorder, unspecified F43.10 ; Major depressive disorder, recurrent, moderate F33.1 and Problems related to release from half-way Z65.2 [facility] [address] [place] [address] 30369- 3811 May, Chronic pain G89.29 ; Anxiety F41.9 ; Chest pain, unspecified type R07.9 and BMI 40.0-44.9, adult Z68.41 [facility] [id number] [place] [address] 90824- 2296 30 Apr, 2017 [facility] [id number] [place] [address] 72222- 2305 Apr, Left leg pain M79.605 [facility] [id number] [place] [address] 80946- 6337 27 Apr, 2017 Post-traumatic stress disorder, unspecified F43.10 ; Problems related to release from half-way Z65.2 ; Anxiety F41.9 and BMI 40.0-44.9 , adult Z68.41 [facility] [address] [address] 9587 Apr, [facility] [address] [place] [address] 29027- 6710 19 Apr, 2017 Left leg pain M79.605 [facility] [address] [place] [address] 75566- 0052 13 Apr, 2017 Post-traumatic stress disorder, unspecified F43.10 ; Major depressive disorder, recurrent, moderate F33.1 and Problems related to release from half-way Z65.2 [facility] [id number] [place] [address] 31435- 4033 12 Apr, 2017 [facility] [address] 48227- 5055 12 Apr, 2017 Chronic pain G89.29 ; 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 [address] 06704 -3926 10 Apr, 2017 Sore throat J02.9 and BMI 40.0-44.9, adult Z68.41 [facility] [facility] [address] 24934- 9582 02 Apr, 2017 Left leg pain M79.605 [facility] [address] [id number] Mar, Dental examination Z01.20 [place] [address] 31889- 5704 Mar, [facility] [address] 44157 -6259 20 Mar, 2017 Cough R05 ; Viral gastroenteritis A08.4 and BMI 40.0-44.9, adult Z68.41 [facility] [address] 56175- 4345 Mar, Left leg pain M79.605 [facility] [address] 87064- 6481 06 Mar, 2017 Post-traumatic stress disorder, unspecified F43.10 ; Major depressive disorder, recurrent, moderate F33.1 and Problems related to release from half-way Z65.2 [facility] [id number] [place] [address] 01489- 0956 Feb, Left leg pain M79.605 [facility] [address] 48550- 7498 Feb, [facility] [address] [place] [address] 27599- 0916 Feb, BMI 40.0-44.9, adult Z68.41 ; Chronic pain syndrome G89.4 ; Migraine without aura and without status migrainosus, not intractable G43.009 ; Mitral valve prolapse I34.1 and 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 [facility] [id number] [place] [address] 57080- 6994 Feb, Post-traumatic stress disorder, chronic F43.12 ; Anxiety F41.9 ; Problems related to release from half-way Z65.2 and BMI 40.0-44.9, adult Z68.41 [facility] [id number] [place] [address] 42602- 3298 Feb, Post-traumatic stress disorder, unspecified F43.10 ; Major depressive disorder, recurrent, moderate F33.1 and Problems related to release from half-way Z65.2 [facility] [address] [place] [address] 63410- 0464 Feb, Left leg pain M79.605 [facility] [id number] [place] [address] 88513- 2288 Jan, Post-traumatic stress disorder, unspecified F43.10 ; Major depressive disorder, recurrent, moderate F33.1 and Problems related to release from half-way Z65.2 [facility] [address] [address]- 4872 Jan, [facility] [address] [place] [address] 18594- 4416 Jan, [facility] [id number] [place] [address] 58190- 6708 Jan, Anxiety F41.9 [facility] [address] [address]- 9778 Jan, Left leg pain M79.605 [facility] [address] [address]- 1652 28 Dec, 2016 Left leg pain M79.605 [facility] [id number] [place] [address] 00885- 6202 Dec, [facility] [id number] [place] [address] 06850- 0178 15 Dec, 2016 Post-traumatic stress disorder, unspecified F43.10 ; Major depressive disorder, recurrent, moderate F33.1 and Problems related to release from half-way Z65.2 [facility] [id number] [place] [address] 08763- 8998 Nov, Chronic pain G89.29 and Anxiety F41.9 [facility] [id number] [place] [address] 33079- 7978 24 Nov, 2016 Chronic pain G89.29 and Anxiety F41.9 [facility] [id number] [place] [address] 01463- 5917 16 Nov, 2016 Post-traumatic stress disorder, unspecified F43.10 ; Major depressive disorder, recurrent, moderate F33.1 and Problems related to release from half-way Z65.2 [facility] [address] [place] [address] 86882- 5278 09 Nov, 2016 Other abnormal findings in specimens from other organs, systems and tissues R89.8 ; Other male erectile dysfunction N52.8 ; Body mass index (BMI) of 40.0-44.9 in adult Z68.41 and Morbid (severe) obesity due to excess calories E66.01 [facility] [address] [place] [address] 21278- 8546 02 Nov, 2016 Post-traumatic stress disorder, unspecified F43.10 ; Major depressive disorder, recurrent, moderate F33.1 and Problems related to release from half-way Z65.2 [facility] [address] [id number] Oct, Dental examination Z01.20 [facility] [id number] [place] [address] 72799- 0219 Oct, [facility] [address] [place] [address] 63833- 3990 Oct, Encounter for immunization Z23 [facility] [id number] [place] [address] 18636- 4295 Oct, Chronic pain G89.29 ; Anxiety F41.9 ; Arrhythmia as indication for cardiac pacemaker replacement I49.9 and Glaucoma H40.9 [facility] [id number] [place] [address] 32881- 6180 Oct, Anxiety F41.9 ; Post-traumatic stress disorder, chronic F43.12 and Problems related to release from half-way Z65.2 [facility] [id number] [place] [address] 21070- 8755 Oct, Post-traumatic stress disorder, unspecified F43.10 ; Major depressive disorder, recurrent, moderate F33.1 and Problems related to release from half-way Z65.2 [facility] [id number] [place] [address] 40346- 7863 Sep, Chronic pain G89.29 and Anxiety F41.9 [facility] [id number] [place] [address] 30898- 0792 Sep, Post-traumatic stress disorder, unspecified F43.10 ; Major depressive disorder, recurrent, moderate F33.1 and Problems related to release from half-way Z65.2 [facility] [id number] [place] [address] 17113- 0907 Sep, Post-traumatic stress disorder, unspecified F43.10 ; Major depressive disorder, recurrent, moderate F33.1 and Problems related to release from half-way Z65.2 [facility] [id number] [place] [address] 63597- 4833 Sep, Chronic pain G89.29 [facility] [id number] [place] [address] 06287- 7572 Aug, Dental caries, unspecified K02.9 [facility] [id number] [place] [address] 28982- 7983 Aug, Sleep apnea, obstructive G47.33 ; Obesity E66.9 ; Chronic pain G89.29 ; HTN (hypertension) I10 ; Major depressive disorder, recurrent, moderate F33.1 ; Anxiety F41.9 ; Chronic tension headaches G44.229 ; Mitral valve prolapse I34.1 ; Arrhythmia as indication for cardiac pacemaker replacement I49.9 ; Dental caries, unspecified K02.9 ; Primary insomnia F51.01 and Hyperlipidemia E78.5 [facility] [id number] [place] [address] 87687- 7280 Aug, Post-traumatic stress disorder, unspecified F43.10 ; Major depressive disorder, recurrent, moderate F33.1 and Problems related to release from half-way Z65.2 [facility] [id number] [place] [address] 85763- 7478 Aug, Dental examination Z01.20 [facility] [id number] [place] [address] [id number] Aug, Dental examination Z01.20 [facility] [id number] [place] [address] 67098- 8370 Aug, Post-traumatic stress disorder, unspecified F43.10 ; Major depressive disorder, recurrent, moderate F33.1 and Problems related to release from half-way Z65.2 [facility] [id number] [place] [address] 15758- 7457 Aug, Chronic pain G89.29 and Primary insomnia F51.01 [facility] [id number] [place] [address] 13449- 5694 Jul, [facility] [address] 74381- 9790 Jul, [facility] [id number] [place] [address] 98179- 5217 Jul, Nausea R11.0 [facility] [address] 86771- 5231 Jul, Arrhythmia as indication for cardiac pacemaker replacement I49.9 [facility] [address] [place] [address] 15293- 7440 13 Jul, 2016 Post-traumatic stress disorder, unspecified F43.10 ; Major depressive disorder, recurrent, moderate F33.1 and Problems related to release from half-way Z65.2 [place] [id number] [place] [address] 57543- 9353 09 Jul, 2016 Anxiety F41.9 [facility] [address] [place] [address] 23779- 4980 08 Jul, 2016 Chronic pain G89.29 [place] [address] [place] [address] 10299- 7159 Jul, Sleep apnea, obstructive G47.33 ; Hyperlipidemia E78.5 ; Chronic pain G89.29 ; Blindness and low vision H54.10 ; Major depressive disorder, recurrent, moderate F33.1 ; Anxiety F41.9 ; Mitral valve prolapse I34.1 ; Arrhythmia as indication for cardiac pacemaker replacement I49.9 ; Primary insomnia F51.01 ; Bilateral headaches R51 and Environmental allergies Z91.09 [place] [id number] [place] [address] 94950- 5595 Jul, Post-traumatic stress disorder, unspecified F43.10 ; Major depressive disorder, recurrent, moderate F33.1 and Problems related to release from half-way Z65.2 [facility] [id number] [place] [address] 77463- 0462 June, Post-traumatic stress disorder, chronic F43.12 ; Anxiety F41.9 ; Problems related to release from half-way Z65.2 ; Sleep apnea, obstructive G47.33 and Primary insomnia F51.01 [facility] [id number] [place] [address] 16227- 5042 June, [facility] [id number] [place] [address] 58363- 5369 June, [address] [place] [address]- 2853 June, [facility] [id number] [place] [address] 15611- 6080 June, Chronic pain G89.29 [facility] [id number] [place] [address] 42950- 7500 June, Chronic pain G89.29 [facility] [id number] [place] [address] 33085- 0567 June, Lipoma of left lower extremity D17.24 ; Open wound T14.8 and Swelling of left lower extremity M79.89 [place] [address] [place] [address] 58531- 2562 June, Post-traumatic stress disorder, unspecified F43.10 ; Major depressive disorder, recurrent, moderate F33.1 and Problems related to release from half-way Z65.2 [facility] [place] [id number] [place] [address] 41161- 3780 May, Lipoma of left lower extremity D17.24 ; Major depressive disorder, recurrent, moderate F33.1 ; Sleep apnea, obstructive G47.33 ; Hyperlipidemia E78.5 ; Obesity E66.9 ; HTN (hypertension) I10 ; Glaucoma H40.9 ; CAD (coronary artery disease) I25.10 ; Chronic tension headaches G44.229 ; Chronic pain G89.29 ; Anxiety F41.9 ; Nausea R11.0 and Primary insomnia F51.01 [place] [place] [id number] [place] [address] 80925- 1498 May, [facility] [id number] [place] [address] 83728- 4421 May, Chronic pain G89.29 [facility] [id number] [place] [address] 04059- 1065 May, [facility] [place] [address] [place] [address] 69004- 0108 Apr, Post-traumatic stress disorder, unspecified F43.10 ; Major depressive disorder, recurrent, moderate F33.1 and Problems related to release from half-way Z65.2 [facility] [id number] [place] [address] 02621- 1320 Apr, Primary insomnia F51.01 ; Post-traumatic stress disorder, chronic F43.12 and Problems related to release from half-way Z65.2 [facility] [place] [id number] [place] [address] 62565- 4983 Apr, Post-traumatic stress disorder, unspecified F43.10 ; Major depressive disorder, recurrent, moderate F33.1 and Problems related to release from half-way Z65.2 [facility] [address] 75542- 5097 Apr, [facility] [id number] [place] [address] 90664- 3243 Apr, Sleep apnea, obstructive G47.33 ; Chronic pain G89.29 ; HTN (hypertension) I10 ; Mitral valve prolapse I34.1 ; Shoulder pain, left M25.512 ; Arrhythmia as indication for cardiac pacemaker replacement I49.9 ; Glaucoma H40.9 ; Bilateral headaches R51 ; Environmental allergies Z91.09 ; Primary insomnia F51.01 and Nausea R11.0 [facility] [place] [id number] [place] [address] 78873- 1597 Apr, [facility] [place] [id number] [place] [address] 63821- 2532 Apr, [place] [address] 38164- 3292 Apr, Post-traumatic stress disorder, unspecified F43.10 ; Major depressive disorder, recurrent, moderate F33.1 and Problems related to release from half-way Z65.2 [facility] [id number] [place] [address] 58343- 1819 Apr, HTN (hypertension) I10 [facility] [id number] [place] [address] 07524- 1847 Apr, HTN (hypertension) I10 [place] [address] [address]- 0714 14 Mar, 2016 Chronic pain G89.29 ; Primary insomnia F51.01 and Problems related to release from half-way Z65.2 [facility] [address] [address]- 7974 07 Mar, 2016 Post-traumatic stress disorder, unspecified F43.10 ; Major depressive disorder, recurrent, moderate F33.1 and Problems related to release from half-way Z65.2 [place] [id number] [place] [address] 47944- 6163 Feb, Post-traumatic stress disorder, unspecified F43.10 ; Major depressive disorder, recurrent, moderate F33.1 and Problems related to release from half-way Z65.2 [facility] [address] [place] [address] 87160- 2576 Feb, Chronic tension headaches G44.229 [address] [place] [address] 35365- 2608 Feb, Sleep apnea, obstructive G47.33 ; Obesity [...] pacemaker replacement I49.9 and Primary insomnia F51.01 [place] [address] [address]- 2624 17 Feb, 2016 Post-traumatic stress disorder, unspecified F43.10 and Chronic pain G89.29 [facility] [address] [address]- 2001 Feb, [facility] [address] [place] [address] [id number] 11 Feb, 2016 Dental caries K02.9 [place] [id number] [place] [address] 52386- 3655 Feb, [place] [id number] [place] [address] 31773- 1663 Feb, Post-traumatic stress disorder, unspecified F43.10 ; Major depressive disorder, recurrent, moderate F33.1 and Problems related to release from half-way Z65.2 [facility] [id number] [place] [address] 24707- 8095 Jan, Sleep apnea, obstructive G47.33 and Chronic pain G89.29 [place] [id number] [place] [address] 97671- 5811 Jan, [place] [id number] [place] [address] 79663- 6371 Jan, Dental examination Z01.20 [facility] [place] [id number] [place] [address] 03649- 5076 Jan, [place] [id number] [place] [address] 64245- 7898 Jan, [place] [id number] [place] [address] 08202- 9791 Dec, Post-traumatic stress disorder, unspecified F43.10 ; Major depressive disorder, recurrent, moderate F33.1 and Problems related to release from half-way Z65.2 [facility] [address] [place] [address] 35870- 8761 Dec, Encounter for immunization Z23 ; Problems related to release from half-way Z65.2 ; Sleep apnea, obstructive G47.33 and Post-traumatic stress disorder, chronic F43.12 [place] [id number] [place] [address] 49395- 0233 Dec, Sleep apnea, obstructive G47.33 ; Hyperlipidemia E78.5 ; Chronic pain G89.29 ; Glaucoma H40.9 ; HTN (hypertension) I10 ; Post-traumatic stress disorder, unspecified F43.10 ; Anxiety F41.9 ; Chronic tension headaches G44.229 ; Mitral valve prolapse I34.1 and CAD (coronary artery disease) I25.10 [facility] [id number] [place] [address] 36010- 2198 Dec, Post-traumatic stress disorder, unspecified F43.10 ; Major depressive disorder, recurrent, moderate F33.1 and Problems related to release from half-way Z65.2 [place] [address] 93909- 0281 Nov, Chronic pain G89.[address] 22566- 4263 Nov, Post-traumatic stress disorder, unspecified F43.10 ; Major depressive disorder, recurrent, moderate F33.1 and Problems related to release from half-way Z65.2 [place] [address] [place] [id number] [place] [phone] 23 Oct, 2015 [place] [address] [place] [id number] [place] [phone] 23 Oct, 2015 [place] [address] [place] [id number] [place] [address] 10974- 4572 16 Oct, 2015 Post-traumatic stress disorder, unspecified F43.10 ; Major depressive disorder, recurrent, moderate F33.1 and Problems related to release from half-way Z65.2 [place] [id number] [place] [address] 16416- 8563 08 Oct, 2015 [place] [address] 04618- 1604 07 Oct, 2015 Environmental allergies Z91.09 ; Cough R05 and Open-angle glaucoma of both eyes H40.10X0 [place] [id number] [place] [address] 11011- 3563 Sep, [place] [id number] [place] [address] 88123- 6557 Sep, Post-traumatic stress disorder, unspecified F43.10 ; Major depressive disorder, recurrent, moderate F33.1 and Problems related to release from half-way Z65.2 [place] [address] [place] [id number] [place] [address] 06486- 0168 Sep, Chronic pain G89.29 [place] [address] [place] [id number] [place] [address] 93648- 2927 Sep, Pain in left shoulder M25.512 ; Pain in right shoulder M25.511 and Other chronic pain G89.29 [place] [address] [place] [id number] [place] [address] 16950- 8517 Sep, [place] [address] 35687- 3826 Sep, [place] [address] [place] [id number] [place] [address] 56691- 1315 Sep, [facility] [address] [id number] Aug, Dental examination Z01.20 [place] [address] [place] [id number] [place] [address] 27155- 7716 Aug, Post-traumatic stress disorder, unspecified F43.10 ; Open- angle glaucoma of both eyes H40.10X0 and Problems related to release from half-way Z65.2 [place] [address] [place] [id number] [place] [address] 19515- 5414 Aug, [place] [address] [place] [id number] [place] [address] 10058- 1718 Aug, Sleep apnea, obstructive G47.33 ; Obesity E66.9 ; Hyperlipidemia E78.5 ; Bilateral headaches R51 ; HTN (hypertension) I10 ; Post- traumatic stress disorder, unspecified F43.10 ; Anxiety F41.9 ; Neuropathy G62.9 ; Glaucoma H40.9 and Chronic pain G89.29 [facility] [address] [place] [id number] [place] [address] [id number] Aug, Encounter for dental examination Z01.20 [place] [address] [place] [address]- 3332 Aug, Post-traumatic stress disorder, unspecified F43.10 ; Major depressive disorder, recurrent, moderate F33.1 and Problems related to release from half-way Z65.2 [facility] [address] [address] 4097 Aug, [facility] [id number] [place] [address] 41293- 7284 Jul, [facility] [address] [place] [id number] [place] [address] 05340- 4559 Jul, Post-traumatic stress disorder, unspecified F43.10 and Major depressive disorder, recurrent, moderate F33.1 [facility] [address] [address]- 5455 Jul, [facility] [id number] [address] 7524 Jul, [facility] [address] [id number] [place] [address] 70791- 4087 Jul, Chronic pain G89.29 [facility] [address] [place] [id number] [place] [address] 08819- 1859 June, Post-traumatic stress disorder, unspecified F43.10 and Major depressive disorder, recurrent, moderate F33.1 [facility] [address] [address]- 3661 June, [facility] [address] [place] [id number] [place] [address] 38072- 5398 June, Chronic pain G89.29 [facility] [address] [address]- 9428 June, Post-traumatic stress disorder, unspecified F43.10 and Major depressive disorder, recurrent, moderate F33.1 [facility] [address] [address]- 5402 May, Post-traumatic stress disorder, unspecified F43.10 and Major depressive disorder, recurrent, moderate F33.1 [facility] [address] [address]- 8764 May, [facility] [address] [id number] [place] [address] 06640- 2435 May, [facility] [address] [address]- 0198 May, [facility] [address] [id number] [place] [address] 39271- 9251 Apr, [facility] [address] [id number] [place] [address] 51603- 7786 Apr, Post-traumatic stress disorder, unspecified F43.10 and Sleep apnea, obstructive G47.33 [facility] [address] [id number] [place] [address] 97365- 7825 Apr, [facility] [address] [address] [id number] [place] [address] 96139- 3775 Apr, Shoulder pain, left M25.512 [facility] [address] [place] [id number] [place] [address] 91868- 1982 Apr, Post-traumatic stress disorder, unspecified F43.10 and Major depressive disorder, recurrent, moderate F33.1 [facility] [address] [address]- 2370 Apr, [facility] [address] [place] [address] [id number] [place] [address] 67558- 9402 Apr, [facility] [id number] [place] [address] 33308- 5032 Apr, [facility] [address] [place] [address] [id number] [place] [address] 41694- 3895 Apr, Left shoulder pain M25.512 [facility] [address] [address]- 4268 Mar, [facility] [address] [place] [id number] [place] [address] 87252- 0231 Mar, [place] [address] [place] [id number] [place] [address] 74469- 3084 Mar, [place] [address] [place] [id number] [place] [address] 83525- 8843 Mar, Sleep apnea, obstructive G47.33 ; Obesity E66.9 ; Chronic pain G89.29 ; Hyperlipidemia E78.5 ; HTN (hypertension) I10 ; Blindness and low vision H54.10 ; Major depressive disorder, recurrent, moderate F33.1 and Anxiety F41.[address] 73816- 7468 Mar, [place] [address] [place] [id number] [place] [address] 52226- 7459 Mar, Post-traumatic stress disorder, unspecified F43.10 and Major depressive disorder, recurrent, moderate F33.1 [place] [address] [place] [address] [id number] [place] [address] 23901- 0821 Mar, [place] [address] [place] [address] [id number] [place] [address] 81738- 0162 Mar, HTN (hypertension) I10 ; Blindness and low vision H54.10 ; Obesity E66.9 ; Hyperlipidemia E78.5 ; Glaucoma H40.9 ; Chronic pain G89.29 and CAD (coronary artery disease) I25.10 [place] [address] [place] [id number] [place] [address] 73306- 7555 Feb, [place] [address] [place] [id number] [place] [address] 15997- 6396 Feb, Post-traumatic stress disorder, unspecified F43.10 ; Obesity E66.9 ; Sleep apnea, obstructive G47.33 and Open-angle glaucoma of both eyes H40.10X0 [place] [id number] [place] [address] 32031- 1244 Feb, Post-traumatic stress disorder, unspecified F43.10 and Major depressive disorder, recurrent, moderate F33.1 [place] [address] [place] [id number] [place] [address] 82935- 4807 Feb, [place] [address] [place] [address]75[address]- 1456 Feb, [place] [address] 845923- 8955 Feb, HTN (hypertension) I10 ; Post-traumatic stress disorder, unspecified F43.10 ; Blindness and low vision H54.10 ; Obesity E66.9 ; Hyperlipidemia E78.5 ; Chronic pain G89.29 ; Glaucoma H40.9 ; Mitral valve prolapse I34.1 and Bilateral headaches R51 [place] [address] [place] [id number] [place] [address] 80644- 9073 Feb, [place] [address] 205816- 7721 Feb, Post-traumatic stress disorder, unspecified F43.10 and Major depressive disorder, recurrent, moderate F33.1 [place] [address] [place] [id number] [place] [address] 31611- 5628 Feb, [place] [address] [place] [id number] [place] [address] 26817- 4721 Feb, [place] [address] [place] [id number] [place] [address] 53862- 2452 Jan, [place] [address] [place] [id number] [place] [address] 89671- 0587 Jan, [place] [address] [place] [id number] [place] [address] 16933- 7321 Jan, Obesity E66.9 ; HTN (hypertension) I10 ; Blindness and low vision H54.10 ; Major depressive disorder, recurrent, moderate F33.1 ; Glaucoma H40.9 ; Hyperlipidemia E78.5 ; Sleep apnea, obstructive G47.33 ; Chronic pain G89.29 ; Anxiety F41.9 ; Chronic tension headaches G44.229 and Cough R05 [facility] [address] [place] [id number] [place] [address] 61071- 8364 Jan, [facility] [address] [place] [id number] [place] [address] 78188- 0495 Jan, [facility] [address] [place] [id number] [place] [address] 29450- 2021 Jan, Post-traumatic stress disorder, unspecified F43.10 ; Obesity E66.9 ; Sleep apnea, obstructive G47.33 and Open-angle glaucoma of both eyes H40.10X0 [place] [address] 315708- 2948 Jan, [place] [address] 145932- 7317 Jan, Post-traumatic stress disorder, unspecified F43.10 and Major depressive disorder, recurrent, moderate F33.1 [place] [address] [place] [id number] [place] [address] 65322- 2271 Dec, [place] [address] [place] [id number] [place] [address] 11261- 1675 Dec, Sleep apnea, obstructive G47.33 ; Obesity E66.9 ; Hyperlipidemia E78.5 ; Glaucoma H40.9 ; Chronic pain G89.29 ; HTN (hypertension ) I10 ; Blindness and low vision H54.10 ; Anxiety F41.9 and CAD (coronary artery disease) I25.10 [place] [address] [place] [id number] [place] [address] 81061- 4558 Nov, [facility] [address] [place] [id number] [place] [address] 29650- 2947 Nov, [place] [address] 43969- 9925 Nov, [facility] [address] [place] [id number] [place] [address] 40530- 2459 Nov, [place] [address] [place] [address]- 0795 Nov, [facility] [address] 22397- 2610 Nov, Encounter for immunization Z23 ; Sleep apnea, obstructive G47.33 ; Obesity E66.9 ; Hyperlipidemia E78.5 ; Glaucoma H40.9 ; Chronic pain G89.29 ; Anxiety F41.9 ; Chronic tension headaches G44.229 and HTN (hypertension ) I10 [facility] [address] 29676- 8180 Nov, [facility] [address] 76257- 9256 Nov, [facility] [address] 44422- 4798 Nov, Dizziness R42 [facility] [address] 58388- 8684 Nov, [facility] [address] 24624- 7609 29 Oct, 2014 [facility] [address] 30103- 8679 28 Oct, 2014 [facility] [address] [place] [id number] [place] [address] 75060- 8589 Oct, [facility] [address] 72555- 6292 Oct, [facility] [address] 77353- 5913 17 Oct, 2014 Dizziness 780.4 ; Essential hypertension 401.9 ; Obesity 278.00 ; Hyperlipidemia 272.4 ; Chronic pain 338.29 ; Glaucoma 365.9 and Anxiety 300.00 [facility] [address] [place] [id number] [place] [address] 75840- 1144 02 Oct, 2014 Essential hypertension 401.9 ; Hyperlipidemia 272.4 ; Glaucoma 365.9 ; Obesity 278.00 ; Chronic pain 338.29 and Allergy to insects V15.06 [facility] [address] [facility] [id number] [address]- 9190 Sep, [facility] [address] [place] [id number] [address]- 4949 Sep, [facility] [address] [facility] [id number] [address]- 0247 Sep, [facility] [address] [facility] [id number] [address]- 2067 Sep, [facility] [address] [facility] [id number] [address]- 2850 Aug, Essential hypertension 401.9 ; Obesity 278.00 [...] Psychotherapy, patient &/family, 45 minutes, established patient April 20, 2017 INSTRUCTIONS MEDICATIONS ADMINISTERED No Known [...]
--- OUTSIDE RECORDS SUMMARY | 2018-02-04 15:01 | XMS REPORT ---
Author Author REINALDO STEVENSON Organization [facility] Address [address] [place] [address] Care Team Providers Care Area Cleaner Name Role Phone REINALDO STEVENSON Unavailable PROBLEMS Type Condition ICD9-CM Code QYO41-WN Code Onset Dates Condition Status SNOMED Code Problem Primary insomnia F51.01 Active 1991597 Problem Other male erectile dysfunction N52.8 Active 783455118 Problem Morbid (severe) obesity due to excess calories E66.01 Active 910677747 Problem Sarcoidosis D86.9 Active 27583039 Problem Blindness and low vision H54.10 Active 612643220 Problem Problems related to release from alf Z65.2 Active [id number] Problem Myocarditis, unspecified chronicity, 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 Active 56337347 Problem Chronic pain G89.29 Active 44995354 Problem 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 Active 247776763 Problem Body mass index (BMI) of 40.0-44.9 in adult Z68.41 Active 323524866 Problem Chronic pain syndrome G89.4 Active 483522974 Problem Migraine without aura and without status migrainosus, not intractable G43.009 Active 056727640 Problem Anxiety F41.9 Active 73506442 Problem Major depressive disorder, recurrent, moderate F33.1 Active 93734074 Problem HTN (hypertension) I10 Active 18580516 Problem Chronic tension headaches G44.229 Active 553964040 Problem CAD (coronary artery disease) I25.10 Active 47377688 Problem Post-traumatic stress disorder, chronic F43.12 Active 443943000 Problem Hyperlipidemia E78.5 Active 49387943 Problem Open-angle glaucoma of both eyes H40.10X0 Active 57108831 Problem Environmental allergies Z91.09 Active 977636862 Problem Sleep apnea, obstructive G47.33 Active 31901513 Problem Mitral valve prolapse I34.1 Active 121014176 Problem Arrhythmia as indication for cardiac pacemaker replacement I49.9 Active 52270502 ALLERGIES Substance Reaction Event Type Date Status Xalatan upper lid irritation Drug Allergy Apr, Active Penicillin G Potassium rash Drug Allergy Apr, Active Aspirin nausea and vomiting Drug Allergy Apr, Active bandaides blisters Non Drug Allergy Apr, Active Wasp venom anaphylaxis Non Drug Allergy Apr, Active ENCOUNTERS Encounter Location Date Diagnosis [place] [id number] [place] [address] 86580- 5593 Oct, [place] [address] [place] [id number] [place] [address] 55060- 5656 Sep, [place] [address] [place] [id number] [place] [address] 20426- 5990 Aug, [place] [address] [place] [id number] [place] [address] 27215- 8653 Aug, [place] [address] [place] [id number] [place] [address] 23943- 9915 Aug, Left leg pain M79.605 [place] [address] [place] [id number] [place] [address] 87968- 3973 26 Jul, 2017 Post-traumatic stress disorder, chronic F43.12 ; Anxiety F41.9 ; Problems related to release from alf Z65.2 and BMI 40.0-44.9, adult Z68.41 [place] [address] [place] [address] 65357- 3389 20 Jul, 2017 HTN (hypertension) I10 ; Body mass index (BMI) of 40.0-44.9 in adult Z68.41 and Acute swimmer''s ear of both sides H60.333 [place] [address] [place] [id number] [place] [address] 24469- 2796 Jul, Glaucoma H40.9 [place] [address] [place] [id number] [place] [address] 11780- 6668 14 Jul, 2017 [place] [address] [place] [id number] [place] [address] 07468- 8072 13 Jul, 2017 Sarcoidosis D86.9 [place] [address] [place] [id number] [place] [address] 88141- 0092 Jul, Left leg pain M79.605 [facility] [address] [place] [id number] [place] [address] 51213- 8560 Jul, Sarcoidosis D86.9 [facility] [address] [place] [id number] [place] [address] 85805- 3401 Jul, Post-traumatic stress disorder, unspecified F43.10 ; Major depressive disorder, recurrent, moderate F33.1 and Problems related to release from alf Z65.2 [facility] [address] [place] [id number] [place] [address] 42367- 5297 June, [facility] [address] [place] [id number] [place] [address] 06916 -2165 June, Sore throat J02.9 and BMI 40.0-44.9, adult Z68.41 [facility] [address] [place] [id number] [place] [address] 91884- 4778 June, [facility] [address] [place] [id number] [place] [address] 83853- 6724 June, [facility] [address] [place] [id number] [place] [address] 87040- 2895 June, [facility] [address] [place] [id number] [place] [address] 96478- 3091 June, Left leg pain M79.605 [facility] [address] [place] [id number] [place] [address] 57092- 4796 June, Sarcoidosis D86.9 [facility] [address] [place] [address] 83600- 8800 June, [facility] [address] [place] [id number] [place] [address] 09444- 4813 June, [facility] [address] [address] [address] 8433 June, Left leg pain M79.605 [facility] [address] [place] [address] 2058 May, [facility] [address] [place] [id number] [place] [address] 48023- 0162 May, [facility] [id number] [place] [address] 02723- 9464 May, [facility] [address] [place] [id number] [place] [address] 59335- 6697 May, Left leg pain M79.605 [facility] [address] [place] [id number] [place] [address] 26978- 9716 May, Post-traumatic stress disorder, unspecified F43.10 ; Major depressive disorder, recurrent, moderate F33.1 and Problems related to release from alf Z65.2 [place] [address] [place] [id number] [place] [address] 28897- 4170 May, Chronic pain G89.29 ; Anxiety F41.9 ; Chest pain, unspecified type R07.9 and BMI 40.0-44.9, adult Z68.41 [facility] [address] [place] [id number] [place] [address] 19670- 3626 Apr, [facility] [address] [place] [address] 84342- 0417 Apr, Left leg pain M79.605 [facility] [address] [place] [id number] [place] [address] 31128- 1556 Apr, Post-traumatic stress disorder, unspecified F43.10 ; Problems related to release from alf Z65.2 ; Anxiety F41.9 and BMI 40.0-44.9 , adult Z68.41 [facility] [address] [place] [address] 65392- 1651 Apr, [facility] [address] [place] [address] 45111- 7344 Apr, Left leg pain M79.605 [facility] [address] 39166- 8391 13 Apr, 2017 Post-traumatic stress disorder, unspecified F43.10 ; Major depressive disorder, recurrent, moderate F33.1 and Problems related to release from alf Z65.2 [place] [address] 56370- 5216 12 Apr, 2017 [place] [address] 94983- 7585 12 Apr, 2017 Chronic pain G89.29 ; 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 ; Morbid (severe) obesity due to excess calories E66.01 ; Anxiety F41.9 and BMI 40.0-44.9, adult Z68.41 [facility] [place] [address] 83427 -6543 10 Apr, 2017 Sore throat J02.9 and BMI 40.0-44.9, adult Z68.41 [place] [address] 07841- 1810 02 Apr, 2017 Left leg pain M79.605 [facility] [address] [id number] 28 Mar, 2017 Dental examination Z01.20 [place] [address] 13859- 9942 23 Mar, 2017 [facility] [place] [address] 03653 -0866 20 Mar, 2017 Cough R05 ; Viral gastroenteritis A08.4 and BMI 40.0-44.9, adult Z68.41 [place] [address] 98338- 1634 19 Mar, 2017 Left leg pain M79.605 [place] [address] 01806- 9661 06 Mar, 2017 Post-traumatic stress disorder, unspecified F43.10 ; Major depressive disorder, recurrent, moderate F33.1 and Problems related to release from alf Z65.2 [facility] [address] [address]- 6213 Feb, Left leg pain M79.605 [facility] [address] [place] [id number] [place] [address] 19078- 2270 Feb, [facility] [address] [place] [id number] [place] [address] 59956- 4892 Feb, BMI 40.0-44.9, adult Z68.41 ; Chronic pain syndrome G89.4 ; Migraine without aura and without status migrainosus, not intractable G43.009 ; Mitral valve prolapse I34.1 and 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 [place] [address] [place] [id number] [place] [address] 59924- 6439 Feb, Post-traumatic stress disorder, chronic F43.12 ; Anxiety F41.9 ; Problems related to release from alf Z65.2 and BMI 40.0-44.9, adult Z68.41 [place] [address] [place] [address] 41481- 1062 Feb, Post-traumatic stress disorder, unspecified F43.10 ; Major depressive disorder, recurrent, moderate F33.1 and Problems related to release from alf Z65.2 [place] [address] [place] [address] 18508- 5813 Feb, Left leg pain M79.605 [place] [address] [place] [address] 16143- 0195 Jan, Post-traumatic stress disorder, unspecified F43.10 ; Major depressive disorder, recurrent, moderate F33.1 and Problems related to release from alf Z65.2 [place] [address] [place] [address] 37747- 9164 Jan, [place] [address] [place] [id number] [place] [address] 09759- 0975 Jan, [place] [address] [place] [id number] [place] [address] 87148- 3622 Jan, Anxiety F41.9 [facility] [address] [place] [address] 14052- 0887 Jan, Left leg pain M79.605 [facility] [address] [address]- 2872 Dec, Left leg pain M79.605 [place] [address] [place] [address] 50915- 5082 Dec, [place] [address] [place] [address] 93806- 5668 Dec, Post-traumatic stress disorder, unspecified F43.10 ; Major depressive disorder, recurrent, moderate F33.1 and Problems related to release from alf Z65.2 [place] [address] [place] [id number] [place] [address] 73147- 7020 Nov, Chronic pain G89.29 and Anxiety F41.9 [place] [address] [place] [address] 13488- 3375 24 Nov, 2016 Chronic pain G89.29 and Anxiety F41.9 [place] [address] [place] [id number] [place] [address] 61910- 3875 16 Nov, 2016 Post-traumatic stress disorder, unspecified F43.10 ; Major depressive disorder, recurrent, moderate F33.1 and Problems related to release from alf Z65.2 [place] [address] [place] [address] 52559- 3095 09 Nov, 2016 Other abnormal findings in specimens from other organs, systems and tissues R89.8 ; Other male erectile dysfunction N52.8 ; Body mass index (BMI) of 40.0-44.9 in adult Z68.41 and Morbid (severe) obesity due to excess calories E66.01 [place] [address] [address]- 7851 02 Nov, 2016 Post-traumatic stress disorder, unspecified F43.10 ; Major depressive disorder, recurrent, moderate F33.1 and Problems related to release from alf Z65.2 [facility] [address] [place] [address] [address] 29 Oct, 2016 Dental examination Z01.20 [place] [address] [place] [address] 78421- 4125 28 Oct, 2016 [place] [address] [place] [address] 39176- 8179 28 Oct, 2016 Encounter for immunization Z23 [place] [address] [place] [id number] [place] [address] 16041- 9919 Oct, Chronic pain G89.29 ; Anxiety F41.9 ; Arrhythmia as indication for cardiac pacemaker replacement I49.9 and Glaucoma H40.9 [place] [address] [place] [address] 44187- 3306 Oct, Anxiety F41.9 ; Post-traumatic stress disorder, chronic F43.12 and Problems related to release from alf Z65.2 [place] [address] [place] [address] 51851- 7709 07 Oct, 2016 Post-traumatic stress disorder, unspecified F43.10 ; Major depressive disorder, recurrent, moderate F33.1 and Problems related to release from alf Z65.2 [place] [address] [place] [address] 80035- 8556 30 Sep, 2016 Chronic pain G89.29 and Anxiety F41.9 [place] [address] [place] [address] 19798- 9043 Sep, Post-traumatic stress disorder, unspecified F43.10 ; Major depressive disorder, recurrent, moderate F33.1 and Problems related to release from alf Z65.2 [place] [address] [place] [address] 55023- 5849 11 Sep, 2016 Post-traumatic stress disorder, unspecified F43.10 ; Major depressive disorder, recurrent, moderate F33.1 and Problems related to release from alf Z65.2 [place] [address] [place] [address] 10209- 6363 Sep, Chronic pain G89.29 [facility] [address] [address]- 9903 Aug, Dental caries, unspecified K02.9 [facility] [address] [address]- 1012 Aug, Sleep apnea, obstructive G47.33 ; Obesity E66.9 ; Chronic pain G89.29 ; HTN (hypertension) I10 ; Major depressive disorder, recurrent, moderate F33.1 ; Anxiety F41.9 ; Chronic tension headaches G44.229 ; Mitral valve prolapse I34.1 ; Arrhythmia as indication for cardiac pacemaker replacement I49.9 ; Dental caries, unspecified K02.9 ; Primary insomnia F51.01 and Hyperlipidemia E78.5 [place] [address] [address]- 7826 Aug, Post-traumatic stress disorder, unspecified F43.10 ; Major depressive disorder, recurrent, moderate F33.1 and Problems related to release from alf Z65.2 [facility] [address] [place] [address] 58613- 9500 Aug, Dental examination Z01.20 [facility] [address] [address] Aug, Dental examination Z01.20 [facility] [address] [address]- 2260 Aug, Post-traumatic stress disorder, unspecified F43.10 ; Major depressive disorder, recurrent, moderate F33.1 and Problems related to release from alf Z65.2 [facility] [address], [place] [address]- 3905 Aug, Chronic pain G89.29 and Primary insomnia F51.01 [facility] [address] [address]- 0024 Jul, [facility] [address] [place] [id number] [place] [address] 76140- 4189 Jul, [place] [address] [place] [address] 48138- 9065 Jul, Nausea R11.0 [place] [address] [place] [id number] [place] [address] 78437- 2749 Jul, Arrhythmia as indication for cardiac pacemaker replacement I49.9 [place] [id number] [place] [address] 57403- 1166 Jul, Post-traumatic stress disorder, unspecified F43.10 ; Major depressive disorder, recurrent, moderate F33.1 and Problems related to release from alf Z65.2 [place] [id number] [place] [address] 80350- 5867 09 Jul, 2016 Anxiety F41.9 [place] [id number] [place] [address] 98345- 3262 08 Jul, 2016 Chronic pain G89.29 [place] [id number] [place] [address] 84408- 2283 Jul, Sleep apnea, obstructive G47.33 ; Hyperlipidemia E78.5 ; Chronic pain G89.29 ; Blindness and low vision H54.10 ; Major depressive disorder, recurrent, moderate F33.1 ; Anxiety F41.9 ; Mitral valve prolapse I34.1 ; Arrhythmia as indication for cardiac pacemaker replacement I49.9 ; Primary insomnia F51.01 ; Bilateral headaches R51 and Environmental allergies Z91.[address] [place] [address] 70105- 4504 Jul, Post-traumatic stress disorder, unspecified F43.10 ; Major depressive disorder, recurrent, moderate F33.1 and Problems related to release from alf Z65.2 [place] [id number] [place] [address] 28748- 4253 June, Post-traumatic stress disorder, chronic F43.12 ; Anxiety F41.9 ; Problems related to release from alf Z65.2 ; Sleep apnea, obstructive G47.33 and Primary insomnia F51.01 [place] [id number] [place] [address] 31255- 2796 June, [place] [address] [place] [id number] [place] [address] 82595- 1189 June, [place] [address] [place] [id number] [place] [address] 44345- 9143 June, [place] [address] [place] [id number] [place] [address] 93332- 7238 June, Chronic pain G89.29 [place] [address] 34114- 2554 June, Chronic pain G89.[address] 91794- 1382 June, Lipoma of left lower extremity D17.24 ; Open wound T14.8 and Swelling of left lower extremity M79.[address] 49194- 3362 June, Post-traumatic stress disorder, unspecified F43.10 ; Major depressive disorder, recurrent, moderate F33.1 and Problems related to release from alf Z65.2 [place] [id number] [place] [address] 62401- 0680 May, Lipoma of left lower extremity D17.24 ; Major depressive disorder, recurrent, moderate F33.1 ; Sleep apnea, obstructive G47.33 ; Hyperlipidemia E78.5 ; Obesity E66.9 ; HTN (hypertension) I10 ; Glaucoma H40.9 ; CAD (coronary artery disease) I25.10 ; Chronic tension headaches G44.229 ; Chronic pain G89.29 ; Anxiety F41.9 ; Nausea R11.0 and Primary insomnia F51.01 [place] [address] [place] [id number] [place] [address] 53136- 1740 May, [place] [id number] [place] [address] 64620- 3467 May, Chronic pain G89.[address] [place] [address]- 0708 May, [place] [address] [place] [id number] [place] [address] 03215- 5213 Apr, Post-traumatic stress disorder, unspecified F43.10 ; Major depressive disorder, recurrent, moderate F33.1 and Problems related to release from alf Z65.2 [place] [address] [place] [id number] [place] [address] 68135- 7736 Apr, Primary insomnia F51.01 ; Post-traumatic stress disorder, chronic F43.12 and Problems related to release from alf Z65.2 [place] [address] [place] [id number] [place] [address] 59845- 9758 Apr, Post-traumatic stress disorder, unspecified F43.10 ; Major depressive disorder, recurrent, moderate F33.1 and Problems related to release from alf Z65.2 [place] [address] [place] [id number] [place] [address] 60505- 7940 Apr, [place] [address] [place] [id number] [place] [address] 17866- 9789 Apr, Sleep apnea, obstructive G47.33 ; Chronic pain G89.29 ; HTN (hypertension) I10 ; Mitral valve prolapse I34.1 ; Shoulder pain, left M25.512 ; Arrhythmia as indication for cardiac pacemaker replacement I49.9 ; Glaucoma H40.9 ; Bilateral headaches R51 ; Environmental allergies Z91.09 ; Primary insomnia F51.01 and Nausea R11.0 [place] [address] [place] [address] 06341- 6260 Apr, [place] [address] [place] [id number] [place] [address] 14753- 7925 Apr, [place] [address] [place] [id number] [place] [address] 31216- 0218 Apr, Post-traumatic stress disorder, unspecified F43.10 ; Major depressive disorder, recurrent, moderate F33.1 and Problems related to release from alf Z65.2 [place] [address] [place] [address] [address]- 5813 07 Apr, 2016 HTN (hypertension) I10 [place] [address] [place] [id number] [place] [address] 34543- 6404 Apr, HTN (hypertension) I10 [place] [address] [place] [address] 27470- 1904 14 Mar, 2016 Chronic pain G89.29 ; Primary insomnia F51.01 and Problems related to release from alf Z65.2 [place] [address] [place] [id number] [place] [address] 55607- 7965 07 Mar, 2016 Post-traumatic stress disorder, unspecified F43.10 ; Major depressive disorder, recurrent, moderate F33.1 and Problems related to release from alf Z65.2 [place] [address] [place] [id number] [place] [address] 81467- 0180 Feb, Post-traumatic stress disorder, unspecified F43.10 ; Major depressive disorder, recurrent, moderate F33.1 and Problems related to release from alf Z65.2 [place] [address] [place] [address] 00704- 6177 Feb, Chronic tension headaches G44.229 [place] [id number] [place] [address] 28486- 9395 Feb, Sleep apnea, obstructive G47.33 ; Obesity [...] pacemaker replacement I49.9 and Primary insomnia F51.01 [place] [address], [place] [address]- 2961 Feb, Post-traumatic stress disorder, unspecified F43.10 and Chronic pain G89.29 [place] [address], [place] [address]- 0096 13 Feb, 2016 [facility] [id number] [place] [address] [id number] Feb, Dental caries K02.9 [facility] [address] [id number] [place] [address] 18154- 0501 Feb, [place] [address] [place] [id number] [place] [address] 65534- 6170 Feb, Post-traumatic stress disorder, unspecified F43.10 ; Major depressive disorder, recurrent, moderate F33.1 and Problems related to release from alf Z65.2 [place] [address] [place] [id number] [place] [address] 81919- 5401 Jan, Sleep apnea, obstructive G47.33 and Chronic pain G89.29 [place] [address] [place] [id number] [place] [address] 27837- 5011 Jan, [place] [address] [place] [id number] [place] [address] 79275- 0398 Jan, Dental examination Z01.20 [place] [address] [place] [id number] [place] [address] 96870- 6519 Jan, [place] [address] [place] [id number] [place] [address] 05135- 5479 Jan, [place] [address] [place] [id number] [place] [address] 11929- 1805 Dec, Post-traumatic stress disorder, unspecified F43.10 ; Major depressive disorder, recurrent, moderate F33.1 and Problems related to release from alf Z65.2 [place] [address] [place] [id number] [place] [address] 60664- 9041 29 Dec, 2015 Encounter for immunization Z23 ; Problems related to release from alf Z65.2 ; Sleep apnea, obstructive G47.33 and Post-traumatic stress disorder, chronic F43.12 [place] [address] [place] [id number] [place] [address] 65495- 4579 Dec, Sleep apnea, obstructive G47.33 ; Hyperlipidemia E78.5 ; Chronic pain G89.29 ; Glaucoma H40.9 ; HTN (hypertension) I10 ; Post-traumatic stress disorder, unspecified F43.10 ; Anxiety F41.9 ; Chronic tension headaches G44.229 ; Mitral valve prolapse I34.1 and CAD (coronary artery disease) I25.10 [place] [address] 36797- 2940 Dec, Post-traumatic stress disorder, unspecified F43.10 ; Major depressive disorder, recurrent, moderate F33.1 and Problems related to release from alf Z65.2 [place] [address] [address] Nov, Chronic pain G89.[address] [address]- [address] Nov, Post-traumatic stress disorder, unspecified F43.10 ; Major depressive disorder, recurrent, moderate F33.1 and Problems related to release from alf Z65.2 [place] [address] [address]- [address] Oct, [place] [address] [address]- [address]245 23 Oct, 2015 [place] [address] [address]- 9[address] 16 Oct, 2015 Post-traumatic stress disorder, unspecified F43.10 ; Major depressive disorder, recurrent, moderate F33.1 and Problems related to release from alf Z65.2 [place] [address] [address]- 1380 08 Oct, 2015 [place] 799361- 3428 07 Oct, 2015 Environmental allergies Z91.09 ; Cough R05 and Open-angle glaucoma of both eyes H40.10X0 [place] 799362- [address]46 Sep, [facility] [address], [place] [address] Sep, Post-traumatic stress disorder, unspecified F43.10 ; Major depressive disorder, recurrent, moderate F33.1 and Problems related to release from alf Z65.2 [place] [address] [place] [id number] [place] [address] 57771- 4418 Sep, Chronic pain G89.29 [place] [address] [place] [id number] [place] [address] 91323- 9990 Sep, Pain in left shoulder M25.512 ; Pain in right shoulder M25.511 and Other chronic pain G89.29 [place] [address] [place] [id number] [place] [address] 73288- 4964 Sep, [place] [address] [place] [id number] [place] [address] 21567- 7877 Sep, [facility] [address] [place] [id number] [place] [address] 48147- 2352 Sep, [facility] [id number] [place] [id number] Aug, Dental examination Z01.20 [place] [id number] [place] [address] 21474- 3387 Aug, Post-traumatic stress disorder, unspecified F43.10 ; Open- angle glaucoma of both eyes H40.10X0 and Problems related to release from alf Z65.2 [place] [address], [place] [address] Aug, [place] [address] [place] [id number] [place] [address] 36466- 0395 Aug, Sleep apnea, obstructive G47.33 ; Obesity E66.9 ; Hyperlipidemia E78.5 ; Bilateral headaches R51 ; HTN (hypertension) I10 ; Post- traumatic stress disorder, unspecified F43.10 ; Anxiety F41.9 ; Neuropathy G62.9 ; Glaucoma H40.9 and Chronic pain G89.29 [facility] [address] [place] [id number] [id number] Aug, Encounter for dental examination Z01.20 [facility] [id number] [place] [address] 62869- 5384 Aug, Post-traumatic stress disorder, unspecified F43.10 ; Major depressive disorder, recurrent, moderate F33.1 and Problems related to release from alf Z65.2 [facility] [address], [place] [address] Aug, [facility] [id number] [place] [address] 29534- 4062 Jul, [facility] [id number] [place] [address] 76350- 5090 Jul, Post-traumatic stress disorder, unspecified F43.10 and Major depressive disorder, recurrent, moderate F33.1 [facility] [address], [place] [address] 7[address] Jul, [facility] [address], [place] [address] Jul, [facility] [address], [place] [address] 50[address] Jul, Chronic pain G89.29 [facility] [address], [place] [address] June, Post-traumatic stress disorder, unspecified F43.10 and Major depressive disorder, recurrent, moderate F33.1 [facility] [address], [place] [address] June, [facility] [address] [place] [id number] [place] [address] 53079- 9874 June, Chronic pain G89.29 [facility] [address], [place] [address] 7[address] June, Post-traumatic stress disorder, unspecified F43.10 and Major depressive disorder, recurrent, moderate F33.1 [facility] [id number] [place] [address] 53264- 1982 May, Post-traumatic stress disorder, unspecified F43.10 and Major depressive disorder, recurrent, moderate F33.1 [facility] [id number] [place] [address] 06756- 1567 May, [facility] [address] [place] [id number] [place] [address] 79776- 2423 May, [facility] [address] [place] [id number] [place] [address] 63117- 1432 May, [facility] [address] [place] [id number] [place] [address] 27154- 3626 Apr, [facility] [address] [place] [id number] [place] [address] 82499- 2926 Apr, Post-traumatic stress disorder, unspecified F43.10 and Sleep apnea, obstructive G47.33 [facility] [address] [place] [id number] [place] [address] 49245- 8583 Apr, [facility] [address] [place] [id number] [place] [address] 04932- 4142 Apr, Shoulder pain, left M25.512 [facility] [address] [place] [id number] [place] [address] 66029- 3609 18 Apr, 2015 Post-traumatic stress disorder, unspecified F43.10 and Major depressive disorder, recurrent, moderate F33.1 [facility] [address], [place] [address]- 2599 17 Apr, 2015 [facility] [address] [place] [id number] [place] [address] 30569- 8777 11 Apr, 2015 [facility] [address] [place] [id number] [place] [address] 97088- 0620 08 Apr, 2015 [facility] [address] [place] [id number] [place] [address] 10639- 3656 Apr, Left shoulder pain M25.512 [place] [address] [place] [id number] [place] [address] 20978- 5057 Mar, [place] [address] [place] [id number] [place] [address] 544826- 9265 Mar, [place] [address] [place] [id number] [place] [address] 86528- 6052 Mar, [place] [address] [place] [id number] [place] [address] 10740- 9840 Mar, Sleep apnea, obstructive G47.33 ; Obesity E66.9 ; Chronic pain G89.29 ; Hyperlipidemia E78.5 ; HTN (hypertension) I10 ; Blindness and low vision H54.10 ; Major depressive disorder, recurrent, moderate F33.1 and Anxiety F41.[address] 41508- 3620 Mar, [place] [address] [place] [id number] [place] [address] 95034- 9899 Mar, Post-traumatic stress disorder, unspecified F43.10 and Major depressive disorder, recurrent, moderate F33.1 [place] [address] [place] [id number] [place] [address] 12313- 1323 08 Mar, 2015 [place] [address] [place] [id number] [place] [address] 50170- 7726 Mar, HTN (hypertension) I10 ; Blindness and low vision H54.10 ; Obesity E66.9 ; Hyperlipidemia E78.5 ; Glaucoma H40.9 ; Chronic pain G89.29 and CAD (coronary artery disease) I25.10 [place] [address] [place] [id number] [place] [address] 15895- 5091 Feb, [place] [address] [place] [id number] [place] [address] 11546- 9898 Feb, Post-traumatic stress disorder, unspecified F43.10 ; Obesity E66.9 ; Sleep apnea, obstructive G47.33 and Open-angle glaucoma of both eyes H40.10X0 [place] [address] [place] [id number] [place] [address] 61199- 8331 Feb, Post-traumatic stress disorder, unspecified F43.10 and Major depressive disorder, recurrent, moderate F33.1 [place] [address] [place] [id number] [place] [address] 58838- 3390 Feb, [place] [address] 79317- 4384 Feb, [place] [address] [place] [id number] [place] [address] 18245- 5620 Feb, HTN (hypertension) I10 ; Post-traumatic stress disorder, unspecified F43.10 ; Blindness and low vision H54.10 ; Obesity E66.9 ; Hyperlipidemia E78.5 ; Chronic pain G89.29 ; Glaucoma H40.9 ; Mitral valve prolapse I34.1 and Bilateral headaches R51 [place] [address] [place] [id number] [place] [address] 14696- 3962 Feb, [place] [address] 21260- 0093 Feb, Post-traumatic stress disorder, unspecified F43.10 and Major depressive disorder, recurrent, moderate F33.1 [place] [address] [place] [id number] [place] [address] 46467- 8210 Feb, [place] [address] [place] [id number] [place] [address] 33506- 7116 Feb, [place] [address] [place] [id number] [place] [address] 52003- 2800 Jan, [place] [address] 36680- 0243 Jan, [place] [address] [place] [id number] [place] [address] 02963- 6373 Jan, Obesity E66.9 ; HTN (hypertension) I10 ; Blindness and low vision H54.10 ; Major depressive disorder, recurrent, moderate F33.1 ; Glaucoma H40.9 ; Hyperlipidemia E78.5 ; Sleep apnea, obstructive G47.33 ; Chronic pain G89.29 ; Anxiety F41.9 ; Chronic tension headaches G44.229 and Cough R05 [place] [address] [place] [id number] [place] [address] 17403- 3329 Jan, [place] [address] 98175- 9302 Jan, [address] [address] 4125 Jan, Post-traumatic stress disorder, unspecified F43.10 ; Obesity E66.9 ; Sleep apnea, obstructive G47.33 and Open-angle glaucoma of both eyes H40.10X0 [address] 58501- 6481 Jan, [place] [address] [place] 423607- 4192 Jan, Post-traumatic stress disorder, unspecified F43.10 and Major depressive disorder, recurrent, moderate F33.1 [place] [id number] [place] [address] 09251- 0408 Dec, [place] [id number] [place] [address] 43859- 1955 Dec, Sleep apnea, obstructive G47.33 ; Obesity E66.9 ; Hyperlipidemia E78.5 ; Glaucoma H40.9 ; Chronic pain G89.29 ; HTN (hypertension ) I10 ; Blindness and low vision H54.10 ; Anxiety F41.9 and CAD (coronary artery disease) I25.10 [place] [id number]- 2909 Nov, [place] [id number] [place] [address] 30346- 3005 Nov, [address] [place] [address]- 9645 Nov, [facility] [address] 00062- 4163 Nov, [facility] [address] 10457- 0760 Nov, [facility] [address] 23976- 2929 Nov, Encounter for immunization Z23 ; Sleep apnea, obstructive G47.33 ; Obesity E66.9 ; Hyperlipidemia E78.5 ; Glaucoma H40.9 ; Chronic pain G89.29 ; Anxiety F41.9 ; Chronic tension headaches G44.229 and HTN (hypertension ) I10 [facility] [address] 44609- 9894 Nov, [facility] [address] 43191- 6581 Nov, [facility] [address] 58106- 6064 06 Nov, 2014 Dizziness R42 [facility] [address] 89724- 6302 Nov, [facility] [address] 45851- 9481 29 Oct, 2014 [facility] [address] 97855- 9044 28 Oct, 2014 [facility] [address] 78551- 5410 Oct, [facility] [address] 84096- 0795 Oct, [facility] [address] 10716- 5459 17 Oct, 2014 Dizziness 780.4 ; Essential hypertension 401.9 ; Obesity 278.00 ; Hyperlipidemia 272.4 ; Chronic pain 338.29 ; Glaucoma 365.9 and Anxiety 300.00 [facility] [address] [place] [id number], [place] [address]- 7241 Oct, Essential hypertension 401.9 ; Hyperlipidemia 272.4 ; Glaucoma 365.9 ; Obesity 278.00 ; Chronic pain 338.29 and Allergy to insects V15.06 [facility] [address], [place] [address]- 1849 Sep, [facility] [address] [place] [id number] [place] [address] 85930- 5538 Sep, [facility] [address] [place] [id number] [address]- 4789 Sep, [facility] [id number] [place] [address] 71777- 6300 Sep, [facility] [id number] [place] [address] 63690- 1252 Aug, Essential hypertension 401.9 ; Obesity 278.00 ; Hyperlipidemia 272.4 ; Glaucoma 365.9 ; Lipoma 214.9 ; Mitral valve prolapse 424.0 ; Angina at rest 413.9 ; Lymphedema 457.1 and Chronic pain 338.29 IMMUNIZATIONS No Known Immunizations SOCIAL HISTORY Never Assessed REASON FOR VISIT Cough/runny nose x2 weeks 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 PLAN OF CARE Activity Details Follow Up prn Reason: VITAL SIGNS Height 67 in 2017-04-17 Weight 265.4 lbs 2017-04-17 Temperature 98.1 degrees Fahrenheit 2017-04-17 Heart Rate 92 bpm 2017-04-17 Respiratory Rate 20 2017-04-17 BMI 41.56 kg/m2 2017-04-17 Blood pressure systolic 128 mmHg 2017-04-17 Blood pressure diastolic 80 mmHg 2017-04-17 MEDICATIONS Medication Instructions Dosage Frequency Start Date End Date Duration Status Gabapentin 300 MG TAKE ONE CAPSULE BY MOUTH TWICE DAILY 90 Active Oxycodone HCl 10 mg Orally 2 times a day 1 tablet as needed 12h Apr, May, 30 days Active Topamax 100 MG TAKE ONE TABLET BY MOUTH TWICE DAILY 90 Active Xanax 1 MG Orally Twice a day for anxiety 1 tablet Active Benzonatate 200 MG Orally Three times a day 1 capsule 8h Apr, Apr, 7 days Active EPINEPHrine HCl 0.3 mg as directed Oct, 30 days Active Zofran ODT 4 MG Orally every 8 hrs prn 1 tablet on the tongue and allow to dissolve 10 Active Azithromycin 250 MG Orally Once a day 2 tablets on the first day, then 1 tablet daily for 4 days 24h 10 Apr, 2017 15 Apr, 2017 5 day(s) Active Mucinex 600 MG Orally every 12 hrs 1 tablet as needed 12h Active Timolol Hemihydrate 0.5 % Ophthalmic 2 times a day 1 drop into both eyes 12h Dec, Active Cartia XT 300 MG Orally Once a day 1 capsule 24h 90 days Active Hydrocodone-Acetaminophen 7.5-325 MG Orally 4 times a day 1 tablet 6h 19 Mar, 2017 28 days Active Atorvastatin Calcium 20 MG TAKE ONE TABLET BY MOUTH ONCE DAILY 90 Active Nitrostat 0.4 MG Sublingual every 5 minutes x 3 PRN 1 tablet 30 days Active Ondansetron 4 MG DISSOLVE ONE TABLET BY MOUTH EVERY 8 HOURS NEEDED ( PLEASE CALL TO TRANSITION PROVIDERS IF NOT DONE SO ALREADY) 10 Active Metoprolol Succinate ER 200 mg [...]
--- OUTSIDE RECORDS SUMMARY | 2018-02-04 15:02 | XMS REPORT ---
Author Author MARIA ANTONIA MORA Organization [facility] Address [address] [place] [address] Care Team Providers Care Business Services Director Name Role Phone MARIA ANTONIA MORA Unavailable PROBLEMS Type Condition ICD9-CM Code IIE93-DF Code Onset Dates Condition Status SNOMED Code Problem Primary insomnia F51.01 Active 6300866 Problem Other male erectile dysfunction N52.8 Active 580748593 Problem Morbid (severe) obesity due to excess calories E66.01 Active 697392027 Problem Sarcoidosis D86.9 Active 19139756 Problem Blindness and low vision H54.10 Active 199411049 Problem Problems related to release from skilled nursing Z65.2 Active [id number] Problem Myocarditis, unspecified chronicity, 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 Active 80664022 Problem Chronic pain G89.29 Active 55591737 Problem 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 Active 510492751 Problem Body mass index (BMI) of 40.0-44.9 in adult Z68.41 Active 194510810 Problem Chronic pain syndrome G89.4 Active 765364127 Problem Migraine without aura and without status migrainosus, not intractable G43.009 Active 805043240 Problem Anxiety F41.9 Active 48744300 Problem Major depressive disorder, recurrent, moderate F33.1 Active 41972856 Problem HTN (hypertension) I10 Active 23549209 Problem Chronic tension headaches G44.229 Active 551382285 Problem CAD (coronary artery disease) I25.10 Active 32571510 Problem Post-traumatic stress disorder, chronic F43.12 Active 061995067 Problem Hyperlipidemia E78.5 Active 16329508 Problem Open-angle glaucoma of both eyes H40.10X0 Active 76956525 Problem Environmental allergies Z91.09 Active 655041204 Problem Sleep apnea, obstructive G47.33 Active 80423038 Problem Mitral valve prolapse I34.1 Active 446359856 Problem Arrhythmia as indication for cardiac pacemaker replacement I49.9 Active 73875451 ALLERGIES No Information ENCOUNTERS Encounter Location Date Diagnosis [facility] [id number] [place] [address] 48495- 6385 Oct, [facility] [id number] [place] [address] 39345- 4802 Sep, [facility] [id number] [place] [address] 47672- 2684 Aug, [facility] [address] 45182- 2166 Aug, [facility] [id number] [place] [address] 04030- 2106 Aug, Left leg pain M79.605 [facility] [id number] [place] [address] 97203- 6666 26 Jul, 2017 Post-traumatic stress disorder, chronic F43.12 ; Anxiety F41.9 ; Problems related to release from skilled nursing Z65.2 and BMI 40.0-44.9, adult Z68.41 [facility] [id number] [place] [address] 59043- 2763 20 Jul, 2017 HTN (hypertension) I10 ; Body mass index (BMI) of 40.0-44.9 in adult Z68.41 and Acute swimmer''s ear of both sides H60.333 [facility] [id number] [place] [address] 30306- 2547 19 Jul, 2017 Glaucoma H40.9 [facility] [id number] [place] [address] 37347- 7608 14 Jul, 2017 [facility] [id number] [place] [address] 15202- 2535 13 Jul, 2017 Sarcoidosis D86.9 [facility] [id number] [place] [address] 89190- 2324 12 Jul, 2017 Left leg pain M79.605 [facility] [id number] [place] [address] 57701- 6415 12 Jul, 2017 Sarcoidosis D86.9 [facility] [address] [address] 9442 Jul, Post-traumatic stress disorder, unspecified F43.10 ; Major depressive disorder, recurrent, moderate F33.1 and Problems related to release from skilled nursing Z65.2 [facility] [id number] [place] [address] 14616- 2875 June, [facility] [id number] [place] [address] 35064 -5433 June, Sore throat J02.9 and BMI 40.0-44.9, adult Z68.41 [facility] [address] 78677- 6063 June, [facility] [id number] [place] [address] 80287- 6001 June, [facility] [id number] [place] [address] 71485- 1602 June, [facility] [id number] [place] [address] 85543- 9524 June, Left leg pain M79.605 [facility] [id number] [place] [address] 21364- 2588 June, Sarcoidosis D86.9 [facility] [id number] [place] [address] 23743- 0342 June, [facility] [id number] [place] [address] 59957- 4403 June, [facility] [id number] [place] [address] 71203- 8496 June, Left leg pain M79.605 [facility] [id number] [place] [address] 87949- 7339 May, [facility] [id number] [place] [address] 56605- 8129 May, [facility] [address] [address]- 4611 May, [facility] [id number] [place] [address] 91803- 8170 May, Left leg pain M79.605 [facility] [address] [place] [address] 18885- 1275 May, Post-traumatic stress disorder, unspecified F43.10 ; Major depressive disorder, recurrent, moderate F33.1 and Problems related to release from skilled nursing Z65.2 [facility] [address] [address] 7021 May, Chronic pain G89.29 ; Anxiety F41.9 ; Chest pain, unspecified type R07.9 and BMI 40.0-44.9, adult Z68.41 [facility] [id number] [place] [address] 58523- 4122 30 Apr, 2017 [facility] [id number] [place] [address] 23578- 8219 Apr, Left leg pain M79.605 [facility] [id number] [place] [address] 31980- 3448 27 Apr, 2017 Post-traumatic stress disorder, unspecified F43.10 ; Problems related to release from skilled nursing Z65.2 ; Anxiety F41.9 and BMI 40.0-44.9 , adult Z68.41 [facility] [address] [place] [address] 12804- 2580 Apr, [facility] [address] [place] [address] 08777- 4234 Apr, Left leg pain M79.605 [facility] [address] [place] [address] 05845- 5687 Apr, Post-traumatic stress disorder, unspecified F43.10 ; Major depressive disorder, recurrent, moderate F33.1 and Problems related to release from skilled nursing Z65.2 [facility] [address] 18735- 8049 Apr, [facility] [address] 42221- 7803 Apr, Chronic pain G89.29 ; 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 ; Morbid (severe) obesity due to excess calories E66.01 ; Anxiety F41.9 and BMI 40.0-44.9, adult Z68.41 [facility] [address] 21678 -0316 Apr, Sore throat J02.9 and BMI 40.0-44.9, adult Z68.[address] 56319- 7939 02 Apr, 2017 Left leg pain M79.605 [facility] [address] [id number] Mar, Dental examination Z01.20 [facility] [address] 65622- 8733 Mar, [facility] [address] [address] -1965 Mar, Cough R05 ; Viral gastroenteritis A08.4 and BMI 40.0-44.9, adult Z68.[address] 68508- 2941 Mar, Left leg pain M79.605 [facility] [address] 75170- 3896 Mar, Post-traumatic stress disorder, unspecified F43.10 ; Major depressive disorder, recurrent, moderate F33.1 and Problems related to release from skilled nursing Z65.2 [facility] [address] 43689- 4294 Feb, Left leg pain M79.605 [facility] [address] 59021- 5370 Feb, [facility] [id number] [place] [address] 72724- 4279 Feb, BMI 40.0-44.9, adult Z68.41 ; Chronic pain syndrome G89.4 ; Migraine without aura and without status migrainosus, not intractable G43.009 ; Mitral valve prolapse I34.1 and 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 [facility] [address] 29822- 8195 Feb, Post-traumatic stress disorder, chronic F43.12 ; Anxiety F41.9 ; Problems related to release from skilled nursing Z65.2 and BMI 40.0-44.9, adult Z68.41 [facility] [id number] [place] [address] 97136- 1509 Feb, Post-traumatic stress disorder, unspecified F43.10 ; Major depressive disorder, recurrent, moderate F33.1 and Problems related to release from skilled nursing Z65.2 [facility] [id number] [place] [address] 49992- 8349 Feb, Left leg pain M79.605 [facility] [address] 27251- 1196 Jan, Post-traumatic stress disorder, unspecified F43.10 ; Major depressive disorder, recurrent, moderate F33.1 and Problems related to release from skilled nursing Z65.2 [facility] [id number] [place] [address] 40105- 3119 Jan, [facility] [id number] [place] [address] 15377- 1249 Jan, [facility] [address] 29820- 6239 Jan, Anxiety F41.9 [facility] [id number] [place] [address] 89568- 9710 Jan, Left leg pain M79.605 [facility] [address] [place] [address]- 0556 Dec, Left leg pain M79.605 [facility] [id number] [place] [address] 71161- 9038 Dec, [facility] [id number] [place] [address] 92173- 1261 Dec, Post-traumatic stress disorder, unspecified F43.10 ; Major depressive disorder, recurrent, moderate F33.1 and Problems related to release from skilled nursing Z65.2 [facility] [id number] [place] [address] 55563- 0514 Nov, Chronic pain G89.29 and Anxiety F41.9 [facility] [id number] [place] [address] 21990- 3137 Nov, Chronic pain G89.29 and Anxiety F41.9 [facility] [address] 90882- 0582 16 Nov, 2016 Post-traumatic stress disorder, unspecified F43.10 ; Major depressive disorder, recurrent, moderate F33.1 and Problems related to release from skilled nursing Z65.2 [facility] [id number] [place] [address] 29070- 7231 09 Nov, 2016 Other abnormal findings in specimens from other organs, systems and tissues R89.8 ; Other male erectile dysfunction N52.8 ; Body mass index (BMI) of 40.0-44.9 in adult Z68.41 and Morbid (severe) obesity due to excess calories E66.01 [facility] [address] [place] [address] 49192- 6536 02 Nov, 2016 Post-traumatic stress disorder, unspecified F43.10 ; Major depressive disorder, recurrent, moderate F33.1 and Problems related to release from skilled nursing Z65.2 [facility] [address] [place] [address] [id number] Oct, Dental examination Z01.20 [facility] [id number] [place] [address] 01214- 1752 Oct, [facility] [id number] [place] [address] 20420- 6918 Oct, Encounter for immunization Z23 [facility] [id number] [place] [address] 28983- 2178 Oct, Chronic pain G89.29 ; Anxiety F41.9 ; Arrhythmia as indication for cardiac pacemaker replacement I49.9 and Glaucoma H40.9 [facility] [id number] [place] [address] 02013- 3855 Oct, Anxiety F41.9 ; Post-traumatic stress disorder, chronic F43.12 and Problems related to release from skilled nursing Z65.2 [facility] [id number] [place] [address] 46957- 2554 Oct, Post-traumatic stress disorder, unspecified F43.10 ; Major depressive disorder, recurrent, moderate F33.1 and Problems related to release from skilled nursing Z65.2 [facility] [id number] [place] [address] 31839- 0826 Sep, Chronic pain G89.29 and Anxiety F41.9 [facility] [id number] [place] [address] 23004- 3915 Sep, Post-traumatic stress disorder, unspecified F43.10 ; Major depressive disorder, recurrent, moderate F33.1 and Problems related to release from skilled nursing Z65.2 [facility] [address] [place] [address] 95152- 3315 Sep, Post-traumatic stress disorder, unspecified F43.10 ; Major depressive disorder, recurrent, moderate F33.1 and Problems related to release from skilled nursing Z65.2 [facility] [id number] [place] [address] 75911- 6917 Sep, Chronic pain G89.29 [place] [id number] [place] [address] 86161- 6037 Aug, Dental caries, unspecified K02.9 [place] [address] [place] [address]- 8994 Aug, Sleep apnea, obstructive G47.33 ; Obesity E66.9 ; Chronic pain G89.29 ; HTN (hypertension) I10 ; Major depressive disorder, recurrent, moderate F33.1 ; Anxiety F41.9 ; Chronic tension headaches G44.229 ; Mitral valve prolapse I34.1 ; Arrhythmia as indication for cardiac pacemaker replacement I49.9 ; Dental caries, unspecified K02.9 ; Primary insomnia F51.01 and Hyperlipidemia E78.5 [facility] [id number] [place] [address] 95713- 1434 Aug, Post-traumatic stress disorder, unspecified F43.10 ; Major depressive disorder, recurrent, moderate F33.1 and Problems related to release from skilled nursing Z65.2 [facility] [id number] [place] [address] 85900- 9068 Aug, Dental examination Z01.20 [facility] [id number] [place] [address] [id number] Aug, Dental examination Z01.20 [facility] [id number] [place] [address] 32579- 2334 Aug, Post-traumatic stress disorder, unspecified F43.10 ; Major depressive disorder, recurrent, moderate F33.1 and Problems related to release from skilled nursing Z65.2 [facility] [id number] [place] [address] 11822- 8136 Aug, Chronic pain G89.29 and Primary insomnia F51.01 [facility] [id number] [place] [address] 33675- 5655 Jul, [facility] [address] 70770- 4082 Jul, [facility] [id number] [place] [address] 23497- 8767 Jul, Nausea R11.0 [facility] [address] 78393- 7319 Jul, Arrhythmia as indication for cardiac pacemaker replacement I49.9 [facility] [address] [place] [address] 81448- 4146 13 Jul, 2016 Post-traumatic stress disorder, unspecified F43.10 ; Major depressive disorder, recurrent, moderate F33.1 and Problems related to release from skilled nursing Z65.2 [facility] [id number] [place] [address] 94973- 2116 09 Jul, 2016 [address] F41.[address] 79224- 2493 08 Jul, 2016 Chronic pain G89.[address] 56015- 3840 02 Jul, 2016 Sleep apnea, obstructive G47.33 ; Hyperlipidemia E78.5 ; Chronic pain G89.29 ; Blindness and low vision H54.10 ; Major depressive disorder, recurrent, moderate F33.1 ; Anxiety F41.9 ; Mitral valve prolapse I34.1 ; Arrhythmia as indication for cardiac pacemaker replacement I49.9 ; Primary insomnia F51.01 ; Bilateral headaches R51 and Environmental allergies Z91.09 [place] [id number] [place] [address] 75467- 8399 Jul, Post-traumatic stress disorder, unspecified F43.10 ; Major depressive disorder, recurrent, moderate F33.1 and Problems related to release from skilled nursing Z65.2 [place] [id number] [place] [address] 39425- 5603 June, Post-traumatic stress disorder, chronic F43.12 ; Anxiety F41.9 ; Problems related to release from skilled nursing Z65.2 ; Sleep apnea, obstructive G47.33 and Primary insomnia F51.01 [place] [id number] [place] [address] 26698- 7690 June, [facility] [id number] [place] [address] 90973- 7631 June, [place] [id number] [place] [address] 00754- 4881 June, [facility] [address] [place] [address] 23736- 4438 June, Chronic pain G89.29 [facility] [address] [place] [address] 87356- 0437 June, Chronic pain G89.29 [facility] [id number] [place] [address] 06734- 3678 June, Lipoma of left lower extremity D17.24 ; Open wound T14.8 and Swelling of left lower extremity M79.89 [facility] [id number] [place] [address] 45551- 3041 June, Post-traumatic stress disorder, unspecified F43.10 ; Major depressive disorder, recurrent, moderate F33.1 and Problems related to release from skilled nursing Z65.2 [facility] [id number] [place] [address] 94200- 4224 May, Lipoma of left lower extremity D17.24 ; Major depressive disorder, recurrent, moderate F33.1 ; Sleep apnea, obstructive G47.33 ; Hyperlipidemia E78.5 ; Obesity E66.9 ; HTN (hypertension) I10 ; Glaucoma H40.9 ; CAD (coronary artery disease) I25.10 ; Chronic tension headaches G44.229 ; Chronic pain G89.29 ; Anxiety F41.9 ; Nausea R11.0 and Primary insomnia F51.01 [facility] [address] [place] [address] 48809- 7952 May, [facility] [address] [place] [address] 50650- 5414 May, Chronic pain G89.29 [facility] [id number] [place] [address] 76482- 0223 May, [facility] [address] [place] [address] 06807- 7575 Apr, Post-traumatic stress disorder, unspecified F43.10 ; Major depressive disorder, recurrent, moderate F33.1 and Problems related to release from skilled nursing Z65.2 [facility] [id number] [place] [address] 86241- 1172 Apr, Primary insomnia F51.01 ; Post-traumatic stress disorder, chronic F43.12 and Problems related to release from skilled nursing Z65.2 [facility] [id number] [place] [address] 03728- 8300 Apr, Post-traumatic stress disorder, unspecified F43.10 ; Major depressive disorder, recurrent, moderate F33.1 and Problems related to release from skilled nursing Z65.2 [facility] [id number] [place] [address] 46963- 7255 Apr, [facility] [id number] [place] [address] 22886- 1492 Apr, Sleep apnea, obstructive G47.33 ; Chronic pain G89.29 ; HTN (hypertension) I10 ; Mitral valve prolapse I34.1 ; Shoulder pain, left M25.512 ; Arrhythmia as indication for cardiac pacemaker replacement I49.9 ; Glaucoma H40.9 ; Bilateral headaches R51 ; Environmental allergies Z91.09 ; Primary insomnia F51.01 and Nausea R11.0 [facility] [id number] [place] [address] 11601- 7941 Apr, [facility] [id number] [place] [address] 55646- 4390 Apr, [facility] [id number] [place] [address] 861811- 4949 Apr, Post-traumatic stress disorder, unspecified F43.10 ; Major depressive disorder, recurrent, moderate F33.1 and Problems related to release from skilled nursing Z65.2 [facility] [id number] [place] [address] 42214- 8796 Apr, HTN (hypertension) I10 [facility] [id number] [place] [address] 59125- 4264 Apr, HTN (hypertension) I10 [facility] [address] [address]- 2778 14 Mar, 2016 Chronic pain G89.29 ; Primary insomnia F51.01 and Problems related to release from skilled nursing Z65.2 [facility] [address] [place] [address] 06031- 6025 07 Mar, 2016 Post-traumatic stress disorder, unspecified F43.10 ; Major depressive disorder, recurrent, moderate F33.1 and Problems related to release from skilled nursing Z65.2 [facility] [id number] [place] [address] 05771- 2585 Feb, Post-traumatic stress disorder, unspecified F43.10 ; Major depressive disorder, recurrent, moderate F33.1 and Problems related to release from skilled nursing Z65.2 [facility] [id number] [place] [address] 39487- 1278 Feb, Chronic tension headaches G44.229 [place] [id number] [place] [address] 26335- 8942 Feb, Sleep apnea, obstructive G47.33 ; Obesity [...] pacemaker replacement I49.9 and Primary insomnia F51.[address] [place] [address] 61671- 9045 17 Feb, 2016 Post-traumatic stress disorder, unspecified F43.10 and Chronic pain G89.29 [facility] [id number] [place] [address] 57393- 1565 Feb, [facility] [address] [place] [address] [id number] Feb, Dental caries K02.9 [facility] [id number] [place] [address] 76153- 8637 Feb, [address] 79319- 6510 Feb, Post-traumatic stress disorder, unspecified F43.10 ; Major depressive disorder, recurrent, moderate F33.1 and Problems related to release from skilled nursing Z65.[address] 30259- 7707 Jan, Sleep apnea, obstructive G47.33 and Chronic pain G89.[address] 68244- 7751 Jan, [address] 01270- 9669 Jan, Dental examination Z01.[address] 60991- 0301 Jan, [address] 61400- 3504 Jan, [address] 70786- 9515 Dec, Post-traumatic stress disorder, unspecified F43.10 ; Major depressive disorder, recurrent, moderate F33.1 and Problems related to release from skilled nursing Z65.[address] 38515- 0822 Dec, Encounter for immunization Z23 ; Problems related to release from skilled nursing Z65.2 ; Sleep apnea, obstructive G47.33 and Post-traumatic stress disorder, chronic F43.12 [place] [id number] [place] [address] 41576- 1409 Dec, Sleep apnea, obstructive G47.33 ; Hyperlipidemia E78.5 ; Chronic pain G89.29 ; Glaucoma H40.9 ; HTN (hypertension) I10 ; Post-traumatic stress disorder, unspecified F43.10 ; Anxiety F41.9 ; Chronic tension headaches G44.229 ; Mitral valve prolapse I34.1 and CAD (coronary artery disease) I25.10 [facility] [id number] [place] [address] 93163- 9222 Dec, Post-traumatic stress disorder, unspecified F43.10 ; Major depressive disorder, recurrent, moderate F33.1 and Problems related to release from skilled nursing Z65.2 [facility] [address] 59004- 1101 Nov, Chronic pain G89.29 [place] [address] 840985- 7703 Nov, Post-traumatic stress disorder, unspecified F43.10 ; Major depressive disorder, recurrent, moderate F33.1 and Problems related to release from skilled nursing Z65.2 [place] [address] [address] Oct, [facility] [address] [address] Oct, [place] [address] [address] 16 Oct, 2015 Post-traumatic stress disorder, unspecified F43.10 ; Major depressive disorder, recurrent, moderate F33.1 and Problems related to release from skilled nursing Z65.2 [place] [address] [place] [id number] [place] [address] 08 Oct, 2015 [place] [address] [address] 07 Oct, 2015 Environmental allergies Z91.09 ; Cough R05 and Open-angle glaucoma of both eyes H40.10X0 [address] [address] Sep, [facility] [address] [address] Sep, Post-traumatic stress disorder, unspecified F43.10 ; Major depressive disorder, recurrent, moderate F33.1 and Problems related to release from skilled nursing Z65.2 [facility] [id number] [place] [address] 40848- 2427 Sep, Chronic pain G89.29 [facility] [id number] [place] [address] 62523- 5358 Sep, Pain in left shoulder M25.512 ; Pain in right shoulder M25.511 and Other chronic pain G89.29 [facility] [id number] [place] [address] 46153- 1568 Sep, [facility] [id number] [place] [address] 91954- 3471 Sep, [facility] [address] 97758- 3559 Sep, [facility] [address] [id number] Aug, Dental examination Z01.20 [facility] [id number] [place] [address] 81337- 0623 Aug, Post-traumatic stress disorder, unspecified F43.10 ; Open- angle glaucoma of both eyes H40.10X0 and Problems related to release from skilled nursing Z65.2 [facility] [id number] [place] [address] 51622- 8154 Aug, [facility] [id number] [place] [address] 40747- 5752 Aug, Sleep apnea, obstructive G47.33 ; Obesity E66.9 ; Hyperlipidemia E78.5 ; Bilateral headaches R51 ; HTN (hypertension) I10 ; Post- traumatic stress disorder, unspecified F43.10 ; Anxiety F41.9 ; Neuropathy G62.9 ; Glaucoma H40.9 and Chronic pain G89.29 [facility] [id number] [place] [address] [id number] Aug, Encounter for dental examination Z01.20 [facility] [address] [place] [address] [id number]- 2546 Aug, Post-traumatic stress disorder, unspecified F43.10 ; Major depressive disorder, recurrent, moderate F33.1 and Problems related to release from skilled nursing Z65.2 [facility] [id number] [address] 6[address] Aug, [facility] [id number], [place] [address] 9[address] Jul, [facility] [id number] [place] [address] 75710- 6736 Jul, Post-traumatic stress disorder, unspecified F43.10 and Major depressive disorder, recurrent, moderate F33.1 [facility] [id number] [place] [address] 21174- 0550 Jul, [facility] [id number], [place] [address] 2094 Jul, [facility] [id number] [place] [address] 64397- 9269 Jul, Chronic pain G89.29 [facility] [id number] [place] [address] 16516- 9971 June, Post-traumatic stress disorder, unspecified F43.10 and Major depressive disorder, recurrent, moderate F33.1 [facility] [id number], [place] [address] 7608 June, [facility] [id number] [place] [address] 78364- 3634 June, Chronic pain G89.29 [facility] [id number] [place] [address] 51253- 8530 June, Post-traumatic stress disorder, unspecified F43.10 and Major depressive disorder, recurrent, moderate F33.1 [facility] [address], [place] [address] 9637 May, Post-traumatic stress disorder, unspecified F43.10 and Major depressive disorder, recurrent, moderate F33.1 [facility] [address], [place] [address] 4058 May, [facility] [id number] [place] [address] 43901- 2722 May, [facility] [id number] [place] [address] 71415- 0493 May, [facility] [id number] [place] [address] 45718- 7826 Apr, [facility] [id number] [place] [address] 21530- 4522 Apr, Post-traumatic stress disorder, unspecified F43.10 and Sleep apnea, obstructive G47.33 [facility] [id number] [place] [address] 30440- 7204 Apr, [facility] [id number] [place] [address] 46062- 9117 Apr, Shoulder pain, left M25.512 [facility] [id number] [place] [address] 78616- 2778 Apr, Post-traumatic stress disorder, unspecified F43.10 and Major depressive disorder, recurrent, moderate F33.1 [facility] [address], [place] [address]- 9820 Apr, [facility] [id number] [place] [address] 02684- 5341 Apr, [facility] [id number] [place] [address] 81828- 8046 Apr, [facility] [id number] [place] [address] 24760- 6901 Apr, Left shoulder pain M25.512 [facility] [id number] [place] [address] 46091- 8815 Mar, [facility] [id number] [place] [address] 47588- 4478 Mar, [facility] [id number] [place] [address] 46355- 2821 Mar, [facility] [id number] [place] [address] 65508- 3290 Mar, Sleep apnea, obstructive G47.33 ; Obesity E66.9 ; Chronic pain G89.29 ; Hyperlipidemia E78.5 ; HTN (hypertension) I10 ; Blindness and low vision H54.10 ; Major depressive disorder, recurrent, moderate F33.1 and Anxiety F41.9 [facility] [id number] [place] [address] 51645- 9269 Mar, [facility] [id number] [place] [address] 28419- 5497 Mar, Post-traumatic stress disorder, unspecified F43.10 and Major depressive disorder, recurrent, moderate F33.1 [facility] [id number] [place] [address] 04499- 4638 Mar, [facility] [id number] [place] [address] 41458- 4593 Mar, HTN (hypertension) I10 ; Blindness and low vision H54.10 ; Obesity E66.9 ; Hyperlipidemia E78.5 ; Glaucoma H40.9 ; Chronic pain G89.29 and CAD (coronary artery disease) I25.10 [facility] [id number] [place] [address] 99754- 3451 Feb, [facility] [id number] [place] [address] 32111- 6961 Feb, Post-traumatic stress disorder, unspecified F43.10 ; Obesity E66.9 ; Sleep apnea, obstructive G47.33 and Open-angle glaucoma of both eyes H40.10X0 [facility] [id number] [place] [address] 43901- 4837 Feb, Post-traumatic stress disorder, unspecified F43.10 and Major depressive disorder, recurrent, moderate F33.1 [facility] [id number] [place] [address] 29113- 8035 Feb, [facility] [address] [place] [address]- 4745 Feb, [facility] [id number] [place] [address] 06401- 0894 Feb, HTN (hypertension) I10 ; Post-traumatic stress disorder, unspecified F43.10 ; Blindness and low vision H54.10 ; Obesity E66.9 ; Hyperlipidemia E78.5 ; Chronic pain G89.29 ; Glaucoma H40.9 ; Mitral valve prolapse I34.1 and Bilateral headaches R51 [facility] [id number] [place] [address] 00863- 1609 Feb, [facility] [address] 19515- 1147 Feb, Post-traumatic stress disorder, unspecified F43.10 and Major depressive disorder, recurrent, moderate F33.1 [facility] [id number] [place] [address] 21234- 2943 Feb, [facility] [id number] [place] [id number] 8146 Feb, [facility] [id number] [place] [address] 47028- 5437 Jan, [facility] [id number] [place] [address] 8159 Jan, [facility] [id number] [place] [address] 99556- 5382 Jan, Obesity E66.9 ; HTN (hypertension) I10 ; Blindness and low vision H54.10 ; Major depressive disorder, recurrent, moderate F33.1 ; Glaucoma H40.9 ; Hyperlipidemia E78.5 ; Sleep apnea, obstructive G47.33 ; Chronic pain G89.29 ; Anxiety F41.9 ; Chronic tension headaches G44.229 and Cough R05 [facility] [id number] [place] [address] 16080- 1674 Jan, [facility] [address] 24195- 1681 Jan, [facility] [id number] [place] [address] 66339- 5165 Jan, Post-traumatic stress disorder, unspecified F43.10 ; Obesity E66.9 ; Sleep apnea, obstructive G47.33 and Open-angle glaucoma of both eyes H40.10X0 [facility] [id number] [place] [address] 79724- 5506 Jan, [facility] [id number] [place] [address] 112288- 9435 Jan, Post-traumatic stress disorder, unspecified F43.10 and Major depressive disorder, recurrent, moderate F33.1 [facility] [facility] [id number] [place] [address] 51162- 4135 Dec, [facility] [id number] [place] [address] 45448- 7260 Dec, Sleep apnea, obstructive G47.33 ; Obesity E66.9 ; Hyperlipidemia E78.5 ; Glaucoma H40.9 ; Chronic pain G89.29 ; HTN (hypertension ) I10 ; Blindness and low vision H54.10 ; Anxiety F41.9 and CAD (coronary artery disease) I25.10 [facility] [id number] [place] [address] 00407- 0703 Nov, [facility] [id number] [place] [address] 24088- 1350 Nov, [facility] [id number] [place] [address] 95764- 5273 Nov, [facility] [id number] [place] [address] 30488- 0822 Nov, [facility] [id number] [place] [id number]- 2546 Nov, [facility] [id number] [place] [address] 09647- 7057 Nov, Encounter for immunization Z23 ; Sleep apnea, obstructive G47.33 ; Obesity E66.9 ; Hyperlipidemia E78.5 ; Glaucoma H40.9 ; Chronic pain G89.29 ; Anxiety F41.9 ; Chronic tension headaches G44.229 and HTN (hypertension ) I10 [facility] [id number] [place] [address] 88314- 8594 Nov, [facility] [id number] [place] [address] 25343- 6558 Nov, [facility] [id number] [place] [address] 33236- 7126 Nov, Dizziness R42 [facility] [id number] [place] [address] 46728- 7180 Nov, [facility] [id number] [place] [address] 05750- 7789 Oct, [facility] [id number] [place] [address] 72959- 5794 Oct, [facility] [id number] [place] [address] 35349- 7814 Oct, [facility] [id number] [place] [address] 38665- 8460 Oct, [facility] [id number] [place] [address] 55584- 8036 Oct, Dizziness 780.4 ; Essential hypertension 401.9 ; Obesity 278.00 ; Hyperlipidemia 272.4 ; Chronic pain 338.29 ; Glaucoma 365.9 and Anxiety 300.00 [facility] [id number] [place] [address] 92422- 9175 02 Oct, 2014 Essential hypertension 401.9 ; Hyperlipidemia 272.4 ; Glaucoma 365.9 ; Obesity 278.00 ; Chronic pain 338.29 and Allergy to insects V15.06 [facility] [address] [facility] [id number] [address]- 9785 Sep, [facility] [address] [facility] [facility] [id number], [place] [address]- 8389 Sep, [facility] [address] [facility] [address] [facility] [id number], [place] [address]- 1204 Sep, [facility] [address] [facility] [address] [facility] [id number], [place] [address]- 8426 Sep, [facility] [address] [facility] [address] [facility] [id number], [place] [address]- 2247 Aug, Essential hypertension 401.9 ; Obesity 278.00 ; Hyperlipidemia 272.4 ; Glaucoma 365.9 ; Lipoma 214.9 ; Mitral valve prolapse 424.0 ; Angina at rest 413.9 ; Lymphedema 457.1 and Chronic pain 338.29 IMMUNIZATIONS No Known Immunizations SOCIAL HISTORY Never Assessed REASON FOR VISIT Pain Management Visit PLAN OF CARE VITAL SIGNS MEDICATIONS Unknown [...]
--- OUTSIDE RECORDS SUMMARY | 2018-02-04 15:02 | XMS REPORT ---
Author Author ALENA ÁLVAREZ Organization [facility] [place] Address [address] [place] [address] Care Team Providers Care Inclusion Specialist Name Role Phone ALENA ÁLVAREZ Unavailable PROBLEMS Type Condition ICD9-CM Code UNY07-KU Code Onset Dates Condition Status SNOMED Code Problem Primary insomnia F51.01 Active 9925461 Problem Other male erectile dysfunction N52.8 Active 715621404 Problem Morbid (severe) obesity due to excess calories E66.01 Active 220057944 Problem Sarcoidosis D86.9 Active 21219809 Problem Blindness and low vision H54.10 Active 394227243 Problem Problems related to release from senior living Z65.2 Active 276605846267549 Problem Myocarditis, unspecified chronicity, 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 Active 89568013 Problem Chronic pain G89.29 Active 14275017 Problem 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 Active 406204673 Problem Body mass index (BMI) of 40.0-44.9 in adult Z68.41 Active 829724773 Problem Chronic pain syndrome G89.4 Active 318905790 Problem Migraine without aura and without status migrainosus, not intractable G43.009 Active 104233041 Problem Anxiety F41.9 Active 88468253 Problem Major depressive disorder, recurrent, moderate F33.1 Active 75681229 Problem HTN (hypertension) I10 Active 81321673 Problem Chronic tension headaches G44.229 Active 627092260 Problem CAD (coronary artery disease) I25.10 Active 24524568 Problem Post-traumatic stress disorder, chronic F43.12 Active 116286777 Problem Hyperlipidemia E78.5 Active 70705045 Problem Open-angle glaucoma of both eyes H40.10X0 Active 47434658 Problem Environmental allergies Z91.09 Active 406679902 Problem Sleep apnea, obstructive G47.33 Active 95822376 Problem Mitral valve prolapse I34.1 Active 710785093 Problem Arrhythmia as indication for cardiac pacemaker replacement I49.9 Active 98004530 ALLERGIES No Information ENCOUNTERS Encounter Location Date Diagnosis [facility] [place] [id number] [place] [address] 18510- 3675 Oct, [facility] [place] [id number] [place] [address] 14500- 4501 Sep, [facility] [place] [id number] [place] [address] 13984- 1805 Aug, [facility] [place] [id number] [place] [address] 13480- 4829 Aug, Left leg pain M79.605 [facility] [address] [place] [address] 47666- 8423 Jul, Post-traumatic stress disorder, chronic F43.12 ; Anxiety F41.9 ; Problems related to release from senior living Z65.2 and BMI 40.0-44.9, adult Z68.41 [facility] [id number] [place] [address] 13873- 7719 20 Jul, 2017 HTN (hypertension) I10 ; Body mass index (BMI) of 40.0-44.9 in adult Z68.41 and Acute swimmer''s ear of both sides H60.333 [facility] [address] [place] [address] 80428- 5911 19 Jul, 2017 Glaucoma H40.9 [facility] [id number] [place] [address] 81399- 3267 14 Jul, 2017 [facility] [id number] [place] [address] 73129- 9179 13 Jul, 2017 Sarcoidosis D86.9 [facility] [address] [place] [address] 94548- 6634 12 Jul, 2017 Left leg pain M79.605 [facility] [place] [id number] [place] [address] 50664- 7832 Jul, Sarcoidosis D86.9 [facility] [id number] [place] [address] 24791- 6534 Jul, Post-traumatic stress disorder, unspecified F43.10 ; Major depressive disorder, recurrent, moderate F33.1 and Problems related to release from senior living Z65.2 [facility] [place] [id number] [place] [address] 49552- 2253 June, [facility] [id number] [place] [address] 86703 -0517 June, Sore throat J02.9 and BMI 40.0-44.9, adult Z68.41 [facility] [place] [id number] [place] [address] 66474- 9978 June, [facility] [place] [id number] [place] [address] 15702- 2437 June, [facility] [place] [id number] [place] [address] 95889- 9340 June, [facility] [place] [id number] [place] [address] 56382- 7608 June, Left leg pain M79.605 [facility] [place] [id number] [place] [address] 19088- 9362 June, Sarcoidosis D86.9 [facility] [place] [id number] [place] [address] 65576- 8541 June, [facility] [place] [id number] [place] [address] 51938- 8408 June, [facility] [place] [id number] [place] [address] 29421- 9149 June, Left leg pain M79.605 [facility] [place] [id number] [place] [address] 19753- 8538 May, [facility] [place] [id number] [place] [address] 92030- 3347 May, [facility] [place] [id number] [place] [address] 94223- 1513 May, [facility] [place] [address] [place] [address] 41927- 8787 May, Left leg pain M79.605 [facility] [address] [place] [address] 81527- 4820 May, Post-traumatic stress disorder, unspecified F43.10 ; Major depressive disorder, recurrent, moderate F33.1 and Problems related to release from senior living Z65.2 [facility] [address] [place] [address] 40678- 4302 04 May, 2017 Chronic pain G89.29 ; Anxiety F41.9 ; Chest pain, unspecified type R07.9 and BMI 40.0-44.9, adult Z68.41 [facility] [address] [place] [address] 36268- 4397 30 Apr, 2017 [facility] [id number] [place] [address] 01288- 0048 Apr, Left leg pain M79.605 [facility] [address] [place] [address] 93206- 1718 27 Apr, 2017 Post-traumatic stress disorder, unspecified F43.10 ; Problems related to release from senior living Z65.2 ; Anxiety F41.9 and BMI 40.0-44.9 , adult Z68.41 [facility] [address] [address]- 9900 Apr, [facility] [id number] [place] [address] 89698- 8148 Apr, Left leg pain M79.605 [facility] [address] [place] [address] 22510- 3572 Apr, Post-traumatic stress disorder, unspecified F43.10 ; Major depressive disorder, recurrent, moderate F33.1 and Problems related to release from senior living Z65.2 [facility] [address] [place] [address] 09629- 0538 Apr, [facility] [address] 99611- 3485 12 Apr, 2017 Chronic pain G89.29 ; 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 ; Morbid (severe) obesity due to excess calories E66.01 ; Anxiety F41.9 and BMI 40.0-44.9, adult Z68.41 [facility] [address] 40193 -7235 Apr, Sore throat J02.9 and BMI 40.0-44.9, adult Z68.41 [facility] [facility] [address] 83958- 6323 02 Apr, 2017 Left leg pain M79.605 [facility] [address] [id number] Mar, Dental examination Z01.[address] 97607- 2304 Mar, [facility] [address] 09689 -5820 Mar, Cough R05 ; Viral gastroenteritis A08.4 and BMI 40.0-44.9, adult Z68.41 [facility] [address] 07087- 9128 Mar, Left leg pain M79.605 [facility] [address] 63153- 6475 06 Mar, 2017 Post-traumatic stress disorder, unspecified F43.10 ; Major depressive disorder, recurrent, moderate F33.1 and Problems related to release from senior living Z65.2 [facility] [address] 19285- 9238 Feb, Left leg pain M79.605 [facility] [address] 20190- 0298 Feb, [facility] [address] 65886- 9314 Feb, 2018 BMI 40.0-44.9, adult Z68.41 ; Chronic pain syndrome G89.4 ; Migraine without aura and without status migrainosus, not intractable G43.009 ; Mitral valve prolapse I34.1 and 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 [facility] [place] [address] [place] [address] 24056- 5487 Feb, Post-traumatic stress disorder, chronic F43.12 ; Anxiety F41.9 ; Problems related to release from senior living Z65.2 and BMI 40.0-44.9, adult Z68.41 [facility] [place] [id number] [place] [address] 80144- 9157 Feb, Post-traumatic stress disorder, unspecified F43.10 ; Major depressive disorder, recurrent, moderate F33.1 and Problems related to release from senior living Z65.2 [facility] [id number] [place] [address] 98830- 0941 Feb, Left leg pain M79.605 [facility] [address] [place] [address] 27728- 3209 Jan, Post-traumatic stress disorder, unspecified F43.10 ; Major depressive disorder, recurrent, moderate F33.1 and Problems related to release from senior living Z65.2 [facility] [address] [place] [address] 27351- 8144 Jan, [facility] [place] [id number] [place] [address] 56329- 8932 Jan, [facility] [place] [id number] [place] [address] 95465- 8606 Jan, Anxiety F41.9 [facility] [address] 05160- 1594 Jan, Left leg pain M79.605 [facility] [address] [place] [address] 10815- 8934 Dec, Left leg pain M79.605 [facility] [address] [address]- 3325 Dec, [facility] [address] [place] [address] 60864- 9745 Dec, Post-traumatic stress disorder, unspecified F43.10 ; Major depressive disorder, recurrent, moderate F33.1 and Problems related to release from senior living Z65.2 [facility] [id number] [place] [address] 34674- 5738 31 Nov, 2016 Chronic pain G89.29 and Anxiety F41.9 [facility] [id number] [place] [address] 88262- 5107 24 Nov, 2016 Chronic pain G89.29 and Anxiety F41.9 [facility] [address] [place] [address] 42004- 3975 16 Nov, 2016 Post-traumatic stress disorder, unspecified F43.10 ; Major depressive disorder, recurrent, moderate F33.1 and Problems related to release from senior living Z65.2 [facility] [address] [place] [address] 59396- 2385 09 Nov, 2016 Other abnormal findings in specimens from other organs, systems and tissues R89.8 ; Other male erectile dysfunction N52.8 ; Body mass index (BMI) of 40.0-44.9 in adult Z68.41 and Morbid (severe) obesity due to excess calories E66.01 [facility] [address] [place] [address] 43193- 5940 02 Nov, 2016 Post-traumatic stress disorder, unspecified F43.10 ; Major depressive disorder, recurrent, moderate F33.1 and Problems related to release from senior living Z65.2 [facility] [address] [place] [address] [id number] Oct, Dental examination Z01.20 [facility] [address] [place] [address] 87390- 3060 Oct, [facility] [id number] [place] [address] 81108- 9733 Oct, Encounter for immunization Z23 [facility] [place] [address] [address]- 8570 Oct, Chronic pain G89.29 ; Anxiety F41.9 ; Arrhythmia as indication for cardiac pacemaker replacement I49.9 and Glaucoma H40.9 [facility] [place] [address] [address]- 9592 Oct, Anxiety F41.9 ; Post-traumatic stress disorder, chronic F43.12 and Problems related to release from senior living Z65.2 [facility] [id number] [place] [address] 08363- 3881 Oct, Post-traumatic stress disorder, unspecified F43.10 ; Major depressive disorder, recurrent, moderate F33.1 and Problems related to release from senior living Z65.2 [facility] [address] [place] [address] 46858- 2097 Sep, Chronic pain G89.29 and Anxiety F41.9 [facility] [address] [place] [address] 83733- 1871 Sep, Post-traumatic stress disorder, unspecified F43.10 ; Major depressive disorder, recurrent, moderate F33.1 and Problems related to release from senior living Z65.2 [facility] [address] [place] [address] 45971- 3172 Sep, Post-traumatic stress disorder, unspecified F43.10 ; Major depressive disorder, recurrent, moderate F33.1 and Problems related to release from senior living Z65.2 [facility] [address] [address]- 9187 Sep, Chronic pain G89.29 [facility] [id number] [place] [address] 84311- 9005 Aug, Dental caries, unspecified K02.9 [facility] [address] [address]- 0305 Aug, Sleep apnea, obstructive G47.33 ; Obesity E66.9 ; Chronic pain G89.29 ; HTN (hypertension) I10 ; Major depressive disorder, recurrent, moderate F33.1 ; Anxiety F41.9 ; Chronic tension headaches G44.229 ; Mitral valve prolapse I34.1 ; Arrhythmia as indication for cardiac pacemaker replacement I49.9 ; Dental caries, unspecified K02.9 ; Primary insomnia F51.01 and Hyperlipidemia E78.5 [facility] [place] [address] 50378- 9843 Aug, Post-traumatic stress disorder, unspecified F43.10 ; Major depressive disorder, recurrent, moderate F33.1 and Problems related to release from senior living Z65.2 [facility] [place] [address] 32274- 0494 Aug, Dental examination Z01.20 [facility] [address] [id number] Aug, Dental examination Z01.20 [facility] [place] [address] 78222- 1758 Aug, Post-traumatic stress disorder, unspecified F43.10 ; Major depressive disorder, recurrent, moderate F33.1 and Problems related to release from senior living Z65.2 [facility] [place] [address] 13610- 4362 Aug, Chronic pain G89.29 and Primary insomnia F51.01 [facility] [id number] [place] [address] 23113- 4431 Jul, [facility] [place] [address] 93828- 0513 Jul, [facility] [place] [address] 92155- 3192 Jul, Nausea R11.0 [facility] [place] [id number] [place] [address] 42551- 8527 Jul, Arrhythmia as indication for cardiac pacemaker replacement I49.9 [facility] [address] 23643- 2348 13 Jul, 2016 Post-traumatic stress disorder, unspecified F43.10 ; Major depressive disorder, recurrent, moderate F33.1 and Problems related to release from senior living Z65.2 [facility] [address] [place] [address] 17473- 7219 09 Jul, 2016 Anxiety F41.9 [facility] [id number] [place] [address] 18049- 0811 08 Jul, 2016 Chronic pain G89.29 [place] [id number] [place] [address] 92555- 5679 02 Jul, 2016 Sleep apnea, obstructive G47.33 ; Hyperlipidemia E78.5 ; Chronic pain G89.29 ; Blindness and low vision H54.10 ; Major depressive disorder, recurrent, moderate F33.1 ; Anxiety F41.9 ; Mitral valve prolapse I34.1 ; Arrhythmia as indication for cardiac pacemaker replacement I49.9 ; Primary insomnia F51.01 ; Bilateral headaches R51 and Environmental allergies Z91.09 [facility] [address] [place] [address] 98073- 1733 Jul, Post-traumatic stress disorder, unspecified F43.10 ; Major depressive disorder, recurrent, moderate F33.1 and Problems related to release from senior living Z65.2 [facility] [address] [place] [address] 91265- 1780 June, Post-traumatic stress disorder, chronic F43.12 ; Anxiety F41.9 ; Problems related to release from senior living Z65.2 ; Sleep apnea, obstructive G47.33 and Primary insomnia F51.01 [facility] [address] [place] [address] 33513- 3469 June, [facility] [id number] [place] [address] 17351- 6168 June, [facility] [id number] [place] [address] 06229- 7320 June, [facility] [address] [place] [address] 77015- 2391 June, Chronic pain G89.29 [facility] [id number] [place] [address] 65487- 2510 June, Chronic pain G89.29 [facility] [address], [place] [address]- 6429 June, Lipoma of left lower extremity D17.24 ; Open wound T14.8 and Swelling of left lower extremity M79.89 [facility] [address] [place] [address] 85584- 8956 June, Post-traumatic stress disorder, unspecified F43.10 ; Major depressive disorder, recurrent, moderate F33.1 and Problems related to release from senior living Z65.2 [facility] [address] [place] [address] 83675- 2658 May, Lipoma of left lower extremity D17.24 ; Major depressive disorder, recurrent, moderate F33.1 ; Sleep apnea, obstructive G47.33 ; Hyperlipidemia E78.5 ; Obesity E66.9 ; HTN (hypertension) I10 ; Glaucoma H40.9 ; CAD (coronary artery disease) I25.10 ; Chronic tension headaches G44.229 ; Chronic pain G89.29 ; Anxiety F41.9 ; Nausea R11.0 and Primary insomnia F51.01 [facility] [address] [address]- 9045 May, [facility] [address] [place] [address] 07996- 5239 May, Chronic pain G89.29 [facility] [address], [place] [address]- 4565 May, [facility] [id number] [place] [address] 79248- 5267 Apr, Post-traumatic stress disorder, unspecified F43.10 ; Major depressive disorder, recurrent, moderate F33.1 and Problems related to release from senior living Z65.2 [facility] [id number] [place] [address] 57579- 9526 Apr, Primary insomnia F51.01 ; Post-traumatic stress disorder, chronic F43.12 and Problems related to release from senior living Z65.2 [facility] [id number] [place] [address] 91149- 5797 Apr, Post-traumatic stress disorder, unspecified F43.10 ; Major depressive disorder, recurrent, moderate F33.1 and Problems related to release from senior living Z65.2 [facility] [id number] [place] [address] 16802- 2104 Apr, [facility] [address] 16397- 4467 Apr, Sleep apnea, obstructive G47.33 ; Chronic pain G89.29 ; HTN (hypertension) I10 ; Mitral valve prolapse I34.1 ; Shoulder pain, left M25.512 ; Arrhythmia as indication for cardiac pacemaker replacement I49.9 ; Glaucoma H40.9 ; Bilateral headaches R51 ; Environmental allergies Z91.09 ; Primary insomnia F51.01 and Nausea R11.0 [facility] [id number] [place] [address] 63774- 5754 Apr, [facility] [id number] [place] [address] 08239- 7421 Apr, [facility] [id number] [place] [address] 98382- 9844 Apr, Post-traumatic stress disorder, unspecified F43.10 ; Major depressive disorder, recurrent, moderate F33.1 and Problems related to release from senior living Z65.2 [facility] [address] [place] [address] 47694- 0809 Apr, HTN (hypertension) I10 [facility] [address] 25669- 4616 Apr, HTN (hypertension) I10 [facility] [id number] [place] [address] 93187- 7818 14 Mar, 2016 Chronic pain G89.29 ; Primary insomnia F51.01 and Problems related to release from senior living Z65.2 [facility] [id number] [place] [address] 97155- 6158 07 Mar, 2016 Post-traumatic stress disorder, unspecified F43.10 ; Major depressive disorder, recurrent, moderate F33.1 and Problems related to release from senior living Z65.2 [facility] [facility] [address] 33558- 6748 Feb, Post-traumatic stress disorder, unspecified F43.10 ; Major depressive disorder, recurrent, moderate F33.1 and Problems related to release from senior living Z65.2 [facility] [id number] [place] [address] 27725- 0691 Feb, Chronic tension headaches G44.229 [facility] [id number] [place] [address] 04824- 1160 Feb, Sleep apnea, obstructive G47.33 ; Obesity [...] I49.9 and Primary insomnia F51.01 [facility] [id number] [place] [address] 06718- 3454 Feb, Post-traumatic stress disorder, unspecified F43.10 and Chronic pain G89.29 [facility] [id number] [place] [address] 10594- 9920 Feb, [facility] [id number] [place] [address] [id number] Feb, Dental caries K02.9 [facility] [id number] [place] [address] 13798- 7965 Feb, [facility] [address], [place] [address]- 9113 Feb, Post-traumatic stress disorder, unspecified F43.10 ; Major depressive disorder, recurrent, moderate F33.1 and Problems related to release from senior living Z65.2 [facility] [facility] [id number] [place] [address] 72516- 0092 Jan, Sleep apnea, obstructive G47.33 and Chronic pain G89.29 [facility] [id number] [place] [address] 03506- 4523 Jan, [place] [id number] [place] [address] 08652- 3701 Jan, Dental examination Z01.20 [place] [id number] [place] [address] 03129- 7445 Jan, [place] [id number] [place] [address] 66249- 3119 Jan, [place] [id number] [place] [address] 29350- 4365 Dec, Post-traumatic stress disorder, unspecified F43.10 ; Major depressive disorder, recurrent, moderate F33.1 and Problems related to release from senior living Z65.2 [facility] [id number] [place] [address] [id number] Dec, Encounter for immunization Z23 ; Problems related to release from senior living Z65.2 ; Sleep apnea, obstructive G47.33 and Post-traumatic stress disorder, chronic F43.[id number] [place] [address] [id number] Dec, Sleep apnea, obstructive G47.33 ; Hyperlipidemia E78.5 ; Chronic pain G89.29 ; Glaucoma H40.9 ; HTN (hypertension) I10 ; Post-traumatic stress disorder, unspecified F43.10 ; Anxiety F41.9 ; Chronic tension headaches G44.229 ; Mitral valve prolapse I34.1 and CAD (coronary artery disease) I25.[address] [id number] [address] Dec, Post-traumatic stress disorder, unspecified F43.10 ; Major depressive disorder, recurrent, moderate F33.1 and Problems related to release from senior living Z65.2 [place] [id number] [place] [address] 75178- 5061 Nov, Chronic pain G89.29 [place] [address] [place] [id number] [place] [address] 96326- 0668 Nov, Post-traumatic stress disorder, unspecified F43.10 ; Major depressive disorder, recurrent, moderate F33.1 and Problems related to release from senior living Z65.2 [place] [address] [place] [id number] [place] [address] 37472- 2036 Oct, [place] [address] [place] [id number] [place] [address] 42901- 0358 Oct, [place] [address] [place] [id number] [place] [address] 39891- 9952 16 Oct, 2015 Post-traumatic stress disorder, unspecified F43.10 ; Major depressive disorder, recurrent, moderate F33.1 and Problems related to release from senior living Z65.2 [place] [address] [place] [id number] [place] [address] 87480- 5446 08 Oct, 2015 [place] [address] [place] [id number] [place] [address] 48681- 4818 07 Oct, 2015 Environmental allergies Z91.09 ; Cough R05 and Open-angle glaucoma of both eyes H40.10X0 [place] [address] [place] [id number] [place] [address] 93898- 8289 Sep, [place] [address] [place] [id number] [place] [address] 51792- 0023 Sep, Post-traumatic stress disorder, unspecified F43.10 ; Major depressive disorder, recurrent, moderate F33.1 and Problems related to release from senior living Z65.2 [place] [address] [place] [id number] [place] [id number]- 2546 Sep, Chronic pain G89.29 [place] [address] [place] [id number] [place] [address] 37502- 1506 Sep, Pain in left shoulder M25.512 ; Pain in right shoulder M25.511 and Other chronic pain G89.29 [facility] [place] [address] [place] [id number] [place] [address] 28150- 3451 Sep, [place] [address] [place] [id number] [place] [address] 51102- 2589 Sep, [place] [address] [place] [id number] [place] [address] 31260- 6615 Sep, [facility] [address] [place] [id number] [place] [address] [id number] Aug, Dental examination Z01.20 [place] [address] [place] [id number] [place] [address] 38794- 0088 Aug, Post-traumatic stress disorder, unspecified F43.10 ; Open- angle glaucoma of both eyes H40.10X0 and Problems related to release from senior living Z65.2 [place] [address] [place] [id number] [place] [address] 87888- 5614 Aug, [place] [address] [place] [id number] [place] [address] 39796- 6188 Aug, Sleep apnea, obstructive G47.33 ; Obesity E66.9 ; Hyperlipidemia E78.5 ; Bilateral headaches R51 ; HTN (hypertension) I10 ; Post- traumatic stress disorder, unspecified F43.10 ; Anxiety F41.9 ; Neuropathy G62.9 ; Glaucoma H40.9 and Chronic pain G89.29 [facility] [address] [place] [id number] [place] [address] [id number] Aug, Encounter for dental examination Z01.20 [facility] [place] [address] [place] [id number] [place] [address] 52504- 3556 Aug, Post-traumatic stress disorder, unspecified F43.10 ; Major depressive disorder, recurrent, moderate F33.1 and Problems related to release from senior living Z65.2 [facility] [place] [address] [address]12 Aug, [facility] [place] [address] [place] [id number] [place] [address] 36038- 9186 Jul, [facility] [place] [address] [place] [id number] [place] [address] 16031- 7841 Jul, Post-traumatic stress disorder, unspecified F43.10 and Major depressive disorder, recurrent, moderate F33.1 [place] [address] [place] [id number] [address] 4500 Jul, [place] [address] [place] [id number] [place] [address] 78048- 8760 Jul, [place] [address] [place] [id number] [place] [address] 37697- 5913 Jul, Chronic pain G89.29 [place] [address] [place] [id number] [place] [address] 01859- 5189 June, Post-traumatic stress disorder, unspecified F43.10 and Major depressive disorder, recurrent, moderate F33.1 [place] [id number] [place] [address] 65753- 8569 June, [place] [id number] [place] [address] 66534- 5783 June, Chronic pain G89.29 [place] [id number] [place] [address] 00745- 1916 June, Post-traumatic stress disorder, unspecified F43.10 and Major depressive disorder, recurrent, moderate F33.1 [place] [id number] [place] [address] 96035- 7943 May, Post-traumatic stress disorder, unspecified F43.10 and Major depressive disorder, recurrent, moderate F33.1 [place] [id number] [place] [address] 93311- 2382 May, [facility] [place] [id number] [place] [address] 57665- 1211 May, [facility] [place] [address] [place] [id number] [place] [address] 25354- 9675 May, [facility] [place] [address] [place] [id number] [place] [address] 18913- 5212 Apr, [facility] [place] [address] [place] [id number] [place] [address] 193243- 6553 Apr, Post-traumatic stress disorder, unspecified F43.10 and Sleep apnea, obstructive G47.33 [facility] [place] [address] [place] [id number] [place] [address] 14538- 6273 Apr, [facility] [place] [address] [place] [id number] [place] [address] 40476- 4742 Apr, Shoulder pain, left M25.512 [facility] [place] [address] [place] [id number] [place] [address] 77928- 2357 Apr, Post-traumatic stress disorder, unspecified F43.10 and Major depressive disorder, recurrent, moderate F33.1 [facility] [place] [address] [place] [id number] [place] [address] 06147- 9871 17 Apr, 2015 [facility] [place] [address] [place] [id number] [place] [address] 07553- 7798 Apr, [facility] [place] [address] [place] [id number] [place] [address] 89851- 5473 Apr, [facility] [place] [address] [place] [id number] [place] [address] 51692- 3424 07 Apr, 2015 Left shoulder pain M25.512 [facility] [place] [address] [place] [id number] [place] [address] 69152- 4028 Mar, [facility] [place] [address] [place] [id number] [place] [address] 57301- 3847 Mar, [facility] [place] [address] [place] [id number] [place] [address] 52406- 9475 18 Mar, 2015 [place] [address] 48895- 9415 Mar, Sleep apnea, obstructive G47.33 ; Obesity E66.9 ; Chronic pain G89.29 ; Hyperlipidemia E78.5 ; HTN (hypertension) I10 ; Blindness and low vision H54.10 ; Major depressive disorder, recurrent, moderate F33.1 and Anxiety F41.9 [place] [address] 16577- 7136 Mar, [place] [address] 80556- 9372 Mar, Post-traumatic stress disorder, unspecified F43.10 and Major depressive disorder, recurrent, moderate F33.[address] 51933- 1573 Mar, [place] [address] 29055- 3194 Mar, HTN (hypertension) I10 ; Blindness and low vision H54.10 ; Obesity E66.9 ; Hyperlipidemia E78.5 ; Glaucoma H40.9 ; Chronic pain G89.29 and CAD (coronary artery disease) I25.10 [place] [address] 18000- 9157 Feb, [place] [address] [place] [id number]- 3180 Feb, Post-traumatic stress disorder, unspecified F43.10 ; Obesity E66.9 ; Sleep apnea, obstructive G47.33 and Open-angle glaucoma of both eyes H40.10X0 [place] [id number] [place] [address] 67459- 8049 Feb, Post-traumatic stress disorder, unspecified F43.10 and Major depressive disorder, recurrent, moderate F33.1 [place] [address] [place] [address]- 2546 Feb, [place] [address] [place] [id number] [place] [address] 70962- 4085 Feb, [place] [address] [place] 388759- 7620 Feb, HTN (hypertension) I10 ; Post-traumatic stress disorder, unspecified F43.10 ; Blindness and low vision H54.10 ; Obesity E66.9 ; Hyperlipidemia E78.5 ; Chronic pain G89.29 ; Glaucoma H40.9 ; Mitral valve prolapse I34.1 and Bilateral headaches R51 [place] [address] [place] [id number] [place] [address] 25384- 3895 Feb, [place] [address] 14457- 7141 Feb, Post-traumatic stress disorder, unspecified F43.10 and Major depressive disorder, recurrent, moderate F33.1 [place] [address] [place] [id number] [place] [address] 45153- 1889 Feb, [place] [address] [place] [id number] [place] [address] 20103- 2837 Feb, [place] [address] [place] [id number] [place] [address] 16950- 1103 Jan, [place] [address] [place] [id number] [place] [address] 72918- 9658 Jan, [place] [address] [place] [id number] [place] [address] 79416- 0176 Jan, Obesity E66.9 ; HTN (hypertension) I10 ; Blindness and low vision H54.10 ; Major depressive disorder, recurrent, moderate F33.1 ; Glaucoma H40.9 ; Hyperlipidemia E78.5 ; Sleep apnea, obstructive G47.33 ; Chronic pain G89.29 ; Anxiety F41.9 ; Chronic tension headaches G44.229 and Cough R05 [place] [address] [place] [id number] [place] [address] 67620- 6658 Jan, [facility] [place] [address] [place] [id number] [place] [address] 78108- 0584 Jan, [facility] [place] [address] [place] 388755- 0536 Jan, Post-traumatic stress disorder, unspecified F43.10 ; Obesity E66.9 ; Sleep apnea, obstructive G47.33 and Open-angle glaucoma of both eyes H40.10X0 [facility] [place] [address] [place] [id number] [place] [address] 738249- 7844 Jan, [facility] [place] [address] [place] [id number] [place] [address] 10322- 8653 Jan, Post-traumatic stress disorder, unspecified F43.10 and Major depressive disorder, recurrent, moderate F33.1 [place] [address] [place] [id number] [place] [address] 53639- 5623 Dec, [address] 263001- 1576 Dec, Sleep apnea, obstructive G47.33 ; Obesity E66.9 ; Hyperlipidemia E78.5 ; Glaucoma H40.9 ; Chronic pain G89.29 ; HTN (hypertension ) I10 ; Blindness and low vision H54.10 ; Anxiety F41.9 and CAD (coronary artery disease) I25.10 [place] [address] [place] [id number] [place] [address] 09812- 1155 Nov, [facility] [place] [address] [place] [id number] [place] [address] 25351- 2107 Nov, [facility] [place] [address] [place] [id number] [place] [address] 22844- 6860 Nov, [facility] [place] [address] [place] [id number] [place] [address] 76193- 2742 Nov, [facility] [place] [address] [place] [id number] [place] [address] 86762- 9828 Nov, [facility] [place] [address] 90043- 4108 Nov, Encounter for immunization Z23 ; Sleep apnea, obstructive G47.33 ; Obesity E66.9 ; Hyperlipidemia E78.5 ; Glaucoma H40.9 ; Chronic pain G89.29 ; Anxiety F41.9 ; Chronic tension headaches G44.229 and HTN (hypertension ) I10 [facility] [place] [address] 64388- 2257 Nov, [facility] [place] [address] 15931- 4435 Nov, [facility] [place] [address] 92141- 2729 Nov, Dizziness R42 [facility] [place] [address] 53373- 6150 Nov, [facility] [place] [address] 10279- 8914 Oct, [facility] [place] [address] 58073- 5818 Oct, [facility] [place] [address] 09861- 2292 Oct, [facility] [place] [address] 49035- 4446 Oct, [facility] [place] [address] 67863- 2915 Oct, Dizziness 780.4 ; Essential hypertension 401.9 ; Obesity 278.00 ; Hyperlipidemia 272.4 ; Chronic pain 338.29 ; Glaucoma 365.9 and Anxiety 300.00 [facility] [place] [address] 20567- 2758 Oct, Essential hypertension 401.9 ; Hyperlipidemia 272.4 ; Glaucoma 365.9 ; Obesity 278.00 ; Chronic pain 338.29 and Allergy to insects V15.06 [facility] [place] [address] 50182- 6794 Sep, [facility] [place] [address] [facility] [id number] [address]- 1295 Sep, [facility] [place] [address] [facility] [id number] [address]- 0296 Sep, [facility] [place] [address] [facility] [id number] [address]- 0618 Sep, [facility] [place] [address] [facility] [id number] [address]- 6978 Aug, Essential hypertension 401.9 ; Obesity 278.00 ; Hyperlipidemia 272.4 ; Glaucoma 365.9 ; Lipoma 214.9 ; Mitral valve prolapse 424.0 ; Angina at rest 413.9 ; Lymphedema 457.1 and Chronic pain 338.29 IMMUNIZATIONS No Known Immunizations SOCIAL HISTORY Never Assessed REASON FOR VISIT Controlled Med Refill-oxycodone PLAN OF CARE VITAL SIGNS MEDICATIONS Medication Instructions Dosage Frequency Start Date End Date Duration Status Oxycodone HCl 10 mg Orally 2 times a day 1 tablet as needed 12h Apr, May, 30 days Active RESULTS No Results PROCEDURES [...]
--- OUTSIDE RECORDS SUMMARY | 2018-02-04 15:03 | XMS REPORT ---
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 Name Role Phone ALENA ÁLVAREZ Unavailable PROBLEMS Type Condition ICD9-CM Code [id number] Code Onset Dates Condition Status SNOMED Code Problem Primary insomnia F51.01 Active 6102698 Problem Other male erectile dysfunction N52.8 Active 195589790 Problem Morbid (severe) obesity due to excess calories E66.01 Active 359233541 Problem Sarcoidosis D86.9 Active 86120869 Problem Blindness and low vision H54.10 Active 102786851 Problem Problems related to release from alf Z65.2 Active [id number] Problem Myocarditis, unspecified chronicity, 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 Active 21988788 Problem Chronic pain G89.29 Active 38317577 Problem 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 Active 889938066 Problem Body mass index (BMI) of 40.0-44.9 in adult Z68.41 Active 453611354 Problem Chronic pain syndrome G89.4 Active 068195647 Problem Migraine without aura and without status migrainosus, not intractable G43.009 Active 784560070 Problem Anxiety F41.9 Active 36205905 Problem Major depressive disorder, recurrent, moderate F33.1 Active 29671696 Problem HTN (hypertension) I10 Active 39556527 Problem Chronic tension headaches G44.229 Active 282448649 Problem CAD (coronary artery disease) I25.10 Active 64901383 Problem Post-traumatic stress disorder, chronic F43.12 Active 975699179 Problem Hyperlipidemia E78.5 Active 38520148 Problem Open-angle glaucoma of both eyes H40.10X0 Active 04513334 Problem Environmental allergies Z91.09 Active 701501084 Problem Sleep apnea, obstructive G47.33 Active 25364136 Problem Mitral valve prolapse I34.1 Active 961702465 Problem Arrhythmia as indication for cardiac pacemaker replacement I49.9 Active 22800975 ALLERGIES No Information ENCOUNTERS Encounter Location Date Diagnosis [facility] [id number] [place] [address] 32743- 2091 Oct, [facility] [address] 26985- 4606 Aug, [facility] [id number] [place] [address] 54994- 4400 26 Jul, 2017 Post-traumatic stress disorder, chronic F43.12 ; Anxiety F41.9 ; Problems related to release from alf Z65.2 and BMI 40.0-44.9, adult Z68.41 [facility] [address] 74367- 4514 20 Jul, 2017 HTN (hypertension) I10 ; Body mass index (BMI) of 40.0-44.9 in adult Z68.41 and Acute swimmer''s ear of both sides H60.333 [facility] [address] 08182- 9019 19 Jul, 2017 Glaucoma H40.9 [facility] [id number] [place] [address] 07196- 0215 14 Jul, 2017 [facility] [id number] [place] [address] 34326- 7583 13 Jul, 2017 Sarcoidosis D86.9 [facility] [address] 66538- 8934 12 Jul, 2017 Left leg pain M79.605 [facility] [id number] [place] [address] 25018- 2696 12 Jul, 2017 Sarcoidosis D86.9 [facility] [id number] [place] [address] 90677- 7097 Jul, Post-traumatic stress disorder, unspecified F43.10 ; Major depressive disorder, recurrent, moderate F33.1 and Problems related to release from alf Z65.2 [facility] [id number] [place] [address] 62617- 3127 June, [facility] [address] [address] June, Sore throat J02.9 and BMI 40.0-44.9, adult Z68.41 [facility] [address] [address] June, [facility] [id number] [place] [address] 50127- 2800 June, [facility] [id number] [place] [address] 67810- 5769 June, [facility] [id number] [place] [address] 79624- 4042 June, Left leg pain M79.605 [facility] [id number] [place] [address] 20983- 3682 June, Sarcoidosis D86.9 [facility] [id number] [place] [address] 29683- 4183 June, [facility] [id number] [place] [address] 55377- 2739 June, [facility] [id number] [place] [address] 41089- 5862 June, Left leg pain M79.605 [facility] [address] [address] 2706 May, [facility] [id number] [address]- 9765 May, [facility] [address] [address] 3[address] May, [facility] [id number] [address]- 9549 May, Left leg pain M79.605 [facility] [address] [address] 0807 May, Post-traumatic stress disorder, unspecified F43.10 ; Major depressive disorder, recurrent, moderate F33.1 and Problems related to release from alf Z65.2 [facility] [id number] [place] [address] 14768- 7976 04 May, 2017 Chronic pain G89.29 ; Anxiety F41.9 ; Chest pain, unspecified type R07.9 and BMI 40.0-44.9, adult Z68.41 [facility] [address] 40299- 3551 30 Apr, 2017 [facility] [id number] [place] [address] 69803- 8955 29 Apr, 2017 Left leg pain M79.605 [facility] [address] 64308- 9435 27 Apr, 2017 Post-traumatic stress disorder, unspecified F43.10 ; Problems related to release from alf Z65.2 ; Anxiety F41.9 and BMI 40.0-44.9 , adult Z68.41 [facility] [id number] [place] [address] 96118- 1546 Apr, [facility] [id number] [place] [address] 40125- 7717 Apr, Left leg pain M79.605 [facility] [id number] [place] [address] 66864- 6659 Apr, Post-traumatic stress disorder, unspecified F43.10 ; Major depressive disorder, recurrent, moderate F33.1 and Problems related to release from alf Z65.2 [facility] [id number] [place] [address] 48214- 3283 Apr, [facility] [address] 53513- 8350 Apr, Chronic pain G89.29 ; 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 ; Morbid (severe) obesity due to excess calories E66.01 ; Anxiety F41.9 and BMI 40.0-44.9, adult Z68.41 [facility] [id number] [place] [address] 88556 -2092 Apr, Sore throat J02.9 and BMI 40.0-44.9, adult Z68.41 [facility] [address] 16556- 1856 02 Apr, 2017 Left leg pain M79.605 [facility] [address] [id number] Mar, Dental examination Z01.20 [facility] [address] 72578- 6557 Mar, [facility] [address] 80041 -3994 Mar, Cough R05 ; Viral gastroenteritis A08.4 and BMI 40.0-44.9, adult Z68.41 [facility] [address] 68756- 9685 Mar, Left leg pain M79.605 [facility] [address] 79515- 1293 Mar, Post-traumatic stress disorder, unspecified F43.10 ; Major depressive disorder, recurrent, moderate F33.1 and Problems related to release from alf Z65.2 [facility] [address] 43122- 7117 Feb, Left leg pain M79.605 [facility] [address] 84631- 8364 Feb, [facility] [address] 54735- 5687 Feb, BMI 40.0-44.9, adult Z68.41 ; Chronic pain syndrome G89.4 ; Migraine without aura and without status migrainosus, not intractable G43.009 ; Mitral valve prolapse I34.1 and 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 [facility] [address] [place] [address] 51738- 5894 Feb, Post-traumatic stress disorder, chronic F43.12 ; Anxiety F41.9 ; Problems related to release from alf Z65.2 and BMI 40.0-44.9, adult Z68.41 [facility] [address] [place] [address] 63106- 6777 Feb, Post-traumatic stress disorder, unspecified F43.10 ; Major depressive disorder, recurrent, moderate F33.1 and Problems related to release from alf Z65.2 [facility] [id number] [place] [address] 86550- 6871 Feb, Left leg pain M79.605 [facility] [id number] [place] [address] 65038- 9856 Jan, Post-traumatic stress disorder, unspecified F43.10 ; Major depressive disorder, recurrent, moderate F33.1 and Problems related to release from alf Z65.2 [facility] [address] [place] [address] 53565- 7876 Jan, [facility] [id number] [place] [address] 76822- 8152 Jan, [facility] [id number] [place] [address] 91798- 2116 Jan, Anxiety F41.9 [facility] [id number] [place] [address] 00560- 1489 Jan, Left leg pain M79.605 [facility] [id number] [place] [address] 57941- 4530 Dec, Left leg pain M79.605 [facility] [id number] [place] [address] 67370- 7396 Dec, [facility] [id number] [place] [address] 12370- 2163 Dec, Post-traumatic stress disorder, unspecified F43.10 ; Major depressive disorder, recurrent, moderate F33.1 and Problems related to release from alf Z65.2 [facility] [address] 09805- 8535 31 Nov, 2016 Chronic pain G89.29 and Anxiety F41.9 [facility] [address] 68759- 4092 24 Nov, 2016 Chronic pain G89.29 and Anxiety F41.9 [facility] [address] 13611- 7427 16 Nov, 2016 Post-traumatic stress disorder, unspecified F43.10 ; Major depressive disorder, recurrent, moderate F33.1 and Problems related to release from alf Z65.2 [facility] [address] 47910- 5894 09 Nov, 2016 Other abnormal findings in specimens from other organs, systems and tissues R89.8 ; Other male erectile dysfunction N52.8 ; Body mass index (BMI) of 40.0-44.9 in adult Z68.41 and Morbid (severe) obesity due to excess calories E66.[address] 10168- 3699 02 Nov, 2016 Post-traumatic stress disorder, unspecified F43.10 ; Major depressive disorder, recurrent, moderate F33.1 and Problems related to release from alf Z65.2 [facility] [address] [id number] Oct, Dental examination Z01.20 [facility] [id number] [place] [address] 30212- 4690 Oct, [address] 60174- 2692 Oct, Encounter for immunization Z23 [facility] [address] 71948- 2480 26 Oct, 2016 Chronic pain G89.29 ; Anxiety F41.9 ; Arrhythmia as indication for cardiac pacemaker replacement I49.9 and Glaucoma H40.9 [facility] [address] [address]- 9269 Oct, Anxiety F41.9 ; Post-traumatic stress disorder, chronic F43.12 and Problems related to release from alf Z65.2 [facility] [id number] [place] [address] 69822- 3196 07 Oct, 2016 Post-traumatic stress disorder, unspecified F43.10 ; Major depressive disorder, recurrent, moderate F33.1 and Problems related to release from alf Z65.2 [facility] [id number] [place] [address] 07691- 7519 Sep, Chronic pain G89.29 and Anxiety F41.9 [facility] [id number] [place] [address] 95332- 0608 Sep, Post-traumatic stress disorder, unspecified F43.10 ; Major depressive disorder, recurrent, moderate F33.1 and Problems related to release from alf Z65.2 [facility] [id number] [place] [address] 53958- 3447 Sep, Post-traumatic stress disorder, unspecified F43.10 ; Major depressive disorder, recurrent, moderate F33.1 and Problems related to release from alf Z65.2 [facility] [address] [place] [address] 15369- 8766 Sep, Chronic pain G89.29 [facility] [id number] [place] [address] 57738- 7538 Aug, Dental caries, unspecified K02.9 [facility] [id number] [place] [address] 08486- 4380 Aug, Sleep apnea, obstructive G47.33 ; Obesity E66.9 ; Chronic pain G89.29 ; HTN (hypertension) I10 ; Major depressive disorder, recurrent, moderate F33.1 ; Anxiety F41.9 ; Chronic tension headaches G44.229 ; Mitral valve prolapse I34.1 ; Arrhythmia as indication for cardiac pacemaker replacement I49.9 ; Dental caries, unspecified K02.9 ; Primary insomnia F51.01 and Hyperlipidemia E78.5 [facility] [id number] [place] [address] 20108- 1191 Aug, Post-traumatic stress disorder, unspecified F43.10 ; Major depressive disorder, recurrent, moderate F33.1 and Problems related to release from alf Z65.2 [facility] [id number] [place] [address] 89162- 6166 Aug, Dental examination Z01.20 [facility] [id number] [place] [address] [id number] 13 Aug, 2016 Dental examination Z01.20 [facility] [id number] [place] [address] 52692- 6305 06 Aug, 2016 Post-traumatic stress disorder, unspecified F43.10 ; Major depressive disorder, recurrent, moderate F33.1 and Problems related to release from alf Z65.2 [facility] [id number] [place] [address] 84560- 6577 05 Aug, 2016 Chronic pain G89.29 and Primary insomnia F51.01 [facility] [id number] [place] [address] 58818- 6236 Jul, [facility] [id number] [place] [address] 00139- 3343 Jul, [facility] [id number] [place] [address] 43275- 1859 Jul, Nausea R11.0 [facility] [id number] [place] [address] 58885- 1151 Jul, Arrhythmia as indication for cardiac pacemaker replacement I49.9 [facility] [id number] [place] [address] 84237- 8596 Jul, Post-traumatic stress disorder, unspecified F43.10 ; Major depressive disorder, recurrent, moderate F33.1 and Problems related to release from alf Z65.2 [facility] [id number] [place] [address] 89270- 6748 09 Jul, 2016 Anxiety F41.9 [facility] [id number] [place] [address] 69976- 5519 08 Jul, 2016 Chronic pain G89.29 [facility] [id number] [place] [address] 58133- 8995 Jul, Sleep apnea, obstructive G47.33 ; Hyperlipidemia E78.5 ; Chronic pain G89.29 ; Blindness and low vision H54.10 ; Major depressive disorder, recurrent, moderate F33.1 ; Anxiety F41.9 ; Mitral valve prolapse I34.1 ; Arrhythmia as indication for cardiac pacemaker replacement I49.9 ; Primary insomnia F51.01 ; Bilateral headaches R51 and Environmental allergies Z91.09 [facility] [id number] [place] [address] 97077- 1111 Jul, Post-traumatic stress disorder, unspecified F43.10 ; Major depressive disorder, recurrent, moderate F33.1 and Problems related to release from alf Z65.2 [facility] [id number] [place] [address] 26534- 0210 June, Post-traumatic stress disorder, chronic F43.12 ; Anxiety F41.9 ; Problems related to release from alf Z65.2 ; Sleep apnea, obstructive G47.33 and Primary insomnia F51.01 [facility] [address] [place] [address] 72262- 3831 June, [facility] [id number] [place] [address] 61860- 1832 June, [facility] [id number] [place] [address] 45927- 1408 June, [facility] [id number] [place] [address] 17475- 6258 June, Chronic pain G89.29 [facility] [id number] [place] [address] 47853- 3566 June, Chronic pain G89.29 [facility] [address] [place] [address]- 1018 June, Lipoma of left lower extremity D17.24 ; Open wound T14.8 and Swelling of left lower extremity M79.89 [facility] [address] 92425- 7177 June, Post-traumatic stress disorder, unspecified F43.10 ; Major depressive disorder, recurrent, moderate F33.1 and Problems related to release from alf Z65.2 [facility] [address] 99256- 9023 May, Lipoma of left lower extremity D17.24 ; Major depressive disorder, recurrent, moderate F33.1 ; Sleep apnea, obstructive G47.33 ; Hyperlipidemia E78.5 ; Obesity E66.9 ; HTN (hypertension) I10 ; Glaucoma H40.9 ; CAD (coronary artery disease) I25.10 ; Chronic tension headaches G44.229 ; Chronic pain G89.29 ; Anxiety F41.9 ; Nausea R11.0 and Primary insomnia F51.01 [facility] [address] 86083- 2806 May, [facility] [address] 16249- 2327 May, Chronic pain G89.29 [facility] [address] 34050- 9950 May, [facility] [id number] [place] [address] 95100- 7078 Apr, Post-traumatic stress disorder, unspecified F43.10 ; Major depressive disorder, recurrent, moderate F33.1 and Problems related to release from alf Z65.2 [facility] [address] 64180- 9073 Apr, Primary insomnia F51.01 ; Post-traumatic stress disorder, chronic F43.12 and Problems related to release from alf Z65.2 [facility] [address] 54195- 2238 17 Apr, 2016 Post-traumatic stress disorder, unspecified F43.10 ; Major depressive disorder, recurrent, moderate F33.1 and Problems related to release from alf Z65.2 [facility] [id number] [place] [address] 68749- 2764 16 Apr, 2016 [facility] [id number] [place] [address] 44314- 6839 16 Apr, 2016 Sleep apnea, obstructive G47.33 ; Chronic pain G89.29 ; HTN (hypertension) I10 ; Mitral valve prolapse I34.1 ; Shoulder pain, left M25.512 ; Arrhythmia as indication for cardiac pacemaker replacement I49.9 ; Glaucoma H40.9 ; Bilateral headaches R51 ; Environmental allergies Z91.09 ; Primary insomnia F51.01 and Nausea R11.0 [facility] [id number] [place] [address] 55175- 8067 15 Apr, 2016 [facility] [address] 17667- 0539 15 Apr, 2016 [facility] [id number] [place] [address] 60824- 2263 Apr, Post-traumatic stress disorder, unspecified F43.10 ; Major depressive disorder, recurrent, moderate F33.1 and Problems related to release from alf Z65.2 [facility] [id number] [place] [address] 89592- 2187 07 Apr, 2016 HTN (hypertension) I10 [facility] [id number] [place] [address] 93367- 3740 07 Apr, 2016 HTN (hypertension) I10 [facility] [id number] [place] [address] 20265- 3671 14 Mar, 2016 Chronic pain G89.29 ; Primary insomnia F51.01 and Problems related to release from alf Z65.2 [facility] [id number] [place] [address] 55138- 0914 07 Mar, 2016 Post-traumatic stress disorder, unspecified F43.10 ; Major depressive disorder, recurrent, moderate F33.1 and Problems related to release from alf Z65.2 [facility] [address] [place] [address] 14862- 1823 Feb, Post-traumatic stress disorder, unspecified F43.10 ; Major depressive disorder, recurrent, moderate F33.1 and Problems related to release from alf Z65.2 [facility] [id number] [place] [address] 82709- 7518 Feb, Chronic tension headaches G44.229 [facility] [id number] [place] [address] 47407- 6380 17 Feb, 2016 Sleep apnea, obstructive G47.33 [...] pacemaker replacement I49.9 and Primary insomnia F51.01 [facility] [id number] [place] [address] 86996- 8265 Feb, Post-traumatic stress disorder, unspecified F43.10 and Chronic pain G89.29 [address] [place] [address] 38109- 1333 Feb, [facility] [address] [place] [address] [id number] Feb, Dental caries K02.9 [facility] [address] [place] [address] 46519- 5357 Feb, [facility] [id number] [place] [address] 08546- 1905 Feb, Post-traumatic stress disorder, unspecified F43.10 ; Major depressive disorder, recurrent, moderate F33.1 and Problems related to release from alf Z65.2 [facility] [address] [address]- 0384 Jan, Sleep apnea, obstructive G47.33 and Chronic pain G89.29 [facility] [id number] [place] [address] 89199- 0981 Jan, [facility] [id number] [place] [address] 73819- 5410 14 Jan, 2016 Dental examination Z01.20 [facility] [id number] [place] [address] 94765- 5008 09 Jan, 2016 [facility] [id number] [place] [address] 84638- 4680 Jan, [facility] [id number] [place] [address] 73626- 9522 29 Dec, 2015 Post-traumatic stress disorder, unspecified F43.10 ; Major depressive disorder, recurrent, moderate F33.1 and Problems related to release from alf Z65.2 [facility] [id number] [place] [address] 31129- 2773 29 Dec, 2015 Encounter for immunization Z23 ; Problems related to release from alf Z65.2 ; Sleep apnea, obstructive G47.33 and Post-traumatic stress disorder, chronic F43.12 [place] [id number] [place] [address] 84761- 3154 18 Dec, 2015 Sleep apnea, obstructive G47.33 ; Hyperlipidemia E78.5 ; Chronic pain G89.29 ; Glaucoma H40.9 ; HTN (hypertension) I10 ; Post-traumatic stress disorder, unspecified F43.10 ; Anxiety F41.9 ; Chronic tension headaches G44.229 ; Mitral valve prolapse I34.1 and CAD (coronary artery disease) I25.10 [facility] [id number] [place] [address] 17288- 7030 15 Dec, 2015 Post-traumatic stress disorder, unspecified F43.10 ; Major depressive disorder, recurrent, moderate F33.1 and Problems related to release from alf Z65.2 [place] [address]- 8651 Nov, Chronic pain G89.29 [facility] [facility] [id number] [place] [address] 37764- 1415 Nov, Post-traumatic stress disorder, unspecified F43.10 ; Major depressive disorder, recurrent, moderate F33.1 and Problems related to release from alf Z65.2 [facility] [id number] [place] [address] 93316- 2671 Oct, [facility] [id number] [place] [address] 78724- 9665 Oct, [facility] [id number] [place] [address] 98914- 1774 Oct, Post-traumatic stress disorder, unspecified F43.10 ; Major depressive disorder, recurrent, moderate F33.1 and Problems related to release from alf Z65.2 [facility] [id number] [place] [address] 30858- 7252 08 Oct, 2015 [facility] [id number] [place] [address] 15391- 8935 07 Oct, 2015 Environmental allergies Z91.09 ; Cough R05 and Open-angle glaucoma of both eyes H40.10X0 [facility] [address] [place] [address] 54792- 5467 Sep, [facility] [address] [id number] [place] [address] [phone] Sep, Post-traumatic stress disorder, unspecified F43.10 ; Major depressive disorder, recurrent, moderate F33.1 and Problems related to release from alf Z65.2 [place] [address] [place] [id number] [place] [address] [phone] 2777 Sep, Chronic pain G89.29 [place] [id number] [place] [address] [phone] Sep, Pain in left shoulder M25.512 ; Pain in right shoulder M25.511 and Other chronic pain G89.29 [facility] [id number], [place] [address] Sep, [facility] [id number] [place] [address] [id number]- [phone] Sep, [facility] [id number] [place] [address] 44005- 4017 Sep, [facility] [id number] [place] [address] [id number] Aug, Dental examination Z01.20 [facility] [id number] [place] [address] 57347- 9410 Aug, Post-traumatic stress disorder, unspecified F43.10 ; Open- angle glaucoma of both eyes H40.10X0 and Problems related to release from alf Z65.2 [facility] [id number] [place] [address] 36000- 8130 Aug, [facility] [id number] [place] [address] 19203- 4990 Aug, Sleep apnea, obstructive G47.33 ; Obesity E66.9 ; Hyperlipidemia E78.5 ; Bilateral headaches R51 ; HTN (hypertension) I10 ; Post- traumatic stress disorder, unspecified F43.10 ; Anxiety F41.9 ; Neuropathy G62.9 ; Glaucoma H40.9 and Chronic pain G89.29 [facility] [address] [id number] Aug, Encounter for dental examination Z01.20 [facility] [id number] [place] [address] 14912- 9602 Aug, Post-traumatic stress disorder, unspecified F43.10 ; Major depressive disorder, recurrent, moderate F33.1 and Problems related to release from alf Z65.2 [facility] [address] [address] Aug, [facility] [id number] [place] [address] 32694- 5337 Jul, [facility] [address] [address] 69[address] Jul, Post-traumatic stress disorder, unspecified F43.10 and Major depressive disorder, recurrent, moderate F33.1 [facility] [address] [address] 277[address] Jul, [facility] [id number] [place] [address] 76534- 7104 Jul, [facility] [address] [address] 280[address] Jul, Chronic pain G89.29 [facility] [id number] [place] [address] 43322- 3168 June, Post-traumatic stress disorder, unspecified F43.10 and Major depressive disorder, recurrent, moderate F33.1 [facility] [address] [address] June, [facility] [address] [address] 6[address] June, Chronic pain G89.29 [facility] [id number] [place] [address] 95932- 3239 June, Post-traumatic stress disorder, unspecified F43.10 and Major depressive disorder, recurrent, moderate F33.1 [facility] [address] [address] May, Post-traumatic stress disorder, unspecified F43.10 and Major depressive disorder, recurrent, moderate F33.1 [facility] [address] [address] 1356 May, [facility] [address] [address] 9155 May, [facility] [address] [address] 6[address] May, [facility] [id number] [place] [address] 38386- 2868 Apr, [facility] [address] [address]- 7352 Apr, Post-traumatic stress disorder, unspecified F43.10 and Sleep apnea, obstructive G47.33 [place] [address] 74683- 1467 Apr, [facility] [id number] [place] [address] 58952- 6754 Apr, Shoulder pain, left M25.512 [place] [address] 20415- 8090 Apr, Post-traumatic stress disorder, unspecified F43.10 and Major depressive disorder, recurrent, moderate F33.1 [place] [address] 71662- 6104 Apr, [facility] [id number] [place] [address] 48962- 7885 Apr, [place] [id number] [place] [address] 50551- 3715 08 Apr, 2015 [facility] [id number] [place] [address] 51765- 8881 Apr, Left shoulder pain M25.512 [facility] [id number] [place] [address] 39322- 0984 Mar, [facility] [id number] [place] [address] 30759- 6036 Mar, [facility] [id number] [place] [address] 43648- 9062 18 Mar, 2015 [facility] [id number] [place] [address] 77386- 0880 Mar, Sleep apnea, obstructive G47.33 ; Obesity E66.9 ; Chronic pain G89.29 ; Hyperlipidemia E78.5 ; HTN (hypertension) I10 ; Blindness and low vision H54.10 ; Major depressive disorder, recurrent, moderate F33.1 and Anxiety F41.9 [place] [facility] [id number] [place] [address] 39384- 1014 Mar, [place] [facility] [id number] [place] [address] 82302- 6923 Mar, Post-traumatic stress disorder, unspecified F43.10 and Major depressive disorder, recurrent, moderate F33.1 [place] [facility] [id number] [place] [address] 75412- 7567 Mar, [place] 463254- 1417 04 Mar, 2015 HTN (hypertension) I10 ; Blindness and low vision H54.10 ; Obesity E66.9 ; Hyperlipidemia E78.5 ; Glaucoma H40.9 ; Chronic pain G89.29 and CAD (coronary artery disease) I25.10 [place] [id number] [place] [address] 89687- 2638 Feb, [place] [id number] [place] [address] 15790- 0766 Feb, Post-traumatic stress disorder, unspecified F43.10 ; Obesity E66.9 ; Sleep apnea, obstructive G47.33 and Open-angle glaucoma of both eyes H40.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 [facility] [facility] [id number] [place] [address] 21303- 6438 Feb, Post-traumatic stress disorder, unspecified F43.10 and Major depressive disorder, recurrent, moderate F33.1 [place] [facility] [id number] [place] [address] 05470- 6140 Feb, [facility] [id number] [place] [address] 00632- 3463 Feb, [facility] [facility] [id number] [place] [address] 36905- 5542 Feb, HTN (hypertension) I10 ; Post-traumatic stress disorder, unspecified F43.10 ; Blindness and low vision H54.10 ; Obesity E66.9 ; Hyperlipidemia E78.5 ; Chronic pain G89.29 ; Glaucoma H40.9 ; Mitral valve prolapse I34.1 and Bilateral headaches R51 [place] [address] 90432- 9565 Feb, [place] [address] 269872- 5182 Feb, Post-traumatic stress disorder, unspecified F43.10 and Major depressive disorder, recurrent, moderate F33.[address] 02[address]- 1138 Feb, [place] [address] 75496- 8762 Feb, [place] [address] 96285- 1649 Jan, [place] [address] 87976- 7833 Jan, [address] 10549- 7039 Jan, Obesity E66.9 ; HTN (hypertension) I10 ; Blindness and low vision H54.10 ; Major depressive disorder, recurrent, moderate F33.1 ; Glaucoma H40.9 ; Hyperlipidemia E78.5 ; Sleep apnea, obstructive G47.33 ; Chronic pain G89.29 ; Anxiety F41.9 ; Chronic tension headaches G44.229 and Cough R05 [address] [address]77- 2219 Jan, [place] [id number]- 3246 Jan, [address] 12295- 6896 Jan, Post-traumatic stress disorder, unspecified F43.10 ; Obesity E66.9 ; Sleep apnea, obstructive G47.33 and Open-angle glaucoma of both eyes H40.10X0 [place] [address] [id number]- 1614 Jan, [place] [address] 743417- 1316 Jan, Post-traumatic stress disorder, unspecified F43.10 and Major depressive disorder, recurrent, moderate F33.1 [place] [address] 93478- 1237 Dec, [place] [address] 743417- 9263 Dec, Sleep apnea, obstructive G47.33 ; Obesity E66.9 ; Hyperlipidemia E78.5 ; Glaucoma H40.9 ; Chronic pain G89.29 ; HTN (hypertension ) I10 ; Blindness and low vision H54.10 ; Anxiety F41.9 and CAD (coronary artery disease) I25.10 [place] [address] 12832- 6745 Nov, [place] [address] 98537- 6687 Nov, [place] [address] 53005- 3756 Nov, [place] [address] 40161- 5927 Nov, [place] [address] 19045- 5486 Nov, [place] [id number]- 8889 Nov, Encounter for immunization Z23 ; Sleep apnea, obstructive G47.33 ; Obesity E66.9 ; Hyperlipidemia E78.5 ; Glaucoma H40.9 ; Chronic pain G89.29 ; Anxiety F41.9 ; Chronic tension headaches G44.229 and HTN (hypertension ) I10 [facility] [address] [address]- 4409 Nov, [facility] [id number] [place] [address] 53150- 8529 Nov, [facility] [id number] [place] [address] 76652- 6715 Nov, Dizziness R42 [facility] [id number] [place] [address] 76758- 8016 Nov, [facility] [id number] [place] [address] 28432- 0785 Oct, [facility] [id number] [place] [address] 22786- 7385 Oct, [facility] [id number] [place] [address] 44017- 9508 Oct, [facility] [id number] [place] [address] 22219- 2240 Oct, [facility] [id number] [place] [address] 97120- 5491 Oct, Dizziness 780.4 ; Essential hypertension 401.9 ; Obesity 278.00 ; Hyperlipidemia 272.4 ; Chronic pain 338.29 ; Glaucoma 365.9 and Anxiety 300.00 [facility] [id number] [place] [address] 90405- 6127 Oct, Essential hypertension 401.9 ; Hyperlipidemia 272.4 ; Glaucoma 365.9 ; Obesity 278.00 ; Chronic pain 338.29 and Allergy to insects V15.06 [facility] [id number] [place] [address] 95902- 8974 Sep, [facility] [id number] [place] [address] 06891- 4223 Sep, [facility] [id number] [place] [address] 67611- 1564 Sep, [facility] [id number] [address]- 4356 Sep, [facility] [address] [facility] [id number] [place] [address]- 9116 Aug, Essential hypertension 401.9 ; Obesity 278.00 ; Hyperlipidemia 272.4 ; Glaucoma 365.9 ; Lipoma 214.9 ; Mitral valve prolapse 424.0 ; Angina at rest 413.9 ; Lymphedema 457.1 and Chronic pain 338.29 IMMUNIZATIONS No Known Immunizations SOCIAL HISTORY Never Assessed REASON FOR VISIT referral update PLAN OF CARE VITAL SIGNS MEDICATIONS Unknown [...]
--- OUTSIDE RECORDS SUMMARY | 2018-02-04 15:04 | XMS REPORT | Continuity of Care Document ---
Author Author [facility] Organization [facility] Address Unknown Phone Unavailable Care Team Providers Care Insurance And Financial Services Agent Name Role Phone [facility] PCP Insurance Providers Payer Name Policy Number Subscriber Name Relationship [facility] [employer] [id number] Gama Velásquez Jr 18 Self / Same As Patient Advance Directives Directive Response Recorded Date/Time Advance Directives No 12/09/14 10:16am Organ Donor Yes 12/09/14 10:16am Resuscitation Status Full Code 12/09/14 10:16am Chief Complaint and Reason for Visit Chief Complaint Upper Extremity Reason for Visit [id number] Problems Active Problems Medical Problem Onset Date Status Cellulitis of left thigh Unknown Acute Cellulitis of left thigh Unknown Acute Drug-seeking behavior Unknown Acute Drug-seeking behavior Unknown Acute Postoperative pain Unknown Acute Postoperative pain Unknown Acute Right wrist sprain Unknown Acute Medications Current Home Medications Medication Dose Units Route Directions Days/Qty Instructions Start Date Alprazolam 0.5 Mg 0.5 Mg Oral Twice A Day 12/09/14 Hydrocodone/Acetaminophen 1 Each 1 Each Oral Four Times Daily Meclizine Hcl 25 Mg 25 Mg Oral Three Times A Day as needed for Dizziness 12/09/14 Past Home Medications Medication Directions Ordered Status [...] as needed for Severe Pain 08/24/14 Discontinued Social History Social History Problem Response Recorded Date/Time Alcohol Use Denies Use 12/09/2014 10:16am Recreational Drug Use No 12/09/2014 10:16am Recent Foreign Travel No 12/09/2014 10:16am Recent Infectious Disease Exposure No 12/09/2014 10:16am Hospitalization with Isolation Denies 12/09/2014 10:16am Smoking Status Never a Smoker 12/09/2014 10:16am Query Response Start Date Stop Date Smoking Status Never a Smoker Hospital Discharge Instructions No hospital discharge instructions. Plan of Care Discharge Date 12/09/14 10:53am Disposition 01 HOME, SELF-CARE Condition at Discharge Stable/Unchanged Instructions/Education Provided Wrist Injury (ED) Prescriptions See Medication Section Referrals [facility] - Primary Care Physician Additional Instructions/Education All discharge instructions reviewed with patient and/or family. Voiced understanding. Ice pack to affected area intermittently today. You may use ibuprofen or Tylenol for pain. No heat to area for 48 hours. Functional Status No functional status results. Allergies, Adverse Reactions, Alerts Allergen Type Severity Reaction Status Last Updated Penicillins ([id number]) Allergy Unknown Active 07/19/14 Aspirin Allergy Unknown Active 07/19/14 Immunizations No immunization records. Vital Signs Acute Vital Signs Vital Response Date/Time Temperature (Fahrenheit) 97.4 degrees F (97.6 - 99.5) 12/09/2014 10:16am Temperature (Calculated Celsius) 36.46503 degrees C (36.4 - 37.5) 12/09/2014 10:16am Pulse Rate (adult) 61 bpm (60 - 90) 12/09/2014 10:16am Respiratory Rate 20 bpm (12 - 24) 12/09/2014 10:16am O2 Sat by Pulse Oximetry 97 % (88 - 100) 12/09/2014 10:16am Blood Pressure 148/97 mm Hg 12/09/2014 10:16am Blood Pressure Mean 114 mm Hg 12/09/2014 10:16am Pain Pain Intensity 5 12/09/2014 10:16am Height (Feet) 5 feet 12/09/2014 10:16am Height (Inches) 7 inches 12/09/2014 10:16am Height (Calculated Centimeters) 170.090490 cm 12/09/2014 10:16am Weight (Pounds) 300 pounds 12/09/2014 10:16am Weight (Calculated Kilograms) 136.624658 kilograms 12/09/2014 10:16am Calculated BMI 46.98 12/09/2014 10:16am Results No known relevant diagnostic tests, laboratory data and/or discharge summary. Procedures No known history of procedures. Encounters Encounter Location Arrival/Admit Date Discharge/Depart Date Attending Provider Departed Emergency Room [facility] 12/09/14 10:05am 02/22 10:53am CONNOR PAULSON MD Departed Clinic [facility] 12/08/14 8:41pm 12/09/14 5: 24am ABHISHEK PARISH APRN Registered Clinic [facility] 11/12/14 4:10pm EDUIN CARDONA Recent Diagnosis
--- OUTSIDE RECORDS SUMMARY | 2018-02-04 15:04 | XMS REPORT ---
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 [employer] Engineer Name Role Phone JC EDGE Unavailable PROBLEMS Type Condition ICD9-CM Code PWC58-OX Code Onset Dates Condition Status SNOMED Code Problem Primary insomnia F51.01 Active 2272045 Problem Other male erectile dysfunction N52.8 Active 462299297 Problem Morbid (severe) obesity due to excess calories E66.01 Active 877511705 Problem Sarcoidosis D86.9 Active 29192911 Problem Blindness and low vision H54.10 Active 472982569 Problem Problems related to release from snf Z65.2 Active 881481975236760 Problem Myocarditis, unspecified chronicity, 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 Active 56961198 Problem Chronic pain G89.29 Active 21035878 Problem 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 Active 724599281 Problem Body mass index (BMI) of 40.0-44.9 in adult Z68.41 Active 838798062 Problem Chronic pain syndrome G89.4 Active 687641009 Problem Migraine without aura and without status migrainosus, not intractable G43.009 Active 453420086 Problem Anxiety F41.9 Active 57910413 Problem Major depressive disorder, recurrent, moderate F33.1 Active 40948019 Problem HTN (hypertension) I10 Active 76573811 Problem Chronic tension headaches G44.229 Active 383709135 Problem CAD (coronary artery disease) I25.10 Active 97880822 Problem Post-traumatic stress disorder, chronic F43.12 Active 933601359 Problem Hyperlipidemia E78.5 Active 50904760 Problem Open-angle glaucoma of both eyes H40.10X0 Active 35073599 Problem Environmental allergies Z91.09 Active 436253403 Problem Sleep apnea, obstructive G47.33 Active 63276552 Problem Mitral valve prolapse I34.1 Active 100312991 Problem Arrhythmia as indication for cardiac pacemaker replacement I49.9 Active 88948519 ALLERGIES No Information ENCOUNTERS Encounter Location Date Diagnosis [place] [id number] [place] [address] 95854- 9122 Oct, [place] [address] 08010- 5470 Aug, [place] [address] 19582- 4332 26 Jul, 2017 Post-traumatic stress disorder, chronic F43.12 ; Anxiety F41.9 ; Problems related to release from snf Z65.2 and BMI 40.0-44.9, adult Z68.41 [place] [address] 78626- 5648 20 Jul, 2017 HTN (hypertension) I10 ; Body mass index (BMI) of 40.0-44.9 in adult Z68.41 and Acute swimmer''s ear of both sides H60.333 [place] [address] 61902- 6273 19 Jul, 2017 Glaucoma H40.9 [place] [address] [place] [id number] [place] [address] 63398- 9330 14 Jul, 2017 [place] [address] [place] [id number] [place] [address] 47597- 9912 13 Jul, 2017 Sarcoidosis D86.9 [place] [address] [place] [id number] [place] [address] 00193- 7105 Jul, Left leg pain M79.605 [place] [address] [place] [id number] [place] [address] 51552- 4651 12 Jul, 2017 Sarcoidosis D86.9 [place] [address] [place] [id number] [place] [address] 50451- 0478 Jul, Post-traumatic stress disorder, unspecified F43.10 ; Major depressive disorder, recurrent, moderate F33.1 and Problems related to release from snf Z65.2 [place] [address] 64268- 8864 June, [facility] [address] [address] June, Sore throat J02.9 and BMI 40.0-44.9, adult Z68.41 [facility] [address] [address] 4[address] June, [facility] [address] [place] [id number] [place] [address] 09385- 3455 June, [facility] [address] [place] [id number] [place] [address] 55071- 7344 June, [facility] [address] [place] [id number] [place] [address] 46852- 8698 June, Left leg pain M79.605 [facility] [address] [place] [id number] [place] [address] 79779- 8006 June, Sarcoidosis D86.9 [facility] [address] [place] [id number] [place] [address] 60102- 4281 June, [facility] [address] [place] [id number] [place] [address] 47772- 8552 June, [facility] [address] [place] [id number] [place] [address] 68154- 8479 June, Left leg pain M79.605 [facility] [address], [place] [address] 4072 May, [facility] [address] [place] [address] [address]- 5427 May, [facility] [address] [place] [address] [address]- 3690 May, [facility] [address] [place] [id number] [place] [address] 16817- 8992 May, Left leg pain M79.605 [facility] [address] [address]- 4388 May, Post-traumatic stress disorder, unspecified F43.10 ; Major depressive disorder, recurrent, moderate F33.1 and Problems related to release from snf Z65.2 [place] [address] [place] [id number] [place] [address] 03456- 0201 May, Chronic pain G89.29 ; Anxiety F41.9 ; Chest pain, unspecified type R07.9 and BMI 40.0-44.9, adult Z68.41 [place] [address] [place] [id number] [place] [address] 59641- 4833 30 Apr, 2017 [place] [address] [place] [id number] [place] [address] 14670- 0503 Apr, Left leg pain M79.605 [place] [address] [place] [id number] [place] [address] 07477- 5007 27 Apr, 2017 Post-traumatic stress disorder, unspecified F43.10 ; Problems related to release from snf Z65.2 ; Anxiety F41.9 and BMI 40.0-44.9 , adult Z68.41 [place] [address] [place] [id number] [place] [address] 53128- 3434 Apr, [place] [address] [place] [id number] [place] [address] 71354- 1235 Apr, Left leg pain M79.605 [place] [address] [place] [address] [place] [address] 07648- 0866 Apr, Post-traumatic stress disorder, unspecified F43.10 ; Major depressive disorder, recurrent, moderate F33.1 and Problems related to release from snf Z65.2 [place] [address] [place] [address] 16338- 9101 Apr, [place] [address] [place] [id number] [place] [address] 79205- 4565 Apr, Chronic pain G89.29 ; 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 ; Morbid (severe) obesity due to excess calories E66.01 ; Anxiety F41.9 and BMI 40.0-44.9, adult Z68.41 [facility] [address] [place] [id number] [place] [address] 54895 -7554 Apr, Sore throat J02.9 and BMI 40.0-44.9, adult Z68.41 [place] [address] [place] [id number] [place] [address] 21709- 2490 02 Apr, 2017 Left leg pain M79.605 [facility] [address] [id number] Mar, Dental examination Z01.20 [place] [address] 28649- 4149 Mar, [facility] [address] 80227 -1809 20 Mar, 2017 Cough R05 ; Viral gastroenteritis A08.4 and BMI 40.0-44.9, adult Z68.41 [place] [address] 37205- 1592 Mar, Left leg pain M79.605 [place] [address] 35900- 3377 06 Mar, 2017 Post-traumatic stress disorder, unspecified F43.10 ; Major depressive disorder, recurrent, moderate F33.1 and Problems related to release from snf Z65.2 [place] [address] 72210- 1935 Feb, Left leg pain M79.605 [place] [address] 82453- 4533 Feb, [place] [address] 32262- 0771 Feb, BMI 40.0-44.9, adult Z68.41 ; Chronic pain syndrome G89.4 ; Migraine without aura and without status migrainosus, not intractable G43.009 ; Mitral valve prolapse I34.1 and 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 [place] [address], [place] [address]- 0798 Feb, Post-traumatic stress disorder, chronic F43.12 ; Anxiety F41.9 ; Problems related to release from snf Z65.2 and BMI 40.0-44.9, adult Z68.41 [facility] [address] [place] [id number] [place] [address] 57508- 4636 Feb, Post-traumatic stress disorder, unspecified F43.10 ; Major depressive disorder, recurrent, moderate F33.1 and Problems related to release from snf Z65.2 [facility] [address] [place] [address] [address]- 8387 Feb, Left leg pain M79.605 [facility] [address] [place] [id number] [place] [address] 25398- 6976 Jan, Post-traumatic stress disorder, unspecified F43.10 ; Major depressive disorder, recurrent, moderate F33.1 and Problems related to release from snf Z65.2 [facility] [address] [place] [address] 38193- 5235 Jan, [facility] [address] [place] [id number] [place] [address] 50219- 9636 Jan, [facility] [address] [place] [address] 58363- 1442 Jan, Anxiety F41.9 [facility] [address] [place] [id number] [place] [address] 54105- 6273 Jan, Left leg pain M79.605 [facility] [address] [place] [id number], [place] [address]- 3216 Dec, Left leg pain M79.605 [facility] [address] [place] [id number] [place] [address] 83540- 0446 Dec, [facility] [address] [place] [address], [place] [address]- 2878 Dec, Post-traumatic stress disorder, unspecified F43.10 ; Major depressive disorder, recurrent, moderate F33.1 and Problems related to release from snf Z65.2 [place] [address] [place] [id number] [place] [address] 91311- 3632 31 Nov, 2016 Chronic pain G89.29 and Anxiety F41.9 [place] [address] [place] [id number] [place] [address] 91922- 6659 24 Nov, 2016 Chronic pain G89.29 and Anxiety F41.9 [place] [address] 706099- 2363 16 Nov, 2016 Post-traumatic stress disorder, unspecified F43.10 ; Major depressive disorder, recurrent, moderate F33.1 and Problems related to release from snf Z65.2 [place] [address] [place] [id number] [place] [address] 52647- 8266 09 Nov, 2016 Other abnormal findings in specimens from other organs, systems and tissues R89.8 ; Other male erectile dysfunction N52.8 ; Body mass index (BMI) of 40.0-44.9 in adult Z68.41 and Morbid (severe) obesity due to excess calories E66.01 [place] [address] 10797- 2235 02 Nov, 2016 Post-traumatic stress disorder, unspecified F43.10 ; Major depressive disorder, recurrent, moderate F33.1 and Problems related to release from snf Z65.2 [facility] [address] [place] [id number] [place] [address] [id number] Oct, Dental examination Z01.20 [place] [address] [place] [id number] [place] [address] 18259- 5964 Oct, [place] [address] 89398- 2034 Oct, Encounter for immunization Z23 [place] [address] [place] [id number] [place] [address] 05273- 8950 Oct, Chronic pain G89.29 ; Anxiety F41.9 ; Arrhythmia as indication for cardiac pacemaker replacement I49.9 and Glaucoma H40.9 [place] [address], [place] [address]- 3861 Oct, Anxiety F41.9 ; Post-traumatic stress disorder, chronic F43.12 and Problems related to release from snf Z65.2 [place] [address] [place] [id number] [place] [address] 70898- 0694 Oct, Post-traumatic stress disorder, unspecified F43.10 ; Major depressive disorder, recurrent, moderate F33.1 and Problems related to release from snf Z65.2 [place] [address] [place] [id number] [place] [address] 35396- 6071 Sep, Chronic pain G89.29 and Anxiety F41.9 [place] [address] [place] [id number] [place] [address] 69684- 5515 Sep, Post-traumatic stress disorder, unspecified F43.10 ; Major depressive disorder, recurrent, moderate F33.1 and Problems related to release from snf Z65.2 [place] [address] [place] [id number] [place] [address] 98500- 6952 Sep, Post-traumatic stress disorder, unspecified F43.10 ; Major depressive disorder, recurrent, moderate F33.1 and Problems related to release from snf Z65.2 [place] [address] [place] [address] 85994- 3811 Sep, Chronic pain G89.29 [place] [address] [place] [id number] [place] [address] 74433- 1544 Aug, Dental caries, unspecified K02.9 [place] [address] [place] [address] 78758- 6415 Aug, Sleep apnea, obstructive G47.33 ; Obesity [...] [facility] [address] [place] [id number] [place] [address] 73774- 0857 Aug, Post-traumatic stress disorder, unspecified F43.10 ; Major depressive disorder, recurrent, moderate F33.1 and Problems related to release from snf Z65.2 [facility] [address] 37025- 6917 Aug, Dental examination Z01.20 [facility] [address] [place] [id number] [place] [address] [id number] Aug, Dental examination Z01.20 [facility] [address] 79311- 9798 Aug, Post-traumatic stress disorder, unspecified F43.10 ; Major depressive disorder, recurrent, moderate F33.1 and Problems related to release from snf Z65.2 [place] [address] 45212- 6061 Aug, Chronic pain G89.29 and Primary insomnia F51.01 [place] [address] 91196- 1105 Jul, [place] [address] 52489- 8638 Jul, [place] [address] 10996- 5463 Jul, Nausea R11.0 [place] [address] 91063- 0072 Jul, Arrhythmia as indication for cardiac pacemaker replacement I49.9 [place] [address] 89131- 1747 Jul, Post-traumatic stress disorder, unspecified F43.10 ; Major depressive disorder, recurrent, moderate F33.1 and Problems related to release from snf Z65.2 [place] [address] 11395- 7755 09 Jul, 2016 Anxiety F41.9 [place] [address] [place] [id number] [place] [address] 85060- 8188 08 Jul, 2016 Chronic pain G89.29 [place] [address] [place] [id number] [place] [address] 06220- 2537 Jul, Sleep apnea, obstructive G47.33 ; Hyperlipidemia E78.5 ; Chronic pain G89.29 ; Blindness and low vision H54.10 ; Major depressive disorder, recurrent, moderate F33.1 ; Anxiety F41.9 ; Mitral valve prolapse I34.1 ; Arrhythmia as indication for cardiac pacemaker replacement I49.9 ; Primary insomnia F51.01 ; Bilateral headaches R51 and Environmental allergies Z91.09 [place] [address] [place] [address] 11585- 9069 Jul, Post-traumatic stress disorder, unspecified F43.10 ; Major depressive disorder, recurrent, moderate F33.1 and Problems related to release from snf Z65.2 [place] [address] [place] [id number] [place] [address] 74219- 1614 June, Post-traumatic stress disorder, chronic F43.12 ; Anxiety F41.9 ; Problems related to release from snf Z65.2 ; Sleep apnea, obstructive G47.33 and Primary insomnia F51.01 [place] [address] [place] [address] 18392- 1703 June, [place] [address] [place] [address] 66678- 6115 June, [place] [address] [place] [address] 22360- 2156 June, [place] [address] [place] [id number] [place] [address] 08396- 0558 June, Chronic pain G89.29 [place] [address], [place] [address]- 0389 June, Chronic pain G89.29 [place] [address] [place] [id number] [place] [address] 49770- 7560 June, Lipoma of left lower extremity D17.24 ; Open wound T14.8 and Swelling of left lower extremity M79.89 [place] [address] [place] [id number] [place] [address] 16009- 0641 June, Post-traumatic stress disorder, unspecified F43.10 ; Major depressive disorder, recurrent, moderate F33.1 and Problems related to release from snf Z65.2 [place] [address] [place] [id number] [place] [address] 58506- 6233 May, Lipoma of left lower extremity D17.24 ; Major depressive disorder, recurrent, moderate F33.1 ; Sleep apnea, obstructive G47.33 ; Hyperlipidemia E78.5 ; Obesity E66.9 ; HTN (hypertension) I10 ; Glaucoma H40.9 ; CAD (coronary artery disease) I25.10 ; Chronic tension headaches G44.229 ; Chronic pain G89.29 ; Anxiety F41.9 ; Nausea R11.0 and Primary insomnia F51.01 [place] [address] [place] [id number] [place] [address] 99865- 1848 May, [place] [address] 36937- 3160 May, Chronic pain G89.29 [place] [address] 64587- 3770 May, [place] [address] 46810- 7104 Apr, Post-traumatic stress disorder, unspecified F43.10 ; Major depressive disorder, recurrent, moderate F33.1 and Problems related to release from snf Z65.2 [place] [address] [place] [address] [place] [address] 90898- 9022 Apr, Primary insomnia F51.01 ; Post-traumatic stress disorder, chronic F43.12 and Problems related to release from snf Z65.2 [place] [address] 93943- 0979 17 Apr, 2016 Post-traumatic stress disorder, unspecified F43.10 ; Major depressive disorder, recurrent, moderate F33.1 and Problems related to release from snf Z65.2 [place] [address] [place] [address] 25127- 7987 16 Apr, 2016 [place] [address] [place] [address] [place] [address] 52197- 4955 16 Apr, 2016 Sleep apnea, obstructive G47.33 ; Chronic pain G89.29 ; HTN (hypertension) I10 ; Mitral valve prolapse I34.1 ; Shoulder pain, left M25.512 ; Arrhythmia as indication for cardiac pacemaker replacement I49.9 ; Glaucoma H40.9 ; Bilateral headaches R51 ; Environmental allergies Z91.09 ; Primary insomnia F51.01 and Nausea R11.0 [place] [address] [place] [address] [place] [address] 72837- 5137 15 Apr, 2016 [place] [address] [place] [id number] [place] [address] 23675- 3465 Apr, [place] [address] [place] [address] [place] [address] 66966- 7155 Apr, Post-traumatic stress disorder, unspecified F43.10 ; Major depressive disorder, recurrent, moderate F33.1 and Problems related to release from snf Z65.2 [place] [address] [place] [address] 74438- 5788 07 Apr, 2016 HTN (hypertension) I10 [place] [address] [place] [id number] [place] [address] 45514- 6432 07 Apr, 2016 HTN (hypertension) I10 [place] [address] [place] [id number] [place] [address] 24450- 2701 14 Mar, 2016 Chronic pain G89.29 ; Primary insomnia F51.01 and Problems related to release from snf Z65.2 [place] [address] [place] [id number] [place] [address] 20635- 1106 07 Mar, 2016 Post-traumatic stress disorder, unspecified F43.10 ; Major depressive disorder, recurrent, moderate F33.1 and Problems related to release from snf Z65.2 [place] [address] [place] [address] [place] [address] 73331- 1581 Feb, Post-traumatic stress disorder, unspecified F43.10 ; Major depressive disorder, recurrent, moderate F33.1 and Problems related to release from snf Z65.2 [place] [address] 48025- 3435 Feb, Chronic tension headaches G44.229 [place] [address] [place] [address] [place] [address] 74112- 5601 Feb, Sleep apnea, obstructive G47.33 ; Obesity [...] pacemaker replacement I49.9 and Primary insomnia F51.01 [place] [address] [place] [id number] [place] [address] 68809- 6544 Feb, Post-traumatic stress disorder, unspecified F43.10 and Chronic pain G89.29 [place] [id number] [place] [address] 10429- 2440 Feb, [facility] [address] [id number] [place] [address] [id number] Feb, Dental caries K02.9 [place] [address] 62036- 1344 Feb, [place] [address] 57580- 6871 Feb, Post-traumatic stress disorder, unspecified F43.10 ; Major depressive disorder, recurrent, moderate F33.1 and Problems related to release from snf Z65.2 [place] [address], [place] [address]- 5590 Jan, Sleep apnea, obstructive G47.33 and Chronic pain G89.29 [place] [address], [place] [address]- 4522 Jan, [place] [address], [place] [address]- 4610 14 Jan, 2016 Dental examination Z01.20 [place] [address] [place] [address] [address]- 6383 09 Jan, [address] [place] [address] [place] [address] 44492- 7373 Jan, [place] [address], [place] [address]- 4224 29 Dec, 2015 Post-traumatic stress disorder, unspecified F43.10 ; Major depressive disorder, recurrent, moderate F33.1 and Problems related to release from snf Z65.[address] [place] [address] 19745- 7439 29 Dec, 2015 Encounter for immunization Z23 ; Problems related to release from snf Z65.2 ; Sleep apnea, obstructive G47.33 and Post-traumatic stress disorder, chronic F43.12 [address] [place] [address]- 2200 18 Dec, 2015 Sleep apnea, obstructive G47.33 ; Hyperlipidemia E78.5 ; Chronic pain G89.29 ; Glaucoma H40.9 ; HTN (hypertension) I10 ; Post-traumatic stress disorder, unspecified F43.10 ; Anxiety F41.9 ; Chronic tension headaches G44.229 ; Mitral valve prolapse I34.1 and CAD (coronary artery disease) I25.10 [address] [place] [address]- 8217 15 Dec, 2015 Post-traumatic stress disorder, unspecified F43.10 ; Major depressive disorder, recurrent, moderate F33.1 and Problems related to release from snf Z65.2 [place] [address] [address]- 2820 Nov, Chronic pain G89.29 [place] [address] [place] [id number] [place] [address] 99790- 1075 Nov, Post-traumatic stress disorder, unspecified F43.10 ; Major depressive disorder, recurrent, moderate F33.1 and Problems related to release from snf Z65.2 [place] [address] [place] [address] [place] [address] 00852- 5049 Oct, [place] [address] [place] [id number] [place] [address] 52993- 8421 Oct, [place] [address] [place] [address] [place] [address] 05505- 9072 Oct, Post-traumatic stress disorder, unspecified F43.10 ; Major depressive disorder, recurrent, moderate F33.1 and Problems related to release from snf Z65.2 [place] [address] [place] [id number] [place] [address] 79549- 6714 08 Oct, 2015 [place] [address] [place] [address] [place] [address] 84326- 1157 07 Oct, 2015 Environmental allergies Z91.09 ; Cough R05 and Open-angle glaucoma of both eyes H40.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 [place] [address] [address]- 5484 Sep, [place] [address] [place] [address] [place] [address] 88[address]- 3081 Sep, Post-traumatic stress disorder, unspecified F43.10 ; Major depressive disorder, recurrent, moderate F33.1 and Problems related to release from snf Z65.2 [place] [id number] [place] [address] 607[address]- 6491 16 Sep, 2015 Chronic pain G89.29 [place] [id number] [place] [address] 078[address]- 6400 Sep, Other chronic pain G89.29 ; Pain in right shoulder M25.511 and Pain in left shoulder M25.512 [facility] [id number] [place] [address] [phone]- [phone] Sep, [facility] [id number] [place] [address] 475[address]- 5484 Sep, [facility] [id number] [place] [address] [phone]- [phone] Sep, [facility] [id number] [place] [address] [id number] Aug, Dental examination Z01.20 [facility] [id number] [place] [address] 38797- 3923 Aug, Post-traumatic stress disorder, unspecified F43.10 ; Open- angle glaucoma of both eyes H40.10X0 and Problems related to release from snf Z65.2 [facility] [id number] [place] [address] 79053- 2487 Aug, [facility] [id number] [place] [address] 90138- 7814 Aug, Sleep apnea, obstructive G47.33 ; Obesity E66.9 ; Hyperlipidemia E78.5 ; Bilateral headaches R51 ; HTN (hypertension) I10 ; Post- traumatic stress disorder, unspecified F43.10 ; Anxiety F41.9 ; Neuropathy G62.9 ; Glaucoma H40.9 and Chronic pain G89.29 [facility] [address] [place] [address] [id number] Aug, Encounter for dental examination Z01.20 [facility] [id number] [place] [address] 70727- 6823 Aug, Post-traumatic stress disorder, unspecified F43.10 ; Major depressive disorder, recurrent, moderate F33.1 and Problems related to release from snf Z65.2 [facility] [id number] [place] [address] 18904- 1429 Aug, [facility] [id number] [place] [address] 04121- 1165 Jul, [facility] [id number] [address] Jul, Post-traumatic stress disorder, unspecified F43.10 and Major depressive disorder, recurrent, moderate F33.1 [facility] [address] [address] Jul, [facility] [id number] [place] [address] 10334- 2075 Jul, [facility] [id number], [place] [address] 8398 Jul, Chronic pain G89.29 [facility] [address] [place] [address] 43968- 2245 June, Post-traumatic stress disorder, unspecified F43.10 and Major depressive disorder, recurrent, moderate F33.1 [facility] [address], [place] [address] June, [facility] [address], [place] [address] 4411 June, Chronic pain G89.29 [facility] [address] [address] June, Post-traumatic stress disorder, unspecified F43.10 and Major depressive disorder, recurrent, moderate F33.1 [facility] [address], [place] [address] May, Post-traumatic stress disorder, unspecified F43.10 and Major depressive disorder, recurrent, moderate F33.1 [facility] [address], [place] [address] 64[address] May, [facility] [id number], [place] [address] 1298 May, [facility] [address] [place] [address] 3376 May, [facility] [address] [place] [address] 30689- 1798 Apr, [facility] [id number] [place] [address] 205047- 6921 Apr, Post-traumatic stress disorder, unspecified F43.10 and Sleep apnea, obstructive G47.33 [facility] [id number] [place] [address] 83309- 1098 Apr, [facility] [id number] [place] [address] 44870- 8485 Apr, Shoulder pain, left M25.512 [facility] [id number] [place] [address] 02766- 5157 Apr, Post-traumatic stress disorder, unspecified F43.10 and Major depressive disorder, recurrent, moderate F33.1 [facility] [id number] [place] [address] 56194- 3235 Apr, [facility] [id number] [place] [address] 02086- 9102 Apr, [facility] [id number] [place] [address] 22016- 6681 Apr, [facility] [id number] [place] [address] 65873- 2059 Apr, Left shoulder pain M25.512 [facility] [id number] [place] [address] 74911- 7105 Mar, [facility] [id number] [place] [address] 26494- 8194 Mar, [facility] [id number] [place] [address] 41576- 7044 Mar, [facility] [address] [place] [address] 762249- 9431 Mar, Sleep apnea, obstructive G47.33 ; Obesity E66.9 ; Chronic pain G89.29 ; Hyperlipidemia E78.5 ; HTN (hypertension) I10 ; Blindness and low vision H54.10 ; Major depressive disorder, recurrent, moderate F33.1 and Anxiety F41.9 [address] [id number] [place] [address] 81706- 5079 Mar, [address] [id number] [place] [address] 27037- 9788 Mar, Post-traumatic stress disorder, unspecified F43.10 and Major depressive disorder, recurrent, moderate F33.1 [place] [id number] [place] [address] 57517- 5268 Mar, [address] [address] 092480- 1541 04 Mar, 2015 HTN (hypertension) I10 ; Blindness and low vision H54.10 ; Obesity E66.9 ; Hyperlipidemia E78.5 ; Glaucoma H40.9 ; Chronic pain G89.29 and CAD (coronary artery disease) I25.10 [place] [id number] [place] [address] 79663- 7095 Feb, [place] [id number] [place] [address]7 Feb, Post-traumatic stress disorder, unspecified F43.10 ; Obesity E66.9 ; Sleep apnea, obstructive G47.33 and Open-angle glaucoma of both eyes H40.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 [place] [id number] [place] [address] 28609- 6287 Feb, Post-traumatic stress disorder, unspecified F43.10 and Major depressive disorder, recurrent, moderate F33.1 [place] [id number] [place] [address] 72093- 9551 Feb, [place] [id number] [place] [address] 49287- 2735 Feb, [address] [address] 45848- 8423 Feb, HTN (hypertension) I10 ; Post-traumatic stress disorder, unspecified F43.10 ; Blindness and low vision H54.10 ; Obesity E66.9 ; Hyperlipidemia E78.5 ; Chronic pain G89.29 ; Glaucoma H40.9 ; Mitral valve prolapse I34.1 and Bilateral headaches R51 [place] [id number] [place] [address] 26648- 7591 Feb, [address] 487557- 3860 Feb, Post-traumatic stress disorder, unspecified F43.10 and Major depressive disorder, recurrent, moderate F33.[address] 84922- 8175 Feb, [address] 51453- 4857 Feb, [address] 73216- 6840 Jan, [place] [id number] [place] [address] 27957- 3855 Jan, [address] 27721- 0706 Jan, Obesity E66.9 ; HTN (hypertension) I10 ; Blindness and low vision H54.10 ; Major depressive disorder, recurrent, moderate F33.1 ; Glaucoma H40.9 ; Hyperlipidemia E78.5 ; Sleep apnea, obstructive G47.33 ; Chronic pain G89.29 ; Anxiety F41.9 ; Chronic tension headaches G44.229 and Cough R05 [id number] [place] [address] 96826- 4282 Jan, [address] 55450- 0053 Jan, [id number] [place] [address] 26437- 2237 Jan, Post-traumatic stress disorder, unspecified F43.10 ; Obesity E66.9 ; Sleep apnea, obstructive G47.33 and Open-angle glaucoma of both eyes H40.10X0 [id number]- 9772 Jan, [address]- 9744 Jan, Post-traumatic stress disorder, unspecified F43.10 and Major depressive disorder, recurrent, moderate F33.1 [address] 88045- 3315 Dec, [address]8865- 6362 Dec, Sleep apnea, obstructive G47.33 ; Obesity E66.9 ; Hyperlipidemia E78.5 ; Glaucoma H40.9 ; Chronic pain G89.29 ; HTN (hypertension ) I10 ; Blindness and low vision H54.10 ; Anxiety F41.9 and CAD (coronary artery disease) I25.10 [address] [address] 12860- 4261 Nov, [address] 771709- [address] Nov, [address] 71993- 0831 Nov, [address] 60410- 6250 Nov, [address] 18300- 4862 Nov, [address] 37830- 2840 Nov, Encounter for immunization Z23 ; Sleep apnea, obstructive G47.33 ; Obesity E66.9 ; Hyperlipidemia E78.5 ; Glaucoma H40.9 ; Chronic pain G89.29 ; Anxiety F41.9 ; Chronic tension headaches G44.229 and HTN (hypertension ) I10 [facility] [address], [place] [address]- 1858 Nov, [facility] [id number] [place] [address] 40497- 7487 Nov, [facility] [id number] [place] [address] 40487- 7766 Nov, Dizziness R42 [facility] [id number] [place] [address] 97454- 1099 Nov, [facility] [id number] [place] [address] 97396- 3230 Oct, [facility] [id number] [place] [address] 51947- 5519 Oct, [facility] [id number] [place] [address] 70940- 6983 Oct, [facility] [id number] [place] [address] 15720- 4787 Oct, [facility] [id number] [place] [address] 14822- 1475 Oct, Dizziness 780.4 ; Essential hypertension 401.9 ; Obesity 278.00 ; Hyperlipidemia 272.4 ; Chronic pain 338.29 ; Glaucoma 365.9 and Anxiety 300.00 [facility] [id number] [place] [address] 92647- 8015 Oct, Essential hypertension 401.9 ; Hyperlipidemia 272.4 ; Glaucoma 365.9 ; Obesity 278.00 ; Chronic pain 338.29 and Allergy to insects V15.06 [facility] [id number] [place] [address] 61921- 4417 Sep, [facility] [id number] [place] [address] 52431- 4960 Sep, [facility] [id number] [place] [address] 82008- 0244 Sep, [facility] [address] [facility] [id number] [place] [address]- 7632 Sep, [facility] [address] [facility] [id number] [place] [id number]81 Aug, Essential hypertension 401.9 ; Obesity 278.00 ; Hyperlipidemia 272.4 ; Glaucoma 365.9 ; Lipoma 214.9 ; Mitral valve prolapse 424.0 ; Angina at rest 413.9 ; Lymphedema 457.1 and Chronic pain 338.29 IMMUNIZATIONS No Known Immunizations SOCIAL HISTORY Never Assessed REASON FOR VISIT intake PLAN OF CARE Activity Details Follow Up 2 Weeks, 1 hour Reason: VITAL SIGNS MEDICATIONS Unknown Medications RESULTS No Results PROCEDURES Procedure Date Ordered Result Body Site Psychotherapy, patient &/family, 45 minutes, established patient Mar 16, 2017 INSTRUCTIONS MEDICATIONS ADMINISTERED No Known Medications [...]
--- OUTSIDE RECORDS SUMMARY | 2018-02-04 15:05 | XMS REPORT | Continuity of Care Document ---
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 Name Role Phone KIMBERLY KNIGHT DO PCP Insurance Providers Payer Name Policy Number Subscriber Name [facility] [id number] Gama Velásquez Jr 18 Self / Same As Patient Advance Directives Directive Response Recorded Date/Time Advance Directives No 08/31/14 4:19pm Problems Active Problems Medical Problem Onset Date Status Cellulitis of left thigh Unknown Acute Cellulitis of left thigh Unknown Acute Drug-seeking behavior Unknown Acute Drug-seeking behavior Unknown Acute Postoperative pain Unknown Acute Postoperative pain Unknown Acute Medications Current Home Medications Medication Dose Units Route Directions Days/Qty Instructions Start Date Trimethoprim/Sulfamethoxazole 1 Ea 1 Tab Oral Twice A Day 08/18/14 Doxycycline Monohydrate 100 Mg 100 Mg Oral Twice A Day 08/18/14 Tramadol Hcl 50 Mg 50 Mg Oral Every 4HRS as needed for Pain Hydrocodone Bit/Acetaminophen 1 Each 1 Ea Oral Every 6 Hours as needed for Severe Pain 08/24/14 Social History Social History Problem Response Recorded Date/Time Alcohol Use Denies Use 08/31/2014 4:19pm Recreational Drug Use No 08/31/2014 4:19pm Hospital Discharge Instructions No hospital discharge instructions. Plan of Care Discharge Date 12/09/14 5:24am Prescriptions See Medication Section Functional Status No functional status results. Allergies, Adverse Reactions, Alerts Allergen Type Severity Reaction Status Last Updated Penicillins ([id number]) Allergy Unknown Active 07/19/14 Aspirin Allergy Unknown Active 07/19/14 Immunizations No immunization records. Vital Signs No known vital signs results. Results No known relevant diagnostic tests, laboratory data and/or discharge summary. Procedures No known history of procedures. Encounters Encounter Location Arrival/Admit Date Discharge/Depart Date Attending Provider Registered Clinic [facility] 12/08/14 8:41pm ABHISHEK PARISH APRN Registered Clinic [facility] 11/12/14 4:10pm EDUIN CARDONA
--- OUTSIDE RECORDS SUMMARY | 2018-02-04 15:05 | XMS REPORT | Continuity of Care Document ---
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 Plan of Care Discharge Date 11/08/14 6:06am Prescriptions See Medication Section Functional Status No functional status results. Allergies, Adverse Reactions, Alerts Allergen Type Severity Reaction Status Last Updated Penicillins ([id number]) Allergy Unknown Active 07/19/14 Aspirin Allergy Unknown Active 07/19/14 Immunizations No immunization records. Vital Signs No known vital signs results. Results No known relevant diagnostic tests, laboratory data and/or discharge summary. Procedures No known history of procedures. Encounters Encounter Location Arrival/Admit Date Discharge/Depart Date Attending Provider Registered Clinic [facility] 11/07/14 8:53pm EDUIN CARDONA Registered Clinic [facility] 10/11/14 1:04pm GENIA MONTANEZ DO
--- OUTSIDE RECORDS SUMMARY | 2018-02-04 15:06 | XMS REPORT ---
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 Name Role Phone EDUIN Ramos Unavailable PROBLEMS Type Condition ICD9-CM Code ZOR24-UU Code Onset Dates Condition Status SNOMED Code Problem Environmental allergies Z91.09 Active 310952169 Problem Primary insomnia F51.01 Active 3015256 Problem Arrhythmia as indication for cardiac pacemaker replacement I49.9 Active 78669798 Problem Chronic pain syndrome G89.4 Active 018419390 Problem Sleep apnea, obstructive G47.33 Active 12478115 Problem Migraine without aura and without status migrainosus, not intractable G43.009 Active 359962411 Problem Hyperlipidemia E78.5 Active 44077243 Problem Myocarditis, unspecified chronicity, 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 Active 92886843 Problem Other male erectile dysfunction N52.8 Active 398546500 Problem Morbid (severe) obesity due to excess calories E66.01 Active 096887998 Problem 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 Active 475993607 Problem Body mass index (BMI) of 40.0-44.9 in adult Z68.41 Active 824701605 Problem Blindness and low vision H54.10 Active 344797390 Problem Chronic tension headaches G44.229 Active 953159906 Problem Chronic pain G89.29 Active 28924456 Problem HTN (hypertension) I10 Active 65124372 Problem Open-angle glaucoma of both eyes H40.10X0 Active 16277273 Problem Mitral valve prolapse I34.1 Active 949110823 Problem Anxiety F41.9 Active 34660035 Problem CAD (coronary artery disease) I25.10 Active 39420847 Problem Major depressive disorder, recurrent, moderate F33.1 Active 13619579 Problem Post-traumatic stress disorder, chronic F43.12 Active 585419272 ALLERGIES No Information ENCOUNTERS Encounter Location Date Diagnosis [facility] [address] [facility] [id number] [place] [address] 18572- 9639 Jul, [place] [address] [place] [id number] [place] [address] 50191- 0610 May, [place] [address] 38345- 9013 May, Chronic pain G89.29 ; Anxiety F41.9 and Chest pain, unspecified type R07.9 [place] [address] 14637- 2623 Apr, [place] [address] [place] [id number] [place] [address] 58076- 2316 29 Apr, 2017 Left leg pain M79.605 [place] [address] [place] [address] [id number] [place] [address] 83274- 9063 27 Apr, 2017 Post-traumatic stress disorder, unspecified F43.10 ; Problems related to release from custodial Z65.2 ; Anxiety F41.9 and BMI 40.0-44.9 , adult Z68.41 [place] [address] [place] [id number] [place] [address] 68238- 0221 22 Apr, 2017 [place] [address] [place] [address] [id number] [place] [address] 04283- 9203 19 Apr, 2017 Left leg pain M79.605 [place] [address] [place] [id number] [place] [address] 77171- 0067 13 Apr, 2017 Post-traumatic stress disorder, unspecified F43.10 ; Major depressive disorder, recurrent, moderate F33.1 and Problems related to release from custodial Z65.2 [place] [address] [id number] [place] [address] 13811- 3567 Apr, [place] [address] 19709- 7973 Apr, Chronic pain G89.29 ; 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 ; Morbid (severe) obesity due to excess calories E66.01 ; Anxiety F41.9 and BMI 40.0-44.9, adult Z68.41 [facility] [address] [id number] [place] [address] 65623 -4774 Apr, Sore throat J02.9 and BMI 40.0-44.9, adult Z68.41 [facility] [address] 08029- 6697 02 Apr, 2017 Left leg pain M79.605 [facility] [address] [id number] Mar, Dental examination Z01.20 [place] [address] 49012- 1021 Mar, [facility] [address] 57078 -7612 Mar, Cough R05 ; Viral gastroenteritis A08.4 and BMI 40.0-44.9, adult Z68.41 [place] [address] 23243- 5516 Mar, Left leg pain M79.605 [place] [address] 13515- 5366 Mar, Post-traumatic stress disorder, unspecified F43.10 ; Major depressive disorder, recurrent, moderate F33.1 and Problems related to release from custodial Z65.2 [place] [address] 86356- 0552 Feb, Left leg pain M79.605 [facility] [address] 50361- 0260 Feb, [place] [address] 96633- 1550 Feb, BMI 40.0-44.9, adult Z68.41 ; Chronic pain syndrome G89.4 ; Migraine without aura and without status migrainosus, not intractable G43.009 ; Mitral valve prolapse I34.1 and 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 [place] [address] [address] 3[address] Feb, Post-traumatic stress disorder, chronic F43.12 ; Anxiety F41.9 ; Problems related to release from custodial Z65.2 and BMI 40.0-44.9, adult Z68.41 [facility] [id number] [place] [address] 74362- 0696 Feb, Post-traumatic stress disorder, unspecified F43.10 ; Major depressive disorder, recurrent, moderate F33.1 and Problems related to release from custodial Z65.2 [facility] [id number] [place] [address] 17550- 8683 Feb, Left leg pain M79.605 [place] [address] [id number] [place] [address] 38652- 9832 Jan, Post-traumatic stress disorder, unspecified F43.10 ; Major depressive disorder, recurrent, moderate F33.1 and Problems related to release from custodial Z65.2 [place] [address] [place] [address] [id number] [place] [address] 51098- 8534 Jan, [place] [address] [id number] [place] [address] 92890- 1695 Jan, [place] [id number] [place] [address] 89278- 0813 Jan, Anxiety F41.9 [place] [id number] [place] [address] 57711- 6871 Jan, Left leg pain M79.605 [facility] [id number] [place] [address] 50774- 5029 Dec, Left leg pain M79.605 [facility] [address] [id number] [place] [address] 90642- 4436 Dec, [place] [address] [address] [id number] [place] [address] 90058- 1506 Dec, Post-traumatic stress disorder, unspecified F43.10 ; Major depressive disorder, recurrent, moderate F33.1 and Problems related to release from custodial Z65.2 [place] [address] 14272- 8709 31 Nov, 2016 Chronic pain G89.29 and Anxiety F41.9 [place] [address] 80706- 8461 24 Nov, 2016 Chronic pain G89.29 and Anxiety F41.9 [place] [address] 46681- 4918 16 Nov, 2016 Post-traumatic stress disorder, unspecified F43.10 ; Major depressive disorder, recurrent, moderate F33.1 and Problems related to release from custodial Z65.2 [place] [address] 65915- 2920 09 Nov, 2016 Other abnormal findings in specimens from other organs, systems and tissues R89.8 ; Other male erectile dysfunction N52.8 ; Body mass index (BMI) of 40.0-44.9 in adult Z68.41 and Morbid (severe) obesity due to excess calories E66.[address] 46619- 3875 02 Nov, 2016 Post-traumatic stress disorder, unspecified F43.10 ; Major depressive disorder, recurrent, moderate F33.1 and Problems related to release from custodial Z65.2 [facility] [address] [id number] Oct, Dental examination Z01.20 [place] [address] [place] [address] [id number] [place] [address] 58337- 4733 Oct, [address] 66586- 1822 Oct, Encounter for immunization Z23 [place] [address] 34433- 1593 26 Oct, 2016 Chronic pain G89.29 ; Anxiety F41.9 ; Arrhythmia as indication for cardiac pacemaker replacement I49.9 and Glaucoma H40.9 [place] [address] [address] 8025 Oct, Anxiety F41.9 ; Post-traumatic stress disorder, chronic F43.12 and Problems related to release from custodial Z65.2 [place] [address] [id number] [place] [address] 35766- 7873 Oct, Post-traumatic stress disorder, unspecified F43.10 ; Major depressive disorder, recurrent, moderate F33.1 and Problems related to release from custodial Z65.2 [place] [address] [id number] [place] [address] 79862- 4146 Sep, Chronic pain G89.29 and Anxiety F41.9 [place] [address] [place] [address] [id number] [place] [address] 01958- 8983 Sep, Post-traumatic stress disorder, unspecified F43.10 ; Major depressive disorder, recurrent, moderate F33.1 and Problems related to release from custodial Z65.2 [place] [address] [place] [address] [id number] [place] [address] 15056- 4204 Sep, Post-traumatic stress disorder, unspecified F43.10 ; Major depressive disorder, recurrent, moderate F33.1 and Problems related to release from custodial Z65.2 [place] [address] [place] [address] 29987- 8522 Sep, Chronic pain G89.29 [place] [address] [place] [address] [id number] [place] [address] 44141- 6441 Aug, Dental caries, unspecified K02.9 [place] [address] [place] [address] 96711- 9990 Aug, Sleep apnea, obstructive G47.33 ; Obesity E66.9 ; Chronic pain G89.29 ; HTN (hypertension) I10 ; Major depressive disorder, recurrent, moderate F33.1 ; Anxiety F41.9 ; Chronic tension headaches G44.229 ; Mitral valve prolapse I34.1 ; Arrhythmia as indication for cardiac pacemaker replacement I49.9 ; Dental caries, unspecified K02.9 ; Primary insomnia F51.01 and Hyperlipidemia E78.5 [facility] [address] [id number] [place] [address] 58371- 0997 Aug, Post-traumatic stress disorder, unspecified F43.10 ; Major depressive disorder, recurrent, moderate F33.1 and Problems related to release from custodial Z65.2 [facility] [address] [place] [address] [id number] [place] [address] 30450- 1174 Aug, Dental examination Z01.20 [facility] [id number] [place] [address] [id number] 13 Aug, 2016 Dental examination Z01.20 [facility] [address] 31889- 1881 06 Aug, 2016 Post-traumatic stress disorder, unspecified F43.10 ; Major depressive disorder, recurrent, moderate F33.1 and Problems related to release from custodial Z65.2 [place] [id number] [place] [address] 57561- 8460 Aug, Chronic pain G89.29 and Primary insomnia F51.01 [place] [address] [place] [address] [id number] [place] [address] 57603- 6165 Jul, [place] [address] [place] [address] [id number] [place] [address] 11905- 3320 Jul, [place] [address] [place] [address] [id number] [place] [address] 53488- 3910 Jul, Nausea R11.0 [place] [address] [place] [address] [id number] [place] [address] 92057- 9149 Jul, Arrhythmia as indication for cardiac pacemaker replacement I49.9 [place] [address] [address] [id number] [place] [address] 76214- 4836 Jul, Post-traumatic stress disorder, unspecified F43.10 ; Major depressive disorder, recurrent, moderate F33.1 and Problems related to release from custodial Z65.2 [place] [id number] [place] [address] 21153- 0307 09 Jul, 2016 Anxiety F41.9 [place] [address] [place] [address] [id number] [place] [address] 48873- 7275 08 Jul, 2016 Chronic pain G89.29 [place] [address] [place] [address] [id number] [place] [address] 71600- 5947 Jul, Sleep apnea, obstructive G47.33 ; Hyperlipidemia E78.5 ; Chronic pain G89.29 ; Blindness and low vision H54.10 ; Major depressive disorder, recurrent, moderate F33.1 ; Anxiety F41.9 ; Mitral valve prolapse I34.1 ; Arrhythmia as indication for cardiac pacemaker replacement I49.9 ; Primary insomnia F51.01 ; Bilateral headaches R51 and Environmental allergies Z91.09 [place] [address] [place] [address] [id number] [place] [address] 91780- 6891 Jul, Post-traumatic stress disorder, unspecified F43.10 ; Major depressive disorder, recurrent, moderate F33.1 and Problems related to release from custodial Z65.2 [place] [address] [place] [address] [id number] [place] [address] 69799- 5540 June, Post-traumatic stress disorder, chronic F43.12 ; Anxiety F41.9 ; Problems related to release from custodial Z65.2 ; Sleep apnea, obstructive G47.33 and Primary insomnia F51.01 [place] [address] [address]- 9181 June, [place] [address] [place] [address] [id number] [place] [address] 39386- 4116 June, [place] [address] [place] [address] [id number] [place] [address] 97261- 6854 June, [place] [address] [place] [address] [id number] [place] [address] 65295- 5902 June, Chronic pain G89.29 [place] [id number] [address]- 8817 June, Chronic pain G89.29 [place] [address] [place] [place] [address]- 7713 June, Lipoma of left lower extremity D17.24 ; Open wound T14.8 and Swelling of left lower extremity M79.89 [place] [address] 31282- 6408 June, Post-traumatic stress disorder, unspecified F43.10 ; Major depressive disorder, recurrent, moderate F33.1 and Problems related to release from custodial Z65.2 [place] [address] [place] [address] [id number] [place] [address] 14079- 2477 May, Lipoma of left lower extremity D17.24 ; Major depressive disorder, recurrent, moderate F33.1 ; Sleep apnea, obstructive G47.33 ; Hyperlipidemia E78.5 ; Obesity E66.9 ; HTN (hypertension) I10 ; Glaucoma H40.9 ; CAD (coronary artery disease) I25.10 ; Chronic tension headaches G44.229 ; Chronic pain G89.29 ; Anxiety F41.9 ; Nausea R11.0 and Primary insomnia F51.01 [place] [address] [place] [id number] [place] [address] 29800- 6435 May, [place] [address] 27600- 6793 May, Chronic pain G89.29 [place] [address] 71436- 3176 May, [place] [address] [place] [address] [id number] [place] [address] 73163- 9329 Apr, Post-traumatic stress disorder, unspecified F43.10 ; Major depressive disorder, recurrent, moderate F33.1 and Problems related to release from custodial Z65.2 [place] [address] [address] [id number] [place] [address] 43196- 9063 Apr, Primary insomnia F51.01 ; Post-traumatic stress disorder, chronic F43.12 and Problems related to release from custodial Z65.2 [place] [address] 97903- 2560 17 Apr, 2016 Post-traumatic stress disorder, unspecified F43.10 ; Major depressive disorder, recurrent, moderate F33.1 and Problems related to release from custodial Z65.2 [place] [id number] [place] [address] 04842- 6064 16 Apr, 2016 [place] [address] [address] [id number] [place] [address] 37171- 3250 16 Apr, 2016 Sleep apnea, obstructive G47.33 ; Chronic pain G89.29 ; HTN (hypertension) I10 ; Mitral valve prolapse I34.1 ; Shoulder pain, left M25.512 ; Arrhythmia as indication for cardiac pacemaker replacement I49.9 ; Glaucoma H40.9 ; Bilateral headaches R51 ; Environmental allergies Z91.09 ; Primary insomnia F51.01 and Nausea R11.0 [place] [id number] [place] [address] 22298- 0851 15 Apr, 2016 [place] [id number] [place] [address] 70688- 2830 Apr, [place] [address] [place] [id number] [place] [address] 29979- 1941 Apr, Post-traumatic stress disorder, unspecified F43.10 ; Major depressive disorder, recurrent, moderate F33.1 and Problems related to release from custodial Z65.2 [place] [address], [place] [address]- 2463 07 Apr, 2016 HTN (hypertension) I10 [place] [address] [id number] [place] [address] 31352- 4828 07 Apr, 2016 HTN (hypertension) I10 [place] [address] [place] [address] [id number] [place] [address] 41936- 1520 14 Mar, 2016 Chronic pain G89.29 ; Primary insomnia F51.01 and Problems related to release from custodial Z65.2 [place] [address] [id number] [place] [address] 91504- 1633 07 Mar, 2016 Post-traumatic stress disorder, unspecified F43.10 ; Major depressive disorder, recurrent, moderate F33.1 and Problems related to release from custodial Z65.2 [place] [address] [place] [address] 98994- 7197 Feb, Post-traumatic stress disorder, unspecified F43.10 ; Major depressive disorder, recurrent, moderate F33.1 and Problems related to release from custodial Z65.2 [place] [address] [place] [address] [id number] [place] [address] 54956- 1586 Feb, Chronic tension headaches G44.229 [place] [address] [place] [address] [id number] [place] [address] 65271- 0278 17 Feb, 2016 Sleep apnea, obstructive G47.33 [...] pacemaker replacement I49.9 and Primary insomnia F51.01 [place] [id number] [place] [address] 97801- 7967 Feb, Post-traumatic stress disorder, unspecified F43.10 and Chronic pain G89.29 [address] [place] [address] 33333- 8893 Feb, [facility] [address] [place] [address] [id number] Feb, Dental caries K02.9 [place] [address] [place] [address] 29400- 9031 Feb, [place] [address] [place] [address] [id number] [place] [address] 28548- 2647 Feb, Post-traumatic stress disorder, unspecified F43.10 ; Major depressive disorder, recurrent, moderate F33.1 and Problems related to release from custodial Z65.2 [place] [address], [place] [address]- 7984 Jan, Sleep apnea, obstructive G47.33 and Chronic pain G89.29 [place] [address] [place] [address] [id number] [place] [address] 01514- 6446 Jan, [place] [address] [place] [address] [id number] [place] [address] 49065- 0026 14 Jan, 2016 Dental examination Z01.20 [place] [address] [place] [address] [id number] [place] [address] 78869- 4121 09 Jan, 2016 [place] [address] [place] [id number] [place] [address] 45431- 9610 Jan, [place] [address] [place] [address] [id number] [place] [address] 82109- 9593 29 Dec, 2015 Post-traumatic stress disorder, unspecified F43.10 ; Major depressive disorder, recurrent, moderate F33.1 and Problems related to release from custodial Z65.2 [place] [id number] [place] [address] 11198- 2889 29 Dec, 2015 Encounter for immunization Z23 ; Problems related to release from custodial Z65.2 ; Sleep apnea, obstructive G47.33 and Post-traumatic stress disorder, chronic F43.[address] [place] [address] 20286- 4108 18 Dec, 2015 Sleep apnea, obstructive G47.33 ; Hyperlipidemia E78.5 ; Chronic pain G89.29 ; Glaucoma H40.9 ; HTN (hypertension) I10 ; Post-traumatic stress disorder, unspecified F43.10 ; Anxiety F41.9 ; Chronic tension headaches G44.229 ; Mitral valve prolapse I34.1 and CAD (coronary artery disease) I25.10 [place] [id number] [place] [address] 28684- 7994 15 Dec, 2015 Post-traumatic stress disorder, unspecified F43.10 ; Major depressive disorder, recurrent, moderate F33.1 and Problems related to release from custodial Z65.2 [place] [address] [address]- 7217 Nov, Chronic pain G89.29 [place] [address] [place] [id number] [place] [address] 08340- 3365 Nov, Post-traumatic stress disorder, unspecified F43.10 ; Major depressive disorder, recurrent, moderate F33.1 and Problems related to release from custodial Z65.2 [place] [address] [place] [id number] [place] [address] 91498- 1299 Oct, [place] [address] [id number] [place] [address] 37424- 6357 Oct, [place] [id number] [place] [address] 85635- 9934 Oct, Post-traumatic stress disorder, unspecified F43.10 ; Major depressive disorder, recurrent, moderate F33.1 and Problems related to release from custodial Z65.2 [place] [id number] [place] [address] 97720- 6902 08 Oct, 2015 [place] [address] [id number] [place] [address] 39841- 5630 07 Oct, 2015 Environmental allergies Z91.09 ; Cough R05 and Open-angle glaucoma of both eyes H40.10X0 [place] [id number] [place] [address] 39603- 9108 Sep, [place] [id number] [place] [address] 86075- 0566 Sep, Post-traumatic stress disorder, unspecified F43.10 ; Major depressive disorder, recurrent, moderate F33.1 and Problems related to release from custodial Z65.2 [place] [id number] [place] [address] 60046- 5306 Sep, Chronic pain G89.29 [place] [address] [place] [address] 97418- 1632 Sep, Pain in left shoulder M25.512 ; Pain in right shoulder M25.511 and Other chronic pain G89.29 [facility] [address], [place] [address]- 1602 Sep, [facility] [id number] [place] [address] 87790- 5911 Sep, [facility] [id number] [place] [address] 15838- 5966 Sep, [facility] [id number] [place] [address] [id number] Aug, Dental examination Z01.20 [facility] [id number] [place] [address] 96728- 2279 Aug, Post-traumatic stress disorder, unspecified F43.10 ; Open- angle glaucoma of both eyes H40.10X0 and Problems related to release from custodial Z65.2 [facility] [id number] [place] [address] 15919- 8511 Aug, [facility] [id number] [place] [address] 39640- 3037 Aug, Sleep apnea, obstructive G47.33 ; Obesity E66.9 ; Hyperlipidemia E78.5 ; Bilateral headaches R51 ; HTN (hypertension) I10 ; Post- traumatic stress disorder, unspecified F43.10 ; Anxiety F41.9 ; Neuropathy G62.9 ; Glaucoma H40.9 and Chronic pain G89.29 [facility] [address] [place] [address] [id number] Aug, Encounter for dental examination Z01.20 [facility] [address] [place] [address] 19859- 5362 Aug, Post-traumatic stress disorder, unspecified F43.10 ; Major depressive disorder, recurrent, moderate F33.1 and Problems related to release from custodial Z65.2 [facility] [address] [place] [address] 50161- 7325 Aug, [facility] [id number] [place] [address] 82351- 8581 Jul, [facility] [address], [place] [address]- 7675 Jul, Post-traumatic stress disorder, unspecified F43.10 and Major depressive disorder, recurrent, moderate F33.1 [facility] [address], [place] [address]- 3769 Jul, [facility] [id number] [place] [address] 15594- 1591 Jul, [facility] [id number], [place] [address] Jul, Chronic pain G89.29 [facility] [id number] [place] [id number] June, Post-traumatic stress disorder, unspecified F43.10 and Major depressive disorder, recurrent, moderate F33.1 [facility] [id number], [place] [address] June, [facility] [id number] [place] [address] June, Chronic pain G89.29 [facility] [address] [id number] [place] [address]15- [address]25 June, Post-traumatic stress disorder, unspecified F43.10 and Major depressive disorder, recurrent, moderate F33.1 [facility] [address], [place] [address] May, Post-traumatic stress disorder, unspecified F43.10 and Major depressive disorder, recurrent, moderate F33.1 [facility] [address], [place] [address] May, [facility] [id number], [place] [address] May, [facility] [address], [place] [address] May, [facility] [id number] [place] [address] 61985- 4011 Apr, [facility] [id number] [place] [address] 36422- 0027 Apr, Post-traumatic stress disorder, unspecified F43.10 and Sleep apnea, obstructive G47.33 [facility] [id number] [place] [address] 66013- 5517 Apr, [facility] [id number] [place] [address] 99163- 9706 Apr, Shoulder pain, left M25.512 [facility] [id number] [place] [address] 24319- 0095 Apr, Post-traumatic stress disorder, unspecified F43.10 and Major depressive disorder, recurrent, moderate F33.1 [place] [id number] [place] [address] 17089- 6222 Apr, [facility] [id number] [place] [address] 37409- 7151 Apr, [facility] [id number] [place] [address] 46868- 1224 08 Apr, 2015 [facility] [id number] [place] [address] 73708- 5186 Apr, Left shoulder pain M25.512 [facility] [id number] [place] [address] 11040- 5594 Mar, [facility] [id number] [place] [address] 31430- 8940 Mar, [facility] [id number] [place] [address] 27400- 4939 18 Mar, 2015 [facility] [id number] [place] [address] 758207- 7211 Mar, Sleep apnea, obstructive G47.33 ; Obesity E66.9 ; Chronic pain G89.29 ; Hyperlipidemia E78.5 ; HTN (hypertension) I10 ; Blindness and low vision H54.10 ; Major depressive disorder, recurrent, moderate F33.1 and Anxiety F41.9 [place] [id number] [place] [address] 84507- 1762 Mar, [place] [id number] [place] [address] 09399- 5853 Mar, Post-traumatic stress disorder, unspecified F43.10 and Major depressive disorder, recurrent, moderate F33.1 [place] [id number] [place] [address] 32685- 6533 Mar, [address] 116262- 9357 04 Mar, 2015 HTN (hypertension) I10 ; Blindness and low vision H54.10 ; Obesity E66.9 ; Hyperlipidemia E78.5 ; Glaucoma H40.9 ; Chronic pain G89.29 and CAD (coronary artery disease) I25.10 [place] [id number] [place] [address] 69821- 7778 Feb, [place] [id number] [place] [address] 99068- 3285 Feb, Post-traumatic stress disorder, unspecified F43.10 ; Obesity E66.9 ; Sleep apnea, obstructive G47.33 and Open-angle glaucoma of both eyes H40.10X0 [place] [id number] [place] [address] 25885- 1412 Feb, Post-traumatic stress disorder, unspecified F43.10 and Major depressive disorder, recurrent, moderate F33.1 [place] [id number] [place] [address] 88471- 9277 Feb, [place] [id number] [place] [address] 95046- 6111 Feb, [place] [id number] [place] [address] 06322- 6345 Feb, HTN (hypertension) I10 ; Post-traumatic stress disorder, unspecified F43.10 ; Blindness and low vision H54.10 ; Obesity E66.9 ; Hyperlipidemia E78.5 ; Chronic pain G89.29 ; Glaucoma H40.9 ; Mitral valve prolapse I34.1 and Bilateral headaches R51 [place] [address] 6[address]- 9977 Feb, [place] [address] 815901- 0468 Feb, Post-traumatic stress disorder, unspecified F43.10 and Major depressive disorder, recurrent, moderate F33.[address] [address]- [address]25 Feb, [address] 80650- 5090 Feb, [address] 6[address]90- 8115 Jan, [place] [address] [address]- 4949 Jan, [address] 6[address]43- 4770 Jan, Obesity E66.9 ; HTN (hypertension) I10 ; Blindness and low vision H54.10 ; Major depressive disorder, recurrent, moderate F33.1 ; Glaucoma H40.9 ; Hyperlipidemia E78.5 ; Sleep apnea, obstructive G47.33 ; Chronic pain G89.29 ; Anxiety F41.9 ; Chronic tension headaches G44.229 and Cough R[address] [address]- [address]281 Jan, [address] 8[address]26- 8303 Jan, [address] 57342- 2429 Jan, Post-traumatic stress disorder, unspecified F43.10 ; Obesity E66.9 ; Sleep apnea, obstructive G47.33 and Open-angle glaucoma of both eyes H40.10X0 [place] [address] [place] [address] [id number]- 8244 Jan, [place] [address] [place] 963147- 7452 Jan, Post-traumatic stress disorder, unspecified F43.10 and Major depressive disorder, recurrent, moderate F33.1 [place] [address] [address]- 1984 Dec, [place] [address]43- 6789 Dec, Sleep apnea, obstructive G47.33 ; Obesity E66.9 ; Hyperlipidemia E78.5 ; Glaucoma H40.9 ; Chronic pain G89.29 ; HTN (hypertension ) I10 ; Blindness and low vision H54.10 ; Anxiety F41.9 and CAD (coronary artery disease) I25.10 [place] [address] 97[address]- 6506 Nov, [place] [id number]- 0206 Nov, [place] [address] 95992- 4227 Nov, [place] [address] 34418- 9720 Nov, [place] [address] 14907- 9740 Nov, [place] [id number]- 5673 Nov, Encounter for immunization Z23 ; Sleep apnea, obstructive G47.33 ; Obesity E66.9 ; Hyperlipidemia E78.5 ; Glaucoma H40.9 ; Chronic pain G89.29 ; Anxiety F41.9 ; Chronic tension headaches G44.229 and HTN (hypertension ) I10 [facility] [address], [place] [address]- [address]85 Nov, [facility] [id number] [place] [address] 25923- 9364 Nov, [facility] [id number] [place] [address] 35154- 6049 Nov, Dizziness R42 [facility] [id number] [place] [address] 36104- 3967 Nov, [facility] [id number] [place] [address] 10812- 4883 Oct, [facility] [id number] [place] [address] 88753- 2346 Oct, [facility] [id number] [place] [address] 61828- 8055 Oct, [facility] [id number] [place] [address] 42754- 6385 Oct, [facility] [id number] [place] [address] 68021- 6127 Oct, Dizziness 780.4 ; Essential hypertension 401.9 ; Obesity 278.00 ; Hyperlipidemia 272.4 ; Chronic pain 338.29 ; Glaucoma 365.9 and Anxiety 300.00 [facility] [id number] [place] [address] 80864- 5577 Oct, Essential hypertension 401.9 ; Hyperlipidemia 272.4 ; Glaucoma 365.9 ; Obesity 278.00 ; Chronic pain 338.29 and Allergy to insects V15.06 [facility] [id number] [place] [address] 13095- 6961 Sep, [facility] [id number] [place] [address] 15013- 6085 Sep, [facility] [id number] [place] [address] 19775- 0123 Sep, [facility] [address] [facility] [id number] [place] [address]- 5294 Sep, [facility] [address] [facility] [id number] [place] [address]- 0[address] Aug, Essential hypertension 401.9 ; Obesity 278.00 ; Hyperlipidemia 272.4 ; Glaucoma 365.9 ; Lipoma 214.9 ; Mitral valve prolapse 424.0 ; Angina at rest 413.9 ; Lymphedema 457.1 and Chronic pain 338.29 IMMUNIZATIONS No Known Immunizations SOCIAL HISTORY Never Assessed REASON FOR VISIT Hydrocodone- 09/11 PLAN OF CARE VITAL SIGNS MEDICATIONS Medication Instructions Dosage Frequency Start Date End Date Duration Status Hydrocodone-Acetaminophen 7.5-325 MG Orally 4 times a day 1 tablet 6h Sep, Oct, 28 days Active RESULTS No Results PROCEDURES [...]
--- OUTSIDE RECORDS SUMMARY | 2018-02-04 15:06 | XMS REPORT ---
Author Author KODAK YBARRA Organization [facility] Address [address] [place] [address] Care Team Providers Care Winch Driver Name Role Phone KODAK YBARRA Unavailable PROBLEMS Type Condition ICD9-CM Code [id number] Code Onset Dates Condition Status SNOMED Code Problem Arrhythmia as indication for cardiac pacemaker replacement I49.9 Active 07972153 Problem Body mass index (BMI) of 40.0-44.9 in adult Z68.41 Active 231137396 Problem Primary insomnia F51.01 Active 1394282 Problem Sarcoidosis D86.9 Active 31501243 Problem Chronic pain G89.29 Active 45217836 Problem Chronic pain syndrome G89.4 Active 025867920 Problem Sleep apnea, obstructive G47.33 Active 23895355 Problem Hyperlipidemia E78.5 Active 43692585 Problem Other male erectile dysfunction N52.8 Active 029183558 Problem Morbid (severe) obesity due to excess calories E66.01 Active 161472167 Problem Migraine without aura and without status migrainosus, not intractable G43.009 Active 026734892 Problem 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 Active 098886264 Problem Chronic tension headaches G44.229 Active 595662017 Problem Anxiety F41.9 Active 48157660 Problem HTN (hypertension) I10 Active 06595598 Problem Blindness and low vision H54.10 Active 753073866 Problem Mitral valve prolapse I34.1 Active 990210180 Problem CAD (coronary artery disease) I25.10 Active 78951393 Problem Major depressive disorder, recurrent, moderate F33.1 Active 13969965 Problem Post-traumatic stress disorder, chronic F43.12 Active 197518221 Problem Myocarditis, unspecified chronicity, 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 Active 54251579 Problem Open-angle glaucoma of both eyes H40.10X0 Active 55382714 Problem Environmental allergies Z91.09 Active 736522276 ALLERGIES No Information ENCOUNTERS Encounter Location Date Diagnosis [facility] [id number] [address] Jul, [facility] [address] [address] Jul, [facility] [address] [address] June, [facility] [id number] [address] June, [facility] [id number] [place] [address] 12994- 3611 June, [facility] [id number] [place] [address] 39990- 2758 June, Left leg pain M79.605 [facility] [id number] [place] [address] 74535- 8989 June, Sarcoidosis D86.9 [facility] [id number] [place] [address] 42850- 5561 June, [facility] [address], [place] [address] June, [facility] [id number] [place] [address] 84295- 7781 June, Left leg pain M79.605 [facility] [address], [place] [address] 8[address] May, [facility] [address], [place] [address] 7685 May, [facility] [address], [place] [address] 5564 May, [facility] [id number] [address] May, Left leg pain M79.605 [facility] [address], [place] [address] May, Post-traumatic stress disorder, unspecified F43.10 ; Major depressive disorder, recurrent, moderate F33.1 and Problems related to release from senior care Z65.2 [facility] [id number] [place] [address] 72668- 6043 May, Chronic pain G89.29 ; Anxiety F41.9 and Chest pain, unspecified type R07.9 [facility] [facility] [address] 35126- 5519 30 Apr, 2017 [facility] [id number] [place] [address] 68800- 1852 29 Apr, 2017 Left leg pain M79.605 [address] [address] 99992- 2918 27 Apr, 2017 Post-traumatic stress disorder, unspecified F43.10 ; Problems related to release from senior care Z65.2 ; Anxiety F41.9 and BMI 40.0-44.9 , adult Z68.41 [facility] [id number] [place] [address] 85662- 9339 Apr, [facility] [id number] [place] [address] 79286- 5149 Apr, Left leg pain M79.605 [facility] [id number] [place] [address] 64373- 6478 Apr, Post-traumatic stress disorder, unspecified F43.10 ; Major depressive disorder, recurrent, moderate F33.1 and Problems related to release from senior care Z65.2 [facility] [id number] [place] [address] 24995- 0533 Apr, [facility] [id number] [place] [address] 14312- 9337 Apr, Chronic pain G89.29 ; 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 ; Morbid (severe) obesity due to excess calories E66.01 ; Anxiety F41.9 and BMI 40.0-44.9, adult Z68.41 [facility] [id number] [place] [address] 56002 -2645 Apr, Sore throat J02.9 and BMI 40.0-44.9, adult Z68.41 [address] [address] 07487- 9530 Apr, Left leg pain M79.605 [facility] [address] [place] [address] [id number] Mar, Dental examination Z01.20 [facility] [address] 35663- 6806 Mar, [facility] [address] 30606 -6015 Mar, Cough R05 ; Viral gastroenteritis A08.4 and BMI 40.0-44.9, adult Z68.41 [address] [address] 45720- 9351 Mar, Left leg pain M79.605 [facility] [id number] [place] [address] 56091- 2823 06 Mar, 2017 Post-traumatic stress disorder, unspecified F43.10 ; Major depressive disorder, recurrent, moderate F33.1 and Problems related to release from senior care Z65.2 [facility] [id number] [place] [address] 09984- 2309 Feb, Left leg pain M79.605 [facility] [id number] [place] [address] 89187- 3735 Feb, [address] [address] 68413- 5450 Feb, BMI 40.0-44.9, adult Z68.41 ; Chronic pain syndrome G89.4 ; Migraine without aura and without status migrainosus, not intractable G43.009 ; Mitral valve prolapse I34.1 and 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 [facility] [id number] [place] [address] 40068- 1053 Feb, Post-traumatic stress disorder, chronic F43.12 ; Anxiety F41.9 ; Problems related to release from senior care Z65.2 and BMI 40.0-44.9, adult Z68.41 [facility] [id number] [place] [address] 65507- 5585 Feb, Post-traumatic stress disorder, unspecified F43.10 ; Major depressive disorder, recurrent, moderate F33.1 and Problems related to release from senior care Z65.2 [facility] [id number] [place] [address] 97259- 5862 Feb, Left leg pain M79.605 [address] [id number] [place] [address] 91373- 7215 Jan, Post-traumatic stress disorder, unspecified F43.10 ; Major depressive disorder, recurrent, moderate F33.1 and Problems related to release from senior care Z65.2 [facility] [id number] [place] [address] 09019- 0883 Jan, [facility] [id number] [place] [address] 21650- 6173 Jan, [facility] [id number] [place] [address] 31883- 2494 Jan, Anxiety F41.9 [facility] [id number] [place] [address] 67169- 5185 Jan, Left leg pain M79.605 [facility] [id number] [place] [address] 35218- 6563 Dec, Left leg pain M79.605 [facility] [id number] [place] [address] 77446- 4025 Dec, [facility] [id number] [place] [address] 80094- 1303 Dec, Post-traumatic stress disorder, unspecified F43.10 ; Major depressive disorder, recurrent, moderate F33.1 and Problems related to release from senior care Z65.2 [facility] [id number] [place] [address] 80357- 2501 31 Nov, 2016 Chronic pain G89.29 and Anxiety F41.9 [address] [id number] [place] [address]91 24 Nov, 2016 Chronic pain G89.29 and Anxiety F41.9 [address] [address] 19017- 9221 16 Nov, 2016 Post-traumatic stress disorder, unspecified F43.10 ; Major depressive disorder, recurrent, moderate F33.1 and Problems related to release from senior care Z65.2 [address] [address] 89405- 5697 09 Nov, 2016 Other abnormal findings in specimens from other organs, systems and tissues R89.8 ; Other male erectile dysfunction N52.8 ; Body mass index (BMI) of 40.0-44.9 in adult Z68.41 and Morbid (severe) obesity due to excess calories E66.01 [facility] [id number] [place] [address] 08904- 4169 02 Nov, 2016 Post-traumatic stress disorder, unspecified F43.10 ; Major depressive disorder, recurrent, moderate F33.1 and Problems related to release from senior care Z65.2 [facility] [id number] [place] [address] [phone] Oct, Dental examination Z01.20 [facility] [id number] [place] [address] 46777- 2680 Oct, [facility] [id number] [place] [address] 21124- 8414 Oct, Encounter for immunization Z23 [address] [address] 09166- 6606 26 Oct, 2016 Chronic pain G89.29 ; Anxiety F41.9 ; Arrhythmia as indication for cardiac pacemaker replacement I49.9 and Glaucoma H40.[address] 87473- 9197 Oct, Anxiety F41.9 ; Post-traumatic stress disorder, chronic F43.12 and Problems related to release from senior care Z65.2 [address] [place] [id number] [place] [address]32 07 Oct, 2016 Post-traumatic stress disorder, unspecified F43.10 ; Major depressive disorder, recurrent, moderate F33.1 and Problems related to release from senior care Z65.2 [address] [place] [id number] [place] [address] 90779- 4734 Sep, Chronic pain G89.29 and Anxiety F41.9 [address] [id number] [place] [address] 38491- 3196 Sep, Post-traumatic stress disorder, unspecified F43.10 ; Major depressive disorder, recurrent, moderate F33.1 and Problems related to release from senior care Z65.2 [facility] [id number] [place] [address] 43098- 6217 Sep, Post-traumatic stress disorder, unspecified F43.10 ; Major depressive disorder, recurrent, moderate F33.1 and Problems related to release from senior care Z65.2 [facility] [address] [place] [address] 66446- 2939 Sep, Chronic pain G89.29 [facility] [id number] [place] [address] 05287- 0210 Aug, Dental caries, unspecified K02.9 [address] [facility] [address] [place] [address] 84161- 2336 Aug, Sleep apnea, obstructive G47.33 ; Obesity E66.9 ; Chronic pain G89.29 ; HTN (hypertension) I10 ; Major depressive disorder, recurrent, moderate F33.1 ; Anxiety F41.9 ; Chronic tension headaches G44.229 ; Mitral valve prolapse I34.1 ; Arrhythmia as indication for cardiac pacemaker replacement I49.9 ; Dental caries, unspecified K02.9 ; Primary insomnia F51.01 and Hyperlipidemia E78.5 [address] [place], [place] [address]- 7435 Aug, Post-traumatic stress disorder, unspecified F43.10 ; Major depressive disorder, recurrent, moderate F33.1 and Problems related to release from senior care Z65.2 [facility] [address], [place] [address]- 0806 Aug, Dental examination Z01.20 [facility] [address] [place] [address] [phone] Aug, Dental examination Z01.20 [facility] [id number] [place] [address] 08276- 4391 06 Aug, 2016 Post-traumatic stress disorder, unspecified F43.10 ; Major depressive disorder, recurrent, moderate F33.1 and Problems related to release from senior care Z65.2 [facility] [id number] [place] [address] 61956- 0532 Aug, Chronic pain G89.29 and Primary insomnia F51.01 [facility] [id number] [place] [address] 75559- 6031 Jul, [facility] [id number] [place] [address] 48658- 0172 Jul, [facility] [id number] [place] [address] 51201- 0377 Jul, Nausea R11.0 [facility] [id number] [place] [address] 89441- 9775 Jul, Arrhythmia as indication for cardiac pacemaker replacement I49.9 [facility] [id number] [place] [address] 82100- 6343 Jul, Post-traumatic stress disorder, unspecified F43.10 ; Major depressive disorder, recurrent, moderate F33.1 and Problems related to release from senior care Z65.2 [facility] [address] [place] [address] 36339- 4330 Jul, Anxiety F41.9 [facility] [address] [place] [address] 12697- 8693 08 Jul, 2016 Chronic pain G89.29 [address] [facility] [address] [place] [address] 95573- 9207 Jul, Sleep apnea, obstructive G47.33 ; Hyperlipidemia E78.5 ; Chronic pain G89.29 ; Blindness and low vision H54.10 ; Major depressive disorder, recurrent, moderate F33.1 ; Anxiety F41.9 ; Mitral valve prolapse I34.1 ; Arrhythmia as indication for cardiac pacemaker replacement I49.9 ; Primary insomnia F51.01 ; Bilateral headaches R51 and Environmental allergies Z91.[address] [address]52- 1984 Jul, Post-traumatic stress disorder, unspecified F43.10 ; Major depressive disorder, recurrent, moderate F33.1 and Problems related to release from senior care Z65.[address] 72791- 0830 June, Post-traumatic stress disorder, chronic F43.12 ; Anxiety F41.9 ; Problems related to release from senior care Z65.2 ; Sleep apnea, obstructive G47.33 and Primary insomnia F51.01 [facility] [id number] [place] [address] 24615- 2910 June, [facility] [id number] [place] [address] 15384- 4489 June, [address] [facility] 45675- 9568 June, [facility] [id number] [place] [address] 72940- 4399 June, Chronic pain G89.29 [facility] [address] [place] [address] 85700- 9879 June, Chronic pain G89.29 [facility] [address] [place] [address] 80507- 4714 June, Lipoma of left lower extremity D17.24 ; Open wound T14.8 and Swelling of left lower extremity M79.89 [facility] [address] [place] [address] 59127- 3150 June, Post-traumatic stress disorder, unspecified F43.10 ; Major depressive disorder, recurrent, moderate F33.1 and Problems related to release from senior care Z65.2 [address] [address] 43289- 2487 May, Lipoma of left lower extremity D17.24 ; Major depressive disorder, recurrent, moderate F33.1 ; Sleep apnea, obstructive G47.33 ; Hyperlipidemia E78.5 ; Obesity E66.9 ; HTN (hypertension) I10 ; Glaucoma H40.9 ; CAD (coronary artery disease) I25.10 ; Chronic tension headaches G44.229 ; Chronic pain G89.29 ; Anxiety F41.9 ; Nausea R11.0 and Primary insomnia F51.01 [address] [facility] [address] 96475- 0522 May, [facility] [address] 11225- 7475 May, Chronic pain G89.29 [facility] [facility] [address] 18274- 5998 May, [facility] [address] [place] [address] 16031- 1742 Apr, Post-traumatic stress disorder, unspecified F43.10 ; Major depressive disorder, recurrent, moderate F33.1 and Problems related to release from senior care Z65.2 [facility] [address] [place] [address] 71232- 9267 Apr, Primary insomnia F51.01 ; Post-traumatic stress disorder, chronic F43.12 and Problems related to release from senior care Z65.2 [facility] [address] [place] [address] 74484- 6647 Apr, Post-traumatic stress disorder, unspecified F43.10 ; Major depressive disorder, recurrent, moderate F33.1 and Problems related to release from senior care Z65.2 [facility] [address] [place] [address] 54760- 2033 16 Apr, 2016 [address] [facility] [address] [place] [address] 78381- 1051 16 Apr, 2016 Sleep apnea, obstructive G47.33 ; Chronic pain G89.29 ; HTN (hypertension) I10 ; Mitral valve prolapse I34.1 ; Shoulder pain, left M25.512 ; Arrhythmia as indication for cardiac pacemaker replacement I49.9 ; Glaucoma H40.9 ; Bilateral headaches R51 ; Environmental allergies Z91.09 ; Primary insomnia F51.01 and Nausea R11.0 [facility] [address] [place] [address] 49395- 0897 Apr, [facility] [address] [place] [address] 68737- 6178 Apr, [facility] [address] [place] [address] 88293- 6612 Apr, Post-traumatic stress disorder, unspecified F43.10 ; Major depressive disorder, recurrent, moderate F33.1 and Problems related to release from senior care Z65.2 [facility] [address] [place] [address] 13298- 2971 Apr, HTN (hypertension) I10 [facility] [address] [place] [address] 23570- 3636 Apr, HTN (hypertension) I10 [facility] [address] [place] [address] 17455- 9154 14 Mar, 2016 Chronic pain G89.29 ; Primary insomnia F51.01 and Problems related to release from senior care Z65.2 [facility] [address] [place] [address] 34044- 4319 07 Mar, 2016 Post-traumatic stress disorder, unspecified F43.10 ; Major depressive disorder, recurrent, moderate F33.1 and Problems related to release from senior care Z65.2 [address] [place] [address] 16651- 9610 Feb, Post-traumatic stress disorder, unspecified F43.10 ; Major depressive disorder, recurrent, moderate F33.1 and Problems related to release from senior care Z65.2 [facility] [place] [address] [place] [address] 78262- 1022 Feb, Chronic tension headaches G44.229 [address] [place] [address] 56845- 4067 Feb, Sleep apnea, obstructive G47.33 ; Obesity [...] pacemaker replacement I49.9 and Primary insomnia F51.01 [id number] [place] [address] 97367- 7084 Feb, Post-traumatic stress disorder, unspecified F43.10 and Chronic pain G89.29 [address] [place] [address] 25311- 7210 Feb, [facility] [address] [place] [address] [id number] Feb, Dental caries K02.9 [address] [place] [address] 05298- 6909 Feb, [address] 94278- 3349 Feb, Post-traumatic stress disorder, unspecified F43.10 ; Major depressive disorder, recurrent, moderate F33.1 and Problems related to release from senior care Z65.2 [facility] [place] [address] [place] [address] 45024- 6719 Jan, Sleep apnea, obstructive G47.33 and Chronic pain G89.29 [facility] [address], [place] [address]- 3360 Jan, [facility] [address] [place] [address] 74574- 4380 14 Jan, 2016 Dental examination Z01.20 [facility] [address] [place] [address] 49176- 8780 Jan, [facility] [address] [place] [address] 29509- 7402 Jan, [facility] [address] [place] [address] 50679- 4212 Dec, Post-traumatic stress disorder, unspecified F43.10 ; Major depressive disorder, recurrent, moderate F33.1 and Problems related to release from senior care Z65.2 [address] [place] [address] 72072- 0479 Dec, Encounter for immunization Z23 ; Problems related to release from senior care Z65.2 ; Sleep apnea, obstructive G47.33 and Post-traumatic stress disorder, chronic F43.12 [address] [place] [address] 74788- 1353 18 Dec, 2015 Sleep apnea, obstructive G47.33 ; Hyperlipidemia E78.5 ; Chronic pain G89.29 ; Glaucoma H40.9 ; HTN (hypertension) I10 ; Post-traumatic stress disorder, unspecified F43.10 ; Anxiety F41.9 ; Chronic tension headaches G44.229 ; Mitral valve prolapse I34.1 and CAD (coronary artery disease) I25.10 [facility] [address] [place] [address] 10399- 0136 15 Dec, 2015 Post-traumatic stress disorder, unspecified F43.10 ; Major depressive disorder, recurrent, moderate F33.1 and Problems related to release from senior care Z65.2 [address] [place] [address] 31130- 9673 Nov, Chronic pain G89.29 [place], [place] [address]- 9530 Nov, Post-traumatic stress disorder, unspecified F43.10 ; Major depressive disorder, recurrent, moderate F33.1 and Problems related to release from senior care Z65.2 [facility] [address], [place] [address]- 7121 Oct, [facility] [address] [place] [address] 23781- 4459 Oct, [facility] [facility] [address] [place] [address] 68814- 4634 Oct, Post-traumatic stress disorder, unspecified F43.10 ; Major depressive disorder, recurrent, moderate F33.1 and Problems related to release from senior care Z65.2 [facility] [place] [address] [place] [address] 50269- 1624 08 Oct, 2015 [facility] [address] [place] [address] 16304- 7419 07 Oct, 2015 Environmental allergies Z91.09 ; Cough R05 and Open-angle glaucoma of both eyes H40.10X0 [facility] [address], [place] [address]- 8327 Sep, [facility] [address] [address]- 0832 Sep, Post-traumatic stress disorder, unspecified F43.10 ; Major depressive disorder, recurrent, moderate F33.1 and Problems related to release from senior care Z65.2 [place] [address], [place] [address]- 5640 Sep, Chronic pain G89.29 [facility] [address] [place] [address] 23858- 4851 Sep, Pain in left shoulder M25.512 ; Pain in right shoulder M25.511 and Other chronic pain G89.29 [facility] [address] [address]- 8238 Sep, [facility] [address], [place] [address]- 0053 Sep, [facility] [address]- [address] Sep, [facility] [address] [id number] Aug, Dental examination Z01.20 [facility] [id number] [place] [address] 89713- 9859 Aug, Post-traumatic stress disorder, unspecified F43.10 ; Open- angle glaucoma of both eyes H40.10X0 and Problems related to release from senior care Z65.2 [facility] [address] [place] [address] 74233- 8987 Aug, [facility] [id number] [place] [address] 03887- 9067 Aug, Sleep apnea, obstructive G47.33 ; Obesity E66.9 ; Hyperlipidemia E78.5 ; Bilateral headaches R51 ; HTN (hypertension) I10 ; Post- traumatic stress disorder, unspecified F43.10 ; Anxiety F41.9 ; Neuropathy G62.9 ; Glaucoma H40.9 and Chronic pain G89.29 [facility] [address] [id number] [id number] Aug, Encounter for dental examination Z01.20 [facility] [id number] [place] [id number] [id number] Aug, Post-traumatic stress disorder, unspecified F43.10 ; Major depressive disorder, recurrent, moderate F33.1 and Problems related to release from senior care Z65.2 [facility] [id number], [place] [address] Aug, [facility] [address], [place] [address] Jul, [facility] [id number] [address] Jul, Post-traumatic stress disorder, unspecified F43.10 and Major depressive disorder, recurrent, moderate F33.1 [facility] [id number], [place] [address] Jul, [facility] [id number], [place] [address] Jul, [facility] [id number] [place] [address] 64296- 0017 Jul, Chronic pain G89.29 [facility] [id number] [place] [address] 72663- 7636 June, Post-traumatic stress disorder, unspecified F43.10 and Major depressive disorder, recurrent, moderate F33.1 [facility] [id number], [place] [address] June, [facility] [id number] [place] [address] 24225- 0059 June, Chronic pain G89.29 [facility] [id number] [place] [address] 58133- 9720 June, Post-traumatic stress disorder, unspecified F43.10 and Major depressive disorder, recurrent, moderate F33.1 [facility] [id number], [place] [address] May, Post-traumatic stress disorder, unspecified F43.10 and Major depressive disorder, recurrent, moderate F33.1 [facility] [address], [place] [address] May, [facility] [id number] [place] [address] 51857- 6550 May, [facility] [address], [place] [address] May, [facility] [id number] [place] [address] 07186- 3272 Apr, [facility] [id number] [place] [address] 25590- 1325 Apr, Post-traumatic stress disorder, unspecified F43.10 and Sleep apnea, obstructive G47.33 [facility] [id number] [place] [address] 17707- 1291 Apr, [facility] [id number] [place] [address] 84713- 0526 Apr, Shoulder pain, left M25.512 [facility] [id number] [place] [address] 59668- 4249 Apr, Post-traumatic stress disorder, unspecified F43.10 and Major depressive disorder, recurrent, moderate F33.1 [facility] [id number] [place] [address] 30283- 3999 17 Apr, 2015 [facility] [id number] [place] [address] 58513- 0594 Apr, [facility] [id number] [place] [address] 76982- 1811 08 Apr, 2015 [facility] [id number] [place] [address] 79952- 1909 Apr, Left shoulder pain M25.512 [facility] [id number] [place] [address] 19818- 4536 Mar, [facility] [id number] [place] [address] 96170- 2287 Mar, [facility] [id number] [place] [address] 87487- 0985 Mar, [facility] [id number] [place] [address] 22070- 4528 12 Mar, 2015 Sleep apnea, obstructive G47.33 ; Obesity E66.9 ; Chronic pain G89.29 ; Hyperlipidemia E78.5 ; HTN (hypertension) I10 ; Blindness and low vision H54.10 ; Major depressive disorder, recurrent, moderate F33.1 and Anxiety F41.9 [facility] [id number] [place] [address] 75541- 9528 Mar, [facility] [id number] [place] [address] 84312- 1478 Mar, Post-traumatic stress disorder, unspecified F43.10 and Major depressive disorder, recurrent, moderate F33.1 [facility] [id number] [place] [address] 98209- 9376 Mar, [place] [id number] [place] [address] 70453- 9936 04 Mar, 2015 HTN (hypertension) I10 ; Blindness and low vision H54.10 ; Obesity E66.9 ; Hyperlipidemia E78.5 ; Glaucoma H40.9 ; Chronic pain G89.29 and CAD (coronary artery disease) I25.10 [facility] [id number] [place] [address] 62432- 0236 Feb, [facility] [id number] [place] [address] 66259- 2661 Feb, Post-traumatic stress disorder, unspecified F43.10 ; Obesity E66.9 ; Sleep apnea, obstructive G47.33 and Open-angle glaucoma of both eyes H40.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 [place] [id number] [place] [address] 52632- 0551 Feb, Post-traumatic stress disorder, unspecified F43.10 and Major depressive disorder, recurrent, moderate F33.1 [facility] [id number] [place] [address] 53123- 1046 Feb, [address] [address]23 Feb, [facility] [id number] [place] [address] 88773- 7730 Feb, HTN (hypertension) I10 ; Post-traumatic stress disorder, unspecified F43.10 ; Blindness and low vision H54.10 ; Obesity E66.9 ; Hyperlipidemia E78.5 ; Chronic pain G89.29 ; Glaucoma H40.9 ; Mitral valve prolapse I34.1 and Bilateral headaches R51 [facility] [id number] [place] [address] 70195- 9970 Feb, [facility] [address] [address]12- 0771 Feb, Post-traumatic stress disorder, unspecified F43.10 and Major depressive disorder, recurrent, moderate F33.1 [facility] [address] 22043- 6227 Feb, [facility] [address] 04168- 4162 Feb, [facility] [facility] [address] 45236- 6403 Jan, [facility] [address] 47452- 4750 Jan, [facility] [address] 18191- 2792 Jan, Obesity E66.9 ; HTN (hypertension) I10 ; Blindness and low vision H54.10 ; Major depressive disorder, recurrent, moderate F33.1 ; Glaucoma H40.9 ; Hyperlipidemia E78.5 ; Sleep apnea, obstructive G47.33 ; Chronic pain G89.29 ; Anxiety F41.9 ; Chronic tension headaches G44.229 and Cough R05 [facility] [id number] [place] [address] 88665- 2237 Jan, [address] [address]- 5647 Jan, [place] [id number] [place] [address] 35386- 6460 Jan, Post-traumatic stress disorder, unspecified F43.10 ; Obesity E66.9 ; Sleep apnea, obstructive G47.33 and Open-angle glaucoma of both eyes H40.10X0 [facility] [id number] [place] [id number] Jan, [address] 4622 Jan, Post-traumatic stress disorder, unspecified F43.10 and Major depressive disorder, recurrent, moderate F33.1 [place] [address]752- 2985 Dec, [facility] [address]- 4189 Dec, Sleep apnea, obstructive G47.33 ; Obesity E66.9 ; Hyperlipidemia E78.5 ; Glaucoma H40.9 ; Chronic pain G89.29 ; HTN (hypertension ) I10 ; Blindness and low vision H54.10 ; Anxiety F41.9 and CAD (coronary artery disease) I25.10 [facility] [address] 30963- 7711 Nov, [address] 745300- 6903 Nov, [facility] [address] 02060- 5053 Nov, [address] 89602- 3002 Nov, [facility] [address] [id number]- [address]205 Nov, [address] 40899- 5339 Nov, Encounter for immunization Z23 ; Sleep apnea, obstructive G47.33 ; Obesity E66.9 ; Hyperlipidemia E78.5 ; Glaucoma H40.9 ; Chronic pain G89.29 ; Anxiety F41.9 ; Chronic tension headaches G44.229 and HTN (hypertension ) I10 [address] [place] [address]- 7278 19 Nov, 2014 [facility] [id number] [place] [address] 50750- 3113 14 Nov, 2014 [facility] [id number] [place] [address] 47467- 2547 06 Nov, 2014 Dizziness R42 [facility] [id number] [place] [address] 07760- 1721 Nov, [facility] [id number] [place] [address] 41173- 7830 29 Oct, 2014 [facility] [id number] [place] [address] 97166- 0129 28 Oct, 2014 [facility] [id number] [place] [address] 93155- 8901 Oct, [facility] [id number] [place] [address] 11341- 3359 Oct, [facility] [id number] [place] [address] 49031- 2985 17 Oct, 2014 Dizziness 780.4 ; Essential hypertension 401.9 ; Obesity 278.00 ; Hyperlipidemia 272.4 ; Chronic pain 338.29 ; Glaucoma 365.9 and Anxiety 300.00 [facility] [id number] [place] [address] 43969- 0893 Oct, Essential hypertension 401.9 ; Hyperlipidemia 272.4 ; Glaucoma 365.9 ; Obesity 278.00 ; Chronic pain 338.29 and Allergy to insects V15.06 [facility] [id number] [place] [address] 20079- 9113 Sep, [facility] [id number] [place] [address] 09034- 0356 Sep, [facility] [id number] [place] [address] 51033- 7736 Sep, [facility] [id number] [place] [address] 42054- 1632 Sep, [facility] [address] [facility] [id number] [place] [address]- 8853 Aug, Essential hypertension 401.9 ; Obesity 278.00 ; Hyperlipidemia 272.4 ; Glaucoma 365.9 ; Lipoma 214.9 ; Mitral valve prolapse 424.0 ; Angina at rest 413.9 ; Lymphedema 457.1 and Chronic pain 338.29 IMMUNIZATIONS No Known Immunizations SOCIAL HISTORY Never Assessed REASON FOR VISIT Tramadol and ALprazolam- 12/08 PLAN OF CARE VITAL SIGNS MEDICATIONS Medication Instructions Dosage Frequency Start Date End Date Duration Status Hydrocodone-Acetaminophen 7.5-325 MG Orally 4 times a day 1 tablet 6h Dec, 28 days Active Xanax 1 MG Orally Twice [...]
--- OUTSIDE RECORDS SUMMARY | 2018-02-04 15:07 | XMS REPORT ---
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 Role Phone EDUIN Ramos Unavailable PROBLEMS Type Condition ICD9-CM Code FZG43-NA Code Onset Dates Condition Status SNOMED Code Problem Environmental allergies Z91.09 Active 809435714 Problem Primary insomnia F51.01 Active 3266438 Problem Arrhythmia as indication for cardiac pacemaker replacement I49.9 Active 71968127 Problem Chronic pain syndrome G89.4 Active 422585763 Problem Sleep apnea, obstructive G47.33 Active 77045380 Problem Migraine without aura and without status migrainosus, not intractable G43.009 Active 292554077 Problem Hyperlipidemia E78.5 Active 16433724 Problem Myocarditis, unspecified chronicity, 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 Active 94158684 Problem Other male erectile dysfunction N52.8 Active 381648869 Problem Morbid (severe) obesity due to excess calories E66.01 Active 346164256 Problem 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 Active 090090884 Problem Body mass index (BMI) of 40.0-44.9 in adult Z68.41 Active 034123840 Problem Blindness and low vision H54.10 Active 653379944 Problem Chronic tension headaches G44.229 Active 202460346 Problem Chronic pain G89.29 Active 87619665 Problem HTN (hypertension) I10 Active 91653557 Problem Open-angle glaucoma of both eyes H40.10X0 Active 11866371 Problem Mitral valve prolapse I34.1 Active 707830086 Problem Anxiety F41.9 Active 34295937 Problem CAD (coronary artery disease) I25.10 Active 18650515 Problem Major depressive disorder, recurrent, moderate F33.1 Active 16690901 Problem Post-traumatic stress disorder, chronic F43.12 Active 773729014 ALLERGIES No Information ENCOUNTERS Encounter Location Date Diagnosis [facility] [address] [facility] [id number] [place] [address] 81207- 5713 May, [facility] [id number] [place] [address] 40772- 4373 May, [facility] [id number] [place] [address] 35899- 3691 Apr, [facility] [address] 89214- 0715 Apr, [facility] [address] 40161- 3684 Apr, [facility] [address] 86564- 6297 Apr, Left leg pain M79.605 [place] [address] 10123- 7283 13 Apr, 2017 Post-traumatic stress disorder, unspecified F43.10 ; Major depressive disorder, recurrent, moderate F33.1 and Problems related to release from retirement Z65.2 [facility] [id number] [place] [address] 72632- 0020 12 Apr, 2017 [facility] [id number] [place] [address] 76041- 4607 12 Apr, 2017 Chronic pain G89.29 ; 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 ; Morbid (severe) obesity due to excess calories E66.01 ; Anxiety F41.9 and BMI 40.0-44.9, adult Z68.41 [facility] [id number] [place] [address] 29638 -1925 10 Apr, 2017 Sore throat J02.9 and BMI 40.0-44.9, adult Z68.41 [facility] [id number] [place] [address] 57629- 4438 02 Apr, 2017 Left leg pain M79.605 [facility] [id number] [place] [address] [id number] Mar, Dental examination Z01.20 [facility] [id number] [place] [address] 01557- 4760 Mar, [facility] [address] 18910 -8140 Mar, Cough R05 ; Viral gastroenteritis A08.4 and BMI 40.0-44.9, adult Z68.41 [place] [address] 86819- 2919 Mar, Left leg pain M79.605 [place] [address] 52871- 4141 Mar, Post-traumatic stress disorder, unspecified F43.10 ; Major depressive disorder, recurrent, moderate F33.1 and Problems related to release from retirement Z65.2 [place] [address] 87665- 7857 Feb, Left leg pain M79.605 [place] [address] 18827- 5620 Feb, [place] [address] 26278- 2330 Feb, BMI 40.0-44.9, adult Z68.41 ; Chronic pain syndrome G89.4 ; Migraine without aura and without status migrainosus, not intractable G43.009 ; Mitral valve prolapse I34.1 and 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 [place] [address] 32291- 7396 Feb, Post-traumatic stress disorder, chronic F43.12 ; Anxiety F41.9 ; Problems related to release from retirement Z65.2 and BMI 40.0-44.9, adult Z68.41 [place] [address] 12886- 3688 Feb, Post-traumatic stress disorder, unspecified F43.10 ; Major depressive disorder, recurrent, moderate F33.1 and Problems related to release from retirement Z65.2 [place] [id number] [place] [address] 65610- 4393 Feb, Left leg pain M79.605 [facility] [id number] [place] [address] 02695- 0366 Jan, Post-traumatic stress disorder, unspecified F43.10 ; Major depressive disorder, recurrent, moderate F33.1 and Problems related to release from retirement Z65.2 [facility] [id number] [place] [address] 57231- 1557 Jan, [facility] [id number] [place] [address] 09182- 1610 Jan, [facility] [id number] [place] [address] 28045- 1230 Jan, Anxiety F41.9 [facility] [id number] [place] [address] 52863- 5811 Jan, Left leg pain M79.605 [facility] [id number] [place] [address] 96598- 0067 Dec, Left leg pain M79.605 [facility] [id number] [place] [address] 25323- 1659 Dec, [facility] [id number] [place] [address] 67706- 8108 Dec, Post-traumatic stress disorder, unspecified F43.10 ; Major depressive disorder, recurrent, moderate F33.1 and Problems related to release from retirement Z65.2 [facility] [id number] [place] [address] 36108- 3233 Nov, Chronic pain G89.29 and Anxiety F41.9 [facility] [id number] [place] [address] 45947- 8464 24 Nov, 2016 Chronic pain G89.29 and Anxiety F41.9 [facility] [id number] [place] [address] 67254- 6360 16 Nov, 2016 Post-traumatic stress disorder, unspecified F43.10 ; Major depressive disorder, recurrent, moderate F33.1 and Problems related to release from retirement Z65.2 [facility] [id number] [place] [address] 24700- 7048 09 Nov, 2016 Other abnormal findings in specimens from other organs, systems and tissues R89.8 ; Other male erectile dysfunction N52.8 ; Body mass index (BMI) of 40.0-44.9 in adult Z68.41 and Morbid (severe) obesity due to excess calories E66.01 [place] [id number] [place] [address] 62366- 0215 02 Nov, 2016 Post-traumatic stress disorder, unspecified F43.10 ; Major depressive disorder, recurrent, moderate F33.1 and Problems related to release from retirement Z65.2 [facility] [id number] [place] [address] [id number] 29 Oct, 2016 Dental examination Z01.20 [place] [id number] [place] [address] 43253- 9918 Oct, [place] [id number] [place] [address] 76927- 0823 Oct, Encounter for immunization Z23 [place] [id number] [place] [address] 25896- 6902 Oct, Chronic pain G89.29 ; Anxiety F41.9 ; Arrhythmia as indication for cardiac pacemaker replacement I49.9 and Glaucoma H40.9 [facility] [id number] [place] [address] 57244- 3057 Oct, Anxiety F41.9 ; Post-traumatic stress disorder, chronic F43.12 and Problems related to release from retirement Z65.2 [facility] [id number] [place] [address] 70231- 6605 07 Oct, 2016 Post-traumatic stress disorder, unspecified F43.10 ; Major depressive disorder, recurrent, moderate F33.1 and Problems related to release from retirement Z65.2 [place] [id number] [address]- 9338 Sep, Chronic pain G89.29 and Anxiety F41.9 [place] [id number] [place] [address] 11266- 2878 Sep, Post-traumatic stress disorder, unspecified F43.10 ; Major depressive disorder, recurrent, moderate F33.1 and Problems related to release from retirement Z65.2 [place] [id number] [place] [address] 53085- 3425 Sep, Post-traumatic stress disorder, unspecified F43.10 ; Major depressive disorder, recurrent, moderate F33.1 and Problems related to release from retirement Z65.2 [place] [id number] [place] [address] 52160- 9375 Sep, Chronic pain G89.29 [place] [id number] [place] [address] 38911- 1739 Aug, Dental caries, unspecified K02.[address] [place] [address] 39630- 0510 Aug, Sleep apnea, obstructive G47.33 ; Obesity E66.9 ; Chronic pain G89.29 ; HTN (hypertension) I10 ; Major depressive disorder, recurrent, moderate F33.1 ; Anxiety F41.9 ; Chronic tension headaches G44.229 ; Mitral valve prolapse I34.1 ; Arrhythmia as indication for cardiac pacemaker replacement I49.9 ; Dental caries, unspecified K02.9 ; Primary insomnia F51.01 and Hyperlipidemia E78.[address] [place] [address] 28490- 2801 Aug, Post-traumatic stress disorder, unspecified F43.10 ; Major depressive disorder, recurrent, moderate F33.1 and Problems related to release from retirement Z65.2 [address] [address]- 0281 Aug, Dental examination Z01.20 [facility] [id number] [place] [address] [id number] Aug, Dental examination Z01.20 [place] [id number] [place] [address] 10121- 5219 06 Aug, 2016 Post-traumatic stress disorder, unspecified F43.10 ; Major depressive disorder, recurrent, moderate F33.1 and Problems related to release from retirement Z65.2 [place] [id number] [place] [address] 84091- 3535 Aug, Chronic pain G89.29 and Primary insomnia F51.01 [place] [id number] [place] [address] 41376- 1228 Jul, [place] [id number] [place] [address] 31900- 9940 Jul, [place] [id number] [place] [address] 45890- 1022 Jul, Nausea R11.0 [place] [id number] [place] [address] 45696- 5112 Jul, Arrhythmia as indication for cardiac pacemaker replacement I49.9 [place] [id number] [place] [address] 79440- 8750 Jul, Post-traumatic stress disorder, unspecified F43.10 ; Major depressive disorder, recurrent, moderate F33.1 and Problems related to release from retirement Z65.2 [place] [id number] [place] [address] 61307- 4436 09 Jul, 2016 Anxiety F41.9 [place] [id number] [place] [address] 28350- 8449 08 Jul, 2016 Chronic pain G89.29 [place] [id number] [place] [address] 35614- 2866 Jul, Sleep apnea, obstructive G47.33 ; Hyperlipidemia E78.5 ; Chronic pain G89.29 ; Blindness and low vision H54.10 ; Major depressive disorder, recurrent, moderate F33.1 ; Anxiety F41.9 ; Mitral valve prolapse I34.1 ; Arrhythmia as indication for cardiac pacemaker replacement I49.9 ; Primary insomnia F51.01 ; Bilateral headaches R51 and Environmental allergies Z91.09 [place] [address] 52672- 6323 Jul, Post-traumatic stress disorder, unspecified F43.10 ; Major depressive disorder, recurrent, moderate F33.1 and Problems related to release from retirement Z65.2 [place] [address] 93894- 6402 June, Post-traumatic stress disorder, chronic F43.12 ; Anxiety F41.9 ; Problems related to release from retirement Z65.2 ; Sleep apnea, obstructive G47.33 and Primary insomnia F51.01 [place] [id number] [place] [address] 38106- 0586 June, [place] [address] 51333- 1217 June, [place] [address] 41059- 0097 June, [place] [address] 48065- 3341 June, Chronic pain G89.29 [place] [id number] [place] [address] 61097- 5383 June, Chronic pain G89.29 [place] [id number] [place] [address] 55015- 6146 June, Lipoma of left lower extremity D17.24 ; Open wound T14.8 and Swelling of left lower extremity M79.[address] 40580- 4064 June, Post-traumatic stress disorder, unspecified F43.10 ; Major depressive disorder, recurrent, moderate F33.1 and Problems related to release from retirement Z65.2 [place] [address] 77042- 5757 May, Lipoma of left lower extremity D17.24 ; Major depressive disorder, recurrent, moderate F33.1 ; Sleep apnea, obstructive G47.33 ; Hyperlipidemia E78.5 ; Obesity E66.9 ; HTN (hypertension) I10 ; Glaucoma H40.9 ; CAD (coronary artery disease) I25.10 ; Chronic tension headaches G44.229 ; Chronic pain G89.29 ; Anxiety F41.9 ; Nausea R11.0 and Primary insomnia F51.[address] 97017- 8378 May, [address] 95160- 8650 May, Chronic pain G89.[address] 09114- 7131 May, [address] 61801- 1522 31 Apr, 2016 Post-traumatic stress disorder, unspecified F43.10 ; Major depressive disorder, recurrent, moderate F33.1 and Problems related to release from retirement Z65.[address] 60289- 2458 28 Apr, 2016 Primary insomnia F51.01 ; Post-traumatic stress disorder, chronic F43.12 and Problems related to release from retirement Z65.2 [place] [id number] [place] [address] 07246- 2453 17 Apr, 2016 Post-traumatic stress disorder, unspecified F43.10 ; Major depressive disorder, recurrent, moderate F33.1 and Problems related to release from retirement Z65.[address] 58198- 6995 Apr, [address] 37993- 6851 Apr, Sleep apnea, obstructive G47.33 ; Chronic pain G89.29 ; HTN (hypertension) I10 ; Mitral valve prolapse I34.1 ; Shoulder pain, left M25.512 ; Arrhythmia as indication for cardiac pacemaker replacement I49.9 ; Glaucoma H40.9 ; Bilateral headaches R51 ; Environmental allergies Z91.09 ; Primary insomnia F51.01 and Nausea R11.0 [place] [address] [address]- 7338 Apr, [place] [id number] [place] [address] 82957- 9020 Apr, [place] [id number] [place] [address] 02825- 5188 Apr, Post-traumatic stress disorder, unspecified F43.10 ; Major depressive disorder, recurrent, moderate F33.1 and Problems related to release from retirement Z65.2 [place] [id number] [place] [address] 95268- 5724 Apr, HTN (hypertension) I10 [place] [id number] [place] [address] 75802- 0667 Apr, HTN (hypertension) I10 [place] [id number] [place] [address] 51213- 3750 14 Mar, 2016 Chronic pain G89.29 ; Primary insomnia F51.01 and Problems related to release from retirement Z65.2 [place] [address] [place] [address] 31014- 3692 07 Mar, 2016 Post-traumatic stress disorder, unspecified F43.10 ; Major depressive disorder, recurrent, moderate F33.1 and Problems related to release from retirement Z65.2 [place] [address] [place] [address] 50986- 4444 Feb, Post-traumatic stress disorder, unspecified F43.10 ; Major depressive disorder, recurrent, moderate F33.1 and Problems related to release from retirement Z65.2 [place] [address] [place] [address] 87415- 7372 Feb, Chronic tension headaches G44.229 [place] [id number] [place] [address] 69026- 9373 17 Feb, 2016 Sleep apnea, obstructive G47.33 ; Obesity E66.9 ; Hyperlipidemia E78.5 ; Glaucoma H40.9 ; Chronic pain G89.29 ; HTN (hypertension ) I10 ; Blindness and low vision H54.10 ; Open-angle glaucoma of both eyes H40.10X0 ; Chronic tension headaches G44.229 ; Cough R05 ; CAD (coronary artery disease) I25.10 ; Problems related to release from retirement Z65.2 ; Arrhythmia as indication for cardiac pacemaker replacement I49.9 and Primary insomnia F51.01 [place] [address] 11713- 6669 17 Feb, 2016 Post-traumatic stress disorder, unspecified F43.10 and Chronic pain G89.[address] 89551- 0044 13 Feb, 2016 [facility] [address] [id number] Feb, Dental caries K02.[address] 83705- 4415 06 Feb, 2016 [place] [address] 68563- 9282 Feb, Post-traumatic stress disorder, unspecified F43.10 ; Major depressive disorder, recurrent, moderate F33.1 and Problems related to release from retirement Z65.2 [place] [address] 62749- 8912 Jan, Sleep apnea, obstructive G47.33 and Chronic pain G89.[address] 70576- 2497 Jan, [address] 39283- 2199 14 Jan, 2016 Dental examination Z01.[address] 16588- 5192 Jan, [place] [address] [address]- 8473 Jan, [place] [id number] [place] [address] 08163- 5759 Dec, Post-traumatic stress disorder, unspecified F43.10 ; Major depressive disorder, recurrent, moderate F33.1 and Problems related to release from retirement Z65.2 [place] [id number] [place] [address] 07477- 7178 Dec, Encounter for immunization Z23 ; Problems related to release from retirement Z65.2 ; Sleep apnea, obstructive G47.33 and Post-traumatic stress disorder, chronic F43.12 [place] [id number] [place] [address] 78592- 9529 Dec, Sleep apnea, obstructive G47.33 ; Hyperlipidemia E78.5 ; Chronic pain G89.29 ; Glaucoma H40.9 ; HTN (hypertension) I10 ; Post-traumatic stress disorder, unspecified F43.10 ; Anxiety F41.9 ; Chronic tension headaches G44.229 ; Mitral valve prolapse I34.1 and CAD (coronary artery disease) I25.[address] [place] [address] 54080- 6911 Dec, Post-traumatic stress disorder, unspecified F43.10 ; Major depressive disorder, recurrent, moderate F33.1 and Problems related to release from retirement Z65.2 [place] [address] [place] [address] 73050- 2024 Nov, Chronic pain G89.29 [address] [place] [address] 38247- 9977 Nov, Post-traumatic stress disorder, unspecified F43.10 ; Major depressive disorder, recurrent, moderate F33.1 and Problems related to release from retirement Z65.2 [place] [address] [address]- 2466 Oct, [address] [place] [address]- 8223 23 Oct, 2015 [facility] [id number] [place] [address] 33947- 5224 16 Oct, 2015 Post-traumatic stress disorder, unspecified F43.10 ; Major depressive disorder, recurrent, moderate F33.1 and Problems related to release from retirement Z65.2 [facility] [id number] [place] [address] 37330- 6878 08 Oct, 2015 [facility] [id number] [place] [address] 14558- 7926 07 Oct, 2015 Environmental allergies Z91.09 ; Cough R05 and Open-angle glaucoma of both eyes H40.10X0 [facility] [id number] [place] [address] 29113- 2766 Sep, [facility] [id number] [place] [address] 30469- 3518 Sep, Post-traumatic stress disorder, unspecified F43.10 ; Major depressive disorder, recurrent, moderate F33.1 and Problems related to release from retirement Z65.2 [facility] [id number] [place] [address] 14374- 0071 Sep, Chronic pain G89.29 [facility] [id number] [place] [address] 41290- 4282 Sep, Pain in left shoulder M25.512 ; Pain in right shoulder M25.511 and Other chronic pain G89.29 [facility] [address] [place] [address] 94853- 9312 Sep, [facility] [id number] [place] [address] 88371- 1612 Sep, [facility] [id number] [place] [address] 86534- 9116 Sep, [facility] [address] [place] [address] [id number] Aug, Dental examination Z01.20 [facility] [address] [place] [address]- 2967 Aug, Post-traumatic stress disorder, unspecified F43.10 ; Open- angle glaucoma of both eyes H40.10X0 and Problems related to release from retirement Z65.2 [facility] [address] [place] [address]- 5050 Aug, [facility] [id number] [place] [address] 28923- 9256 Aug, Sleep apnea, obstructive G47.33 ; Obesity E66.9 ; Hyperlipidemia E78.5 ; Bilateral headaches R51 ; HTN (hypertension) I10 ; Post- traumatic stress disorder, unspecified F43.10 ; Anxiety F41.9 ; Neuropathy G62.9 ; Glaucoma H40.9 and Chronic pain G89.29 [facility] [id number] [place] [address] [id number] Aug, Encounter for dental examination Z01.20 [facility] [id number] [place] [address] 65112- 6888 Aug, Post-traumatic stress disorder, unspecified F43.10 ; Major depressive disorder, recurrent, moderate F33.1 and Problems related to release from retirement Z65.2 [facility] [address] [place] [address]- 6045 Aug, [facility] [id number] [place] [address] 59026- 2453 Jul, [facility] [id number] [place] [address] 11938- 8613 Jul, Post-traumatic stress disorder, unspecified F43.10 and Major depressive disorder, recurrent, moderate F33.1 [facility] [address] [place] [address] 01243- 4175 Jul, [facility] [address] [place] [address]- 5671 Jul, [facility] [id number] [place] [address] 74863- 2399 Jul, Chronic pain G89.29 [facility] [id number] [place] [address] 02627- 8603 June, Post-traumatic stress disorder, unspecified F43.10 and Major depressive disorder, recurrent, moderate F33.1 [facility] [id number] [place] [address] 33022- 2516 June, [facility] [id number] [place] [address] 84918- 7605 June, Chronic pain G89.29 [place] [id number] [place] [address] 64553- 9612 June, Post-traumatic stress disorder, unspecified F43.10 and Major depressive disorder, recurrent, moderate F33.1 [place] [id number] [place] [address] 05568- 8096 May, Post-traumatic stress disorder, unspecified F43.10 and Major depressive disorder, recurrent, moderate F33.1 [facility] [id number] [place] [address] 61999- 2836 May, [facility] [id number] [place] [address] 84560- 0430 May, [facility] [id number] [place] [address] 30903- 8252 May, [facility] [id number] [place] [address] 19854- 5433 Apr, [facility] [id number] [place] [address] 47909- 7413 Apr, Post-traumatic stress disorder, unspecified F43.10 and Sleep apnea, obstructive G47.33 [facility] [id number] [place] [address] 35213- 8908 Apr, [facility] [id number] [place] [address] 10785- 5184 Apr, Shoulder pain, left M25.512 [facility] [id number] [place] [address] 48394- 1249 Apr, Post-traumatic stress disorder, unspecified F43.10 and Major depressive disorder, recurrent, moderate F33.1 [facility] [id number] [place] [address] 29754- 2449 17 Apr, 2015 [facility] [id number] [place] [address] 23415- 9294 Apr, [facility] [id number] [place] [address] 65545- 1657 Apr, [facility] [id number] [place] [address] 69136- 8317 Apr, Left shoulder pain M25.512 [facility] [id number] [place] [address] 97889- 8033 Mar, [facility] [id number] [place] [address] 18247- 8471 Mar, [facility] [id number] [place] [address] 96667- 5642 Mar, [facility] [id number] [place] [address] 44647- 5274 12 Mar, 2015 Sleep apnea, obstructive G47.33 ; Obesity E66.9 ; Chronic pain G89.29 ; Hyperlipidemia E78.5 ; HTN (hypertension) I10 ; Blindness and low vision H54.10 ; Major depressive disorder, recurrent, moderate F33.1 and Anxiety F41.9 [facility] [id number] [place] [address] 41773- 4287 Mar, [facility] [id number] [place] [address] 89477- 9803 Mar, Post-traumatic stress disorder, unspecified F43.10 and Major depressive disorder, recurrent, moderate F33.1 [facility] [id number] [place] [address] 37952- 3198 Mar, [facility] [address] [phone]- 3895 Mar, HTN (hypertension) I10 ; Blindness and low vision H54.10 ; Obesity E66.9 ; Hyperlipidemia E78.5 ; Glaucoma H40.9 ; Chronic pain G89.29 and CAD (coronary artery disease) I25.10 [facility] [address] 97142- 9759 Feb, [facility] [address] 29042- 7712 Feb, Post-traumatic stress disorder, unspecified F43.10 ; Obesity E66.9 ; Sleep apnea, obstructive G47.33 and Open-angle glaucoma of both eyes H40.10X0 [address] 51402- 0570 Feb, Post-traumatic stress disorder, unspecified F43.10 and Major depressive disorder, recurrent, moderate F33.[address] 44160- 1947 Feb, [facility] [address] 21924- 2262 Feb, [address] 88215- 9756 Feb, HTN (hypertension) I10 ; Post-traumatic stress disorder, unspecified F43.10 ; Blindness and low vision H54.10 ; Obesity E66.9 ; Hyperlipidemia E78.5 ; Chronic pain G89.29 ; Glaucoma H40.9 ; Mitral valve prolapse I34.1 and Bilateral headaches R51 [facility] [address] 76101- 2244 Feb, [address] 34762- 1059 Feb, Post-traumatic stress disorder, unspecified F43.10 and Major depressive disorder, recurrent, moderate F33.1 [facility] [id number] [place] [address] 38478- 0029 Feb, [facility] [id number] [place] [address] 08451- 6015 Feb, [facility] [id number] [place] [address] 84818- 6791 Jan, [facility] [id number] [place] [address] 94215- 9226 Jan, [facility] [id number] [place] [address] 55087- 4438 Jan, Obesity E66.9 ; HTN (hypertension) I10 ; Blindness and low vision H54.10 ; Major depressive disorder, recurrent, moderate F33.1 ; Glaucoma H40.9 ; Hyperlipidemia E78.5 ; Sleep apnea, obstructive G47.33 ; Chronic pain G89.29 ; Anxiety F41.9 ; Chronic tension headaches G44.229 and Cough R05 [facility] [id number] [place] [address] 18470- 4164 Jan, [facility] [id number] [place] [address] 06878- 4238 Jan, [facility] [id number] [place] [address] 13335- 5463 Jan, Post-traumatic stress disorder, unspecified F43.10 ; Obesity E66.9 ; Sleep apnea, obstructive G47.33 and Open-angle glaucoma of both eyes H40.10X0 [facility] [id number] [place] [address] 50569- 0257 Jan, [facility] [id number] [place], [place] [address]- 6542 Jan, Post-traumatic stress disorder, unspecified F43.10 and Major depressive disorder, recurrent, moderate F33.1 [facility] [id number] [place] [address] 72651- 4638 Dec, [facility] [id number] [place] [address] 76665- 7613 Dec, Sleep apnea, obstructive G47.33 ; Obesity E66.9 ; Hyperlipidemia E78.5 ; Glaucoma H40.9 ; Chronic pain G89.29 ; HTN (hypertension ) I10 ; Blindness and low vision H54.10 ; Anxiety F41.9 and CAD (coronary artery disease) I25.10 [facility] [address] 49760- 7609 Nov, [facility] [address] 11131- 2259 Nov, [facility] [id number] [place] [address] 02844- 0775 Nov, [facility] [address] [address] 23669- 0384 Nov, [facility] [id number] [place] [address] 01333- 0259 Nov, [facility] [address] [place] [id number] [place] [address] 69689- 3125 Nov, Encounter for immunization Z23 ; Sleep apnea, obstructive G47.33 ; Obesity E66.9 ; Hyperlipidemia E78.5 ; Glaucoma H40.9 ; Chronic pain G89.29 ; Anxiety F41.9 ; Chronic tension headaches G44.229 and HTN (hypertension ) I10 [facility] [id number] [place] [address] 41547- 8353 Nov, [facility] [address] 03646- 3261 Nov, [facility] [address] 40817- 5765 Nov, Dizziness R42 [facility] [id number] [place] [address] 37173- 7456 Nov, [facility] [address] [address]- 2999 Oct, [facility] [id number] [place] [address] 76931- 4438 Oct, [facility] [id number] [place] [address] 54031- 2758 Oct, [facility] [id number] [place] [address] 19790- 3650 Oct, [facility] [id number] [place] [address] 26072- 1358 Oct, Dizziness 780.4 ; Essential hypertension 401.9 ; Obesity 278.00 ; Hyperlipidemia 272.4 ; Chronic pain 338.29 ; Glaucoma 365.9 and Anxiety 300.00 [facility] [id number] [place] [address] 49282- 2195 Oct, Essential hypertension 401.9 ; Hyperlipidemia 272.4 ; Glaucoma 365.9 ; Obesity 278.00 ; Chronic pain 338.29 and Allergy to insects V15.06 [facility] [id number] [place] [address] 55595- 9486 Sep, [facility] [id number] [place] [address] 16525- 6318 Sep, [facility] [address] [place] [address]- 2271 Sep, [facility] [id number] [place] [address] 45239- 3367 Sep, [facility] [id number] [place] [address] 74744- 8451 Aug, Essential hypertension 401.9 ; Obesity 278.00 ; Hyperlipidemia 272.4 ; Glaucoma 365.9 ; Lipoma 214.9 ; Mitral valve prolapse 424.0 ; Angina at rest 413.9 ; Lymphedema 457.1 and Chronic pain 338.29 IMMUNIZATIONS No Known Immunizations SOCIAL HISTORY Never Assessed REASON FOR VISIT PLAN OF CARE VITAL SIGNS MEDICATIONS Medication Instructions Dosage Frequency Start Date End Date Duration Status Cristhian WOODY 4 MG Orally every 8 hrs prn 1 tablet on the tongue and allow to dissolve Apr, Active RESULTS No Results PROCEDURES No [...]
--- OUTSIDE RECORDS SUMMARY | 2018-02-04 15:08 | XMS REPORT ---
Author Author CJ EDGE Organization [facility] Address [address] [place] [address] Care Team Providers Care Pastry Chef Name Role Phone CJ EDGE Unavailable PROBLEMS Type Condition ICD9-CM Code RYV81-UD Code Onset Dates Condition Status SNOMED Code Problem Arrhythmia as indication for cardiac pacemaker replacement I49.9 Active 29070786 Problem Body mass index (BMI) of 40.0-44.9 in adult Z68.41 Active 498794185 Problem Primary insomnia F51.01 Active 2104922 Problem Sarcoidosis D86.9 Active 95158300 Problem Chronic pain G89.29 Active 94102856 Problem Chronic pain syndrome G89.4 Active 473373752 Problem Sleep apnea, obstructive G47.33 Active 60006481 Problem Hyperlipidemia E78.5 Active 74242871 Problem Other male erectile dysfunction N52.8 Active 865697933 Problem Morbid (severe) obesity due to excess calories E66.01 Active 760753863 Problem Migraine without aura and without status migrainosus, not intractable G43.009 Active 115284843 Problem Sarcoma C49.9 Active 643775968 Problem Chronic tension headaches G44.229 Active 918927984 Problem Anxiety F41.9 Active 84170323 Problem HTN (hypertension) I10 Active 90989799 Problem Blindness and low vision H54.10 Active 942628389 Problem Mitral valve prolapse I34.1 Active 105302433 Problem CAD (coronary artery disease) I25.10 Active 00647802 Problem Major depressive disorder, recurrent, moderate F33.1 Active 04734776 Problem Post-traumatic stress disorder, chronic F43.12 Active 023461079 Problem Myocarditis, unspecified chronicity, 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 [id number] [address] Jul, [facility] [address], [place] [address] Jul, [facility] [address] [address] June, [facility] [id number] [place] [address] 73239- 1431 June, Sarcoidosis D86.9 [facility] [id number] [place] [address] 20385- 1758 June, [facility] [id number] [place] [address] 07301- 7671 June, [facility] [id number] [place] [address] 12111- 8069 June, Left leg pain M79.605 [facility] [id number] [place] [address] 90921- 2311 May, [facility] [id number] [place] [address] 82114- 8027 May, [facility] [id number] [place] [address] 45181- 4781 May, [facility] [address] [address] 9812 May, Left leg pain M79.605 [facility] [id number] [place] [address] 33686- 4306 May, Post-traumatic stress disorder, unspecified F43.10 ; Major depressive disorder, recurrent, moderate F33.1 and Problems related to release from half-way Z65.2 [facility] [address], [place] [address] May, Chronic pain G89.29 ; Anxiety F41.9 and Chest pain, unspecified type R07.9 [facility] [id number] [place] [address] 31359- 9443 30 Apr, 2017 [facility] [address] 10084- 4263 Apr, Left leg pain M79.605 [facility] [address] 02969- 5301 Apr, Post-traumatic stress disorder, unspecified F43.10 ; Problems related to release from half-way Z65.2 ; Anxiety F41.9 and BMI 40.0-44.9 , adult Z68.41 [facility] [address] 09853- 1817 Apr, [facility] [address] 77354- 1066 Apr, Left leg pain M79.605 [facility] [address] 30911- 0488 13 Apr, 2017 Post-traumatic stress disorder, unspecified F43.10 ; Major depressive disorder, recurrent, moderate F33.1 and Problems related to release from half-way Z65.2 [facility] [address] 18422- 4516 Apr, 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 [id number] [place] [address] 91756- 4237 02 Apr, 2017 Left leg pain M79.605 [facility] [address] [id number] Mar, Dental examination Z01.20 [facility] [id number] [place] [address] 53822- 1100 Mar, [facility] [id number] [place] [address] 75686 -1288 Mar, Cough R05 ; Viral gastroenteritis A08.4 and BMI 40.0-44.9, adult Z68.41 [place] [id number] [place] [address] 66568- 0511 Mar, Left leg pain M79.605 [place] [address] 50499- 2239 Mar, Post-traumatic stress disorder, unspecified F43.10 ; Major depressive disorder, recurrent, moderate F33.1 and Problems related to release from half-way Z65.2 [place] [id number] [place] [address] 36787- 7423 Feb, Left leg pain M79.605 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 [id number] [place] [address] 42382- 5250 Feb, Left leg pain M79.605 [facility] [id number] [place] [address] 69945- 3356 27 Jan, 2017 Post-traumatic stress disorder, unspecified F43.10 ; Major depressive disorder, recurrent, moderate F33.1 and Problems related to release from half-way Z65.2 [facility] [id number] [place] [address] 18341- 6052 Jan, [facility] [id number] [place] [address] 46474- 8492 Jan, [facility] [id number] [place] [address] 61292- 7099 Jan, Anxiety F41.9 [facility] [id number] [place] [address] 97548- 5831 Jan, Left leg pain M79.605 [facility] [id number] [place] [address] 987950- 1626 Dec, Left leg pain M79.605 [facility] [id number] [place] [address] 51814- 9116 Dec, [facility] [id number] [place] [address] 10299- 2038 Dec, Post-traumatic stress disorder, unspecified F43.10 ; Major depressive disorder, recurrent, moderate F33.1 and Problems related to release from half-way Z65.2 [facility] [id number] [place] [address] 83477- 2617 Nov, Chronic pain G89.29 and Anxiety F41.9 [facility] [id number] [place] [address] 51051- 9809 24 Nov, 2016 Chronic pain G89.29 and Anxiety F41.9 [facility] [id number] [place] [address] 02134- 1975 16 Nov, 2016 Post-traumatic stress disorder, unspecified F43.10 ; Major depressive disorder, recurrent, moderate F33.1 and Problems related to release from half-way Z65.2 [place] [id number] [place] [address] 64918- 6211 09 Nov, 2016 Other abnormal findings in specimens from other organs, systems and tissues R89.8 ; Other male erectile dysfunction N52.8 ; Body mass index (BMI) of 40.0-44.9 in adult Z68.41 and Morbid (severe) obesity due to excess calories E66.[address] 8[address]00- 2849 02 Nov, 2016 Post-traumatic stress disorder, unspecified F43.10 ; Major depressive disorder, recurrent, moderate F33.1 and Problems related to release from half-way Z65.2 [facility] [id number] Oct, Dental examination Z01.20 [id number] [place] [address] 14198- 1920 Oct, [address] 19113- 5638 Oct, Encounter for immunization Z23 [place] [id number] [place] [address] 89393- 4703 Oct, Chronic pain G89.29 ; Anxiety F41.9 ; Arrhythmia as indication for cardiac pacemaker replacement I49.9 and Glaucoma H40.9 [id number] [place] [address] 10809- 7080 Oct, Anxiety F41.9 ; Post-traumatic stress disorder, chronic F43.12 and Problems related to release from half-way Z65.2 [place] [id number] [place] [address] 06498- 8490 07 Oct, 2016 Post-traumatic stress disorder, unspecified F43.10 ; Major depressive disorder, recurrent, moderate F33.1 and Problems related to release from half-way Z65.2 [place] [facility] [address], [place] [address]- 2895 Sep, Chronic pain G89.29 and Anxiety F41.9 [place] [id number] [place] [address] 60216- 0099 Sep, Post-traumatic stress disorder, unspecified F43.10 ; Major depressive disorder, recurrent, moderate F33.1 and Problems related to release from half-way Z65.2 [place] [id number] [place] [address] 01830- 9191 Sep, Post-traumatic stress disorder, unspecified F43.10 ; Major depressive disorder, recurrent, moderate F33.1 and Problems related to release from half-way Z65.2 [place] [id number] [place] [address] 69997- 1915 Sep, Chronic pain G89.29 [place] [id number] [place] [address] 72011- 8100 Aug, Dental caries, unspecified K02.9 [place] [id number] [place] [address] 75849- 3403 Aug, Sleep apnea, obstructive G47.33 ; Obesity E66.9 ; Chronic pain G89.29 ; HTN (hypertension) I10 ; Major depressive disorder, recurrent, moderate F33.1 ; Anxiety F41.9 ; Chronic tension headaches G44.229 ; Mitral valve prolapse I34.1 ; Arrhythmia as indication for cardiac pacemaker replacement I49.9 ; Dental caries, unspecified K02.9 ; Primary insomnia F51.01 and Hyperlipidemia E78.5 [place] [id number] [place] [address] 79532- 0363 Aug, Post-traumatic stress disorder, unspecified F43.10 ; Major depressive disorder, recurrent, moderate F33.1 and Problems related to release from half-way Z65.2 [place] [id number] [place] [address] 07514- 6855 Aug, Dental examination Z01.20 [facility] [id number] [address] 13 Aug, 2016 Dental examination Z01.20 [facility] [id number] [place] [address] 90306- 4684 06 Aug, 2016 Post-traumatic stress disorder, unspecified F43.10 ; Major depressive disorder, recurrent, moderate F33.1 and Problems related to release from half-way Z65.2 [facility] [id number] [place] [address] 32592- 0028 05 Aug, 2016 Chronic pain G89.29 and Primary insomnia F51.01 [place] [id number] [place] [address] 40367- 1706 Jul, [place] [id number] [place] [address] 24866- 9709 Jul, [place] [id number] [place] [address] 55821- 5801 Jul, Nausea R11.0 [place] [id number] [place] [address] 78763- 1167 Jul, Arrhythmia as indication for cardiac pacemaker replacement I49.9 [facility] [id number] [place] [address] 50696- 4322 Jul, Post-traumatic stress disorder, unspecified F43.10 ; Major depressive disorder, recurrent, moderate F33.1 and Problems related to release from half-way Z65.2 [facility] [id number] [place] [address] 74221- 5237 09 Jul, 2016 Anxiety F41.9 [place] [id number] [place] [address] 75627- 8831 08 Jul, 2016 Chronic pain G89.29 [facility] [address] [place] [address] 09485- 8231 Jul, Sleep apnea, obstructive G47.33 ; Hyperlipidemia E78.5 ; Chronic pain G89.29 ; Blindness and low vision H54.10 ; Major depressive disorder, recurrent, moderate F33.1 ; Anxiety F41.9 ; Mitral valve prolapse I34.1 ; Arrhythmia as indication for cardiac pacemaker replacement I49.9 ; Primary insomnia F51.01 ; Bilateral headaches R51 and Environmental allergies Z91.09 [place] [id number] [place] [address] 35581- 2034 Jul, Post-traumatic stress disorder, unspecified F43.10 ; Major depressive disorder, recurrent, moderate F33.1 and Problems related to release from half-way Z65.2 [place] [id number] [place] [address] 04484- 9220 June, Post-traumatic stress disorder, chronic F43.12 ; Anxiety F41.9 ; Problems related to release from half-way Z65.2 ; Sleep apnea, obstructive G47.33 and Primary insomnia F51.01 [place] [id number] [place] [address] 92323- 1397 June, [place] [id number] [place] [address] 37971- 9727 June, [place] [id number] [place] [address] 36111- 8079 June, [place] [id number] [place] [address] 62163- 5501 June, Chronic pain G89.29 [place] [id number] [place] [address] 22373- 9943 June, Chronic pain G89.29 [place] [id number] [place] [address] 63533- 2629 June, Lipoma of left lower extremity D17.24 ; Open wound T14.8 and Swelling of left lower extremity M79.89 [place] [id number] [place] [address] 74634- 6688 June, Post-traumatic stress disorder, unspecified F43.10 ; Major depressive disorder, recurrent, moderate F33.1 and Problems related to release from half-way Z65.2 [place] [address], [place] [address]- 4522 May, Lipoma of left lower extremity D17.24 ; Major depressive disorder, recurrent, moderate F33.1 ; Sleep apnea, obstructive G47.33 ; Hyperlipidemia E78.5 ; Obesity E66.9 ; HTN (hypertension) I10 ; Glaucoma H40.9 ; CAD (coronary artery disease) I25.10 ; Chronic tension headaches G44.229 ; Chronic pain G89.29 ; Anxiety F41.9 ; Nausea R11.0 and Primary insomnia F51.01 [place] [id number] [place] [address] 65311- 4469 May, [id number] [place] [address] 64318- 7891 May, Chronic pain G89.29 [id number] [place] [address] 60543- 2466 May, [place] [id number] [place] [address] 92873- 5528 Apr, Post-traumatic stress disorder, unspecified F43.10 ; Major depressive disorder, recurrent, moderate F33.1 and Problems related to release from half-way Z65.2 [place] [id number] [place] [address] 03672- 2363 Apr, Primary insomnia F51.01 ; Post-traumatic stress disorder, chronic F43.12 and Problems related to release from half-way Z65.2 [place] [id number] [place] [address] 06032- 3259 Apr, Post-traumatic stress disorder, unspecified F43.10 ; Major depressive disorder, recurrent, moderate F33.1 and Problems related to release from half-way Z65.2 [place] [id number] [place] [address] 06789- 2831 Apr, [id number] [place] [address] 24304- 1751 Apr, Sleep apnea, obstructive G47.33 ; Chronic pain G89.29 ; HTN (hypertension) I10 ; Mitral valve prolapse I34.1 ; Shoulder pain, left M25.512 ; Arrhythmia as indication for cardiac pacemaker replacement I49.9 ; Glaucoma H40.9 ; Bilateral headaches R51 ; Environmental allergies Z91.09 ; Primary insomnia F51.01 and Nausea R11.0 [place] [id number] [place] [address] 45353- 6923 15 Apr, 2016 [place] [address] 82367- 5520 15 Apr, 2016 [place] [id number] [place] [address] 03529- 6143 Apr, Post-traumatic stress disorder, unspecified F43.10 ; Major depressive disorder, recurrent, moderate F33.1 and Problems related to release from half-way Z65.2 [place] [id number] [place] [address] 07647- 4150 07 Apr, 2016 HTN (hypertension) I10 [place] [id number] [place] [address] 50357- 0963 07 Apr, 2016 HTN (hypertension) I10 [place] [id number] [place] [address] 82406- 9760 14 Mar, 2016 Chronic pain G89.29 ; Primary insomnia F51.01 and Problems related to release from half-way Z65.2 [place] [id number] [place] [address] 10347- 1770 07 Mar, 2016 Post-traumatic stress disorder, unspecified F43.10 ; Major depressive disorder, recurrent, moderate F33.1 and Problems related to release from half-way Z65.2 [place] [id number] [place] [address] 09063- 2680 Feb, Post-traumatic stress disorder, unspecified F43.10 ; Major depressive disorder, recurrent, moderate F33.1 and Problems related to release from half-way Z65.2 [place] [id number] [place] [address] 69268- 3864 Feb, Chronic tension headaches G44.229 [facility] [id number] [place] [address] 44602- 2392 17 Feb, 2016 Sleep apnea, obstructive G47.33 [...] pacemaker replacement I49.9 and Primary insomnia F51.01 [place] [address] 75198- 5234 17 Feb, 2016 Post-traumatic stress disorder, unspecified F43.10 and Chronic pain G89.[address] 33072- 0199 Feb, [facility] [address] [id number] Feb, Dental caries K02.[address] 27728- 0015 06 Feb, 2016 [place] [id number] [place] [address] 52557- 2693 Feb, Post-traumatic stress disorder, unspecified F43.10 ; Major depressive disorder, recurrent, moderate F33.1 and Problems related to release from half-way Z65.2 [place] [id number] [place] [address] 21006- 5042 Jan, Sleep apnea, obstructive G47.33 and Chronic pain G89.[address] 96945- 5796 Jan, [place] [address] 66142- 6743 14 Jan, 2016 Dental examination Z01.20 [place] [address] [address]- 6397 Jan, [place] [id number] [place] [address] 44413- 2644 Jan, [place] [id number] [place] [address] 91236- 5443 Dec, Post-traumatic stress disorder, unspecified F43.10 ; Major depressive disorder, recurrent, moderate F33.1 and Problems related to release from half-way Z65.2 [place] [id number] [place] [address] 90902- 3220 Dec, Encounter for immunization Z23 ; Problems related to release from half-way Z65.2 ; Sleep apnea, obstructive G47.33 and Post-traumatic stress disorder, chronic F43.12 [id number] [place] [address] 35053- 6055 Dec, Sleep apnea, obstructive G47.33 ; Hyperlipidemia E78.5 ; Chronic pain G89.29 ; Glaucoma H40.9 ; HTN (hypertension) I10 ; Post-traumatic stress disorder, unspecified F43.10 ; Anxiety F41.9 ; Chronic tension headaches G44.229 ; Mitral valve prolapse I34.1 and CAD (coronary artery disease) I25.10 [place] [address] [place] [address] 26437- 5224 Dec, Post-traumatic stress disorder, unspecified F43.10 ; Major depressive disorder, recurrent, moderate F33.1 and Problems related to release from half-way Z65.2 [place] [address] [address]- 9108 Nov, Chronic pain G89.29 [id number] [place] [address] 60124- 0603 Nov, Post-traumatic stress disorder, unspecified F43.10 ; Major depressive disorder, recurrent, moderate F33.1 and Problems related to release from half-way Z65.2 [place] [id number] [place] [address] 74465- 1174 Oct, [facility] [address] [address]- 6559 Oct, [facility] [id number] [place] [address] 03615- 2264 Oct, Post-traumatic stress disorder, unspecified F43.10 ; Major depressive disorder, recurrent, moderate F33.1 and Problems related to release from half-way Z65.2 [facility] [id number] [place] [address] [phone] 08 Oct, 2015 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 [id number] [place] [phone] Sep, [facility] [id number] [place] [phone] [address]70 Sep, Post-traumatic stress disorder, unspecified F43.10 ; Major depressive disorder, recurrent, moderate F33.1 and Problems related to release from half-way Z65.2 [facility] [id number] [place] [id number] Sep, Chronic pain G89.29 [facility] [id number] [address] Sep, Pain in left shoulder M25.512 ; Pain in right shoulder M25.511 and Other chronic pain G89.29 [facility] [address] [id number] [address] Sep, [facility] [id number] [place] [address] 09750- 6911 Sep, [facility] [id number] [address] Sep, [facility] [id number] [place] [id number] Aug, Dental examination Z01.20 [facility] [id number] [place] [address] 21963- 6226 Aug, Post-traumatic stress disorder, unspecified F43.10 ; Open- angle glaucoma of both eyes H40.10X0 and Problems related to release from half-way Z65.2 [facility] [id number] [place] [address] 67361- 4664 Aug, [facility] [id number] [place] [address] 11784- 4736 Aug, Sleep apnea, obstructive G47.33 ; Obesity E66.9 ; Hyperlipidemia E78.5 ; Bilateral headaches R51 ; HTN (hypertension) I10 ; Post- traumatic stress disorder, unspecified F43.10 ; Anxiety F41.9 ; Neuropathy G62.9 ; Glaucoma H40.9 and Chronic pain G89.29 [facility] [id number] [place] [address] [id number] Aug, Encounter for dental examination Z01.20 [facility] [id number] [place] [address] 69114- 5067 Aug, Post-traumatic stress disorder, unspecified F43.10 ; Major depressive disorder, recurrent, moderate F33.1 and Problems related to release from half-way Z65.2 [facility] [id number] [address] Aug, [facility] [id number] [place] [address] 29516- 3747 Jul, [facility] [id number] [place] [address] 59422- 2437 Jul, Post-traumatic stress disorder, unspecified F43.10 and Major depressive disorder, recurrent, moderate F33.1 [facility] [id number] [place] [address] 92965- 9546 Jul, [facility] [id number] [place] [address] 68015- 9138 Jul, [facility] [id number] [place] [address] 74231- 6235 Jul, Chronic pain G89.29 [facility] [id number] [place] [address] 197404- 0138 June, Post-traumatic stress disorder, unspecified F43.10 and Major depressive disorder, recurrent, moderate F33.1 [facility] [id number] [place] [address] 51195- 1608 June, [facility] [id number] [place] [address] 77384- 8299 June, Chronic pain G89.29 [facility] [id number] [place] [address] 69405- 1748 June, Post-traumatic stress disorder, unspecified F43.10 and Major depressive disorder, recurrent, moderate F33.1 [facility] [id number] [place] [address] 58577- 9905 May, Post-traumatic stress disorder, unspecified F43.10 and Major depressive disorder, recurrent, moderate F33.1 [facility] [id number] [place] [address] 34632- 2409 May, [facility] [id number] [place] [address] 33163- 3330 May, [facility] [id number] [place] [address] 92785- 3089 May, [facility] [id number] [place] [address] 32687- 8802 Apr, [facility] [id number] [place] [address] 97953- 8469 Apr, Post-traumatic stress disorder, unspecified F43.10 and Sleep apnea, obstructive G47.33 [facility] [id number] [place] [address] 56432- 0316 Apr, [facility] [id number] [place] [address] 51275- 4022 Apr, Shoulder pain, left M25.512 [facility] [id number] [place] [address] 93909- 8893 Apr, Post-traumatic stress disorder, unspecified F43.10 and Major depressive disorder, recurrent, moderate F33.1 [facility] [id number] [place] [address] 39436- 4210 17 Apr, 2015 [facility] [id number] [place] [address] 78821- 8242 Apr, [facility] [id number] [place] [address] 33038- 8778 Apr, [facility] [id number] [place] [address] 12458- 5150 Apr, Left shoulder pain M25.512 [facility] [id number] [place] [address] 87386- 8062 Mar, [facility] [id number] [place] [address] 19805- 6832 Mar, [facility] [id number] [place] [address] 27284- 4859 Mar, [facility] [id number] [place] [address] 90627- 8696 Mar, Sleep apnea, obstructive G47.33 ; Obesity E66.9 ; Chronic pain G89.29 ; Hyperlipidemia E78.5 ; HTN (hypertension) I10 ; Blindness and low vision H54.10 ; Major depressive disorder, recurrent, moderate F33.1 and Anxiety F41.9 [facility] [id number] [place] [address] 43267- 1911 Mar, [facility] [id number] [place] [address] 94746- 2527 Mar, Post-traumatic stress disorder, unspecified F43.10 and Major depressive disorder, recurrent, moderate F33.1 [facility] [id number] [place] [address] 65944- 6147 Mar, [facility] [id number] [place] [address] Mar, HTN (hypertension) I10 ; Blindness and low vision H54.10 ; Obesity E66.9 ; Hyperlipidemia E78.5 ; Glaucoma H40.9 ; Chronic pain G89.29 and CAD (coronary artery disease) I25.10 [facility] [id number] [place] [address] 53645- 1075 Feb, [facility] [address] 08030- 0079 Feb, Post-traumatic stress disorder, unspecified F43.10 ; Obesity E66.9 ; Sleep apnea, obstructive G47.33 and Open-angle glaucoma of both eyes H40.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 [facility] [id number] [place] [address] 04858- 8607 Feb, Post-traumatic stress disorder, unspecified F43.10 and Major depressive disorder, recurrent, moderate F33.1 [facility] [id number] [place] [address] 95211- 1493 Feb, [facility] [id number] [place] [address] 74133- 7548 Feb, [place] [id number] [place] [address] 723020- 5319 Feb, HTN (hypertension) I10 ; Post-traumatic stress disorder, unspecified F43.10 ; Blindness and low vision H54.10 ; Obesity E66.9 ; Hyperlipidemia E78.5 ; Chronic pain G89.29 ; Glaucoma H40.9 ; Mitral valve prolapse I34.1 and Bilateral headaches R51 [facility] [id number] [place] [address] 55526- 1964 Feb, [facility] [address] [place] [address]- 7142 Feb, Post-traumatic stress disorder, unspecified F43.10 and Major depressive disorder, recurrent, moderate F33.1 [place] [address] 76955- 5173 Feb, [facility] [address] 59005- 0568 Feb, [facility] [address] 719569- 6921 Jan, [place] [address] 35856- 5122 Jan, [place] [facility] [address] 30548- 7433 Jan, Obesity E66.9 ; HTN (hypertension) I10 ; Blindness and low vision H54.10 ; Major depressive disorder, recurrent, moderate F33.1 ; Glaucoma H40.9 ; Hyperlipidemia E78.5 ; Sleep apnea, obstructive G47.33 ; Chronic pain G89.29 ; Anxiety F41.9 ; Chronic tension headaches G44.229 and Cough R05 [place] [facility] [address] 41734- 9316 Jan, [place] [facility] [address] 70753- 5078 Jan, [place] [address] 18522- 1687 Jan, Post-traumatic stress disorder, unspecified F43.10 ; Obesity E66.9 ; Sleep apnea, obstructive G47.33 and Open-angle glaucoma of both eyes H40.10X0 [place] [address] 91237- 0840 Jan, [place] [facility] [address] 65717- 5993 Jan, Post-traumatic stress disorder, unspecified F43.10 and Major depressive disorder, recurrent, moderate F33.1 [facility] [id number] [place] [address] 35919- 1456 Dec, [facility] [address] 89972- 2097 Dec, Sleep apnea, obstructive G47.33 ; Obesity E66.9 ; Hyperlipidemia E78.5 ; Glaucoma H40.9 ; Chronic pain G89.29 ; HTN (hypertension ) I10 ; Blindness and low vision H54.10 ; Anxiety F41.9 and CAD (coronary artery disease) I25.10 [facility] [address] 05364- 5548 Nov, [facility] [address] 51446- 3815 Nov, [facility] [address] 95901- 6717 Nov, [facility] [address] 19721- 4607 Nov, [facility] [address] 81245- 7509 Nov, [facility] [address] 63216- 7076 Nov, Encounter for immunization Z23 ; Sleep apnea, obstructive G47.33 ; Obesity E66.9 ; Hyperlipidemia E78.5 ; Glaucoma H40.9 ; Chronic pain G89.29 ; Anxiety F41.9 ; Chronic tension headaches G44.229 and HTN (hypertension ) I10 [facility] [id number] [place] [address] 54346- 3529 Nov, [facility] [address] [place] [address] 41749- 3562 Nov, [facility] [address] 92363- 9618 06 Nov, 2014 Dizziness R42 [facility] [address] [place] [address]- 6722 Nov, [facility] [address] 10776- 5528 Oct, [facility] [address] 53260- 8332 Oct, [facility] [address] 23308- 7982 Oct, [facility] [address] 80299- 7052 Oct, [facility] [address] 48119- 5518 Oct, Dizziness 780.4 ; Essential hypertension 401.9 ; Obesity 278.00 ; Hyperlipidemia 272.4 ; Chronic pain 338.29 ; Glaucoma 365.9 and Anxiety 300.00 [facility] [address] 35897- 7058 Oct, Essential hypertension 401.9 ; Hyperlipidemia 272.4 ; Glaucoma 365.9 ; Obesity 278.00 ; Chronic pain 338.29 and Allergy to insects V15.06 [facility] [id number] [place] [address] 68296- 0845 Sep, [facility] [id number] [place] [address] 55926- 5966 Sep, [facility] [id number] [place] [address] 57431- 2386 Sep, [facility] [id number] [place] [address] 81199- 4889 Sep, [facility] [address] 21732- 9621 Aug, Essential hypertension 401.9 ; Obesity 278.00 [...] patient &/family, 45 minutes, established patient Nov 23, 2016 INSTRUCTIONS MEDICATIONS ADMINISTERED No Known Medications [...]
--- OUTSIDE RECORDS SUMMARY | 2018-02-04 15:08 | XMS REPORT ---
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 Name Role Phone EDUIN CARDONA Unavailable PROBLEMS Type Condition ICD9-CM Code SMA59-SN Code Onset Dates Condition Status SNOMED Code Problem CAD (coronary artery disease) I25.10 Active 94171718 Problem Encounter for dental examination Z01.20 Active 551133600 Problem Shoulder pain, left M25.512 Active 92470087 Problem Post-traumatic stress disorder, unspecified F43.10 Active 68110900 Problem Obesity E66.9 Active 629977310 Problem Arrhythmia as indication for cardiac pacemaker replacement I49.9 Active 76386496 Problem Hyperlipidemia E78.5 Active 79702118 Problem Glaucoma H40.9 Active 35638468 Problem Post-traumatic stress disorder, chronic F43.12 Active 087793664 Problem Bilateral headaches R51 Active 318331315 Problem Primary insomnia F51.01 Active 5987478 Problem Environmental allergies Z91.09 Active 988215290 Problem 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 Active 471013053 Problem HTN (hypertension) I10 Active 51414651 Problem Sleep apnea, obstructive G47.33 Active 50359186 Problem Problems related to release from halfway Z65.2 Active 16492798 Problem Anxiety F41.9 Active 17609456 Problem Major depressive disorder, recurrent, moderate F33.1 Active 32845371 Problem Cough R05 Active 91107951 Problem Open-angle glaucoma of both eyes H40.10X0 Active 98080276 Problem Chronic pain G89.29 Active 24292407 Problem Chronic tension headaches G44.229 Active 931318270 Problem Mitral valve prolapse I34.1 Active 840928580 ALLERGIES Unknown Allergies SOCIAL HISTORY No smoking Hx information available PLAN OF CARE VITAL SIGNS MEDICATIONS Medication Instructions Dosage Frequency Start Date End Date Duration Status Xanax 1 MG Orally for anxiety 1/2 tab in AM and 1 tab at bedtime Feb, 28 days Active Ambien 10 mg Orally Once at bedtime for sleep 1/2 to 1 tablet Jan, 28 days Active Hydrocodone-Acetaminophen 7.5-325 MG Orally every 6 hrs 1 tablet as needed 6h Dec, 28 days Active RESULTS No Results PROCEDURES No Known procedures IMMUNIZATIONS No Known Immunizations
--- OUTSIDE RECORDS SUMMARY | 2018-02-04 15:09 | XMS REPORT ---
Author Author DALJIT DAMON Organization [facility] Address [address] [place] [address] Care Team Providers Care Recoater Name Role Phone MARISOLLILIA Unavailable PROBLEMS Type Condition ICD9-CM Code MNB92-AS Code Onset Dates Condition Status SNOMED Code Problem Environmental allergies Z91.09 Active 210490949 Problem Primary insomnia F51.01 Active 2315409 Problem Arrhythmia as indication for cardiac pacemaker replacement I49.9 Active 40523706 Problem Chronic pain syndrome G89.4 Active 449023473 Problem Sleep apnea, obstructive G47.33 Active 98033691 Problem Migraine without aura and without status migrainosus, not intractable G43.009 Active 197968059 Problem Hyperlipidemia E78.5 Active 55600689 Problem Myocarditis, unspecified chronicity, 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 Active 36639085 Problem Other male erectile dysfunction N52.8 Active 272145292 Problem Morbid (severe) obesity due to excess calories E66.01 Active 516761310 Problem 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 Active 367203587 Problem Body mass index (BMI) of 40.0-44.9 in adult Z68.41 Active 722821991 Problem Blindness and low vision H54.10 Active 648618420 Problem Chronic tension headaches G44.229 Active 825481148 Problem Chronic pain G89.29 Active 08854093 Problem HTN (hypertension) I10 Active 92800845 Problem Open-angle glaucoma of both eyes H40.10X0 Active 10932447 Problem Mitral valve prolapse I34.1 Active 393695965 Problem Anxiety F41.9 Active 63914699 Problem CAD (coronary artery disease) I25.10 Active 63256978 Problem Major depressive disorder, recurrent, moderate F33.1 Active 85922846 Problem Post-traumatic stress disorder, chronic F43.12 Active 589404433 ALLERGIES Substance Reaction Event Type Date Status Xalatan upper lid irritation Drug Allergy Oct, Active Penicillin G Potassium rash Drug Allergy Oct, Active Aspirin nausea and vomiting Drug Allergy Oct, Active bandaides blisters Non Drug Allergy Oct, Active Wasp venom anaphylaxis Non Drug Allergy Oct, Active ENCOUNTERS Encounter Location Date Diagnosis [facility] [id number] [place] [address] 42962- 5938 Jul, [facility] [id number] [place] [address] 74539- 3787 Jul, [facility] [address] 51371- 8721 June, [facility] [address] 73024- 9008 June, [facility] [address] 03249- 1694 June, Left leg pain M79.605 [facility] [address] 93333- 4368 May, [facility] [id number] [place] [address] 33628- 2279 May, [facility] [id number] [place] [address] 99421- 6448 May, [facility] [id number] [place] [address] 71508- 0027 May, Left leg pain M79.605 [facility] [id number] [place] [address] 38501- 6484 May, Post-traumatic stress disorder, unspecified F43.10 ; Major depressive disorder, recurrent, moderate F33.1 and Problems related to release from halfway Z65.2 [facility] [id number] [place] [address] 96805- 8665 May, Chronic pain G89.29 ; Anxiety F41.9 and Chest pain, unspecified type R07.9 [facility] [id number] [place] [address] 96430- 8269 Apr, [facility] [id number] [place] [address] 79683- 2399 Apr, Left leg pain M79.605 [facility] [address] 18075- 2546 27 Apr, 2017 Post-traumatic stress disorder, unspecified F43.10 ; Problems related to release from halfway Z65.2 ; Anxiety F41.9 and BMI 40.0-44.9 , adult Z68.41 [facility] [address] 05632- 1303 Apr, [facility] [address] 26732- 2219 Apr, Left leg pain M79.605 [facility] [address] 99500- 1371 13 Apr, 2017 Post-traumatic stress disorder, unspecified F43.10 ; Major depressive disorder, recurrent, moderate F33.1 and Problems related to release from halfway Z65.2 [facility] [id number] [place] [address] 97930- 3053 Apr, [facility] [address] 38327- 9609 12 Apr, 2017 Chronic pain G89.29 ; 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 [address] [id number] Mar, Dental examination Z01.20 [facility] [id number] [place] [address] 53801- 9301 Mar, [facility] [address] 23334 -4568 Mar, Cough R05 ; Viral gastroenteritis A08.4 and BMI 40.0-44.9, adult Z68.41 [facility] [address] 45969- 9907 Mar, Left leg pain M79.605 [facility] [address] 51144- 9530 Mar, Post-traumatic stress disorder, unspecified F43.10 ; Major depressive disorder, recurrent, moderate F33.1 and Problems related to release from halfway Z65.2 [facility] [address] 64809- 5168 Feb, Left leg pain M79.605 [facility] [address] 62872- 0289 Feb, [facility] [address] 39708- 5763 Feb, BMI 40.0-44.9, adult Z68.41 ; Chronic pain syndrome G89.4 ; Migraine without aura and without status migrainosus, not intractable G43.009 ; Mitral valve prolapse I34.1 and 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 [facility] [address] 54418- 7996 Feb, Post-traumatic stress disorder, chronic F43.12 ; Anxiety F41.9 ; Problems related to release from halfway Z65.2 and BMI 40.0-44.9, adult Z68.41 [facility] [address] 28968- 2987 Feb, Post-traumatic stress disorder, unspecified F43.10 ; Major depressive disorder, recurrent, moderate F33.1 and Problems related to release from halfway Z65.2 [facility] [address] [place] [address] 42340- 4818 Feb, Left leg pain M79.605 [facility] [id number] [place] [address] 67535- 6806 Jan, Post-traumatic stress disorder, unspecified F43.10 ; Major depressive disorder, recurrent, moderate F33.1 and Problems related to release from halfway Z65.2 [facility] [id number] [place] [address] 13401- 9162 Jan, [facility] [id number] [place] [address] 57764- 9035 Jan, [facility] [id number] [place] [address] 93993- 3003 Jan, Anxiety F41.9 [facility] [id number] [place] [address] 62933- 5021 Jan, Left leg pain M79.605 [facility] [id number] [place] [address] 13855- 7822 Dec, Left leg pain M79.605 [facility] [id number] [place] [address] 41502- 4377 Dec, [facility] [id number] [place] [address] 70380- 6564 Dec, Post-traumatic stress disorder, unspecified F43.10 ; Major depressive disorder, recurrent, moderate F33.1 and Problems related to release from halfway Z65.2 [facility] [id number] [place] [address] 67103- 9053 Nov, Chronic pain G89.29 and Anxiety F41.9 [facility] [id number] [place] [address] 50030- 0009 24 Nov, 2016 Chronic pain G89.29 and Anxiety F41.9 [facility] [id number] [place] [address] 40626- 3766 16 Nov, 2016 Post-traumatic stress disorder, unspecified F43.10 ; Major depressive disorder, recurrent, moderate F33.1 and Problems related to release from halfway Z65.2 [facility] [id number] [place] [address] 28691- 3888 09 Nov, 2016 Other abnormal findings in specimens from other organs, systems and tissues R89.8 ; Other male erectile dysfunction N52.8 ; Body mass index (BMI) of 40.0-44.9 in adult Z68.41 and Morbid (severe) obesity due to excess calories E66.01 [facility] [id number] [place] [address] 26852- 4785 02 Nov, 2016 Post-traumatic stress disorder, unspecified F43.10 ; Major depressive disorder, recurrent, moderate F33.1 and Problems related to release from halfway Z65.2 [facility] [id number] [place] [address] [id number] 29 Oct, 2016 Dental examination Z01.20 [facility] [id number] [place] [address] 11004- 2890 Oct, [facility] [id number] [place] [address] 25386- 9475 Oct, Encounter for immunization Z23 [address] [id number] [place] [address] 56548- 3212 Oct, Chronic pain G89.29 ; Anxiety F41.9 ; Arrhythmia as indication for cardiac pacemaker replacement I49.9 and Glaucoma H40.9 [facility] [id number] [place] [address] 41815- 1544 Oct, Anxiety F41.9 ; Post-traumatic stress disorder, chronic F43.12 and Problems related to release from halfway Z65.2 [facility] [id number] [place] [address] 54600- 1067 07 Oct, 2016 Post-traumatic stress disorder, unspecified F43.10 ; Major depressive disorder, recurrent, moderate F33.1 and Problems related to release from halfway Z65.2 [facility] [id number] [address]- 7612 Sep, Chronic pain G89.29 and Anxiety F41.9 [id number] [place] [address] 76491- 5480 Sep, Post-traumatic stress disorder, unspecified F43.10 ; Major depressive disorder, recurrent, moderate F33.1 and Problems related to release from halfway Z65.2 [id number] [place] [address] 63753- 9328 Sep, Post-traumatic stress disorder, unspecified F43.10 ; Major depressive disorder, recurrent, moderate F33.1 and Problems related to release from halfway Z65.2 [id number] [place] [address] 77371- 6915 Sep, Chronic pain G89.29 [id number] [place] [address] 97633- 8691 Aug, Dental caries, unspecified K02.[address] [place] [address] 18038- 9414 Aug, Sleep apnea, obstructive G47.33 ; Obesity E66.9 ; Chronic pain G89.29 ; HTN (hypertension) I10 ; Major depressive disorder, recurrent, moderate F33.1 ; Anxiety F41.9 ; Chronic tension headaches G44.229 ; Mitral valve prolapse I34.1 ; Arrhythmia as indication for cardiac pacemaker replacement I49.9 ; Dental caries, unspecified K02.9 ; Primary insomnia F51.01 and Hyperlipidemia E78.5 [address] [place] [address] 42463- 6165 Aug, Post-traumatic stress disorder, unspecified F43.10 ; Major depressive disorder, recurrent, moderate F33.1 and Problems related to release from halfway Z65.2 [address] [place] [address]- 9219 Aug, Dental examination Z01.20 [facility] [id number] [place] [address] [id number] Aug, Dental examination Z01.20 [facility] [id number] [place] [address] 09907- 5357 06 Aug, 2016 Post-traumatic stress disorder, unspecified F43.10 ; Major depressive disorder, recurrent, moderate F33.1 and Problems related to release from halfway Z65.2 [facility] [id number] [place] [address] 84148- 3830 Aug, Chronic pain G89.29 and Primary insomnia F51.01 [facility] [id number] [place] [address] 67974- 4773 Jul, [id number] [place] [address] 32920- 9143 Jul, [address] [id number] [place] [address] 24771- 7562 Jul, Nausea R11.0 [facility] [id number] [place] [address] 57257- 4173 Jul, Arrhythmia as indication for cardiac pacemaker replacement I49.9 [id number] [place] [address] 11499- 7083 Jul, Post-traumatic stress disorder, unspecified F43.10 ; Major depressive disorder, recurrent, moderate F33.1 and Problems related to release from halfway Z65.2 [facility] [id number] [place] [address] 71688- 7299 09 Jul, 2016 Anxiety F41.9 [facility] [id number] [place] [address] 99461- 2420 08 Jul, 2016 Chronic pain G89.29 [id number] [place] [address] 57618- 8939 Jul, Sleep apnea, obstructive G47.33 ; Hyperlipidemia E78.5 ; Chronic pain G89.29 ; Blindness and low vision H54.10 ; Major depressive disorder, recurrent, moderate F33.1 ; Anxiety F41.9 ; Mitral valve prolapse I34.1 ; Arrhythmia as indication for cardiac pacemaker replacement I49.9 ; Primary insomnia F51.01 ; Bilateral headaches R51 and Environmental allergies Z91.09 [place] [facility] [address] 09257- 4776 Jul, Post-traumatic stress disorder, unspecified F43.10 ; Major depressive disorder, recurrent, moderate F33.1 and Problems related to release from halfway Z65.2 [facility] [facility] [address] 19024- 8924 June, Post-traumatic stress disorder, chronic F43.12 ; Anxiety F41.9 ; Problems related to release from halfway Z65.2 ; Sleep apnea, obstructive G47.33 and Primary insomnia F51.01 [facility] [id number] [place] [address] 91417- 3041 June, [facility] [facility] [address] 85537- 7916 June, [facility] [facility] [address] 52192- 2639 June, [facility] [address] 65038- 1261 June, Chronic pain G89.29 [facility] [id number] [place] [address] 54677- 4349 June, Chronic pain G89.29 [facility] [id number] [place] [address] 49997- 2331 June, Lipoma of left lower extremity D17.24 ; Open wound T14.8 and Swelling of left lower extremity M79.[address] 38967- 1692 June, Post-traumatic stress disorder, unspecified F43.10 ; Major depressive disorder, recurrent, moderate F33.1 and Problems related to release from halfway Z65.2 [facility] [address] 27785- 2755 May, Lipoma of left lower extremity D17.24 ; Major depressive disorder, recurrent, moderate F33.1 ; Sleep apnea, obstructive G47.33 ; Hyperlipidemia E78.5 ; Obesity E66.9 ; HTN (hypertension) I10 ; Glaucoma H40.9 ; CAD (coronary artery disease) I25.10 ; Chronic tension headaches G44.229 ; Chronic pain G89.29 ; Anxiety F41.9 ; Nausea R11.0 and Primary insomnia F51.[address] 79042- 2852 May, [address] 18321- 5499 May, Chronic pain G89.[address] 79391- 1649 May, [address] 93945- 9120 31 Apr, 2016 Post-traumatic stress disorder, unspecified F43.10 ; Major depressive disorder, recurrent, moderate F33.1 and Problems related to release from halfway Z65.[address] 30516- 6569 28 Apr, 2016 Primary insomnia F51.01 ; Post-traumatic stress disorder, chronic F43.12 and Problems related to release from halfway Z65.2 [id number] [place] [address] 97543- 9734 17 Apr, 2016 Post-traumatic stress disorder, unspecified F43.10 ; Major depressive disorder, recurrent, moderate F33.1 and Problems related to release from halfway Z65.[address] 79752- 4570 Apr, [address] 26270- 7759 Apr, Sleep apnea, obstructive G47.33 ; Chronic pain G89.29 ; HTN (hypertension) I10 ; Mitral valve prolapse I34.1 ; Shoulder pain, left M25.512 ; Arrhythmia as indication for cardiac pacemaker replacement I49.9 ; Glaucoma H40.9 ; Bilateral headaches R51 ; Environmental allergies Z91.09 ; Primary insomnia F51.01 and Nausea R11.0 [facility] [facility] [id number] [address]- 7362 Apr, [facility] [id number] [place] [address] 95619- 9567 Apr, [facility] [id number] [place] [address] 16405- 8604 Apr, Post-traumatic stress disorder, unspecified F43.10 ; Major depressive disorder, recurrent, moderate F33.1 and Problems related to release from halfway Z65.2 [facility] [id number] [place] [address] 91937- 9159 Apr, HTN (hypertension) I10 [facility] [id number] [place] [address] 96839- 1737 Apr, HTN (hypertension) I10 [facility] [id number] [place] [address] 03549- 4264 14 Mar, 2016 Chronic pain G89.29 ; Primary insomnia F51.01 and Problems related to release from halfway Z65.2 [place] [address] [place] [address] 26890- 1522 07 Mar, 2016 Post-traumatic stress disorder, unspecified F43.10 ; Major depressive disorder, recurrent, moderate F33.1 and Problems related to release from halfway Z65.2 [address] [address] [place] [address] 49123- 5522 Feb, Post-traumatic stress disorder, unspecified F43.10 ; Major depressive disorder, recurrent, moderate F33.1 and Problems related to release from halfway Z65.2 [facility] [address] [place] [address] 32533- 1460 Feb, Chronic tension headaches G44.229 [facility] [id number] [place] [address] 16814- 7749 17 Feb, 2016 Sleep apnea, obstructive G47.33 [...] pacemaker replacement I49.9 and Primary insomnia F51.01 [place] [address] 08629- 5798 17 Feb, 2016 Post-traumatic stress disorder, unspecified F43.10 and Chronic pain G89.[address] 70101- 1665 13 Feb, 2016 [facility] [address] [id number] Feb, Dental caries K02.[address] 78814- 2154 06 Feb, 2016 [place] [address] 93778- 0310 Feb, Post-traumatic stress disorder, unspecified F43.10 ; Major depressive disorder, recurrent, moderate F33.1 and Problems related to release from halfway Z65.2 [place] [address] 57519- 0640 Jan, Sleep apnea, obstructive G47.33 and Chronic pain G89.[address] 30329- 9648 Jan, [address] 91756- 2980 14 Jan, 2016 Dental examination Z01.[address] 00790- 0180 Jan, [facility] [address] [address]- 2877 Jan, [facility] [id number] [place] [address] 99253- 1646 Dec, Post-traumatic stress disorder, unspecified F43.10 ; Major depressive disorder, recurrent, moderate F33.1 and Problems related to release from halfway Z65.2 [id number] [place] [address] 53271- 2656 Dec, Encounter for immunization Z23 ; Problems related to release from halfway Z65.2 ; Sleep apnea, obstructive G47.33 and Post-traumatic stress disorder, chronic F43.12 [address] [id number] [place] [address] 73461- 6609 Dec, Sleep apnea, obstructive G47.33 ; Hyperlipidemia E78.5 ; Chronic pain G89.29 ; Glaucoma H40.9 ; HTN (hypertension) I10 ; Post-traumatic stress disorder, unspecified F43.10 ; Anxiety F41.9 ; Chronic tension headaches G44.229 ; Mitral valve prolapse I34.1 and CAD (coronary artery disease) I25.10 [address] [place] [address] 50017- 8941 Dec, Post-traumatic stress disorder, unspecified F43.10 ; Major depressive disorder, recurrent, moderate F33.1 and Problems related to release from halfway Z65.2 [address] [address] [place] [address] 29522- 7041 Nov, Chronic pain G89.29 [address] [place] [address] 53775- 9617 Nov, Post-traumatic stress disorder, unspecified F43.10 ; Major depressive disorder, recurrent, moderate F33.1 and Problems related to release from halfway Z65.2 [place] [address] [place] [address]- 6491 Oct, [address] [place] [address]- 6491 23 Oct, 2015 [facility] [id number] [place] [address] 64937- 5733 16 Oct, 2015 Post-traumatic stress disorder, unspecified F43.10 ; Major depressive disorder, recurrent, moderate F33.1 and Problems related to release from halfway Z65.2 [facility] [id number] [place] [address] 31677- 7997 08 Oct, 2015 [facility] [id number] [place] [address] 15507- 2060 07 Oct, 2015 Environmental allergies Z91.09 ; Cough R05 and Open-angle glaucoma of both eyes H40.10X0 [facility] [id number] [place] [address] 90798- 6546 Sep, [facility] [id number] [place] [address] 79665- 5347 Sep, Post-traumatic stress disorder, unspecified F43.10 ; Major depressive disorder, recurrent, moderate F33.1 and Problems related to release from halfway Z65.2 [facility] [id number] [place] [address] 46796- 8262 Sep, Chronic pain G89.29 [facility] [id number] [place] [address] 14395- 1700 Sep, Other chronic pain G89.29 ; Pain in right shoulder M25.511 and Pain in left shoulder M25.512 [facility] [address] [place] [address] 61245- 4159 Sep, [facility] [id number] [place] [address] 76522- 7487 Sep, [facility] [id number] [place] [address] 41283- 2946 Sep, [facility] [id number] [place] [address] [id number] Aug, Dental examination Z01.20 [facility] [address] [place] [address]- 7194 Aug, Post-traumatic stress disorder, unspecified F43.10 ; Open- angle glaucoma of both eyes H40.10X0 and Problems related to release from halfway Z65.2 [facility] [address] [place] [address]- 5741 Aug, [facility] [id number] [place] [address] 33944- 4038 Aug, Sleep apnea, obstructive G47.33 ; Obesity E66.9 ; Hyperlipidemia E78.5 ; Bilateral headaches R51 ; HTN (hypertension) I10 ; Post- traumatic stress disorder, unspecified F43.10 ; Anxiety F41.9 ; Neuropathy G62.9 ; Glaucoma H40.9 and Chronic pain G89.29 [facility] [address] [place] [address] [id number] Aug, Encounter for dental examination Z01.20 [facility] [id number] [place] [address] 87514- 0320 Aug, Post-traumatic stress disorder, unspecified F43.10 ; Major depressive disorder, recurrent, moderate F33.1 and Problems related to release from halfway Z65.2 [facility] [address] [place] [address]- 2988 Aug, [facility] [address] [place] [address] 79088- 2957 Jul, [facility] [id number] [place] [address] 60984- 9897 Jul, Post-traumatic stress disorder, unspecified F43.10 and Major depressive disorder, recurrent, moderate F33.1 [facility] [address] [place] [address] 21182- 9966 Jul, [facility] [address] [place] [address]- 5782 Jul, [facility] [id number] [place] [address] 15999- 6046 Jul, Chronic pain G89.29 [facility] [id number] [place] [address] 85992- 9422 June, Post-traumatic stress disorder, unspecified F43.10 and Major depressive disorder, recurrent, moderate F33.1 [facility] [id number] [place] [address] 48696- 5394 June, [facility] [id number] [place] [address] 61407- 8658 June, Chronic pain G89.29 [facility] [id number] [place] [address] 60985- 9746 June, Post-traumatic stress disorder, unspecified F43.10 and Major depressive disorder, recurrent, moderate F33.1 [facility] [id number] [place] [address] 13581- 2755 May, Post-traumatic stress disorder, unspecified F43.10 and Major depressive disorder, recurrent, moderate F33.1 [facility] [id number] [place] [address] 86796- 5404 May, [facility] [id number] [place] [address] 46488- 3515 May, [facility] [id number] [place] [address] 48335- 0914 May, [facility] [id number] [place] [address] 83718- 5175 Apr, [facility] [id number] [place] [address] 56122- 6082 Apr, Post-traumatic stress disorder, unspecified F43.10 and Sleep apnea, obstructive G47.33 [facility] [id number] [place] [address] 24749- 1922 Apr, [facility] [id number] [place] [address] 84788- 1586 Apr, Shoulder pain, left M25.512 [facility] [id number] [place] [address] 30813- 9935 Apr, Post-traumatic stress disorder, unspecified F43.10 and Major depressive disorder, recurrent, moderate F33.1 [facility] [id number] [place] [address] 06513- 5699 17 Apr, 2015 [facility] [id number] [place] [address] 07833- 0892 Apr, [facility] [id number] [place] [address] 18265- 4075 Apr, [facility] [id number] [place] [address] 92185- 7215 Apr, Left shoulder pain M25.512 [facility] [id number] [place] [address] 12502- 5901 Mar, [facility] [id number] [place] [address] 25989- 9259 Mar, [facility] [id number] [place] [address] 55375- 1610 Mar, [facility] [id number] [place] [address] 85364- 2700 12 Mar, 2015 Sleep apnea, obstructive G47.33 ; Obesity E66.9 ; Chronic pain G89.29 ; Hyperlipidemia E78.5 ; HTN (hypertension) I10 ; Blindness and low vision H54.10 ; Major depressive disorder, recurrent, moderate F33.1 and Anxiety F41.9 [facility] [id number] [place] [address] 46033- 3256 Mar, [facility] [id number] [place] [address] 68267- 8156 Mar, Post-traumatic stress disorder, unspecified F43.10 and Major depressive disorder, recurrent, moderate F33.1 [facility] [id number] [place] [address] 77422- 3550 Mar, [facility] [address] 832607- 6932 Mar, HTN (hypertension) I10 ; Blindness and low vision H54.10 ; Obesity E66.9 ; Hyperlipidemia E78.5 ; Glaucoma H40.9 ; Chronic pain G89.29 and CAD (coronary artery disease) I25.10 [facility] [address] 81652- 3448 Feb, [facility] [address] 15704- 4560 Feb, Post-traumatic stress disorder, unspecified F43.10 ; Obesity E66.9 ; Sleep apnea, obstructive G47.33 and Open-angle glaucoma of both eyes H40.10X0 [address] 18455- 3547 Feb, Post-traumatic stress disorder, unspecified F43.10 and Major depressive disorder, recurrent, moderate F33.[address] 30980- 3522 Feb, [facility] [address] 42878- 8257 Feb, [address] 66101- 9572 Feb, HTN (hypertension) I10 ; Post-traumatic stress disorder, unspecified F43.10 ; Blindness and low vision H54.10 ; Obesity E66.9 ; Hyperlipidemia E78.5 ; Chronic pain G89.29 ; Glaucoma H40.9 ; Mitral valve prolapse I34.1 and Bilateral headaches R51 [facility] [address] 12136- 3931 Feb, [address] 59054- 8480 Feb, Post-traumatic stress disorder, unspecified F43.10 and Major depressive disorder, recurrent, moderate F33.1 [facility] [id number] [place] [address] 32334- 9622 Feb, [facility] [id number] [place] [address] 28564- 2246 Feb, [facility] [id number] [place] [address] 32718- 7361 Jan, [facility] [id number] [place] [address] 91194- 6460 Jan, [facility] [id number] [place] [address] 33821- 1221 Jan, Obesity E66.9 ; HTN (hypertension) I10 ; Blindness and low vision H54.10 ; Major depressive disorder, recurrent, moderate F33.1 ; Glaucoma H40.9 ; Hyperlipidemia E78.5 ; Sleep apnea, obstructive G47.33 ; Chronic pain G89.29 ; Anxiety F41.9 ; Chronic tension headaches G44.229 and Cough R05 [facility] [id number] [place] [address] 81006- 1659 Jan, [facility] [id number] [place] [address] 13872- 2370 Jan, [facility] [id number] [place] [address] 40524- 6999 Jan, Post-traumatic stress disorder, unspecified F43.10 ; Obesity E66.9 ; Sleep apnea, obstructive G47.33 and Open-angle glaucoma of both eyes H40.10X0 [facility] [id number] [place] [address] 83830- 9968 Jan, [facility] [id number] [place] [address]- 7964 Jan, Post-traumatic stress disorder, unspecified F43.10 and Major depressive disorder, recurrent, moderate F33.1 [facility] [id number] [place] [address] 19797- 6911 Dec, [facility] [id number] [place] [address] 17742- 9665 Dec, Sleep apnea, obstructive G47.33 ; Obesity E66.9 ; Hyperlipidemia E78.5 ; Glaucoma H40.9 ; Chronic pain G89.29 ; HTN (hypertension ) I10 ; Blindness and low vision H54.10 ; Anxiety F41.9 and CAD (coronary artery disease) I25.10 [facility] [address] 79236- 0481 Nov, [facility] [address] 88267- 6477 Nov, [facility] [id number] [place] [address] 71392- 4915 Nov, [facility] [address] [place] [address] 42153- 0044 Nov, [facility] [id number] [place] [address] 02119- 2798 Nov, [facility] [address] [place] [id number] [place] [address] 74268- 5584 Nov, Encounter for immunization Z23 ; Sleep apnea, obstructive G47.33 ; Obesity E66.9 ; Hyperlipidemia E78.5 ; Glaucoma H40.9 ; Chronic pain G89.29 ; Anxiety F41.9 ; Chronic tension headaches G44.229 and HTN (hypertension ) I10 [facility] [id number] [place] [address] 88075- 9870 Nov, [facility] [address] 85844- 6417 Nov, [facility] [address] 95586- 1540 Nov, Dizziness R42 [facility] [id number] [place] [address] 91386- 0149 Nov, [facility] [address] [address]- 7868 Oct, [facility] [id number] [place] [address] 92753- 4674 Oct, [facility] [id number] [place] [address] 86323- 4208 Oct, [facility] [id number] [place] [address] 62233- 2433 Oct, [facility] [id number] [place] [address] 32650- 1081 Oct, Dizziness 780.4 ; Essential hypertension 401.9 ; Obesity 278.00 ; Hyperlipidemia 272.4 ; Chronic pain 338.29 ; Glaucoma 365.9 and Anxiety 300.00 [facility] [id number] [place] [address] 03386- 0343 Oct, Essential hypertension 401.9 ; Hyperlipidemia 272.4 ; Glaucoma 365.9 ; Obesity 278.00 ; Chronic pain 338.29 and Allergy to insects V15.06 [facility] [id number] [place] [address] 29384- 0154 Sep, [facility] [id number] [place] [address] 78100- 7798 Sep, [facility] [address] [place] [address]- 0656 Sep, [facility] [id number] [place] [address] 83102- 0974 Sep, [facility] [id number] [place] [address] 59838- 8183 Aug, Essential hypertension 401.9 ; Obesity 278.00 ; Hyperlipidemia 272.4 ; Glaucoma 365.9 ; Lipoma 214.9 ; Mitral valve prolapse 424.0 ; Angina at rest 413.9 ; Lymphedema 457.1 and Chronic pain 338.29 IMMUNIZATIONS No Known Immunizations SOCIAL HISTORY Never Assessed REASON FOR VISIT CÉSAR [place] PLAN OF CARE Activity Details Follow Up 2 Months Reason: VITAL SIGNS Height 67 in 2016-11-03 Weight 268.8 lbs 2016-11-03 Heart Rate 80 bpm 2016-11-03 Respiratory Rate 20 2016-11-03 BMI 42.10 kg/m2 2016-11-03 Blood pressure systolic 144 mmHg 2016-11-03 Blood pressure diastolic 98 mmHg 2016-11-03 MEDICATIONS Medication Instructions Dosage Frequency Start Date End Date Duration Status EPINEPHrine HCl 0.3 mg as directed Oct, Active Topamax 100 mg Orally Twice a day 1 tablet 12h Active Timolol Hemihydrate 0.5 % Ophthalmic 2 times a day 1 drop into both eyes 12h Dec, Active Trazodone HCl 100 mg Orally Once a day 1/2 -1 tablet at bedtime for sleep 24h Oct, Active Metoprolol Succinate ER 200 mg Orally Once a day 1 tablet 24h Active Cartia XT 300 MG Orally Once a day 1 capsule 24h 30 Active Hydrocodone-Acetaminophen 7.5-325 MG Orally 4 times a day 1 tablet 6h Sep, 28 days Active Atorvastatin Calcium 40 mg Orally Once a day 1 tablet 24h Active Nitrostat 0.4 MG Sublingual every 5 minutes x 3 PRN 1 tablet Active Furosemide 40 MG Orally Once a day 1 tablet 24h Active Xanax 1 MG Orally Twice a day for anxiety 1 tablet Active Viagra 100 mg Orally Once a day prn 1 tablet as needed Jul, 10 days Active Gabapentin 300 MG Orally 2 times a day 1 capsule 12h Active Zofran ODT 4 MG Orally every [...]
--- OUTSIDE RECORDS SUMMARY | 2018-02-04 15:10 | XMS REPORT ---
Author Author KODAK YBARRA Organization [facility] Address [address] [place] [address] Care Team Providers Care Manager Graphic Name Role Phone KODAK YBARRA Unavailable PROBLEMS Type Condition ICD9-CM Code YEZ23-YZ Code Onset Dates Condition Status SNOMED Code Problem Arrhythmia as indication for cardiac pacemaker replacement I49.9 Active 85549042 Problem Body mass index (BMI) of 40.0-44.9 in adult Z68.41 Active 978980594 Problem Primary insomnia F51.01 Active 2652623 Problem Sarcoidosis D86.9 Active 29963749 Problem Chronic pain G89.29 Active 23759793 Problem Chronic pain syndrome G89.4 Active 037726601 Problem Sleep apnea, obstructive G47.33 Active 62480436 Problem Hyperlipidemia E78.5 Active 70353466 Problem Other male erectile dysfunction N52.8 Active 176989038 Problem Morbid (severe) obesity due to excess calories E66.01 Active 548340675 Problem Migraine without aura and without status migrainosus, not intractable G43.009 Active 718419916 Problem Sarcoma 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 Active 568703887 Problem Chronic tension headaches G44.229 Active 522082572 Problem Anxiety F41.9 Active 33045074 Problem HTN (hypertension) I10 Active 62325241 Problem Blindness and low vision H54.10 Active 846943868 Problem Mitral valve prolapse I34.1 Active 223708738 Problem CAD (coronary artery disease) I25.10 Active 04742327 Problem Major depressive disorder, recurrent, moderate F33.1 Active 23363451 Problem Post-traumatic stress disorder, chronic F43.12 Active 670444192 Problem Myocarditis, unspecified chronicity, 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 [id number] [place] [address] 43120- 5101 Aug, [facility] [id number] [place] [address] 89301- 4352 Jul, [facility] [id number] [place] [address] 73710- 7508 Jul, [facility] [id number] [place] [address] 50556- 6447 Jul, Post-traumatic stress disorder, unspecified F43.10 ; Major depressive disorder, recurrent, moderate F33.1 and Problems related to release from senior living Z65.2 [facility] [id number] [place] [address] 62144- 3525 June, [facility] [id number] [place] [address] 58742 -2410 June, Sore throat J02.9 and BMI 40.0-44.9, adult Z68.41 [facility] [id number] [place] [address] 81481- 2151 June, [facility] [id number] [place] [address] 41739- 0190 June, [facility] [id number] [place] [address] 35011- 7514 June, [facility] [id number] [place] [address] 20331- 5509 June, Left leg pain M79.605 [facility] [id number] [place] [address] 38031- 3673 June, Sarcoidosis D86.9 [facility] [id number] [place] [address] 27790- 1234 June, [facility] [id number] [place] [address] 65332- 9456 June, [facility] [id number] [place] [address] 30582- 8662 June, Left leg pain M79.605 [facility] [address], [place] [address] 7941 May, [facility] [id number] [place] [address] 05198- 2415 May, [facility] [id number] [place] [address] 23200- 2104 May, [facility] [id number] [place] [address] 02389- 8145 May, Left leg pain M79.605 [facility] [id number] [place] [address] 47043- 4592 May, Post-traumatic stress disorder, unspecified F43.10 ; Major depressive disorder, recurrent, moderate F33.1 and Problems related to release from senior living Z65.2 [facility] [id number] [place] [address] 32128- 8890 May, Chronic pain G89.29 ; Anxiety F41.9 ; Chest pain, unspecified type R07.9 and BMI 40.0-44.9, adult Z68.41 [facility] [id number] [place] [address] 21177- 6843 Apr, [facility] [address] [place] [address] 84360- 2374 Apr, Left leg pain M79.605 [facility] [id number] [place] [address] 24622- 6802 Apr, Post-traumatic stress disorder, unspecified F43.10 ; Problems related to release from senior living Z65.2 ; Anxiety F41.9 and BMI 40.0-44.9 , adult Z68.41 [facility] [address] [place] [address] 35932- 1960 Apr, [facility] [id number] [place] [address] 22819- 3490 Apr, Left leg pain M79.605 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 ; Morbid (severe) obesity due to excess calories E66.01 ; Anxiety F41.9 and BMI 40.0-44.9, adult Z68.41 [facility] [address] 16342 -5608 10 Apr, 2017 Sore throat J02.9 and BMI 40.0-44.9, adult Z68.41 [facility] [address] 19907- 7658 02 Apr, 2017 Left leg pain M79.605 [facility] [address] [id number] 28 Mar, 2017 Dental examination Z01.[address] 76197- 0223 Mar, [facility] [address] [place] [address] 57585 -5444 20 Mar, 2017 Cough R05 ; Viral gastroenteritis A08.4 and BMI 40.0-44.9, adult Z68.41 [facility] [address] 16493- 7314 19 Mar, 2017 Left leg pain M79.605 [facility] [address] 25617- 2382 06 Mar, 2017 Post-traumatic stress disorder, unspecified F43.10 ; Major depressive disorder, recurrent, moderate F33.1 and Problems related to release from senior living Z65.2 [facility] [address] [place] [address] 26680- 7697 Feb, Left leg pain M79.605 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 [facility] [id number] [place] [address] 17841- 0974 Feb, Post-traumatic stress disorder, chronic F43.12 ; Anxiety F41.9 ; Problems related to release from senior living Z65.2 and BMI 40.0-44.9, adult Z68.41 [facility] [id number] [place] [address] 66081- 2124 Feb, Post-traumatic stress disorder, unspecified F43.10 ; Major depressive disorder, recurrent, moderate F33.1 and Problems related to release from senior living Z65.2 [facility] [address], [place] [address]- 6170 Feb, Left leg pain M79.605 [facility] [id number] [place] [address] 33077- 0059 Jan, Post-traumatic stress disorder, unspecified F43.10 ; Major depressive disorder, recurrent, moderate F33.1 and Problems related to release from senior living Z65.2 [facility] [id number] [place] [address] 81921- 5094 Jan, [facility] [id number] [address]- 7412 Jan, [facility] [address] [place] [address]- 8616 Jan, Anxiety F41.9 [facility] [id number] [place] [address] 03690- 5922 13 Jan, 2017 Left leg pain M79.605 [facility] [id number] [place] [address] 89811- 7443 Dec, Left leg pain M79.605 [facility] [id number] [place] [address] 72362- 2959 Dec, [facility] [id number] [place] [address] 24350- 3762 15 Dec, 2016 Post-traumatic stress disorder, unspecified F43.10 ; Major depressive disorder, recurrent, moderate F33.1 and Problems related to release from senior living Z65.2 [facility] [id number] [place] [address] 53099- 0715 31 Nov, 2016 Chronic pain G89.29 and Anxiety F41.9 [facility] [id number] [place] [address] 69074- 2439 24 Nov, 2016 Chronic pain G89.29 and Anxiety F41.9 [facility] [id number] [place] [address] 97789- 7061 16 Nov, 2016 Post-traumatic stress disorder, unspecified F43.10 ; Major depressive disorder, recurrent, moderate F33.1 and Problems related to release from senior living Z65.2 [facility] [address] [place] [address] 54376- 2689 09 Nov, 2016 Other abnormal findings in specimens from other organs, systems and tissues R89.8 ; Other male erectile dysfunction N52.8 ; Body mass index (BMI) of 40.0-44.9 in adult Z68.41 and Morbid (severe) obesity due to excess calories E66.01 [facility] [address] [place] [address] 58658- 8600 02 Nov, 2016 Post-traumatic stress disorder, unspecified F43.10 ; Major depressive disorder, recurrent, moderate F33.1 and Problems related to release from senior living Z65.2 [facility] [id number] [address] 29 Oct, [address] [facility] [address], [place] [address]- 8890 28 Oct, 2016 [facility] [address] [place] [address] 30036- 8399 28 Oct, 2016 Encounter for immunization Z23 [facility] [id number] [place] [address] 53887- 2212 Oct, Chronic pain G89.29 ; Anxiety F41.9 ; Arrhythmia as indication for cardiac pacemaker replacement I49.9 and Glaucoma H40.9 [place] [facility] [address], [place] [address]- 5299 Oct, Anxiety F41.9 ; Post-traumatic stress disorder, chronic F43.12 and Problems related to release from senior living Z65.2 [facility] [address] [place] [address] 19809- 0445 Oct, Post-traumatic stress disorder, unspecified F43.10 ; Major depressive disorder, recurrent, moderate F33.1 and Problems related to release from senior living Z65.2 [facility] [address] [address]- 0811 Sep, Chronic pain G89.29 and Anxiety F41.9 [facility] [address] [place] [address] 16294- 2417 Sep, Post-traumatic stress disorder, unspecified F43.10 ; Major depressive disorder, recurrent, moderate F33.1 and Problems related to release from senior living Z65.2 [facility] [address] [place] [address] 32928- 8911 Sep, Post-traumatic stress disorder, unspecified F43.10 ; Major depressive disorder, recurrent, moderate F33.1 and Problems related to release from senior living Z65.2 [facility] [id number], [place] [address]- 9479 Sep, Chronic pain G89.29 [facility] [id number] [place] [address] 93944- 0793 Aug, Dental caries, unspecified K02.9 [facility] [id number] [place] [address] 57581- 5327 Aug, Sleep apnea, obstructive G47.33 ; Obesity E66.9 ; Chronic pain G89.29 ; HTN (hypertension) I10 ; Major depressive disorder, recurrent, moderate F33.1 ; Anxiety F41.9 ; Chronic tension headaches G44.229 ; Mitral valve prolapse I34.1 ; Arrhythmia as indication for cardiac pacemaker replacement I49.9 ; Dental caries, unspecified K02.9 ; Primary insomnia F51.01 and Hyperlipidemia E78.5 [facility] [id number] [place] [address] 24855- 0146 Aug, Post-traumatic stress disorder, unspecified F43.10 ; Major depressive disorder, recurrent, moderate F33.1 and Problems related to release from senior living Z65.2 [facility] [id number] [place] [address] 04825- 5597 Aug, Dental examination Z01.20 [facility] [address] [place] [address] [id number] 13 Aug, [address] [facility] [address] [place] [address] 56374- 5465 06 Aug, 2016 Post-traumatic stress disorder, unspecified F43.10 ; Major depressive disorder, recurrent, moderate F33.1 and Problems related to release from senior living Z65.2 [facility] [id number] [place] [address] 69815- 0071 05 Aug, 2016 Chronic pain G89.29 and Primary insomnia F51.01 [facility] [address] [place] [address] 65772- 8948 Jul, [facility] [id number] [place] [address] 65015- 8203 Jul, [facility] [id number] [place] [address] 64354- 5593 Jul, Nausea R11.0 [facility] [id number] [place] [address] 27927- 1784 Jul, Arrhythmia as indication for cardiac pacemaker replacement I49.9 [facility] [id number] [place] [address] 10250- 7560 13 Jul, 2016 Post-traumatic stress disorder, unspecified F43.10 ; Major depressive disorder, recurrent, moderate F33.1 and Problems related to release from senior living Z65.2 [id number] [place] [address] 45709- 7336 09 Jul, 2016 Anxiety F41.9 [address] [id number] [place] [address] 58120- 7877 08 Jul, 2016 Chronic pain G89.29 [id number] [place] [address] 85385- 1169 02 Jul, 2016 Sleep apnea, obstructive G47.33 ; Hyperlipidemia E78.5 ; Chronic pain G89.29 ; Blindness and low vision H54.10 ; Major depressive disorder, recurrent, moderate F33.1 ; Anxiety F41.9 ; Mitral valve prolapse I34.1 ; Arrhythmia as indication for cardiac pacemaker replacement I49.9 ; Primary insomnia F51.01 ; Bilateral headaches R51 and Environmental allergies Z91.[address] [place] [address] 32806- 3149 Jul, Post-traumatic stress disorder, unspecified F43.10 ; Major depressive disorder, recurrent, moderate F33.1 and Problems related to release from senior living Z65.2 [address] [place] [address] 50231- 9825 June, Post-traumatic stress disorder, chronic F43.12 ; Anxiety F41.9 ; Problems related to release from senior living Z65.2 ; Sleep apnea, obstructive G47.33 and Primary insomnia F51.01 [facility] [address], [place] [address]- 7944 June, [facility] [id number] [place] [address] 44981- 4522 June, [facility] [id number] [place] [address] 61927- 4623 June, [facility] [id number] [place] [address] 34247- 6903 June, Chronic pain G89.29 [facility] [id number] [place] [address] 80060- 9747 June, Chronic pain G89.29 [address] [id number] [place] [address] 36067- 8022 June, Lipoma of left lower extremity D17.24 ; Open wound T14.8 and Swelling of left lower extremity M79.89 [address] [id number] [place] [address] 77586- 6233 June, Post-traumatic stress disorder, unspecified F43.10 ; Major depressive disorder, recurrent, moderate F33.1 and Problems related to release from senior living Z65.2 [address] [place] [address] 41480- 1288 May, Lipoma of left lower extremity D17.24 ; Major depressive disorder, recurrent, moderate F33.1 ; Sleep apnea, obstructive G47.33 ; Hyperlipidemia E78.5 ; Obesity E66.9 ; HTN (hypertension) I10 ; Glaucoma H40.9 ; CAD (coronary artery disease) I25.10 ; Chronic tension headaches G44.229 ; Chronic pain G89.29 ; Anxiety F41.9 ; Nausea R11.0 and Primary insomnia F51.01 [facility] [address] [place] [address] 23697- 3941 May, [address] [id number] [place] [address] 67903- 7331 May, Chronic pain G89.29 [facility] [address], [place] [address]- 7824 May, [facility] [id number] [place] [address] 63394- 8400 31 Apr, 2016 Post-traumatic stress disorder, unspecified F43.10 ; Major depressive disorder, recurrent, moderate F33.1 and Problems related to release from senior living Z65.2 [facility] [id number] [place] [address] 33880- 3565 Apr, Primary insomnia F51.01 ; Post-traumatic stress disorder, chronic F43.12 and Problems related to release from senior living Z65.2 [address] [id number] [place] [address] 38432- 6464 17 Apr, 2016 Post-traumatic stress disorder, unspecified F43.10 ; Major depressive disorder, recurrent, moderate F33.1 and Problems related to release from senior living Z65.2 [facility] [id number] [place] [address] 01350- 4776 16 Apr, 2016 [facility] [address] [place] [address] 56868- 1592 Apr, Sleep apnea, obstructive G47.33 ; Chronic pain G89.29 ; HTN (hypertension) I10 ; Mitral valve prolapse I34.1 ; Shoulder pain, left M25.512 ; Arrhythmia as indication for cardiac pacemaker replacement I49.9 ; Glaucoma H40.9 ; Bilateral headaches R51 ; Environmental allergies Z91.09 ; Primary insomnia F51.01 and Nausea R11.0 [facility] [address], [place] [address]- 2940 Apr, [place] [id number] [place] [address] 93709- 0507 Apr, [facility] [address] [place] [address] 16434- 7959 Apr, Post-traumatic stress disorder, unspecified F43.10 ; Major depressive disorder, recurrent, moderate F33.1 and Problems related to release from senior living Z65.2 [facility] [address], [place] [address]- 5869 Apr, HTN (hypertension) I10 [facility] [id number] [place] [address] 72394- 6705 Apr, HTN (hypertension) I10 [facility] [id number], [place] [address]- 8337 Mar, Chronic pain G89.29 ; Primary insomnia F51.01 and Problems related to release from senior living Z65.2 [facility] [id number] [place] [address] 22429- 4985 07 Mar, 2016 Post-traumatic stress disorder, unspecified F43.10 ; Major depressive disorder, recurrent, moderate F33.1 and Problems related to release from senior living Z65.2 [facility] [id number] [place] [address] 50978- 4002 Feb, Post-traumatic stress disorder, unspecified F43.10 ; Major depressive disorder, recurrent, moderate F33.1 and Problems related to release from senior living Z65.2 [facility] [id number] [place] [address] 82344- 0764 Feb, Chronic tension headaches G44.229 [facility] [id number] [place] [address] 09398- 3205 Feb, Sleep apnea, obstructive G47.33 ; Obesity [...] pacemaker replacement I49.9 and Primary insomnia F51.01 [facility] [address], [place] [address]- 3778 Feb, Post-traumatic stress disorder, unspecified F43.10 and Chronic pain G89.29 [facility] [address], [place] [address]- 3738 Feb, [facility] [address] [id number] Feb, Dental caries K02.9 [facility] [address], [place] [address]- 3201 Feb, [facility] [id number] [place] [address] 74544- 9107 Feb, Post-traumatic stress disorder, unspecified F43.10 ; Major depressive disorder, recurrent, moderate F33.1 and Problems related to release from senior living Z65.2 [facility] [id number] [place] [address] 80707- 1301 Jan, Sleep apnea, obstructive G47.33 and Chronic pain G89.29 [facility] [id number] [place] [address] 47481- 2955 Jan, [facility] [id number] [place] [address] 89024- 3227 Jan, Dental examination Z01.20 [facility] [id number] [place] [address] 12324- 6993 Jan, [facility] [address], [place] [address]- 8009 Jan, [facility] [id number] [place] [address] 39683- 8734 Dec, Post-traumatic stress disorder, unspecified F43.10 ; Major depressive disorder, recurrent, moderate F33.1 and Problems related to release from senior living Z65.2 [facility] [address] [place] [address] 86658- 7800 Dec, Encounter for immunization Z23 ; Problems related to release from senior living Z65.2 ; Sleep apnea, obstructive G47.33 and Post-traumatic stress disorder, chronic F43.[address] [facility] [address] 29859- 3806 Dec, Sleep apnea, obstructive G47.33 ; Hyperlipidemia E78.5 ; Chronic pain G89.29 ; Glaucoma H40.9 ; HTN (hypertension) I10 ; Post-traumatic stress disorder, unspecified F43.10 ; Anxiety F41.9 ; Chronic tension headaches G44.229 ; Mitral valve prolapse I34.1 and CAD (coronary artery disease) I25.[address] 24681- 0674 Dec, Post-traumatic stress disorder, unspecified F43.10 ; Major depressive disorder, recurrent, moderate F33.1 and Problems related to release from senior living Z65.[address] 33297- 7019 Nov, Chronic pain G89.[address] 14397- 9691 Nov, Post-traumatic stress disorder, unspecified F43.10 ; Major depressive disorder, recurrent, moderate F33.1 and Problems related to release from senior living Z65.[address] 80639- 7337 Oct, [address] 23065- 9060 23 Oct, [address] 08285- 7855 16 Oct, 2015 Post-traumatic stress disorder, unspecified F43.10 ; Major depressive disorder, recurrent, moderate F33.1 and Problems related to release from senior living Z65.[address] 69257- 3365 08 Oct, [address] 02514- 3519 07 Oct, 2015 Environmental allergies Z91.09 ; Cough R05 and Open-angle glaucoma of both eyes H40.10X0 [address] [place] [address] Sep, [facility] [id number] [place] [address] 33860- 2413 Sep, Post-traumatic stress disorder, unspecified F43.10 ; Major depressive disorder, recurrent, moderate F33.1 and Problems related to release from senior living Z65.2 [facility] [id number] [place] [address] 09250- 9848 Sep, Chronic pain G89.29 [facility] [id number] [place] [address] 04915- 3028 Sep, Pain in left shoulder M25.512 ; Pain in right shoulder M25.511 and Other chronic pain G89.29 [facility] [id number] [place] [address] 93476- 7144 Sep, [facility] [id number] [place] [address] 93795- 0658 Sep, [facility] [id number] [place] [address] 16156- 2341 Sep, [facility] [address] [place] [address] [id number] Aug, Dental examination Z01.20 [facility] [facility] [id number] [place] [address] 27317- 6891 Aug, Post-traumatic stress disorder, unspecified F43.10 ; Open- angle glaucoma of both eyes H40.10X0 and Problems related to release from senior living Z65.2 [facility] [address], [place] [address] Aug, [place] [id number] [place] [address] 15089- 3742 Aug, Sleep apnea, obstructive G47.33 ; Obesity E66.9 ; Hyperlipidemia E78.5 ; Bilateral headaches R51 ; HTN (hypertension) I10 ; Post- traumatic stress disorder, unspecified F43.10 ; Anxiety F41.9 ; Neuropathy G62.9 ; Glaucoma H40.9 and Chronic pain G89.29 [facility] [id number] [id number] Aug, Encounter for dental examination Z01.20 [facility] [id number] [place] [address] 86608- 0772 08 Aug, 2015 Post-traumatic stress disorder, unspecified F43.10 ; Major depressive disorder, recurrent, moderate F33.1 and Problems related to release from senior living Z65.2 [facility] [id number] [place] [address] 11363- 0442 Aug, [facility] [id number] [place] [address] 72355- 1827 Jul, [facility] [id number] [place] [address] 44567- 8752 Jul, Post-traumatic stress disorder, unspecified F43.10 and Major depressive disorder, recurrent, moderate F33.1 [facility] [address], [place] [address] Jul, [facility] [id number] [place] [address] 93442- 8396 Jul, [facility] [id number] [place] [address] 22039- 8731 Jul, Chronic pain G89.29 [facility] [id number] [place] [address] 35894- 4268 June, Post-traumatic stress disorder, unspecified F43.10 and Major depressive disorder, recurrent, moderate F33.1 [facility] [id number] [place] [address] 12066- 5778 June, [facility] [id number] [place] [address] 88010- 7723 June, Chronic pain G89.29 [facility] [id number] [place] [address] 15467- 8082 June, Post-traumatic stress disorder, unspecified F43.10 and Major depressive disorder, recurrent, moderate F33.1 [facility] [id number] [place] [address] 52436- 4286 May, Post-traumatic stress disorder, unspecified F43.10 and Major depressive disorder, recurrent, moderate F33.1 [facility] [id number] [place] [address] 23525- 4392 May, [facility] [id number] [place] [address] 93320- 6470 May, [facility] [id number] [place] [address] 13770- 6948 May, [facility] [id number] [place] [address] 43247- 8263 Apr, [facility] [id number] [place] [address] 98567- 8861 Apr, Post-traumatic stress disorder, unspecified F43.10 and Sleep apnea, obstructive G47.33 [facility] [id number] [place] [address] 11909- 0664 Apr, [facility] [id number] [place] [address] 33292- 5236 Apr, Shoulder pain, left M25.512 [facility] [id number] [place] [address] 22697- 8371 Apr, Post-traumatic stress disorder, unspecified F43.10 and Major depressive disorder, recurrent, moderate F33.1 [facility] [id number] [place] [address] 49780- 5648 17 Apr, 2015 [facility] [id number] [place] [address] 59793- 7941 Apr, [facility] [id number] [place] [address] 32095- 2551 Apr, [facility] [id number] [place] [address] 78525- 2323 Apr, Left shoulder pain M25.512 [facility] [id number] [place] [address] 81002- 7990 Mar, [facility] [id number] [place] [address] 41492- 0531 Mar, [place] [address] 84661- 9215 Mar, [place] [id number] [place] [address] 25319- 4898 Mar, Sleep apnea, obstructive G47.33 ; Obesity E66.9 ; Chronic pain G89.29 ; Hyperlipidemia E78.5 ; HTN (hypertension) I10 ; Blindness and low vision H54.10 ; Major depressive disorder, recurrent, moderate F33.1 and Anxiety F41.9 [facility] [id number] [place] [address] 93725- 2732 Mar, [facility] [id number] [place] [address] 90147- 8248 Mar, Post-traumatic stress disorder, unspecified F43.10 and Major depressive disorder, recurrent, moderate F33.1 [facility] [id number] [place] [address] 55897- 2286 Mar, [facility] [id number] [place] [address] 46588- 5070 Mar, HTN (hypertension) I10 ; Blindness and low vision H54.10 ; Obesity E66.9 ; Hyperlipidemia E78.5 ; Glaucoma H40.9 ; Chronic pain G89.29 and CAD (coronary artery disease) I25.10 [facility] [id number] [place] [address] 23414- 4579 Feb, [facility] [id number] [place] [address] 38789- 5319 Feb, Post-traumatic stress disorder, unspecified F43.10 ; Obesity E66.9 ; Sleep apnea, obstructive G47.33 and Open-angle glaucoma of both eyes H40.10X0 [place] [address] 75666- 5711 Feb, Post-traumatic stress disorder, unspecified F43.10 and Major depressive disorder, recurrent, moderate F33.1 [place] [address] 72915- 8776 Feb, [place] [address] 65892- 7656 Feb, [place] [address] 23902- 9729 Feb, HTN (hypertension) I10 ; Post-traumatic stress disorder, unspecified F43.10 ; Blindness and low vision H54.10 ; Obesity E66.9 ; Hyperlipidemia E78.5 ; Chronic pain G89.29 ; Glaucoma H40.9 ; Mitral valve prolapse I34.1 and Bilateral headaches R51 [place] [address] 21421- 7705 Feb, [place] [address] 28276- 1135 Feb, Post-traumatic stress disorder, unspecified F43.10 and Major depressive disorder, recurrent, moderate F33.1 [facility] [id number] [place] [address] 57547- 7541 Feb, [facility] [id number] [place] [address] 07020- 1701 Feb, [place] [address] 31394- 3128 Jan, [place] [address] 22686- 1514 Jan, [place] [address] 00497- 7505 Jan, Obesity E66.9 ; HTN (hypertension) I10 ; Blindness and low vision H54.10 ; Major depressive disorder, recurrent, moderate F33.1 ; Glaucoma H40.9 ; Hyperlipidemia E78.5 ; Sleep apnea, obstructive G47.33 ; Chronic pain G89.29 ; Anxiety F41.9 ; Chronic tension headaches G44.229 and Cough R05 [place] [address]- 358 Jan, [place] [address]- 6981 Jan, [place] [address] 7398 Jan, Post-traumatic stress disorder, unspecified F43.10 ; Obesity E66.9 ; Sleep apnea, obstructive G47.33 and Open-angle glaucoma of both eyes H40.10X0 [place] [id number]- 2473 Jan, [place] [id number]- 1351 Jan, Post-traumatic stress disorder, unspecified F43.10 and Major depressive disorder, recurrent, moderate F33.1 [place] [id number] [place] [id number] Dec, [place] [address]202- 9132 Dec, Sleep apnea, obstructive G47.33 ; Obesity E66.9 ; Hyperlipidemia E78.5 ; Glaucoma H40.9 ; Chronic pain G89.29 ; HTN (hypertension ) I10 ; Blindness and low vision H54.10 ; Anxiety F41.9 and CAD (coronary artery disease) I25.10 [place] [id number] [place] [id number] 0108 Nov, [place] [id number]- 7125 Nov, [facility] [id number] [place] [address] 38339- 2255 Nov, [facility] [id number] [place] [address] 87828- 3142 Nov, [facility] [id number] [place] [address] 35304- 5292 Nov, [facility] [address] 93284- 4569 Nov, Encounter for immunization Z23 ; Sleep apnea, obstructive G47.33 ; Obesity E66.9 ; Hyperlipidemia E78.5 ; Glaucoma H40.9 ; Chronic pain G89.29 ; Anxiety F41.9 ; Chronic tension headaches G44.229 and HTN (hypertension ) I10 [facility] [id number] [place] [address] 84933- 0380 Nov, [facility] [address] 45719- 0750 Nov, [facility] [id number] [place] [address] 89075- 2585 Nov, Dizziness R42 [facility] [id number] [place] [address] 58258- 1747 Nov, [facility] [id number] [place] [address] 36027- 3847 29 Oct, 2014 [facility] [id number] [place] [address] 91848- 3206 28 Oct, 2014 [facility] [id number] [place] [address] 77085- 4480 Oct, [facility] [address] 72280- 4319 Oct, [facility] [id number] [place] [address] 49305- 0195 17 Oct, 2014 Dizziness 780.4 ; Essential hypertension 401.9 ; Obesity 278.00 ; Hyperlipidemia 272.4 ; Chronic pain 338.29 ; Glaucoma 365.[address] [facility] [address], [place] [address]- 4260 Oct, Essential hypertension 401.9 ; Hyperlipidemia 272.4 ; Glaucoma 365.9 ; Obesity 278.00 ; Chronic pain 338.29 and Allergy to insects V15.06 [facility] [address], [place] [address]- 7865 Sep, [facility] [id number] [place] [address] 38345- 4128 Sep, [facility] [id number] [place] [address] 96553- 9633 Sep, [facility] [id number] [place] [address] 16896- 6098 Sep, [facility] [id number] [place] [address] 99758- 7627 Aug, Essential hypertension 401.9 ; Obesity 278.00 [...]
--- OUTSIDE RECORDS SUMMARY | 2018-02-04 15:11 | XMS REPORT ---
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 Name Role Phone EDUIN CARDONA Unavailable PROBLEMS Type Condition ICD9-CM Code [id number] Code Onset Dates Condition Status SNOMED Code Problem CAD (coronary artery disease) I25.10 Active 04958414 Problem Encounter for dental examination Z01.20 Active 032964647 Problem Shoulder pain, left M25.512 Active 56084113 Problem Post-traumatic stress disorder, unspecified F43.10 Active 03796158 Problem Hyperlipidemia E78.5 Active 06002680 Problem Primary insomnia F51.01 Active 1451464 Problem Obesity E66.9 Active 259541768 Problem Chronic pain G89.29 Active 54634208 Problem Post-traumatic stress disorder, chronic F43.12 Active 780547038 Problem Bilateral headaches R51 Active 819406008 Problem Arrhythmia as indication for cardiac pacemaker replacement I49.9 Active 11848264 Problem Environmental allergies Z91.09 Active 359395725 Problem Blindness and low vision H54.10 Active 664445491 Problem HTN (hypertension) I10 Active 52216566 Problem Glaucoma H40.9 Active 78643947 Problem Problems related to release from senior living Z65.2 Active 82416737 Problem Anxiety F41.9 Active 17207290 Problem Major depressive disorder, recurrent, moderate F33.1 Active 11144611 Problem Chronic tension headaches G44.229 Active 922159673 Problem Open-angle glaucoma of both eyes H40.10X0 Active 96448078 Problem Sleep apnea, obstructive G47.33 Active 80884353 Problem Cough R05 Active 07798548 Problem Mitral valve prolapse I34.1 Active 573919169 ALLERGIES No Information SOCIAL HISTORY Never Assessed PLAN OF CARE VITAL SIGNS MEDICATIONS Medication Instructions Dosage Frequency Start Date End Date Duration Status Nitrostat 0.4 MG Sublingual PRN Instill 30 days Active RESULTS No Results PROCEDURES [...]
--- OUTSIDE RECORDS SUMMARY | 2018-02-04 15:11 | XMS REPORT ---
Author Author KODAK YBARRA Organization [facility] Address [address] [place] [address] Care Team Providers Care Director Electrical Engineering Name Role Phone KODAK YBARRA Unavailable PROBLEMS Type Condition ICD9-CM Code EVY77-OD Code Onset Dates Condition Status SNOMED Code Problem Arrhythmia as indication for cardiac pacemaker replacement I49.9 Active 50414635 Problem Body mass index (BMI) of 40.0-44.9 in adult Z68.41 Active 579409176 Problem Primary insomnia F51.01 Active 9960801 Problem Sarcoidosis D86.9 Active 41574748 Problem Chronic pain G89.29 Active 88123315 Problem Chronic pain syndrome G89.4 Active 523342207 Problem Sleep apnea, obstructive G47.33 Active 81122567 Problem Hyperlipidemia E78.5 Active 10324570 Problem Other male erectile dysfunction N52.8 Active 373724685 Problem Morbid (severe) obesity due to excess calories E66.01 Active 561494612 Problem Migraine without aura and without status migrainosus, not intractable G43.009 Active 542396386 Problem 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 Active 174459759 Problem Chronic tension headaches G44.229 Active 467031234 Problem Anxiety F41.9 Active 31972564 Problem HTN (hypertension) I10 Active 09278224 Problem Blindness and low vision H54.10 Active 949648594 Problem Mitral valve prolapse I34.1 Active 537156099 Problem CAD (coronary artery disease) I25.10 Active 97922442 Problem Major depressive disorder, recurrent, moderate F33.1 Active 46106485 Problem Post-traumatic stress disorder, chronic F43.12 Active 223490406 Problem Myocarditis, unspecified chronicity, 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 Active 80096672 Problem Open-angle glaucoma of both eyes H40.10X0 Active 25925226 Problem Environmental allergies Z91.09 Active 038297058 ALLERGIES No Information ENCOUNTERS Encounter Location Date Diagnosis [facility] [id number], [place] [address] Jul, [facility] [address], [place] [address] Jul, [facility] [address], [place] [address] June, [facility] [id number] [address] June, [facility] [id number] [place] [address] 14415- 1645 June, [facility] [id number] [place] [address] 79347- 8097 June, Left leg pain M79.605 [facility] [id number] [place] [address] 01685- 5484 June, Sarcoidosis D86.9 [facility] [id number] [place] [address] 67511- 7060 June, [facility] [address], [place] [address] June, [facility] [id number] [place] [address] 23089- 4998 June, Left leg pain M79.605 [facility] [address], [place] [address] 280[address] May, [facility] [address], [place] [address] May, [facility] [address], [place] [address] 235[address] May, [facility] [id number], [place] [address] 8070 May, Left leg pain M79.605 [facility] [address], [place] [address] May, Post-traumatic stress disorder, unspecified F43.10 ; Major depressive disorder, recurrent, moderate F33.1 and Problems related to release from jail Z65.2 [place] [id number] [place] [address] 69644- 2793 May, Chronic pain G89.29 ; Anxiety F41.9 and Chest pain, unspecified type R07.9 [place] [address] 88180- 8851 30 Apr, 2017 [place] [id number] [place] [address] 94407- 5872 29 Apr, 2017 Left leg pain M79.605 [place] [address] 10272- 5931 27 Apr, 2017 Post-traumatic stress disorder, unspecified F43.10 ; Problems related to release from jail Z65.2 ; Anxiety F41.9 and BMI 40.0-44.9 , adult Z68.41 [place] [id number] [place] [address] 48905- 0750 Apr, [facility] [id number] [place] [address] 15062- 7452 Apr, Left leg pain M79.605 [place] [id number] [place] [address] 19107- 5602 Apr, Post-traumatic stress disorder, unspecified F43.10 ; Major depressive disorder, recurrent, moderate F33.1 and Problems related to release from jail Z65.2 [place] [id number] [place] [address] 64968- 5575 Apr, [place] [id number] [place] [address] 77703- 0111 Apr, Chronic pain G89.29 ; 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 ; Morbid (severe) obesity due to excess calories E66.01 ; Anxiety F41.9 and BMI 40.0-44.9, adult Z68.41 [facility] [id number] [place] [address] 68009 -3768 Apr, Sore throat J02.9 and BMI 40.0-44.9, adult Z68.41 [place] [address] 17717- 0383 Apr, Left leg pain M79.605 [facility] [address] [place] [address] [id number] Mar, Dental examination Z01.20 [facility] [address] 39217- 4287 Mar, [facility] [address] [address] Mar, Cough R05 ; Viral gastroenteritis A08.4 and BMI 40.0-44.9, adult Z68.41 [place] [address] 86555- 9982 Mar, Left leg pain M79.605 [place] [id number] [place] [address] 52544- 2247 06 Mar, 2017 Post-traumatic stress disorder, unspecified F43.10 ; Major depressive disorder, recurrent, moderate F33.1 and Problems related to release from jail Z65.2 [place] [id number] [place] [address] 13324- 4538 Feb, Left leg pain M79.605 [facility] [id number] [place] [address] 48052- 9968 Feb, [place] [address] 27473- 8119 Feb, BMI 40.0-44.9, adult Z68.41 ; Chronic pain syndrome G89.4 ; Migraine without aura and without status migrainosus, not intractable G43.009 ; Mitral valve prolapse I34.1 and 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 [facility] [id number] [place] [address] 44539- 2654 Feb, Post-traumatic stress disorder, chronic F43.12 ; Anxiety F41.9 ; Problems related to release from jail Z65.2 and BMI 40.0-44.9, adult Z68.41 [facility] [id number] [place] [address] 55118- 9613 Feb, Post-traumatic stress disorder, unspecified F43.10 ; Major depressive disorder, recurrent, moderate F33.1 and Problems related to release from jail Z65.2 [facility] [id number] [place] [address] 86862- 7193 Feb, Left leg pain M79.605 [place] [id number] [place] [address] 88930- 2879 Jan, Post-traumatic stress disorder, unspecified F43.10 ; Major depressive disorder, recurrent, moderate F33.1 and Problems related to release from jail Z65.2 [place] [id number] [place] [address] 84677- 1938 Jan, [place] [id number] [place] [address] 03178- 0822 Jan, [place] [facility] [id number] [place] [address] 49528- 1841 Jan, Anxiety F41.9 [place] [id number] [place] [address] 11576- 8063 Jan, Left leg pain M79.605 [facility] [id number] [place] [address] 45654- 1113 Dec, Left leg pain M79.605 [place] [id number] [place] [address] 27649- 0067 Dec, [place] [id number] [place] [address] 50957- 3443 Dec, Post-traumatic stress disorder, unspecified F43.10 ; Major depressive disorder, recurrent, moderate F33.1 and Problems related to release from jail Z65.2 [facility] [id number] [place] [address] 18716- 8954 31 Nov, 2016 Chronic pain G89.29 and Anxiety F41.9 [place] [id number] [place] [address] 8513 24 Nov, 2016 Chronic pain G89.29 and Anxiety F41.9 [place] [address] 40533- 1893 16 Nov, 2016 Post-traumatic stress disorder, unspecified F43.10 ; Major depressive disorder, recurrent, moderate F33.1 and Problems related to release from jail Z65.2 [address] [address] 68454- 9744 09 Nov, 2016 Other abnormal findings in specimens from other organs, systems and tissues R89.8 ; Other male erectile dysfunction N52.8 ; Body mass index (BMI) of 40.0-44.9 in adult Z68.41 and Morbid (severe) obesity due to excess calories E66.01 [place] [id number] [place] [address] 32718- 2279 02 Nov, 2016 Post-traumatic stress disorder, unspecified F43.10 ; Major depressive disorder, recurrent, moderate F33.1 and Problems related to release from jail Z65.2 [facility] [id number] [place] [address] [id number] Oct, Dental examination Z01.20 [place] [id number] [place] [address] 28117- 9645 Oct, [place] [id number] [place] [address] 28231- 9102 Oct, Encounter for immunization Z23 [place] [address] 46389- 3401 26 Oct, 2016 Chronic pain G89.29 ; Anxiety F41.9 ; Arrhythmia as indication for cardiac pacemaker replacement I49.9 and Glaucoma H40.[address] 71938- 6189 Oct, Anxiety F41.9 ; Post-traumatic stress disorder, chronic F43.12 and Problems related to release from jail Z65.2 [place] [id number] [place] [address]956 07 Oct, 2016 Post-traumatic stress disorder, unspecified F43.10 ; Major depressive disorder, recurrent, moderate F33.1 and Problems related to release from jail Z65.2 [place] [id number] [place] [address] 59657- 0515 Sep, Chronic pain G89.29 and Anxiety F41.9 [place] [id number] [place] [address] 58816- 4673 Sep, Post-traumatic stress disorder, unspecified F43.10 ; Major depressive disorder, recurrent, moderate F33.1 and Problems related to release from jail Z65.2 [place] [id number] [place] [address] 29127- 8544 Sep, Post-traumatic stress disorder, unspecified F43.10 ; Major depressive disorder, recurrent, moderate F33.1 and Problems related to release from jail Z65.2 [place] [id number] [place] [address] 02748- 6021 Sep, Chronic pain G89.29 [place] [id number] [place] [address] 55683- 3573 Aug, Dental caries, unspecified K02.9 [place] [id number] [place] [address] 11788- 2713 Aug, Sleep apnea, obstructive G47.33 ; Obesity E66.9 ; Chronic pain G89.29 ; HTN (hypertension) I10 ; Major depressive disorder, recurrent, moderate F33.1 ; Anxiety F41.9 ; Chronic tension headaches G44.229 ; Mitral valve prolapse I34.1 ; Arrhythmia as indication for cardiac pacemaker replacement I49.9 ; Dental caries, unspecified K02.9 ; Primary insomnia F51.01 and Hyperlipidemia E78.5 [place] [address], [place] [address]- 4656 Aug, Post-traumatic stress disorder, unspecified F43.10 ; Major depressive disorder, recurrent, moderate F33.1 and Problems related to release from jail Z65.2 [facility] [address], [place] [address]- 0671 Aug, Dental examination Z01.20 [facility] [address] [place] [address] [id number] Aug, Dental examination Z01.20 [facility] [id number] [place] [address] 65039- 4757 06 Aug, 2016 Post-traumatic stress disorder, unspecified F43.10 ; Major depressive disorder, recurrent, moderate F33.1 and Problems related to release from jail Z65.2 [facility] [id number] [place] [address] 07447- 4269 Aug, Chronic pain G89.29 and Primary insomnia F51.01 [facility] [id number] [place] [address] 48419- 7126 Jul, [facility] [id number] [place] [address] 33229- 2814 Jul, [facility] [id number] [place] [address] 45910- 2949 Jul, Nausea R11.0 [facility] [id number] [place] [address] 87962- 0568 Jul, Arrhythmia as indication for cardiac pacemaker replacement I49.9 [facility] [id number] [place] [address] 19732- 1002 Jul, Post-traumatic stress disorder, unspecified F43.10 ; Major depressive disorder, recurrent, moderate F33.1 and Problems related to release from jail Z65.2 [facility] [address] [place] [address] 59719- 4613 Jul, Anxiety F41.9 [place] [id number] [place] [address] 99060- 1188 08 Jul, 2016 Chronic pain G89.29 [place] [id number] [place] [address] 26541- 9718 Jul, Sleep apnea, obstructive G47.33 ; Hyperlipidemia E78.5 ; Chronic pain G89.29 ; Blindness and low vision H54.10 ; Major depressive disorder, recurrent, moderate F33.1 ; Anxiety F41.9 ; Mitral valve prolapse I34.1 ; Arrhythmia as indication for cardiac pacemaker replacement I49.9 ; Primary insomnia F51.01 ; Bilateral headaches R51 and Environmental allergies Z91.[address] 80257- 6829 Jul, Post-traumatic stress disorder, unspecified F43.10 ; Major depressive disorder, recurrent, moderate F33.1 and Problems related to release from jail Z65.[address] 64411- 3287 June, Post-traumatic stress disorder, chronic F43.12 ; Anxiety F41.9 ; Problems related to release from jail Z65.2 ; Sleep apnea, obstructive G47.33 and Primary insomnia F51.01 [place] [id number] [place] [address] 97348- 1592 June, [place] [id number] [place] [address] 82251- 6444 June, [place] [address] 36766- 9180 June, [place] [id number] [place] [address] 31923- 0085 June, Chronic pain G89.29 [place] [id number] [place] [address] 15807- 2962 June, Chronic pain G89.29 [place] [id number] [place] [address] 41799- 7280 June, Lipoma of left lower extremity D17.24 ; Open wound T14.8 and Swelling of left lower extremity M79.89 [place] [id number] [place] [address] 90573- 3103 June, Post-traumatic stress disorder, unspecified F43.10 ; Major depressive disorder, recurrent, moderate F33.1 and Problems related to release from jail Z65.2 [place] [address] 11210- 1094 May, Lipoma of left lower extremity D17.24 ; Major depressive disorder, recurrent, moderate F33.1 ; Sleep apnea, obstructive G47.33 ; Hyperlipidemia E78.5 ; Obesity E66.9 ; HTN (hypertension) I10 ; Glaucoma H40.9 ; CAD (coronary artery disease) I25.10 ; Chronic tension headaches G44.229 ; Chronic pain G89.29 ; Anxiety F41.9 ; Nausea R11.0 and Primary insomnia F51.01 [place] [address] 82243- 3262 May, [place] [address] 61433- 9124 May, Chronic pain G89.29 [place] [address] 20038- 8522 May, [place] [id number] [place] [address] 12428- 6669 Apr, Post-traumatic stress disorder, unspecified F43.10 ; Major depressive disorder, recurrent, moderate F33.1 and Problems related to release from jail Z65.2 [place] [id number] [place] [address] 10916- 5341 Apr, Primary insomnia F51.01 ; Post-traumatic stress disorder, chronic F43.12 and Problems related to release from jail Z65.2 [place] [id number] [place] [address] 56703- 4586 Apr, Post-traumatic stress disorder, unspecified F43.10 ; Major depressive disorder, recurrent, moderate F33.1 and Problems related to release from jail Z65.2 [place] [id number] [place] [address] 72785- 6681 16 Apr, 2016 [place] [id number] [place] [address] 36051- 7478 16 Apr, 2016 Sleep apnea, obstructive G47.33 ; Chronic pain G89.29 ; HTN (hypertension) I10 ; Mitral valve prolapse I34.1 ; Shoulder pain, left M25.512 ; Arrhythmia as indication for cardiac pacemaker replacement I49.9 ; Glaucoma H40.9 ; Bilateral headaches R51 ; Environmental allergies Z91.09 ; Primary insomnia F51.01 and Nausea R11.0 [place] [id number] [place] [address] 58976- 4054 Apr, [place] [id number] [place] [address] 29547- 6916 Apr, [place] [id number] [place] [address] 72953- 1383 Apr, Post-traumatic stress disorder, unspecified F43.10 ; Major depressive disorder, recurrent, moderate F33.1 and Problems related to release from jail Z65.2 [place] [id number] [place] [address] 20697- 9488 Apr, HTN (hypertension) I10 [place] [id number] [place] [address] 94773- 6940 Apr, HTN (hypertension) I10 [place] [id number] [place] [address] 35743- 8300 14 Mar, 2016 Chronic pain G89.29 ; Primary insomnia F51.01 and Problems related to release from jail Z65.2 [place] [id number] [place] [address] 26386- 7781 07 Mar, 2016 Post-traumatic stress disorder, unspecified F43.10 ; Major depressive disorder, recurrent, moderate F33.1 and Problems related to release from jail Z65.2 [place] [place] [address] 63974- 1984 Feb, Post-traumatic stress disorder, unspecified F43.10 ; Major depressive disorder, recurrent, moderate F33.1 and Problems related to release from jail Z65.2 [place] [id number] [place] [address] 35096- 2686 Feb, Chronic tension headaches G44.229 [id number] [place] [address] 87789- 4681 Feb, Sleep apnea, obstructive G47.33 ; Obesity [...] pacemaker replacement I49.9 and Primary insomnia F51.01 [place] [id number] [place] [address] 19061- 6003 Feb, Post-traumatic stress disorder, unspecified F43.10 and Chronic pain G89.29 [address] [place] [address] 65640- 0257 Feb, [facility] [address] [place] [address] [id number] Feb, Dental caries K02.[id number] [place] [address] 41028- 3134 Feb, [address] 48235- 0139 Feb, Post-traumatic stress disorder, unspecified F43.10 ; Major depressive disorder, recurrent, moderate F33.1 and Problems related to release from jail Z65.2 [place] [id number] [place] [address] 82260- 6649 Jan, Sleep apnea, obstructive G47.33 and Chronic pain G89.29 [place] [address], [place] [address]- 6537 Jan, [place] [id number] [place] [address] 92556- 2757 14 Jan, 2016 Dental examination Z01.20 [place] [id number] [place] [address] 32787- 3551 Jan, [place] [id number] [place] [address] 61588- 1591 Jan, [place] [id number] [place] [address] 55522- 3452 Dec, Post-traumatic stress disorder, unspecified F43.10 ; Major depressive disorder, recurrent, moderate F33.1 and Problems related to release from jail Z65.2 [place] [id number] [place] [address] 62238- 8165 Dec, Encounter for immunization Z23 ; Problems related to release from jail Z65.2 ; Sleep apnea, obstructive G47.33 and Post-traumatic stress disorder, chronic F43.12 [place] [id number] [place] [address] 31149- 6004 18 Dec, 2015 Sleep apnea, obstructive G47.33 ; Hyperlipidemia E78.5 ; Chronic pain G89.29 ; Glaucoma H40.9 ; HTN (hypertension) I10 ; Post-traumatic stress disorder, unspecified F43.10 ; Anxiety F41.9 ; Chronic tension headaches G44.229 ; Mitral valve prolapse I34.1 and CAD (coronary artery disease) I25.10 [place] [address] [place] [address] 39553- 7712 15 Dec, 2015 Post-traumatic stress disorder, unspecified F43.10 ; Major depressive disorder, recurrent, moderate F33.1 and Problems related to release from jail Z65.2 [place] [id number] [place] [address] 64323- 9440 Nov, Chronic pain G89.29 [place] [id number] [address] Nov, Post-traumatic stress disorder, unspecified F43.10 ; Major depressive disorder, recurrent, moderate F33.1 and Problems related to release from jail Z65.2 [place] [id number], [place] [address] Oct, [place] [address] [place] [id number] [place] [address] [id number]- 4002 Oct, [place] [address] [place] [id number] [place] [address] 73601- 0611 Oct, Post-traumatic stress disorder, unspecified F43.10 ; Major depressive disorder, recurrent, moderate F33.1 and Problems related to release from jail Z65.2 [place] [address] [place] [id number] [place] [address] 23343- 9150 08 Oct, 2015 [place] [address] [place] [id number] [place] [address] 26715- 2292 07 Oct, 2015 Environmental allergies Z91.09 ; Cough R05 and Open-angle glaucoma of both eyes H40.10X0 [place] [id number] [address] Sep, [place] [address] [address] Sep, Post-traumatic stress disorder, unspecified F43.10 ; Major depressive disorder, recurrent, moderate F33.1 and Problems related to release from jail Z65.2 [place] [address], [place] [address] Sep, Chronic pain G89.29 [place] [address] [place] [id number] [place] [address] 31505- 0835 Sep, Pain in left shoulder M25.512 ; Pain in right shoulder M25.511 and Other chronic pain G89.29 [place] [address] [place] [id number] [id number] Sep, [facility], [place] [address], [place] [address] Sep, [facility] [place] [address] [address] Sep, [facility] [address] [id number] Aug, Dental examination Z01.20 [facility] [place] [id number] [place] [address] 93125- [address]26 Aug, Post-traumatic stress disorder, unspecified F43.10 ; Open- angle glaucoma of both eyes H40.10X0 and Problems related to release from jail Z65.2 [facility] [place] [id number] [place] [address]094- 8025 Aug, [facility] [place] [id number] [place] [address] 91067- 8342 Aug, Sleep apnea, obstructive G47.33 ; Obesity E66.9 ; Hyperlipidemia E78.5 ; Bilateral headaches R51 ; HTN (hypertension) I10 ; Post- traumatic stress disorder, unspecified F43.10 ; Anxiety F41.9 ; Neuropathy G62.9 ; Glaucoma H40.9 and Chronic pain G89.29 [facility] [id number] [id number] Aug, Encounter for dental examination Z01.20 [facility] [place] [address] [place] [address] 00788- 7454 Aug, Post-traumatic stress disorder, unspecified F43.10 ; Major depressive disorder, recurrent, moderate F33.1 and Problems related to release from jail Z65.2 [facility] [place] [address], [place] [address] Aug, [facility] [place] [address], [place] [address] Jul, [facility] [place] [id number], [place] [address] Jul, Post-traumatic stress disorder, unspecified F43.10 and Major depressive disorder, recurrent, moderate F33.1 [facility] [place] [address], [place] [address] Jul, [facility] [place] [address], [place] [address] Jul, [facility] [place] [id number] [place] [address] 22288- 4761 Jul, Chronic pain G89.29 [facility] [place] [id number] [place] [address] 00074- 1901 June, Post-traumatic stress disorder, unspecified F43.10 and Major depressive disorder, recurrent, moderate F33.1 [facility] [place] [address], [place] [address] June, [facility] [place] [id number] [place] [address] 36912- 7504 June, Chronic pain G89.29 [facility] [place] [id number] [place] [address] 00422- 7550 June, Post-traumatic stress disorder, unspecified F43.10 and Major depressive disorder, recurrent, moderate F33.1 [facility] [place] [address], [place] [address] May, Post-traumatic stress disorder, unspecified F43.10 and Major depressive disorder, recurrent, moderate F33.1 [facility] [place] [address], [place] [address] May, [facility] [place] [id number] [place] [address] 35892- 8846 May, [facility] [place] [address], [place] [address] May, [facility] [place] [id number] [place] [address] 24507- 2724 Apr, [facility] [place] [id number] [place] [address] 28646- 5543 Apr, Post-traumatic stress disorder, unspecified F43.10 and Sleep apnea, obstructive G47.33 [facility] [place] [id number] [place] [address] 59193- 4659 Apr, [facility] [place] [id number] [place] [address] 53622- 5415 Apr, Shoulder pain, left M25.512 [facility] [place] [id number] [place] [address] 41274- 8491 Apr, Post-traumatic stress disorder, unspecified F43.10 and Major depressive disorder, recurrent, moderate F33.1 [place] [id number] [place] [address] 02906- 4727 17 Apr, 2015 [facility] [place] [id number] [place] [address] 92648- 3846 Apr, [facility] [place] [id number] [place] [address] 43511- 3494 08 Apr, 2015 [facility] [place] [id number] [place] [address] 24589- 9976 Apr, Left shoulder pain M25.512 [facility] [place] [id number] [place] [address] 79514- 7732 Mar, [facility] [place] [id number] [place] [address] 13983- 5292 Mar, [facility] [place] [id number] [place] [address] 59479- 0188 Mar, [facility] [place] [id number] [place] [address] 55509- 6833 12 Mar, 2015 Sleep apnea, obstructive G47.33 ; Obesity E66.9 ; Chronic pain G89.29 ; Hyperlipidemia E78.5 ; HTN (hypertension) I10 ; Blindness and low vision H54.10 ; Major depressive disorder, recurrent, moderate F33.1 and Anxiety F41.9 [place] [id number] [place] [address] 24707- 3262 Mar, [place] [id number] [place] [address] 34598- 5984 Mar, Post-traumatic stress disorder, unspecified F43.10 and Major depressive disorder, recurrent, moderate F33.1 [place] [id number] [place] [address] 17081- 4542 Mar, [place] [id number] [place] [address] 82609- 6829 04 Mar, 2015 HTN (hypertension) I10 ; Blindness and low vision H54.10 ; Obesity E66.9 ; Hyperlipidemia E78.5 ; Glaucoma H40.9 ; Chronic pain G89.29 and CAD (coronary artery disease) I25.10 [place] [id number] [place] [address] 90478- 5814 Feb, [place] [id number] [place] [address] 92919- 1081 Feb, Post-traumatic stress disorder, unspecified F43.10 ; Obesity E66.9 ; Sleep apnea, obstructive G47.33 and Open-angle glaucoma of both eyes H40.10X0 [place] [id number] [place] [address] 26969- 3411 Feb, Post-traumatic stress disorder, unspecified F43.10 and Major depressive disorder, recurrent, moderate F33.1 [place] [id number] [place] [address] 61772- 5600 Feb, [address] [address]- 3766 Feb, [place] [id number] [place] [address] 73171- 3445 Feb, HTN (hypertension) I10 ; Post-traumatic stress disorder, unspecified F43.10 ; Blindness and low vision H54.10 ; Obesity E66.9 ; Hyperlipidemia E78.5 ; Chronic pain G89.29 ; Glaucoma H40.9 ; Mitral valve prolapse I34.1 and Bilateral headaches R51 [place] [id number] [place] [address] 98107- 6747 Feb, [place] [address] 7[address]37- 9212 Feb, Post-traumatic stress disorder, unspecified F43.10 and Major depressive disorder, recurrent, moderate F33.1 [place] [address] 63812- 2113 Feb, [place] [address] 32773- 5308 Feb, [place] [address] 55799- 4179 Jan, [place] [address] 73518- 9087 Jan, [place] [address] 29083- 6191 Jan, Obesity E66.9 ; HTN (hypertension) I10 ; Blindness and low vision H54.10 ; Major depressive disorder, recurrent, moderate F33.1 ; Glaucoma H40.9 ; Hyperlipidemia E78.5 ; Sleep apnea, obstructive G47.33 ; Chronic pain G89.29 ; Anxiety F41.9 ; Chronic tension headaches G44.229 and Cough R05 [place] [id number] [place] [address] 39656- 4773 Jan, [address] 29980- 7586 Jan, [place] [id number] [place] [address] 55481- 5908 Jan, Post-traumatic stress disorder, unspecified F43.10 ; Obesity E66.9 ; Sleep apnea, obstructive G47.33 and Open-angle glaucoma of both eyes H40.10X0 [place] [id number] [place] [address] Jan, [address] 5900 Jan, Post-traumatic stress disorder, unspecified F43.10 and Major depressive disorder, recurrent, moderate F33.1 [place] [address]88016- 5478 Dec, [place] [address]33760- 5039 Dec, Sleep apnea, obstructive G47.33 ; Obesity E66.9 ; Hyperlipidemia E78.5 ; Glaucoma H40.9 ; Chronic pain G89.29 ; HTN (hypertension ) I10 ; Blindness and low vision H54.10 ; Anxiety F41.9 and CAD (coronary artery disease) I25.10 [place] [address] 30442- 0194 Nov, [address] 919530- 1065 Nov, [place] [address] 83170- 2822 Nov, [address] 64116- 4652 Nov, [place] [address] [address] [id number]- 2969 Nov, [address] 04187- 8400 Nov, Encounter for immunization Z23 ; Sleep apnea, obstructive G47.33 ; Obesity E66.9 ; Hyperlipidemia E78.5 ; Glaucoma H40.9 ; Chronic pain G89.29 ; Anxiety F41.9 ; Chronic tension headaches G44.229 and HTN (hypertension ) I10 [address] [place] [address]- 9899 19 Nov, 2014 [facility] [place] [id number] [place] [address] 28272- 5844 14 Nov, 2014 [facility] [place] [id number] [place] [address] 10807- 3176 06 Nov, 2014 Dizziness R42 [facility] [place] [id number] [place] [address] 16157- 9866 Nov, [facility] [place] [id number] [place] [address] 37501- 6538 29 Oct, 2014 [facility] [place] [id number] [place] [address] 68329- 9796 28 Oct, 2014 [facility] [place] [id number] [place] [address] 74549- 8670 Oct, [facility] [place] [id number] [place] [address] 54899- 7500 Oct, [facility] [place] [id number] [place] [address] 02501- 1543 17 Oct, 2014 Dizziness 780.4 ; Essential hypertension 401.9 ; Obesity 278.00 ; Hyperlipidemia 272.4 ; Chronic pain 338.29 ; Glaucoma 365.9 and Anxiety 300.00 [facility] [place] [id number] [place] [address] 34866- 5225 Oct, Essential hypertension 401.9 ; Hyperlipidemia 272.4 ; Glaucoma 365.9 ; Obesity 278.00 ; Chronic pain 338.29 and Allergy to insects V15.06 [facility] [place] [id number] [place] [address] 20005- 1570 Sep, [facility] [place] [id number] [place] [address] 80908- 7942 Sep, [facility] [place] [id number] [place] [address] 42924- 3632 Sep, [facility] [place] [id number] [place] [address] 48258- 6428 Sep, [facility] [place] [address] [facility] [id number] [place] [address]- 1146 Aug, Essential hypertension 401.9 ; Obesity 278.00 ; Hyperlipidemia 272.4 ; Glaucoma 365.9 ; Lipoma 214.9 ; Mitral valve prolapse 424.0 ; Angina at rest 413.9 ; Lymphedema 457.1 and Chronic pain 338.29 IMMUNIZATIONS No Known Immunizations SOCIAL HISTORY Never Assessed REASON FOR VISIT Hydrocodone and Xanax 12/03 PLAN OF CARE VITAL SIGNS MEDICATIONS Medication Instructions Dosage Frequency Start Date End Date Duration Status Xanax 1 MG Orally Twice a day for anxiety 1 tablet 30 days Active Hydrocodone-Acetaminophen 7.5-325 MG Orally 4 times a day 1 tablet 6h Nov, 28 days Active RESULTS No Results PROCEDURES [...]
--- OUTSIDE RECORDS SUMMARY | 2018-02-04 15:11 | XMS REPORT ---
Author Author EDUIN CARDONA [facility] Address [address] [place] [address] Care Team Providers Care Heel Splitter Name Role Phone EDUIN CARDONA Unavailable PROBLEMS Type Condition ICD9-CM Code [id number] Code Onset Dates Condition Status SNOMED Code Problem Glaucoma H40.9 Active 73790377 Problem Problems related to release from shelter Z65.2 Active 36515738 Problem Sleep apnea, obstructive G47.33 Active 57010109 Problem Encounter for dental examination Z01.20 Active 340774797 Problem Chronic pain G89.29 Active 16192194 Problem Bilateral headaches R51 Active 024594352 Problem Obesity E66.9 Active 707585927 Problem Post-traumatic stress disorder, chronic F43.12 Active 332822864 Problem Arrhythmia as indication for cardiac pacemaker replacement I49.9 Active 11520480 Problem Environmental allergies Z91.09 Active 332964985 Problem Morbid (severe) obesity due to excess calories E66.01 Active 883233833 Problem Other male erectile dysfunction N52.8 Active 925824448 Problem 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 Active 090507762 Problem HTN (hypertension) I10 Active 78005749 Problem Hyperlipidemia E78.5 Active 55809948 Problem Post-traumatic stress disorder, unspecified F43.10 Active 17029854 Problem Primary insomnia F51.01 Active 4429458 Problem Other abnormal findings in specimens from other organs, systems and tissues R89.8 Active 202262417 Problem Body mass index (BMI) of 40.0-44.9 in adult Z68.41 Active 598605690 Problem Cough R05 Active 80433944 Problem Major depressive disorder, recurrent, moderate F33.1 Active 56672801 Problem Chronic tension headaches G44.229 Active 858331326 Problem Anxiety F41.9 Active 54571778 Problem CAD (coronary artery disease) I25.10 Active 24758347 Problem Shoulder pain, left M25.512 Active 30690305 Problem Open-angle glaucoma of both eyes H40.10X0 Active 78771198 Problem Mitral valve prolapse I34.1 Active 792297409 ALLERGIES Substance Reaction Event Type Date Status Xalatan upper lid irritation Drug Allergy June, Active Penicillin G Potassium rash Drug Allergy June, Active Aspirin nausea and vomiting Drug Allergy June, Active Wasp venom anaphylaxis Non Drug Allergy June, Active SOCIAL HISTORY Never Assessed PLAN OF CARE Activity Details Follow Up 2 - 3 Days Reason:wednesday am VITAL SIGNS Height 67 in 2016-06-15 Weight 272 lbs 2016-06-15 Temperature 97.9 degrees Fahrenheit 2016-06-15 Heart Rate 84 bpm 2016-06-15 Respiratory Rate 18 2016-06-15 BMI 42.60 kg/m2 2016-06-15 Blood pressure systolic 132 mmHg 2016-06-15 Blood pressure diastolic 84 mmHg 2016-06-15 MEDICATIONS Medication Instructions Dosage Frequency Start Date End Date Duration Status Cardizem CD 300 MG Orally Once a day 1 capsule 24h Active Gabapentin 300 MG TAKE ONE CAPSULE BY MOUTH TWICE DAILY Active Topamax 100 mg Orally Twice a day 1 tablet 12h Active Metoprolol Succinate ER 200 mg Orally Once a day 1 tablet 24h Active Atorvastatin Calcium 40 mg Orally Once a day 1 tablet 24h Active Zolpidem Tartrate 10 mg Orally Once a day ONE-HALF TO ONE TABLET 24h Active Percocet 5-325 MG Orally every 6 hrs 1 tablet as needed 6h Active EPINEPHrine HCl 0.3 mg as directed Oct, Active Nitrostat 0.4 MG Sublingual every 5 minutes x 3 PRN 1 tablet Active Furosemide 40 MG TAKE ONE TABLET BY MOUTH ONCE DAILY Active Zofran ODT 4 MG Orally every 8 hrs 1 tablet on the tongue and allow to dissolve 8h Apr, Active Timolol 0.5 % Ophthalmic 2 times a day 1 drop into both eyes 12h Dec, Active Xanax 1 MG Orally Twice a day for anxiety 1 tablet Active Hydrocodone-Acetaminophen 7.5-325 MG Orally 3 times per day 1 tablet as needed May, June, Active RESULTS Name Result Date Reference Range CBC 2016-06-15 WBC 7.0 3.4-10.8 RBC 5.23 4.14-5.80 Hemoglobin 15.7 12.6-17.7 Hematocrit 45.7 37.5-51.0 MCV 87 79-97 MCH 30.0 26.6-33.0 MCHC 34.4 31.5-35.7 RDW 13.7 12.3-15.4 Platelets 173 150-379 Neutrophils 63 Lymphs 27 Monocytes 9 Eos 1 Basos 0 Immature Cells Neutrophils (Absolute) 4.3 1.4-7.0 Lymphs (Absolute) 1.9 0.7-3.1 Monocytes(Absolute) 0.6 0.1-0.9 Eos (Absolute) 0.1 0.0-0.4 Baso (Absolute) 0.0 0.0-0.2 Immature Granulocytes 0 Immature Grans (Abs) 0.0 0.0-0.1 [facility] Hematology Comments: PROCEDURES Procedure Date Ordered Result Body Site LAB NOT BILLED BY [facility] June 15, 2016 VENIPUNCT, ROUTINE* June 15, 2016 IMMUNIZATIONS No Known Immunizations MEDICAL (GENERAL) [...]
--- OUTSIDE RECORDS SUMMARY | 2018-02-04 15:12 | XMS REPORT ---
Author Author EDUIN CARDONA [facility] Address [address] [place] [address] Care Team Providers Care Dry Cleaning Manager Name Role Phone EDUIN CARDONA Unavailable PROBLEMS Type Condition ICD9-CM Code [id number] Code Onset Dates Condition Status SNOMED Code Problem Glaucoma H40.9 Active 12395912 Problem Problems related to release from assisted Z65.2 Active 21519047 Problem Sleep apnea, obstructive G47.33 Active 10473138 Problem Encounter for dental examination Z01.20 Active 150741059 Problem Chronic pain G89.29 Active 91184162 Problem Bilateral headaches R51 Active 090229584 Problem Obesity E66.9 Active 360885027 Problem Post-traumatic stress disorder, chronic F43.12 Active 332863717 Problem Arrhythmia as indication for cardiac pacemaker replacement I49.9 Active 38843274 Problem Environmental allergies Z91.09 Active 735534808 Problem Morbid (severe) obesity due to excess calories E66.01 Active 296670352 Problem Other male erectile dysfunction N52.8 Active 580625974 Problem 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 Active 943975477 Problem HTN (hypertension) I10 Active 29478488 Problem Hyperlipidemia E78.5 Active 61109486 Problem Post-traumatic stress disorder, unspecified F43.10 Active 23527131 Problem Primary insomnia F51.01 Active 6100286 Problem Other abnormal findings in specimens from other organs, systems and tissues R89.8 Active 157690681 Problem Body mass index (BMI) of 40.0-44.9 in adult Z68.41 Active 299558977 Problem Cough R05 Active 46403728 Problem Major depressive disorder, recurrent, moderate F33.1 Active 21103880 Problem Chronic tension headaches G44.229 Active 963393658 Problem Anxiety F41.9 Active 58022664 Problem CAD (coronary artery disease) I25.10 Active 56204713 Problem Shoulder pain, left M25.512 Active 68106607 Problem Open-angle glaucoma of both eyes H40.10X0 Active 71011169 Problem Mitral valve prolapse I34.1 Active 246628279 ALLERGIES No Information SOCIAL HISTORY Never Assessed PLAN OF CARE VITAL SIGNS MEDICATIONS Medication Instructions Dosage Frequency Start Date End Date Duration Status Cartia XT 300 MG Orally Once a day 1 capsule 24h June, 30 day(s ) Active RESULTS No Results PROCEDURES No Known [...]
--- OUTSIDE RECORDS SUMMARY | 2018-02-04 15:12 | XMS REPORT ---
Author Author EDUIN Ramos Organization [facility] Address [address] [place] [address] Care Team Providers Care Residential Insurance Inspector Name Role Phone EDUIN Ramos Unavailable PROBLEMS Type Condition ICD9-CM Code XYV68-YU Code Onset Dates Condition Status SNOMED Code Problem Environmental allergies Z91.09 Active 789650028 Problem Primary insomnia F51.01 Active 3509199 Problem Arrhythmia as indication for cardiac pacemaker replacement I49.9 Active 03746615 Problem Chronic pain syndrome G89.4 Active 339600935 Problem Sleep apnea, obstructive G47.33 Active 66134186 Problem Migraine without aura and without status migrainosus, not intractable G43.009 Active 813256429 Problem Hyperlipidemia E78.5 Active 34312351 Problem Myocarditis, unspecified chronicity, 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 Active 77025177 Problem Other male erectile dysfunction N52.8 Active 849756450 Problem Morbid (severe) obesity due to excess calories E66.01 Active 929011712 Problem 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 Active 207737696 Problem Body mass index (BMI) of 40.0-44.9 in adult Z68.41 Active 614839590 Problem Blindness and low vision H54.10 Active 229348301 Problem Chronic tension headaches G44.229 Active 382629017 Problem Chronic pain G89.29 Active 16851832 Problem HTN (hypertension) I10 Active 80335943 Problem Open-angle glaucoma of both eyes H40.10X0 Active 93094753 Problem Mitral valve prolapse I34.1 Active 285162239 Problem Anxiety F41.9 Active 75167718 Problem CAD (coronary artery disease) I25.10 Active 06143854 Problem Major depressive disorder, recurrent, moderate F33.1 Active 27767025 Problem Post-traumatic stress disorder, chronic F43.12 Active 846889089 ALLERGIES No Information ENCOUNTERS Encounter Location Date Diagnosis [facility] [address] [address] May, [facility] [address] [address] Apr, [place] [address] [address] Apr, [place] [address] [address] 13 Apr, 2017 Post-traumatic stress disorder, unspecified F43.10 ; Major depressive disorder, recurrent, moderate F33.1 and Problems related to release from longterm Z65.2 [place] [address] [address]- [address] 12 Apr, 2017 [place] [address] [address] 12 Apr, 2017 Chronic pain G89.29 ; 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 ; Morbid (severe) obesity due to excess calories E66.01 ; Anxiety F41.9 and BMI 40.0-44.9, adult Z68.41 [facility] [place] [address] [address] 10 Apr, 2017 Sore throat J02.9 and BMI 40.0-44.9, adult Z68.41 [place] [address] [address] 02 Apr, 2017 Left leg pain M79.605 [facility] [address] [id number] Mar, Dental examination Z01.20 [place] [address] [address] Mar, [facility] [address] [address] Mar, Cough R05 ; Viral gastroenteritis A08.4 and BMI 40.0-44.9, adult Z68.41 [place] [address] [address] Mar, Left leg pain M79.605 [place] [address] [place] [id number] [place] [address] 38820- 6357 Mar, Post-traumatic stress disorder, unspecified F43.10 ; Major depressive disorder, recurrent, moderate F33.1 and Problems related to release from longterm Z65.2 [facility] [address] [place] [id number] [place] [address] 61473- 7107 Feb, Left leg pain M79.605 [facility] [address] [place] [address] 53385- 6394 Feb, [place] [address] [place] [id number] [place] [address] 65150- 3225 Feb, BMI 40.0-44.9, adult Z68.41 ; Chronic pain syndrome G89.4 ; Migraine without aura and without status migrainosus, not intractable G43.009 ; Mitral valve prolapse I34.1 and 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 [place] [address] [place] [address] 58008- 8478 Feb, Post-traumatic stress disorder, chronic F43.12 ; Anxiety F41.9 ; Problems related to release from longterm Z65.2 and BMI 40.0-44.9, adult Z68.41 [place] [address] [place] [address] 65221- 0157 Feb, Post-traumatic stress disorder, unspecified F43.10 ; Major depressive disorder, recurrent, moderate F33.1 and Problems related to release from longterm Z65.2 [place] [address] [place] [address] 17275- 5068 Feb, Left leg pain M79.605 [facility] [address] [place] [id number] [place] [address] 12654- 0093 Jan, Post-traumatic stress disorder, unspecified F43.10 ; Major depressive disorder, recurrent, moderate F33.1 and Problems related to release from longterm Z65.2 [facility] [address] [address] Jan, [facility] [address] [place] [address] 92986- 2206 Jan, [facility] [address] [address] Jan, Anxiety F41.9 [facility] [address] [place] [id number] [place] [address] 37021- 3761 Jan, Left leg pain M79.605 [place] [address] [place] [address] 25193- 5895 Dec, Left leg pain M79.605 [facility] [address] [place] [id number] [place] [address] 79936- 6881 Dec, [place] [address] [place] [id number] [place] [address] 40711- 0035 15 Dec, 2016 Post-traumatic stress disorder, unspecified F43.10 ; Major depressive disorder, recurrent, moderate F33.1 and Problems related to release from longterm Z65.2 [place] [address] [place] [address] 81908- 5622 31 Nov, 2016 Chronic pain G89.29 and Anxiety F41.9 [place] [address] [address] 24 Nov, 2016 Chronic pain G89.29 and Anxiety F41.9 [place] [address] [address] 0[address] 16 Nov, 2016 Post-traumatic stress disorder, unspecified F43.10 ; Major depressive disorder, recurrent, moderate F33.1 and Problems related to release from longterm Z65.2 [place] [address], [place] [address] 9[address] 09 Nov, 2016 Other abnormal findings in specimens from other organs, systems and tissues R89.8 ; Other male erectile dysfunction N52.8 ; Body mass index (BMI) of 40.0-44.9 in adult Z68.41 and Morbid (severe) obesity due to excess calories E66.01 [place] [address] [place] [id number] [place] [address] 42989- 2174 02 Nov, 2016 Post-traumatic stress disorder, unspecified F43.10 ; Major depressive disorder, recurrent, moderate F33.1 and Problems related to release from longterm Z65.2 [facility] [address] [place] [address] [id number] 29 Oct, 2016 Dental examination Z01.20 [facility] [address] [place] [id number] [place] [address] 26422- 6932 Oct, [place] [address] [address]- 79[address] Oct, Encounter for immunization Z23 [place] [address] [place] [id number] [place] [address] 47643- 9307 Oct, Chronic pain G89.29 ; Anxiety F41.9 ; Arrhythmia as indication for cardiac pacemaker replacement I49.9 and Glaucoma H40.9 [facility] [address] [place] [id number] [place] [address] 89005- 9345 Oct, Anxiety F41.9 ; Post-traumatic stress disorder, chronic F43.12 and Problems related to release from longterm Z65.2 [place] [address] [place] [id number] [place] [address] 86857- 2578 Oct, Post-traumatic stress disorder, unspecified F43.10 ; Major depressive disorder, recurrent, moderate F33.1 and Problems related to release from longterm Z65.2 [facility] [address] [place] [address] 21596- 1650 Sep, Chronic pain G89.29 and Anxiety F41.9 [place] [address] [place] [id number] [place] [address] 03341- 9739 Sep, Post-traumatic stress disorder, unspecified F43.10 ; Major depressive disorder, recurrent, moderate F33.1 and Problems related to release from longterm Z65.2 [place] [address], [place] [address]- [address] 11 Sep, 2016 Post-traumatic stress disorder, unspecified F43.10 ; Major depressive disorder, recurrent, moderate F33.1 and Problems related to release from longterm Z65.2 [place] [address] [place] [id number] [place] [address] 05155- 0694 Sep, Chronic pain G89.29 [place] [address] [place] [id number] [place] [address] 33530- 5370 Aug, Dental caries, unspecified K02.9 [place] [address] [place] [id number] [place] [address] 14565- 0857 Aug, Sleep apnea, obstructive G47.33 ; Obesity E66.9 ; Chronic pain G89.29 ; HTN (hypertension) I10 ; Major depressive disorder, recurrent, moderate F33.1 ; Anxiety F41.9 ; Chronic tension headaches G44.229 ; Mitral valve prolapse I34.1 ; Arrhythmia as indication for cardiac pacemaker replacement I49.9 ; Dental caries, unspecified K02.9 ; Primary insomnia F51.01 and Hyperlipidemia E78.5 [place] [address] [place] [id number] [place] [address] 96825- 5823 Aug, Post-traumatic stress disorder, unspecified F43.10 ; Major depressive disorder, recurrent, moderate F33.1 and Problems related to release from longterm Z65.2 [place] [address], [place] [address]- 6[address] Aug, Dental examination Z01.20 [facility] [address] [place] [id number] [place] [address] [id number] Aug, Dental examination Z01.20 [place] [address] [place] [id number] [place] [address] 28860- 6500 Aug, Post-traumatic stress disorder, unspecified F43.10 ; Major depressive disorder, recurrent, moderate F33.1 and Problems related to release from longterm Z65.2 [place] [address] [place] [id number] [place] [address] 14269- 6750 Aug, Chronic pain G89.29 and Primary insomnia F51.01 [place] [address] [place] [address] 87842- 4003 Jul, [place] [address] [place] [id number] [place] [address] 36344- 4273 Jul, [place] [address] [place] [id number] [place] [address] 67461- 6758 Jul, Nausea R11.0 [place] [address] [place] [id number] [place] [address] 01687- 9348 Jul, Arrhythmia as indication for cardiac pacemaker replacement I49.9 [place] [address] [place] [id number] [place] [address] 94132- 7104 Jul, Post-traumatic stress disorder, unspecified F43.10 ; Major depressive disorder, recurrent, moderate F33.1 and Problems related to release from longterm Z65.2 [place] [address] [place] [id number] [place] [address] 26239- 1757 09 Jul, 2016 Anxiety F41.9 [place] [address] [place] [id number] [place] [address] 31515- 3955 08 Jul, 2016 Chronic pain G89.29 [place] [address] [place] [id number] [place] [address] 54738- 4835 02 Jul, 2016 Sleep apnea, obstructive G47.33 ; Hyperlipidemia E78.5 ; Chronic pain G89.29 ; Blindness and low vision H54.10 ; Major depressive disorder, recurrent, moderate F33.1 ; Anxiety F41.9 ; Mitral valve prolapse I34.1 ; Arrhythmia as indication for cardiac pacemaker replacement I49.9 ; Primary insomnia F51.01 ; Bilateral headaches R51 and Environmental allergies Z91.09 [place] [address] [place] [address] 01736- 3402 Jul, Post-traumatic stress disorder, unspecified F43.10 ; Major depressive disorder, recurrent, moderate F33.1 and Problems related to release from longterm Z65.2 [place] [address], [place] [address]- 3[address] June, Post-traumatic stress disorder, chronic F43.12 ; Anxiety F41.9 ; Problems related to release from longterm Z65.2 ; Sleep apnea, obstructive G47.33 and Primary insomnia F51.01 [place] [address], [place] [address]- 4784 June, [place] [address] [place] [id number] [place] [address] 93469- 1511 June, [place] [address] [place] [id number] [place] [address] 13697- 1512 June, [place] [address] [place] [id number] [place] [address] 08393- 3924 June, Chronic pain G89.29 [place] [address] [place] [id number] [place] [address] 99033- 7427 June, Chronic pain G89.29 [place] [address] [place] [id number] [place] [address] 36997- 5913 June, Lipoma of left lower extremity D17.24 ; Open wound T14.8 and Swelling of left lower extremity M79.89 [place] [address], [place] [address]- 5716 June, Post-traumatic stress disorder, unspecified F43.10 ; Major depressive disorder, recurrent, moderate F33.1 and Problems related to release from longterm Z65.2 [place] [address], [place] [address]- 8435 May, Lipoma of left lower extremity D17.24 ; Major depressive disorder, recurrent, moderate F33.1 ; Sleep apnea, obstructive G47.33 ; Hyperlipidemia E78.5 ; Obesity E66.9 ; HTN (hypertension) I10 ; Glaucoma H40.9 ; CAD (coronary artery disease) I25.10 ; Chronic tension headaches G44.229 ; Chronic pain G89.29 ; Anxiety F41.9 ; Nausea R11.0 and Primary insomnia F51.01 [place] [id number] [place] [address] 67469- 3647 May, [place] [id number] [place] [address] 61744- 4611 11 May, 2016 Chronic pain G89.29 [place] [id number] [place] [address] 99497- 6825 May, [address] [address]- 2242 31 Apr, 2016 Post-traumatic stress disorder, unspecified F43.10 ; Major depressive disorder, recurrent, moderate F33.1 and Problems related to release from longterm Z65.2 [place] [id number] [place] [address] 68039- 0748 28 Apr, 2016 Primary insomnia F51.01 ; Post-traumatic stress disorder, chronic F43.12 and Problems related to release from longterm Z65.2 [place] [id number] [place] [address] 14522- 9228 17 Apr, 2016 Post-traumatic stress disorder, unspecified F43.10 ; Major depressive disorder, recurrent, moderate F33.1 and Problems related to release from longterm Z65.2 [place] [id number] [place] [address] 82851- 3276 16 Apr, 2016 [place] [id number] [place] [address] 05205- 0743 Apr, Sleep apnea, obstructive G47.33 ; Chronic pain G89.29 ; HTN (hypertension) I10 ; Mitral valve prolapse I34.1 ; Shoulder pain, left M25.512 ; Arrhythmia as indication for cardiac pacemaker replacement I49.9 ; Glaucoma H40.9 ; Bilateral headaches R51 ; Environmental allergies Z91.09 ; Primary insomnia F51.01 and Nausea R11.0 [place] [id number] [place] [address] 96398- 1354 15 Apr, 2016 [place] [id number] [place] [address] 90202- 2336 Apr, [place] [address] [place] [address] Apr, Post-traumatic stress disorder, unspecified F43.10 ; Major depressive disorder, recurrent, moderate F33.1 and Problems related to release from longterm Z65.2 [place] [address] [place] [id number] [place] [address] 97706- 1950 Apr, HTN (hypertension) I10 [place] [address] [place] [id number] [place] [address] 4850 Apr, HTN (hypertension) I10 [place] [address] [place] [id number] [place] [address] 9[address] 14 Mar, 2016 Chronic pain G89.29 ; Primary insomnia F51.01 and Problems related to release from longterm Z65.2 [place] [address] [place] [id number] [place] [address] 23362- 3183 07 Mar, 2016 Post-traumatic stress disorder, unspecified F43.10 ; Major depressive disorder, recurrent, moderate F33.1 and Problems related to release from longterm Z65.2 [place] [address] [place] [id number] [place] [address] 32423- 1778 Feb, Post-traumatic stress disorder, unspecified F43.10 ; Major depressive disorder, recurrent, moderate F33.1 and Problems related to release from longterm Z65.2 [place] [address] [place] [address] 86091- 8759 Feb, Chronic tension headaches G44.229 [place] [address] [place] [address] 12065- 9430 Feb, Sleep apnea, obstructive G47.33 ; Obesity [...] pacemaker replacement I49.9 and Primary insomnia F51.01 [facility] [address] [place] [id number] [place] [address] 44617- 7181 17 Feb, 2016 Post-traumatic stress disorder, unspecified F43.10 and Chronic pain G89.29 [facility] [address] [place] [id number] [place] [address] 40288- 8490 Feb, [facility] [address] [place] [id number] [place] [address] [id number] Feb, Dental caries K02.9 [facility] [address] [address]- 2024 Feb, [facility] [address] [place] [id number] [place] [address] 80284- 9787 Feb, Post-traumatic stress disorder, unspecified F43.10 ; Major depressive disorder, recurrent, moderate F33.1 and Problems related to release from longterm Z65.2 [facility] [address] [place] [id number] [place] [address] 15357- 5992 Jan, Sleep apnea, obstructive G47.33 and Chronic pain G89.29 [facility] [address] [place] [id number] [place] [address] 72606- 0455 Jan, [facility] [address] [place] [id number] [place] [address] 24467- 9223 Jan, Dental examination Z01.20 [facility] [address] [place] [address] 16064- 4947 Jan, [facility] [address] [place] [id number] [place] [address] 53516- 8087 Jan, [facility] [address] [place] [id number] [place] [address] 28467- 7640 Dec, Post-traumatic stress disorder, unspecified F43.10 ; Major depressive disorder, recurrent, moderate F33.1 and Problems related to release from longterm Z65.2 [place] [address], [place] [address]- 3379 Dec, Encounter for immunization Z23 ; Problems related to release from longterm Z65.2 ; Sleep apnea, obstructive G47.33 and Post-traumatic stress disorder, chronic F43.12 [place] [address] [place] [id number] [place] [address] 62366- 4655 18 Dec, 2015 Sleep apnea, obstructive G47.33 ; Hyperlipidemia E78.5 ; Chronic pain G89.29 ; Glaucoma H40.9 ; HTN (hypertension) I10 ; Post-traumatic stress disorder, unspecified F43.10 ; Anxiety F41.9 ; Chronic tension headaches G44.229 ; Mitral valve prolapse I34.1 and CAD (coronary artery disease) I25.10 [place] [address] [place] [id number] [place] [address] 66865- 2474 15 Dec, 2015 Post-traumatic stress disorder, unspecified F43.10 ; Major depressive disorder, recurrent, moderate F33.1 and Problems related to release from longterm Z65.2 [place] [address] [place] [id number] [place] [address] 90915- 0225 Nov, Chronic pain G89.29 [place] [address] [place] [id number] [place] [address] 11270- 0813 Nov, Post-traumatic stress disorder, unspecified F43.10 ; Major depressive disorder, recurrent, moderate F33.1 and Problems related to release from longterm Z65.2 [place] [address] [place] [address] 63426- 4690 Oct, [place] [address] [place] [id number] [place] [address] 49423- 1507 Oct, [place] [address] [place] [id number] [place] [address] 69331- 5788 16 Oct, 2015 Post-traumatic stress disorder, unspecified F43.10 ; Major depressive disorder, recurrent, moderate F33.1 and Problems related to release from longterm Z65.2 [place] [address] [place] [id number] [place] [address] 19992- 2773 Oct, [facility] [address] [place] [id number] [place] [address] 65862- 9145 Oct, Environmental allergies Z91.09 ; Cough R05 and Open-angle glaucoma of both eyes H40.10X0 [facility] [address] [place] [id number] [place] [address] 35250- 8548 Sep, [facility] [address] 71525- 4714 Sep, Post-traumatic stress disorder, unspecified F43.10 ; Major depressive disorder, recurrent, moderate F33.1 and Problems related to release from longterm Z65.2 [place] [address] [place] [id number] [place] [address] 22078- 1294 Sep, Chronic pain G89.29 [place] [address] [place] [id number] [place] [address] 41502- 1252 Sep, Pain in left shoulder M25.512 ; Pain in right shoulder M25.511 and Other chronic pain G89.29 [place] [address] [place] [id number] [place] [address] 94516- 4750 Sep, [place] [address] [place] [id number] [place] [address] 60330- 9121 Sep, [facility] [address] [place] [address] 59075- 6272 Sep, [facility] [address] [place] [id number] [place] [address] [id number] Aug, Dental examination Z01.20 [facility] [address] [place] [id number] [place] [address] 09140- 8735 Aug, Post-traumatic stress disorder, unspecified F43.10 ; Open- angle glaucoma of both eyes H40.10X0 and Problems related to release from longterm Z65.2 [facility] [address] [place] [address] 33171- 7831 Aug, [place] [address] [place] [address] 40505- 6302 Aug, Sleep apnea, obstructive G47.33 ; Obesity E66.9 ; Hyperlipidemia E78.5 ; Bilateral headaches R51 ; HTN (hypertension) I10 ; Post- traumatic stress disorder, unspecified F43.10 ; Anxiety F41.9 ; Neuropathy G62.9 ; Glaucoma H40.9 and Chronic pain G89.29 [facility] [address] [place] [address] [id number] Aug, Encounter for dental examination Z01.20 [facility] [address] [place] [id number] [place] [address] 57405- 4841 Aug, Post-traumatic stress disorder, unspecified F43.10 ; Major depressive disorder, recurrent, moderate F33.1 and Problems related to release from longterm Z65.2 [place] [address] [place] [id number] [place] [address] 23217- 3624 Aug, [facility] [address] [place] [id number] [place] [address] 07740- 2271 Jul, [facility] [address] [place] [id number] [place] [address] 01529- 1568 Jul, Post-traumatic stress disorder, unspecified F43.10 and Major depressive disorder, recurrent, moderate F33.1 [facility] [address] [place] [id number] [place] [address] 08012- 8549 Jul, [facility] [address] [place] [id number] [place] [address] 90241- 9054 Jul, [facility] [address] [place] [address] 03968- 2965 Jul, Chronic pain G89.29 [facility] [address] [place] [id number] [place] [address] 59415- 7611 June, Post-traumatic stress disorder, unspecified F43.10 and Major depressive disorder, recurrent, moderate F33.1 [place] [address] [place] [id number] [place] [address] 93085- 3450 June, [facility] [id number] [place] [address] 63760- 4693 June, Chronic pain G89.29 [facility] [address] [place] [id number] [place] [address] 422508- 5132 June, Post-traumatic stress disorder, unspecified F43.10 and Major depressive disorder, recurrent, moderate F33.1 [facility] [address] [place] [id number] [place] [address] 09802- 9606 May, Post-traumatic stress disorder, unspecified F43.10 and Major depressive disorder, recurrent, moderate F33.1 [facility] [address] [place] [id number] [place] [address] 82297- 4591 May, [facility] [id number] [place] [address] 69956- 9271 May, [facility] [id number] [place] [address] 86252- 2938 May, [facility] [id number] [place] [address] 16774- 2673 Apr, [facility] [id number] [place] [address] 86464- 4695 Apr, Post-traumatic stress disorder, unspecified F43.10 and Sleep apnea, obstructive G47.33 [facility] [id number] [place] [address] 48091- 2636 Apr, [facility] [id number] [place] [address] 88363- 9499 Apr, Shoulder pain, left M25.512 [facility] [id number] [place] [address] 87425- 5920 Apr, Post-traumatic stress disorder, unspecified F43.10 and Major depressive disorder, recurrent, moderate F33.1 [facility] [id number] [place] [address] 76022- 3271 Apr, [facility] [address] [address] 9[address] Apr, [facility] [id number] [place] [address] 21776- 6499 Apr, [facility] [address], [place] [address] 2265 Apr, Left shoulder pain M25.512 [facility] [id number] [place] [address] 31064- 3468 Mar, [facility] [id number] [place] [address] 09324- 7623 Mar, [facility] [id number] [place] [address] 03354- 2214 Mar, [facility] [id number] [place] [address] 63798- 0571 Mar, Sleep apnea, obstructive G47.33 ; Obesity E66.9 ; Chronic pain G89.29 ; Hyperlipidemia E78.5 ; HTN (hypertension) I10 ; Blindness and low vision H54.10 ; Major depressive disorder, recurrent, moderate F33.1 and Anxiety F41.9 [facility] [address] [address] 9958 Mar, [facility] [id number] [place] [address] 23872- 4326 Mar, Post-traumatic stress disorder, unspecified F43.10 and Major depressive disorder, recurrent, moderate F33.1 [facility] [address], [place] [address] 7535 Mar, [facility] [id number] [place] [address] 45993- 8024 04 Mar, 2015 HTN (hypertension) I10 ; Blindness and low vision H54.10 ; Obesity E66.9 ; Hyperlipidemia E78.5 ; Glaucoma H40.9 ; Chronic pain G89.29 and CAD (coronary artery disease) I25.10 [facility] [id number] [place] [address] 16647- 9069 Feb, [facility] [place] [id number]- 4094 Feb, Post-traumatic stress disorder, unspecified F43.10 ; Obesity E66.9 ; Sleep apnea, obstructive G47.33 and Open-angle glaucoma of both eyes H40.10X0 [address] [address]- 2257 Feb, Post-traumatic stress disorder, unspecified F43.10 and Major depressive disorder, recurrent, moderate F33.[address] [address]26- 4784 Feb, [address] 33517- 1466 Feb, [address] 50152- 7787 Feb, HTN (hypertension) I10 ; Post-traumatic stress disorder, unspecified F43.10 ; Blindness and low vision H54.10 ; Obesity E66.9 ; Hyperlipidemia E78.5 ; Chronic pain G89.29 ; Glaucoma H40.9 ; Mitral valve prolapse I34.1 and Bilateral headaches R51 [address] [address]285- 2809 Feb, [address] 10974- 8542 Feb, Post-traumatic stress disorder, unspecified F43.10 and Major depressive disorder, recurrent, moderate F33.[address] [address]20- 0173 Feb, [address] 09220- 7340 Feb, [place] [address]- 2546 Jan, [facility] [id number] [place] [address] Jan, [facility] [id number] [place] [address]- 6479 Jan, Obesity E66.9 ; HTN (hypertension) I10 ; Blindness and low vision H54.10 ; Major depressive disorder, recurrent, moderate F33.1 ; Glaucoma H40.9 ; Hyperlipidemia E78.5 ; Sleep apnea, obstructive G47.33 ; Chronic pain G89.29 ; Anxiety F41.9 ; Chronic tension headaches G44.229 and Cough R05 [facility] [id number] [place] [address]- [address] Jan, [facility] [id number] [place] [address] 084882- 9004 Jan, [facility] [id number] [place] [address] [address] Jan, Post-traumatic stress disorder, unspecified F43.10 ; Obesity E66.9 ; Sleep apnea, obstructive G47.33 and Open-angle glaucoma of both eyes H40.10X0 [facility] [id number] [place] [address] 22803- 2059 Jan, [facility] [id number] [place] [address] [address] Jan, Post-traumatic stress disorder, unspecified F43.10 and Major depressive disorder, recurrent, moderate F33.1 [facility] [id number] [place] [address] 06208- 2544 Dec, [facility] [id number] [place] [address]- 4648 Dec, Sleep apnea, obstructive G47.33 ; Obesity E66.9 ; Hyperlipidemia E78.5 ; Glaucoma H40.9 ; Chronic pain G89.29 ; HTN (hypertension ) I10 ; Blindness and low vision H54.10 ; Anxiety F41.9 and CAD (coronary artery disease) I25.10 [facility] [address], [place] [address]- 0897 Nov, [facility] [id number] [place] [address] 14635- 1419 Nov, [facility] [id number] [place] [address] 18603- 2547 Nov, [facility] [address] 36[address]- 2761 Nov, [facility] [id number] [place] [address] 24360- 0585 Nov, [facility] [id number] [place] [address] 79950- 9365 Nov, Encounter for immunization Z23 ; Sleep apnea, obstructive G47.33 ; Obesity E66.9 ; Hyperlipidemia E78.5 ; Glaucoma H40.9 ; Chronic pain G89.29 ; Anxiety F41.9 ; Chronic tension headaches G44.229 and HTN (hypertension ) I10 [facility] [id number] [place] [address] 64529- 3058 Nov, [facility] [id number] [place] [address] 68154- 4812 Nov, [facility] [id number] [place] [address] 61512- 5684 Nov, Dizziness R42 [facility] [id number] [place] [address] 48594- 3176 Nov, [facility] [id number] [place] [address] 72311- 3525 Oct, [facility] [id number] [place] [address] 31801- 4761 Oct, [facility] [id number] [place] [address] 78676- 4393 Oct, [facility] [address] [place] [address]- 3963 Oct, [facility] [id number] [place] [address] 64486- 6286 Oct, Dizziness 780.4 ; Essential hypertension 401.9 ; Obesity 278.00 ; Hyperlipidemia 272.4 ; Chronic pain 338.29 ; Glaucoma 365.9 and Anxiety 300.00 [facility] [address] 8[address]10- 3554 Oct, Essential hypertension 401.9 ; Hyperlipidemia 272.4 ; Glaucoma 365.9 ; Obesity 278.00 ; Chronic pain 338.29 and Allergy to insects V15.06 [facility] [address] 65007- 0129 Sep, [facility] [address] 74060- 4126 Sep, [facility] [address] 87410- 8195 Sep, [facility] [address] 42762- 0398 Sep, [facility] [address] 33806- 4678 Aug, Essential hypertension 401.9 ; Obesity 278.00 [...]
--- OUTSIDE RECORDS SUMMARY | 2018-02-04 15:13 | XMS REPORT ---
Author Author KODAK YBARRA Organization [facility] Address [address] [place] [address] Care Team Providers Care House Manager Name Role Phone KODAK YBARRA Unavailable PROBLEMS Type Condition ICD9-CM Code FYF77-YO Code Onset Dates Condition Status SNOMED Code Problem Arrhythmia as indication for cardiac pacemaker replacement I49.9 Active 59380100 Problem Body mass index (BMI) of 40.0-44.9 in adult Z68.41 Active 616293053 Problem Primary insomnia F51.01 Active 6874646 Problem Sarcoidosis D86.9 Active 13673161 Problem Chronic pain G89.29 Active 80591580 Problem Chronic pain syndrome G89.4 Active 584936811 Problem Sleep apnea, obstructive G47.33 Active 26043174 Problem Hyperlipidemia E78.5 Active 63920632 Problem Other male erectile dysfunction N52.8 Active 905456007 Problem Morbid (severe) obesity due to excess calories E66.01 Active 932758611 Problem Migraine without aura and without status migrainosus, not intractable G43.009 Active 454239824 Problem 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 Active 534739511 Problem Chronic tension headaches G44.229 Active 620051914 Problem Anxiety F41.9 Active 56840812 Problem HTN (hypertension) I10 Active 22334000 Problem Blindness and low vision H54.10 Active 971844370 Problem Mitral valve prolapse I34.1 Active 432904112 Problem CAD (coronary artery disease) I25.10 Active 39082394 Problem Major depressive disorder, recurrent, moderate F33.1 Active 99685335 Problem Post-traumatic stress disorder, chronic F43.12 Active 775844250 Problem Myocarditis, unspecified chronicity, 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 Active 29593516 Problem Open-angle glaucoma of both eyes H40.10X0 Active 03832432 Problem Environmental allergies Z91.09 Active 225377362 ALLERGIES No Information ENCOUNTERS Encounter Location Date Diagnosis [facility] [id number] [address] Jul, [facility] [address] [address] Jul, [facility] [address] [address] June, [facility] [id number] [address] June, [facility] [id number] [place] [address] 20622- 1831 June, [facility] [id number] [place] [address] 52266- 6880 June, Left leg pain M79.605 [facility] [id number] [place] [address] 05227- 5329 June, Sarcoidosis D86.9 [facility] [id number] [place] [address] 82587- 3989 June, [facility] [address] [address] 6[address] June, [facility] [id number] [place] [address] 15438- 3714 June, Left leg pain M79.605 [facility] [address] [address] 8[address] May, [facility] [address] [address] 4418 May, [facility] [address] [address] 8954 May, [facility] [id number] [address] 26[address] May, Left leg pain M79.605 [facility] [address] [address] May, Post-traumatic stress disorder, unspecified F43.10 ; Major depressive disorder, recurrent, moderate F33.1 and Problems related to release from fdc Z65.2 [address] [id number] [place] [address] 93673- 8402 04 May, 2017 Chronic pain G89.29 ; Anxiety F41.9 ; Chest pain, unspecified type R07.9 and BMI 40.0-44.9, adult Z68.41 [place] [id number] [place] [address] 90286- 1282 30 Apr, 2017 [address] [id number] [place] [address] 31917- 2362 29 Apr, 2017 Left leg pain M79.605 [place] [id number] [place] [address] 18352- 8947 27 Apr, 2017 Post-traumatic stress disorder, unspecified F43.10 ; Problems related to release from fdc Z65.2 ; Anxiety F41.9 and BMI 40.0-44.9 , adult Z68.41 [place] [id number] [place] [address] 06521- 3645 Apr, [place] [id number] [place] [address] 89640- 7901 Apr, Left leg pain M79.605 [place] [id number] [place] [address] 93339- 2955 13 Apr, 2017 Post-traumatic stress disorder, unspecified F43.10 ; Major depressive disorder, recurrent, moderate F33.1 and Problems related to release from fdc Z65.2 [place] [address] [place] [address] 19475- 6632 Apr, [place] [id number] [place] [address] 94792- 7776 Apr, Chronic pain G89.29 ; 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 [address] [address] -[address]11 20 Mar, 2017 Cough R05 ; Viral gastroenteritis A08.4 and BMI 40.0-44.9, adult Z68.41 [place] [address] 35248- 3866 Mar, Left leg pain M79.605 [place] [id number] [place] [address] 42798- 2007 06 Mar, 2017 Post-traumatic stress disorder, unspecified F43.10 ; Major depressive disorder, recurrent, moderate F33.1 and Problems related to release from fdc Z65.2 [place] [id number] [place] [address] 85221- 6651 Feb, Left leg pain M79.605 [place] [id number] [place] [address] 79566- 9386 Feb, [address] [address] 23587- 4655 Feb, BMI 40.0-44.9, adult Z68.41 ; Chronic pain syndrome G89.4 ; Migraine without aura and without status migrainosus, not intractable G43.009 ; Mitral valve prolapse I34.1 and 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 [address] [address] [place] [address] Feb, Post-traumatic stress disorder, chronic F43.12 ; Anxiety F41.9 ; Problems related to release from fdc Z65.2 and BMI 40.0-44.9, adult Z68.41 [facility] [id number] [place] [address] 32275- 9121 Feb, Post-traumatic stress disorder, unspecified F43.10 ; Major depressive disorder, recurrent, moderate F33.1 and Problems related to release from fdc Z65.2 [facility] [id number] [place] [address] 74438- 7961 Feb, Left leg pain M79.605 [facility] [id number] [place] [address] 42237- 4850 Jan, Post-traumatic stress disorder, unspecified F43.10 ; Major depressive disorder, recurrent, moderate F33.1 and Problems related to release from fdc Z65.2 [facility] [id number] [place] [address] 57749- 8771 Jan, [facility] [id number] [place] [address] 70841- 1706 Jan, [facility] [id number] [place] [address] 83659- 2209 Jan, Anxiety F41.9 [facility] [id number] [place] [address] 18813- 0369 Jan, Left leg pain M79.605 [facility] [id number] [place] [address] 17743 2549 Dec, Left leg pain M79.605 [facility] [id number] [place] [address] 05492- 8626 Dec, [facility] [address] [place] [address] 63147- 5196 Dec, Post-traumatic stress disorder, unspecified F43.10 ; Major depressive disorder, recurrent, moderate F33.1 and Problems related to release from fdc Z65.2 [facility] [id number] [place] [address] 38916- 6861 31 Nov, 2016 Chronic pain G89.29 and Anxiety F41.9 [facility] [id number] [place] [address] 96558- 0278 24 Nov, 2016 Chronic pain G89.29 and Anxiety F41.9 [address] [address] 884303- 9950 16 Nov, 2016 Post-traumatic stress disorder, unspecified F43.10 ; Major depressive disorder, recurrent, moderate F33.1 and Problems related to release from fdc Z65.2 [place] [id number] [place] [address] 72313- 9968 09 Nov, 2016 Other abnormal findings in specimens from other organs, systems and tissues R89.8 ; Other male erectile dysfunction N52.8 ; Body mass index (BMI) of 40.0-44.9 in adult Z68.41 and Morbid (severe) obesity due to excess calories E66.01 [place] [id number] [place] [address] 67065- 2920 02 Nov, 2016 Post-traumatic stress disorder, unspecified F43.10 ; Major depressive disorder, recurrent, moderate F33.1 and Problems related to release from fdc Z65.2 [facility] [id number] [place] [address] [id number] Oct, Dental examination Z01.20 [facility] [id number] [place] [address] 15863- 1455 Oct, [address] [address] 44537- 8315 Oct, Encounter for immunization Z23 [facility] [id number] [place] [address] 99250- 1087 26 Oct, 2016 Chronic pain G89.29 ; Anxiety F41.9 ; Arrhythmia as indication for cardiac pacemaker replacement I49.9 and Glaucoma H40.9 [address] [place] [address] [address]- 3701 Oct, Anxiety F41.9 ; Post-traumatic stress disorder, chronic F43.12 and Problems related to release from fdc Z65.2 [address] [address] [place] [address] 62122- 8414 07 Oct, 2016 Post-traumatic stress disorder, unspecified F43.10 ; Major depressive disorder, recurrent, moderate F33.1 and Problems related to release from fdc Z65.2 [address] [place] [address] 94239- 6496 Sep, Chronic pain G89.29 and Anxiety F41.9 [place] [id number] [place] [address] 63922- 5128 Sep, Post-traumatic stress disorder, unspecified F43.10 ; Major depressive disorder, recurrent, moderate F33.1 and Problems related to release from fdc Z65.2 [address] [id number] [place] [address] 81960- 3382 Sep, Post-traumatic stress disorder, unspecified F43.10 ; Major depressive disorder, recurrent, moderate F33.1 and Problems related to release from fdc Z65.2 [address] [place] [place] [address] 22215- 0469 Sep, Chronic pain G89.29 [address] [address] [place] [address] 49921- 3597 Aug, Dental caries, unspecified K02.9 [address] [place] [address] [place] [address] 45911- 8245 Aug, Sleep apnea, obstructive G47.33 ; Obesity [...] [facility] [address] [place] [address] 42438- 3815 Aug, Post-traumatic stress disorder, unspecified F43.10 ; Major depressive disorder, recurrent, moderate F33.1 and Problems related to release from fdc Z65.2 [facility] [id number] [place] [address] 82117- 4824 Aug, Dental examination Z01.20 [facility] [id number] [place] [address] [id number] 13 Aug, 2016 Dental examination Z01.20 [facility] [id number] [place] [address] 43730- 1300 06 Aug, 2016 Post-traumatic stress disorder, unspecified F43.10 ; Major depressive disorder, recurrent, moderate F33.1 and Problems related to release from fdc Z65.2 [address] [id number] [place] [address] 46449- 9410 05 Aug, 2016 Chronic pain G89.29 and Primary insomnia F51.01 [address] [id number] [place] [address] 41807- 9640 Jul, [address] [id number] [place] [address] 23391- 4579 Jul, [address] [id number] [place] [address] 49794- 6802 Jul, Nausea R11.0 [place] [id number] [place] [address] 37002- 8163 Jul, Arrhythmia as indication for cardiac pacemaker replacement I49.9 [address] [id number] [place] [address] 57794- 0388 Jul, Post-traumatic stress disorder, unspecified F43.10 ; Major depressive disorder, recurrent, moderate F33.1 and Problems related to release from fdc Z65.2 [address] [id number] [place] [address] 32242- 0461 Jul, Anxiety F41.9 [facility] [id number] [place] [address] 52714- 1382 08 Jul, 2016 Chronic pain G89.29 [facility] [id number] [place] [address] 65704- 0468 Jul, Sleep apnea, obstructive G47.33 ; Hyperlipidemia E78.5 ; Chronic pain G89.29 ; Blindness and low vision H54.10 ; Major depressive disorder, recurrent, moderate F33.1 ; Anxiety F41.9 ; Mitral valve prolapse I34.1 ; Arrhythmia as indication for cardiac pacemaker replacement I49.9 ; Primary insomnia F51.01 ; Bilateral headaches R51 and Environmental allergies Z91.09 [address] [id number] [place] [address] 18374- 2752 Jul, Post-traumatic stress disorder, unspecified F43.10 ; Major depressive disorder, recurrent, moderate F33.1 and Problems related to release from fdc Z65.2 [address] [id number] [place] [address] 32219- 2531 June, Post-traumatic stress disorder, chronic F43.12 ; Anxiety F41.9 ; Problems related to release from fdc Z65.2 ; Sleep apnea, obstructive G47.33 and Primary insomnia F51.01 [address] [id number] [place] [address] 37681- 0580 June, [id number] [place] [address] 65543- 1595 June, [address] [id number] [place] [address] 61694- 5922 June, [place] [address] 86240- 1016 June, Chronic pain G89.29 [place] [id number] [place] [address] 67912- 7835 June, Chronic pain G89.29 [place] [address] [place] [address]- 0746 June, Lipoma of left lower extremity D17.24 ; Open wound T14.8 and Swelling of left lower extremity M79.89 [place] [id number] [place] [address] 41419- 6128 June, Post-traumatic stress disorder, unspecified F43.10 ; Major depressive disorder, recurrent, moderate F33.1 and Problems related to release from fdc Z65.2 [place] [address] 21692- 7446 May, Lipoma of left lower extremity D17.24 ; Major depressive disorder, recurrent, moderate F33.1 ; Sleep apnea, obstructive G47.33 ; Hyperlipidemia E78.5 ; Obesity E66.9 ; HTN (hypertension) I10 ; Glaucoma H40.9 ; CAD (coronary artery disease) I25.10 ; Chronic tension headaches G44.229 ; Chronic pain G89.29 ; Anxiety F41.9 ; Nausea R11.0 and Primary insomnia F51.01 [place] [address] 61749- 9540 May, [address] 89074- 3007 May, Chronic pain G89.[address] 39608- 1196 May, [place] [address] 47129- 5490 Apr, Post-traumatic stress disorder, unspecified F43.10 ; Major depressive disorder, recurrent, moderate F33.1 and Problems related to release from fdc Z65.2 [address] 68184- 7421 Apr, Primary insomnia F51.01 ; Post-traumatic stress disorder, chronic F43.12 and Problems related to release from fdc Z65.[address] 53650- 7310 Apr, Post-traumatic stress disorder, unspecified F43.10 ; Major depressive disorder, recurrent, moderate F33.1 and Problems related to release from fdc Z65.2 [address] [id number] [place] [address] 88940- 8519 16 Apr, 2016 [address] [id number] [place] [address] 90492- 6409 16 Apr, 2016 Sleep apnea, obstructive G47.33 ; Chronic pain G89.29 ; HTN (hypertension) I10 ; Mitral valve prolapse I34.1 ; Shoulder pain, left M25.512 ; Arrhythmia as indication for cardiac pacemaker replacement I49.9 ; Glaucoma H40.9 ; Bilateral headaches R51 ; Environmental allergies Z91.09 ; Primary insomnia F51.01 and Nausea R11.0 [place] [id number] [place] [address] 32527- 1336 15 Apr, 2016 [address] 45925- 6309 Apr, [address] [id number] [place] [address] 32806- 0725 Apr, Post-traumatic stress disorder, unspecified F43.10 ; Major depressive disorder, recurrent, moderate F33.1 and Problems related to release from fdc Z65.2 [place] [id number] [place] [address] 55910- 0036 Apr, HTN (hypertension) I10 [place] [id number] [place] [address] 09467- 3574 Apr, HTN (hypertension) I10 [place] [id number] [place] [address] 44711- 4445 14 Mar, 2016 Chronic pain G89.29 ; Primary insomnia F51.01 and Problems related to release from fdc Z65.2 [place] [id number] [place] [address] 54392- 9178 07 Mar, 2016 Post-traumatic stress disorder, unspecified F43.10 ; Major depressive disorder, recurrent, moderate F33.1 and Problems related to release from fdc Z65.2 [facility] [address] [place] [address] 72736- 6073 Feb, Post-traumatic stress disorder, unspecified F43.10 ; Major depressive disorder, recurrent, moderate F33.1 and Problems related to release from fdc Z65.2 [place] [id number] [place] [address] 72321- 8744 Feb, Chronic tension headaches G44.229 [place] [id number] [place] [address] 12312- 5151 Feb, Sleep apnea, obstructive G47.33 ; Obesity [...] pacemaker replacement I49.9 and Primary insomnia F51.01 [place] [id number] [place] [address] 41223- 6795 Feb, Post-traumatic stress disorder, unspecified F43.10 and Chronic pain G89.29 [address] [address]- 1559 Feb, [facility] [id number] [place] [address] [id number] Feb, Dental caries K02.9 [place] [address] [address]- 2538 Feb, [id number] [place] [address] 44463- 1961 Feb, Post-traumatic stress disorder, unspecified F43.10 ; Major depressive disorder, recurrent, moderate F33.1 and Problems related to release from fdc Z65.2 [place] [address] [address]- 9584 Jan, Sleep apnea, obstructive G47.33 and Chronic pain G89.29 [place] [id number] [address]- 6073 Jan, [place] [id number] [place] [address] 76944- 9043 14 Jan, 2016 Dental examination Z01.20 [place] [id number] [place] [address] 16911- 4824 09 Jan, 2016 [place] [id number] [place] [address] 02419- 8735 Jan, [place] [id number] [place] [address] 29665- 4123 29 Dec, 2015 Post-traumatic stress disorder, unspecified F43.10 ; Major depressive disorder, recurrent, moderate F33.1 and Problems related to release from fdc Z65.2 [place] [id number] [place] [address] 39353- 8295 29 Dec, 2015 Encounter for immunization Z23 ; Problems related to release from fdc Z65.2 ; Sleep apnea, obstructive G47.33 and Post-traumatic stress disorder, chronic F43.12 [address] [place] [address] 62826- 8320 18 Dec, 2015 Sleep apnea, obstructive G47.33 ; Hyperlipidemia E78.5 ; Chronic pain G89.29 ; Glaucoma H40.9 ; HTN (hypertension) I10 ; Post-traumatic stress disorder, unspecified F43.10 ; Anxiety F41.9 ; Chronic tension headaches G44.229 ; Mitral valve prolapse I34.1 and CAD (coronary artery disease) I25.10 [place] [address] [place] [address] 01823- 8497 15 Dec, 2015 Post-traumatic stress disorder, unspecified F43.10 ; Major depressive disorder, recurrent, moderate F33.1 and Problems related to release from fdc Z65.2 [address] [address]- 2559 Nov, Chronic pain G89.29 [place] [id number] [place] [address] 87983- 3429 Nov, Post-traumatic stress disorder, unspecified F43.10 ; Major depressive disorder, recurrent, moderate F33.1 and Problems related to release from fdc Z65.2 [place] [id number] [place] [address] 18322- 4235 Oct, [place] [id number] [place] [address] 47754- 4676 Oct, [place] [id number] [place] [address] 47638- 1509 Oct, Post-traumatic stress disorder, unspecified F43.10 ; Major depressive disorder, recurrent, moderate F33.1 and Problems related to release from fdc Z65.2 [place] [id number] [place] [address] 99991- 9317 08 Oct, 2015 [place] [id number] [place] [address] 79222- 9759 07 Oct, 2015 Environmental allergies Z91.09 ; Cough R05 and Open-angle glaucoma of both eyes H40.10X0 [place] [address] [place] [address] 81345- 1325 Sep, [place] [id number] [place] [address] 05384- 0989 Sep, Post-traumatic stress disorder, unspecified F43.10 ; Major depressive disorder, recurrent, moderate F33.1 and Problems related to release from fdc Z65.2 [place] [id number] [place] [address] 02659- 1061 16 Sep, 2015 Chronic pain G89.29 [place] [address] [place] [address] 69463- 8704 Sep, Pain in left shoulder M25.512 ; Pain in right shoulder M25.511 and Other chronic pain G89.29 [facility] [address] [address]- 5691 Sep, [facility] [id number] [place] [address] 27764861- 6586 Sep, [facility] [address] [address]- 0999 Sep, [facility] [id number] [place] [id number] Aug, Dental examination Z01.20 [facility] [id number] [place] [id number] Aug, Post-traumatic stress disorder, unspecified F43.10 ; Open- angle glaucoma of both eyes H40.10X0 and Problems related to release from fdc Z65.2 [facility] [id number] [place] [phone] Aug, [facility] [address] [id number] [place] [address]49- 4156 Aug, Sleep apnea, obstructive G47.33 ; Obesity E66.9 ; Hyperlipidemia E78.5 ; Bilateral headaches R51 ; HTN (hypertension) I10 ; Post- traumatic stress disorder, unspecified F43.10 ; Anxiety F41.9 ; Neuropathy G62.9 ; Glaucoma H40.9 and Chronic pain G89.29 [facility] [id number] [id number] Aug, Encounter for dental examination Z01.20 [facility] [address] [address] Aug, Post-traumatic stress disorder, unspecified F43.10 ; Major depressive disorder, recurrent, moderate F33.1 and Problems related to release from fdc Z65.2 [facility] [address] [address] Aug, [facility] [id number] [place] [address] 72216- 1727 Jul, [facility] [address] [address] Jul, Post-traumatic stress disorder, unspecified F43.10 and Major depressive disorder, recurrent, moderate F33.1 [facility] [address] [address] Jul, [facility] [id number] [place] [address] 41660- 0208 Jul, [facility] [id number] [place] [address] 22556- 8442 Jul, Chronic pain G89.29 [facility] [id number] [place] [address] 65996- 6046 June, Post-traumatic stress disorder, unspecified F43.10 and Major depressive disorder, recurrent, moderate F33.1 [facility] [address] [address] June, [facility] [address] [address] June, Chronic pain G89.29 [facility] [id number] [place] [address] 86609- 7529 June, Post-traumatic stress disorder, unspecified F43.10 and Major depressive disorder, recurrent, moderate F33.1 [facility] [address] [address] May, Post-traumatic stress disorder, unspecified F43.10 and Major depressive disorder, recurrent, moderate F33.1 [facility] [address] [address] May, [facility] [address] [address] 2361 May, [facility] [address] [address] May, [id number] [place] [address] 33827- 4866 Apr, [facility] [id number] [place] [address] 62834- 5669 Apr, Post-traumatic stress disorder, unspecified F43.10 and Sleep apnea, obstructive G47.33 [facility] [id number] [place] [address] 72698- 3511 Apr, [facility] [id number] [place] [address] 72470- 3044 Apr, Shoulder pain, left M25.512 [facility] [id number] [place] [address] 23853- 3954 Apr, Post-traumatic stress disorder, unspecified F43.10 and Major depressive disorder, recurrent, moderate F33.1 [facility] [id number] [place] [address] 21065- 8823 Apr, [facility] [id number] [place] [address] 71122- 2465 Apr, [facility] [id number] [place] [address] 88929- 3999 08 Apr, 2015 [facility] [id number] [place] [address] 49088- 1906 Apr, Left shoulder pain M25.512 [facility] [id number] [place] [address] 47780- 9257 Mar, [facility] [id number] [place] [address] 07724- 3309 Mar, [facility] [id number] [place] [address] 69313- 6695 Mar, [facility] [id number] [place] [address] 21189- 7013 12 Mar, 2015 Sleep apnea, obstructive G47.33 ; Obesity E66.9 ; Chronic pain G89.29 ; Hyperlipidemia E78.5 ; HTN (hypertension) I10 ; Blindness and low vision H54.10 ; Major depressive disorder, recurrent, moderate F33.1 and Anxiety F41.9 [address] [id number] [place] [address] 13950- 5540 Mar, [address] [place] [address] 14261- 8437 Mar, Post-traumatic stress disorder, unspecified F43.10 and Major depressive disorder, recurrent, moderate F33.1 [place] [address] 31139- 2583 Mar, [address] [place] [address] 32351- 7158 04 Mar, 2015 HTN (hypertension) I10 ; Blindness and low vision H54.10 ; Obesity E66.9 ; Hyperlipidemia E78.5 ; Glaucoma H40.9 ; Chronic pain G89.29 and CAD (coronary artery disease) I25.10 [place] [id number] [place] [address] 35808- 9905 Feb, [address] 94404- 5833 Feb, Post-traumatic stress disorder, unspecified F43.10 ; Obesity E66.9 ; Sleep apnea, obstructive G47.33 and Open-angle glaucoma of both eyes H40.10X0 [place] [id number] [place] [address] 31024- 1797 Feb, Post-traumatic stress disorder, unspecified F43.10 and Major depressive disorder, recurrent, moderate F33.1 [place] [address] 16741- 0259 Feb, [place] [id number] [place] [address] 35337- 2418 Feb, [address] [address] 51478- 3624 Feb, HTN (hypertension) I10 ; Post-traumatic stress disorder, unspecified F43.10 ; Blindness and low vision H54.10 ; Obesity E66.9 ; Hyperlipidemia E78.5 ; Chronic pain G89.29 ; Glaucoma H40.9 ; Mitral valve prolapse I34.1 and Bilateral headaches R51 [place] [id number] [place] [address] 33616- 6740 Feb, [place] [address] 63568- 4944 Feb, Post-traumatic stress disorder, unspecified F43.10 and Major depressive disorder, recurrent, moderate F33.[address] [address]55- 4868 Feb, [place] [address] 11582- 4046 Feb, [address] [address] 73348- 6548 Jan, [place] [id number] [place] [address] 57935- 5590 Jan, [place] [id number] [place] [address] 66652- 1064 Jan, Obesity E66.9 ; HTN (hypertension) I10 ; Blindness and low vision H54.10 ; Major depressive disorder, recurrent, moderate F33.1 ; Glaucoma H40.9 ; Hyperlipidemia E78.5 ; Sleep apnea, obstructive G47.33 ; Chronic pain G89.29 ; Anxiety F41.9 ; Chronic tension headaches G44.229 and Cough R05 [place] [id number] [place] [address] 81136- 0522 Jan, [place] [id number] [place] [address] 16673- 4881 Jan, [place] [id number] [place] [address] 25135- 9174 Jan, Post-traumatic stress disorder, unspecified F43.10 ; Obesity E66.9 ; Sleep apnea, obstructive G47.33 and Open-angle glaucoma of both eyes H40.10X0 [address]- 3367 Jan, [place] [address]- 7777 Jan, Post-traumatic stress disorder, unspecified F43.10 and Major depressive disorder, recurrent, moderate F33.1 [address] [address] [address] 60876- 8439 Dec, [address]- 5906 Dec, Sleep apnea, obstructive G47.33 ; Obesity E66.9 ; Hyperlipidemia E78.5 ; Glaucoma H40.9 ; Chronic pain G89.29 ; HTN (hypertension ) I10 ; Blindness and low vision H54.10 ; Anxiety F41.9 and CAD (coronary artery disease) I25.10 [place] [address] 25203- 4699 Nov, [address] 27458- 5731 Nov, [place] [address] 73021- 7051 Nov, [place] [address] 80175- 2547 Nov, [place] [address] 60302- 3880 Nov, [address]- 2870 Nov, Encounter for immunization Z23 ; Sleep apnea, obstructive G47.33 ; Obesity E66.9 ; Hyperlipidemia E78.5 ; Glaucoma H40.9 ; Chronic pain G89.29 ; Anxiety F41.9 ; Chronic tension headaches G44.229 and HTN (hypertension ) I10 [facility] [address] [address]- 1422 19 Nov, 2014 [facility] [id number] [place] [address] 14793- 3530 14 Nov, 2014 [facility] [id number] [address]- 2081 Nov, Dizziness R42 [facility] [id number] [place] [address] 17283- 2013 Nov, [facility] [id number] [place] [address] 01867- 3034 Oct, [facility] [id number] [place] [address] 97634- 6955 Oct, [facility] [id number] [place] [address] 42825- 5990 Oct, [facility] [id number] [place] [address] 82874- 8896 Oct, [facility] [id number] [place] [address] 95988- 9557 Oct, Dizziness 780.4 ; Essential hypertension 401.9 ; Obesity 278.00 ; Hyperlipidemia 272.4 ; Chronic pain 338.29 ; Glaucoma 365.9 and Anxiety 300.00 [facility] [address] [address]- 3046 Oct, Essential hypertension 401.9 ; Hyperlipidemia 272.4 ; Glaucoma 365.9 ; Obesity 278.00 ; Chronic pain 338.29 and Allergy to insects V15.06 [facility] [address] [address]- 3682 Sep, [facility] [id number] [place] [address] 47930- 9452 Sep, [facility] [address] [address]- 4853 Sep, [facility] [id number] [address]- 5038 Sep, [facility] [address] [facility] [id number] [address]- 4084 Aug, Essential hypertension 401.9 ; Obesity 278.00 ; Hyperlipidemia 272.4 ; Glaucoma 365.9 ; Lipoma 214.9 ; Mitral valve prolapse 424.0 ; Angina at rest 413.9 ; Lymphedema 457.1 and Chronic pain 338.29 IMMUNIZATIONS No Known Immunizations SOCIAL HISTORY Never Assessed REASON FOR VISIT Hydrocodone 12/31 PLAN OF CARE VITAL SIGNS MEDICATIONS Unknown [...]
--- OUTSIDE RECORDS SUMMARY | 2018-02-04 15:14 | XMS REPORT ---
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 Name Role Phone CJ EDGE Unavailable PROBLEMS Type Condition ICD9-CM Code [id number] Code Onset Dates Condition Status SNOMED Code Problem Arrhythmia as indication for cardiac pacemaker replacement I49.9 Active 32246236 Problem Body mass index (BMI) of 40.0-44.9 in adult Z68.41 Active 844893596 Problem Primary insomnia F51.01 Active 4061983 Problem Sarcoidosis D86.9 Active 47049058 Problem Chronic pain G89.29 Active 59389012 Problem Chronic pain syndrome G89.4 Active 866597267 Problem Sleep apnea, obstructive G47.33 Active 63288198 Problem Hyperlipidemia E78.5 Active 28112656 Problem Other male erectile dysfunction N52.8 Active 301687115 Problem Morbid (severe) obesity due to excess calories E66.01 Active 439909855 Problem Migraine without aura and without status migrainosus, not intractable G43.009 Active 744470173 Problem 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 Active 012940749 Problem Chronic tension headaches G44.229 Active 417540878 Problem Anxiety F41.9 Active 71853203 Problem HTN (hypertension) I10 Active 94289584 Problem Blindness and low vision H54.10 Active 913037598 Problem Mitral valve prolapse I34.1 Active 296605489 Problem CAD (coronary artery disease) I25.10 Active 49293727 Problem Major depressive disorder, recurrent, moderate F33.1 Active 35366699 Problem Post-traumatic stress disorder, chronic F43.12 Active 372055529 Problem Myocarditis, unspecified chronicity, 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 Active 79357137 Problem Open-angle glaucoma of both eyes H40.10X0 Active 95577225 Problem Environmental allergies Z91.09 Active 251331446 ALLERGIES No Information ENCOUNTERS Encounter Location Date Diagnosis [facility] [address] [address] Jul, [facility] [address] [address] Jul, [facility] [address] [address] June, [facility] [address] [address] June, [facility] [id number] [place] [address] 04523- 1858 June, [facility] [id number] [place] [address] 32404- 9021 June, Left leg pain M79.605 [facility] [id number] [address] June, Sarcoidosis D86.9 [facility] [id number] [place] [address] 19634- 7630 June, [facility] [address] [address] June, [facility] [address] [address] June, Left leg pain M79.605 [facility] [address] [address] May, [facility] [address] [address] May, [facility] [address] [address] May, [facility] [address] [address] May, Left leg pain M79.605 [facility] [address] [address] May, Post-traumatic stress disorder, unspecified F43.10 ; Major depressive disorder, recurrent, moderate F33.1 and Problems [facility] Z65.2 [facility] [id number] [place] [address] 04356- 1406 04 May, 2017 Chronic pain G89.29 ; Anxiety F41.9 and Chest pain, unspecified type R07.9 [facility] [id number] [place] [address] 09894- 3763 30 Apr, 2017 [facility] [id number] [place] [address] 32919- 2828 29 Apr, 2017 Left leg pain M79.605 [facility] [id number] [place] [address] 82465- 8585 27 Apr, 2017 Post-traumatic stress disorder, unspecified F43.10 ; Problems related to [facility] Z65.2 ; Anxiety F41.9 and BMI 40.0-44.9 , adult Z68.41 [facility] [id number] [place] [address] 08500- 5126 Apr, [facility] [id number] [place] [address] 86618- 3156 19 Apr, 2017 Left leg pain M79.605 [facility] [id number] [place] [address] 27214- 9001 13 Apr, 2017 Post-traumatic stress disorder, unspecified F43.10 ; Major depressive disorder, recurrent, moderate F33.1 and Problems related to [facility] Z65.2 [facility] [id number] [place] [address] 48521- 3844 Apr, [facility] [address] 24659- 1796 12 Apr, 2017 Chronic pain G89.29 ; 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 ; Morbid (severe) obesity due to excess calories E66.01 ; Anxiety F41.9 and BMI 40.0-44.9, adult Z68.41 [facility] [id number] [place] [address] 06988 -9776 Apr, Sore throat J02.9 and BMI 40.0-44.9, adult Z68.41 [facility] [facility] [address] 61742- 0170 02 Apr, 2017 Left leg pain M79.605 [facility] [address] [id number] Mar, Dental examination Z01.20 [facility] [address] 90873- 8307 Mar, [facility] [address] [address] Mar, Cough R05 ; Viral gastroenteritis A08.4 and BMI 40.0-44.9, adult Z68.41 [facility] [address] 26044- 1353 Mar, Left leg pain M79.605 [facility] [address] 17393- 1465 06 Mar, 2017 Post-traumatic stress disorder, unspecified F43.10 ; Major depressive disorder, recurrent, moderate F33.1 and Problems related to [facility] Z65.2 [facility] [facility] [address] 06765- 6184 Feb, Left leg pain M79.605 [facility] [address] 50056- 2882 Feb, [facility] [address] 01746- 8965 Feb, BMI 40.0-44.9, adult Z68.41 ; Chronic pain syndrome G89.4 ; Migraine without aura and without status migrainosus, not intractable G43.009 ; Mitral valve prolapse I34.1 and 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 [facility] [address] 59908- 4755 Feb, Post-traumatic stress disorder, chronic F43.12 ; Anxiety F41.9 ; Problems related to [facility] Z65.2 and BMI 40.0-44.9, adult Z68.41 [facility] [id number] [place] [address] 04966- 4878 Feb, Post-traumatic stress disorder, unspecified F43.10 ; Major depressive disorder, recurrent, moderate F33.1 and Problems related to [facility] Z65.2 [facility] [id number] [place] [address] 04293- 8397 Feb, Left leg pain M79.605 [facility] [id number] [place] [address] 19097- 7075 Jan, Post-traumatic stress disorder, unspecified F43.10 ; Major depressive disorder, recurrent, moderate F33.1 and Problems related to [facility] Z65.2 [facility] [id number] [place] [address] 32084- 1843 Jan, [facility] [id number] [place] [address] 84015- 6964 Jan, [facility] [id number] [place] [address] 10095- 6037 Jan, Anxiety F41.9 [facility] [id number] [place] [address] 85281- 0700 Jan, Left leg pain M79.605 [facility] [id number] [place] [address] 13047- 4557 Dec, Left leg pain M79.605 [facility] [id number] [place] [address] 600742- 3785 Dec, [facility] [id number] [place] [address] 71001- 0879 Dec, Post-traumatic stress disorder, unspecified F43.10 ; Major depressive disorder, recurrent, moderate F33.1 and Problems related to [facility] Z65.2 [facility] [address] [place] [address] 93791- 9127 31 Nov, 2016 Chronic pain G89.29 and Anxiety F41.9 [facility] [id number] [place] [address] 24 Nov, 2016 Chronic pain G89.29 and Anxiety F41.9 [facility] [address] 06850- 6458 16 Nov, 2016 Post-traumatic stress disorder, unspecified F43.10 ; Major depressive disorder, recurrent, moderate F33.1 and Problems related to [facility] Z65.2 [facility] [id number] [place] [address] 78353- 7808 09 Nov, 2016 Other abnormal findings in specimens from other organs, systems and tissues R89.8 ; Other male erectile dysfunction N52.8 ; Body mass index (BMI) of 40.0-44.9 in adult Z68.41 and Morbid (severe) obesity due to excess calories E66.01 [facility] [id number] [place] [address] 27955- 4032 02 Nov, 2016 Post-traumatic stress disorder, unspecified F43.10 ; Major depressive disorder, recurrent, moderate F33.1 and Problems related to [facility] Z65.2 [facility] [id number] [place] [address] [id number] 29 Oct, 2016 Dental examination Z01.20 [facility] [id number] [place] [address] 63607- 8693 Oct, [facility] [id number] [place] [address] 91262- 7000 Oct, Encounter for immunization Z23 [place] [id number] [place] [address] 86282- 4304 26 Oct, 2016 Chronic pain G89.29 ; Anxiety F41.9 ; Arrhythmia as indication for cardiac pacemaker replacement I49.9 and Glaucoma H40.9 [facility] [address] [place] [address]- 8539 Oct, Anxiety F41.9 ; Post-traumatic stress disorder, chronic F43.12 and Problems related to [facility] Z65.2 [facility] [id number] [place] [address] 66546- 9838 07 Oct, 2016 Post-traumatic stress disorder, unspecified F43.10 ; Major depressive disorder, recurrent, moderate F33.1 and Problems related to [facility] Z65.2 [facility] [id number] [place] [address] 26989- 4231 Sep, Chronic pain G89.29 and Anxiety F41.9 [facility] [address] 29886- 1961 Sep, Post-traumatic stress disorder, unspecified F43.10 ; Major depressive disorder, recurrent, moderate F33.1 and Problems related to [facility] Z65.2 [facility] [id number] [place] [address] 36901- 0519 Sep, Post-traumatic stress disorder, unspecified F43.10 ; Major depressive disorder, recurrent, moderate F33.1 and Problems related to [facility] Z65.2 [facility] [id number] [place] [address] 00922- 0438 Sep, Chronic pain G89.29 [facility] [id number] [place] [address] 79879- 1130 Aug, Dental caries, unspecified K02.9 [facility] [id number] [place] [address] 95989- 5722 Aug, Sleep apnea, obstructive G47.33 ; Obesity E66.9 ; Chronic pain G89.29 ; HTN (hypertension) I10 ; Major depressive disorder, recurrent, moderate F33.1 ; Anxiety F41.9 ; Chronic tension headaches G44.229 ; Mitral valve prolapse I34.1 ; Arrhythmia as indication for cardiac pacemaker replacement I49.9 ; Dental caries, unspecified K02.9 ; Primary insomnia F51.01 and Hyperlipidemia E78.5 [facility] [address] [place] [address] 46309- 2556 Aug, Post-traumatic stress disorder, unspecified F43.10 ; Major depressive disorder, recurrent, moderate F33.1 and Problems related to release [facility] Z65.2 [facility] [address] [place] [address] 00587- 2964 Aug, Dental examination Z01.20 [facility] [address] [place] [address] [id number] Aug, Dental examination Z01.20 [facility] [id number] [place] [address] 67865- 7054 06 Aug, 2016 Post-traumatic stress disorder, unspecified F43.10 ; Major depressive disorder, recurrent, moderate F33.1 and Problems related to release [facility] Z65.2 [facility] [id number] [place] [address] 75781- 9822 Aug, Chronic pain G89.29 and Primary insomnia F51.01 [facility] [id number] [place] [address] 72101- 0944 Jul, [facility] [id number] [place] [address] 09065- 8005 Jul, [facility] [id number] [place] [address] 21259- 7672 Jul, Nausea R11.0 [facility] [id number] [place] [address] 70457- 6088 Jul, Arrhythmia as indication for cardiac pacemaker replacement I49.9 [facility] [id number] [place] [address] 60804- 7748 Jul, Post-traumatic stress disorder, unspecified F43.10 ; Major depressive disorder, recurrent, moderate F33.1 and Problems related to release [facility] Z65.2 [facility] [id number] [place] [address] 99199- 0684 Jul, Anxiety F41.9 [facility] [id number] [place] [address] 26419- 9578 Jul, Chronic pain G89.29 [facility] [id number] [place] [address] 57505- 0512 Jul, Sleep apnea, obstructive G47.33 ; Hyperlipidemia E78.5 ; Chronic pain G89.29 ; Blindness and low vision H54.10 ; Major depressive disorder, recurrent, moderate F33.1 ; Anxiety F41.9 ; Mitral valve prolapse I34.1 ; Arrhythmia as indication for cardiac pacemaker replacement I49.9 ; Primary insomnia F51.01 ; Bilateral headaches R51 and Environmental allergies Z91.09 [place] [id number] [place] [address] 78950- 0558 Jul, Post-traumatic stress disorder, unspecified F43.10 ; Major depressive disorder, recurrent, moderate F33.1 and Problems related to release [facility] Z65.2 [place] [id number] [place] [address] 39355- 9650 June, Post-traumatic stress disorder, chronic F43.12 ; Anxiety F41.9 ; Problems related to release [facility] Z65.2 ; Sleep apnea, obstructive G47.33 and Primary insomnia F51.01 [facility] [id number] [place] [address] 07193- 6984 June, [place] [id number] [place] [address] 22338- 5504 June, [facility] [id number] [place] [address] 22958- 6262 June, [facility] [id number] [place] [address] 49506- 3728 June, Chronic pain G89.29 [facility] [id number] [place] [address] 83873- 9992 June, Chronic pain G89.29 [facility] [id number] [place] [address] 42938- 1916 June, Lipoma of left lower extremity D17.24 ; Open wound T14.8 and Swelling of left lower extremity M79.89 [facility] [address] 84818- 1805 June, Post-traumatic stress disorder, unspecified F43.10 ; Major depressive disorder, recurrent, moderate F33.1 and Problems related to [facility] Z65.2 [facility] [address] 50526- 8483 May, Lipoma of left lower extremity D17.24 ; Major depressive disorder, recurrent, moderate F33.1 ; Sleep apnea, obstructive G47.33 ; Hyperlipidemia E78.5 ; Obesity E66.9 ; HTN (hypertension) I10 ; Glaucoma H40.9 ; CAD (coronary artery disease) I25.10 ; Chronic tension headaches G44.229 ; Chronic pain G89.29 ; Anxiety F41.9 ; Nausea R11.0 and Primary insomnia F51.01 [facility] [address] 63246- 8890 May, [facility] [address] 33349- 3630 May, Chronic pain G89.29 [facility] [address] 66863- 1196 May, [facility] [id number] [place] [address] 24770- 7086 Apr, Post-traumatic stress disorder, unspecified F43.10 ; Major depressive disorder, recurrent, moderate F33.1 and Problems related to release [facility] Z65.2 [facility] [id number] [place] [address] 52301- 1953 Apr, Primary insomnia F51.01 ; Post-traumatic stress disorder, chronic F43.12 and Problems related to release [facility] Z65.[address] 00529- 6004 Apr, Post-traumatic stress disorder, unspecified F43.10 ; Major depressive disorder, recurrent, moderate F33.1 and Problems related to release [facility] Z65.2 [facility] [id number] [place] [address] 07080- 0701 16 Apr, 2016 [facility] [id number] [place] [address] 44756- 7966 16 Apr, 2016 Sleep apnea, obstructive G47.33 ; Chronic pain G89.29 ; HTN (hypertension) I10 ; Mitral valve prolapse I34.1 ; Shoulder pain, left M25.512 ; Arrhythmia as indication for cardiac pacemaker replacement I49.9 ; Glaucoma H40.9 ; Bilateral headaches R51 ; Environmental allergies Z91.09 ; Primary insomnia F51.01 and Nausea R11.0 [facility] [id number] [place] [address] 22385- 6026 15 Apr, 2016 [facility] [id number] [place] [address] 75029- 8692 Apr, [facility] [id number] [place] [address] 56893- 7381 Apr, Post-traumatic stress disorder, unspecified F43.10 ; Major depressive disorder, recurrent, moderate F33.1 and Problems related to release [facility] Z65.2 [facility] [address] [place] [address] 23257- 8907 07 Apr, 2016 HTN (hypertension) I10 [facility] [id number] [place] [address] 61404- 6227 07 Apr, 2016 HTN (hypertension) I10 [facility] [id number] [place] [address] 60235- 9211 14 Mar, 2016 Chronic pain G89.29 ; Primary insomnia F51.01 and Problems related to release [facility] Z65.2 [facility] [address] [place] [address] 36191- 0702 07 Mar, 2016 Post-traumatic stress disorder, unspecified F43.10 ; Major depressive disorder, recurrent, moderate F33.1 and Problems related to [facility] Z65.2 [place] [address] [place] [address] 87612- 3589 Feb, Post-traumatic stress disorder, unspecified F43.10 ; Major depressive disorder, recurrent, moderate F33.1 and Problems related to release [facility] Z65.2 [facility] [id number] [place] [address] 31055- 5955 Feb, Chronic tension headaches G44.229 [facility] [id number] [place] [address] 57299- 4696 Feb, Sleep apnea, obstructive G47.33 ; Obesity [...] I49.9 and Primary insomnia F51.01 [facility] [id number] [place] [address] 48096- 6350 Feb, Post-traumatic stress disorder, unspecified F43.10 and Chronic pain G89.29 [place] [id number] [place] [address] 01266- 1048 Feb, [facility] [id number] [place] [address] [id number] Feb, Dental caries K02.9 [facility] [id number] [place] [address] 42284- 4155 Feb, [facility] [facility] [address] 02492- 7125 Feb, Post-traumatic stress disorder, unspecified F43.10 ; Major depressive disorder, recurrent, moderate F33.1 and Problems related to [facility] Z65.2 [facility] [address] 83839- 5582 Jan, Sleep apnea, obstructive G47.33 and Chronic pain G89.29 [facility] [id number] [place] [address] 51003- 5284 Jan, [facility] [id number] [place] [address] 31700- 5715 Jan, Dental examination Z01.20 [place] [address] 95115- 5202 Jan, [place] [id number] [place] [address] 13446- 8226 Jan, [address] 07836- 7499 Dec, Post-traumatic stress disorder, unspecified F43.10 ; Major depressive disorder, recurrent, moderate F33.1 and Problems related to [facility] Z65.[address] 25089- 7536 Dec, Encounter for immunization Z23 ; Problems related to [facility] Z65.2 ; Sleep apnea, obstructive G47.33 and Post-traumatic stress disorder, chronic F43.12 [place] [id number] [place] [address] 77191- 7895 18 Dec, 2015 Sleep apnea, obstructive G47.33 ; Hyperlipidemia E78.5 ; Chronic pain G89.29 ; Glaucoma H40.9 ; HTN (hypertension) I10 ; Post-traumatic stress disorder, unspecified F43.10 ; Anxiety F41.9 ; Chronic tension headaches G44.229 ; Mitral valve prolapse I34.1 and CAD (coronary artery disease) I25.10 [place] [id number] [place] [address] 49896- 8006 15 Dec, 2015 Post-traumatic stress disorder, unspecified F43.10 ; Major depressive disorder, recurrent, moderate F33.1 and Problems related to release [facility] Z65.2 [place] [id number] [place] [address] 50626- 4990 Nov, Chronic pain G89.29 [facility] [address] [address]- 1513 Nov, Post-traumatic stress disorder, unspecified F43.10 ; Major depressive disorder, recurrent, moderate F33.1 and Problems related to release [facility] Z65.2 [facility] [facility] [id number] [address]- 7585 Oct, [facility] [id number] [place] [address] 41801- 6267 Oct, [place] [id number] [place] [address] 31200- 0306 Oct, Post-traumatic stress disorder, unspecified F43.10 ; Major depressive disorder, recurrent, moderate F33.1 and Problems related to [facility] Z65.2 [facility] [id number] [place] [address] 58660- 7262 08 Oct, 2015 [facility] [facility] [id number] [place] [address] 80587- 7674 07 Oct, 2015 Environmental allergies Z91.09 ; Cough R05 and Open-angle glaucoma of both eyes H40.10X0 [place] [address] [address]- 5530 Sep, [place] [address] [place] [address] 82715- 4397 Sep, Post-traumatic stress disorder, unspecified F43.10 ; Major depressive disorder, recurrent, moderate F33.1 and Problems related to [facility] Z65.2 [place] [address] [place] [address] 19124- 8180 Sep, Chronic pain G89.29 [place] [id number] [place] [address] 04575- 4521 Sep, Pain in left shoulder M25.512 ; Pain in right shoulder M25.511 and Other chronic pain G89.29 [place] [address] [address]- 7365 Sep, [facility] [id number] [place] [address] 74674- 4990 Sep, [facility] [id number] [place] [address] 36932298- 8429 Sep, [facility] [id number] [place] [address] [id number] Aug, Dental examination Z01.20 [place] [id number] [place] [address] 77702- 5743 Aug, Post-traumatic stress disorder, unspecified F43.10 ; Open- angle glaucoma of both eyes H40.10X0 and Problems related to [facility] Z65.2 [facility] [id number] [place] [address] 92353- 0861 Aug, [place] [id number] [place] [address] 75420- 1968 Aug, Sleep apnea, obstructive G47.33 ; Obesity E66.9 ; Hyperlipidemia E78.5 ; Bilateral headaches R51 ; HTN (hypertension) I10 ; Post- traumatic stress disorder, unspecified F43.10 ; Anxiety F41.9 ; Neuropathy G62.9 ; Glaucoma H40.9 and Chronic pain G89.29 [facility] [id number] [place] [address] [id number] Aug, Encounter for dental examination Z01.20 [facility] [id number] [place] [address] 06452- 3255 Aug, Post-traumatic stress disorder, unspecified F43.10 ; Major depressive disorder, recurrent, moderate F33.1 and Problems related to [facility] Z65.2 [facility] [id number] [place] [address] 85252- 7070 Aug, [place] [id number] [place] [address] 85777- 0492 Jul, [place] [address] Jul, Post-traumatic stress disorder, unspecified F43.10 and Major depressive disorder, recurrent, moderate F33.1 [facility] [address] [address] Jul, [facility] [address] [address] Jul, [facility] [id number] [place] [address] 00878- 5281 Jul, Chronic pain G89.29 [facility] [id number] [place] [address] 67737- 0995 June, Post-traumatic stress disorder, unspecified F43.10 and Major depressive disorder, recurrent, moderate F33.1 [facility] [id number] [place] [address] 58794- 6850 June, [facility] [address] [address] June, Chronic pain G89.29 [facility] [id number] [place] [address] 10785- 4223 June, Post-traumatic stress disorder, unspecified F43.10 and Major depressive disorder, recurrent, moderate F33.1 [facility] [address] [address] May, Post-traumatic stress disorder, unspecified F43.10 and Major depressive disorder, recurrent, moderate F33.1 [facility] [address] [address] May, [facility] [id number] [place] [address] 48098- 9557 May, [facility] [address] [address] 290[address] May, [facility] [id number] [place] [address] 91367- 0611 31 Apr, 2015 [facility] [id number] [place] [address] 14602- 3565 Apr, Post-traumatic stress disorder, unspecified F43.10 and Sleep apnea, obstructive G47.33 [facility] [id number] [place] [address] 32537- 7504 Apr, [facility] [id number] [place] [address] 81195- 5919 Apr, Shoulder pain, left M25.512 [facility] [id number] [place] [address] 68133- 9897 Apr, Post-traumatic stress disorder, unspecified F43.10 and Major depressive disorder, recurrent, moderate F33.1 [facility] [id number] [place] [address] 32593- 3508 Apr, [facility] [id number] [place] [address] 16047- 4483 Apr, [facility] [id number] [place] [address] 74350- 1108 08 Apr, 2015 [facility] [id number] [place] [address] 57663- 1745 Apr, Left shoulder pain M25.512 [facility] [id number] [place] [address] 86228- 3424 Mar, [facility] [id number] [place] [address] 32248- 1643 Mar, [facility] [id number] [place] [address] 44049- 5381 Mar, [facility] [id number] [place] [address] 28340- 4743 12 Mar, 2015 Sleep apnea, obstructive G47.33 ; Obesity E66.9 ; Chronic pain G89.29 ; Hyperlipidemia E78.5 ; HTN (hypertension) I10 ; Blindness and low vision H54.10 ; Major depressive disorder, recurrent, moderate F33.1 and Anxiety F41.9 [place] [id number] [place] [address] 99936- 3087 Mar, [place] [id number] [place] [address] 57144- 3475 Mar, Post-traumatic stress disorder, unspecified F43.10 and Major depressive disorder, recurrent, moderate F33.1 [place] [id number] [place] [address] 80423- 9836 08 Mar, 2015 [place] [address] 432096- 4813 04 Mar, 2015 HTN (hypertension) I10 ; Blindness and low vision H54.10 ; Obesity E66.9 ; Hyperlipidemia E78.5 ; Glaucoma H40.9 ; Chronic pain G89.29 and CAD (coronary artery disease) I25.10 [place] [id number] [place] [address] 54104- 9952 Feb, [place] [id number] [place] [address] 54932- 8085 Feb, Post-traumatic stress disorder, unspecified F43.10 ; Obesity E66.9 ; Sleep apnea, obstructive G47.33 and Open-angle glaucoma of both eyes H40.10X0 [facility] [facility] [id number] [place] [address] 37612- 6624 Feb, Post-traumatic stress disorder, unspecified F43.10 and Major depressive disorder, recurrent, moderate F33.1 [place] [id number] [place] [address] 64143- 3574 Feb, [address] [id number] [place] [address] 59946- 3981 Feb, [place] [id number] [place] [address] 59235- 4952 Feb, HTN (hypertension) I10 ; Post-traumatic stress disorder, unspecified F43.10 ; Blindness and low vision H54.10 ; Obesity E66.9 ; Hyperlipidemia E78.5 ; Chronic pain G89.29 ; Glaucoma H40.9 ; Mitral valve prolapse I34.1 and Bilateral headaches R51 [place] [id number] [place] [address] 09463- 2766 Feb, [place] [address] 892717- 5719 Feb, Post-traumatic stress disorder, unspecified F43.10 and Major depressive disorder, recurrent, moderate F33.[address] 752939- 6607 Feb, [place] [address] 43349- 7278 Feb, [address] 39121- 8329 Jan, [place] [id number] [place] [address] 48954- 6483 Jan, [address] 20010- 6490 Jan, Obesity E66.9 ; HTN (hypertension) I10 ; Blindness and low vision H54.10 ; Major depressive disorder, recurrent, moderate F33.1 ; Glaucoma H40.9 ; Hyperlipidemia E78.5 ; Sleep apnea, obstructive G47.33 ; Chronic pain G89.29 ; Anxiety F41.9 ; Chronic tension headaches G44.229 and Cough R05 [place] [id number] [place] [address] 22014- 4953 Jan, [address] 72099- 6208 Jan, [address] [id number] [place] [address] 25066- 5407 Jan, Post-traumatic stress disorder, unspecified F43.10 ; Obesity E66.9 ; Sleep apnea, obstructive G47.33 and Open-angle glaucoma of both eyes H40.10X0 [id number] [place] [address]- [address] Jan, [address] [address]- 8979 Jan, Post-traumatic stress disorder, unspecified F43.10 and Major depressive disorder, recurrent, moderate F33.1 [id number]- 4240 Dec, [id number] [place] [address] 8479 Dec, Sleep apnea, obstructive G47.33 ; Obesity E66.9 ; Hyperlipidemia E78.5 ; Glaucoma H40.9 ; Chronic pain G89.29 ; HTN (hypertension ) I10 ; Blindness and low vision H54.10 ; Anxiety F41.9 and CAD (coronary artery disease) I25.10 [place] [id number] [place] [address] 38025- 1932 Nov, [address] 389273- 5243 Nov, [address] [id number] [place] [address] 52821- 1003 Nov, [address] [id number] [place] [address] 47282- 4652 Nov, [address] [id number] [place] [address] 53308- 2396 Nov, [address] 39372- 9608 Nov, Encounter for immunization Z23 ; Sleep apnea, obstructive G47.33 ; Obesity E66.9 ; Hyperlipidemia E78.5 ; Glaucoma H40.9 ; Chronic pain G89.29 ; Anxiety F41.9 ; Chronic tension headaches G44.229 and HTN (hypertension ) I10 [address] [address]- 9527 19 Nov, 2014 [facility] [id number] [place] [address] 33736- 1896 14 Nov, 2014 [facility] [id number] [place] [address] 03492- 3995 06 Nov, 2014 Dizziness R42 [facility] [id number] [place] [address] 83548- 7110 Nov, [facility] [id number] [place] [address] 18768- 1692 29 Oct, 2014 [facility] [id number] [place] [address] 97374- 6182 28 Oct, 2014 [facility] [id number] [place] [address] 21670- 0248 Oct, [facility] [id number] [place] [address] 11493- 7602 Oct, [facility] [id number] [place] [address] 90347- 3536 17 Oct, 2014 Dizziness 780.4 ; Essential hypertension 401.9 ; Obesity 278.00 ; Hyperlipidemia 272.4 ; Chronic pain 338.29 ; Glaucoma 365.9 and Anxiety 300.00 [facility] [address] [place] [address] 89629- 0059 Oct, Essential hypertension 401.9 ; Hyperlipidemia 272.4 ; Glaucoma 365.9 ; Obesity 278.00 ; Chronic pain 338.29 and Allergy to insects V15.06 [facility] [address] [address]- 6310 Sep, [facility] [id number] [place] [address] 94849- 0802 Sep, [facility] [id number] [place] [address] 54906- 0346 Sep, [facility] [id number] [place] [address] 39382- 4986 Sep, [facility] [address] [facility] [id number] [address]- 6[address] Aug, Essential hypertension 401.9 ; Obesity 278.00 [...] Psychotherapy, patient &/family, 30 minutes, established patient Dec 23, 2016 INSTRUCTIONS MEDICATIONS ADMINISTERED No Known [...]
--- OUTSIDE RECORDS SUMMARY | 2018-02-04 15:14 | XMS REPORT ---
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 Name Role Phone EDUIN CARDONA Unavailable PROBLEMS Type Condition ICD9-CM Code [id number] Code Onset Dates Condition Status SNOMED Code Problem CAD (coronary artery disease) I25.10 Active 10032147 Problem Encounter for dental examination Z01.20 Active 954671525 Problem Shoulder pain, left M25.512 Active 19750616 Problem Post-traumatic stress disorder, unspecified F43.10 Active 51408533 Problem Hyperlipidemia E78.5 Active 58788522 Problem Primary insomnia F51.01 Active 5121155 Problem Obesity E66.9 Active 427624177 Problem Chronic pain G89.29 Active 80691273 Problem Post-traumatic stress disorder, chronic F43.12 Active 603374831 Problem Bilateral headaches R51 Active 689185968 Problem Arrhythmia as indication for cardiac pacemaker replacement I49.9 Active 09146700 Problem Environmental allergies Z91.09 Active 911692766 Problem Blindness and low vision H54.10 Active 107932911 Problem HTN (hypertension) I10 Active 08043305 Problem Glaucoma H40.9 Active 67765324 Problem Problems related to release from [facility] Z65.2 Active 98178357 Problem Anxiety F41.9 Active 02221894 Problem Major depressive disorder, recurrent, moderate F33.1 Active 25280142 Problem Chronic tension headaches G44.229 Active 395940629 Problem Open-angle glaucoma of both eyes H40.10X0 Active 26560252 Problem Sleep apnea, obstructive G47.33 Active 78602181 Problem Cough R05 Active 52466978 Problem Mitral valve prolapse I34.1 Active 436215397 ALLERGIES Unknown Allergies SOCIAL HISTORY No smoking Hx information available PLAN OF CARE VITAL SIGNS MEDICATIONS Medication Instructions Dosage Frequency Start Date End Date Duration Status Topamax 100 mg Orally Twice a day 1 tablet 12h Aug, 30 days Active RESULTS No Results PROCEDURES No Known procedures IMMUNIZATIONS No Known Immunizations
--- OUTSIDE RECORDS SUMMARY | 2018-02-04 15:14 | XMS REPORT ---
Author Author DULCE EDUIN Organization [facility] Address [address] [place] [address] Care Team Providers Care Motor Pool Clerk Name Role Phone EDUIN CARDONA Unavailable PROBLEMS Type Condition ICD9-CM Code FVT24-BQ Code Onset Dates Condition Status SNOMED Code Problem CAD (coronary artery disease) I25.10 Active 64142319 Problem Encounter for dental examination Z01.20 Active 253772373 Problem Shoulder pain, left M25.512 Active 35270882 Problem Post-traumatic stress disorder, unspecified F43.10 Active 24095569 Problem Hyperlipidemia E78.5 Active 51265236 Problem Primary insomnia F51.01 Active 3574597 Problem Obesity E66.9 Active 567056162 Problem Chronic pain G89.29 Active 36159351 Problem Post-traumatic stress disorder, chronic F43.12 Active 490548375 Problem Bilateral headaches R51 Active 126913698 Problem Arrhythmia as indication for cardiac pacemaker replacement I49.9 Active 74379542 Problem Environmental allergies Z91.09 Active 429292848 Problem Blindness and low vision H54.10 Active 536587244 Problem HTN (hypertension) I10 Active 94960120 Problem Glaucoma H40.9 Active 99799463 Problem Problems related to release from [facility] Z65.2 Active 76320901 Problem Anxiety F41.9 Active 37347126 Problem Major depressive disorder, recurrent, moderate F33.1 Active 52053985 Problem Chronic tension headaches G44.229 Active 716517252 Problem Open-angle glaucoma of both eyes H40.10X0 Active 55039444 Problem Sleep apnea, obstructive G47.33 Active 83960299 Problem Cough R05 Active 60044703 Problem Mitral valve prolapse I34.1 Active 646099593 ALLERGIES Substance Reaction Event Type Date Status Penicillin G Potassium rash Drug Allergy Apr, Active Aspirin nausea and vomiting Drug Allergy Apr, Active Wasp venom anaphylaxis Non Drug Allergy Apr, Active SOCIAL HISTORY Never Assessed PLAN OF CARE Activity Details Follow Up 3 Months Reason:[facility] VITAL SIGNS Height 67 in 2016-04-23 Weight 275.8 lbs 2016-04-23 Temperature 98.0 degrees Fahrenheit 2016-04-23 Heart Rate 80 bpm 2016-04-23 Respiratory Rate 18 2016-04-23 BMI 43.19 kg/m2 2016-04-23 Blood pressure systolic 136 mmHg 2016-04-23 Blood pressure diastolic 92 mmHg 2016-04-23 MEDICATIONS Medication Instructions Dosage Frequency Start Date End Date Duration Status Timolol 0.5 % Ophthalmic Once a day 1 drop into affected eye 24h Dec, 30 days Active Metoprolol Succinate ER 200 MG Orally Once a day 1 tablet 24h Active Hydrocodone-Acetaminophen 7.5-325 MG Orally every 6 hrs 1 tablet as needed 6h Apr, Active Travatan 0.004 % Ophthalmic Once a day 1 drop into affected eye in the evening 24h May, 30 days Active Meclizine HCl 25 MG Orally PRN 1 tablet as needed Oct, Active EPINEPHrine HCl 0.3 mg as directed Oct, Active Xanax 1 MG Orally for anxiety 1/2 tab in AM and 1 tab at bedtime 28 Active Doxazosin Mesylate 8 MG Orally Once a day 1 tablet 24h Active Topamax 100 mg Orally Twice a day 1 tablet 12h Aug, Active Gabapentin 300 MG TAKE ONE CAPSULE BY MOUTH TWICE DAILY Active Furosemide 40 MG TAKE ONE TABLET BY MOUTH ONCE DAILY Active Zolpidem Tartrate 10 mg Orally Once a day ONE-HALF TO ONE TABLET 24h Active Zofran ODT 4 MG Orally every 8 hrs 1 tablet on the tongue and allow to dissolve 8h Apr, 30 day(s) Active Atorvastatin Calcium 40 mg Orally Once a day 1 tablet 24h 90 days Active Nitrostat 0.4 MG Sublingual every 5 minutes x 3 PRN 1 tablet 30 days Active RESULTS Name Result Date Reference Range [employer] 2016-04-23 PROCEDURES Procedure Date Ordered Result Body Site No Charge April 23, 2016 IMMUNIZATIONS No Known Immunizations MEDICAL (GENERAL) [...]
--- OUTSIDE RECORDS SUMMARY | 2018-02-04 15:15 | XMS REPORT ---
Author Author ALENA ÁLVAREZ Organization [facility] Address [address] [place] [address] Care Team Providers Care Equine Vet Name Role Phone ALENA ÁLVAREZ Unavailable PROBLEMS Type Condition ICD9-CM Code [id number] Code Onset Dates Condition Status SNOMED Code Problem Primary insomnia F51.01 Active 4418726 Problem Other male erectile dysfunction N52.8 Active 385220169 Problem Morbid (severe) obesity due to excess calories E66.01 Active 267468784 Problem Sarcoidosis D86.9 Active 92370189 Problem Blindness and low vision H54.10 Active 609447407 Problem Problems related to release from usp Z65.2 Active 301885218227448 Problem Myocarditis, unspecified chronicity, 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 Active 90231079 Problem Chronic pain G89.29 Active 15027999 Problem 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 Active 582475469 Problem Body mass index (BMI) of 40.0-44.9 in adult Z68.41 Active 986507867 Problem Chronic pain syndrome G89.4 Active 226116176 Problem Migraine without aura and without status migrainosus, not intractable G43.009 Active 127370475 Problem Anxiety F41.9 Active 00154038 Problem Major depressive disorder, recurrent, moderate F33.1 Active 94632371 Problem HTN (hypertension) I10 Active 76635517 Problem Chronic tension headaches G44.229 Active 221958530 Problem CAD (coronary artery disease) I25.10 Active 65051216 Problem Post-traumatic stress disorder, chronic F43.12 Active 571242275 Problem Hyperlipidemia E78.5 Active 62946748 Problem Open-angle glaucoma of both eyes H40.10X0 Active 76663628 Problem Environmental allergies Z91.09 Active 308260028 Problem Sleep apnea, obstructive G47.33 Active 30304695 Problem Mitral valve prolapse I34.1 Active 409216812 Problem Arrhythmia as indication for cardiac pacemaker replacement I49.9 Active 20486893 ALLERGIES No Information ENCOUNTERS Encounter Location Date Diagnosis [facility] [id number] [place] [address] 94930- 1470 Oct, [facility] [address] 77015- 1872 Aug, [facility] [facility] [id number] [place] [address] 23344- 6911 26 Jul, 2017 Post-traumatic stress disorder, chronic F43.12 ; Anxiety F41.9 ; Problems related to release from usp Z65.2 and BMI 40.0-44.9, adult Z68.41 [facility] [facility] [address] 62871- 0422 20 Jul, 2017 HTN (hypertension) I10 ; Body mass index (BMI) of 40.0-44.9 in adult Z68.41 and Acute swimmer''s ear of both sides H60.333 [facility] [facility] [address] 49456- 9268 19 Jul, 2017 Glaucoma H40.9 [facility] [facility] [id number] [place] [address] 87498- 9252 14 Jul, 2017 [facility] [facility] [id number] [place] [address] 10521- 2235 13 Jul, 2017 Sarcoidosis D86.9 [facility] [facility] [address] 53842- 8867 12 Jul, 2017 Left leg pain M79.605 [facility] [facility] [id number] [place] [address] 64701- 2919 12 Jul, 2017 Sarcoidosis D86.9 [facility] [facility] [id number] [place] [address] 33257- 4219 Jul, Post-traumatic stress disorder, unspecified F43.10 ; Major depressive disorder, recurrent, moderate F33.1 and Problems related to release from usp Z65.2 [facility] [id number] [place] [address] 97415- 3899 June, [facility] [address] [address] June, Sore throat J02.9 and BMI 40.0-44.9, adult Z68.41 [facility] [address] [address] 6863 June, [facility] [id number] [place] [address] 35701- 4687 June, [facility] [id number] [place] [address] 49059- 2555 June, [facility] [id number] [place] [address] 67563- 9297 June, Left leg pain M79.605 [facility] [id number] [place] [address] 33879- 0210 June, Sarcoidosis D86.9 [facility] [id number] [place] [address] 12478- 3091 June, [facility] [id number] [place] [address] 48200- 4046 June, [facility] [id number] [place] [address] 75239- 0465 June, Left leg pain M79.605 [facility] [address] [address] 3[address] May, [facility] [id number] [address]- 6587 May, [facility] [address] [address]- 9343 May, [facility] [id number] [address] 8389 May, Left leg pain M79.605 [facility] [address] [address]- 0362 May, Post-traumatic stress disorder, unspecified F43.10 ; Major depressive disorder, recurrent, moderate F33.1 and Problems related to release from usp Z65.2 [facility] [id number] [place] [address] 21165- 8852 04 May, 2017 Chronic pain G89.29 ; Anxiety F41.9 ; Chest pain, unspecified type R07.9 and BMI 40.0-44.9, adult Z68.41 [facility] [address] 23809- 6284 30 Apr, 2017 [place] [id number] [place] [address] 24037- 0160 29 Apr, 2017 Left leg pain M79.605 [facility] [address] 17265- 2310 27 Apr, 2017 Post-traumatic stress disorder, unspecified F43.10 ; Problems related to release from usp Z65.2 ; Anxiety F41.9 and BMI 40.0-44.9 , adult Z68.41 [facility] [id number] [place] [address] 82424- 5605 Apr, [facility] [id number] [place] [address] 17954- 9738 Apr, Left leg pain M79.605 [facility] [facility] [id number] [place] [address] 67970- 4312 Apr, Post-traumatic stress disorder, unspecified F43.10 ; Major depressive disorder, recurrent, moderate F33.1 and Problems related to release from usp Z65.2 [facility] [facility] [id number] [place] [address] 39072- 0279 Apr, [facility] [address] 06775- 6797 Apr, Chronic pain G89.29 ; 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 [address] [id number] Mar, Dental examination Z01.20 [place] [address] 53206- 3503 Mar, [facility] [address] 6[address]21 -0659 Mar, Cough R05 ; Viral gastroenteritis A08.4 and BMI 40.0-44.9, adult Z68.41 [place] [address] 27986- 0715 Mar, Left leg pain M79.605 [place] [address] 81869- 1443 Mar, Post-traumatic stress disorder, unspecified F43.10 ; Major depressive disorder, recurrent, moderate F33.1 and Problems related to release from usp Z65.2 [place] [address] 64792- 5837 Feb, Left leg pain M79.605 [facility] [address] 98423- 5595 Feb, [place] [address] 86692- 0808 Feb, BMI 40.0-44.9, adult Z68.41 ; Chronic pain syndrome G89.4 ; Migraine without aura and without status migrainosus, not intractable G43.009 ; Mitral valve prolapse I34.1 and 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 [facility] [id number] [place] [address] 45236- 1095 Feb, Post-traumatic stress disorder, chronic F43.12 ; Anxiety F41.9 ; Problems related to release from usp Z65.2 and BMI 40.0-44.9, adult Z68.41 [facility] [id number] [place] [address] 92567- 6163 Feb, Post-traumatic stress disorder, unspecified F43.10 ; Major depressive disorder, recurrent, moderate F33.1 and Problems related to release from usp Z65.2 [facility] [id number] [place] [address] 35164- 2021 Feb, Left leg pain M79.605 [facility] [facility] [id number] [place] [address] 51786- 1385 Jan, Post-traumatic stress disorder, unspecified F43.10 ; Major depressive disorder, recurrent, moderate F33.1 and Problems related to release from usp Z65.2 [place] [id number] [place] [address] 06626- 3495 Jan, [facility] [facility] [id number] [place] [address] 28578- 3226 Jan, [facility] [facility] [id number] [place] [address] 85922- 8887 Jan, Anxiety F41.9 [facility] [facility] [id number] [place] [address] 97805- 9675 Jan, Left leg pain M79.605 [facility] [id number] [place] [address] 61852- 8447 Dec, Left leg pain M79.605 [facility] [id number] [place] [address] 33949- 4226 Dec, [place] [id number] [place] [address] 65791- 9784 Dec, Post-traumatic stress disorder, unspecified F43.10 ; Major depressive disorder, recurrent, moderate F33.1 and Problems related to release from usp Z65.2 [place] [address] 83762- 6523 31 Nov, 2016 Chronic pain G89.29 and Anxiety F41.9 [facility] [address] 59061- 5459 24 Nov, 2016 Chronic pain G89.29 and Anxiety F41.9 [facility] [address] 16564- 9124 16 Nov, 2016 Post-traumatic stress disorder, unspecified F43.10 ; Major depressive disorder, recurrent, moderate F33.1 and Problems related to release from usp Z65.2 [facility] [address] 97103- 8992 09 Nov, 2016 Other abnormal findings in specimens from other organs, systems and tissues R89.8 ; Other male erectile dysfunction N52.8 ; Body mass index (BMI) of 40.0-44.9 in adult Z68.41 and Morbid (severe) obesity due to excess calories E66.[address] 21647- 4748 02 Nov, 2016 Post-traumatic stress disorder, unspecified F43.10 ; Major depressive disorder, recurrent, moderate F33.1 and Problems related to release from usp Z65.2 [facility] [address] [id number] Oct, Dental examination Z01.20 [facility] [facility] [id number] [place] [address] 18267- 2644 Oct, [address] 93879- 2457 Oct, Encounter for immunization Z23 [facility] [address] 77741- 9750 26 Oct, 2016 Chronic pain G89.29 ; Anxiety F41.9 ; Arrhythmia as indication for cardiac pacemaker replacement I49.9 and Glaucoma H40.9 [facility] [facility] [address], [place] [address]- 7393 Oct, Anxiety F41.9 ; Post-traumatic stress disorder, chronic F43.12 and Problems related to release from usp Z65.2 [facility] [facility] [id number] [place] [address] 24836- 8214 07 Oct, 2016 Post-traumatic stress disorder, unspecified F43.10 ; Major depressive disorder, recurrent, moderate F33.1 and Problems related to release from usp Z65.2 [facility] [facility] [id number] [place] [address] 87890- 4165 Sep, Chronic pain G89.29 and Anxiety F41.9 [facility] [facility] [id number] [place] [address] 85191- 2950 Sep, Post-traumatic stress disorder, unspecified F43.10 ; Major depressive disorder, recurrent, moderate F33.1 and Problems related to release from usp Z65.2 [facility] [facility] [id number] [place] [address] 73862- 9427 Sep, Post-traumatic stress disorder, unspecified F43.10 ; Major depressive disorder, recurrent, moderate F33.1 and Problems related to release from usp Z65.2 [facility] [id number] [place] [address] 50006- 0598 Sep, Chronic pain G89.29 [facility] [id number] [place] [address] 49101- 4021 Aug, Dental caries, unspecified K02.9 [facility] [id number] [place] [address] 79787- 6429 Aug, Sleep apnea, obstructive G47.33 ; Obesity E66.9 ; Chronic pain G89.29 ; HTN (hypertension) I10 ; Major depressive disorder, recurrent, moderate F33.1 ; Anxiety F41.9 ; Chronic tension headaches G44.229 ; Mitral valve prolapse I34.1 ; Arrhythmia as indication for cardiac pacemaker replacement I49.9 ; Dental caries, unspecified K02.9 ; Primary insomnia F51.01 and Hyperlipidemia E78.5 [facility] [id number] [place] [address] 96012- 4637 Aug, Post-traumatic stress disorder, unspecified F43.10 ; Major depressive disorder, recurrent, moderate F33.1 and Problems related to release from usp Z65.2 [facility] [id number] [place] [address] 88951- 2063 Aug, Dental examination Z01.20 [facility] [id number] [place] [address] [id number] 13 Aug, 2016 Dental examination Z01.20 [facility] [id number] [place] [address] 30866- 9273 06 Aug, 2016 Post-traumatic stress disorder, unspecified F43.10 ; Major depressive disorder, recurrent, moderate F33.1 and Problems related to release from usp Z65.2 [facility] [id number] [place] [address] 61739- 9327 05 Aug, 2016 Chronic pain G89.29 and Primary insomnia F51.01 [facility] [id number] [place] [address] 55426- 6581 Jul, [facility] [facility] [id number] [place] [address] 91077- 1554 Jul, [facility] [id number] [place] [address] 40961- 0258 Jul, Nausea R11.0 [facility] [id number] [place] [address] 51759- 4360 Jul, Arrhythmia as indication for cardiac pacemaker replacement I49.9 [facility] [facility] [id number] [place] [address] 10110- 5326 Jul, Post-traumatic stress disorder, unspecified F43.10 ; Major depressive disorder, recurrent, moderate F33.1 and Problems related to release from usp Z65.2 [facility] [id number] [place] [address] 32805- 4873 09 Jul, 2016 Anxiety F41.9 [facility] [id number] [place] [address] 35560- 4778 08 Jul, 2016 Chronic pain G89.29 [facility] [id number] [place] [address] 60765- 9798 Jul, Sleep apnea, obstructive G47.33 ; Hyperlipidemia E78.5 ; Chronic pain G89.29 ; Blindness and low vision H54.10 ; Major depressive disorder, recurrent, moderate F33.1 ; Anxiety F41.9 ; Mitral valve prolapse I34.1 ; Arrhythmia as indication for cardiac pacemaker replacement I49.9 ; Primary insomnia F51.01 ; Bilateral headaches R51 and Environmental allergies Z91.09 [place] [id number] [place] [address] 07098- 4818 Jul, Post-traumatic stress disorder, unspecified F43.10 ; Major depressive disorder, recurrent, moderate F33.1 and Problems related to release from usp Z65.2 [facility] [facility] [id number] [place] [address] 40987- 2370 June, Post-traumatic stress disorder, chronic F43.12 ; Anxiety F41.9 ; Problems related to release from usp Z65.2 ; Sleep apnea, obstructive G47.33 and Primary insomnia F51.01 [facility] [address] [place] [address] 85799- 8960 June, [facility] [id number] [place] [address] 73807- 3291 June, [facility] [facility] [id number] [place] [address] 21614- 6565 June, [facility] [facility] [id number] [place] [address] 06340- 4517 June, Chronic pain G89.29 [facility] [facility] [id number] [place] [address] 40104- 9398 June, Chronic pain G89.29 [facility] [facility] [address] [place] [address]- 5767 June, Lipoma of left lower extremity D17.24 ; Open wound T14.8 and Swelling of left lower extremity M79.89 [place] [facility] [address] 80425- 6271 June, Post-traumatic stress disorder, unspecified F43.10 ; Major depressive disorder, recurrent, moderate F33.1 and Problems related to release from usp Z65.2 [place] [address] 23813- 7267 May, Lipoma of left lower extremity D17.24 ; Major depressive disorder, recurrent, moderate F33.1 ; Sleep apnea, obstructive G47.33 ; Hyperlipidemia E78.5 ; Obesity E66.9 ; HTN (hypertension) I10 ; Glaucoma H40.9 ; CAD (coronary artery disease) I25.10 ; Chronic tension headaches G44.229 ; Chronic pain G89.29 ; Anxiety F41.9 ; Nausea R11.0 and Primary insomnia F51.01 [place] [address] 88234- 0689 May, [place] [address] 84500- 2862 May, Chronic pain G89.29 [place] [address] 74576- 6900 May, [place] [id number] [place] [address] 52601- 3290 Apr, Post-traumatic stress disorder, unspecified F43.10 ; Major depressive disorder, recurrent, moderate F33.1 and Problems related to release from usp Z65.2 [place] [address] 09474- 6727 Apr, Primary insomnia F51.01 ; Post-traumatic stress disorder, chronic F43.12 and Problems related to release from usp Z65.2 [place] [address] 35384- 5179 17 Apr, 2016 Post-traumatic stress disorder, unspecified F43.10 ; Major depressive disorder, recurrent, moderate F33.1 and Problems related to release from usp Z65.2 [place] [id number] [place] [address] 49578- 3394 16 Apr, 2016 [place] [id number] [place] [address] 61991- 9030 16 Apr, 2016 Sleep apnea, obstructive G47.33 ; Chronic pain G89.29 ; HTN (hypertension) I10 ; Mitral valve prolapse I34.1 ; Shoulder pain, left M25.512 ; Arrhythmia as indication for cardiac pacemaker replacement I49.9 ; Glaucoma H40.9 ; Bilateral headaches R51 ; Environmental allergies Z91.09 ; Primary insomnia F51.01 and Nausea R11.0 [place] [id number] [place] [address] 93470- 0346 15 Apr, 2016 [place] [address] 63750- 5693 15 Apr, 2016 [place] [id number] [place] [address] 15649- 0997 Apr, Post-traumatic stress disorder, unspecified F43.10 ; Major depressive disorder, recurrent, moderate F33.1 and Problems related to release from usp Z65.2 [facility] [id number] [place] [address] 38154- 9068 07 Apr, 2016 HTN (hypertension) I10 [place] [facility] [id number] [place] [address] 71982- 6642 07 Apr, 2016 HTN (hypertension) I10 [facility] [id number] [place] [address] 64155- 4296 14 Mar, 2016 Chronic pain G89.29 ; Primary insomnia F51.01 and Problems related to release from usp Z65.2 [place] [id number] [place] [address] 72080- 7394 07 Mar, 2016 Post-traumatic stress disorder, unspecified F43.10 ; Major depressive disorder, recurrent, moderate F33.1 and Problems related to release from usp Z65.2 [place] [address] [place] [address] 93348- 7147 Feb, Post-traumatic stress disorder, unspecified F43.10 ; Major depressive disorder, recurrent, moderate F33.1 and Problems related to release from usp Z65.2 [place] [id number] [place] [address] 71366- 9192 Feb, Chronic tension headaches G44.229 [place] [id number] [place] [address] 71223- 7487 17 Feb, 2016 Sleep apnea, obstructive G47.33 [...] I49.9 and Primary insomnia F51.01 [place] [id number] [place] [address] 16030- 6933 Feb, Post-traumatic stress disorder, unspecified F43.10 and Chronic pain G89.29 [address] [place] [address] 24763- 6947 Feb, [facility] [id number] [place] [address] [id number] Feb, Dental caries K02.9 [place] [address] [place] [address] 89151- 2376 Feb, [place] [id number] [place] [address] 26686- 5842 Feb, Post-traumatic stress disorder, unspecified F43.10 ; Major depressive disorder, recurrent, moderate F33.1 and Problems related to release from usp Z65.2 [place] [address], [place] [address]- 0038 Jan, Sleep apnea, obstructive G47.33 and Chronic pain G89.29 [place] [id number] [place] [address] 83610- 6924 Jan, [place] [id number] [place] [address] 06738- 6418 14 Jan, 2016 Dental examination Z01.20 [place] [id number] [place] [address] 35260- 1603 09 Jan, 2016 [place] [id number] [place] [address] 34830- 7235 Jan, [place] [id number] [place] [address] 43860- 0494 29 Dec, 2015 Post-traumatic stress disorder, unspecified F43.10 ; Major depressive disorder, recurrent, moderate F33.1 and Problems related to release from usp Z65.2 [place] [id number] [place] [address] 67804- 0256 29 Dec, 2015 Encounter for immunization Z23 ; Problems related to release from usp Z65.2 ; Sleep apnea, obstructive G47.33 and Post-traumatic stress disorder, chronic F43.12 [place] [address] [id number] [place] [address] 89340- 8686 18 Dec, 2015 Sleep apnea, obstructive G47.33 ; Hyperlipidemia E78.5 ; Chronic pain G89.29 ; Glaucoma H40.9 ; HTN (hypertension) I10 ; Post-traumatic stress disorder, unspecified F43.10 ; Anxiety F41.9 ; Chronic tension headaches G44.229 ; Mitral valve prolapse I34.1 and CAD (coronary artery disease) I25.10 [place] [id number] [place] [address] 87976- 9127 15 Dec, 2015 Post-traumatic stress disorder, unspecified F43.10 ; Major depressive disorder, recurrent, moderate F33.1 and Problems related to release from usp Z65.2 [place] [address] [address]- 6687 Nov, Chronic pain G89.29 [place] [id number] [place] [address] 25400- 2370 Nov, Post-traumatic stress disorder, unspecified F43.10 ; Major depressive disorder, recurrent, moderate F33.1 and Problems related to release from usp Z65.2 [place] [id number] [place] [address] 06976- 8305 Oct, [place] [id number] [place] [address] 80704- 9761 Oct, [place] [id number] [place] [address] 99388- 9848 Oct, Post-traumatic stress disorder, unspecified F43.10 ; Major depressive disorder, recurrent, moderate F33.1 and Problems related to release from usp Z65.2 [place] [id number] [place] [address] 59416- 0799 08 Oct, 2015 [place] [id number] [place] [address] 60229- 7083 07 Oct, 2015 Environmental allergies Z91.09 ; Cough R05 and Open-angle glaucoma of both eyes H40.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 [place] [address] [place] [address] 05086- 2440 Sep, [place] [id number] [place] [address] 13825- 7909 Sep, Post-traumatic stress disorder, unspecified F43.10 ; Major depressive disorder, recurrent, moderate F33.1 and Problems related to release from usp Z65.2 [place] [address] [place] [address] [id number] [place] [address] 60749- 6786 Sep, Chronic pain G89.29 [place] [id number] [place] [address] 68243- 8533 Sep, Pain in left shoulder M25.512 ; Pain in right shoulder M25.511 and Other chronic pain G89.29 [facility] [id number] [address] Sep, [facility] [id number] [place] [address] [id number] Sep, [facility] [id number] [place] [address] 36369- 5720 Sep, [facility] [id number] [place] [address] [id number] Aug, Dental examination Z01.20 [facility] [id number] [place] [address] 15037- 9976 Aug, Post-traumatic stress disorder, unspecified F43.10 ; Open- angle glaucoma of both eyes H40.10X0 and Problems related to release from usp Z65.2 [facility] [id number] [place] [address] 96888- 4332 Aug, [facility] [id number] [place] [address] 72515- 5721 Aug, Sleep apnea, obstructive G47.33 ; Obesity E66.9 ; Hyperlipidemia E78.5 ; Bilateral headaches R51 ; HTN (hypertension) I10 ; Post- traumatic stress disorder, unspecified F43.10 ; Anxiety F41.9 ; Neuropathy G62.9 ; Glaucoma H40.9 and Chronic pain G89.29 [facility] [id number] [id number] Aug, Encounter for dental examination Z01.20 [facility] [id number] [place] [address] 20410- 1123 Aug, Post-traumatic stress disorder, unspecified F43.10 ; Major depressive disorder, recurrent, moderate F33.1 and Problems related to release from usp Z65.2 [facility] [address], [place] [address] Aug, [facility] [id number] [place] [address] 17937- 4292 Jul, [facility] [id number] [address] 7[address] Jul, Post-traumatic stress disorder, unspecified F43.10 and Major depressive disorder, recurrent, moderate F33.1 [facility] [address] [address] 8808 Jul, [facility] [id number] [place] [address] 07003- 4838 Jul, [facility] [address] [address] 75[address] Jul, Chronic pain G89.29 [facility] [id number] [place] [address] 38134- 2267 June, Post-traumatic stress disorder, unspecified F43.10 and Major depressive disorder, recurrent, moderate F33.1 [facility] [address] [address] 9[address] June, [facility] [id number] [address] 45[address] June, Chronic pain G89.29 [facility] [id number] [place] [address] 05244- 6696 June, Post-traumatic stress disorder, unspecified F43.10 and Major depressive disorder, recurrent, moderate F33.1 [facility] [address] [address]243 May, Post-traumatic stress disorder, unspecified F43.10 and Major depressive disorder, recurrent, moderate F33.1 [facility] [address] [address] 9648 May, [facility] [address] [address] 5[address] May, [facility] [address] [address] 7515 May, [facility] [id number] [place] [address] 55303- 7586 Apr, [facility] [address] 52763- 4062 Apr, Post-traumatic stress disorder, unspecified F43.10 and Sleep apnea, obstructive G47.33 [place] [address] 26302- 8602 Apr, [facility] [id number] [place] [address] 81334- 8511 Apr, Shoulder pain, left M25.512 [place] [address] 21392- 4177 Apr, Post-traumatic stress disorder, unspecified F43.10 and Major depressive disorder, recurrent, moderate F33.1 [place] [address] 10249- 6837 Apr, [facility] [id number] [place] [address] 57162- 9429 Apr, [place] [id number] [place] [address] 55289- 5215 08 Apr, 2015 [facility] [id number] [place] [address] 04010- 2450 Apr, Left shoulder pain M25.512 [facility] [id number] [place] [address] 33157- 5110 Mar, [facility] [id number] [place] [address] 78058- 8225 Mar, [facility] [id number] [place] [address] 62762- 6034 18 Mar, 2015 [facility] [id number] [place] [address] 29750- 5420 Mar, Sleep apnea, obstructive G47.33 ; Obesity E66.9 ; Chronic pain G89.29 ; Hyperlipidemia E78.5 ; HTN (hypertension) I10 ; Blindness and low vision H54.10 ; Major depressive disorder, recurrent, moderate F33.1 and Anxiety F41.9 [place] [id number] [place] [address] 84601- 0927 Mar, [place] [id number] [place] [address] 53466- 5617 Mar, Post-traumatic stress disorder, unspecified F43.10 and Major depressive disorder, recurrent, moderate F33.1 [place] [id number] [place] [address] 58432- 0165 Mar, [place] 455796- 9868 04 Mar, 2015 HTN (hypertension) I10 ; Blindness and low vision H54.10 ; Obesity E66.9 ; Hyperlipidemia E78.5 ; Glaucoma H40.9 ; Chronic pain G89.29 and CAD (coronary artery disease) I25.10 [place] [id number] [place] [address] 61147- 6937 Feb, [address] [id number] [place] [address] 22973- 8117 Feb, Post-traumatic stress disorder, unspecified F43.10 ; Obesity E66.9 ; Sleep apnea, obstructive G47.33 and Open-angle glaucoma of both eyes H40.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 [place] [id number] [place] [address] 42636- 4547 Feb, Post-traumatic stress disorder, unspecified F43.10 and Major depressive disorder, recurrent, moderate F33.1 [place] [id number] [place] [address] 20212- 8418 Feb, [place] [id number] [place] [address] 56176- 0016 Feb, [place] [id number] [place] [address] 48995- 1263 Feb, HTN (hypertension) I10 ; Post-traumatic stress disorder, unspecified F43.10 ; Blindness and low vision H54.10 ; Obesity E66.9 ; Hyperlipidemia E78.5 ; Chronic pain G89.29 ; Glaucoma H40.9 ; Mitral valve prolapse I34.1 and Bilateral headaches R51 [place] [address] 41624- 4456 Feb, [place] [address] 847733- 9437 Feb, Post-traumatic stress disorder, unspecified F43.10 and Major depressive disorder, recurrent, moderate F33.[address] 84750- 7474 Feb, [place] [address] 80655- 7763 Feb, [place] [address] 79137- 2236 Jan, [place] [address] 70724- 6862 Jan, [address] 66512- 9648 Jan, Obesity E66.9 ; HTN (hypertension) I10 ; Blindness and low vision H54.10 ; Major depressive disorder, recurrent, moderate F33.1 ; Glaucoma H40.9 ; Hyperlipidemia E78.5 ; Sleep apnea, obstructive G47.33 ; Chronic pain G89.29 ; Anxiety F41.9 ; Chronic tension headaches G44.229 and Cough R05 [address] 20833- 8748 Jan, [place] [id number]- 0463 Jan, [address] 64813- 8047 Jan, Post-traumatic stress disorder, unspecified F43.10 ; Obesity E66.9 ; Sleep apnea, obstructive G47.33 and Open-angle glaucoma of both eyes H40.10X0 [place] [address] [id number]- 2700 Jan, [place] [address]6895- 8647 Jan, Post-traumatic stress disorder, unspecified F43.10 and Major depressive disorder, recurrent, moderate F33.1 [place] [address] 97529- 8398 Dec, [place] [address] 566890- 1950 Dec, Sleep apnea, obstructive G47.33 ; Obesity E66.9 ; Hyperlipidemia E78.5 ; Glaucoma H40.9 ; Chronic pain G89.29 ; HTN (hypertension ) I10 ; Blindness and low vision H54.10 ; Anxiety F41.9 and CAD (coronary artery disease) I25.10 [place] [address] 83899- 3816 Nov, [place] [address] 36819- 2824 Nov, [place] [address] 90116- 0915 Nov, [place] [address] 00697- 4924 Nov, [place] [address] 94679- 0675 Nov, [place] [id number]- 7968 Nov, Encounter for immunization Z23 ; Sleep apnea, obstructive G47.33 ; Obesity E66.9 ; Hyperlipidemia E78.5 ; Glaucoma H40.9 ; Chronic pain G89.29 ; Anxiety F41.9 ; Chronic tension headaches G44.229 and HTN (hypertension ) I10 [facility] [address], [place] [address]- 7918 Nov, [facility] [id number] [place] [address] 30427- 8664 Nov, [facility] [id number] [place] [address] 56373- 5248 Nov, Dizziness R42 [facility] [id number] [place] [address] 09157- 8518 Nov, [facility] [id number] [place] [address] 97676- 6282 Oct, [facility] [id number] [place] [address] 31607- 2555 Oct, [facility] [id number] [place] [address] 73474- 7698 Oct, [facility] [id number] [place] [address] 32246- 4791 Oct, [facility] [id number] [place] [address] 50236- 7693 Oct, Dizziness 780.4 ; Essential hypertension 401.9 ; Obesity 278.00 ; Hyperlipidemia 272.4 ; Chronic pain 338.29 ; Glaucoma 365.9 and Anxiety 300.00 [facility] [id number] [place] [address] 99820- 1355 Oct, Essential hypertension 401.9 ; Hyperlipidemia 272.4 ; Glaucoma 365.9 ; Obesity 278.00 ; Chronic pain 338.29 and Allergy to insects V15.06 [facility] [id number] [place] [address] 44460- 2720 Sep, [facility] [id number] [place] [address] 53370- 7809 Sep, [facility] [id number] [place] [address] 84554- 1939 Sep, [facility] [id number] [address]- 9944 Sep, [facility] [address] [facility] [id number] [place] [address]- 6392 Aug, Essential hypertension 401.9 ; Obesity 278.00 [...] 4 times a day 1 tablet 6h Mar, 28 days Active RESULTS No Results PROCEDURES [...]
--- OUTSIDE RECORDS SUMMARY | 2018-02-04 15:16 | XMS REPORT ---
Author Author ASHLEY BRASHER [facility] Address [address] [place] [address] Care Team Providers Care Rattan Worker Name Role Phone ASHLEY BRASHER Unavailable PROBLEMS Type Condition ICD9-CM Code PAA42-VN Code Onset Dates Condition Status SNOMED Code Problem Arrhythmia as indication for cardiac pacemaker replacement I49.9 Active 90913522 Problem Body mass index (BMI) of 40.0-44.9 in adult Z68.41 Active 926906651 Problem Primary insomnia F51.01 Active 5624396 Problem Sarcoidosis D86.9 Active 11105646 Problem Chronic pain G89.29 Active 68811035 Problem Chronic pain syndrome G89.4 Active 075341429 Problem Sleep apnea, obstructive G47.33 Active 05034251 Problem Hyperlipidemia E78.5 Active 84595713 Problem Other male erectile dysfunction N52.8 Active 644025609 Problem Morbid (severe) obesity due to excess calories E66.01 Active 689514526 Problem Migraine without aura and without status migrainosus, not intractable G43.009 Active 330623853 Problem 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 Active 628014882 Problem Chronic tension headaches G44.229 Active 431253149 Problem Anxiety F41.9 Active 49851886 Problem HTN (hypertension) I10 Active 48629441 Problem Blindness and low vision H54.10 Active 487357718 Problem Mitral valve prolapse I34.1 Active 859065507 Problem CAD (coronary artery disease) I25.10 Active 10672701 Problem Major depressive disorder, recurrent, moderate F33.1 Active 25181979 Problem Post-traumatic stress disorder, chronic F43.12 Active 032930003 Problem Myocarditis, unspecified chronicity, 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 Active 04849557 Problem Open-angle glaucoma of both eyes H40.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 Active 67816206 Problem Environmental allergies Z91.09 Active 568882734 ALLERGIES Substance Reaction Event Type Date Status Xalatan upper lid irritation Drug Allergy Dec, Active Penicillin G Potassium rash Drug Allergy Dec, Active Aspirin nausea and vomiting Drug Allergy Dec, Active bandaides blisters Non Drug Allergy Dec, Active Wasp venom anaphylaxis Non Drug Allergy Dec, Active ENCOUNTERS Encounter Location Date Diagnosis [facility] [id number], [place] [address] Jul, [facility] [id number] [place] [address] 61288- 0025 Jul, [facility] [id number] [place] [address] 79309- 6040 Jul, [facility] [id number] [place] [address] 99970- 7956 June, [facility] [id number] [place] [address] 61474 -4508 June, Sore throat J02.9 [facility] [id number] [place] [address] 95241- 3632 June, [facility] [id number] [place] [address] 79172- 7001 June, [facility] [id number] [place] [address] 21157- 1912 June, [facility] [id number] [place] [address] 59204- 1860 June, Left leg pain M79.605 [facility] [id number] [place] [address] 43983- 0873 June, Sarcoidosis D86.9 [facility] [id number] [place] [address] 59682- 1138 June, [facility] [id number] [place] [address] 04425- 8450 June, [facility] [id number] [place] [address] 51856- 3484 June, Left leg pain M79.605 [facility] [address], [place] [address] 1371 May, [facility] [id number] [place] [address] 65745- 1299 May, [facility] [id number] [place] [address] 37552- 9127 May, [facility] [id number] [place] [address] 79080- 2586 May, Left leg pain M79.605 [facility] [id number] [place] [address] 23785- 3030 May, Post-traumatic stress disorder, unspecified F43.10 ; Major depressive disorder, recurrent, moderate F33.1 and Problems related to release from mcfp Z65.2 [place] [id number] [place] [address] 52774- 0143 May, Chronic pain G89.29 ; Anxiety F41.9 ; Chest pain, unspecified type R07.9 and BMI 40.0-44.9, adult Z68.41 [place] [id number] [place] [address] 71643- 6840 Apr, [facility] [id number] [place] [address] 37954- 6349 Apr, Left leg pain M79.605 [facility] [id number] [place] [address] 68139- 7521 Apr, Post-traumatic stress disorder, unspecified F43.10 ; Problems related to release from mcfp Z65.2 ; Anxiety F41.9 and BMI 40.0-44.9 , adult Z68.41 [facility] [id number] [place] [address] 76644- 0730 Apr, [facility] [id number] [place] [address] 91262- 7202 Apr, Left leg pain M79.605 [place] [address] 20716- 4722 13 Apr, 2017 Post-traumatic stress disorder, unspecified F43.10 ; Major depressive disorder, recurrent, moderate F33.1 and Problems related to release from mcfp Z65.2 [place] [address] 59062- 2733 12 Apr, 2017 [place] [address] 58708- 9480 12 Apr, 2017 Chronic pain G89.29 ; 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 ; Morbid (severe) obesity due to excess calories E66.01 ; Anxiety F41.9 and BMI 40.0-44.9, adult Z68.41 [facility] [place] [address] 82663 -8025 10 Apr, 2017 Sore throat J02.9 and BMI 40.0-44.9, adult Z68.41 [place] [address] 77981- 8213 02 Apr, 2017 Left leg pain M79.605 [facility] [address] [id number] 28 Mar, 2017 Dental examination Z01.20 [place] [address] 20434- 6800 23 Mar, 2017 [facility] [address] 34946 -3127 20 Mar, 2017 Cough R05 ; Viral gastroenteritis A08.4 and BMI 40.0-44.9, adult Z68.41 [place] [address] 31260- 2706 19 Mar, 2017 Left leg pain M79.605 [place] [address] 77971- 9317 06 Mar, 2017 Post-traumatic stress disorder, unspecified F43.10 ; Major depressive disorder, recurrent, moderate F33.1 and Problems related to release from mcfp Z65.2 [facility] [address], [place] [address] 8171 Feb, Left leg pain M79.605 [facility] [id number] [place] [address] 06789- 9510 Feb, [facility] [id number] [place] [address] 77839- 2127 Feb, BMI 40.0-44.9, adult Z68.41 ; Chronic pain syndrome G89.4 ; Migraine without aura and without status migrainosus, not intractable G43.009 ; Mitral valve prolapse I34.1 and 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 [place] [id number] [place] [address] 12521- 3302 Feb, Post-traumatic stress disorder, chronic F43.12 ; Anxiety F41.9 ; Problems related to release from mcfp Z65.2 and BMI 40.0-44.9, adult Z68.41 [place] [address] [place] [address] 95135- 9109 Feb, Post-traumatic stress disorder, unspecified F43.10 ; Major depressive disorder, recurrent, moderate F33.1 and Problems related to release from mcfp Z65.2 [place] [address] [place] [address] 51107- 4814 Feb, Left leg pain M79.605 [place] [id number] [place] [address] 39412- 2745 Jan, Post-traumatic stress disorder, unspecified F43.10 ; Major depressive disorder, recurrent, moderate F33.1 and Problems related to release from mcfp Z65.2 [place] [id number] [place] [address] 93055- 3701 Jan, [place] [id number] [place] [address] 26144- 7391 Jan, [place] [id number] [place] [address] 32118- 2047 Jan, Anxiety F41.9 [place] [address], [place] [address]- 3603 Jan, Left leg pain M79.605 [facility] [address], [place] [address]- 7925 Dec, Left leg pain M79.605 [place] [id number] [place] [address] 82593- 1755 Dec, [place] [address] [place] [address] 21913- 7174 15 Dec, 2016 Post-traumatic stress disorder, unspecified F43.10 ; Major depressive disorder, recurrent, moderate F33.1 and Problems related to release from mcfp Z65.2 [place] [address] [place] [address] 07622- 1360 31 Nov, 2016 Chronic pain G89.29 and Anxiety F41.9 [place] [id number] [place] [address] 08747- 2450 24 Nov, 2016 Chronic pain G89.29 and Anxiety F41.9 [place] [address] [place] [address] 36720- 1299 16 Nov, 2016 Post-traumatic stress disorder, unspecified F43.10 ; Major depressive disorder, recurrent, moderate F33.1 and Problems related to release from mcfp Z65.2 [place] [address], [place] [address]- 4345 09 Nov, 2016 Other abnormal findings in specimens from other organs, systems and tissues R89.8 ; Other male erectile dysfunction N52.8 ; Body mass index (BMI) of 40.0-44.9 in adult Z68.41 and Morbid (severe) obesity due to excess calories E66.01 [place] [id number] [address]- 5170 02 Nov, 2016 Post-traumatic stress disorder, unspecified F43.10 ; Major depressive disorder, recurrent, moderate F33.1 and Problems related to release from mcfp Z65.2 [facility] [id number] [id number] 29 Oct, 2016 Dental examination Z01.20 [place] [id number] [place] [address] 42471- 2498 Oct, [place] [address], [place] [address]- 6461 Oct, Encounter for immunization Z23 [place] [id number] [place] [address] 44207- 3860 Oct, Chronic pain G89.29 ; Anxiety F41.9 ; Arrhythmia as indication for cardiac pacemaker replacement I49.9 and Glaucoma H40.9 [place] [address] [place] [address] 28148- 4911 Oct, Anxiety F41.9 ; Post-traumatic stress disorder, chronic F43.12 and Problems related to release from mcfp Z65.2 [place] [address] [place] [address] 53432- 0171 Oct, Post-traumatic stress disorder, unspecified F43.10 ; Major depressive disorder, recurrent, moderate F33.1 and Problems related to release from mcfp Z65.2 [place] [address] [place] [address] 78499- 1117 Sep, Chronic pain G89.29 and Anxiety F41.9 [place] [id number] [place] [address] 25622- 3875 Sep, Post-traumatic stress disorder, unspecified F43.10 ; Major depressive disorder, recurrent, moderate F33.1 and Problems related to release from mcfp Z65.2 [place] [address] [place] [address] 46145- 7209 Sep, Post-traumatic stress disorder, unspecified F43.10 ; Major depressive disorder, recurrent, moderate F33.1 and Problems related to release from mcfp Z65.2 [place] [address] [place] [address] 92234- 3727 Sep, Chronic pain G89.29 [facility] [id number] [place] [address] 48360- 3693 Aug, Dental caries, unspecified K02.9 [facility] [id number] [place] [address] 14345- 9255 Aug, Sleep apnea, obstructive G47.33 ; Obesity E66.9 ; Chronic pain G89.29 ; HTN (hypertension) I10 ; Major depressive disorder, recurrent, moderate F33.1 ; Anxiety F41.9 ; Chronic tension headaches G44.229 ; Mitral valve prolapse I34.1 ; Arrhythmia as indication for cardiac pacemaker replacement I49.9 ; Dental caries, unspecified K02.9 ; Primary insomnia F51.01 and Hyperlipidemia E78.5 [place] [id number] [place] [address] 00684- 0140 Aug, Post-traumatic stress disorder, unspecified F43.10 ; Major depressive disorder, recurrent, moderate F33.1 and Problems related to release from mcfp Z65.2 [facility] [id number] [place] [address] 97912- 0388 Aug, Dental examination Z01.20 [facility] [id number] [place] [address] [id number] Aug, Dental examination Z01.20 [facility] [id number] [place] [address] 62697- 5389 Aug, Post-traumatic stress disorder, unspecified F43.10 ; Major depressive disorder, recurrent, moderate F33.1 and Problems related to release from mcfp Z65.2 [facility] [id number] [place] [address] 22284- 0308 Aug, Chronic pain G89.29 and Primary insomnia F51.01 [facility] [id number] [place] [address] 54798- 0696 Jul, [facility] [id number] [place] [address] 58314- 1722 Jul, [place] [id number] [place] [address] 17459- 3447 Jul, Nausea R11.0 [place] [id number] [place] [address] 66723- 2030 Jul, Arrhythmia as indication for cardiac pacemaker replacement I49.9 [place] [id number] [place] [address] 48864- 0155 13 Jul, 2016 Post-traumatic stress disorder, unspecified F43.10 ; Major depressive disorder, recurrent, moderate F33.1 and Problems related to release from mcfp Z65.[address] 40521- 2509 09 Jul, 2016 Anxiety F41.9 [place] [id number] [place] [address] 64608- 5647 08 Jul, 2016 Chronic pain G89.29 [address] [id number] [place] [address] 78928- 7776 02 Jul, 2016 Sleep apnea, obstructive G47.33 ; Hyperlipidemia E78.5 ; Chronic pain G89.29 ; Blindness and low vision H54.10 ; Major depressive disorder, recurrent, moderate F33.1 ; Anxiety F41.9 ; Mitral valve prolapse I34.1 ; Arrhythmia as indication for cardiac pacemaker replacement I49.9 ; Primary insomnia F51.01 ; Bilateral headaches R51 and Environmental allergies Z91.09 [address] [id number] [place] [address] 27876- 9094 Jul, Post-traumatic stress disorder, unspecified F43.10 ; Major depressive disorder, recurrent, moderate F33.1 and Problems related to release from mcfp Z65.2 [id number] [place] [address] 12028- 1384 June, Post-traumatic stress disorder, chronic F43.12 ; Anxiety F41.9 ; Problems related to release from mcfp Z65.2 ; Sleep apnea, obstructive G47.33 and Primary insomnia F51.01 [address] [address]- 5656 June, [facility] [address], [place] [address]- 8914 June, [facility] [address], [place] [address]- 7262 June, [place] [id number] [place] [address] 95171- 0453 June, Chronic pain G89.29 [place] [id number] [place] [address] 57053- 3447 June, Chronic pain G89.29 [place] [id number] [place] [address] 53615- 7353 June, Lipoma of left lower extremity D17.24 ; Open wound T14.8 and Swelling of left lower extremity M79.[address] [place] [address] 46639- 1541 June, Post-traumatic stress disorder, unspecified F43.10 ; Major depressive disorder, recurrent, moderate F33.1 and Problems related to release from mcfp Z65.2 [address] [place] [address] 96659- 8710 May, Lipoma of left lower extremity D17.24 ; Major depressive disorder, recurrent, moderate F33.1 ; Sleep apnea, obstructive G47.33 ; Hyperlipidemia E78.5 ; Obesity E66.9 ; HTN (hypertension) I10 ; Glaucoma H40.9 ; CAD (coronary artery disease) I25.10 ; Chronic tension headaches G44.229 ; Chronic pain G89.29 ; Anxiety F41.9 ; Nausea R11.0 and Primary insomnia F51.01 [place] [address], [place] [address]- 9609 May, [address], [place] [address]- 0160 May, Chronic pain G89.29 [address] [address]- 9256 May, [place] [id number] [place] [address] 65678- 7069 Apr, Post-traumatic stress disorder, unspecified F43.10 ; Major depressive disorder, recurrent, moderate F33.1 and Problems related to release from mcfp Z65.2 [place] [id number] [place] [address] 30070- 3620 Apr, Primary insomnia F51.01 ; Post-traumatic stress disorder, chronic F43.12 and Problems related to release from mcfp Z65.2 [place] [id number] [place] [address] 14003- 3054 17 Apr, 2016 Post-traumatic stress disorder, unspecified F43.10 ; Major depressive disorder, recurrent, moderate F33.1 and Problems related to release from mcfp Z65.2 [place] [id number] [place] [address] 43158- 8364 Apr, [place] [id number] [place] [address] 82845- 4861 Apr, Sleep apnea, obstructive G47.33 ; Chronic pain G89.29 ; HTN (hypertension) I10 ; Mitral valve prolapse I34.1 ; Shoulder pain, left M25.512 ; Arrhythmia as indication for cardiac pacemaker replacement I49.9 ; Glaucoma H40.9 ; Bilateral headaches R51 ; Environmental allergies Z91.09 ; Primary insomnia F51.01 and Nausea R11.0 [place] [address] [place] [address] 05396- 1172 Apr, [place] [id number] [place] [address] 15649- 7530 Apr, [place] [id number] [place] [address] 18324- 7822 Apr, Post-traumatic stress disorder, unspecified F43.10 ; Major depressive disorder, recurrent, moderate F33.1 and Problems related to release from mcfp Z65.[address] [id number] [address]- 1228 Apr, HTN (hypertension) I10 [place] [id number] [place] [address] 44551- 4743 Apr, HTN (hypertension) I10 [place] [address] [place] [address] 28271- 8121 14 Mar, 2016 Chronic pain G89.29 ; Primary insomnia F51.01 and Problems related to release from mcfp Z65.2 [place] [id number] [place] [address] 07480- 7995 07 Mar, 2016 Post-traumatic stress disorder, unspecified F43.10 ; Major depressive disorder, recurrent, moderate F33.1 and Problems related to release from mcfp Z65.2 [place] [id number] [place] [address] 83119- 4697 Feb, Post-traumatic stress disorder, unspecified F43.10 ; Major depressive disorder, recurrent, moderate F33.1 and Problems related to release from mcfp Z65.2 [place] [id number] [place] [address] 48110- 8470 Feb, Chronic tension headaches G44.229 [place] [id number] [place] [address] 52089- 2482 Feb, Sleep apnea, obstructive G47.33 ; Obesity [...] pacemaker replacement I49.9 and Primary insomnia F51.01 [place] [address] [place] [address] 98330- 2634 Feb, Post-traumatic stress disorder, unspecified F43.10 and Chronic pain G89.29 [place] [address], [place] [address]- 1991 13 Feb, 2016 [facility] [address] [place] [address] [id number] Feb, Dental caries K02.9 [place] [address] [place] [address] 67502- 5532 Feb, [place] [id number] [place] [address] 69857- 2978 Feb, Post-traumatic stress disorder, unspecified F43.10 ; Major depressive disorder, recurrent, moderate F33.1 and Problems related to release from mcfp Z65.2 [place] [id number] [place] [address] 94379- 9401 20 Jan, 2016 Sleep apnea, obstructive G47.33 and Chronic pain G89.29 [place] [id number] [place] [address] 30213- 3645 Jan, [place] [id number] [place] [address] 55981- 4265 14 Jan, 2016 Dental examination Z01.20 [place] [id number] [place] [address] 27924- 1159 09 Jan, 2016 [place] [address] [place] [address] 18478- 5904 Jan, [place] [id number] [place] [address] 98741- 8474 Dec, Post-traumatic stress disorder, unspecified F43.10 ; Major depressive disorder, recurrent, moderate F33.1 and Problems related to release from mcfp Z65.2 [place] [id number] [place] [address] 91610- 0791 29 Dec, 2015 Encounter for immunization Z23 ; Problems related to release from mcfp Z65.2 ; Sleep apnea, obstructive G47.33 and Post-traumatic stress disorder, chronic F43.12 [place] [id number] [place] [address] 64409- 0766 Dec, Sleep apnea, obstructive G47.33 ; Hyperlipidemia E78.5 ; Chronic pain G89.29 ; Glaucoma H40.9 ; HTN (hypertension) I10 ; Post-traumatic stress disorder, unspecified F43.10 ; Anxiety F41.9 ; Chronic tension headaches G44.229 ; Mitral valve prolapse I34.1 and CAD (coronary artery disease) I25.10 [place] [address] 96614- 8645 Dec, Post-traumatic stress disorder, unspecified F43.10 ; Major depressive disorder, recurrent, moderate F33.1 and Problems related to release from mcfp Z65.2 [place] [address] [place] [address]- 5644 Nov, Chronic pain G89.[address] 53638- 9252 Nov, Post-traumatic stress disorder, unspecified F43.10 ; Major depressive disorder, recurrent, moderate F33.1 and Problems related to release from mcfp Z65.2 [place] [address] 17843- 6219 Oct, [place] [address] 43311- 0098 23 Oct, 2015 [place] [id number] [place] [address] 25821- 7836 16 Oct, 2015 Post-traumatic stress disorder, unspecified F43.10 ; Major depressive disorder, recurrent, moderate F33.1 and Problems related to release from mcfp Z65.2 [place] [address] 23786- 8701 08 Oct, 2015 [place] [address]- 0302 07 Oct, 2015 Environmental allergies Z91.09 ; Cough R05 and Open-angle glaucoma of both eyes 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 [address] [place] [address]- 0502 Sep, [place] [id number] [place] [address] 73466- 4556 Sep, Post-traumatic stress disorder, unspecified F43.10 ; Major depressive disorder, recurrent, moderate F33.1 and Problems related to release from mcfp Z65.2 [place] [id number] [place] [address] 84175- 2530 Sep, Chronic pain G89.29 [place] [id number] [place] [address] 45429- 2749 Sep, Pain in left shoulder M25.512 ; Pain in right shoulder M25.511 and Other chronic pain G89.29 [place] [id number] [place] [address] 01909- 5299 Sep, [place] [id number] [place] [address] 66623- 2364 Sep, [facility] [id number] [place] [address] 04687- 3167 Sep, [facility] [id number] [place] [address] [id number] Aug, Dental examination Z01.20 [place] [id number] [place] [address] 79416- 1592 Aug, Post-traumatic stress disorder, unspecified F43.10 ; Open- angle glaucoma of both eyes H40.10X0 and Problems related to release from mcfp Z65.2 [place] [id number] [place] [address] 37205- 9546 Aug, [place] [id number] [place] [address] 29944- 8792 Aug, Sleep apnea, obstructive G47.33 ; Obesity E66.9 ; Hyperlipidemia E78.5 ; Bilateral headaches R51 ; HTN (hypertension) I10 ; Post- traumatic stress disorder, unspecified F43.10 ; Anxiety F41.9 ; Neuropathy G62.9 ; Glaucoma H40.9 and Chronic pain G89.29 [facility] [id number] [id number] Aug, Encounter for dental examination Z01.20 [facility] [address] [place] [address]- 8962 Aug, Post-traumatic stress disorder, unspecified F43.10 ; Major depressive disorder, recurrent, moderate F33.1 and Problems related to release from mcfp Z65.2 [facility] [address] [address]- 3995 Aug, [facility] [id number] [place] [address] 11503- 8822 Jul, [facility] [id number] [place] [address]5617- 7561 Jul, Post-traumatic stress disorder, unspecified F43.10 and Major depressive disorder, recurrent, moderate F33.1 [facility] [address] [address] Jul, [facility] [address] [address] Jul, [facility] [address] [address] Jul, Chronic pain G89.29 [facility] [address], [place] [address] June, Post-traumatic stress disorder, unspecified F43.10 and Major depressive disorder, recurrent, moderate F33.1 [facility] [address] [address] June, [facility] [address] [address]70 June, Chronic pain G89.29 [facility] [address], [place] [address] June, Post-traumatic stress disorder, unspecified F43.10 and Major depressive disorder, recurrent, moderate F33.1 [facility] [id number] [place] [address] 95478- 1437 May, Post-traumatic stress disorder, unspecified F43.10 and Major depressive disorder, recurrent, moderate F33.1 [facility] [id number] [place] [address] 21108- 1374 May, [facility] [id number] [place] [address] 29490- 6923 May, [facility] [id number] [place] [address] 19824- 4041 May, [facility] [id number] [place] [address] 44146- 8644 Apr, [facility] [id number] [place] [address] 80596- 8043 Apr, Post-traumatic stress disorder, unspecified F43.10 and Sleep apnea, obstructive G47.33 [facility] [id number] [place] [address] 76080- 5957 Apr, [facility] [id number] [place] [address] 09346- 0690 Apr, Shoulder pain, left M25.512 [facility] [id number] [place] [address] 37178- 3009 18 Apr, 2015 Post-traumatic stress disorder, unspecified F43.10 and Major depressive disorder, recurrent, moderate F33.1 [facility] [id number] [place] [address] 39343- 3215 17 Apr, 2015 [facility] [id number] [place] [address] 65378- 3362 11 Apr, 2015 [facility] [id number] [place] [address] 60491- 6342 08 Apr, 2015 [facility] [id number] [place] [address] 66743- 9856 Apr, Left shoulder pain M25.512 [facility] [id number] [place] [address] 64483- 0975 Mar, [facility] [id number] [place] [address] 08447- 0643 Mar, [facility] [id number] [place] [address] 918059- 8907 Mar, [facility] [id number] [place] [address] 68484- 1536 Mar, Sleep apnea, obstructive G47.33 ; Obesity E66.9 ; Chronic pain G89.29 ; Hyperlipidemia E78.5 ; HTN (hypertension) I10 ; Blindness and low vision H54.10 ; Major depressive disorder, recurrent, moderate F33.1 and Anxiety F41.9 [place] [id number] [place] [address] 30899- 4595 Mar, [facility] [id number] [place] [address] 29817- 5712 Mar, Post-traumatic stress disorder, unspecified F43.10 and Major depressive disorder, recurrent, moderate F33.1 [facility] [id number] [place] [address] 75060- 0516 08 Mar, 2015 [facility] [id number] [place] [address] 98835- 9399 04 Mar, 2015 HTN (hypertension) I10 ; Blindness and low vision H54.10 ; Obesity E66.9 ; Hyperlipidemia E78.5 ; Glaucoma H40.9 ; Chronic pain G89.29 and CAD (coronary artery disease) I25.10 [facility] [id number] [place] [address] 99723- 5594 Feb, [facility] [id number] [place] [address] 65810- 5624 Feb, Post-traumatic stress disorder, unspecified F43.10 ; Obesity E66.9 ; Sleep apnea, obstructive G47.33 and Open-angle glaucoma of both eyes H40.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 [facility] [id number] [place] [address] 25326- 9679 Feb, Post-traumatic stress disorder, unspecified F43.10 and Major depressive disorder, recurrent, moderate F33.1 [facility] [address] [address]18- 5253 Feb, [facility] [address] 79071- 9419 Feb, [facility] [id number] [place] [address] 39578- 6662 Feb, HTN (hypertension) I10 ; Post-traumatic stress disorder, unspecified F43.10 ; Blindness and low vision H54.10 ; Obesity E66.9 ; Hyperlipidemia E78.5 ; Chronic pain G89.29 ; Glaucoma H40.9 ; Mitral valve prolapse I34.1 and Bilateral headaches R51 [facility] [id number] [place] [address] 78824- 7036 Feb, [facility] [address] 26442- 1155 Feb, Post-traumatic stress disorder, unspecified F43.10 and Major depressive disorder, recurrent, moderate F33.1 [facility] [id number] [place] [address] 16887- 7625 Feb, [facility] [id number] [place] [address] 78433- 0637 Feb, [facility] [id number] [place] [address] 91703- 8089 Jan, [facility] [id number] [place] [address] 16207- 0555 Jan, [facility] [id number] [place] [address] 21651- 5576 Jan, Obesity E66.9 ; HTN (hypertension) I10 ; Blindness and low vision H54.10 ; Major depressive disorder, recurrent, moderate F33.1 ; Glaucoma H40.9 ; Hyperlipidemia E78.5 ; Sleep apnea, obstructive G47.33 ; Chronic pain G89.29 ; Anxiety F41.9 ; Chronic tension headaches G44.229 and Cough R05 [place] [address] 243157- 9724 Jan, [address] 612399- 0014 Jan, [address] 129522- 5930 Jan, Post-traumatic stress disorder, unspecified F43.10 ; Obesity E66.9 ; Sleep apnea, obstructive G47.33 and Open-angle glaucoma of both eyes H40.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 [address] 856305- 3066 Jan, [address] 93210- 3830 Jan, Post-traumatic stress disorder, unspecified F43.10 and Major depressive disorder, recurrent, moderate F33.1 [place] [id number] [place] [address]- [address]148 Dec, [place] [id number] [place] [address] 28771- 9993 Dec, Sleep apnea, obstructive G47.33 ; Obesity E66.9 ; Hyperlipidemia E78.5 ; Glaucoma H40.9 ; Chronic pain G89.29 ; HTN (hypertension ) I10 ; Blindness and low vision H54.10 ; Anxiety F41.9 and CAD (coronary artery disease) I25.10 [place] [id number]- [address] Nov, [address] [address]222- 6277 Nov, [place] [address] [place] [address]- 3373 Nov, [facility] [id number] [place] [address] 26552- 1078 Nov, [facility] [id number] [place] [address] 78574- 5304 Nov, [facility] [address] 15557- 5469 Nov, Encounter for immunization Z23 ; Sleep apnea, obstructive G47.33 ; Obesity E66.9 ; Hyperlipidemia E78.5 ; Glaucoma H40.9 ; Chronic pain G89.29 ; Anxiety F41.9 ; Chronic tension headaches G44.229 and HTN (hypertension ) I10 [facility] [id number] [place] [address] 65076- 9955 Nov, [facility] [id number] [place] [address] 78075- 5750 Nov, [facility] [id number] [place] [address] 04263- 9670 06 Nov, 2014 Dizziness R42 [facility] [id number] [place] [address] 85174- 4707 Nov, [facility] [id number] [place] [address] 70103- 4411 29 Oct, 2014 [facility] [id number] [place] [address] 57995- 0436 28 Oct, 2014 [facility] [id number] [place] [address] 94127- 8820 Oct, [facility] [id number] [place] [address] 34994- 9994 Oct, [facility] [id number] [place] [address] 11741- 3069 17 Oct, 2014 Dizziness 780.4 ; Essential hypertension 401.9 ; Obesity 278.00 ; Hyperlipidemia 272.4 ; Chronic pain 338.29 ; Glaucoma 365.9 and Anxiety 300.00 [facility] [address] [address]- 8729 Oct, Essential hypertension 401.9 ; Hyperlipidemia 272.4 ; Glaucoma 365.9 ; Obesity 278.00 ; Chronic pain 338.29 and Allergy to insects V15.06 [facility] [address], [place] [address]- 2433 Sep, [facility] [address] 59650- 4653 Sep, [facility] [id number] [place] [address] 55793- 9495 Sep, [facility] [id number] [place] [address] 48528- 7831 Sep, [facility] [id number] [place] [address] 04735- 5719 Aug, Essential hypertension 401.9 ; Obesity 278.00 ; Hyperlipidemia 272.4 ; Glaucoma 365.9 ; Lipoma 214.9 ; Mitral valve prolapse 424.0 ; Angina at rest 413.9 ; Lymphedema 457.1 and Chronic pain 338.29 IMMUNIZATIONS No Known Immunizations SOCIAL HISTORY Never Assessed REASON FOR VISIT Pain medication for L. leg John Paul SORIANO, needs medication refills PLAN OF CARE Activity Details Follow Up keep appointments as scheduled Reason: VITAL SIGNS Height 67 in 2017-01-05 Weight 265.7 lbs 2017-01-05 Temperature 98.1 degrees Fahrenheit 2017-01-05 Heart Rate 76 bpm 2017-01-05 Respiratory Rate 20 2017-01-05 BMI 41.61 kg/m2 2017-01-05 Blood pressure systolic 126 mmHg 2017-01-05 Blood pressure diastolic 88 mmHg 2017-01-05 MEDICATIONS Medication Instructions Dosage Frequency Start Date End Date Duration Status Metoprolol Succinate ER 200 mg Orally Once a day 1 tablet 24h 90 days Active Furosemide 40 MG Orally Once a day 1 tablet 24h Active Viagra 100 mg Orally Once a day prn 1 tablet as needed Jul, 10 days Active Timolol Hemihydrate 0.5 % Ophthalmic 2 times a day 1 drop into both eyes 12h 20 Dec, 2014 Active Nitrostat 0.4 MG Sublingual every 5 minutes x 3 PRN 1 tablet 30 days Active Viagra 100 mg Orally 1 time daily as needed as directed Nov, Nov, 90 days Active Zofran ODT 4 MG Orally every 8 hrs prn 1 tablet on the tongue and allow to dissolve 10 Active Atorvastatin Calcium 40 mg Orally Once a day 1 tablet 24h Active Cartia XT 300 MG Orally Once a day 1 capsule 24h 90 days Active Topamax 100 mg Orally Twice a day 1 tablet 12h Active Hydrocodone-Acetaminophen 7.5-325 MG Orally 4 times a day 1 tablet 6h Dec, 28 days Active Gabapentin 300 MG Orally 2 times a day 1 capsule 12h Active Atorvastatin Calcium 20 MG TAKE ONE TABLET BY MOUTH ONCE DAILY 90 Active EPINEPHrine HCl 0.3 mg as directed Oct, 30 days Active Oxycodone HCl 10 mg Orally 2 times a day 1 tablet as needed 12h Dec, Jan, 30 days Active Xanax 1 MG Orally [...]
--- OUTSIDE RECORDS SUMMARY | 2018-02-04 15:17 | XMS REPORT ---
Author Author DLAJIT DAMON Organization [facility] Address [address] [place] [address] Care Team Providers Care Goal Umpire Name Role Phone MARISOL DALJIT Unavailable PROBLEMS Type Condition ICD9-CM Code VAT43-LC Code Onset Dates Condition Status SNOMED Code Problem Environmental allergies Z91.09 Active 508230464 Problem Primary insomnia F51.01 Active 2203421 Problem Arrhythmia as indication for cardiac pacemaker replacement I49.9 Active 68020985 Problem Chronic pain syndrome G89.4 Active 307765342 Problem Sleep apnea, obstructive G47.33 Active 45717324 Problem Migraine without aura and without status migrainosus, not intractable G43.009 Active 702806353 Problem Hyperlipidemia E78.5 Active 43287525 Problem Myocarditis, unspecified chronicity, 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 Active 91126356 Problem Other male erectile dysfunction N52.8 Active 238966935 Problem Morbid (severe) obesity due to excess calories E66.01 Active 858368373 Problem 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 Active 513771587 Problem Body mass index (BMI) of 40.0-44.9 in adult Z68.41 Active 767359918 Problem Blindness and low vision H54.10 Active 269800266 Problem Chronic tension headaches G44.229 Active 315507721 Problem Chronic pain G89.29 Active 02723694 Problem HTN (hypertension) I10 Active 98218798 Problem Open-angle glaucoma of both eyes H40.10X0 Active 12319484 Problem Mitral valve prolapse I34.1 Active 126046796 Problem Anxiety F41.9 Active 97529220 Problem CAD (coronary artery disease) I25.10 Active 74037619 Problem Major depressive disorder, recurrent, moderate F33.1 Active 81714246 Problem Post-traumatic stress disorder, chronic F43.12 Active 760150028 ALLERGIES No Information ENCOUNTERS Encounter Location Date Diagnosis [facility] [address] [facility] [id number] [address] May, [facility] [address] [place] [id number] [place] [address] 21636- 6477 Apr, [facility] [address] 67[address]- [address]39 27 Apr, 2017 [place] [address] 40719- 8797 13 Apr, 2017 Post-traumatic stress disorder, unspecified F43.10 ; Major depressive disorder, recurrent, moderate F33.1 and Problems related to [facility] Z65.2 [place] [address] 13246- 5280 12 Apr, 2017 [place] [address] 34285- 3195 12 Apr, 2017 Chronic pain G89.29 ; 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 ; Morbid (severe) obesity due to excess calories E66.01 ; Anxiety F41.9 and BMI 40.0-44.9, adult Z68.41 [facility] [address] [place] [id number] [place] [address] 40611 -3330 10 Apr, 2017 Sore throat J02.9 and BMI 40.0-44.9, adult Z68.41 [place] [address] [place] [id number] [place] [address] 46420- 2549 02 Apr, 2017 Left leg pain M79.605 [facility] [address] [id number] Mar, Dental examination Z01.20 [place] [address] [place] [id number] [place] [address] 59851- 3701 Mar, [facility] [place] [address] 8[address]68 [address]83 20 Mar, 2017 Cough R05 ; Viral gastroenteritis A08.4 and BMI 40.0-44.9, adult Z68.41 [place] [address] 78359- 3660 Mar, Left leg pain M79.605 [place] [address] [place] [address] 35800- 7245 Mar, Post-traumatic stress disorder, unspecified F43.10 ; Major depressive disorder, recurrent, moderate F33.1 and Problems related to [facility] Z65.2 [place] [address] [place] [id number] [place] [address] 98990- 3767 Feb, Left leg pain M79.605 [place] [address] [place] [id number] [place] [address] 96180- 9526 Feb, [place] [address] [place] [id number] [place] [address] 99047- 8856 Feb, BMI 40.0-44.9, adult Z68.41 ; Chronic pain syndrome G89.4 ; Migraine without aura and without status migrainosus, not intractable G43.009 ; Mitral valve prolapse I34.1 and 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 [place] [address] [place] [address] 41710- 0185 Feb, Post-traumatic stress disorder, chronic F43.12 ; Anxiety F41.9 ; Problems related to [facility] Z65.2 and BMI 40.0-44.9, adult Z68.41 [place] [address] [address] Feb, Post-traumatic stress disorder, unspecified F43.10 ; Major depressive disorder, recurrent, moderate F33.1 and Problems related to [facility] Z65.2 [place] [address] [place] [address] 37512- 9302 Feb, Left leg pain M79.605 [place] [address] [place] [id number] [place] [address] 18598- 1235 Jan, Post-traumatic stress disorder, unspecified F43.10 ; Major depressive disorder, recurrent, moderate F33.1 and Problems related to [facility] Z65.2 [place] [address] [place] [id number] [address] Jan, [facility] [address] [place] [address] 73557- 1799 Jan, [facility] [address] [place] [address] 49917- 7703 Jan, Anxiety F41.9 [facility] [address] [place] [address] 67979- 5515 Jan, Left leg pain M79.605 [facility] [address] [place] [address] 35815- 0966 Dec, Left leg pain M79.605 [facility] [address] [place] [address] 38501- 9302 Dec, [facility] [address] [place] [address] 24422- 8405 15 Dec, 2016 Post-traumatic stress disorder, unspecified F43.10 ; Major depressive disorder, recurrent, moderate F33.1 and Problems related to [facility] Z65.2 [facility] [address] [place] [address] 36588- 9557 31 Nov, 2016 Chronic pain G89.29 and Anxiety F41.9 [facility] [address] [place] [address] 38491- 2916 24 Nov, 2016 Chronic pain G89.29 and Anxiety F41.9 [facility] [address] [place] [address] 32908- 1620 16 Nov, 2016 Post-traumatic stress disorder, unspecified F43.10 ; Major depressive disorder, recurrent, moderate F33.1 and Problems related to [facility] Z65.2 [place] [address] [place] [address] 04363- 5764 09 Nov, 2016 Other abnormal findings in specimens from other organs, systems and tissues R89.8 ; Other male erectile dysfunction N52.8 ; Body mass index (BMI) of 40.0-44.9 in adult Z68.41 and Morbid (severe) obesity due to excess calories E66.01 [facility] [address] [place] [address] 93492- 5302 02 Nov, 2016 Post-traumatic stress disorder, unspecified F43.10 ; Major depressive disorder, recurrent, moderate F33.1 and Problems related to [facility] Z65.2 [facility] [address] [place] [address] [id number] 29 Oct, 2016 Dental examination Z01.20 [facility] [id number] [place] [address] 25894- 2487 28 Oct, 2016 [facility] [address] [place] [id number] [place] [address] 71810- 2102 Oct, Encounter for immunization Z23 [facility] [address] [place] [id number] [place] [address] 31451- 1468 Oct, Chronic pain G89.29 ; Anxiety F41.9 ; Arrhythmia as indication for cardiac pacemaker replacement I49.9 and Glaucoma H40.9 [facility] [address] [place] [address] 76765- 9503 Oct, Anxiety F41.9 ; Post-traumatic stress disorder, chronic F43.12 and Problems related to release [facility] Z65.2 [facility] [address] [place] [address] 85902- 4381 Oct, Post-traumatic stress disorder, unspecified F43.10 ; Major depressive disorder, recurrent, moderate F33.1 and Problems related to release [facility] Z65.2 [facility] [address] [place] [address] 95528- 9747 Sep, Chronic pain G89.29 and Anxiety F41.9 [facility] [address] [id number] [place] [address] 30414- 3815 Sep, Post-traumatic stress disorder, unspecified F43.10 ; Major depressive disorder, recurrent, moderate F33.1 and Problems related to [facility] Z65.2 [place] [address] [place] [address] [address] 88[address] Sep, Post-traumatic stress disorder, unspecified F43.10 ; Major depressive disorder, recurrent, moderate F33.1 and Problems related to release [facility] Z65.2 [facility] [address] [place] [address] 17464- 2872 Sep, Chronic pain G89.29 [place] [address] [place] [address] [id number] [place] [address] 85175- 6423 Aug, Dental caries, unspecified K02.9 [place] [address] [place] [address] [id number] [place] [address] 55148- 5595 Aug, Sleep apnea, obstructive G47.33 ; Obesity E66.9 ; Chronic pain G89.29 ; HTN (hypertension) I10 ; Major depressive disorder, recurrent, moderate F33.1 ; Anxiety F41.9 ; Chronic tension headaches G44.229 ; Mitral valve prolapse I34.1 ; Arrhythmia as indication for cardiac pacemaker replacement I49.9 ; Dental caries, unspecified K02.9 ; Primary insomnia F51.01 and Hyperlipidemia E78.5 [place] [address] [place] [address] 99347- 2572 Aug, Post-traumatic stress disorder, unspecified F43.10 ; Major depressive disorder, recurrent, moderate F33.1 and Problems related to [facility] Z65.2 [place] [address] [place] [address] 09512- 0063 Aug, Dental examination Z01.20 [facility] [address] [place] [id number] [place] [address] [id number] Aug, Dental examination Z01.20 [facility] [id number] [place] [address] 64113- 6033 Aug, Post-traumatic stress disorder, unspecified F43.10 ; Major depressive disorder, recurrent, moderate F33.1 and Problems related to [facility] Z65.2 [place] [address] [place] [id number] [place] [address] 32582- 4971 Aug, Chronic pain G89.29 and Primary insomnia F51.01 [place] [address] [place] [address] 87771- 9149 Jul, [place] [address] [place] [address] [id number] [place] [address] 35491- 7645 Jul, [place] [address] [place] [id number] [place] [address] 02811- 1737 Jul, Nausea R11.0 [place] [address] [place] [address] [id number] [place] [address] 24222- 1924 Jul, Arrhythmia as indication for cardiac pacemaker replacement I49.9 [place] [address] [place] [id number] [place] [address] 51580- 2268 Jul, Post-traumatic stress disorder, unspecified F43.10 ; Major depressive disorder, recurrent, moderate F33.1 and Problems related to [facility] Z65.2 [place] [address] [place] [address] [id number] [place] [address] 22990- 1419 Jul, Anxiety F41.9 [place] [address] [place] [address] [id number] [place] [address] 62756- 8146 08 Jul, 2016 Chronic pain G89.29 [place] [address] [id number] [place] [address] 40760- 4602 02 Jul, 2016 Sleep apnea, obstructive G47.33 ; Hyperlipidemia E78.5 ; Chronic pain G89.29 ; Blindness and low vision H54.10 ; Major depressive disorder, recurrent, moderate F33.1 ; Anxiety F41.9 ; Mitral valve prolapse I34.1 ; Arrhythmia as indication for cardiac pacemaker replacement I49.9 ; Primary insomnia F51.01 ; Bilateral headaches R51 and Environmental allergies Z91.09 [place] [address] [address] [id number] [place] [address] 41058- 9739 Jul, Post-traumatic stress disorder, unspecified F43.10 ; Major depressive disorder, recurrent, moderate F33.1 and Problems related to release [facility] Z65.2 [place] [address] [place] [address] [address]- 0420 June, Post-traumatic stress disorder, chronic F43.12 ; Anxiety F41.9 ; Problems related to release [facility] Z65.2 ; Sleep apnea, obstructive G47.33 and Primary insomnia F51.01 [place] [address] [place] [id number] [place] [address] 24440- 1887 June, [place] [address] [place] [address] [id number] [place] [address] 26457- 9248 June, [place] [address] [place] [address] [id number] [place] [address] 95546- 6357 June, [place] [address] [place] [address] [id number] [place] [address] 62061- 2942 June, Chronic pain G89.29 [place] [id number] [place] [address] 21097- 1485 June, Chronic pain G89.29 [place] [address] [id number] [place] [address] 24357- 6422 June, Lipoma of left lower extremity D17.24 ; Open wound T14.8 and Swelling of left lower extremity M79.89 [place] [address] [place] [id number] [place] [address] 12981- 4055 June, Post-traumatic stress disorder, unspecified F43.10 ; Major depressive disorder, recurrent, moderate F33.1 and Problems related to [facility] Z65.2 [place] [address] [place] [id number] [place] [address] 08337- 9763 May, Lipoma of left lower extremity D17.24 ; Major depressive disorder, recurrent, moderate F33.1 ; Sleep apnea, obstructive G47.33 ; Hyperlipidemia E78.5 ; Obesity E66.9 ; HTN (hypertension) I10 ; Glaucoma H40.9 ; CAD (coronary artery disease) I25.10 ; Chronic tension headaches G44.229 ; Chronic pain G89.29 ; Anxiety F41.9 ; Nausea R11.0 and Primary insomnia F51.01 [place] [address] [address]- 2376 May, [place] [address] [place] [address] [id number] [place] [address] 11379- 2495 11 May, 2016 Chronic pain G89.29 [place] [address] [place] [id number] [place] [address] 92473- 2831 07 May, 2016 [place] [id number] [place] [address] 74980- 5878 31 Apr, 2016 Post-traumatic stress disorder, unspecified F43.10 ; Major depressive disorder, recurrent, moderate F33.1 and Problems related to release [facility] Z65.2 [place] [id number] [place] [address] 61629- 7790 28 Apr, 2016 Primary insomnia F51.01 ; Post-traumatic stress disorder, chronic F43.12 and Problems related to release [facility] Z65.2 [place] [id number] [place] [address] 72715- 6578 17 Apr, 2016 Post-traumatic stress disorder, unspecified F43.10 ; Major depressive disorder, recurrent, moderate F33.1 and Problems related to release [facility] Z65.2 [address] [place] [address] 97731- 8952 16 Apr, 2016 [place] [id number] [place] [address] 08465- 8316 16 Apr, 2016 Sleep apnea, obstructive G47.33 ; Chronic pain G89.29 ; HTN (hypertension) I10 ; Mitral valve prolapse I34.1 ; Shoulder pain, left M25.512 ; Arrhythmia as indication for cardiac pacemaker replacement I49.9 ; Glaucoma H40.9 ; Bilateral headaches R51 ; Environmental allergies Z91.09 ; Primary insomnia F51.01 and Nausea R11.0 [address] [place] [address] 49080- 3279 Apr, [place] [id number] [place] [address] 93621- 4670 Apr, [place] [address] [place] [address] 65742- 5493 Apr, Post-traumatic stress disorder, unspecified F43.10 ; Major depressive disorder, recurrent, moderate F33.1 and Problems related to release [facility] Z65.2 [place] [address] [place] [address] 44410- 0767 Apr, HTN (hypertension) I10 [place] [address] [place] [id number] [place] [address] 0651 Apr, HTN (hypertension) I10 [place] [address] [place] [id number] [place] [address] 43978- 8967 Mar, Chronic pain G89.29 ; Primary insomnia F51.01 and Problems related to release [facility] Z65.2 [place] [address] [place] [id number] [place] [address] 16650- 7296 07 Mar, 2016 Post-traumatic stress disorder, unspecified F43.10 ; Major depressive disorder, recurrent, moderate F33.1 and Problems related to release [facility] Z65.2 [place] [address] [place] [address] [id number] [place] [address] 81396- 7726 Feb, Post-traumatic stress disorder, unspecified F43.10 ; Major depressive disorder, recurrent, moderate F33.1 and Problems related to release [facility] Z65.2 [place] [address] [place] [address] [id number] [place] [address] 23000- 5985 Feb, Chronic tension headaches G44.229 [place] [address] [id number] [place] [address] 02419- 8440 Feb, Sleep apnea, obstructive G47.33 ; Obesity [...] pacemaker replacement I49.9 and Primary insomnia F51.01 [facility] [address] [place] [address] 32695- 4202 17 Feb, 2016 Post-traumatic stress disorder, unspecified F43.10 and Chronic pain G89.29 [facility] [id number] [place] [address] 33246- 1937 Feb, [facility] [address] [place] [address] [id number] Feb, Dental caries K02.9 [facility] [address] [place] [id number] [place] [address] 76343- 7284 Feb, [facility] [address] [id number] [place] [address] 85050- 3863 Feb, Post-traumatic stress disorder, unspecified F43.10 ; Major depressive disorder, recurrent, moderate F33.1 and Problems related to release [facility] Z65.2 [facility] [address] [place] [address] 54644- 7657 Jan, Sleep apnea, obstructive G47.33 and Chronic pain G89.29 [facility] [address] [place] [id number] [place] [address] 54570- 6447 Jan, [facility] [id number] [place] [address] 98877- 5098 Jan, Dental examination Z01.20 [facility] [address] [place] [address] 08298- 2101 Jan, [facility] [id number] [place] [address] 96436- 5847 Jan, [facility] [address] [id number] [place] [address] 48507- 1827 Dec, Post-traumatic stress disorder, unspecified F43.10 ; Major depressive disorder, recurrent, moderate F33.1 and Problems related to [facility] Z65.2 [place] [address] [place] [id number] [address]- 1250 Dec, Encounter for immunization Z23 ; Problems related to release [facility] Z65.2 ; Sleep apnea, obstructive G47.33 and Post-traumatic stress disorder, chronic F43.12 [place] [id number] [place] [address] 29194- 9848 Dec, Sleep apnea, obstructive G47.33 ; Hyperlipidemia E78.5 ; Chronic pain G89.29 ; Glaucoma H40.9 ; HTN (hypertension) I10 ; Post-traumatic stress disorder, unspecified F43.10 ; Anxiety F41.9 ; Chronic tension headaches G44.229 ; Mitral valve prolapse I34.1 and CAD (coronary artery disease) I25.10 [place] [address] [id number] [place] [address] 10536- 8151 Dec, Post-traumatic stress disorder, unspecified F43.10 ; Major depressive disorder, recurrent, moderate F33.1 and Problems related to release [facility] Z65.2 [place] [address] [place] [id number] [place] [address] 64963- 9069 Nov, Chronic pain G89.29 [place] [id number] [place] [address] 62240- 1859 Nov, Post-traumatic stress disorder, unspecified F43.10 ; Major depressive disorder, recurrent, moderate F33.1 and Problems related to release [facility] Z65.2 [place] [address] [place] [id number] [place] [address] 83963- 4568 Oct, [place] [id number] [place] [address] 22919- 1453 Oct, [place] [id number] [place] [address] 11536- 2584 16 Oct, 2015 Post-traumatic stress disorder, unspecified F43.10 ; Major depressive disorder, recurrent, moderate F33.1 and Problems related to release [facility] Z65.2 [place] [id number] [place] [address] 90285- 3538 Oct, [facility] [address] [place] [address] 84685- 4393 07 Oct, 2015 Environmental allergies Z91.09 ; Cough R05 and Open-angle glaucoma of both eyes H40.10X0 [facility] [address] [id number] [place] [address] 59541- 3917 Sep, [facility] [address] 85158- 0248 Sep, Post-traumatic stress disorder, unspecified F43.10 ; Major depressive disorder, recurrent, moderate F33.1 and Problems related to [facility] Z65.2 [facility] [id number] [place] [address] 79731- 6752 Sep, Chronic pain G89.29 [facility] [id number] [place] [address] 52576- 6863 Sep, Pain in left shoulder M25.512 ; Pain in right shoulder M25.511 and Other chronic pain G89.29 [facility] [id number] [place] [address] 15605- 3611 Sep, [facility] [id number] [place] [address] 48713- 5066 Sep, [facility] [id number] [place] [address] 83320- 7444 Sep, [facility] [address] [place] [address] [id number] Aug, Dental examination Z01.20 [facility] [address] [place] [address] 24538- 7868 Aug, Post-traumatic stress disorder, unspecified F43.10 ; Open- angle glaucoma of both eyes H40.10X0 and Problems related to [facility] Z65.2 [facility] [address] [place] [address] 24001- 6714 Aug, [facility] [address] [place] [address]- 7551 Aug, Sleep apnea, obstructive G47.33 ; Obesity E66.9 ; Hyperlipidemia E78.5 ; Bilateral headaches R51 ; HTN (hypertension) I10 ; Post- traumatic stress disorder, unspecified F43.10 ; Anxiety F41.9 ; Neuropathy G62.9 ; Glaucoma H40.9 and Chronic pain G89.29 [facility] [address] [place] [address] [id number] Aug, Encounter for dental examination Z01.20 [facility] [address] 39203- 1614 Aug, Post-traumatic stress disorder, unspecified F43.10 ; Major depressive disorder, recurrent, moderate F33.1 and Problems related [facility] Z65.2 [facility] [id number] [place] [address] 06778- 9011 Aug, [facility] [id number] [place] [address] 65657- 4325 Jul, [facility] [id number] [place] [address] [id number] [id number] Jul, Post-traumatic stress disorder, unspecified F43.10 and Major depressive disorder, recurrent, moderate F33.1 [facility] [id number] [place] [address] [phone] Jul, [facility] [id number] [place] [address] [id number] Jul, [facility] [address] [id number] [place] [address] 14187- 0826 Jul, Chronic pain G89.29 [facility] [id number] [place] [address] 47914- 5094 June, Post-traumatic stress disorder, unspecified F43.10 and Major depressive disorder, recurrent, moderate F33.1 [facility] [id number] [place] [address] 30721- 9180 June, [facility] [id number] [place] [address] 74084- 8212 June, Chronic pain G89.29 [facility] [id number] [place] [address] 63573- 5408 June, Post-traumatic stress disorder, unspecified F43.10 and Major depressive disorder, recurrent, moderate F33.1 [facility] [id number] [place] [address] 21309- 0448 May, Post-traumatic stress disorder, unspecified F43.10 and Major depressive disorder, recurrent, moderate F33.1 [facility] [id number] [place] [address] 03433- 5806 May, [facility] [id number] [place] [address] 26525- 4845 May, [facility] [id number] [place] [address] 88197- 7608 May, [facility] [id number] [place] [address] 03428- 2363 Apr, [facility] [id number] [place] [address] 50579- 3089 Apr, Post-traumatic stress disorder, unspecified F43.10 and Sleep apnea, obstructive G47.33 [facility] [id number] [place] [address] 19108- 9187 Apr, [facility] [id number] [place] [address] 26444- 6066 Apr, Shoulder pain, left M25.512 [facility] [id number] [place] [address] 49349- 8577 Apr, Post-traumatic stress disorder, unspecified F43.10 and Major depressive disorder, recurrent, moderate F33.1 [facility] [id number] [place] [address] 67990- 2694 Apr, [facility] [address] [address] Apr, [facility] [id number] [place] [address] 41003- 6011 Apr, [facility] [address] [address] 6573 Apr, Left shoulder pain M25.512 [facility] [id number] [place] [address] 20802- 6277 Mar, [facility] [id number] [place] [address] 68265- 2153 Mar, [facility] [id number] [place] [address] 24167- 7116 Mar, [facility] [id number] [place] [address] 72671- 5762 Mar, Sleep apnea, obstructive G47.33 ; Obesity E66.9 ; Chronic pain G89.29 ; Hyperlipidemia E78.5 ; HTN (hypertension) I10 ; Blindness and low vision H54.10 ; Major depressive disorder, recurrent, moderate F33.1 and Anxiety F41.9 [place] [id number] [address]- [address] Mar, [place] [id number] [address]- 3447 Mar, Post-traumatic stress disorder, unspecified F43.10 and Major depressive disorder, recurrent, moderate F33.1 [facility] [address] [address] 8746 Mar, [facility] [id number] [place] [address] 38913- 0608 04 Mar, 2015 HTN (hypertension) I10 ; Blindness and low vision H54.10 ; Obesity E66.9 ; Hyperlipidemia E78.5 ; Glaucoma H40.9 ; Chronic pain G89.29 and CAD (coronary artery disease) I25.10 [place] [id number] [place] [address] 17866- 6258 Feb, [place] [address]- 2784 Feb, Post-traumatic stress disorder, unspecified F43.10 ; Obesity E66.9 ; Sleep apnea, obstructive G47.33 and Open-angle glaucoma of both eyes H40.10X0 [place] 110382- 1928 Feb, Post-traumatic stress disorder, unspecified F43.10 and Major depressive disorder, recurrent, moderate F33.[address] [address]- 2089 Feb, [address] 532556- 6863 Feb, [address] 619892- 5181 Feb, HTN (hypertension) I10 ; Post-traumatic stress disorder, unspecified F43.10 ; Blindness and low vision H54.10 ; Obesity E66.9 ; Hyperlipidemia E78.5 ; Chronic pain G89.29 ; Glaucoma H40.9 ; Mitral valve prolapse I34.1 and Bilateral headaches R51 [address] 03573- 8005 Feb, [address] 36647- 6143 Feb, Post-traumatic stress disorder, unspecified F43.10 and Major depressive disorder, recurrent, moderate F33.[address] 07526- 3646 Feb, [address] 59076- 6555 Feb, [address] 13948- 2935 Jan, [place] [id number] [place] [address] 43317- 9311 Jan, [place] [address] 59112- 2119 Jan, Obesity E66.9 ; HTN (hypertension) I10 ; Blindness and low vision H54.10 ; Major depressive disorder, recurrent, moderate F33.1 ; Glaucoma H40.9 ; Hyperlipidemia E78.5 ; Sleep apnea, obstructive G47.33 ; Chronic pain G89.29 ; Anxiety F41.9 ; Chronic tension headaches G44.229 and Cough R05 [place] [address] 33137- 0822 Jan, [place] [id number] [place] [address] 70864- 9017 Jan, [place] [address] 38370- 2742 Jan, Post-traumatic stress disorder, unspecified F43.10 ; Obesity E66.9 ; Sleep apnea, obstructive G47.33 and Open-angle glaucoma of both eyes H40.10X0 [place] [id number] [place] [address] 61123- 9743 Jan, [place] [id number] [place] [address] 87426- 7230 Jan, Post-traumatic stress disorder, unspecified F43.10 and Major depressive disorder, recurrent, moderate F33.1 [place] [id number] [place] [address] 89420- 9908 Dec, [place] [address] 25469- 1789 Dec, Sleep apnea, obstructive G47.33 ; Obesity E66.9 ; Hyperlipidemia E78.5 ; Glaucoma H40.9 ; Chronic pain G89.29 ; HTN (hypertension ) I10 ; Blindness and low vision H54.10 ; Anxiety F41.9 and CAD (coronary artery disease) I25.10 [facility] [id number] [place] [address] 00029- 2327 Nov, [facility] [id number] [place] [address] 03607- 3840 Nov, [facility] [id number] [place] [address] 87478- 0340 Nov, [facility] [address] 93374- 6212 Nov, [facility] [id number] [place] [address] 52902- 4514 Nov, [facility] [address] 50019- 7146 Nov, Encounter for immunization Z23 ; Sleep apnea, obstructive G47.33 ; Obesity E66.9 ; Hyperlipidemia E78.5 ; Glaucoma H40.9 ; Chronic pain G89.29 ; Anxiety F41.9 ; Chronic tension headaches G44.229 and HTN (hypertension ) I10 [facility] [id number] [place] [address] 26505- 4375 Nov, [facility] [id number] [place] [address] 41423- 2613 Nov, [facility] [id number] [place] [address] 56490- 8983 Nov, Dizziness R42 [facility] [id number] [place] [address] 94705- 6619 Nov, [facility] [id number] [place] [address] 47368- 2899 Oct, [facility] [id number] [place] [address] 28536- 4144 Oct, [facility] [id number] [place] [address] 85734- 9814 Oct, [facility] [address] 22892- 6173 Oct, [place] [id number] [place] [address] 15040- 7078 Oct, Dizziness 780.4 ; Essential hypertension 401.9 ; Obesity 278.00 ; Hyperlipidemia 272.4 ; Chronic pain 338.29 ; Glaucoma 365.9 and Anxiety 300.00 [place] [id number] [place] [address] 74355- 1040 Oct, Essential hypertension 401.9 ; Hyperlipidemia 272.4 ; Glaucoma 365.9 ; Obesity 278.00 ; Chronic pain 338.29 and Allergy to insects V15.06 [place] [id number] [place] [address] 64425- 0036 Sep, [place] [id number] [place] [address] 51542- 5769 Sep, [place] [address] 02390- 4096 Sep, [place] [id number] [place] [address] 40891- 3854 Sep, [place] [id number] [place] [address] 10365- 9928 Aug, Essential hypertension 401.9 ; Obesity 278.00 ; Hyperlipidemia 272.4 ; Glaucoma 365.9 ; Lipoma 214.9 ; Mitral valve prolapse 424.0 ; Angina at rest 413.9 ; Lymphedema 457.1 and Chronic pain 338.29 IMMUNIZATIONS No Known Immunizations SOCIAL HISTORY Never Assessed REASON FOR VISIT f/nafisa Roche RN PLAN OF CARE Activity Details Follow Up 4 Months Reason: VITAL SIGNS Height 67 in 2016-07-02 Weight 271.6 lbs 2016-07-02 Heart Rate 80 bpm 2016-07-02 Respiratory Rate 20 2016-07-02 BMI 42.53 kg/m2 2016-07-02 Blood pressure systolic 126 mmHg 2016-07-02 Blood pressure diastolic 70 mmHg 2016-07-02 MEDICATIONS Medication Instructions Dosage Frequency Start Date End Date Duration Status EPINEPHrine HCl 0.3 mg as directed Oct, Active Cardizem CD 300 MG Orally Once a day 1 capsule 24h Active Timolol Hemihydrate 0.5 % Ophthalmic 2 times a day 1 drop into both eyes 12h 20 Dec, 2014 Active Topamax 100 mg Orally Twice a day 1 tablet 12h Active Atorvastatin Calcium 40 mg Orally Once a day 1 tablet 24h Active Xanax 1 MG Orally Twice a day for anxiety 1 tablet Active Cartia XT 300 MG Orally Once a day 1 capsule 24h 25 Jun, 2016 30 day(s ) Active Nitrostat 0.4 MG Sublingual every 5 minutes x 3 PRN 1 tablet Active Hydrocodone-Acetaminophen 7.5-325 MG Orally 4 times a day 1 tablet as needed 6h June, 28 days Active Metoprolol Succinate ER 200 mg Orally Once a day 1 tablet 24h Active Gabapentin 300 MG TAKE ONE CAPSULE BY MOUTH TWICE DAILY 90 Active Zofran ODT 4 MG Orally every 8 hrs 1 tablet on the tongue and allow to dissolve 8h Apr, Active Zolpidem Tartrate 10 mg Orally Once a day ONE-HALF TO ONE TABLET 24h Active Furosemide 40 MG TAKE ONE TABLET [...]
--- OUTSIDE RECORDS SUMMARY | 2018-02-04 15:17 | XMS REPORT ---
Author Author DALJIT DAMON Organization [facility] Address [address] [place] [address] Care Team Providers Care Regional Guide Name Role Phone DALJIT DAMON Unavailable PROBLEMS Type Condition ICD9-CM Code UEE90-JU Code Onset Dates Condition Status SNOMED Code Problem CAD (coronary artery disease) I25.10 Active 99258698 Problem Encounter for dental examination Z01.20 Active 012343155 Problem Shoulder pain, left M25.512 Active 56893688 Problem Post-traumatic stress disorder, unspecified F43.10 Active 56655366 Problem Obesity E66.9 Active 232655414 Problem Arrhythmia as indication for cardiac pacemaker replacement I49.9 Active 76327369 Problem Hyperlipidemia E78.5 Active 04328042 Problem Glaucoma H40.9 Active 66485270 Problem Post-traumatic stress disorder, chronic F43.12 Active 988155118 Problem Bilateral headaches R51 Active 661889248 Problem Primary insomnia F51.01 Active 2329638 Problem Environmental allergies Z91.09 Active 869832115 Problem 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 Active 573840668 Problem HTN (hypertension) I10 Active 16712875 Problem Sleep apnea, obstructive G47.33 Active 60339321 Problem Problems related to release from long-term Z65.2 Active 22701580 Problem Anxiety F41.9 Active 15430957 Problem Major depressive disorder, recurrent, moderate F33.1 Active 87120404 Problem Cough R05 Active 07672515 Problem Open-angle glaucoma of both eyes H40.10X0 Active 75817730 Problem Chronic pain G89.29 Active 58100644 Problem Chronic tension headaches G44.229 Active 964476707 Problem Mitral valve prolapse I34.1 Active 108894324 ALLERGIES Unknown Allergies SOCIAL HISTORY No smoking Hx information available PLAN OF CARE VITAL SIGNS MEDICATIONS Medication Instructions Dosage Frequency Start Date End Date Duration Status Xanax 1 MG Orally for anxiety 1/2 tab in AM and 1 tab at bedtime Feb, Active RESULTS No Results PROCEDURES No Known procedures IMMUNIZATIONS No Known Immunizations
--- OUTSIDE RECORDS SUMMARY | 2018-02-04 15:18 | XMS REPORT ---
Author Author CJ EDGE [facility] Address [address] [place] [address] Care Team Providers Care Derrick Worker Name Role Phone CJ EDGE Unavailable PROBLEMS Type Condition ICD9-CM Code UMV85-UZ Code Onset Dates Condition Status SNOMED Code Problem CAD (coronary artery disease) I25.10 Active 71703873 Problem Encounter for dental examination Z01.20 Active 961921417 Problem Shoulder pain, left M25.512 Active 14239279 Problem Post-traumatic stress disorder, unspecified F43.10 Active 06150163 Problem Hyperlipidemia E78.5 Active 74331907 Problem Primary insomnia F51.01 Active 5573842 Problem Obesity E66.9 Active 087732363 Problem Chronic pain G89.29 Active 81859273 Problem Post-traumatic stress disorder, chronic F43.12 Active 741856116 Problem Bilateral headaches R51 Active 048192834 Problem Arrhythmia as indication for cardiac pacemaker replacement I49.9 Active 07375303 Problem Environmental allergies Z91.09 Active 181511900 Problem 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 Active 230909945 Problem HTN (hypertension) I10 Active 92421476 Problem Glaucoma H40.9 Active 05561445 Problem Problems related to release from detention Z65.2 Active 92260468 Problem Anxiety F41.9 Active 12268560 Problem Major depressive disorder, recurrent, moderate F33.1 Active 98866006 Problem Chronic tension headaches G44.229 Active 051177194 Problem Open-angle glaucoma of both eyes H40.10X0 Active 91454363 Problem Sleep apnea, obstructive G47.33 Active 09320538 Problem Cough R05 Active 80390598 Problem Mitral valve prolapse I34.1 Active 143357818 ALLERGIES No Information SOCIAL HISTORY Never Assessed PLAN OF CARE Activity Details Follow Up 2 Weeks Reason: VITAL SIGNS MEDICATIONS Unknown Medications RESULTS No Results PROCEDURES Procedure Date Ordered Result Body Site Psychotherapy, patient &/family, 45 minutes, established patient April 24, 2016 IMMUNIZATIONS No Known Immunizations MEDICAL (GENERAL) [...]
--- OUTSIDE RECORDS SUMMARY | 2018-02-04 15:18 | XMS REPORT ---
Author Author ADAM CANALES [facility] Address Unknown Care Team Providers Care Sports Specialist Name Role Phone ADAM CANALES Unavailable PROBLEMS Type Condition ICD9-CM Code TDZ86-XF Code Onset Dates Condition Status SNOMED Code Problem Environmental allergies Z91.09 Active 304333715 Problem Primary insomnia F51.01 Active 8128215 Problem Arrhythmia as indication for cardiac pacemaker replacement I49.9 Active 94357439 Problem Chronic pain syndrome G89.4 Active 870881248 Problem Sleep apnea, obstructive G47.33 Active 93586413 Problem Migraine without aura and without status migrainosus, not intractable G43.009 Active 137654459 Problem Hyperlipidemia E78.5 Active 05079773 Problem Myocarditis, unspecified chronicity, 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 Active 33233828 Problem Other male erectile dysfunction N52.8 Active 684559824 Problem Morbid (severe) obesity due to excess calories E66.01 Active 021382157 Problem 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 Active 202262649 Problem Body mass index (BMI) of 40.0-44.9 in adult Z68.41 Active 803656498 Problem Blindness and low vision H54.10 Active 045279406 Problem Chronic tension headaches G44.229 Active 222886972 Problem Chronic pain G89.29 Active 38813511 Problem HTN (hypertension) I10 Active 32359792 Problem Open-angle glaucoma of both eyes H40.10X0 Active 61549447 Problem Mitral valve prolapse I34.1 Active 379062814 Problem Anxiety F41.9 Active 05481055 Problem CAD (coronary artery disease) I25.10 Active 35191865 Problem Major depressive disorder, recurrent, moderate F33.1 Active 03522996 Problem Post-traumatic stress disorder, chronic F43.12 Active 913352844 ALLERGIES Substance Reaction Event Type Date Status Xalatan upper lid irritation Drug Allergy Aug, Active Penicillin G Potassium rash Drug Allergy Aug, Active Aspirin nausea and vomiting Drug Allergy Aug, Active bandaides blisters Non Drug Allergy Aug, Active Wasp venom anaphylaxis Non Drug Allergy Aug, Active ENCOUNTERS Encounter Location Date Diagnosis [place] [id number] [place] [address] 51758- 3339 Jul, [place] [id number] [place] [address] 07754- 5073 May, [place] [address] 64252- 6114 May, Chronic pain G89.29 ; Anxiety F41.9 and Chest pain, unspecified type R07.9 [place] [address] 78932- 1386 Apr, [place] [address] 26952- 0189 Apr, Left leg pain M79.605 [place] [address] 01060- 0922 Apr, Post-traumatic stress disorder, unspecified F43.10 ; Problems related to release from half-way Z65.2 ; Anxiety F41.9 and BMI 40.0-44.9 , adult Z68.41 [place] [id number] [place] [address] 65870- 8521 Apr, [place] [id number] [place] [address] 68362- 2442 Apr, Left leg pain M79.605 [place] [id number] [place] [address] 65140- 9958 Apr, Post-traumatic stress disorder, unspecified F43.10 ; Major depressive disorder, recurrent, moderate F33.1 and Problems related to release from half-way Z65.2 [place] [id number] [place] [address] 86289- 8277 Apr, [place] [id number] [place] [address] 94252- 8721 Apr, Chronic pain G89.29 ; 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 ; Morbid (severe) obesity due to excess calories E66.01 ; Anxiety F41.9 and BMI 40.0-44.9, adult Z68.41 [facility] [id number] [place] [address] 72275 -9897 Apr, Sore throat J02.9 and BMI 40.0-44.9, adult Z68.41 [facility] [address] 97551- 3578 02 Apr, 2017 Left leg pain M79.605 [facility] [address] [id number] 28 Mar, 2017 Dental examination Z01.20 [place] [address] 15825- 8962 23 Mar, 2017 [facility] [address] 96754 -1937 Mar, Cough R05 ; Viral gastroenteritis A08.4 and BMI 40.0-44.9, adult Z68.41 [place] [address] 19625- 1753 Mar, Left leg pain M79.605 [facility] [id number] [place] [address] 72224- 2316 06 Mar, 2017 Post-traumatic stress disorder, unspecified F43.10 ; Major depressive disorder, recurrent, moderate F33.1 and Problems related to release from half-way Z65.2 [place] [id number] [place] [address] 27589- 3965 Feb, Left leg pain M79.605 [place] [address] 76373- 5349 Feb, [place] [address] 53958- 1316 Feb, BMI 40.0-44.9, adult Z68.41 ; Chronic pain syndrome G89.4 ; Migraine without aura and without status migrainosus, not intractable G43.009 ; Mitral valve prolapse I34.1 and 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 [place] [address] 85676- 3266 Feb, Post-traumatic stress disorder, chronic F43.12 ; Anxiety F41.9 ; Problems related to release from half-way Z65.2 and BMI 40.0-44.9, adult Z68.41 [place] [address] 60830- 9612 Feb, Post-traumatic stress disorder, unspecified F43.10 ; Major depressive disorder, recurrent, moderate F33.1 and Problems related to release from half-way Z65.2 [place] [address] 94195- 6814 Feb, Left leg pain M79.605 [place] [address] 28150- 1617 Jan, Post-traumatic stress disorder, unspecified F43.10 ; Major depressive disorder, recurrent, moderate F33.1 and Problems related to release from half-way Z65.2 [place] [address] 32968- 4181 Jan, [place] [address] 93913- 7823 Jan, [place] [address] 59498- 7299 Jan, Anxiety F41.9 [place] [id number] [place] [address] 64446- 8025 Jan, Left leg pain M79.605 [place] [address] 53969- 1472 Dec, Left leg pain M79.605 [place] [address] 84586- 8064 Dec, [place] [address] [address] 5542 15 Dec, 2016 Post-traumatic stress disorder, unspecified F43.10 ; Major depressive disorder, recurrent, moderate F33.1 and Problems related to release from half-way Z65.2 [facility] [id number] [place] [address] 19491- 6741 31 Nov, 2016 Chronic pain G89.29 and Anxiety F41.9 [place] [id number] [place] [address] 77156- 3991 24 Nov, 2016 Chronic pain G89.29 and Anxiety F41.9 [place] [address] 45281- 5993 16 Nov, 2016 Post-traumatic stress disorder, unspecified F43.10 ; Major depressive disorder, recurrent, moderate F33.1 and Problems related to release from half-way Z65.2 [place] [id number] [place] [address] 73279- 5117 09 Nov, 2016 Other abnormal findings in specimens from other organs, systems and tissues R89.8 ; Other male erectile dysfunction N52.8 ; Body mass index (BMI) of 40.0-44.9 in adult Z68.41 and Morbid (severe) obesity due to excess calories E66.01 [place] [id number] [place] [address] 02645- 1163 02 Nov, 2016 Post-traumatic stress disorder, unspecified F43.10 ; Major depressive disorder, recurrent, moderate F33.1 and Problems related to release from half-way Z65.2 [facility] [id number] [place] [address] [id number] Oct, Dental examination Z01.20 [place] [id number] [place] [address] 31655- 0253 Oct, [place] [id number] [place] [address] 56354- 5788 Oct, Encounter for immunization Z23 [place] [id number] [place] [address] 81590- 8075 Oct, Chronic pain G89.29 ; Anxiety F41.9 ; Arrhythmia as indication for cardiac pacemaker replacement I49.9 and Glaucoma H40.9 [place] [address] [place] [address] 52637- 2398 Oct, Anxiety F41.9 ; Post-traumatic stress disorder, chronic F43.12 and Problems related to release from half-way Z65.2 [place] [id number] [place] [address] 94095- 5796 Oct, Post-traumatic stress disorder, unspecified F43.10 ; Major depressive disorder, recurrent, moderate F33.1 and Problems related to release from half-way Z65.2 [place] [id number] [place] [address] 87195- 3600 Sep, Chronic pain G89.29 and Anxiety F41.9 [place] [id number] [place] [address] 33364- 8027 Sep, Post-traumatic stress disorder, unspecified F43.10 ; Major depressive disorder, recurrent, moderate F33.1 and Problems related to release from half-way Z65.2 [place] [id number] [place] [address] 64625- 4729 Sep, Post-traumatic stress disorder, unspecified F43.10 ; Major depressive disorder, recurrent, moderate F33.1 and Problems related to release from half-way Z65.2 [place] [address] [place] [address] 69671- 1668 Sep, Chronic pain G89.29 [place] [id number] [place] [address] 69629- 4295 Aug, Dental caries, unspecified K02.9 [address] [place] [address] 25892- 8910 Aug, Sleep apnea, obstructive G47.33 ; Obesity E66.9 ; Chronic pain G89.29 ; HTN (hypertension) I10 ; Major depressive disorder, recurrent, moderate F33.1 ; Anxiety F41.9 ; Chronic tension headaches G44.229 ; Mitral valve prolapse I34.1 ; Arrhythmia as indication for cardiac pacemaker replacement I49.9 ; Dental caries, unspecified K02.9 ; Primary insomnia F51.01 and Hyperlipidemia E78.5 [facility] [address] [address]- 3722 Aug, Post-traumatic stress disorder, unspecified F43.10 ; Major depressive disorder, recurrent, moderate F33.1 and Problems related to release from half-way Z65.2 [facility] [id number] [place] [address] 45234- 5518 Aug, Dental examination Z01.20 [facility] [id number] [place] [address] [id number] Aug, Dental examination Z01.20 [facility] [id number] [place] [address] 75092- 5033 Aug, Post-traumatic stress disorder, unspecified F43.10 ; Major depressive disorder, recurrent, moderate F33.1 and Problems related to release from half-way Z65.2 [facility] [id number] [place] [address] 57320- 8327 Aug, Chronic pain G89.29 and Primary insomnia F51.01 [facility] [id number] [place] [address] 04059- 4718 Jul, [facility] [id number] [place] [address] 38851- 2091 Jul, [facility] [id number] [place] [address] 65933- 2248 Jul, Nausea R11.0 [facility] [id number] [place] [address] 64819- 1561 Jul, Arrhythmia as indication for cardiac pacemaker replacement I49.9 [facility] [id number] [place] [address] 69923- 5133 Jul, Post-traumatic stress disorder, unspecified F43.10 ; Major depressive disorder, recurrent, moderate F33.1 and Problems related to release from half-way Z65.2 [place] [address] [place] [address] 21971- 6587 09 Jul, 2016 Anxiety F41.9 [place] [id number] [place] [address] 19342- 3177 08 Jul, 2016 Chronic pain G89.29 [place] [id number] [place] [address] 59016- 0247 Jul, Sleep apnea, obstructive G47.33 ; Hyperlipidemia E78.5 ; Chronic pain G89.29 ; Blindness and low vision H54.10 ; Major depressive disorder, recurrent, moderate F33.1 ; Anxiety F41.9 ; Mitral valve prolapse I34.1 ; Arrhythmia as indication for cardiac pacemaker replacement I49.9 ; Primary insomnia F51.01 ; Bilateral headaches R51 and Environmental allergies Z91.09 [place] [id number] [place] [address] 81542- 5380 Jul, Post-traumatic stress disorder, unspecified F43.10 ; Major depressive disorder, recurrent, moderate F33.1 and Problems related to release from half-way Z65.2 [place] [id number] [place] [address] 02580- 1186 June, Post-traumatic stress disorder, chronic F43.12 ; Anxiety F41.9 ; Problems related to release from half-way Z65.2 ; Sleep apnea, obstructive G47.33 and Primary insomnia F51.01 [place] [address] [place] [address] 28198- 8005 June, [place] [id number] [place] [address] 88817- 8144 June, [place] [id number] [place] [address] 81819- 5632 June, [place] [id number] [place] [address] 26312- 8200 June, Chronic pain G89.29 [address] [place] [address] 32399- 5503 June, Chronic pain G89.29 [place] [id number] [place] [address] 42556- 4005 June, Lipoma of left lower extremity D17.24 ; Open wound T14.8 and Swelling of left lower extremity M79.[address] 45004- 8912 June, Post-traumatic stress disorder, unspecified F43.10 ; Major depressive disorder, recurrent, moderate F33.1 and Problems related to release from half-way Z65.[address] 34196- 5283 May, Lipoma of left lower extremity D17.24 ; Major depressive disorder, recurrent, moderate F33.1 ; Sleep apnea, obstructive G47.33 ; Hyperlipidemia E78.5 ; Obesity E66.9 ; HTN (hypertension) I10 ; Glaucoma H40.9 ; CAD (coronary artery disease) I25.10 ; Chronic tension headaches G44.229 ; Chronic pain G89.29 ; Anxiety F41.9 ; Nausea R11.0 and Primary insomnia F51.01 [place] [id number] [place] [address] 60542- 6352 May, [place] [id number] [place] [address] 86663- 2112 May, Chronic pain G89.29 [place] [id number] [place] [address] 35918- 0858 May, [place] [id number] [place] [address] 89834- 6165 Apr, Post-traumatic stress disorder, unspecified F43.10 ; Major depressive disorder, recurrent, moderate F33.1 and Problems related to release from half-way Z65.2 [place] [address] [place] [address] 61691- 8885 Apr, Primary insomnia F51.01 ; Post-traumatic stress disorder, chronic F43.12 and Problems related to release from half-way Z65.2 [place] [id number] [place] [address] 38765- 7398 17 Apr, 2016 Post-traumatic stress disorder, unspecified F43.10 ; Major depressive disorder, recurrent, moderate F33.1 and Problems related to release from half-way Z65.2 [place] [id number] [place] [address] 07115- 0722 16 Apr, 2016 [place] [id number] [place] [address] 45662- 6780 16 Apr, 2016 Sleep apnea, obstructive G47.33 ; Chronic pain G89.29 ; HTN (hypertension) I10 ; Mitral valve prolapse I34.1 ; Shoulder pain, left M25.512 ; Arrhythmia as indication for cardiac pacemaker replacement I49.9 ; Glaucoma H40.9 ; Bilateral headaches R51 ; Environmental allergies Z91.09 ; Primary insomnia F51.01 and Nausea R11.0 [place] [id number] [place] [address] 26607- 9800 15 Apr, 2016 [place] [id number] [place] [address] 27307- 2814 Apr, [place] [id number] [place] [address] 61758- 6376 Apr, Post-traumatic stress disorder, unspecified F43.10 ; Major depressive disorder, recurrent, moderate F33.1 and Problems related to release from half-way Z65.2 [place] [id number] [place] [address] 44129- 7099 Apr, HTN (hypertension) I10 [place] [id number] [place] [address] 06945- 9121 Apr, HTN (hypertension) I10 [place] [id number] [place] [address] 16520- 0599 14 Mar, 2016 Chronic pain G89.29 ; Primary insomnia F51.01 and Problems related to release from half-way Z65.2 [place] [address], [place] [address]- 7026 07 Mar, 2016 Post-traumatic stress disorder, unspecified F43.10 ; Major depressive disorder, recurrent, moderate F33.1 and Problems related to release from half-way Z65.2 [place] [address], [place] [address]- 1931 Feb, Post-traumatic stress disorder, unspecified F43.10 ; Major depressive disorder, recurrent, moderate F33.1 and Problems related to release from half-way Z65.2 [place] [id number] [place] [address] 55320- 3602 Feb, Chronic tension headaches G44.229 [place] [id number] [place] [address] 69998- 8590 Feb, Sleep apnea, obstructive G47.33 ; Obesity [...] pacemaker replacement I49.9 and Primary insomnia F51.01 [place] [address], [place] [address]- 6804 Feb, Post-traumatic stress disorder, unspecified F43.10 and Chronic pain G89.29 [place] [address], [place] [address]- 9278 Feb, [facility] [address] [place] [address] [id number] Feb, Dental caries K02.9 [place] [address], [place] [address]- 6168 Feb, [place] [id number] [place] [address] 79577- 2034 Feb, Post-traumatic stress disorder, unspecified F43.10 ; Major depressive disorder, recurrent, moderate F33.1 and Problems related to release from half-way Z65.2 [place] [id number] [place] [address] 18190- 3908 Jan, Sleep apnea, obstructive G47.33 and Chronic pain G89.29 [place] [id number] [place] [address] 06831- 5464 Jan, [address] 57746- 8555 Jan, Dental examination Z01.[address] 08935- 2639 Jan, [address] 47126- 6737 Jan, [address] 81673- 8555 Dec, Post-traumatic stress disorder, unspecified F43.10 ; Major depressive disorder, recurrent, moderate F33.1 and Problems related to release from half-way Z65.2 [place] [id number] [place] [address] 03289- 7008 Dec, Encounter for immunization Z23 ; Problems related to release from half-way Z65.2 ; Sleep apnea, obstructive G47.33 and Post-traumatic stress disorder, chronic F43.12 [place] [id number] [place] [address] 07666- 1053 Dec, Sleep apnea, obstructive G47.33 ; Hyperlipidemia E78.5 ; Chronic pain G89.29 ; Glaucoma H40.9 ; HTN (hypertension) I10 ; Post-traumatic stress disorder, unspecified F43.10 ; Anxiety F41.9 ; Chronic tension headaches G44.229 ; Mitral valve prolapse I34.1 and CAD (coronary artery disease) I25.10 [place] [id number] [place] [address] 30603- 3914 15 Dec, 2015 Post-traumatic stress disorder, unspecified F43.10 ; Major depressive disorder, recurrent, moderate F33.1 and Problems related to release from half-way Z65.2 [facility] [address] [place] [address] 42910- 7735 Nov, Chronic pain G89.29 [facility] [address], [place] [address]- 8575 Nov, Post-traumatic stress disorder, unspecified F43.10 ; Major depressive disorder, recurrent, moderate F33.1 and Problems related to release from half-way Z65.2 [facility] [address], [place] [address]- 7478 Oct, [facility] [id number] [place] [address] 770848- 8311 Oct, [place] [address] [place] [address] 93210- 8236 Oct, Post-traumatic stress disorder, unspecified F43.10 ; Major depressive disorder, recurrent, moderate F33.1 and Problems related to release from half-way Z65.2 [facility] [address] [place] [address] 98329- 4172 08 Oct, 2015 [facility] [address], [place] [address]- 2792 07 Oct, 2015 Environmental allergies Z91.09 ; Cough R05 and Open-angle glaucoma of both eyes H40.10X0 [facility] [address] [place] [address] 19934- 3441 Sep, [facility] [address], [place] [address]- 4453 Sep, Post-traumatic stress disorder, unspecified F43.10 ; Major depressive disorder, recurrent, moderate F33.1 and Problems related to release from half-way Z65.2 [facility] [address], [place] [address]- 6882 Sep, Chronic pain G89.29 [facility] [address] [address]- 0642 Sep, Pain in left shoulder M25.512 ; Pain in right shoulder M25.511 and Other chronic pain G89.29 [place] [id number] [place] [address] 89772- 1962 Sep, [place] [id number] [place] [address] 53361- 0942 Sep, [place] [id number] [place] [address] 02181- 2335 Sep, [facility] [id number] [place] [address] [id number] Aug, Dental examination Z01.20 [place] [id number] [place] [address] 73940- 0778 Aug, Post-traumatic stress disorder, unspecified F43.10 ; Open- angle glaucoma of both eyes H40.10X0 and Problems related to release from half-way Z65.2 [place] [id number] [place] [address] 94001- 3549 Aug, [place] [id number] [place] [address] 36241- 4077 Aug, Sleep apnea, obstructive G47.33 ; Obesity E66.9 ; Hyperlipidemia E78.5 ; Bilateral headaches R51 ; HTN (hypertension) I10 ; Post- traumatic stress disorder, unspecified F43.10 ; Anxiety F41.9 ; Neuropathy G62.9 ; Glaucoma H40.9 and Chronic pain G89.29 [facility] [id number] [place] [address] [id number] Aug, Encounter for dental examination Z01.20 [place] [id number] [place] [address] 25069- 0930 Aug, Post-traumatic stress disorder, unspecified F43.10 ; Major depressive disorder, recurrent, moderate F33.1 and Problems related to release from half-way Z65.2 [place] [address] [place] [address]- 0427 Aug, [facility] [address], [place] [address]- 5330 Jul, [facility] [id number] [place] [address] 24527- 1377 Jul, Post-traumatic stress disorder, unspecified F43.10 and Major depressive disorder, recurrent, moderate F33.1 [facility] [id number] [place] [address] 76313- 3887 Jul, [facility] [id number] [place] [address] 22486- 2355 Jul, [facility] [id number] [place] [address] 39838- 0792 Jul, Chronic pain G89.29 [facility] [id number] [place] [address] 08456- 5098 June, Post-traumatic stress disorder, unspecified F43.10 and Major depressive disorder, recurrent, moderate F33.1 [facility] [address], [place] [address]- 4757 June, [facility] [address] [place] [id number] [place] [address]99- 3657 June, Chronic pain G89.29 [facility] [address], [place] [address] June, Post-traumatic stress disorder, unspecified F43.10 and Major depressive disorder, recurrent, moderate F33.1 [facility] [address], [place] [address] May, Post-traumatic stress disorder, unspecified F43.10 and Major depressive disorder, recurrent, moderate F33.1 [facility] [address], [place] [address] May, [facility] [id number] [place] [address] 42547- 2384 May, [facility] [address], [place] [address] May, [facility] [address] [place] [id number] [place] [address] 76677- 1336 Apr, [facility] [address] [place] [id number] [place] [address] 20894- 8974 Apr, Post-traumatic stress disorder, unspecified F43.10 and Sleep apnea, obstructive G47.33 [facility] [address] [place] [id number] [place] [address] 18025- 2788 Apr, [facility] [address] [place] [id number] [place] [address] 64854- 8556 Apr, Shoulder pain, left M25.512 [facility] [address] [id number] [place] [address] 29233- 8206 Apr, Post-traumatic stress disorder, unspecified F43.10 and Major depressive disorder, recurrent, moderate F33.1 [facility] [address], [place] [address] Apr, [facility] [address] [place] [id number] [place] [address] 43874- 5595 Apr, [facility] [address], [place] [address] 8[address] Apr, [facility] [address] [place] [id number] [place] [address] 87905- 9149 Apr, Left shoulder pain M25.512 [facility] [id number], [place] [address] 115[address] Mar, [facility] [address] [place] [id number] [place] [address] 803730- 2974 Mar, [facility] [address], [place] [address] Mar, [facility] [address] [place] [id number] [place] [address] 29572- 6403 Mar, Sleep apnea, obstructive G47.33 ; Obesity E66.9 ; Chronic pain G89.29 ; Hyperlipidemia E78.5 ; HTN (hypertension) I10 ; Blindness and low vision H54.10 ; Major depressive disorder, recurrent, moderate F33.1 and Anxiety F41.9 [place] [address] [place] [id number] [place] [address] 05130- 3370 Mar, [place] [address] [address]- [address] Mar, Post-traumatic stress disorder, unspecified F43.10 and Major depressive disorder, recurrent, moderate F33.1 [place] [address] [address]- 0529 Mar, [address] [address]- [address]80 Mar, HTN (hypertension) I10 ; Blindness and low vision H54.10 ; Obesity E66.9 ; Hyperlipidemia E78.5 ; Glaucoma H40.9 ; Chronic pain G89.29 and CAD (coronary artery disease) I25.10 [facility] [address] [place] [id number] [place] [address] 92965- 5459 Feb, [place] [address] [place] [id number] [place] [address] 77300- 9192 Feb, Post-traumatic stress disorder, unspecified F43.10 ; Obesity E66.9 ; Sleep apnea, obstructive G47.33 and Open-angle glaucoma of both eyes H40.10X0 [place] [id number] [place] [address] 47827- 2625 Feb, Post-traumatic stress disorder, unspecified F43.10 and Major depressive disorder, recurrent, moderate F33.1 [place] [address] [place] [id number] [place] [address] 36933- 8887 Feb, [place] [address] [place] [id number]- 2546 Feb, [place] [address] [place] [id number] [place] [address] 90423- 4946 Feb, HTN (hypertension) I10 ; Post-traumatic stress disorder, unspecified F43.10 ; Blindness and low vision H54.10 ; Obesity E66.9 ; Hyperlipidemia E78.5 ; Chronic pain G89.29 ; Glaucoma H40.9 ; Mitral valve prolapse I34.1 and Bilateral headaches R51 [place] [address] 7[address]94- 8670 Feb, [place] [address] 10715- 5642 Feb, Post-traumatic stress disorder, unspecified F43.10 and Major depressive disorder, recurrent, moderate F33.1 [place] [id number] [place] [address] 51575- 2706 Feb, [place] [address] [place] [id number] [place] [address] 19850- 2754 Feb, [place] [address] [place] [id number] [place] [address] 68462- 4406 Jan, [place] [address] [place] [id number] [place] [address] 93099- 1464 Jan, [place] [address] [place] [id number] [place] [address] 40402- 9903 Jan, Obesity E66.9 ; HTN (hypertension) I10 ; Blindness and low vision H54.10 ; Major depressive disorder, recurrent, moderate F33.1 ; Glaucoma H40.9 ; Hyperlipidemia E78.5 ; Sleep apnea, obstructive G47.33 ; Chronic pain G89.29 ; Anxiety F41.9 ; Chronic tension headaches G44.229 and Cough R05 [place] [address] [place] [id number] [place] [address] 51254- 9818 16 Jan, 2015 [place] [address] [place] [id number] [place] [address] 99866- 5387 Jan, [place] [address] [place] [id number] [place] [address] 48361- 6675 Jan, Post-traumatic stress disorder, unspecified F43.10 ; Obesity E66.9 ; Sleep apnea, obstructive G47.33 and Open-angle glaucoma of both eyes H40.10X0 [place] [address] [place] [id number] [place] [address] 08261- 6552 Jan, [place] [address] [place] 982039- 1509 Jan, Post-traumatic stress disorder, unspecified F43.10 and Major depressive disorder, recurrent, moderate F33.[address] [address]- [address] Dec, [place] [address] 45506- 6469 Dec, Sleep apnea, obstructive G47.33 ; Obesity E66.9 ; Hyperlipidemia E78.5 ; Glaucoma H40.9 ; Chronic pain G89.29 ; HTN (hypertension ) I10 ; Blindness and low vision H54.10 ; Anxiety F41.9 and CAD (coronary artery disease) I25.10 [place] [address] [place] [id number] [place] [address] 23906- 4935 Nov, [place] [address] [place] [id number] [place] [address] 58211- 5613 Nov, [place] [address] 98540- 3268 Nov, [place] [address] 23373- 2748 Nov, [place] [address] 43656- 1428 Nov, [place] [address] 66635- 3275 Nov, Encounter for immunization Z23 ; Sleep apnea, obstructive G47.33 ; Obesity E66.9 ; Hyperlipidemia E78.5 ; Glaucoma H40.9 ; Chronic pain G89.29 ; Anxiety F41.9 ; Chronic tension headaches G44.229 and HTN (hypertension ) I10 [facility] [address] [place] [id number] [place] [address] 35905- 9963 Nov, [facility] [address] 43013- 0410 Nov, [facility] [address] 27500- 4935 Nov, Dizziness R42 [facility] [address] 23717- 3386 Nov, [facility] [address] 98411- 1164 Oct, [facility] [address] 14325- 9252 Oct, [facility] [address] 39864- 6212 Oct, [facility] [address] 25732- 1993 Oct, [facility] [address] [place] [id number] [place] [address] 64539- 9542 Oct, Dizziness 780.4 ; Essential hypertension 401.9 ; Obesity 278.00 ; Hyperlipidemia 272.4 ; Chronic pain 338.29 ; Glaucoma 365.9 and Anxiety 300.00 [facility] [address] 98457- 0751 Oct, Essential hypertension 401.9 ; Hyperlipidemia 272.4 ; Glaucoma 365.9 ; Obesity 278.00 ; Chronic pain 338.29 and Allergy to insects V15.06 [facility] [address] [place] [id number] [place] [address] 64709- 6321 Sep, [facility] [address] 24754- 1926 Sep, [facility] [address] [facility] [id number] [place] [address] Sep, [facility] [address] [facility] [id number] [address]- 4276 Sep, [facility] [address] [facility] [id number] [address]- 3751 Aug, Essential hypertension 401.9 ; Obesity 278.00 ; Hyperlipidemia 272.4 ; Glaucoma 365.9 ; Lipoma 214.9 ; Mitral valve prolapse 424.0 ; Angina at rest 413.9 ; Lymphedema 457.1 and Chronic pain 338.29 IMMUNIZATIONS No Known Immunizations SOCIAL HISTORY Never Assessed REASON FOR VISIT DARNELL PLAN OF CARE Activity Details Follow Up prn Reason:Fillings or GABE VITAL SIGNS MEDICATIONS Medication Instructions Dosage Frequency Start Date End Date Duration Status EPINEPHrine HCl 0.3 mg as directed Oct, Active Furosemide 40 MG TAKE ONE TABLET BY MOUTH ONCE DAILY Active Atorvastatin Calcium 40 mg Orally Once a day 1 tablet 24h Active Timolol Hemihydrate 0.5 % Ophthalmic 2 times a day 1 drop into both eyes 12h 20 Dec, 2014 Active Cartia XT 300 MG Orally Once a day 1 capsule 24h June, Active Viagra 100 mg Orally Once a day prn 1 tablet as needed Jul, Aug, 10 days Active Topamax 100 mg Orally Twice a day 1 tablet 12h 45 Active Cardizem CD 300 MG Orally Once a day 1 capsule 24h Active Zolpidem Tartrate 10 mg Orally Once a day ONE-HALF TO ONE TABLET 24h Active Gabapentin 300 MG TAKE ONE CAPSULE BY MOUTH TWICE DAILY Active Metoprolol Succinate ER 200 mg Orally Once a day 1 tablet 24h 90 days Active Nitrostat 0.4 MG Sublingual every 5 minutes x 3 PRN 1 tablet Active Clindamycin HCl 150 MG Orally every 6 hrs 2 capsules 6h 7 days Active Hydrocodone-Acetaminophen 7.5-325 MG Orally 4 times a day 1 tablet 6h Jul, 28 days Active Xanax 1 MG Orally Twice a day for anxiety 1 tablet 28 Active Zofran ODT 4 MG Orally every 8 hrs prn 1 tablet on the tongue and allow to dissolve Apr, Active RESULTS No Results PROCEDURES Procedure Date Ordered Result Body Site LTD ORAL EVALUATION - PROBLEM FOCUS August 20, 2016 INTRAORL-PERIAPICAL 1 FILM [id number] August 20, 2016 INSTRUCTIONS MEDICATIONS ADMINISTERED No Known Medications [...]
--- OUTSIDE RECORDS SUMMARY | 2018-02-04 15:18 | XMS REPORT ---
Author Author ASHLEY BRASHER [facility] Address [address] [place] [address] Care Team Providers Care Inspector [employer] Name Role Phone ASHLEY BRASHER Unavailable PROBLEMS Type Condition ICD9-CM Code [id number] Code Onset Dates Condition Status SNOMED Code Problem Environmental allergies Z91.09 Active 105405391 Problem Primary insomnia F51.01 Active 5731599 Problem Arrhythmia as indication for cardiac pacemaker replacement I49.9 Active 30784828 Problem Chronic pain syndrome G89.4 Active 066706803 Problem Sleep apnea, obstructive G47.33 Active 13210167 Problem Migraine without aura and without status migrainosus, not intractable G43.009 Active 881862522 Problem Hyperlipidemia E78.5 Active 56043596 Problem Myocarditis, unspecified chronicity, 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 Active 07568797 Problem Other male erectile dysfunction N52.8 Active 904224040 Problem Morbid (severe) obesity due to excess calories E66.01 Active 645360613 Problem 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 Active 803902345 Problem Body mass index (BMI) of 40.0-44.9 in adult Z68.41 Active 686520996 Problem Blindness and low vision H54.10 Active 596641694 Problem Chronic tension headaches G44.229 Active 612779286 Problem Chronic pain G89.29 Active 95770833 Problem HTN (hypertension) I10 Active 17472911 Problem Open-angle glaucoma of both eyes H40.10X0 Active 04686558 Problem Mitral valve prolapse I34.1 Active 963398964 Problem Anxiety F41.9 Active 08794233 Problem CAD (coronary artery disease) I25.10 Active 09316053 Problem Major depressive disorder, recurrent, moderate F33.1 Active 12078401 Problem Post-traumatic stress disorder, chronic F43.12 Active 842946449 ALLERGIES Substance Reaction Event Type Date Status Xalatan upper lid irritation Drug Allergy Nov, Active Penicillin G Potassium rash Drug Allergy Nov, Active Aspirin nausea and vomiting Drug Allergy Nov, Active bandaides blisters Non Drug Allergy Nov, Active Wasp venom anaphylaxis Non Drug Allergy Nov, Active ENCOUNTERS Encounter Location Date Diagnosis [facility] [id number] [place] [address] 23724- 3457 Jul, [facility] [id number] [place] [address] 49344- 0622 Jul, [facility] [id number] [place] [address] 54268- 1052 June, [facility] [id number] [place] [address] 85651- 5072 June, [facility] [id number] [place] [address] 51630- 4693 June, [facility] [id number] [place] [address] 30680- 2712 June, Left leg pain M79.605 [facility] [id number] [place] [address] 10159- 8967 May, [facility] [id number] [place] [address] 82224- 6092 May, [facility] [id number] [place] [address] 79049- 2449 May, [facility] [id number] [place] [address] 56576- 0607 May, Left leg pain M79.605 [facility] [id number] [place] [address] 11834- 7744 May, Post-traumatic stress disorder, unspecified F43.10 ; Major depressive disorder, recurrent, moderate F33.1 and Problems related to release from senior living Z65.2 [facility] [address], [place] [address]- 7084 May, Chronic pain G89.29 ; Anxiety F41.9 and Chest pain, unspecified type R07.9 [facility] [id number] [place] [address] 71036- 6266 30 Apr, 2017 [facility] [address] 27725- 7378 Apr, Left leg pain M79.605 [facility] [id number] [place] [address] 38180- 0350 Apr, Post-traumatic stress disorder, unspecified F43.10 ; Problems related to release from senior living Z65.2 ; Anxiety F41.9 and BMI 40.0-44.9 , adult Z68.41 [facility] [address] 58932- 5560 Apr, [facility] [id number] [place] [address] 33315- 1938 Apr, Left leg pain M79.605 [facility] [address] 76122- 8449 13 Apr, 2017 Post-traumatic stress disorder, unspecified F43.10 ; Major depressive disorder, recurrent, moderate F33.1 and Problems related to release from senior living Z65.2 [facility] [id number] [place] [address] 29818- 3792 Apr, [facility] [id number] [place] [address] 42820- 9553 Apr, Chronic pain G89.29 ; 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 ; Morbid (severe) obesity due to excess calories E66.01 ; Anxiety F41.9 and BMI 40.0-44.9, adult Z68.41 [facility] [id number] [place] [address] 68914 -8891 10 Apr, 2017 Sore throat J02.9 and BMI 40.0-44.9, adult Z68.41 [facility] [id number] [place] [address] 07381- 2562 02 Apr, 2017 Left leg pain M79.605 [place] [address] [place] [address] [id number] Mar, Dental examination Z01.20 [facility] [address] 57227- 9569 Mar, [facility] [id number] [place] [address] 15351 -3599 Mar, Cough R05 ; Viral gastroenteritis A08.4 and BMI 40.0-44.9, adult Z68.41 [facility] [address] 55131- 9959 Mar, Left leg pain M79.605 [facility] [place] [address] 81293- 1545 Mar, Post-traumatic stress disorder, unspecified F43.10 ; Major depressive disorder, recurrent, moderate F33.1 and Problems related to release from senior living Z65.2 [facility] [id number] [place] [address] 34719- 7813 Feb, Left leg pain M79.605 [facility] [address] 17143- 1685 Feb, [facility] [id number] [place] [address] 23214- 1106 Feb, BMI 40.0-44.9, adult Z68.41 ; Chronic pain syndrome G89.4 ; Migraine without aura and without status migrainosus, not intractable G43.009 ; Mitral valve prolapse I34.1 and 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 [facility] [id number] [place] [address] 52825- 3820 Feb, Post-traumatic stress disorder, chronic F43.12 ; Anxiety F41.9 ; Problems related to release from senior living Z65.2 and BMI 40.0-44.9, adult Z68.41 [facility] [address] 66568- 2066 Feb, Post-traumatic stress disorder, unspecified F43.10 ; Major depressive disorder, recurrent, moderate F33.1 and Problems related to release from senior living Z65.2 [facility] [id number] [place] [address] 56230- 0756 Feb, Left leg pain M79.605 [facility] [id number] [place] [address] 25489- 4846 Jan, Post-traumatic stress disorder, unspecified F43.10 ; Major depressive disorder, recurrent, moderate F33.1 and Problems related to release from senior living Z65.2 [facility] [id number] [place] [address] 87765- 0166 Jan, [facility] [id number] [place] [address] 25421- 0526 Jan, [facility] [id number] [place] [address] 26230- 8496 Jan, Anxiety F41.9 [facility] [id number] [place] [address] 69538- 1951 Jan, Left leg pain M79.605 [facility] [id number] [place] [address] 66859- 4786 Dec, Left leg pain M79.605 [facility] [id number] [place] [address] 21836- 3146 Dec, [facility] [id number] [place] [address] 496626- 4493 15 Dec, 2016 Post-traumatic stress disorder, unspecified F43.10 ; Major depressive disorder, recurrent, moderate F33.1 and Problems related to release from senior living Z65.2 [facility] [id number] [place] [address] 99221- 4540 Nov, Chronic pain G89.29 and Anxiety F41.9 [facility] [id number] [place] [address] 89400- 7904 Nov, Chronic pain G89.29 and Anxiety F41.9 [facility] [id number] [place] [address] 67498- 7277 Nov, Post-traumatic stress disorder, unspecified F43.10 ; Major depressive disorder, recurrent, moderate F33.1 and Problems related to release from senior living Z65.2 [facility] [id number] [place] [address] 23170- 6472 09 Nov, 2016 Other abnormal findings in specimens from other organs, systems and tissues R89.8 ; Other male erectile dysfunction N52.8 ; Body mass index (BMI) of 40.0-44.9 in adult Z68.41 and Morbid (severe) obesity due to excess calories E66.01 [facility] [id number] [place] [address] 21668- 1318 02 Nov, 2016 Post-traumatic stress disorder, unspecified F43.10 ; Major depressive disorder, recurrent, moderate F33.1 and Problems related to release from senior living Z65.2 [facility] [address] [id number] 29 Oct, 2016 Dental examination Z01.20 [facility] [address] 92112- 3454 Oct, [facility] [id number] [place] [address] 45623- 8572 Oct, Encounter for immunization Z23 [facility] [id number] [place] [address] 80827- 9508 Oct, Chronic pain G89.29 ; Anxiety F41.9 ; Arrhythmia as indication for cardiac pacemaker replacement I49.9 and Glaucoma H40.9 [facility] [address] 32797- 8501 Oct, Anxiety F41.9 ; Post-traumatic stress disorder, chronic F43.12 and Problems related to release from senior living Z65.2 [facility] [id number] [place] [address] 23029- 4086 07 Sep, 2017 Post-traumatic stress disorder, unspecified F43.10 ; Major depressive disorder, recurrent, moderate F33.1 and Problems related to release from senior living Z65.2 [facility] [id number] [place] [address] 41475- 4747 Sep, Chronic pain G89.29 and Anxiety F41.9 [facility] [id number] [place] [address] 63265- 1553 Sep, Post-traumatic stress disorder, unspecified F43.10 ; Major depressive disorder, recurrent, moderate F33.1 and Problems related to release from senior living Z65.2 [facility] [id number] [place] [address] 06584- 0686 Sep, Post-traumatic stress disorder, unspecified F43.10 ; Major depressive disorder, recurrent, moderate F33.1 and Problems related to release from senior living Z65.2 [facility] [address] [place] [address] 26553- 5377 Sep, Chronic pain G89.29 [facility] [address] [place] [address] 96730- 9192 Aug, Dental caries, unspecified K02.9 [facility] [id number] [place] [address] 17874- 3695 Aug, Sleep apnea, obstructive G47.33 ; Obesity E66.9 ; Chronic pain G89.29 ; HTN (hypertension) I10 ; Major depressive disorder, recurrent, moderate F33.1 ; Anxiety F41.9 ; Chronic tension headaches G44.229 ; Mitral valve prolapse I34.1 ; Arrhythmia as indication for cardiac pacemaker replacement I49.9 ; Dental caries, unspecified K02.9 ; Primary insomnia F51.01 and Hyperlipidemia E78.5 [id number] [place] [address] 09164- 0131 Aug, Post-traumatic stress disorder, unspecified F43.10 ; Major depressive disorder, recurrent, moderate F33.1 and Problems related to release from senior living Z65.2 [facility] [id number] [place] [address] 54078- 5854 Aug, Dental examination Z01.20 [facility] [address] [place] [address] [id number] Aug, Dental examination Z01.20 [facility] [address] [place] [address] 27178- 3264 06 Aug, 2016 Post-traumatic stress disorder, unspecified F43.10 ; Major depressive disorder, recurrent, moderate F33.1 and Problems related to release from senior living Z65.2 [facility] [id number] [place] [address] 92724- 2469 05 Aug, 2016 Chronic pain G89.29 and Primary insomnia F51.01 [facility] [id number] [place] [address] 47509- 9202 Jul, [facility] [id number] [place] [address] 61169- 9378 Jul, [facility] [id number] [place] [address] 06199- 6841 30 Jul, 2016 Nausea R11.0 [facility] [id number] [place] [address] 07046- 1794 Jul, Arrhythmia as indication for cardiac pacemaker replacement I49.9 [facility] [address] [place] [address] 30633- 2183 Jul, Post-traumatic stress disorder, unspecified F43.10 ; Major depressive disorder, recurrent, moderate F33.1 and Problems related to release from senior living Z65.2 [facility] [address] [place] [address] 32036- 2682 09 Jul, 2016 Anxiety F41.9 [facility] [address] [place] [address] 78757- 6305 08 Jul, 2016 Chronic pain G89.29 [facility] [address] [place] [address] 59548- 3689 Jul, Sleep apnea, obstructive G47.33 ; Hyperlipidemia E78.5 ; Chronic pain G89.29 ; Blindness and low vision H54.10 ; Major depressive disorder, recurrent, moderate F33.1 ; Anxiety F41.9 ; Mitral valve prolapse I34.1 ; Arrhythmia as indication for cardiac pacemaker replacement I49.9 ; Primary insomnia F51.01 ; Bilateral headaches R51 and Environmental allergies Z91.09 [facility] [address] [place] [address] 71952- 0368 Jul, Post-traumatic stress disorder, unspecified F43.10 ; Major depressive disorder, recurrent, moderate F33.1 and Problems related to release from senior living Z65.2 [facility] [address] 20324- 5694 June, Post-traumatic stress disorder, chronic F43.12 ; Anxiety F41.9 ; Problems related to release from senior living Z65.2 ; Sleep apnea, obstructive G47.33 and Primary insomnia F51.01 [facility] [address] 95137- 5504 June, [facility] [address] 49523- 9381 June, [facility] [address] 88742- 4624 June, [facility] [id number] [place] [address] 09022- 1971 June, Chronic pain G89.29 [facility] [address] 81419- 3830 June, Chronic pain G89.29 [facility] [address] [place] [address] 67689- 2351 June, Lipoma of left lower extremity D17.24 ; Open wound T14.8 and Swelling of left lower extremity M79.89 [facility] [address] [place] [address] 80983- 4817 June, Post-traumatic stress disorder, unspecified F43.10 ; Major depressive disorder, recurrent, moderate F33.1 and Problems related to release from senior living Z65.2 [facility] [address] [place] [address] 53782- 5202 May, Lipoma of left lower extremity D17.24 ; Major depressive disorder, recurrent, moderate F33.1 ; Sleep apnea, obstructive G47.33 ; Hyperlipidemia E78.5 ; Obesity E66.9 ; HTN (hypertension) I10 ; Glaucoma H40.9 ; CAD (coronary artery disease) I25.10 ; Chronic tension headaches G44.229 ; Chronic pain G89.29 ; Anxiety F41.9 ; Nausea R11.0 and Primary insomnia F51.01 [facility] [facility] [address] 23103- 4732 May, [facility] [address] 47512- 5424 May, Chronic pain G89.29 [facility] [address] 76460- 9634 May, [facility] [address] 57225- 1022 Apr, Post-traumatic stress disorder, unspecified F43.10 ; Major depressive disorder, recurrent, moderate F33.1 and Problems related to release from senior living Z65.2 [facility] [address] [place] [address] 01520- 3112 Apr, Primary insomnia F51.01 ; Post-traumatic stress disorder, chronic F43.12 and Problems related to release from senior living Z65.2 [facility] [address] [place] [address] 29926- 5955 Apr, Post-traumatic stress disorder, unspecified F43.10 ; Major depressive disorder, recurrent, moderate F33.1 and Problems related to release from senior living Z65.2 [facility] [address] [place] [address] 37235- 7392 Apr, [facility] [address] 74260- 3753 16 Apr, 2016 Sleep apnea, obstructive G47.33 ; Chronic pain G89.29 ; HTN (hypertension) I10 ; Mitral valve prolapse I34.1 ; Shoulder pain, left M25.512 ; Arrhythmia as indication for cardiac pacemaker replacement I49.9 ; Glaucoma H40.9 ; Bilateral headaches R51 ; Environmental allergies Z91.09 ; Primary insomnia F51.01 and Nausea R11.0 [facility] [facility] [address] 20379- 2971 Apr, [facility] [address] [place] [address] 73098- 0197 Apr, [facility] [facility] [address] 24037- 1252 Apr, Post-traumatic stress disorder, unspecified F43.10 ; Major depressive disorder, recurrent, moderate F33.1 and Problems related to release from senior living Z65.2 [facility] [address] [place] [address] 07657- 6058 Apr, HTN (hypertension) I10 [facility] [address] [place] [address] 79367- 8222 Apr, HTN (hypertension) I10 [facility] [address] [place] [address] 47479- 2852 14 Mar, 2016 Chronic pain G89.29 ; Primary insomnia F51.01 and Problems related to release from senior living Z65.2 [facility] [address] [place] [address] 89025- 0160 07 Mar, 2016 Post-traumatic stress disorder, unspecified F43.10 ; Major depressive disorder, recurrent, moderate F33.1 and Problems related to release from senior living Z65.2 [facility] [address] [place] [address]- 2820 Feb, Post-traumatic stress disorder, unspecified F43.10 ; Major depressive disorder, recurrent, moderate F33.1 and Problems related to release from senior living Z65.2 [facility] [address] [place] [address] 90174- 2513 Feb, Chronic tension headaches G44.[address] 64972- 6355 Feb, Sleep apnea, obstructive G47.33 ; Obesity [...] pacemaker replacement I49.9 and Primary insomnia F51.[address] 87777- 4025 Feb, Post-traumatic stress disorder, unspecified F43.10 and Chronic pain G89.[address] 60067- 1950 Feb, [facility] [address] [id number] Feb, Dental caries K02.[address] 60683- 2016 Feb, [address] 41826- 1753 Feb, Post-traumatic stress disorder, unspecified F43.10 ; Major depressive disorder, recurrent, moderate F33.1 and Problems related to release from senior living Z65.[address] 91245- 4265 Jan, Sleep apnea, obstructive G47.33 and Chronic pain G89.[address] 28897- 6379 Jan, [address] 31481- 5275 14 Jan, 2016 Dental examination Z01.20 [facility] [address], [place] [address]- 3001 Jan, [facility] [address] [place] [address] 356536- 8593 Jan, [facility] [address], [place] [address]- 3921 Dec, Post-traumatic stress disorder, unspecified F43.10 ; Major depressive disorder, recurrent, moderate F33.1 and Problems related to release from senior living Z65.2 [place] [id number] [place] [address] 67776- 9137 Dec, Encounter for immunization Z23 ; Problems related to release from senior living Z65.2 ; Sleep apnea, obstructive G47.33 and Post-traumatic stress disorder, chronic F43.12 [place] [address] [place] [address] 15526- 6280 Dec, Sleep apnea, obstructive G47.33 ; Hyperlipidemia E78.5 ; Chronic pain G89.29 ; Glaucoma H40.9 ; HTN (hypertension) I10 ; Post-traumatic stress disorder, unspecified F43.10 ; Anxiety F41.9 ; Chronic tension headaches G44.229 ; Mitral valve prolapse I34.1 and CAD (coronary artery disease) I25.10 [facility] [address] [address]- 5603 Dec, Post-traumatic stress disorder, unspecified F43.10 ; Major depressive disorder, recurrent, moderate F33.1 and Problems related to release from senior living Z65.2 [facility] [id number] [address]- 4204 Nov, Chronic pain G89.29 [address] [place] [address] 72714- 5002 Nov, Post-traumatic stress disorder, unspecified F43.10 ; Major depressive disorder, recurrent, moderate F33.1 and Problems related to release from senior living Z65.2 [facility] [address] [address]- 4362 Oct, [facility] [address] [place] [address] 64201- 6907 Oct, [facility] [address] [place] [address] 34065- 5815 Oct, Post-traumatic stress disorder, unspecified F43.10 ; Major depressive disorder, recurrent, moderate F33.1 and Problems related to release from senior living Z65.2 [facility] [id number] [place] [address] 39599- 2489 08 Oct, 2015 [facility] [address] [place] [address] 72118- 6728 07 Oct, 2015 Environmental allergies Z91.09 ; Cough R05 and Open-angle glaucoma of both eyes H40.10X0 [facility] [address] [place] [address] 56856- 8311 Sep, [facility] [address] [place] [address] 52622- 7138 Sep, Post-traumatic stress disorder, unspecified F43.10 ; Major depressive disorder, recurrent, moderate F33.1 and Problems related to release from senior living Z65.2 [facility] [address], [place] [address]- 3823 Sep, Chronic pain G89.29 [facility] [address] [place] [address] 74935- 5109 Sep, Pain in left shoulder M25.512 ; Pain in right shoulder M25.511 and Other chronic pain G89.29 [facility] [id number] [place] [address] 54068- 1808 Sep, [facility] [id number] [place] [address] 58224- 7390 Sep, [facility] [address] [place] [address] 86864- 1106 Sep, [facility] [id number] [id number] Aug, Dental examination Z01.20 [facility] [id number] [place] [address] 61185- 8098 Aug, Post-traumatic stress disorder, unspecified F43.10 ; Open- angle glaucoma of both eyes H40.10X0 and Problems related to release from senior living Z65.2 [facility] [address] [place] [address] 73653- 3359 Aug, [facility] [id number] [place] [address] 37610- 6061 Aug, Sleep apnea, obstructive G47.33 ; Obesity E66.9 ; Hyperlipidemia E78.5 ; Bilateral headaches R51 ; HTN (hypertension) I10 ; Post- traumatic stress disorder, unspecified F43.10 ; Anxiety F41.9 ; Neuropathy G62.9 ; Glaucoma H40.9 and Chronic pain G89.29 [facility] [id number] [place] [address] [id number] Aug, Encounter for dental examination Z01.20 [facility] [id number] [place] [address] 14295- 4213 Aug, Post-traumatic stress disorder, unspecified F43.10 ; Major depressive disorder, recurrent, moderate F33.1 and Problems related to release from senior living Z65.2 [facility] [address], [place] [address] Aug, [facility] [id number] [place] [address] 48367- 9286 Jul, [facility] [address] [place] [id number] [place] [address] 13993- 0244 Jul, Post-traumatic stress disorder, unspecified F43.10 and Major depressive disorder, recurrent, moderate F33.1 [facility] [id number] [place] [address] 31032- 6619 Jul, [facility] [address], [place] [address] Jul, [facility] [id number] [place] [address] 14548- 8854 Jul, Chronic pain G89.29 [facility] [address], [place] [address] June, Post-traumatic stress disorder, unspecified F43.10 and Major depressive disorder, recurrent, moderate F33.1 [facility] [id number] [place] [address] 82729- 7776 June, [facility] [id number] [place] [address] 36015- 1993 June, Chronic pain G89.29 [facility] [address], [place] [address] June, Post-traumatic stress disorder, unspecified F43.10 and Major depressive disorder, recurrent, moderate F33.1 [facility] [address] [address] May, Post-traumatic stress disorder, unspecified F43.10 and Major depressive disorder, recurrent, moderate F33.1 [facility] [address], [place] [address] May, [facility] [address], [place] [address] 1188 May, [facility] [address], [place] [address] 3768 May, [facility] [id number] [place] [address] 17344- 9577 Apr, [facility] [address], [place] [address] Apr, Post-traumatic stress disorder, unspecified F43.10 and Sleep apnea, obstructive G47.33 [facility] [id number] [place] [address] 50968- 6601 31 Apr, 2015 [facility] [id number] [place] [address] 39217- 2923 21 Apr, 2015 Shoulder pain, left M25.512 [facility] [id number] [place] [address] 76970- 4217 18 Apr, 2015 Post-traumatic stress disorder, unspecified F43.10 and Major depressive disorder, recurrent, moderate F33.1 [facility] [id number] [place] [address] 36893- 7680 17 Apr, 2015 [facility] [id number] [place] [address] 90961- 7123 11 Apr, 2015 [facility] [id number] [place] [address] 12414- 9365 08 Apr, 2015 [facility] [id number] [place] [address] 38056- 0686 07 Apr, 2015 Left shoulder pain M25.512 [facility] [id number] [place] [address] 83980- 4828 Mar, [facility] [id number] [place] [address] 45514- 5958 Mar, [facility] [id number] [place] [address] 96672- 9063 18 Mar, 2015 [facility] [id number] [place] [address] 33649- 0469 Mar, Sleep apnea, obstructive G47.33 ; Obesity E66.9 ; Chronic pain G89.29 ; Hyperlipidemia E78.5 ; HTN (hypertension) I10 ; Blindness and low vision H54.10 ; Major depressive disorder, recurrent, moderate F33.1 and Anxiety F41.9 [facility] [id number] [place] [address] 43289- 2105 11 Mar, 2015 [facility] [id number] [place] [address] 43902- 0612 10 Mar, 2015 Post-traumatic stress disorder, unspecified F43.10 and Major depressive disorder, recurrent, moderate F33.1 [facility] [id number] [place] [address] 97134- 5350 08 Mar, 2015 [facility] [id number] [place] [address] 31033- 3555 04 Mar, 2015 HTN (hypertension) I10 ; Blindness and low vision H54.10 ; Obesity E66.9 ; Hyperlipidemia E78.5 ; Glaucoma H40.9 ; Chronic pain G89.29 and CAD (coronary artery disease) I25.10 [facility] [id number] [place] [address] 413852- 0436 Feb, [facility] [id number] [place] [address] 03675- 4832 Feb, Post-traumatic stress disorder, unspecified F43.10 ; Obesity E66.9 ; Sleep apnea, obstructive G47.33 and Open-angle glaucoma of both eyes H40.10X0 [facility] [id number] [place] [address] 90297- 3877 Feb, Post-traumatic stress disorder, unspecified F43.10 and Major depressive disorder, recurrent, moderate F33.1 [facility] [id number] [place] [address] 65159- 4790 Feb, [facility] [id number] [place] [address] 68123- 7408 Feb, [facility] [id number] [place] [address] 21998- 6106 Feb, HTN (hypertension) I10 ; Post-traumatic stress disorder, unspecified F43.10 ; Blindness and low vision H54.10 ; Obesity E66.9 ; Hyperlipidemia E78.5 ; Chronic pain G89.29 ; Glaucoma H40.9 ; Mitral valve prolapse I34.1 and Bilateral headaches R51 [facility] [id number] [place] [address] 69157- 8544 Feb, [facility] [id number] [place] [address] 55707- 1174 Feb, Post-traumatic stress disorder, unspecified F43.10 and Major depressive disorder, recurrent, moderate F33.1 [facility] [id number] [place] [address] 98111- 5211 Feb, [facility] [id number] [place] [address] 19842- 3093 Feb, [facility] [id number] [place] [address] 92182- 8886 Jan, [facility] [id number] [place] [address] 73772- 7754 Jan, [facility] [id number] [place] [address] 13339- 8921 Jan, Obesity E66.9 ; HTN (hypertension) I10 ; Blindness and low vision H54.10 ; Major depressive disorder, recurrent, moderate F33.1 ; Glaucoma H40.9 ; Hyperlipidemia E78.5 ; Sleep apnea, obstructive G47.33 ; Chronic pain G89.29 ; Anxiety F41.9 ; Chronic tension headaches G44.229 and Cough R05 [facility] [id number] [place] [address] 50308- 3607 Jan, [facility] [id number] [place] [address] 06643- 8704 Jan, [facility] [id number] [place] [address] 71906- 3869 Jan, Post-traumatic stress disorder, unspecified F43.10 ; Obesity E66.9 ; Sleep apnea, obstructive G47.33 and Open-angle glaucoma of both eyes H40.10X0 [place] [id number] [place] [address] 89344- 1055 Jan, [facility] [id number] [place] [address] 18064- 4008 Jan, Post-traumatic stress disorder, unspecified F43.10 and Major depressive disorder, recurrent, moderate F33.1 [facility] [address] [address]15- 4984 Dec, [facility] [address] 35253- 7566 Dec, Sleep apnea, obstructive G47.33 ; Obesity E66.9 ; Hyperlipidemia E78.5 ; Glaucoma H40.9 ; Chronic pain G89.29 ; HTN (hypertension ) I10 ; 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 ; Anxiety F41.9 and CAD (coronary artery disease) I25.10 [facility] [address] 03601- 9683 Nov, [facility] [address] 81003- 5857 Nov, [facility] [address] [place] [address] 17468- 9168 Nov, [facility] [address] 09681- 3195 Nov, [address] 9[address]41- 8826 Nov, [facility] [address] [place] [address] 52877- 1851 Nov, Encounter for immunization Z23 ; Sleep apnea, obstructive G47.33 ; Obesity E66.9 ; Hyperlipidemia E78.5 ; Glaucoma H40.9 ; Chronic pain G89.29 ; Anxiety F41.9 ; Chronic tension headaches G44.229 and HTN (hypertension ) I10 [facility] [address] [place] [address] 06057- 0684 Nov, [facility] [address] [place] [address] 92958- 7685 Nov, [facility] [address] [place] [address] 54183- 2122 Nov, Dizziness R42 [facility] [address], [place] [address]- 8543 Nov, [facility] [id number] [place] [address] 11550- 8141 Oct, [facility] [id number] [place] [address] 48468- 9658 Oct, [facility] [address] 40496- 0881 Oct, [facility] [id number] [place] [address] 91539- 1152 Oct, [facility] [id number] [place] [address] 66227- 8516 Oct, Dizziness 780.4 ; Essential hypertension 401.9 ; Obesity 278.00 ; Hyperlipidemia 272.4 ; Chronic pain 338.29 ; Glaucoma 365.9 and Anxiety 300.00 [facility] [id number] [place] [address] 90175- 7279 Oct, Essential hypertension 401.9 ; Hyperlipidemia 272.4 ; Glaucoma 365.9 ; Obesity 278.00 ; Chronic pain 338.29 and Allergy to insects V15.06 [facility] [address] [place] [address] 00751- 9854 Sep, [facility] [id number] [place] [address] 71289- 2761 Sep, [facility] [id number] [place] [address] 04231- 6780 Sep, [facility] [id number] [place] [address] 40947- 7014 Sep, [facility] [id number] [place] [address] 70639- 9617 Aug, Essential hypertension 401.9 ; Obesity 278.00 ; Hyperlipidemia 272.4 ; Glaucoma 365.9 ; Lipoma 214.9 ; Mitral valve prolapse 424.0 ; Angina at rest 413.9 ; Lymphedema 457.1 and Chronic pain 338.29 IMMUNIZATIONS No Known Immunizations SOCIAL HISTORY Never Assessed REASON FOR VISIT Anxiety fu --duran zaidi PLAN OF CARE Activity Details Follow Up follow up as needed Reason: VITAL SIGNS Height 67 in 2016-11-16 Weight 271.0 lbs 2016-11-16 Temperature 97.8 degrees Fahrenheit 2016-11-16 Heart Rate 80 bpm 2016-11-16 Respiratory Rate 22 2016-11-16 BMI 42.44 kg/m2 2016-11-16 Blood pressure systolic 126 mmHg 2016-11-16 Blood pressure diastolic 86 mmHg 2016-11-16 MEDICATIONS Medication Instructions Dosage Frequency Start Date End Date Duration Status Furosemide 40 MG Orally Once a day 1 tablet 24h Active Zofran ODT 4 MG Orally every 8 hrs prn 1 tablet on the tongue and allow to dissolve 10 Active Cartia XT 300 MG Orally Once a day 1 capsule 24h 30 Active Topamax 100 mg Orally Twice a day 1 tablet 12h Active EPINEPHrine HCl 0.3 mg as directed Oct, 30 days Active Viagra 100 mg Orally 1 time daily as needed as directed Nov, Nov, 90 days Active Viagra 100 mg Orally Once a day prn 1 tablet as needed Jul, 10 days Active Nitrostat 0.4 MG Sublingual every 5 minutes x 3 PRN 1 tablet 30 days Active Metoprolol Succinate ER 200 mg Orally Once a day 1 tablet 24h 30 Active Elavil 25 MG Orally Take 1 tablet at HS for 3 night then can increase to 1 or 2 tabs at HS for sleep 1 tablet Oct, Active Gabapentin 300 MG Orally 2 times a day 1 capsule 12h Active Hydrocodone-Acetaminophen 7.5-325 MG Orally 4 times a day 1 tablet 6h Oct, 28 days Active Xanax 1 MG Orally Twice a day for anxiety 1 tablet 30 days Active Timolol Hemihydrate 0.5 % Ophthalmic 2 times a day 1 drop into both eyes 12h Dec, Active Atorvastatin Calcium 40 mg Orally Once [...]
--- OUTSIDE RECORDS SUMMARY | 2018-02-04 15:18 | XMS REPORT ---
Author Author EDUIN CARDONA [facility] Address [address] [place] [address] Care Team Providers Care Cancer Registry Coordinator Name Role Phone EDUIN CARDONA Unavailable PROBLEMS Type Condition ICD9-CM Code [id number] Code Onset Dates Condition Status SNOMED Code Problem Glaucoma H40.9 Active 46564004 Problem Problems related to release from detention Z65.2 Active 61576849 Problem Sleep apnea, obstructive G47.33 Active 07167638 Problem Encounter for dental examination Z01.20 Active 175753244 Problem Chronic pain G89.29 Active 61565277 Problem Bilateral headaches R51 Active 949530752 Problem Obesity E66.9 Active 080129165 Problem Post-traumatic stress disorder, chronic F43.12 Active 233327214 Problem Arrhythmia as indication for cardiac pacemaker replacement I49.9 Active 16336346 Problem Environmental allergies Z91.09 Active 645821061 Problem Morbid (severe) obesity due to excess calories E66.01 Active 477266719 Problem Other male erectile dysfunction N52.8 Active 101007864 Problem Blindness and low vision H54.10 Active 989022154 Problem HTN (hypertension) I10 Active 17998066 Problem Hyperlipidemia E78.5 Active 92623970 Problem Post-traumatic stress disorder, unspecified F43.10 Active 37137351 Problem Primary insomnia F51.01 Active 5091108 Problem Other abnormal findings in specimens from other organs, systems and tissues R89.8 Active 262643464 Problem Body mass index (BMI) of 40.0-44.9 in adult Z68.41 Active 764026871 Problem Cough R05 Active 59393582 Problem Major depressive disorder, recurrent, moderate F33.1 Active 14939155 Problem Chronic tension headaches G44.229 Active 736220616 Problem Anxiety F41.9 Active 62816694 Problem CAD (coronary artery disease) I25.10 Active 16656482 Problem Shoulder pain, left M25.512 Active 40665963 Problem Open-angle glaucoma of 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
--- OUTSIDE RECORDS SUMMARY | 2018-02-04 15:19 | XMS REPORT ---
Author Author EDUIN CARDONA [facility] Address [address] [place] [address] Care Team Providers Care [place] [employer] Operator Name Role Phone EDUIN CARDONA Unavailable PROBLEMS Type Condition ICD9-CM Code ANQ10-WF Code Onset Dates Condition Status SNOMED Code Problem Glaucoma H40.9 Active 67415891 Problem Problems related to release from senior living Z65.2 Active 42109975 Problem Sleep apnea, obstructive G47.33 Active 75119414 Problem Encounter for dental examination Z01.20 Active 079499281 Problem Chronic pain G89.29 Active 88631759 Problem Bilateral headaches R51 Active 848785948 Problem Obesity E66.9 Active 495655976 Problem Post-traumatic stress disorder, chronic F43.12 Active 413750526 Problem Arrhythmia as indication for cardiac pacemaker replacement I49.9 Active 62870247 Problem Environmental allergies Z91.09 Active 293131122 Problem Morbid (severe) obesity due to excess calories E66.01 Active 211029983 Problem Other male erectile dysfunction N52.8 Active 123504856 Problem Blindness and low vision H54.10 Active 115796996 Problem HTN (hypertension) I10 Active 61539444 Problem Hyperlipidemia E78.5 Active 00602992 Problem Post-traumatic stress disorder, unspecified F43.10 Active 73732716 Problem Primary insomnia F51.01 Active 4154736 Problem Other abnormal findings in specimens from other organs, systems and tissues R89.8 Active 370236346 Problem Body mass index (BMI) of 40.0-44.9 in adult Z68.41 Active 051369728 Problem Cough R05 Active 75879320 Problem Major depressive disorder, recurrent, moderate F33.1 Active 36311777 Problem Chronic tension headaches G44.229 Active 775259299 Problem Anxiety F41.9 Active 31276279 Problem CAD (coronary artery disease) I25.10 Active 47421563 Problem Shoulder pain, left M25.512 Active 40053048 Problem Open-angle glaucoma of both 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 Active 31181892 Problem Mitral valve prolapse I34.1 Active 541621512 ALLERGIES Substance Reaction Event Type Date Status Xalatan upper lid irritation Drug Allergy Apr, Active Penicillin G Potassium rash Drug Allergy Apr, Active Aspirin nausea and vomiting Drug Allergy Apr, Active Wasp venom anaphylaxis Non Drug Allergy Apr, Active SOCIAL HISTORY Never Assessed PLAN OF CARE VITAL SIGNS MEDICATIONS Medication Instructions Dosage Frequency Start Date End Date Duration Status Timolol 0.5 % Ophthalmic 2 times a day 1 drop into both eyes 12h 20 Dec, 2014 Active RESULTS No Results PROCEDURES No Known [...]
--- OUTSIDE RECORDS SUMMARY | 2018-02-04 15:19 | XMS REPORT ---
Author Author EDUIN CARDONA Organization [facility] Address [address] [place] [address] Care Team Providers Care Pest Control Applicator Name Role Phone EDUIN CARDONA Unavailable PROBLEMS Type Condition ICD9-CM Code ARN19-CF Code Onset Dates Condition Status SNOMED Code Problem CAD (coronary artery disease) I25.10 Active 63329849 Problem Encounter for dental examination Z01.20 Active 544058722 Problem Shoulder pain, left M25.512 Active 04793399 Problem Post-traumatic stress disorder, unspecified F43.10 Active 17215173 Problem Hyperlipidemia E78.5 Active 78923716 Problem Primary insomnia F51.01 Active 5742539 Problem Obesity E66.9 Active 531730255 Problem Chronic pain G89.29 Active 83464216 Problem Post-traumatic stress disorder, chronic F43.12 Active 614252850 Problem Bilateral headaches R51 Active 326924006 Problem Arrhythmia as indication for cardiac pacemaker replacement I49.9 Active 97481959 Problem Environmental allergies Z91.09 Active 015471559 Problem Blindness and low vision H54.10 Active 401798475 Problem HTN (hypertension) I10 Active 79849900 Problem Glaucoma H40.9 Active 59435204 Problem Problems related to release from [facility] Z65.2 Active 03354641 Problem Anxiety F41.9 Active 04588150 Problem Major depressive disorder, recurrent, moderate F33.1 Active 59860960 Problem Chronic tension headaches G44.229 Active 416857941 Problem Open-angle glaucoma of both 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
--- OUTSIDE RECORDS SUMMARY | 2018-02-04 15:20 | XMS REPORT ---
Author Author ASHLEY BRASHER [facility] Address [address] [place] [address] Care Team Providers Care [employer] Supervisor Name Role Phone SAMEERA ASHLEY Unavailable PROBLEMS Type Condition ICD9-CM Code PSG15-FM Code Onset Dates Condition Status SNOMED Code Problem Arrhythmia as indication for cardiac pacemaker replacement I49.9 Active 32431203 Problem Body mass index (BMI) of 40.0-44.9 in adult Z68.41 Active 643103267 Problem Primary insomnia F51.01 Active 9282968 Problem Sarcoidosis D86.9 Active 23101567 Problem Chronic pain G89.29 Active 96712953 Problem Chronic pain syndrome G89.4 Active 636655927 Problem Sleep apnea, obstructive G47.33 Active 35669895 Problem Hyperlipidemia E78.5 Active 75657811 Problem Other male erectile dysfunction N52.8 Active 622075151 Problem Morbid (severe) obesity due to excess calories E66.01 Active 056777071 Problem Migraine without aura and without status migrainosus, not intractable G43.009 Active 548687362 Problem 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 Active 615153514 Problem Chronic tension headaches G44.229 Active 897736339 Problem Anxiety F41.9 Active 76858921 Problem HTN (hypertension) I10 Active 67128726 Problem Blindness and low vision H54.10 Active 691946037 Problem Mitral valve prolapse I34.1 Active 709593498 Problem CAD (coronary artery disease) I25.10 Active 01459444 Problem Major depressive disorder, recurrent, moderate F33.1 Active 82818158 Problem Post-traumatic stress disorder, chronic F43.12 Active 614038738 Problem Myocarditis, unspecified chronicity, 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 Active 46903620 Problem Open-angle glaucoma of both eyes H40.10X0 Active 90808048 Problem Environmental allergies Z91.09 Active 620402869 ALLERGIES No Information ENCOUNTERS Encounter Location Date Diagnosis [facility] [address] [address] Aug, [facility] [id number] [place] [address] 87466- 0823 Jul, [facility] [address] [address] Jul, [facility] [id number] [place] [address] 41252- 4132 Jul, [facility] [id number] [place] [address] 14886- 8326 Jul, Sarcoidosis D86.9 [facility] [id number] [place] [address] 89337- 1130 Jul, Post-traumatic stress disorder, unspecified F43.10 ; Major depressive disorder, recurrent, moderate F33.1 and Problems related to release from halfway Z65.2 [facility] [id number] [place] [address] 20860- 5882 June, [facility] [id number] [place] [address] 28781 -7225 June, Sore throat J02.9 and BMI 40.0-44.9, adult Z68.41 [facility] [address] [address] 3991 June, [facility] [address] [address] June, [facility] [address] [address] 2[address] June, [facility] [id number] [place] [address] 89115- 6300 June, Left leg pain M79.605 [facility] [address] [address] 0036 June, Sarcoidosis D86.9 [facility] [id number] [address] 6[address] June, [facility] [address] [address] 4245 June, [facility] [address] [address] 9533 June, Left leg pain M79.605 [facility] [id number] [place] [address] 63183- 3165 May, [facility] [id number] [place] [address] 45100- 1295 May, [facility] [id number] [place] [address] 43019- 6052 May, [facility] [id number] [place] [address] 69113- 9835 May, Left leg pain M79.605 [facility] [id number] [place] [address] 56884- 5080 May, Post-traumatic stress disorder, unspecified F43.10 ; Major depressive disorder, recurrent, moderate F33.1 and Problems related to release from halfway Z65.2 [facility] [address] [place] [address] 34269- 0681 May, Chronic pain G89.29 ; Anxiety F41.9 ; Chest pain, unspecified type R07.9 and BMI 40.0-44.9, adult Z68.41 [facility] [address] [address] 2565 Apr, [facility] [id number] [place] [address] 84647- 9132 Apr, Left leg pain M79.605 [facility] [address] [address] 4603 Apr, Post-traumatic stress disorder, unspecified F43.10 ; Problems related to release from halfway Z65.2 ; Anxiety F41.9 and BMI 40.0-44.9 , adult Z68.41 [facility] [id number] [place] [address] 17525- 8990 22 Apr, 2017 [facility] [place] [address] 27291- 5308 19 Apr, 2017 Left leg pain M79.605 [facility] [address] 07428- 2955 13 Apr, 2017 Post-traumatic stress disorder, unspecified F43.10 ; Major depressive disorder, recurrent, moderate F33.1 and Problems related to release from halfway Z65.2 [facility] [address] 45642- 7029 12 Apr, 2017 [place] [address] 56842- 4025 12 Apr, 2017 Chronic pain G89.29 ; 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 ; Morbid (severe) obesity due to excess calories E66.01 ; Anxiety F41.9 and BMI 40.0-44.9, adult Z68.41 [facility] [place] [address] 68580 -2841 10 Apr, 2017 Sore throat J02.9 and BMI 40.0-44.9, adult Z68.41 [place] [address] 40096- 1568 02 Apr, 2017 Left leg pain M79.605 [facility] [address] [id number] Mar, Dental examination Z01.20 [place] [address] 81826- 9289 Mar, [facility] [address] 88190 -8564 20 Mar, 2017 Cough R05 ; Viral gastroenteritis A08.4 and BMI 40.0-44.9, adult Z68.[address] [place] [address]- 9711 Mar, Left leg pain M79.605 [place] [address] 90199- 0744 Mar, Post-traumatic stress disorder, unspecified F43.10 ; Major depressive disorder, recurrent, moderate F33.1 and Problems related to release from halfway Z65.2 [place] [address] 11476- 0858 Feb, Left leg pain M79.605 [place] [address] 39888- 1116 Feb, [facility] [address] 82696- 5163 Feb, BMI 40.0-44.9, adult Z68.41 ; Chronic pain syndrome G89.4 ; Migraine without aura and without status migrainosus, not intractable G43.009 ; Mitral valve prolapse I34.1 and 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 [facility] [id number] [place] [address] 77757- 5827 Feb, Post-traumatic stress disorder, chronic F43.12 ; Anxiety F41.9 ; Problems related to release from halfway Z65.2 and BMI 40.0-44.9, adult Z68.41 [facility] [id number] [place] [address] 66015- 0013 Feb, Post-traumatic stress disorder, unspecified F43.10 ; Major depressive disorder, recurrent, moderate F33.1 and Problems related to release from halfway Z65.2 [facility] [id number] [place] [address] 09010- 6316 Feb, Left leg pain M79.605 [facility] [id number] [place] [address] 94581- 8396 Jan, Post-traumatic stress disorder, unspecified F43.10 ; Major depressive disorder, recurrent, moderate F33.1 and Problems related to release from halfway Z65.2 [facility] [address] [address]- 4099 Jan, [facility] [id number] [place] [address] 54972- 7525 Jan, [facility] [address] [address]- 8505 Jan, Anxiety F41.9 [facility] [id number] [place] [address] 35853- 7733 Jan, Left leg pain M79.605 [facility] [id number] [place] [address] 58932- 5234 Dec, Left leg pain M79.605 [facility] [address] [place] [address] 72038- 9003 Dec, [facility] [id number] [place] [address] 94315- 1935 Dec, Post-traumatic stress disorder, unspecified F43.10 ; Major depressive disorder, recurrent, moderate F33.1 and Problems related to release from halfway Z65.2 [facility] [address] [address]- 3185 31 Nov, 2016 Chronic pain G89.29 and Anxiety F41.9 [facility] [address] [address]- 0305 24 Nov, 2016 Chronic pain G89.29 and Anxiety F41.9 [facility] [address] [address]- 5633 16 Nov, 2016 Post-traumatic stress disorder, unspecified F43.10 ; Major depressive disorder, recurrent, moderate F33.1 and Problems related to release from halfway Z65.2 [facility] [address] [address]- 1330 09 Nov, 2016 Other abnormal findings in specimens from other organs, systems and tissues R89.8 ; Other male erectile dysfunction N52.8 ; Body mass index (BMI) of 40.0-44.9 in adult Z68.41 and Morbid (severe) obesity due to excess calories E66.01 [facility] [address] [place] [address] 33727- 5012 02 Nov, 2016 Post-traumatic stress disorder, unspecified F43.10 ; Major depressive disorder, recurrent, moderate F33.1 and Problems related to release from halfway Z65.2 [facility] [id number] [place] [address] [id number] 29 Oct, 2016 Dental examination Z01.20 [facility] [id number] [place] [address] 20651- 0583 Oct, [facility] [id number] [place] [address] 68413- 8548 Oct, Encounter for immunization Z23 [facility] [id number] [place] [address] 54721- 9874 Oct, Chronic pain G89.29 ; Anxiety F41.9 ; Arrhythmia as indication for cardiac pacemaker replacement I49.9 and Glaucoma H40.9 [facility] [address] [place] [address] 75632- 5004 Oct, Anxiety F41.9 ; Post-traumatic stress disorder, chronic F43.12 and Problems related to release from halfway Z65.2 [facility] [address] [place] [address] 97345- 6443 Oct, Post-traumatic stress disorder, unspecified F43.10 ; Major depressive disorder, recurrent, moderate F33.1 and Problems related to release from halfway Z65.2 [facility] [id number] [place] [address] 11359- 9540 Sep, Chronic pain G89.29 and Anxiety F41.9 [facility] [id number] [place] [address] 09476- 1709 Sep, Post-traumatic stress disorder, unspecified F43.10 ; Major depressive disorder, recurrent, moderate F33.1 and Problems related to release from halfway Z65.2 [facility] [place] [address] [address]- 3315 11 Sep, 2016 Post-traumatic stress disorder, unspecified F43.10 ; Major depressive disorder, recurrent, moderate F33.1 and Problems related to release from halfway Z65.2 [facility] [address] [place] [address] 79871- 1221 Sep, Chronic pain G89.29 [facility] [id number] [place] [address] 74454- 5970 Aug, Dental caries, unspecified K02.9 [facility] [id number] [place] [address] 93576- 3957 Aug, Sleep apnea, obstructive G47.33 ; Obesity E66.9 ; Chronic pain G89.29 ; HTN (hypertension) I10 ; Major depressive disorder, recurrent, moderate F33.1 ; Anxiety F41.9 ; Chronic tension headaches G44.229 ; Mitral valve prolapse I34.1 ; Arrhythmia as indication for cardiac pacemaker replacement I49.9 ; Dental caries, unspecified K02.9 ; Primary insomnia F51.01 and Hyperlipidemia E78.5 [facility] [id number] [place] [address] 88244- 3883 Aug, Post-traumatic stress disorder, unspecified F43.10 ; Major depressive disorder, recurrent, moderate F33.1 and Problems related to release from halfway Z65.2 [facility] [id number] [place] [address] 63803- 1489 Aug, Dental examination Z01.20 [facility] [address] [place] [address] [id number] Aug, Dental examination Z01.20 [facility] [id number] [place] [address] 15535- 5154 Aug, Post-traumatic stress disorder, unspecified F43.10 ; Major depressive disorder, recurrent, moderate F33.1 and Problems related to release from halfway Z65.2 [facility] [place] [id number] [place] [address] 00629- 5421 Aug, Chronic pain G89.29 and Primary insomnia F51.01 [facility] [address] [address]- 6130 Jul, [facility] [address] [address]- 2676 Jul, [facility] [id number] [place] [address] 15253- 7690 Jul, Nausea R11.0 [facility] [id number] [place] [address] 32695- 8929 Jul, Arrhythmia as indication for cardiac pacemaker replacement I49.9 [facility] [place] [address] [place] [address] 82732- 3638 Jul, Post-traumatic stress disorder, unspecified F43.10 ; Major depressive disorder, recurrent, moderate F33.1 and Problems related to release from halfway Z65.2 [facility] [place] [address] [place] [address] 15678- 7584 09 Jul, 2016 Anxiety F41.9 [facility] [id number] [place] [address] 18825- 5306 08 Jul, 2016 Chronic pain G89.29 [facility] [address] [place] [address] 13906- 7836 02 Jul, 2016 Sleep apnea, obstructive G47.33 ; Hyperlipidemia E78.5 ; Chronic pain G89.29 ; Blindness and low vision H54.10 ; Major depressive disorder, recurrent, moderate F33.1 ; Anxiety F41.9 ; Mitral valve prolapse I34.1 ; Arrhythmia as indication for cardiac pacemaker replacement I49.9 ; Primary insomnia F51.01 ; Bilateral headaches R51 and Environmental allergies Z91.09 [facility] [place] [address] [address]- 0145 Jul, Post-traumatic stress disorder, unspecified F43.10 ; Major depressive disorder, recurrent, moderate F33.1 and Problems related to release from halfway Z65.2 [facility] [place] [address] [address]- 8188 June, Post-traumatic stress disorder, chronic F43.12 ; Anxiety F41.9 ; Problems related to release from halfway Z65.2 ; Sleep apnea, obstructive G47.33 and Primary insomnia F51.01 [facility] [id number] [address]- 4540 June, [facility] [id number] [place] [address] 43008- 0484 June, [facility] [id number] [place] [address] 63421- 0466 June, [facility] [id number] [place] [address] 99829- 6352 June, Chronic pain G89.29 [facility] [id number] [place] [address] 39520- 5049 June, Chronic pain G89.29 [facility] [id number] [place] [address] 06031- 0792 June, Lipoma of left lower extremity D17.24 ; Open wound T14.8 and Swelling of left lower extremity M79.89 [facility] [address] [address]- 1383 June, Post-traumatic stress disorder, unspecified F43.10 ; Major depressive disorder, recurrent, moderate F33.1 and Problems related to release from halfway Z65.2 [facility] [address] [address]- 2646 May, Lipoma of left lower extremity D17.24 ; Major depressive disorder, recurrent, moderate F33.1 ; Sleep apnea, obstructive G47.33 ; Hyperlipidemia E78.5 ; Obesity E66.9 ; HTN (hypertension) I10 ; Glaucoma H40.9 ; CAD (coronary artery disease) I25.10 ; Chronic tension headaches G44.229 ; Chronic pain G89.29 ; Anxiety F41.9 ; Nausea R11.0 and Primary insomnia F51.[address] [place] [address] 74221- 2975 May, [facility] [id number] [place] [address] 23336- 6477 11 May, 2016 Chronic pain G89.29 [place] [id number] [place] [address] 07897- 7852 May, [facility] [place] [address] 33656- 8849 31 Apr, 2016 Post-traumatic stress disorder, unspecified F43.10 ; Major depressive disorder, recurrent, moderate F33.1 and Problems related to release from halfway Z65.2 [place] [id number] [place] [address] 40126- 6853 28 Apr, 2016 Primary insomnia F51.01 ; Post-traumatic stress disorder, chronic F43.12 and Problems related to release from halfway Z65.2 [place] [id number] [place] [address] 18711- 0713 17 Apr, 2016 Post-traumatic stress disorder, unspecified F43.10 ; Major depressive disorder, recurrent, moderate F33.1 and Problems related to release from halfway Z65.2 [place] [id number] [place] [address] 62998- 2402 16 Apr, 2016 [place] [id number] [place] [address] 16589- 1467 16 Apr, 2016 Sleep apnea, obstructive G47.33 ; Chronic pain G89.29 ; HTN (hypertension) I10 ; Mitral valve prolapse I34.1 ; Shoulder pain, left M25.512 ; Arrhythmia as indication for cardiac pacemaker replacement I49.9 ; Glaucoma H40.9 ; Bilateral headaches R51 ; Environmental allergies Z91.09 ; Primary insomnia F51.01 and Nausea R11.0 [place] [id number] [place] [address] 12471- 4883 Apr, [place] [id number] [place] [address] 2546 Apr, [facility] [address] [place] [address] 50603- 7335 Apr, Post-traumatic stress disorder, unspecified F43.10 ; Major depressive disorder, recurrent, moderate F33.1 and Problems related to release from halfway Z65.2 [facility] [address] [place] [address] 38238- 8396 Apr, HTN (hypertension) I10 [facility] [id number] [place] [address] 35604- 6627 Apr, HTN (hypertension) I10 [facility] [id number] [place] [address]- 8042 14 Mar, 2016 Chronic pain G89.29 ; Primary insomnia F51.01 and Problems related to release from halfway Z65.2 [facility] [id number] [place] [address] 41308- 9078 07 Mar, 2016 Post-traumatic stress disorder, unspecified F43.10 ; Major depressive disorder, recurrent, moderate F33.1 and Problems related to release from halfway Z65.2 [place] [address] [place] [address] 05237- 2624 Feb, Post-traumatic stress disorder, unspecified F43.10 ; Major depressive disorder, recurrent, moderate F33.1 and Problems related to release from halfway Z65.2 [facility] [address] [place] [address] 38757- 8062 Feb, Chronic tension headaches G44.229 [facility] [place] [address] [place] [address] 25695- 0037 Feb, Sleep apnea, obstructive G47.33 ; Obesity [...] pacemaker replacement I49.9 and Primary insomnia F51.01 [facility] [id number] [place] [address] 61089- 3373 17 Feb, 2016 Post-traumatic stress disorder, unspecified F43.10 and Chronic pain G89.29 [facility] [id number] [place] [address] 73596- 9719 Feb, [facility] [id number] [place] [address] [id number] Feb, Dental caries K02.9 [facility] [place] [id number] [place] [address] 42785- 8948 Feb, [facility] [id number] [place] [address] 21411- 4806 Feb, Post-traumatic stress disorder, unspecified F43.10 ; Major depressive disorder, recurrent, moderate F33.1 and Problems related to release from halfway Z65.2 [facility] [id number] [place] [address] 80025- 3110 Jan, Sleep apnea, obstructive G47.33 and Chronic pain G89.29 [facility] [id number] [place] [address] 34611- 9818 Jan, [facility] [id number] [place] [address] 76817- 6243 Jan, Dental examination Z01.20 [facility] [address] [place] [address] 15459- 0130 Jan, [facility] [id number] [place] [address] 62633- 2988 Jan, [facility] [address] [place] [address] 87503- 7310 Dec, Post-traumatic stress disorder, unspecified F43.10 ; Major depressive disorder, recurrent, moderate F33.1 and Problems related to release from halfway Z65.2 [facility] [address] [address]- 4001 Dec, Encounter for immunization Z23 ; Problems related to release from halfway Z65.2 ; Sleep apnea, obstructive G47.33 and Post-traumatic stress disorder, chronic F43.12 [facility] [id number] [place] [address] 91934- 3820 Dec, Sleep apnea, obstructive G47.33 ; Hyperlipidemia E78.5 ; Chronic pain G89.29 ; Glaucoma H40.9 ; HTN (hypertension) I10 ; Post-traumatic stress disorder, unspecified F43.10 ; Anxiety F41.9 ; Chronic tension headaches G44.229 ; Mitral valve prolapse I34.1 and CAD (coronary artery disease) I25.10 [facility] [place] [id number] [place] [address] 62921- 4029 Dec, Post-traumatic stress disorder, unspecified F43.10 ; Major depressive disorder, recurrent, moderate F33.1 and Problems related to release from halfway Z65.2 [facility] [id number] [place] [address] 91923- 2819 Nov, Chronic pain G89.29 [facility] [id number] [place] [address] 95656- 0339 Nov, Post-traumatic stress disorder, unspecified F43.10 ; Major depressive disorder, recurrent, moderate F33.1 and Problems related to release from halfway Z65.2 [facility] [address] [place] [address] 86210- 2684 Oct, [facility] [id number] [place] [address] 23762- 4810 Oct, [facility] [id number] [place] [address] 33509- 7348 Oct, Post-traumatic stress disorder, unspecified F43.10 ; Major depressive disorder, recurrent, moderate F33.1 and Problems related to release from halfway Z65.2 [place] [address] [place] [address]- 4604 08 Oct, 2015 [facility] [address] 76604- 7768 07 Oct, 2015 Environmental allergies Z91.09 ; Cough R05 and Open-angle glaucoma of both eyes H40.10X0 [facility] [id number] [place] [address] 06106- 9766 Sep, [facility] [address] 42710- 5127 Sep, Post-traumatic stress disorder, unspecified F43.10 ; Major depressive disorder, recurrent, moderate F33.1 and Problems related to release from halfway Z65.2 [facility] [id number] [place] [address] 16082- 9047 16 Sep, 2015 Chronic pain G89.29 [facility] [address] 54682- 5998 Sep, Pain in left shoulder M25.512 ; Pain in right shoulder M25.511 and Other chronic pain G89.29 [facility] [id number] [place] [address] 53494- 3014 Sep, [facility] [id number] [place] [address] 79532- 4265 Sep, [facility] [id number] [place] [address] 60001- 1719 Sep, [facility] [id number] [place] [address] [place] [address] [id number] Aug, Dental examination Z01.20 [facility] [address] [address]- [address] Aug, Post-traumatic stress disorder, unspecified F43.10 ; Open- angle glaucoma of both eyes H40.10X0 and Problems related to release from halfway Z65.2 [facility] [id number] [place] [address] 97370- 6251 Aug, [facility] [id number] [place] [address] 86647- 6363 Aug, Sleep apnea, obstructive G47.33 ; Obesity E66.9 ; Hyperlipidemia E78.5 ; Bilateral headaches R51 ; HTN (hypertension) I10 ; Post- traumatic stress disorder, unspecified F43.10 ; Anxiety F41.9 ; Neuropathy G62.9 ; Glaucoma H40.9 and Chronic pain G89.29 [facility] [id number] [place] [address] [id number] Aug, Encounter for dental examination Z01.20 [facility] [id number] [place] [address] 35973- 9315 Aug, Post-traumatic stress disorder, unspecified F43.10 ; Major depressive disorder, recurrent, moderate F33.1 and Problems related to release from halfway Z65.2 [facility] [id number] [place] [address] 30582- 5871 Aug, [facility] [id number] [place] [address] 60276- 2488 Jul, [facility] [id number] [place] [address] 32020- 6271 Jul, Post-traumatic stress disorder, unspecified F43.10 and Major depressive disorder, recurrent, moderate F33.1 [facility] [id number] [place] [address] 61020- 1220 Jul, [facility] [id number] [place] [address] 52608- 6472 Jul, [facility] [id number] [place] [address] 76852- 0597 Jul, Chronic pain G89.29 [facility] [id number] [place] [address] 94651- 5457 June, Post-traumatic stress disorder, unspecified F43.10 and Major depressive disorder, recurrent, moderate F33.1 [facility] [id number] [place] [address] 46432- 7876 June, [facility] [id number] [place] [address] 58725- 2843 June, Chronic pain G89.29 [facility] [id number] [place], [place] [address] June, Post-traumatic stress disorder, unspecified F43.10 and Major depressive disorder, recurrent, moderate F33.1 [facility] [id number] [place] [address] 59325- 3274 May, Post-traumatic stress disorder, unspecified F43.10 and Major depressive disorder, recurrent, moderate F33.1 [facility] [id number] [place] [address] 18442- 4420 May, [facility] [id number] [place] [address] 90269- 8641 May, [facility] [id number] [place] [address] 84800- 7467 May, [facility] [id number] [place] [address] 89673- 0520 Apr, [facility] [id number] [place] [address] 44080- 8354 Apr, Post-traumatic stress disorder, unspecified F43.10 and Sleep apnea, obstructive G47.33 [facility] [id number] [place] [address] 11212- 5562 Apr, [facility] [id number] [place] [address] 21076- 3475 Apr, Shoulder pain, left M25.512 [facility] [id number] [place] [address] 73651- 2297 Apr, Post-traumatic stress disorder, unspecified F43.10 and Major depressive disorder, recurrent, moderate F33.1 [facility] [id number] [place] [address] 33987- 6009 Apr, [facility] [id number] [address] 4164 Apr, [facility] [id number] [place] [address] 28478- 4718 Apr, [facility] [id number] [place] [address] 88609- 5340 Apr, Left shoulder pain M25.512 [facility] [id number] [place] [address] 55949- 5798 Mar, [facility] [id number] [place] [address] 69311- 5680 Mar, [facility] [id number] [place] [address] 37382- 6924 Mar, [facility] [id number] [place] [address] 55755- 1723 Mar, Sleep apnea, obstructive G47.33 ; Obesity E66.9 ; Chronic pain G89.29 ; Hyperlipidemia E78.5 ; HTN (hypertension) I10 ; Blindness and low vision H54.10 ; Major depressive disorder, recurrent, moderate F33.1 and Anxiety F41.9 [facility] [id number] [address]- 3956 Mar, [facility] [id number] [place] [address] 19668- 8845 Mar, Post-traumatic stress disorder, unspecified F43.10 and Major depressive disorder, recurrent, moderate F33.1 [facility] [id number] [address]- 1045 Mar, [facility] [id number] [place] [address] 12727- 0891 04 Mar, 2015 HTN (hypertension) I10 ; Blindness and low vision H54.10 ; Obesity E66.9 ; Hyperlipidemia E78.5 ; Glaucoma H40.9 ; Chronic pain G89.29 and CAD (coronary artery disease) I25.10 [facility] [id number] [place] [address] 02335- 4039 Feb, [address] 85039- 2528 Feb, Post-traumatic stress disorder, unspecified F43.10 ; Obesity E66.9 ; Sleep apnea, obstructive G47.33 and Open-angle glaucoma of both eyes H40.10X0 [address] 92403- 6293 Feb, Post-traumatic stress disorder, unspecified F43.10 and Major depressive disorder, recurrent, moderate F33.[address] 17843- 7528 Feb, [address] 43400- 8535 Feb, [address] 95680- 0908 Feb, HTN (hypertension) I10 ; Post-traumatic stress disorder, unspecified F43.10 ; Blindness and low vision H54.10 ; Obesity E66.9 ; Hyperlipidemia E78.5 ; Chronic pain G89.29 ; Glaucoma H40.9 ; Mitral valve prolapse I34.1 and Bilateral headaches R51 [place] [id number] [place] [address] 10977- 4865 Feb, [address] 20135- 1378 Feb, Post-traumatic stress disorder, unspecified F43.10 and Major depressive disorder, recurrent, moderate F33.1 [facility] [place] [id number] [place] [address] 22832- 0528 Feb, [facility] [id number] [place] [address] 70442- 0332 Feb, [address] [id number]- 5795 Jan, [facility] [address]504[address]- 8938 Jan, [facility] [address] [place] [address]- 3251 Jan, Obesity E66.9 ; HTN (hypertension) I10 ; Blindness and low vision H54.10 ; Major depressive disorder, recurrent, moderate F33.1 ; Glaucoma H40.9 ; Hyperlipidemia E78.5 ; Sleep apnea, obstructive G47.33 ; Chronic pain G89.29 ; Anxiety F41.9 ; Chronic tension headaches G44.229 and Cough R05 [facility] [address] 7504[address]- 6043 Jan, [facility] [address] 750435- 3253 Jan, [facility] [address]50433- 7285 Jan, Post-traumatic stress disorder, unspecified F43.10 ; Obesity E66.9 ; Sleep apnea, obstructive G47.33 and Open-angle glaucoma of both eyes H40.10X0 [facility] [id number] [place] [address]- 3026 Jan, [facility] [id number] [place] [address] Jan, Post-traumatic stress disorder, unspecified F43.10 and Major depressive disorder, recurrent, moderate F33.1 [facility] [id number] [place] [address] 67153- 6351 Dec, [facility] [address] 750437- 1694 Dec, Sleep apnea, obstructive G47.33 ; Obesity E66.9 ; Hyperlipidemia E78.5 ; Glaucoma H40.9 ; Chronic pain G89.29 ; HTN (hypertension ) I10 ; Blindness and low vision H54.10 ; Anxiety F41.9 and CAD (coronary artery disease) I25.10 [facility] [id number] [address]- 0166 Nov, [facility] [id number] [place] [address] 83879- 2700 Nov, [facility] [id number] [place] [address] 06363- 1524 Nov, [facility] [id number] [place] [address] 88021- 2099 Nov, [facility] [id number] [place] [address] 47821- 5350 Nov, [facility] [id number] [place] [address] 38096- 3252 Nov, Encounter for immunization Z23 ; Sleep apnea, obstructive G47.33 ; Obesity E66.9 ; Hyperlipidemia E78.5 ; Glaucoma H40.9 ; Chronic pain G89.29 ; Anxiety F41.9 ; Chronic tension headaches G44.229 and HTN (hypertension ) I10 [facility] [id number] [place] [address] 89626- 9756 Nov, [facility] [id number] [place] [address] 94266- 4077 Nov, [facility] [id number] [place] [address] 37244- 4484 Nov, Dizziness R42 [facility] [id number] [place] [address] 78908- 3958 Nov, [facility] [id number] [place] [address] 90205- 7938 Oct, [facility] [id number] [place] [address] 42344- 8396 28 Oct, 2014 [facility] [id number] [place] [address] 22017- 7911 Oct, [facility] [id number] [place] [address] 76910- 7961 Oct, [facility] [address] 55211- 8726 Oct, Dizziness 780.4 ; Essential hypertension 401.9 ; Obesity 278.00 ; Hyperlipidemia 272.4 ; Chronic pain 338.29 ; Glaucoma 365.9 and Anxiety 300.00 [facility] [address] 91370- 0122 Oct, Essential hypertension 401.9 ; Hyperlipidemia 272.4 ; Glaucoma 365.9 ; Obesity 278.00 ; Chronic pain 338.29 and Allergy to insects V15.06 [facility] [address] 08626- 0547 Sep, [facility] [address] 96146- 8217 Sep, [facility] [address] 86606- 2204 Sep, [facility] [address] 88662- 3046 Sep, [address] 49868- 5441 Aug, Essential hypertension 401.9 ; Obesity 278.00 ; Hyperlipidemia 272.4 ; Glaucoma 365.9 ; Lipoma 214.9 ; Mitral valve prolapse 424.0 ; Angina at rest 413.9 ; Lymphedema 457.1 and Chronic pain 338.29 IMMUNIZATIONS No Known Immunizations SOCIAL HISTORY Never Assessed REASON FOR VISIT Controlled Med Refill PLAN OF CARE VITAL SIGNS MEDICATIONS Unknown [...]
--- OUTSIDE RECORDS SUMMARY | 2018-02-04 15:21 | XMS REPORT ---
Author Author CJ EDGE Organization [facility] Address [address] [place] [address] Care Team Providers Care Plasma Table Operator Name Role Phone CJ EDGE Unavailable PROBLEMS Type Condition ICD9-CM Code JLU38-KP Code Onset Dates Condition Status SNOMED Code Problem Arrhythmia as indication for cardiac pacemaker replacement I49.9 Active 41043208 Problem Body mass index (BMI) of 40.0-44.9 in adult Z68.41 Active 221916515 Problem Primary insomnia F51.01 Active 9980312 Problem Sarcoidosis D86.9 Active 68299787 Problem Chronic pain G89.29 Active 23249595 Problem Chronic pain syndrome G89.4 Active 193492999 Problem Sleep apnea, obstructive G47.33 Active 05761797 Problem Hyperlipidemia E78.5 Active 80133706 Problem Other male erectile dysfunction N52.8 Active 493793361 Problem Morbid (severe) obesity due to excess calories E66.01 Active 896596950 Problem Migraine without aura and without status migrainosus, not intractable G43.009 Active 606598514 Problem 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 Active 334251672 Problem Chronic tension headaches G44.229 Active 184952319 Problem Anxiety F41.9 Active 99511541 Problem HTN (hypertension) I10 Active 28921246 Problem Blindness and low vision H54.10 Active 938432862 Problem Mitral valve prolapse I34.1 Active 611139603 Problem CAD (coronary artery disease) I25.10 Active 77285557 Problem Major depressive disorder, recurrent, moderate F33.1 Active 34241099 Problem Post-traumatic stress disorder, chronic F43.12 Active 340199892 Problem Myocarditis, unspecified chronicity, 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 Active 83778386 Problem Open-angle glaucoma of both eyes H40.10X0 Active 59038555 Problem Environmental allergies Z91.09 Active 790452216 ALLERGIES No Information ENCOUNTERS Encounter Location Date Diagnosis [facility] [id number] [address] Aug, [facility] [address] [address] Jul, [facility] [address] [address] Jul, [facility] [id number] [place] [address] 08209- 9812 Jul, Sarcoidosis D86.9 [facility] [id number] [place] [address] 61883- 9135 Jul, Left leg pain M79.605 [facility] [id number] [place] [address] 69240- 4717 Jul, Sarcoidosis D86.9 [facility] [address] [address] Jul, Post-traumatic stress disorder, unspecified F43.10 ; Major depressive disorder, recurrent, moderate F33.1 and Problems related to release from detention Z65.2 [facility] [address] [address] June, [facility] [id number] [address] June, Sore throat J02.9 and BMI 40.0-44.9, adult Z68.41 [facility] [address] [address] June, [facility] [address] [address] June, [facility] [address] [address] June, [facility] [address] [address] 0[address] June, Left leg pain M79.605 [facility] [id number] [address] June, Sarcoidosis D86.9 [facility] [id number] [place] [address] 55634- 9948 June, [facility] [id number] [place] [address] 82336- 5196 June, [facility] [id number] [place] [address] 90018- 9910 June, Left leg pain M79.605 [facility] [id number] [place] [address] 23569- 4939 May, [facility] [id number] [place] [address] 76070- 1814 May, [facility] [id number] [place] [address] 48090- 6093 May, [facility] [id number] [place] [address] 36051- 1138 May, Left leg pain M79.605 [facility] [id number] [place] [address] 12951- 2861 May, Post-traumatic stress disorder, unspecified F43.10 ; Major depressive disorder, recurrent, moderate F33.1 and Problems related to release from detention Z65.2 [facility] [id number] [place] [address] 48123- 8724 May, Chronic pain G89.29 ; Anxiety F41.9 ; Chest pain, unspecified type R07.9 and BMI 40.0-44.9, adult Z68.41 [facility] [id number] [place] [address] 68569- 4586 Apr, [facility] [id number] [place] [address] 60371- 0277 Apr, Left leg pain M79.605 [facility] [id number] [place] [address] 33083- 1922 27 Apr, 2017 Post-traumatic stress disorder, unspecified F43.10 ; Problems related to release from detention Z65.2 ; Anxiety F41.9 and BMI 40.0-44.9 , adult Z68.41 [place] [id number] [place] [address] 21125- 7239 Apr, [place] [address] 68627- 9656 Apr, Left leg pain M79.605 [place] [address] 17534- 6705 13 Apr, 2017 Post-traumatic stress disorder, unspecified F43.10 ; Major depressive disorder, recurrent, moderate F33.1 and Problems related to release from detention Z65.2 [place] [address] 62168- 1670 Apr, [place] [address] 88213- 5285 Apr, Chronic pain G89.29 ; 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 ; Morbid (severe) obesity due to excess calories E66.01 ; Anxiety F41.9 and BMI 40.0-44.9, adult Z68.41 [facility] [id number] [place] [address] 14867 -8691 10 Apr, 2017 Sore throat J02.9 and BMI 40.0-44.9, adult Z68.41 [place] [id number] [place] [address] 95788- 2405 02 Apr, 2017 Left leg pain M79.605 [facility] [address] [id number] Mar, Dental examination Z01.20 [place] [id number] [place] [address] 50360- 7365 Mar, [facility] [address] [place] [address] 25864 -3620 Mar, Cough R05 ; Viral gastroenteritis A08.4 and BMI 40.0-44.9, adult Z68.41 [place] [address] 40769- 2478 Mar, Left leg pain M79.605 [place] [id number] [place] [address] 32645- 1304 Mar, Post-traumatic stress disorder, unspecified F43.10 ; Major depressive disorder, recurrent, moderate F33.1 and Problems related to release from detention Z65.2 [place] [address] 07376- 2671 Feb, Left leg pain M79.605 [place] [address] 73072- 8652 Feb, [place] [address] 32115- 6059 Feb, BMI 40.0-44.9, adult Z68.41 ; Chronic pain syndrome G89.4 ; Migraine without aura and without status migrainosus, not intractable G43.009 ; Mitral valve prolapse I34.1 and 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 [place] [id number] [place] [address] 11919- 4222 Feb, Post-traumatic stress disorder, chronic F43.12 ; Anxiety F41.9 ; Problems related to release from detention Z65.2 and BMI 40.0-44.9, adult Z68.41 [place] [id number] [place] [address] 37243- 9950 Feb, Post-traumatic stress disorder, unspecified F43.10 ; Major depressive disorder, recurrent, moderate F33.1 and Problems related to release from detention Z65.2 [place] [id number] [place] [address] 41341- 2964 Feb, Left leg pain M79.605 [place] [address] 26085- 9045 Jan, Post-traumatic stress disorder, unspecified F43.10 ; Major depressive disorder, recurrent, moderate F33.1 and Problems related to release from detention Z65.2 [facility] [id number] [place] [address] 59952- 0320 Jan, [facility] [address] [address]- 6469 Jan, [facility] [id number] [place] [address] 71428- 7014 Jan, Anxiety F41.9 [facility] [id number] [place] [address] 99943- 4385 Jan, Left leg pain M79.605 [facility] [id number] [place] [address] 83721- 2907 Dec, Left leg pain M79.605 [facility] [id number] [place] [address] 70197- 4595 Dec, [facility] [id number] [place] [address] 80990- 2631 15 Dec, 2016 Post-traumatic stress disorder, unspecified F43.10 ; Major depressive disorder, recurrent, moderate F33.1 and Problems related to release from detention Z65.2 [facility] [address], [place] [address]- [address] Nov, Chronic pain G89.29 and Anxiety F41.9 [facility] [address] [address]- 5684 24 Nov, 2016 Chronic pain G89.29 and Anxiety F41.9 [facility] [id number] [place] [address] 14371- 8870 16 Nov, 2016 Post-traumatic stress disorder, unspecified F43.10 ; Major depressive disorder, recurrent, moderate F33.1 and Problems related to release from detention Z65.2 [facility] [id number] [place] [address] 77037- 2876 09 Nov, 2016 Other abnormal findings in specimens from other organs, systems and tissues R89.8 ; Other male erectile dysfunction N52.8 ; Body mass index (BMI) of 40.0-44.9 in adult Z68.41 and Morbid (severe) obesity due to excess calories E66.01 [place] [id number] [place] [address] 38706- 4437 02 Nov, 2016 Post-traumatic stress disorder, unspecified F43.10 ; Major depressive disorder, recurrent, moderate F33.1 and Problems related to release from detention Z65.2 [facility] [id number] [place] [address] [id number] Oct, Dental examination Z01.20 [place] [id number] [place] [address] 36248- 3077 Oct, [place] [address] 93937- 5481 Oct, Encounter for immunization Z23 [place] [id number] [place] [address] 41611- 0681 Oct, Chronic pain G89.29 ; Anxiety F41.9 ; Arrhythmia as indication for cardiac pacemaker replacement I49.9 and Glaucoma H40.9 [place] [id number] [place] [address] 05876- 5301 Oct, Anxiety F41.9 ; Post-traumatic stress disorder, chronic F43.12 and Problems related to release from detention Z65.2 [facility] [id number] [place] [address] 97471- 0566 Oct, Post-traumatic stress disorder, unspecified F43.10 ; Major depressive disorder, recurrent, moderate F33.1 and Problems related to release from detention Z65.2 [place] [id number] [place] [address] 61274- 3422 Sep, Chronic pain G89.29 and Anxiety F41.9 [place] [address] 68772- 4254 Sep, Post-traumatic stress disorder, unspecified F43.10 ; Major depressive disorder, recurrent, moderate F33.1 and Problems related to release from detention Z65.2 [place] [id number] [place] [address] 65297- 0837 Sep, Post-traumatic stress disorder, unspecified F43.10 ; Major depressive disorder, recurrent, moderate F33.1 and Problems related to release from detention Z65.2 [place] [id number] [place] [address] 28402- 2175 Sep, Chronic pain G89.29 [place] [id number] [place] [address] 81771- 9262 Aug, Dental caries, unspecified K02.9 [place] [id number] [place] [address] 47734- 3900 Aug, Sleep apnea, obstructive G47.33 ; Obesity E66.9 ; Chronic pain G89.29 ; HTN (hypertension) I10 ; Major depressive disorder, recurrent, moderate F33.1 ; Anxiety F41.9 ; Chronic tension headaches G44.229 ; Mitral valve prolapse I34.1 ; Arrhythmia as indication for cardiac pacemaker replacement I49.9 ; Dental caries, unspecified K02.9 ; Primary insomnia F51.01 and Hyperlipidemia E78.5 [place] [address] [address]- 1748 Aug, Post-traumatic stress disorder, unspecified F43.10 ; Major depressive disorder, recurrent, moderate F33.1 and Problems related to release from detention Z65.2 [place] [address], [place] [address]- 4117 Aug, Dental examination Z01.20 [facility] [id number] [place] [address] [id number] Aug, Dental examination Z01.20 [facility] [address] [address]- 5263 Aug, Post-traumatic stress disorder, unspecified F43.10 ; Major depressive disorder, recurrent, moderate F33.1 and Problems related to release from detention Z65.2 [place] [id number] [place] [address] 18249- 7218 Aug, Chronic pain G89.29 and Primary insomnia F51.01 [place] [id number] [place] [address] 25988- 4789 Jul, [place] [address] 17654- 2083 Jul, [place] [id number] [place] [address] 17223- 4502 Jul, Nausea R11.0 [place] [address] 18263- 9921 Jul, Arrhythmia as indication for cardiac pacemaker replacement I49.9 [place] [address] 85117- 3870 Jul, Post-traumatic stress disorder, unspecified F43.10 ; Major depressive disorder, recurrent, moderate F33.1 and Problems related to release from detention Z65.2 [place] [address] 10545- 1578 Jul, Anxiety F41.9 [place] [id number] [place] [address] 29909- 4023 Jul, Chronic pain G89.29 [place] [address] 91442- 1648 Jul, Sleep apnea, obstructive G47.33 ; Hyperlipidemia E78.5 ; Chronic pain G89.29 ; Blindness and low vision H54.10 ; Major depressive disorder, recurrent, moderate F33.1 ; Anxiety F41.9 ; Mitral valve prolapse I34.1 ; Arrhythmia as indication for cardiac pacemaker replacement I49.9 ; Primary insomnia F51.01 ; Bilateral headaches R51 and Environmental allergies Z91.09 [place] [id number] [place] [address] 39255- 1178 Jul, Post-traumatic stress disorder, unspecified F43.10 ; Major depressive disorder, recurrent, moderate F33.1 and Problems related to release from detention Z65.2 [place] [id number] [place] [address] 72811- 3213 June, Post-traumatic stress disorder, chronic F43.12 ; Anxiety F41.9 ; Problems related to release from detention Z65.2 ; Sleep apnea, obstructive G47.33 and Primary insomnia F51.01 [place] [id number] [place] [address] 14817- 8787 June, [place] [id number] [place] [address] 38859- 3941 June, [place] [id number] [place] [address] 13087- 7258 June, [place] [id number] [place] [address] 65373- 2192 June, Chronic pain G89.29 [place] [id number] [place] [address] 36169- 3603 June, Chronic pain G89.29 [place] [id number] [place] [address] 19897- 1190 June, Lipoma of left lower extremity D17.24 ; Open wound T14.8 and Swelling of left lower extremity M79.89 [place] [id number] [place] [address] 89887- 8037 June, Post-traumatic stress disorder, unspecified F43.10 ; Major depressive disorder, recurrent, moderate F33.1 and Problems related to release from detention Z65.2 [place] [id number] [place] [address] 44824- 8971 May, Lipoma of left lower extremity D17.24 ; Major depressive disorder, recurrent, moderate F33.1 ; Sleep apnea, obstructive G47.33 ; Hyperlipidemia E78.5 ; Obesity E66.9 ; HTN (hypertension) I10 ; Glaucoma H40.9 ; CAD (coronary artery disease) I25.10 ; Chronic tension headaches G44.229 ; Chronic pain G89.29 ; Anxiety F41.9 ; Nausea R11.0 and Primary insomnia F51.01 [address] [place] [address] 03488- 4998 May, [place] [id number] [place] [address] 36656- 7221 May, Chronic pain G89.29 [address] [id number] [place] [address] 01654- 2147 May, [place] [address]- 0105 31 Apr, 2016 Post-traumatic stress disorder, unspecified F43.10 ; Major depressive disorder, recurrent, moderate F33.1 and Problems related to release from detention Z65.2 [address] [id number] [place] [address] 61326- 2412 Apr, Primary insomnia F51.01 ; Post-traumatic stress disorder, chronic F43.12 and Problems related to release from detention Z65.2 [address] [id number] [place] [address] 97161- 1475 17 Apr, 2016 Post-traumatic stress disorder, unspecified F43.10 ; Major depressive disorder, recurrent, moderate F33.1 and Problems related to release from detention Z65.2 [place] [id number] [place] [address] 92130- 2651 Apr, [address] [id number] [place] [address] 73550- 2667 Apr, Sleep apnea, obstructive G47.33 ; Chronic pain G89.29 ; HTN (hypertension) I10 ; Mitral valve prolapse I34.1 ; Shoulder pain, left M25.512 ; Arrhythmia as indication for cardiac pacemaker replacement I49.9 ; Glaucoma H40.9 ; Bilateral headaches R51 ; Environmental allergies Z91.09 ; Primary insomnia F51.01 and Nausea R11.0 [id number] [address]- 6959 Apr, [facility] [id number] [place] [address] 64785- 7786 Apr, [place] [id number] [place] [address] 98965- 2500 Apr, Post-traumatic stress disorder, unspecified F43.10 ; Major depressive disorder, recurrent, moderate F33.1 and Problems related to release from detention Z65.2 [place] [id number] [place] [address] 58851- 7245 Apr, HTN (hypertension) I10 [place] [id number] [place] [address] 47635- 2821 Apr, HTN (hypertension) I10 [place] [id number] [place] [address] 56060- 3890 14 Mar, 2016 Chronic pain G89.29 ; Primary insomnia F51.01 and Problems related to release from detention Z65.2 [place] [address] [address]- 7681 07 Mar, 2016 Post-traumatic stress disorder, unspecified F43.10 ; Major depressive disorder, recurrent, moderate F33.1 and Problems related to release from detention Z65.2 [place] [address] [address]- 4692 Feb, Post-traumatic stress disorder, unspecified F43.10 ; Major depressive disorder, recurrent, moderate F33.1 and Problems related to release from detention Z65.2 [place] [address], [place] [address]- 6211 Feb, Chronic tension headaches G44.229 [address] [place] [address] 90962- 8020 Feb, Sleep apnea, obstructive G47.33 ; Obesity [...] replacement I49.9 and Primary insomnia F51.01 [facility] [id number] [place] [address] 52479- 9910 17 Feb, 2016 Post-traumatic stress disorder, unspecified F43.10 and Chronic pain G89.29 [place] [address] 92597- 4569 Feb, [facility] [address] [id number] Feb, Dental caries K02.[address] 71267- 5337 Feb, [address] 52532- 3692 Feb, Post-traumatic stress disorder, unspecified F43.10 ; Major depressive disorder, recurrent, moderate F33.1 and Problems related to release from detention Z65.2 [place] [address] 84966- 9786 Jan, Sleep apnea, obstructive G47.33 and Chronic pain G89.29 [place] [address] 64380- 6699 Jan, [place] [address] 12555- 2900 14 Jan, 2016 Dental examination Z01.20 [place] [address] 29589- 6859 Jan, [place] [address] 50102- 7194 Jan, [place] [address] 43907- 7544 Dec, Post-traumatic stress disorder, unspecified F43.10 ; Major depressive disorder, recurrent, moderate F33.1 and Problems related to release from detention Z65.2 [place] [id number] [place] [address] 58523- 8542 Dec, Encounter for immunization Z23 ; Problems related to release from detention Z65.2 ; Sleep apnea, obstructive G47.33 and Post-traumatic stress disorder, chronic F43.12 [place] [id number] [place] [address] 35671- 8414 Dec, Sleep apnea, obstructive G47.33 ; Hyperlipidemia E78.5 ; Chronic pain G89.29 ; Glaucoma H40.9 ; HTN (hypertension) I10 ; Post-traumatic stress disorder, unspecified F43.10 ; Anxiety F41.9 ; Chronic tension headaches G44.229 ; Mitral valve prolapse I34.1 and CAD (coronary artery disease) I25.10 [place] [id number] [place] [address] 68324- 6131 Dec, Post-traumatic stress disorder, unspecified F43.10 ; Major depressive disorder, recurrent, moderate F33.1 and Problems related to release from detention Z65.2 [place] [id number] [place] [address] 23079- 3067 Nov, Chronic pain G89.29 [place] [id number] [place] [address] 82712- 4527 Nov, Post-traumatic stress disorder, unspecified F43.10 ; Major depressive disorder, recurrent, moderate F33.1 and Problems related to release from detention Z65.2 [place] [id number] [place] [address] 75690- 8689 Oct, [place] [id number] [place] [address] 96773- 6752 Oct, [place] [id number] [place] [address] 76256- 8758 Oct, Post-traumatic stress disorder, unspecified F43.10 ; Major depressive disorder, recurrent, moderate F33.1 and Problems related to release from detention Z65.2 [place] [id number] [place] [address] 56332- 9504 08 Oct, 2015 [facility] [id number] [place] [address] 49988- 2650 07 Oct, 2015 Environmental allergies Z91.09 ; Cough R05 and Open-angle glaucoma of both eyes H40.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 [facility] [id number] [place] [address] 78110- 0008 Sep, [place] [id number] [place] [address] 61932- 8787 Sep, Post-traumatic stress disorder, unspecified F43.10 ; Major depressive disorder, recurrent, moderate F33.1 and Problems related to release from detention Z65.2 [place] [id number] [place] [address] 74985- 7531 16 Sep, 2015 Chronic pain G89.29 [place] [id number] [place] [address] 08251- 3577 Sep, Pain in left shoulder M25.512 ; Pain in right shoulder M25.511 and Other chronic pain G89.29 [facility] [id number] [place] [address] 80305- 1609 Sep, [place] [id number] [place] [address] 90207- 8846 Sep, [facility] [id number] [place] [address] 35890- 4068 Sep, [facility] [id number] [place] [address] [id number] Aug, Dental examination Z01.20 [facility] [id number] [place] [address] 02529- 5494 Aug, Post-traumatic stress disorder, unspecified F43.10 ; Open- angle glaucoma of both eyes H40.10X0 and Problems related to release from detention Z65.2 [facility] [id number] [address] Aug, [facility] [id number] [place] [address] 26380- 0015 Aug, Sleep apnea, obstructive G47.33 ; Obesity E66.9 ; Hyperlipidemia E78.5 ; Bilateral headaches R51 ; HTN (hypertension) I10 ; Post- traumatic stress disorder, unspecified F43.10 ; Anxiety F41.9 ; Neuropathy G62.9 ; Glaucoma H40.9 and Chronic pain G89.29 [facility] [id number] [id number] Aug, Encounter for dental examination Z01.20 [facility] [id number] [place] [address] 42872- 5449 Aug, Post-traumatic stress disorder, unspecified F43.10 ; Major depressive disorder, recurrent, moderate F33.1 and Problems related to release from detention Z65.2 [facility] [id number] [address] Aug, [facility] [id number] [place] [address] 00661- 4083 Jul, [facility] [id number] [place] [address] 14443- 7634 Jul, Post-traumatic stress disorder, unspecified F43.10 and Major depressive disorder, recurrent, moderate F33.1 [facility] [id number] [address] Jul, [facility] [id number] [place] [address] 24076- 7063 Jul, [facility] [id number] [place] [address] 27277- 0306 Jul, Chronic pain G89.29 [facility] [id number] [place] [address] 39383- 2920 June, Post-traumatic stress disorder, unspecified F43.10 and Major depressive disorder, recurrent, moderate F33.1 [facility] [id number] [place] [address] 72118- 9113 June, [facility] [id number] [place] [address] 36759- 1171 June, Chronic pain G89.29 [facility] [id number] [place] [address] 42290- 7491 June, Post-traumatic stress disorder, unspecified F43.10 and Major depressive disorder, recurrent, moderate F33.1 [facility] [id number] [place] [address] 22530- 8484 May, Post-traumatic stress disorder, unspecified F43.10 and Major depressive disorder, recurrent, moderate F33.1 [facility] [id number] [place] [address] 64871- 5648 May, [facility] [id number] [place] [address] 90095- 2329 May, [facility] [id number] [place] [address] 20817- 3538 May, [facility] [id number] [place] [address] 59337- 3021 Apr, [facility] [id number] [place] [address] 37658- 0809 Apr, Post-traumatic stress disorder, unspecified F43.10 and Sleep apnea, obstructive G47.33 [facility] [id number] [place] [address] 78953- 1012 Apr, [facility] [id number] [place] [address] 51186- 7816 Apr, Shoulder pain, left M25.512 [facility] [id number] [place] [address] 64525- 8850 Apr, Post-traumatic stress disorder, unspecified F43.10 and Major depressive disorder, recurrent, moderate F33.1 [facility] [id number] [address] 2075 Apr, [facility] [id number] [place] [address] 34869- 6651 Apr, [facility] [id number] [place] [address] 39433- 1884 Apr, [facility] [id number] [place] [address] 70063- 6218 Apr, Left shoulder pain M25.512 [facility] [id number] [place] [address] 07875- 7558 Mar, [facility] [id number] [place] [address] 90981- 7978 Mar, [facility] [id number] [place] [address] 44729- 6294 Mar, [facility] [id number] [place] [address] 60043- 3481 Mar, Sleep apnea, obstructive G47.33 ; Obesity E66.9 ; Chronic pain G89.29 ; Hyperlipidemia E78.5 ; HTN (hypertension) I10 ; Blindness and low vision H54.10 ; Major depressive disorder, recurrent, moderate F33.1 and Anxiety F41.9 [facility] [id number] [place] [address] 98992- 1635 Mar, [facility] [id number] [place] [address] 31577- 4859 Mar, Post-traumatic stress disorder, unspecified F43.10 and Major depressive disorder, recurrent, moderate F33.1 [facility] [id number] [place] [address] 44924- 5649 Mar, [facility] [id number] [place] [address] 34278- 5255 Mar, HTN (hypertension) I10 ; Blindness and low vision H54.10 ; Obesity E66.9 ; Hyperlipidemia E78.5 ; Glaucoma H40.9 ; Chronic pain G89.29 and CAD (coronary artery disease) I25.10 [facility] [id number] [place] [address] 86349- 9351 Feb, [facility] [id number] [place] [address] 84772- 1308 Feb, Post-traumatic stress disorder, unspecified F43.10 ; Obesity E66.9 ; Sleep apnea, obstructive G47.33 and Open-angle glaucoma of both eyes H40.10X0 [address] 997343- 9336 Feb, Post-traumatic stress disorder, unspecified F43.10 and Major depressive disorder, recurrent, moderate F33.1 [address] [id number] [place] [address] 00372- 6471 Feb, [facility] [id number] [place] [address] 57315- 1065 Feb, [address] [id number] [place] [address] 94052- 2542 Feb, HTN (hypertension) I10 ; Post-traumatic stress disorder, unspecified F43.10 ; Blindness and low vision H54.10 ; Obesity E66.9 ; Hyperlipidemia E78.5 ; Chronic pain G89.29 ; Glaucoma H40.9 ; Mitral valve prolapse I34.1 and Bilateral headaches R51 [facility] [id number] [place] [address] 84573- 6727 Feb, [address] [place] [id number] [place] [address] 02591- 4669 Feb, Post-traumatic stress disorder, unspecified F43.10 and Major depressive disorder, recurrent, moderate F33.1 [id number] [place] [address] 52370- 6610 Feb, [id number] [place] [address] 97530- 2947 Feb, [facility] [id number] [place] [address] 14458- 5740 Jan, [facility] [id number] [place] [address] 59114- 0252 Jan, [address] [address] 90892- 8839 Jan, Obesity E66.9 ; HTN (hypertension) I10 ; Blindness and low vision H54.10 ; Major depressive disorder, recurrent, moderate F33.1 ; Glaucoma H40.9 ; Hyperlipidemia E78.5 ; Sleep apnea, obstructive G47.33 ; Chronic pain G89.29 ; Anxiety F41.9 ; Chronic tension headaches G44.229 and Cough R05 [facility] [id number] [place] [address] 50257- 6415 Jan, [facility] [id number] [place] [address] 28893- 5370 Jan, [facility] [id number] [place] [address] 15553- 6215 Jan, Post-traumatic stress disorder, unspecified F43.10 ; Obesity E66.9 ; Sleep apnea, obstructive G47.33 and Open-angle glaucoma of both eyes H40.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 [id number] [place] [address] 12658- 9598 Jan, [facility] [id number] [place] [address] 49301- 3965 Jan, Post-traumatic stress disorder, unspecified F43.10 and Major depressive disorder, recurrent, moderate F33.1 [id number] [place] [address] 97461- 1967 Dec, [facility] [id number] [place] [address] 00201- 1719 Dec, Sleep apnea, obstructive G47.33 ; Obesity E66.9 ; Hyperlipidemia E78.5 ; Glaucoma H40.9 ; Chronic pain G89.29 ; HTN (hypertension ) I10 ; Blindness and low vision H54.10 ; Anxiety F41.9 and CAD (coronary artery disease) I25.10 [facility] [id number] [place] [address] 73153- 6700 Nov, [facility] [address] 16135- 7918 Nov, [facility] [address] 36976- 5958 Nov, [facility] [address] [place] [address] 75201- 7324 Nov, [facility] [address] 03068- 3573 Nov, [address] 59795- 0644 Nov, Encounter for immunization Z23 ; Sleep apnea, obstructive G47.33 ; Obesity E66.9 ; Hyperlipidemia E78.5 ; Glaucoma H40.9 ; Chronic pain G89.29 ; Anxiety F41.9 ; Chronic tension headaches G44.229 and HTN (hypertension ) I10 [facility] [address] [place], [place] [id number] [place] [address] 88631- 1332 Nov, [address] 31649- 5462 Nov, [facility] [address] [place], [place] [id number] [place] [address] 12748- 9898 Nov, Dizziness R42 [facility] [address] [place] [address] 23211- 2030 Nov, [facility] [id number] [place] [address] 99769- 3353 Oct, [facility] [address] [place] [address] 08979- 1654 Oct, [facility] [id number] [place] [address] 77867- 9612 Oct, [place] [facility] [address] 14550- 7275 Oct, [facility] [id number] [place] [address] 58479- 1732 Oct, Dizziness 780.4 ; Essential hypertension 401.9 ; Obesity 278.00 ; Hyperlipidemia 272.4 ; Chronic pain 338.29 ; Glaucoma 365.9 and Anxiety 300.00 [place] [facility] [id number] [place] [address] 58103- 9240 Oct, Essential hypertension 401.9 ; Hyperlipidemia 272.4 ; Glaucoma 365.9 ; Obesity 278.00 ; Chronic pain 338.29 and Allergy to insects V15.06 [facility] [id number] [place] [address] 53103- 2062 Sep, [place] [facility] [address] 48293- 9725 Sep, [facility] [id number] [place] [address] 54337- 7698 Sep, [facility] [id number] [place] [address] 38157- 9306 Sep, [facility] [id number] [place] [address] 47959- 4326 Aug, Essential hypertension 401.9 ; Obesity 278.00 [...] patient &/family, 45 minutes, established patient Feb 03, 2017 INSTRUCTIONS MEDICATIONS ADMINISTERED No Known Medications [...]
--- OUTSIDE RECORDS SUMMARY | 2018-02-04 15:21 | XMS REPORT ---
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 Name Role Phone EMMA BERGERA Unavailable PROBLEMS Type Condition ICD9-CM Code GGB46-PK Code Onset Dates Condition Status SNOMED Code Problem Environmental allergies Z91.09 Active 134945183 Problem Primary insomnia F51.01 Active 5959694 Problem Arrhythmia as indication for cardiac pacemaker replacement I49.9 Active 54149849 Problem Chronic pain syndrome G89.4 Active 220271286 Problem Sleep apnea, obstructive G47.33 Active 55445427 Problem Migraine without aura and without status migrainosus, not intractable G43.009 Active 686693386 Problem Hyperlipidemia E78.5 Active 78675669 Problem Myocarditis, unspecified chronicity, 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 Active 13991702 Problem Other male erectile dysfunction N52.8 Active 769522923 Problem Morbid (severe) obesity due to excess calories E66.01 Active 197560775 Problem 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 Active 171453430 Problem Body mass index (BMI) of 40.0-44.9 in adult Z68.41 Active 207990922 Problem Blindness and low vision H54.10 Active 109249625 Problem Chronic tension headaches G44.229 Active 346933043 Problem Chronic pain G89.29 Active 40480816 Problem HTN (hypertension) I10 Active 16453314 Problem Open-angle glaucoma of both eyes H40.10X0 Active 52645757 Problem Mitral valve prolapse I34.1 Active 411287865 Problem Anxiety F41.9 Active 17678036 Problem CAD (coronary artery disease) I25.10 Active 00492021 Problem Major depressive disorder, recurrent, moderate F33.1 Active 67871657 Problem Post-traumatic stress disorder, chronic F43.12 Active 818801640 ALLERGIES No Information ENCOUNTERS Encounter Location Date Diagnosis [facility] [address] [facility] [id number] [address] Jul, [facility] [id number] [place] [address] 97367- 3962 May, [facility] [id number] [place] [address] 88732- 0872 May, Chronic pain G89.29 ; Anxiety F41.9 and Chest pain, unspecified type R07.9 [facility] [id number] [place] [address] 47248- 3192 30 Apr, 2017 [facility] [id number] [place] [address] 60846- 7581 29 Apr, 2017 Left leg pain M79.605 [facility] [id number] [place] [address] 27095- 6005 27 Apr, 2017 Post-traumatic stress disorder, unspecified F43.10 ; Problems related to release from mcfp Z65.2 ; Anxiety F41.9 and BMI 40.0-44.9 , adult Z68.41 [facility] [id number] [place] [address] 98890- 6396 22 Apr, 2017 [facility] [id number] [place] [address] 06631- 5874 19 Apr, 2017 Left leg pain M79.605 [facility] [id number] [place] [address] 52696- 6531 13 Apr, 2017 Post-traumatic stress disorder, unspecified F43.10 ; Major depressive disorder, recurrent, moderate F33.1 and Problems related to release from mcfp Z65.2 [place] [id number] [place] [address] 17035- 5157 Apr, [facility] [id number] [place] [address] 97530- 2033 12 Apr, 2017 Chronic pain G89.29 ; 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 ; Morbid (severe) obesity due to excess calories E66.01 ; Anxiety F41.9 and BMI 40.0-44.9, adult Z68.41 [facility] [id number] [place] [address] 78761 -2336 Apr, Sore throat J02.9 and BMI 40.0-44.9, adult Z68.41 [place] [address] 15666- 5267 Apr, Left leg pain M79.605 [facility] [address] [id number] Mar, Dental examination Z01.20 [place] [address] 14598- 8015 Mar, [facility] [address] 98502 -6839 Mar, Cough R05 ; Viral gastroenteritis A08.4 and BMI 40.0-44.9, adult Z68.41 [place] [address] 80389- 1089 Mar, Left leg pain M79.605 [place] [address] 34976- 5666 06 Mar, 2017 Post-traumatic stress disorder, unspecified F43.10 ; Major depressive disorder, recurrent, moderate F33.1 and Problems related to release from mcfp Z65.2 [place] [address] 80905- 8957 Feb, Left leg pain M79.605 [place] [address] 63418- 4933 Feb, [facility] [address] 86812- 0299 Feb, BMI 40.0-44.9, adult Z68.41 ; Chronic pain syndrome G89.4 ; Migraine without aura and without status migrainosus, not intractable G43.009 ; Mitral valve prolapse I34.1 and 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 [place] [address] 08221- 2447 Feb, Post-traumatic stress disorder, chronic F43.12 ; Anxiety F41.9 ; Problems related to release from mcfp Z65.2 and BMI 40.0-44.9, adult Z68.41 [facility] [id number] [place] [address] 37477- 8711 Feb, Post-traumatic stress disorder, unspecified F43.10 ; Major depressive disorder, recurrent, moderate F33.1 and Problems related to release from mcfp Z65.2 [facility] [id number] [place] [address] 39617- 9916 Feb, Left leg pain M79.605 [facility] [id number] [place] [address] 88334- 0411 Jan, Post-traumatic stress disorder, unspecified F43.10 ; Major depressive disorder, recurrent, moderate F33.1 and Problems related to release from mcfp Z65.2 [facility] [id number] [place] [address] 01878- 4252 Jan, [facility] [id number] [place] [address] 02441- 6781 Jan, [facility] [id number] [place] [address] 27480- 1806 Jan, Anxiety F41.9 [facility] [id number] [place] [address] 71632- 6833 Jan, Left leg pain M79.605 [facility] [id number] [place] [address] 53176- 0596 Dec, Left leg pain M79.605 [facility] [id number] [place] [address] 28373- 8636 Dec, [facility] [id number] [place] [address] 23979- 1336 15 Dec, 2016 Post-traumatic stress disorder, unspecified F43.10 ; Major depressive disorder, recurrent, moderate F33.1 and Problems related to release from mcfp Z65.2 [facility] [id number] [place] [address] 86635- 7125 31 Nov, 2016 Chronic pain G89.29 and Anxiety F41.9 [facility] [id number] [place] [address] 24314- 0439 24 Nov, 2016 Chronic pain G89.29 and Anxiety F41.9 [place] [id number] [place] [address] 02263- 2288 16 Nov, 2016 Post-traumatic stress disorder, unspecified F43.10 ; Major depressive disorder, recurrent, moderate F33.1 and Problems related to release from mcfp Z65.2 [place] [id number] [place] [address] 95948- 0189 09 Nov, 2016 Other abnormal findings in specimens from other organs, systems and tissues R89.8 ; Other male erectile dysfunction N52.8 ; Body mass index (BMI) of 40.0-44.9 in adult Z68.41 and Morbid (severe) obesity due to excess calories E66.01 [place] [id number] [place] [address] 82478- 2482 02 Nov, 2016 Post-traumatic stress disorder, unspecified F43.10 ; Major depressive disorder, recurrent, moderate F33.1 and Problems related to release from mcfp Z65.2 [facility] [id number] [place] [address] [id number] 29 Oct, 2016 Dental examination Z01.20 [facility] [place] [id number] [place] [address] 59349- 2247 28 Oct, 2016 [place] [id number] [place] [address] 46468- 5644 Oct, Encounter for immunization Z23 [place] [id number] [place] [address] 68077- 5975 26 Oct, 2016 Chronic pain G89.29 ; Anxiety F41.9 ; Arrhythmia as indication for cardiac pacemaker replacement I49.9 and Glaucoma H40.9 [address] [address] Oct, Anxiety F41.9 ; Post-traumatic stress disorder, chronic F43.12 and Problems related to release from mcfp Z65.2 [facility] [id number] [place] [address] 17945- 3178 07 Oct, 2016 Post-traumatic stress disorder, unspecified F43.10 ; Major depressive disorder, recurrent, moderate F33.1 and Problems related to release from mcfp Z65.2 [facility] [id number] [place] [address] 71062- 4648 Sep, Chronic pain G89.29 and Anxiety F41.9 [facility] [place] [id number] [place] [address] 47058- 4177 Sep, Post-traumatic stress disorder, unspecified F43.10 ; Major depressive disorder, recurrent, moderate F33.1 and Problems related to release from mcfp Z65.2 [facility] [place] [id number] [place] [address] 42218- 0680 Sep, Post-traumatic stress disorder, unspecified F43.10 ; Major depressive disorder, recurrent, moderate F33.1 and Problems related to release from mcfp Z65.2 [facility] [place] [id number] [place] [address] 27703- 1395 Sep, Chronic pain G89.29 [facility] [id number] [place] [address] 39793- 9905 Aug, Dental caries, unspecified K02.9 [place] [id number] [place] [address] 40068- 8149 Aug, Sleep apnea, obstructive G47.33 ; Obesity E66.9 ; Chronic pain G89.29 ; HTN (hypertension) I10 ; Major depressive disorder, recurrent, moderate F33.1 ; Anxiety F41.9 ; Chronic tension headaches G44.229 ; Mitral valve prolapse I34.1 ; Arrhythmia as indication for cardiac pacemaker replacement I49.9 ; Dental caries, unspecified K02.9 ; Primary insomnia F51.01 and Hyperlipidemia E78.5 [facility] [id number] [place] [address] 74097- 5298 Aug, Post-traumatic stress disorder, unspecified F43.10 ; Major depressive disorder, recurrent, moderate F33.1 and Problems related to release from mcfp Z65.2 [facility] [id number] [place] [address] 18131- 7372 Aug, Dental examination Z01.20 [facility] [id number] [place] [address] [id number] Aug, Dental examination Z01.20 [facility] [id number] [place] [address] 078251- 4165 06 Aug, 2016 Post-traumatic stress disorder, unspecified F43.10 ; Major depressive disorder, recurrent, moderate F33.1 and Problems related to release from mcfp Z65.2 [place] [id number] [place] [address] 94044- 3085 Aug, Chronic pain G89.29 and Primary insomnia F51.01 [facility] [id number] [place] [address] 78040- 2711 Jul, [facility] [id number] [place] [address] 21215- 5503 Jul, [place] [id number] [place] [address] 18368- 1737 Jul, Nausea R11.0 [facility] [id number] [place] [address] 98663- 5327 Jul, Arrhythmia as indication for cardiac pacemaker replacement I49.9 [facility] [id number] [place] [address] 77168- 1759 Jul, Post-traumatic stress disorder, unspecified F43.10 ; Major depressive disorder, recurrent, moderate F33.1 and Problems related to release from mcfp Z65.2 [facility] [id number] [place] [address] 55088- 0451 Jul, Anxiety F41.9 [facility] [place] [id number] [place] [address] 17507- 6465 08 Jul, 2016 Chronic pain G89.29 [place] [place] [id number] [place] [address] 03372- 3942 Jul, Sleep apnea, obstructive G47.33 ; Hyperlipidemia E78.5 ; Chronic pain G89.29 ; Blindness and low vision H54.10 ; Major depressive disorder, recurrent, moderate F33.1 ; Anxiety F41.9 ; Mitral valve prolapse I34.1 ; Arrhythmia as indication for cardiac pacemaker replacement I49.9 ; Primary insomnia F51.01 ; Bilateral headaches R51 and Environmental allergies Z91.09 [facility] [place] [id number] [place] [address] 40376- 1712 Jul, Post-traumatic stress disorder, unspecified F43.10 ; Major depressive disorder, recurrent, moderate F33.1 and Problems related to release from mcfp Z65.2 [place] [address] 75615- 1432 June, Post-traumatic stress disorder, chronic F43.12 ; Anxiety F41.9 ; Problems related to release from mcfp Z65.2 ; Sleep apnea, obstructive G47.33 and Primary insomnia F51.01 [facility] [place] [id number] [place] [address] 31322- 2735 June, [facility] [id number] [place] [address] 08849- 4270 June, [facility] [id number] [place] [address] 05798- 7390 June, [facility] [id number] [place] [address] 55703- 1753 June, Chronic pain G89.29 [facility] [place] [id number] [place] [address] 91569- 2884 June, Chronic pain G89.29 [facility] [address] 81908- 6233 June, Lipoma of left lower extremity D17.24 ; Open wound T14.8 and Swelling of left lower extremity M79.89 [facility] [id number] [place] [address] 56258- 4173 June, Post-traumatic stress disorder, unspecified F43.10 ; Major depressive disorder, recurrent, moderate F33.1 and Problems related to release from mcfp Z65.2 [place] [address] 72219- 8946 May, Lipoma of left lower extremity D17.24 ; Major depressive disorder, recurrent, moderate F33.1 ; Sleep apnea, obstructive G47.33 ; Hyperlipidemia E78.5 ; Obesity E66.9 ; HTN (hypertension) I10 ; Glaucoma H40.9 ; CAD (coronary artery disease) I25.10 ; Chronic tension headaches G44.229 ; Chronic pain G89.29 ; Anxiety F41.9 ; Nausea R11.0 and Primary insomnia F51.01 [place] [address] 17912- 7902 May, [facility] [address] 18991- 1517 May, Chronic pain G89.29 [place] [id number] [place] [address] 96057- 9221 May, [facility] [id number] [place] [address] 25801- 9059 Apr, Post-traumatic stress disorder, unspecified F43.10 ; Major depressive disorder, recurrent, moderate F33.1 and Problems related to release from mcfp Z65.2 [place] [address] 05391- 5908 Apr, Primary insomnia F51.01 ; Post-traumatic stress disorder, chronic F43.12 and Problems related to release from mcfp Z65.2 [place] [id number] [place] [address] 62068- 1098 Apr, Post-traumatic stress disorder, unspecified F43.10 ; Major depressive disorder, recurrent, moderate F33.1 and Problems related to release from mcfp Z65.2 [facility] [place] [id number] [place] [address] 83036- 9909 16 Apr, 2016 [place] [place] [id number] [place] [address] 89287- 6081 16 Apr, 2016 Sleep apnea, obstructive G47.33 ; Chronic pain G89.29 ; HTN (hypertension) I10 ; Mitral valve prolapse I34.1 ; Shoulder pain, left M25.512 ; Arrhythmia as indication for cardiac pacemaker replacement I49.9 ; Glaucoma H40.9 ; Bilateral headaches R51 ; Environmental allergies Z91.09 ; Primary insomnia F51.01 and Nausea R11.0 [place] [id number] [place] [address] 26919- 0164 15 Apr, 2016 [place] [address] 10475- 3441 Apr, [facility] [id number] [place] [address] 53993- 5232 Apr, Post-traumatic stress disorder, unspecified F43.10 ; Major depressive disorder, recurrent, moderate F33.1 and Problems related to release from mcfp Z65.2 [facility] [place] [id number] [place] [address] 68078- 3871 07 Apr, 2016 HTN (hypertension) I10 [facility] [place] [id number] [place] [address] 60676- 6746 07 Apr, 2016 HTN (hypertension) I10 [place] [id number] [place] [address] 55190- 3418 14 Mar, 2016 Chronic pain G89.29 ; Primary insomnia F51.01 and Problems related to release from mcfp Z65.2 [place] [address] [place] [address] 06895- 0804 07 Mar, 2016 Post-traumatic stress disorder, unspecified F43.10 ; Major depressive disorder, recurrent, moderate F33.1 and Problems related to release from mcfp Z65.2 [facility] [id number] [place] [address] 33216- 4726 Feb, Post-traumatic stress disorder, unspecified F43.10 ; Major depressive disorder, recurrent, moderate F33.1 and Problems related to release from mcfp Z65.2 [facility] [place] [id number] [place] [address] 32975- 8686 Feb, Chronic tension headaches G44.229 [facility] [place] [id number] [place] [address] 84375- 0337 17 Feb, 2016 Sleep apnea, obstructive G47.33 [...] pacemaker replacement I49.9 and Primary insomnia F51.01 [facility] [place] [id number] [place] [address] 84619- 8219 Feb, Post-traumatic stress disorder, unspecified F43.10 and Chronic pain G89.29 [place] [id number] [place] [address] 13829- 6061 Feb, [facility] [id number] [place] [address] [id number] Feb, Dental caries K02.9 [place] [id number] [place] [address] 20496- 6215 Feb, [facility] [place] [id number] [place] [address] 33143- 1698 Feb, Post-traumatic stress disorder, unspecified F43.10 ; Major depressive disorder, recurrent, moderate F33.1 and Problems related to release from mcfp Z65.2 [facility] [place] [id number] [place] [address] 69498- 5588 Jan, Sleep apnea, obstructive G47.33 and Chronic pain G89.29 [facility] [address] [address]- 2556 Jan, [facility] [id number] [place] [address] 84298- 5390 14 Jan, 2016 Dental examination Z01.20 [facility] [id number] [place] [address] 72568- 5759 09 Jan, 2016 [place] [id number] [place] [address] 05556- 6783 Jan, [place] [id number] [place] [address] 51024- 6532 29 Dec, 2015 Post-traumatic stress disorder, unspecified F43.10 ; Major depressive disorder, recurrent, moderate F33.1 and Problems related to release from mcfp Z65.2 [place] [id number] [place] [address] 03026- 2876 29 Dec, 2015 Encounter for immunization Z23 ; Problems related to release from mcfp Z65.2 ; Sleep apnea, obstructive G47.33 and Post-traumatic stress disorder, chronic F43.12 [address] [place] [address] 83777- 9977 18 Dec, 2015 Sleep apnea, obstructive G47.33 ; Hyperlipidemia E78.5 ; Chronic pain G89.29 ; Glaucoma H40.9 ; HTN (hypertension) I10 ; Post-traumatic stress disorder, unspecified F43.10 ; Anxiety F41.9 ; Chronic tension headaches G44.229 ; Mitral valve prolapse I34.1 and CAD (coronary artery disease) I25.10 [address] [place] [address] 12796- 3981 15 Dec, 2015 Post-traumatic stress disorder, unspecified F43.10 ; Major depressive disorder, recurrent, moderate F33.1 and Problems related to release from mcfp Z65.2 [place] [id number] [place] [address] 98677- 5442 Nov, Chronic pain G89.29 [place] [address] [address]- 3559 Nov, Post-traumatic stress disorder, unspecified F43.10 ; Major depressive disorder, recurrent, moderate F33.1 and Problems related to release from mcfp Z65.2 [place] [address] [place] [address] 48410- 4074 Oct, [facility] [place] [id number] [place] [address] 00847- 9579 Oct, [place] [place] [id number] [place] [address] 21199- 4869 Oct, Post-traumatic stress disorder, unspecified F43.10 ; Major depressive disorder, recurrent, moderate F33.1 and Problems related to release from mcfp Z65.2 [facility] [id number] [place] [address] 82282- 7933 08 Oct, 2015 [place] [id number] [place] [address] 22551- 9583 07 Oct, 2015 Environmental allergies Z91.09 ; Cough R05 and Open-angle glaucoma of both eyes H40.10X0 [place] [id number] [place] [address] 11743- 8841 Sep, [place] [id number] [place] [address] 76274- 3054 Sep, Post-traumatic stress disorder, unspecified F43.10 ; Major depressive disorder, recurrent, moderate F33.1 and Problems related to release from mcfp Z65.2 [place] [id number] [place] [address] 59058- 6331 Sep, Chronic pain G89.29 [facility] [id number] [place] [address] 37165- 5123 Sep, Pain in left shoulder M25.512 ; Pain in right shoulder M25.511 and Other chronic pain G89.29 [place] [address]- 4736 Sep, [facility] [id number] [place] [address] 45782- 9647 Sep, [facility] [address]- 9336 Sep, [facility] [id number] [place] [address] [id number] Aug, Dental examination Z01.20 [facility] [id number] [place] [address] 10494- 8854 Aug, Post-traumatic stress disorder, unspecified F43.10 ; Open- angle glaucoma of both eyes H40.10X0 and Problems related to release from mcfp Z65.2 [facility] [id number] [place] [address] 22258- 8533 Aug, [facility] [id number] [place] [address] 46757- 3029 Aug, Sleep apnea, obstructive G47.33 ; Obesity E66.9 ; Hyperlipidemia E78.5 ; Bilateral headaches R51 ; HTN (hypertension) I10 ; Post- traumatic stress disorder, unspecified F43.10 ; Anxiety F41.9 ; Neuropathy G62.9 ; Glaucoma H40.9 and Chronic pain G89.29 [facility] [id number] [id number] Aug, Encounter for dental examination Z01.20 [facility] [address] [place] [address]- 8113 Aug, Post-traumatic stress disorder, unspecified F43.10 ; Major depressive disorder, recurrent, moderate F33.1 and Problems related to release from mcfp Z65.2 [facility] [address] [address]- 3830 Aug, [facility] [address] [place] [address]- 1187 Jul, [facility] [address] [place] [address]- 0351 Jul, Post-traumatic stress disorder, unspecified F43.10 and Major depressive disorder, recurrent, moderate F33.1 [facility] [address] [address]- 3122 Jul, [facility] [address] [address]- 4405 Jul, [facility] [address] [place] [address]- 4735 Jul, Chronic pain G89.29 [facility] [id number] [place] [address] 90405- 8795 June, Post-traumatic stress disorder, unspecified F43.10 and Major depressive disorder, recurrent, moderate F33.1 [facility] [address] [address] June, [facility] [address] [address] June, Chronic pain G89.29 [facility] [address] [address] June, Post-traumatic stress disorder, unspecified F43.10 and Major depressive disorder, recurrent, moderate F33.1 [facility] [address] [address] May, Post-traumatic stress disorder, unspecified F43.10 and Major depressive disorder, recurrent, moderate F33.1 [facility] [address] [address] May, [facility] [address] [address] May, [facility] [address] [address] May, [facility] [id number] [place] [address] 25621- 4231 Apr, [facility] [id number] [place] [address] 10147- 3157 Apr, Post-traumatic stress disorder, unspecified F43.10 and Sleep apnea, obstructive G47.33 [facility] [id number] [place] [address] 15892- 1248 Apr, [facility] [id number] [place] [address] 75691- 2622 Apr, Shoulder pain, left M25.512 [facility] [id number] [place] [address] 10018- 9287 Apr, Post-traumatic stress disorder, unspecified F43.10 and Major depressive disorder, recurrent, moderate F33.1 [facility] [id number] [place] [address] 89155- 5083 Apr, [facility] [id number] [place] [address] 44323- 0026 Apr, [facility] [id number] [place] [address] 83525- 7124 08 Apr, 2015 [facility] [id number] [place] [address] 79142- 7484 Apr, Left shoulder pain M25.512 [facility] [id number] [place] [address] 05327- 0772 Mar, [facility] [id number] [place] [address] 48582- 7583 Mar, [facility] [id number] [place] [address] 13574- 3478 Mar, [facility] [id number] [place] [address] 88045- 6623 12 Mar, 2015 Sleep apnea, obstructive G47.33 ; Obesity E66.9 ; Chronic pain G89.29 ; Hyperlipidemia E78.5 ; HTN (hypertension) I10 ; Blindness and low vision H54.10 ; Major depressive disorder, recurrent, moderate F33.1 and Anxiety F41.9 [facility] [address] [address]60- [address] Mar, [facility] [id number] [place] [address] 93546- 5446 Mar, Post-traumatic stress disorder, unspecified F43.10 and Major depressive disorder, recurrent, moderate F33.1 [facility] [id number] [place] [address] 57422- 3011 08 Mar, [address] 307872- 6026 04 Mar, 2015 HTN (hypertension) I10 ; Blindness and low vision H54.10 ; Obesity E66.9 ; Hyperlipidemia E78.5 ; Glaucoma H40.9 ; Chronic pain G89.29 and CAD (coronary artery disease) I25.10 [facility] [id number] [place] [address] 03645- 9709 Feb, [address] [address]- [address] Feb, Post-traumatic stress disorder, unspecified F43.10 ; Obesity E66.9 ; Sleep apnea, obstructive G47.33 and Open-angle glaucoma of both eyes H40.10X0 [place] [id number] [place] [address] 77432- 1638 Feb, Post-traumatic stress disorder, unspecified F43.10 and Major depressive disorder, recurrent, moderate F33.1 [facility] [id number] [place] [address] 21335- 7459 Feb, [address] 44811- 7459 Feb, [facility] [id number] [place] [address] 40483- 9918 Feb, HTN (hypertension) I10 ; Post-traumatic stress disorder, unspecified F43.10 ; Blindness and low vision H54.10 ; Obesity E66.9 ; Hyperlipidemia E78.5 ; Chronic pain G89.29 ; Glaucoma H40.9 ; Mitral valve prolapse I34.1 and Bilateral headaches R51 [facility] [id number] [place] [address] 52023- 8108 Feb, [facility] [address] [place] 653552- 6370 Feb, Post-traumatic stress disorder, unspecified F43.10 and Major depressive disorder, recurrent, moderate F33.[address] 494893- 2977 Feb, [facility] [address] 0[address]10- 3717 Feb, [facility] [address] 53613- 7747 Jan, [facility] [id number] [place] [address] 65884- 2556 Jan, [address] 54355- 0668 Jan, Obesity E66.9 ; HTN (hypertension) I10 ; Blindness and low vision H54.10 ; Major depressive disorder, recurrent, moderate F33.1 ; Glaucoma H40.9 ; Hyperlipidemia E78.5 ; Sleep apnea, obstructive G47.33 ; Chronic pain G89.29 ; Anxiety F41.9 ; Chronic tension headaches G44.229 and Cough R05 [facility] [id number] [place] [address] 45035- 3605 Jan, [address] 14391- 9356 Jan, [facility] [id number] [place] [address] 64919- 8480 Jan, Post-traumatic stress disorder, unspecified F43.10 ; Obesity E66.9 ; Sleep apnea, obstructive G47.33 and Open-angle glaucoma of both eyes H40.10X0 [place] [id number]- 2845 Jan, [place] [address]- 8475 Jan, Post-traumatic stress disorder, unspecified F43.10 and Major depressive disorder, recurrent, moderate F33.[address] 29245- 0326 Dec, [address] 788194- 5831 Dec, Sleep apnea, obstructive G47.33 ; Obesity E66.9 ; Hyperlipidemia E78.5 ; Glaucoma H40.9 ; Chronic pain G89.29 ; HTN (hypertension ) I10 ; Blindness and low vision H54.10 ; Anxiety F41.9 and CAD (coronary artery disease) I25.[address] 98097- 1707 Nov, [address] 407377- 4844 Nov, [address] 28049- 6599 Nov, [address] 16546- 0234 Nov, [address] 87920- 0514 Nov, [address] 87131- 2055 Nov, Encounter for immunization Z23 ; Sleep apnea, obstructive G47.33 ; Obesity E66.9 ; Hyperlipidemia E78.5 ; Glaucoma H40.9 ; Chronic pain G89.29 ; Anxiety F41.9 ; Chronic tension headaches G44.229 and HTN (hypertension ) I10 [address] [id number] [address] 19 Nov, 2014 [facility] [id number] [place] [address] 34387- 4981 14 Nov, 2014 [facility] [id number] [place] [address] 81767- 9339 06 Nov, 2014 Dizziness R42 [facility] [id number] [place] [address] 97605- 8255 Nov, [facility] [id number] [place] [address] 29161- 3885 29 Oct, 2014 [facility] [id number] [place] [address] 90921- 8845 28 Oct, 2014 [facility] [id number] [place] [address] 60589- 5470 Oct, [facility] [id number] [place] [address] 87365- 5879 Oct, [facility] [id number] [place] [address] 77787- 3122 17 Oct, 2014 Dizziness 780.4 ; Essential hypertension 401.9 ; Obesity 278.00 ; Hyperlipidemia 272.4 ; Chronic pain 338.29 ; Glaucoma 365.9 and Anxiety 300.00 [facility] [id number] [place] [address] 06735- 0063 Oct, Essential hypertension 401.9 ; Hyperlipidemia 272.4 ; Glaucoma 365.9 ; Obesity 278.00 ; Chronic pain 338.29 and Allergy to insects V15.06 [facility] [address] [address]- [address] Sep, [facility] [id number] [place] [address] 72530- 1069 Sep, [facility] [id number] [place] [address] 30869- 7464 Sep, [facility] [id number] [place] [address] 77142- 2546 Sep, [facility] [address] [facility] [id number] [address]- [address] Aug, Essential hypertension 401.9 ; Obesity 278.00 ; Hyperlipidemia 272.4 ; Glaucoma 365.9 ; Lipoma 214.9 ; Mitral valve prolapse 424.0 ; Angina at rest 413.9 ; Lymphedema 457.1 and Chronic pain 338.29 IMMUNIZATIONS No Known Immunizations SOCIAL HISTORY Never Assessed REASON FOR VISIT [place] PLAN OF CARE Activity Details Follow Up prn Reason:dental wellness VITAL SIGNS MEDICATIONS Unknown Medications RESULTS No Results PROCEDURES Procedure Date Ordered Result Body Site PANORAMIC FILM SEE ALSO CODE [id number] August 27, 2016 INSTRUCTIONS MEDICATIONS ADMINISTERED No [...]
--- OUTSIDE RECORDS SUMMARY | 2018-02-04 15:21 | XMS REPORT ---
Author Author EDUIN CARDONA [facility] Address [address] [place] [address] Care Team Providers Care Chisel Grinder Name Role Phone EDUIN CARDONA Unavailable PROBLEMS Type Condition ICD9-CM Code [id number] Code Onset Dates Condition Status SNOMED Code Problem CAD (coronary artery disease) I25.10 Active 39317689 Problem Encounter for dental examination Z01.20 Active 973896510 Problem Shoulder pain, left M25.512 Active 11876851 Problem Post-traumatic stress disorder, unspecified F43.10 Active 57595173 Problem Hyperlipidemia E78.5 Active 51120707 Problem Primary insomnia F51.01 Active 3197816 Problem Obesity E66.9 Active 867681428 Problem Chronic pain G89.29 Active 12553889 Problem Post-traumatic stress disorder, chronic F43.12 Active 795144359 Problem Bilateral headaches R51 Active 711820012 Problem Arrhythmia as indication for cardiac pacemaker replacement I49.9 Active 01315417 Problem Environmental allergies Z91.09 Active 117143503 Problem 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 Active 785399521 Problem HTN (hypertension) I10 Active 66608095 Problem Glaucoma H40.9 Active 72267157 Problem Problems related to release from senior living Z65.2 Active 87967750 Problem Anxiety F41.9 Active 99625473 Problem Major depressive disorder, recurrent, moderate F33.1 Active 05345681 Problem Chronic tension headaches G44.229 Active 372614710 Problem Open-angle glaucoma of both eyes H40.10X0 Active 14506104 Problem Sleep apnea, obstructive G47.33 Active 80534865 Problem Cough R05 Active 83935989 Problem Mitral valve prolapse I34.1 Active 327246392 ALLERGIES Unknown Allergies SOCIAL HISTORY No smoking Hx information available PLAN OF CARE VITAL SIGNS MEDICATIONS Medication Instructions Dosage Frequency Start Date End Date Duration Status Xanax 1 MG Orally for anxiety 1/2 tab in AM and 1 tab at bedtime Feb, 28 days Active Hydrocodone-Acetaminophen 7.5-325 MG Orally every 6 hrs 1 tablet as needed 6h Feb, 28 days Active Zolpidem Tartrate 10 mg Orally Once a day ONE-HALF TO ONE TABLET 24h Active RESULTS No Results PROCEDURES No Known procedures IMMUNIZATIONS No Known Immunizations
--- OUTSIDE RECORDS SUMMARY | 2018-02-04 15:21 | XMS REPORT ---
Author Author EDUIN CARDONA [facility] Address [address] [place] [address] Care Team Providers Care Resource Development Director Name Role Phone EDUIN CARDONA Unavailable PROBLEMS Type Condition ICD9-CM Code [id number] Code Onset Dates Condition Status SNOMED Code Problem CAD (coronary artery disease) I25.10 Active 61938434 Problem Encounter for dental examination Z01.20 Active 621047320 Problem Shoulder pain, left M25.512 Active 50592111 Problem Post-traumatic stress disorder, unspecified F43.10 Active 23777779 Problem Hyperlipidemia E78.5 Active 42817231 Problem Primary insomnia F51.01 Active 9717252 Problem Obesity E66.9 Active 966836846 Problem Chronic pain G89.29 Active 78195599 Problem Post-traumatic stress disorder, chronic F43.12 Active 034973490 Problem Bilateral headaches R51 Active 447972028 Problem Arrhythmia as indication for cardiac pacemaker replacement I49.9 Active 57229700 Problem Environmental allergies Z91.09 Active 242150897 Problem 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 Active 479310155 Problem HTN (hypertension) I10 Active 80636275 Problem Glaucoma H40.9 Active 26775795 Problem Problems related to release from assisted Z65.2 Active 33177059 Problem Anxiety F41.9 Active 30299949 Problem Major depressive disorder, recurrent, moderate F33.1 Active 75139027 Problem Chronic tension headaches G44.229 Active 505279995 Problem Open-angle glaucoma of both eyes H40.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 Active 65196882 Problem Sleep apnea, obstructive G47.33 Active 99116767 Problem Cough R05 Active 87267674 Problem Mitral valve prolapse I34.1 Active 215844102 ALLERGIES No Information SOCIAL HISTORY Never Assessed PLAN OF CARE VITAL SIGNS MEDICATIONS Medication Instructions Dosage Frequency Start Date End Date Duration Status Xanax 1 MG Orally for anxiety 1/2 tab in AM and 1 tab at bedtime Feb, 28 days Active Hydrocodone-Acetaminophen 7.5-325 MG Orally every 6 hrs 1 tablet as needed 6h 14 Mar, 2016 28 days Active Ambien 10 mg Orally Once at bedtime for sleep /2 to 1 tablet Jan, 28 days Active RESULTS No Results PROCEDURES No Known procedures IMMUNIZATIONS No Known Immunizations MEDICAL (GENERAL) HISTORY Type Description Date Medical History hypertension Medical History hyperlipidemia Medical History mitral valve prolapse Medical History glaucoma Medical 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
--- OUTSIDE RECORDS SUMMARY | 2018-02-04 15:22 | XMS REPORT ---
Author Author EDUIN CARDONA [facility] Address [address] [place] [address] Care Team Providers Care Digital Media Associate Name Role Phone EDUIN CARDONA Unavailable PROBLEMS Type Condition ICD9-CM Code [id number] Code Onset Dates Condition Status SNOMED Code Problem CAD (coronary artery disease) I25.10 Active 31758913 Problem Encounter for dental examination Z01.20 Active 322706815 Problem Shoulder pain, left M25.512 Active 12370985 Problem Post-traumatic stress disorder, unspecified F43.10 Active 07480007 Problem Hyperlipidemia E78.5 Active 73704955 Problem Primary insomnia F51.01 Active 0329116 Problem Obesity E66.9 Active 719968885 Problem Chronic pain G89.29 Active 34676022 Problem Post-traumatic stress disorder, chronic F43.12 Active 675258314 Problem Bilateral headaches R51 Active 930628575 Problem Arrhythmia as indication for cardiac pacemaker replacement I49.9 Active 54211292 Problem Environmental allergies Z91.09 Active 014154350 Problem 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 Active 262536877 Problem HTN (hypertension) I10 Active 32382427 Problem Glaucoma H40.9 Active 50552520 Problem Problems related to release from residential Z65.2 Active 13161865 Problem Anxiety F41.9 Active 68919994 Problem Major depressive disorder, recurrent, moderate F33.1 Active 91096869 Problem Chronic tension headaches G44.229 Active 375551586 Problem Open-angle glaucoma of both eyes H40.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
--- OUTSIDE RECORDS SUMMARY | 2018-02-04 15:22 | XMS REPORT ---
Author Author ASHLEY BRASHER [facility] Address [address] [place] [address] Care Team Providers Care [employer] Underwriter Name Role Phone SAMEERA ASHLEY Unavailable PROBLEMS Type Condition ICD9-CM Code ZEL56-DM Code Onset Dates Condition Status SNOMED Code Problem Arrhythmia as indication for cardiac pacemaker replacement I49.9 Active 93929957 Problem Body mass index (BMI) of 40.0-44.9 in adult Z68.41 Active 156407445 Problem Primary insomnia F51.01 Active 6703616 Problem Sarcoidosis D86.9 Active 95529429 Problem Chronic pain G89.29 Active 58726204 Problem Chronic pain syndrome G89.4 Active 000750105 Problem Sleep apnea, obstructive G47.33 Active 48057747 Problem Hyperlipidemia E78.5 Active 17951021 Problem Other male erectile dysfunction N52.8 Active 191981623 Problem Morbid (severe) obesity due to excess calories E66.01 Active 787795481 Problem Migraine without aura and without status migrainosus, not intractable G43.009 Active 821217404 Problem 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 Active 214801839 Problem Chronic tension headaches G44.229 Active 529310481 Problem Anxiety F41.9 Active 54472329 Problem HTN (hypertension) I10 Active 25430667 Problem Blindness and low vision H54.10 Active 648291422 Problem Mitral valve prolapse I34.1 Active 091178666 Problem CAD (coronary artery disease) I25.10 Active 07279403 Problem Major depressive disorder, recurrent, moderate F33.1 Active 81457293 Problem Post-traumatic stress disorder, chronic F43.12 Active 064865159 Problem Myocarditis, unspecified chronicity, 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 Active 66381318 Problem Open-angle glaucoma of both eyes H40.10X0 Active 60898459 Problem Environmental allergies Z91.09 Active 725243887 ALLERGIES No Information ENCOUNTERS Encounter Location Date Diagnosis [facility] [id number], [place] [address] Aug, [facility] [id number] [place] [address] 24753- 5317 Jul, [facility] [id number] [place] [address] 54567- 6500 Jul, [facility] [id number] [place] [address] 95294- 1924 Jul, Sarcoidosis D86.9 [facility] [id number] [place] [address] 42415- 6345 Jul, Left leg pain M79.605 [facility] [id number] [place] [address] 77866- 9318 Jul, Sarcoidosis D86.9 [facility] [id number] [place] [address] 40974- 1123 Jul, Post-traumatic stress disorder, unspecified F43.10 ; Major depressive disorder, recurrent, moderate F33.1 and Problems related to release from retirement Z65.2 [facility] [id number] [place] [address] 85916- 1213 June, [facility] [address], [place] [address] June, Sore throat J02.9 and BMI 40.0-44.9, adult Z68.41 [facility] [address], [place] [address] 9[address] June, [facility] [id number] [address] 9704 June, [facility] [id number] [place] [address] 16205- 9281 June, [facility] [id number] [place] [address] 85458- 5230 June, Left leg pain M79.605 [facility] [address] [address] 7034 June, Sarcoidosis D86.9 [facility] [id number] [place] [address] 88894- 1417 June, [facility] [id number] [place] [address] 79326- 0906 June, [facility] [id number] [place] [address] 43557- 5377 June, Left leg pain M79.605 [facility] [id number] [place] [address] 59994- 4782 May, [facility] [id number] [place] [address] 08141- 1926 May, [facility] [id number] [place] [address] 20783- 3526 May, [facility] [id number] [place] [address] 17528- 7530 May, Left leg pain M79.605 [facility] [id number] [place] [address] 61608- 9783 May, Post-traumatic stress disorder, unspecified F43.10 ; Major depressive disorder, recurrent, moderate F33.1 and Problems related to release from retirement Z65.2 [facility] [id number] [place] [address] 29942- 1411 May, Chronic pain G89.29 ; Anxiety F41.9 ; Chest pain, unspecified type R07.9 and BMI 40.0-44.9, adult Z68.41 [facility] [id number] [place] [address] 21793- 2166 Apr, [facility] [id number] [place] [address] 95839- 1973 Apr, Left leg pain M79.605 [facility] [id number] [place] [address] 81433- 6107 27 Apr, 2017 Post-traumatic stress disorder, unspecified F43.10 ; Problems related to release from retirement Z65.2 ; Anxiety F41.9 and BMI 40.0-44.9 , adult Z68.41 [facility] [id number] [place] [address] 54548- 3573 Apr, [place] [address] 43124- 7062 Apr, Left leg pain M79.605 [facility] [facility] [address] 76230- 7414 13 Apr, 2017 Post-traumatic stress disorder, unspecified F43.10 ; Major depressive disorder, recurrent, moderate F33.1 and Problems related to release from retirement Z65.2 [place] [address] 87451- 4187 Apr, [place] [address] 70270- 7594 Apr, Chronic pain G89.29 ; 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 ; Morbid (severe) obesity due to excess calories E66.01 ; Anxiety F41.9 and BMI 40.0-44.9, adult Z68.41 [facility] [id number] [place] [address] 88826 -5039 Apr, Sore throat J02.9 and BMI 40.0-44.9, adult Z68.41 [facility] [id number] [place] [address] 33402- 6205 02 Apr, 2017 Left leg pain M79.605 [facility] [address] [id number] Mar, Dental examination Z01.20 [facility] [facility] [id number] [place] [address] 35977- 8100 Mar, [facility] [address] 77359 -4834 Mar, Cough R05 ; Viral gastroenteritis A08.4 and BMI 40.0-44.9, adult Z68.41 [place] [address] 14102- 7876 Mar, Left leg pain M79.605 [place] [facility] [address] 90692- 2842 Mar, Post-traumatic stress disorder, unspecified F43.10 ; Major depressive disorder, recurrent, moderate F33.1 and Problems related to release from retirement Z65.2 [place] [address] 88087- 1217 Feb, Left leg pain M79.605 [place] [address] 72223- 5856 Feb, [place] [address] 59319- 4413 Feb, BMI 40.0-44.9, adult Z68.41 ; Chronic pain syndrome G89.4 ; Migraine without aura and without status migrainosus, not intractable G43.009 ; Mitral valve prolapse I34.1 and 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 [facility] [id number] [place] [address] 88434- 9407 Feb, Post-traumatic stress disorder, chronic F43.12 ; Anxiety F41.9 ; Problems related to release from retirement Z65.2 and BMI 40.0-44.9, adult Z68.41 [facility] [id number] [place] [address] 30852- 3821 Feb, Post-traumatic stress disorder, unspecified F43.10 ; Major depressive disorder, recurrent, moderate F33.1 and Problems related to release from retirement Z65.2 [facility] [facility] [id number] [place] [address] 64185- 2204 Feb, Left leg pain M79.605 [facility] [facility] [address] 75818- 1662 Jan, Post-traumatic stress disorder, unspecified F43.10 ; Major depressive disorder, recurrent, moderate F33.1 and Problems related to release from retirement Z65.2 [facility] [id number] [place] [address] 18970- 3625 Jan, [facility] [id number] [place] [address] 98626- 9270 Jan, [facility] [id number] [place] [address] 656920- 8163 Jan, Anxiety F41.9 [facility] [id number] [place] [address] 96633- 6501 Jan, Left leg pain M79.605 [facility] [id number] [place] [address] 35261- 5417 Dec, Left leg pain M79.605 [facility] [id number] [place] [address] 26602- 1500 Dec, [facility] [id number] [place] [address] 80525- 3323 Dec, Post-traumatic stress disorder, unspecified F43.10 ; Major depressive disorder, recurrent, moderate F33.1 and Problems related to release from retirement Z65.2 [facility] [id number] [place] [address] 06687- 8027 Nov, Chronic pain G89.29 and Anxiety F41.9 [facility] [id number] [place] [address] 53478- 7795 24 Nov, 2016 Chronic pain G89.29 and Anxiety F41.9 [facility] [id number] [place] [address] 99509- 2005 16 Nov, 2016 Post-traumatic stress disorder, unspecified F43.10 ; Major depressive disorder, recurrent, moderate F33.1 and Problems related to release from retirement Z65.2 [facility] [facility] [id number] [place] [address]46 09 Nov, 2016 Other abnormal findings in specimens from other organs, systems and tissues R89.8 ; Other male erectile dysfunction N52.8 ; Body mass index (BMI) of 40.0-44.9 in adult Z68.41 and Morbid (severe) obesity due to excess calories E66.01 [facility] [id number] [place] [address] 62124- 1548 02 Nov, 2016 Post-traumatic stress disorder, unspecified F43.10 ; Major depressive disorder, recurrent, moderate F33.1 and Problems related to release from retirement Z65.2 [facility] [id number] [place] [address] [id number] Oct, Dental examination Z01.20 [facility] [id number] [place] [address] 35290- 5383 28 Oct, 2016 [facility] [id number] [place] [address] 57397- 4242 28 Oct, 2016 Encounter for immunization Z23 [facility] [id number] [place] [address] 53694- 9918 Oct, Chronic pain G89.29 ; Anxiety F41.9 ; Arrhythmia as indication for cardiac pacemaker replacement I49.9 and Glaucoma H40.9 [facility] [id number] [place] [address] 28769- 8271 Oct, Anxiety F41.9 ; Post-traumatic stress disorder, chronic F43.12 and Problems related to release from retirement Z65.2 [facility] [id number] [place] [address] 84519- 8377 Oct, Post-traumatic stress disorder, unspecified F43.10 ; Major depressive disorder, recurrent, moderate F33.1 and Problems related to release from retirement Z65.2 [facility] [id number] [place] [address] 51637- 8269 Sep, Chronic pain G89.29 and Anxiety F41.9 [facility] [id number] [place] [address] 41041- 9514 Sep, Post-traumatic stress disorder, unspecified F43.10 ; Major depressive disorder, recurrent, moderate F33.1 and Problems related to release from retirement Z65.2 [place] [id number] [place] [address] 13875- 3106 Sep, Post-traumatic stress disorder, unspecified F43.10 ; Major depressive disorder, recurrent, moderate F33.1 and Problems related to release from retirement Z65.2 [facility] [id number] [place] [address] 16718- 2714 Sep, Chronic pain G89.29 [address] [id number] [place] [address] 31733- 5098 Aug, Dental caries, unspecified K02.9 [facility] [id number] [place] [address] 53096- 2507 Aug, Sleep apnea, obstructive G47.33 ; Obesity E66.9 ; Chronic pain G89.29 ; HTN (hypertension) I10 ; Major depressive disorder, recurrent, moderate F33.1 ; Anxiety F41.9 ; Chronic tension headaches G44.229 ; Mitral valve prolapse I34.1 ; Arrhythmia as indication for cardiac pacemaker replacement I49.9 ; Dental caries, unspecified K02.9 ; Primary insomnia F51.01 and Hyperlipidemia E78.5 [facility] [facility] [address], [place] [address]- 0660 Aug, Post-traumatic stress disorder, unspecified F43.10 ; Major depressive disorder, recurrent, moderate F33.1 and Problems related to release from retirement Z65.2 [place] [facility] [address], [place] [address]- 4828 Aug, Dental examination Z01.20 [facility] [id number] [place] [address] [id number] Aug, Dental examination Z01.20 [facility] [id number] [place] [address] 85854- 9644 Aug, Post-traumatic stress disorder, unspecified F43.10 ; Major depressive disorder, recurrent, moderate F33.1 and Problems related to release from retirement Z65.2 [facility] [id number] [place] [address] 64696- 7343 Aug, Chronic pain G89.29 and Primary insomnia F51.01 [facility] [id number] [place] [address] 12089- 7385 Jul, [place] [address] 04716- 0118 Jul, [facility] [facility] [id number] [place] [address] 42319- 2590 Jul, Nausea R11.0 [place] [address] 48520- 1711 Jul, Arrhythmia as indication for cardiac pacemaker replacement I49.[address] 13423- 3951 Jul, Post-traumatic stress disorder, unspecified F43.10 ; Major depressive disorder, recurrent, moderate F33.1 and Problems related to release from retirement Z65.2 [place] [id number] [place] [address] 87143- 0773 Jul, Anxiety F41.9 [place] [id number] [place] [address] 50307- 6577 08 Jul, 2016 Chronic pain G89.29 [address] [id number] [place] [address] 36587- 5820 02 Jul, 2016 Sleep apnea, obstructive G47.33 ; Hyperlipidemia E78.5 ; Chronic pain G89.29 ; Blindness and low vision H54.10 ; Major depressive disorder, recurrent, moderate F33.1 ; Anxiety F41.9 ; Mitral valve prolapse I34.1 ; Arrhythmia as indication for cardiac pacemaker replacement I49.9 ; Primary insomnia F51.01 ; Bilateral headaches R51 and Environmental allergies Z91.09 [place] [id number] [place] [address] 22575- 8485 Jul, Post-traumatic stress disorder, unspecified F43.10 ; Major depressive disorder, recurrent, moderate F33.1 and Problems related to release from retirement Z65.2 [place] [id number] [place] [address] 30339- 7768 June, Post-traumatic stress disorder, chronic F43.12 ; Anxiety F41.9 ; Problems related to release from retirement Z65.2 ; Sleep apnea, obstructive G47.33 and Primary insomnia F51.01 [place] [id number] [place] [address] 67725- 1893 June, [facility] [id number] [place] [address] 76485- 2042 June, [facility] [id number] [place] [address] 58767- 7272 June, [facility] [id number] [place] [address] 32319- 6034 June, Chronic pain G89.29 [facility] [facility] [id number] [place] [address] 66046- 4536 June, Chronic pain G89.29 [facility] [id number] [place] [address] 37045- 6782 June, Lipoma of left lower extremity D17.24 ; Open wound T14.8 and Swelling of left lower extremity M79.89 [facility] [facility] [id number] [place] [address] 12130- 4262 June, Post-traumatic stress disorder, unspecified F43.10 ; Major depressive disorder, recurrent, moderate F33.1 and Problems related to release from retirement Z65.2 [place] [id number] [place] [address] 05520- 5415 May, Lipoma of left lower extremity D17.24 ; Major depressive disorder, recurrent, moderate F33.1 ; Sleep apnea, obstructive G47.33 ; Hyperlipidemia E78.5 ; Obesity E66.9 ; HTN (hypertension) I10 ; Glaucoma H40.9 ; CAD (coronary artery disease) I25.10 ; Chronic tension headaches G44.229 ; Chronic pain G89.29 ; Anxiety F41.9 ; Nausea R11.0 and Primary insomnia F51.[address] [place] [address] 53485- 3997 May, [place] [id number] [place] [address] 02358- 7995 May, Chronic pain G89.29 [address] [id number] [place] [address] 10546- 3828 May, [address] 12981- 6088 31 Apr, 2016 Post-traumatic stress disorder, unspecified F43.10 ; Major depressive disorder, recurrent, moderate F33.1 and Problems related to release from retirement Z65.2 [place] [id number] [place] [address] 86796- 3394 28 Apr, 2016 Primary insomnia F51.01 ; Post-traumatic stress disorder, chronic F43.12 and Problems related to release from retirement Z65.2 [place] [id number] [place] [address] 87259- 3198 17 Apr, 2016 Post-traumatic stress disorder, unspecified F43.10 ; Major depressive disorder, recurrent, moderate F33.1 and Problems related to release from retirement Z65.2 [place] [id number] [place] [address] 43604- 6423 Apr, [place] [id number] [place] [address] 20408- 9670 Apr, Sleep apnea, obstructive G47.33 ; Chronic pain G89.29 ; HTN (hypertension) I10 ; Mitral valve prolapse I34.1 ; Shoulder pain, left M25.512 ; Arrhythmia as indication for cardiac pacemaker replacement I49.9 ; Glaucoma H40.9 ; Bilateral headaches R51 ; Environmental allergies Z91.09 ; Primary insomnia F51.01 and Nausea R11.[address], [place] [address]- 2906 Apr, [facility] [id number] [place] [address] 67015- 6405 Apr, [facility] [address] [place] [address] 72533- 4474 Apr, Post-traumatic stress disorder, unspecified F43.10 ; Major depressive disorder, recurrent, moderate F33.1 and Problems related to release from retirement Z65.2 [place] [id number] [place] [address] 24595- 7525 Apr, HTN (hypertension) I10 [place] [id number] [place] [address] 56005- 7573 Apr, HTN (hypertension) I10 [place] [id number] [place] [address] 31394- 1713 14 Mar, 2016 Chronic pain G89.29 ; Primary insomnia F51.01 and Problems related to release from retirement Z65.2 [place] [id number] [place] [address] 80696- 7351 07 Mar, 2016 Post-traumatic stress disorder, unspecified F43.10 ; Major depressive disorder, recurrent, moderate F33.1 and Problems related to release from retirement Z65.2 [place] [id number] [place] [address] 11703- 1182 Feb, Post-traumatic stress disorder, unspecified F43.10 ; Major depressive disorder, recurrent, moderate F33.1 and Problems related to release from retirement Z65.2 [place] [id number] [place] [address] 58309- 3611 Feb, Chronic tension headaches G44.229 [place] [id number] [place] [address] 42944- 5084 Feb, Sleep apnea, obstructive G47.33 ; Obesity [...] insomnia F51.01 [facility] [id number] [place] [address] 28576- 7516 17 Feb, 2016 Post-traumatic stress disorder, unspecified F43.10 and Chronic pain G89.29 [place] [address] 60175- 5959 Feb, [facility] [address] [id number] Feb, Dental caries K02.9 [place] [address] 90297- 4700 Feb, [place] [address] 68733- 1274 Feb, Post-traumatic stress disorder, unspecified F43.10 ; Major depressive disorder, recurrent, moderate F33.1 and Problems related to release from retirement Z65.2 [place] [id number] [place] [address] 51400- 7510 Jan, Sleep apnea, obstructive G47.33 and Chronic pain G89.29 [place] [address] 06981- 1257 Jan, [place] [address] 33341- 7846 14 Jan, 2016 Dental examination Z01.20 [place] [address] 17488- 8926 Jan, [facility] [address] 46655- 2487 Jan, [place] [address] 41960- 5701 Dec, Post-traumatic stress disorder, unspecified F43.10 ; Major depressive disorder, recurrent, moderate F33.1 and Problems related to release from retirement Z65.2 [place] [id number] [place] [address] 90521- 6865 Dec, Encounter for immunization Z23 ; Problems related to release from retirement Z65.2 ; Sleep apnea, obstructive G47.33 and Post-traumatic stress disorder, chronic F43.12 [place] [id number] [place] [address] 11455- 4591 Dec, Sleep apnea, obstructive G47.33 ; Hyperlipidemia E78.5 ; Chronic pain G89.29 ; Glaucoma H40.9 ; HTN (hypertension) I10 ; Post-traumatic stress disorder, unspecified F43.10 ; Anxiety F41.9 ; Chronic tension headaches G44.229 ; Mitral valve prolapse I34.1 and CAD (coronary artery disease) I25.10 [place] [id number] [place] [address] 80872- 6489 Dec, Post-traumatic stress disorder, unspecified F43.10 ; Major depressive disorder, recurrent, moderate F33.1 and Problems related to release from retirement Z65.2 [place] [id number] [place] [address] 14582- 1559 Nov, Chronic pain G89.29 [place] [id number] [place] [address] 53605- 6873 Nov, Post-traumatic stress disorder, unspecified F43.10 ; Major depressive disorder, recurrent, moderate F33.1 and Problems related to release from retirement Z65.2 [place] [id number] [place] [address] 45711- 8981 Oct, [place] [id number] [place] [address] 85761- 9149 Oct, [place] [id number] [place] [address] 29771- 5629 16 Oct, 2015 Post-traumatic stress disorder, unspecified F43.10 ; Major depressive disorder, recurrent, moderate F33.1 and Problems related to release from retirement Z65.2 [place] [id number] [place] [address] 09498- 1435 08 Oct, 2015 [facility] [id number] [place] [address] 47800- 0693 07 Oct, 2015 Environmental allergies Z91.09 ; Cough R05 and Open-angle glaucoma of both eyes H40.10X0 [place] [id number] [place] [address] 40399- 1354 Sep, [place] [id number] [place] [address] 70090- 3902 Sep, Post-traumatic stress disorder, unspecified F43.10 ; Major depressive disorder, recurrent, moderate F33.1 and Problems related to release from retirement Z65.2 [place] [id number] [place] [address] 99339- 7619 16 Sep, 2015 Chronic pain G89.29 [place] [id number] [place] [address] 15081- 2894 Sep, Pain in left shoulder M25.512 ; Pain in right shoulder M25.511 and Other chronic pain G89.29 [place] [address] [place] [id number] [place] [address] [id number] [id number] Sep, [place] [address] [place] [place] [id number] [place] [address] [phone]- [phone] Sep, [facility] [id number] [place] [address] [id number]- [id number] Sep, [facility] [address] [id number] [place] [address] [id number] Aug, Dental examination Z01.20 [facility] [id number] [place] [address] 90115- 4312 Aug, Post-traumatic stress disorder, unspecified F43.10 ; Open- angle glaucoma of both eyes H40.10X0 and Problems related to release from retirement Z65.2 [facility] [address], [place] [address] Aug, [facility] [id number] [place] [address] 07732- 2261 Aug, Sleep apnea, obstructive G47.33 ; Obesity E66.9 ; Hyperlipidemia E78.5 ; Bilateral headaches R51 ; HTN (hypertension) I10 ; Post- traumatic stress disorder, unspecified F43.10 ; Anxiety F41.9 ; Neuropathy G62.9 ; Glaucoma H40.9 and Chronic pain G89.29 [facility] [id number] [id number] Aug, Encounter for dental examination Z01.20 [facility] [id number] [place] [address] 43549- 4393 Aug, Post-traumatic stress disorder, unspecified F43.10 ; Major depressive disorder, recurrent, moderate F33.1 and Problems related to release from retirement Z65.2 [facility] [id number] [place] [address] 99736- 4376 Aug, [facility] [id number] [place] [address] 47388- 6929 Jul, [facility] [id number] [place] [address] 98594- 6506 Jul, Post-traumatic stress disorder, unspecified F43.10 and Major depressive disorder, recurrent, moderate F33.1 [facility] [address] [address] Jul, [facility] [id number] [place] [address] 50636- 7737 Jul, [facility] [id number] [place] [address] 29965- 1777 Jul, Chronic pain G89.29 [facility] [id number] [place] [address] 04463- 4761 June, Post-traumatic stress disorder, unspecified F43.10 and Major depressive disorder, recurrent, moderate F33.1 [facility] [id number] [place] [address] 73619- 4853 June, [facility] [id number] [place] [address] 38254- 5082 June, Chronic pain G89.29 [facility] [id number] [place] [address] 98323- 0629 June, Post-traumatic stress disorder, unspecified F43.10 and Major depressive disorder, recurrent, moderate F33.1 [facility] [id number] [place] [address] 31060- 9175 May, Post-traumatic stress disorder, unspecified F43.10 and Major depressive disorder, recurrent, moderate F33.1 [facility] [id number] [place] [address] 94352- 1245 May, [facility] [id number] [place] [address] 10338- 0233 May, [facility] [id number] [place] [address] 64464- 9982 May, [facility] [id number] [place] [address] 80407- 9075 Apr, [facility] [id number] [place] [address] 81859- 2926 Apr, Post-traumatic stress disorder, unspecified F43.10 and Sleep apnea, obstructive G47.33 [facility] [id number] [place] [address] 41797- 5416 Apr, [facility] [id number] [place] [address] 39014- 7951 Apr, Shoulder pain, left M25.512 [facility] [id number] [place] [address] 49987- 9489 Apr, Post-traumatic stress disorder, unspecified F43.10 and Major depressive disorder, recurrent, moderate F33.1 [facility] [id number] [place] [address] 77466- 0231 Apr, [facility] [id number] [place] [address] 82457- 9373 Apr, [facility] [id number] [place] [address] 84255- 7533 Apr, [facility] [id number] [place] [address] 48855- 8428 Apr, Left shoulder pain M25.512 [facility] [id number] [place] [address] 93814- 5606 Mar, [facility] [id number] [place] [address] 78885- 3332 Mar, [facility] [id number] [place] [address] 68005- 7770 Mar, [facility] [id number] [place] [address] 99439- 1417 Mar, Sleep apnea, obstructive G47.33 ; Obesity E66.9 ; Chronic pain G89.29 ; Hyperlipidemia E78.5 ; HTN (hypertension) I10 ; Blindness and low vision H54.10 ; Major depressive disorder, recurrent, moderate F33.1 and Anxiety F41.9 [facility] [id number] [place] [address] 87344- 6846 Mar, [facility] [id number] [place] [address] 39309- 2474 Mar, Post-traumatic stress disorder, unspecified F43.10 and Major depressive disorder, recurrent, moderate F33.1 [facility] [id number] [place] [address] 25163- 0181 Mar, [facility] [id number] [place] [address] 59987- 2147 Mar, HTN (hypertension) I10 ; Blindness and low vision H54.10 ; Obesity E66.9 ; Hyperlipidemia E78.5 ; Glaucoma H40.9 ; Chronic pain G89.29 and CAD (coronary artery disease) I25.10 [facility] [facility] [id number] [place] [address] 62933- 7539 Feb, [address] 78691- 8783 Feb, Post-traumatic stress disorder, unspecified F43.10 ; Obesity E66.9 ; Sleep apnea, obstructive G47.33 and Open-angle glaucoma of both eyes H40.10X0 [address] 68890- 0003 Feb, Post-traumatic stress disorder, unspecified F43.10 and Major depressive disorder, recurrent, moderate F33.[address] 60270- 4890 Feb, [address] [id number] [place] [address] 40640- 1940 Feb, [address] 38202- 5663 Feb, HTN (hypertension) I10 ; Post-traumatic stress disorder, unspecified F43.10 ; Blindness and low vision H54.10 ; Obesity E66.9 ; Hyperlipidemia E78.5 ; Chronic pain G89.29 ; Glaucoma H40.9 ; Mitral valve prolapse I34.1 and Bilateral headaches R51 [address] [address] [id number] [place] [address] 92740- 3348 Feb, [address] 59034- 6792 Feb, Post-traumatic stress disorder, unspecified F43.10 and Major depressive disorder, recurrent, moderate F33.1 [address] [id number] [place] [address] 66731- 5503 Feb, [place] [id number] [place] [address] 40211- 6604 Feb, [facility] [id number] [place] [address] 87240- 2608 Jan, [facility] [id number] [place] [address] 79201- 1072 Jan, [place] [id number] [place] [address] 22002- 0568 Jan, Obesity E66.9 ; HTN (hypertension) I10 ; Blindness and low vision H54.10 ; Major depressive disorder, recurrent, moderate F33.1 ; Glaucoma H40.9 ; Hyperlipidemia E78.5 ; Sleep apnea, obstructive G47.33 ; Chronic pain G89.29 ; Anxiety F41.9 ; Chronic tension headaches G44.229 and Cough R05 [place] [facility] [id number] [place] [address] 26135- 2242 Jan, [facility] [id number] [place] [address] 46211- 2248 Jan, [place] [id number] [place] [address] 39873- 1679 Jan, Post-traumatic stress disorder, unspecified F43.10 ; Obesity E66.9 ; Sleep apnea, obstructive G47.33 and Open-angle glaucoma of both eyes H40.10X0 [facility] [facility] [id number] [place] [address] 09428- 3903 Jan, [facility] [id number] [place] [address] 62719- 5454 Jan, Post-traumatic stress disorder, unspecified F43.10 and Major depressive disorder, recurrent, moderate F33.1 [facility] [id number] [place] [address] 87527- 5123 Dec, [facility] [facility] [id number] [place] [address] 55261- 9762 Dec, Sleep apnea, obstructive G47.33 ; Obesity E66.9 ; Hyperlipidemia E78.5 ; Glaucoma H40.9 ; Chronic pain G89.29 ; HTN (hypertension ) I10 ; Blindness and low vision H54.10 ; Anxiety F41.9 and CAD (coronary artery disease) I25.10 [facility] [id number] [place] [address] 25967- 4691 Nov, [facility] [address] [place] [address] 17929- 4900 Nov, [facility] [address] [place] [address] 25805- 5549 Nov, [address] 64122- 7757 Nov, [id number] [place] [address] 14579- 3872 Nov, [address] 29275- 1730 Nov, Encounter for immunization Z23 ; Sleep apnea, obstructive G47.33 ; Obesity E66.9 ; Hyperlipidemia E78.5 ; Glaucoma H40.9 ; Chronic pain G89.29 ; Anxiety F41.9 ; Chronic tension headaches G44.229 and HTN (hypertension ) I10 [id number] [place] [address] 25088- 2364 Nov, [id number] [place] [address] 61450- 7833 Nov, [address] [id number] [place] [address] 75809- 7620 Nov, Dizziness R42 [address] 76969- 6145 Nov, [place] [id number] [place] [address] 51614- 6426 Oct, [address] 93426- 0314 Oct, [facility] [id number] [place] [address] 14323- 9319 Oct, [facility] [id number] [place] [address] 73839- 7986 Oct, [facility] [id number] [place] [address] 78526- 0043 Oct, Dizziness 780.4 ; Essential hypertension 401.9 ; Obesity 278.00 ; Hyperlipidemia 272.4 ; Chronic pain 338.29 ; Glaucoma 365.9 and Anxiety 300.00 [place] [id number] [place] [address] 29987- 8177 Oct, Essential hypertension 401.9 ; Hyperlipidemia 272.4 ; Glaucoma 365.9 ; Obesity 278.00 ; Chronic pain 338.29 and Allergy to insects V15.06 [place] [facility] [id number] [place] [address] 14776- 9937 Sep, [place] [id number] [place] [address] 34098- 5528 Sep, [place] [id number] [place] [address] 54082- 6281 Sep, [place] [id number] [place] [address] 56357- 0515 Sep, [facility] [id number] [place] [address] 35787- 2328 Aug, Essential hypertension 401.9 ; Obesity 278.00 [...]
--- OUTSIDE RECORDS SUMMARY | 2018-02-04 15:22 | XMS REPORT ---
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 Tool Maker Apprentice Name Role Phone EDUIN CARDONA Unavailable PROBLEMS Type Condition ICD9-CM Code [id number] Code Onset Dates Condition Status SNOMED Code Problem CAD (coronary artery disease) I25.10 Active 88393139 Problem Encounter for dental examination Z01.20 Active 351027737 Problem Shoulder pain, left M25.512 Active 76304137 Problem Post-traumatic stress disorder, unspecified F43.10 Active 93552957 Problem Hyperlipidemia E78.5 Active 65702403 Problem Primary insomnia F51.01 Active 2613537 Problem Obesity E66.9 Active 360852754 Problem Chronic pain G89.29 Active 43221506 Problem Post-traumatic stress disorder, chronic F43.12 Active 038710330 Problem Bilateral headaches R51 Active 527267652 Problem Arrhythmia as indication for cardiac pacemaker replacement I49.9 Active 62107733 Problem Environmental allergies Z91.09 Active 337176630 Problem Blindness and low vision H54.10 Active 877256128 Problem HTN (hypertension) I10 Active 84995518 Problem Glaucoma H40.9 Active 83219282 Problem Problems related to release from [facility] Z65.2 Active 67768450 Problem Anxiety F41.9 Active 17878925 Problem Major depressive disorder, recurrent, moderate F33.1 Active 76310206 Problem Chronic tension headaches G44.229 Active 883759738 Problem Open-angle glaucoma of both eyes H40.10X0 Active 81897703 Problem Sleep apnea, obstructive G47.33 Active 28048628 Problem Cough R05 Active 33902613 Problem Mitral valve prolapse I34.1 Active 696928244 ALLERGIES Substance Reaction Event Type Date Status Penicillin G Potassium rash Drug Allergy Feb, Active Aspirin nausea and vomiting Drug Allergy Feb, Active Wasp venom anaphylaxis Non Drug Allergy Feb, Active SOCIAL HISTORY No smoking Hx information available PLAN OF CARE Activity Details Follow Up 2 Months Reason:obesity and chronic pain VITAL SIGNS Height 67 in 2016-02-25 Weight 274.5 lbs 2016-02-25 Temperature 97.6 degrees Fahrenheit 2016-02-25 Heart Rate 82 bpm 2016-02-25 Respiratory Rate 20 2016-02-25 BMI 42.99 kg/m2 2016-02-25 Blood pressure systolic 116 mmHg 2016-02-25 Blood pressure diastolic 84 mmHg 2016-02-25 MEDICATIONS Medication Instructions Dosage Frequency Start Date End Date Duration Status Topamax 100 MG Orally Twice a day 1 tablet 12h Aug, Active Xalatan 0.005 % Ophthalmic Once a day 1 drop into each eye in the evening 24h Oct, Active Meclizine HCl 25 MG Orally PRN 1 tablet as needed Oct, Active Xanax 1 MG Orally for anxiety 1/2 tab in AM and 1 tab at bedtime Feb, 28 days Active Furosemide 40 MG TAKE ONE TABLET BY MOUTH ONCE DAILY 90 Active Ambien 10 mg Orally Once at bedtime for sleep 1/2 to 1 tablet Jan, 28 days Active Atorvastatin Calcium 40 mg Orally Once a day 1 tablet 24h 90 days Active Gabapentin 300 MG Orally 2 times a day 1 tablet 12h Active EPINEPHrine HCl 0.3 mg as directed Oct, Active Timolol 0.5 % Ophthalmic Once a day 1 drop into affected eye 24h Dec, Active Nitrostat 0.4 MG Sublingual PRN Instill Active Hydrocodone-Acetaminophen 7.5-325 MG Orally every 6 hrs 1 tablet as needed 6h Feb, 28 days Active RESULTS Name Result Date Reference Range CBC 2016-02-25 WBC 6.0 3.4-10.8 RBC 4.94 4.14-5.80 Hemoglobin 14.4 12.6-17.7 Hematocrit 43.4 37.5-51.0 MCV 88 79-97 MCH 29.1 26.6-33.0 MCHC 33.2 31.5-35.7 RDW 13.0 12.3-15.4 Platelets 167 150-379 Neutrophils 69 Lymphs 20 Monocytes 9 Eos 2 Basos 0 Neutrophils (Absolute) 4.1 1.4-7.0 Lymphs (Absolute) 1.2 0.7-3.1 Monocytes(Absolute) 0.6 0.1-0.9 Eos (Absolute) 0.1 0.0-0.4 Baso (Absolute) 0.0 0.0-0.2 Immature Granulocytes 0 Immature Grans (Abs) 0.0 0.0-0.1 LIPID PANEL 2016-02-25 Cholesterol, Total 193 100-199 Triglycerides 174 0-149 HDL Cholesterol 39 >39 VLDL Cholesterol Ivan 35 5-40 LDL Cholesterol Calc 119 0-99 Comment: CMP 2016-02-25 Glucose, Serum 104 65-99 BUN 14 6-24 Creatinine, Serum 0.86 0.76-1.27 eGFR If NonAfricn Am 105 >59 eGFR If Africn Am 121 >59 BUN/Creatinine Ratio 16 9-20 Sodium, Serum 141 134-144 Potassium, Serum 4.1 3.5-5.2 Chloride, Serum 103 96-106 Carbon Dioxide, Total 23 18-29 Calcium, Serum 9.1 8.7-10.2 Protein, Total, Serum 6.8 6.0-8.5 Albumin, Serum 3.9 3.5-5.5 Globulin, Total 2.9 1.5-4.5 A/G Ratio 1.3 1.1-2.5 Bilirubin, Total 0.4 0.0-1.2 Alkaline Phosphatase, S 88 39-117 AST (SGOT) 26 0-40 ALT (SGPT) 21 0-44 PROCEDURES Procedure Date Ordered Related Diagnosis Body Site LAB NOT BILLED BY [facility] Feb 25, 2016 Office Visit, Est Pt., Level 4 Feb 25, 2016 VENIPUNCT, ROUTINE* Feb 25, 2016 IMMUNIZATIONS No Known Immunizations
--- OUTSIDE RECORDS SUMMARY | 2018-02-04 15:22 | XMS REPORT ---
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 Name Role Phone EDUIN CARDONA Unavailable PROBLEMS Type Condition ICD9-CM Code OSK87-ME Code Onset Dates Condition Status SNOMED Code Problem CAD (coronary artery disease) I25.10 Active 68177809 Problem Encounter for dental examination Z01.20 Active 909926775 Problem Shoulder pain, left M25.512 Active 65611177 Problem Post-traumatic stress disorder, unspecified F43.10 Active 27316222 Problem Hyperlipidemia E78.5 Active 23258403 Problem Primary insomnia F51.01 Active 3569244 Problem Obesity E66.9 Active 056769666 Problem Chronic pain G89.29 Active 54957736 Problem Post-traumatic stress disorder, chronic F43.12 Active 702644932 Problem Bilateral headaches R51 Active 485038169 Problem Arrhythmia as indication for cardiac pacemaker replacement I49.9 Active 73631180 Problem Environmental allergies Z91.09 Active 314313976 Problem Blindness and low vision H54.10 Active 620636916 Problem HTN (hypertension) I10 Active 31408087 Problem Glaucoma H40.9 Active 71215869 Problem Problems related to release from alf Z65.2 Active 91406636 Problem Anxiety F41.9 Active 45666515 Problem Major depressive disorder, recurrent, moderate F33.1 Active 54695230 Problem Chronic tension headaches G44.229 Active 434970817 Problem Open-angle glaucoma of both eyes H40.10X0 Active 68601451 Problem Sleep apnea, obstructive G47.33 Active 71194078 Problem Cough R05 Active 22358462 Problem Mitral valve prolapse I34.1 Active 013087251 ALLERGIES No Information SOCIAL HISTORY Never Assessed PLAN OF CARE VITAL SIGNS MEDICATIONS Medication Instructions Dosage Frequency Start Date End Date Duration Status Xanax 1 MG Orally for anxiety 1/2 tab in AM and 1 tab at bedtime 28 Active RESULTS No Results PROCEDURES No [...]
--- OUTSIDE RECORDS SUMMARY | 2018-02-04 15:23 | XMS REPORT ---
Author Author KODAK YBARRA [facility] Address [address] [place] [address] Care Team Providers Care Emergency Medicine Name Role Phone KODAK YBARRA Unavailable PROBLEMS Type Condition ICD9-CM Code [id number] Code Onset Dates Condition Status SNOMED Code Problem Primary insomnia F51.01 Active 4588306 Problem Other male erectile dysfunction N52.8 Active 088747884 Problem Morbid (severe) obesity due to excess calories E66.01 Active 924377448 Problem Sarcoidosis D86.9 Active 67771500 Problem Blindness and low vision H54.10 Active 319019254 Problem Problems related to [facility] Z65.2 Active [id number] Problem Myocarditis, unspecified chronicity, 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 Active 91821263 Problem Chronic pain G89.29 Active 58083851 Problem 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 Active 673000625 Problem Body mass index (BMI) of 40.0-44.9 in adult Z68.41 Active 904869562 Problem Chronic pain syndrome G89.4 Active 574462513 Problem Migraine without aura and without status migrainosus, not intractable G43.009 Active 053384783 Problem Anxiety F41.9 Active 11773524 Problem Major depressive disorder, recurrent, moderate F33.1 Active 17400158 Problem HTN (hypertension) I10 Active 03261606 Problem Chronic tension headaches G44.229 Active 297360953 Problem CAD (coronary artery disease) I25.10 Active 95660482 Problem Post-traumatic stress disorder, chronic F43.12 Active 177230701 Problem Hyperlipidemia E78.5 Active 81434443 Problem Open-angle glaucoma of both eyes H40.10X0 Active 39433660 Problem Environmental allergies Z91.09 Active 021635617 Problem Sleep apnea, obstructive G47.33 Active 23233265 Problem Mitral valve prolapse I34.1 Active 929845513 Problem Arrhythmia as indication for cardiac pacemaker replacement I49.9 Active 78875898 ALLERGIES No Information ENCOUNTERS Encounter Location Date Diagnosis [facility] [id number] [place] [address] 04565- 6138 Oct, [facility] [address] 96715- 8963 Aug, [facility] [id number] [place] [address] 52756- 3436 26 Jul, 2017 Post-traumatic stress disorder, chronic F43.12 ; Anxiety F41.9 ; Problems related to [facility] Z65.2 and BMI 40.0-44.9, adult Z68.41 [facility] [address] 76441- 9698 20 Jul, 2017 HTN (hypertension) I10 ; Body mass index (BMI) of 40.0-44.9 in adult Z68.41 and Acute swimmer''s ear of both sides H60.333 [facility] [address] 40374- 0415 19 Jul, 2017 Glaucoma H40.9 [facility] [id number] [place] [address] 14449- 1402 14 Jul, 2017 [facility] [id number] [place] [address] 31389- 2505 13 Jul, 2017 Sarcoidosis D86.9 [facility] [address] 01528- 6591 12 Jul, 2017 Left leg pain M79.605 [facility] [id number] [place] [address] 64802- 4015 12 Jul, 2017 Sarcoidosis D86.9 [facility] [id number] [place] [address] 63870- 6272 Jul, Post-traumatic stress disorder, unspecified F43.10 ; Major depressive disorder, recurrent, moderate F33.1 and Problems related to [facility] Z65.2 [facility] [id number] [place] [address] 95884- 3980 June, [facility] [address] [address] June, Sore throat J02.9 and BMI 40.0-44.9, adult Z68.41 [facility] [address] [address] 94[address] June, [facility] [id number] [place] [address] 82870- 7270 June, [facility] [id number] [place] [address] 37502- 5181 June, [facility] [id number] [place] [address] 48714- 1224 June, Left leg pain M79.605 [facility] [id number] [place] [address] 89553- 7381 June, Sarcoidosis D86.9 [facility] [id number] [place] [address] 92478- 3354 June, [facility] [id number] [place] [address] 17433- 0618 June, [facility] [id number] [place] [address] 54138- 0197 June, Left leg pain M79.605 [facility] [address], [place] [address] 7208 May, [facility] [id number] [address] 2169 May, [facility] [address], [place] [address]- 2602 May, [facility] [id number] [address] 7924 May, Left leg pain M79.605 [facility] [address], [place] [address]- 0685 May, Post-traumatic stress disorder, unspecified F43.10 ; Major depressive disorder, recurrent, moderate F33.1 and Problems related to [facility] Z65.2 [facility] [id number] [place] [address] 13398- 6217 04 May, 2017 Chronic pain G89.29 ; Anxiety F41.9 ; Chest pain, unspecified type R07.9 and BMI 40.0-44.9, adult Z68.41 [facility] [address] 69295- 0757 30 Apr, 2017 [facility] [id number] [place] [address] 90926- 1870 29 Apr, 2017 Left leg pain M79.605 [facility] [address] 93516- 2560 27 Apr, 2017 Post-traumatic stress disorder, unspecified F43.10 ; Problems related to [facility] Z65.2 ; Anxiety F41.9 and BMI 40.0-44.9 , adult Z68.41 [facility] [id number] [place] [address] 09267- 4026 Apr, [facility] [id number] [place] [address] 16074- 9515 Apr, Left leg pain M79.605 [facility] [id number] [place] [address] 10237- 2660 Apr, Post-traumatic stress disorder, unspecified F43.10 ; Major depressive disorder, recurrent, moderate F33.1 and Problems related to [facility] Z65.2 [facility] [id number] [place] [address] 11908- 0115 Apr, [facility] [address] 22051- 2508 Apr, Chronic pain G89.29 ; 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 ; Morbid (severe) obesity due to excess calories E66.01 ; Anxiety F41.9 and BMI 40.0-44.9, adult Z68.41 [facility] [id number] [place] [address] 94148 -1583 Apr, Sore throat J02.9 and BMI 40.0-44.9, adult Z68.41 [facility] [address] 15702- 2276 02 Apr, 2017 Left leg pain M79.605 [facility] [address] [id number] Mar, Dental examination Z01.20 [facility] [address] 83597- 1818 Mar, [facility] [address] 92076 -6191 Mar, Cough R05 ; Viral gastroenteritis A08.4 and BMI 40.0-44.9, adult Z68.41 [facility] [address] 81350- 2791 Mar, Left leg pain M79.605 [facility] [address] 12577- 0719 Mar, Post-traumatic stress disorder, unspecified F43.10 ; Major depressive disorder, recurrent, moderate F33.1 and Problems related to [facility] Z65.2 [facility] [address] 94861- 0624 Feb, Left leg pain M79.605 [facility] [address] 24535- 1458 Feb, [facility] [address] 28731- 9414 Feb, BMI 40.0-44.9, adult Z68.41 ; Chronic pain syndrome G89.4 ; Migraine without aura and without status migrainosus, not intractable G43.009 ; Mitral valve prolapse I34.1 and 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 [facility] [address] [place] [address] 61508- 2374 Feb, Post-traumatic stress disorder, chronic F43.12 ; Anxiety F41.9 ; Problems related to [facility] Z65.2 and BMI 40.0-44.9, adult Z68.41 [facility] [address] [place] [address] 15701- 0551 Feb, Post-traumatic stress disorder, unspecified F43.10 ; Major depressive disorder, recurrent, moderate F33.1 and Problems related to release [facility] Z65.2 [facility] [address] [place] [address] 31157- 7554 Feb, Left leg pain M79.605 [facility] [id number] [place] [address] 21070- 2272 Jan, Post-traumatic stress disorder, unspecified F43.10 ; Major depressive disorder, recurrent, moderate F33.1 and Problems related to [facility] Z65.2 [facility] [address] [place] [address] 20449- 5966 Jan, [facility] [id number] [place] [address] 36447- 8018 Jan, [facility] [id number] [place] [address] 65162- 6444 Jan, Anxiety F41.9 [facility] [id number] [place] [address] 66473- 0796 Jan, Left leg pain M79.605 [facility] [id number] [place] [address] 09848- 4573 Dec, Left leg pain M79.605 [facility] [id number] [place] [address] 78589- 9776 Dec, [facility] [address] [place] [address] 56774- 2041 Dec, Post-traumatic stress disorder, unspecified F43.10 ; Major depressive disorder, recurrent, moderate F33.1 and Problems related to [facility] Z65.2 [facility] [address] 93472- 0394 31 Nov, 2016 Chronic pain G89.29 and Anxiety F41.9 [facility] [address] 39489- 1896 24 Nov, 2016 Chronic pain G89.29 and Anxiety F41.9 [facility] [address] 73243- 1230 16 Nov, 2016 Post-traumatic stress disorder, unspecified F43.10 ; Major depressive disorder, recurrent, moderate F33.1 and Problems related to release [facility] Z65.2 [facility] [address] 16262- 2965 09 Nov, 2016 Other abnormal findings in specimens from other organs, systems and tissues R89.8 ; Other male erectile dysfunction N52.8 ; Body mass index (BMI) of 40.0-44.9 in adult Z68.41 and Morbid (severe) obesity due to excess calories E66.[address] 26238- 4205 02 Nov, 2016 Post-traumatic stress disorder, unspecified F43.10 ; Major depressive disorder, recurrent, moderate F33.1 and Problems related to release [facility] Z65.2 [facility] [address] [id number] Oct, Dental examination Z01.20 [facility] [id number] [place] [address] 71834- 7322 Oct, [address] 77984- 5650 Oct, Encounter for immunization Z23 [facility] [address] 43866- 2250 26 Oct, 2016 Chronic pain G89.29 ; Anxiety F41.9 ; Arrhythmia as indication for cardiac pacemaker replacement I49.9 and Glaucoma H40.9 [facility] [address], [place] [address]- 9938 Oct, Anxiety F41.9 ; Post-traumatic stress disorder, chronic F43.12 and Problems related to release [facility] Z65.2 [facility] [id number] [place] [address] 58940- 7128 07 Oct, 2016 Post-traumatic stress disorder, unspecified F43.10 ; Major depressive disorder, recurrent, moderate F33.1 and Problems related to release [facility] Z65.2 [facility] [id number] [place] [address] 53872- 0661 Sep, Chronic pain G89.29 and Anxiety F41.9 [facility] [id number] [place] [address] 38316- 6607 Sep, Post-traumatic stress disorder, unspecified F43.10 ; Major depressive disorder, recurrent, moderate F33.1 and Problems related to release [facility] Z65.2 [facility] [id number] [place] [address] 93351- 6875 Sep, Post-traumatic stress disorder, unspecified F43.10 ; Major depressive disorder, recurrent, moderate F33.1 and Problems related to [facility] Z65.2 [facility] [address] [place] [address] 09665- 8078 Sep, Chronic pain G89.29 [facility] [id number] [place] [address] 38306- 8269 Aug, Dental caries, unspecified K02.9 [facility] [address] [place] [address] 67616- 1834 Aug, Sleep apnea, obstructive G47.33 ; Obesity E66.9 ; Chronic pain G89.29 ; HTN (hypertension) I10 ; Major depressive disorder, recurrent, moderate F33.1 ; Anxiety F41.9 ; Chronic tension headaches G44.229 ; Mitral valve prolapse I34.1 ; Arrhythmia as indication for cardiac pacemaker replacement I49.9 ; Dental caries, unspecified K02.9 ; Primary insomnia F51.01 and Hyperlipidemia E78.5 [facility] [address] [place] [address] 98975- 1089 Aug, Post-traumatic stress disorder, unspecified F43.10 ; Major depressive disorder, recurrent, moderate F33.1 and Problems related to release [facility] Z65.2 [facility] [id number] [place] [address] 56539- 7289 Aug, Dental examination Z01.20 [facility] [id number] [place] [address] [id number] 13 Aug, 2016 Dental examination Z01.20 [facility] [id number] [place] [address] 55822- 7622 06 Aug, 2016 Post-traumatic stress disorder, unspecified F43.10 ; Major depressive disorder, recurrent, moderate F33.1 and Problems related to release [facility] Z65.2 [facility] [id number] [place] [address] 40750- 9970 05 Aug, 2016 Chronic pain G89.29 and Primary insomnia F51.01 [facility] [id number] [place] [address] 75733- 6387 Jul, [facility] [id number] [place] [address] 09721- 2592 Jul, [facility] [id number] [place] [address] 36298- 9743 Jul, Nausea R11.0 [facility] [id number] [place] [address] 93980- 0734 Jul, Arrhythmia as indication for cardiac pacemaker replacement I49.9 [facility] [id number] [place] [address] 15827- 3567 Jul, Post-traumatic stress disorder, unspecified F43.10 ; Major depressive disorder, recurrent, moderate F33.1 and Problems related to [facility] Z65.2 [facility] [id number] [place] [address] 33628- 6427 09 Jul, 2016 Anxiety F41.9 [facility] [id number] [place] [address] 25634- 3231 08 Jul, 2016 Chronic pain G89.29 [facility] [id number] [place] [address] 89972- 6878 Jul, Sleep apnea, obstructive G47.33 ; Hyperlipidemia E78.5 ; Chronic pain G89.29 ; Blindness and low vision H54.10 ; Major depressive disorder, recurrent, moderate F33.1 ; Anxiety F41.9 ; Mitral valve prolapse I34.1 ; Arrhythmia as indication for cardiac pacemaker replacement I49.9 ; Primary insomnia F51.01 ; Bilateral headaches R51 and Environmental allergies Z91.09 [facility] [id number] [place] [address] 22849- 5173 Jul, Post-traumatic stress disorder, unspecified F43.10 ; Major depressive disorder, recurrent, moderate F33.1 and Problems related to release [facility] Z65.2 [facility] [id number] [place] [address] 40064- 2589 June, Post-traumatic stress disorder, chronic F43.12 ; Anxiety F41.9 ; Problems related to release [facility] Z65.2 ; Sleep apnea, obstructive G47.33 and Primary insomnia F51.01 [facility] [address] [place] [address] 08208- 3980 June, [facility] [id number] [place] [address] 34041- 5642 June, [facility] [id number] [place] [address] 48315- 1286 June, [facility] [id number] [place] [address] 45883- 8764 June, Chronic pain G89.29 [facility] [id number] [place] [address] 07485- 2962 June, Chronic pain G89.29 [facility] [address] [place] [address]- 6889 June, Lipoma of left lower extremity D17.24 ; Open wound T14.8 and Swelling of left lower extremity M79.89 [facility] [address] 32736- 5687 June, Post-traumatic stress disorder, unspecified F43.10 ; Major depressive disorder, recurrent, moderate F33.1 and Problems related to release [facility] Z65.2 [facility] [address] 20092- 9789 May, Lipoma of left lower extremity D17.24 ; Major depressive disorder, recurrent, moderate F33.1 ; Sleep apnea, obstructive G47.33 ; Hyperlipidemia E78.5 ; Obesity E66.9 ; HTN (hypertension) I10 ; Glaucoma H40.9 ; CAD (coronary artery disease) I25.10 ; Chronic tension headaches G44.229 ; Chronic pain G89.29 ; Anxiety F41.9 ; Nausea R11.0 and Primary insomnia F51.01 [facility] [address] 73995- 7137 May, [facility] [address] 40580- 2552 May, Chronic pain G89.29 [facility] [address] 12604- 9931 May, [facility] [id number] [place] [address] 38529- 3996 Apr, Post-traumatic stress disorder, unspecified F43.10 ; Major depressive disorder, recurrent, moderate F33.1 and Problems related to [facility] Z65.2 [facility] [address] 02471- 2603 Apr, Primary insomnia F51.01 ; Post-traumatic stress disorder, chronic F43.12 and Problems related to release [facility] Z65.2 [facility] [address] 20569- 8715 17 Apr, 2016 Post-traumatic stress disorder, unspecified F43.10 ; Major depressive disorder, recurrent, moderate F33.1 and Problems related to release [facility] Z65.2 [facility] [id number] [place] [address] 88668- 7723 16 Apr, 2016 [facility] [id number] [place] [address] 98568- 5717 16 Apr, 2016 Sleep apnea, obstructive G47.33 ; Chronic pain G89.29 ; HTN (hypertension) I10 ; Mitral valve prolapse I34.1 ; Shoulder pain, left M25.512 ; Arrhythmia as indication for cardiac pacemaker replacement I49.9 ; Glaucoma H40.9 ; Bilateral headaches R51 ; Environmental allergies Z91.09 ; Primary insomnia F51.01 and Nausea R11.0 [facility] [id number] [place] [address] 24265- 8540 15 Apr, 2016 [facility] [address] 69570- 3734 15 Apr, 2016 [facility] [id number] [place] [address] 54350- 8068 Apr, Post-traumatic stress disorder, unspecified F43.10 ; Major depressive disorder, recurrent, moderate F33.1 and Problems related to [facility] Z65.2 [facility] [id number] [place] [address] 86223- 1691 07 Apr, 2016 HTN (hypertension) I10 [facility] [id number] [place] [address] 91157- 8796 07 Apr, 2016 HTN (hypertension) I10 [facility] [id number] [place] [address] 33529- 9056 14 Mar, 2016 Chronic pain G89.29 ; Primary insomnia F51.01 and Problems related to [facility] Z65.2 [facility] [id number] [place] [address] 12232- 3121 07 Mar, 2016 Post-traumatic stress disorder, unspecified F43.10 ; Major depressive disorder, recurrent, moderate F33.1 and Problems related to [facility] Z65.2 [facility] [address] [place] [address] 24946- 7958 Feb, Post-traumatic stress disorder, unspecified F43.10 ; Major depressive disorder, recurrent, moderate F33.1 and Problems related to [facility] Z65.2 [facility] [id number] [place] [address] 92611- 4588 Feb, Chronic tension headaches G44.229 [facility] [id number] [place] [address] 35859- 7589 17 Feb, 2016 Sleep apnea, obstructive G47.33 [...] pacemaker replacement I49.9 and Primary insomnia F51.01 [facility] [id number] [place] [address] 45610- 7517 Feb, Post-traumatic stress disorder, unspecified F43.10 and Chronic pain G89.29 [address] [place] [address] 25030- 8052 Feb, [facility] [address] [place] [address] [id number] Feb, Dental caries K02.9 [facility] [address] [place] [address] 85509- 6621 Feb, [facility] [id number] [place] [address] 33603- 4742 Feb, Post-traumatic stress disorder, unspecified F43.10 ; Major depressive disorder, recurrent, moderate F33.1 and Problems related to [facility] Z65.2 [facility] [address] [address]- 9008 Jan, Sleep apnea, obstructive G47.33 and Chronic pain G89.29 [facility] [id number] [place] [address] 85434- 8846 Jan, [facility] [id number] [place] [address] 19021- 9677 14 Jan, 2016 Dental examination Z01.20 [facility] [id number] [place] [address] 87723- 4145 09 Jan, 2016 [facility] [id number] [place] [address] 75665- 3307 Jan, [facility] [id number] [place] [address] 96980- 5742 29 Dec, 2015 Post-traumatic stress disorder, unspecified F43.10 ; Major depressive disorder, recurrent, moderate F33.1 and Problems related to [facility] Z65.2 [facility] [id number] [place] [address] 82054- 0181 29 Dec, 2015 Encounter for immunization Z23 ; Problems related to [facility] Z65.2 ; Sleep apnea, obstructive G47.33 and Post-traumatic stress disorder, chronic F43.12 [id number] [place] [address] 39236- 1191 18 Dec, 2015 Sleep apnea, obstructive G47.33 ; Hyperlipidemia E78.5 ; Chronic pain G89.29 ; Glaucoma H40.9 ; HTN (hypertension) I10 ; Post-traumatic stress disorder, unspecified F43.10 ; Anxiety F41.9 ; Chronic tension headaches G44.229 ; Mitral valve prolapse I34.1 and CAD (coronary artery disease) I25.10 [facility] [id number] [place] [address] 46515- 2194 15 Dec, 2015 Post-traumatic stress disorder, unspecified F43.10 ; Major depressive disorder, recurrent, moderate F33.1 and Problems related to [facility] Z65.2 [place] [address] [address]- 1069 Nov, Chronic pain G89.29 [facility] [id number] [place] [address] 99910- 5837 Nov, Post-traumatic stress disorder, unspecified F43.10 ; Major depressive disorder, recurrent, moderate F33.1 and Problems related to [facility] Z65.2 [facility] [id number] [place] [address] 99415- 0750 Oct, [facility] [id number] [place] [address] 23520- 1937 Oct, [facility] [id number] [place] [address] 93498- 8281 Oct, Post-traumatic stress disorder, unspecified F43.10 ; Major depressive disorder, recurrent, moderate F33.1 and Problems [facility] Z65.2 [facility] [id number] [place] [address] 37580- 3801 08 Oct, 2015 [facility] [id number] [place] [address] 49521- 5560 07 Oct, 2015 Environmental allergies Z91.09 ; Cough R05 and Open-angle glaucoma of both eyes H40.10X0 [facility] [id number] [place] [address] 10444- 5059 Sep, [facility] [id number] [place] [address] 24726- 3029 Sep, Post-traumatic stress disorder, unspecified F43.10 ; Major depressive disorder, recurrent, moderate F33.1 and Problems related to [facility] Z65.2 [facility] [id number] [place] [address] 26646- 6052 Sep, Chronic pain G89.29 [facility] [address] [place] [address] 74722- 8693 Sep, Pain in left shoulder M25.512 ; Pain in right shoulder M25.511 and Other chronic pain G89.29 [facility] [address] [address] 99[address] Sep, [facility] [id number] [place] [address] [id number]- 6593 Sep, [facility] [id number] [place] [address] 08467- 4987 Sep, [facility] [id number] [place] [address] [id number] Aug, Dental examination Z01.20 [facility] [id number] [place] [address] 64588- 5348 Aug, Post-traumatic stress disorder, unspecified F43.10 ; Open- angle glaucoma of both eyes H40.10X0 and Problems related to [facility] Z65.2 [facility] [id number] [place] [address] 00118- 5285 Aug, [facility] [id number] [place] [address] 13822- 5514 Aug, Sleep apnea, obstructive G47.33 ; Obesity E66.9 ; Hyperlipidemia E78.5 ; Bilateral headaches R51 ; HTN (hypertension) I10 ; Post- traumatic stress disorder, unspecified F43.10 ; Anxiety F41.9 ; Neuropathy G62.9 ; Glaucoma H40.9 and Chronic pain G89.29 [facility] [address] [id number] Aug, Encounter for dental examination Z01.20 [facility] [id number] [place] [address] 09001- 8416 Aug, Post-traumatic stress disorder, unspecified F43.10 ; Major depressive disorder, recurrent, moderate F33.1 and Problems related to [facility] Z65.2 [facility] [address] [address] 6074 Aug, [facility] [id number] [place] [address] 98978- 6059 Jul, [facility] [address], [place] [address] 7589 Jul, Post-traumatic stress disorder, unspecified F43.10 and Major depressive disorder, recurrent, moderate F33.1 [facility] [address] [address] 6598 Jul, [facility] [id number] [place] [address] 78367- 6513 Jul, [facility] [address], [place] [address] 5141 Jul, Chronic pain G89.29 [facility] [id number] [place] [address] 68900- 5181 June, Post-traumatic stress disorder, unspecified F43.10 and Major depressive disorder, recurrent, moderate F33.1 [facility] [address] [address] 0027 June, [facility] [address] [address] 2495 June, Chronic pain G89.29 [facility] [id number] [place] [address] 18672- 1740 June, Post-traumatic stress disorder, unspecified F43.10 and Major depressive disorder, recurrent, moderate F33.1 [facility] [address] [address] 1669 May, Post-traumatic stress disorder, unspecified F43.10 and Major depressive disorder, recurrent, moderate F33.1 [facility] [address] [address] 2206 May, [facility] [address] [address] 0468 May, [facility] [address], [place] [address] 2527 May, [facility] [id number] [place] [address] 53272- 6284 Apr, [facility] [address] 51707- 9897 Apr, Post-traumatic stress disorder, unspecified F43.10 and Sleep apnea, obstructive G47.33 [facility] [address] 04371- 4432 Apr, [facility] [id number] [place] [address] 47384- 3217 Apr, Shoulder pain, left M25.512 [facility] [address] 18795- 9446 Apr, Post-traumatic stress disorder, unspecified F43.10 and Major depressive disorder, recurrent, moderate F33.1 [facility] [address] 09931- 1926 Apr, [facility] [id number] [place] [address] 53772- 3402 Apr, [facility] [id number] [place] [address] 16277- 7832 08 Apr, 2015 [facility] [id number] [place] [address] 90199- 1415 Apr, Left shoulder pain M25.512 [facility] [id number] [place] [address] 03528- 9398 Mar, [facility] [id number] [place] [address] 84275- 1071 Mar, [facility] [id number] [place] [address] 80455- 6517 18 Mar, 2015 [facility] [id number] [place] [address] 80233- 7655 Mar, Sleep apnea, obstructive G47.33 ; Obesity E66.9 ; Chronic pain G89.29 ; Hyperlipidemia E78.5 ; HTN (hypertension) I10 ; Blindness and low vision H54.10 ; Major depressive disorder, recurrent, moderate F33.1 and Anxiety F41.9 [facility] [id number] [place] [address] 77182- 1241 Mar, [facility] [id number] [place] [address] 77649- 0956 Mar, Post-traumatic stress disorder, unspecified F43.10 and Major depressive disorder, recurrent, moderate F33.1 [facility] [id number] [place] [address] 67673- 0580 Mar, [place] [address]- 2104 04 Mar, 2015 HTN (hypertension) I10 ; Blindness and low vision H54.10 ; Obesity E66.9 ; Hyperlipidemia E78.5 ; Glaucoma H40.9 ; Chronic pain G89.29 and CAD (coronary artery disease) I25.10 [facility] [id number] [place] [address] 38884- 3877 Feb, [place] [id number] [place] [address] 53155- 9975 Feb, Post-traumatic stress disorder, unspecified F43.10 ; Obesity E66.9 ; Sleep apnea, obstructive G47.33 and Open-angle glaucoma of both eyes H40.10X0 [facility] [id number] [place] [address] 55475- 2474 Feb, Post-traumatic stress disorder, unspecified F43.10 and Major depressive disorder, recurrent, moderate F33.1 [facility] [id number] [place] [address] 44074- 7892 Feb, [facility] [id number] [place] [address] 76122- 0938 Feb, [facility] [id number] [place] [address] 60326- 4754 Feb, HTN (hypertension) I10 ; Post-traumatic stress disorder, unspecified F43.10 ; Blindness and low vision H54.10 ; Obesity E66.9 ; Hyperlipidemia E78.5 ; Chronic pain G89.29 ; Glaucoma H40.9 ; Mitral valve prolapse I34.1 and Bilateral headaches R51 [facility] [address] 33434- 5240 Feb, [facility] [address] 250979- 1560 Feb, Post-traumatic stress disorder, unspecified F43.10 and Major depressive disorder, recurrent, moderate F33.[address] 78797- 5334 Feb, [facility] [address] 06850- 2582 Feb, [facility] [address] 86533- 3962 Jan, [facility] [address] 68358- 5192 Jan, [address] 14338- 8570 Jan, Obesity E66.9 ; HTN (hypertension) I10 ; Blindness and low vision H54.10 ; Major depressive disorder, recurrent, moderate F33.1 ; Glaucoma H40.9 ; Hyperlipidemia E78.5 ; Sleep apnea, obstructive G47.33 ; Chronic pain G89.29 ; Anxiety F41.9 ; Chronic tension headaches G44.229 and Cough R05 [address] 66507- 6682 Jan, [place] [id number]- 4468 Jan, [address] 94048- 0398 Jan, Post-traumatic stress disorder, unspecified F43.10 ; Obesity E66.9 ; Sleep apnea, obstructive G47.33 and Open-angle glaucoma of both eyes H40.10X0 [facility] [address] [place] [id number]- 0925 Jan, [facility] [address] [place] [address] [address]- 6265 Jan, Post-traumatic stress disorder, unspecified F43.10 and Major depressive disorder, recurrent, moderate F33.1 [facility] [address] 33548- 6386 Dec, [facility] [address] [place] [address]- 0122 Dec, Sleep apnea, obstructive G47.33 ; Obesity E66.9 ; Hyperlipidemia E78.5 ; Glaucoma H40.9 ; Chronic pain G89.29 ; HTN (hypertension ) I10 ; Blindness and low vision H54.10 ; Anxiety F41.9 and CAD (coronary artery disease) I25.10 [facility] [address] 26655- 4136 Nov, [facility] [address] 42563- 1996 Nov, [facility] [address] 17120- 0103 Nov, [facility] [address] 60245- 7930 Nov, [facility] [address] 25056- 2628 Nov, [place] [id number]- 4939 Nov, Encounter for immunization Z23 ; Sleep apnea, obstructive G47.33 ; Obesity E66.9 ; Hyperlipidemia E78.5 ; Glaucoma H40.9 ; Chronic pain G89.29 ; Anxiety F41.9 ; Chronic tension headaches G44.229 and HTN (hypertension ) I10 [facility] [address] [address]- 0277 Nov, [facility] [id number] [place] [address] 35613- 2605 Nov, [facility] [id number] [place] [address] 35131- 2792 Nov, Dizziness R42 [facility] [id number] [place] [address] 26138- 5831 Nov, [facility] [id number] [place] [address] 22682- 8599 Oct, [facility] [id number] [place] [address] 11203- 7817 Oct, [facility] [id number] [place] [address] 00687- 1985 Oct, [facility] [id number] [place] [address] 65337- 5036 Oct, [facility] [id number] [place] [address] 59717- 9186 Oct, Dizziness 780.4 ; Essential hypertension 401.9 ; Obesity 278.00 ; Hyperlipidemia 272.4 ; Chronic pain 338.29 ; Glaucoma 365.9 and Anxiety 300.00 [facility] [id number] [place] [address] 96660- 5770 Oct, Essential hypertension 401.9 ; Hyperlipidemia 272.4 ; Glaucoma 365.9 ; Obesity 278.00 ; Chronic pain 338.29 and Allergy to insects V15.06 [facility] [id number] [place] [address] 02811- 4896 Sep, [facility] [id number] [place] [address] 72603- 4190 Sep, [facility] [id number] [place] [address] 46203- 2154 Sep, [facility] [id number] [address]- 9561 Sep, [facility] [address] [facility] [id number] [place] [address]- 8199 Aug, Essential hypertension 401.9 ; Obesity 278.00 ; Hyperlipidemia 272.4 ; Glaucoma 365.9 ; Lipoma 214.9 ; Mitral valve prolapse 424.0 ; Angina at rest 413.9 ; Lymphedema 457.1 and Chronic pain 338.29 IMMUNIZATIONS No Known Immunizations SOCIAL HISTORY Never Assessed REASON FOR VISIT Controlled Med Refill Request PLAN OF CARE VITAL SIGNS MEDICATIONS Medication Instructions Dosage Frequency Start Date End Date Duration Status Oxycodone HCl 10 mg Orally 2 times a day 1 tablet as needed 12h Jan, 30 days Active Hydrocodone-Acetaminophen 7.5-325 MG Orally 4 times a day 1 tablet 6h Feb, 28 days Active RESULTS No Results PROCEDURES [...]
--- OUTSIDE RECORDS SUMMARY | 2018-02-04 15:23 | XMS REPORT ---
Author Author KODAK YBARRA [facility] [address] Address [address] [place] [address] Care Team Providers Care Can Sealer Name Role Phone KODAK YBARRA Unavailable PROBLEMS Type Condition ICD9-CM Code NHY43-FL Code Onset Dates Condition Status SNOMED Code Problem Glaucoma H40.9 Active 06364619 Problem Problems related to release from care home Z65.2 Active 23500940 Problem Sleep apnea, obstructive G47.33 Active 12366887 Problem Encounter for dental examination Z01.20 Active 825470797 Problem Chronic pain G89.29 Active 40616623 Problem Bilateral headaches R51 Active 054752454 Problem Obesity E66.9 Active 531186601 Problem Post-traumatic stress disorder, chronic F43.12 Active 046419693 Problem Arrhythmia as indication for cardiac pacemaker replacement I49.9 Active 94013857 Problem Environmental allergies Z91.09 Active 150294490 Problem Morbid (severe) obesity due to excess calories E66.01 Active 468240121 Problem Other male erectile dysfunction N52.8 Active 657020589 Problem Blindness and low vision H54.10 Active 512180977 Problem HTN (hypertension) I10 Active 47615103 Problem Hyperlipidemia E78.5 Active 14214933 Problem Post-traumatic stress disorder, unspecified F43.10 Active 29534530 Problem Primary insomnia F51.01 Active 9195776 Problem Other abnormal findings in specimens from other organs, systems and tissues R89.8 Active 294441089 Problem Body mass index (BMI) of 40.0-44.9 in adult Z68.41 Active 215858378 Problem Cough R05 Active 82057048 Problem Major depressive disorder, recurrent, moderate F33.1 Active 51368127 Problem Chronic tension headaches G44.229 Active 573093407 Problem Anxiety F41.9 Active 95960485 Problem CAD (coronary artery disease) I25.10 Active 37053358 Problem Shoulder pain, left M25.512 Active 14617030 Problem Open-angle glaucoma of both eyes H40.10X0 Active 39542304 Problem Mitral valve prolapse I34.1 Active 059822978 ALLERGIES No Information SOCIAL HISTORY Never Assessed PLAN OF CARE VITAL SIGNS MEDICATIONS Medication Instructions Dosage Frequency Start Date End Date Duration Status Hydrocodone-Acetaminophen 7.5-325 MG Orally 4 times a day 1 tablet as needed 6h June, 28 days Active RESULTS No Results PROCEDURES [...]
--- OUTSIDE RECORDS SUMMARY | 2018-02-04 15:24 | XMS REPORT ---
Author Author CJ EDGE Organization [facility] Address [address] [place] [address] Care Team Providers Care Mail Room Clerk Name Role Phone CJ EDGE Unavailable PROBLEMS Type Condition ICD9-CM Code UUU32-XM Code Onset Dates Condition Status SNOMED Code Problem Arrhythmia as indication for cardiac pacemaker replacement I49.9 Active 22777561 Problem Body mass index (BMI) of 40.0-44.9 in adult Z68.41 Active 380304323 Problem Primary insomnia F51.01 Active 9000656 Problem Sarcoidosis D86.9 Active 96300986 Problem Chronic pain G89.29 Active 47312560 Problem Chronic pain syndrome G89.4 Active 067889884 Problem Sleep apnea, obstructive G47.33 Active 07134681 Problem Hyperlipidemia E78.5 Active 54439925 Problem Other male erectile dysfunction N52.8 Active 565758794 Problem Morbid (severe) obesity due to excess calories E66.01 Active 846721766 Problem Migraine without aura and without status migrainosus, not intractable G43.009 Active 431673696 Problem 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 Active 262672958 Problem Chronic tension headaches G44.229 Active 613090465 Problem Anxiety F41.9 Active 60352840 Problem HTN (hypertension) I10 Active 87114146 Problem Blindness and low vision H54.10 Active 375677419 Problem Mitral valve prolapse I34.1 Active 895363717 Problem CAD (coronary artery disease) I25.10 Active 89868442 Problem Major depressive disorder, recurrent, moderate F33.1 Active 88350322 Problem Post-traumatic stress disorder, chronic F43.12 Active 332982131 Problem Myocarditis, unspecified chronicity, 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 Active 92745043 Problem Open-angle glaucoma of both eyes H40.10X0 Active 11456725 Problem Environmental allergies Z91.09 Active 389447544 ALLERGIES No Information ENCOUNTERS Encounter Location Date Diagnosis [facility] [id number] [place] [address] 92469- 5826 Aug, [facility] [id number] [place] [address] 18614- 4206 Jul, [facility] [id number] [place] [address] 59823- 9902 Jul, HTN (hypertension) I10 ; Body mass index (BMI) of 40.0-44.9 in adult Z68.41 and Acute swimmer''s ear of both sides H60.333 [facility] [id number] [place] [address] 88708- 3923 19 Jul, 2017 Glaucoma H40.9 [place] [address] 31131- 0532 14 Jul, 2017 [place] [address] 54421- 1915 13 Jul, 2017 Sarcoidosis D86.9 [facility] [id number] [place] [address] 87333- 7081 12 Jul, 2017 Left leg pain M79.605 [facility] [id number] [place] [address] 89806- 9711 12 Jul, 2017 Sarcoidosis D86.9 [facility] [id number] [place] [address] 81333- 2704 Jul, Post-traumatic stress disorder, unspecified F43.10 ; Major depressive disorder, recurrent, moderate F33.1 and Problems related to release from retirement Z65.2 [facility] [address] [place] [address] 79397- 9695 June, [facility] [id number] [place] [address] 37708 -9671 June, Sore throat J02.9 and BMI 40.0-44.9, adult Z68.41 [facility] [id number] [place] [address] 52480- 4763 June, [place] [address] [address] 8784 June, [facility] [address] [address]- 2037 June, [facility] [address] [address]- 5835 June, Left leg pain M79.605 [facility] [id number] [address]- 1643 June, Sarcoidosis D86.9 [facility] [address] [address]- 8626 June, [facility] [address] [address]- 7509 June, [facility] [address] [address]- 9887 June, Left leg pain M79.605 [facility] [address], [place] [address]- 2048 May, [facility] [address] [address]- 8640 May, [facility] [address], [place] [address]- 5084 May, [facility] [id number] [address]- 4367 May, Left leg pain M79.605 [facility] [id number] [address]- 2177 May, Post-traumatic stress disorder, unspecified F43.10 ; Major depressive disorder, recurrent, moderate F33.1 and Problems related to release from retirement Z65.2 [facility] [id number] [address]- 0176 May, Chronic pain G89.29 ; Anxiety F41.9 ; Chest pain, unspecified type R07.9 and BMI 40.0-44.9, adult Z68.41 [place] [id number] [place] [address] 87778- 1670 30 Apr, 2017 [place] [id number]- 6402 Apr, Left leg pain M79.605 [place] [address] 48816- 8210 Apr, Post-traumatic stress disorder, unspecified F43.10 ; Problems related to release from retirement Z65.2 ; Anxiety F41.9 and BMI 40.0-44.9 , adult Z68.41 [place] [address] 15637- 0681 Apr, [place] [address] 83621- 3287 Apr, Left leg pain M79.605 [place] [address] 22510- 7165 Apr, Post-traumatic stress disorder, unspecified F43.10 ; Major depressive disorder, recurrent, moderate F33.1 and Problems related to release from retirement Z65.2 [facility] [facility] [id number] [place] [address] 16974- 8761 Apr, [facility] [facility] [id number] [place] [address] 13483- 6466 Apr, Chronic pain G89.29 ; 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 ; Morbid (severe) obesity due to excess calories E66.01 ; Anxiety F41.9 and BMI 40.0-44.9, adult Z68.41 [facility] [address] 08412 -4459 Apr, Sore throat J02.9 and BMI 40.0-44.9, adult Z68.41 [facility] [id number] [place] [address] 27889- 6064 Apr, Left leg pain M79.605 [facility] [address] [place] [address] [id number] Mar, Dental examination Z01.20 [facility] [id number] [place] [address] 72497- 0041 Mar, [facility] [id number] [place] [address] 81940 -1557 Mar, Cough R05 ; Viral gastroenteritis A08.4 and BMI 40.0-44.9, adult Z68.41 [facility] [id number] [place] [address] 93248- 7229 Mar, Left leg pain M79.605 [facility] [id number] [place] [address] 22354- 1968 Mar, Post-traumatic stress disorder, unspecified F43.10 ; Major depressive disorder, recurrent, moderate F33.1 and Problems related to release from retirement Z65.2 [facility] [id number] [place] [address] 48327- 3390 Feb, Left leg pain M79.605 [facility] [address] 31685- 8070 Feb, [place] [id number] [place] [address] 09325- 4321 Feb, BMI 40.0-44.9, adult Z68.41 ; Chronic pain syndrome G89.4 ; Migraine without aura and without status migrainosus, not intractable G43.009 ; Mitral valve prolapse I34.1 and 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 [place] [address] [place] [address] 89160- 1627 Feb, Post-traumatic stress disorder, chronic F43.12 ; Anxiety F41.9 ; Problems related to release from retirement Z65.2 and BMI 40.0-44.9, adult Z68.41 [place] [address] 56185- 1221 Feb, Post-traumatic stress disorder, unspecified F43.10 ; Major depressive disorder, recurrent, moderate F33.1 and Problems related to release from retirement Z65.2 [facility] [address] [place] [address] 79365- 9353 Feb, Left leg pain M79.605 [facility] [id number] [place] [address] 730796- 6782 Jan, Post-traumatic stress disorder, unspecified F43.10 ; Major depressive disorder, recurrent, moderate F33.1 and Problems related to release from retirement Z65.2 [facility] [id number] [place] [address] 107890- 7257 Jan, [facility] [id number] [place] [address] 58878- 5445 Jan, [facility] [id number] [place] [address] 95028- 0181 Jan, Anxiety F41.9 [facility] [facility] [id number] [place] [address] 41073- 2701 Jan, Left leg pain M79.605 [place] [facility] [address] [place] [address]- 0697 Dec, Left leg pain M79.605 [facility] [id number] [place] [address] 75213- 1295 Dec, [facility] [id number] [place] [address] 09904- 9843 15 Dec, 2016 Post-traumatic stress disorder, unspecified F43.10 ; Major depressive disorder, recurrent, moderate F33.1 and Problems related to release from retirement Z65.2 [facility] [id number] [place] [address] 29015- 6545 Nov, Chronic pain G89.29 and Anxiety F41.9 [facility] [id number] [place] [id number] 5928 Nov, Chronic pain G89.29 and Anxiety F41.9 [place] [address] [place] [address] 5739 16 Nov, 2016 Post-traumatic stress disorder, unspecified F43.10 ; Major depressive disorder, recurrent, moderate F33.1 and Problems related to release from retirement Z65.[address] 60099- 1232 09 Nov, 2016 Other abnormal findings in specimens from other organs, systems and tissues R89.8 ; Other male erectile dysfunction N52.8 ; Body mass index (BMI) of 40.0-44.9 in adult Z68.41 and Morbid (severe) obesity due to excess calories E66.01 [place] [address] 79328- 3202 02 Nov, 2016 Post-traumatic stress disorder, unspecified F43.10 ; Major depressive disorder, recurrent, moderate F33.1 and Problems related to release from retirement Z65.2 [facility] [address] [id number] 29 Oct, 2016 Dental examination Z01.[address] 01411- 7107 Oct, [place] [address] 83167- 1213 Oct, Encounter for immunization Z23 [address] 58855- 4089 Oct, Chronic pain G89.29 ; Anxiety F41.9 ; Arrhythmia as indication for cardiac pacemaker replacement I49.9 and Glaucoma H40.[address] 39968- 3026 Oct, Anxiety F41.9 ; Post-traumatic stress disorder, chronic F43.12 and Problems related to release from retirement Z65.[address] 03515- 6524 Oct, Post-traumatic stress disorder, unspecified F43.10 ; Major depressive disorder, recurrent, moderate F33.1 and Problems related to release from retirement Z65.2 [facility] [id number] [place] [address] 30191- 5484 Sep, Chronic pain G89.29 and Anxiety F41.[address] 94587- 3356 Sep, Post-traumatic stress disorder, unspecified F43.10 ; Major depressive disorder, recurrent, moderate F33.1 and Problems related to release from retirement Z65.2 [place] [address] 54260- 4933 Sep, Post-traumatic stress disorder, unspecified F43.10 ; Major depressive disorder, recurrent, moderate F33.1 and Problems related to release from retirement Z65.2 [place] [address] 91567- 2378 Sep, Chronic pain G89.29 [place] [facility] [id number] [place] [address] 49491- 4740 Aug, Dental caries, unspecified K02.9 [facility] [id number] [place] [address] 66645- 2521 Aug, Sleep apnea, obstructive G47.33 ; Obesity E66.9 ; Chronic pain G89.29 ; HTN (hypertension) I10 ; Major depressive disorder, recurrent, moderate F33.1 ; Anxiety F41.9 ; Chronic tension headaches G44.229 ; Mitral valve prolapse I34.1 ; Arrhythmia as indication for cardiac pacemaker replacement I49.9 ; Dental caries, unspecified K02.9 ; Primary insomnia F51.01 and Hyperlipidemia E78.[address] [place] [address] 41151- 2134 Aug, Post-traumatic stress disorder, unspecified F43.10 ; Major depressive disorder, recurrent, moderate F33.1 and Problems related to release from retirement Z65.[address] [id number] [address]- 8546 20 Aug, 2016 Dental examination Z01.20 [facility] [address] [place] [address] [id number] 13 Aug, 2016 Dental examination Z01.20 [facility] [id number] [place] [address] 08590- 5787 06 Aug, 2016 Post-traumatic stress disorder, unspecified F43.10 ; Major depressive disorder, recurrent, moderate F33.1 and Problems related to release from retirement Z65.2 [facility] [id number] [place] [address] 71573- 0476 05 Aug, 2016 Chronic pain G89.29 and Primary insomnia F51.01 [facility] [id number] [place] [address] 21931- 4624 30 Jul, 2016 [facility] [id number] [place] [address] 02953- 3317 Jul, [facility] [id number] [place] [address] 22634- 3982 30 Jul, 2016 Nausea R11.0 [facility] [id number] [place] [address] 78872- 1895 Jul, Arrhythmia as indication for cardiac pacemaker replacement I49.9 [facility] [id number] [place] [address] 21613- 9589 Jul, Post-traumatic stress disorder, unspecified F43.10 ; Major depressive disorder, recurrent, moderate F33.1 and Problems related to release from retirement Z65.2 [facility] [address] [place] [address] 74801- 6973 09 Jul, 2016 Anxiety F41.9 [facility] [id number] [place] [address] 67023- 8370 08 Jul, 2016 Chronic pain G89.29 [facility] [id number] [place] [address] 92208- 0229 Jul, Sleep apnea, obstructive G47.33 ; Hyperlipidemia E78.5 ; Chronic pain G89.29 ; Blindness and low vision H54.10 ; Major depressive disorder, recurrent, moderate F33.1 ; Anxiety F41.9 ; Mitral valve prolapse I34.1 ; Arrhythmia as indication for cardiac pacemaker replacement I49.9 ; Primary insomnia F51.01 ; Bilateral headaches R51 and Environmental allergies Z91.09 [place] [address] 46064- 5992 Jul, Post-traumatic stress disorder, unspecified F43.10 ; Major depressive disorder, recurrent, moderate F33.1 and Problems related to release from retirement Z65.2 [place] [address] 891515- 0225 June, Post-traumatic stress disorder, chronic F43.12 ; Anxiety F41.9 ; Problems related to release from retirement Z65.2 ; Sleep apnea, obstructive G47.33 and Primary insomnia F51.01 [place] [address] 23040- 3969 June, [place] [address] 83607- 2226 June, [place] [address] 62497- 6836 June, [place] [id number] [place] [address] 78627- 9633 June, Chronic pain G89.29 [place] [address] 67879- 3587 June, Chronic pain G89.29 [place] [address] 93948- 2276 June, Lipoma of left lower extremity D17.24 ; Open wound T14.8 and Swelling of left lower extremity M79.89 [facility] [id number] [place] [address] 45779- 0522 June, Post-traumatic stress disorder, unspecified F43.10 ; Major depressive disorder, recurrent, moderate F33.1 and Problems related to release from retirement Z65.2 [place] [address] 81068- 0717 May, Lipoma of left lower extremity D17.24 ; Major depressive disorder, recurrent, moderate F33.1 ; Sleep apnea, obstructive G47.33 ; Hyperlipidemia E78.5 ; Obesity E66.9 ; HTN (hypertension) I10 ; Glaucoma H40.9 ; CAD (coronary artery disease) I25.10 ; Chronic tension headaches G44.229 ; Chronic pain G89.29 ; Anxiety F41.9 ; Nausea R11.0 and Primary insomnia F51.01 [place] [address] 47750- 5026 May, [place] [address] 61907- 4048 May, Chronic pain G89.29 [place] [address] 25812- 7411 May, [place] [address] 33621- 0875 Apr, Post-traumatic stress disorder, unspecified F43.10 ; Major depressive disorder, recurrent, moderate F33.1 and Problems related to release from retirement Z65.2 [facility] [id number] [place] [address] 44583- 0028 Apr, Primary insomnia F51.01 ; Post-traumatic stress disorder, chronic F43.12 and Problems related to release from retirement Z65.2 [facility] [address] [place] [address] 34550- 4620 Apr, Post-traumatic stress disorder, unspecified F43.10 ; Major depressive disorder, recurrent, moderate F33.1 and Problems related to release from retirement Z65.2 [facility] [id number] [place] [address] 61754- 5268 Apr, [place] [address] [place] [address]- 8510 16 Apr, 2016 Sleep apnea, obstructive G47.33 ; Chronic pain G89.29 ; HTN (hypertension) I10 ; Mitral valve prolapse I34.1 ; Shoulder pain, left M25.512 ; Arrhythmia as indication for cardiac pacemaker replacement I49.9 ; Glaucoma H40.9 ; Bilateral headaches R51 ; Environmental allergies Z91.09 ; Primary insomnia F51.01 and Nausea R11.0 [place] [address] 38181- 4692 Apr, [place] [address] 37070- 8523 Apr, [place] [address] 25953- 6258 Apr, Post-traumatic stress disorder, unspecified F43.10 ; Major depressive disorder, recurrent, moderate F33.1 and Problems related to release from retirement Z65.2 [place] [id number] [place] [address] 81831- 8332 Apr, HTN (hypertension) I10 [place] [address] 97355- 5537 Apr, HTN (hypertension) I10 [place] [address] [place] [address] 60493- 3002 14 Mar, 2016 Chronic pain G89.29 ; Primary insomnia F51.01 and Problems related to release from retirement Z65.2 [facility] [facility] [address] [place] [address] 90683- 2565 07 Mar, 2016 Post-traumatic stress disorder, unspecified F43.10 ; Major depressive disorder, recurrent, moderate F33.1 and Problems related to release from retirement Z65.2 [facility] [facility] [id number] [place] [address] 25208- 6679 Feb, Post-traumatic stress disorder, unspecified F43.10 ; Major depressive disorder, recurrent, moderate F33.1 and Problems related to release from retirement Z65.2 [facility] [address] [place] [address] 52146- 0802 Feb, Chronic tension headaches G44.[address] 16805- 3378 Feb, Sleep apnea, obstructive G47.33 ; Obesity [...] pacemaker replacement I49.9 and Primary insomnia F51.01 [address] [id number] [place] [address] 63836- 4673 17 Feb, 2016 Post-traumatic stress disorder, unspecified F43.10 and Chronic pain G89.[address] 00757- 0225 Feb, [facility] [address] [id number] Feb, Dental caries K02.9 [id number] [place] [address] 86349- 5904 Feb, [address] 74769- 5541 Feb, Post-traumatic stress disorder, unspecified F43.10 ; Major depressive disorder, recurrent, moderate F33.1 and Problems related to release from retirement Z65.[address] 84241- 0953 Jan, Sleep apnea, obstructive G47.33 and Chronic pain G89.29 [id number] [place] [address] 67883- 0842 Jan, [address] 50766- 9344 14 Jan, 2016 Dental examination Z01.20 [place] [address] [address]- 5601 Jan, [place] [address] [place] [address] [id number]- 9817 Jan, [id number] [place] [address] 32357- 9779 Dec, Post-traumatic stress disorder, unspecified F43.10 ; Major depressive disorder, recurrent, moderate F33.1 and Problems related to release from retirement Z65.2 [place] [id number] [place] [address] 64824- 1461 Dec, Encounter for immunization Z23 ; Problems related to release from retirement Z65.2 ; Sleep apnea, obstructive G47.33 and Post-traumatic stress disorder, chronic F43.12 [id number] [place] [address] 38184- 5903 Dec, Sleep apnea, obstructive G47.33 ; Hyperlipidemia E78.5 ; Chronic pain G89.29 ; Glaucoma H40.9 ; HTN (hypertension) I10 ; Post-traumatic stress disorder, unspecified F43.10 ; Anxiety F41.9 ; Chronic tension headaches G44.229 ; Mitral valve prolapse I34.1 and CAD (coronary artery disease) I25.[address] [place] [address] 38011- 4401 Dec, Post-traumatic stress disorder, unspecified F43.10 ; Major depressive disorder, recurrent, moderate F33.1 and Problems related to release from retirement Z65.2 [address] [address]- 2666 Nov, Chronic pain G89.29 [address] [place] [address] 56073- 8490 Nov, Post-traumatic stress disorder, unspecified F43.10 ; Major depressive disorder, recurrent, moderate F33.1 and Problems related to release from retirement Z65.2 [facility] [address], [place] [address]- 7791 Oct, [facility] [address] [place] [address] 66844- 9455 Oct, [facility] [address] [place] [address] 79831- 8388 Oct, Post-traumatic stress disorder, unspecified F43.10 ; Major depressive disorder, recurrent, moderate F33.1 and Problems related to release from retirement Z65.2 [facility] [address] [address]- 1772 08 Oct, 2015 [facility] [id number] [place] [address] 39747- 0230 07 Oct, 2015 Environmental allergies Z91.09 ; Cough R05 and Open-angle glaucoma of both eyes H40.10X0 [facility] [id number] [place] [address] 44748- 8293 Sep, [facility] [id number] [place] [address] 49283- 9530 Sep, Post-traumatic stress disorder, unspecified F43.10 ; Major depressive disorder, recurrent, moderate F33.1 and Problems related to release from retirement Z65.2 [facility] [address] [address]- 1783 Sep, Chronic pain G89.29 [facility] [address] [place] [address] 76143- 7142 Sep, Pain in left shoulder M25.512 ; Pain in right shoulder M25.511 and Other chronic pain G89.29 [facility] [address] [address]- 2537 Sep, [facility] [address] [address]- 6180 Sep, [facility] [id number] [place] [address] 45245955- 6776 Sep, [facility] [id number] [id number] Aug, Dental examination Z01.20 [facility] [address] [place] [address] 12089- 3689 Aug, Post-traumatic stress disorder, unspecified F43.10 ; Open- angle glaucoma of both eyes H40.10X0 and Problems related to release from retirement Z65.2 [facility] [address] [place] [address] 00600- 3786 Aug, [facility] [address] [place] [address] 11573- 9993 Aug, Sleep apnea, obstructive G47.33 ; Obesity E66.9 ; Hyperlipidemia E78.5 ; Bilateral headaches R51 ; HTN (hypertension) I10 ; Post- traumatic stress disorder, unspecified F43.10 ; Anxiety F41.9 ; Neuropathy G62.9 ; Glaucoma H40.9 and Chronic pain G89.29 [facility] [address] [facility] [id number] [id number] Aug, Encounter for dental examination Z01.20 [facility] [id number] [place] [address] 43152- 0850 Aug, Post-traumatic stress disorder, unspecified F43.10 ; Major depressive disorder, recurrent, moderate F33.1 and Problems related to release from retirement Z65.2 [facility] [address] [address] Aug, [facility] [address] [address] Jul, [facility] [address] [place] [address] 34236- 2617 Jul, Post-traumatic stress disorder, unspecified F43.10 and Major depressive disorder, recurrent, moderate F33.1 [facility] [address] [place] [address] 80331- 5555 Jul, [facility] [address] [address] Jul, [facility] [id number] [place] [address] 67289- 1043 Jul, Chronic pain G89.29 [facility] [id number] [place] [address] 44322- 7600 June, Post-traumatic stress disorder, unspecified F43.10 and Major depressive disorder, recurrent, moderate F33.1 [facility] [id number] [place] [address] 37890- 9735 June, [facility] [id number] [place] [address] 79829- 1027 June, Chronic pain G89.29 [facility] [id number] [place] [address] 37930- 4862 June, Post-traumatic stress disorder, unspecified F43.10 and Major depressive disorder, recurrent, moderate F33.1 [facility] [address] [place] [address] 44992- 3580 May, Post-traumatic stress disorder, unspecified F43.10 and Major depressive disorder, recurrent, moderate F33.1 [facility] [address] [place] [address] 23750- 2269 May, [facility] [id number] [place] [address] 87348- 1840 May, [facility] [address] [address] 3790 May, [facility] [id number] [place] [address] 96058- 2652 Apr, [facility] [address] [place] [address] 75790- 9698 Apr, Post-traumatic stress disorder, unspecified F43.10 and Sleep apnea, obstructive G47.33 [facility] [id number] [place] [address] 86492- 4291 31 Apr, 2015 [facility] [id number] [place] [address] 12433- 1148 21 Apr, 2015 Shoulder pain, left M25.512 [facility] [id number] [place] [address] 22553- 0405 18 Apr, 2015 Post-traumatic stress disorder, unspecified F43.10 and Major depressive disorder, recurrent, moderate F33.1 [facility] [id number] [place] [address] 35313- 4111 17 Apr, 2015 [facility] [address] 33784- 0803 11 Apr, 2015 [facility] [id number] [place] [address] 86384- 5268 08 Apr, 2015 [facility] [address] 99915- 0534 07 Apr, 2015 Left shoulder pain M25.512 [facility] [id number] [place] [address] 70501- 2608 Mar, [facility] [id number] [place] [address] 34703- 4615 Mar, [facility] [id number] [place] [address] 01984- 3423 18 Mar, 2015 [facility] [id number] [place] [address] 99514- 8951 Mar, Sleep apnea, obstructive G47.33 ; Obesity E66.9 ; Chronic pain G89.29 ; Hyperlipidemia E78.5 ; HTN (hypertension) I10 ; Blindness and low vision H54.10 ; Major depressive disorder, recurrent, moderate F33.1 and Anxiety F41.9 [facility] [id number] [place] [address] 13994- 7684 Mar, [facility] [address] [place] [address]- 3321 Mar, Post-traumatic stress disorder, unspecified F43.10 and Major depressive disorder, recurrent, moderate F33.1 [facility] [id number] [place] [address] 08 Mar, 2015 [facility] [id number] [place] [address]133 04 Mar, 2015 HTN (hypertension) I10 ; Blindness and low vision H54.10 ; Obesity E66.9 ; Hyperlipidemia E78.5 ; Glaucoma H40.9 ; Chronic pain G89.29 and CAD (coronary artery disease) I25.10 [facility] [id number] [place], [place] [address]- [address]84 Feb, [facility] [id number] [place] [address] 89041- 2627 Feb, Post-traumatic stress disorder, unspecified F43.10 ; Obesity E66.9 ; Sleep apnea, obstructive G47.33 and Open-angle glaucoma of both eyes H40.10X0 [facility] [id number] [place] [address] 85952- 8560 Feb, Post-traumatic stress disorder, unspecified F43.10 and Major depressive disorder, recurrent, moderate F33.1 [facility] [id number] [place] [address] 70542- 3001 Feb, [facility] [id number] [place] [address] 77063- 6550 Feb, [facility] [id number] [place] [address] 42640- 9947 Feb, HTN (hypertension) I10 ; Post-traumatic stress disorder, unspecified F43.10 ; Blindness and low vision H54.10 ; Obesity E66.9 ; Hyperlipidemia E78.5 ; Chronic pain G89.29 ; Glaucoma H40.9 ; Mitral valve prolapse I34.1 and Bilateral headaches R51 [facility] [id number] [place] [address] [address]46 Feb, [facility] [address] [place] [address] 29174- 0258 Feb, Post-traumatic stress disorder, unspecified F43.10 and Major depressive disorder, recurrent, moderate F33.1 [facility] [address] [place] [address] 11470- 7036 Feb, [facility] [id number] [place] [address] 39396- 1067 Feb, [facility] [id number] [place] [address] 12539- 1443 Jan, [facility] [id number] [place] [address] 88900- 4926 Jan, [facility] [id number] [place] [address] 68005- 0400 Jan, Obesity E66.9 ; HTN (hypertension) I10 ; Blindness and low vision H54.10 ; Major depressive disorder, recurrent, moderate F33.1 ; Glaucoma H40.9 ; Hyperlipidemia E78.5 ; Sleep apnea, obstructive G47.33 ; Chronic pain G89.29 ; Anxiety F41.9 ; Chronic tension headaches G44.229 and Cough R05 [facility] [address] [place] [address] 33074- 8487 Jan, [facility] [id number] [place] [address] 10232- 7134 Jan, [facility] [address] [place] [address] 00546- 2241 Jan, Post-traumatic stress disorder, unspecified F43.10 ; Obesity E66.9 ; Sleep apnea, obstructive G47.33 and Open-angle glaucoma of both eyes H40.10X0 [facility] [address] [place] [address] 71761- 8948 Jan, [facility] [id number] [place] [address] 73333- 0759 Jan, Post-traumatic stress disorder, unspecified F43.10 and Major depressive disorder, recurrent, moderate F33.1 [facility] [address] 22366- 7855 Dec, [facility] [address] 10690- 6189 Dec, Sleep apnea, obstructive G47.33 ; Obesity E66.9 ; Hyperlipidemia E78.5 ; Glaucoma H40.9 ; Chronic pain G89.29 ; HTN (hypertension ) I10 ; Blindness and low vision H54.10 ; Anxiety F41.9 and CAD (coronary artery disease) I25.10 [facility] [address] 78727- 6369 Nov, [facility] [address] 23030- 7273 Nov, [facility] [address] 13847- 5014 Nov, [facility] [address] 26242- 5556 Nov, [facility] [address] 53417- 3040 Nov, [facility] [address] 88407- 7818 Nov, Encounter for immunization Z23 ; Sleep apnea, obstructive G47.33 ; Obesity E66.9 ; Hyperlipidemia E78.5 ; Glaucoma H40.9 ; Chronic pain G89.29 ; Anxiety F41.9 ; Chronic tension headaches G44.229 and HTN (hypertension ) I10 [address] 92907- 2510 Nov, [facility] [address] 97888- 1202 Nov, [facility] [address] [place] [address] 89383- 3370 Nov, Dizziness R42 [facility] [address] [place] [address] 19328- 5298 Nov, [facility] [id number] [place] [address] 45266- 4069 Oct, [facility] [id number] [place] [address] 64158- 0480 Oct, [facility] [id number] [place] [address] 92175- 4471 Oct, [facility] [id number] [place] [address] 97265- 6222 Oct, [facility] [id number] [place] [address] 86789- 7161 Oct, Dizziness 780.4 ; Essential hypertension 401.9 ; Obesity 278.00 ; Hyperlipidemia 272.4 ; Chronic pain 338.29 ; Glaucoma 365.9 and Anxiety 300.00 [facility] [id number] [place] [address] 06442- 3436 Oct, Essential hypertension 401.9 ; Hyperlipidemia 272.4 ; Glaucoma 365.9 ; Obesity 278.00 ; Chronic pain 338.29 and Allergy to insects V15.06 [facility] [address] [place] [address] 59084- 4574 Sep, [facility] [id number] [place] [address] 12713- 0587 Sep, [facility] [id number] [place] [address] 65568- 3222 Sep, [facility] [id number] [place] [address] 18367- 6783 Sep, [facility] [id number] [place] [address] 63034- 3119 Aug, Essential hypertension 401.9 ; Obesity 278.00 [...] Psychotherapy, patient &/family, 30 minutes, established patient Mar 02, 2017 INSTRUCTIONS MEDICATIONS ADMINISTERED No Known Medications [...]
--- OUTSIDE RECORDS SUMMARY | 2018-02-04 15:25 | XMS REPORT ---
Author Author MICHELLE HARVEY [facility] Address [address] [place] [address] Care Team Providers Care Supervisor [employer] Name Role Phone MICHELLE HARVEY Unavailable PROBLEMS Type Condition ICD9-CM Code GDS81-IB Code Onset Dates Condition Status SNOMED Code Problem Glaucoma H40.9 Active 18738710 Problem Problems related to release from residential Z65.2 Active 48776002 Problem Sleep apnea, obstructive G47.33 Active 91742453 Problem Encounter for dental examination Z01.20 Active 691392061 Problem Chronic pain G89.29 Active 72752538 Problem Bilateral headaches R51 Active 991555071 Problem Obesity E66.9 Active 883614175 Problem Post-traumatic stress disorder, chronic F43.12 Active 951345880 Problem Arrhythmia as indication for cardiac pacemaker replacement I49.9 Active 21995792 Problem Environmental allergies Z91.09 Active 662546209 Problem Morbid (severe) obesity due to excess calories E66.01 Active 122350422 Problem Other male erectile dysfunction N52.8 Active 279668072 Problem Blindness and low vision H54.10 Active 767313759 Problem HTN (hypertension) I10 Active 22192070 Problem Hyperlipidemia E78.5 Active 59752218 Problem Post-traumatic stress disorder, unspecified F43.10 Active 05288482 Problem Primary insomnia F51.01 Active 2709238 Problem Other abnormal findings in specimens from other organs, systems and tissues R89.8 Active 576775743 Problem Body mass index (BMI) of 40.0-44.9 in adult Z68.41 Active 728595985 Problem Cough R05 Active 98758765 Problem Major depressive disorder, recurrent, moderate F33.1 Active 69494029 Problem Chronic tension headaches G44.229 Active 536036371 Problem Anxiety F41.9 Active 54662309 Problem CAD (coronary artery disease) I25.10 Active 73159231 Problem Shoulder pain, left M25.512 Active 89171631 Problem Open-angle glaucoma of both eyes H40.10X0 Active 59767166 Problem Mitral valve prolapse I34.1 Active 569060278 ALLERGIES No Information SOCIAL HISTORY Never Assessed PLAN OF CARE VITAL SIGNS MEDICATIONS Medication Instructions Dosage Frequency Start Date End Date Duration Status Hydrocodone-Acetaminophen 7.5-325 MG Orally 3 times per day 1 tablet as needed June, Jul, 28 days Active RESULTS No Results [...]
--- OUTSIDE RECORDS SUMMARY | 2018-02-04 15:25 | XMS REPORT ---
Author Author MICHELLE HARVEY Organization [facility] Address [address] [place] [address] Care Team Providers Care Cna Per Diem Name Role Phone MICHELLE HARVEY Unavailable PROBLEMS Type Condition ICD9-CM Code ZNK97-ZU Code Onset Dates Condition Status SNOMED Code Problem Environmental allergies Z91.09 Active 587790476 Problem Primary insomnia F51.01 Active 9305308 Problem Arrhythmia as indication for cardiac pacemaker replacement I49.9 Active 54932157 Problem Chronic pain syndrome G89.4 Active 068088904 Problem Sleep apnea, obstructive G47.33 Active 92559676 Problem Migraine without aura and without status migrainosus, not intractable G43.009 Active 374867405 Problem Hyperlipidemia E78.5 Active 73093467 Problem Myocarditis, unspecified chronicity, 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 Active 85579310 Problem Other male erectile dysfunction N52.8 Active 216963881 Problem Morbid (severe) obesity due to excess calories E66.01 Active 882085912 Problem 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 Active 622031910 Problem Body mass index (BMI) of 40.0-44.9 in adult Z68.41 Active 943433534 Problem Blindness and low vision H54.10 Active 990917450 Problem Chronic tension headaches G44.229 Active 621310319 Problem Chronic pain G89.29 Active 60495145 Problem HTN (hypertension) I10 Active 80482620 Problem Open-angle glaucoma of both eyes H40.10X0 Active 01939203 Problem Mitral valve prolapse I34.1 Active 399063208 Problem Anxiety F41.9 Active 45119599 Problem CAD (coronary artery disease) I25.10 Active 52775697 Problem Major depressive disorder, recurrent, moderate F33.1 Active 71142778 Problem Post-traumatic stress disorder, chronic F43.12 Active 082124420 ALLERGIES No Information ENCOUNTERS Encounter Location Date Diagnosis [facility] [address] [facility] [id number] [place] [address] 53218- 7364 Jul, [facility] [address] [place] [address] 94346- 8676 Jul, [facility] [address] [place] [id number] [place] [address] 48448- 0438 June, [facility] [address] [place] [id number] [place] [address] 98381- 6821 May, [facility] [address] [place] [id number] [place] [address] 36525- 8886 May, Left leg pain M79.605 [place] [address] [place] [id number] [place] [address] 48533- 0732 May, Post-traumatic stress disorder, unspecified F43.10 ; Major depressive disorder, recurrent, moderate F33.1 and Problems related to release from mcc Z65.2 [place] [address] [place] [id number] [place] [address] 53931- 5469 May, Chronic pain G89.29 ; Anxiety F41.9 and Chest pain, unspecified type R07.9 [place] [address] [place] [id number] [place] [address] 34352- 5404 Apr, [facility] [address] [place] [id number] [place] [address] 04813- 8791 Apr, Left leg pain M79.605 [facility] [address] [place] [address] 69226- 8203 Apr, Post-traumatic stress disorder, unspecified F43.10 ; Problems related to release from mcc Z65.2 ; Anxiety F41.9 and BMI 40.0-44.9 , adult Z68.41 [facility] [address] [place] [id number] [place] [address] 96739- 7754 Apr, [facility] [address] [place] [address] 99085- 3423 Apr, Left leg pain M79.605 [facility] [address] [id number] [place] [address] 91905- 5415 13 Apr, 2017 Post-traumatic stress disorder, unspecified F43.10 ; Major depressive disorder, recurrent, moderate F33.1 and Problems related to release from mcc Z65.2 [place] [address] 47306- 0909 12 Apr, 2017 [place] [address] 46979- 2881 12 Apr, 2017 Chronic pain G89.29 ; 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 [address] [id number] 28 Mar, 2017 Dental examination Z01.20 [place] [address] 93387- 1918 23 Mar, 2017 [facility] [address] 50246 -9399 20 Mar, 2017 Cough R05 ; Viral gastroenteritis A08.4 and BMI 40.0-44.9, adult Z68.41 [place] [address] 96535- 9226 19 Mar, 2017 Left leg pain M79.605 [place] [address] 27884- 7321 06 Mar, 2017 Post-traumatic stress disorder, unspecified F43.10 ; Major depressive disorder, recurrent, moderate F33.1 and Problems related to release from mcc Z65.2 [place] [address] [place] [id number] [place] [address] 74083- 3692 Feb, Left leg pain M79.605 [facility] [address] [id number] [place] [address] 00742- 2173 Feb, [place] [address] [place] [id number] [place] [address] 20303- 2669 Feb, BMI 40.0-44.9, adult Z68.41 ; Chronic pain syndrome G89.4 ; Migraine without aura and without status migrainosus, not intractable G43.009 ; Mitral valve prolapse I34.1 and 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 [place] [address] [place] [id number] [place] [address] 49483- 8801 Feb, Post-traumatic stress disorder, chronic F43.12 ; Anxiety F41.9 ; Problems related to release from mcc Z65.2 and BMI 40.0-44.9, adult Z68.41 [place] [address] [place] [id number] [place] [address] 91158- 1270 Feb, Post-traumatic stress disorder, unspecified F43.10 ; Major depressive disorder, recurrent, moderate F33.1 and Problems related to release from mcc Z65.2 [place] [address] [place] [address] 46556- 4930 Feb, Left leg pain M79.605 [place] [address] [place] [id number] [place] [address] 76165- 1319 Jan, Post-traumatic stress disorder, unspecified F43.10 ; Major depressive disorder, recurrent, moderate F33.1 and Problems related to release from mcc Z65.2 [place] [address] [place] [id number] [place] [address] 13028- 1186 Jan, [place] [address] [place] [id number] [place] [address] 27231- 0472 Jan, [place] [address] [place] [id number] [place] [address] 19943- 5152 Jan, Anxiety F41.9 [place] [address] [place] [address] 02170- 9910 Jan, Left leg pain M79.605 [place] [address] [place] [address] 99100- 5899 Dec, Left leg pain M79.605 [place] [address] [place] [id number] [place] [address] 25365- 5794 Dec, [place] [address] [place] [id number] [place] [address] 84471- 8673 Dec, Post-traumatic stress disorder, unspecified F43.10 ; Major depressive disorder, recurrent, moderate F33.1 and Problems related to release from mcc Z65.2 [place] [address] [place] [id number] [place] [address] 09915- 3090 31 Nov, 2016 Chronic pain G89.29 and Anxiety F41.9 [place] [address] [place] [id number] [place] [address] 59246- 3058 Nov, Chronic pain G89.29 and Anxiety F41.9 [place] [address] [place] [id number] [place] [address] 79422- 2472 16 Nov, 2016 Post-traumatic stress disorder, unspecified F43.10 ; Major depressive disorder, recurrent, moderate F33.1 and Problems related to release from mcc Z65.2 [place] [address] [place] [address] 49541- 5495 09 Nov, 2016 Other abnormal findings in specimens from other organs, systems and tissues R89.8 ; Other male erectile dysfunction N52.8 ; Body mass index (BMI) of 40.0-44.9 in adult Z68.41 and Morbid (severe) obesity due to excess calories E66.01 [place] [address] [place] [address] 39104- 7560 02 Nov, 2016 Post-traumatic stress disorder, unspecified F43.10 ; Major depressive disorder, recurrent, moderate F33.1 and Problems related to release from mcc Z65.2 [facility] [id number] [address] 29 Oct, 2016 Dental examination Z01.20 [place] [address] [place] [address] 76728- 5330 28 Oct, 2016 [place] [address] [place] [address] 20788- 5567 28 Oct, 2016 Encounter for immunization Z23 [place] [address] [place] [id number] [place] [address] 76796- 6484 Oct, Chronic pain G89.29 ; Anxiety F41.9 ; Arrhythmia as indication for cardiac pacemaker replacement I49.9 and Glaucoma H40.9 [place] [address] [place] [address] 96900- 0662 Oct, Anxiety F41.9 ; Post-traumatic stress disorder, chronic F43.12 and Problems related to release from mcc Z65.2 [place] [address] [place] [address] 32314- 2377 07 Oct, 2016 Post-traumatic stress disorder, unspecified F43.10 ; Major depressive disorder, recurrent, moderate F33.1 and Problems related to release from mcc Z65.2 [place] [address] [place] [address] 13549- 3801 Sep, Chronic pain G89.29 and Anxiety F41.9 [place] [address] [place] [address] 92495- 0099 Sep, Post-traumatic stress disorder, unspecified F43.10 ; Major depressive disorder, recurrent, moderate F33.1 and Problems related to release from mcc Z65.2 [place] [address] [place] [address] 06503- 9781 Sep, Post-traumatic stress disorder, unspecified F43.10 ; Major depressive disorder, recurrent, moderate F33.1 and Problems related to release from mcc Z65.2 [place] [address] [place] [address] 00116- 3628 Sep, Chronic pain G89.29 [facility] [address] [address]- 5966 Aug, Dental caries, unspecified K02.9 [facility] [address] [address]- 2946 Aug, Sleep apnea, obstructive G47.33 ; Obesity E66.9 ; Chronic pain G89.29 ; HTN (hypertension) I10 ; Major depressive disorder, recurrent, moderate F33.1 ; Anxiety F41.9 ; Chronic tension headaches G44.229 ; Mitral valve prolapse I34.1 ; Arrhythmia as indication for cardiac pacemaker replacement I49.9 ; Dental caries, unspecified K02.9 ; Primary insomnia F51.01 and Hyperlipidemia E78.5 [facility] [address] [place] [address] 34341- 1963 Aug, Post-traumatic stress disorder, unspecified F43.10 ; Major depressive disorder, recurrent, moderate F33.1 and Problems related to release from mcc Z65.2 [facility] [address] [place] [address] 72711- 4816 Aug, Dental examination Z01.20 [facility] [address] [place] [address] [id number] Aug, Dental examination Z01.20 [facility] [address] [address]- 5802 Aug, Post-traumatic stress disorder, unspecified F43.10 ; Major depressive disorder, recurrent, moderate F33.1 and Problems related to release from mcc Z65.2 [facility] [address] [address]- 8067 Aug, Chronic pain G89.29 and Primary insomnia F51.01 [facility] [address] [address]- 3415 Jul, [facility] [address] [id number] [place] [address] 18054- 0225 Jul, [place] [address] [place] [address] 92975- 1036 30 Jul, 2016 Nausea R11.0 [place] [id number] [place] [address] 49217- 7105 29 Jul, 2016 Arrhythmia as indication for cardiac pacemaker replacement I49.9 [place] [id number] [place] [address] 46270- 4021 13 Jul, 2016 Post-traumatic stress disorder, unspecified F43.10 ; Major depressive disorder, recurrent, moderate F33.1 and Problems related to release from mcc Z65.2 [place] [id number] [place] [address] 20769- 3321 09 Jul, 2016 Anxiety F41.9 [place] [id number] [place] [address] 50714- 1335 08 Jul, 2016 Chronic pain G89.29 [place] [id number] [place] [address] 37497- 8895 02 Jul, 2016 Sleep apnea, obstructive G47.33 ; Hyperlipidemia E78.5 ; Chronic pain G89.29 ; Blindness and low vision H54.10 ; Major depressive disorder, recurrent, moderate F33.1 ; Anxiety F41.9 ; Mitral valve prolapse I34.1 ; Arrhythmia as indication for cardiac pacemaker replacement I49.9 ; Primary insomnia F51.01 ; Bilateral headaches R51 and Environmental allergies Z91.09 [address] [place] [address] 36533- 5665 Jul, Post-traumatic stress disorder, unspecified F43.10 ; Major depressive disorder, recurrent, moderate F33.1 and Problems related to release from mcc Z65.2 [place] [id number] [place] [address] 37752- 0675 June, Post-traumatic stress disorder, chronic F43.12 ; Anxiety F41.9 ; Problems related to release from mcc Z65.2 ; Sleep apnea, obstructive G47.33 and Primary insomnia F51.01 [place] [id number] [place] [address] 20656- 2330 June, [place] [address] [address]- 9843 June, [place] [address] [place] [id number] [place] [address] 55684- 2012 June, [place] [address] [place] [id number] [place] [address] 40810- 1207 June, Chronic pain G89.29 [place] [address] [place] [id number] [place] [address] 47841- 9263 June, Chronic pain G89.29 [place] [id number] [place] [address] 80772- 3200 June, Lipoma of left lower extremity D17.24 ; Open wound T14.8 and Swelling of left lower extremity M79.89 [place] [id number] [place] [address] 36504- 3563 June, Post-traumatic stress disorder, unspecified F43.10 ; Major depressive disorder, recurrent, moderate F33.1 and Problems related to release from mcc Z65.2 [place] [id number] [place] [address] 37023- 3416 May, Lipoma of left lower extremity D17.24 ; Major depressive disorder, recurrent, moderate F33.1 ; Sleep apnea, obstructive G47.33 ; Hyperlipidemia E78.5 ; Obesity E66.9 ; HTN (hypertension) I10 ; Glaucoma H40.9 ; CAD (coronary artery disease) I25.10 ; Chronic tension headaches G44.229 ; Chronic pain G89.29 ; Anxiety F41.9 ; Nausea R11.0 and Primary insomnia F51.01 [place] [id number] [place] [address] 50409- 0715 May, [place] [id number] [place] [address] 23775- 9188 May, Chronic pain G89.29 [place] [id number] [place] [address] 99304- 4273 May, [place] [address] [address]- 7517 Apr, Post-traumatic stress disorder, unspecified F43.10 ; Major depressive disorder, recurrent, moderate F33.1 and Problems related to release from mcc Z65.2 [place] [address] [place] [address] 17527- 2428 Apr, Primary insomnia F51.01 ; Post-traumatic stress disorder, chronic F43.12 and Problems related to release from mcc Z65.2 [place] [address] [place] [id number] [place] [address] 43092- 1776 Apr, Post-traumatic stress disorder, unspecified F43.10 ; Major depressive disorder, recurrent, moderate F33.1 and Problems related to release from mcc Z65.2 [place] [address] [place] [id number] [place] [address] 71269- 5358 Apr, [place] [address] [place] [address] 87428- 2227 Apr, Sleep apnea, obstructive G47.33 ; Chronic pain G89.29 ; HTN (hypertension) I10 ; Mitral valve prolapse I34.1 ; Shoulder pain, left M25.512 ; Arrhythmia as indication for cardiac pacemaker replacement I49.9 ; Glaucoma H40.9 ; Bilateral headaches R51 ; Environmental allergies Z91.09 ; Primary insomnia F51.01 and Nausea R11.0 [place] [address] [address]- 7618 Apr, [place] [address] [place] [address] 55332- 4037 Apr, [place] [address] [place] [id number] [place] [address] 25350- 0236 Apr, Post-traumatic stress disorder, unspecified F43.10 ; Major depressive disorder, recurrent, moderate F33.1 and Problems related to release from mcc Z65.2 [place] [address] [place] [address] [id number] [address]- 2230 Apr, HTN (hypertension) I10 [place] [address] [place] [id number] [place] [address] 05291- 5916 Apr, HTN (hypertension) I10 [place] [address] [place] [id number] [place] [address] 70645- 4441 14 Mar, 2016 Chronic pain G89.29 ; Primary insomnia F51.01 and Problems related to release from mcc Z65.2 [place] [address] [place] [id number] [place] [address] 85240- 9693 07 Mar, 2016 Post-traumatic stress disorder, unspecified F43.10 ; Major depressive disorder, recurrent, moderate F33.1 and Problems related to release from mcc Z65.2 [place] [address] [place] [id number] [place] [address] 39046- 2002 Feb, Post-traumatic stress disorder, unspecified F43.10 ; Major depressive disorder, recurrent, moderate F33.1 and Problems related to release from mcc Z65.2 [place] [address] [place] [id number] [place] [address] 14529- 4341 Feb, Chronic tension headaches G44.229 [place] [address] [place] [id number] [place] [address] 96210- 0421 Feb, Sleep apnea, obstructive G47.33 ; Obesity [...] pacemaker replacement I49.9 and Primary insomnia F51.01 [place] [address] [address]- 3065 Feb, Post-traumatic stress disorder, unspecified F43.10 and Chronic pain G89.29 [place] [address] [address]- 3727 13 Feb, 2016 [facility] [address] [place] [address] [id number] Feb, Dental caries K02.9 [facility] [address] [place] [address] 57923- 5485 Feb, [place] [address] [place] [id number] [place] [address] 97317- 6898 Feb, Post-traumatic stress disorder, unspecified F43.10 ; Major depressive disorder, recurrent, moderate F33.1 and Problems related to release from mcc Z65.2 [place] [address] [place] [id number] [place] [address] 93339- 0958 Jan, Sleep apnea, obstructive G47.33 and Chronic pain G89.29 [place] [address] [place] [id number] [place] [address] 52590- 2370 Jan, [place] [address] [place] [id number] [place] [address] 53262- 7060 14 Jan, 2016 Dental examination Z01.20 [place] [address] [place] [id number] [place] [address] 87592- 0618 Jan, [place] [address] [place] [address] 79353- 7388 Jan, [place] [address] [place] [address] 87527- 4791 Dec, Post-traumatic stress disorder, unspecified F43.10 ; Major depressive disorder, recurrent, moderate F33.1 and Problems related to release from mcc Z65.2 [place] [address] [place] [id number] [place] [address] 71642- 4125 29 Dec, 2015 Encounter for immunization Z23 ; Problems related to release from mcc Z65.2 ; Sleep apnea, obstructive G47.33 and Post-traumatic stress disorder, chronic F43.12 [place] [address] [place] [id number] [place] [address] 89102- 1014 Dec, Sleep apnea, obstructive G47.33 ; Hyperlipidemia E78.5 ; Chronic pain G89.29 ; Glaucoma H40.9 ; HTN (hypertension) I10 ; Post-traumatic stress disorder, unspecified F43.10 ; Anxiety F41.9 ; Chronic tension headaches G44.229 ; Mitral valve prolapse I34.1 and CAD (coronary artery disease) I25.10 [place] [address] 425006- 8239 Dec, Post-traumatic stress disorder, unspecified F43.10 ; Major depressive disorder, recurrent, moderate F33.1 and Problems related to release from mcc Z65.2 [place] [address] [place]00316- 4523 Nov, Chronic pain G89.29 [place] [address] [place] [address]39- 6389 Nov, Post-traumatic stress disorder, unspecified F43.10 ; Major depressive disorder, recurrent, moderate F33.1 and Problems related to release from mcc Z65.2 [place] [address] 78869- 1786 Oct, [place] [address] [place] 47319740- 5351 23 Oct, 2015 [place] [address] [place] [id number] [place] [address] 74519- 9565 16 Oct, 2015 Post-traumatic stress disorder, unspecified F43.10 ; Major depressive disorder, recurrent, moderate F33.1 and Problems related to release from mcc Z65.2 [place] [address] 212522- 9076 08 Oct, 2015 [place] [address]2020- 4856 07 Oct, 2015 Environmental allergies Z91.09 ; Cough R05 and Open-angle glaucoma of both eyes H40.10X0 [address] 11707- 8450 Sep, [place] [address] [place] [id number] [place] [address] 61247- 6263 Sep, Post-traumatic stress disorder, unspecified F43.10 ; Major depressive disorder, recurrent, moderate F33.1 and Problems related to release from mcc Z65.2 [place] [address] [place] [id number] [place] [address] 88360- 8291 Sep, Chronic pain G89.29 [place] [address] [place] [id number] [place] [address] 00207- 2018 Sep, Pain in left shoulder M25.512 ; Pain in right shoulder M25.511 and Other chronic pain G89.29 [place] [address] [place] [id number] [place] [address] 35898- 5544 Sep, [place] [address] [place] [id number] [place] [address] 92554- 7057 Sep, [place] [address] [place] [id number] [place] [address] 90786- 5147 Sep, [facility] [address] [place] [id number] [place] [address] [id number] Aug, Dental examination Z01.20 [place] [address] [place] [id number] [place] [address] 33904- 5647 Aug, Post-traumatic stress disorder, unspecified F43.10 ; Open- angle glaucoma of both eyes H40.10X0 and Problems related to release from mcc Z65.2 [place] [address] [place] [id number] [place] [address] 46893- 5839 Aug, [place] [address] [place] [id number] [place] [address] 30943- 3518 Aug, Sleep apnea, obstructive G47.33 ; Obesity E66.9 ; Hyperlipidemia E78.5 ; Bilateral headaches R51 ; HTN (hypertension) I10 ; Post- traumatic stress disorder, unspecified F43.10 ; Anxiety F41.9 ; Neuropathy G62.9 ; Glaucoma H40.9 and Chronic pain G89.29 [facility] [id number] [id number] Aug, Encounter for dental examination Z01.20 [facility] [address] [place] [address] 78250- 3287 Aug, Post-traumatic stress disorder, unspecified F43.10 ; Major depressive disorder, recurrent, moderate F33.1 and Problems related to release from mcc Z65.2 [facility] [address] [address]- 4377 Aug, [facility] [id number] [place] [address] 74800- 9801 Jul, [facility] [address] [place] [id number] [place] [address] 60770- 4335 Jul, Post-traumatic stress disorder, unspecified F43.10 and Major depressive disorder, recurrent, moderate F33.1 [facility] [address] [address] Jul, [facility] [id number] [place] [id number] Jul, [facility] [id number] [place] [phone] Jul, Chronic pain G89.29 [facility] [id number] [address] June, Post-traumatic stress disorder, unspecified F43.10 and Major depressive disorder, recurrent, moderate F33.1 [facility] [id number] [address] June, [facility] [id number] [place] [address] 19965- 0666 June, Chronic pain G89.29 [facility] [id number] [address] June, Post-traumatic stress disorder, unspecified F43.10 and Major depressive disorder, recurrent, moderate F33.1 [facility] [id number] [place] [address] 86360- 0543 29 May, 2015 Post-traumatic stress disorder, unspecified F43.10 and Major depressive disorder, recurrent, moderate F33.1 [facility] [id number] [place] [address] 16929- 8871 May, [facility] [id number] [place] [address] 30999- 8497 May, [facility] [id number] [place] [address] 02442- 9587 May, [facility] [id number] [place] [address] 39645- 0239 Apr, [facility] [id number] [place] [address] 42935- 8585 Apr, Post-traumatic stress disorder, unspecified F43.10 and Sleep apnea, obstructive G47.33 [facility] [id number] [place] [address] 93351- 6179 Apr, [facility] [id number] [place] [address] 59853- 7644 Apr, Shoulder pain, left M25.512 [facility] [id number] [place] [address] 47988- 1794 18 Apr, 2015 Post-traumatic stress disorder, unspecified F43.10 and Major depressive disorder, recurrent, moderate F33.1 [facility] [id number] [address] 5586 17 Apr, 2015 [facility] [id number] [place] [address] 45681- 5585 11 Apr, 2015 [facility] [id number] [place] [address] 25154- 2814 08 Apr, 2015 [facility] [id number] [place] [address] 30998- 1532 Apr, Left shoulder pain M25.512 [place] [facility] [id number] [place] [address] 07472- 2049 Mar, [facility] [id number] [place] [address] 001847- 1790 Mar, [facility] [id number] [place] [address] 28172- 2769 Mar, [facility] [id number] [place] [address] 29737- 8639 Mar, Sleep apnea, obstructive G47.33 ; Obesity E66.9 ; Chronic pain G89.29 ; Hyperlipidemia E78.5 ; HTN (hypertension) I10 ; Blindness and low vision H54.10 ; Major depressive disorder, recurrent, moderate F33.1 and Anxiety F41.9 [place] [id number] [place] [address] 86957- 5857 Mar, [facility] [facility] [id number] [place] [address] 67877- 0551 Mar, Post-traumatic stress disorder, unspecified F43.10 and Major depressive disorder, recurrent, moderate F33.1 [facility] [facility] [id number] [place] [address] 62381- 2254 Mar, [facility] [id number] [place] [address] 55867- 7816 Mar, HTN (hypertension) I10 ; Blindness and low vision H54.10 ; Obesity E66.9 ; Hyperlipidemia E78.5 ; Glaucoma H40.9 ; Chronic pain G89.29 and CAD (coronary artery disease) I25.10 [facility] [facility] [id number] [place] [address] 88767- 9702 Feb, [facility] [id number] [place] [address] 07472- 6100 Feb, Post-traumatic stress disorder, unspecified F43.10 ; Obesity E66.9 ; Sleep apnea, obstructive G47.33 and Open-angle glaucoma of both eyes H40.10X0 [facility] [facility] [id number] [place] [address] 13070- 1723 Feb, Post-traumatic stress disorder, unspecified F43.10 and Major depressive disorder, recurrent, moderate F33.1 [facility] [id number] [place] [address] 53583- 1682 Feb, [place] [id number] [place] [address] 02836- 2230 Feb, [facility] [id number] [place] [address] 06161- 9919 Feb, HTN (hypertension) I10 ; Post-traumatic stress disorder, unspecified F43.10 ; Blindness and low vision H54.10 ; Obesity E66.9 ; Hyperlipidemia E78.5 ; Chronic pain G89.29 ; Glaucoma H40.9 ; Mitral valve prolapse I34.1 and Bilateral headaches R51 [facility] [id number] [place] [address] 45404- 8468 Feb, [facility] [id number] [place] [address] 40418- 6500 Feb, Post-traumatic stress disorder, unspecified F43.10 and Major depressive disorder, recurrent, moderate F33.1 [facility] [id number] [place] [address] 01616- 3340 Feb, [facility] [id number] [place] [address] 00351- 5440 Feb, [facility] [id number] [place] [address] 79408- 5059 Jan, [facility] [id number] [place] [address] 12214- 5825 Jan, [facility] [id number] [place] [address] 28959- 6284 Jan, Obesity E66.9 ; HTN (hypertension) I10 ; Blindness and low vision H54.10 ; Major depressive disorder, recurrent, moderate F33.1 ; Glaucoma H40.9 ; Hyperlipidemia E78.5 ; Sleep apnea, obstructive G47.33 ; Chronic pain G89.29 ; Anxiety F41.9 ; Chronic tension headaches G44.229 and Cough R05 [facility] [facility] [id number] [place] [address] 29521- 5686 Jan, [place] [address]- [address] Jan, [address] [address] Jan, Post-traumatic stress disorder, unspecified F43.10 ; Obesity E66.9 ; Sleep apnea, obstructive G47.33 and Open-angle glaucoma of both eyes H40.10X0 [place] [id number] [place] [address] 21011- 5251 Jan, [place] [id number]- 5712 Jan, Post-traumatic stress disorder, unspecified F43.10 and Major depressive disorder, recurrent, moderate F33.1 [place] [id number] [place] [address] 73771- 2441 Dec, [place] [id number] [place] [address] 28211- 1204 Dec, Sleep apnea, obstructive G47.33 ; Obesity E66.9 ; Hyperlipidemia E78.5 ; Glaucoma H40.9 ; Chronic pain G89.29 ; HTN (hypertension ) I10 ; Blindness and low vision H54.10 ; Anxiety F41.9 and CAD (coronary artery disease) I25.10 [place] [id number]- 1044 Nov, [place] [id number] [place] [address] 03582- 6159 Nov, [place] [id number]- 2546 Nov, [facility] [id number] [place] [address] 58820- 9034 Nov, [facility] [id number] [place] [address] 81968- 3554 Nov, [facility] [address] [address]- [address]251 Nov, Encounter for immunization Z23 ; Sleep apnea, obstructive G47.33 ; Obesity E66.9 ; Hyperlipidemia E78.5 ; Glaucoma H40.9 ; Chronic pain G89.29 ; Anxiety F41.9 ; Chronic tension headaches G44.229 and HTN (hypertension ) I10 [facility] [id number] [place] [address] 20363- 9876 Nov, [facility] [id number] [place] [address] 19857- 7238 Nov, [facility] [address] 25904- 1487 Nov, Dizziness R42 [facility] [address] 14987- 5444 Nov, [facility] [id number] [place] [address] 41924- 3532 29 Oct, 2014 [facility] [id number] [place] [address] 49141- 7819 28 Oct, 2014 [facility] [id number] [place] [address] 30600- 6538 Oct, [facility] [id number] [place] [address] 31817- 7863 Oct, [facility] [id number] [place] [address] 46853- 5059 17 Oct, 2014 Dizziness 780.4 ; Essential hypertension 401.9 ; Obesity 278.00 ; Hyperlipidemia 272.4 ; Chronic pain 338.29 ; Glaucoma 365.9 and Anxiety 300.00 [facility] [id number] [address]- 5139 Oct, Essential hypertension 401.9 ; Hyperlipidemia 272.4 ; Glaucoma 365.9 ; Obesity 278.00 ; Chronic pain 338.29 and Allergy to insects V15.06 [facility] [id number] [address]- 1718 Sep, [facility] [id number] [place] [address] 23822- 9117 Sep, [facility] [id number] [place] [address] 93350- 8678 Sep, [facility] [id number] [place] [address] 44284- 2434 Sep, [facility] [id number] [place] [address] 33659- 8901 Aug, Essential hypertension 401.9 ; Obesity 278.00 ; Hyperlipidemia 272.4 ; Glaucoma 365.9 ; Lipoma 214.9 ; Mitral valve prolapse 424.0 ; Angina at rest 413.9 ; Lymphedema 457.1 and Chronic pain 338.29 IMMUNIZATIONS No Known Immunizations SOCIAL HISTORY Never Assessed REASON FOR VISIT Hydrocodone, alprazolam- 10/08 PLAN OF CARE VITAL SIGNS MEDICATIONS Medication Instructions Dosage Frequency Start Date End Date Duration Status Hydrocodone-Acetaminophen 7.5-325 MG Orally 4 times a day 1 tablet 6h Sep, 28 days Active Xanax 1 MG Orally Twice a day for anxiety 1 tablet Active RESULTS No Results PROCEDURES No Known [...]
--- OUTSIDE RECORDS SUMMARY | 2018-02-04 15:26 | XMS REPORT ---
Author Author KODAK YBARRA Organization [facility] Address [address] [place] [address] Care Team Providers Care General Scrap Worker Name Role Phone KODAK YBARRA Unavailable PROBLEMS Type Condition ICD9-CM Code IXW32-AG Code Onset Dates Condition Status SNOMED Code Problem Arrhythmia as indication for cardiac pacemaker replacement I49.9 Active 89549600 Problem Body mass index (BMI) of 40.0-44.9 in adult Z68.41 Active 855954833 Problem Primary insomnia F51.01 Active 5826219 Problem Sarcoidosis D86.9 Active 43255656 Problem Chronic pain G89.29 Active 59397829 Problem Chronic pain syndrome G89.4 Active 644142269 Problem Sleep apnea, obstructive G47.33 Active 12134607 Problem Hyperlipidemia E78.5 Active 10153909 Problem Other male erectile dysfunction N52.8 Active 904862084 Problem Morbid (severe) obesity due to excess calories E66.01 Active 668984890 Problem Migraine without aura and without status migrainosus, not intractable G43.009 Active 780609819 Problem 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 Active 156670307 Problem Chronic tension headaches G44.229 Active 446206570 Problem Anxiety F41.9 Active 87698922 Problem HTN (hypertension) I10 Active 80379642 Problem Blindness and low vision H54.10 Active 263582970 Problem Mitral valve prolapse I34.1 Active 115516643 Problem CAD (coronary artery disease) I25.10 Active 93883230 Problem Major depressive disorder, recurrent, moderate F33.1 Active 20977411 Problem Post-traumatic stress disorder, chronic F43.12 Active 466602196 Problem Myocarditis, unspecified chronicity, 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 Active 44967785 Problem Open-angle glaucoma of both eyes H40.10X0 Active 09455540 Problem Environmental allergies Z91.09 Active 709970366 ALLERGIES No Information ENCOUNTERS Encounter Location Date Diagnosis [facility] [id number] [place] [address] 29867- 9315 Aug, [facility] [id number] [place] [address] 63905- 1050 Jul, [facility] [id number] [place] [address] 33351- 9065 Jul, [facility] [id number] [place] [address] 20365- 1139 Jul, Post-traumatic stress disorder, unspecified F43.10 ; Major depressive disorder, recurrent, moderate F33.1 and Problems related to release from nursing home Z65.2 [facility] [id number] [place] [address] 93032- 0796 June, [facility] [id number] [place] [address] 79511 -1892 June, Sore throat J02.9 and BMI 40.0-44.9, adult Z68.41 [facility] [id number] [place] [address] 10839- 6481 June, [facility] [id number] [place] [address] 56508- 4408 June, [facility] [id number] [place] [address] 10522- 8869 June, [facility] [id number] [place] [address] 15409- 4549 June, Left leg pain M79.605 [facility] [id number] [place] [address] 78078- 6516 June, Sarcoidosis D86.9 [facility] [id number] [place] [address] 27848- 4804 June, [facility] [id number] [place] [address] 65082- 8328 June, [facility] [id number] [place] [address] 85624- 0351 June, Left leg pain M79.605 [facility] [address] [address] 3765 May, [facility] [id number] [place] [address] 75287- 7305 May, [facility] [id number] [place] [address] 12764- 4283 May, [facility] [id number] [place] [address] 29727- 3129 May, Left leg pain M79.605 [facility] [id number] [place] [address] 10263- 9732 May, Post-traumatic stress disorder, unspecified F43.10 ; Major depressive disorder, recurrent, moderate F33.1 and Problems related to release from nursing home Z65.2 [facility] [id number] [place] [address] 42384- 4269 May, Chronic pain G89.29 ; Anxiety F41.9 ; Chest pain, unspecified type R07.9 and BMI 40.0-44.9, adult Z68.41 [facility] [id number] [place] [address] 25980- 4502 Apr, [facility] [id number] [place] [address] 13398- 8300 Apr, Left leg pain M79.605 [facility] [id number] [place] [address] 28975- 5286 Apr, Post-traumatic stress disorder, unspecified F43.10 ; Problems related to release from nursing home Z65.2 ; Anxiety F41.9 and BMI 40.0-44.9 , adult Z68.41 [facility] [address] [place] [address] 47744- 9765 Apr, [facility] [id number] [place] [address] 18832- 0875 Apr, Left leg pain M79.605 [facility] [id number] [place] [address] 99849- 2462 13 Apr, 2017 Post-traumatic stress disorder, unspecified F43.10 ; Major depressive disorder, recurrent, moderate F33.1 and Problems related to release from nursing home Z65.2 [facility] [address] 89044- 7153 12 Apr, 2017 [facility] [facility] [address] 66461- 9178 12 Apr, 2017 Chronic pain G89.29 ; 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 ; Morbid (severe) obesity due to excess calories E66.01 ; Anxiety F41.9 and BMI 40.0-44.9, adult Z68.41 [facility] [address] 00779 -9777 10 Apr, 2017 Sore throat J02.9 and BMI 40.0-44.9, adult Z68.41 [place] [address] 55425- 5568 02 Apr, 2017 Left leg pain M79.605 [facility] [address] [id number] 28 Mar, 2017 Dental examination Z01.[address] 20064- 7532 Mar, [facility] [address] [place] [address] 91914 -5788 20 Mar, 2017 Cough R05 ; Viral gastroenteritis A08.4 and BMI 40.0-44.9, adult Z68.41 [facility] [address] 93654- 1822 19 Mar, 2017 Left leg pain M79.605 [facility] [facility] [address] 66193- 6853 06 Mar, 2017 Post-traumatic stress disorder, unspecified F43.10 ; Major depressive disorder, recurrent, moderate F33.1 and Problems related to release from nursing home Z65.2 [facility] [address] [place] [address] 30275- 5695 Feb, Left leg pain M79.605 [facility] [id number] [place] [address] 67105- 4252 Feb, [facility] [id number] [place] [address] 53829- 7922 Feb, BMI 40.0-44.9, adult Z68.41 ; Chronic pain syndrome G89.4 ; Migraine without aura and without status migrainosus, not intractable G43.009 ; Mitral valve prolapse I34.1 and 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 [facility] [id number] [place] [address] 99755- 2255 Feb, Post-traumatic stress disorder, chronic F43.12 ; Anxiety F41.9 ; Problems related to release from nursing home Z65.2 and BMI 40.0-44.9, adult Z68.41 [facility] [id number] [place] [address] 21161- 3386 Feb, Post-traumatic stress disorder, unspecified F43.10 ; Major depressive disorder, recurrent, moderate F33.1 and Problems related to release from nursing home Z65.2 [facility] [address] [address] 2005 Feb, Left leg pain M79.605 [facility] [id number] [place] [address] 01048- 1233 Jan, Post-traumatic stress disorder, unspecified F43.10 ; Major depressive disorder, recurrent, moderate F33.1 and Problems related to release from nursing home Z65.2 [facility] [id number] [place] [address] 01675- 5530 Jan, [facility] [id number] [address]- 1230 Jan, [facility] [address] [place] [address]- 0425 Jan, Anxiety F41.9 [facility] [id number] [place] [address] 56593- 7743 13 Jan, 2017 Left leg pain M79.605 [facility] [id number] [place] [address] 70663- 4891 Dec, Left leg pain M79.605 [facility] [id number] [place] [address] 14392- 4877 Dec, [facility] [id number] [place] [address] 96739- 7903 15 Dec, 2016 Post-traumatic stress disorder, unspecified F43.10 ; Major depressive disorder, recurrent, moderate F33.1 and Problems related to release from nursing home Z65.2 [facility] [id number] [place] [address] 16576- 0316 31 Nov, 2016 Chronic pain G89.29 and Anxiety F41.9 [facility] [id number] [place] [address] 96657- 1140 24 Nov, 2016 Chronic pain G89.29 and Anxiety F41.9 [facility] [id number] [place] [address] 19379- 0654 16 Nov, 2016 Post-traumatic stress disorder, unspecified F43.10 ; Major depressive disorder, recurrent, moderate F33.1 and Problems related to release from nursing home Z65.2 [facility] [address] [place] [address] 90009- 5112 09 Nov, 2016 Other abnormal findings in specimens from other organs, systems and tissues R89.8 ; Other male erectile dysfunction N52.8 ; Body mass index (BMI) of 40.0-44.9 in adult Z68.41 and Morbid (severe) obesity due to excess calories E66.01 [facility] [address] [place] [address] 61643- 6912 02 Nov, 2016 Post-traumatic stress disorder, unspecified F43.10 ; Major depressive disorder, recurrent, moderate F33.1 and Problems related to release from nursing home Z65.2 [facility] [id number] [address] 29 Oct, 2016 Dental examination Z01.20 [facility] [address], [place] [address]- 3419 28 Oct, 2016 [facility] [address] [place] [address] 95192- 7885 28 Oct, 2016 Encounter for immunization Z23 [facility] [id number] [place] [address] 69203- 0369 Oct, Chronic pain G89.29 ; Anxiety F41.9 ; Arrhythmia as indication for cardiac pacemaker replacement I49.9 and Glaucoma H40.9 [facility] [facility] [address], [place] [address] 1969 Oct, Anxiety F41.9 ; Post-traumatic stress disorder, chronic F43.12 and Problems related to release from nursing home Z65.2 [facility] [address] [place] [address] 11213- 5084 Oct, Post-traumatic stress disorder, unspecified F43.10 ; Major depressive disorder, recurrent, moderate F33.1 and Problems related to release from nursing home Z65.2 [facility] [address], [place] [address]- 1689 Sep, Chronic pain G89.29 and Anxiety F41.9 [facility] [address] [place] [address] 42970- 3989 Sep, Post-traumatic stress disorder, unspecified F43.10 ; Major depressive disorder, recurrent, moderate F33.1 and Problems related to release from nursing home Z65.2 [facility] [address] [place] [address] 95272- 9119 Sep, Post-traumatic stress disorder, unspecified F43.10 ; Major depressive disorder, recurrent, moderate F33.1 and Problems related to release from nursing home Z65.2 [facility] [id number] [address]- 6487 Sep, Chronic pain G89.29 [facility] [id number] [place] [address] 57631- 5793 Aug, Dental caries, unspecified K02.9 [facility] [address] [place] [address] 91850- 8028 Aug, Sleep apnea, obstructive G47.33 ; Obesity E66.9 ; Chronic pain G89.29 ; HTN (hypertension) I10 ; Major depressive disorder, recurrent, moderate F33.1 ; Anxiety F41.9 ; Chronic tension headaches G44.229 ; Mitral valve prolapse I34.1 ; Arrhythmia as indication for cardiac pacemaker replacement I49.9 ; Dental caries, unspecified K02.9 ; Primary insomnia F51.01 and Hyperlipidemia E78.5 [facility] [id number] [place] [address] 65681- 8684 Aug, Post-traumatic stress disorder, unspecified F43.10 ; Major depressive disorder, recurrent, moderate F33.1 and Problems related to release from nursing home Z65.2 [facility] [address] [place] [address] 28108- 4827 Aug, Dental examination Z01.20 [facility] [address] [place] [address] [id number] 13 Aug, 2016 Dental examination Z01.20 [facility] [address] [place] [address] 47536- 9313 06 Aug, 2016 Post-traumatic stress disorder, unspecified F43.10 ; Major depressive disorder, recurrent, moderate F33.1 and Problems related to release from nursing home Z65.2 [facility] [id number] [place] [address] 78086- 0080 05 Aug, 2016 Chronic pain G89.29 and Primary insomnia F51.01 [facility] [address] [place] [address] 52408- 9941 Jul, [facility] [id number] [place] [address] 27979- 2295 Jul, [facility] [address] [place] [address] 04443- 5770 Jul, Nausea R11.0 [facility] [id number] [place] [address] 18389- 3739 Jul, Arrhythmia as indication for cardiac pacemaker replacement I49.9 [facility] [id number] [place] [address] 50755- 6158 13 Jul, 2016 Post-traumatic stress disorder, unspecified F43.10 ; Major depressive disorder, recurrent, moderate F33.1 and Problems related to release from nursing home Z65.2 [address] [address] [id number] [place] [address] 86656- 1624 09 Jul, 2016 Anxiety F41.9 [address] [id number] [place] [address] 93330- 3323 08 Jul, 2016 Chronic pain G89.29 [address] [id number] [place] [address] 35681- 9374 02 Jul, 2016 Sleep apnea, obstructive G47.33 ; Hyperlipidemia E78.5 ; Chronic pain G89.29 ; Blindness and low vision H54.10 ; Major depressive disorder, recurrent, moderate F33.1 ; Anxiety F41.9 ; Mitral valve prolapse I34.1 ; Arrhythmia as indication for cardiac pacemaker replacement I49.9 ; Primary insomnia F51.01 ; Bilateral headaches R51 and Environmental allergies Z91.09 [address] [place] [address] 27409- 1605 Jul, Post-traumatic stress disorder, unspecified F43.10 ; Major depressive disorder, recurrent, moderate F33.1 and Problems related to release from nursing home Z65.2 [address] [place] [address] 58240- 3604 June, Post-traumatic stress disorder, chronic F43.12 ; Anxiety F41.9 ; Problems related to release from nursing home Z65.2 ; Sleep apnea, obstructive G47.33 and Primary insomnia F51.01 [facility] [address], [place] [address]- 5603 June, [facility] [id number] [place] [address] 69049- 1907 June, [facility] [id number] [place] [address] 60633- 7002 June, [facility] [id number] [place] [address] 62738- 1234 June, Chronic pain G89.29 [facility] [id number] [place] [address] 98665- 7428 June, Chronic pain G89.29 [address] [id number] [place] [address] 75469- 8896 June, Lipoma of left lower extremity D17.24 ; Open wound T14.8 and Swelling of left lower extremity M79.89 [address] [address] [id number] [place] [address] 84725- 9838 June, Post-traumatic stress disorder, unspecified F43.10 ; Major depressive disorder, recurrent, moderate F33.1 and Problems related to release from nursing home Z65.2 [address] [place] [address] 34182- 8029 May, Lipoma of left lower extremity D17.24 ; Major depressive disorder, recurrent, moderate F33.1 ; Sleep apnea, obstructive G47.33 ; Hyperlipidemia E78.5 ; Obesity E66.9 ; HTN (hypertension) I10 ; Glaucoma H40.9 ; CAD (coronary artery disease) I25.10 ; Chronic tension headaches G44.229 ; Chronic pain G89.29 ; Anxiety F41.9 ; Nausea R11.0 and Primary insomnia F51.01 [facility] [place] [address] [place] [address] 25739- 0961 May, [address] [id number] [place] [address] 43515- 5263 May, Chronic pain G89.29 [facility] [address], [place] [address]- 8681 May, [facility] [id number] [place] [address] 98571- 9738 31 Apr, 2016 Post-traumatic stress disorder, unspecified F43.10 ; Major depressive disorder, recurrent, moderate F33.1 and Problems related to release from nursing home Z65.2 [facility] [id number] [place] [address] 52469- 7644 Apr, Primary insomnia F51.01 ; Post-traumatic stress disorder, chronic F43.12 and Problems related to release from nursing home Z65.2 [address] [id number] [place] [address] 17159- 5611 17 Apr, 2016 Post-traumatic stress disorder, unspecified F43.10 ; Major depressive disorder, recurrent, moderate F33.1 and Problems related to release from nursing home Z65.2 [facility] [id number] [place] [address] 26805- 2717 16 Apr, 2016 [facility] [place] [address] [place] [address] 15909- 2658 Apr, Sleep apnea, obstructive G47.33 ; Chronic pain G89.29 ; HTN (hypertension) I10 ; Mitral valve prolapse I34.1 ; Shoulder pain, left M25.512 ; Arrhythmia as indication for cardiac pacemaker replacement I49.9 ; Glaucoma H40.9 ; Bilateral headaches R51 ; Environmental allergies Z91.09 ; Primary insomnia F51.01 and Nausea R11.0 [facility] [address], [place] [address]- 9339 Apr, [place] [id number] [place] [address] 44223- 5394 Apr, [facility] [address] [place] [address] 00691- 5768 Apr, Post-traumatic stress disorder, unspecified F43.10 ; Major depressive disorder, recurrent, moderate F33.1 and Problems related to release from nursing home Z65.2 [facility] [facility] [address], [place] [address]- 7221 Apr, HTN (hypertension) I10 [facility] [id number] [place] [address] 91611- 1275 Apr, HTN (hypertension) I10 [facility] [id number] [address]- 9910 Mar, Chronic pain G89.29 ; Primary insomnia F51.01 and Problems related to release from nursing home Z65.2 [facility] [id number] [place] [address] 94311- 0284 07 Mar, 2016 Post-traumatic stress disorder, unspecified F43.10 ; Major depressive disorder, recurrent, moderate F33.1 and Problems related to release from nursing home Z65.2 [facility] [id number] [place] [address] 02672- 9647 Feb, Post-traumatic stress disorder, unspecified F43.10 ; Major depressive disorder, recurrent, moderate F33.1 and Problems related to release from nursing home Z65.2 [facility] [id number] [place] [address] 43438- 4386 Feb, Chronic tension headaches G44.229 [facility] [id number] [place] [address] 69996- 8744 Feb, Sleep apnea, obstructive G47.33 ; Obesity [...] I49.9 and Primary insomnia F51.01 [facility] [address] [address]- 7642 Feb, Post-traumatic stress disorder, unspecified F43.10 and Chronic pain G89.29 [facility] [address], [place] [address]- 7952 Feb, [facility] [address] [address] Feb, Dental caries K02.9 [facility] [address] [address]- 8945 Feb, [facility] [id number] [place] [address] 92979- 4503 Feb, Post-traumatic stress disorder, unspecified F43.10 ; Major depressive disorder, recurrent, moderate F33.1 and Problems related to release from nursing home Z65.2 [facility] [id number] [place] [address] 35166- 8850 Jan, Sleep apnea, obstructive G47.33 and Chronic pain G89.29 [facility] [id number] [place] [address] 19932- 8155 Jan, [facility] [id number] [place] [address] 23107- 5155 Jan, Dental examination Z01.20 [facility] [id number] [place] [address] 99146- 5321 Jan, [facility] [address], [place] [address]- 5582 Jan, [facility] [id number] [place] [address] 69154- 4599 Dec, Post-traumatic stress disorder, unspecified F43.10 ; Major depressive disorder, recurrent, moderate F33.1 and Problems related to release from nursing home Z65.2 [facility] [address] [place] [address] 13104- 0070 Dec, Encounter for immunization Z23 ; Problems related to release from nursing home Z65.2 ; Sleep apnea, obstructive G47.33 and Post-traumatic stress disorder, chronic F43.[address] [facility] [address] 92770- 5123 Dec, Sleep apnea, obstructive G47.33 ; Hyperlipidemia E78.5 ; Chronic pain G89.29 ; Glaucoma H40.9 ; HTN (hypertension) I10 ; Post-traumatic stress disorder, unspecified F43.10 ; Anxiety F41.9 ; Chronic tension headaches G44.229 ; Mitral valve prolapse I34.1 and CAD (coronary artery disease) I25.[address] 17299- 8980 Dec, Post-traumatic stress disorder, unspecified F43.10 ; Major depressive disorder, recurrent, moderate F33.1 and Problems related to release from nursing home Z65.[address] 27366- 9155 Nov, Chronic pain G89.[address] 34958- 9870 Nov, Post-traumatic stress disorder, unspecified F43.10 ; Major depressive disorder, recurrent, moderate F33.1 and Problems related to release from nursing home Z65.[address] 30032- 4486 Oct, [address] 10260- 0256 23 Oct, [address] 48444- 2116 16 Oct, 2015 Post-traumatic stress disorder, unspecified F43.10 ; Major depressive disorder, recurrent, moderate F33.1 and Problems related to release from nursing home Z65.[address] 53152- 5830 08 Oct, [address] 37067- 1764 07 Oct, 2015 Environmental allergies Z91.09 ; Cough R05 and Open-angle glaucoma of both eyes H40.10X0 [address] [id number] [address]- 6116 Sep, [facility] [id number] [place] [address] 99967- 8801 Sep, Post-traumatic stress disorder, unspecified F43.10 ; Major depressive disorder, recurrent, moderate F33.1 and Problems related to release from nursing home Z65.2 [facility] [id number] [place] [address] 35419- 9295 Sep, Chronic pain G89.29 [facility] [id number] [place] [address] [id number] Sep, Pain in left shoulder M25.512 ; Pain in right shoulder M25.511 and Other chronic pain G89.29 [facility] [id number] [place] [address] [phone] Sep, [facility] [id number] [place] [address] [phone] Sep, [facility] [address] [id number] [place] [address] 62654- 4631 Sep, [facility] [id number] [place] [id number] Aug, Dental examination Z01.20 [facility] [id number] [place] [address] 79379- 2535 Aug, Post-traumatic stress disorder, unspecified F43.10 ; Open- angle glaucoma of both eyes H40.10X0 and Problems related to release from nursing home Z65.2 [facility] [id number] [address] Aug, [place] [address] [place] [id number] [place] [address] 41141- 4032 Aug, Sleep apnea, obstructive G47.33 ; Obesity E66.9 ; Hyperlipidemia E78.5 ; Bilateral headaches R51 ; HTN (hypertension) I10 ; Post- traumatic stress disorder, unspecified F43.10 ; Anxiety F41.9 ; Neuropathy G62.9 ; Glaucoma H40.9 and Chronic pain G89.29 [facility] [id number] [id number] Aug, Encounter for dental examination Z01.20 [facility] [id number] [place] [address] 61427- 2993 08 Aug, 2015 Post-traumatic stress disorder, unspecified F43.10 ; Major depressive disorder, recurrent, moderate F33.1 and Problems related to release from nursing home Z65.2 [facility] [id number] [place] [address] 04804- 3415 Aug, [facility] [id number] [place] [address] 66382- 8722 Jul, [facility] [id number] [place] [address] 29382- 6374 Jul, Post-traumatic stress disorder, unspecified F43.10 and Major depressive disorder, recurrent, moderate F33.1 [facility] [id number] [address] 1190 Jul, [facility] [id number] [place] [address] 25694- 6537 Jul, [facility] [id number] [place] [address] 31765- 3359 Jul, Chronic pain G89.29 [facility] [id number] [place] [address] 98035- 2208 June, Post-traumatic stress disorder, unspecified F43.10 and Major depressive disorder, recurrent, moderate F33.1 [facility] [id number] [place] [address] 31588- 2207 June, [facility] [id number] [place] [address] 27693- 0769 June, Chronic pain G89.29 [facility] [id number] [place] [address] 14555- 7744 June, Post-traumatic stress disorder, unspecified F43.10 and Major depressive disorder, recurrent, moderate F33.1 [facility] [id number] [place] [address] 70388- 3207 May, Post-traumatic stress disorder, unspecified F43.10 and Major depressive disorder, recurrent, moderate F33.1 [facility] [id number] [place] [address] 22010- 8588 May, [facility] [id number] [place] [address] 59856- 4066 May, [facility] [id number] [place] [address] 46131- 0511 May, [facility] [id number] [place] [address] 37477- 0032 Apr, [facility] [id number] [place] [address] 73391- 2363 Apr, Post-traumatic stress disorder, unspecified F43.10 and Sleep apnea, obstructive G47.33 [facility] [id number] [place] [address] 96563- 1183 Apr, [facility] [id number] [place] [address] 42782- 5276 Apr, Shoulder pain, left M25.512 [facility] [id number] [place] [address] 21263- 3789 Apr, Post-traumatic stress disorder, unspecified F43.10 and Major depressive disorder, recurrent, moderate F33.1 [facility] [id number] [place] [address] 18045- 4945 17 Apr, 2015 [facility] [id number] [place] [address] 84675- 7237 Apr, [facility] [id number] [place] [address] 69671- 2705 Apr, [facility] [id number] [place] [address] 48956- 0907 Apr, Left shoulder pain M25.512 [place] [id number] [place] [address] 31135- 7292 Mar, [place] [id number] [place] [address] 78673- 8328 Mar, [place] [address] 81067- 9163 Mar, [place] [id number] [place] [address] 91052- 1804 Mar, Sleep apnea, obstructive G47.33 ; Obesity E66.9 ; Chronic pain G89.29 ; Hyperlipidemia E78.5 ; HTN (hypertension) I10 ; Blindness and low vision H54.10 ; Major depressive disorder, recurrent, moderate F33.1 and Anxiety F41.9 [place] [id number] [place] [address] 60487- 1513 Mar, [place] [id number] [place] [address] 63972- 6473 Mar, Post-traumatic stress disorder, unspecified F43.10 and Major depressive disorder, recurrent, moderate F33.1 [place] [id number] [place] [address] 65757- 8618 Mar, [place] [id number] [place] [address] 60049- 3056 Mar, HTN (hypertension) I10 ; Blindness and low vision H54.10 ; Obesity E66.9 ; Hyperlipidemia E78.5 ; Glaucoma H40.9 ; Chronic pain G89.29 and CAD (coronary artery disease) I25.10 [place] [id number] [place] [address] 20991- 5055 Feb, [place] [id number] [place] [address] 93054- 1004 Feb, Post-traumatic stress disorder, unspecified F43.10 ; Obesity E66.9 ; Sleep apnea, obstructive G47.33 and Open-angle glaucoma of both eyes H40.10X0 [place] [address] 99569- 0275 Feb, Post-traumatic stress disorder, unspecified F43.10 and Major depressive disorder, recurrent, moderate F33.1 [place] [address] 23212- 8707 Feb, [place] [address] 79053- 3523 Feb, [place] [address] 90965- 3447 Feb, HTN (hypertension) I10 ; Post-traumatic stress disorder, unspecified F43.10 ; Blindness and low vision H54.10 ; Obesity E66.9 ; Hyperlipidemia E78.5 ; Chronic pain G89.29 ; Glaucoma H40.9 ; Mitral valve prolapse I34.1 and Bilateral headaches R51 [place] [address] 11555- 6972 Feb, [place] [address] 19137- 8548 Feb, Post-traumatic stress disorder, unspecified F43.10 and Major depressive disorder, recurrent, moderate F33.1 [place] [id number] [place] [address] 16006- 5829 Feb, [place] [id number] [place] [address] 68370- 6146 Feb, [place] [address] 80879- 9123 Jan, [place] [address] 29085- 4268 Jan, [place] [address] 95798- 7666 Jan, Obesity E66.9 ; HTN (hypertension) I10 ; Blindness and low vision H54.10 ; Major depressive disorder, recurrent, moderate F33.1 ; Glaucoma H40.9 ; Hyperlipidemia E78.5 ; Sleep apnea, obstructive G47.33 ; Chronic pain G89.29 ; Anxiety F41.9 ; Chronic tension headaches G44.229 and [address]ough [address] [place] [address]- 729 Jan, [place] [address] [place] [address] 122230- 1676 Jan, [place] [address] 4538 Jan, Post-traumatic stress disorder, unspecified F43.10 ; Obesity E66.9 ; Sleep apnea, obstructive G47.33 and Open-angle glaucoma of both eyes H40.10X0 [place] [address]- 6927 Jan, [place] [address]- 9962 Jan, Post-traumatic stress disorder, unspecified F43.10 and Major depressive disorder, recurrent, moderate F33.1 [place] [id number] [place] [address]183 Dec, [place] [address]420- 4373 Dec, Sleep apnea, obstructive G47.33 ; Obesity E66.9 ; Hyperlipidemia E78.5 ; Glaucoma H40.9 ; Chronic pain G89.29 ; HTN (hypertension ) I10 ; Blindness and low vision H54.10 ; Anxiety F41.9 and CAD (coronary artery disease) I25.10 [place] [id number] [place] [id number]- 2663 Nov, [place] [id number]- 2561 Nov, [facility] [id number] [place] [address] 99835- 4337 Nov, [facility] [id number] [place] [address] 48526- 3338 Nov, [facility] [id number] [place] [address] 88552- 6212 Nov, [facility] [address] 72525- 0323 Nov, Encounter for immunization Z23 ; Sleep apnea, obstructive G47.33 ; Obesity E66.9 ; Hyperlipidemia E78.5 ; Glaucoma H40.9 ; Chronic pain G89.29 ; Anxiety F41.9 ; Chronic tension headaches G44.229 and HTN (hypertension ) I10 [facility] [id number] [place] [address] 81970- 9055 Nov, [facility] [address] 65121- 1790 Nov, [facility] [id number] [place] [address] 04437- 8842 Nov, Dizziness R42 [facility] [id number] [place] [address] 87218- 4641 Nov, [facility] [id number] [place] [address] 25063- 0333 29 Oct, 2014 [facility] [id number] [place] [address] 08274- 9192 28 Oct, 2014 [facility] [id number] [place] [address] 48073- 4504 Oct, [facility] [address] 95964- 3519 Oct, [facility] [id number] [place] [address] 11668- 2365 17 Oct, 2014 Dizziness 780.4 ; Essential hypertension 401.9 ; Obesity 278.00 ; Hyperlipidemia 272.4 ; Chronic pain 338.29 ; Glaucoma 365.9 and Anxiety 300.00 [facility] [address] [address] 0474 Oct, Essential hypertension 401.9 ; Hyperlipidemia 272.4 ; Glaucoma 365.9 ; Obesity 278.00 ; Chronic pain 338.29 and Allergy to insects V15.06 [facility] [address], [place] [address]- 8680 Sep, [facility] [id number] [place] [address] 39145- 8972 Sep, [facility] [id number] [place] [address] 14372- 2934 Sep, [facility] [id number] [place] [address] 53511- 8949 Sep, [facility] [id number] [place] [address] 74417- 8443 Aug, Essential hypertension 401.9 ; Obesity 278.00 ; Hyperlipidemia 272.4 ; Glaucoma 365.9 ; Lipoma 214.9 ; Mitral valve prolapse 424.0 ; Angina at rest 413.9 ; Lymphedema 457.1 and Chronic pain 338.29 IMMUNIZATIONS No Known Immunizations SOCIAL HISTORY Never Assessed REASON FOR VISIT Oxycodone and Hydrocodone 01/28 PLAN OF CARE VITAL SIGNS MEDICATIONS Medication Instructions Dosage Frequency Start Date End Date Duration Status Oxycodone HCl 10 mg Orally 2 times a day 1 tablet as needed 12h Jan, 30 days Active Hydrocodone-Acetaminophen 7.5-325 MG Orally 4 times a day 1 tablet 6h Jan, 28 days Active RESULTS No Results [...]
--- OUTSIDE RECORDS SUMMARY | 2018-02-04 15:26 | XMS REPORT ---
Author Author KODAK YBARRA Organization [facility] Address [address] [place] [address] Care Team Providers Care Blood Donor Unit Assistant Name Role Phone KODAK YBARRA Unavailable PROBLEMS Type Condition ICD9-CM Code [id number] Code Onset Dates Condition Status SNOMED Code Problem Arrhythmia as indication for cardiac pacemaker replacement I49.9 Active 65739654 Problem Body mass index (BMI) of 40.0-44.9 in adult Z68.41 Active 473667397 Problem Primary insomnia F51.01 Active 6000873 Problem Sarcoidosis D86.9 Active 50461813 Problem Chronic pain G89.29 Active 96795601 Problem Chronic pain syndrome G89.4 Active 756026282 Problem Sleep apnea, obstructive G47.33 Active 96215466 Problem Hyperlipidemia E78.5 Active 75590325 Problem Other male erectile dysfunction N52.8 Active 967168417 Problem Morbid (severe) obesity due to excess calories E66.01 Active 657722762 Problem Migraine without aura and without status migrainosus, not intractable G43.009 Active 055597916 Problem 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 Active 382512670 Problem Chronic tension headaches G44.229 Active 675305185 Problem Anxiety F41.9 Active 05155409 Problem HTN (hypertension) I10 Active 70462946 Problem Blindness and low vision H54.10 Active 050746091 Problem Mitral valve prolapse I34.1 Active 700787036 Problem CAD (coronary artery disease) I25.10 Active 63986390 Problem Major depressive disorder, recurrent, moderate F33.1 Active 50140382 Problem Post-traumatic stress disorder, chronic F43.12 Active 409898592 Problem Myocarditis, unspecified chronicity, 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 Active 54739980 Problem Open-angle glaucoma of both eyes H40.10X0 Active 01937812 Problem Environmental allergies Z91.09 Active 264819554 ALLERGIES No Information ENCOUNTERS Encounter Location Date Diagnosis [facility] [id number] [place] [address] 37795- 2393 Aug, [facility] [address] 73518- 7422 Jul, [facility] [address] 37550- 1390 Jul, HTN (hypertension) I10 ; Body mass index (BMI) of 40.0-44.9 in adult Z68.41 and Acute swimmer''s ear of both sides H60.333 [facility] [id number] [place] [address] 82451- 5608 Jul, Glaucoma H40.9 [facility] [address] 44616- 0287 Jul, [facility] [address] 99596- 4339 13 Jul, 2017 Sarcoidosis D86.9 [facility] [address] 06556- 5752 Jul, Left leg pain M79.605 [facility] [address] 01772- 7572 Jul, Sarcoidosis D86.9 [facility] [id number] [place] [address] 35808- 9716 Jul, Post-traumatic stress disorder, unspecified F43.10 ; Major depressive disorder, recurrent, moderate F33.1 and Problems related to release from assisted Z65.2 [facility] [id number] [place] [address] 37445- 2771 June, [facility] [address] 50154 -0845 June, Sore throat J02.9 and BMI 40.0-44.9, adult Z68.41 [facility] [id number] [place] [address] 27950- 1533 June, [facility] [id number] [place] [address] 286[address] June, [facility] [id number] [place] [address] 05[address] June, [facility] [id number] [address] 1801 June, Left leg pain M79.605 [facility] [id number] [place] [address] 25554- 9223 June, Sarcoidosis D86.9 [facility] [id number] [place] [address] 43423- 8053 June, [facility] [id number] [place] [address] 30122- 8832 June, [facility] [id number] [place] [address] 8253 June, Left leg pain M79.605 [facility] [id number] [place] [address] 5861 May, [facility] [id number] [place] [address] 93705- 9720 May, [facility] [id number] [address] 5053 May, [facility] [id number] [address]- 9099 May, Left leg pain M79.605 [facility] [id number] [address] 53[address] May, Post-traumatic stress disorder, unspecified F43.10 ; Major depressive disorder, recurrent, moderate F33.1 and Problems related to release from assisted Z65.2 [facility] [id number] [address] 29[address] May, Chronic pain G89.29 ; Anxiety F41.9 ; Chest pain, unspecified type R07.9 and BMI 40.0-44.9, adult Z68.41 [facility] [id number] [place] [address] 00513- 1597 30 Apr, 2017 [facility] [id number] [place] [address] 25385- 0044 Apr, Left leg pain M79.605 [facility] [id number] [place] [address] 91766- 8123 Apr, Post-traumatic stress disorder, unspecified F43.10 ; Problems related to release from assisted Z65.2 ; Anxiety F41.9 and BMI 40.0-44.9 , adult Z68.41 [facility] [address] 20685- 8560 Apr, [facility] [id number] [place] [address] 20785- 5966 Apr, Left leg pain M79.605 [facility] [address] 32241- 8213 Apr, Post-traumatic stress disorder, unspecified F43.10 ; Major depressive disorder, recurrent, moderate F33.1 and Problems related to release from assisted Z65.2 [facility] [id number] [place] [address] 43719- 0011 Apr, [facility] [id number] [place] [address] 44785- 0553 Apr, Chronic pain G89.29 ; 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 ; Morbid (severe) obesity due to excess calories E66.01 ; Anxiety F41.9 and BMI 40.0-44.9, adult Z68.41 [facility] [id number] [place] [address] 53775 -0264 10 Apr, 2017 Sore throat J02.9 and BMI 40.0-44.9, adult Z68.41 [facility] [id number] [place] [address] 87847- 3190 02 Apr, 2017 Left leg pain M79.605 [facility] [id number] [place] [address] [id number] Mar, Dental examination Z01.20 [facility] [id number] [place] [address] 44631- 2351 Mar, [facility] [id number] [place] [address] 67618 -3160 Mar, Cough R05 ; Viral gastroenteritis A08.4 and BMI 40.0-44.9, adult Z68.41 [facility] [id number] [place] [address] 97842- 8843 Mar, Left leg pain M79.605 [facility] [id number] [place] [address] 73742- 4517 Mar, Post-traumatic stress disorder, unspecified F43.10 ; Major depressive disorder, recurrent, moderate F33.1 and Problems related to release from assisted Z65.2 [facility] [id number] [place] [address] 93731- 4078 Feb, Left leg pain M79.605 [facility] [id number] [place] [address] 10294- 0025 Feb, [facility] [id number] [place] [address] 85799- 6851 Feb, BMI 40.0-44.9, adult Z68.41 ; Chronic pain syndrome G89.4 ; Migraine without aura and without status migrainosus, not intractable G43.009 ; Mitral valve prolapse I34.1 and 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 [facility] [id number] [place] [address] 73468- 7595 Feb, Post-traumatic stress disorder, chronic F43.12 ; Anxiety F41.9 ; Problems related to release from assisted Z65.2 and BMI 40.0-44.9, adult Z68.41 [facility] [address] 98188- 8894 Feb, Post-traumatic stress disorder, unspecified F43.10 ; Major depressive disorder, recurrent, moderate F33.1 and Problems related to release from assisted Z65.2 [facility] [id number] [place] [address] 70145- 6216 Feb, Left leg pain M79.605 [facility] [id number] [place] [address] 67980- 8956 Jan, Post-traumatic stress disorder, unspecified F43.10 ; Major depressive disorder, recurrent, moderate F33.1 and Problems related to release from assisted Z65.2 [facility] [id number] [place] [address] 93166- 7936 Jan, [facility] [id number] [place] [address] 74642- 9057 Jan, [facility] [id number] [place] [address] 51348- 2857 Jan, Anxiety F41.9 [facility] [id number] [place] [address] 41095- 5990 Jan, Left leg pain M79.605 [facility] [id number] [place] [address] 30537- 6026 Dec, Left leg pain M79.605 [facility] [id number] [place] [address] 25089- 1226 Dec, [facility] [id number] [place] [address] 059463- 6523 Dec, Post-traumatic stress disorder, unspecified F43.10 ; Major depressive disorder, recurrent, moderate F33.1 and Problems related to release from assisted Z65.2 [facility] [id number] [place] [address] 21353- 4142 Nov, Chronic pain G89.29 and Anxiety F41.9 [facility] [id number] [place] [address] 74404- 0017 Nov, Chronic pain G89.29 and Anxiety F41.9 [facility] [address] 59689- 9734 16 Nov, 2016 Post-traumatic stress disorder, unspecified F43.10 ; Major depressive disorder, recurrent, moderate F33.1 and Problems related to release from assisted Z65.2 [facility] [address] 92690- 3340 09 Nov, 2016 Other abnormal findings in specimens from other organs, systems and tissues R89.8 ; Other male erectile dysfunction N52.8 ; Body mass index (BMI) of 40.0-44.9 in adult Z68.41 and Morbid (severe) obesity due to excess calories E66.01 [facility] [address] 60478- 6831 02 Nov, 2016 Post-traumatic stress disorder, unspecified F43.10 ; Major depressive disorder, recurrent, moderate F33.1 and Problems related to release from assisted Z65.2 [facility] [address] [id number] 29 Oct, 2016 Dental examination Z01.[address] 36621- 8854 Oct, [facility] [address] 95287- 4317 28 Oct, 2016 Encounter for immunization Z23 [address] 09081- 9614 Oct, Chronic pain G89.29 ; Anxiety F41.9 ; Arrhythmia as indication for cardiac pacemaker replacement I49.9 and Glaucoma H40.[address] 78395- 2668 Oct, Anxiety F41.9 ; Post-traumatic stress disorder, chronic F43.12 and Problems related to release from assisted Z65.[address] 81254- 3679 Oct, Post-traumatic stress disorder, unspecified F43.10 ; Major depressive disorder, recurrent, moderate F33.1 and Problems related to release from assisted Z65.2 [facility] [id number] [place] [address] 85953- 4548 Sep, Chronic pain G89.29 and Anxiety F41.9 [id number] [place] [address] 97212- 1397 Sep, Post-traumatic stress disorder, unspecified F43.10 ; Major depressive disorder, recurrent, moderate F33.1 and Problems related to release from assisted Z65.2 [address] [id number] [place] [address] 59110- 3513 Sep, Post-traumatic stress disorder, unspecified F43.10 ; Major depressive disorder, recurrent, moderate F33.1 and Problems related to release from assisted Z65.2 [address] [id number] [place] [address] 81841- 5215 Sep, Chronic pain G89.29 [facility] [id number] [place] [address] 62840- 6951 Aug, Dental caries, unspecified K02.9 [address] [id number] [place] [address] 02248- 0413 Aug, Sleep apnea, obstructive G47.33 ; Obesity E66.9 ; Chronic pain G89.29 ; HTN (hypertension) I10 ; Major depressive disorder, recurrent, moderate F33.1 ; Anxiety F41.9 ; Chronic tension headaches G44.229 ; Mitral valve prolapse I34.1 ; Arrhythmia as indication for cardiac pacemaker replacement I49.9 ; Dental caries, unspecified K02.9 ; Primary insomnia F51.01 and Hyperlipidemia E78.5 [id number] [place] [address] 05601- 3720 Aug, Post-traumatic stress disorder, unspecified F43.10 ; Major depressive disorder, recurrent, moderate F33.1 and Problems related to release from assisted Z65.2 [id number] [place] [address]- 0273 Aug, Dental examination Z01.20 [facility] [id number] [place] [address] [id number] 13 Aug, 2016 Dental examination Z01.20 [facility] [id number] [place] [address] 43277- 8644 06 Aug, 2016 Post-traumatic stress disorder, unspecified F43.10 ; Major depressive disorder, recurrent, moderate F33.1 and Problems related to release from assisted Z65.2 [facility] [id number] [place] [address] 40215- 9514 05 Aug, 2016 Chronic pain G89.29 and Primary insomnia F51.01 [facility] [id number] [place] [address] 79698- 1929 Jul, [facility] [id number] [place] [address] 90957- 1808 Jul, [facility] [id number] [place] [address] 92819- 1569 Jul, Nausea R11.0 [facility] [id number] [place] [address] 44703- 5215 Jul, Arrhythmia as indication for cardiac pacemaker replacement I49.9 [facility] [id number] [place] [address] 45887- 2365 Jul, Post-traumatic stress disorder, unspecified F43.10 ; Major depressive disorder, recurrent, moderate F33.1 and Problems related to release from assisted Z65.2 [facility] [id number] [place] [address] 87091- 5675 09 Jul, 2016 Anxiety F41.9 [facility] [id number] [place] [address] 91021- 9104 08 Jul, 2016 Chronic pain G89.29 [facility] [id number] [place] [address] 75722- 9704 Jul, Sleep apnea, obstructive G47.33 ; Hyperlipidemia E78.5 ; Chronic pain G89.29 ; Blindness and low vision H54.10 ; Major depressive disorder, recurrent, moderate F33.1 ; Anxiety F41.9 ; Mitral valve prolapse I34.1 ; Arrhythmia as indication for cardiac pacemaker replacement I49.9 ; Primary insomnia F51.01 ; Bilateral headaches R51 and Environmental allergies Z91.09 [facility] [id number] [place] [address] 55886- 0328 Jul, Post-traumatic stress disorder, unspecified F43.10 ; Major depressive disorder, recurrent, moderate F33.1 and Problems related to release from assisted Z65.[address] 76319- 6846 June, Post-traumatic stress disorder, chronic F43.12 ; Anxiety F41.9 ; Problems related to release from assisted Z65.2 ; Sleep apnea, obstructive G47.33 and Primary insomnia F51.01 [place] [place] [address] 71038- 6865 June, [facility] [address] 91388- 7284 June, [facility] [address] 79890- 9450 June, [facility] [address] 80975- 0066 June, Chronic pain G89.29 [facility] [address] 18256- 3966 June, Chronic pain G89.29 [facility] [address] 17999- 6947 June, Lipoma of left lower extremity D17.24 ; Open wound T14.8 and Swelling of left lower extremity M79.89 [facility] [id number] [place] [address] 06839- 9107 June, Post-traumatic stress disorder, unspecified F43.10 ; Major depressive disorder, recurrent, moderate F33.1 and Problems related to release from assisted Z65.2 [facility] [id number] [place] [address] 05459- 6737 May, Lipoma of left lower extremity D17.24 ; Major depressive disorder, recurrent, moderate F33.1 ; Sleep apnea, obstructive G47.33 ; Hyperlipidemia E78.5 ; Obesity E66.9 ; HTN (hypertension) I10 ; Glaucoma H40.9 ; CAD (coronary artery disease) I25.10 ; Chronic tension headaches G44.229 ; Chronic pain G89.29 ; Anxiety F41.9 ; Nausea R11.0 and Primary insomnia F51.01 [facility] [address] 37046- 3931 May, [facility] [id number] [place] [address] 43670- 4732 May, Chronic pain G89.29 [facility] [id number] [place] [address] 61271- 3141 May, [facility] [id number] [place] [address] 91482- 8816 Apr, Post-traumatic stress disorder, unspecified F43.10 ; Major depressive disorder, recurrent, moderate F33.1 and Problems related to release from assisted Z65.2 [facility] [id number] [place] [address] 41156- 2527 Apr, Primary insomnia F51.01 ; Post-traumatic stress disorder, chronic F43.12 and Problems related to release from assisted Z65.2 [facility] [id number] [place] [address] 26889- 5851 Apr, Post-traumatic stress disorder, unspecified F43.10 ; Major depressive disorder, recurrent, moderate F33.1 and Problems related to release from assisted Z65.2 [facility] [id number] [place] [address] 63802- 1270 16 Apr, 2016 [facility] [id number] [place] [address] 24800- 7818 16 Apr, 2016 Sleep apnea, obstructive G47.33 ; Chronic pain G89.29 ; HTN (hypertension) I10 ; Mitral valve prolapse I34.1 ; Shoulder pain, left M25.512 ; Arrhythmia as indication for cardiac pacemaker replacement I49.9 ; Glaucoma H40.9 ; Bilateral headaches R51 ; Environmental allergies Z91.09 ; Primary insomnia F51.01 and Nausea R11.0 [facility] [id number] [place] [address] 51896- 1974 Apr, [facility] [id number] [place] [address] 26490- 3832 Apr, [facility] [address] 05899- 7168 Apr, Post-traumatic stress disorder, unspecified F43.10 ; Major depressive disorder, recurrent, moderate F33.1 and Problems related to release from assisted Z65.2 [facility] [id number] [place] [address] 65784- 7199 Apr, HTN (hypertension) I10 [facility] [id number] [place] [address] 75235- 6537 Apr, HTN (hypertension) I10 [facility] [id number] [place] [address] 57161- 5389 14 Mar, 2016 Chronic pain G89.29 ; Primary insomnia F51.01 and Problems related to release from assisted Z65.2 [facility] [id number] [place] [address] 24533- 5658 07 Mar, 2016 Post-traumatic stress disorder, unspecified F43.10 ; Major depressive disorder, recurrent, moderate F33.1 and Problems related to release from assisted Z65.2 [facility] [id number] [place] [phone]- 5980 Feb, Post-traumatic stress disorder, unspecified F43.10 ; Major depressive disorder, recurrent, moderate F33.1 and Problems related to release from assisted Z65.2 [facility] [id number] [place] [address] 06501- 2608 Feb, Chronic tension headaches G44.[address] 13658- 0243 Feb, Sleep apnea, obstructive G47.33 ; Obesity [...] pacemaker replacement I49.9 and Primary insomnia F51.01 [id number] [place] [address] 60589- 2971 Feb, Post-traumatic stress disorder, unspecified F43.10 and Chronic pain G89.[address] 03465- 5603 Feb, [facility] [address] [id number] Feb, Dental caries K02.9 [address] [id number] [place] [address] 81672- 8447 Feb, [address] [id number] [place] [address] 37531- 4612 Feb, Post-traumatic stress disorder, unspecified F43.10 ; Major depressive disorder, recurrent, moderate F33.1 and Problems related to release from assisted Z65.[address] 91492- 0666 Jan, Sleep apnea, obstructive G47.33 and Chronic pain G89.[address] 66902- 6923 Jan, [address] 79141- 6719 Jan, Dental examination Z01.20 [facility] [id number] [place] [address] 60184- 7802 Jan, [facility] [id number] [place] [address]45 Jan, [facility] [id number] [place] [address] 10654- 3831 Dec, Post-traumatic stress disorder, unspecified F43.10 ; Major depressive disorder, recurrent, moderate F33.1 and Problems related to release from assisted Z65.2 [address] [id number] [place] [address] 57604- 5197 Dec, Encounter for immunization Z23 ; Problems related to release from assisted Z65.2 ; Sleep apnea, obstructive G47.33 and Post-traumatic stress disorder, chronic F43.12 [address] [id number] [place] [address] 81134- 3026 Dec, Sleep apnea, obstructive G47.33 ; Hyperlipidemia E78.5 ; Chronic pain G89.29 ; Glaucoma H40.9 ; HTN (hypertension) I10 ; Post-traumatic stress disorder, unspecified F43.10 ; Anxiety F41.9 ; Chronic tension headaches G44.229 ; Mitral valve prolapse I34.1 and CAD (coronary artery disease) I25.10 [place] [address] [place] [address] 71935- 1259 Dec, Post-traumatic stress disorder, unspecified F43.10 ; Major depressive disorder, recurrent, moderate F33.1 and Problems related to release from assisted Z65.2 [facility] [place] [address] [place] [address] 73237- 9615 Nov, Chronic pain G89.29 [address] [id number] [place] [address] 33400- 5744 Nov, Post-traumatic stress disorder, unspecified F43.10 ; Major depressive disorder, recurrent, moderate F33.1 and Problems related to release from assisted Z65.2 [facility] [id number] [address]- 8958 Oct, [facility] [id number] [place] [address] 11922- 5421 Oct, [facility] [address] [place] [address] 30827- 8153 Oct, Post-traumatic stress disorder, unspecified F43.10 ; Major depressive disorder, recurrent, moderate F33.1 and Problems related to release from assisted Z65.2 [facility] [id number] [place] [address] 62576- 4755 Oct, [facility] [id number] [place] [address] 39637- 3727 07 Oct, 2015 Environmental allergies Z91.09 ; Cough R05 and Open-angle glaucoma of both eyes H40.10X0 [facility] [id number] [place] [address] 15432- 9888 Sep, [facility] [id number] [place] [address] 07157- 3294 Sep, Post-traumatic stress disorder, unspecified F43.10 ; Major depressive disorder, recurrent, moderate F33.1 and Problems related to release from assisted Z65.2 [facility] [id number] [address]- [address] Sep, Chronic pain G89.29 [facility] [id number] [place] [address] 99698- 1582 Sep, Pain in left shoulder M25.512 ; Pain in right shoulder M25.511 and Other chronic pain G89.29 [facility] [id number] [place] [address] 00774- 6004 Sep, [facility] [id number] [place] [address] 96636- 5728 Sep, [facility] [id number] [place] [address] 10992- 7368 Sep, [facility] [id number] [place] [id number] Aug, Dental examination Z01.20 [facility] [id number] [place] [address] 942830- 0454 Aug, Post-traumatic stress disorder, unspecified F43.10 ; Open- angle glaucoma of both eyes H40.10X0 and Problems related to release from assisted Z65.2 [facility] [id number] [place] [address] Aug, [facility] [id number] [place] [address] 54009- 2785 Aug, Sleep apnea, obstructive G47.33 ; Obesity E66.9 ; Hyperlipidemia E78.5 ; Bilateral headaches R51 ; HTN (hypertension) I10 ; Post- traumatic stress disorder, unspecified F43.10 ; Anxiety F41.9 ; Neuropathy G62.9 ; Glaucoma H40.9 and Chronic pain G89.29 [facility] [address] [facility] [id number] [place] [id number] Aug, Encounter for dental examination Z01.20 [facility] [id number] [place] [address] 29374- 0476 Aug, Post-traumatic stress disorder, unspecified F43.10 ; Major depressive disorder, recurrent, moderate F33.1 and Problems related to release from assisted Z65.2 [facility] [id number] [place] [address] Aug, [facility] [id number] [place] [address] Jul, [facility] [id number] [place] [address] 88619- 3033 Jul, Post-traumatic stress disorder, unspecified F43.10 and Major depressive disorder, recurrent, moderate F33.1 [facility] [id number] [place] [address] 32665- 9814 Jul, [facility] [id number] [place] [address] Jul, [facility] [id number] [place] [address] Jul, Chronic pain G89.29 [facility] [id number] [place] [address] June, Post-traumatic stress disorder, unspecified F43.10 and Major depressive disorder, recurrent, moderate F33.1 [facility] [id number] [place] [address] June, [facility] [id number] [place] [address] 33680- 2522 June, Chronic pain G89.29 [facility] [id number] [place] [address] June, Post-traumatic stress disorder, unspecified F43.10 and Major depressive disorder, recurrent, moderate F33.1 [facility] [id number] [place] [address] May, Post-traumatic stress disorder, unspecified F43.10 and Major depressive disorder, recurrent, moderate F33.1 [facility] [id number] [place] [address] May, [facility] [id number] [place] [address] May, [facility] [id number] [place] [address] May, [facility] [id number] [place] [address] 270[address] Apr, [facility] [id number] [place] [address] Apr, Post-traumatic stress disorder, unspecified F43.10 and Sleep apnea, obstructive G47.33 [facility] [id number] [place] [address] 51638- 2285 31 Apr, 2015 [facility] [id number] [place] [address] 82027- 9253 21 Apr, 2015 Shoulder pain, left M25.512 [facility] [id number] [place] [address] 38532- 6969 18 Apr, 2015 Post-traumatic stress disorder, unspecified F43.10 and Major depressive disorder, recurrent, moderate F33.1 [facility] [id number] [place] [address] 52987- 3513 17 Apr, 2015 [facility] [id number] [place] [address] 88315- 8196 11 Apr, 2015 [facility] [id number] [place] [address] 34281- 0752 08 Apr, 2015 [facility] [id number] [place] [address] 54171- 6977 07 Apr, 2015 Left shoulder pain M25.512 [facility] [id number] [place] [address] 09203- 4046 Mar, [facility] [id number] [place] [address] 93042- 8383 Mar, [facility] [id number] [place] [address] 08076- 3919 18 Mar, 2015 [facility] [id number] [place] [address] 03183- 9110 12 Mar, 2015 Sleep apnea, obstructive G47.33 ; Obesity E66.9 ; Chronic pain G89.29 ; Hyperlipidemia E78.5 ; HTN (hypertension) I10 ; Blindness and low vision H54.10 ; Major depressive disorder, recurrent, moderate F33.1 and Anxiety F41.9 [facility] [id number] [place] [address] 61917- 2049 Mar, [facility] [id number] [place] [address] 71346- 9456 Mar, Post-traumatic stress disorder, unspecified F43.10 and Major depressive disorder, recurrent, moderate F33.1 [facility] [id number] [place] [address] 20864- 3224 08 Mar, 2015 [facility] [id number] [place] [address] 560264- 7165 04 Mar, 2015 HTN (hypertension) I10 ; Blindness and low vision H54.10 ; Obesity E66.9 ; Hyperlipidemia E78.5 ; Glaucoma H40.9 ; Chronic pain G89.29 and CAD (coronary artery disease) I25.10 [facility] [id number] [place] [address] Feb, [facility] [id number] [place] [address] 67202- 9625 Feb, Post-traumatic stress disorder, unspecified F43.10 ; Obesity E66.9 ; Sleep apnea, obstructive G47.33 and Open-angle glaucoma of both eyes H40.10X0 [facility] [id number] [place] [address] 09280- 7552 Feb, Post-traumatic stress disorder, unspecified F43.10 and Major depressive disorder, recurrent, moderate F33.1 [facility] [id number] [place] [address] 66303- 5962 Feb, [facility] [id number] [place] [address] 97639- 4313 Feb, [facility] [id number] [place] [address] 94779- 2299 Feb, HTN (hypertension) I10 ; Post-traumatic stress disorder, unspecified F43.10 ; Blindness and low vision H54.10 ; Obesity E66.9 ; Hyperlipidemia E78.5 ; Chronic pain G89.29 ; Glaucoma H40.9 ; Mitral valve prolapse I34.1 and Bilateral headaches R51 [facility] [id number] [place] [address] 50519- 5722 Feb, [facility] [id number] [place] [address] 58915- 8485 Feb, Post-traumatic stress disorder, unspecified F43.10 and Major depressive disorder, recurrent, moderate F33.1 [facility] [id number] [place] [address] Feb, [facility] [id number] [place] [address] 34994- 8648 Feb, [facility] [id number] [place] [address] 08944- 0388 Jan, [facility] [id number] [place] [address] 08170- 0558 Jan, [facility] [id number] [place] [address] 42442- 1995 Jan, Obesity E66.9 ; HTN (hypertension) I10 ; Blindness and low vision H54.10 ; Major depressive disorder, recurrent, moderate F33.1 ; Glaucoma H40.9 ; Hyperlipidemia E78.5 ; Sleep apnea, obstructive G47.33 ; Chronic pain G89.29 ; Anxiety F41.9 ; Chronic tension headaches G44.229 and Cough R05 [facility] [id number] [place] [address] 0181 Jan, [facility] [id number] [place] [address] 97914- 2031 Jan, [facility] [id number] [place] [address] 76729- 2441 Jan, Post-traumatic stress disorder, unspecified F43.10 ; Obesity E66.9 ; Sleep apnea, obstructive G47.33 and Open-angle glaucoma of both eyes H40.10X0 [facility] [id number] [place] [address]- 357[address] Jan, [facility] [id number] [place] [address] 15807- 3619 Jan, Post-traumatic stress disorder, unspecified F43.10 and Major depressive disorder, recurrent, moderate F33.1 [facility] [address] [address]- [address]29 Dec, [facility] [address] [address]- [address]237 Dec, Sleep apnea, obstructive G47.33 ; Obesity E66.9 ; Hyperlipidemia E78.5 ; Glaucoma H40.9 ; Chronic pain G89.29 ; HTN (hypertension ) I10 ; Blindness and low vision H54.10 ; Anxiety F41.9 and CAD (coronary artery disease) I25.10 [facility] [address] [place] [address] 11423- 5511 Nov, [facility] [address] 87637- 9798 Nov, [facility] [address] [place] [address] 87623- 5612 Nov, [facility] [address] 94414- 9114 Nov, [address] [address]- 7724 Nov, [facility] [address] [place] [address] 90859- 7551 Nov, Encounter for immunization Z23 ; Sleep apnea, obstructive G47.33 ; Obesity E66.9 ; Hyperlipidemia E78.5 ; Glaucoma H40.9 ; Chronic pain G89.29 ; Anxiety F41.9 ; Chronic tension headaches G44.229 and HTN (hypertension ) I10 [facility] [address] [place] [address] 64646- 4511 Nov, [facility] [address] [place] [address] 79022- 5845 Nov, [facility] [address] [place] [address] 59479- 3437 Nov, Dizziness R42 [facility] [id number] [place] [address]- 7918 Nov, [facility] [id number] [place] [address] 74376- 2587 Oct, [facility] [id number] [place] [address] 87080- 0073 Oct, [facility] [id number] [place] [address] 15198- 3427 Oct, [facility] [id number] [place] [address] 88620- 0138 Oct, [facility] [id number] [place] [address] 44729- 2830 Oct, Dizziness 780.4 ; Essential hypertension 401.9 ; Obesity 278.00 ; Hyperlipidemia 272.4 ; Chronic pain 338.29 ; Glaucoma 365.9 and Anxiety 300.00 [facility] [id number] [place] [address] 49529- 3277 Oct, Essential hypertension 401.9 ; Hyperlipidemia 272.4 ; Glaucoma 365.9 ; Obesity 278.00 ; Chronic pain 338.29 and Allergy to insects V15.06 [facility] [id number] [place] [address]- 3944 Sep, [facility] [id number] [place] [address] 75160- 8408 Sep, [facility] [id number] [place] [address] 06137- 8314 Sep, [facility] [id number] [place] [address] 78008- 0011 Sep, [facility] [id number] [place] [address] 68184- 0079 Aug, Essential hypertension 401.9 ; Obesity 278.00 ; Hyperlipidemia 272.4 ; Glaucoma 365.9 ; Lipoma 214.9 ; Mitral valve prolapse 424.0 ; Angina at rest 413.9 ; Lymphedema 457.1 and Chronic pain 338.29 IMMUNIZATIONS No Known Immunizations SOCIAL HISTORY Never Assessed REASON FOR VISIT Hydrocodone and Xanax- 03/01 PLAN OF CARE VITAL SIGNS MEDICATIONS Medication Instructions Dosage Frequency Start Date End Date Duration Status Hydrocodone-Acetaminophen 7.5-325 MG Orally 4 times a day 1 tablet 6h Feb, 28 days Active Xanax 1 MG Orally [...]
--- OUTSIDE RECORDS SUMMARY | 2018-02-04 15:27 | XMS REPORT ---
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 Phone CJ EDGE Unavailable PROBLEMS Type Condition ICD9-CM Code PKN36-PH Code Onset Dates Condition Status SNOMED Code Problem Environmental allergies Z91.09 Active 924324511 Problem Primary insomnia F51.01 Active 1383136 Problem Arrhythmia as indication for cardiac pacemaker replacement I49.9 Active 55862262 Problem Chronic pain syndrome G89.4 Active 687602998 Problem Sleep apnea, obstructive G47.33 Active 33581437 Problem Migraine without aura and without status migrainosus, not intractable G43.009 Active 763423206 Problem Hyperlipidemia E78.5 Active 89901960 Problem Myocarditis, unspecified chronicity, 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 Active 34033172 Problem Other male erectile dysfunction N52.8 Active 164177090 Problem Morbid (severe) obesity due to excess calories E66.01 Active 724067254 Problem 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 Active 180711625 Problem Body mass index (BMI) of 40.0-44.9 in adult Z68.41 Active 468763291 Problem Blindness and low vision H54.10 Active 318794273 Problem Chronic tension headaches G44.229 Active 279658130 Problem Chronic pain G89.29 Active 54995733 Problem HTN (hypertension) I10 Active 05773231 Problem Open-angle glaucoma of both eyes H40.10X0 Active 85218236 Problem Mitral valve prolapse I34.1 Active 253931833 Problem Anxiety F41.9 Active 26332898 Problem CAD (coronary artery disease) I25.10 Active 82249361 Problem Major depressive disorder, recurrent, moderate F33.1 Active 12417040 Problem Post-traumatic stress disorder, chronic F43.12 Active 351082870 ALLERGIES No Information ENCOUNTERS Encounter Location Date Diagnosis [facility] [address] [facility] [id number] [place] [address] 13094- 0755 Jul, [facility] [id number] [place] [address] 84012- 5463 Jul, [facility] [address] [place] [id number] [place] [address] 90317- 0285 June, [facility] [address] [place] [id number] [place] [address] 35726- 6155 May, [facility] [address] [place] [id number] [place] [address] 56732- 5729 May, Left leg pain M79.605 [place] [address] [place] [id number] [place] [address] 29876- 4637 May, Post-traumatic stress disorder, unspecified F43.10 ; Major depressive disorder, recurrent, moderate F33.1 and Problems related to release from mcc Z65.2 [place] [address] [place] [id number] [place] [address] 65180- 4859 May, Chronic pain G89.29 ; Anxiety F41.9 and Chest pain, unspecified type R07.9 [place] [address] [place] [id number] [place] [address] 56787- 4910 Apr, [facility] [address] [place] [id number] [place] [address] 03398- 6993 Apr, Left leg pain M79.605 [facility] [id number] [place] [address] 01050- 6308 Apr, Post-traumatic stress disorder, unspecified F43.10 ; Problems related to release from mcc Z65.2 ; Anxiety F41.9 and BMI 40.0-44.9 , adult Z68.41 [facility] [address] [place] [id number] [place] [address] 42320- 6365 Apr, [facility] [id number] [place] [address] 79206- 5839 Apr, Left leg pain M79.605 [facility] [address] [place] [id number] [place] [address] 67167- 6870 13 Apr, 2017 Post-traumatic stress disorder, unspecified F43.10 ; Major depressive disorder, recurrent, moderate F33.1 and Problems related to release from mcc Z65.2 [place] [address] 78824- 5509 12 Apr, 2017 [place] [address] 75357- 7417 12 Apr, 2017 Chronic pain G89.29 ; 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9, adult Z68.41 [place] [address] 84267- 0978 19 Mar, 2017 Left leg pain M79.605 [place] [address] 72454- 4603 06 Mar, 2017 Post-traumatic stress disorder, unspecified F43.10 ; Major depressive disorder, recurrent, moderate F33.1 and Problems related to release from mcc Z65.2 [place] [address] [place] [id number] [place] [address] 55839- 7413 Feb, Left leg pain M79.605 [facility] [address] [place] [id number] [place] [address] 04686- 4362 Feb, [place] [address] [place] [id number] [place] [address] 94701- 2408 Feb, BMI 40.0-44.9, adult Z68.41 ; Chronic pain syndrome G89.4 ; Migraine without aura and without status migrainosus, not intractable G43.009 ; Mitral valve prolapse I34.1 and 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 [place] [address] [place] [id number] [place] [address] 27142- 9641 Feb, Post-traumatic stress disorder, chronic F43.12 ; Anxiety F41.9 ; Problems related to release from mcc Z65.2 and BMI 40.0-44.9, adult Z68.41 [place] [address] [place] [id number] [place] [address] 74840- 1344 Feb, Post-traumatic stress disorder, unspecified F43.10 ; Major depressive disorder, recurrent, moderate F33.1 and Problems related to release from mcc Z65.2 [place] [id number] [place] [address] 83481- 6821 Feb, Left leg pain M79.605 [place] [address] [place] [id number] [place] [address] 17850- 2253 Jan, Post-traumatic stress disorder, unspecified F43.10 ; Major depressive disorder, recurrent, moderate F33.1 and Problems related to release from mcc Z65.2 [place] [address] [place] [id number] [place] [address] 77661- 4008 Jan, [place] [address] [place] [id number] [place] [address] 52932- 2999 Jan, [place] [address] [place] [id number] [place] [address] 49659- 7748 Jan, Anxiety F41.9 [place] [id number] [place] [address] 99462- 6229 Jan, Left leg pain M79.605 [place] [id number] [place] [address] 80475- 2311 Dec, Left leg pain M79.605 [place] [address] [place] [id number] [place] [address] 68463- 7575 Dec, [place] [address] [place] [id number] [place] [address] 37892- 0381 Dec, Post-traumatic stress disorder, unspecified F43.10 ; Major depressive disorder, recurrent, moderate F33.1 and Problems related to release from mcc Z65.2 [place] [address] [place] [id number] [place] [address] 74794- 3603 31 Nov, 2016 Chronic pain G89.29 and Anxiety F41.9 [place] [address] [place] [id number] [place] [address] 46535- 0428 Nov, Chronic pain G89.29 and Anxiety F41.9 [place] [address] [place] [id number] [place] [address] 12621- 8759 16 Nov, 2016 Post-traumatic stress disorder, unspecified F43.10 ; Major depressive disorder, recurrent, moderate F33.1 and Problems related to release from mcc Z65.2 [place] [address] [place] [address] 64001- 4732 09 Nov, 2016 Other abnormal findings in specimens from other organs, systems and tissues R89.8 ; Other male erectile dysfunction N52.8 ; Body mass index (BMI) of 40.0-44.9 in adult Z68.41 and Morbid (severe) obesity due to excess calories E66.01 [place] [address] [place] [address] 46990- 7027 02 Nov, 2016 Post-traumatic stress disorder, unspecified F43.10 ; Major depressive disorder, recurrent, moderate F33.1 and Problems related to release from mcc Z65.2 [facility] [address] [place] [id number] [id number] 29 Oct, 2016 Dental examination Z01.20 [place] [id number] [place] [address] 97478- 9215 28 Oct, 2016 [place] [id number] [place] [address] 74568- 8671 28 Oct, 2016 Encounter for immunization Z23 [place] [address] [place] [id number] [place] [address] 02278- 8229 Oct, Chronic pain G89.29 ; Anxiety F41.9 ; Arrhythmia as indication for cardiac pacemaker replacement I49.9 and Glaucoma H40.9 [place] [id number] [place] [address] 54421- 6358 Oct, Anxiety F41.9 ; Post-traumatic stress disorder, chronic F43.12 and Problems related to release from mcc Z65.2 [place] [id number] [place] [address] 77165- 3649 07 Oct, 2016 Post-traumatic stress disorder, unspecified F43.10 ; Major depressive disorder, recurrent, moderate F33.1 and Problems related to release from mcc Z65.2 [place] [id number] [place] [address] 00609- 9933 Sep, Chronic pain G89.29 and Anxiety F41.9 [place] [id number] [place] [address] 25668- 0767 Sep, Post-traumatic stress disorder, unspecified F43.10 ; Major depressive disorder, recurrent, moderate F33.1 and Problems related to release from mcc Z65.2 [place] [id number] [place] [address] 60395- 4310 Sep, Post-traumatic stress disorder, unspecified F43.10 ; Major depressive disorder, recurrent, moderate F33.1 and Problems related to release from mcc Z65.2 [place] [id number] [place] [address] 74300- 5296 Sep, Chronic pain G89.29 [facility] [address] [address]- 5537 Aug, Dental caries, unspecified K02.9 [facility] [address] [address]- 3554 Aug, Sleep apnea, obstructive G47.33 ; Obesity E66.9 ; Chronic pain G89.29 ; HTN (hypertension) I10 ; Major depressive disorder, recurrent, moderate F33.1 ; Anxiety F41.9 ; Chronic tension headaches G44.229 ; Mitral valve prolapse I34.1 ; Arrhythmia as indication for cardiac pacemaker replacement I49.9 ; Dental caries, unspecified K02.9 ; Primary insomnia F51.01 and Hyperlipidemia E78.5 [facility] [id number] [place] [address] 21319- 2734 Aug, Post-traumatic stress disorder, unspecified F43.10 ; Major depressive disorder, recurrent, moderate F33.1 and Problems related to release from mcc Z65.2 [facility] [id number] [place] [address] 01232- 8715 Aug, Dental examination Z01.20 [facility] [address] [place] [address] [id number] Aug, Dental examination Z01.20 [facility] [address] [address]- 3316 Aug, Post-traumatic stress disorder, unspecified F43.10 ; Major depressive disorder, recurrent, moderate F33.1 and Problems related to release from mcc Z65.2 [facility] [address] [address]- 8212 Aug, Chronic pain G89.29 and Primary insomnia F51.01 [facility] [id number] [address]- 4807 Jul, [facility] [address] [place] [id number] [place] [address] 75196- 8947 Jul, [place] [id number] [place] [address] 63905- 3180 30 Jul, 2016 Nausea R11.0 [place] [id number] [place] [address] 59043- 4620 29 Jul, 2016 Arrhythmia as indication for cardiac pacemaker replacement I49.9 [place] [id number] [place] [address] 10754- 8517 13 Jul, 2016 Post-traumatic stress disorder, unspecified F43.10 ; Major depressive disorder, recurrent, moderate F33.1 and Problems related to release from mcc Z65.2 [place] [id number] [place] [address] 20813- 8505 09 Jul, 2016 Anxiety F41.9 [place] [id number] [place] [address] 11266- 7423 08 Jul, 2016 Chronic pain G89.29 [place] [id number] [place] [address] 00181- 0284 02 Jul, 2016 Sleep apnea, obstructive G47.33 ; Hyperlipidemia E78.5 ; Chronic pain G89.29 ; Blindness and low vision H54.10 ; Major depressive disorder, recurrent, moderate F33.1 ; Anxiety F41.9 ; Mitral valve prolapse I34.1 ; Arrhythmia as indication for cardiac pacemaker replacement I49.9 ; Primary insomnia F51.01 ; Bilateral headaches R51 and Environmental allergies Z91.[address] [place] [address] 80563- 4867 Jul, Post-traumatic stress disorder, unspecified F43.10 ; Major depressive disorder, recurrent, moderate F33.1 and Problems related to release from mcc Z65.2 [place] [id number] [place] [address] 64223- 6303 June, Post-traumatic stress disorder, chronic F43.12 ; Anxiety F41.9 ; Problems related to release from mcc Z65.2 ; Sleep apnea, obstructive G47.33 and Primary insomnia F51.01 [place] [id number] [place] [address] 76256- 4774 June, [place] [address] [address]- 8608 June, [place] [address] [place] [id number] [place] [address] 24982- 2091 June, [place] [address] [place] [id number] [place] [address] 79052- 6482 June, Chronic pain G89.29 [place] [address] [place] [id number] [place] [address] 87220- 0095 June, Chronic pain G89.29 [place] [id number] [place] [address] 21751- 3530 June, Lipoma of left lower extremity D17.24 ; Open wound T14.8 and Swelling of left lower extremity M79.89 [place] [id number] [place] [address] 38103- 6771 June, Post-traumatic stress disorder, unspecified F43.10 ; Major depressive disorder, recurrent, moderate F33.1 and Problems related to release from mcc Z65.2 [place] [id number] [place] [address] 96568- 8894 May, Lipoma of left lower extremity D17.24 ; Major depressive disorder, recurrent, moderate F33.1 ; Sleep apnea, obstructive G47.33 ; Hyperlipidemia E78.5 ; Obesity E66.9 ; HTN (hypertension) I10 ; Glaucoma H40.9 ; CAD (coronary artery disease) I25.10 ; Chronic tension headaches G44.229 ; Chronic pain G89.29 ; Anxiety F41.9 ; Nausea R11.0 and Primary insomnia F51.01 [place] [id number] [place] [address] 49508- 1060 May, [place] [id number] [place] [address] 39930- 7928 May, Chronic pain G89.29 [place] [id number] [place] [address] 51473- 8954 May, [place] [address] [address]- 4349 Apr, Post-traumatic stress disorder, unspecified F43.10 ; Major depressive disorder, recurrent, moderate F33.1 and Problems related to release from mcc Z65.2 [place] [id number] [place] [address] 85243- 1276 Apr, Primary insomnia F51.01 ; Post-traumatic stress disorder, chronic F43.12 and Problems related to release from mcc Z65.2 [place] [address] [place] [id number] [place] [address] 54389- 8539 Apr, Post-traumatic stress disorder, unspecified F43.10 ; Major depressive disorder, recurrent, moderate F33.1 and Problems related to release from mcc Z65.2 [place] [address] [place] [id number] [place] [address] 09378- 8374 Apr, [place] [id number] [place] [address] 56036- 0227 Apr, Sleep apnea, obstructive G47.33 ; Chronic pain G89.29 ; HTN (hypertension) I10 ; Mitral valve prolapse I34.1 ; Shoulder pain, left M25.512 ; Arrhythmia as indication for cardiac pacemaker replacement I49.9 ; Glaucoma H40.9 ; Bilateral headaches R51 ; Environmental allergies Z91.09 ; Primary insomnia F51.01 and Nausea R11.0 [place] [address] [address]- 2259 Apr, [place] [id number] [place] [address] 28654- 7594 Apr, [place] [address] [place] [id number] [place] [address] 66973- 1952 Apr, Post-traumatic stress disorder, unspecified F43.10 ; Major depressive disorder, recurrent, moderate F33.1 and Problems related to release from mcc Z65.2 [place] [address] [place] [id number] [address]- 1805 Apr, HTN (hypertension) I10 [place] [address] [place] [id number] [place] [address] 71617- 8006 Apr, HTN (hypertension) I10 [place] [address] [place] [id number] [place] [address] 95086- 9397 14 Mar, 2016 Chronic pain G89.29 ; Primary insomnia F51.01 and Problems related to release from mcc Z65.2 [place] [address] [place] [id number] [place] [address] 18476- 6583 07 Mar, 2016 Post-traumatic stress disorder, unspecified F43.10 ; Major depressive disorder, recurrent, moderate F33.1 and Problems related to release from mcc Z65.2 [place] [address] [place] [id number] [place] [address] 51082- 9865 Feb, Post-traumatic stress disorder, unspecified F43.10 ; Major depressive disorder, recurrent, moderate F33.1 and Problems related to release from mcc Z65.2 [place] [address] [place] [id number] [place] [address] 28240- 1811 Feb, Chronic tension headaches G44.229 [place] [address] [place] [id number] [place] [address] 50543- 1979 Feb, Sleep apnea, obstructive G47.33 ; Obesity [...] I49.9 and Primary insomnia F51.01 [place] [address] [address]- 7528 Feb, Post-traumatic stress disorder, unspecified F43.10 and Chronic pain G89.29 [place] [address] [address]- 5486 13 Feb, 2016 [facility] [address] [place] [address] [id number] Feb, Dental caries K02.9 [facility] [id number] [place] [address] 33351- 4143 Feb, [place] [address] [place] [id number] [place] [address] 06268- 2243 Feb, Post-traumatic stress disorder, unspecified F43.10 ; Major depressive disorder, recurrent, moderate F33.1 and Problems related to release from mcc Z65.2 [place] [address] [place] [id number] [place] [address] 09864- 6050 Jan, Sleep apnea, obstructive G47.33 and Chronic pain G89.29 [place] [address] [place] [id number] [place] [address] 33899- 2615 Jan, [place] [address] [place] [id number] [place] [address] 62283- 8732 14 Jan, 2016 Dental examination Z01.20 [place] [address] [place] [id number] [place] [address] 98857- 4892 Jan, [place] [id number] [place] [address] 30450- 6000 Jan, [place] [id number] [place] [address] 53779- 0812 Dec, Post-traumatic stress disorder, unspecified F43.10 ; Major depressive disorder, recurrent, moderate F33.1 and Problems related to release from mcc Z65.2 [place] [address] [place] [id number] [place] [address] 45916- 7335 29 Dec, 2015 Encounter for immunization Z23 ; Problems related to release from mcc Z65.2 ; Sleep apnea, obstructive G47.33 and Post-traumatic stress disorder, chronic F43.12 [place] [address] [place] [id number] [place] [address] 47318- 8681 Dec, Sleep apnea, obstructive G47.33 ; Hyperlipidemia E78.5 ; Chronic pain G89.29 ; Glaucoma H40.9 ; HTN (hypertension) I10 ; Post-traumatic stress disorder, unspecified F43.10 ; Anxiety F41.9 ; Chronic tension headaches G44.229 ; Mitral valve prolapse I34.1 and CAD (coronary artery disease) I25.10 [place] [address] 332915- 0388 Dec, Post-traumatic stress disorder, unspecified F43.10 ; Major depressive disorder, recurrent, moderate F33.1 and Problems related to release from mcc Z65.2 [place] [address] [place] 561661- 0478 Nov, Chronic pain G89.29 [place] [address] [place] 37342107- 0285 Nov, Post-traumatic stress disorder, unspecified F43.10 ; Major depressive disorder, recurrent, moderate F33.1 and Problems related to release from mcc Z65.2 [place] [address] 95759- 5016 Oct, [place] [address] [place] 37342514- 0635 23 Oct, 2015 [place] [address] [place] [id number] [place] [address] 62092- 5794 16 Oct, 2015 Post-traumatic stress disorder, unspecified F43.10 ; Major depressive disorder, recurrent, moderate F33.1 and Problems related to release from mcc Z65.2 [place] [address] 287049- 1062 08 Oct, 2015 [place] 717256- 4563 07 Oct, 2015 Environmental allergies Z91.09 ; Cough R05 and Open-angle glaucoma of both eyes H40.10X0 [address] 11973- 0386 Sep, [place] [address] [place] [id number] [place] [address] 59963- 3563 Sep, Post-traumatic stress disorder, unspecified F43.10 ; Major depressive disorder, recurrent, moderate F33.1 and Problems related to release from mcc Z65.2 [place] [address] [place] [id number] [place] [address] 68364- 6400 Sep, Chronic pain G89.29 [place] [address] [place] [id number] [place] [address] 80126- 1811 Sep, Pain in left shoulder M25.512 ; Pain in right shoulder M25.511 and Other chronic pain G89.29 [place] [address] [place] [id number] [place] [address] 98761- 9801 Sep, [place] [address] [place] [id number] [place] [address] 71753- 1084 Sep, [place] [address] [place] [id number] [place] [address] 02144- 9614 Sep, [facility] [address] [place] [id number] [place] [address] [id number] Aug, Dental examination Z01.20 [place] [address] [place] [id number] [place] [address] 67058- 4967 Aug, Post-traumatic stress disorder, unspecified F43.10 ; Open- angle glaucoma of both eyes H40.10X0 and Problems related to release from mcc Z65.2 [place] [address] [place] [id number] [place] [address] 91461- 6321 Aug, [place] [address] [place] [id number] [place] [address] 46989- 5023 Aug, Sleep apnea, obstructive G47.33 ; Obesity E66.9 ; Hyperlipidemia E78.5 ; Bilateral headaches R51 ; HTN (hypertension) I10 ; Post- traumatic stress disorder, unspecified F43.10 ; Anxiety F41.9 ; Neuropathy G62.9 ; Glaucoma H40.9 and Chronic pain G89.29 [facility] [address] [place] [id number] [id number] Aug, Encounter for dental examination Z01.20 [facility] [id number] [place] [address] 73963- 6658 Aug, Post-traumatic stress disorder, unspecified F43.10 ; Major depressive disorder, recurrent, moderate F33.1 and Problems related to release from mcc Z65.2 [facility] [address] [address]- 7865 Aug, [facility] [id number] [place] [address] 77055- 9736 Jul, [facility] [address] [place] [id number] [place] [address] 77524- 4196 Jul, Post-traumatic stress disorder, unspecified F43.10 and Major depressive disorder, recurrent, moderate F33.1 [facility] [address] [address]- 9176 Jul, [facility] [id number] [place] [address] 36180- 9501 Jul, [facility] [id number] [place] [address] 39824- 3223 Jul, Chronic pain G89.29 [facility] [id number] [address] June, Post-traumatic stress disorder, unspecified F43.10 and Major depressive disorder, recurrent, moderate F33.1 [facility] [id number] [address] June, [facility] [id number] [place] [address] 48120- 7339 June, Chronic pain G89.29 [facility] [id number] [address] June, Post-traumatic stress disorder, unspecified F43.10 and Major depressive disorder, recurrent, moderate F33.1 [facility] [address] [place] [id number] [place] [address] 72967- 7174 29 May, 2015 Post-traumatic stress disorder, unspecified F43.10 and Major depressive disorder, recurrent, moderate F33.1 [facility] [id number] [place] [address] 58263- 5706 May, [facility] [id number] [place] [address] 85089- 0064 May, [facility] [id number] [place] [address] 31250- 3269 May, [facility] [id number] [place] [address] 53014- 6701 Apr, [facility] [id number] [place] [address] 90674- 7205 Apr, Post-traumatic stress disorder, unspecified F43.10 and Sleep apnea, obstructive G47.33 [facility] [id number] [place] [address] 98230- 7155 Apr, [facility] [id number] [place] [address] 31776- 3540 Apr, Shoulder pain, left M25.512 [facility] [id number] [place] [address] 92167- 4200 18 Apr, 2015 Post-traumatic stress disorder, unspecified F43.10 and Major depressive disorder, recurrent, moderate F33.1 [facility] [address] [address]81 17 Apr, 2015 [facility] [id number] [place] [address] 75506- 4516 11 Apr, 2015 [facility] [id number] [place] [address] 91976- 6783 08 Apr, 2015 [facility] [id number] [place] [address] 62743- 3678 Apr, Left shoulder pain M25.512 [place] [id number] [place] [address] 68157- 9732 Mar, [place] [id number] [place] [address] 824773- 8120 Mar, [place] [id number] [place] [address] 50216- 1712 Mar, [place] [id number] [place] [address] 27533- 1617 Mar, Sleep apnea, obstructive G47.33 ; Obesity E66.9 ; Chronic pain G89.29 ; Hyperlipidemia E78.5 ; HTN (hypertension) I10 ; Blindness and low vision H54.10 ; Major depressive disorder, recurrent, moderate F33.1 and Anxiety F41.9 [place] [id number] [place] [address] 54022- 6435 Mar, [place] [id number] [place] [address] 75211- 5205 Mar, Post-traumatic stress disorder, unspecified F43.10 and Major depressive disorder, recurrent, moderate F33.1 [place] [id number] [place] [address] 46392- 4629 Mar, [place] [id number] [place] [address] 65102- 7558 Mar, HTN (hypertension) I10 ; Blindness and low vision H54.10 ; Obesity E66.9 ; Hyperlipidemia E78.5 ; Glaucoma H40.9 ; Chronic pain G89.29 and CAD (coronary artery disease) I25.10 [place] [id number] [place] [address] 27377- 6352 Feb, [place] [id number] [place] [address] 70072- 6282 Feb, Post-traumatic stress disorder, unspecified F43.10 ; Obesity E66.9 ; Sleep apnea, obstructive G47.33 and Open-angle glaucoma of both eyes H40.10X0 [place] [id number] [place] [address] 14051- 0038 Feb, Post-traumatic stress disorder, unspecified F43.10 and Major depressive disorder, recurrent, moderate F33.1 [place] [id number] [place] [address] 77086- 1738 Feb, [place] [id number] [place] [address] 00416- 1995 Feb, [place] [id number] [place] [address] 79403- 6683 Feb, HTN (hypertension) I10 ; Post-traumatic stress disorder, unspecified F43.10 ; Blindness and low vision H54.10 ; Obesity E66.9 ; Hyperlipidemia E78.5 ; Chronic pain G89.29 ; Glaucoma H40.9 ; Mitral valve prolapse I34.1 and Bilateral headaches R51 [place] [id number] [place] [address] 79384- 5253 Feb, [place] [id number] [place] [address] 10671- 0151 Feb, Post-traumatic stress disorder, unspecified F43.10 and Major depressive disorder, recurrent, moderate F33.1 [place] [id number] [place] [address] 10740- 7885 Feb, [place] [id number] [place] [address] 19535- 7975 Feb, [place] [id number] [place] [address] 13804- 7560 Jan, [place] [id number] [place] [address] 65581- 5919 Jan, [place] [id number] [place] [address] 51585- 6685 Jan, Obesity E66.9 ; HTN (hypertension) I10 ; Blindness and low vision H54.10 ; Major depressive disorder, recurrent, moderate F33.1 ; Glaucoma H40.9 ; Hyperlipidemia E78.5 ; Sleep apnea, obstructive G47.33 ; Chronic pain G89.29 ; Anxiety F41.9 ; Chronic tension headaches G44.229 and Cough R05 [place] [id number] [place] [address] 83550- 9376 Jan, [place] [address]254- 1864 Jan, [address] [address] 1823 Jan, Post-traumatic stress disorder, unspecified F43.10 ; Obesity E66.9 ; Sleep apnea, obstructive G47.33 and Open-angle glaucoma of both eyes H40.10X0 [place] [id number] [place] [address] 23722- 1218 Jan, [place] [id number]- 7617 Jan, Post-traumatic stress disorder, unspecified F43.10 and Major depressive disorder, recurrent, moderate F33.1 [place] [id number] [place] [address] 85198- 8488 Dec, [place] [id number] [place] [address] 40523- 4247 Dec, Sleep apnea, obstructive G47.33 ; Obesity E66.9 ; Hyperlipidemia E78.5 ; Glaucoma H40.9 ; Chronic pain G89.29 ; HTN (hypertension ) I10 ; Blindness and low vision H54.10 ; Anxiety F41.9 and CAD (coronary artery disease) I25.10 [place] [id number]- 5605 Nov, [place] [id number] [place] [address] 91404- 2171 Nov, [place] [id number]- 2546 Nov, [facility] [id number] [place] [address] 46600- 6387 Nov, [facility] [id number] [place] [address] 33923- 9449 Nov, [facility] [address] 37078- 1797 Nov, Encounter for immunization Z23 ; Sleep apnea, obstructive G47.33 ; Obesity E66.9 ; Hyperlipidemia E78.5 ; Glaucoma H40.9 ; Chronic pain G89.29 ; Anxiety F41.9 ; Chronic tension headaches G44.229 and HTN (hypertension ) I10 [facility] [id number] [place] [address] 73522- 5986 Nov, [facility] [id number] [place] [address] 47022- 2083 Nov, [facility] [address] 6[address]40- 2993 Nov, Dizziness R42 [facility] [address] 65708- 6030 Nov, [facility] [id number] [place] [address] 43871- 4823 29 Oct, 2014 [facility] [id number] [place] [address] 37548- 6056 28 Oct, 2014 [facility] [id number] [place] [address] 09796- 4056 Oct, [facility] [id number] [place] [address] 81295- 7958 Oct, [facility] [id number] [place] [address] 84625- 4571 17 Oct, 2014 Dizziness 780.4 ; Essential hypertension 401.9 ; Obesity 278.00 ; Hyperlipidemia 272.4 ; Chronic pain 338.29 ; Glaucoma 365.9 and Anxiety 300.00 [facility] [id number] [id number]306 Oct, Essential hypertension 401.9 ; Hyperlipidemia 272.4 ; Glaucoma 365.9 ; Obesity 278.00 ; Chronic pain 338.29 and Allergy to insects V15.06 [facility] [address] [address]- 6117 Sep, [facility] [id number] [place] [address] 14941- 5738 Sep, [facility] [id number] [place] [address] 82577- 4095 Sep, [facility] [id number] [place] [address] 34854- 4494 Sep, [facility] [address] [address]- 8361 Aug, Essential hypertension 401.9 ; Obesity 278.00 [...] patient &/family, 45 minutes, established patient Oct 02, 2016 INSTRUCTIONS MEDICATIONS ADMINISTERED No Known Medications [...]
--- OUTSIDE RECORDS SUMMARY | 2018-02-04 15:27 | XMS REPORT ---
Author Author CJ EDGE [facility] Address [address] [place] [address] Care Team Providers Care Makeup Artist Name Role Phone CJ EDGE Unavailable PROBLEMS Type Condition ICD9-CM Code AKD78-SI Code Onset Dates Condition Status SNOMED Code Problem CAD (coronary artery disease) I25.10 Active 14038026 Problem Encounter for dental examination Z01.20 Active 748207271 Problem Shoulder pain, left M25.512 Active 99758085 Problem Post-traumatic stress disorder, unspecified F43.10 Active 00924765 Problem Hyperlipidemia E78.5 Active 88743307 Problem Primary insomnia F51.01 Active 4882402 Problem Obesity E66.9 Active 254240771 Problem Chronic pain G89.29 Active 84444497 Problem Post-traumatic stress disorder, chronic F43.12 Active 939709590 Problem Bilateral headaches R51 Active 712858910 Problem Arrhythmia as indication for cardiac pacemaker replacement I49.9 Active 60236995 Problem Environmental allergies Z91.09 Active 410471001 Problem Blindness and low vision H54.10 Active 837601943 Problem HTN (hypertension) I10 Active 76877933 Problem Glaucoma H40.9 Active 78807721 Problem Problems related to release from [facility] Z65.2 Active 99182325 Problem Anxiety F41.9 Active 31070311 Problem Major depressive disorder, recurrent, moderate F33.1 Active 41978229 Problem Chronic tension headaches G44.229 Active 429111553 Problem Open-angle glaucoma of both eyes H40.10X0 Active 76165865 Problem Sleep apnea, obstructive G47.33 Active 32167834 Problem Cough R05 Active 56299821 Problem Mitral valve prolapse I34.1 Active 041449366 ALLERGIES Unknown Allergies SOCIAL HISTORY No smoking Hx information available PLAN OF CARE Activity Details Follow Up 2 Weeks Reason: VITAL SIGNS MEDICATIONS Unknown Medications RESULTS No Results PROCEDURES Procedure Date Ordered Related Diagnosis Body Site Psychotherapy, patient &/family, 45 minutes, established patient Mar 17, 2016 IMMUNIZATIONS No Known Immunizations
--- OUTSIDE RECORDS SUMMARY | 2018-02-04 15:28 | XMS REPORT ---
Author Author ADAM CANALES [facility] Address Unknown Care Team Providers Care Tie Maker Name Role Phone ADAM CANALES Unavailable PROBLEMS Type Condition ICD9-CM Code UHI01-FA Code Onset Dates Condition Status SNOMED Code Problem Environmental allergies Z91.09 Active 229814759 Problem Primary insomnia F51.01 Active 2662293 Problem Arrhythmia as indication for cardiac pacemaker replacement I49.9 Active 84988339 Problem Chronic pain syndrome G89.4 Active 731156632 Problem Sleep apnea, obstructive G47.33 Active 35662888 Problem Migraine without aura and without status migrainosus, not intractable G43.009 Active 610971382 Problem Hyperlipidemia E78.5 Active 30744703 Problem Myocarditis, unspecified chronicity, 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 Active 06894457 Problem Other male erectile dysfunction N52.8 Active 173186696 Problem Morbid (severe) obesity due to excess calories E66.01 Active 634678852 Problem 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 Active 621202338 Problem Body mass index (BMI) of 40.0-44.9 in adult Z68.41 Active 055831505 Problem Blindness and low vision H54.10 Active 970348617 Problem Chronic tension headaches G44.229 Active 113753209 Problem Chronic pain G89.29 Active 68600608 Problem HTN (hypertension) I10 Active 12266045 Problem Open-angle glaucoma of both eyes H40.10X0 Active 49622261 Problem Mitral valve prolapse I34.1 Active 592855741 Problem Anxiety F41.9 Active 42147406 Problem CAD (coronary artery disease) I25.10 Active 53969476 Problem Major depressive disorder, recurrent, moderate F33.1 Active 95398406 Problem Post-traumatic stress disorder, chronic F43.12 Active 353262408 ALLERGIES Substance Reaction Event Type Date Status Xalatan upper lid irritation Drug Allergy Oct, Active Penicillin G Potassium rash Drug Allergy Oct, Active Aspirin nausea and vomiting Drug Allergy Oct, Active bandaides blisters Non Drug Allergy Oct, Active Wasp venom anaphylaxis Non Drug Allergy Oct, Active ENCOUNTERS Encounter Location Date Diagnosis [facility] [id number] [place] [address] 64262- 5432 Jul, [facility] [id number] [place] [address] 90691- 2748 Jul, [facility] [id number] [place] [address] 11452- 3491 June, [facility] [id number] [place] [address] 52335- 4894 June, [facility] [address] 26313- 7185 June, Left leg pain M79.605 [facility] [id number] [place] [address] 71289- 0052 May, [facility] [id number] [place] [address] 66743- 3759 May, [facility] [id number] [place] [address] 61422- 1325 May, [facility] [id number] [place] [address] 99066- 1713 May, Left leg pain M79.605 [facility] [id number] [place] [address] 76058- 5849 May, Post-traumatic stress disorder, unspecified F43.10 ; Major depressive disorder, recurrent, moderate F33.1 and Problems related to release from residential Z65.2 [facility] [id number] [place] [address] 42486- 8683 May, Chronic pain G89.29 ; Anxiety F41.9 and Chest pain, unspecified type R07.9 [facility] [id number] [place] [address] 66208- 4051 Apr, [facility] [id number] [place] [address] 48944- 3007 29 Apr, 2017 Left leg pain M79.605 [facility] [address] 78822- 4314 27 Apr, 2017 Post-traumatic stress disorder, unspecified F43.10 ; Problems related to release from residential Z65.2 ; Anxiety F41.9 and BMI 40.0-44.9 , adult Z68.41 [facility] [address] 54534- 6924 Apr, [facility] [address] 04671- 7080 Apr, Left leg pain M79.605 [place] [address] 48667- 3829 13 Apr, 2017 Post-traumatic stress disorder, unspecified F43.10 ; Major depressive disorder, recurrent, moderate F33.1 and Problems related to release from residential Z65.2 [place] [address] 52324- 9169 Apr, [facility] [address] 99144- 8627 Apr, Chronic pain G89.29 ; 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 ; Morbid (severe) obesity due to excess calories E66.01 ; Anxiety F41.9 and BMI 40.0-44.9, adult Z68.41 [facility] [id number] [place] [address] 70539 -5229 Apr, Sore throat J02.9 and BMI 40.0-44.9, adult Z68.41 [facility] [address] 07501- 9654 02 Apr, 2017 Left leg pain M79.605 [facility] [id number] [place] [address] [id number] Mar, Dental examination Z01.20 [place] [address] 79935- 7467 Mar, [facility] [id number] [place] [address] 72645 -4890 Mar, Cough R05 ; Viral gastroenteritis A08.4 and BMI 40.0-44.9, adult Z68.41 [facility] [id number] [place] [address] 63726- 9859 Mar, Left leg pain M79.605 [facility] [id number] [place] [address] 84238- 5760 Mar, Post-traumatic stress disorder, unspecified F43.10 ; Major depressive disorder, recurrent, moderate F33.1 and Problems related to release from residential Z65.2 [place] [id number] [place] [address] 50306- 3598 Feb, Left leg pain M79.605 [place] [id number] [place] [address] 65144- 4638 Feb, [place] [id number] [place] [address] 41078- 5083 Feb, BMI 40.0-44.9, adult Z68.41 ; Chronic pain syndrome G89.4 ; Migraine without aura and without status migrainosus, not intractable G43.009 ; Mitral valve prolapse I34.1 and 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 [place] [id number] [place] [address] 79153- 7817 Feb, Post-traumatic stress disorder, chronic F43.12 ; Anxiety F41.9 ; Problems related to release from residential Z65.2 and BMI 40.0-44.9, adult Z68.41 [id number] [place] [address] 97192- 6803 Feb, Post-traumatic stress disorder, unspecified F43.10 ; Major depressive disorder, recurrent, moderate F33.1 and Problems related to release from residential Z65.2 [place] [id number] [place] [address] 30900- 5503 Feb, Left leg pain M79.605 [facility] [id number] [place] [address] 53720- 9893 Jan, Post-traumatic stress disorder, unspecified F43.10 ; Major depressive disorder, recurrent, moderate F33.1 and Problems related to release from residential Z65.2 [facility] [id number] [place] [address] 42788- 5270 Jan, [facility] [id number] [place] [address] 64775- 5253 Jan, [facility] [id number] [place] [address] 11006- 7270 Jan, Anxiety F41.9 [facility] [id number] [place] [address] 45883- 7504 Jan, Left leg pain M79.605 [facility] [id number] [place] [address] 26341- 3214 Dec, Left leg pain M79.605 [facility] [id number] [place] [address] 07996- 6342 Dec, [facility] [id number] [place] [address] 92340- 8205 Dec, Post-traumatic stress disorder, unspecified F43.10 ; Major depressive disorder, recurrent, moderate F33.1 and Problems related to release from residential Z65.2 [facility] [id number] [place] [address] 02144- 7825 Nov, Chronic pain G89.29 and Anxiety F41.9 [facility] [id number] [place] [id number]- 0759 24 Nov, 2016 Chronic pain G89.29 and Anxiety F41.9 [facility] [id number] [place] [address] 14563- 9434 16 Nov, 2016 Post-traumatic stress disorder, unspecified F43.10 ; Major depressive disorder, recurrent, moderate F33.1 and Problems related to release from residential Z65.2 [place] [address] 25320- 4578 09 Nov, 2016 Other abnormal findings in specimens from other organs, systems and tissues R89.8 ; Other male erectile dysfunction N52.8 ; Body mass index (BMI) of 40.0-44.9 in adult Z68.41 and Morbid (severe) obesity due to excess calories E66.01 [place] [id number] [place] [address] 14271- 7691 02 Nov, 2016 Post-traumatic stress disorder, unspecified F43.10 ; Major depressive disorder, recurrent, moderate F33.1 and Problems related to release from residential Z65.2 [facility] [id number] [place] [address] [id number] Oct, Dental examination Z01.[address] 84677- 0287 Oct, [address] 97926- 9485 Oct, Encounter for immunization Z23 [address] 59404- 9804 Oct, Chronic pain G89.29 ; Anxiety F41.9 ; Arrhythmia as indication for cardiac pacemaker replacement I49.9 and Glaucoma H40.9 [address] [id number] [place] [address] 21323- 7728 Oct, Anxiety F41.9 ; Post-traumatic stress disorder, chronic F43.12 and Problems related to release from residential Z65.[address] 13981- 6926 Oct, Post-traumatic stress disorder, unspecified F43.10 ; Major depressive disorder, recurrent, moderate F33.1 and Problems related to release from residential Z65.[address] 96624- 9532 Sep, Chronic pain G89.29 and Anxiety F41.9 [place] [id number] [place] [address] 84060- 0623 Sep, Post-traumatic stress disorder, unspecified F43.10 ; Major depressive disorder, recurrent, moderate F33.1 and Problems related to release from residential Z65.2 [place] [id number] [place] [address] 48153- 7910 Sep, Post-traumatic stress disorder, unspecified F43.10 ; Major depressive disorder, recurrent, moderate F33.1 and Problems related to release from residential Z65.2 [place] [id number] [place] [address] 04112- 4520 Sep, Chronic pain G89.29 [place] [id number] [place] [address] 54519- 2152 Aug, Dental caries, unspecified K02.9 [place] [id number] [place] [address] 98801- 0062 Aug, Sleep apnea, obstructive G47.33 ; Obesity E66.9 ; Chronic pain G89.29 ; HTN (hypertension) I10 ; Major depressive disorder, recurrent, moderate F33.1 ; Anxiety F41.9 ; Chronic tension headaches G44.229 ; Mitral valve prolapse I34.1 ; Arrhythmia as indication for cardiac pacemaker replacement I49.9 ; Dental caries, unspecified K02.9 ; Primary insomnia F51.01 and Hyperlipidemia E78.5 [place] [address] [place] [address] 70966- 1107 Aug, Post-traumatic stress disorder, unspecified F43.10 ; Major depressive disorder, recurrent, moderate F33.1 and Problems related to release from residential Z65.2 [place] [id number] [place] [address] 21163- 7114 Aug, Dental examination Z01.20 [facility] [id number] [place] [address] [id number] Aug, Dental examination Z01.20 [place] [id number] [place] [address] 80638- 6781 06 Aug, 2016 Post-traumatic stress disorder, unspecified F43.10 ; Major depressive disorder, recurrent, moderate F33.1 and Problems related to release from residential Z65.2 [place] [id number] [place] [address] 64102- 2636 Aug, Chronic pain G89.29 and Primary insomnia F51.01 [place] [id number] [place] [address] 61382- 6257 Jul, [place] [id number] [place] [address] 42743- 1137 Jul, [place] [id number] [place] [address] 35234- 7169 Jul, Nausea R11.0 [place] [id number] [place] [address] 41106- 6256 Jul, Arrhythmia as indication for cardiac pacemaker replacement I49.9 [place] [id number] [place] [address] 64726- 9266 Jul, Post-traumatic stress disorder, unspecified F43.10 ; Major depressive disorder, recurrent, moderate F33.1 and Problems related to release from residential Z65.2 [place] [id number] [place] [address] 23041- 4640 09 Jul, 2016 Anxiety F41.9 [place] [id number] [place] [address] 39835- 9493 08 Jul, 2016 Chronic pain G89.29 [address] [id number] [place] [address] 44241- 6234 Jul, Sleep apnea, obstructive G47.33 ; Hyperlipidemia E78.5 ; Chronic pain G89.29 ; Blindness and low vision H54.10 ; Major depressive disorder, recurrent, moderate F33.1 ; Anxiety F41.9 ; Mitral valve prolapse I34.1 ; Arrhythmia as indication for cardiac pacemaker replacement I49.9 ; Primary insomnia F51.01 ; Bilateral headaches R51 and Environmental allergies Z91.09 [place] [id number] [place] [address] 23534- 4891 Jul, Post-traumatic stress disorder, unspecified F43.10 ; Major depressive disorder, recurrent, moderate F33.1 and Problems related to release from residential Z65.2 [place] [address] 26297- 1330 June, Post-traumatic stress disorder, chronic F43.12 ; Anxiety F41.9 ; Problems related to release from residential Z65.2 ; Sleep apnea, obstructive G47.33 and Primary insomnia F51.01 [place] [address] 74331- 2517 June, [place] [address] 63147- 7140 June, [place] [address] 60993- 8468 June, [place] [id number] [place] [address] 25529- 9728 June, Chronic pain G89.29 [place] [id number] [place] [address] 46259- 6467 June, Chronic pain G89.29 [place] [id number] [place] [address] 56531- 1444 June, Lipoma of left lower extremity D17.24 ; Open wound T14.8 and Swelling of left lower extremity M79.89 [place] [id number] [place] [address] 23972- 8838 June, Post-traumatic stress disorder, unspecified F43.10 ; Major depressive disorder, recurrent, moderate F33.1 and Problems related to release from residential Z65.2 [place] [id number] [place] [address] 92165- 9186 May, Lipoma of left lower extremity D17.24 ; Major depressive disorder, recurrent, moderate F33.1 ; Sleep apnea, obstructive G47.33 ; Hyperlipidemia E78.5 ; Obesity E66.9 ; HTN (hypertension) I10 ; Glaucoma H40.9 ; CAD (coronary artery disease) I25.10 ; Chronic tension headaches G44.229 ; Chronic pain G89.29 ; Anxiety F41.9 ; Nausea R11.0 and Primary insomnia F51.[address] 36793- 1079 May, [address] 37173- 1981 May, Chronic pain G89.[address] 59571- 6233 May, [address] 10166- 0648 Apr, Post-traumatic stress disorder, unspecified F43.10 ; Major depressive disorder, recurrent, moderate F33.1 and Problems related to release from residential Z65.2 [address] [id number] [place] [address] 47638- 4518 Apr, Primary insomnia F51.01 ; Post-traumatic stress disorder, chronic F43.12 and Problems related to release from residential Z65.2 [address] [id number] [place] [address] 98517- 1433 Apr, Post-traumatic stress disorder, unspecified F43.10 ; Major depressive disorder, recurrent, moderate F33.1 and Problems related to release from residential Z65.2 [id number] [place] [address] 74910- 1344 Apr, [address] 51268- 5520 Apr, Sleep apnea, obstructive G47.33 ; Chronic pain G89.29 ; HTN (hypertension) I10 ; Mitral valve prolapse I34.1 ; Shoulder pain, left M25.512 ; Arrhythmia as indication for cardiac pacemaker replacement I49.9 ; Glaucoma H40.9 ; Bilateral headaches R51 ; Environmental allergies Z91.09 ; Primary insomnia F51.01 and Nausea R11.0 [place] [id number] [place] [address] 73573- 436 Apr, [place] [id number] [place] [address] 43676- 9411 Apr, [place] [address] 27675- 4021 Apr, Post-traumatic stress disorder, unspecified F43.10 ; Major depressive disorder, recurrent, moderate F33.1 and Problems related to release from residential Z65.2 [place] [id number] [place] [address] 60272- 3581 Apr, HTN (hypertension) I10 [place] [id number] [place] [address] 54494- 2606 Apr, HTN (hypertension) I10 [place] [id number] [place] [address] 56254- 4680 14 Mar, 2016 Chronic pain G89.29 ; Primary insomnia F51.01 and Problems related to release from residential Z65.2 [place] [id number] [place] [address] 52177- 8426 07 Mar, 2016 Post-traumatic stress disorder, unspecified F43.10 ; Major depressive disorder, recurrent, moderate F33.1 and Problems related to release from residential Z65.2 [place] [id number] [place] [address] 89404- 1633 Feb, Post-traumatic stress disorder, unspecified F43.10 ; Major depressive disorder, recurrent, moderate F33.1 and Problems related to release from residential Z65.2 [place] [id number] [place] [address] 98576- 3111 Feb, Chronic tension headaches G44.229 [place] [id number] [place] [address] 87066- 8771 Feb, Sleep apnea, obstructive G47.33 ; [...] I49.9 and Primary insomnia F51.01 [place] [id number] [place] [address] 09494- 6870 17 Feb, 2016 Post-traumatic stress disorder, unspecified F43.10 and Chronic pain G89.29 [place] [id number] [place] [address] 86680- 1034 Feb, [facility] [id number] [place] [address] [id number] Feb, Dental caries K02.9 [place] [id number] [place] [address] 13971- 6999 06 Feb, 2016 [place] [id number] [place] [address] 79393- 1881 Feb, Post-traumatic stress disorder, unspecified F43.10 ; Major depressive disorder, recurrent, moderate F33.1 and Problems related to release from residential Z65.2 [place] [id number] [place] [address] 70869- 1838 Jan, Sleep apnea, obstructive G47.33 and Chronic pain G89.29 [place] [id number] [place] [address] 89087- 0855 Jan, [place] [id number] [place] [address] 54604- 4141 14 Jan, 2016 Dental examination Z01.20 [place] [id number] [place] [address] 75353- 3965 Jan, [place] [id number] [address]- 4786 Jan, [place] [id number] [place] [address] 81783- 0172 Dec, Post-traumatic stress disorder, unspecified F43.10 ; Major depressive disorder, recurrent, moderate F33.1 and Problems related to release from residential Z65.2 [place] [id number] [place] [address] 35493- 5725 Dec, Encounter for immunization Z23 ; Problems related to release from residential Z65.2 ; Sleep apnea, obstructive G47.33 and Post-traumatic stress disorder, chronic F43.12 [place] [id number] [place] [address] 64010- 4218 Dec, Sleep apnea, obstructive G47.33 ; Hyperlipidemia E78.5 ; Chronic pain G89.29 ; Glaucoma H40.9 ; HTN (hypertension) I10 ; Post-traumatic stress disorder, unspecified F43.10 ; Anxiety F41.9 ; Chronic tension headaches G44.229 ; Mitral valve prolapse I34.1 and CAD (coronary artery disease) I25.10 [place] [id number] [place] [address] 97014- 6357 Dec, Post-traumatic stress disorder, unspecified F43.10 ; Major depressive disorder, recurrent, moderate F33.1 and Problems related to release from residential Z65.2 [place] [id number] [place] [address] 49528- 6676 Nov, Chronic pain G89.29 [place] [id number] [place] [address] 00326- 3166 Nov, Post-traumatic stress disorder, unspecified F43.10 ; Major depressive disorder, recurrent, moderate F33.1 and Problems related to release from residential Z65.2 [address] [place] [address] 57779- 5688 Oct, [place] [id number] [place] [address] 25213- 7349 Oct, [facility] [address] [place] [address] 29493- 8826 Oct, Post-traumatic stress disorder, unspecified F43.10 ; Major depressive disorder, recurrent, moderate F33.1 and Problems related to release from residential Z65.2 [facility] [id number] [place] [address] 38848- 0807 08 Oct, 2015 [facility] [id number] [place] [address] 04739- 3744 07 Oct, 2015 Environmental allergies Z91.09 ; Cough R05 and Open-angle glaucoma of both eyes H40.10X0 [facility] [id number] [place] [address] 31877- 5065 Sep, [facility] [id number] [place] [address] 74858- 5957 Sep, Post-traumatic stress disorder, unspecified F43.10 ; Major depressive disorder, recurrent, moderate F33.1 and Problems related to release from residential Z65.2 [facility] [id number] [place] [address] 02321- 5812 Sep, Chronic pain G89.29 [facility] [id number] [place] [address] 06401- 0671 Sep, Pain in left shoulder M25.512 ; Pain in right shoulder M25.511 and Other chronic pain G89.29 [facility] [address] [place] [address] 46716- 7906 Sep, [facility] [id number] [place] [address] 89791- 9631 Sep, [facility] [id number] [place] [address] 71911- 9998 Sep, [facility] [address] [place] [address] [id number] Aug, Dental examination Z01.20 [facility] [address] [place] [address]- 0111 Aug, Post-traumatic stress disorder, unspecified F43.10 ; Open- angle glaucoma of both eyes H40.10X0 and Problems related to release from residential Z65.2 [facility] [id number] [place] [address] 17944- 3517 Aug, [facility] [address] 03075- 0075 Aug, Sleep apnea, obstructive G47.33 ; Obesity E66.9 ; Hyperlipidemia E78.5 ; Bilateral headaches R51 ; HTN (hypertension) I10 ; Post- traumatic stress disorder, unspecified F43.10 ; Anxiety F41.9 ; Neuropathy G62.9 ; Glaucoma H40.9 and Chronic pain G89.29 [facility] [id number] [place] [id number] Aug, Encounter for dental examination Z01.20 [place] [address] [address] Aug, Post-traumatic stress disorder, unspecified F43.10 ; Major depressive disorder, recurrent, moderate F33.1 and Problems related to release from residential Z65.2 [place] [address] [address] Aug, [facility] [id number] [place], [place] [address] 04644- 8180 Jul, [facility] [id number] [place] [address] 50916- 7341 Jul, Post-traumatic stress disorder, unspecified F43.10 and Major depressive disorder, recurrent, moderate F33.1 [facility] [address] 68704- 5041 Jul, [facility] [id number] [place] [address] 71035- 5849 Jul, [facility] [address] 85176- 2925 Jul, Chronic pain G89.29 [facility] [id number] [place] [address] 10675- 1324 June, Post-traumatic stress disorder, unspecified F43.10 and Major depressive disorder, recurrent, moderate F33.1 [facility] [id number] [place] [address] 15521- 4508 June, [facility] [id number] [place] [address] 23334- 8771 June, Chronic pain G89.29 [facility] [id number] [place] [address] 77447- 1233 June, Post-traumatic stress disorder, unspecified F43.10 and Major depressive disorder, recurrent, moderate F33.1 [facility] [id number] [place] [address] 27163- 8330 May, Post-traumatic stress disorder, unspecified F43.10 and Major depressive disorder, recurrent, moderate F33.1 [facility] [id number] [place] [address] 81627- 3203 May, [facility] [id number] [place] [address] 46253- 2979 May, [facility] [id number] [place] [address] 63801- 2990 May, [facility] [id number] [place] [address] 03673- 4432 Apr, [facility] [id number] [place] [address] 77367- 1001 Apr, Post-traumatic stress disorder, unspecified F43.10 and Sleep apnea, obstructive G47.33 [facility] [id number] [place] [address] 11167- 5899 Apr, [facility] [id number] [place] [address] 35613- 0225 Apr, Shoulder pain, left M25.512 [facility] [id number] [place] [address] 85353- 8874 Apr, Post-traumatic stress disorder, unspecified F43.10 and Major depressive disorder, recurrent, moderate F33.1 [facility] [id number] [place] [address] 58357- 5833 17 Apr, 2015 [facility] [id number] [place] [address] 78785- 2814 Apr, [facility] [id number] [place] [address] 48060- 3036 08 Apr, 2015 [facility] [id number] [place] [address] 53465- 8196 07 Apr, 2015 Left shoulder pain M25.512 [facility] [id number] [place] [address] 98869- 3539 Mar, [facility] [id number] [place] [address] 82046- 6249 Mar, [facility] [id number] [place] [address] 53153- 6317 18 Mar, 2015 [facility] [id number] [place] [address] 69009- 1652 12 Mar, 2015 Sleep apnea, obstructive G47.33 ; Obesity E66.9 ; Chronic pain G89.29 ; Hyperlipidemia E78.5 ; HTN (hypertension) I10 ; Blindness and low vision H54.10 ; Major depressive disorder, recurrent, moderate F33.1 and Anxiety F41.9 [facility] [id number] [place] [address] 11120- 2911 Mar, [facility] [id number] [place] [address] 88596- 0015 10 Mar, 2015 Post-traumatic stress disorder, unspecified F43.10 and Major depressive disorder, recurrent, moderate F33.1 [facility] [id number] [place] [id number]- [address]46 Mar, [place] [id number] [place] [address] 58856- 8086 Mar, HTN (hypertension) I10 ; Blindness and low vision H54.10 ; Obesity E66.9 ; Hyperlipidemia E78.5 ; Glaucoma H40.9 ; Chronic pain G89.29 and CAD (coronary artery disease) I25.10 [place] [id number] [place] [address] 51644- 7301 Feb, [place] [id number] [place] [address] 48051- 8557 Feb, Post-traumatic stress disorder, unspecified F43.10 ; Obesity E66.9 ; Sleep apnea, obstructive G47.33 and Open-angle glaucoma of both eyes H40.10X0 [place] [id number] [place] [address] 16649- 5374 Feb, Post-traumatic stress disorder, unspecified F43.10 and Major depressive disorder, recurrent, moderate F33.1 [place] [id number] [place] [address] 60225- 7609 Feb, [place] [id number] [place] [address] 22342- 1085 Feb, [place] [id number] [place] [address] 33342- 2419 Feb, HTN (hypertension) I10 ; Post-traumatic stress disorder, unspecified F43.10 ; Blindness and low vision H54.10 ; Obesity E66.9 ; Hyperlipidemia E78.5 ; Chronic pain G89.29 ; Glaucoma H40.9 ; Mitral valve prolapse I34.1 and Bilateral headaches R51 [place] [id number] [place] [address] 39821- 8534 Feb, [place] [id number] [place] [address] 90873- 6655 Feb, Post-traumatic stress disorder, unspecified F43.10 and Major depressive disorder, recurrent, moderate F33.1 [place] [id number] [place] [address] 20152- 9211 Feb, [place] [id number] [place] [address] 49216- 4228 Feb, [place] [id number] [place] [address] 54164- 9158 Jan, [place] [address] 70354- 2622 Jan, [place] [id number] [place] [address] 12639- 3175 Jan, Obesity E66.9 ; HTN (hypertension) I10 ; Blindness and low vision H54.10 ; Major depressive disorder, recurrent, moderate F33.1 ; Glaucoma H40.9 ; Hyperlipidemia E78.5 ; Sleep apnea, obstructive G47.33 ; Chronic pain G89.29 ; Anxiety F41.9 ; Chronic tension headaches G44.229 and Cough R05 [place] [id number] [place] [address] 56814- 2467 Jan, [place] [id number] [place] [address] 34405- 9591 Jan, [place] [id number] [place] [address] 87152- 7292 Jan, Post-traumatic stress disorder, unspecified F43.10 ; Obesity E66.9 ; Sleep apnea, obstructive G47.33 and Open-angle glaucoma of both eyes H40.10X0 [place] [id number] [place] [address] 40577- 5960 Jan, [place] [id number] [place] [address] 24431- 0202 Jan, Post-traumatic stress disorder, unspecified F43.10 and Major depressive disorder, recurrent, moderate F33.1 [place] [id number] [place] [address] 93473- 1445 Dec, [facility] [id number] [place] [address] 34395- 6422 Dec, Sleep apnea, obstructive G47.33 ; Obesity E66.9 ; Hyperlipidemia E78.5 ; Glaucoma H40.9 ; Chronic pain G89.29 ; HTN (hypertension ) I10 ; Blindness and low vision H54.10 ; Anxiety F41.9 and CAD (coronary artery disease) I25.10 [facility] [address] 20565- 3065 Nov, [facility] [address] 59094- 1512 Nov, [facility] [address] 12269- 2184 Nov, [facility] [address] 57826- 1572 Nov, [facility] [address] 61688- 2673 Nov, [facility] [address] [place] [address] 93863- 2844 Nov, Encounter for immunization Z23 ; Sleep apnea, obstructive G47.33 ; Obesity E66.9 ; Hyperlipidemia E78.5 ; Glaucoma H40.9 ; Chronic pain G89.29 ; Anxiety F41.9 ; Chronic tension headaches G44.229 and HTN (hypertension ) I10 [facility] [id number] [place] [address] 07068- 8033 Nov, [facility] [address] [place] [address] 81382- 3726 Nov, [facility] [address] [place] [address] 54237- 5117 Nov, Dizziness R42 [facility] [address] 99661- 9628 Nov, [facility] [address] [place] [address] 89768- 5916 Oct, [facility] [id number] [place] [address] 28246- 4056 Oct, [facility] [id number] [place] [address] 11712- 1707 Oct, [facility] [id number] [place] [address] 74130- 8829 Oct, [facility] [address] 22541- 3654 Oct, Dizziness 780.4 ; Essential hypertension 401.9 ; Obesity 278.00 ; Hyperlipidemia 272.4 ; Chronic pain 338.29 ; Glaucoma 365.9 and Anxiety 300.00 [place] [id number] [place] [address] 50425- 3558 Oct, Essential hypertension 401.9 ; Hyperlipidemia 272.4 ; Glaucoma 365.9 ; Obesity 278.00 ; Chronic pain 338.29 and Allergy to insects V15.06 [facility] [id number] [place] [address] 77240- 8562 Sep, [place] [address] 10016- 7337 Sep, [facility] [id number] [place] [address] 90676- 7164 Sep, [place] [id number] [place] [address] 82241- 6248 Sep, [facility] [id number] [place] [address] 34250- 0911 Aug, Essential hypertension 401.9 ; Obesity 278.00 ; Hyperlipidemia 272.4 ; Glaucoma 365.9 ; Lipoma 214.9 ; Mitral valve prolapse 424.0 ; Angina at rest 413.9 ; Lymphedema 457.1 and Chronic pain 338.29 IMMUNIZATIONS No Known Immunizations SOCIAL HISTORY Never Assessed REASON FOR VISIT cheryle PLAN OF CARE Activity Details Follow Up prn Reason:As needed VITAL SIGNS Height 67 in 2016-11-06 Blood pressure systolic 123 mmHg 2016-11-06 Blood pressure diastolic 91 mmHg 2016-11-06 MEDICATIONS Medication Instructions Dosage Frequency Start Date End Date Duration Status Topamax 100 mg Orally Twice a day 1 tablet 12h Active Zofran ODT 4 MG Orally every 8 hrs prn 1 tablet on the tongue and allow to dissolve 10 Active Gabapentin 300 MG Orally 2 times a day 1 capsule 12h Active Metoprolol Succinate ER 200 mg Orally Once a day 1 tablet 24h Active Cartia XT 300 MG Orally Once a day 1 capsule 24h 30 Active EPINEPHrine HCl 0.3 mg as directed Oct, 30 days Active Viagra 100 mg Orally Once a day prn 1 tablet as needed Jul, 10 days Active Nitrostat 0.4 MG Sublingual every 5 minutes x 3 PRN 1 tablet 30 days Active Hydrocodone-Acetaminophen 7.5-325 MG Orally 4 times a day 1 tablet 6h Oct, 28 days Active Xanax 1 MG Orally Twice a day for anxiety 1 tablet 30 days Active Elavil 25 MG Orally Take 1 tablet at HS for 3 night then can increase to 1 or 2 tabs at HS for sleep 1 tablet Oct, Active Furosemide 40 MG Orally Once a day 1 tablet 24h Active Atorvastatin Calcium 40 mg Orally Once a day 1 tablet 24h Active Timolol Hemihydrate 0.5 % Ophthalmic 2 times a day 1 drop into both eyes 12h 20 Dec, 2014 Active RESULTS No Results PROCEDURES Procedure Date Ordered Result Body Site LTD ORAL EVALUATION - PROBLEM FOCUS Nov 06, 2016 INTRAORL-PERIAPICAL 1 FILM [id number] Nov 06, 2016 INSTRUCTIONS MEDICATIONS ADMINISTERED No Known Medications [...]
--- OUTSIDE RECORDS SUMMARY | 2018-02-04 15:29 | XMS REPORT | Continuity of Care Document ---
Author Author [facility] Organization [facility] Address Unknown Phone Unavailable Allergies Active Description Code Type Severity Reaction Onset Reported/Identified Relationship to Patient Clinical Status Yes ASPIRIN UNKNOWN GI PROBLEMS - NAUSEA Yes PENICILLINS UNKNOWN DERMATOLOGICAL - BALA Yes WASP VENOM UNKNOWN UNKNOWN Yes XALATAN UNKNOWN UNKNOWN Yes aspirin [id number] Drug Allergy Unknown N/A 07/19/2014 Yes Penicillins [id number] Drug Allergy Unknown N/A 07/19/2014 Yes aspirin [id number] Drug Allergy Unknown N/A 07/19/2014 Yes Penicillins [id number] Drug Allergy Unknown N/A 07/19/2014 Yes aspirin [id number] Drug Allergy Moderate STOMACH ACHE 03/18/2016 Yes Penicillins [id number] Drug Allergy Moderate N/V 03/18/2016 Medications Medication Packaging Start Date Stop Date Route Dosage Sig NITROSTAT TAB 0.4 MG (NITROQUICK) MG 05/06/2017 05/06/2017 [id number] Problems Date Dx Coded Attending Type Code Diagnosis Diagnosed By 12/20/2012 Dilcia BURNETT, C Barry Desai 729.5 PAIN IN LIMB 07/24/2014 CARYN AVILES DO A Ot 272.4 07/24/2014 CARYN AVILES DO A Ot 401.9 07/24/2014 CARYN AVILES DO A Ot 785.0 08/04/2014 NWAGWU, ISIDORE O INDUSTRIAL TWISTING MACHINE OPERATOR Ot 272.4 08/04/2014 NWAGWU, ISIDORE O INDUSTRIAL TWISTING MACHINE OPERATOR Ot 278.01 08/04/2014 NWAGWU, ISIDORE O INDUSTRIAL TWISTING MACHINE OPERATOR Ot 401.9 08/04/2014 NWAGWU, ISIDORE O INDUSTRIAL TWISTING MACHINE OPERATOR Ot 424.0 08/04/2014 NWAGWU, ISIDORE O INDUSTRIAL TWISTING MACHINE OPERATOR Ot 785.0 08/18/2014 ALEXANDRIA GRIFFITH Ot 401.9 08/18/2014 STEVE GRIFFITHDWIGHT Dillon Ot 682.6 08/18/2014 FELIBERTO MARTINEZ, ALEX[place]RIA L Ot 729.5 08/18/2014 FELIBERTO MARTINEZ, [place]LEX[place]RIA L Ot 998.13 08/18/2014 FELIBERTO MARTINEZ [place] L Ot V58.69 08/24/2014 CARYN AVILES DO Ot 272.4 08/24/2014 GELLENDER DO, CARYN Desai Ot 401.9 08/24/2014 GELLENDER DO, CARYN Desai Ot 785.0 08/24/2014 NWAGWU, ISIDORE O INDUSTRIAL TWISTING MACHINE OPERATOR Ot 272.4 08/24/2014 NWAGWU, ISIDORE O INDUSTRIAL TWISTING MACHINE OPERATOR Ot 278.01 08/24/2014 NWAGWU, ISIDORE O INDUSTRIAL TWISTING MACHINE OPERATOR Ot 401.9 08/24/2014 NWAGWU, ISIDORE O INDUSTRIAL TWISTING MACHINE OPERATOR Ot 424.0 08/24/2014 NWAGWU, ISIDORE O INDUSTRIAL TWISTING MACHINE OPERATOR Ot 785.0 08/24/2014 PHAM BLACKMON INDUSTRIAL TWISTING MACHINE OPERATOR Ot 338.18 08/24/2014 PHAM BLACKMON INDUSTRIAL TWISTING MACHINE OPERATOR Ot 729.5 08/31/2014 PHAM BLACKMON INDUSTRIAL TWISTING MACHINE OPERATOR Ot 305.90 08/31/2014 PHAM BLACKMON INDUSTRIAL TWISTING MACHINE OPERATOR Ot 338.18 08/31/2014 PHAM BLACKMON INDUSTRIAL TWISTING MACHINE OPERATOR Ot 729.5 08/31/2014 PHAM BLACKMON INDUSTRIAL TWISTING MACHINE OPERATOR Ot V65.2 10/11/2014 CARYN AVILES DO Ot 272.4 10/11/2014 GELHANNAH RICHTER CARYN Desai Ot 401.9 10/11/2014 GELLENDER CARYN A Ot 785.0 10/11/2014 NWAGWU, ISIDORE O INDUSTRIAL TWISTING MACHINE OPERATOR Ot 272.4 10/11/2014 NWAGWU, ISIDORE O INDUSTRIAL TWISTING MACHINE OPERATOR Ot 278.01 10/11/2014 NWAGWU, ISIDORE O INDUSTRIAL TWISTING MACHINE OPERATOR Ot 401.9 10/11/2014 NWAGWU, ISIDORE O INDUSTRIAL TWISTING MACHINE OPERATOR Ot 424.0 10/11/2014 NWAGWU, ISIDORE O INDUSTRIAL TWISTING MACHINE OPERATOR Ot 785.0 10/22/2014 MONTANEZGENIA GONZALEZ DO Ot 782.2 10/22/2014 GENIA MONTANEZ DO Ot V45.89 11/08/2014 Ot G47.33 12/09/2014 Ot G47.33 12/09/2014 Ot S63.501A UNSPECIFIED SPRAIN OF RIGHT WRIST, INITI 12/09/2014 Ot W10.9XXA FALL (ON) (FROM) UNSPECIFIED STAIRS AND 12/09/[address] IN SINGLE-FAMILY (PRIVATE) HO 12/09/2014 Ot Y99.8 OTHER EXTERNAL CAUSE STATUS 02/14/2015 CONNOR PAULSON MD Ot I10 ESSENTIAL (PRIMARY) HYPERTENSION 02/14/2015 CONNOR PAULSON MD Ot I34.1 NONRHEUMATIC MITRAL (VALVE) PROLAPSE 02/14/2015 CONNOR PAULSON MD Ot R00.0 TACHYCARDIA, UNSPECIFIED 02/14/2015 CONNOR PAULSON MD Ot R07.89 OTHER CHEST PAIN 03/12/2015 SAJI BURNETT FACC, ALI FACP CCDS Ot E66.01 MORBID (SEVERE) OBESITY DUE TO EXCESS CA 03/12/2015 SAJI BURNETT FACC, ALI FACP CCDS Ot E78.5 HYPERLIPIDEMIA, UNSPECIFIED 03/12/2015 SAJI BURNETT FACC, ALI FACP CCDS Ot G47.30 SLEEP APNEA, UNSPECIFIED 03/12/2015 SAJI BURNETT FACC, ALI FACP CCDS Ot H40.9 UNSPECIFIED GLAUCOMA 03/12/2015 SAJI BURNETT FACC, ALI FACP CCDS Ot I10 ESSENTIAL (PRIMARY) HYPERTENSION 03/12/2015 SAJI BURNETT FACC, ALI FACP CCDS Ot R00.2 PALPITATIONS 03/12/2015 SAJI BURNETT FACC, ALI FACP CCDS Ot R07.89 OTHER CHEST PAIN 03/12/2015 SAJI BURNETT FACC, ALI FACP CCDS Ot Z68.42 BODY MASS INDEX (BMI) 45.0-49.9, ADULT 03/12/2015 SAJI BURNETT FACC, ALI FACP CCDS Ot Z79.899 OTHER CUSTODIAL (CURRENT) DRUG THERAPY 03/12/2015 SAJI BURNETT FACC, ALI FACP CCDS Ot Z87.891 PERSONAL HISTORY OF NICOTINE DEPENDENCE 03/13/2015 Ot E78.5 03/13/2015 Ot I10 03/13/2015 Ot I51.7 03/13/2015 Ot R00.0 03/13/2015 Ot R00.2 05/07/2015 GENIA MONTANEZ DO Ot R22.42 05/17/2015 Ot E78.5 05/17/2015 Ot I10 05/17/2015 Ot I51.7 05/17/2015 Ot R00.0 05/17/2015 Ot R00.2 05/17/2015 GENIA MONTANEZ DO Ot R22.42 05/17/2015 VIIV BURNETT, FRANCISCO Byrd Ot S43.432A SUPERIOR GLENOID LABRUM LESION OF LEFT S 05/17/2015 VIVI BURNETT, FRANCISCO Byrd Ot Z01.12 ENCOUNTER FOR HEARING CONSERVATION AND T 05/17/2015 VIVI BURNETT, FRANCISCO Byrd Ot Z11.2 ENCOUNTER FOR SCREENING FOR OTHER BACTER 05/20/2015 VIVI BURNETT, FRANCISCO Byrd Ot S43.432A 05/20/2015 VIVI BURNETT, FRANCISCO Byrd Ot Z01.12 05/20/2015 VIVI BURNETT, FRANCISCO Byrd Ot Z11.2 05/22/2015 VIVI BURNETT, FRANCISCO Byrd Ot E78.5 HYPERLIPIDEMIA, UNSPECIFIED 05/22/2015 VIVI BURNETT, FRANCISCO Byrd Ot F32.9 MAJOR DEPRESSIVE DISORDER, SINGLE EPISOD 05/22/2015 VIVI BURNETT, FRANCISCO Byrd Ot I10 ESSENTIAL (PRIMARY) HYPERTENSION 05/22/2015 VIVI BURNETT, FRANCISCO Byrd Ot I25.10 ATHSCL HEART DISEASE OF [place] CORONARY 05/22/2015 VIVI BURNETT, FRANCISCO Byrd Ot M75.102 UNSP ROTATR-CUFF TEAR/RUPTR OF LEFT SHOU 05/22/2015 VIVI BURNETT, FRANCISCO Byrd Ot S43.432A SUPERIOR GLENOID LABRUM LESION OF LEFT S 05/23/2015 VIVI BURNETT, FRANCISCO Byrd Ot E78.5 05/23/2015 VIVI BURNETT, FRANCISCO Byrd Ot F32.9 05/23/2015 VIVI BURNETT, FRANCISCO P Ot I10 05/23/2015 VIVI BURNETT, FRANCISCO Byrd Ot I25.10 05/23/2015 VIVI BURNETT, FRANCISCO Byrd Ot M75.102 05/23/2015 VIVI BURNETT, FRANCISCO Byrd Ot S43.432A 05/23/2015 VIVI BURNETT, FRANCISCO Byrd Ot E78.5 05/23/2015 VIVI BURNETT, FRANCISCO Byrd Ot F32.9 05/23/2015 FRANCISCO TRINIDAD MD Ot I10 05/23/2015 FRANCISCO TRINIDAD MD Ot I25.10 05/23/2015 FRANCISCO TRINIDAD MD Ot M75.102 05/23/2015 FRANCISCO TRINIDAD MD, Ot S43.432A 09/26/2015 Ot E78.5 HYPERLIPIDEMIA, UNSPECIFIED 09/26/2015 Ot I10 ESSENTIAL ( PRIMARY) HYPERTENSION 09/26/2015 Ot I51.7 CARDIOMEGALY 09/26/2015 Ot R00.0 TACHYCARDIA, UNSPECIFIED 09/26/2015 Ot R00.2 PALPITATIONS 09/26/2015 LISSETH RICHTER GENIA D Ot R22.42 LOCALIZED SWELLING, MASS AND LUMP, LEFT 09/26/2015 FRANCISCO TRINIDAD MD Ot S43.431A SUPERIOR GLENOID LABRUM LESION OF RIGHT 09/26/2015 FRANCISCO TRINIDAD MD Ot Z01.812 ENCOUNTER FOR PREPROCEDURAL LABORATORY E 09/26/2015 FRANCISCO TRINIDAD MD Ot Z11.2 ENCOUNTER FOR SCREENING FOR OTHER BACTER 09/27/2015 FRANCISCO TRINIDAD MD Ot S43.431A SUPERIOR GLENOID LABRUM LESION OF RIGHT 09/27/2015 FRANCISCO TRINIDAD MD Ot Z01.812 ENCOUNTER FOR PREPROCEDURAL LABORATORY E 09/27/2015 FRANCISCO TRINIDAD MD Ot Z11.2 ENCOUNTER FOR SCREENING FOR OTHER BACTER 10/02/2015 FRANCISCO TRINIDAD MD Ot E78.5 HYPERLIPIDEMIA, UNSPECIFIED 10/02/2015 FRANCISCO TRINIDAD MD Ot F32.9 MAJOR DEPRESSIVE DISORDER, SINGLE EPISOD 10/02/2015 FRANCISCO TRINIDAD MD Ot I10 ESSENTIAL (PRIMARY) HYPERTENSION 10/02/2015 FRANCISCO TRINIDAD MD Ot I25.10 ATHSCL HEART DISEASE OF [place] CORONARY 10/02/2015 FRANCISCO TRINIDAD MD Ot S43.431A SUPERIOR GLENOID LABRUM LESION OF RIGHT 10/02/2015 FRANCISCO TRINIDAD MD Ot Z79.899 OTHER CUSTODIAL (CURRENT) DRUG THERAPY 10/02/2015 FRANCISCO TRINIDAD MD Ot Z87.891 PERSONAL HISTORY OF NICOTINE DEPENDENCE 10/03/2015 FRANCISCO TRINIDAD MD Ot E78.5 HYPERLIPIDEMIA, UNSPECIFIED 10/03/2015 FRANCISCO TRINIDAD MD Ot F32.9 MAJOR DEPRESSIVE DISORDER, SINGLE EPISOD 10/03/2015 FRANCISCO TRINIDAD MD, Ot I10 ESSENTIAL (PRIMARY) HYPERTENSION 10/03/2015 FRANCISCO TRINIDAD MD, Ot I25.10 ATHSCL HEART DISEASE OF [place] CORONARY 10/03/2015 FRANCISCO TRINIDAD MD, Ot S43.431A SUPERIOR GLENOID LABRUM LESION OF RIGHT 10/03/2015 FRANCISCO TRINIDAD MD, Ot Z79.899 OTHER SET OFF PRESS OPERATOR (CURRENT) DRUG THERAPY 10/03/2015 FRANCISCO TRINIDAD MD, Ot Z87.891 PERSONAL HISTORY OF NICOTINE DEPENDENCE 02/21/2016 BIRD BURNETT, Laurence ARIZA Ot E78.5 HYPERLIPIDEMIA, UNSPECIFIED 02/21/2016 Laurence PANG MD, Ot F17.210 NICOTINE DEPENDENCE, CIGARETTES, UNCOMPL 02/21/2016 Laurence PANG MD, Ot I10 ESSENTIAL (PRIMARY) HYPERTENSION 02/21/2016 BIRD BURNETT, Laurence ARIZA Ot I48.91 UNSPECIFIED ATRIAL FIBRILLATION 02/21/2016 Laurence PANG MD, Ot I49.5 SICK SINUS SYNDROME 02/21/2016 Laurence PANG MD, Ot Z79.899 OTHER SET OFF PRESS OPERATOR (CURRENT) DRUG THERAPY 02/24/2016 Ot E78.5 HYPERLIPIDEMIA, UNSPECIFIED 02/24/2016 Ot I10 ESSENTIAL ( PRIMARY) HYPERTENSION 02/24/2016 Ot I51.7 CARDIOMEGALY 02/24/2016 Ot R00.0 TACHYCARDIA, UNSPECIFIED 02/24/2016 Ot R00.2 PALPITATIONS 02/24/2016 GENIA MONTANEZ DO Ot R22.42 LOCALIZED SWELLING, MASS AND LUMP, LEFT 03/18/2016 FRANCISCO TRINIDAD MD, Ot M19.011 PRIMARY OSTEOARTHRITIS, RIGHT SHOULDER 03/18/2016 FRANCISCO TRINIDAD MD Ot Z01.812 ENCOUNTER FOR PREPROCEDURAL LABORATORY E 03/18/2016 FRANCISCO TRINIDAD MD, Ot Z11.2 ENCOUNTER FOR SCREENING FOR OTHER BACTER 03/19/2016 FRANCISCO TRINIDAD MD, Ot M19.011 PRIMARY OSTEOARTHRITIS, RIGHT SHOULDER 03/19/2016 FRANCISCO TRINIDAD MD Ot Z01.812 ENCOUNTER FOR PREPROCEDURAL LABORATORY E 03/19/2016 FRANCISCO TRINIDAD MD, Ot Z11.2 ENCOUNTER FOR SCREENING FOR OTHER BACTER 03/24/2016 FRANCISCO TRINIDAD MD, Ot M19.011 PRIMARY OSTEOARTHRITIS, RIGHT SHOULDER 03/24/2016 FRANCISCO TRINIDAD MD, Ot Z01.812 ENCOUNTER FOR PREPROCEDURAL LABORATORY E 03/24/2016 FRANCISCO TRINIDAD MD, Ot Z11.2 ENCOUNTER FOR SCREENING FOR OTHER BACTER 03/25/2016 Ot E78.5 HYPERLIPIDEMIA, UNSPECIFIED 03/25/2016 Ot I10 ESSENTIAL ( PRIMARY) HYPERTENSION 03/25/2016 Ot I51.7 CARDIOMEGALY 03/25/2016 Ot R00.0 TACHYCARDIA, UNSPECIFIED 03/25/2016 Ot R00.2 PALPITATIONS 03/25/2016 GENIA MONTANEZ DO Ot R22.42 LOCALIZED SWELLING, MASS AND LUMP, LEFT 03/25/2016 FRANCISCO TRINIDAD MD, Ot M19.011 PRIMARY OSTEOARTHRITIS, RIGHT SHOULDER 03/25/2016 FRANCISCO TRINIDAD MD Ot M75.41 IMPINGEMENT SYNDROME OF RIGHT SHOULDER 03/26/2016 FRANCISCO TRINIDAD MD, Ot M19.011 PRIMARY OSTEOARTHRITIS, RIGHT SHOULDER 03/26/2016 FRANCISCO TRINIDAD MD Ot M75.41 IMPINGEMENT SYNDROME OF RIGHT SHOULDER 05/01/2016 SAJI BURNETT FACC, RANCHO FACP CCDS Ot G47.33 OBSTRUCTIVE SLEEP APNEA (ADULT) (PEDIATR 05/01/2016 SAJI BURNETT FACC, ALI FACP CCDS Ot I10 ESSENTIAL (PRIMARY) HYPERTENSION 05/01/2016 SAJI BURNETT FACC, ALI FACP CCDS Ot I47.1 SUPRAVENTRICULAR TACHYCARDIA 05/01/2016 SAJI BURNETT FACC, ALI FACP CCDS Ot I49.5 SICK SINUS SYNDROME 05/01/2016 SAJI BURNETT FACC, RANCHO FACP CCDS Ot R00.2 PALPITATIONS 05/01/2016 SAJI BURNETT FACC, ALI FACP CCDS Ot Z72.0 TOBACCO USE 05/01/2016 SAJI BURNETT FACC, ALI FACP CCDS Ot Z95.0 PRESENCE OF CARDIAC PACEMAKER 05/07/2016 SAJI BURNETT FACC, ALI FACP CCDS Ot G47.33 OBSTRUCTIVE SLEEP APNEA (ADULT) (PEDIATR 05/07/2016 SAJI BURNETT FACC, ALI FACP CCDS Ot I10 ESSENTIAL (PRIMARY) HYPERTENSION 05/07/2016 SAJI MD FACC, ALI FACP CCDS Ot I47.1 SUPRAVENTRICULAR TACHYCARDIA 05/07/2016 SAJI BURNETT FACC, ALI FACP CCDS Ot I49.5 SICK SINUS SYNDROME 05/07/2016 SAJI BURNETT FACC, ALI FACP CCDS Ot R00.2 PALPITATIONS 05/07/2016 SAJI BURNETT FACC, ALI FACP CCDS Ot Z72.0 TOBACCO USE 05/07/2016 SAJI BURNETT FACC, ALI FACP CCDS Ot Z95.0 PRESENCE OF CARDIAC PACEMAKER 05/13/2016 SAJI BURNETT FACC, ALI FACP CCDS Ot G47.33 OBSTRUCTIVE SLEEP APNEA (ADULT) (PEDIATR 05/13/2016 SAJI BURNETT FACC, ALI FACP CCDS Ot I10 ESSENTIAL (PRIMARY) HYPERTENSION 05/13/2016 SAJI BURNETT FACC, ALI FACP CCDS Ot I47.1 SUPRAVENTRICULAR TACHYCARDIA 05/13/2016 SAJI BURNETT FACC, ALI FACP CCDS Ot I49.5 SICK SINUS SYNDROME 05/13/2016 [facility] FACP CCDS Ot R00.2 PALPITATIONS 05/13/2016 SAJI BURNETT [facility], ALI FACP CCDS Ot Z72.0 TOBACCO USE 05/13/2016 SAJI BURNETT FACC, ALI FACP CCDS Ot Z95.0 PRESENCE OF CARDIAC PACEMAKER 06/05/2016 PHAM BLACKMON APRN Ot F17.210 NICOTINE DEPENDENCE, CIGARETTES, UNCOMPL 06/05/2016 PHAM BLACKMON APRN Ot I10 ESSENTIAL (PRIMARY) HYPERTENSION 06/05/2016 PHAM BLACKMON APRN Ot L76.31 POSTPROC HEMATOMA OF SKIN, SUBCU FOL A D 06/05/2016 PHAM BLACKMON APRN Ot T81.31XA DISRUPTION OF EXTERNAL OPERATION (SURGIC 06/05/2016 PHAM BLACKMON APRN Ot Z95.0 PRESENCE OF CARDIAC PACEMAKER 06/07/2016 PHAM BLACKMON APRN Ot F17.210 NICOTINE DEPENDENCE, CIGARETTES, UNCOMPL 06/07/2016 PHAM BLACKMON APRN Ot I10 ESSENTIAL (PRIMARY) HYPERTENSION 06/07/2016 PHAM BLACKMON APRN Ot L76.31 POSTPROC HEMATOMA OF SKIN, SUBCU FOL A D 06/07/2016 PHAM BLACKMON APRN Ot T81.31XA DISRUPTION OF EXTERNAL OPERATION (SURGIC 06/07/2016 PHAM BLACKMON APRN Ot Z95.0 PRESENCE OF CARDIAC PACEMAKER 06/19/2016 ALEXANDRIA GRIFFITH Ot F17.210 NICOTINE DEPENDENCE, CIGARETTES, UNCOMPL 06/19/2016 ALEXANDRIA GRIFFITH Ot I10 ESSENTIAL (PRIMARY) HYPERTENSION 06/19/2016 ALEXANDRIA GRIFFITH Ot L76.34 POSTPROC SEROMA OF SKIN, SUBCU FOLLOWING 06/19/2016 ALEXANDRIA GRIFFITH Ot Z79.899 OTHER SET OFF PRESS OPERATOR (CURRENT) DRUG THERAPY 06/19/2016 ALEXANDRIA GRIFFITH Ot Z95.0 PRESENCE OF CARDIAC PACEMAKER 11/10/2016 SAJI BURNETT FACC, ALI FACP CCDS Ot G47.33 OBSTRUCTIVE SLEEP APNEA (ADULT) (PEDIATR 11/10/2016 SAJI BURNETT FACC, ALI FACP CCDS Ot I10 ESSENTIAL (PRIMARY) HYPERTENSION 11/10/2016 SAJI BURNETT FACC, ALI FACP CCDS Ot I47.1 SUPRAVENTRICULAR TACHYCARDIA 11/10/2016 SAJI BURNETT FACC, ALI FACP CCDS Ot I49.5 SICK SINUS SYNDROME 11/10/2016 SAJI BURNETT FACC, ALI FACP CCDS Ot R00.2 PALPITATIONS 11/10/2016 SAJI BURNETT FACC, ALI FACP CCDS Ot Z72.0 TOBACCO USE 11/10/2016 SAJI BURNETT FACC, ALI FACP CCDS Ot Z95.0 PRESENCE OF CARDIAC PACEMAKER 11/27/2016 FRITZ HELMS MD Ot D49.2 NEOPLASM OF UNSP BEHAVIOR OF BONE, SOFT 11/27/2016 FRITZ HELMS MD Ot Z98.890 OTHER SPECIFIED POSTPROCEDURAL STATES 12/29/2016 SAJI BURNETT FACC, ALI FACP CCDS Ot I47.2 VENTRICULAR TACHYCARDIA 12/29/2016 SAJI BURNETT FACC, ALI FACP CCDS Ot Z95.0 PRESENCE OF CARDIAC PACEMAKER 02/04/2017 SAJI BURNETT FACC, ALI FACP CCDS Ot E66.8 OTHER OBESITY 02/04/2017 SAJI BURNETT FACC, ALI FACP CCDS Ot G47.33 OBSTRUCTIVE SLEEP APNEA (ADULT) (PEDIATR 02/04/2017 SAJI BURNETT FACC, ALI FACP CCDS Ot I10 ESSENTIAL (PRIMARY) HYPERTENSION 02/04/2017 SAJI BURNETT FACC, ALI FACP CCDS Ot I47.1 SUPRAVENTRICULAR TACHYCARDIA 02/04/2017 SAJI BURNETT FACC, ALI FACP CCDS Ot I47.2 VENTRICULAR TACHYCARDIA 02/04/2017 SAJI BURNETT FACC, ALI FACP CCDS Ot Z72.0 TOBACCO USE 02/04/2017 SAJI BURNETT FACC, ALI FACP CCDS Ot Z95.0 PRESENCE OF CARDIAC PACEMAKER 02/16/2017 SAJI BURNETT FACC, ALI FACP CCDS Ot E66.8 OTHER OBESITY 02/16/2017 SAJI BURNETT FACC, ALI FACP CCDS Ot G47.33 OBSTRUCTIVE SLEEP APNEA (ADULT) (PEDIATR 02/16/2017 SAJI BURNETT FACC, ALI FACP CCDS Ot I10 ESSENTIAL (PRIMARY) HYPERTENSION 02/16/2017 [facility], [facility]I FACP CCDS Ot I47.1 SUPRAVENTRICULAR TACHYCARDIA 02/16/2017 [facility], ALI FACP CCDS Ot I47.2 VENTRICULAR TACHYCARDIA 02/16/2017 [facility], ALI FACP CCDS Ot Z72.0 TOBACCO USE 02/16/2017 SAJI BURNETT [facility], ALI FACP CCDS Ot Z95.0 PRESENCE OF CARDIAC PACEMAKER 03/03/2017 SAJI BURNETT [facility], ALI FACP CCDS Ot E66.8 OTHER OBESITY 03/03/2017 SAJI BURNETT [facility], ALI FACP CCDS Ot G47.33 OBSTRUCTIVE SLEEP APNEA (ADULT) (PEDIATR 03/03/2017 [facility], [facility]I FACP CCDS Ot I10 ESSENTIAL (PRIMARY) HYPERTENSION 03/03/2017 SAJI BURNETT [facility], ALI FACP CCDS Ot I47.1 SUPRAVENTRICULAR TACHYCARDIA 03/03/2017 SAJI BURNETT [facility], ALI FACP CCDS Ot I47.2 VENTRICULAR TACHYCARDIA 03/03/2017 SAJI BURNETT [facility], ALI FACP CCDS Ot Z72.0 TOBACCO USE 03/03/2017 SAJI BURNETT [facility], ALI FACP CCDS Ot Z95.0 PRESENCE OF CARDIAC PACEMAKER 03/03/2017 KAYLA KOENIG NEUROLOGY TECHNICIAN Ot E66.01 MORBID (SEVERE) OBESITY DUE TO EXCESS CA 03/03/2017 KAYLA KOENIG NEUROLOGY TECHNICIAN Ot I10 ESSENTIAL (PRIMARY) HYPERTENSION 03/03/2017 KAYLA KOENIG NEUROLOGY TECHNICIAN Ot I47.1 SUPRAVENTRICULAR TACHYCARDIA 03/03/2017 KAYLA KOENIG NEUROLOGY TECHNICIAN Ot I47.2 VENTRICULAR TACHYCARDIA 03/03/2017 KAYLA KOENIG NEUROLOGY TECHNICIAN Ot I49.5 SICK SINUS SYNDROME 03/03/2017 KAYLA KOENIG NEUROLOGY TECHNICIAN Ot R00.2 PALPITATIONS 03/10/2017 DONTA RICH INDUSTRIAL TWISTING MACHINE OPERATOR Ot I47.2 VENTRICULAR TACHYCARDIA 03/10/2017 DONTA RICH INDUSTRIAL TWISTING MACHINE OPERATOR Ot I51.4 MYOCARDITIS, UNSPECIFIED 03/24/2017 DONTA RICH INDUSTRIAL TWISTING MACHINE OPERATOR Ot I47.2 VENTRICULAR TACHYCARDIA 03/24/2017 DONTA RICH INDUSTRIAL TWISTING MACHINE OPERATOR Ot I51.4 MYOCARDITIS, UNSPECIFIED 05/06/2017 Brown, Jarred W 786.5 CHEST PAIN 05/06/2017 Brown, Jarred W R07.9 CHEST PAIN, UNSPECIFIED 05/06/2017 Brown, Jarred W 272.4 OTHER AND UNSPECIFIED HYPERLIPIDEMIA 05/06/2017 Brown, Jarred W 401.0 MALIGNANT ESSENTIAL HYPERTENSION 05/06/2017 Brown, Jarred W 427.31 ATRIAL FIBRILLATION 05/06/2017 Brown, Jarred W 786.5 CHEST PAIN 05/06/2017 Brown, Jarred A 786.50 05/06/2017 Brown, Jarred W E78.5 HYPERLIPIDEMIA, UNSPECIFIED 05/06/2017 Brown, Jarred W I10 ESSENTIAL (PRIMARY) HYPERTENSION 05/06/2017 Brown, Jarred W I48.91 UNSPECIFIED ATRIAL FIBRILLATION 05/06/2017 Brown, Jarred A R07.9 CHEST PAIN, UNSPECIFIED 05/17/2017 JESUS BURNETT, PAMELA Negron Ot R05 COUGH 05/17/2017 JESUS BURNETT, PAMELA Negron Ot R59.1 GENERALIZED ENLARGED LYMPH NODES 05/17/2017 PAMELA LEE MD Ot R05 COUGH 05/17/2017 PAMELA LEE MD Ot R59.1 GENERALIZED ENLARGED LYMPH NODES 05/19/2017 SAJI BURNETT FACC, ALI FACP CCDS Ot G47.33 OBSTRUCTIVE SLEEP APNEA (ADULT) (PEDIATR 05/19/2017 SAJI BURNETT FACC, ALI FACP CCDS Ot I10 ESSENTIAL (PRIMARY) HYPERTENSION 05/19/2017 SAJI BURNETT FACC, RANCHO FACP CCDS Ot I47.1 SUPRAVENTRICULAR TACHYCARDIA 05/19/2017 SAJI BURNETT FACC, RANCHO BRADLEYP CCDS Ot I49.5 SICK SINUS SYNDROME 05/19/2017 SAJI MD FACC, ALI FACP CCDS Ot R00.2 PALPITATIONS 05/19/2017 SAJI BRADLEYC, ALI FACP CCDS Ot Z72.0 TOBACCO USE 05/19/2017 SAJI BURNETT FACC, ALI FACP CCDS Ot Z95.0 PRESENCE OF CARDIAC PACEMAKER 05/19/2017 FRITZ HELMS MD Ot D49.2 NEOPLASM OF UNSP BEHAVIOR OF BONE, SOFT 05/19/2017 FRITZ HELMS MD Ot Z98.890 OTHER SPECIFIED POSTPROCEDURAL STATES 05/19/2017 SAJI BRADLEYC, ALI FACP CCDS Ot I47.2 VENTRICULAR TACHYCARDIA 05/19/2017 SAJI BURNETT FACC, ALI FACP CCDS Ot Z95.0 PRESENCE OF CARDIAC PACEMAKER 05/19/2017 SAJI BRADLEYC, ALI FACP CCDS Ot E66.8 OTHER OBESITY 05/19/2017 SAJI BRADLEYC, ALI FACP CCDS Ot G47.33 OBSTRUCTIVE SLEEP APNEA (ADULT) (PEDIATR 05/19/2017 SAJI BRADLEYC, ALI FACP CCDS Ot I10 ESSENTIAL (PRIMARY) HYPERTENSION 05/19/2017 SAJI BRADLEYC, ALI FACP CCDS Ot I47.1 SUPRAVENTRICULAR TACHYCARDIA 05/19/2017 SAJI BURNETT FACC, ALI FACP CCDS Ot I47.2 VENTRICULAR TACHYCARDIA 05/19/2017 SAJI BRADLEYC, ALI FACP CCDS Ot Z72.0 TOBACCO USE 05/19/2017 SAJI BURNETT FACC, ALI FACP CCDS Ot Z95.0 PRESENCE OF CARDIAC PACEMAKER 05/19/2017 SAJI BRADLEYC, ALI FACP CCDS Ot E66.8 OTHER OBESITY 05/19/2017 SAJI BURNETT FACC, ALI FACP CCDS Ot G47.33 OBSTRUCTIVE SLEEP APNEA (ADULT) (PEDIATR 05/19/2017 SAJI BURNETT FACC, ALI FACP CCDS Ot I10 ESSENTIAL (PRIMARY) HYPERTENSION 05/19/2017 SAJI BURNETT FACC, ALI FACP CCDS Ot I47.1 SUPRAVENTRICULAR TACHYCARDIA 05/19/2017 SAJI BURNETT FACC, ALI FACP CCDS Ot I47.2 VENTRICULAR TACHYCARDIA 05/19/2017 SAJI BRADLEYC, ALI FACP CCDS Ot Z72.0 TOBACCO USE 05/19/2017 SAJI BURNETT FACC, ALI FACP CCDS Ot Z95.0 PRESENCE OF CARDIAC PACEMAKER 05/19/2017 KAYLA KOENIG NEUROLOGY TECHNICIAN Ot E66.01 MORBID (SEVERE) OBESITY DUE TO EXCESS CA 05/19/2017 KAYLA KOENIG NEUROLOGY TECHNICIAN Ot I10 ESSENTIAL (PRIMARY) HYPERTENSION 05/19/2017 KAYLA KOENIG NEUROLOGY TECHNICIAN Ot I47.1 SUPRAVENTRICULAR TACHYCARDIA 05/19/2017 KAYLA KOENIG NEUROLOGY TECHNICIAN Ot I47.2 VENTRICULAR TACHYCARDIA 05/19/2017 KAYLA KOENIG NEUROLOGY TECHNICIAN Ot I49.5 SICK SINUS SYNDROME 05/19/2017 KAYLA KOENIG NEUROLOGY TECHNICIAN Ot R00.2 PALPITATIONS 05/19/2017 DONTA RICH INDUSTRIAL TWISTING MACHINE OPERATOR Ot I47.2 VENTRICULAR TACHYCARDIA 05/19/2017 DONTA RICH INDUSTRIAL TWISTING MACHINE OPERATOR Ot I51.4 MYOCARDITIS, UNSPECIFIED 05/19/2017 JESUS BURNETT, PAMELA Negron Ot R05 COUGH 05/19/2017 JESUS BURNETT, PAMELA Negron Ot R59.1 GENERALIZED ENLARGED LYMPH NODES 05/31/2017 JESUS BURNETT, PAMELA Negron Ot R05 COUGH 05/31/2017 JESUS BURNETT, PAMELA Negron Ot R59.1 GENERALIZED ENLARGED LYMPH NODES 07/08/2017 SAJI BRADLEYC, ALI FACP CCDS Ot G47.33 OBSTRUCTIVE SLEEP APNEA (ADULT) (PEDIATR 07/08/2017 SAJI BURNETT FACC, ALI FACP CCDS Ot I10 ESSENTIAL (PRIMARY) HYPERTENSION 07/08/2017 SAJI BRADLEYC, ALI FACP CCDS Ot I47.1 SUPRAVENTRICULAR TACHYCARDIA 07/08/2017 SAJI BURNETT FACC, ALI FACP CCDS Ot I49.5 SICK SINUS SYNDROME 07/08/2017 SAJI BURNETT FACC, ALI FACP CCDS Ot R00.2 PALPITATIONS 07/08/2017 SAJI BURNETT FACC, ALI FACP CCDS Ot Z72.0 TOBACCO USE 07/08/2017 SAJI BURNETT FACC, ALI FACP CCDS Ot Z95.0 PRESENCE OF CARDIAC PACEMAKER 07/08/2017 FRITZ HELMS MD Ot D49.2 NEOPLASM OF UNSP BEHAVIOR OF BONE, SOFT 07/08/2017 FRITZ HELMS MD Ot Z98.890 OTHER SPECIFIED POSTPROCEDURAL STATES 07/08/2017 SAJI BURNETT FACC, RANCHO FACP CCDS Ot I47.2 VENTRICULAR TACHYCARDIA 07/08/2017 SAJI BURNETT FACC, ALI FACP CCDS Ot Z95.0 PRESENCE OF CARDIAC PACEMAKER 07/08/2017 SAJI MD FACC, ALI FACP CCDS Ot E66.8 OTHER OBESITY 07/08/2017 SAJI MD FACC, ALI FACP CCDS Ot G47.33 OBSTRUCTIVE SLEEP APNEA (ADULT) (PEDIATR 07/08/2017 SAJI MD FACC, ALI FACP CCDS Ot I10 ESSENTIAL (PRIMARY) HYPERTENSION 07/08/2017 SAJI MD FACC, ALI FACP CCDS Ot I47.1 SUPRAVENTRICULAR TACHYCARDIA 07/08/2017 SAJI MD FACC, ALI FACP CCDS Ot I47.2 VENTRICULAR TACHYCARDIA 07/08/2017 SAJI MD FACC, ALI FACP CCDS Ot Z72.0 TOBACCO USE 07/08/2017 SAJI MD FACC, ALI FACP CCDS Ot Z95.0 PRESENCE OF CARDIAC PACEMAKER 07/08/2017 SAJI MD FACC, ALI FACP CCDS Ot E66.8 OTHER OBESITY 07/08/2017 SAJI MD FACC, ALI FACP CCDS Ot G47.33 OBSTRUCTIVE SLEEP APNEA (ADULT) (PEDIATR 07/08/2017 SAJI MD FACC, ALI FACP CCDS Ot I10 ESSENTIAL (PRIMARY) HYPERTENSION 07/08/2017 [facility] FAC, ALI FACP CCDS Ot I47.1 SUPRAVENTRICULAR TACHYCARDIA 07/08/2017 [facility] FAC, ALI FACP CCDS Ot I47.2 VENTRICULAR TACHYCARDIA 07/08/2017 [facility] FACC, ALI FACP CCDS Ot Z72.0 TOBACCO USE 07/08/2017 SAJI MD FACC, ALI FACP CCDS Ot Z95.0 PRESENCE OF CARDIAC PACEMAKER 07/08/2017 KAYLA KOENIG NEUROLOGY TECHNICIAN Ot E66.01 MORBID (SEVERE) OBESITY DUE TO EXCESS CA 07/08/2017 KAYLA KOENIG L NEUROLOGY TECHNICIAN Ot I10 ESSENTIAL (PRIMARY) HYPERTENSION 07/08/2017 KAYLA KOENIG NEUROLOGY TECHNICIAN Ot I47.1 SUPRAVENTRICULAR TACHYCARDIA 07/08/2017 KAYLA KOENIG NEUROLOGY TECHNICIAN Ot I47.2 VENTRICULAR TACHYCARDIA 07/08/2017 KAYLA KOENIG NEUROLOGY TECHNICIAN Ot I49.5 SICK SINUS SYNDROME 07/08/2017 KAYLA KOENIG NEUROLOGY TECHNICIAN Ot R00.2 PALPITATIONS 07/08/2017 DONTA RICH INDUSTRIAL TWISTING MACHINE OPERATOR Ot I47.2 VENTRICULAR TACHYCARDIA 07/08/2017 DONTA RICH Analisa VELAZQUEZN Ot I51.4 MYOCARDITIS, UNSPECIFIED 07/08/2017 JESUS BURNETT, PAMELA Negron Ot R05 COUGH 07/08/2017 JESUS BURNETT, PAMELA Negron Ot R59.1 GENERALIZED ENLARGED LYMPH NODES 07/08/2017 PHAM BLACKMON APRN Ot E78.00 PURE HYPERCHOLESTEROLEMIA, UNSPECIFIED 07/08/2017 PHAM BLACKMON APRN Ot F41.9 ANXIETY DISORDER, UNSPECIFIED 07/08/2017 PHAM BLACKMON APRN Ot F43.10 POST-TRAUMATIC STRESS DISORDER, UNSPECIF 07/08/2017 PHAM BLACKMON APRN Ot F91.3 OPPOSITIONAL DEFIANT DISORDER 07/08/2017 PHAM BLACKMON APRN Ot G43.909 MIGRAINE, UNSP, NOT INTRACTABLE, WITHOUT 07/08/2017 PHAM BLACKMON APRN Ot G47.30 SLEEP APNEA, UNSPECIFIED 07/08/2017 PHAM BLACKMON APRN Ot I10 ESSENTIAL (PRIMARY) HYPERTENSION 07/08/2017 PHAM BLACKMON APRN Ot J06.9 ACUTE UPPER RESPIRATORY INFECTION, UNSPE 07/08/2017 PHAM BLACKMON APRN Ot M19.011 PRIMARY OSTEOARTHRITIS, RIGHT SHOULDER 07/08/2017 PHAM BLACKMON APRN Ot R05 COUGH 07/08/2017 PHAM BLACKMON APRN Ot Z87.891 PERSONAL HISTORY OF NICOTINE DEPENDENCE 07/08/2017 PHAM BLACKMON APRN Ot Z88.0 ALLERGY STATUS TO PENICILLIN 07/08/2017 PHAM BLACKMON APRN Ot Z88.6 ALLERGY STATUS TO ANALGESIC AGENT STATUS 07/08/2017 PHAM BLACKMON APRN Ot Z95.0 PRESENCE OF CARDIAC PACEMAKER 07/12/2017 PHAM BLACKMON APRN Ot E78.00 PURE HYPERCHOLESTEROLEMIA, UNSPECIFIED 07/12/2017 PHAM BLACKMON APRN Ot F41.9 ANXIETY DISORDER, UNSPECIFIED 07/12/2017 PHAM BLACKMON APRN Ot F43.10 POST-TRAUMATIC STRESS DISORDER, UNSPECIF 07/12/2017 HPAM BLACKMON APRN Ot F91.3 OPPOSITIONAL DEFIANT DISORDER 07/12/2017 PHAM BLACKMON APRN Ot G43.909 MIGRAINE, UNSP, NOT INTRACTABLE, WITHOUT 07/12/2017 PHAM BLACKMON APRN Ot G47.30 SLEEP APNEA, UNSPECIFIED 07/12/2017 PHAM BLACKMON APRN Ot I10 ESSENTIAL (PRIMARY) HYPERTENSION 07/12/2017 PHAM BLACKMON APRN Ot J06.9 ACUTE UPPER RESPIRATORY INFECTION, UNSPE 07/12/2017 PHAM BLACKMON APRN Ot M19.011 PRIMARY OSTEOARTHRITIS, RIGHT SHOULDER 07/12/2017 PHAM BLACKMON APRN Ot R05 COUGH 07/12/2017 PHAM BLACKMON APRN Ot Z87.891 PERSONAL HISTORY OF NICOTINE DEPENDENCE 07/12/2017 PHAM BLACKMON APRN Ot Z88.0 ALLERGY STATUS TO PENICILLIN 07/12/2017 PHAM BLACKMON APRN Ot Z88.6 ALLERGY STATUS TO ANALGESIC AGENT STATUS 07/12/2017 PHAM BLACKMON APRN Ot Z95.0 PRESENCE OF CARDIAC PACEMAKER Procedures Code Description Performed By Performed On [id number] INSERT OF MONITOR DEV INTO CHEST SUBCU/F 03/12/2015 [id number] MEASURE OF CARDIAC SAMPL PRESSURE, L H 03/12/2015 [id number] FLUOROSCOPY OF MULT COR ART USING L OSM 03/12/2015 [id number] FLUOROSCOPY OF LEFT HEART USING LOW OSMO 03/12/2015 [id number] FLUOROSCOPY OF THORACIC AORTA USING LOW 03/12/2015 Results Test Result Range Whole blood basic metabolic panel - 09/26/15 11:22 Serum or plasma sodium measurement (moles/volume) 141 mmol/L 135-145 Serum or plasma potassium measurement (moles/volume) 4.1 mmol/L 3.6-5.0 Serum or plasma chloride measurement (moles/volume) 112 mmol/L 98-107 Carbon dioxide 25 mmol/L 21-32 Serum or plasma anion gap determination (moles/volume) 4 mmol/L 5-14 Serum or plasma urea nitrogen measurement (mass/volume) 15 mg/dL 7-18 Serum or plasma creatinine measurement (mass/volume) 0.97 mg/dL 0.60-1.30 Serum or plasma urea nitrogen/creatinine mass ratio 15 NRG Serum or plasma creatinine measurement with calculation of estimated glomerular filtration rate > NRG Serum or plasma glucose measurement (mass/volume) 107 mg/dL 70-105 Serum or plasma calcium measurement (mass/volume) 9.6 mg/dL 8.5-10.1 Methicillin resistant Staphylococcus aureus (MRSA) screening culture - 11:22 Methicillin resistant Staphylococcus aureus (MRSA) screening culture NEG NRG Automated blood complete blood count (hemogram) panel - 02/20/16 08:23 Blood leukocytes automated count (number/volume) 5.6 10*3/uL 4.3-11.0 Blood erythrocytes automated count (number/volume) 4.89 10*6/uL 4.35-5.85 Venous blood hemoglobin measurement (mass/volume) 14.4 g/dL 13.3-17.7 Blood hematocrit (volume fraction) 42 % 40-54 Automated erythrocyte mean corpuscular volume 87 [foz_us] 80-99 Automated erythrocyte mean corpuscular hemoglobin (mass per erythrocyte) 29 pg 25-34 Automated erythrocyte mean corpuscular hemoglobin concentration measurement ( mass/volume) 34 g/dL 32-36 Automated erythrocyte distribution width ratio 12.8 % 10.0-14.5 Automated blood platelet count (count/volume) 142 10*3/uL 130-400 Automated blood platelet mean volume measurement 12.5 [foz_us] 7.4-10.4 PT panel in platelet poor plasma by coagulation assay - 02/20/16 08:23 Prothrombin time (PT) in platelet poor plasma by coagulation assay 13.5 s 12.2-14.7 INR in platelet poor plasma or blood by coagulation assay 1.1 0.8-1.4 Activated partial thromboplastin time (aPTT) in platelet poor plasma bycoagulation assay - 02/20/16 08:23 Activated partial thromboplastin time (aPTT) in platelet poor plasma bycoagulation assay 35 s 24-35 Comprehensive metabolic panel - 02/20/16 08:23 Serum or plasma sodium measurement (moles/volume) 140 mmol/L 135-145 Serum or plasma potassium measurement (moles/volume) 3.3 mmol/L 3.6-5.0 Serum or plasma chloride measurement (moles/volume) 109 mmol/L 98-107 Carbon dioxide 20 mmol/L 21-32 Serum or plasma anion gap determination (moles/volume) 11 mmol/L 5-14 Serum or plasma urea nitrogen measurement (mass/volume) 14 mg/dL 7-18 Serum or plasma creatinine measurement (mass/volume) 0.95 mg/dL 0.60-1.30 Serum or plasma urea nitrogen/creatinine mass ratio 15 NRG Serum or plasma creatinine measurement with calculation of estimated glomerular filtration rate > NRG Serum or plasma glucose measurement (mass/volume) 97 mg/dL 70-105 Serum or plasma calcium measurement (mass/volume) 9.1 mg/dL 8.5-10.1 Serum or plasma total bilirubin measurement (mass/volume) 0.9 mg/dL 0.1-1.0 Serum or plasma alkaline phosphatase measurement (enzymatic activity/volume) 85 U/L 40-136 Serum or plasma aspartate aminotransferase measurement (enzymatic activity/ volume) 18 U/L 5-34 Serum or plasma alanine aminotransferase measurement (enzymatic activity/volume ) 16 U/L 0-55 Serum or plasma protein measurement (mass/volume) 7.2 g/dL 6.4-8.2 Serum or plasma albumin measurement (mass/volume) 4.1 g/dL 3.2-4.5 Methicillin resistant Staphylococcus aureus (MRSA) screening culture - 08:23 Methicillin resistant Staphylococcus aureus (MRSA) screening culture NEG NRG Automated blood complete blood count (hemogram) panel - 02/21/16 03:26 Blood leukocytes automated count (number/volume) 5.7 10*3/uL 4.3-11.0 Blood erythrocytes automated count (number/volume) 4.12 10*6/uL 4.35-5.85 Venous blood hemoglobin measurement (mass/volume) 12.0 g/dL 13.3-17.7 Blood hematocrit (volume fraction) 37 % 40-54 Automated erythrocyte mean corpuscular volume 90 [foz_us] 80-99 Automated erythrocyte mean corpuscular hemoglobin (mass per erythrocyte) 29 pg 25-34 Automated erythrocyte mean corpuscular hemoglobin concentration measurement ( mass/volume) 33 g/dL 32-36 Automated erythrocyte distribution width ratio 12.8 % 10.0-14.5 Automated blood platelet count (count/volume) 127 10*3/uL 130-400 Automated blood platelet mean volume measurement 13.4 [foz_us] 7.4-10.4 Comprehensive metabolic panel - 02/21/16 03:26 Serum or plasma sodium measurement (moles/volume) 140 mmol/L 135-145 Serum or plasma potassium measurement (moles/volume) 3.7 mmol/L 3.6-5.0 Serum or plasma chloride measurement (moles/volume) 114 mmol/L 98-107 Carbon dioxide 19 mmol/L 21-32 Serum or plasma anion gap determination (moles/volume) 7 mmol/L 5-14 Serum or plasma urea nitrogen measurement (mass/volume) 14 mg/dL 7-18 Serum or plasma creatinine measurement (mass/volume) 0.84 mg/dL 0.60-1.30 Serum or plasma urea nitrogen/creatinine mass ratio 17 NRG Serum or plasma creatinine measurement with calculation of estimated glomerular filtration rate > NRG Serum or plasma glucose measurement (mass/volume) 113 mg/dL 70-105 Serum or plasma calcium measurement (mass/volume) 7.9 mg/dL 8.5-10.1 Serum or plasma total bilirubin measurement (mass/volume) 0.4 mg/dL 0.1-1.0 Serum or plasma alkaline phosphatase measurement (enzymatic activity/volume) 57 U/L 40-136 Serum or plasma aspartate aminotransferase measurement (enzymatic activity/ volume) 14 U/L 5-34 Serum or plasma alanine aminotransferase measurement (enzymatic activity/volume ) 14 U/L 0-55 Serum or plasma protein measurement (mass/volume) 5.5 g/dL 6.4-8.2 Serum or plasma albumin measurement (mass/volume) 3.1 g/dL 3.2-4.5 CBC With Differential/Platelet - 02/25/16 13:59 WBC 6.0 x10E3/uL 3.4-10.8 RBC 4.94 x10E6/uL 4.14-5.80 Hemoglobin 14.4 g/dL 12.6-17.7 Hematocrit 43.4 % 37.5-51.0 MCV 88 fL 79-97 MCH 29.1 pg 26.6-33.0 MCHC 33.2 g/dL 31.5-35.7 RDW 13.0 % 12.3-15.4 Platelets 167 x10E3/uL 150-379 Neutrophils 69 % Lymphs 20 % Monocytes 9 % Eos 2 % Basos 0 % Neutrophils (Absolute) 4.1 x10E3/uL 1.4-7.0 Lymphs (Absolute) 1.2 x10E3/uL 0.7-3.1 Monocytes(Absolute) 0.6 x10E3/uL 0.1-0.9 Eos (Absolute) 0.1 x10E3/uL 0.0-0.4 Baso (Absolute) 0.0 x10E3/uL 0.0-0.2 Immature Granulocytes 0 % Immature Grans (Abs) 0.0 x10E3/uL 0.0-0.1 Comp. Metabolic Panel (14) - 02/25/16 13:59 Glucose, Serum 104 mg/dL 65-99 BUN 14 mg/dL 6-24 Creatinine, Serum 0.86 mg/dL 0.76-1.27 eGFR If NonAfricn Am 105 mL/min/1.73 >59 eGFR If Africn Am 121 mL/min/1.73 >59 BUN/Creatinine Ratio 16 9-20 Sodium, Serum 141 mmol/L 134-144 Potassium, Serum 4.1 mmol/L 3.5-5.2 Chloride, Serum 103 mmol/L 96-106 Carbon Dioxide, Total 23 mmol/L 18-29 Calcium, Serum 9.1 mg/dL 8.7-10.2 Protein, Total, Serum 6.8 g/dL 6.0-8.5 Albumin, Serum 3.9 g/dL 3.5-5.5 Globulin, Total 2.9 g/dL 1.5-4.5 A/G Ratio 1.3 1.1-2.5 Bilirubin, Total 0.4 mg/dL 0.0-1.2 Alkaline Phosphatase, S 88 IU/L 39-117 AST (SGOT) 26 IU/L 0-40 ALT (SGPT) 21 IU/L 0-44 Lipid Panel - 02/25/16 13:59 Cholesterol, Total 193 mg/dL 100-199 Triglycerides 174 mg/dL 0-149 HDL Cholesterol 39 mg/dL >39 VLDL Cholesterol Ivan 35 mg/dL 5-40 LDL Cholesterol Calc 119 mg/dL 0-99 Complete blood count (CBC) with automated white blood cell (WBC) differential - 03/18/16 09:40 Blood leukocytes automated count (number/volume) 5.6 10*3/uL 4.3-11.0 Blood erythrocytes automated count (number/volume) 4.80 10*6/uL 4.35-5.85 Venous blood hemoglobin measurement (mass/volume) 14.2 g/dL 13.3-17.7 Blood hematocrit (volume fraction) 42 % 40-54 Automated erythrocyte mean corpuscular volume 88 [foz_us] 80-99 Automated erythrocyte mean corpuscular hemoglobin (mass per erythrocyte) 30 pg 25-34 Automated erythrocyte mean corpuscular hemoglobin concentration measurement ( mass/volume) 34 g/dL 32-36 Automated erythrocyte distribution width ratio 12.8 % 10.0-14.5 Automated blood platelet count (count/volume) 143 10*3/uL 130-400 Automated blood platelet mean volume measurement 12.5 [foz_us] 7.4-10.4 Automated blood neutrophils/100 leukocytes 61 % 42-75 Automated blood lymphocytes/100 leukocytes 26 % 12-44 Blood monocytes/100 leukocytes 10 % 0-12 Automated blood eosinophils/100 leukocytes 2 % 0-10 Automated blood basophils/100 leukocytes 0 % 0-10 Blood neutrophils automated count (number/volume) 3.4 10*3 1.8-7.8 Blood lymphocytes automated count (number/volume) 1.5 10*3 1.0-4.0 Blood monocytes automated count (number/volume) 0.6 10*3 0.0-1.0 Automated eosinophil count 0.1 10*3/uL 0.0-0.3 Automated blood basophil count (count/volume) 0.0 10*3/uL 0.0-0.1 Whole blood basic metabolic panel - 03/18/16 09:40 Serum or plasma sodium measurement (moles/volume) 141 mmol/L 135-145 Serum or plasma potassium measurement (moles/volume) 4.0 mmol/L 3.6-5.0 Serum or plasma chloride measurement (moles/volume) 112 mmol/L 98-107 Carbon dioxide 21 mmol/L 21-32 Serum or plasma anion gap determination (moles/volume) 8 mmol/L 5-14 Serum or plasma urea nitrogen measurement (mass/volume) 17 mg/dL 7-18 Serum or plasma creatinine measurement (mass/volume) 0.99 mg/dL 0.60-1.30 Serum or plasma urea nitrogen/creatinine mass ratio 17 NRG Serum or plasma creatinine measurement with calculation of estimated glomerular filtration rate > NRG Serum or plasma glucose measurement (mass/volume) 92 mg/dL 70-105 Serum or plasma calcium measurement (mass/volume) 8.6 mg/dL 8.5-10.1 Gram stain microscopy - 06/05/16 17:29 GRAM STAIN RESULT NO WBC'S OR BACTERIA OBSERVED NRG Bacteria identification in wound by culture - 06/05/16 17:29 Bacteria identification in wound by culture [id number] NRG QUANTITY OF GROWTH Scant Growth NRG CBC With Differential/Platelet - 06/15/16 16:43 WBC 7.0 x10E3/uL 3.4-10.8 RBC 5.23 x10E6/uL 4.14-5.80 Hemoglobin 15.7 g/dL 12.6-17.7 Hematocrit 45.7 % 37.5-51.0 MCV 87 fL 79-97 MCH 30.0 pg 26.6-33.0 MCHC 34.4 g/dL 31.5-35.7 RDW 13.7 % 12.3-15.4 Platelets 173 x10E3/uL 150-379 Neutrophils 63 % Lymphs 27 % Monocytes 9 % Eos 1 % Basos 0 % Neutrophils (Absolute) 4.3 x10E3/uL 1.4-7.0 Lymphs (Absolute) 1.9 x10E3/uL 0.7-3.1 Monocytes(Absolute) 0.6 x10E3/uL 0.1-0.9 Eos (Absolute) 0.1 x10E3/uL 0.0-0.4 Baso (Absolute) 0.0 x10E3/uL 0.0-0.2 Immature Granulocytes 0 % Immature Grans (Abs) 0.0 x10E3/uL 0.0-0.1 Gram stain microscopy - 06/19/16 22:02 GRAM STAIN RESULT NO WBC'S OR BACTERIA OBSERVED NR Bacteria identification in wound by culture - 06/19/16 22:02 Bacteria identification in wound by culture [id number] NRG QUANTITY OF GROWTH Moderate Growth NRG Gram stain microscopy - 06/19/16 23:16 GRAM STAIN RESULT NO WBC'S OR BACTERIA OBSERVED NRG Bacteria identification in wound by culture - 06/19/16 23:16 Bacteria identification in wound by culture [facility] Influenza virus A and B antigen detection - 03/09/17 09:57 FLU RESULT NEGATIVE FOR INFLUENZA A AND B ANTIGENS BY IA [facility] * Reference lab test name - 03/09/17 09:57 * Reference lab test results RESP VIRUS PNL [facility] Automated blood complete blood count (hemogram) panel - 03/09/17 10:30 Blood leukocytes automated count (number/volume) 7.1 10*3/uL 4.3-11.0 Blood erythrocytes automated count (number/volume) 5.80 10*6/uL 4.35-5.85 Venous blood hemoglobin measurement (mass/volume) 17.0 g/dL 13.3-17.7 Blood hematocrit (volume fraction) 50 % 40-54 Automated erythrocyte mean corpuscular volume 86 [foz_us] 80-99 Automated erythrocyte mean corpuscular hemoglobin (mass per erythrocyte) 29 pg 25-34 Automated erythrocyte mean corpuscular hemoglobin concentration measurement ( mass/volume) 34 g/dL 32-36 Automated erythrocyte distribution width ratio 12.9 % 10.0-14.5 Automated blood platelet count (count/volume) 190 10*3/uL 130-400 Automated blood platelet mean volume measurement 12.3 [foz_us] 7.4-10.4 Erythrocyte sedimentation rate by westergren method - 03/09/17 10:30 Erythrocyte sedimentation rate by westergren method 1 mm 0-15 Serum aldolase measurement - 03/09/17 10:30 Serum aldolase measurement 5.2 U/L 1.5-8.1 [id number] - 03/09/17 10:30 Screening antinuclear antibody (SERENA) assay by enzyme immunoassay <1: 80 <1:80 Serum DNA double strand antibody detection - 03/09/17 10:30 Serum DNA double strand antibody assay (units/volume) 29 [iU]/mL 0-300 Cerebrospinal fluid cytomegalovirus IgG and IgM panel - 03/09/17 10:30 [id number] Negative Negative Serum cytomegalovirus IgM antibody assay (units/volume) < AU 0.0-29.9 Cerebrospinal fluid cytomegalovirus IgG antibody titer < u[iU]/mL 0.00-0.59 Interpretation of cytomegalovirus (CMV) IgG antibody assay Negative Negative Serum or plasma complement C3 measurement (mass/volume) - 03/09/17 10:30 Complement C3 nephritic [mass/volume] in serum or plasma 133 % 73-183 Complement C4 [mass/volume] in serum or plasma - 03/09/17 10:30 Complement C4 [mass/volume] in serum or plasma 42 % 15- 59 Hepatitis A virus IgM antibody assay - 03/09/17 10:30 Hepatitis A virus IgM antibody assay Non-Reactive Non- Reactive Serum hepatitis B virus core antibody assay (units/volume) - 03/09/17 10:30 Hepatitis B core antibody measurement <0.07 <=0.50 Serum hepatitis B virus core antibody detection Non-Reactive NRG Serum herpes simplex virus 1 IgM antibody assay (units/volume) - 03/09/17 10: 30 Serum herpes simplex virus 1 IgM antibody assay (units/volume) < <1:10 Herpes simplex virus (HSV) type 1 antibody panel (IgG, IgM) - 03/09/17 10:30 Serum herpes simplex virus 1 IgG antibody assay (units/volume) 13.80 % 0.00-0.89 Serum herpes simplex virus 2 IgG antibody assay by immunoassay (units/volume) 0.11 % 0.00-0.89 Cerebrospinal fluid herpes simplex virus 1+2 IgM antibody assay (units/volume) 2.14 % 0.00-0.89 [id number] - 03/09/17 10:30 Serum herpes simplex virus (HSV) type 2 IgM antibody detection <1: 10 <1:10 [id number] - 03/09/17 10:30 [id number] Negative Negative Human immunodeficiency virus (HIV) type 1 and 2 antibody detection - 03/09/17 10:30 Serum HIV 1+2 antibody detection by immunoblot Non-Reactive Non-Reactive Serum hepatitis B virus surface antibody assay (units/volume) - 03/09/17 10:30 Serum hepatitis B virus surface antibody assay (units/volume) < % >=10.00 Serum hepatitis C virus antibody assay (units/volume) - 03/09/17 10:30 Serum hepatitis C virus antibody detection Non-Reactive Non-Reactive Serum protein electrophoresis - 03/09/17 10:30 Serum or plasma protein measurement (mass/volume) 7.5 % 6.6-8.2 Pathology consultation and report SEE PATH REPORT NRG [id number] - 03/09/17 10:30 Serum tissue transglutaminase IgA antibody detection 3 0 -19 Serum gliadin IgA antibody assay (units/volume) 7 % 0-19 Gliadin IgG antibody assay 1 % 0-19 Serum or plasma IgA measurement (mass/volume) 303 % 71- 263 Serum or plasma calcitriol measurement (mass/volume) - 03/09/17 10:30 Serum or plasma calcitriol measurement (mass/volume) 45.4 pg/mL 19.9-79.3 Serum cyclic citrullinated peptide antibody assay (units/volume) - 03/09/17 10: 30 Serum cyclic citrullinated peptide antibody assay (units/volume) 13.8 % 0.0-19.0 Serum Varicella zoster virus IgG and IgM panel - 03/09/17 10:30 Serum Varicella zoster virus IgM antibody assay by immunoassay (units/volume) < <1:10 Serum Varicella zoster virus IgG antibody detection Positive NEGATIVE Serum Lei extractable nuclear antibody assay (units/volume) - 03/09/17 10:30 [id number] Negative Negative Serum Lei extractable nuclear antigen (YANIV) antibody assay (units/volume) < U 0-19 Ribonucleic protein (REGISTERED NURSE PRACTITIONER) ab - 03/09/17 10:30 Ribonucleic protein antibody assay <20 0-19 HSV 1T2 PCR (BLOOD/FLUID) - 03/09/17 10:30 Herpes simplex virus (HSV) type 1 DNA detection by polymerase chain reaction Not Detected NOT DET Herpes simplex virus (HSV) type 2 DNA detection by PCR Not Detected NOT DET Lysozyme measurement - 03/09/17 10:30 Lysozyme measurement 8.4 ug/mL 5.0-11.0 [id number] - 03/09/17 10:30 Russel Davila virus DNA [#/volume] (viral load) in unspecified specimen by probe and target amplification method Not Detected <200 Adenovirus detection, CSF, PCR - 03/09/17 10:30 Adenovirus detection, CSF, PCR SEE FOOTNOTE NRG Serum or plasma rheumatoid factor measurement (units/volume) - 03/09/17 10:34 Serum or plasma rheumatoid factor measurement (units/volume) NEGATIVE NEGATIVE Comprehensive metabolic panel - 03/09/17 10:34 Serum or plasma sodium measurement (moles/volume) 138 mmol/L 135-145 Serum or plasma potassium measurement (moles/volume) 4.1 mmol/L 3.6-5.0 Serum or plasma chloride measurement (moles/volume) 105 mmol/L 98-107 Carbon dioxide 26 mmol/L 21-32 Serum or plasma anion gap determination (moles/volume) 7 mmol/L 5-14 Serum or plasma urea nitrogen measurement (mass/volume) 12 mg/dL 7-18 Serum or plasma creatinine measurement (mass/volume) 1.01 mg/dL 0.60-1.30 Serum or plasma urea nitrogen/creatinine mass ratio 12 NRG Serum or plasma creatinine measurement with calculation of estimated glomerular filtration rate > NRG Serum or plasma glucose measurement (mass/volume) 96 mg/dL 70-105 Serum or plasma calcium measurement (mass/volume) 9.9 mg/dL 8.5-10.1 Serum or plasma total bilirubin measurement (mass/volume) 0.9 mg/dL 0.1-1.0 Serum or plasma alkaline phosphatase measurement (enzymatic activity/volume) 96 U/L 40-136 Serum or plasma aspartate aminotransferase measurement (enzymatic activity/ volume) 21 U/L 5-34 Serum or plasma alanine aminotransferase measurement (enzymatic activity/volume ) 24 U/L 0-55 Serum or plasma protein measurement (mass/volume) 8.1 g/dL 6.4-8.2 Serum or plasma albumin measurement (mass/volume) 4.3 g/dL 3.2-4.5 Serum or plasma creatine kinase measurement (enzymatic activity/volume) - 03/09 10:34 Serum or plasma creatine kinase measurement (enzymatic activity/volume) 100 U/L 30-200 THYROID STIMULATING HORMONE - 03/09/17 10:34 THYROID STIMULATING HORMONE 0.93 u[iU]/mL 0.35-4.94 Serum or plasma C reactive protein measurement (mass/volume) - 03/09/17 10:34 Serum or plasma C reactive protein measurement (mass/volume) 0.57 mg /dL 0.00-0.50 * Reference lab test name - 03/09/17 10:34 * Reference lab test results MPO/VA-3 ANCA AB NRG * Reference lab test name - 03/09/17 10:34 * Reference lab test results Coxsackie B NRG * Reference lab test name - 03/09/17 10:34 * Reference lab test results Echovirus Ab [place] NRG * Reference lab test name - 03/09/17 10:34 * Reference lab test results Coxsackie A NRG * Reference lab test name - 03/09/17 10:34 * Reference lab test results Soluble IL 2 Rec NRG Complete urinalysis with reflex to culture - 03/09/17 10:45 Urine color determination YELLOW NRG Urine clarity determination CLEAR NRG Urine pH measurement by test strip 6.5 5-9 Specific gravity of urine by test strip 1.015 1.016- 1.022 Urine protein assay by test strip, semi-quantitative 2+ NEGATIVE Urine glucose detection by automated test strip NEGATIVE NEGATIVE Erythrocytes detection in urine sediment by light microscopy NEGATIVE NEGATIVE Urine ketones detection by automated test strip NEGATIVE NEGATIVE Urine nitrite detection by test strip NEGATIVE NEGATIVE Urine total bilirubin detection by test strip NEGATIVE NEGATIVE Urine urobilinogen measurement by automated test strip (mass/volume) 1 mg/dL NORMAL Urine leukocyte esterase detection by dipstick 1+ NEGATIVE Automated urine sediment erythrocyte count by microscopy (number/high power field) NONE NRG Automated urine sediment leukocyte count by microscopy (number/high power field ) [HPF] NRG Bacteria detection in urine sediment by light microscopy TRACE NRG Squamous epithelial cells detection in urine sediment by light microscopy 0-2 NRG Crystals detection in urine sediment by light microscopy NONE NRG Casts detection in urine sediment by light microscopy NONE NRG Mucus detection in urine sediment by light microscopy MODERATE NRG Complete urinalysis with reflex to culture NO NRG EKG - 05/06/17 22:16 EKG Complete PDM - PAIN MGMT (PROFILE 3 WITH CONFIRMATION) - 05/12/17 12:02 Prescribed Drug 1 Hydrocodone NRG Creatinine 234.2 mg/dL > or=20.0 pH 5.41 4.5 - 9.0 Oxidant NEGATIVE mcg/mL <200 Amphetamines NEGATIVE ng/mL <500 medMATCH Amphetamines CONSISTENT NRG Benzodiazepines POSITIVE ng/mL <100 Marijuana Metabolite NEGATIVE ng/mL <20 medMATCH Marijuana Metab CONSISTENT NRG Cocaine Metabolite NEGATIVE ng/mL <150 medMATCH Cocaine Metab CONSISTENT NRG Opiates POSITIVE ng/mL <100 Oxycodone POSITIVE ng/mL <100 COMMENT NRG Alphahydroxyalprazolam 723 ng/mL <25 medMATCH aOH alprazolam CONSISTENT NRG Alphahydroxymidazolam NEGATIVE ng/mL <50 medMATCH aOH midazolam CONSISTENT NRG Alphahydroxytriazolam NEGATIVE ng/mL <50 medMATCH aOH triazolam CONSISTENT NRG Aminoclonazepam NEGATIVE ng/mL <25 medMATCH Aminoclonazepam CONSISTENT NRG Hydroxyethylflurazepam NEGATIVE ng/mL <50 medMATCH OH,Et flurazepam CONSISTENT NRG Lorazepam NEGATIVE ng/mL <50 medMATCH Lorazepam CONSISTENT NRG Nordiazepam NEGATIVE ng/mL <50 medMATCH Nordiazepam CONSISTENT NRG Oxazepam NEGATIVE ng/mL <50 medMATCH Oxazepam CONSISTENT NRG Temazepam NEGATIVE ng/mL <50 medMATCH Temazepam CONSISTENT NRG Codeine NEGATIVE ng/mL <50 medMATCH Codeine CONSISTENT NRG Hydrocodone 1819 ng/mL <50 medMATCH Hydrocodone CONSISTENT NRG Hydromorphone 174 ng/mL <50 medMATCH Hydromorphone CONSISTENT NRG Morphine NEGATIVE ng/mL <50 medMATCH Morphine CONSISTENT NRG Norhydrocodone 2245 ng/mL <50 medMATCH Norhydrocodone CONSISTENT NRG Prescribed Drug 2 Oxycodone NRG Prescribed Drug 3 Xanax(TM) NRG Noroxycodone 9065 ng/mL <50 medMATCH Noroxycodone CONSISTENT NRG Oxycodone 8701 ng/mL <50 medMATCH Oxycodone CONSISTENT NRG Oxymorphone 1038 ng/mL <50 medMATCH Oxymorphone CONSISTENT NRG CBC w/MANUAL DIFF - 06/18/17 13:04 WHITE BLOOD CELL COUNT 5.6 Thousand/uL 3.8-10.8 RED BLOOD CELL COUNT 5.77 Million/uL 4.20-5.80 HEMOGLOBIN 16.0 g/dL 13.2-17.1 HEMATOCRIT 49.2 % 38.5-50.0 MCV 85.3 fL 80.0-100.0 MCH 27.7 pg 27.0-33.0 MCHC 32.5 g/dL 32.0-36.0 RDW 12.9 % 11.0-15.0 PLATELET COUNT 198 Thousand/uL 140-400 MPV 12.2 fL 7.5-12.5 DIFFERENTIAL, MANUAL - 06/18/17 13:04 ABSOLUTE NEUTROPHILS 3080 cells/uL [id number] ABSOLUTE MONOCYTES 448 cells/uL 200-950 ABSOLUTE EOSINOPHILS 0 cells/uL 15-500 ABSOLUTE BASOPHILS 56 cells/uL 0-200 NEUTROPHILS 55 % NRG LYMPHOCYTES 36 % NRG MONOCYTES 8 % NRG EOSINOPHILS 0 % NRG BASOPHILS 1 % NRG ABSOLUTE LYMPHOCYTES 2016 cells/uL 850-3900 PLATELET ESTIMATION ADEQUATE ADEQUATE CBC MORPHOLOGY NORMAL Complete blood count (CBC) with automated white blood cell (WBC) differential - 07/08/17 20:42 Blood leukocytes automated count (number/volume) 9.3 10*3/uL 4.3-11.0 Blood erythrocytes automated count (number/volume) 4.95 10*6/uL 4.35-5.85 Venous blood hemoglobin measurement (mass/volume) 14.9 g/dL 13.3-17.7 Blood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
--- NOTE | 2018-02-04 20:52 | Diagnostic Imaging Report ---
INDICATION: Cough and cold. TIME OF EXAMINATION: 02:31 p.m. COMPARISON: Correlation is made with prior study from 07/08/2017. FINDINGS: The heart size is stable. Dual-lead left subclavian cardiac pacemaker remains in place. No infiltrates are seen. The pulmonary vascularity is normal. No effusion or pneumothorax is detected. IMPRESSION: No acute cardiopulmonary process is detected. Dictated by: Dictated on workstation # [id number]
== END 2018-02-04 14:20 | disposition home or self-care (01) ==
LOC: EDUNIT# 13:36 → ER 13:37
DX: J40 Bronchitis, not specified as acute or chronic (principal); G47.30 Sleep apnea, unspecified; E78.00 Pure hypercholesterolemia, unspecified; I10 Essential (primary) hypertension; G43.909 Migraine, unspecified, not intractable, without status migrainosus; F41.9 Anxiety disorder, unspecified; F43.10 Post-traumatic stress disorder, unspecified; F91.3 Oppositional defiant disorder; M19.011 Primary osteoarthritis, right shoulder; Z92.21 Personal history of antineoplastic chemotherapy; Z85.828 Personal history of other malignant neoplasm of skin; Z88.0 Allergy status to penicillin; Z88.6 Allergy status to analgesic agent; Z87.891 Personal history of nicotine dependence; Z87.09 Personal history of other diseases of the respiratory system; Z95.0 Presence of cardiac pacemaker
CPT/HCPCS: 71046

== ENCOUNTER 2018-02-10 17:39 | Emergency (ER) | payer MEDICAID | END 2018-02-10 19:05 | disposition home or self-care (01) | LOC: ER 17:39 ==

== ENCOUNTER 2018-04-12 18:08 | Emergency (ER) | payer MEDICAID ==
[~2018-04-12] VITALS: Ht 170.2 cm; Wt 131.5 kg
[~2018-04-12 18:08] MED LIST changes: +AZIT250T12 PO; +D-ME118S33 PO; +D-ME473S38 PO; -GABA600T2 PO; +GBPN600T PO; +RT-ALBUINH IH
[2018-04-12] MEDS ORDERED: TR1C15 (18:37)
[2018-04-12] MEDS ORDERED: CLON0.1T (18:37)
--- NOTE | 2018-04-12 18:53 | Diagnostic Imaging Report ---
INDICATION: Injury with pain to third through fifth toes with swelling. FINDINGS: No fracture, dislocation or acute articular incongruity is identified. In particular, the third, fourth and fifth rays appeared unremarkable. IMPRESSION: No acute appearing abnormality. Dictated by: Dictated on workstation # [id number]
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
[2018-04-12 19:07] VITALS: BP 149/99
== END 2018-04-12 19:08 | disposition home or self-care (01) ==
LOC: EDUNIT# 18:08 → ER 18:11
DX: S90.122A Contusion of left lesser toe(s) without damage to nail, initial encounter (principal); G47.30 Sleep apnea, unspecified; E78.00 Pure hypercholesterolemia, unspecified; I10 Essential (primary) hypertension; G43.909 Migraine, unspecified, not intractable, without status migrainosus; F41.9 Anxiety disorder, unspecified; F43.10 Post-traumatic stress disorder, unspecified; F91.3 Oppositional defiant disorder; M19.011 Primary osteoarthritis, right shoulder; Z95.0 Presence of cardiac pacemaker; Z88.0 Allergy status to penicillin; Z85.828 Personal history of other malignant neoplasm of skin; Z92.21 Personal history of antineoplastic chemotherapy; Z88.2 Allergy status to sulfonamides; Z79.51 Long term (current) use of inhaled steroids; Z87.891 Personal history of nicotine dependence; Z98.890 Other specified postprocedural states; W22.03XA Walked into furniture, initial encounter
CPT/HCPCS: 73630

== ENCOUNTER → 2018-05-04 | Outpatient (CLI) | payer MEDICAID ==
[~2018-05-04] MED LIST changes: +CLON0.1T; +TR1C15
[2018-05-04 12:35] LABS: CALCIUM 9.9 MG/DL (8.5-10.1); CREATININE SERUM 1.32 MG/DL (0.60-1.30); POTASSIUM 3.7 MMOL/L (3.6-5.0)
== END ==
LOC: LAB 12:07
PROVIDERS: ATTEND Family Medicine
DX: I10 Essential (primary) hypertension (principal)
CPT/HCPCS: 36415; 80048; 84443

== ENCOUNTER → 2018-05-05 | Outpatient (CLI) | payer MEDICAID | LOC: LAB 11:49 | PROVIDERS: ATTEND Family Medicine | DX: I10 Essential (primary) hypertension (principal) ==

== ENCOUNTER 2018-06-02 13:35 | Emergency (ER) | payer MEDICAID ==
[~2018-06-02] VITALS: Ht 170.2 cm; Wt 136.1 kg
--- OUTSIDE RECORDS SUMMARY | 2018-06-02 13:45 | XMS REPORT | Clinical Summary ---
Author Author [facility] Organization [facility] Address Unknown Phone Unavailable Care Team Providers Care Tool Design Drafter Name Role Phone Yana Chadwick MD 21 Shreyas Puentes MD 3 Eden Hennessy MD PCP Source Comments Some departments are not documenting in the electronic medical record. If you do not see the information that you expected, contact Release of Information in the Health Information Management department at [phone] for further assistance in locating additional records.[facility] Allergies Comments Active Allergy Reactions Severity Noted Date Adhesive Tape (Rosins) BLISTERS High 11/23/2017 Aspirin RASH Medium 09/30/2016 Penicillins RASH Medium 09/30/2016 Venom-Wasp ANAPHYLAXIS High 09/30/2016 Medications End Date Status Medication Sig Dispensed Refills Start Date Active ALPRAZolam (XANAX) 1 mg TAKE ONE 0 tablet TABLET BY 7 MOUTH TWICE DAILY FOR ANXIETY Active atorvastatin (LIPITOR) 20 TAKE ONE 0 17/201 mg tablet TABLET BY 7 MOUTH ONCE DAILY Active HYDROcodone/acetaminophen TAKE 1 TABLET 0 (NORCO) 7.5/325 mg tablet BY MOUTH FOUR 7 TIMES DAILY Active ondansetron (ZOFRAN ODT) DISSOLVE ONE [...] 60 capsule 3 mg capsule capsule by 8 mouth twice daily. Active losartan(+) (COZAAR) 100 Take 1 tablet 90 tablet 3 mg tablet by mouth 8 daily. Active nitroglycerin (NITROSTAT) Place 0.4 mg 0 0.4 mg tablet under tongue every 5 minutes as needed for Chest Pain. Max of 3 tablets, call 911. Active methotrexate sodium Take six 72 tablet 0 (RHEUMATREX) 2.5 mg tablets by 9 tablet mouth every 7 days. Active spironolactone Take one 90 tablet 3 (ALDACTONE) 25 mg tablet tablet by 9 mouth daily. Take with food. Active metoprolol XL (TOPROL XL) Take one 90 tablet 0 200 mg extended release tablet by 9 tablet mouth daily. Active cloNIDine (CATAPRESS) 0.2 Take one 180 tablet 3 mg tablet tablet by 9 mouth three times daily. Active hydrALAZINE (APRESOLINE) Take one 360 tablet 3 25 mg tablet tablet by 9 mouth three times daily. Active ergocalciferol (VITAMIN Take one 12 capsule 0 D-2) 50,000 unit capsule capsule by 9 mouth every 7 days. Active Problems Problem Noted Date Class 3 obesity in adult 08/06/2017 Coxsackie viruses 04/28/2017 Sarcoma 04/28/2017 Tobacco abuse 04/28/2017 Myocarditis 02/26/2017 NSVT (nonsustained ventricular tachycardia) 02/26/2017 Cardiac device in situ 01/14/2017 Sinus node dysfunction 11/02/2016 Overview: Dr. Valdez S/p PPM implant- Advisa 02/20/16 PSVT (paroxysmal supraventricular tachycardia) 11/02/2016 Resistant hypertension 11/02/2016 MELI (obstructive sleep apnea) 11/02/2016 History of lipoma 09/30/2016 Pain of left thigh 09/30/2016 Pain of left lower leg 09/30/2016 Encounters Care Team Description Date Type Specialty Lexi Amezcua MD Pain of left lower leg (Primary Dx); Sarcoma (HCC); History of lipoma; Pain of left thigh 05/30/2018 Office Visit Rehabilitation Medicine Iwona Lira RN Resistant hypertension 05/30/2018 Orders Only Endocrinology Geoff Spivey DO History of lipoma; Sarcoma (HCC); Pain of left lower leg 05/27/2018 Procedure visit Neurology Shreyas Puentes MD 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) 05/26/2018 Office Visit Oncology Shreyas Puentes MD Arrived 05/26/2018 Hospital Radiology Encounter Iwona Lira RN Resistant hypertension; Hyperparathyroid bone disease (HCC) 05/25/2018 Orders Only Endocrinology Cat Valenzuela RN Lab Results 05/16/2018 Telephone Cardiology Glenys Kessler MD Essential (primary) hypertension 05/13/2018 Hospital Lab Encounter Glenys Kessler MD Resistant hypertension (Primary Dx); Hyperparathyroid bone disease (HCC); Sleep apnea, unspecified type 05/13/2018 Office Visit Endocrinology Glenys Kessler MD Critical Result 05/13/2018 Telephone Endocrinology Cat Valenzuela RN Lab Results 05/12/2018 Telephone Cardiology Cat Valenzuela RN Lab Results 05/09/2018 Telephone Cardiology Cat Valenzuela RN Lab Results 05/05/2018 Documentation Cardiology Sonal Mariscal Hypertension 05/03/2018 Telephone Cardiology Lexi Amezcua MD History of lipoma (Primary Dx); Sarcoma (HCC); Pain of left lower leg 05/02/2018 Office Visit Rehabilitation Medicine Roger Blue MD 04/28/2018 Hospital Cardiology Encounter Roger Blue MD Cardiac Eval (HTN) 04/28/2018 Office Visit Cardiology Cindy Swan RN 04/25/2018 Telephone Cardiology Alejandro West RN Hypertension 04/19/2018 Telephone Cardiology Saul Altamirano MD 04/12/2018 Hospital Cardiology Encounter Lexi Amezcua MD Chronic pain syndrome (Primary Dx); History of lipoma; Sarcoma (HCC) 04/11/2018 Office Visit Rehabilitation Medicine Saul Altamirano MD Cardiac Eval (myocarditis, sinis node dysfunction, essential hypertension) 04/07/2018 Office Visit Cardiology Saul Altamirano MD 04/07/2018 Hospital Cardiology Encounter Sawyer Fulton Sinus node dysfunction (HCC) (Primary Dx); Cardiac device in situ 04/07/2018 Orders Only Cardiology Chapin Soto MD 04/05/2018 Hospital Radiology Encounter Chapin Soto MD Complex regional pain syndrome type 1 of left lower extremity (Primary Dx) 04/05/2018 Procedure visit Anesthesia Pain Leander Tovar MD General Question 04/05/2018 Telephone Pulmonology Leander Tovar MD Worsening Symptoms 03/18/2018 Telephone Pulmonology Shama Gallardo LPN High risk medication use; Sarcoidosis 03/11/2018 Orders Only Pulmonology Lexi Amezcua MD 03/09/2018 Hospital Radiology Encounter Lexi Amezcua MD 03/09/2018 Hospital Radiology Encounter Chapin Soto MD Complex regional pain syndrome type 1 of left lower extremity (Primary Dx); Neuropathic pain 03/08/2018 Office Visit Anesthesia Pain Leander Tovar MD 03/06/2018 Refill Pulmonology from Last 3 Months Family History Medical [...] Smoker Cigarettes 0.25 Smokeless Tobacco: Never Used Tobacco Cessation: Ready to Quit: No; Counseling Given: No Alcohol Use Drinks/Week oz/Week Comments No Sex Assigned at Date Recorded Not on file Industry Job Start Date Occupation Not on file Not on file Not on file Travel End Travel History Travel Start No recent travel history available. Last Filed Vital Signs Time Taken Vital Sign Reading 05/30/2018 8:15 AM CDT Blood Pressure 150/84 05/30/2018 8:15 AM CDT Pulse 78 05/26/2018 10:48 AM CDT Temperature 36.7 C (98.1 F) 05/27/2018 2:08 PM CDT Respiratory Rate 17 05/30/2018 8:15 AM CDT Oxygen Saturation 97% - Inhaled Oxygen - Concentration 05/30/2018 8:15 AM CDT Weight 136.1 kg (300 lb) 05/30/2018 8:15 AM CDT Height 170.2 cm (5' 7") 05/30/2018 8:15 AM CDT Body Mass Index 46.99 Plan of Treatment Health Maintenance Due Date Last Done Comments PHYSICAL (COMPREHENSIVE) 1977 EXAM HIV SCREENING 1985 DTAP/TDAP VACCINES (1 - 1988 Tdap) INFLUENZA VACCINE 09/08/2018 Implants Device Identifier Shelf Expiration Date Model / Serial / Lot Implanted Type Area Manufactur er Pacemaker Pacemaker [id number] / [id number] / Medtronic-02/20/2016 Implanted: Qty: 1 on 02/20/2016 by Yumiko Pierre MD Procedures Comments Procedure Name Priority Date/Time Associated Diagnosis LA NERVE CONDUCTION Routine 05/27/2018 History of lipoma STUDIES 3-4 STUDIES 2:45 PM CDT Sarcoma (HCC) Pain of left lower leg LA NEEDLE EMG EA EXTREMTY Routine 05/27/2018 History of lipoma W/PARASPINL AREA COMPLETE 2:45 PM CDT Sarcoma (HCC) Pain of left lower leg CT LOWER EXTREM WO/W CONT Routine 05/26/2018 Atypical lipoma of soft LT 8:24 AM CDT tissue FREE CORTISOL-URINE 24 HR Routine 05/19/2018 Resistant hypertension CALCIUM-URINE 24HR Routine 05/19/2018 Resistant hypertension Hyperparathyroid bone disease (HCC) CORTISOL,SALIVA Routine 05/18/2018 Resistant hypertension CORTISOL,SALIVA Routine 05/17/2018 Resistant hypertension 11:00 PM CDT 25-OH VITAMIN D (D2 + D3) Routine 05/13/2018 Resistant hypertension 9:13 AM CDT Hyperparathyroid bone disease (HCC) BASIC METABOLIC PANEL Routine 05/13/2018 Resistant hypertension 9:13 AM CDT Hyperparathyroid bone disease (HCC) BASIC METABOLIC PANEL Routine 05/11/2018 Resistant hypertension THYROID STIMULATING Routine 05/04/2018 Resistant hypertension HORMONE-TSH BASIC METABOLIC PANEL Routine 05/04/2018 Resistant hypertension METANEPHRINES FRACT FREE Routine 04/28/2018 Essential hypertension PLASMA 4:53 PM CDT URIC ACID Routine 04/28/2018 Essential hypertension 4:53 PM CDT THYROID STIMULATING Routine 04/28/2018 Essential hypertension HORMONE-TSH 4:53 PM CDT RENIN-RANDOM Routine 04/28/2018 Essential hypertension 4:53 PM CDT PARATHYROID HORMONE Routine 04/28/2018 Essential hypertension 4:53 PM CDT CORTISOL,RANDOM Routine 04/28/2018 Essential hypertension 4:53 PM CDT COMPREHENSIVE METABOLIC Routine 04/28/2018 Essential hypertension PANEL 4:53 PM CDT CBC Routine 04/28/2018 Essential hypertension 4:53 PM CDT ALDOSTERONE-RANDOM Routine 04/28/2018 Essential hypertension 4:53 PM CDT PV RENAL ARTERY DUPLEX Routine 04/12/2018 Essential hypertension SCAN 2:06 PM SENIOR SOFTWARE DEVELOPER Sinus node dysfunction (HCC) NSVT (nonsustained ventricular tachycardia) (HCC) Bruit DEVICE EVALUATION - PPM Routine 04/07/2018 Other myocarditis, 9:25 AM SENIOR SOFTWARE DEVELOPER unspecified chronicity (HCC) Sinus node dysfunction (HCC) Essential hypertension ECG-SCAN 04/07/2018 12:00 AM SENIOR SOFTWARE DEVELOPER FLUORO GUIDANCE FOR SPINE Routine 04/05/2018 Pain INJ RAD 10:50 AM SENIOR SOFTWARE DEVELOPER LA INJECTION ANES Routine 04/05/2018 Complex regional pain LMBR/THRC PARAVERTBRL 10:00 AM SENIOR SOFTWARE DEVELOPER syndrome type 1 of left SYMPATHETIC lower extremity NM BONE SCAN WHOLEBODY Routine 03/09/2018 History of lipoma 2:52 PM SENIOR SOFTWARE DEVELOPER Sarcoma (HCC) Complex regional pain syndrome type 2 of left lower extremity NM BONE SPECT Routine 03/09/2018 History of lipoma 2:52 PM SENIOR SOFTWARE DEVELOPER Sarcoma (HCC) Complex regional pain syndrome type 2 of left lower extremity from Last 3 Months Results * SPINE EMG PROCEDURE (05/27/2018 2:45 PM CDT) Narrative Performed At OTHER OUTSIDE LAB Geoff Spivey DO 05/27/20183:10 PM Please refer to EMG report for study results.No separate note placed for procedure.Patient well tolerated the procedure and was sent home with no complications.RTC with Dr. Amezcua. Procedure Note Geoff Spivey DO - 05/27/2018 2:45 PM CDT Please refer to EMG report for study results. No separate note placed for procedure. Patient well tolerated the procedure and was sent home with no complications. RTC with Dr. Amezcua. 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 Soft tissue lesion is difficult to exclude, however no recurrent fatty tumor is identified. MRI without and with contrast could be helpful for further evaluation. 2.Chondrocalcinosis of the knee, compatible with CPPD. Approved by Francisco Campbell M.D. on 05/26/2018 9:42 AM By my electronic signature, I attest that I have personally reviewed the images for this examination and formulated the interpretations and opinions expressed in this report Finalized by Raymon Causey M.D. on 05/26/2018 3:26 PM. Dictated by Francisco Campbell M.D. on 05/26/2018 8:55 AM. Narrative Performed At Exam: CT LOWER EXTREM WO/W CONT LT [facility] RESULTS History: 47-year-old male, atypical lipoma soft tissue Comparison: CT left lower extremity June 03, 2017. Technique: Axial noncontrast images were obtained through the left lower extremity. Thin section images were reconstructed and utilized for reformatted images. Additional post processing was performed and 3-D images were reconstructed with horizontal and cephalocaudad rotation. Findings: Status post resection of atypical lipomatous tumor resection along the anterolateral thigh. Redemonstration of a thin fluid collection and soft tissue thickening in the subcutaneous soft tissues of the anterolateral thigh anterior to the rectus femoris and vastus lateralis muscles which measures 7.5 x 0.7 cm (series 3 image 473), previously 8.3 x 0.8 cm. An additional triangular shaped soft tissue or complex fluid deep to the skin incision has slightly increased in size measuring 9.1 cm craniocaudal by 2.4 cm AP by 3.2 cm transverse (series 5 image 119 and series 300 image 112), previously 9.1 cm craniocaudal by 2.1 cm AP by 1.6 cm transverse, when measured in similar fashion. This triangular shaped subcutaneous mass density which tracks to the skin has a slightly more nodular contour today, and could represent scarring however superimposed soft tissue lesion is possible. There is mild adjacent subcutaneous edema as well as additional subcutaneous edema in the left thigh. No significant lymphadenopathy. Chondrocalcinosis of the knee cartilage is again noted, compatible with CPPD. Unchanged moderate lateral subluxation of the patella. No acute fracture is identified. Procedure Note Interface, Radiant Results - 05/26/2018 3:29 PM CDT Exam: CT LOWER EXTREM WO/W CONT LT History: 47-year-old male, atypical lipoma soft tissue Comparison: CT left lower extremity June 03, 2017. Technique: Axial noncontrast images were obtained through the left lower extremity. Thin section images were reconstructed and utilized for reformatted images. Additional post processing was performed and 3-D images were reconstructed with horizontal and cephalocaudad rotation. Findings: Status post resection of atypical lipomatous tumor resection along the anterolateral thigh. Redemonstration of a thin fluid collection and soft tissue thickening in the subcutaneous soft tissues of the anterolateral thigh anterior to the rectus femoris and vastus lateralis muscles which measures 7.5 x 0.7 cm ( series 3 image 473), previously 8.3 x 0.8 cm. An additional triangular shaped soft tissue or complex fluid deep to the skin incision has slightly increased in size measuring 9.1 cm craniocaudal by 2.4 cm AP by 3.2 cm transverse (series 5 image 119 and series 300 image 112), previously 9.1 cm craniocaudal by 2.1 cm AP by 1.6 cm transverse, when measured in similar fashion. This triangular shaped subcutaneous mass density which tracks to the skin has a slightly more nodular contour today, and could represent scarring however superimposed soft tissue lesion is possible. There is mild adjacent subcutaneous edema as well as additional subcutaneous edema in the left thigh. No significant lymphadenopathy. Chondrocalcinosis of the knee cartilage is again noted, compatible with CPPD. Unchanged moderate lateral subluxation of the patella. No acute fracture is identified. IMPRESSION 1. 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 Soft tissue lesion is difficult to exclude, however no recurrent fatty tumor is identified. MRI without and with contrast could be helpful for further evaluation. 2. Chondrocalcinosis of the knee, compatible with CPPD. Approved by Francisco Campbell M.D. on 05/26/2018 9:42 AM By my electronic signature, I attest that I have personally reviewed the images for this examination and formulated the interpretations and opinions expressed in this report Finalized by Raymon Causey M.D. on 05/26/2018 3:26 PM. Dictated by Francisco Campbell M.D. on 05/26/2018 8:55 AM. Performing Organization Address City/State/Zipcode Phone Number [facility] RESULTS * FREE CORTISOL-URINE 24 HR (05/19/2018) Cortisol, Free 6 5 - 64 OTHER OUTSIDE Urine, Total LAB Specimen Urine - Urine Narrative Performed At Performing Organization Address City/State/Zipcode Phone Number OTHER OUTSIDE LAB * CALCIUM-URINE 24HR (05/19/2018) Calcium 24 Hr 53.9 100.0 - 300.0 OTHER OUTSIDE LAB Specimen Urine - Urine Narrative Performed At Performing Organization Address City/State/Zipcode Phone Number OTHER OUTSIDE LAB * CORTISOL,SALIVA (05/18/2018) Only the most recent of 2 results within the time period is included. Pathologist [facility] Cortisol, 0.018 0.010 - 0.090 MAIN LAB Sample 2 Specimen Saliva - Salivette Swab Narrative Performed At Performing Organization Address City/[facility]/Zipcode Phone Number [facility] [address] [place] [address] * 25-OH VITAMIN D (D2 + D3) (05/13/2018 9:13 AM CDT) Pathologist [facility] Vitamin 19.7 (L) 30 - 80 NG/ML MAIN LAB D(25-OH)Total Specimen Blood Performing Organization Address City/[facility] Phone Number MA[facility] LAB [address] [place] [address] * BASIC METABOLIC PANEL (05/13/2018 9:13 AM CDT) Only the most recent of 3 results within the time period is included. Pathologist [facility] Sodium 138 137 - 147 MMOL/L [facility] MAIN LAB Potassium 3.9 3.5 - 5.1 MMOL/L [facility] MAIN [facility] Chloride 105 98 - 110 MMOL/L [facility] MAIN [facility] CO2 29 21 - 30 MMOL/L [facility] MA[facility] Anion Gap 4 3 - 12 [facility] Glucose 91 70 - 100 MG/DL [facility] MAIN [facility] Blood Urea 17 7 - 25 MG/DL [facility] MAIN [facility] Nitrogen Creatinine 1.01 0.4 - 1.24 MG/DL [facility] MAIN [facility] Calcium 9.6 8.5 - 10.6 MG/DL [facility] MAIN [facility] eGFR Non >60 >60 mL/min [facility] MAIN [facility] Comment: [place] The eGFR is not validated for use in drug dosing adjustments.Continue to use estimated creatinine clearance per dosing reference text.Please contact the Clinical Pharmacist for questions. eGFR >60 >60 mL/min [facility] MAIN LAB [place] Comment: The eGFR is not validated for use in drug dosing adjustments.Continue to use estimated creatinine clearance per dosing reference text.Please contact the Clinical Pharmacist for questions. Specimen Blood Performing Organization Address [facility] Phone Number MAIN LAB [address] [place] [address] * THYROID STIMULATING HORMONE-TSH (05/04/2018) Only the most recent of 2 results within the time period is included. Pathologist [facility] TSH 1.06 MAIN LAB Specimen Blood - Blood Performing Organization Address [facility] Phone Number MAIN LAB [address] [place] [address] * CORTISOL,RANDOM (04/28/2018 4:53 PM CDT) Cortisol, 6.3 5.0 - 20.0 MCG/DL MAIN LAB Random Specimen Blood Performing Organization Address [facility] Phone Number MAIN LAB [address] [place] [address] * RENIN-RANDOM (04/28/2018 4:53 PM CDT) Pathologist [facility] Renin-Random 10 3 - 45 pg/mL MAIN LAB Comment: The renin value is a new "direct" assay corresponding to antigen concentration rather than renin activity. The normal ratio for aldosterone to renin is 0.1-3.7. A ratio of greater than 3.7 is suggestive of aldosteronism. Specimen Blood Performing Organization Address [facility] Phone Number MAIN LAB [address] [place] [address] * PARATHYROID HORMONE (04/28/2018 4:53 PM CDT) Pathologist [facility] PTH Hormone 160.2 (H) 10 - 65 PG/ML MAIN LAB Specimen Blood Performing Organization Address [facility] Phone Number MAIN LAB [address] [place] [address] * METANEPHRINES FRACT FREE PLASMA (04/28/2018 4:53 PM CDT) Pathologist [facility] Normetaphrine, 0.54 REFERENCE LAB Plasma Comment: Reference range: <0.90 Unit: nmol/L [facility] [employer], [facility] [place] [address] Metanephrine,Pl <0.20 REFERENCE LAB asma Reference range: <0.50 Unit: nmol/L ADDITIONAL INFORMATION This test was developed and its performance characteristics determined by [facility] in a manner consistent with CLIA requirements. This test has not been cleared or approved by the U.S. Food and Drug Administration. [facility], [address] [facility], [place] [address] Specimen Blood Performing Organization Address City/[facility] Phone Number REFERENCE LAB REFERENCE LAB See results for address. * ALDOSTERONE-RANDOM (04/28/2018 4:53 PM CDT) Pathologist [facility] Aldosterone, 13 3 - 24 ng/dL MAIN LAB Random Specimen Blood Performing Organization Address [facility] Phone Number MAIN LAB [address] [place] [address] * CBC (04/28/2018 4:53 PM CDT) Pathologist [facility] White Blood 8.8 4.5 - 11.0 K/UL [facility] MAIN LAB Cells RBC 5.29 4.4 - 5.5 M/UL [facility] MAIN LAB Hemoglobin 15.5 13.5 - 16.5 GM/DL [facility] MAIN LAB Hematocrit 46.4 40 - 50 % [facility] MAIN LAB MCV 87.8 80 - 100 FL [facility] MAIN LAB MCH 29.2 26 - 34 PG MAIN LAB MCHC 33.3 32.0 - 36.0 G/DL MAIN LAB RDW 14.2 11 - 15 % [facility] MAIN LAB Platelet Count 184 150 - 400 K/UL [facility] MAIN LAB MPV 11.3 (H) 7 - 11 FL MAIN LAB Specimen Blood Performing Organization Address [facility] Phone Number MAIN LAB [address] [place] [address] * URIC ACID (04/28/2018 4:53 PM CDT) Pathologist [facility] Uric Acid 6.0 4.0 - 8.0 MG/DL MAIN LAB Specimen Blood Performing Organization Address [facility] Phone Number MAIN LAB [address] [place] [address] * COMPREHENSIVE METABOLIC PANEL (04/28/2018 4:53 PM CDT) Pathologist [facility] Sodium 134 (L) 137 - 147 MMOL/L [facility] MAIN LAB Potassium 4.1 3.5 - 5.1 MMOL/L MAIN LAB Chloride 102 98 - 110 MMOL/L [facility] MAIN LAB Glucose 92 70 - 100 MG/DL [facility] MAIN LAB Blood Urea 19 7 - 25 MG/DL [facility] MAIN LAB Nitrogen Creatinine 1.03 0.4 - 1.24 MG/DL [facility] MAIN LAB Calcium 9.4 8.5 - 10.6 MG/DL [facility] MAIN LAB Total Protein 7.5 6.0 - 8.0 G/DL [facility] MAIN LAB Total Bilirubin 0.5 0.3 - 1.2 MG/DL [facility] MAIN LAB Albumin 4.2 3.5 - 5.0 G/DL [facility] MAIN LAB Alk Phosphatase 95 25 - 110 U/L [facility] MAIN LAB AST (SGOT) 18 7 - 40 U/L [facility] MAIN LAB CO2 27 21 - 30 MMOL/L [facility] MAIN LAB ALT (SGPT) 16 7 - 56 U/L [facility] MAIN LAB Anion Gap 5 3 - 12 [facility] MAIN LAB eGFR Non >60 >60 mL/min [facility] MAIN LAB Comment: [place] The eGFR is not validated for use in drug dosing adjustments.Continue to use estimated creatinine clearance per dosing reference text.Please contact the Clinical Pharmacist for questions. eGFR >60 >60 mL/min [facility] MAIN LAB [place] Comment: The eGFR is not validated for use in drug dosing adjustments.Continue to use estimated creatinine clearance per dosing reference text.Please contact the Clinical Pharmacist for questions. Specimen Blood Performing Organization Address City/State/Zipcode Phone Number [facility] [address] [place] [address] * PV RENAL ARTERY DUPLEX SCAN (04/12/2018 2:06 PM SENIOR SOFTWARE DEVELOPER) AORTIC PROXIMAL 0.6 m/s OTHER OUTSIDE VELOCITY LAB AORTIC MIDDLE 0.9 m/s OTHER OUTSIDE VELOCITY LAB AORTIC DISTAL 0.7 m/s OTHER OUTSIDE VELOCITY LAB PROX AORTIC AP 2.5 cm OTHER OUTSIDE LAB PROX AORTIC 2.5 cm OTHER OUTSIDE TRANS LAB MID AORTIC AP 2.4 cm OTHER OUTSIDE LAB MID AORTIC 2.4 cm OTHER OUTSIDE TRANS LAB DIST AORTIC AP 2.0 cm OTHER OUTSIDE LAB DIST AORTIC 2.0 cm OTHER OUTSIDE TRANS LAB RIGHT KIDNEY 10.30 cm OTHER OUTSIDE LENGTH LAB RIGHT KIDNEY 6.70 cm OTHER OUTSIDE WIDTH LAB LEFT KIDNEY 10.60 cm OTHER OUTSIDE LENGTH LAB LEFT KIDNEY 5.40 cm OTHER OUTSIDE WIDTH LAB RIGHT RENAL 0.76 m/s OTHER OUTSIDE ORIGIN SYS LAB RIGHT RENAL 1.19 m/s OTHER OUTSIDE PROX SYS LAB RIGHT RENAL MID 0.85 m/s OTHER OUTSIDE SYS LAB RIGHT RENAL 0.72 m/s OTHER OUTSIDE DIST SYS LAB RIGHT RENAL 0.32 m/s OTHER OUTSIDE ORIGIN FLOYD LAB RIGHT RENAL 0.50 m/s OTHER OUTSIDE PROX FLOYD LAB RIGHT RENAL MID 0.28 m/s OTHER OUTSIDE FLOYD LAB RIGHT RENAL 0.23 m/s OTHER OUTSIDE DIST [place]D LAB RIGHT RENAL 0.84 OTHER OUTSIDE ORIGIN RAR LAB RIGHT RENAL 1.32 OTHER OUTSIDE PROX RAR LAB RIGHT RENAL MID 0.94 OTHER OUTSIDE RAR LAB RIGHT RENAL 0.80 OTHER OUTSIDE DIST RAR LAB RIGHT RENAL 0.45 m/s OTHER OUTSIDE UPPER LAB PARENCHYMA MAX RIGHT RENAL 0.17 m/s OTHER OUTSIDE UPPER LAB PARENCHYMA MIN RIGHT RENAL 0.62 OTHER OUTSIDE UPPER LAB PARENCHYMA RI RIGHT RENAL 0.32 m/s OTHER OUTSIDE MIDDLE LAB PARENCHYMA MAX RIGHT RENAL 0.12 m/s OTHER OUTSIDE MIDDLE LAB PARENCHYMA MIN RIGHT RENAL 0.63 OTHER OUTSIDE MIDDLE LAB PARENCHYMA RI RIGHT RENAL 0.17 m/s OTHER OUTSIDE LOWER LAB PARENCHYMA MAX RIGHT RENAL 0.07 m/s OTHER OUTSIDE LOWER LAB PARENCHYMA MIN RIGHT RENAL 0.59 OTHER OUTSIDE LOWER LAB PARENCHYMA RI LEFT RENAL 0.49 m/s OTHER OUTSIDE ORIGIN SYS LAB LEFT RENAL PROX 0.54 m/s OTHER OUTSIDE SYS LAB LEFT RENAL MID 0.82 m/s OTHER OUTSIDE SYS LAB LEFT RENAL DIST 0.51 m/s OTHER OUTSIDE SYS LAB LEFT RENAL 0.16 m/s OTHER OUTSIDE ORIGIN FLOYD LAB LEFT RENAL PROX 0.16 m/s OTHER OUTSIDE [place]YD LAB LEFT RENAL 0.60 OTHER OUTSIDE MIDDLE LAB PARENCHYMA RI LEFT RENAL 0.32 m/s OTHER OUTSIDE LOWER LAB PARENCHYMA MAX LEFT RENAL 0.13 m/s OTHER OUTSIDE LOWER LAB PARENCHYMA MIN LEFT RENAL 0.59 OTHER OUTSIDE LOWER LAB PARENCHYMA RI Referring Eden Hennessy OTHER OUTSIDE Provider LAB LEFT RENAL 0.54 OTHER OUTSIDE ORIGIN RAR LAB LEFT RENAL PROX 0.60 OTHER OUTSIDE RAR LAB LEFT RENAL MID 0.91 OTHER OUTSIDE RAR LAB LEFT RENAL DIST 0.57 OTHER OUTSIDE RAR LAB LEFT RENAL MID 0.27 OTHER OUTSIDE [place] LAB LEFT RENAL DIST 0.18 OTHER OUTSIDE [place] LAB LEFT RENAL 0.27 m/s OTHER OUTSIDE UPPER LAB PARENCHYMA MAX LEFT RENAL 0.11 m/s OTHER OUTSIDE UPPER LAB PARENCHYMA MIN LEFT RENAL 0.59 OTHER OUTSIDE UPPER LAB PARENCHYMA RI LEFT RENAL 0.30 m/s OTHER OUTSIDE MIDDLE LAB PARENCHYMA MAX LEFT RENAL 0.12 m/s OTHER OUTSIDE MIDDLE LAB PARENCHYMA MIN Cardiology Charly Epiq OTHER OUTSIDE Ultrasound LAB Machine Narrative Performed At OTHER OUTSIDE LAB 1. Normal size abdominal aorta. 2. Normal sized kidneys bilaterally. 3. No high grade (>60%) stenosis is seen in bilateral renal arteries. 4. Normal renal resistive indices bilaterally. Performing Organization Address City/State/Zipcode Phone Number OTHER OUTSIDE LAB * DEVICE EVALUATION - PPM (04/07/2018 9:25 AM SENIOR SOFTWARE DEVELOPER) Generator [employer] OTHER OUTSIDE [employer] LAB Generator Model [id number] OTHER OUTSIDE # LAB Generator [id number] OTHER OUTSIDE Serial # LAB Generator 02/20/16 OTHER OUTSIDE Implnat Date LAB Generator Yes OTHER OUTSIDE Investigational LAB Device Mode aair/dddr OTHER OUTSIDE LAB Mode Switch On OTHER OUTSIDE Status LAB Lower Rate 60 OTHER OUTSIDE Limit LAB Mode Switch 171 OTHER OUTSIDE (bpm) LAB Atrial Lead [employer] OTHER OUTSIDE [employer] LAB Atrial Lead [id number] OTHER OUTSIDE Model # LAB Atrial Lead [id number] OTHER OUTSIDE Serial # LAB Atrial Lead 02/20/16 OTHER OUTSIDE Implant Date LAB Atrial Lead Yes OTHER OUTSIDE Investigational LAB RV Lead [employer] OTHER OUTSIDE [employer] LAB RV Lead Model # 5076-58 OTHER OUTSIDE LAB RV Lead Serial [id number] OTHER OUTSIDE # LAB RV Lead Implant 02/20/16 OTHER OUTSIDE Date LAB RV Lead Yes OTHER OUTSIDE Investigational LAB Device Type DDD-PM OTHER OUTSIDE LAB Next Remote 06/2018 OTHER OUTSIDE Check Due LAB High V Rate 162 OTHER OUTSIDE Detect LAB Pacemaker No OTHER OUTSIDE Dependant LAB Date of Last 04/07/18 OTHER OUTSIDE Programming LAB EP Device MAC OTHER OUTSIDE Followed By LAB Device [facility] OTHER OUTSIDE [place] [facility] Transmitter Compatible Known Diagnosed No OTHER OUTSIDE AFib LAB EP Device MPE OTHER OUTSIDE Followed by LAB Name Upper Rate 130 OTHER OUTSIDE Limit LAB Sensor Rate 130 OTHER OUTSIDE Limit LAB Pace AV Delay 300 OTHER OUTSIDE LAB Sense AV Delay 270 OTHER OUTSIDE LAB HF Patient No OTHER OUTSIDE LAB Remote Yes OTHER OUTSIDE Monitoring? LAB -VS% 65.4 OTHER OUTSIDE LAB -DONOR SUPPORT TECHNICIAN% <1 OTHER OUTSIDE LAB -VS% 34.5 OTHER OUTSIDE LAB AP-DONOR SUPPORT TECHNICIAN% <1 OTHER OUTSIDE LAB # Mode S. 0 OTHER OUTSIDE Events LAB Single PVSc 0.2/hr OTHER OUTSIDE LAB PVC runs <0.1/hr OTHER OUTSIDE LAB Battery Voltage 3.02 OTHER OUTSIDE LAB A Sense mv 1.1 OTHER OUTSIDE LAB A Capture V 0.75 OTHER OUTSIDE LAB A Capture ms 0.4 OTHER OUTSIDE LAB A Lead ohms 399 OTHER OUTSIDE LAB RV Sense mv 16.6 OTHER OUTSIDE LAB RV Capture V 0.75 OTHER OUTSIDE LAB RV Capture ms 0.4 OTHER OUTSIDE LAB RV Lead ohms 570 OTHER OUTSIDE LAB Counters Clrd Yes OTHER OUTSIDE LAB Device Function Yes OTHER OUTSIDE WNL LAB Device Yes OTHER OUTSIDE Reprogram LAB Ao Voltage 1.5A OTHER OUTSIDE LAB AO Pulse Width 0.4 OTHER OUTSIDE LAB RV Voltage 1.5A OTHER OUTSIDE LAB RV Pulse Width 0.4 OTHER OUTSIDE LAB # High V Events 4 SVT-ST OTHER OUTSIDE LAB Estimated 8 years avg OTHER OUTSIDE Longevity LAB Initial Rhythm ASVS NSR 77 bpm OTHER OUTSIDE LAB Programming? Yes OTHER OUTSIDE LAB Interrogation? Yes OTHER OUTSIDE LAB Remote Check? No OTHER OUTSIDE LAB Narrative Performed At OTHER OUTSIDE LAB [04/07/2018 9:27:38 AM - SAWYER FULTON] In office programming for dual chamber [employer]onic PPM. Device function: Appears normal. Presenting EGM shows ASVS NSR 77 bpm. Events noted: Atrial:0. Ventricular:4 SVT-ST episodes, longest 59 seconds. 167 to [address] Programming changes: RV amplitude 2.0V to 1.5V. A and RV safety margin 2.0V to 1.5V. RV minimum adapted amplitude 2.0V to 1.5V. 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 Sarah Henry flagged to enroll in [facility]. Reviewed with MPE in clinic and routed check for cosign. Performing Organization Address City/State/Zipcode Phone Number OTHER OUTSIDE LAB * ECG-SCAN (04/07/2018 12:00 AM SENIOR SOFTWARE DEVELOPER) Narrative Performed At Ordered by an unspecified provider. * FLUORO GUIDANCE FOR SPINE INJ RAD (04/05/2018 10:50 AM SENIOR SOFTWARE DEVELOPER) Narrative Performed At This order has been auto finalized and does not contain a result. [facility] Performing Organization Address City/State/Zipcode Phone Number [facility] * Nerve Block (04/05/2018 10:00 AM SENIOR SOFTWARE DEVELOPER) Narrative Performed At Chapin Soto MD 04/05/20184:30 PM OTHER OUTSIDE LAB Nerve Block Nerve: lumbar sympathetic Laterality: left Consent: Consent obtained: verbal and written Consent given by: patient Alternatives discussed: alternative treatment [place] Protocol: Relevant documents: relevant documents present and verified Test results: test results available and properly labeled Imaging studies: imaging studies available Required items: required blood products, implants, devices, and special equipment available Site marked: the operative site was marked Time out: Immediately prior to procedure a "time out" was called to verify the correct patient, procedure, equipment, landing support specialist and site/side marked as required Procedures Details: Prep: 2% chlorhexidine Patient position: prone Guidance: fluoroscopy Medications administered: 8 mL bupivacaine PF 0.25 % Outcome: Pain improved Performing Organization Address City/State/Zipcode Phone Number OTHER OUTSIDE LAB * NM BONE SPECT (03/09/2018 2:52 PM SENIOR SOFTWARE DEVELOPER) Impressions Performed At 1. No scintigraphic evidence of regional pain syndrome primarily involving the [facility] left thigh and leg. 2. Mild hyperemia on blood pool images and mild increased tracer uptake on delayed images about the left knee, which may be due to altered weightbearing. Subacute arthropathy is less likely. 3. Mild tracer uptake associated with subcutaneous soft tissue stranding within the left anterior thigh, not significantly changed since CT June 03, 2017, likely due to postsurgical inflammatory changes. Approved by Jarrod Ybarra M.D. on 03/09/2018 3:42 PM By my electronic signature, I attest that I have personally reviewed the images for this examination and formulated the interpretations and opinions expressed in this report Finalized by Merlin Dumont M.D. on 03/09/2018 3:53 PM. Dictated by Jarrod Ybarra M.D. on 03/09/2018 3:10 PM. Narrative Performed At BONE SCINTIGRAPHY (THREE-PHASE) [facility] Clinical indication: 47-year-old male, left lower extremity pain status post lipoma resection. Concern for complex regional pain syndrome. Radiopharmaceutical: 26.5 mCi Tc-99m MDP i.v. Technique: Three-phase examination of the bilateral lower extremities was performed consisting of radionuclide angiography, immediate postinjection, and delayed images. SPECT-CT was performed of the left thigh. Comparison: CT left lower extremity June 03, 2017.. FINDINGS: Blood flow images show symmetric perfusion to the lower extremities. Blood pool images show mild hyperemia about the left knee joint. No significant hyperemia seen involving the ankle or feet. Delayed planar images demonstrate mild tracer uptake within the soft tissues anterior to the left thigh. Mild asymmetric tracer activity about the knee joint, greater on the left. Degenerative changes are seen within the shoulders , hips, ankles, and feet. No significant asymmetric tracer uptake is seen within the ankles and feet. SPECT-CT images redemonstrate soft tissue thickening along the anterior fascia of the thigh. There is soft tissue stranding superficial to this with tract extending to the skin surface, unchanged in configuration since prior CT June 03, 2017. There is mild associated tracer uptake. 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 Mild asymmetric tracer uptake involving the medial and lateral femoral condyles, greater on the left. Procedure Note Interface, Radiant Results - 03/09/2018 3:56 PM SENIOR SOFTWARE DEVELOPER BONE SCINTIGRAPHY (THREE-PHASE) Clinical indication: 47-year-old male, left lower extremity pain status post lipoma resection. Concern for complex regional pain syndrome. Radiopharmaceutical: 26.5 mCi Tc-99m MDP i.v. Technique: Three-phase examination of the bilateral lower extremities was performed consisting of radionuclide angiography, immediate postinjection, and delayed images. SPECT-CT was performed of the left thigh. Comparison: CT left lower extremity June 03, 2017.. FINDINGS: Blood flow images show symmetric perfusion to the lower extremities. Blood pool images show mild hyperemia about the left knee joint. No significant hyperemia seen involving the ankle or feet. Delayed planar images demonstrate mild tracer uptake within the soft tissues anterior to the left thigh. Mild asymmetric tracer activity about the knee joint , greater on the left. Degenerative changes are seen within the shoulders, hips , ankles, and feet. No significant asymmetric tracer uptake is seen within the ankles and feet. SPECT-CT images redemonstrate soft tissue thickening along the anterior fascia of the thigh. There is soft tissue stranding superficial to this with tract extending to the skin surface, unchanged in configuration since prior CT June 03, 2017. There is mild associated tracer uptake. 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 Mild asymmetric tracer uptake involving the medial and lateral femoral condyles, greater on the left. IMPRESSION 1. No scintigraphic evidence of regional pain syndrome primarily involving the left thigh and leg. 2. Mild hyperemia on blood pool images and mild increased tracer uptake on delayed images about the left knee, which may be due to altered weightbearing. Subacute arthropathy is less likely. 3. Mild tracer uptake associated with subcutaneous soft tissue stranding within the left anterior thigh, not significantly changed since CT June 03, 2017, likely due to postsurgical inflammatory changes. Approved by Jarrod Ybarra M.D. on 03/09/2018 3:42 PM By my electronic signature, I attest that I have personally reviewed the images for this examination and formulated the interpretations and opinions expressed in this report Finalized by Merlin Dumont M.D. on 03/09/2018 3:53 PM. Dictated by Jarrod Ybarra M.D. on 03/09/2018 3:10 PM. Performing Organization Address City/State/Zipcode Phone Number [facility] * NM BONE SCAN WHOLEBODY (03/09/2018 2:52 PM SENIOR SOFTWARE DEVELOPER) Impressions Performed At 1. No scintigraphic evidence of regional pain syndrome primarily involving the [facility] left thigh and leg. 2. Mild hyperemia on blood pool images and mild increased tracer uptake on delayed images about the left knee, which may be due to altered weightbearing. Subacute arthropathy is less likely. 3. Mild tracer uptake associated with subcutaneous soft tissue stranding within the left anterior thigh, not significantly changed since CT June 03, 2017, likely due to postsurgical inflammatory changes. Approved by Jarrod Ybarra M.D. on 03/09/2018 3:42 PM By my electronic signature, I attest that I have personally reviewed the images for this examination and formulated the interpretations and opinions expressed in this report Finalized by Merlin Dumont M.D. on 03/09/2018 3:53 PM. Dictated by Jarrod Ybarra M.D. on 03/09/2018 3:10 PM. Narrative Performed At BONE SCINTIGRAPHY (THREE-PHASE) [facility] Clinical indication: 47-year-old male, left lower extremity pain status post lipoma resection. Concern for complex regional pain syndrome. Radiopharmaceutical: 26.5 mCi Tc-99m MDP i.v. Technique: Three-phase examination of the bilateral lower extremities was performed consisting of radionuclide angiography, immediate postinjection, and delayed images. SPECT-CT was performed of the left thigh. Comparison: CT left lower extremity June 03, 2017.. FINDINGS: Blood flow images show symmetric perfusion to the lower extremities. Blood pool images show mild hyperemia about the left knee joint. No significant hyperemia seen involving the ankle or feet. Delayed planar images demonstrate mild tracer uptake within the soft tissues anterior to the left thigh. Mild asymmetric tracer activity about the knee joint, greater on the left. Degenerative changes are seen within the shoulders , hips, ankles, and feet. No significant asymmetric tracer uptake is seen within the ankles and feet. SPECT-CT images redemonstrate soft tissue thickening along the anterior fascia of the thigh. There is soft tissue stranding superficial to this with tract extending to the skin surface, unchanged in configuration since prior CT June 03, 2017. There is mild associated tracer uptake. 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 Mild asymmetric tracer uptake involving the medial and lateral femoral condyles, greater on the left. Procedure Note Interface, Radiant Results - 03/09/2018 3:56 PM SENIOR SOFTWARE DEVELOPER BONE SCINTIGRAPHY (THREE-PHASE) Clinical indication: 47-year-old male, left lower extremity pain status post lipoma resection. Concern for complex regional pain syndrome. Radiopharmaceutical: 26.5 mCi Tc-99m MDP i.v. Technique: Three-phase examination of the bilateral lower extremities was performed consisting of radionuclide angiography, immediate postinjection, and delayed images. SPECT-CT was performed of the left thigh. Comparison: CT left lower extremity June 03, 2017.. FINDINGS: Blood flow images show symmetric perfusion to the lower extremities. Blood pool images show mild hyperemia about the left knee joint. No significant hyperemia seen involving the ankle or feet. Delayed planar images demonstrate mild tracer uptake within the soft tissues anterior to the left thigh. Mild asymmetric tracer activity about the knee joint , greater on the left. Degenerative changes are seen within the shoulders, hips , ankles, and feet. No significant asymmetric tracer uptake is seen within the ankles and feet. SPECT-CT images redemonstrate soft tissue thickening along the anterior fascia of the thigh. There is soft tissue stranding superficial to this with tract extending to the skin surface, unchanged in configuration since prior CT June 03, 2017. There is mild associated tracer uptake. 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 Mild asymmetric tracer uptake involving the medial and lateral femoral condyles, greater on the left. IMPRESSION 1. No scintigraphic evidence of regional pain syndrome primarily involving the left thigh and leg. 2. Mild hyperemia on blood pool images and mild increased tracer uptake on delayed images about the left knee, which may be due to altered weightbearing. Subacute arthropathy is less likely. 3. Mild tracer uptake associated with subcutaneous soft tissue stranding within the left anterior thigh, not significantly changed since CT June 03, 2017, likely due to postsurgical inflammatory changes. Approved by Jarrod Ybarra M.D. on 03/09/2018 3:42 PM By my electronic signature, I attest that I have personally reviewed the images for this examination and formulated the interpretations and opinions expressed in this report Finalized by Merlin Dumont M.D. on 03/09/2018 3:53 PM. Dictated by Jarrod Ybarra M.D. on 03/09/2018 3:10 PM. Performing Organization Address City/State/Zipcode Phone Number [facility] from Last 3 Months Insurance Type Payer Benefit Subscriber ID Effective Phone Address Plan / Dates Group Medicaid [employer] [facility] xxxxxxxxxxx 2009- STATE Present HEALTH (Home) [place] [address] Advance Directives Patient has advance care planning documents on file. For more information, please contact: [facility] [address] [place] [address]
--- OUTSIDE RECORDS SUMMARY | 2018-06-02 13:45 | XMS REPORT | Encounter Summary ---
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 CT LOWER EXTREM WO/W CONT LT * Radiology Services Referred By Contact Referred To Contact Status Reason Specialty Diagnoses / [place] [address] [facility] [address] [place] [address] [address] [place] [address] Authorized Radiology Diagnoses 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 CT LOWER EXTREM WO/W CONT LT Reason for Visit * Radiology Services Referred By Contact Referred To Contact Status Reason Specialty Diagnoses / [place] [address] [facility] [address] [place] [address] [address] [place] [address] Authorized Radiology Diagnoses 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 CT LOWER EXTREM WO/W CONT LT Encounter Details Care Team Description Date Type [place] [address] [facility] Office Bld [address] [place], [place] [address] Arrived 05/26/2018 [facility] [address] [place], [place] [address] Social History Date Tobacco Use Types Packs/Day Years Used Quit: 10/18/2016 Current Every Day Smoker Cigarettes 0.25 Smokeless Tobacco: Never Used Alcohol Use Drinks/Week oz/Week Comments No Sex Assigned at Date Recorded Not on file Industry Job Start Date Occupation Not on file Not on file Not on file Travel End Travel History Travel Start No recent travel history available. documented as of this encounter Functional Status Date of Assessment Functional Status Response 05/26/2018 Does the patient have a hearing impairment: No 05/26/2018 Does the patient have a visual impairment: No 05/26/2018 Does the patient have impaired ambulation: Yes 05/26/2018 Does the patient have an activity of daily living No (ADL) impairment: 05/26/2018 Does the patient have an instrumental activity of No daily living (IADL) impairment: Date of Assessment Cognitive Status Response 05/26/2018 Does the patient have a cognitive impairment: No documented as of this encounter Medications at Time of Discharge Start Date End Date Medication Sig Dispensed Refills 09/11/2016 ALPRAZolam (XANAX) 1 mg TAKE ONE 0 tablet TABLET BY MOUTH TWICE DAILY FOR ANXIETY 06/24/2016 atorvastatin (LIPITOR) 20 TAKE ONE 0 mg tablet TABLET BY MOUTH ONCE DAILY 05/03/2018 cloNIDine (CATAPRESS) 0.2 Take one 180 tablet 3 mg tablet tablet by mouth three times daily. diltiazem CD (CARDIZEM Take 300 mg 0 CD) 300 mg capsule by mouth every morning. EPINEPHrine(+) (EPIPEN) 1 Inject 0.3 mg 0 mg/mL injection pen into the (2-Pack) muscle once as needed. Inject 0.3 mg (1 Pen) into thigh if needed for anaphylactic reaction. May repeat in 5-15 minutes if needed. 05/13/2018 ergocalciferol (VITAMIN Take one 12 capsule 0 D-2) 50,000 unit capsule capsule by mouth every 7 days. 05/03/2018 hydrALAZINE (APRESOLINE) Take one 360 tablet 3 25 mg tablet tablet by mouth three times daily. 09/11/2016 HYDROcodone/acetaminophen TAKE 1 TABLET 0 (NORCO) 7.5/325 mg tablet BY MOUTH FOUR TIMES DAILY 09/03/2017 losartan(+) (COZAAR) 100 Take 1 tablet 90 tablet 3 mg tablet by mouth daily. 03/10/2018 methotrexate sodium Take six 72 tablet 0 (RHEUMATREX) 2.5 mg tablets by tablet mouth every 7 days. 04/28/2018 metoprolol XL (TOPROL XL) Take one 90 tablet 0 200 mg extended release tablet by tablet mouth daily. nitroglycerin (NITROSTAT) Place 0.4 mg 0 0.4 mg tablet under tongue every 5 minutes as needed for Chest Pain. Max of 3 tablets, call 911. 09/21/2016 ondansetron (ZOFRAN ODT) DISSOLVE ONE 0 4 mg rapid dissolve TABLET BY tablet MOUTH EVERY 8 HOURS NEEDED 08/25/2017 pregabalin (LYRICA) 150 Take 1 60 capsule 3 mg capsule capsule by mouth twice daily. 04/28/2018 spironolactone Take one 90 tablet 3 (ALDACTONE) 25 mg tablet tablet by mouth daily. Take with food. 08/07/2016 topiramate (TOPAMAX) 100 TAKE ONE 1 mg tablet TABLET BY MOUTH TWICE DAILY documented as of this encounter Plan of Treatment Not on filedocumented as of this encounter Procedures Comments Procedure Name Priority Date/Time Associated Diagnosis CT LOWER EXTREM WO/W CONT Routine 05/26/2018 Atypical lipoma of soft LT 8:24 AM CDT tissue documented in this encounter Results * CT LOWER EXTREM WO/W CONT LT [...] Address City/State/Zipcode Phone Number [facility] documented in this encounter Visit Diagnoses Diagnosis Atypical lipoma of soft tissue Lipoma of unspecified site documented in this encounter Administered Medications Action Date Dose Rate Site Medication Order MAR Action 05/26/2018 8:19 AM CDT 100 mL iohexol (OMNIPAQUE-350) 350 mg/mL Given injection 100 mL 100 mL, Intravenous, ONCE, 1 dose, Katrin 05/26/18 at 0830, NOTE: This is a HIGH ALERT Medication., 05/26/2018 8:19 AM CDT 50 mL sodium chloride PF 0.9% injection 50 mL Given 50 mL, Intravenous, ONCE, 1 dose, Katrin 05/26/18 at 0830, DO NOT SEND this medication unless it is requested. This med is usually available in floor stock., Intra-procedure (IR) documented in this encounter
--- OUTSIDE RECORDS SUMMARY | 2018-06-02 13:45 | XMS REPORT | Encounter Summary ---
Author Author [facility] Organization [facility] Address Unknown Phone Unavailable Care Team Providers Care Accountancy Professor Name Role Phone Yana Chadwick MD 21 Shreyas Puentes MD 3 Eden Hennessy MD PCP Encounter Details Care Team Description Date Type Department Iwona Lira RN Resistant hypertension; Hyperparathyroid bone disease (HCC) 05/25/2018 Orders Only [facility] [address] [facility] [place] [address] [place] [address] Social History Date Tobacco Use Types Packs/Day [...] Status Date of Assessment Functional Status Response 05/02/2018 Does the patient have a hearing impairment: No 05/02/2018 Does the patient have a visual impairment: No 05/02/2018 Does the patient have impaired ambulation: Yes 05/02/2018 Does the patient have an activity of daily living No (ADL) impairment: 03/08/2018 Does the patient have an instrumental activity of No daily living (IADL) impairment: Date of Assessment Cognitive Status Response 05/02/2018 Does the patient have a cognitive impairment: No documented as of this encounter Plan of Treatment Not on filedocumented as of this encounter Procedures Comments Procedure Name Priority Date/Time Associated Diagnosis FREE CORTISOL-URINE 24 HR Routine 05/19/2018 Resistant hypertension CALCIUM-URINE 24HR Routine 05/19/2018 Resistant hypertension Hyperparathyroid bone disease (HCC) documented in this encounter Results * FREE CORTISOL-URINE 24 HR (05/19/2018) Cortisol, Free 6 5 - 64 OTHER OUTSIDE Urine, Total LAB Specimen Urine - Urine Narrative Performed At Performing Organization Address City/State/Zipcode Phone Number OTHER OUTSIDE LAB * CALCIUM-URINE 24HR (05/19/2018) Calcium 24 Hr 53.9 100.0 - 300.0 OTHER OUTSIDE LAB Specimen Urine - Urine Narrative Performed At Performing Organization Address City/State[facility] Phone Number OTHER OUTSIDE LAB documented in this encounter Visit Diagnoses Diagnosis Resistant hypertension Hyperparathyroid bone disease (HCC) Primary hyperparathyroidism documented in this encounter
--- OUTSIDE RECORDS SUMMARY | 2018-06-02 13:45 | XMS REPORT | Encounter Summary ---
Author Author [facility] Organization [facility] Address Unknown Phone Unavailable Care Team Providers Care Day Porter Name Role Phone Yana Chadwick MD 21 Shreyas Puentes MD 3 Eden Hennessy MD PCP Reason for Visit * Reason Comments Lab Results Encounter Details Care Team Description Date Type Department Cat Valenzuela RN Lab Results 05/16/2018 Telephone [facility] [address] [facility] [place] [address] Social History Date Tobacco Use Types Packs/Day [...] impairment: No documented as of this encounter Miscellaneous Notes * Telephone Encounter - Cat Valenzuela RN - 05/16/2018 9:04 AM CDT Called and spoke with patient regarding recommendations from Dr. Blue. Patient verbalizes understanding and will recheck labs in one month. * Telephone Encounter - Cat Valenzuela RN - 05/16/2018 8:56 AM CDT Roger Blue MD Polley, Kaitlyn, RN I am okay with these labs. Recheck in 1 month. * Telephone Encounter - Cat Valenzuela RN - 05/16/2018 8:56 AM CDT ----- Message from Roger Blue MD sent at 05/13/2018 7:04 PM CDT ----- The patient's labs are overall okay except PTH is high. He has seen endocrinology yesterday and they think it is because of low vitamin D which they are replacing. I think we will continue current medications and he needs to send us his blood pressure log and also see pulmonary for obstructive sleep apnea. Thanks documented in this encounter Plan of Treatment Order Schedule Name Priority Associated Diagnoses Expected: 06/15/2018 (Approximate), Expires: 05/16/2019 BASIC METABOLIC PANEL Routine Resistant hypertension documented as of this encounter Visit Diagnoses Diagnosis Resistant hypertension - Primary documented in this encounter
--- OUTSIDE RECORDS SUMMARY | 2018-06-02 13:45 | XMS REPORT | Encounter Summary ---
Author Author [facility] Organization [facility] Address Unknown Phone Unavailable Care Team Providers Care Supervisor Special Effects Name Role Phone Yana Chadwick MD 21 Shreyas Puentes MD 3 Eden Hennessy MD PCP Encounter Details Care Team Description Date Type Department Iwona Lira RN Resistant hypertension 05/30/2018 Orders Only [facility] [address] [place] [phone] Social History Date Tobacco Use Types Packs/Day [...] Comments Procedure Name Priority Date/Time Associated Diagnosis CORTISOL,SALIVA Routine 05/18/2018 Resistant hypertension CORTISOL,SALIVA Routine 05/17/2018 Resistant hypertension 11:00 PM CDT documented in this encounter Results * CORTISOL,SALIVA (05/18/2018) Cortisol, 0.018 0.010 - 0.090 [facility] MAIN LAB Sample 2 Specimen Saliva - Salivette Swab Narrative Performed At Performing Organization Address [facility] Phone Number MAIN LAB [address] [place] [address] * CORTISOL,SALIVA (05/17/2018 11:00 PM CDT) Cortisol, 0.054 0.010 - 0.090 [facility] MAIN LAB Sample 1 Specimen Saliva - Salivette Swab Narrative Performed At Performing Organization Address [facility] Phone Number MAIN LAB [address] [place] [address] documented in this encounter Visit Diagnoses Diagnosis Resistant hypertension documented in this encounter
--- OUTSIDE RECORDS SUMMARY | 2018-06-02 13:45 | XMS REPORT | Encounter Summary ---
Author Author [facility] Organization [facility] Address Unknown Phone Unavailable Care Team Providers Care Kiss Setter Hand Name Role Phone Yana Chadwick MD 21 Shreyas Puentes MD 3 Eden Hennessy MD PCP Reason for Referral * Pain Authorization (Routine) Referred By Contact Referred To Contact Status Reason Specialty Diagnoses / [place] [address] [employer] [address] [place] [address] Geoff Spivey DO [address] [facility] [place] [address] Closed Neurology Diagnoses History of lipoma Sarcoma (HCC) Pain of left lower leg P rocedures SPINE EMG PROCEDURE Reason for Visit * Reason Comments Pain * Pain Authorization (Routine) Referred By Contact Referred To Contact Status Reason Specialty Diagnoses / [place] [address] [employer] [address] [place] [address] Geoff Spivey DO [address] [facility] [place] [address] Closed Neurology Diagnoses History of lipoma Sarcoma (HCC) Pain of left lower leg P rocedures SPINE EMG PROCEDURE Encounter Details Care Team Description Date Type Department Geoff Spivey DO [address] [facility] [place] [address] [phone] History of lipoma; Sarcoma (HCC); Pain of left lower leg 05/27/2018 Procedure visit [facility] [address] [address] Social History Date Tobacco Use Types Packs/Day [...] history available. documented as of this encounter Last Filed Vital Signs Time Taken Vital Sign Reading 05/27/2018 2:08 PM CDT Blood Pressure 175/114 05/27/2018 2:08 PM CDT Pulse 75 - Temperature - 05/27/2018 2:08 PM CDT Respiratory Rate 17 05/27/2018 2:08 PM CDT Oxygen Saturation 97% - Inhaled Oxygen - Concentration 05/27/2018 2:08 PM CDT Weight 133.8 kg (295 lb) 05/27/2018 2:08 PM CDT Height 170.2 cm (5' 7") 05/27/2018 2:08 PM CDT Body Mass Index 46.2 documented in this encounter Functional Status Date of [...] impairment: No documented as of this encounter Procedure Notes * Geoff Spivey DO - 05/27/2018 2:45 PM CDT Associated Order(s): SPINE EMG PROCEDURE Procedure(s): [place] NERVE CONDUCTION STUDIES 3-4 STUDIES; [place] NEEDLE EMG EA EXTREMTY W/PARASPINL AREA COMPLETE Pre-Procedure Diagnose(s): History of lipoma; Sarcoma (HCC); Pain of left lower leg Post-Procedure Diagnose(s): Pain of left lower leg Please refer to EMG report for study results. No separate note placed for procedure. Patient well tolerated the procedure and was sent home with no complications. RTC with Dr. Amezcua. documented in this encounter Plan of Treatment Not on filedocumented as of this encounter Procedures Comments Procedure Name Priority Date/Time Associated Diagnosis [place] NERVE CONDUCTION Routine 05/27/2018 History of lipoma STUDIES 3-4 STUDIES 2:45 PM CDT Sarcoma (HCC) Pain of left lower leg [place] NEEDLE EMG EA EXTREMTY Routine 05/27/2018 History of lipoma W/PARASPINL AREA COMPLETE 2:45 PM CDT Sarcoma (HCC) Pain of left lower leg documented in this encounter Results * SPINE EMG PROCEDURE (05/27/2018 2:45 [...] Address City/State/Zipcode Phone Number OTHER OUTSIDE LAB documented in this encounter Visit Diagnoses Diagnosis History of lipoma Personal history of other specified diseases 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
--- OUTSIDE RECORDS SUMMARY | 2018-06-02 13:45 | XMS REPORT | Encounter Summary ---
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 P rocedures CT LOWER EXTREM WO CONT LEFT Reason for Visit * Reason Comments Other 1 year FU/CT Encounter Details Care Team Description Date [place] [address] [facility] [address] [place], [place] [phone] 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) 05/26/2018 Office Visit [facility] [address] [place], [place] [address] Social History Date Tobacco Use Types Packs/Day [...] Vital Signs Time Taken Vital Sign Reading 05/26/2018 10:48 AM CDT Blood Pressure 156/88 05/26/2018 10:48 AM CDT Pulse 86 05/26/2018 10:48 AM CDT Temperature 36.7 C (98.1 F) 05/26/2018 10:48 AM CDT Respiratory Rate 22 05/26/2018 10:48 AM CDT Oxygen Saturation 100% - Inhaled Oxygen - Concentration 05/26/2018 10:48 AM CDT Weight 136.1 kg (300 lb) 05/26/2018 10:48 AM CDT Height 170.2 cm (5' 7") 05/26/2018 10:48 AM CDT Body Mass Index 46.99 documented in this encounter Functional Status Date [...] impairment: No documented as of this encounter Progress Notes * Shreyas Puentes MD - 05/26/2018 11:40 AM CDT Patient Name: Trent Velásquez Jr. Date of : 1970 Date of Service: 05/26/2018 Subjective: Trent Velásquez Jr. is a 47 y.o. male who presents for follow up in reference to history of atypical lipomainvolving the left thigh. History of Present Illness: The patient reports continued left thigh pain. He continues to consult with Dr. Lexi Amezcua and has had spinal injections with very minimal relief. He reports that he only gets roughly 3 hours of sleep each night due to pain. He has had at least 4 different surgeries to remove the left thigh lipoma over the past decade and we are monitoring in order to assure no signs of local recurrence. His most recent MRI scan demonstrates a fluid collection in the area most consistent with a postoperative seroma but no definitive evidence of local recurrence of disease. Review of Systems No fevers, chills, night sweats, weight loss or other constitutional symptoms. No chest pain, shortness of breath, hemoptysis. No adenopathy or cafe au lait spots. No bleeding diatheses, spontaneous bruising or other bleeding disorders. No hematuria, hematochezia, head or neck issues nor psychological concerns. Physical Exam Examination of the left thigh reveals no evidence of local recurrence of disease. Motor function of the extremity is 5/5, sensation is grossly intact. No masses or nodules are appreciated. The wound remains well-healed. Objective: Current Outpatient Medications on File Prior to Visit Medication Sig Dispense Refill ALPRAZolam (XANAX) 1 mg tablet TAKE ONE TABLET BY MOUTH TWICE DAILY FOR ANXIETY 0 atorvastatin (LIPITOR) 20 mg tablet TAKE ONE TABLET BY MOUTH ONCE DAILY 0 cloNIDine (CATAPRESS) 0.2 mg tablet Take one tablet by mouth three times daily. 180 tablet 3 diltiazem CD (CARDIZEM CD) 300 mg capsule Take 300 mg by mouth every morning. EPINEPHrine(+) (EPIPEN) 1 mg/mL injection pen (2-Pack) Inject 0.3 mg into the muscle once as needed. Inject 0.3 mg (1 Pen) into thigh if needed for anaphylactic reaction. May repeat in 5-15 minutes if needed. ergocalciferol (VITAMIN D-2) 50,000 unit capsule Take one capsule by mouth every 7 days. 12 capsule 0 hydrALAZINE (APRESOLINE) 25 mg tablet Take one tablet by mouth three times daily. 360 tablet 3 HYDROcodone/acetaminophen (NORCO) 7.5/325 mg tablet TAKE 1 TABLET BY MOUTH FOUR TIMES DAILY 0 losartan(+) (COZAAR) 100 mg tablet Take 1 tablet by mouth daily. 90 tablet 3 methotrexate sodium (RHEUMATREX) 2.5 mg tablet Take six tablets by mouth every 7 days. 72 tablet 0 metoprolol XL (TOPROL XL) 200 mg extended release tablet Take one tablet by mouth daily. 90 tablet 0 nitroglycerin (NITROSTAT) 0.[address] 0.4 mg under tongue every 5 minutes as needed for Chest Pain. Max of 3 tablets, call 911. ondansetron (ZOFRAN ODT) 4 mg rapid dissolve tablet DISSOLVE ONE TABLET BY MOUTH EVERY 8 HOURS NEEDED 0 pregabalin (LYRICA) 150 mg capsule Take 1 capsule by mouth twice daily. 60 capsule 3 spironolactone (ALDACTONE) 25 mg tablet Take one tablet by mouth daily. Take with food. 90 tablet 3 topiramate (TOPAMAX) 100 mg tablet TAKE ONE TABLET BY MOUTH TWICE DAILY 1 No current facility-administered medications on file prior to visit. BP 156/88 (BP Source: Arm, Left Upper, Patient Position: Sitting) | Pulse 86 | Temp 36.7 C (98.1 F) (Temporal) | Resp 22 | Ht 170.2 cm (67") | Wt 136.1 kg (300 lb) | SpO2 100% | BMI 46.99 kg/m Radiographs: 05/26/18 - Exam: CT LOWER EXTREM WO/W CONT LT [...] the patella. No acute fracture is identified. IMPRESSION: 1. 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 Soft tissue lesion is difficult to exclude, however no recurrent fatty tumor is identified. MRI without and with contrast could be helpful for further evaluation. 2. Chondrocalcinosis of the knee, compatible with CPPD. The patient also had a full body PET scan in March 09, 2018 which also demonstrates no evidence of recurrence of the tumor findings only consistent with postsurgical changes being evident. Patient is unable to undergo an MRI secondary to stainless steel tubes in eyes. Assessment and Plan: The lesion represents a benign, latent process: Atypical lipoma. 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 As discussed previously, I will monitor the lesion on a biannual basis for a minimum of two years to ensure stability and latency. If there are ever any clinical or radiographic changes, then biopsy or excision would be considered. Thus far, the lesion demonstrates its benign, latent character, and therefore we will continue to monitor as indicated above. The patient is educated as to the signs to look for referable to a transformation of the lesion. Patient would also like to consider pain pumps and stimulators in the future and will speak with Dr. Amezcua about this at his upcoming appointment. He will return to the clinic in [address] LLE. 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
--- OUTSIDE RECORDS SUMMARY | 2018-06-02 13:45 | XMS REPORT | Encounter Summary ---
Author Author [facility] Organization [facility] Address Unknown Phone Unavailable Care Team Providers Care Acquisition Analyst Name Role Phone Yana Chadwick MD 21 Shreyas Puentes MD 3 Eden Hennessy MD PCP Reason for Visit * Reason Comments Critical Result Encounter Details Care Team Description Date Type Department Glenys Kessler MD [address] [facility] L[facility] [address] [place] [address] [phone] Critical Result 05/13/2018 Telephone [facility] [address] [address] Social History Date Tobacco Use Types [...] encounter Miscellaneous Notes * Telephone Encounter - Iwona Lira RN - 05/16/2018 2:42 PM CDT Advised pt of medication Education completed Pt verbalized understanding Denies any concerns * Telephone Encounter - Glenys Kessler MD - 05/13/2018 4:01 PM CDT Your vitamin D is low. You will be starting Vitamin D 50,000 IU once a week for three months documented in this encounter Plan of Treatment Not on filedocumented as of this encounter Visit Diagnoses Not on filedocumented in this encounter
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
--- OUTSIDE RECORDS SUMMARY | 2018-06-02 13:46 | XMS REPORT | Encounter Summary ---
Author Author [facility] Organization [facility] Address Unknown Phone Unavailable Care Team Providers Care Oversize Load Pilot Escort Name Role Phone Yana Chadwick MD 21 Shreyas Puentes MD 3 Eden Hennessy MD PCP Reason for Visit * Reason Comments Lab Results Encounter Details Care Team Description Date Type Department Cat Sunshine RN Lab Results 05/05/2018 Documentation [facility] [address] [facility] [place] [address] Social History Date Tobacco Use Types Packs/Day [...] as of this encounter Miscellaneous Notes * Addendum Note - Cat Sunshine RN - 05/05/2018 3:13 PM CDT Addended by: CAT SUNSHINE on: 05/09/2018 01:30 PM Modules accepted: Orders documented in this encounter Plan of Treatment Not on filedocumented as of this encounter Procedures Comments Procedure Name Priority Date/Time Associated Diagnosis THYROID STIMULATING Routine 05/04/2018 Resistant hypertension HORMONE-TSH BASIC METABOLIC PANEL Routine 05/04/2018 Resistant hypertension documented in this encounter Results * THYROID STIMULATING HORMONE-TSH (05/04/2018) TSH 1.06 [facility] Specimen Blood - Blood Performing Organization Address City/[facility] Phone Number [facility] [address] [place] [address] * BASIC METABOLIC PANEL (05/04/2018) Sodium 130 [facility] Potassium 3.7 [facility] Chloride 100 [facility] CO2 25 [facility] Blood Urea 16 [facility] Nitrogen Creatinine 1.32 [facility] Glucose 139 [facility] Calcium 9.9 [facility] eGFR Non 59 (L) >60 [facility] eGFR [facility] Zambian Anion Gap 13 [facility] Specimen Blood - Blood Narrative Performed At Performing Organization Address City/[facility] Centercomn Phone Number MAIN LAB [address] [place] [address] documented in this encounter Visit Diagnoses Diagnosis Resistant hypertension documented in this encounter
--- OUTSIDE RECORDS SUMMARY | 2018-06-02 13:46 | XMS REPORT | Encounter Summary ---
Author Author [facility] Organization [facility] Address Unknown Phone Unavailable Care Team Providers Care Knot Tier Name Role Phone Yana Chadwick MD 21 Shreyas Puentes MD 3 Eden Hennessy MD PCP Reason for Visit * Reason Comments Hypertension Encounter Details Care Team Description Date Type Department Sonal Mariscal Hypertension 05/03/2018 Telephone [facility] [address] [place] [address] Social History Date Tobacco Use Types Packs/Day [...] Miscellaneous Notes * Telephone Encounter - Cat Sunshine RN - 05/04/2018 3:39 PM CDT Called and spoke with [facility] outpatient lab. TSH was not drawn today with BMP. BMP results will be faxed. Will refax TSH order to [facility] lab. Called and spoke with patient. Patient will have labs drawn tomorrow. * Telephone Encounter - Cat Sunshine RN - 05/04/2018 3:30 PM CDT Called and spoke with patient for follow up. Patient states he is "feeling better" today, but feels "exhausted." Patient's BP has improved, however, to 140/96. Patient states he had labs drawn this morning at [facility] He states he was instructed to go to [facility] from [facility]. Will request lab results to be sent. Reassured patient fatigue is sometimes common when BP comes down after being elevated for a long time. Pt verbalizes understanding. Will continue to monitor BP and will call if symptoms do not improve. * Addendum Note - Cat Sunshine RN - 05/03/2018 5:09 PM CDT Addended by: CAT SUNSHINE on: 05/03/2018 05:09 PM Modules accepted: Orders * Telephone Encounter - Cat Sunshine RN - 05/03/2018 5:02 PM CDT Spoke with Dr. Blue. He would like patient to make the following changes: OK if patient wants to stop Chlorthalidone Start Hydralazine 25 mg TID Increase Clonidine 0.2 mg TID Continue Spironolactone 25 mg daily, Metoprolol 200 mg daily, and Losartan 100 mg daily. Recheck labs tomorrow: BMP and TSH Connected with patient. Mr. Velásquez states his BP today at home was 249/117 and he feels "terrible." Patient states "my kidneys are hurting." Asked patient to describe the pain and he states his "lower back" started hurting today. He states he was urinating regularly after starting new medications prescribed by Dr. Blue on 04/28, but today he has not urinated as much. Patient hopes to stop Chlorthalidone. Provided recommendations from Dr. Blue. Pt verbalizes understanding and agreeable to plan. Will recheck labs tomorrow at [place], [place]. * Telephone Encounter - Hellen Scott, MILDRED - 05/03/2018 4:47 PM CDT Mela Correa [facility] Nurse Rei Butcher pt is MPE's pt and is requesting a call back. thanks I called patient back to discuss. When they took the BP at PCP it was 170/110. I spoke with Dr. Blue on the other line, who then called his RN. I let patient know that she should be calling with recommendations. * Telephone Encounter - Sonal Mariscal - 05/03/2018 4:04 PM CDT Patient called on nursing urgent line to c/o BP of 249/114. States his "kidneys are hurting" d/t diuretics. Advised pt. to report to local ER. He states he is on his way to PCP office and they are aware he is coming. He states if he gets admitted, he will request a transfer to . documented in this encounter Plan of Treatment Not on filedocumented as of this encounter Results * THYROID STIMULATING HORMONE-TSH (05/04/2018) TSH 1.06 [facility] Specimen Blood - Blood Performing Organization Address City/[facility]/Zipcode Phone Number MAIN LAB [address] [place] [address] * BASIC METABOLIC PANEL (05/04/2018) Sodium 130 [facility] Potassium 3.7 [facility] Chloride 100 [facility] CO2 25 [facility] Blood Urea 16 [facility] Nitrogen Creatinine 1.32 [facility] Glucose 139 [facility] Calcium 9.9 [facility] eGFR Non 59 (L) >60 [facility] eGFR [facility] Grenadian Anion Gap 13 [facility] Specimen Blood - Blood Narrative Performed At Performing Organization Address City/State/Zipcode Phone Number [facility] [address] [place] [address] documented in this encounter Visit Diagnoses Diagnosis Resistant hypertension - Primary documented in this encounter
--- OUTSIDE RECORDS SUMMARY | 2018-06-02 13:46 | XMS REPORT | Encounter Summary ---
Author Author [facility] Organization [facility] Address Unknown Phone Unavailable Care Team Providers Care Station Detective Name Role Phone Yana Chadwick MD 21 Shreyas Puentes MD 3 Eden Hennessy MD PCP Encounter Details Care Team Description Date Type Department Glenys Kessler MD [address] [facility] L[address] [place] [address] [phone] Essential (primary) hypertension 05/13/2018 [facility] [address] [address] Social History Date Tobacco Use Types Packs/Day [...] Comments Procedure Name Priority Date/Time Associated Diagnosis 25-OH VITAMIN D (D2 + D3) Routine 05/13/2018 Resistant hypertension 9:13 AM CDT Hyperparathyroid bone disease (HCC) BASIC METABOLIC PANEL Routine 05/13/2018 Resistant hypertension 9:13 AM CDT Hyperparathyroid bone disease (HCC) documented in this encounter Results * 25-OH VITAMIN D (D2 + D3) (05/13/2018 9:13 AM CDT) Vitamin 19.7 (L) 30 - 80 NG/ML [facility] D(25-OH)Total Specimen Blood Performing Organization Address City/[facility] Phone Number [facility] [address] [place] [address] * BASIC METABOLIC PANEL (05/13/2018 9:13 AM CDT) Sodium 138 137 - 147 MMOL/L [facility] [...] >60 >60 mL/min [facility] Comment: Citizen Of [place] The eGFR is not validated for use in drug dosing adjustments.Continue to use estimated creatinine clearance per dosing reference text.Please contact the Clinical Pharmacist for questions. eGFR >60 >60 mL/min [facility] Citizen Of [place] Comment: The eGFR is not validated for use in drug dosing adjustments.Continue to use estimated creatinine clearance per dosing reference text.Please contact the Clinical Pharmacist for questions. Specimen Blood Performing Organization Address [facility] Cent[facility]ode Phone Number [facility] [address] [place] [address] documented in this encounter Visit Diagnoses Diagnosis Resistant hypertension Hyperparathyroid bone disease (HCC) Primary hyperparathyroidism Essential hypertension Unspecified essential hypertension documented in this encounter
--- OUTSIDE RECORDS SUMMARY | 2018-06-02 13:46 | XMS REPORT | Encounter Summary ---
Author Author [facility] Organization [facility] Address Unknown Phone Unavailable Care Team Providers Care Farmer Diversified Crops Name Role Phone Yana Chadwick MD 21 Shreyas Puentes MD 3 Eden Hennessy MD PCP Reason for Referral * Pain Authorization (Routine) Referred By Contact Referred To Contact Status Reason Specialty Diagnoses / [place] [address] [place] [address] Geoff Spivey, DO [address] [facility] [place] [address] Closed Neurology Diagnoses History of lipoma Sarcoma (HCC) Pain of left lower leg P rocedures SPINE EMG PROCEDURE Reason for Visit * Reason Comments Pain Encounter Details Care Team Description Date Type [place] [address] [place], [place] [id number] History of lipoma (Primary Dx); Sarcoma (HCC); Pain of left lower leg 05/02/2018 Office Visit [facility] [address] [place], [place] [address] Social History Date Tobacco Use Types Packs/Day [...] Vital Signs Time Taken Vital Sign Reading 05/02/2018 10:37 AM CDT Blood Pressure 150/95 05/02/2018 10:37 AM CDT Pulse 73 - Temperature - - Respiratory Rate - 05/02/2018 10:37 AM CDT Oxygen Saturation 97% - Inhaled Oxygen - Concentration 05/02/2018 10:37 AM CDT Weight 133.8 kg (295 lb) 05/02/2018 10:37 AM CDT Height 170.2 cm (5' 7") 05/02/2018 10:37 AM CDT Body Mass Index 46.2 documented in [...] impairment: No documented as of this encounter Patient Instructions * Patient Instructions* Amanda Plummer RN - 05/02/2018 11:[address] Lexi Amezcua General Instructions: How to reach me: Please send a [employer] [facility] message to the Spine Center or leave a voicemail Amanda Plummer at [phone] How to get a medication refill: Please use the [employer] Refill request or contact your pharmacy directly to request medication refills. How to receive your test results: If you have signed up for [employer], you will receive your test results and messages from me this way. Otherwise, you will get a phone call or letter. If you are expecting results and have not heard from my office within 2 weeks of your testing, please send a [employer] message or call my office. Scheduling: Our scheduling phone number if you are a Spine Center patient is [phone]. If you are a cancer center patient, please call the cancer center you go to for scheduling. Appointment Reminders on your cell phone: Make sure we have your cell phone number, and Text [facility] to [phone]. Support for many chronic illnesses is available through [employer]: [facility]org or 706-492-8471. For questions on nights, weekends or holidays, call the power system operator at , and ask for the doctor multi operation machine operator for Physical Medicine and Rehab. documented in this encounter Progress Notes * Lexi Amezcua MD - 05/02/2018 11:00 AM CDT ONCOLOGY REHAB HISTORY AND PHYSICAL Chief Complaint Patient presents with Left Thigh - Pain Subjective HISTORY OF PRESENT ILLNESS: Mr. Velásquez is a pleasant 47 y.o. male with a history of LLE lipoma s/p resection x4 in [place] with the last in 2015 who is seen on 05/02/2018 at the [facility] for follow up evaluation and treatment of LLE pain. Previously, he was prescribed Cymbalta 60 mg [...] Last attempt to quit: 10/18/2016 Years since quittin.5 Smokeless tobacco: Never Used Substance and Sexual [...] ONE TABLET BY MOUTH ONCE DAILY 0 chlorthalidone (HYGROTON) 25 mg tablet Take one tablet by mouth daily. 30 tablet 3 cloNIDine (CATAPRESS) 0.2 mg tablet Take one tablet by mouth twice daily. 180 tablet 3 diltiazem CD (CARDIZEM CD) 300 mg capsule Take 300 mg by mouth every morning. EPINEPHrine(+) (EPIPEN) 1 mg/mL injection pen (2-Pack) Inject 0.3 mg into the muscle once as needed. Inject 0.3 mg (1 Pen) into thigh if needed for anaphylactic reaction. May repeat in 5-15 minutes if needed. HYDROcodone/acetaminophen (NORCO) 7.5/325 mg tablet TAKE 1 [...] medications on file prior to visit. Vitals: 05/02/18 1037 BP: (!) 150/95 Pulse: 73 SpO2: 97% Weight: 133.8 kg (295 lb) Height: 170.2 cm (67") Pain Score: Nine Body mass index is 46.2 kg/m. Review of Systems Complete 10 point [...] bone scan - no evidence supporting CRPS IMPRESSION: 1. History of lipoma 2. Sarcoma (HCC) 3. Pain of left lower leg In summary, this is a 47 y.o. year old male with a history of LLE lipoma s/p resection x4 in [place] with the last in 2015. History and [...] skin color changes, edema, and disproportionate pain. The patient has been receiving opioid medications [...] but discussed that we do not do instrument shop supervisor opioid mgmt at the spine center. We [...] days. Planning to follow up with Dr. Soto. Plan: 1. Medications: Can continue current opioid medications as prescribed by his PCP. 2. Therapy: The patient will continue in his therapy directed HEP. Recently completed additional therapy for LLE strengthening. 3. Interventions: none indicated at this time. Currently following with Dr. Soto - recent lumbar sympathetic block 04/05/18 4. Diagnostic studies: order placed for NCS/EMG LLE 5. Follow up: will plan to see the patient back for reevaluation as needed. 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
--- OUTSIDE RECORDS SUMMARY | 2018-06-02 13:46 | XMS REPORT | Encounter Summary ---
Author Author [facility] Organization [facility] Address Unknown Phone Unavailable Care Team Providers Care C.O.D. Biller Name Role Phone Yana Chadwick MD 21 Shreyas Puentes MD 3 Eden Hennessy MD PCP Reason for Visit * Reason Comments Lab Results Encounter Details Care Team Description Date Type Department Cat Valenzuela RN Lab Results 05/09/2018 Telephone [facility] [address] [facility] [place] [address] Social History Date Tobacco Use Types Packs/Day [...] Telephone Encounter - Cat Valenzuela RN - 05/09/2018 3:22 PM CDT Called and spoke with patient regarding Dr. Blue's recommendations. Pt verbalizes understanding and will have labs rechecked in two weeks. Orders entered and will fax to [facility]. * Telephone Encounter - Cat Valenzuela RN - 05/09/2018 3:20 PM CDT ----- Message from Roger Blue MD sent at 05/09/2018 2:21 PM CDT ----- Creat mildly up. Recheck in 2 weeks ----- Message ----- From: Cat Valenzuela RN Sent: 05/09/2018 1:33 PM To: MD Dr. Su Carr, labs for review. Pt called last week with elevated BP readings. Medication changes made. Patient sending BP readings in this week. Anamika Avila documented in this encounter Plan of Treatment Not on filedocumented as of this encounter Results * BASIC METABOLIC PANEL (05/11/2018) Sodium 141 [facility] Potassium 3.8 [facility] Chloride 103 [facility] CO2 31 [facility] Blood Urea 19 [facility] Nitrogen Creatinine 1.10 [facility] Glucose 89 [facility] Calcium 9.3 [facility] eGFR Non 80 [facility] eGFR 92 [facility] Latvian Anion Gap [facility] Specimen Blood - Blood Narrative Performed At [facility] Dr. Blue, repeat labs for review.Adjusted BP meds approximately 10 days ago.Creat bumped previously to 1.32 on 05/04.Wanted recheck in a couple weeks.Patient already went to lab - Cr now 1.10.Anamika Avila Performing Organization Address City/State/Zipcode Phone Number MAIN [facility] [address] [place] [address] documented in this encounter Visit Diagnoses Diagnosis MELI (obstructive sleep apnea) - Primary Obstructive sleep apnea (adult) (pediatric) Resistant hypertension documented in this encounter
--- OUTSIDE RECORDS SUMMARY | 2018-06-02 13:46 | XMS REPORT | Encounter Summary ---
Author Author [facility] Organization [facility] Address Unknown Phone Unavailable Care Team Providers Care Finish Machine Tender Name Role Phone Yana Chadwick MD 21 Shreyas Puentes MD 3 Eden Hennessy MD PCP Reason for Visit * Reason Comments Lab Results Encounter Details Care Team Description Date Type Department Cat Valenzuela RN Lab Results 05/12/2018 Telephone [facility] [address] [address] Social History Date Tobacco Use Types Packs/Day [...] Telephone Encounter - Cat Valenzuela RN - 05/12/2018 1:25 PM CDT Routed to [facility] for review. documented in this encounter Plan of Treatment Not on filedocumented as of this encounter Procedures Comments Procedure Name Priority Date/Time Associated Diagnosis BASIC METABOLIC PANEL Routine 05/11/2018 Resistant hypertension documented in this encounter Results * BASIC METABOLIC PANEL (05/11/2018) Sodium 141 [facility] Potassium 3.8 [facility] Chloride 103 [facility] CO2 31 [facility] Blood Urea 19 [facility] Nitrogen Creatinine 1.10 [facility] Glucose 89 [facility] Calcium 9.3 [facility] eGFR Non 80 [facility] eGFR 92 [facility] Slov[place] Anion Gap [facility] Specimen Blood - Blood Narrative Performed At MAIN LAB Dr. Blue, repeat labs for review.Adjusted BP meds approximately 10 days ago.Creat bumped previously to 1.32 on 05/04.Wanted recheck in a couple weeks.Patient already went to lab - Cr now 1.10.Thanks, Anamika Performing Organization Address City/State/Zipcode Phone Number MAIN LAB [address] [place] [address] documented in this encounter Visit Diagnoses Diagnosis Resistant hypertension documented in this encounter
--- OUTSIDE RECORDS SUMMARY | 2018-06-02 13:46 | XMS REPORT | Encounter Summary ---
Author Author [facility] Organization [facility] Address Unknown Phone Unavailable Care Team Providers Care Online Community Manager Name Role Phone Yana Chadwick MD 21 Shreyas Puentes MD 3 Eden Hennessy MD PCP Reason for Referral * Consult, Test & Treat (Routine) Referred By Contact Referred To Contact Status Reason Specialty Diagnoses / Procedures Glenys Kessler MD [address] [facility] [address] [place] [address] [facility] [address] [place] [address] New Request Specialty Services Pulmonology Diagnoses Required Sleep apnea, unspecified type Reason for Visit * Reason Comments Other Encounter Details Care Team Description Date Type Department Glenys Kessler MD [address] [facility] [address] [place] [address] [phone] Resistant hypertension (Primary Dx); Hyperparathyroid bone disease (HCC); Sleep apnea, unspecified type 05/13/2018 Office Visit [facility] [address] [facility] [address] [place] [address] Social History Date Tobacco Use [...] Vital Signs Time Taken Vital Sign Reading 05/13/2018 8:35 AM CDT Blood Pressure 133/89 05/13/2018 8:35 AM CDT Pulse 79 - Temperature - - Respiratory Rate - - Oxygen Saturation - - Inhaled Oxygen - Concentration 05/13/2018 8:35 AM CDT Weight 129.3 kg (285 lb) 05/13/2018 8:35 AM CDT Height 170.2 cm (5' 7") 05/13/2018 8:35 AM CDT Body Mass Index 44.64 documented in this encounter Functional Status Date [...] this encounter Patient Instructions * Patient Instructions* Glenys Kessler MD - 05/13/2018 9:30 AM CDT Please get labs on the first floor We will also the salivary testing. The directions are in the packet. Please put the date and time on your name tag. documented in this encounter Progress Notes * Glenys Kessler MD - 05/13/2018 9:30 AM CDT Subjective: History of Present Illness Trent Velásquez Jr. is a 47 y.o. male. Mr. Velásquez comes today for a workup for resistant hypertension. He is a remarkably pleasant gentleman who sees my colleague Dr. Vargas in our electrophysiology subdivision. The patient has a prior history of nonsustained VT and a diagnosis of myocarditis. currently untreated and severe resistant hypertension since he was 20 years old. The patient reports that he has struggled with blood pressure more so over the last couple of years. He is hoping that we can help him. The patient does not report any symptoms that would be suggestive of a catecholamine excess or a serotonin excess syndrome. He denies any symptoms of lower extremity edema current palpitatio He also has obstructive sleep apnea currrently untreated. He is reporting episodes of insomnia mixed with increased hypersomnolence and fatigue. This is likely related to untreated obstructive sleep apnea. He reports an insect infestation in his CPAP machine. We will contact his sleep supplier, and see if he can be re-issued a new CPAP machine. This individual was being evaluated for resistant hypertension by Dr. Blue and on evaluation it seems that he is a he an elevated PTH with a normal corresponding calcium level. He denies any significant hypercalcemia. He has gained about 40 pounds in the last 4 months he has difficulty getting up from a chair and he does have easy bruising. The patient has gained 40 lb in four months. Difficulty getting up from chair Easy bruising Review of Systems HENT: Negative. Eyes: Negative. Cardiovascular: Negative. Gastrointestinal: Negative. Genitourinary: Negative. Psychiatric/Behavioral: Negative. Past medical history: 1. Morbid obesity 2. History of nonsustained ventral tachycardia 3. Obstructive sleep apnea currently untreated 4. 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 6. History of sick sinus syndrome with pacemaker in place 7. Legally blind in one eye since Social history: 1. The patient does smoke but is trying to quit 2. Does not use alcohol in any severe quantities Objective: ALPRAZolam (XANAX) 1 mg tablet TAKE ONE TABLET BY MOUTH TWICE DAILY FOR ANXIETY atorvastatin (LIPITOR) 20 mg tablet TAKE ONE TABLET BY MOUTH ONCE DAILY cloNIDine (CATAPRESS) 0.2 mg tablet Take one tablet by mouth three times daily. diltiazem CD (CARDIZEM CD) 300 mg capsule Take 300 mg by mouth every morning. EPINEPHrine(+) (EPIPEN) 1 mg/mL injection pen (2-Pack) Inject 0.3 mg into the muscle once as needed. Inject 0.3 mg (1 Pen) into thigh if needed for anaphylactic reaction. May repeat in 5-15 minutes if needed. hydrALAZINE (APRESOLINE) 25 mg tablet Take one tablet by mouth three times daily. HYDROcodone/acetaminophen (NORCO) 7.5/325 mg tablet TAKE 1 TABLET BY MOUTH FOUR TIMES DAILY losartan(+) (COZAAR) 100 mg tablet Take 1 tablet by mouth daily. methotrexate sodium (RHEUMATREX) 2.5 mg tablet Take six tablets by mouth every 7 days. metoprolol XL (TOPROL XL) 200 mg extended release tablet Take one tablet by mouth daily. nitroglycerin (NITROSTAT) 0.[address] 0.4 mg under tongue every 5 minutes as needed for Chest Pain. Max of 3 tablets, call 911. ondansetron (ZOFRAN ODT) 4 mg rapid dissolve tablet DISSOLVE ONE TABLET BY MOUTH EVERY 8 HOURS NEEDED pregabalin (LYRICA) 150 mg capsule Take 1 capsule by mouth twice daily. spironolactone (ALDACTONE) 25 mg tablet Take one tablet by mouth daily. Take with food. topiramate (TOPAMAX) 100 mg tablet TAKE ONE TABLET BY MOUTH TWICE DAILY Vitals: 05/13/18 0835 BP: 133/89 Pulse: 79 Weight: 129.3 kg (285 lb) Height: 170.2 cm (67") Body mass index is 44.64 kg/m. Physical Exam Physical Exam: Gen: A&O x 3 in nad HEENT: PERRL, EOMI, Neck: No TM nor thyroid nodularity CV: RRR Pulm: Coarse BS throughout anterior condon Abd: Distended, NTTP, hypoactive BS; no palpable HSM. Ext: Trace edema; no sores; no dystrophic nails Neuro: Sensation grossly intact BLE Psych: Mood upbeat and affect appropriate Skin: No rash Assessment and Plan: Elevated PTH most likely is versus elevated PTH is due to vitamin D deficiency. This can occur where you have a severe vitamin D deficiency he does have risk factors for that. We will check a vitamin D level and treat him appropriately with vitamin D as needed. Resistant hypertension patient has resistant hypertension with a 40 pound weight gain we will rule him out for [place]'s disease will do both salivary cortisol levels are 24 urine for urinary Cortisol. Severe sleep apnea is individual has severe sleep apnea which definitely contributes to his hypertension not going to refer her to our pulmonary clinic for further evaluation. He definitely needs to get a new CPAP. documented in this encounter Plan of Treatment Order Schedule Name Priority Associated Diagnoses Expected: 05/13/2018, Expires: 05/14/2019 CREATININE-URINE 24 HR Routine Resistant hypertension Hyperparathyroid bone disease (HCC) Expected: 05/13/2018, Expires: 05/14/2019 SODIUM-URINE 24 HR Routine Resistant hypertension Hyperparathyroid bone disease (HCC) Order Schedule Name Priority Associated Diagnoses Ordered: 05/13/2018 AMB REFERRAL TO PULMONARY Routine Sleep apnea, unspecified type documented as of this encounter Results * FREE CORTISOL-URINE 24 HR (05/19/2018) Cortisol, Free 6 5 - 64 OTHER OUTSIDE Urine, Total LAB Specimen Urine - Urine Narrative Performed At Performing Organization Address [facility] Phone Number [facility] * CALCIUM-URINE 24HR (05/19/2018) Calcium 24 Hr 53.9 100.0 - 300.0 OTHER OUTSIDE LAB Specimen Urine - Urine Narrative Performed At Performing Organization Address City/[facility] Phone Number OTHER OUTSIDE LAB * CORTISOL,SALIVA (05/18/2018) Cortisol, 0.018 0.010 - 0.090 MAIN [facility] Sample 2 Specimen Saliva - Salivette Swab Narrative Performed At Performing Organization Address City/[facility] Phone Number [facility] [address] [place] [address] * CORTISOL,SALIVA (05/17/2018 11:00 PM CDT) Cortisol, 0.054 0.010 - 0.090 MAIN [facility] Sample 1 Specimen Saliva - Salivette Swab Narrative Performed At Performing Organization Address City/[facility]/Zipcode Phone Number MAIN LAB [address] [place] [address] * 25-OH VITAMIN D (D2 + D3) (05/13/2018 9:13 AM CDT) Vitamin 19.7 (L) 30 - 80 NG/ML MAIN [facility] D(25-OH)Total Specimen Blood Performing Organization Address City/[facility]/Zipcode Phone Number MAIN LAB [address] [place] [address] * BASIC METABOLIC PANEL (05/13/2018 9:13 AM [...] mL/min [facility] Comment: [place] The eGFR is not validated for use in drug dosing adjustments.Continue to use estimated creatinine clearance per dosing reference text.Please contact the Clinical Pharmacist for questions. eGFR >60 >60 mL/min [facility] [place] Comment: The eGFR is not validated for use in drug dosing adjustments.Continue to use estimated creatinine clearance per dosing reference text.Please contact the Clinical Pharmacist for questions. Specimen Blood Performing Organization Address City/State/Zipcode Phone Number MAIN LAB [address] [place] [address] documented in this encounter Visit Diagnoses Diagnosis Resistant hypertension - Primary Hyperparathyroid bone disease (HCC) Primary hyperparathyroidism Sleep apnea, unspecified type documented in this encounter
--- OUTSIDE RECORDS SUMMARY | 2018-06-02 13:47 | XMS REPORT | Encounter Summary ---
Author Author [facility] Organization [facility] Address Unknown Phone Unavailable Care Team Providers Care Web Design Intern Name Role Phone Yana Chadwick MD 21 Shreyas Puentes MD 3 Eden Hennessy MD PCP Reason for Referral * Consult, Test & Treat (Routine) Referred By Contact Referred To Contact Status Reason Specialty Diagnoses / Procedures Roger Blue MD [address] [place] [address] Pending Review Diagnoses Essential hypertension P rocedures REQUEST FOR CARDIOLOGY APPOINTMENT * Consult, Test & Treat (Routine) Referred By Contact Referred To Contact Status Reason Specialty Diagnoses / Procedures Saul Altamirano MD [address] [place] [address] New Request Procedures REQUEST FOR CARDIOLOGY APPOINTMENT Reason for Visit * Reason Comments Cardiac Eval HTN * Consult, Test & Treat (Routine) Referred By Contact Referred To Contact Status Reason Specialty Diagnoses / Procedures Saul Altamirano MD [address] [place] [address] New Request Procedures REQUEST FOR CARDIOLOGY APPOINTMENT Encounter Details Care Team Description Date Type Department Roger Blue MD [address] [place] [id number] [phone] Cardiac Eval (HTN) 04/28/2018 Office Visit [facility] [address] [facility] [address] [place] [address] Social History Date Tobacco Use Types Packs/Day [...] Vital Signs Time Taken Vital Sign Reading 04/28/2018 3:52 PM CDT Blood Pressure 160/100 04/28/2018 3:52 PM CDT Pulse 86 - Temperature - - Respiratory Rate - - Oxygen Saturation - - Inhaled Oxygen - Concentration 04/28/2018 3:52 PM CDT Weight 133.8 kg (295 lb) 04/28/2018 3:52 PM CDT Height 170.2 cm (5' 7") 04/28/2018 3:52 PM CDT Body Mass Index 46.2 documented in this encounter Functional Status Date of Assessment Functional Status Response 04/11/2018 Does the patient have a hearing impairment: No 04/11/2018 Does the patient have a visual impairment: No 04/11/2018 Does the patient have impaired ambulation: Yes 04/11/2018 Does the patient have an activity of daily living Yes (ADL) impairment: 03/08/2018 Does the patient have an instrumental activity of No daily living (IADL) impairment: Date of Assessment Cognitive Status Response 04/11/2018 Does the patient have a cognitive impairment: No documented as of this encounter Patient Instructions * Patient Instructions* Cat Valenzuela RN - 04/28/2018 3:30 PM CDT It was a pleasure to see you today! 1. Please pickle solution maker blood pressure cuff from pharmacy and send blood pressure readings to [facility] every two weeks. Take your blood pressure twice daily. 2. Please have labs drawn in two weeks after medication changes made today. 3. Dr. Blue would like to see you back in the office in 6 months - we will send you a card in the mail to schedule that appointment. If you have any questions in the meantime, please call [facility] [phone]. Good to see you and take care! documented in this encounter Progress Notes * Roger Blue MD - 04/28/2018 3:30 PM CDT Date of Service: 04/28/2018 Trent Velásquez Jr. is a 47 y.o. male. HPI Mr. Velásquez comes today for a workup for resistant hypertension. He is a remarkably pleasant gentleman who sees my colleague Dr. Vargas in our electrophysiology subdivision. The patient has a prior history of nonsustained VT and a diagnosis of myocarditis. He also has obstructive sleep apnea currently untreated and severe resistant hypertension since [...] any symptoms of lower extremity edema current palpitations. He has not had any very recent hospitalizations for emergent hypertension. He reports compliance with medications. He is on disability for a long time for multiple reasons. Past medical history: 1. Morbid obesity 2. [...] not use alcohol in any severe quantities Family history: There is family history of hypertension at an early age but he does not know if it is resistant Vitals: 04/28/18 1552 BP: (!) 160/100 Pulse: 86 Weight: 133.8 kg (295 lb) Height: 1.702 m (5' 7") Body mass index is 46.2 kg/m. Past Medical History Patient Active Problem List Diagnosis Date Noted Class 3 obesity in adult 08/06/2017 Coxsackie viruses 04/28/2017 Sarcoma (HCC) 04/28/2017 Tobacco abuse 04/28/2017 Myocarditis (HCC) 02/26/2017 NSVT (nonsustained ventricular tachycardia) (HCC) 02/26/2017 Cardiac device in situ 01/14/2017 Sinus node dysfunction (HCC) 11/02/2016 Dr. Valdez S/p PPM implant- Advisa 02/20/16 PSVT (paroxysmal supraventricular tachycardia) ([facility]) 11/02/2016 Resistant hypertension 11/02/2016 MELI (obstructive sleep apnea) 11/02/2016 History of lipoma 09/30/2016 Pain of left thigh 09/30/2016 Pain of left lower leg 09/30/2016 Review of Systems Constitution: Negative. HENT: Negative. Eyes: Negative. Cardiovascular: Positive for chest pain, claudication, dyspnea on exertion, irregular heartbeat and leg swelling. Respiratory: Negative. Endocrine: Negative. Hematologic/Lymphatic: Negative. Skin: Negative. Musculoskeletal: Negative. Gastrointestinal: Negative. Genitourinary: Negative. Neurological: Negative. Psychiatric/Behavioral: Negative. Allergic/Immunologic: Negative. Physical Exam Physical Exam General Appearance: no acute distress, obese Skin: warm, moist, no ulcers HENT: unremarkable Eyes; Pupils are round and reactive. No icterus Neck Veins: neck veins are flat, neck veins are not distended Carotid Arteries: normal carotid upstroke bilaterally, no bruits Chest Inspection: chest is normal in appearance Auscultation/Percussion: lungs clear to auscultation, no rales, rhonchi, or wheezing Cardiac Rhythm: regular rhythm and normal rate Cardiac Auscultation: Normal S1 & S2, no S3 or S4, no rub Murmurs: no cardiac murmurs Extremities: pedal pulses normal, No pedal edema. Abdominal Exam: soft, non-tender, no masses, bowel sounds normal Liver & Spleen: no organomegaly Neurologic Exam: neurological assessment grossly intact Problems Addressed Today Encounter Diagnoses Name Primary? Essential hypertension Yes Assessment and Plan The patient's resistant hypertension is likely essential hypertension but has multiple aggravating factors including morbid obesity and obstructive sleep apnea for which she does not wear a sleep mask. Also poor compliance with salt restriction is also a causative agent here. He is currently taking clonidine 0.2 mg twice a day and metoprolol XL 200 mg twice a day losartan 100 mg daily. His renal artery duplex was normal. We are going to do the followin. Check our secondary hypertension labs including aldosterone renin ratio and serum free metanephrine and TSH and parathyroid hormone levels 2. I am decreasing the dose of metoprolol to 200 once daily 3. Starting chlorthalidone 25 mg daily 4. Starting Aldactone 25 mg daily 5. As in the patient to record his blood pressure twice daily for 2 weeks and send us readings 6. Work towards getting a CPAP mask and machine that works for him with his primary care physician 7. We will work with him closely to get his blood pressure under control over the next few weeks Current Medications (including today's revisions) ALPRAZolam (XANAX) 1 mg tablet TAKE ONE TABLET BY MOUTH TWICE DAILY FOR ANXIETY atorvastatin (LIPITOR) 20 mg tablet TAKE ONE TABLET BY MOUTH ONCE DAILY chlorthalidone (HYGROTON) 25 mg tablet Take one tablet by mouth daily. cloNIDine (CATAPRESS) 0.2 mg tablet Take one tablet by mouth twice daily. diltiazem CD (CARDIZEM CD) 300 mg [...] TAKE ONE TABLET BY MOUTH TWICE DAILY documented in this encounter Plan of Treatment Order Schedule Name Priority Associated Diagnoses Ordered: 04/28/2018 ECG 12-LEAD Routine Essential hypertension documented as of this encounter Results * METANEPHRINES FRACT FREE PLASMA (04/28/2018 4:53 PM CDT) Pathologist [facility] Normetaphrine, 0.54 REFERENCE LAB Plasma Comment: Reference range: <0.90 Unit: nmol/L [facility], [address] [place] [id number] Metanephrine,Pl <0.20 REFERENCE LAB asma Reference range: <0.50 Unit: nmol/L ADDITIONAL INFORMATION This test was developed and its performance characteristics determined by [facility] in a manner consistent with CLIA requirements. This test has not been cleared or approved by the U.S. Food and Drug Administration. [facility], [address] [place] [address] Specimen Blood Performing Organization Address City/[facility] Phone Number REFERENCE LAB REFERENCE LAB See results for address. * CORTISOL,RANDOM (04/28/2018 4:53 PM CDT) [facility] Cortisol, 6.3 5.0 - 20.0 MCG/DL MAIN LAB Random Specimen Blood Performing Organization Address [facility] Phone Number MAIN LAB [address] [place] [address] * ALDOSTERONE-RANDOM (04/28/2018 4:53 PM CDT) Pathologist [facility] Aldosterone, 13 3 - 24 ng/dL MAIN LAB Random Specimen Blood Performing Organization Address [facility] Phone Number [facility] [address] [place] [address] * RENIN-RANDOM (04/28/2018 4:53 PM CDT) Pathologist [facility] Renin-Random 10 3 - 45 pg/mL MAIN LAB Comment: The renin value is a new "direct" assay corresponding to antigen concentration rather than renin activity. The normal ratio for aldosterone to renin is 0.1-3.7. A ratio of greater than 3.7 is suggestive of aldosteronism. Specimen Blood Performing Organization Address [facility] Phone Number [facility] [address] [place] [address] * URIC ACID (04/28/2018 4:53 PM CDT) [facility] Uric Acid 6.0 4.0 - 8.0 MG/DL [facility] MAIN LAB Specimen Blood Performing Organization Address City/[facility] Phone Number [facility] MAIN [facility] [address] [place] [address] * PARATHYROID HORMONE (04/28/2018 4:53 PM CDT) PTH Hormone 160.2 (H) 10 - 65 PG/ML [facility] MAIN [facility] Specimen Blood Performing Organization Address [facility] Phone Number [facility] MAIN [facility] [address] [place] [phone] * THYROID STIMULATING HORMONE-TSH (04/28/2018 4:53 PM CDT) TSH 1.450 0.35 - 5.00 MCU/ML [facility] MAIN [facility] Specimen Blood Performing Organization Address [facility] Phone Number [facility] [address] [place] [address] * COMPREHENSIVE METABOLIC PANEL (04/28/2018 4:53 PM CDT) Sodium 134 (L) 137 - 147 MMOL/L [facility]IN [facility] Potassium 4.1 3.5 - 5.1 MMOL/L [facility] Chloride 102 98 - 110 [...] >60 >60 mL/min [facility] MAIN [facility] Comment: Dominican The eGFR is not validated for use in drug dosing adjustments.Continue to use estimated creatinine clearance per dosing reference text.Please contact the Clinical Pharmacist for questions. eGFR >60 >60 mL/min [facility] MAIN [facility] Dominican Comment: The eGFR is not validated for use in drug dosing adjustments.Continue to use estimated creatinine clearance per dosing reference text.Please contact the Clinical Pharmacist for questions. Specimen Blood Performing Organization Address City/State/Zipcode Phone Number MAIN LAB [address] [place] [address] * CBC (04/28/2018 4:53 PM CDT) White Blood 8.8 4.5 - 11.0 K/UL [facility] MAIN [facility] Cells RBC 5.29 4.4 - 5.5 M/UL [facility] Hemoglobin 15.5 13.5 - 16.5 GM/DL [facility]IN [facility] Hematocrit 46.4 40 - 50 % [facility] MCV 87.8 80 - 100 FL [facility] MCH 29.2 26 - 34 PG [facility] MCHC 33.3 32.0 - 36.0 G/DL [facility] RDW 14.2 11 - 15 % [facility] Platelet Count 184 150 - 400 K/UL [facility] MAIN [facility] MPV 11.3 (H) 7 - 11 FL [facility] MAIN [facility] Specimen Blood Performing Organization Address City/[facility]/Zipcode Phone Number MAIN LAB [address] [place] [address] documented in this encounter Visit Diagnoses Diagnosis Essential hypertension - Primary Unspecified essential hypertension documented in this encounter
--- OUTSIDE RECORDS SUMMARY | 2018-06-02 13:47 | XMS REPORT | Encounter Summary ---
Author Author [facility] Organization [facility] Address Unknown Phone Unavailable Care Team Providers Care Technology Specialist Name Role Phone Yana Chadwick MD 21 Shreyas Puentes MD 3 Eden Hennessy MD PCP Reason for Referral * Consult, Test & Treat (Routine) Referred By Contact Referred To Contact Status Reason Specialty Diagnoses / Procedures Saul Altamirano MD [address] [facility] [place] [address] Rb - [facility] [id number] [place] [address] New Request Specialty Services Sleep Center Diagnoses Required Essential hypertension Scheduling Instructions Neck circumference may be a required measurement for sleep study prior authorization and/or claim payment. Has neck circumference been obtained? no Reason for Visit * Reason Comments Hypertension Encounter Details Care Team Description Date Type Department Alejandro West RN Hypertension 04/19/2018 Telephone [facility] [address] [place] [address] Social History Date Tobacco Use Types Packs/Day [...] encounter Miscellaneous Notes * Addendum Note - Alejandro West RN - 04/19/2018 2:50 PM CDT Addended by: MARISOL WEST on: 04/19/2018 02:50 PM Modules accepted: Orders * Telephone Encounter - Cindy Swan RN - 04/19/2018 2:38 PM CDT reviewed BP readings with Dr Altamirano, advised clonidine 0.1 mg be increased from once per day to twice per day. * Telephone Encounter - Alejandro West RN - 04/19/2018 2:37 PM CDT Per Cindy Swan via [employer]... viola white... keeley needs to take clonidine 0.1 twice per day (think he is now on once per day) Called patient. He states his repeat BP was 159/102. He states his PCP has instructed him to return this afternoon for another check & they will determine whether or not to admit him at that time. Informed him of [facility] recommendation. Updated Rx sent. * Telephone Encounter - Alejandro West RN - 04/19/2018 10:14 AM CDT Returned call. Patient states he presented to his PCP office this AM for routine BP check - it was 179/98. He states it was taken ~30 minutes after he took his AM meds. He states his BPs from 04/08-04/14 have been 150s-170s / 80s-90s. Per 04/07 [facility] OV... He does not have room for further titration of his antihypertensives in the current state. Therefore, we will add Clonidine 0.1 mg daily to his medical regimen anticipate we will need to increase it further with persistent accelerated hypertension. I also anticipate that his untreated sleep apnea is contributing to his accelerated hypertension, etc. He has an appointment with a sleep specialist sometime in the next few weeks to month to get a new CPAP machine, etc. I also discussed that he cannot/should not remain in bed the majority of the day that he needs to be up and exercising regularly which will improve a lot of his healthcare issues. -- We will have him follow up with Dr. Blue in the Hypertension Clinic Of note, 04/12 renal artery duplex was negative. Patient confirms that he has been compliant with his meds. He takes the following... Diltiazem CD 300qAM Losartan 100qd Toprol XL 200bid Clonidine 0.1qd He states he does not have an appointment with a sleep specialist & thought [facility] was referring him to one. He states he has not seen a sleep specialist in many years. Referral for Sleep Studies ordered & faxed the the Central Referral fax # [phone]. I gave him the number for the Sleep Medicine Clinic ([phone]); I told him to call to schedule an appointment if he has not heard from them in 1 week. He states his diet is primarily freshly prepared & does not consist of a lot of prepackaged food. He does admit adding salt to his food regularly though. We discussed decreasing or eliminating added salt. He states he does not exercise d/t pain issues. We discussed the importance of regular physical activity in controlling BP. He has an OV with Dr. Blue scheduled for 05/11. Per Anamika Valenzuela, denisha to move him up to 04/28 @ 1530 @ . Patient agreeable. I rescheduled this appointment. He states he does not have a BP cuff at home. I advised him to get one. He states he was instructed to return to his PCP office for a repeat BP later this AM. He states if it is still elevated, they plan on admitting him to [facility] in [place]. He states, if admitted, he wants to be admitted to . I told him that the medical staff at [facility] can seek transfer to if they would like. He states he will call us later this AM to inform us of his repeat BP & whether or not he is being admitted to the hospital. I told him that if he is admitted to the hospital to instruct them to send us the records from his admission or contact our office on discharge so that we can request records. Will route to [facility] for review with [facility] - increase clonidine? * Telephone Encounter - Alejandro eWst RN - 04/19/2018 10:13 AM CDT ----- Message from Cherry Fabian LPN sent at 04/19/2018 9:08 AM CDT ----- Regarding: [facility]- elevated b/p VM from patient on triage line. His b/p is elevated and PCP would like to know what [facility] would like to do about it. documented in this encounter Plan of Treatment Order Schedule Name Priority Associated Diagnoses Ordered: 04/19/2018 AMB REFERRAL FOR SLEEP STUDIES Routine Essential hypertension documented as of this encounter Visit Diagnoses Diagnosis Essential hypertension - Primary Unspecified essential hypertension documented in this encounter
--- OUTSIDE RECORDS SUMMARY | 2018-06-02 13:47 | XMS REPORT | Encounter Summary ---
Author Author [facility] Organization [facility] Address Unknown Phone Unavailable Care Team Providers Care Transportation Mechanic Name Role Phone Yana Chadwick MD 21 Shreyas Puentes MD 3 Eden Hennessy MD PCP Encounter Details Care Team Description Date Type Department Cindy Swan RN 04/25/2018 Telephone [facility] [address] [place] [address] Social History Date Tobacco Use [...] Telephone Encounter - Cindy Swan RN - 04/25/2018 2:07 PM CDT at PCP 178/110 and said it came down some after he rested. PCP has instructed him to increase the Clonidine to 0.2 mg twice daily He has enough of the tablets to last until his appt with Vipul Blue at HTN clinic Trent will continue to monitor readings and c/b if further questions * Telephone Encounter - Cindy Swan RN - 04/25/2018 2:07 PM CDT ----- Message from Cherry Fabian LPN sent at 04/25/2018 11:50 AM CDT ----- Regarding: [facility]- elevated b/p VM from patient on triage line. Said that his b/p is elevated and they want to increased his Clonidine to 0.2mg BID. documented in this encounter Plan of Treatment Not on filedocumented as of this encounter Visit Diagnoses Not on filedocumented in this encounter
--- OUTSIDE RECORDS SUMMARY | 2018-06-02 13:47 | XMS REPORT | Encounter Summary ---
Author Author [facility] Organization [facility] Address Unknown Phone Unavailable Care Team Providers Care Insulation Worker Interior Surface Name Role Phone Yana Chadwick MD 21 Shreyas Puentes MD 3 Eden Hennessy MD PCP Reason for Referral * Consult, Test & Treat (Routine) Referred By Contact Referred To Contact Status Reason Specialty Diagnoses / Procedures Saul Altamirano MD [address] [address] [facility] [address] [address] No Auth Needed Cardiology Diagnoses Essential hypertension Sinus node dysfunction (HCC) NSVT (nonsustained ventricular tachycardia) (HCC) Bruit P rocedures PV RENAL ARTERY DUPLEX SCAN RI DUP-SCAN ARTL ARGENIS ABDL/PEL/SCROT&/RP R ORGN COM * Consult, Test & Treat (Routine) Referred By Contact Referred To Contact Status Reason Specialty Diagnoses / Procedures Saul Altamirano MD [address] [address] [facility] [address] [address] No Auth Needed Cardiology Diagnoses Essential hypertension Sinus node dysfunction (HCC) NSVT (nonsustained ventricular tachycardia) (HCC) Bruit P rocedures PV RENAL ARTERY DUPLEX SCAN RI DUP-SCAN ARTL ARGENIS ABDL/PEL/SCROT&/RP R ORGN COM Reason for Visit * Consult, Test & Treat (Routine) Referred By Contact Referred To Contact Status Reason Specialty Diagnoses / Procedures Saul Altamirano MD [address] [address] [facility] [address] [address] No Auth Needed Cardiology Diagnoses Essential hypertension Sinus node dysfunction (HCC) NSVT (nonsustained ventricular tachycardia) (HCC) Bruit P rocedures PV RENAL ARTERY DUPLEX SCAN RI DUP-SCAN ARTL ARGENIS ABDL/PEL/SCROT&/RP R ORGN COM Encounter Details Care Team Description Date Type Department Saul Altamirano MD [address] [place] [phone] 04/12/2018 [facility] [address] [phone] Social History Date Tobacco Use Types Packs/Day [...] Vital Signs Time Taken Vital Sign Reading 04/12/2018 2:06 PM VISITOR SERVICES ASSISTANT Blood Pressure 152/89 - Pulse - - Temperature - - Respiratory Rate - - Oxygen Saturation - - Inhaled Oxygen - Concentration 04/12/2018 2:06 PM VISITOR SERVICES ASSISTANT Weight 133.1 kg (293 lb 6.4 oz) 04/12/2018 2:06 PM VISITOR SERVICES ASSISTANT Height 170.2 cm (5' 7") 04/12/2018 2:06 PM VISITOR SERVICES ASSISTANT Body Mass Index 45.95 documented in this encounter Functional Status Date [...] May repeat in 5-15 minutes if needed. 09/11/2016 HYDROcodone/acetaminophen TAKE 1 TABLET 0 (NORCO) 7.5/325 mg tablet BY MOUTH FOUR TIMES DAILY 09/03/2017 losartan(+) (COZAAR) 100 Take 1 tablet 90 tablet 3 mg tablet by mouth daily. 03/10/2018 methotrexate sodium Take six 72 tablet 0 (RHEUMATREX) 2.5 mg tablets by tablet mouth every 7 days. nitroglycerin (NITROSTAT) Place 0.4 mg 0 0.4 [...] mg tablet TABLET BY MOUTH TWICE DAILY 04/07/2018 04/19/2018 cloNIDine (CATAPRESS) 0.1 Take one 90 tablet 3 mg tablet tablet by mouth daily. 09/10/2016 04/28/2018 metoprolol XL (TOPROL XL) TAKE ONE 0 200 mg extended release TABLET BY tablet MOUTH TWICE DAILY documented as of this encounter Plan of Treatment Not on filedocumented as of this encounter Procedures Comments Procedure Name Priority Date/Time Associated Diagnosis PV RENAL ARTERY DUPLEX Routine 04/12/2018 Essential hypertension SCAN 2:06 PM VISITOR SERVICES ASSISTANT Sinus node dysfunction (HCC) NSVT (nonsustained ventricular tachycardia) (HCC) Bruit documented in this encounter Results * PV RENAL ARTERY DUPLEX SCAN (04/12/2018 2:06 PM VISITOR SERVICES ASSISTANT) AORTIC PROXIMAL 0.6 m/s OTHER OUTSIDE VELOCITY [...] this encounter Visit Diagnoses Diagnosis Essential hypertension Unspecified essential hypertension Sinus node dysfunction (HCC) Sinoatrial node dysfunction NSVT (nonsustained ventricular tachycardia) (HCC) Paroxysmal ventricular tachycardia Bruit Other symptoms involving cardiovascular system documented in this encounter
--- OUTSIDE RECORDS SUMMARY | 2018-06-02 13:47 | XMS REPORT | Encounter Summary ---
Author Author [facility] Organization [facility] Address Unknown Phone Unavailable Care Team Providers Care Fence Installer Foreman Name Role Phone Yana Chadwick MD 21 Shreyas Puentes MD 3 Eden Hennessy MD PCP Encounter Details Care Team Description Date Type Department Sawyer Dean Sinus node dysfunction (HCC) (Primary Dx); Cardiac device in situ 04/07/2018 Orders Only [facility] [id number] [place] [address] Social History Date Tobacco Use Types Packs/Day [...] Status Date of Assessment Functional Status Response 03/08/2018 Does the patient have a hearing impairment: No 04/05/2018 Does the patient have a visual impairment: Yes - legally blind right eye 03/08/2018 Does the patient have impaired ambulation: Yes 03/08/2018 Does the patient have an activity of daily living No (ADL) impairment: 03/08/2018 Does the patient have an instrumental activity of No daily living (IADL) impairment: Date of Assessment Cognitive Status Response 04/05/2018 Does the patient have a cognitive impairment: No documented as of this encounter Plan of Treatment Order Schedule Name Priority Associated Diagnoses Every 12 Weeks for 99 Occurrences starting 04/07/2018 until 04/07/2024 DEVICE EVALUATION - REMOTE PPM Routine Sinus node dysfunction (HCC) Cardiac device in situ documented as of this encounter Visit Diagnoses Diagnosis Sinus node dysfunction (HCC) - Primary Sinoatrial node dysfunction Cardiac device in situ Unspecified cardiac device in situ documented in this encounter
--- OUTSIDE RECORDS SUMMARY | 2018-06-02 13:47 | XMS REPORT | Encounter Summary ---
Author [facility] Address Unknown Phone Unavailable Care Team Providers Care Radiographer Name Role Phone Yana Chadwick MD 21 Shreyas Puentes MD 3 Eden Hennessy MD PCP Reason for Visit * Reason Comments Pain Encounter Details Care Team Description Date Type [place] [address] [place], [place] [phone] Chronic pain syndrome (Primary Dx); History of lipoma; Sarcoma (HCC) 04/11/2018 Office Visit [facility] [address] [place], [place] [id number] Social History Date Tobacco Use Types Packs/Day [...] Vital Signs Time Taken Vital Sign Reading 04/11/2018 10:31 AM FENCE MANUFACTURE SUPERVISOR Blood Pressure 152/89 04/11/2018 10:31 AM FENCE MANUFACTURE SUPERVISOR Pulse 81 - Temperature - - Respiratory Rate - 04/11/2018 10:31 AM FENCE MANUFACTURE SUPERVISOR Oxygen Saturation 97% - Inhaled Oxygen - Concentration 04/11/2018 10:31 AM FENCE MANUFACTURE SUPERVISOR Weight 136.1 kg (300 lb) 04/11/2018 10:31 AM FENCE MANUFACTURE SUPERVISOR Height 170.2 cm (5' 7") 04/11/2018 10:31 AM FENCE MANUFACTURE SUPERVISOR Body Mass Index 46.99 documented in this [...] Progress Notes * Lexi Amezcua MD - 04/11/2018 10:30 AM FENCE MANUFACTURE SUPERVISOR ONCOLOGY REHAB HISTORY AND PHYSICAL Chief Complaint Patient presents with Left Thigh - Pain Subjective HISTORY OF PRESENT ILLNESS: Mr. Velásquez is a pleasant 47 y.o. male with a history of LLE lipoma s/p resection x4 in [place] with the last in 2015 who is seen on 04/11/2018 at the [facility] for follow up evaluation and treatment of LLE pain following LLE sympathetic nerve block with Dr. Soto (04/05/18) and imaging. Previously, he was prescribed Cymbalta 60 mg [...] bagley. He reports that he has had a deep additional weakness of left lower extremity, and is currently using a single-point cane for ambulation. Has had additional difficulty with his ambulation secondary to cardiac comorbidities, but had a pacemaker put in approximately 1-1/2 years ago with some improvements with his exercise tolerance. At this time he states that his pain is a significant limiting factor for any type of activity. He has increased pain with any movement, and some improvement of his pain with rest and the use of medications. He is previously been on hydrocodone, oxycodone, Xanax, gabapentin. He is continuing his hydrocodone 7.5/325 which he is getting from his primary care physician. He is also prescribed lyrica 75mg twice daily. He reports numbness and tingling in the bottoms of both of his feet, but denies any significant change in this. He has some change in sensation between his left lower extremity in his right to light touch. He also states he always feels cold. No significant low back pain, radicular pattern, [...] file Highest education level: Not on file Social Needs Financial resource strain: Not on file Food insecurity - worry: Not on file Food insecurity - inability: Not on file Transportation needs - medical: Not on file Transportation needs - non-medical: Not on file Occupational History Not on file Tobacco Use Smoking status: Current Every Day Smoker Packs/day: 0.25 Types: Cigarettes Last attempt to quit: 10/18/2016 Years since quittin.4 Smokeless tobacco: Never Used Substance and Sexual [...] BY MOUTH ONCE DAILY 0 cloNIDine (CATAPRESS) 0.1 mg tablet Take one tablet by mouth daily. ( Patient taking differently: Take 0.1 mg by mouth twice daily.) 90 tablet 3 diltiazem CD (CARDIZEM CD) 300 [...] (TOPROL XL) 200 mg extended release tablet TAKE ONE TABLET BY MOUTH TWICE DAILY 0 nitroglycerin (NITROSTAT) 0.[address] 0.4 mg under tongue every 5 minutes as needed for Chest Pain. Max of 3 tablets, call 911. ondansetron (ZOFRAN ODT) 4 mg rapid dissolve tablet DISSOLVE ONE TABLET BY MOUTH EVERY 8 HOURS NEEDED 0 pregabalin (LYRICA) 150 mg capsule Take 1 capsule by mouth twice daily. 60 capsule 3 topiramate (TOPAMAX) 100 mg tablet TAKE ONE TABLET BY MOUTH TWICE DAILY 1 No current facility-administered medications on file prior to visit. Vitals: 04/11/18 1031 BP: 152/89 Pulse: 81 SpO2: 97% Weight: 136.1 kg (300 lb) Height: 170.2 cm (67") Pain Score: [...] able to extend without significant pain. Full ROM bilateral lower extremities. Negative slump testing. Neuro: [...] - no evidence supporting CRPS IMPRESSION: 1. Chronic pain syndrome 2. History of lipoma 3. Sarcoma (HCC) In summary, this is a 47 y.o. year old male with a history of LLE lipoma s/p resection x4 in [place] with the last in 2016. History and physical exam are suggestive CRPS [...] but discussed that we do not do superintendent marine oil terminal opioid mgmt at the spine center. We have tried medication management. His prior prescription for Cymbalta was not covered by insurance, and so we will try amitriptyline 10 mg at night. This may also be helpful with the patient's insomnia. We will increase the Lyrica from 75 mg twice a day to 150 mg twice a day. Interventional options [...] 04/05/18 4. Diagnostic studies: order placed for triple phase bone scan 5. Follow up: will plan to see the patient back for reevaluation as needed. Patient was interested in discussing additional resection with Dr. Puentes. I suggested that there would likely be limited surgical intervention that would be beneficial with his continued symptoms - may even worsen his sx. I did offer to contact Dr. Puentes's office to ask if it would be reasonable/he should schedule an appointment. 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
--- OUTSIDE RECORDS SUMMARY | 2018-06-02 13:47 | XMS REPORT | Encounter Summary ---
Author Author [facility] Organization [facility] Address Unknown Phone Unavailable Care Team Providers Care Merchandise Marker Name Role Phone Yana Chadwick MD 21 Shreyas Puentes MD 3 Eden Hennessy MD PCP Encounter Details Care Team Description Date Type Department Roger Blue MD [address] [phone] 04/28/2018 Hospital [facility] [address] [phone] Social History Date Tobacco Use Types Packs/Day [...] mg tablet TABLET BY MOUTH TWICE DAILY 04/28/2018 05/03/2018 chlorthalidone (HYGROTON) Take one 30 tablet 3 25 mg tablet tablet by mouth daily. 04/25/2018 05/03/2018 cloNIDine (CATAPRESS) 0.2 Take one 180 tablet 3 mg tablet tablet by mouth twice daily. documented as of this encounter Plan of Treatment Not on filedocumented as of this encounter Procedures Comments Procedure Name Priority Date/Time Associated Diagnosis CORTISOL,RANDOM Routine 04/28/2018 Essential hypertension 4:53 PM CDT RENIN-RANDOM Routine 04/28/2018 Essential hypertension 4:53 PM CDT PARATHYROID HORMONE Routine 04/28/2018 Essential hypertension 4:53 PM CDT METANEPHRINES FRACT FREE Routine 04/28/2018 Essential hypertension PLASMA 4:53 PM CDT ALDOSTERONE-RANDOM Routine 04/28/2018 Essential hypertension 4:53 PM CDT CBC Routine 04/28/2018 Essential hypertension 4:53 PM CDT URIC ACID Routine 04/28/2018 Essential hypertension 4:53 PM CDT THYROID STIMULATING Routine 04/28/2018 Essential hypertension HORMONE-TSH 4:53 PM CDT COMPREHENSIVE METABOLIC Routine 04/28/2018 Essential hypertension PANEL 4:53 PM CDT documented in this encounter Results * METANEPHRINES FRACT FREE PLASMA (04/28/2018 4:53 PM CDT) Normetaphrine, 0.54 REFERENCE LAB Plasma Comment: Reference range: <0.90 Unit: nmol/L [facility], [address] [place] [id number] Metanephrine,Pl <0.20 REFERENCE LAB asma Reference range: <0.50 Unit: nmol/L ADDITIONAL INFORMATION This test was developed and its performance characteristics determined by [facility] in a manner consistent with CLIA requirements. This test has not been cleared or approved by the U.S. Food and Drug Administration. [facility], [address] [place] [id number] Specimen Blood Performing Organization Address City/State/Zipcode Phone Number REFERENCE LAB REFERENCE LAB See results for address. * URIC ACID (04/28/2018 4:53 PM CDT) Uric Acid 6.0 4.0 - 8.0 MG/DL [facility] Specimen Blood Performing Organization Address City/State/[facility] Phone Number [facility] [address] [place] [address] * THYROID STIMULATING HORMONE-TSH (04/28/2018 4:53 PM CDT) TSH 1.450 0.35 - 5.00 MCU/ML [facility] Specimen Blood Performing Organization Address [facility] Phone Number [facility] [address] [place] [address] * RENIN-RANDOM (04/28/2018 4:53 PM CDT) Renin-Random 10 3 - 45 pg/mL [facility] Comment: The renin value is a new "direct" assay corresponding to antigen concentration rather than renin activity. The normal ratio for aldosterone to renin is 0.1-3.7. A ratio of greater than 3.7 is suggestive of aldosteronism. Specimen Blood Performing Organization Address [facility] Phone Number MAIN LAB [address] [place] [address] * PARATHYROID HORMONE (04/28/2018 4:53 PM CDT) PTH Hormone 160.2 (H) 10 - 65 PG/ML [facility] Specimen Blood Performing Organization Address [facility] Phone Number [facility] [address] [place] [address] * CORTISOL,RANDOM (04/28/2018 4:53 PM CDT) Cortisol, 6.3 5.0 - 20.0 MCG/DL [facility] Random Specimen Blood Performing Organization Address [facility] Phone Number [facility] [address] [place] [address] * COMPREHENSIVE METABOLIC PANEL (04/28/2018 4:53 PM [...] Total Protein 7.5 6.0 - 8.0 G/DL MAIN LAB Total Bilirubin 0.5 0.3 - 1.2 MG/DL [facility] Albumin 4.2 3.5 - 5.0 G/DL MAIN LAB Alk Phosphatase 95 25 - 110 U/L MAIN LAB AST (SGOT) 18 7 - 40 U/L [facility] CO2 27 21 - 30 MMOL/L [facility] ALT (SGPT) 16 7 - 56 U/L [facility] Anion Gap 5 3 - 12 MAIN LAB eGFR Non >60 >60 mL/min MAIN LAB Comment: [facility] The eGFR is not validated for use in drug dosing adjustments.Continue to use estimated creatinine clearance per dosing reference text.Please contact the Clinical Pharmacist for questions. eGFR >60 >60 mL/min MAIN LAB [facility] Comment: The eGFR is not validated for use in drug dosing adjustments.Continue to use estimated creatinine clearance per dosing reference text.Please contact the Clinical Pharmacist for questions. Specimen Blood Performing Organization Address City/[facility]/Zipcode Phone Number [facility] [address] [place] [address] * CBC (04/28/2018 4:53 PM CDT) White Blood 8.8 4.5 - 11.0 K/UL [facility] Cells RBC 5.29 4.4 - 5.5 M/UL [facility] Hemoglobin 15.5 13.5 - 16.5 GM/DL [facility] Hematocrit 46.4 40 - 50 % MAIN LAB MCV 87.8 80 - 100 FL [facility] MCH 29.2 26 - 34 PG [facility] MCHC 33.3 32.0 - 36.0 G/DL [facility] RDW 14.2 11 - 15 % [facility] Platelet Count 184 150 - 400 K/UL [facility] MPV 11.3 (H) 7 - 11 FL MAIN LAB Specimen Blood Performing Organization Address City/[facility]/Zipcode Phone Number [facility] [address] [place] [address] * ALDOSTERONE-RANDOM (04/28/2018 4:53 PM CDT) Aldosterone, 13 3 - 24 ng/dL MAIN LAB Random Specimen Blood Performing Organization Address City/[facility]/Zipcode Phone Number [facility] [address] [place] [address] documented in this encounter Visit Diagnoses Diagnosis Essential hypertension Unspecified essential hypertension documented in this encounter
--- OUTSIDE RECORDS SUMMARY | 2018-06-02 13:48 | XMS REPORT | Encounter Summary ---
Author Author [facility] Organization [facility] Address Unknown Phone Unavailable Care Team Providers Care Protocol Manager Name Role Phone Yana Chadwick MD 21 Shreyas Puentes MD 3 Eden Hennessy MD PCP Encounter Details Care Team Description Date Type Department SamiShama LPN High risk medication use; Sarcoidosis 03/11/[address] [facility] [address] [place] [address] Social History Date Tobacco Use [...] the patient have a hearing impairment: No 03/08/2018 Does the patient have a visual impairment: Yes 03/08/2018 Does the patient have impaired ambulation: Yes 03/08/2018 Does the patient have an activity of daily living No (ADL) impairment: 03/08/2018 Does the patient have an instrumental activity of No daily living (IADL) impairment: Date of Assessment Cognitive Status Response 03/08/2018 Does the patient have a cognitive impairment: No documented as of this encounter Plan of Treatment Not on filedocumented as of this encounter Procedures Comments Procedure Name Priority Date/Time Associated Diagnosis CBC AND DIFF Routine 03/03/2018 High risk medication use Sarcoidosis COMPREHENSIVE METABOLIC Routine 03/03/2018 High risk medication use PANEL Sarcoidosis documented in this encounter Results * CBC AND DIFF (03/03/2018) White Blood 6.1 OTHER OUTSIDE Cells LAB RBC 5.32 OTHER OUTSIDE LAB Hemoglobin 15.3 OTHER OUTSIDE LAB Hematocrit 47.2 OTHER OUTSIDE LAB MCV 88.7 OTHER OUTSIDE LAB MCH 28.8 OTHER OUTSIDE LAB MCHC 32.4 OTHER OUTSIDE LAB Platelet Count 229 OTHER OUTSIDE LAB MPV 12.9 OTHER OUTSIDE LAB RDW 12.8 OTHER OUTSIDE LAB Neutrophils 70.0 OTHER OUTSIDE LAB Absolute 5,670 OTHER OUTSIDE Neutrophil LAB Count Lymphocytes 19 OTHER OUTSIDE LAB Absolute Lymph 1,539 OTHER OUTSIDE Count LAB Monocytes 6.0 OTHER OUTSIDE LAB Absolute 486 OTHER OUTSIDE Monocyte Count LAB Eosinophil 2.0 OTHER OUTSIDE LAB Absolute 162 OTHER OUTSIDE Eosinophil LAB Count Basophils 2.0 OTHER OUTSIDE LAB Absolute 0 OTHER OUTSIDE Basophil Count LAB Specimen Blood - Blood Narrative Performed At Performing Organization Address City/State/Zipcode Phone Number OTHER OUTSIDE LAB * COMPREHENSIVE METABOLIC PANEL (03/03/2018) Sodium 140 OTHER OUTSIDE LAB Potassium 4.1 OTHER OUTSIDE LAB Chloride 105 OTHER OUTSIDE LAB CO2 29 OTHER OUTSIDE LAB Blood Urea 15 OTHER OUTSIDE Nitrogen LAB Creatinine 0.99 OTHER OUTSIDE LAB Glucose 99 OTHER OUTSIDE LAB Calcium 9.4 OTHER OUTSIDE LAB Total Protein 7.0 OTHER OUTSIDE LAB Total Bilirubin 0.8 OTHER OUTSIDE LAB Albumin 4.0 OTHER OUTSIDE LAB Alk Phosphatase 100 OTHER OUTSIDE LAB AST (SGOT) 20 OTHER OUTSIDE LAB ALT (SGPT) 17 OTHER OUTSIDE LAB eGFR Non 90 OTHER OUTSIDE LAB Moroccan eGFR 105 OTHER OUTSIDE Moroccan LAB Specimen Blood - Blood Narrative Performed At Performing Organization Address City/State/Zipcode Phone Number OTHER OUTSIDE LAB documented in this encounter Visit Diagnoses Diagnosis High risk medication use Encounter for long-term (current) use of other medications Sarcoidosis documented in this encounter
--- OUTSIDE RECORDS SUMMARY | 2018-06-02 13:48 | XMS REPORT | Encounter Summary ---
Author Author [facility] Organization [facility] Address Unknown Phone Unavailable Care Team Providers Care Floors Buffer Name Role Phone Yana Chadwick MD 21 Shreyas Puentes MD 3 Eden Hennessy MD PCP Encounter Details Care Team Description Date Type Department Saul Altamirano MD [address] [phone] 04/07/2018 Hospital [facility] [address] [phone] Social History Date Tobacco Use Types Packs/Day [...] Comments Procedure Name Priority Date/Time Associated Diagnosis DEVICE EVALUATION - PPM Routine 04/07/2018 Other myocarditis, 9:25 AM GUEST ASSOCIATE unspecified chronicity (HCC) Sinus node dysfunction (HCC) Essential hypertension documented in this encounter Results * DEVICE EVALUATION - PPM (04/07/2018 9:25 AM GUEST ASSOCIATE) Generator [employer]onic OTHER OUTSIDE Textiles And Clothing Teacher LAB Generator Model [id number] OTHER OUTSIDE # LAB Generator [id number] OTHER OUTSIDE Serial # LAB Generator 02/20/16 OTHER OUTSIDE Implnat Date LAB Generator Yes OTHER OUTSIDE Investigational LAB Device Mode aair/dddr OTHER OUTSIDE LAB Mode Switch On OTHER OUTSIDE Status LAB Lower Rate 60 OTHER OUTSIDE Limit LAB Mode Switch 171 OTHER OUTSIDE (bpm) LAB Atrial Lead [employer] OTHER OUTSIDE Textiles And Clothing Teacher LAB Atrial Lead 407,652 OTHER OUTSIDE Model # LAB Atrial Lead [id number] OTHER OUTSIDE Serial # LAB Atrial Lead 02/20/16 OTHER OUTSIDE Implant Date LAB Atrial Lead Yes OTHER OUTSIDE Investigational LAB RV Lead [employer] OTHER OUTSIDE Textiles And Clothing Teacher LAB RV Lead Model # 5076-58 OTHER OUTSIDE LAB RV Lead Serial [id number] OTHER OUTSIDE # LAB RV Lead Implant [...] By LAB Device [employer] OTHER OUTSIDE [place] LAB Transmitter Compatible Known Diagnosed No OTHER [...] Monitoring? LAB -VS% 65.4 OTHER OUTSIDE LAB -SAIL CUTTER% <1 OTHER OUTSIDE LAB -VS% 34.5 OTHER OUTSIDE LAB AP-SAIL CUTTER% <1 OTHER OUTSIDE LAB # Mode S. [...] OTHER OUTSIDE LAB [04/07/2018 9:27:38 AM - VAUGHN FULTON] In office programming for dual chamber Medtronic PPM. Device function: Appears normal. Presenting EGM shows ASVS NSR 77 bpm. Events noted: Atrial:0. Ventricular:4 SVT-ST episodes, longest 59 seconds. 167 to [address] Programming changes: RV amplitude 2.0V to 1.5V. A and RV safety margin 2.0V to 1.5V. RV minimum adapted amplitude 2.0V to 1.5V. Pt no longer follows with can coverer in [place], [place]. Sarah Henry flagged to enroll in [employer]. Reviewed with MPE in clinic and routed check for cosign. Performing Organization Address City/State/Zipcode Phone Number OTHER OUTSIDE LAB documented in this encounter Visit Diagnoses Diagnosis Other myocarditis, unspecified chronicity (HCC) Sinus node dysfunction (HCC) Sinoatrial node dysfunction Essential hypertension Unspecified essential hypertension documented in this encounter
--- OUTSIDE RECORDS SUMMARY | 2018-06-02 13:48 | XMS REPORT | Encounter Summary ---
Author Author [facility] Organization [facility] Address Unknown Phone Unavailable Care Team Providers Care Rabbler Name Role Phone Yana Chadwick MD 21 Shreyas Puentes MD 3 Eden Hennessy MD PCP Reason for Referral * Consult, Test & Treat (Routine) Referred By Contact Referred To Contact Status Reason Specialty Diagnoses / Procedures Leander Tovar MD [address] [facility] Lvl [address] [place] [phone] [facility] [address] [place] [address] New Request Specialty Services Pulmonology Diagnoses Required CPAP (continuous positive airway pressure) dependence MELI (obstructive sleep apnea) Scheduling Instructions Please schedule with sleep team next available Reason for Visit * Reason Comments General Question Encounter Details Care Team Description Date Type Department Leander Tovar MD 1999 [facility] Lvl [address] [place] [phone] General Question 04/05/2018 Telephone [facility] [address] [place] [address] Social History Date Tobacco Use [...] Telephone Encounter - Beto Reynaga RN - 04/05/2018 2:51 PM RECEIVING BARN CUSTODIAN Pt lvm requesting a call back. Called and spoke to pt. He states he thought that the MTX was not making any difference, but since stopping medication he feels his symptoms are definitely worse. States he is having more chest pain, increased blood pressure which is inducing headaches. Pt has not updated Dr. Vargas's office yet. Informed pt that Dr. Tovar has reached out to Dr. Vargas, but has not heard back yet. Highly recommend pt calling Dr. Vargas's office. Pt also state that he has spoke to his PCP's office and she thinks she can get him set up for the PET scan if they get him admitted to the hospital. Explained to pt that the scan that is needed is very specific and is the only facility around that does the cardiac Pet. Explained that we have called numerous facilities in the past with no luck. Pt also mentioned that Dr. Tovar was going to get him in to see a sleep doctor for CPAP, but has not heard anything yet. Informed pt that RN will follow up with this. RN will also notify Dr. Tovar of his worsening symptoms and let pt know if he has any new orders or recommendations. Either way pt needs to f/u with Dr. Vargas. Pt verbalized understanding and appreciative of the return call. IVING BARN CUSTODIAN documented in this encounter Plan of Treatment Order Schedule Name Priority Associated Diagnoses Ordered: 04/05/2018 AMB REFERRAL TO PULMONARY Routine CPAP (continuous positive airway pressure) dependence MELI (obstructive sleep apnea) documented as of this encounter Visit Diagnoses Diagnosis CPAP (continuous positive airway pressure) dependence - Primary Dependence on other enabling machine MELI (obstructive sleep apnea) Obstructive sleep apnea (adult) (pediatric) documented in this encounter
--- OUTSIDE RECORDS SUMMARY | 2018-06-02 13:48 | XMS REPORT | Encounter Summary ---
Author Author [facility] Organization [facility] Address Unknown Phone Unavailable Care Team Providers Care Foundry Operator Name Role Phone Yana Chadwick MD 21 Shreyas Puentes MD 3 Eden Hennessy MD PCP Reason for Visit * Reason Comments Worsening Symptoms Encounter Details Care Team Description Date Type Department Leander Tovar MD [address] [facility] [address] [place] [address] Worsening Symptoms 03/18/2018 Telephone [facility] [address] [place] [address] Social History Date Tobacco Use [...] encounter Miscellaneous Notes * Telephone Encounter - Leander Tovar MD - 03/18/2018 4:50 PM [employer] I contact the patient to notify him that despite appeal, we are not going to be able to get cardiac PET/CT approved through his insurance. He reports that there has really been no change in his cardiac symptoms over the past 6 months on methotrexate. He continues to have frequent heart palpitations. He does not have any significant presyncope, but he does still feel fatigued. Normally, following 6 months on methotrexate, most patients would experience some degree of improvement. We discussed that there is the possibility that the cardiac PET/CT could be a false positive. Since we do not necessarily have an objective way to assess response to treatment, I would be in favor of stopping methotrexate at this time. If he has worsening symptoms 2-3 months after discontinuing methotrexate, then this may be an indication that it was doing something. I will also forward this to Dr. Vargas to see if he has any other thoughts. However, without any clear evidence of improvement, and knowing the high false positive rate of cardiac PET/CT scans, I do not think continued immunosuppressive medication is the best course of action without a way to monitor for response. He also reports that blood pressure continues to be uncontrolled with diastolic blood pressure readings as high as 117. He is also having morning headaches. These could be symptoms of untreated obstructive sleep apnea. He reports that he has not used a CPAP machine in the past year. His CPAP had been infected with bugs. He tried to have the machine replaced by his DME. They had replaced it On the CPAP a few months earlier, this recorded it as a fix equivalent to a new machine. Consequently, they would not issue a new CPAP machine, which is why he has been nonadherent to therapy. He is no longer seeing the original prescriber of the CPAP machine, who is Dr. Fletcher close to his home. He would like to see a sleep specialist at . We will place a referral to 1 of our sleep colleagues to see what they can do to help facilitate getting him back on CPAP therapy. I will defer to Dr. Vargas to see if he has any other thoughts, but this time, I recommended he go ahead and discontinue methotrexate. He was appreciative of the call. [employer] documented in this encounter Plan of Treatment Not on filedocumented as of this encounter Visit Diagnoses Not on filedocumented in this encounter
--- OUTSIDE RECORDS SUMMARY | 2018-06-02 13:48 | XMS REPORT | Encounter Summary ---
Author Author [facility] Organization [facility] Address Unknown Phone Unavailable Care Team Providers Care Diver Assistant Name Role Phone Yana Chadwick MD 21 Shreyas Puentes MD 3 Eden Hennessy MD PCP Reason for Referral * Radiology Services (Routine) Referred By Contact Referred To Contact Status Reason Specialty Diagnoses / [place] [address] [place] [address] New Request Radiology Diagnoses History of lipoma Sarcoma (HCC) Complex regional pain syndrome type 2 of left lower extremity P rocedures NM BONE SPECT * Radiology Services (Routine) Referred By Contact Referred To Contact Status Reason Specialty Diagnoses / [place] [address] [place] [address] New Request Radiology Diagnoses History of lipoma Sarcoma (HCC) Complex regional pain syndrome type 2 of left lower extremity P rocedures NM BONE SPECT Reason for Visit * Radiology Services (Routine) Referred By Contact Referred To Contact Status Reason Specialty Diagnoses / [place] [address] [place] [address] Radiology [address] [place] [address] No Auth Needed Radiology Diagnoses History of lipoma Sarcoma (HCC) Complex regional pain syndrome type 2 of left lower extremity P rocedures NM BONE SCAN WHOLEBODY NM BONE SCAN THREE PHASE Encounter Details Care Team Description Date Type [place] [address] [place] [address] [phone] 03/09/2018 [facility] [address] [place] [address] Social History Date Tobacco Use Types Packs/Day [...] mg tablet TABLET BY MOUTH TWICE DAILY 10/01/2017 04/07/2018 folic acid (FOLVITE) 1 mg Take 1 mg 130 tablet 3 tablet daily, except for the day Methotrexate is taken, hold 12 hours and increase to 5 mg once per week 09/10/2016 04/28/2018 metoprolol XL (TOPROL XL) TAKE ONE 0 200 mg extended release TABLET BY tablet MOUTH TWICE DAILY documented as of this encounter Plan of Treatment Not on filedocumented as of this encounter Procedures Comments Procedure Name Priority Date/Time Associated Diagnosis NM BONE SCAN WHOLEBODY Routine 03/09/2018 History of lipoma 2:52 PM [employer]OR [employer] Sarcoma (HCC) Complex regional pain syndrome type 2 of left lower extremity NM BONE SPECT Routine 03/09/2018 History of lipoma 2:52 PM [employer] Sarcoma (HCC) Complex regional pain syndrome type 2 of left lower extremity documented in this encounter Results * NM BONE SPECT (03/09/2018 2:52 PM [employer]) Impressions Performed At 1. No scintigraphic evidence [...] Interface, Radiant Results - 03/09/2018 3:56 PM [employer] BONE SCINTIGRAPHY (THREE-PHASE) Clinical indication: 47-year-old male, [...] connective and other soft tissue, site unspecified Complex regional pain syndrome type 2 of left lower extremity documented in this encounter
--- OUTSIDE RECORDS SUMMARY | 2018-06-02 13:48 | XMS REPORT | Encounter Summary ---
Author Author [facility] Organization [facility] Address Unknown Phone Unavailable Care Team Providers Care Rating Clerk Name Role Phone Yana Chadwick MD 21 Shreyas Puentes MD 3 Eden Hennessy MD PCP Reason for Visit * Reason Comments Pain Encounter Details Care Team Description Date Type Department Chapin Soto MD [address] [facility] [place], [place] [id number] Complex regional pain syndrome type 1 of left lower extremity (Primary Dx) 04/05/2018 Procedure visit [facility] [address] [place] [id number] Social History Date Tobacco Use Types Packs/Day [...] Vital Signs Time Taken Vital Sign Reading 04/05/2018 11:09 AM OUTSIDE LABORER Blood Pressure 160/95 04/05/2018 11:09 AM OUTSIDE LABORER Pulse 88 04/05/2018 10:57 AM OUTSIDE LABORER Temperature 36.7 C (98.1 F) 04/05/2018 10:06 AM OUTSIDE LABORER Respiratory Rate 16 04/05/2018 11:09 AM OUTSIDE LABORER Oxygen Saturation 99% - Inhaled Oxygen - Concentration 04/05/2018 10:06 AM OUTSIDE LABORER Weight 127 kg (280 lb) 04/05/2018 10:06 AM OUTSIDE LABORER Height 170.2 cm (5' 7") 04/05/2018 10:06 AM OUTSIDE LABORER Body Mass Index 43.85 documented in this encounter Functional Status Date [...] this encounter Patient Instructions * Patient Instructions* Mora Amezcua RN - 04/05/2018 10:00 AM OUTSIDE LABORER Procedure Completed Today: Other LEFT LUMBAR SYMPATHETIC NERVE BLOCK Important information following your procedure today: You [...] p.m., on weekends or holidays please call [phone] and ask to have the resident physician long lines operator for the physician paged or go to [...] medications were used: Bupivicaine and Contrast Dye IDE LABORER documented in this encounter Progress Notes * Chapin Soto MD - 04/05/2018 10:00 AM OUTSIDE LABORER [facility] INTERVENTIONAL PAIN PROCEDURE HISTORY AND PHYSICAL Chief Complaint Patient presents with Left Leg - Pain HISTORY OF PRESENT ILLNESS: Mr. Velásquez presents for repeat lumbar sympathetic block, the last injection helped 50% for 2 months. Past Medical History: Diagnosis Date Anxiety Cancer [...] [Venom-Wasp] ANAPHYLAXIS Aspirin RASH Penicillins RASH Vitals: 04/05/18 1006 BP: 167/90 Pulse: 84 Resp: 16 Temp: 36.9 C (98.4 F) TempSrc: Oral SpO2: 99% Weight: 127 kg (280 lb) Height: 170.2 cm (67") REVIEW OF SYSTEMS: 10 point ROS obtained and negative except for left leg pain. PHYSICAL EXAM: General: Alert and oriented, very pleasant female. HEENT showed extraocular muscles were intact and no other abnormalities. Unlabored breathing. Regular rate and rhythm on CV exam. Left lower extremity allodynia and weakness IMPRESSION: 1. Complex regional pain syndrome type 1 of left lower extremity PLAN: Left lumbar sympathetic block IDE LABORER * Brooklynn Heaton RN - 04/05/2018 10:00 AM OUTSIDE LABORER Pain Procedure Plan Of Care Risk of injury related to procedure Patient identification, allergies verified, fall precautions implemented Risk of injury and impaired skin integrity Positioning devices applied as appropriate for procedure, patient transported with staff assistance Management of Pain Pain assessment completed on arrival, PAR scoring following procedure and at discharge, sedation administered as ordered, patient positioned for comfort Risk of anxiety related to procedure and disease process Patient education on procedure and expectations, provide coping support to patient, provide relaxation techniques Outcomes: The patient is free of injury during and following their procedure. Skin is intact and free of bruising. The patients pain is managed during their stay. Alleviation of patient anxiety exhibited. IDE LABORER documented in this encounter Procedure Notes * Chapin Soto MD - 04/05/2018 10:00 AM OUTSIDE LABORER Associated Order(s): Nerve Block Post-Procedure Diagnose(s): Complex regional pain syndrome type [...] given by: patient Alternatives discussed: alternative treatment Monon Protocol: Relevant documents: relevant documents present and verified Test results: test results available and properly labeled Imaging studies: imaging studies available Required items: required blood products, implants, devices, and special equipment available Site marked: the operative site was marked Time out: Immediately prior to procedure a "time out" was called to verify the correct patient, procedure, equipment, retail support associate and site/side marked as required Procedures Details: Prep: 2% chlorhexidine Patient position: prone Guidance: fluoroscopy Medications administered: 8 mL bupivacaine PF 0.25 % Outcome: Pain improved Estimated blood loss: none or minimal Specimens: none Patient tolerated the procedure well with no immediate complications. Pressure was applied, and hemostasis was accomplished. IDE LABORER documented in this encounter Plan of Treatment Not on filedocumented as of this encounter Procedures Comments Procedure Name Priority Date/Time Associated Diagnosis MO INJECTION ANES Routine 04/05/2018 Complex regional pain LMBR/THRC PARAVERTBRL 10:00 AM OUTSIDE LABORER syndrome type 1 of left SYMPATHETIC lower extremity documented in this encounter Results * Nerve Block (04/05/2018 10:00 AM OUTSIDE LABORER) Narrative Performed At Chapin Soto MD 04/05/20184:30 PM OTHER OUTSIDE LAB Nerve Block Nerve: lumbar sympathetic Laterality: left Consent: Consent obtained: verbal and written Consent given by: patient Alternatives discussed: alternative treatment Monon Protocol: Relevant documents: relevant documents present and verified Test results: test results available and properly labeled Imaging studies: imaging studies available Required items: required blood products, implants, devices, and special equipment available Site marked: the operative site was marked Time out: Immediately prior to procedure a "time out" was called to verify the correct patient, procedure, equipment, retail support associate and site/side marked as required Procedures Details: Prep: 2% chlorhexidine Patient position: prone Guidance: fluoroscopy Medications administered: 8 mL bupivacaine PF 0.25 % Outcome: Pain improved Performing Organization Address City/State/Zipcode Phone Number OTHER OUTSIDE LAB documented in this encounter Visit Diagnoses Diagnosis Complex regional pain syndrome type 1 of left lower extremity - Primary documented in this encounter Administered Medications Action Date Dose Rate Site Medication Order MAR Action 04/05/2018 10:49 AM OUTSIDE LABORER 10 mL bupivacaine PF (MARCAINE) 0.25 % Given injection 10 mL 10 mL, Block, ONCE, 1 dose, 04/05/18 at 1100 04/05/2018 4:30 PM OUTSIDE LABORER 8 mL bupivacaine PF (MARCAINE) 0.25 % Given injection 8 mL 8 mL, Injection, ONCE PRN, 1 dose, Starting 04/05/18 at 1630, Until 04/05/18 at 1630 04/05/2018 10:37 AM OUTSIDE LABORER 2.5 mL iopamidol IT 200 (ISOVUE-M 200) Given injection 2.5 mL 2.5 mL, Epidural, ONCE, 1 dose, 04/05/18 at 1045, NOTE: This is a HIGH ALERT Medication., documented in this encounter
--- OUTSIDE RECORDS SUMMARY | 2018-06-02 13:48 | XMS REPORT | Encounter Summary ---
Author Author [facility] Organization [facility] Address Unknown Phone Unavailable Care Team Providers Care Chemistry Technical Officer Name Role Phone Yana Chadwick MD 21 Shreyas Puentes MD 3 Eden Hennessy MD PCP Reason for Referral * Consult, Test & Treat (Routine) Referred By Contact Referred To Contact Status Reason Specialty Diagnoses / Procedures Saul Altamirano MD [address] [place] [address] Pending Review Procedures REQUEST FOR CARDIOLOGY APPOINTMENT * Consult, Test & Treat (Routine) Referred By Contact Referred To Contact Status Reason Specialty Diagnoses / Procedures Saul Altamirano MD [address] [place] [address] [facility] [address] [place] [address] No Auth Needed Cardiology Diagnoses Essential hypertension Sinus node dysfunction (HCC) NSVT (nonsustained ventricular tachycardia) (HCC) Bruit P rocedures PV RENAL ARTERY DUPLEX SCAN [place] DUP-SCAN ARTL ARGENIS ABDL/PEL/SCROT&/RP R ORGN COM * Consult, Test & Treat (Routine) Referred By Contact Referred To Contact Status Reason Specialty Diagnoses / Procedures Saul Altamirano MD [address] [place] [address] New Request Procedures REQUEST FOR CARDIOLOGY APPOINTMENT * Consult, Test & Treat Referred By Contact Referred To Contact Status Reason Specialty Diagnoses / Procedures Saul Altamirano MD [address] [place] [address] [place] [address] No Auth Needed Cardiology Procedures REQUEST FOR CARDIOLOGY APPOINTMENT Reason for Visit * Reason Comments Cardiac Eval myocarditis, sinis node dysfunction, essential hypertension * Consult, Test & Treat Referred By Contact Referred To Contact Status Reason Specialty Diagnoses / Procedures Saul Altamirano MD [address] [place] [address] [place] [address] No Auth Needed Cardiology Procedures REQUEST FOR CARDIOLOGY APPOINTMENT Encounter Details Care Team Description Date Type Department Saul Altamirano MD [address] [place] [address] [phone] Cardiac Eval (myocarditis, sinis node dysfunction, essential hypertension) 04/07/2018 [place] [address] Social History Date Tobacco Use Types Packs/Day [...] Vital Signs Time Taken Vital Sign Reading 04/07/2018 11:31 AM ACROBATIC DANCER Blood Pressure 140/102 04/07/2018 11:31 AM ACROBATIC DANCER Pulse 73 - Temperature - - Respiratory Rate - - Oxygen Saturation - - Inhaled Oxygen - Concentration 04/07/2018 11:31 AM ACROBATIC DANCER Weight 136.1 kg (300 lb) 04/07/2018 11:31 AM ACROBATIC DANCER Height 170.2 cm (5' 7") 04/07/2018 11:31 AM ACROBATIC DANCER Body Mass Index 46.99 documented in this [...] this encounter Patient Instructions * Patient Instructions* Cindy Swan RN - 04/07/2018 11:00 AM ACROBATIC DANCER start clonidine 0.1 mg daily - this prescription will be sent to your pharmacy Check your BP (Blood Pressure) daily and vary the time of day you check it. Try to follow a low salt diet. Exercise helps with your blood pressure. Try to get at least 30 minutes of moderate intensity exercise at least 4 days a week. Call our office or your PCP if your blood pressure remains at or above 140/90 mm Hg consistently. If you have questions about your blood pressure readings, please contact the office. Schedule a Renal Artery Duplex before you leave the office today. Schedule appointment in our Hypertension Clinic as soon as possible resume remote device monitoring follow up with Dr Altamirano in 6 months with device check In order to provide you the best care possible we ask that you follow up as below: For NON-URGENT questions please contact us through your [facility] account. For all medication refills please contact your pharmacy or send a request through [facility]. For all questions that may need to be addressed urgently please call the nursing triage line at [phone] Wednesday - Wednesday 8- only. Please leave a detailed message with your name, date of , and reason for your call. To schedule an appointment call [phone]. Please allow 10-15 business days for the results of any testing to be reviewed. Please call our office if you have not heard from a nurse within this time frame. BATIC DANCER documented in this encounter Progress Notes * Saul Altamirano MD - 04/07/2018 11:00 AM ACROBATIC DANCER Date of Service: 04/07/2018 Trent Velásquez Jr. is a 47 y.o. male. HPI I had the pleasure of seeing your patient Trent Velásquez Jr. in the [facility] as a part of the [facility] office today for follow up regarding his Ventricular Tachycardia. He is typically followed and was referred by my colleagues and friends Dr. Valdez and Dr. Bourgeois, his primary cardiologists. Mr. Velásquez is an exceptionally pleasant 47 y.o. Male. He does not currently work, as he is on disability. The past medical history and data below has been reviewed and updated by me with new events for today's visit. His PMHx briefly includes:NS-VT; Sxic SND-sinus bradycardia; S/P Medtronic MRI Compatible DDDR PPM Implant (02/2016-at OSH by Dr. 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 Puentes at [facility]; Obesity; Tobacco abuse NOTE--pthas stainless steel filter shunts in his eyes and was told by his eye doctor that he is unable to have an MRI. NOTE--patient's pacemaker implantation preceded by nearly a year has diagnosis of myocarditis. Notepatient had an episode of "SVT" documented through his device in the remote past without recurrence He STATES he has been feeling markedly fatigued and lacking energy. He also reports having intermittent dizziness upon laying backward. He has not followed up with Dr. Bourgeois regarding his pacemaker. He reports that his blood pressure today is on the lower end of his numbers. He states he has an appointment with a sleep specialist, who is helping him obtain a CPAP. He states he is exercising very little secondary to hand and leg pain. He admits that he is often laying in bed and sedentary. He claims compliance with his medications. Unfortunately, he continues to smoke. He states he is weaning himself off, but still smoking. He denies any chest discomfort, shortness of breath, palpitations, lightheadedness, near syncope or syncope, PND or orthopnea. FHx, SHx and ROS documented and I have reviewed, with some pertinent features to include: He is a history of "heart disease" in his parentsFather at 61, Uncle in his 40s. Other details unknown. He is a Current Smoker. Most pertinent ROS is included/discussed throughout the note, e.g. HPI and A/P. ASSESSMENT AND PLAN: -- Marked Accelerated Hypertension -- Myocarditis by Cardiac PET (01/27/17) -- Tachycardia/SVT-Atrial Tachycardia -- NS-VT -- Sxic SND-Sinus Bradycardia --Medtronic MRI Compatible DDDR PPM Implant (02/2016-at OSH by Dr. Valdez) -- Prior Syncope with documented Bradycardia via prior Medtronic LinQ Implantable Monitor (03/2015, which was removed with PPMimplantation) -- Hyperlipidemia -- High Cholesterol -- OSAS -- Migraines -- Tobacco Abuse Mr. Velásquez primary complaint this is fatigue and chronic pain. He apparently spends most of his day in bed. He is adamant about being compliant with his antihypertensive medications he had despite very remarkable dosing and therapy he still reports blood pressures are markedly elevated including on a rare occasion a diastolic up to 117 mmHg and a systolic in the 180+ millimeters mercury range. On exam today, he had a questionable renal artery bruit and therefore I have recommended pursuing a renal artery duplex. He does not have room for further titration of his antihypertensives in the current state. Therefore, we will add Clonidine 0.1 mg daily to his medical regimen anticipate we will need to increase it further with persistent accelerated hypertension. I have asked him to keep in phone contact with us. I also asked him to present to the ER if he has blood pressure readings with systolics above 190 and diastolics above 115 mmHg. Of note if he winds up being admitted to the hospital because of his accelerated hypertension I would also pursue a PET scan to ensure that the myocarditis is not again active with high SUV readings I have also asked him to undergo evaluation/consultation in our Hypertension Clinic. There is a clear concern given the amount of antihypertensive therapy is on, despite his claim of absolute compliance. Regarding his Myocarditis--this was a diagnosis by cardiac PET scan. He had sinus node dysfunction as well as some NSVT. It is certainly possible that the PET scan was falsely positive. However, he did have other conduction issues. I do however agree with Dr. Tovar continuing his methotrexate without a follow -up PET scan to confirm improvement is not recommended. I am remarkably disappointed that his insurance company is "blocking" what we feel to be important evaluation in the patient's medical care and management. His PET scan from 01/2017 showed the basal lateral wall of the left ventricle with a maximum SUV of 17.95 basal septal wall of the left ventricle she had a maximum SUV of 13.57. His pacemaker function is stable/good. We will assume remote monitoring and follow-up of his pacer going forward. Regarding his atrial arrhythmias, he has had episodes of what anticipate her sinus tachycardia not atrial tachycardia but will continue to monitor accordingly. We also discussed smoking cessation. Have asked him to pick a target date and quit accordingly and consider participating in smoking cessation programs such as going to [facility] if necessary. I also anticipate that his untreated sleep [...] improve a lot of his healthcare issues. PLAN: -- We will initiate Clonidine 0.1 mg daily -- We will have him follow up with Dr. Blue in the Hypertension Clinic -- We will obtain a Renal Ultrasound given his renal bruits and to rule out renal artery stenosis -- We will assume care of his remote monitoring -- I asked him to call our office with any new or recurrent symptoms. Mr. Velásquez was educated regarding plan of care. He was instructed to call our office with any questions or concerns, as well as to notify us of any new or worsening symptoms. He verbalized understanding. I appreciate the opportunity to participate in the care of your patient. Please do not hesitate to contact me directly if you have any questions or further insights into his care. I have scheduled his follow-up with me in 6 month(s). DETAILED UPDATED PMHx: -- 03/2015: Cardiac Catheterization by Dr. Calloway [facility] -- 03/2015: Medtronic LinQ Implantable Monitor implantation by Dr. Bourgeois -- Bradycardia detected with symptoms of lightheadedness and syncope/near syncope through his ILR prompting dual-chamber pacemaker implantation.-- 02/2016 : DDDR Medtronic permanent pacemaker implantationsee above 12/2016patient's pacemaker interrogation documents of nonsustained VT. Therefore referred for further evaluation and treatment. Also there are episodes of SVT but reportedly were suggestive of possible atrial tachycardia or atrial flutter with a cycle length of 400 ms prompting EP consultation. Patient remains on Cardizem and Toprol-XL. Device interrogation demonstrates: -- 06/2016--5 seconds of NSVT with a cycle length starting at 400 MS accelerating to 360 MS with VA dissociation present. -- 12/15/16--"tachycardia" 1: 1 conduction Adriving the EGM morphology appears to be similar to sinus. Likely sinus tachycardia. There is no sudden onset or termination noted. Psych length is 390 MS. --12/17/16-- 5 seconds in duration of nonsustained VT with a cycle length of 280 ms that is regular EGMs clearly document what appears to be brief episode and has a sudden onset. There is VA dissociation present. There is a clear change in EGM morphology as well. -- 01/14/17: Initial EP Consultation: Pt had at least 2 episodes of NSVT that were brief and ASxic with clear VA dissociation --> recommended MRI but pt has stainless steel filter eye shunts and is unable to undergo MRI per Opthalmologist. Cardiac PET scan was therefore pursued. ELR issued, increased VT detect to 160, obtained TSH, Mg+2, K+ and Ca+2 and instructed pt to follow up CPAP settings -- 01/18/17: Event Monitor: With no arrhythmias and no symptom activated events. -- 01/27/17: Pt underwent Cardiac PET scan -->findings reflective of severe myocarditis -- 02/14/17: Progress Notes (Dr. Altamirano): Pt underwent PET Scanning given his documented NSVT, conduction system disease, sinus tachycardia, at with normal echocardiogram, normal cardiac catheterization, negative stress imaging. The PET Scan results reported: Findings reflective of severe myocarditis. The Results stated: That there was heterogenous increased uptake involving the left ventricular myocardium. The basal lateral wall of the left ventricle showeda maximum SUV of 17.95 (index 111). The basal septal wall of the left ventricle showeda maximum SUV of 13.57 (index 105). There was No metabolically active mediastinal or hilar nodes are identified. No metabolically active pulmonary opacities are seen. The Blood pool mean SUV=1.53, maximum SUV=2.09. His pacing leads were noted. Plan was tocontact the import coordination and production head, Dr. Leander Lopez specializes in sarcoidosis, etc., have had worked in more urgently for an office visit to to assess the need for acute therapy. --I spoke with Dr. TOVAR. He will be seeing Mr. Velásquez sometime early next week. I also spoke with the patient himself about these results and to be expecting a call from Dr. TOVAR. I also contacted the patient's primary news content specialist Dr. Bourgeois and let them know of the results and the plan accordingly. He was appreciative that Dr. Tovar would be seeing the patient. -- 03/08/17: OV (Dr. Altamirano): Initiated Lisinopril 20 mg dailyfor BP control and pt was instructed to follow up with Dr. Tovar or a Fitness Supervisor -- 04/28/17: Pulmonary/myocarditis/? sarcoidosis Consultation with Dr. Leander Tovarsomewhat lower suspicion for sarcoidosis, however given his high SUV score treatment was recommended. Typically would have utilize prednisone but with his glaucoma issues including the needs for stents etc. was felt not to be an ideal option. Therefore METHOTREXATE WAS INITIATED,with folic acid supplement as needed. Plan was if no improvement myocarditis with an SUV less than 6 following 4 months of treatment and we consider additional therapeutic options. Also encouraged CPAP compliance for his sleep apnea and tobacco cessation. -- 06/25/17: OV (Dr. Altamirano): Encouraged pt to treat OSAS, recommended continued follow up with Dr. Tovar regarding myocarditis. -- 08/06/17: EP-SPRING MAKER OV (Elizabeth): Pt reported brief, fleeting chest discomfort. pain appeared to be pleuritic in nature and very atypical for angina. Further cardiology workup was not recommended at this time -- 09/03/17: Echocardiogram: Normal LV function by preliminary report. Full report pending. -- 09/03/17: OV (Dr. Altamirano): Stopped Lisinopril and initiated Losartan 100 mg daily with Triamterene-HCTZ 37.5 / 25 mg daily due to cough on Lisinopril. We also asked him to follow up with his Fitness Supervisor regarding his Methotrexate. -- 09/16/17: Stopped Dyazide and advised hydration as pt had elevated creatinine , BUN and eGFR Vitals: 04/07/18 1131 BP: (!) 140/102 Pulse: 73 Weight: 136.1 kg (300 lb) Height: 1.702 m (5' 7") Body mass index is 46.99 kg/m. Past Medical History Patient Active Problem List Diagnosis Date Noted Class 3 obesity in adult 08/06/2017 Coxsackie viruses 04/28/2017 Sarcoma ([facility]) 04/28/2017 Tobacco abuse 04/28/2017 Myocarditis ([facility]) 02/26/2017 NSVT (nonsustained ventricular tachycardia) ([facility]) 02/26/2017 Cardiac device in situ 01/14/2017 Sinus node dysfunction ([facility]) 11/02/2016 Dr. Valdez S/p PPM implant- Advisa 02/20/16 PSVT (paroxysmal supraventricular tachycardia) ([facility]) 11/02/2016 Hypertension 11/02/2016 MELI (obstructive sleep apnea) 11/02/2016 History of lipoma 09/30/2016 Pain of left thigh 09/30/2016 Pain of left lower leg 09/30/2016 Review of Systems Constitution: Positive for malaise/fatigue and weight gain. HENT: Negative. Eyes: Negative. Cardiovascular: Positive for chest pain, claudication, irregular heartbeat and leg swelling. Respiratory: Negative. Endocrine: Negative. Hematologic/Lymphatic: Negative. Skin: Negative. Musculoskeletal: Positive for muscle weakness, myalgias and neck pain. Gastrointestinal: Negative. Genitourinary: Negative. Neurological: Positive for headaches and vertigo. Psychiatric/Behavioral: Negative. Allergic/Immunologic: Negative. Physical Exam Constitutional: He is in no acute distress, resting comfortably. Skin/Integument: Warm and dry. Eyes: PERRL, sclera are non-icteric and no xanthelasmas noted. ENT: Hearing is intact, Oropharynx is clear and moist. Heme/Lym/Immun: Supple neck, without thyromegaly. Respiratory-Pulmonary/Chest: Effort normal and breath sounds normal. No respiratory distress or accessory muscle use. No obvious tracheal deviation. Clear to auscultation bilaterally. Cardiovascular: No evidence of increased jugular venous pressure, carotids are 2+/4+ equal bilaterally, with bilateral renal bruits. Regular rhythm, S1, S2. I do not appreciate any significant murmur today. No heaves, thrills or rubs. Musc/Skeletal-Extremities: Without significant peripheral edema. With what appears to be full ROM. Device Site: Is in his left infraclavicular region and well-healed. Neuro: Patient is alert and oriented to person, place, and time. Psych: Patient does not appear anxious, he appears appropriate, with normal non -pressured speech and what appears to be appropriate judgement Cardiovascular Studies ECG today demonstrates atrial paced rhythm at 73 bpm with intrinsic conduction. Full device check performed with reprogramming which I have extensively reviewed. Changes, if done, as discussed below and is detailed in other dictation/note. 35% atrial paced; less than 0.1% ventricular paced; for "fast AMV events and 09/03/17. No "VT" events. No A. fib events. Heart rate histogram with good distribution. Last episode of "SVT was on March 12. Less than 15 seconds. He had an episode on January 10 in November 30 in November 26 the longest and 59 seconds of the bunch. The episode from March 12 anticipate is all sinus tachycardia although I cannot definitively rule out an atrial tachycardia cycle length is 370 ms. It is 1: 1 conduction. We do not have an onset or termination to definitively rule out an atrial tachycardia. But I suspect it is all sinus tach. We do not have EGMs of his other events since we do not follow him on a regular basis. Problems Addressed Today Encounter Diagnoses Name Primary? Essential hypertension Yes Sinus node dysfunction (HCC) NSVT (nonsustained ventricular tachycardia) (HCC) Bruit Current Medications (including today's revisions) ALPRAZolam (XANAX) 1 mg tablet TAKE ONE TABLET BY MOUTH TWICE DAILY FOR ANXIETY atorvastatin (LIPITOR) 20 mg tablet TAKE ONE TABLET BY MOUTH ONCE DAILY cloNIDine (CATAPRESS) 0.1 mg tablet Take one tablet by mouth daily. diltiazem CD (CARDIZEM CD) 300 mg [...] TAKE ONE TABLET BY MOUTH TWICE DAILY nitroglycerin (NITROSTAT) 0.[address] 0.4 mg under tongue every 5 minutes as needed for Chest Pain. Max of 3 tablets, call 911. ondansetron (ZOFRAN ODT) 4 mg rapid dissolve tablet DISSOLVE ONE TABLET BY MOUTH EVERY 8 HOURS NEEDED pregabalin (LYRICA) 150 mg capsule Take 1 capsule by mouth twice daily. topiramate (TOPAMAX) 100 mg tablet TAKE ONE TABLET BY MOUTH TWICE DAILY Documentation recorded by Jeanmarie Lilly, acting as scribe for Saul Altamirano M.D. BATIC DANCER documented in this encounter Plan of Treatment Order Schedule Name Priority Associated Diagnoses Ordered: 04/07/2018 ECG 12-LEAD Routine Essential hypertension Sinus node dysfunction (HCC) NSVT (nonsustained ventricular tachycardia) (HCC) Expected: 04/07/2019, Expires: 04/07/2019 DEVICE EVALUATION - [facility] Routine Essential hypertension Sinus node dysfunction (HCC) NSVT (nonsustained ventricular tachycardia) (HCC) documented as of this encounter Procedures Comments Procedure Name Priority Date/Time Associated Diagnosis ECG-SCAN 04/07/2018 12:00 AM ACROBATIC DANCER documented in this encounter Results * PV RENAL ARTERY DUPLEX SCAN (04/12/2018 2:06 PM ACROBATIC DANCER) AORTIC PROXIMAL 0.6 m/s OTHER OUTSIDE VELOCITY [...] OUTSIDE LAB * ECG-SCAN (04/07/2018 12:00 AM ACROBATIC DANCER) Narrative Performed At Ordered by an unspecified provider. documented in this encounter Visit Diagnoses Diagnosis Essential hypertension - Primary Unspecified essential hypertension Sinus node dysfunction (HCC) Sinoatrial node dysfunction NSVT (nonsustained ventricular tachycardia) (HCC) Paroxysmal ventricular tachycardia Bruit Other symptoms involving cardiovascular system documented in this encounter
--- OUTSIDE RECORDS SUMMARY | 2018-06-02 13:48 | XMS REPORT | Encounter Summary ---
Author Author [facility] Address Unknown Phone Unavailable Care Team Providers Care Income Tax Preparer Name Role Phone Yana Chadwick MD 21 Shreyas Puentes MD 3 Eden Hennessy MD PCP Encounter Details Care Team Description Date Type Department Chapin Soto MD [address] [place] [address] 04/05/2018 [facility] [id number] [place] [address] [id number] Social History Date Tobacco Use Types Packs/Day [...] Associated Diagnosis FLUORO GUIDANCE FOR SPINE Routine 04/05/2018 Pain INJ RAD 10:50 AM MANAGING DIRECTOR documented in this encounter Results * FLUORO GUIDANCE FOR SPINE INJ RAD (04/05/2018 10:50 AM MANAGING DIRECTOR) Narrative Performed At This order has been auto finalized and does not contain a result. CYRUS MCWILLIAMS Performing Organization Address City/State/Zipcode Phone Number CYRUS MCWILLIAMS documented in this encounter Visit Diagnoses Diagnosis Pain Generalized pain documented in this encounter
--- OUTSIDE RECORDS SUMMARY | 2018-06-02 13:49 | XMS REPORT | Encounter Summary ---
Author Author [facility] Organization [facility] Address Unknown Phone Unavailable Care Team Providers Care Game Warden Name Role Phone Yana Chadwick MD 21 Shreyas Puentes MD 3 Eden Hennessy MD PCP Reason for Referral * Pain Authorization (Routine) Referred By Contact Referred To Contact Status Reason Specialty Diagnoses / Procedures Elizabeth Pollack, BRIDGER [address] Sherley Cruz MD [facility] [place] [address] Zzicc Spn Anesth Pain [address] [place] [address] Closed Anesthesia Pain Diagnoses Complex regional pain syndrome type 1 of left lower extremity Neuropathic pain P rocedures [facility] Reason for Visit * Reason Comments Other 8 wk fuv Pain Pain Encounter Details Care Team Description Date Type Department Chapin Soto MD [address] [place] [facility] [place] [address] [phone] Complex regional pain syndrome type 1 of left lower extremity (Primary Dx); Neuropathic pain 03/08/2018 Office Visit [facility] [address] [place] [address] Social History Date Tobacco Use Types Packs/Day [...] Vital Signs Time Taken Vital Sign Reading - Blood Pressure - - Pulse - - Temperature - 03/08/2018 2:43 PM YOUTH CORRECTIONS OFFICER Respiratory Rate 22 - Oxygen Saturation - - Inhaled Oxygen - Concentration 03/08/2018 2:43 PM YOUTH [employer]RECTIONS OFFICER Weight 123.8 kg (273 lb) 03/08/2018 2:43 PM YOUTH [employer]RECTIONS OFFICER Height 170.2 cm (5' 7") 03/08/2018 2:43 PM YOUTH CORRECTIONS OFFICER Body Mass Index 42.76 documented in this encounter Functional Status Date [...] as of this encounter Progress Notes * Chapin Soto MD - 03/08/2018 3:30 PM [employer]RE[employer] OFFICER [facility] CLINIC NOTE SUBJECTIVE: Patient presents to clinic for chronic left lower extremity pain. Patient reports a reduction of about half of patient's pain for approximately 1 day from lumbar sympathetic block on 11/23/17 and similar reduction of relief of pain for about 1 week from second injection 12/28/17. 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, schedule for bone scan tomorrow Pain is located in anterior groin Radiating pain to anterior bagley Pain is constant Rated as 8/10 Described as aching, stabbing Numbness/tingling noted in bilateral feet d/t neuropathy Worsened by lying on left side, standing, walking Can walk about 1 block before needing rest Partially relieved by rest, prescribed medications Patient currently taking [place] 2 tabs, about 5-6 tabs per day, last dose taken this AM, he states he has been taking more than prescribed due to the severity of the pain Denies constipation, itching, or somnolence Currently taking Gabapentin 300mg BID and Topamax 100mg daily - patient states previously tried amitriptyline without relief and insurance not willing to cover Cymbalta. +allodynia in LLE +muscle cramping Denies strength loss Patient reports prior extensive PT sessions with minimal relief noted. Hx of spine surgery: sarcoma tumor resections Denies current use of antibiotics or blood thinners. Review of Systems Constitutional: Negative. HENT: Negative. Eyes: Positive for photophobia. Respiratory: Positive for cough and shortness of breath. Cardiovascular: Negative. Gastrointestinal: Negative. Endocrine: Positive for cold intolerance. Genitourinary: Negative. Musculoskeletal: Positive for myalgias. Skin: Negative. Allergic/Immunologic: Negative. Neurological: Negative. Hematological: Negative. Psychiatric/Behavioral: Negative. All other systems reviewed and are negative. Current Outpatient Medications: ALPRAZolam (XANAX) 1 mg tablet, TAKE ONE TABLET BY MOUTH TWICE DAILY FOR ANXIETY, Disp: , Rfl: 0 atorvastatin (LIPITOR) 20 mg tablet, TAKE ONE TABLET BY MOUTH ONCE DAILY, Disp: , Rfl: 0 diltiazem CD (CARDIZEM CD) 300 mg capsule, Take 300 mg by mouth every morning., Disp: , Rfl: EPINEPHrine(+) (EPIPEN) 1 mg/mL injection pen (2-Pack), Inject 0.3 mg into the muscle once as needed. Inject 0.3 mg (1 Pen) into thigh if needed for anaphylactic reaction. May repeat in 5-15 minutes if needed., Disp: , Rfl: folic acid (FOLVITE) 1 mg tablet, Take 1 mg daily, except for the day Methotrexate is taken, hold 12 hours and increase to 5 mg once per week, Disp: 130 tablet, Rfl: 3 HYDROcodone/acetaminophen (NORCO) 7.5/325 mg tablet, TAKE 1 TABLET BY MOUTH FOUR TIMES DAILY, Disp: , Rfl: 0 losartan(+) (COZAAR) 100 mg tablet, Take 1 tablet by mouth daily., Disp: 90 tablet, Rfl: 3 methotrexate sodium (RHEUMATREX) 2.5 mg tablet, Take six tablets by mouth every 7 days., Disp: 24 tablet, Rfl: 0 metoprolol XL (TOPROL XL) 200 mg extended release tablet, TAKE ONE TABLET BY MOUTH TWICE DAILY, Disp: , Rfl: 0 nitroglycerin (NITROSTAT) 0.4 mg tablet, Place 0.4 mg under tongue every 5 minutes as needed for Chest Pain. Max of 3 tablets, call 911., Disp: , Rfl: ondansetron (ZOFRAN ODT) 4 mg rapid dissolve tablet, DISSOLVE ONE TABLET BY MOUTH EVERY 8 HOURS NEEDED, Disp: , Rfl: 0 pregabalin (LYRICA) 150 mg capsule, Take 1 capsule by mouth twice daily., Disp: 60 capsule, Rfl: 3 topiramate (TOPAMAX) 100 mg tablet, TAKE ONE TABLET BY MOUTH TWICE DAILY, Disp: , Rfl: 1 Allergies Allergen Reactions Adhesive Tape (Rosins) BLISTERS Wasps [Venom-Wasp] ANAPHYLAXIS Aspirin RASH Penicillins RASH Physical Exam Vitals: 03/08/18 1443 BP: (!) (P) 146/93 Pulse: (P) 81 Resp: 22 SpO2: (P) 98% Weight: 123.8 kg (273 lb) Height: 170.2 cm (67") Oswestry Total Score:: 58 Pain Score: Eight Body mass index is 42.76 kg/m. General: Alert and oriented, pleasant male. HEENT showed extraocular muscles were intact and no other abnormalities. Unlabored breathing, symmetrical chest expansion. Regular rate and rhythm on CV exam. Abdomen soft, nondistended, nontender, round. 5/5 strength in bilateral upper and right lower extremity, 4/5 strength noted in left lower extremity. Facet loading negative. SLR negative bilaterally. Sensation is intact to light touch and equal in the upper and lower extremities. +allodynia noted in LLE, sensation intact, +2 pitting edema noted in LLE, no apparent temperate or color change change. IMPRESSION: 1. Complex regional pain syndrome type 1 of left lower extremity 2. Neuropathic pain PLAN: 1. Will schedule repeat of lumbar sympathetic block to target left lower extremity pain. 2. Discussed pharmacological management by PCP, encouraged continuance of conservative therapy of NSAIDs and physical therapy. 3. May consider increase of Gabapentin if neuropathic pain persists after injection. 4. Plan for follow-up 2 months after procedure. ATTENDING PHYSICIAN ADDENDUM: I personally interviewed and/or examined the patient. I have reviewed the history and ROS outlined by the PARISA Elizabeth Pollack APRN The patient presents with (HPI) left leg CRPS On examination there is allodynia and swelling in the left leg My impression is CRPS My plan is schedule a left lumbar sympathetic block H CORRECTIONS OFFICER documented in this encounter Plan of Treatment Order Schedule Name Priority Associated Diagnoses Expected: 03/08/2018, Expires: 06/06/2018 [facility] Routine Complex regional pain syndrome type 1 of left lower extremity Neuropathic pain documented as of this encounter Visit Diagnoses Diagnosis Complex regional pain syndrome type 1 of left lower extremity - Primary Neuropathic pain Neuralgia, neuritis, and radiculitis, unspecified documented in this encounter
--- OUTSIDE RECORDS SUMMARY | 2018-06-02 13:49 | XMS REPORT | Encounter Summary ---
Author Author [facility] Organization [facility] Address Unknown Phone Unavailable Care Team Providers Care Law Firm Consultant Name Role Phone Yana Chadwick MD 21 Shreyas Puentes MD 3 Eden Hennessy MD PCP Reason for Visit * Reason Comments Medication Refill Encounter Details Care Team Description Date Type Department Leander Tovar MD [address] [facility] [address] [place] [address] [phone] 03/06/2018 Refill [facility] [address] [place] [address] Social History Date Tobacco Use [...]
--- OUTSIDE RECORDS SUMMARY | 2018-06-02 13:49 | XMS REPORT | Encounter Summary ---
Author Author [facility] Organization [facility] Address Unknown Phone Unavailable Care Team Providers Care Medical Billing And Coding Specialist Name Role Phone Yana Chadwick MD 21 Shreyas Puentes MD 3 Eden Hennessy MD PCP Reason for Visit * Radiology Services (Routine) Referred By Contact Referred To Contact Status Reason Specialty Diagnoses / [place] [address] [place] [address] Radiology [address] [facility] [address] [place] [address] No Auth Needed Radiology Diagnoses History of lipoma Sarcoma (HCC) Complex regional pain syndrome type 2 of left lower extremity P rocedures NM BONE SCAN WHOLEBODY NM BONE SCAN THREE PHASE Encounter Details Care Team Description Date Type [place] [address] [place], [place] [id number] 03/09/2018 Hospital [facility] [address] [place], [place] [id number] Social History Date Tobacco Use Types Packs/Day [...] Name Priority Date/Time Associated Diagnosis NM BONE SPECT Routine 03/09/2018 History of lipoma 2: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 No scintigraphic evidence [...] Interface, Radiant Results - 03/09/2018 3:56 PM METAL ENGRAVER BONE SCINTIGRAPHY (THREE-PHASE) Clinical indication: 47-year-old male, [...] left lower extremity documented in this encounter Administered Medications Action Date Dose Rate Site Medication Order MAR Action 03/09/2018 10:50 AM METAL ENGRAVER 26.5 millicuries RP DX Tc-99m medronate (MDP) injection Given 25 millicurie 25 millicurie, Intravenous, ONCE, 1 dose, Wed03/09/18 at 1145 documented in this encounter
--- OUTSIDE RECORDS SUMMARY | 2018-06-02 13:55 | XMS REPORT ---
Author Author ALENA ÁLVAREZ Organization [facility] Address [address] [place] [address] Care Team Providers Care Blue Print Control Clerk Name Role Phone ALENA ÁLVAREZ Unavailable PROBLEMS Type Condition ICD9-CM Code GFV53-UO Code Onset Dates Condition Status SNOMED Code Problem Hyperlipidemia E78.5 Active 89625043 Problem Myocarditis, unspecified chronicity, 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 Active 40888070 Problem Chronic pain G89.29 Active 06197561 Problem Sleep apnea, obstructive G47.33 Active 57928588 Problem Blindness and low vision H54.10 Active 541647430 Problem HTN (hypertension) I10 Active 84849604 Problem Body mass index (BMI) of 40.0-44.9 in adult Z68.41 Active 069100039 Problem Other male erectile dysfunction N52.8 Active 210237247 Problem Mitral valve prolapse I34.1 Active 378463301 Problem Open-angle glaucoma of both eyes H40.10X0 Active 75427196 Problem Post-traumatic stress disorder, chronic F43.12 Active 029749980 Problem CAD (coronary artery disease) I25.10 Active 65089317 Problem Arrhythmia as indication for cardiac pacemaker replacement I49.9 Active 70178519 Problem Environmental allergies Z91.09 Active 017539045 Problem Morbid (severe) obesity due to excess calories E66.01 Active 501579311 Problem Primary insomnia F51.01 Active 9155546 Problem 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 Active 747889497 Problem Migraine without aura and without status migrainosus, not intractable G43.009 Active 432050103 Problem Chronic pain syndrome G89.4 Active 910927718 Problem Resistant hypertension I10 Active 00409078 Problem Anxiety F41.9 Active 66982919 Problem Other chronic pain G89.29 Active 15563195 Problem Chronic tension headaches G44.229 Active 649295586 Problem Major depressive disorder, recurrent, moderate F33.1 Active 85086557 Problem Problems related to release from half-way Z65.2 Active 990146889719020 Problem Sarcoidosis D86.9 Active 79150579 Problem Insomnia disorder with non-sleep disorder mental comorbidity G47.00 Active 11184682 Problem Supraventricular tachycardia I47.1 Active 3185431 ALLERGIES No Information ENCOUNTERS Encounter Location Date Diagnosis [facility] [id number] [place] [address] 66778- 3148 June, [facility] [address] 01413- 8923 June, [facility] [address] 62962- 9379 May, [facility] [address] 52276- 0511 May, HTN (hypertension) I10 [place] [address] 22870- 8922 May, Other chronic pain G89.29 ; Pain in left knee M25.562 and 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 [facility] [address] 35244- 6900 May, [facility] [address] 32199- 8078 May, Flank pain R10.9 [facility] [address] 20906- 7426 May, [facility] [address] 69824- 2598 May, HTN (hypertension) I10 [facility] [id number] [place] [address] 61372- 7840 May, Resistant hypertension I10 [facility] [address] 25543- 0242 May, [facility] [id number] [place] [address] 56336- 7825 May, Post-traumatic stress disorder, unspecified F43.10 ; Major depressive disorder, recurrent, moderate F33.1 and Problems related to release from half-way Z65.2 [facility] [id number] [address] 0156 May, HTN (hypertension) I10 [facility] [id number] [place] [address]- 1078 May, [facility] [id number] [place] [address] 86056- 9090 Apr, [facility] [id number] [place] [address], [place] [address]- 1114 Apr, [facility] [id number] [place] [address] 25196- 5009 Apr, HTN (hypertension) I10 [facility] [id number] [address]- 3668 Apr, [facility] [id number] [place] [address] 89512- 1899 Apr, [facility] [id number] [address]- 3275 Apr, [facility] [id number] [place] [address] 98573- 4970 Apr, [facility] [address], [place] [address]- 2447 Apr, [facility] [address] [place] [address] 36467- 7463 Apr, HTN (hypertension) I10 [facility] [address] [place] [address]- 4728 Apr, [facility] [id number] [place] [address] 99075- 4758 Apr, [facility] [address], [place] [address]- 3980 Apr, [facility] [id number] [place] [address] 67764- 6914 19 Apr, 2018 [facility] [id number] [place] [address] 32263- 6855 18 Apr, 2018 Left leg pain M79.605 [facility] [id number] [place] [address] 84234- 0500 18 Apr, 2018 [facility] [id number] [place] [address] 79113- 7336 15 Apr, 2018 [facility] [id number] [place] [address] 43715- 6816 14 Apr, 2018 Acute bronchitis J20.9 [facility] [id number] [place] [address] 82150- 5383 14 Apr, 2018 [facility] [id number] [place] [address] 25684- 3644 14 Apr, 2018 [facility] [id number] [place] [address] 06143- 4501 Apr, [facility] [id number] [place] [address] 99231- 9658 Apr, [facility] [id number] [place] [address] 64081- 4524 07 Apr, 2018 Morbid obesity E66.01 [facility] [id number] [place] [address] 33502- 3076 Apr, [facility] [id number] [place] [address] 40449 -9819 Apr, Contact dermatitis, unspecified contact dermatitis type, unspecified trigger L25.9 and Morbid obesity E66.01 [facility] [id number] [place] [address] 66649 -9978 02 Apr, 2018 [facility] [id number] [place] [address] 18307- 5898 Apr, [facility] [id number] [place] [address] 85635- 9785 Mar, [place] [id number] [place] [address] 61507- 5710 Mar, Post-traumatic stress disorder, unspecified F43.10 ; Major depressive disorder, recurrent, moderate F33.1 and Problems related to release from half-way Z65.2 [place] [id number] [place] [address] 54102- 7991 Mar, Left leg pain M79.605 [place] [address] 50372- 1499 14 Mar, 2018 Arrhythmia as indication for cardiac pacemaker replacement I49.9 ; HTN (hypertension) I10 ; Primary insomnia F51.01 ; Chronic pain syndrome G89.4 ; 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 and Myocarditis, unspecified chronicity, 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 [place] [id number] [place] [address] 47344- 8702 Mar, Post-traumatic stress disorder, unspecified F43.10 ; Major depressive disorder, recurrent, moderate F33.1 and Problems related to release from half-way Z65.2 [place] [id number] [place] [address] 97177- 6997 Feb, Open-angle glaucoma of both eyes H40.10X0 [place] [id number] [place] [address] 08865- 3680 Feb, Post-traumatic stress disorder, chronic F43.12 ; Anxiety F41.9 ; Problems related to release from half-way Z65.2 and BMI 40.0-44.9, adult Z68.41 [place] [id number] [place] [address] 17780- 1348 Feb, Left leg pain M79.605 [place] [id number] [place] [address] 56041- 1651 Feb, [place] [id number] [place] [address] 94961- 3904 Jan, Left leg pain M79.605 [place] [id number] [place] [address] 82170- 0235 Jan, [place] [address] 00219- 5457 Jan, Post-traumatic stress disorder, unspecified F43.10 ; Major depressive disorder, recurrent, moderate F33.1 and Problems related to release from half-way Z65.2 [place] [address] 30433- 8235 Jan, Insomnia disorder with non-sleep disorder mental comorbidity G47.00 ; Post-traumatic stress disorder, chronic F43.12 ; Anxiety F41.9 and BMI 40.0-44.9, adult Z68.41 [place] [id number] [place] [address] 43968- 0371 14 Jan, 2018 Encounter for long-term (current) use of other medications Z79.899 [place] [id number] [place] [address] 40341- 1155 Jan, [place] [id number] [place] [address] 52932- 6372 Dec, Left leg pain M79.605 [place] [id number] [place] [address] 07896- 7920 Dec, Encounter for long-term (current) use of other medications Z79.899 [place] [id number] [place] [address] 39372- 2180 Dec, [facility] [id number] [place] [address] 30577 -5976 19 Dec, 2017 Tooth pain K08.89 ; Active dental caries K02.9 and BMI 40.0 -44.9, adult Z68.41 [facility] [id number] [place] [address] 86642 -3691 15 Dec, 2017 Acute bronchitis J20.9 and BMI 40.0-44.9, adult Z68.41 [facility] [address], [place] [address]- 7593 15 Dec, 2017 [facility] [id number] [place] [address] 30668- 5445 Dec, [facility] [address] [place] [address] 95727- 9382 Dec, [facility] [id number] [place] [address] 07008- 7831 Dec, [facility] [address] [place] [address] 26558- 8197 Nov, [facility] [id number] [place] [address] 50598- 3533 Nov, Left leg pain M79.605 [place] [address] [place] [id number] [id number] Nov, [facility] [address] [place] [address] 08318- 3370 Nov, Encounter for long-term (current) use of other medications Z79.899 [facility] [id number] [place] [address] 20053- 5247 Nov, [facility] [id number] [place] [address] 57262- 8903 Nov, Left leg pain M79.605 [facility] [address] [place] [address] [id number] Oct, Dental examination Z01.20 [facility] [address] [place] [address] 82602- 2135 Oct, Insomnia disorder with non-sleep disorder mental comorbidity G47.00 [facility] [address], [place] [address]- 7559 Oct, Post-traumatic stress disorder, chronic F43.12 ; Insomnia disorder with non-sleep disorder mental comorbidity G47.00 and BMI 40.0-44.9, adult Z68.41 [facility] [id number] [place] [address] 50046- 0573 19 Oct, 2017 [facility] [address] 91055 -6343 18 Oct, 2017 Insect bite (nonvenomous), left lower leg, initial encounter S80.862A ; Bitten or stung by nonvenomous insect and other nonvenomous arthropods, initial encounter W57.XXXA and BMI 40.0-44.9, adult Z68.41 [facility] [address] 38033- 4520 06 Oct, 2017 Left leg pain M79.605 [place] [address] 33831- 7151 04 Oct, 2017 Post-traumatic stress disorder, unspecified F43.10 ; Major depressive disorder, recurrent, moderate F33.1 and Problems related to release from half-way Z65.2 [facility] [id number] [place] [address] 43544- 0416 2017 Arrhythmia as indication for cardiac pacemaker replacement I49.9 [place] [address] 12280- 0203 Sep, [place] [address] 36034- 6164 Sep, HTN (hypertension) I10 [place] [address] 30013- 6274 17 Sep, 2017 [place] [address] 29547- 2419 Sep, 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 ; Chronic pain G89.29 ; Supraventricular tachycardia I47.1 and Body mass index (BMI) of 40.0-44.9 in adult Z68.41 [place] [address] 46657- 4719 Sep, [place] [address], [place] [address]- 3467 Sep, Sarcoidosis D86.9 [facility] [id number] [place] [address] 00257- 5636 Sep, Sarcoidosis D86.9 [facility] [id number] [place] [address] 42004- 6935 Sep, [facility] [id number] [place] [address] 23040- 9150 Sep, [facility] [id number] [place] [address] 66904- 7174 Sep, [facility] [id number] [place] [address] 25638- 9757 Sep, [facility] [id number] [place] [address] 74681- 8261 Sep, Left leg pain M79.605 [facility] [id number] [place] [address] 23420- 8316 Sep, HTN (hypertension) I10 [facility] [id number] [place] [address] 70675- 9546 Sep, [facility] [address], [place] [address]- 7952 Sep, Post-traumatic stress disorder, unspecified F43.10 ; Major depressive disorder, recurrent, moderate F33.1 and Problems related to release from half-way Z65.2 [facility] [address], [place] [address]- 9896 Sep, [facility] [id number] [place] [address] 57706- 1886 Aug, [facility] [address], [place] [address] 2546 Aug, Sarcoidosis D86.9 [facility] [address] [place] [address] 43786- 0744 Aug, Sarcoidosis D86.9 [place] [address] [place] [address] 83369- 4392 Aug, HTN (hypertension) I10 [place] [id number] [place] [address] 56642- 2666 18 Aug, 2017 Post-traumatic stress disorder, unspecified F43.10 ; Major depressive disorder, recurrent, moderate F33.1 and Problems related to release from half-way Z65.2 [place] [id number] [place] [address] 34977- 1227 11 Aug, 2017 [place] [id number] [place] [address] 47276- 2792 Aug, Left leg pain M79.605 [place] [id number] [place] [address] 51335- 0734 Jul, Post-traumatic stress disorder, chronic F43.12 ; Anxiety F41.9 ; Problems related to release from half-way Z65.2 and BMI 40.0-44.9, adult Z68.41 [place] [id number] [place] [address] 96830- 4232 20 Jul, 2017 HTN (hypertension) I10 ; Body mass index (BMI) of 40.0-44.9 in adult Z68.41 ; Acute swimmer''s ear of both sides H60.333 and Chronic pain G89.29 [place] [id number] [place] [address] 99327- 0526 19 Jul, 2017 Glaucoma H40.9 [place] [address] [place] [address] 36605- 9347 14 Jul, 2017 [place] [id number] [place] [address] 50033- 8184 13 Jul, 2017 Sarcoidosis D86.9 [place] [id number] [place] [address] 19330- 4332 12 Jul, 2017 Left leg pain M79.605 [place] [id number], [place] [address]- 1290 Jul, Sarcoidosis D86.9 [facility] [id number] [place] [address] 24679- 1626 Jul, Post-traumatic stress disorder, unspecified F43.10 ; Major depressive disorder, recurrent, moderate F33.1 and Problems related to release from half-way Z65.2 [facility] [id number] [place] [address] 99985- 9149 June, [facility] [id number] [place] [address] 18306 -5705 June, Sore throat J02.9 and BMI 40.0-44.9, adult Z68.41 [facility] [id number] [place] [address] 39222- 7736 June, [facility] [id number] [place] [address] 69163- 9974 June, [facility] [id number] [place] [address] 63945- 5270 June, [facility] [id number] [place] [address] 59184- 9389 June, Left leg pain M79.605 [facility] [address], [place] [address]- 2103 June, Sarcoidosis D86.9 [facility] [id number] [place] [address] 54842- 4610 June, [facility] [address], [place] [address]- 6751 June, [facility] [id number] [place] [address] 65135- 5549 June, Left leg pain M79.605 [facility] [address], [place] [address]- 8341 May, [facility] [id number] [address]- 5532 May, [facility] [id number] [place] [address] 37202- 0927 May, [facility] [id number] [place] [address] 96897- 9191 May, Left leg pain M79.605 [place] [id number] [place] [address] 30913- 8029 May, Post-traumatic stress disorder, unspecified F43.10 ; Major depressive disorder, recurrent, moderate F33.1 and Problems related to release from half-way Z65.2 [place] [id number] [place] [address] 76931- 0380 04 May, 2017 Chronic pain G89.29 ; Anxiety F41.9 ; Chest pain, unspecified type R07.9 and BMI 40.0-44.9, adult Z68.41 [place] [id number] [place] [address] 36097- 6570 30 Apr, 2017 [place] [id number] [place] [address] 60292- 2370 29 Apr, 2017 Left leg pain M79.605 [place] [id number] [place] [address] 51902- 5782 27 Apr, 2017 Post-traumatic stress disorder, unspecified F43.10 ; Problems related to release from half-way Z65.2 ; Anxiety F41.9 and BMI 40.0-44.9 , adult Z68.41 [place] [address] [place] [address] 04352- 3577 Apr, [place] [id number] [place] [address] 07845- 2772 Apr, Left leg pain M79.605 [place] [address] [place] [address] 77307- 4308 Apr, Post-traumatic stress disorder, unspecified F43.10 ; Major depressive disorder, recurrent, moderate F33.1 and Problems related to release from half-way Z65.2 [place] [address] 92669- 0394 12 Apr, 2017 [place] [address] 39908- 4467 12 Apr, 2017 Chronic pain G89.29 ; 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 [address] [id number] Mar, Dental examination Z01.20 [place] [address] 29814- 7546 Mar, [facility] [address] 76067 -2941 20 Mar, 2017 Cough R05 ; Viral gastroenteritis A08.4 and BMI 40.0-44.9, adult Z68.41 [place] [address] 12809- 9396 19 Mar, 2017 Left leg pain M79.605 [place] [address] 25744- 6948 06 Mar, 2017 Post-traumatic stress disorder, unspecified F43.10 ; Major depressive disorder, recurrent, moderate F33.1 and Problems related to release from half-way Z65.2 [place] [address] 09822- 4320 Feb, Left leg pain M79.605 [place] [address] [id number] [place] [address]27- 2151 Feb, [place] [address] [address] [place] [id number] [place] [address] 83997- 0500 Feb, BMI 40.0-44.9, adult Z68.41 ; Chronic pain syndrome G89.4 ; Migraine without aura and without status migrainosus, not intractable G43.009 ; Mitral valve prolapse I34.1 and 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 [place] [address] [address] [place] [id number] [place] [address] 42133- 3174 Feb, Post-traumatic stress disorder, chronic F43.12 ; Anxiety F41.9 ; Problems related to release from half-way Z65.2 and BMI 40.0-44.9, adult Z68.41 [place] [address] [address] [place] [id number] [place] [address] 97363- 3948 Feb, Post-traumatic stress disorder, unspecified F43.10 ; Major depressive disorder, recurrent, moderate F33.1 and Problems related to release from half-way Z65.2 [place] [address] [address] [place] [id number] [place] [address] 91425- 2648 Feb, Left leg pain M79.605 [place] [address] [address] [place] [id number] [place] [address] 34088- 7081 Jan, Post-traumatic stress disorder, unspecified F43.10 ; Major depressive disorder, recurrent, moderate F33.1 and Problems related to release from half-way Z65.2 [place] [id number] [place] [address] 33467- 7785 Jan, [place] [address] [address] [place] [id number] [place] [address] 94138- 8222 Jan, [place] [address] [address] [place] [id number] [place] [address] 33416- 3305 Jan, Anxiety F41.9 [place] [address] [address] [place] [id number] [place] [address] 21936- 8572 Jan, Left leg pain M79.605 [facility] [id number] [place] [address] 03577- 2626 Dec, Left leg pain M79.605 [facility] [id number] [place] [address] 13435- 5292 Dec, [facility] [address] [place] [id number] [place] [address] 10865- 2035 Dec, Post-traumatic stress disorder, unspecified F43.10 ; Major depressive disorder, recurrent, moderate F33.1 and Problems related to release from half-way Z65.2 [facility] [address] [place] [id number] [place] [address] 87926- 9508 31 Nov, 2016 Chronic pain G89.29 and Anxiety F41.9 [facility] [address] [place] [id number] [place] [address] 61011- 7353 24 Nov, 2016 Chronic pain G89.29 and Anxiety F41.9 [facility] [address] [place] [address] [id number] [place] [address] 28483- 2386 16 Nov, 2016 Post-traumatic stress disorder, unspecified F43.10 ; Major depressive disorder, recurrent, moderate F33.1 and Problems related to release from half-way Z65.2 [facility] [address] [place] [address] 55076- 1759 09 Nov, 2016 Other abnormal findings in specimens from other organs, systems and tissues R89.8 ; Other male erectile dysfunction N52.8 ; Body mass index (BMI) of 40.0-44.9 in adult Z68.41 and Morbid (severe) obesity due to excess calories E66.01 [facility] [address] [place] [address] 35423- 9720 02 Nov, 2016 Post-traumatic stress disorder, unspecified F43.10 ; Major depressive disorder, recurrent, moderate F33.1 and Problems related to release from half-way Z65.2 [facility] [address] [id number] Oct, Dental examination Z01.20 [facility] [place] [address], [place] [address] 2133 28 Oct, 2016 [place] [address], [place] [address] 9969 Oct, Encounter for immunization Z23 [facility] [place] [address], [place] [address] 6635 Oct, Chronic pain G89.29 ; Anxiety F41.9 ; Arrhythmia as indication for cardiac pacemaker replacement I49.9 and Glaucoma H40.9 [facility] [place] [address], [place] [address] 2994 Oct, Anxiety F41.9 ; Post-traumatic stress disorder, chronic F43.12 and Problems related to release from half-way Z65.2 [facility] [place] [address], [place] [address] 9380 Oct, Post-traumatic stress disorder, unspecified F43.10 ; Major depressive disorder, recurrent, moderate F33.1 and Problems related to release from half-way Z65.2 [facility] [place] [address], [place] [address] 5971 Sep, Chronic pain G89.29 and Anxiety F41.9 [facility] [place] [address], [place] [address] 9045 Sep, Post-traumatic stress disorder, unspecified F43.10 ; Major depressive disorder, recurrent, moderate F33.1 and Problems related to release from half-way Z65.2 [facility] [place] [address], [place] [address] 2076 Sep, Post-traumatic stress disorder, unspecified F43.10 ; Major depressive disorder, recurrent, moderate F33.1 and Problems related to release from half-way Z65.2 [facility] [place] [address], [place] [address] 9297 Sep, Chronic pain G89.29 [facility] [place] [address], [place] [address] 1759 Aug, Dental caries, unspecified K02.9 [facility] [address] [place] [address] 32902- 6526 Aug, Sleep apnea, obstructive G47.33 ; Obesity E66.9 ; Chronic pain G89.29 ; HTN (hypertension) I10 ; Major depressive disorder, recurrent, moderate F33.1 ; Anxiety F41.9 ; Chronic tension headaches G44.229 ; Mitral valve prolapse I34.1 ; Arrhythmia as indication for cardiac pacemaker replacement I49.9 ; Dental caries, unspecified K02.9 ; Primary insomnia F51.01 and Hyperlipidemia E78.5 [facility] [place] [address] [place] [id number] [place] [address] 94022- 6551 Aug, Post-traumatic stress disorder, unspecified F43.10 ; Major depressive disorder, recurrent, moderate F33.1 and Problems related to release from half-way Z65.2 [facility] [place] [address] [place] [id number] [place] [address] 02610- 9267 Aug, Dental examination Z01.20 [facility] [address] [place] [id number] [place] [id number] Aug, Dental examination Z01.20 [facility] [address] [place] [id number] [place] [address] 58908- 2429 Aug, Post-traumatic stress disorder, unspecified F43.10 ; Major depressive disorder, recurrent, moderate F33.1 and Problems related to release from half-way Z65.2 [facility] [place] [address] [place] [id number] [place] [address] 33056- 3715 Aug, Chronic pain G89.29 and Primary insomnia F51.01 [facility] [place] [address] [place] [id number] [place] [address] 10584- 3935 Jul, [facility] [place] [address] [place] [id number] [place] [address] 55383- 5157 Jul, [facility] [place] [address] [place] [id number] [place] [address] 67781- 0392 Jul, Nausea R11.0 [facility] [address], [place] [address]- 8063 29 Jul, 2016 Arrhythmia as indication for cardiac pacemaker replacement I49.9 [facility] [place] [address] [place] [id number] [place] [address] 88523- 0269 13 Jul, 2016 Post-traumatic stress disorder, unspecified F43.10 ; Major depressive disorder, recurrent, moderate F33.1 and Problems related to release from half-way Z65.2 [facility] [place] [address] [place] [id number] [place] [address] 94238- 3197 09 Jul, 2016 Anxiety F41.9 [place] [id number] [place] [address] 36345- 7261 08 Jul, 2016 Chronic pain G89.29 [place] [id number] [place] [address] 81653- 0489 02 Jul, 2016 Sleep apnea, obstructive G47.33 ; Hyperlipidemia E78.5 ; Chronic pain G89.29 ; Blindness and low vision H54.10 ; Major depressive disorder, recurrent, moderate F33.1 ; Anxiety F41.9 ; Mitral valve prolapse I34.1 ; Arrhythmia as indication for cardiac pacemaker replacement I49.9 ; Primary insomnia F51.01 ; Bilateral headaches R51 and Environmental allergies Z91.[address] [place] [address] 85318- 2957 Jul, Post-traumatic stress disorder, unspecified F43.10 ; Major depressive disorder, recurrent, moderate F33.1 and Problems related to release from half-way Z65.2 [place] [address], [place] [address] June, Post-traumatic stress disorder, chronic F43.12 ; Anxiety F41.9 ; Problems related to release from half-way Z65.2 ; Sleep apnea, obstructive G47.33 and Primary insomnia F51.01 [address], [place] [address] 3640 June, [place] [id number] [place] [address] 66065- 1805 June, [facility] [place] [address] [place] [address] 10094- 4575 June, [facility] [address] [place] [id number] [place] [address] 71238- 5834 June, Chronic pain G89.29 [facility] [place] [address] [place] [id number] [place] [address] 51709- 3034 June, Chronic pain G89.29 [facility] [place] [address] [place] [id number] [place] [address] 48700- 6080 June, Lipoma of left lower extremity D17.24 ; Open wound T14.8 and Swelling of left lower extremity M79.89 [facility] [place] [address] [place] [id number] [place] [address] 71660- 1900 June, Post-traumatic stress disorder, unspecified F43.10 ; Major depressive disorder, recurrent, moderate F33.1 and Problems related to release from half-way Z65.2 [facility] [address] [place] [address] 26351- 2159 May, Lipoma of left lower extremity D17.24 ; Major depressive disorder, recurrent, moderate F33.1 ; Sleep apnea, obstructive G47.33 ; Hyperlipidemia E78.5 ; Obesity E66.9 ; HTN (hypertension) I10 ; Glaucoma H40.9 ; CAD (coronary artery disease) I25.10 ; Chronic tension headaches G44.229 ; Chronic pain G89.29 ; Anxiety F41.9 ; Nausea R11.0 and Primary insomnia F51.01 [facility] [address], [place] [address]- 8715 May, [place] [id number] [place] [address] 10185- 8953 May, Chronic pain G89.29 [facility] [address] [place] [address] 99160- 5902 May, [place] [address] [place] [id number] [place] [address] 68071- 2445 Apr, Post-traumatic stress disorder, unspecified F43.10 ; Major depressive disorder, recurrent, moderate F33.1 and Problems related to release from half-way Z65.2 [facility] [address] [place] [id number] [place] [address] 58662- 2017 Apr, Primary insomnia F51.01 ; Post-traumatic stress disorder, chronic F43.12 and Problems related to release from half-way Z65.2 [facility] [address] [place] [id number] [place] [address] 03435- 8176 Apr, Post-traumatic stress disorder, unspecified F43.10 ; Major depressive disorder, recurrent, moderate F33.1 and Problems related to release from half-way Z65.2 [facility] [place] [address] [place] [id number] [place] [address] 74962- 7375 Apr, [facility] [address] [place] [id number] [place] [address] 35316- 8986 Apr, Sleep apnea, obstructive G47.33 ; Chronic pain G89.29 ; HTN (hypertension) I10 ; Mitral valve prolapse I34.1 ; Shoulder pain, left M25.512 ; Arrhythmia as indication for cardiac pacemaker replacement I49.9 ; Glaucoma H40.9 ; Bilateral headaches R51 ; Environmental allergies Z91.09 ; Primary insomnia F51.01 and Nausea R11.0 [facility] [address] [place] [address] 81804- 5190 Apr, [place] [address] [place] [id number] [place] [address] 40616- 2052 Apr, [facility] [address] [place] [id number] [place] [address] 30517- 2001 07 Apr, 2016 Post-traumatic stress disorder, unspecified F43.10 ; Major depressive disorder, recurrent, moderate F33.1 and Problems related to release from half-way Z65.2 [facility] [place] [address] [place] [id number] [place] [address] 71922- 3775 Apr, HTN (hypertension) I10 [place] [address] [place] [address]- 8764 07 Apr, 2016 HTN (hypertension) I10 [place] [address] [place] [id number] [place] [address] 80925- 8169 14 Mar, 2016 Chronic pain G89.29 ; Primary insomnia F51.01 and Problems related to release from half-way Z65.2 [facility] [address] 97912- 8683 07 Mar, 2016 Post-traumatic stress disorder, unspecified F43.10 ; Major depressive disorder, recurrent, moderate F33.1 and Problems related to release from half-way Z65.2 [place] [address] [place] [address]- 8237 Feb, Post-traumatic stress disorder, unspecified F43.10 ; Major depressive disorder, recurrent, moderate F33.1 and Problems related to release from half-way Z65.2 [facility] [address] 82618- 5105 Feb, Chronic tension headaches G44.229 [facility] [address] [place] [id number] [place] [address] 94745- 5189 17 Feb, 2016 Sleep apnea, obstructive G47.33 [...] I49.9 and Primary insomnia F51.01 [facility] [address] [place] [id number] [place] [address] 85771- 3202 Feb, Post-traumatic stress disorder, unspecified F43.10 and Chronic pain G89.29 [facility] [address] [id number] [place] [address] 18990- 8430 Feb, [place] [address] [id number] Feb, Dental caries K02.9 [facility] [address] [place] [id number] [place] [address] 83203- 1215 Feb, [place] [address] [place] [id number] [place] [address] 91148- 7621 Feb, Post-traumatic stress disorder, unspecified F43.10 ; Major depressive disorder, recurrent, moderate F33.1 and Problems related to release from half-way Z65.2 [facility] [place] [address] [place] [id number] [place] [address] 68946- 2343 Jan, Sleep apnea, obstructive G47.33 and Chronic pain G89.29 [facility] [place] [address] [place] [id number] [place] [address] 38609- 5345 Jan, [place] [id number] [place] [address] 54681- 8336 Jan, Dental examination Z01.20 [facility] [place] [address] [place] [id number] [place] [address] 90250- 6525 Jan, [facility] [address] [place] [id number] [place] [address] 67102- 0346 Jan, [facility] [address] [place] [address] 10508- 8730 Dec, Post-traumatic stress disorder, unspecified F43.10 ; Major depressive disorder, recurrent, moderate F33.1 and Problems related to release from half-way Z65.2 [facility] [address], [place] [address]- 9561 Dec, Encounter for immunization Z23 ; Problems related to release from half-way Z65.2 ; Sleep apnea, obstructive G47.33 and Post-traumatic stress disorder, chronic F43.12 [facility] [address], [place] [address]- 4311 18 Dec, 2015 Sleep apnea, obstructive G47.33 ; Hyperlipidemia E78.5 ; Chronic pain G89.29 ; Glaucoma H40.9 ; HTN (hypertension) I10 ; Post-traumatic stress disorder, unspecified F43.10 ; Anxiety F41.9 ; Chronic tension headaches G44.229 ; Mitral valve prolapse I34.1 and CAD (coronary artery disease) I25.10 [facility] [place] [address] [place] [id number] [place] [address] 28909- 0862 Dec, Post-traumatic stress disorder, unspecified F43.10 ; Major depressive disorder, recurrent, moderate F33.1 and Problems related to release from half-way Z65.2 [facility] [address] 08567- 2802 Nov, Chronic pain G89.[address] 772233- 3927 Nov, Post-traumatic stress disorder, unspecified F43.10 ; Major depressive disorder, recurrent, moderate F33.1 and Problems related to release from half-way Z65.2 [facility] [address] 99160- 7997 Oct, [facility] [address] 41577- 0949 Oct, [facility] [address] 19748- 9486 Oct, Post-traumatic stress disorder, unspecified F43.10 ; Major depressive disorder, recurrent, moderate F33.1 and Problems related to release from half-way Z65.2 [facility] [place] [address] [place] [id number] [place] [address] 10170- 9072 08 Oct, [address] 92518- 7862 07 Oct, 2015 Environmental allergies Z91.09 ; Cough R05 and Open-angle glaucoma of both eyes H40.10X0 [place] [id number] [place] [address] 43993- 5928 Sep, [facility] [place] [address] 11506- 7989 Sep, Post-traumatic stress disorder, unspecified F43.10 ; Major depressive disorder, recurrent, moderate F33.1 and Problems related to release from half-way Z65.2 [facility] [address] [place] [id number] [place] [address] 69961- 0294 Sep, Chronic pain G89.29 [facility] [address] [place] [id number] [place] [address] 03547- 0942 Sep, Pain in left shoulder M25.512 ; Pain in right shoulder M25.511 and Other chronic pain G89.29 [facility] [place] [address] [place] [id number] [place] [address] 03430- 7554 Sep, [facility] [place] [address] 01335- 9620 Sep, [facility] [address] [place] [id number] [place] [address] 35890- 2510 Sep, [facility] [address] [id number] Aug, Dental examination Z01.20 [place] [address] [place] [id number] [place] [address] 03970- 4656 Aug, Post-traumatic stress disorder, unspecified F43.10 ; Open- angle glaucoma of both eyes H40.10X0 and Problems related to release from half-way Z65.2 [facility] [address] [place] [id number] [place] [address] 40803- 2981 Aug, [facility] [address] [place] [id number] [place] [address] 50312- 4748 Aug, Sleep apnea, obstructive G47.33 ; Obesity E66.9 ; Hyperlipidemia E78.5 ; Bilateral headaches R51 ; HTN (hypertension) I10 ; Post- traumatic stress disorder, unspecified F43.10 ; Anxiety F41.9 ; Neuropathy G62.9 ; Glaucoma H40.9 [address] G89.29 [facility] [address] [place] [address] [id number] Aug, Encounter for dental examination Z01.20 [facility] [address], [place] [address]- 5236 Aug, Post-traumatic stress disorder, unspecified F43.10 ; Major depressive disorder, recurrent, moderate F33.1 and Problems related to release from half-way Z65.2 [facility] [address], [place] [address]- 3123 Aug, [facility] [address] [place] [address] [id number] [place] [address] 23869- 6960 Jul, [facility] [address] [place] [id number] [place] [address] 04226- 6554 Jul, Post-traumatic stress disorder, unspecified F43.10 and Major depressive disorder, recurrent, moderate F33.1 [facility] [address], [place] [address]- 7687 Jul, [facility] [address] [place] [address] 42221- 9375 Jul, [facility] [address], [place] [address]- 3948 Jul, Chronic pain G89.29 [facility] [address] [place] [address] 61553- 5439 June, Post-traumatic stress disorder, unspecified F43.10 and Major depressive disorder, recurrent, moderate F33.1 [facility] [address], [place] [address]- 9490 June, [facility] [address], [place] [address]- 8868 June, Chronic pain G89.29 [facility] [address] [place] [address] 26333- 3408 June, Post-traumatic stress disorder, unspecified F43.10 and Major depressive disorder, recurrent, moderate F33.1 [facility] [address] [place] [address] 43249- 5563 May, 2015 Post-traumatic stress disorder, unspecified F43.10 and Major depressive disorder, recurrent, moderate F33.1 [facility] [address] [place] [id number] [place] [address] 16537- 2187 15 May, 2015 [facility] [address] [place] [id number] [place] [address] 75679- 8517 May, [facility] [address] [place] [id number] [place] [address] 00300- 5427 May, [facility] [address] [place] [id number] [place] [address] 77456- 2597 Apr, [facility] [address] [place] [id number] [place] [address] 41261- 7128 Apr, Post-traumatic stress disorder, unspecified F43.10 and Sleep apnea, obstructive G47.33 [facility] [address] [place] [id number] [place] [address] 53844- 7264 Apr, [facility] [address] [place] [id number] [place] [address] 09775- 0799 Apr, Shoulder pain, left M25.512 [facility] [address] [place] [id number] [place] [address] 08689- 5391 Apr, Post-traumatic stress disorder, unspecified F43.10 and Major depressive disorder, recurrent, moderate F33.1 [facility] [address] [place] [id number] [place] [address] 51495- 3519 17 Apr, 2015 [facility] [address] [place] [id number] [place] [address] 87963- 0006 11 Apr, 2015 [facility] [address] [place] [id number] [place] [address] 73215- 1934 08 Apr, 2015 [facility] [address] [place] [id number] [place] [address] 56823- 9718 Apr, Left shoulder pain M25.512 [facility] [address] [place] [id number] [place] [address] 11215- 0783 Mar, [facility] [address] [place] [id number] [place] [address] 37456- 5228 Mar, [place] [address] [place] [id number] [place] [address] 278903- 1569 Mar, [place] [address] [place] [id number] [place] [address] 03979- 6942 Mar, Sleep apnea, obstructive G47.33 ; Obesity E66.9 ; Chronic pain G89.29 ; Hyperlipidemia E78.5 ; HTN (hypertension) I10 ; Blindness and low vision H54.10 ; Major depressive disorder, recurrent, moderate F33.1 and Anxiety F41.9 [facility] [address] [place] [id number] [place] [address] 03858- 8042 Mar, [place] [address] [place] [id number] [place] [address] 16787- 1860 Mar, Post-traumatic stress disorder, unspecified F43.10 and Major depressive disorder, recurrent, moderate F33.1 [place] [address] [place] [id number] [place] [address] 98760- 4136 Mar, [place] [address] [place] [id number] [place] [address] 51790- 7934 04 Mar, 2015 HTN (hypertension) I10 ; Blindness and low vision H54.10 ; Obesity E66.9 ; Hyperlipidemia E78.5 ; Glaucoma H40.9 ; Chronic pain G89.29 and CAD (coronary artery disease) I25.10 [place] [address] [place] [address] 62330- 2122 Feb, [place] [address] [place] [id number] [place] [address] 18118- 5292 Feb, Post-traumatic stress disorder, unspecified F43.10 ; Obesity E66.9 ; Sleep apnea, obstructive G47.33 and Open-angle glaucoma of both eyes H40.10X0 [place] [address] [place] [id number] [place] [address]- 2546 Feb, Post-traumatic stress disorder, unspecified F43.10 and Major depressive disorder, recurrent, moderate F33.1 [facility] [address] [place] [id number] [place] [address] 37049- 9671 Feb, [place] [address] [place] [id number] [place] [address] 33311- 3045 Feb, [place] [address] [place] [id number] [place] [address] 99448- 7334 Feb, HTN (hypertension) I10 ; Post-traumatic stress disorder, unspecified F43.10 ; Blindness and low vision H54.10 ; Obesity E66.9 ; Hyperlipidemia E78.5 ; Chronic pain G89.29 ; Glaucoma H40.9 ; Mitral valve prolapse I34.1 and Bilateral headaches R51 [facility] [address] [place] [id number] [place] [address] 94277- 2598 Feb, [facility] [address] [place] [id number] [place] [address] 31118- 9885 Feb, Post-traumatic stress disorder, unspecified F43.10 and Major depressive disorder, recurrent, moderate F33.1 [place] [id number] [place] [address] 06014- 3387 Feb, [place] [address] [place] [id number] [place] [address] 09876- 1786 Feb, [facility] [address] [place] [id number] [place] [address] 48027- 5205 Jan, [place] [address] [place] [id number] [place] [address] 11404- 8411 Jan, [place] [id number] [place] [address] 42964- 4900 Jan, Obesity E66.9 ; HTN (hypertension) I10 ; Blindness and low vision H54.10 ; Major depressive disorder, recurrent, moderate F33.1 ; Glaucoma H40.9 ; Hyperlipidemia E78.5 ; Sleep apnea, obstructive G47.33 ; Chronic pain G89.29 ; Anxiety F41.9 ; Chronic tension headaches G44.229 and Cough R05 [place] [address] 79699- 0034 Jan, [facility] [address] 48812- 3767 Jan, [place] [address] 730990- 1803 Jan, Post-traumatic stress disorder, unspecified F43.10 ; Obesity E66.9 ; Sleep apnea, obstructive G47.33 and Open-angle glaucoma of both eyes H40.10X0 [place] [address] 99965- 6975 Jan, [place] [address] [address] Jan, Post-traumatic stress disorder, unspecified F43.10 and Major depressive disorder, recurrent, moderate F33.1 [place] [address] [address] [place] [id number] [place] [address] Dec, [address] [address] Dec, Sleep apnea, obstructive G47.33 ; Obesity E66.9 ; Hyperlipidemia E78.5 ; Glaucoma H40.9 ; Chronic pain G89.29 ; HTN (hypertension ) I10 ; Blindness and low vision H54.10 ; Anxiety F41.9 and CAD (coronary artery disease) I25.10 [place] [address] [address] [place] [id number] [place] [address] Nov, [place] [address] [address] Nov, [place] [address] [address] [place] [id number] [place] [address] Nov, [place] [address] [address] Nov, [facility] [address] [place] [id number] [place] [id number] Nov, [facility] [address] [place] [id number] [place] [address] Nov, Encounter for immunization Z23 ; Sleep apnea, obstructive G47.33 ; Obesity E66.9 ; Hyperlipidemia E78.5 ; Glaucoma H40.9 ; Chronic pain G89.29 ; Anxiety F41.9 ; Chronic tension headaches G44.229 and HTN (hypertension ) I10 [facility] [id number] [place] [phone]- [phone] Nov, [facility] [address] [phone] Nov, [facility] [id number] [place] [address] [phone]- [phone] Nov, Dizziness R42 [facility] [id number] [place] [address] [phone] Nov, [facility] [id number] [place] [address] [phone] Oct, [facility] [id number] [place] [address] [phone] Oct, [facility] [id number] [place] [address] [phone] Oct, [facility] [id number] [place] [address] [phone]- [phone] Oct, [facility] [id number] [place] [address] [phone] 17 Oct, 2014 Dizziness 780.4 ; Essential hypertension 401.9 ; Obesity 278.00 ; Hyperlipidemia 272.4 ; Chronic pain 338.29 ; Glaucoma 365.9 and Anxiety 300.00 [facility] [id number] [place] [address] [phone]- [phone] Oct, Essential hypertension 401.9 ; Hyperlipidemia 272.4 ; Glaucoma 365.9 ; Obesity 278.00 ; Chronic pain 338.29 and Allergy to insects V15.06 [facility] [address] [facility] [id number] [address] Sep, [facility] [address] [id number] [address] Sep, [facility] [address] [id number] [address] Sep, [facility] [address] [id number], [place] [address] Sep, [facility] [id number] [place] [address] [phone]- [phone] Aug, Essential hypertension 401.9 ; Obesity 278.00 ; Hyperlipidemia 272.4 ; Glaucoma 365.9 ; Lipoma 214.9 ; Mitral valve prolapse 424.0 ; Angina at rest 413.9 ; Lymphedema 457.1 and Chronic pain 338.29 IMMUNIZATIONS No Known Immunizations SOCIAL HISTORY Never Assessed REASON FOR VISIT bp check. Patient states that his doctor at started him on clonidin 0.1mg BID and he was instructed to come in for daily BP checks. Vipul Delgadillo MA PLAN OF CARE VITAL SIGNS Height 67 in 2018-04-14 Weight 293.1 lbs 2018-04-14 BMI 45.90 kg/m2 2018-04-14 Blood pressure systolic 152 mmHg 2018-04-14 Blood pressure diastolic 94 mmHg 2018-04-14 MEDICATIONS Unknown Medications RESULTS No Results PROCEDURES [...]
--- OUTSIDE RECORDS SUMMARY | 2018-06-02 13:56 | XMS REPORT ---
Author Author ALENA ÁLVAREZ Organization [facility] Address [address] [place] [address] Care Team Providers Care Motion Picture Operator Name Role Phone ALENA ÁLVAREZ Unavailable PROBLEMS Type Condition ICD9-CM Code PVQ50-MQ Code Onset Dates Condition Status SNOMED Code Problem Hyperlipidemia E78.5 Active 05017754 Problem Myocarditis, unspecified chronicity, 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 Active 18281415 Problem Chronic pain G89.29 Active 51656360 Problem Sleep apnea, obstructive G47.33 Active 60957410 Problem Blindness and low vision H54.10 Active 968922922 Problem HTN (hypertension) I10 Active 02411417 Problem Body mass index (BMI) of 40.0-44.9 in adult Z68.41 Active 429256633 Problem Other male erectile dysfunction N52.8 Active 801924650 Problem Mitral valve prolapse I34.1 Active 456046119 Problem Open-angle glaucoma of both eyes H40.10X0 Active 21721552 Problem Post-traumatic stress disorder, chronic F43.12 Active 716229186 Problem CAD (coronary artery disease) I25.10 Active 51026808 Problem Arrhythmia as indication for cardiac pacemaker replacement I49.9 Active 15795907 Problem Environmental allergies Z91.09 Active 490644227 Problem Morbid (severe) obesity due to excess calories E66.01 Active 283161701 Problem Primary insomnia F51.01 Active 6662120 Problem 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 Active 833577150 Problem Migraine without aura and without status migrainosus, not intractable G43.009 Active 020688467 Problem Chronic pain syndrome G89.4 Active 840794548 Problem Resistant hypertension I10 Active 28183584 Problem Anxiety F41.9 Active 55408182 Problem Other chronic pain G89.29 Active 45329615 Problem Chronic tension headaches G44.229 Active 389603783 Problem Major depressive disorder, recurrent, moderate F33.1 Active 38753910 Problem Problems related to release from residential Z65.2 Active 757017871562804 Problem Sarcoidosis D86.9 Active 35614930 Problem Insomnia disorder with non-sleep disorder mental comorbidity G47.00 Active 62804623 Problem Supraventricular tachycardia I47.1 Active 6276090 ALLERGIES No Information ENCOUNTERS Encounter Location Date Diagnosis [facility] [id number] [place] [address] 68927- 8612 June, [facility] [address] 85932- 4971 June, [facility] [address] 19404- 1184 May, [facility] [address] 68093- 9758 May, HTN (hypertension) I10 [facility] [address] 22410- 0562 May, Other chronic pain G89.29 ; Pain in left knee M25.562 and 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 [facility] [id number] [place] [address] 47465- 9696 May, [facility] [address] 55730- 4539 May, [facility] [id number] [place] [address] 05740- 9334 May, Flank pain R10.9 [facility] [address] 14269- 7567 May, HTN (hypertension) I10 [facility] [id number] [place] [address] 67881- 7648 May, Resistant hypertension I10 [facility] [address] 29332- 5828 May, [facility] [id number] [place] [address] 28942- 1681 May, Post-traumatic stress disorder, unspecified F43.10 ; Major depressive disorder, recurrent, moderate F33.1 and Problems related to release from residential Z65.2 [facility] [id number] [address]- 5499 May, HTN (hypertension) I10 [facility] [id number] [place] [address]- 0389 May, [facility] [id number] [place] [address] 09700- 7688 Apr, [facility] [id number] [place] [address], [place] [address]- 6476 Apr, [facility] [id number] [place] [address] 16553- 6163 Apr, HTN (hypertension) I10 [facility] [id number] [address]- 5181 Apr, [facility] [id number] [place] [address] 19871- 9306 Apr, [facility] [id number] [address]- 7264 Apr, [facility] [id number] [place] [address] 32535- 4662 Apr, [facility] [address] [address]- 5085 Apr, [facility] [id number] [place] [address] 56731- 7019 Apr, HTN (hypertension) I10 [facility] [id number] [place] [address]- 4268 Apr, [facility] [id number] [place] [address] 02300- 4838 Apr, [facility] [address] [address]- 3135 Apr, [facility] [id number] [place] [address] 34369- 5978 19 Apr, 2018 [facility] [id number] [place] [address] 39462- 7104 18 Apr, 2018 Left leg pain M79.605 [facility] [id number] [place] [address] 05938- 8656 18 Apr, 2018 [facility] [id number] [place] [address] 92585- 0517 15 Apr, 2018 [facility] [id number] [place] [address] 14237- 7459 14 Apr, 2018 Acute bronchitis J20.9 [facility] [id number] [place] [address] 94963- 5847 14 Apr, 2018 [facility] [id number] [place] [address] 43408- 0308 14 Apr, 2018 [facility] [id number] [place] [address] 77093- 2607 Apr, [facility] [id number] [place] [address] 62829- 4383 Apr, [facility] [id number] [place] [address] 67371- 6815 07 Apr, 2018 Morbid obesity E66.01 [facility] [id number] [place] [address] 46888- 9331 Apr, [facility] [id number] [place] [address] 59795 -2639 Apr, Contact dermatitis, unspecified contact dermatitis type, unspecified trigger L25.9 and Morbid obesity E66.01 [facility] [id number] [place] [address] 64369 -5203 02 Apr, 2018 [facility] [id number] [place] [address] 37631- 2989 Apr, [facility] [id number] [place] [address] 28884- 2186 Mar, [facility] [id number] [place] [address] 11150- 9086 Mar, Post-traumatic stress disorder, unspecified F43.10 ; Major depressive disorder, recurrent, moderate F33.1 and Problems related to release from residential Z65.2 [facility] [id number] [place] [address] 40867- 1786 Mar, Left leg pain M79.605 [facility] [address] 29693- 5773 14 Mar, 2018 Arrhythmia as indication for cardiac pacemaker replacement I49.9 ; HTN (hypertension) I10 ; Primary insomnia F51.01 ; Chronic pain syndrome G89.4 ; 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 and Myocarditis, unspecified chronicity, 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 [facility] [id number] [place] [address] 40908- 6549 Mar, Post-traumatic stress disorder, unspecified F43.10 ; Major depressive disorder, recurrent, moderate F33.1 and Problems related to release from residential Z65.2 [facility] [id number] [place] [address] 15661- 9010 Feb, Open-angle glaucoma of both eyes H40.10X0 [facility] [id number] [place] [address] 76594- 9673 Feb, Post-traumatic stress disorder, chronic F43.12 ; Anxiety F41.9 ; Problems related to release from residential Z65.2 and BMI 40.0-44.9, adult Z68.41 [facility] [id number] [place] [address] 11383- 8166 Feb, Left leg pain M79.605 [facility] [id number] [place] [address] 36953- 8547 Feb, [facility] [id number] [place] [address] 89035- 7498 Jan, Left leg pain M79.605 [facility] [id number] [place] [address] 78949- 5875 Jan, [facility] [address] 82328- 4377 Jan, Post-traumatic stress disorder, unspecified F43.10 ; Major depressive disorder, recurrent, moderate F33.1 and Problems related to release from residential Z65.2 [facility] [address] 53919- 9068 Jan, Insomnia disorder with non-sleep disorder mental comorbidity G47.00 ; Post-traumatic stress disorder, chronic F43.12 ; Anxiety F41.9 and BMI 40.0-44.9, adult Z68.41 [facility] [id number] [place] [address] 55408- 1588 14 Jan, 2018 Encounter for long-term (current) use of other medications Z79.899 [facility] [id number] [place] [address] 30114- 9019 Jan, [facility] [id number] [place] [address] 36432- 8426 Dec, Left leg pain M79.605 [facility] [id number] [place] [address] 79928- 4740 Dec, Encounter for long-term (current) use of other medications Z79.899 [facility] [id number] [place] [address] 07439- 7849 Dec, [facility] [id number] [place] [address] 39698 -0057 19 Dec, 2017 Tooth pain K08.89 ; Active dental caries K02.9 and BMI 40.0 -44.9, adult Z68.41 [facility] [id number] [place] [address] 89388 -2817 15 Dec, 2017 Acute bronchitis J20.9 and BMI 40.0-44.9, adult Z68.41 [facility] [address] [address]- 5467 15 Dec, 2017 [facility] [id number] [place] [address] 84749- 1517 Dec, [facility] [id number] [place] [address] 26817- 2572 Dec, [facility] [id number] [place] [address] 07707- 0206 Dec, [facility] [id number] [place] [address] 97764- 9746 Nov, [facility] [id number] [place] [address] 81622- 8454 Nov, Left leg pain M79.605 [place] [id number] [id number] Nov, [facility] [address] [place] [address] 00901- 2724 Nov, Encounter for long-term (current) use of other medications Z79.899 [facility] [id number] [place] [address] 92272- 8559 Nov, [facility] [id number] [place] [address] 61403- 2003 Nov, Left leg pain M79.605 [facility] [address] [place] [address] [id number] Oct, Dental examination Z01.20 [facility] [address] [place] [address] 80532- 9160 Oct, Insomnia disorder with non-sleep disorder mental comorbidity G47.00 [facility] [address] [address]- 5803 Oct, Post-traumatic stress disorder, chronic F43.12 ; Insomnia disorder with non-sleep disorder mental comorbidity G47.00 and BMI 40.0-44.9, adult Z68.41 [facility] [id number] [place] [address] 36007- 1099 19 Oct, 2017 [facility] [address] 79312 -6456 18 Oct, 2017 Insect bite (nonvenomous), left lower leg, initial encounter S80.862A ; Bitten or stung by nonvenomous insect and other nonvenomous arthropods, initial encounter W57.XXXA and BMI 40.0-44.9, adult Z68.41 [facility] [address] 76961- 8109 06 Oct, 2017 Left leg pain M79.605 [facility] [address] 30076- 9860 04 Oct, 2017 Post-traumatic stress disorder, unspecified F43.10 ; Major depressive disorder, recurrent, moderate F33.1 and Problems related to release from residential Z65.2 [facility] [id number] [place] [address] 21911- 9435 2017 Arrhythmia as indication for cardiac pacemaker replacement I49.9 [facility] [address] 93045- 9656 Sep, [facility] [address] 34361- 8992 Sep, HTN (hypertension) I10 [facility] [address] 45300- 5305 17 Sep, 2017 [facility] [address] 55466- 5904 Sep, 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 ; Chronic pain G89.29 ; Supraventricular tachycardia I47.1 and Body mass index (BMI) of 40.0-44.9 in adult Z68.41 [facility] [address] 22003- 3703 Sep, [facility] [address] [address]- 8426 Sep, Sarcoidosis D86.9 [facility] [id number] [place] [address] 14788- 5936 Sep, Sarcoidosis D86.9 [facility] [id number] [place] [address] 44842- 3980 Sep, [facility] [id number] [place] [address] 82021- 9999 Sep, [facility] [id number] [place] [address] 35141- 3381 Sep, [facility] [id number] [place] [address] 71788- 5396 Sep, [facility] [id number] [place] [address] 56067- 7495 Sep, Left leg pain M79.605 [facility] [id number] [place] [address] 30999- 7014 Sep, HTN (hypertension) I10 [facility] [id number] [place] [address] 17654- 2610 Sep, [facility] [address] [address]- 1228 Sep, Post-traumatic stress disorder, unspecified F43.10 ; Major depressive disorder, recurrent, moderate F33.1 and Problems related to release from residential Z65.2 [facility] [address] [address]- 7106 Sep, [facility] [id number] [place] [address] 60000- 7146 Aug, [facility] [address] [address] 2546 Aug, Sarcoidosis D86.9 [facility] [address] [place] [address] 90538- 4561 Aug, Sarcoidosis D86.9 [facility] [address] [place] [address] 21888- 9884 Aug, HTN (hypertension) I10 [facility] [id number] [place] [address] 68181- 1548 18 Aug, 2017 Post-traumatic stress disorder, unspecified F43.10 ; Major depressive disorder, recurrent, moderate F33.1 and Problems related to release from residential Z65.2 [facility] [id number] [place] [address] 01992- 1874 11 Aug, 2017 [facility] [id number] [place] [address] 81596- 4140 Aug, Left leg pain M79.605 [facility] [id number] [place] [address] 35895- 7807 Jul, Post-traumatic stress disorder, chronic F43.12 ; Anxiety F41.9 ; Problems related to release from residential Z65.2 and BMI 40.0-44.9, adult Z68.41 [facility] [id number] [place] [address] 09470- 0613 20 Jul, 2017 HTN (hypertension) I10 ; Body mass index (BMI) of 40.0-44.9 in adult Z68.41 ; Acute swimmer''s ear of both sides H60.333 and Chronic pain G89.29 [facility] [id number] [place] [address] 87728- 6185 19 Jul, 2017 Glaucoma H40.9 [facility] [id number] [place] [address] 74539- 0918 14 Jul, 2017 [facility] [id number] [place] [address] 98589- 5642 13 Jul, 2017 Sarcoidosis D86.9 [facility] [id number] [place] [address] 18642- 2994 12 Jul, 2017 Left leg pain M79.605 [facility] [id number] [address]- 5465 Jul, Sarcoidosis D86.9 [facility] [id number] [place] [address] 04308- 2140 Jul, Post-traumatic stress disorder, unspecified F43.10 ; Major depressive disorder, recurrent, moderate F33.1 and Problems related to release from residential Z65.2 [facility] [id number] [place] [address] 24094- 3555 June, [facility] [id number] [place] [address] 28078 -1935 June, Sore throat J02.9 and BMI 40.0-44.9, adult Z68.41 [facility] [id number] [place] [address] 92218- 0448 June, [facility] [id number] [place] [address] 83839- 7822 June, [facility] [id number] [place] [address] 08853- 4617 June, [facility] [id number] [place] [address] 44256- 6823 June, Left leg pain M79.605 [facility] [address] [address]- 3125 June, Sarcoidosis D86.9 [facility] [id number] [place] [address] 67799- 9205 June, [facility] [address] [address]- 6828 June, [facility] [id number] [place] [address] 85945- 2647 June, Left leg pain M79.605 [facility] [address] [address]- 9918 May, [facility] [id number] [address]- 1740 May, [facility] [id number] [place] [address] 98455- 0163 May, [facility] [id number] [place] [address] 26043- 4318 May, Left leg pain M79.605 [facility] [id number] [place] [address] 43858- 0839 May, Post-traumatic stress disorder, unspecified F43.10 ; Major depressive disorder, recurrent, moderate F33.1 and Problems related to release from residential Z65.2 [facility] [id number] [place] [address] 08720- 6681 04 May, 2017 Chronic pain G89.29 ; Anxiety F41.9 ; Chest pain, unspecified type R07.9 and BMI 40.0-44.9, adult Z68.41 [facility] [id number] [place] [address] 40277- 3718 30 Apr, 2017 [facility] [id number] [place] [address] 07628- 7539 29 Apr, 2017 Left leg pain M79.605 [facility] [id number] [place] [address] 83815- 6043 27 Apr, 2017 Post-traumatic stress disorder, unspecified F43.10 ; Problems related to release from residential Z65.2 ; Anxiety F41.9 and BMI 40.0-44.9 , adult Z68.41 [facility] [address] [place] [address] 97132- 8952 Apr, [facility] [id number] [place] [address] 63312- 0696 Apr, Left leg pain M79.605 [facility] [id number] [place] [address] 30231- 7696 Apr, Post-traumatic stress disorder, unspecified F43.10 ; Major depressive disorder, recurrent, moderate F33.1 and Problems related to release from residential Z65.2 [facility] [facility] [address] 87505- 3944 12 Apr, 2017 [place] [facility] [address] 78674- 8475 12 Apr, 2017 Chronic pain G89.29 ; 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 ; Morbid (severe) obesity due to excess calories E66.01 ; Anxiety F41.9 and BMI 40.0-44.9, adult Z68.41 [facility] [address] 18367 -2377 10 Apr, 2017 Sore throat J02.9 and BMI 40.0-44.9, adult Z68.41 [facility] [facility] [address] 09925- 9899 02 Apr, 2017 Left leg pain M79.605 [facility] [address] [id number] Mar, Dental examination Z01.20 [facility] [address] 75433- 0215 Mar, [facility] [address] 27568 -1078 20 Mar, 2017 Cough R05 ; Viral gastroenteritis A08.4 and BMI 40.0-44.9, adult Z68.41 [place] [address] 46014- 8533 19 Mar, 2017 Left leg pain M79.605 [facility] [facility] [address] 28529- 9770 06 Mar, 2017 Post-traumatic stress disorder, unspecified F43.10 ; Major depressive disorder, recurrent, moderate F33.1 and Problems related to release from residential Z65.2 [facility] [facility] [address] 55838- 8865 Feb, Left leg pain M79.605 [place] [address] [id number] [place] [address]80- 5650 Feb, [place] [address] [place] [id number] [place] [address] 00066- 3635 Feb, BMI 40.0-44.9, adult Z68.41 ; Chronic pain syndrome G89.4 ; Migraine without aura and without status migrainosus, not intractable G43.009 ; Mitral valve prolapse I34.1 and 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 [place] [address] [place] [id number] [place] [address] 36589- 1071 Feb, Post-traumatic stress disorder, chronic F43.12 ; Anxiety F41.9 ; Problems related to release from residential Z65.2 and BMI 40.0-44.9, adult Z68.41 [place] [address] [place] [id number] [place] [address] 00733- 5260 Feb, Post-traumatic stress disorder, unspecified F43.10 ; Major depressive disorder, recurrent, moderate F33.1 and Problems related to release from residential Z65.2 [place] [address] [place] [id number] [place] [address] 00218- 1662 Feb, Left leg pain M79.605 [place] [address] [place] [id number] [place] [address] 10804- 7434 Jan, Post-traumatic stress disorder, unspecified F43.10 ; Major depressive disorder, recurrent, moderate F33.1 and Problems related to release from residential Z65.2 [place] [id number] [place] [address] 02596- 1208 Jan, [place] [address] [place] [id number] [place] [address] 77743- 3260 Jan, [place] [address] [place] [id number] [place] [address] 14681- 8916 Jan, Anxiety F41.9 [place] [address] [place] [id number] [place] [address] 13602- 7730 Jan, Left leg pain M79.605 [facility] [id number] [place] [address] 13238- 4673 Dec, Left leg pain M79.605 [facility] [id number] [place] [address] 81499- 6951 Dec, [facility] [address] [place] [id number] [place] [address] 77824- 3993 Dec, Post-traumatic stress disorder, unspecified F43.10 ; Major depressive disorder, recurrent, moderate F33.1 and Problems related to release from residential Z65.2 [facility] [address] [place] [id number] [place] [address] 08550- 7203 31 Nov, 2016 Chronic pain G89.29 and Anxiety F41.9 [facility] [address] [place] [id number] [place] [address] 87358- 1647 24 Nov, 2016 Chronic pain G89.29 and Anxiety F41.9 [facility] [address] [place] [id number] [place] [address] 15570- 0200 16 Nov, 2016 Post-traumatic stress disorder, unspecified F43.10 ; Major depressive disorder, recurrent, moderate F33.1 and Problems related to release from residential Z65.2 [facility] [id number] [place] [address] 26271- 5983 09 Nov, 2016 Other abnormal findings in specimens from other organs, systems and tissues R89.8 ; Other male erectile dysfunction N52.8 ; Body mass index (BMI) of 40.0-44.9 in adult Z68.41 and Morbid (severe) obesity due to excess calories E66.01 [facility] [id number] [place] [address] 86632- 7125 02 Nov, 2016 Post-traumatic stress disorder, unspecified F43.10 ; Major depressive disorder, recurrent, moderate F33.1 and Problems related to release from residential Z65.2 [facility] [address] [address] Oct, Dental examination Z01.20 [facility] [facility] [address] [address] 70[address] 28 Oct, 2016 [place] [address] [address] 3[address] Oct, Encounter for immunization Z23 [facility] [address] [address] Oct, Chronic pain G89.29 ; Anxiety F41.9 ; Arrhythmia as indication for cardiac pacemaker replacement I49.9 and Glaucoma H40.9 [facility] [address] [address] 7[address] Oct, Anxiety F41.9 ; Post-traumatic stress disorder, chronic F43.12 and Problems related to release from residential Z65.2 [facility] [address] [address] 9544 Oct, Post-traumatic stress disorder, unspecified F43.10 ; Major depressive disorder, recurrent, moderate F33.1 and Problems related to release from residential Z65.2 [facility] [address] [address] 4[address] Sep, Chronic pain G89.29 and Anxiety F41.9 [facility] [address] [address] 7[address] Sep, Post-traumatic stress disorder, unspecified F43.10 ; Major depressive disorder, recurrent, moderate F33.1 and Problems related to release from residential Z65.2 [facility] [address] [address] 8[address] Sep, Post-traumatic stress disorder, unspecified F43.10 ; Major depressive disorder, recurrent, moderate F33.1 and Problems related to release from residential Z65.2 [facility] [address] [address] 2274 Sep, Chronic pain G89.29 [facility] [address] [address] 5984 Aug, Dental caries, unspecified K02.9 [facility] [id number] [place] [address] 44067- 6698 Aug, Sleep apnea, obstructive G47.33 ; Obesity E66.9 ; Chronic pain G89.29 ; HTN (hypertension) I10 ; Major depressive disorder, recurrent, moderate F33.1 ; Anxiety F41.9 ; Chronic tension headaches G44.229 ; Mitral valve prolapse I34.1 ; Arrhythmia as indication for cardiac pacemaker replacement I49.9 ; Dental caries, unspecified K02.9 ; Primary insomnia F51.01 and Hyperlipidemia E78.5 [facility] [address] [place] [id number] [place] [address] 91475- 2697 Aug, Post-traumatic stress disorder, unspecified F43.10 ; Major depressive disorder, recurrent, moderate F33.1 and Problems related to release from residential Z65.2 [facility] [address] [place] [id number] [place] [address] 94963- 0533 Aug, Dental examination Z01.20 [facility] [address] [place] [id number] [place] [address] [id number] Aug, Dental examination Z01.20 [facility] [address] [id number] [place] [address] 77315- 7235 Aug, Post-traumatic stress disorder, unspecified F43.10 ; Major depressive disorder, recurrent, moderate F33.1 and Problems related to release from residential Z65.2 [facility] [address] [place] [id number] [place] [address] 21082- 4971 Aug, Chronic pain G89.29 and Primary insomnia F51.01 [facility] [address] [place] [id number] [place] [address] 31285- 2002 Jul, [place] [address] [place] [id number] [place] [address] 25996- 0099 Jul, [facility] [address] [place] [id number] [place] [address] 75768- 0009 Jul, Nausea R11.0 [facility] [address] [address]- 1734 29 Jul, 2016 Arrhythmia as indication for cardiac pacemaker replacement I49.9 [facility] [address] [place] [id number] [place] [address] 77154- 3475 13 Jul, 2016 Post-traumatic stress disorder, unspecified F43.10 ; Major depressive disorder, recurrent, moderate F33.1 and Problems related to release from residential Z65.2 [facility] [place] [address] [place] [id number] [place] [address] 04231- 7814 09 Jul, 2016 Anxiety F41.9 [place] [id number] [place] [address] 78746- 8125 08 Jul, 2016 Chronic pain G89.29 [place] [id number] [place] [address] 79213- 8443 02 Jul, 2016 Sleep apnea, obstructive G47.33 ; Hyperlipidemia E78.5 ; Chronic pain G89.29 ; Blindness and low vision H54.10 ; Major depressive disorder, recurrent, moderate F33.1 ; Anxiety F41.9 ; Mitral valve prolapse I34.1 ; Arrhythmia as indication for cardiac pacemaker replacement I49.9 ; Primary insomnia F51.01 ; Bilateral headaches R51 and Environmental allergies Z91.09 [address] [place] [address] 34256- 6349 Jul, Post-traumatic stress disorder, unspecified F43.10 ; Major depressive disorder, recurrent, moderate F33.1 and Problems related to release from residential Z65.2 [facility] [facility] [address] [address] 0121 June, Post-traumatic stress disorder, chronic F43.12 ; Anxiety F41.9 ; Problems related to release from residential Z65.2 ; Sleep apnea, obstructive G47.33 and Primary insomnia F51.01 [address] [address]- 2170 June, [place] [id number] [place] [address] 18387- 0131 June, [facility] [id number] [place] [address] 54536- 1381 June, [facility] [address] [place] [id number] [place] [address] 42549- 3986 June, Chronic pain G89.29 [facility] [address] [place] [id number] [place] [address] 62086- 6398 June, Chronic pain G89.29 [facility] [address] [place] [id number] [place] [address] 14426- 4873 June, Lipoma of left lower extremity D17.24 ; Open wound T14.8 and Swelling of left lower extremity M79.89 [facility] [address] [place] [id number] [place] [address] 44002- 2441 June, Post-traumatic stress disorder, unspecified F43.10 ; Major depressive disorder, recurrent, moderate F33.1 and Problems related to release from residential Z65.2 [facility] [address] [place] [address] 41070- 4530 May, Lipoma of left lower extremity D17.24 ; Major depressive disorder, recurrent, moderate F33.1 ; Sleep apnea, obstructive G47.33 ; Hyperlipidemia E78.5 ; Obesity E66.9 ; HTN (hypertension) I10 ; Glaucoma H40.9 ; CAD (coronary artery disease) I25.10 ; Chronic tension headaches G44.229 ; Chronic pain G89.29 ; Anxiety F41.9 ; Nausea R11.0 and Primary insomnia F51.01 [place] [address] [address]- 1034 May, [place] [id number] [place] [address] 11697- 7725 May, Chronic pain G89.29 [facility] [id number] [place] [address] 13787- 0860 May, [facility] [address] [place] [id number] [place] [address] 22314- 5295 Apr, Post-traumatic stress disorder, unspecified F43.10 ; Major depressive disorder, recurrent, moderate F33.1 and Problems related to release from residential Z65.2 [facility] [address] [place] [id number] [place] [address] 30951- 7771 Apr, Primary insomnia F51.01 ; Post-traumatic stress disorder, chronic F43.12 and Problems related to release from residential Z65.2 [facility] [address] [place] [id number] [place] [address] 02963- 5657 Apr, Post-traumatic stress disorder, unspecified F43.10 ; Major depressive disorder, recurrent, moderate F33.1 and Problems related to release from residential Z65.2 [facility] [place] [address] [place] [id number] [place] [address] 73142- 9485 Apr, [facility] [address] [place] [id number] [place] [address] 16814- 9772 Apr, Sleep apnea, obstructive G47.33 ; Chronic pain G89.29 ; HTN (hypertension) I10 ; Mitral valve prolapse I34.1 ; Shoulder pain, left M25.512 ; Arrhythmia as indication for cardiac pacemaker replacement I49.9 ; Glaucoma H40.9 ; Bilateral headaches R51 ; Environmental allergies Z91.09 ; Primary insomnia F51.01 and Nausea R11.0 [facility] [id number] [place] [address] 39139- 5810 Apr, [facility] [address] [place] [id number] [place] [address] 66986- 2031 Apr, [place] [address] [place] [id number] [place] [address] 84892- 9452 07 Apr, 2016 Post-traumatic stress disorder, unspecified F43.10 ; Major depressive disorder, recurrent, moderate F33.1 and Problems related to release from residential Z65.2 [facility] [address] [place] [id number] [place] [address] 23269- 7728 Apr, HTN (hypertension) I10 [place] [address] [place] [address]- 7790 07 Apr, 2016 HTN (hypertension) I10 [place] [id number] [place] [id number] [place] [address] 85653- 1825 14 Mar, 2016 Chronic pain G89.29 ; Primary insomnia F51.01 and Problems related to release from residential Z65.2 [facility] [address] 81977- 8048 07 Mar, 2016 Post-traumatic stress disorder, unspecified F43.10 ; Major depressive disorder, recurrent, moderate F33.1 and Problems related to release from residential Z65.2 [place] [address] [place] [address]- 1407 Feb, Post-traumatic stress disorder, unspecified F43.10 ; Major depressive disorder, recurrent, moderate F33.1 and Problems related to release from residential Z65.2 [place] [address] 76921- 2813 Feb, Chronic tension headaches G44.229 [facility] [address] [place] [id number] [place] [address] 37071- 2691 17 Feb, 2016 Sleep apnea, obstructive G47.33 [...] I49.9 and Primary insomnia F51.01 [facility] [address] [place] [id number] [place] [address] 82101- 5515 Feb, Post-traumatic stress disorder, unspecified F43.10 and Chronic pain G89.29 [facility] [address] [place] [address] [id number] [place] [address] 60877- 2446 Feb, [place] [address] [id number] Feb, Dental caries K02.9 [place] [address] [place] [id number] [place] [address] 66317- 8858 Feb, [place] [address] [place] [id number] [place] [address] 07570- 0595 Feb, Post-traumatic stress disorder, unspecified F43.10 ; Major depressive disorder, recurrent, moderate F33.1 and Problems related to release from residential Z65.2 [facility] [address] [place] [id number] [place] [address] 52047- 2626 Jan, Sleep apnea, obstructive G47.33 and Chronic pain G89.29 [facility] [address] [place] [id number] [place] [address] 88904- 6916 Jan, [place] [id number] [place] [address] 88759- 6702 Jan, Dental examination Z01.20 [facility] [address] [place] [id number] [place] [address] 87703- 3642 Jan, [facility] [address] [place] [id number] [place] [address] 23760- 0317 Jan, [place] [id number] [place] [address] 05862- 1302 Dec, Post-traumatic stress disorder, unspecified F43.10 ; Major depressive disorder, recurrent, moderate F33.1 and Problems related to release from residential Z65.2 [facility] [address] [address]- 5570 Dec, Encounter for immunization Z23 ; Problems related to release from residential Z65.2 ; Sleep apnea, obstructive G47.33 and Post-traumatic stress disorder, chronic F43.12 [facility] [address] [address]- 3778 18 Dec, 2015 Sleep apnea, obstructive G47.33 ; Hyperlipidemia E78.5 ; Chronic pain G89.29 ; Glaucoma H40.9 ; HTN (hypertension) I10 ; Post-traumatic stress disorder, unspecified F43.10 ; Anxiety F41.9 ; Chronic tension headaches G44.229 ; Mitral valve prolapse I34.1 and CAD (coronary artery disease) I25.10 [place] [address] [place] [id number] [place] [address] 77574- 7960 Dec, Post-traumatic stress disorder, unspecified F43.10 ; Major depressive disorder, recurrent, moderate F33.1 and Problems related to release from residential Z65.2 [place] [address] 38815- 0718 Nov, Chronic pain G89.[address] 004801- 1401 Nov, Post-traumatic stress disorder, unspecified F43.10 ; Major depressive disorder, recurrent, moderate F33.1 and Problems related to release from residential Z65.2 [place] [address] 60488- 3620 Oct, [place] [address] 41666- 2285 Oct, [place] [address] 17571- 0276 Oct, Post-traumatic stress disorder, unspecified F43.10 ; Major depressive disorder, recurrent, moderate F33.1 and Problems related to release from residential Z65.2 [place] [address] [place] [id number] [place] [address] 20342- 0132 08 Oct, [address] 12224- 5388 07 Oct, 2015 Environmental allergies Z91.09 ; Cough R05 and Open-angle glaucoma of both eyes H40.10X0 [place] [id number] [place] [address] 29795- 9871 Sep, [place] [address] 06139- 8984 Sep, Post-traumatic stress disorder, unspecified F43.10 ; Major depressive disorder, recurrent, moderate F33.1 and Problems related to release from residential Z65.2 [facility] [address] [place] [id number] [place] [address] 10988- 5353 Sep, Chronic pain G89.29 [facility] [address] [place] [id number] [place] [address] 27182- 2611 Sep, Pain in left shoulder M25.512 ; Pain in right shoulder M25.511 and Other chronic pain G89.29 [place] [address] [place] [id number] [place] [address] 78542- 8359 Sep, [place] [address] 77878- 2794 Sep, [place] [address] [place] [id number] [place] [address] 57327- 1360 Sep, [facility] [address] [id number] Aug, Dental examination Z01.20 [place] [address] [place] [id number] [place] [address] 44385- 6040 Aug, Post-traumatic stress disorder, unspecified F43.10 ; Open- angle glaucoma of both eyes H40.10X0 and Problems related to release from residential Z65.2 [facility] [address] [place] [id number] [place] [address] 08150- 9403 Aug, [facility] [address] [place] [id number] [place] [address] 17930- 3857 Aug, Sleep apnea, obstructive G47.33 ; Obesity E66.9 ; Hyperlipidemia E78.5 ; Bilateral headaches R51 ; HTN (hypertension) I10 ; Post- traumatic stress disorder, unspecified F43.10 ; Anxiety F41.9 ; Neuropathy G62.9 ; Glaucoma H40.9 and Chronic pain G89.29 [facility] [id number] [place] [address] [id number] Aug, Encounter for dental examination Z01.20 [facility] [address] [address]- 1053 Aug, Post-traumatic stress disorder, unspecified F43.10 ; Major depressive disorder, recurrent, moderate F33.1 and Problems related to release from residential Z65.2 [facility] [address] [address]- 7877 Aug, [facility] [address] [id number] [place] [address] 76126- 7421 Jul, [facility] [address] [place] [id number] [place] [address] 40699- 5221 Jul, Post-traumatic stress disorder, unspecified F43.10 and Major depressive disorder, recurrent, moderate F33.1 [facility] [address] [address]- 2395 Jul, [facility] [id number] [place] [address] 47038- 8499 Jul, [facility] [address] [address]- 7172 Jul, Chronic pain G89.29 [facility] [id number] [place] [address] 82591- 9987 June, Post-traumatic stress disorder, unspecified F43.10 and Major depressive disorder, recurrent, moderate F33.1 [facility] [address] [address]- 9820 June, [facility] [address] [address]- 4515 June, Chronic pain G89.29 [facility] [id number] [place] [address] 40102- 6483 June, Post-traumatic stress disorder, unspecified F43.10 and Major depressive disorder, recurrent, moderate F33.1 [facility] [id number] [place] [address] 15570- 0169 May, 2015 Post-traumatic stress disorder, unspecified F43.10 and Major depressive disorder, recurrent, moderate F33.1 [facility] [address] [place] [id number] [place] [address] 54870- 1013 15 May, 2015 [facility] [address] [id number] [place] [address] 39560- 6094 May, [facility] [address] [place] [id number] [place] [address] 85172- 7413 May, [facility] [address] [place] [id number] [place] [address] 27663- 7204 Apr, [facility] [address] [place] [id number] [place] [address] 62724- 8610 Apr, Post-traumatic stress disorder, unspecified F43.10 and Sleep apnea, obstructive G47.33 [place] [address] [place] [id number] [place] [address] 96931- 9590 Apr, [facility] [address] [place] [id number] [place] [address] 72676- 6487 Apr, Shoulder pain, left M25.512 [facility] [address] [place] [id number] [place] [address] 72470- 0511 Apr, Post-traumatic stress disorder, unspecified F43.10 and Major depressive disorder, recurrent, moderate F33.1 [facility] [address] [place] [id number] [place] [address] 10409- 8613 17 Apr, 2015 [facility] [address] [place] [id number] [place] [address] 56580- 1003 11 Apr, 2015 [facility] [address] [place] [id number] [place] [address] 01098- 3283 08 Apr, 2015 [facility] [address] [place] [id number] [place] [address] 18634- 5622 Apr, Left shoulder pain M25.512 [facility] [address] [place] [id number] [place] [address] 06541- 8893 Mar, [place] [address] [place] [id number] [place] [address] 22776- 0314 Mar, [place] [address] [place] [id number] [place] [address] 451011- 3921 Mar, [place] [address] [place] [id number] [place] [address] 74230- 4825 Mar, Sleep apnea, obstructive G47.33 ; Obesity E66.9 ; Chronic pain G89.29 ; Hyperlipidemia E78.5 ; HTN (hypertension) I10 ; Blindness and low vision H54.10 ; Major depressive disorder, recurrent, moderate F33.1 and Anxiety F41.9 [place] [address] [place] [id number] [place] [address] 86464- 0222 Mar, [place] [address] [place] [id number] [place] [address] 66683- 9286 Mar, Post-traumatic stress disorder, unspecified F43.10 and Major depressive disorder, recurrent, moderate F33.1 [place] [address] [place] [id number] [place] [address] 63308- 3836 Mar, [place] [address] [place] [id number] [place] [address] 60753- 2847 04 Mar, 2015 HTN (hypertension) I10 ; Blindness and low vision H54.10 ; Obesity E66.9 ; Hyperlipidemia E78.5 ; Glaucoma H40.9 ; Chronic pain G89.29 and CAD (coronary artery disease) I25.10 [place] [id number] [place] [address] 75473- 1302 Feb, [place] [address] [place] [id number] [place] [address] 23975- 4691 Feb, Post-traumatic stress disorder, unspecified F43.10 ; Obesity E66.9 ; Sleep apnea, obstructive G47.33 and Open-angle glaucoma of both eyes H40.10X0 [place] [address] [place] [id number] [place]- 2546 Feb, Post-traumatic stress disorder, unspecified F43.10 and Major depressive disorder, recurrent, moderate F33.1 [facility] [address] [place] [id number] [place] [address] 74285- 3415 Feb, [place] [address] [place] [id number] [place] [address] 34912- 3393 Feb, [place] [address] [place] [id number] [place] [address] 87474- 2126 Feb, HTN (hypertension) I10 ; Post-traumatic stress disorder, unspecified F43.10 ; Blindness and low vision H54.10 ; Obesity E66.9 ; Hyperlipidemia E78.5 ; Chronic pain G89.29 ; Glaucoma H40.9 ; Mitral valve prolapse I34.1 and Bilateral headaches R51 [facility] [address] [place] [id number] [place] [address] 94392- 3061 Feb, [place] [address] [place] [id number] [place] [address] 69490- 3527 Feb, Post-traumatic stress disorder, unspecified F43.10 and Major depressive disorder, recurrent, moderate F33.1 [place] [id number] [place] [address] 59214- 4163 Feb, [place] [address] [place] [id number] [place] [address] 59029- 7154 Feb, [place] [address] [place] [id number] [place] [address] 06605- 9470 Jan, [facility] [place] [address] [place] [id number] [place] [address] 14140- 0773 Jan, [place] [id number] [place] [address] 13695- 7116 Jan, Obesity E66.9 ; HTN (hypertension) I10 ; Blindness and low vision H54.10 ; Major depressive disorder, recurrent, moderate F33.1 ; Glaucoma H40.9 ; Hyperlipidemia E78.5 ; Sleep apnea, obstructive G47.33 ; Chronic pain G89.29 ; Anxiety F41.9 ; Chronic tension headaches G44.229 and Cough R05 [place] [address] 30104- 6633 Jan, [facility] [address] 41797- 1129 Jan, [place] [address] 650928- 2249 Jan, Post-traumatic stress disorder, unspecified F43.10 ; Obesity E66.9 ; Sleep apnea, obstructive G47.33 and Open-angle glaucoma of both eyes H40.10X0 [place] [address] 44956- 1321 Jan, [place] [address] 30140- 1196 Jan, Post-traumatic stress disorder, unspecified F43.10 and Major depressive disorder, recurrent, moderate F33.1 [facility] [place] [address] [place] [id number] [place] [address]- [address]509 Dec, [address] [address] Dec, Sleep apnea, obstructive G47.33 ; Obesity E66.9 ; Hyperlipidemia E78.5 ; Glaucoma H40.9 ; Chronic pain G89.29 ; HTN (hypertension ) I10 ; Blindness and low vision H54.10 ; Anxiety F41.9 and CAD (coronary artery disease) I25.10 [place] [address] [place] [id number] [place] [address]- [address] Nov, [place] [address] [address] Nov, [place] [address] [place] [id number] [place] [address]- [address] Nov, [place] [address] [address] Nov, [facility] [address] [place] [id number] [place] [address]- [address] Nov, [facility] [address] [place] [id number] [place] [address]- [address]12 Nov, Encounter for immunization Z23 ; Sleep apnea, obstructive G47.33 ; Obesity E66.9 ; Hyperlipidemia E78.5 ; Glaucoma H40.9 ; Chronic pain G89.29 ; Anxiety F41.9 ; Chronic tension headaches G44.229 and HTN (hypertension ) I10 [facility] [address] [place] [id number] [place] [address]- [address] Nov, [facility] [address] [address] Nov, [facility] [address] [place] [id number] [place] [place] [phone] Nov, Dizziness R42 [facility] [id number] [place] [address] [phone] Nov, [facility] [id number] [place] [address] [phone] Oct, [facility] [id number] [place] [address] [phone]- [phone] Oct, [facility] [id number] [place] [address] [phone]- [phone] Oct, [facility] [id number] [place] [address] [phone]- 0603 Oct, [facility] [id number] [place] [address] [id number]- 0563 17 Oct, 2014 Dizziness 780.4 ; Essential hypertension 401.9 ; Obesity 278.00 ; Hyperlipidemia 272.4 ; Chronic pain 338.29 ; Glaucoma 365.9 and Anxiety 300.00 [facility] [id number] [place] [address] [phone]- [phone] Oct, Essential hypertension 401.9 ; Hyperlipidemia 272.4 ; Glaucoma 365.9 ; Obesity 278.00 ; Chronic pain 338.29 and Allergy to insects V15.06 [facility] [address] [facility] [id number] [address] Sep, [facility] [id number] [address] Sep, [facility] [id number] [address] Sep, [facility] [id number] [address] Sep, [facility] [id number] [address] Aug, Essential hypertension 401.9 ; Obesity 278.00 ; Hyperlipidemia 272.4 ; Glaucoma 365.9 ; Lipoma 214.9 ; Mitral valve prolapse 424.0 ; Angina at rest 413.9 ; Lymphedema 457.1 and Chronic pain 338.29 IMMUNIZATIONS No Known Immunizations SOCIAL HISTORY Never Assessed REASON FOR VISIT Referral request PLAN OF CARE VITAL SIGNS MEDICATIONS Unknown [...]
[2018-06-02 13:57] LABS: BASOPHILS % (AUTO) 0 % (0-10); EOSINOPHILS # (AUTO) 0.2 10^3/uL (0.0-0.3); EOSINOPHILS % (AUTO) 2 % (0-10); HEMATOCRIT 46 % (40-54); HEMOGLOBIN 15.6 G/DL (13.3-17.7); LYMPHOCYTES % (AUTO) 21 % (12-44); MEAN CORPUSCULAR HEMOGLOBIN 29 PG (25-34); MEAN CORPUSCULAR HGB CONC 34 G/DL (32-36); MEAN CORPUSCULAR VOLUME 85 FL (80-99); MEAN PLATELET VOLUME 12.6 FL (7.4-10.4); MONOCYTES % (AUTO) 10 % (0-12); NEUTROPHILS # (AUTO) 6.2 X 10^3 (1.8-7.8); NEUTROPHILS % (AUTO) 66 % (42-75); PLATELET COUNT 201 10^3/uL (130-400); RED CELL DISTRIBUTION WIDTH 13.4 % (10.0-14.5); WHITE BLOOD COUNT 9.3 10^3/uL (4.3-11.0)
[2018-06-02] MEDS ORDERED: HOLD METFORMIN - RECEIVED CONTRAST 20 ML VIAL IV SCH (14:00)
[2018-06-02 14:12] VITALS: BP 166/98
[2018-06-02 14:12] LABS: FIBRIN DEGRADATION PRODUCTS 0.44 UG/ML (0.00-0.49); PROTHROMBIN TIME PATIENT 13.3 SEC (12.2-14.7)
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
[2018-06-02 14:17] LABS: ALANINE AMINOTRANSFERASE 37 U/L (0-55); ALKALINE PHOSPHATASE 92 U/L (40-136); BILIRUBIN,TOTAL 0.4 MG/DL (0.1-1.0); BUN/CREATININE RATIO 12; CALCIUM 9.6 MG/DL (8.5-10.1); CARBON DIOXIDE 26 MMOL/L (21-32); CHLORIDE 105 MMOL/L (98-107); CREATININE SERUM 1.12 MG/DL (0.60-1.30); GFR ESTIMATED > 60; GLUCOSE 113 MG/DL (70-105); POTASSIUM 3.9 MMOL/L (3.6-5.0); SODIUM 140 MMOL/L (135-145); TOTAL PROTEIN 7.6 GM/DL (6.4-8.2)
[2018-06-02] MEDS: IOHEXOL 350 MG/ML 100 ML (OMNIPAQUE 350) VIAL IV ONE (14:36)
[2018-06-02] MEDS: NS IV 1000 ML 1,000 ML ONE (14:39)
--- NOTE | 2018-06-02 14:40 | NUR ---
FLUIDS PULLED OUT ON WRONG PATIENT.
--- NOTE | 2018-06-02 14:47 | Diagnostic Imaging Report ---
PROCEDURE: CT head wo r/o stroke. TECHNIQUE: Multiple contiguous axial images were obtained through the brain without the use of intravenous contrast. Auto Exposure Controls were utilized during the CT exam to meet ALARA standards for radiation dose reduction. INDICATION: Hypertension. Left arm numbness. COMPARISON: CT head without and with contrast 11/12/2014. FINDINGS: No intracranial hemorrhage, mass effect, hydrocephalus or extra-axial fluid collections. No CT evidence of a territorial infarction. The paranasal sinuses and mastoids are clear. Osseous structures are intact. IMPRESSION: No acute intracranial CT findings. Dictated by: Dictated on workstation # [id number]
--- NOTE | 2018-06-02 14:51 | NUR ---
BACK FROM CT.
--- NOTE | 2018-06-02 14:56 | Diagnostic Imaging Report ---
INDICATION: Hypertension and dizziness. Frontal chest obtained at 0249 hours p.m. Heart and mediastinal silhouette are normal in appearance. Pacemaker is unchanged. There is no focal infiltrate or pneumothorax or pleural fluid. IMPRESSION: No acute process in the chest. Dictated by: Dictated on workstation # [id number]
--- NOTE | 2018-06-02 15:12 | Diagnostic Imaging Report ---
PROCEDURE: CT angiography of the head and CT angiography of the neck with and without contrast. TECHNIQUE: Contiguous noncontrast images were obtained from the skull base through the vertex. After intravenous contrast administration, helical CT angiography of the neck was performed. Source data was reformatted into multiple MIP projections. Delayed post contrast acquisition was also obtained. Auto Exposure Controls were utilized during the CT exam to meet ALARA standards for radiation dose reduction. INDICATION: Left arm numbness. FINDINGS: The delayed postcontrast images through the brain are without evidence of abnormal enhancement. Overall quality is somewhat compromised due to patient's large body habitus. There is a three-vessel branching pattern to the aortic arch. Both common carotid arteries appear to be widely patent. The carotid bifurcations are unremarkable. The internal carotid arteries are widely patent. Carotid siphons are unremarkable. There is normal opacification of the anterior, middle and posterior cerebral arteries. No filling defect or thromboembolism is detected. Basilar artery is patent. Bilateral vertebral arteries are patent. Right vertebral artery is dominant. IMPRESSION: Unremarkable CT angiogram of the head and neck. Dictated by: Dictated on workstation # [id number]
[2018-06-02 15:13] LABS: BILIRUBIN,URINE NEGATIVE (NEGATIVE); CLARITY,URINE CLEAR; COLOR,URINE YELLOW; GLUCOSE, URINE (UA) NEGATIVE (NEGATIVE); KETONES,URINE NEGATIVE (NEGATIVE); LEUKOCYTE ESTERASE ,URINE NEGATIVE (NEGATIVE); NITRITE,URINE NEGATIVE (NEGATIVE); PH,URINE 8 (5-9); PROTEIN,URINE NEGATIVE (NEGATIVE); UROBILINOGEN,URINE NORMAL (NORMAL)
[2018-06-02 15:21] LABS: BACTERIA,URINE NEGATIVE /HPF; SQUAMOUS EPITHELIAL CELL,UR RARE /HPF
--- OUTSIDE RECORDS SUMMARY | 2018-06-02 15:27 | XMS REPORT | Continuity of Care Document ---
Author Organization Unknown Address Unknown Allergies Active Description Code Type Severity Reaction Onset Reported/Identified Relationship to Patient Clinical Status Yes ASPIRIN UNKNOWN GI PROBLEMS - NAUSEA Yes PENICILLINS UNKNOWN DERMATOLOGICAL - BALA Yes WASP VENOM UNKNOWN UNKNOWN Yes XALATAN UNKNOWN UNKNOWN Yes aspirin [id number] Drug Allergy Unknown N/A 07/19/2014 Yes Penicillins [id number] Drug Allergy Unknown N/A 07/19/2014 Yes aspirin [id number] Drug Allergy Unknown N/A 07/19/2014 Yes Penicillins [id number] Drug Allergy Unknown N/A 07/19/2014 Yes aspirin [id number] Drug Allergy Moderate STOMACH ACHE 03/18/2016 Yes Penicillins [id number] Drug Allergy Moderate N/V 03/18/2016 Medications Medication [...] A Ot 785.0 08/04/2014 NWAGWU, ISIDORE O AC[employer] PLANT OPERATOR Ot 272.4 08/04/2014 NWAGWU, ISIDORE O ACETY[employer]E PLANT OPERATOR Ot 278.01 08/04/2014 NWAGWU, ISIDORE O ACET[employer]E PLANT OPERATOR Ot 401.9 08/04/2014 NWAGWU, ISIDORE O ACET[employer] PLANT OPERATOR Ot 424.0 08/04/2014 NWAGWU, ISIDORE O ACETY[employer]E PLANT OPERATOR Ot 785.0 08/18/2014 ALEXANDRIA GRIFFITH Ot 401.9 08/18/2014 A[place] GRIFFITH Ot 682.6 08/18/2014 A[place] GRIFFITH Ot 729.5 08/18/2014 ALEX[place]RI[place] GRIFFITH Ot 998.13 08/18/2014 ALEX[place]RIA GRIFFITH Ot V58.69 08/24/2014 CARYN AVILES DO Ot 272.4 08/24/2014 TRACI RICHTER, CARYN A Ot 401.9 08/24/2014 TRACI RICHTER, CARYN Desai Ot 785.0 08/24/2014 NWAGWU, ISIDORE O AC[employer] PLANT OPERATOR Ot 272.4 08/24/2014 NWAGWU, ISIDORE O AC[employer] PLANT OPERATOR Ot 278.01 08/24/2014 NWAGWU, ISIDORE O AC[employer] PLANT OPERATOR Ot 401.9 08/24/2014 NWAGWU, ISIDORE O AC[employer] PLANT OPERATOR Ot 424.0 08/24/2014 NWAGWU, ISIDORE O AC[employer] PLANT OPERATOR Ot 785.0 08/24/2014 PHAM BLACKMON [employer] PLANT OPERATOR Ot 338.18 08/24/2014 PHAM BLACKMON [employer] OPERATOR Ot 729.5 08/31/2014 PHAM BLACKMON [employer] OPERATOR Ot 305.90 08/31/2014 PHAM BLACKMON [employer] PLANT OPERATOR Ot 338.18 08/31/2014 PHAM BLACKMON [employer] OPERATOR Ot 729.5 08/31/2014 PHAM BLACKMON [employer] OPERATOR Ot V65.2 10/11/2014 CARYN AVILES DO Ot 272.4 10/11/2014 TRACI RICHTER, CARYN A Ot 401.9 10/11/2014 TRACI RICHTER, CARYN Desai Ot 785.0 10/11/2014 NWAGWU, ISIDORE O AC[employer] PLANT OPERATOR Ot 272.4 10/11/2014 NWAGWU, ISIDORE O AC[employer] PLANT OPERATOR Ot 278.01 10/11/2014 NWAGWU, ISIDORE O AC[employer]E PLANT OPERATOR Ot 401.9 10/11/2014 NWAGWU, ISIDORE O AC[employer] PLANT OPERATOR Ot 424.0 10/11/2014 NWAGWU, ISIDORE O AC[employer] PLANT OPERATOR Ot 785.0 10/22/2014 GENIA MONTANEZ DO Ot 782.2 10/22/2014 GENIA MONTANEZ DO [...] FACC, ALI FACP CCDS Ot Z79.899 OTHER SPAR MACHINE 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 (CURRENT) DRUG THERAPY 03/12/2015 SAJI BURNETT FACC, ALI FACP CCDS Ot Z87.891 PERSONAL HISTORY OF NICOTINE DEPENDENCE 03/13/2015 Ot E78.5 03/13/2015 Ot I10 03/13/2015 Ot I51.7 03/13/2015 Ot R00.0 03/13/2015 Ot R00.2 05/07/2015 GENIA MONTANEZ DO Ot R22.42 05/17/2015 Ot E78.5 05/17/2015 Ot I10 05/17/2015 Ot I51.7 05/17/2015 Ot R00.0 05/17/2015 Ot R00.2 05/17/2015 LISSETH RICHTERGENIA Ot R22.42 05/17/2015 VIVI BURNETT, FRANCISCO Byrd Ot S43.432A SUPERIOR [...] ESSENTIAL (PRIMARY) HYPERTENSION 05/22/2015 VIVI BURNETT, FRANCISCO P Ot I25.10 ATHSCL HEART DISEASE OF [place] CORONARY 05/22/2015 VIVI BURNETT, FRANCISCO Byrd Ot M75.102 UNSP ROTATR-CUFF TEAR/RUPTR OF LEFT SHOU 05/22/2015 VIVI BURNETT, FRANCISCO Byrd Ot S43.432A SUPERIOR GLENOID LABRUM LESION OF LEFT S 05/23/2015 VIVI BURNETT, FRANCISCO P Ot E78.5 05/23/2015 VIVI BURNETT, FRANCISCO P Ot F32.9 05/23/2015 VIVI BURNETT, FRANCISCO P Ot I10 05/23/2015 VIVI BURNETT, RFANCISCO P Ot I25.10 05/23/2015 VIVI BURNETT, FRANCISCO P Ot M75.102 05/23/2015 VIVI BURNETT, FRANCISCO Byrd Ot S43.432A 05/23/2015 VIVI BURNETT, FRANCISCO Byrd Ot E78.5 05/23/2015 VIVI BURNETT, FRANCISCO P Ot F32.9 05/23/2015 VIVI BURNETT, FRANCISCO P Ot I10 05/23/2015 FRANCISCO TRINIDAD MD, Ot I25.10 05/23/2015 FRANCISCO TRINIDAD MD Ot M75.102 05/23/2015 FRANCISCO TRINIDAD MD Ot S43.432A 09/26/2015 Ot E78.5 HYPERLIPIDEMIA, UNSPECIFIED 09/26/2015 Ot I10 ESSENTIAL ( PRIMARY) HYPERTENSION 09/26/2015 Ot I51.7 CARDIOMEGALY 09/26/2015 Ot R00.0 TACHYCARDIA, UNSPECIFIED 09/26/2015 Ot R00.2 PALPITATIONS 09/26/2015 GENIA MONTANEZ DO D Ot R22.42 LOCALIZED SWELLING, MASS AND [...] SCREENING FOR OTHER BACTER 10/02/2015 FRANCISCO TRINIDAD MD, Ot E78.5 HYPERLIPIDEMIA, UNSPECIFIED 10/02/2015 FRANCISCO TRINIDAD MD Ot F32.9 MAJOR DEPRESSIVE DISORDER, SINGLE EPISOD 10/02/2015 FRANCISCO TRINIDAD MD Ot I10 ESSENTIAL (PRIMARY) HYPERTENSION 10/02/2015 FRANCISCO TRINIDAD MD Ot I25.10 ATHSCL HEART DISEASE OF [place] CORONARY 10/02/2015 FRANCISCO TRINIDAD MD Ot S43.431A SUPERIOR GLENOID LABRUM LESION OF RIGHT 10/02/2015 FRANCISCO TRINIDAD MD Ot Z79.899 OTHER SPAR MACHINE 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 (CURRENT) DRUG THERAPY 10/02/2015 FRANCISCO TRINIDAD MD Ot Z87.891 PERSONAL HISTORY OF NICOTINE DEPENDENCE 10/03/2015 FRANCISCO TRINIDAD MD Ot E78.5 HYPERLIPIDEMIA, UNSPECIFIED 10/03/2015 FRANCISCO TRINIDAD MD Ot F32.9 MAJOR DEPRESSIVE DISORDER, SINGLE EPISOD 10/03/2015 FRANCISCO TRINIDAD MD, Ot I10 ESSENTIAL (PRIMARY) HYPERTENSION 10/03/2015 FRANCISCO TRINIDAD MD, Ot I25.10 ATHSCL HEART DISEASE OF [place] CORONARY 10/03/2015 FRANCISCO TRINIDAD MD, Ot S43.431A SUPERIOR GLENOID LABRUM LESION OF RIGHT 10/03/2015 FRANCISCO TRINIDAD MD, Ot Z79.899 OTHER SPAR MACHINE 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 (CURRENT) DRUG THERAPY 10/03/2015 FRANCISCO TRINIDAD MD, Ot Z87.891 PERSONAL HISTORY OF NICOTINE DEPENDENCE 02/21/2016 Laurence PANG MD Ot E78.5 HYPERLIPIDEMIA, UNSPECIFIED 02/21/2016 Laurence PANG MD Ot F17.210 NICOTINE DEPENDENCE, CIGARETTES, UNCOMPL 02/21/2016 Laurence PANG MD, Ot I10 ESSENTIAL (PRIMARY) HYPERTENSION 02/21/2016 BIRD BURNETT, Laurence ARIZA Ot I48.91 UNSPECIFIED ATRIAL FIBRILLATION 02/21/2016 Laurence PANG MD, Ot I49.5 SICK SINUS SYNDROME 02/21/2016 Laurence PANG MD, Ot Z79.899 OTHER JAIL (CURRENT) DRUG THERAPY 02/24/2016 Ot E78.5 HYPERLIPIDEMIA, UNSPECIFIED 02/24/2016 Ot I10 ESSENTIAL ( PRIMARY) HYPERTENSION 02/24/2016 Ot I51.7 CARDIOMEGALY 02/24/2016 Ot R00.0 TACHYCARDIA, UNSPECIFIED 02/24/2016 Ot R00.2 PALPITATIONS 02/24/2016 GENIA MONTANEZ DO D Ot R22.42 LOCALIZED SWELLING, MASS AND LUMP, LEFT 03/18/2016 FRANCISCO TRINIDAD MD, Ot M19.011 PRIMARY OSTEOARTHRITIS, RIGHT SHOULDER 03/18/2016 FRANCISCO TRINIDAD MD Ot Z01.812 ENCOUNTER FOR PREPROCEDURAL LABORATORY E 03/18/2016 FRANCISCO TRINIDAD MD Ot Z11.2 ENCOUNTER FOR SCREENING FOR OTHER BACTER 03/19/2016 FRANCISCO TRINIDAD MD Ot M19.011 PRIMARY OSTEOARTHRITIS, RIGHT SHOULDER 03/19/2016 FRANCISCO TRINIDAD MD Ot Z01.812 ENCOUNTER FOR PREPROCEDURAL LABORATORY E 03/19/2016 FRANCISCO TRINIDAD MD Ot Z11.2 ENCOUNTER FOR SCREENING FOR OTHER BACTER 03/24/2016 FRANCISCO TRINIDAD MD Ot M19.011 PRIMARY OSTEOARTHRITIS, RIGHT SHOULDER 03/24/2016 FRANCISCO TRINIDAD MD Ot Z01.812 ENCOUNTER FOR PREPROCEDURAL LABORATORY E 03/24/2016 FRANCISCO TRINIDAD MD Ot Z11.2 ENCOUNTER FOR [...] APNEA (ADULT) (PEDIATR 05/01/2016 SAJI BURNETT FACC, RANCHO FACP CCDS Ot I10 ESSENTIAL (PRIMARY) HYPERTENSION 05/01/2016 SAJI BURNETT FACC, ALI FACP CCDS Ot I47.1 SUPRAVENTRICULAR TACHYCARDIA 05/01/2016 SAJI BURNETT FACC, ALI FACP CCDS Ot I49.5 SICK SINUS SYNDROME 05/01/2016 SAJI BURNETT FACC, ALI FACP CCDS Ot R00.2 PALPITATIONS 05/01/2016 SAJI BURNETT FACC, ALI FACP CCDS Ot Z72.0 TOBACCO USE 05/01/2016 SAJI BRADLEYC, ALI FACP CCDS Ot Z95.0 PRESENCE OF CARDIAC PACEMAKER 05/07/2016 SAJI BRADLEYC, ALI FACP CCDS Ot G47.33 OBSTRUCTIVE SLEEP APNEA (ADULT) (PEDIATR 05/07/2016 SAJI BRADLEYC, ALI FACP CCDS Ot I10 ESSENTIAL (PRIMARY) HYPERTENSION 05/07/2016 SAJI BRADLEYC, ALI FACP CCDS Ot I47.1 [...] I49.5 SICK SINUS SYNDROME 05/13/2016 SAJI BURNETT FACC, ALI FACP CCDS Ot R00.2 PALPITATIONS 05/13/2016 SAJI BURNETT [facility], ALI FACP CCDS Ot Z72.0 TOBACCO USE 05/13/2016 SAJI BURNETT [facility], ALI FACP CCDS Ot Z95.0 PRESENCE OF [...] T81.31XA DISRUPTION OF EXTERNAL OPERATION (SURGIC 06/07/2016 BLACKMON, PETER J [employer] OPERATOR Ot Z95.0 PRESENCE OF CARDIAC PACEMAKER 06/19/2016 ALEXANDRIA GRIFFITH Ot F17.210 NICOTINE DEPENDENCE, CIGARETTES, UNCOMPL 06/19/2016 ALEX[place]RIA GRIFFITH Ot I10 ESSENTIAL (PRIMARY) HYPERTENSION 06/19/2016 A[place]RI[place] GRIFFITH Ot L76.34 POSTPROC SEROMA OF SKIN, SUBCU FOLLOWING 06/19/2016 ALEX[place]RIA GRIFFITH Ot Z79.899 OTHER SPAR MACHINE 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 (CURRENT) DRUG THERAPY 06/19/2016 ALEXANDRIA GRIFFITH Ot [...] OF UNSP BEHAVIOR OF BONE, SOFT 11/27/2016 RFITZ HELMS MD Ot Z98.890 OTHER SPECIFIED POSTPROCEDURAL [...] CCDS Ot I47.1 SUPRAVENTRICULAR TACHYCARDIA 02/04/2017 SAJI MD FACC, ALI FACP CCDS Ot [...] I10 ESSENTIAL (PRIMARY) HYPERTENSION 02/16/2017 SAJI BURNETT FACC, ALI FACP CCDS Ot I47.1 SUPRAVENTRICULAR TACHYCARDIA 02/16/2017 SAJI BURNETT [facility], ALI FACP CCDS Ot I47.2 VENTRICULAR TACHYCARDIA 02/16/2017 SAJI BURNETT [facility], ALI FACP CCDS Ot Z72.0 TOBACCO USE 02/16/2017 SAJI BURNETT [facility], ALI FACP CCDS Ot Z95.0 PRESENCE OF CARDIAC PACEMAKER 03/03/2017 SAJI BURNETT [facility], ALI FACP CCDS Ot E66.8 OTHER OBESITY 03/03/2017 SAJI BURNETT FAC, ALI FACP CCDS Ot G47.33 OBSTRUCTIVE SLEEP APNEA (ADULT) (PEDIATR 03/03/2017 SAJI BURNETT [facility], ALI FACP CCDS Ot I10 ESSENTIAL (PRIMARY) HYPERTENSION 03/03/2017 SAJI BURNETT [facility], ALI FACP CCDS Ot I47.1 SUPRAVENTRICULAR TACHYCARDIA 03/03/2017 SAJI BURNETT [facility], ALI FACP CCDS Ot I47.2 VENTRICULAR TACHYCARDIA 03/03/2017 SAJI BURNETT [facility], ALI FACP CCDS Ot Z72.0 TOBACCO USE 03/03/2017 SAJI BURNETT [facility], ALI FACP CCDS Ot Z95.0 PRESENCE OF CARDIAC PACEMAKER 03/03/2017 KAYLA KOENIG FORMAL WAITER/WAITRESS Ot E66.01 MORBID (SEVERE) OBESITY DUE TO EXCESS CA 03/03/2017 KAYLA KOENIG FORMAL WAITER/WAITRESS Ot I10 ESSENTIAL (PRIMARY) HYPERTENSION 03/03/2017 KAYLA KOENIG FORMAL WAITER/WAITRESS Ot I47.1 SUPRAVENTRICULAR TACHYCARDIA 03/03/2017 KAYLA KOENIG FORMAL WAITER/WAITRESS Ot I47.2 VENTRICULAR TACHYCARDIA 03/03/2017 KAYLA KOENIG FORMAL WAITER/WAITRESS Ot I49.5 SICK SINUS SYNDROME 03/03/2017 KAYLA KOENIG FORMAL WAITER/WAITRESS Ot R00.2 PALPITATIONS 03/10/2017 DONTA RICH [employer] PLANT OPERATOR Ot I47.2 VENTRICULAR TACHYCARDIA 03/10/2017 DONTA RICH ACETY[employer]E PLANT OPERATOR Ot I51.4 MYOCARDITIS, UNSPECIFIED 03/24/2017 DONTA RICH ACETY[employer]E PLANT OPERATOR Ot I47.2 VENTRICULAR TACHYCARDIA 03/24/2017 DONTA RICH ACETYLENE PLANT OPERATOR Ot I51.4 MYOCARDITIS, UNSPECIFIED 05/06/2017 Brown, [...] ENLARGED LYMPH NODES 05/19/2017 SAJI BURNETT FACC, RANCHO BRADLEYP CCDS Ot G47.33 OBSTRUCTIVE SLEEP APNEA (ADULT) (PEDIATR 05/19/2017 SAJI BURNETT FACC, RANCHO FACP CCDS Ot I10 ESSENTIAL (PRIMARY) HYPERTENSION 05/19/2017 SAJI BURNETT FACC, RANCHO FACP CCDS Ot I47.1 SUPRAVENTRICULAR TACHYCARDIA 05/19/2017 SAJI BURNETT FACC, RANCHO FACP CCDS Ot I49.5 SICK SINUS SYNDROME 05/19/2017 SAJI BURNETT FACC, RANCHO FACP CCDS Ot R00.2 PALPITATIONS 05/19/2017 SAJI BRADLEYC, ALI FACP CCDS Ot Z72.0 TOBACCO USE 05/19/2017 SAJI BURNETT FACC, ALI FACP CCDS Ot Z95.0 PRESENCE OF CARDIAC PACEMAKER 05/19/2017 FRITZ HELMS MD Ot D49.2 NEOPLASM OF UNSP BEHAVIOR OF BONE, SOFT 05/19/2017 FRITZ HELMS MD Ot Z98.890 OTHER SPECIFIED POSTPROCEDURAL STATES 05/19/2017 SAJI BURNETT FACC, ALI FACP CCDS Ot I47.2 VENTRICULAR TACHYCARDIA 05/19/2017 SAJI BURNETT FACC, ALI FACP CCDS Ot Z95.0 PRESENCE OF CARDIAC PACEMAKER 05/19/2017 SAJI BURNETT FACC, ALI FACP CCDS Ot E66.8 OTHER OBESITY 05/19/2017 SAJI BRADLEYC, ALI FACP CCDS Ot G47.33 OBSTRUCTIVE SLEEP APNEA (ADULT) (PEDIATR 05/19/2017 SAJI BURNETT FACC, ALI FACP CCDS Ot I10 ESSENTIAL (PRIMARY) HYPERTENSION 05/19/2017 SAJI BURNETT FACC, ALI FACP CCDS Ot I47.1 SUPRAVENTRICULAR TACHYCARDIA 05/19/2017 SAJI BURNETT FACC, ALI FACP CCDS Ot I47.2 VENTRICULAR TACHYCARDIA 05/19/2017 SAJI BURENTT FACC, ALI FACP CCDS Ot Z72.0 TOBACCO USE 05/19/2017 SAJI BURNETT FACC, ALI FACP CCDS Ot Z95.0 PRESENCE OF CARDIAC PACEMAKER 05/19/2017 SAJI BURNETT FACC, ALI FACP CCDS [...] PRESENCE OF CARDIAC PACEMAKER 05/19/2017 KAYLA KOENIG FORMAL WAITER/WAITRESS Ot E66.01 MORBID (SEVERE) OBESITY DUE TO EXCESS CA 05/19/2017 KAYLA KOENIG FORMAL WAITER/WAITRESS Ot I10 ESSENTIAL (PRIMARY) HYPERTENSION 05/19/2017 KAYLA KOENIG FORMAL WAITER/WAITRESS Ot I47.1 SUPRAVENTRICULAR TACHYCARDIA 05/19/2017 KAYLA KOENIG FORMAL WAITER/WAITRESS Ot I47.2 VENTRICULAR TACHYCARDIA 05/19/2017 KAYLA KOENIG FORMAL WAITER/WAITRESS Ot I49.5 SICK SINUS SYNDROME 05/19/2017 KAYLA KOENIG FORMAL WAITER/WAITRESS Ot R00.2 PALPITATIONS 05/19/2017 DONTA RICH AC[employer]E PLANT OPERATOR Ot I47.2 VENTRICULAR TACHYCARDIA 05/19/2017 DONTA RICH ACETY[employer]E PLANT OPERATOR Ot I51.4 MYOCARDITIS, UNSPECIFIED 05/19/2017 JESUS BURNETT, PAMELA Negron Ot R05 COUGH 05/19/2017 JESUS BURNETT, PAMELA Negron Ot R59.1 GENERALIZED ENLARGED LYMPH NODES 05/31/2017 JESUS BURNETT, PAMELA Negron Ot R05 COUGH 05/31/2017 JESUS BURNETT, PAMELA Negron Ot R59.1 GENERALIZED ENLARGED LYMPH NODES 07/08/2017 SAJI BURNETT FACC, ALI FACP CCDS Ot G47.33 OBSTRUCTIVE SLEEP APNEA (ADULT) (PEDIATR 07/08/2017 SAJI BURNETT FACC, ALI FACP CCDS Ot I10 ESSENTIAL (PRIMARY) HYPERTENSION 07/08/2017 SAJI BURNETT FACC, ALI FACP CCDS Ot I47.1 SUPRAVENTRICULAR TACHYCARDIA 07/08/2017 SAJI BRADLEYC, ALI FACP CCDS Ot I49.5 SICK SINUS SYNDROME 07/08/2017 SAJI BURNETT FACC, ALI FACP CCDS Ot R00.2 PALPITATIONS 07/08/2017 SAJI BRADLEYC, ALI FACP CCDS Ot Z72.0 TOBACCO USE 07/08/2017 SAJI BRADLEYC, ALI FACP CCDS Ot Z95.0 PRESENCE OF CARDIAC PACEMAKER 07/08/2017 FRITZ HELMS MD Ot D49.2 NEOPLASM OF UNSP BEHAVIOR OF BONE, SOFT 07/08/2017 FRITZ HELMS MD Ot Z98.890 OTHER SPECIFIED POSTPROCEDURAL STATES 07/08/2017 SAJI BRADLEYC, ALI FACP CCDS Ot I47.2 VENTRICULAR TACHYCARDIA 07/08/2017 SAJI BRADLEYC, ALI FACP CCDS Ot Z95.0 PRESENCE OF [...] Z95.0 PRESENCE OF CARDIAC PACEMAKER 07/08/2017 SAJI FACC, ALI FACP CCDS Ot E66.8 OTHER OBESITY 07/08/2017 SAJI MD FACC, ALI FACP CCDS Ot G47.33 OBSTRUCTIVE SLEEP APNEA (ADULT) (PEDIATR 07/08/2017 SAJI MD FACC, ALI FACP CCDS Ot I10 ESSENTIAL (PRIMARY) HYPERTENSION 07/08/2017 [facility], ALI FACP CCDS Ot I47.1 SUPRAVENTRICULAR TACHYCARDIA 07/08/2017 SAJI MD FAC, ALI FACP CCDS Ot I47.2 VENTRICULAR TACHYCARDIA 07/08/2017 [facility] FAC, ALI FACP CCDS Ot Z72.0 TOBACCO USE 07/08/2017 [facility] FACC, ALI FACP CCDS Ot Z95.0 PRESENCE OF CARDIAC PACEMAKER 07/08/2017 KAYLA KOENIG FORMAL WAITER/WAITRESS Ot E66.01 MORBID (SEVERE) OBESITY DUE TO EXCESS CA 07/08/2017 KAYLA KOENIG L FORMAL WAITER/WAITRESS Ot I10 ESSENTIAL (PRIMARY) HYPERTENSION 07/08/2017 KAYLA KOENIG FORMAL WAITER/WAITRESS Ot I47.1 SUPRAVENTRICULAR TACHYCARDIA 07/08/2017 KAYLA KOENIG FORMAL WAITER/WAITRESS Ot I47.2 VENTRICULAR TACHYCARDIA 07/08/2017 KAYLA KOENIG L FORMAL WAITER/WAITRESS Ot I49.5 SICK SINUS SYNDROME 07/08/2017 KAYLA KOENIG FORMAL WAITER/WAITRESS Ot R00.2 PALPITATIONS 07/08/2017 DONTA RICH AC[employer]E PLANT OPERATOR Ot I47.2 VENTRICULAR TACHYCARDIA 07/08/2017 DONTA RICH ACETY[employer]E PLANT OPERATOR Ot I51.4 MYOCARDITIS, UNSPECIFIED 07/08/2017 JESUS BURNETT, [...] Ot F43.10 POST-TRAUMATIC STRESS DISORDER, UNSPECIF 07/12/2017 PHAM BLACKMON APRN Ot F91.3 OPPOSITIONAL DEFIANT [...] APRN Ot Z95.0 PRESENCE OF CARDIAC PACEMAKER 02/04/2018 PHAM BLACKMON APRN Ot E78.00 PURE HYPERCHOLESTEROLEMIA, UNSPECIFIED 02/04/2018 PHAM BLACKMON APRN Ot F41.9 ANXIETY DISORDER, UNSPECIFIED 02/04/2018 PHAM BLACKMON APRN Ot F43.10 POST-TRAUMATIC STRESS DISORDER, UNSPECIF 02/04/2018 PHAM BLACKMON APRN Ot F91.3 OPPOSITIONAL DEFIANT DISORDER 02/04/2018 PHAM BLACKMON APRN Ot G43.909 MIGRAINE, UNSP, NOT INTRACTABLE, WITHOUT 02/04/2018 PHAM BLACKMON APRN Ot G47.30 SLEEP APNEA, UNSPECIFIED 02/04/2018 PHAM BLACKMON APRN Ot I10 ESSENTIAL (PRIMARY) HYPERTENSION 02/04/2018 PHAM BLACKMON APRN Ot J02.9 ACUTE PHARYNGITIS, UNSPECIFIED 02/04/2018 PHAM BLACKMON APRN Ot J40 BRONCHITIS, NOT SPECIFIED ACUTE OR CH 02/04/2018 PHAM BLACKMON APRN Ot M19.011 PRIMARY OSTEOARTHRITIS, RIGHT SHOULDER 02/04/2018 PHAM BLACKMON APRN Ot Z85.828 PERSONAL HISTORY OF OTHER MALIGNANT NEOP 02/04/2018 PHAM BLACKMON APRN Ot Z87.09 PERSONAL HISTORY OF OTHER DISEASES OF TH 02/04/2018 PHAM BLACKMON APRN Ot Z87.891 PERSONAL HISTORY OF NICOTINE DEPENDENCE 02/04/2018 PHAM BLACKMON APRN Ot Z88.0 ALLERGY STATUS TO PENICILLIN 02/04/2018 BLACKMON, PETER J ACETYLENE PLANT OPERATOR Ot Z88.6 ALLERGY STATUS TO ANALGESIC AGENT STATUS 02/04/2018 PHAM BLACKMON AC[employer] PLANT OPERATOR Ot Z92.21 PERSONAL HISTORY OF ANTINEOPLASTIC CHEMO 02/04/2018 PHAM BLACKMON AC[employer] PLANT OPERATOR Ot Z95.0 PRESENCE OF CARDIAC PACEMAKER 02/04/2018 SAJI BRADLEYC, ALI FACP CCDS Ot G47.33 OBSTRUCTIVE SLEEP APNEA (ADULT) (PEDIATR 02/04/2018 SAJI BURNETT FACC, ALI FACP CCDS Ot I10 ESSENTIAL (PRIMARY) HYPERTENSION 02/04/2018 SAJI BURNETT FACC, ALI FACP CCDS Ot I47.1 SUPRAVENTRICULAR TACHYCARDIA 02/04/2018 SAJI BURNETT FACC, ALI FACP CCDS Ot I49.5 SICK SINUS SYNDROME 02/04/2018 SAJI BRADLEYC, ALI FACP CCDS Ot R00.2 PALPITATIONS 02/04/2018 SAJI BURNETT FACC, ALI FACP CCDS Ot Z72.0 TOBACCO USE 02/04/2018 SAJI BURNETT FACC, ALI FACP CCDS Ot Z95.0 PRESENCE OF CARDIAC PACEMAKER 02/04/2018 FRITZ HELMS MD Ot D49.2 NEOPLASM OF UNSP BEHAVIOR OF BONE, SOFT 02/04/2018 FRITZ HELMS MD Ot Z98.890 OTHER SPECIFIED POSTPROCEDURAL STATES 02/04/2018 SAJI BURNETT FACC, ALI FACP CCDS Ot I47.2 VENTRICULAR TACHYCARDIA 02/04/2018 SAJI BURNETT FACC, ALI FACP CCDS Ot Z95.0 PRESENCE OF CARDIAC PACEMAKER 02/04/2018 SAJI BURNETT FACC, ALI FACP CCDS Ot E66.8 OTHER OBESITY 02/04/2018 SAJI BURNETT FACC, ALI FACP CCDS Ot G47.33 OBSTRUCTIVE SLEEP APNEA (ADULT) (PEDIATR 02/04/2018 SAJI BRADLEYC, ALI FACP CCDS Ot I10 ESSENTIAL (PRIMARY) HYPERTENSION 02/04/2018 SAJI BRADLEYC, ALI FACP CCDS Ot I47.1 SUPRAVENTRICULAR TACHYCARDIA 02/04/2018 SAJI BRADLEYC, ALI FACP CCDS Ot I47.2 VENTRICULAR TACHYCARDIA 02/04/2018 SAJI BRADLEYC, ALI FACP CCDS Ot Z72.0 TOBACCO USE 02/04/2018 SAJI BURNETT FACC, ALI FACP CCDS Ot Z95.0 PRESENCE OF CARDIAC PACEMAKER 02/04/2018 SAJI BURNETT FACC, ALI FACP CCDS Ot E66.8 OTHER OBESITY 02/04/2018 SAJI BURNETT FACC, ALI FACP CCDS Ot G47.33 OBSTRUCTIVE SLEEP APNEA (ADULT) (PEDIATR 02/04/2018 SAJI BURNETT FACC, ALI FACP CCDS Ot I10 ESSENTIAL (PRIMARY) HYPERTENSION 02/04/2018 SAJI BURNETT FACC, ALI FACP CCDS Ot I47.1 SUPRAVENTRICULAR TACHYCARDIA 02/04/2018 SAJI BURNETT FACC, ALI FACP CCDS Ot I47.2 VENTRICULAR TACHYCARDIA 02/04/2018 SAJI BURNETT FAC, ALI FACP CCDS Ot Z72.0 TOBACCO USE 02/04/2018 SAJI BURNETT FACC, ALI FACP CCDS Ot Z95.0 PRESENCE OF CARDIAC PACEMAKER 02/04/2018 KAYLA KOENIG FORMAL WAITER/WAITRESS Ot E66.01 MORBID (SEVERE) OBESITY DUE TO EXCESS CA 02/04/2018 KAYLA KOENIG L FORMAL WAITER/WAITRESS Ot I10 ESSENTIAL (PRIMARY) HYPERTENSION 02/04/2018 KAYLA KOENIG L FORMAL WAITER/WAITRESS Ot I47.1 SUPRAVENTRICULAR TACHYCARDIA 02/04/2018 KAYLA KOENIG FORMAL WAITER/WAITRESS Ot I47.2 VENTRICULAR TACHYCARDIA 02/04/2018 KAYLA KOENIG L FORMAL WAITER/WAITRESS Ot I49.5 SICK SINUS SYNDROME 02/04/2018 KAYLA KOENIG L FORMAL WAITER/WAITRESS Ot R00.2 PALPITATIONS 02/04/2018 DONTA RICH ACETYLENE PLANT OPERATOR Ot I47.2 VENTRICULAR TACHYCARDIA 02/04/2018 DONTA RICH ACETYLENE PLANT OPERATOR Ot I51.4 MYOCARDITIS, UNSPECIFIED 02/04/2018 JESUS BURNETT, PAMELA Negron Ot R05 COUGH 02/04/2018 JESUS BURNETT, PAMELA Negron Ot R59.1 GENERALIZED ENLARGED LYMPH NODES 02/10/2018 KRYSTEN YAÑEZ Ot E78.00 PURE HYPERCHOLESTEROLEMIA, UNSPECIFIED 02/10/2018 KRYSTEN YAÑEZ Ot F41.9 ANXIETY DISORDER, UNSPECIFIED 02/10/2018 KRYSTEN YAÑEZ Ot F43.10 POST-TRAUMATIC STRESS DISORDER, UNSPECIF 02/10/2018 KRYSTEN YAÑEZ Ot F91.3 OPPOSITIONAL DEFIANT DISORDER 02/10/2018 KRYSTEN YAÑEZ Ot G43.909 MIGRAINE, UNSP, NOT INTRACTABLE, WITHOUT 02/10/2018 KRYSTEN YAÑEZ Ot G47.30 SLEEP APNEA, UNSPECIFIED 02/10/2018 SAI YAÑEZIS Ot I10 ESSENTIAL (PRIMARY) HYPERTENSION 02/10/2018 KRYSTEN YAÑEZ Ot J06.9 ACUTE UPPER RESPIRATORY INFECTION, UNSPE 02/10/2018 KRYSTEN YAÑEZ Ot J40 BRONCHITIS, NOT SPECIFIED ACUTE OR CH 02/10/2018 KRYSTEN YAÑEZ Ot R05 COUGH 02/10/2018 SAI YAÑEZIS Ot 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 02/10/2018 SAI YAÑEZIS Ot Z86.79 PERSONAL HISTORY OF OTHER DISEASES OF TH 02/10/2018 SAI YAÑEZIS Ot Z87.891 PERSONAL HISTORY OF NICOTINE DEPENDENCE 02/10/2018 SAI YAÑEZIS Ot Z88.0 ALLERGY STATUS TO PENICILLIN 02/10/2018 SAI YAÑEZIS Ot Z88.6 ALLERGY STATUS TO ANALGESIC AGENT STATUS 02/10/2018 SAI YAÑEZIS Ot Z95.0 PRESENCE OF CARDIAC PACEMAKER 02/10/2018 SAI YAÑEZIS Ot Z98.890 OTHER SPECIFIED POSTPROCEDURAL STATES 02/14/2018 KRYSTEN YAÑEZ Ot E78.00 PURE HYPERCHOLESTEROLEMIA, UNSPECIFIED 02/14/2018 SAI YAÑEZIS Ot F41.9 ANXIETY DISORDER, UNSPECIFIED 02/14/2018 KRYSTEN YAÑEZ Ot F43.10 POST-TRAUMATIC STRESS DISORDER, UNSPECIF 02/14/2018 KRYSTEN YAÑEZ Ot F91.3 OPPOSITIONAL DEFIANT DISORDER 02/14/2018 SAI YAÑEZIS Ot G43.909 MIGRAINE, UNSP, NOT INTRACTABLE, WITHOUT 02/14/2018 KRYSTEN YAÑEZ Ot G47.30 SLEEP APNEA, UNSPECIFIED 02/14/2018 KRYSTEN YAÑEZ Ot I10 ESSENTIAL (PRIMARY) HYPERTENSION 02/14/2018 KRYSTEN YAÑEZ Ot J06.9 ACUTE UPPER RESPIRATORY INFECTION, UNSPE 02/14/2018 SAI YAÑEZIS Ot J40 BRONCHITIS, NOT SPECIFIED ACUTE OR CH 02/14/2018 KRYSTEN YAÑEZ Ot R05 COUGH 02/14/2018 SAI YAÑEZIS Ot Z79.51 JAIL (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 OF INHALED STERO 02/14/2018 SAI YAÑEZIS Ot Z86.79 PERSONAL HISTORY OF OTHER DISEASES OF TH 02/14/2018 SAI YAÑEZIS Ot Z87.891 PERSONAL HISTORY OF NICOTINE DEPENDENCE 02/14/2018 SAI YAÑEZIS Ot Z88.0 ALLERGY STATUS TO PENICILLIN 02/14/2018 SAI YAÑEZIS Ot Z88.6 ALLERGY STATUS TO ANALGESIC AGENT STATUS 02/14/2018 SAI YAÑEZIS Ot Z95.0 PRESENCE OF CARDIAC PACEMAKER 02/14/2018 OTILIO KRYSTEN Ot Z98.890 OTHER SPECIFIED POSTPROCEDURAL STATES 04/12/2018 KRYSTEN YAÑEZ Ot E78.00 PURE HYPERCHOLESTEROLEMIA, UNSPECIFIED 04/12/2018 SAI YAÑEZIS Ot F41.9 ANXIETY DISORDER, UNSPECIFIED 04/12/2018 SAI YAÑEZIS Ot F43.10 POST-TRAUMATIC STRESS DISORDER, UNSPECIF 04/12/2018 SAI YAÑEZIS Ot F91.3 OPPOSITIONAL DEFIANT DISORDER 04/12/2018 SAI YAÑEZIS Ot G43.909 MIGRAINE, UNSP, NOT INTRACTABLE, WITHOUT 04/12/2018 SAI YAÑEZIS Ot G47.30 SLEEP APNEA, UNSPECIFIED 04/12/2018 SAI YAÑEZIS Ot I10 ESSENTIAL (PRIMARY) HYPERTENSION 04/12/2018 KRYSTEN YAÑEZ Ot M19.011 PRIMARY OSTEOARTHRITIS, RIGHT SHOULDER 04/12/2018 SAI YAÑEZIS Ot M79.605 PAIN IN LEFT LEG 04/12/2018 SAI YAÑEZIS Ot S90.122A CONTUSION OF LEFT LESSER TOE(S) W/O JUAN 04/12/2018 KRYSTEN YAÑEZ Ot W22.03XA WALKED INTO FURNITURE, INITIAL ENCOUNTER 04/12/2018 KRYSTEN YAÑEZ Ot 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 04/12/2018 KRYSTEN YAÑEZ Ot Z85.828 PERSONAL HISTORY OF OTHER MALIGNANT NEOP 04/12/2018 SAI YAÑEZIS Ot Z87.891 PERSONAL HISTORY OF NICOTINE DEPENDENCE 04/12/2018 KRYSTEN YAÑEZ Ot Z88.0 ALLERGY STATUS TO PENICILLIN 04/12/2018 SAI YAÑEZIS Ot Z88.2 ALLERGY STATUS TO SULFONAMIDES STATUS 04/12/2018 SAI YAÑEZIS Ot Z92.21 PERSONAL HISTORY OF ANTINEOPLASTIC CHEMO 04/12/2018 SAI YAÑEZIS Ot Z95.0 PRESENCE OF CARDIAC PACEMAKER 04/12/2018 SAI YAÑEZIS Ot Z98.890 OTHER SPECIFIED POSTPROCEDURAL STATES 04/12/2018 SAJI BURNETT FACC, ALI FACP CCDS Ot G47.33 OBSTRUCTIVE SLEEP APNEA (ADULT) (PEDIATR 04/12/2018 SAJI BURNETT FACC, ALI FACP CCDS Ot I10 ESSENTIAL (PRIMARY) HYPERTENSION 04/12/2018 SAJI BURNETT FACC, ALI FACP CCDS Ot I47.1 SUPRAVENTRICULAR TACHYCARDIA 04/12/2018 SAJI BURNETT FACC, ALI FACP CCDS Ot I49.5 SICK SINUS SYNDROME 04/12/2018 SAJI BURNETT FACC, ALI FACP CCDS Ot R00.2 PALPITATIONS 04/12/2018 SAJI BRADLEYC, ALI FACP CCDS Ot Z72.0 TOBACCO USE 04/12/2018 SAJI BURNETT FACC, ALI FACP CCDS Ot Z95.0 PRESENCE OF CARDIAC PACEMAKER 04/12/2018 FRITZ HELMS MD Ot D49.2 NEOPLASM OF UNSP BEHAVIOR OF BONE, SOFT 04/12/2018 FRITZ HELMS MD Ot Z98.890 OTHER SPECIFIED POSTPROCEDURAL STATES 04/12/2018 SAJI BURNETT FACC, ALI FACP CCDS Ot I47.2 VENTRICULAR TACHYCARDIA 04/12/2018 SAJI BRADLEY, ALI FACP CCDS Ot Z95.0 PRESENCE OF CARDIAC PACEMAKER 04/12/2018 SAJI BURNETT FACC, ALI FACP CCDS Ot E66.8 OTHER OBESITY 04/12/2018 SAJI BURNETT FACC, ALI FACP CCDS Ot G47.33 OBSTRUCTIVE SLEEP APNEA (ADULT) (PEDIATR 04/12/2018 SAJI BRADLEYC, ALI FACP CCDS Ot I10 ESSENTIAL (PRIMARY) HYPERTENSION 04/12/2018 SAJI BRADLEY, ALI FACP CCDS Ot I47.1 SUPRAVENTRICULAR TACHYCARDIA 04/12/2018 SAJI BURNETT FACC, ALI FACP CCDS Ot I47.2 VENTRICULAR TACHYCARDIA 04/12/2018 SAJI BURNETT FACC, ALI FACP CCDS Ot Z72.0 TOBACCO USE 04/12/2018 SAJI BURNETT FACC, ALI FACP CCDS Ot Z95.0 PRESENCE OF CARDIAC PACEMAKER 04/12/2018 SAJI BURNETT FACC, ALI FACP CCDS Ot E66.8 OTHER OBESITY 04/12/2018 SAJI BURNETT FACC, ALI FACP CCDS Ot G47.33 OBSTRUCTIVE SLEEP APNEA (ADULT) (PEDIATR 04/12/2018 SAJI BRADLEYC, ALI FACP CCDS Ot I10 ESSENTIAL (PRIMARY) HYPERTENSION 04/12/2018 SAJI BURNETT FAC, ALI FACP CCDS Ot I47.1 SUPRAVENTRICULAR TACHYCARDIA 04/12/2018 SAJI BURNETT FAC, ALI FACP CCDS Ot I47.2 VENTRICULAR TACHYCARDIA 04/12/2018 SAJI BURNETT FAC, ALI FACP CCDS Ot Z72.0 TOBACCO USE 04/12/2018 SAJI BURNETT FAC, ALI FACP CCDS Ot Z95.0 PRESENCE OF CARDIAC PACEMAKER 04/12/2018 KAYLA KOENIG FORMAL WAITER/WAITRESS Ot E66.01 MORBID (SEVERE) OBESITY DUE TO EXCESS CA 04/12/2018 RADHA KOENIGHER L FORMAL WAITER/WAITRESS Ot I10 ESSENTIAL (PRIMARY) HYPERTENSION 04/12/2018 KAYLA KOENIG FORMAL WAITER/WAITRESS Ot I47.1 SUPRAVENTRICULAR TACHYCARDIA 04/12/2018 KAYLA KOENIG FORMAL WAITER/WAITRESS Ot I47.2 VENTRICULAR TACHYCARDIA 04/12/2018 KAYLA KOENIG FORMAL WAITER/WAITRESS Ot I49.5 SICK SINUS SYNDROME 04/12/2018 KAYLA KOENIG FORMAL WAITER/WAITRESS Ot R00.2 PALPITATIONS 04/12/2018 DONTA RICH ACETYLENE PLANT OPERATOR Ot I47.2 VENTRICULAR TACHYCARDIA 04/12/2018 DONTA RICH ACETYLENE PLANT OPERATOR Ot I51.4 MYOCARDITIS, UNSPECIFIED 04/12/2018 JESUS BURNETT, PAMELA Negron Ot R05 COUGH 04/12/2018 JESUS BURNETT, PAMELA Negron Ot R59.1 GENERALIZED ENLARGED LYMPH NODES 04/14/2018 KRYSTEN YAÑEZ Ot E78.00 PURE HYPERCHOLESTEROLEMIA, UNSPECIFIED 04/14/2018 KRYSTEN YAÑEZ Ot F41.9 ANXIETY DISORDER, UNSPECIFIED 04/14/2018 KRYSTEN YAÑEZ Ot F43.10 POST-TRAUMATIC STRESS DISORDER, UNSPECIF 04/14/2018 KRYSTEN YAÑEZ Ot F91.3 OPPOSITIONAL DEFIANT DISORDER 04/14/2018 KRYSTEN YAÑEZ Ot G43.909 MIGRAINE, UNSP, NOT INTRACTABLE, WITHOUT 04/14/2018 KRYSTEN YAÑEZ Ot G47.30 SLEEP APNEA, UNSPECIFIED 04/14/2018 KRYSTEN YAÑEZ Ot I10 ESSENTIAL (PRIMARY) HYPERTENSION 04/14/2018 KRYSTEN YAÑEZ Ot M19.011 PRIMARY OSTEOARTHRITIS, RIGHT SHOULDER 04/14/2018 KRYSTEN YAÑEZ Ot M79.605 PAIN IN LEFT LEG 04/14/2018 KRYSTEN YAÑEZ Ot S90.122A CONTUSION OF LEFT LESSER TOE(S) W/O JUAN 04/14/2018 KRYSTEN YAÑEZ Ot W22.03XA WALKED INTO FURNITURE, INITIAL ENCOUNTER 04/14/2018 KRYSTEN YAÑEZ Ot 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 04/14/2018 KRYSTEN YAÑEZ Ot Z85.828 PERSONAL HISTORY OF OTHER MALIGNANT NEOP 04/14/2018 KRYSTEN YAÑEZ Ot Z87.891 PERSONAL HISTORY OF NICOTINE DEPENDENCE 04/14/2018 KRYSTEN YAÑEZ Ot Z88.0 ALLERGY STATUS TO PENICILLIN 04/14/2018 KRYSTEN YAÑEZ Ot Z88.2 ALLERGY STATUS TO SULFONAMIDES STATUS 04/14/2018 KRYSTEN YAÑEZ Ot Z92.21 PERSONAL HISTORY OF ANTINEOPLASTIC CHEMO 04/14/2018 KRYSTEN YAÑEZ Ot Z95.0 PRESENCE OF CARDIAC PACEMAKER 04/14/2018 KRYSTEN YAÑEZ Ot Z98.890 OTHER SPECIFIED POSTPROCEDURAL STATES 05/05/2018 ALENA ÁLVAREZ MD R Ot I10 ESSENTIAL (PRIMARY) HYPERTENSION 05/09/2018 ALENA ÁLVAREZ MD Ot I10 ESSENTIAL (PRIMARY) HYPERTENSION 05/23/2018 ALENA ÁLVAREZ MD Ot I10 ESSENTIAL (PRIMARY) HYPERTENSION Procedures Code Description Performed By Performed On [id number] INSERT OF MONITOR DEV INTO CHEST SUBCU/F 03/12/2015 [id number] MEASURE OF CARDIAC SAMPL PRESSURE, L H 03/12/2015 [id number] FLUOROSCOPY OF MULT COR ART USING L OSM 03/12/2015 [id number] FLUOROSCOPY OF LEFT HEART USING LOW OSMO 03/12/2015 [id number] FLUOROSCOPY OF THORACIC AORTA USING LOW 03/12/2015 [...] plasma albumin measurement (mass/volume) 3.1 g/dL 3.2-4.5 Complete blood count (CBC) with automated white [...] 17:29 Bacteria identification in wound by culture [id number] NRG QUANTITY OF GROWTH Scant Growth NRG Gram stain microscopy - 06/19/16 22:02 GRAM STAIN RESULT NO WBC'S OR BACTERIA OBSERVED NRG Bacteria identification in wound by culture - 06/19/16 22:02 Bacteria identification in wound by culture [id number] NRG QUANTITY OF GROWTH Moderate Growth NRG Gram stain microscopy - 06/19/16 23:16 GRAM STAIN RESULT NO WBC'S OR BACTERIA OBSERVED NRG Bacteria identification in wound by culture - 06/19/16 23:16 Bacteria identification in wound by culture [facility] Influenza virus A and B antigen detection - 03/09/17 09:57 FLU RESULT NEGATIVE FOR INFLUENZA A AND B ANTIGENS BY IA [facility] * Reference lab test name - 03/09/17 09:57 * Reference lab test results RESP VIRUS PNL [facility] Automated blood complete blood count (hemogram) panel [...] 10:30 Serum aldolase measurement 5.2 U/L 1.5-8.1 [id number] - 03/09/17 10:30 Screening antinuclear antibody (SERENA) assay by enzyme immunoassay <1: 80 <1:80 Serum DNA double strand antibody detection - 03/09/17 10:30 Serum DNA double strand antibody assay (units/volume) 29 [iU]/mL 0-300 Cerebrospinal fluid cytomegalovirus IgG and IgM panel - 03/09/17 10:30 [id number] Negative Negative Serum cytomegalovirus IgM antibody assay [...] IgM antibody assay (units/volume) 2.14 % 0.00-0.89 [id number] - 03/09/17 10:30 Serum herpes simplex virus (HSV) type 2 IgM antibody detection <1: 10 <1:10 [id number] - 03/09/17 10:30 [id number] Negative Negative Human immunodeficiency virus (HIV) type [...] consultation and report SEE PATH REPORT NRG [id number] - 03/09/17 10:30 Serum tissue transglutaminase IgA [...] nuclear antibody assay (units/volume) - 03/09/17 10:30 [id number] Negative Negative Serum Lei extractable nuclear antigen (YANIV) antibody assay (units/volume) < U 0-19 Ribonucleic protein (TEA BLENDER) ab - 03/09/17 10:30 Ribonucleic protein antibody assay <20 0-19 HSV 1T2 PCR (BLOOD/FLUID) - 03/09/17 10:30 Herpes simplex virus (HSV) type 1 DNA detection by polymerase chain reaction Not Detected NOT DET Herpes simplex virus (HSV) type 2 DNA detection by PCR Not Detected NOT DET Lysozyme measurement - 03/09/17 10:30 Lysozyme measurement 8.4 ug/mL 5.0-11.0 [id number] - 03/09/17 10:30 Russel Davila virus DNA [...] 03/09/17 10:34 * Reference lab test results MPO/SC-3 ANCA AB NRG * Reference lab test [...] - 06/18/17 13:04 ABSOLUTE NEUTROPHILS 3080 cells/uL 9809-4172 ABSOLUTE MONOCYTES 448 cells/uL 200-950 ABSOLUTE EOSINOPHILS [...] - 07/21/17 11:32 ABSOLUTE NEUTROPHILS 4992 cells/uL 7055-2606 ABSOLUTE MONOCYTES 858 cells/uL 200-950 ABSOLUTE EOSINOPHILS 0 cells/uL 15-500 ABSOLUTE BASOPHILS 0 cells/uL 0-200 NEUTROPHILS 64.0 % NRG LYMPHOCYTES 25.0 % NRG MONOCYTES 11.0 % NRG EOSINOPHILS 0 % NRG BASOPHILS 0 % NRG ABSOLUTE LYMPHOCYTES 1950 cells/uL 850-3900 PLATELET ESTIMATION ADEQUATE ADEQUATE DIFFERENTIAL, MANUAL - 09/07/17 10:45 ABSOLUTE NEUTROPHILS 3913 cells/uL 1563-9841 ABSOLUTE MONOCYTES 663 cells/uL 200-950 ABSOLUTE EOSINOPHILS [...] - 09/14/17 12:34 MAGNESIUM 2.5 mg/dL 1.5-2.5 [facility] - 09/20/17 12:10 GLUCOSE 81 mg/dL 65-99 UREA NITROGEN (BUN) 22 mg/dL 7-25 CREATININE 1.56 mg/dL 0.60-1.35 eGFR NON-AFR. SWAZI 52 mL/min/1.73m2 > OR=60 eGFR 61 mL/min/1.73m2 > OR=60 BUN/CREATININE RATIO 14 (calc) 6-22 SODIUM 141 mmol/L 135-146 POTASSIUM 3.9 mmol/L 3.5-5.3 CHLORIDE 113 mmol/L 98-110 CARBON DIOXIDE 27 mmol/L 20-32 CALCIUM 9.3 mg/dL 8.6-10.3 [facility] - 09/23/17 11:28 GLUCOSE 103 mg/dL 65-99 UREA NITROGEN (BUN) 16 mg/dL 7-25 CREATININE 1.25 mg/dL 0.60-1.35 eGFR NON-AFR. SWAZI 68 mL/min/1.73m2 > OR=60 eGFR 79 mL/min/1.73m2 [...] - 11/17/17 16:30 ABSOLUTE NEUTROPHILS 6780 cells/uL 3456-4327 ABSOLUTE MONOCYTES 501 cells/uL 200-950 ABSOLUTE EOSINOPHILS [...] - 12/29/17 10:59 ABSOLUTE NEUTROPHILS 4655 cells/uL 3028-8944 ABSOLUTE MONOCYTES 459 cells/uL 200-950 ABSOLUTE EOSINOPHILS [...] - 01/21/18 10:18 ABSOLUTE NEUTROPHILS 4658 cells/uL 6684-9672 ABSOLUTE MONOCYTES 878 cells/uL 200-950 ABSOLUTE EOSINOPHILS 218 cells/uL 15-500 ABSOLUTE BASOPHILS 0 cells/uL 0-200 NEUTROPHILS 62.1 % NRG LYMPHOCYTES 21.4 % NRG MONOCYTES 11.7 % NRG EOSINOPHILS 2.9 % NRG BASOPHILS 0 % NRG ABSOLUTE BAND NEUTROPHILS 143 cells/uL 0-750 ABSOLUTE LYMPHOCYTES 1605 cells/uL 850-3900 BAND NEUTROPHILS 1.9 % NRG PLATELET ESTIMATION ADEQUATE ADEQUATE Whole blood basic metabolic panel - 05/04/18 12:15 Serum or plasma sodium measurement (moles/volume) 138 mmol/L 135-145 Serum or plasma potassium measurement (moles/volume) 3.7 mmol/L 3.6-5.0 Serum or plasma chloride measurement (moles/volume) 100 mmol/L 98-107 Carbon dioxide 25 mmol/L 21-32 Serum or plasma anion gap determination (moles/volume) 13 mmol/L 5-14 Serum or plasma urea nitrogen measurement (mass/volume) 16 mg/dL 7-18 Serum or plasma creatinine measurement (mass/volume) 1.32 mg/dL 0.60-1.30 Serum or plasma urea nitrogen/creatinine mass ratio 12 NRG Serum or plasma creatinine measurement with calculation of estimated glomerular filtration rate 58 NRG Serum or plasma glucose measurement (mass/volume) 139 mg/dL 70-105 Serum or plasma calcium measurement (mass/volume) 9.9 mg/dL 8.5-10.1 THYROID STIMULATING HORMONE - 05/04/18 12:15 THYROID STIMULATING HORMONE 1.06 u[iU]/mL 0.35-4.94 BMP - 05/11/18 16:19 GLUCOSE 89 mg/dL 65-99 UREA NITROGEN (BUN) 19 mg/dL 7-25 CREATININE 1.10 mg/dL 0.60-1.35 eGFR NON-AFR. SWAZI 80 mL/min/1.73m2 > OR=60 eGFR 92 mL/min/1.73m2 > OR=60 BUN/CREATININE RATIO NOT APPLICABLE (calc) 6-22 SODIUM 141 mmol/L 135-146 POTASSIUM 3.8 mmol/L 3.5-5.3 CHLORIDE 103 mmol/L 98-110 CARBON DIOXIDE 31 mmol/L 20-32 CALCIUM 9.3 mg/dL 8.6-10.3 Complete blood count (CBC) with automated white blood cell (WBC) differential - 06/02/18 13:46 Blood leukocytes automated count (number/volume) 9.3 10*3/uL 4.3-11.0 Blood erythrocytes automated count (number/volume) 5.40 10*6/uL 4.35-5.85 Venous blood hemoglobin measurement (mass/volume) 15.6 g/dL 13.3-17.7 Blood hematocrit (volume fraction) 46 % 40-54 Automated erythrocyte mean corpuscular volume 85 [foz_us] 80-99 Automated erythrocyte mean corpuscular hemoglobin (mass per erythrocyte) 29 pg 25-34 Automated erythrocyte mean corpuscular hemoglobin concentration measurement ( mass/volume) 34 g/dL 32-36 Automated erythrocyte distribution width ratio 13.4 % 10.0-14.5 Automated blood platelet count (count/volume) 201 10*3/uL 130-400 Automated blood platelet mean volume measurement 12.6 [foz_us] 7.4-10.4 Automated blood neutrophils/100 leukocytes 66 % 42-75 Automated blood lymphocytes/100 leukocytes 21 % 12-44 Blood monocytes/100 leukocytes 10 % 0-12 Automated blood eosinophils/100 leukocytes 2 % 0-10 Automated blood basophils/100 leukocytes 0 % 0-10 Blood neutrophils automated count (number/volume) 6.2 10*3 1.8-7.8 Blood lymphocytes automated count (number/volume) 2.0 10*3 1.0-4.0 Blood monocytes automated count (number/volume) 1.0 10*3 0.0-1.0 Automated eosinophil count 0.2 10*3/uL 0.0-0.3 Automated blood basophil count (count/volume) 0.0 10*3/uL 0.0-0.1 PT panel in platelet poor plasma by coagulation assay - 06/02/18 13:46 Prothrombin time (PT) in platelet poor plasma by coagulation assay 13.3 s 12.2-14.7 INR in platelet poor plasma or blood by coagulation assay 1.0 0.8-1.4 Activated partial thromboplastin time (aPTT) in platelet poor plasma bycoagulation assay - 06/02/18 13:46 Activated partial thromboplastin time (aPTT) in platelet poor plasma bycoagulation assay 38 s 24-35 Fibrin D-dimer FEU measurement in platelet poor plasma (mass/volume) - 13:46 Fibrin D-dimer FEU measurement in platelet poor plasma (mass/volume) 0.44 ug/mL 0.00-0.49 Comprehensive metabolic panel - 06/02/18 13:46 Serum or plasma sodium measurement (moles/volume) 140 mmol/L 135-145 Serum or plasma potassium measurement (moles/volume) 3.9 mmol/L 3.6-5.0 Serum or plasma chloride measurement (moles/volume) 105 mmol/L 98-107 Carbon dioxide 26 mmol/L 21-32 Serum or plasma anion gap determination (moles/volume) 9 mmol/L 5-14 Serum or plasma urea nitrogen measurement (mass/volume) 13 mg/dL 7-18 Serum or plasma creatinine measurement (mass/volume) 1.12 mg/dL 0.60-1.30 Serum or plasma urea nitrogen/creatinine mass ratio 12 NRG Serum or plasma creatinine measurement with calculation of estimated glomerular filtration rate > NRG Serum or plasma glucose measurement (mass/volume) 113 mg/dL 70-105 Serum or plasma calcium measurement (mass/volume) 9.6 mg/dL 8.5-10.1 Serum or plasma total bilirubin measurement (mass/volume) 0.4 mg/dL 0.1-1.0 Serum or plasma alkaline phosphatase measurement (enzymatic activity/volume) 92 U/L 40-136 Serum or plasma aspartate aminotransferase measurement (enzymatic activity/ volume) 30 U/L 5-34 Serum or plasma alanine aminotransferase measurement (enzymatic activity/volume ) 37 U/L 0-55 Serum or plasma protein measurement (mass/volume) 7.6 g/dL 6.4-8.2 Serum or plasma albumin measurement (mass/volume) 4.0 g/dL 3.2-4.5 CALCIUM CORRECTED 9.6 mg/dL 8.5-10.1 Serum or plasma troponin i.cardiac measurement (mass/volume) - 06/02/18 13:46 Serum or plasma troponin i.cardiac measurement (mass/volume) < ng/ mL <0.028 Radiology Report from [facility] on 10/30/2011 14:50:00 DIAGNOSTIC IMAGING REPORT [facility] - [address] [address] PHONE #: [phone] FAX #: [phone] ------- Name: GAMA MATSON Loc: [facility] Radiology No: [id number] : 1970 Age: 41 Sex: M Status: REG CLI Unit No: [id number] Phys: Analisa Hodges MD Acct: [id number] Reason For Exam: EDEMA/LT LEG VENOUS Exam Date: 10/30/2011 EXAMS: CPT CODE: [id number] DOPPLER EXTR VENOUS LMTD 99833 REASON FOR EXAM: left lower extremity pain and swelling. COMPARISON: None TECHNIQUE: Doppler, villegas-scale and color-flow imaging of the left lower extremity venous system was performed. FINDINGS: The common femoral vein, superficial femoral vein, profunda femoris, and popliteal veins are normal in appearance. The vessels show normal compressibility, color flow and doppler augmentation. The deep calf veins demonstrate no distinct intraluminal thrombus. IMPRESSION: 1. No evidence of deep venous thrombosis. Negative venous Doppler of the left lower extremity. I have personally reviewed these images and have approved or corrected the resident physician's interpretation. at 7183 * * RESIDENT: NAEEM CASTELLANO DO Reported and signed by: SHANIKA NAVARRO MD CC: Analisa Ha MD Technologist: CRISTHIAN MARQUEZ Transcribed Date/Time: 10/30/2011 (8127) Greens Keeper: MIKE Printed Date/Time: 2011 (7254) BATCH NO: N/A PAGE 1 Signed Report Radiology Report from [facility] on 12/20/2012 17:07:00 DIAGNOSTIC IMAGING REPORT [facility] - [address] [place] [address] PHONE #: [phone] FAX #: [phone] ------- Name: GAMA MATSON Loc: [facility] Radiology No: [id number] : 1970 Age: 42 Sex: M Status: REG CLI Unit No: [id number] Phys: Analisa Hodges MD Acct: [id number] Reason For Exam: LEG PAIN Exam Date: 12/20/2012 EXAMS: CPT CODE: [id number] MRI FEMUR LEFT W W/O 65814 TIME OF EXAM: 12/20/2012 12:30 PM REASON FOR EXAM: LEG PAIN . History of a lipoma that was previously excised in the upper left leg in 2004. COMPARISON: 07/23/2008 MRI of the left femur. TECHNIQUE: Multiplanar multisequence wgj-bmh-knam contrast enhanced MRI of the left femur was performed. FINDINGS: Moderate soft tissue swelling is seen along the mid femur which extends into the deep subcutaneous tissues along the fascia. There is stable appearance of fibrotic scar tissue deep to the subcutaneous tissues along the mid femur. There is a stable focal region of fatty atrophy of the quadriceps femoris muscle near the resection site. There is no acute fracture or dislocation in the femur. The hip joint is within normal limits. There are no bony lesions. No focal marrow edema is seen. No focal soft tissue masses are seen. There are no fluid collections. The vascularity is unremarkable. IMPRESSION: Moderate soft tissue swelling along the mid left femur extending into the deep subcutaneous tissues but not deep to the fascia. There is no edema of the muscles. No focal fluid collection. No evidence of bone marrow edema, osteomyelitis or abscess. I have personally reviewed these images and approved or corrected the resident physician's interpretation. at 1702 RESIDENT: CINTHIA CALDERA MD Reported and signed by: KODAK DECKER MD CC: Analisa Ha MD Technologist: JACKSON CARUSO Transcribed Date/Time: 12/20/2012 (1220) Greens Keeper: MYRIAM Printed Date/Time: 2012 (2849) BATCH NO: N/A PAGE 1 Signed Report Radiology Report from [facility] on 12/20/2012 17:08:00 DIAGNOSTIC IMAGING REPORT [facility] - [address] [address] PHONE #: [phone] FAX #: [phone] ------- Name: [facility]SON [facility] No: [id number] : 1970 Age: 42 Sex: M Status: REG [facility] Unit No: [id number] Phys: Analisa Hodges MD Acct: [id number] Reason For Exam: LEG PAIN Exam Date: 12/20/2012 EXAMS: CPT CODE: [id number] MRI TIB/FIB LEFT W W/O 25027 REASON FOR EXAM: LEG PAIN . History of a lipoma that was previously excised in the upper left leg in 2004. TIME OF THE CURRENT EXAMINATION: 12/20/2012 12:30 PM COMPARISON: None TECHNIQUE: Multiplanar multisequence xhd-jjw-xhaw contrast enhanced MRI of the left tibia-fibula was performed. FINDINGS: A small amount of pretibial soft tissue swelling is seen along the medial aspect of the mid to distal tibia. There is no acute fracture or dislocation in the left tibia- fibula. No focal osseous lesions are seen. No focal marrow edema is seen. No focal soft tissue masses are seen. There are no fluid collections. No focal enhancement is seen in the osseous or soft tissue structures. IMPRESSION: Small amount of pretibial soft tissue swelling along the medial aspect of the mid to distal left fibula. The edema does not extend through the superficial fascia into the deep compartments of the calf. No focal fluid collection. No evidence of osteomyelitis or abscess. I have personally reviewed these images and approved or corrected the resident physician's interpretation. at 1703 RESIDENT: CINTHIA CALDERA MD Reported and signed by: KODAK DECKER MD CC: Analisa Ha MD Technologist: JACKSON CARUSO Transcribed Date/Time: 12/20/2012 (1702 )Greens Keeper: MYRIAM Printed Date/Time: 2012 () BATCH NO: N/A PAGE 1 Signed Report Encounters ACCT No. Visit Date/Time Discharge Status Pt. Type Provider Facility Loc./Unit Complaint [id number] 05/16/2018 07:49:00 05/16/2018 07:49:00 CAN Outpatient THIEN ORTIZ [id number] 05/06/2017 21:48:00 05/06/2017 23:30:00 DIS Outpatient Jarred Fletcher [id number] 05/06/2017 22:17:02 Document Registration [id number] 12/20/2012 09:52:00 12/20/2012 09:52:00 DIS Outpatient Analisa Ha MD [facility] W.PEDRITO [id number] 10/30/2011 08:11:00 10/30/2011 08:11:00 DIS Outpatient Analisa Ha MD [facility] W.JUDITH [id number] 06/02/2018 10:00:00 ACT Outpatient ALENA ÁLVAREZ [facility] [id number] 05/11/2018 16:20:00 Document Registration [id number] 01/21/2018 10:20:00 Document Registration [id number] 12/29/2017 11:00:00 Document Registration [id number] 11/17/2017 16:20:00 Document Registration [id number] 2017 10:40:00 Document Registration [id number] 09/20/2017 11:20:00 Document Registration [id number] 09/14/2017 12:20:00 Document Registration [id number] 09/07/2017 10:20:00 Document Registration [id number] 07/21/2017 12:00:00 Document Registration [id number] 06/18/2017 13:00:00 Document Registration [id number] 05/12/2017 11:00:00 Document Registration [id number] 12/09/2014 10:05:00 12/09/2014 10:53:00 DIS Emergency CONNOR PAULSON MD [facility] ER [id number] 12/08/2014 20:41:00 12/09/2014 05:24:00 DIS Outpatient ABHISHEK PARISH ACETYLENE PLANT OPERATOR [facility] SLEEP [id number] 11/12/2014 16:10:00 11/12/2014 23:59:59 CLS Outpatient EDUIN CARDONA FORMAL WAITER/WAITRESS [facility] RAD [id number] 11/07/2014 20:53:00 11/08/2014 06:06:00 DIS Outpatient EDUIN CARDONA FORMAL WAITER/WAITRESS [facility] SLEEP [id number] 10/11/2014 13:04:00 10/11/2014 23:59:59 CLS Outpatient GENIA MONTANEZ DO [facility] RAD [id number] 08/31/2014 16:06:00 08/31/2014 18:49:00 DIS Emergency PHAM BLACKMON AC[employer]E PLANT OPERATOR [facility] ER [id number] 08/24/2014 22:00:00 08/24/2014 23:52:00 DIS Emergency PHAM BLACKMON ACETYLENE PLANT OPERATOR [facility] ER [id number] 08/18/2014 11:44:00 08/18/2014 14:10:00 DIS Emergency ALEXANDRIA GRIFFITH [facility] ER [id number] 07/19/2014 09:15:00 07/19/2014 23:59:59 CLS Outpatient RODRIGO RODRIGUEZ [employer]E PLANT OPERATOR [facility] CARD [id number] 06/13/2014 08:38:00 06/13/2014 23:59:59 CLS Outpatient CARYN AVILES DO [facility] LAB [id number] 05/05/2018 11:49:00 05/05/2018 23:59:59 CLS Outpatient ALENA ÁLVAREZ MD [facility] LAB I10 [id number] 05/04/2018 12:07:00 05/04/2018 23:59:59 CLS Outpatient ALENA ÁLVAREZ MD [facility] LAB HTN [id number] 04/12/2018 18:11:00 04/12/2018 19:08:00 DIS Emergency KRYSTEN YAÑEZ [facility] ER LEFT LEG PAIN [id number] 02/10/2018 17:39:00 02/10/2018 19:05:00 DIS Emergency KRYSTEN YAÑEZ [facility] ER COUGH,DIARRHEA [id number] 02/04/2018 13:37:00 02/04/2018 14:20:00 DIS Emergency PHAM BLACKMON AC[employer]E PL[employer] OPERATOR [facility] ER RUNNY NOSE;SORE THROAT [id number] 07/08/2017 20:28:00 07/08/2017 21:33:00 DIS Emergency PHAM BLACKMON AC[employer]E PLANT OPERATOR [facility] ER EAR INFECTION/RESP INFECTION [id number] 05/14/2017 13:48:00 05/14/2017 23:59:59 CLS Outpatient PAMELA LEE MD [facility] RAD R05 [id number] 03/09/2017 09:15:00 03/09/2017 23:59:59 CLS Outpatient DONTA RICH [employer]E PLANT OPERATOR [facility] LAB I51.4,I47.2 [id number] 02/19/2017 12:01:00 02/19/2017 23:59:59 CLS Outpatient KAYLA KOENIG [facility] LAB I10 I49.5 R00.2 I47.2 E66.01 [id number] 02/19/2017 10:08:00 02/19/2017 23:59:59 CLS Outpatient SAJI BURNETT FACC, RANCHO INGRAM CCDS [facility] CARD I47.2 NSVT [id number] 02/04/2017 07:26:00 02/04/2017 23:59:59 CLS Outpatient SAJI BURNETT FACC, RANCHO INGRAM CCDS [facility] CARD I47.2 NSVT [id number] 12/17/2016 11:54:00 12/17/2016 23:59:59 CLS Outpatient SAJI BURNETT FACC, RANCHO INGRAM CCDS [facility] RAD 147.2 Z95.0 [id number] 11/13/2016 10:56:00 11/13/2016 23:59:59 CLS Outpatient FRITZ HELMS MD [facility] RAD TUMOR OF SOFT TISSUE [id number] 06/19/2016 20:19:00 06/19/2016 23:17:00 DIS Emergency ALEXANDRIA GRIFFITH [facility] ER POST OP/L LEG INCISION BLEEDING [id number] 06/05/2016 17:18:00 06/05/2016 18:14:00 DIS Emergency PHAM BLACKMON APRN [facility] ER LEFT LEG WOUND OPENED [id number] 05/01/2016 09:19:00 05/01/2016 23:59:59 CLS Outpatient SAJI BURNETT FACC, RANCHO INGRAM CCDS [facility] LAB HTN, PALPITATIONS,PSVT,MELI [id number] 03/25/2016 06:15:00 03/25/2016 11:23:00 DIS Outpatient FRANCISCO TRINIDAD MD [facility] RIGHT SHOULDER PRIMARY OA [id number] 03/18/2016 09:16:00 03/18/2016 11:00:00 DIS Outpatient FRANCISCO TRINIDAD MD [facility] PREOP RIGHT SHOULDER PRIMARY OA [id number] 02/20/2016 07:39:00 02/21/2016 13:30:00 DIS Outpatient Laurence PANG MD [facility] CATH SEVERE DOMINICK [id number] 10/02/2015 10:15:00 10/02/2015 14:55:00 DIS Outpatient FRANCISCO TRINIDAD MD [facility] RIGHT LABRAL TEAR [id number] 09/26/2015 10:59:00 09/26/2015 11:26:00 DIS Outpatient FRANCISCO TRINIDAD MD [facility] PREOP RIGHT LABRAL TEAR [id number] 05/22/2015 09:00:00 05/22/2015 15:00:00 DIS Outpatient FRANCISCO TRINIDAD MD [facility] SDC TORN ROTATOR RAKESH [id number] 05/17/2015 10:19:00 05/17/2015 11:48:00 DIS Outpatient FRANCISCO TRINIDAD MD [facility] PREOP TORN ROTATOR RAKESH [id number] 04/16/2015 13:07:00 04/16/2015 23:59:59 CLS Outpatient GENIA MONTANEZ DO [facility] RAD LT THIGH MASS AND PAIN [id number] 03/12/2015 08:56:00 03/12/2015 23:59:59 CLS Outpatient SAJI BURNETT FACC, RANCHO FACCarson CCDS [facility] CATH CAD,HLP, TACHYCARDIA,PALPITATIONS [id number] 02/14/2015 13:02:00 02/14/2015 14:49:00 DIS Emergency LORENE BURNETT, CONNOR Matthew [facility] ER CHEST PAIN [id number] 06/02/2018 13:36:00 ACT Emergency CHEMA BURNETT, DAVID Lyn [facility] ER HIGH BP; L ARM NUMBNESS [id number] 03/01/2015 14:26:00 Document Registration [id number] 12/09/2014 10:05:00 Document Registration [id number] 12/08/2014 20:41:00 Document Registration [id number] 11/07/2014 20:53:00 Document Registration
[2018-06-02] MEDS: NS IV 1000 ML 1,000 ML IV ONE (16:31)
[2018-06-02] MEDS: KETOROLAC 30 MG/ML VIAL IVP ONE (16:31)
[2018-06-02 17:35] VITALS: BP 178/112
--- NOTE | 2018-06-02 17:35 | NUR ---
DR BOYD AWARE OF DISCHARGE B/P PATIENT REPORTS IT IS TIME FOR HIS PM B/P MEDS. WAS INFORMED BY TO GO HOME AND TAKE PM B/P MEDS.
== END 2018-06-02 17:32 | disposition home or self-care (01) ==
LOC: EDUNIT# 13:35 → ER 13:36
DX: R51 Headache (principal); R53.1 Weakness; G47.30 Sleep apnea, unspecified; E78.00 Pure hypercholesterolemia, unspecified; G43.909 Migraine, unspecified, not intractable, without status migrainosus; F41.9 Anxiety disorder, unspecified; F43.10 Post-traumatic stress disorder, unspecified; F91.3 Oppositional defiant disorder; M19.011 Primary osteoarthritis, right shoulder; I10 Essential (primary) hypertension; Z88.0 Allergy status to penicillin; Z87.19 Personal history of other diseases of the digestive system; Z85.831 Personal history of malignant neoplasm of soft tissue; Z92.21 Personal history of antineoplastic chemotherapy; Z88.6 Allergy status to analgesic agent; Z87.891 Personal history of nicotine dependence; Z95.0 Presence of cardiac pacemaker
CPT/HCPCS: 36415; 70450; 70496; 70498; 71045; 80053; 81000; 84484; 85025; 85379; 85610; 85730; 93005; 93041

== ENCOUNTER → 2018-07-13 | Outpatient (CLI) | payer MEDICAID ==
[2018-07-13 13:41] LABS: BASOPHILS % (AUTO) 0 % (0-10); EOSINOPHILS # (AUTO) 0.1 10^3/uL (0.0-0.3); EOSINOPHILS % (AUTO) 1 % (0-10); HEMATOCRIT 44 % (40-54); HEMOGLOBIN 15.1 G/DL (13.3-17.7); LYMPHOCYTES # (AUTO) 1.8 X 10^3 (1.0-4.0); LYMPHOCYTES % (AUTO) 22 % (12-44); MEAN CORPUSCULAR HEMOGLOBIN 29 PG (25-34); MEAN CORPUSCULAR HGB CONC 34 G/DL (32-36); MEAN CORPUSCULAR VOLUME 85 FL (80-99); MEAN PLATELET VOLUME 12.1 FL (7.4-10.4); MONOCYTES # (AUTO) 0.9 X 10^3 (0.0-1.0); MONOCYTES % (AUTO) 11 % (0-12); NEUTROPHILS # (AUTO) 5.3 X 10^3 (1.8-7.8); NEUTROPHILS % (AUTO) 65 % (42-75); PLATELET COUNT 173 10^3/uL (130-400); RED CELL DISTRIBUTION WIDTH 13.3 % (10.0-14.5); WHITE BLOOD COUNT 8.2 10^3/uL (4.3-11.0)
[2018-07-13 14:02] LABS: ALANINE AMINOTRANSFERASE 23 U/L (0-55); ALBUMIN 3.9 GM/DL (3.2-4.5); ALKALINE PHOSPHATASE 95 U/L (40-136); BILIRUBIN,TOTAL 0.4 MG/DL (0.1-1.0); BUN/CREATININE RATIO 15; CALCIUM 9.4 MG/DL (8.5-10.1); CARBON DIOXIDE 25 MMOL/L (21-32); CHLORIDE 106 MMOL/L (98-107); CREATININE SERUM 1.11 MG/DL (0.60-1.30); GFR ESTIMATED > 60; GLUCOSE 100 MG/DL (70-105); MAGNESIUM 1.8 MG/DL (1.8-2.4); POTASSIUM 3.9 MMOL/L (3.6-5.0); SODIUM 138 MMOL/L (135-145); TOTAL PROTEIN 7.3 GM/DL (6.4-8.2)
== END ==
LOC: LAB 13:13
PROVIDERS: ATTEND Internal Medicine Cardiovascular Disease
DX: I10 Essential (primary) hypertension (principal); R42 Dizziness and giddiness; I40.1 Isolated myocarditis; I47.2 Ventricular tachycardia; G47.33 Obstructive sleep apnea (adult) (pediatric); I49.5 Sick sinus syndrome; E66.9 Obesity, unspecified; Z68.41 Body mass index [BMI] 40.0-44.9, adult; Z95.0 Presence of cardiac pacemaker
CPT/HCPCS: 36415; 80053; 83735; 84443; 85025

== ENCOUNTER 2018-07-26 13:16 | Outpatient (CLI) | payer MEDICAID ==
[~2018-07-26] VITALS: Ht 170.2 cm; Wt 139.5 kg
[~2018-07-26 13:16] MED LIST changes: -AMLO10TA7 PO; -CHLO25TA22 PO; -CHOL500049 PO; -CLON0.2T PO; -GABA-488 PO; -HYDR-3923 PO; -LOSA100T57 PO; -NITR0.4T42 SL; -ONDA4TAB10 PO; -SPIR50TA4 PO
[2018-07-26] MEDS ORDERED: NITR0.4T42 SL (13:45)
[2018-07-26] MEDS ORDERED: AMLO10TA7 PO (13:45)
[2018-07-26] MEDS ORDERED: CHLO25TA22 PO (13:45)
[2018-07-26] MEDS ORDERED: ONDA4TAB10 PO (13:45)
[2018-07-26] MEDS ORDERED: CHOL500049 PO (13:45)
[2018-07-26] MEDS ORDERED: LOSA100T57 PO (13:45)
[2018-07-26] MEDS ORDERED: CLON0.2T PO (13:45)
[2018-07-26] MEDS ORDERED: HYDR-3923 PO (13:45)
[2018-07-26] MEDS ORDERED: SPIR50TA4 PO (13:45)
[2018-07-26] MEDS ORDERED: GABA-488 PO (13:45)
== END 2018-07-26 14:16 | disposition home or self-care (01) ==
LOC: PREOP 13:16
PROVIDERS: ATTEND Orthopaedic Surgery
DX: Z01.818 Encounter for other preprocedural examination (principal)
CPT/HCPCS: 87081

== ENCOUNTER → 2018-07-26 | Outpatient (CLI) | payer MEDICAID ==
[~2018-07-26] MED LIST changes: +AMLO10TA7 PO; +CHLO25TA22 PO; +CHOL500049 PO; +CLON0.2T PO; +GABA-488 PO; +HYDR-3923 PO; +LOSA100T57 PO; +NITR0.4T42 SL; +ONDA4TAB10 PO; +SPIR50TA4 PO
[2018-07-26 14:43] LABS: BUN/CREATININE RATIO 13; CALCIUM 9.1 MG/DL (8.5-10.1); CARBON DIOXIDE 25 MMOL/L (21-32); CHLORIDE 105 MMOL/L (98-107); CREATININE SERUM 1.01 MG/DL (0.60-1.30); GFR ESTIMATED > 60; GLUCOSE 80 MG/DL (70-105); POTASSIUM 3.9 MMOL/L (3.6-5.0); SODIUM 139 MMOL/L (135-145)
== END ==
LOC: LAB 14:12
PROVIDERS: ATTEND Internal Medicine Cardiovascular Disease
DX: I10 Essential (primary) hypertension (principal)
CPT/HCPCS: 36415; 80048

== ENCOUNTER 2018-08-03 08:28 | Day surgery (SDC) | payer MEDICAID ==
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
[~2018-08-03] VITALS: Ht 170.2 cm; Wt 139.5 kg
[2018-08-03] VITALS (11 sets, daily range): BP systolic 116–158; BP diastolic 56–98
[~2018-08-03 08:28] MED LIST changes: +AMLO10TA7 PO; +CHLO25TA22 PO; +CHOL500049 PO; +CLON0.2T PO; +GABA-488 PO; +HYDR-3923 PO; +LOSA100T57 PO; +NITR0.4T42 SL; +ONDA4TAB10 PO; +SPIR50TA4 PO
[2018-08-03] MEDS ORDERED: CLINDAMYCIN 600 MG/50 ML IVPB 50 ML IV ONE ×2 (08:57→09:30)
--- NOTE | 2018-08-03 09:19 | Progress Note-Pre Operative ---
Pre-Operative Progress Note H&P Reviewed The H&P was reviewed, patient examined and no changes noted. Date Seen by Provider: Aug 03, 2018 Time Seen by Provider: 09:19 Date H&P Reviewed: Aug 03, 2018 Time H&P Reviewed: 09:19 Pre-Operative Diagnosis: left knee medial meniscus tear and chondromalacia FRANCISCO TRINIDAD MD Aug 03, 2018 09:19
--- NOTE | 2018-08-03 09:21 | Progress Note-Post Operative ---
Post-Operative Progess Note Surgeon (s)/Field Adjuster (s) Surgeon FRANCISCO TRINIDAD MD Field Adjuster: Jeremy Zhang Pre-Operative Diagnosis left knee medial meniscus tear and chondromalacia Post-Operative Diagnosis lef tknee medial meniscus tear and chondromalacia medial femoral condyle, medial tibial plateau Procedure & Operative Findings Date of Procedure 08/03/18 Procedure Performed/Findings left knee arthroscopic partial medial meniscectomy and chondroplasty of the medial femoral condyle and medial tibial plateau Anesthesia Type GETA Estimated Blood Loss Estimated blood loss (mL): minimal Specimens/Packing Specimens Removed none Packing: none FRANCISCO TRINIDAD MD Aug 03, 2018 09:21
[2018-08-03] MEDS ORDERED: LACTATED RINGERS 1,000 ML IV PRN (09:22)
[2018-08-03] MEDS ORDERED: HYDROcodone/APAP 7.5 MG/325 MG (LORTAB, LORCET PLUS) TABLET PO PRN (09:30)
[2018-08-03] MEDS ORDERED: LIDOCAINE PF 2% 5 ML (XYLOCAINE) VIAL ONE (09:46)
[2018-08-03] MEDS ORDERED: MIDAZOLAM 2 MG/2 ML (VERSED) VIAL ONE (09:46)
[2018-08-03] MEDS ORDERED: proPOfol 200 MG/20 ML (DIPRIVAN) VIAL IV ONE (09:46)
[2018-08-03] MEDS ORDERED: ONDANSETRON 4 MG/2 ML (SDV) Z0FRAN ONE (09:46)
[2018-08-03] MEDS ORDERED: DEXAMETHASONE 10 MG/ML (DECADRON) 1 ML VIAL ONE (09:46)
[2018-08-03] MEDS ORDERED: fentaNYL INJECTION 100 MCG/2 ML AMP ONE (09:46)
[2018-08-03] MEDS ORDERED: SEVOFLURANE (ULTANE) 15 ML INHAL SOLN ONE (09:46)
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
--- OUTSIDE RECORDS SUMMARY | 2018-08-03 10:14 | XMS REPORT | Clinical Summary ---
Author Author [facility] Organization [facility] Address Unknown Phone Unavailable Care Team Providers Care Retail Store Associate Name Role Phone Yana Chadwick MD 21 Shreyas Puentes MD 3 Eden Hennessy MD PCP Source Comments Some departments are not documenting in the electronic medical record. If you d o not see the information that you expected, contact Release of Information in [facility] [employer] Information Management department at [phone] for further assistan ce in locating additional records.[facility] Allergies Comments Active Allergy Reactions Severity Noted [...] repeat in 5-15 minutes if needed. Active nitroglycerin (NITROSTAT) Place 0.4 mg 0 0.4 mg tablet under tongue every 5 minutes as needed for Chest Pain. Max of 3 tablets, call 911. Active metoprolol XL (TOPROL XL) Take one 90 tablet 0 200 mg extended release tablet by 9 tablet mouth daily. Active cloNIDine (CATAPRESS) 0.2 Take one 180 tablet 3 201 mg tablet tablet by 9 mouth three times daily. Active hydrALAZINE (APRESOLINE) Take one 360 tablet 3 25 mg tablet tablet by 9 mouth three times daily. Active ergocalciferol (VITAMIN Take one 12 capsule 0 D-2) 50,000 unit capsule capsule by 9 mouth every 7 days. Active amLODIPine (NORVASC) 5 mg Take one 90 tablet 1 tablet tablet by 9 mouth daily. Active losartan(+) (COZAAR) 100 TAKE 1 TABLET 90 tablet 3 mg tablet BY MOUTH ONCE 9 DAILY Active gabapentin (NEURONTIN) Take 300 mg 0 300 mg capsule by mouth three times daily. Active nortriptyline (PAMELOR) Take one 30 capsule 5 25 mg capsule capsule by 9 mouth at bedtime daily. Active chlorthalidone (HYGROTON) Take one 45 tablet 1 25 mg tablet tablet by 9 mouth daily. Active spironolactone Take one 90 tablet 3 (ALDACTONE) 50 mg tablet tablet by 9 mouth daily. Take with food. Active methylPREDNIsolone Take 21 tablet 0 (MEDROL DOSEPAK) 4 mg medication as 9 tablet directed on package for 6 days. Take with food. 07/08/2018 Discontinued pregabalin (LYRICA) 150 Take 1 60 capsule 3 mg capsule capsule by 8 mouth twice daily. 07/08/2018 Discontinued methotrexate sodium Take six 72 tablet 0 (RHEUMATREX) 2.5 mg tablets by 9 tablet mouth every 7 days. 07/08/2018 Discontinued spironolactone Take one 90 tablet 3 (ALDACTONE) 25 mg tablet tablet by 9 mouth daily. Take with food. 07/13/2018 Discontinued chlorthalidone (HYGROTON) Take one-half 45 tablet 1 25 mg tablet tablet by 9 mouth daily. Active Problems Problem Noted Date Chronic fatigue and immune dysfunction syndrome 08/02/2018 Chronic daily headache 07/08/2018 Left leg numbness 07/08/2018 Hypersomnia 06/29/2018 Overview: ESS . No sleep paralysis or cataplexy or sleep related hallucinations. L ast Assessment & Plan: Suspect hypersomnia due to untreated MELI. We will re-evaluate after treating the MELI. If he continues to be sleepy even after treating the MELI, we will consider doing MSLT to rule out narcolepsy. Morbid obesity 08/06/2017 Overview: BMI 47.1 L ast Assessment & Plan: Class I (BMI ?30 to 35), class II (BMI ?35 to 40), and class III (BMI ?40). He comes under class 111. Advised him to exercise on a regular basis and watch his diet. I educated him about the importance of losing weight. 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 Valdez S/p PPM implant- Advisa 02/20/16 PSVT (paroxysmal supraventricular tachycardia) 11/02/2016 Resistant hypertension 11/02/2016 MELI (obstructive sleep apnea) 11/02/2016 Overview: Diagnosed of MELI in 2016. Stopped using CPAP due to intolerance. Gained 70 pounds since the last sleep study. Still has snoring, daytime tiredness and sleepiness. L ast Assessment & Plan: Discussed the pathophysiology of MELI and the consequences of untreated MELI which includes HTN, CAD, CVA and arrhythmias. Discussed the most common risk factors for MELI which includes obesity, and overweight. Discussed the treatment options which includes CPAP, oral appliance and inspire. Explained him that CPAP would be the best option for him. We will need to re-evaluate his sleep apnea severity by doing an in lab sleep study. He will need to get the sleep study in the lab due to previous history of severe MELI, morbid obesity and history of arrhythmias. Recommended to lose weight. History of lipoma 09/30/2016 Pain of left thigh 09/30/2016 Pain of left lower leg 09/30/2016 Encounters Care Team Description Date Type Specialty Leander Tovar MD Breathing problem (Primary Dx); MELI (obstructive sleep apnea); PSVT (paroxysmal supraventricular tachycardia) (HCC); NSVT (nonsustained ventricular tachycardia) (HCC); Morbid obesity (HCC); Chronic idiopathic myocarditis; Chronic fatigue and immune dysfunction syndrome (HCC) 08/01/2018 Office Visit Pulmonology Chapin Soto MD Complex regional pain syndrome type 1 of left lower extremity (Primary Dx); Neuropathic pain 07/28/2018 Office Visit Anesthesia Pain Cat Valenzuela RN Lab Results 07/26/2018 Documentation Cardiology Lexi Amezcua MD History of lipoma (Primary Dx); Pain of left thigh; Pain of left lower leg; Morbid obesity (HCC) 07/18/2018 Office Visit Rehabilitation Medicine Roger Blue MD Cardiac Eval (History of hypertension) 07/13/2018 Office Visit Cardiology Saul Altamirano MD 07/12/2018 Hospital Cardiology Encounter Geoff Spivey DO MELI (obstructive sleep apnea) (Primary Dx); Chronic daily headache; Morbid obesity (HCC); Left leg numbness 07/08/2018 Office Visit Neurology Leander Tovar MD Duthuluru, Sowjanya, MD MELI (obstructive sleep apnea) (Primary Dx); Morbid obesity (HCC); Hypersomnia 06/29/2018 Office Visit Pulmonology Shanita Mathis RN Chest Pain (to see local liquor maker) 06/08/2018 Telephone Cardiology Saul Altamirano MD Medication Refill 06/06/2018 Refill Cardiology Cat Valenzuela RN Records Request 06/03/2018 Documentation Cardiology Lexi Amezcua MD Pain of left lower [...] 05/26/2018 Office Visit Oncology Shreyas Puentes MD 05/26/2018 Hospital Radiology Encounter Iwona Lira RN [...] Cardiology Sonal Mariscal Hypertension 05/03/2018 Telephone Cardiology from Last 3 Months Family History [...] Heart problem Paternal Uncle Heart Disease Sister Migraines Sister Relation Name Status Comments Brother Alive [...] Ready to Quit: No; Counseling Given: No Drinks/Week oz/Week Comments Alcohol Use No Sex Assigned at Date Recorded Not on file Industry Job Start Date Occupation Not on file Not on file Not on file Travel End Travel History Travel Start No recent travel history available. Last Filed Vital Signs Reading Time Taken Comments Vital Sign 171/102 08/01/2018 12:48 PM CDT Blood Pressure 71 08/01/2018 12:48 PM CDT Pulse 37.1 C (98.7 F) 07/08/2018 1:09 PM CDT Temperature 12 08/01/2018 12:45 PM CDT Respiratory Rate 99% 08/01/2018 12:45 PM CDT Oxygen Saturation - - Inhaled Oxygen Concentration 138.1 kg (304 lb 6.4 oz) 08/01/2018 12:45 PM CDT Weight 170.2 cm (5' 7") 08/01/2018 12:45 PM CDT Height 47.68 08/01/2018 12:45 PM CDT Body Mass Index Plan of Treatment Health Maintenance Due Date Last Done Comments PHYSICAL (COMPREHENSIVE) 1977 EXAM HIV SCREENING 1985 DTAP/TDAP VACCINES ( - 1988 Tdap) INFLUENZA VACCINE 11/08/2018 Implants Device Identifier Shelf Expiration Date Model / Serial / Lot Implanted Type Area Manufactur er Pacemaker Pacemaker [id number] / [id number] / Medtronic-02/20/2016 Implanted: Qty: 1 on 02/20/2016 by Yumiko Pierre MD Procedures Comments Procedure Name Priority Date/Time Associated Diagnosis BASIC METABOLIC PANEL Routine 07/26/2018 Resistant hypertension RI NERVE CONDUCTION Routine 05/27/2018 History of lipoma STUDIES 3-4 STUDIES 2:45 PM CDT Sarcoma (HCC) Pain of left lower leg RI NEEDLE EMG EA EXTREMTY Routine 05/27/2018 History [...] BASIC METABOLIC PANEL Routine 05/04/2018 Resistant hypertension from Last 3 Months Results * BASIC METABOLIC PANEL (07/26/2018) Only the most recent of 4 results within the time period is included. Sodium 139 [facility] Potassium 3.9 [facility] Chloride 105 [facility] CO2 25 [facility] Blood Urea 13 [facility] Nitrogen Creatinine 1.01 [facility] Glucose 80 [facility] Calcium 9.1 [facility] eGFR Non >60 [facility] eGFR [facility] Zambian Anion Gap 9 [facility] Specimen Blood - Blood Narrative Performed At Performing Organization Address City/State/Zipcode Phone Number MAIN LAB [address] [place] [address] * SPINE EMG PROCEDURE (05/27/2018 2:45 PM [...] WO/W CONT LT (05/26/2018 8:24 AM CDT) Specimen Impressions Performed At 1.Prior resection of a [...] AM. Performing Organization Address City/State/Zipcode Phone Number RAD RESULTS * FREE CORTISOL-URINE 24 HR (05/19/2018) Cortisol, Free 6 5 - 64 OTHER OUTSIDE Urine, Total LAB Specimen Urine - Urine Narrative Performed At Performing Organization Address City/State/Zipcode Phone Number OTHER OUTSIDE LAB * CALCIUM-URINE 24HR (05/19/2018) Calcium 24 Hr 53.9 100.0 - 300.0 OTHER OUTSIDE LAB Specimen Urine - Urine Narrative Performed At Performing Organization Address City/[facility]/Zipcode Phone Number OTHER OUTSIDE LAB * CORTISOL,SALIVA (05/18/2018) Only the most recent of 2 results within the time period is included. Cortisol, 0.018 0.010 - 0.090 MAIN LAB Sample 2 Specimen Saliva - Salivette Swab Narrative Performed At Performing Organization Address [facility] Phone Number [facility] LAB [address] [place] [address] * 25-OH VITAMIN D (D2 + D3) (05/13/2018 9:13 AM CDT) Vitamin 19.7 (L) 30 - 80 NG/ML [facility] D(25-OH)Total Specimen Blood Performing Organization Address [facility]/Zipcode Phone Number MAIN LAB [address] [place] [address] * THYROID STIMULATING HORMONE-TSH (05/04/2018) TSH 1.06 MAIN LAB Specimen Blood - Blood Performing Organization Address [facility] Phone Number MA[facility] LAB [address] [place] [address] from Last 3 Months Insurance Type Payer Benefit Subscriber ID Effective Phone Address Plan / Dates Group Medicaid [place] [employer] xxxxxxxxxxx 2009- [facility] HEALTH Advance Directives Patient Formula Mixer Explanation Type Date Recorded Advance Directive/DPOA
--- OUTSIDE RECORDS SUMMARY | 2018-08-03 10:14 | XMS REPORT | Encounter Summary ---
Author Author [facility] Organization [facility] Address Unknown Phone Unavailable Care Team Providers Care Front Sight Attacher Name Role Phone Yana Chadwick MD 21 Shreyas Puentes MD 3 Eden Hennessy MD PCP Encounter Details Care Team Description Date Type Department Saul Altamirano MD [address] [facility] [place] [address] [phone] 07/12/2018 [facility] Cardiovascular Medicine Encounter Remote Device Check [phone] Social History Date Tobacco Use Types Packs/Day [...] TABLET BY MOUTH TWICE DAILY FOR ANXIETY 06/06/2018 amLODIPine (NORVASC) 5 mg Take one 90 tablet 1 tablet tablet by mouth daily. 06/24/2016 atorvastatin (LIPITOR) 20 TAKE ONE 0 mg tablet TABLET BY MOUTH ONCE DAILY 05/03/2018 cloNIDine (CATAPRESS) 0.2 Take one 180 tablet 3 mg tablet tablet by mouth three times daily. EPINEPHrine(+) (EPIPEN) 1 Inject 0.3 mg 0 mg/mL injection pen into the (2-Pack) muscle once as needed. Inject 0.3 mg (1 Pen) into thigh if needed for anaphylactic reaction. May repeat in 5-15 minutes if needed. 05/13/2018 ergocalciferol (VITAMIN Take one 12 capsule 0 D-2) 50,000 unit capsule capsule by mouth every 7 days. gabapentin (NEURONTIN) Take 300 mg 0 300 mg capsule by mouth three times daily. 05/03/2018 hydrALAZINE (APRESOLINE) Take one 360 tablet 3 25 mg tablet tablet by mouth three times daily. 09/11/2016 HYDROcodone/acetaminophen TAKE 1 TABLET 0 (NORCO) 7.5/325 mg tablet BY MOUTH FOUR TIMES DAILY 06/07/2018 losartan(+) (COZAAR) 100 TAKE 1 TABLET 90 tablet 3 mg tablet BY MOUTH ONCE DAILY 04/28/2018 metoprolol XL (TOPROL XL) Take one 90 tablet 0 200 mg extended release tablet by tablet mouth daily. nitroglycerin (NITROSTAT) Place 0.4 mg 0 0.4 mg tablet under tongue every 5 minutes as needed for Chest Pain. Max of 3 tablets, call 911. 07/08/2018 nortriptyline (PAMELOR) Take one 30 capsule 5 25 mg capsule capsule by mouth at bedtime daily. 09/21/2016 ondansetron (ZOFRAN ODT) DISSOLVE ONE 0 4 mg rapid dissolve TABLET BY tablet MOUTH EVERY 8 HOURS NEEDED 08/07/2016 topiramate (TOPAMAX) 100 TAKE ONE 1 mg tablet TABLET BY MOUTH TWICE DAILY 06/06/2018 07/13/2018 chlorthalidone (HYGROTON) Take one-half 45 tablet 1 25 mg tablet tablet by mouth daily. documented as of this encounter Plan of Treatment Not on filedocumented as of this encounter Visit Diagnoses Not on filedocumented in this encounter
--- OUTSIDE RECORDS SUMMARY | 2018-08-03 10:14 | XMS REPORT | Encounter Summary ---
Author Author [facility] Organization [facility] Address Unknown Phone Unavailable Care Team Providers Care Cinder Crew Worker Name Role Phone Yana Chadwick MD 21 Shreyas Puentes MD 3 Eden Hennessy MD PCP Reason for Referral * Consult, Test & Treat (Routine) Referred By Contact Referred To Contact Status Reason Specialty Diagnoses / Procedures Roger Blue MD [address] [place] [address] New Request Procedures REQUEST FOR CARDIOLOGY APPOINTMENT * Consult, Test & Treat (Routine) Referred By Contact Referred To Contact Status Reason Specialty Diagnoses / Procedures Roger Blue MD [address] [place] [address] [facility] [address] [place], [place] [id number] New Request Specialty Services Transplant Diagnoses Required Surgery Resistant hypertension Reason for Visit * Reason Comments Cardiac Eval History of hypertension Encounter Details Care Team Description Date Type Department Roger Blue MD [address] [place] [address] [phone] Cardiac Eval (History of hypertension) 07/13/2018 Office Visit The [address] [address] Social History Date Tobacco Use Types Packs/Day [...] Signs Reading Time Taken Comments Vital Sign 158/94 07/13/2018 9:10 AM CDT Blood Pressure 72 07/13/2018 9:10 AM CDT Pulse - - Temperature - - Respiratory Rate 97% 07/13/2018 9:10 AM CDT Oxygen Saturation - - Inhaled Oxygen Concentration 137.7 kg (303 lb 9.6 oz) 07/13/2018 9:10 AM CDT Weight 170.2 cm (5' 7") 07/13/2018 9:10 AM CDT Height 47.55 07/13/2018 9:10 AM CDT Body Mass Index documented in this [...] as of this encounter Progress Notes * Roger Blue MD - 07/13/2018 8:45 AM CDT Date of Service: 07/13/2018 Trent Velásquez Jr. is a 47 y.o. male. HPI Mr. Negrete comes today for follow-up for resistant hypertension. As you know he i s a remarkably pleasant gentleman with morbid obesity, obstructive sleep apnea, history of suspected myocarditis, history of nonsustained VT and chronic headach es. I see him for resting hypertension. He has been somewhat erratic about com municating his blood pressure readings to me in [facility] what was concerning for a stroke but eventually ruled out. The saurav ent had severely elevated blood pressure though he does not remember the reading and felt that one side of his body was weak. I do not have details from this h ospitalization but he informs me that it was told that he does not have a stroke just high blood pressure. The patient still does not have a CPAP as he needs a repeat sleep study. He has seen a sleep specialist and they requested a sleep study but insurance is an is herlinda and he is working through this. He has gained about 40 pounds since I last saw him which is obviously very concerning. He says that he eats right but obvi ously there is some disconnect especially salt intake. He reports compliance wi th his medications but then he is confident he is not taking hydralazine 3 times a week His secondary cause work-up was negative for hypertension related to secondary causes except for low vitamin D which she is working with our endocrinology col leagues to get the level normalized at that can also cause hypertension He continues to struggle with headaches. Describes them as diffuse, unpredictab le without radiation and without a throbbing characteristics. They have not wor sened recently and he is seeing Dr. Albright in our neurology department for thi s. Some of these I feel could be contributed to by poorly controlled blood pres sure though he likely has chronic nonspecific headaches also. He denies any allie rtness of breath orthopnea PND or significant lower extremity edema. He does no t smoke. He does not drink alcohol in any large quantities. He lives in [facility] with his girlfriend and has been for a year after about 30 y ears of marriage Vitals: 07/13/18 0910 BP: (!) 158/94 Pulse: 72 SpO2: 97% Weight: (!) 137.7 kg (303 lb 9.6 oz) Height: 1.702 m (5' 7") Body mass index is 47.55 kg/m. Past Medical History Patient Active Problem List Diagnosis Date Noted Chronic daily headache 07/08/2018 Left leg numbness 07/08/2018 Hypersomnia 06/29/2018 ESS . No sleep paralysis or cataplexy or sleep related hallucinations. Morbid obesity (HCC) 08/06/2017 BMI 47.1 Coxsackie viruses 04/28/2017 Sarcoma (HCC) 04/28/2017 Tobacco abuse 04/28/2017 Myocarditis (HCC) 02/26/2017 NSVT (nonsustained ventricular tachycardia) ([facility]) 02/26/2017 Cardiac device in situ 01/14/2017 Sinus node dysfunction ([facility]) 11/02/2016 Dr. Valdez S/p PPM implant- Advisa 02/20/16 PSVT (paroxysmal supraventricular tachycardia) ([facility]) 11/02/2016 Resistant hypertension 11/02/2016 MELI (obstructive sleep apnea) 11/02/2016 Diagnosed of MELI in 2016. Stopped using CPAP due to intolerance. Gained 70 kimberly nds since the last sleep study. Still has snoring, daytime tiredness and sleepin ess. History of lipoma 09/30/2016 Pain of left thigh 09/30/2016 Pain of left lower leg 09/30/2016 Review of Systems Constitution: Negative. HENT: Negative. Eyes: Negative. Cardiovascular: Positive for dyspnea on exertion and irregular heartbeat. Respiratory: Positive for shortness of breath. Endocrine: Negative. Hematologic/Lymphatic: Negative. Skin: Negative. Musculoskeletal: [...] clear to auscultation, no rales, rhonchi, or whee zing Cardiac Rhythm: regular rhythm and normal rate Cardiac Auscultation: Normal S1 & S2, no S3 or S4, no rub Murmurs: no cardiac murmurs Extremities: pedal pulses normal, No pedal edema. Abdominal Exam: soft, non-tender, no masses, bowel sounds normal Liver & Spleen: no organomegaly Neurologic Exam: neurological assessment grossly intact Problems Addressed Today No diagnosis found. Assessment and Plan In summary, I continue to be extremely concerned about his poorly controlled hyp ertension and hypertension risks. Our plan for him is the followin. He will try to get his sleep study done as soon as possible and get CPAP 2. Discuss possible bariatric surgery with his primary care physician to see if she thinks this may be something that works for him. I will be happy to write a strong letter of benefit 3. We are scheduling him to see a nutritional counselor at soon to discuss hi s diet especially with the view of salt restriction. I think he is eating a lot more salt than he thinks he has 4. Medication changes as follows: Increase the dose of chlorthalidone to 25 mg d aily and start spironolactone at 50 mg daily. We emphasized the need to take hy dralazine 25 mg 3 times daily and all his other medications 5. Given him a prescription for getting an arm sphygmomanometer with a large cuf f and have requested them again to send us to weekly readings through my chart I spent 30 minutes with the patient today in a [id number] discussion about his risks for hypertension and diet and medication management Current Medications (including today's revisions) ALPRAZolam (XANAX) 1 mg tablet TAKE ONE TABLET BY MOUTH TWICE DAILY FOR ANXI ETY amLODIPine (NORVASC) 5 mg tablet Take one tablet by mouth daily. (Patient shelly perez differently: Take 10 mg by mouth daily.) [...] TAKE 1 TABLET BY MOUTH ONCE DAILY metoprolol XL (TOPROL XL) 200 mg extended [...] MOUTH TWICE DAILY documented in this encounter Miscellaneous Notes * Addendum Note - Cat Sunshine RN - 07/13/2018 8:45 AM CDT Addended by: CAT SUNSHINE on: 07/13/2018 10:21 AM Modules accepted: Orders * Addendum Note - Cat Sunshine RN - 07/13/2018 8:45 AM CDT Addended by: CAT SUNSHINE on: 07/13/2018 09:58 AM Modules accepted: Orders documented in this encounter Plan of Treatment Order Schedule Name Type Priority Associated Diagnoses Ordered: 07/13/2018 AMB REFERRAL TO NUTRITION Outpatient Routine Resistant hypertension Referral documented as of this encounter Results * BASIC METABOLIC PANEL (07/26/2018) Sodium 139 [facility] Potassium 3.9 [facility] Chloride 105 [facility] CO2 25 [facility] Blood Urea 13 [facility] Nitrogen Creatinine 1.01 [facility] Glucose 80 [facility] Calcium 9.1 [facility] eGFR Non >60 [facility] eGFR [facility] Mozamb[place] Anion Gap 9 [facility] Specimen Blood - Blood Narrative Performed At Performing Organization Address City/State/Zipcode Phone Number MAIN LAB [address] [place] [address] documented in this encounter Visit Diagnoses Diagnosis Resistant hypertension - Primary documented in this encounter
--- OUTSIDE RECORDS SUMMARY | 2018-08-03 10:14 | XMS REPORT | Encounter Summary ---
Author Author [facility] Organization [facility] Address Unknown Phone Unavailable Care Team Providers Care Can Repairer Name Role Phone Yana Chadwick MD 21 Shreyas Puentes MD 3 Eden Hennessy MD PCP Reason for Visit * Reason Comments Pain eval pain pump Pain Encounter Details Care Team Description Date Type Department Chapin Soto MD [address] [place] [address] [phone] Complex regional pain syndrome type 1 of left lower extremity (Primary Dx); Neuropathic pain 07/28/2018 Office Visit [facility] [address] [address] Social History Date Tobacco Use Types Packs/Day [...] Signs Reading Time Taken Comments Vital Sign - - Blood Pressure - - Pulse - - Temperature 16 07/28/2018 8:23 AM CDT Respiratory Rate 99% 07/28/2018 8:23 AM CDT Oxygen Saturation - - Inhaled Oxygen Concentration 136.1 kg (300 lb) 07/28/2018 8:23 AM CDT Weight 170.2 cm (5' 7") 07/28/2018 8:23 AM CDT Height 46.99 07/28/2018 8:23 AM CDT Body Mass Index documented in [...] this encounter Patient Instructions * Patient Instructions* Dejan Morse - 07/28/2018 1:00 PM CDT It was nice to see you today. Thank you for choosing to visit our clinic. Your time is important and if you had to wait today, we do apologize. Our goal i s to run exactly on time; however, on occasion, we get behind in clinic due to u nexpected patient issues. Thank you for your patience. General Instructions: How to reach me: Please send a [employer] message to the [facility] or leave a voicemail for my nurse, Juvenal, at [phone]. How to get a medication refill: Please use the [employer] Refill request or cont act your pharmacy directly to request medication refills. Please allow 72 busine ss hours for request to be completed. How to receive your test results: If you have signed up for [employer], you will receive your test results and messages from me this way. Otherwise, you will get a phone call or letter. If you are expecting results and have not heard from my office within 2 weeks of your testing, please send a [employer] message or call my office. Scheduling: Our scheduling phone number is [phone]. Appointment Reminders on your cell phone: Make sure we have your cell phone n ze, and Text [facility] to [phone]. Support for many chronic illnesses is available through [facility]: [email or web address] or [phone]. For questions on nights, weekends or holidays, call the Booster Plant Operator at , and ask for the doctor reclamation engineer for Anesthesia Pain Management. Again, thank you for coming in today. documented in this encounter Progress Notes * Chapin Soto MD - 07/28/2018 1:00 PM CDT [facility] CLINIC NOTE SUBJECTIVE: Mr. Velásquez presents in follow-up for ongoing care regarding left lower extremity pain. Pain is in the lateral thigh described as intermittently sharp and dull. Walking same may exacerbate the pain pain is improved with rest. Pa in stems from trauma to the left lower extremity resulting in CRPS. Left lumbar sympathetic blocks have been helpful in reducing pain by about 50% for about 1 month at a time. He feels that his pain is exacerbated due to a torn meniscus w hich is scheduled to be repaired. For pain relief he takes hydrocodone 10/325 m g about 3-4 times per day. Review of Systems Constitutional: Negative. HENT: Negative. Eyes: Negative. Respiratory: Negative. Cardiovascular: Positive for palpitations and leg swelling. Gastrointestinal: Negative. Endocrine: Negative. Genitourinary: Negative. Musculoskeletal: Negative. Skin: Negative. Allergic/Immunologic: Negative. Neurological: Positive for numbness. Hematological: Negative. Psychiatric/Behavioral: Negative. All other systems reviewed and are negative. Current Outpatient Medications: ALPRAZolam (XANAX) 1 mg tablet, TAKE ONE TABLET BY MOUTH TWICE DAILY FOR AN XIETY, Disp: , Rfl: 0 amLODIPine (NORVASC) 5 mg tablet, Take one tablet by mouth daily. (Patient taking differently: Take 10 mg by mouth daily.), Disp: 90 tablet, Rfl: 1 atorvastatin (LIPITOR) 20 mg tablet, TAKE ONE TABLET BY MOUTH ONCE DAILY, D isp: , Rfl: 0 chlorthalidone (HYGROTON) 25 mg tablet, Take one tablet by mouth daily., Di sp: 45 tablet, Rfl: 1 cloNIDine (CATAPRESS) 0.2 mg tablet, Take one tablet by mouth three times d aily., Disp: 180 tablet, Rfl: 3 EPINEPHrine(+) (EPIPEN) 1 mg/mL injection pen (2-Pack), Inject 0.3 mg into the muscle once as needed. Inject 0.3 mg (1 Pen) into thigh if needed for anaphy lactic reaction. May repeat in 5-15 minutes if needed., Disp: , Rfl: ergocalciferol (VITAMIN D-2) 50,000 unit capsule, Take one capsule by mouth every 7 days., Disp: 12 capsule, Rfl: 0 gabapentin (NEURONTIN) 300 mg capsule, Take 300 mg by mouth three times santosh ly., Disp: , Rfl: hydrALAZINE (APRESOLINE) 25 mg tablet, Take one tablet by mouth three times daily., Disp: 360 tablet, Rfl: 3 HYDROcodone/acetaminophen (NORCO) 7.5/325 mg tablet, TAKE 1 TABLET BY MOUTH FOUR TIMES DAILY, Disp: , Rfl: 0 losartan(+) (COZAAR) 100 mg tablet, TAKE 1 TABLET BY MOUTH ONCE DAILY, Disp : 90 tablet, Rfl: 3 methylPREDNIsolone (MEDROL DOSEPAK) 4 mg tablet, Take medication as directe d on package for 6 days. Take with food., Disp: 21 tablet, Rfl: 0 metoprolol XL (TOPROL XL) 200 mg extended release tablet, Take one tablet b y mouth daily., Disp: 90 tablet, Rfl: 0 nitroglycerin (NITROSTAT) 0.4 mg tablet, Place 0.4 mg under tongue every 5 minutes as needed for Chest Pain. Max of 3 tablets, call 911., Disp: , Rfl: nortriptyline (PAMELOR) 25 mg capsule, Take one capsule by mouth at bedtime daily., Disp: 30 capsule, Rfl: 5 ondansetron (ZOFRAN ODT) 4 mg rapid dissolve tablet, DISSOLVE ONE TABLET BY MOUTH EVERY 8 HOURS NEEDED, Disp: , Rfl: 0 spironolactone (ALDACTONE) 50 mg tablet, Take one tablet by mouth daily. Ta ke with food., Disp: 90 tablet, Rfl: 3 topiramate (TOPAMAX) 100 mg tablet, TAKE ONE TABLET BY MOUTH TWICE DAILY, D isp: , Rfl: 1 Allergies Allergen Reactions Adhesive Tape (Rosins) BLISTERS Wasps [Venom-Wasp] ANAPHYLAXIS Aspirin RASH Penicillins RASH Physical Exam Vitals: 07/28/18 0823 07/28/18 0832 BP: (!) (P) 159/111 (!) (P) 171/98 Pulse: (P) 85 (P) 69 Resp: 16 SpO2: 99% (P) 99% Weight: 136.1 kg (300 lb) Height: 170.2 cm (67") Oswestry Total Score:: (P) 40 Pain Score: Ten Body mass index is 46.99 kg/m. General: Alert and oriented, very pleasant female. HEENT showed extraocular muscles were intact and no other abnormalities. Unlabored breathing. Regular rate and rhythm on CV exam. 4/5 strength in left lower extremity. Sensation is intact to light touch and equal in the upper and lower extremities. IMPRESSION: 1. Complex regional pain syndrome type 1 of left lower extremity 2. Neuropathic pain PLAN: Will provide a Medrol Dosepak and continue with hydrocodone per Dr. Hennessy. Mr. Velásquez will follow-up in 2 months. He is scheduled for left knee meniscus r epair and will we will see how his pain is doing after that procedure documented in this encounter Plan of Treatment Not on filedocumented as of this encounter Visit Diagnoses Diagnosis Complex regional pain syndrome type 1 of left lower extremity - Primary Neuropathic pain Neuralgia, neuritis, and radiculitis, unspecified documented in this encounter
--- OUTSIDE RECORDS SUMMARY | 2018-08-03 10:14 | XMS REPORT | Encounter Summary ---
Author Author [facility] Organization [facility] Address Unknown Phone Unavailable Care Team Providers Care Hydro Plant Site Manager Name Role Phone Yana Chadwick MD 21 Shreyas Puentes MD 3 Eden Hennessy MD PCP Reason for Visit * Reason Comments Lab Results Encounter Details Care Team Description Date Type Department Cat Valenzuela RN Lab Results 07/26/2018 Documentation The [address] [place] [address] Social History Date Tobacco Use Types Packs/Day [...] BASIC METABOLIC PANEL Routine 07/26/2018 Resistant hypertension documented in this encounter Results [...] [facility] eGFR [facility] Vietnamese Anion Gap 9 [facility] Specimen Blood - Blood Narrative Performed At Performing Organization Address City/State/Zipcode Phone Number [facility] [address] [place] [address] documented in this encounter Visit Diagnoses Diagnosis Resistant hypertension documented in this encounter
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
--- OUTSIDE RECORDS SUMMARY | 2018-08-03 10:15 | XMS REPORT | Encounter Summary ---
Author Author [facility] Organization [facility] Address Unknown Phone Unavailable Care Team Providers Care Brainer Name Role Phone Yana Chadwick MD 21 Shreyas Puentes MD 3 Eden Hennessy MD PCP Reason for Visit * Reason Comments Lab Results Encounter Details Care Team Description Date Type Department Cat Valenzuela RN Lab Results 05/16/2018 Telephone The [facility] [address] [facility] [place] [address] Social History Date Tobacco Use Types Packs/Day [...] AM CDT Roger Blue MD Polley, Kaitlyn, MILDRED I am okay with these labs. Recheck in 1 month. * Telephone Encounter - Cat Valenzuela RN - 05/16/2018 8:56 AM CDT ----- Message from Roger Blue MD sent at 05/13/2018 7:04 PM CDT ----- The patient's labs are overall okay except PTH is high. He has seen endocrinolo gy yesterday and they think it is because of low vitamin D which they are replac ing. I think we will continue current medications and he needs to send us his blood p ressure log and also see pulmonary for obstructive sleep apnea. Thanks documented in this encounter Plan of Treatment Order Schedule Name Type Priority Associated Diagnoses Expected: 06/15/2018 (Approximate), Expires: 05/16/2019 BASIC METABOLIC PANEL Lab Routine Resistant hypertension documented as of this encounter Visit Diagnoses Diagnosis Resistant hypertension - Primary documented in this encounter
--- OUTSIDE RECORDS SUMMARY | 2018-08-03 10:15 | XMS REPORT | Encounter Summary ---
Author Author [facility] Organization [facility] Address Unknown Phone Unavailable Care Team Providers Care Internet Marketing Consultant Name Role Phone Yana Chadwick MD 21 Shreyas Puentes MD 3 Eden Hennessy MD PCP Encounter Details Care Team Description Date Type Department Iwona Lira RN Resistant hypertension 05/30/2018 Orders Only The [facility] [address] [facility] [address] [place] [address] Social History Date Tobacco Use [...] Swab Narrative Performed At Performing Organization Address [facility] Phone Number [facility] [address] [place] [address] * CORTISOL,SALIVA (05/17/2018 11:00 PM CDT) Cortisol, 0.054 0.010 - 0.090 MAIN LAB Sample 1 Specimen Saliva - Salivette Swab Narrative Performed At Performing Organization Address [facility] Phone Number [facility] [address] [place] [address] documented in this encounter Visit Diagnoses Diagnosis Resistant hypertension documented in this encounter
--- OUTSIDE RECORDS SUMMARY | 2018-08-03 10:15 | XMS REPORT | Encounter Summary ---
Author Author [facility] Organization [facility] Address Unknown Phone Unavailable Care Team Providers Care Cell Efficiency Supervisor Name Role Phone Yana Chadwick MD 21 Shreyas Puentes MD 3 Eden Hennessy MD PCP Reason for Visit * Reason Comments Records Request Encounter Details Care Team Description Date Type Department Cat Valenzuela RN Records Request 06/03/2018 Documentation The [address] [place] [address] Social History Date Tobacco Use Types Packs/Day [...] as of this encounter Progress Notes * Cat Valenzuela RN - 06/03/2018 8:57 AM CDT Records Request Trent Velásquez 1970 Please fax over the following records from patient's most recent hospitalization : -Any cardiac testing, including EKGs, stress test, and echocardiogram -Radiology testing -Lab work -Discharge summary -Updated medication list Please fax to: Dr. Blue's nurse [facility] Thank you! documented in this encounter Plan of Treatment Not on filedocumented as of this encounter Visit Diagnoses Not on filedocumented in this encounter
--- OUTSIDE RECORDS SUMMARY | 2018-08-03 10:15 | XMS REPORT | Encounter Summary ---
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 P rocedures CT LOWER EXTREM WO CONT LEFT Reason for Visit * Reason Comments Other 1 year FU/CT Encounter Details Care Team Description Date [place] [address] [place], [place] [address] 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) 05/26/2018 Office Visit The [facility] [address] [place], [place] [address] Social History Date Tobacco Use Types Packs/Day [...] Signs Reading Time Taken Comments Vital Sign 156/88 05/26/2018 10:48 AM CDT Blood Pressure 86 05/26/2018 10:48 AM CDT Pulse 36.7 C (98.1 F) 05/26/2018 10:48 AM CDT Temperature 22 05/26/2018 10:48 AM CDT Respiratory Rate 100% 05/26/2018 10:48 AM CDT Oxygen Saturation - - Inhaled Oxygen Concentration 136.1 kg (300 lb) 05/26/2018 10:48 AM CDT Weight 170.2 cm (5' 7") 05/26/2018 10:48 AM CDT Height 46.99 05/26/2018 10:48 AM CDT Body Mass Index documented in [...] the left thigh lipoma over the past dec manisha and we are monitoring in order to assure no signs of local recurrence. His most recent MRI scan demonstrates a fluid collection in the area most consistent with a postoperative seroma but no definitive evidence of local recurrence of d isease. Review of Systems No fevers, chills, night sweats, weight loss or other constitutional symptoms. N o chest pain, shortness of breath, hemoptysis. No adenopathy or cafe au lait spo ts. No bleeding diatheses, spontaneous bruising or other bleeding disorders. No hematuria, hematochezia, head or neck issues nor psychological concerns. Physical Exam Examination of the left thigh reveals no evidence of local recurrence of disease . Motor function of the extremity is 5/5, sensation is grossly intact. No mass es or nodules are appreciated. The wound remains well-healed. Objective: Current Outpatient Medications on File Prior to Visit Medication Sig Dispense Refill ALPRAZolam (XANAX) 1 mg tablet TAKE ONE TABLET BY MOUTH TWICE DAILY FOR ANXI ETY 0 atorvastatin (LIPITOR) 20 mg tablet TAKE ONE TABLET BY MOUTH ONCE DAILY 0 cloNIDine (CATAPRESS) 0.2 mg tablet Take one tablet by mouth three times santosh ly. 180 tablet 3 diltiazem CD (CARDIZEM CD) 300 mg capsule Take 300 mg by mouth every morning . EPINEPHrine(+) (EPIPEN) 1 mg/mL injection pen (2-Pack) Inject 0.3 mg into th e muscle once as needed. Inject 0.3 mg (1 Pen) into thigh if needed for anaphyla ctic reaction. May repeat in 5-15 minutes if needed. ergocalciferol (VITAMIN D-2) 50,000 unit capsule Take one capsule by mouth e very 7 days. 12 capsule 0 hydrALAZINE (APRESOLINE) 25 mg tablet Take one tablet by mouth three times d aily. 360 tablet 3 HYDROcodone/acetaminophen (NORCO) 7.5/325 mg tablet TAKE 1 TABLET BY MOUTH F OUR TIMES DAILY 0 losartan(+) (COZAAR) 100 mg tablet Take 1 tablet by mouth daily. 90 tablet 3 methotrexate sodium (RHEUMATREX) 2.5 mg tablet Take six tablets by mouth ulma ry 7 days. 72 tablet 0 metoprolol XL [...] M OUTH EVERY 8 HOURS NEEDED 0 pregabalin (LYRICA) 150 mg capsule Take 1 capsule by mouth twice daily. 60 c apsule 3 spironolactone (ALDACTONE) 25 mg tablet Take [...] scan in March 09, 2018 which also demonst rates no evidence of recurrence of the tumor findings only consistent with posts urgical changes being evident. Patient is unable to undergo an MRI secondary to stainless steel tubes in eyes. Assessment and Plan: The lesion represents a benign, latent process: Atypical lipoma. 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 As discussed previously, I will monitor the le jb on a biannual basis for a minimum of two years to ensure stability and late ncy. If there are ever any clinical or radiographic changes, then biopsy or exci jb would be considered. Thus far, the lesion demonstrates its benign, latent c haracter, and therefore we will continue to monitor as indicated above. The saurav ent is educated as to the signs to look for referable to a transformation of the lesion. Patient would also like to consider pain pumps and stimulators in the f uture and will speak with Dr. Amezcua about this at his upcoming appointment. He will return to the clinic in [address] LLE. 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
--- OUTSIDE RECORDS SUMMARY | 2018-08-03 10:15 | XMS REPORT | Encounter Summary ---
Author Author [facility] Organization [facility] Address Unknown Phone Unavailable Care Team Providers Care Information Systems Security Manager Name Role Phone Yana Chadwick MD 21 Shreyas Puentes MD 3 Eden Hennessy MD PCP Reason for Visit * Reason Comments Medication Refill Encounter Details Care Team Description Date Type Department Saul Altamirano MD [address] [address] [phone] Medication Refill 06/06/2018 Refill The [facility] [address] [address] Social History Date Tobacco Use Types Packs/Day [...]
--- OUTSIDE RECORDS SUMMARY | 2018-08-03 10:15 | XMS REPORT | Encounter Summary ---
Author Author [facility] Organization [facility] Address Unknown Phone Unavailable Care Team Providers Care Home Lending Officer Name Role Phone Yana Chadwick MD 21 Shreyas Puentes MD 3 Eden Hennessy MD PCP Encounter Details Care Team Description Date Type Department Iwona Lira RN Resistant hypertension; Hyperparathyroid bone disease (HCC) 05/25/2018 Orders Only The [facility] [address] [address] Social History Date Tobacco Use [...] Urine Narrative Performed At Performing Organization Address [facility] Phone Number OTHER OUT[facility]IDE LAB documented in this encounter Visit Diagnoses Diagnosis Resistant hypertension Hyperparathyroid bone disease (HCC) Primary hyperparathyroidism documented in this encounter
--- OUTSIDE RECORDS SUMMARY | 2018-08-03 10:15 | XMS REPORT | Encounter Summary ---
Author Author [facility] Organization [facility] Address Unknown Phone Unavailable Care Team Providers Care Commercial Retoucher Name Role Phone Yana Chadwick MD 21 Shreyas Puentes MD 3 Eden Hennessy MD PCP Reason for Visit * Reason Comments Chest Pain to see local claim representative Encounter Details Care Team Description Date Type Department Shanita Mathis RN Chest Pain (to see local claim representative) 06/08/2018 Telephone [facility] [address] [facility] [place] [address] Social History Date Tobacco Use Types Packs/Day [...] encounter Miscellaneous Notes * Telephone Encounter - Shanita Mathis RN - 06/08/2018 10:42 AM CDT Dsicussed with MPE/nurse who recommend pt be evaluated by local claim representative for further recommendations. Returned call to pt to discuss, informed him of MPE/nurse recommendations. Pt st ates he isn't sure they will see him but he will try. PT to CB if they decline t o see him and/or to let us know how everything turns out. Pt states understandin g and is agreeable to plan. No further questions or concerns at this time. * Telephone Encounter - Shanita Mathis RN - 06/08/2018 10:20 AM CDT Received Symphogenhart message pt reporting chest pain, BP variability. Placed call to pt to discuss. He states his BP continues to be high, highest BP was 201/119 and he went to [facility] due to concerns for stroke. He states they discharged him from ED with BP 178/114 with instructions to see doctor to viki romero BP. Pt states he goes to local PCP office every day for BP check. He stat es top number usually about 150-160+ and bottom number is always over 90. He con firmed He states he has had dull chest pain in chest for the [facility] He reports pain comes and goes. Pain gets worse with deep breaths. Does not report anything makes it better. Denies sudden onset. States he just no ticed it when he woke up two days ago. He has not tried tylenol or anything to t ry to resolve the pain. He states his headaches have been getting worse. He wakes up with a headache luma ry day. He reports he has done a sleep study and was diagnosed with sleep apnea but is not currently wearing the mask. He reports after they moved they had a pr oblem with ants and they got inside his machine and broke it. He states the comp any declined to fix it due to ants and insurance denied a new sleep study and ne w mask. He states it has been about 2 years since he wore his sleep mask. I note pt has OV coming up 06/29 with pulm for new cpap management. He reports SOA with any activity, like walking from car to his front door. This resolves quickly when he sits to rest. Will review concerns with MPE and f/u with pt with recommendations. Pt states un derstanding and is agreeable to plan. No further questions or concerns at this t lidia. * Telephone Encounter - Shanita Mathis RN - 06/08/2018 10:15 AM CDT Regarding: RE: RE: Prescription Question Contact: ----- Message from Emily Gale sent at 06/08/2018 9:51 AM CDT ----- For the past two days just had a doll pain and my chest and I get shortness of b reath if I do anything help my blood pressure just up and down could it be the p ericarditis whatever that is you know the information of the heart we really nee d to get that heart scan done again or something else for something happens brian I just don't feel good ----- Message ----- From: NURSE Hellen Funes Sent: 06/07/18 7:32 AM To: Trent Velásquez Jr. Subject: RE: Prescription Question Refill sent! Tiffany LEVY ----- Message ----- From: Trent Velásquez Jr. Sent: 06/06/2018 7:21 PM CDT To: Saul Altamirano MD Subject: Prescription Question I need refill orders losartan [facility] in [facility] thank you documented in this encounter Plan of Treatment Not on filedocumented as of this encounter Visit Diagnoses Not on filedocumented in this encounter
--- OUTSIDE RECORDS SUMMARY | 2018-08-03 10:15 | XMS REPORT | Encounter Summary ---
Author [facility] Address Unknown Phone Unavailable Care Team Providers Care Instrument Mechanic Name Role Phone Yana Chadwick MD 21 Shreyas Puentes MD 3 Eden Hennessy MD PCP Reason for Visit * Reason Comments Critical Result Encounter Details Care Team Description Date Type Department Glenys Kessler MD [address] [facility] Lvl [address] [place] [id number] [phone] Critical Result 05/13/2018 Telephone [facility] [address] [address] Social History Date Tobacco Use [...]
--- OUTSIDE RECORDS SUMMARY | 2018-08-03 10:15 | XMS REPORT | Encounter Summary ---
Author Author [facility] Organization [facility] Address Unknown Phone Unavailable Care Team Providers Care Embedded Engineer Name Role Phone Yana Chadwick MD 21 Shreyas Puentes MD 3 Eden Hennessy MD PCP Reason for Visit * Reason Comments Pain Encounter Details Care Team Description Date Type [place] [address] [place], [place] [id number] Pain of left lower leg (Primary Dx); Sarcoma (HCC); History of lipoma; Pain of left thigh 05/30/2018 Office Visit [facility] [address] [place], [place] [address] Social History Date Tobacco Use Types Packs/Day [...] Signs Reading Time Taken Comments Vital Sign 150/84 05/30/2018 8:15 AM CDT Blood Pressure 78 05/30/2018 8:15 AM CDT Pulse - - Temperature - - Respiratory Rate 97% 05/30/2018 8:15 AM CDT Oxygen Saturation - - Inhaled Oxygen Concentration 136.1 kg (300 lb) 05/30/2018 8:15 AM CDT Weight 170.2 cm (5' 7") 05/30/2018 8:15 AM CDT Height 46.99 05/30/2018 8:15 AM CDT Body Mass Index documented in [...] LLE lipoma s/p resection x 4 in [place] with the last in 2015 who is seen on 05/30/[address] [facility] [place] for follow up evaluation and treatment of [...] change in bowel and bladder functi on. Past Medical History: Diagnosis Date Anxiety Cancer [...] tablets by mouth luma ry 7 days. 72 tablet 0 metoprolol [...] CT Lower extremity . Routine surveillance CT w ithout any recurrent or residual atypical lipoma noted. Continued scar and resi dual edema around surgical area. Triple phase bone scan - no evidence supporting CRPS EMG 05/27/18: no electrodiagnostic evidence for lumbar radiculopathy, polyneuropa thy or mononeuropathy. IMPRESSION: 1. Pain of left lower leg 2. Sarcoma (HCC) 3. History of lipoma 4. Pain of left thigh In summary, this is a 47 y.o. year old male with a history of LLE lipoma s/p re section x4 in [place] with the last in 2015. History and [...] find a neuropathic treatment option or interventional treat ment option to relieve his left lower extremity pain, this may be necessary. He is not satisfied with his current provider ("makes it difficult to get rx"), but discussed that we do not do mcc opioid mgmt at the spine center. We [...] LLE completed Wednesday and reviewed with the patien t 5. Follow up: will plan to see [...]
--- OUTSIDE RECORDS SUMMARY | 2018-08-03 10:15 | XMS REPORT | Encounter Summary ---
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 CT LOWER EXTREM WO/W CONT LT * Radiology Services Referred By Contact Referred To Contact Status Reason Specialty Diagnoses / [place] [address] [place] [address] [address] [place] [address] Closed Radiology Diagnoses 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 CT LOWER EXTREM WO/W CONT LT Reason for Visit * Radiology Services Referred By Contact Referred To Contact Status Reason Specialty Diagnoses / [place] [address] Med Office d [address] [place] [address] [place] [address] Closed Radiology Diagnoses 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 09/03/2017 06/06/2018 losartan(+) (COZAAR) 100 Take 1 tablet 90 tablet 3 mg tablet by mouth daily. 03/10/2018 07/08/2018 methotrexate sodium Take six 72 tablet 0 (RHEUMATREX) 2.5 mg tablets by tablet mouth every 7 days. 08/25/2017 07/08/2018 pregabalin (LYRICA) 150 Take 1 60 capsule 3 mg capsule capsule by mouth twice daily. 04/28/2018 07/08/2018 spironolactone Take one 90 tablet 3 (ALDACTONE) 25 mg tablet tablet by mouth daily. Take with food. documented as of this encounter Plan of [...]
--- OUTSIDE RECORDS SUMMARY | 2018-08-03 10:15 | XMS REPORT | Encounter Summary ---
Author Author [facility] Organization [facility] Address Unknown Phone Unavailable Care Team Providers Care Rn Call Center Name Role Phone Yana Chadwick MD 21 Shreyas Puentes MD 3 Eden Hennessy MD PCP Reason for Referral * Pain Authorization (Routine) Referred By Contact Referred To Contact Status Reason Specialty Diagnoses / [place] [address] [place] [address] Geoff Spivey DO [address] [facility] [place] [address] Closed Neurology Diagnoses History of lipoma Sarcoma (HCC) Pain of left lower leg P rocedures SPINE EMG PROCEDURE Reason for Visit * Reason Comments Pain * Pain Authorization (Routine) Referred By Contact Referred To Contact Status Reason Specialty Diagnoses / [place] [address] [address] [place] [address] Geoff Spivey DO [address] [facility] [place] [address] Closed Neurology Diagnoses History of lipoma Sarcoma (HCC) Pain of left lower leg P rocedures SPINE EMG PROCEDURE Encounter Details Care Team Description Date Type Department Geoff Spivey DO [address] [facility] [place] [address] [phone] History of lipoma; Sarcoma (HCC); Pain of left lower leg 05/27/2018 Procedure visit [facility] [address] [address] Social History Date Tobacco Use Types Packs/Day [...] Signs Reading Time Taken Comments Vital Sign 175/114 05/27/2018 2:08 PM CDT Blood Pressure 75 05/27/2018 2:08 PM CDT Pulse - - Temperature 17 05/27/2018 2:08 PM CDT Respiratory Rate 97% 05/27/2018 2:08 PM CDT Oxygen Saturation - - Inhaled Oxygen Concentration 133.8 kg (295 lb) 05/27/2018 2:08 PM CDT Weight 170.2 cm (5' 7") 05/27/2018 2:08 PM CDT Height 46.2 05/27/2018 2:08 PM CDT Body Mass Index documented in [...] CDT Associated Order(s): SPINE EMG PROCEDURE Procedure(s): IA NERVE CONDUCTION STUDIES 3-4 STUDIES; IA NEEDLE EMG EA EXTREMTY W/PARASPINL AREA COMPLETE Pre-Procedure Diagnose(s): History of lipoma; Sarcoma (HCC); Pain of left lower leg Post-Procedure Diagnose(s): Pain of left lower leg Please refer to EMG report for study results. No separate note placed for proce dure. Patient well tolerated the procedure and was sent home with no complicati ons. RTC with Dr. Amezcua. documented in this encounter Plan of Treatment Not on filedocumented as of this encounter Procedures Comments Procedure Name Priority Date/Time Associated Diagnosis IA NERVE CONDUCTION Routine 05/27/2018 History of lipoma STUDIES 3-4 STUDIES 2:45 PM CDT Sarcoma (HCC) Pain of left lower leg IA NEEDLE EMG EA EXTREMTY Routine 05/27/2018 History [...]
--- OUTSIDE RECORDS SUMMARY | 2018-08-03 10:15 | XMS REPORT | Encounter Summary ---
Author Author [facility] Organization [facility] Address Unknown Phone Unavailable Care Team Providers Care Front Office Specialist Name Role Phone Yana Chadwick MD 21 Shreyas Puentes MD 3 Eden Hennessy MD PCP Reason for Referral * Consult, Test & Treat Referred By Contact Referred To Contact Status Reason Specialty Diagnoses / Procedures Lois Sosa MD [address] [facility] [address] [place] [address] Rb - Sleep Disordr Ctr [address] [facility] [address] [place] [address] New Request Specialty Services Sleep Center Diagnoses Required SANTIAGO (obstructive sleep apnea) Scheduling Instructions Neck circumference may be a required measurement for sleep study prior authorization and/or claim payment. Has neck circumference been obtained? no Neck Circumference (In Inches): Reason for Visit * Reason Comments Breathing Problem * Consult, Test & Treat (Routine) Referred By Contact Referred To Contact Status Reason Specialty Diagnoses / Procedures Leander Tovar MD [address] [facility] Ortho/Med Pavilion [address] [place] [address] [facility] [address] [place] [address] New Request Specialty Services Pulmonology Diagnoses Required CPAP (continuous positive airway pressure) dependence SANTIAGO (obstructive sleep apnea) Encounter Details Care Team Description Date Type Department Leander Tovar MD [address] Ortho[facility]Med Pavilion [address] [place] [address] Lois Sosa MD [address] [place] [address] SANTIAGO (obstructive sleep apnea) (Primary Dx); Morbid obesity (HCC); Hypersomnia 06/29/2018 Office Visit [facility] [address] [facility] [address] [place] [address] Social History Date Tobacco Use [...] Signs Reading Time Taken Comments Vital Sign 151/101 06/29/2018 8:45 AM CDT Blood Pressure 77 06/29/2018 8:45 AM CDT Pulse - - Temperature 16 06/29/2018 8:45 AM CDT Respiratory Rate 100% 06/29/2018 8:45 AM CDT Oxygen Saturation - - Inhaled Oxygen Concentration 136.5 kg (301 lb) 06/29/2018 8:45 AM CDT Weight 170.2 cm (5' 7") 06/29/2018 8:45 AM CDT Height 47.14 06/29/2018 8:45 AM CDT Body Mass Index documented in [...] this encounter Patient Instructions * Patient Instructions* Theresa Lou LPN - 06/29/2018 9:30 AM CDT If you have any questions or concerns, you can call my nurse, Theresa Lou at A sleep study has been ordered for you by your physician. Our records show that you do not currently have health insurance, or have health insurance that does not cover the cost of a sleep study. However, arrangements may be made to obtain a study with financial assistance from [facility]. These arrangements are made by the patient financial services office and are don e on a case by case basis. We must have the approval from financial services be fore we can schedule your sleep study. Please contact Aaronuyen Milton in the business office at [phone] to make payme nt arrangements. Ms. Rose will inform us when the proper arrangements have be en made at which time we will contact you to schedule your sleep study. Thank you. [facility] [address] [place] [id number] documented in this encounter Progress Notes * Lois Sosa MD - 06/29/2018 9:30 AM CDT Subjective: History of Present Illness Trent Velásquez Jr. is a 47 y.o. male with past medical history of obstructive s leep apnea, paroxysmal supraventricular tachycardia, hypertension, nonsustained ventricular tachycardia, myocarditis, obesity, tobacco abuse, PTSD, hyperlipidem ia and sarcoma and leg he is here to establish care with us. He was diagnosed o f obstructive sleep apnea in 2015. He had a baseline sleep study done on 2015 which showed severe sleep apnea with AHI of 52.9. Supine AHI was 5 9.4. Titration study done on 12/09/2015 showed CPAP at a pressure of [address] pressure to be effective. He said the CPAP machine was broken a year and griffith lf ago. He said he moved to a new house in the [facility] and and is gotten permission to start the machine. He said he got the machine through some assist ance program to via [employer]. He said he has gained nearly 70 t o 80 pounds since 2016. He has history of snoring at night. He denies any witn essed apneas at night. He wakes up with gasping and choking episodes at night. He wakes up with headaches in the morning. He feels tired and sleepy during da ytime. He feels refreshed only sometimes in the morning. He watches TV in the bed and terms of when he is really really sleepy. He said he has trouble fallin g asleep and trouble staying asleep. He said he takes an hour and half to fall asleep. He goes to bed usually around 9:00-10:00 PM and wakes up around 4:30 AM at least 2-3 times a week as he has to take his ex- to work. He wakes up a round 9:00-10:00 AM rest of the days when he does not have to take his ex- t o work. He said he naps several times during the day. He said he is currently on disability. He smokes half a pack of cigarettes per day and has been smoking for 20 years. He does not drink alcohol. He does not have any history of depr ession or anxiety. He said he takes Xanax for anger outbursts. He denies any h istory of sleepwalking or sleep eating or sleep talking. ESS . No sleep par alysis or cataplexy or sleep related hallucinations. Review of Systems All ten systems were reviewed and negative except for those in HPI. Objective: ALPRAZolam (XANAX) 1 mg tablet TAKE ONE TABLET BY MOUTH TWICE DAILY FOR ANXI ETY amLODIPine (NORVASC) 5 mg tablet Take one tablet by mouth daily. atorvastatin (LIPITOR) 20 mg tablet TAKE ONE [...] capsule by mouth e very 7 days. hydrALAZINE (APRESOLINE) 25 mg tablet Take one [...] ONE TABLET BY MOUTH TWICE DAILY Vitals: 06/29/18 0845 BP: (!) 151/101 Pulse: 77 Resp: 16 SpO2: 100% Weight: (!) 136.5 kg (301 lb) Height: 170.2 cm (67") Body mass index is 47.14 kg/m. Physical Exam Constitutional: He is oriented to person, place, and time. He appears well-devel oped. HENT: Head: Normocephalic and atraumatic. Eyes: Conjunctivae and EOM are normal. Pupils are equal, round, and reactive to light. Neck: Normal range of motion. Neck supple. Cardiovascular: Normal rate, regular rhythm, normal heart sounds and intact dist al pulses. Pulmonary/Chest: Effort normal and breath sounds normal. Abdominal: Soft. Bowel sounds are normal. Musculoskeletal: Normal range of motion. Neurological: He is alert and oriented to person, place, and time. He has normal reflexes. Skin: Skin is warm and dry. Psychiatric: He has a normal mood and affect. Nursing note and vitals reviewed. Assessment and Plan: Problem Hypersomnia ESS . No sleep paralysis or cataplexy or sleep related hallucinations. Morbid Obesity (Hcc) BMI 47.1 Santiago (Obstructive Sleep Apnea) Diagnosed of SANTIAGO in 2016. Stopped using CPAP due to intolerance. Gained 70 poun ds since the last sleep study. Still has snoring, daytime tiredness and sleepine ss. SANTIAGO (obstructive sleep apnea) Discussed the pathophysiology of SANTIAGO and the consequences of untreated SANTIAGO which includes HTN, CAD, CVA and arrhythmias. Discussed the most common risk factors for SANTIAGO which includes obesity, and overweight. Discussed the treatment options which includes CPAP, oral appliance and inspire. Explained him that CPAP would b e the best option for him. We will need to re-evaluate his sleep apnea severity by doing an in lab sleep study. He will need to get the sleep study in the lab d ue to previous history of severe SANTIAGO, morbid obesity and history of arrhythmias. Recommended to lose weight. Morbid obesity (HCC) Class I (BMI ?30 to 35), class II (BMI ?35 to 40), and class III (BMI ?40). He c omes under class 111. Advised him to exercise on a regular basis and watch his diet. I educated him ab out the importance of losing weight. Hypersomnia Suspect hypersomnia due to untreated SANTIAGO. We will re-evaluate after treating the SANTIAGO. If he continues to be sleepy even after treating the SANTIAGO, we will consider doing MSLT to rule out narcolepsy. RTC in 2-3 months. documented in this encounter Plan of Treatment Order Schedule Name Type Priority Associated Diagnoses Ordered: 06/29/2018 AMB REFERRAL FOR SLEEP Outpatient Routine SANTIAGO (obstructive sleep STUDIES Referral apnea) documented as of this encounter Visit Diagnoses Diagnosis SANTIAGO (obstructive sleep apnea) - Primary Obstructive sleep apnea (adult) (pediatric) Morbid obesity (HCC) Morbid obesity Hypersomnia Hypersomnia, unspecified * Assessment & Plan Note - Lois Sosa MD - 06/29/2018 11:16 AM CDT Associated Problem(s): Hypersomnia Suspect hypersomnia due to untreated SANTIAGO. We will re-evaluate after treating the SANTIAGO. If he continues to be sleepy even after treating the SANTIAGO, we will consider doing MSLT to rule out narcolepsy. * Assessment & Plan Note - Lois Sosa MD - 06/29/2018 11:15 AM CDT Associated Problem(s): Morbid obesity (HCC) Class I (BMI ?30 to 35), class II (BMI ?35 to 40), and class III (BMI ?40). He c omes under class 111. Advised him to exercise on a regular basis and watch his diet. I educated him ab out the importance of losing weight. * Assessment & Plan Note - Lois Sosa MD - 06/29/2018 11:10 AM CDT Associated Problem(s): SANTIAGO (obstructive sleep apnea) Discussed the pathophysiology of SANTIAGO and the consequences of untreated SANTIAGO which includes HTN, CAD, CVA and arrhythmias. Discussed the most common risk factors for SANTIAGO which includes obesity, and overweight. Discussed the treatment options which includes CPAP, oral appliance and inspire. Explained him that CPAP would b e the best option for him. We will need to re-evaluate his sleep apnea severity by doing an in lab sleep study. He will need to get the sleep study in the lab d ue to previous history of severe SANTIAGO, morbid obesity and history of arrhythmias. Recommended to lose weight. documented in this encounter
--- OUTSIDE RECORDS SUMMARY | 2018-08-03 10:16 | XMS REPORT | Encounter Summary ---
Author Author [facility] Organization [facility] Address Unknown Phone Unavailable Care Team Providers Care Ticket Sales Supervisor Name Role Phone Yana Chadwick MD 21 Shreyas Puentes MD 3 Eden Hennessy MD PCP Reason for Visit * Reason Comments Hypertension Encounter Details Care Team Description Date Type Department Sonal Mariscal Hypertension 05/03/2018 Telephone The [facility] [address] [place] [address] Social History Date Tobacco Use Types Packs/Day [...] follow up. Patient states he is "feeling bett er" today, but feels "exhausted." Patient's BP has improved, however, to 140/96 . Patient states he had labs drawn this morning at [facility]. He states he w as instructed to go to [facility] from [facility]. Will request lab resu lts to be sent. Reassured patient fatigue is sometimes common when BP comes down after being eleanor vated for a long time. Pt verbalizes understanding. Will continue to monitor B P and will call if symptoms do not [...] Metoprolol 200 mg daily, and Losartan 100 m g daily. Recheck labs tomorrow: BMP and TSH Connected with patient. Mr. Velásquez states his BP today at home was 249/117 and he feels "terrible." Patient states "my kidneys are hurting." Asked patient to de scribe the pain and he states his "lower back" started hurting today. He states he was urinating regularly after starting new medications prescribed by Dr. Dionna bravo on 04/28, but today he has not urinated as much. Patient hopes to stop Chlort halidone. Provided recommendations from Dr. Blue. Pt verbalizes understanding and agreea ble to plan. Will recheck labs tomorrow at [place], [place]. * Telephone Encounter - Hellen Scott RN - 05/03/2018 4:47 PM CDT Mela Correa [facility] Nurse Rei Butcher, pt is MPE's pt and is requesting [...] to local ER. He states he is o n his way to PCP office and they are aware he is coming. He states if he gets admitted, he will request a transfer to . documented in this encounter Plan of Treatment Not on filedocumented as of this encounter Results * THYROID STIMULATING HORMONE-TSH (05/04/2018) TSH 1.06 [facility] Specimen Blood - Blood Performing Organization Address City/State/Zipcode Phone Number MAIN LAB [address] [place] [address] * BASIC METABOLIC PANEL (05/04/2018) Sodium 130 [facility] Potassium 3.7 [facility] Chloride 100 [facility] CO2 25 [facility] Blood Urea 16 [facility] Nitrogen Creatinine 1.32 [facility] Glucose 139 [facility] Calcium 9.9 [facility] eGFR Non 59 (L) >60 [facility] eGFR [facility] Eritrean Anion Gap 13 [facility] Specimen Blood - Blood Narrative Performed At Performing Organization Address City/State/Zipcode Phone Number MAIN LAB [address] [place] [address] documented in this encounter Visit Diagnoses Diagnosis Resistant hypertension - Primary documented in this encounter
--- OUTSIDE RECORDS SUMMARY | 2018-08-03 10:16 | XMS REPORT | Encounter Summary ---
Author Author [facility] Organization [facility] Address Unknown Phone Unavailable Care Team Providers Care Poultry Hanger Name Role Phone Yana Chadwick MD 21 Shreyas Puentes MD 3 Eden Hennessy MD PCP Reason for Visit * Reason Comments Lab Results Encounter Details Care Team Description Date Type Department Cat Sunshine RN Lab Results 05/05/2018 Documentation The [address] [place] [address] Social History Date Tobacco Use Types Packs/Day [...] Specimen Blood - Blood Performing Organization Address City/[facility] Phone Number MAIN LAB [address] [phone] * BASIC METABOLIC PANEL (05/04/2018) Sodium 130 [facility] Potassium 3.7 [facility] Chloride 100 [facility] CO2 25 [facility] Blood Urea 16 [facility] Nitrogen Creatinine 1.32 [facility] Glucose 139 [facility] Calcium 9.9 [facility] eGFR Non 59 (L) >60 [facility] eGFR K[facility] Burundian Anion Gap 13 [facility]IN [facility] Specimen Blood - Blood Narrative Performed At Performing Organization Address City/[facility] Phone Number [facility] MAIN LAB [address] [place] [address] documented in this encounter Visit Diagnoses Diagnosis Resistant hypertension documented in this encounter
--- OUTSIDE RECORDS SUMMARY | 2018-08-03 10:16 | XMS REPORT | Encounter Summary ---
Author Author [facility] Organization [facility] Address Unknown Phone Unavailable Care Team Providers Care Tin Dipper Name Role Phone Yana Chadwick MD 21 Shreyas Puentes MD 3 Eden Hennessy MD PCP Encounter Details Care Team Description Date Type Department Glenys Kessler MD [address] Ortho/Med Pavilion Lvl [address] [place] [address] [phone] Essential (primary) hypertension 05/13/2018 [facility] [address] [address] Social History Date Tobacco Use Types Packs/Day [...] LAB D(25-OH)Total Specimen Blood Performing Organization Address [facility] Phone Number [facility] [address] [place] [address] * BASIC METABOLIC PANEL (05/13/2018 9:13 AM [...] >60 >60 mL/min [facility] Comment: Montenegrin The eGFR is not validated for use in drug dosing adjustments.Continue to use estimated creatinine clearance per dosing reference text.Please contact the Clinical Pharmacist for questions. eGFR >60 >60 mL/min [facility] MAIN [facility] Montenegrin Comment: The eGFR is not validated for use in drug dosing adjustments.Continue to use estimated creatinine clearance per dosing reference text.Please contact the Clinical Pharmacist for questions. Specimen Blood Performing Organization Address [facility] Phone Number [facility] [address] [place] [address] documented in this encounter Visit Diagnoses Diagnosis Resistant hypertension Hyperparathyroid bone disease (HCC) Primary hyperparathyroidism Essential hypertension Unspecified essential hypertension documented in this encounter
--- OUTSIDE RECORDS SUMMARY | 2018-08-03 10:16 | XMS REPORT | Encounter Summary ---
Author Author [facility] Organization [facility] Address Unknown Phone Unavailable Care Team Providers Care Service Center Coordinator Name Role Phone Yana Chadwick MD 21 Shreyas Puentes MD 3 Eden Hennessy MD PCP Reason for Referral * Consult, Test & Treat (Routine) Referred By Contact Referred To Contact Status Reason Specialty Diagnoses / Procedures Glenys Kessler MD [address] [facility] Ortho/Med Pavilion Lvl [address] [place] [address] [facility] [address] [place] [address] New Request Specialty Services Pulmonology Diagnoses Required Sleep apnea, unspecified type Reason for Visit * Reason Comments Other Encounter Details Care Team Description Date Type Department Glenys Kessler MD [address] [facility] Ortho/Med Pavilion Lvl [address] [place] [address] [phone] Resistant hypertension (Primary Dx); Hyperparathyroid bone disease (HCC); Sleep apnea, unspecified type 05/13/2018 Office Visit The [facility] [address] [phone] Social History Date Tobacco Use Types Packs/Day [...] Signs Reading Time Taken Comments Vital Sign 133/89 05/13/2018 8:35 AM CDT Blood Pressure 79 05/13/2018 8:35 AM CDT Pulse - - Temperature - - Respiratory Rate - - Oxygen Saturation - - Inhaled Oxygen Concentration 129.3 kg (285 lb) 05/13/2018 8:35 AM CDT Weight 170.2 cm (5' 7") 05/13/2018 8:35 AM CDT Height 44.64 05/13/2018 8:35 AM CDT Body Mass Index documented in [...] workup for resistant hypertension. He is a remarkabl y pleasant gentleman who sees my colleague Dr. Vargas in our electrophysiology s ubdivision. The patient has a prior history of [...] syndrome. He denies any symptoms of lower extrem ity edema current palpitatio He also has obstructive sleep apnea currrently untreated. He is reporting episodes of insomnia mixed with increased hypersomnolence and fa tigue. This is likely related to untreated obstructive sleep apnea. He reports an insect infestation in his CPAP machine. We will contact his sleep supplier, and see if he can be re-issued a new CPAP machine. This individual was being evaluated for resistant hypertension by Dr. Blue and on evaluation it seems that he is a he an elevated PTH with a normal correspondi ng calcium level. He denies any significant hypercalcemia. [...] BY MOUTH TWICE DAILY FOR ANXI ETY atorvastatin (LIPITOR) 20 mg tablet TAKE ONE TABLET BY MOUTH ONCE DAILY cloNIDine (CATAPRESS) 0.2 mg tablet Take one tablet by mouth three times santosh ly. diltiazem CD (CARDIZEM CD) 300 mg capsule [...] vitamin D deficiency he does have risk f actors for that. We will check a vitamin D level and treat him appropriately wi th vitamin D as needed. Resistant hypertension patient has resistant hypertension with a 40 pound weight gain we will rule him out for Rufina's disease will do both salivary cortisol levels are 24 urine for urinary Cortisol. Severe sleep apnea is individual has severe sleep apnea which definitely contrib utes to his hypertension not going to refer her to our pulmonary clinic for furt her evaluation. He definitely needs to get a new CPAP. documented in this encounter Plan of Treatment Order Schedule Name Type Priority Associated Diagnoses Expected: 05/13/2018, Expires: 05/14/2019 CREATININE-URINE 24 HR Lab Routine Resistant hypertension Hyperparathyroid bone disease (HCC) Expected: 05/13/2018, Expires: 05/14/2019 SODIUM-URINE 24 HR Lab Routine Resistant hypertension Hyperparathyroid bone disease (HCC) Order Schedule Name Type Priority Associated Diagnoses Ordered: 05/13/2018 AMB REFERRAL TO PULMONARY Outpatient Routine Sleep apnea, unspecified Referral type documented as of this encounter Results * FREE CORTISOL-URINE 24 HR (05/19/2018) Cortisol, Free 6 5 - 64 OTHER OUTSIDE Urine, Total LAB Specimen Urine - Urine Narrative Performed At Performing Organization Address City/[facility]/Zipcode Phone Number OTHER OUTSIDE LAB * CALCIUM-URINE 24HR (05/19/2018) Calcium 24 Hr 53.9 100.0 - 300.0 OTHER OUTSIDE LAB Specimen Urine - Urine Narrative Performed At Performing Organization Address City/[facility]/Zipcode Phone Number OTHER OUTSIDE LAB * CORTISOL,SALIVA (05/18/2018) Cortisol, 0.018 0.010 - 0.090 [facility]IN [facility] Sample 2 Specimen Saliva - Salivette Swab Narrative Performed At Performing Organization Address City/[facility]/Zipcode Phone Number MAIN LAB [address] [place] [address] * CORTISOL,SALIVA (05/17/2018 11:00 PM CDT) Cortisol, 0.054 0.010 - 0.090 [facility] MAIN [facility] Sample 1 Specimen Saliva - Salivette Swab Narrative Performed At Performing Organization Address [facility]/Zipcode Phone Number MAIN LAB [address] [place] [address] * 25-OH VITAMIN D (D2 + D3) (05/13/2018 9:13 AM CDT) Vitamin 19.7 (L) 30 - 80 NG/ML [facility] MAIN LAB D(25-OH)Total Specimen Blood Performing Organization Address City/State/Zipcode Phone Number [facility] [address] [place] [address] * BASIC METABOLIC PANEL (05/13/2018 9:13 AM CDT) Pathologist [facility] Sodium 138 137 - 147 MMOL/L KU [...] >60 >60 mL/min [facility] MAIN [facility] Comment: Taiwanese The eGFR is not validated for use in drug dosing adjustments.Continue to use estimated creatinine clearance per dosing reference text.Please contact the Clinical Pharmacist for questions. eGFR >60 >60 mL/min [facility]IN [facility] Taiwanese Comment: The eGFR is not validated for use in drug dosing adjustments.Continue to use estimated creatinine clearance per dosing reference text.Please contact the Clinical Pharmacist for questions. Specimen Blood Performing Organization Address City/State/Zipcode Phone Number [facility] [address] [place] [address] documented in this encounter Visit Diagnoses Diagnosis Resistant hypertension - Primary Hyperparathyroid bone disease (HCC) Primary hyperparathyroidism Sleep apnea, unspecified type documented in this encounter
--- OUTSIDE RECORDS SUMMARY | 2018-08-03 10:16 | XMS REPORT | Encounter Summary ---
Author Author [facility] Organization [facility] Address Unknown Phone Unavailable Care Team Providers Care Turner Machine Operator Name Role Phone Yana Chadwick MD 21 Shreyas Puentes MD 3 Eden Hennessy MD PCP Reason for Visit * Reason Comments Lab Results Encounter Details Care Team Description Date Type Department Cat Valenzuela RN Lab Results 05/12/2018 Telephone The [address] [address] Social History Date Tobacco Use Types Packs/Day [...] - 05/12/2018 1:25 PM CDT Routed to [facility] for review. documented in this encounter Plan [...] MAIN LAB eGFR 92 [facility] MAIN LAB Paraguayan Anion Gap [facility] MAIN [facility] Specimen Blood - Blood Narrative Performed At MAIN LAB Dr. Blue, repeat labs for review.Adjusted BP meds approximately 10 days ago.Creat bumped previously to 1.32 on 05/04.Wanted recheck in a couple weeks.Patient already went to lab - Cr now 1.10.Thanks, Anamika [facility] Organization Address City/State/Zipcode Phone Number MAIN LAB [address] [place] [address] documented in this encounter Visit Diagnoses Diagnosis Resistant hypertension documented in this encounter
--- OUTSIDE RECORDS SUMMARY | 2018-08-03 10:16 | XMS REPORT | Encounter Summary ---
Author Author [facility] Organization [facility] Address Unknown Phone Unavailable Care Team Providers Care Catholic Priest Name Role Phone Yana Chadwick MD 21 Shreyas Puentes MD 3 Eden Hennessy MD PCP Reason for Referral * Pain Authorization (Routine) Referred By Contact Referred To Contact Status Reason Specialty Diagnoses / [place] [address] [place] [address] Geoff Spivey, DO [address] [facility] [place] [address] Closed Neurology Diagnoses History of lipoma Sarcoma (HCC) Pain of left lower leg P rocedures SPINE EMG PROCEDURE Reason for Visit * Reason Comments Pain Encounter Details Care Team Description Date [place] [address] [place] [address] [phone] History of lipoma (Primary Dx); Sarcoma (HCC); Pain of left lower leg 05/02/2018 Office Visit [facility] [address] [place] [address] Social History Date Tobacco Use Types Packs/Day [...] Signs Reading Time Taken Comments Vital Sign 150/95 05/02/2018 10:37 AM CDT Blood Pressure 73 05/02/2018 10:37 AM CDT Pulse - - Temperature - - Respiratory Rate 97% 05/02/2018 10:37 AM CDT Oxygen Saturation - - Inhaled Oxygen Concentration 133.8 kg (295 lb) 05/02/2018 10:37 AM CDT Weight 170.2 cm (5' 7") 05/02/2018 10:37 AM CDT Height 46.2 05/02/2018 10:37 AM CDT Body Mass Index documented in [...] How to reach me: Please send a Mailcloud message to the Spine Center or leave a voicemail Amanda Plummer at [phone] How to get a medication refill: Please use the Mailcloud Refill request or cont act your pharmacy directly to request medication refills. How to receive your test results: If you have signed up for Mailcloud, you will receive your test results and messages from me this way. Otherwise, you will get a phone call or letter. If you are expecting results and have not heard from my office within 2 weeks of your testing, please send a Mailcloud message or call my office. Scheduling: Our scheduling phone number if you are a Spine Center patient is [phone]. If you are a cancer center patient, please call the cancer center you go to for scheduling. Appointment Reminders on your cell phone: Make sure we have your cell phone n ze, and Text [facility] to [phone]. Support for many chronic illnesses is available through [facility]: [facility] or 311-779-4912. For questions on nights, weekends or holidays, call the hardboard press operator at , and ask for the doctor rehabilitation physician for Physical Medicine and Rehab. documented in this encounter Progress Notes * Lexi Amezcua MD - 05/02/2018 11:00 AM CDT ONCOLOGY REHAB HISTORY AND PHYSICAL Chief Complaint Patient presents with Left Thigh - Pain Subjective HISTORY OF PRESENT ILLNESS: Mr. Velásquez is a pleasant 47 y.o. male with a history of LLE lipoma s/p resection x 4 in [place] with the last in 2015 who is seen on 05/02/2018 at the [facility] for follow up evaluation and treatment [...] Take one tablet by mouth daily. 30 ta blet 3 cloNIDine (CATAPRESS) 0.2 mg tablet Take one tablet by mouth twice daily. 18 0 tablet 3 diltiazem CD (CARDIZEM CD) 300 [...] LLE lipoma s/p re section x4 in [place] with the last in 2015. History and [...] but discussed that we do not do chcf opioid mgmt at the spine center. We [...] Planning to follow up with Dr. Armida sadler. Plan: 1. Medications: Can continue current opioid medications as prescribed by his PCP . 2. Therapy: The patient will continue in his therapy directed HEP. Recently com pleted additional therapy for LLE strengthening. 3. Interventions: none indicated at this time. Currently following with Dr. Rehman un - recent lumbar sympathetic block 04/05/18 4. [...]
--- OUTSIDE RECORDS SUMMARY | 2018-08-03 10:16 | XMS REPORT | Encounter Summary ---
Author Author [facility] Organization [facility] Address Unknown Phone Unavailable Care Team Providers Care Sales And Service Representative Name Role Phone Yana Chadwick MD 21 Shreyas Puentes MD 3 Eden Hennessy MD PCP Reason for Visit * Reason Comments Lab Results Encounter Details Care Team Description Date Type Department Cat Valenzuela RN Lab Results 05/09/2018 Telephone The [address] [place] [address] Social History Date Tobacco Use Types Packs/Day [...] with patient regarding Dr. Blue's recommendations. Pt verbali zes understanding and will have labs rechecked in two weeks. Orders entered and will fax to [facility]. * Telephone Encounter - Cat Valenzuela RN - 05/09/2018 3:20 PM CDT ----- Message from Roger Blue MD sent at 05/09/2018 2:21 PM CDT ----- Creat mildly up. Recheck in 2 weeks ----- Message ----- From: Cat Valenzuela RN Sent: 05/09/2018 1:33 PM To: MD Dr. Su Carr, labs for review. Pt called last week with elevated BP readings. Med ication changes made. Patient sending BP readings in [...] MAIN LAB eGFR 92 [facility] MAIN LAB [place] Islander Anion Gap [facility] MAIN [facility] Specimen Blood - Blood Narrative Performed At MAIN LAB Dr. Blue, repeat labs for review.Adjusted BP meds approximately 10 days ago.Creat bumped previously to 1.32 on 05/04.Wanted recheck in a couple weeks.Patient already went to lab - Cr now 1.10.Anamika Avila Performing Organization Address City/State/Zipcode Phone Number MAIN LAB [address] [place] [address] documented in this encounter Visit Diagnoses Diagnosis MELI (obstructive sleep apnea) - Primary Obstructive sleep apnea (adult) (pediatric) Resistant hypertension documented in this encounter
--- OUTSIDE RECORDS SUMMARY | 2018-08-03 10:17 | XMS REPORT | Encounter Summary ---
Author Author [facility] Organization [facility] Address Unknown Phone Unavailable Care Team Providers Care Senior Rd Engineer Name Role Phone Yana Chadwick MD 21 Shreyas Puentes MD 3 Eden Hennessy MD PCP Reason for Referral * Consult, Test & Treat (Routine) Referred By Contact Referred To Contact Status Reason Specialty Diagnoses / Procedures Roger Blue MD [address] [place] [address] Pending Review Diagnoses Essential hypertension P rocedures REQUEST FOR CARDIOLOGY APPOINTMENT * Consult, Test & Treat (Routine) Referred By Contact Referred To Contact Status Reason Specialty Diagnoses / Procedures Saul Altamirano MD [address] [place] [address] New Request Procedures REQUEST FOR CARDIOLOGY APPOINTMENT Reason for Visit * Reason Comments Cardiac Eval HTN * Consult, Test & Treat (Routine) Referred By Contact Referred To Contact Status Reason Specialty Diagnoses / Procedures Saul Altamirano MD [address] [place] [address] New Request Procedures REQUEST FOR CARDIOLOGY APPOINTMENT Encounter Details Care Team Description Date Type Department Roger Blue MD [address] [place] [address] [phone] Cardiac Eval (HTN) 04/28/2018 Office Visit [facility] [address] [facility] [address] [place] [address] Social History Date Tobacco Use Types Packs/Day [...] Signs Reading Time Taken Comments Vital Sign 160/100 04/28/2018 3:52 PM CDT Blood Pressure 86 04/28/2018 3:52 PM CDT Pulse - - Temperature - - Respiratory Rate - - Oxygen Saturation - - Inhaled Oxygen Concentration 133.8 kg (295 lb) 04/28/2018 3:52 PM CDT Weight 170.2 cm (5' 7") 04/28/2018 3:52 PM CDT Height 46.2 04/28/2018 3:52 PM CDT Body Mass Index documented in [...] to see you today! 1. Please pickle pumper blood pressure cuff from pharmacy and send blood pressure farnaz dings to [facility] every two weeks. Take your blood pressure twice daily. 2. Please have labs drawn in two weeks after medication changes made today. 3. Dr. Blue would like to see you back in the office in 6 months - we will sen d you a card in the mail to schedule that appointment. If you have any questions in the meantime, please call [facility] [phone]. G ood to see you and take care! documented [...] has obstructive sleep apnea currently untreated and sev ere resistant hypertension since he was 20 years old. The patient reports that he has struggled with blood pressure more so over the last couple of years. He is hoping that we can help him. The patient does not report any symptoms that w ould be suggestive of a catecholamine excess or a serotonin excess syndrome. He denies any symptoms of lower extremity edema current palpitations. He has not had any very recent hospitalizations for emergent hypertension. He reports comp liance with medications. He is on disability for a long time for multiple reaso ns. Past medical history: 1. Morbid obesity 2. [...] hypertension at an early age but he d oes not know if it is resistant Vitals: [...] device in situ 01/14/2017 Sinus node dysfunction ([facility]) 11/02/2016 Dr. Valdez S/p PPM implant- Advisa 02/20/16 PSVT (paroxysmal supraventricular tachycardia) ([facility]) 11/02/2016 Resistant hypertension 11/02/2016 MELI (obstructive sleep apnea) 11/02/2016 History of lipoma 09/30/2016 Pain of left thigh 09/30/2016 Pain of left lower leg 09/30/2016 Review of Systems Constitution: Negative. HENT: Negative. Eyes: Negative. Cardiovascular: Positive for chest pain, claudication, dyspnea on exertion, irre gular heartbeat and leg swelling. Respiratory: Negative. Endocrine: [...] hypertension is likely essential hypertension but has mu ltiple aggravating factors including morbid obesity and obstructive sleep apnea for which she does not wear a sleep mask. Also poor compliance with salt restri ction is also a causative agent here. He is currently taking clonidine 0.2 mg t wice a day and metoprolol XL 200 mg twice a day losartan 100 mg daily. His tricia l artery duplex was normal. We are going to do the followin. Check our secondary hypertension labs including aldosterone renin ratio and s rosemarie free metanephrine and TSH and parathyroid hormone levels 2. I am decreasing the dose of metoprolol to 200 once daily 3. Starting chlorthalidone 25 mg daily 4. Starting Aldactone 25 mg daily 5. As in the patient to record his blood pressure twice daily for 2 weeks and se nd us readings 6. Work towards getting a CPAP mask and machine that works for him with his [facility] physician 7. We will work with him closely to get his blood pressure under control over th e next few weeks Current Medications (including today's [...] Schedule Name Type Priority Associated Diagnoses Ordered: 04/28/2018 ECG 12-LEAD ECG Routine Essential hypertension documented as of this encounter Results * METANEPHRINES FRACT FREE PLASMA (04/28/2018 4:53 PM CDT) Normetaphrine, 0.54 REFERENCE LAB Plasma Comment: Reference range: <0.90 Unit: nmol/L [facility], [address] [place] [id number] Metanephrine,Pl <0.20 REFERENCE LAB asma Reference range: <0.50 Unit: nmol/L ADDITIONAL INFORMATION This test was developed and its performance characteristics determined by [facility] in a manner consistent with CLIA requirements. This test has not been cleared or approved by the U.S. Food and Drug Administration. [facility], [address] [place] [id number] Specimen Blood Performing Organization Address [facility] Phone Number REFERENCE LAB REFERENCE LAB See results for address. * CORTISOL,RANDOM (04/28/2018 4:53 PM CDT) Cortisol, 6.3 5.0 - 20.0 MCG/DL MAIN LAB Random Specimen Blood Performing Organization Address [facility] Phone Number MAIN LAB [address] [place] [address] * ALDOSTERONE-RANDOM (04/28/2018 4:53 PM CDT) Aldosterone, 13 3 - 24 ng/dL MAIN LAB Random Specimen Blood Performing Organization Address [facility] Phone Number MAIN LAB [address] [place] [address] * RENIN-RANDOM (04/28/2018 4:53 PM CDT) Renin-Random 10 3 - 45 pg/mL [facility] MAIN [facility] Comment: The renin value is a new "direct" assay corresponding to antigen concentration rather than renin activity. The normal ratio for aldosterone to renin is 0.1-3.7. A ratio of greater than 3.7 is suggestive of aldosteronism. Specimen Blood Performing Organization Address [facility] Phone Number [facility] MAIN [facility] [address] [place] [address] * URIC ACID (04/28/2018 4:53 PM CDT) Uric Acid 6.0 4.0 - 8.0 MG/DL [facility] MAIN [facility] Specimen Blood Performing Organization Address [facility] Phone Number [facility] MAIN [facility] [address] [place] [address] * PARATHYROID HORMONE (04/28/2018 4:53 PM CDT) PTH Hormone 160.2 (H) 10 - 65 PG/ML [facility] MAIN [facility] Specimen Blood Performing Organization Address [facility] Phone Number [facility] MAIN [facility] [address] [place] [address] * THYROID STIMULATING HORMONE-TSH (04/28/2018 4:53 PM CDT) TSH 1.450 0.35 - 5.00 MCU/ML [facility] MAIN LAB Specimen Blood Performing Organization Address [facility] Phone Number [facility] MAIN [facility] [address] [place] [address] * COMPREHENSIVE METABOLIC PANEL (04/28/2018 4:53 PM [...] >60 >60 mL/min [facility] MAIN LAB Comment: Czech The eGFR is not validated for use in drug dosing adjustments.Continue to use estimated creatinine clearance per dosing reference text.Please contact the Clinical Pharmacist for questions. eGFR >60 >60 mL/min [facility] MAIN LAB Czech Comment: The eGFR is not validated for use in drug dosing adjustments.Continue to use estimated creatinine clearance per dosing reference text.Please contact the Clinical Pharmacist for questions. Specimen Blood Performing Organization Address City/[facility]/Zipcode Phone Number MAIN LAB [address] [place] [address] * CBC (04/28/2018 4:53 PM CDT) White [...] MAIN LAB Specimen Blood Performing Organization Address City/[facility]/Zipcode Phone Number MAIN LAB [address] [place] [address] documented in this encounter Visit Diagnoses Diagnosis Essential hypertension - Primary Unspecified essential hypertension documented in this encounter
--- OUTSIDE RECORDS SUMMARY | 2018-08-03 10:17 | XMS REPORT | Encounter Summary ---
Author Author [facility] Organization [facility] Address Unknown Phone Unavailable Care Team Providers Care Chief Design Branch Name Role Phone Yana Cahdwick MD 21 Shreyas Puentes MD 3 Eden Hennessy MD PCP Encounter Details Care Team Description Date Type Department Roger Blue MD [address] [id number] 04/28/2018 Hospital [facility] [address] [phone] Social History Date Tobacco Use Types Packs/Day [...] mg tablet TABLET BY MOUTH ONCE DAILY EPINEPHrine(+) (EPIPEN) 1 Inject 0.3 mg 0 [...] mg tablet tablet by mouth twice daily. 06/06/2018 diltiazem CD (CARDIZEM Take 300 mg [...] FRACT FREE PLASMA (04/28/2018 4:53 PM CDT) [facility] Normetaphrine, 0.54 REFERENCE LAB Plasma Comment: Reference range: <0.90 Unit: nmol/L [facility], [address] [place] [phone] Metanephrine,Pl <0.20 REFERENCE LAB asma Reference range: <0.50 Unit: nmol/L ADDITIONAL INFORMATION This test was developed and its performance characteristics determined by [facility] in a manner consistent with CLIA requirements. This test has not been cleared or approved by the U.S. Food and Drug Administration. [facility], [facility] [place] [address] Specimen Blood Performing Organization Address City/State/Zipcode Phone Number REFERENCE LAB REFERENCE LAB See results for address. * URIC ACID (04/28/2018 4:53 PM CDT) Uric Acid 6.0 4.0 - 8.0 MG/DL [facility] MAIN LAB Specimen Blood Performing Organization Address [facility] Phone Number [facility] MAIN [facility] [address] [place] [address] * THYROID STIMULATING HORMONE-TSH (04/28/2018 4:53 PM CDT) TSH 1.450 0.35 - 5.00 MCU/ML [facility] MAIN LAB Specimen Blood Performing Organization Address [facility] Phone Number [facility] MAIN [facility] [address] [place] [address] * RENIN-RANDOM (04/28/2018 4:53 PM CDT) Renin-Random 10 3 - 45 pg/mL MAIN LAB Comment: The renin value is a new "direct" assay corresponding to antigen concentration rather than renin activity. The normal ratio for aldosterone to renin is 0.1-3.7. A ratio of greater than 3.7 is suggestive of aldosteronism. Specimen Blood Performing Organization Address [facility] Phone Number MAIN LAB [address] [place] [address] * PARATHYROID HORMONE (04/28/2018 4:53 PM CDT) PTH Hormone 160.2 (H) 10 - 65 PG/ML MAIN LAB Specimen Blood Performing Organization Address [facility] Phone Number [facility] MAIN [facility] [address] [place] [address] * CORTISOL,RANDOM (04/28/2018 4:53 PM CDT) Cortisol, 6.3 5.0 - 20.0 MCG/DL [facility] MAIN LAB Random Specimen Blood Performing Organization Address [facility] Phone Number MAIN LAB [address] [place] [address] * COMPREHENSIVE METABOLIC PANEL (04/28/2018 4:53 PM [...] >60 >60 mL/min [facility] MAIN [facility] Comment: German The eGFR is not validated for use in drug dosing adjustments.Continue to use estimated creatinine clearance per dosing reference text.Please contact the Clinical Pharmacist for questions. eGFR >60 >60 mL/min [facility] MAIN LAB German Comment: The eGFR is not validated for use in drug dosing adjustments.Continue to use estimated creatinine clearance per dosing reference text.Please contact the Clinical Pharmacist for questions. Specimen Blood Performing Organization Address City/State/Zipcode Phone Number [facility] [address] [place] [address] * CBC (04/28/2018 4:53 PM CDT) White Blood 8.8 4.5 - 11.0 K/UL MAIN LAB Cells RBC 5.29 4.4 - 5.5 M/UL MAIN LAB Hemoglobin 15.5 13.5 - 16.5 GM/DL MAIN LAB Hematocrit 46.4 40 - 50 % [facility] MAIN LAB MCV 87.8 80 - 100 FL MAIN LAB MCH 29.2 26 - 34 PG MAIN LAB MCHC 33.3 32.0 - 36.0 G/DL MAIN LAB RDW 14.2 11 - 15 % [facility] MAIN LAB Platelet Count 184 150 - 400 K/UL MAIN LAB MPV 11.3 (H) 7 - 11 FL MAIN LAB Specimen Blood Performing Organization Address City/[facility]/Zipcode Phone Number [facility] [address] [place] [address] * ALDOSTERONE-RANDOM (04/28/2018 4:53 PM CDT) Aldosterone, 13 3 - 24 ng/dL MAIN LAB Random Specimen Blood Performing Organization Address City/State/Zipcode Phone Number MAIN LAB [address] [place] [address] documented in this encounter Visit Diagnoses Diagnosis Essential hypertension Unspecified essential hypertension documented in this encounter
--- OUTSIDE RECORDS SUMMARY | 2018-08-03 10:17 | XMS REPORT | Encounter Summary ---
Author Author [facility] Organization [facility] Address Unknown Phone Unavailable Care Team Providers Care School Operations Manager Name Role Phone Yana Chadwick MD 21 Shreyas Puentes MD 3 Eden Hennessy MD PCP Encounter Details Care Team Description Date Type Department Cindy Swan RN 04/25/2018 Telephone [facility] [address] [place] [phone] Social History Date Tobacco Use Types Packs/Day [...] his appt with Vipul Blue at [facility] clin[facility] will continue to monitor readings and [...]
--- OUTSIDE RECORDS SUMMARY | 2018-08-03 10:17 | XMS REPORT | Encounter Summary ---
Author Author [facility] Organization [facility] Address Unknown Phone Unavailable Care Team Providers Care Charter Bus Driver Name Role Phone Yana Chadwick MD 21 Shreyas Puentes MD 3 Eden Hennessy MD PCP Reason for Referral * Consult, Test & Treat (Routine) Referred By Contact Referred To Contact Status Reason Specialty Diagnoses / Procedures Saul Altamirano MD [address] [place] [address] [facility] [address] [place] [address] No Auth Needed Cardiology Diagnoses Essential hypertension Sinus node dysfunction (HCC) NSVT (nonsustained ventricular tachycardia) (HCC) Bruit P rocedures PV RENAL ARTERY DUPLEX SCAN MI DUP-SCAN ARTL ARGENIS ABDL/PEL/SCROT&/RP R ORGN COM * Consult, Test & Treat (Routine) Referred By Contact Referred To Contact Status Reason Specialty Diagnoses / Procedures Saul Altamirano MD [address] [address] [facility] [address] [place] [address] No Auth Needed Cardiology Diagnoses Essential hypertension Sinus node dysfunction (HCC) NSVT (nonsustained ventricular tachycardia) (HCC) Bruit P rocedures PV RENAL ARTERY DUPLEX SCAN MI DUP-SCAN ARTL ARGENIS ABDL/PEL/SCROT&/RP R ORGN COM Reason for Visit * Consult, Test & Treat (Routine) Referred By Contact Referred To Contact Status Reason Specialty Diagnoses / Procedures Saul Altamirano MD [address] [address] [facility] [address] [address] No Auth Needed Cardiology Diagnoses Essential hypertension Sinus node dysfunction (HCC) NSVT (nonsustained ventricular tachycardia) (HCC) Bruit P rocedures PV RENAL ARTERY DUPLEX SCAN MI DUP-SCAN ARTL ARGENIS ABDL/PEL/SCROT&/RP R ORGN COM Encounter Details Care Team Description Date Type Department Saul Altamirano MD [address] [place] [phone] 04/12/2018 [facility] [address] [phone] Social History Date Tobacco Use Types Packs/Day [...] Signs Reading Time Taken Comments Vital Sign 152/89 04/12/2018 2:06 PM SMALL WIND ENERGY INSTALLER Blood Pressure - - Pulse - - Temperature - - Respiratory Rate - - Oxygen Saturation - - Inhaled Oxygen Concentration 133.1 kg (293 lb 6.4 oz) 04/12/2018 2:06 PM SMALL WIND ENERGY INSTALLER Weight 170.2 cm (5' 7") 04/12/2018 2:06 PM SMALL WIND ENERGY INSTALLER Height 45.95 04/12/2018 2:06 PM SMALL WIND ENERGY INSTALLER Body Mass Index documented in this encounter [...] mg tablet BY MOUTH FOUR TIMES DAILY nitroglycerin (NITROSTAT) Place 0.4 mg 0 [...] 3 mg tablet tablet by mouth daily. 06/06/2018 diltiazem CD (CARDIZEM Take 300 mg 0 CD) 300 mg capsule by mouth every morning. 09/03/2017 06/06/2018 losartan(+) (COZAAR) 100 Take 1 tablet 90 tablet 3 mg tablet by mouth daily. 03/10/2018 07/08/2018 methotrexate sodium Take six 72 tablet 0 (RHEUMATREX) 2.5 mg tablets by tablet mouth every 7 days. 09/10/2016 04/28/2018 metoprolol XL (TOPROL XL) TAKE ONE 0 200 mg extended release TABLET BY tablet MOUTH TWICE DAILY 08/25/2017 07/08/2018 pregabalin (LYRICA) 150 Take 1 60 capsule 3 mg capsule capsule by mouth twice daily. documented as of this encounter Plan of Treatment Not on filedocumented as of this encounter Procedures Comments Procedure Name Priority Date/Time Associated Diagnosis PV RENAL ARTERY DUPLEX Routine 04/12/2018 Essential hypertension SCAN 2:06 PM SMALL WIND ENERGY INSTALLER Sinus node dysfunction (HCC) NSVT (nonsustained ventricular tachycardia) (HCC) Bruit documented in this encounter Results * PV RENAL ARTERY DUPLEX SCAN (04/12/2018 2:06 PM SMALL WIND ENERGY INSTALLER) AORTIC PROXIMAL 0.6 m/s OTHER OUTSIDE VELOCITY [...] Charly [facility]pi[facility] OTHER OUTSIDE Ultrasound LAB Machine Specimen Narrative Performed At OTHER OUTSIDE LAB 1. [...]
--- OUTSIDE RECORDS SUMMARY | 2018-08-03 10:17 | XMS REPORT | Encounter Summary ---
Author Author [facility] Address Unknown Phone Unavailable Care Team Providers Care Vacuum Pan Operator Name Role Phone Yana Chadwick MD 21 Shreyas Puentes MD 3 Eden Hennessy MD PCP Reason for Referral * Consult, Test & Treat (Routine) Referred By Contact Referred To Contact Status Reason Specialty Diagnoses / Procedures Saul Altamirano MD [address] [place] [address] Pending Review Procedures REQUEST FOR CARDIOLOGY APPOINTMENT * Consult, Test & Treat (Routine) Referred By Contact Referred To Contact Status Reason Specialty Diagnoses / Procedures Saul Altamirano MD [address] [place] [address] Cv [facility]v [address] [place] [address] No Auth Needed Cardiology Diagnoses Essential hypertension Sinus node dysfunction (HCC) NSVT (nonsustained ventricular tachycardia) (HCC) Bruit P rocedures PV RENAL ARTERY DUPLEX SCAN VT DUP-SCAN ARTL ARGENIS ABDL/PEL/SCROT&/RP R ORGN COM * Consult, Test & Treat (Routine) Referred By Contact Referred To Contact Status Reason Specialty Diagnoses / Procedures Saul Altamirano MD [address] [place] [address] New Request Procedures REQUEST FOR CARDIOLOGY APPOINTMENT * Consult, Test & Treat Referred By Contact Referred To Contact Status Reason Specialty Diagnoses / Procedures Saul Altamirano MD [address] [place] [address] [place] [address] No Auth Needed Cardiology Procedures REQUEST FOR CARDIOLOGY APPOINTMENT Reason for Visit * Reason Comments Cardiac Eval myocarditis, sinis node dysfunction, essential hypertension * Consult, Test & Treat Referred By Contact Referred To Contact Status Reason Specialty Diagnoses / Procedures Saul Altamirano MD [address] [place] [address] [place] [address] No Auth Needed Cardiology Procedures REQUEST FOR CARDIOLOGY APPOINTMENT Encounter Details Care Team Description Date Type Department Saul Altamirano MD [address] [place] [address] [phone] Cardiac Eval (myocarditis, sinis node dysfunction, essential hypertension) 04/07/2018 [place] [address] Social History Date Tobacco Use Types Packs/Day [...] Signs Reading Time Taken Comments Vital Sign 140/102 04/07/2018 11:31 AM EMPLOYMENT INSTRUCTIONAL ASSOCIATE Blood Pressure 73 04/07/2018 11:31 AM EMPLOYMENT INSTRUCTIONAL ASSOCIATE Pulse - - Temperature - - Respiratory Rate - - Oxygen Saturation - - Inhaled Oxygen Concentration 136.1 kg (300 lb) 04/07/2018 11:31 AM EMPLOYMENT INSTRUCTIONAL ASSOCIATE Weight 170.2 cm (5' 7") 04/07/2018 11:31 AM EMPLOYMENT INSTRUCTIONAL ASSOCIATE Height 46.99 04/07/2018 11:31 AM EMPLOYMENT INSTRUCTIONAL ASSOCIATE Body Mass Index documented in this encounter [...] Cindy Swan RN - 04/07/2018 11:00 AM EMPLOYMENT INSTRUCTIONAL ASSOCIATE start clonidine 0.1 mg daily - this prescription will be sent to your pharmacy Check your BP (Blood Pressure) daily and vary the time of day you check it. Try to follow a low salt diet. Exercise helps with your blood pressure. Try to get at least 30 minutes of mode rate intensity exercise at least 4 days a week. Call our office or your PCP if your blood pressure remains at or above 140/90 mm Hg consistently. If you have questions about your blood pressure readings, please contact the off ice. Schedule a Renal Artery Duplex before you leave the office today. Schedule appointment in our Hypertension Clinic as soon as possible resume remote device monitoring follow up with Dr Altamirano in 6 months with device check In order to provide you the best care possible we ask that you follow up as mirlande laurent: For NON-URGENT questions please contact us through your [employer] account. For all medication refills please contact your pharmacy or send a request raegan Keita. For all questions that may need to be addressed urgently please call the nursing triage line at [phone] Wednesday - Wednesday 8-5 only. Please leave a detailed m essage with your name, date of , and reason for your call. To schedule an appointment call [phone]. Please allow 10-15 business days for the results of any testing to be reviewed. Please call our office if you have not heard from a nurse within this time frame . OYMENT INSTRUCTIONAL ASSOCIATE documented in this encounter Progress Notes * Saul Altamirano MD - 04/07/2018 11:00 AM EMPLOYMENT INSTRUCTIONAL ASSOCIATE Date of Service: 04/07/2018 Trent Velásquez Jr. is a 47 y.o. male. HPI I had the pleasure of seeing your patient Trent Velásquez Jr. in the [facility] as a part of the [facility] office today for follow up regarding his Ventricular Tachycardia. He is typically followed and was referred by my colleagues and friends Dr. Jamir drew and Dr. Bourgeois, his primary cardiologists. Mr. Velásquez is an exceptionally pleasant 47 y.o. Male. He does not currently work, as he is on disability. The past medical history and data below has been reviewed and updated by me wi th new events for today's visit. His PMHx briefly includes:NS-VT; Sxic SND-sinus bradycardia; S/P Medtronic M RI Compatible DDDR PPM Implant (02/2016-at OSH by Dr. 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 Puentes at [facility]; Obesity; Tobacco abuse NOTE--pthas stainless steel filter shunts in his eyes and was told by his ey e doctor that he is unable to have an MRI. NOTE--patient's pacemaker implantation preceded by nearly a year has diagnosis o f myocarditis. Notepatient had an episode of "SVT" documented through his device in the r emote past without recurrence He STATES he has been feeling markedly fatigued and lacking energy. He also repo rts having intermittent dizziness upon laying backward. He has not followed up with Dr. Bourgeois regarding his pacemaker. He reports that his blood pressure today is on the lower end of his numbers. He states he has an appointment with a sleep specialist, who is helping him obta in a CPAP. He states he is exercising very little secondary to hand and leg pain. He admits that he is often laying in bed and sedentary. He claims compliance with his medications. Unfortunately, he continues to smoke. He states he is weaning himself off, but s till smoking. He denies any chest discomfort, shortness of breath, palpitations, lightheadedne ss, near syncope or syncope, PND or orthopnea. FHx, SHx and ROS documented and I have reviewed, with some pertinent features to include: He is a history of "heart disease" in his parentsFather at 61, Uncle in his 40s. Other details unknown. He is a Current Smoker. Most pert inent ROS is included/discussed throughout the note, e.g. HPI and A/P. ASSESSMENT AND PLAN: -- Marked Accelerated Hypertension -- Myocarditis by Cardiac PET (01/27/17) -- Tachycardia/SVT-Atrial Tachycardia -- NS-VT -- Sxic SND-Sinus Bradycardia --Medtronic MRI Compatible DDDR PPM Implant (02/2016-at OSH by Dr. Valdez) -- Prior Syncope with documented Bradycardia via prior Medtronic LinQ Implantabl e Monitor (03/2015, which was removed with PPMimplantation) -- Hyperlipidemia -- High Cholesterol -- OSAS -- Migraines -- Tobacco Abuse Mr. Velásquez primary complaint this is fatigue and chronic pain. He apparently spen ds most of his day in bed. He [...] renal artery bruit and therefore I have rec ommended pursuing a renal artery duplex. He does not have room for further titration of his antihypertensives in the curr ent state. Therefore, we will add Clonidine 0.1 mg daily to his medical regimen anticipate we will need to increase it further with persistent accelerated hypertension. I have asked him to keep in phone contact with us. I also asked him to present to the ER if he has blood pressure readings with systolics above 190 and diastol ics above 115 mmHg. Of note if he winds up being admitted to the hospital because of his accelerated hypertension I would also pursue a PET scan to ensure that the myocarditis is n ot again active with high SUV readings I have also asked him to undergo evaluation/consultation in our Hypertension Cli staci. There is a clear concern given the amount of antihypertensive therapy is on, ana pite his claim of absolute compliance. Regarding his Myocarditis--this was a diagnosis by cardiac PET scan. He had sin us node dysfunction as well as some NSVT. It is certainly possible that the PET scan was falsely positive. However, he did have other conduction issues. I do however agree with Dr. Lee continuing his methotrexate without a follow -up PET scan to confirm improvement is not recommended. I am remarkably disappointed that his insurance company is "blocking" what we fe el to be important evaluation in the patient's medical care and management. His PET scan from 01/2017 showed the basal lateral wall of the left ventricle wi th a maximum SUV of 17.95 basal septal wall of the left ventricle she had a maxi mum SUV of 13.57. His pacemaker function is stable/good. We will assume remote monitoring and fol low-up of his pacer going forward. Regarding his atrial arrhythmias, he has had episodes of what anticipate her sin us tachycardia not atrial tachycardia but will continue to monitor accordingly. We also discussed smoking cessation. Have asked him to pick a target date and q uit accordingly and consider participating in smoking cessation programs such as going to [facility] if necessary. I also anticipate that his untreated sleep apnea is contributing to his accelera kam hypertension, etc. He has an appointment with a sleep specialist sometime i n the next few weeks to month to [...] his renal bruits and to rule out tricia l artery stenosis -- We will assume care of his remote monitoring -- I asked him to call our office with any new or recurrent symptoms. Mr. Velásquez was educated regarding plan of care. He was instructed to call our offi ce with any questions or concerns, as well as to notify us of any new or worseni ng symptoms. He verbalized understanding. I appreciate the opportunity to participate in the care of your patient. Please do not hesitate to contact me directly if you have any questions or furth er insights into his care. I have scheduled his follow-up with me in 6 month(s) . DETAILED UPDATED PMHx: -- 03/2015: Cardiac Catheterization by Dr. Calloway [facility] -- 03/2015: Medtronic LinQ Implantable Monitor implantation by Dr. Bourgeois -- Bradycardia detected with symptoms of lightheadedness and syncope/near syncop e through his ILR prompting dual-chamber pacemaker implantation.-- 02/2016: DDDR Medtronic permanent pacemaker implantationsee above 12/2016patient's pacemaker interrogation documents of nonsustained VT. T herefore referred for further evaluation and treatment. Also there are episode s of SVT but reportedly were suggestive of possible atrial tachycardia or atrial flutter with a cycle length of 400 ms prompting EP consultation. Patient erika ins on Cardizem and Toprol-XL. Device interrogation demonstrates: [...] nonsustained VT with a cycle length of 28 0 ms that is regular EGMs clearly document what appears to be brief episode and has a sudden onset. There is VA dissociation present. There is a clear ch jeff in EGM morphology as well. -- 01/14/17: Initial EP Consultation: Pt had at least 2 episodes of NSVT that w ere brief and ASxic with clear VA dissociation [...] With no arrhythmias and no symptom activated event s. -- 01/27/17: Pt underwent Cardiac PET scan -->findings reflective of severe myocarditis -- 02/14/17: Progress Notes (Dr. Altamirano): Pt underwent PET Scanning given his do cumented NSVT, conduction system disease, sinus tachycardia, at with normal echo cardiogram, normal cardiac catheterization, negative stress imaging. The PET Scan results reported: Findings reflective of severe myocarditis. The Results stated: That there was heterogenous increased uptake involving the left ventricular myocardium. The basal lateral wall of the left ventricle showe da maximum SUV of 17.95 (index 111). The basal septal wall of the left ventric le showeda maximum SUV of 13.57 (index 105). There was No metabolically active mediastinal or hilar nodes are identified. No metabolically active pulmonary opacities are seen. The Blood pool mean SUV=1.53, maximum SUV=2.09. His pacing leads were noted. Plan was tocontact the halfway house counselor, Dr. Leander Lopez specializes in roya coidosis, etc., have MrHollis had worked in more urgently for [facility]. --I spoke with Dr. LEE. He will be seeing Mr. Velásquez sometime early next asuncion adame. I also spoke with the patient himself about these results and to be expecti ng a call from Dr. LEE. I also contacted the patient's primary residential monitor Dr. Bourgeois and let them know of the results and the plan accordingly. He was appreciative that Dr. Lee would be seeing the patient. -- 03/08/17: OV (Dr. Altamirano): Initiated Lisinopril 20 mg dailyfor BP control a nd pt was instructed to follow up with Dr. Lee or a Psychological Anthropologist -- 04/28/17: Pulmonary/myocarditis/? sarcoidosis Consultation with Dr. Leander voss lower suspicion for sarcoidosis, however given his high SUV score treatment was recommended. Typically would have utilize prednisone but with hi s glaucoma issues including the needs for stents etc. was felt not to be an idea l option. Therefore METHOTREXATE WAS INITIATED,with folic acid supplement as needed. Plan was if no improvement myocarditis with an SUV less than 6 follow ing 4 months of treatment and we consider additional therapeutic options. Also encouraged CPAP compliance for his sleep apnea and tobacco cessation. -- 06/25/17: OV (Dr. Altamirano): Encouraged pt to treat OSAS, recommended continued follow up with Dr. Lee regarding myocarditis. -- 08/06/17: EP-LAPIDARIST OV (Elizabeth): Pt reported brief, fleeting chest discomfort. travis n appeared to be pleuritic in nature and very atypical for angina. Further car diology workup was not recommended at this time -- 09/03/17: Echocardiogram: Normal LV function by preliminary report. Full rep ort pending. -- 09/03/17: OV (Dr. Altamirano): Stopped Lisinopril and initiated Losartan 100 mg da lata with Triamterene-HCTZ 37.5 / 25 mg daily due to cough on Lisinopril. We also asked him to follow up with his Psychological Anthropologist regarding his Methotrexate. -- 09/16/17: Stopped Dyazide and advised hydration as pt had elevated creatinine, BUN and eGFR Vitals: 04/07/18 1131 BP: (!) 140/102 Pulse: 73 Weight: 136.1 kg (300 lb) Height: 1.702 m (5' 7") Body mass index is 46.99 kg/m. Past Medical History Patient Active Problem List Diagnosis Date Noted Class 3 obesity in adult 08/06/2017 Coxsackie viruses 04/28/2017 Sarcoma ([facility]) 04/28/2017 Tobacco abuse 04/28/2017 Myocarditis ([facility]) 02/26/2017 NSVT (nonsustained ventricular tachycardia) ([facility]) 02/26/2017 Cardiac device in situ 01/14/2017 Sinus node dysfunction ([facility]) 11/02/2016 Dr. Valdez S/p PPM implant- Advisa 02/20/16 PSVT (paroxysmal supraventricular tachycardia) ([facility]) 11/02/2016 Hypertension 11/02/2016 MELI (obstructive sleep apnea) 11/02/2016 History of lipoma 09/30/2016 Pain of left thigh 09/30/2016 Pain of left lower leg 09/30/2016 Review of Systems Constitution: Positive for malaise/fatigue and weight gain. HENT: Negative. Eyes: Negative. Cardiovascular: Positive for chest pain, claudication, irregular heartbeat and l eg swelling. Respiratory: Negative. Endocrine: Negative. Hematologic/Lymphatic: Negative. [...] Effort normal and breath sounds normal. No respira tory distress or accessory muscle use. No obvious tracheal deviation. Clear to auscultation bilaterally. Cardiovascular: No evidence of increased jugular venous pressure, carotids are 2+/4+ equal bilaterally, with bilateral renal bruits. Regular rhythm, S1, S2. I do not appreciate any significant murmur today. No heaves, thrills or rubs. Musc/Skeletal-Extremities: Without significant peripheral edema. With what appe ars to be full ROM. Device Site: Is [...] performed with reprogramming which I have extensively reviewed . Changes, if done, as discussed below and is detailed in other dictation/note. 35% atrial paced; less than 0.1% ventricular paced; for "fast AMV events and . No "VT" events. No A. fib events. Heart rate histogram with good distr ibution. Last episode of "SVT was on March 12. Less than 15 seconds. He had an episode on January 10 in November 30 in November 26 the longest and 59 seconds of the bunch. The episode from March 12 anticipate is all sinus tachycardia although I cannot definitively rule out an atrial tachycardia cycle length is 37 0 ms. It is 1: 1 conduction. We do not have an onset or termination to definit ively rule out an atrial tachycardia. But I suspect it is all sinus tach. We d o not have EGMs of his other events since we do not follow him on a regular basi s. Problems Addressed Today Encounter Diagnoses Name Primary? [...] acting as scribe for Saul Altamirano M.D. OYMENT INSTRUCTIONAL ASSOCIATE documented in this encounter Plan of Treatment Order Schedule Name Type Priority Associated Diagnoses Ordered: 04/07/2018 ECG 12-LEAD ECG Routine Essential hypertension Sinus node dysfunction (HCC) NSVT (nonsustained ventricular tachycardia) (HCC) Expected: 04/07/2019, Expires: 04/07/2019 DEVICE EVALUATION - PPM Device Check Routine Essential hypertension Sinus node dysfunction (HCC) NSVT (nonsustained ventricular tachycardia) (HCC) documented as of this encounter Procedures Comments Procedure Name Priority Date/Time Associated Diagnosis ECG-SCAN 04/07/2018 12:00 AM EMPLOYMENT INSTRUCTIONAL ASSOCIATE documented in this encounter Results * PV RENAL ARTERY DUPLEX SCAN (04/12/2018 2:06 PM EMPLOYMENT INSTRUCTIONAL ASSOCIATE) AORTIC PROXIMAL 0.6 m/s OTHER OUTSIDE VELOCITY [...] OUTSIDE LAB * ECG-SCAN (04/07/2018 12:00 AM EMPLOYMENT INSTRUCTIONAL ASSOCIATE) Narrative Performed At Ordered by an unspecified provider. documented in this encounter Visit Diagnoses Diagnosis Essential hypertension - Primary Unspecified essential hypertension Sinus node dysfunction (HCC) Sinoatrial node dysfunction NSVT (nonsustained ventricular tachycardia) (HCC) Paroxysmal ventricular tachycardia Bruit Other symptoms involving cardiovascular system documented in this encounter
--- OUTSIDE RECORDS SUMMARY | 2018-08-03 10:17 | XMS REPORT | Encounter Summary ---
Author Author [facility] Organization [facility] Address Unknown Phone Unavailable Care Team Providers Care Nut Grader Name Role Phone aYna Chadwick MD 21 Shreyas Puentes MD 3 Eden Hennessy MD PCP Encounter Details Care Team Description Date Type Department Sawyer Dean Sinus node dysfunction (HCC) (Primary Dx); Cardiac device in situ 04/07/2018 Orders Only The [facility] [id number] [place] [address] Social History Date Tobacco Use Types Packs/Day [...] Order Schedule Name Type Priority Associated Diagnoses Every 12 Weeks Auto for 99 Occurrences starting 04/07/2018 until 04/07/2024 DEVICE EVALUATION - Device Check Routine Sinus node dysfunction REMOTE PPM (HCC) Cardiac device in situ documented as of this encounter Visit Diagnoses Diagnosis Sinus node dysfunction (HCC) - Primary Sinoatrial node dysfunction Cardiac device in situ Unspecified cardiac device in situ documented in this encounter
--- OUTSIDE RECORDS SUMMARY | 2018-08-03 10:17 | XMS REPORT | Encounter Summary ---
Author Author [facility] Organization [facility] Address Unknown Phone Unavailable Care Team Providers Care Consulting Services Associate Name Role Phone Yana Chadwick MD 21 Shreyas Puentes MD 3 Eden Hennessy MD PCP Reason for Visit * Reason Comments Pain Encounter Details Care Team Description Date Type [place] [address] [place], [place] [id number] Chronic pain syndrome (Primary Dx); History of lipoma; Sarcoma (HCC) 04/11/2018 Office Visit [facility] [address] [place], [place] [id number] Social History Date Tobacco Use Types Packs/Day [...] Reading Time Taken Comments Vital Sign 152/89 04/11/2018 10:31 AM ALLERGIST/MD Blood Pressure 81 04/11/2018 10:31 AM ALLERGIST/MD Pulse - - Temperature - - Respiratory Rate 97% 04/11/2018 10:31 AM ALLERGIST/MD Oxygen Saturation - - Inhaled Oxygen Concentration 136.1 kg (300 lb) 04/11/2018 10:31 AM ALLERGIST/MD Weight 170.2 cm (5' 7") 04/11/2018 10:31 AM ALLERGIST/MD Height 46.99 04/11/2018 10:31 AM ALLERGIST/MD Body Mass Index documented in this encounter [...] Lexi Amezcua MD - 04/11/2018 10:30 AM ALLERGIST/MD ONCOLOGY REHAB HISTORY AND PHYSICAL Chief Complaint Patient presents with Left Thigh - Pain Subjective HISTORY OF PRESENT ILLNESS: Mr. Velásquez is a pleasant 47 y.o. male with a history of LLE lipoma s/p resection x 4 in [place] with the last in 2015 who is seen on 04/11/2018 at the [facility] for follow up evaluation and treatment of LLE pain following L LE sympathetic nerve block with Dr. Soto (04/05/18) [...] ambulation. Has had additional difficulty with his ambul ation secondary to cardiac comorbidities, but had a pacemaker put in approximate ly 1-1/2 years ago with some improvements with his exercise tolerance. At this time he states that his pain is a significant limiting factor for any type of ac tivity. He has increased pain with any movement, and some improvement of his pa in with rest and the use of medications. He is previously been on hydrocodone, oxycodone, Xanax, gabapentin. He is continuing his hydrocodone 7.5/325 which he is getting from his primary care physician. He is also prescribed lyrica 75mg twice daily. He reports numbness and tingling in the bottoms of both of his fee t, but denies any significant change in this. He has some change in sensation b etween his left lower extremity in his right to light touch. He also states he always feels cold. No significant low back pain, radicular pattern, or change i n bowel and bladder function. Past Medical History: [...] by mouth daily. (Patient taking differently: Take 0.1 mg by mouth [...] mouth twice daily. 60 c apsule 3 topiramate (TOPAMAX) 100 mg tablet TAKE [...] LLE lipoma s/p re section x4 in [place] with the last in 2015. History and [...] but discussed that we do not do local intermodal truck driver opioid mgmt at the spine center. We have tried medication management. His prior prescription for Cymbalta was no t covered by insurance, and so we will try amitriptyline 10 mg at night. This m ay also be helpful with the patient's insomnia. We will increase the Lyrica fro m 75 mg twice a day to 150 [...] ask if it would be reasonable/he should ben edule an appointment. 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
--- OUTSIDE RECORDS SUMMARY | 2018-08-03 10:17 | XMS REPORT | Encounter Summary ---
Author Author [facility] Organization [facility] Address Unknown Phone Unavailable Care Team Providers Care Strategic Partnership Specialist Name Role Phone Yana Chadwick MD 21 Shreyas Puentes MD 3 Eden Hennessy MD PCP Reason for Referral * Consult, Test & Treat (Routine) Referred By Contact Referred To Contact Status Reason Specialty Diagnoses / Procedures Saul Altamirano MD 4000 [facility] [place] [address] Rb - Sleep Dis[facility] [id number] [place] [address] New Request Specialty Services Sleep Center Diagnoses Required Essential hypertension Scheduling Instructions Neck circumference may be a required measurement for sleep study prior authorization and/or claim payment. Has neck circumference been obtained? no Reason for Visit * Reason Comments Hypertension Encounter Details Care Team Description Date Type Department Alejandro West RN Hypertension 04/19/2018 Telephone The [facility] [address] [place] [address] Social History Date Tobacco Use Types Packs/Day [...] advised clonidine 0.1 mg be increased from o nce per day to twice per day. * Telephone Encounter - Alejandro West RN - 04/19/2018 2:37 PM CDT Per Cindy Swan via [employer]... viola white... velásquez needs to take clonidine 0.1 twice per [...] faxed the the Central Referral fax # [phone]. I gave him the number for the [facility] ([phone]); I told hi m to call to schedule an appointment if [...] with Dr. Blue scheduled for 05/11. Per denisha Sotelo to move him up to 04/28 @ 1530 @ . Patient agreeable. I rescheduled this appointment. He states he does not have a BP cuff at home. I advised him to get one. He states he was instructed to return to his PCP office for a repeat BP later th is AM. He states if it is still elevated, they plan on admitting him to [facility] in [place]. He states, if admitted, he wants to be admitted to . I told him that the medical staff at [facility] can seek transfer to if they would like. He states he will call us later this AM to inform us of his repeat BP & whether or not he is being admitted to the hospital. I told him that if he is admitted to the hospital to instruct them to send us th e records from his admission or contact our office on discharge so that we can r equest records. Will route to [facility] for review with MPE - increase clonidine? * Telephone Encounter - Alejandro West RN - 04/19/2018 10:13 AM CDT ----- Message from Cherry Fabian LPN sent at 04/19/2018 9:08 AM CDT ----- Regarding: MPE- elevated b/p VM from patient on triage line. His b/p is elevated and PCP would like to know what MPE would like to do about i t. documented in this encounter Plan of Treatment Order Schedule Name Type Priority Associated Diagnoses Ordered: 04/19/2018 AMB REFERRAL FOR SLEEP Outpatient Routine Essential hypertension STUDIES Referral documented as of this encounter Visit Diagnoses Diagnosis Essential hypertension - Primary Unspecified essential hypertension documented in this encounter
--- OUTSIDE RECORDS SUMMARY | 2018-08-03 10:18 | XMS REPORT | Encounter Summary ---
Author Author [facility] Organization [facility] Address Unknown Phone Unavailable Care Team Providers Care Production Corrugator Name Role Phone Yana Chadwick MD 21 Shreyas Puentes MD 3 Eden Hennessy MD PCP Encounter Details Care Team Description Date Type Department Saul Altamirano MD [address] [phone] 04/07/2018 Hospital [facility] [address] [id number] Social History Date Tobacco Use Types Packs/Day [...] PPM Routine 04/07/2018 Other myocarditis, 9:25 AM PSYCHOPAEDIC NURSE unspecified chronicity (HCC) Sinus node dysfunction (HCC) Essential hypertension documented in this encounter Results * DEVICE EVALUATION - PPM (04/07/2018 9:25 AM PSYCHOPAEDIC NURSE) Generator [employer] OTHER OUTSIDE Offset Lithographic Press Operator LAB Generator Model [id number] OTHER OUTSIDE # LAB Generator [id number] OTHER OUTSIDE Serial # LAB Generator 02/20/16 OTHER OUTSIDE Implnat Date LAB Generator Yes OTHER OUTSIDE Investigational LAB Device Mode aair/dddr OTHER OUTSIDE LAB Mode Switch On OTHER OUTSIDE Status LAB Lower Rate 60 OTHER OUTSIDE Limit LAB Mode Switch 171 OTHER OUTSIDE (bpm) LAB Atrial Lead [employer] OTHER OUTSIDE Offset Lithographic Press Operator LAB Atrial Lead 407,652 OTHER OUTSIDE Model # LAB Atrial Lead [id number] OTHER OUTSIDE Serial # LAB Atrial Lead 02/20/16 OTHER OUTSIDE Implant Date LAB Atrial Lead Yes OTHER OUTSIDE Investigational LAB RV Lead [employer] OTHER OUTSIDE Offset Lithographic Press Operator LAB RV Lead Model # 5076-58 OTHER OUTSIDE LAB RV Lead Serial [id number] OTHER OUTSIDE # LAB RV Lead Implant [...] By LAB Device [facility] OTHER OUTSIDE [place] LAB Transmitter Compatible Known Diagnosed No OTHER [...] Monitoring? LAB -VS% 65.4 OTHER OUTSIDE LAB -EXECUTIVE SEARCH CONSULTANT% <1 OTHER OUTSIDE LAB -VS% 34.5 OTHER OUTSIDE LAB AP-EXECUTIVE SEARCH CONSULTANT% <1 OTHER OUTSIDE LAB # Mode S. [...] LAB Remote Check? No OTHER OUTSIDE LAB Specimen Narrative Performed At OTHER OUTSIDE LAB [04/07/2018 [...] to 1.5V. Pt no longer follows with rubber block layer in [place], [place]. Sarah Henry flagged to enroll in [facility]. Reviewed with MPE in clinic and routed check for cosign. Performing Organization Address City/State/Zipcode Phone Number OTHER OUTSIDE LAB documented in this encounter Visit Diagnoses Diagnosis Other myocarditis, unspecified chronicity (HCC) Sinus node dysfunction (HCC) Sinoatrial node dysfunction Essential hypertension Unspecified essential hypertension documented in this encounter
--- OUTSIDE RECORDS SUMMARY | 2018-08-03 10:18 | XMS REPORT | Encounter Summary ---
Author Author [facility] Organization [facility] Address Unknown Phone Unavailable Care Team Providers Care Rn Medical Inpatient Services Name Role Phone Yana Chadwick MD 21 Shreyas Puentes MD 3 Eden Hennessy MD PCP Encounter Details Care Team Description Date Type Department Chapin Soto MD 4000 [place] [address] 04/05/2018 [facility] [address] [place] [id number] Social History Date Tobacco Use Types Packs/Day [...] 300 mg capsule by mouth every morning. 10/01/2017 04/07/2018 folic acid (FOLVITE) 1 mg Take 1 mg 130 tablet 3 tablet daily, except for the day Methotrexate is taken, hold 12 hours and increase to 5 mg once per week 09/03/2017 06/06/2018 losartan(+) (COZAAR) 100 Take 1 [...] Routine 04/05/2018 Pain INJ RAD 10:50 AM SLIP COVER CUTTER documented in this encounter Results * FLUORO GUIDANCE FOR SPINE INJ RAD (04/05/2018 10:50 AM SLIP COVER CUTTER) Specimen Narrative Performed At This order has been auto finalized and does not contain a result. CYRUS MCWILLIAMS Performing Organization Address City/State/Zipcode Phone Number CYRUS MCWILLIAMS documented in this encounter Visit Diagnoses Diagnosis Pain Generalized pain documented in this encounter
--- OUTSIDE RECORDS SUMMARY | 2018-08-03 10:18 | XMS REPORT | Encounter Summary ---
Author Author [facility] Organization [facility] Address Unknown Phone Unavailable Care Team Providers Care Lacquer Shader Name Role Phone Yana Chadwick MD 21 Shreyas Puentes MD 3 Eden Hennessy MD PCP Reason for Visit * Reason Comments Worsening Symptoms Encounter Details Care Team Description Date Type Department Leander Tovar MD 1999 [facility] Ortho/Med Pavilion Lvl [address] [place] [phone] Worsening Symptoms 03/18/2018 Telephone [facility] [address] [place] [address] Social History Date Tobacco Use [...] Leander Tovar MD - 03/18/2018 4:50 PM MIXER BLENDER I contact the patient to notify him that despite appeal, we are not going to be able to get cardiac PET/CT approved through his insurance. He reports that there has really been no change in his cardiac symptoms over the past 6 months on methotrexate. He continues to have frequent heart palpitation s. He does not have any significant presyncope, but he does still feel fatigued . Normally, following 6 months on methotrexate, most patients would experience nabil e degree of improvement. We discussed that there is the possibility [facility] a false positive. Since we do not necessarily have an objective way to assess response to treatmen t, I would be in favor of stopping methotrexate at this time. If he has worseni ng symptoms 2-3 months after discontinuing methotrexate, then this may be an ind ication that it was doing something. I will also forward this to Dr. Vargas to see if he has any other thoughts. How ever, without any clear evidence of improvement, and knowing the high false posi tive rate of cardiac PET/CT scans, I do not think continued immunosuppressive me dication is the best course of action without a way to monitor for response. He also reports that blood pressure continues to be uncontrolled with diastolic blood pressure readings as high as 117. He is also having morning headaches. T hese could be symptoms of untreated obstructive sleep apnea. He reports that he has not used a CPAP machine in the past year. His CPAP had been infected with bugs. He tried to have the machine replaced by his DME. They had replaced it O n the CPAP a few months earlier, this recorded it as a fix equivalent to a new m achine. Consequently, they would not issue a new CPAP machine, which is why he has been nonadherent to therapy. He is no longer seeing the original prescriber of the CPAP machine, who is Dr. Mary guzman close to his home. He would like to see a sleep specialist at . We will place a referral to 1 of our sleep colleagues to see what they can do to help f acilitate getting him back on CPAP therapy. I will defer to Dr. Vargas to see if he has any other thoughts, but this time, I recommended he go ahead and discontinue methotrexate. He was appreciative of t he call. R BLENDER documented in this encounter Plan of Treatment Not on filedocumented as of this encounter Visit Diagnoses Not on filedocumented in this encounter
--- OUTSIDE RECORDS SUMMARY | 2018-08-03 10:18 | XMS REPORT | Encounter Summary ---
Author Author [facility] Organization [facility] Address Unknown Phone Unavailable Care Team Providers Care Counter Pocket Trimmer Name Role Phone Yana Chadwick MD 21 Shreyas Puentes MD 3 Eden Hennessy MD PCP Reason for Referral * Radiology Services (Routine) Referred By Contact Referred To Contact Status Reason Specialty Diagnoses / [place] [address] [place] [address] New Request Radiology Diagnoses History of lipoma Sarcoma (HCC) Complex regional pain syndrome type 2 of left lower extremity P rocedures NM BONE SPECT * Radiology Services (Routine) Referred By Contact Referred To Contact Status Reason Specialty Diagnoses / [place] [address] [place] [address] New Request Radiology Diagnoses History of lipoma Sarcoma (HCC) Complex regional pain syndrome type 2 of left lower extremity P rocedures NM BONE SPECT Reason for Visit * Radiology Services (Routine) Referred By Contact Referred To Contact Status Reason Specialty Diagnoses / [place] [address] [place] [address] Radiology 2000 Count Includes [facility] Level [address] [place] [address] No Auth Needed Radiology Diagnoses History of lipoma Sarcoma (HCC) Complex regional pain syndrome type 2 of left lower extremity P rocedures NM BONE SCAN WHOLEBODY NM BONE SCAN THREE PHASE Encounter Details Care Team Description Date Type [place] [address] [place] [address] [phone] 03/09/[address] [facility] [address] [place] [address] Social History Date Tobacco Use Types Packs/Day [...] Routine 03/09/2018 History of lipoma 2:52 PM WESTERN PHILOSOPHY PROFESSOR Sarcoma (HCC) Complex regional pain syndrome type 2 of left lower extremity NM BONE SPECT Routine 03/09/2018 History of lipoma 2:52 PM WESTERN PHILOSOPHY PROFESSOR Sarcoma (HCC) Complex regional pain syndrome type 2 of left lower extremity documented in this encounter Results * NM BONE SCAN WHOLEBODY (03/09/2018 2:52 PM WESTERN PHILOSOPHY PROFESSOR) Specimen Impressions Performed At 1. No scintigraphic evidence [...] Degenerative changes are seen within the shoulders, hips, ankles, and feet. No significant asymmetric [...] Interface, Radiant Results - 03/09/2018 3:56 PM WESTERN PHILOSOPHY PROFESSOR BONE SCINTIGRAPHY (THREE-PHASE) Clinical indication: 47-year-old male, [...] Degenerative changes are seen within the shoulders, hips, ankles, and feet. No significant asymmetric [...] Number [facility] RAD RESULTS * NM BONE SPECT (03/09/2018 2:52 PM WESTERN PHILOSOPHY PROFESSOR) Specimen Impressions Performed At 1. No scintigraphic evidence [...] Degenerative changes are seen within the shoulders, hips, ankles, and feet. No significant asymmetric [...] Interface, Radiant Results - 03/09/2018 3:56 PM WESTERN PHILOSOPHY PROFESSOR BONE SCINTIGRAPHY (THREE-PHASE) Clinical indication: 47-year-old male, [...] Degenerative changes are seen within the shoulders, hips, ankles, and feet. No significant asymmetric [...]
--- OUTSIDE RECORDS SUMMARY | 2018-08-03 10:18 | XMS REPORT | Encounter Summary ---
Author Author [facility] Organization [facility] Address Unknown Phone Unavailable Care Team Providers Care Blower Blast Furnace Name Role Phone Yana Chadwick MD 21 Shreyas Puentes MD 3 Eden Hennessy MD PCP Reason for Referral * Consult, Test & Treat (Routine) Referred By Contact Referred To Contact Status Reason Specialty Diagnoses / Procedures Leander Tovar MD 1999 [facility] Ortho/Med Pavilion Lvl [address] [place] [address] [facility] [address] [place] [address] New Request Specialty Services Pulmonology Diagnoses Required CPAP (continuous positive airway pressure) dependence MELI (obstructive sleep apnea) Scheduling Instructions Please schedule with sleep team next available Reason for Visit * Reason Comments General Question Encounter Details Care Team Description Date Type Department Leander Tovar MD 1999 [facility] Ortho/Med Pavilion Lvl [address] [place] [address] General Question 04/05/2018 Telephone [facility] [address] [place] [address] Social History Date Tobacco Use [...] Beto Reynaga RN - 04/05/2018 2:51 PM ASSOCIATE PROFESSOR OF GEOGRAPHY Pt lvm requesting a call back. Called and spoke to pt. He states he thought that the MTX was not making any dif ference, but since stopping medication he feels his symptoms are definitely wors e. States he is having more chest pain, increased blood pressure which is induci ng headaches. Pt has not updated Dr. Vargas's office yet. Informed pt that Dr. Lorena de santiago has reached out to Dr. Vargas, but has not heard back yet. Highly recomme nd pt calling Dr. Vargas's office. Pt also state that he has spoke to his PCP's office and she thinks she can get him set up for the PET scan if they get him ad mitted to the hospital. Explained to pt that the scan that is needed is very spe cific and is the only facility around that does the cardiac Pet. Explained th at we have called numerous facilities in the past with no luck. Pt also mentione d that Dr. Tovar was going to get him in to see a sleep doctor for CPAP, but h as not heard anything yet. Informed pt that RN will follow up with this. RN will also notify Dr. Tovar of his worsening symptoms and let pt know if he has any new orders or recommendations. Either way pt needs to f/u with Dr. Vargas. Pt v erbalized understanding and appreciative of the return call. CIATE PROFESSOR OF GEOGRAPHY documented in this encounter Plan of Treatment Order Schedule Name Type Priority Associated Diagnoses Ordered: 04/05/2018 AMB REFERRAL TO PULMONARY Outpatient Routine CPAP (continuous positive Referral airway pressure) dependence MELI (obstructive sleep apnea) documented as of this encounter Visit Diagnoses Diagnosis CPAP (continuous positive airway pressure) dependence - Primary Dependence on other enabling machine MELI (obstructive sleep apnea) Obstructive sleep apnea (adult) (pediatric) documented in this encounter
--- OUTSIDE RECORDS SUMMARY | 2018-08-03 10:18 | XMS REPORT | Encounter Summary ---
Author Author [facility] Organization [facility] Address Unknown Phone Unavailable Care Team Providers Care Strapper Name Role Phone Yana Chadwick MD 21 Shreyas Puentes MD 3 Eden Hennessy MD PCP Reason for Visit * Reason Comments Pain Encounter Details Care Team Description Date Type Department Chapin Soto MD 4000 [facility] [place] [place], [place] [id number] Complex regional pain syndrome type 1 of left lower extremity (Primary Dx) 04/05/2018 Procedure visit The [facility] [address] [place] [address] Social History Date Tobacco Use Types Packs/Day [...] Signs Reading Time Taken Comments Vital Sign 160/95 04/05/2018 11:09 AM OFFICE MESSENGER Blood Pressure 88 04/05/2018 11:09 AM OFFICE MESSENGER Pulse 36.7 C (98.1 F) 04/05/2018 10:57 AM OFFICE MESSENGER Temperature 16 04/05/2018 10:06 AM OFFICE MESSENGER Respiratory Rate 99% 04/05/2018 11:09 AM OFFICE MESSENGER Oxygen Saturation - - Inhaled Oxygen Concentration 127 kg (280 lb) 04/05/2018 10:06 AM OFFICE MESSENGER Weight 170.2 cm (5' 7") 04/05/2018 10:06 AM OFFICE MESSENGER Height 43.85 04/05/2018 10:06 AM OFFICE MESSENGER Body Mass Index documented in this encounter [...] encounter Patient Instructions * Patient Instructions* Mora Amezcua, MILDRED - 04/05/2018 10:00 AM OFFICE MESSENGER Procedure Completed Today: Other LEFT LUMBAR SYMPATHETIC NERVE BLOCK Important information following your procedure today: You may drive today 1. Pain relief may not be immediate. It is possible you may even experience an i ncrease in pain during the first 24-48 hours followed by a gradual decrease of y our pain. 2. Though the procedure is generally safe and complications are rare, we do ask that you be aware of any of the following: ? Any swelling, persistent redness, new bleeding, or drainage from the site of t he injection. ? You should not experience a [...] p.m., on weekends or holidays please call [phone] and ask to have the resident physician ultrasonic solderer for the physician p aged or go to your local emergency room. 3. You may experience soreness at the injection site. Ice can be applied at 20 m inute intervals. Avoid application of direct heat, hot showers or hot tubs today . 4. Avoid strenuous activity today. You may resume your regular activities and ex ercise tomorrow. 5. Patients with diabetes may see an elevation in blood sugars for 7-10 days aft er the injection. It is important to pay close attention to your diet, check you r blood sugars daily and report extreme elevations to the physician that treats your diabetes. 6. Patients taking a daily blood thinner can resume their regular dose this even ing. 7. It is important that you take [...] medications were used: Bupivicaine and Contrast Dye CE MESSENGER documented in this encounter Progress Notes * Chapin Soto MD - 04/05/2018 10:00 AM OFFICE MESSENGER SPINE CENTER INTERVENTIONAL PAIN PROCEDURE HISTORY AND PHYSICAL Chief Complaint Patient presents with Left Leg - Pain HISTORY OF PRESENT ILLNESS: Mr. Velásquez presents for repeat lumbar sympathetic blo ck, the last injection helped 50% for 2 [...] lower extremity PLAN: Left lumbar sympathetic block CE MESSENGER * Brooklynn Heaton RN - 04/05/2018 10:00 AM OFFICE MESSENGER Pain Procedure Plan Of Care Risk of injury related to procedure Patient identification, allergies verified, fall precautions implemented Risk of injury and impaired skin integrity Positioning devices applied as appropriate for procedure, patient transported [facility] staff assistance Management of Pain Pain assessment completed on arrival, PAR scoring following procedure and at dis charge, sedation administered as ordered, patient positioned for comfort Risk of anxiety related to procedure and disease process Patient education on procedure and expectations, provide coping support to patie nt, provide relaxation techniques Outcomes: The patient is free of injury during and following their procedure. Skin is intact and free of bruising. The patients pain is managed during their stay. Alleviation of patient anxiety exhibited. CE MESSENGER documented in this encounter Procedure Notes * Chapin Soto MD - 04/05/2018 10:00 AM OFFICE MESSENGER Associated Order(s): Nerve Block Post-Procedure Diagnose(s): Complex [...] given by: patient Alternatives discussed: alternative treatment [place] Protocol: Relevant documents: relevant documents present and verified Test results: test results available and properly labeled Imaging studies: imaging studies available Required items: required blood products, implants, devices, and special equipmen t available Site marked: the operative site was marked Time out: Immediately prior to procedure a "time out" was called to verify the c orrect patient, procedure, equipment, user support analyst supervisor and site/side marked as requ ired Procedures Details: Prep: 2% chlorhexidine Patient position: prone Guidance: fluoroscopy Medications administered: 8 mL bupivacaine PF 0.25 % Outcome: Pain improved Estimated blood loss: none or minimal Specimens: none Patient tolerated the procedure well with no immediate complications. Pressure w as applied, and hemostasis was accomplished. CE MESSENGER documented in this encounter Plan of Treatment Not on filedocumented as of this encounter Procedures Comments Procedure Name Priority Date/Time Associated Diagnosis TX INJECTION ANES Routine 04/05/2018 Complex regional pain LMBR/THRC PARAVERTBRL 10:00 AM OFFICE MESSENGER syndrome type 1 of left SYMPATHETIC lower extremity documented in this encounter Results * Nerve Block (04/05/2018 10:00 AM OFFICE MESSENGER) Narrative Performed At Chapin Soto MD 04/05/20184:30 PM OTHER OUTSIDE LAB Nerve Block Nerve: lumbar sympathetic Laterality: left Consent: Consent obtained: verbal and written Consent given by: patient Alternatives discussed: alternative treatment [place] Protocol: Relevant documents: relevant documents present and verified Test results: test results available and properly labeled Imaging studies: imaging studies available Required items: required blood products, implants, devices, and special equipment available Site marked: the operative site was marked Time out: Immediately prior to procedure a "time out" was called to verify the correct patient, procedure, equipment, user support analyst supervisor and site/side marked as required Procedures Details: [...] Medication Order MAR Action 04/05/2018 10:49 AM OFFICE MESSENGER 10 mL bupivacaine PF (MARCAINE) 0.25 % Given injection 10 mL 10 mL, Block, ONCE, 1 dose, 04/05/18 at 1100 04/05/2018 4:30 PM OFFICE MESSENGER 8 mL bupivacaine PF (MARCAINE) 0.25 % Given injection 8 mL 8 mL, Injection, ONCE PRN, 1 dose, Starting 04/05/18 at 1630, Until 04/05/18 at 1630 04/05/2018 10:37 AM OFFICE MESSENGER 2.5 mL iopamidol IT 200 (ISOVUE-M 200) Given injection 2.5 mL 2.5 mL, Epidural, ONCE, 1 dose, 04/05/18 at 1045, NOTE: This is a HIGH ALERT Medication., documented in this encounter
--- OUTSIDE RECORDS SUMMARY | 2018-08-03 10:18 | XMS REPORT | Encounter Summary ---
Author Author [facility] Organization [facility] Address Unknown Phone Unavailable Care Team Providers Care Personnel Technician Name Role Phone Yana Chadwick MD 21 Shreyas Puentes MD 3 Eden Hennessy MD PCP Encounter Details Care Team Description Date Type Department Shama Gallardo RN High risk medication use; Sarcoidosis 03/11/2018 Orders Only The [address] [address] Social History Date Tobacco Use Types [...] LAB eGFR Non 90 OTHER OUTSIDE LAB Niuean eGFR 105 OTHER OUTSIDE [place]an LAB Specimen Blood - Blood Narrative Performed At Performing Organization Address City/State/Zipcode Phone Number OTHER OUTSIDE LAB documented in this encounter Visit Diagnoses Diagnosis High risk medication use Encounter for long-term (current) use of other medications Sarcoidosis documented in this encounter
--- OUTSIDE RECORDS SUMMARY | 2018-08-03 10:19 | XMS REPORT | Encounter Summary ---
Author Author [facility] Organization [facility] Address Unknown Phone Unavailable Care Team Providers Care Black Oxide Operator Name Role Phone Yana Chadwick MD 21 Shreyas Puentes MD 3 Eden Hennessy MD PCP Reason for Visit * Reason Comments Medication Refill Encounter Details Care Team Description Date Type Department Leander Tovar MD [facility] [address] [place] [phone] 03/06/2018 Refill The [facility] [address] [place] [address] Social History Date Tobacco Use [...]
--- OUTSIDE RECORDS SUMMARY | 2018-08-03 10:19 | XMS REPORT | Encounter Summary ---
Author Author [facility] Organization [facility] Address Unknown Phone Unavailable Care Team Providers Care Office Technology Instructor Name Role Phone Yana Chadwick MD 21 Shreyas Puentes MD 3 Eden Hennessy MD PCP Reason for Visit * Radiology Services (Routine) Referred By Contact Referred To Contact Status Reason Specialty Diagnoses / [place] [address] [employer] [address] [place] [address] [place] [address] [address] 2 [place] [address] No Auth Needed Radiology Diagnoses History of lipoma Sarcoma (HCC) Complex regional pain syndrome type 2 of left lower extremity P rocedures NM BONE SCAN WHOLEBODY NM BONE SCAN THREE PHASE Encounter Details Care Team Description Date Type [place] [address] [address] [place] [address] [phone] 03/09/2018 Hospital [facility] [address] [place], [place] [phone] Social History Date Tobacco Use Types Packs/Day [...] Routine 03/09/2018 History of lipoma 2:52 PM DOLL MAKER Sarcoma (HCC) Complex regional pain syndrome type 2 of left lower extremity NM BONE SCAN WHOLEBODY Routine 03/09/2018 History of lipoma 2:52 PM DOLL MAKER Sarcoma (HCC) Complex regional pain syndrome type 2 of left lower extremity documented in this encounter Results * NM BONE SCAN WHOLEBODY (03/09/2018 2:52 PM DOLL MAKER) Specimen Impressions Performed At 1. No scintigraphic [...] Interface, Radiant Results - 03/09/2018 3:56 PM DOLL MAKER BONE SCINTIGRAPHY (THREE-PHASE) Clinical indication: 47-year-old male, [...] Medication Order MAR Action 03/09/2018 10:50 AM DOLL MAKER 26.5 millicuries RP DX Tc-99m medronate (MDP) injection Given 25 millicurie 25 millicurie, Intravenous, ONCE, 1 dose, Wed03/09/18 at 1145 documented in this encounter
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
--- OUTSIDE RECORDS SUMMARY | 2018-08-03 10:19 | XMS REPORT | Encounter Summary ---
Author Author [facility] Organization [facility] Address Unknown Phone Unavailable Care Team Providers Care Medical Doctor Md Name Role Phone Yana Chadwick MD 21 Shreyas Puentes MD 3 Eden Hennessy MD PCP Reason for Visit * Reason Comments General Question Denial of Pet scan Encounter Details Care Team Description Date Type Department Leander Tovar MD [address] [facility] Ortho/Med Pavilion Lvl [address] [place] [address] General Question (Denial of Pet scan) 02/15/2018 Telephone The [facility] [address] [place] [address] Social History Date Tobacco Use [...] encounter Miscellaneous Notes * Telephone Encounter - Mariam Nye RN - 02/15/2018 5:03 PM SOLIDWORKS MECHANICAL DESIGNER Pt left voice message stating he has received a letter from his insurance statin g he was denied for his PET. Call returned to pt to discuss and left voicemail ask pt to call if he has had a change in insurance and fax that new insurance to number provided otherwise call tomorrow to follow up. Informing that message will be sent to our precert depa rtment. From: Mariam Nye Sent: Thursday, February 15, 2018 5:07 PM To: Loly Iqbal <[email or web address]>; Lupe Ferguson <[email or web address]> Subject: PET scan on Trent Velásquez Hi Team, I received a call from Mr. Velásquez today stating he has received a doris er from his insurance stating his PET scan was denied. Can you all help me with this? Thank you Mariam Nye [phone] From: Loly Iqbal Sent: Friday, February 16, 2018 8:46 AM To: Mariam Nye <[email or web address]> Subject: RE: PET scan on Trent Velásquez PET scans are a non-covered service w/ [place] [employer] or [employer]. They will never be approved w/o an exception which requires it to be denied first and an appeal sta rted. From: Mariam Nye Sent: Friday, February 16, 2018 12:11 PM To: Loly Iqbal <[email or web address]> Cc: Lupe Ferguson <[email or web address]> Subject: RE: PET scan on Trent Velásquez Thank you for the information. Do you know when we got the denial or if anyone f rom the ILD team was notified it was denied? I ask b/c we need to start to wor k on it? He drives a distance to get here for his appts and we may need to farhana edule him since it is next week. Can you provide me with the information of the denial? Thank you Mariam Parris Patient returned voicemail stating that he has not had a change insurance and he states the letter states it wasn't life threatening and there isnt enough infor saran showing why he needs it. Call returned to pt to discuss and left voicemail stating the above information regarding precert. Pt verbalizes understanding. Requested pt return call if he h as not heard regarding the PET scan as we may need to cancel his appt and resche dule after getting approval. Pt verbalizes understanding. Pt appreciative and griffith d no further questions/concerns. From: Loly Iqbal Sent: Friday, February 16, 2018 2:51 PM To: Mariam Nye <[email or web address]> Cc: Katie Cornelius <[email or web address]> Subject: RE: PET scan on Trent Becerra, I included Katie in the email. I was out of the office and . It looks li ke she got the appeal started. Katie, Can you update Mariam and DENIS on the status of Trent Gonzalez PET. Thank you, Loly Iqbal| PreCert Specialist | [facility] | | mailto:[email or web address] [address] [place], [place] [address] From: Mariam Nye Sent: Sunday, February 18, 2018 11:20 AM To: DENIS Nurse <[email or web address]> Cc: Katie Cornelius <[email or web address]> Subject: RE: PET scan on Trent Velásquez Hi Katie, Can you provide an update on this for me please? Does Dr. Tovar need to do any thing regarding this? Thank you Mariam Nye From: Katie Cornelius Sent: Sunday, February 18, 2018 11:29 AM To: Mariam Nye <[email or web address]>; ILD Nurse <[email or web address]> Cc: Clare Mccray <[email or web address]> Subject: RE: PET scan on Trent Velásquez I called [phone] gab spoke with Devorah ref [id number] this is s till in the appeal status . No auth yet. From: Mariam Nye Sent: Wednesday, February 21, 2018 9:09 AM To: Katie Cornelius <[email or web address]>; ILD Nurse <[email or web address]> Cc: Clare Mccray <[email or web address]> Subject: RE: PET scan on Trent Wilson, Just checking in to see if we know yet on this pts PET. He is coming in on Weds and if he cant we may need to cancel and rearrange everything b/c he drives a di stance! Thank you Mariam Nye From: Katie Cornelius Sent: Wednesday, February 21, 2018 4:09 PM To: Mariam Nye <[email or web address]>; Clare Mccray <[email or web address]>; DENIS Nurse <[email or web address]> Subject: RE: PET scan on Trent Velásquez OK ladies I called [phone] again spoke with Devorah she stated that what has happened is that this is not a covered benefit (which we knew) . The appeal dr sent it to an [facility] . to look at. I explained again that the pt is driving along way for a test on his heart, she put me on hold then actually talked to the [place] se doing the appeal and explained everything to her and nurse is going to call t he outside [facility] and call me back hopefully by 5:00. I am doing my best to get them to give me that auth. . Thank you Katie Cornelius From: Katie Cornelius Sent: Wednesday, February 21, 2018 4:31 PM To: Mariam Nye <[email or web address]>; Clare Mccray <[email or web address]>; DENIS Nurse <[email or web address]> Subject: RE: PET scan on Trnet Velásquez Per Jy[place] at [place] this could take up to [phone] but could be sooner imelda marina we are further along with the process. It has been sent to an outside firm to get the appeal done. Per there medical csr Pt left message wanting to know if he still should come to the appointment or no t. Discussed with Dr. Tovar and would like to have PET with appt. Call returned to pt and discussed we would cancel his appt and PET for Weds and reschedule with approved auth. Pt verbalizes understanding. Pt appreciative and had no further questions/concerns. DWORKS MECHANICAL DESIGNER documented in this encounter Plan of Treatment Not on filedocumented as of this encounter Visit Diagnoses Not on filedocumented in this encounter"
--- OUTSIDE RECORDS SUMMARY | 2018-08-03 10:19 | XMS REPORT | Encounter Summary ---
Author Author [facility] Organization [facility] Address Unknown Phone Unavailable Care Team Providers Care Box Inspector Name Role Phone Yana Chadwick MD 21 Shreyas Puentes MD 3 Eden Hennessy MD PCP Encounter Details Care Team Description Date Type Department Cindy Swan RN 02/03/2018 Telephone The [facility] [address] [place] [phone] Social History Date Tobacco Use Types Packs/Day [...] Cindy Swan RN - 02/03/2018 9:38 AM DESTINATION SPECIALIST received call from MIKI yesterday, unsure who called. appears it was CVM, sent flag to our schedulers to c/b INATION SPECIALIST * Telephone Encounter - Cindy Swan RN - 02/03/2018 9:37 AM DESTINATION SPECIALIST ----- Message from Cherry Fabian LPN sent at 02/03/2018 9:04 AM DESTINATION SPECIALIST ----- Regarding: MPE- call VM from patient on triage line. He would like a call back. INATION SPECIALIST documented in this encounter Plan of Treatment Not on filedocumented as of this encounter Visit Diagnoses Not on filedocumented in this encounter
--- OUTSIDE RECORDS SUMMARY | 2018-08-03 10:19 | XMS REPORT | Encounter Summary ---
Author Author [facility] Organization [facility] Address Unknown Phone Unavailable Care Team Providers Care Volleyball Coach Name Role Phone Yana Chadwick MD 21 Shreyas Puentes MD 3 Eden Hennessy MD PCP Reason for Visit * Reason Comments Medication Refill Encounter Details Care Team Description Date Type Department Leander Tovar MD [address] [facility] Orth[facility]/Med Pavilion Lvl [address] [place] [phone] 03/02/2018 Refill The [facility] [address] [place] [address] Social History Date Tobacco Use [...] Telephone Encounter - Beto Reynaga RN - 03/10/2018 11:26 AM TODDLER GUIDE Received lab results today - ok to refill MTX per protocol. LER GUIDE * Telephone Encounter - Mariam Nye RN - 03/10/2018 9:41 AM TODDLER GUIDE 03/07 Pt left message stating he received letter from [employer] upholding the decision to deny the PET scan b/c testing would not change his current treatment, reques ting return call. 03/10 Call received from pt stating he wanted to know if we received the denial of his PET scan. Discussed with pt we had and notified Dr. Tovar. Plan maybe to do e cho instead and will need to get him rescheduled but will f/u with Dr. Tovar a nd then return call. Pt verbalizes understanding. Pt verbalizes understanding. D iscussed with pt if he has had labs done as was notified last week. Pt reports h e did last week at [facility] in [place]. Discussed we would call and r equest those and send refill if stable. Pt verbalizes understanding. Pt apprecia tive and had no further questions/concerns. LER GUIDE * Telephone Encounter - Beto Reynaga RN - 03/02/2018 2:36 PM TODDLER GUIDE Pt lvm requesting refill on MTX. Also mentioned that he faxed in his portion of the paperwork needed to appeal for PET. Called and spoke to pt. Informed him that RN will notify precert that he faxed i n paperwork. Pt states he faxed it in about a week ago. Also, discussed MTX refi ll. He is due for labs, states he will try to go today to have these drawn befor e the facility closes. Once received will send in refills. Sent email to precert notifying them of the paperwork that was faxed in on behal f of the pt. LER GUIDE documented in this encounter Plan of Treatment Not on filedocumented as of this encounter Visit Diagnoses Not on filedocumented in this encounter
--- OUTSIDE RECORDS SUMMARY | 2018-08-03 10:19 | XMS REPORT | Encounter Summary ---
Author Author [facility] Organization [facility] Address Unknown Phone Unavailable Care Team Providers Care Drafting Clerk Name Role Phone Yana Chadwick MD 21 Shreyas Puentes MD 3 Eden Hennessy MD PCP Reason for Visit * Reason Comments Medication Refill Encounter Details Care Team Description Date Type Department Leander Tovar MD 1999 [facility] Ortho/Med Pavilion Lvl [address] [place] [phone] 02/04/2018 Refill The [facility] [address] [place] [address] Social History Date Tobacco Use [...] Miscellaneous Notes * Telephone Encounter - Liane West, RN - 02/04/2018 10:24 AM SECOND STEWARD Received refill request for methotrexate from pharmacy. Pt had recent office vis it with Dr. Tovar on 10/26/17 and has noted f/u appt on 02/23/18. Per documentat ion pt to continue methotrexate 15 mg weekly, recent lab testing noted. Okay to refill per protocol. Liane West, RN ND STEWARD documented in this encounter Plan of Treatment Not on filedocumented as of this encounter Visit Diagnoses Not on filedocumented in this encounter
--- OUTSIDE RECORDS SUMMARY | 2018-08-03 10:19 | XMS REPORT | Encounter Summary ---
Author Author [facility] Organization [facility] Address Unknown Phone Unavailable Care Team Providers Care Fe[employer] Reducer Machine Name Role Phone Yana Chadwick MD 21 Shreyas Puentes MD 3 Eden Hennessy MD PCP Reason for Referral * Pain Authorization (Routine) Referred By Contact Referred To Contact Status Reason Specialty Diagnoses / Procedures Elizabeth Pollack APRN 4000 Sherley Cruz MD [facility] [place] [address] [facility] [address] [place] [address] Closed Anesthesia Pain Diagnoses Complex regional pain syndrome type 1 of left lower extremity Neuropathic pain P rocedures [facility] Reason for Visit * Reason Comments Other 8 wk fuv Pain Pain Encounter Details Care Team Description Date Type Department Chapin Soto MD [address] Sherley Cruz [facility] [place] [address] [phone] Complex regional pain syndrome type 1 of left lower extremity (Primary Dx); Neuropathic pain 03/08/2018 Office Visit [facility] [address] [place] [address] Social History Date Tobacco Use Types Packs/Day [...] Pressure - - Pulse - - Temperature 22 03/08/2018 2:43 PM [employer]CR[employer]E [employer] 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 Respiratory Rate - - Oxygen Saturation - - Inhaled Oxygen Concentration 123.8 kg (273 lb) 03/08/2018 2:43 PM [employer]CRETE [employer]ER OPERATOR Weight 170.2 cm (5' 7") 03/08/2018 2:43 PM [employer]CR[employer]E [employer]ER OPERATOR Height 42.76 03/08/2018 2:43 PM [employer]CR[employer]E [employer]ER OPERATOR Body Mass Index documented in this encounter [...] Chapin Soto MD - 03/08/2018 3:30 PM [employer]CR[employer]E [employer] OPERATOR [facility] CL[facility]IC NOTE SUBJECTIVE: Patient presents [...] by rest, prescribed medications Patient currently taking [place] 2 tabs, about 5-6 tabs per day, last dose taken t his AM, he states he has been taking more than prescribed due to the severity of the pain Denies constipation, itching, or somnolence Currently taking Gabapentin 300mg BID and Topamax 100mg daily - patient states p reviously tried amitriptyline without relief and insurance not willing to cover Cymbalta. +allodynia in LLE +muscle cramping Denies strength loss Patient reports prior extensive PT sessions with minimal relief noted. 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 Inject 0.3 mg (1 Pen) into thigh if needed for anaphy lactic reaction. May repeat in 5-15 minutes if needed., Disp: , Rfl: folic acid (FOLVITE) 1 mg tablet, Take 1 mg daily, except for the day Metho trexate is taken, hold 12 hours and increase to 5 mg once per week, Disp: 130 ta blet, Rfl: 3 HYDROcodone/acetaminophen (NORCO) 7.5/325 mg tablet, TAKE 1 TABLET BY MOUTH FOUR TIMES DAILY, Disp: , Rfl: 0 losartan(+) (COZAAR) 100 mg tablet, Take 1 tablet by mouth daily., Disp: 90 tablet, Rfl: 3 methotrexate sodium (RHEUMATREX) 2.5 mg tablet, Take six tablets by mouth e very 7 days., Disp: 24 tablet, Rfl: 0 metoprolol XL (TOPROL XL) 200 mg extended release tablet, TAKE ONE TABLET B Y MOUTH TWICE DAILY, Disp: , Rfl: 0 [...] Take 1 capsule by mouth twice daily., D isp: 60 capsule, Rfl: 3 topiramate (TOPAMAX) 100 [...] +2 pitting edema noted in LLE, no ap parent temperate or color change change. IMPRESSION: 1. Complex regional pain syndrome type 1 of left lower extremity 2. Neuropathic pain PLAN: 1. Will schedule repeat of lumbar sympathetic block to target left lower extremi ty pain. 2. Discussed pharmacological management by PCP, encouraged continuance of conser vative therapy of NSAIDs and physical therapy. 3. May consider increase of Gabapentin if neuropathic pain persists after inject ion. 4. Plan for follow-up 2 months after procedure. ATTENDING PHYSICIAN ADDENDUM: I personally interviewed and/or examined the patient. I have reviewed the histor y and ROS outlined by the PARISA Elizabeth Pollack APRN The patient presents with (HPI) left leg CRPS On examination there is allodynia and swelling in the left leg My impression is CRPS My plan is schedule a left lumbar sympathetic block [employer] OPERATOR documented in this encounter Plan of Treatment Order Schedule Name Type Priority Associated Diagnoses Expected: 03/08/2018, Expires: 06/06/2018 [facility] Procedures Routine Complex regional pain syndrome type 1 of left lower extremity Neuropathic pain documented as of this encounter Visit Diagnoses Diagnosis Complex regional pain syndrome type 1 of left lower extremity - Primary Neuropathic pain Neuralgia, neuritis, and radiculitis, unspecified documented in this encounter
[2018-08-03] MEDS ORDERED: morphine PF (DURAMORPH) 10 MG/10 ML AMP ONE (11:00)
[2018-08-03] MEDS ORDERED: BUPIVACAINE 0.25% 30 ML (SENSORCAINE) VIAL ONE (11:00)
[2018-08-03] MEDS ORDERED: morphine INJ 10 MG/ML 1ML (SYR OR VIAL) ONE (11:43)
--- OUTSIDE RECORDS SUMMARY | 2018-08-03 11:56 | XMS REPORT | Continuity of Care Document ---
Author Organization Unknown Address Unknown Allergies Active Description Code Type Severity Reaction Onset Reported/Identified Relationship to Patient Clinical Status Yes ASPIRIN UNKNOWN GI PROBLEMS - NAUSEA Yes PENICILLINS UNKNOWN DERMATOLOGICAL - BALA Yes WASP VENOM UNKNOWN UNKNOWN Yes XALATAN UNKNOWN UNKNOWN Yes aspirin [id number] Drug Allergy Unknown N/A 07/19/2014 Yes Penicillins [id number] Drug Allergy Unknown N/A 07/19/2014 Yes aspirin [id number] Drug Allergy Unknown N/A 07/19/2014 Yes Penicillins [id number] Drug Allergy Unknown N/A 07/19/2014 Yes aspirin [id number] Drug Allergy Moderate STOMACH ACHE 07/26/2018 Yes Penicillins [id number] Drug Allergy Moderate N/V 07/26/2018 Yes adhesive tape [id number] Drug Allergy Unknown N/A 07/26/2018 Yes latanoprost [id number] Drug Allergy Unknown N/A 07/26/2018 Yes lisinopril [id number] Drug Allergy Unknown N/A 07/26/2018 Medications Medication Packaging Start Date Stop Date Route Dosage Sig NITROSTAT TAB 0.4 MG (NITROQUICK) MG 05/06/2017 05/06/2017 [id number] Problems Date Dx Coded Attending Type Code Diagnosis Diagnosed By 12/20/2012 Dilcia BURNETT, C Barry Desai 729.5 PAIN IN LIMB 07/24/2014 GELLENCARYN PEREZ DO A Ot 272.4 07/24/2014 GELLENDER CARYN RICHTER A Ot 401.9 07/24/2014 GELCARYN YOUNG DO Ot 785.0 08/04/[address] COMMISSIONER Ot 272.4 08/04/[address] COMMISSIONER Ot 278.01 08/04/[address] COMMISSIONER Ot 401.9 08/04/2014 NWAGWU, ISID[address] O ST[address] COMMISSIONER Ot 424.0 08/04/2014 NWAGWU, ISIDORE O ST[address] COMMISSIONER Ot 785.0 08/18/2014 FELIBERTO MARTINEZ, [place] L Ot 401.9 08/18/2014 FELIBERTO MARTINEZ, [place] L Ot 682.6 08/18/2014 FELIBERTO MARTINEZ, [place] L Ot 729.5 08/18/2014 FELIBERTO MARTINEZ, [place] L Ot 998.13 08/18/2014 FELIBERTO MARTINEZ, [place] L Ot V58.69 08/24/2014 GELLENDER DO, CARYN A Ot 272.4 08/24/2014 GELLENDER DO, CARYN A Ot 401.9 08/24/2014 GELLENDER DO, CARYN A Ot 785.0 08/24/2014 NWAGWU, ISID[address] O [address] COMMISSIONER Ot 272.4 08/24/2014 NWAGWU, ISIDORE O [address] COMMISSIONER Ot 278.01 08/24/2014 NWAGWU, ISID[address] O [address] COMMISSIONER Ot 401.9 08/24/2014 NWAGWU, ISID[address] O [address] COMMISSIONER Ot 424.0 08/24/2014 NWAGWU, ISIDORE O [address] COMMISSIONER Ot 785.0 08/24/[address] COMMISSIONER Ot 338.18 08/24/[address] COMMISSIONER Ot 729.5 08/31/[address] COMMISSIONER Ot 305.90 08/31/[address] COMMISSIONER Ot 338.18 08/31/[address] COMMISSIONER Ot 729.5 08/31/[address] COMMISSIONER Ot V65.2 10/11/2014 GELLENDER DO, CARYN A Ot 272.4 10/11/2014 GELLENDER DO, CARYN A Ot 401.9 10/11/2014 GELLENDER DO, CARYN A Ot 785.0 10/11/2014 NWAGWU, ISID[address] O [address] COMMISSIONER Ot 272.4 10/11/2014 NWAGWU, ISIDORE O [address] COMMISSIONER Ot 278.01 10/11/2014 NWAGWU, ISID[address] O [address] COMMISSIONER Ot 401.9 10/11/2014 NWAGWU, ISIDORE O [address] COMMISSIONER Ot 424.0 10/11/2014 NWAGWU, ISIDORE O [address] COMMISSIONER Ot 785.0 10/22/2014 [place] GENIA RICHTER Ot 782.2 10/22/2014 MONTANEZ GENIA Wei Ot V45.89 11/08/2014 Ot G47.33 12/09/2014 Ot [...] OTHER CHEST PAIN 03/12/2015 SAJI BURNETT FACC, RANCHO FACP CCDS Ot E66.01 MORBID (SEVERE) OBESITY [...] FACC, ALI FACP CCDS Ot Z79.899 OTHER [facility] (CURRENT) DRUG THERAPY 03/12/2015 SAJI BURNETT FACC, ALI FACP CCDS Ot Z87.891 PERSONAL HISTORY OF NICOTINE DEPENDENCE 03/13/2015 Ot E78.5 03/13/2015 Ot I10 03/13/2015 Ot I51.7 03/13/2015 Ot R00.0 03/13/2015 Ot R00.2 05/07/2015 GENIA MONTANEZ DO Ot R22.42 05/17/2015 Ot E78.5 05/17/2015 Ot I10 05/17/2015 Ot I51.7 05/17/2015 Ot R00.0 05/17/2015 Ot R00.2 05/17/2015 GENIA MONTANEZ DO Ot R22.42 05/17/2015 FRANCISCO TRINIDAD MD Ot S43.432A SUPERIOR GLENOID LABRUM LESION OF LEFT S 05/17/2015 FRANCISCO TRINIDAD MD Ot Z01.12 ENCOUNTER FOR HEARING CONSERVATION AND T 05/17/2015 FRANCISCO TRINIDAD MD Ot Z11.2 ENCOUNTER FOR SCREENING FOR OTHER BACTER 05/20/2015 FRANCISCO TRINIDAD MD Ot S43.432A 05/20/2015 FRANCISCO TRINIDAD MD Ot Z01.12 05/20/2015 FRANCISCO TRINIDAD MD Ot Z11.2 05/22/2015 FRANCISCO TRINIDAD MD Ot E78.5 HYPERLIPIDEMIA, UNSPECIFIED 05/22/2015 FRANCISCO TRINIDAD MD Ot F32.9 MAJOR DEPRESSIVE DISORDER, SINGLE EPISOD 05/22/2015 FRANCISCO TRINIDAD MD Ot I10 ESSENTIAL (PRIMARY) HYPERTENSION 05/22/2015 VIVI BURNETT, FRANCISCO Byrd Ot I25.10 ATHSCL HEART DISEASE OF [place] CORONARY 05/22/2015 VIVI BURNETT, FRANCISCO Byrd Ot M75.102 UNSP ROTATR-CUFF TEAR/RUPTR OF LEFT SHOU 05/22/2015 FRANCISCO TRINIDAD MD Ot S43.432A SUPERIOR GLENOID LABRUM LESION OF LEFT S 05/23/2015 FRANCISCO TRINIDAD MD Ot E78.5 05/23/2015 FRANCISCO TRINIDAD MD Ot F32.9 05/23/2015 VIVI BURNETT, FRANCISCO Byrd Ot I10 05/23/2015 VIVI BURNETT, FRANCISCO Byrd Ot I25.10 05/23/2015 FRANCISCO TRINIDAD MD Ot M75.102 05/23/2015 FRANCISCO TRINIDAD MD Ot S43.432A 05/23/2015 VIVI BURNETT, FRANCISCO Byrd Ot E78.5 05/23/2015 VIVI BURNETT, FRANCISCO Byrd Ot F32.9 05/23/2015 VIVI BURNETT, FRANCISCO Byrd Ot I10 05/23/2015 VIVI BURNETT, FRANCISCO Byrd Ot I25.10 05/23/2015 VIVI BURNETT, FRANCISCO Byrd Ot M75.102 05/23/2015 FRANCISCO TRINIDAD MD Ot S43.432A 09/26/2015 Ot E78.5 HYPERLIPIDEMIA, UNSPECIFIED 09/26/2015 Ot I10 ESSENTIAL (PRIMARY) HYPERTENSION 09/26/2015 Ot I51.7 CARDIOMEGALY 09/26/2015 Ot [...] MD Ot I25.10 ATHSCL HEART DISEASE OF [place] CORONARY 10/02/2015 FRANCISCO TRINIDAD MD Ot S43.431A SUPERIOR GLENOID LABRUM LESION OF RIGHT 10/02/2015 FRANCISCO TRINIDAD MD Ot Z79.899 OTHER [facility] (CURRENT) DRUG THERAPY 10/02/2015 FRANCISCO TRINIDAD MD Ot Z87.891 PERSONAL HISTORY OF NICOTINE DEPENDENCE 10/03/2015 FRANCISCO TRINIDAD MD, Ot E78.5 HYPERLIPIDEMIA, UNSPECIFIED 10/03/2015 FRANCISCO TRINIDAD MD, Ot F32.9 MAJOR DEPRESSIVE DISORDER, SINGLE EPISOD 10/03/2015 FRANCISCO TRINIDAD MD, Ot I10 ESSENTIAL (PRIMARY) HYPERTENSION 10/03/2015 FRANCISCO TRINIDAD MD, Ot I25.10 ATHSCL HEART DISEASE OF [place] CORONARY 10/03/2015 FRANCISCO TRINIDAD MD, Ot S43.431A SUPERIOR GLENOID LABRUM LESION OF RIGHT 10/03/2015 FRANCISCO TRINIDAD MD, Ot Z79.899 OTHER [facility] (CURRENT) DRUG THERAPY 10/03/2015 FRANCISCO TRINIDAD MD, Ot Z87.891 PERSONAL HISTORY OF NICOTINE DEPENDENCE 02/21/2016 Laurence PANG MD, Ot E78.5 HYPERLIPIDEMIA, UNSPECIFIED 02/21/2016 Laurence PANG MD Ot F17.210 NICOTINE DEPENDENCE, CIGARETTES, UNCOMPL 02/21/2016 Laurence PANG MD Ot I10 ESSENTIAL (PRIMARY) HYPERTENSION 02/21/2016 BIRD BURNETT, Laurence ARIZA Ot I48.91 UNSPECIFIED ATRIAL FIBRILLATION 02/21/2016 Laurence PANG MD, Ot I49.5 SICK SINUS SYNDROME 02/21/2016 Laurence PANG MD, Ot Z79.899 OTHER [facility] (CURRENT) DRUG THERAPY 02/24/2016 Ot E78.5 HYPERLIPIDEMIA, UNSPECIFIED 02/24/2016 Ot I10 ESSENTIAL (PRIMARY) HYPERTENSION 02/24/2016 Ot I51.7 CARDIOMEGALY 02/24/2016 Ot R00.0 TACHYCARDIA, UNSPECIFIED 02/24/2016 Ot R00.2 PALPITATIONS 02/24/2016 GENIA MONTANEZ DO Ot R22.42 LOCALIZED SWELLING, MASS AND LUMP, LEFT 03/18/2016 FRANCISCO TRINIDAD MD Ot M19.011 PRIMARY OSTEOARTHRITIS, RIGHT SHOULDER 03/18/2016 [...] E78.5 HYPERLIPIDEMIA, UNSPECIFIED 03/25/2016 Ot I10 ESSENTIAL (PRIMARY) HYPERTENSION 03/25/2016 Ot I51.7 CARDIOMEGALY 03/25/2016 Ot [...] IMPINGEMENT SYNDROME OF RIGHT SHOULDER 05/01/2016 SAJI BRADLEYC, ALI FACP CCDS Ot G47.33 OBSTRUCTIVE SLEEP APNEA (ADULT) (PEDIATR 05/01/2016 SAJI BURNETT FACC, ALI FACP CCDS Ot I10 ESSENTIAL (PRIMARY) HYPERTENSION 05/01/2016 SAJI BRADLEYC, ALI FACP CCDS Ot I47.1 SUPRAVENTRICULAR TACHYCARDIA 05/01/2016 SAJI BRADLEYC, ALI FACP CCDS Ot I49.5 SICK SINUS SYNDROME 05/01/2016 SAJI BRADLEYC, ALI FACP CCDS Ot R00.2 PALPITATIONS 05/01/2016 SAJI BURNETT FACC, ALI FACP CCDS Ot Z72.0 TOBACCO USE 05/01/2016 SAJI BURNETT FACC, ALI FACP CCDS Ot Z95.0 PRESENCE OF CARDIAC PACEMAKER 05/07/2016 SAJI MD FACC, ALI FACP CCDS Ot G47.33 OBSTRUCTIVE SLEEP APNEA (ADULT) (PEDIATR 05/07/2016 SAJI FACC, ALI FACP CCDS Ot I10 ESSENTIAL (PRIMARY) HYPERTENSION 05/07/2016 SAJI BURNETT FACC, ALI FACP CCDS Ot I47.1 SUPRAVENTRICULAR TACHYCARDIA 05/07/2016 SAJI MD FACC, ALI FACP CCDS Ot I49.5 SICK SINUS SYNDROME 05/07/2016 SAJI MD FACC, ALI FACP CCDS Ot R00.2 PALPITATIONS 05/07/2016 SAJI MD [facility], ALI FACP CCDS Ot Z72.0 TOBACCO USE 05/07/2016 SAJI FACC, ALI FACP CCDS Ot Z95.0 PRESENCE OF CARDIAC PACEMAKER 05/13/2016 SAJI BURNETT [facility], ALI FACP CCDS Ot G47.33 OBSTRUCTIVE SLEEP APNEA (ADULT) (PEDIATR 05/13/2016 [facility], ALI FACP CCDS Ot I10 ESSENTIAL (PRIMARY) HYPERTENSION 05/13/2016 SAJI BURNETT [facility], ALI FACP CCDS Ot I47.1 SUPRAVENTRICULAR TACHYCARDIA 05/13/2016 SAJI BURNETT [facility], ALI FACP CCDS Ot I49.5 SICK SINUS SYNDROME 05/13/2016 SAJI MD [facility], ALI FACP CCDS Ot R00.2 PALPITATIONS 05/13/2016 SAJI BURNETT [facility], ALI FACP CCDS Ot Z72.0 TOBACCO USE 05/13/2016 SAJI BURNETT [facility], ALI FACP CCDS Ot Z95.0 PRESENCE OF [...] FOLLOWING 06/19/2016 ALEX[place]RI[place] GRIFFITH Ot Z79.899 OTHER [facility] (CURRENT) DRUG THERAPY 06/19/2016 [place] GRIFFITH Ot Z95.0 PRESENCE OF CARDIAC PACEMAKER 11/10/2016 SAJI BURNETT FACC, RANCHO FACP CCDS Ot G47.33 OBSTRUCTIVE SLEEP APNEA (ADULT) (PEDIATR 11/10/2016 SAJI BURNETT FACC, ALI FACP CCDS Ot I10 ESSENTIAL (PRIMARY) HYPERTENSION 11/10/2016 SAJI BURNETT FACC, ALI FACP CCDS Ot I47.1 SUPRAVENTRICULAR TACHYCARDIA 11/10/2016 SAJI BURNETT FACC, ALI FACP CCDS Ot I49.5 SICK SINUS SYNDROME 11/10/2016 SAJI BURNETT FACC, RANCHO FACP CCDS Ot R00.2 PALPITATIONS 11/10/2016 SAJI BURNETT FACC, ALI FACP CCDS Ot Z72.0 TOBACCO USE 11/10/2016 SAJI BURNETT FACC, ALI FACP CCDS Ot Z95.0 PRESENCE OF CARDIAC PACEMAKER 11/27/2016 FRITZ HELMS MD Ot D49.2 NEOPLASM OF UNSP BEHAVIOR OF BONE, SOFT 11/27/2016 FRITZ HELMS MD Ot Z98.890 OTHER SPECIFIED POSTPROCEDURAL STATES 12/29/2016 SAJI BURNETT FACC ALI FACP CCDS Ot I47.2 VENTRICULAR TACHYCARDIA [...] Ot I47.1 SUPRAVENTRICULAR TACHYCARDIA 02/16/2017 SAJI BURNETT FACC, ALI FACP CCDS Ot I47.2 VENTRICULAR TACHYCARDIA 02/16/2017 SAJI BURNETT FACC, ALI FACP CCDS Ot Z72.0 TOBACCO USE 02/16/2017 SAJI BURNETT FACC, ALI FACP CCDS Ot Z95.0 PRESENCE OF CARDIAC PACEMAKER 03/03/2017 SAJI BURNETT FACC, ALI FACP CCDS Ot E66.8 OTHER OBESITY 03/03/2017 SAJI BURNETT FACC, ALI FACP CCDS Ot G47.33 OBSTRUCTIVE SLEEP APNEA (ADULT) (PEDIATR 03/03/2017 SAJI BURNETT FACC, ALI FACP CCDS Ot I10 ESSENTIAL (PRIMARY) HYPERTENSION 03/03/2017 SAJI BURNETT FACC, ALI FACP CCDS Ot I47.1 SUPRAVENTRICULAR TACHYCARDIA 03/03/2017 SAJI BURNETT FACC, ALI FACP CCDS Ot I47.2 VENTRICULAR TACHYCARDIA 03/03/2017 SAJI BURNETT FACC, ALI FACP CCDS Ot Z72.0 TOBACCO USE 03/03/2017 SAJI BURNETT FACC, ALI FACP CCDS Ot Z95.0 PRESENCE OF CARDIAC PACEMAKER 03/03/2017 KAYLA KOENIG CONGRESSIONAL REPRESENTATIVE Ot E66.01 MORBID (SEVERE) OBESITY DUE TO EXCESS CA 03/03/2017 KAYLA KOENIG CONGRESSIONAL REPRESENTATIVE Ot I10 ESSENTIAL (PRIMARY) HYPERTENSION 03/03/2017 KAYLA KOENIG CONGRESSIONAL REPRESENTATIVE Ot I47.1 SUPRAVENTRICULAR TACHYCARDIA 03/03/2017 KAYLA KOENIG CONGRESSIONAL REPRESENTATIVE Ot I47.2 VENTRICULAR TACHYCARDIA 03/03/2017 KAYLA KOENIG CONGRESSIONAL REPRESENTATIVE Ot I49.5 SICK SINUS SYNDROME 03/03/2017 KAYLA KOENIG CONGRESSIONAL REPRESENTATIVE Ot R00.2 PALPITATIONS 03/10/[address] COMMISSIONER Ot I47.2 VENTRICULAR TACHYCARDIA 03/10/[address] COMMISSIONER Ot I51.4 MYOCARDITIS, UNSPECIFIED 03/24/[address] COMMISSIONER Ot I47.2 VENTRICULAR TACHYCARDIA 03/24/[address] COMMISSIONER Ot I51.4 MYOCARDITIS, UNSPECIFIED 05/06/2017 Brown, Jarred [...] BURNETT, PAMELA Negron Ot R05 COUGH 05/17/2017 PAMELA LEE MD Ot R59.1 GENERALIZED ENLARGED LYMPH NODES 05/17/2017 PAMELA LEE MD Ot R05 COUGH 05/17/2017 PAMELA LEE MD Ot R59.1 GENERALIZED ENLARGED LYMPH NODES 05/19/2017 SAJI BURNETT FACAnalisa, RANCHO BRADLEYP CCDS Ot G47.33 OBSTRUCTIVE SLEEP APNEA (ADULT) (PEDIATR 05/19/2017 SAJI BURNETT FACAnalisa, ALI FACP CCDS Ot I10 ESSENTIAL (PRIMARY) HYPERTENSION 05/19/2017 SAJI BURNETT FACC, ALI FACP CCDS Ot I47.1 SUPRAVENTRICULAR TACHYCARDIA 05/19/2017 SAJI BURNETT FACC, ALI FACP CCDS Ot I49.5 SICK SINUS SYNDROME 05/19/2017 SAJI BURNETT FACC, ALI FACP CCDS Ot R00.2 PALPITATIONS 05/19/2017 SAJI BURNETT FACC, ALI FACP CCDS [...] PRESENCE OF CARDIAC PACEMAKER 05/19/2017 KAYLA KOENIG CONGRESSIONAL REPRESENTATIVE Ot E66.01 MORBID (SEVERE) OBESITY DUE TO EXCESS CA 05/19/2017 JAMILAHKAYLA SORIANO CONGRESSIONAL REPRESENTATIVE Ot I10 ESSENTIAL (PRIMARY) HYPERTENSION 05/19/2017 KAYLA KOENIG CONGRESSIONAL REPRESENTATIVE Ot I47.1 SUPRAVENTRICULAR TACHYCARDIA 05/19/2017 KAYLA KOENIG CONGRESSIONAL REPRESENTATIVE Ot I47.2 VENTRICULAR TACHYCARDIA 05/19/2017 KAYLA KOENIG CONGRESSIONAL REPRESENTATIVE Ot I49.5 SICK SINUS SYNDROME 05/19/2017 KAYLA KOENIG CONGRESSIONAL REPRESENTATIVE Ot R00.2 PALPITATIONS 05/19/[address] COMMISSIONER Ot I47.2 VENTRICULAR TACHYCARDIA 05/19/[address] COMMISSIONER Ot I51.4 MYOCARDITIS, UNSPECIFIED 05/19/2017 JESUS BURNETT, [...] SPECIFIED POSTPROCEDURAL STATES 07/08/2017 SAJI BURNETT FACC, ALI FACP CCDS Ot I47.2 VENTRICULAR TACHYCARDIA 07/08/2017 SAJI FAC, ALI FACP CCDS Ot Z95.0 PRESENCE OF CARDIAC PACEMAKER 07/08/2017 SAJI FACC, ALI FACP CCDS Ot E66.8 OTHER OBESITY 07/08/2017 SAJI MD FACC, ALI FACP CCDS Ot G47.33 OBSTRUCTIVE SLEEP APNEA (ADULT) (PEDIATR 07/08/2017 SAJI MD FACC, ALI FACP CCDS Ot I10 ESSENTIAL (PRIMARY) HYPERTENSION 07/08/2017 SAJI MD FACC, ALI FACP CCDS Ot I47.1 SUPRAVENTRICULAR TACHYCARDIA 07/08/2017 SAJI FACC, ALI FACP CCDS Ot I47.2 VENTRICULAR TACHYCARDIA 07/08/2017 [facility] FAC, ALI FACP CCDS Ot Z72.0 TOBACCO USE 07/08/2017 SAJI MD FACC, ALI FACP CCDS Ot Z95.0 PRESENCE OF CARDIAC PACEMAKER 07/08/2017 [facility] F[facility] CCDS Ot E66.8 OTHER OBESITY 07/08/2017 SAJI MD FAC, ALI FACP CCDS Ot G47.33 OBSTRUCTIVE SLEEP APNEA (ADULT) (PEDIATR 07/08/2017 SAJI BURNETT [facility], ALI FACP CCDS Ot I10 ESSENTIAL (PRIMARY) HYPERTENSION 07/08/2017 [facility], ALI FACP CCDS Ot I47.1 SUPRAVENTRICULAR TACHYCARDIA 07/08/2017 [facility], ALI FACP CCDS Ot I47.2 VENTRICULAR TACHYCARDIA 07/08/2017 [facility], ALI FACP CCDS Ot Z72.0 TOBACCO USE 07/08/2017 [facility], ALI FACP CCDS Ot Z95.0 PRESENCE OF CARDIAC PACEMAKER 07/08/2017 KAYLA KOENIG CONGRESSIONAL REPRESENTATIVE Ot E66.01 MORBID (SEVERE) OBESITY DUE TO EXCESS CA 07/08/2017 KAYLA KOENIG L CONGRESSIONAL REPRESENTATIVE Ot I10 ESSENTIAL (PRIMARY) HYPERTENSION 07/08/2017 KAYLA KOENIG CONGRESSIONAL REPRESENTATIVE Ot I47.1 SUPRAVENTRICULAR TACHYCARDIA 07/08/2017 KAYLA KOENIG L CONGRESSIONAL REPRESENTATIVE Ot I47.2 VENTRICULAR TACHYCARDIA 07/08/2017 KAYLA KOENIG L CONGRESSIONAL REPRESENTATIVE Ot I49.5 SICK SINUS SYNDROME 07/08/2017 KAYLA KOENIG CONGRESSIONAL REPRESENTATIVE Ot R00.2 PALPITATIONS 07/08/[address] COMMISSIONER Ot I47.2 VENTRICULAR TACHYCARDIA 07/08/[address] COMMISSIONER Ot I51.4 MYOCARDITIS, UNSPECIFIED 07/08/2017 JESUS BURNETT, [...] APRN Ot G47.30 SLEEP APNEA, UNSPECIFIED 07/12/2017 PAHM BLACKMON APRN Ot I10 ESSENTIAL (PRIMARY) HYPERTENSION [...] OTHER DISEASES OF TH 02/04/[address] COMMISSIONER Ot Z87.891 PERSONAL HISTORY OF NICOTINE DEPENDENCE 02/04/[address] COMMISSIONER Ot Z88.0 ALLERGY STATUS TO PENICILLIN 02/04/[address] COMMISSIONER Ot Z88.6 ALLERGY STATUS TO ANALGESIC AGENT STATUS 02/04/[address] COMMISSIONER Ot Z92.21 PERSONAL HISTORY OF ANTINEOPLASTIC CHEMO 02/04/[address] COMMISSIONER Ot Z95.0 PRESENCE OF CARDIAC PACEMAKER 02/04/2018 [...] FACP CCDS Ot R00.2 PALPITATIONS 02/04/2018 SAJI BRADLEYC, ALI FACP CCDS Ot Z72.0 TOBACCO USE 02/04/2018 SAJI BURNETT FACC, ALI FACP CCDS Ot Z95.0 PRESENCE OF CARDIAC PACEMAKER 02/04/2018 FRITZ HELMS MD Ot D49.2 NEOPLASM OF UNSP BEHAVIOR OF BONE, SOFT 02/04/2018 FRITZ HELMS MD Ot Z98.890 OTHER SPECIFIED POSTPROCEDURAL STATES 02/04/2018 SAJI BRADLEYC, ALI FACP CCDS Ot I47.2 VENTRICULAR TACHYCARDIA 02/04/2018 SAJI BRADLEYC, ALI FACP CCDS Ot Z95.0 PRESENCE OF CARDIAC PACEMAKER 02/04/2018 SAJI BRADLEYC, ALI FACP CCDS Ot E66.8 OTHER OBESITY 02/04/2018 SAJI BRADLEYC, ALI FACP CCDS Ot G47.33 OBSTRUCTIVE SLEEP APNEA (ADULT) (PEDIATR 02/04/2018 SAJI BURNETT FACC, ALI FACP CCDS Ot I10 ESSENTIAL (PRIMARY) HYPERTENSION 02/04/2018 SAJI BURNETT FACC, ALI FACP CCDS Ot I47.1 SUPRAVENTRICULAR TACHYCARDIA 02/04/2018 SAJI BRADLEYC, ALI FACP CCDS Ot I47.2 VENTRICULAR TACHYCARDIA 02/04/2018 SAJI BURNETT FAC, ALI FACP CCDS Ot Z72.0 TOBACCO USE 02/04/2018 SAJI BURNETT FAC, ALI FACP CCDS Ot Z95.0 PRESENCE OF CARDIAC PACEMAKER 02/04/2018 SAJI BURNETT FAC, ALI FACP CCDS Ot E66.8 OTHER OBESITY 02/04/2018 SAJI BURNETT FACC, ALI FACP CCDS Ot G47.33 OBSTRUCTIVE SLEEP APNEA (ADULT) (PEDIATR 02/04/2018 SAJI BURNETT FAC, ALI FACP CCDS Ot I10 ESSENTIAL (PRIMARY) HYPERTENSION 02/04/2018 SAJI BURNETT [facility], ALI FACP CCDS Ot I47.1 SUPRAVENTRICULAR TACHYCARDIA 02/04/2018 SAJI BURNETT [facility], ALI FACP CCDS Ot I47.2 VENTRICULAR TACHYCARDIA 02/04/2018 SAJI BURNETT FAC, ALI FACP CCDS Ot Z72.0 TOBACCO USE 02/04/2018 SAJI BURNETT [facility], ALI FACP CCDS Ot Z95.0 PRESENCE OF CARDIAC PACEMAKER 02/04/2018 KAYLA KOENIG CONGRESSIONAL REPRESENTATIVE Ot E66.01 MORBID (SEVERE) OBESITY DUE TO EXCESS CA 02/04/2018 KAYLA KOENIG L CONGRESSIONAL REPRESENTATIVE Ot I10 ESSENTIAL (PRIMARY) HYPERTENSION 02/04/2018 KAYLA KOENIG CONGRESSIONAL REPRESENTATIVE Ot I47.1 SUPRAVENTRICULAR TACHYCARDIA 02/04/2018 KAYLA KOENIG CONGRESSIONAL REPRESENTATIVE Ot I47.2 VENTRICULAR TACHYCARDIA 02/04/2018 KAYLA KOENIG CONGRESSIONAL REPRESENTATIVE Ot I49.5 SICK SINUS SYNDROME 02/04/2018 KAYLA KOENIG CONGRESSIONAL REPRESENTATIVE Ot R00.2 PALPITATIONS 02/04/[address] COMMISSIONER Ot I47.2 VENTRICULAR TACHYCARDIA 02/04/[address] COMMISSIONER Ot I51.4 MYOCARDITIS, UNSPECIFIED 02/04/2018 JESUS BURNETT, [...] YAÑEZIS Ot I10 ESSENTIAL (PRIMARY) HYPERTENSION 02/10/2018 SAI YAÑEZIS Ot J06.9 ACUTE UPPER RESPIRATORY INFECTION, UNSPE 02/10/2018 KRYSTEN YAÑEZ Ot J40 BRONCHITIS, NOT SPECIFIED ACUTE OR CH 02/10/2018 KRYSTEN YAÑEZ Ot R05 COUGH 02/10/2018 SAI YAÑEZIS Ot Z79.51 SPRAYER MACHINE (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 OF INHALED STERO 02/10/2018 KRYSTEN YAÑEZ Ot Z86.79 PERSONAL HISTORY OF OTHER DISEASES OF TH 02/10/2018 KRYSTEN YAÑEZ Ot Z87.891 PERSONAL HISTORY OF NICOTINE DEPENDENCE 02/10/2018 KRYSTEN YAÑEZ Ot Z88.0 ALLERGY STATUS TO PENICILLIN 02/10/2018 [...] YAÑEZ Ot F91.3 OPPOSITIONAL DEFIANT DISORDER 02/14/2018 KRYSTEN YAÑEZ Ot G43.909 MIGRAINE, UNSP, NOT INTRACTABLE, WITHOUT 02/14/2018 KRYSTEN YAÑEZ Ot G47.30 SLEEP APNEA, UNSPECIFIED 02/14/2018 KRYSTEN YAÑEZ Ot I10 ESSENTIAL (PRIMARY) HYPERTENSION 02/14/2018 KRYSTEN YAÑEZ Ot J06.9 ACUTE UPPER RESPIRATORY INFECTION, UNSPE 02/14/2018 SAI YAÑEZIS Ot J40 BRONCHITIS, NOT SPECIFIED ACUTE OR CH 02/14/2018 KRYSTEN YAÑEZ Ot R05 COUGH 02/14/2018 KRYSTEN YAÑEZ Ot Z79.51 SPRAYER MACHINE (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 OF INHALED STERO 02/14/2018 KRYSTEN YAÑEZ Ot Z86.79 PERSONAL HISTORY OF OTHER DISEASES OF TH 02/14/2018 KRSYTEN YAÑEZ Ot Z87.891 PERSONAL HISTORY OF NICOTINE DEPENDENCE 02/14/2018 KRYSTEN YAÑEZ Ot Z88.0 ALLERGY STATUS TO PENICILLIN 02/14/2018 SAI YAÑEZIS Ot Z88.6 ALLERGY STATUS TO ANALGESIC AGENT STATUS 02/14/2018 KRYSTEN YAÑEZ Ot Z95.0 PRESENCE OF CARDIAC PACEMAKER 02/14/2018 SAI YAÑEZIS Ot Z98.890 OTHER SPECIFIED POSTPROCEDURAL STATES 04/12/2018 KRYSTEN YAÑEZ Ot E78.00 PURE HYPERCHOLESTEROLEMIA, UNSPECIFIED 04/12/2018 KRYSTEN YAÑEZ Ot F41.9 ANXIETY DISORDER, UNSPECIFIED 04/12/2018 KRYSTEN YAÑEZ Ot F43.10 POST-TRAUMATIC STRESS DISORDER, UNSPECIF 04/12/2018 KRYSTEN YAÑEZ Ot F91.3 OPPOSITIONAL DEFIANT DISORDER 04/12/2018 KRYSTEN YAÑEZ Ot G43.909 MIGRAINE, UNSP, NOT INTRACTABLE, WITHOUT 04/12/2018 SAI YAÑEZIS Ot G47.30 SLEEP APNEA, UNSPECIFIED 04/12/2018 KRYSTEN YAÑEZ Ot I10 ESSENTIAL (PRIMARY) HYPERTENSION 04/12/2018 KRYSTEN YAÑEZ Ot M19.011 PRIMARY OSTEOARTHRITIS, RIGHT SHOULDER 04/12/2018 KRYSTEN YAÑEZ Ot M79.605 PAIN IN LEFT LEG 04/12/2018 KRYSTEN YAÑEZ Ot S90.122A CONTUSION OF LEFT LESSER TOE(S) W/O JUAN 04/12/2018 KRYSTEN YAÑEZ Ot W22.03XA WALKED INTO FURNITURE, INITIAL ENCOUNTER 04/12/2018 KRYSTEN YAÑEZ Ot Z79.51 SPRAYER MACHINE (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 OF INHALED STERO 04/12/2018 KRYSTEN YAÑEZ Ot Z85.828 PERSONAL HISTORY OF OTHER MALIGNANT NEOP 04/12/2018 KRYSTEN YAÑEZ Ot Z87.891 PERSONAL HISTORY OF NICOTINE DEPENDENCE 04/12/2018 KRYSTEN YAÑEZ Ot Z88.0 ALLERGY STATUS TO PENICILLIN 04/12/2018 KRYSTEN YAÑEZ Ot Z88.2 ALLERGY STATUS TO SULFONAMIDES STATUS 04/12/2018 KRYSTEN YAÑEZ Ot Z92.21 PERSONAL HISTORY OF ANTINEOPLASTIC CHEMO 04/12/2018 SAI YAÑEZIS Ot Z95.0 PRESENCE OF CARDIAC PACEMAKER 04/12/2018 KRYSTEN YAÑEZ Ot Z98.890 OTHER SPECIFIED POSTPROCEDURAL STATES 04/12/2018 SAJI BURNETT FACC, ALI FACP CCDS Ot G47.33 OBSTRUCTIVE SLEEP APNEA (ADULT) (PEDIATR 04/12/2018 SAJI BURNETT FACC, ALI FACP CCDS Ot I10 ESSENTIAL (PRIMARY) HYPERTENSION 04/12/2018 SAJI BRADLEYC, ALI FACP CCDS Ot I47.1 SUPRAVENTRICULAR TACHYCARDIA 04/12/2018 SAJI BURNETT FACC, ALI FACP CCDS Ot I49.5 SICK SINUS SYNDROME 04/12/2018 SAJI BURNETT FACC, ALI FACP CCDS Ot R00.2 PALPITATIONS 04/12/2018 SAJI BURNETT FACC, ALI FACP CCDS [...] CCDS Ot I47.1 SUPRAVENTRICULAR TACHYCARDIA 04/12/2018 SAJI BRADLEYC, ALI FACP CCDS Ot I47.2 VENTRICULAR TACHYCARDIA 04/12/2018 SAJI BRADLEYC, ALI FACP CCDS Ot Z72.0 TOBACCO USE 04/12/2018 SAJI BURNETT FACC, ALI FACP CCDS Ot Z95.0 PRESENCE OF CARDIAC PACEMAKER 04/12/2018 SAJI BURNETT FACC, ALI FACP CCDS Ot E66.8 OTHER OBESITY 04/12/2018 SAJI BURNETT FAC, ALI FACP CCDS Ot G47.33 OBSTRUCTIVE SLEEP APNEA (ADULT) (PEDIATR 04/12/2018 SAJI BURNETT FAC, ALI FACP CCDS Ot I10 ESSENTIAL (PRIMARY) HYPERTENSION 04/12/2018 SAJI BURNETT FAC, ALI FACP CCDS Ot I47.1 SUPRAVENTRICULAR TACHYCARDIA 04/12/2018 SAJI BURNETT FAC, ALI FACP CCDS Ot I47.2 VENTRICULAR TACHYCARDIA 04/12/2018 SAJI BURNETT [facility], ALI FACP CCDS Ot Z72.0 TOBACCO USE 04/12/2018 SAJI BURNETT [facility], ALI FACP CCDS Ot Z95.0 PRESENCE OF CARDIAC PACEMAKER 04/12/2018 KAYLA KOENIG CONGRESSIONAL REPRESENTATIVE Ot E66.01 MORBID (SEVERE) OBESITY DUE TO EXCESS CA 04/12/2018 KAYLA KOENIG L CONGRESSIONAL REPRESENTATIVE Ot I10 ESSENTIAL (PRIMARY) HYPERTENSION 04/12/2018 KAYLA KOENIG CONGRESSIONAL REPRESENTATIVE Ot I47.1 SUPRAVENTRICULAR TACHYCARDIA 04/12/2018 KAYLA KOENIG L CONGRESSIONAL REPRESENTATIVE Ot I47.2 VENTRICULAR TACHYCARDIA 04/12/2018 KAYLA KOENIG CONGRESSIONAL REPRESENTATIVE Ot I49.5 SICK SINUS SYNDROME 04/12/2018 KAYLA KOENIG CONGRESSIONAL REPRESENTATIVE Ot R00.2 PALPITATIONS 04/12/[address] COMMISSIONER Ot I47.2 VENTRICULAR TACHYCARDIA 04/12/[address] COMMISSIONER Ot I51.4 MYOCARDITIS, UNSPECIFIED 04/12/2018 JESUS BURNETT, [...] INITIAL ENCOUNTER 04/14/2018 KRYSTEN YAÑEZ Ot Z79.51 [facility] (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 OF INHALED STERO 04/14/2018 KRYSTEN [...] Ot Z98.890 OTHER SPECIFIED POSTPROCEDURAL STATES 05/05/2018 HENRI BURNETT, ALENA R Ot I10 ESSENTIAL (PRIMARY) HYPERTENSION 05/09/2018 ALENA ÁLVAREZ MD R Ot I10 ESSENTIAL (PRIMARY) HYPERTENSION 05/23/2018 ALENA ÁLVAREZ MD R Ot I10 ESSENTIAL (PRIMARY) HYPERTENSION 06/02/2018 CHEMA BURNETT, DAVID Lyn Ot E78.00 PURE HYPERCHOLESTEROLEMIA, UNSPECIFIED 06/02/2018 CHEMA BURNETT, DAVID Lyn Ot F41.9 ANXIETY DISORDER, UNSPECIFIED 06/02/2018 CHEMA BURNETT, DAVID Lyn Ot F43.10 POST-TRAUMATIC STRESS DISORDER, UNSPECIF 06/02/2018 CHEMA BURNETT, DAVID Lyn Ot F91.3 OPPOSITIONAL DEFIANT DISORDER 06/02/2018 CHEMA BURNETT, DAVID Lyn Ot G43.909 MIGRAINE, UNSP, NOT INTRACTABLE, WITHOUT 06/02/2018 CHEMA BURNETT, DAVID Lyn Ot G47.30 SLEEP APNEA, UNSPECIFIED 06/02/2018 DAVID BEAR MD Ot I10 ESSENTIAL (PRIMARY) HYPERTENSION 06/02/2018 DAVID BEAR MD Ot M19.011 PRIMARY OSTEOARTHRITIS, RIGHT SHOULDER 06/02/2018 DAVID BEAR MD Ot R51 HEADACHE 06/02/2018 DAVID BEAR MD Ot R53.1 WEAKNESS 06/02/2018 DAVID BEAR MD Ot Z85.831 PERSONAL HISTORY OF MALIGNANT NEOPLASM O 06/02/2018 DAVID BEAR MD Ot Z87.19 PERSONAL HISTORY OF OTHER DISEASES OF TH 06/02/2018 DAVID BEAR MD Ot Z87.891 PERSONAL HISTORY OF NICOTINE DEPENDENCE 06/02/2018 DAVID BEAR MD Ot Z88.0 ALLERGY STATUS TO PENICILLIN 06/02/2018 DAVID BEAR MD Ot Z88.6 ALLERGY STATUS TO ANALGESIC AGENT STATUS 06/02/2018 DAVID BEAR MD Ot Z92.21 PERSONAL HISTORY OF ANTINEOPLASTIC CHEMO 06/02/2018 DAVID BEAR MD Ot Z95.0 PRESENCE OF CARDIAC PACEMAKER 06/04/2018 DAVID BEAR MD Ot E78.00 PURE HYPERCHOLESTEROLEMIA, UNSPECIFIED 06/04/2018 DAVID BEAR MD Ot F41.9 ANXIETY DISORDER, UNSPECIFIED 06/04/2018 DAVID BEAR MD Ot F43.10 POST-TRAUMATIC STRESS DISORDER, UNSPECIF 06/04/2018 DAVID BEAR MD Ot F91.3 OPPOSITIONAL DEFIANT DISORDER 06/04/2018 DAVID BEAR MD Ot G43.909 MIGRAINE, UNSP, NOT INTRACTABLE, WITHOUT 06/04/2018 DAVID BEAR MD Ot G47.30 SLEEP APNEA, UNSPECIFIED 06/04/2018 DAVID BEAR MD Ot I10 ESSENTIAL (PRIMARY) HYPERTENSION 06/04/2018 DAVID BEAR MD Ot M19.011 PRIMARY OSTEOARTHRITIS, RIGHT SHOULDER 06/04/2018 DAVID BEAR MD Ot R51 HEADACHE 06/04/2018 DAVID BEAR MD Ot R53.1 WEAKNESS 06/04/2018 DAVID BEAR MD Ot Z85.831 PERSONAL HISTORY OF MALIGNANT NEOPLASM O 06/04/2018 DAVID BEAR MD Ot Z87.19 PERSONAL HISTORY OF OTHER DISEASES OF TH 06/04/2018 DAVID BEAR MD Ot Z87.891 PERSONAL HISTORY OF NICOTINE DEPENDENCE 06/04/2018 DAVID BEAR MD Ot Z88.0 ALLERGY STATUS TO PENICILLIN 06/04/2018 DAVID BEAR MD Ot Z88.6 ALLERGY STATUS TO ANALGESIC AGENT STATUS 06/04/2018 DAVID BEAR MD Ot Z92.21 PERSONAL HISTORY OF ANTINEOPLASTIC CHEMO 06/04/2018 DAVID BEAR MD Ot Z95.0 PRESENCE OF CARDIAC PACEMAKER 07/19/2018 SAJI BURNETT FACC, RANCHO FACP CCDS Ot E66.9 OBESITY, UNSPECIFIED 07/19/2018 SAJI BURNETT FACC, RANCHO FACP CCDS Ot G47.33 OBSTRUCTIVE SLEEP APNEA (ADULT) (PEDIATR 07/19/2018 SAJI BURNETT FACC, ALI FACP CCDS Ot I10 ESSENTIAL (PRIMARY) HYPERTENSION 07/19/2018 SAJI BURNETT FACC, RANCHO FACP CCDS Ot 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 07/19/2018 SAJI BURNETT FACC, ALI FACP CCDS Ot I47.2 VENTRICULAR TACHYCARDIA 07/19/2018 SAJI BURNETT FACC, ALI FACP CCDS Ot I49.5 SICK SINUS SYNDROME 07/19/2018 SAJI BURNETT FACC, ALI FACP CCDS Ot R42 DIZZINESS AND GIDDINESS 07/19/2018 SAJI BURNETT FACC, ALI FACP CCDS Ot Z68.41 BODY MASS INDEX (BMI) 40.0-44.9, ADULT 07/19/2018 SAJI BURNETT FACC, RANCHO FACP CCDS Ot Z95.0 PRESENCE OF CARDIAC PACEMAKER 07/26/2018 SAJI BURNETT FACC, ALI FACP CCDS Ot G47.33 OBSTRUCTIVE SLEEP APNEA (ADULT) (PEDIATR 07/26/2018 SAJI BURNETT FACC, ALI FACP CCDS Ot I10 ESSENTIAL (PRIMARY) HYPERTENSION 07/26/2018 SAJI UBRNETT FACC, ALI FACP CCDS Ot I47.1 SUPRAVENTRICULAR TACHYCARDIA 07/26/2018 SAJI BURNETT FACC, ALI FACP CCDS Ot I49.5 SICK SINUS SYNDROME 07/26/2018 SAJI BURNETT FACC, ALI FACP CCDS Ot R00.2 PALPITATIONS 07/26/2018 SAJI BRADLEYC, ALI FACP CCDS Ot Z72.0 TOBACCO USE 07/26/2018 SAJI BURNETT FACC, ALI FACP CCDS Ot Z95.0 PRESENCE OF CARDIAC PACEMAKER 07/26/2018 FRITZ HELMS MD Ot D49.2 NEOPLASM OF UNSP BEHAVIOR OF BONE, SOFT 07/26/2018 FRITZ HELMS MD Ot Z98.890 OTHER SPECIFIED POSTPROCEDURAL STATES 07/26/2018 SAJI BRADLEYC, ALI FACP CCDS Ot I47.2 VENTRICULAR TACHYCARDIA 07/26/2018 SAJI BRADLEYC, ALI FACP CCDS Ot Z95.0 PRESENCE OF CARDIAC PACEMAKER 07/26/2018 SAJI BRADLEYC, ALI FACP CCDS Ot E66.8 OTHER OBESITY 07/26/2018 SAJI BRADLEYC, ALI FACP CCDS Ot G47.33 OBSTRUCTIVE SLEEP APNEA (ADULT) (PEDIATR 07/26/2018 SAJI BRADLEYC, ALI FACP CCDS Ot I10 ESSENTIAL (PRIMARY) HYPERTENSION 07/26/2018 SAJI BRADLEYC, ALI FACP CCDS Ot I47.1 SUPRAVENTRICULAR TACHYCARDIA 07/26/2018 SAJI BRADLEYC, ALI FACP CCDS Ot I47.2 VENTRICULAR TACHYCARDIA 07/26/2018 SAJI BRADLEYC, ALI FACP CCDS Ot Z72.0 TOBACCO USE 07/26/2018 SAJI BURNETT FACC, ALI FACP CCDS Ot Z95.0 PRESENCE OF CARDIAC PACEMAKER 07/26/2018 SAJI BRADLEYC, ALI FACP CCDS Ot E66.8 OTHER OBESITY 07/26/2018 SAJI BURNETT FACC, ALI FACP CCDS Ot G47.33 OBSTRUCTIVE SLEEP APNEA (ADULT) (PEDIATR 07/26/2018 SAJI BRADLEYC, ALI FACP CCDS Ot I10 ESSENTIAL (PRIMARY) HYPERTENSION 07/26/2018 SAJI BRADLEYC, ALI FACP CCDS Ot I47.1 SUPRAVENTRICULAR TACHYCARDIA 07/26/2018 SAJI BRADLEYC, ALI FACP CCDS Ot I47.2 VENTRICULAR TACHYCARDIA 07/26/2018 SAJI BURNETT FACC, ALI FACP CCDS Ot Z72.0 TOBACCO USE 07/26/2018 SAJI BURNETT FACC, ALI FACP CCDS Ot Z95.0 PRESENCE OF CARDIAC PACEMAKER 07/26/2018 KAYLA KOENIG CONGRESSIONAL REPRESENTATIVE Ot E66.01 MORBID (SEVERE) OBESITY DUE TO EXCESS CA 07/26/2018 KAYLA KOENIG CONGRESSIONAL REPRESENTATIVE Ot I10 ESSENTIAL (PRIMARY) HYPERTENSION 07/26/2018 KAYLA KOENIG CONGRESSIONAL REPRESENTATIVE Ot I47.1 SUPRAVENTRICULAR TACHYCARDIA 07/26/2018 KAYLA KOENIG CONGRESSIONAL REPRESENTATIVE Ot I47.2 VENTRICULAR TACHYCARDIA 07/26/2018 KAYLA KOENIG CONGRESSIONAL REPRESENTATIVE Ot I49.5 SICK SINUS SYNDROME 07/26/2018 KAYLA KOENIG CONGRESSIONAL REPRESENTATIVE Ot R00.2 PALPITATIONS 07/26/[address] COMMISSIONER Ot I47.2 VENTRICULAR TACHYCARDIA 07/26/[address] COMMISSIONER Ot I51.4 MYOCARDITIS, UNSPECIFIED 07/26/2018 JESUS BURNETT, PAMELA Negron Ot R05 COUGH 07/26/2018 JESUS BURNETT, PAMELA Negron Ot R59.1 GENERALIZED ENLARGED LYMPH NODES 07/26/2018 ALENA ÁLVAREZ MD Ot I10 ESSENTIAL (PRIMARY) HYPERTENSION 07/26/2018 ALENA ÁLVAREZ MD Ot I10 ESSENTIAL (PRIMARY) HYPERTENSION 07/26/2018 SAJI BURNETT FACC, RANCHO FACP CCDS Ot E66.9 OBESITY, UNSPECIFIED 07/26/2018 SAJI BURNETT FACC, ALI FACP CCDS Ot G47.33 OBSTRUCTIVE SLEEP APNEA (ADULT) (PEDIATR 07/26/2018 SAJI BURNETT FACC, ALI FACP CCDS Ot I10 ESSENTIAL (PRIMARY) HYPERTENSION 07/26/2018 SAJI BURNETT FACC, ALI FACP CCDS Ot 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 07/26/2018 SAJI BURNETT FACC, ALI FACP CCDS Ot I47.2 VENTRICULAR TACHYCARDIA 07/26/2018 SAJI BURNETT FACC, ALI FACP CCDS Ot I49.5 SICK SINUS SYNDROME 07/26/2018 SAJI BURNETT FACC, ALI FACP CCDS Ot R42 DIZZINESS AND GIDDINESS 07/26/2018 SAJI BURNETT FACC, ALI FACP CCDS Ot Z68.41 BODY MASS INDEX (BMI) 40.0-44.9, ADULT 07/26/2018 SAJI BURNETT FACC, ALI FACP CCDS Ot Z95.0 PRESENCE OF CARDIAC PACEMAKER 07/27/2018 SAJI BURNETT FACC, ALI FACP CCDS Ot E66.9 OBESITY, UNSPECIFIED 07/27/2018 SAJI BRADLEY, ALI FACP CCDS Ot G47.33 OBSTRUCTIVE SLEEP APNEA (ADULT) (PEDIATR 07/27/2018 SAJI BURNETT FAC, ALI FACP CCDS Ot I10 ESSENTIAL (PRIMARY) HYPERTENSION 07/27/2018 SAJI BURNETT [facility], ALI FACP CCDS Ot 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 07/27/2018 SAJI BURNETT [facility], ALI FACP CCDS Ot I47.2 VENTRICULAR TACHYCARDIA 07/27/2018 SAJI BURNETT [facility], ALI FACP CCDS Ot I49.5 SICK SINUS SYNDROME 07/27/2018 SAJI BRADLEY, ALI FACP CCDS Ot R42 DIZZINESS AND GIDDINESS 07/27/2018 SAJI BURNETT [facility], ALI FACP CCDS Ot Z68.41 BODY MASS INDEX (BMI) 40.0-44.9, ADULT 07/27/2018 SAJI BURNETT [facility], ALI FACP CCDS Ot Z95.0 PRESENCE OF CARDIAC PACEMAKER 07/28/2018 MELANIE BURNETT, JOE Ot I10 ESSENTIAL (PRIMARY) HYPERTENSION Procedures Code Description Performed By Performed On [id number] INSERT OF MONITOR DEV INTO CHEST SUBCU/F 03/12/2015 [id number] MEASURE OF CARDIAC SAMPL PRESSURE, L H 03/12/2015 [id number] FLUOROSCOPY OF MULT COR ART USING L OSM 03/12/2015 [id number] FLUOROSCOPY OF LEFT HEART USING LOW OSMO 03/12/2015 [id number] FLUOROSCOPY OF THORACIC AORTA USING LOW 03/12/2015 [...] resistant Staphylococcus aureus (MRSA) screening culture - 09/26/15 11:22 Methicillin resistant Staphylococcus aureus (MRSA) screening [...] Automated erythrocyte mean corpuscular hemoglobin concentration measurement (mass/volume) 34 g/dL 32-36 Automated erythrocyte distribution width ratio 12.8 % 10.0- 14.5 Automated blood platelet count (count/volume) 142 10*3/uL [...] Serum or plasma aspartate aminotransferase measurement (enzymatic activity/volume) 18 U/L 5-34 Serum or plasma alanine aminotransferase measurement (enzymatic activity/volume) 16 U/L 0-55 Serum or plasma protein measurement (mass/volume) 7.2 g/dL 6.4-8.2 Serum or plasma albumin measurement (mass/volume) 4.1 g/dL 3.2-4.5 Methicillin resistant Staphylococcus aureus (MRSA) screening culture - 02/20/16 08:23 Methicillin resistant Staphylococcus aureus (MRSA) screening [...] Automated erythrocyte mean corpuscular hemoglobin concentration measurement (mass/volume) 33 g/dL 32-36 Automated erythrocyte distribution width ratio 12.8 % 10.0- 14.5 Automated blood platelet count (count/volume) 127 10*3/uL [...] Serum or plasma aspartate aminotransferase measurement (enzymatic activity/volume) 14 U/L 5-34 Serum or plasma alanine aminotransferase measurement (enzymatic activity/volume) 14 U/L 0-55 Serum or plasma protein [...] Automated erythrocyte mean corpuscular hemoglobin concentration measurement (mass/volume) 34 g/dL 32-36 Automated erythrocyte distribution width ratio 12.8 % 10.0- 14.5 Automated blood platelet count (count/volume) 143 10*3/uL [...] Blood monocytes automated count (number/volume) 0.6 10*3 0.0- 1.0 Automated eosinophil count 0.1 10*3/uL 0.0-0.3 Automated [...] 17:29 Bacteria identification in wound by culture [id number] NRG QUANTITY OF GROWTH Scant Growth NRG Gram stain microscopy - 06/19/16 22:02 GRAM STAIN RESULT NO WBC'S OR BACTERIA OBSERVED NRG Bacteria identification in wound by culture - 06/19/16 22:02 Bacteria identification in wound by culture [id number] NR QUANTITY OF GROWTH Moderate Growth NRG Gram stain microscopy - 06/19/16 23:16 GRAM STAIN RESULT NO WBC'S OR BACTERIA OBSERVED NRG Bacteria identification in wound by culture - 06/19/16 23:16 Bacteria identification in wound by culture [facility] Influenza virus A and B antigen detection - 03/09/17 09:57 FLU RESULT NEGATIVE FOR INFLUENZA A AND B ANTIGENS BY IA NR * Reference lab test name - 03/09/17 09:57 * Reference lab test results RESP VIRUS PNL NR Automated blood complete blood count (hemogram) panel [...] Automated erythrocyte mean corpuscular hemoglobin concentration measurement (mass/volume) 34 g/dL 32-36 Automated erythrocyte distribution width ratio 12.9 % 10.0- 14.5 Automated blood platelet count (count/volume) 190 10*3/uL 130-400 Automated blood platelet mean volume measurement 12.3 [foz_us] 7.4-10.4 Erythrocyte sedimentation rate by westergren method - 03/09/17 10:30 Erythrocyte sedimentation rate by westergren method 1 mm 0- 15 Serum aldolase measurement - 03/09/17 10:30 Serum aldolase measurement 5.2 U/L 1.5-8.1 [id number] - 03/09/17 10:30 Screening antinuclear antibody (SERENA) assay by enzyme immunoassay <1:80 <1:80 Serum DNA double strand antibody detection - 03/09/17 10:30 Serum DNA double strand antibody assay (units/volume) 29 [iU]/mL 0-300 Cerebrospinal fluid cytomegalovirus IgG and IgM panel - 03/09/17 10:30 [id number] Negative Negative Serum cytomegalovirus IgM antibody assay [...] [mass/volume] in serum or plasma 42 % 15-59 Hepatitis A virus IgM antibody assay - 03/09/17 10:30 Hepatitis A virus IgM antibody assay Non-Reactive Non-Reactive Serum hepatitis B virus core antibody assay (units/volume) - 03/09/17 10:30 Hepatitis B core antibody measurement <0.07 <=0.50 Serum hepatitis B virus core antibody detection Non-Reactive NRG Serum herpes simplex virus 1 IgM antibody assay (units/volume) - 03/09/17 10:30 Serum herpes simplex virus 1 IgM antibody assay (units/volume) < <1:10 Herpes simplex virus (HSV) type 1 antibody panel (IgG, IgM) - 03/09/17 10:30 Serum herpes simplex virus 1 IgG antibody assay (units/volume) 13.80 % 0.00-0.89 Serum herpes simplex virus 2 IgG antibody assay by immunoassay (units/volume) 0.11 % 0.00-0.89 Cerebrospinal fluid herpes simplex virus 1+2 IgM antibody assay (units/volume) 2.14 % 0.00-0.89 [id number] - 03/09/17 10:30 Serum herpes simplex virus (HSV) type 2 IgM antibody detection <1:10 <1:10 [id number] - 03/09/17 10:30 [id number] Negative Negative Human immunodeficiency virus (HIV) type 1 and 2 antibody detection - 03/09/17 10:30 Serum HIV 1+2 antibody detection by immunoblot Non-Reactive Non-Reactive Serum hepatitis B virus surface antibody assay (units/volume) - 03/09/17 10:30 Serum hepatitis B virus surface antibody assay (units/volume) < % >=10.00 Serum hepatitis C virus antibody assay (units/volume) - 03/09/17 10:30 Serum hepatitis C virus antibody detection Non-Reactive Non- Reactive Serum protein electrophoresis - 03/09/17 10:30 Serum or plasma protein measurement (mass/volume) 7.5 % 6.6- 8.2 Pathology consultation and report SEE PATH REPORT NRG [id number] - 03/09/17 10:30 Serum tissue transglutaminase IgA antibody detection 3 0- 19 Serum gliadin IgA antibody assay (units/volume) 7 % 0-19 Gliadin IgG antibody assay 1 % 0-19 Serum or plasma IgA measurement (mass/volume) 303 % 71-263 Serum or plasma calcitriol measurement (mass/volume) - 03/09/17 10:30 Serum or plasma calcitriol measurement (mass/volume) 45.4 pg/mL 19.9-79.3 Serum cyclic citrullinated peptide antibody assay (units/volume) - 03/09/17 10:30 Serum cyclic citrullinated peptide antibody assay (units/volume) 13.8 % 0.0-19.0 Serum Varicella zoster virus IgG and IgM panel - 03/09/17 10:30 Serum Varicella zoster virus IgM antibody assay by immunoassay (units/volume) < <1:10 Serum Varicella zoster virus IgG antibody detection Positive NEGATIVE Serum Lei extractable nuclear antibody assay (units/volume) - 03/09/17 10:30 [id number] Negative Negative Serum Lei extractable nuclear antigen (YANIV) antibody assay (units/volume) < U 0-19 Ribonucleic protein (TEMPLATE FITTER) ab - 03/09/17 10:30 Ribonucleic protein antibody assay <20 0-19 HSV 1T2 PCR (BLOOD/FLUID) - 03/09/17 10:30 Herpes simplex virus (HSV) type 1 DNA detection by polymerase chain reaction Not Detected NOT DET Herpes simplex virus (HSV) type 2 DNA detection by PCR Not Detected NOT DET Lysozyme measurement - 03/09/17 10:30 Lysozyme measurement 8.4 ug/mL 5.0-11.0 [id number] - 03/09/17 10:30 Russel Davila virus DNA [...] Serum or plasma aspartate aminotransferase measurement (enzymatic activity/volume) 21 U/L 5-34 Serum or plasma alanine aminotransferase measurement (enzymatic activity/volume) 24 U/L 0-55 Serum or plasma protein measurement (mass/volume) 8.1 g/dL 6.4-8.2 Serum or plasma albumin measurement (mass/volume) 4.3 g/dL 3.2-4.5 Serum or plasma creatine kinase measurement (enzymatic activity/volume) - 03/09/17 10:34 Serum or plasma creatine kinase measurement (enzymatic activity/volume) 100 U/L 30-200 THYROID STIMULATING HORMONE - 03/09/17 10:34 THYROID STIMULATING HORMONE 0.93 u[iU]/mL 0.35-4.94 Serum or plasma C reactive protein measurement (mass/volume) - 03/09/17 10:34 Serum or plasma C reactive protein measurement (mass/volume) 0.57 mg/dL 0.00-0.50 * Reference lab test name - 03/09/17 10:34 * Reference lab test results MPO/ME-3 ANCA AB NR * Reference lab test name - 03/09/17 [...] gravity of urine by test strip 1.015 1.016-1.022 Urine protein assay by test strip, semi-quantitative [...] sediment leukocyte count by microscopy (number/high power field) [HPF] NRG Bacteria detection in urine sediment [...] - 06/18/17 13:04 ABSOLUTE NEUTROPHILS 3080 cells/uL 4507-4908 ABSOLUTE MONOCYTES 448 cells/uL 200-950 ABSOLUTE EOSINOPHILS [...] Automated erythrocyte mean corpuscular hemoglobin concentration measurement (mass/volume) 35 g/dL 32-36 Automated erythrocyte distribution width ratio 14.3 % 10.0- 14.5 Automated blood platelet count (count/volume) 167 10*3/uL [...] Blood monocytes automated count (number/volume) 0.9 10*3 0.0- 1.0 Automated eosinophil count 0.1 10*3/uL 0.0-0.3 Automated blood basophil count (count/volume) 0.0 10*3/uL 0.0-0.1 DIFFERENTIAL, MANUAL - 07/21/17 11:32 ABSOLUTE NEUTROPHILS 4992 cells/uL 7350-8443 ABSOLUTE MONOCYTES 858 cells/uL 200-950 ABSOLUTE EOSINOPHILS 0 cells/uL 15-500 ABSOLUTE BASOPHILS 0 cells/uL 0-200 NEUTROPHILS 64.0 % NRG LYMPHOCYTES 25.0 % NRG MONOCYTES 11.0 % NRG EOSINOPHILS 0 % NRG BASOPHILS 0 % NRG ABSOLUTE LYMPHOCYTES 1950 cells/uL 850-3900 PLATELET ESTIMATION ADEQUATE ADEQUATE DIFFERENTIAL, MANUAL - 09/07/17 10:45 ABSOLUTE NEUTROPHILS 3913 cells/uL 9343-4747 ABSOLUTE MONOCYTES 663 cells/uL 200-950 ABSOLUTE EOSINOPHILS [...] - 09/14/17 12:34 MAGNESIUM 2.5 mg/dL 1.5-2.5 [facility] - 09/20/17 12:10 GLUCOSE 81 mg/dL 65-99 UREA NITROGEN (BUN) 22 mg/dL 7-25 CREATININE 1.56 mg/dL 0.60-1.35 eGFR NON-AFR. CZECH 52 mL/min/1.73m2 > OR=60 eGFR 61 mL/min/1.73m2 > OR=60 BUN/CREATININE RATIO 14 (calc) 6-22 SODIUM 141 mmol/L 135-146 POTASSIUM 3.9 mmol/L 3.5-5.3 CHLORIDE 113 mmol/L 98-110 CARBON DIOXIDE 27 mmol/L 20-32 CALCIUM 9.3 mg/dL 8.6-10.3 [facility] - 09/23/17 11:28 GLUCOSE 103 mg/dL 65-99 UREA NITROGEN (BUN) 16 mg/dL 7-25 CREATININE 1.25 mg/dL 0.60-1.35 eGFR NON-AFR. CZECH 68 mL/min/1.73m2 > OR=60 eGFR 79 mL/min/1.73m2 [...] - 11/17/17 16:30 ABSOLUTE NEUTROPHILS 6780 cells/uL 2365-9694 ABSOLUTE MONOCYTES 501 cells/uL 200-950 ABSOLUTE EOSINOPHILS [...] - 12/29/17 10:59 ABSOLUTE NEUTROPHILS 4655 cells/uL 3991-8695 ABSOLUTE MONOCYTES 459 cells/uL 200-950 ABSOLUTE EOSINOPHILS [...] - 01/21/18 10:18 ABSOLUTE NEUTROPHILS 4658 cells/uL 2781-4459 ABSOLUTE MONOCYTES 878 cells/uL 200-950 ABSOLUTE EOSINOPHILS [...] 7-25 CREATININE 1.10 mg/dL 0.60-1.35 eGFR NON-AFR. CZECH 80 mL/min/1.73m2 > OR=60 eGFR 92 mL/min/1.73m2 [...] Automated erythrocyte mean corpuscular hemoglobin concentration measurement (mass/volume) 34 g/dL 32-36 Automated erythrocyte distribution width ratio 13.4 % 10.0- 14.5 Automated blood platelet count (count/volume) 201 10*3/uL [...] Blood monocytes automated count (number/volume) 1.0 10*3 0.0- 1.0 Automated eosinophil count 0.2 10*3/uL 0.0-0.3 Automated [...] measurement in platelet poor plasma (mass/volume) - 06/02/18 13:46 Fibrin D-dimer FEU measurement in platelet [...] Serum or plasma aspartate aminotransferase measurement (enzymatic activity/volume) 30 U/L 5-34 Serum or plasma alanine aminotransferase measurement (enzymatic activity/volume) 37 U/L 0-55 Serum or plasma protein measurement (mass/volume) 7.6 g/dL 6.4-8.2 Serum or plasma albumin measurement (mass/volume) 4.0 g/dL 3.2-4.5 CALCIUM CORRECTED 9.6 mg/dL 8.5-10.1 Serum or plasma troponin i.cardiac measurement (mass/volume) - 06/02/18 13:46 Serum or plasma troponin i.cardiac measurement (mass/volume) < ng/mL <0.028 Complete urinalysis with reflex to culture - 06/02/18 15:06 Urine color determination YELLOW NRG Urine clarity determination CLEAR NRG Urine pH measurement by test strip 8 5-9 Specific gravity of urine by test strip 1.010 1.016-1.022 Urine protein assay by test strip, semi-quantitative NEGATIVE NEGATIVE Urine glucose detection by automated test strip NEGATIVE NEGATIVE Erythrocytes detection in urine sediment by light microscopy NEGATIVE NEGATIVE Urine ketones detection by automated test strip NEGATIVE NEGATIVE Urine nitrite detection by test strip NEGATIVE NEGATIVE Urine total bilirubin detection by test strip NEGATIVE NEGATIVE Urine urobilinogen measurement by automated test strip (mass/volume) NORMAL NORMAL Urine leukocyte esterase detection by dipstick NEGATIVE NEGATIVE Automated urine sediment erythrocyte count by microscopy (number/high power field) NONE NRG Automated urine sediment leukocyte count by microscopy (number/high power field) NONE NRG Bacteria detection in urine sediment by light microscopy NEGATIVE NRG Squamous epithelial cells detection in urine sediment by light microscopy RARE NRG Crystals detection in urine sediment by light microscopy NONE NRG Casts detection in urine sediment by light microscopy NONE NRG Mucus detection in urine sediment by light microscopy NEGATIVE NRG Complete urinalysis with reflex to culture NO NRG Methicillin resistant Staphylococcus aureus (MRSA) screening culture - 07/26/18 13:45 Methicillin resistant Staphylococcus aureus (MRSA) screening culture NEG NRG Whole blood basic metabolic panel - 07/26/18 14:20 Serum or plasma sodium measurement (moles/volume) 139 mmol/L 135-145 Serum or plasma potassium measurement (moles/volume) 3.9 mmol/L 3.6-5.0 Serum or plasma chloride measurement (moles/volume) 105 mmol/L 98-107 Carbon dioxide 25 mmol/L 21-32 Serum or plasma anion gap determination (moles/volume) 9 mmol/L 5-14 Serum or plasma urea nitrogen measurement (mass/volume) 13 mg/dL 7-18 Serum or plasma creatinine measurement (mass/volume) 1.01 mg/dL 0.60-1.30 Serum or plasma urea nitrogen/creatinine mass ratio 13 NRG Serum or plasma creatinine measurement with calculation of estimated glomerular filtration rate > NRG Serum or plasma glucose measurement (mass/volume) 80 mg/dL 70-105 Serum or plasma calcium measurement (mass/volume) 9.1 mg/dL 8.5-10.1 Radiology Report from [facility] on 10/30/2011 14:50:00 DIAGNOSTIC IMAGING REPORT [facility] - [address] [address] PHONE #: [phone] FAX #: [phone] Name: GAMA MATSON Loc: [facility] Radiology No: [id number] : 1970 Age: 41 Sex: M Status: REG CLI Unit No: [id number] Phys: Analisa Hodges MD Acct: [id number] Reason For Exam: EDEMA/LT LEG VENOUS Exam Date: 10/30/2011 EXAMS: CPT CODE: [id number] DOPPLER EXTR VENOUS LMTD 75714 REASON FOR EXAM: left lower extremity pain [...] or corrected the resident physician's interpretation. at 0357 RESIDENT: NAEEM CASTELLANO DO Reported and signed by: SHANIKA NAVARRO MD CC: Analisa Ha MD Technologist: CRISTHIAN MARQUEZ Transcribed Date/Time: 10/30/2011 (5674)Dairy Nutrition Consultant: MIKE Printed Date/Time: 10/30/2011 (3044) BATCH NO: N/A PAGE 1 Signed Report Radiology Report from [facility] on 12/20/2012 17:07:00 DIAGNOSTIC IMAGING REPORT [facility] - [address] [address] PHONE #: [phone] FAX #: [phone] Name: GAMA MATSON Loc: [facility] Radiology No: [id number] : 1970 Age: 42 Sex: M Status: REG CLI Unit No: [id number] Phys: Analisa Hodges MD Acct: [id number] Reason For Exam: LEG PAIN Exam Date: 12/20/2012 EXAMS: CPT CODE: [id number] MRI FEMUR LEFT W W/O 90697 TIME OF EXAM: 12/20/2012 12:30 PM REASON FOR EXAM: LEG PAIN . History of a lipoma that was previously excised in the upper left leg in 2004. COMPARISON: 07/23/2008 MRI of the left femur. TECHNIQUE: Multiplanar multisequence [id number] contrast enhanced MRI of the left femur [...] MD Technologist: JACKSON CARUSO Transcribed Date/Time: 12/20/2012 (8284)Dairy Nutrition Consultant: [email or web address] Printed Date/Time: 12/20/2012 (6292) BATCH NO: N/A PAGE 1 Signed Report Radiology Report from [facility] on 12/20/2012 17:08:00 DIAGNOSTIC IMAGING REPORT [facility] - [address] [address] PHONE #: [phone] FAX #: [phone] Name: HUYENGAMA OLVIN Loc: [facility] Radiology No: [id number] : 1970 Age: 42 Sex: M Status: REG I Unit No: [id number] Phys: Analisa Hodges MD Acct: [id number] Reason For Exam: LEG PAIN Exam Date: 12/20/2012 EXAMS: CPT CODE: [id number] MRI TIB/FIB LEFT W W/O 54800 REASON FOR EXAM: LEG PAIN . History of a lipoma that was previously excised in the upper left leg in 2004. TIME OF THE CURRENT EXAMINATION: 12/20/2012 12:30 PM COMPARISON: None TECHNIQUE: Multiplanar multisequence [id number] contrast enhanced MRI of the left tibia-fibula was performed. FINDINGS: A small amount of pretibial soft tissue swelling is seen along the medial aspect of the mid to distal tibia. There is no acute fracture or dislocation in the left tibia-fibula. No focal osseous lesions are seen. No [...] MD Technologist: JACKSON CARUSO Transcribed Date/Time: 12/20/2012 (170)Dairy Nutrition Consultant: MYRIAM Printed Date/Time: 12/20/2012 (7791) BATCH NO: N/A PAGE 1 Signed Report Encounters ACCT No. Visit Date/Time Discharge Status Pt. Type Provider Facility Loc./Unit Complaint [id number] 05/16/2018 07:49:00 05/16/2018 07:49:00 [facility] Outpatient THIEN ORTIZ [id number] 05/06/2017 21:48:00 05/06/2017 23:30:00 DIS Outpatient Jarred Fletcher [id number] 05/06/2017 22:17:02 Document Registration [id number] 12/20/2012 09:52:00 12/20/2012 09:52:00 DIS Outpatient Analisa Ha MD [facility] W.PEDRITO [id number] 10/30/2011 08:11:00 10/30/2011 08:11:00 DIS Outpatient Analisa Ha MD [facility] W.JUDITH [id number] 07/13/2018 13:00:00 07/13/2018 23:59:59 [facility] Outpatient ALENA ÁLVAREZ [facility] [facility] [id number] 05/11/2018 16:20:00 Document Registration [id number] 01/21/2018 10:20:00 Document Registration [id number] 12/29/2017 11:00:00 Document Registration [id number] 11/17/2017 16:20:00 Document Registration [id number] 2017 10:40:00 Document Registration [id number] 09/20/2017 11:20:00 Document Registration [id number] 09/14/2017 12:20:00 Document Registration [id number] 09/07/2017 10:20:00 Document Registration [id number] 07/21/2017 12:00:00 Document Registration [id number] 06/18/2017 13:00:00 Document Registration [id number] 05/12/2017 11:00:00 Document Registration [id number] 12/09/2014 10:05:00 12/09/2014 10:53:00 DIS Emergency CONNOR PAULSON MD [facility] ER [id number] 12/08/2014 20:41:00 12/09/2014 05:24:00 DIS Outpatient [address] COMMISSIONER [facility] SLEEP [id number] 11/12/2014 16:10:00 11/12/2014 23:59:59 CLS Outpatient EDUIN CARDONA CONGRESSIONAL REPRESENTATIVE [facility] RAD [id number] 11/07/2014 20:53:00 11/08/2014 06:06:00 DIS Outpatient EDUIN CARDONA CONGRESSIONAL REPRESENTATIVE [facility] SLEEP [id number] 10/11/2014 13:04:00 10/11/2014 23:59:59 CLS Outpatient GENIA MONTANEZ DO [facility] RAD [id number] 08/31/2014 16:06:00 08/31/2014 18:49:00 DIS [address] COMMISSIONER [facility] ER [id number] 08/24/2014 22:00:00 08/24/2014 23:52:[address] DIS [address] COMMISSIONER [facility] ER [id number] 08/18/2014 11:44:00 08/18/2014 14:10:00 DIS Emergency ALEXANDRIA GRIFFITH [facility] ER [id number] 07/19/2014 09:15:00 07/19/2014 23:59:59 CLS Outpatient [address] COMMISSIONER [facility] CARD [id number] 06/13/2014 08:38:00 06/13/2014 23:59:59 CLS Outpatient CARYN AVILES DO [facility] LAB [id number] 07/26/2018 14:12:00 07/26/2018 23:59:59 CLS Outpatient JOE NAVARRO MD [facility] LAB RESISTANT HYPERTENSION [id number] 07/26/2018 13:16:00 07/26/2018 14:16:00 DIS Outpatient FRANCISCO TRINIDAD MD [facility] PREOP LEFT KNEE MEDIAL MENISCUS TEAR [id number] 07/13/2018 13:13:00 07/13/2018 23:59:59 CLS Outpatient SAJI BURNETT FACC, RANCHO INGRAM CCDS [facility] LAB I10,R42 [id number] 06/02/2018 13:36:00 06/02/2018 17:32:00 DIS Emergency CHEMA BURNETT, DAVID Lyn [facility] ER HIGH BP; L ARM NUMBNESS [id number] 05/05/2018 11:49:00 05/05/2018 23:59:59 CLS Outpatient ALENA ÁLVAREZ MD [facility] LAB I10 [id number] 05/04/2018 12:07:00 05/04/2018 23:59:59 CLS Outpatient ALENA ÁLVAREZ MD [facility] LAB HTN [id number] 04/12/2018 18:11:00 04/12/2018 19:08:00 DIS Emergency KRYSTEN YAÑEZ [facility] ER LEFT LEG PAIN [id number] 02/10/2018 17:39:00 02/10/2018 19:05:00 DIS Emergency SAI YAÑEZIS [facility] ER COUGH,DIARRHEA [id number] 02/04/2018 13:37:00 02/04/2018 14:20:00 DIS Emergency [address] COMMISSIONER [facility] ER RUNNY NOSE;SORE THROAT [id number] 07/08/2017 20:28:00 07/08/2017 21:33:00 DIS Emergency [address] COMMISSIONER [facility] ER EAR INFECTION/RESP INFECTION [id number] 05/14/2017 13:48:00 05/14/2017 23:59:59 CLS Outpatient JESUSPAMELA DOWNS MD [facility] RAD R05 [id number] 03/09/2017 09:15:00 03/09/2017 23:59:[address] COMMISSIONER [facility] LAB I51.4,I47.2 [id number] 02/19/2017 12:01:00 02/19/2017 23:59:59 CLS Outpatient KAYLA KOENIG [facility] LAB I10 I49.5 R00.2 I47.2 E66.01 [id number] 02/19/2017 10:08:00 02/19/2017 23:59:59 CLS Outpatient SAJI BURNETT FACC, ALI FACP CCDS [facility] CARD I47.2 NSVT [id number] 02/04/2017 07:26:00 02/04/2017 23:59:59 CLS Outpatient SAJI BURNETT FACC, ALI FACP CCDS [facility] CARD I47.2 NSVT [id number] 12/17/2016 11:54:00 12/17/2016 23:59:59 CLS Outpatient SAJI BURNETT FACC, ALI FACP CCDS [facility] RAD 147.2 Z95.0 [id number] 11/13/2016 10:56:00 11/13/2016 23:59:59 CLS Outpatient FRITZ HELMS MD [facility] RAD TUMOR OF SOFT TISSUE [id number] 06/19/2016 20:19:00 06/19/2016 23:17:00 DIS Emergency ALEXANDRIA GRIFFITH [facility] ER POST OP/L LEG INCISION BLEEDING [id number] 06/05/2016 17:18:00 06/05/2016 18:14:00 DIS Emergency PHAM BLACKMON APRN [facility] ER LEFT LEG WOUND OPENED [id number] 05/01/2016 09:19:00 05/01/2016 23:59:59 CLS Outpatient SAJI BURNETT FACAnalisa, ALI FACP CCDS [facility] LAB HTN,PALPITATIONS,PSVT,MELI [id number] 03/25/2016 06:15:00 03/25/2016 11:23:00 DIS Outpatient FRANCISCO TRINIDAD MD [facility] RIGHT SHOULDER PRIMARY OA [id number] 03/18/2016 09:16:00 03/18/2016 11:00:00 DIS Outpatient FRANCISCO TRINIDAD MD [facility] PREOP RIGHT SHOULDER PRIMARY OA [id number] 02/20/2016 07:39:00 02/21/2016 13:30:00 DIS Outpatient Laurence PANG MD [facility] CATH SEVERE DOMINICK [id number] 10/02/2015 10:15:00 10/02/2015 14:55:00 DIS Outpatient FRANCISCO TRINIDAD MD [facility] RIGHT LABRAL TEAR [id number] 09/26/2015 10:59:00 09/26/2015 11:26:00 DIS Outpatient FRANCISCO TRINIDAD MD [facility] PREOP RIGHT LABRAL TEAR [id number] 05/22/2015 09:00:00 05/22/2015 15:00:00 DIS Outpatient FRANCISCO TRINIDAD MD [facility] TORN ROTATOR RAKESH [id number] 05/17/2015 10:19:00 05/17/2015 11:48:00 DIS Outpatient FRANCISCO TRINIDAD MD [facility] PREOP TORN ROTATOR RAKESH [id number] 04/16/2015 13:07:00 04/16/2015 23:59:59 CLS Outpatient GENIA MONTANEZ DO [facility] RAD LT THIGH MASS AND PAIN [id number] 03/12/2015 08:56:00 03/12/2015 23:59:59 CLS Outpatient SAJI BURNETT FACC, ALI FACP CCDS [facility] CATH CAD,HLP,TACHYCARDIA,PALPITATIONS [id number] 02/14/2015 13:02:00 02/14/2015 14:49:00 DIS Emergency CONNOR PAULSON MD [facility] ER CHEST PAIN [id number] 08/03/2018 11:30:00 PEN Preadmit FRANCISCO TRINIDAD MD [facility] LEFT KNEE MEDIAL MENISCUS TEAR [id number] 03/01/2015 14:26:00 Document Registration [id number] 12/09/2014 10:05:00 Document Registration [id number] 12/08/2014 20:41:00 Document Registration [id number] 11/07/2014 20:53:00 Document Registration
[2018-08-03] MEDS ORDERED: fentaNYL INJECTION 100 MCG/2 ML AMP IVP ONE (12:15)
[2018-08-03] MEDS ORDERED: ONDANSETRON 4 MG/2 ML (SDV) Z0FRAN IVP PRN (12:15)
[2018-08-03] MEDS ORDERED: morphine INJ 10 MG/ML 1ML (SYR OR VIAL) IVP ONE (12:15)
[2018-08-03] MEDS ORDERED: MEPERIDINE (DEMEROL) INJ 50 MG/ML IVP ONE (12:15)
[2018-08-03] MEDS ORDERED: HYDR-34 PO (13:21)
--- NOTE | 2018-08-03 14:17 | Physical Therapy Ortho Eval ---
PT Orthopedic Evaluation Type of Surgery Knee Scope left side, WBAT Prior Level of Function Current Living Status: Significant Other Locomotion (Upon Admit): Independent Established Durable Medical Eq: Straight Cane Subjective Subjective Patient in bed pre tx, agrees to PT, has 7/10 pain in left knee. Entry Into Home: Level Entry Motor Control Motor Control: Motor Control WNL ROM left knee flexion 45 degrees, extension +2 degrees Transfer Transfers (B, C, W/C) (FIM): 5 Gait Gait Assistive Device: Cane Single Point Left Lower Extremity: Left Weight Bearing Status LLE: Weight Bearing/Tolerated Gait (FIM): 2 Distance: 50' Gait Level of Assist: 5 Summary/Comments Patient ambulated 50' with a single point cane with SBA. He ambulates with a limp, decreased stance time on the left leg. Patient also went up and down 1 step using a single point cane with SBA and cues for foot placement. Treatment Rendered Treatment: Therapeutic Exercises, Gait Train, Step Train Exercise Instruction: Quad Sets, Heel Slides, Ankle Pumps Assessment/Goals Goal Time Frame: 1 Visit Understands HEP: Yes Safe Ambulation: Yes Plan Treatment Plan: Discharge PT/Family Agrees to Plan: Yes Time Time In: 1350 Time Out: 1402 Total Billed Treatment Time: 12 Billed Treatment Time 1 visit ALVA Mason' KASSIDY QUINTEROS PT Aug 03, 2018 14:17
--- NOTE | 2018-08-03 16:49 | OPERATIVE REPORT ---
DATE OF SERVICE: 08/03/2018 PREOPERATIVE DIAGNOSES: 1. Left knee medial meniscus tear. 2. Left knee chondromalacia of the medial femoral condyle. 3. Left knee chondromalacia of the medial tibial plateau. POSTOPERATIVE DIAGNOSES: 1. Left knee medial meniscus tear. 2. Left knee chondromalacia of the medial femoral condyle. 3. Left knee chondromalacia of the medial tibial plateau. PROCEDURES: 1. Left knee arthroscopic partial medial meniscectomy. 2. Left knee arthroscopic chondroplasty medial femoral condyle. 3. Left knee arthroscopic chondroplasty of the medial tibial plateau. SURGEON: Vimal Trinidad MD. DEPUTY COURT: Jeremy Andrade, who assisted throughout the procedure and closed the incisions. ANESTHESIA: General endotracheal by Jeremy Manning CRNA. TOURNIQUET TIME: Not applicable. ESTIMATED BLOOD LOSS: Minimal. DRAINS: None. COMPLICATIONS: None. POSTOPERATIVE PLAN: Routine arthroscopy protocol. The patient was transferred to the recovery room awake and in stable condition. STATEMENT OF MEDICAL NECESSITY: The patient is a 47-year-old gentleman with complaints of left medial knee pain, catching, locking and swelling. He is tender along his medial joint line and pain medially with Lamin. It is felt that he likely had a medial meniscus tear. He also had chondromalacia noted of the medial compartment due to functional impairment and failure to improve with conservative measures, the patient elected to proceed with surgical intervention. Examination under anesthesia revealed range of motion of 0/0/120. No varus valgus laxity. Negative anterior drawer, negative posterior drawer, negative pivot shift. ARTHROSCOPIC FINDINGS: The patella and trochlea demonstrated no gross chondral abnormalities. The medial and lateral gutters were clear. The ACL and PCL were intact. Lateral compartment demonstrated no meniscal or chondral pathology. The medial compartment demonstrated grade II chondral flaps. The central portion of the tibial plateau and femoral condyle in 10 x 10 area with a parrot beak tear of the posterior horn and body of the medial meniscus involving approximately 1/3 of the posterior horn and body. DESCRIPTION OF PROCEDURE: After risks and benefits of procedure were discussed and questions were answered, an informed consent was signed and placed on the chart. The operative site was confirmed in the preoperative holding area initialed by the surgeon. The patient was then transferred to the operating room. After adequate level of general endotracheal anesthetic were obtained, a timeout was called, confirming the operative site. An examination under anesthesia was performed with the above findings noted. The left lower extremity was prepped and draped in the usual sterile fashion. The knee joint was injected with 60 mL of fluid. Standard inferolateral portals were placed with the arthroscope under direct visualization, an inferomedial portal was created. The menisci and cruciates were carefully probed with the above findings noted. The unstable chondral flaps of the medial femoral condyle were debrided with a shaver back to a stable edge. The unstable chondral flaps of the medial tibial plateau were debrided with a shaver back to a stable edge. The posterior horn and body of the medial meniscus were debrided with a biter and shaver. I removed approximately 1/3 of the posterior horn and body with ease. This was carefully probed with no further tearing or instability noted. The knee was copiously irrigated and portal sites were closed with 4-0 nylon in standard fashion. The knee was injected with Duramorph. Portal sites were infiltrated with plain Marcaine. A soft dressing was applied and the patient was transported to the recovery room awake and in stable condition. Job ID: [id number] DocumentID: [id number] Dictated Date: 08/03/2018 12:00:48 Supplier Quality Date: 08/03/2018 16:48:07 Dictated By: VIMAL TRINIDAD MD
== END 2018-08-03 14:05 | disposition home or self-care (01) ==
LOC: SDC 08:28
PROVIDERS: ATTEND Orthopaedic Surgery
DX: M23.322 Other meniscus derangements, posterior horn of medial meniscus, left knee (principal); M94.262 Chondromalacia, left knee; E78.5 Hyperlipidemia, unspecified; I10 Essential (primary) hypertension; I25.10 Atherosclerotic heart disease of native coronary artery without angina pectoris; F32.9 Major depressive disorder, single episode, unspecified; G47.30 Sleep apnea, unspecified; F43.10 Post-traumatic stress disorder, unspecified; G44.209 Tension-type headache, unspecified, not intractable; I34.1 Nonrheumatic mitral (valve) prolapse; I42.9 Cardiomyopathy, unspecified; I47.1 Supraventricular tachycardia; Z95.0 Presence of cardiac pacemaker; Z79.899 Other long term (current) drug therapy; Z88.0 Allergy status to penicillin; F41.9 Anxiety disorder, unspecified; Z87.891 Personal history of nicotine dependence

== ENCOUNTER 2018-08-03 20:01 | Emergency (ER) | payer MEDICAID ==
[~2018-08-03] VITALS: Ht 170.2 cm; Wt 139.7 kg
--- OUTSIDE RECORDS SUMMARY | 2018-08-03 20:09 | XMS REPORT | Encounter Summary ---
Author Author [facility] Organization [facility] Address Unknown Phone Unavailable Care Team Providers Care Loom Doffer Name Role Phone Yana Chawdick MD 21 Shreyas Puentes MD 3 [place] Hennessy MD PCP Reason for Referral * Consult, Test & Treat (Routine) Referred By Contact Referred To Contact Status Reason Specialty Diagnoses / Procedures Roger Blue MD [address] [place] [address] New Request Procedures REQUEST FOR CARDIOLOGY APPOINTMENT * Consult, Test & Treat (Routine) Referred By Contact Referred To Contact Status Reason Specialty Diagnoses / Procedures Roger Bleu MD [address] [place] [address] [facility] [address] [place], [place] [id number] New Request Specialty Services Transplant Diagnoses Required Surgery Resistant hypertension Reason for Visit * Reason Comments Cardiac Eval History of hypertension Encounter Details Care Team Description Date Type Department Roger Blue MD [address] [place] [address] [phone] Cardiac Eval (History of hypertension) 07/13/2018 Office Visit The [address] [address] Social History Date Tobacco Use Types Packs/Day [...] [facility] concerning for a stroke [...] in any large quantities. He lives in [facility] with his girlfriend and has [...] Myocarditis (HCC) 02/26/2017 NSVT (nonsustained ventricular tachycardia) ([facility]) 02/26/2017 Cardiac device in situ 01/14/2017 Sinus node dysfunction ([facility]) 11/02/2016 Dr. Valdez S/p PPM implant- Advisa 02/20/16 PSVT (paroxysmal supraventricular tachycardia) ([facility]) 11/02/2016 Resistant hypertension 11/02/2016 MELI (obstructive sleep [...] minutes with the patient today in a [id number] discussion about his risks for hypertension and [...] [facility] eGFR [facility] [place] Anion Gap 9 [facility] Specimen Blood - Blood Narrative Performed At Performing Organization Address City/State/Zipcode Phone Number MAIN LAB [address] [place] [address] documented in this encounter Visit Diagnoses Diagnosis Resistant hypertension - Primary documented in this encounter
--- OUTSIDE RECORDS SUMMARY | 2018-08-03 20:09 | XMS REPORT | Encounter Summary ---
Author Author [facility] Organization [facility] Address Unknown Phone Unavailable Care Team Providers Care Ticket Seller Name Role Phone Yana Chadwick MD 21 Shreyas Puentes MD 3 [place] Hennessy MD PCP Reason for Visit * Reason Comments Heart Problem F/U Myocarditist Encounter Details Care Team Description Date Type Department Leander Tovar MD [address] [facility] L[address] [place] [id number] Breathing problem (Primary Dx); MELI (obstructive sleep apnea); PSVT (paroxysmal supraventricular tachycardia) (HCC); NSVT (nonsustained ventricular tachycardia) (HCC); Morbid obesity (HCC); Chronic idiopathic myocarditis; Chronic fatigue and immune dysfunction syndrome (HCC) 08/01/2018 Office Visit The [facility] [address] [address] Social History Date Tobacco Use [...] does have some exercise limitations due to chromosomal disorders counselor staci leg pain. He does swim on [...] as of yet. He is otherwise w [facility] complaints. Medical History: Diagnosis Date Anxiety [...] myocarditis. I would obviously defer to his systems spec, but I think that would be my [...] for him to dominique t with a quality technician fiberglass locally. Otherwise, follow-up in a weight management [...] weight loss efforts. Consider referral to local quality technician fiberglass. 5. Future follow-up on an as-needed basis. I spent 70% of this encounter in face to face time discussing the management marquita n as above with the patient. If there are any additional questions please do no t hesitate to contact the [facility] at . Leander Tovar MD, [facility] Design Engineer Director [facility] the [facility] Division of Pulmonary & Critical Care Medicine [address] [place] [address] (This documentation was created with [employer] Dictation software, and while some e diting [...]
--- OUTSIDE RECORDS SUMMARY | 2018-08-03 20:09 | XMS REPORT | Encounter Summary ---
Author Author [facility] Organization [facility] Address Unknown Phone Unavailable Care Team Providers Care Baggage Porter Head Name Role Phone Yana Chadwick MD 21 Shreyas Puentes MD 3 [place] Hennessy MD PCP Reason for Visit * Reason Comments Pain eval pain pump Pain Encounter Details Care Team Description Date Type Department Chapin Soto MD [address] [place] [address] [phone] Complex regional pain syndrome type 1 of left lower extremity (Primary Dx); Neuropathic pain 07/28/2018 Office Visit The [facility] [address] [address] Social History Date Tobacco Use Types Packs/Day [...] How to reach me: Please send a MeetingSprout message to the [facility] Center or leave a voicemail for my nurse, Juvenal, at [phone]. How to get a medication refill: Please use the MeetingSprout Refill request or cont act your pharmacy directly to request medication refills. Please allow 72 busine ss hours for request to be completed. How to receive your test results: If you have signed up for MeetingSprout, you will receive your test results and messages from me this way. Otherwise, you will get a phone call or letter. If you are expecting results and have not heard from my office within 2 weeks of your testing, please send a MeetingSprout message or call my office. Scheduling: Our scheduling phone number is [phone]. Appointment Reminders on your cell phone: Make sure we have your cell phone n ze, and Text [facility] to [phone]. Support for many chronic illnesses is available through [facility]: [email or web address] or [phone]. For questions on nights, weekends or holidays, call the Orthopedic Rn at , and ask for the doctor collections director for Anesthesia Pain Management. Again, thank you [...]
--- OUTSIDE RECORDS SUMMARY | 2018-08-03 20:09 | XMS REPORT | Encounter Summary ---
Author Author [facility] Organization [facility] Address Unknown Phone Unavailable Care Team Providers Care Call Manager Name Role Phone Yana Chadwick MD 21 Shreyas Puentes MD 3 [place] Hennessy MD PCP Reason for Visit * Reason Comments Pain Encounter Details Care Team Description Date [place] [address] [place], [place] [id number] History of lipoma (Primary Dx); Pain of left thigh; Pain of left lower leg; Morbid obesity (HCC) 07/18/2018 Office Visit [facility] [address] [place], [place] [address] Social History Date Tobacco Use Types Packs/Day [...] How to reach me: Please send a PlayRaven message to the [facility] or leave a voicemail Amanda Plummer at [phone] How to get a medication refill: Please use the [employer] Refill request or cont act your pharmacy directly to request medication refills. How to receive your test results: If you have signed up for [employer], you will receive your test results and messages from me this way. Otherwise, you will get a phone call or letter. If you are expecting results and have not heard from my office within 2 weeks of your testing, please send a PlayRaven message or call my office. Scheduling: Our scheduling phone number if you are a [facility] Center patient is [phone]. If you are a cancer center patient, please call the cancer center you go to for scheduling. Appointment Reminders on your cell phone: Make sure we have your cell phone n umber, and Text [facility] to [phone]. Support for many chronic illnesses is available through [facility]: [email or web address] or [phone]. For questions on nights, weekends or holidays, call the electronic page makeup system operator at , and ask for the doctor cotton wringer for Physical Medicine and Rehab. documented in this encounter Progress Notes * Lexi Amezcua MD - 07/18/2018 9:30 AM CDT ONCOLOGY REHAB HISTORY AND PHYSICAL Chief Complaint Patient presents with Left Leg - Pain Subjective HISTORY OF PRESENT ILLNESS: Mr. Velásquez is a pleasant 47 y.o. male with a history of LLE lipoma s/p resection x 4 in [place] with the last in 2015 who is seen on 07/18/2018 at the [facility] for follow up evaluation and [...] LLE lipoma s/p re section x4 in [place] with the last in 2015. History and [...] for left knee scope with ortho in [place], [place] Plan: 1. Medications: Can continue current [...]
--- OUTSIDE RECORDS SUMMARY | 2018-08-03 20:09 | XMS REPORT | Clinical Summary ---
Author Author [facility] Organization [facility] Address Unknown Phone Unavailable Care Team Providers Care Sanitary Plumber Name Role Phone Yana Chadwick MD 21 Shreyas Puentes MD 3 Eden Hennessy MD PCP Source Comments Some departments are not documenting in the electronic medical record. If you d o not see the information that you expected, contact Release of Information in [facility] [employer] Information Management department at [phone] for further assistan ce in locating additional records.[facility] Allergies Comments Active Allergy Reactions Severity Noted [...] Mathis RN Chest Pain (to see local senior devops engineer) 06/08/2018 Telephone Cardiology Saul Altamirano MD Medication [...] Area Manufactur er Pacemaker Pacemaker [id number] / [id number] / [employer]-02/20/2016 Implanted: Qty: 1 on 02/20/2016 by Yumiko Pierre MD Procedures Comments Procedure Name Priority Date/Time Associated Diagnosis BASIC METABOLIC PANEL Routine 07/26/2018 Resistant hypertension [place] NERVE CONDUCTION Routine 05/27/2018 History of lipoma STUDIES 3-4 STUDIES 2:45 PM CDT Sarcoma (HCC) Pain of left lower leg [place] NEEDLE EMG EA EXTREMTY Routine 05/27/2018 History [...] [facility] MAIN LAB eGFR [facility] MAIN [facility] Portuguese Anion Gap 9 [facility] MAIN LAB Specimen Blood - Blood Narrative Performed At Performing Organization Address City/State/Zipcode Phone Number MAIN LAB [address] [place] [address] * SPINE EMG PROCEDURE (05/27/2018 2:45 PM [...] the knee, compatible with CPPD. Approved by Franicsco Campbell M.D. on 05/26/2018 9:42 AM By [...] Urine Narrative Performed At Performing Organization Address City/[facility]/Zipcode Phone Number OTHER OUTSIDE LAB * CORTISOL,SALIVA (05/18/2018) Only the most recent of 2 results within the time period is included. Cortisol, 0.018 0.010 - 0.090 MAIN LAB Sample 2 Specimen Saliva - Salivette Swab Narrative Performed At Performing Organization Address [facility] Phone Number MAIN LAB [address] [place] [address] * 25-OH VITAMIN D (D2 + D3) (05/13/2018 9:13 AM CDT) Vitamin 19.7 (L) 30 - 80 NG/ML [facility] MAIN LAB D(25-OH)Total Specimen Blood Performing Organization Address [facility]/Zipcode Phone Number MAIN LAB [address] [place] [address] * THYROID STIMULATING HORMONE-TSH (05/04/2018) TSH 1.06 MAIN LAB Specimen Blood - Blood Performing Organization Address [facility] Phone Number MAIN LAB [address] [place] [address] from Last 3 Months Insurance Type Payer Benefit Subscriber ID Effective Phone Address Plan / Dates Group Medicaid [place] xxxxxxxxxxx 2009- [facility] HEALTH Advance Directives Patient Supervisor Special Effects Explanation Type Date Recorded Advance Directive/DPOA
--- OUTSIDE RECORDS SUMMARY | 2018-08-03 20:09 | XMS REPORT | Encounter Summary ---
Author Author [facility] Organization [facility] Address Unknown Phone Unavailable Care Team Providers Care Harbor Engineer Name Role Phone Yana Chadwick MD 21 Shreyas Puentes MD 3 Eden Hennessy MD PCP Reason for Visit * Reason Comments Lab Results Encounter Details Care Team Description Date Type Department Cat Valenzuela RN Lab Results 07/26/2018 Documentation The [address] [place] [address] Social History Date Tobacco Use Types Packs/Day [...] [facility] MAIN LAB eGFR [facility] MAIN LAB Marshallese Anion Gap 9 [facility] MAIN LAB Specimen Blood - Blood Narrative Performed At Performing Organization Address City/State/Zipcode Phone Number [facility] MAIN LAB [address] [place] [address] documented in this encounter Visit Diagnoses Diagnosis Resistant hypertension documented in this encounter
--- OUTSIDE RECORDS SUMMARY | 2018-08-03 20:10 | XMS REPORT | Encounter Summary ---
Author Author [facility] Organization [facility] Address Unknown Phone Unavailable Care Team Providers Care Solution Director Name Role Phone Yana Chadwick MD 21 Shreyas Puentes MD 3 Eden Hennessy MD PCP Reason for Visit * Reason Comments Records Request Encounter Details Care Team Description Date Type Department Cat Valenzuela RN Records Request 06/03/2018 Documentation The [address] [place] [address] Social History Date Tobacco Use Types Packs/Day [...]
--- OUTSIDE RECORDS SUMMARY | 2018-08-03 20:10 | XMS REPORT | Encounter Summary ---
Author Author [facility] Organization [facility] Address Unknown Phone Unavailable Care Team Providers Care Fulfillment Coordinator Name Role Phone Yana Chadwick MD 21 Shreyas Puentes MD 3 Eden Hennessy MD PCP Reason for Visit * Reason Comments Chest Pain to see local robotic welder Encounter Details Care Team Description Date Type Department Shanita Mathis RN Chest Pain (to see local robotic welder) 06/08/2018 Telephone The [facility] [address] [facility] [place] [address] Social History Date Tobacco Use Types Packs/Day [...] who recommend pt be evaluated by local robotic welder for further recommendations. Returned call to pt [...] RN - 06/08/2018 10:20 AM CDT Received Pay-Mehart message pt reporting chest pain, BP variability. Placed call to pt to discuss. He states his BP continues to be high, highest BP was 201/119 and he went to [facility] ER due to concerns for stroke. He [...] for the last two days right at [facility] site. He reports pain comes and goes. [...] Prescription Question I need refill orders losartan [facility] in [facility] thank you documented in this encounter Plan of Treatment Not on filedocumented as of this encounter Visit Diagnoses Not on filedocumented in this encounter
--- OUTSIDE RECORDS SUMMARY | 2018-08-03 20:10 | XMS REPORT | Encounter Summary ---
Author Author [facility] Organization [facility] Address Unknown Phone Unavailable Care Team Providers Care Power Plant Operator Name Role Phone Yana Chadwick MD 21 Shreyas Puentes MD 3 Eden Hennessy MD PCP Reason for Referral * Consult, Test & Treat Referred By Contact Referred To Contact Status Reason Specialty Diagnoses / Procedures Lois Sosa MD [address] [facility] [address] [place] [address] Rb - Sleep Disordr Ctr [address] [facility] [address] [place] [address] New Request Specialty Services Sleep Center Diagnoses [...] Diagnoses / Procedures Leander Tovar MD [address] [facility] Ortho/Med Pavilion [address] [place] [address] [facility] [address] [place] [address] New Request Specialty Services Pulmonology Diagnoses Required CPAP (continuous positive airway pressure) dependence SANTIAGO (obstructive sleep apnea) Encounter Details Care Team Description Date Type Department Leander Tovar MD [address] Ortho/Med Pavilion [address] [place] [address] Lois Sosa MD [address] [place] [address] SANTIAGO (obstructive sleep apnea) (Primary Dx); Morbid obesity (HCC); Hypersomnia 06/29/2018 Office Visit The [facility] [address] [facility] [address] [place] [address] Social History Date Tobacco Use [...] a study with financial assistance from [facility]. These arrangements are made by the patient financial services office and are don e on a case by case basis. We must have the approval from financial services be fore we can schedule your sleep study. Please contact Aaronuyen Milton in the business office at [phone] to make payme nt arrangements. Ms. Rose will inform us when the proper arrangements have be en made at which time we will contact you to schedule your sleep study. Thank you. [facility] [address] [place] [address] documented in this encounter Progress Notes * [...] moved to a new house in the [facility] and and is gotten permission to start the machine. He said he got the machine through some assist ance program to via [employer]. He said he has gained nearly 70 [...]
--- OUTSIDE RECORDS SUMMARY | 2018-08-03 20:10 | XMS REPORT | Encounter Summary ---
Author Author [facility] Organization [facility] Address Unknown Phone Unavailable Care Team Providers Care Grating Machine Operator Name Role Phone Yana Chadwick MD 21 Shreyas Puentes MD 3 Eden Hennessy MD PCP Reason for Visit * Reason Comments Migraine come and go Encounter Details Care Team Description Date Type Department Geoff Spivey, DO [address] [facility] Comp Spine Ctr [place], [place] [id number] MELI (obstructive sleep apnea) (Primary Dx); Chronic daily headache; Morbid obesity (HCC); Left leg numbness 07/08/2018 Office Visit [facility] [address] [phone] Social History Date Tobacco Use Types Packs/Day [...] PM CDT Date of Service: 07/08/2018 Subjective: Trnet Velásquez . is a 47 y.o. male. [...] or may not be MRI compatible. 7. Bvec-[id number] analgesics for as needed pain 8. RTC with me in 3 to 4 months. Call with side effects or complaints/changes Today I spent approximately 40 minutes with Trent. More than 50% was spent dir ectly [id number] on counseling, answering questions and discussion/education. documented in this encounter Plan of Treatment Not on filedocumented as of this encounter Visit Diagnoses Diagnosis MELI (obstructive sleep apnea) - Primary Obstructive sleep apnea (adult) (pediatric) Chronic daily headache Headache Morbid obesity (HCC) Morbid obesity Left leg numbness Disturbance of skin sensation documented in this encounter
--- OUTSIDE RECORDS SUMMARY | 2018-08-03 20:10 | XMS REPORT | Encounter Summary ---
Author Author [facility] Organization [facility] Address Unknown Phone Unavailable Care Team Providers Care Human Resources Operations Specialist Name Role Phone Yana Chadwick MD 21 Shreyas Puentes MD 3 Eden Hennessy MD PCP Reason for Visit * Reason Comments Medication Refill Encounter Details Care Team Description Date Type Department Saul Altamirano MD [address] [address] [phone] Medication Refill 06/06/2018 Refill The [facility] [address] [address] Social History Date Tobacco Use Types Packs/Day [...]
--- OUTSIDE RECORDS SUMMARY | 2018-08-03 20:10 | XMS REPORT | Encounter Summary ---
Author Author [facility] Organization [facility] Address Unknown Phone Unavailable Care Team Providers Care Educational Technician Name Role Phone Yana Chadwick MD 21 Shreyas Puentes MD 3 Eden Hennessy MD PCP Encounter Details Care Team Description Date Type Department Iwona Lira RN Resistant hypertension 05/30/2018 Orders Only The [facility] [address] [facility] 100 [place] [address] Social History Date Tobacco Use [...] Swab Narrative Performed At Performing Organization Address [facility] Phone Number MAIN LAB [address] [place] [address] * CORTISOL,SALIVA (05/17/2018 11:00 PM CDT) Cortisol, 0.054 0.010 - 0.090 MAIN LAB Sample 1 Specimen Saliva - Salivette Swab Narrative Performed At Performing Organization Address [facility] Phone Number [facility] [address] [place] [address] documented in this encounter Visit Diagnoses Diagnosis Resistant hypertension documented in this encounter
--- OUTSIDE RECORDS SUMMARY | 2018-08-03 20:10 | XMS REPORT | Encounter Summary ---
Author Author [facility] Organization [facility] Address Unknown Phone Unavailable Care Team Providers Care Paper Baler Name Role Phone Yana Chadwick MD 21 Shreyas Puentes MD 3 Eden Hennessy MD PCP Reason for Visit * Reason Comments Pain Encounter Details Care Team Description Date [place] [address] [place], [place] [id number] Pain of left lower leg (Primary Dx); Sarcoma (HCC); History of lipoma; Pain of left thigh 05/30/2018 Office Visit [facility] [address] [place], [place] [address] Social History Date Tobacco Use Types Packs/Day [...] LLE lipoma s/p resection x 4 in [place] with the last in 2015 who is seen on 05/30/2018 at the [facility] for follow up evaluation and [...] LLE lipoma s/p re section x4 in [place] with the last in 2015. History and [...] but discussed that we do not do penitentiary opioid mgmt at the spine center. We [...]
--- OUTSIDE RECORDS SUMMARY | 2018-08-03 20:10 | XMS REPORT | Encounter Summary ---
Author Author [facility] Organization [facility] Address Unknown Phone Unavailable Care Team Providers Care Offc Spec Name Role Phone Yana Chadwick MD 21 Shreyas Puentes MD 3 Eden Hennessy MD PCP Encounter Details Care Team Description Date Type Department Saul Altamirano MD 4000 [facility] [place] [address] [phone] 07/12/2018 [facility] Encounter Remote Device Check [phone] Social History Date Tobacco Use Types Packs/Day [...]
--- OUTSIDE RECORDS SUMMARY | 2018-08-03 20:10 | XMS REPORT | Encounter Summary ---
Author Author [facility] Organization [facility] Address Unknown Phone Unavailable Care Team Providers Care Marketing Project Specialist Name Role Phone Yana Chadwick MD 21 Shreyas Puentes MD 3 Eden Hennessy MD PCP Reason for Referral * Pain Authorization (Routine) Referred By Contact Referred To Contact Status Reason Specialty Diagnoses / [place] [address] [employer] [address] [place] [address] Geoff Spivey DO [address] [facility] [place] [address] Closed Neurology Diagnoses History of lipoma Sarcoma (HCC) Pain of left lower leg P rocedures SPINE EMG PROCEDURE Reason for Visit * Reason Comments Pain * Pain Authorization (Routine) Referred By Contact Referred To Contact Status Reason Specialty Diagnoses / [place] [address] [employer] [address] [place] [address] Geoff Spivey DO [address] [facility] [place] [address] Closed Neurology Diagnoses History of lipoma Sarcoma (HCC) Pain of left lower leg P rocedures SPINE EMG PROCEDURE Encounter Details Care Team Description Date Type Department Geoff Spivey DO [address] [facility] [place] [address] [phone] History of lipoma; Sarcoma (HCC); Pain of left lower leg 05/27/2018 Procedure visit The [facility] [address] [address] Social History Date Tobacco Use Types Packs/Day [...]
--- OUTSIDE RECORDS SUMMARY | 2018-08-03 20:11 | XMS REPORT | Encounter Summary ---
Author Author [facility] Organization [facility] Address Unknown Phone Unavailable Care Team Providers Care Rpg Programmer Analyst Name Role Phone Yana Chadwick MD 21 Shreyas Puentes MD 3 Eden Hennessy MD PCP Reason for Visit * Reason Comments Lab Results Encounter Details Care Team Description Date Type Department Cat Sunshine RN Lab Results 05/05/2018 Documentation The [address] [place] [address] Social History Date Tobacco Use Types Packs/Day [...] Specimen Blood - Blood Performing Organization Address City/[facility] Phone Number MAIN LAB [address] [place] [phone] * BASIC METABOLIC PANEL (05/04/2018) Sodium 130 KU MAIN LAB Potassium 3.7 K[facility] MAIN LAB Chloride 100 K[facility] MAIN LAB CO2 25 [facility] MAIN LAB Blood Urea 16 K[facility] MAIN LAB Nitrogen Creatinine 1.32 K[facility] MAIN LAB Glucose 139 K[facility] MAIN LAB Calcium 9.9 KU MAIN LAB eGFR Non 59 (L) >60 K[facility] MAIN LAB eGFR KU MAIN LAB Guyanese Anion Gap 13 KU MAIN LAB Specimen Blood - Blood Narrative Performed At Performing Organization Address City/[facility] Phone Number Cardio control MAIN LAB [address] [place] [address] documented in this encounter Visit Diagnoses Diagnosis Resistant hypertension documented in this encounter
--- OUTSIDE RECORDS SUMMARY | 2018-08-03 20:11 | XMS REPORT | Encounter Summary ---
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
--- OUTSIDE RECORDS SUMMARY | 2018-08-03 20:11 | XMS REPORT | Encounter Summary ---
Author Author [facility] Organization [facility] Address Unknown Phone Unavailable Care Team Providers Care Director Of Business Services Name Role Phone Yana Chadwick MD 21 Shreyas Puentes MD 3 Eden Hennessy MD PCP Reason for Visit * Reason Comments Lab Results Encounter Details Care Team Description Date Type Department Cat Valenzuela RN Lab Results 05/12/2018 Telephone The [address] [address] Social History Date Tobacco Use Types Packs/Day [...] - 05/12/2018 1:25 PM CDT Routed to [facility] for review. documented in this encounter Plan [...] MAIN LAB eGFR 92 KU MAIN LAB Honduran Anion Gap KU MAIN LAB Specimen Blood - Blood Narrative Performed At MAIN LAB Dr. Blue, repeat labs for review.Adjusted BP meds approximately 10 days ago.Creat bumped previously to 1.32 on 05/04.Wanted recheck in a couple weeks.Patient already went to lab - Cr now 1.10.Thanks, [facility] Organization Address City/State/Zipcode Phone Number MAIN LAB [address] [place] [address] documented in this encounter Visit Diagnoses Diagnosis Resistant hypertension documented in this encounter
--- OUTSIDE RECORDS SUMMARY | 2018-08-03 20:11 | XMS REPORT | Encounter Summary ---
Author Author [facility] Organization [facility] Address Unknown Phone Unavailable Care Team Providers Care Bottom Bleacher Name Role Phone Yana Chadwick MD 21 Shreyas Puentes MD 3 Eden Hennessy MD PCP Encounter Details Care Team Description Date Type Department Glenys Kessler MD [address] Ortho/Med Pavilion Lvl [address] [place] [address] [phone] Essential (primary) hypertension 05/13/2018 [facility] [address] [address] Social History Date Tobacco Use Types Packs/Day [...] LAB D(25-OH)Total Specimen Blood Performing Organization Address [facility] Phone Number [facility] [address] [place] [address] * BASIC METABOLIC PANEL (05/13/2018 9:13 AM [...] >60 >60 mL/min K[facility] MAIN LAB Comment: [place] The eGFR is not validated for use in drug dosing adjustments.Continue to use estimated creatinine clearance per dosing reference text.Please contact the Clinical Pharmacist for questions. eGFR >60 >60 mL/min KU MAIN LAB [place] Comment: The eGFR is not validated for use in drug dosing adjustments.Continue to use estimated creatinine clearance per dosing reference text.Please contact the Clinical Pharmacist for questions. Specimen Blood Performing Organization Address [facility] Phone Number [facility] [address] [place] [address] documented in this encounter Visit Diagnoses Diagnosis Resistant hypertension Hyperparathyroid bone disease (HCC) Primary hyperparathyroidism Essential hypertension Unspecified essential hypertension documented in this encounter
--- OUTSIDE RECORDS SUMMARY | 2018-08-03 20:11 | XMS REPORT | Encounter Summary ---
Author Author [facility] Organization [facility] Address Unknown Phone Unavailable Care Team Providers Care Tube Depatcher Name Role Phone Yana Chadwick MD 21 Shreyas Puentes MD 3 Eden Hennessy MD PCP Reason for Visit * Reason Comments Critical Result Encounter Details Care Team Description Date Type Department Glenys Kessler MD [address] Ortho/Med Pavilion L[address] [place] [address] [phone] Critical Result 05/13/2018 Telephone The [facility] [address] [address] Social History Date Tobacco Use [...]
--- OUTSIDE RECORDS SUMMARY | 2018-08-03 20:11 | XMS REPORT | Encounter Summary ---
Author Author [facility] Organization [facility] Address Unknown Phone Unavailable Care Team Providers Care Wedding Photographer Name Role Phone Yana Chadwick MD 21 Shreyas Puentes MD 3 Eden Hennessy MD PCP Reason for Referral * Consult, Test & Treat (Routine) Referred By Contact Referred To Contact Status Reason Specialty Diagnoses / Procedures Glenys Kessler MD [address] [place] [facility] Ortho/Med Pavilion Lvl [address] [place] [address] [facility] [address] [place] [address] Closed Specialty Services Pulmonology Diagnoses Required Sleep apnea, unspecified type Reason for Visit * Reason Comments Other Encounter Details Care Team Description Date Type Department Glenys Kessler MD 1999 [facility] Ortho/Med Pavilion Lvl [address] [place] [address] [phone] Resistant hypertension (Primary Dx); Hyperparathyroid bone disease (HCC); Sleep apnea, unspecified type 05/13/2018 Office Visit [facility] [address] [address] Social History Date Tobacco Use [...] Urine Narrative Performed At Performing Organization Address City/[facility]/Zipcode Phone Number OTHER OUTSIDE LAB * CALCIUM-URINE 24HR (05/19/2018) Calcium 24 Hr 53.9 100.0 - 300.0 OTHER OUTSIDE LAB Specimen Urine - Urine Narrative Performed At Performing Organization Address City/[facility]/Zipcode Phone Number OTHER OUTSIDE LAB * CORTISOL,SALIVA (05/18/2018) Cortisol, 0.018 0.010 - 0.090 [facility] Sample 2 Specimen Saliva - Salivette Swab Narrative Performed At Performing Organization Address City/[facility]/Zipcode Phone Number MAIN LAB [address] [place] [address] * CORTISOL,SALIVA (05/17/2018 11:00 PM CDT) Cortisol, 0.054 0.010 - 0.090 [facility] Sample 1 Specimen Saliva - Salivette Swab Narrative Performed At Performing Organization Address [facility] Phone Number MAIN LAB [address] [place] [address] * 25-OH VITAMIN D (D2 + D3) (05/13/2018 9:13 AM CDT) Vitamin 19.7 (L) 30 - 80 NG/ML [facility] D(25-OH)Total Specimen Blood Performing Organization Address City/State/Zipcode Phone Number [facility] [address] [place] [address] * BASIC METABOLIC PANEL (05/13/2018 9:13 AM [...] >60 >60 mL/min [facility] Comment: Sri Lankan The eGFR is not validated for use in drug dosing adjustments.Continue to use estimated creatinine clearance per dosing reference text.Please contact the Clinical Pharmacist for questions. eGFR >60 >60 mL/min [facility]IN [facility] Sri [place]ankan Comment: The eGFR is not validated for use in drug dosing adjustments.Continue to use estimated creatinine clearance per dosing reference text.Please contact the Clinical Pharmacist for questions. Specimen Blood Performing Organization Address City/State/Zipcode Phone Number [facility] [address] [place] [address] documented in this encounter Visit Diagnoses Diagnosis Resistant hypertension - Primary Hyperparathyroid bone disease (HCC) Primary hyperparathyroidism Sleep apnea, unspecified type documented in this encounter
--- OUTSIDE RECORDS SUMMARY | 2018-08-03 20:11 | XMS REPORT | Encounter Summary ---
Author Author [facility] Organization [facility] Address Unknown Phone Unavailable Care Team Providers Care Manager Animal Name Role Phone Yana Chadwick MD 21 Shreyas Puentes MD 3 Eden Hennessy MD PCP Reason for Visit * Reason Comments Lab Results Encounter Details Care Team Description Date Type Department Cat Valenzuela RN Lab Results 05/16/2018 Telephone [facility] 4000 [facility] [place] [address] Social History Date Tobacco Use Types Packs/Day [...]
--- OUTSIDE RECORDS SUMMARY | 2018-08-03 20:11 | XMS REPORT | Encounter Summary ---
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 CT LOWER EXTREM WO/W CONT LT * Radiology Services Referred By Contact Referred To Contact Status Reason Specialty Diagnoses / [place] [address] [address] [place] [address] [address] [place] [address] Closed Radiology Diagnoses 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 CT LOWER EXTREM WO/W CONT LT Reason for Visit * Radiology Services Referred By Contact Referred To Contact Status Reason Specialty Diagnoses / [place] [address] Med Office d [address] [place] [address] [place] [address] Closed Radiology Diagnoses 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
--- OUTSIDE RECORDS SUMMARY | 2018-08-03 20:11 | XMS REPORT | Encounter Summary ---
Author Author [facility] Organization [facility] Address Unknown Phone Unavailable Care Team Providers Care Last Marker Name Role Phone Yana Chadwick MD 21 Shreyas Puentes MD 3 Eden Hennessy MD PCP Reason for Visit * Reason Comments Lab Results Encounter Details Care Team Description Date Type Department Cat Valenzuela RN Lab Results 05/09/2018 Telephone The [address] [place] [address] Social History Date Tobacco Use Types Packs/Day [...] entered and will fax to [facility]. * Telephone Encounter - Cat Valenzuela RN [...] MAIN LAB eGFR 92 [facility] MAIN [facility] [place] Anion Gap [facility] MA[facility] Specimen Blood - Blood Narrative Performed At MAIN LAB Dr. Blue, repeat labs for review.Adjusted BP meds approximately 10 days ago.Creat bumped previously to 1.32 on 05/04.Wanted recheck in a couple weeks.Patient already went to lab - Cr now 1.10.Anamika Avila Performing Organization Address City/State/Zipcode Phone Number MAIN LAB [address] [place] [address] documented in this encounter Visit Diagnoses Diagnosis MELI (obstructive sleep apnea) - Primary Obstructive sleep apnea (adult) (pediatric) Resistant hypertension documented in this encounter
--- OUTSIDE RECORDS SUMMARY | 2018-08-03 20:11 | XMS REPORT | Encounter Summary ---
Author Author [facility] Organization [facility] Address Unknown Phone Unavailable Care Team Providers Care Avid Editor Name Role Phone Yana Chadwick MD 21 Shreyas Puentes MD 3 Eden Hennessy MD PCP Encounter Details Care Team Description Date Type Department Iwona Lira RN Resistant hypertension; Hyperparathyroid bone disease (HCC) 05/25/2018 Orders Only [facility] [address] [address] Social History Date Tobacco Use [...] Urine Narrative Performed At Performing Organization Address City/State[facility] Phone Number OTHER OUTSIDE LAB documented in this encounter Visit Diagnoses Diagnosis Resistant hypertension Hyperparathyroid bone disease (HCC) Primary hyperparathyroidism documented in this encounter
--- OUTSIDE RECORDS SUMMARY | 2018-08-03 20:12 | XMS REPORT | Encounter Summary ---
Author Author [facility] Organization [facility] Address Unknown Phone Unavailable Care Team Providers Care Tailor'S Aide Name Role Phone Yana Chadwick MD 21 Shreyas Puentes MD 3 Eden Hennessy MD PCP Encounter Details Care Team Description Date Type Department Roger Blue MD [address] [phone] 04/28/2018 Hospital [facility] [address] [phone] Social History Date Tobacco Use Types Packs/Day [...] FRACT FREE PLASMA (04/28/2018 4:53 PM CDT) [facility] Normetaphrine, 0.54 REFERENCE LAB Plasma Comment: Reference range: <0.90 Unit: nmol/L [facility], [address] [place] [address] Metanephrine,Pl <0.20 REFERENCE LAB asma Reference range: <0.50 Unit: nmol/L ADDITIONAL INFORMATION This test was developed and its performance characteristics determined by [facility] in a manner consistent with CLIA requirements. This test has not been cleared or approved by the U.S. Food and Drug Administration. [facility], [facility] [place] [address] Specimen Blood Performing Organization Address City/State/Zipcode Phone Number REFERENCE LAB REFERENCE LAB See results for address. * URIC ACID (04/28/2018 4:53 PM CDT) Uric Acid 6.0 4.0 - 8.0 MG/DL [facility]IN [facility] Specimen Blood Performing Organization Address [facility] Phone Number [facility] [address] [place] [address] * THYROID STIMULATING HORMONE-TSH (04/28/2018 4:53 PM CDT) TSH 1.450 0.35 - 5.00 MCU/ML [facility] MAIN [facility] Specimen Blood Performing Organization Address [facility] Phone Number [facility] [address] [place] [address] * RENIN-RANDOM (04/28/2018 4:53 PM CDT) Renin-Random 10 3 - 45 pg/mL MAIN LAB Comment: The renin value is a new "direct" assay corresponding to antigen concentration rather than renin activity. The normal ratio for aldosterone to renin is 0.1-3.7. A ratio of greater than 3.7 is suggestive of aldosteronism. Specimen Blood Performing Organization Address [facility] Phone Number MAIN LAB [address] [place] [address] * PARATHYROID HORMONE (04/28/2018 4:53 PM CDT) PTH Hormone 160.2 (H) 10 - 65 PG/ML MAIN LAB Specimen Blood Performing Organization Address [facility] Phone Number [facility] [address] [place] [address] * CORTISOL,RANDOM (04/28/2018 4:53 PM CDT) Cortisol, 6.3 5.0 - 20.0 MCG/DL [facility] MAIN [facility] Random Specimen Blood Performing Organization Address [facility] Phone Number MAIN LAB [address] [place] [address] * COMPREHENSIVE METABOLIC PANEL (04/28/2018 4:53 PM [...] >60 >60 mL/min [facility] MAIN [facility] Comment: Sudanese The eGFR is not validated for use in drug dosing adjustments.Continue to use estimated creatinine clearance per dosing reference text.Please contact the Clinical Pharmacist for questions. eGFR >60 >60 mL/min [facility] MAIN [facility] Sudanese Comment: The eGFR is not validated for use in drug dosing adjustments.Continue to use estimated creatinine clearance per dosing reference text.Please contact the Clinical Pharmacist for questions. Specimen Blood Performing Organization Address City/State/Zipcode Phone Number [facility] [address] [place] [address] * CBC (04/28/2018 4:53 PM CDT) White [...] MAIN LAB Specimen Blood Performing Organization Address City/[facility]/Zipcode Phone Number [facility] [address] [place] [address] * ALDOSTERONE-RANDOM (04/28/2018 4:53 PM CDT) Aldosterone, 13 3 - 24 ng/dL MAIN LAB Random Specimen Blood Performing Organization Address City/State/Zipcode Phone Number MAIN LAB [address] [place] [address] documented in this encounter Visit Diagnoses Diagnosis Essential hypertension Unspecified essential hypertension documented in this encounter
--- OUTSIDE RECORDS SUMMARY | 2018-08-03 20:12 | XMS REPORT | Encounter Summary ---
Author Author [facility] Organization [facility] Address Unknown Phone Unavailable Care Team Providers Care Thermograph Operator Name Role Phone Yana Chadwick MD 21 Shreyas Puentes MD 3 Eden Hennessy MD PCP Reason for Referral * Consult, Test & Treat (Routine) Referred By Contact Referred To Contact Status Reason Specialty Diagnoses / Procedures Roger Blue MD [address] [place] [address] Pending Review Diagnoses Essential hypertension P rocedures REQUEST FOR CARDIOLOGY APPOINTMENT * Consult, Test & Treat (Routine) Referred By Contact Referred To Contact Status Reason Specialty Diagnoses / Procedures Saul Altamirano MD [address] [place] [address] New Request Procedures REQUEST FOR CARDIOLOGY APPOINTMENT Reason for Visit * Reason Comments Cardiac Eval HTN * Consult, Test & Treat (Routine) Referred By Contact Referred To Contact Status Reason Specialty Diagnoses / Procedures Saul Altamirano MD [address] [place] [address] New Request Procedures REQUEST FOR CARDIOLOGY APPOINTMENT Encounter Details Care Team Description Date Type Department Roger Blue MD [address] [place] [address] [phone] Cardiac Eval (HTN) 04/28/2018 Office Visit [facility] [address] [facility] [id number] [place] [address] Social History Date Tobacco Use Types Packs/Day [...] pleasure to see you today! 1. Please cigar packer and picker blood pressure cuff from pharmacy and send [...] in the meantime, please call MILDRED Willson [phone]. G ood to see you and take [...] device in situ 01/14/2017 Sinus node dysfunction ([facility]) 11/02/2016 Dr. Valdez S/p PPM implant- [employer] 02/20/16 PSVT (paroxysmal supraventricular tachycardia) ([facility]) 11/02/2016 Resistant hypertension 11/02/2016 MELI (obstructive [...] machine that works for him with his [facility] physician 7. We will work with him [...] Plasma Comment: Reference range: <0.90 Unit: nmol/L [facility], [address] [place] [address] Metanephrine,Pl <0.20 REFERENCE LAB asma Reference range: <0.50 Unit: nmol/L ADDITIONAL INFORMATION This test was developed and its performance characteristics determined by [facility] in a manner consistent with CLIA requirements. This test has not been cleared or approved by the U.S. Food and Drug Administration. [facility], [address] [place] [address] Specimen Blood Performing Organization Address [facility] Phone Number REFERENCE LAB REFERENCE LAB See results for address. * CORTISOL,RANDOM (04/28/2018 4:53 PM CDT) Cortisol, 6.3 5.0 - 20.0 MCG/DL MAIN LAB Random Specimen Blood Performing Organization Address [facility] Phone Number MAIN LAB [address] [place] [address] * ALDOSTERONE-RANDOM (04/28/2018 4:53 PM CDT) Aldosterone, 13 3 - 24 ng/dL MAIN LAB Random Specimen Blood Performing Organization Address [facility] Phone Number MA[facility] LAB [address] [place] [address] * RENIN-RANDOM (04/28/2018 4:53 PM CDT) Renin-Random 10 3 - 45 pg/mL [facility]IN [facility] Comment: The renin value is a new "direct" assay corresponding to antigen concentration rather than renin activity. The normal ratio for aldosterone to renin is 0.1-3.7. A ratio of greater than 3.7 is suggestive of aldosteronism. Specimen Blood Performing Organization Address [facility] Phone Number [facility] [address] [place] [address] * URIC ACID (04/28/2018 4:53 PM CDT) Uric Acid 6.0 4.0 - 8.0 MG/DL [facility]IN [facility] Specimen Blood Performing Organization Address [facility] Phone Number [facility] [address] [place] [address] * PARATHYROID HORMONE (04/28/2018 4:53 PM CDT) PTH Hormone 160.2 (H) 10 - 65 PG/ML [facility]IN [facility] Specimen Blood Performing Organization Address [facility] Phone Number [facility] [address] [place] [address] * THYROID STIMULATING HORMONE-TSH (04/28/2018 4:53 PM CDT) TSH 1.450 0.35 - 5.00 MCU/ML [facility] MAIN [facility] Specimen Blood Performing Organization Address [facility] Phone Number [facility] [address] [place] [address] * COMPREHENSIVE METABOLIC PANEL (04/28/2018 4:53 PM [...] >60 >60 mL/min [facility] MAIN LAB Comment: Cameroonian The eGFR is not validated for use in drug dosing adjustments.Continue to use estimated creatinine clearance per dosing reference text.Please contact the Clinical Pharmacist for questions. eGFR >60 >60 mL/min [facility] MAIN LAB Cameroonian Comment: The eGFR is not validated for use in drug dosing adjustments.Continue to use estimated creatinine clearance per dosing reference text.Please contact the Clinical Pharmacist for questions. Specimen Blood Performing Organization Address City/[facility]/Zipcode Phone Number MAIN LAB [address] [place] [address] * CBC (04/28/2018 4:53 PM CDT) White [...] MAIN LAB Specimen Blood Performing Organization Address City/[facility]/Zipcode Phone Number MAIN LAB [address] [place] [address] documented in this encounter Visit Diagnoses Diagnosis Essential hypertension - Primary Unspecified essential hypertension documented in this encounter
--- OUTSIDE RECORDS SUMMARY | 2018-08-03 20:12 | XMS REPORT | Encounter Summary ---
Author Author [facility] Organization [facility] Address Unknown Phone Unavailable Care Team Providers Care Resident Physician In Radiology Name Role Phone Yana Chadwick MD 21 Shreyas Puentes MD 3 Eden Hennessy MD PCP Encounter Details Care Team Description Date Type Department Cindy Swan RN 04/25/2018 Telephone The [facility] [address] [place] [phone] Social History Date Tobacco Use Types Packs/Day [...]
--- OUTSIDE RECORDS SUMMARY | 2018-08-03 20:12 | XMS REPORT | Encounter Summary ---
Author Author [facility] Organization [facility] Address Unknown Phone Unavailable Care Team Providers Care Burner Machine Operator Name Role Phone Yana Chadwick MD 21 Shreyas Puentes MD 3 Eden Hennessy MD PCP Reason for Referral * Consult, Test & Treat (Routine) Referred By Contact Referred To Contact Status Reason Specialty Diagnoses / Procedures Saul Altamirano MD [address] [place] [address] [facility] [address] [place] [address] No Auth Needed Cardiology Diagnoses Essential hypertension Sinus node dysfunction (HCC) NSVT (nonsustained ventricular tachycardia) (HCC) Bruit P rocedures PV RENAL ARTERY DUPLEX SCAN OR DUP-SCAN ARTL ARGENIS ABDL/PEL/SCROT&/RP R ORGN COM * Consult, Test & Treat (Routine) Referred By Contact Referred To Contact Status Reason Specialty Diagnoses / Procedures Saul Altamirano MD [address] [address] [facility] [address] [place] [address] No Auth Needed Cardiology Diagnoses Essential hypertension Sinus node dysfunction (HCC) NSVT (nonsustained ventricular tachycardia) (HCC) Bruit P rocedures PV RENAL ARTERY DUPLEX SCAN OR DUP-SCAN ARTL ARGENIS ABDL/PEL/SCROT&/RP R ORGN COM Reason for Visit * Consult, Test & Treat (Routine) Referred By Contact Referred To Contact Status Reason Specialty Diagnoses / Procedures Saul Altamirano MD [address] [address] [facility] [address] [address] No Auth Needed Cardiology Diagnoses Essential hypertension Sinus node dysfunction (HCC) NSVT (nonsustained ventricular tachycardia) (HCC) Bruit P rocedures PV RENAL ARTERY DUPLEX SCAN OR DUP-SCAN ARTL ARGENIS ABDL/PEL/SCROT&/RP R ORGN COM Encounter Details Care Team Description Date Type Department Saul Altamirano MD [address] [place] [phone] 04/12/2018 [facility] [address] [phone] Social History Date Tobacco Use Types Packs/Day [...] Comments Vital Sign 152/89 04/12/2018 2:06 PM AMPOULE FILLER Blood Pressure - - Pulse - - Temperature - - Respiratory Rate - - Oxygen Saturation - - Inhaled Oxygen Concentration 133.1 kg (293 lb 6.4 oz) 04/12/2018 2:06 PM AMPOULE FILLER Weight 170.2 cm (5' 7") 04/12/2018 2:06 PM AMPOULE FILLER Height 45.95 04/12/2018 2:06 PM AMPOULE FILLER Body Mass Index documented in this encounter [...] Routine 04/12/2018 Essential hypertension SCAN 2:06 PM AMPOULE FILLER Sinus node dysfunction (HCC) NSVT (nonsustained ventricular tachycardia) (HCC) Bruit documented in this encounter Results * PV RENAL ARTERY DUPLEX SCAN (04/12/2018 2:06 PM AMPOULE FILLER) AORTIC PROXIMAL 0.6 m/s OTHER OUTSIDE VELOCITY [...]
--- OUTSIDE RECORDS SUMMARY | 2018-08-03 20:12 | XMS REPORT | Encounter Summary ---
Author Author [facility] Organization [facility] Address Unknown Phone Unavailable Care Team Providers Care Sky Line Yarder Name Role Phone Yana Chadwick MD 21 Shreyas Puentes MD 3 Eden Hennessy MD PCP Reason for Visit * Reason Comments Hypertension Encounter Details Care Team Description Date Type Department Sonal Mariscal Hypertension 05/03/2018 Telephone The [facility] [address] [place] [address] Social History Date Tobacco Use Types Packs/Day [...] he had labs drawn this morning at [facility]. He states he w as [facility] Will request lab resu lts to [...] to plan. Will recheck labs tomorrow at [place], [place]. * Telephone Encounter - Hellen Scott RN - 05/03/2018 4:47 PM CDT Mela Correa [facility] Nurse Rei Butcher, pt is MPE's pt [...] Address City/State/Zipcode Phone Number MAIN LAB [address] [place] [address] * BASIC METABOLIC PANEL (05/04/2018) Sodium 130 [facility] MAIN [facility] Potassium 3.7 [facility] MA[facility] Chloride 100 [facility] MA[facility] CO2 25 [facility] MA[facility] Blood Urea 16 [facility] MAIN [facility] Nitrogen Creatinine 1.32 [facility] MA[facility] Glucose 139 [facility] MA[facility] Calcium 9.9 [facility] MAIN LAB eGFR Non 59 (L) >60 [facility] MAIN LAB eGFR KU MAIN LAB Panamanian Anion Gap 13 K[facility] MAIN LAB Specimen Blood - Blood Narrative Performed At Performing Organization Address City/State/Zipcode Phone Number MAIN LAB [address] [place] [address] documented in this encounter Visit Diagnoses Diagnosis Resistant hypertension - Primary documented in this encounter
--- OUTSIDE RECORDS SUMMARY | 2018-08-03 20:12 | XMS REPORT | Encounter Summary ---
Author Author [facility] Organization [facility] Address Unknown Phone Unavailable Care Team Providers Care Vineyard Worker Name Role Phone Yana Chadwick MD 21 Shreyas Puentes MD 3 Eden Hennessy MD PCP Reason for Referral * Consult, Test & Treat (Routine) Referred By Contact Referred To Contact Status Reason Specialty Diagnoses / Procedures Saul Altamirano MD [address] [facility] [place] [address] Rb - Sleep Disordr Ctr [address] [place] [address] New Request Specialty Services Sleep Center Diagnoses Required Essential hypertension Scheduling Instructions Neck circumference may be a required measurement for sleep study prior authorization and/or claim payment. Has neck circumference been obtained? no Reason for Visit * Reason Comments Hypertension Encounter Details Care Team Description Date Type Department Alejandro West RN Hypertension 04/19/2018 Telephone [facility] [address] [place] [address] Social History Date Tobacco Use Types Packs/Day [...] 2:37 PM CDT Per Cindy Swan via [employer]... viola white... velásquez needs to take clonidine [...] faxed the the Central Referral fax # [phone]. I gave him the number for the Sleep Medicine Clinic ([phone]); I told hi m to call to [...] elevated, they plan on admitting him to [facility] in [place]. He states, if admitted, he wants to be admitted to . I told him that the medical staff at [facility] can seek transfer to if they would [...] can r equest records. Will route to [facility] for review with MPE - increase clonidine? [...]
--- OUTSIDE RECORDS SUMMARY | 2018-08-03 20:12 | XMS REPORT | Encounter Summary ---
Author Author [facility] Organization [facility] Address Unknown Phone Unavailable Care Team Providers Care Studio Engineer Name Role Phone Yana Chadwick MD 21 Shreyas Puentes MD 3 Eden Hennessy MD PCP Reason for Referral * Pain Authorization (Routine) Referred By Contact Referred To Contact Status Reason Specialty Diagnoses / [place] [address] [place] [address] Geoff Spivey, DO [address] [facility] [place] [address] Closed Neurology Diagnoses History of lipoma Sarcoma (HCC) Pain of left lower leg P rocedures SPINE EMG PROCEDURE Reason for Visit * Reason Comments Pain Encounter Details Care Team Description Date [place] [address] [place] [address] [phone] History of lipoma (Primary Dx); Sarcoma (HCC); Pain of left lower leg 05/02/2018 Office Visit [facility] [address] [place] [address] Social History Date Tobacco Use Types Packs/Day [...] How to reach me: Please send a FancyBox message to the Spine Center or leave a voicemail Amanda Plummer at [phone] How to get a medication refill: Please use the FancyBox Refill request or cont act your pharmacy directly to request medication refills. How to receive your test results: If you have signed up for FancyBox, you will receive your test results and messages from me this way. Otherwise, you will get a phone call or letter. If you are expecting results and have not heard from my office within 2 weeks of your testing, please send a FancyBox message or call my office. Scheduling: Our scheduling phone number if you are a Spine Center patient is [phone]. If you are a cancer center patient, please call the cancer center you go to for scheduling. Appointment Reminders on your cell phone: Make sure we have your cell phone n ze, and Text [facility] to [phone]. Support for many chronic illnesses is available through [facility]: turnin [facility] or [phone]. For questions on nights, weekends or holidays, call the band log mill and carriage operator at , and ask for the doctor oracle applications developer for Physical Medicine and Rehab. documented in this encounter Progress Notes * Lexi Amezcua MD - 05/02/2018 11:00 AM CDT ONCOLOGY REHAB HISTORY AND PHYSICAL Chief Complaint Patient presents with Left Thigh - Pain Subjective HISTORY OF PRESENT ILLNESS: Mr. Velásquez is a pleasant 47 y.o. male with a history of LLE lipoma s/p resection x 4 in [place] with the last in 2015 who is seen on 05/02/2018 at the [facility] for follow up evaluation and treatment [...] uncle; Dialysis in his paternal grandfather; Heart Remigoi ck in his father, maternal grandfather, maternal [...] LLE lipoma s/p re section x4 in [place] with the last in 2015. History and [...] but discussed that we do not do alf opioid mgmt at the spine center. We [...] home with no complications. RTC with Dr. Amzecua. 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
--- OUTSIDE RECORDS SUMMARY | 2018-08-03 20:13 | XMS REPORT | Encounter Summary ---
Author Author [facility] Organization [facility] Address Unknown Phone Unavailable Care Team Providers Care Mohel Name Role Phone Yana Chadwick MD 21 Shreyas Puentes MD 3 Eden Hennessy MD PCP Reason for Visit * Reason Comments Pain Encounter Details Care Team Description Date Type [place] [address] [place], [place] [id number] Chronic pain syndrome (Primary Dx); History of lipoma; Sarcoma (HCC) 04/11/2018 Office Visit [facility] [address] [place], [place] [id number] Social History Date Tobacco Use Types Packs/Day [...] Comments Vital Sign 152/89 04/11/2018 10:31 AM SPECIFICATIONS CHECKER Blood Pressure 81 04/11/2018 10:31 AM SPECIFICATIONS CHECKER Pulse - - Temperature - - Respiratory Rate 97% 04/11/2018 10:31 AM SPECIFICATIONS CHECKER Oxygen Saturation - - Inhaled Oxygen Concentration 136.1 kg (300 lb) 04/11/2018 10:31 AM SPECIFICATIONS CHECKER Weight 170.2 cm (5' 7") 04/11/2018 10:31 AM SPECIFICATIONS CHECKER Height 46.99 04/11/2018 10:31 AM SPECIFICATIONS CHECKER Body Mass Index documented in this encounter [...] Lexi Amezcua MD - 04/11/2018 10:30 AM SPECIFICATIONS CHECKER ONCOLOGY REHAB HISTORY AND PHYSICAL Chief Complaint Patient presents with Left Thigh - Pain Subjective HISTORY OF PRESENT ILLNESS: Mr. Velásquez is a pleasant 47 y.o. male with a history of LLE lipoma s/p resection x 4 in [place] with the last in 2015 who is seen on 04/11/2018 at the [facility] for follow up evaluation and treatment [...] LLE lipoma s/p re section x4 in [place] with the last in 2015. History and [...] but discussed that we do not do watermelon harvesting supervisor opioid mgmt at the spine center. [...] be reasonable/he should ben edule an appointment. 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
--- OUTSIDE RECORDS SUMMARY | 2018-08-03 20:13 | XMS REPORT | Encounter Summary ---
Author Author [facility] Organization [facility] Address Unknown Phone Unavailable Care Team Providers Care Green Prize Packer Name Role Phone Yana Chadwick MD 21 Shreyas Puentes MD 3 Eden Hennessy MD PCP Encounter Details Care Team Description Date Type Department Sawyer Dean Sinus node dysfunction (HCC) (Primary Dx); Cardiac device in situ 04/07/2018 Orders Only [facility] [id number] [place] [address] Social History Date Tobacco Use Types Packs/Day [...]
--- OUTSIDE RECORDS SUMMARY | 2018-08-03 20:13 | XMS REPORT | Encounter Summary ---
Author Author [facility] Organization [facility] Address Unknown Phone Unavailable Care Team Providers Care Machine Sand Mixer Name Role Phone Yana Chadwick MD 21 Shreyas Puentes MD 3 Eden Hennessy MD PCP Reason for Referral * Consult, Test & Treat (Routine) Referred By Contact Referred To Contact Status Reason Specialty Diagnoses / Procedures Saul Altamirano MD [address] [place] [address] Pending Review Procedures REQUEST FOR CARDIOLOGY APPOINTMENT * Consult, Test & Treat (Routine) Referred By Contact Referred To Contact Status Reason Specialty Diagnoses / Procedures Saul Altamirano MD [address] [place] [address] Cv [address] [address] [place] [address] No Auth Needed Cardiology Diagnoses Essential hypertension Sinus node dysfunction (HCC) NSVT (nonsustained ventricular tachycardia) (HCC) Bruit P rocedures PV RENAL ARTERY DUPLEX SCAN NH DUP-SCAN ARTL ARGENIS ABDL/PEL/SCROT&/RP R ORGN COM * Consult, Test & Treat (Routine) Referred By Contact Referred To Contact Status Reason Specialty Diagnoses / Procedures Saul Altamirano MD [address] [place] [address] New Request Procedures REQUEST FOR CARDIOLOGY APPOINTMENT * Consult, Test & Treat Referred By Contact Referred To Contact Status Reason Specialty Diagnoses / Procedures Saul Altamirano MD [address] [place] [address] [place] [address] No Auth Needed Cardiology Procedures REQUEST FOR CARDIOLOGY APPOINTMENT Reason for Visit * Reason Comments Cardiac Eval myocarditis, sinis node dysfunction, essential hypertension * Consult, Test & Treat Referred By Contact Referred To Contact Status Reason Specialty Diagnoses / Procedures Saul Altamirano MD [address] [place] [address] [place] [address] No Auth Needed Cardiology Procedures REQUEST FOR CARDIOLOGY APPOINTMENT Encounter Details Care Team Description Date Type Department Saul Altamirano MD [address] [place] [address] [phone] Cardiac Eval (myocarditis, sinis node dysfunction, essential hypertension) 04/07/2018 [place] [address] Social History Date Tobacco Use Types Packs/Day [...] Comments Vital Sign 140/102 04/07/2018 11:31 AM AUDIOLOGIST Blood Pressure 73 04/07/2018 11:31 AM AUDIOLOGIST Pulse - - Temperature - - Respiratory Rate - - Oxygen Saturation - - Inhaled Oxygen Concentration 136.1 kg (300 lb) 04/07/2018 11:31 AM AUDIOLOGIST Weight 170.2 cm (5' 7") 04/07/2018 11:31 AM AUDIOLOGIST Height 46.99 04/07/2018 11:31 AM AUDIOLOGIST Body Mass Index documented in this encounter [...] Cindy Swan RN - 04/07/2018 11:00 AM AUDIOLOGIST start clonidine 0.1 mg daily - this [...] NON-URGENT questions please contact us through your Mendor account. For all medication refills please contact your pharmacy or send a request raegan Keita. For all questions that may need to be addressed urgently please call the nursing triage line at [phone] Wednesday - Wednesday 8-5 only. Please leave a detailed m essage with your name, date of , and reason for your call. To schedule an appointment call [phone]. Please allow 10-15 business days for the results of any testing to be reviewed. Please call our office if you have not heard from a nurse within this time frame . OLOGIST documented in this encounter Progress Notes * Saul Altamirano MD - 04/07/2018 11:00 AM AUDIOLOGIST Date of Service: 04/07/2018 Trent Velásquez Jr. is a 47 y.o. male. HPI I had the pleasure of seeing your patient Trent Velásquez Jr. in the [facility] as a part of the [facility] office today for follow up regarding his [...] Sarcoma followe d by Dr. Puentes at [facility]; Obesity; Tobacco abuse NOTE--pthas stainless steel filter [...] smoking cessation programs such as going to [facility] if necessary. I also anticipate that his [...] -- 03/2015: Cardiac Catheterization by Dr. Calloway [facility] -- 03/2015: Medtronic LinQ Implantable Monitor implantation [...] leads were noted. Plan was tocontact the extractor operator helper, Dr. Leander Lopez specializes in roya coidosis, etc., have MrHollis had worked in more urgently for an office visit [facility]. --I spoke with Dr. LEE. He will be seeing Mr. Velásquez sometime early next asuncion adame. I also spoke with the patient himself about these results and to be expecti ng a call from Dr. LEE. I also contacted the patient's primary chief cardiopulmonary technologist Dr. Bourgeois and let them know of the results and the plan accordingly. He was appreciative that Dr. Lee would be seeing the patient. -- 03/08/17: OV (Dr. Altamirano): Initiated Lisinopril 20 mg dailyfor BP control a nd pt was instructed to follow up with Dr. Lee or a Land Development Project Manager -- 04/28/17: Pulmonary/myocarditis/? sarcoidosis Consultation with Dr. [...] with Dr. Lee regarding myocarditis. -- 08/06/17: EP-LOADER UNLOADER OV (Elizabeth): Pt reported brief, fleeting chest [...] asked him to follow up with his Land Development Project Manager regarding his Methotrexate. -- 09/16/17: Stopped Dyazide and advised hydration as pt had elevated creatinine, BUN and eGFR Vitals: 04/07/18 1131 BP: (!) 140/102 Pulse: 73 Weight: 136.1 kg (300 lb) Height: 1.702 m (5' 7") Body mass index is 46.99 kg/m. Past Medical History Patient Active Problem List Diagnosis Date Noted Class 3 obesity in adult 08/06/2017 Coxsackie viruses 04/28/2017 Sarcoma ([facility]) 04/28/2017 Tobacco abuse 04/28/2017 Myocarditis ([facility]) 02/26/2017 NSVT (nonsustained ventricular tachycardia) ([facility]) 02/26/2017 Cardiac device in situ 01/14/2017 Sinus node dysfunction ([facility]) 11/02/2016 Dr. Valdez S/p PPM implant- Advisa 02/20/16 PSVT (paroxysmal supraventricular tachycardia) ([facility]) 11/02/2016 Hypertension 11/02/2016 MELI (obstructive sleep apnea) [...] acting as scribe for Saul Altamirano M.D. OLOGIST documented in this encounter Plan of Treatment [...] Date/Time Associated Diagnosis ECG-SCAN 04/07/2018 12:00 AM AUDIOLOGIST documented in this encounter Results * PV RENAL ARTERY DUPLEX SCAN (04/12/2018 2:06 PM AUDIOLOGIST) AORTIC PROXIMAL 0.6 m/s OTHER OUTSIDE VELOCITY [...] OTHER OUTSIDE LOWER LAB PARENCHYMA RI Referring Eedn Hennessy OTHER OUTSIDE Provider LAB LEFT RENAL [...] OUTSIDE LAB * ECG-SCAN (04/07/2018 12:00 AM AUDIOLOGIST) Narrative Performed At Ordered by an unspecified provider. documented in this encounter Visit Diagnoses Diagnosis Essential hypertension - Primary Unspecified essential hypertension Sinus node dysfunction (HCC) Sinoatrial node dysfunction NSVT (nonsustained ventricular tachycardia) (HCC) Paroxysmal ventricular tachycardia Bruit Other symptoms involving cardiovascular system documented in this encounter
--- OUTSIDE RECORDS SUMMARY | 2018-08-03 20:13 | XMS REPORT | Encounter Summary ---
Author Author [facility] Organization [facility] Address Unknown Phone Unavailable Care Team Providers Care Oil And Gas Well Treatment Operator Name Role Phone Yana Chadwick MD 21 Shreyas Puentes MD 3 Eden Hennessy MD PCP Reason for Visit * Reason Comments Worsening Symptoms Encounter Details Care Team Description Date Type Department Leander Tovar MD [address] [facility] Ortho/Med Pavilion [address] [place] [id number] Worsening Symptoms 03/18/2018 Telephone [facility] [address] [place] [address] Social History Date Tobacco Use [...] Leander Tovar MD - 03/18/2018 4:50 PM TUBE TRAILER FILLER I contact the patient to notify him [...] that there is the [facility] that [facility] could be a false positive. [...] He was appreciative of t he call. TRAILER FILLER documented in this encounter Plan of Treatment Not on filedocumented as of this encounter Visit Diagnoses Not on filedocumented in this encounter
--- OUTSIDE RECORDS SUMMARY | 2018-08-03 20:13 | XMS REPORT | Encounter Summary ---
Author Author [facility] Organization [facility] Address Unknown Phone Unavailable Care Team Providers Care Bell Person Name Role Phone Yana Chadwick MD 21 Shreyas Puentes MD 3 Eden Hennessy MD PCP Encounter Details Care Team Description Date Type Department Chapin Soto MD [address] [place] [address] 04/05/2018 [facility] [id number] [place] [id number] Social History Date Tobacco Use Types Packs/Day [...] Routine 04/05/2018 Pain INJ RAD 10:50 AM SOCIAL SERVICES documented in this encounter Results * FLUORO GUIDANCE FOR SPINE INJ RAD (04/05/2018 10:50 AM SOCIAL SERVICES) Specimen Narrative Performed At This order has been auto finalized and does not contain a result. CYRUS MCWILLIAMS Performing Organization Address City/State/Zipcode Phone Number CYRUS MCWILLIAMS documented in this encounter Visit Diagnoses Diagnosis Pain Generalized pain documented in this encounter
--- OUTSIDE RECORDS SUMMARY | 2018-08-03 20:13 | XMS REPORT | Encounter Summary ---
Author Author [facility] Organization [facility] Address Unknown Phone Unavailable Care Team Providers Care Unit Assembler Name Role Phone Yana Chadwick MD 21 Shreyas Puentes MD 3 Eden Hennessy MD PCP Reason for Referral * Consult, Test & Treat (Routine) Referred By Contact Referred To Contact Status Reason Specialty Diagnoses / Procedures Leander Tovar MD 1999 [facility] Ortho/Med Pavilion Lvl [address] [place] [address] [facility] [address] [place] [address] New Request Specialty Services Pulmonology Diagnoses Required CPAP (continuous positive airway pressure) dependence MELI (obstructive sleep apnea) Scheduling Instructions Please schedule with sleep team next available Reason for Visit * Reason Comments General Question Encounter Details Care Team Description Date Type Department Leander Tovar MD 1999 [facility] Ortho/Med Pavilion L[address] [place] [address] General Question 04/05/[address] [facility] [address] [place] [address] Social History Date Tobacco Use [...] Beto Reynaga RN - 04/05/2018 2:51 PM CALENDER SUPERVISOR Pt lvm requesting a call back. Called [...] understanding and appreciative of the return call. NDER SUPERVISOR documented in this encounter Plan of [...]
--- OUTSIDE RECORDS SUMMARY | 2018-08-03 20:13 | XMS REPORT | Encounter Summary ---
Author Author [facility] Organization [facility] Address Unknown Phone Unavailable Care Team Providers Care Recovery Advocate Name Role Phone Yana Chadwick MD 21 Shreyas Puentes MD 3 Eden Hennessy MD PCP Reason for Visit * Reason Comments Pain Encounter Details Care Team Description Date Type Department Chapin Soto MD 4000 [facility] Spine [place], [place] [id number] Complex regional pain syndrome type 1 of left lower extremity (Primary Dx) 04/05/2018 Procedure visit The [facility] [address] [place] [phone] Social History Date Tobacco Use Types Packs/Day [...] Comments Vital Sign 160/95 04/05/2018 11:09 AM WEEKEND RECEPTIONIST Blood Pressure 88 04/05/2018 11:09 AM WEEKEND RECEPTIONIST Pulse 36.7 C (98.1 F) 04/05/2018 10:57 AM WEEKEND RECEPTIONIST Temperature 16 04/05/2018 10:06 AM WEEKEND RECEPTIONIST Respiratory Rate 99% 04/05/2018 11:09 AM WEEKEND RECEPTIONIST Oxygen Saturation - - Inhaled Oxygen Concentration 127 kg (280 lb) 04/05/2018 10:06 AM WEEKEND RECEPTIONIST Weight 170.2 cm (5' 7") 04/05/2018 10:06 AM WEEKEND RECEPTIONIST Height 43.85 04/05/2018 10:06 AM WEEKEND RECEPTIONIST Body Mass Index documented in this encounter [...] Mora Amezcua, MILDRED - 04/05/2018 10:00 AM WEEKEND RECEPTIONIST Procedure Completed Today: Other LEFT LUMBAR SYMPATHETIC [...] report this occurrence to a nurse at [phone]. If you are calling after 4:00 p.m., on weekends or holidays please call [phone] and ask to have the resident physician electrical controls designer for the physician p aged or go [...] medications were used: Bupivicaine and Contrast Dye END RECEPTIONIST documented in this encounter Progress Notes * Chapin Soto MD - 04/05/2018 10:00 AM WEEKEND RECEPTIONIST SPINE CENTER INTERVENTIONAL PAIN PROCEDURE HISTORY AND [...] lower extremity PLAN: Left lumbar sympathetic block END RECEPTIONIST * Brooklynn Heaton RN - 04/05/2018 10:00 AM WEEKEND RECEPTIONIST Pain Procedure Plan Of Care Risk of injury related to procedure Patient identification, allergies verified, fall precautions implemented Risk of injury and impaired skin integrity Positioning devices applied as appropriate for procedure, patient transported [facility] staff assistance Management of Pain Pain assessment [...] their stay. Alleviation of patient anxiety exhibited. END RECEPTIONIST documented in this encounter Procedure Notes * Chapin Soto MD - 04/05/2018 10:00 AM WEEKEND RECEPTIONIST Associated Order(s): Nerve Block Post-Procedure Diagnose(s): Complex [...] given by: patient Alternatives discussed: alternative treatment [place] Protocol: Relevant documents: relevant documents present and verified Test results: test results available and properly labeled Imaging studies: imaging studies available Required items: required blood products, implants, devices, and special equipmen t available Site marked: the operative site was marked Time out: Immediately prior to procedure a "time out" was called to verify the c orrect patient, procedure, equipment, human resources support specialist and site/side marked as requ ired Procedures Details: Prep: 2% chlorhexidine Patient position: prone Guidance: fluoroscopy Medications administered: 8 mL bupivacaine PF 0.25 % Outcome: Pain improved Estimated blood loss: none or minimal Specimens: none Patient tolerated the procedure well with no immediate complications. Pressure w as applied, and hemostasis was accomplished. END RECEPTIONIST documented in this encounter Plan of Treatment Not on filedocumented as of this encounter Procedures Comments Procedure Name Priority Date/Time Associated Diagnosis WA INJECTION ANES Routine 04/05/2018 Complex regional pain LMBR/THRC PARAVERTBRL 10:00 AM WEEKEND RECEPTIONIST syndrome type 1 of left SYMPATHETIC lower extremity documented in this encounter Results * Nerve Block (04/05/2018 10:00 AM WEEKEND RECEPTIONIST) Narrative Performed At Chapin Soto MD 04/05/20184:30 PM OTHER OUTSIDE LAB Nerve Block Nerve: lumbar sympathetic Laterality: left Consent: Consent obtained: verbal and written Consent given by: patient Alternatives discussed: alternative treatment [place] Protocol: Relevant documents: relevant documents present and verified Test results: test results available and properly labeled Imaging studies: imaging studies available Required items: required blood products, implants, devices, and special equipment available Site marked: the operative site was marked Time out: Immediately prior to procedure a "time out" was called to verify the correct patient, procedure, equipment, human resources support specialist and site/side marked as required [...] Medication Order MAR Action 04/05/2018 10:49 AM WEEKEND RECEPTIONIST 10 mL bupivacaine PF (MARCAINE) 0.25 % Given injection 10 mL 10 mL, Block, ONCE, 1 dose, 04/05/18 at 1100 04/05/2018 4:30 PM WEEKEND RECEPTIONIST 8 mL bupivacaine PF (MARCAINE) 0.25 % Given injection 8 mL 8 mL, Injection, ONCE PRN, 1 dose, Starting 04/05/18 at 1630, Until 04/05/18 at 1630 04/05/2018 10:37 AM WEEKEND RECEPTIONIST 2.5 mL iopamidol IT 200 (ISOVUE-M 200) Given injection 2.5 mL 2.5 mL, Epidural, ONCE, 1 dose, 04/05/18 at 1045, NOTE: This is a HIGH ALERT Medication., documented in this encounter
--- OUTSIDE RECORDS SUMMARY | 2018-08-03 20:13 | XMS REPORT | Encounter Summary ---
Author Author [facility] Organization [facility] Address Unknown Phone Unavailable Care Team Providers Care Oil Well Services Field Supervisor Name Role Phone Yana Chadwick MD 21 Shreyas Puentes MD 3 Eden Hennessy MD PCP Encounter Details Care Team Description Date Type Department Shama Gallardo RN High risk medication use; Sarcoidosis 03/11/2018 Orders Only The [address] [phone] Social History Date Tobacco Use [...] LAB eGFR Non 90 OTHER OUTSIDE LAB Togolese eGFR 105 OTHER OUTSIDE [place]ogolese LAB Specimen Blood - Blood Narrative Performed At Performing Organization Address City/State/Zipcode Phone Number OTHER OUTSIDE LAB documented in this encounter Visit Diagnoses Diagnosis High risk medication use Encounter for long-term (current) use of other medications Sarcoidosis documented in this encounter
--- OUTSIDE RECORDS SUMMARY | 2018-08-03 20:13 | XMS REPORT | Encounter Summary ---
Author Author [facility] Organization [facility] Address Unknown Phone Unavailable Care Team Providers Care Sportspersons Name Role Phone Yana Chadwick MD 21 Shreyas Puentes MD 3 Eden Hennessy MD PCP Encounter Details Care Team Description Date Type Department Saul Altamirano MD [address] [phone] 04/07/2018 Hospital [facility] [address] [id number] Social History Date Tobacco Use Types Packs/Day [...] Routine 04/07/2018 Other myocarditis, 9:25 AM SENIOR ACCOUNTING CLERK unspecified chronicity (HCC) Sinus node dysfunction (HCC) Essential hypertension documented in this encounter Results * DEVICE EVALUATION - PPM (04/07/2018 9:25 AM SENIOR ACCOUNTING CLERK) Generator [employer]tronic OTHER OUTSIDE Graphic Engineer LAB Generator Model [id number] OTHER OUTSIDE # LAB Generator [id number] OTHER OUTSIDE Serial # LAB Generator 02/20/16 OTHER OUTSIDE Implnat Date LAB Generator Yes OTHER OUTSIDE Investigational LAB Device Mode aair/dddr OTHER OUTSIDE LAB Mode Switch On OTHER OUTSIDE Status LAB Lower Rate 60 OTHER OUTSIDE Limit LAB Mode Switch 171 OTHER OUTSIDE (bpm) LAB Atrial Lead [employer]tronic OTHER OUTSIDE Graphic Engineer LAB Atrial Lead [id number] OTHER OUTSIDE Model # LAB Atrial Lead [id number] OTHER OUTSIDE Serial # LAB Atrial Lead 02/20/16 OTHER OUTSIDE Implant Date LAB Atrial Lead Yes OTHER OUTSIDE Investigational LAB RV Lead Medtronic OTHER OUTSIDE Graphic Engineer LAB RV Lead Model # 5076-58 OTHER OUTSIDE LAB RV Lead Serial [id number] OTHER OUTSIDE # LAB RV Lead Implant [...] By LAB Device [facility] [employer] OTHER OUTSIDE [place] LAB Transmitter Compatible Known Diagnosed No OTHER [...] Monitoring? LAB -VS% 65.4 OTHER OUTSIDE LAB -COMMERCIAL SPECIALIST% <1 OTHER OUTSIDE LAB -VS% 34.5 OTHER OUTSIDE LAB AP-COMMERCIAL SPECIALIST% <1 OTHER OUTSIDE LAB # Mode S. [...] to 1.5V. Pt no longer follows with barrel planer in [place], [place]. Sarah Henry flagged to enroll in [facility]. Reviewed with MPE in clinic and routed check for cosign. Performing Organization Address City/State/Zipcode Phone Number OTHER OUTSIDE LAB documented in this encounter Visit Diagnoses Diagnosis Other myocarditis, unspecified chronicity (HCC) Sinus node dysfunction (HCC) Sinoatrial node dysfunction Essential hypertension Unspecified essential hypertension documented in this encounter
--- OUTSIDE RECORDS SUMMARY | 2018-08-03 20:14 | XMS REPORT | Encounter Summary ---
Author Author [facility] Organization [facility] Address Unknown Phone Unavailable Care Team Providers Care Wedding Coordinator Name Role Phone Yana Chadwick MD 21 Shreyas Puentes MD 3 Eden Hennessy MD PCP Reason for Referral * Radiology Services (Routine) Referred By Contact Referred To Contact Status Reason Specialty Diagnoses / [place] [address] [place] [address] New Request Radiology Diagnoses History of lipoma Sarcoma (HCC) Complex regional pain syndrome type 2 of left lower extremity P rocedures NM BONE SPECT * Radiology Services (Routine) Referred By Contact Referred To Contact Status Reason Specialty Diagnoses / [place] [address] [place] [address] New Request Radiology Diagnoses History of lipoma Sarcoma (HCC) Complex regional pain syndrome type 2 of left lower extremity P rocedures NM BONE SPECT Reason for Visit * Radiology Services (Routine) Referred By Contact Referred To Contact Status Reason Specialty Diagnoses / [place] [address] [place] [address] Radiology [address] [facility] Level [address] [place] [address] No Auth Needed Radiology Diagnoses History of lipoma Sarcoma (HCC) Complex regional pain syndrome type 2 of left lower extremity P rocedures NM BONE SCAN WHOLEBODY NM BONE SCAN THREE PHASE Encounter Details Care Team Description Date [place] [address] [place] [address] [phone] 03/09/2018 [facility] [address] [place] [address] Social History Date Tobacco Use Types Packs/Day [...] Routine 03/09/2018 History of lipoma 2:52 PM MESSAGE CLERK Sarcoma (HCC) Complex regional pain syndrome type 2 of left lower extremity NM BONE SPECT Routine 03/09/2018 History of lipoma 2:52 PM MESSAGE CLERK Sarcoma (HCC) Complex regional pain syndrome type 2 of left lower extremity documented in this encounter Results * NM BONE SCAN WHOLEBODY (03/09/2018 2:52 PM MESSAGE CLERK) Specimen Impressions Performed At 1. No scintigraphic [...] Interface, Radiant Results - 03/09/2018 3:56 PM MESSAGE CLERK BONE SCINTIGRAPHY (THREE-PHASE) Clinical indication: 47-year-old male, [...] * NM BONE SPECT (03/09/2018 2:52 PM MESSAGE CLERK) Specimen Impressions Performed At 1. No scintigraphic [...] Interface, Radiant Results - 03/09/2018 3:56 PM MESSAGE CLERK BONE SCINTIGRAPHY (THREE-PHASE) Clinical indication: 47-year-old male, [...]
--- OUTSIDE RECORDS SUMMARY | 2018-08-03 20:14 | XMS REPORT | Encounter Summary ---
Author Author [facility] Organization [facility] Address Unknown Phone Unavailable Care Team Providers Care Casting Operator Helper Name Role Phone Yana Chadwick MD 21 Shreyas Puentes MD 3 Eden Hennessy MD PCP Reason for Referral * Pain Authorization (Routine) Referred By Contact Referred To Contact Status Reason Specialty Diagnoses / Procedures Elizabeth Pollack APRN 4000 Sherley Cruz MD [facility] [place] [address] Zzicc Spn Anesth Pain [address] [place] [address] Closed Anesthesia Pain Diagnoses Complex regional pain syndrome type 1 of left lower extremity Neuropathic pain P rocedures [facility] Reason for Visit * Reason Comments Other 8 wk fuv Pain Pain Encounter Details Care Team Description Date Type Department Chapin Soto MD [address] [facility] [place] [address] [phone] Complex regional pain syndrome type 1 of left lower extremity (Primary Dx); Neuropathic pain 03/08/2018 Office Visit The [facility] [address] [place] [address] Social History Date Tobacco Use Types Packs/Day [...] - - Temperature 22 03/08/2018 2:43 PM VINEYARD WORKER Respiratory Rate - - Oxygen Saturation - - Inhaled Oxygen Concentration 123.8 kg (273 lb) 03/08/2018 2:43 PM VINEYARD WORKER Weight 170.2 cm (5' 7") 03/08/2018 2:43 PM VINEYARD WORKER Height 42.76 03/08/2018 2:43 PM VINEYARD WORKER Body Mass Index documented in this encounter [...] Chapin Soto MD - 03/08/2018 3:30 PM VINEYARD WORKER SPINE CENTER CLINIC NOTE SUBJECTIVE: Patient presents [...] by rest, prescribed medications Patient currently taking [place] 2 tabs, about 5-6 tabs per day, [...] is schedule a left lumbar sympathetic block YARD WORKER documented in this encounter Plan of Treatment [...]
--- OUTSIDE RECORDS SUMMARY | 2018-08-03 20:14 | XMS REPORT | Encounter Summary ---
Author Author [facility] Organization [facility] Address Unknown Phone Unavailable Care Team Providers Care Herbarium Worker Name Role Phone Yana Chadwick MD 21 Shreyas Puentes MD 3 Eden Hennessy MD PCP Reason for Visit * Reason Comments Medication Refill Encounter Details Care Team Description Date Type Department Leander Tovar MD [address] [facility] [address] [place] [phone] 02/04/2018 Refill [facility] [address] [place] [address] Social History Date Tobacco Use [...] Liane West, RN - 02/04/2018 10:24 AM NETWORK LIAISON Received refill request for methotrexate from pharmacy. Pt had recent office vis it with Dr. Tovar on 10/26/17 and has noted f/u appt on 02/23/18. Per documentat ion pt to continue methotrexate 15 mg weekly, recent lab testing noted. Okay to refill per protocol. Liane West, RN ORK LIAISON documented in this encounter Plan of Treatment Not on filedocumented as of this encounter Visit Diagnoses Not on filedocumented in this encounter
--- OUTSIDE RECORDS SUMMARY | 2018-08-03 20:14 | XMS REPORT | Encounter Summary ---
Author Author [facility] Organization [facility] Address Unknown Phone Unavailable Care Team Providers Care Junior Loan Processor Name Role Phone Yana Chadwick MD 21 Shreyas Puentes MD 3 Eden Hennessy MD PCP Reason for Visit * Reason Comments Medication Refill Encounter Details Care Team Description Date Type Department Leander Tovar MD 1999 [facility] Lvl [address] [place] [phone] 03/02/2018 Refill [facility] [address] [place] [address] Social History Date Tobacco Use [...] Beto Reynaga RN - 03/10/2018 11:26 AM COMPUTER TECHNOLOGY TEACHER Received lab results today - ok to refill MTX per protocol. UTER TECHNOLOGY TEACHER * Telephone Encounter - Mariam Nye RN - 03/10/2018 9:41 AM COMPUTER TECHNOLOGY TEACHER 03/07 Pt left message stating he received letter from [employer] upholding the decision to deny the PET [...] reports h e did last week at [facility] in [place]. Discussed we would call and r equest those and send refill if stable. Pt verbalizes understanding. Pt apprecia tive and had no further questions/concerns. UTER TECHNOLOGY TEACHER * Telephone Encounter - Beto Reynaga RN - 03/02/2018 2:36 PM COMPUTER TECHNOLOGY TEACHER Pt lvm requesting refill on MTX. Also [...] in on behal f of the pt. UTER TECHNOLOGY TEACHER documented in this encounter Plan of Treatment Not on filedocumented as of this encounter Visit Diagnoses Not on filedocumented in this encounter
--- OUTSIDE RECORDS SUMMARY | 2018-08-03 20:14 | XMS REPORT | Encounter Summary ---
Author Author [facility] Address Unknown Phone Unavailable Care Team Providers Care Electromechanical Assembler Name Role Phone Yana Chadwick MD 21 Shreyas Puentes MD 3 Eden Hennessy MD PCP Reason for Visit * Reason Comments Office Visit Follow Up FUV after inj, no change Encounter Details Care Team Description Date [place] [address] [facility] [address] [place], [place] [address] Complex regional pain syndrome type 2 of left lower extremity (Primary Dx); History of lipoma; Pain of left thigh; PSVT (paroxysmal supraventricular tachycardia) (HCC); Cardiac device in situ; Sarcoma (HCC) 03/03/2018 Office Visit [facility] [address] [address] Social History Date Tobacco Use Types Packs/Day [...] Comments Vital Sign 167/117 03/03/2018 9:29 AM MANUFACTURING JOB TITLES Blood Pressure 88 03/03/2018 9:29 AM MANUFACTURING JOB TITLES Pulse 37.2 C (98.9 F) 03/03/2018 9:29 AM MANUFACTURING JOB TITLES Temperature 16 03/03/2018 9:29 AM MANUFACTURING JOB TITLES Respiratory Rate 100% 03/03/2018 9:29 AM MANUFACTURING JOB TITLES Oxygen Saturation - - Inhaled Oxygen Concentration 123.8 kg (273 lb) 03/03/2018 9:29 AM MANUFACTURING JOB TITLES Weight 170.2 cm (5' 7") 03/03/2018 9:29 AM MANUFACTURING JOB TITLES Height 42.76 03/03/2018 9:29 AM MANUFACTURING JOB TITLES Body Mass Index documented in this encounter [...] Amanda Plummer RN - 03/03/2018 8:[address] Dr. Lexi Amezcua General Instructions: How to reach me: Please send a [employer] message to the Spine Center or leave a voicemail Amanda Plummer at [phone] How to get a medication refill: Please use the [employer] Refill request or cont act your pharmacy directly to request medication refills. How to receive your test results: If you have signed up for [employer], you will receive your test results and messages from me this way. Otherwise, you will get a phone call or letter. If you are expecting results and have not heard from my office within 2 weeks of your testing, please send a [employer] message or call my office. Scheduling: Our scheduling phone number if you are a Spine Center patient is [phone]. If you are a cancer center patient, please call the cancer center you go to for scheduling. Appointment Reminders on your cell phone: Make sure we have your cell phone n castroer, and Text [facility] to [phone]. Support for many chronic illnesses is available through [facility]: turnin [facility] or 757-436-9674. For questions on nights, weekends or holidays, call the dehydrogenation converter operator at , and ask for the doctor oncology nurse navigator for Physical Medicine and Rehab. FACTURING JOB TITLES documented in this encounter Progress Notes * Lexi Amezcua MD - 03/03/2018 8:30 AM MANUFACTURING JOB TITLES ONCOLOGY REHAB HISTORY AND PHYSICAL Chief Complaint Patient presents with Office Visit Follow Up FUV after inj, no change Subjective HISTORY OF PRESENT ILLNESS: Mr. Velásquez is a pleasant 47 y.o. male with a history of LLE lipoma s/p resection x 4 in [place] with the last in 2015 who is seen on 03/03/2018 at the [facility] for follow up evaluation and treatment of LLE pain following LLE sympathetic nerve block with Dr. Soto (12/28/17). At his last appointment, he was prescribed Cymbalta 60 mg daily and change from gabapentin to Lyrica. He was not able to get the Cymbalta covered from [employer] e, but did start on Lyrica 75 [...] LLE lipoma s/p re section x4 in [place] with the last in 2016. History and [...] halfway opioid mgmt at the spine center. Plan: [...] 2-3 weeks, t o review his images. FACTURING JOB TITLES documented in this encounter Plan of Treatment [...]
--- OUTSIDE RECORDS SUMMARY | 2018-08-03 20:14 | XMS REPORT | Encounter Summary ---
Author Author [facility] Organization [facility] Address Unknown Phone Unavailable Care Team Providers Care Upscale Security Officer Name Role Phone Yana Chadwick MD 21 Shreyas Puentes MD 3 Eden Hennessy MD PCP Encounter Details Care Team Description Date Type Department Cindy Swan RN 02/03/2018 Telephone [facility] [address] [place] [phone] Social History Date Tobacco Use Types Packs/Day [...] Cindy Swan RN - 02/03/2018 9:38 AM CLOTH PACKER received call from MIKI yesterday, unsure who called. appears it was CVM, sent flag to our schedulers to c/b H PACKER * Telephone Encounter - Cindy Swan RN - 02/03/2018 9:37 AM CLOTH PACKER ----- Message from Cherry Fabian LPN sent at 02/03/2018 9:04 AM CLOTH PACKER ----- Regarding: MPE- call VM from patient on triage line. He would like a call back. H PACKER documented in this encounter Plan of Treatment Not on filedocumented as of this encounter Visit Diagnoses Not on filedocumented in this encounter
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
--- OUTSIDE RECORDS SUMMARY | 2018-08-03 20:14 | XMS REPORT | Encounter Summary ---
Author Author [facility] Organization [facility] Address Unknown Phone Unavailable Care Team Providers Care Geoscience Professor Name Role Phone Yana Chadwick MD 21 Shreyas Puentes MD 3 Eden Hennessy MD PCP Reason for Visit * Reason Comments Medication Refill Encounter Details Care Team Description Date Type Department Leander Tovar MD [address] [facility] Lvl [address] [place] [phone] 03/06/2018 Refill [facility] [address] [place] [address] Social History Date Tobacco Use [...]
--- OUTSIDE RECORDS SUMMARY | 2018-08-03 20:14 | XMS REPORT | Encounter Summary ---
Author Author [facility] Organization [facility] Address Unknown Phone Unavailable Care Team Providers Care Research Manufacturing Operator Name Role Phone Yana Chadwick MD 21 Shreyas Puentes MD 3 Eden Hennessy MD PCP Reason for Visit * Radiology Services (Routine) Referred By Contact Referred To Contact Status Reason Specialty Diagnoses / [place] [address] [address] [place] [address] [place] [address] [address] [place] [address] No Auth Needed Radiology Diagnoses History of lipoma Sarcoma (HCC) Complex regional pain syndrome type 2 of left lower extremity P rocedures NM BONE SCAN WHOLEBODY NM BONE SCAN THREE PHASE Encounter Details Care Team Description Date Type [place] [address] [address] [place] [address] [phone] 03/09/2018 Hospital [facility] [address] [place], [place] [phone] Social History Date Tobacco Use Types Packs/Day [...] Routine 03/09/2018 History of lipoma 2:52 PM CUSTOMER SERVICE CLERK Sarcoma (HCC) Complex regional pain syndrome type 2 of left lower extremity NM BONE SCAN WHOLEBODY Routine 03/09/2018 History of lipoma 2:52 PM CUSTOMER SERVICE CLERK Sarcoma (HCC) Complex regional pain syndrome type 2 of left lower extremity documented in this encounter Results * NM BONE SCAN WHOLEBODY (03/09/2018 2:52 PM CUSTOMER SERVICE CLERK) Specimen Impressions Performed At 1. No [...] Interface, Radiant Results - 03/09/2018 3:56 PM CUSTOMER SERVICE CLERK BONE SCINTIGRAPHY (THREE-PHASE) Clinical indication: 47-year-old [...] Medication Order MAR Action 03/09/2018 10:50 AM CUSTOMER SERVICE CLERK 26.5 millicuries RP DX Tc-99m medronate (MDP) injection Given 25 millicurie 25 millicurie, Intravenous, ONCE, 1 dose, Wed03/09/18 at 1145 documented in this encounter
[2018-08-03] MEDS ORDERED: LACTATED RINGERS 1,000 ML IV SCH (20:15)
[2018-08-03] MEDS ORDERED: ONDANSETRON 4 MG/2 ML (SDV) Z0FRAN IVP ONE (20:15)
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
[2018-08-03] MEDS ORDERED: PROMETHAZINE INJ 25 MG/ML (PHENERGAN) AMP IM ONE (20:30)
[2018-08-03 21:13] VITALS: BP 151/101
--- OUTSIDE RECORDS SUMMARY | 2018-08-03 21:51 | XMS REPORT | Continuity of Care Document ---
Author Organization Unknown Address Unknown Allergies Active Description Code Type Severity Reaction Onset Reported/Identified Relationship to Patient Clinical Status Yes ASPIRIN UNKNOWN GI PROBLEMS - NAUSEA Yes PENICILLINS UNKNOWN DERMATOLOGICAL - BALA Yes WASP VENOM UNKNOWN UNKNOWN Yes XALATAN UNKNOWN UNKNOWN Yes aspirin [id number] Drug Allergy Unknown N/A 07/19/2014 Yes Penicillins [id number] Drug Allergy Unknown N/A 07/19/2014 Yes aspirin [id number] Drug Allergy Unknown N/A 07/19/2014 Yes Penicillins [id number] Drug Allergy Unknown N/A 07/19/2014 Yes aspirin [id number] Drug Allergy Moderate STOMACH ACHE 07/26/2018 Yes Penicillins [id number] Drug Allergy Moderate N/V 07/26/2018 Yes adhesive tape [id number] Drug Allergy Unknown N/A 07/26/2018 Yes latanoprost [id number] Drug Allergy Unknown N/A 07/26/2018 Yes lisinopril [id number] Drug Allergy Unknown N/A 07/26/2018 Medications Medication [...] DO Ot 785.0 08/04/2014 [facility] 272.4 08/04/2014 NWDONNWDanis [facility] Ot 278.01 08/04/2014 [facility]ITANYA [facility] Ot 401.9 08/04/2014 NWAGWU, [facility] Ot 424.0 08/04/2014 NWAGWU, [facility] Ot 785.0 08/18/2014 FELIBERTO MARTINEZ, [place] L Ot 401.9 08/18/2014 FELIBERTO MARTINEZ, [place] L Ot 682.6 08/18/2014 FELIBERTO MARTINEZ, [place] L Ot 729.5 08/18/2014 FELIBERTO MARTINEZ, [place] L Ot 998.13 08/18/2014 FELIBERTO MARTINEZ, [place] L Ot V58.69 08/24/2014 GELLENDER DO, CARYN A Ot 272.4 08/24/2014 GELLENDER DO, CARYN A Ot 401.9 08/24/2014 GELLENDER DO, CARYN A Ot 785.0 08/24/2014 NWAGWU, [facility] Ot 272.4 08/24/2014 NWAGWU, [facility] Ot 278.01 08/24/2014 NWAGWU, [facility] Ot 401.9 08/24/2014 NWAGWU, [facility] Ot 424.0 08/24/2014 NWAGWU, [facility] Ot 785.0 08/24/2014 [facility] Ot 338.18 08/24/2014 [facility] Ot 729.5 08/31/2014 [facility] Ot 305.90 08/31/2014 [facility] Ot 338.18 08/31/2014 [facility] Ot 729.5 08/31/2014 [facility] Ot V65.2 10/11/2014 GELLENDER DO, CARYN A Ot 272.4 10/11/2014 GELLENDER DO, CARYN A Ot 401.9 10/11/2014 GELLENDER DO, CARYN A Ot 785.0 10/11/2014 NWAGWU, [facility] Ot 272.4 10/11/2014 NWAGWU, [facility] Ot 278.01 10/11/2014 NWAGWU, [facility] Ot 401.9 10/11/2014 NWAGWU, [facility] Ot 424.0 10/11/2014 NWAGWU, [facility] Ot 785.0 10/22/2014 CERRITOS GENIA RICHTER Ot 782.2 10/22/2014 MONTANEZ GENIA [...] FACC, ALI FACP CCDS Ot Z79.899 OTHER BRAKER PASSENGER TRAIN (CURRENT) DRUG THERAPY 03/12/2015 SAJI BURNETT FACC, [...] Byrd Ot I25.10 ATHSCL HEART DISEASE OF [place] CORONARY 05/22/2015 VIVI BURNETT, FRANCISCO Byrd Ot [...] MD Ot I25.10 ATHSCL HEART DISEASE OF [place] CORONARY 10/02/2015 FRANCISCO TRINIDAD MD Ot S43.431A SUPERIOR GLENOID LABRUM LESION OF RIGHT 10/02/2015 FRANCISCO TRINIDAD MD Ot Z79.899 OTHER RETIREMENT (CURRENT) DRUG THERAPY 10/02/2015 FRANCISCO TRINIDAD MD Ot Z87.891 PERSONAL HISTORY OF NICOTINE DEPENDENCE 10/03/2015 FRANCISCO TRINIDAD MD, Ot E78.5 HYPERLIPIDEMIA, UNSPECIFIED 10/03/2015 FRANCISCO TRINIDAD MD, Ot F32.9 MAJOR DEPRESSIVE DISORDER, SINGLE EPISOD 10/03/2015 FRANCISCO TRINIDAD MD, Ot I10 ESSENTIAL (PRIMARY) HYPERTENSION 10/03/2015 FRANCISCO TRINIDAD MD, Ot I25.10 ATHSCL HEART DISEASE OF [place] CORONARY 10/03/2015 FRANCISCO TRINIDAD MD, Ot S43.431A SUPERIOR GLENOID LABRUM LESION OF RIGHT 10/03/2015 FRANCISCO TRINIDAD MD, Ot Z79.899 OTHER BRAKER PASSENGER TRAIN (CURRENT) DRUG THERAPY 10/03/2015 FRANCISCO TRINIDAD MD, [...] 02/21/2016 Laurence PANG MD, Ot Z79.899 OTHER RETIREMENT (CURRENT) DRUG THERAPY 02/24/2016 Ot E78.5 HYPERLIPIDEMIA, [...] CCDS Ot R00.2 PALPITATIONS 05/07/2016 SAJI MD [facility], ALI FACP CCDS Ot Z72.0 TOBACCO USE 05/07/2016 SAJI FACC, ALI FACP CCDS Ot Z95.0 PRESENCE OF CARDIAC PACEMAKER 05/13/2016 SAJI BURNETT [facility], ALI FACP CCDS Ot G47.33 OBSTRUCTIVE SLEEP APNEA (ADULT) (PEDIATR 05/13/2016 [facility], [facility] F[facility] CCDS Ot I10 ESSENTIAL (PRIMARY) HYPERTENSION 05/13/2016 SAJI BURNETT [facility], ALI FACP CCDS Ot I47.1 SUPRAVENTRICULAR TACHYCARDIA 05/13/2016 SAJI BURNETT [facility], ALI FACP CCDS Ot I49.5 SICK SINUS SYNDROME 05/13/2016 SAJI MD [facility], ALI FACP CCDS Ot R00.2 PALPITATIONS 05/13/2016 SAJI BURNETT [facility], ALI FACP CCDS Ot Z72.0 TOBACCO USE 05/13/2016 SAJI BURNETT [facility], ALI FACP CCDS Ot Z95.0 PRESENCE OF [...] SEROMA OF SKIN, SUBCU FOLLOWING 06/19/2016 [place] RGIFFITH Ot Z79.899 OTHER RETIREMENT (CURRENT) DRUG THERAPY 06/19/2016 [place] GRIFFITH Ot [...] PRESENCE OF CARDIAC PACEMAKER 03/03/2017 KAYLA KOENIG [facility] SAFETY SPECIALIST Ot E66.01 MORBID (SEVERE) OBESITY DUE TO EXCESS CA 03/03/2017 KAYLA KOENIG HEALTH SAFETY SPECIALIST Ot I10 ESSENTIAL (PRIMARY) HYPERTENSION 03/03/2017 KAYLA KOENIG [facility] SAFETY SPECIALIST Ot I47.1 SUPRAVENTRICULAR TACHYCARDIA 03/03/2017 KAYLA KOENIG [facility] SAFETY SPECIALIST Ot I47.2 VENTRICULAR TACHYCARDIA 03/03/2017 KAYLA KOENIG [facility] SAFETY SPECIALIST Ot I49.5 SICK SINUS SYNDROME 03/03/2017 KAYLA KOENIG [facility] SAFETY SPECIALIST Ot R00.2 PALPITATIONS 03/10/2017 [facility] Ot I47.2 VENTRICULAR TACHYCARDIA 03/10/2017 [facility] Ot I51.4 MYOCARDITIS, UNSPECIFIED 03/24/2017 [facility] Ot I47.2 VENTRICULAR TACHYCARDIA 03/24/2017 [facility] Ot I51.4 MYOCARDITIS, UNSPECIFIED 05/06/2017 Brown, Jarred [...] FACP CCDS Ot I47.2 VENTRICULAR TACHYCARDIA 05/19/2017 ASJI BURNETT FACC, ALI FACP CCDS Ot Z95.0 [...] FACP CCDS Ot I47.1 SUPRAVENTRICULAR TACHYCARDIA 05/19/2017 ASJI BURNETT FACC, ALI FACP CCDS Ot I47.2 VENTRICULAR TACHYCARDIA 05/19/2017 SAJI BRADLEYC, ALI FACP CCDS Ot Z72.0 TOBACCO USE 05/19/2017 SAJI BURNETT FACC, ALI FACP CCDS Ot Z95.0 PRESENCE OF CARDIAC PACEMAKER 05/19/2017 KAYLA KOENIG HE[facility] SAFETY SPECIALIST Ot E66.01 MORBID (SEVERE) OBESITY DUE TO EXCESS CA 05/19/2017 JAMILAHKAYLA SORIANO HEALTH SAFETY SPECIALIST Ot I10 ESSENTIAL (PRIMARY) HYPERTENSION 05/19/2017 KAYLA KOENIG HEALTH SAFETY SPECIALIST Ot I47.1 SUPRAVENTRICULAR TACHYCARDIA 05/19/2017 KAYLA KOENIG [facility] SAFETY SPECIALIST Ot I47.2 VENTRICULAR TACHYCARDIA 05/19/2017 KAYLA KOENIG [facility] SAFETY SPECIALIST Ot I49.5 SICK SINUS SYNDROME 05/19/2017 KAYLA KOENIG [facility] SAFETY SPECIALIST Ot R00.2 PALPITATIONS 05/19/2017 [facility] Ot I47.2 VENTRICULAR TACHYCARDIA 05/19/2017 [facility] Ot I51.4 MYOCARDITIS, UNSPECIFIED 05/19/2017 JESUS BURNETT, [...] FACP CCDS Ot I47.2 VENTRICULAR TACHYCARDIA 07/08/2017 [facility] FAC, ALI FACP CCDS Ot Z72.0 TOBACCO USE 07/08/2017 SAJI MD FACC, ALI FACP CCDS Ot Z95.0 PRESENCE OF CARDIAC PACEMAKER 07/08/[address] [facility] [place] [place], ALI FACP CCDS Ot E66.8 OTHER OBESITY 07/08/2017 SAJI MD FAC, ALI FACP CCDS Ot G47.33 OBSTRUCTIVE SLEEP APNEA (ADULT) (PEDIATR 07/08/2017 SAJI BURNETT [facility], ALI FACP CCDS Ot I10 ESSENTIAL (PRIMARY) HYPERTENSION 07/08/2017 [facility], ALI FACP CCDS Ot I47.1 SUPRAVENTRICULAR TACHYCARDIA 07/08/[address] [facility] [place] [place], ALI FACP CCDS Ot I47.2 VENTRICULAR TACHYCARDIA 07/08/2017 [facility], ALI FACP CCDS Ot Z72.0 TOBACCO USE 07/08/2017 [facility], ALI FACP CCDS Ot Z95.0 PRESENCE OF CARDIAC PACEMAKER 07/08/2017 KAYLA KOENIG [facility] SAFETY SPECIALIST Ot E66.01 MORBID (SEVERE) OBESITY DUE TO EXCESS CA 07/08/2017 KAYLA KOENIG L HEALTH SAFETY SPECIALIST Ot I10 ESSENTIAL (PRIMARY) HYPERTENSION 07/08/2017 KAYLA KOENIG HEALTH SAFETY SPECIALIST Ot I47.1 SUPRAVENTRICULAR TACHYCARDIA 07/08/2017 KAYLA KOENIG L HEALTH SAFETY SPECIALIST Ot I47.2 VENTRICULAR TACHYCARDIA 07/08/2017 KAYLA KOENIG L HEALTH SAFETY SPECIALIST Ot I49.5 SICK SINUS SYNDROME 07/08/2017 KAYLA KOENIG [facility] SAFETY SPECIALIST Ot R00.2 PALPITATIONS 07/08/2017 [facility] Ot I47.2 VENTRICULAR TACHYCARDIA 07/08/2017 [facility] Ot I51.4 MYOCARDITIS, UNSPECIFIED 07/08/2017 JESUS BURNETT, [...] BRONCHITIS, NOT SPECIFIED ACUTE OR CH 02/04/2018 PAHM BLACKMON APRN Ot M19.011 PRIMARY OSTEOARTHRITIS, RIGHT SHOULDER 02/04/2018 PHAM BLACKMON APRN Ot Z85.828 PERSONAL HISTORY OF OTHER MALIGNANT NEOP 02/04/2018 PHAM BLACKMON APRN Ot Z87.09 PERSONAL HISTORY OF OTHER DISEASES OF TH 02/04/2018 [facility] Ot Z87.891 PERSONAL HISTORY OF NICOTINE DEPENDENCE 02/04/2018 [facility] Ot Z88.0 ALLERGY STATUS TO PENICILLIN 02/04/2018 [facility] Ot Z88.6 ALLERGY STATUS TO ANALGESIC AGENT STATUS 02/04/2018 [facility] Ot Z92.21 PERSONAL HISTORY OF ANTINEOPLASTIC CHEMO 02/04/2018 [facility] Ot Z95.0 PRESENCE OF CARDIAC PACEMAKER 02/04/2018 [...] I10 ESSENTIAL (PRIMARY) HYPERTENSION 02/04/2018 SAJI BURNETT [facility], ALI FACP CCDS Ot I47.1 SUPRAVENTRICULAR TACHYCARDIA 02/04/2018 SAJI BURNETT [facility], ALI FACP CCDS Ot I47.2 VENTRICULAR TACHYCARDIA 02/04/2018 SAJI BURNETT FAC, ALI FACP CCDS Ot Z72.0 TOBACCO USE 02/04/2018 SAJI BURNETT [facility], ALI FACP CCDS Ot Z95.0 PRESENCE OF CARDIAC PACEMAKER 02/04/2018 KAYLA KOENIG HEALTH SAFETY SPECIALIST Ot E66.01 MORBID (SEVERE) OBESITY DUE TO EXCESS CA 02/04/2018 KAYLA KOENIG L HEALTH SAFETY SPECIALIST Ot I10 ESSENTIAL (PRIMARY) HYPERTENSION 02/04/2018 KAYLA KOENIG HEALTH SAFETY SPECIALIST Ot I47.1 SUPRAVENTRICULAR TACHYCARDIA 02/04/2018 KAYLA KOENIG HEALTH SAFETY SPECIALIST Ot I47.2 VENTRICULAR TACHYCARDIA 02/04/2018 KAYLA KOENIG HEALTH SAFETY SPECIALIST Ot I49.5 SICK SINUS SYNDROME 02/04/2018 KAYLA KOENIG HEALTH SAFETY SPECIALIST Ot R00.2 PALPITATIONS 02/04/2018 [facility] Ot I47.2 VENTRICULAR TACHYCARDIA 02/04/2018 [facility] Ot I51.4 MYOCARDITIS, UNSPECIFIED 02/04/2018 JESUS BURNETT, [...] R05 COUGH 02/10/2018 SAI YAÑEZIS Ot Z79.51 BRAKER PASSENGER TRAIN (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 OF INHALED STERO 02/10/2018 KRYSTEN [...] R05 COUGH 02/14/2018 KRYSTEN YAÑEZ Ot Z79.51 BRAKER PASSENGER TRAIN (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 OF INHALED STERO 02/14/2018 KRYSTEN YAÑEZ Ot Z86.79 PERSONAL HISTORY OF OTHER DISEASES OF TH 02/14/2018 KRYSTEN YAÑEZ Ot Z87.891 PERSONAL HISTORY OF [...] INITIAL ENCOUNTER 04/12/2018 KRYSTEN YAÑEZ Ot Z79.51 BRAKER PASSENGER TRAIN (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 OF INHALED STERO 04/12/2018 KRYSTEN [...] Ot I47.2 VENTRICULAR TACHYCARDIA 04/12/2018 SAJI BURNETT [facility], ALI FACP CCDS Ot Z72.0 TOBACCO USE 04/12/2018 SAJI BURNETT [facility], ALI FACP CCDS Ot Z95.0 PRESENCE OF CARDIAC PACEMAKER 04/12/2018 KAYLA KOENIG HEALTH SAFETY SPECIALIST Ot E66.01 MORBID (SEVERE) OBESITY DUE TO EXCESS CA 04/12/2018 KAYLA KOENIG L HEALTH SAFETY SPECIALIST Ot I10 ESSENTIAL (PRIMARY) HYPERTENSION 04/12/2018 KAYLA KOENIG HEALTH SAFETY SPECIALIST Ot I47.1 SUPRAVENTRICULAR TACHYCARDIA 04/12/2018 KAYLA KOENIG L HEALTH SAFETY SPECIALIST Ot I47.2 VENTRICULAR TACHYCARDIA 04/12/2018 KAYLA KOENIG HEALTH SAFETY SPECIALIST Ot I49.5 SICK SINUS SYNDROME 04/12/2018 KAYLA KOENIG HEALTH SAFETY SPECIALIST Ot R00.2 PALPITATIONS 04/12/2018 [facility] Ot I47.2 VENTRICULAR TACHYCARDIA 04/12/2018 [facility] Ot I51.4 MYOCARDITIS, UNSPECIFIED 04/12/2018 JESUS BURNETT, [...] INITIAL ENCOUNTER 04/14/2018 KRYSTEN YAÑEZ Ot Z79.51 RETIREMENT (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 OF INHALED STERO 04/14/2018 KRYSTEN [...] Ot M19.011 PRIMARY OSTEOARTHRITIS, RIGHT SHOULDER 06/02/2018 ADVID BEAR MD Ot R51 HEADACHE 06/02/2018 DAVID [...] PRESENCE OF CARDIAC PACEMAKER 07/26/2018 KAYLA KOENIG HEALTH SAFETY SPECIALIST Ot E66.01 MORBID (SEVERE) OBESITY DUE TO EXCESS CA 07/26/2018 KAYLA KOENIG HEALTH SAFETY SPECIALIST Ot I10 ESSENTIAL (PRIMARY) HYPERTENSION 07/26/2018 KAYLA KOENIG HEALTH SAFETY SPECIALIST Ot I47.1 SUPRAVENTRICULAR TACHYCARDIA 07/26/2018 KAYLA KOENIG HEALTH SAFETY SPECIALIST Ot I47.2 VENTRICULAR TACHYCARDIA 07/26/2018 KAYLA KOENIG HEALTH SAFETY SPECIALIST Ot I49.5 SICK SINUS SYNDROME 07/26/2018 KAYLA KOENIG HEALTH SAFETY SPECIALIST Ot R00.2 PALPITATIONS 07/26/2018 [facility] Ot I47.2 VENTRICULAR TACHYCARDIA 07/26/2018 [facility] Ot I51.4 MYOCARDITIS, UNSPECIFIED 07/26/2018 JESUS BURNETT, [...] I10 ESSENTIAL (PRIMARY) HYPERTENSION 07/27/2018 SAJI BURNETT [facility], ALI FACP CCDS Ot 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 07/27/2018 SAJI BURNETT [facility], ALI FACP CCDS Ot I47.2 VENTRICULAR TACHYCARDIA 07/27/2018 SAJI BURNETT [facility], ALI FACP CCDS Ot I49.5 SICK SINUS SYNDROME 07/27/2018 SAJI BRADLEY, ALI FACP CCDS Ot R42 DIZZINESS AND GIDDINESS 07/27/2018 ASJI BURNETT [facility], ALI FACP CCDS Ot Z68.41 BODY MASS INDEX (BMI) 40.0-44.9, ADULT 07/27/2018 SAJI BURNETT [facility], ALI FACP CCDS Ot Z95.0 PRESENCE OF CARDIAC PACEMAKER 07/28/2018 MELANIE BURNETT, JOE Ot I10 ESSENTIAL (PRIMARY) HYPERTENSION Procedures Code Description Performed By Performed On [id number] INSERT OF MONITOR DEV INTO CHEST SUBCU/F 03/12/2015 [id number] MEASURE OF CARDIAC SAMPL PRESSURE, L H 03/12/2015 [id number] FLUOROSCOPY OF MULT COR ART USING L OSM 03/12/2015 [id number] FLUOROSCOPY OF LEFT HEART USING LOW OSMO 03/12/2015 [id number] FLUOROSCOPY OF THORACIC AORTA USING LOW 03/12/2015 [...] 17:29 Bacteria identification in wound by culture [id number] NRG QUANTITY OF GROWTH Scant Growth NRG Gram stain microscopy - 06/19/16 22:02 GRAM STAIN RESULT NO WBC'S OR BACTERIA OBSERVED NRG Bacteria identification in wound by culture - 06/19/16 22:02 Bacteria identification in wound by culture [id number] NR QUANTITY OF GROWTH Moderate Growth NRG Gram stain microscopy - 06/19/16 23:16 GRAM STAIN RESULT NO WBC'S OR BACTERIA OBSERVED NRG Bacteria identification in wound by culture - 06/19/16 23:16 Bacteria identification in wound by culture [facility] Influenza virus A and B [...] 10:30 Serum aldolase measurement 5.2 U/L 1.5-8.1 [id number] - 03/09/17 10:30 Screening antinuclear antibody (SERENA) assay by enzyme immunoassay <1:80 <1:80 Serum DNA double strand antibody detection - 03/09/17 10:30 Serum DNA double strand antibody assay (units/volume) 29 [iU]/mL 0-300 Cerebrospinal fluid cytomegalovirus IgG and IgM panel - 03/09/17 10:30 [id number] Negative Negative Serum cytomegalovirus IgM antibody assay [...] IgM antibody assay (units/volume) 2.14 % 0.00-0.89 [id number] - 03/09/17 10:30 Serum herpes simplex virus (HSV) type 2 IgM antibody detection <1:10 <1:10 [id number] - 03/09/17 10:30 [id number] Negative Negative Human immunodeficiency virus (HIV) type [...] consultation and report SEE PATH REPORT NRG [id number] - 03/09/17 10:30 Serum tissue transglutaminase IgA [...] nuclear antibody assay (units/volume) - 03/09/17 10:30 [id number] Negative Negative Serum Lei extractable nuclear antigen (YANIV) antibody assay (units/volume) < U 0-19 Ribonucleic protein (CRANKSHAFT GRINDER) ab - 03/09/17 10:30 Ribonucleic protein antibody assay <20 0-19 HSV 1T2 PCR (BLOOD/FLUID) - 03/09/17 10:30 Herpes simplex virus (HSV) type 1 DNA detection by polymerase chain reaction Not Detected NOT DET Herpes simplex virus (HSV) type 2 DNA detection by PCR Not Detected NOT DET Lysozyme measurement - 03/09/17 10:30 Lysozyme measurement 8.4 ug/mL 5.0-11.0 [id number] - 03/09/17 10:30 Russel Davila virus DNA [...] 03/09/17 10:34 * Reference lab test results MPO/IL-3 ANCA AB NR * Reference lab test [...] - 06/18/17 13:04 ABSOLUTE NEUTROPHILS 3080 cells/uL 7735-9762 ABSOLUTE MONOCYTES 448 cells/uL 200-950 ABSOLUTE EOSINOPHILS [...] - 07/21/17 11:32 ABSOLUTE NEUTROPHILS 4992 cells/uL 5629-7549 ABSOLUTE MONOCYTES 858 cells/uL 200-950 ABSOLUTE EOSINOPHILS 0 cells/uL 15-500 ABSOLUTE BASOPHILS 0 cells/uL 0-200 NEUTROPHILS 64.0 % NRG LYMPHOCYTES 25.0 % NRG MONOCYTES 11.0 % NRG EOSINOPHILS 0 % NRG BASOPHILS 0 % NRG ABSOLUTE LYMPHOCYTES 1950 cells/uL 850-3900 PLATELET ESTIMATION ADEQUATE ADEQUATE DIFFERENTIAL, MANUAL - 09/07/17 10:45 ABSOLUTE NEUTROPHILS 3913 cells/uL 2443-7130 ABSOLUTE MONOCYTES 663 cells/uL 200-950 ABSOLUTE EOSINOPHILS [...] - 09/14/17 12:34 MAGNESIUM 2.5 mg/dL 1.5-2.5 [facility] - 09/20/17 12:10 GLUCOSE 81 mg/dL 65-99 UREA NITROGEN (BUN) 22 mg/dL 7-25 CREATININE 1.56 mg/dL 0.60-1.35 eGFR NON-AFR. [place] 52 mL/min/1.73m2 > OR=60 eGFR 61 mL/min/1.73m2 > OR=60 BUN/CREATININE RATIO 14 (calc) 6-22 SODIUM 141 mmol/L 135-146 POTASSIUM 3.9 mmol/L 3.5-5.3 CHLORIDE 113 mmol/L 98-110 CARBON DIOXIDE 27 mmol/L 20-32 CALCIUM 9.3 mg/dL 8.6-10.3 [facility] - 09/23/17 11:28 GLUCOSE 103 mg/dL 65-99 UREA NITROGEN (BUN) 16 mg/dL 7-25 CREATININE 1.25 mg/dL 0.60-1.35 eGFR NON-AFR. [place] 68 mL/min/1.73m2 > OR=60 eGFR 79 mL/min/1.73m2 [...] - 11/17/17 16:30 ABSOLUTE NEUTROPHILS 6780 cells/uL 8409-3337 ABSOLUTE MONOCYTES 501 cells/uL 200-950 ABSOLUTE EOSINOPHILS [...] - 12/29/17 10:59 ABSOLUTE NEUTROPHILS 4655 cells/uL 5108-4776 ABSOLUTE MONOCYTES 459 cells/uL 200-950 ABSOLUTE EOSINOPHILS [...] - 01/21/18 10:18 ABSOLUTE NEUTROPHILS 4658 cells/uL 7601-4092 ABSOLUTE MONOCYTES 878 cells/uL 200-950 ABSOLUTE EOSINOPHILS [...] 7-25 CREATININE 1.10 mg/dL 0.60-1.35 eGFR NON-AFR. [place] 80 mL/min/1.73m2 > OR=60 eGFR 92 mL/min/1.73m2 [...] (mass/volume) 9.1 mg/dL 8.5-10.1 Radiology Report from [facility] on 10/30/2011 14:50:00 DIAGNOSTIC IMAGING REPORT [facility] - [address] [address] PHONE #: [phone] FAX #: [phone] Name: GAMA MATSON Loc: [facility] Radiology No: [id number] : 1970 Age: 41 Sex: M Status: REG CLI Unit No: [id number] Phys: Analisa Hodges MD Acct: [id number] Reason For Exam: EDEMA/LT LEG VENOUS Exam Date: 10/30/2011 EXAMS: CPT CODE: [id number] DOPPLER EXTR VENOUS LMTD 71764 REASON FOR EXAM: left lower extremity pain [...] or corrected the resident physician's interpretation. at 8487 RESIDENT: NAEEM CASTELLANO DO Reported and signed by: SHANKIA NAVARRO MD CC: Analisa Ha MD Technologist: CRISTHIAN MARQUEZ Transcribed Date/Time: 10/30/2011 (3468)Barrel Charrer: MIKE Printed Date/Time: 10/30/2011 (5499) BATCH NO: N/A PAGE 1 Signed Report Radiology Report from [facility] on 12/20/2012 17:07:00 DIAGNOSTIC IMAGING REPORT [facility] - [address] [address] PHONE #: [phone] FAX #: [phone] Name: GAMA MATSON Loc: [facility] Radiology No: [id number] : 1970 Age: 42 Sex: M Status: REG CLI Unit No: [id number] Phys: Analisa Hodges MD Acct: [id number] Reason For Exam: LEG PAIN Exam Date: 12/20/2012 EXAMS: CPT CODE: [id number] MRI FEMUR LEFT W W/O 35565 TIME OF EXAM: 12/20/2012 12:30 PM REASON FOR EXAM: LEG PAIN . History of a lipoma that was previously excised in the upper left leg in 2004. COMPARISON: 07/23/2008 MRI of the left femur. TECHNIQUE: Multiplanar multisequence yek-ihx-duuh contrast enhanced MRI of the left femur [...] MD Technologist: JACKSON CARUSO Transcribed Date/Time: 12/20/2012 (1707)Barrel Charrer: [email or web address] Printed Date/Time: 12/20/2012 (1804) BATCH NO: N/A PAGE 1 Signed Report Radiology Report from [facility] on 12/20/2012 17:08:00 DIAGNOSTIC IMAGING REPORT [facility] - [address] [address] PHONE #: [phone] FAX #: [phone] Name: HUYENGAMA OLVIN Loc: [facility] Radiology No: [id number] : 1970 Age: 42 Sex: M Status: REG I Unit No: [id number] Phys: Analisa Hodges MD Acct: [id number] Reason For Exam: LEG PAIN Exam Date: 12/20/2012 EXAMS: CPT CODE: [id number] MRI TIB/FIB LEFT W W/O 52271 REASON FOR EXAM: LEG PAIN . History of a lipoma that was previously excised in the upper left leg in 2004. TIME OF THE CURRENT EXAMINATION: 12/20/2012 12:30 PM COMPARISON: None TECHNIQUE: Multiplanar multisequence tnm-gyz-jzfz contrast enhanced MRI of the left tibia-fibula [...] MD Technologist: JACKSON CARUSO Transcribed Date/Time: 12/20/2012 (170)Barrel Charrer: MYRIAM Printed Date/Time: 12/20/2012 (1553) BATCH NO: N/A PAGE 1 Signed Report Encounters ACCT No. Visit Date/Time Discharge Status Pt. Type Provider Facility Loc./Unit Complaint [id number] 05/16/2018 07:49:00 05/16/2018 07:49:00 CAN Outpatient THIEN ORTIZ [id number] 05/06/2017 21:48:00 05/06/2017 23:30:00 DIS Outpatient Jarred Fletcher [id number] 05/06/2017 22:17:02 Document Registration [id number] 12/20/2012 09:52:00 12/20/2012 09:52:00 DIS Outpatient Analisa Ha MD [facility] W.PEDRITO [id number] 10/30/2011 08:11:00 10/30/2011 08:11:00 DIS Outpatient Analisa Ha MD [facility] W.JUDITH [id number] 07/13/2018 13:00:00 07/13/2018 23:59:59 [facility] Outpatient ALENA ÁLVAREZ [facility] [id number] 05/11/2018 16:20:00 Document Registration [id number] 01/21/2018 10:20:00 Document Registration [id number] 12/29/2017 11:00:00 Document Registration [id number] 11/17/2017 16:20:00 Document Registration [id number] 2017 10:40:00 Document Registration [id number] 09/20/2017 11:20:00 Document Registration [id number] 09/14/2017 12:20:00 Document Registration [id number] 09/07/2017 10:20:00 Document Registration [id number] 07/21/2017 12:00:00 Document Registration [id number] 06/18/2017 13:00:00 Document Registration [id number] 05/12/2017 11:00:00 Document Registration [id number] 12/09/2014 10:05:00 12/09/2014 10:53:00 DIS Emergency CONNOR PAULSON MD [facility] ER [id number] 12/08/2014 20:41:00 12/09/2014 05:24:00 DIS [facility] SLEEP [id number] 11/12/2014 16:10:00 11/12/2014 23:59:59 [facility]LS Outpatient [facility] RAD [id number] 11/07/2014 20:53:00 11/08/2014 06:06:00 DIS Outpatient [facility] SLEEP [id number] 10/11/2014 13:04:00 10/11/2014 23:59:59 CLS Outpatient GENIA MONTANEZ DO [facility] RAD [id number] 08/31/2014 16:06:00 08/31/2014 18:49:00 DIS Emergency [facility] ER [id number] 08/24/2014 22:00:00 08/24/2014 23:52:00 DIS Emergency [facility] ER [id number] 08/18/2014 11:44:00 08/18/2014 14:10:00 DIS Emergency ALEXANDRIA GRIFFITH [facility] ER [id number] 07/19/2014 09:15:00 07/19/2014 23:59:59 CLS Out[facility] CARD [id number] 06/13/2014 08:38:00 06/13/2014 23:59:59 CLS Outpatient CARYN AVILES DO [facility] LAB [id number] 08/03/2018 08:28:00 08/03/2018 14:05:00 DIS Outpatient FRANCISCO TRINIDAD MD [facility] SDC LEFT KNEE MEDIAL MENISCUS TEAR [id number] 07/26/2018 14:12:00 07/26/2018 23:59:59 CLS Outpatient JOE NAVARRO MD [facility] LAB RESISTANT HYPERTENSION [id number] 07/26/2018 13:16:00 07/26/2018 14:16:00 DIS Outpatient FRANCISCO TRINIDAD MD [facility] PREOP LEFT KNEE MEDIAL MENISCUS TEAR [id number] 07/13/2018 13:13:00 07/13/2018 23:59:59 CLS Outpatient SAJI BURNETT FACC, [employer] CCDS [facility] LAB I10,R42 [id number] 06/02/2018 13:36:00 06/02/2018 17:32:00 DIS Emergency DAVID BEAR MD [facility] ER HIGH BP; L ARM NUMBNESS [id number] 05/05/2018 11:49:00 05/05/2018 23:59:59 CLS Outpatient ALENA ÁLVAREZ MD [facility] LAB I10 [id number] 05/04/2018 12:07:00 05/04/2018 23:59:59 CLS Outpatient ALENA ÁLVAREZ MD [facility] LAB HTN [id number] 04/12/2018 18:11:00 04/12/2018 19:08:00 DIS Emergency KRYSTEN YAÑEZ [facility] ER LEFT LEG PAIN [id number] 02/10/2018 17:39:00 02/10/2018 19:05:00 DIS Emergency KRYSTEN YAÑEZ [facility] ER COUGH,DIARRHEA [id number] 02/04/2018 13:37:00 02/04/2018 14:20:00 DIS Emergency PHAM BLACKMON APRN [facility] ER RUNNY NOSE;SORE THROAT [id number] 07/08/2017 20:28:00 07/08/2017 21:33:00 DIS Emergency PHAM BLACKMON APRN [facility] ER EAR INFECTION/RESP INFECTION [id number] 05/14/2017 13:48:00 05/14/2017 23:59:59 CLS Outpatient PAMELA LEE MD [facility] RAD R05 [id number] 03/09/2017 09:15:00 03/09/2017 23:59:59 CLS Outpatient [facility] LAB I51.4,I47.2 [id number] 02/19/2017 12:01:00 02/19/2017 23:59:59 CLS Outpatient KAYLA [facility]IST [facility] LAB I10 I49.5 R00.2 I47.2 E66.01 [id number] 02/19/2017 10:08:00 02/19/2017 23:59:59 CLS Outpatient SAJI BURNETT FAC, ALI FACP CCDS [facility] CARD I47.2 NSVT [id number] 02/04/2017 07:26:00 02/04/2017 23:59:59 CLS Outpatient SAJI BURNETT FACAnalisa, ALI FACP CCDS [facility] CARD I47.2 NSVT [id number] 12/17/2016 11:54:00 12/17/2016 23:59:59 CLS Outpatient SAJI BURNETT FAC, ALI FACP CCDS [facility] RAD 147.2 Z95.0 [id number] 11/13/2016 10:56:00 11/13/2016 23:59:59 CLS Outpatient FRITZ HELMS MD [facility] RAD TUMOR OF SOFT TISSUE [id number] 06/19/2016 20:19:00 06/19/2016 23:17:00 DIS Emergency ALEXANDRIA GRIFFITH [facility] ER POST OP/L LEG INCISION BLEEDING [id number] 06/05/2016 17:18:00 06/05/2016 18:14:00 DIS Emergency [facility] LEFT LEG WOUND OPENED [id number] 05/01/2016 09:19:00 05/01/2016 23:59:59 CLS Outpatient SAJI BURNETT FACAnalisa, RANCHO INGRAM CCDS [facility] HTN,PALPITATIONS,PSVT,MELI [id number] 03/25/2016 06:15:00 03/25/2016 11:23:00 DIS Outpatient FRANCISCO TRINIDAD MD [facility] RIGHT SHOULDER PRIMARY OA [id number] 03/18/2016 09:16:00 03/18/2016 11:00:00 DIS Outpatient FRANCISCO TRINIDAD MD [facility] PREOP RIGHT SHOULDER PRIMARY OA [id number] 02/20/2016 07:39:00 02/21/2016 13:30:00 DIS Outpatient Laurence PANG MD [facility] CATH SEVERE DOMINICK [id number] 10/02/2015 10:15:00 10/02/2015 14:55:00 DIS Outpatient FRANCISCO TRINIDAD MD [facility] RIGHT LABRAL TEAR [id number] 09/26/2015 10:59:00 09/26/2015 11:26:00 DIS Outpatient FRANCISCO TRINIDAD MD [facility] PREOP RIGHT LABRAL TEAR [id number] 05/22/2015 09:00:00 05/22/2015 15:00:00 DIS Outpatient FRANCISCO TRINIDAD MD [facility] TORN ROTATOR RAKESH [id number] 05/17/2015 10:19:00 05/17/2015 11:48:00 DIS Outpatient FRANCISCO TRINIDAD MD [facility] PREOP TORN ROTATOR RAKESH [id number] 04/16/2015 13:07:00 04/16/2015 23:59:59 CLS Outpatient GENIA MONTANEZ DO [facility] RAD LT THIGH MASS AND PAIN [id number] 03/12/2015 08:56:00 03/12/2015 23:59:59 CLS Outpatient SAJI BURNETT FACAnalisa, RANCHO INGRAM CCDS [facility] CATH CAD,HLP,TACHYCARDIA,PALPITATIONS [id number] 02/14/2015 13:02:00 02/14/2015 14:49:00 DIS Emergency LOREEN BURNETT, CONNOR Matthew [facility] ER CHEST PAIN [id number] 08/03/2018 20:02:00 ACT Emergency PHAM BLACKMON APRN [facility] ER VOMITING,NAUSEA [id number] 03/01/2015 14:26:00 Document Registration [id number] 12/09/2014 10:05:00 Document Registration [id number] 12/08/2014 20:41:00 Document Registration [id number] 11/07/2014 20:53:00 Document Registration
== END 2018-08-03 21:18 | disposition home or self-care (01) ==
LOC: EDUNIT# 20:01 → ER 20:02
DX: T81.89XA Other complications of procedures, not elsewhere classified, initial encounter (principal); R11.2 Nausea with vomiting, unspecified; G47.30 Sleep apnea, unspecified; I10 Essential (primary) hypertension; E78.00 Pure hypercholesterolemia, unspecified; G43.909 Migraine, unspecified, not intractable, without status migrainosus; M19.011 Primary osteoarthritis, right shoulder; F43.10 Post-traumatic stress disorder, unspecified; F41.9 Anxiety disorder, unspecified; F91.3 Oppositional defiant disorder; Z85.828 Personal history of other malignant neoplasm of skin; Z88.0 Allergy status to penicillin; Z88.6 Allergy status to analgesic agent; Z88.7 Allergy status to serum and vaccine; Z88.8 Allergy status to other drugs, medicaments and biological substances; Z77.22 Contact with and (suspected) exposure to environmental tobacco smoke (acute) (chronic); Z95.0 Presence of cardiac pacemaker
CPT/HCPCS: 96372; 99284

== ENCOUNTER 2018-08-29 14:23 | Emergency (ER) | payer MEDICAID ==
[~2018-08-29] VITALS: Ht 170.2 cm; Wt 139.9 kg
[2018-08-29] MEDS ORDERED: KETOROLAC 30 MG/ML VIAL IM ONE (14:45)
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
[2018-08-29 15:00] VITALS: BP 181/111
--- OUTSIDE RECORDS SUMMARY | 2018-08-29 23:08 | XMS REPORT | Encounter Summary ---
Author Author [facility] Organization [facility] Address Unknown Phone Unavailable Care Team Providers Care Community Marketing Manager Name Role Phone Yana Chadwick MD 21 Shreyas Puentes MD 3 Eden Hennessy MD PCP Encounter Details Care Team Description Date Type Department Alejandro West RN Sinus node dysfunction (HCC) (Primary Dx); PSVT (paroxysmal supraventricular tachycardia) (HCC); NSVT (nonsustained ventricular tachycardia) (HCC); Cardiac device in situ 08/25/2018 Orders Only [facility] [address] [place] [address] Social History Date Tobacco Use Types Packs/Day [...] Schedule Name Type Priority Associated Diagnoses Expected: 09/12/2018, Expires: 08/26/2019 DEVICE EVALUATION - PPM Device Check Routine Sinus node dysfunction (HCC) PSVT (paroxysmal supraventricular tachycardia) (HCC) NSVT (nonsustained ventricular tachycardia) (HCC) Cardiac device in situ documented as of this encounter Visit Diagnoses Diagnosis Sinus node dysfunction (HCC) - Primary Sinoatrial node dysfunction PSVT (paroxysmal supraventricular tachycardia) (HCC) Paroxysmal supraventricular tachycardia NSVT (nonsustained ventricular tachycardia) (HCC) Paroxysmal ventricular tachycardia Cardiac device in situ Unspecified cardiac device in situ documented in this encounter
--- OUTSIDE RECORDS SUMMARY | 2018-08-29 23:08 | XMS REPORT | Encounter Summary ---
Author Author [facility] Organization [facility] Address Unknown Phone Unavailable Care Team Providers Care Bottle Washer Machine Name Role Phone Yana Chadwick MD 21 Shreyas Puentes MD 3 Eden Hennessy MD PCP Reason for Visit * Reason Comments Follow-up Phone Call Need for ICD Encounter Details Care Team Description Date Type Department Merary Fields RN Follow-up Phone Call (Need for ICD) 08/24/2018 Telephone The [address] [place] [address] Social History Date Tobacco Use Types Packs/Day [...] encounter Miscellaneous Notes * Telephone Encounter - Merary Fields RN - 08/24/2018 5:05 PM CDT Reviewed with MPTrung. He is recommending an office visit to discuss. OK to work in. MyChart message sent to the patient. * Telephone Encounter - Merary Fields RN - 08/24/2018 3:43 PM CDT Jyotsna Alvarez RN Sack, Claire, RN We do follow. From Apr 07 to Jul 12, No new events. He has to send manual for us to see beyomiracle Connors 4. I documented. * Telephone Encounter - Merary Fields RN - 08/24/2018 1:40 PM CDT In regards to the patient's Mychart message: "I scene dr. Sanchez and he made the recommendation that they take out my pacemaker and put in a defibrillator due to I still have episodes am and the inflammation of the heart now I sent that rec ommendation down in my heart doctor here in [place] and they're going to do it but I'd rather have dr. Vargas do the procedure so he's willing to do it I like to get it done and over with would you please let me know." Patient is wanting his current PPM extracted and instead have ICD put in. Hx of myocarditis with positive PET scans. Patient was treated with a course of methotrexate. Unable to obtain f/u PET scan d/t insurance denial. 01/27/17 PET scan: Findings reflective of severe myocarditis. There is heterogen ous increased uptake involving the left ventricular myocardium. The basal latera l wall of the left ventricle shows a maximum SUV of 17.95 (index 111). Dr. Tovar's OV note: Obviously, prior cardiac PET/CT imaging did show evidence of an active myocarditis. 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 The echovirus is likely antigenically similar to coxsacki evirus. Unfortunately, insurance will not approve a repeat cardiac PET/CT to ev aluate response to treatment with methotrexate. He cannot obtain a cardiac MRI due to stents in his sinuses I believe. He has had ventricular tachycardia in t he past. Since we are unable to do an MRI and confirm whether or not he might h ave delayed gadolinium enhancement, which would put him at risk for future life- threatening arrhythmias, and because we cannot pursue repeat PET CT imaging to s tali if we were able to resolve the underlying inflammation, I really feel like th e best course of action might be to pursue ICD placement since he did previously have life-threatening arrhythmias. At least that way he is protected if he were to have life-threatening arrhythmias in the future. If he did have a recurrent VT in the future, then I would be in favor of putting him back on treatment. However, subjectively he did not see any reduction in heart palpitations, and we cannot say that we have seen any convincing evidence that the methotrexate impr ove the myocarditis. I would obviously defer to his utility spray operator, but I think t hat would be my recommendation. Patient also see's Dr. Bourgeois in [place], [place]. They have referred him to Dr. Lorena mcgee (same group) for further evaluation for ICD placement. This appointment is scheduled on 09/02/18. Patient has had documented NSVT episodes on past interrogations. Message sent to device team to see if we are receiving remotes. Last in office device interroga tion was . documented in this encounter Plan of Treatment Not on filedocumented as of this encounter Visit Diagnoses Not on filedocumented in this encounter
--- OUTSIDE RECORDS SUMMARY | 2018-08-29 23:08 | XMS REPORT | Clinical Summary ---
Author Author [facility] Organization [facility] Address Unknown Phone Unavailable Care Team Providers Care Principal Cyber Engineer Name Role Phone Yana Chadwick MD 21 Shreyas Puentes MD 3 Eden Hennessy MD PCP Source Comments Some departments are not documenting in the electronic medical record. If you d o not see the information that you expected, contact [facility] of Information [facility] Information Management department at [phone] for further assistan ce in locating additional records.[facility] Allergies Comments Active Allergy Reactions Severity Noted [...] Active topiramate (TOPAMAX) 100 TAKE ONE 1 30/201 mg tablet TABLET BY 7 MOUTH TWICE [...] 100 TAKE 1 TABLET 90 tablet 3 201 mg tablet BY MOUTH ONCE 9 DAILY [...] package for 6 days. Take with food. Active Problems Problem Noted Date Chronic fatigue [...] Encounters Care Team Description Date Type Specialty Alejandro West RN Sinus node dysfunction (HCC) (Primary Dx); PSVT (paroxysmal supraventricular tachycardia) (HCC); NSVT (nonsustained ventricular tachycardia) (HCC); Cardiac device in situ 08/25/2018 Orders Only Cardiology Merary Fields, MILDRED Follow-up Phone Call (Need for ICD) 08/24/2018 Telephone Cardiology Merary Fields, RN Records Request 08/24/2018 Documentation Cardiology Leander Tovar MD Care Coordination (cardiology question) 08/10/2018 Telephone Pulmonology Leander Tovar MD Breathing problem (Primary Dx); [...] Mathis RN Chest Pain (to see local baker helper) 06/08/2018 Telephone Cardiology Saul Altamirano MD Medication Refill 06/06/2018 Refill Cardiology Cat Valenzuela RN Records Request 06/03/2018 Documentation Cardiology Lexi Amezcua MD Pain of left lower leg (Primary Dx); Sarcoma (HCC); History of lipoma; Pain of left thigh 05/30/2018 Office Visit Rehabilitation Medicine Iwona Lira RN Resistant hypertension 05/30/2018 Orders Only Endocrinology from Last 3 Months Family History Medical [...] Area Manufactur er Pacemaker Pacemaker [id number] / [id number] / Medtronic-02/20/2016 Implanted: Qty: 1 on 02/20/2016 by Yumiko Pierre MD Procedures Comments Procedure Name Priority Date/Time Associated Diagnosis DEVICE EVALUATION - Routine 08/24/2018 Sinus node dysfunction REMOTE PPM 3:27 PM CDT ([facility]) Cardiac device in situ BASIC METABOLIC PANEL Routine 07/26/2018 Resistant hypertension from Last 3 Months Results * DEVICE EVALUATION - REMOTE PPM (08/24/2018 3:27 PM CDT) [facility] Signature Generator Med[employer]onic OTHER OUTSIDE Parks Worker LAB Generator Model [id number] OTHER OUTSIDE # LAB Generator [id number] OTHER OUTSIDE Serial # LAB Generator 02/20/16 OTHER OUTSIDE Implnat Date LAB Generator Yes OTHER OUTSIDE Investigational LAB Device Mode aair/dddr OTHER OUTSIDE LAB Mode Switch On OTHER OUTSIDE Status LAB Lower Rate 60 OTHER OUTSIDE Limit LAB Mode Switch 171 OTHER OUTSIDE (bpm) LAB Atrial Lead [employer] OTHER OUTSIDE [facility] Worker LAB Atrial Lead [id number] OTHER OUTSIDE Model # LAB Atrial Lead [id number] OTHER OUTSIDE Serial # LAB Atrial Lead 02/20/16 OTHER OUTSIDE Implant Date LAB Atrial Lead Yes OTHER OUTSIDE Investigational LAB RV Lead [employer]onic OTHER OUTSIDE [facility] Worker LAB RV Lead Model # 5076-58 OTHER OUTSIDE LAB RV Lead Serial [id number] OTHER OUTSIDE # LAB RV Lead Implant 02/20/16 OTHER OUTSIDE Date LAB RV Lead Yes OTHER OUTSIDE Investigational LAB Device Type DDD-PM OTHER OUTSIDE LAB High V Rate 162 OTHER OUTSIDE Detect LAB Pacemaker No OTHER OUTSIDE Dependant LAB Date of Last 04/07/18 OTHER OUTSIDE Programming LAB EP Device MAC OTHER OUTSIDE Followed By LAB Device [employer] OTHER OUTSIDE Winger LAB Transmitter Compatible Known Diagnosed No OTHER OUTSIDE AFib LAB EP Device MPE OTHER OUTSIDE Followed by LAB Name Upper Rate 130 OTHER OUTSIDE Limit LAB Sensor Rate 130 OTHER OUTSIDE Limit LAB Pace AV Delay 300 OTHER OUTSIDE LAB Sense AV Delay 270 OTHER OUTSIDE LAB HF Patient No OTHER OUTSIDE LAB Remote Yes OTHER OUTSIDE Monitoring? LAB Date of Last 07/12/18 OTHER OUTSIDE Remote Check LAB Remote Check? Yes OTHER OUTSIDE LAB Specimen Narrative Performed At OTHER OUTSIDE LAB Current monitoring period: 07/12/18 to 10/11/18 Initial remote with MIKI [08/24/2018 3:34:38 PM - DADA SCRUGGS] EP nurse informed of no new V events as requested. Please see scanned data sheets for further review. Scheduled Carelink transmission received forDual chamber PPM. Device function appears appropriate. Presenting EGM shows NSR in 90s.. Battery longevity 7.5y. Events noted since 04/07/18: Atrial:3 fast A/V events . No sudden onset noted. Duration 12-23 sec. Rates A/V 1:1, 167-171 bpm. . Ventricular:none. RV Pacing%: <1 %. Next follow up appt Dec with Abimael Blue. Next remote scheduled . Results routed to Dr. HAUSER for signature and review. _ Performing Organization Address City/State/Zipcode Phone Number OTHER OUTSIDE LAB * BASIC METABOLIC PANEL (07/26/2018) Sodium 139 [facility] Potassium 3.9 [facility] Chloride 105 [facility] CO2 25 [facility] Blood Urea 13 [facility] Nitrogen Creatinine 1.01 [facility] Glucose 80 [facility] Calcium 9.1 [facility] eGFR Non >60 [facility] eGFR [facility] Ugandan Anion Gap 9 [facility] Specimen Blood - Blood Narrative Performed At Performing Organization Address City/State/Zipcode Phone Number [facility] [address] [place] [address] from Last 3 Months Insurance Type Payer Benefit Subscriber ID Effective Phone Address Plan / Dates Group Medicaid [facility] x[facility]xx 2009- [facility] Present HEALTH Advance Directives Patient Lathe Hand Explanation Type Date Recorded Advance Directive/DPOA
--- OUTSIDE RECORDS SUMMARY | 2018-08-29 23:09 | XMS REPORT | Encounter Summary ---
Author Author [facility] Organization [facility] Address Unknown Phone Unavailable Care Team Providers Care Assistant Operations Manager Name Role Phone Yana Chadwick MD 21 Shreyas Puentes MD 3 Eden Hennessy MD PCP Reason for Referral * Consult, Test & Treat (Routine) Referred By Contact Referred To Contact Status Reason Specialty Diagnoses / Procedures Roger Blue MD [address] [place] [address] New Request Procedures REQUEST FOR CARDIOLOGY APPOINTMENT * Consult, Test & Treat (Routine) Referred By Contact Referred To Contact Status Reason Specialty Diagnoses / Procedures Roger Blue MD [address] [place] [address] [facility] [address] [place] [address] New Request Specialty Services Transplant Diagnoses Required Surgery Resistant hypertension Reason for Visit * Reason Comments Cardiac Eval History of hypertension Encounter Details Care Team Description Date Type Department Roger Blue MD [address] [place] [address] [phone] Cardiac Eval (History of hypertension) 07/13/2018 Office Visit The [address] [address] Social History Date Tobacco Use Types Packs/Day [...] in May was admitted to a local spital with what was concerning for a stroke [...] in any large quantities. He lives in [facility] with his girlfriend and has been for [...] Myocarditis (HCC) 02/26/2017 NSVT (nonsustained ventricular tachycardia) ([facility]) 02/26/2017 Cardiac device in situ 01/14/2017 Sinus node dysfunction ([facility]) 11/02/2016 Dr. Valdez S/p PPM implant- Advisa 02/20/16 PSVT (paroxysmal supraventricular tachycardia) ([facility]) 11/02/2016 Resistant hypertension 11/02/2016 MELI (obstructive sleep [...] minutes with the patient today in a dklu-rx-[id number] discussion about his risks for hypertension and diet and medication management Current Medications (including today's revisions) ALPRAZolam (XANAX) 1 mg tablet TAKE ONE TABLET BY MOUTH TWICE DAILY FOR ANXI ETY amLODIPine (NORVASC) 5 mg tablet Take one tablet by mouth daily. (Patient shelly ana differently: Take 10 mg by mouth daily.) [...] encounter Miscellaneous Notes * Addendum Note - Nae Sunshine RN - 07/13/2018 8:45 AM CDT Addended by: NAE SUNSHINE on: 07/13/2018 10:21 AM Modules accepted: Orders * Addendum Note - Nae Sunshine RN - 07/13/2018 8:45 AM CDT Addended by: NAE SUNSHINE on: 07/13/2018 09:58 AM Modules accepted: [...] Organization Address City/State/Zipcode Phone Number MAIN LAB [address] [place] [address] documented in this encounter Visit Diagnoses Diagnosis Resistant hypertension - Primary documented in this encounter
--- OUTSIDE RECORDS SUMMARY | 2018-08-29 23:09 | XMS REPORT | Encounter Summary ---
Author Author [facility] Organization [facility] Address Unknown Phone Unavailable Care Team Providers Care Exercise Rider Name Role Phone Yana Chadwick MD 21 Shreyas Puentes MD 3 Eden Hennessy MD PCP Reason for Visit * Reason Comments Care Coordination cardiology question Encounter Details Care Team Description Date Type Department Leander Tovar MD [address] [facility] Lvl [address] [place] [address] Care Coordination (cardiology question) 08/10/2018 Telephone The [facility] [address] [address] Social History Date Tobacco Use [...] Telephone Encounter - Mariam Nye RN - 08/10/2018 10:58 AM CDT Tamar with Dr. Bourgeois office left message stating pt called and told them gael t he needs an upgrade to his pacemaker and someone from our office should be con tacting them regarding that. Tamar requesting return call. Discussed with Dr. Tovar. Requested office note be sent for recommendations. Call returned to Tamar to discuss and left message with plastic surgery specialist stating we will fax office note and can follow up with questions regarding after. Fax sreekanthe r of [phone] received. Fax sent and confirmation received. documented in this encounter Plan of Treatment Not on filedocumented as of this encounter Visit Diagnoses Not on filedocumented in this encounter
--- OUTSIDE RECORDS SUMMARY | 2018-08-29 23:09 | XMS REPORT | Encounter Summary ---
Author Author [facility] Organization [facility] Address Unknown Phone Unavailable Care Team Providers Care Business Analysis Consultant Name Role Phone Yana Chadwick MD 21 Shreyas Puentes MD 3 Eden Hennessy MD PCP Reason for Visit * Reason Comments Heart Problem F/U Myocarditist Encounter Details Care Team Description Date Type Department Leander Tovar MD [address] [facility] Lvl [address] [place] [address] [phone] Breathing problem (Primary Dx); MELI (obstructive sleep apnea); PSVT (paroxysmal supraventricular tachycardia) (HCC); NSVT (nonsustained ventricular tachycardia) (HCC); Morbid obesity (HCC); Chronic idiopathic myocarditis; Chronic fatigue and immune dysfunction syndrome (HCC) 08/01/2018 Office Visit The [facility] [address] [facility] [address] [place] [address] Social History Date Tobacco Use [...] does have some exercise limitations due to cafeteria or lunchroom checker staci leg pain. He does swim on [...] as of yet. He is otherwise w [facility] complaints. Medical History: Diagnosis Date Anxiety [...] that he could have been at [facility] for arrhythmias while he was not on [...] myocarditis. I would obviously defer to his horticultural farmer, but I think that would be my [...] for him to dominique t with a sales program manager locally. Otherwise, follow-up in a weight management [...] weight loss efforts. Consider referral to local sales program manager. 5. Future follow-up on an as-needed basis. I spent 70% of this encounter in face to face time discussing the management marquita n as above with the patient. If there are any additional questions please do no t hesitate to contact the [facility] at . Leander Tovar MD, [facility] Assistant Construction Superintendent Director of the [facility] Division of Pulmonary & Critical Care Medicine [address] [facility] [place] [address] [place] [address] (This documentation was created with [employer] Dictation software, and while some e diting [...]
--- OUTSIDE RECORDS SUMMARY | 2018-08-29 23:09 | XMS REPORT | Encounter Summary ---
Author Author [facility] Organization [facility] Address Unknown Phone Unavailable Care Team Providers Care Brass Cutter Name Role Phone Yana Chadwick MD 21 Shreyas Puentes MD 3 Eden Hennessy MD PCP Reason for Visit * Reason Comments Lab Results Encounter Details Care Team Description Date Type Department Cat Valenzuela RN Lab Results 07/26/2018 Documentation The [facility] [address] [facility] [place] [address] Social History Date Tobacco Use Types Packs/Day [...] eGFR [facility] [place] Anion Gap 9 [facility] Specimen Blood - Blood Narrative Performed At Performing Organization Address City/State/Zipcode Phone Number MAIN LAB [address] [place] [address] documented in this encounter Visit Diagnoses Diagnosis Resistant hypertension documented in this encounter
--- OUTSIDE RECORDS SUMMARY | 2018-08-29 23:09 | XMS REPORT | Encounter Summary ---
Author Author [facility] Organization [facility] Address Unknown Phone Unavailable Care Team Providers Care Production Sound Mixer Name Role Phone Yana Chadwick MD 21 Shreyas Puentes MD 3 Eden Hennessy MD PCP Reason for Visit * Reason Comments Records Request Encounter Details Care Team Description Date Type Department Merary Fields RN Records Request 08/24/2018 Documentation The [facility] [address] [facility] [place] [address] Social History Date Tobacco Use Types Packs/Day [...] as of this encounter Progress Notes * Mora Henderson - 08/24/2018 12:35 PM CDT Records received and placed in 's to review rightfax folder. Will send a copy to be scanned into 02. * Merary Fields RN - 08/24/2018 12:35 PM CDT Records requested from Dr. Bourgeois's office in [place], [place]. For recent office visits, device interrogations, cardiac imaging. documented in this encounter Plan of Treatment Not on filedocumented as of this encounter Visit Diagnoses Not on filedocumented in this encounter
--- OUTSIDE RECORDS SUMMARY | 2018-08-29 23:09 | XMS REPORT | Encounter Summary ---
Author Author [facility] Organization [facility] Address Unknown Phone Unavailable Care Team Providers Care Finisher Operator Name Role Phone Yana Chadwick MD 21 Shreyas Puentes MD 3 Eden Hennessy MD PCP Reason for Visit * Reason Comments Pain Encounter Details Care Team Description Date [place] [address] [place], [place] [id number] History of lipoma (Primary Dx); Pain of left thigh; Pain of left lower leg; Morbid obesity (HCC) 07/18/2018 Office Visit [facility] [address] [place], [place] [address] Social History Date Tobacco Use Types Packs/Day [...] How to reach me: Please send a [email or web address] message to the Spine Center or leave a voicemail Amanda Plummer at [phone] How to get a medication refill: Please use the [email or web address] Refill request or cont act your pharmacy directly to request medication refills. How to receive your test results: If you have signed up for [email or web address], you will receive your test results and messages from me this way. Otherwise, you will get a phone call or letter. If you are expecting results and have not heard from my office within 2 weeks of your testing, please send a [email or web address] message or call my office. Scheduling: Our scheduling phone number if you are a Spine Center patient is [phone]. If you are a cancer center patient, please call the cancer center you go to for scheduling. Appointment Reminders on your cell phone: Make sure we have your cell phone n castroer, and Text [facility] to [phone]. Support for many chronic illnesses is available through [facility]: turnin [email or web address] or 230-279-6118. For questions on nights, weekends or holidays, call the tenter frame operator at , and ask for the doctor electrical and instrumentation mechanic for Physical Medicine and Rehab. documented in this encounter Progress Notes * Lexi Amezcua MD - 07/18/2018 9:30 AM CDT ONCOLOGY REHAB HISTORY AND PHYSICAL Chief Complaint Patient presents with Left Leg - Pain Subjective HISTORY OF PRESENT ILLNESS: Mr. Velásquez is a pleasant 47 y.o. male with a history of LLE lipoma s/p resection x 4 in [place] with the last in 2015 who is seen on 07/18/2018 at the [facility] for follow up evaluation and [...] LLE lipoma s/p re section x4 in [place] with the last in 2016. History and [...] but discussed that we do not do detention opioid mgmt at the spine center. We [...] for left knee scope with ortho in [place], [place] Plan: 1. Medications: Can continue current [...]
--- OUTSIDE RECORDS SUMMARY | 2018-08-29 23:09 | XMS REPORT | Encounter Summary ---
Author Author [facility] Organization [facility] Address Unknown Phone Unavailable Care Team Providers Care Air Table Operator Name Role Phone Yana Chadwick MD 21 Shreyas Puentes MD 3 Eden Hennessy MD PCP Encounter Details Care Team Description Date Type Department Saul Altamirano MD 4000 [facility] [place] [address] [phone] 07/12/2018 [facility] Cardiovascular Medicine Encounter Remote Device Check [phone] Social History Date Tobacco Use Types Packs/Day [...] node dysfunction REMOTE PPM 3:27 PM CDT ([facility]) Cardiac device in situ documented in this encounter Results * DEVICE EVALUATION - REMOTE PPM (08/24/2018 3:27 PM CDT) [facility] Signature Generator Medtronic OTHER OUTSIDE Crisis Clinician LAB Generator Model [id number] OTHER OUTSIDE # LAB Generator [id number] OTHER OUTSIDE Serial # LAB Generator 02/20/16 OTHER OUTSIDE Implnat Date LAB Generator Yes OTHER OUTSIDE Investigational LAB Device Mode aair/dddr OTHER OUTSIDE LAB Mode Switch On OTHER OUTSIDE Status LAB Lower Rate 60 OTHER OUTSIDE Limit LAB Mode Switch 171 OTHER OUTSIDE (bpm) LAB Atrial Lead Medtronic OTHER OUTSIDE Crisis Clinician LAB Atrial Lead 407,652 OTHER OUTSIDE Model # LAB Atrial Lead [id number] OTHER OUTSIDE Serial # LAB Atrial Lead 02/20/16 OTHER OUTSIDE Implant Date LAB Atrial Lead Yes OTHER OUTSIDE Investigational LAB RV Lead Medtronic OTHER OUTSIDE Crisis Clinician LAB RV Lead Model # 5076-58 OTHER OUTSIDE LAB RV Lead Serial [id number] OTHER OUTSIDE # LAB RV Lead Implant 02/20/16 OTHER OUTSIDE Date LAB RV Lead Yes OTHER OUTSIDE Investigational LAB Device Type DDD-PM OTHER OUTSIDE LAB High V Rate 162 OTHER OUTSIDE Detect LAB Pacemaker No OTHER OUTSIDE Dependant LAB Date of Last 04/07/18 OTHER OUTSIDE Programming LAB EP Device MAC OTHER OUTSIDE Followed By LAB Device [employer] OTHER OUTSIDE [place] [facility] Transmitter Compatible Known Diagnosed No OTHER [...] Pacing%: <1 %. Next follow up appt Jan with Abimael Blue. Next remote scheduled . Results routed to Dr. HAUSER for signature and review. _ Performing Organization Address City/State/Zipcode Phone Number OTHER OUTSIDE LAB documented in this encounter Visit Diagnoses Diagnosis Sinus node dysfunction (HCC) Sinoatrial node dysfunction Cardiac device in situ Unspecified cardiac device in situ documented in this encounter
--- OUTSIDE RECORDS SUMMARY | 2018-08-29 23:09 | XMS REPORT | Encounter Summary ---
Author Author [facility] Organization [facility] Address Unknown Phone Unavailable Care Team Providers Care Medical Laboratory Manager Name Role Phone Yana Chadwick MD 21 Shreyas Puentes MD 3 Eden Hennessy MD PCP Reason for Visit * Reason Comments Pain eval pain pump Pain Encounter Details Care Team Description Date Type Department Chapin Soto MD 4000 [place], [place] [id number] Complex regional pain syndrome type 1 of left lower extremity (Primary Dx); Neuropathic pain 07/28/2018 Office Visit The [facility] [address] [address] Social History Date Tobacco Use Types Packs/Day [...] How to reach me: Please send a [email or web address] message to the Spine Center or leave a voicemail for my nurse, Juvenal, at [phone]. How to get a medication refill: Please use the [email or web address] Refill request or cont act your pharmacy directly to request medication refills. Please allow 72 busine ss hours for request to be completed. How to receive your test results: If you have signed up for [email or web address], you will receive your test results and messages from me this way. Otherwise, you will get a phone call or letter. If you are expecting results and have not heard from my office within 2 weeks of your testing, please send a [email or web address] message or call my office. Scheduling: Our scheduling phone number is [phone]. Appointment Reminders on your cell phone: Make sure we have your cell phone n ze, and Text [facility] to [phone]. Support for many chronic illnesses is available through [facility]: turnin [email or web address] or [phone]. For questions on nights, weekends or holidays, call the Partner Marketing Intern at , and ask for the doctor professional tutor for Anesthesia Pain Management. Again, thank you [...]
--- OUTSIDE RECORDS SUMMARY | 2018-08-29 23:09 | XMS REPORT | Encounter Summary ---
Author Author [facility] Organization [facility] Address Unknown Phone Unavailable Care Team Providers Care Telecom Engineer Name Role Phone Yana Chadwick MD 21 Shreyas Puentes MD 3 Eden Hennessy MD PCP Reason for Visit * Reason Comments Migraine come and go Encounter Details Care Team Description Date Type Department Geoff Spivey, DO [address] [facility] [place], [place] [id number] MELI (obstructive sleep apnea) (Primary Dx); Chronic daily headache; Morbid obesity (HCC); Left leg numbness 07/08/2018 Office Visit The [facility] [address] [id number] Social History Date Tobacco Use Types Packs/Day [...] Date of Service: 07/08/2018 Subjective: Trent Velásquez is a 47 y.o. male. History of [...] or may not be MRI compatible. 7. Jrls-kie-qpsddyh analgesics for as needed pain 8. RTC with me in 3 to 4 months. Call with side effects or complaints/changes Today I spent approximately 40 minutes with Trent. More than 50% was spent dir ectly vsux-uw-qola on counseling, answering questions and discussion/education. documented in this encounter Plan of Treatment Not on filedocumented as of this encounter Visit Diagnoses Diagnosis MELI (obstructive sleep apnea) - Primary Obstructive sleep apnea (adult) (pediatric) Chronic daily headache Headache Morbid obesity (HCC) Morbid obesity Left leg numbness Disturbance of skin sensation documented in this encounter
--- OUTSIDE RECORDS SUMMARY | 2018-08-29 23:10 | XMS REPORT | Encounter Summary ---
Author Author [facility] Organization [facility] Address Unknown Phone Unavailable Care Team Providers Care Garnishment Specialist Name Role Phone Yana Chadwick MD 21 Shreyas Puentes MD 3 Eden Hennessy MD PCP Reason for Visit * Reason Comments Pain Encounter Details Care Team Description Date [place] [address] [place], [place] [phone] Pain of left lower leg (Primary Dx); Sarcoma (HCC); History of lipoma; Pain of left thigh 05/30/2018 Office Visit [facility] [address] [place], [place] [address] Social History Date Tobacco Use Types Packs/Day [...] LLE lipoma s/p resection x 4 in [place] with the last in 2015 who is seen on 05/30/2018 at the [facility] for follow up evaluation and treatment [...] LLE lipoma s/p re section x4 in [place] with the last in 2015. History and [...] mg tabs that he was previously r lorna. Discussed the concern with the patient for continued opioid use, but until we are able to find a neuropathic treatment option or interventional treat ment option to relieve his left lower extremity pain, this may be necessary. He is not satisfied with his current provider ("makes it difficult to get rx"), but discussed that we do not do [facility] opioid mgmt at the spine center. We [...]
--- OUTSIDE RECORDS SUMMARY | 2018-08-29 23:10 | XMS REPORT | Encounter Summary ---
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 CT LOWER EXTREM WO/W CONT LT * Radiology Services Referred By Contact Referred To Contact Status Reason Specialty Diagnoses / [place] [address] [facility] d [address] [place] [address] [address] [place] [address] Closed Radiology Diagnoses 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 CT LOWER EXTREM WO/W CONT LT Reason for Visit * Radiology Services Referred By Contact Referred To Contact Status Reason Specialty Diagnoses / [place] [address] [facility] d [address] [place] [address] [address] [place] [address] Closed Radiology Diagnoses 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
--- OUTSIDE RECORDS SUMMARY | 2018-08-29 23:10 | XMS REPORT | Encounter Summary ---
Author Author [facility] Organization [facility] Address Unknown Phone Unavailable Care Team Providers Care Transitional Care Manager Name Role Phone Yana Chadwick MD 21 Shreyas Puentes MD 3 Eden Hennessy MD PCP Encounter Details Care Team Description Date Type Department Iwona Lira RN Resistant hypertension 05/30/2018 Orders Only The [facility] [address] [facility] [address] [place] [phone] Social History Date Tobacco Use Types Packs/Day [...] Swab Narrative Performed At Performing Organization Address [facility] Phone Number MAIN LAB [address] [place] [address] * CORTISOL,SALIVA (05/17/2018 11:00 PM CDT) Cortisol, 0.054 0.010 - 0.090 [facility] MAIN LAB Sample 1 Specimen Saliva - Salivette Swab Narrative Performed At Performing Organization Address [facility] Phone Number MAIN LAB [address] [place] [address] documented in this encounter Visit Diagnoses Diagnosis Resistant hypertension documented in this encounter
--- OUTSIDE RECORDS SUMMARY | 2018-08-29 23:10 | XMS REPORT | Encounter Summary ---
Author Author [facility] Organization [facility] Address Unknown Phone Unavailable Care Team Providers Care Water Softener Servicer And Installer Name Role Phone Yana Chadwick MD 21 Shreyas Puentes MD 3 Eden Hennessy MD PCP Reason for Visit * Reason Comments Chest Pain to see local vice president of talent management Encounter Details Care Team Description Date Type Department Shanita Mathis RN Chest Pain (to see local vice president of talent management) 06/08/2018 Telephone The [address] [place] [address] Social History Date Tobacco Use Types Packs/Day [...] who recommend pt be evaluated by local vice president of talent management for further recommendations. Returned call to pt [...] RN - 06/08/2018 10:20 AM CDT Received Osteomimeticshart message pt reporting chest pain, BP variability. Placed call to pt to discuss. He states his BP continues to be high, highest BP was 201/119 and he went to [facility] due to concerns for stroke. He states they discharged him from ED with BP 178/114 with instructions to see doctor stephany romero BP. Pt states he goes to local PCP office every day for BP check. He stat es top number usually about 150-160+ and bottom number is always over 90. He con firmed He states he has had dull chest pain in chest for the last two days right at [facility] site. He reports pain comes and [...] RE: Prescription Question Contact: ----- Message from Aj Robertt, Generic sent at 06/08/2018 9:51 AM CDT ----- [...] Prescription Question I need refill orders losartan [facility] in [facility] thank you documented in this encounter Plan of Treatment Not on filedocumented as of this encounter Visit Diagnoses Not on filedocumented in this encounter
--- OUTSIDE RECORDS SUMMARY | 2018-08-29 23:10 | XMS REPORT | Encounter Summary ---
Author Author [facility] Organization [facility] Address Unknown Phone Unavailable Care Team Providers Care Geriatric Physician Name Role Phone Yana Chadwick MD 21 Shreyas Puentes MD 3 Eden Hennessy MD PCP Reason for Visit * Reason Comments Medication Refill Encounter Details Care Team Description Date Type Department EmerSaul vazquez MD [address] [address] [phone] Medication Refill 06/06/2018 Refill The [facility] [address] [address] Social History Date Tobacco Use Types Packs/Day [...]
--- OUTSIDE RECORDS SUMMARY | 2018-08-29 23:10 | XMS REPORT | Encounter Summary ---
Author Author [facility] Organization [facility] Address Unknown Phone Unavailable Care Team Providers Care Dip Lube Operator Name Role Phone Yana Chadwick MD 21 Shreyas Puentes MD 3 Eden Hennessy MD PCP Reason for Visit * Reason Comments Records Request Encounter Details Care Team Description Date Type Department Cat Valenzuela RN Records Request 06/03/2018 Documentation The [address] [place] [address] Social History Date Tobacco Use Types Packs/Day [...] 06/03/2018 8:57 AM CDT Records Request Trent Didier 1970 Please fax over the following records [...]
--- OUTSIDE RECORDS SUMMARY | 2018-08-29 23:10 | XMS REPORT | Encounter Summary ---
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
--- OUTSIDE RECORDS SUMMARY | 2018-08-29 23:10 | XMS REPORT | Encounter Summary ---
Author Author [facility] Organization [facility] Address Unknown Phone Unavailable Care Team Providers Care Veneer Jointer Operator Name Role Phone Yana Chadwick MD 21 Shreyas Puentes MD 3 Eden Hennessy MD PCP Reason for Referral * Pain Authorization (Routine) Referred By Contact Referred To Contact Status Reason Specialty Diagnoses / [place] [address] [address] [place] [address] Geoff Spivey DO [address] [facility] [facility] [place] [address] Closed Neurology Diagnoses History of lipoma Sarcoma (HCC) Pain of left lower leg P rocedures SPINE EMG PROCEDURE Reason for Visit * Reason Comments Pain * Pain Authorization (Routine) Referred By Contact Referred To Contact Status Reason Specialty Diagnoses / [place] [address] [address] [place] [address] Geoff Spivey DO [address] [facility] [place] [address] Closed Neurology Diagnoses History of lipoma Sarcoma (HCC) Pain of left lower leg P rocedures SPINE EMG PROCEDURE Encounter Details Care Team Description Date Type Department Geoff Spivey DO [address] [facility] [place] [address] [phone] History of lipoma; Sarcoma (HCC); Pain of left lower leg 05/27/2018 Procedure visit The [facility] [address] [address] Social History Date Tobacco Use Types Packs/Day [...] CDT Associated Order(s): SPINE EMG PROCEDURE Procedure(s): GA NERVE CONDUCTION STUDIES 3-4 STUDIES; GA NEEDLE EMG EA EXTREMTY W/PARASPINL AREA COMPLETE [...] Comments Procedure Name Priority Date/Time Associated Diagnosis GA NERVE CONDUCTION Routine 05/27/2018 History of lipoma STUDIES 3-4 STUDIES 2:45 PM CDT Sarcoma (HCC) Pain of left lower leg GA NEEDLE EMG EA EXTREMTY Routine 05/27/2018 History [...]
--- OUTSIDE RECORDS SUMMARY | 2018-08-29 23:10 | XMS REPORT | Encounter Summary ---
Author Author [facility] Organization [facility] Address Unknown Phone Unavailable Care Team Providers Care Osteopathic Medicine Teacher Name Role Phone Yana Chadwick MD 21 Shreyas Puentes MD 3 Eden Hennessy MD PCP Reason for Referral * Consult, Test & Treat Referred By Contact Referred To Contact Status Reason Specialty Diagnoses / Procedures Lois Sosa MD [address] [facility] [place] [address] [place] [address] Rb - Sleep Disordr Ctr [address] [facility] [address] [place] [address] New Request Specialty Services Sleep Center Diagnoses [...] Diagnoses / Procedures Leander Tovar MD 1999 [facility] Pavilion [address] [place] [address] [facility] [address] [place] [address] New Request Specialty Services Pulmonology Diagnoses Required CPAP (continuous positive airway pressure) dependence SANTIAGO (obstructive sleep apnea) Encounter Details Care Team Description Date Type Department Leander Tovar MD [address] Ortho/Med Pavilion [address] [place] [address] [phone] Lois Sosa MD [address] [place] [address] [phone] SANTIAGO (obstructive sleep apnea) (Primary Dx); Morbid obesity (HCC); Hypersomnia 06/29/2018 Office Visit The [facility] [address] [place] [address] Social History Date Tobacco Use [...] can call my nurse, Theresa Lou at [phone] A sleep study has been ordered for you by your physician. Our records show that you do not currently have health insurance, or have health insurance that does not cover the cost of a sleep study. However, arrangements may be made to obtain a study with financial assistance from [facility]. These arrangements are made by the patient financial services office and are don e on a case by case basis. We must have the approval from financial services be fore we can schedule your sleep study. Please contact Sushil Rose in the business office at [phone] to make payme nt arrangements. Hollis FletcherMilton will inform us when the proper arrangements have be en made at which time we will contact you to schedule your sleep study. Thank you. [facility] [address] [place] [address] documented in this encounter Progress Notes * [...] moved to a new house in the [place] and and is gotten permission to start the machine. He said he got the machine through some assist ance program to via [employer]. He said he has gained nearly 70 [...] * Assessment & Plan Note - Lois oSsa MD - 06/29/2018 11:10 AM CDT Associated [...]
--- OUTSIDE RECORDS SUMMARY | 2018-08-29 23:11 | XMS REPORT | Encounter Summary ---
Author Author [facility] Organization [facility] Address Unknown Phone Unavailable Care Team Providers Care Gate Watchman Name Role Phone Yana Chadwick MD 21 Shreyas Puentes MD 3 Eden Hennessy MD PCP Reason for Visit * Reason Comments Lab Results Encounter Details Care Team Description Date Type Department Cat Sunshine RN Lab Results 05/05/2018 Documentation The [facility] 4000 [facility]600 [place] [address] Social History Date Tobacco Use Types Packs/Day [...] Specimen Blood - Blood Performing Organization Address City/[facility] Phone Number [facility] [address] [place] [address] * BASIC METABOLIC PANEL (05/04/2018) Sodium 130 [facility] Potassium 3.7 [facility] Chloride 100 [facility] CO2 25 [facility] Blood Urea 16 [facility] Nitrogen Creatinine 1.32 [facility] Glucose 139 [facility] Calcium 9.9 [facility] eGFR Non 59 (L) >60 [facility] eGFR [facility] Polish Anion Gap 13 [facility] Specimen Blood - Blood Narrative Performed At Performing Organization Address City/[facility] Centercode Phone Number [employer] MAIN LAB [address] [place] [address] documented in this encounter Visit Diagnoses Diagnosis Resistant hypertension documented in this encounter
--- OUTSIDE RECORDS SUMMARY | 2018-08-29 23:11 | XMS REPORT | Encounter Summary ---
Author Author [facility] Organization [facility] Address Unknown Phone Unavailable Care Team Providers Care Beam Builder Name Role Phone Yana Chadwick MD 21 Shreyas Puentes MD 3 Eden Hennessy MD PCP Reason for Visit * Reason Comments Lab Results Encounter Details Care Team Description Date Type Department Cat Valenzuela RN Lab Results 05/12/2018 Telephone The [facility] [address] [address] Social History Date Tobacco Use Types Packs/Day [...] - 05/12/2018 1:25 PM CDT Routed to AYANA for review. documented in this encounter Plan [...] MAIN LAB eGFR 92 [facility]IN [facility] Lithuanian Anion Gap [facility] Specimen Blood - Blood Narrative Performed At MAIN LAB Dr. Blue, repeat labs for review.Adjusted BP meds approximately 10 days ago.Creat bumped previously to 1.32 on 05/04.Wanted recheck in a couple weeks.Patient already went to lab - Cr now 1.10.Thanks, Anamika Performing Organization Address City/State/Zipcode Phone Number MAIN LAB [address] [place] [address] documented in this encounter Visit Diagnoses Diagnosis Resistant hypertension documented in this encounter
--- OUTSIDE RECORDS SUMMARY | 2018-08-29 23:11 | XMS REPORT | Encounter Summary ---
Author Author [facility] Organization [facility] Address Unknown Phone Unavailable Care Team Providers Care Concrete Form Setter And Finisher Name Role Phone Yana Chadwick MD 21 Shreyas Puentes MD 3 Eden Hennessy MD PCP Encounter Details Care Team Description Date Type Department Glenys Kessler MD [address] Ortho/Med Pavilion [address] [place] [address] [phone] Essential (primary) hypertension 05/13/2018 [facility] [address] [address] Social History Date Tobacco Use Types Packs/Day [...] LAB D(25-OH)Total Specimen Blood Performing Organization Address [facility] Hospital[facility] Phone Number MAIN LAB [address] [place] [address] * BASIC METABOLIC PANEL (05/13/2018 9:13 AM [...] >60 >60 mL/min [facility] Comment: [place]ian The eGFR is not validated for use in drug dosing adjustments.Continue to use estimated creatinine clearance per dosing reference text.Please contact the Clinical Pharmacist for questions. eGFR >60 >60 mL/min [facility] [place]ian Comment: The eGFR is not validated for use in drug dosing adjustments.Continue to use estimated creatinine clearance per dosing reference text.Please contact the Clinical Pharmacist for questions. Specimen Blood Performing Organization Address [facility] Hospital[facility]a Phone Number [facility] [address] [place] [address] documented in this encounter Visit Diagnoses Diagnosis Resistant hypertension Hyperparathyroid bone disease (HCC) Primary hyperparathyroidism Essential hypertension Unspecified essential hypertension documented in this encounter
--- OUTSIDE RECORDS SUMMARY | 2018-08-29 23:11 | XMS REPORT | Encounter Summary ---
Author Author [facility] Organization [facility] Address Unknown Phone Unavailable Care Team Providers Care Plant Anatomy Teacher Name Role Phone Yana Chadwick MD 21 Shreyas Puentes MD 3 Eden Hennessy MD PCP Reason for Referral * Consult, Test & Treat (Routine) Referred By Contact Referred To Contact Status Reason Specialty Diagnoses / Procedures Glenys Kessler MD [address] [facility] Ortho/Med Pavilion Lvl [address] [place] [address] [facility] [address] [place] [address] Closed Specialty Services Pulmonology Diagnoses Required Sleep apnea, unspecified type Reason for Visit * Reason Comments Other Encounter Details Care Team Description Date Type Department Glenys Kessler MD [address] [facility] Ortho/Med Pavilion Lvl [address] [place] [address] [phone] Resistant hypertension (Primary Dx); Hyperparathyroid bone disease (HCC); Sleep apnea, unspecified type 05/13/2018 Office Visit The [facility] [address] [facility] 100 [place] [address] Social History Date Tobacco Use [...] Urine Narrative Performed At Performing Organization Address City/[facility]/Zipcode Phone Number OTHER OUTSIDE LAB * CALCIUM-URINE 24HR (05/19/2018) Calcium 24 Hr 53.9 100.0 - 300.0 OTHER OUTSIDE LAB Specimen Urine - Urine Narrative Performed At Performing Organization Address City/[facility]/Zipcode Phone Number OTHER OUTSIDE LAB * CORTISOL,SALIVA (05/18/2018) Cortisol, 0.018 0.010 - 0.090 MAIN LAB Sample 2 Specimen Saliva - Salivette Swab Narrative Performed At Performing Organization Address City/[facility]/Zipcode Phone Number MAIN LAB [address] [place] [address] * CORTISOL,SALIVA (05/17/2018 11:00 PM CDT) Cortisol, 0.054 0.010 - 0.090 MAIN LAB Sample 1 Specimen Saliva - Salivette Swab Narrative Performed At Performing Organization Address City/[facility]/Zipcode Phone Number MAIN LAB [address] [place] [address] * 25-OH VITAMIN D (D2 + D3) (05/13/2018 9:13 AM CDT) Vitamin 19.7 (L) 30 - 80 NG/ML [facility]IN [facility] D(25-OH)Total Specimen Blood Performing Organization Address City/State/Zipcode Phone Number MAIN LAB [address] [place] [address] * BASIC METABOLIC PANEL (05/13/2018 9:13 AM [...] >60 >60 mL/min [facility]IN [facility] Comment: Bur[place]ian The eGFR is not validated for use in drug dosing adjustments.Continue to use estimated creatinine clearance per dosing reference text.Please contact the Clinical Pharmacist for questions. eGFR >60 >60 mL/min [facility] [place]ian Comment: The eGFR is not validated for use in drug dosing adjustments.Continue to use estimated creatinine clearance per dosing reference text.Please contact the Clinical Pharmacist for questions. Specimen Blood Performing Organization Address City/State/Zipcode Phone Number [facility] [address] [place] [address] documented in this encounter Visit Diagnoses Diagnosis Resistant hypertension - Primary Hyperparathyroid bone disease (HCC) Primary hyperparathyroidism Sleep apnea, unspecified type documented in this encounter
--- OUTSIDE RECORDS SUMMARY | 2018-08-29 23:11 | XMS REPORT | Encounter Summary ---
Author Author [facility] Organization [facility] Address Unknown Phone Unavailable Care Team Providers Care Area Operations Director Name Role Phone Yana Chadwick MD 21 Shreyas Puentes MD 3 Eden Hennessy MD PCP Reason for Visit * Reason Comments Critical Result Encounter Details Care Team Description Date Type Department Glenys Kessler MD [address] Ortho/Med Pavilion Lvl [address] [place] [address] [phone] Critical Result 05/13/2018 Telephone The [facility] [address] [facility] 100 [place] [address] Social History Date Tobacco Use [...]
--- OUTSIDE RECORDS SUMMARY | 2018-08-29 23:11 | XMS REPORT | Encounter Summary ---
Author Author [facility] Organization [facility] Address Unknown Phone Unavailable Care Team Providers Care Data Mining Analyst Name Role Phone Yana Chadwick MD 21 Shreyas Puentes MD 3 Eden Hennessy MD PCP Reason for Visit * Reason Comments Lab Results Encounter Details Care Team Description Date Type Department Cat Valenzuela RN Lab Results 05/09/2018 Telephone The [facility] 4000 [facility]600 [place] [address] Social History Date Tobacco Use Types Packs/Day [...] weeks. Orders entered and will fax to [facility]. * Telephone Encounter - Cat Valenzuela RN [...] MAIN LAB eGFR 92 [facility] MAIN [facility] Afghan Anion Gap [facility] MAIN [facility] Specimen Blood - Blood Narrative Performed At [facility] MAIN LAB Dr. Blue, repeat labs for review.Adjusted BP meds approximately 10 days ago.Creat bumped previously to 1.32 on 05/04.Wanted recheck in a couple weeks.Patient already went to lab - Cr now 1.10.Anamika Avila Performing Organization Address City/State/Zipcode Phone Number MAIN LAB [address] [place] [address] documented in this encounter Visit Diagnoses Diagnosis MELI (obstructive sleep apnea) - Primary Obstructive sleep apnea (adult) (pediatric) Resistant hypertension documented in this encounter
--- OUTSIDE RECORDS SUMMARY | 2018-08-29 23:11 | XMS REPORT | Encounter Summary ---
Author Author [facility] Organization [facility] Address Unknown Phone Unavailable Care Team Providers Care Medical Technologist Generalist Name Role Phone Yana Chadwick MD 21 Shreyas Puentes MD 3 Eden Hennessy MD PCP Reason for Visit * Reason Comments Lab Results Encounter Details Care Team Description Date Type Department Cat Valenzuela RN Lab Results 05/16/2018 Telephone The [facility] 4000 [facility]600 [place] [address] Social History Date Tobacco Use Types Packs/Day [...]
--- OUTSIDE RECORDS SUMMARY | 2018-08-29 23:11 | XMS REPORT | Encounter Summary ---
Author Author [facility] Organization [facility] Address Unknown Phone Unavailable Care Team Providers Care Quality Improvement Manager Name Role Phone Yana Chadwick MD 21 Shreyas Puentes MD 3 Eden Hennessy MD PCP Encounter Details Care Team Description Date Type Department Iwona Lira RN Resistant hypertension; Hyperparathyroid bone disease (HCC) 05/25/2018 Orders Only The [facility] [address] [place] [address] Social History Date Tobacco Use [...]
--- OUTSIDE RECORDS SUMMARY | 2018-08-29 23:12 | XMS REPORT | Encounter Summary ---
Author Author [facility] Organization [facility] Address Unknown Phone Unavailable Care Team Providers Care Dubbing Machine Operator Name Role Phone Yana hCadwick MD 21 Shreyas Puentes MD 3 Eden Hennessy MD PCP Encounter Details Care Team Description Date Type Department Roger Blue MD [address] [id number] 04/28/2018 Hospital [facility] Encounter [facility] [address] [phone] Social History Date Tobacco Use Types Packs/Day [...] FRACT FREE PLASMA (04/28/2018 4:53 PM CDT) [facility] Normetaphrine, 0.54 REFERENCE LAB Plasma Comment: Reference range: <0.90 Unit: nmol/L [facility], [address] [place] [address] Metanephrine,Pl <0.20 REFERENCE LAB asma Reference range: <0.50 Unit: nmol/L ADDITIONAL INFORMATION This test was developed and its performance characteristics determined by [facility] in a manner consistent with CLIA requirements. This test has not been cleared or approved by the U.S. Food and Drug Administration. [facility], [address] [place] [phone] Specimen Blood Performing Organization Address City/State/Zipcode Phone Number REFERENCE LAB REFERENCE LAB See results for address. * URIC ACID (04/28/2018 4:53 PM CDT) [facility] Uric Acid 6.0 4.0 - 8.0 MG/DL [facility] Specimen Blood Performing Organization Address [facility] Cent[facility]ode Phone Number [facility] [address] [place] [address] * THYROID STIMULATING HORMONE-TSH (04/28/2018 4:53 PM CDT) TSH 1.450 0.35 - 5.00 MCU/ML [facility] Specimen Blood Performing Organization Address [facility] Centercode Phone Number [facility] [address] [place] [phone] * RENIN-RANDOM (04/28/2018 4:53 PM CDT) Renin-Random 10 3 - 45 pg/mL [facility] Comment: The renin value is a new "direct" assay corresponding to antigen concentration rather than renin activity. The normal ratio for aldosterone to renin is 0.1-3.7. A ratio of greater than 3.7 is suggestive of aldosteronism. Specimen Blood Performing Organization Address [facility] Centercode Phone Number MAIN LAB [address] [place] [address] * PARATHYROID HORMONE (04/28/2018 4:53 PM CDT) PTH Hormone 160.2 (H) 10 - 65 PG/ML [facility] Specimen Blood Performing Organization Address [facility] Phone Number [facility] [address] [place] [phone] * CORTISOL,RANDOM (04/28/2018 4:53 PM CDT) Cortisol, 6.3 5.0 - 20.0 MCG/DL [facility] Random Specimen Blood Performing Organization Address [facility] Cent[facility]ode Phone Number [facility] [address] [place] [address] * COMPREHENSIVE METABOLIC PANEL (04/28/2018 4:53 PM [...] >60 >60 mL/min [facility] Comment: Kittitian The eGFR is not validated for use in drug dosing adjustments.Continue to use estimated creatinine clearance per dosing reference text.Please contact the Clinical Pharmacist for questions. eGFR >60 >60 mL/min [facility] Kittitian Comment: The eGFR is not validated for use in drug dosing adjustments.Continue to use estimated creatinine clearance per dosing reference text.Please contact the Clinical Pharmacist for questions. Specimen Blood Performing Organization Address City/[facility] Centercode Phone Number [facility] [address] [place] [address] * CBC (04/28/2018 4:53 PM CDT) White Blood 8.8 4.5 - 11.0 K/UL MAIN LAB Cells RBC 5.29 4.4 - 5.5 M/UL [facility] Hemoglobin 15.5 13.5 - 16.5 GM/DL MAIN LAB Hematocrit 46.4 40 - 50 % MAIN LAB MCV 87.8 80 - 100 FL MAIN LAB MCH 29.2 26 - 34 PG MAIN LAB MCHC 33.3 32.0 - 36.0 G/DL [facility] RDW 14.2 11 - 15 % MAIN LAB Platelet Count 184 150 - 400 K/UL MAIN LAB MPV 11.3 (H) 7 - 11 FL MAIN LAB Specimen Blood Performing Organization Address City/[facility] Centercode Phone Number [facility] [address] [place] [address] * ALDOSTERONE-RANDOM (04/28/2018 4:53 PM CDT) Aldosterone, 13 3 - 24 ng/dL MAIN LAB Random Specimen Blood Performing Organization Address City/State/Zipcode Phone Number MAIN LAB [address] [place] [address] documented in this encounter Visit Diagnoses Diagnosis Essential hypertension Unspecified essential hypertension documented in this encounter
--- OUTSIDE RECORDS SUMMARY | 2018-08-29 23:12 | XMS REPORT | Encounter Summary ---
Author Author [facility] Organization [facility] Address Unknown Phone Unavailable Care Team Providers Care Statistics Tutor Name Role Phone Yana Chadwick MD 21 Shreyas Puentes MD 3 Eden Hennessy MD PCP Reason for Visit * Reason Comments Hypertension Encounter Details Care Team Description Date Type Department Sonal Mariscal Hypertension 05/03/2018 Telephone [facility] [address] [place] [address] Social History Date Tobacco Use Types Packs/Day [...] had labs drawn this morning at [facility]. He states he w as instructed to go to [facility] from [facility]. Will request lab resu lts to be [...] to plan. Will recheck labs tomorrow at [place], [place]. * Telephone Encounter - Hellen Scott, MILDRED - 05/03/2018 4:47 PM CDT Mela Correa [facility] Nurse Rei Butcher, pt is MPE's [...] Blood Performing Organization Address City/State/Zipcode Phone Number [facility] [address] [place] [address] * BASIC METABOLIC PANEL (05/04/2018) Sodium 130 [facility] Potassium 3.7 [facility] Chloride 100 [facility] CO2 25 [facility] Blood Urea 16 [facility] Nitrogen Creatinine 1.32 [facility] Glucose 139 [facility] Calcium 9.9 [facility] eGFR Non 59 (L) >60 [facility] eGFR [facility] Namibian Anion Gap 13 [facility] Specimen Blood - Blood Narrative Performed At Performing Organization Address City/State/Zipcode Phone Number [facility] [address] [place] [address] documented in this encounter Visit Diagnoses Diagnosis Resistant hypertension - Primary documented in this encounter
--- OUTSIDE RECORDS SUMMARY | 2018-08-29 23:12 | XMS REPORT | Encounter Summary ---
Author Author [facility] Organization [facility] Address Unknown Phone Unavailable Care Team Providers Care Manager Unit Name Role Phone Yana Chadwick MD 21 Shreyas Puentes MD 3 Eden Hennessy MD PCP Reason for Referral * Consult, Test & Treat (Routine) Referred By Contact Referred To Contact Status Reason Specialty Diagnoses / Procedures Roger Blue MD [address] [place] [address] Pending Review Diagnoses Essential hypertension P rocedures REQUEST FOR CARDIOLOGY APPOINTMENT * Consult, Test & Treat (Routine) Referred By Contact Referred To Contact Status Reason Specialty Diagnoses / Procedures Saul Altamirano MD [address] [place] [address] New Request Procedures REQUEST FOR CARDIOLOGY APPOINTMENT Reason for Visit * Reason Comments Cardiac Eval HTN * Consult, Test & Treat (Routine) Referred By Contact Referred To Contact Status Reason Specialty Diagnoses / Procedures Saul Altamirano MD [address] [place] [address] New Request Procedures REQUEST FOR CARDIOLOGY APPOINTMENT Encounter Details Care Team Description Date Type Department Roger Blue MD [address] [place] [address] [phone] Cardiac Eval (HTN) 04/28/2018 Office Visit The [address] [place] [address] Social History Date Tobacco Use Types Packs/Day [...] pleasure to see you today! 1. Please pick up operator blood pressure cuff from pharmacy and send [...] in the meantime, please call MILDRED Willson [phone]. G ood to see you and take [...] implant- Advisa 02/20/16 PSVT (paroxysmal supraventricular tachycardia) (HCC) 11/02/2016 Resistant hypertension 11/02/2016 MELI (obstructive sleep [...] machine that works for him with his [facility] physician 7. We will work with [...] Plasma Comment: Reference range: <0.90 Unit: nmol/L [facility], [address] [place] [id number] Metanephrine,Pl <0.20 REFERENCE LAB asma Reference range: <0.50 Unit: nmol/L ADDITIONAL INFORMATION This test was developed and its performance characteristics determined by [facility] in a manner consistent with CLIA requirements. This test has not been cleared or approved by the U.S. Food and Drug Administration. [facility], [facility] [place] [address] Specimen Blood Performing Organization Address [facility] Phone Number REFERENCE LAB REFERENCE LAB See results for address. * CORTISOL,RANDOM (04/28/2018 4:53 PM CDT) Cortisol, 6.3 5.0 - 20.0 MCG/DL MAIN [facility] Random Specimen Blood Performing Organization Address [facility] Phone Number [facility] [address] [place] [address] * ALDOSTERONE-RANDOM (04/28/2018 4:53 PM CDT) Aldosterone, 13 3 - 24 ng/dL MAIN LAB Random Specimen Blood Performing Organization Address [facility] Phone Number [facility] [address] [place] [address] * RENIN-RANDOM (04/28/2018 4:53 PM CDT) Renin-Random 10 3 - 45 pg/mL MAIN LAB Comment: The renin value is a new "direct" assay corresponding to antigen concentration rather than renin activity. The normal ratio for aldosterone to renin is 0.1-3.7. A ratio of greater than 3.7 is suggestive of aldosteronism. Specimen Blood Performing Organization Address [facility] Phone Number [facility] [address] [place] [address] * URIC ACID (04/28/2018 4:53 PM CDT) Uric Acid 6.0 4.0 - 8.0 MG/DL [facility] Specimen Blood Performing Organization Address City/[facility] Phone Number [facility] [address] [place] [address] * PARATHYROID HORMONE (04/28/2018 4:53 PM CDT) PTH Hormone 160.2 (H) 10 - 65 PG/ML [facility] Specimen Blood Performing Organization Address [facility] Phone Number [facility] [address] [place] [address] * THYROID STIMULATING HORMONE-TSH (04/28/2018 4:53 PM CDT) TSH 1.450 0.35 - 5.00 MCU/ML [facility] Specimen Blood Performing Organization Address [facility] Phone Number [facility] [address] [place] [address] * COMPREHENSIVE METABOLIC PANEL (04/28/2018 4:53 PM [...] >60 >60 mL/min [facility] Comment: Iranian The eGFR is not validated for use in drug dosing adjustments.Continue to use estimated creatinine clearance per dosing reference text.Please contact the Clinical Pharmacist for questions. eGFR >60 >60 mL/min [facility] Iranian Comment: The eGFR is not validated for use in drug dosing adjustments.Continue to use estimated creatinine clearance per dosing reference text.Please contact the Clinical Pharmacist for questions. Specimen Blood Performing Organization Address City/[facility]/Zipcode Phone Number MAIN LAB [address] [place] [address] * CBC (04/28/2018 4:53 PM CDT) White [...] MAIN LAB Specimen Blood Performing Organization Address City/[facility]/Zipcode Phone Number MAIN LAB [address] [place] [address] documented in this encounter Visit Diagnoses Diagnosis Essential hypertension - Primary Unspecified essential hypertension documented in this encounter
--- OUTSIDE RECORDS SUMMARY | 2018-08-29 23:12 | XMS REPORT | Encounter Summary ---
Author Author [facility] Organization [facility] Address Unknown Phone Unavailable Care Team Providers Care Credit Collections Specialist Name Role Phone Yana Chadwick MD 21 Shreyas Puentes MD 3 Eden Hennessy MD PCP Encounter Details Care Team Description Date Type Department Cindy Swan RN 04/25/2018 Telephone The [facility] [address] [place] [address] Social History Date Tobacco Use [...]
--- OUTSIDE RECORDS SUMMARY | 2018-08-29 23:12 | XMS REPORT | Encounter Summary ---
Author Author [facility] Organization [facility] Address Unknown Phone Unavailable Care Team Providers Care Production Welding Supervisor Name Role Phone Yana Chadwick MD 21 Shreyas Puentes MD 3 Eden Hennessy MD PCP Reason for Referral * Consult, Test & Treat (Routine) Referred By Contact Referred To Contact Status Reason Specialty Diagnoses / Procedures Saul Altamirano MD [address] [facility] [place] [address] Rb - [facility] [address] [facility] [address] [place] [address] New Request Specialty Services Sleep Center Diagnoses Required Essential hypertension Scheduling Instructions Neck circumference may be a required measurement for sleep study prior authorization and/or claim payment. Has neck circumference been obtained? no Reason for Visit * Reason Comments Hypertension Encounter Details Care Team Description Date Type Department Alejandro West RN Hypertension 04/19/2018 Telephone The [facility] [address] [place] [address] Social History Date Tobacco Use Types Packs/Day [...] 2:37 PM CDT Per Cindy Swan via [employer]... viola white... keeley needs to take clonidine [...] faxed the the Central Referral fax # [phone]. I gave him the number for the Sleep Medicine Clinic ([phone]); I told hi m to call to [...] elevated, they plan on admitting him to [facility] in [place]. He states, if admitted, he wants to be admitted to . I told him that the medical staff at [facility] can seek transfer to if they would [...] can r equest records. Will route to [facility] for review with MPE - increase [...]
--- OUTSIDE RECORDS SUMMARY | 2018-08-29 23:12 | XMS REPORT | Encounter Summary ---
Author Author [facility] Organization [facility] Address Unknown Phone Unavailable Care Team Providers Care Comb Winder Name Role Phone Yana Chadwick MD 21 Shreyas Puentes MD 3 Eden Hennessy MD PCP Reason for Referral * Pain Authorization (Routine) Referred By Contact Referred To Contact Status Reason Specialty Diagnoses / [place] [address] [place] [address] Geoff Spivey, DO [address] [facility] [place] [address] Closed Neurology Diagnoses History of lipoma Sarcoma (HCC) Pain of left lower leg P rocedures SPINE EMG PROCEDURE Reason for Visit * Reason Comments Pain Encounter Details Care Team Description Date [place] [address] [place], [place] [address] History of lipoma (Primary Dx); Sarcoma (HCC); Pain of left lower leg 05/02/2018 Office Visit [facility] [address] [place], [place] [address] Social History Date Tobacco Use Types Packs/Day [...] How to reach me: Please send a [facility] message to the Spine Center or leave a voicemail Amanda Plummer at [phone] How to get a medication refill: Please use the [employer] Refill request or cont act your pharmacy directly to request medication refills. How to receive your test results: If you have signed up for [employer], you will receive your test results and messages from me this way. Otherwise, you will get a phone call or letter. If you are expecting results and have not heard from my office within 2 weeks of your testing, please send a G[employer]henea message or call my office. Scheduling: Our scheduling phone number if you are a Spine Center patient is [phone]. If you are a cancer center patient, please call the cancer center you go to for scheduling. Appointment Reminders on your cell phone: Make sure we have your cell phone n umber, and Text [facility] to [phone]. Support for many chronic illnesses is available through [facility]: turnin [facility]point[facility]org or [phone]. For questions on nights, weekends or holidays, call the ferryboat operator helper at , and ask for the doctor library circulation technician for Physical Medicine and Rehab. documented in this encounter Progress Notes * Lexi Amezcua MD - 05/02/2018 11:00 AM CDT ONCOLOGY REHAB HISTORY AND PHYSICAL Chief Complaint Patient presents with Left Thigh - Pain Subjective HISTORY OF PRESENT ILLNESS: Mr. Velásquez is a pleasant 47 y.o. male with a history of LLE lipoma s/p resection x 4 in [place] with the last in 2015 who is seen on 05/02/2018 at the [facility] for follow up evaluation and treatment [...] LLE lipoma s/p re section x4 in [place] with the last in 2016. History and [...] but discussed that we do not do snf opioid mgmt at the spine center. We [...]
--- OUTSIDE RECORDS SUMMARY | 2018-08-29 23:13 | XMS REPORT | Encounter Summary ---
Author Author [facility] Organization [facility] Address Unknown Phone Unavailable Care Team Providers Care Supervisor Screen Making Name Role Phone Yana Chadwick MD 21 Shreyas Puentes MD 3 Eden Hennessy MD PCP Encounter Details Care Team Description Date Type Department Sawyer Dean Sinus node dysfunction (HCC) (Primary Dx); Cardiac device in situ 04/07/2018 Orders Only The [facility] [address] [place] [address] Social History Date Tobacco Use Types Packs/Day [...] Auto for 99 Occurrences starting 04/07/2018 until 04/07/2024, 1 completed DEVICE EVALUATION - Device Check Routine Sinus node dysfunction REMOTE PPM (HCC) Cardiac device in situ documented as of this encounter Results * DEVICE EVALUATION - REMOTE PPM (08/24/2018 3:27 PM CDT) Generator Medtronic OTHER OUTSIDE Fur Grader LAB Generator Model [id number] OTHER OUTSIDE # LAB Generator [id number] OTHER OUTSIDE Serial # LAB Generator 02/20/16 OTHER OUTSIDE Implnat Date LAB Generator Yes OTHER OUTSIDE Investigational LAB Device Mode aair/dddr OTHER OUTSIDE LAB Mode Switch On OTHER OUTSIDE Status LAB Lower Rate 60 OTHER OUTSIDE Limit LAB Mode Switch 171 OTHER OUTSIDE (bpm) LAB Atrial Lead Medtronic OTHER OUTSIDE Fur Grader LAB Atrial Lead 407,652 OTHER OUTSIDE Model # LAB Atrial Lead [id number] OTHER OUTSIDE Serial # LAB Atrial Lead 02/20/16 OTHER OUTSIDE Implant Date LAB Atrial Lead Yes OTHER OUTSIDE Investigational LAB RV Lead Medtronic OTHER OUTSIDE Fur Grader LAB RV Lead Model # 5076-58 OTHER OUTSIDE LAB RV Lead Serial [id number] OTHER OUTSIDE # LAB RV Lead Implant 02/20/16 OTHER OUTSIDE Date LAB RV Lead Yes OTHER OUTSIDE Investigational LAB Device Type DDD-PM OTHER OUTSIDE LAB High V Rate 162 OTHER OUTSIDE Detect LAB Pacemaker No OTHER OUTSIDE Dependant LAB Date of Last 04/07/18 OTHER OUTSIDE Programming LAB EP Device MAC OTHER OUTSIDE Followed By LAB Device [employer] OTHER OUTSIDE [place] [facility] Transmitter Compatible Known Diagnosed No OTHER [...] period: 07/12/18 to 10/11/18 Initial remote with [facility] [08/24/2018 3:34:38 PM - DADA SCRUGGS] EP [...]
--- OUTSIDE RECORDS SUMMARY | 2018-08-29 23:13 | XMS REPORT | Encounter Summary ---
Author Author [facility] Organization [facility] Address Unknown Phone Unavailable Care Team Providers Care Blade Boner Name Role Phone Yana Chadwick MD 21 Shreyas Puentes MD 3 Eden Hennessy MD PCP Reason for Referral * Consult, Test & Treat (Routine) Referred By Contact Referred To Contact Status Reason Specialty Diagnoses / Procedures Saul Altamirano MD [address] [place] [address] Pending Review Procedures REQUEST FOR CARDIOLOGY APPOINTMENT * Consult, Test & Treat (Routine) Referred By Contact Referred To Contact Status Reason Specialty Diagnoses / Procedures Saul Altamirano MD [address] [place] [address] [facility] [address] [place] [address] No Auth Needed Cardiology Diagnoses Essential hypertension Sinus node dysfunction (HCC) NSVT (nonsustained ventricular tachycardia) (HCC) Bruit P rocedures PV RENAL ARTERY DUPLEX SCAN WV DUP-SCAN ARTL ARGENIS ABDL/PEL/SCROT&/RP R ORGN COM * Consult, Test & Treat (Routine) Referred By Contact Referred To Contact Status Reason Specialty Diagnoses / Procedures Saul Altamirano MD [address] [place] [address] New Request Procedures REQUEST FOR CARDIOLOGY APPOINTMENT * Consult, Test & Treat Referred By Contact Referred To Contact Status Reason Specialty Diagnoses / Procedures Saul Altamirano MD [address] [place] [address] [address] No Auth Needed Cardiology Procedures REQUEST FOR CARDIOLOGY APPOINTMENT Reason for Visit * Reason Comments Cardiac Eval myocarditis, sinis node dysfunction, essential hypertension * Consult, Test & Treat Referred By Contact Referred To Contact Status Reason Specialty Diagnoses / Procedures Saul Altamirano MD [address] [place] [address] [place] [address] No Auth Needed Cardiology Procedures REQUEST FOR CARDIOLOGY APPOINTMENT Encounter Details Care Team Description Date Type Department Saul Altamirano MD [address] [place] [address] [phone] Cardiac Eval (myocarditis, sinis node dysfunction, essential hypertension) 04/07/2018 [place] [address] Social History Date Tobacco Use Types Packs/Day [...] Comments Vital Sign 140/102 04/07/2018 11:31 AM DOUPER Blood Pressure 73 04/07/2018 11:31 AM DOUPER Pulse - - Temperature - - Respiratory Rate - - Oxygen Saturation - - Inhaled Oxygen Concentration 136.1 kg (300 lb) 04/07/2018 11:31 AM DOUPER Weight 170.2 cm (5' 7") 04/07/2018 11:31 AM DOUPER Height 46.99 04/07/2018 11:31 AM DOUPER Body Mass Index documented in this encounter [...] Cindy Swan RN - 04/07/2018 11:00 AM DOUPER start clonidine 0.1 mg daily - this [...] ask that you follow up as mirlande w: For NON-URGENT questions please contact us through your CompleteSet account. For all medication refills please contact your pharmacy or send a request raegan Keita. For all questions that may need to be addressed urgently please call the nursing triage line at [phone] Wednesday - Wednesday 8-5 only. Please leave a detailed m essage with your name, date of , and reason for your call. To schedule an appointment call [phone]. Please allow 10-15 business days for the results of any testing to be reviewed. Please call our office if you have not heard from a nurse within this time frame . ER documented in this encounter Progress Notes * Saul Altamirano MD - 04/07/2018 11:00 AM DOUPER Date of Service: 04/07/2018 Trent Velásquez Jr. is a 47 y.o. male. HPI I had the pleasure of seeing your patient Trent Velásquez Jr. in the [facility] as a part of the [facility] office today for follow up [...] Sarcoma followe d by Dr. Puentes at [facility]; Obesity; Tobacco abuse NOTE--pthas stainless steel filter [...] smoking cessation programs such as going to [facility] if necessary. I also anticipate [...] -- 03/2015: Cardiac Catheterization by Dr. Calloway [facility] -- 03/2015: Medtronic LinQ Implantable Monitor [...] leads were noted. Plan was tocontact the petroleum products sales representative, Dr. Leander Lopez specializes in roya coidosis, etc., have MrHollis had worked in more urgently for an office visit to [facility]. --I spoke with Dr. LEE. He will be seeing Mr. Velásquez sometime early next asuncion k. I also spoke with the patient himself about these results and to be expecti ng a call from Dr. LEE. I also contacted the patient's primary product development scientist Dr. Buorgeois and let them know of the results and the plan accordingly. He was appreciative that Dr. Lee would be seeing the patient. -- 03/08/17: OV (Dr. Altamirano): Initiated Lisinopril 20 mg dailyfor BP control a nd pt was instructed to follow up with Dr. Lee or a Provider Relations Manager -- 04/28/17: Pulmonary/myocarditis/? sarcoidosis Consultation with [...] with Dr. Lee regarding myocarditis. -- 08/06/17: EP-SEMICONDUCTOR TECHNICIAN OV (Elizabeth): Pt reported brief, fleeting chest [...] asked him to follow up with his Provider Relations Manager regarding his Methotrexate. -- 09/16/17: Stopped [...] 08/06/2017 Coxsackie viruses 04/28/2017 Sarcoma ([facility]) 04/28/2017 Tobacco abuse 04/28/2017 Myocarditis ([facility]) 02/26/2017 NSVT (nonsustained ventricular tachycardia) ([facility]) 02/26/2017 Cardiac device in situ 01/14/2017 Sinus node dysfunction ([facility]) 11/02/2016 Dr. Valdez S/p PPM implant- Advisa 02/20/16 PSVT (paroxysmal supraventricular tachycardia) ([facility]) 11/02/2016 Hypertension 11/02/2016 MELI (obstructive [...] acting as scribe for Saul Altamirano M.D. ER documented in this encounter Plan of Treatment [...] Date/Time Associated Diagnosis ECG-SCAN 04/07/2018 12:00 AM DOUPER documented in this encounter Results * PV RENAL ARTERY DUPLEX SCAN (04/12/2018 2:06 PM DOUPER) AORTIC PROXIMAL 0.6 m/s OTHER OUTSIDE VELOCITY [...] OUTSIDE LAB * ECG-SCAN (04/07/2018 12:00 AM DOUPER) Narrative Performed At Ordered by an unspecified provider. documented in this encounter Visit Diagnoses Diagnosis Essential hypertension - Primary Unspecified essential hypertension Sinus node dysfunction (HCC) Sinoatrial node dysfunction NSVT (nonsustained ventricular tachycardia) (HCC) Paroxysmal ventricular tachycardia Bruit Other symptoms involving cardiovascular system documented in this encounter
--- OUTSIDE RECORDS SUMMARY | 2018-08-29 23:13 | XMS REPORT | Encounter Summary ---
Author Author [facility] Organization [facility] Address Unknown Phone Unavailable Care Team Providers Care Corporate Lawyer Name Role Phone Yana Chadwick MD 21 Shreyas Puentes MD 3 Eden Hennessy MD PCP Reason for Referral * Consult, Test & Treat (Routine) Referred By Contact Referred To Contact Status Reason Specialty Diagnoses / Procedures Saul Altamirano MD [address] [place] [address] Cv [facility] [address] [address] No Auth Needed Cardiology Diagnoses Essential hypertension Sinus node dysfunction (HCC) NSVT (nonsustained ventricular tachycardia) (HCC) Bruit P rocedures PV RENAL ARTERY DUPLEX SCAN AK DUP-SCAN ARTL ARGENIS ABDL/PEL/SCROT&/RP R ORGN COM * Consult, Test & Treat (Routine) Referred By Contact Referred To Contact Status Reason Specialty Diagnoses / Procedures Saul Altamirano MD [address] [address] Cvm [facility] [address] [address] No Auth Needed Cardiology Diagnoses Essential hypertension Sinus node dysfunction (HCC) NSVT (nonsustained ventricular tachycardia) (HCC) Bruit P rocedures PV RENAL ARTERY DUPLEX SCAN AK DUP-SCAN ARTL ARGENIS ABDL/PEL/SCROT&/RP R ORGN COM Reason for Visit * Consult, Test & Treat (Routine) Referred By Contact Referred To Contact Status Reason Specialty Diagnoses / Procedures Saul Altamirano MD [address] [place] [address] Cvm Bhg Echopv [address] [address] No Auth Needed Cardiology Diagnoses Essential hypertension Sinus node dysfunction (HCC) NSVT (nonsustained ventricular tachycardia) (HCC) Bruit P rocedures PV RENAL ARTERY DUPLEX SCAN AK DUP-SCAN ARTL ARGENIS ABDL/PEL/SCROT&/RP R ORGN COM Encounter Details Care Team Description Date Type Department Saul Altamirano MD [address] [place] [address] 04/12/2018 [facility] [address] [address] Social History Date Tobacco Use Types Packs/Day [...] Comments Vital Sign 152/89 04/12/2018 2:06 PM ROLL REPAIRER Blood Pressure - - Pulse - - Temperature - - Respiratory Rate - - Oxygen Saturation - - Inhaled Oxygen Concentration 133.1 kg (293 lb 6.4 oz) 04/12/2018 2:06 PM ROLL REPAIRER Weight 170.2 cm (5' 7") 04/12/2018 2:06 PM ROLL REPAIRER Height 45.95 04/12/2018 2:06 PM ROLL REPAIRER Body Mass Index documented in this encounter [...] Routine 04/12/2018 Essential hypertension SCAN 2:06 PM ROLL REPAIRER Sinus node dysfunction (HCC) NSVT (nonsustained ventricular tachycardia) (HCC) Bruit documented in this encounter Results * PV RENAL ARTERY DUPLEX SCAN (04/12/2018 2:06 PM ROLL REPAIRER) AORTIC PROXIMAL 0.6 m/s OTHER OUTSIDE VELOCITY [...]
--- OUTSIDE RECORDS SUMMARY | 2018-08-29 23:13 | XMS REPORT | Encounter Summary ---
Author Author [facility] Organization [facility] Address Unknown Phone Unavailable Care Team Providers Care Forester Silviculture Name Role Phone Yana Chadwick MD 21 Shreyas Puentes MD 3 Eden Hennessy MD PCP Reason for Visit * Reason Comments Pain Encounter Details Care Team Description Date Type [place] [address] [place] [address] Chronic pain syndrome (Primary Dx); History of lipoma; Sarcoma (HCC) 04/11/[address] [facility] [address] [place], [place] [phone] Social History Date Tobacco Use Types Packs/Day [...] Comments Vital Sign 152/89 04/11/2018 10:31 AM TRAVELING ENGINEER Blood Pressure 81 04/11/2018 10:31 AM TRAVELING ENGINEER Pulse - - Temperature - - Respiratory Rate 97% 04/11/2018 10:31 AM TRAVELING ENGINEER Oxygen Saturation - - Inhaled Oxygen Concentration 136.1 kg (300 lb) 04/11/2018 10:31 AM TRAVELING ENGINEER Weight 170.2 cm (5' 7") 04/11/2018 10:31 AM TRAVELING ENGINEER Height 46.99 04/11/2018 10:31 AM TRAVELING ENGINEER Body Mass Index documented in this encounter [...] Lexi Amezcua MD - 04/11/2018 10:30 AM TRAVELING ENGINEER ONCOLOGY REHAB HISTORY AND PHYSICAL Chief Complaint Patient presents with Left Thigh - Pain Subjective HISTORY OF PRESENT ILLNESS: Mr. Velásquez is a pleasant 47 y.o. male with a history of LLE lipoma s/p resection x 4 in [place] with the last in 2015 who is seen on 04/11/2018 at the [facility] for follow up evaluation and treatment [...] LLE lipoma s/p re section x4 in [place] with the last in 2015. History and [...] be reasonable/he should ben edule an appointment. 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
--- OUTSIDE RECORDS SUMMARY | 2018-08-29 23:14 | XMS REPORT | Encounter Summary ---
Author Author [facility] Organization [facility] Address Unknown Phone Unavailable Care Team Providers Care Triage Assistant Name Role Phone Yana Chadwick MD 21 Shreyas Puentes MD 3 Eden Hennessy MD PCP Reason for Referral * Radiology Services (Routine) Referred By Contact Referred To Contact Status Reason Specialty Diagnoses / [place] [address] [place] [address] New Request Radiology Diagnoses History of lipoma Sarcoma (HCC) Complex regional pain syndrome type 2 of left lower extremity P rocedures NM BONE SPECT * Radiology Services (Routine) Referred By Contact Referred To Contact Status Reason Specialty Diagnoses / [place] [address] [place] [address] New Request Radiology Diagnoses History of lipoma Sarcoma (HCC) Complex regional pain syndrome type 2 of left lower extremity P rocedures NM BONE SPECT Reason for Visit * Radiology Services (Routine) Referred By Contact Referred To Contact Status Reason Specialty Diagnoses / [place] [address] [place] [address] [address] [place] [address] No Auth Needed Radiology Diagnoses History of lipoma Sarcoma (HCC) Complex regional pain syndrome type 2 of left lower extremity P rocedures NM BONE SCAN WHOLEBODY NM BONE SCAN THREE PHASE Encounter Details Care Team Description Date Type [place] [address] [place] [address] [phone] 03/09/2018 [facility] [address] [place] [address] Social History Date Tobacco Use Types Packs/Day [...] Routine 03/09/2018 History of lipoma 2:52 PM WHOLESALE BUYER Sarcoma (HCC) Complex regional pain syndrome type 2 of left lower extremity NM BONE SPECT Routine 03/09/2018 History of lipoma 2:52 PM WHOLESALE BUYER Sarcoma (HCC) Complex regional pain syndrome type 2 of left lower extremity documented in this encounter Results * NM BONE SCAN WHOLEBODY (03/09/2018 2:52 PM WHOLESALE BUYER) Specimen Impressions Performed At 1. No scintigraphic [...] Interface, Radiant Results - 03/09/2018 3:56 PM WHOLESALE BUYER BONE SCINTIGRAPHY (THREE-PHASE) Clinical indication: 47-year-old male, [...] * NM BONE SPECT (03/09/2018 2:52 PM WHOLESALE BUYER) Specimen Impressions Performed At 1. No scintigraphic [...] Interface, Radiant Results - 03/09/2018 3:56 PM WHOLESALE BUYER BONE SCINTIGRAPHY (THREE-PHASE) Clinical indication: 47-year-old male, [...]
--- OUTSIDE RECORDS SUMMARY | 2018-08-29 23:14 | XMS REPORT | Encounter Summary ---
Author Author [facility] Organization [facility] Address Unknown Phone Unavailable Care Team Providers Care Shipping Assistant Name Role Phone Yana Chadwick MD 21 Shreyas Puentes MD 3 Eden Hennessy MD PCP Encounter Details Care Team Description Date Type Department SamiShama RN High risk medication use; Sarcoidosis 03/11/2018 Orders Only The [address] [phone] Social History Date Tobacco Use Types Packs/Day [...] LAB eGFR Non 90 OTHER OUTSIDE LAB Barbadian eGFR 105 OTHER OUTSIDE Barbadian LAB Specimen Blood - Blood Narrative Performed At Performing Organization Address City/State/Zipcode Phone Number OTHER OUTSIDE LAB documented in this encounter Visit Diagnoses Diagnosis High risk medication use Encounter for long-term (current) use of other medications Sarcoidosis documented in this encounter
--- OUTSIDE RECORDS SUMMARY | 2018-08-29 23:14 | XMS REPORT | Encounter Summary ---
Author Author [facility] Organization [facility] Address Unknown Phone Unavailable Care Team Providers Care Home Mortgage Disclosure Act Specialist Name Role Phone Yana Chadwick MD 21 Shreyas Puentes MD 3 Eden Hennessy MD PCP Encounter Details Care Team Description Date Type Department Chapin Soto MD 4000 [place], [place] [phone] 04/05/2018 [facility] [id number] [place] [phone] Social History Date Tobacco Use Types Packs/Day [...] Routine 04/05/2018 Pain INJ RAD 10:50 AM HARNESS PREPARER documented in this encounter Results * FLUORO GUIDANCE FOR SPINE INJ RAD (04/05/2018 10:50 AM HARNESS PREPARER) Specimen Narrative Performed At This order has been auto finalized and does not contain a result. CYRUS MCWILLIAMS Performing Organization Address City/State/Zipcode Phone Number CYRUS MCWILLIAMS documented in this encounter Visit Diagnoses Diagnosis Pain Generalized pain documented in this encounter
--- OUTSIDE RECORDS SUMMARY | 2018-08-29 23:14 | XMS REPORT | Encounter Summary ---
Author Author [facility] Organization [facility] Address Unknown Phone Unavailable Care Team Providers Care Bricklayer'S Assistant Name Role Phone Yana Chadwick MD 21 Shreyas Puentes MD 3 Eden Hennessy MD PCP Reason for Visit * Reason Comments Worsening Symptoms Encounter Details Care Team Description Date Type Department Leander Tovar MD 1999 [facility] Orth[facility]ilion [address] [place] [address] Worsening Symptoms 03/18/2018 Telephone [facility] [address] [place] [address] Social History Date Tobacco Use [...] Leander Tovar MD - 03/18/2018 4:50 PM POLICE OFFICER I contact the patient to notify him [...] that there is the possibility that the ky rdia PET/CT could be a false positive. Since [...] He was appreciative of t he call. CE OFFICER documented in this encounter Plan of Treatment Not on filedocumented as of this encounter Visit Diagnoses Not on filedocumented in this encounter
--- OUTSIDE RECORDS SUMMARY | 2018-08-29 23:14 | XMS REPORT | Encounter Summary ---
Author Author [facility] Organization [facility] Address Unknown Phone Unavailable Care Team Providers Care Hydraulic Hammer Operator Name Role Phone Yana Chadwick MD 21 Shreyas Puentes MD 3 Eden Hennessy MD PCP Reason for Referral * Consult, Test & Treat (Routine) Referred By Contact Referred To Contact Status Reason Specialty Diagnoses / Procedures Leander Tovar MD 1999 [facility] Orth[facility] Pavilion Lvl [address] [place] [address] [facility] [address] [place] [address] New Request Specialty Services Pulmonology Diagnoses Required CPAP (continuous positive airway pressure) dependence MELI (obstructive sleep apnea) Scheduling Instructions Please schedule with sleep team next available Reason for Visit * Reason Comments General Question Encounter Details Care Team Description Date Type Department Leander Tovar MD 1999 [facility] Ortho/Med Pavilion Lvl [address] [place] [address] General Question 04/05/2018 Telephone [facility] [address] [place] [address] Social History Date Tobacco Use [...] Beto Reynaga RN - 04/05/2018 2:51 PM REFERRAL CLERK Pt lvm requesting a call back. Called [...] understanding and appreciative of the return call. RRAL CLERK documented in this encounter Plan of Treatment [...]
--- OUTSIDE RECORDS SUMMARY | 2018-08-29 23:14 | XMS REPORT | Encounter Summary ---
Author Author [facility] Organization [facility] Address Unknown Phone Unavailable Care Team Providers Care Director Of Occupational Health Name Role Phone Yana Chadwick MD 21 Shreyas Puentes MD 3 Eden Hennessy MD PCP Reason for Visit * Reason Comments Pain Encounter Details Care Team Description Date Type Department Chapin Soto MD 4000 [facility] Spine [place], [place] [phone] Complex regional pain syndrome type 1 of left lower extremity (Primary Dx) 04/05/2018 Procedure visit [facility] [address] [place] [phone] Social History Date Tobacco Use Types Packs/Day [...] Comments Vital Sign 160/95 04/05/2018 11:09 AM MERCHANDISE COORDINATOR Blood Pressure 88 04/05/2018 11:09 AM MERCHANDISE COORDINATOR Pulse 36.7 C (98.1 F) 04/05/2018 10:57 AM MERCHANDISE COORDINATOR Temperature 16 04/05/2018 10:06 AM MERCHANDISE COORDINATOR Respiratory Rate 99% 04/05/2018 11:09 AM MERCHANDISE COORDINATOR Oxygen Saturation - - Inhaled Oxygen Concentration 127 kg (280 lb) 04/05/2018 10:06 AM MERCHANDISE COORDINATOR Weight 170.2 cm (5' 7") 04/05/2018 10:06 AM MERCHANDISE COORDINATOR Height 43.85 04/05/2018 10:06 AM MERCHANDISE COORDINATOR Body Mass Index documented in this encounter [...] Mora Amezcua, MILDRED - 04/05/2018 10:00 AM MERCHANDISE COORDINATOR Procedure Completed Today: Other LEFT LUMBAR SYMPATHETIC [...] p.m., on weekends or holidays please call [phone] and ask to have the resident physician claims correspondence clerk for the physician p aged or go [...] medications were used: Bupivicaine and Contrast Dye HANDISE COORDINATOR documented in this encounter Progress Notes * Chapin Soto MD - 04/05/2018 10:00 AM MERCHANDISE COORDINATOR SPINE CENTER INTERVENTIONAL PAIN PROCEDURE HISTORY AND [...] lower extremity PLAN: Left lumbar sympathetic block HANDISE COORDINATOR * Brooklynn Heaton RN - 04/05/2018 10:00 AM MERCHANDISE COORDINATOR Pain Procedure Plan Of Care Risk of injury related to procedure Patient identification, allergies verified, fall precautions implemented Risk of injury and impaired skin integrity Positioning devices applied as appropriate for procedure, patient transported [facility] staff assistance Management of Pain Pain assessment [...] their stay. Alleviation of patient anxiety exhibited. HANDISE COORDINATOR documented in this encounter Procedure Notes * Chapin Soto MD - 04/05/2018 10:00 AM MERCHANDISE COORDINATOR Associated Order(s): Nerve Block Post-Procedure Diagnose(s): Complex [...] given by: patient Alternatives discussed: alternative treatment Cuervo Protocol: Relevant documents: relevant documents present and verified Test results: test results available and properly labeled Imaging studies: imaging studies available Required items: required blood products, implants, devices, and special equipmen t available Site marked: the operative site was marked Time out: Immediately prior to procedure a "time out" was called to verify the c orrect patient, procedure, equipment, production support developer and site/side marked as requ ired Procedures Details: Prep: 2% chlorhexidine Patient position: prone Guidance: fluoroscopy Medications administered: 8 mL bupivacaine PF 0.25 % Outcome: Pain improved Estimated blood loss: none or minimal Specimens: none Patient tolerated the procedure well with no immediate complications. Pressure w as applied, and hemostasis was accomplished. HANDISE COORDINATOR documented in this encounter Plan of Treatment Not on filedocumented as of this encounter Procedures Comments Procedure Name Priority Date/Time Associated Diagnosis AK INJECTION ANES Routine 04/05/2018 Complex regional pain LMBR/THRC PARAVERTBRL 10:00 AM MERCHANDISE COORDINATOR syndrome type 1 of left SYMPATHETIC lower extremity documented in this encounter Results * Nerve Block (04/05/2018 10:00 AM MERCHANDISE COORDINATOR) Narrative Performed At Chapin Soto MD 04/05/20184:30 PM OTHER OUTSIDE LAB Nerve Block Nerve: lumbar sympathetic Laterality: left Consent: Consent obtained: verbal and written Consent given by: patient Alternatives discussed: alternative treatment Cuervo Protocol: Relevant documents: relevant documents present and verified Test results: test results available and properly labeled Imaging studies: imaging studies available Required items: required blood products, implants, devices, and special equipment available Site marked: the operative site was marked Time out: Immediately prior to procedure a "time out" was called to verify the correct patient, procedure, equipment, production support developer and site/side marked as required Procedures Details: [...] Medication Order MAR Action 04/05/2018 10:49 AM MERCHANDISE COORDINATOR 10 mL bupivacaine PF (MARCAINE) 0.25 % Given injection 10 mL 10 mL, Block, ONCE, 1 dose, 04/05/18 at 1100 04/05/2018 4:30 PM MERCHANDISE COORDINATOR 8 mL bupivacaine PF (MARCAINE) 0.25 % Given injection 8 mL 8 mL, Injection, ONCE PRN, 1 dose, Starting 04/05/18 at 1630, Until 04/05/18 at 1630 04/05/2018 10:37 AM MERCHANDISE COORDINATOR 2.5 mL iopamidol IT 200 (ISOVUE-M 200) Given injection 2.5 mL 2.5 mL, Epidural, ONCE, 1 dose, 04/05/18 at 1045, NOTE: This is a HIGH ALERT Medication., documented in this encounter
--- OUTSIDE RECORDS SUMMARY | 2018-08-29 23:14 | XMS REPORT | Encounter Summary ---
Author Author [facility] Organization [facility] Address Unknown Phone Unavailable Care Team Providers Care Unit Director Name Role Phone Yana Chadwick MD 21 Shreyas Puentes MD 3 Eden Hennessy MD PCP Encounter Details Care Team Description Date Type Department Saul Altamirano MD [address] [phone] 04/07/2018 [facility] [address] [phone] Social History Date Tobacco Use Types Packs/Day [...] PPM Routine 04/07/2018 Other myocarditis, 9:25 AM DATA ENTRY MACHINE OPERATOR unspecified chronicity (HCC) Sinus node dysfunction (HCC) Essential hypertension documented in this encounter Results * DEVICE EVALUATION - PPM (04/07/2018 9:25 AM DATA ENTRY MACHINE OPERATOR) Generator [employer]tronic OTHER OUTSIDE Material Loader LAB Generator Model [id number] OTHER OUTSIDE # LAB Generator [id number] OTHER OUTSIDE Serial # LAB Generator 02/20/16 OTHER OUTSIDE Implnat Date LAB Generator Yes OTHER OUTSIDE Investigational LAB Device Mode aair/dddr OTHER OUTSIDE LAB Mode Switch On OTHER OUTSIDE Status LAB Lower Rate 60 OTHER OUTSIDE Limit LAB Mode Switch 171 OTHER OUTSIDE (bpm) LAB Atrial Lead [employer] OTHER OUTSIDE Material Loader LAB Atrial Lead [id number] OTHER OUTSIDE Model # LAB Atrial Lead [id number] OTHER OUTSIDE Serial # LAB Atrial Lead 02/20/16 OTHER OUTSIDE Implant Date LAB Atrial Lead Yes OTHER OUTSIDE Investigational LAB RV Lead [employer]tronic OTHER OUTSIDE Material Loader LAB RV Lead Model # 5076-58 OTHER OUTSIDE LAB RV Lead Serial [id number] OTHER OUTSIDE # LAB RV Lead Implant [...] By LAB Device [employer] OTHER OUTSIDE [place] LAB Transmitter Compatible Known Diagnosed No OTHER [...] Monitoring? LAB -VS% 65.4 OTHER OUTSIDE LAB -SLAG WHEELER% <1 OTHER OUTSIDE LAB -VS% 34.5 OTHER OUTSIDE LAB AP-SLAG WHEELER% <1 OTHER OUTSIDE LAB # Mode S. [...] to 1.5V. Pt no longer follows with collar padder [facility] in [place], [place]. Sarah Elaine flagged to enroll in [facility]. Reviewed with MPE in clinic and routed check for cosign. Performing Organization Address City/State/Zipcode Phone Number OTHER OUTSIDE LAB documented in this encounter Visit Diagnoses Diagnosis Other myocarditis, unspecified chronicity (HCC) Sinus node dysfunction (HCC) Sinoatrial node dysfunction Essential hypertension Unspecified essential hypertension documented in this encounter
--- OUTSIDE RECORDS SUMMARY | 2018-08-29 23:15 | XMS REPORT | Encounter Summary ---
Author Author [facility] Organization [facility] Address Unknown Phone Unavailable Care Team Providers Care Filter Cleaner Name Role Phone Yana Chadwick MD 21 Shreyas Puentes MD 3 Eden Hennessy MD PCP Reason for Referral * Pain Authorization (Routine) Referred By Contact Referred To Contact Status Reason Specialty Diagnoses / Procedures Elizabeth Pollack, BRIDGER [address] Sherley Cruz MD [facility] [address] Zzicc Spn Anesth Pain [address] [place] [address] Closed Anesthesia Pain Diagnoses Complex regional pain syndrome type 1 of left lower extremity Neuropathic pain P rocedures [facility] NERVE BLOCK [facility]INIC Reason for Visit * Reason Comments Other 8 wk fuv Pain Pain Encounter Details Care Team Description Date Type Department Chapin Soto MD 4000 Sherley Cruz [facility] [place] [address] [phone] Complex regional pain syndrome type 1 of left lower extremity (Primary Dx); Neuropathic pain 03/08/2018 Office Visit [facility] [address] [place] [address] Social History Date Tobacco Use Types Packs/Day [...] - - Temperature 22 03/08/2018 2:43 PM PALEOLOGY PROFESSOR Respiratory Rate - - Oxygen Saturation - - Inhaled Oxygen Concentration 123.8 kg (273 lb) 03/08/2018 2:43 PM PALEOLOGY PROFESSOR Weight 170.2 cm (5' 7") 03/08/2018 2:43 PM PALEOLOGY PROFESSOR Height 42.76 03/08/2018 2:43 PM PALEOLOGY PROFESSOR Body Mass Index documented in this encounter [...] Chapin Soto MD - 03/08/2018 3:30 PM PALEOLOGY PROFESSOR SPINE CENTER CLINIC NOTE SUBJECTIVE: Patient presents [...] by rest, prescribed medications Patient currently taking [place] 2 tabs, about 5-6 tabs per day, [...] is schedule a left lumbar sympathetic block OLOGY PROFESSOR documented in this encounter Plan of Treatment [...]
--- OUTSIDE RECORDS SUMMARY | 2018-08-29 23:15 | XMS REPORT | Encounter Summary ---
Author Author [facility] Organization [facility] Address Unknown Phone Unavailable Care Team Providers Care Cognos Tm1 Developer Name Role Phone Yana Chadwick MD 21 Shreyas Puentes MD 3 Eden Hennessy MD PCP Reason for Visit * Radiology Services (Routine) Referred By Contact Referred To Contact Status Reason Specialty Diagnoses / [place] [address] [address] [place] [address] Radiology [address] [facility] [address] [place] [address] No Auth Needed Radiology Diagnoses History of lipoma Sarcoma (HCC) Complex regional pain syndrome type 2 of left lower extremity P rocedures NM BONE SCAN WHOLEBODY NM BONE SCAN THREE PHASE Encounter Details Care Team Description Date [place] [address] [address] [place], [place] [address] 03/09/2018 [facility] [address] [place], [place] [phone] Social History Date Tobacco Use Types Packs/Day [...] Routine 03/09/2018 History of lipoma 2:52 PM TAX ACCOUNTING MANAGER Sarcoma (HCC) Complex regional pain syndrome type 2 of left lower extremity NM BONE SCAN WHOLEBODY Routine 03/09/2018 History of lipoma 2:52 PM TAX ACCOUNTING MANAGER Sarcoma (HCC) Complex regional pain syndrome type 2 of left lower extremity documented in this encounter Results * NM BONE SCAN WHOLEBODY (03/09/2018 2:52 PM TAX ACCOUNTING MANAGER) Specimen Impressions Performed At 1. No scintigraphic [...] Interface, Radiant Results - 03/09/2018 3:56 PM TAX ACCOUNTING MANAGER BONE SCINTIGRAPHY (THREE-PHASE) Clinical indication: 47-year-old male, [...] Medication Order MAR Action 03/09/2018 10:50 AM TAX ACCOUNTING MANAGER 26.5 millicuries RP DX Tc-99m medronate (MDP) injection Given 25 millicurie 25 millicurie, Intravenous, ONCE, 1 dose, Wed03/09/18 at 1145 documented in this encounter
--- OUTSIDE RECORDS SUMMARY | 2018-08-29 23:15 | XMS REPORT | Encounter Summary ---
Author Author [facility] Organization [facility] Address Unknown Phone Unavailable Care Team Providers Care Accident Examiner Name Role Phone Yana Chadwick MD 21 Shreyas Puentes MD 3 Eden Hennessy MD PCP Reason for Visit * Reason Comments Medication Refill Encounter Details Care Team Description Date Type Department Leander Tovar MD [address] [facility] Lvl [address] [place] [address] [phone] 03/02/2018 Refill [facility] [address] [place] [address] Social History Date Tobacco Use [...] Beto Reynaga RN - 03/10/2018 11:26 AM SCIENTIFIC AIDE Received lab results today - ok to refill MTX per protocol. NTIFIC AIDE * Telephone Encounter - Mariam Nye RN - 03/10/2018 9:41 AM SCIENTIFIC AIDE 03/07 Pt left message stating he received letter from [employer] upholding the decision to deny the PET [...] reports h e did last week at [facility] in [place]. Discussed we would call and r equest those and send refill if stable. Pt verbalizes understanding. Pt apprecia tive and had no further questions/concerns. NTIFIC AIDE * Telephone Encounter - Beto Reynaga RN - 03/02/2018 2:36 PM SCIENTIFIC AIDE Pt lvm requesting refill on MTX. Also [...] in on behal f of the pt. NTIFIC AIDE documented in this encounter Plan of Treatment Not on filedocumented as of this encounter Visit Diagnoses Not on filedocumented in this encounter
--- OUTSIDE RECORDS SUMMARY | 2018-08-29 23:15 | XMS REPORT | Encounter Summary ---
Author Author [facility] Organization [facility] Address Unknown Phone Unavailable Care Team Providers Care Car Sales Consultant Name Role Phone Yana Chadwick MD 21 Shreyas Puentes MD 3 Eden Hennessy MD PCP Reason for Visit * Reason Comments Medication Refill Encounter Details Care Team Description Date Type Department Leander Tovar MD 1999 [facility] Lvl [address] [place] [address] [phone] 03/06/2018 Refill [facility] [address] [place] [address] Social History Date Tobacco Use [...]
--- OUTSIDE RECORDS SUMMARY | 2018-08-29 23:15 | XMS REPORT | Encounter Summary ---
Author Author [facility] Organization [facility] Address Unknown Phone Unavailable Care Team Providers Care Home Energy Inspector Name Role Phone Yana Chadwick MD 21 Shreyas Puentes MD 3 Eden Hennessy MD PCP Reason for Visit * Reason Comments Office Visit Follow Up FUV after inj, no change Encounter Details Care Team Description Date [place] [address] [place] [address] [phone] Complex regional pain syndrome type 2 of left lower extremity (Primary Dx); History of lipoma; Pain of left thigh; PSVT (paroxysmal supraventricular tachycardia) (HCC); Cardiac device in situ; Sarcoma (HCC) 03/03/2018 Office Visit [facility] [address] [address] Social History Date Tobacco Use Types Packs/Day [...] Comments Vital Sign 167/117 03/03/2018 9:29 AM BOTTOM PAINTER Blood Pressure 88 03/03/2018 9:29 AM BOTTOM PAINTER Pulse 37.2 C (98.9 F) 03/03/2018 9:29 AM BOTTOM PAINTER Temperature 16 03/03/2018 9:29 AM BOTTOM PAINTER Respiratory Rate 100% 03/03/2018 9:29 AM BOTTOM PAINTER Oxygen Saturation - - Inhaled Oxygen Concentration 123.8 kg (273 lb) 03/03/2018 9:29 AM BOTTOM PAINTER Weight 170.2 cm (5' 7") 03/03/2018 9:29 AM BOTTOM PAINTER Height 42.76 03/03/2018 9:29 AM BOTTOM PAINTER Body Mass Index documented in this encounter [...] Amanda Plummer RN - 03/03/2018 8:[address] Lexi Amezcua General Instructions: How to reach me: Please send a [employer] message to the [facility] or leave a voicemail Amanda Plummer at [phone] How to get a medication refill: Please use the [employer] Refill request or cont act your pharmacy directly to request medication refills. How to receive your test results: If you have signed up for [employer], you will receive your test results and messages from me this way. Otherwise, you will get a phone call or letter. If you are expecting results and have not heard from my office within 2 weeks of your testing, please send a [employer] message or call my office. Scheduling: Our scheduling phone number if you are a [facility] patient is [phone]. If you are a cancer center patient, please call the cancer center you go to for scheduling. Appointment Reminders on your cell phone: Make sure we have your cell phone n umber, and Text [facility] to [phone]. Support for many chronic illnesses is available through [facility]: [email or web address] or [phone]. For questions on nights, weekends or holidays, call the slicer machine operator at [phone], and ask for the doctor provider relations representative for Physical Medicine and Rehab. OM PAINTER documented in this encounter Progress Notes * Lexi Amezcua MD - 03/03/2018 8:30 AM BOTTOM PAINTER ONCOLOGY REHAB HISTORY AND PHYSICAL Chief Complaint Patient presents with Office Visit Follow Up FUV after inj, no change Subjective HISTORY OF PRESENT ILLNESS: Mr. Velásquez is a pleasant 47 y.o. male with a history of LLE lipoma s/p resection x 4 in [place] with the last in 2015 who is seen on 03/03/2018 at the [facility] for follow up evaluation and treatment of LLE pain following LLE sympathetic nerve block with Dr. Soto (12/28/17). At his last appointment, he was prescribed Cymbalta 60 mg daily and change from gabapentin to Lyrica. He was not able to get the Cymbalta covered from [employer], but did start on Lyrica 75 [...] LLE lipoma s/p re section x4 in [place] with the last in 2015. History and [...] detention opioid mgmt at the spine center. Plan: [...] 2-3 weeks, t o review his images. OM PAINTER documented in this encounter Plan of Treatment [...]
--- OUTSIDE RECORDS SUMMARY | 2018-08-29 23:22 | XMS REPORT ---
Author Author ALENA ÁLVAREZ [facility] Address [address] [place] [address] Care Team Providers Care Mortgage Assistant Name Role Phone ALENA ÁLVAREZ Unavailable PROBLEMS Type Condition ICD9-CM Code VIA09-QS Code Onset Dates Condition Status SNOMED Code Problem Myocarditis, unspecified chronicity, 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 Active 49427611 Problem Sleep apnea, obstructive G47.33 Active 91042765 Problem Hyperlipidemia E78.5 Active 46106813 Problem HTN (hypertension) I10 Active 82356877 Problem Chronic pain G89.29 Active 18953387 Problem Chronic tension headaches G44.229 Active 617248355 Problem Blindness and low vision H54.10 Active 090941694 Problem 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 Active 157358382 Problem Body mass index (BMI) of 40.0-44.9 in adult Z68.41 Active 073106694 Problem CAD (coronary artery disease) I25.10 Active 63298631 Problem Mitral valve prolapse I34.1 Active 325450046 Problem Environmental allergies Z91.09 Active 252557345 Problem Post-traumatic stress disorder, chronic F43.12 Active 583112614 Problem Primary insomnia F51.01 Active 6676024 Problem Arrhythmia as indication for cardiac pacemaker replacement I49.9 Active 66418000 Problem Other male erectile dysfunction N52.8 Active 962398797 Problem Morbid (severe) obesity due to excess calories E66.01 Active 152024697 Problem Migraine without aura and without status migrainosus, not intractable G43.009 Active 470312570 Problem Chronic pain syndrome G89.4 Active 704753240 Problem Problems related to release from nursing home Z65.2 Active 496427964588828 Problem Other chronic pain G89.29 Active 79779717 Problem Major depressive disorder, recurrent, moderate F33.1 Active 74720382 Problem BMI 45.0-49.9, adult Z68.42 Active 771671409 Problem Anxiety F41.9 Active 23074567 Problem Open-angle glaucoma of both eyes H40.10X0 Active 59097311 Problem Sarcoidosis D86.9 Active 01011610 Problem Insomnia disorder with non-sleep disorder mental comorbidity G47.00 Active 47547307 Problem Supraventricular tachycardia I47.1 Active 8690896 Problem Resistant hypertension I10 Active 05117534 ALLERGIES No Information ENCOUNTERS Encounter Location Date Diagnosis [facility] [id number] [address] Aug, [facility] [id number] [place] [address] Aug, [facility] [id number] [place] [address] Aug, Left leg pain M79.605 [facility] [id number] [place] [address] Aug, [facility] [id number] [place] [address] Aug, [facility] [id number] [place] [address] Aug, [facility] [id number] [place] [address] Jul, Left leg pain M79.605 [facility] [id number] [address] Jul, [facility] [id number] [place] [address] Jul, BMI 45.0-49.9, adult Z68.42 [facility] [id number] [address] June, Post-traumatic stress disorder, unspecified F43.10 ; Major depressive disorder, recurrent, moderate F33.1 and Problems related to release from nursing home Z65.2 [facility] [address] [address] June, Left leg pain M79.605 [facility] [address] [id number] [place] [address] June, [facility] [address] [id number] [place] [address], [place] [address] June, [facility] [address] [id number] [place] [address] June, [facility] [address] [id number] [place] [address], [place] [address] June, [facility] [address] [id number] [place] [address] June, HTN (hypertension) I10 [facility] [address] [id number] [place] [address], [place] [address] June, [facility] [address] [id number] [place] [address] June, [facility] [address] [id number] [place] [address] June, [facility] [address] [id number] [place] [address] June, [facility] [id number] [place] [address] May, [facility] [address] [id number] [place] [address] May, [facility] [place] [facility] [address] [id number] [place] [address] May, [facility] [place] [facility] [address] [id number] [place] [address] May, [facility] [place] [facility] [address] [id number] [place] [address] May, [facility] [place] [facility] [address] [facility] [id number] [place] [address] May, [facility] [place] [facility] [id number] [address] May, [facility] [id number] [place] [address] May, Post-traumatic stress disorder, unspecified F43.10 ; Major depressive disorder, recurrent, moderate F33.1 and Problems related to release from nursing home Z65.2 [facility] [id number] [place] [address] May, [facility] [id number] [place] [address] May, [facility] [id number] [place] [address] May, [facility] [id number] [place] [address] May, [facility] [id number] [place] [address] May, [facility] [id number] [place] [address] May, Left leg pain M79.605 [facility] [id number] [place] [address] May, [facility] [address] [place] [address] May, Pain in right shoulder M25.511 [facility] [id number] [place] [address] May, [facility] [id number] [place] [address] 16 May, 2018 Encounter for immunization Z23 [facility] [id number] [place] [address] 15 May, 2018 [facility] [address] [place] [address] May, [facility] [id number] [place] [address] May, HTN (hypertension) I10 [facility] [id number] [place] [address] May, Other chronic pain G89.29 ; Pain in left knee M25.562 and 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 [facility] [id number] [place] [address] May, [facility] [id number] [place] [address] May, Flank pain R10.9 [facility] [id number] [place] [address] May, [facility] [id number] [place] [address] May, HTN (hypertension) I10 [facility] [id number] [place] [address] May, Resistant hypertension I10 [facility] [id number] [place] [address] May, [facility] [id number] [place] [address] May, Post-traumatic stress disorder, unspecified F43.10 ; Major depressive disorder, recurrent, moderate F33.1 and Problems related to release from nursing home Z65.2 [facility] [id number] [place] [address] May, HTN (hypertension) I10 [facility] [id number] [place] [address] May, [facility] [id number] [place] [address] Apr, [facility] [id number] [place] [address] Apr, [facility] [address] [address] Apr, HTN (hypertension) I10 [facility] [id number] [place] [address], [place] [address] Apr, [facility] [address] [address] Apr, [facility] [id number] [place] [address] Apr, [facility] [id number] [place] [address] Apr, [facility] [id number] [place] [address], [place] [address] Apr, [facility] [id number] [place] [address] Apr, HTN (hypertension) I10 [facility] [id number] [place] [address] Apr, [facility] [id number] [place] [address] Apr, [facility] [id number] [place] [address] Apr, [facility] [address] [address] Apr, [facility] [address] [address] Apr, Left leg pain M79.605 [facility] [address] [address] 18 Apr, 2018 [facility] [address] [address] 15 Apr, 2018 [facility] [address] [address] 14 Apr, 2018 Acute bronchitis J20.9 [facility] [address] [address] 14 Apr, 2018 [facility] [id number] [place] [address] 14 Apr, 2018 [facility] [id number] [place] [address] 13 Apr, 2018 [facility] [id number] [place] [address] 12 Apr, 2018 [facility] [id number] [place] [address] Apr, Morbid obesity E66.01 [facility] [id number] [place] [address] 07 Apr, 2018 [facility] [id number] [place] [address] Apr, Contact dermatitis, unspecified contact dermatitis type, unspecified trigger L25.9 and Morbid obesity E66.01 [facility] [id number] [place] [address] Apr, [facility] [id number] [place] [address] Apr, [facility] [id number] [place] [address] Mar, [facility] [id number] [place] [address] Mar, Post-traumatic stress disorder, unspecified F43.10 ; Major depressive disorder, recurrent, moderate F33.1 and Problems related to release from nursing home Z65.2 [facility] [id number] [place] [address] 19 Mar, 2018 Left leg pain M79.605 [facility] [address] [address] 14 Mar, 2018 Arrhythmia as indication for cardiac pacemaker replacement I49.9 ; HTN (hypertension) I10 ; Primary insomnia F51.01 ; Chronic pain syndrome G89.4 ; 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 and Myocarditis, unspecified chronicity, 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 [facility] [id number] [place] [address] 06 Mar, 2018 Post-traumatic stress disorder, unspecified F43.10 ; Major depressive disorder, recurrent, moderate F33.1 and Problems related to release from nursing home Z65.2 [facility] [id number] [place] [address] Feb, Open-angle glaucoma of both eyes H40.10X0 [facility] [address] [address] Feb, Post-traumatic stress disorder, chronic F43.12 ; Anxiety F41.9 ; Problems related to release from nursing home Z65.2 and BMI 40.0-44.9, adult Z68.41 [facility] [id number] [place] [address] Feb, Left leg pain M79.605 [address] [address] [address] Feb, [facility] [id number] [place] [address] Jan, Left leg pain M79.605 [facility] [id number] [place] [address] Jan, [facility] [id number] [place] [address] Jan, Post-traumatic stress disorder, unspecified F43.10 ; Major depressive disorder, recurrent, moderate F33.1 and Problems related to release from nursing home Z65.2 [facility] [id number] [place] [address] Jan, Insomnia disorder with non-sleep disorder mental comorbidity G47.00 ; Post-traumatic stress disorder, chronic F43.12 ; Anxiety F41.9 and BMI 40.0- 44.9, adult Z68.41 [facility] [address] [address] 14 Jan, 2018 Encounter for long-term (current) use of other medications Z79.899 [facility] [address] [address] Jan, [facility] [address] [address] Dec, Left leg pain M79.605 [address] [facility] [address] [address] Dec, Encounter for long-term (current) use of other medications Z79.899 [address] [address] [address] 20 Dec, 2017 [facility] [address] [address] 19 Dec, 2017 Tooth pain K08.89 ; Active dental caries K02.9 and BMI 40.0-44.9, adult Z68.41 [facility] [address] [address] 15 Dec, 2017 Acute bronchitis J20.9 and BMI 40.0-44.9, adult Z68.41 [facility] [id number] [place] [address] 15 Dec, 2017 [facility] [address] [address] Dec, [facility] [address] [address] Dec, [facility] [address] [address] Dec, [facility] [address] [address] Nov, [facility] [address] [address] Nov, Left leg pain M79.605 [facility] [address] [id number] [id number] Nov, [facility] [address] [place] [address] Nov, Encounter for long-term (current) use of other medications Z79.899 [facility] [address] [place] [address] Nov, [facility] [id number] [place] [address] Nov, Left leg pain M79.605 [facility] [address] [place] [id number] Oct, Dental examination Z01.20 [facility] [id number] [place] [address] Oct, Insomnia disorder with non-sleep disorder mental comorbidity G47.00 [facility] [address] [place] [address] Oct, Post-traumatic stress disorder, chronic F43.12 ; Insomnia disorder with non-sleep disorder mental comorbidity G47.00 and BMI 40.0-44.9, adult Z68.41 [facility] [id number] [place] [address] Oct, [facility] [address] [place] [address] 18 Oct, 2017 Insect bite (nonvenomous), left lower leg, initial encounter S80.862A ; Bitten or stung by nonvenomous insect and other nonvenomous arthropods, initial encounter W57.XXXA and BMI 40.0-44.9, adult Z68.41 [facility] [id number] [place] [address] 06 Oct, 2017 Left leg pain M79.605 [facility] [id number] [place] [address] 04 Oct, 2017 Post-traumatic stress disorder, unspecified F43.10 ; Major depressive disorder, recurrent, moderate F33.1 and Problems related to release from nursing home Z65.2 [facility] [address] [address] Sep, Arrhythmia as indication for cardiac pacemaker replacement I49.9 [facility] [address] [address] Sep, [facility] [address] [address] Sep, HTN (hypertension) I10 [facility] [address] [address] Sep, [facility] [address] [address] Sep, 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 ; Chronic pain G89.29 ; Supraventricular tachycardia I47.1 and Body mass index (BMI) of 40.0-44.9 in adult Z68.41 [facility] [id number] [place] [address] Sep, [facility] [id number] [place] [address] Sep, Sarcoidosis D86.9 [facility] [id number] [place] [address] Sep, Sarcoidosis D86.9 [facility] [address] [address] Sep, [facility] [address] [address] Sep, [facility] [address] [address] Sep, [facility] [address] [address] Sep, [facility] [address] [address] Sep, Left leg pain M79.605 [facility] [address] [address] Sep, HTN (hypertension) I10 [facility] [address] [address] Sep, [facility] [address] [place] [address] Sep, Post-traumatic stress disorder, unspecified F43.10 ; Major depressive disorder, recurrent, moderate F33.1 and Problems related to release from nursing home Z65.2 [facility] [address] [address] Sep, [facility] [address] [address] Aug, [facility] [address] [place] [address] Aug, Sarcoidosis D86.9 [facility] [address] [address] Aug, Sarcoidosis D86.9 [facility] [address] [address] Aug, HTN (hypertension) I10 [facility] [id number] [address] Aug, Post-traumatic stress disorder, unspecified F43.10 ; Major depressive disorder, recurrent, moderate F33.1 and Problems related to release from nursing home Z65.2 [facility] [address] [address] Aug, [facility] [id number] [place] [address] Aug, Left leg pain M79.605 [facility] [address] [address] Jul, Post-traumatic stress disorder, chronic F43.12 ; Anxiety F41.9 ; Problems related to release from nursing home Z65.2 and BMI 40.0-44.9, adult Z68.41 [facility] [address] [address] 20 Jul, 2017 HTN (hypertension) I10 ; Body mass index (BMI) of 40.0-44.9 in adult Z68.41 ; Acute swimmer''s ear of both sides H60.333 and Chronic pain G89.29 [facility] [address] [address] 19 Jul, 2017 Glaucoma H40.9 [facility] [address] [address] 14 Jul, 2017 [place] [address] [address] 13 Jul, 2017 Sarcoidosis D86.9 [place] [address] [address] Jul, Left leg pain M79.605 [place] [address] [place] [id number] [place] [address] Jul, Sarcoidosis D86.9 [place] [address] [address] Jul, Post-traumatic stress disorder, unspecified F43.10 ; Major depressive disorder, recurrent, moderate F33.1 and Problems related to release from nursing home Z65.2 [place] [address] [place] [id number] [place] [address] June, [facility] [address] [place] [id number] [place] [address] June, Sore throat J02.9 and BMI 40.0-44.9, adult Z68.41 [facility] [id number] [address] June, [facility] [address] [place] [id number] [place] [address] June, [facility] [address] [place] [id number] [place] [address] June, [facility] [address] [place] [id number] [place] [address] June, Left leg pain M79.605 [facility] [address] [place] [id number] [place] [address] June, Sarcoidosis D86.9 [facility] [address] [place] [address] [id number] [address] June, [facility] [address] [place] [id number] [place] [address] June, [facility] [address] [place] [id number] [address] June, Left leg pain M79.605 [facility] [address] [place] [id number] [address] May, [facility] [id number] [address] May, [facility] [id number] [address] May, [facility] [id number] [address] May, Left leg pain M79.605 [facility] [id number] [address] May, Post-traumatic stress disorder, unspecified F43.10 ; Major depressive disorder, recurrent, moderate F33.1 and Problems related to release from nursing home Z65.2 [place] [address] [place] [id number] [place] [address] 04 May, 2017 Chronic pain G89.29 ; Anxiety F41.9 ; Chest pain, unspecified type R07.9 and BMI 40.0-44.9, adult Z68.41 [place] [address] [place] [id number] [place] [address] 30 Apr, 2017 [place] [address] [address] 29 Apr, 2017 Left leg pain M79.605 [place] [address] [address] 27 Apr, 2017 Post-traumatic stress disorder, unspecified F43.10 ; Problems related to release from nursing home Z65.2 ; Anxiety F41.9 and BMI 40.0-44.9, adult Z68.41 [place] [address] [address] 22 Apr, 2017 [place] [address] [place] [id number] [place] [address] Apr, Left leg pain M79.605 [place] [address] [address] 13 Apr, 2017 Post-traumatic stress disorder, unspecified F43.10 ; Major depressive disorder, recurrent, moderate F33.1 and Problems related to release from nursing home Z65.2 [facility] [id number] [place] [address] 12 Apr, 2017 [facility] [id number] [place] [address] Apr, Chronic pain G89.29 ; 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 [id number] [place] [address] Apr, Sore throat J02.9 and BMI 40.0-44.9, adult Z68.41 [facility] [id number] [place] [address] 02 Apr, 2017 Left leg pain M79.605 [facility] [address] [place] [id number] 28 Mar, 2017 Dental examination Z01.20 [facility] [address] [address] 23 Mar, 2017 [facility] [address] [address] Mar, Cough R05 ; Viral gastroenteritis A08.4 and BMI 40.0-44.9, adult Z68.41 [facility] [address] [address] Mar, Left leg pain M79.605 [facility] [address] [address] 06 Mar, 2017 Post-traumatic stress disorder, unspecified F43.10 ; Major depressive disorder, recurrent, moderate F33.1 and Problems related to release from nursing home Z65.2 [facility] [id number] [place] [address] Feb, Left leg pain M79.605 [facility] [id number] [place] [address] Feb, [facility] [id number] [place] [address] Feb, BMI 40.0-44.9, adult Z68.41 ; Chronic pain syndrome G89.4 ; Migraine without aura and without status migrainosus, not intractable G43.009 ; Mitral valve prolapse I34.1 and 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 [facility] [id number] [place] [address] Feb, Post-traumatic stress disorder, chronic F43.12 ; Anxiety F41.9 ; Problems related to release from nursing home Z65.2 and BMI 40.0-44.9, adult Z68.41 [facility] [id number] [place] [address] Feb, Post-traumatic stress disorder, unspecified F43.10 ; Major depressive disorder, recurrent, moderate F33.1 and Problems related to release from nursing home Z65.2 [facility] [id number] [place] [address] Feb, Left leg pain M79.605 [facility] [id number] [place] [address] Jan, Post-traumatic stress disorder, unspecified F43.10 ; Major depressive disorder, recurrent, moderate F33.1 and Problems related to release from nursing home Z65.2 [facility] [id number] [place] [address] 27 Jan, 2017 [facility] [id number] [place] [address] Jan, [facility] [id number] [place] [address] Jan, Anxiety F41.9 [facility] [id number] [place] [address] 13 Jan, 2017 Left leg pain M79.605 [facility] [id number] [place] [address] Dec, Left leg pain M79.605 [facility] [id number] [place] [address] Dec, [facility] [id number] [place] [address] Dec, Post-traumatic stress disorder, unspecified F43.10 ; Major depressive disorder, recurrent, moderate F33.1 and Problems related to release from nursing home Z65.2 [facility] [address] [place] [address] Nov, Chronic pain G89.29 and Anxiety F41.9 [facility] [address] [address] 24 Nov, 2016 Chronic pain G89.29 and Anxiety F41.9 [facility] [address] [address] 16 Nov, 2016 Post-traumatic stress disorder, unspecified F43.10 ; Major depressive disorder, recurrent, moderate F33.1 and Problems related to release from nursing home Z65.[address] [address] 09 Nov, 2016 Other abnormal findings in specimens from other organs, systems and tissues R89.8 ; Other male erectile dysfunction N52.8 ; Body mass index (BMI) of 40.0-44.9 in adult Z68.41 and Morbid (severe) obesity due to excess calories E66.01 [facility] [address] [address] 02 Nov, 2016 Post-traumatic stress disorder, unspecified F43.10 ; Major depressive disorder, recurrent, moderate F33.1 and Problems related to release from nursing home Z65.2 [facility] [address] [id number] Oct, Dental examination Z01.[address] [address] Oct, [address] [address] Oct, Encounter for immunization Z23 [address] [address] Oct, Chronic pain G89.29 ; Anxiety F41.9 ; Arrhythmia as indication for cardiac pacemaker replacement I49.9 and Glaucoma H40.[address] [address] Oct, Anxiety F41.9 ; Post-traumatic stress disorder, chronic F43.12 and Problems related to release from nursing home Z65.2 [facility] [id number] [place], [place] [address] 07 Oct, 2016 Post-traumatic stress disorder, unspecified F43.10 ; Major depressive disorder, recurrent, moderate F33.1 and Problems related to release from nursing home Z65.2 [facility] [address] [address] 30 Sep, 2016 Chronic pain G89.29 and Anxiety F41.9 [facility] [id number] [place] [address] Sep, Post-traumatic stress disorder, unspecified F43.10 ; Major depressive disorder, recurrent, moderate F33.1 and Problems related to release from nursing home Z65.2 [facility] [id number] [place] [address] 11 Sep, 2016 Post-traumatic stress disorder, unspecified F43.10 ; Major depressive disorder, recurrent, moderate F33.1 and Problems related to release from nursing home Z65.2 [facility] [id number] [place] [address] Sep, Chronic pain G89.29 [facility] [id number] [place] [address] Aug, Dental caries, unspecified K02.9 [facility] [id number] [place] [address] Aug, Sleep apnea, obstructive G47.33 ; Obesity E66.9 ; Chronic pain G89.29 ; HTN (hypertension) I10 ; Major depressive disorder, recurrent, moderate F33.1 ; Anxiety F41.9 ; Chronic tension headaches G44.229 ; Mitral valve prolapse I34.1 ; Arrhythmia as indication for cardiac pacemaker replacement I49.9 ; Dental caries, unspecified K02.9 ; Primary insomnia F51.01 and Hyperlipidemia E78.5 [place] [id number] [place] [address] Aug, Post-traumatic stress disorder, unspecified F43.10 ; Major depressive disorder, recurrent, moderate F33.1 and Problems related to release from nursing home Z65.2 [facility] [address] [place] [address] Aug, Dental examination Z01.20 [facility] [address] [place] [id number] Aug, Dental examination Z01.20 [facility] [id number] [place] [address] Aug, Post-traumatic stress disorder, unspecified F43.10 ; Major depressive disorder, recurrent, moderate F33.1 and Problems related to release from nursing home Z65.2 [facility] [id number] [place] [address] Aug, Chronic pain G89.29 and Primary insomnia F51.01 [facility] [id number] [place] [address] Jul, [facility] [id number] [place] [address] Jul, [facility] [id number] [place] [address] Jul, Nausea R11.0 [facility] [id number] [place] [address] Jul, Arrhythmia as indication for cardiac pacemaker replacement I49.9 [facility] [id number] [place] [address] Jul, Post-traumatic stress disorder, unspecified F43.10 ; Major depressive disorder, recurrent, moderate F33.1 and Problems related to release from nursing home Z65.2 [facility] [id number] [place] [address] Jul, Anxiety F41.9 [facility] [id number] [place] [address] 08 Jul, 2016 Chronic pain G89.29 [facility] [id number] [place] [address] Jul, Sleep apnea, obstructive G47.33 ; Hyperlipidemia E78.5 ; Chronic pain G89.29 ; Blindness and low vision H54.10 ; Major depressive disorder, recurrent, moderate F33.1 ; Anxiety F41.9 ; Mitral valve prolapse I34.1 ; Arrhythmia as indication for cardiac pacemaker replacement I49.9 ; Primary insomnia F51.01 ; Bilateral headaches R51 and Environmental allergies Z91.09 [facility] [id number] [place] [address] Jul, Post-traumatic stress disorder, unspecified F43.10 ; Major depressive disorder, recurrent, moderate F33.1 and Problems related to release from nursing home Z65.2 [facility] [address] [address] June, Post-traumatic stress disorder, chronic F43.12 ; Anxiety F41.9 ; Problems related to release from nursing home Z65.2 ; Sleep apnea, obstructive G47.33 and Primary insomnia F51.01 [facility] [id number] [place] [address] June, [facility] [id number] [place] [address] June, [facility] [id number] [place] [address] June, [facility] [id number] [place] [address] June, Chronic pain G89.29 [facility] [id number] [place] [address] June, Chronic pain G89.29 [facility] [id number] [place] [address] June, Lipoma of left lower extremity D17.24 ; Open wound T14.8 and Swelling of left lower extremity M79.89 [facility] [address] [place] [address] June, Post-traumatic stress disorder, unspecified F43.10 ; Major depressive disorder, recurrent, moderate F33.1 and Problems related to release from nursing home Z65.2 [facility] [id number] [place] [address] May, Lipoma of left lower extremity D17.24 ; Major depressive disorder, recurrent, moderate F33.1 ; Sleep apnea, obstructive G47.33 ; Hyperlipidemia E78.5 ; Obesity E66.9 ; HTN (hypertension) I10 ; Glaucoma H40.9 ; CAD (coronary artery disease) I25.10 ; Chronic tension headaches G44.229 ; Chronic pain G89.29 ; Anxiety F41.9 ; Nausea R11.0 and Primary insomnia F51.01 [facility] [id number] [place] [address] May, [facility] [id number] [place] [address] May, Chronic pain G89.29 [facility] [id number] [place] [address] May, [facility] [id number] [place] [address] Apr, Post-traumatic stress disorder, unspecified F43.10 ; Major depressive disorder, recurrent, moderate F33.1 and Problems related to release from nursing home Z65.2 [facility] [address] [place] [address] Apr, Primary insomnia F51.01 ; Post-traumatic stress disorder, chronic F43.12 and Problems related to release from nursing home Z65.2 [facility] [address] [place] [address] Apr, Post-traumatic stress disorder, unspecified F43.10 ; Major depressive disorder, recurrent, moderate F33.1 and Problems related to release from nursing home Z65.2 [place] [id number] [place] [address] 16 Apr, 2016 [facility] [id number] [place] [address] 16 Apr, 2016 Sleep apnea, obstructive G47.33 ; Chronic pain G89.29 ; HTN (hypertension) I10 ; Mitral valve prolapse I34.1 ; Shoulder pain, left M25.512 ; Arrhythmia as indication for cardiac pacemaker replacement I49.9 ; Glaucoma H40.9 ; Bilateral headaches R51 ; Environmental allergies Z91.09 ; Primary insomnia F51.01 and Nausea R11.0 [facility] [id number] [place] [address] 15 Apr, 2016 [facility] [id number] [place] [address] Apr, [facility] [id number] [place] [address] Apr, Post-traumatic stress disorder, unspecified F43.10 ; Major depressive disorder, recurrent, moderate F33.1 and Problems related to release from nursing home Z65.2 [facility] [id number] [place] [address] 07 Apr, 2016 HTN (hypertension) I10 [facility] [id number] [place] [address] Apr, HTN (hypertension) I10 [facility] [id number] [place] [address] 14 Mar, 2016 Chronic pain G89.29 ; Primary insomnia F51.01 and Problems related to release from nursing home Z65.2 [facility] [id number] [place] [address] 07 Mar, 2016 Post-traumatic stress disorder, unspecified F43.10 ; Major depressive disorder, recurrent, moderate F33.1 and Problems related to release from nursing home Z65.2 [facility] [id number] [place] [address] Feb, Post-traumatic stress disorder, unspecified F43.10 ; Major depressive disorder, recurrent, moderate F33.1 and Problems related to release from nursing home Z65.2 [id number] [place] [address] Feb, Chronic tension headaches G44.[address] [address] Feb, Sleep apnea, obstructive G47.33 ; Obesity E66.9 ; Hyperlipidemia E78.5 ; Glaucoma H40.9 ; Chronic pain G89.29 ; HTN (hypertension) I10 ; Blindness and low vision H54.10 ; Open-angle glaucoma of both eyes H40.10X0 ; Chronic tension headaches G44.229 ; Cough R05 ; CAD (coronary artery disease) I25.10 ; Problems related to release from nursing home Z65.2 ; Arrhythmia as indication for cardiac pacemaker replacement I49.9 and Primary insomnia F51.01 [place] [id number] [place] [address] Feb, Post-traumatic stress disorder, unspecified F43.10 and Chronic pain G89.29 [place] [id number] [place] [address] Feb, [facility] [address] [place] [id number] Feb, Dental caries K02.[address] [address] Feb, [address] [address] Feb, Post-traumatic stress disorder, unspecified F43.10 ; Major depressive disorder, recurrent, moderate F33.1 and Problems related to release from nursing home Z65.2 [id number] [place] [address] Jan, Sleep apnea, obstructive G47.33 and Chronic pain G89.29 [facility] [address] [address] Jan, [facility] [id number] [place] [address] Jan, Dental examination Z01.20 [facility] [id number] [place] [address] Jan, [facility] [id number] [place] [address] Jan, [facility] [id number] [place] [address] Dec, Post-traumatic stress disorder, unspecified F43.10 ; Major depressive disorder, recurrent, moderate F33.1 and Problems related to release from nursing home Z65.2 [id number] [place] [address] Dec, Encounter for immunization Z23 ; Problems related to release from nursing home Z65.2 ; Sleep apnea, obstructive G47.33 and Post-traumatic stress disorder, chronic F43.12 [place] [id number] [place] [address] 18 Dec, 2015 Sleep apnea, obstructive G47.33 ; Hyperlipidemia E78.5 ; Chronic pain G89.29 ; Glaucoma H40.9 ; HTN (hypertension) I10 ; Post-traumatic stress disorder, unspecified F43.10 ; Anxiety F41.9 ; Chronic tension headaches G44.229 ; Mitral valve prolapse I34.1 and CAD (coronary artery disease) I25.10 [facility] [address] [place] [address] 15 Dec, 2015 Post-traumatic stress disorder, unspecified F43.10 ; Major depressive disorder, recurrent, moderate F33.1 and Problems related to release from nursing home Z65.2 [facility] [address] [place] [address] Nov, Chronic pain G89.29 [facility] [address] [address] Nov, Post-traumatic stress disorder, unspecified F43.10 ; Major depressive disorder, recurrent, moderate F33.1 and Problems related to release from nursing home Z65.2 [facility] [address] [place] [address] Oct, [facility] [id number] [place] [address] Oct, [facility] [id number] [place] [address] Oct, Post-traumatic stress disorder, unspecified F43.10 ; Major depressive disorder, recurrent, moderate F33.1 and Problems related to release from nursing home Z65.2 [facility] [facility] [id number] [place] [address] 08 Oct, 2015 [place] [id number] [place] [address] 07 Oct, 2015 Environmental allergies Z91.09 ; Cough R05 and Open-angle glaucoma of both eyes H40.10X0 [facility] [facility] [id number] [place] [address] Sep, [facility] [facility] [id number] [place] [address] Sep, Post-traumatic stress disorder, unspecified F43.10 ; Major depressive disorder, recurrent, moderate F33.1 and Problems related to release from nursing home Z65.2 [place] [address] [place] [address] Sep, Chronic pain G89.29 [place] [address] [place] [address] Sep, Pain in left shoulder M25.512 ; Pain in right shoulder M25.511 and Other chronic pain G89.29 [facility] [id number] [place] [address] Sep, [facility] [address] [place] [address] Sep, [facility] [id number] [place] [address] Sep, [facility] [id number] [place] [address] [id number] Aug, Dental examination Z01.20 [facility] [id number] [place] [address] Aug, Post-traumatic stress disorder, unspecified F43.10 ; Open-angle glaucoma of both eyes H40.10X0 and Problems related to release from nursing home Z65.2 [place] [address] [address] Aug, [place] [id number] [place] [address] Aug, Sleep apnea, obstructive G47.33 ; Obesity E66.9 ; Hyperlipidemia E78.5 ; Bilateral headaches R51 ; HTN (hypertension) I10 ; Post-traumatic stress disorder, unspecified F43.10 ; Anxiety F41.9 ; Neuropathy G62.9 ; Glaucoma H40.9 and Chronic pain G89.29 [facility] [address] [place] [address] [id number] Aug, Encounter for dental examination Z01.20 [facility] [id number] [place] [address] Aug, Post-traumatic stress disorder, unspecified F43.10 ; Major depressive disorder, recurrent, moderate F33.1 and Problems related to release from nursing home Z65.2 [facility] [id number] [place] [address] Aug, [facility] [id number] [place] [address] Jul, [facility] [id number] [place] [address] Jul, Post-traumatic stress disorder, unspecified F43.10 and Major depressive disorder, recurrent, moderate F33.1 [facility] [address] [address] Jul, [facility] [id number] [address] Jul, [facility] [id number] [place] [address] Jul, Chronic pain G89.29 [facility] [address] [place] [address] June, Post-traumatic stress disorder, unspecified F43.10 and Major depressive disorder, recurrent, moderate F33.1 [facility] [address] [address] June, [facility] [id number] [place] [address] June, Chronic pain G89.29 [facility] [address] [place] [address] June, Post-traumatic stress disorder, unspecified F43.10 and Major depressive disorder, recurrent, moderate F33.1 [facility] [address] [address] May, Post-traumatic stress disorder, unspecified F43.10 and Major depressive disorder, recurrent, moderate F33.1 [facility] [address] [address] May, [facility] [id number] [place] [address] May, [facility] [id number] [address] May, [facility] [address] [address] Apr, [facility] [address] [place] [address] Apr, Post-traumatic stress disorder, unspecified F43.10 and Sleep apnea, obstructive G47.33 [facility] [id number] [place] [address] Apr, [facility] [id number] [place] [address] Apr, Shoulder pain, left M25.512 [facility] [id number] [place] [id number] 18 Apr, 2015 Post-traumatic stress disorder, unspecified F43.10 and Major depressive disorder, recurrent, moderate F33.1 [facility] [id number] [place] [id number] 17 Apr, 2015 [place] [id number] [place] [id number] Apr, [facility] [id number] [place] [id number] 08 Apr, 2015 [facility] [id number] [place] [id number] 07 Apr, 2015 Left shoulder pain M25.512 [facility] [id number] [place] [id number] Mar, [facility] [id number] [place] [id number] Mar, [facility] [id number] [place] [id number] 18 Mar, 2015 [facility] [id number] [place] [id number] 12 Mar, 2015 Sleep apnea, obstructive G47.33 ; Obesity E66.9 ; Chronic pain G89.29 ; Hyperlipidemia E78.5 ; HTN (hypertension) I10 ; Blindness and low vision H54.10 ; Major depressive disorder, recurrent, moderate F33.1 and Anxiety F41.9 [place] [id number] [place] [id number] Mar, [place] [address] [place] [id number] [place] [address] Mar, Post-traumatic stress disorder, unspecified F43.10 and Major depressive disorder, recurrent, moderate F33.1 [place] [id number] [place] [id number] 08 Mar, 2015 [place] [id number] [place] [id number] 04 Mar, 2015 HTN (hypertension) I10 ; Blindness and low vision H54.10 ; Obesity E66.9 ; Hyperlipidemia E78.5 ; Glaucoma H40.9 ; Chronic pain G89.29 and CAD (coronary artery disease) I25.10 [place] [id number] [place] [address] Feb, [place] [id number] [place] [address] Feb, Post-traumatic stress disorder, unspecified F43.10 ; Obesity E66.9 ; Sleep apnea, obstructive G47.33 and Open-angle glaucoma of both eyes H40.10X0 [place] [id number] [place] [address] Feb, Post-traumatic stress disorder, unspecified F43.10 and Major depressive disorder, recurrent, moderate F33.1 [place] [id number] [place] [address] Feb, [place] [id number] [place] [address] Feb, [place] [id number] [place] [address] Feb, HTN (hypertension) I10 ; Post-traumatic stress disorder, unspecified F43.10 ; Blindness and low vision H54.10 ; Obesity E66.9 ; Hyperlipidemia E78.5 ; Chronic pain G89.29 ; Glaucoma H40.9 ; Mitral valve prolapse I34.1 and Bilateral headaches R51 [place] [address] [address] [id number] [place] [address] Feb, [place] [address] [address] Feb, Post-traumatic stress disorder, unspecified F43.10 and Major depressive disorder, recurrent, moderate F33.1 [place] [address] [address] Feb, [place] [address] [address] Feb, [place] [address] [address] Jan, [place] [address] [address] Jan, [place] [address] [address] [id number] [place] [address] Jan, Obesity E66.9 ; HTN (hypertension) I10 ; Blindness and low vision H54.10 ; Major depressive disorder, recurrent, moderate F33.1 ; Glaucoma H40.9 ; Hyperlipidemia E78.5 ; Sleep apnea, obstructive G47.33 ; Chronic pain G89.29 ; Anxiety F41.9 ; Chronic tension headaches G44.229 and Cough R05 [place] [address] [address] [id number] [place] [address] Jan, [address] [address] Jan, [place] [id number] [place] [address] Jan, Post-traumatic stress disorder, unspecified F43.10 ; Obesity E66.9 ; Sleep apnea, obstructive G47.33 and Open-angle glaucoma of both eyes H40.10X0 [place] [id number] [place] [address] Jan, [place] [address] Jan, Post-traumatic stress disorder, unspecified F43.10 and Major depressive disorder, recurrent, moderate F33.[address] [address] Dec, [place] [address] [address] Dec, Sleep apnea, obstructive G47.33 ; Obesity E66.9 ; Hyperlipidemia E78.5 ; Glaucoma H40.9 ; Chronic pain G89.29 ; HTN (hypertension) I10 ; Blindness and low vision H54.10 ; Anxiety F41.9 and CAD (coronary artery disease) I25.[address] [address] Nov, [place] [address] [address] Nov, [address] [address] Nov, [address] [address] Nov, [place] [address] [address] Nov, [address] [address] Nov, Encounter for immunization Z23 ; Sleep apnea, obstructive G47.33 ; Obesity E66.9 ; Hyperlipidemia E78.5 ; Glaucoma H40.9 ; Chronic pain G89.29 ; Anxiety F41.9 ; Chronic tension headaches G44.229 and HTN (hypertension) I10 [address] [address] Nov, [facility] [id number] [address] 14 Nov, 2014 [facility] [id number] [place] [address] 06 Nov, 2014 Dizziness R42 [facility] [id number] [place] [address] Nov, [facility] [id number] [place] [phone] 29 Oct, 2014 [facility] [id number] [place] [address] 28 Oct, 2014 [facility] [id number] [place] [address] Oct, [facility] [id number] [place] [address] Oct, [facility] [id number] [place] [address] Oct, Dizziness 780.4 ; Essential hypertension 401.9 ; Obesity 278.00 ; Hyperlipidemia 272.4 ; Chronic pain 338.29 ; Glaucoma 365.9 and Anxiety 300.00 [facility] [id number] [place] [address] Oct, Essential hypertension 401.9 ; Hyperlipidemia 272.4 ; Glaucoma 365.9 ; Obesity 278.00 ; Chronic pain 338.29 and Allergy to insects V15.06 [facility] [address] [address] Sep, [facility] [id number] [place] [address] Sep, [facility] [id number] [place] [address] Sep, [facility] [id number] [place] [address] Sep, [facility] [address] [place] [address] [id number] [address] Aug, Essential hypertension 401.9 ; Obesity 278.00 ; Hyperlipidemia 272.4 ; Glaucoma 365.9 ; Lipoma 214.9 ; Mitral valve prolapse 424.0 ; Angina at rest 413.9 ; Lymphedema 457.1 and Chronic pain 338.29 IMMUNIZATIONS No Known Immunizations SOCIAL HISTORY Never Assessed REASON FOR VISIT Blood pressure check--tcuppettRN PLAN OF CARE VITAL SIGNS Height 67 in 2018-04-25 Blood pressure systolic 162 mmHg 2018-04-25 Blood pressure diastolic 100 mmHg 2018-04-25 MEDICATIONS Unknown Medications RESULTS No Results PROCEDURES [...]
--- OUTSIDE RECORDS SUMMARY | 2018-08-29 23:23 | XMS REPORT ---
Author Author ALENA ÁLVAREZ [facility] Address [address] [place] [address] Care Team Providers Care Mileage Clerk Name Role Phone ALENA ÁLVAREZ Unavailable PROBLEMS Type Condition ICD9-CM Code YWS71-OK Code Onset Dates Condition Status SNOMED Code Problem Myocarditis, unspecified chronicity, 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 Active 11909056 Problem Sleep apnea, obstructive G47.33 Active 92223611 Problem Hyperlipidemia E78.5 Active 43245366 Problem HTN (hypertension) I10 Active 22236713 Problem Chronic pain G89.29 Active 97390632 Problem Chronic tension headaches G44.229 Active 606830246 Problem Blindness and low vision H54.10 Active 663812295 Problem 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 Active 094748411 Problem Body mass index (BMI) of 40.0-44.9 in adult Z68.41 Active 922334041 Problem CAD (coronary artery disease) I25.10 Active 63119496 Problem Mitral valve prolapse I34.1 Active 419138028 Problem Environmental allergies Z91.09 Active 272566473 Problem Post-traumatic stress disorder, chronic F43.12 Active 803655010 Problem Primary insomnia F51.01 Active 2898619 Problem Arrhythmia as indication for cardiac pacemaker replacement I49.9 Active 64013618 Problem Other male erectile dysfunction N52.8 Active 937594690 Problem Morbid (severe) obesity due to excess calories E66.01 Active 777123122 Problem Migraine without aura and without status migrainosus, not intractable G43.009 Active 701003381 Problem Chronic pain syndrome G89.4 Active 910590335 Problem Problems related to release from snf Z65.2 Active 309270682389111 Problem Other chronic pain G89.29 Active 20444148 Problem Major depressive disorder, recurrent, moderate F33.1 Active 79724940 Problem BMI 45.0-49.9, adult Z68.42 Active 827681926 Problem Anxiety F41.9 Active 33199262 Problem Open-angle glaucoma of both eyes H40.10X0 Active 93127431 Problem Sarcoidosis D86.9 Active 11507915 Problem Insomnia disorder with non-sleep disorder mental comorbidity G47.00 Active 48876193 Problem Supraventricular tachycardia I47.1 Active 1759143 Problem Resistant hypertension I10 Active 70844981 ALLERGIES No Information ENCOUNTERS Encounter Location Date Diagnosis [facility] [address], [place] [address] Aug, [facility] [id number] [place] [address] Jul, [facility] [id number] [place] [address] Jul, Left leg pain M79.605 [facility] [id number] [place] [address] Jul, [facility] [id number] [place] [address] Jul, BMI 45.0-49.9, adult Z68.42 [facility] [address], [place] [address] June, Post-traumatic stress disorder, unspecified F43.10 ; Major depressive disorder, recurrent, moderate F33.1 and Problems related to release from snf Z65.2 [facility] [address], [place] [address] June, Left leg pain M79.605 [facility] [address] [address] June, [facility] [address] [address] June, [facility] [id number] [place] [address] June, [facility] [address] [address] June, [facility] [address], [place] [address] June, HTN (hypertension) I10 [facility] [address], [place] [address] June, [facility] [address], [place] [address] June, [facility] [id number] [place] [address] June, [facility] [id number] [place] [address] June, [facility] [address] [place] [address], [place] [address] May, [facility] [id number] [place] [address] May, [facility] [id number] [place] [address] May, [facility] [address], [place] [address] May, [facility] [address] [place] [address] May, [facility] [address], [place] [address] May, [facility] [address], [place] [address] May, [facility] [address], [place] [address] May, Post-traumatic stress disorder, unspecified F43.10 ; Major depressive disorder, recurrent, moderate F33.1 and Problems related to release from snf Z65.2 [facility] [address], [place] [address] May, [facility] [address] [place] [address] May, [facility] [id number] [place] [address] May, [facility] [id number] [place] [address] May, [facility] [id number] [place] [address] May, [facility] [address] [place] [address] May, Left leg pain M79.605 [facility] [id number] [place] [address] May, [facility] [address] [place] [address] May, Pain in right shoulder M25.511 [facility] [address] [address] May, [facility] [id number] [place] [address] 16 May, 2018 Encounter for immunization Z23 [facility] [id number] [place] [address] May, [facility] [id number] [place] [address] May, [facility] [id number] [place] [address] May, HTN (hypertension) I10 [facility] [address] [place] [address] May, Other chronic pain G89.29 ; Pain in left knee M25.562 and 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 [facility] [address] [place] [address] May, [facility] [address] [place] [address] May, [facility] [address], [place] [address] May, Flank pain R10.9 [facility] [id number] [place] [address] May, HTN (hypertension) I10 [facility] [id number] [place] [address] May, Resistant hypertension I10 [facility] [id number] [place] [address] May, [facility] [address] [place] [address] May, Post-traumatic stress disorder, unspecified F43.10 ; Major depressive disorder, recurrent, moderate F33.1 and Problems related to release from snf Z65.2 [facility] [id number] [place] [address] May, HTN (hypertension) I10 [facility] [address] [place] [address] May, [facility] [address] [place] [address] Apr, [facility] [address], [place] [address] Apr, [facility] [id number] [place] [address] Apr, HTN (hypertension) I10 [facility] [address], [place] [address] Apr, [facility] [id number] [place] [address] Apr, [facility] [address], [place] [address] Apr, [facility] [address] [place] [address] 26 Apr, 2018 [facility] [address] [place] [address] Apr, [facility] [address] [place] [address] 22 Apr, 2018 HTN (hypertension) I10 [facility] [address] [place] [address] 22 Apr, 2018 [facility] [address] [facility] [id number] [place] [address] 21 Apr, 2018 [facility] [address] [place] [address], [place] [address] 20 Apr, 2018 [facility] [address] [place] [address] 19 Apr, 2018 [facility] [address] [place] [address] 18 Apr, 2018 Left leg pain M79.605 [facility] [address] [place] [address] 18 Apr, 2018 [facility] [address], [place] [address] 15 Apr, 2018 [facility] [address], [place] [address] 14 Apr, 2018 Acute bronchitis J20.9 [facility] [address], [place] [address] 14 Apr, 2018 [facility] [id number] [place] [address] 14 Apr, 2018 [facility] [id number], [place] [address] 13 Apr, 2018 [facility] [address], [place] [address] 12 Apr, 2018 [facility] [address], [place] [address] 07 Apr, 2018 Morbid obesity E66.01 [place] [id number] [place] [address] Apr, [facility] [id number] [place] [address] Apr, Contact dermatitis, unspecified contact dermatitis type, unspecified trigger L25.9 and Morbid obesity E66.[address] [facility] [id number] [place] [address] Apr, [place] [id number] [place] [address] Apr, [place] [id number] [place] [address] Mar, [place] [facility] [id number] [place] [address] Mar, Post-traumatic stress disorder, unspecified F43.10 ; Major depressive disorder, recurrent, moderate F33.1 and Problems related to release from snf Z65.2 [id number] [place] [address] 19 Mar, 2018 Left leg pain M79.605 [address] [place] [address] 14 Mar, 2018 Arrhythmia as indication for cardiac pacemaker replacement I49.9 ; HTN (hypertension) I10 ; Primary insomnia F51.01 ; Chronic pain syndrome G89.4 ; 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 and Myocarditis, unspecified chronicity, 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 [id number] [place] [address] 06 Mar, 2018 Post-traumatic stress disorder, unspecified F43.10 ; Major depressive disorder, recurrent, moderate F33.1 and Problems related to release from snf Z65.2 [place] [address] [place] [address] Feb, Open-angle glaucoma of both eyes H40.10X0 [place] [address] [place] [address] Feb, Post-traumatic stress disorder, chronic F43.12 ; Anxiety F41.9 ; Problems related to release from snf Z65.2 and BMI 40.0-44.9, adult Z68.41 [place] [address] [place] [address] Feb, Left leg pain M79.605 [place] [address] [place] [address] Feb, [facility] [facility] [address] [place] [address] Jan, Left leg pain M79.605 [place] [address] [place] [address] Jan, [place] [address] [place] [address] Jan, Post-traumatic stress disorder, unspecified F43.10 ; Major depressive disorder, recurrent, moderate F33.1 and Problems related to release from snf Z65.2 [place] [address] [place] [address] Jan, Insomnia disorder with non-sleep disorder mental comorbidity G47.00 ; Post-traumatic stress disorder, chronic F43.12 ; Anxiety F41.9 and BMI 40.0- 44.9, adult Z68.41 [place] [facility] [address] [place] [address] 14 Jan, 2018 Encounter for long-term (current) use of other medications Z79.899 [place] [facility] [address] [place] [address] Jan, [facility] [facility] [address] [place] [address] Dec, Left leg pain M79.605 [facility] [address] [place] [address] Dec, Encounter for long-term (current) use of other medications Z79.899 [facility] [address] [place] [address] Dec, [facility] [id number] [place] [address] Dec, Tooth pain K08.89 ; Active dental caries K02.9 and BMI 40.0-44.9, adult Z68.41 [facility] [id number] [place] [address] 15 Dec, 2017 Acute bronchitis J20.9 and BMI 40.0-44.9, adult Z68.41 [facility] [id number] [place] [address] Dec, [facility] [id number] [place] [address] Dec, [facility] [id number] [place] [address] Dec, [facility] [address] [place] [address] Dec, [facility] [address] [place] [address] Nov, [facility] [address] [place] [address] Nov, Left leg pain M79.605 [address] [address] [facility] [address] [id number] [id number] Nov, [facility] [address] [place] [address] Nov, Encounter for long-term (current) use of other medications Z79.899 [facility] [id number] [place] [address] Nov, [facility] [id number] [place] [address] Nov, Left leg pain M79.605 [facility] [id number] [place] [id number] 28 Oct, 2017 Dental examination Z01.20 [facility] [address] [address] Oct, Insomnia disorder with non-sleep disorder mental comorbidity G47.00 [place] [address] [address] Oct, Post-traumatic stress disorder, chronic F43.12 ; Insomnia disorder with non-sleep disorder mental comorbidity G47.00 and BMI 40.0-44.9, adult Z68.41 [place] [address] [address] Oct, [facility] [id number] [place] [address] 18 Oct, 2017 Insect bite (nonvenomous), left lower leg, initial encounter S80.862A ; Bitten or stung by nonvenomous insect and other nonvenomous arthropods, initial encounter W57.XXXA and BMI 40.0-44.9, adult Z68.41 [facility] [id number] [place] [address] Oct, Left leg pain M79.605 [facility] [address] [place] [address] 04 Oct, 2017 Post-traumatic stress disorder, unspecified F43.10 ; Major depressive disorder, recurrent, moderate F33.1 and Problems related to release from snf Z65.2 [facility] [address] [place] [address] Sep, Arrhythmia as indication for cardiac pacemaker replacement I49.9 [place] [address] [place] [address] Sep, [facility] [address] [place] [address] Sep, HTN (hypertension) I10 [facility] [address] [place] [address] 17 Sep, 2017 [facility] [address] [address] 16 Sep, 2017 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 ; Chronic pain G89.29 ; Supraventricular tachycardia I47.1 and Body mass index (BMI) of 40.0-44.9 in adult Z68.41 [facility] [address] [address] 15 Sep, 2017 [facility] [address] [address] Sep, Sarcoidosis D86.9 [facility] [address] [address] Sep, Sarcoidosis D86.9 [facility] [address] [address] Sep, [facility] [address] [place] [address] Sep, [facility] [address] [place] [address] Sep, [facility] [address] [place] [address] Sep, [facility] [address] [place] [address] Sep, Left leg pain M79.605 [facility] [address] [place] [address] 07 Sep, 2017 HTN (hypertension) I10 [facility] [id number] [place] [address] Sep, [facility] [address], [place] [address] Sep, Post-traumatic stress disorder, unspecified F43.10 ; Major depressive disorder, recurrent, moderate F33.1 and Problems related to release from snf Z65.2 [facility] [address], [place] [address] Sep, [facility] [id number] [place] [address] Aug, [facility] [address] [place] [address] Aug, Sarcoidosis D86.9 [facility] [address] [place] [address] Aug, Sarcoidosis D86.9 [facility] [address] [place] [address] Aug, HTN (hypertension) I10 [place] [address] [place] [address] Aug, Post-traumatic stress disorder, unspecified F43.10 ; Major depressive disorder, recurrent, moderate F33.1 and Problems related to release from snf Z65.2 [place] [address], [place] [address] Aug, [place] [address] [place] [address] Aug, Left leg pain M79.605 [facility] [address], [place] [address] Jul, Post-traumatic stress disorder, chronic F43.12 ; Anxiety F41.9 ; Problems related to release from snf Z65.2 and BMI 40.0-44.9, adult Z68.41 [place] [address] [place] [address] Jul, HTN (hypertension) I10 ; Body mass index (BMI) of 40.0-44.9 in adult Z68.41 ; Acute swimmer''s ear of both sides H60.333 and Chronic pain G89.29 [facility] [address] [place] [address] 19 Jul, 2017 Glaucoma H40.9 [facility] [address] [place] [address] 14 Jul, 2017 [facility] [address] [place] [address] 13 Jul, 2017 Sarcoidosis D86.9 [place] [address] [address] 12 Jul, 2017 Left leg pain M79.605 [place] [address] [place] [address] Jul, Sarcoidosis D86.9 [facility] [address] [place] [address] Jul, Post-traumatic stress disorder, unspecified F43.10 ; Major depressive disorder, recurrent, moderate F33.1 and Problems related to release from snf Z65.2 [facility] [id number] [place] [address] June, [facility] [address] [place] [address] 30 Jun, 2017 Sore throat J02.9 and BMI 40.0-44.9, adult Z68.41 [facility] [address] [place] [address] June, [facility] [address] [address] June, [facility] [address] [place] [address] June, [facility] [address] [address] June, Left leg pain M79.605 [facility] [address], [place] [address] June, Sarcoidosis D86.9 [facility] [address] [address] June, [facility] [address] [place] [address] June, [facility] [address] [place] [address] June, Left leg pain M79.605 [facility] [address] [place] [address] May, [facility] [address] [place] [address] May, [facility] [id number] [place] [id number] May, [facility] [address], [place] [address] May, Left leg pain M79.605 [facility] [address] [place] [address] May, Post-traumatic stress disorder, unspecified F43.10 ; Major depressive disorder, recurrent, moderate F33.1 and Problems related to release from snf Z65.2 [facility] [address] [place] [address] May, Chronic pain G89.29 ; Anxiety F41.9 ; Chest pain, unspecified type R07.9 and BMI 40.0-44.9, adult Z68.41 [facility] [address] [address] Apr, [facility] [id number] [place] [address] Apr, Left leg pain M79.605 [facility] [id number] [place] [phone] 27 Apr, 2017 Post-traumatic stress disorder, unspecified F43.10 ; Problems related to release from snf Z65.2 ; Anxiety F41.9 and BMI 40.0-44.9, adult Z68.41 [facility] [id number] [place] [phone] Apr, [facility] [id number] [place] [address] Apr, Left leg pain M79.605 [place] [address] [address] 13 Apr, 2017 Post-traumatic stress disorder, unspecified F43.10 ; Major depressive disorder, recurrent, moderate F33.1 and Problems related to release from snf Z65.2 [place] [id number] [place] [id number] 12 Apr, 2017 [facility] [id number] [place] [phone] Apr, Chronic pain G89.29 ; [place] C49.9 ; Morbid (severe) obesity due to excess calories E66.01 ; Anxiety F41.9 and BMI 40.0-44.9, adult Z68.41 [facility] [id number] [place] [id number] 10 Apr, 2017 Sore throat J02.9 and BMI 40.0-44.9, adult Z68.41 [facility] [id number] [place] [address] 02 Apr, 2017 Left leg pain M79.605 [facility] [address] [place] [id number] Mar, Dental examination Z01.20 [place] [id number] [place] [address] Mar, [facility] [id number] [place] [address] Mar, Cough R05 ; Viral gastroenteritis A08.4 and BMI 40.0-44.9, adult Z68.41 [facility] [id number] [place] [address] Mar, Left leg pain M79.605 [place] [address] [address] Mar, Post-traumatic stress disorder, unspecified F43.10 ; Major depressive disorder, recurrent, moderate F33.1 and Problems related to release from snf Z65.2 [place] [address] [address] Feb, Left leg pain M79.605 [place] [id number] [place] [address] Feb, [place] [id number] [place] [address] Feb, BMI 40.0-44.9, adult Z68.41 ; Chronic pain syndrome G89.4 ; Migraine without aura and without status migrainosus, not intractable G43.009 ; Mitral valve prolapse I34.1 and 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 [facility] [id number] [place] [address] Feb, Post-traumatic stress disorder, chronic F43.12 ; Anxiety F41.9 ; Problems related to release from snf Z65.2 and BMI 40.0-44.9, adult Z68.41 [place] [id number] [place] [address] Feb, Post-traumatic stress disorder, unspecified F43.10 ; Major depressive disorder, recurrent, moderate F33.1 and Problems related to release from snf Z65.2 [place] [id number] [place] [address] Feb, Left leg pain M79.605 [facility] [address] [place] [address] Jan, Post-traumatic stress disorder, unspecified F43.10 ; Major depressive disorder, recurrent, moderate F33.1 and Problems related to release from snf Z65.2 [facility] [id number] [place] [address] Jan, [facility] [id number] [place] [address] Jan, [facility] [id number] [place] [address] Jan, Anxiety F41.9 [facility] [id number] [place] [address] Jan, Left leg pain M79.605 [facility] [id number] [place] [address] Dec, Left leg pain M79.605 [facility] [id number] [place] [address] Dec, [facility] [id number] [place] [address] 15 Dec, 2016 Post-traumatic stress disorder, unspecified F43.10 ; Major depressive disorder, recurrent, moderate F33.1 and Problems related to release from snf Z65.2 [facility] [id number] [place] [address] 31 Nov, 2016 Chronic pain G89.29 and Anxiety F41.9 [facility] [id number] [place] [address] 24 Nov, 2016 Chronic pain G89.29 and Anxiety F41.9 [facility] [address] [place] [address] 16 Nov, 2016 Post-traumatic stress disorder, unspecified F43.10 ; Major depressive disorder, recurrent, moderate F33.1 and Problems related to release from snf Z65.2 [facility] [id number] [place] [address] 09 Nov, 2016 Other abnormal findings in specimens from other organs, systems and tissues R89.8 ; Other male erectile dysfunction N52.8 ; Body mass index (BMI) of 40.0-44.9 in adult Z68.41 and Morbid (severe) obesity due to excess calories E66.01 [facility] [address] [address] Nov, Post-traumatic stress disorder, unspecified F43.10 ; Major depressive disorder, recurrent, moderate F33.1 and Problems related to release from snf Z65.2 [facility] [address] [id number] Oct, Dental examination Z01.20 [facility] [address] [address] Oct, [facility] [address] [address] Oct, Encounter for immunization Z23 [place] [address] [address] Oct, Chronic pain G89.29 ; Anxiety F41.9 ; Arrhythmia as indication for cardiac pacemaker replacement I49.9 and Glaucoma H40.9 [facility] [id number] [place] [address] Oct, Anxiety F41.9 ; Post-traumatic stress disorder, chronic F43.12 and Problems related to release from snf Z65.2 [facility] [id number] [place] [address] Oct, Post-traumatic stress disorder, unspecified F43.10 ; Major depressive disorder, recurrent, moderate F33.1 and Problems related to release from snf Z65.2 [facility] [id number] [place] [address] Sep, Chronic pain G89.29 and Anxiety F41.9 [place] [address] [address] Sep, Post-traumatic stress disorder, unspecified F43.10 ; Major depressive disorder, recurrent, moderate F33.1 and Problems related to release from snf Z65.2 [place] [address] [place] [address] Sep, Post-traumatic stress disorder, unspecified F43.10 ; Major depressive disorder, recurrent, moderate F33.1 and Problems related to release from snf Z65.2 [place] [id number] [place] [address] Sep, Chronic pain G89.29 [place] [id number] [place] [address] Aug, Dental caries, unspecified K02.9 [place] [id number] [place] [address] Aug, Sleep apnea, obstructive G47.33 ; Obesity E66.9 ; Chronic pain G89.29 ; HTN (hypertension) I10 ; Major depressive disorder, recurrent, moderate F33.1 ; Anxiety F41.9 ; Chronic tension headaches G44.229 ; Mitral valve prolapse I34.1 ; Arrhythmia as indication for cardiac pacemaker replacement I49.9 ; Dental caries, unspecified K02.9 ; Primary insomnia F51.01 and Hyperlipidemia E78.5 [place] [address] [address] Aug, Post-traumatic stress disorder, unspecified F43.10 ; Major depressive disorder, recurrent, moderate F33.1 and Problems related to release from snf Z65.2 [place] [address] [place] [address] Aug, Dental examination Z01.20 [facility] [address] [id number] Aug, Dental examination Z01.20 [facility] [address] [place] [address] Aug, Post-traumatic stress disorder, unspecified F43.10 ; Major depressive disorder, recurrent, moderate F33.1 and Problems related to release from snf Z65.2 [place] [id number] [place] [address] Aug, Chronic pain G89.29 and Primary insomnia F51.01 [place] [id number] [place] [address] Jul, [place] [id number] [place] [address] Jul, [place] [id number] [place] [address] Jul, Nausea R11.0 [place] [id number] [place] [address] Jul, Arrhythmia as indication for cardiac pacemaker replacement I49.9 [place] [id number] [place] [address] Jul, Post-traumatic stress disorder, unspecified F43.10 ; Major depressive disorder, recurrent, moderate F33.1 and Problems related to release from snf Z65.2 [place] [id number] [place] [address] 09 Jul, 2016 Anxiety F41.9 [place] [id number] [place] [address] 08 Jul, 2016 Chronic pain G89.29 [place] [address] [place] [address] Jul, Sleep apnea, obstructive G47.33 ; Hyperlipidemia E78.5 ; Chronic pain G89.29 ; Blindness and low vision H54.10 ; Major depressive disorder, recurrent, moderate F33.1 ; Anxiety F41.9 ; Mitral valve prolapse I34.1 ; Arrhythmia as indication for cardiac pacemaker replacement I49.9 ; Primary insomnia F51.01 ; Bilateral headaches R51 and Environmental allergies Z91.09 [place] [address] [address] Jul, Post-traumatic stress disorder, unspecified F43.10 ; Major depressive disorder, recurrent, moderate F33.1 and Problems related to release from snf Z65.2 [place] [address] [place] [address] June, Post-traumatic stress disorder, chronic F43.12 ; Anxiety F41.9 ; Problems related to release from snf Z65.2 ; Sleep apnea, obstructive G47.33 and Primary insomnia F51.01 [place] [id number] [place] [address] June, [place] [address] [place] [address] June, [place] [id number] [place] [address] June, [place] [address] [place] [address] June, Chronic pain G89.29 [place] [address] [place] [address] June, Chronic pain G89.29 [place] [address] [place] [address] June, Lipoma of left lower extremity D17.24 ; Open wound T14.8 and Swelling of left lower extremity M79.89 [place] [address] [place] [address] June, Post-traumatic stress disorder, unspecified F43.10 ; Major depressive disorder, recurrent, moderate F33.1 and Problems related to release from snf Z65.2 [facility] [address], [place] [address] May, Lipoma of left lower extremity D17.24 ; Major depressive disorder, recurrent, moderate F33.1 ; Sleep apnea, obstructive G47.33 ; Hyperlipidemia E78.5 ; Obesity E66.9 ; HTN (hypertension) I10 ; Glaucoma H40.9 ; CAD (coronary artery disease) I25.10 ; Chronic tension headaches G44.229 ; Chronic pain G89.29 ; Anxiety F41.9 ; Nausea R11.0 and Primary insomnia F51.01 [place] [id number] [place] [address] May, [place] [address] [address] May, Chronic pain G89.[address] [address] May, [place] [id number] [place] [address] 31 Apr, 2016 Post-traumatic stress disorder, unspecified F43.10 ; Major depressive disorder, recurrent, moderate F33.1 and Problems related to release from snf Z65.2 [place] [id number] [place] [address] Apr, Primary insomnia F51.01 ; Post-traumatic stress disorder, chronic F43.12 and Problems related to release from snf Z65.2 [place] [id number] [place] [address] 17 Apr, 2016 Post-traumatic stress disorder, unspecified F43.10 ; Major depressive disorder, recurrent, moderate F33.1 and Problems related to release from snf Z65.2 [place] [address] [place] [address] Apr, [address] [address] Apr, Sleep apnea, obstructive G47.33 ; Chronic pain G89.29 ; HTN (hypertension) I10 ; Mitral valve prolapse I34.1 ; Shoulder pain, left M25.512 ; Arrhythmia as indication for cardiac pacemaker replacement I49.9 ; Glaucoma H40.9 ; Bilateral headaches R51 ; Environmental allergies Z91.09 ; Primary insomnia F51.01 and Nausea R11.0 [place] [id number] [place] [address] 15 Apr, 2016 [place] [address] [place] [address] 15 Apr, 2016 [place] [address] [id number] Apr, Post-traumatic stress disorder, unspecified F43.10 ; Major depressive disorder, recurrent, moderate F33.1 and Problems related to release from snf Z65.2 [place] [address] [address] 07 Apr, 2016 HTN (hypertension) I10 [place] [address] [address] Apr, HTN (hypertension) I10 [place] [address] [address] 14 Mar, 2016 Chronic pain G89.29 ; Primary insomnia F51.01 and Problems related to release from snf Z65.2 [place] [address] [place] [address] 07 Mar, 2016 Post-traumatic stress disorder, unspecified F43.10 ; Major depressive disorder, recurrent, moderate F33.1 and Problems related to release from snf Z65.2 [place] [address] [place] [address] Feb, Post-traumatic stress disorder, unspecified F43.10 ; Major depressive disorder, recurrent, moderate F33.1 and Problems related to release from snf Z65.2 [place] [address] [place] [address] Feb, Chronic tension headaches G44.229 [place] [address] [place] [address] Feb, Sleep apnea, obstructive G47.33 ; Obesity [...] pacemaker replacement I49.9 and Primary insomnia F51.01 [place] [address] [address] 17 Feb, 2016 Post-traumatic stress disorder, unspecified F43.10 and Chronic pain G89.29 [place] [address] [address] Feb, [facility] [address] [id number] Feb, Dental caries K02.[address] [address] 06 Feb, 2016 [place] [address] [address] Feb, Post-traumatic stress disorder, unspecified F43.10 ; Major depressive disorder, recurrent, moderate F33.1 and Problems related to release from snf Z65.2 [place] [address] [place] [address] Jan, Sleep apnea, obstructive G47.33 and Chronic pain G89.29 [place] [address] [place] [address] Jan, [place] [address] [address] 14 Jan, 2016 Dental examination Z01.20 [place] [address] [place] [address] 09 Jan, [address] [address] Jan, [facility] [address], [place] [address] Dec, Post-traumatic stress disorder, unspecified F43.10 ; Major depressive disorder, recurrent, moderate F33.1 and Problems related to release from snf Z65.2 [place] [address] [address] Dec, Encounter for immunization Z23 ; Problems related to release from snf Z65.2 ; Sleep apnea, obstructive G47.33 and Post-traumatic stress disorder, chronic F43.12 [place] [address] [place] [address] Dec, Sleep apnea, obstructive G47.33 ; Hyperlipidemia E78.5 ; Chronic pain G89.29 ; Glaucoma H40.9 ; HTN (hypertension) I10 ; Post-traumatic stress disorder, unspecified F43.10 ; Anxiety F41.9 ; Chronic tension headaches G44.229 ; Mitral valve prolapse I34.1 and CAD (coronary artery disease) I25.10 [place] [address] [place] [address] Dec, Post-traumatic stress disorder, unspecified F43.10 ; Major depressive disorder, recurrent, moderate F33.1 and Problems related to release from snf Z65.2 [place] [address], [place] [address] Nov, Chronic pain G89.29 [place] [address] [place] [address] Nov, Post-traumatic stress disorder, unspecified F43.10 ; Major depressive disorder, recurrent, moderate F33.1 and Problems related to release from snf Z65.2 [place] [address] [place] [address] Oct, [place] [address], [place] [address] Oct, [place] [address] [place] [address] [place] [address] 16 Oct, 2015 Post-traumatic stress disorder, unspecified F43.10 ; Major depressive disorder, recurrent, moderate F33.1 and Problems related to release from snf Z65.2 [facility] [id number] [place] [address] 08 Oct, 2015 [facility] [address] [place] [address] 07 Oct, 2015 Environmental allergies Z91.09 ; Cough R05 and Open-angle glaucoma of both eyes H40.10X0 [place] [address] [place] [address] Sep, [place] [address] [place] [address] Sep, Post-traumatic stress disorder, unspecified F43.10 ; Major depressive disorder, recurrent, moderate F33.1 and Problems related to release from snf Z65.2 [place] [address] [place] [address] 16 Sep, 2015 Chronic pain G89.29 [place] [address] [place] [address] Sep, Pain in left shoulder M25.512 ; Pain in right shoulder M25.511 and Other chronic pain G89.29 [place] [address] [place] [address] Sep, [facility] [address] [place] [address] Sep, [facility] [address] [place] [address] Sep, [facility] [address] [place] [id number] Aug, Dental examination Z01.20 [facility] [address] [place] [address] Aug, Post-traumatic stress disorder, unspecified F43.10 ; Open-angle glaucoma of both eyes H40.10X0 and Problems related to release from snf Z65.2 [facility] [address] [place] [address] Aug, [facility] [address] [place] [address] Aug, Sleep apnea, obstructive G47.33 ; Obesity E66.9 ; Hyperlipidemia E78.5 ; Bilateral headaches R51 ; HTN (hypertension) I10 ; Post-traumatic stress disorder, unspecified F43.10 ; Anxiety F41.9 ; Neuropathy G62.9 ; Glaucoma H40.9 and Chronic pain G89.29 [facility] [address] [place] [id number] Aug, Encounter for dental examination Z01.20 [facility] [address] [place] [address] Aug, Post-traumatic stress disorder, unspecified F43.10 ; Major depressive disorder, recurrent, moderate F33.1 and Problems related to release from snf Z65.2 [facility] [address] [place] [address] Aug, [facility] [address] [place] [address] Jul, [facility] [address] [place] [address] Jul, Post-traumatic stress disorder, unspecified F43.10 and Major depressive disorder, recurrent, moderate F33.1 [facility] [address] [place] [address] Jul, [facility] [address] [place] [address] Jul, [facility] [address] [place] [address] Jul, Chronic pain G89.29 [facility] [address], [place] [address] June, Post-traumatic stress disorder, unspecified F43.10 and Major depressive disorder, recurrent, moderate F33.1 [facility] [address], [place] [address] June, [facility] [address] [place] [address] June, Chronic pain G89.29 [facility] [address] [place] [address] June, Post-traumatic stress disorder, unspecified F43.10 and Major depressive disorder, recurrent, moderate F33.1 [place] [address] [place] [address] May, Post-traumatic stress disorder, unspecified F43.10 and Major depressive disorder, recurrent, moderate F33.1 [place] [address] [place] [address] May, [facility] [address] [place] [address] 08 May, 2015 [facility] [address] [place] [address] May, [place] [address] [place] [address] Apr, [facility] [address] [place] [address] Apr, Post-traumatic stress disorder, unspecified F43.10 and Sleep apnea, obstructive G47.33 [facility] [address] [place] [address] Apr, [facility] [address] [place] [address] Apr, Shoulder pain, left M25.512 [facility] [address] [place] [address] Apr, Post-traumatic stress disorder, unspecified F43.10 and Major depressive disorder, recurrent, moderate F33.1 [place] [address] [place] [address] Apr, [facility] [id number] [place] [address] Apr, [facility] [address] [place] [address] Apr, [place] [address] [place] [address] Apr, Left shoulder pain M25.512 [place] [address] [place] [address] Mar, [place] [address] [address] Mar, [place] [address] [place] [address] Mar, [place] [address] [place] [address] Mar, Sleep apnea, obstructive G47.33 ; Obesity E66.9 ; Chronic pain G89.29 ; Hyperlipidemia E78.5 ; HTN (hypertension) I10 ; Blindness and low vision H54.10 ; Major depressive disorder, recurrent, moderate F33.1 and Anxiety F41.9 [place] [address] [place] [address] Mar, [place] [address] [id number] [place] [id number] Mar, Post-traumatic stress disorder, unspecified F43.10 and Major depressive disorder, recurrent, moderate F33.1 [place] [address] [id number] [place] [id number] 08 Mar, 2015 [place] [id number] [address] 04 Mar, 2015 HTN (hypertension) I10 ; Blindness and low vision H54.10 ; Obesity E66.9 ; Hyperlipidemia E78.5 ; Glaucoma H40.9 ; Chronic pain G89.29 and CAD (coronary artery disease) I25.10 [place] [id number] [place] [id number] Feb, [place] [address] [id number] [place] [id number] Feb, Post-traumatic stress disorder, unspecified F43.10 ; Obesity E66.9 ; Sleep apnea, obstructive G47.33 and Open-angle glaucoma of both eyes H40.10X0 [place] [id number] [place] [id number] Feb, Post-traumatic stress disorder, unspecified F43.10 and Major depressive disorder, recurrent, moderate F33.1 [place] [id number] [place] [id number] Feb, [place] [id number] [place] [id number] Feb, [place] [id number] [place] [id number] Feb, HTN (hypertension) I10 ; Post-traumatic stress disorder, unspecified F43.10 ; Blindness and low vision H54.10 ; Obesity E66.9 ; Hyperlipidemia E78.5 ; Chronic pain G89.29 ; Glaucoma H40.9 ; Mitral valve prolapse I34.1 and Bilateral headaches R51 [place] [id number] [place] [id number] Feb, [place] [id number] [place] [id number] Feb, Post-traumatic stress disorder, unspecified F43.10 and Major depressive disorder, recurrent, moderate F33.1 [place] [id number] [place] [id number] Feb, [facility] [id number] [place] [phone] Feb, [facility] [id number] [place] [id number] Jan, [place] [id number] [place] [id number] Jan, [facility] [id number] [place] [id number] Jan, Obesity E66.9 ; HTN (hypertension) I10 ; Blindness and low vision H54.10 ; Major depressive disorder, recurrent, moderate F33.1 ; Glaucoma H40.9 ; Hyperlipidemia E78.5 ; Sleep apnea, obstructive G47.33 ; Chronic pain G89.29 ; Anxiety F41.9 ; Chronic tension headaches G44.229 and Cough R05 [place] [id number] [place] [id number] Jan, [place] [id number] [place] [id number] Jan, [place] [address] [address] [id number] [place] [id number] Jan, Post-traumatic stress disorder, unspecified F43.10 ; Obesity E66.9 ; Sleep apnea, obstructive G47.33 and Open-angle glaucoma of both eyes H40.10X0 [place] [address] [address] [id number] [place] [id number] Jan, [place] [address] [id number] [place] [id number] Jan, Post-traumatic stress disorder, unspecified F43.10 and Major depressive disorder, recurrent, moderate F33.1 [place] [address] [address] [id number] [place] [id number] Dec, [place] [address] [address] Dec, Sleep apnea, obstructive G47.33 ; Obesity E66.9 ; Hyperlipidemia E78.5 ; Glaucoma H40.9 ; Chronic pain G89.29 ; HTN (hypertension) I10 ; Blindness and low vision H54.10 ; Anxiety F41.9 and CAD (coronary artery disease) I25.10 [facility] [address] [place] [phone] Nov, [facility] [address] [id number] Nov, [facility] [address] [place] [phone] Nov, [facility] [address] [place] [id number] Nov, [address] [phone] Nov, [facility] [address] [place] [id number] Nov, Encounter for immunization Z23 ; Sleep apnea, obstructive G47.33 ; Obesity E66.9 ; Hyperlipidemia E78.5 ; Glaucoma H40.9 ; Chronic pain G89.29 ; Anxiety F41.9 ; Chronic tension headaches G44.229 and HTN (hypertension) I10 [facility] [address] [place] [id number] [place] [phone] Nov, [facility] [address] [place] [phone] Nov, [facility] [address] [place] [phone] Nov, Dizziness R42 [facility] [address] [place] [phone] Nov, [facility] [address] [place] [phone] Oct, [place] [address] [address] [id number] [place] [phone] Oct, [place] [address] [id number] Oct, [facility] [id number] [place] [id number] Oct, [place] [address] [address] Oct, Dizziness 780.4 ; Essential hypertension 401.9 ; Obesity 278.00 ; Hyperlipidemia 272.4 ; Chronic pain 338.29 ; Glaucoma 365.9 and Anxiety 300.00 [place] [address] [address] Oct, Essential hypertension 401.9 ; Hyperlipidemia 272.4 ; Glaucoma 365.9 ; Obesity 278.00 ; Chronic pain 338.29 and Allergy to insects V15.06 [place] [address] [id number] [place] [id number] Sep, [place] [address] [id number] Sep, [place] [address] [place] [id number] [place] [phone] Sep, [place] [address] [id number] [place] [phone] Sep, [place] [address] [place] [id number] [place] [id number] Aug, Essential hypertension 401.9 ; Obesity 278.00 ; Hyperlipidemia 272.4 ; Glaucoma 365.9 ; Lipoma 214.9 ; Mitral valve prolapse 424.0 ; Angina at rest 413.9 ; Lymphedema 457.1 and Chronic pain 338.29 IMMUNIZATIONS No Known Immunizations SOCIAL HISTORY Never Assessed REASON FOR VISIT Refill Request PLAN OF CARE VITAL SIGNS MEDICATIONS Medication Instructions Dosage Frequency Start Date End Date Duration Status ProAir HFA 108 (90 Base) MCG/ACT Inhalation every -4 6 hrs 2 puffs as needed Apr, Active RESULTS No Results PROCEDURES No [...]
--- OUTSIDE RECORDS SUMMARY | 2018-08-29 23:25 | XMS REPORT ---
Author Author ALENA ÁLVAREZ [facility] Address [address] [place] [address] Care Team Providers Care Patient Coordinator Front Desk Name Role Phone ALENA ÁLVAREZ Unavailable PROBLEMS Type Condition ICD9-CM Code IZP09-XE Code Onset Dates Condition Status SNOMED Code Problem Myocarditis, unspecified chronicity, 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 Active 04196320 Problem Sleep apnea, obstructive G47.33 Active 25913337 Problem Hyperlipidemia E78.5 Active 96270121 Problem HTN (hypertension) I10 Active 93042623 Problem Chronic pain G89.29 Active 15339878 Problem Chronic tension headaches G44.229 Active 254558440 Problem Blindness and low vision H54.10 Active 730154279 Problem 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 Active 511424451 Problem Body mass index (BMI) of 40.0-44.9 in adult Z68.41 Active 808668283 Problem CAD (coronary artery disease) I25.10 Active 66131803 Problem Mitral valve prolapse I34.1 Active 537819262 Problem Environmental allergies Z91.09 Active 651959671 Problem Post-traumatic stress disorder, chronic F43.12 Active 036738914 Problem Primary insomnia F51.01 Active 0990246 Problem Arrhythmia as indication for cardiac pacemaker replacement I49.9 Active 23028308 Problem Other male erectile dysfunction N52.8 Active 424095337 Problem Morbid (severe) obesity due to excess calories E66.01 Active 732981861 Problem Migraine without aura and without status migrainosus, not intractable G43.009 Active 199575432 Problem Chronic pain syndrome G89.4 Active 941463471 Problem Problems related to release from custodial Z65.2 Active 819702135781444 Problem Other chronic pain G89.29 Active 93211283 Problem Major depressive disorder, recurrent, moderate F33.1 Active 02063498 Problem BMI 45.0-49.9, adult Z68.42 Active 515243048 Problem Anxiety F41.9 Active 21135975 Problem Open-angle glaucoma of both eyes H40.10X0 Active 67586652 Problem Sarcoidosis D86.9 Active 39732800 Problem Insomnia disorder with non-sleep disorder mental comorbidity G47.00 Active 19105292 Problem Supraventricular tachycardia I47.1 Active 7839104 Problem Resistant hypertension I10 Active 48782055 ALLERGIES No Information ENCOUNTERS Encounter Location Date Diagnosis [facility] [id number], [place] [address] Aug, [facility] [id number] [place] [address] Jul, [facility] [id number] [place] [address] Jul, Left leg pain M79.605 [facility] [id number] [place] [address] Jul, [facility] [id number] [place] [address] Jul, BMI 45.0-49.9, adult Z68.42 [facility] [id number] [address] June, Post-traumatic stress disorder, unspecified F43.10 ; Major depressive disorder, recurrent, moderate F33.1 and Problems related to release from custodial Z65.2 [facility] [address], [place] [address] June, Left leg pain M79.605 [facility] [id number] [address] June, [facility] [id number], [place] [address] June, [facility] [id number] [place] [address] June, [facility] [id number] [address] June, [facility] [address], [place] [address] June, HTN (hypertension) I10 [facility] [id number] [address] June, [facility] [id number] [address] June, [facility] [id number] [place] [address] June, [facility] [id number] [place] [address] June, [facility] [id number] [place] [address], [place] [address] May, [facility] [id number] [place] [address] May, [facility] [id number] [place] [address] May, [facility] [address], [place] [address] May, [facility] [id number] [place] [address] May, [facility] [address], [place] [address] May, [facility] [address], [place] [address] May, [facility] [address], [place] [address] May, Post-traumatic stress disorder, unspecified F43.10 ; Major depressive disorder, recurrent, moderate F33.1 and Problems related to release from custodial Z65.2 [facility] [address], [place] [address] May, [facility] [id number] [place] [address] May, [facility] [id number] [place] [address] May, [facility] [id number] [place] [address] May, [facility] [id number] [place] [address] May, [facility] [id number] [place] [address] May, Left leg pain M79.605 [facility] [id number] [place] [address] May, [facility] [id number] [place] [address] May, Pain in right shoulder M25.511 [facility] [address] [address] May, [facility] [id number] [place] [address] 16 May, 2018 Encounter for immunization Z23 [facility] [id number] [place] [address] May, [facility] [id number] [place] [address] May, [facility] [id number] [place] [address] May, HTN (hypertension) I10 [facility] [id number] [place] [address] May, Other chronic pain G89.29 ; Pain in left knee M25.562 and 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 [facility] [id number] [place] [address] May, [facility] [id number] [place] [address] May, [facility] [address], [place] [address] May, Flank pain R10.9 [facility] [id number] [place] [address] May, HTN (hypertension) I10 [facility] [id number] [place] [address] May, Resistant hypertension I10 [facility] [id number] [place] [address] May, [facility] [id number] [place] [address] May, Post-traumatic stress disorder, unspecified F43.10 ; Major depressive disorder, recurrent, moderate F33.1 and Problems related to release from custodial Z65.2 [facility] [id number] [place] [address] May, HTN (hypertension) I10 [facility] [id number] [place] [address] May, [facility] [id number] [place] [address] Apr, [facility] [address], [place] [address] Apr, [facility] [id number] [place] [address] Apr, HTN (hypertension) I10 [facility] [address], [place] [address] Apr, [facility] [id number] [place] [address] Apr, [facility] [address], [place] [address] Apr, [facility] [id number] [place] [address] 26 Apr, 2018 [facility] [id number] [place] [address] Apr, [facility] [id number] [place] [address] 22 Apr, 2018 HTN (hypertension) I10 [facility] [id number] [place] [address] 22 Apr, 2018 [facility] [address] [facility] [id number] [address] 21 Apr, 2018 [facility] [id number] [place] [address], [place] [address] 20 Apr, 2018 [facility] [id number] [place] [address] 19 Apr, 2018 [facility] [id number] [place] [address] 18 Apr, 2018 Left leg pain M79.605 [facility] [id number] [place] [address] 18 Apr, 2018 [facility] [address], [place] [address] 15 Apr, 2018 [facility] [address], [place] [address] 14 Apr, 2018 Acute bronchitis J20.9 [facility] [id number], [place] [address] 14 Apr, 2018 [facility] [id number] [place] [address] 14 Apr, 2018 [facility] [id number], [place] [address] 13 Apr, 2018 [facility] [address], [place] [address] 12 Apr, 2018 [facility] [address], [place] [address] 07 Apr, 2018 Morbid obesity E66.01 [address] [facility] [id number] [place] [address] Apr, [facility] [id number] [place] [address] Apr, Contact dermatitis, unspecified contact dermatitis type, unspecified trigger L25.9 and Morbid obesity E66.01 [facility] [id number] [place] [address] Apr, [place] [facility] [id number] [place] [address] Apr, [place] [facility] [id number] [place] [address] Mar, [facility] [id number] [place] [address] Mar, Post-traumatic stress disorder, unspecified F43.10 ; Major depressive disorder, recurrent, moderate F33.1 and Problems related to release from custodial Z65.2 [id number] [place] [address] 19 Mar, 2018 Left leg pain M79.605 [id number] [place] [address] 14 Mar, 2018 Arrhythmia as indication for cardiac pacemaker replacement I49.9 ; HTN (hypertension) I10 ; Primary insomnia F51.01 ; Chronic pain syndrome G89.4 ; 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 and Myocarditis, unspecified chronicity, 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 [id number] [place] [address] 06 Mar, 2018 Post-traumatic stress disorder, unspecified F43.10 ; Major depressive disorder, recurrent, moderate F33.1 and Problems related to release from custodial Z65.2 [place] [facility] [id number] [place] [address] Feb, Open-angle glaucoma of both eyes H40.10X0 [place] [id number] [place] [address] Feb, Post-traumatic stress disorder, chronic F43.12 ; Anxiety F41.9 ; Problems related to release from custodial Z65.2 and BMI 40.0-44.9, adult Z68.41 [place] [facility] [id number] [place] [address] Feb, Left leg pain M79.605 [place] [facility] [id number] [place] [address] Feb, [place] [facility] [id number] [place] [address] Jan, Left leg pain M79.605 [place] [facility] [id number] [place] [address] Jan, [place] [facility] [id number] [place] [address] Jan, Post-traumatic stress disorder, unspecified F43.10 ; Major depressive disorder, recurrent, moderate F33.1 and Problems related to release from custodial Z65.2 [place] [facility] [id number] [place] [address] Jan, Insomnia disorder with non-sleep disorder mental comorbidity G47.00 ; Post-traumatic stress disorder, chronic F43.12 ; Anxiety F41.9 and BMI 40.0- 44.9, adult Z68.41 [id number] [place] [address] 14 Jan, 2018 Encounter for long-term (current) use of other medications Z79.899 [place] [id number] [place] [address] Jan, [place] [id number] [place] [address] Dec, Left leg pain M79.605 [facility] [id number] [place] [address] Dec, Encounter for long-term (current) use of other medications Z79.899 [facility] [id number] [place] [address] Dec, [facility] [id number] [place] [address] Dec, Tooth pain K08.89 ; Active dental caries K02.9 and BMI 40.0-44.9, adult Z68.41 [facility] [id number] [place] [address] 15 Dec, 2017 Acute bronchitis J20.9 and BMI 40.0-44.9, adult Z68.41 [facility] [id number] [place] [address] Dec, [facility] [id number] [place] [address] Dec, [facility] [id number] [place] [address] Dec, [facility] [id number] [place] [address] Dec, [facility] [id number] [place] [address] Nov, [facility] [id number] [place] [address] Nov, Left leg pain M79.605 [address] [address] [facility] [id number] [id number] Nov, [facility] [id number] [place] [address] Nov, Encounter for long-term (current) use of other medications Z79.899 [facility] [id number] [place] [address] Nov, [facility] [id number] [place] [address] Nov, Left leg pain M79.605 [facility] [id number] [place] [id number] 28 Oct, 2017 Dental examination Z01.20 [facility] [address] [address] Oct, Insomnia disorder with non-sleep disorder mental comorbidity G47.00 [place] [address] [address] Oct, Post-traumatic stress disorder, chronic F43.12 ; Insomnia disorder with non-sleep disorder mental comorbidity G47.00 and BMI 40.0-44.9, adult Z68.41 [place] [address] [address] Oct, [facility] [id number] [place] [address] 18 Oct, 2017 Insect bite (nonvenomous), left lower leg, initial encounter S80.862A ; Bitten or stung by nonvenomous insect and other nonvenomous arthropods, initial encounter W57.XXXA and BMI 40.0-44.9, adult Z68.41 [facility] [id number] [place] [address] Oct, Left leg pain M79.605 [facility] [id number] [place] [address] 04 Oct, 2017 Post-traumatic stress disorder, unspecified F43.10 ; Major depressive disorder, recurrent, moderate F33.1 and Problems related to release from custodial Z65.2 [facility] [id number] [place] [address] Sep, Arrhythmia as indication for cardiac pacemaker replacement I49.9 [place] [address] [place] [address] Sep, [facility] [id number] [place] [address] Sep, HTN (hypertension) I10 [facility] [id number] [place] [address] 17 Sep, 2017 [facility] [address] [address] 16 Sep, 2017 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 ; Chronic pain G89.29 ; Supraventricular tachycardia I47.1 and Body mass index (BMI) of 40.0-44.9 in adult Z68.41 [facility] [address] [address] 15 Sep, 2017 [facility] [address] [address] Sep, Sarcoidosis D86.9 [facility] [address] [address] Sep, Sarcoidosis D86.9 [facility] [address] [address] Sep, [facility] [id number] [place] [address] Sep, [facility] [id number] [place] [address] Sep, [facility] [id number] [place] [address] Sep, [facility] [id number] [place] [address] Sep, Left leg pain M79.605 [facility] [id number] [place] [address] 07 Sep, 2017 HTN (hypertension) I10 [facility] [id number] [place] [address] Sep, [facility] [address], [place] [address] Sep, Post-traumatic stress disorder, unspecified F43.10 ; Major depressive disorder, recurrent, moderate F33.1 and Problems related to release from custodial Z65.2 [facility] [address] [address] Sep, [facility] [id number] [place] [address] Aug, [facility] [id number] [place] [address] Aug, Sarcoidosis D86.9 [facility] [id number] [place] [address] Aug, Sarcoidosis D86.9 [facility] [id number] [place] [address] Aug, HTN (hypertension) I10 [place] [id number] [place] [address] Aug, Post-traumatic stress disorder, unspecified F43.10 ; Major depressive disorder, recurrent, moderate F33.1 and Problems related to release from custodial Z65.2 [place] [address] [address] Aug, [place] [id number] [place] [address] Aug, Left leg pain M79.605 [facility] [address], [place] [address] Jul, Post-traumatic stress disorder, chronic F43.12 ; Anxiety F41.9 ; Problems related to release from custodial Z65.2 and BMI 40.0-44.9, adult Z68.41 [place] [id number] [place] [address] Jul, HTN (hypertension) I10 ; Body mass index (BMI) of 40.0-44.9 in adult Z68.41 ; Acute swimmer''s ear of both sides H60.333 and Chronic pain G89.29 [facility] [id number] [place] [address] 19 Jul, 2017 Glaucoma H40.9 [facility] [id number] [place] [address] 14 Jul, 2017 [facility] [id number] [place] [address] 13 Jul, 2017 Sarcoidosis D86.9 [place] [address] [address] 12 Jul, 2017 Left leg pain M79.605 [place] [id number] [place] [address] Jul, Sarcoidosis D86.9 [facility] [id number] [place] [address] Jul, Post-traumatic stress disorder, unspecified F43.10 ; Major depressive disorder, recurrent, moderate F33.1 and Problems related to release from custodial Z65.2 [facility] [id number] [place] [id number] June, [facility] [id number] [place] [phone] 30 Jun, 2017 Sore throat J02.9 and BMI 40.0-44.9, adult Z68.41 [facility] [id number] [place] [id number] June, [facility] [address] [address] June, [facility] [id number] [place] [phone] June, [facility] [address] [address] June, Left leg pain M79.605 [facility] [id number] [address] June, Sarcoidosis D86.9 [facility] [id number] [address] June, [facility] [id number] [place] [id number] June, [facility] [id number] [place] [phone] June, Left leg pain M79.605 [facility] [id number] [place] [phone] May, [facility] [id number] [place] [phone] May, [facility] [id number] [place] [phone] May, [facility] [id number] [address] May, Left leg pain M79.605 [facility] [id number] [place] [address] May, Post-traumatic stress disorder, unspecified F43.10 ; Major depressive disorder, recurrent, moderate F33.1 and Problems related to release from custodial Z65.2 [facility] [id number] [address] May, Chronic pain G89.29 ; Anxiety F41.9 ; Chest pain, unspecified type R07.9 and BMI 40.0-44.9, adult Z68.41 [facility] [id number] [address] Apr, [facility] [id number] [place] [id number] Apr, Left leg pain M79.605 [facility] [id number] [place] [address] 27 Apr, 2017 Post-traumatic stress disorder, unspecified F43.10 ; Problems related to release from custodial Z65.2 ; Anxiety F41.9 and BMI 40.0-44.9, adult Z68.41 [facility] [id number] [place] [address] Apr, [facility] [id number] [place] [address] Apr, Left leg pain M79.605 [place] [address] [address] 13 Apr, 2017 Post-traumatic stress disorder, unspecified F43.10 ; Major depressive disorder, recurrent, moderate F33.1 and Problems related to release from custodial Z65.2 [place] [id number] [place] [address] 12 Apr, 2017 [facility] [id number] [place] [address] Apr, Chronic pain G89.29 ; 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 ; Morbid (severe) obesity due to excess calories E66.01 ; Anxiety F41.9 and BMI 40.0-44.9, adult Z68.41 [facility] [id number] [place] [address] 10 Apr, 2017 Sore throat J02.9 and BMI 40.0-44.9, adult Z68.41 [facility] [id number] [place] [address] 02 Apr, 2017 Left leg pain M79.605 [facility] [id number] [place] [id number] Mar, Dental examination Z01.20 [place] [id number] [place] [address] Mar, [facility] [id number] [place] [address] Mar, Cough R05 ; Viral gastroenteritis A08.4 and BMI 40.0-44.9, adult Z68.41 [facility] [id number] [place] [address] Mar, Left leg pain M79.605 [place] [address] [address] Mar, Post-traumatic stress disorder, unspecified F43.10 ; Major depressive disorder, recurrent, moderate F33.1 and Problems related to release from custodial Z65.2 [place] [address] [address] Feb, Left leg pain M79.605 [place] [facility] [id number] [place] [address] Feb, [place] [id number] [place] [address] Feb, BMI 40.0-44.9, adult Z68.41 ; Chronic pain syndrome G89.4 ; Migraine without aura and without status migrainosus, not intractable G43.009 ; Mitral valve prolapse I34.1 and 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 [facility] [id number] [place] [address] Feb, Post-traumatic stress disorder, chronic F43.12 ; Anxiety F41.9 ; Problems related to release from custodial Z65.2 and BMI 40.0-44.9, adult Z68.41 [place] [id number] [place] [address] Feb, Post-traumatic stress disorder, unspecified F43.10 ; Major depressive disorder, recurrent, moderate F33.1 and Problems related to release from custodial Z65.2 [place] [id number] [place] [address] Feb, Left leg pain M79.605 [facility] [id number] [place] [address] Jan, Post-traumatic stress disorder, unspecified F43.10 ; Major depressive disorder, recurrent, moderate F33.1 and Problems related to release from custodial Z65.2 [facility] [id number] [place] [address] Jan, [facility] [id number] [place] [address] Jan, [facility] [id number] [place] [address] Jan, Anxiety F41.9 [facility] [id number] [place] [address] Jan, Left leg pain M79.605 [facility] [id number] [place] [address] Dec, Left leg pain M79.605 [facility] [id number] [place] [address] Dec, [facility] [id number] [place] [address] 15 Dec, 2016 Post-traumatic stress disorder, unspecified F43.10 ; Major depressive disorder, recurrent, moderate F33.1 and Problems related to release from custodial Z65.2 [facility] [id number] [place] [address] 31 Nov, 2016 Chronic pain G89.29 and Anxiety F41.9 [facility] [id number] [place] [address] 24 Nov, 2016 Chronic pain G89.29 and Anxiety F41.9 [facility] [id number] [place] [address] 16 Nov, 2016 Post-traumatic stress disorder, unspecified F43.10 ; Major depressive disorder, recurrent, moderate F33.1 and Problems related to release from custodial Z65.2 [facility] [id number] [place] [address] 09 Nov, 2016 Other abnormal findings in specimens from other organs, systems and tissues R89.8 ; Other male erectile dysfunction N52.8 ; Body mass index (BMI) of 40.0-44.9 in adult Z68.41 and Morbid (severe) obesity due to excess calories E66.01 [facility] [address] [address] Nov, Post-traumatic stress disorder, unspecified F43.10 ; Major depressive disorder, recurrent, moderate F33.1 and Problems related to release from custodial Z65.2 [facility] [address] [id number] Oct, Dental examination Z01.20 [facility] [address] [address] Oct, [facility] [address] [address] Oct, Encounter for immunization Z23 [place] [address] [address] Oct, Chronic pain G89.29 ; Anxiety F41.9 ; Arrhythmia as indication for cardiac pacemaker replacement I49.9 and Glaucoma H40.9 [facility] [id number] [place] [address] Oct, Anxiety F41.9 ; Post-traumatic stress disorder, chronic F43.12 and Problems related to release from custodial Z65.2 [facility] [id number] [place] [address] Oct, Post-traumatic stress disorder, unspecified F43.10 ; Major depressive disorder, recurrent, moderate F33.1 and Problems related to release from custodial Z65.2 [facility] [id number] [place] [address] Sep, Chronic pain G89.29 and Anxiety F41.9 [place] [address] [address] Sep, Post-traumatic stress disorder, unspecified F43.10 ; Major depressive disorder, recurrent, moderate F33.1 and Problems related to release from custodial Z65.2 [place] [id number] [place] [address] Sep, Post-traumatic stress disorder, unspecified F43.10 ; Major depressive disorder, recurrent, moderate F33.1 and Problems related to release from custodial Z65.2 [place] [id number] [place] [address] Sep, Chronic pain G89.29 [place] [id number] [place] [address] Aug, Dental caries, unspecified K02.9 [place] [id number] [place] [address] Aug, Sleep apnea, obstructive G47.33 ; Obesity E66.9 ; Chronic pain G89.29 ; HTN (hypertension) I10 ; Major depressive disorder, recurrent, moderate F33.1 ; Anxiety F41.9 ; Chronic tension headaches G44.229 ; Mitral valve prolapse I34.1 ; Arrhythmia as indication for cardiac pacemaker replacement I49.9 ; Dental caries, unspecified K02.9 ; Primary insomnia F51.01 and Hyperlipidemia E78.5 [place] [address] [address] Aug, Post-traumatic stress disorder, unspecified F43.10 ; Major depressive disorder, recurrent, moderate F33.1 and Problems related to release from custodial Z65.2 [place] [id number] [place] [address] Aug, Dental examination Z01.20 [facility] [id number] [id number] Aug, Dental examination Z01.20 [facility] [address] [place] [address] Aug, Post-traumatic stress disorder, unspecified F43.10 ; Major depressive disorder, recurrent, moderate F33.1 and Problems related to release from custodial Z65.2 [place] [id number] [place] [address] Aug, Chronic pain G89.29 and Primary insomnia F51.01 [place] [id number] [place] [address] Jul, [place] [id number] [place] [address] Jul, [place] [id number] [place] [address] Jul, Nausea R11.0 [place] [id number] [place] [address] Jul, Arrhythmia as indication for cardiac pacemaker replacement I49.9 [place] [id number] [place] [address] Jul, Post-traumatic stress disorder, unspecified F43.10 ; Major depressive disorder, recurrent, moderate F33.1 and Problems related to release from custodial Z65.2 [place] [id number] [place] [address] 09 Jul, 2016 Anxiety F41.9 [place] [id number] [place] [address] 08 Jul, 2016 Chronic pain G89.29 [place] [id number] [place] [address] Jul, Sleep apnea, obstructive G47.33 ; Hyperlipidemia E78.5 ; Chronic pain G89.29 ; Blindness and low vision H54.10 ; Major depressive disorder, recurrent, moderate F33.1 ; Anxiety F41.9 ; Mitral valve prolapse I34.1 ; Arrhythmia as indication for cardiac pacemaker replacement I49.9 ; Primary insomnia F51.01 ; Bilateral headaches R51 and Environmental allergies Z91.09 [place] [id number] [address] Jul, Post-traumatic stress disorder, unspecified F43.10 ; Major depressive disorder, recurrent, moderate F33.1 and Problems related to release from custodial Z65.2 [place] [id number] [place] [address] June, Post-traumatic stress disorder, chronic F43.12 ; Anxiety F41.9 ; Problems related to release from custodial Z65.2 ; Sleep apnea, obstructive G47.33 and Primary insomnia F51.01 [place] [id number] [place] [address] June, [place] [id number] [place] [address] June, [place] [id number] [place] [address] June, [place] [id number] [place] [address] June, Chronic pain G89.29 [place] [id number] [place] [address] June, Chronic pain G89.29 [place] [id number] [place] [address] June, Lipoma of left lower extremity D17.24 ; Open wound T14.8 and Swelling of left lower extremity M79.89 [place] [id number] [place] [address] June, Post-traumatic stress disorder, unspecified F43.10 ; Major depressive disorder, recurrent, moderate F33.1 and Problems related to release from custodial Z65.2 [facility] [address] [address] May, Lipoma of left lower extremity D17.24 ; Major depressive disorder, recurrent, moderate F33.1 ; Sleep apnea, obstructive G47.33 ; Hyperlipidemia E78.5 ; Obesity E66.9 ; HTN (hypertension) I10 ; Glaucoma H40.9 ; CAD (coronary artery disease) I25.10 ; Chronic tension headaches G44.229 ; Chronic pain G89.29 ; Anxiety F41.9 ; Nausea R11.0 and Primary insomnia F51.01 [place] [id number] [place] [address] May, [place] [address] [address] May, Chronic pain G89.[address] [address] May, [place] [id number] [place] [address] 31 Apr, 2016 Post-traumatic stress disorder, unspecified F43.10 ; Major depressive disorder, recurrent, moderate F33.1 and Problems related to release from custodial Z65.2 [place] [id number] [place] [address] Apr, Primary insomnia F51.01 ; Post-traumatic stress disorder, chronic F43.12 and Problems related to release from custodial Z65.2 [place] [id number] [place] [address] 17 Apr, 2016 Post-traumatic stress disorder, unspecified F43.10 ; Major depressive disorder, recurrent, moderate F33.1 and Problems related to release from custodial Z65.2 [place] [id number] [place] [address] Apr, [address] [address] Apr, Sleep apnea, obstructive G47.33 ; Chronic pain G89.29 ; HTN (hypertension) I10 ; Mitral valve prolapse I34.1 ; Shoulder pain, left M25.512 ; Arrhythmia as indication for cardiac pacemaker replacement I49.9 ; Glaucoma H40.9 ; Bilateral headaches R51 ; Environmental allergies Z91.09 ; Primary insomnia F51.01 and Nausea R11.0 [place] [id number] [place] [address] 15 Apr, 2016 [place] [id number] [place] [address] 15 Apr, 2016 [place] [address] [place] [address] [id number] Apr, Post-traumatic stress disorder, unspecified F43.10 ; Major depressive disorder, recurrent, moderate F33.1 and Problems related to release from custodial Z65.2 [place] [address] [place] [address] 07 Apr, 2016 HTN (hypertension) I10 [place] [address] [address] Apr, HTN (hypertension) I10 [place] [address] [address] 14 Mar, 2016 Chronic pain G89.29 ; Primary insomnia F51.01 and Problems related to release from custodial Z65.2 [place] [id number] [place] [address] 07 Mar, 2016 Post-traumatic stress disorder, unspecified F43.10 ; Major depressive disorder, recurrent, moderate F33.1 and Problems related to release from custodial Z65.2 [place] [id number] [place] [address] Feb, Post-traumatic stress disorder, unspecified F43.10 ; Major depressive disorder, recurrent, moderate F33.1 and Problems related to release from custodial Z65.2 [place] [id number] [place] [address] Feb, Chronic tension headaches G44.229 [place] [id number] [place] [address] Feb, Sleep apnea, obstructive G47.33 ; Obesity [...] pacemaker replacement I49.9 and Primary insomnia F51.01 [place] [address] [address] 17 Feb, 2016 Post-traumatic stress disorder, unspecified F43.10 and Chronic pain G89.29 [place] [address] [address] Feb, [facility] [address] [id number] Feb, Dental caries K02.[address] [address] 06 Feb, 2016 [place] [address] [address] Feb, Post-traumatic stress disorder, unspecified F43.10 ; Major depressive disorder, recurrent, moderate F33.1 and Problems related to release from custodial Z65.2 [place] [id number] [place] [address] Jan, Sleep apnea, obstructive G47.33 and Chronic pain G89.29 [place] [id number] [place] [address] Jan, [place] [address] [address] 14 Jan, 2016 Dental examination Z01.20 [place] [id number] [place] [address] 09 Jan, [address] [address] Jan, [facility] [address] [address] Dec, Post-traumatic stress disorder, unspecified F43.10 ; Major depressive disorder, recurrent, moderate F33.1 and Problems related to release from custodial Z65.2 [place] [id number] [address] Dec, Encounter for immunization Z23 ; Problems related to release from custodial Z65.2 ; Sleep apnea, obstructive G47.33 and Post-traumatic stress disorder, chronic F43.12 [place] [id number] [place] [address] Dec, Sleep apnea, obstructive G47.33 ; Hyperlipidemia E78.5 ; Chronic pain G89.29 ; Glaucoma H40.9 ; HTN (hypertension) I10 ; Post-traumatic stress disorder, unspecified F43.10 ; Anxiety F41.9 ; Chronic tension headaches G44.229 ; Mitral valve prolapse I34.1 and CAD (coronary artery disease) I25.10 [place] [address] [place] [address] Dec, Post-traumatic stress disorder, unspecified F43.10 ; Major depressive disorder, recurrent, moderate F33.1 and Problems related to release from custodial Z65.2 [place] [address], [place] [address] Nov, Chronic pain G89.29 [place] [id number] [place] [address] Nov, Post-traumatic stress disorder, unspecified F43.10 ; Major depressive disorder, recurrent, moderate F33.1 and Problems related to release from custodial Z65.2 [place] [id number] [place] [address] Oct, [place] [address] [address] Oct, [place] [address] [place] [id number] [place] [address] 16 Oct, 2015 Post-traumatic stress disorder, unspecified F43.10 ; Major depressive disorder, recurrent, moderate F33.1 and Problems related to release from custodial Z65.2 [facility] [id number] [place] [address] 08 Oct, 2015 [facility] [id number] [place] [address] 07 Oct, 2015 Environmental allergies Z91.09 ; Cough R05 and Open-angle glaucoma of both eyes H40.10X0 [place] [id number] [place] [address] Sep, [place] [id number] [place] [address] Sep, Post-traumatic stress disorder, unspecified F43.10 ; Major depressive disorder, recurrent, moderate F33.1 and Problems related to release from custodial Z65.2 [place] [address] [place] [address] 16 Sep, 2015 Chronic pain G89.29 [place] [id number] [place] [address] Sep, Pain in left shoulder M25.512 ; Pain in right shoulder M25.511 and Other chronic pain G89.29 [place] [id number] [place] [address] Sep, [facility] [id number] [place] [address] Sep, [facility] [id number] [place] [address] Sep, [facility] [id number] [place] [id number] Aug, Dental examination Z01.20 [facility] [id number] [place] [address] Aug, Post-traumatic stress disorder, unspecified F43.10 ; Open-angle glaucoma of both eyes H40.10X0 and Problems related to release from custodial Z65.2 [facility] [id number] [place] [address] Aug, [facility] [id number] [place] [address] Aug, Sleep apnea, obstructive G47.33 ; Obesity E66.9 ; Hyperlipidemia E78.5 ; Bilateral headaches R51 ; HTN (hypertension) I10 ; Post-traumatic stress disorder, unspecified F43.10 ; Anxiety F41.9 ; Neuropathy G62.9 ; Glaucoma H40.9 and Chronic pain G89.29 [facility] [id number] [place] [id number] Aug, Encounter for dental examination Z01.20 [facility] [id number] [place] [address] Aug, Post-traumatic stress disorder, unspecified F43.10 ; Major depressive disorder, recurrent, moderate F33.1 and Problems related to release from custodial Z65.2 [facility] [id number] [place] [address] Aug, [facility] [id number] [place] [address] Jul, [facility] [id number] [place] [address] Jul, Post-traumatic stress disorder, unspecified F43.10 and Major depressive disorder, recurrent, moderate F33.1 [facility] [id number] [place] [address] Jul, [facility] [id number] [place] [address] Jul, [facility] [id number] [place] [address] Jul, Chronic pain G89.29 [facility] [address], [place] [address] June, Post-traumatic stress disorder, unspecified F43.10 and Major depressive disorder, recurrent, moderate F33.1 [facility] [address], [place] [address] June, [facility] [id number] [place] [address] June, Chronic pain G89.29 [facility] [id number] [place] [address] June, Post-traumatic stress disorder, unspecified F43.10 and Major depressive disorder, recurrent, moderate F33.1 [place] [id number] [place] [address] May, Post-traumatic stress disorder, unspecified F43.10 and Major depressive disorder, recurrent, moderate F33.1 [place] [id number] [place] [address] May, [facility] [id number] [place] [address] 08 May, 2015 [facility] [id number] [place] [address] May, [place] [id number] [place] [address] Apr, [facility] [id number] [place] [address] Apr, Post-traumatic stress disorder, unspecified F43.10 and Sleep apnea, obstructive G47.33 [facility] [id number] [place] [address] Apr, [facility] [id number] [place] [id number] Apr, Shoulder pain, left M25.512 [facility] [id number] [place] [id number] Apr, Post-traumatic stress disorder, unspecified F43.10 and Major depressive disorder, recurrent, moderate F33.1 [place] [id number] [place] [id number] Apr, [facility] [id number] [place] [id number] Apr, [facility] [id number] [place] [phone] Apr, [place] [id number] [place] [address] [id number] Apr, Left shoulder pain M25.512 [place] [address] [place] [id number] [place] [address] Mar, [place] [address] [address] Mar, [place] [address] [id number] [place] [address] Mar, [place] [id number] [place] [address] Mar, Sleep apnea, obstructive G47.33 ; Obesity E66.9 ; Chronic pain G89.29 ; Hyperlipidemia E78.5 ; HTN (hypertension) I10 ; Blindness and low vision H54.10 ; Major depressive disorder, recurrent, moderate F33.1 and Anxiety F41.9 [place] [id number] [place] [address] Mar, [place] [id number] [place] [address] Mar, Post-traumatic stress disorder, unspecified F43.10 and Major depressive disorder, recurrent, moderate F33.1 [place] [id number] [place] [phone] 08 Mar, 2015 [place] [id number] [address] 04 Mar, 2015 HTN (hypertension) I10 ; Blindness and low vision H54.10 ; Obesity E66.9 ; Hyperlipidemia E78.5 ; Glaucoma H40.9 ; Chronic pain G89.29 and CAD (coronary artery disease) I25.10 [place] [id number] [place] [address] Feb, [place] [id number] [place] [address] Feb, Post-traumatic stress disorder, unspecified F43.10 ; Obesity E66.9 ; Sleep apnea, obstructive G47.33 and Open-angle glaucoma of both eyes H40.10X0 [place] [id number] [place] [address] Feb, Post-traumatic stress disorder, unspecified F43.10 and Major depressive disorder, recurrent, moderate F33.1 [place] [id number] [place] [address] Feb, [place] [id number] [place] [address] Feb, [place] [id number] [place] [address] Feb, HTN (hypertension) I10 ; Post-traumatic stress disorder, unspecified F43.10 ; Blindness and low vision H54.10 ; Obesity E66.9 ; Hyperlipidemia E78.5 ; Chronic pain G89.29 ; Glaucoma H40.9 ; Mitral valve prolapse I34.1 and Bilateral headaches R51 [place] [id number] [place] [address] Feb, [place] [id number] [place] [address] Feb, Post-traumatic stress disorder, unspecified F43.10 and Major depressive disorder, recurrent, moderate F33.1 [place] [id number] [place] [address] Feb, [facility] [id number] [place] [phone] Feb, [facility] [id number] [place] [address] Jan, [place] [id number] [place] [address] Jan, [facility] [id number] [place] [address] Jan, Obesity E66.9 ; HTN (hypertension) I10 ; Blindness and low vision H54.10 ; Major depressive disorder, recurrent, moderate F33.1 ; Glaucoma H40.9 ; Hyperlipidemia E78.5 ; Sleep apnea, obstructive G47.33 ; Chronic pain G89.29 ; Anxiety F41.9 ; Chronic tension headaches G44.229 and Cough R05 [place] [id number] [place] [address] Jan, [place] [id number] [place] [address] Jan, [place] [id number] [place] [address] Jan, Post-traumatic stress disorder, unspecified F43.10 ; Obesity E66.9 ; Sleep apnea, obstructive G47.33 and Open-angle glaucoma of both eyes H40.10X0 [place] [id number] [place] [address] Jan, [place] [id number] [place] [address] Jan, Post-traumatic stress disorder, unspecified F43.10 and Major depressive disorder, recurrent, moderate F33.1 [place] [id number] [place] [address] Dec, [place] [address] [address] Dec, Sleep apnea, obstructive G47.33 ; Obesity E66.9 ; Hyperlipidemia E78.5 ; Glaucoma H40.9 ; Chronic pain G89.29 ; HTN (hypertension) I10 ; Blindness and low vision H54.10 ; Anxiety F41.9 and CAD (coronary artery disease) I25.10 [facility] [address] [place] [phone] Nov, [facility] [address] [address] Nov, [facility] [address] [place] [address] Nov, [facility] [address] [place] [address] Nov, [address] [address] Nov, [facility] [address] [place] [address] Nov, Encounter for immunization Z23 ; Sleep apnea, obstructive G47.33 ; Obesity E66.9 ; Hyperlipidemia E78.5 ; Glaucoma H40.9 ; Chronic pain G89.29 ; Anxiety F41.9 ; Chronic tension headaches G44.229 and HTN (hypertension) I10 [facility] [address] [place] [id number] [place] [address] Nov, [facility] [address] [place] [phone] Nov, [facility] [address] [place] [address] Nov, Dizziness R42 [facility] [address] [place] [phone] Nov, [facility] [address] [place] [phone] Oct, [facility] [id number] [place] [address] Oct, [place] [address] [address] Oct, [facility] [id number] [place] [address] Oct, [place] [address] [address] Oct, Dizziness 780.4 ; Essential hypertension 401.9 ; Obesity 278.00 ; Hyperlipidemia 272.4 ; Chronic pain 338.29 ; Glaucoma 365.9 and Anxiety 300.00 [place] [address] [address] Oct, Essential hypertension 401.9 ; Hyperlipidemia 272.4 ; Glaucoma 365.9 ; Obesity 278.00 ; Chronic pain 338.29 and Allergy to insects V15.06 [place] [id number] [place] [address] Sep, [place] [address] [place] [address] [id number] [place] [address] Sep, [place] [address] [id number] [place] [phone] Sep, [place] [address] [place] [address] [id number] [place] [address] Sep, [place] [address] [place] [address] [id number] [place] [address] Aug, Essential hypertension 401.9 ; Obesity 278.00 ; Hyperlipidemia 272.4 ; Glaucoma 365.9 ; Lipoma 214.9 ; Mitral valve prolapse 424.0 ; Angina at rest 413.9 ; Lymphedema 457.1 and Chronic pain 338.29 IMMUNIZATIONS No Known Immunizations SOCIAL HISTORY Never Assessed REASON FOR VISIT Blood pressure check PLAN OF CARE VITAL SIGNS Height 67 in 2018-04-22 Blood pressure systolic 148 mmHg 2018-04-22 Blood pressure diastolic 96 mmHg 2018-04-22 MEDICATIONS Unknown Medications RESULTS No Results PROCEDURES [...]
--- OUTSIDE RECORDS SUMMARY | 2018-08-30 01:10 | XMS REPORT | Continuity of Care Document ---
Author Organization Unknown Address Unknown Allergies Active Description Code Type Severity Reaction Onset Reported/Identified Relationship to Patient Clinical Status Yes ASPIRIN UNKNOWN GI PROBLEMS - NAUSEA Yes PENICILLINS UNKNOWN DERMATOLOGICAL - BALA Yes WASP VENOM UNKNOWN UNKNOWN Yes XALATAN UNKNOWN UNKNOWN Yes aspirin [id number] Drug Allergy Unknown N/A 07/19/2014 Yes Penicillins [id number] Drug Allergy Unknown N/A 07/19/2014 Yes aspirin [id number] Drug Allergy Unknown N/A 07/19/2014 Yes Penicillins [id number] Drug Allergy Unknown N/A 07/19/2014 Yes aspirin [id number] Drug Allergy Moderate STOMACH ACHE 07/26/2018 Yes Penicillins [id number] Drug Allergy Moderate N/V 07/26/2018 Yes adhesive tape [id number] Drug Allergy Unknown N/A 07/26/2018 Yes latanoprost [id number] Drug Allergy Unknown N/A 07/26/2018 Yes lisinopril [id number] Drug Allergy Unknown N/A 07/26/2018 Medications Medication [...] DO Ot 785.0 08/04/2014 CHAITANYA RODRIGUEZDORE O PHOTOGRAPHY PROFESSOR Ot 272.4 08/04/2014 NWDONNWDanis ISIDORE O PHOTOGRAPHY PROFESSOR Ot 278.01 08/04/2014 CHAITANYA RODRIGUEZDORE O PHOTOGRAPHY PROFESSOR Ot 401.9 08/04/2014 NWAGWU, ISIDORE O PHOTOGRAPHY PROFESSOR Ot 424.0 08/04/2014 NWAGWU, ISIDORE O PHOTOGRAPHY PROFESSOR Ot 785.0 08/18/2014 FELIBERTO MARTINEZ, [place] L Ot 401.9 08/18/2014 FELIBERTO MARTINEZ, [place] L Ot 682.6 08/18/2014 FELIBERTO MARTINEZ, [place] L Ot 729.5 08/18/2014 FELIBERTO MARTINEZ, [place] L Ot 998.13 08/18/2014 FELIBERTO MARTINEZ, [place] L Ot V58.69 08/24/2014 GELLENDER DO, CARYN A Ot 272.4 08/24/2014 GELLENDER DO, CARYN A Ot 401.9 08/24/2014 GELLENDER DO, CARYN A Ot 785.0 08/24/2014 NWAGWU, ISIDORE O PHOTOGRAPHY PROFESSOR Ot 272.4 08/24/2014 NWAGWU, ISIDORE O PHOTOGRAPHY PROFESSOR Ot 278.01 08/24/2014 NWAGWU, ISIDORE O PHOTOGRAPHY PROFESSOR Ot 401.9 08/24/2014 NWAGWU, ISIDORE O PHOTOGRAPHY PROFESSOR Ot 424.0 08/24/2014 NWAGWU, ISIDORE O PHOTOGRAPHY PROFESSOR Ot 785.0 08/24/2014 PHAM BLACKMON PHOTOGRAPHY PROFESSOR Ot 338.18 08/24/2014 PHAM BLACKMON PHOTOGRAPHY PROFESSOR Ot 729.5 08/31/2014 PHAM BLACKMON PHOTOGRAPHY PROFESSOR Ot 305.90 08/31/2014 PHAM BLACKMON PHOTOGRAPHY PROFESSOR Ot 338.18 08/31/2014 PHAM BLACKMON PHOTOGRAPHY PROFESSOR Ot 729.5 08/31/2014 PHAM BLACKMON PHOTOGRAPHY PROFESSOR Ot V65.2 10/11/2014 GELLENDER DO, CARYN A Ot 272.4 10/11/2014 GELLENDER DO, CARYN A Ot 401.9 10/11/2014 GELLENDER DO, CARYN A Ot 785.0 10/11/2014 NWAGWU, ISIDORE O PHOTOGRAPHY PROFESSOR Ot 272.4 10/11/2014 NWAGWU, ISIDORE O PHOTOGRAPHY PROFESSOR Ot 278.01 10/11/2014 NWAGWU, ISIDORE O PHOTOGRAPHY PROFESSOR Ot 401.9 10/11/2014 NWAGWU, ISIDORE O PHOTOGRAPHY PROFESSOR Ot 424.0 10/11/2014 NWAGWU, ISIDORE O PHOTOGRAPHY PROFESSOR Ot 785.0 10/22/2014 ARTESIA GENIA RICHTER Ot 782.2 10/22/2014 MONTANEZ GENIA [...] FACC, ALI FACP CCDS Ot Z79.899 OTHER GROUP DIRECTOR EXPERIENCE (CURRENT) DRUG THERAPY 03/12/2015 SAJI BURNETT FACC, [...] Byrd Ot I25.10 ATHSCL HEART DISEASE OF [place] CORONARY 05/22/2015 VIVI BURNETT, FRANCISCO Byrd [...] MD Ot I25.10 ATHSCL HEART DISEASE OF [place] CORONARY 10/02/2015 FRANCISCO TRINIDAD MD Ot S43.431A SUPERIOR GLENOID LABRUM LESION OF RIGHT 10/02/2015 FRANCISCO TRINIDAD MD Ot Z79.899 OTHER RESIDENTIAL (CURRENT) DRUG THERAPY 10/02/2015 FRANCISCO TRINIDAD MD Ot Z87.891 PERSONAL HISTORY OF NICOTINE DEPENDENCE 10/03/2015 FRANCISCO TRINIDAD MD, Ot E78.5 HYPERLIPIDEMIA, UNSPECIFIED 10/03/2015 FRANCISCO TRINIDAD MD, Ot F32.9 MAJOR DEPRESSIVE DISORDER, SINGLE EPISOD 10/03/2015 FRANCISCO TRINIDAD MD, Ot I10 ESSENTIAL (PRIMARY) HYPERTENSION 10/03/2015 FRANCISCO TRINIDAD MD, Ot I25.10 ATHSCL HEART DISEASE OF [place] CORONARY 10/03/2015 FRANCISCO TRINIDAD MD, Ot S43.431A SUPERIOR GLENOID LABRUM LESION OF RIGHT 10/03/2015 FRANCISCO TRINIDAD MD, Ot Z79.899 OTHER GROUP DIRECTOR EXPERIENCE (CURRENT) DRUG THERAPY 10/03/2015 FRANCISCO TRINIDAD MD, Ot Z87.891 PERSONAL HISTORY OF NICOTINE DEPENDENCE 02/21/2016 Laurence APNG MD, Ot E78.5 HYPERLIPIDEMIA, UNSPECIFIED 02/21/2016 Laurence PANG MD Ot F17.210 NICOTINE DEPENDENCE, CIGARETTES, UNCOMPL 02/21/2016 Laurence PANG MD Ot I10 ESSENTIAL (PRIMARY) HYPERTENSION 02/21/2016 BIRD BURNETT, Laurence ARIZA Ot I48.91 UNSPECIFIED ATRIAL FIBRILLATION 02/21/2016 Laurence PANG MD, Ot I49.5 SICK SINUS SYNDROME 02/21/2016 Laurence PANG MD, Ot Z79.899 OTHER RESIDENTIAL (CURRENT) DRUG THERAPY 02/24/2016 Ot E78.5 HYPERLIPIDEMIA, [...] CCDS Ot R00.2 PALPITATIONS 05/07/2016 SAJI MD [facility], ALI FACP CCDS Ot Z72.0 TOBACCO USE 05/07/2016 SAJI FACC, ALI FACP CCDS Ot Z95.0 PRESENCE OF CARDIAC PACEMAKER 05/13/2016 SAJI BURNETT [facility], ALI FACP CCDS Ot G47.33 OBSTRUCTIVE SLEEP APNEA (ADULT) (PEDIATR 05/13/2016 SAJI MD [facility], ALI FACP CCDS Ot I10 ESSENTIAL (PRIMARY) HYPERTENSION 05/13/2016 SAJI BURNETT [facility], ALI FACP CCDS Ot I47.1 SUPRAVENTRICULAR TACHYCARDIA 05/13/2016 SAJI BURNETT [facility], ALI FACP CCDS Ot I49.5 SICK SINUS SYNDROME 05/13/2016 SAJI MD [facility], ALI FACP CCDS Ot R00.2 PALPITATIONS 05/13/2016 SAJI BURNETT [facility], ALI FACP CCDS Ot Z72.0 TOBACCO USE 05/13/2016 SAJI BURNETT [facility], ALI FACP CCDS Ot Z95.0 PRESENCE [...] FOLLOWING 06/19/2016 [place] GRIFFITH Ot Z79.899 OTHER RESIDENTIAL (CURRENT) DRUG THERAPY 06/19/2016 [place] GRIFFITH Ot [...] PRESENCE OF CARDIAC PACEMAKER 03/03/2017 KAYLA KOENIG RISK ASSESSOR Ot E66.01 MORBID (SEVERE) OBESITY DUE TO EXCESS CA 03/03/2017 KAYLA KOENIG RISK ASSESSOR Ot I10 ESSENTIAL (PRIMARY) HYPERTENSION 03/03/2017 KAYLA KOENIG RISK ASSESSOR Ot I47.1 SUPRAVENTRICULAR TACHYCARDIA 03/03/2017 KAYLA KOENIG RISK ASSESSOR Ot I47.2 VENTRICULAR TACHYCARDIA 03/03/2017 KAYLA KOENIG RISK ASSESSOR Ot I49.5 SICK SINUS SYNDROME 03/03/2017 KAYLA KOENIG RISK ASSESSOR Ot R00.2 PALPITATIONS 03/10/2017 DONTA RICH PHOTOGRAPHY PROFESSOR Ot I47.2 VENTRICULAR TACHYCARDIA 03/10/2017 DONTA RICH PHOTOGRAPHY PROFESSOR Ot I51.4 MYOCARDITIS, UNSPECIFIED 03/24/2017 DONTA RICH PHOTOGRAPHY PROFESSOR Ot I47.2 VENTRICULAR TACHYCARDIA 03/24/2017 DONTA RICH PHOTOGRAPHY PROFESSOR Ot I51.4 MYOCARDITIS, UNSPECIFIED 05/06/2017 Brown, Jarred [...] PRESENCE OF CARDIAC PACEMAKER 05/19/2017 KAYLA KOENIG RISK ASSESSOR Ot E66.01 MORBID (SEVERE) OBESITY DUE TO EXCESS CA 05/19/2017 JAMILAHKAYLA SORIANO RISK ASSESSOR Ot I10 ESSENTIAL (PRIMARY) HYPERTENSION 05/19/2017 KAYLA KOENIG RISK ASSESSOR Ot I47.1 SUPRAVENTRICULAR TACHYCARDIA 05/19/2017 KAYLA KOENIG RISK ASSESSOR Ot I47.2 VENTRICULAR TACHYCARDIA 05/19/2017 KAYLA KOENIG RISK ASSESSOR Ot I49.5 SICK SINUS SYNDROME 05/19/2017 KAYLA KOENIG RISK ASSESSOR Ot R00.2 PALPITATIONS 05/19/2017 DONTA RICH PHOTOGRAPHY PROFESSOR Ot I47.2 VENTRICULAR TACHYCARDIA 05/19/2017 DONTA RICH PHOTOGRAPHY PROFESSOR Ot I51.4 MYOCARDITIS, UNSPECIFIED 05/19/2017 JESUS BURNETT, [...] FACP CCDS Ot I47.2 VENTRICULAR TACHYCARDIA 07/08/2017 [facility] FAC, ALI FACP CCDS Ot Z72.0 TOBACCO USE 07/08/2017 SAJI MD FACC, ALI FACP CCDS Ot Z95.0 PRESENCE OF CARDIAC PACEMAKER 07/08/2017 [facility], [facility]I FACP CCDS Ot E66.8 OTHER OBESITY 07/08/2017 SAJI MD FAC, ALI FACP CCDS Ot G47.33 OBSTRUCTIVE SLEEP APNEA (ADULT) (PEDIATR 07/08/2017 SAJI BURNETT [facility], ALI FACP CCDS Ot I10 ESSENTIAL (PRIMARY) HYPERTENSION 07/08/2017 [facility], ALI FACP CCDS Ot I47.1 SUPRAVENTRICULAR TACHYCARDIA 07/08/2017 [facility], ALI FACP CCDS Ot I47.2 VENTRICULAR TACHYCARDIA 07/08/2017 [facility], ALI FACP CCDS Ot Z72.0 TOBACCO USE 07/08/2017 [facility], ALI FACP CCDS Ot Z95.0 PRESENCE OF CARDIAC PACEMAKER 07/08/2017 KAYLA KOENIG RISK ASSESSOR Ot E66.01 MORBID (SEVERE) OBESITY DUE TO EXCESS CA 07/08/2017 KAYLA KOENIG L RISK ASSESSOR Ot I10 ESSENTIAL (PRIMARY) HYPERTENSION 07/08/2017 KAYLA KOENIG RISK ASSESSOR Ot I47.1 SUPRAVENTRICULAR TACHYCARDIA 07/08/2017 KAYLA KOENIG L RISK ASSESSOR Ot I47.2 VENTRICULAR TACHYCARDIA 07/08/2017 KAYLA KOENIG L RISK ASSESSOR Ot I49.5 SICK SINUS SYNDROME 07/08/2017 KAYLA KOENIG RISK ASSESSOR Ot R00.2 PALPITATIONS 07/08/2017 HILARIOACEDONTA C PHOTOGRAPHY PROFESSOR Ot I47.2 VENTRICULAR TACHYCARDIA 07/08/2017 DONTA RICH PHOTOGRAPHY PROFESSOR Ot I51.4 MYOCARDITIS, UNSPECIFIED 07/08/2017 JESUS BURNETT, PAMELA Negron Ot R05 COUGH 07/08/2017 JESUS BURNETT, PAMEAL Negron Ot R59.1 GENERALIZED ENLARGED LYMPH NODES [...] OTHER DISEASES OF TH 02/04/2018 PHAM BLACKMON PHOTOGRAPHY PROFESSOR Ot Z87.891 PERSONAL HISTORY OF NICOTINE DEPENDENCE 02/04/2018 PHAM BLACKMON PHOTOGRAPHY PROFESSOR Ot Z88.0 ALLERGY STATUS TO PENICILLIN 02/04/2018 PHAM BLACKMON PHOTOGRAPHY PROFESSOR Ot Z88.6 ALLERGY STATUS TO ANALGESIC AGENT STATUS 02/04/2018 PHAM BLACKMON PHOTOGRAPHY PROFESSOR Ot Z92.21 PERSONAL HISTORY OF ANTINEOPLASTIC CHEMO 02/04/2018 PHAM BLACKMON PHOTOGRAPHY PROFESSOR Ot Z95.0 PRESENCE OF CARDIAC PACEMAKER 02/04/2018 [...] OF UNSP BEHAVIOR OF BONE, SOFT 02/04/2018 FRTIZ HELMS MD Ot Z98.890 OTHER SPECIFIED POSTPROCEDURAL [...] G47.33 OBSTRUCTIVE SLEEP APNEA (ADULT) (PEDIATR 02/04/2018 SJAI BURNETT FAC, ALI FACP CCDS Ot I10 ESSENTIAL (PRIMARY) HYPERTENSION 02/04/2018 SAJI BURNETT [facility], ALI FACP CCDS Ot I47.1 SUPRAVENTRICULAR TACHYCARDIA 02/04/2018 SAJI BURNETT [facility], ALI FACP CCDS Ot I47.2 VENTRICULAR TACHYCARDIA 02/04/2018 SAJI BURNETT FAC, ALI FACP CCDS Ot Z72.0 TOBACCO USE 02/04/2018 SAJI BURNETT [facility], ALI FACP CCDS Ot Z95.0 PRESENCE OF CARDIAC PACEMAKER 02/04/2018 KAYLA KOENIG RISK ASSESSOR Ot E66.01 MORBID (SEVERE) OBESITY DUE TO EXCESS CA 02/04/2018 KAYLA KOENIG L RISK ASSESSOR Ot I10 ESSENTIAL (PRIMARY) HYPERTENSION 02/04/2018 KAYLA KOENIG RISK ASSESSOR Ot I47.1 SUPRAVENTRICULAR TACHYCARDIA 02/04/2018 KAYLA KOENIG RISK ASSESSOR Ot I47.2 VENTRICULAR TACHYCARDIA 02/04/2018 KAYLA KOENIG RISK ASSESSOR Ot I49.5 SICK SINUS SYNDROME 02/04/2018 KAYLA KOENIG RISK ASSESSOR Ot R00.2 PALPITATIONS 02/04/2018 DONTA RICH PHOTOGRAPHY PROFESSOR Ot I47.2 VENTRICULAR TACHYCARDIA 02/04/2018 DONTA RICH PHOTOGRAPHY PROFESSOR Ot I51.4 MYOCARDITIS, UNSPECIFIED 02/04/2018 JESUS BURNETT, [...] R05 COUGH 02/10/2018 SAI YAÑEZIS Ot Z79.51 GROUP DIRECTOR EXPERIENCE (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 OF INHALED STERO 02/10/2018 KRYSTEN [...] R05 COUGH 02/14/2018 KRYSTEN YAÑEZ Ot Z79.51 GROUP DIRECTOR EXPERIENCE (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 OF INHALED STERO 02/14/2018 KRYSTEN [...] M79.605 PAIN IN LEFT LEG 04/12/2018 KRYSTEN YAEÑZ Ot S90.122A CONTUSION OF LEFT LESSER TOE(S) W/O UJAN 04/12/2018 KRYSTEN YAÑEZ Ot W22.03XA WALKED INTO FURNITURE, INITIAL ENCOUNTER 04/12/2018 KRYSTEN YAÑEZ Ot Z79.51 GROUP DIRECTOR EXPERIENCE (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 OF INHALED STERO 04/12/2018 KRYSTEN [...] Ot I47.2 VENTRICULAR TACHYCARDIA 04/12/2018 SAJI BURNETT [facility], ALI FACP CCDS Ot Z72.0 TOBACCO USE 04/12/2018 SAJI BURNETT [facility], ALI FACP CCDS Ot Z95.0 PRESENCE OF CARDIAC PACEMAKER 04/12/2018 KAYLA KOENIG RISK ASSESSOR Ot E66.01 MORBID (SEVERE) OBESITY DUE TO EXCESS CA 04/12/2018 KAYLA KOENIG L RISK ASSESSOR Ot I10 ESSENTIAL (PRIMARY) HYPERTENSION 04/12/2018 KAYLA KOENIG RISK ASSESSOR Ot I47.1 SUPRAVENTRICULAR TACHYCARDIA 04/12/2018 KAYLA KOENIG L RISK ASSESSOR Ot I47.2 VENTRICULAR TACHYCARDIA 04/12/2018 KAYLA KOENIG RISK ASSESSOR Ot I49.5 SICK SINUS SYNDROME 04/12/2018 KAYLA KOENIG RISK ASSESSOR Ot R00.2 PALPITATIONS 04/12/2018 DONTA RICH PHOTOGRAPHY PROFESSOR Ot I47.2 VENTRICULAR TACHYCARDIA 04/12/2018 DONTA RICH PHOTOGRAPHY PROFESSOR Ot I51.4 MYOCARDITIS, UNSPECIFIED 04/12/2018 JESUS BURNETT, [...] INITIAL ENCOUNTER 04/14/2018 KRYSTEN YAÑEZ Ot Z79.51 RESIDENTIAL (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 OF INHALED STERO 04/14/2018 KRYSTEN [...] PRESENCE OF CARDIAC PACEMAKER 07/26/2018 KAYLA KOENIG RISK ASSESSOR Ot E66.01 MORBID (SEVERE) OBESITY DUE TO EXCESS CA 07/26/2018 KAYLA KOENIG RISK ASSESSOR Ot I10 ESSENTIAL (PRIMARY) HYPERTENSION 07/26/2018 KAYLA KOENIG RISK ASSESSOR Ot I47.1 SUPRAVENTRICULAR TACHYCARDIA 07/26/2018 KAYLA KOENIG RISK ASSESSOR Ot I47.2 VENTRICULAR TACHYCARDIA 07/26/2018 KAYLA KOENIG RISK ASSESSOR Ot I49.5 SICK SINUS SYNDROME 07/26/2018 KAYLA KOENIG RISK ASSESSOR Ot R00.2 PALPITATIONS 07/26/2018 DONTA RICH PHOTOGRAPHY PROFESSOR Ot I47.2 VENTRICULAR TACHYCARDIA 07/26/2018 DONTA RICH PHOTOGRAPHY PROFESSOR Ot I51.4 MYOCARDITIS, UNSPECIFIED 07/26/2018 JESUS BURNETT, [...] PRESENCE OF CARDIAC PACEMAKER 07/27/2018 SAJI BURNETT [facility], ALI FACP CCDS Ot E66.9 OBESITY, UNSPECIFIED 07/27/2018 SAJI BURNETT [facility], ALI FACP CCDS Ot G47.33 OBSTRUCTIVE SLEEP APNEA (ADULT) (PEDIATR 07/27/2018 SAJI BURNETT FACC, ALI FACP CCDS Ot I10 ESSENTIAL (PRIMARY) HYPERTENSION 07/27/2018 SAJI BURNETT [facility], ALI FACP CCDS Ot 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 07/27/2018 SAJI BURNETT [facility], ALI FACP CCDS Ot I47.2 VENTRICULAR TACHYCARDIA 07/27/2018 SAJI BURNETT [facility], ALI FACP CCDS Ot I49.5 SICK SINUS SYNDROME 07/27/2018 SAJI BURNETT [facility], ALI FACP CCDS Ot R42 DIZZINESS AND GIDDINESS 07/27/2018 SAJI BURNETT [facility], ALI FACP CCDS Ot Z68.41 BODY MASS INDEX (BMI) 40.0-44.9, ADULT 07/27/2018 SAJI BURNETT [facility], ALI FACP CCDS Ot Z95.0 PRESENCE OF CARDIAC PACEMAKER 07/28/2018 MELANIE BURNETT, CHINEDUAL Ot I10 ESSENTIAL (PRIMARY) HYPERTENSION 08/03/2018 FRANCISCO TRINIDAD MD Ot E78.5 HYPERLIPIDEMIA, UNSPECIFIED 08/03/2018 FRANCISCO TRINIDAD MD Ot F32.9 MAJOR DEPRESSIVE DISORDER, SINGLE EPISOD 08/03/2018 FRANCISCO TRINIDAD MD Ot F41.9 ANXIETY DISORDER, UNSPECIFIED 08/03/2018 FRANCISCO TRINIDAD MD Ot F43.10 POST-TRAUMATIC STRESS DISORDER, UNSPECIF 08/03/2018 FRANCISCO TRINIDAD MD Ot G44.209 TENSION-TYPE HEADACHE, UNSPECIFIED, NOT 08/03/2018 FRANCISCO TRINIDAD MD Ot G47.30 SLEEP APNEA, UNSPECIFIED 08/03/2018 FRANCISCO TRINIDAD MD Ot I10 ESSENTIAL (PRIMARY) HYPERTENSION 08/03/2018 FRANCISCO TRINIDAD MD Ot I25.10 ATHSCL HEART DISEASE OF [place] CORONARY 08/03/2018 FRANCISCO TRINIDAD MD Ot I34.1 NONRHEUMATIC MITRAL (VALVE) PROLAPSE 08/03/2018 FRANCISCO TRINIDAD MD Ot I42.9 CARDIOMYOPATHY, UNSPECIFIED 08/03/2018 FRANCISCO TRINIDAD MD Ot I47.1 SUPRAVENTRICULAR TACHYCARDIA 08/03/2018 FRANCISCO TRINIDAD MD, Ot M23.322 OTH MENISCUS DERANG, POST HORN OF MEDIAL 08/03/2018 FRANCISCO TRINIDAD MD, Ot 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, LEFT KNEE 08/03/2018 FRANCISCO TRINIDAD MD Ot Z79.899 OTHER GROUP DIRECTOR EXPERIENCE (CURRENT) DRUG THERAPY 08/03/2018 FRANCISCO TRINIDAD MD, Ot Z87.891 PERSONAL HISTORY OF NICOTINE DEPENDENCE 08/03/2018 FRANCISCO TRINIDAD MD, Ot Z88.0 ALLERGY STATUS TO PENICILLIN 08/03/2018 FRANCISCO TRINIDAD MD Ot Z95.0 PRESENCE OF CARDIAC PACEMAKER 08/03/2018 PHAM BLACKMON APRN Ot E78.00 PURE HYPERCHOLESTEROLEMIA, UNSPECIFIED 08/03/2018 PHAM BLACKMON APRN Ot F41.9 ANXIETY DISORDER, UNSPECIFIED 08/03/2018 PHAM BLACKMON APRN Ot F43.10 POST-TRAUMATIC STRESS DISORDER, UNSPECIF 08/03/2018 PHAM BLACKMON APRN Ot F91.3 OPPOSITIONAL DEFIANT DISORDER 08/03/2018 PHAM BLACKMON APRN Ot G43.909 MIGRAINE, UNSP, NOT INTRACTABLE, WITHOUT 08/03/2018 PHAM BLACKMON APRN Ot G47.30 SLEEP APNEA, UNSPECIFIED 08/03/2018 PHAM BLACKMON APRN Ot I10 ESSENTIAL (PRIMARY) HYPERTENSION 08/03/2018 PHAM BLACKMON APRN Ot M19.011 PRIMARY OSTEOARTHRITIS, RIGHT SHOULDER 08/03/2018 PHAM BLACKMON APRN Ot R11.2 NAUSEA WITH VOMITING, UNSPECIFIED 08/03/2018 PHAM BLACKMON APRN Ot T81.89XA OTH COMPLICATIONS OF PROCEDURES, NEC, IN 08/03/2018 PHAM BLACKMON APRN Ot Z77.22 CNTCT W AND EXPSR TO ENVIRON TOBACCO SMO 08/03/2018 PHAM BLACKMON APRN Ot Z85.828 PERSONAL HISTORY OF OTHER MALIGNANT NEOP 08/03/2018 PHAM BLACKMON APRN Ot Z88.0 ALLERGY STATUS TO PENICILLIN 08/03/2018 PHAM BLACKMON APRN Ot Z88.6 ALLERGY STATUS TO ANALGESIC AGENT STATUS 08/03/2018 BLACKMON, PETER J PHOTOGRAPHY PROFESSOR Ot Z88.7 ALLERGY STATUS TO SERUM AND VACCINE STAT 08/03/2018 PHAM BLACKMON APRN Ot Z88.8 ALLERGY STATUS TO OTH DRUG/MEDS/BIOL SUB 08/03/2018 PHAM BLACKMON APRN Ot Z95.0 PRESENCE OF CARDIAC PACEMAKER 08/04/2018 FRANCISCO TRINIDAD MD Ot E78.5 HYPERLIPIDEMIA, UNSPECIFIED 08/04/2018 FRANCISCO TRINIDAD MD Ot F32.9 MAJOR DEPRESSIVE DISORDER, SINGLE EPISOD 08/04/2018 FRANCISCO TRINIDAD MD Ot F41.9 ANXIETY DISORDER, UNSPECIFIED 08/04/2018 FRANCISCO TRINIDAD MD Ot F43.10 POST-TRAUMATIC STRESS DISORDER, UNSPECIF 08/04/2018 FRANCISCO TRINIDAD MD Ot G44.209 TENSION-TYPE HEADACHE, UNSPECIFIED, NOT 08/04/2018 FRANCISCO TRINIDAD MD Ot G47.30 SLEEP APNEA, UNSPECIFIED 08/04/2018 FRANCISCO TRINIDAD MD Ot I10 ESSENTIAL (PRIMARY) HYPERTENSION 08/04/2018 FRANCISCO TRINIDAD MD Ot I25.10 ATHSCL HEART DISEASE OF [place] CORONARY 08/04/2018 FRANCISCO TRINIDAD MD Ot I34.1 NONRHEUMATIC MITRAL (VALVE) PROLAPSE 08/04/2018 FRANCISCO TRINIDAD MD Ot I42.9 CARDIOMYOPATHY, UNSPECIFIED 08/04/2018 FRANCISCO TRINIDAD MD Ot I47.1 SUPRAVENTRICULAR TACHYCARDIA 08/04/2018 FRANCISCO TRINIDAD MD Ot M23.322 OTH MENISCUS DERANG, POST HORN OF MEDIAL 08/04/2018 FRANCISCO TRINIDAD MD Ot 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, LEFT KNEE 08/04/2018 FRANCISCO TRINIDAD MD Ot Z79.899 OTHER GROUP DIRECTOR EXPERIENCE (CURRENT) DRUG THERAPY 08/04/2018 FRANCISCO TRINIDAD MD Ot Z87.891 PERSONAL HISTORY OF NICOTINE DEPENDENCE 08/04/2018 FRANCISCO TRINIDAD MD Ot Z88.0 ALLERGY STATUS TO PENICILLIN 08/04/2018 FRANCISCO TRINIDAD MD Ot Z95.0 PRESENCE OF CARDIAC PACEMAKER 08/05/2018 PHAM BLACKMON APRN Ot E78.00 PURE HYPERCHOLESTEROLEMIA, UNSPECIFIED 08/05/2018 PHAM BLACKMON APRN Ot F41.9 ANXIETY DISORDER, UNSPECIFIED 08/05/2018 PHAM BLACKMON APRN Ot F43.10 POST-TRAUMATIC STRESS DISORDER, UNSPECIF 08/05/2018 PHAM BLACKMON APRN Ot F91.3 OPPOSITIONAL DEFIANT DISORDER 08/05/2018 PHAM BLACKMON APRN Ot G43.909 MIGRAINE, UNSP, NOT INTRACTABLE, WITHOUT 08/05/2018 PHAM BLACKMON APRN Ot G47.30 SLEEP APNEA, UNSPECIFIED 08/05/2018 PHAM BLACKMON APRN Ot I10 ESSENTIAL (PRIMARY) HYPERTENSION 08/05/2018 PHAM BLACKMNO APRN Ot M19.011 PRIMARY OSTEOARTHRITIS, RIGHT SHOULDER 08/05/2018 PHAM BLACKMON APRN Ot R11.2 NAUSEA WITH VOMITING, UNSPECIFIED 08/05/2018 PHAM BLACKMON APRN Ot T81.89XA OTH COMPLICATIONS OF PROCEDURES, NEC, IN 08/05/2018 PHAM BLACKMON APRN Ot Z77.22 CNTCT W AND EXPSR TO ENVIRON TOBACCO SMO 08/05/2018 PHAM BLACKMON APRN Ot Z85.828 PERSONAL HISTORY OF OTHER MALIGNANT NEOP 08/05/2018 PHAM BLACKMON APRN Ot Z88.0 ALLERGY STATUS TO PENICILLIN 08/05/2018 PHAM BLACKMON APRN Ot Z88.6 ALLERGY STATUS TO ANALGESIC AGENT STATUS 08/05/2018 PHAM BLACKMON APRN Ot Z88.7 ALLERGY STATUS TO SERUM AND VACCINE STAT 08/05/2018 PHAM BLACKMON APRN Ot Z88.8 ALLERGY STATUS TO OTH DRUG/MEDS/BIOL SUB 08/05/2018 PHAM BLACKMON APRN Ot Z95.0 PRESENCE OF CARDIAC PACEMAKER 08/05/2018 FRANCISCO TRINIDAD MD Ot E78.5 HYPERLIPIDEMIA, UNSPECIFIED 08/05/2018 FRANCISCO TRINIDAD MD Ot F32.9 MAJOR DEPRESSIVE DISORDER, SINGLE EPISOD 08/05/2018 FRANCISCO TRINIDAD MD Ot F41.9 ANXIETY DISORDER, UNSPECIFIED 08/05/2018 FRANCISCO TRINIDAD MD Ot F43.10 POST-TRAUMATIC STRESS DISORDER, UNSPECIF 08/05/2018 FRANCISCO TRINIDAD MD Ot G44.209 TENSION-TYPE HEADACHE, UNSPECIFIED, NOT 08/05/2018 FRANCISCO TRINIDAD MD Ot G47.30 SLEEP APNEA, UNSPECIFIED 08/05/2018 FRANCISCO TRINIDAD MD, Ot I10 ESSENTIAL (PRIMARY) HYPERTENSION 08/05/2018 FRANCISCO TRINIDAD MD, Ot I25.10 ATHSCL HEART DISEASE OF [place] CORONARY 08/05/2018 FRANCISCO TRINIDAD MD, Ot I34.1 NONRHEUMATIC MITRAL (VALVE) PROLAPSE 08/05/2018 FRANCISCO TRINIDAD MD, Ot I42.9 CARDIOMYOPATHY, UNSPECIFIED 08/05/2018 FRANCISCO TRINIDAD MD, Ot I47.1 SUPRAVENTRICULAR TACHYCARDIA 08/05/2018 FRANCISCO TRINIDAD MD, Ot M23.322 OTH MENISCUS DERANG, POST HORN OF MEDIAL 08/05/2018 FRANCISCO TRINIDAD MD, Ot 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, LEFT KNEE 08/05/2018 FRANCISCO TRINIDAD MD, Ot Z79.899 OTHER GROUP DIRECTOR EXPERIENCE (CURRENT) DRUG THERAPY 08/05/2018 FRANCISCO TRINIDAD MD, Ot Z87.891 PERSONAL HISTORY OF NICOTINE DEPENDENCE 08/05/2018 FRANCISCO TRINIDAD MD, Ot Z88.0 ALLERGY STATUS TO PENICILLIN 08/05/2018 FRANCISCO TRINIDAD MD, Ot Z95.0 PRESENCE OF CARDIAC PACEMAKER 08/10/2018 MELANIE BURNETT, JOE Ot I10 ESSENTIAL (PRIMARY) HYPERTENSION Procedures Code Description Performed By Performed On [id number] INSERT OF MONITOR DEV INTO CHEST SUBCU/F 03/12/2015 [id number] MEASURE OF CARDIAC SAMPL PRESSURE, L H 03/12/2015 [id number] FLUOROSCOPY OF MULT COR ART USING L OSM 03/12/2015 [id number] FLUOROSCOPY OF LEFT HEART USING LOW OSMO 03/12/2015 [id number] FLUOROSCOPY OF THORACIC AORTA USING LOW 03/12/2015 [...] 17:29 Bacteria identification in wound by culture [id number] NRG QUANTITY OF GROWTH Scant Growth NRG Gram stain microscopy - 06/19/16 22:02 GRAM STAIN RESULT NO WBC'S OR BACTERIA OBSERVED NRG Bacteria identification in wound by culture - 06/19/16 22:02 Bacteria identification in wound by culture [id number] NR QUANTITY OF GROWTH Moderate Growth NRG Gram stain microscopy - 06/19/16 23:16 GRAM STAIN RESULT NO WBC'S OR BACTERIA OBSERVED NRG Bacteria identification in wound by culture - 06/19/16 23:16 Bacteria identification in wound by culture [facility] Influenza virus A and B antigen detection - 03/09/17 09:57 FLU RESULT NEGATIVE FOR INFLUENZA A AND B ANTIGENS BY IA [facility] * Reference lab test name - 03/09/17 [...] 10:30 Serum aldolase measurement 5.2 U/L 1.5-8.1 [id number] - 03/09/17 10:30 Screening antinuclear antibody (SERENA) assay by enzyme immunoassay <1:80 <1:80 Serum DNA double strand antibody detection - 03/09/17 10:30 Serum DNA double strand antibody assay (units/volume) 29 [iU]/mL 0-300 Cerebrospinal fluid cytomegalovirus IgG and IgM panel - 03/09/17 10:30 [id number] Negative Negative Serum cytomegalovirus IgM antibody assay [...] IgM antibody assay (units/volume) 2.14 % 0.00-0.89 [id number] - 03/09/17 10:30 Serum herpes simplex virus (HSV) type 2 IgM antibody detection <1:10 <1:10 [id number] - 03/09/17 10:30 [id number] Negative Negative Human immunodeficiency virus (HIV) type [...] consultation and report SEE PATH REPORT NRG [id number] - 03/09/17 10:30 Serum tissue transglutaminase IgA [...] nuclear antibody assay (units/volume) - 03/09/17 10:30 [id number] Negative Negative Serum Lei extractable nuclear antigen (YANIV) antibody assay (units/volume) < U 0-19 Ribonucleic protein (PSYCHOLOGY CLINICIAN) ab - 03/09/17 10:30 Ribonucleic protein antibody assay <20 0-19 HSV 1T2 PCR (BLOOD/FLUID) - 03/09/17 10:30 Herpes simplex virus (HSV) type 1 DNA detection by polymerase chain reaction Not Detected NOT DET Herpes simplex virus (HSV) type 2 DNA detection by PCR Not Detected NOT DET Lysozyme measurement - 03/09/17 10:30 Lysozyme measurement 8.4 ug/mL 5.0-11.0 [id number] - 03/09/17 10:30 Russel Davila virus DNA [#/volume] (viral load) in unspecified specimen by probe and target amplification method Not Detected <200 Adenovirus detection, CSF, PCR - 03/09/17 10:30 Adenovirus detection, CSF, PCR SEE FOOTNOTE NRG Serum or plasma rheumatoid factor measurement (units/volume) - 01/30/18 10:34 Serum or plasma rheumatoid factor measurement [...] 03/09/17 10:34 * Reference lab test results MPO/WY-3 ANCA AB [facility] * Reference lab test name - 03/09/17 [...] - 06/18/17 13:04 ABSOLUTE NEUTROPHILS 3080 cells/uL 7008-5846 ABSOLUTE MONOCYTES 448 cells/uL 200-950 ABSOLUTE EOSINOPHILS [...] - 07/21/17 11:32 ABSOLUTE NEUTROPHILS 4992 cells/uL 1304-5589 ABSOLUTE MONOCYTES 858 cells/uL 200-950 ABSOLUTE EOSINOPHILS 0 cells/uL 15-500 ABSOLUTE BASOPHILS 0 cells/uL 0-200 NEUTROPHILS 64.0 % NRG LYMPHOCYTES 25.0 % NRG MONOCYTES 11.0 % NRG EOSINOPHILS 0 % NRG BASOPHILS 0 % NRG ABSOLUTE LYMPHOCYTES 1950 cells/uL 850-3900 PLATELET ESTIMATION ADEQUATE ADEQUATE DIFFERENTIAL, [facility] - 09/07/17 10:45 ABSOLUTE NEUTROPHILS 3913 cells/uL 1597-3890 ABSOLUTE MONOCYTES 663 cells/uL 200-950 ABSOLUTE EOSINOPHILS [...] - 09/14/17 12:34 MAGNESIUM 2.5 mg/dL 1.5-2.5 [facility] - 09/20/17 12:10 GLUCOSE 81 mg/dL 65-99 UREA NITROGEN (BUN) 22 mg/dL 7-25 CREATININE 1.56 mg/dL 0.60-1.35 eGFR NON-AFR. [place]EN[place] 52 mL/min/1.73m2 > OR=60 eGFR 61 mL/min/1.73m2 > OR=60 BUN/CREATININE RATIO 14 (calc) 6-22 SODIUM 141 mmol/L 135-146 POTASSIUM 3.9 mmol/L 3.5-5.3 CHLORIDE 113 mmol/L 98-110 CARBON DIOXIDE 27 mmol/L 20-32 CALCIUM 9.3 mg/dL 8.6-10.3 [facility] - 09/23/17 11:28 GLUCOSE 103 mg/dL 65-99 UREA NITROGEN (BUN) 16 mg/dL 7-25 CREATININE 1.25 mg/dL 0.60-1.35 eGFR NON-AFR. CENTRAL AFRICAN 68 mL/min/1.73m2 > OR=60 eGFR 79 mL/min/1.73m2 [...] - 11/17/17 16:30 ABSOLUTE NEUTROPHILS 6780 cells/uL 0070-8986 ABSOLUTE MONOCYTES 501 cells/uL 200-950 ABSOLUTE EOSINOPHILS [...] - 12/29/17 10:59 ABSOLUTE NEUTROPHILS 4655 cells/uL 2540-1659 ABSOLUTE MONOCYTES 459 cells/uL 200-950 ABSOLUTE EOSINOPHILS [...] - 01/21/18 10:18 ABSOLUTE NEUTROPHILS 4658 cells/uL 1916-9270 ABSOLUTE MONOCYTES 878 cells/uL 200-950 ABSOLUTE EOSINOPHILS [...] 7-25 CREATININE 1.10 mg/dL 0.60-1.35 eGFR NON-AFR. CENTRAL AFRICAN 80 mL/min/1.73m2 > OR=60 eGFR 92 mL/min/1.73m2 [...] (mass/volume) 9.1 mg/dL 8.5-10.1 Radiology Report from [facility] on 10/30/2011 14:50:00 DIAGNOSTIC IMAGING REPORT [facility] - [address] [address] PHONE #: [phone] FAX #: [phone] Name: GAMA MATSON Loc: MiloJUDITH Radiology No: [id number] : 1970 Age: 41 Sex: M Status: REG CLI Unit No: [id number] Phys: ROELVONDAJohnie Analisa Ulrich MD Acct: [id number] Reason For Exam: EDEMA/LT LEG VENOUS Exam Date: 10/30/2011 EXAMS: CPT CODE: [id number] DOPPLER EXTR VENOUS LMTD 44011 REASON FOR EXAM: left lower extremity pain [...] or corrected the resident physician's interpretation. at 6739 RESIDENT: NAEEM CASTELLANO DO Reported and signed by: SHANIKA NAVARRO MD CC: Analisa Ha MD Technologist: CRISTHIAN MARQUEZ Transcribed Date/Time: 10/30/2011 (5676)Liability Claims Representative: MIKE Printed Date/Time: 10/30/2011 (7115) BATCH NO: N/A PAGE 1 Signed Report Radiology Report from [facility] on 12/20/2012 17:07:00 DIAGNOSTIC IMAGING REPORT [facility] - [address] [address] PHONE #: [phone] FAX #: [phone] Name: GAMA MATSON Loc: [facility] Radiology No: [id number] : 1970 Age: 42 Sex: M Status: REG CLI Unit No: [id number] Phys: Analisa Hodges MD Acct: [id number] Reason For Exam: LEG PAIN Exam Date: 12/20/2012 EXAMS: CPT CODE: [id number] MRI FEMUR LEFT W W/O 11967 TIME OF EXAM: 12/20/2012 12:30 PM REASON FOR EXAM: LEG PAIN . History of a lipoma that was previously excised in the upper left leg in 2004. COMPARISON: 07/23/2008 MRI of the left femur. TECHNIQUE: Multiplanar multisequence [id number]-gzk-nbvt contrast enhanced MRI of the left femur [...] MD Technologist: JACKSON CARUSO Transcribed Date/Time: 12/20/2012 (6631)Liability Claims Representative: PBRAKDA Printed Date/Time: 12/20/2012 (1258) BATCH NO: N/A PAGE 1 Signed Report Radiology Report from [facility] on 12/20/2012 17:08:00 DIAGNOSTIC IMAGING REPORT [facility] - [address] [address] PHONE #: [phone] FAX #: [phone] Name: HUYENGAMA OLVIN Loc: DIA[facility] Radiology No: [id number] : 1970 Age: 42 Sex: M Status: REG I Unit No: [id number] Phys: Analisa Hodges MD Acct: [id number] Reason For Exam: LEG PAIN Exam Date: 12/20/2012 EXAMS: CPT CODE: [id number] MRI TIB/FIB LEFT W W/O 81847 REASON FOR EXAM: LEG PAIN . History of a lipoma that was previously excised in the upper left leg in 2004. TIME OF THE CURRENT EXAMINATION: 12/20/2012 12:30 PM COMPARISON: None TECHNIQUE: Multiplanar multisequence msw-syt-csyv contrast enhanced MRI of the left tibia-fibula [...] MD Technologist: JACKSON CARUSO Transcribed Date/Time: 12/20/2012 (402)Liability Claims Representative: MYRIAM Printed Date/Time: 12/20/2012 (7498) BATCH NO: N/A PAGE 1 Signed Report Encounters ACCT No. Visit Date/Time Discharge Status Pt. Type Provider Facility Loc./Unit Complaint [id number] 05/16/2018 07:49:00 05/16/2018 07:49:00 CAN Outpatient THIEN ORTIZ [id number] 05/06/2017 21:48:00 05/06/2017 23:30:00 DIS Outpatient Chance Jarred [id number] 05/06/2017 22:17:02 Document Registration [id number] 12/20/2012 09:52:00 12/20/2012 09:52:00 DIS Outpatient Analisa Ha MD [facility] W.PEDRITO [id number] 10/30/2011 08:11:00 10/30/2011 08:11:00 DIS Outpatient Analisa Ha MD [facility] W.JUDITH [id number] 08/17/2018 10:20:00 08/17/2018 23:59:59 [facility] Outpatient ALENA ÁLVAREZ [facility] [id number] 05/11/2018 16:20:00 Document Registration [id number] 01/21/2018 10:20:00 Document Registration [id number] 12/29/2017 11:00:00 Document Registration [id number] 11/17/2017 16:20:00 Document Registration [id number] 2017 10:40:00 Document Registration [id number] 09/20/2017 11:20:00 Document Registration [id number] 09/14/2017 12:20:00 Document Registration [id number] 09/07/2017 10:20:00 Document Registration [id number] 07/21/2017 12:00:00 Document Registration [id number] 06/18/2017 13:00:00 Document Registration [id number] 05/12/2017 11:00:00 Document Registration [id number] 12/09/2014 10:05:00 12/09/2014 10:53:00 DIS Emergency CONNOR PAULSON MD [facility] ER [id number] 12/08/2014 20:41:00 12/09/2014 05:24:00 DIS Outpatient ABHISHEK PARISH PHOTOGRAPHY PROFESSOR [facility] SLEEP [id number] 11/12/2014 16:10:00 11/12/2014 23:59:59 CLS Outpatient EDUIN CARDONA RISK ASSESSOR [facility] RAD [id number] 11/07/2014 20:53:00 11/08/2014 06:06:00 DIS Outpatient EDUIN CARDONA RISK ASSESSOR [facility] SLEEP [id number] 10/11/2014 13:04:00 10/11/2014 23:59:59 CLS Outpatient GENIA MONTANEZ DO [facility] RAD [id number] 08/31/2014 16:06:00 08/31/2014 18:49:00 DIS Emergency PHAM BLACKMON PHOTOGRAPHY PROFESSOR [facility] ER [id number] 08/24/2014 22:00:00 08/24/2014 23:52:00 DIS Emergency PHAM BLACKMON PHOTOGRAPHY PROFESSOR [facility] ER [id number] 08/18/2014 11:44:00 08/18/2014 14:10:00 DIS Emergency ALEXANDRIA GRIFFITH [facility] ER [id number] 07/19/2014 09:15:00 07/19/2014 23:59:59 CLS Outpatient RODRIGO RODRIGUEZ PHOTOGRAPHY PROFESSOR [facility] CARD [id number] 06/13/2014 08:38:00 06/13/2014 23:59:59 CLS Outpatient CARYN AVILES DO [facility] LAB [id number] 08/03/2018 20:02:00 08/03/2018 21:18:00 DIS Emergency PHAM BLACKMON APRN [facility] ER VOMITING,NAUSEA [id number] 08/03/2018 08:28:00 08/03/2018 14:05:00 DIS Outpatient FRANCISCO TRINIDAD MD [facility] SDC LEFT KNEE MEDIAL MENISCUS TEAR [id number] 07/26/2018 14:12:00 07/26/2018 23:59:59 CLS Outpatient JOE NAVARRO MD [facility] LAB RESISTANT HYPERTENSION [id number] 07/26/2018 13:16:00 07/26/2018 14:16:00 DIS Outpatient FRANCISCO TRINIDAD MD [facility] PREOP LEFT KNEE MEDIAL MENISCUS TEAR [id number] 07/13/2018 13:13:00 07/13/2018 23:59:59 CLS Outpatient SAJI BURNETT FACC, RANCHO INGRAM CCDS [facility] LAB I10,R42 [id number] 06/02/2018 13:36:00 06/02/2018 17:32:00 DIS Emergency CHEMA BURNETT, DAVID Lyn [facility] ER HIGH BP; L ARM NUMBNESS [id number] 05/05/2018 11:49:00 05/05/2018 23:59:59 CLS Outpatient ALENA ÁLVAREZ MD [facility] LAB I10 [id number] 05/04/2018 12:07:00 05/04/2018 23:59:59 CLS Outpatient ALENA ÁLVAREZ MD [facility] LAB HTN [id number] 04/12/2018 18:11:00 04/12/2018 19:08:00 DIS Emergency KRYSTEN YAÑEZ [facility] ER LEFT LEG PAIN [id number] 02/10/2018 17:39:00 02/10/2018 19:05:00 DIS Emergency KRYSTEN YAÑEZ [facility] ER COUGH,DIARRHEA [id number] 02/04/2018 13:37:00 02/04/2018 14:20:00 DIS Emergency PHAM BLACKMON APRN [facility] ER RUNNY NOSE;SORE THROAT [id number] 07/08/2017 20:28:00 07/08/2017 21:33:00 DIS Emergency PHAM BLACKMON APRN [facility] ER EAR INFECTION/RESP INFECTION [id number] 05/14/2017 13:48:00 05/14/2017 23:59:59 CLS Outpatient PAMELA LEE MD [facility] RAD R05 [id number] 03/09/2017 09:15:00 03/09/2017 23:59:59 CLS Outpatient DONTA RICH APRN [facility] LAB I51.4,I47.2 [id number] 02/19/2017 12:01:00 02/19/2017 23:59:59 CLS Outpatient KAYLA KOENIG [facility] LAB I10 I49.5 R00.2 I47.2 E66.01 [id number] 02/19/2017 10:08:00 02/19/2017 23:59:59 CLS Outpatient SAJI BURNETT FACC, RANCHO FACP CCDS [facility] CARD I47.2 NSVT [id number] 02/04/2017 07:26:00 02/04/2017 23:59:59 CLS Outpatient SAJI BURNETT FACC, ALI FACP CCDS [facility] CARD I47.2 NSVT [id number] 12/17/2016 11:54:00 12/17/2016 23:59:59 CLS Outpatient SAJI BURNETT FACC ALI FACCarson CCDS [facility] RAD 147.2 Z95.0 [id number] 11/13/2016 10:56:00 11/13/2016 23:59:59 CLS Outpatient FRITZ HELMS MD [facility] RAD TUMOR OF SOFT TISSUE [id number] 06/19/2016 20:19:00 06/19/2016 23:17:00 DIS Emergency ALEXANDRIA GRIFFITH [facility] ER POST OP/L LEG INCISION BLEEDING [id number] 06/05/2016 17:18:00 06/05/2016 18:14:00 DIS Emergency PHAM BLACKMON APRN [facility] ER LEFT LEG WOUND OPENED [id number] 05/01/2016 09:19:00 05/01/2016 23:59:59 CLS Outpatient RANCHO LENNON MD, FACC, FACP CCDS [facility] LAB HTN,PALPITATIONS,PSVT,MELI [id number] 03/25/2016 06:15:00 03/25/2016 11:23:00 DIS Outpatient FRANCISCO TRINIDAD MD [facility] RIGHT SHOULDER PRIMARY OA [id number] 03/18/2016 09:16:00 03/18/2016 11:00:00 DIS Outpatient FRANCISCO TRINIDAD MD [facility] PREOP RIGHT SHOULDER PRIMARY OA [id number] 02/20/2016 07:39:00 02/21/2016 13:30:00 DIS Outpatient Laurence PANG MD [facility] CATH SEVERE DOMINICK [id number] 10/02/2015 10:15:00 10/02/2015 14:55:00 DIS Outpatient FRANCISCO TRINIDAD MD [facility] RIGHT LABRAL TEAR [id number] 09/26/2015 10:59:00 09/26/2015 11:26:00 DIS Outpatient FRANCISCO TRINIDAD MD [facility] PREOP RIGHT LABRAL TEAR [id number] 05/22/2015 09:00:00 05/22/2015 15:00:00 DIS Outpatient FRANCISCO TRINIDAD MD [facility] TORN ROTATOR RAKESH [id number] 05/17/2015 10:19:00 05/17/2015 11:48:00 DIS Outpatient FRANCISCO TRINIDAD MD [facility] PREOP TORN ROTATOR RAKESH [id number] 04/16/2015 13:07:00 04/16/2015 23:59:59 CLS Outpatient GENIA MONTANEZ DO [facility] RAD LT THIGH MASS AND PAIN [id number] 03/12/2015 08:56:00 03/12/2015 23:59:59 CLS Outpatient RANCHO LENNON MD, FACC, FACP CCDS [facility] CATH CAD,HLP,TACHYCARDIA,PALPITATIONS [id number] 02/14/2015 13:02:00 02/14/2015 14:49:00 DIS Emergency LORENE BURNETT, CONNOR Matthew [facility] ER CHEST PAIN [id number] 03/01/2015 14:26:00 Document Registration [id number] 12/09/2014 10:05:00 Document Registration [id number] 12/08/2014 20:41:00 Document Registration [id number] 11/07/2014 20:53:00 Document Registration
== END 2018-08-29 15:00 | disposition home or self-care (01) ==
LOC: EDUNIT# 14:23 → ER 14:24
DX: C49.22 Malignant neoplasm of connective and soft tissue of left lower limb, including hip (principal); G89.3 Neoplasm related pain (acute) (chronic); M79.652 Pain in left thigh; G62.9 Polyneuropathy, unspecified; G47.30 Sleep apnea, unspecified; I10 Essential (primary) hypertension; E78.00 Pure hypercholesterolemia, unspecified; I42.9 Cardiomyopathy, unspecified; G43.909 Migraine, unspecified, not intractable, without status migrainosus; M19.011 Primary osteoarthritis, right shoulder; F43.10 Post-traumatic stress disorder, unspecified; F41.9 Anxiety disorder, unspecified; F91.3 Oppositional defiant disorder; F17.210 Nicotine dependence, cigarettes, uncomplicated; Z88.0 Allergy status to penicillin; Z88.6 Allergy status to analgesic agent; Z88.8 Allergy status to other drugs, medicaments and biological substances; Z95.0 Presence of cardiac pacemaker
CPT/HCPCS: 96372; 99284

== ENCOUNTER 2018-09-08 11:37 | Day surgery (SDC) | payer MEDICAID ==
[2018-09-08] VITALS (7 sets, daily range): BP systolic 137–174; BP diastolic 82–108
[~2018-09-08] VITALS: Ht 170.2 cm; Wt 139.9 kg
[2018-09-08] MEDS ORDERED: NS IV 1000 ML 1,000 ML ONE (11:43)
[2018-09-08] MEDS ORDERED: LIDOCAINE 1% INJ 20 ML 20 ML VIAL ONE (11:50)
[2018-09-08] MEDS ORDERED: HEParin (CATH LAB) 1,000 ML IV ONE (11:50)
[2018-09-08] MEDS ORDERED: NS IV 1000 ML 1,000 ML IV ONE (12:06)
[2018-09-08] MEDS ORDERED: BACITRACIN INJECTION 50,000 UNIT, SODIUM CHLORIDE 0.9% IRRIGATIO 500 ML IR ONE ×2 (12:15)
[2018-09-08 12:51] LABS: MEAN PLATELET VOLUME 12.5 FL (7.4-10.4); RED CELL DISTRIBUTION WIDTH 13.5 % (10.0-14.5)
[2018-09-08 13:03] LABS: PROTHROMBIN TIME PATIENT 13.9 SEC (12.2-14.7)
[2018-09-08] MEDS ORDERED: VANCOMYCIN INJECTION 1,000 MG in NS (IVPB) 250 ML IV ONE (13:05)
[2018-09-08 13:12] LABS: ALANINE AMINOTRANSFERASE 28 U/L (0-55); ALBUMIN 3.9 GM/DL (3.2-4.5); ALKALINE PHOSPHATASE 94 U/L (40-136); BILIRUBIN,TOTAL 0.8 MG/DL (0.1-1.0); BUN/CREATININE RATIO 18; CALCIUM 9.6 MG/DL (8.5-10.1); CARBON DIOXIDE 25 MMOL/L (21-32); CHLORIDE 104 MMOL/L (98-107); GFR ESTIMATED > 60; GLUCOSE 107 MG/DL (70-105); POTASSIUM 4.1 MMOL/L (3.6-5.0); SODIUM 140 MMOL/L (135-145); TOTAL PROTEIN 7.2 GM/DL (6.4-8.2)
[2018-09-08] MEDS ORDERED: fentaNYL INJECTION 100 MCG/2 ML AMP ONE ×2 (16:32→16:43)
[2018-09-08] MEDS ORDERED: MIDAZOLAM 5 MG/5 ML (VERSED) VIAL ONE ×2 (16:32→16:43)
[2018-09-08] MEDS ORDERED: HYDROmorphone 2 MG/ML VIAL (DILAUDID) ONE ×2 (16:56→17:38)
[2018-09-08] MEDS ORDERED: proPOfol 200 MG/20 ML (DIPRIVAN) VIAL IV ONE (17:48)
[2018-09-08] MEDS ORDERED: LACTATED RINGERS 1,000 ML IV ONE (18:21)
--- NOTE | 2018-09-08 18:37 | Progress Note ---
Standard Progress Note Progress Notes/Assess & Plan Date Seen by a Provider: Sep 08, 2018 Time Seen by a Provider: 18:25 Progress/Assessment & Plan sedaton for ICD testing. asa 3 .. start time 1824 end time 1832. 30 mg propofol given iv GOLDEN GOLDEN CRNA Sep 08, 2018 18:37
[2018-09-08] MEDS ORDERED: NEO/POLY/BAC (NEOSPORIN) OINT 15 GM TUBE ONE (18:40)
--- NOTE | 2018-09-08 18:48 | Cardiac Procedure Note-CS/ASA ---
Pre-Procedure Note Pre-Op Procedure Note H&P Reviewed The H&P was reviewed, patient examined and no changes noted. Date H&P Reviewed: Sep 08, 2018 Time H&P Reviewed: 14:00 Conscious Sedation Pre-Proced Time 14:00 ASA Score 3 For ASA 3 and 4: Consider anesthesia and medical clearance. Also, for patients with a history of failed moderate sedation consider anesthesia. Airway Lungs Heart ASA score ASA 1: a normal healthy patient ASA 2: a patient with a mild systemic disease (mid diabetes, controlled hypertension, obesity ASA 3: a patient with a severe systemic disease that limits activity (angina, COPD, prior Myocardial infarction) ASA 4: a patient with an incapacitating disease that is a constant threat to life (CHF, renal failure) ASA 5: a moribund patient not expected to survive 24 hrs. (ruptured aneurysm) ASA 6: a declared brain- patient whose organs are being harvested. For emergent operations, add the letter E after the classification Mallampati Classification Grade 1 Sedation Plan Analgesia, Amnesia, Plan communicated to team members, Discussed options with patient/fam, Discussed risks with patient/fam The patient is an appropriate candidate to undergo the planned procedure, sedation, and anesthesia. The patient immediately re-assessed prior to indication. Laurence PANG MD Sep 08, 2018 18:48
[2018-09-08] MEDS ORDERED: NS IV 1000 ML 1,000 ML IV SCH (19:05)
--- NOTE | 2018-09-08 19:05 | ICD Implantation ---
Single Chamber ICD Implant DATE OF SERVICE: 09/08/2018 lead extraction and upgrade to dual-chamber ICD CARDIAC EMAIL PRODUCER: Homero Valdez MD INDICATION: 1. Severe chronic myocarditis, nonsustained VT, syncope, high risk for sudden cardiac . 2. Previous dual-chamber permanent pacemaker due to severe symptomatic sinus node dysfunction. PREOPERATIVE DIAGNOSES: 1. Severe chronic myocarditis, nonsustained VT, syncope, high risk for sudden cardiac . 2. Previous dual-chamber permanent pacemaker due to severe symptomatic sinus node dysfunction. POSTOPERATIVE DIAGNOSES: 1. Successful extraction of RV pacemaker lead. 2. Successful upgrade to dual-chamber ICD. HISTORY: this is a 47-year-old gentleman who has previous history of symptomatic severe sinus node dysfunction and dual-chamber permanent pacemaker was done in 02/20/2016. The patient developed syncope, nonsustained VT. Cardiac PET showed significant myocardial uptake suggesting severe myocarditis. Sarcoidosis was ruled out. Cardiac MRI could not be done due to metal in the body. He follows with [facility] rare lung disease clinic and the recommendation was to upgrade to a dual-chamber ICD since the risk of sudden cardiac is high in this patient. Echocardiogram shows normal LVEF. ICD implantation is recommended. PROCEDURE PERFORMED: 1. pocket revision. 2. permanent pacemaker generator explantation. 3. chronic RV pacemaker lead extraction. 4. New RV ICD lead implantation. 5. DFT testing. COMPLICATIONS: None. ESTIMATED BLOOD LOSS: 20 mL. SPECIMENS: None. ANESTHESIA: Conscious sedation. ORAL ANTICOAGULATION: None. FLUOROSCOPY TIME: 10.28 minutes FLUOROSCOPY DOSE: 721 MGY. CONTRAST DOSE:none. PROCEDURE DETAILS: After all the questions were answered, an informed consent was taken. All the risks and complication were explained in detail. The patient was brought to the EP lab. The patient's right and left chest was prepped and draped in the usual sterile fashion. A 2-inch horizontal incision was made 1 cm below the clavicle and dissection carried down to the pectoralis fascia. IV antibiotics were administered prior to first incision. pocket revision was done. The old pacemaker and leads were identified and removed from the pocket. Pocket revision was done. A stylette was placed in the RV pacemaker lead. groove was undeployed under fluoroscopic guidance. And then extraction performed. No hemodynamic consequence. Under fluoroscopic guidance, access was gained in the axillary vein and a regular J-wire was placed. We then introduced a sheath into the axillary vein. A ICD lead was inserted. This is a single-coiled ICD lead. The RV lead was inserted across the tricuspid valve to an apical septal portion of the RV. The lead position was checked in [place] and [place] view. The screw was deployed and lead connected to the visual basic programmer. Good sensing and pacing thresholds were obtained. Diaphragmatic pacing was ruled out. The lead was secured with 2-0 Vicryl nonabsorbable sutures. The lead was secured to the underlying muscle and fascia. We then took an ICD generator and the lead was connected to the device in a hermetic fashion. The device and it was placed in the pocket. Aggressive irrigation with normal saline solution was done. Interrogation of the device revealed good integrity of the leads and connection. The wound was closed using 2 layers. The first layer was an interrupted 2-0 Vicryl. The second layer was an uninterrupted 4-0 Vicryl suture. Half inch Steri-Strips and a small dressing was then applied to the wound. DFT testing was done with anesthesia support. The induction mechanism was a T- shock. The first T-shock was at 290 milliseconds at one joule. VF was noted. successful defibrillation with a 25 J shock. Patient tolerated procedure well and did not have any complication Old device was a [employer] pacemaker product number A2 DR Little, IPG A2 01 [facility] , serial number [id number]. Implant date 02/20/2016. Extracted RV lead was a CR DM, product number [id number], lead 507 658 [facility], serial number [id number]. Implant date 02/20/2016. DEVICE INFORMATION: ICD [id number] Ever[employer] [facility] S IS-1/DF 4 GLOB Old RA lead, serial number [id number], length 52, serial number [id number], [employer], implant date 02/20/2016. new RV ICD lead, model number 5777A08, length 62, serial number [id number], [facility]. INTRAOPERATIVE DEVICE TESTING: RV capture threshold 0.4 V at 0.5 ms, impedance 649 ohms, R-wave 16.3. DEVICE INTERROGATION IMMEDIATELY POSTOP: right atrial interrogation: P-wave 3.6 mV, pacing impedance 361 ohms, pacing threshold 1.0 V at 0.4 ms. Right ventricular lead interrogation: R-wave 18.1 mV, impedance 494 ohms, hvb impedance 64 ohms, pacing threshold 0.5 V at 0.4 ms PLAN: The patient will be observed for 23 hours. We will continue with two more dosages of IV antibiotics. We will check a chest x-ray and interrogate the device in the morning. An EKG will be done as well. If everything checks out, the patient will be discharged tomorrow. Homero Valdez MD, RS, CCDS Cardiac Electrophysiology Laurence VALDEZ MD Sep 08, 2018 19:05
--- NOTE | 2018-09-08 19:09 | History & Physicial-Cardiolgy ---
HPI-Cardiology Cardiology Consultation: Date of Consultation 09/08/18 Date of Admission Attending Physician Laurence Valdez MD Admitting Physician Eden Hennessy MD Consulting Physician Laurence VALDEZ MD HPI: Time Seen by a Provider: 12:00 Chief Complaint: Severe chronic myocarditis, nonsustained VT, syncope. this is a 47-year-old gentleman who has previous history of symptomatic severe sinus node dysfunction and dual-chamber permanent pacemaker was done in 02/20/2016. The patient developed syncope, nonsustained VT. Cardiac PET showed significant myocardial uptake suggesting severe myocarditis. Sarcoidosis was ruled out. Cardiac MRI could not be done due to metal in the body. He follows with [facility] rare lung disease clinic and the recommendation was to upgrade to a dual-chamber ICD since the risk of sudden cardiac is high in this patient. Echocardiogram shows normal LVEF. ICD implantation is recommended. Review of Systems-Cardiology Review of Systems Constitutional: As described under HPI; No As described under HPI, No no symptoms reported, No chills, No fever, No lightheadedness Eyes: No As described under HPI, No no symptoms reported, No blindness, No blurred vision, No contact lenses, No drainage, No decreased acuity, No foreign body sensation, No pain, No vision change Ears/Nose/Throat: No As described under HPI, No no symptoms reported, No chronic hearing loss, No ear discharge, No ear pain, No nasal drainage, No ulcerations Respiratory: No no symptoms reported; As described under HPI; No As described under HPI, No cough, No orthopnea, No shortness of breath, No SOB with excertion Cardiovascular: No no symptoms reported; As described under HPI; No As describe d under HPI, No chest pain, No edema, No irregular heart rate, No lightheadedness, No palpitations Gastrointestinal: No no symptoms reported, No As described under HPI, No abdomen distended, No abdominal pain, No blood streaked bowels, No constipation, No diarrhea, No nausea, No vomiting, No stool coloration changes Genitourinary: No As described under HPI, No burning, No dysuria, No discharge, No frequency, No flank pain, No hematuria, No urgency Skin: No rash, No skin related problems, No ulcerations Psychiatric/Neurological: No anxiety, No depression, No seizure, No focal weakness, No syncope Hematologic: No bleeding abnormalities UVL-[id number] Hx Patient Social History Alcohol Use: Denies Use Recreational Drug Use: No Smoking Status: Current Everyday Smoker Former smoker/When Quit: Mar 12, 2002 Type Used: Cigarettes 2nd Hand Smoke Exposure: Yes Recent Foreign Travel: No Recent Infectious Disease Expo: No Immunizations Up To Date Tetanus Booster (TDap): Less than 5yrs Date of Pneumonia Vaccine: Feb 08, 2011 Date of Influenza Vaccine: Nov 15, 2017 Past Medical History PMH As described under Assessment. Allergies and Home Medications Allergies Coded Allergies: Penicillins (Unverified Allergy, Intermediate, N/V, 07/26/18) aspirin (Unverified Allergy, Intermediate, STOMACH ACHE, 07/26/18) adhesive tape (Verified Allergy, Unknown, 07/26/18) latanoprost (Verified Allergy, Unknown, 07/26/18) lisinopril (Verified Allergy, Unknown, 07/26/18) Home Medications Albuterol Sulfate 1 Puff Puff, 2 PUFF IH Q4H PRN for SHORTNESS OF BREATH 1 PUFF = 90 MCG Prescribed by: PHAM BLACKMON on 02/04/18 1411 Alprazolam 1 Mg Tablet, 1 MG PO BID, (Reported) Amlodipine Besylate 10 Mg Tablet, PO DAILY, (Reported) Atorvastatin Calcium 20 Mg Tablet, 20 MG PO DAILY, (Reported) Chlorthalidone 25 Mg Tablet, 25 MG PO DAILY, (Reported) Cholecalciferol (Vitamin D3) 50,000 Unit Capsule, 50,000 UNIT PO WEEK, (Reported) Clonidine HCl 0.2 Mg Tablet, 0.2 MG PO TID, (Reported) Epinephrine 0.3 Mg/0.3 Ml Auto.injct, 0.3 MG IJ UD PRN for ANAPHYLACTIC REACTIONS, (Reported) Gabapentin 300 Mg Capsule, 300 MG PO TID, (Reported) Hydralazine HCl 25 Mg Tablet, 25 MG PO TID, (Reported) Hydrocodone Bit/Acetaminophen 1 Ea Tablet, 1 EA PO Q4H PRN for PAIN-MODERATE Prescribed by: ODILON REEDER on 08/03/18 1321 Losartan Potassium 100 Mg Tablet, 100 MG PO DAILY, (Reported) Metoprolol Succinate 200 Mg Tab.er.24h, 200 MG PO DAILY, (Reported) Nitroglycerin 0.4 Mg Tab.subl, 0.4 MG SL PRN, (Reported) Ondansetron HCl 4 Mg Tablet, 4 MG PO PRN, (Reported) Timolol Maleate 5 Ml Drops, 1 DROP OS BID, (Reported) Topiramate 100 Mg Tablet, 100 MG PO BID, (Reported) Patient Home Medication List Home Medication List Reviewed: Yes Physical Exam-Cardiology Physical Exam Vital Signs/I&O 09/08/18 12:17 Temp 98.0 Pulse 69 Resp 19 B/P (MAP) 146/107 (120) Pulse Ox 100 O2 Delivery Room Air Capillary Refill : Constitutional: appears stated age, AAO x 3; No apparent distress; well- developed, well-nourished HEENT: PERRL; No normal ENT inspection, No TMs normal, No pharynx normal, No scleral icterus (R), No scleral icterus (L), No pale conjunctivae (R), No pale conjunctivae (L), No photophobia, No TM abnormal (R), No TM abnormal (L), No pharyngeal erythema, No tonsillar exudate, No other, No discharge, No EOMI; hearing is well preserved; No hard of hearing; oral hygience is good; No ulceration, No xanthelasmas are seen Neck: No non-tender, No full range of motion, No supple, No normal inspection, No carotid bruit, No limited range of motion, No lymphadenopathy (R), No lymphadenopathy (L), No tender lateral, No tender midline, No thyromegaly, No other; carotid pulses are 2 + bilaterally; No with good upstrokes Respiratory: No accessory muscle use, No respiratory distress, No chest tender, No chest expansion is symmetric; chest is bilaterally symmetric; No lungs clear to percussion; lungs clear to auscultation; No crackles, No rhonchi, No rales, No stridor, No wheezing, No pleural rub, No other Cardiovascular: regular rate-rhythm; No irregularly irregular, No extra beats, No parasternal heave is noted, No JVD, No edema, No bradycardia, No tachycardia, No point of maximal impulse, No cardiac thrills are palpable; S1 and S2; No gallop/S3, No gallop/S4, No diastolic murmur, No systolic murmur, No friction rub, No click, No other Gastrointestinal: No tender, No soft, No round, No distended, No pulsatile mass, No organomegaly, No guarding, No rebound, No tenderness, No hernia, No mass, No audible bowel sounds, No abnormal bowel sounds, No abdominal bruits, No spleenomegaly, No other Rectal: deferred Extremities: No normal range of motion, No non-tender, No normal inspection, No pedal edema, No calf tenderness, No normal capillary refill, No pelvis stable, No calf tenderness, No inflammation, No pedal edema, No slow capillary refill, No swelling, No other, No abrasion, No clubbing, No cyanosis, No ecchymosis, No laceration, No no lower extremity edema bilateral, No significant edema, No tenderness, No wound Neurologic/Psychiatric: alert, oriented x 3, power is 5/5 both on sides Skin: No rash, No ulcerations Data Review Labs Laboratory Tests 09/08/18 12:40: White Blood Count 9.0, Red Blood Count 5.24, Hemoglobin 15.0, Hematocrit 45, Mean Corpuscular Volume 85, Mean Corpuscular Hemoglobin 29, Mean Corpuscular Hemoglobin Concent 34, Red Cell Distribution Width 13.5, Platelet Count 168, Mean Platelet Volume 12.5H, Prothrombin Time 13.9, INR Comment 1.0, Activated Partial Thromboplast Time 32, Sodium Level 140, Potassium Level 4.1, Chloride Level 104, Carbon Dioxide Level 25, Anion Gap 11, Blood Urea Nitrogen 18, Creatinine 1.00, Estimat Glomerular Filtration Rate > 60, BUN/Creatinine Ratio 18, Glucose Level 107H, Calcium Level 9.6, Corrected Calcium 9.7, Total Bilirubin 0.8, Aspartate Amino Transf (AST/SGOT) 32, Alanine Aminotransferase (ALT/SGPT) 28, Alkaline Phosphatase 94, Total Protein 7.2, Albumin 3.9 ECG Impression ECG Initial ECG Rhythm: Normal Sinus A/P-Cardiology Assessment/Admission Diagnosis chronic severe myocarditis, nonsustained VT, syncope, Severe symptomatic sinus node dysfunction, previous dual-chamber permanent pacemaker. Admission Status: Observation Plan RV lead extraction, Upgrade to dual-chamber ICD. Laurence VALDEZ MD Sep 08, 2018 19:09
[2018-09-08] MEDS ORDERED: PATIENT MAY USE OWN MEDS, ALL PO SCH (19:15)
--- NOTE | 2018-09-08 19:27 | Diagnostic Imaging Report ---
INDICATION: Post pacemaker FINDINGS: Battery for the device overlies the left chest. There is no pneumothorax. There is no overt failure pattern, focal infiltrate or effusion. IMPRESSION: No acute appearing abnormality post pacemaker placement Dictated by: Dictated on workstation # [id number]
[2018-09-08] MEDS ORDERED: CATHETER FLUSH 10 ML SYR IV PRN (20:00)
[2018-09-08] MEDS ORDERED: ONDANSETRON 4 MG (ZOFRAN) ORAL DISSOLVE TAB PO PRN (20:15)
[2018-09-08] MEDS: HYDROcodone/APAP 7.5 MG/325 MG (LORTAB, LORCET PLUS) TABLET PO PRN (20:28)
[2018-09-09] VITALS: BP 145/69
[2018-09-09] MEDS: HYDROcodone/APAP 7.5 MG/325 MG (LORTAB, LORCET PLUS) TABLET PO PRN ×2 (00:33→04:33)
[2018-09-09] MEDS: VANCOMYCIN INJECTION 1,000 MG in NS (IVPB) 250 ML IV SCH ×2 (00:38→08:06)
[2018-09-09 04:00] VITALS: BP 156/106
[2018-09-09 05:26] LABS: HEMOGLOBIN 13.8 G/DL (13.3-17.7); MEAN PLATELET VOLUME 12.9 FL (7.4-10.4); RED CELL DISTRIBUTION WIDTH 13.4 % (10.0-14.5)
[2018-09-09 05:44] LABS: ALANINE AMINOTRANSFERASE 25 U/L (0-55); ALBUMIN 3.5 GM/DL (3.2-4.5); ALKALINE PHOSPHATASE 85 U/L (40-136); BILIRUBIN,TOTAL 0.5 MG/DL (0.1-1.0); BUN/CREATININE RATIO 21; CALCIUM 9.1 MG/DL (8.5-10.1); CARBON DIOXIDE 20 MMOL/L (21-32); CHLORIDE 107 MMOL/L (98-107); CREATININE SERUM 0.84 MG/DL (0.60-1.30); GFR ESTIMATED > 60; GLUCOSE 141 MG/DL (70-105); POTASSIUM 4.2 MMOL/L (3.6-5.0); SODIUM 136 MMOL/L (135-145); TOTAL PROTEIN 6.6 GM/DL (6.4-8.2)
[2018-09-09 08:00] VITALS: BP 160/84
[2018-09-09] MEDS ORDERED: CLIN300C11 PO (09:17)
--- NOTE | 2018-09-09 09:23 | NUR ---
Initial visit: The pt is [place] however does not desire communion at this time. He said his parents plan to visit him today, and their presence is a comfort to him.
--- NOTE | 2018-09-09 19:05 | Cardiology Discharge Summary ---
Diagnosis/Chief Complaint Date of Admission 09/08/2018 Date of Discharge 09/09/2018 Admission Diagnosis Nonsustained VT, syncope, severe myocarditis Final/Discharge Diagnosis Nonsustained VT, syncope, severe myocarditis, status post ICD implantation Chief Complaint/HPI Chief Complaint/HPI this is a 47-year-old gentleman who has previous history of symptomatic severe sinus node dysfunction and dual-chamber permanent pacemaker was done in 02/20/2016. The patient developed syncope, nonsustained VT. Cardiac PET showed significant myocardial uptake suggesting severe myocarditis. Sarcoidosis was ruled out. Cardiac MRI could not be done due to metal in the body. He follows with [facility] rare lung disease clinic and the recommendation was to upgrade to a dual-chamber ICD since the risk of sudden cardiac is high in this patient. Echocardiogram shows normal LVEF. ICD implantation is recommended. Discharge Summary Procedures 1. RV pacemaker lead extraction. 2. Pocket revision. 3. Pacemaker generator removal. 4. New RV ICD lead implantation. Discharge Physical Examination Normal upper chest examination with no evidence of infection or hematoma. Hospital Course Was the Problem List Reviewed?: Yes Chest x-ray postprocedure did not show any pneumothorax. Normal device interrogation this morning. Normal telemetry overnight. Discussion & Recommendations Discussion Discharge instructions took over 30 minutes to complete. discharge instructions were discussed at length with the patient. The procedure was explained. Follow up appt.: Wound check in one week with RN. Dr. Courtney Kat device interrogation in one month. Dicharge Diet: Regular Diet Activity as Tolerated: Yes Home Medications Reviewed patient Home Medication Reconciliation performed by pharmacy medication reconciliations topography technician and/or nursing. Patients Allergies have been reviewed. Discharge Home Medications: Reviewed and agree with Discharge Medication list on patient's Discharge Instruction sheet Condition at discharge Stable. Instructions to patient/family Discussed at length with the patient. Laurence PANG MD Sep 09, 2018 19:05
== END 2018-09-09 10:10 | disposition home or self-care (01) ==
LOC: CATH 11:37 → ICU 19:39 → CATH 09-09 10:10
PROVIDERS: ATTEND Internal Medicine Interventional Cardiology
DX: I47.2 Ventricular tachycardia (principal); I49.5 Sick sinus syndrome; R55 Syncope and collapse; R53.1 Weakness; H40.9 Unspecified glaucoma; I10 Essential (primary) hypertension; H54.10 Blindness, one eye, low vision other eye, unspecified eyes; E78.5 Hyperlipidemia, unspecified; F17.210 Nicotine dependence, cigarettes, uncomplicated; Z95.810 Presence of automatic (implantable) cardiac defibrillator; Z88.0 Allergy status to penicillin; Z79.899 Other long term (current) drug therapy
CPT/HCPCS: 33223; 33233; 33234; 33249; 36415; 71045; 80053; 85027; 85610; 85730; 87081; 93005; 93641

== ENCOUNTER 2018-10-15 18:09 | Emergency (ER) | payer MEDICAID ==
[~2018-10-15] VITALS: Ht 170.2 cm; Wt 136.1 kg
[2018-10-15 18:20] LABS: BASOPHILS % (AUTO) 0 % (0-10); EOSINOPHILS # (AUTO) 0.1 10^3/uL (0.0-0.3); EOSINOPHILS % (AUTO) 1 % (0-10); HEMATOCRIT 44 % (40-54); HEMOGLOBIN 14.5 G/DL (13.3-17.7); LYMPHOCYTES # (AUTO) 2.6 X 10^3 (1.0-4.0); LYMPHOCYTES % (AUTO) 24 % (12-44); MEAN CORPUSCULAR HEMOGLOBIN 28 PG (25-34); MEAN CORPUSCULAR HGB CONC 33 G/DL (32-36); MEAN CORPUSCULAR VOLUME 87 FL (80-99); MEAN PLATELET VOLUME 11.5 FL (7.4-10.4); MONOCYTES # (AUTO) 1.1 X 10^3 (0.0-1.0); MONOCYTES % (AUTO) 10 % (0-12); NEUTROPHILS % (AUTO) 65 % (42-75); PLATELET COUNT 176 10^3/uL (130-400); RED CELL DISTRIBUTION WIDTH 13.8 % (10.0-14.5); WHITE BLOOD COUNT 10.8 10^3/uL (4.3-11.0)
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
[2018-10-15 18:32] LABS: PROTHROMBIN TIME PATIENT 13.7 SEC (12.2-14.7)
[2018-10-15 18:39] LABS: ALANINE AMINOTRANSFERASE 20 U/L (0-55); ALBUMIN 3.9 GM/DL (3.2-4.5); ALKALINE PHOSPHATASE 81 U/L (40-136); BILIRUBIN,TOTAL 0.5 MG/DL (0.1-1.0); BUN/CREATININE RATIO 15; CALCIUM 9.2 MG/DL (8.5-10.1); CARBON DIOXIDE 25 MMOL/L (21-32); CHLORIDE 106 MMOL/L (98-107); CREATININE SERUM 1.21 MG/DL (0.60-1.30); GFR ESTIMATED > 60; GLUCOSE 86 MG/DL (70-105); POTASSIUM 3.7 MMOL/L (3.6-5.0); SODIUM 143 MMOL/L (135-145); TOTAL PROTEIN 7.2 GM/DL (6.4-8.2)
--- NOTE | 2018-10-15 19:03 | Diagnostic Imaging Report ---
EXAMINATION: Single view of the chest. INDICATION: Left-sided chest pain. COMPARISON: Prior study from 09/08/2018. FINDINGS: Cardiac pacemaker is noted. Lung volumes have diminished with some increased basilar atelectasis. No significant effusion is evident. There is no pneumothorax. Mediastinal contours appear appropriate and the central pulmonary vascularity appears normal. IMPRESSION: 1. Low lung volumes with bibasilar atelectasis. 2. Central pulmonary vascularity appears appropriate. Dictated by: Dictated on workstation # [id number]
[2018-10-15 19:47] VITALS: BP 105/63
== END 2018-10-15 19:52 | disposition home or self-care (01) ==
LOC: EDUNIT# 18:09 → ER 18:12
DX: R07.9 Chest pain, unspecified (principal); G47.30 Sleep apnea, unspecified; I10 Essential (primary) hypertension; I42.9 Cardiomyopathy, unspecified; G43.909 Migraine, unspecified, not intractable, without status migrainosus; M19.011 Primary osteoarthritis, right shoulder; F41.9 Anxiety disorder, unspecified; F43.10 Post-traumatic stress disorder, unspecified; F91.3 Oppositional defiant disorder; Z88.0 Allergy status to penicillin; Z88.6 Allergy status to analgesic agent; Z88.8 Allergy status to other drugs, medicaments and biological substances; Z87.891 Personal history of nicotine dependence; Z95.0 Presence of cardiac pacemaker; Z86.018 Personal history of other benign neoplasm
CPT/HCPCS: 36415; 71045; 80053; 83735; 83874; 83880; 84484; 85025; 85379; 85610; 85730; 93005

== ENCOUNTER → 2018-11-16 | Outpatient (CLI) | payer MEDICAID ==
[2018-11-16 15:11] LABS: HEMOGLOBIN 14.8 G/DL (13.3-17.7); MEAN PLATELET VOLUME 12.2 FL (7.4-10.4); RED CELL DISTRIBUTION WIDTH 13.1 % (10.0-14.5); WHITE BLOOD COUNT 9.1 10^3/uL (4.3-11.0)
[2018-11-16 15:32] LABS: BUN/CREATININE RATIO 13; CALCIUM 9.6 MG/DL (8.5-10.1); CARBON DIOXIDE 25 MMOL/L (21-32); CHLORIDE 104 MMOL/L (98-107); CREATININE SERUM 1.02 MG/DL (0.60-1.30); GFR ESTIMATED > 60; GLUCOSE 98 MG/DL (70-105); MAGNESIUM 1.9 MG/DL (1.6-2.4); POTASSIUM 3.6 MMOL/L (3.6-5.0); SODIUM 139 MMOL/L (135-145)
== END ==
LOC: LAB 14:48
PROVIDERS: ATTEND Student in an Organized Health Care Education/Training Program
DX: I49.5 Sick sinus syndrome (principal)
CPT/HCPCS: 36415; 80048; 83735; 85027

== ENCOUNTER 2018-11-23 21:55 | Emergency (ER) | payer MEDICAID ==
[~2018-11-23] VITALS: Ht 170.2 cm; Wt 146.4 kg
[2018-11-23] MEDS ORDERED: DOXY100C2 (22:07)
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
[2018-11-23 22:40] VITALS: BP 133/82
--- NOTE | 2018-11-24 07:44 | Diagnostic Imaging Report ---
INDICATION: Fall. Comparison with 10/15/2018. FINDINGS: PA and lateral chest. Lungs are well-aerated and clear. There is no air trapping. Heart is upper limits of normal. ICD pacer on the left remains in good position. No pneumothorax or pleural effusion. No bony fractures noted. IMPRESSION: No acute abnormalities. Dictated by: Dictated on workstation # [id number]
== END 2018-11-23 22:39 | disposition home or self-care (01) ==
LOC: EDUNIT# 21:55 → ER 21:56
DX: Z04.3 Encounter for examination and observation following other accident (principal); Z95.0 Presence of cardiac pacemaker; F17.210 Nicotine dependence, cigarettes, uncomplicated; I10 Essential (primary) hypertension; I42.9 Cardiomyopathy, unspecified; G43.909 Migraine, unspecified, not intractable, without status migrainosus; F41.9 Anxiety disorder, unspecified; F43.10 Post-traumatic stress disorder, unspecified; F91.3 Oppositional defiant disorder; Z85.828 Personal history of other malignant neoplasm of skin; Z88.0 Allergy status to penicillin; Z79.82 Long term (current) use of aspirin; Z88.8 Allergy status to other drugs, medicaments and biological substances; W19.XXXA Unspecified fall, initial encounter; Y92.009 Unspecified place in unspecified non-institutional (private) residence as the place of occurrence of the external cause
CPT/HCPCS: 71046

== ENCOUNTER 2019-02-08 17:32 | Emergency (ER) | payer MEDICAID ==
[~2019-02-08] VITALS: Ht 170 cm; Wt 143.7 kg
[~2019-02-08 17:32] MED LIST changes: +DOXY100C2
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
--- NOTE | 2019-02-08 19:20 | Diagnostic Imaging Report ---
INDICATION: Cough COMPARISON: 11/23/2018 FINDINGS: Frontal and lateral views of the chest demonstrate minimal atelectasis in the right base. The left lung is clear. The heart is prominent but stable. The pacemaker is in good position. There is no pneumothorax or large effusion. Osseous structures are stable. IMPRESSION: Minimal atelectasis right base Dictated by: Dictated on workstation # [id number]
[2019-02-08] MEDS ORDERED: PRD20T PO ×2 (19:42→20:19)
[2019-02-08] MEDS ORDERED: AZIT250T PO ×2 (20:13→20:19)
[2019-02-08 20:15] VITALS: BP 158/107
[2019-02-08] MEDS ORDERED: AZITHROMYCIN 250 MG TAB (ZITHROMAX) PO ONE (20:15)
== END 2019-02-08 20:15 | disposition home or self-care (01) ==
LOC: EDUNIT# 17:32 → ER 17:34
DX: M54.5 Low back pain (principal); M54.6 Pain in thoracic spine; J06.9 Acute upper respiratory infection, unspecified; I10 Essential (primary) hypertension; G43.909 Migraine, unspecified, not intractable, without status migrainosus; F41.9 Anxiety disorder, unspecified; F43.10 Post-traumatic stress disorder, unspecified; F91.3 Oppositional defiant disorder; F17.210 Nicotine dependence, cigarettes, uncomplicated; Z85.828 Personal history of other malignant neoplasm of skin; Z95.810 Presence of automatic (implantable) cardiac defibrillator; Z88.6 Allergy status to analgesic agent; Z88.0 Allergy status to penicillin; Z88.8 Allergy status to other drugs, medicaments and biological substances
CPT/HCPCS: 71046; 87804

== ENCOUNTER 2019-02-13 18:26 | Emergency (ER) | payer MEDICAID ==
[~2019-02-13] VITALS: Ht 170.2 cm; Wt 136.1 kg
[~2019-02-13 18:26] MED LIST changes: +AZIT250T PO; +PRD20T PO
[2019-02-13] MEDS ORDERED: cefTRIAXone 1,000 MG/2.86 ml vial (IM ONLY) IM SCH (19:00)
[2019-02-13] MEDS ORDERED: LIDOCAINE 1% INJ 20 ML 20 ML VIAL INJ ONE (19:00)
[2019-02-13] MEDS ORDERED: AZITHROMYCIN 250 MG TAB (ZITHROMAX) PO SCH (19:00)
[2019-02-13] MEDS ORDERED: DOXY100T2 PO (19:03)
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
[2019-02-13 19:05] LABS: BILIRUBIN,URINE NEGATIVE (NEGATIVE); CLARITY,URINE CLEAR; COLOR,URINE YELLOW; GLUCOSE, URINE (UA) NEGATIVE (NEGATIVE); KETONES,URINE NEGATIVE (NEGATIVE); LEUKOCYTE ESTERASE ,URINE NEGATIVE (NEGATIVE); NITRITE,URINE NEGATIVE (NEGATIVE); PH,URINE 5.5 (5-9); PROTEIN,URINE NEGATIVE (NEGATIVE)
[2019-02-13 19:13] LABS: BACTERIA,URINE NEGATIVE /HPF; SQUAMOUS EPITHELIAL CELL,UR RARE /HPF
[2019-02-13 19:18] VITALS: BP 187/101
== END 2019-02-13 19:18 | disposition home or self-care (01) ==
LOC: EDUNIT# 18:26 → ER 18:27
DX: R30.0 Dysuria (principal); I10 Essential (primary) hypertension; G43.909 Migraine, unspecified, not intractable, without status migrainosus; F41.9 Anxiety disorder, unspecified; F43.10 Post-traumatic stress disorder, unspecified; F91.3 Oppositional defiant disorder; M19.011 Primary osteoarthritis, right shoulder; G47.30 Sleep apnea, unspecified; F17.210 Nicotine dependence, cigarettes, uncomplicated; Z85.828 Personal history of other malignant neoplasm of skin; Z95.810 Presence of automatic (implantable) cardiac defibrillator; Z99.89 Dependence on other enabling machines and devices; Z88.0 Allergy status to penicillin; Z79.82 Long term (current) use of aspirin; Z88.8 Allergy status to other drugs, medicaments and biological substances
CPT/HCPCS: 36415; 81000; 87491; 87591; 96372; 99284

== ENCOUNTER → 2019-04-17 | Outpatient (CLI) | payer MEDICAID ==
[~2019-04-17] MED LIST changes: +D-ME473S11 PO; -D-ME473S38 PO; -DILT240C PO; +DILT240C91 PO; +DOXY100T2 PO; +ONDA-105 PO; -ONDA4TAB10 PO
[2019-04-17 13:58] LABS: CHOLESTEROL 195 MG/DL (< 200); HDL CHOLESTEROL 38 MG/DL (40-60); TRIGLYCERIDES 232 MG/DL (<150); VLDL CHOLESTEROL 46 MG/DL (5-40)
== END ==
LOC: LAB 13:19
DX: Z00.00 Encounter for general adult medical examination without abnormal findings (principal)
CPT/HCPCS: 36415; 80061; 83036

== ENCOUNTER → 2019-04-18 | Outpatient (CLI) | payer MEDICAID ==
--- NOTE | 2019-04-18 14:03 | Diagnostic Imaging Report ---
INDICATION: ICD IN PLACE Z95.810 COMPARISON: 02/08/2019. FINDINGS: Frontal and lateral views of the chest demonstrate normal heart size and pulmonary vascularity. The lungs are clear. There are no signs of infiltrate, pleural effusions or pneumothoraces. The visualized osseous structures show no acute abnormalities. Left-sided AICD is again noted and is stable in position. IMPRESSION: 1. No acute process. No signs of infiltrates, effusions or pneumothoraces. Dictated by: Dictated on workstation # [id number]
== END ==
LOC: RAD 13:44
PROVIDERS: ATTEND Student in an Organized Health Care Education/Training Program
DX: Z98.890 Other specified postprocedural states (principal); Z95.810 Presence of automatic (implantable) cardiac defibrillator
CPT/HCPCS: 71046

== ENCOUNTER 2020-02-19 04:23 | Emergency (ER) | payer MEDICAID ==
[~2020-02-19] VITALS: Ht 170.2 cm; Wt 136.4 kg
[~2020-02-19 04:23] MED LIST changes: +AMLO-251 PO; -AMLO10TA7 PO; -CLIN300C11 PO; +CLIN300C12 PO; +CLN.1T; +CLN.2T PO; -CLON0.1T; -CLON0.2T PO
[2020-02-19] MEDS ORDERED: ONDANSETRON 4 MG/2 ML (SDV) Z0FRAN IVP ONE (04:45)
[2020-02-19] MEDS ORDERED: LACTATED RINGERS 1,000 ML IV ONE (04:45)
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
[2020-02-19 04:56] LABS: BASOPHILS % (AUTO) 0 % (0-10); EOSINOPHILS # (AUTO) 0.1 10^3/uL (0.0-0.3); EOSINOPHILS % (AUTO) 1 % (0-10); HEMATOCRIT 48 % (40-54); HEMOGLOBIN 15.7 g/dL (13.3-17.7); LYMPHOCYTES # (AUTO) 1.6 10^3/uL (1.0-4.0); LYMPHOCYTES % (AUTO) 14 % (12-44); MEAN CORPUSCULAR HEMOGLOBIN 28 pg (25-34); MEAN CORPUSCULAR HGB CONC 33 g/dL (32-36); MEAN CORPUSCULAR VOLUME 87 fL (80-99); MEAN PLATELET VOLUME 13.1 fL (9.0-12.2); MONOCYTES # (AUTO) 0.7 10^3/uL (0.0-1.0); MONOCYTES % (AUTO) 6 % (0-12); NEUTROPHILS # (AUTO) 8.5 10^3/uL (1.8-7.8); NEUTROPHILS % (AUTO) 78 % (42-75); PLATELET COUNT 211 10^3/uL (130-400); WHITE BLOOD COUNT 10.8 10^3/uL (4.3-11.0)
[2020-02-19 05:06] LABS: ALBUMIN 4.2 GM/DL (3.2-4.5); CHLORIDE 103 MMOL/L (98-107); POTASSIUM 4.7 MMOL/L (3.6-5.0); SODIUM 138 MMOL/L (135-145)
[2020-02-19 05:08] LABS: AMYLASE 47 U/L (25-125); CALCIUM 9.6 MG/DL (8.5-10.1)
[2020-02-19 05:09] LABS: GLUCOSE 110 MG/DL (70-105); INR 1.1 (0.8-1.4); PROTHROMBIN TIME PATIENT 14.9 SEC (12.2-14.7); TOTAL PROTEIN 8.8 GM/DL (6.4-8.2)
[2020-02-19 05:10] LABS: CARBON DIOXIDE 22 MMOL/L (21-32)
[2020-02-19 05:11] LABS: BILIRUBIN,TOTAL 0.9 MG/DL (0.1-1.0)
[2020-02-19 05:12] LABS: ALKALINE PHOSPHATASE 106 U/L (40-136)
[2020-02-19 05:13] LABS: GFR ESTIMATED > 60
[2020-02-19 05:14] LABS: BUN/CREATININE RATIO 11
[2020-02-19 05:15] LABS: MAGNESIUM 2.2 MG/DL (1.6-2.4)
[2020-02-19 05:16] LABS: ALANINE AMINOTRANSFERASE 28 U/L (0-55)
[2020-02-19 05:17] LABS: LIPASE 24 U/L (8-78)
[2020-02-19 05:18] LABS: ERYTHROCYTE SEDIMENTATION RATE 5 MM/HR (0-15)
[2020-02-19 06:31] LABS: BILIRUBIN,URINE NEGATIVE (NEGATIVE); CLARITY,URINE CLEAR; COLOR,URINE YELLOW; GLUCOSE, URINE (UA) NEGATIVE (NEGATIVE); KETONES,URINE 2+ (NEGATIVE); LEUKOCYTE ESTERASE ,URINE NEGATIVE (NEGATIVE); NITRITE,URINE NEGATIVE (NEGATIVE); PH,URINE 5.5 (5-9); PROTEIN,URINE NEGATIVE (NEGATIVE)
--- NOTE | 2020-02-19 06:43 | Diagnostic Imaging Report ---
PROCEDURE: CT abdomen and pelvis with contrast. TECHNIQUE: Multiple contiguous axial images were obtained through the abdomen and pelvis after administration of intravenous contrast. Auto Exposure Controls were utilized during the CT exam to meet ALARA standards for radiation dose reduction. All CT scans use one or more of the following dose optimizing techniques: automated exposure control, MA and/or KvP adjustment based on patient size and exam type or iterative reconstruction. INDICATION: Nausea and vomiting. COMPARISON: None. FINDINGS: The lung bases are clear. There is no infiltrate. There is a small hiatal hernia. The gallbladder, solid organs, vascular structures and bowel are grossly unremarkable. The appendix is not seen with certainty. There is no inflammatory process within the abdomen or pelvis. The prostate is normal. Urinary bladder unremarkable. There is no inflammatory process. There is no free air, free fluid or lymphadenopathy. Osseous structures are grossly unremarkable. IMPRESSION: Small hiatal hernia otherwise negative CT abdomen and pelvis. Dictated by: Dictated on workstation # [id number]
[2020-02-19 06:50] LABS: AMORPHOUS SEDIMENT,UR RARE AMOR URATES /LPF; BACTERIA,URINE NEGATIVE /HPF; HYALINE CASTS, URINE 0-2 /LPF; SQUAMOUS EPITHELIAL CELL,UR 0-2 /HPF; WBC,URINE 0-2 /HPF
[2020-02-19 07:06] LABS: AMPHETAMINE SCREEN, URINE NEGATIVE (NEGATIVE); BARBITURATE SCREEN URINE NEGATIVE (NEGATIVE); BENZODIAZEPINES SCREEN URINE POSITIVE (NEGATIVE); CANNABINOID SCREEN, URINE NEGATIVE (NEGATIVE); COCAINE SCREEN URINE NEGATIVE (NEGATIVE); METHADONE STAT NEGATIVE (NEGATIVE); METHAMPHETAMINE SCREEN URINE S NEGATIVE (NEGATIVE); OPIATE SCREEN URINE NEGATIVE (NEGATIVE); OXYCODONE STAT NEGATIVE (NEGATIVE); PROPOXYPHENE STAT NEGATIVE (NEGATIVE); TRICYCLIC ANTIDEPRESSANTS SCRE NEGATIVE (NEGATIVE)
[2020-02-19] MEDS ORDERED: DICY20TA10 PO (07:07)
[2020-02-19] MEDS ORDERED: ONDA8TAB13 PO (07:07)
[2020-02-19 07:12] VITALS: BP 159/99
== END 2020-02-19 07:12 | disposition home or self-care (01) ==
LOC: EDUNIT# 04:23 → ER 04:25
DX: K52.9 Noninfective gastroenteritis and colitis, unspecified (principal); I10 Essential (primary) hypertension; E78.00 Pure hypercholesterolemia, unspecified; G47.30 Sleep apnea, unspecified; F32.9 Major depressive disorder, single episode, unspecified; F41.9 Anxiety disorder, unspecified; G43.909 Migraine, unspecified, not intractable, without status migrainosus; E66.9 Obesity, unspecified; Z68.42 Body mass index [BMI] 45.0-49.9, adult; Z87.891 Personal history of nicotine dependence; Z77.22 Contact with and (suspected) exposure to environmental tobacco smoke (acute) (chronic); Z99.89 Dependence on other enabling machines and devices; Z95.810 Presence of automatic (implantable) cardiac defibrillator; Z88.0 Allergy status to penicillin; Z88.6 Allergy status to analgesic agent; Z88.8 Allergy status to other drugs, medicaments and biological substances; Z85.828 Personal history of other malignant neoplasm of skin; Z20.822 Contact with and (suspected) exposure to COVID-19
CPT/HCPCS: 74177; 80053; 80306; 81000; 82150; 83615; 83690; 83735; 84145; 85025; 85610; 85652; 85730; 86141; 87804; 93041; G0480; U0002; 36415; 80320; 87635

== ENCOUNTER 2021-08-21 17:07 | Emergency (ER) | payer MEDICAID ==
[~2021-08-21] VITALS: Ht 170.1 cm; Wt 130.6 kg
[~2021-08-21 17:07] MED LIST changes: +CLIN-144 PO; -CLIN300C12 PO; +DICY20TA PO; +DOCU-164 PO; -DOXY100C2; +DOXY100C5; +MAGN296S71 PO; +ONDA8TAB13 PO; -OXYC-471 PO; +OXYC1TAB11 PO; -SULF1TAB35 PO; +SULF1TAB38 PO
[2021-08-21 17:39] VITALS: BP 141/101
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
== END 2021-08-21 18:30 | disposition home or self-care (01) ==
LOC: EDUNIT# 17:07 → ER 17:11
DX: M79.10 Myalgia, unspecified site (principal); G47.30 Sleep apnea, unspecified; E66.9 Obesity, unspecified; Z68.42 Body mass index [BMI] 45.0-49.9, adult; Z99.89 Dependence on other enabling machines and devices; Z86.018 Personal history of other benign neoplasm; W11.XXXA Fall on and from ladder, initial encounter
CPT/HCPCS: 99281

== ENCOUNTER 2022-10-12 16:50 | Emergency (ER) | payer MEDICAID ==
[~2022-10-12] VITALS: Ht 170.2 cm; Wt 133.9 kg
[~2022-10-12 16:50] MED LIST changes: +ALBU8.5H6 IH; -D-ME473S11 PO; -LOSA100T57 PO; +LOSA100T58 PO; +MAGN296S68 PO; -MAGN296S71 PO; +PROM473S15 PO; -RT-ALBUINH IH; +TIMO5DRO16 OS; -TIMO5DRO5 OS; +TOPI-241 PO; -TOPI50TA13 PO
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
[2022-10-12] MEDS ORDERED: RX-MOLNUPIRAVIR (EUA) 200 MG #40 CAPSULES PO ONE (18:34)
[2022-10-12 18:42] VITALS: BP 124/88
[2022-10-12] MEDS ORDERED: RX-MOLNUPIRAVIR (EUA) 200 MG #40 CAPSULES PO SCH (21:00)
== END 2022-10-12 18:42 | disposition home or self-care (01) ==
LOC: EDUNIT# 16:50 → ER 16:53
DX: U07.1 COVID-19 (principal); R50.9 Fever, unspecified; R05.9 Cough, unspecified; R09.81 Nasal congestion; G47.30 Sleep apnea, unspecified; E66.01 Morbid (severe) obesity due to excess calories; F17.210 Nicotine dependence, cigarettes, uncomplicated; Z99.89 Dependence on other enabling machines and devices; Z68.42 Body mass index [BMI] 45.0-49.9, adult
CPT/HCPCS: 87636; 99283

== ENCOUNTER 2022-10-14 10:23 | Emergency (ER) | payer MEDICAID ==
[2022-10-14 11:06] LABS: BASOPHILS # (AUTO) 0.1 10^3/uL (0.0-0.1); BASOPHILS % (AUTO) 1 % (0-10); EOSINOPHILS # (AUTO) 0.1 10^3/uL (0.0-0.3); EOSINOPHILS % (AUTO) 2 % (0-10); HEMATOCRIT 55 % (40-54); HEMOGLOBIN 18.4 g/dL (13.3-17.7); LYMPHOCYTES # (AUTO) 1.9 10^3/uL (1.0-4.0); LYMPHOCYTES % (AUTO) 22 % (12-44); MEAN CORPUSCULAR HEMOGLOBIN 29 pg (25-34); MEAN CORPUSCULAR HGB CONC 34 g/dL (32-36); MEAN CORPUSCULAR VOLUME 86 fL (80-99); MEAN PLATELET VOLUME 12.8 fL (9.0-12.2); MONOCYTES # (AUTO) 0.8 10^3/uL (0.0-1.0); MONOCYTES % (AUTO) 10 % (0-12); NEUTROPHILS # (AUTO) 5.4 10^3/uL (1.8-7.8); NEUTROPHILS % (AUTO) 66 % (42-75); PLATELET COUNT 186 10^3/uL (130-400); WHITE BLOOD COUNT 8.3 10^3/uL (4.3-11.0)
[2022-10-14 11:11] LABS: PROTHROMBIN TIME PATIENT 13.6 SEC (12.2-14.7)
[2022-10-14] MEDS ORDERED: NS IV 1000 ML 1,000 ML IV SCH ×2 (11:15)
--- NOTE | 2022-10-14 11:22 | Diagnostic Imaging Report ---
CHEST 1 VIEW, AP/PA ONLY Indication: Covid positive with dizziness and congestion. Comparison: 04/18/2019 Findings: No focal airspace disease in the visualized lungs. No pleural effusion or pneumothorax. Normal heart size. Stable left pectoral transvenous pacemaker/ICD. Impression: 1. No acute cardiopulmonary process by portable radiography. Dictated by: Dictated on workstation # [id number]
[2022-10-14 11:26] LABS: ALBUMIN 4.2 GM/DL (3.2-4.5); BILIRUBIN,TOTAL 0.8 MG/DL (0.1-1.0); CALCIUM 9.4 MG/DL (8.5-10.1); CREATININE SERUM 1.56 MG/DL (0.60-1.30); POTASSIUM 4.4 MMOL/L (3.6-5.0); TOTAL PROTEIN 8.9 GM/DL (6.4-8.2)
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
[2022-10-14] MEDS ORDERED: KETOROLAC INJ 15 MG/ML VIAL IVP ONE (14:45)
[2022-10-14 14:47] VITALS: BP 115/65
== END 2022-10-14 14:47 | disposition home or self-care (01) ==
LOC: EDUNIT# 10:23 → ER 10:26
DX: U07.1 COVID-19 (principal); R42 Dizziness and giddiness; I95.89 Other hypotension; I10 Essential (primary) hypertension; E86.0 Dehydration; G47.30 Sleep apnea, unspecified; E66.9 Obesity, unspecified; C76.51 Malignant neoplasm of right lower limb; R94.4 Abnormal results of kidney function studies; F17.210 Nicotine dependence, cigarettes, uncomplicated; Z99.81 Dependence on supplemental oxygen; Z68.42 Body mass index [BMI] 45.0-49.9, adult
CPT/HCPCS: 36415; 71045; 80053; 83605; 85025; 85610; 85730; 87040

== ENCOUNTER 2022-11-25 20:23 | Emergency (ER) | payer MEDICAID ==
[~2022-11-25] VITALS: Ht 170 cm; Wt 131.5 kg
[~2022-11-25 20:23] MED LIST changes: +BROM118S61 PO; -D-ME118S33 PO
[2022-11-25] MEDS ORDERED: RT-ALBUTEROL SULF 2.5 MG/3 ML PRE-MIX VIAL INH STA (21:02)
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
[2022-11-25] MEDS ORDERED: RT-ALBUTEROL HFA 8.5 GM INHALER IH STA (21:57)
[2022-11-25] MEDS ORDERED: ALBU2.5V4 INH (22:04)
[2022-11-25] MEDS ORDERED: NEBU-193 MC (22:06)
[2022-11-25 22:14] VITALS: BP 174/83
== END 2022-11-25 22:15 | disposition home or self-care (01) ==
LOC: EDUNIT# 20:23 → ER 20:25
DX: T59.811A Toxic effect of smoke, accidental (unintentional), initial encounter (principal); J45.901 Unspecified asthma with (acute) exacerbation; G47.30 Sleep apnea, unspecified; E66.9 Obesity, unspecified; F17.210 Nicotine dependence, cigarettes, uncomplicated; Z99.89 Dependence on other enabling machines and devices; Z68.42 Body mass index [BMI] 45.0-49.9, adult
CPT/HCPCS: 71046; 94640